=== PATIENT | female | born 1975 | race Caucasian/White ===

== ENCOUNTER 2023-07-26 21:45 | Emergency (ER) | payer MEDICARE, MEDICAID, SELFPAY ==
--- NOTE | ~2023-07-26 | XR_ITS ---
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 RESULT: Lines, tubes, and devices: None. Lungs and pleura: Clear. Cardiomediastinal silhouette: Normal. Other: No acute osseous or upper abdominal finding. IMPRESSION: No acute cardiopulmonary process. Reviewed, dictated and finalized at location K. TER OPERATOR
[2023-07-26 21:45] VITALS: BP 105/65; PULSE 110; RESP 20; TEMP 36.6; O2SAT 100
[2023-07-26 21:50] LABS: Glucose Point of Care 201 mg/dl (65-105)
--- NOTE | 2023-07-26 21:53 | ED.NAVMDI ---
HPI - Nausea/Vomiting/Diarrhea General Chief complaint: Nausea/Vomiting/Diarrhea Stated complaint: sick Time Seen by Provider: 07/26/23 21:48 History of Present Illness HPI Narrative: Patient is a 47 year old female with history of DM, CHF, DVT on Xeralto, CKD here with flu like symptoms. She notes that for the last 2 days she has been having multiple symptoms including headache, sore throat, hot flashes, chills, productive cough, nausea, vomiting and myalgias. She denies obtaining a fever at home. She has been taking some over the counter medication including Vicks cough medicine without help of her symptoms. She notes that multiple family members work in nursing homes so she is unsure if she could have second hand been exposed to anything like COVID. Of note, she recently moved here from [place] and has never been to this or any other local facilities in the past. She takes bumex 2mg in the AM and 1mg in the PM, is unsure if she has put on any additional water weight since this illness began. She notes that her blood sugars have been running close to 300 at home since yesterday, bolused herself some insulin just prior to presentation. She denies any chest pain. No history of CAD or prior MT. Related Data Home Medications Medication Instructions Recorded Confirmed atorvastatin 80 mg tablet 80 mg PO DAILY 07/26/23 07/26/23 bumetanide 1 mg tablet See Rx Instructions .Route .COMPLEX 07/26/23 07/26/23 celecoxib 200 mg capsule 200 mg PO BID 07/26/23 07/26/23 cetirizine 10 mg tablet 10 mg PO DAILY 07/26/23 07/26/23 dapagliflozin propanediol 10 mg 10 mg PO DAILY 07/26/23 07/26/23 tablet (Farxiga) insulin detemir U-100 100 unit/mL 46 unit subcut DAILY 07/26/23 07/26/23 subcutaneous solution (Levemir U-100 Insulin) insulin lispro 100 unit/mL See Rx Instructions .Route .COMPLEX 07/26/23 07/26/23 subcutaneous solution (Humalog U-100 Insulin) metoprolol succinate 25 mg 25 mg PO DAILY 07/26/23 07/26/23 tablet,extended release 24 hr pregabalin 100 mg capsule 100 mg PO DAILY 07/26/23 07/26/23 rivaroxaban 20 mg tablet (Xarelto) 20 mg PO DAILY 07/26/23 07/26/23 sennosides 8.6 mg tablet 8.6 mg PO BID PRN Constipation 07/26/23 07/26/23 Allergies Allergy/AdvReac Type Severity Reaction Status Date / Time cephalexin [From Keflex] Allergy Unknown Verified 07/26/23 21:57 codeine Allergy Unknown Verified 07/26/23 21:57 erythromycin base Allergy Unknown Verified 07/26/23 21:57 Review of Systems Review of Systems: All systems reviewed & are unremarkable except as noted in HPI and below Exam Narrative: GENERAL: Well-appearing, well-nourished, and in no acute distress. HEAD: Normocephalic, atraumatic. EYES: PERRLA and EOMI. ENT: Nares clear. Mucous membranes dry. NECK: Supple. CHEST: Clear to auscultation. No respiratory distress. HEART: Tachycardic. Normal peripheral pulses. ABDOMEN: Soft, nontender, nondistended. EXTREMITIES: Normal range of motion. No edema. SKIN: Warm, dry, no rash. NEURO: No focal deficits. Alert and oriented x3. PSYCH: Normal mood and affect. Course Course Emergency Course: Chart review performed. Patient is here with multiple flu like symptoms. Triage vitals show tachycardia, otherwise grossly normal. POC glucose 201. Patient seen and evaluated. Non toxic appearing. Concern for infectious process including pneumonia, COVID, influenza, RSV, UTI. Workup has been ordered accordingly. Given her complex history with CHF, DVTs and DM will do cardiac workup as well as a DKA workup. She does have a history of CHF, unsure what her EF is, given acute illness with vomiting and tachycardia, will do gentle hydration with 500mL initially and reevaluate. Tylenol ordered for headache. COVID, influenza, RSV negative. CXR reviewed by myself, no acute process. Lab work reviewed. No leukocytosis, electrolytes grossly normal. Creatinine 1.29, no baseline comparison, she does note history of CKD. BNP mildly elevated at
[2023-07-26 22:00] VITALS: O2SAT 100
--- NOTE | 2023-07-26 22:00 | ECG_ITS ---
Measurements Intervals [place] Rate: 106 P: 29 ID: 140 QRS: -18 QRSD: 85 T: 105 QT: 335 QTc: 446 Interpretive Statements SINUS TACHYCARDIA BASELINE ARTIFACT POSSIBLE LEFT ATRIAL ENLARGEMENT [-0.1mV P-WAVE IN V1/V2] POSSIBLE RIGHT VENTRICULAR CONDUCTION DELAY [RSR (QR) IN V1/V2] LOW-VOLTAGE QRS IN PRECORDIAL LEADS LEFT VENTRICULAR HYPERTROPHY AND ST-T CHANGE [VOLTAGE CRITERIA PLUS ST/T ABNORMALITY] ABNORMAL ECG NO PREVIOUS ECG AVAILABLE FOR COMPARISON Electronically Signed On 07-27-2023 17:04:03 SUBWAY GUARD by Richard Schultz M.D.
[2023-07-26 22:44] LABS: SARS-CoV-2 RNA PCR Negative (Negative)
[2023-07-26 22:45] LABS: Influenza A QL RT-PCR Negative (Negative); Influenza B QL RT-PCR Negative (Negative); RSV RNA, RT-PCR Negative (Negative)
[2023-07-26] MEDS: ONDANSETRON HCL ODT 4 MG TABLET PO (22:47)
[2023-07-26 22:51] LABS: Basophils Absolute Auto 0.06 K/mm3 (0.00-0.10); Basophils Percent Auto 0.8 % (0.0-1.0); Eosinophils Absolute Auto 0.18 K/mm3 (0.02-0.50); Eosinophils Percent Auto 2.3 % (1.0-6.0); Hematocrit 42.9 % (35.0-49.0); Hemoglobin 13.5 g/dL (12.0-15.0); Immature Granulocyte Absolute 0.04 K/mm3 (0.00-0.00); Immature Granulocyte Percent A 0.5 % (0.0-0.0); Lymphocytes Absolute Auto 2.02 K/mm3 (1.10-4.50); Lymphocytes Percent Auto 25.7 % (18.0-42.0); Mean Corpuscular HGB Conc 31.5 g/dL (32.0-36.0); Mean Corpuscular Hemoglobin 29.3 pg (27.0-31.0); Mean Corpuscular Volume 93.3 fL (78.0-102.0); Mean Platelet Volume 11.7 fl (9.2-11.8); Monocytes Absolute Auto 0.56 K/mm3 (0.10-0.90); Monocytes Percent Auto 7.1 % (2.0-11.0); Neutrophils Percent Auto 63.6 % (50.0-70.0); Platelet Count Result 206 K/mm3 (150-420); Red Cell Distribution Width 13.4 % (11.6-14.4); White Blood Count 7.9 K/mm3 (4.8-10.8)
[2023-07-26 23:01] LABS: INR 0.9; Partial Thromboplastin Time 25.4 SEC (23.90-30.70); Prothrombin Time 10.1 Seconds (9.50-12.10)
[2023-07-26] MEDS: SODIUM CHLORIDE 0.9% IV 500 ML 999 ML IV CONT (23:02)
[2023-07-26 23:05] VITALS: BP 110/62; PULSE 74; RESP 18; O2SAT 99
[2023-07-26] MEDS: ACETAMINOPHEN 325 MG TABLET 650 MG PO (23:05)
[2023-07-26 23:06] LABS: Alanine Aminotransferase 40 U/L (14-59); Albumin Level 3.4 g/dL (3.4-5.0); Alkaline Phosphatase 228 U/L (46-116); Anion Gap 5 mmol/L (8-16); Aspartate Amino Transferase 17 U/L (15-37); Bilirubin,Total 0.3 mg/dL (0.00-1.00); Blood Urea Nitrogen 16 mg/dL (7-18); Calcium 9.8 mg/dL (8.5-10.1); Carbon Dioxide 31 mmol/L (21-32); Chloride 103 mmol/L (98-108); Estimated CRCL calculation 53 ml/min; Estimated Glomerular Filt Rate 44; Glucose 180 mg/dL (70-99); Lipase 140 U/L (16-77); Magnesium 2.1 mg/dL (1.8-2.4); NT Pro B Type Natriuretic Pept 1359 pg/mL (0-125); Osmolality Calculated 294 mOsm/kg (285-295); Potassium 3.8 mmol/L (3.5-5.1); Sodium 139 mmol/L (136-145); Total Protein 7.7 g/dL (6.4-8.2); Troponin I 26.5 ng/L (0.00-60.4)
[2023-07-26 23:08] LABS: CRP < 0.1 mg/dL (0.0-0.9)
[2023-07-26 23:12] LABS: HCO3 VBG 19.7 mEq/l (24.0-30.0); PCO2 VBG 34.5 mmHg (42.0-48.0); PO2 VBG 44.9 mmHg (35.0-45.0); pH VBG 7.37 (7.33-7.43)
[2023-07-26] MEDS: KETOROLAC 15 MG/ML VIAL (*BKC) IV PUSH (23:21)
[2023-07-26 23:28] LABS: Device ROOM AIR
[2023-07-26 23:36] VITALS: BP 107/62; PULSE 71; RESP 18; TEMP 36.6; O2SAT 100
== END 2023-07-26 23:42 | disposition home or self-care (01) ==
PROVIDERS: Emergency Provider Student in an Organized Health Care Education/Training Program
DX: B34.9 Viral infection, unspecified (principal); R79.89 Other specified abnormal findings of blood chemistry; R51.9 Headache, unspecified; R11.2 Nausea with vomiting, unspecified; I50.9 Heart failure, unspecified; E11.22 Type 2 diabetes mellitus with diabetic chronic kidney disease; N18.9 Chronic kidney disease, unspecified; Z86.718 Personal history of other venous thrombosis and embolism; Z79.01 Long term (current) use of anticoagulants; Z79.899 Other long term (current) drug therapy; Z20.822 Contact with and (suspected) exposure to COVID-19
CPT/HCPCS: 36415; 71046; 80053; 82803; 82948; 83690; 83735; 83880; 84484; 85025; 85610; 85730; 86140; 87637; 93005; 96374; 99284; A9270; J1885; J7040

== ENCOUNTER 2023-08-29 01:53 | Emergency (ER) | payer MEDICARE, SELFPAY ==
[2023-08-29 01:53] VITALS: BP 100/61; PULSE 68; RESP 18; TEMP 36.4; O2SAT 96
[2023-08-29 02:01] LABS: Glucose Point of Care 366 mg/dl (65-105)
--- NOTE | 2023-08-29 02:14 | ED.EXTPRO ---
HPI - Extremity Problem General Chief complaint: Extremity Problem,Nontraumatic Stated complaint: foot pain Time Seen by Provider: 08/29/23 01:59 Source: patient and family Mode of arrival: ambulatory Limitations: no limitations History of Present Illness HPI Narrative: PATIENT IS 47 YEARS OLD WHITE FEMALE CAME TO THE EMERGENCY ROOM BY PRIVATE CAR FROM HOME TELLING ME THAT HER LEFT FOOT IS COLD AND SHE IS WORRIED ABOUT BLOOD CLOT GOING TO HER HEART. PATIENT IS SCHEDULED FOR PERIPHERAL VASCULAR EVALUATION NEXT WEEK BY A SPECIALIST. HISTORY OF DEEP VEIN THROMBOSIS AND PULMONARY EMBOLISM AND CURRENTLY ON ELIQUIS. PATIENT DENIES ANY FEVER, CHILLS, NAUSEA, VOMITING, CHEST PAIN, SHORTNESS OF BREATH, BACK PAIN, BELLY PAIN. PATIENT CONCERN ABOUT THE POSSIBILITY OF THE BLOOD CLOT WILL BUST AND GO TO HER HEART. NO RECENT TRAUMA. Related Data Home Medications Medication Instructions Recorded Confirmed atorvastatin 80 mg tablet 80 mg PO DAILY 07/26/23 07/26/23 bumetanide 1 mg tablet See Rx Instructions .Route .COMPLEX 07/26/23 07/26/23 celecoxib 200 mg capsule 200 mg PO BID 07/26/23 07/26/23 cetirizine 10 mg tablet 10 mg PO DAILY 07/26/23 07/26/23 dapagliflozin propanediol 10 mg 10 mg PO DAILY 07/26/23 07/26/23 tablet (Farxiga) insulin detemir U-100 100 unit/mL 46 unit subcut DAILY 07/26/23 07/26/23 subcutaneous solution (Levemir U-100 Insulin) insulin lispro 100 unit/mL See Rx Instructions .Route .COMPLEX 07/26/23 07/26/23 subcutaneous solution (Humalog U-100 Insulin) metoprolol succinate 25 mg 25 mg PO DAILY 07/26/23 07/26/23 tablet,extended release 24 hr pregabalin 100 mg capsule 100 mg PO DAILY 07/26/23 07/26/23 rivaroxaban 20 mg tablet (Xarelto) 20 mg PO DAILY 07/26/23 07/26/23 sennosides 8.6 mg tablet 8.6 mg PO BID PRN Constipation 07/26/23 07/26/23 Allergies Allergy/AdvReac Type Severity Reaction Status Date / Time cephalexin [From Keflex] Allergy Unknown Verified 07/26/23 21:57 codeine Allergy Unknown Verified 07/26/23 21:57 erythromycin base Allergy Unknown Verified 07/26/23 21:57 Review of Systems Review of Systems: All systems reviewed & are unremarkable except as noted in HPI and below Exam Narrative: GENERAL APPEARANCE: WELL-DEVELOPED, WELL-NOURISHED SKIN: NORMAL COLOR HEAD: NORMOCEPHALIC, NONTRAUMATIC EYES: CLEAR CONJUNCTIVA ENT: OROPHARYNX NORMAL, EARS NORMAL, NOSE NORMAL NECK: SUPPLE, NONTENDER CHEST AND RESPIRATORY: AIRWAY PATENT, NO RESPIRATORY DISTRESS, NO ACCESSORY MUSCLE USE HEART: REGULAR RATE/RHYTHM ABDOMEN: SOFT, NONTENDER, NO ORGANOMEGALY, QUIET BOWEL SOUNDS VASCULAR: NORMAL PERIPHERAL PULSES, NORMAL CAPILLARY REFILL. MUSCULOSKELETAL: LEFT FOOT SHOWED STATUS POST BEAK TOE AMPUTATION, CALLUS FORMATION AT THE PLANTAR SIDE OF THE 2ND TOE. NO BRUISES, NO SWELLING, NO ERYTHEMA, BOTH FEET ARE WARM AT THE SAME LEVEL. PEDAL PULSE AND TIBIALIS POSTERIOR ARE PALPABLE BILATERALLY NEUROLOGIC: ALERT AND ORIENTED ?3, STERNMAN IS NORMAL TESTED, NO GROSS MOTOR DEFICIT Course Vital Signs Vital signs: Vital Signs Temperature 36.4 C 08/29/23 01:53 Pulse Rate 68 08/29/23 01:53 Respiratory Rate 18 08/29/23 01:53 Blood Pressure 100/61 08/29/23 01:53 Pulse Oximetry 96 08/29/23 01:53 Oxygen Delivery Room Air 08/29/23 01:53 Temperature 36.4 C 08/29/23 01:53 Pulse Rate 68 08/29/23 01:53 Respiratory Rate 18 08/29/23 01:53 Blood Pressure 100/61 08/29/23 01:53 Pulse Oximetry 96 08/29/23 01:53 Oxygen Delivery Room Air 08/29/23 01:53 MDM - Extremity (Nontraumatic) Lab Data Labs: Lab Results 08/29/23 Range/Units 01:59 POC Capillary Glucose 366 H (65-
== END 2023-08-29 03:03 | disposition home or self-care (01) ==
PROVIDERS: Emergency Provider Emergency Medicine
DX: M79.672 Pain in left foot (principal); F41.9 Anxiety disorder, unspecified; Z79.4 Long term (current) use of insulin; Z79.899 Other long term (current) drug therapy; Z79.01 Long term (current) use of anticoagulants
CPT/HCPCS: 82948; 99282

== ENCOUNTER 2023-10-29 20:15 | Emergency (ER) | payer MEDICARE, MEDICAID, SELFPAY ==
[2023-10-29] VITALS (9 sets, daily range): BP systolic 110–142; BP diastolic 58–111; PULSE 98–109; RESP 16–20; TEMP 36.6; O2SAT 94–99
--- NOTE | ~2023-10-29 | XR_ITS ---
EXAMINATION: XR chest 1V portable INDICATION: Chest pain TECHNIQUE: Portable AP chest at 2115 hours COMPARISON: 07/26/2023 FINDINGS: The lungs are free of acute opacities. No pleural effusion or pneumothorax. The cardiomedia stinal silhouette is normal. IMPRESSION: 1. No acute cardiopulmonary abnormality. Reviewed, dictated and finalized at location F.
--- NOTE | 2023-10-29 20:36 | ECG_ITS ---
Measurements Intervals [place] Rate: 112 P: 40 ME: 152 QRS: -19 QRSD: 71 T: 90 QT: 326 QTc: 446 Interpretive Statements SINUS TACHYCARDIA LEFT VENTRICULAR HYPERTROPHY WITH ST-T CHANGE BORDERLINE ST-T WAVE ABNORMALITY- ANTEROLATERAL LEADS BASELINE ARTIFACT- I, II, III, AVR, AVL, AVF, V1-V6 ABNORMAL ECG COMPARED TO ECG 07/26/2023 22:17:56 NO SIGNIFICANT CHANGES Electronically Signed On 10-30-2023 6:41:22 CDT by Qamar Gill D.O.
--- NOTE | 2023-10-29 20:49 | PC.NURSE ---
Attempted to obtain IV access x [address] Peters aware and states that we can hold off on an IV for now and wait for her lab results to come back.
[2023-10-29 21:06] LABS: Basophils Absolute Auto 0.08 K/mm3 (0.00-0.10); Eosinophils Absolute Auto 0.21 K/mm3 (0.02-0.50); Eosinophils Percent Auto 2.6 % (1.0-6.0); Hematocrit 39.7 % (35.0-49.0); Hemoglobin 11.9 g/dL (12.0-15.0); Immature Granulocyte Absolute 0.04 K/mm3 (0.00-0.00); Immature Granulocyte Percent A 0.5 % (0.0-0.0); Lymphocytes Absolute Auto 1.31 K/mm3 (1.10-4.50); Lymphocytes Percent Auto 16.2 % (18.0-42.0); Mean Corpuscular Hemoglobin 29.3 pg (27.0-31.0); Mean Corpuscular Volume 97.8 fL (78.0-102.0); Mean Platelet Volume 11.9 fl (9.2-11.8); Monocytes Absolute Auto 0.52 K/mm3 (0.10-0.90); Monocytes Percent Auto 6.4 % (2.0-11.0); Neutrophils Absolute Auto 5.91 K/mm3 (1.70-7.20); Neutrophils Percent Auto 73.3 % (50.0-70.0); Platelet Count Result 145 K/mm3 (150-420); Red Blood Count 4.06 M/mm3 (4.20-5.40); Red Cell Distribution Width 14.5 % (11.6-14.4); White Blood Count 8.1 K/mm3 (4.8-10.8)
--- NOTE | 2023-10-29 21:06 | PC.NURSE ---
2020: Pt shaking, stating she is cold. Pt family states that when she gets really cold, she goes into seizures . Pt denies taking any medications for seizures. Multiple warm blankets provided.
[2023-10-29 21:21] LABS: D Dimer 0.22 mg/L (0.19-0.50); Partial Thromboplastin Time 27.5 Sec (23.9-30.70); Prothrombin Time 10.6 Seconds (9.50-12.1)
[2023-10-29 21:37] LABS: Alanine Aminotransferase 34 U/L (14-59); Albumin Level 3.4 g/dL (3.4-5.0); Alkaline Phosphatase 175 U/L (46-116); Anion Gap 8 mmol/L (8-16); Aspartate Amino Transferase 24 U/L (15-37); Bilirubin,Total 0.3 mg/dL (0.00-1.00); Blood Urea Nitrogen 30 mg/dL (7-18); Calcium 9.1 mg/dL (8.5-10.1); Carbon Dioxide 30 mmol/L (21-32); Chloride 103 mmol/L (98-108); Estimated CRCL calculation 54 ml/min; Estimated Glomerular Filt Rate 45; Glucose 227 mg/dL (70-99); Lipase 69 U/L (16-77); NT Pro B Type Natriuretic Pept 763 pg/mL (0-125); Osmolality Calculated 305 mOsm/kg (285-295); Potassium 4.7 mmol/L (3.5-5.1); Sodium 141 mmol/L (136-145); Total Protein 6.7 g/dL (6.4-8.2); Troponin I 13.9 ng/L (0.00-60.4)
[2023-10-29 21:39] LABS: CRP < 0.5 mg/dL (0.0-0.9)
--- NOTE | 2023-10-29 21:46 | PC.NURSE ---
Updated pt on plan for repeat EKG/troponin. Pt states that her CP has completely resolved, and that she wants to go home. Pt states that she feels fine and does not wish to stay for these repeat tests. Dr. Peters aware and will speak with the patient.
[2023-10-29 21:51] LABS: SARS-CoV-2 RNA PCR Negative (Negative)
[2023-10-29 21:57] LABS: Influenza A QL RT-PCR Negative (Negative); Influenza B QL RT-PCR Negative (Negative); RSV RNA, RT-PCR Negative (Negative)
--- NOTE | 2023-10-29 22:01 | ED.CHESTPAIN ---
HPI - Chest Pain General Chief Complaint: Chest Pain Stated Complaint: chest pain Time Seen by Provider: 10/29/23 20:36 Source: patient and family Mode of arrival: ambulatory Limitations: no limitations History of Present Illness HPI narrative: this is a 39-year-old female with history of CHF diabetes presents with chest pain with some deep inspiration and movement with no nausea vomiting no shortness of breath no diaphoresis. There is no fever chills vitals are stable there is no abdominal pain no dysuria no flank pain. MD complaint: chest pain and chest discomfort Onset (ago): day(s) Timing of current episode: episodic, now resolved and other ( Reproduced with palpation) Prior episodes: Yes Onset: during exertion Pain location: substernal and parasternal Severity: mild Quality: aching Relieving factors: nothing Risk Factors Coronary artery disease risk factors: diabetes, smoking history and hyperlipidemia Related Data Home Medications Medication Instructions Recorded Confirmed atorvastatin 80 mg tablet 80 mg PO DAILY 07/26/23 10/29/23 bumetanide 1 mg tablet See Rx Instructions .Route .COMPLEX 07/26/23 10/29/23 celecoxib 200 mg capsule 200 mg PO BID 07/26/23 10/29/23 dapagliflozin propanediol 10 mg 10 mg PO DAILY 07/26/23 10/29/23 tablet (Farxiga) insulin detemir U-100 100 unit/mL 46 unit subcut DAILY 07/26/23 10/29/23 subcutaneous solution (Levemir U-100 Insulin) insulin lispro 100 unit/mL See Rx Instructions .Route .COMPLEX 07/26/23 10/29/23 subcutaneous solution (Humalog U-100 Insulin) metoprolol succinate 25 mg 25 mg PO DAILY 07/26/23 10/29/23 tablet,extended release 24 hr sennosides 8.6 mg tablet 8.6 mg PO BID PRN Constipation 07/26/23 10/29/23 aspirin 81 mg PO DAILY 10/29/23 10/29/23 ezetimibe 10 mg tablet 10 mg PO DAILY 10/29/23 10/29/23 gabapentin 400 mg capsule See Rx Instructions .Route .COMPLEX 10/29/23 10/29/23 Allergies Allergy/AdvReac Type Severity Reaction Status Date / Time cephalexin [From Keflex] Allergy Unknown Verified 10/29/23 20:51 codeine Allergy Unknown Verified 10/29/23 20:51 erythromycin base Allergy Unknown Verified 10/29/23 20:51 Review of Systems Review of Systems: All systems reviewed & are unremarkable except as noted in HPI and below PMFSH Past Medical History Medical History Diabetes mellitus Exam Const: General: healthy appearing Nutritional Appearance: well nourished Orientation/consciousness: patient oriented x3 Limitations: no limitations Eyes: Conjunctivae: conjunctivae normal Chest: Chest palpation & inspection: normal inspection of the chest and tenderness Other: reproducible chest pain with palpation Resp: Effort & Inspection: normal respiratory effort Auscultation: clear to auscultation bilaterally Cardio: Rate: regular rate Rhythm: regular rhythm GI: GI Palp: Yes Soft to palpation Auscultation: normal bowel sounds : General: Yes bladder normal to palpation Skin: General skin exam: normal color Extrem: General: normal to inspection, no clubbing, cyanosis or edema and no pedal edema Course Course Emergency Course: patient had EKG with no ST or T changes labs showed negative troponin negative D-dimer chest x-ray with no significant abnormality. Vitals are stable her BNP was mildly elevated at 700. The patient had negative COVID and is requesting to go home because she feels much better. Her chest pain has resolved completely it was reproducible with palpation. Vital Signs Vital signs: Vital Signs Pulse Rate 108 H 10/29/23 20:15 Temperature 36.6 C 10/29/23 20:17 Pulse Rate 106 H 10/29/23 21:46 Respiratory Rate 18 10/29/23 21:46 Blood Pressure 110/58 L 10/29/23 21:46 Pulse Oximetry 96 10/29/23 21:46 Oxygen Delivery Room Air 10/29/23 21:41 MDM - Chest Pain Lab Data 10/29/23 21:02 10/29/23 21:02
== END 2023-10-29 22:10 | disposition home or self-care (01) ==
PROVIDERS: Emergency Provider Emergency Medicine; PCP Physician Assistant
DX: M94.0 Chondrocostal junction syndrome [Tietze] (principal); I50.9 Heart failure, unspecified; E11.9 Type 2 diabetes mellitus without complications; Z20.822 Contact with and (suspected) exposure to COVID-19
CPT/HCPCS: 36415; 71045; 80053; 83690; 83880; 84484; 85025; 85380; 85610; 85730; 86140; 87637; 93005; 99284

== ENCOUNTER 2023-12-11 19:34 | Emergency (ER) | payer MEDICARE, MEDICAID, SELFPAY ==
--- NOTE | 2023-12-11 19:35 | ED.NAVMDI ---
HPI - Nausea/Vomiting/Diarrhea General Chief complaint: Nausea/Vomiting/Diarrhea Stated complaint: Nausea and Vomiting Time Seen by Provider: 12/11/23 19:35 Source: patient Mode of arrival: EMS Limitations: no limitations History of Present Illness HPI Narrative: Patient is a 47-year-old female with a hangover symptoms today. She is just feeling not well after drinking 16 drinks last night. She is having a good time last evening due to her birthday. She is not a baseline alcoholic. He does not drink all the time. She does not have alcohol withdrawal problems. 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 She is diabetic type 2, insulin using. Blood sugar in route was 181. She came by ambulance. MD elicited complaint: nausea and vomiting Pertinent past history: anorexia Onset (ago): day(s) (1) Description of vomiting: watery Associated nausea: Yes Associated abdominal pain: No Location of pain: none Severity: moderate ( nausea issues) Pain scale (0-10): 5 Exacerbating factors: none Relieving factors: none Context: alcohol abuse ( last night) and other Associated symptoms: weakness Related Data Home Medications Medication Instructions Recorded Confirmed atorvastatin 80 mg tablet 80 mg PO DAILY 07/26/23 12/11/23 bumetanide 1 mg tablet See Rx Instructions .Route .COMPLEX 07/26/23 10/29/23 celecoxib 200 mg capsule 200 mg PO BID 07/26/23 12/11/23 dapagliflozin propanediol 10 mg 10 mg PO DAILY 07/26/23 12/11/23 tablet (Farxiga) insulin detemir U-100 100 unit/mL 46 unit subcut DAILY 07/26/23 10/29/23 subcutaneous solution (Levemir U-100 Insulin) insulin lispro 100 unit/mL See Rx Instructions .Route .COMPLEX 07/26/23 12/11/23 subcutaneous solution (Humalog U-100 Insulin) metoprolol succinate 25 mg 25 mg PO DAILY 07/26/23 12/11/23 tablet,extended release 24 hr aspirin 81 mg PO DAILY 10/29/23 12/11/23 ezetimibe 10 mg tablet 10 mg PO DAILY 10/29/23 12/11/23 gabapentin 400 mg capsule See Rx Instructions .Route .COMPLEX 10/29/23 12/11/23 Allergies Allergy/AdvReac Type Severity Reaction Status Date / Time cephalexin [From Keflex] Allergy Unknown Unknown Verified 12/11/23 19:36 codeine Allergy Unknown Verified 12/11/23 19:36 erythromycin base Allergy Unknown Verified 12/11/23 19:36 Review of Systems Review of Systems: All systems reviewed & are unremarkable except as noted in HPI and below Constitutional: Constitutional: Reports no additional constitutional complaints Eyes: Eyes: Reports no additional eye complaints ENT: Reports system reviewed and no additional complaints, except as documented Cardiovascular: Cardiovascular: Reports no additional cardiovascular complaints Respiratory: Respiratory: Reports no additional respiratory complaints Gastrointestinal: Gastrointestinal: Reports no additional gastrointestinal complaints Genitourinary: Genitourinary: Reports no additional female genitourinary complaints Musculoskeletal: Musculoskeletal: Reports no additional musculoskeletal complaints Integumentary/Breasts: Skin/Breast: Reports system reviewed and no additional complaints, except as docu Neurologic: Reports system reviewed and no additional complaints, except as documented Psychiatric: Psychiatric: Reports no additional psychiatric complaints Endocrine: Endocrine: Reports no additional endocrine complaints Hematologic/Lymphatic: Hematologic/Lymphatic: Reports no additional hematologic/lymphatic complaints Allergic/Immunologic: Allergic/Immunologic: Reports no additional allergic/immunologic complaints PMFSH Past Medical History Medical History Diabetes mellitus Exam Const: General: ill appearing Nutritional Appearance: well nourished Orientation/consciousness: patient oriented x3 HENMT: Head: normal to inspection Ears: external ears normal Face/Nose/Sinus: Normal external nose present Eyes: Conjunctiv
[2023-12-11] MEDS: SODIUM CHLORIDE 0.9% IV 1,000 ML 999 ML IV CONT (19:58)
[2023-12-11 19:59] VITALS: PULSE 82; RESP 18; TEMP 36.6; O2SAT 98
[2023-12-11] MEDS: PROMETHAZINE HCL 25 MG/ML AMPUL IVPB (19:59)
[2023-12-11 20:15] VITALS: BP 141/61
[2023-12-11 20:17] LABS: Basophils Absolute Auto 0.06 K/mm3 (0.00-0.10); Basophils Percent Auto 0.6 % (0.0-1.0); Eosinophils Absolute Auto 0.08 K/mm3 (0.02-0.50); Eosinophils Percent Auto 0.8 % (1.0-6.0); Hematocrit 44.1 % (35.0-49.0); Hemoglobin 12.8 g/dL (12.0-15.0); Immature Granulocyte Absolute 0.03 K/mm3 (0.00-0.00); Immature Granulocyte Percent A 0.3 % (0.0-0.0); Lymphocytes Absolute Auto 1.42 K/mm3 (1.10-4.50); Lymphocytes Percent Auto 15.1 % (18.0-42.0); Mean Corpuscular Hemoglobin 29.2 pg (27.0-31.0); Mean Corpuscular Volume 100.7 fL (78.0-102.0); Mean Platelet Volume 12.2 fl (9.2-11.8); Monocytes Absolute Auto 0.65 K/mm3 (0.10-0.90); Monocytes Percent Auto 6.9 % (2.0-11.0); Neutrophils Absolute Auto 7.18 K/mm3 (1.70-7.20); Neutrophils Percent Auto 76.3 % (50.0-70.0); Platelet Count Result 159 K/mm3 (150-420); Red Blood Count 4.38 M/mm3 (4.20-5.40); Red Cell Distribution Width 14.1 % (11.6-14.4); White Blood Count 9.4 K/mm3 (4.8-10.8)
[2023-12-11 20:35] LABS: Albumin Level 2.4 g/dL (3.4-5.0); Alkaline Phosphatase 217 U/L (46-116); Anion Gap 9 mmol/L (4-12); Aspartate Amino Transferase 38 U/L (15-37); Bilirubin,Total 0.4 mg/dL (0.00-1.00); Blood Urea Nitrogen 22 mg/dL (7-18); Calcium 8.8 mg/dL (8.5-10.1); Carbon Dioxide 25 mmol/L (21-32); Chloride 106 mmol/L (98-108); Estimated CRCL calculation 77 ml/min; Estimated Glomerular Filt Rate > 60; Glucose 174 mg/dL (70-99); Magnesium 2.6 mg/dL (1.8-2.4); Osmolality Calculated 297 mOsm/kg (285-295); Potassium 5.3 mmol/L (3.5-5.1); Sodium 140 mmol/L (136-145); Total Protein 7.2 g/dL (6.4-8.2)
--- NOTE | 2023-12-11 20:52 | PC.NURSE ---
Pt assisted to restroom with wheelchair. Pt irritable and moaning. Denies pain. Stated I don't fucking feel good . Pt bed linens changed, pt placed in gown and repositioned for comfort.
[2023-12-11 20:54] LABS: Alanine Aminotransferase 34 U/L (14-59)
[2023-12-11] MEDS: INSULIN HUMAN REGULAR (*BKC) 1,000 UNITS/10 ML VIAL 5 UNITS IV PUSH (21:01)
[2023-12-11] MEDS: DEXTROSE 50% 25 GM/50 ML SYRINGE IV PUSH (21:02)
[2023-12-11 21:49] LABS: Glucose Point of Care 176 mg/dl (65-105)
[2023-12-11 22:27] LABS: Anion Gap 8 mmol/L (4-12); Blood Urea Nitrogen 23 mg/dL (7-18); Calcium 8.7 mg/dL (8.5-10.1); Carbon Dioxide 30 mmol/L (21-32); Chloride 109 mmol/L (98-108); Estimated CRCL calculation 66 ml/min; Estimated Glomerular Filt Rate 57; Glucose 163 mg/dL (70-99); Osmolality Calculated 311 mOsm/kg (285-295); Sodium 147 mmol/L (136-145)
[2023-12-11 22:45] VITALS: BP 132/88; PULSE 88; RESP 16; TEMP 36.6; O2SAT 97
--- NOTE | 2023-12-30 19:20 | PC.NURSE ---
Addendum entered by Princess Galvan RN 01/07/24 19:27: on 12/11/2023 @ 1958 promethazine was given thru [facility] in [place]. Infusion was stopped @ 2009. Error in prior documentation Original Note: Addendum: On 12/11/2023 @ 1952 promethazine was stopped
== END 2023-12-11 23:13 | disposition home or self-care (01) ==
PROVIDERS: Emergency Provider Emergency Medicine; PCP Physician Assistant
DX: K52.9 Noninfective gastroenteritis and colitis, unspecified (principal); E86.0 Dehydration; F10.10 Alcohol abuse, uncomplicated; E87.5 Hyperkalemia; E11.9 Type 2 diabetes mellitus without complications; Z79.4 Long term (current) use of insulin; Z79.82 Long term (current) use of aspirin
CPT/HCPCS: 36415; 80048; 80053; 82948; 83735; 85025; 96361; 96365; 96374; 96375; 99284; J1815; J2550; J7030

== ENCOUNTER 2024-01-02 13:22 | Emergency (ER) | payer MEDICARE, MEDICAID, SELFPAY ==
--- NOTE | ~2024-01-02 | XR_ITS ---
EXAMINATION: XR shoulder RT min 2V DATE: 01/02/2024 13:42 INDICATION: Right shoulder pain. Fall. TECHNIQUE: 3 views of right shoulder were obtained. COMPARISON: None. FINDINGS: Bone alignment is normal. No fracture. There is mild osteoarthritis of glenohumeral joint a nd moderate osteoarthritis of acromioclavicular joint. IMPRESSION: 1. Polyarticular osteoarthritis. Reviewed, dictated and finalized at location A.
[2024-01-02 13:22] VITALS: BP 94/64; PULSE 83; RESP 16; TEMP 36.6; O2SAT 97
--- NOTE | 2024-01-02 13:32 | ED.UPPEXIN ---
HPI - Extremity Injury (Upper) General Chief Complaint: Extremity Injury, Upper Stated Complaint: shoulder pain Time Seen by Provider: 01/02/24 13:26 Source: patient and family Mode of arrival: ambulatory Limitations: no limitations History of Present Illness HPI narrative: this is a 48-year-old female that had a fall approximately 3 weeks ago and injured her right shoulder has been taking prescribed past medication with minimal relief. Has decreased range of motion secondary to pain. No other injuries, with no numbness or tingling radiating down her shoulder, rating her pain about a 10. MD complaint: injury to: right Onset (ago): week(s) Other Extremity Injury: Right: shoulder ( decreased range of motion and tenderness with palpation) Other injuries: none Handedness: right Place: outdoors Severity: severe Severity scale (1-10): 8 Relieving factors: immobilization Exacerbating factors: movement of extremity Context: fall Associated symptoms: denies other symptoms Related Data Home Medications Medication Instructions Recorded Confirmed atorvastatin 80 mg tablet 80 mg PO DAILY 07/26/23 01/02/24 bumetanide 1 mg tablet See Rx Instructions .Route .COMPLEX 07/26/23 01/02/24 celecoxib 200 mg capsule 200 mg PO BID 07/26/23 01/02/24 dapagliflozin propanediol 10 mg 10 mg PO DAILY 07/26/23 01/02/24 tablet (Farxiga) insulin detemir U-100 100 unit/mL 46 unit subcut DAILY 07/26/23 01/02/24 subcutaneous solution (Levemir U-100 Insulin) insulin lispro 100 unit/mL See Rx Instructions .Route .COMPLEX 07/26/23 01/02/24 subcutaneous solution (Humalog U-100 Insulin) metoprolol succinate 25 mg 25 mg PO DAILY 07/26/23 01/02/24 tablet,extended release 24 hr aspirin 81 mg PO DAILY 10/29/23 01/02/24 ezetimibe 10 mg tablet 10 mg PO DAILY 10/29/23 01/02/24 gabapentin 400 mg capsule See Rx Instructions .Route .COMPLEX 10/29/23 01/02/24 Allergies Allergy/AdvReac Type Severity Reaction Status Date / Time cephalexin [From Keflex] Allergy Unknown Unknown Verified 01/02/24 13:28 codeine Allergy Unknown Verified 01/02/24 13:28 erythromycin base Allergy Unknown Verified 01/02/24 13:28 Review of Systems Review of Systems: All systems reviewed & are unremarkable except as noted in HPI and below PMFSH Past Medical History Medical History Diabetes mellitus Exam Const: General: healthy appearing, no acute distress and alert Nutritional Appearance: well nourished Orientation/consciousness: patient oriented x3 Limitations: no limitations Neck: Neck: normal visual inspection Chest: Chest palpation & inspection: normal inspection of the chest Resp: Effort & Inspection: normal respiratory effort Auscultation: clear to auscultation bilaterally Cardio: Rate: regular rate Rhythm: regular rhythm Skin: General skin exam: normal color Rashes: no rashes Wounds: no wounds Neuro: General: patient oriented x3, moves all extremities and no meningeal signs Extrem: Other: Decreased range of motion right shoulder with tenderness in the bicipital groove with active and passive movement. Course Course Emergency Course: Patient received 60mg IM Toradol and after reassessment patient's pain level has a mildly improved, x-ray performed of the right shoulder shows no acute fractures. Vital Signs Vital signs: Vital Signs Temperature 36.6 C 01/02/24 13:22 Pulse Rate 83 01/02/24 13:22 Respiratory Rate 16 01/02/24 13:22 Blood Pressure 94/64 L 01/02/24 13:22 Pulse Oximetry 97 01/02/24 13:22 Oxygen Delivery Room Air 01/02/24 13:22 Temperature 36.6 C 01/02/24 13:22 Pulse Rate 83 01/02/24 13:22 Respiratory Rate 16 01/02/24 13:22 Blood Pressure 94/64 L 01/02/24 13:22 Pulse Oximetry 97 01/02/24 13:22 Oxygen Delivery Room Air 01/02/24 13:22 Critical Care Time Critical Care Time Critical Care Time: No Discharge Plan Disch
--- NOTE | 2024-01-02 13:33 | PC.NURSE ---
Patient taken to xray
[2024-01-02] MEDS: KETOROLAC (*BKC) 60 MG/2 ML VIAL IM (13:45)
[2024-01-02 14:07] VITALS: BP 87/66; PULSE 88; RESP 16; TEMP 36.6; O2SAT 97
== END 2024-01-02 14:07 | disposition home or self-care (01) ==
LOC: CHSED 14:00
PROVIDERS: Emergency Provider Emergency Medicine; PCP Physician Assistant
DX: S46.011A Strain of muscle(s) and tendon(s) of the rotator cuff of right shoulder, initial encounter (principal); T14.90XA Injury, unspecified, initial encounter; E11.9 Type 2 diabetes mellitus without complications
CPT/HCPCS: 73030; 96372; 99283; J1885

== ENCOUNTER 2024-01-28 10:34 | Outpatient (CLI) | payer MEDICARE, MEDICAID, SELFPAY ==
--- NOTE | ~2024-01-28 | MR_ITS ---
EXAMINATION: MR scapula RT wo con DATE: 01/28/2024 11:33 INDICATION: Right shoulder pain and limited range of motion post accident one month prior TECHNIQUE: Magnetic resonance imaging (MRI) of the right scapula was performed without intravenous co ntrast. Sequences included axial PD-weighted FS FSE and sagittal and coronal T1-weighted FSE and T2-w eighted FS FSE. COMPARISON: Right shoulder radiographs dated 01/02/2024 FINDINGS: Bone alignment is normal. Normal bone marrow signal with no fracture or pathologic marrow replacing p rocess. There is mild osteoarthritis at the right acromioclavicular and glenohumeral joints. Glenoid labrum appears normal. Physiologic amount fluid in the glenohumeral joint. The long head biceps tendo n appears normal. Moderate supraspinatus and mild subscapularis tendinopathy without discrete tear. L flynn head biceps tendon is normal. There is increased fluid in the subacromial/subdeltoid bursa consis tent with mild bursitis. There are a few normal right axillary lymph nodes with thin crescentic corti adriana surrounding large central fatty royal. IMPRESSION: 1. Moderate supraspinatus and mild subscapularis tendinopathy without tear. 2. Mild subacromial/subdeltoid bursitis. 2. Mild acromion clavicular and glenohumeral osteoarthritis. Reviewed, dictated and finalized at location A.
== END 2024-01-28 10:35 | disposition home or self-care (01) ==
PROVIDERS: PCP Physician Assistant; Visit Provider Physician Assistant
DX: M25.511 Pain in right shoulder (principal); M75.21 Bicipital tendinitis, right shoulder; M75.51 Bursitis of right shoulder; M19.011 Primary osteoarthritis, right shoulder
CPT/HCPCS: 73218

== ENCOUNTER 2024-06-25 11:53 | Emergency (ER) | payer MEDICARE, MEDICAID, SELFPAY ==
[2024-06-25 11:53] VITALS: BP 112/60; PULSE 103; RESP 16; TEMP 36.6; O2SAT 100
--- NOTE | 2024-06-25 12:22 | ED.WOUNDLAC ---
HPI - Wound/Laceration General Chief Complaint: Wound/Laceration Stated Complaint: WOUND CHECK Source: patient and family Mode of arrival: ambulatory Limitations: no limitations History of Present Illness HPI narrative: this is 48-year-old female with a blister on the heel of her left foot does see wound care and does have a history of diabetes. There is no drainage no warmth there is tender to touch. There is no fever chills, patient does complain of sinus congestion is tobacco abuser with no shortness of breath. Onset (ago): day(s) Patient tetanus UTD: Yes Related Data Home Medications Medication Instructions Recorded Confirmed atorvastatin 80 mg tablet 80 mg PO DAILY 07/26/23 01/02/24 bumetanide 1 mg tablet See Rx Instructions .Route .COMPLEX 07/26/23 01/02/24 celecoxib 200 mg capsule 200 mg PO BID 07/26/23 01/02/24 dapagliflozin propanediol 10 mg 10 mg PO DAILY 07/26/23 01/02/24 tablet (Farxiga) insulin detemir U-100 100 unit/mL 46 unit subcut DAILY 07/26/23 01/02/24 subcutaneous solution (Levemir U-100 Insulin) insulin lispro 100 unit/mL See Rx Instructions .Route .COMPLEX 07/26/23 01/02/24 subcutaneous solution (Humalog U-100 Insulin) metoprolol succinate 25 mg 25 mg PO DAILY 07/26/23 01/02/24 tablet,extended release 24 hr aspirin 81 mg PO DAILY 10/29/23 01/02/24 ezetimibe 10 mg tablet 10 mg PO DAILY 10/29/23 01/02/24 gabapentin 400 mg capsule See Rx Instructions .Route .COMPLEX 10/29/23 01/02/24 Allergies Allergy/AdvReac Type Severity Reaction Status Date / Time cephalexin [From Keflex] Allergy Unknown Unknown Verified 01/02/24 13:28 codeine Allergy Unknown Verified 01/02/24 13:28 erythromycin base Allergy Unknown Verified 01/02/24 13:28 Review of Systems Review of Systems: All systems reviewed & are unremarkable except as noted in HPI and below PMFSH Past Medical History Medical History Diabetes mellitus Exam Const: General: healthy appearing and no acute distress Nutritional Appearance: well nourished Orientation/consciousness: patient oriented x3 Limitations: no limitations HENMT: Other: Sinus congestion with drainage Eyes: Conjunctivae: conjunctivae normal Neck: Neck: normal visual inspection Chest: Chest palpation & inspection: normal inspection of the chest Resp: Effort & Inspection: normal respiratory effort Auscultation: clear to auscultation bilaterally Cardio: Rate: regular rate Rhythm: regular rhythm Skin: Wounds: wounds noted Other: blister the left heel Course Course Emergency Course: patient with some sinus congestion COVID RSV influenza and strep all performed and reviewed. Patient does follow with wound care and has a blister on her left heel and will give a dose of p.o. clindamycin in the ER. Vital Signs Vital signs: Vital Signs Temperature 36.6 C 06/25/24 11:53 Pulse Rate 103 H 06/25/24 11:53 Respiratory Rate 16 06/25/24 11:53 Blood Pressure 112/60 06/25/24 11:53 Pulse Oximetry 100 06/25/24 11:53 Oxygen Delivery Room Air 06/25/24 11:53 Temperature 36.6 C 06/25/24 11:53 Pulse Rate 103 H 06/25/24 11:53 Respiratory Rate 16 06/25/24 11:53 Blood Pressure 112/60 06/25/24 11:53 Pulse Oximetry 100 06/25/24 11:53 Oxygen Delivery Room Air 06/25/24 11:53 MDM - Wound/Laceration Lab Data Labs: Lab Results 06/25/24 Range/Units 12:03 Influenza A (RT-PCR) Negative (Negative) Influenza B (RT-PCR) Negative (Negative) RSV (RT-PCR) Negative (Negative) SARS-CoV-2 RNA (RT-PCR) Negative (Negative) Group A Strep (PCR) Not detected (Negative) Critical Care Time Critical Care Time Critical Care Time: No Discharge Plan Discharge Clinical Impression: Abscess Patient Disposition: Home, Self-Care Condition: Stable Instructions: Antibiotic Form, Abscess (ED) Additional Instructions: advised to keep follow-up appointment with wound care specialty and take medicine as prescribed. For ear pain and pressure can take Claritin [id number] daily x1 week Prescriptions: New clindamycin HCl 300 mg capsule 300 mg PO Q6H 10 Days Qty: 40 0RF No Action gabapentin 400 mg capsule See Rx Instructions .ROUTE .COMPLEX Rx Instructions: Take 1 capsule in the morning Take 1 capsule in the afternoon Take 3 capsules at bedtime ezetimibe 10 mg tablet 10 mg PO DAILY aspirin 81 mg PO DAILY celecoxib 200 mg Capsule 200 mg PO BID atorvastatin 80 mg Tablet 80 mg PO DAILY bumetanide 1 mg Tablet See Rx Instructions .ROUTE .COMPLEX Rx Instructions: Take 2 tabs in mornings and 1 every evening metoprolol succinate 25 mg Tablet Extended Release 24 Hr 25 mg PO DAILY insulin lispro [Humalog U-100 Insulin] 100 unit/mL Solution See Rx Instructions .ROUTE .COMPLEX Rx Instructions: 8 units + SSI TID c meals Levemir U-100 Insulin 100 unit/mL Solution 46 unit SUBCUT DAILY dapagliflozin propanediol [Farxiga] 10 mg Tablet 10 mg PO DAILY promethazine 12.5 mg tablet 12.5 mg PO Q8H PRN (Reason: nausea and vomiting) Qty: 10 0RF Rx Instructions: 1-2 tabs per dose Follow-up/Referrals: Lance,MELLISSA Kent [Primary Care Provider] - Time of Disposition: 12:58
[2024-06-25] MEDS: CLINDAMYCIN HCL 150 MG CAP 600 MG PO (12:26)
[2024-06-25 12:54] LABS: SARS-CoV-2 RNA PCR Negative (Negative)
[2024-06-25 12:55] LABS: Influenza A QL RT-PCR Negative (Negative); Influenza B QL RT-PCR Negative (Negative); RSV RNA, RT-PCR Negative (Negative); Strep Group A RT-PCR NOT DETECTED (Negative)
[2024-06-25 13:00] VITALS: BP 118/64; PULSE 98; RESP 18; TEMP 36.2; O2SAT 98
== END 2024-06-25 13:00 | disposition home or self-care (01) ==
PROVIDERS: Emergency Provider Emergency Medicine; PCP Physician Assistant
DX: L02.612 Cutaneous abscess of left foot (principal); R09.81 Nasal congestion; E11.9 Type 2 diabetes mellitus without complications; Z20.822 Contact with and (suspected) exposure to COVID-19
CPT/HCPCS: 87637; 87651; 99283; A9270

== ENCOUNTER 2024-07-10 08:05 | Emergency (ER) | payer MEDICARE, SELFPAY ==
--- NOTE | ~2024-07-10 | XR_ITS ---
EXAMINATION: XR shoulder LT min 2V DATE: 07/10/2024 09:19 INDICATION: Left shoulder pain. TECHNIQUE: 3 views of left shoulder were obtained. COMPARISON: None. FINDINGS: Alignment is normal. No fracture. There is mild osteoarthritis of glenohumeral joint and ac romioclavicular joint. IMPRESSION: 1. Mild polyarticular osteoarthritis. Reviewed, dictated and finalized at location A. STRIPPER
--- NOTE | ~2024-07-10 | CT_ITS ---
EXAMINATION: CT brain wo con DATE: 07/10/2024 09:19 INDICATION: Weakness. TECHNIQUE: Computed tomography (CT) of the head was performed without intravenous contrast. The mA wa s adjusted according to patient size. Iterative reconstruction technique was employed. The dose-lengt h product was 529.67 mGy-cm. COMPARISON: None FINDINGS: There is no intracranial hemorrhage or abnormal intracranial mass lesion. There is an infar ct in the right thalamus. The ventricles are normal in size. There is mucosal thickening in the paran daria sinuses. There are likely changes of ocular lens replacement surgeries. There is hyperdense mate rial injected into the right ocular globe. The mastoid air cells are normal. IMPRESSION: 1. Age-indeterminate infarct in the right thalamus. Reviewed, dictated and finalized at location A. DEVELOPER
--- NOTE | ~2024-07-10 | XR_ITS ---
EXAMINATION: XR chest 1V portable DATE: 07/10/2024 09:19 INDICATION: Weakness. TECHNIQUE: A single frontal view of the chest was obtained. COMPARISON: Chest single view 10/29/2023 FINDINGS: There is no pneumonia, pleural effusion, or pneumothorax. The heart size is normal. IMPRESSION: 1. No acute cardiopulmonary disease. Reviewed, dictated and finalized at location A. SHANK COVERER
[2024-07-10 08:09] VITALS: BP 117/65; PULSE 89; RESP 18; TEMP 36.6; O2SAT 97
--- NOTE | 2024-07-10 08:34 | ECG_ITS ---
Test Date: 2024-07-10 08:42:51 Measurements Intervals [place] Rate: 83 P: 16 CO: 146 QRS: -21 QRSD: 90 T: 116 QT: 381 QTc: 450 Interpretive Statements SINUS RHYTHM BORDERLINE LEFT AXIS DEVIATION [QRS AXIS < -20] LOW QRS VOLTAGE IN PRECORDIAL LEADS [QRS DEFLECTION < 1.0 mV IN CHEST LEADS] LEFT VENTRICULAR HYPERTROPHY AND ST-T CHANGE [VOLTAGE CRITERIA PLUS ST/T ABNORMALITY] CONSIDER HYPERTROPHY VERSUS ISCHEMIA IN LATERAL LEADS ABNORMAL ECG Electronically Signed On 07-11-2024 08:50:28 WHALE FISHERMAN by Say Maravilla M.D.
--- NOTE | 2024-07-10 08:36 | ED_ITS ---
HPI - Weakness General Chief complaint: Weakness Stated complaint: left side numb Time Seen by Provider: 07/10/24 08:07 Source: patient Mode of arrival: ambulatory Limitations: no limitations History of Present Illness HPI Narrative: patient is a 48-year-old female with left shoulder pain with some shooting pains down the left upper extremity as well as some left lower extremity weakness. The left shoulder pain started yesterday and the left lower extremity weakness started this morning when she woke up with the symptoms at 4:30 a.m.. Patient is over the window in time for tPA if it was needed. Patient has chronic multiple medical problems. patient gets seizures if she gets too cold. MD Complaint: focal weakness and difficulty walking Onset (ago): day(s) (2) Duration: constant Location: LUE ( Pain of the shoulder) and LLE ( weakness of the left lower extremity) Migration: none Severity: moderate Severity scale (1-10): 4 Quality: tingling and numbness Relieving factors: none Exacerbating factors: none Context: history of similar ( patient has bursitis recurrent) Associated symptoms: denies other symptoms Related Data Home Medications Medication Instructions Recorded Confirmed atorvastatin 80 mg tablet 80 mg PO DAILY 07/26/23 01/02/24 bumetanide 1 mg tablet See Rx Instructions .Route .COMPLEX 07/26/23 01/02/24 celecoxib 200 mg capsule 200 mg PO BID 07/26/23 01/02/24 dapagliflozin propanediol 10 mg 10 mg PO DAILY 07/26/23 01/02/24 tablet (Farxiga) insulin detemir U-100 100 unit/mL 46 unit subcut DAILY 07/26/23 01/02/24 subcutaneous solution (Levemir U-100 Insulin) insulin lispro 100 unit/mL See Rx Instructions .Route .COMPLEX 07/26/23 01/02/24 subcutaneous solution (Humalog U-100 Insulin) metoprolol succinate 25 mg 25 mg PO DAILY 07/26/23 01/02/24 tablet,extended release 24 hr aspirin 81 mg PO DAILY 10/29/23 01/02/24 ezetimibe 10 mg tablet 10 mg PO DAILY 10/29/23 01/02/24 gabapentin 400 mg capsule See Rx Instructions .Route .COMPLEX 10/29/23 01/02/24 Allergies Allergy/AdvReac Type Severity Reaction Status Date / Time cephalexin [From Keflex] Allergy Unknown Unknown Verified 07/10/24 08:19 codeine Allergy Unknown Verified 07/10/24 08:19 erythromycin base Allergy Unknown Verified 07/10/24 08:19 Review of Systems Review of Systems: All systems reviewed & are unremarkable except as noted in HPI and below Constitutional: Constitutional: Reports no additional constitutional complaints Eyes: Eyes: Reports no additional eye complaints ENT: Reports system reviewed and no additional complaints, except as documented Cardiovascular: Cardiovascular: Reports no additional cardiovascular complaints Respiratory: Respiratory: Reports no additional respiratory complaints Gastrointestinal: Gastrointestinal: Reports no additional gastrointestinal complaints Genitourinary: Genitourinary: Reports no additional female genitourinary complaints Musculoskeletal: Musculoskeletal: Reports no additional musculoskeletal complaints Integumentary/Breasts: Skin/Breast: Reports system reviewed and no additional complaints, except as docu Neurologic: Reports system reviewed and no additional complaints, except as documented Psychiatric: Psychiatric: Reports no additional psychiatric complaints Endocrine: Endocrine: Reports no additional endocrine complaints Hematologic/Lymphatic: Hematologic/Lymphatic: Reports no additional hematologic/lymphatic complaints Allergic/Immunologic: Allergic/Immunologic: Reports no additional allergic/immunologic complaints PMFSH Past Medical History Medical History Diabetes mellitus Exam Const: General: healthy appearing Nutritional Appearance: well nourished Orientation/consciousness: patient oriented x3 Limitations: no limitations HENMT: Head: normal to inspection Ears: external ears normal Face/Nose/Sinus: Normal external nose present Eyes: Conjunctivae: conjunctivae normal Pupils: Equal, round and reactive pupils present EOM: EOMs intact bilaterally Neck: Neck: normal visual inspection Chest: Chest palpation & inspection: normal inspection of the chest Resp: Effort & Inspection: normal respiratory effort and not labored Auscultation: clear to auscultation bilaterally and no crackles Cardio: Rate: regular rate Rhythm: regular rhythm Heart sounds: no murmurs GI: Inspection: non-distended GI Palp: Yes Soft to palpation and No Tenderness to palpation present (GI) Auscultation: normal bowel sounds : General: Yes bladder normal to palpation Back/Spine/Pelvis: Back: no CVA tenderness Skin: General skin exam: normal color Rashes: no rashes Wounds: no wounds Neuro: General: patient oriented x3, moves all extremities, no meningeal signs, no focal motor deficits and CN's II-XI intact bilaterally Cranial nerves: Yes Nystagmus not present Speech: normal speech Gait exam (Neuro): gait abnormal ( slow walking gait) Other: fast exam was negative, NIH score is 0, [place] coma Score is 15 Extrem: General: normal to inspection, no clubbing, cyanosis or edema and no pedal edema Other: tender left shoulder ; left upper extremity has 2+ radial pulse patient has slightly cooler left and right upper extremity which is chronic for the patient and she has bilateral carpal tunnel syndrome positive on exam which is a chronic complaint for this patient Psych: Mental Status: mental status grossly normal Affect: normal affect Attitude: cooperative Course Vital Signs Vital signs: Vital Signs Temperature 36.6 C 07/10/24 08:09 Pulse Rate 89 07/10/24 08:09 Respiratory Rate 18 07/10/24 08:09 Blood Pressure 117/65 07/10/24 08:09 Pulse Oximetry 97 07/10/24 08:09 Oxygen Delivery Room Air 07/10/24 08:09 Temperature 36.6 C 07/10/24 08:09 Pulse Rate 79 07/10/24 08:56 Respiratory Rate 16 07/10/24 08:56 Blood Pressure 135/65 07/10/24 08:56 Pulse Oximetry 96 07/10/24 08:56 Oxygen Delivery Room Air 07/10/24 08:56 MDM - Weakness MDM Narrative Medical decision making narrative: patient is a 48-year-old female with multiple medical problems presenting with left shoulder pain and some paresthesias as well as left lower extremity weakness. She does not meet criteria for tPA if deemed necessary. We will do a cardiac/neurological workup at this time. Workup was negative for acute process except CT scan of the brain does show a right thalamic undetermined aged infarct. I asked patient to stay in the hospital here for neuro checks and monitoring but she has declined at this time. Further she still has the pain in the left shoulder which has been going on for a past few weeks and she has gotten 1 shot of steroid into the area with good results. I explained I am happy to give prednisone for 3-4 days orally and further we can give her a shot of Toradol at this time. She will sign out AMA at this time for not being admitted for the thalamic finding. Medical Records Attestation: I reviewed the patient's medical records. Lab Data Attestation: I reviewed the patient's lab results. 07/10/24 08:59 07/10/24 08:59 Labs: Lab Results 07/10/24 Range/Units 08:59 WBC 7.3 (4.8-10.8) K/mm3 RBC 3.90 L (4.20-5.40) M/mm3 Hgb 11.9 L (12.0-15.0) g/dL Hct 36.7 (35.0-49.0) % MCV 94.1 (78.0-102.0) fL MCH 30.5 (27.0-31.0) pg MCHC 32.4 (32-36) g/dL RDW 13.3 (11.6-14.4) % Plt Count 156 (150-420) K/mm3 MPV 11.8 (9.2-11.8) fl Immature Gran % (Auto) 0.3 H (0.0-0.0) % Neut % (Auto) 62.7 (50.0-70.0) % Lymph % (Auto) 24.0 (18.0-42.0) % Atkinson % (Auto) 9.5 (2.0-11.0) % Eos % (Auto) 2.5 (1.0-6.0) % Baso % (Auto) 1.0 (0.0-1.0) % Lymph # (Auto) 1.76 (1.10-4.50) K/mm3 Atkinson # (Auto) 0.70 (0.10-0.90) K/mm3 Eos # (Auto) 0.18 (0.02-0.50) K/mm3 Baso # (Auto) 0.07 (0.00-0.10) K/mm3 Abs Immat Gran (auto) 0.02 H (0.00-0.00) K/mm3 Absolute Neuts (auto) 4.60 (1.70-7.20) K/mm3 Absolute Nucleated RBC 0.00 (0.00-0.00) K/mm3 Nucleated RBC % 0.0 (0-0.0) % PT 9.8 (9.50-12.1) Seconds INR 0.9 APTT 24.1 (23.9-30.70) Sec Sodium 141 (136-145) mmol/L Potassium 4.3 (3.5-5.1) mmol/L Chloride 104 (98-108) mmol/L Carbon Dioxide 30 (21-32) mmol/L Anion Gap 7 (4-12) mmol/L BUN 28 H (7-18) mg/dL Creatinine 1.32 H (0.55-1.02) mg/dL Estim Creat Clear Calc 58 ml/min Estimated GFR 43 L (59 - ) Glucose 104 H (70-99) mg/dL Calculated Osmolality 297 H (285-295) mOsm/kg Calcium 9.0 (8.5-10.1) mg/dL Total Bilirubin 0.4 (0.00-1.00) mg/dL AST 17 (15-37) U/L ALT 20 (14-59) U/L Alkaline Phosphatase 200 H (46-116) U/L Troponin I 14.9 (0.00-60.4) ng/L NT-Pro-B Natriuret Pep 630 H (0-125) pg/mL Total Protein 6.5 (6.4-8.2) g/dL Albumin 2.9 L (3.4-5.0) g/dL Imaging Data Attestation: I personally reviewed and interpreted this imaging study as follows: Radiologist's impression: CT scan of the head was showing IMPRESSION: 1. Age-indeterminate infarct in the right thalamus. ECG Data EKG #1: Attestation: I personally reviewed and interpreted this ECG as follows: ECG completion date: 07/10/24 ECG completion time: 09:53 EKG Interpretation: normal rate, sinus rhythm, no ectopy, non-specific ST changes, normal QRS, normal QT and left axis Discharge Plan Discharge Clinical Impression: CVA (cerebrovascular accident) Qualifiers: CVA mechanism: stenosis Precerebral and cerebral artery: middle cerebral artery Laterality of affected vessel: right Qualified Code(s): I63.511 - Cerebral infarction due to unspecified occlusion or stenosis of right middle cerebral artery Acute shoulder bursitis Qualifiers: Laterality: left Qualified Code(s): M75.52 - Bursitis of left shoulder Patient Disposition: Left Against Medical Advice Condition: Stable Instructions: Shoulder Bursitis (ED), Ischemic Stroke (DC) Additional Instructions: Please follow-up with the primary doctor in the next week. I suggest further stroke workup with the primary doctor to include an echocardiogram and carotid ultrasound study. Please come back to the emergency room for any worse neurological symptoms. I suggest aspirin taken daily. further discuss your left upper extremity complaints with the primary doctor. Prescriptions: No Action gabapentin 400 mg capsule See Rx Instructions .ROUTE .COMPLEX Rx Instructions: Take 1 capsule in the morning Take 1 capsule in the afternoon Take 3 capsules at bedtime ezetimibe 10 mg tablet 10 mg PO DAILY aspirin 81 mg PO DAILY celecoxib 200 mg Capsule 200 mg PO BID atorvastatin 80 mg Tablet 80 mg PO DAILY bumetanide 1 mg Tablet See Rx Instructions .ROUTE .COMPLEX Rx Instructions: Take 2 tabs in mornings and 1 every evening metoprolol succinate 25 mg Tablet Extended Release 24 Hr 25 mg PO DAILY insulin lispro [Humalog U-100 Insulin] 100 unit/mL Solution See Rx Instructions .ROUTE .COMPLEX Rx Instructions: 8 units + SSI TID c meals Levemir U-100 Insulin 100 unit/mL Solution 46 unit SUBCUT DAILY dapagliflozin propanediol [Farxiga] 10 mg Tablet 10 mg PO DAILY promethazine 12.5 mg tablet 12.5 mg PO Q8H PRN (Reason: nausea and vomiting) Qty: 10 0RF Rx Instructions: 1-2 tabs per dose clindamycin HCl 300 mg capsule 300 mg PO Q6H 10 Days Qty: 40 0RF Follow-up/Referrals: UNKNOWN,DOCTOR [Non-Staff] - Time of Disposition: 10:32
[2024-07-10 08:56] VITALS: BP 135/65; PULSE 79; RESP 16; O2SAT 96
[2024-07-10 09:05] LABS: Basophils Absolute Auto 0.07 K/mm3 (0.00-0.10); Eosinophils Absolute Auto 0.18 K/mm3 (0.02-0.50); Eosinophils Percent Auto 2.5 % (1.0-6.0); Hematocrit 36.7 % (35.0-49.0); Hemoglobin 11.9 g/dL (12.0-15.0); Immature Granulocyte Absolute 0.02 K/mm3 (0.00-0.00); Immature Granulocyte Percent A 0.3 % (0.0-0.0); Lymphocytes Absolute Auto 1.76 K/mm3 (1.10-4.50); Mean Corpuscular HGB Conc 32.4 g/dL (32-36); Mean Corpuscular Hemoglobin 30.5 pg (27.0-31.0); Mean Corpuscular Volume 94.1 fL (78.0-102.0); Mean Platelet Volume 11.8 fl (9.2-11.8); Monocytes Percent Auto 9.5 % (2.0-11.0); Neutrophils Percent Auto 62.7 % (50.0-70.0); Platelet Count Result 156 K/mm3 (150-420); Red Cell Distribution Width 13.3 % (11.6-14.4); White Blood Count 7.3 K/mm3 (4.8-10.8)
[2024-07-10 09:18] LABS: INR 0.9; Partial Thromboplastin Time 24.1 Sec (23.9-30.70); Prothrombin Time 9.8 Seconds (9.50-12.1)
[2024-07-10 09:26] LABS: Alanine Aminotransferase 20 U/L (14-59); Albumin Level 2.9 g/dL (3.4-5.0); Alkaline Phosphatase 200 U/L (46-116); Anion Gap 7 mmol/L (4-12); Aspartate Amino Transferase 17 U/L (15-37); Bilirubin,Total 0.4 mg/dL (0.00-1.00); Blood Urea Nitrogen 28 mg/dL (7-18); Carbon Dioxide 30 mmol/L (21-32); Chloride 104 mmol/L (98-108); Estimated CRCL calculation 58 ml/min; Estimated Glomerular Filt Rate 43; Glucose 104 mg/dL (70-99); NT Pro B Type Natriuretic Pept 630 pg/mL (0-125); Osmolality Calculated 297 mOsm/kg (285-295); Potassium 4.3 mmol/L (3.5-5.1); Sodium 141 mmol/L (136-145); Total Protein 6.5 g/dL (6.4-8.2); Troponin I 14.9 ng/L (0.00-60.4)
[2024-07-10] MEDS: KETOROLAC (*BKC) 60 MG/2 ML VIAL IM (10:31)
[2024-07-10] MEDS: predniSONE 20 MG TABLET 40 MG PO (10:32)
[2024-07-10 10:40] VITALS: BP 129/62; PULSE 68; RESP 16; TEMP 36.6; O2SAT 98
== END 2024-07-10 10:40 | disposition left against medical advice (07) ==
PROVIDERS: Emergency Provider Emergency Medicine; PCP Physician Assistant
DX: I63.511 Cerebral infarction due to unspecified occlusion or stenosis of right middle cerebral artery (principal); M75.52 Bursitis of left shoulder; E11.9 Type 2 diabetes mellitus without complications
CPT/HCPCS: 36415; 70450; 71045; 73030; 80053; 83880; 84484; 85025; 85610; 85730; 93005; 96372; 99284; J1885; J7512

== ENCOUNTER 2024-08-12 08:17 | Outpatient (CLI) | payer MEDICARE, MEDICAID, SELFPAY ==
--- NOTE | ~2024-08-12 | US_ITS ---
Limited Abdominal Sonogram: Real-time sonographic imaging of the right upper quadrant was performed. Clinical History: Liver lesion, abnormal LFTs Findings: The liver appears normal with no evidence of mass lesion or bile duct dilatation. Main por camlila vein demonstrates normal direction of flow. The gallbladder is partially distended, and demonstra peewee a small echogenic stone near the gallbladder neck. No definite gallbladder wall thickening. The c ommon bile duct measures 3 mm. The visualized pancreas, aorta, and IVC are unremarkable. Impression: Cholelithiasis. No hepatic lesion identified. Reviewed, dictated and finalized at location . CLE INSPECTOR Impression: Cholelithiasis. No hepatic lesion identified.
== END 2024-08-12 08:18 | disposition home or self-care (01) ==
LOC: CHSIMG 08:19
PROVIDERS: PCP Physician Assistant; Visit Provider Registered Nurse
DX: K76.9 Liver disease, unspecified (principal); R06.83 Snoring; K80.20 Calculus of gallbladder without cholecystitis without obstruction
CPT/HCPCS: 76705

== ENCOUNTER 2024-08-20 12:49 | Emergency (ER) | payer MEDICARE, MEDICAID, SELFPAY ==
[2024-08-20 12:50] VITALS: O2SAT 100
[2024-08-20 12:57] LABS: Glucose Point of Care 102 mg/dl (65-105)
[2024-08-20 13:04] VITALS: BP 130/73; PULSE 84; RESP 16; TEMP 35.7; O2SAT 99
[2024-08-20 13:40] LABS: Glucose Point of Care 101 mg/dl (65-105)
--- NOTE | 2024-08-20 13:57 | ED.AMS ---
HPI - Altered Mental Status General Chief Complaint: Altered Mental Status Stated Complaint: hypoglycemia Source: patient, family and EMS Mode of arrival: EMS Limitations: no limitations History of Present Illness HPI narrative: this is a 48-year-old female with a history of diabetes that took excess of her insulin today causing her blood sugars to drop and called EMS her is with her at her bedside, prior to arrival EMS gave her dextrose and are current blood sugar is 102. Patient is alert oriented she is a little bit sleepy but answers all questions appropriately no fever chills no nausea vomiting no abdominal pain no chest pain no shortness of breath. Severity: mild Related Data Home Medications ?Medication ?Instructions ?Recorded ?Confirmed ?Last Taken ?Type atorvastatin 80 mg tablet 80 mg PO DAILY 07/26/23 01/02/24 08/28/23 History bumetanide 1 mg tablet See Rx Instructions .Route .COMPLEX 07/26/23 01/02/24 08/28/23 History celecoxib 200 mg capsule 200 mg PO BID 07/26/23 01/02/24 08/28/23 History dapagliflozin propanediol 10 mg 10 mg PO DAILY 07/26/23 01/02/24 08/28/23 History tablet (Farxiga) insulin detemir U-100 100 unit/mL 46 unit subcut DAILY 07/26/23 01/02/24 08/28/23 History subcutaneous solution (Levemir U-100 Insulin) insulin lispro 100 unit/mL See Rx Instructions .Route .COMPLEX 07/26/23 01/02/24 08/28/23 History subcutaneous solution (Humalog U-100 Insulin) metoprolol succinate 25 mg 25 mg PO DAILY 07/26/23 01/02/24 08/28/23 History tablet,extended release 24 hr aspirin 81 mg PO DAILY 10/29/23 01/02/24 Unknown History ezetimibe 10 mg tablet 10 mg PO DAILY 10/29/23 01/02/24 Unknown History gabapentin 400 mg capsule See Rx Instructions .Route .COMPLEX 10/29/23 01/02/24 Unknown History Allergies Allergy/AdvReac Type Severity Reaction Status Date / Time cephalexin (From Keflex) Allergy Unknown Unknown Verified 07/10/24 08:19 codeine Allergy Unknown Verified 07/10/24 08:19 erythromycin base Allergy Unknown Verified 07/10/24 08:19 Review of Systems Review of Systems: All systems reviewed & are unremarkable except as noted in HPI and below PMFSH Past Medical History Medical History Diabetes mellitus Exam Const: General: healthy appearing and no acute distress Nutritional Appearance: obese Orientation/consciousness: patient oriented x3 Limitations: no limitations Eyes: Conjunctivae: conjunctivae normal Pupils: Equal, round and reactive pupils present EOM: EOMs intact bilaterally Direct Ophthalmoscopy: no photophobia Neck: Neck: normal visual inspection Chest: Chest palpation & inspection: normal inspection of the chest Resp: Effort & Inspection: normal respiratory effort Auscultation: clear to auscultation bilaterally Cardio: Rate: regular rate Rhythm: regular rhythm GI: GI Palp: Yes Soft to palpation Auscultation: normal bowel sounds : General: Yes bladder normal to palpation Skin: General skin exam: normal color Rashes: no rashes Wounds: no wounds Neuro: General: patient oriented x3 Cranial nerves: Yes Nystagmus not present Speech: normal speech Psych: Mental Status: mental status grossly normal Course Course Emergency Course: Patient had a blood sugar of 102 and after [id number] had another blood sugar that was 101 patient was seen at [facility] yesterday and had a full workup and was diagnosed with constipation. Otherwise blood pressure is stable at 1 30/73 respiratory rate of 16 patient is afebrile with an O2 sat 99%. Vital Signs Vital signs: Vital Signs Pulse Oximetry 100 08/20/24 12:50 Temperature 35.7 C L 08/20/24 13:04 Pulse Rate 84 08/20/24 13:04 Respiratory Rate 16 08/20/24 13:04 Blood Pressure 130/73 08/20/24 13:04 Pulse Oximetry 99 08/20/24 13:04 Oxygen Delivery Room Air 08/20/24 13:04 MDM - Altered Mental Status Lab Data Labs: Lab Results 08/20/24 08/20/24 Range/Units 12:55 13:37 POC Capillary Glucose 102 101 (65-105) mg/dl Critical Care Time Critical Care Time Critical Care Time: No Discharge Plan Discharge Clinical Impression: Hypoglycemia Diabetes mellitus Qualifiers: Diabetes mellitus type: type 2 Diabetes mellitus [facility] insulin use: with [facility] use Diabetes mellitus complication status: with other specified complication Qualified Code(s): E11.69 - Type 2 diabetes mellitus with other specified complication Constipation Qualifiers: Constipation type: unspecified constipation type Qualified Code(s): K59.00 - Constipation, unspecified Patient Disposition: Home, Self-Care Condition: Stable Instructions: Antibiotic Form, Constipation (ED), Hypoglycemia in a Person with Diabetes (ED) Additional Instructions: take medication as prescribed and follow up with primary within 1 week for further evaluation treatment. Patient Language: Polish Prescriptions: New docusate sodium [Colace] 100 mg capsule 100 mg PO BID PRN (Reason: constipation) Qty: 14 0RF No Action gabapentin 400 mg capsule See Rx Instructions .ROUTE .COMPLEX Rx Instructions: Take 1 capsule in the morning Take 1 capsule in the afternoon Take 3 capsules at bedtime ezetimibe 10 mg tablet 10 mg PO DAILY aspirin 81 mg PO DAILY celecoxib 200 mg Capsule 200 mg PO BID atorvastatin 80 mg Tablet 80 mg PO DAILY bumetanide 1 mg Tablet See Rx Instructions .ROUTE .COMPLEX Rx Instructions: Take 2 tabs in mornings and 1 every evening metoprolol succinate 25 mg Tablet Extended Release 24 Hr 25 mg PO DAILY insulin lispro [Humalog U-100 Insulin] 100 unit/mL Solution See Rx Instructions .ROUTE .COMPLEX Rx Instructions: 8 units + SSI TID c meals Levemir U-100 Insulin 100 unit/mL Solution 46 unit SUBCUT DAILY dapagliflozin propanediol [Farxiga] 10 mg Tablet 10 mg PO DAILY promethazine 12.5 mg tablet 12.5 mg PO Q8H PRN (Reason: nausea and vomiting) Qty: 10 0RF Rx Instructions: 1-2 tabs per dose clindamycin HCl 300 mg capsule 300 mg PO Q6H 10 Days Qty: 40 0RF Follow-up/Referrals: Lance,MELLISSA Kent [Primary Care Provider] -
[2024-08-20 14:12] VITALS: BP 112/66; PULSE 66; RESP 20; TEMP 36.8; O2SAT 98
== END 2024-08-20 14:12 | disposition home or self-care (01) ==
PROVIDERS: Emergency Provider Emergency Medicine; PCP Physician Assistant
DX: E11.649 Type 2 diabetes mellitus with hypoglycemia without coma (principal); K59.00 Constipation, unspecified; Z79.4 Long term (current) use of insulin
CPT/HCPCS: 82948; 99283

== ENCOUNTER 2024-09-10 11:59 | Emergency (ER) | payer MEDICARE, MEDICAID, SELFPAY ==
--- NOTE | ~2024-09-10 | XR_ITS ---
EXAMINATION: XR ribs LT 2V w CXR 2V DATE: 09/10/2024 12:29 INDICATION: Left posterior rib pain. Fall. TECHNIQUE: Frontal and lateral views of the chest and 2 views of the left ribs were obtained. COMPARISON: Chest view 07/10/2024 FINDINGS: CHEST TWO VIEWS: There is no pneumonia, pleural effusion, or pneumothorax. The heart size is normal. LEFT RIBS: There is a fracture left seventh rib. IMPRESSION: 1. Fracture of left seventh rib. Reviewed, dictated and finalized at location A. CTOR OF PRIMARY
[2024-09-10 12:00] VITALS: BP 107/70; PULSE 100; RESP 18; TEMP 36.8; O2SAT 97
--- OUTSIDE RECORDS SUMMARY | 2024-09-10 12:02 | XMS_ITS | Patient Health Summary ---
Author Organization [facility] Address [address] [place] [address] Care Team Providers Care Branch Lending Manager Name Role Phone Clement Pinto APRN-WORKERS COMPENSATION ADMINISTRATOR Primary Care Provider [phone] Note [address] [facility],non-owned Affiliates and Associated Physician Practices is amultiple site organization consisting of ambulatory clinics and hospital sitesin [place], [place], [place] and [place]. This disclosure is being madepursuant to the Care Everywhere program and may not contain all information available regarding this patient. Last updated 18.[facility] Allergies * Codeine(Itching) -Medium Criticality * Erythromycin(Vomiting) * Cephalexin(Urticaria) -High Criticality Medications * Be aware that medications may not be up to date on this document. Alwaysverify current medications with the patient. * insulin detemir (LEVEMIR) vial Inject 46 (forty six) Units subcutaneously as directed * insulin aspart (NOVOLOG) vial Inject subcutaneously as directed * atorvastatin (Lipitor) 80 MG tablet Take 1 (one) tablet by mouth at bedtime * cetirizine (ZyrTEC) 10 MG tablet 1 (one) tablet once daily * rivaroxaban (Xarelto) 20 MG tablet(Started 12/23/2022) * metoprolol succinate XL 24hr (Toprol XL) 25 MG tablet Take 1 (one) tablet by mouth once daily * cyclobenzaprine (Flexeril) 5 MG tablet Take 1 (one) tablet by mouth 3 times daily as needed * acetaminophen CR (Tylenol Arthritis Pain) 650 MG tablet Take 2 (two) tablets by mouth every 8 hours as needed for Pain * senna (Senokot) 8.6 MG tablet Take by mouth once daily * polyethylene glycol 3350 (Miralax) 17 GM/SCOOP powder Take 17 (seventeen) g by mouth once daily * pregabalin (Lyrica) 100 MG capsule Take 1 (one) capsule by mouth 3 times daily * dapagliflozin propanediol (Farxiga) 10 MG tablet Take 1 (one) tablet by mouth every morning * miglitol (Glyset) 50 MG tablet(Started 04/20/2023) TAKE 1 TABLET BY MOUTH 2 TIMES DAILY AT THE start of each main meal (with THE first bite) * celecoxib (CeleBREX) 200 MG capsule Take 1 (one) capsule by mouth once daily * HYDROcodone-acetaminophen ([place]) 5-325 MG tablet(Started 05/13/2023) Take 1 (one) tablet by mouth every 6 hours as needed for Pain Active Problems Problem Noted Date Diagnosed Date Subclavian artery stenosis, left 02/12/2017 Rapid heart rate 10/18/2015 Pure hypercholesterolemia 10/18/2015 Tobacco use disorder 10/18/2015 Precordial pain 10/18/2015 Social History Tobacco Use Types Packs/Day Years Used Date Smoking Tobacco: Every Day Cigarettes 1 30 Smokeless Tobacco: Never Tobacco Cessation:Ready to Q uit: Not Asked; Counseling Given: Not Answered Alcohol Use Standard Drinks/Week Comments Not Currently 0 (1 standard drink = 0.6 oz pur e alcohol) AUDIT-C Answer Date Recorded Q1: How often do you have a drink containing alcohol? Never 05/13/2023 Q2: How many drinks containi ng alcohol do you have on a typical day when you are drinking? Patient does not drink Q3: How often do you have si x or more drinks on one occasion? Never 05/13/2023 Sex and Gender Information Value Date Recorded Sex Assigned at Not on file Gender Identity Not on file Sexual Orientation Not on file Last Filed Vital Signs Vital Sign Reading Time Taken Comments Blood Pressure 125/75 05/13/2023 2:23 PM CDT Pulse 85 05/13/2023 2:23 PM CDT Temperature 36.4 ??C (97.6 ??F) 05/13/2023 2:23 PM CD T Respiratory Rate 17 05/13/2023 2:23 PM CDT Oxygen Saturation 96% 05/13/2023 2:23 PM CDT Inhaled Oxygen Concentration - - Weight 95.7 kg (211 lb) 05/13/2023 8:52 AM CDT Height 165.1 cm (5' 5 ) 05/13/2023 8:52 AM CDT Body Mass Index 35.11 05/13/2023 8:52 AM CDT Procedures * CARDIAC RHYTHM STRIP ORDER(Performed 05/14/2023) * XR FOOT RIGHT 3VW OR MORE(Performed 05/13/2023) Performed for Post-operative state * GLUCOSE - POINT OF CARE(Performed 05/13/2023) * FL LAURA SURGERY(Performed 05/13/2023) Performed for Pain * GROSS EXAM PATHOLOGY (STL)(Performed 05/13/2023) Performed for Diagnosis unknown * OK REMV FOOT FOREIGN BODY,DEEP(Performed 05/13/2023) * CBC W AUTO DIFFERENTIAL(Performed 05/13/2023) Performed for Pain * MAGNESIUM BLOOD(Performed 05/13/2023) Performed for Pain * BASIC METABOLIC PANEL (CALCIUM TOTAL)(Performed 05/13/2023) Performed for Pain * EKG 12-LEAD(Performed 05/13/2023) Performed for Pain * GLUCOSE - POINT OF CARE(Performed 05/13/2023) * ECHOCARDIOGRAM(Performed 08/22/2021) * US VENOUS DUPLEX BILAT LTD(Performed 02/11/2017) * CT ANGIO CHEST ABDOMEN(Performed 02/11/2017) * ECHO COMPLETE(Performed 02/06/2017) * ECHOCARDIOGRAM 2D WITH DOPPLER(Performed 02/05/2017) * ECHOCARDIOGRAM 2D WITH DOPPLER(Performed 11/22/2015) Performed for Rapid heart rate, Precordial pain * STRESS TEST WALKING(Performed 11/22/2015) Performed for Precordial pain, Shortness of breath * HOLTER MONITOR(Performed 10/23/2015) Performed for Rapid heart rate * LAB MISC TEST(Performed 09/14/2015) Results * CARDIAC RHYTHM STRIP ORDER (05/14/2023 9:38 PM CDT) Narrative 05/14/2023 9:38 PM CDT Ordered by an unspecified provider. Scanned Document CARDIAC SERVICES ORD ERABLES * XR FOOT 3+ VW RIGHT (05/13/2023 1:22 PM CDT) Anatomical Region Laterality Modality Ankle / Foot Radiographic Marya ging 05/13/2023 3:06 PM CDT Narrative 05/13/2023 3:07 PM CDT PROCEDURE(s): XR FOOT RIGHT 3VW OR MORE; DATE AND TIME OF EXAM(s): 05/13/2023 1:22 PM; LOCATION: [facility] INDICATION(s): Z98.890: Other specified postprocedural states COMPARISON(s): None available. Findings/Impression: Soft tissue thickening and gas is present which is presumably postoperative. Small metallic pin associated with the lateral sesamoid bone. There is a separate smaller pin noted just posteriorly, separate from the bone. No fracture or dislocation is identified. Bones are mildly demineralized. Joint spaces are maintained. No periarticular erosions. Small plantar calcaneal spur. Vascular calcifications are present. > Interpreting Provider: Alfonso Thompson DO on 05/13/2023 3:07 PM Procedure Note Alfonso Thompson DO - 05/13/2023 PROCEDURE(s): XR FOOT RIGHT 3VW OR MORE; DATE AND TIME OF EXAM(s): 05/13/2023 1:22 PM; LOCATION: [facility] INDICATION(s): Z98.890: Other specified postprocedural states COMPARISON(s): None available. Findings/Impression: Soft tissue thickening and gas is present which is presumably postoperative. Small metallic pin associated with the lateral sesamoid bone. There is a separate smaller pin noted just posteriorly, separatefrom the bone. No fracture or dislocation is identified. Bones are mildlydemineralized. Joint spaces are maintained. No periarticular erosions. Small plantar calcaneal spur. Vascular calcifications are present. > Interpreting Provider: Alfonso Thompson DO on 05/13/2023 3:07 PM Hayes Wall DPM DIAGNOSTIC IMAGING O RDERABLES * (ABNORMAL) GLUCOSE - POINT OF CARE (05/13/2023 12:53 PM CDT) Only the most recent of2 resultswithin the time period is included. Glucose WB/POC 244(H) 70 - 106 mg/dL 05/13/2023 1:04 PM CDT [facility] Specimen Type Cap Fingerstick 2022 1:04 PM CDT [facility] Blood BLOOD SPECIMEN / Unknown 05/13/2023 12:53 PM CDT 05/13/2023 1:04 PM CDT Hayesklaus Santacruzser DPM LAB - POINT OF CARE ORDERABLES Performing Organization Address [facility]/ZIP Co de Phone Number [facility] [address] [place] [id number] * FL LAURA SURGERY (05/13/2023 12:35 PM CDT) Narrative [facility] - 05/13/2023 1:01 PM CDT For details of this study, please see the providers note. Hayes Santacruzser DPM FLUOROSCOPY ORDERABL ES Performing Organization Address [facility]/[place] Co de Phone Number [facility] [address] [place] [address] * GROSS EXAM PATHOLOGY (STL) (05/13/2023 12:30 PM CDT) Case Report Surgical Pathology Report ? Case: [id number] ? Authorizing Provider: ??[facility], Hayes, DPM ? Collected: ? 05/13/2023 12:30 PM ? Ordering Location: ? [facility] ? Received: ?05/14/2023 01:49 PM ? Pathologist: ? Perla Alarcon MD ? Specimen: ?Foreign Object, Foreign object from right foot ? 05/15/2023 3:42 PM CDT [facility] Final Diagnosis Hardware/forei gn object, right foot, removal: - Consistent with removed hardware (gross examination only). SD 05/15/2023 3:42 PM CDT [facility] Gross Description Received in formalin labeled with the patient's name and ? foreign object from right foot is a 1.3 x 0.4 cm, irregular-shap ed silver-colored metal. The specimen is submitted for gross examination only. 05/15/2023 3:42 PM CDT [facility] Embedded Images 05/15/2023 3:42 PM CDT [facility] Pathology/Cytolo gy MISCELLANEOUS SAMPLES / Unknown 05/13/2023 12:30 PM CDT 05/14/2023 1:49 PM CDT Hayes WALTERSM [facility] - PATHOLOGY/CYTO LOGY ORDERABLES Performing Organization Address City/State/[place] Co de Phone Number [facility] [address] [place], [place] [id number] * (ABNORMAL) CBC W AUTO DIFFERENTIAL (05/13/2023 10:32 AM CDT) WBC 6.8 4.4 - 10.7 x10E9/L 05/13/2023 10:38 AM CDT [facility] WBC Corrected 05/13/2023 10:38 AM CDT [facility] RBC 3.58(L) 3.80 - 5.20 x10E12/L 05/13/2023 10:38 AM CDT [facility] Hemoglobin 10.5(L) 12.0 - 15.6 gm/dL 05/13/2023 10:38 AM CDT [facility] Hematocrit 34.2(L) 35.9 - 45.5 % 05/13/2023 10:38 AM CDT [facility] MCV 95.5 80.7 - 98.3 fl 05/13/2023 10:38 AM CDT [facility] MCH 29.3 26.7 - 34.0 pg 05/13/2023 10:38 AM CDT [facility] MCHC 30.7(L) 30.8 - 35.9 gm/dL 05/13/2023 10:38 AM CDT [facility] Platelet Count 139(L) 153 - 416 x10E9/L 05/13/2023 10:38 [facility] RDW-CV 15.0(H) 12.1 - 14.9 % 05/13/2023 10:38 AM CDT [facility] MPV 12.3 9.4 - 12.9 fl 05/13/2023 10:38 AM [facility] Neutrophils % 67.1 44.0 - 73.0 % 05/13/2023 10:38 AM [facility] Lymphocytes % 19.6(L) 20.0 - 43.0 % 05/13/2023 10:38 AM [facility] Monocytes % 8.8 5.0 - 13.0 % 05/13/2023 10:38 AM [facility] Eosinophils % 3.1 0.0 - 6.0 % 05/13/2023 10:38 [facility] Basophils % 1.0 0.0 - 2.0 % 05/13/2023 10:38 AM [facility] Immature Granulocytes 0.4 0 - 1 % 05/13/2023 10:38 AM CDT [facility] Neutrophil Absolute 4.57 2.01 - 7.14 x10E9/L 05/13/2023 10:38 AM CDT [facility] Lymphocytes Absolute 1.34 1.07 - 3.94 x10E9/L 05/13/2023 10:38 AM CDT [facility] Monocytes Absolute 0.60 0.26 - 1.07 x10E9/L 05/13/2023 10:38 AM CDT [facility] Eosinophils Absolute 0.21 0 - 0.47 x10E9/L 05/13/2023 10:38 AM CDT [facility] Basophils Absolute 0.07 0 - 0.08 x10E9/L 05/13/2023 10:38 AM CDT [facility] Immature Granulocytes Absolute 0.03 0.00 - 0.06 x10E9/L 05/13/2023 10:38 AM T [facility] nRBC Auto 0 /100 WBC 05/13/2023 10:38 AM [facility] Blood BLOOD SPECIMEN / Unknown Venipuncture / Unknown 05/13/2023 10:32 AM CDT 05/13/2023 10:35 AM CDT Princess Hoover PA-C LAB - HEMATOLOGY ORDERABLES [facility] [address] [place] [address] * (ABNORMAL) BASIC METABOLIC PANEL (CALCIUM TOTAL) (05/13/2023 10:22 AM CDT) Glucose 261(H) 70 - 105 mg/dL 05/13/2023 10:43 AM [facility] Sodium 142 136 - 145 mmol/L 05/13/2023 10:43 AM [facility] Potassium 4.6 3.5 - 5.1 mmol/L 05/13/2023 10:43 AM [facility] Chloride 108(H) 98 - 107 mmol/L 05/13/2023 10:43 AM [facility] CO2 27 22 - 29 mmol/L 05/13/2023 10:43 AM [facility] Calcium 8.9 8.4 - 10.4 mg/dL 05/13/2023 10:43 AM [facility] Anion Gap 7 6 - 16 mmol/L 05/13/2023 10:43 AM [facility] BUN 44(H) 5.3 - 18.7 mg/dL 05/13/2023 10:43 AM [facility] Creatinine 1.24(H) 0.57 - 1.11 mg/dL 05/13/2023 10:43 AM [facility] eGFR by CKD-EPI 54(L) >=90 mL/min/1.7 3 m2 05/13/2023 10:43 AM [facility] Blood BLOOD SPECIMEN / Unknown Venipuncture / Unknown 05/13/2023 10:22 AM CDT 05/13/2023 10:25 AM CDT Princess Hoover PA-C LAB - CHEMISTRY ORDERABLES Performing Organization Address [facility]/[place] Co de Phone Number [facility] [address] [address] * MAGNESIUM BLOOD (05/13/2023 10:22 AM CDT) Magnesium 2.6 1.6 - 2.6 mg/dL 05/13/2023 10:43 AM CDT [facility] Blood BLOOD SPECIMEN / Unknown Venipuncture / Unknown 05/13/2023 10:22 AM CDT 05/13/2023 10:25 AM CDT Princess Hoover PA-C LAB - CHEMISTRY ORDERABLES Performing Organization Address [facility] de Phone Number [facility] [address] [id number] * EKG 12-LEAD (05/13/2023 9:43 AM CDT) Ventricular Rate 88 BPM [facility] Atrial Rate 88 BPM [facility] P-R Interval 144 ms [facility] QRS Duration ms 84 ms [facility] Q-T Interval ms 376 ms [facility] QTC Calculation (Bezet) 454 ms [facility] Calculated P [place] 42 degrees [facility] Calculated R [place] -18 degrees [facility] Calculated T [place] 92 degrees [facility] Interpretation EKG Normal sinus rhythm Minimal voltage criteria for LVH, may be normal variant ( R in aVL ) Cannot rule out Anterior infarct , age undetermined Abnormal ECG No previous ECGs available Confirmed by MD FERNANDES ANDREA ([id number]) on 05/14/2023 9:08:44 AM [facility] 05/13/2023 9:43 AM CDT 05/14/2023 9:08 AM CDT Princess Hoover PA-C ECG ORDERABLES [facility] * ECHOCARDIOGRAM (08/22/2021) Arnoldo Gary MD SCANNING ONLY * CT ANGIO CHEST ABDOMEN (02/11/2017) Anatomical Region Laterality Modality Chest, Abdomen Other Provider Unknown CT ORDERABLES * US VENOUS DUPLEX BILAT LTD (02/11/2017) Anatomical Region Laterality Modality Lower Extremity, Upper Extremity Other Provider Unknown VASCULAR LAB ORDERAB LES * ECHO COMPLETE (02/06/2017) Provider Unknown ECHO ORDERABLES * ECHOCARDIOGRAM 2D WITH DOPPLER (02/05/2017) Only the most recent of2 resultswithin the time period is included. Scanned Document ECHO ORDERABLES * STRESS TEST WALKING (11/22/2015 10:44 AM CDT) Narrative Gloria Dominguez RDMS - 11/22/2015 10:44 AM CDT Gloria Dominguez RDMS ? 11/22/2015 10:44 AM See scan Chong Leonardo MD CARDIAC SERVICES ORD ERABLES * HOLTER MONITOR (10/23/2015 10:13 AM CDT) Narrative Gifty James CNMT - 10/23/2015 10:13 AM CDT Gifty James CNMT ? 10/23/2015 10:13 AM See scan. Chong Leonardo MD CARDIAC SERVICES ORD ERABLES * LAB MISC TEST (09/14/2015) Other (qualifier value) BLOOD SPECIMEN / Unknown Provider Unknown LAB SEND OUT Care Teams Branch Lending Manager Relationship Specialty Start Date End Date Clement Pinto APRN-WORKERS COMPENSATION ADMINISTRATOR [address] [place] [id number] PCP - General Nurse Practitioner Family 05/13/23
--- OUTSIDE RECORDS SUMMARY | 2024-09-10 12:02 | XMS_ITS | Referral Summary ---
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) (Primary Dx); Polyneuropathy from Last 3 Months Allergies Active Allergy Reactions Criticality Noted Date Comments Cephalexin Other (See comments) Reaction: Unknown, , Codeine Other (See comments) Reaction: Unknown, , Erythromycin Medications gabapentin (NEURONTIN) 400 mg capsule See Instructions, 1 cap Oral in morning, 1 cap midday, and 3 cap @ HS, # 150 cap, 2 Refill(s), Pharmacy: [facility], 165.1, 10/03/20 13:50:00 POST SPLITTER, Height/Length Measured, cm, 65.1, 10/03/20 13:55:00 POST SPLITTER, Weight Dosing, kg 1 Active empagliflozin (JARDIANCE) 25 mg tabletIndicatio ns:type 2 diabetes mellitus 25 mg daily Active sacubitriL-vals corinne (ENTRESTO) 24-26 mg tabletIndicatio ns:chronic heart failure Take 0.5 tablets by mouth 2 (two) times a day Active pantoprazole DR (PROTONIX) 40 mg EC tablet Take 40 mg by mouth daily Active aspirin 81 mg enteric coated tablet Take 81 mg by mouth daily Active clopidogreL (PLAVIX) 75 mg tablet Take 75 mg by mouth daily Active cyclobenzaprine (FLEXERIL) 5 mg tablet Take 1 tablet (5 mg total) by mouth 3 (three) times a day as needed for muscle spasms Active melatonin 5 mg tablet,disinteg rating Take by mouth Active atorvastatin (LIPITOR) 80 mg tablet Take 1 tablet (80 mg total) by mouth nightly Active apixaban (ELIQUIS) 5 mg tablet 5 mg 2 (two) times a day Active busPIRone (BUSPAR) 10 mg tabletIndicatio ns:Generalized Anxiety Disorder Take 10 mg by mouth 2 (two) times a day Active furosemide (LASIX) 40 mg tablet Take 40 mg by mouth 2 (two) times a day Active cetirizine 10 mg capsule Take by mouth Activ e rivaroxaban (XARELTO) 20 mg tablet Take 1 tablet (20 mg total) by mouth Active senna (SENOKOT) 8.6 mg tablet Take 1 tablet by mouth daily Active polyethylene glycol (MIRALAX) 17 gram/dose bulk powder Take 17 g by mouth daily Active pregabalin (LYRICA) 25 mg capsule Take 1 capsule (25 mg total) by mouth 2 (two) times a day Active dapagliflozin propanediol (FARXIGA) 10 mg tablet 1 tablet (10 mg total) daily Active miglitoL (GLYSET) 25 mg tabletIndicatio ns:type 2 diabetes mellitus Take 2 tablets (50 mg total) by mouth 2 (two) times a day Active celecoxib (CeleBREX) 200 mg capsule Take 1 capsule (200 mg total) by mouth 2 (two) times a day Active metoprolol XL (TOPROL-XL) 25 mg extended release tablet Take 1 tablet (25 mg total) by mouth daily 30 tablet 3 Active rivaroxaban (Xarelto) 20 mg tablet Take by mouth 3 Active cetirizine (ZyrTEC) 10 mg tablet Take 1 tablet (10 mg total) by mouth 2 Active trolamine salicylate (Myoflex) 10 % cream Apply topically 2 Active tirzepatide (MOUNJARO SUBQ) Inject 1 mg under the skin once a week Active tirzepatide (Mounjaro) 2.5 mg/0.5 mL pen injector Inject 0.5 mL (2.5 mg total) under the skin once a week 3 Active senna-docusate (PERICOLACE) 8.6-50 mg Take 1 tablet by mouth 2 (two) times a day 1 Active prednisoLONE acetate (PRED FORTE) 1 % ophthalmic suspension 1 drop 2 (two) times a day 1 Active peg 400-hypromellos e-glycerin (ARTIFICAL TEARS) 1-0.2-0.2 % ophthalmic solution 2 drops every 4 (four) hours as needed 1 Active nitroglycerin (NITROSTAT) 0.[address] 1 tablet (0.4 mg total) under the tongue every 5 minutes as needed 1 Active methyl salicylate-ment hol 15-10 % cream Apply topically every 6 (six) hours as needed 1 Active lisinopriL (PRINIVIL,ZESTR IL) 2.5 mg tablet daily 2 Active insulin lispro (HumaLOG, ADMELOG) 100 unit/mL pen for injection Inject 46 Units under the skin once Active insulin lispro (HumaLOG, ADMELOG) 100 unit/mL pen for injection Inject 3 Units under the skin 3 (three) times a day with meals 1 Active insulin lispro (HumaLOG) 100 unit/mL vial for injection Inject under the skin 1 Active insulin glargine (TOUJEO) 300 unit/mL (1.5 mL) pen for injection Inject 50 Units under the skin family day carer before breakfast 3 Active insulin glargine (BASAGLAR) 100 unit/mL (3 mL) pen for injection See Instructions, 32 units daily, # 15 mL, 3 Refill(s), Pharmacy: [facility], 165.1, 10/03/20 13:50:00 POST SPLITTER, Height/Length Measured, cm, 65.1, 10/03/20 13:55:00 POST SPLITTER, Weight Dosing, kg 1 Active insulin detemir (Levemir FlexPen) 100 unit/mL (3 mL) pen for injection See Instructions, Subcutaneous 46 units every am, and 10 units at HS orders to titrate to FBS 130 or less max dose 60 units, # 30 mL, 4 Refill(s), Pharmacy: [facility], 165.1, 08/08/22 11:09:00 POST SPLITTER, Height/Length Measured, cm, 93.4,... 2 Active insulin detemir (LEVEMIR) 100 unit/mL vial for injection Inject 46 Units under the skin as directed 2 Active insulin aspart (NovoLOG) 100 unit/mL (3 mL) pen for injection Inject under the skin 1 Active HYDROcodone-pankaj taminophen (NORCO) 5-325 mg per tablet Take 1 tablet by mouth 5 Active HYDROcodone-pankaj taminophen (NORCO) 5-325 mg per tablet Take 1 tablet by mouth every 6 (six) hours as needed 0 Active HYDROcodone-pankaj taminophen (NORCO) 10-325 mg per tablet 0 4 Active fluconazole (DIFLUCAN) 150 mg tablet TAKE 1 TABLET 1 TIME ONLY. 4 Active ezetimibe (ZETIA) 10 mg tablet Take 1 tablet (10 mg total) by mouth daily Active eszopiclone (LUNESTA) 1 mg tablet Take by mouth 3 Active ergocalciferol (VITAMIN D) 50,000 unit capsule Take 1 capsule (50,000 Units total) by mouth once a week 1 Active doxepin (SINEquan) 10 mg capsule Take by mouth 3 Active dicloxacillin (DYNAPEN) 500 mg capsule Take 1 capsule (500 mg total) by mouth 4 (four) times a day Active clindamycin (CLEOCIN) 150 mg capsule Take 3 capsules (450 mg total) by mouth 3 (three) times a day 4 Active carvediloL (COREG) 3.125 mg tablet every 12 hours Activ e carBAMazepine (TEGretol) 200 mg tablet Take 1 tablet (200 mg total) by mouth 1 Active calcium carbonate (OS-PING) 1,250 mg (500 mg elemental) tablet Take 500 mg by mouth 1 Active bumetanide (BUMEX) 0.5 mg tablet daily Active bumetanide (BUMEX) 1 mg tablet 2 Active Regranex 0.01 % gel APPLY TO WOUND ONCE A DAY 5 Active blood-glucose sensor (FreeStyle Carol 3 Sensor) device Every 14 days 3 Active ascorbic acid 500 mg tablet,chewable Take 1 tablet/chew tab (500 mg total) by mouth 2 (two) times a day 1 Active acetaminophen ER (TYLENOL) 650 mg 8 hr tablet Take 2 tablets (1,300 mg total) by mouth every 8 (eight) hours as needed Active acetaminophen (TYLENOL) 325 mg tablet Take 2 tablets (650 mg total) by mouth every 6 (six) hours as needed 1 Active Active Problems Problem Noted Date Diagnosed Date Acute kidney injury 09/22/2021 Tobacco use 09/22/2021 Fall 09/22/2021 Acute cystitis with hematuria 09/22/2021 Coronary artery disease invo lving [place] coronary artery of [place] heart without angina pectoris 09/22/2021 Chronic pain 09/22/2021 Chronic systolic CHF (congestive heart failure) ([facility]) 09/22/2021 Type 1 diabetes mellitus with hyperglycemia 09/10 Hx pulmonary embolism 09/22/2021 Bilateral Heel ulcers 09/22/2021 Ischemic cardiomyopathy 09/22/2021 LOLIS (acute kidney injury) 09/22/2021 Closed nondisplaced intertro chanteric fracture of left femur 03/26/2021 Ovarian retention cyst 06/07/2014 Mass of ovary 04/11/2014 Overview (11/13/2016): Ovarian mass Gastroesophageal reflux disease 04/11/2014 Overview (11/13/2016): GERD - Gastro-esophageal reflux disease Social History Tobacco Use Types Packs/Day Years Used Date Smoking Tobacco: Every Day Smokeless Tobacco: Never Comments:Smoking History Pac ks/day: 1 Packs Alcohol Use Standard Drinks/Week Comments No 0 (1 standard drink = 0.6 oz pur e alcohol) Social Connection and Isolat ion Panel [NHANES] Answer Date Recorded In a typical week, how many times do you talk on the phone with family, friends, or neighbors? More than three times a week 09/24/2021 How often do you get togethe r with friends or relatives? More than three times a week 09/24/2021 How often do you attend chur ch or advent services? Never 09/24/2021 Do you belong to any clubs o r organizations such as gnosticist groups, unions, fraternal or athletic groups, or school groups? No 09/24/2021 How often do you attend meet ings of the clubs or organizations you belong to? Never 09/24/2021 Are you , , di vorced, , never , or living with a partner? Living with partner 09/24/2021 AUDIT-C Answer Date Recorded Q1: How often do you have a drink containing alc ohol? Never 09/22/2021 Average Number of Drinks Not on file 022 Frequency of Binge Drinking Not on file 09/10 Overall Financial Resource Strain (CARDIA) Answe r Date Recorded How hard is it for you to pa y for the very basics like food, housing, medical care, and heating? Not hard at all 09/24/2021 Hunger Vital Sign Answer Date Recorded Within the past 12 months, y ou worried that your food would run out before you got the money to buy more. Never true 09/24/19 22 Within the past 12 months, t he food you bought just didn't last and you didn't have money to get more. Never true 09/24/2021 PRAPARE - Transportation Answer Date Re corded In the past 12 months, has l ack of transportation kept you from medical appointments or from getting medications? No 09/10 In the past 12 months, has l ack of transportation kept you from meetings, work, or from getting things needed for daily living? No 09/24/2021 Personal Safety Answer Date Recorded Have you ever been in or are you currently in a harmful physical or emotional relationship or is someone making you feel afraid or unsafe? Denies 05/23/2023 Comments No Sex and Gender Information Value Date Recorded Sex Assigned at Not on file Legal Sex Female 11:01 PM POST SPLITTER Gender Identity Not on file Sexual Orientation Not on file Last Filed Vital Signs Vital Sign Reading Time Taken Comments Blood Pressure 100/60 08/26/2024 9:32 AM POST SPLITTER Pulse 93 08/26/2024 9:32 AM POST SPLITTER Temperature 36.2 ??C (97.2 ??F) 05/23/2023 11:54 PM C DT Respiratory Rate 16 05/24/2023 1:45 AM CDT Oxygen Saturation 95% 05/24/2023 1:45 AM CDT Inhaled Oxygen Concentration - - Weight 98.4 kg (217 lb) 08/26/2024 9:32 AM POST SPLITTER Height 165.1 cm (5' 5 ) 08/26/2024 9:32 AM POST SPLITTER Body Mass Index 36.11 08/26/2024 9:32 AM POST SPLITTER Plan of Treatment Not on file Procedures Procedure Name Priority Date/Time Associated Diagnosis Comments EGFR STAT 05/24/2023 12:04 AM CDT THYROID FUNCTION CASCADE STAT 09/22/2021 11:57 AM POST SPLITTER HEMOGLOBIN A1C STAT 09/22/2021 9:31 AM POST SPLITTER SERUM LIPID PANEL Routine 06/26/2014 8:1 1 AM POST SPLITTER COLONOSCOPY REPORT 06/07/2014 from Last 3 Months or Most Recently Relevant to Health Maintenance Results * eGFR (05/24/2023 12:04 AM CDT) eGFR 62 mL/min/1. 73 m2 Comment: Interpretive Data Reference Interval Normal ?>/= 90 mL/min/1.73m2 Mildly decreased* ? 60 - 89 mL/min/1.73m2 Mildly to moderately decreased ?45 - 59 mL/min/1.73m2 Moderately to severely decreased ??30 - 44 mL/min/1.73m2 Severely decreased ?15 - 29 mL/min/1.73m2 Kidney Failure ?< 15 ??mL/min/1.73m2 *Relative to young adult level Estimated glomerular filtration rate is determined by the 2020 CKD-EPI equation recommended by the National Kidney Foundation (A Unifying Approach to GFR Estimation: Recommendations of the NKF-ASK Task Force on Reassessing the Inclusion of Race in Diagnosing Kidney Disease, JASN 202). The CKD-EPI equation should not be used for patients with unstable renal function and has not been validated in children and those over 70. Current interpretive data was last reviewed 2021. Blood 05/24/2023 12:0 4 AM CDT 05/24/2023 12:09 AM CDT us Bob Roblero MD LAB BLOOD ORDERABLES Final Res ult Performing Organization Address [facility] Co de Phone Number [phone] [place] [address] * TSH reflex to free T4 (09/22/2021 11:57 AM POST SPLITTER) TSH 2.85 0.30 - 4.20 mcIUnit/mL [facility] Blood 09/22/2021 11:5 7 AM POST SPLITTER 09/22/2021 12:23 PM POST SPLITTER us Chad Mayo Jr., MD LAB BLOOD ORDERABLES Final Result Performing Organization Address [facility] de Phone Number [address] [address] * (ABNORMAL) Hemoglobin A1c (09/22/2021 9:31 AM POST SPLITTER) Hgb A1C 11.7(H) 4.0 - 5.6 % [facility] Estimated Average Glucose 289 mg/dL [facility] Comment: The ADA recommends reporting an estimated Average Glucose (eAG) with all Hemoglobin A1c results using the equation derived from a study of 507 normal and diabetic adults. ??Minority populations were underrepresented and children were not included. ?? (Diabetes Care 31:0687-4859, 2008). ??The eAG is not equivalent to a fasting glucose. Blood 09/22/2021 9:31 AM POST SPLITTER 09/22/2021 10:38 AM POST SPLITTER us Chad Mayo Jr., MD LAB BLOOD ORDERABLES Final Result Performing Organization Address City/State/ZIP Co ny Phone Number [facility] [address] [facility] [place] [address] * (ABNORMAL) Serum lipid panel (06/26/2014 8:11 AM POST SPLITTER) Cholesterol 328(H) 40 - 199 mg/dl HISTORICAL RESULTS Comment: Interpretive Data The National Cholesterol Education Program (NCEP) has set the following guidelines (reference values) for total cholesterol: Desirable: ?Less than 200 mg/dL Borderline High: ??200 - 239 mg/dL High: ? Greater than or equal to 240 mg/dL. Current interpretive data was last revised on 2012. Triglycerides 197(H) 0 - 150 mg/dl HISTORICAL RESULTS Comment: Interpretive Data The National Cholesterol Education Program (NCEP) has set the following guidelines (reference values) for triglycerides: Normal: ?Less than 150 mg/dL Borderline High: ?? 150 - 199 mg/dL High: ?200 - 499 mg/dL Very High: ? Greater than or equal to 500 mg/dL. Current interpretive data was last revised on 2012. HDL 56 40 - 60 mg/dl HISTORICAL RESULTS LDL 233(H) 30 - 99 mg/dl HISTORICAL RESULTS Comment: Interpretive Data Optimal: ?Less than 100 mg/dL Near Optimal: ? 100 - 129 mg/dL Borderline high: ??130 - 159 mg/dL High: ? Greater than 160 mg/dL In addition, if the Triglyceride value is greater than 400 mg/dL, the calculation may be inaccurate. Current interpretive data was last revised on 2012. Serum 06/26/2014 8:11 AM POST SPLITTER Historical Provider LAB BLOOD ORDERABLES Salma pfeiffer Result HISTORICAL RESULTS * COLONOSCOPY REPORT (06/07/2014) Anatomical Region Laterality Modality Other Narrative 06/07/2014 Ordered by an unspecified provider. Historical Provider GI PROCEDURE ORDERABLES F inal Result from Last 3 Months or Most Recently Relevant to Health Maintenance Insurance MEDICARE SOLUTIONS [facility] [place] [facility] [employer] Advance Directives For more information, please contact: [phone] * Full Code (Latest Code Status on File) Date Activated Date Inactivated Comments 09/22/2021 7:24 PM 09/24/2021 8:45 PM Care Teams Death Claim Examiner Relationship Specialty Start Date End Date Donte Lucas PA [address] [place] [address] PCP - General Physician Body Maker 08/26/24
--- OUTSIDE RECORDS SUMMARY | 2024-09-10 12:02 | XMS_ITS | Encounter Summary ---
Author Organization [facility] Healthcare Address [address] [place] [address] Care Team Providers Care Rail Doweling Machine Operator Name Role Phone Arnoldo Gary MD Primary Care Provider [phone] Miscellaneous, Not In File Primary Care Provider Unavailable Donte Lucas Primary Care Provider Encounter Details Date Type Department Care Team (Late st Contact Info) Description 09/26/2021 Telephone [facility] Case Management [address] [place] [address] Leydi Bush, RN Social History Tobacco Use Types Packs/Day Years [...] often do you attend chur ch or zoroastrianism services? Never 09/24/2021 Do you belong to any clubs o r organizations such as worship groups, unions, fraternal or athletic groups, or [...] things needed for daily living? No 09/24/2021 Comments No Sex and Gender Information Value Date Recorded Sex Assigned at Not on file Legal Sex Female 11:01 PM HAND TRIMMER Gender Identity Not on file Sexual Orientation Not on file documented as of this encounter Plan of Treatment Not on file documented as of this encounter Visit Diagnoses Not on filedocumented in this encounter Care Teams Rail Doweling Machine Operator Relationship Specialty Start Date End Date Arnoldo Gary MD [address] [place] [address] PCP - General 12/22/17 05/23/23 Miscellaneous, Not In File PCP - General 05/24/23 Donte Lucas PA [address] [place] [id number] PCP - General Physician Swing Type Lathe Operator 08/26/24 documented as of this encounter
--- OUTSIDE RECORDS SUMMARY | 2024-09-10 12:02 | XMS_ITS | Encounter Summary ---
Author Organization [facility] Address [address] [place] [address] Care Team Providers Care Beer Coil Cleaner Name Role Phone Arnoldo Gary MD Primary Care Provider [phone] Encounter Details Date Type Department Care Team (Late st Contact Info) Description 01/25/2002 Inpatient Historical [facility] INPATIENT IN BED Palak Shah MD [address] [place] [address] Say Patricio MD [address] [facility] [address] [place] [address] POISONING-ANTITUSSI VES (Primary Dx) Social History Tobacco Use Types Packs/Day Years Used Date Smoking Tobacco: Never Assessed Comments Unknown Sex and Gender Information Value Date Recorded Sex Assigned at Not on file Legal Sex Female 3:51 AM LIQUID CHLORINE OPERATOR Gender Identity Not on file Sexual Orientation Not on file documented as of this encounter Plan of Treatment Not on file documented as of this encounter Visit Diagnoses Diagnosis Poisoning by antitussives(975.4)- Primary Poisoning by antitussives documented in this encounter Additional Health Concerns Infection Onset Date Last Indicated Resolved Time MRSA Comment:hx MRSA documented per 12/22/17 infectious disease screening form - Cierra Becker RN 12/24/2017 05/09/2024 documented as of this encounter Care Teams Beer Coil Cleaner Relationship Specialty Start Date End Date Arnoldo Gary MD [address] [place] [address] PCP - General Internal Medicine 03/27/21 documented as of this encounter
--- OUTSIDE RECORDS SUMMARY | 2024-09-10 12:02 | XMS_ITS | Continuity of Care Document ---
Author Organization [facility][1] Address [address] [place] [address] Phone Care Team Providers Care Forensic Technician Name Role Phone Unavailable Unavailable Unavailable Allergies, Adverse Reactions, Alerts Substance Reaction Status Criticality CEPHALEXIN MONOHYDRATE Active No In formation erythromycin base Active No Informa tion codeine Active No Information Medications Medication Instructions Dosage Effective Dates (start - stop) Status Comments celecoxib 200 mg capsule TAKE 1 CAPSULE BY MOUTH ONCE DAILY NEEDED - Active pioglitazone 15 mg tablet take 1 tablet by oral route every day 15 MG - Active pregabalin 100 mg capsule take 1 capsule by oral route every day 100 MG - Active hydrocodone 5 mg-acetaminophen 325 mg tablet TAKE 2 TABLETS BY MOUTH EVERY 8 HOURS NEEDED FOR PAIN - Active atorvastatin 80 mg tablet TAKE 1 Tablet BY MOUTH ONCE DAILY - Active miglitol 100 mg tablet take 1 tablet by oral route 2 times every day at the start (with the first bite) of each main meal 100 MG - Active motorized scooter MISCELL MISCELL please issue one size approp wheelchair or scooter for pt mobility and completion of ADL - Active cetirizine 10 mg tablet TAKE 1 TABLET BY MOUTH ONCE DAILY - Active FreeStyle Carol 2 [place] please issue one reader to monitor constant blood glucose levels - Active FreeStyle Carol 2 Sensor kit please issue one sensor kit every 7-14 days to monitor blood glucose levels constantly. - Active bumetanide 1 mg tablet take 1 tablet by mouth every morning and 1 tablet by mouth every evening - Active doxepin 10 mg capsule take 1 capsule by oral route at bedtime - Active Levemir FlexPen 100 unit/mL (3 mL) solution subcutaneous insulin pen inject 48 units by subcutaneous route every morning and 10 units at bedtime. - Active lisinopril 2.5 mg tablet take 1 tablet by oral route every day 2.5 MG - Active Xarelto 20 mg tablet take 1 tablet by or al route every day with the evening meal 20 MG - Active buspirone 10 mg tablet take 1 tablet by oral route 2 times every day 10 MG - Active metoprolol succinate ER 25 mg tablet,extended release 24 hr take 1/2 (half) tablet by oral route every day - Active Problems Condition Type Effective Dates (start - stop) Clini lee Status Comments No Known Problems Procedures Procedure Date OFFICE/OUTPATIENT VISIT, EST OFFICE/OUTPATIENT VISIT, EST OFFICE/OUTPATIENT VISIT, EST URINALYSIS NONAUTO W/O SCOPE OFFICE/OUTPATIENT VISIT, EST OFFICE/OUTPATIENT VISIT, EST Advance Directives Directive Yes / No Effective Date File Name No Information Encounters Encounter Description Practice Location Reason(s) For Visit Diagnoses Date Provider Providers Copied on Encounter [facility], [address] [place] [address], [address], tel:[phone] *[facility] No Information 4 No Information [facility], [address] [place] [address], [address], tel:[phone] *[facility] No Information 3 No Information [facility], [address] [place] [address], [address], tel:[phone] *[facility] Body mass index [BMI] 32.0-32.9, adult 3 No Information OFFICE/OUTPA TIENT VISIT, EST [facility], [address] [place] [address], [address], tel:[phone] *[facility] Diabetes (chief complaint)R efills (chief complaint) Chronic kidney disease, unspecified CKD stageType 2 diabetes mellitus with hyperglycemiaPa in in unspecified joint 3 No Information [facility], [address] [place] [address], [address], [place] tel:[phone] *[facility] No Information 3 No Information [facility], [address] [place] [address], [address], [place] tel:[phone] *[facility] Abnormal complete blood count 3 No Information OFFICE/OUTPA TIENT VISIT, [facility], [address] [place] [address], [address], [place] tel:[phone] *[facility] Surgery clearance (chief complaint) Body mass index [BMI] 29.0-29.9, adultType 2 diabetes mellitus with hyperglycemiaPo lyneuropathyChr onic systolic (congestive) heart failureChronic kidney disease, unspecified CKD stageAt risk for falling 3 No Information [facility], [address] [place] [address], [address], [place] tel:[phone] *[facility] No Information 3 No Information [facility], [address] [place] [address], [address], [place] tel:[phone] *[facility] Polyneuropathy 3 No Information OFFICE/OUTPA TIENT VISIT, [facility], [address] [place] [address], [address], [place] tel:[phone] *[facility] ear pain bilateral (chief complaint)c hronic conditions (chief complaint)e luke (chief complaint)s ore under left breast (chief complaint) Body mass index [BMI] 31.0-31.9, adultCellulitis of breastAcute serous otitis media, bilateralChroni c systolic (congestive) heart failurePolyneur opathyChronic pain of left knee 3 No Information [facility], [address] [place] [address], [address], [place] tel:[phone] *[facility] No Information 3 No Information OFFICE/OUTPA TIENT VISIT, [facility], [address] [place] [address], [address], tel:[phone] *[facility] pain (chief complaint)U TI (chief complaint)c hronic conditions (chief complaint) Pain in unspecified jointChronic kidney disease, unspecified CKD stageType 2 diabetes mellitus with hyperglycemiaBo dy mass index [BMI] 45.0-49.9, adultUTIChronic systolic (congestive) heart failureCardiomy opathy, unspecifiedAt risk for falling 3 No Information [facility], [address] [place] [address], [address], tel:[phone] *[facility] No Information 3 No Information OFFICE/OUTPA TIENT VISIT, [facility], [address] [place] [address], [address], tel:[phone] *[facility] New Patient (chief complaint)c hronic conditions (chief complaint) Body mass index [BMI] 45.0-49.9, adultChronic pain of left kneeOther chronic painType 2 diabetes mellitus with hyperglycemiaPo lyneuropathySte nosis of coronary artery stent, sequelaSmall vessel diseaseChronic kidney disease, unspecified CKD stageHx of blood clotsHx of fracture of legPrimary insomniaMixed hyperlipidemiaC hronic constipationPos t-menopausalGen eralized edema 3 No Information Family History Family Member Type Diagnosis Age At Onset No Information Payers Payer name Insurance type Covered libertarian ID Authoriza tion(s) No Information Social History Type Description Quantity Date Captured Comments Sex Female Smoking Status No Information Gender Identity Female Chief Complaint And Reason For Visit No Information Reason For Referral Reason For Referral No Information Plan Of Treatment Date Type Action Status Goal Suicide Risk Ass essment (suicide/homicide risk). Due on due Goal Screening/Behavi oral Counseling for Alcohol Misuse. Due on due Goal Unhealthy drug u se screening. Due on due Goal Hepatitis C scre ening. Due on due Goal PAP. Due on due Goal Tobacco Counseli ng. Due on due Goal Td vaccine. Due on due Goal PPD (TST). Due on due Goal Influenza vaccin e. Due on due Goal HPV. Due on due Goal [place] Questionn aire. Due on due Goal Tdap. Due on due Goal Blood Pressure C heck. Due on due Goal Lipid Panel. Due on due Goal Annual Exam. Due on due Goal Depression scree matilde. Due on due Goal Mammogram. Due on due Goal Mammogram. Due on due Goal Tdap. Due on due Goal Blood Pressure C heck. Due on due Goal PPD (TST). Due on due Goal Annual Exam. Due on due Goal Hepatitis C scre ening. Due on due Goal Tobacco Counseli ng. Due on due Goal Unhealthy drug u se screening. Due on due Goal Screening/Behavi oral Counseling for Alcohol Misuse. Due on due Goal Td vaccine. Due on due Goal [place] Questionn aire. Due on due Goal Depression scree matilde. Due on due Goal Influenza vaccin e. Due on due Goal HPV. Due on due Goal PAP. Due on due Goal Suicide Risk Ass essment (suicide/homicide risk). Due on due Goal Lipid Panel. Due on due Goal Dietary manageme nt education, guidance, and counseling completed Goal Lipid Panel. Due on due Goal Depression scree matilde. Due on due Goal Hepatitis C scre ening. Due on due Goal PPD (TST). Due on due Goal Annual Exam. Due on due Goal HPV. Due on due Goal Screening/Behavi oral Counseling for Alcohol Misuse. Due on due Goal PAP. Due on due Goal Blood Pressure C heck. Due on due Goal [place] Questionn aire. Due on due Goal Tobacco Counseli ng. Due on due Goal Unhealthy drug u se screening. Due on due Goal Suicide Risk Ass essment (suicide/homicide risk). Due on due Goal Tdap. Due on due Goal Mammogram. Due on due Goal Influenza vaccin e. Due on due Goal Td vaccine. Due on due Goal Depression scree matilde. Due on due Goal Td vaccine. Due on due Goal Mammogram. Due on due Goal PAP. Due on due Goal Influenza vaccin e. Due on due Goal [place] Questionn aire. Due on due Goal Tdap. Due on due Goal HPV. Due on due Goal Lipid Panel. Due on due Goal Blood Pressure C heck. Due on due Goal Tobacco Counseli ng. Due on due Goal Hepatitis C scre ening. Due on due Goal Suicide Risk Ass essment (suicide/homicide risk). Due on due Goal Unhealthy drug u se screening. Due on due Goal Annual Exam. Due on due Goal Screening/Behavi oral Counseling for Alcohol Misuse. Due on due Goal PPD (TST). Due on due Goal Dietary manageme nt education, guidance, and counseling completed Goal Td vaccine. Due on due Goal [place] Questionn aire. Due on due Goal Tdap. Due on due Goal PAP. Due on due Goal Tobacco Counseli ng. Due on due Goal Suicide Risk Ass essment (suicide/homicide risk). Due on due Goal Influenza vaccin e. Due on due Goal Mammogram. Due on due Goal Depression scree matilde. Due on due Goal Blood Pressure C heck. Due on due Goal Hepatitis C scre ening. Due on due Goal Lipid Panel. Due on due Goal Unhealthy drug u se screening. Due on due Goal Screening/Behavi oral Counseling for Alcohol Misuse. Due on due Goal HPV. Due on due Goal PPD (TST). Due on due Goal Annual Exam. Due on due Goal Suicide Risk Ass essment (suicide/homicide risk). Due on due Goal Mammogram. Due on due Goal Hepatitis C scre ening. Due on due Goal [place] Questionn aire. Due on due Goal Screening/Behavi oral Counseling for Alcohol Misuse. Due on due Goal Depression scree matilde. Due on due Goal Tdap. Due on due Goal Unhealthy drug u se screening. Due on due Goal HPV. Due on due Goal PAP. Due on due Goal Blood Pressure C heck. Due on due Goal Td vaccine. Due on due Goal Annual Exam. Due on due Goal Lipid Panel. Due on due Goal Influenza vaccin e. Due on due Goal Tobacco Counseli ng. Due on due Goal PPD (TST). Due on due Goal Dietary manageme nt education, guidance, and counseling completed Goal Tdap. Due on due Goal PPD (TST). Due on due Goal Screening/Behavi oral Counseling for Alcohol Misuse. Due on due Goal Unhealthy drug u se screening. Due on due Goal Lipid Panel. Due on due Goal Depression scree matilde. Due on due Goal Blood Pressure C heck. Due on due Goal HPV. Due on due Goal Suicide Risk Ass essment (suicide/homicide risk). Due on due Goal Td vaccine. Due on due Goal Tobacco Counseli ng. Due on due Goal Annual Exam. Due on due Goal Influenza vaccin e. Due on due Goal PAP. Due on due Goal Mammogram. Due on due Goal [place] Questionn aire. Due on due Goal Hepatitis C scre ening. Due on due Goal Dietary manageme nt education, guidance, and counseling completed Goal HPV. Due on due Goal Tobacco Counseli ng. Due on due Goal PAP. Due on due Goal Depression scree matilde. Due on due Goal Tdap. Due on due Goal PPD (TST). Due on due Goal Suicide Risk Ass essment (suicide/homicide risk). Due on due Goal Td vaccine. Due on due Goal Mammogram. Due on due Goal Screening/Behavi oral Counseling for Alcohol Misuse. Due on due Goal Annual Exam. Due on due Goal Blood Pressure C heck. Due on due Goal [place] Questionn aire. Due on due Goal Hepatitis C scre ening. Due on due Goal Unhealthy drug u se screening. Due on due Goal Lipid Panel. Due on due Goal Influenza vaccin e. Due on due Goal Blood Pressure C heck. Due on due Goal Unhealthy drug u se screening. Due on due Goal Screening/Behavi oral Counseling for Alcohol Misuse. Due on due Goal Lipid Panel. Due on 023 due Goal Depression scree matilde. Due on due Goal Influenza vaccin e. Due on due Goal Td vaccine. Due on due Goal Suicide Risk Ass essment (suicide/homicide risk). Due on due Goal [place] Questionn aire. Due on due Goal Hepatitis C scre ening. Due on due Goal Tdap. Due on due Goal PAP. Due on due Goal HPV. Due on due Goal Tobacco Counseli ng. Due on due Goal PPD (TST). Due on 3 due Goal Mammogram. Due on 3 due Goal Annual Exam. Due on 023 due Goal Dietary manageme nt education, guidance, and counseling completed Referral Referred To: [address], [id number] Ordered: Referrals: Oncology. [facility]. Evaluate and treat ordered Referral Ordered: tina -Nephrology (related to Type 2 diabetes mellitus with hyperglycemia) ordered Referral Referred To: tina Ordered: Referrals: Nephrology. [facility]. Location: [facility]. Evaluate and treat ordered Referral Referred To: manda prince Ordered: Referrals: Endocrinology, Diabetes and Metabolism. [facility]. Evaluate and treat ordered Referral Ordered: [facility] -Neurology (related to Polyneuropathy) ordered Referral Referred To: [facility] Ordered: Referrals: Neurology. [facility]. Evaluate and treat ordered Referral Referred To: [address], [id number] Ordered: Referrals: Orthopedic Surgery. [facility]. Location: [facility]. Evaluate and treat ordered Future Order: Radiol ogy Order US ABDOMEN COMPLETE ([id number]), Ordered on: Ordered Future Order: Lab Order CBC w/AU TO DIFF ([id number]), Ordered on: Ordered Future Order: Lab Order COMPREHE NSIVE METABOLIC PANEL ([id number]), Ordered on: Ordered Future Order: Lab Order GLYCOHEM OGLOBIN (A1c) ([id number]), Ordered on: Ordered Future Order: Lab Order Electroc ardiogram ([id number]), Ordered on: Ordered Future Order: Lab Order LIPID PA KAR ([id number]), Ordered on: Ordered Future Order: Lab Order THYROID STIMULATING HORMONE ([id number]), Ordered on: Ordered Future Order: Lab Order BNP (B-t ype Natriuretic Peptide) ([id number]), Sent on: Sent Future Order: Lab Order COMPREHE NSIVE METABOLIC PANEL ([id number]), Sent on: Sent Future Order: Lab Order CBC w/AU TO DIFF ([id number]), Sent on: Sent Future Order: Lab Order Electroc ardiogram ([id number]), Sent on: Sent Future Order: Radiol ogy Order CHEST 2 VW FRONT & LAT ([id number]), Sent on: Sent Future Order: Radiol ogy Order KNEE, LEFT, (1 OR 2 VIEWS) ([id number]), Ordered on: Ordered History Of Present Illness Encounter Date Complaint History Of Prese nt Illness Refills Patient here tod ay for med refills. Diabetes Risk factors inc lude age > 50 years. Risk factors excluded are depression, smoking and steroid use. Comorbid conditions include stroke. Surgery clearance Patient here t josué for medical clearance. ear pain bilateral edema chronic conditions sore under left breast UTI Associated sympt oms include fatigue. Pertinent negatives include abdominal pain, dysuria, frequency or retention. Additional information: Patient here today due to possible UTI. pain Patient having p ain in lower back, legs, feet and shoulders. chronic conditions 1) Chronic ki dney disease, unspecified CKD stage (Recurrent.) 2) Type 2 diabetes mellitus with hyperglycemia (Chronic.) Associated symptoms include fatigue. New Patient Patient here tod ay as a new patient. chronic conditions 1) Small vess el disease (Chronic.) 2) Chronic kidney disease, unspecified CKD stage (Chronic.) 3) Hx of blood clots (Chronic.) 4) Hx of fracture of leg (Chronic.) 5) Primary insomnia (Chronic.) 6) Mixed hyperlipidemia (Chronic.) 7) Chronic constipation (Chronic.) 8) Post-menopausal (Chronic.) 9) Generalized edema (Chronic.) Functional Status Date Functional Assessmen t No Information Instructions Date Instruction Additional Infor mation Dietary management e ducation, guidance, and counseling Related to Body mass index [BMI] 32.0-32.9, adult Dietary management e ducation, guidance, and counseling Related to Body mass index [BMI] 29.0-29.9, adult Dietary management e ducation, guidance, and counseling Related to Body mass index [BMI] 31.0-31.9, adult Dietary management e ducation, guidance, and counseling Related to Body mass index [BMI] 45.0-49.9, adult Dietary management e ducation, guidance, and counseling Related to Body mass index [BMI] 45.0-49.9, adult Assessments Type Assessment Date No Information Patient Care Teams Name Effective Dates (start - stop) Status Members No Information
--- OUTSIDE RECORDS SUMMARY | 2024-09-10 12:02 | XMS_ITS | Clinical Summary ---
Author Organization [facility] er Address [address] [place] [address] Care Team Providers Care Strap Buckler Name Role Phone Donte Lucas Primary Care Provider Allergies Active Allergy Reactions Criticality Noted Date Comments Cephalexin Other (See comments) Reaction: Unknown, , Codeine Other (See comments) Reaction: Unknown, , Erythromycin Medications gabapentin (NEURONTIN) 400 mg capsule See Instructions, 1 cap Oral in morning, 1 cap midday, and 3 cap @ HS, # 150 cap, 2 Refill(s), Pharmacy: [facility], 165.1, 10/03/20 13:50:00 SENIOR INTEGRATION DEVELOPER, Height/Length Measured, cm, 65.1, 10/03/20 13:55:00 SENIOR INTEGRATION DEVELOPER, Weight Dosing, kg 1 Active empagliflozin (JARDIANCE) [...] injection Inject 50 Units under the skin insurance adviser before breakfast 3 Active insulin glargine (BASAGLAR) 100 unit/mL (3 mL) pen for injection See Instructions, 32 units daily, # 15 mL, 3 Refill(s), Pharmacy: [facility], 165.1, 10/03/20 13:50:00 SENIOR INTEGRATION DEVELOPER, Height/Length Measured, cm, 65.1, 10/03/20 13:55:00 SENIOR INTEGRATION DEVELOPER, Weight Dosing, kg 1 Active insulin detemir (Levemir FlexPen) 100 unit/mL (3 mL) pen for injection See Instructions, Subcutaneous 46 units every am, and 10 units at HS orders to titrate to FBS 130 or less max dose 60 units, # 30 mL, 4 Refill(s), Pharmacy: [facility], 165.1, 08/08/22 11:09:00 SENIOR INTEGRATION DEVELOPER, Height/Length Measured, cm, 93.4,... 2 Active insulin [...] hematuria 09/22/2021 Coronary artery disease invo lving [place] coronary artery of [place] heart without angina pectoris 09/22/2021 Chronic pain 09/22/2021 Chronic systolic CHF (congestive heart failure) ([facility]) 09/22/2021 Type 1 diabetes mellitus with hyperglycemia 09/10 Hx pulmonary embolism 09/22/2021 Bilateral Heel ulcers 09/22/2021 Ischemic cardiomyopathy 09/22/2021 LOLIS (acute kidney injury) 09/22/2021 Closed nondisplaced intertro chanteric fracture of left femur 03/26/2021 Ovarian retention cyst 06/07/2014 Mass of ovary 04/11/2014 Overview (11/13/2016): Ovarian mass Gastroesophageal reflux disease 04/11/2014 Overview (11/13/2016): GERD - Gastro-esophageal reflux disease Encounters Date Type Department Care Team Description 08/26/2024 9:30 AM SENIOR INTEGRATION DEVELOPER Office Visit [facility] Neurology [address] [place] [phone] Ethel, Kaleb Adam MD Cerebrovascular accident (CVA) due to stenosis of small artery (HCC) (Primary Dx); Polyneuropathy from Last 3 Months Surgical History Surgery Date Site/Laterality Comments TUBAL LIGATION Bilateral tubal ligation TOTAL ABDOMINAL HYSTERECTOMY Hysterectomy, total FEMUR FRACTURE SURGERY Medical History Medical History Date Comments Diabetes mellitus (HCC) Diabetes mellitus; Comments: TRV 04/11/2014 - Femur fracture, left (HCC) Arthritis Asthma CHF (congestive heart failur e) ([facility]) (HCC) Bladder problem Seizures (HCC) Hypotension Family History Medical History Relation Name Comments Diabetes Mother Diabetes mellit us; Heart disease Mother Heart disease; Relation Name Status Comments Mother Social History Tobacco Use Types Packs/Day Years [...] often do you attend chur ch or mu-ism services? Never 09/24/2021 Do you belong to any clubs o r organizations such as christian groups, unions, fraternal or athletic groups, or [...] on file Legal Sex Female 11:01 PM SENIOR INTEGRATION DEVELOPER Gender Identity Not on file Sexual Orientation Not on file Obstetrics History Last Filed Vital Signs Vital Sign Reading Time Taken Comments Blood Pressure 100/60 08/26/2024 9:32 AM SENIOR INTEGRATION DEVELOPER Pulse 93 08/26/2024 9:32 AM SENIOR INTEGRATION DEVELOPER Temperature 36.2 ??C (97.2 ??F) 05/23/2023 11:54 PM C DT Respiratory Rate 16 05/24/2023 1:45 AM CDT Oxygen Saturation 95% 05/24/2023 1:45 AM CDT Inhaled Oxygen Concentration - - Weight 98.4 kg (217 lb) 08/26/2024 9:32 AM SENIOR INTEGRATION DEVELOPER Height 165.1 cm (5' 5 ) 08/26/2024 9:32 AM SENIOR INTEGRATION DEVELOPER Body Mass Index 36.11 08/26/2024 9:32 AM SENIOR INTEGRATION DEVELOPER Plan of Treatment Health Maintenance Due Date Last Done Comments Albumin Creatinine Ratio, Urine 1974 Breast Cancer Screening-Mammogram 1974 Depression Screening 1974 Foot Exam 1974 Hepatitis C Screening 1974 Pneumococcal vaccine <65 (1 of 2 - PCV) 1980 Dilated Eye Exam 1984 Regular Well Visit/Exam 18-64 1992 Hemoglobin A1C 03/22/2022 09/22/2021 TSH Level 04/25/2023 04/25/2022, 09/10, 05/09/2021 Influenza Vaccine (#1) 2024 eGFR 05/24/2024 05/24/2023, 09/10, 09/22/2021, Additional history exists Colon Cancer Screening-Colonoscopy 06/07/20242013 Lipid Panel 09/15/2024 09/15/2023, 04/10, 06/26/2014 DTaP/Tdap/Td Vaccine (6 - Td or Tdap) 08/04/2029 08/04/2019, 05/29/1977, 01/17/1976, Additional history exists Procedures Procedure Name Priority Date/Time Associated Diagnosis Comments EGFR STAT 05/24/2023 12:04 AM CDT THYROID FUNCTION CASCADE STAT 09/22/2021 11:57 AM SENIOR INTEGRATION DEVELOPER HEMOGLOBIN A1C STAT 09/22/2021 9:31 AM SENIOR INTEGRATION DEVELOPER SERUM LIPID PANEL Routine 06/26/2014 8:1 1 AM SENIOR INTEGRATION DEVELOPER COLONOSCOPY REPORT 06/07/2014 from Last 3 Months [...] of Race in Diagnosing Kidney Disease, JASN 2020). The CKD-EPI equation should not be used for patients with unstable renal function and has not been validated in children and those over 70. Current interpretive data was last reviewed 2021. Blood 05/24/2023 12:0 4 AM CDT 05/24/2023 12:09 AM CDT us Bob Roblero MD LAB BLOOD ORDERABLES Final Res ult Performing Organization Address [facility] Co de Phone Number [facility] [address] [place] [address] * TSH reflex to free T4 (09/22/2021 11:57 AM SENIOR INTEGRATION DEVELOPER) Pathologist [facility] TSH 2.85 0.30 - 4.20 mcIUnit/mL [facility] Blood 09/22/2021 11:5 7 AM SENIOR INTEGRATION DEVELOPER 09/22/2021 12:23 PM SENIOR INTEGRATION DEVELOPER us Chad Mayo Jr., MD LAB BLOOD ORDERABLES Final Result Performing Organization Address [facility] de Phone Number [address] [address] * (ABNORMAL) Hemoglobin A1c (09/22/2021 9:31 AM SENIOR INTEGRATION DEVELOPER) Hgb A1C 11.7(H) 4.0 - 5.6 % [facility] Estimated Average Glucose 289 mg/dL [facility] Comment: The ADA recommends reporting an estimated Average Glucose (eAG) with all Hemoglobin A1c results using the equation derived from a study of 507 normal and diabetic adults. ??Minority populations were underrepresented and children were not included. ?? (Diabetes Care 31:0972-0532, 2008). ??The eAG is not equivalent to a fasting glucose. Blood 09/22/2021 9:31 AM SENIOR INTEGRATION DEVELOPER 09/22/2021 10:38 AM SENIOR INTEGRATION DEVELOPER us Chad Mayo Jr., MD LAB BLOOD ORDERABLES Final Result Performing Organization Address [facility] Co de Phone Number [address] [address] * (ABNORMAL) Serum lipid panel (06/26/2014 8:11 AM SENIOR INTEGRATION DEVELOPER) Cholesterol 328(H) 40 - 199 mg/dl HISTORICAL [...] revised on 2012. Serum 06/26/2014 8:11 AM SENIOR INTEGRATION DEVELOPER us Historical Provider LAB BLOOD ORDERABLES Salma pfeiffer Result HISTORICAL RESULTS * COLONOSCOPY REPORT (06/07/2014) Anatomical Region Laterality Modality Other Narrative 06/07/2014 Ordered by an unspecified provider. us Historical Provider GI PROCEDURE ORDERABLES F inal Result from Last 3 Months or Most Recently Relevant to Health Maintenance Insurance MEDICARE SOLUTIONS [facility] HE[facility]AN [facility] IDPA Advance Directives For more information, please contact: [phone] * Full Code (Latest Code Status on File) Date Activated Date Inactivated Comments 09/22/2021 7:24 PM 09/24/2021 8:45 PM Care Teams Strap Buckler Relationship Specialty Start Date End Date Donte Lucas PA [address] [place] [phone] PCP - General Physician Home Office Representative 08/26/24
--- OUTSIDE RECORDS SUMMARY | 2024-09-10 12:02 | XMS_ITS | Clinical Summary ---
Author Organization [facility] Address [address] [address] Care Team Providers Care Mileage Clerk Name Role Phone Clement Pinto APRN-COLLET MAKER Primary Care Provider Source Comments [facility],non-owned Affiliates and Associated Physician Practices is amultiple site organization consisting of ambulatory clinics and hospital sitesin [place], [place], [place] and [place]. This disclosure is being madepursuant to the Care Everywhere program and may not contain all information available regarding this patient. Last updated [email or web address] [facility] Allergies Active Allergy Reactions Criticality Noted Date Comments Codeine Itching Medium 10/18/2015 Erythromycin Vomiting 10/18/2015 Cephalexin Urticaria High 10/18/2015 hives Medications * Be aware that medications may not be up to date on this document. Alwaysverify current medications with the patient. Medication Sig Dispensed Refills Start Date End Date Status insulin detemir (LEVEMIR) vial Inject 46 (forty six) Units subcutaneously as directed Active insulin aspart (NOVOLOG) vial Inject subcutaneously as directed Active atorvastatin (Lipitor) 80 MG tablet Take 1 (one) tablet by mouth at bedtime Active cetirizine (ZyrTEC) 10 MG tablet 1 (one) tablet once daily Active rivaroxaban (Xarelto) 20 MG tablet 12/23/2022 Active metoprolol succinate XL 24hr (Toprol XL) 25 MG tablet Take 1 (one) tablet by mouth once daily Active cyclobenzaprine (Flexeril) 5 MG tablet Take 1 (one) tablet by mouth 3 times daily as needed Active acetaminophen CR (Tylenol Arthritis Pain) 650 MG tablet Take 2 (two) tablets by mouth every 8 hours as needed for Pain Active senna (Senokot) 8.6 MG tablet Take by mouth once daily Active polyethylene glycol 3350 (Miralax) 17 GM/SCOOP powder Take 17 (seventeen) g by mouth once daily Active pregabalin (Lyrica) 100 MG capsule Take 1 (one) capsule by mouth 3 times daily Active dapagliflozin propanediol (Farxiga) 10 MG tablet Take 1 (one) tablet by mouth every morning Active miglitol (Glyset) 50 MG tablet TAKE 1 TABLET BY MOUTH 2 TIMES DAILY AT THE start of each main meal (with THE first bite) 04/20/2023 Active celecoxib (CeleBREX) 200 MG capsule Take 1 (one) capsule by mouth once daily Active HYDROcodone-acetam inophen ([place]) 5-325 MG tabletIndications: Post-operative state Take 1 (one) tablet by mouth every 6 hours as needed for Pain 30 tablet 05/13/2023 Active Active Problems Problem Noted Date Diagnosed [...] Mass Index 35.11 05/13/2023 8:52 AM CDT Plan of Treatment Health Maintenance Due Date Last Done Comments COLOGUARD (AGES 45-75) - COL ON CA SCREENING 1974 COLON MONITORING 1974 COLONOSCOPY - COLON CA SCREENING 1974 CT COLONOGRAPHY - COLON CA SCREENING 1974 Colorectal Cancer Screening 1974 FIT - COLON CA SCREENING 1974 FLEX SIG - COLON CA SCREENING 1974 MAMMOGRAM 1974 PAP SMEAR 1974 HIV SCREENING 1989 HEPATITIS C SCREENING 12/09/1992 DTAP/TDAP/TD VACCINES (1 - Tdap) 1993 HEPATITIS B VACCINE (1 of 3 - 19+ 3-dose series) 1993 PNEUMOCOCCAL VACCINE (1 of 2 - PCV) 1993 COVID-19 VACCINE (1 - 2023-2 5 season) 2024 INFLUENZA VACCINE (#1) 2024 DEPRESSION SCREENING 08/10/2024 MEDICARE AWV ? CALENDAR YEAR 2024 ZOSTER VACCINE (1 of 2) 2024 HIB VACCINE Aged Out No longer eligi ble based on patient's age to complete this topic HPV VACCINE Aged Out No longer eligi ble based on patient's age to complete this topic MENINGOCOCCAL (Group B) VACCINE Aged Out No longer eligible based on patient's age to complete this topic MENINGOCOCCAL VACCINE Aged Out No cyrus darnell eligible based on patient's age to complete this topic Care Teams Mileage Clerk Relationship Specialty Start Date End Date Clement Pinto APRN-COLLET MAKER [address] [place] [phone] PCP - General Nurse Practitioner Family 05/13/23
--- OUTSIDE RECORDS SUMMARY | 2024-09-10 12:02 | XMS_ITS | Continuity of Care Document ---
Author Organization [facility] Address [address] [place] [address] Phone Care Team Providers Care Parliamentary Counsel Name Role Phone Arnulfo Farrell Unavailable Unavailable Advance Directives Directive Yes / No Effective Date File Name No Information Encounters Encounter Description Practice Location Reason(s) For Visit Diagnoses Date Provider Providers Copied on Encounter [facility], [address] [place] [address], [facility], tel:[phone] *[facility] No Information Bud Arredondo. [address] [place] [address], [facility], . tel:[phone] Family History Family Member Type Diagnosis Age At Onset No Information Payers Payer name Insurance type Covered green party ID Authoriza tion(s) No Information Social History Type Description Quantity Date Captured Comments Sex Female Smoking Status No Information Chief Complaint And Reason For Visit No Information Reason For Referral Reason For Referral No Information History Of Present Illness Encounter Date Complaint History Of Prese nt Illness No Information Functional Status Date Functional Assessmen t No Information Instructions Date Instruction Additional Infor mation No Information Assessments Type Assessment Date No Information Patient Care Teams Name Effective Dates (start - stop) Status Members No Information
--- OUTSIDE RECORDS SUMMARY | 2024-09-10 12:02 | XMS_ITS | Continuity of Care Document ---
Author Organization [facility] Address [id number] [place] [address] [address] [place] [address] Phone Care Team Providers Care Lozenge Dough Mixer Name Role Phone Josh Teixeira MD, MD Unavailable Unavailab le Procedures Procedure Date POSTOP FOLLOW-UP VISIT CATARACT SURG W/IOL, 1 STAGE CATARACT SURG W/IOL, 1 STAGE OFFICE/OUTPATIENT VISIT, [facility] Advance Directives Directive Yes / No Effective Date File Name No Information Encounters Encounter Description Practice Location Reason(s) For Visit Diagnoses Date Provider Providers Copied on Encounter [facility], [address], [place], [place], [id number], [place] tel:[phone] [facility] No Information 4 Puneet Moreno. [address], [place], [place], [id number] , [place]. [phone] Referring Provider: Josh Watkins, [address], [place], [place], [id number]. tel:[phone] [facility], [address], [place], [place], [id number], [place] tel:[phone] [facility] No Information 4 Puneet Moreno. [address], [place], [place], [address] , [place]. [phone] Referring Provider: Josh Watkins, [address], [place], [place], [address]. tel:[phone] [facility], [address] [address], [place], [place], [address], tel:[phone] [facility] No Information 3 Puneet Moreno. [address], [place], [place], [address] , [place]. tel:[phone] Referring Provider: Josh Watkins, [address], [place], [place], [address]. tel:[phone] OFFICE/OUTPAT IENT VISIT, [facility], [address], [place], [place], [id number], tel:[phone] [facility] CONSULT [facility] No Information 3 Puneet Moreno. [address], [place], [place], [id number] , [place]. tel:[phone] Referring Provider: Josh Watkins, [address], [place], [place], [address]. tel:[phone] Family History Family Member Type Diagnosis Age At Onset No Information Payers Payer name Insurance type Covered republican ID Authoriza tion(s) No Information Social History Type Description Quantity Date Captured Comments Sex Female Smoking Status No Information Chief Complaint And Reason For Visit No Information Plan Of Treatment Date Type Action Status No Information History Of Present Illness Encounter Date Complaint History Of Prese nt Illness No Information Instructions Date Instruction Additional Infor mation No Information Assessments Type Assessment Date No Information
--- OUTSIDE RECORDS SUMMARY | 2024-09-10 12:02 | XMS_ITS | Clinical Summary ---
Author Organization [facility] Address [address] [place] [address] Phone Care Team Providers Care Gear Repair Supervisor Name Role Phone Arnoldo Gary MD Primary Care Provider [phone] Allergies Active Allergy Reactions Criticality Noted Date Comments Cephalexin Unknown 06/23/2014 Codeine Unknown 06/23/2014 Erythromycin Unknown 06/23/2014 Insulin Glargine Swelling Low 04/27/2022 Medications insulin lispro (HumaLOG) 100 unit/mL pen syringe Inject 0-9 Units by subcutaneous injection 3 times daily with meals. 15 mL 1 Active insulin lispro (HumaLOG) 100 unit/mL pen syringe Inject 3 Units by subcutaneous injection 3 times daily with meals. 15 mL 1 Active methyl salicylate-ment hol (BENGAY) 15-10 % Cream Apply to affected area every 6 hours as needed for Pain. 1 Active nitroglycerin (NITROSTAT) 0.4 mg Tablet, Sublingual Place 1 Tablet (0.4 mg) under tongue every 5 minutes as needed for Chest Pain. 1 Active peg 400-hypromellos e-glycerin 1-0.2-0.2 % solution Administer 2 Drops in both eyes every 4 hours as needed for Discomfort. 1 Active prednisoLONE acetate (PRED FORTE) 1 % suspension Administer 1 Drop in right eye 2 times daily. 1 Active sennosides-docu sate sodium (SENNA-S) 8.6-50 mg tablet Take 1 Tablet by mouth 2 times daily. 1 Active apixaban (ELIQUIS) 5 mg tablet Take 1 Tablet (5 mg) by mouth 2 times daily. 60 Tablet 1 Active ascorbic acid, vitamin C, (VITAMIN C) 500 mg tablet Take 1 Tablet (500 mg) by mouth 2 times daily. 60 Tablet 1 Active aspirin (ECOTRIN EC) 81 mg Tablet, Delayed Release (E.C.) Take 1 Tablet (81 mg) by mouth daily. 30 Tablet 1 Active atorvastatin (LIPITOR) 80 mg tablet Take 1 Tablet (80 mg) by mouth daily at bedtime. 30 Tablet 1 Active acetaminophen (TYLENOL) 325 mg tablet Take 2 Tablets (650 mg) by mouth every 6 hours as needed for Temperature (temp > 100.4). 50 Tablet 1 Active calcium as carbonate (OS-PING) 1,250 mg (500 mg elemental) tablet Take 1 Tablet (500 mg) by mouth 2 times daily with meals. 60 Tablet 1 Active ergocalciferol (VITAMIN D2) 50,000 unit capsule Take 1 Capsule (50,000 Units) by mouth every 7 days. 4 Capsule 1 Active melatonin 3 mg Tablet Take 1 Tablet (3 mg) by mouth daily at bedtime. 30 Tablet 1 Active pantoprazole (PROTONIX) 40 mg Tablet, Delayed Release (E.C.) Take 1 Tablet (40 mg) by mouth 2 times daily. 60 Tablet 1 Active bumetanide (BUMEX) 1 mg tablet Take 1 Tablet (1 mg) by mouth 2 times daily. 60 Tablet 2 Active carvediloL (COREG) 3.125 mg tabletIndicatio ns:HOLD for systolic BP less than 90mmHg Take 1 Tablet (3.125 mg) by mouth every 12 hours. 60 Tablet 2 Active insulin detemir U-100 (LEVEMIR) 100 unit/mL pen syringe Inject 25 Units by subcutaneous injection daily with breakfast AND 10 Units daily at bedtime. 3 mL 2 Active Active Problems Patient Care Coordination No te Formatting of this note migh t be different from the original. 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 LIIDA FREEMAN Problem Noted Date Diagnosed Date Acute hyperkalemia 04/25/2022 Acute renal failure 04/25/2022 History of pulmonary embolism 04/25/2022 HTN (hypertension), benign 04/25/2022 HLD (hyperlipidemia) 04/25/2022 HFrEF (heart failure with reduced ejection fract ion) 04/25/2022 Polypharmacy 04/25/2022 Hyperkalemia 04/25/2022 Protein-calorie malnutrition, moderate Acute encephalopathy 03/28/2021 Hypoglycemia 03/28/2021 Hypotension 03/28/2021 Diabetes mellitus 06/23/2014 Overview (06/23/2014): DM was diagnosed in 199206/14/2014: HgA1c 15% 01/2014: HgA1c 14.1%, glucose 403, Alk phos 209, other CMP wnl Insulin long-term use 06/23/2014 Dietary surveillance and counseling 06/23/2014 Osteomalacia 06/23/2014 Hyperlipidemia 06/23/2014 Overweight(278.02) 06/23/2014 History of tobacco use, presenting hazards to he alth 06/23/2014 Closed nondisplaced intertro chanteric fracture of left femur Dysphagia Septic shock Acute pulmonary embolism without acute cor pulmo nale Takotsubo cardiomyopathy Acute respiratory failure Urinary tract infection without hematuria Fall Aspiration pneumonia of right upper lobe E. coli pyelonephritis Anxiety Situational depression ACP (advance care planning) Medically complex patient Palliative care encounter Acute HFrEF (heart failure with reduced ejection fraction) Sinus tachycardia Ischemic cardiomyopathy CAD in wiyot artery Asthma GERD (gastroesophageal reflux disease) Critical illness polyneuropathy Family History Medical History Relation Name Comments Liver Disease Father Blood Disorder Mother Diabetes Mother Heart Attack Mother Heart Failure Mother Hypertension Mother Kidney Disease Mother Sleep Disorder Mother Stroke Mother Thyroid Disease Mother Relation Name Status Comments Father Mother Social History Tobacco Use Types Packs/Day Years Used Date Smoking Tobacco: Every Day Alcohol Use Standard Drinks/Week Comments No 0 (1 standard drink = 0.6 oz pur e alcohol) Comments Unknown Sex and Gender Information Value Date Recorded Sex Assigned at Not on file Legal Sex Female 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 Gender Identity Not on file Sexual Orientation Not on file Occupation Industry Job Start Date Job End Date Not on file Not on file Not on file Not on file Last Filed Vital Signs Vital Sign Reading Time Taken Comments Blood Pressure 100/53 04/29/2022 9:30 AM CDT Pulse 93 04/29/2022 9:30 AM CDT Temperature 36.4 ??C (97.5 ??F) 04/29/2022 9:30 AM CD T Respiratory Rate 18 04/29/2022 9:30 AM CDT Oxygen Saturation 95% 04/29/2022 9:30 AM CDT Inhaled Oxygen Concentration - - Weight 98.7 kg (217 lb 8 oz) 04/28/2022 8:43 PM CDT Height 165.1 cm (5' 5 ) 04/28/2022 8:43 PM CDT Body Mass Index 36.19 04/28/2022 8:43 PM CDT Plan of Treatment Health Maintenance Due Date Last Done Comments DIABETES ANNUAL RETINAL EXAM 1992 DTAP/TDAP/TD VACCINES (1 - Tdap) 1993 HEPATITIS B VACCINES (1 of 3 - 19+ 3-dose series) 1993 CERVICAL CANCER SCREENING 2004 BREAST CANCER SCREENING 2014 DIABETES MICROALBUMIN ANNUAL SCREEN 06/26/2015 06/26/2014 COLORECTAL SCREENING 12/15/2019 Colorectal Cancer Screening 12/15/2019 FIT-DNA Q 3 years 12/15/2019 FIT/FOBT Q 1 year 12/15/2019 Flex Sig/CT Colonography Q 5 years 12/15/2019 DIABETES ANNUAL FOOT EXAM 07/03/2021 07/03/2020 LDL CHOLESTEROL ANNUAL 04/20/2022 04/20/2021, 2013 DIABETES HBA1C Q 6 MONTHS 10/23/20222021, 09/22/2021, 03/30/2021, Additional history exists INFLUENZA VACCINE (#1) 2024 Medical Devices Implanted Type Area Tubing Mill Operator Device Identifier Shelf Expiration Date Model / Serial / Lot Tfna Fenestrated Screw 90mm Implanted:Qty: 1 on 03/27/2021 by Bob Deras MD at [facility] Screw Left: Hip SYNTHES [employer] [facility] [[email or web address]] 02/06/2031 04.038.19 0 S / / [id number] Screw Loc Stardrv 5x62mm Strl 04.005.552s - Sload 23 Implanted:Qty: 1 on 03/27/2021 by Bob Deras MD at [facility] Screw Left: Hip SYNTHES [employer]AT[employer] 04.005.55 2 S / LOAD 03/14/21 11mm/125deg Ti Js Tfna 380mm/Left Implanted:Qty: 1 on 03/27/2021 by Bob Deras MD at [facility] Left: Hip SYNTHES LTD [facility] [[email or web address]] 01/07/2030 04.037.12 9 S / / [id number] Description:All Synthes comp onents are processed on requisition, [id number]. Procedures Procedure Name Priority Date/Time Associated Diagnosis Comments HEMOGLOBIN A1C Stat 04/25/2022 3:22 AM CDT LIPID PANEL Routine 04/20/2021 5:30 AM CDT MICROALBUMIN/CREATIN INE RATIO, RANDOM UR Routine 06/26/2014 Diabetes mellitus (CMS/[facility]) from Last 3 Months or Most Recently Relevant to Health Maintenance Results * (ABNORMAL) HEMOGLOBIN A1C (04/25/2022 3:22 AM CDT) HEMOGLOBIN A1C 8.2(H) <=5.6 % 04/25/2022 4:13 AM CDT [facility] [place] EST. AVG GLUCOSE, A1C 189 mg/dL 04/25/2022 4:13 AM CDT [facility] Blood Venipuncture / Unknown 04/25/2022 3:22 AM CDT 04/25/2022 3:43 AM CDT Narrative [facility] - 04/25/2022 4:13 AM CDT HGB A1C INTERPRETATION NORMAL: ? <5.7% PRE-DIABETES: 5.7 - 6.4% DIABETES: ? 6.5% OR GREATER us Alphonse Samson MD CHEMISTRY ORDERABLES Final Result [facility] CL[facility] # [id number] [facility] [address] [place] [address] * (ABNORMAL) LIPID PANEL (04/20/2021 5:30 AM CDT) [facility] Signature CHOLESTEROL 166 <200 mg/dL 04/20/2021 6:55 AM CDT [facility] - . [facility] TRIGLYCERIDE 83 <150 mg/dL 04/20/2021 6:55 AM T [facility] - . [place] HDL 40 40 - 59 mg/dL 04/20/2021 6:55 AM T [facility] LDL CALCULATED 109(H) <100 mg/dL 04/20/2021 6:55 AM T [facility] - . [facility] NON-HDL CHOLESTEROL 126 <130 mg/dL 04/20/2021 6:55 AM T [facility] Blood Venipuncture / Unknown 04/20/2021 5:30 AM CDT 04/20/2021 6:21 AM CDT Narrative [facility] - 04/20/2021 6:55 AM CDT TOTAL CHOLESTEROL ??mg/dL ??Desirable <200 ??Borderline high 200-239 ??High >=240 TRIGLYCERIDES ??mg/dL ??Normal <150 ??Borderline high 150-199 ??High 200-499 ??Very high >=500 HDL CHOLESTEROL ??mg/dL ??Low <40 ??Normal 40-59 ??Desirable >=60 NON HDL CHOLESTEROL mg/dL ??Optimal <130 ??Near Optimal 130-159 ??Borderline High 160-189 ??Very High >=190 CALCULATED LDL mg/dL ??LDL <70, OPTIMAL if have Atherosclerotic cardiovascular disease (ASCVD) ??or intermediate or higher (>7.5%) 10 year risk of ASCVD including most adults ??with diabetes. ??LDL <100, Optimal in adult patients with low (<7.5%) 10 year ASCVD risk ??LDL 100-160, Suboptimal ??LDL >160, High ??LDL >190, Very high ATPIII Guidelines Reference Ranges for Lipid Panels (NCEP/AMA) . [facility] Tawana Kelly MD CHEMISTRY ORDERABLES Final Result [facility] - [facility] CLIA# [id number] [address] [place] [address] * MICROALBUMIN/CREATININE RATIO, RANDOM UR (06/26/2014) Urine specimen (specimen) Orquidea Delgado MD URINE ORDERABLES Final Result [facility] [place] CLIA # [id number] [address] [place] [address] from Last 3 Months or Most Recently Relevant to Health Maintenance Additional Health Concerns Infection Onset Date Last Indicated MRSA Comment:hx MRSA documented per 12/22/17 infectious disease screening form - Cierra Becker RN 12/24/2017 05/09/[address] [place] [address] [address] MEDICAID [place] [facility] MEDICARE Advance Directives For more information, please contact: [phone] * Full Code (Latest Code Status on File) Date Activated Date Inactivated Comments 04/25/2022 2:46 AM 04/29/2022 5:00 PM * Full Code Date Activated Date Inactivated Comments 05/08/2021 5:35 PM 05/24/2021 5:02 PM * Full Code Date Activated Date Inactivated Comments 03/27/2021 7:30 AM 05/08/2021 5:20 PM Care Teams Gear Repair Supervisor Relationship Specialty Start Date End Date Arnoldo Gary MD [address] [place] [address] PCP - General Internal Medicine 03/27/21
--- OUTSIDE RECORDS SUMMARY | 2024-09-10 12:02 | XMS_ITS | Clinical Summary ---
Author Organization [facility] Address Formerly [facility] 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 Name Role Phone Rose Conn MD Unavailable Keith Goodwin MD Unavailable Ace Honeycutt MD Primary Care Provider Allergies Active Allergy Reactions Criticality Noted Date Comments Cephalexin Unknown,Hives,Other (see comment) High 10/18/2015 hives Reaction: Unknown, ??, Codeine Unknown,Itching,Othe r (see comment) High 10/18/2015 Reaction: Unknown, , Erythromycin Unknown,Nausea and Vomiting,Vomiting High 10/18/2015 Insulin Glargine Unknown,Swelling Low 04/27/2022 Metformin Other (see comment) 09/14/2023 Medications HYDROcodone-ac etaminophen (NORCO) 5-325 MG tablet Take 1 tablet by mouth every 6 (six) hours as needed for Pain. Active insulin lispro, 1 Unit Dial, (HUMALOG) 100 UNIT/ML injection (PEN) Inject 46 Units into the skin once. AT HS Active insulin aspart (NOVOLOG) 100 UNIT/ML injection (PEN) Inject into the skin 3 (three) times daily before meals. SLIDING SCALE Active tirzepatide (MOUNJARO) 2.5 MG/0.5ML injection Inject 1 mg into the skin every 7 days. Active ezetimibe (ZETIA) 10 MG tablet Take 1 tablet (10 mg total) by mouth daily. Active atorvastatin (LIPITOR) 80 MG tablet Take 1 tablet (80 mg total) by mouth daily. 04/20/20 23 Active aspirin EC (ECOTRIN) 81 MG tablet Take 1 tablet (81 mg total) by mouth daily. 90 tablet 3 09/14/19 24 Active gabapentin (NEURONTIN) 300 MG capsule Take 1 capsule (300 mg total) by mouth 2 (two) times a day. 400 in am and 1200 at hs 09/29/19 24 Active FARXIGA 10 MG tablet Take 1 tablet (10 mg total) by mouth daily. 06/09/20 23 Active cyclobenzaprin e (FLEXERIL) 5 MG tablet Take 1 tablet (5 mg total) by mouth. Active Continuous Blood Gluc Sensor (FREESTYLE DUONG 2 SENSOR) [facility] 10/05/19 24 Active celecoxib (CELEBREX) 200 MG capsule Take 1 capsule (200 mg total) by mouth 2 (two) times daily. Active metoprolol succinate ER 25 MG Capsule ER 24 Hour Sprinkle 24 hr sprinkle capsule Take 12.5 mg by mouth daily. 12/24/19 23 Active rivaroxaban (XARELTO) 20 MG Tab tablet Take 0.5 tablets (10 mg total) by mouth daily with supper. 30 tablet 6 10/06/19 24 025 Active REGRANEX 0.01 % Gel APPLY TO WOUND ONCE A DAY 08/18/19 25 Active insulin detemir (LEVEMIR FLEXPEN) 100 UNIT/ML PEN See Instructions, Subcutaneous 46 units every am, and 10 units at HS orders to titrate to FBS 130 or less max dose 60 units, # 30 mL, 4 Refill(s), Pharmacy: [facility], 165.1, 08/08/22 11:09:00 RADIOLOGY RN, Height/Length Measured, cm, 93.4,... 08/12/19 23 Active Senna (SENOKOT) 8.6 MG tablet Take 1 tablet (8.6 mg total) by mouth daily. Active clindamycin (CLEOCIN) 150 MG capsule Take 3 capsules (450 mg total) by mouth 3 (three) times daily. 08/26/19 24 025 Discontinued sacubitril-sherry sartan (ENTRESTO) 24-26 MG tablet Take 0.5 tablets by mouth 2 (two) times daily. 025 Discontinued Active Problems Problem Noted Date Diagnosed Date PAD (peripheral artery disease) 10/06/2023 History of pulmonary embolus (PE) 10/06/2023 Diabetic ulcer of toe of lef t foot associated with type 2 diabetes mellitus, limited to breakdown of skin ([facility]) 09/15/2023 Diabetic ulcer of right heel associated with type 2 diabetes mellitus, limited to breakdown of skin ([facility]) Encounters Date Type Department Care Team Description 08/31/2024 9:00 AM RADIOLOGY RN Office Visit [facility] Surgical Services [address] [place] [address] Jorge Mclean MD Gallbladder (CLIENT APPLICATION SUPPORT ENGINEER, gallstones) 08/31/2024 Travel 08/23/2024 Abstract [facility] [address] [place] [address] Abstract, Doc Pccl 08/19/2024 7:19 AM RADIOLOGY RN - 08/19/2024 10:06 AM [facility] Emergency [facility] [address] [place] [address] Marciano Mora DO Abdominal Pain; Edema Discharge Disposition: Home or Self Care (Routine Discharge) 08/19/2024 Travel 08/12/2024 Transcribe Orders [facility] Pre Access Team [address] [place] [address] Raúl Avalos NP 08/01/2024 11:13 AM RADIOLOGY RN - 08/01/2024 11:59 PM RADIOLOGY RN Hospital [facility] [place] [address] Lorenza Inman MD Discharge Disposition: Home or Self Care (Routine Discharge) 08/01/2024 Orders Only [facility] [place] [address] Raúl Avalos NP 08/01/2024 Travel 07/29/2024 9:44 AM RADIOLOGY RN - 07/29/2024 11:59 PM [facility] Hospital Encounter [facility] [address] [place] [address] Raúl Avalos NP Discharge Disposition: Home or Self Care (Routine Discharge) 07/29/2024 Travel 07/18/2024 12:00 PM RADIOLOGY RN Office Visit [facility] [address] [place] [address] Rose Conn MD Heart Problem 07/18/2024 11:22 AM RADIOLOGY RN - 07/18/2024 11:59 PM RADIOLOGY RN Hospital Encounter [facility] [address] [place] [address] Rose Conn MD Discharge Disposition: Home or Self Care (Routine Discharge) 07/18/2024 Telephone [facility] [address] [place] [address] Rose Conn MD Schedule Test 07/18/2024 Travel 07/18/2024 Orders Only [facility] [address] [place] [address] Rose Conn MD 07/11/2024 Telephone [facility] [address] [place] [address] Rose Conn MD Reschedule 07/10/2024 Scan [facility] [address] [place] [address] Scanned, Doc Pccl Image (SCAN); ECG (SCAN) 07/10/2024 Scan [facility] [address] [place] [address] Scanned, Doc Pccl Image (SCAN) 07/05/2024 Telephone [facility] [address] [place] [address] Rose Conn MD Appointment Request 07/04/2024 11:59 PM RADIOLOGY RN Anesthesia Event [facility] [address] [place] [address] Valentino Hull CRNA 07/04/2024 Travel 06/28/2024 12:53 PM RADIOLOGY RN - 06/28/2024 11:59 PM RADIOLOGY RN Hospital Encounter [facility] [address] [place] [address] Tiffanie Abreu FNP Discharge Disposition: Home or Self Care (Routine Discharge) 06/28/2024 12:15 PM RADIOLOGY RN - 06/28/2024 12:52 PM RADIOLOGY RN Hospital Encounter [facility] [address] [place] [address] Lorenza Inman MD Discharge Disposition: Home or Self Care (Routine Discharge) 06/28/2024 12:14 PM RADIOLOGY RN Hospital Encounter [facility] [place] [address] Lorenza Inman MD Discharge Disposition: Home or Self Care (Routine Discharge) 06/28/2024 Orders Only [place] [address] [place] [address] Lorenza Inman MD 06/28/2024 Travel 06/21/2024 12:42 PM RADIOLOGY RN - 06/21/2024 11:59 PM RADIOLOGY RN Hospital Encounter [facility] [place] [address] Tiffanie Abreu FNP Discharge Disposition: Home or Self Care (Routine Discharge) 06/21/2024 Travel 06/10/2024 3:59 PM CDT - 06/10/2024 11:59 PM CDT Hospital Encounter [place] [id number] [place] [address] Tiffanie Abreu FNP Discharge Disposition: Home or Self Care (Routine Discharge) 06/10/2024 Orders Only [facility] [place] [address] Tiffanie Abreu FNP 06/10/2024 Travel from Last 3 Months Family History Medical History Relation Comments Heart Attack Maternal Grandfather Open Heart Maternal Grandfather Heart Attack Maternal Grandmother Heart Attack Mother Stroke Mother Relation Status Comments Father Maternal Grandfather Maternal Grandmother Mother Social History Tobacco Use Types Packs/Day Years Used Date Smoking Tobacco: Every Day Cigarettes Smokeless Tobacco: Never Tobacco Cessation:Ready to Q uit: Not Asked; Counseling Given: Not Answered Alcohol Use Standard Drinks/Week Comments Never 0 (1 standard drink = 0.6 oz pur e alcohol) Comments No Sex and Gender Information Value Date Recorded Sex Assigned at Female 08/31/2024 8:28 AM RADIOLOGY RN Legal Sex Female 8:37 PM CDT Gender Identity Not on file Sexual Orientation Not on file Last Filed Vital Signs Vital Sign Reading Time Taken Comments Blood Pressure 108/62 08/31/2024 8:51 AM RADIOLOGY RN Pulse 94 08/31/2024 8:51 AM RADIOLOGY RN Temperature 36.7 ??C (98.1 ??F) 08/19/2024 7:30 AM CS T Respiratory Rate 16 08/31/2024 8:51 AM RADIOLOGY RN Oxygen Saturation 99% 08/31/2024 8:51 AM RADIOLOGY RN Inhaled Oxygen Concentration - - Weight 100.5 kg (221 lb 9.6 oz) 08/31/2024 8:51 AM RADIOLOGY RN Height 165.1 cm (5' 5 ) 08/31/2024 8:51 AM RADIOLOGY RN Body Mass Index 36.88 08/31/2024 8:51 AM RADIOLOGY RN Plan of Treatment Upcoming Encounters Date Type Department Care Team (Late st Contact Info) Description 01/10/2025 12:[address] [facility] [place] [address] Rose Conn MD [address] [place] [address] 01/10/2025 1:[address] [facility] [place] [address] Rose Conn MD [address] [place] [address] 01/20/2025 3:15 PM CDT Office Visit [facility] [phone] Rose Conn MD [address] [place] [address] Health Maintenance Due Date Last Done Comments Colorectal Cancer Screening Colonoscopy (10 Years) 1974 Kidney Health Evaluation 1974 Annual Physical 1977 Pneumococcal Vaccine: Pediatrics (0 to 5 Years) and At-Risk Patients (6 to 64 Years) (1 of 2 - PCV) 1980 Diabetes: Retinopathy Eye Exam 1992 Hepatitis C 1992 DTaP, Tdap and Td Vaccines (1 - Tdap) 1993 Hepatitis B Vaccines (1 of 3 - 19+ 3-dose series) 1993 Mammogram Screening 2014 Hemoglobin A1C 09/09/2023 06/09/2023, 04/10, 09/22/2021, Additional history exists COVID-19 Vaccine ( season) 2024 Influenza Adult (#1) 2024 PHQ-2 (Physician [place]) 08/10/2024 Lipid Panel 09/15/2024 09/15/2023, 04/20/2021 Meningococcal B Vaccine Aged Out No l onger eligible based on patient's age to complete this topic Meningococcal Vaccine Aged Out No cyrus darnell eligible based on patient's age to complete this topic RSV Immunizations Under 20 Months Aged Out No longer eligible based on patient's age to complete this topic Procedures Procedure Name Priority Date/Time Associated Diagnosis Comments HC URINALYSIS AUTO W/MICRO STAT 08/19/2024 9:04 AM RADIOLOGY RN POCT GLUCOSE - CHISHOLM DOCKED DEVICE Routine 08/19/2024 8:54 AM RADIOLOGY RN XR CHEST PORTABLE STAT 08/19/2024 8:[address] ABD+PEL WO CON STAT 08/19/2024 8:0 7 AM RADIOLOGY RN PRO-BRAIN NATRIURETIC PEPTIDE STAT 08/19/2024 8:01 AM RADIOLOGY RN TROPONIN, QUANT STAT 08/19/2024 8:01 AM RADIOLOGY RN LIPASE STAT 08/19/2024 8:01 AM RADIOLOGY RN AMYLASE STAT 08/19/2024 8:01 AM RADIOLOGY RN COMPREHENSIVE METABOLIC PANEL STAT 08/19/2024 8:01 AM RADIOLOGY RN CBC W/DIFF AUTOMATED STAT 08/19/2024 8:01 AM RADIOLOGY RN ECG 12-LEAD STAT 08/19/2024 7:48 AM RADIOLOGY RN COMPREHENSIVE METABOLIC PANEL Routine 08/01/2024 11:40 AM RADIOLOGY RN Alkaline phosphatase elevation USV CAROTID DUPLEX MANPREET Routine 07/29/2024 11:30 AM RADIOLOGY RN CVA (cerebral vascular accident) (CMS/HCC HHS/HCC) MRI BRAIN WO CON Routine 07/29/2024 10:59 AM RADIOLOGY RN CVA (cerebral vascular accident) (CMS/HCC HHS/HCC) ECG 12-LEAD Routine 07/18/2024 11:31 AM RADIOLOGY RN Encounter for preprocedural cardiovascular examination ECG GENERIC (SCAN ORDER) Routine 07/10/2024 12:00 AM RADIOLOGY RN COMPREHENSIVE METABOLIC PANEL Routine 07/10/2024 PRO-BRAIN NATRIURETIC PEPTIDE Routine 07/10/2024 CBC, MANUAL DIFF Routine 07/10/2024 IMAGE GENERIC Routine 07/10/2024 BASIC METABOLIC PANEL Routine 06/28/2024 12:43 PM RADIOLOGY RN Preop testing CBC W/DIFF AUTOMATED Routine 06/28/2024 12:43 PM RADIOLOGY RN Preop testing ECG 12-LEAD Routine 06/28/2024 12:23 PM RADIOLOGY RN Preop testing CBC W/DIFF AUTOMATED Routine 06/10/2024 4:33 PM CDT Diabetic ulcer of toe of left foot associated with type 2 diabetes mellitus, with bone involvement without evidence of necrosis (CMS/HCC HHS/HCC) BASIC METABOLIC PANEL Routine 06/10/2024 4:33 PM CDT Diabetic ulcer of toe of left foot associated with type 2 diabetes mellitus, with bone involvement without evidence of necrosis (CMS/HCC HHS/HCC) SED RATE, ERYTHROCYTE (ESR) Routine 06/10/2024 4:33 PM CDT Diabetic ulcer of toe of left foot associated with type 2 diabetes mellitus, with bone involvement without evidence of necrosis (CMS/HCC HHS/HCC) C-REACTIVE PROTEIN Routine 06/10/2024 4: 33 PM CDT Diabetic ulcer of toe of left foot associated with type 2 diabetes mellitus, with bone involvement without evidence of necrosis (CMS/HCC HHS/HCC) LIPID PANEL Routine 09/15/2023 9:04 AM RADIOLOGY RN Familial hypercholesterolemia from Last 3 Months or Most Recently Relevant to Health Maintenance Results * (ABNORMAL) URINALYSIS (08/19/2024 9:04 AM RADIOLOGY RN) COLOR (U) YELLOW 08/19/2024 9:24 AM [facility] TRANSPARENCY CLEAR 08/19/2024 9:24 AM [facility] SPECIFIC GRAVITY (U) 1.015 1.000 - 1.025 08/19/2024 9:24 AM [facility] U PH 6.5 5.0 - 8.0 08/19/2024 9:24 AM [facility] LEUKOCYTES (U) 1+(A) NEGATIVE 08/19/2024 9:24 AM [facility] NITRITES NEGATIVE NEGATIVE 08/19/2024 9:24 AM [facility] PROTEIN RANDOM (U) NEGATIVE NEGATIVE 08/19/2024 9:24 AM [facility] GLUCOSE (U) 1+(A) NEGATIVE 08/19/2024 9:24 AM [facility] KETONES MG/DL (U) NEGATIVE NEGATIVE 08/19/2024 9:24 AM [facility] UROBILINOGEN 0.2 <1.0 EU/DL 08/19/2024 9:24 AM [facility] BILIRUBIN (U) NEGATIVE NEGATIVE 08/19/2024 9:24 AM RADIOLOGY RN [facility] BLOOD (U) NEGATIVE NEGATIVE 08/19/2024 9:24 AM RADIOLOGY RN [facility] WBC/HPF 5-10(A) 0 - 5 /HPF 08/19/2024 9:24 AM RADIOLOGY RN [facility] RBC/HPF 0-5 0 - 5 /HPF 08/19/2024 9:24 AM RADIOLOGY RN [facility] EPI/LPF MANY /LPF 08/19/2024 9:24 AM RADIOLOGY RN [facility] BACTERIA (U) TRACE /HPF 08/19/2024 9:24 AM RADIOLOGY RN [facility] URINE SPECIMEN OBTAINED BY CLEAN CATCH PROCEDURE / Unknown 08/19/2024 9:04 AM RADIOLOGY RN us Marciano Mora DO URINE ORDERABLES Final Resul t Performing Organization Address [facility]/[place] [address], * (ABNORMAL) POCT glucose (08/19/2024 8:54 AM RADIOLOGY RN) GLUCOSE POC 150(H) 70 - 99 MG/DL 08/19/2024 8:56 AM RADIOLOGY RN [facility] 08/19/2024 8:54 AM RADIOLOGY RN us Marciano Mora DO POCT ORDERABLES - DEVICE Fin al Result Performing Organization Address [facility] [place] [address], * XR CHEST PORTABLE (08/19/2024 8:16 AM RADIOLOGY RN) Anatomical Region Laterality Modality Chest Radiographic Marya ging 08/19/2024 8:17 AM RADIOLOGY RN Impressions 08/19/2024 8:18 AM RADIOLOGY RN IMPRESSION: 1. ??NO RADIOGRAPHIC EVIDENCE OF ACTIVE DISEASE IN THE CHEST. Signed: Joseph Doyle MD Referred By: ?? Interpreted By: Joseph Doyle MD, 08/19/2024 8:17 AM Narrative 08/19/2024 8:18 AM RADIOLOGY RN [address] [place] [address] PATIENT NAME: CEM MARSHALL EXAM: Chest one view DATE OF EXAM: 08/19/2024 COMPARISON EXAM: None INDICATION: Dyspnea TECHNIQUE: AP chest FINDINGS: Heart size within normal limits. ??Pulmonary vasculature unremarkable. ??No focal pulmonary parenchymal opacity. ??No pleural effusion. ??No hyperinflation. Procedure Note Joseph Dolye MD - 08/19/[address] [place] [address] PATIENT NAME: CEM MARSHALL EXAM: Chest one view DATE OF EXAM: 08/19/2024 COMPARISON EXAM: None INDICATION: Dyspnea TECHNIQUE: AP chest FINDINGS: Heart size within normal limits. Pulmonary vasculatureunremarkable. No focal pulmonary parenchymal opacity. No pleuraleffusion. No hyperinflation. IMPRESSION: 1. NO RADIOGRAPHIC EVIDENCE OF ACTIVE DISEASE IN THE CHEST. Signed: Joseph Doyle MD Referred By: Interpreted By: Joseph Doyle MD, 08/19/2024 8:17 AM Marciano Mora DO GENERAL IMAGING Final Result * CT ABD+PEL WO CON (08/19/2024 8:07 AM RADIOLOGY RN) Anatomical Region Laterality Modality Abdomen Computed Tomogra phy 08/19/2024 8:24 AM RADIOLOGY RN Impressions 08/19/2024 8:29 AM RADIOLOGY RN IMPRESSION: 1. No acute intra-abdominal or intrapelvic process identified. 2. Large amount of stool in the colon concordant with the history. 3. Coronary artery disease. 4. Cholelithiasis. Ordered By: MARCIANO MORA Interpreted By: Jeffery Prado MD, 08/19/2024 8:24 AM Narrative 08/19/2024 8:29 AM RADIOLOGY RN [address] [place] [address] Examination: CT of the abdomen and pelvis without contrast. Exam time: 0811 hours. Clinical history: Abdominal pain. Constipation. Normal WBC count. Prior hysterectomy and ORIF of the left hip. Comparison: None. Technique: Spiral scanning was performed through the abdomen and pelvis without contrast. Sagittal and coronal reconstructions were performed from the data set. ??A dose lowering technique was used for this procedure, which may include, but is not limited to, dose reduction techniques, automated exposure control, the use of iterative reconstruction and ALARA/Image Gently techniques. Findings: There is mild bilateral dependent subsegmental atelectasis. The lung bases are otherwise clear. No pleural effusions are seen. There is calcific coronary artery disease. There is cholelithiasis without signs of cholecystitis. The liver, spleen, pancreas, adrenals and kidneys appear unremarkable for the noncontrast technique. The urinary bladder is mildly distended but otherwise unremarkable. The uterus is not identified, compatible with the history. A normal-appearing appendix is visible. There is a large amount of stool in the colon, concordant with the history. There is no ascites, lymphadenopathy or bowel distention. The caliber of the abdominal aorta is normal. ORIF of the left hip with associated streak artifact noted. Procedure Note Jeffery Prado MD - 08/19/[address] [place] [id number] Examination: CT of the abdomen and pelvis without contrast. Exam time: 0811 hours. Clinical history: Abdominal pain. Constipation. Normal WBC count. Priorhysterectomy and ORIF of the left hip. Comparison: None. Technique: Spiral scanning was performed through the abdomen and pelviswithout contrast. Sagittal and coronal reconstructions were performed fromthe data set. A dose lowering technique was used for this procedure,which may include, but is not limited to, dose reduction techniques,automated exposure control, the use of iterative reconstruction andALARA/Image Gently techniques. Findings: There is mild bilateral dependent subsegmental atelectasis. Thelung bases are otherwise clear. No pleural effusions are seen. There iscalcific coronary artery disease. There is cholelithiasis without signs ofcholecystitis. The liver, spleen, pancreas, adrenals and kidneys appearunremarkable for the noncontrast technique. The urinary bladder is mildlydistended but otherwise unremarkable. The uterus is not identified,compatible with the history. A normal-appearing appendix is visible. Thereis a large amount of stool in the colon, concordant with the history.There is no ascites, lymphadenopathy or bowel distention. The caliber ofthe abdominal aorta is normal. ORIF of the left hip with associated streakartifact noted. IMPRESSION: 1. No acute intra-abdominal or intrapelvic process identified. 2. Large amount of stool in the colon concordant with the history. 3. Coronary artery disease. 4. Cholelithiasis. Ordered By: MARCIANO MORA Interpreted By: Jeffery Prado MD, 08/19/2024 8:24 AM Marciano Mora DO CT Final Result * (ABNORMAL) PRO-BRAIN NATRIURETIC PEPTIDE (08/19/2024 8:01 AM RADIOLOGY RN) Only the most recent of2 resultswithin the time period is included. PRO-B TYPE NATRIURETIC PEPTIDE 907(H) <125 PG/ML 08/19/2024 8:27 AM RADIOLOGY RN [facility] Comment: CUT POINTS ESTABLISHED BY INTERNATIONAL [employer]LL[employer] ON NT PROBNP (ICON) STUDY (2006). AGE INDEPENDENT: <300 PG/ML HAS A 99% NEGATIVE PREDICTIVE VALUE FOR EXCLUDING ACUTE CHF <50 YEARS: >450 PG/ML IS CONSISTENT WITH ACUTE CHF 50-75 YEARS: >900 PG/ML IS CONSISTENT WITH ACUTE CHF >75 YEARS: >1800 PG/ML IS CONSISTENT WITH ACUTE CHF IN PATIENTS WITH RENAL INSUFFICIENCY (GFR <60), >1200 PG/ML YIELDS A DIAGNOSTIC SENSITIVITY AND SPECIFICITY OF 89% AND 72% FOR ACUTE CHF. 08/19/2024 8:01 AM RADIOLOGY RN Marciano Mora DO LABORATORY Final Result [facility] [address] [place] [address], * (ABNORMAL) COMPREHENSIVE METABOLIC PANEL (08/19/2024 8:01 AM [facility]) Only the most recent of3 resultswithin the time period is included. SODIUM S/P/B 143 136 - 145 MMOL/L 08/19/2024 8:27 AM [facility] POTASSIUM S/P/B 4.8 3.5 - 5.1 MMOL/L 08/19/2024 8:27 AM [facility] Comment:SLIGHT HEMOLYSIS, RE SULT MAY BE AFFECTED. CHLORIDE S/P/B 106 98 - 107 MMOL/L 08/19/2024 8:27 AM [facility] CO2 30.2 21.0 - 32.0 MMOL/L 08/19/2024 8:27 AM [facility] GLUCOSE 77 70 - 99 MG/DL 08/19/2024 8:27 AM [facility] Comment: FASTING GLUCOSE 100 TO 125 MG/DL IS CONSISTENT WITH IMPAIRED FASTING GLUCOSE. FASTING GLUCOSE >125 MG/DL IS CONSISTENT WITH DIABETES. RANDOM GLUCOSE >200 MG/DL WITH HYPERGLYCEMIC SYMPTOMS IS CONSISTENT WITH DIABETES. PER ADA GUIDELINES BUN 37(H) 6 - 24 MG/DL 08/19/2024 8:27 AM [facility] CREATININE S/P/B 1.56(H) 0.55 - 1.02 MG/DL 08/19/2024 8:27 AM [facility] CALCIUM S/P/B 8.5 8.4 - 10.5 MG/DL 08/19/2024 8:27 AM [facility] BILIRUBIN TOTAL S/P/B 0.3 0.2 - 1.0 MG/DL 08/19/2024 8:27 AM [facility] Comment: THIS ASSAY IS NOT RECOMMENDED FOR PATIENTS UNDERGOING TREATMENT WITH ELTROMBOPAG DUE TO THE POTENTIAL FOR FALSELY ELEVATED RESULTS. ALKALINE PHOSPHATASE S/P/B 156(H) 39 - 100 U/L 08/19/2024 8:27 AM [facility] AST 24 15 - 37 U/L 08/19/2024 8:27 AM [facility] ALT 30 14 - 59 U/L 08/19/2024 8:27 AM [facility] TOTAL PROTEIN S/P/B 6.4 6.4 - 8.2 G/DL 08/19/2024 8:27 AM [facility] ALBUMIN S/P/B 2.6(L) 3.4 - 5.0 G/DL 08/19/2024 8:27 AM [facility] ANION GAP 6.8 5.0 - 15.0 MMOL/L 08/19/2024 8:27 AM [facility] OSMOLALITY (CALC) 303 MOSM/KG 025 8:27 AM [facility] Comment:REFERENCE RANGE NOT ESTABLISHED GFR ESTIMATE 41(L) >89 ML/MIN/1. 73 M2 08/19/2024 8:27 AM [facility] GFR NOTES GFR REFERENCE S: 08/19/2024 8:27 AM [facility] Comment: THE ESTIMATED GFR IS CALCULATED USING THE 2020 CKD-EPI EQUATION. THE FOLLOWING CATEGORIES FOR GRADING RENAL FUNCTION ARE RECOMMENDED BY THE INTERNATIONAL SOCIETY OF NEPHROLOGY (KDIGO 2012 CLINICAL PRACTICE GUIDELINE). G1,NORMAL OR HIGH: >89 ml/min/1.73 m2 G2,MILDLY DECREASED: 60-89 ml/min/1.73 m2 G3A,MILDLY TO MODERATELY DECREASED: 45-59 ml/min/1.73 m2 G3B,MODERATELY TO SEVERELY DECREASED: 30-44 ml/min/1.73 m2 G4,SEVERELY DECREASED: 15-29 ml/min/1.73 m2 G5,KIDNEY FAILURE: <15 ml/min/1.73 m2 08/19/2024 8:01 AM RADIOLOGY RN us Marciano Mora DO LABORATORY Final Result [facility] [address] [employer] [place] [address], * (ABNORMAL) CBC W/DIFF AUTOMATED (08/19/2024 8:01 AM RADIOLOGY RN) Only the most recent of3 resultswithin the time period is included. WBC 6.63 4.00 - 10.80 x10'3/uL 08/19/2024 8:09 AM [facility] RBC 3.57(L) 4.10 - 5.40 x10'6/uL 08/19/2024 8:09 AM [facility] HGB 10.5(L) 12.0 - 16.0 G/DL 08/19/2024 8:09 AM [facility] HCT 33.4(L) 36.0 - 47.0 % 08/19/2024 8:09 AM [facility] MCV 93.6 78.0 - 100.0 FL 08/19/2024 8:09 AM [facility] MCH 29.4 27.0 - 31.0 PG 08/19/2024 8:09 AM [facility] MCHC 31.4(L) 33.0 - 36.0 G/DL 08/19/2024 8:09 AM [facility] RDW 13.8 11.5 - 14.5 % 08/19/2024 8:09 AM [facility] PLT 139(L) 150 - 350 x10'3/uL 08/19/2024 8:09 AM [facility] MPV 11.7(H) 7.4 - 10.4 FL 08/19/2024 8:09 AM [facility] CBC COMMENT NORMAL REFERENCE RANGE NOT ESTABLISHED FOR THE PROPORTIONAL LEUKOCYTE DIFFERENTIAL. 08/19/2024 8:09 AM [facility] NEUTROPHILS % 64.1 % 08/19/2024 8:09 AM [facility] LYMPHOCYTES % 23.8 % 08/19/2024 8:09 AM [facility] MONOCYTES % 8.3 % 08/19/2024 8:09 AM [facility] EOSINOPHILS % 2.9 % 08/19/2024 8:09 AM [facility] BASOPHILS % 0.6 % 08/19/2024 8:09 AM [facility] IMMATURE GRANS % 0.3 % 08/19/19 8:09 AM RADIOLOGY RN [facility] NRBC % 0.0 % 08/19/2024 8:09 AM [facility] ABS. NEUTROPHILS 4.25 1.60 - 8.30 x10'3/uL 08/19/2024 8:09 AM [facility] ABS. LYMPHOCYTES 1.58 0.80 - 4.70 x10'3/uL 08/19/2024 8:09 AM [facility] ABS. MONOCYTES 0.55 0.00 - 1.50 x10'3/uL 08/19/2024 8:09 AM [facility] ABS. EOSINOPHILS 0.19 0.00 - 0.40 x10'3/uL 08/19/2024 8:09 AM [facility] ABS. BASOPHILS 0.04 0.00 - 0.20 x10'3/uL 08/19/2024 8:09 AM [facility] ABS. IMMATURE GRANULOCYTES 0.02 0.00 - 0.03 x10'3/uL 08/19/2024 8:09 AM [facility] ABS. NUCLEATED RBC'S 0.00 0.00 - 0.01 x10'3/uL 08/19/2024 8:09 AM [facility] 08/19/2024 8:01 AM RADIOLOGY RN Marciano Mora DO LABORATORY Final Result [facility] [address] [place] [address], * TROPONIN, QUANT (08/19/2024 8:01 AM RADIOLOGY RN) TROPONIN I HIGH SENSITIVITY 14 0 - 51 ng/L 08/19/2024 8:27 AM RADIOLOGY RN [facility] 08/19/2024 8:01 AM RADIOLOGY RN us Marciano Mora DO LABORATORY Final Result Performing Organization Address [facility] de Phone Number [address] [address], * AMYLASE (08/19/2024 8:01 AM RADIOLOGY RN) AMYLASE S/P/B 43 25 - 115 UNITS/L 08/19/2024 8:27 AM RADIOLOGY RN [facility] 08/19/2024 8:01 AM RADIOLOGY RN us Marciano Mora DO LABORATORY Final Result Performing Organization Address [facility] de Phone Number [address] [address], * LIPASE (08/19/2024 8:01 AM RADIOLOGY RN) LIPASE 50 16 - 77 UNITS/L 08/19/2024 8:27 AM RADIOLOGY RN [facility] 08/19/2024 8:01 AM RADIOLOGY RN us Marciano Mora DO LABORATORY Final Result Performing Organization Address [facility] de Phone Number [facility] [address] [place] [phone], * ECG 12 lead (08/19/2024 7:48 AM RADIOLOGY RN) Only the most recent of3 resultswithin the time period is included. 08/19/2024 7:48 AM RADIOLOGY RN Narrative [facility] - 08/19/2024 2:22 PM RADIOLOGY RN ? [facility] ?[address] [place], [place] ??[address] ? Test Date: ?2024-08-19 Pat Name: ? CEM MARSHALL ?Department: ?? 3 ? Room: ? EXAM 404 Gender: ? Female ? Handling Tech: ?? : ?[id number] ? Requested By: MARCIANO MORA Order Number: [id number] ? Reading MD: ?? Zheng Reyes ? Measurements Intervals ?[place] ? Rate: ? 95 ? P: ?47 SC: ? 143 ?QRS: ?-11 QRSD: ? 87 ? T: ?114 QT: ? 350 ? QTc: ?440 ? Interpretive Statements SINUS RHYTHM POSSIBLE LEFT ATRIAL ENLARGEMENT POSSIBLE RIGHT VENTRICULAR CONDUCTION DELAY MODERATE T-WAVE ABNORMALITY, CONSIDER LATERAL ISCHEMIA OLOGY RN Procedure Note Zheng Reyes MD - 08/19/2024 [facility] [address] [place] [address] Test Date: 2024-08-19 Pat Name: CEM MARSHALL Department: 3 Room: EXAM 404 Gender: Female Handling Tech: : [id number] Requested By: MARCIANO MORA Order Number: [id number] Reading MD: Zheng Reyes Measurements Intervals [place] Rate: 95 P: 47 SC: 143 QRS: -11 QRSD: 87 T: 114 QT: 350 QTc: 440 Interpretive Statements SINUS RHYTHM POSSIBLE LEFT ATRIAL ENLARGEMENT POSSIBLE RIGHT VENTRICULAR CONDUCTION DELAY MODERATE T-WAVE ABNORMALITY, CONSIDER LATERAL ISCHEMIA OLOGY RN us Marciano Mora DO ECG ORDERABLES Final Result [facility] * USV CAROTID DUPLEX MANPREET (07/29/2024 11:30 AM RADIOLOGY RN) Anatomical Region Laterality Modality Neck Ultrasound 08/01/2024 12:3 4 PM RADIOLOGY RN Impressions 08/01/2024 12:39 PM RADIOLOGY RN IMPRESSION: Since October, increase in the ICA/CCA velocity ratio in the right carotid, which is now 2. This places the range of stenosis to be 50-69%. Since October, increase in the velocity ratio on the left as well, but remains less than 2. Therefore, stenosis is considered less than 50%, but approaching 50%. Ordered By: RAÚL AVALOS Interpreted By: Pan Freedman MD, 08/01/2024 12:34 PM Narrative 08/01/2024 12:39 PM RADIOLOGY RN [address] [place] [address] EXAMINATION: BILATERAL CAROTID ARTERY DOPPLER ULTRASOUND EXAM DATE: 07/29/2024 11:30 AM HISTORY: Carotid stenosis bruit. CVA. TECHNIQUE: Grayscale, color-flow, and spectral Doppler ultrasound examination of the common carotid arteries, the internal carotid arteries, and the vertebral arteries was performed. Percent carotid stenosis is assessed per NASCET criteria. COMPARISON: 10/14/2023 FINDINGS: Right side: A mild plaque in the distal common carotid artery and bifurcation. CCA PSV (cm/s) 60 ICA PSV 119 PSV ratio 2 (was 1.59 in October) Vertebral artery antegrade flow ECA 119 Left side: A mild plaque in the distal common carotid artery and bifurcation. CCA PSV ??73 ICA PSV 120 PSV ratio 1.6 (was 1.25 in October) Vertebral artery antegrade flow ECA 93 Procedure Note Pan Freedman MD - 08/01/[address] [place] [address] EXAMINATION: BILATERAL CAROTID ARTERY DOPPLER ULTRASOUND EXAM DATE: 07/29/2024 11:30 AM HISTORY: Carotid stenosis bruit. CVA. TECHNIQUE: Grayscale, color-flow, and spectral Doppler ultrasoundexamination of the common carotid arteries, the internal carotid arteries,and the vertebral arteries was performed. Percent carotid stenosis isassessed per NASCET criteria. COMPARISON: 10/14/2023 FINDINGS: Right side: A mild plaque in the distal common carotid artery and bifurcation. CCA PSV (cm/s) 60 ICA PSV 119 PSV ratio 2 (was 1.59 in October) Vertebral artery antegrade flow ECA 119 Left side: A mild plaque in the distal common carotid artery and bifurcation. CCA PSV 73 ICA PSV 120 PSV ratio 1.6 (was 1.25 in October) Vertebral artery antegrade flow ECA 93 IMPRESSION: Since October, increase in the ICA/CCA velocity ratio in the right carotid,which is now 2. This places the range of stenosis to be 50-69%. Since October, increase in the velocity ratio on the left as well, butremains less than 2. Therefore, stenosis is considered less than 50%, butapproaching 50%. Ordered By: RAÚL AVALOS Interpreted By: Pan Freedman MD, 08/01/2024 12:34 PM us Raúl Avalos CLIENT APPLICATION SUPPORT ENGINEER US VASC Fin al Result * MRI BRAIN WO CON (07/29/2024 10:59 AM RADIOLOGY RN) Anatomical Region Laterality Modality Head Magnetic Resonan ce 08/01/2024 12:3 9 PM RADIOLOGY RN Impressions 08/01/2024 12:44 PM RADIOLOGY RN IMPRESSION: No evidence of acute infarct, hematoma, or intracranial mass lesion. There are minimal foci of left periventricular white matter FLAIR hyperintensity. Differential would be chronic small vessel ischemic disease change or demyelinating process. These can be associated with migraines or memory issues. Ordered By: RAÚL AVALOS Interpreted By: Pan Freedman MD, 08/01/2024 12:39 PM Narrative 08/01/2024 12:44 PM RADIOLOGY RN [address] [place] [address] INDICATION: DX CVA, PT STATES SHE MIGHT HAVE HAD A STROKE APPROX 2 WEEKS AGO EXAMINATION: MRI of the brain without contrast. TECHNIQUE: Sagittal and axial T1, and axial T2, FLAIR, gradient (T2*), and DWI images with ADC map reconstructions were obtained. COMPARISON: CT head 03/26/2023. FINDINGS: There is no evidence of restricted diffusion or acute infarct. There is no evidence of intracranial mass lesion, mass effect, or midline shift. There are minimal foci of left periventricular white matter FLAIR hyperintensity. No significant enlargement of the ventricles and hemispheric sulci. The proximal portions of the major intracranial arterial flow voids are grossly patent. No abnormal extra-axial collections identified. Gradient images reveal no hematoma. The craniocervical junction, sellar content, and pineal region appear unremarkable. Mastoid air cells and paranasal sinuses are unremarkable. Right globe prosthetic change. Intact left globe. Procedure Note Pan Freedman MD - 08/01/2024 [facility] [address] [place] [address] INDICATION: DX CVA, PT STATES SHE MIGHT HAVE HAD A STROKE APPROX 2 WEEKSAGO EXAMINATION: MRI of the brain without contrast. TECHNIQUE: Sagittal and axial T1, and axial T2, FLAIR, gradient (T2*), andDWI images with ADC map reconstructions were obtained. COMPARISON: CT head 03/26/2023. FINDINGS: There is no evidence of restricted diffusion or acute infarct. There is noevidence of intracranial mass lesion, mass effect, or midline shift. Thereare minimal foci of left periventricular white matter FLAIRhyperintensity. No significant enlargement of the ventricles andhemispheric sulci. The proximal portions of the major intracranialarterial flow voids are grossly patent. No abnormal extra-axialcollections identified. Gradient images reveal no hematoma. Thecraniocervical junction, sellar content, and pineal region appearunremarkable. Mastoid air cells and paranasal sinuses are unremarkable.Right globe prosthetic change. Intact left globe. IMPRESSION: No evidence of acute infarct, hematoma, or intracranial mass lesion. There are minimal foci of left periventricular white matter FLAIRhyperintensity. Differential would be chronic small vessel ischemicdisease change or demyelinating process. These can be associated withmigraines or memory issues. Ordered By: RAÚL AVALOS Interpreted By: Pan Freedman MD, 08/01/2024 12:39 PM Raúl Avalos CLIENT APPLICATION SUPPORT ENGINEER MRI Fin al Result * ECG (07/10/2024 12:00 AM RADIOLOGY RN) 07/10/2024 us Doc Pccl Scanned SCANNING Final Result [facility] * IMAGE STUDY (07/10/2024) Anatomical Region Laterality Modality Other us Doc Pccl Scanned SCANNING Edited Result - Final * CBC, MANUAL DIFF (07/10/2024) Pathologist [facility] WBC 7.3 HGB 11.9 HCT 36.7 PLT 156 Narrative Resulting Agency Comment [facility] us Default History Genericprovider LABORATORY Final Result * (ABNORMAL) BASIC METABOLIC PANEL (06/28/2024 12:43 PM RADIOLOGY RN) Only the most recent of2 resultswithin the time period is included. Pathologist [facility] SODIUM S/P/B 141 136 - 145 MMOL/L 06/28/2024 1:04 PM [facility] POTASSIUM S/P/B 4.4 3.5 - 5.1 MMOL/L 06/28/2024 1:04 PM [facility] CHLORIDE S/P/B 102 98 - 107 MMOL/L 06/28/2024 1:04 PM [facility] CO2 29.1 21.0 - 32.0 MMOL/L 06/28/2024 1:04 PM [facility] GLUCOSE 133(H) 70 - 99 MG/DL 06/28/2024 1:04 PM [facility] Comment: FASTING GLUCOSE 100 TO 125 MG/DL IS CONSISTENT WITH IMPAIRED FASTING GLUCOSE. FASTING GLUCOSE >125 MG/DL IS CONSISTENT WITH DIABETES. RANDOM GLUCOSE >200 MG/DL WITH HYPERGLYCEMIC SYMPTOMS IS CONSISTENT WITH DIABETES. PER ADA GUIDELINES BUN 29(H) 6 - 24 MG/DL 06/28/2024 1:04 PM [facility] CREATININE S/P/B 1.41(H) 0.55 - 1.02 MG/DL 06/28/2024 1:04 PM [facility] CALCIUM S/P/B 8.8 8.4 - 10.5 MG/DL 06/28/2024 1:04 PM [facility] ANION GAP 9.9 5.0 - 15.0 MMOL/L 06/28/2024 1:04 PM [facility] OSMOLALITY (CALC) 300 MOSM/KG 024 1:04 PM [facility] Comment:REFERENCE RANGE NOT ESTABLISHED GFR ESTIMATE 46(L) >89 ML/MIN/1. 73 M2 06/28/2024 1:04 PM RADIOLOGY RN [facility] GFR NOTES GFR REFERENCE S: 06/28/2024 1:04 PM RADIOLOGY RN [facility] Comment: THE ESTIMATED GFR IS CALCULATED USING THE 2020 CKD-EPI EQUATION. THE FOLLOWING CATEGORIES FOR GRADING RENAL FUNCTION ARE RECOMMENDED BY THE INTERNATIONAL SOCIETY OF NEPHROLOGY (KDIGO 2012 CLINICAL PRACTICE GUIDELINE). G1,NORMAL OR HIGH: >89 ml/min/1.73 m2 G2,MILDLY DECREASED: 60-89 ml/min/1.73 m2 G3A,MILDLY TO MODERATELY DECREASED: 45-59 ml/min/1.73 m2 G3B,MODERATELY TO SEVERELY DECREASED: 30-44 ml/min/1.73 m2 G4,SEVERELY DECREASED: 15-29 ml/min/1.73 m2 G5,KIDNEY FAILURE: <15 ml/min/1.73 m2 06/28/2024 12:4 3 PM RADIOLOGY RN us Lorenza Inman MD [place]AT[place] [address], * (ABNORMAL) SED RATE, ERYTHROCYTE (ESR) (06/10/2024 4:33 PM CDT) ESR 44(H) 0 - 20 MM/HR 06/10/2024 4:47 PM CDT [facility] 06/10/2024 4:33 PM CDT Tiffanie MOONP LABORATORY Final Result Performing Organization Address City/[facility]/ZIP Co de Phone Number [facility] [address] [place] [address], * C-REACTIVE PROTEIN (06/10/2024 4:33 PM CDT) C-REACTIVE PROTEIN 0.08 <0.30 mg/dL 06/10/2024 4:52 PM CDT [facility] 06/10/2024 4:33 PM CDT Tiffanie MOONP LABORATORY Final Result Performing Organization Address [facility]/ZIP Co de Phone Number [facility] [address] [place] [address], [place] [phone] * LIPID PANEL (09/15/2023 9:04 AM RADIOLOGY RN) CHOLESTEROL 181 MG/DL 09/15/2023 12:44 PM RADIOLOGY RN [facility] Comment:DESIRABLE: <200 TRIGLYCERIDES 196 MG/DL 09/15/2023 12:44 PM RADIOLOGY RN [facility] Comment:150-199 BORDERLINE H IGH HDL 55 >49 MG/DL 09/15/2023 12:44 PM RADIOLOGY RN [facility] LDL-C 87 MG/DL 09/15/2023 12:44 PM RADIOLOGY RN [facility] Comment:<100 OPTIMAL VLDL CALCULATION 39 MG/DL 09/15/19 12:44 PM RADIOLOGY RN [facility] Comment:REFERENCE RANGE NOT ESTABLISHED CHOL/HDL RATIO 3.3 09/15/2023 12:44 PM RADIOLOGY RN [facility] Comment:REFERENCE RANGE NOT ESTABLISHED LDL/HDL 1.6 09/15/2023 12:44 PM RADIOLOGY RN [facility] Comment:REFERENCE RANGE NOT ESTABLISHED NON HDL CHOLESTEROL 126 MG/DL 09/15/2023 12:44 PM RADIOLOGY RN [facility] Comment:REFERENCE RANGE NOT ESTABLISHED 09/15/2023 9:04 AM RADIOLOGY RN Rsoe Conn MD LABORATORY Final Result [facility] [address] [place] [address], [place] [phone] [id number] from Last 3 Months or Most Recently Relevant to Health Maintenance Insurance [facility] MEDICAID Care Teams Soft Tile Setter Relationship Specialty Start Date End Date Ace Honeycutt MD [address] [place] [phone] PCP - General FAMILY PRACTICE 04/29/24 Rose Conn MD [address] [place] [address] Consulting Physician CARDIOVASCULAR DISEASE 09/07/23 Keith Goodwin MD [address] [place] [address] Consulting Physician INTERNAL MEDICINE 09/22/23
--- OUTSIDE RECORDS SUMMARY | 2024-09-10 12:02 | XMS_ITS | Referral Summary ---
Author Organization [facility] Address [address] [place] [address] Care Team Providers Care Construction Scheduler Name Role Phone Clement Pinto APRN-TONG CARRIER Primary Care Provider Source Comments [facility],non-owned Affiliates and Associated Physician Practices is amultiple site organization consisting of ambulatory clinics and hospital sitesin [place], [place], [place] and [place]. This disclosure is being madepursuant to the Care Everywhere program and may not contain all information available regarding this patient. Last updated [facility] Allergies Active Allergy Reactions Criticality Noted Date [...] by mouth once daily Active HYDROcodone-acetam inophen ([place]) 5-325 MG tabletIndications: Post-operative state Take 1 [...] 05/13/2023 8:52 AM CDT Plan of Treatment Not on file Insurance Payer Benefit Plan / Group Subscriber ID Effective Dates Phone Address Type MCKAYLAEM ANTHEM PATHWAY/PATHW AY X [id number] 2016-Pres ent [address] [place] [address] PPO ANTHEM ANTHEM MEDICARE ADV PPO/HMO [id number] 2022-Pres ent [address] [place] [address] Medicare-Devine aged Care [place] - [facility] [id number] 04/10/2023-Pres ent [address] [place] [address] Medicaid [place] Care Teams Construction Scheduler Relationship Specialty Start Date End Date Clement Pinto APRN-TONG CARRIER [address] [place] [phone] PCP - General Nurse Practitioner Family 05/13/23
[2024-09-10 12:05] VITALS: O2SAT 97
--- NOTE | 2024-09-10 12:10 | PC.NURSE ---
Covid culture sent to lab
--- NOTE | 2024-09-10 12:12 | ED_ITS ---
HPI - Fall General Chief Complaint: Upper Respiratory Infection Stated Complaint: fell Time Seen by Provider: 09/10/24 12:03 Source: patient Mode of arrival: ambulatory Limitations: no limitations History of Present Illness HPI Narrative: 48-year-old female with a history diabetes, dyslipidemia had a fall this morning and presents to the ED with -- left lower chest wall pain which is made worse by coughing and deep breathing -- nasal and chest congestion -- nonproductive cough complaint: fall Onset (ago): hour(s) ( 4 hours ago) Fall from: standing Fall witnessed: no Place fall occurred: home Loss of consciousness: none Prolonged down time: no Symptoms prior to fall: none Context: tripped/slipped Location of injury: chest Severity: severe Quality: sharp and stabbing Associated symptoms (after fall): denies Related Data Home Medications ?Medication ?Instructions ?Recorded ?Confirmed ?Last Taken ?Type atorvastatin 80 mg tablet 80 mg PO DAILY 07/26/23 01/02/24 08/28/23 History bumetanide 1 mg tablet See Rx Instructions .Route .COMPLEX 07/26/23 01/02/24 08/28/23 History celecoxib 200 mg capsule 200 mg PO BID 07/26/23 01/02/24 08/28/23 History dapagliflozin propanediol 10 mg 10 mg PO DAILY 07/26/23 01/02/24 08/28/23 History tablet (Farxiga) insulin detemir U-100 100 unit/mL 46 unit subcut DAILY 07/26/23 01/02/24 08/28/23 History subcutaneous solution (Levemir U-100 Insulin) insulin lispro 100 unit/mL See Rx Instructions .Route .COMPLEX 07/26/23 01/02/24 08/28/23 History subcutaneous solution (Humalog U-100 Insulin) metoprolol succinate 25 mg 25 mg PO DAILY 07/26/23 01/02/24 08/28/23 History tablet,extended release 24 hr aspirin 81 mg PO DAILY 10/29/23 01/02/24 Unknown History ezetimibe 10 mg tablet 10 mg PO DAILY 10/29/23 01/02/24 Unknown History gabapentin 400 mg capsule See Rx Instructions .Route .COMPLEX 10/29/23 01/02/24 Unknown History Allergies Allergy/AdvReac Type Severity Reaction Status Date / Time cephalexin (From Keflex) Allergy Unknown Unknown Verified 09/10/24 12:02 codeine Allergy Unknown Verified 09/10/24 12:02 erythromycin base Allergy Unknown Verified 09/10/24 12:02 Review of Systems 2 Review of Systems: All systems reviewed & are unremarkable except as noted in HPI and below Constitutional: Constitutional: Reports as per HPI and Reports no additional constitutional complaints Eyes: Eyes: Reports as per HPI and Reports no additional eye complaints ENT: Reports system reviewed and no additional complaints, except as documented and Reports as per HPI Cardiovascular: Cardiovascular: Reports as per HPI and Reports no additional cardiovascular complaints Comments: left posterior chest wall pain Respiratory: Respiratory: Reports as per HPI and Reports no additional respiratory complaints Gastrointestinal: Gastrointestinal: Reports as per HPI and Reports no additional gastrointestinal complaints Genitourinary: Genitourinary: Reports no additional female genitourinary complaints and Reports as per HPI Musculoskeletal: Musculoskeletal: Reports no additional musculoskeletal complaints and Reports as per HPI Comments: left posterior chest wall pain Integumentary/Breasts: Skin/Breast: Reports system reviewed and no additional complaints, except as docu and Reports as per HPI Comments: abrasion left posterior chest wall he Neurologic: Reports system reviewed and no additional complaints, except as documented and Reports as per HPI Psychiatric: Psychiatric: Reports no additional psychiatric complaints and Reports as per HPI Endocrine: Endocrine: Reports no additional endocrine complaints and Reports as per HPI Hematologic/Lymphatic: Hematologic/Lymphatic: Reports no additional hematologic/lymphatic complaints and Reports as per HPI Allergic/Immunologic: Allergic/Immunologic: Reports no additional allergic/immunologic complaints and Reports as per HPI [facility] Past Medical History Medical History (Updated 09/10/24 @ 14:43 by Tyron Schaefer MD) Dyslipidemia Diabetes mellitus Exam 2 Narrative: afebrile. Oxygen saturation of 97% on room air. Const: General: no acute distress Nutritional Appearance: well nourished Orientation/consciousness: patient oriented x3 Limitations: no limitations HENMT: Head: normal to inspection Ears: external ears normal F pankaj/Nose/Sinus: Normal external nose present Face and sinus: normal facial exam Mouth: Yes Normal oral and palatal mucosa present Throat: posterior oropharynx normal Eyes: Conjunctivae: conjunctivae normal Pupils: Equal, round and reactive pupils present EOM: EOMs intact bilaterally Direct Ophthalmoscopy: no photophobia Neck: Neck: normal visual inspection, no lymphadenopathy and no meningeal signs Chest: Chest palpation & inspection: normal inspection of the chest and abnormal inspection of the chest Resp: Effort & Inspection: normal respiratory effort Auscultation: clear to auscultation bilaterally Other: Abrasion left posterior chest wall. Tenderness on palpation of left lower ribs. Cardio: Rate: regular rate Rhythm: regular rhythm GI: GI Palp: Yes Soft to palpation Auscultation: normal bowel sounds O ther: No tenderness/ rigidity /rebound. : General: Yes no CVA tenderness Back/Spine/Pelvis: Back: CVA tenderness Skin: General skin exam: normal color Rashes: no rashes Wounds: no wounds Neuro: General: patient oriented x3, moves all extremities, no meningeal signs, no focal motor deficits and CN's II-XI intact bilaterally Cranial nerves: Yes Nystagmus not present Speech: normal speech Gait exam (Neuro): Normal gait present Extrem: General: normal to inspection and no clubbing, cyanosis or edema Psych: Mental Status: mental status grossly normal Affect: normal affect Attitude: cooperative Course Course Emergency Course: Accidental fall left posterior chest wall pain-- left 7th rib fracture upper respiratory tract infection-- influenza a worsening renal function-- discontinue celecoxib Vital Signs Vital signs: Vital Signs Temperature 36.8 C 09/10/24 12:00 Pulse Rate 100 09/10/24 12:00 Respiratory Rate 18 09/10/24 12:00 Blood Pressure 107/70 09/10/24 12:00 Pulse Oximetry 97 09/10/24 12:00 Oxygen Delivery Room Air 09/10/24 12:00 Temperature 36.8 C 09/10/24 12:00 Pulse Rate 106 H 09/10/24 14:00 Respiratory Rate 16 09/10/24 14:00 Blood Pressure 122/83 09/10/24 14:00 Pulse Oximetry 100 09/10/24 14:00 Oxygen Delivery Room Air 09/10/24 13:00 MDM - Fall MDM Narrative Medical decision making narrative: accidental fall with left 7th rib fracture Transaminitis-- contain continue to monitor LFTs. Stop statins if LFT continued to rise. acute on chronic renal failure-- discontinued celecoxib. Start Cozaar 25 even though patient does not have any proteinuria. patient has worsening renal function. influenza a Fungus noted in the urine most likely secondary to vaginitis. Will give her a dose of Diflucan 150 mg. Differential Diagnosis Differential diagnosis: Likely dislocation of shoulder region and compression fracture Medical Records Attestation: I reviewed the patient's medical records. Lab Data Attestation: I reviewed the patient's lab results. 09/10/24 12:41 09/10/24 12:41 Labs: Lab Results 09/10/24 09/10/24 09/10/24 Range/Units 12:04 12:41 14:00 WBC 5.8 (4.8-10.8) K/mm3 RBC 3.94 L (4.20-5.40) M/mm3 Hgb 11.4 L (12.0-15.0) g/dL Hct 37.2 (35.0-49.0) % MCV 94.4 (78.0-102.0) fL MCH 28.9 (27.0-31.0) pg MCHC 30.6 L (32-36) g/dL RDW 14.0 (11.6-14.4) % Plt Count 132 L (150-420) K/mm3 MPV 12.2 H (9.2-11.8) fl Immature Gran % (Auto) 0.5 H (0.0-0.0) % Neut % (Auto) 80.9 H (50.0-70.0) % Lymph % (Auto) 6.7 L (18.0-42.0) % [place] % (Auto) 10.5 (2.0-11.0) % Eos % (Auto) 0.5 L (1.0-6.0) % Baso % (Auto) 0.9 (0.0-1.0) % Lymph # (Auto) 0.39 L (1.10-4.50) K/mm3 [place] # (Auto) 0.61 (0.10-0.90) K/mm3 Eos # (Auto) 0.03 (0.02-0.50) K/mm3 Baso # (Auto) 0.05 (0.00-0.10) K/mm3 Abs Immat Gran (auto) 0.03 H (0.00-0.00) K/mm3 Absolute Neuts (auto) 4.72 (1.70-7.20) K/mm3 Absolute Nucleated RBC 0.00 (0.00-0.00) K/mm3 Nucleated RBC % 0.0 (0-0.0) % Sodium 141 (136-145) mmol/L Potassium 4.7 (3.5-5.1) mmol/L Chloride 102 (98-108) mmol/L Carbon Dioxide 27 (21-32) mmol/L Anion Gap 12 (4-12) mmol/L BUN 36 H (7-18) mg/dL Creatinine 1.61 H (0.55-1.02) mg/dL Estim Creat Clear Calc 44 ml/min Estimated GFR 34 L (59 - ) Glucose 185 H (70-99) mg/dL Calculated Osmolality 305 H (285-295) mOsm/kg Calcium 8.8 (8.5-10.1) mg/dL Total Bilirubin 0.3 (0.00-1.00) mg/dL AST 103 H (15-37) U/L ALT 89 H (14-59) U/L Alkaline Phosphatase 279 H (46-116) U/L Total Protein 6.9 (6.4-8.2) g/dL Albumin 3.0 L (3.4-5.0) g/dL Urine Color Light yellow (Yellow) Urine Appearance Cloudy A (Clear) Urine pH 6.0 (5.0-8.0) Ur Specific [place] 1.010 (1.010-1.020) Urine Protein Negative (Negative) Urine Glucose (UA) 3+ H (Negative) Urine Ketones Negative (Negative) Ur Blood (Man) Negative (Negative) Urine Nitrate Positive H (Negative) Urine Bilirubin Negative (Negative) Urine Urobilinogen 0.2 (0.2-1.0) mg/dL Leukocyte Esterase Rfl Negative (Negative) LEMUEL/UL Ur Squamous Epith Cells Moderate H (Few) /hpf Amorphous Sediment Heavy H (None) Urine Bacteria 4+ H (None) /hpf Urine Mucus Few H /lpf Urine Yeast (Budding) Present H (None) /hpf Influenza A (RT-PCR) Positive A (Negative) Influenza B (RT-PCR) Negative (Negative) RSV (RT-PCR) Negative (Negative) SARS-CoV-2 RNA (RT-PCR) Negative (Negative) Discharge Plan Discharge Clinical Impression: Influenza A, Transaminitis Acute on chronic kidney failure Qualifiers: Acute renal failure type: unspecified Chronic kidney disease stage: stage 3 (moderate) Chronic kidney disease stage 3 subtype: stage 3b (GFR 30-44) Q ualified Code(s): N17.9 - Acute kidney failure, unspecified Accidental fall Qualifiers: Encounter type: initial encounter Qualified Code(s): W19.XXXA - Unspecified fall, initial encounter Left rib fracture Qualifiers: Encounter type: initial encounter Rib fracture type: single rib Fracture type: closed Qualified Code(s): S22.32XA - Fracture of one rib, left side, initial encounter for closed fracture Vaginitis Qualifiers: Chronicity: acute Qualified Code(s): N76.0 - Acute vaginitis Patient Disposition: Home, Self-Care Condition: Stable Instructions: Antibiotic Form, Chronic Kidney Disease (ED), Rib Fracture (ED), Influenza (ED), Transaminitis (ED) Patient Language: Mosotho Prescriptions: New losartan [Cozaar] 25 mg tablet 25 mg PO DAILY Qty: 30 0RF fluconazole 150 mg tablet 150 mg PO DAILY Qty: 1 1RF Rx Instructions: administer on day 1 of therapy No Action gabapentin 400 mg capsule See Rx Instructions .ROUTE .COMPLEX Rx Instructions: Take 1 capsule in the morning Take 1 capsule in the afternoon Take 3 capsules at bedtime ezetimibe 10 mg tablet 10 mg PO DAILY aspirin 81 mg PO DAILY celecoxib 200 mg Capsule 200 mg PO BID atorvastatin 80 mg Tablet 80 mg PO DAILY bumetanide 1 mg Tablet See Rx Instructions .ROUTE .COMPLEX Rx Instructions: Take 2 tabs in mornings and 1 every evening metoprolol succinate 25 mg Tablet Extended Release 24 Hr 25 mg PO DAILY insulin lispro [Humalog U-100 Insulin] 100 unit/mL Solution See Rx Instructions .ROUTE .COMPLEX Rx Instructions: 8 units + SSI TID c meals Levemir U-100 Insulin 100 unit/mL Solution 46 unit SUBCUT DAILY dapagliflozin propanediol [Farxiga] 10 mg Tablet 10 mg PO DAILY promethazine 12.5 mg tablet 12.5 mg PO Q8H PRN (Reason: nausea and vomiting) Qty: 10 0RF Rx Instructions: 1-2 tabs per dose clindamycin HCl 300 mg capsule 300 mg PO Q6H 10 Days Qty: 40 0RF docusate sodium [Colace] 100 mg capsule 100 mg PO BID PRN (Reason: constipation) Qty: 14 0RF Follow-up/Referrals: Lance,MELLISSA Kent [Primary Care Provider] - Time of Disposition: 14:44
[2024-09-10 12:45] LABS: SARS-CoV-2 RNA PCR Negative (Negative)
[2024-09-10 12:46] LABS: Influenza A QL RT-PCR Positive (Negative); Influenza B QL RT-PCR Negative (Negative); RSV RNA, RT-PCR Negative (Negative)
[2024-09-10 12:46] LABS: Basophils Absolute Auto 0.05 K/mm3 (0.00-0.10); Basophils Percent Auto 0.9 % (0.0-1.0); Eosinophils Absolute Auto 0.03 K/mm3 (0.02-0.50); Eosinophils Percent Auto 0.5 % (1.0-6.0); Hematocrit 37.2 % (35.0-49.0); Hemoglobin 11.4 g/dL (12.0-15.0); Immature Granulocyte Absolute 0.03 K/mm3 (0.00-0.00); Immature Granulocyte Percent A 0.5 % (0.0-0.0); Lymphocytes Absolute Auto 0.39 K/mm3 (1.10-4.50); Lymphocytes Percent Auto 6.7 % (18.0-42.0); Mean Corpuscular HGB Conc 30.6 g/dL (32-36); Mean Corpuscular Hemoglobin 28.9 pg (27.0-31.0); Mean Corpuscular Volume 94.4 fL (78.0-102.0); Mean Platelet Volume 12.2 fl (9.2-11.8); Monocytes Absolute Auto 0.61 K/mm3 (0.10-0.90); Monocytes Percent Auto 10.5 % (2.0-11.0); Neutrophils Absolute Auto 4.72 K/mm3 (1.70-7.20); Neutrophils Percent Auto 80.9 % (50.0-70.0); Platelet Count Result 132 K/mm3 (150-420); Red Blood Count 3.94 M/mm3 (4.20-5.40); White Blood Count 5.8 K/mm3 (4.8-10.8)
--- OUTSIDE RECORDS SUMMARY | 2024-09-10 12:48 | XMS_ITS | Clinical Summary ---
Author Organization [employer] [facility] Address [address] [place] [address] Phone Care Team Providers Care Global Marketing Operations Manager Name Role Phone Arnoldo Gary MD Primary Care Provider [phone] Allergies Active Allergy Reactions Criticality Noted Date [...] migh t be different from the original. LUMBER CARRIER: DR. 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 Gender Identity Not on file Sexual Orientation [...] (#1) 2024 Medical Devices Implanted Type Area Shower Screen Installer Device Identifier Shelf Expiration Date Model / Serial / Lot Tfna Fenestrated Screw 90mm Implanted:Qty: 1 on 03/27/2021 by Bob Deras MD at [facility] Screw Left: Hip [employer] [facility] 02/06/2031 04.038.19 0 S / / [id number] Screw Loc Stardrv 5x62mm Strl 04.005.552s - Sload 23 Implanted:Qty: 1 on 03/27/2021 by Bob Deras MD at [facility] Screw Left: Hip [employer] 04.005.55 2 S / LOAD 03/14/21 11mm/125deg Ti Js Tfna 380mm/Left Implanted:Qty: 1 on 03/27/2021 by Bob Deras MD at [facility] Left: Hip [employer] [facility] 01/07/2030 04.037.12 9 S / / [id number] Description:All Synthes comp onents are processed on requisition, [id number]. Procedures Procedure Name Priority Date/Time Associated Diagnosis Comments HEMOGLOBIN A1C Stat 04/25/2022 3:22 AM CDT LIPID PANEL Routine 04/20/2021 5:30 AM CDT MICROALBUMIN/CREATIN INE RATIO, RANDOM UR Routine 06/26/2014 Diabetes mellitus (CMS/[facility]) from Last 3 Months or Most Recently Relevant to Health Maintenance Results * (ABNORMAL) HEMOGLOBIN A1C (04/25/2022 3:22 AM CDT) HEMOGLOBIN A1C 8.2(H) <=5.6 % 04/25/2022 4:13 AM CDT [facility] - [place] EST. AVG GLUCOSE, A1C 189 mg/dL 04/25/2022 4:13 AM CDT [facility] Blood Venipuncture / Unknown 04/25/2022 3:22 AM CDT 04/25/2022 3:43 AM CDT Narrative [facility] - 04/25/2022 4:13 AM CDT HGB A1C INTERPRETATION NORMAL: ? <5.7% PRE-DIABETES: 5.7 - 6.4% DIABETES: ? 6.5% OR GREATER us Alphonse Samson MD CHEMISTRY ORDERABLES Final Result [facility] CLIA # [id number] [facility] [address] [place] [address] * (ABNORMAL) LIPID PANEL (04/20/2021 5:30 AM CDT) [facility] Signature CHOLESTEROL 166 <200 mg/dL 04/20/2021 6:55 AM CDT [facility] - . [facility] TRIGLYCERIDE 83 <150 mg/dL 04/20/2021 6:55 AM T [facility] - . [place] HDL 40 40 - 59 mg/dL 04/20/2021 6:55 AM T [facility] - [facility] LDL CALCULATED 109(H) <100 mg/dL 04/20/2021 6:55 AM T [facility] - . [facility] NON-HDL CHOLESTEROL 126 <130 mg/dL 04/20/2021 6:55 AM T [facility] - [facility] Blood Venipuncture / Unknown 04/20/2021 5:30 AM CDT 04/20/2021 6:21 AM CDT Narrative [facility] - [facility] - 04/20/2021 [...] Reference Ranges for Lipid Panels (NCEP/AMA) . [facility] Tawana Kelly MD CHEMISTRY ORDERABLES Final Result [facility] - [facility] CLIA# [id number] [address] [place] [address] * MICROALBUMIN/CREATININE RATIO, RANDOM UR (06/26/2014) Urine specimen (specimen) Orquidea Delgado MD URINE ORDERABLES Final Result [facility] [place] CLIA # [id number] [address] [place] [address] from Last 3 Months or Most Recently Relevant to Health Maintenance Additional Health Concerns Infection Onset Date Last Indicated MRSA Comment:hx MRSA documented per 12/22/17 infectious disease screening form - Cierra Becker RN 12/24/2017 05/09/[address] [place] [address] [place] [address] MEDICAID [facility] MEDICARE Advance Directives For more information, please contact: [phone] * Full Code (Latest Code Status on File) Date Activated Date Inactivated Comments 04/25/2022 2:46 AM 04/29/2022 5:00 PM * Full Code Date Activated Date Inactivated Comments 05/08/2021 5:35 PM 05/24/2021 5:02 PM * Full Code Date Activated Date Inactivated Comments 03/27/2021 7:30 AM 05/08/2021 5:20 PM Care Teams Global Marketing Operations Manager Relationship Specialty Start Date End Date Arnoldo Gary MD [address] [place] [address] PCP - General Internal Medicine 03/27/21
--- OUTSIDE RECORDS SUMMARY | 2024-09-10 12:48 | XMS_ITS | Encounter Summary ---
Author Organization [facility] Healthcare Address [address] [place] [address] Care Team Providers Care Mining Support Worker Name Role Phone Arnoldo Gary MD Primary Care Provider [phone] Miscellaneous, Not In File Primary Care Provider Unavailable Donte Lucas Primary Care Provider Encounter Details Date Type Department Care Team (Late st Contact Info) Description 09/26/2021 Telephone [facility] Case Management [address] [place] [address] Leydi Bush, RN Social History Tobacco Use [...] often do you attend chur ch or christianity services? 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
--- OUTSIDE RECORDS SUMMARY | 2024-09-10 12:48 | XMS_ITS | Referral Summary ---
Author Organization [facility] er Address [address] [place] [address] Care Team Providers Care Geophysical Party Chief Name Role Phone Donte Lucas Primary Care Provider Encounters Date Type Department Care Team Description 08/26/2024 9:30 AM CERTIFIED NURSES' AIDE Office Visit [facility] Neurology [address] [place] [phone] Ethel, Kaleb Adam MD Cerebrovascular accident [...] HS, # 150 cap, 2 Refill(s), Pharmacy: [facility], 165.1, 10/03/20 13:50:00 CERTIFIED NURSES' AIDE, Height/Length Measured, cm, 65.1, 10/03/20 13:55:00 CERTIFIED NURSES' AIDE, Weight Dosing, kg 1 Active empagliflozin (JARDIANCE) [...] injection Inject 50 Units under the skin correspondence school instructor before breakfast 3 Active insulin glargine (BASAGLAR) 100 unit/mL (3 mL) pen for injection See Instructions, 32 units daily, # 15 mL, 3 Refill(s), Pharmacy: [facility], 165.1, 10/03/20 13:50:00 CERTIFIED NURSES' AIDE, Height/Length Measured, cm, 65.1, 10/03/20 13:55:00 CERTIFIED NURSES' AIDE, Weight Dosing, kg 1 Active insulin detemir (Levemir FlexPen) 100 unit/mL (3 mL) pen for injection See Instructions, Subcutaneous 46 units every am, and 10 units at HS orders to titrate to FBS 130 or less max dose 60 units, # 30 mL, 4 Refill(s), Pharmacy: [facility], 165.1, 08/08/22 11:09:00 CERTIFIED NURSES' AIDE, Height/Length Measured, cm, 93.4,... 2 Active insulin [...] hematuria 09/22/2021 Coronary artery disease invo lving [place] coronary artery of [place] heart without angina pectoris 09/22/2021 Chronic pain 09/22/2021 Chronic systolic CHF (congestive heart failure) ([facility]) 09/22/2021 Type 1 diabetes mellitus [...] any clubs o r organizations such as sikh groups, unions, fraternal or athletic groups, or [...] on file Legal Sex Female 11:01 PM CERTIFIED NURSES' AIDE Gender Identity Not on file Sexual Orientation Not on file Last Filed Vital Signs Vital Sign Reading Time Taken Comments Blood Pressure 100/60 08/26/2024 9:32 AM CERTIFIED NURSES' AIDE Pulse 93 08/26/2024 9:32 AM CERTIFIED NURSES' AIDE Temperature 36.2 ??C (97.2 ??F) 05/23/2023 11:54 PM C DT Respiratory Rate 16 05/24/2023 1:45 AM CDT Oxygen Saturation 95% 05/24/2023 1:45 AM CDT Inhaled Oxygen Concentration - - Weight 98.4 kg (217 lb) 08/26/2024 9:32 AM CERTIFIED NURSES' AIDE Height 165.1 cm (5' 5 ) 08/26/2024 9:32 AM CERTIFIED NURSES' AIDE Body Mass Index 36.11 08/26/2024 9:32 AM CERTIFIED NURSES' AIDE Plan of Treatment Not on file Procedures Procedure Name Priority Date/Time Associated Diagnosis Comments EGFR STAT 05/24/2023 12:04 AM CDT THYROID FUNCTION CASCADE STAT 09/22/2021 11:57 AM CERTIFIED NURSES' AIDE HEMOGLOBIN A1C STAT 09/22/2021 9:31 AM CERTIFIED NURSES' AIDE SERUM LIPID PANEL Routine 06/26/2014 8:1 1 AM CERTIFIED NURSES' AIDE COLONOSCOPY REPORT 06/07/2014 from Last 3 Months [...] ORDERABLES Final Res ult Performing Organization Address [facility] Co de Phone Number [phone] [place] [address] * TSH reflex to free T4 (09/22/2021 11:57 AM CERTIFIED NURSES' AIDE) TSH 2.85 0.30 - 4.20 mcIUnit/mL [facility] Blood 09/22/2021 11:5 7 AM CERTIFIED NURSES' AIDE 09/22/2021 12:23 PM CERTIFIED NURSES' AIDE us Chad Mayo Jr., MD LAB BLOOD ORDERABLES Final Result Performing Organization Address [facility] de Phone Number [address] [address] * (ABNORMAL) Hemoglobin A1c (09/22/2021 9:31 AM CERTIFIED NURSES' AIDE) Hgb A1C 11.7(H) 4.0 - 5.6 % [facility] Estimated Average Glucose 289 mg/dL [facility] Comment: The ADA recommends reporting an estimated Average Glucose (eAG) with all Hemoglobin A1c results using the equation derived from a study of 507 normal and diabetic adults. ??Minority populations were underrepresented and children were not included. ?? (Diabetes Care 31:9599-5129, 2008). ??The eAG is not equivalent to a fasting glucose. Blood 09/22/2021 9:31 AM CERTIFIED NURSES' AIDE 09/22/2021 10:38 AM CERTIFIED NURSES' AIDE us Chad Mayo Jr., MD LAB BLOOD ORDERABLES Final Result Performing Organization Address City/State/ZIP Co dc Phone Number [facility] [address] [facility] [place] [address] * (ABNORMAL) Serum lipid panel (06/26/2014 8:11 AM CERTIFIED NURSES' AIDE) Cholesterol 328(H) 40 - 199 mg/dl HISTORICAL [...] revised on 2012. Serum 06/26/2014 8:11 AM CERTIFIED NURSES' AIDE Historical Provider LAB BLOOD ORDERABLES Salma pfeiffer Result HISTORICAL RESULTS * COLONOSCOPY REPORT (06/07/2014) Anatomical Region Laterality Modality Other Narrative 06/07/2014 Ordered by an unspecified provider. Historical Provider GI PROCEDURE ORDERABLES F inal Result from Last 3 Months or Most Recently Relevant to Health Maintenance Insurance MEDICARE SOLUTIONS [facility] HEALTH PLAN ID [employer] Advance Directives For more information, please contact: [phone] * Full Code (Latest Code Status on File) Date Activated Date Inactivated Comments 09/22/2021 7:24 PM 09/24/2021 8:45 PM Care Teams Geophysical Party Chief Relationship Specialty Start Date End Date Donte Lucas PA [address] [place] [address] PCP - General Physician Level Glass Vial Filler 08/26/24
--- OUTSIDE RECORDS SUMMARY | 2024-09-10 12:48 | XMS_ITS | Continuity of Care Document ---
Author Organization [facility] Address [address] [place] [address] Phone Care Team Providers Care Store Deli Manager Name Role Phone Arnulfo Farrell Unavailable Unavailable Advance Directives Directive Yes / No Effective Date File Name No Information Encounters Encounter Description Practice Location Reason(s) For Visit Diagnoses Date Provider Providers Copied on Encounter [facility], [address] [place] [address], [facility], tel:[phone] *[facility] No Information Bud Arredondo. [address] [place] [address], [facility], . tel:[phone] Family History Family Member Type Diagnosis Age [...]
--- OUTSIDE RECORDS SUMMARY | 2024-09-10 12:48 | XMS_ITS | Encounter Summary ---
Author Organization [facility] Address [address] [place] [address] Care Team Providers Care Project Eng Name Role Phone Arnoldo Gary MD Primary Care Provider [phone] Encounter Details Date Type Department Care Team (Late st Contact Info) Description 01/25/2002 Inpatient Historical HIS INPATIENT IN BED Palak Shah MD [address] [place] [address] Say Patricio MD [address] [facility] [address] [place] [address] POISONING-ANTITUSSI VES (Primary Dx) Social History Tobacco Use Types Packs/Day Years Used Date Smoking Tobacco: Never Assessed Comments Unknown Sex and Gender Information Value Date Recorded Sex Assigned at Not on file 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
--- OUTSIDE RECORDS SUMMARY | 2024-09-10 12:48 | XMS_ITS | Referral Summary ---
Author Organization [facility] [employer] Address [address] [place] [address] Care Team Providers Care Whitewater Rafting Guide Name Role Phone Clement Pinto APRN-PROCESS DEVELOPMENT ASSOCIATE Primary Care Provider Source Comments [facility] [employer],non-owned Affiliates and Associated Physician Practices is amultiple site organization consisting of ambulatory clinics and hospital sitesin [place], [place], [place] and [place]. This disclosure is being madepursuant to the Care Everywhere program and may not contain all information available regarding this patient. Last updated 18.[employer] Allergies Active Allergy Reactions Criticality Noted Date [...] by mouth once daily Active HYDROcodone-acetam inophen ([place]) 5-325 MG tabletIndications: Post-operative state Take 1 [...] CDT Plan of Treatment Not on file Care Teams Whitewater Rafting Guide Relationship Specialty Start Date End Date Clement Pinto APRN-PROCESS DEVELOPMENT ASSOCIATE [address] [place] [phone] PCP - General Nurse Practitioner Family 05/13/23
--- OUTSIDE RECORDS SUMMARY | 2024-09-10 12:48 | XMS_ITS | Patient Health Summary ---
Author Organization [facility] Address [address] [facility] [place] [address] Care Team Providers Care Water And Gas Helper Name Role Phone Clement Pinto APRN-ASTROBIOLOGIST Primary Care Provider [phone] Note from [facility],non-owned Affiliates and Associated Physician Practices is amultiple site organization consisting of ambulatory clinics and hospital sitesin [place], [place], [place] and [place]. This disclosure is being madepursuant to the Care Everywhere program and may not contain all information available regarding this patient. Last updated 18.[facility] Allergies * Codeine(Itching) -Medium Criticality * Erythromycin(Vomiting) [...] capsule by mouth once daily * HYDROcodone-acetaminophen ([place]) 5-325 MG tablet(Started 05/13/2023) Take 1 (one) [...] (STL)(Performed 05/13/2023) Performed for Diagnosis unknown * FL REMV FOOT FOREIGN BODY,DEEP(Performed 05/13/2023) * CBC [...] TIME OF EXAM(s): 05/13/2023 1:22 PM; LOCATION: [facility] INDICATION(s): Z98.890: Other specified postprocedural states COMPARISON(s): [...] TIME OF EXAM(s): 05/13/2023 1:22 PM; LOCATION: [facility] INDICATION(s): Z98.890: Other specified postprocedural states COMPARISON(s): [...] - 106 mg/dL 05/13/2023 1:04 PM CDT [facility] Specimen Type Cap Fingerstick 2022 1:04 PM CDT [facility] Blood BLOOD SPECIMEN / Unknown 05/13/2023 12:53 PM CDT 05/13/2023 1:04 PM CDT Hayesklaus Santacruzser DPM LAB - POINT OF CARE ORDERABLES Performing Organization Address [facility]/ZIP Co de Phone Number [facility] [address] [place] [address] * FL LAURA SURGERY (05/13/2023 12:35 PM CDT) Narrative [facility] - 05/13/2023 1:01 PM CDT For details of this study, please see the providers note. Hayes Santacruzser DPM FLUOROSCOPY ORDERABL ES Performing Organization Address [facility] Co de Phone Number [facility] [address] [place] [address] * GROSS EXAM PATHOLOGY (STL) (05/13/2023 12:30 PM CDT) Case Report Surgical Pathology Report ? Case: [id number] ? Authorizing Provider: ??Duke, Hayes, DPM ? Collected: ? 05/13/2023 12:30 PM ? Ordering Location: ? [facility] ? Received: ?05/14/2023 01:49 PM ? Pathologist: ? Perla Alarcon MD ? Specimen: ?Foreign Object, Foreign object from right foot ? 05/15/2023 3:42 PM CDT [facility] Final Diagnosis Hardware/forei gn object, right foot, removal: - Consistent with removed hardware (gross examination only). SD 05/15/2023 3:42 PM CDT [facility] Gross Description Received in formalin labeled with the patient's name and ? foreign object from right foot is a 1.3 x 0.4 cm, irregular-shap ed silver-colored metal. The specimen is submitted for gross examination only. 05/15/2023 3:42 PM CDT [facility] Embedded Images 05/15/2023 3:42 PM CDT [facility] Pathology/Cytolo gy MISCELLANEOUS SAMPLES / Unknown 05/13/2023 12:30 PM CDT 05/14/2023 1:49 PM CDT Hayes WALTERSM LAB - PATHOLOGY/CYTO LOGY ORDERABLES Performing Organization Address City/State/[facility] Co de Phone Number [facility] [address] [place], [place] [phone] * (ABNORMAL) CBC W AUTO DIFFERENTIAL (05/13/2023 10:32 AM CDT) WBC 6.8 4.4 - 10.7 x10E9/L 05/13/2023 10:38 AM CDT [facility] WBC Corrected 05/13/2023 10:38 AM CDT [facility] RBC 3.58(L) 3.80 - 5.20 x10E12/L 05/13/2023 10:38 AM CDT [facility] Hemoglobin 10.5(L) 12.0 - 15.6 gm/dL 05/13/2023 10:38 AM CDT [facility] Hematocrit 34.2(L) 35.9 - 45.5 % 05/13/2023 10:38 AM CDT [facility] MCV 95.5 80.7 - 98.3 fl 05/13/2023 10:38 AM CDT [facility] MCH 29.3 26.7 - 34.0 pg 05/13/2023 10:38 AM CDT [facility] MCHC 30.7(L) 30.8 - 35.9 gm/dL 05/13/2023 10:38 AM CDT [facility] Platelet Count 139(L) 153 - 416 x10E9/L 05/13/2023 10:38 [facility] RDW-CV 15.0(H) 12.1 - 14.9 % 05/13/2023 10:38 AM CDT [facility] MPV 12.3 9.4 - 12.9 fl 05/13/2023 10:38 AM [facility] Neutrophils % 67.1 44.0 - 73.0 % 05/13/2023 10:38 AM [facility] Lymphocytes % 19.6(L) 20.0 - 43.0 % 05/13/2023 10:38 AM [facility] Monocytes % 8.8 5.0 - 13.0 % 05/13/2023 10:38 AM [facility] Eosinophils % 3.1 0.0 - 6.0 % 05/13/2023 10:38 AM [facility] Basophils % 1.0 0.0 - 2.0 % 05/13/2023 10:38 AM [facility] Immature Granulocytes 0.4 0 - 1 % 05/13/2023 10:38 AM CDT [facility] Neutrophil Absolute 4.57 2.01 - 7.14 x10E9/L 05/13/2023 10:38 AM CDT [facility] Lymphocytes Absolute 1.34 1.07 - 3.94 x10E9/L 05/13/2023 10:38 AM CDT [facility] Monocytes Absolute 0.60 0.26 - 1.07 x10E9/L 05/13/2023 10:38 AM CDT [facility] Eosinophils Absolute 0.21 0 - 0.47 x10E9/L 05/13/2023 10:38 AM CDT [facility] Basophils Absolute 0.07 0 - 0.08 x10E9/L 05/13/2023 10:38 AM CDT [facility] Immature Granulocytes Absolute 0.03 0.00 - 0.06 x10E9/L 05/13/2023 10:38 AM T [facility] nRBC Auto 0 /100 WBC 05/13/2023 10:38 AM [facility] Blood BLOOD SPECIMEN / Unknown Venipuncture / Unknown 05/13/2023 10:32 AM CDT 05/13/2023 10:35 AM CDT Princess Hoover PA-C LAB - HEMATOLOGY ORDERABLES [facility] [address] [facility] [place] [address] * (ABNORMAL) BASIC METABOLIC PANEL (CALCIUM TOTAL) (05/13/2023 10:22 AM CDT) Glucose 261(H) 70 - 105 mg/dL 05/13/2023 10:43 AM [facility] Sodium 142 136 - 145 mmol/L 05/13/2023 10:43 AM [facility] Potassium 4.6 3.5 - 5.1 mmol/L 05/13/2023 10:43 AM [facility] Chloride 108(H) 98 - 107 mmol/L 05/13/2023 10:43 AM [facility] CO2 27 22 - 29 mmol/L 05/13/2023 10:43 AM [facility] Calcium 8.9 8.4 - 10.4 mg/dL 05/13/2023 10:43 AM [facility] Anion Gap 7 6 - 16 mmol/L 05/13/2023 10:43 AM [facility] BUN 44(H) 5.3 - 18.7 mg/dL 05/13/2023 10:43 AM [facility] Creatinine 1.24(H) 0.57 - 1.11 mg/dL 05/13/2023 10:43 AM [facility] eGFR by CKD-EPI 54(L) >=90 mL/min/1.7 3 m2 05/13/2023 10:43 AM [facility] Blood BLOOD SPECIMEN / Unknown Venipuncture / Unknown 05/13/2023 10:22 AM CDT 05/13/2023 10:25 AM CDT Princess Hoover PA-C LAB - CHEMISTRY ORDERABLES Performing Organization Address [facility] Co de Phone Number [facility] [address] [place] [address] * MAGNESIUM BLOOD (05/13/2023 10:22 AM CDT) Magnesium 2.6 1.6 - 2.6 mg/dL 05/13/2023 10:43 AM CDT [facility] Blood BLOOD SPECIMEN / Unknown Venipuncture / Unknown 05/13/2023 10:22 AM CDT 05/13/2023 10:25 AM CDT Princess Hoover PA-C LAB - CHEMISTRY ORDERABLES Performing Organization Address [facility] de Phone Number [facility] [address] [place] [address] * EKG 12-LEAD (05/13/2023 9:43 AM CDT) Ventricular Rate 88 BPM [facility] Atrial Rate 88 BPM [facility] P-R Interval 144 ms [facility] QRS Duration ms 84 ms [facility] Q-T Interval ms 376 ms [facility] QTC Calculation (Bezet) 454 ms [facility] Calculated P [place] 42 degrees [facility] MUSE Calculated R [place] -18 degrees [facility] MUSE Calculated T [place] 92 degrees [facility] MUSE Interpretation EKG Normal sinus rhythm Minimal voltage criteria for LVH, may be normal variant ( R in aVL ) Cannot rule out Anterior infarct , age undetermined Abnormal ECG No previous ECGs available Confirmed by MD FERNANDES ANDREA ([id number]) on 05/14/2023 9:08:44 AM [facility] 05/13/2023 9:43 AM CDT 05/14/2023 9:08 [...] Provider Unknown LAB SEND OUT Care Teams Water And Gas Helper Relationship Specialty Start Date End Date Clement Pinto APRN-ASTROBIOLOGIST [address] [place] [address] PCP - General Nurse Practitioner Family 05/13/23
--- OUTSIDE RECORDS SUMMARY | 2024-09-10 12:48 | XMS_ITS | Clinical Summary ---
Author Organization [facility] Address [address] [place] [address] Care Team Providers Care Inspector Coated Fabrics Name Role Phone Donte Lucas Primary Care Provider Allergies Active Allergy Reactions Criticality Noted Date Comments Cephalexin Other (See comments) Reaction: Unknown, , Codeine Other (See comments) Reaction: Unknown, , Erythromycin Medications gabapentin (NEURONTIN) 400 mg capsule See Instructions, 1 cap Oral in morning, 1 cap midday, and 3 cap @ HS, # 150 cap, 2 Refill(s), Pharmacy: [facility], 165.1, 10/03/20 13:50:00 MICROELECTRONICS TECHNICIAN, Height/Length Measured, cm, 65.1, 10/03/20 13:55:00 MICROELECTRONICS TECHNICIAN, Weight Dosing, kg 1 Active empagliflozin ([place]ARD[place]) [...] injection Inject 50 Units under the skin support merchandiser before breakfast 3 Active insulin glargine (BASAGLAR) 100 unit/mL (3 mL) pen for injection See Instructions, 32 units daily, # 15 mL, 3 Refill(s), Pharmacy: [facility], 165.1, 10/03/20 13:50:00 MICROELECTRONICS TECHNICIAN, Height/Length Measured, cm, 65.1, 10/03/20 13:55:00 MICROELECTRONICS TECHNICIAN, Weight Dosing, kg 1 Active insulin detemir (Levemir FlexPen) 100 unit/mL (3 mL) pen for injection See Instructions, Subcutaneous 46 units every am, and 10 units at HS orders to titrate to FBS 130 or less max dose 60 units, # 30 mL, 4 Refill(s), Pharmacy: [facility], 165.1, 08/08/22 11:09:00 MICROELECTRONICS TECHNICIAN, Height/Length Measured, cm, 93.4,... 2 Active insulin [...] hematuria 09/22/2021 Coronary artery disease invo lving [place] coronary artery of [place] heart without angina pectoris 09/22/2021 Chronic pain 09/22/2021 Chronic systolic CHF (congestive heart failure) ([facility]) 09/22/2021 Type 1 diabetes [...] Department Care Team Description 08/26/2024 9:30 AM MICROELECTRONICS TECHNICIAN Office Visit [facility] [address] [place] [phone] Ethel, Kaleb Adam MD Cerebrovascular accident [...] Arthritis Asthma CHF (congestive heart failur e) ([facility]) (HCC) Bladder problem Seizures (HCC) Hypotension Family [...] often do you attend chur ch or confucianist services? Never 09/24/2021 Do you belong to any clubs o r organizations such as catholic groups, unions, fraternal or athletic groups, or [...] on file Legal Sex Female 11:01 PM MICROELECTRONICS TECHNICIAN Gender Identity Not on file Sexual Orientation Not on file Obstetrics History Last Filed Vital Signs Vital Sign Reading Time Taken Comments Blood Pressure 100/60 08/26/2024 9:32 AM MICROELECTRONICS TECHNICIAN Pulse 93 08/26/2024 9:32 AM MICROELECTRONICS TECHNICIAN Temperature 36.2 ??C (97.2 ??F) 05/23/2023 11:54 PM C DT Respiratory Rate 16 05/24/2023 1:45 AM CDT Oxygen Saturation 95% 05/24/2023 1:45 AM CDT Inhaled Oxygen Concentration - - Weight 98.4 kg (217 lb) 08/26/2024 9:32 AM MICROELECTRONICS TECHNICIAN Height 165.1 cm (5' 5 ) 08/26/2024 9:32 AM MICROELECTRONICS TECHNICIAN Body Mass Index 36.11 08/26/2024 9:32 AM MICROELECTRONICS TECHNICIAN Plan of Treatment Health Maintenance Due Date [...] THYROID FUNCTION CASCADE STAT 09/22/2021 11:57 AM MICROELECTRONICS TECHNICIAN HEMOGLOBIN A1C STAT 09/22/2021 9:31 AM MICROELECTRONICS TECHNICIAN SERUM LIPID PANEL Routine 06/26/2014 8:1 1 AM MICROELECTRONICS TECHNICIAN COLONOSCOPY REPORT 06/07/2014 from Last 3 Months [...] ORDERABLES Final Res ult Performing Organization Address [facility] Co de Phone Number [facility] [address] [place] [address] * TSH reflex to free T4 (09/22/2021 11:57 AM MICROELECTRONICS TECHNICIAN) Pathologist [facility] TSH 2.85 0.30 - 4.20 mcIUnit/mL [facility] Blood 09/22/2021 11:5 7 AM MICROELECTRONICS TECHNICIAN 09/22/2021 12:23 PM MICROELECTRONICS TECHNICIAN us Chad Mayo Jr., MD LAB BLOOD ORDERABLES Final Result Performing Organization Address [facility] de Phone Number [address] [address] * (ABNORMAL) Hemoglobin A1c (09/22/2021 9:31 AM MICROELECTRONICS TECHNICIAN) Hgb A1C 11.7(H) 4.0 - 5.6 % [facility] Estimated Average Glucose 289 mg/dL [facility] Comment: The ADA recommends reporting an estimated Average Glucose (eAG) with all Hemoglobin A1c results using the equation derived from a study of 507 normal and diabetic adults. ??Minority populations were underrepresented and children were not included. ?? (Diabetes Care 31:2097-9651, 2008). ??The eAG is not equivalent to a fasting glucose. Blood 09/22/2021 9:31 AM MICROELECTRONICS TECHNICIAN 09/22/2021 10:38 AM MICROELECTRONICS TECHNICIAN us Chad Mayo Jr., MD LAB BLOOD ORDERABLES Final Result Performing Organization Address [facility] Co de Phone Number [address] [address] * (ABNORMAL) Serum lipid panel (06/26/2014 8:11 AM MICROELECTRONICS TECHNICIAN) Cholesterol 328(H) 40 - 199 mg/dl HISTORICAL [...] revised on 2012. Serum 06/26/2014 8:11 AM MICROELECTRONICS TECHNICIAN us Historical Provider LAB BLOOD ORDERABLES Salma pfeiffer Result HISTORICAL RESULTS * COLONOSCOPY REPORT (06/07/2014) Anatomical Region Laterality Modality Other Narrative 06/07/2014 Ordered by an unspecified provider. us Historical Provider GI PROCEDURE ORDERABLES F inal Result from Last 3 Months or Most Recently Relevant to Health Maintenance Insurance [employer] HEALTH PLAN [facility] IDPA Advance Directives For more information, please contact: [phone] * Full Code (Latest Code Status on File) Date Activated Date Inactivated Comments 09/22/2021 7:24 PM 09/24/2021 8:45 PM Care Teams Inspector Coated Fabrics Relationship Specialty Start Date End Date Donte Lucas PA [address] [place] [address] PCP - General Physician Patient Representative 08/26/24
--- OUTSIDE RECORDS SUMMARY | 2024-09-10 12:48 | XMS_ITS | Continuity of Care Document ---
Author Organization [facility] Address [id number] [place] [address] [address] [place] [address] Phone Care Team Providers Care Rail Transportation Tabeler Name Role Phone Josh Teixeira MD, MD Unavailable Unavailab le Procedures Procedure Date POSTOP FOLLOW-UP VISIT CATARACT SURG W/IOL, 1 STAGE CATARACT SURG W/IOL, 1 STAGE OFFICE/OUTPATIENT VISIT, [facility] Advance Directives Directive Yes / No Effective Date File Name No Information Encounters Encounter Description Practice Location Reason(s) For Visit Diagnoses Date Provider Providers Copied on Encounter [facility], [address], [place], [place], [id number], [place] tel:[phone] 78 [facility] No Information 4 Puneet Moreno. [address], [address], [place], [place], [id number] , [place]. [phone] Referring Provider: Josh Watkins, [address], [place], [place], [id number]. tel:[phone] [facility], [address], [place], [place], [address], [place] tel:[phone] 78 [facility] No Information 4 Puneet Moreno. [address], [address], [place], [place], [address] , [place]. [phone] Referring Provider: Josh Watkins, [address], [place], [place], [address]. tel:[phone] [facility], [address] [address], [place], [place], [address], tel:[phone] 78 [facility] No Information 3 Puneet Moreno. [address], [address], [place], [place], [address] , [place]. [phone] Referring Provider: Josh Watkins, [address], [place], [place], [address]. tel:[phone] OFFICE/OUTPAT IENT VISIT, [facility], [address], [place], [place], [id number], tel:[phone] 78 [facility] No Information 3 Puneet Moreno. [address], [place], [place], [address] , [place]. tel: [phone] Referring Provider: Josh Watkins, [address], [place], [place], [address]. tel:[phone] Family History Family Member Type Diagnosis Age [...]
--- OUTSIDE RECORDS SUMMARY | 2024-09-10 12:48 | XMS_ITS | Clinical Summary ---
Author Organization [facility] [employer] Address [address] [place] [address] Care Team Providers Care Anode Adjuster Name Role Phone Clement Pinto APRN-PSYCH SOCIAL WORKER Primary Care Provider [phone] Source Comments [facility] [employer],non-owned Affiliates and Associated Physician Practices is amultiple site organization consisting of ambulatory clinics and hospital sitesin [place], [place], [place] and [place]. This disclosure is being madepursuant to the Care Everywhere program and may not contain all information available regarding this patient. Last updated 18.[employer] [facility] Allergies Active Allergy Reactions Criticality Noted Date [...] by mouth once daily Active HYDROcodone-acetam inophen ([place]) 5-325 MG tabletIndications: Post-operative state Take 1 [...] age to complete this topic Care Teams Anode Adjuster Relationship Specialty Start Date End Date Clement Pinto APRN-PSYCH SOCIAL WORKER [address] [place] [phone] PCP - General Nurse Practitioner Family 05/13/23
--- OUTSIDE RECORDS SUMMARY | 2024-09-10 12:48 | XMS_ITS | Continuity of Care Document ---
Author Organization [facility] Address [address] [place] [address] Phone Care Team Providers Care [employer]ator Name Role Phone Unavailable Unavailable Unavailable Allergies, [...] ONCE DAILY - Active FreeStyle Carol 2 [place] please issue one reader to monitor constant blood glucose levels - Active FreeStyle Carol 2 Sensor kit please issue one sensor kit every 7-14 days to monitor blood glucose levels constantly. - Active bumetanide 1 mg tablet take 1 tablet by mouth every morning and 1 tablet by mouth every evening - Active metoprolol succinate ER 25 mg tablet,extended release 24 hr take 1/2 (half) tablet by oral route every day - Active buspirone 10 mg tablet take 1 tablet by oral route 2 times every day 10 MG - Active Xarelto 20 mg tablet take 1 tablet by or al route every day with the evening meal 20 MG - Active doxepin 10 mg capsule take 1 capsule by oral route at bedtime - Active Levemir FlexPen 100 unit/mL (3 mL) solution subcutaneous insulin pen inject 48 units by subcutaneous route every morning and 10 units at bedtime. - Active lisinopril 2.5 mg tablet take 1 tablet by oral route every day 2.5 MG - Active Problems Condition Type Effective Dates [...] Diagnoses Date Provider Providers Copied on Encounter [facility], [address] [place] [address], [address], tel:[phone] *[facility] No Information 4 No Information [facility], [address] [place] [address], [address], tel:[phone] *[facility] No Information 3 No Information [facility], [address] [place] [address], [address], tel:[phone] *[facility] Body mass index [BMI] 32.0-32.9, adult 3 No Information OFFICE/OUTPA TIENT VISIT, EST [facility], [address] [place] [address], [address], tel:[phone] *[facility] Diabetes (chief complaint)R efills (chief complaint) Chronic kidney disease, unspecified CKD stageType 2 diabetes mellitus with hyperglycemiaPa in in unspecified joint 3 No Information [facility], [address] [place] [address], [address], [place] tel:[phone] *[facility] No Information 3 No Information [facility], [address] [place] [address], [address], [place] tel:[phone] *[facility] Abnormal complete blood count 3 No Information OFFICE/OUTPA TIENT VISIT, [facility], [address] [place] [address], [address], [place] tel:[phone] *[facility] Surgery clearance (chief complaint) Body mass index [BMI] 29.0-29.9, adultType 2 diabetes mellitus with hyperglycemiaPo lyneuropathyChr onic systolic (congestive) heart failureChronic kidney disease, unspecified CKD stageAt risk for falling 3 No Information [facility], [address] [place] [address], [address], [place] tel:[phone] *[facility] No Information 3 No Information [facility], [address] [place] [address], [address], [place] tel:[phone] *[facility] Polyneuropathy 3 No Information OFFICE/OUTPA TIENT VISIT, [facility], [address] [place] [address], [address], [place] tel:[phone] *[facility] ear pain bilateral (chief complaint)c hronic conditions (chief complaint)e luke (chief complaint)s ore under left breast (chief complaint) Body mass index [BMI] 31.0-31.9, adultCellulitis of breastAcute serous otitis media, bilateralChroni c systolic (congestive) heart failurePolyneur opathyChronic pain of left knee 3 No Information [facility], [address] [place] [address], [address], [place] tel:[phone] *[facility] No Information 3 No Information OFFICE/OUTPA TIENT VISIT, [facility], [address] [place] [address], [address], tel:[phone] *[facility] pain (chief complaint)U TI (chief complaint)c hronic conditions (chief complaint) Pain in unspecified jointChronic kidney disease, unspecified CKD stageType 2 diabetes mellitus with hyperglycemiaBo dy mass index [BMI] 45.0-49.9, adultUTIChronic systolic (congestive) heart failureCardiomy opathy, unspecifiedAt risk for falling 3 No Information [facility], [address] [place] [address], [address], tel:[phone] *[facility] No Information 3 No Information OFFICE/OUTPA TIENT VISIT, [facility], [address] [place] [address], [address], tel:[phone] *[facility] New Patient (chief complaint)c hronic [...] due Goal HPV. Due on due Goal Page Questionn aire. Due on due Goal Tdap. Due on due Goal Blood Pressure C heck. Due on due Goal Lipid Panel. Due on due Goal Annual Exam. Due on due Goal Depression scree matilde. Due on due Goal Mammogram. Due on due Goal PPD (TST). Due on due Goal Annual Exam. Due on due Goal Hepatitis C scre ening. Due on due Goal Tobacco Counseli ng. Due on due Goal Unhealthy drug u se screening. Due on due Goal Td vaccine. Due on due Goal Page Questionn aire. Due on due Goal Depression scree matilde. Due on due Goal Influenza vaccin e. Due on due Goal Mammogram. Due on due Goal Tdap. Due on due Goal Blood Pressure C heck. Due on due Goal Screening/Behavi oral Counseling for Alcohol Misuse. Due on due Goal HPV. Due on due Goal PAP. Due on due Goal Suicide Risk Ass essment (suicide/homicide risk). Due on due Goal Lipid Panel. Due on due Goal Dietary manageme nt education, guidance, and counseling completed Goal Hepatitis C scre ening. Due on due Goal PPD (TST). Due on due Goal Annual Exam. Due on due Goal HPV. Due on due Goal Lipid Panel. Due on due Goal Depression scree matilde. Due on due Goal PAP. Due on due Goal Blood Pressure C heck. Due on due Goal Page Questionn aire. Due on due Goal Tobacco Counseli ng. Due on due Goal Unhealthy drug u se screening. Due on due Goal Suicide Risk Ass essment (suicide/homicide risk). Due on due Goal Tdap. Due on due Goal Mammogram. Due on due Goal Influenza vaccin e. Due on due Goal Td vaccine. Due on due Goal Screening/Behavi oral Counseling for Alcohol Misuse. Due on due Goal Lipid Panel. Due on due Goal Blood Pressure C heck. Due on due Goal Tobacco Counseli ng. Due on due Goal Hepatitis C scre ening. Due on due Goal Depression scree matilde. Due on due Goal Td vaccine. Due on due Goal Mammogram. Due on due Goal PAP. Due on due Goal Influenza vaccin e. Due on due Goal Page Questionn aire. Due on due Goal Tdap. [...] nt education, guidance, and counseling completed Goal Unhealthy drug u se screening. Due on due Goal Lipid Panel. Due on due Goal Hepatitis C scre ening. Due on due Goal Blood Pressure C heck. Due on due Goal Depression scree matilde. Due on due Goal Mammogram. Due on due Goal Influenza vaccin e. Due on due Goal Td vaccine. Due on due Goal Page Questionn aire. Due on due Goal Tdap. Due on due Goal PAP. Due on due Goal Tobacco Counseli ng. Due on due Goal Suicide Risk Ass essment (suicide/homicide risk). Due on due Goal Annual Exam. Due [...] C scre ening. Due on due Goal Page Questionn aire. Due on due Goal PAP. Due on [...] completed Goal Tdap. Due on due Goal Annual Exam. Due on due Goal Influenza vaccin e. Due on due Goal PAP. Due on due Goal PPD (TST). Due [...] Tobacco Counseli ng. Due on due Goal Mammogram. Due on due Goal Page Questionn aire. Due on due Goal Hepatitis C scre ening. Due on due Goal Dietary manageme nt education, guidance, and counseling completed Goal Annual Exam. Due on due Goal Screening/Behavi oral Counseling for Alcohol Misuse. Due on due Goal Mammogram. Due on due Goal Td vaccine. Due on due Goal Suicide Risk Ass essment (suicide/homicide risk). Due on due Goal PPD (TST). Due on due Goal Tdap. Due on due Goal Depression scree matilde. Due on due Goal PAP. Due on due Goal Tobacco Counseli ng. Due on due Goal HPV. Due on due Goal Blood Pressure C heck. Due on due Goal Page Questionn aire. Due on due Goal Hepatitis C scre ening. Due on due Goal Unhealthy drug u se screening. Due on due Goal Lipid Panel. Due on due Goal Influenza vaccin e. Due on due Goal Unhealthy drug u se screening. Due on due Goal Page Questionn aire. Due on due Goal Hepatitis C scre ening. Due on due Goal Tdap. Due on due Goal PAP. Due on due Goal HPV. Due on due Goal Tobacco Counseli ng. Due on due Goal PPD (TST). Due on due Goal Mammogram. Due on 3 due Goal Annual Exam. Due on 023 due Goal Blood Pressure C heck. Due on due Goal Screening/Behavi oral Counseling for Alcohol Misuse. Due on due Goal Lipid Panel. Due on 023 due Goal Depression scree matilde. Due on due Goal Influenza vaccin e. Due on due Goal Td vaccine. Due on 23 due Goal Suicide Risk Ass essment (suicide/homicide risk). Due on due Goal Dietary manageme nt education, guidance, and counseling completed Referral Referred To: [address], [id number] Ordered: Referrals: Oncology. [facility]. Evaluate and treat ordered Referral Ordered: [facility] -Nephrology (related to Type 2 diabetes mellitus with hyperglycemia) ordered Referral Referred To: tina Ordered: Referrals: Nephrology. [facility]. Location: [place]. Evaluate and treat ordered Referral Referred To: manda prince Ordered: Referrals: Endocrinology, Diabetes and Metabolism. [facility]. Evaluate and treat ordered Referral Ordered: [facility] -Neurology (related to Polyneuropathy) ordered Referral Referred To: [facility] Ordered: Referrals: Neurology. [facility]. Evaluate and treat ordered Referral Referred To: [address], [phone] Ordered: Referrals: Orthopedic Surgery. [facility]. Location: [facility]. Evaluate and treat ordered Future Order: Radiol ogy Order US ABDOMEN COMPLETE ([id number]), Ordered on: Ordered Future Order: Lab Order CBC w/AU TO DIFF ([id number]), Ordered on: Ordered Future Order: Lab Order COMPREHE NSIVE METABOLIC PANEL ([id number]), Ordered on: Ordered Future Order: Lab Order GLYCOHEM OGLOBIN (A1c) ([id number]), Ordered on: Ordered Future Order: Lab Order Electroc ardiogram ([id number]), Ordered on: Ordered Future Order: Lab Order LIPID PA KAR ([id number]), Ordered on: Ordered Future Order: Lab Order THYROID STIMULATING HORMONE ([id number]), Ordered on: Ordered Future Order: Lab Order BNP (B-t ype Natriuretic Peptide) ([id number]), Sent on: Sent Future Order: Lab Order COMPREHE NSIVE METABOLIC PANEL ([id number]), Sent on: Sent Future Order: Lab Order CBC w/AU TO DIFF ([id number]), Sent on: Sent Future Order: Lab Order Electroc ardiogram ([id number]), Sent on: Sent Future Order: Radiol ogy Order CHEST 2 VW FRONT & LAT ([id number]), Sent on: Sent Future Order: Radiol ogy Order KNEE, LEFT, (1 OR 2 VIEWS) ([id number]), Ordered on: Ordered History Of Present Illness [...]
--- OUTSIDE RECORDS SUMMARY | 2024-09-10 12:49 | XMS_ITS | Clinical Summary ---
Author Organization [facility] Address [facility] [place] [address] [place] [address] Care Team Providers Care Rehab Services Aide Name Role Phone Rose Conn MD Unavailable [...] Blood Gluc Sensor (FREESTYLE DUONG 2 SENSOR) [facility] [place] 10/05/19 24 Active celecoxib (CELEBREX) 200 MG [...] units, # 30 mL, 4 Refill(s), Pharmacy: [facility], 165.1, 08/08/22 11:09:00 PLASTIC SEWER, Height/Length Measured, cm, 93.4,... 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) 08/31/2024 Travel 08/23/2024 Abstract [facility] [address] [place] [address] Abstract, Doc Pccl 08/19/2024 7:19 AM PLASTIC SEWER - 08/19/2024 10:06 AM [facility] Emergency [facility] [address] [place] [address] Marciano Mora DO Abdominal Pain; Edema Discharge Disposition: Home or Self Care (Routine Discharge) 08/19/2024 Travel 08/12/2024 Transcribe Orders [facility] Pre Access Team [address] [place] [address] Raúl Avalos NP 08/01/2024 11:13 AM PLASTIC SEWER - 08/01/2024 11:59 PM PLASTIC SEWER Hospital En[facility] [place] [address] Lorenza Inman MD Discharge Disposition: Home or Self Care (Routine Discharge) 08/01/2024 Orders Only [facility] [place] [address] Raúl Avalos NP 08/01/2024 Travel 07/29/2024 9:44 AM PLASTIC SEWER - 07/29/2024 11:59 PM [facility] Hospital Encounter [facility] [address] [place] [address] Raúl Avalos NP Discharge Disposition: Home or Self Care (Routine Discharge) 07/29/2024 Travel 07/18/2024 12:00 PM PLASTIC SEWER Office Visit [facility] [address] [place] [address] Rose Conn MD Heart Problem 07/18/2024 11:22 AM PLASTIC SEWER - 07/18/2024 11:59 PM PLASTIC SEWER Hospital Encounter [facility] [address] [place] [address] Rose Conn MD Discharge Disposition: Home or Self Care (Routine Discharge) 07/18/2024 Telephone [facility] [address] [place] [address] Rose Conn MD Schedule Test 07/18/2024 Travel 07/18/2024 Orders Only [facility] [address] [place] [address] Rose Conn MD 07/11/2024 Telephone [facility] [address] [place] [address] Rose Conn MD Reschedule 07/10/2024 Scan [facility] [address] [place] [address] Scanned, Doc Pccl Image (SCAN); ECG (SCAN) 07/10/2024 Scan [facility] [address] [place] [address] Scanned, Doc Pccl Image (SCAN) 07/05/2024 Telephone [facility] [address] [place] [address] Rose Conn MD Appointment Request 07/04/2024 11:59 PM PLASTIC SEWER Anesthesia Event [facility] [address] [place] [address] Valentino Hull CRNA 07/04/2024 Travel 06/28/2024 12:53 PM PLASTIC SEWER - 06/28/2024 11:59 PM PLASTIC SEWER Hospital Encounter [facility] [address] [place] [address] Tiffanie Abreu FNP Discharge Disposition: Home or Self Care (Routine Discharge) 06/28/2024 12:15 PM PLASTIC SEWER - 06/28/2024 12:52 PM PLASTIC SEWER Hospital Encounter [facility] [address] [place] [address] Lorenza Inman MD Discharge Disposition: Home or Self Care (Routine Discharge) 06/28/2024 12:14 PM PLASTIC SEWER Hospital Encounter [facility] [place] [place] [address] Lorenza Inman MD Discharge Disposition: Home or Self Care (Routine Discharge) 06/28/2024 Orders Only [place] [address] [place] [address] Lorenza Inman MD 06/28/2024 Travel 06/21/2024 12:42 PM PLASTIC SEWER - 06/21/2024 11:59 PM PLASTIC SEWER Hospital Encounter [facility] [place] [place] [address] Tiffanie Abreu FNP Discharge Disposition: Home or Self Care (Routine Discharge) 06/21/2024 Travel 06/10/2024 3:59 PM CDT - 06/10/2024 11:59 PM CDT Hospital Encounter [place] [id number] [place] [address] Tiffanie Abreu FNP Discharge Disposition: Home or Self Care (Routine Discharge) 06/10/2024 Orders Only [facility] [place] [address] Tiffanie Arbeu FNP 06/10/2024 Travel from Last 3 Months [...] Sex Assigned at Female 08/31/2024 8:28 AM PLASTIC SEWER Legal Sex Female 8:37 PM CDT Gender Identity Not on file Sexual Orientation Not on file Last Filed Vital Signs Vital Sign Reading Time Taken Comments Blood Pressure 108/62 08/31/2024 8:51 AM PLASTIC SEWER Pulse 94 08/31/2024 8:51 AM PLASTIC SEWER Temperature 36.7 ??C (98.1 ??F) 08/19/2024 7:30 AM CS T Respiratory Rate 16 08/31/2024 8:51 AM PLASTIC SEWER Oxygen Saturation 99% 08/31/2024 8:51 AM PLASTIC SEWER Inhaled Oxygen Concentration - - Weight 100.5 kg (221 lb 9.6 oz) 08/31/2024 8:51 AM PLASTIC SEWER Height 165.1 cm (5' 5 ) 08/31/2024 8:51 AM PLASTIC SEWER Body Mass Index 36.88 08/31/2024 8:51 AM PLASTIC SEWER Plan of Treatment Upcoming Encounters Date Type Department Care Team (Late st Contact Info) Description 01/10/2025 12:[address] [facility] [address] Rose Conn MD [address] [place] [address] 01/10/2025 1:[address] [facility] [place] [place] [address] Rose Conn MD [address] [place] [address] 01/20/2025 3:15 PM CDT Office Visit [facility] [address] Rose Conn MD [address] [place] [address] Health Maintenance Due Date Last Done Comments [...] 2024 Influenza Adult (#1) 2024 PHQ-2 (Physician [place]) 08/10/2024 Lipid Panel 09/15/2024 09/15/2023, 04/20/2021 Meningococcal [...] URINALYSIS AUTO W/MICRO STAT 08/19/2024 9:04 AM PLASTIC SEWER POCT GLUCOSE - CHISHOLM DOCKED DEVICE Routine 08/19/2024 8:54 AM PLASTIC SEWER XR CHEST PORTABLE STAT 08/19/2024 8:[address] ABD+PEL WO CON STAT 08/19/2024 8:0 7 AM PLASTIC SEWER PRO-BRAIN NATRIURETIC PEPTIDE STAT 08/19/2024 8:01 AM PLASTIC SEWER TROPONIN, QUANT STAT 08/19/2024 8:01 AM PLASTIC SEWER LIPASE STAT 08/19/2024 8:01 AM PLASTIC SEWER AMYLASE STAT 08/19/2024 8:01 AM PLASTIC SEWER COMPREHENSIVE METABOLIC PANEL STAT 08/19/2024 8:01 AM PLASTIC SEWER CBC W/DIFF AUTOMATED STAT 08/19/2024 8:01 AM PLASTIC SEWER ECG 12-LEAD STAT 08/19/2024 7:48 AM PLASTIC SEWER COMPREHENSIVE METABOLIC PANEL Routine 08/01/2024 11:40 AM PLASTIC SEWER Alkaline phosphatase elevation USV CAROTID DUPLEX MANPREET Routine 07/29/2024 11:30 AM PLASTIC SEWER CVA (cerebral vascular accident) (CMS/HCC HHS/HCC) MRI BRAIN WO CON Routine 07/29/2024 10:59 AM PLASTIC SEWER CVA (cerebral vascular accident) (CMS/HCC HHS/HCC) ECG 12-LEAD Routine 07/18/2024 11:31 AM PLASTIC SEWER Encounter for preprocedural cardiovascular examination ECG GENERIC (SCAN ORDER) Routine 07/10/2024 12:00 AM PLASTIC SEWER COMPREHENSIVE METABOLIC PANEL Routine 07/10/2024 PRO-BRAIN NATRIURETIC PEPTIDE Routine 07/10/2024 CBC, MANUAL DIFF Routine 07/10/2024 IMAGE GENERIC Routine 07/10/2024 BASIC METABOLIC PANEL Routine 06/28/2024 12:43 PM PLASTIC SEWER Preop testing CBC W/DIFF AUTOMATED Routine 06/28/2024 12:43 PM PLASTIC SEWER Preop testing ECG 12-LEAD Routine 06/28/2024 12:23 PM PLASTIC SEWER Preop testing CBC W/DIFF AUTOMATED Routine 06/10/2024 [...] HHS/HCC) LIPID PANEL Routine 09/15/2023 9:04 AM PLASTIC SEWER Familial hypercholesterolemia from Last 3 Months or Most Recently Relevant to Health Maintenance Results * (ABNORMAL) URINALYSIS (08/19/2024 9:04 AM PLASTIC SEWER) COLOR (U) YELLOW 08/19/2024 9:24 AM [facility] TRANSPARENCY CLEAR 08/19/2024 9:24 AM [facility] SPECIFIC GRAVITY (U) 1.015 1.000 - 1.025 08/19/2024 9:24 AM [facility] U PH 6.5 5.0 - 8.0 08/19/2024 9:24 AM [facility] LEUKOCYTES (U) 1+(A) NEGATIVE 08/19/2024 9:24 AM [facility] NITRITES NEGATIVE NEGATIVE 08/19/2024 9:24 AM [facility] PROTEIN RANDOM (U) NEGATIVE NEGATIVE 08/19/2024 9:24 AM [facility] GLUCOSE (U) 1+(A) NEGATIVE 08/19/2024 9:24 AM [facility] KETONES MG/DL (U) NEGATIVE NEGATIVE 08/19/2024 9:24 AM [facility] UROBILINOGEN 0.2 <1.0 EU/DL 08/19/2024 9:24 AM [facility] BILIRUBIN (U) NEGATIVE NEGATIVE 08/19/2024 9:24 AM PLASTIC SEWER [facility] BLOOD (U) NEGATIVE NEGATIVE 08/19/2024 9:24 AM PLASTIC SEWER [facility] WBC/HPF 5-10(A) 0 - 5 /HPF 08/19/2024 9:24 AM PLASTIC SEWER [facility] RBC/HPF 0-5 0 - 5 /HPF 08/19/2024 9:24 AM PLASTIC SEWER [facility] EPI/LPF MANY /LPF 08/19/2024 9:24 AM PLASTIC SEWER [facility] BACTERIA (U) TRACE /HPF 08/19/2024 9:24 AM PLASTIC SEWER [facility] URINE SPECIMEN OBTAINED BY CLEAN CATCH PROCEDURE / Unknown 08/19/2024 9:04 AM PLASTIC SEWER us Marciano Mora DO URINE ORDERABLES Final Resul t Performing Organization Address [facility]/[place] [address], * (ABNORMAL) POCT glucose (08/19/2024 8:54 AM PLASTIC SEWER) GLUCOSE POC 150(H) 70 - 99 MG/DL 08/19/2024 8:56 AM PLASTIC SEWER [facility] 08/19/2024 8:54 AM PLASTIC SEWER us Marciano Mora DO POCT ORDERABLES - DEVICE Fin al Result Performing Organization Address [facility] [place] [address], * XR CHEST PORTABLE (08/19/2024 8:16 AM PLASTIC SEWER) Anatomical Region Laterality Modality Chest Radiographic Marya ging 08/19/2024 8:17 AM PLASTIC SEWER Impressions 08/19/2024 8:18 AM PLASTIC SEWER IMPRESSION: 1. ??NO RADIOGRAPHIC EVIDENCE OF ACTIVE DISEASE IN THE CHEST. Signed: Joseph Doyle MD Referred By: ?? Interpreted By: Joseph Doyle MD, 08/19/2024 8:17 AM Narrative 08/19/2024 8:18 AM PLASTIC SEWER [address] [place] [address] PATIENT NAME: CEM MARSHALL EXAM: Chest one view DATE OF EXAM: 08/19/2024 COMPARISON EXAM: None INDICATION: Dyspnea TECHNIQUE: AP chest FINDINGS: Heart size within normal limits. ??Pulmonary vasculature unremarkable. ??No focal pulmonary parenchymal opacity. ??No pleural effusion. ??No hyperinflation. Procedure Note Joseph Doyle MD - 08/19/[address] [place] [address] PATIENT NAME: CEM MARSHALL EXAM: Chest one [...] CT ABD+PEL WO CON (08/19/2024 8:07 AM PLASTIC SEWER) Anatomical Region Laterality Modality Abdomen Computed Tomogra phy 08/19/2024 8:24 AM PLASTIC SEWER Impressions 08/19/2024 8:29 AM PLASTIC SEWER IMPRESSION: 1. No acute intra-abdominal or intrapelvic process identified. 2. Large amount of stool in the colon concordant with the history. 3. Coronary artery disease. 4. Cholelithiasis. Ordered By: MARCIANO MORA Interpreted By: Jeffery Prado MD, 08/19/2024 8:24 AM Narrative 08/19/2024 8:29 AM PLASTIC SEWER [address] [place] [address] Examination: CT of the abdomen and pelvis [...] Procedure Note Jeffery Prado MD - 08/19/[address] [place] [address] Examination: CT of the abdomen and pelvis [...] (ABNORMAL) PRO-BRAIN NATRIURETIC PEPTIDE (08/19/2024 8:01 AM PLASTIC SEWER) Only the most recent of2 resultswithin the time period is included. PRO-B TYPE NATRIURETIC PEPTIDE 907(H) <125 PG/ML 08/19/2024 8:27 AM PLASTIC SEWER [facility] Comment: CUT POINTS ESTABLISHED BY [...] 72% FOR ACUTE CHF. 08/19/2024 8:01 AM PLASTIC SEWER Marciano Mora DO LABORATORY Final Result [facility] [address] [place] [address], * (ABNORMAL) COMPREHENSIVE METABOLIC PANEL (08/19/2024 8:01 AM [facility]) Only the most recent of3 resultswithin the time period is included. SODIUM S/P/B 143 136 - 145 MMOL/L 08/19/2024 8:27 AM [facility] POTASSIUM S/P/B 4.8 3.5 - 5.1 MMOL/L 08/19/2024 8:27 AM [facility] Comment:SLIGHT HEMOLYSIS, RE SULT MAY BE AFFECTED. CHLORIDE S/P/B 106 98 - 107 MMOL/L 08/19/2024 8:27 AM [facility] CO2 30.2 21.0 - 32.0 MMOL/L 08/19/2024 8:27 AM [facility] GLUCOSE 77 70 - 99 MG/DL 08/19/2024 8:27 AM [facility] Comment: FASTING GLUCOSE 100 TO 125 MG/DL IS CONSISTENT WITH IMPAIRED FASTING GLUCOSE. FASTING GLUCOSE >125 MG/DL IS CONSISTENT WITH DIABETES. RANDOM GLUCOSE >200 MG/DL WITH HYPERGLYCEMIC SYMPTOMS IS CONSISTENT WITH DIABETES. PER ADA GUIDELINES BUN 37(H) 6 - 24 MG/DL 08/19/2024 8:27 AM [facility] CREATININE S/P/B 1.56(H) 0.55 - 1.02 MG/DL 08/19/2024 8:27 AM [facility] CALCIUM S/P/B 8.5 8.4 - 10.5 MG/DL 08/19/2024 8:27 AM [facility] BILIRUBIN TOTAL S/P/B 0.3 0.2 - 1.0 MG/DL 08/19/2024 8:27 AM [facility] Comment: THIS ASSAY IS NOT RECOMMENDED FOR PATIENTS UNDERGOING TREATMENT WITH ELTROMBOPAG DUE TO THE POTENTIAL FOR FALSELY ELEVATED RESULTS. ALKALINE PHOSPHATASE S/P/B 156(H) 39 - 100 U/L 08/19/2024 8:27 AM [facility] AST 24 15 - 37 U/L 08/19/2024 8:27 AM [facility] ALT 30 14 - 59 U/L 08/19/2024 8:27 AM [facility] TOTAL PROTEIN S/P/B 6.4 6.4 - 8.2 G/DL 08/19/2024 8:27 AM [facility] ALBUMIN S/P/B 2.6(L) 3.4 - 5.0 G/DL 08/19/2024 8:27 AM [facility] ANION GAP 6.8 5.0 - 15.0 MMOL/L 08/19/2024 8:27 AM [facility] OSMOLALITY (CALC) 303 MOSM/KG 025 8:27 AM [facility] Comment:REFERENCE RANGE NOT ESTABLISHED GFR ESTIMATE 41(L) >89 ML/MIN/1. 73 M2 08/19/2024 8:27 AM [facility] GFR NOTES GFR REFERENCE S: 08/19/2024 8:27 AM [facility] Comment: THE ESTIMATED GFR IS [...] FAILURE: <15 ml/min/1.73 m2 08/19/2024 8:01 AM PLASTIC SEWER us Marciano Mora DO LABORATORY Final Result [facility] [address] [place] [address], * (ABNORMAL) CBC W/DIFF AUTOMATED (08/19/2024 8:01 AM PLASTIC SEWER) Only the most recent of3 resultswithin the time period is included. WBC 6.63 4.00 - 10.80 x10'3/uL 08/19/2024 8:09 AM [facility] RBC 3.57(L) 4.10 - 5.40 x10'6/uL 08/19/2024 8:09 AM [facility] HGB 10.5(L) 12.0 - 16.0 G/DL 08/19/2024 8:09 AM [facility] HCT 33.4(L) 36.0 - 47.0 % 08/19/2024 8:09 AM [facility] MCV 93.6 78.0 - 100.0 FL 08/19/2024 8:09 AM [facility] MCH 29.4 27.0 - 31.0 PG 08/19/2024 8:09 AM [facility] MCHC 31.4(L) 33.0 - 36.0 G/DL 08/19/2024 8:09 AM [facility] RDW 13.8 11.5 - 14.5 % 08/19/2024 8:09 AM [facility] PLT 139(L) 150 - 350 x10'3/uL 08/19/2024 8:09 AM [facility] MPV 11.7(H) 7.4 - 10.4 FL 08/19/2024 8:09 AM [facility] CBC COMMENT NORMAL REFERENCE RANGE NOT ESTABLISHED FOR THE PROPORTIONAL LEUKOCYTE DIFFERENTIAL. 08/19/2024 8:09 AM [facility] NEUTROPHILS % 64.1 % 08/19/2024 8:09 AM [facility] LYMPHOCYTES % 23.8 % 08/19/2024 8:09 AM [facility] MONOCYTES % 8.3 % 08/19/2024 8:09 AM [facility] EOSINOPHILS % 2.9 % 08/19/2024 8:09 AM [facility] BASOPHILS % 0.6 % 08/19/2024 8:09 AM [facility] IMMATURE GRANS % 0.3 % 08/19/19 8:09 AM PLASTIC SEWER [facility] NRBC % 0.0 % 08/19/2024 8:09 AM [facility] ABS. NEUTROPHILS 4.25 1.60 - 8.30 x10'3/uL 08/19/2024 8:09 AM [facility] ABS. LYMPHOCYTES 1.58 0.80 - 4.70 x10'3/uL 08/19/2024 8:09 AM [facility] ABS. MONOCYTES 0.55 0.00 - 1.50 x10'3/uL 08/19/2024 8:09 AM [facility] ABS. EOSINOPHILS 0.19 0.00 - 0.40 x10'3/uL 08/19/2024 8:09 AM [facility] ABS. BASOPHILS 0.04 0.00 - 0.20 x10'3/uL 08/19/2024 8:09 AM [facility] ABS. IMMATURE GRANULOCYTES 0.02 0.00 - 0.03 x10'3/uL 08/19/2024 8:09 AM [facility] ABS. NUCLEATED RBC'S 0.00 0.00 - 0.01 x10'3/uL 08/19/2024 8:09 AM [facility] 08/19/2024 8:01 AM PLASTIC SEWER Marciano Mora DO LABORATORY Final Result [facility] [address] [place] [address], * TROPONIN, QUANT (08/19/2024 8:01 AM PLASTIC SEWER) TROPONIN I HIGH SENSITIVITY 14 0 - 51 ng/L 08/19/2024 8:27 AM PLASTIC SEWER [facility] 08/19/2024 8:01 AM PLASTIC SEWER us Marciano Mora DO LABORATORY Final Result Performing Organization Address [facility] de Phone Number [address] [address], * AMYLASE (08/19/2024 8:01 AM PLASTIC SEWER) AMYLASE S/P/B 43 25 - 115 UNITS/L 08/19/2024 8:27 AM PLASTIC SEWER [facility] 08/19/2024 8:01 AM PLASTIC SEWER us Marciano Mora DO LABORATORY Final Result Performing Organization Address [facility] de Phone Number [address] [address], * LIPASE (08/19/2024 8:01 AM PLASTIC SEWER) LIPASE 50 16 - 77 UNITS/L 08/19/2024 8:27 AM PLASTIC SEWER [facility] 08/19/2024 8:01 AM PLASTIC SEWER us Marciano Mora DO LABORATORY Final Result Performing Organization Address [facility] de Phone Number [facility] [address] [place] [address], * ECG 12 lead (08/19/2024 7:48 AM PLASTIC SEWER) Only the most recent of3 resultswithin the time period is included. 08/19/2024 7:48 AM PLASTIC SEWER Narrative [facility] - 08/19/2024 2:22 PM PLASTIC SEWER ? [facility] ?[address] [facility] [place], [place] ??[address] ? Test Date: ?2024-08-19 Pat Name: ? CEM MARSHALL ?Department: ?? 3 ? Room: ? EXAM 404 Gender: ? Female ? Unload Associate: ?? : ?1975 ? Requested By: MARCIANO MORA Order Number: [id number] ? Reading MD: ?? Zheng Reyes ? Measurements Intervals ?[place] ? Rate: ? 95 ? P: ?47 MI: ? 143 ?QRS: ?-11 QRSD: ? 87 ? T: ?114 QT: ? 350 ? QTc: ?440 ? Interpretive Statements SINUS RHYTHM POSSIBLE LEFT ATRIAL ENLARGEMENT POSSIBLE RIGHT VENTRICULAR CONDUCTION DELAY MODERATE T-WAVE ABNORMALITY, CONSIDER LATERAL ISCHEMIA TIC SEWER Procedure Note Zheng Reyes MD - 08/19/2024 [facility] [address] [place] [address] Test Date: 2024-08-19 Pat Name: CEM MARSHALL Department: 3 Room: EXAM 404 Gender: Female Unload Associate: : 1975 Requested By: MARCIANO MORA Order Number: [id number] Reading MD: Zheng Reyes Measurements Intervals [place] Rate: 95 P: 47 MI: 143 QRS: -11 QRSD: 87 T: 114 QT: 350 QTc: 440 Interpretive Statements SINUS RHYTHM POSSIBLE LEFT ATRIAL ENLARGEMENT POSSIBLE RIGHT VENTRICULAR CONDUCTION DELAY MODERATE T-WAVE ABNORMALITY, CONSIDER LATERAL ISCHEMIA TIC SEWER us Mraciano Mora DO ECG ORDERABLES Final Result [facility] * USV CAROTID DUPLEX MANPREET (07/29/2024 11:30 AM PLASTIC SEWER) Anatomical Region Laterality Modality Neck Ultrasound 08/01/2024 12:3 4 PM PLASTIC SEWER Impressions 08/01/2024 12:39 PM PLASTIC SEWER IMPRESSION: Since October, increase in the ICA/CCA [...] 08/01/2024 12:34 PM Narrative 08/01/2024 12:39 PM PLASTIC SEWER [address] [place] [address] EXAMINATION: BILATERAL CAROTID ARTERY DOPPLER ULTRASOUND EXAM [...] Procedure Note Pan Freedman MD - 08/01/[address] [place] [address] EXAMINATION: BILATERAL CAROTID ARTERY DOPPLER ULTRASOUND EXAM [...] MD, 08/01/2024 12:34 PM us Raúl Avalos STENCIL CUTTER MACHINE US VASC Fin al Result * MRI BRAIN WO CON (07/29/2024 10:59 AM PLASTIC SEWER) Anatomical Region Laterality Modality Head Magnetic Resonan ce 08/01/2024 12:3 9 PM PLASTIC SEWER Impressions 08/01/2024 12:44 PM PLASTIC SEWER IMPRESSION: No evidence of acute infarct, hematoma, or intracranial mass lesion. There are minimal foci of left periventricular white matter FLAIR hyperintensity. Differential would be chronic small vessel ischemic disease change or demyelinating process. These can be associated with migraines or memory issues. Ordered By: RAÚL AVALOS Interpreted By: Pan Freedman MD, 08/01/2024 12:39 PM Narrative 08/01/2024 12:44 PM PLASTIC SEWER [address] [place] [address] INDICATION: DX CVA, PT STATES SHE MIGHT [...] Pan Freedman MD - 08/01/[address] [facility] [address] [place] [address] INDICATION: DX CVA, PT STATES SHE MIGHT [...] Freedman MD, 08/01/2024 12:39 PM Raúl Avalos STENCIL CUTTER MACHINE MRI Fin al Result * ECG (07/10/2024 12:00 AM PLASTIC SEWER) 07/10/2024 us Doc Pccl Scanned SCANNING Final Result [facility] * IMAGE STUDY (07/10/2024) Anatomical Region Laterality Modality Other us Doc Pccl Scanned SCANNING Edited Result - Final * CBC, MANUAL DIFF (07/10/2024) Pathologist [facility] WBC 7.3 HGB 11.9 HCT 36.7 PLT 156 Narrative Resulting Agency Comment [facility] us Default History Genericprovider LABORATORY Final Result * (ABNORMAL) BASIC METABOLIC PANEL (06/28/2024 12:43 PM PLASTIC SEWER) Only the most recent of2 resultswithin the time period is included. Pathologist [facility] SODIUM S/P/B 141 136 - 145 MMOL/L 06/28/2024 1:04 PM [facility] POTASSIUM S/P/B 4.4 3.5 - 5.1 MMOL/L 06/28/2024 1:04 PM [facility] CHLORIDE S/P/B 102 98 - 107 MMOL/L 06/28/2024 1:04 PM [facility] CO2 29.1 21.0 - 32.0 MMOL/L 06/28/2024 1:04 PM [facility] GLUCOSE 133(H) 70 - 99 MG/DL 06/28/2024 1:04 PM [facility] Comment: FASTING GLUCOSE 100 TO 125 MG/DL IS CONSISTENT WITH IMPAIRED FASTING GLUCOSE. FASTING GLUCOSE >125 MG/DL IS CONSISTENT WITH DIABETES. RANDOM GLUCOSE >200 MG/DL WITH HYPERGLYCEMIC SYMPTOMS IS CONSISTENT WITH DIABETES. PER [employer] GUIDELINES BUN 29(H) 6 - 24 MG/DL 06/28/2024 1:04 PM [facility] CREATININE S/P/B 1.41(H) 0.55 - 1.02 MG/DL 06/28/2024 1:04 PM [facility] CALCIUM S/P/B 8.8 8.4 - 10.5 MG/DL 06/28/2024 1:04 PM [facility] ANION GAP 9.9 5.0 - 15.0 MMOL/L 06/28/2024 1:04 PM [facility] OSMOLALITY (CALC) 300 MOSM/KG 024 1:04 PM [facility] Comment:REFERENCE RANGE NOT ESTABLISHED GFR ESTIMATE 46(L) >89 ML/MIN/1. 73 M2 06/28/2024 1:04 PM PLAST[facility] GFR NOTES GFR REFERENCE S: 06/28/2024 1:04 PM PLASTIC SEWER [facility] Comment: THE ESTIMATED GFR IS [...] <15 ml/min/1.73 m2 06/28/2024 12:4 3 PM PLASTIC SEWER us Lorenza Inman MD [place] [address], * (ABNORMAL) SED RATE, ERYTHROCYTE (ESR) (06/10/2024 4:33 PM CDT) ESR 44(H) 0 - 20 MM/HR 06/10/2024 4:47 PM CDT [facility] 06/10/2024 4:33 PM CDT [facility] Final Result Performing Organization Address City/[facility]/ZIP Co de Phone Number [facility] [address] [place] [address], * C-REACTIVE PROTEIN (06/10/2024 4:33 PM CDT) C-REACTIVE PROTEIN 0.08 <0.30 mg/dL 06/10/2024 4:52 PM CDT [facility] 06/10/2024 4:33 PM CDT [facility] Final Result Performing Organization Address [facility]/ZIP Co de Phone Number [facility] [address] [place] [address], [place] [phone] * LIPID PANEL (09/15/2023 9:04 AM PLASTIC SEWER) CHOLESTEROL [id number] MG/DL 09/15/2023 12:44 PM PLASTIC SEWER [facility] Comment:DESIRABLE: <200 TRIGLYCERIDES 196 MG/DL 09/15/2023 12:44 PM PLASTIC SEWER [facility] Comment:150-199 BORDERLINE H IGH HDL 55 >49 MG/DL 09/15/2023 12:44 PM PLASTIC SEWER [facility] LDL-C 87 MG/DL 09/15/2023 12:44 PM PLASTIC SEWER [facility] Comment:<100 OPTIMAL VLDL CALCULATION 39 MG/DL 09/15/19 12:44 PM PLASTIC SEWER [facility] Comment:REFERENCE RANGE NOT ESTABLISHED CHOL/HDL RATIO 3.3 09/15/2023 12:44 PM PLASTIC SEWER [facility] Comment:REFERENCE RANGE NOT ESTABLISHED LDL/HDL 1.6 09/15/2023 12:44 PM PLASTIC SEWER [facility] Comment:REFERENCE RANGE NOT ESTABLISHED NON HDL CHOLESTEROL 126 MG/DL 09/15/2023 12:44 PM PLASTIC SEWER [facility] Comment:REFERENCE RANGE NOT ESTABLISHED 09/15/2023 9:04 AM PLASTIC SEWER Rose Conn MD LABORATORY Final Result [facility] [address] [place] [address], [place] [phone] [id number] from Last 3 Months or Most Recently Relevant to Health Maintenance Insurance [facility] MEDICAID Care Teams Rehab Services Aide Relationship Specialty Start Date End Date Ace Honeycutt MD [address] [place] [phone] PCP - General FAMILY PRACTICE 04/29/24 Rose Conn MD [address] [place] [address] Consulting Physician CARDIOVASCULAR DISEASE 09/07/23 Keith Goodwin MD [address] [place] [address] Consulting Physician INTERNAL MEDICINE 09/22/23
[2024-09-10 13:00] VITALS: BP 117/63; PULSE 106; RESP 17; O2SAT 97
[2024-09-10 13:02] LABS: Alanine Aminotransferase 89 U/L (14-59); Alkaline Phosphatase 279 U/L (46-116); Anion Gap 12 mmol/L (4-12); Aspartate Amino Transferase 103 U/L (15-37); Bilirubin,Total 0.3 mg/dL (0.00-1.00); Blood Urea Nitrogen 36 mg/dL (7-18); Calcium 8.8 mg/dL (8.5-10.1); Carbon Dioxide 27 mmol/L (21-32); Chloride 102 mmol/L (98-108); Estimated CRCL calculation 44 ml/min; Estimated Glomerular Filt Rate 34; Glucose 185 mg/dL (70-99); Osmolality Calculated 305 mOsm/kg (285-295); Potassium 4.7 mmol/L (3.5-5.1); Sodium 141 mmol/L (136-145); Total Protein 6.9 g/dL (6.4-8.2)
[2024-09-10] MEDS: ONDANSETRON HCL ODT 4 MG TABLET PO (13:18)
[2024-09-10] MEDS: HYDROmorphone HCL INJ (*CRX) 2 MG/ML VIAL 0.5 MG IM (13:18)
--- NOTE | 2024-09-10 13:50 | PC.NURSE ---
Patient taken down to Bathroom.
[2024-09-10 14:00] VITALS: BP 122/83; PULSE 106; RESP 16; O2SAT 100
[2024-09-10 14:27] LABS: Add Urine Microscopic? YES; Bilirubin Urine Negative (Negative); Blood Urine Negative (Negative); Color Urine Light Yellow (Yellow); Glucose Urine UA 3+ (Negative); Ketones Urine Negative (Negative); Leukocyte Esterase Ur Negative LEU/UL (Negative); Nitrate Urine Positive (Negative); Protein Urine Negative (Negative); Urobilinogen Urine 0.2 mg/dL (0.2-1.0)
[2024-09-10 14:38] LABS: Amorphous Sediment Urine Heavy; Appearance Urine Cloudy (Clear); Squamous Epithelial Cell Urine Moderate /hpf (Few)
[2024-09-10 14:39] LABS: Bacteria Urine 4+ /hpf; Budding Yeast Urine Present /hpf; Mucus Urine Few /lpf
[2024-09-10 14:44] VITALS: BP 122/83; PULSE 106; RESP 18; TEMP 36.7; O2SAT 100
[2024-09-10 15:00] VITALS: BP 122/83; PULSE 106; RESP 18; TEMP 36.7; O2SAT 100
--- NOTE | 2024-09-13 12:41 | PC.NURSE ---
FINAL URINE CULTURE RESULT: MIXED GENITAL KAVEH ISOLATED. NO CHANGE IN TX NEEDED PER DR CARDOSO
== END 2024-09-10 15:00 | disposition home or self-care (01) ==
PROVIDERS: Emergency Provider Internal Medicine Critical Care Medicine; PCP Physician Assistant
DX: J10.1 Influenza due to other identified influenza virus with other respiratory manifestations (principal); S22.32XA Fracture of one rib, left side, initial encounter for closed fracture; N76.0 Acute vaginitis; R74.01 Elevation of levels of liver transaminase levels; E11.22 Type 2 diabetes mellitus with diabetic chronic kidney disease; N18.32 Chronic kidney disease, stage 3b; E78.5 Hyperlipidemia, unspecified; Z20.822 Contact with and (suspected) exposure to COVID-19; W19.XXXA Unspecified fall, initial encounter; Y92.009 Unspecified place in unspecified non-institutional (private) residence as the place of occurrence of the external cause
CPT/HCPCS: 36415; 71046; 71100; 80053; 81001; 85025; 87086; 87637; 96372; 99284; A9270; J1171

== ENCOUNTER 2024-10-28 11:15 | Emergency (ER) | payer MEDICARE, MEDICAID, SELFPAY ==
[2024-10-28] VITALS (39 sets, daily range): BP systolic 93–125; BP diastolic 42–78; PULSE 89–110; RESP 18–29; TEMP 36.4–37.7; O2SAT 85–100
--- NOTE | ~2024-10-28 | CT_ITS ---
CTA chest PE protocol Ordering provider: Robert Garcia MD History: 48 years Female with . elevated d-dimer/sob/fatigue . Comparison: None. Technique: CT angiogram chest was performed following timed intravenous injection of contrast. Thin s lice axial images and reformatted coronal images were obtained. Three dimensional reformatted images of the chest were also obtained using a Ideapod workstation. . Automated exposure control and iterati ve reconstruction technique were employed. The dose-length product was 864.84 mGy-cm. 100 mL Omnipaqu e 350 was given IV. Findings: PULMONARY ARTERIES: No pulmonary embolus. VISUALIZED THORACIC INLET: Normal. MEDIASTINUM: Aorta/coronary arteries: Mild atheromatous disease. Heart/other: The heart is not enlarged. Lymph nodes: No mediastinal or hilar adenopathy. LUNGS: Bilateral pleural effusion with adjacent atelectasis versus pneumonia more on the left side. Patchy o pacities in the right upper lobe which may be focal pneumonia or groundglass nodules. Follow-up advis ed. 6 mm nodule is seen in the right lower lobe laterally No pulmonary masses. No pneumothorax. VISUALIZED UPPER ABDOMEN: Cholelithiasis. Otherwise, the visualized upper abdomen is normal. MUSCULOSKELETAL: Soft tissues: The superficial soft tissues are normal. Bones: Age appropriate degenerative changes of the spine. Fracture of the left 12th, 11th and 10th ri bs. IMPRESSION: 1. Bilateral pleural effusion with adjacent atelectasis versus pneumonia more on the left side. 2. Nodule in the right lower lobe. Follow-up in 6 months advised. 3. Patchy opacities in the right upper lobe which may indicate focal pneumonia or groundglass nodule s. 4. Cholelithiasis. 5. Multiple rib fractures in the left lower thorax. Reviewed, dictated and finalized at location A. IMPRESSION: 1. Bilateral pleural effusion with adjacent atelectasis versus pneumonia more on the left side. 2. Nodule in the right lower lobe. Follow-up in 6 months advised. 3. Patchy opacities in the right upper lobe which may indicate focal pneumonia or groundglass nodules. 4. Cholelithiasis. 5. Multiple rib fractures in the left lower thorax.
--- NOTE | ~2024-10-28 | XR_ITS ---
Portable chest x-ray Comparison: 09/10/2024 Clinical History: Shortness of breath, fatigue Findings: There is hazy left basilar airspace disease. Right lung essentially clear. Cardiomediasti nal silhouette is stable. Bones and soft tissues are unremarkable. Impression: Hazy left basilar airspace disease. Correlate for asymmetric pulmonary edema/atelectasis versus pneum onia. Reviewed, dictated and finalized at [facility]. Impression: Hazy left basilar airspace disease. Correlate for asymmetric pulmonary edema/at electasis versus pneumonia.
--- NOTE | 2024-10-28 11:20 | ED_ITS ---
HPI - SOB/Dyspnea General Chief Complaint: Shortness of Breath/Dyspnea Stated Complaint: shortness of breath Time Seen by Provider: 10/28/24 11:20 Source: patient Mode of arrival: EMS Limitations: no limitations History of Present Illness HPI Narrative: patient is a 48-year-old female with shortness of breath and cough with congestion for the past month. Patient was recently in the hospital at [facility] for similar symptoms. She is on 2 L nasal cannula oxygen chronically. She has a Garcia catheter placed 2 weeks ago for the chronic CHF in Lasix use per patient. no chest pain. MD elicited complaint: shortness of breath and cough Pertinent past history: COPD, congestive heart failure, diabetes, pneumonia, sepsis and other ( Hypertension) Onset (ago): month(s) ( 1) Context: recent illness Timing: constant Severity: moderate Exacerbating factors: nothing Relieving factors: nothing Known history of: COPD, congestive heart failure and diabetes Associated symptoms: cough, sputum production and chest congestion Treatment prior to arrival: oxygen, bronchodilator ( via EMS) and diuretics Related Data Home oxygen amount: 2 liters Home Medications ?Medication ?Instructions ?Recorded ?Confirmed ?Last Taken ?Type atorvastatin 80 mg tablet 80 mg PO DAILY 07/26/23 01/02/24 08/28/23 History bumetanide 1 mg tablet See Rx Instructions .Route .COMPLEX 07/26/23 01/02/24 08/28/23 History celecoxib 200 mg capsule 200 mg PO BID 07/26/23 01/02/24 08/28/23 History dapagliflozin propanediol 10 mg 10 mg PO DAILY 07/26/23 01/02/24 08/28/23 History tablet (Farxiga) insulin detemir U-100 100 unit/mL 46 unit subcut DAILY 07/26/23 01/02/24 08/28/23 History subcutaneous solution (Levemir U-100 Insulin) insulin lispro 100 unit/mL See Rx Instructions .Route .COMPLEX 07/26/23 01/02/24 08/28/23 History subcutaneous solution (Humalog U-100 Insulin) metoprolol succinate 25 mg 25 mg PO DAILY 07/26/23 01/02/24 08/28/23 History tablet,extended release 24 hr aspirin 81 mg PO DAILY 10/29/23 01/02/24 Unknown History ezetimibe 10 mg tablet 10 mg PO DAILY 10/29/23 01/02/24 Unknown History gabapentin 400 mg capsule See Rx Instructions .Route .COMPLEX 10/29/23 01/02/24 Unknown History Allergies Allergy/AdvReac Type Severity Reaction Status Date / Time cephalexin (From Keflex) Allergy Unknown Unknown Verified 10/28/24 11:25 codeine Allergy Unknown Verified 10/28/24 11:25 erythromycin base Allergy Unknown Verified 10/28/24 11:25 Review of Systems 2 Review of Systems: All systems reviewed & are unremarkable except as noted in HPI and below Constitutional: Constitutional: Reports no additional constitutional complaints Eyes: Eyes: Reports no additional eye complaints ENT: Reports system reviewed and no additional complaints, except as documented Cardiovascular: Cardiovascular: Reports no additional cardiovascular complaints Respiratory: Respiratory: Reports no additional respiratory complaints Gastrointestinal: Gastrointestinal: Reports no additional gastrointestinal complaints Genitourinary: Genitourinary: Reports no additional female genitourinary complaints Musculoskeletal: Musculoskeletal: Reports no additional musculoskeletal complaints Integumentary/Breasts: Skin/Breast: Reports system reviewed and no additional complaints, except as docu Neurologic: Reports system reviewed and no additional complaints, except as documented Psychiatric: Psychiatric: Reports no additional psychiatric complaints Endocrine: Endocrine: Reports no additional endocrine complaints Hematologic/Lymphatic: Hematologic/Lymphatic: Reports no additional hematologic/lymphatic complaints Allergic/Immunologic: Allergic/Immunologic: Reports no additional allergic/immunologic complaints PMFSH Past Medical History Medical History Dyslipidemia Diabetes mellitus Exam 2 Const: General: ill appearing Nutritional Appearance: well nourished O rientation/consciousness: patient oriented x3 Limitations: no limitations HENMT: Head: normal to inspection Ears: external ears normal F pankaj/Nose/Sinus: Normal external nose present Eyes: Conjunctivae: conjunctivae normal Pupils: Equal, round and reactive pupils present EOM: EOMs intact bilaterally Neck: Neck: normal visual inspection Chest: Chest palpation & inspection: normal inspection of the chest Resp: Effort & Inspection: normal respiratory effort, not labored, no retractions, not tachypneic and no use of accessory muscles Auscultation: not clear to auscultation bilaterally, crackles, rales, rhonchi, no wheezes, breath sounds present and diminished lung sounds Cardio: Rate: regular rate Rhythm: regular rhythm Heart sounds: no murmurs GI: Inspection: non-distended GI Palp: Yes Soft to palpation A uscultation: normal bowel sounds Rectal Exam: normal sphincter tone and No Abnormal stool present Other: pending heme stool testing : General: Yes bladder normal to palpation Urinary Catheter: Urinary Catheter: patent and draining Back/Spine/Pelvis: Back: no CVA tenderness Skin: General skin exam: normal color Rashes: no rashes Wounds: no wounds Neuro: General: patient oriented x3 Cranial nerves: Yes Nystagmus not present Speech: normal speech Extrem: General: normal to inspection Psych: Mental Status: mental status grossly normal Affect: normal affect Attitude: cooperative Course Vital Signs Vital signs: Vital Signs Temperature 36.4 C 10/28/24 11:15 Pulse Rate 106 H 10/28/24 11:15 Respiratory Rate 18 10/28/24 11:15 Blood Pressure 107/59 L 10/28/24 11:15 Pulse Oximetry 100 10/28/24 11:15 Oxygen Delivery Nasal Cannula 10/28/24 11:15 Oxygen Flow Rate 2 10/28/24 11:15 Temperature 36.4 C 10/28/24 11:15 Pulse Rate 106 H 10/28/24 11:15 Respiratory Rate 18 10/28/24 11:15 Blood Pressure 107/59 L 10/28/24 11:15 Pulse Oximetry 99 10/28/24 11:26 Oxygen Delivery Nasal Cannula 10/28/24 11:26 Oxygen Flow Rate 2 10/28/24 11:26 MDM - SOB/Dyspnea MDM Narrative Medical decision making narrative: patient is a 48-year-old female with multiple medical problems here with cough and congestion with shortness of breath over the past month. We will do a extensive pulmonary workup. Patient is very sickly for her young age. She uses oxygen at this point chronically and has a Garcia catheter in place. She will need transfer back to [facility]. In lieu of significant anemia and shortness of breath, we will not use blood thinning measures for the non-STEMI at this exact time. We will treat the pneumonia sepsis at this time with Levaquin due to the allergies. Blood cultures pending. Lab Data Attestation: I reviewed the patient's lab results. 10/28/24 12:31 10/28/24 12:34 Labs: Lab Results 03/21/25 03/21/25 03/21/25 Range/Units 11:39 12:31 12:34 WBC 8.6 (4.8-10.8) K/mm3 RBC 2.74 L (4.20-5.40) M/mm3 Hgb 7.9 L (12.0-15.0) g/dL Hct 27.1 L (35.0-49.0) % MCV 98.9 (78.0-102.0) fL MCH 28.8 (27.0-31.0) pg MCHC 29.2 L (32-36) g/dL RDW 17.4 H (11.6-14.4) % Plt Count 233 (150-420) K/mm3 MPV 11.6 (9.2-11.8) fl Immature Gran % (Auto) 0.8 H (0.0-0.0) % Neut % (Auto) 71.3 H (50.0-70.0) % Lymph % (Auto) 13.7 L (18.0-42.0) % Dup[place] % (Auto) 8.7 (2.0-11.0) % Eos % (Auto) 4.6 (1.0-6.0) % Baso % (Auto) 0.9 (0.0-1.0) % Lymph # (Auto) 1.18 (1.10-4.50) K/mm3 Dup[place] # (Auto) 0.75 (0.10-0.90) K/mm3 Eos # (Auto) 0.40 (0.02-0.50) K/mm3 Baso # (Auto) 0.08 (0.00-0.10) K/mm3 Abs Immat Gran (auto) 0.07 H (0.00-0.00) K/mm3 Absolute Neuts (auto) 6.14 (1.70-7.20) K/mm3 Absolute Nucleated RBC 0.02 H (0.00-0.00) K/mm3 Nucleated RBC % 0.2 H (0-0.0) % PT (9.50-12.1) Seconds INR APTT (23.9-30.70) Sec D-Dimer (0.19-0.50) mg/L Sodium 138 (136-145) mmol/L Potassium 5.0 (3.5-5.1) mmol/L Chloride 103 (98-108) mmol/L Carbon Dioxide 26 (21-32) mmol/L Anion Gap 9 (4-12) mmol/L BUN 68 H (7-18) mg/dL Creatinine 1.50 H (0.55-1.02) mg/dL Estim Creat Clear Calc 47 ml/min Estimated GFR 37 L (59 - ) Glucose 204 H (70-99) mg/dL Calculated Osmolality 311 H (285-295) mOsm/kg Lactic Acid (0.4-2.0) mmol/L Calcium 9.2 (8.5-10.1) mg/dL Total Bilirubin 0.7 (0.00-1.00) mg/dL AST 21 (15-37) U/L ALT 20 (14-59) U/L Alkaline Phosphatase 183 H (46-116) U/L Troponin I (0.00-60.4) ng/L NT-Pro-B Natriuret Pep 49128 H (0-125) pg/mL Total Protein 7.6 (6.4-8.2) g/dL Albumin 2.0 L (3.4-5.0) g/dL Stool Occult Blood (Negative) Influenza A (RT-PCR) Negative (Negative) Influenza B (RT-PCR) Negative (Negative) RSV (RT-PCR) Negative (Negative) SARS-CoV-2 RNA (RT-PCR) Negative (Negative) 10/28/24 10/28/24 10/28/24 Range/Units 12:35 12:59 15:33 WBC (4.8-10.8) K/mm3 RBC (4.20-5.40) M/mm3 Hgb (12.0-15.0) g/dL Hct (35.0-49.0) % MCV (78.0-102.0) fL MCH (27.0-31.0) pg MCHC (32-36) g/dL RDW (11.6-14.4) % Plt Count (150-420) K/mm3 MPV (9.2-11.8) fl Immature Gran % (Auto) (0.0-0.0) % Neut % (Auto) (50.0-70.0) % Lymph % (Auto) (18.0-42.0) % Dupage % (Auto) (2.0-11.0) % Eos % (Auto) (1.0-6.0) % Baso % (Auto) (0.0-1.0) % Lymph # (Auto) (1.10-4.50) K/mm3 Dupage # (Auto) (0.10-0.90) K/mm3 Eos # (Auto) (0.02-0.50) K/mm3 Baso # (Auto) (0.00-0.10) K/mm3 Abs Immat Gran (auto) (0.00-0.00) K/mm3 Absolute Neuts (auto) (1.70-7.20) K/mm3 Absolute Nucleated RBC (0.00-0.00) K/mm3 Nucleated RBC % (0-0.0) % PT 10.5 (9.50-12.1) Seconds INR 0.9 APTT 25.6 (23.9-30.70) Sec D-Dimer 2.34 H* (0.19-0.50) mg/L Sodium (136-145) mmol/L Potassium (3.5-5.1) mmol/L Chloride (98-108) mmol/L Carbon Dioxide (21-32) mmol/L Anion Gap (4-12) mmol/L BUN (7-18) mg/dL Creatinine (0.55-1.02) mg/dL Estim Creat Clear Calc ml/min Estimated GFR (59 - ) Glucose (70-99) mg/dL Calculated Osmolality (285-295) mOsm/kg Lactic Acid 0.9 (0.4-2.0) mmol/L Calcium (8.5-10.1) mg/dL Total Bilirubin (0.00-1.00) mg/dL AST (15-37) U/L ALT (14-59) U/L Alkaline Phosphatase (46-116) U/L Troponin I 755.6 H* (0.00-60.4) ng/L NT-Pro-B Natriuret Pep (0-125) pg/mL Total Protein (6.4-8.2) g/dL Albumin (3.4-5.0) g/dL Stool Occult Blood Negative (Negative) Influenza A (RT-PCR) (Negative) Influenza B (RT-PCR) (Negative) RSV (RT-PCR) (Negative) SARS-CoV-2 RNA (RT-PCR) (Negative) Imaging Data Attestation: I personally reviewed and interpreted this imaging study as follows: Radiologist's impression: Chest x-ray shows Impression: Hazy left basilar airspace disease. Correlate for asymmetric pulmonary edema/atelectasis versus pneumonia. CTA of the chest shows IMPRESSION: 1. Bilateral pleural effusion with adjacent atelectasis versus pneumonia more on the left side. 2. Nodule in the right lower lobe. Follow-up in 6 months advised. 3. Patchy opacities in the right upper lobe which may indicate focal pneumonia or groundglass nodules. 4. Cholelithiasis. 5. Multiple rib fractures in the left lower thorax. ( patient said she fell last month ) ECG Data EKG #1: Attestation: I personally reviewed and interpreted this ECG as follows: EKG Interpretation: tachycardia, sinus rhythm, no ectopy, non-specific ST changes, normal QRS, normal QT and NL axis Discharge Plan Discharge Clinical Impression: Acute non-ST elevation myocardial infarction (NSTEMI) Anemia Qualifiers: Anemia type: other cause Other causes of anemia: other cause, not classified Q ualified Code(s): D64.89 - Other specified anemias Acute exacerbation of CHF (congestive heart failure) Qualifiers: Heart failure type: unspecified Qualified Code(s): I50.9 - Heart failure, unspecified Pneumonia Qualifiers: Pneumonia type: due to unspecified organism Laterality: unspecified laterality Lung location: unspecified part of lung Qualified Code(s): J18.9 - Pneumonia, unspecified organism Sepsis Qualifiers: Sepsis type: sepsis due to unspecified organism Sepsis acute organ dysfunction status: with acute organ dysfunction Severe sepsis acute organ dysfunction type: acute respiratory failure Acute respiratory failure type: with hypoxia Severe sepsis shock status: without septic shock Qualified Code(s): A41.9 - Sepsis, unspecified organism Closed rib fracture Qualifiers: Encounter type: initial encounter Rib fracture type: multiple ribs Laterality: unspecified laterality Qualified Code(s): S22.49XA - Multiple fractures of ribs, unspecified side, initial encounter for closed fracture Patient Disposition: Acute Care Hospital Condition: Guarded Prognosis Patient Language: Syriac Prescriptions: No Action gabapentin 400 mg capsule See Rx Instructions .ROUTE .COMPLEX Rx Instructions: Take 1 capsule in the morning Take 1 capsule in the afternoon Take 3 capsules at bedtime ezetimibe 10 mg tablet 10 mg PO DAILY aspirin 81 mg PO DAILY celecoxib 200 mg Capsule 200 mg PO BID atorvastatin 80 mg Tablet 80 mg PO DAILY bumetanide 1 mg Tablet See Rx Instructions .ROUTE .COMPLEX Rx Instructions: Take 2 tabs in mornings and 1 every evening metoprolol succinate 25 mg Tablet Extended Release 24 Hr 25 mg PO DAILY insulin lispro [Humalog U-100 Insulin] 100 unit/mL Solution See Rx Instructions .ROUTE .COMPLEX Rx Instructions: 8 units + SSI TID c meals Levemir U-100 Insulin 100 unit/mL Solution 46 unit SUBCUT DAILY dapagliflozin propanediol [Farxiga] 10 mg Tablet 10 mg PO DAILY promethazine 12.5 mg tablet 12.5 mg PO Q8H PRN (Reason: nausea and vomiting) Qty: 10 0RF Rx Instructions: 1-2 tabs per dose clindamycin HCl 300 mg capsule 300 mg PO Q6H 10 Days Qty: 40 0RF docusate sodium [Colace] 100 mg capsule 100 mg PO BID PRN (Reason: constipation) Qty: 14 0RF losartan [Cozaar] 25 mg tablet 25 mg PO DAILY Qty: 30 0RF fluconazole 150 mg tablet 150 mg PO DAILY Qty: 1 1RF Rx Instructions: administer on day 1 of therapy Follow-up/Referrals: Lance,MELLISSA Kent [Primary Care Provider] - Time of Disposition: 15:23
--- NOTE | 2024-10-28 11:37 | ECG_ITS ---
Test Date: 2024-10-28 11:47:14 Measurements Intervals [place] Rate: 103 P: 57 FL: 142 QRS: 47 QRSD: 92 T: 137 QT: 340 QTc: 446 Interpretive Statements SINUS TACHYCARDIA LEFT VENTRICULAR HYPERTROPHY AND ST-T POLO Compared to ECG 07/10/2024 08:42:51 NO SIGNIFICANT CHANGES Electronically Signed On 10-28-2024 18:17:45 CDT by John Freedman M.D.
--- OUTSIDE RECORDS SUMMARY | 2024-10-28 12:31 | XMS_ITS | Clinical Summary ---
Author Organization [facility] Address [address] [facility] [place] [address] Phone Care Team Providers Care Station Examiner Name Role Phone Arnoldo Gary MD Primary Care Provider [phone] Allergies Active Allergy Reactions Criticality Noted Date [...] migh t be different from the original. EMERGENCY MANAGEMENT CONSULTANT: DR. 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 Gender Identity Not on file Sexual Orientation Not on file Occupation Industry Job Start Date Job End Date Not on file Not on file Not on file Not on file Last Filed Vital Signs Vital Sign Reading Time Taken Comments Blood Pressure 100/53 04/29/2022 9:30 AM CDT Pulse 93 04/29/2022 9:30 AM CDT Temperature 36.4 C (97.5 F) 04/29/2022 9:30 AM CDT Respiratory Rate 18 04/29/2022 9:30 AM CDT [...] of 3 - 19+ 3-dose series) 1993 BREAST CANCER SCREENING 2014 DIABETES MICROALBUMIN ANNUAL [...] (#1) 2024 Medical Devices Implanted Type Area Contracting Support Specialist Device Identifier Shelf Expiration Date Model / Serial / Lot Tfna Fenestrated Screw 90mm Implanted:Qty: 1 on 03/27/2021 by Bob Deras MD at [facility] Screw Left: Hip [facility] 02/06/2031 04.038.19 0 S / / [id number] Screw Loc Stardrv 5x62mm Strl 04.005.552s - Sload 23 Implanted:Qty: 1 on 03/27/2021 by Bob Deras MD at [facility] Screw Left: Hip [employer] 04.005.55 2 S / LOAD 03/14/21 11mm/125deg Ti Js Tfna 380mm/Left Implanted:Qty: 1 on 03/27/2021 by Bob Deras MD at [facility] Left: Hip [employer] [place] 01/07/2030 04.037.12 9 S / / [id number] Description:All Synthes comp onents are processed on requisition, [id number]. Procedures Procedure Name Priority Date/Time Associated Diagnosis Comments HEMOGLOBIN A1C Stat 04/25/2022 3:22 AM CDT LIPID PANEL Routine 04/20/2021 5:30 AM CDT MICROALBUMIN/CREATIN INE RATIO, RANDOM UR Routine 06/26/2014 Diabetes mellitus ([facility]) from Last 3 Months or Most Recently Relevant to Health Maintenance Results * (ABNORMAL) HEMOGLOBIN A1C (04/25/2022 3:22 AM CDT) HEMOGLOBIN A1C 8.2(H) <=5.6 % 04/25/2022 4:13 AM CDT [facility] [place] EST. AVG GLUCOSE, A1C 189 mg/dL 04/25/2022 4:13 AM CDT [facility] Blood Venipuncture / Unknown 04/25/2022 3:22 AM CDT 04/25/2022 3:43 AM CDT Narrative [facility] - 04/25/2022 4:13 AM CDT HGB A1C INTERPRETATION NORMAL: <5.7% PRE-DIABETES: 5.7 - 6.4% DIABETES: 6.5% OR GREATER us Alphonse Samsno MD CHEMISTRY ORDERABLES Final Result [facility] CLIA # [id number] [address] [place] [id number] * (ABNORMAL) LIPID PANEL (04/20/2021 5:30 AM CDT) CHOLESTEROL 166 <200 mg/dL 04/20/2021 6:55 AM T [facility] TRIGLYCERIDE 83 <150 mg/dL 04/20/2021 6:55 AM T [facility] HDL 40 40 - 59 mg/dL 04/20/2021 6:55 AM T [facility] LDL CALCULATED 109(H) <100 mg/dL 04/20/2021 6:55 AM T [facility] NON-HDL CHOLESTEROL 126 <130 mg/dL 04/20/2021 6:55 AM T [facility] Blood Venipuncture / Unknown 04/20/2021 5:30 AM CDT 04/20/2021 6:21 AM CDT [facility] - 04/20/2021 6:55 AM CDT TOTAL CHOLESTEROL mg/dL Desirable <200 Borderline high 200-239 High >=240 TRIGLYCERIDES mg/dL Normal <150 Borderline high 150-199 High 200-499 Very high >=500 HDL CHOLESTEROL mg/dL Low <40 Normal 40-59 Desirable >=60 NON HDL CHOLESTEROL mg/dL Optimal <130 Near Optimal 130-159 Borderline High 160-189 Very High >=190 CALCULATED LDL mg/dL LDL <70, OPTIMAL if have Atherosclerotic cardiovascular disease (ASCVD) or intermediate or higher (>7.5%) 10 year risk of ASCVD including most adults with diabetes. LDL <100, Optimal in adult patients with low (<7.5%) 10 year ASCVD risk LDL 100-160, Suboptimal LDL >160, High LDL >190, Very high ATPIII Guidelines Reference Ranges for Lipid Panels (NCEP/AMA) . [facility] Tawana Kelly MD CHEMISTRY ORDERABLES Final Result [facility] Cell Therapy [facility]# [id number] [address] [facility] [place] [id number] * MICROALBUMIN/CREATININE RATIO, RANDOM UR (06/26/2014) Urine specimen (specimen) us Orquidea Delgado MD URINE ORDERABLES Final Result [facility] [place] [facility] # [id number] [address] [place] [address] from Last 3 Months or Most Recently Relevant to Health Maintenance Additional Health Concerns Infection Onset Date Last Indicated MRSA Comment:hx MRSA documented per 12/22/17 infectious disease screening form - Cierra Becker RN 12/24/2017 05/09/2024 Insurance MEDICAID [facility] MEDICARE Advance Directives For more information, please contact: [phone] * Full Code (Latest Code Status on File) Date Activated Date Inactivated Comments 04/25/2022 2:46 AM 04/29/2022 5:00 PM * Full Code Date Activated Date Inactivated Comments 05/08/2021 5:35 PM 05/24/2021 5:02 PM * Full Code Date Activated Date Inactivated Comments 03/27/2021 7:30 AM 05/08/2021 5:20 PM Care Teams Station Examiner Relationship Specialty Start Date End Date Arnoldo Gary MD [address] [place] [address] PCP - General Internal Medicine 03/27/21
--- OUTSIDE RECORDS SUMMARY | 2024-10-28 12:31 | XMS_ITS | Encounter Summary ---
Author Organization [facility] Healthcare Address [address] [place] [address] Care Team Providers Care Operations Dispatcher Name Role Phone Arnoldo Gary MD Primary Care Provider [phone] Miscellaneous, Not In File Primary Care Provider Unavailable Donte Lucas Primary Care Provider Encounter Details Date Type Department Care Team (Late st Contact Info) Description 09/26/2021 Telephone [facility] Case Management [address] [place] [address] Leydi Bush, RN Social History Tobacco Use [...] any clubs o r organizations such as zoroastrianism groups, unions, fraternal or athletic groups, or [...] on file 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 difficile suspected 09/25/2024 09/26/202409/26 4:13 AM CNA PCT documented as of this encounter Care Teams Operations Dispatcher Relationship Specialty Start Date End Date Arnoldo Gary MD [address] [place] [address] PCP - General 12/22/17 05/23/23 Miscellaneous, Not In File PCP - General 05/24/23 Donte Lucas PA [address] [place] [id number] PCP - General Physician Route Delivery Clerk 08/26/24 documented as of this encounter
--- OUTSIDE RECORDS SUMMARY | 2024-10-28 12:32 | XMS_ITS | Clinical Summary ---
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 POCT GLUCOSE DEVICE Routine 09/15/2024 9 :09 PM CAN FILLING ROOM SWEEPER POCT GLUCOSE DEVICE Routine 09/15/2024 7 :41 PM CAN FILLING ROOM SWEEPER POCT GLUCOSE DEVICE Routine 09/15/2024 5 :12 PM CAN FILLING ROOM SWEEPER POCT GLUCOSE DEVICE Routine 09/15/2024 3 :05 PM CAN FILLING ROOM SWEEPER AEROBIC CULTURE AND GRAM STAIN Routine 09/15/2024 1:57 PM CAN FILLING ROOM SWEEPER TRANSESOPHAGEAL ECHO (DEMI) W DOPPLER/CF WO CONTRAST Routine 09/15/2024 1:43 PM CAN FILLING ROOM SWEEPER POCT GLUCOSE DEVICE Routine 09/15/2024 1 :05 PM CAN FILLING ROOM SWEEPER XR CHEST 1 VIEW Critical/Life- Threatening 09/15/2024 11:41 AM CAN FILLING ROOM SWEEPER BLOOD GAS, ARTERIAL STAT 09/15/2024 11:34 AM CAN FILLING ROOM SWEEPER POCT GLUCOSE DEVICE Routine 09/15/2024 11:07 AM CAN FILLING ROOM SWEEPER INTUBATION Routine 09/15/2024 10:31 AM CAN FILLING ROOM SWEEPER Toxic metabolic encephalopathy MONITOR EXHALED CO2 Routine 09/15/2024 10:30 AM CAN FILLING ROOM SWEEPER POCT GLUCOSE DEVICE Routine 09/15/2024 9 :16 AM CAN FILLING ROOM SWEEPER POCT GLUCOSE DEVICE Routine 09/15/2024 7 :06 AM CAN FILLING ROOM SWEEPER POCT GLUCOSE DEVICE Routine 09/15/2024 5 :27 AM CAN FILLING ROOM SWEEPER POCT GLUCOSE DEVICE Routine 09/15/2024 3 :51 AM CAN FILLING ROOM SWEEPER APTT Timed 09/15/2024 3:48 AM CAN FILLING ROOM SWEEPER XR CHEST 1 VIEW IP Routine 09/15/2024 3:41 AM CAN FILLING ROOM SWEEPER EGFR Routine 09/15/2024 1:50 AM CAN FILLING ROOM SWEEPER PHOSPHORUS Routine 09/15/2024 1:50 AM CAN FILLING ROOM SWEEPER BILIRUBIN, DIRECT Routine 09/15/2024 1:5 0 AM CAN FILLING ROOM SWEEPER COMPREHENSIVE METABOLIC PANEL Routine 09/15/2024 1:50 AM CAN FILLING ROOM SWEEPER CBC WITHOUT DIFFERENTIAL Routine 09/15/2024 1:50 AM CAN FILLING ROOM SWEEPER MAGNESIUM Routine 09/15/2024 1:50 AM CAN FILLING ROOM SWEEPER POCT GLUCOSE DEVICE Routine 09/15/2024 12:53 AM CAN FILLING ROOM SWEEPER POCT GLUCOSE DEVICE Routine 09/14/2024 11:15 PM CAN FILLING ROOM SWEEPER APTT Timed 09/14/2024 9:19 PM CAN FILLING ROOM SWEEPER POCT GLUCOSE DEVICE Routine 09/14/2024 9 :16 PM CAN FILLING ROOM SWEEPER POCT GLUCOSE DEVICE Routine 09/14/2024 7 :20 PM CAN FILLING ROOM SWEEPER POCT GLUCOSE DEVICE Routine 09/14/2024 6 :16 PM CAN FILLING ROOM SWEEPER POCT GLUCOSE DEVICE Routine 09/14/2024 4 :55 PM CAN FILLING ROOM SWEEPER POCT GLUCOSE DEVICE Routine 09/14/2024 4 :10 PM CAN FILLING ROOM SWEEPER POCT GLUCOSE DEVICE Routine 09/14/2024 3 :03 PM CAN FILLING ROOM SWEEPER EGFR Timed 09/14/2024 1:05 PM CAN FILLING ROOM SWEEPER RENAL FUNCTION PANEL Timed 09/14/2024 1:05 PM CAN FILLING ROOM SWEEPER APTT Timed 09/14/2024 1:05 PM CAN FILLING ROOM SWEEPER POCT GLUCOSE DEVICE Routine 09/14/2024 12:55 PM CAN FILLING ROOM SWEEPER POCT GLUCOSE DEVICE Routine 09/14/2024 12:01 PM CAN FILLING ROOM SWEEPER POCT GLUCOSE DEVICE Routine 09/14/2024 11:05 AM CAN FILLING ROOM SWEEPER POCT GLUCOSE DEVICE Routine 09/14/2024 10:04 AM CAN FILLING ROOM SWEEPER BLOOD CULTURE STAT 09/14/2024 9:42 AM CAN FILLING ROOM SWEEPER BLOOD CULTURE STAT 09/14/2024 9:42 AM CAN FILLING ROOM SWEEPER POCT GLUCOSE DEVICE Routine 09/14/2024 8 :56 AM CAN FILLING ROOM SWEEPER BLOOD GAS, ARTERIAL STAT 09/14/2024 8 :08 AM CAN FILLING ROOM SWEEPER POCT GLUCOSE DEVICE Routine 09/14/2024 7 :50 AM CAN FILLING ROOM SWEEPER APTT Timed 09/14/2024 6:06 AM CAN FILLING ROOM SWEEPER POCT GLUCOSE DEVICE Routine 09/14/2024 4 :10 AM CAN FILLING ROOM SWEEPER XR CHEST 1 VIEW IP Routine 09/14/2024 3:10 AM CAN FILLING ROOM SWEEPER MANUAL DIFFERENTIAL Routine 09/14/2024 1 :59 AM CAN FILLING ROOM SWEEPER EGFR Routine 09/14/2024 1:59 AM CAN FILLING ROOM SWEEPER PHOSPHORUS Routine 09/14/2024 1:59 AM CAN FILLING ROOM SWEEPER BILIRUBIN, DIRECT Routine 09/14/2024 1:5 9 AM CAN FILLING ROOM SWEEPER COMPREHENSIVE METABOLIC PANEL Routine 09/14/2024 1:59 AM CAN FILLING ROOM SWEEPER CBC WITHOUT DIFFERENTIAL Routine 09/14/2024 1:59 AM CAN FILLING ROOM SWEEPER MAGNESIUM Routine 09/14/2024 1:59 AM CAN FILLING ROOM SWEEPER POCT GLUCOSE DEVICE Routine 09/14/2024 12:41 AM CAN FILLING ROOM SWEEPER APTT Timed 09/13/2024 9:58 PM CAN FILLING ROOM SWEEPER XR ABDOMEN ERECT AND OR DECUBITS 2 VIEWS IP Routine 09/13/2024 9:41 PM CAN FILLING ROOM SWEEPER POCT GLUCOSE DEVICE Routine 09/13/2024 7 :57 PM CAN FILLING ROOM SWEEPER EGFR Timed 09/13/2024 6:33 PM CAN FILLING ROOM SWEEPER RENAL FUNCTION PANEL Timed 09/13/2024 6:33 PM CAN FILLING ROOM SWEEPER ECG 12-LEAD STAT 09/13/2024 5:24 PM CAN FILLING ROOM SWEEPER POCT GLUCOSE DEVICE Routine 09/13/2024 4 :29 PM CAN FILLING ROOM SWEEPER POCT GLUCOSE DEVICE Routine 09/13/2024 3 :18 PM CAN FILLING ROOM SWEEPER POCT GLUCOSE DEVICE Routine 09/13/2024 2 :29 PM CAN FILLING ROOM SWEEPER APTT Timed 09/13/2024 2:28 PM CAN FILLING ROOM SWEEPER POCT GLUCOSE DEVICE Routine 09/13/2024 1 :10 PM CAN FILLING ROOM SWEEPER EGFR Timed 09/13/2024 12:22 PM CAN FILLING ROOM SWEEPER PHOSPHORUS Timed 09/13/2024 12:22 PM CAN FILLING ROOM SWEEPER MAGNESIUM Timed 09/13/2024 12:22 PM CAN FILLING ROOM SWEEPER BASIC METABOLIC PANEL Timed 09/13/2024 12:22 PM CAN FILLING ROOM SWEEPER POCT GLUCOSE DEVICE Routine 09/13/2024 12:20 PM CAN FILLING ROOM SWEEPER US CAROTIDS DUPLEX BILATERAL IP Routine 09/13/2024 11:55 AM CAN FILLING ROOM SWEEPER TRANSTHORACIC ECHO (TTE) COMPLETE W DOPPLER/CF W CONTRAST Routine 09/13/2024 11:24 AM CAN FILLING ROOM SWEEPER POCT GLUCOSE DEVICE Routine 09/13/2024 11:12 AM CAN FILLING ROOM SWEEPER URINALYSIS, MICROSCOPIC ONLY Routine 09/13/2024 9:45 AM CAN FILLING ROOM SWEEPER DIC SCHISTOCYTES STAT 09/13/2024 9:45 AM CAN FILLING ROOM SWEEPER DIC PLATELET STAT 09/13/2024 9:45 AM CAN FILLING ROOM SWEEPER DIC COAGULATION STAT 09/13/2024 9:45 AM CAN FILLING ROOM SWEEPER DRUGS OF ABUSE SCREEN, URINE WITHOUT CONFIRMATION Routine 09/13/2024 9:45 AM CAN FILLING ROOM SWEEPER HIT ANTIBODIES W/REFLEX TO SEROTONIN RELEASE ASSAY (ASHLEY) Routine 09/13/2024 9:45 AM CAN FILLING ROOM SWEEPER DIC PROFILE STAT 09/13/2024 9:45 AM CAN FILLING ROOM SWEEPER AMMONIA STAT 09/13/2024 9:45 AM CAN FILLING ROOM SWEEPER URINE CULTURE Routine 09/13/2024 9:45 AM CAN FILLING ROOM SWEEPER URINALYSIS AND REFLEX TO MICROSCOPIC AND CULTURE Routine 09/13/2024 9:45 AM CAN FILLING ROOM SWEEPER POCT GLUCOSE DEVICE Routine 09/13/2024 9 :31 AM CAN FILLING ROOM SWEEPER ADD ON LAB TEST Add-On 09/13/2024 9:25 AM CAN FILLING ROOM SWEEPER ADD ON LAB TEST Add-On 09/13/2024 9:25 AM CAN FILLING ROOM SWEEPER XR CHEST 1 VIEW Critical/Life- Threatening 09/13/2024 8:30 AM CAN FILLING ROOM SWEEPER LIPASE Timed 09/13/2024 8:11 AM CAN FILLING ROOM SWEEPER AMYLASE Timed 09/13/2024 8:11 AM CAN FILLING ROOM SWEEPER BETA-HYDROXYBUTYRATE Timed 09/13/2024 8:11 AM CAN FILLING ROOM SWEEPER EGFR Timed 09/13/2024 8:11 AM CAN FILLING ROOM SWEEPER APTT Timed 09/13/2024 8:11 AM CAN FILLING ROOM SWEEPER PHOSPHORUS Timed 09/13/2024 8:11 AM CAN FILLING ROOM SWEEPER MAGNESIUM Timed 09/13/2024 8:11 AM CAN FILLING ROOM SWEEPER BASIC METABOLIC PANEL Timed 09/13/2024 8:11 AM CAN FILLING ROOM SWEEPER BLOOD GAS, ARTERIAL STAT 09/13/2024 7 :58 AM CAN FILLING ROOM SWEEPER POCT GLUCOSE DEVICE Routine 09/13/2024 7 :54 AM CAN FILLING ROOM SWEEPER POCT GLUCOSE DEVICE Routine 09/13/2024 6 :04 AM CAN FILLING ROOM SWEEPER BLOOD CULTURE Routine 09/13/2024 5:22 AM CAN FILLING ROOM SWEEPER POCT GLUCOSE DEVICE Routine 09/13/2024 5 :06 AM CAN FILLING ROOM SWEEPER POCT GLUCOSE DEVICE Routine 09/13/2024 4 :05 AM CAN FILLING ROOM SWEEPER CT HEAD WO CONTRAST ED Urgent/IP Urgent 09/13/2024 3:40 AM CAN FILLING ROOM SWEEPER POCT GLUCOSE DEVICE Routine 09/13/2024 3 :15 AM CAN FILLING ROOM SWEEPER URINALYSIS, MICROSCOPIC ONLY Routine 09/13/2024 2:59 AM CAN FILLING ROOM SWEEPER URINE CULTURE Routine 09/13/2024 2:59 AM CAN FILLING ROOM SWEEPER URINALYSIS AND REFLEX TO MICROSCOPIC AND CULTURE Routine 09/13/2024 2:59 AM CAN FILLING ROOM SWEEPER POCT GLUCOSE DEVICE Routine 09/13/2024 2 :03 AM CAN FILLING ROOM SWEEPER ECG 12-LEAD STAT 09/13/2024 1:58 AM CAN FILLING ROOM SWEEPER RESPIRATORY PATHOGEN PANEL Routine 09/13/2024 1:50 AM CAN FILLING ROOM SWEEPER BLOOD CULTURE Routine 09/13/2024 1:50 AM CAN FILLING ROOM SWEEPER EGFR STAT 09/13/2024 1:46 AM CAN FILLING ROOM SWEEPER DIFFERENTIAL AUTO STAT 09/13/2024 1:4 6 AM CAN FILLING ROOM SWEEPER HEMOGLOBIN A1C Routine 09/13/2024 1:46 AM CAN FILLING ROOM SWEEPER TROPONIN T HIGH-SENSITIVITY Routine 09/13/2024 1:46 AM CAN FILLING ROOM SWEEPER CBC WITH AUTO DIFFERENTIAL STAT 09/13/2024 1:46 AM CAN FILLING ROOM SWEEPER PROTIME-INR STAT 09/13/2024 1:46 AM CAN FILLING ROOM SWEEPER APTT STAT 09/13/2024 1:46 AM CAN FILLING ROOM SWEEPER PRO B-TYPE NATRIURETIC PEPTIDE STAT 09/13/2024 1:46 AM CAN FILLING ROOM SWEEPER PHOSPHORUS STAT 09/13/2024 1:46 AM CAN FILLING ROOM SWEEPER MAGNESIUM STAT 09/13/2024 1:46 AM CAN FILLING ROOM SWEEPER LACTATE STAT 09/13/2024 1:46 AM CAN FILLING ROOM SWEEPER COMPREHENSIVE METABOLIC PANEL STAT 09/13/2024 1:46 AM CAN FILLING ROOM SWEEPER TYPE AND SCREEN STAT 09/13/2024 1:46 AM CAN FILLING ROOM SWEEPER POCT GLUCOSE DEVICE Routine 09/13/2024 1 :30 AM CAN FILLING ROOM SWEEPER SERUM LIPID PANEL Routine 06/26/2014 8:1 1 AM CAN FILLING ROOM SWEEPER COLONOSCOPY REPORT 06/07/2014 from Last 3 Months or Most Recently Relevant to Health Maintenance Results * POCT glucose (10/01/2024 4:34 PM CAN FILLING ROOM SWEEPER) [facility] Signature Glucose, POC 143 70 - 199 mg/dL Comment: For Glucose values <35 mg/dl when Hematocrit is >60 mg/dl,the test may not accurately detect significant hypoglycemia,and testing in the Laboratory should be considered if clinically indicated. Blood 10/01/2024 4:34 PM CAN FILLING ROOM SWEEPER 10/01/2024 4:34 PM CAN FILLING ROOM SWEEPER us Chai Beck MD LAB POCT ORDERABLES - DEVICE Final Result Performing Organization Address [facility] Co de Phone Number [facility] [address] Department [place] [address] * POCT glucose (10/01/2024 11:48 AM CAN FILLING ROOM SWEEPER) [facility] Glucose, POC 145 70 - 199 mg/dL Comment: For Glucose values <35 mg/dl when Hematocrit is >60 mg/dl,the test may not accurately detect significant hypoglycemia,and testing in the Laboratory should be considered if clinically indicated. Blood 10/01/2024 11:4 8 AM CAN FILLING ROOM SWEEPER 10/01/2024 11:48 AM CAN FILLING ROOM SWEEPER Chai Beck MD LAB POCT ORDERABLES - DEVICE Final Result Performing Organization Address [facility] Co de Phone Number [facility] [address] Department [place] [address] * XR Chest 1 View (10/01/2024 9:10 AM CAN FILLING ROOM SWEEPER) Anatomical Region Laterality Modality Body, Chest N/A Computed Radiogr aphy 10/01/2024 9:17 AM CAN FILLING ROOM SWEEPER Impressions 10/01/2024 9:17 AM CAN FILLING ROOM SWEEPER Comparison 09/24/2024 Improvement in the left lower lobe and lingular consolidation. There is now a small left pleural effusion. Right lung is clear. There is no pneumothorax. The cardiomediastinal silhouette is unchanged.. Electronically signed by: Phillip Mathis MD Narrative 10/01/2024 9:17 AM CAN FILLING ROOM SWEEPER Chest one view HISTORY: Recent pneumonia treated with antibiotics Procedure Note Phillip Mathis MD - 10/01/2024 Chest one view HISTORY: Recent pneumonia treated with antibiotics IMPRESSION: Comparison 09/24/2024 Improvement in the left lower lobe and lingular consolidation. There is now a small left pleural effusion. Right lung is clear. There is no pneumothorax. The cardiomediastinal silhouette is unchanged.. Electronically signed by: Phillip Mathis MD Timothy Augustin MD IMG XR PROCEDURES Final Resul t * (ABNORMAL) eGFR (10/01/2024 6:57 AM CAN FILLING ROOM SWEEPER) eGFR 54(L) >=60 mL/min/1. 73 m2 Comment: Interpretive Data Reference Interval Normal >/= 90 mL/min/1.73m2 Mildly decreased* 60 - 89 mL/min/1.73m2 Mildly to moderately decreased 45 - 59 mL/min/1.73m2 Moderately to severely decreased 30 - 44 mL/min/1.73m2 Severely decreased 15 - 29 mL/min/1.73m2 Kidney Failure < 15 mL/min/1.73m2 *Relative to young adult level Estimated glomerular [...] interpretive data was last reviewed 2021. Blood 10/01/2024 6:5 7 AM CAN FILLING ROOM SWEEPER 10/01/2024 7:30 AM CAN FILLING ROOM SWEEPER Timothy Augustin MD LAB BLOOD ORDERABLES Final Re sult Performing Organization Address City/[facility] Co de Phone Number [facility] [address] [place] [address] * Magnesium (10/01/2024 6:57 AM CAN FILLING ROOM SWEEPER) Magnesium 1.5 1.4 - 2.5 mg/dL Blood 10/01/2024 6:57 AM CAN FILLING ROOM SWEEPER 10/01/2024 7:30 AM CAN FILLING ROOM SWEEPER Arnulfo Jordan MD LAB BLOOD ORDERABLES Final Result Performing Organization Address City/[facility]/ZIP Co de Phone Number [facility] [address] Department [place] [address] * (ABNORMAL) Basic metabolic panel (10/01/2024 6:57 AM CAN FILLING ROOM SWEEPER) Pathologist [facility] Sodium 140 135 - 145 mmol/L Potassium, pl 2.9(L) 3.3 - 4.9 mmol/L [facility] Chloride 108 97 - 110 mmol/L [facility] CO2 22 22 - 32 mmol/L [facility] Anion gap 10 2 - 15 mmol/L [facility] BUN 22 6 - 25 mg/dL [facility] Creatinine 1.23(H) 0.60 - 1.10 mg/dL [facility] Glucose 162 70 - 199 mg/dL [facility] Comment: Interpretive Data Fasting glucose >/= 126 mg/dl is diagnostic for diabetes. Fasting is defined as no caloric intake for at least 8 hours. Fasting glucose between 100 mg/dl to 125 mg/dl is diagnostic of prediabetes. In a patient with classic symptoms of hyperglycemia or hyperglycemic crisis, a random glucose >/= 200 mg/dl is diagnostic for diabetes. In the absence of unequivocal hyperglycemia, results should be confirmed by repeat testing. The classification and Diagnosis of Diabetes Diabetes Care 2021; 46: S19-S40. Current interpretive data was last revised 2022. Calcium 8.0(L) 8.5 - 10.3 mg/dL [facility] Blood 10/01/2024 6:57 AM CAN FILLING ROOM SWEEPER 10/01/2024 7:30 AM CAN FILLING ROOM SWEEPER Timothy Augustin MD LAB BLOOD ORDERABLES Final Re sult [facility] [address] Department [place] [address] * POCT glucose (10/01/2024 6:04 AM CAN FILLING ROOM SWEEPER) Pathologist [facility] Glucose, POC 179 70 - 199 mg/dL Comment: For Glucose values <35 mg/dl when Hematocrit is >60 mg/dl,the test may not accurately detect significant hypoglycemia,and testing in the Laboratory should be considered if clinically indicated. Blood 10/01/2024 6:04 AM CAN FILLING ROOM SWEEPER 10/01/2024 6:04 AM CAN FILLING ROOM SWEEPER Arnulfo Jordan MD LAB POCT ORDERABLES - DEVIC E Final Result Performing Organization Address [facility] de Phone Number [facility] [address] [facility] [place] [address] * POCT glucose (10/01/2024 2:00 AM CAN FILLING ROOM SWEEPER) Glucose, POC 168 70 - 199 mg/dL Comment: For Glucose values <35 mg/dl when Hematocrit is >60 mg/dl,the test may not accurately detect significant hypoglycemia,and testing in the Laboratory should be considered if clinically indicated. Blood 10/01/2024 2:00 AM CAN FILLING ROOM SWEEPER 10/01/2024 2:00 AM CAN FILLING ROOM SWEEPER Arnulfo Jordan MD LAB POCT ORDERABLES - DEVIC E Final Result Performing Organization Address [facility] de Phone Number [facility] [address] [facility] [place] [address] * POCT glucose (09/30/2024 9:45 PM CAN FILLING ROOM SWEEPER) Glucose, POC 173 70 - 199 mg/dL Comment: For Glucose values <35 mg/dl when Hematocrit is >60 mg/dl,the test may not accurately detect significant hypoglycemia,and testing in the Laboratory should be considered if clinically indicated. Blood 09/30/2024 9:45 PM CAN FILLING ROOM SWEEPER 09/30/2024 9:45 PM CAN FILLING ROOM SWEEPER Arnulfo Jordan MD LAB POCT ORDERABLES - DEVIC E Final Result Performing Organization Address [facility] de Phone Number [facility] [address] [facility] [place] [address] * (ABNORMAL) POCT glucose (09/30/2024 4:52 PM CAN FILLING ROOM SWEEPER) Glucose, POC 213(H) 70 - 199 mg/dL Comment: For Glucose values <35 mg/dl when Hematocrit is >60 mg/dl,the test may not accurately detect significant hypoglycemia,and testing in the Laboratory should be considered if clinically indicated. Blood 09/30/2024 4:52 PM CAN FILLING ROOM SWEEPER 09/30/2024 4:52 PM CAN FILLING ROOM SWEEPER Arnulfo Jordan MD LAB POCT ORDERABLES - DEVIC E Final Result Performing Organization Address [facility] de Phone Number [facility] [address] [facility] [address] [place], [place] [id number] * POCT glucose (09/30/2024 11:39 AM CAN FILLING ROOM SWEEPER) Glucose, POC 139 70 - 199 mg/dL Comment: For Glucose values <35 mg/dl when Hematocrit is >60 mg/dl,the test may not accurately detect significant hypoglycemia,and testing in the Laboratory should be considered if clinically indicated. Blood 09/30/2024 11:3 9 AM CAN FILLING ROOM SWEEPER 09/30/2024 11:39 AM CAN FILLING ROOM SWEEPER Result On License Of [facility] us Arnulfo Jordan MD LAB POCT ORDERABLES - DEVIC E Final Result Performing Organization Address [facility] de Phone Number [facility] [address] [facility] [place] [address] * POCT glucose (09/30/2024 8:36 AM CAN FILLING ROOM SWEEPER) Glucose, POC 116 70 - 199 mg/dL Comment: For Glucose values <35 mg/dl when Hematocrit is >60 mg/dl,the test may not accurately detect significant hypoglycemia,and testing in the Laboratory should be considered if clinically indicated. Blood 09/30/2024 8:36 AM CAN FILLING ROOM SWEEPER 09/30/2024 8:36 AM CAN FILLING ROOM SWEEPER us Arnulfo Jordan MD LAB POCT ORDERABLES - DEVIC E Final Result Performing Organization Address [facility]/ZIP Co de Phone Number [facility] [address] Department [place] [address] * POCT glucose (09/30/2024 5:29 AM CAN FILLING ROOM SWEEPER) Glucose, POC 110 70 - 199 mg/dL Comment: For Glucose values <35 mg/dl when Hematocrit is >60 mg/dl,the test may not accurately detect significant hypoglycemia,and testing in the Laboratory should be considered if clinically indicated. Blood 09/30/2024 5:29 AM CAN FILLING ROOM SWEEPER 09/30/2024 5:29 AM CAN FILLING ROOM SWEEPER Arnulfo Jordan MD LAB POCT ORDERABLES - DEVIC E Final Result Performing Organization Address [facility] de Phone Number [facility] [address] [facility] [place] [address] * POCT glucose (09/30/2024 2:22 AM CAN FILLING ROOM SWEEPER) Glucose, POC 183 70 - 199 mg/dL Comment: For Glucose values <35 mg/dl when Hematocrit is >60 mg/dl,the test may not accurately detect significant hypoglycemia,and testing in the Laboratory should be considered if clinically indicated. Blood 09/30/2024 2:22 AM CAN FILLING ROOM SWEEPER 09/30/2024 2:22 AM CAN FILLING ROOM SWEEPER Arnulfo Jordan MD LAB POCT ORDERABLES - DEVIC E Final Result Performing Organization Address [facility] de Phone Number [facility] [address] [facility] [place] [address] * POCT glucose (09/29/2024 8:35 PM CAN FILLING ROOM SWEEPER) Glucose, POC 192 70 - 199 mg/dL Comment: For Glucose values <35 mg/dl when Hematocrit is >60 mg/dl,the test may not accurately detect significant hypoglycemia,and testing in the Laboratory should be considered if clinically indicated. Blood 09/29/2024 8:35 PM CAN FILLING ROOM SWEEPER 09/29/2024 8:35 PM CAN FILLING ROOM SWEEPER Arnulfo Jordan MD LAB POCT ORDERABLES - DEVIC E Final Result Performing Organization Address [facility] Co de Phone Number [facility] [address] [place] [address] * (ABNORMAL) POCT glucose (09/29/2024 5:35 PM CAN FILLING ROOM SWEEPER) Pathologist [facility] Glucose, POC 203(H) 70 - 199 mg/dL Comment: For Glucose values <35 mg/dl when Hematocrit is >60 mg/dl,the test may not accurately detect significant hypoglycemia,and testing in the Laboratory should be considered if clinically indicated. Blood 09/29/2024 5:35 PM CAN FILLING ROOM SWEEPER 09/29/2024 5:35 PM CAN FILLING ROOM SWEEPER Arnulfo Jordan MD LAB POCT ORDERABLES - DEVIC E Final Result Performing Organization Address [facility] de Phone Number [facility] [address] [place] [address] * (ABNORMAL) eGFR (09/29/2024 3:33 PM CAN FILLING ROOM SWEEPER) [facility] eGFR 58(L) >=60 mL/min/1. 73 m2 Comment: Interpretive Data Reference Interval Normal >/= 90 mL/min/1.73m2 Mildly decreased* 60 - 89 mL/min/1.73m2 Mildly to moderately decreased 45 - 59 mL/min/1.73m2 Moderately to severely decreased 30 - 44 mL/min/1.73m2 Severely decreased 15 - 29 mL/min/1.73m2 Kidney Failure < 15 mL/min/1.73m2 *Relative to young adult level Estimated glomerular [...] interpretive data was last reviewed 2021. Blood 09/29/2024 3:33 PM CAN FILLING ROOM SWEEPER 09/29/2024 3:45 PM CAN FILLING ROOM SWEEPER us Arnulfo Jordan MD LAB BLOOD ORDERABLES Final Result [facility] [address] [place] [address] * (ABNORMAL) Differential, auto (09/29/2024 3:33 PM CAN FILLING ROOM SWEEPER) Neutrophil abs 6.6(H) 1.5 - 6.5 K/cumm Imm gran abs 0.1 0.0 - 0.1 K/cumm [facility] Lymphocyte abs 0.9 0.8 - 3.3 K/cumm [facility] Monocyte abs 0.6 0.2 - 0.8 K/cumm [facility] Eosinophil abs 0.1 0.0 - 0.5 K/cumm [facility] Basophil abs 0.1 0.0 - 0.1 K/cumm [facility] Neutrophil pct 79.1 % [facility] Comment: Interpretive Data Percent cell count reference ranges are not reported, since discordance with absolute values may lead to misinterpretation of CBC data. Current Interpretive Data was last revised on 2017. Imm gran pct 0.6 % [facility] Comment: Interpretive Data Percent cell count reference ranges are not reported, since discordance with absolute values may lead to misinterpretation of CBC data. Current Interpretive Data was last revised on 2017. Lymphocyte pct 11.1 % [facility] Comment: Interpretive Data Percent cell count reference ranges are not reported, since discordance with absolute values may lead to misinterpretation of CBC data. Current Interpretive Data was last revised on 2017. Monocyte pct 7.6 % [facility] Comment: Interpretive Data Percent cell count reference ranges are not reported, since discordance with absolute values may lead to misinterpretation of CBC data. Current Interpretive Data was last revised on 2017. Eosinophil pct 0.6 % [facility] Comment: Interpretive Data Percent cell count reference ranges are not reported, since discordance with absolute values may lead to misinterpretation of CBC data. Current Interpretive Data was last revised on 2017. Basophil pct 1.0 % [facility] Comment: Interpretive Data Percent cell count reference ranges are not reported, since discordance with absolute values may lead to misinterpretation of CBC data. Current Interpretive Data was last revised on 2017. Blood 09/29/2024 3:33 PM CAN FILLING ROOM SWEEPER 09/29/2024 3:45 PM CAN FILLING ROOM SWEEPER Arnulfo Jordan MD LAB BLOOD ORDERABLES Final Result [facility] [address] Department of Laboratories [place], [place] [id number] * (ABNORMAL) CBC with auto differential (09/29/2024 3:33 PM CAN FILLING ROOM SWEEPER) WBC 8.3 3.8 - 9.9 K/cumm Hgb 7.8(L) 11.9 - 15.5 g/dL [facility] Hct 24.8(L) 35.6 - 45.5 % [facility] Plt 291 150 - 400 K/cumm [facility] MPV 10.9 9.1 - 12.3 fL [facility] RBC 2.59(L) 3.90 - 5.20 M/cumm [facility] MCV 95.8 81.3 - 96.4 fL [facility] MCH 30.1 27.1 - 33.3 pg [facility] MCHC 31.5(L) 32.3 - 35.7 g/dL [facility] RDW CV 16.6(H) 11.1 - 14.9 % [facility] RDW SD 56.7(H) 35.7 - 48.1 fL [facility] NRBC abs 0.02(H) 0.00 - 0.01 K/cumm [facility] Blood 09/29/2024 3:33 PM CAN FILLING ROOM SWEEPER 09/29/2024 3:45 PM CAN FILLING ROOM SWEEPER Arnulfo Jordan MD LAB BLOOD ORDERABLES Final Result [facility] [address] Department [place] [address] * (ABNORMAL) Comprehensive metabolic panel (09/29/2024 3:33 PM CAN FILLING ROOM SWEEPER) Sodium 141 135 - 145 mmol/L Potassium, pl 2.9(L) 3.3 - 4.9 mmol/L [facility] Chloride 110 97 - 110 mmol/L [facility] CO2 20(L) 22 - 32 mmol/L [facility] Anion gap 11 2 - 15 mmol/L [facility] BUN 19 6 - 25 mg/dL [facility] Creatinine 1.15(H) 0.60 - 1.10 mg/dL [facility] Glucose 207(H) 70 - 199 mg/dL [facility] Comment: Interpretive Data Fasting glucose >/= 126 mg/dl is diagnostic for diabetes. Fasting is defined as no caloric intake for at least 8 hours. Fasting glucose between 100 mg/dl to 125 mg/dl is diagnostic of prediabetes. In a patient with classic symptoms of hyperglycemia or hyperglycemic crisis, a random glucose >/= 200 mg/dl is diagnostic for diabetes. In the absence of unequivocal hyperglycemia, results should be confirmed by repeat testing. The classification and Diagnosis of Diabetes Diabetes Care 2021; 46: S19-S40. Current interpretive data was last revised 2022. Calcium 7.7(L) 8.5 - 10.3 mg/dL [facility] Bilirubin, total 0.2 0.1 - 1.2 mg/dL [facility] Protein, pl 6.4(L) 6.5 - 8.5 g/dL [facility] Albumin 1.9(L) 3.5 - 5.0 g/dL [facility] Alk phos 170(H) 40 - 130 Units/L [facility] ALT 12 7 - 45 Units/L [facility] AST 27 10 - 45 Units/L [facility] Comment:Slightly Hemolyzed S pecimen Blood 09/29/2024 3:33 PM CAN FILLING ROOM SWEEPER 09/29/2024 3:45 PM CAN FILLING ROOM SWEEPER Arnulfo Jordan MD LAB BLOOD ORDERABLES Final Result Performing Organization Address [facility] de Phone Number [facility] [address] [facility] [place] [address] * POCT glucose (09/29/2024 1:43 PM CAN FILLING ROOM SWEEPER) Glucose, POC 164 70 - 199 mg/dL Comment: For Glucose values <35 mg/dl when Hematocrit is >60 mg/dl,the test may not accurately detect significant hypoglycemia,and testing in the Laboratory should be considered if clinically indicated. Blood 09/29/2024 1:43 PM CAN FILLING ROOM SWEEPER 09/29/2024 1:43 PM CAN FILLING ROOM SWEEPER Arnulfo Jordan MD LAB POCT ORDERABLES - DEVIC E Final Result Performing Organization Address [facility] de Phone Number [facility] [address] [facility] [place] [address] * POCT glucose (09/29/2024 9:49 AM CAN FILLING ROOM SWEEPER) Glucose, POC 133 70 - 199 mg/dL Comment: For Glucose values <35 mg/dl when Hematocrit is >60 mg/dl,the test may not accurately detect significant hypoglycemia,and testing in the Laboratory should be considered if clinically indicated. Blood 09/29/2024 9:49 AM CAN FILLING ROOM SWEEPER 09/29/2024 9:49 AM CAN FILLING ROOM SWEEPER Result [facility] Arnulfo Jordan MD LAB POCT ORDERABLES - DEVIC E Final Result Performing Organization Address [facility] Co de Phone Number [facility] [address] [facility] [employer] [place], [place] [id number] * POCT glucose (09/29/2024 7:27 AM CAN FILLING ROOM SWEEPER) Glucose, POC 114 70 - 199 mg/dL Comment: For Glucose values <35 mg/dl when Hematocrit is >60 mg/dl,the test may not accurately detect significant hypoglycemia,and testing in the Laboratory should be considered if clinically indicated. Blood 09/29/2024 7:27 AM CAN FILLING ROOM SWEEPER 09/29/2024 7:27 AM CAN FILLING ROOM SWEEPER Arnulfo Jordan MD LAB POCT ORDERABLES - DEVIC E Final Result Performing Organization Address [facility] de Phone Number [facility] [address] [facility] [place] [address] * POCT glucose (09/29/2024 5:31 AM CAN FILLING ROOM SWEEPER) Glucose, POC 115 70 - 199 mg/dL Comment: For Glucose values <35 mg/dl when Hematocrit is >60 mg/dl,the test may not accurately detect significant hypoglycemia,and testing in the Laboratory should be considered if clinically indicated. Blood 09/29/2024 5:31 AM CAN FILLING ROOM SWEEPER 09/29/2024 5:31 AM CAN FILLING ROOM SWEEPER Result [facility] Arnulfo Jordan MD LAB POCT ORDERABLES - DEVIC E Final Result Performing Organization Address [facility] de Phone Number [facility] [address] [facility] [place] [address] * POCT glucose (09/29/2024 1:25 AM CAN FILLING ROOM SWEEPER) Glucose, POC 108 70 - 199 mg/dL Comment: For Glucose values <35 mg/dl when Hematocrit is >60 mg/dl,the test may not accurately detect significant hypoglycemia,and testing in the Laboratory should be considered if clinically indicated. Blood 09/29/2024 1:25 AM CAN FILLING ROOM SWEEPER 09/29/2024 1:25 AM CAN FILLING ROOM SWEEPER Result On License Of [facility] us Arnulfo Jordan MD LAB POCT ORDERABLES - DEVIC E Final Result Performing Organization Address [facility] Co de Phone Number [facility] [address] [facility] [place] [address] * POCT glucose (09/28/2024 9:14 PM CAN FILLING ROOM SWEEPER) Glucose, POC 106 70 - 199 mg/dL Comment: For Glucose values <35 mg/dl when Hematocrit is >60 mg/dl,the test may not accurately detect significant hypoglycemia,and testing in the Laboratory should be considered if clinically indicated. Blood 09/28/2024 9:14 PM CAN FILLING ROOM SWEEPER 09/28/2024 9:14 PM CAN FILLING ROOM SWEEPER Arnulfo Jordan MD LAB POCT ORDERABLES - DEVIC E Final Result Performing Organization Address City/[facility] Co de Phone Number [facility] [address] [place] [address] * POCT glucose (09/28/2024 5:12 PM CAN FILLING ROOM SWEEPER) Glucose, POC 161 70 - 199 mg/dL Comment: For Glucose values <35 mg/dl when Hematocrit is >60 mg/dl,the test may not accurately detect significant hypoglycemia,and testing in the Laboratory should be considered if clinically indicated. Blood 09/28/2024 5:12 PM CAN FILLING ROOM SWEEPER 09/28/2024 5:12 PM CAN FILLING ROOM SWEEPER Arnulfo Jordan MD LAB POCT ORDERABLES - DEVIC E Final Result Performing Organization Address City/[facility]/ZIP Co de Phone Number [facility] [address] Department [place] [address] * POCT glucose (09/28/2024 1:43 PM CAN FILLING ROOM SWEEPER) Glucose, POC 173 70 - 199 mg/dL Comment: For Glucose values <35 mg/dl when Hematocrit is >60 mg/dl,the test may not accurately detect significant hypoglycemia,and testing in the Laboratory should be considered if clinically indicated. Blood 09/28/2024 1:43 PM CAN FILLING ROOM SWEEPER 09/28/2024 1:43 PM CAN FILLING ROOM SWEEPER Arnulfo Jordan MD LAB POCT ORDERABLES - DEVIC E Final Result Performing Organization Address [facility]/ZIP Co de Phone Number [facility] [address] [facility] [place] [address] * POCT glucose (09/28/2024 9:16 AM CAN FILLING ROOM SWEEPER) Glucose, POC 124 70 - 199 mg/dL Comment: For Glucose values <35 mg/dl when Hematocrit is >60 mg/dl,the test may not accurately detect significant hypoglycemia,and testing in the Laboratory should be considered if clinically indicated. Blood 09/28/2024 9:16 AM CAN FILLING ROOM SWEEPER 09/28/2024 9:16 AM CAN FILLING ROOM SWEEPER Arnulfo Jordan MD LAB POCT ORDERABLES - DEVIC E Final Result Performing Organization Address [facility] Co de Phone Number [facility] [address] Department [place] [address] * (ABNORMAL) eGFR (09/28/2024 7:09 AM CAN FILLING ROOM SWEEPER) eGFR 58(L) >=60 mL/min/1. 73 m2 Comment: Interpretive Data Reference Interval Normal >/= 90 mL/min/1.73m2 Mildly decreased* 60 - 89 mL/min/1.73m2 Mildly to moderately decreased 45 - 59 mL/min/1.73m2 Moderately to severely decreased 30 - 44 mL/min/1.73m2 Severely decreased 15 - 29 mL/min/1.73m2 Kidney Failure < 15 mL/min/1.73m2 *Relative to young adult level Estimated glomerular [...] interpretive data was last reviewed 2021. Blood 09/28/2024 7:09 AM CAN FILLING ROOM SWEEPER 09/28/2024 7:45 AM CAN FILLING ROOM SWEEPER Arnulfo Jordan MD LAB BLOOD ORDERABLES Final Result [facility] [address] Department [place] [address] * (ABNORMAL) Differential, auto (09/28/2024 7:09 AM CAN FILLING ROOM SWEEPER) Neutrophil abs 5.7 1.5 - 6.5 K/cumm Imm gran abs 0.0 0.0 - 0.1 K/cumm [facility] Lymphocyte abs 0.7(L) 0.8 - 3.3 K/cumm [facility] Monocyte abs 0.5 0.2 - 0.8 K/cumm [facility] Eosinophil abs 0.1 0.0 - 0.5 K/cumm [facility] Basophil abs 0.1 0.0 - 0.1 K/cumm [facility] Neutrophil pct 80.9 % [facility] Comment: Interpretive Data Percent cell count reference ranges are not reported, since discordance with absolute values may lead to misinterpretation of CBC data. Current Interpretive Data was last revised on 2017. Imm gran pct 0.4 % [facility] Comment: Interpretive Data Percent cell count reference ranges are not reported, since discordance with absolute values may lead to misinterpretation of CBC data. Current Interpretive Data was last revised on 2017. Lymphocyte pct 9.3 % [facility] Comment: Interpretive Data Percent cell count reference ranges are not reported, since discordance with absolute values may lead to misinterpretation of CBC data. Current Interpretive Data was last revised on 2017. Monocyte pct 6.9 % [facility] Comment: Interpretive Data Percent cell count reference ranges are not reported, since discordance with absolute values may lead to misinterpretation of CBC data. Current Interpretive Data was last revised on 2017. Eosinophil pct 1.5 % [facility] Comment: Interpretive Data Percent cell count reference ranges are not reported, since discordance with absolute values may lead to misinterpretation of CBC data. Current Interpretive Data was last revised on 2017. Basophil pct 1.0 % [facility] Comment: Interpretive Data Percent cell count reference ranges are not reported, since discordance with absolute values may lead to misinterpretation of CBC data. Current Interpretive Data was last revised on 2017. Blood 09/28/2024 7:09 AM CAN FILLING ROOM SWEEPER 09/28/2024 7:45 AM CAN FILLING ROOM SWEEPER Arnulfo Jordan MD LAB BLOOD ORDERABLES Final Result Performing Organization Address City/[facility]/ZIP Co de Phone Number [facility] [address] Department [place] [address] * (ABNORMAL) CBC with auto differential (09/28/2024 7:09 AM CAN FILLING ROOM SWEEPER) WBC 7.1 3.8 - 9.9 K/cumm Hgb 7.3(L) 11.9 - 15.5 g/dL [facility] Hct 24.5(L) 35.6 - 45.5 % [facility] Plt 285 150 - 400 K/cumm [facility] MPV 11.3 9.1 - 12.3 fL [facility] RBC 2.54(L) 3.90 - 5.20 M/cumm [facility] MCV 96.5(H) 81.3 - 96.4 fL [facility] MCH 28.7 27.1 - 33.3 pg [facility] MCHC 29.8(L) 32.3 - 35.7 g/dL [facility] RDW CV 16.5(H) 11.1 - 14.9 % [facility] RDW SD 57.2(H) 35.7 - 48.1 fL [facility] NRBC abs 0.00 0.00 - 0.01 K/cumm [facility] Blood 09/28/2024 7:09 AM CAN FILLING ROOM SWEEPER 09/28/2024 7:45 AM CAN FILLING ROOM SWEEPER Arnulfo Jordan MD LAB BLOOD ORDERABLES Final Result [facility] [address] Department [place] [address] * (ABNORMAL) Comprehensive metabolic panel (09/28/2024 7:09 AM CAN FILLING ROOM SWEEPER) Sodium 142 135 - 145 mmol/L Potassium, pl 3.3 3.3 - 4.9 mmol/L [facility] Chloride 109 97 - 110 mmol/L [facility] CO2 21(L) 22 - 32 mmol/L [facility] Anion gap 12 2 - 15 mmol/L [facility] BUN 24 6 - 25 mg/dL [facility] Creatinine 1.15(H) 0.60 - 1.10 mg/dL [facility] Glucose 111 70 - 199 mg/dL [facility] Comment: Interpretive Data Fasting glucose >/= 126 mg/dl is diagnostic for diabetes. Fasting is defined as no caloric intake for at least 8 hours. Fasting glucose between 100 mg/dl to 125 mg/dl is diagnostic of prediabetes. In a patient with classic symptoms of hyperglycemia or hyperglycemic crisis, a random glucose >/= 200 mg/dl is diagnostic for diabetes. In the absence of unequivocal hyperglycemia, results should be confirmed by repeat testing. The classification and Diagnosis of Diabetes Diabetes Care 202; 46: S19-S40. Current interpretive data was last revised 2022. Calcium 8.1(L) 8.5 - 10.3 mg/dL [facility] Bilirubin, total 0.2 0.1 - 1.2 mg/dL [facility] Protein, pl 6.3(L) 6.5 - 8.5 g/dL [facility] Albumin 1.9(L) 3.5 - 5.0 g/dL [facility] Alk phos 163(H) 40 - 130 Units/L [facility] ALT 10 7 - 45 Units/L [facility] AST 28 10 - 45 Units/L [facility] Blood 09/28/2024 7:09 AM CAN FILLING ROOM SWEEPER 09/28/2024 7:45 AM CAN FILLING ROOM SWEEPER Arnulfo Jordan MD LAB BLOOD ORDERABLES Final Result [facility] [address] [facility] [place] [address] * POCT glucose (09/28/2024 5:42 AM CAN FILLING ROOM SWEEPER) Glucose, POC 123 70 - 199 mg/dL Comment: For Glucose values <35 mg/dl when Hematocrit is >60 mg/dl,the test may not accurately detect significant hypoglycemia,and testing in the Laboratory should be considered if clinically indicated. Blood 09/28/2024 5:42 AM CAN FILLING ROOM SWEEPER 09/28/2024 5:42 AM CAN FILLING ROOM SWEEPER Arnulfo Jordan MD LAB POCT ORDERABLES - DEVIC E Final Result Performing Organization Address [facility] de Phone Number [facility] [address] [facility] [place] [address] * POCT glucose (09/28/2024 1:31 AM CAN FILLING ROOM SWEEPER) Glucose, POC 125 70 - 199 mg/dL Comment: For Glucose values <35 mg/dl when Hematocrit is >60 mg/dl,the test may not accurately detect significant hypoglycemia,and testing in the Laboratory should be considered if clinically indicated. Blood 09/28/2024 1:31 AM CAN FILLING ROOM SWEEPER 09/28/2024 1:31 AM CAN FILLING ROOM SWEEPER Arnulfo Jordan MD LAB POCT ORDERABLES - DEVIC E Final Result Performing Organization Address [facility] de Phone Number [facility] [address] [place] [address] * POCT glucose (09/27/2024 9:14 PM CAN FILLING ROOM SWEEPER) Glucose, POC 136 70 - 199 mg/dL Comment: For Glucose values <35 mg/dl when Hematocrit is >60 mg/dl,the test may not accurately detect significant hypoglycemia,and testing in the Laboratory should be considered if clinically indicated. Blood 09/27/2024 9:14 PM CAN FILLING ROOM SWEEPER 09/27/2024 9:14 PM CAN FILLING ROOM SWEEPER Arnulfo Jordan MD LAB POCT ORDERABLES - DEVIC E Final Result Performing Organization Address [facility] de Phone Number [facility] [address] [place] [address] * POCT glucose (09/27/2024 5:25 PM CAN FILLING ROOM SWEEPER) Glucose, POC 112 70 - 199 mg/dL Comment: For Glucose values <35 mg/dl when Hematocrit is >60 mg/dl,the test may not accurately detect significant hypoglycemia,and testing in the Laboratory should be considered if clinically indicated. Blood 09/27/2024 5:25 PM CAN FILLING ROOM SWEEPER 09/27/2024 5:25 PM CAN FILLING ROOM SWEEPER Arnulfo Jordan MD LAB POCT ORDERABLES - DEVIC E Final Result Performing Organization Address [facility] de Phone Number [facility] [address] [facility] [place] [address] * POCT glucose (09/27/2024 3:13 PM CAN FILLING ROOM SWEEPER) Glucose, POC 101 70 - 199 mg/dL Comment: For Glucose values <35 mg/dl when Hematocrit is >60 mg/dl,the test may not accurately detect significant hypoglycemia,and testing in the Laboratory should be considered if clinically indicated. Blood 09/27/2024 3:13 PM CAN FILLING ROOM SWEEPER 09/27/2024 3:13 PM CAN FILLING ROOM SWEEPER Arnulfo Jordan MD LAB POCT ORDERABLES - DEVIC E Final Result Performing Organization Address [facility] de Phone Number [facility] [address] [place] [address] * FL Modified Barium Swallow W Video (09/27/2024 2:20 PM CAN FILLING ROOM SWEEPER) Anatomical Region Laterality Modality Head and Neck N/A Radio Fluoroscop y 09/27/2024 2:33 PM CAN FILLING ROOM SWEEPER Impressions 09/27/2024 3:03 PM CAN FILLING ROOM SWEEPER 1. There is flash laryngeal penetration with thin consistency. 2. There is no evidence of transglottic aspiration during this examination. Please refer to the Speech Pathology procedure note for safe swallow recommendations as well as additional information regarding the oral-pharyngeal swallow function, plan of care, and recommended follow up. FLUOROSCOPY TIME: 2.5 minutes REFERENCE AIR KERMA: 11.0 mGy Dictated by: Kaci Albarran PA-C The radiology attending physician has personally reviewed this study, and had reviewed and/or edited this written report and agrees with it. Electronically signed by: Zion Rodriguez M.D. Narrative 09/27/2024 3:03 PM CAN FILLING ROOM SWEEPER EXAMINATION: MODIFIED BARIUM SWALLOW 09/27/2024 HISTORY: Dysphagia. TECHNIQUE: Modified barium swallow was performed in conjunction with the speech pathologist. Thin and thick liquid, pudding, and cracker preparations of barium were administered orally to the patient. Video fluoroscopy was used throughout the exam. FINDINGS: The oral phase of swallowing is slightly delayed. Once the swallow reflex is initiated, pharyngeal contractility appears to be within normal limits. Epiglottic movement is normal. There is flash laryngeal penetration with thin consistency. There is no evidence of transglottic aspiration during this examination. There is no significant residual identified within the vallecula or pyriform sinuses. Procedure Note Zion Rodriguez MD - 09/27/2024 EXAMINATION: MODIFIED BARIUM SWALLOW 09/27/2024 HISTORY: Dysphagia. TECHNIQUE: Modified barium swallow was performed in conjunction with the speech pathologist. Thin and thick liquid, pudding, and cracker preparations of barium were administered orally to the patient. Video fluoroscopy was used throughout the exam. FINDINGS: The oral phase of swallowing is slightly delayed. Once the swallow reflex is initiated, pharyngeal contractility appears to be within normal limits. Epiglottic movement is normal. There is flash laryngeal penetration with thin consistency. There is no evidence of transglottic aspiration during this examination. There is no significant residual identified within the vallecula or pyriform sinuses. IMPRESSION: 1. There is flash laryngeal penetration with thin consistency. 2. There is no evidence of transglottic aspiration during this examination. Please refer to the Speech Pathology procedure note for safe swallow recommendations as well as additional information regarding the oral-pharyngeal swallow function, plan of care, and recommended follow up. FLUOROSCOPY TIME: 2.5 minutes REFERENCE AIR KERMA: 11.0 mGy Dictated by: Kaci Albarran PA-C The radiology attending physician has personally reviewed this study, and had reviewed and/or edited this written report and agrees with it. Electronically signed by: Zion Rodriguez M.D. us Arnulfo Jordan MD IMG FLUOROSCOPY PROCEDURES Final Result * POCT glucose (09/27/2024 10:05 AM CAN FILLING ROOM SWEEPER) [facility] Glucose, POC 89 70 - 199 mg/dL Comment: For Glucose values <35 mg/dl when Hematocrit is >60 mg/dl,the test may not accurately detect significant hypoglycemia,and testing in the Laboratory should be considered if clinically indicated. Blood 09/27/2024 10:0 5 AM CAN FILLING ROOM SWEEPER 09/27/2024 10:05 AM CAN FILLING ROOM SWEEPER Result [facility] Arnulfo Jordan MD LAB POCT ORDERABLES - DEVIC E Final Result Performing Organization Address City/[facility]/ZIP Co de Phone Number [facility] [address] [place] [address] * Iron profile - Add on lab test (09/27/2024 8:43 AM CAN FILLING ROOM SWEEPER) [facility] Acceptable Yes Blood 09/27/2024 8:43 AM CAN FILLING ROOM SWEEPER 09/27/2024 8:43 AM CAN FILLING ROOM SWEEPER Narrative [facility] - 09/27/2024 8:44 AM CAN FILLING ROOM SWEEPER Name of Test->Iron profile Result [facility] Arnulfo Jordan MD LAB BLOOD ORDERABLES Final Result [facility] [address] [place] [address] * POCT glucose (09/27/2024 5:57 AM CAN FILLING ROOM SWEEPER) [facility] Glucose, POC 74 70 - 199 mg/dL Comment: For Glucose values <35 mg/dl when Hematocrit is >60 mg/dl,the test may not accurately detect significant hypoglycemia,and testing in the Laboratory should be considered if clinically indicated. Blood 09/27/2024 5:57 AM CAN FILLING ROOM SWEEPER 09/27/2024 5:57 AM CAN FILLING ROOM SWEEPER Arnulfo Jordan MD LAB POCT ORDERABLES - DEVIC E Final Result [facility] [address] [place] [address] * (ABNORMAL) eGFR (09/27/2024 5:42 AM CAN FILLING ROOM SWEEPER) [facility] eGFR 58(L) >=60 mL/min/1. 73 m2 Comment: Interpretive Data Reference Interval Normal >/= 90 mL/min/1.73m2 Mildly decreased* 60 - 89 mL/min/1.73m2 Mildly to moderately decreased 45 - 59 mL/min/1.73m2 Moderately to severely decreased 30 - 44 mL/min/1.73m2 Severely decreased 15 - 29 mL/min/1.73m2 Kidney Failure < 15 mL/min/1.73m2 *Relative to young adult level Estimated glomerular [...] interpretive data was last reviewed 2021. Blood 09/27/2024 5:42 AM CAN FILLING ROOM SWEEPER 09/27/2024 5:55 AM CAN FILLING ROOM SWEEPER us Arnulfo Jordan MD LAB BLOOD ORDERABLES Final Result [facility] [address] [place] [address] * (ABNORMAL) Differential, auto (09/27/2024 5:42 AM CAN FILLING ROOM SWEEPER) Neutrophil abs 7.1(H) 1.5 - 6.5 K/cumm Imm gran abs 0.0 0.0 - 0.1 K/cumm [facility] Lymphocyte abs 0.7(L) 0.8 - 3.3 K/cumm [facility] Monocyte abs 0.6 0.2 - 0.8 K/cumm [facility] Eosinophil abs 0.2 0.0 - 0.5 K/cumm [facility] Basophil abs 0.1 0.0 - 0.1 K/cumm [facility] Neutrophil pct 80.9 % [facility] Comment: Interpretive Data Percent cell count reference ranges are not reported, since discordance with absolute values may lead to misinterpretation of CBC data. Current Interpretive Data was last revised on 2017. Imm gran pct 0.5 % [facility] Comment: Interpretive Data Percent cell count reference ranges are not reported, since discordance with absolute values may lead to misinterpretation of CBC data. Current Interpretive Data was last revised on 2017. Lymphocyte pct 8.4 % [facility] Comment: Interpretive Data Percent cell count reference ranges are not reported, since discordance with absolute values may lead to misinterpretation of CBC data. Current Interpretive Data was last revised on 2017. Monocyte pct 6.6 % [facility] Comment: Interpretive Data Percent cell count reference ranges are not reported, since discordance with absolute values may lead to misinterpretation of CBC data. Current Interpretive Data was last revised on 2017. Eosinophil pct 2.6 % [facility] Comment: Interpretive Data Percent cell count reference ranges are not reported, since discordance with absolute values may lead to misinterpretation of CBC data. Current Interpretive Data was last revised on 2017. Basophil pct 1.0 % [facility] Comment: Interpretive Data Percent cell count reference ranges are not reported, since discordance with absolute values may lead to misinterpretation of CBC data. Current Interpretive Data was last revised on 2017. Blood 09/27/2024 5:42 AM CAN FILLING ROOM SWEEPER 09/27/2024 5:55 AM CAN FILLING ROOM SWEEPER Arnulfo Jordan MD LAB BLOOD ORDERABLES Final Result Performing Organization Address City/[facility]/ZIP Co de Phone Number [facility] [address] [facility] [place] [address] * (ABNORMAL) Iron profile w/ IBC (09/27/2024 5:42 AM CAN FILLING ROOM SWEEPER) [facility] Iron 25(L) 35 - 145 mcg/dL TIBC 156(L) 250 - 400 mcg/dL [facility] Transferrin saturation 16(L) 20 - 50 % [facility] Blood 09/27/2024 5:42 AM CAN FILLING ROOM SWEEPER 09/27/2024 5:55 AM CAN FILLING ROOM SWEEPER Arnulfo Jordan MD LAB BLOOD ORDERABLES Final Result Performing Organization Address [facility] Co de Phone Number [facility] [address] [place] [address] * (ABNORMAL) CBC with auto differential (09/27/2024 5:42 AM CAN FILLING ROOM SWEEPER) [facility] WBC 8.8 3.8 - 9.9 K/cumm Hgb 7.2(L) 11.9 - 15.5 g/dL [facility] Hct 24.6(L) 35.6 - 45.5 % [facility] Plt 280 150 - 400 K/cumm [facility] MPV 11.4 9.1 - 12.3 fL [facility] RBC 2.60(L) 3.90 - 5.20 M/cumm [facility] MCV 94.6 81.3 - 96.4 fL [facility] MCH 27.7 27.1 - 33.3 pg [facility] MCHC 29.3(L) 32.3 - 35.7 g/dL [facility] RDW CV 16.1(H) 11.1 - 14.9 % [facility] RDW SD 54.5(H) 35.7 - 48.1 fL [facility] NRBC abs 0.00 0.00 - 0.01 K/cumm [facility] Blood 09/27/2024 5:42 AM CAN FILLING ROOM SWEEPER 09/27/2024 5:55 AM CAN FILLING ROOM SWEEPER Arnulfo Jordan MD LAB BLOOD ORDERABLES Final Result [facility] [address] Department [place] [address] * (ABNORMAL) Comprehensive metabolic panel (09/27/2024 5:42 AM CAN FILLING ROOM SWEEPER) Sodium 143 135 - 145 mmol/L Potassium, pl 3.4 3.3 - 4.9 mmol/L [facility] Chloride 110 97 - 110 mmol/L [facility] CO2 22 22 - 32 mmol/L [facility] Anion gap 11 2 - 15 mmol/L [facility] BUN 25 6 - 25 mg/dL [facility] Creatinine 1.16(H) 0.60 - 1.10 mg/dL [facility] Glucose 77 70 - 199 mg/dL [facility] Comment: Interpretive Data Fasting glucose >/= 126 mg/dl is diagnostic for diabetes. Fasting is defined as no caloric intake for at least 8 hours. Fasting glucose between 100 mg/dl to 125 mg/dl is diagnostic of prediabetes. In a patient with classic symptoms of hyperglycemia or hyperglycemic crisis, a random glucose >/= 200 mg/dl is diagnostic for diabetes. In the absence of unequivocal hyperglycemia, results should be confirmed by repeat testing. The classification and Diagnosis of Diabetes Diabetes Care 2021; 46: S19-S40. Current interpretive data was last revised 2022. Calcium 8.0(L) 8.5 - 10.3 mg/dL [facility] Bilirubin, total 0.3 0.1 - 1.2 mg/dL [facility] Protein, pl 6.0(L) 6.5 - 8.5 g/dL [facility] Albumin 2.1(L) 3.5 - 5.0 g/dL [facility] Alk phos 152(H) 40 - 130 Units/L [facility] ALT 12 7 - 45 Units/L [facility] AST 31 10 - 45 Units/L [facility] Blood 09/27/2024 5:42 AM CAN FILLING ROOM SWEEPER 09/27/2024 5:55 AM CAN FILLING ROOM SWEEPER Arnulfo Jordan MD LAB BLOOD ORDERABLES Final Result Performing Organization Address [facility] Co de Phone Number [facility] [address] [facility] [place] [address] * POCT glucose (09/27/2024 2:14 AM CAN FILLING ROOM SWEEPER) Glucose, POC 78 70 - 199 mg/dL Comment: For Glucose values <35 mg/dl when Hematocrit is >60 mg/dl,the test may not accurately detect significant hypoglycemia,and testing in the Laboratory should be considered if clinically indicated. Blood 09/27/2024 2:14 AM CAN FILLING ROOM SWEEPER 09/27/2024 2:14 AM CAN FILLING ROOM SWEEPER Arnulfo Jordan MD LAB POCT ORDERABLES - DEVIC E Final Result Performing Organization Address [facility]/[place] de Phone Number [facility] [address] [facility] [place] [address] * POCT glucose (09/26/2024 9:41 PM CAN FILLING ROOM SWEEPER) Glucose, POC 79 70 - 199 mg/dL Comment: For Glucose values <35 mg/dl when Hematocrit is >60 mg/dl,the test may not accurately detect significant hypoglycemia,and testing in the Laboratory should be considered if clinically indicated. Blood 09/26/2024 9:41 PM CAN FILLING ROOM SWEEPER 09/26/2024 9:41 PM CAN FILLING ROOM SWEEPER us Arnulfo Jordan MD LAB POCT ORDERABLES - DEVIC E Final Result Performing Organization Address [facility] Co de Phone Number [facility] [address] [facility] [place] [address] * POCT glucose (09/26/2024 6:18 PM CAN FILLING ROOM SWEEPER) Glucose, POC 91 70 - 199 mg/dL Comment: For Glucose values <35 mg/dl when Hematocrit is >60 mg/dl,the test may not accurately detect significant hypoglycemia,and testing in the Laboratory should be considered if clinically indicated. Blood 09/26/2024 6:18 PM CAN FILLING ROOM SWEEPER 09/26/2024 6:18 PM CAN FILLING ROOM SWEEPER Arnulfo Jordan MD LAB POCT ORDERABLES - DEVIC E Final Result Performing Organization Address [facility] Co de Phone Number [facility] [address] [place] [address] * POCT glucose (09/26/2024 2:51 PM CAN FILLING ROOM SWEEPER) [facility] Glucose, POC 89 70 - 199 mg/dL Comment: For Glucose values <35 mg/dl when Hematocrit is >60 mg/dl,the test may not accurately detect significant hypoglycemia,and testing in the Laboratory should be considered if clinically indicated. Blood 09/26/2024 2:51 PM CAN FILLING ROOM SWEEPER 09/26/2024 2:51 PM CAN FILLING ROOM SWEEPER Arnulfo Jordan MD LAB POCT ORDERABLES - DEVIC E Final Result Performing Organization Address [facility] Co de Phone Number [facility] [address] Department [place] [address] * (ABNORMAL) CBC with auto differential (09/26/2024 2:03 PM CAN FILLING ROOM SWEEPER) [facility] WBC 8.6 3.8 - 9.9 K/cumm Hgb 7.3(L) 11.9 - 15.5 g/dL [facility] Hct 24.2(L) 35.6 - 45.5 % [facility] Plt 308 150 - 400 K/cumm [facility] MPV 11.5 9.1 - 12.3 fL [facility] RBC 2.52(L) 3.90 - 5.20 M/cumm [facility] MCV 96.0 81.3 - 96.4 fL [facility] MCH 29.0 27.1 - 33.3 pg [facility] MCHC 30.2(L) 32.3 - 35.7 g/dL [facility] RDW CV 16.0(H) 11.1 - 14.9 % [facility] RDW SD 55.1(H) 35.7 - 48.1 fL [facility] NRBC abs 0.00 0.00 - 0.01 K/cumm [facility] Blood 09/26/2024 2:03 PM CAN FILLING ROOM SWEEPER 09/26/2024 2:11 PM CAN FILLING ROOM SWEEPER Arnulfo Jordan MD LAB BLOOD ORDERABLES Final Result [facility] [address] Department [place] [address] * (ABNORMAL) eGFR (09/26/2024 1:25 PM CAN FILLING ROOM SWEEPER) eGFR 57(L) >=60 mL/min/1. 73 m2 Comment: Interpretive Data Reference Interval Normal >/= 90 mL/min/1.73m2 Mildly decreased* 60 - 89 mL/min/1.73m2 Mildly to moderately decreased 45 - 59 mL/min/1.73m2 Moderately to severely decreased 30 - 44 mL/min/1.73m2 Severely decreased 15 - 29 mL/min/1.73m2 Kidney Failure < 15 mL/min/1.73m2 *Relative to young adult level Estimated glomerular [...] interpretive data was last reviewed 2021. Blood 09/26/2024 1:25 PM CAN FILLING ROOM SWEEPER 09/26/2024 1:33 PM CAN FILLING ROOM SWEEPER us Arnulfo Jordan MD LAB BLOOD ORDERABLES Final Result [facility] [address] Department [place] [address] * Differential, auto (09/26/2024 1:25 PM CAN FILLING ROOM SWEEPER) Neutrophil abs See Comment 1.5 - 6.5 Comment:CBC to be recollecte d due to possible falsely low Hgb on09/26/2024 13:53:40 CAN FILLING ROOM SWEEPER [id number] Imm gran abs See Comment 0.0 - 0.1 [facility] Comment:CBC to be recollecte d due to possible falsely low Hgb on09/26/2024 13:53:40 CAN FILLING ROOM SWEEPER [id number] Lymphocyte abs See Comment 0.8 - 3.3 [facility] Comment:CBC to be recollecte d due to possible falsely low Hgb on09/26/2024 13:53:40 CAN FILLING ROOM SWEEPER [id number] Monocyte abs See Comment 0.2 - 0.8 [facility] Comment:CBC to be recollecte d due to possible falsely low Hgb on09/26/2024 13:53:40 CAN FILLING ROOM SWEEPER [id number] Eosinophil abs See Comment 0.0 - 0.5 [facility] Comment:CBC to be recollecte d due to possible falsely low Hgb on09/26/2024 13:53:40 CAN FILLING ROOM SWEEPER [id number] Basophil abs See Comment 0.0 - 0.1 [facility] Comment:CBC to be recollecte d due to possible falsely low Hgb on09/26/2024 13:53:40 CAN FILLING ROOM SWEEPER [id number] Neutrophil pct See Comment [facility] Comment: CBC to be recollected due to possible falsely low Hgb on09/26/2024 13:53:40 CAN FILLING ROOM SWEEPER [id number] Interpretive Data Percent cell count reference ranges are not reported, since discordance with absolute values may lead to misinterpretation of CBC data. Current Interpretive Data was last revised on 2017. Imm gran pct See Comment [facility] Comment: CBC to be recollected due to possible falsely low Hgb on09/26/2024 13:53:40 CAN FILLING ROOM SWEEPER [id number] Interpretive Data Percent cell count reference ranges are not reported, since discordance with absolute values may lead to misinterpretation of CBC data. Current Interpretive Data was last revised on 2017. Lymphocyte pct See Comment [facility] Comment: CBC to be recollected due to possible falsely low Hgb on09/26/2024 13:53:40 CAN FILLING ROOM SWEEPER [id number] Interpretive Data Percent cell count reference ranges are not reported, since discordance with absolute values may lead to misinterpretation of CBC data. Current Interpretive Data was last revised on 2017. Monocyte pct See Comment [facility] Comment: CBC to be recollected due to possible falsely low Hgb on09/26/2024 13:53:40 CAN FILLING ROOM SWEEPER [id number] Interpretive Data Percent cell count reference ranges are not reported, since discordance with absolute values may lead to misinterpretation of CBC data. Current Interpretive Data was last revised on 2017. Eosinophil pct See Comment [facility] Comment: CBC to be recollected due to possible falsely low Hgb on09/26/2024 13:53:40 CAN FILLING ROOM SWEEPER [id number] Interpretive Data Percent cell count reference ranges are not reported, since discordance with absolute values may lead to misinterpretation of CBC data. Current Interpretive Data was last revised on 2017. Basophil pct See Comment [facility] Comment: CBC to be recollected due to possible falsely low Hgb on09/26/2024 13:53:40 CAN FILLING ROOM SWEEPER [id number] Interpretive Data Percent cell count reference ranges are not reported, since discordance with absolute values may lead to misinterpretation of CBC data. Current Interpretive Data was last revised on 2017. Blood 09/26/2024 1:25 PM CAN FILLING ROOM SWEEPER 09/26/2024 1:33 PM CAN FILLING ROOM SWEEPER us Arnulfo Jordan MD LAB BLOOD ORDERABLES Edited Result - Final [facility] [address] Department [place] [address] * CBC with auto differential (09/26/2024 1:25 PM CAN FILLING ROOM SWEEPER) WBC See Comment 3.8 - 9.9 Comment: Test results inaccurately filed to this patient's record. Test will be credited. CBC to be recollected due to possible falsely low Hgb on09/26/2024 13:53:40 CAN FILLING ROOM SWEEPER [id number] Hgb See Comment 11.9 - 15.5 [facility] Comment: Test results inaccurately filed to this patient's record. Test will be credited. CBC to be recollected due to possible falsely low Hgb on09/26/2024 13:53:40 CAN FILLING ROOM SWEEPER [id number] Hct See Comment 35.6 - 45.5 [facility] Comment: Test results inaccurately filed to this patient's record. Test will be credited. CBC to be recollected due to possible falsely low Hgb on09/26/2024 13:53:40 CAN FILLING ROOM SWEEPER [id number] Plt See Comment 150 - 400 K/cumm [facility] Comment: Test results inaccurately filed to this patient's record. Test will be credited. CBC to be recollected due to possible falsely low Hgb on09/26/2024 13:53:40 CAN FILLING ROOM SWEEPER [id number] MPV See Comment 9.1 - 12.3 [facility] Comment: Test results inaccurately filed to this patient's record. Test will be credited. CBC to be recollected due to possible falsely low Hgb on09/26/2024 13:53:40 CAN FILLING ROOM SWEEPER [id number] RBC See Comment 3.90 - 5.20 [facility] Comment: Test results inaccurately filed to this patient's record. Test will be credited. CBC to be recollected due to possible falsely low Hgb on09/26/2024 13:53:40 CAN FILLING ROOM SWEEPER [id number] MCV See Comment 81.3 - 96.4 [facility] Comment: Test results inaccurately filed to this patient's record. Test will be credited. CBC to be recollected due to possible falsely low Hgb on09/26/2024 13:53:40 CAN FILLING ROOM SWEEPER [id number] MCH See Comment 27.1 - 33.3 [facility] Comment: Test results inaccurately filed to this patient's record. Test will be credited. CBC to be recollected due to possible falsely low Hgb on09/26/2024 13:53:40 CAN FILLING ROOM SWEEPER [id number] MCHC See Comment 32.3 - 35.7 [facility] Comment: Test results inaccurately filed to this patient's record. Test will be credited. CBC to be recollected due to possible falsely low Hgb on09/26/2024 13:53:40 CAN FILLING ROOM SWEEPER [id number] RDW CV See Comment 11.1 - 14.9 [facility] Comment: Test results inaccurately filed to this patient's record. Test will be credited. CBC to be recollected due to possible falsely low Hgb on09/26/2024 13:53:40 CAN FILLING ROOM SWEEPER [id number] RDW SD See Comment 35.7 - 48.1 [facility] Comment: Test results inaccurately filed to this patient's record. Test will be credited. CBC to be recollected due to possible falsely low Hgb on09/26/2024 13:53:40 CAN FILLING ROOM SWEEPER [id number] NRBC abs See Comment 0.00 - 0.01 K/cumm [facility] Comment:CBC to be recollecte d due to possible falsely low Hgb on09/26/2024 13:53:40 CAN FILLING ROOM SWEEPER [id number] Blood 09/26/2024 1:25 PM CAN FILLING ROOM SWEEPER 09/26/2024 1:33 PM CAN FILLING ROOM SWEEPER Arnulfo Jordan MD LAB BLOOD ORDERABLES Edited Result - Final [facility] [address] Department [place] [address] * (ABNORMAL) Comprehensive metabolic panel (09/26/2024 1:25 PM CAN FILLING ROOM SWEEPER) Sodium 142 135 - 145 mmol/L Potassium, pl 3.2(L) 3.3 - 4.9 mmol/L [facility] Chloride 112(H) 97 - 110 mmol/L [facility] CO2 21(L) 22 - 32 mmol/L [facility] Anion gap 9 2 - 15 mmol/L [facility] BUN 23 6 - 25 mg/dL [facility] Creatinine 1.18(H) 0.60 - 1.10 mg/dL [facility] Glucose 79 70 - 199 mg/dL [facility] Comment: Interpretive Data Fasting glucose >/= 126 mg/dl is diagnostic for diabetes. Fasting is defined as no caloric intake for at least 8 hours. Fasting glucose between 100 mg/dl to 125 mg/dl is diagnostic of prediabetes. In a patient with classic symptoms of hyperglycemia or hyperglycemic crisis, a random glucose >/= 200 mg/dl is diagnostic for diabetes. In the absence of unequivocal hyperglycemia, results should be confirmed by repeat testing. The classification and Diagnosis of Diabetes Diabetes Care 202; 46: S19-S40. Current interpretive data was last revised 2022. Calcium 7.4(L) 8.5 - 10.3 mg/dL [facility] Bilirubin, total 0.2 0.1 - 1.2 mg/dL [facility] Protein, pl 5.6(L) 6.5 - 8.5 g/dL [facility] Albumin 1.8(L) 3.5 - 5.0 g/dL [facility] Alk phos 135(H) 40 - 130 Units/L [facility] ALT 13 7 - 45 Units/L [facility] AST 32 10 - 45 Units/L [facility] Blood 09/26/2024 1:25 PM CAN FILLING ROOM SWEEPER 09/26/2024 1:33 PM CAN FILLING ROOM SWEEPER Arnulfo Jordan MD LAB BLOOD ORDERABLES Final Result [facility] [address] Department [place] [address] * POCT glucose (09/26/2024 10:10 AM CAN FILLING ROOM SWEEPER) [facility] Glucose, POC 100 70 - 199 mg/dL Comment: For Glucose values <35 mg/dl when Hematocrit is >60 mg/dl,the test may not accurately detect significant hypoglycemia,and testing in the Laboratory should be considered if clinically indicated. Blood 09/26/2024 10:1 0 AM CAN FILLING ROOM SWEEPER 09/26/2024 10:10 AM CAN FILLING ROOM SWEEPER us Arnulfo Jordan MD LAB POCT ORDERABLES - DEVIC E Final Result Performing Organization Address [facility] Co de Phone Number [facility] [address] Department [place] [address] * POCT glucose (09/26/2024 5:04 AM CAN FILLING ROOM SWEEPER) [facility] Glucose, POC 94 70 - 199 mg/dL Comment: For Glucose values <35 mg/dl when Hematocrit is >60 mg/dl,the test may not accurately detect significant hypoglycemia,and testing in the Laboratory should be considered if clinically indicated. Blood 09/26/2024 5:04 AM CAN FILLING ROOM SWEEPER 09/26/2024 5:04 AM CAN FILLING ROOM SWEEPER us Arnulfo Jordan MD LAB POCT ORDERABLES - DEVIC E Final Result Performing Organization Address [facility]/[place] de Phone Number [facility] [address] [place] [address] * C. difficile testing Stool (09/26/2024 2:18 AM CAN FILLING ROOM SWEEPER) [facility] Negative Toxin Result Negative Negative [facility] C. diff result Negative, free toxin Negative, free toxin [facility] C. diff interp Negative for toxigenic Clostridioides (Clostridium) difficile. Analysis was performed using a glutamate dehydrogenase antigen detection assay combined with a C. difficile toxin detection assay. [facility] Stool 09/26/2024 2:18 AM CAN FILLING ROOM SWEEPER 09/26/2024 2:41 AM CAN FILLING ROOM SWEEPER us Arnulfo Jordan MD LAB MICROBIOLOGY - GENERAL ORDERABLES Final Result Performing Organization Address [facility] Co de Phone Number [facility] [address] [place] [address] * POCT glucose (09/26/2024 12:01 AM CAN FILLING ROOM SWEEPER) Glucose, POC 108 70 - 199 mg/dL Comment: For Glucose values <35 mg/dl when Hematocrit is >60 mg/dl,the test may not accurately detect significant hypoglycemia,and testing in the Laboratory should be considered if clinically indicated. Blood 09/26/2024 12:0 1 AM CAN FILLING ROOM SWEEPER 09/26/2024 12:01 AM CAN FILLING ROOM SWEEPER Result [facility] Arnulfo Jordan MD LAB POCT ORDERABLES - DEVIC E Final Result Performing Organization Address [facility]/[place] de Phone Number [facility] [address] [facility] [place] [address] * POCT glucose (09/25/2024 8:35 PM CAN FILLING ROOM SWEEPER) Glucose, POC 92 70 - 199 mg/dL Comment: For Glucose values <35 mg/dl when Hematocrit is >60 mg/dl,the test may not accurately detect significant hypoglycemia,and testing in the Laboratory should be considered if clinically indicated. Blood 09/25/2024 8:35 PM CAN FILLING ROOM SWEEPER 09/25/2024 8:35 PM CAN FILLING ROOM SWEEPER Result [facility] Arnulfo Jordan MD LAB POCT ORDERABLES - DEVIC E Final Result Performing Organization Address [facility] Co de Phone Number [facility] [address] [facility] [place] [address] * POCT glucose (09/25/2024 4:36 PM CAN FILLING ROOM SWEEPER) Glucose, POC 97 70 - 199 mg/dL Comment: For Glucose values <35 mg/dl when Hematocrit is >60 mg/dl,the test may not accurately detect significant hypoglycemia,and testing in the Laboratory should be considered if clinically indicated. Blood 09/25/2024 4:36 PM CAN FILLING ROOM SWEEPER 09/25/2024 4:36 PM CAN FILLING ROOM SWEEPER Result [facility] Arnulfo Jordan MD LAB POCT ORDERABLES - DEVIC E Final Result Performing Organization Address City/[facility]/ZIP Co de Phone Number [facility] [address] Department [place] [address] * POCT glucose (09/25/2024 11:55 AM CAN FILLING ROOM SWEEPER) Glucose, POC 87 70 - 199 mg/dL Comment: For Glucose values <35 mg/dl when Hematocrit is >60 mg/dl,the test may not accurately detect significant hypoglycemia,and testing in the Laboratory should be considered if clinically indicated. Blood 09/25/2024 11:5 5 AM CAN FILLING ROOM SWEEPER 09/25/2024 11:55 AM CAN FILLING ROOM SWEEPER Arnulfo Jordan MD LAB POCT ORDERABLES - DEVIC E Final Result Performing Organization Address [facility] Co de Phone Number [facility] [address] Department [place] [address] * (ABNORMAL) eGFR (09/25/2024 8:32 AM CAN FILLING ROOM SWEEPER) Pathologist [facility] eGFR 53(L) >=60 mL/min/1. 73 m2 Comment: Interpretive Data Reference Interval Normal >/= 90 mL/min/1.73m2 Mildly decreased* 60 - 89 mL/min/1.73m2 Mildly to moderately decreased 45 - 59 mL/min/1.73m2 Moderately to severely decreased 30 - 44 mL/min/1.73m2 Severely decreased 15 - 29 mL/min/1.73m2 Kidney Failure < 15 mL/min/1.73m2 *Relative to young adult level Estimated glomerular [...] interpretive data was last reviewed 2021. Blood 09/25/2024 8:32 AM CAN FILLING ROOM SWEEPER 09/25/2024 8:46 AM CAN FILLING ROOM SWEEPER us Arnulfo Jordan MD LAB BLOOD ORDERABLES Final Result [facility] [address] Department [place] [address] * (ABNORMAL) Differential, auto (09/25/2024 8:32 AM CAN FILLING ROOM SWEEPER) Neutrophil abs 7.2(H) 1.5 - 6.5 K/cumm Imm gran abs 0.1 0.0 - 0.1 K/cumm [facility] Lymphocyte abs 1.1 0.8 - 3.3 K/cumm [facility] Monocyte abs 0.7 0.2 - 0.8 K/cumm [facility] Eosinophil abs 0.2 0.0 - 0.5 K/cumm [facility] Basophil abs 0.1 0.0 - 0.1 K/cumm [facility] Neutrophil pct 78.5 % [facility] Comment: Interpretive Data Percent cell count reference ranges are not reported, since discordance with absolute values may lead to misinterpretation of CBC data. Current Interpretive Data was last revised on 2017. Imm gran pct 0.5 % [facility] Comment: Interpretive Data Percent cell count reference ranges are not reported, since discordance with absolute values may lead to misinterpretation of CBC data. Current Interpretive Data was last revised on 2017. Lymphocyte pct 11.6 % [facility] Comment: Interpretive Data Percent cell count reference ranges are not reported, since discordance with absolute values may lead to misinterpretation of CBC data. Current Interpretive Data was last revised on 2017. Monocyte pct 7.3 % [facility] Comment: Interpretive Data Percent cell count reference ranges are not reported, since discordance with absolute values may lead to misinterpretation of CBC data. Current Interpretive Data was last revised on 2017. Eosinophil pct 1.6 % [facility] Comment: Interpretive Data Percent cell count reference ranges are not reported, since discordance with absolute values may lead to misinterpretation of CBC data. Current Interpretive Data was last revised on 2017. Basophil pct 0.5 % [facility] Comment: Interpretive Data Percent cell count reference ranges are not reported, since discordance with absolute values may lead to misinterpretation of CBC data. Current Interpretive Data was last revised on 2017. Blood 09/25/2024 8:32 AM CAN FILLING ROOM SWEEPER 09/25/2024 8:46 AM CAN FILLING ROOM SWEEPER Arnulfo Jordan MD LAB BLOOD ORDERABLES Final Result Performing Organization Address [facility] Co de Phone Number [facility] [address] Department [place] [address] * POCT glucose (09/25/2024 8:32 AM CAN FILLING ROOM SWEEPER) [facility] Glucose, POC 89 70 - 199 mg/dL Comment: For Glucose values <35 mg/dl when Hematocrit is >60 mg/dl,the test may not accurately detect significant hypoglycemia,and testing in the Laboratory should be considered if clinically indicated. Blood 09/25/2024 8:32 AM CAN FILLING ROOM SWEEPER 09/25/2024 8:32 AM CAN FILLING ROOM SWEEPER Arnulfo Jordan MD LAB POCT ORDERABLES - DEVIC E Final Result Performing Organization Address [facility] Co de Phone Number [facility] [address] Department [place] [address] * (ABNORMAL) CBC with auto differential (09/25/2024 8:32 AM CAN FILLING ROOM SWEEPER) [facility] WBC 9.2 3.8 - 9.9 K/cumm Hgb 7.2(L) 11.9 - 15.5 g/dL [facility] Hct 24.6(L) 35.6 - 45.5 % [facility] Plt 259 150 - 400 K/cumm [facility] MPV 11.7 9.1 - 12.3 fL [facility] RBC 2.49(L) 3.90 - 5.20 M/cumm [facility] MCV 98.8(H) 81.3 - 96.4 fL [facility] MCH 28.9 27.1 - 33.3 pg [facility] MCHC 29.3(L) 32.3 - 35.7 g/dL [facility] RDW CV 15.8(H) 11.1 - 14.9 % [facility] RDW SD 55.9(H) 35.7 - 48.1 fL [facility] NRBC abs 0.00 0.00 - 0.01 K/cumm [facility] Blood 09/25/2024 8:32 AM CAN FILLING ROOM SWEEPER 09/25/2024 8:46 AM CAN FILLING ROOM SWEEPER Arnulfo Jordan MD LAB BLOOD ORDERABLES Final Result [facility] [address] Department [place] [address] * (ABNORMAL) Comprehensive metabolic panel (09/25/2024 8:32 AM CAN FILLING ROOM SWEEPER) Sodium 143 135 - 145 mmol/L Potassium, pl 3.2(L) 3.3 - 4.9 mmol/L [facility] Chloride 111(H) 97 - 110 mmol/L [facility] CO2 20(L) 22 - 32 mmol/L [facility] Anion gap 12 2 - 15 mmol/L [facility] BUN 26(H) 6 - 25 mg/dL [facility] Creatinine 1.24(H) 0.60 - 1.10 mg/dL [facility] Glucose 85 70 - 199 mg/dL [facility] Comment: Interpretive Data Fasting glucose >/= 126 mg/dl is diagnostic for diabetes. Fasting is defined as no caloric intake for at least 8 hours. Fasting glucose between 100 mg/dl to 125 mg/dl is diagnostic of prediabetes. In a patient with classic symptoms of hyperglycemia or hyperglycemic crisis, a random glucose >/= 200 mg/dl is diagnostic for diabetes. In the absence of unequivocal hyperglycemia, results should be confirmed by repeat testing. The classification and Diagnosis of Diabetes Diabetes Care 202; 46: S19-S40. Current interpretive data was last revised 2022. Calcium 7.7(L) 8.5 - 10.3 mg/dL [facility] Bilirubin, total 0.2 0.1 - 1.2 mg/dL [facility] Protein, pl 5.8(L) 6.5 - 8.5 g/dL [facility] Albumin 1.9(L) 3.5 - 5.0 g/dL [facility] Alk phos 137(H) 40 - 130 Units/L [facility] ALT 13 7 - 45 Units/L [facility] AST 28 10 - 45 Units/L [facility] Blood 09/25/2024 8:32 AM CAN FILLING ROOM SWEEPER 09/25/2024 8:46 AM CAN FILLING ROOM SWEEPER Arnulfo Jordan MD LAB BLOOD ORDERABLES Final Result Performing Organization Address [facility] Co de Phone Number [facility] [address] Department [place] [address] * POCT glucose (09/25/2024 4:49 AM CAN FILLING ROOM SWEEPER) Glucose, POC 86 70 - 199 mg/dL Comment: For Glucose values <35 mg/dl when Hematocrit is >60 mg/dl,the test may not accurately detect significant hypoglycemia,and testing in the Laboratory should be considered if clinically indicated. Blood 09/25/2024 4:49 AM CAN FILLING ROOM SWEEPER 09/25/2024 4:49 AM CAN FILLING ROOM SWEEPER Arnulfo Jordan MD LAB POCT ORDERABLES - DEVIC E Final Result Performing Organization Address City/[facility]/ZIP Co de Phone Number [facility] [address] Department [place] [address] * POCT glucose (09/25/2024 12:48 AM CAN FILLING ROOM SWEEPER) Glucose, POC 83 70 - 199 mg/dL Comment: For Glucose values <35 mg/dl when Hematocrit is >60 mg/dl,the test may not accurately detect significant hypoglycemia,and testing in the Laboratory should be considered if clinically indicated. Blood 09/25/2024 12:4 8 AM CAN FILLING ROOM SWEEPER 09/25/2024 12:48 AM CAN FILLING ROOM SWEEPER Arnulfo Jordan MD LAB POCT ORDERABLES - DEVIC E Final Result Performing Organization Address [facility] de Phone Number [facility] [address] [facility] [place] [address] * POCT glucose (09/24/2024 8:56 PM CAN FILLING ROOM SWEEPER) Glucose, POC 83 70 - 199 mg/dL Comment: For Glucose values <35 mg/dl when Hematocrit is >60 mg/dl,the test may not accurately detect significant hypoglycemia,and testing in the Laboratory should be considered if clinically indicated. Blood 09/24/2024 8:56 PM CAN FILLING ROOM SWEEPER 09/24/2024 8:56 PM CAN FILLING ROOM SWEEPER Result [facility] Arnulfo Jordan MD LAB POCT ORDERABLES - DEVIC E Final Result Performing Organization Address [facility] de Phone Number [facility] [address] [facility] [place] [address] * POCT glucose (09/24/2024 4:20 PM CAN FILLING ROOM SWEEPER) Glucose, POC 83 70 - 199 mg/dL Comment: For Glucose values <35 mg/dl when Hematocrit is >60 mg/dl,the test may not accurately detect significant hypoglycemia,and testing in the Laboratory should be considered if clinically indicated. Blood 09/24/2024 4:20 PM CAN FILLING ROOM SWEEPER 09/24/2024 4:20 PM CAN FILLING ROOM SWEEPER Result [facility] Arnulfo Jordan MD LAB POCT ORDERABLES - DEVIC E Final Result Performing Organization Address [facility] Co de Phone Number [facility] [address] [facility] [place] [address] * POCT glucose (09/24/2024 12:13 PM CAN FILLING ROOM SWEEPER) Glucose, POC 91 70 - 199 mg/dL Comment: For Glucose values <35 mg/dl when Hematocrit is >60 mg/dl,the test may not accurately detect significant hypoglycemia,and testing in the Laboratory should be considered if clinically indicated. Blood 09/24/2024 12:1 3 PM CAN FILLING ROOM SWEEPER 09/24/2024 12:13 PM CAN FILLING ROOM SWEEPER us Arnulfo Jordan MD LAB POCT ORDERABLES - DEVIC E Final Result [facility] [address] Department [place] [address] * XR Chest 1 View (09/24/2024 8:18 AM CAN FILLING ROOM SWEEPER) Anatomical Region Laterality Modality Body, Chest N/A Computed Radiogr aphy 09/24/2024 8:36 AM CAN FILLING ROOM SWEEPER Impressions 09/24/2024 8:36 AM CAN FILLING ROOM SWEEPER Patchy airspace opacities greatest in the left lung base but also projecting over the left hilum and to a lesser extent the right hilum are not substantially changed and likely representing multifocal pneumonia and/or sequela of aspiration. Trace left pleural effusion. No right pleural effusion. No pneumothorax. Heart size is stable. Electronically signed by: Nithin Gonzalez MD, PHD Narrative 09/24/2024 8:36 AM CAN FILLING ROOM SWEEPER EXAMINATION: XR CHEST 1 VIEW HISTORY: Shortness of breath COMPARISON: 09/22/2024 Procedure Note Nithin Gonzalez MD PhD - 09/24/2024 EXAMINATION: XR CHEST 1 VIEW HISTORY: Shortness of breath COMPARISON: 09/22/2024 IMPRESSION: Patchy airspace opacities greatest in the left lung base but also projecting over the left hilum and to a lesser extent the right hilum are not substantially changed and likely representing multifocal pneumonia and/or sequela of aspiration. Trace left pleural effusion. No right pleural effusion. No pneumothorax. Heart size is stable. Electronically signed by: Nithin Gonzalez MD, PHD us Flo Villagran MD IMG XR PROCEDURES Final Resu lt * POCT glucose (09/24/2024 4:12 AM CAN FILLING ROOM SWEEPER) Glucose, POC 129 70 - 199 mg/dL Comment: For Glucose values <35 mg/dl when Hematocrit is >60 mg/dl,the test may not accurately detect significant hypoglycemia,and testing in the Laboratory should be considered if clinically indicated. Blood 09/24/2024 4:12 AM CAN FILLING ROOM SWEEPER 09/24/2024 4:12 AM CAN FILLING ROOM SWEEPER Arnulfo Jordan MD LAB POCT ORDERABLES - DEVIC E Final Result Performing Organization Address [facility]/[place] de Phone Number [facility] [address] [facility] [place] [address] * POCT glucose (09/24/2024 2:44 AM CAN FILLING ROOM SWEEPER) Glucose, POC 132 70 - 199 mg/dL Comment: For Glucose values <35 mg/dl when Hematocrit is >60 mg/dl,the test may not accurately detect significant hypoglycemia,and testing in the Laboratory should be considered if clinically indicated. Blood 09/24/2024 2:44 AM CAN FILLING ROOM SWEEPER 09/24/2024 2:44 AM CAN FILLING ROOM SWEEPER Result [facility] Arnulfo Jordan MD LAB POCT ORDERABLES - DEVIC E Final Result Performing Organization Address [facility] de Phone Number [facility] [address] [place] [address] * (ABNORMAL) POCT glucose (09/24/2024 1:06 AM CAN FILLING ROOM SWEEPER) Glucose, POC 59(L) 70 - 199 mg/dL Comment: For Glucose values <35 mg/dl when Hematocrit is >60 mg/dl,the test may not accurately detect significant hypoglycemia,and testing in the Laboratory should be considered if clinically indicated. Blood 09/24/2024 1:06 AM CAN FILLING ROOM SWEEPER 09/24/2024 1:06 AM CAN FILLING ROOM SWEEPER Result [facility] Arnulfo Jordan MD LAB POCT ORDERABLES - DEVIC E Final Result Performing Organization Address [facility] Co de Phone Number [facility] [address] [facility] [place] [address] * (ABNORMAL) POCT glucose (09/24/2024 12:44 AM CAN FILLING ROOM SWEEPER) Glucose, POC 65(L) 70 - 199 mg/dL Comment: For Glucose values <35 mg/dl when Hematocrit is >60 mg/dl,the test may not accurately detect significant hypoglycemia,and testing in the Laboratory should be considered if clinically indicated. Blood 09/24/2024 12:4 4 AM CAN FILLING ROOM SWEEPER 09/24/2024 12:44 AM CAN FILLING ROOM SWEEPER Arnulfo Jordan MD LAB POCT ORDERABLES - DEVIC E Final Result Performing Organization Address [facility] Co de Phone Number [facility] [address] [facility] [place] [address] * (ABNORMAL) POCT glucose (09/24/2024 12:22 AM CAN FILLING ROOM SWEEPER) Glucose, POC 68(L) 70 - 199 mg/dL Comment: For Glucose values <35 mg/dl when Hematocrit is >60 mg/dl,the test may not accurately detect significant hypoglycemia,and testing in the Laboratory should be considered if clinically indicated. Blood 09/24/2024 12:2 2 AM CAN FILLING ROOM SWEEPER 09/24/2024 12:22 AM CAN FILLING ROOM SWEEPER Arnulfo Jordan MD LAB POCT ORDERABLES - DEVIC E Final Result Performing Organization Address [facility] Co de Phone Number [facility] [address] [place] [address] * POCT glucose (09/23/2024 9:34 PM CAN FILLING ROOM SWEEPER) Glucose, POC 80 70 - 199 mg/dL Comment: For Glucose values <35 mg/dl when Hematocrit is >60 mg/dl,the test may not accurately detect significant hypoglycemia,and testing in the Laboratory should be considered if clinically indicated. Blood 09/23/2024 9:34 PM CAN FILLING ROOM SWEEPER 09/23/2024 9:34 PM CAN FILLING ROOM SWEEPER Guillermo Nair DO LAB POCT ORDERABLES - DE VICE Final Result Performing Organization Address [facility] Co de Phone Number [facility] [address] [facility] [place] [address] * POCT glucose (09/23/2024 4:10 PM CAN FILLING ROOM SWEEPER) Glucose, POC 121 70 - 199 mg/dL Comment: For Glucose values <35 mg/dl when Hematocrit is >60 mg/dl,the test may not accurately detect significant hypoglycemia,and testing in the Laboratory should be considered if clinically indicated. Blood 09/23/2024 4:10 PM CAN FILLING ROOM SWEEPER 09/23/2024 4:10 PM CAN FILLING ROOM SWEEPER Guillermo Nair DO LAB POCT ORDERABLES - DE VICE Final Result Performing Organization Address [facility] Co de Phone Number [facility] [address] [facility] [place] [address] * POCT glucose (09/23/2024 1:10 PM CAN FILLING ROOM SWEEPER) Glucose, POC 115 70 - 199 mg/dL Comment: For Glucose values <35 mg/dl when Hematocrit is >60 mg/dl,the test may not accurately detect significant hypoglycemia,and testing in the Laboratory should be considered if clinically indicated. Blood 09/23/2024 1:10 PM CAN FILLING ROOM SWEEPER 09/23/2024 1:10 PM CAN FILLING ROOM SWEEPER Flo Villagran MD LAB POCT ORDERABLES - DEVICE Final Result Performing Organization Address [facility] Co de Phone Number [facility] [address] [facility] [place] [address] * POCT glucose (09/23/2024 12:18 PM CAN FILLING ROOM SWEEPER) Glucose, POC 83 70 - 199 mg/dL Comment: For Glucose values <35 mg/dl when Hematocrit is >60 mg/dl,the test may not accurately detect significant hypoglycemia,and testing in the Laboratory should be considered if clinically indicated. Blood 09/23/2024 12:1 8 PM CAN FILLING ROOM SWEEPER 09/23/2024 12:18 PM CAN FILLING ROOM SWEEPER Flo Villagran MD LAB POCT ORDERABLES - DEVICE Final Result Performing Organization Address [facility]/[place] de Phone Number [facility] [address] [facility] [place], [place] [id number] * (ABNORMAL) POCT glucose (09/23/2024 11:55 AM CAN FILLING ROOM SWEEPER) Glucose, POC 69(L) 70 - 199 mg/dL Comment: For Glucose values <35 mg/dl when Hematocrit is >60 mg/dl,the test may not accurately detect significant hypoglycemia,and testing in the Laboratory should be considered if clinically indicated. Blood 09/23/2024 11:5 5 AM CAN FILLING ROOM SWEEPER 09/23/2024 11:55 AM CAN FILLING ROOM SWEEPER us Flo Villagran MD LAB POCT ORDERABLES - DEVICE Final Result Performing Organization Address [facility] Co de Phone Number [facility] [address] [facility] [place] [address] * (ABNORMAL) POCT glucose (09/23/2024 11:54 AM CAN FILLING ROOM SWEEPER) Glucose, POC 63(L) 70 - 199 mg/dL Comment: For Glucose values <35 mg/dl when Hematocrit is >60 mg/dl,the test may not accurately detect significant hypoglycemia,and testing in the Laboratory should be considered if clinically indicated. Blood 09/23/2024 11:5 4 AM CAN FILLING ROOM SWEEPER 09/23/2024 11:54 AM CAN FILLING ROOM SWEEPER us Flo Villagran MD LAB POCT ORDERABLES - DEVICE Final Result Performing Organization Address [facility] de Phone Number [facility] [address] [facility] [place], [place] [id number] * POCT glucose (09/23/2024 7:47 AM CAN FILLING ROOM SWEEPER) Glucose, POC 71 70 - 199 mg/dL Comment: For Glucose values <35 mg/dl when Hematocrit is >60 mg/dl,the test may not accurately detect significant hypoglycemia,and testing in the Laboratory should be considered if clinically indicated. Blood 09/23/2024 7:47 AM CAN FILLING ROOM SWEEPER 09/23/2024 7:47 AM CAN FILLING ROOM SWEEPER Flo Villagran MD LAB POCT ORDERABLES - DEVICE Final Result Performing Organization Address [facility] de Phone Number [facility] [address] [facility] [place] [address] * POCT glucose (09/23/2024 3:27 AM CAN FILLING ROOM SWEEPER) Glucose, POC 92 70 - 199 mg/dL Comment: For Glucose values <35 mg/dl when Hematocrit is >60 mg/dl,the test may not accurately detect significant hypoglycemia,and testing in the Laboratory should be considered if clinically indicated. Blood 09/23/2024 3:27 AM CAN FILLING ROOM SWEEPER 09/23/2024 3:27 AM CAN FILLING ROOM SWEEPER Flo Villagran MD LAB POCT ORDERABLES - DEVICE Final Result Performing Organization Address [facility] de Phone Number [facility] [address] [facility] [place] [address] * POCT glucose (09/23/2024 1:13 AM CAN FILLING ROOM SWEEPER) Glucose, POC 113 70 - 199 mg/dL Comment: For Glucose values <35 mg/dl when Hematocrit is >60 mg/dl,the test may not accurately detect significant hypoglycemia,and testing in the Laboratory should be considered if clinically indicated. Blood 09/23/2024 1:13 AM CAN FILLING ROOM SWEEPER 09/23/2024 1:13 AM CAN FILLING ROOM SWEEPER Flo Villagran MD LAB POCT ORDERABLES - DEVICE Final Result Performing Organization Address [facility] Co de Phone Number [facility] [address] [place] [address] * POCT glucose (09/23/2024 12:17 AM CAN FILLING ROOM SWEEPER) Glucose, POC 195 70 - 199 mg/dL Comment: For Glucose values <35 mg/dl when Hematocrit is >60 mg/dl,the test may not accurately detect significant hypoglycemia,and testing in the Laboratory should be considered if clinically indicated. Blood 09/23/2024 12:1 7 AM CAN FILLING ROOM SWEEPER 09/23/2024 12:17 AM CAN FILLING ROOM SWEEPER Flo Villagran MD LAB POCT ORDERABLES - DEVICE Final Result Performing Organization Address [facility] de Phone Number [facility] [address] [place] [address] * (ABNORMAL) POCT glucose (09/22/2024 11:54 PM CAN FILLING ROOM SWEEPER) Glucose, POC 63(L) 70 - 199 mg/dL Comment: For Glucose values <35 mg/dl when Hematocrit is >60 mg/dl,the test may not accurately detect significant hypoglycemia,and testing in the Laboratory should be considered if clinically indicated. Blood 09/22/2024 11:5 4 PM CAN FILLING ROOM SWEEPER 09/22/2024 11:54 PM CAN FILLING ROOM SWEEPER Flo Villagran MD LAB POCT ORDERABLES - DEVICE Final Result Performing Organization Address [facility] Co de Phone Number [facility] [address] [place] [address] * (ABNORMAL) Blood gas, arterial (09/22/2024 8:33 PM CAN FILLING ROOM SWEEPER) pH, Art 7.44 7.35 - 7.45 PCO2, Arterial 37 35 - 45 mmHg [facility] PO2, Arterial 81(L) 83 - 108 mmHg [facility] HCO3 Art (Calculated) 25 20 - 30 mmol/L [facility] BE, art 1 mmol/L [facility] Comment: Interpretive Data No Reference Range Established Current Interpretive Data was last revised on 2017 O2 Sat Art (Calculated) 96 94 - 98 % [facility] Blood 09/22/2024 8:33 PM CAN FILLING ROOM SWEEPER 09/22/2024 8:36 PM CAN FILLING ROOM SWEEPER us Chad Veras MD LAB BLOOD ORDERABLES Final R esult Performing Organization Address [facility] Co de Phone Number [facility] [address] Department [place], [place] [id number] * POCT glucose (09/22/2024 7:46 PM CAN FILLING ROOM SWEEPER) Glucose, POC 95 70 - 199 mg/dL Comment: For Glucose values <35 mg/dl when Hematocrit is >60 mg/dl,the test may not accurately detect significant hypoglycemia,and testing in the Laboratory should be considered if clinically indicated. Blood 09/22/2024 7:46 PM CAN FILLING ROOM SWEEPER 09/22/2024 7:46 PM CAN FILLING ROOM SWEEPER us Flo Villagran MD LAB POCT ORDERABLES - DEVICE Final Result Performing Organization Address City/[facility]/ZIP Co de Phone Number [facility] [address] [place] [address] * POCT glucose (09/22/2024 4:04 PM CAN FILLING ROOM SWEEPER) Glucose, POC 166 70 - 199 mg/dL Comment: For Glucose values <35 mg/dl when Hematocrit is >60 mg/dl,the test may not accurately detect significant hypoglycemia,and testing in the Laboratory should be considered if clinically indicated. Blood 09/22/2024 4:04 PM CAN FILLING ROOM SWEEPER 09/22/2024 4:04 PM CAN FILLING ROOM SWEEPER Flo Villagran MD LAB POCT ORDERABLES - DEVICE Final Result Performing Organization Address [facility] de Phone Number [facility] [address] [place] [address] * POCT glucose (09/22/2024 11:51 AM CAN FILLING ROOM SWEEPER) Glucose, POC 187 70 - 199 mg/dL Comment: For Glucose values <35 mg/dl when Hematocrit is >60 mg/dl,the test may not accurately detect significant hypoglycemia,and testing in the Laboratory should be considered if clinically indicated. Blood 09/22/2024 11:5 1 AM CAN FILLING ROOM SWEEPER 09/22/2024 11:51 AM CAN FILLING ROOM SWEEPER Flo Villagran MD LAB POCT ORDERABLES - DEVICE Final Result Performing Organization Address [facility] de Phone Number [facility] [address] [facility] [place] [address] * (ABNORMAL) POCT glucose (09/22/2024 8:42 AM CAN FILLING ROOM SWEEPER) Glucose, POC 210(H) 70 - 199 mg/dL Comment: For Glucose values <35 mg/dl when Hematocrit is >60 mg/dl,the test may not accurately detect significant hypoglycemia,and testing in the Laboratory should be considered if clinically indicated. Blood 09/22/2024 8:42 AM CAN FILLING ROOM SWEEPER 09/22/2024 8:42 AM CAN FILLING ROOM SWEEPER Flo Villagran MD LAB POCT ORDERABLES - DEVICE Final Result Performing Organization Address [facility] Co de Phone Number [facility] [address] [facility] [place] [address] * POCT glucose (09/22/2024 4:05 AM CAN FILLING ROOM SWEEPER) Glucose, POC 199 70 - 199 mg/dL Comment: For Glucose values <35 mg/dl when Hematocrit is >60 mg/dl,the test may not accurately detect significant hypoglycemia,and testing in the Laboratory should be considered if clinically indicated. Blood 09/22/2024 4:05 AM CAN FILLING ROOM SWEEPER 09/22/2024 4:05 AM CAN FILLING ROOM SWEEPER Flo Villagran MD LAB POCT ORDERABLES - DEVICE Final Result [facility] [address] Department [place] [address] * XR Chest 1 View (09/22/2024 3:59 AM CAN FILLING ROOM SWEEPER) Anatomical Region Laterality Modality Body, Chest N/A Computed Radiogr aphy 09/22/2024 9:18 AM CAN FILLING ROOM SWEEPER Impressions 09/22/2024 9:18 AM CAN FILLING ROOM SWEEPER The current study is compared with the prior radiograph dated 09/21/2024 An endotracheal tube is approximately 2 centimeters above the jessenia. Gastric tube course below the diaphragm looping in the distal stomach. A right upper extremity peripheral venous catheter tip overlies the axilla. Patchy airspace opacities throughout the left mid-lower lung are similar to most recent exam given differences in technique, decreased from more remote priors and may represent evolving pneumonia/aspiration changes. No pleural effusion. No pneumothorax. The cardiomediastinal silhouette is unchanged. . Electronically signed by: Blair Lopez M.D. Narrative 09/22/2024 9:18 AM CAN FILLING ROOM SWEEPER EXAMINATION: XR CHEST 1 VIEW Procedure Note Blair Lopez MD - 09/22/2024 EXAMINATION: XR CHEST 1 VIEW IMPRESSION: The current study is compared with the prior radiograph dated 09/21/2024 An endotracheal tube is approximately 2 centimeters above the jessenia. Gastric tube course below the diaphragm looping in the distal stomach. A right upper extremity peripheral venous catheter tip overlies the axilla. Patchy airspace opacities throughout the left mid-lower lung are similar to most recent exam given differences in technique, decreased from more remote priors and may represent evolving pneumonia/aspiration changes. No pleural effusion. No pneumothorax. The cardiomediastinal silhouette is unchanged. . Electronically signed by: Blair Lopez M.D. us Flo Villagran MD IMG XR PROCEDURES Final Resu lt * (ABNORMAL) eGFR (09/22/2024 2:24 AM CAN FILLING ROOM SWEEPER) eGFR 53(L) >=60 mL/min/1. 73 m2 Comment: Interpretive Data Reference Interval Normal >/= 90 mL/min/1.73m2 Mildly decreased* 60 - 89 mL/min/1.73m2 Mildly to moderately decreased 45 - 59 mL/min/1.73m2 Moderately to severely decreased 30 - 44 mL/min/1.73m2 Severely decreased 15 - 29 mL/min/1.73m2 Kidney Failure < 15 mL/min/1.73m2 *Relative to young adult level Estimated glomerular [...] interpretive data was last reviewed 2021. Blood 09/22/2024 2:24 AM CAN FILLING ROOM SWEEPER 09/22/2024 2:55 AM CAN FILLING ROOM SWEEPER Flo Villagran MD LAB BLOOD ORDERABLES Final R esult [facility] [address] Department [place] [address] * (ABNORMAL) CBC without differential (09/22/2024 2:24 AM CAN FILLING ROOM SWEEPER) Pathologist [facility] WBC 15.1(H) 3.8 - 9.9 K/cumm Hgb 7.5(L) 11.9 - 15.5 g/dL [facility] Hct 23.4(L) 35.6 - 45.5 % [facility] Plt 248 150 - 400 K/cumm [facility] MPV 12.5(H) 9.1 - 12.3 fL [facility] RBC 2.55(L) 3.90 - 5.20 M/cumm [facility] MCV 91.8 81.3 - 96.4 fL [facility] MCH 29.4 27.1 - 33.3 pg [facility] MCHC 32.1(L) 32.3 - 35.7 g/dL [facility] RDW CV 15.2(H) 11.1 - 14.9 % [facility] RDW SD 50.1(H) 35.7 - 48.1 fL [facility] NRBC abs 0.00 0.00 - 0.01 K/cumm [facility] Blood 09/22/2024 2:24 AM CAN FILLING ROOM SWEEPER 09/22/2024 2:40 AM CAN FILLING ROOM SWEEPER Flo Villagran MD LAB BLOOD ORDERABLES Final R esult Performing Organization Address [facility] Co de Phone Number [facility] [address] [place], [place] [phone] * Magnesium (09/22/2024 2:24 AM CAN FILLING ROOM SWEEPER) [facility] Magnesium 2.0 1.4 - 2.5 mg/dL Blood 09/22/2024 2:24 AM CAN FILLING ROOM SWEEPER 09/22/2024 2:55 AM CAN FILLING ROOM SWEEPER Flo Villagran MD LAB BLOOD ORDERABLES Final R esult Performing Organization Address [facility] Co de Phone Number [facility] [address] [place] [address] * (ABNORMAL) Renal function panel (09/22/2024 2:24 AM CAN FILLING ROOM SWEEPER) Pathologist [facility] Sodium 140 135 - 145 mmol/L Potassium, pl 3.4 3.3 - 4.9 mmol/L [facility] Chloride 108 97 - 110 mmol/L [facility] CO2 20(L) 22 - 32 mmol/L [facility] Anion gap 12 2 - 15 mmol/L [facility] BUN 31(H) 6 - 25 mg/dL [facility] Creatinine 1.25(H) 0.60 - 1.10 mg/dL [facility] Glucose 189 70 - 199 mg/dL [facility] Comment: Interpretive Data Fasting glucose >/= 126 mg/dl is diagnostic for diabetes. Fasting is defined as no caloric intake for at least 8 hours. Fasting glucose between 100 mg/dl to 125 mg/dl is diagnostic of prediabetes. In a patient with classic symptoms of hyperglycemia or hyperglycemic crisis, a random glucose >/= 200 mg/dl is diagnostic for diabetes. In the absence of unequivocal hyperglycemia, results should be confirmed by repeat testing. The classification and Diagnosis of Diabetes Diabetes Care 2021; 46: S19-S40. Current interpretive data was last revised 2022. Calcium 7.5(L) 8.5 - 10.3 mg/dL [facility] Phosphorus, pl 3.6 2.3 - 4.5 mg/dL [facility] Albumin 2.1(L) 3.5 - 5.0 g/dL [facility] Blood 09/22/2024 2:24 AM CAN FILLING ROOM SWEEPER 09/22/2024 2:55 AM CAN FILLING ROOM SWEEPER Flo Villagran MD LAB BLOOD ORDERABLES Final R esult [facility] [address] Department [place] [address] * POCT glucose (09/21/2024 11:58 PM CAN FILLING ROOM SWEEPER) [facility] Signature Glucose, POC 177 70 - 199 mg/dL Comment: For Glucose values <35 mg/dl when Hematocrit is >60 mg/dl,the test may not accurately detect significant hypoglycemia,and testing in the Laboratory should be considered if clinically indicated. Blood 09/21/2024 11:5 8 PM CAN FILLING ROOM SWEEPER 09/21/2024 11:58 PM CAN FILLING ROOM SWEEPER Flo Villagran MD LAB POCT ORDERABLES - DEVICE Final Result [facility] [address] [facility] [place] [address] * POCT glucose (09/21/2024 7:01 PM CAN FILLING ROOM SWEEPER) Glucose, POC 134 70 - 199 mg/dL Comment: For Glucose values <35 mg/dl when Hematocrit is >60 mg/dl,the test may not accurately detect significant hypoglycemia,and testing in the Laboratory should be considered if clinically indicated. Blood 09/21/2024 7:01 PM CAN FILLING ROOM SWEEPER 09/21/2024 7:01 PM CAN FILLING ROOM SWEEPER Flo Villagran MD LAB POCT ORDERABLES - DEVICE Final Result Performing Organization Address [facility] de Phone Number [facility] [address] [place] [address] * POCT glucose (09/21/2024 3:10 PM CAN FILLING ROOM SWEEPER) Glucose, POC 140 70 - 199 mg/dL Comment: For Glucose values <35 mg/dl when Hematocrit is >60 mg/dl,the test may not accurately detect significant hypoglycemia,and testing in the Laboratory should be considered if clinically indicated. Blood 09/21/2024 3:10 PM CAN FILLING ROOM SWEEPER 09/21/2024 3:10 PM CAN FILLING ROOM SWEEPER Flo Villagran MD LAB POCT ORDERABLES - DEVICE Final Result Performing Organization Address [facility] de Phone Number [facility] [address] [place] [address] * Potassium (09/21/2024 2:07 PM CAN FILLING ROOM SWEEPER) Potassium, pl 3.9 3.3 - 4.9 mmol/L Blood 09/21/2024 2:07 PM CAN FILLING ROOM SWEEPER 09/21/2024 2:07 PM CAN FILLING ROOM SWEEPER Flo Villagran MD LAB BLOOD ORDERABLES Final R esult Performing Organization Address [facility] Co de Phone Number [facility] [address] [facility] [employer], [place] [phone] * (ABNORMAL) POCT glucose (09/21/2024 11:30 AM CAN FILLING ROOM SWEEPER) Glucose, POC 200(H) 70 - 199 mg/dL Comment: For Glucose values <35 mg/dl when Hematocrit is >60 mg/dl,the test may not accurately detect significant hypoglycemia,and testing in the Laboratory should be considered if clinically indicated. Blood 09/21/2024 11:3 0 AM CAN FILLING ROOM SWEEPER 09/21/2024 11:30 AM CAN FILLING ROOM SWEEPER Flo Villagran MD LAB POCT ORDERABLES - DEVICE Final Result Performing Organization Address [facility] de Phone Number [facility] [address] [facility] [place] [address] * (ABNORMAL) POCT glucose (09/21/2024 7:19 AM CAN FILLING ROOM SWEEPER) Glucose, POC 230(H) 70 - 199 mg/dL Comment: For Glucose values <35 mg/dl when Hematocrit is >60 mg/dl,the test may not accurately detect significant hypoglycemia,and testing in the Laboratory should be considered if clinically indicated. Blood 09/21/2024 7:19 AM CAN FILLING ROOM SWEEPER 09/21/2024 7:19 AM CAN FILLING ROOM SWEEPER Flo Villagran MD LAB POCT ORDERABLES - DEVICE Final Result Performing Organization Address [facility] Co de Phone Number [facility] [address] [facility] [place], [place] [phone] * XR Chest 1 View (09/21/2024 4:44 AM CAN FILLING ROOM SWEEPER) Anatomical Region Laterality Modality Body, Chest N/A Computed Radiogr aphy 09/21/2024 7:37 AM CAN FILLING ROOM SWEEPER Impressions 09/21/2024 7:37 AM CAN FILLING ROOM SWEEPER Comparison is made to 2024. Endotracheal tube 2.7 cm above the jessenia. Nasogastric tube tip located with diaphragm, not included [id number]. There is slightly improved aeration within the left retrocardiac location likely representing improving aspiration/pneumonia. There is mild right basilar atelectasis. No pleural effusion or pneumothorax. Stable heart size. Electronically signed by: Ruiz Coles M.D. Narrative 09/21/2024 7:37 AM CAN FILLING ROOM SWEEPER Examination: Chest 1 view Procedure Note Ruiz Coles MD - 09/21/2024 Examination: Chest 1 view IMPRESSION: Comparison is made to 2024. Endotracheal tube 2.7 cm above the jessenia. Nasogastric tube tip located with diaphragm, not included [id number]. There is slightly improved aeration within the left retrocardiac location likely representing improving aspiration/pneumonia. There is mild right basilar atelectasis. No pleural effusion or pneumothorax. Stable heart size. Electronically signed by: Ruiz Coles M.D. Flo Villagran MD IMG XR PROCEDURES Final Resu lt * (ABNORMAL) POCT glucose (09/21/2024 3:47 AM CAN FILLING ROOM SWEEPER) [facility] Glucose, POC 235(H) 70 - 199 mg/dL Comment: For Glucose values <35 mg/dl when Hematocrit is >60 mg/dl,the test may not accurately detect significant hypoglycemia,and testing in the Laboratory should be considered if clinically indicated. Blood 09/21/2024 3:47 AM CAN FILLING ROOM SWEEPER 09/21/2024 3:47 AM CAN FILLING ROOM SWEEPER Flo Villagran MD LAB POCT ORDERABLES - DEVICE Final Result [facility] [address] Department of Laboratories [place], [place] [phone] * (ABNORMAL) eGFR (09/21/2024 1:48 AM CAN FILLING ROOM SWEEPER) eGFR 50(L) >=60 mL/min/1. 73 m2 Comment: Interpretive Data Reference Interval Normal >/= 90 mL/min/1.73m2 Mildly decreased* 60 - 89 mL/min/1.73m2 Mildly to moderately decreased 45 - 59 mL/min/1.73m2 Moderately to severely decreased 30 - 44 mL/min/1.73m2 Severely decreased 15 - 29 mL/min/1.73m2 Kidney Failure < 15 mL/min/1.73m2 *Relative to young adult level Estimated glomerular [...] interpretive data was last reviewed 2021. Blood 09/21/2024 1:48 AM CAN FILLING ROOM SWEEPER 09/21/2024 2:06 AM CAN FILLING ROOM SWEEPER us Flo Villagran MD LAB BLOOD ORDERABLES Final R esult [facility] [address] Department [place] [address] * (ABNORMAL) CBC without differential (09/21/2024 1:48 AM CAN FILLING ROOM SWEEPER) WBC 13.1(H) 3.8 - 9.9 K/cumm Hgb 7.6(L) 11.9 - 15.5 g/dL [facility] Hct 24.6(L) 35.6 - 45.5 % [facility] Plt 229 150 - 400 K/cumm [facility] MPV 12.5(H) 9.1 - 12.3 fL [facility] RBC 2.65(L) 3.90 - 5.20 M/cumm [facility] MCV 92.8 81.3 - 96.4 fL [facility] MCH 28.7 27.1 - 33.3 pg [facility] MCHC 30.9(L) 32.3 - 35.7 g/dL [facility] RDW CV 15.5(H) 11.1 - 14.9 % [facility] RDW SD 51.8(H) 35.7 - 48.1 fL [facility] NRBC abs 0.00 0.00 - 0.01 K/cumm [facility] Blood 09/21/2024 1:48 AM CAN FILLING ROOM SWEEPER 09/21/2024 2:06 AM CAN FILLING ROOM SWEEPER Flo Villagran MD LAB BLOOD ORDERABLES Final R esult Performing Organization Address [facility] Co de Phone Number [facility] [address] [facility] [place] [address] * Phosphorus (09/21/2024 1:48 AM CAN FILLING ROOM SWEEPER) Phosphorus, pl 3.2 2.3 - 4.5 mg/dL Blood 09/21/2024 1:48 AM CAN FILLING ROOM SWEEPER 09/21/2024 2:06 AM CAN FILLING ROOM SWEEPER Flo Villagran MD LAB BLOOD ORDERABLES Final R esult Performing Organization Address [facility] Co de Phone Number [facility] [address] [employer] [place], [place] [phone] * Magnesium (09/21/2024 1:48 AM CAN FILLING ROOM SWEEPER) Magnesium 2.0 1.4 - 2.5 mg/dL Blood 09/21/2024 1:48 AM CAN FILLING ROOM SWEEPER 09/21/2024 2:06 AM CAN FILLING ROOM SWEEPER Flo Villagran MD LAB BLOOD ORDERABLES Final R esult Performing Organization Address [facility] Co de Phone Number [facility] [address] [facility] [place], [place] [phone] * Bilirubin, direct (09/21/2024 1:48 AM CAN FILLING ROOM SWEEPER) Bilirubin, direct <0.2 0.1 - 0.3 mg/dL Blood 09/21/2024 1:48 AM CAN FILLING ROOM SWEEPER 09/21/2024 2:06 AM CAN FILLING ROOM SWEEPER Flo Villagran MD LAB BLOOD ORDERABLES Final R esult [facility] [address] Department [place] [address] * (ABNORMAL) Comprehensive metabolic panel (09/21/2024 1:48 AM CAN FILLING ROOM SWEEPER) Sodium 144 135 - 145 mmol/L Potassium, pl 2.9(L) 3.3 - 4.9 mmol/L [facility] Chloride 112(H) 97 - 110 mmol/L [facility] CO2 19(L) 22 - 32 mmol/L [facility] Anion gap 13 2 - 15 mmol/L [facility] BUN 32(H) 6 - 25 mg/dL [facility] Creatinine 1.31(H) 0.60 - 1.10 mg/dL [facility] Glucose 259(H) 70 - 199 mg/dL [facility] Comment: Interpretive Data Fasting glucose >/= 126 mg/dl is diagnostic for diabetes. Fasting is defined as no caloric intake for at least 8 hours. Fasting glucose between 100 mg/dl to 125 mg/dl is diagnostic of prediabetes. In a patient with classic symptoms of hyperglycemia or hyperglycemic crisis, a random glucose >/= 200 mg/dl is diagnostic for diabetes. In the absence of unequivocal hyperglycemia, results should be confirmed by repeat testing. The classification and Diagnosis of Diabetes Diabetes Care 2021; 46: S19-S40. Current interpretive data was last revised 2022. Calcium 7.4(L) 8.5 - 10.3 mg/dL [facility] Bilirubin, total 0.2 0.1 - 1.2 mg/dL [facility] Protein, pl 5.6(L) 6.5 - 8.5 g/dL [facility] Albumin 2.0(L) 3.5 - 5.0 g/dL [facility] Alk phos 135(H) 40 - 130 Units/L [facility] ALT 16 7 - 45 Units/L [facility] AST 23 10 - 45 Units/L [facility] Blood 09/21/2024 1:48 AM CAN FILLING ROOM SWEEPER 09/21/2024 2:06 AM CAN FILLING ROOM SWEEPER Flo Villagran MD LAB BLOOD ORDERABLES Final R esult Performing Organization Address [facility] Co de Phone Number [facility] [address] [facility] [place] [address] * (ABNORMAL) POCT glucose (09/20/2024 11:54 PM CAN FILLING ROOM SWEEPER) Glucose, POC 264(H) 70 - 199 mg/dL Comment: For Glucose values <35 mg/dl when Hematocrit is >60 mg/dl,the test may not accurately detect significant hypoglycemia,and testing in the Laboratory should be considered if clinically indicated. Blood 09/20/2024 11:5 4 PM CAN FILLING ROOM SWEEPER 09/20/2024 11:54 PM CAN FILLING ROOM SWEEPER Flo Villagran MD LAB POCT ORDERABLES - DEVICE Final Result Performing Organization Address [facility] de Phone Number [facility] [address] [facility] [place] [address] * (ABNORMAL) POCT glucose (09/20/2024 7:03 PM CAN FILLING ROOM SWEEPER) Glucose, POC 253(H) 70 - 199 mg/dL Comment: For Glucose values <35 mg/dl when Hematocrit is >60 mg/dl,the test may not accurately detect significant hypoglycemia,and testing in the Laboratory should be considered if clinically indicated. Blood 09/20/2024 7:03 PM CAN FILLING ROOM SWEEPER 09/20/2024 7:03 PM CAN FILLING ROOM SWEEPER Flo Villagran MD LAB POCT ORDERABLES - DEVICE Final Result Performing Organization Address [facility] Co de Phone Number [facility] [address] [facility] [place] [address] * POCT glucose (09/20/2024 3:28 PM CAN FILLING ROOM SWEEPER) Glucose, POC 179 70 - 199 mg/dL Comment: For Glucose values <35 mg/dl when Hematocrit is >60 mg/dl,the test may not accurately detect significant hypoglycemia,and testing in the Laboratory should be considered if clinically indicated. Blood 09/20/2024 3:28 PM CAN FILLING ROOM SWEEPER 09/20/2024 3:28 PM CAN FILLING ROOM SWEEPER Flo Villagran MD LAB POCT ORDERABLES - DEVICE Final Result Performing Organization Address [facility] Co de Phone Number [facility] [address] [place] [address] * (ABNORMAL) POCT glucose (09/20/2024 11:48 AM CAN FILLING ROOM SWEEPER) Glucose, POC 213(H) 70 - 199 mg/dL Comment: For Glucose values <35 mg/dl when Hematocrit is >60 mg/dl,the test may not accurately detect significant hypoglycemia,and testing in the Laboratory should be considered if clinically indicated. Blood 09/20/2024 11:4 8 AM CAN FILLING ROOM SWEEPER 09/20/2024 11:48 AM CAN FILLING ROOM SWEEPER Flo Villagran MD LAB POCT ORDERABLES - DEVICE Final Result Performing Organization Address [facility] de Phone Number [facility] [address] [place] [address] * (ABNORMAL) Blood gas, arterial (09/20/2024 10:54 AM CAN FILLING ROOM SWEEPER) pH, Art 7.43 7.35 - 7.45 PCO2, Arterial 30(L) 35 - 45 mmHg [facility] PO2, Arterial 82(L) 83 - 108 mmHg [facility] HCO3 Art (Calculated) 20 20 - 30 mmol/L [facility] BE, art -3 mmol/L [facility] Comment: Interpretive Data No Reference Range Established Current Interpretive Data was last revised on 2017 O2 Sat Art (Calculated) 96 94 - 98 % [facility] Blood 09/20/2024 10:5 4 AM CAN FILLING ROOM SWEEPER 09/20/2024 10:57 AM CAN FILLING ROOM SWEEPER us Flo Villagran MD LAB BLOOD ORDERABLES Final R esult [facility] [address] Department [place] [address] * XR Chest 1 View (09/20/2024 9:17 AM CAN FILLING ROOM SWEEPER) Anatomical Region Laterality Modality Body, Chest N/A Computed Radiogr aphy 09/20/2024 10:0 9 AM CAN FILLING ROOM SWEEPER Impressions 09/20/2024 10:09 AM CAN FILLING ROOM SWEEPER Comparison to 09/17/2024. An endotracheal tube terminates approximately 2.5 cm above the jessenia. Endogastric tube coils in the peripyloric region. Bilateral airspace opacities, left greater than right, with mid to lower lung zone predominance has slightly improved. No pleural effusion or pneumothorax. Unchanged heart size. The Electronically signed by: Gibran Astudillo M.D. Narrative 09/20/2024 10:09 AM CAN FILLING ROOM SWEEPER EXAMINATION: 1 view chest radiograph Procedure Note Gibran Astudillo MD - 09/20/2024 EXAMINATION: 1 view chest radiograph IMPRESSION: Comparison to 09/17/2024. An endotracheal tube terminates approximately 2.5 cm above the jessenia. Endogastric tube coils in the peripyloric region. Bilateral airspace opacities, left greater than right, with mid to lower lung zone predominance has slightly improved. No pleural effusion or pneumothorax. Unchanged heart size. The Electronically signed by: Gibran Astudillo M.D. us Flo Villagran MD IMG XR PROCEDURES Final Resu lt * POCT glucose (09/20/2024 7:20 AM CAN FILLING ROOM SWEEPER) Glucose, POC 159 70 - 199 mg/dL Comment: For Glucose values <35 mg/dl when Hematocrit is >60 mg/dl,the test may not accurately detect significant hypoglycemia,and testing in the Laboratory should be considered if clinically indicated. Blood 09/20/2024 7:20 AM CAN FILLING ROOM SWEEPER 09/20/2024 7:20 AM CAN FILLING ROOM SWEEPER Flo Villagran MD LAB POCT ORDERABLES - DEVICE Final Result Performing Organization Address [facility] Co de Phone Number [facility] [address] Department of Laboratories [place], [place] [phone] * POCT glucose (09/20/2024 3:37 AM CAN FILLING ROOM SWEEPER) Pathologist [facility] Glucose, POC 195 70 - 199 mg/dL Comment: For Glucose values <35 mg/dl when Hematocrit is >60 mg/dl,the test may not accurately detect significant hypoglycemia,and testing in the Laboratory should be considered if clinically indicated. Blood 09/20/2024 3:37 AM CAN FILLING ROOM SWEEPER 09/20/2024 3:37 AM CAN FILLING ROOM SWEEPER Flo Villagran MD LAB POCT ORDERABLES - DEVICE Final Result Performing Organization Address [facility] Co de Phone Number [facility] [address] Department of [employer] [place], [place] [phone] * (ABNORMAL) eGFR (09/20/2024 12:27 AM CAN FILLING ROOM SWEEPER) [facility] eGFR 43(L) >=60 mL/min/1. 73 m2 Comment: Interpretive Data Reference Interval Normal >/= 90 mL/min/1.73m2 Mildly decreased* 60 - 89 mL/min/1.73m2 Mildly to moderately decreased 45 - 59 mL/min/1.73m2 Moderately to severely decreased 30 - 44 mL/min/1.73m2 Severely decreased 15 - 29 mL/min/1.73m2 Kidney Failure < 15 mL/min/1.73m2 *Relative to young adult level Estimated glomerular [...] interpretive data was last reviewed 2021. Blood 09/20/2024 12:2 7 AM CAN FILLING ROOM SWEEPER 09/20/2024 12:27 AM CAN FILLING ROOM SWEEPER us Elida Vigil DO LAB BLOOD ORDERABLES F inal Result [facility] [address] Department of Laboratories [place], [place] [phone] * (ABNORMAL) Differential, auto (09/20/2024 12:27 AM CAN FILLING ROOM SWEEPER) Neutrophil abs 8.9(H) 1.5 - 6.5 K/cumm Imm gran abs 0.5(H) 0.0 - 0.1 K/cumm [facility] Lymphocyte abs 0.9 0.8 - 3.3 K/cumm [facility] Monocyte abs 0.7 0.2 - 0.8 K/cumm [facility] Eosinophil abs 0.2 0.0 - 0.5 K/cumm [facility] Basophil abs 0.0 0.0 - 0.1 K/cumm [facility] Neutrophil pct 79.8 % [facility] Comment: Interpretive Data Percent cell count reference ranges are not reported, since discordance with absolute values may lead to misinterpretation of CBC data. Current Interpretive Data was last revised on 2017. Imm gran pct 4.5 % [facility] Comment: Interpretive Data Percent cell count reference ranges are not reported, since discordance with absolute values may lead to misinterpretation of CBC data. Current Interpretive Data was last revised on 2017. Lymphocyte pct 7.8 % [facility] Comment: Interpretive Data Percent cell count reference ranges are not reported, since discordance with absolute values may lead to misinterpretation of CBC data. Current Interpretive Data was last revised on 2017. Monocyte pct 6.3 % [facility] Comment: Interpretive Data Percent cell count reference ranges are not reported, since discordance with absolute values may lead to misinterpretation of CBC data. Current Interpretive Data was last revised on 2017. Eosinophil pct 1.4 % [facility] Comment: Interpretive Data Percent cell count reference ranges are not reported, since discordance with absolute values may lead to misinterpretation of CBC data. Current Interpretive Data was last revised on 2017. Basophil pct 0.2 % [facility] Comment: Interpretive Data Percent cell count reference ranges are not reported, since discordance with absolute values may lead to misinterpretation of CBC data. Current Interpretive Data was last revised on 2017. Blood 09/20/2024 12:2 7 AM CAN FILLING ROOM SWEEPER 09/20/2024 12:27 AM CAN FILLING ROOM SWEEPER us Elida Vigil DO LAB BLOOD ORDERABLES F inal Result [facility] [address] Department [place] [address] * (ABNORMAL) CBC with auto differential (09/20/2024 12:27 AM CAN FILLING ROOM SWEEPER) WBC 11.2(H) 3.8 - 9.9 K/cumm Hgb 7.6(L) 11.9 - 15.5 g/dL [facility] Hct 24.5(L) 35.6 - 45.5 % [facility] Plt 190 150 - 400 K/cumm [facility] MPV 13.0(H) 9.1 - 12.3 fL [facility] RBC 2.67(L) 3.90 - 5.20 M/cumm [facility] MCV 91.8 81.3 - 96.4 fL [facility] MCH 28.5 27.1 - 33.3 pg [facility] MCHC 31.0(L) 32.3 - 35.7 g/dL [facility] RDW CV 15.2(H) 11.1 - 14.9 % [facility] RDW SD 50.5(H) 35.7 - 48.1 fL [facility] NRBC abs 0.00 0.00 - 0.01 K/cumm [facility] Blood 09/20/2024 12:2 7 AM CAN FILLING ROOM SWEEPER 09/20/2024 12:27 AM CAN FILLING ROOM SWEEPER us Elida Schumacher [place] DO LAB BLOOD ORDERABLES F inal Result [facility] [address] Department [place] [address] * (ABNORMAL) Comprehensive metabolic panel (09/20/2024 12:27 AM CAN FILLING ROOM SWEEPER) Sodium 147(H) 135 - 145 mmol/L Potassium, pl 3.3 3.3 - 4.9 mmol/L [facility] Chloride 117(H) 97 - 110 mmol/L [facility] CO2 18(L) 22 - 32 mmol/L [facility] Anion gap 12 2 - 15 mmol/L [facility] BUN 40(H) 6 - 25 mg/dL [facility] Creatinine 1.48(H) 0.60 - 1.10 mg/dL [facility] Glucose 221(H) 70 - 199 mg/dL [facility] Comment: Interpretive Data Fasting glucose >/= 126 mg/dl is diagnostic for diabetes. Fasting is defined as no caloric intake for at least 8 hours. Fasting glucose between 100 mg/dl to 125 mg/dl is diagnostic of prediabetes. In a patient with classic symptoms of hyperglycemia or hyperglycemic crisis, a random glucose >/= 200 mg/dl is diagnostic for diabetes. In the absence of unequivocal hyperglycemia, results should be confirmed by repeat testing. The classification and Diagnosis of Diabetes Diabetes Care 202; 46: S19-S40. Current interpretive data was last revised 2022. Calcium 7.5(L) 8.5 - 10.3 mg/dL [facility] Bilirubin, total 0.2 0.1 - 1.2 mg/dL [facility] Protein, pl 5.6(L) 6.5 - 8.5 g/dL [facility] Albumin 2.1(L) 3.5 - 5.0 g/dL [facility] Alk phos 134(H) 40 - 130 Units/L [facility] ALT 14 7 - 45 Units/L [facility] AST 27 10 - 45 Units/L [facility] Blood 09/20/2024 12:2 7 AM CAN FILLING ROOM SWEEPER 09/20/2024 12:27 AM CAN FILLING ROOM SWEEPER Elida Gusmanricjuvenal Vigil DO LAB BLOOD ORDERABLES F inal Result Performing Organization Address [facility] Co de Phone Number [facility] [address] [facility] [place] [address] * (ABNORMAL) POCT glucose (09/19/2024 11:00 PM CAN FILLING ROOM SWEEPER) Glucose, POC 217(H) 70 - 199 mg/dL Comment: For Glucose values <35 mg/dl when Hematocrit is >60 mg/dl,the test may not accurately detect significant hypoglycemia,and testing in the Laboratory should be considered if clinically indicated. Blood 09/19/2024 11:0 0 PM CAN FILLING ROOM SWEEPER 09/19/2024 11:00 PM CAN FILLING ROOM SWEEPER Flo Villagran MD LAB POCT ORDERABLES - DEVICE Final Result Performing Organization Address [facility] de Phone Number [facility] [address] [facility] [place] [address] * POCT glucose (09/19/2024 7:52 PM CAN FILLING ROOM SWEEPER) Glucose, POC 196 70 - 199 mg/dL Comment: For Glucose values <35 mg/dl when Hematocrit is >60 mg/dl,the test may not accurately detect significant hypoglycemia,and testing in the Laboratory should be considered if clinically indicated. Blood 09/19/2024 7:52 PM CAN FILLING ROOM SWEEPER 09/19/2024 7:52 PM CAN FILLING ROOM SWEEPER Flo Villagran MD LAB POCT ORDERABLES - DEVICE Final Result Performing Organization Address [facility] Co de Phone Number [facility] [address] Department [place] [address] * POCT glucose (09/19/2024 4:55 PM CAN FILLING ROOM SWEEPER) Glucose, POC 179 70 - 199 mg/dL Comment: For Glucose values <35 mg/dl when Hematocrit is >60 mg/dl,the test may not accurately detect significant hypoglycemia,and testing in the Laboratory should be considered if clinically indicated. Blood 09/19/2024 4:55 PM CAN FILLING ROOM SWEEPER 09/19/2024 4:55 PM CAN FILLING ROOM SWEEPER Flo Villagran MD LAB POCT ORDERABLES - DEVICE Final Result Performing Organization Address [facility] de Phone Number [facility] [address] [place] [address] * (ABNORMAL) POCT glucose (09/19/2024 12:31 PM CAN FILLING ROOM SWEEPER) Glucose, POC 260(H) 70 - 199 mg/dL Comment: For Glucose values <35 mg/dl when Hematocrit is >60 mg/dl,the test may not accurately detect significant hypoglycemia,and testing in the Laboratory should be considered if clinically indicated. Blood 09/19/2024 12:3 1 PM CAN FILLING ROOM SWEEPER 09/19/2024 12:31 PM CAN FILLING ROOM SWEEPER Flo Villagran MD LAB POCT ORDERABLES - DEVICE Final Result Performing Organization Address [facility] de Phone Number [facility] [address] [place] [address] * Potassium (09/19/2024 10:04 AM CAN FILLING ROOM SWEEPER) Potassium, pl 3.4 3.3 - 4.9 mmol/L Blood 09/19/2024 10:0 4 AM CAN FILLING ROOM SWEEPER 09/19/2024 10:12 AM CAN FILLING ROOM SWEEPER Elida Vigil DO LAB BLOOD ORDERABLES F inal Result [facility] [address] [place] [address] * EEG (09/19/2024 8:50 AM CAN FILLING ROOM SWEEPER) Anatomical Region Laterality Modality EEG Narrative 09/19/2024 1:18 PM CAN FILLING ROOM SWEEPER REPORT OF ELECTROENCEPHALOGRAM DATE OF STUDY: 09/19/24 Brooke Marshall 1975 REASON FOR STUDY: Confusional state BRIEF HISTORY: Brooke Marshall is a 48 y.o. year old female currently in the ICU, still on ventilator. Admitted with DKA and influenza. Has been witnessed to have diminished mental status. DESCRIPTION: This is a routine 18-channel EEG. The underlying background rhythm consists of a [id number] voltage 5-7 Hz theta rhythm which remains symmetric throughout the examination. There is no sharp or spike activity seen. The record remains non-lateralizing and non-paroxysmal throughout. As the record progresses there is development of intermittent, diffuse, asynchronous theta and admixed delta activity consistent with drowsiness. No clear sleep activity is witnessed. Activation procedures including hyperventilation and photic stimulation were not able to be performed under the circumstances. No seizure activity is seen. Single lead ECG tracing throughout the recording remains in regular appearing 102-108 beats per minute consistent with sinus tachycardia. INTERPRETATION: This is an abnormal EEG due to generalized slowing of the background rhythm. This is a nonspecific finding seen in a variety of states including encephalopathy. No focal, lateralized, or epileptiform discharges are seen. Sara Talbot M.D. [facility] Office: us Nathaniel Calderon MD NEUROLOGY ORDERABLES Final Re sult * (ABNORMAL) POCT glucose (09/19/2024 7:53 AM CAN FILLING ROOM SWEEPER) Glucose, POC 214(H) 70 - 199 mg/dL Comment: For Glucose values <35 mg/dl when Hematocrit is >60 mg/dl,the test may not accurately detect significant hypoglycemia,and testing in the Laboratory should be considered if clinically indicated. Blood 09/19/2024 7:53 AM CAN FILLING ROOM SWEEPER 09/19/2024 7:53 AM CAN FILLING ROOM SWEEPER Elida Vigil [employer] LAB POCT ORDERABLES - DEVICE Final Result Performing Organization Address [facility] de Phone Number [facility] [address] [place] [address] * (ABNORMAL) POCT glucose (09/19/2024 3:58 AM CAN FILLING ROOM SWEEPER) Pathologist [facility] Glucose, POC 234(H) 70 - 199 mg/dL Comment: For Glucose values <35 mg/dl when Hematocrit is >60 mg/dl,the test may not accurately detect significant hypoglycemia,and testing in the Laboratory should be considered if clinically indicated. Blood 09/19/2024 3:58 AM CAN FILLING ROOM SWEEPER 09/19/2024 3:58 AM CAN FILLING ROOM SWEEPER Elida Vigil LAB POCT ORDERABLES - DEVICE Final Result Performing Organization Address [facility] de Phone Number [facility] [address] Department [place] [address] * (ABNORMAL) eGFR (09/19/2024 1:46 AM CAN FILLING ROOM SWEEPER) [facility] eGFR 36(L) >=60 mL/min/1. 73 m2 Comment: Interpretive Data Reference Interval Normal >/= 90 mL/min/1.73m2 Mildly decreased* 60 - 89 mL/min/1.73m2 Mildly to moderately decreased 45 - 59 mL/min/1.73m2 Moderately to severely decreased 30 - 44 mL/min/1.73m2 Severely decreased 15 - 29 mL/min/1.73m2 Kidney Failure < 15 mL/min/1.73m2 *Relative to young adult level Estimated glomerular [...] interpretive data was last reviewed 2021. Blood 09/19/2024 1:46 AM CAN FILLING ROOM SWEEPER 09/19/2024 1:46 AM CAN FILLING ROOM SWEEPER us Elida Vigil DO LAB BLOOD ORDERABLES F inal Result [facility] [address] [place] [address] * (ABNORMAL) Differential, auto (09/19/2024 1:46 AM CAN FILLING ROOM SWEEPER) Neutrophil abs 6.7(H) 1.5 - 6.5 K/cumm Imm gran abs 0.5(H) 0.0 - 0.1 K/cumm [facility] Lymphocyte abs 0.7(L) 0.8 - 3.3 K/cumm [facility] Monocyte abs 1.1(H) 0.2 - 0.8 K/cumm [facility] Eosinophil abs 0.1 0.0 - 0.5 K/cumm [facility] Basophil abs 0.0 0.0 - 0.1 K/cumm [facility] Neutrophil pct 72.5 % [facility] Comment: Interpretive Data Percent cell count reference ranges are not reported, since discordance with absolute values may lead to misinterpretation of CBC data. Current Interpretive Data was last revised on 2017. Imm gran pct 5.8 % [facility] Comment: Interpretive Data Percent cell count reference ranges are not reported, since discordance with absolute values may lead to misinterpretation of CBC data. Current Interpretive Data was last revised on 2017. Lymphocyte pct 8.1 % [facility] Comment: Interpretive Data Percent cell count reference ranges are not reported, since discordance with absolute values may lead to misinterpretation of CBC data. Current Interpretive Data was last revised on 2017. Monocyte pct 12.3 % [facility] Comment: Interpretive Data Percent cell count reference ranges are not reported, since discordance with absolute values may lead to misinterpretation of CBC data. Current Interpretive Data was last revised on 2017. Eosinophil pct 1.2 % [facility] Comment: Interpretive Data Percent cell count reference ranges are not reported, since discordance with absolute values may lead to misinterpretation of CBC data. Current Interpretive Data was last revised on 2017. Basophil pct 0.1 % [facility] Comment: Interpretive Data Percent cell count reference ranges are not reported, since discordance with absolute values may lead to misinterpretation of CBC data. Current Interpretive Data was last revised on 2017. Blood 09/19/2024 1:46 AM CAN FILLING ROOM SWEEPER 09/19/2024 1:46 AM CAN FILLING ROOM SWEEPER us Elida Vigil DO LAB BLOOD ORDERABLES F inal Result [facility] [address] Department [place] [address] * (ABNORMAL) CBC with auto differential (09/19/2024 1:46 AM CAN FILLING ROOM SWEEPER) WBC 9.2 3.8 - 9.9 K/cumm Hgb 7.5(L) 11.9 - 15.5 g/dL [facility] Hct 23.7(L) 35.6 - 45.5 % [facility] Plt 150 150 - 400 K/cumm [facility] MPV 13.4(H) 9.1 - 12.3 fL [facility] RBC 2.61(L) 3.90 - 5.20 M/cumm [facility] MCV 90.8 81.3 - 96.4 fL [facility] MCH 28.7 27.1 - 33.3 pg [facility] MCHC 31.6(L) 32.3 - 35.7 g/dL [facility] RDW CV 14.9 11.1 - 14.9 % [facility] RDW SD 49.1(H) 35.7 - 48.1 fL [facility] NRBC abs 0.00 0.00 - 0.01 K/cumm [facility] Blood 09/19/2024 1:46 AM CAN FILLING ROOM SWEEPER 09/19/2024 1:46 AM CAN FILLING ROOM SWEEPER us Elida Winsome Barks DO LAB BLOOD ORDERABLES E dited Result - Final Performing Organization Address [facility] Co de Phone Number [facility] [address] [facility] [place] [address] * Manual Differential (09/19/2024 1:46 AM CAN FILLING ROOM SWEEPER) Differential Auto RBC morphology Normal [facility] Morphology scrn See Comment [facility] Comment:PLT: Platelet morpho logy normal Blood 09/19/2024 1:46 AM CAN FILLING ROOM SWEEPER 09/19/2024 1:46 AM CAN FILLING ROOM SWEEPER us Elida Winsome Barks DO LAB BLOOD ORDERABLES F inal Result Performing Organization Address [facility] de Phone Number [facility] [address] [place] [address] * Phosphorus (09/19/2024 1:46 AM CAN FILLING ROOM SWEEPER) Phosphorus, pl 3.0 2.3 - 4.5 mg/dL Blood 09/19/2024 1:46 AM CAN FILLING ROOM SWEEPER 09/19/2024 1:46 AM CAN FILLING ROOM SWEEPER us Elida Winsome Barks DO LAB BLOOD ORDERABLES F inal Result Performing Organization Address [facility] Co de Phone Number [facility] [address] [place] [address] * Magnesium (09/19/2024 1:46 AM CAN FILLING ROOM SWEEPER) Magnesium 2.3 1.4 - 2.5 mg/dL Blood 09/19/2024 1:46 AM CAN FILLING ROOM SWEEPER 09/19/2024 1:46 AM CAN FILLING ROOM SWEEPER us Elida Winsome Barks DO LAB BLOOD ORDERABLES F inal Result Performing Organization Address [facility] Co de Phone Number [facility] [address] [place] [address] * (ABNORMAL) Comprehensive metabolic panel (09/19/2024 1:46 AM CAN FILLING ROOM SWEEPER) Sodium 145 135 - 145 mmol/L Potassium, pl 2.6(C) 3.3 - 4.9 mmol/L [facility] Comment:Critical result call ed to and read back by Amber Gaines (RN) on 09/19/24 @ 0210 to [id number] Chloride 113(H) 97 - 110 mmol/L [facility] CO2 20(L) 22 - 32 mmol/L [facility] Anion gap 12 2 - 15 mmol/L [facility] BUN 41(H) 6 - 25 mg/dL [facility] Creatinine 1.73(H) 0.60 - 1.10 mg/dL [facility] Glucose 249(H) 70 - 199 mg/dL [facility] Comment: Interpretive Data Fasting glucose >/= 126 mg/dl is diagnostic for diabetes. Fasting is defined as no caloric intake for at least 8 hours. Fasting glucose between 100 mg/dl to 125 mg/dl is diagnostic of prediabetes. In a patient with classic symptoms of hyperglycemia or hyperglycemic crisis, a random glucose >/= 200 mg/dl is diagnostic for diabetes. In the absence of unequivocal hyperglycemia, results should be confirmed by repeat testing. The classification and Diagnosis of Diabetes Diabetes Care 202; 46: S19-S40. Current interpretive data was last revised 2022. Calcium 7.5(L) 8.5 - 10.3 mg/dL [facility] Bilirubin, total 0.3 0.1 - 1.2 mg/dL [facility] Protein, pl 5.6(L) 6.5 - 8.5 g/dL [facility] Albumin 2.0(L) 3.5 - 5.0 g/dL [facility] Alk phos 127 40 - 130 Units/L [facility] ALT 12 7 - 45 Units/L [facility] AST 24 10 - 45 Units/L [facility] Blood 09/19/2024 1:46 AM CAN FILLING ROOM SWEEPER 09/19/2024 1:46 AM CAN FILLING ROOM SWEEPER Elida Vigil LAB BLOOD ORDERABLES F inal Result Performing Organization Address [facility] de Phone Number [facility] [address] [facility] [place] [address] * Ammonia (09/19/2024 1:07 AM CAN FILLING ROOM SWEEPER) Ammonia 40 <=50 mcmol/L Blood 09/19/2024 1:07 AM CAN FILLING ROOM SWEEPER 09/19/2024 1:12 AM CAN FILLING ROOM SWEEPER Elida Vigil LAB BLOOD ORDERABLES F inal Result Performing Organization Address [facility] de Phone Number [facility] [address] [facility] [place] [address] * (ABNORMAL) POCT glucose (09/18/2024 11:58 PM CAN FILLING ROOM SWEEPER) Glucose, POC 231(H) 70 - 199 mg/dL Comment: For Glucose values <35 mg/dl when Hematocrit is >60 mg/dl,the test may not accurately detect significant hypoglycemia,and testing in the Laboratory should be considered if clinically indicated. Blood 09/18/2024 11:5 8 PM CAN FILLING ROOM SWEEPER 09/18/2024 11:58 PM CAN FILLING ROOM SWEEPER Elida Vigil LAB POCT ORDERABLES - DEVICE Final Result Performing Organization Address [facility] de Phone Number [facility] [address] [place] [address] * (ABNORMAL) POCT glucose (09/18/2024 9:10 PM CAN FILLING ROOM SWEEPER) Glucose, POC 261(H) 70 - 199 mg/dL Comment: For Glucose values <35 mg/dl when Hematocrit is >60 mg/dl,the test may not accurately detect significant hypoglycemia,and testing in the Laboratory should be considered if clinically indicated. Blood 09/18/2024 9:10 PM CAN FILLING ROOM SWEEPER 09/18/2024 9:10 PM CAN FILLING ROOM SWEEPER Elida Verahenok LAB POCT ORDERABLES - DEVICE Final Result Performing Organization Address [facility] Co de Phone Number [facility] [address] [place] [address] * (ABNORMAL) POCT glucose (09/18/2024 4:18 PM CAN FILLING ROOM SWEEPER) Glucose, POC 229(H) 70 - 199 mg/dL Comment: For Glucose values <35 mg/dl when Hematocrit is >60 mg/dl,the test may not accurately detect significant hypoglycemia,and testing in the Laboratory should be considered if clinically indicated. Blood 09/18/2024 4:18 PM CAN FILLING ROOM SWEEPER 09/18/2024 4:18 PM CAN FILLING ROOM SWEEPER Elida Winsome Musa [facility] POCT ORDERABLES - DEVICE Final Result Performing Organization Address [facility] de Phone Number [facility] [address] [facility] [place] [address] * (ABNORMAL) POCT glucose (09/18/2024 12:07 PM CAN FILLING ROOM SWEEPER) Glucose, POC 260(H) 70 - 199 mg/dL Comment: For Glucose values <35 mg/dl when Hematocrit is >60 mg/dl,the test may not accurately detect significant hypoglycemia,and testing in the Laboratory should be considered if clinically indicated. Blood 09/18/2024 12:0 7 PM CAN FILLING ROOM SWEEPER 09/18/2024 12:07 PM CAN FILLING ROOM SWEEPER Elida Verahenok LAB POCT ORDERABLES - DEVICE Final Result Performing Organization Address [facility] Co de Phone Number [facility] [address] [place] [address] * (ABNORMAL) DIC Platelet (09/18/2024 8:13 AM CAN FILLING ROOM SWEEPER) Plt 147(L) 150 - 400 K/cumm Blood 09/18/2024 8:13 AM CAN FILLING ROOM SWEEPER 09/18/2024 8:25 AM CAN FILLING ROOM SWEEPER us Elida Schumacher [place] DO LAB BLOOD ORDERABLES E dited Result - Final [facility] [address] [place] [address] * (ABNORMAL) Differential, auto (09/18/2024 8:13 AM CAN FILLING ROOM SWEEPER) Pathologist [facility] Neutrophil abs 7.0(H) 1.5 - 6.5 K/cumm Imm gran abs 0.6(H) 0.0 - 0.1 K/cumm [facility] Lymphocyte abs 0.7(L) 0.8 - 3.3 K/cumm [facility] Monocyte abs 1.4(H) 0.2 - 0.8 K/cumm [facility] Eosinophil abs 0.1 0.0 - 0.5 K/cumm [facility] Basophil abs 0.1 0.0 - 0.1 K/cumm [facility] Neutrophil pct 71.8 % [facility] Comment: Interpretive Data Percent cell count reference ranges are not reported, since discordance with absolute values may lead to misinterpretation of CBC data. Current Interpretive Data was last revised on 2017. Imm gran pct 6.0 % [facility] Comment: Interpretive Data Percent cell count reference ranges are not reported, since discordance with absolute values may lead to misinterpretation of CBC data. Current Interpretive Data was last revised on 2017. Lymphocyte pct 6.6 % [facility] Comment: Interpretive Data Percent cell count reference ranges are not reported, since discordance with absolute values may lead to misinterpretation of CBC data. Current Interpretive Data was last revised on 2017. Monocyte pct 14.1 % [facility] Comment: Interpretive Data Percent cell count reference ranges are not reported, since discordance with absolute values may lead to misinterpretation of CBC data. Current Interpretive Data was last revised on 2017. Eosinophil pct 0.9 % [facility] Comment: Interpretive Data Percent cell count reference ranges are not reported, since discordance with absolute values may lead to misinterpretation of CBC data. Current Interpretive Data was last revised on 2017. Basophil pct 0.6 % [facility] Comment: Interpretive Data Percent cell count reference ranges are not reported, since discordance with absolute values may lead to misinterpretation of CBC data. Current Interpretive Data was last revised on 2017. Blood 09/18/2024 8:13 AM CAN FILLING ROOM SWEEPER 09/18/2024 8:13 AM CAN FILLING ROOM SWEEPER [employer] DO LAB BLOOD ORDERABLES F inal Result Performing Organization Address [facility] Co de Phone Number [facility] [address] [place] [address] * DIC Schistocytes (09/18/2024 8:13 AM CAN FILLING ROOM SWEEPER) Pathologist [facility] Schistocytes None Seen None Seen Blood 09/18/2024 8:13 AM CAN FILLING ROOM SWEEPER 09/18/2024 8:25 AM CAN FILLING ROOM SWEEPER [employer] LAB BLOOD ORDERABLES F inal Result Performing Organization Address [facility] Co de Phone Number [facility] [address] [place] [address] * (ABNORMAL) CBC with auto differential (09/18/2024 8:13 AM CAN FILLING ROOM SWEEPER) Pathologist [facility] WBC 9.8 3.8 - 9.9 K/cumm Hgb 8.9(L) 11.9 - 15.5 g/dL [facility] Hct 28.7(L) 35.6 - 45.5 % [facility] Plt 147(L) 150 - 400 K/cumm [facility] MPV 13.2(H) 9.1 - 12.3 fL [facility] RBC 3.06(L) 3.90 - 5.20 M/cumm [facility] MCV 93.8 81.3 - 96.4 fL [facility] MCH 29.1 27.1 - 33.3 pg [facility] MCHC 31.0(L) 32.3 - 35.7 g/dL [facility] RDW CV 14.7 11.1 - 14.9 % [facility] RDW SD 50.8(H) 35.7 - 48.1 fL [facility] NRBC abs 0.03(H) 0.00 - 0.01 K/cumm [facility] Blood 09/18/2024 8:13 AM CAN FILLING ROOM SWEEPER 09/18/2024 8:20 AM CAN FILLING ROOM SWEEPER Elida Vigil DO LAB BLOOD ORDERABLES E dited Result - Final Performing Organization Address [facility]/ZIP Co de Phone Number [facility] [address] Department of [employer] [place], [place] [id number] * (ABNORMAL) POCT glucose (09/18/2024 7:57 AM CAN FILLING ROOM SWEEPER) Glucose, POC 271(H) 70 - 199 mg/dL Comment: For Glucose values <35 mg/dl when Hematocrit is >60 mg/dl,the test may not accurately detect significant hypoglycemia,and testing in the Laboratory should be considered if clinically indicated. Blood 09/18/2024 7:57 AM CAN FILLING ROOM SWEEPER 09/18/2024 7:57 AM CAN FILLING ROOM SWEEPER Elida Vigil DO LAB POCT ORDERABLES - DEVICE Final Result [facility] [address] Department [employer] [place], [place] [id number] * (ABNORMAL) POCT glucose (09/18/2024 7:56 AM CAN FILLING ROOM SWEEPER) Glucose, POC 240(H) 70 - 199 mg/dL Comment: For Glucose values <35 mg/dl when Hematocrit is >60 mg/dl,the test may not accurately detect significant hypoglycemia,and testing in the Laboratory should be considered if clinically indicated. Blood 09/18/2024 7:56 AM CAN FILLING ROOM SWEEPER 09/18/2024 7:56 AM CAN FILLING ROOM SWEEPER Elida Vigil DO LAB POCT ORDERABLES - DEVICE Final Result Performing Organization Address [facility]/ZIP Co de Phone Number [facility] [address] Department [employer] [place], [place] [id number] * (ABNORMAL) eGFR (09/18/2024 7:26 AM CAN FILLING ROOM SWEEPER) eGFR 40(L) >=60 mL/min/1. 73 m2 Comment: Interpretive Data Reference Interval Normal >/= 90 mL/min/1.73m2 Mildly decreased* 60 - 89 mL/min/1.73m2 Mildly to moderately decreased 45 - 59 mL/min/1.73m2 Moderately to severely decreased 30 - 44 mL/min/1.73m2 Severely decreased 15 - 29 mL/min/1.73m2 Kidney Failure < 15 mL/min/1.73m2 *Relative to young adult level Estimated glomerular [...] interpretive data was last reviewed 2021. Blood 09/18/2024 7:26 AM CAN FILLING ROOM SWEEPER 09/18/2024 7:47 AM CAN FILLING ROOM SWEEPER Elida Vigil DO LAB BLOOD ORDERABLES F inal Result Performing Organization Address City/[facility]/ZIP Co de Phone Number [facility] [address] Department of [employer] [place], [place] [id number] * Phosphorus (09/18/2024 7:26 AM CAN FILLING ROOM SWEEPER) Phosphorus, pl 2.9 2.3 - 4.5 mg/dL Comment:Reviewed - dialysis patient Blood 09/18/2024 7:26 AM CAN FILLING ROOM SWEEPER 09/18/2024 7:47 AM CAN FILLING ROOM SWEEPER Elida Vigil [employer] LAB BLOOD ORDERABLES F inal Result Performing Organization Address [facility] Co de Phone Number [facility] [address] [facility] [employer] [place], [place] [id number] * Magnesium (09/18/2024 7:26 AM CAN FILLING ROOM SWEEPER) [facility] Magnesium 2.3 1.4 - 2.5 mg/dL Blood 09/18/2024 7:26 AM CAN FILLING ROOM SWEEPER 09/18/2024 7:47 AM CAN FILLING ROOM SWEEPER Elida Verahenok LAB BLOOD ORDERABLES F inal Result Performing Organization Address [facility] Co de Phone Number [facility] [address] [place] [address] * Vitamin B12 (09/18/2024 7:26 AM CAN FILLING ROOM SWEEPER) [facility] Vitamin B12 878 230 - 1,250 pg/mL Blood 09/18/2024 7:26 AM CAN FILLING ROOM SWEEPER 09/18/2024 7:47 AM CAN FILLING ROOM SWEEPER Elida Vigil LAB BLOOD ORDERABLES F inal Result Performing Organization Address [facility] Co de Phone Number [facility] [address] [facility] [place] [address] * (ABNORMAL) Comprehensive metabolic panel (09/18/2024 7:26 AM CAN FILLING ROOM SWEEPER) [facility] Sodium 143 135 - 145 mmol/L Potassium, pl 3.4 3.3 - 4.9 mmol/L [facility] Comment:Hemolyzed; potassium value may be falsely elevated by as much as 0.3 - 0.5 mmol/L. Suggest redraw and reanalysis Chloride 111(H) 97 - 110 mmol/L [facility] CO2 19(L) 22 - 32 mmol/L [facility] Anion gap 13 2 - 15 mmol/L [facility] BUN 39(H) 6 - 25 mg/dL [facility] Creatinine 1.57(H) 0.60 - 1.10 mg/dL [facility] Glucose 227(H) 70 - 199 mg/dL [facility] Comment: Interpretive Data Fasting glucose >/= 126 mg/dl is diagnostic for diabetes. Fasting is defined as no caloric intake for at least 8 hours. Fasting glucose between 100 mg/dl to 125 mg/dl is diagnostic of prediabetes. In a patient with classic symptoms of hyperglycemia or hyperglycemic crisis, a random glucose >/= 200 mg/dl is diagnostic for diabetes. In the absence of unequivocal hyperglycemia, results should be confirmed by repeat testing. The classification and Diagnosis of Diabetes Diabetes Care 2021; 46: S19-S40. Current interpretive data was last revised 2022. Calcium 7.8(L) 8.5 - 10.3 mg/dL [facility] Bilirubin, total 0.4 0.1 - 1.2 mg/dL [facility] Protein, pl 5.9(L) 6.5 - 8.5 g/dL [facility] Albumin 2.2(L) 3.5 - 5.0 g/dL [facility] Alk phos 141(H) 40 - 130 Units/L [facility] ALT 18 7 - 45 Units/L [facility] AST 31 10 - 45 Units/L [facility] Comment:Slightly Hemolyzed S pecimen Blood 09/18/2024 7:26 AM CAN FILLING ROOM SWEEPER 09/18/2024 7:47 AM CAN FILLING ROOM SWEEPER us Elida Vigil DO LAB BLOOD ORDERABLES F inal Result [facility] [address] Department [place] [address] * (ABNORMAL) POCT glucose (09/18/2024 4:28 AM CAN FILLING ROOM SWEEPER) [facility] Glucose, POC 243(H) 70 - 199 mg/dL Comment: For Glucose values <35 mg/dl when Hematocrit is >60 mg/dl,the test may not accurately detect significant hypoglycemia,and testing in the Laboratory should be considered if clinically indicated. Blood 09/18/2024 4:28 AM CAN FILLING ROOM SWEEPER 09/18/2024 4:28 AM CAN FILLING ROOM SWEEPER us Elida Winsome Musa DO LAB POCT ORDERABLES - DEVICE Final Result [facility] [address] [place] [address] * (ABNORMAL) DIC Coagulation (09/18/2024 4:20 AM CAN FILLING ROOM SWEEPER) PT DIC 10.5 10.3 - 13.7 sec INR DIC 0.97 0.90 - 1.20 [facility] PTT DIC 18(L) 28 - 38 sec [facility] Comment: Specimen integrity okay Interpretive Data Heparin therapeutic range: 66.0 - 100.0 seconds. Range based on correlation with therapeutic heparin activity range of 0.3 - 0.7 Units/mL. Current interpretive data was last revised on 2023. D-Dimer 13,588(H) <=499 ng/mL FEU [facility] Comment: Specimen not clotted and filled properly Interpretive data FDA approved the D-dimer, in conjunction with a low or moderate pretest probability score, to exclude venous thromboembolic events (VTE) (PE and DVT) in outpatients when the D-dimer result is < 500 ng/ml FEU. Evidence supports using an age-adjusted D-dimer cut-off for outpatients older than 50 (age x 10) to improve specificity without sacrificing sensitivity. Example: age 68, VTE cut-off 680 ng/ml FEU. References; Schouten HT et al. Brit Med J. 2013;346:f2492. Shabana et al. Annals Int Med. 2015;163:701-11. Current interpretive data was last revised on 2019. Fibrinogen 775(H) 170 - 400 mg/dL [facility] Blood 09/18/2024 4:20 AM CAN FILLING ROOM SWEEPER 09/18/2024 4:21 AM CAN FILLING ROOM SWEEPER Elida Winsome Vigil LAB BLOOD ORDERABLES F inal Result Performing Organization Address [facility] Co de Phone Number [facility] [address] [place] [address] * (ABNORMAL) POCT glucose (09/17/2024 11:57 PM CAN FILLING ROOM SWEEPER) Glucose, POC 263(H) 70 - 199 mg/dL Comment: For Glucose values <35 mg/dl when Hematocrit is >60 mg/dl,the test may not accurately detect significant hypoglycemia,and testing in the Laboratory should be considered if clinically indicated. Blood 09/17/2024 11:5 7 PM CAN FILLING ROOM SWEEPER 09/17/2024 11:57 PM CAN FILLING ROOM SWEEPER Elida Winsome Vigil [facility] POCT ORDERABLES - DEVICE Final Result Performing Organization Address [facility] de Phone Number [facility] [address] [facility] [place] [address] * (ABNORMAL) POCT glucose (09/17/2024 8:02 PM CAN FILLING ROOM SWEEPER) Glucose, POC 291(H) 70 - 199 mg/dL Comment: For Glucose values <35 mg/dl when Hematocrit is >60 mg/dl,the test may not accurately detect significant hypoglycemia,and testing in the Laboratory should be considered if clinically indicated. Blood 09/17/2024 8:02 PM CAN FILLING ROOM SWEEPER 09/17/2024 8:02 PM CAN FILLING ROOM SWEEPER Elida Winsome Barks LAB POCT ORDERABLES - DEVICE Final Result Performing Organization Address [facility] Co de Phone Number [facility] [address] [facility] [place] [address] * (ABNORMAL) POCT glucose (09/17/2024 4:21 PM CAN FILLING ROOM SWEEPER) Glucose, POC 283(H) 70 - 199 mg/dL Comment: For Glucose values <35 mg/dl when Hematocrit is >60 mg/dl,the test may not accurately detect significant hypoglycemia,and testing in the Laboratory should be considered if clinically indicated. Blood 09/17/2024 4:21 PM CAN FILLING ROOM SWEEPER 09/17/2024 4:21 PM CAN FILLING ROOM SWEEPER Elida Vigil DO LAB POCT ORDERABLES - DEVICE Final Result Performing Organization Address [facility] Co de Phone Number [facility] [address] [place] [address] * (ABNORMAL) eGFR (09/17/2024 2:52 PM CAN FILLING ROOM SWEEPER) [facility] eGFR 34(L) >=60 mL/min/1. 73 m2 Comment: Interpretive Data Reference Interval Normal >/= 90 mL/min/1.73m2 Mildly decreased* 60 - 89 mL/min/1.73m2 Mildly to moderately decreased 45 - 59 mL/min/1.73m2 Moderately to severely decreased 30 - 44 mL/min/1.73m2 Severely decreased 15 - 29 mL/min/1.73m2 Kidney Failure < 15 mL/min/1.73m2 *Relative to young adult level Estimated glomerular [...] interpretive data was last reviewed 2021. Blood 09/17/2024 2:52 PM CAN FILLING ROOM SWEEPER 09/17/2024 2:57 PM CAN FILLING ROOM SWEEPER Elida Vigil DO LAB BLOOD ORDERABLES F inal Result Performing Organization Address [facility]/ZIP Co de Phone Number [facility] [address] [place] [address] * (ABNORMAL) Renal function panel (09/17/2024 2:52 PM CAN FILLING ROOM SWEEPER) Pathologist [facility] Sodium 143 135 - 145 mmol/L Potassium, pl 3.6 3.3 - 4.9 mmol/L [facility] Chloride 110 97 - 110 mmol/L [facility] CO2 21(L) 22 - 32 mmol/L [facility] Anion gap 12 2 - 15 mmol/L [facility] BUN 41(H) 6 - 25 mg/dL [facility] Creatinine 1.82(H) 0.60 - 1.10 mg/dL [facility] Glucose 290(H) 70 - 199 mg/dL [facility] Comment: Interpretive Data Fasting glucose >/= 126 mg/dl is diagnostic for diabetes. Fasting is defined as no caloric intake for at least 8 hours. Fasting glucose between 100 mg/dl to 125 mg/dl is diagnostic of prediabetes. In a patient with classic symptoms of hyperglycemia or hyperglycemic crisis, a random glucose >/= 200 mg/dl is diagnostic for diabetes. In the absence of unequivocal hyperglycemia, results should be confirmed by repeat testing. The classification and Diagnosis of Diabetes Diabetes Care 202; 46: S19-S40. Current interpretive data was last revised 2022. Calcium 7.9(L) 8.5 - 10.3 mg/dL [facility] Phosphorus, pl 5.0(H) 2.3 - 4.5 mg/dL [facility] Comment:Reviewed Albumin 2.4(L) 3.5 - 5.0 g/dL [facility] Blood 09/17/2024 2:52 PM CAN FILLING ROOM SWEEPER 09/17/2024 2:57 PM CAN FILLING ROOM SWEEPER us Elida Vigil DO LAB BLOOD ORDERABLES F inal Result [facility] [address] Department [place] [address] * (ABNORMAL) POCT glucose (09/17/2024 12:23 PM CAN FILLING ROOM SWEEPER) [facility] Glucose, POC 278(H) 70 - 199 mg/dL Comment: For Glucose values <35 mg/dl when Hematocrit is >60 mg/dl,the test may not accurately detect significant hypoglycemia,and testing in the Laboratory should be considered if clinically indicated. Blood 09/17/2024 12:2 3 PM CAN FILLING ROOM SWEEPER 09/17/2024 12:23 PM CAN FILLING ROOM SWEEPER Elida Vigil DO LAB POCT ORDERABLES - DEVICE Final Result Performing Organization Address [facility] de Phone Number [facility] [address] [facility] [place] [address] * (ABNORMAL) POCT glucose (09/17/2024 7:09 AM CAN FILLING ROOM SWEEPER) Glucose, POC 294(H) 70 - 199 mg/dL Comment: For Glucose values <35 mg/dl when Hematocrit is >60 mg/dl,the test may not accurately detect significant hypoglycemia,and testing in the Laboratory should be considered if clinically indicated. Blood 09/17/2024 7:09 AM CAN FILLING ROOM SWEEPER 09/17/2024 7:09 AM CAN FILLING ROOM SWEEPER Elida Vigil DO LAB POCT ORDERABLES - DEVICE Final Result Performing Organization Address [facility] de Phone Number [facility] [address] [facility] [place] [address] * (ABNORMAL) POCT glucose (09/17/2024 4:42 AM CAN FILLING ROOM SWEEPER) Glucose, POC 300(H) 70 - 199 mg/dL Comment: For Glucose values <35 mg/dl when Hematocrit is >60 mg/dl,the test may not accurately detect significant hypoglycemia,and testing in the Laboratory should be considered if clinically indicated. Blood 09/17/2024 4:42 AM CAN FILLING ROOM SWEEPER 09/17/2024 4:42 AM CAN FILLING ROOM SWEEPER Elida Vigil DO LAB POCT ORDERABLES - DEVICE Final Result Performing Organization Address [facility] de Phone Number [facility] [address] [place] [address] * (ABNORMAL) eGFR (09/17/2024 4:10 AM CAN FILLING ROOM SWEEPER) eGFR 36(L) >=60 mL/min/1. 73 m2 Comment: Interpretive Data Reference Interval Normal >/= 90 mL/min/1.73m2 Mildly decreased* 60 - 89 mL/min/1.73m2 Mildly to moderately decreased 45 - 59 mL/min/1.73m2 Moderately to severely decreased 30 - 44 mL/min/1.73m2 Severely decreased 15 - 29 mL/min/1.73m2 Kidney Failure < 15 mL/min/1.73m2 *Relative to young adult level Estimated glomerular [...] interpretive data was last reviewed 2021. Blood 09/17/2024 4:10 AM CAN FILLING ROOM SWEEPER 09/17/2024 4:10 AM CAN FILLING ROOM SWEEPER us Elida Vigil DO LAB BLOOD ORDERABLES F inal Result Performing Organization Address City/[facility]/ZIP Co de Phone Number [facility] [address] [place] [address] * Thyroid Function [place] (09/17/2024 4:10 AM CAN FILLING ROOM SWEEPER) TSH 1.79 0.30 - 4.20 mcIUnit/mL Blood 09/17/2024 4:10 AM CAN FILLING ROOM SWEEPER 09/17/2024 4:10 AM CAN FILLING ROOM SWEEPER Elida Winsome FanDuelhenok DO LAB BLOOD ORDERABLES F inal Result [facility] [address] [place] [address] * (ABNORMAL) CBC with auto differential (09/17/2024 4:10 AM CAN FILLING ROOM SWEEPER) [facility] WBC 7.1 3.8 - 9.9 K/cumm Hgb 8.7(L) 11.9 - 15.5 g/dL [facility] Hct 27.4(L) 35.6 - 45.5 % [facility] Plt 93(L) 150 - 400 K/cumm [facility] MPV 12.8(H) 9.1 - 12.3 fL [facility] RBC 3.03(L) 3.90 - 5.20 M/cumm [facility] MCV 90.4 81.3 - 96.4 fL [facility] MCH 28.7 27.1 - 33.3 pg [facility] MCHC 31.8(L) 32.3 - 35.7 g/dL [facility] RDW CV 14.6 11.1 - 14.9 % [facility] RDW SD 48.9(H) 35.7 - 48.1 fL [facility] NRBC abs 0.00 0.00 - 0.01 K/cumm [facility] Blood 09/17/2024 4:10 AM CAN FILLING ROOM SWEEPER 09/17/2024 4:10 AM CAN FILLING ROOM SWEEPER us Elida Vigil DO LAB BLOOD ORDERABLES F inal Result [facility] [address] [place] [address] * (ABNORMAL) Manual Differential (09/17/2024 4:10 AM CAN FILLING ROOM SWEEPER) [facility] Differential Manual Cells Counted 120 [facility] Neutrophil abs 5.9 1.5 - 6.5 K/cumm [facility] Imm gran abs 0.2(H) 0.0 - 0.1 K/cumm [facility] Lymphocyte abs 0.6(L) 0.8 - 3.3 K/cumm [facility] Monocyte abs 0.4 0.2 - 0.8 K/cumm [facility] Eosinophil abs 0.1 0.0 - 0.5 K/cumm [facility] Basophil abs 0.1 0.0 - 0.1 K/cumm [facility] Neutrophil pct 82.6 % [facility] Comment: Interpretive Data Percent cell count reference ranges are not reported, since discordance with absolute values may lead to misinterpretation of CBC data. Current Interpretive Data was last revised on 2017. Lymphocyte pct 8.3 % [facility] Comment: Interpretive Data Percent cell count reference ranges are not reported, since discordance with absolute values may lead to misinterpretation of CBC data. Current Interpretive Data was last revised on 2017. Monocyte pct 5.0 % [facility] Comment: Interpretive Data Percent cell count reference ranges are not reported, since discordance with absolute values may lead to misinterpretation of CBC data. Current Interpretive Data was last revised on 2017. Eosinophil pct 0.8 % [facility] Comment: Interpretive Data Percent cell count reference ranges are not reported, since discordance with absolute values may lead to misinterpretation of CBC data. Current Interpretive Data was last revised on 2017. Basophil pct 0.8 % [facility] Comment: Interpretive Data Percent cell count reference ranges are not reported, since discordance with absolute values may lead to misinterpretation of CBC data. Current Interpretive Data was last revised on 2017. Myelocyte pct 0.8(H) 0.0 - 0.0 % [facility] Promyelocyte pct 1.7(H) 0.0 - 0.0 % [facility] RBC morphology Present(A) [facility] Anisocytosis Slight(A) [facility] Morphology scrn See Comment [facility] Comment:PLT: Platelet morpho logy normal Blood 09/17/2024 4:10 AM CAN FILLING ROOM SWEEPER 09/17/2024 4:10 AM CAN FILLING ROOM SWEEPER us Elida Vigil DO LAB BLOOD ORDERABLES F inal Result [facility] [address] [place] [address] * (ABNORMAL) Phosphorus (09/17/2024 4:10 AM CAN FILLING ROOM SWEEPER) Phosphorus, pl 2.2(L) 2.3 - 4.5 mg/dL Blood 09/17/2024 4:10 AM CAN FILLING ROOM SWEEPER 09/17/2024 4:10 AM CAN FILLING ROOM SWEEPER Elida Vigil DO LAB BLOOD ORDERABLES F inal Result Performing Organization Address City/[facility] Co de Phone Number [facility] [address] [facility] [place] [address] * Magnesium (09/17/2024 4:10 AM CAN FILLING ROOM SWEEPER) Magnesium 2.3 1.4 - 2.5 mg/dL Blood 09/17/2024 4:10 AM CAN FILLING ROOM SWEEPER 09/17/2024 4:10 AM CAN FILLING ROOM SWEEPER Elida Schumacher Musa DO LAB BLOOD ORDERABLES F inal Result Performing Organization Address City/[facility] Co de Phone Number [facility] [address] [facility] [place] [address] * (ABNORMAL) Haptoglobin (09/17/2024 4:10 AM CAN FILLING ROOM SWEEPER) Haptoglobin 408(H) 30 - 200 mg/dL Blood 09/17/2024 4:10 AM CAN FILLING ROOM SWEEPER 09/17/2024 4:10 AM CAN FILLING ROOM SWEEPER Elida Verahenok [employer] LAB BLOOD ORDERABLES F inal Result Performing Organization Address City/[facility] Co de Phone Number [facility] [address] [facility] [place] [address] * (ABNORMAL) Comprehensive metabolic panel (09/17/2024 4:10 AM CAN FILLING ROOM SWEEPER) Sodium 143 135 - 145 mmol/L Potassium, pl 2.8(L) 3.3 - 4.9 mmol/L [facility] Chloride 109 97 - 110 mmol/L [facility] CO2 21(L) 22 - 32 mmol/L [facility] Anion gap 13 2 - 15 mmol/L [facility] BUN 43(H) 6 - 25 mg/dL [facility] Creatinine 1.71(H) 0.60 - 1.10 mg/dL [facility] Glucose 288(H) 70 - 199 mg/dL [facility] Comment: Interpretive Data Fasting glucose >/= 126 mg/dl is diagnostic for diabetes. Fasting is defined as no caloric intake for at least 8 hours. Fasting glucose between 100 mg/dl to 125 mg/dl is diagnostic of prediabetes. In a patient with classic symptoms of hyperglycemia or hyperglycemic crisis, a random glucose >/= 200 mg/dl is diagnostic for diabetes. In the absence of unequivocal hyperglycemia, results should be confirmed by repeat testing. The classification and Diagnosis of Diabetes Diabetes Care 2021; 46: S19-S40. Current interpretive data was last revised 2022. Calcium 7.9(L) 8.5 - 10.3 mg/dL [facility] Bilirubin, total 0.3 0.1 - 1.2 mg/dL [facility] Protein, pl 5.5(L) 6.5 - 8.5 g/dL [facility] Albumin 2.2(L) 3.5 - 5.0 g/dL [facility] Alk phos 115 40 - 130 Units/L [facility] ALT 18 7 - 45 Units/L [facility] AST 23 10 - 45 Units/L [facility] Blood 09/17/2024 4:10 AM CAN FILLING ROOM SWEEPER 09/17/2024 4:10 AM CAN FILLING ROOM SWEEPER us Elida Vigil DO LAB BLOOD ORDERABLES F inal Result [facility] [address] Department [place] [address] * XR Chest 1 View (09/17/2024 2:59 AM CAN FILLING ROOM SWEEPER) Anatomical Region Laterality Modality Body, Chest N/A Computed Radiogr aphy 09/17/2024 7:00 AM CAN FILLING ROOM SWEEPER Impressions 09/17/2024 7:00 AM CAN FILLING ROOM SWEEPER Comparison chest radiograph 09/16/2024. Endotracheal tube terminates 4 cm above the jessenia. Gastric tube courses along the esophagus and terminates below the diaphragm outside the [id number]. Small lung volumes. Similar-appearing patchy airspace opacity in left lower lung which may represent a pneumonia. Right lung is clear. No pleural effusion or pneumothorax. Heart size and mediastinal contours are stable. Electronically signed by: Teja Angeles MD, PHD Narrative 09/17/2024 7:00 AM CAN FILLING ROOM SWEEPER EXAMINATION: XR CHEST 1 VIEW Procedure Note Teja Angeles MD PhD - 09/17/2024 EXAMINATION: XR CHEST 1 VIEW IMPRESSION: Comparison chest radiograph 09/16/2024. Endotracheal tube terminates 4 cm above the jessenia. Gastric tube courses along the esophagus and terminates below the diaphragm outside the [id number]. Small lung volumes. Similar-appearing patchy airspace opacity in left lower lung which may represent a pneumonia. Right lung is clear. No pleural effusion or pneumothorax. Heart size and mediastinal contours are stable. Electronically signed by: Teja Angeles MD, PHD Elida Vigil DO IMG XR PROCEDURES Salma l Result * (ABNORMAL) POCT glucose (09/16/2024 11:48 PM CAN FILLING ROOM SWEEPER) Glucose, POC 288(H) 70 - 199 mg/dL Comment: For Glucose values <35 mg/dl when Hematocrit is >60 mg/dl,the test may not accurately detect significant hypoglycemia,and testing in the Laboratory should be considered if clinically indicated. Blood 09/16/2024 11:4 8 PM CAN FILLING ROOM SWEEPER 09/16/2024 11:48 PM CAN FILLING ROOM SWEEPER us Elida Vigil DO LAB POCT ORDERABLES - DEVICE Final Result [facility] [address] [place] [address] * (ABNORMAL) POCT glucose (09/16/2024 8:12 PM CAN FILLING ROOM SWEEPER) Glucose, POC 265(H) 70 - 199 mg/dL Comment: For Glucose values <35 mg/dl when Hematocrit is >60 mg/dl,the test may not accurately detect significant hypoglycemia,and testing in the Laboratory should be considered if clinically indicated. Blood 09/16/2024 8:12 PM CAN FILLING ROOM SWEEPER 09/16/2024 8:12 PM CAN FILLING ROOM SWEEPER Elida Vigil DO LAB POCT ORDERABLES - DEVICE Final Result Performing Organization Address [facility] de Phone Number [facility] [address] [place] [address] * (ABNORMAL) POCT glucose (09/16/2024 4:04 PM CAN FILLING ROOM SWEEPER) Glucose, POC 310(H) 70 - 199 mg/dL Comment: For Glucose values <35 mg/dl when Hematocrit is >60 mg/dl,the test may not accurately detect significant hypoglycemia,and testing in the Laboratory should be considered if clinically indicated. Blood 09/16/2024 4:04 PM CAN FILLING ROOM SWEEPER 09/16/2024 4:04 PM CAN FILLING ROOM SWEEPER Elida Vigil DO LAB POCT ORDERABLES - DEVICE Final Result Performing Organization Address [facility] Co de Phone Number [facility] [address] [place] [address] * (ABNORMAL) POCT glucose (09/16/2024 12:27 PM CAN FILLING ROOM SWEEPER) Glucose, POC 271(H) 70 - 199 mg/dL Comment: For Glucose values <35 mg/dl when Hematocrit is >60 mg/dl,the test may not accurately detect significant hypoglycemia,and testing in the Laboratory should be considered if clinically indicated. Blood 09/16/2024 12:2 7 PM CAN FILLING ROOM SWEEPER 09/16/2024 12:27 PM CAN FILLING ROOM SWEEPER us Elida Schumacher Chuyhenok DO LAB POCT ORDERABLES - DEVICE Final Result [facility] [address] Department [place] [address] * US Vein Duplex Lower Extremity Bilateral Complete (09/16/2024 11:24 AM CAN FILLING ROOM SWEEPER) Anatomical Region Laterality Modality Vascular Bilateral Ultrasound 09/16/2024 3:48 PM CAN FILLING ROOM SWEEPER Impressions 09/16/2024 3:48 PM CAN FILLING ROOM SWEEPER 1. This study does not demonstrate evidence of deep vein thrombosis in the right lower extremity. None 2. This study does not demonstrate evidence of deep vein thrombosis in the left lower extremity. None 3. Note: Small isolated thrombi may be difficult to visualize, especially in the calf veins. Electronically signed by: Kwaku Tolentino M.D. Narrative 09/16/2024 3:48 PM CAN FILLING ROOM SWEEPER Lower Extremity Vein Duplex Bilateral DATE: 09/16/2024 9:00 AM EXAM: Venous duplex imaging of bilateral lower extremities. INDICATION: Shortness of breath bilateral lower extremity pain and swelling. COMPARISON: None available Bilateral common femoral vein, femoral vein, popliteal vein, peroneal veins and posterior tibial veins were all assessed for compressibility and patency. FINDINGS: RIGHT: IMAGE QUALITY: Good. FILLING DEFECTS: There is no evident of filling defects in the deep veins of the right lower extremity. COMPRESSIBILITY: Compressibility is maintained. DOPPLER EVALUATION: Flow can be augmented and spine to respiration. REFLUX FLOW: None. INCIDENTAL FINDINGS: None. LEFT: IMAGE QUALITY: Good. FILLING DEFECTS: There is no evident of filling defects in the deep veins of the left lower extremity. COMPRESSIBILITY: Compressibility is maintain. DOPPLER EVALUATION: Flow can be augmented and spine to respiration. REFLUX FLOW: None. INCIDENTAL FINDINGS: None. Procedure Note Kwaku Tolentino MD - 09/16/2024 Lower Extremity Vein Duplex Bilateral DATE: 09/16/2024 9:00 AM EXAM: Venous duplex imaging of bilateral lower extremities. INDICATION: Shortness of breath bilateral lower extremity pain and swelling. COMPARISON: None available Bilateral common femoral vein, femoral vein, popliteal vein, peroneal veins and posterior tibial veins were all assessed for compressibility and patency. FINDINGS: RIGHT: IMAGE QUALITY: Good. FILLING DEFECTS: There is no evident of filling defects in the deep veins of the right lower extremity. COMPRESSIBILITY: Compressibility is maintained. DOPPLER EVALUATION: Flow can be augmented and spine to respiration. REFLUX FLOW: None. INCIDENTAL FINDINGS: None. LEFT: IMAGE QUALITY: Good. FILLING DEFECTS: There is no evident of filling defects in the deep veins of the left lower extremity. COMPRESSIBILITY: Compressibility is maintain. DOPPLER EVALUATION: Flow can be augmented and spine to respiration. REFLUX FLOW: None. INCIDENTAL FINDINGS: None. IMPRESSION: 1. This study does not demonstrate evidence of deep vein thrombosis in the right lower extremity. None 2. This study does not demonstrate evidence of deep vein thrombosis in the left lower extremity. None 3. Note: Small isolated thrombi may be difficult to visualize, especially in the calf veins. Electronically signed by: Kwaku Tolentino M.D. Flo Villagran MD [facility] PROCEDURES Final Resu lt * [place] INSJ NON-TUNNELED CENTRAL VENOUS CATH AGE 4 YR/> (09/16/2024 8:53 AM CAN FILLING ROOM SWEEPER) Narrative Hugh Shanks PA - 09/16/2024 8:53 AM CAN FILLING ROOM SWEEPER Hugh Shanks PA 09/16/2024 8:54 AM Midline Date/Time: 09/16/2024 8:53 AM Performed by: Hugh Shanks PA Authorized by: Hugh Shanks PA [place] Protocol: RN Notified of Procedure: yes Informed consent: Risks, benefits, alternatives discussed and patient/insurance service representative/guardian agrees and accepts Patient's stated name/ matches armband: Yes Allergies confirmed: yes Imaging: Pertinent imaging reviewed, correctly oriented and match to patient identifiers Supplies, devices and special equipment are available: yes Site/side marked: yes Immediately prior to the procedure a time out was called: a verbal verification by the procedure participants confirmed correct patient identity, correct site/side marked and visible (if applicable); agreement on procedure to be done; and correct patient positioning Indications: Vascular access Anesthesia (see MAR for exact dosage) Anesthesia method: Local infiltration Local anesthetic: Lidocaine 1% Patient position: Flat Skin preparation: Skin prepped with 2% chlorhexidine Provider preparation: Cap, partial body drape, mask, handwashing, gown and gloves Location: right basillic vein. Ultrasound guidance: Sterile probe cover used, pre-procedure diagnostic and real-time needle guidance Assessment: Blood return through all ports and free fluid flow Catheter type: Double lumen Catheter placed through introducer: Transvenous (yes) Catheter size: 4 Fr Needle inserted, vein idenitified then guidewire inserted easily into vein: Yes Number of attempts: 1 Successful placement: Yes Catheter length (cm): 20 Line securement: Securement device and dressing applied Patient tolerance: Patient tolerated the procedure well with no immediate complications Post Procedure Debrief: All guidewires, needles, sponges or other items are accounted for: yes us Hugh VALERIO IN CLINIC/BEDSIDE ORDER JAROD Final Result * Blood culture Blood (09/16/2024 8:53 AM CAN FILLING ROOM SWEEPER) Report Final Report: No growth Blood 09/16/2024 8:53 AM CAN FILLING ROOM SWEEPER 09/16/2024 8:56 AM CAN FILLING ROOM SWEEPER Narrative [facility] - 09/21/2024 1:01 PM CAN FILLING ROOM SWEEPER From a different site than #1. Interpretive Data 1. Blood cultures are incubated and monitored continuously for 5 days (120 hours). The first negative report is issued within 24 hours of receipt in the laboratory. 2. All positive cultures are resulted and called to physicians/care providers as soon as they are detected. 3. A rapid molecular test for organism identification may be performed using the [employer] Blood Culture Identification panel. This assay detects microbial DNA in a blood culture broth. This assay has been cleared by the [place] Food and Drug Administration and its performance characteristics have been verified by the [facility]. Interpretive data was last revised on September 11, 2022. us Elida Vigil DO LAB MICROBIOLOGY - GEN ERAL ORDERABLES Final Result [facility] [address] Department [place] [address] * Blood culture Blood (09/16/2024 8:45 AM CAN FILLING ROOM SWEEPER) Pathologist [facility] Report Final Report: No growth Blood 09/16/2024 8:45 AM CAN FILLING ROOM SWEEPER 09/16/2024 8:56 AM CAN FILLING ROOM SWEEPER Narrative [facility] - 09/21/2024 1:01 PM CAN FILLING ROOM SWEEPER Interpretive Data 1. Blood cultures are incubated and monitored continuously for 5 days (120 hours). The first negative report is issued within 24 hours of receipt in the laboratory. 2. All positive cultures are resulted and called to physicians/care providers as soon as they are detected. 3. A rapid molecular test for organism identification may be performed using the [employer] Blood Culture Identification panel. This assay detects microbial DNA in a blood culture broth. This assay has been cleared by the [place] Food and Drug Administration and its performance characteristics have been verified by the [facility]. Interpretive data was last revised on September 11, 2022. Elida Vigil DO LAB MICROBIOLOGY - GEN ERAL ORDERABLES Final Result [facility] [address] [place] [address] * (ABNORMAL) POCT glucose (09/16/2024 7:33 AM CAN FILLING ROOM SWEEPER) Pathologist [facility] Glucose, POC 232(H) 70 - 199 mg/dL Comment: For Glucose values <35 mg/dl when Hematocrit is >60 mg/dl,the test may not accurately detect significant hypoglycemia,and testing in the Laboratory should be considered if clinically indicated. Blood 09/16/2024 7:33 AM CAN FILLING ROOM SWEEPER 09/16/2024 7:33 AM CAN FILLING ROOM SWEEPER Flo Villagran MD LAB POCT ORDERABLES - DEVICE Final Result [facility] [address] [place] [address] * (ABNORMAL) CBC with auto differential (09/16/2024 5:30 AM CAN FILLING ROOM SWEEPER) [facility] WBC 5.4 3.8 - 9.9 K/cumm Hgb 8.6(L) 11.9 - 15.5 g/dL [facility] Hct 28.2(L) 35.6 - 45.5 % [facility] Plt 81(L) 150 - 400 K/cumm [facility] MPV 13.9(H) 9.1 - 12.3 fL [facility] RBC 3.01(L) 3.90 - 5.20 M/cumm [facility] MCV 93.7 81.3 - 96.4 fL [facility] MCH 28.6 27.1 - 33.3 pg [facility] MCHC 30.5(L) 32.3 - 35.7 g/dL [facility] RDW CV 14.9 11.1 - 14.9 % [facility] RDW SD 51.3(H) 35.7 - 48.1 fL [facility] NRBC abs 0.00 0.00 - 0.01 K/cumm [facility] Blood 09/16/2024 5:30 AM CAN FILLING ROOM SWEEPER 09/16/2024 5:39 AM CAN FILLING ROOM SWEEPER Flo Villagran MD LAB BLOOD ORDERABLES Final R esult [facility] [address] Department [place] [address] * (ABNORMAL) Manual Differential (09/16/2024 5:30 AM CAN FILLING ROOM SWEEPER) [facility] Differential Manual Cells Counted 116 [facility] Neutrophil abs 4.4 1.5 - 6.5 K/cumm [facility] Imm gran abs 0.0 0.0 - 0.1 K/cumm [facility] Lymphocyte abs 0.6(L) 0.8 - 3.3 K/cumm [facility] Monocyte abs 0.3 0.2 - 0.8 K/cumm [facility] Eosinophil abs 0.0 0.0 - 0.5 K/cumm [facility] Neutrophil pct 81.0 % [facility] Comment: Interpretive Data Percent cell count reference ranges are not reported, since discordance with absolute values may lead to misinterpretation of CBC data. Current Interpretive Data was last revised on 2017. Lymphocyte pct 12.1 % [facility] Comment: Interpretive Data Percent cell count reference ranges are not reported, since discordance with absolute values may lead to misinterpretation of CBC data. Current Interpretive Data was last revised on 2017. Monocyte pct 6.0 % [facility] Comment: Interpretive Data Percent cell count reference ranges are not reported, since discordance with absolute values may lead to misinterpretation of CBC data. Current Interpretive Data was last revised on 2017. Eosinophil pct 0.9 % [facility] Comment: Interpretive Data Percent cell count reference ranges are not reported, since discordance with absolute values may lead to misinterpretation of CBC data. Current Interpretive Data was last revised on 2017. RBC morphology Present(A) [facility] Hypochromasia 3-7/HPF(A) [facility] Anisocytosis Slight(A) [facility] Microcytes 3-7/HPF(A) [facility] Morphology scrn See Comment [facility] Comment:PLT: Giant platelets present Blood 09/16/2024 5:30 AM CAN FILLING ROOM SWEEPER 09/16/2024 5:39 AM CAN FILLING ROOM SWEEPER Flo Villagran MD LAB BLOOD ORDERABLES Final R esult [facility] [address] Department [place] [address] * POCT glucose (09/16/2024 5:23 AM CAN FILLING ROOM SWEEPER) Glucose, POC 178 70 - 199 mg/dL Comment: For Glucose values <35 mg/dl when Hematocrit is >60 mg/dl,the test may not accurately detect significant hypoglycemia,and testing in the Laboratory should be considered if clinically indicated. Blood 09/16/2024 5:23 AM CAN FILLING ROOM SWEEPER 09/16/2024 5:23 AM CAN FILLING ROOM SWEEPER us Flo Villagran MD LAB POCT ORDERABLES - DEVICE Final Result [facility] [address] Department [place] [address] * X-ray chest 1 view (09/16/2024 4:37 AM CAN FILLING ROOM SWEEPER) Anatomical Region Laterality Modality Body, Chest N/A Computed Radiogr aphy 09/16/2024 7:29 AM CAN FILLING ROOM SWEEPER Impressions 09/16/2024 7:29 AM CAN FILLING ROOM SWEEPER Endotracheal tube with tip approximately 3.6 cm superior to jessenia. Gastric tube extends inferior to the [id number] the study, below the GE junction. There are heterogeneous left mid lung and bibasilar lung opacities appear not significantly changed from prior. There is no pneumothorax or definite pleural effusion. Heart and mediastinum are unchanged. Electronically signed by: Abeba Castellano M.D. Narrative 09/16/2024 7:29 AM CAN FILLING ROOM SWEEPER EXAMINATION: 1 view chest radiograph COMPARISON: 09/15/2024 INDICATION: ET Tube For endotracheal tube position Procedure Note Abeba Castellano MD - 09/16/2024 EXAMINATION: 1 view chest radiograph COMPARISON: 09/15/2024 INDICATION: ET Tube For endotracheal tube position IMPRESSION: Endotracheal tube with tip approximately 3.6 cm superior to jessenia. Gastric tube extends inferior to the [id number] the study, below the GE junction. There are heterogeneous left mid lung and bibasilar lung opacities appear not significantly changed from prior. There is no pneumothorax or definite pleural effusion. Heart and mediastinum are unchanged. Electronically signed by: Abeba Castellano M.D. Flo Villagran MD IMG XR PROCEDURES Final Resu lt * (ABNORMAL) eGFR (09/16/2024 4:05 AM CAN FILLING ROOM SWEEPER) eGFR 33(L) >=60 mL/min/1. 73 m2 Comment: Interpretive Data Reference Interval Normal >/= 90 mL/min/1.73m2 Mildly decreased* 60 - 89 mL/min/1.73m2 Mildly to moderately decreased 45 - 59 mL/min/1.73m2 Moderately to severely decreased 30 - 44 mL/min/1.73m2 Severely decreased 15 - 29 mL/min/1.73m2 Kidney Failure < 15 mL/min/1.73m2 *Relative to young adult level Estimated glomerular [...] interpretive data was last reviewed 2021. Blood 09/16/2024 4:05 AM CAN FILLING ROOM SWEEPER 09/16/2024 4:12 AM CAN FILLING ROOM SWEEPER Flo Villagran MD LAB BLOOD ORDERABLES Final R esult [facility] [address] Department [place] [address] * Blood culture Blood (09/16/2024 4:05 AM CAN FILLING ROOM SWEEPER) Report Final Report: No growth Blood 09/16/2024 4:05 AM CAN FILLING ROOM SWEEPER 09/16/2024 4:38 AM CAN FILLING ROOM SWEEPER Narrative [facility] - 09/21/2024 7:01 AM CAN FILLING ROOM SWEEPER Interpretive Data 1. Blood cultures are incubated and monitored continuously for 5 days (120 hours). The first negative report is issued within 24 hours of receipt in the laboratory. 2. All positive cultures are resulted and called to physicians/care providers as soon as they are detected. 3. A rapid molecular test for organism identification may be performed using the [employer] Blood Culture Identification panel. This assay detects microbial DNA in a blood culture broth. This assay has been cleared by the [place] Food and Drug Administration and its performance characteristics have been verified by the [facility]. Interpretive data was last revised on September 11, 2022. Flo Villagran MD LAB MICROBIOLOGY - GENERAL O RDERABLES Final Result Performing Organization Address [facility] Co de Phone Number [facility] [address] [facility] [place] [address] * (ABNORMAL) Triglycerides (09/16/2024 4:05 AM CAN FILLING ROOM SWEEPER) Triglycerides 876(H) <=149 mg/dL Comment: Interpretive Data Ages < or = 9 years Acceptable: <75 mg/dL Borderline high: 75-99 mg/dL High: >or= 100 mg/dL Ages 10 to 20 years Acceptable: <90 mg/dL Borderline high: 90-129 mg/dL High: >or= 130 mg/dL Ages > or = 20 years Desirable: <150 mg/dL Borderline high: 150-199 mg/dL High: 200-499 mg/dL Very high: >or= 499 mg/dL Literature References: 1. Expert Panel on Integrated Guidelines for Cardiovascular Health and Risk Reduction in Children and Adolescents. Pediatrics 2011;128:S213 2. NCEP Expert Panel. Circulation 2004;110:227 Current Interpretive Data was last revised on 2018. Blood 09/16/2024 4:05 AM CAN FILLING ROOM SWEEPER 09/16/2024 4:05 AM CAN FILLING ROOM SWEEPER Flo Villagran MD LAB BLOOD ORDERABLES Final R esult Performing Organization Address [facility] Co de Phone Number [facility] [address] [facility] [place] [address] * Magnesium (09/16/2024 4:05 AM CAN FILLING ROOM SWEEPER) Magnesium 2.2 1.4 - 2.5 mg/dL Blood 09/16/2024 4:05 AM CAN FILLING ROOM SWEEPER 09/16/2024 4:12 AM CAN FILLING ROOM SWEEPER Flo Villagran MD LAB BLOOD ORDERABLES Final R esult Performing Organization Address [facility] Co de Phone Number [facility] [address] Department [place] [address] * (ABNORMAL) Renal function panel (09/16/2024 4:05 AM CAN FILLING ROOM SWEEPER) [facility] Sodium 139 135 - 145 mmol/L Potassium, pl 3.3 3.3 - 4.9 mmol/L [facility] Chloride 107 97 - 110 mmol/L [facility] CO2 19(L) 22 - 32 mmol/L [facility] Anion gap 13 2 - 15 mmol/L [facility] BUN 47(H) 6 - 25 mg/dL [facility] Creatinine 1.85(H) 0.60 - 1.10 mg/dL [facility] Glucose 137 70 - 199 mg/dL [facility] Comment: Interpretive Data Fasting glucose >/= 126 mg/dl is diagnostic for diabetes. Fasting is defined as no caloric intake for at least 8 hours. Fasting glucose between 100 mg/dl to 125 mg/dl is diagnostic of prediabetes. In a patient with classic symptoms of hyperglycemia or hyperglycemic crisis, a random glucose >/= 200 mg/dl is diagnostic for diabetes. In the absence of unequivocal hyperglycemia, results should be confirmed by repeat testing. The classification and Diagnosis of Diabetes Diabetes Care 2021; 46: S19-S40. Current interpretive data was last revised 2022. Calcium 7.8(L) 8.5 - 10.3 mg/dL [facility] Phosphorus, pl 2.8 2.3 - 4.5 mg/dL [facility] Albumin 2.0(L) 3.5 - 5.0 g/dL [facility] Blood 09/16/2024 4:05 AM CAN FILLING ROOM SWEEPER 09/16/2024 4:12 AM CAN FILLING ROOM SWEEPER us Flo Villagran MD LAB BLOOD ORDERABLES Final R esult [facility] [address] Department [place] [address] * POCT glucose (09/16/2024 3:45 AM CAN FILLING ROOM SWEEPER) [facility] Glucose, POC 137 70 - 199 mg/dL Comment: For Glucose values <35 mg/dl when Hematocrit is >60 mg/dl,the test may not accurately detect significant hypoglycemia,and testing in the Laboratory should be considered if clinically indicated. Blood 09/16/2024 3:45 AM CAN FILLING ROOM SWEEPER 09/16/2024 3:45 AM CAN FILLING ROOM SWEEPER us Flo Villagran MD LAB POCT ORDERABLES - DEVICE Final Result [facility] [address] Department [place] [address] * MRI Brain WO Contrast (09/16/2024 1:48 AM CAN FILLING ROOM SWEEPER) Anatomical Region Laterality Modality Head and Neck N/A Magnetic Resonan ce 09/15/2024 10:4 0 PM CAN FILLING ROOM SWEEPER Impressions 09/16/2024 12:11 PM CAN FILLING ROOM SWEEPER No acute intracranial abnormality seen given motion limitations. For the purposes of billing and quality technician, this study was initially interpreted by teleradiology. There is no significant discrepancy. Dictated by: Hugh Zelaya M.D. The radiology attending physician has personally reviewed this study, and had reviewed and/or edited this written report and agrees with it. Electronically signed by: Matthew Alonso MD, PHD Narrative 09/16/2024 12:11 PM CAN FILLING ROOM SWEEPER EXAMINATION: Magnetic resonance imaging (MRI) of the brain and brainstem without contrast HISTORY: Altered mental status TECHNIQUE: Multiplanar multi-weighted MRI of the brain and brainstem was performed without intravenous contrast using the general brain protocol. COMPARISON: 09/13/2024 FINDINGS: Motion limited exam. Chronic right thalamic lacunar infarct. Scattered white matter T2/FLAIR hyperintensities are nonspecific most commonly due to chronic small vessel ischemia. The scalp and calvarium are normal. The superior sagittal sinus demonstrates normal venous flow. The corpus callosum is normal in shape and signal intensity. The posterior fossa is unremarkable. The pituitary and sella are normal. The brainstem and craniocervical junction are unremarkable. Diffusion weighted images reveal no hyperintensities to suggest acute cerebral infarction. Right caudate microhemorrhage. The ventricles are normal in size and position without evidence of hydrocephalus. Mild paranasal sinus disease. Bilateral mastoid effusions. Right intraocular silicone. Left lens replacement. Normal flow voids are demonstrated in the carotid arteries and basilar artery. Endotracheal and nasogastric tube are seen. Fluid in the oropharynx likely related to intubation. Procedure Note Matthew Alonso MD PhD - 09/16/2024 EXAMINATION: Magnetic resonance imaging (MRI) of the brain and brainstem without contrast HISTORY: Altered mental status TECHNIQUE: Multiplanar multi-weighted MRI of the brain and brainstem was performed without intravenous contrast using the general brain protocol. COMPARISON: 09/13/2024 FINDINGS: Motion limited exam. Chronic right thalamic lacunar infarct. Scattered white matter T2/FLAIR hyperintensities are nonspecific most commonly due to chronic small vessel ischemia. The scalp and calvarium are normal. The superior sagittal sinus demonstrates normal venous flow. The corpus callosum is normal in shape and signal intensity. The posterior fossa is unremarkable. The pituitary and sella are normal. The brainstem and craniocervical junction are unremarkable. Diffusion weighted images reveal no hyperintensities to suggest acute cerebral infarction. Right caudate microhemorrhage. The ventricles are normal in size and position without evidence of hydrocephalus. Mild paranasal sinus disease. Bilateral mastoid effusions. Right intraocular silicone. Left lens replacement. Normal flow voids are demonstrated in the carotid arteries and basilar artery. Endotracheal and nasogastric tube are seen. Fluid in the oropharynx likely related to intubation. IMPRESSION: No acute intracranial abnormality seen given motion limitations. For the purposes of billing and quality technician, this study was initially interpreted by teleradiology. There is no significant discrepancy. Dictated by: Hugh Zelaya M.D. The radiology attending physician has personally reviewed this study, and had reviewed and/or edited this written report and agrees with it. Electronically signed by: Matthew Alonso MD, PHD Flo Villagran MD IM MRI PROCEDURES Final Res ult * POCT glucose (09/16/2024 1:06 AM CAN FILLING ROOM SWEEPER) Glucose, POC 156 70 - 199 mg/dL Comment: For Glucose values <35 mg/dl when Hematocrit is >60 mg/dl,the test may not accurately detect significant hypoglycemia,and testing in the Laboratory should be considered if clinically indicated. Blood 09/16/2024 1:06 AM CAN FILLING ROOM SWEEPER 09/16/2024 1:06 AM CAN FILLING ROOM SWEEPER Flo Villagran MD LAB POCT ORDERABLES - DEVICE Final Result Performing Organization Address [facility] de Phone Number [facility] [address] [facility] [place] [address] * POCT glucose (09/16/2024 12:01 AM CAN FILLING ROOM SWEEPER) Glucose, POC 155 70 - 199 mg/dL Comment: For Glucose values <35 mg/dl when Hematocrit is >60 mg/dl,the test may not accurately detect significant hypoglycemia,and testing in the Laboratory should be considered if clinically indicated. Blood 09/16/2024 12:0 1 AM CAN FILLING ROOM SWEEPER 09/16/2024 12:01 AM CAN FILLING ROOM SWEEPER Flo Villagran MD LAB POCT ORDERABLES - DEVICE Final Result Performing Organization Address [facility] de Phone Number [facility] [address] [facility] [place] [address] * POCT glucose (09/15/2024 9:09 PM CAN FILLING ROOM SWEEPER) Glucose, POC 166 70 - 199 mg/dL Comment: For Glucose values <35 mg/dl when Hematocrit is >60 mg/dl,the test may not accurately detect significant hypoglycemia,and testing in the Laboratory should be considered if clinically indicated. Blood 09/15/2024 9:09 PM CAN FILLING ROOM SWEEPER 09/15/2024 9:09 PM CAN FILLING ROOM SWEEPER Flo Villagran MD LAB POCT ORDERABLES - DEVICE Final Result Performing Organization Address [facility] de Phone Number [facility] [address] [facility] [place] [address] * POCT glucose (09/15/2024 7:41 PM CAN FILLING ROOM SWEEPER) Glucose, POC 140 70 - 199 mg/dL Comment: For Glucose values <35 mg/dl when Hematocrit is >60 mg/dl,the test may not accurately detect significant hypoglycemia,and testing in the Laboratory should be considered if clinically indicated. Blood 09/15/2024 7:41 PM CAN FILLING ROOM SWEEPER 09/15/2024 7:41 PM CAN FILLING ROOM SWEEPER Flo Villagran MD LAB POCT ORDERABLES - DEVICE Final Result Performing Organization Address [facility] de Phone Number [facility] [address] [facility] [place] [address] * POCT glucose (09/15/2024 5:12 PM CAN FILLING ROOM SWEEPER) Glucose, POC 140 70 - 199 mg/dL Comment: For Glucose values <35 mg/dl when Hematocrit is >60 mg/dl,the test may not accurately detect significant hypoglycemia,and testing in the Laboratory should be considered if clinically indicated. Blood 09/15/2024 5:12 PM CAN FILLING ROOM SWEEPER 09/15/2024 5:12 PM CAN FILLING ROOM SWEEPER Result [facility] Flo Villagran MD LAB POCT ORDERABLES - DEVICE Final Result Performing Organization Address [facility] de Phone Number [facility] [address] [facility] [place] [address] * POCT glucose (09/15/2024 3:05 PM CAN FILLING ROOM SWEEPER) Glucose, POC 117 70 - 199 mg/dL Comment: For Glucose values <35 mg/dl when Hematocrit is >60 mg/dl,the test may not accurately detect significant hypoglycemia,and testing in the Laboratory should be considered if clinically indicated. Blood 09/15/2024 3:05 PM CAN FILLING ROOM SWEEPER 09/15/2024 3:05 PM CAN FILLING ROOM SWEEPER Flo Villagran MD LAB POCT ORDERABLES - DEVICE Final Result Performing Organization Address [facility] Co de Phone Number [facility] [address] [facility] [place] [address] * (ABNORMAL) Aerobic culture and gram stain Sputum Sputum (09/15/2024 1:57 PM CAN FILLING ROOM SWEEPER) Direct Specimen Exam Stain: Moderate polymorphonuclear leukocytes seen. Many Gram Positive Cocci Report Final Report: Heavy growth of: Staphylococcus aureus, methicillin susceptible Light growth normal sukhdev (.) [facility] Organism STAPHYLOCOCCUS AUREUS, METHICILLIN SUSCEPTIBLE [facility] Sputum (Sputum) 09/15/2024 1 :57 PM CAN FILLING ROOM SWEEPER 09/15/2024 2:10 PM CAN FILLING ROOM SWEEPER Narrative Organism Antibiotic Method Susceptibility Staphylococcus aureus, methicillin susceptible Cefazolin (ROBERTO CARLOS) INTERPRETATION Susceptible Staphylococcus aureus, methicillin susceptible Clindamycin (ROBERTO CARLOS) INTERPRETATION Resistant Staphylococcus aureus, methicillin susceptible Erythromycin (ROBERTO CARLOS) INTERPRETATION Resistant Staphylococcus aureus, methicillin susceptible Oxacillin (ROBERTO CARLOS) INTERPRETATION Susceptible Staphylococcus aureus, methicillin susceptible Tetracycline (ROBERTO CARLOS) INTERPRETATION Susceptible Staphylococcus aureus, methicillin susceptible Trimethoprim with Sulfamethoxazole (ROBERTO CARLOS) INTERPRETATION Susceptible Staphylococcus aureus, methicillin susceptible Vancomycin (ROBERTO CARLOS) INTERPRETATION 1 mcg/mL: Susceptible Flo Villagran MD LAB MICROBIOLOGY - GENERAL O RDERABLES Final Result [facility] [address] Department [place] [address] * TRANSESOPHAGEAL ECHO (DEMI) W DOPPLER/CF WO CONTRAST (09/15/2024 1:43 PM CAN FILLING ROOM SWEEPER) Pathologist [facility] LV EF 55-60 % CONS SCIMAGE Anatomical Region Laterality Modality Ultrasound 09/15/2024 12:4 5 PM CAN FILLING ROOM SWEEPER Narrative 09/15/2024 5:05 PM CAN FILLING ROOM SWEEPER [facility] [address] [place] [place] [address] TRANSESOPHAGEAL ECHOCARDIOGRAM Patient Name: BROOKE MARSHALL : 1975 (48y 8m) Gender: F Study Date: 09/15/2024 12:45:30 PM Ht(Inch): 65 Wt(Lb): 202.01 BSA: 2.05 Media Sales Consultant: Location: [id number] Order Provider: NILSON DUBOSE BMI: 33.61 BP: 138/71 Ref Provider: NILSON DUBOSE - PROCEDURES: Transesophageal Echo Report: Transesophageal echocardiogram including 2D imaging, spectral doppler and color doppler was performed bedside. The procedure was monitored with automatic blood pressure monitoring, ECG tracings, and pulse oximetry. Sedation was achieved by anesthesia using Propofol IV. The transesophageal probe was placed in the esophagus posterior to the heart without any complications. The patient tolerated the procedure well. INDICATIONS: Bacteremia. MEASUREMENTS: 2D/MM Value Range Estimated EF 55-60 % 2D/MM Value Range - FINDINGS: BP: Blood pressure: 138/71 mmHg. Left Ventricle: Normal global and regional left ventricular systolic function. Ejection Fraction is estimated to be 55-60 %. Right Ventricle: Normal right ventricular size. Normal right ventricular systolic function. Left Atrium: The left atrium is normal in size. LA Appendage: No LEONIE thrombus seen. Right Atrium: The right atrium is normal in size. Atrial Septum: Saline contrast study negative for R to L shunt. Thickening of the interatrial septum most c/w lipomatous hypertrophy. Mitral Valve: Normal appearance of the mitral valve. Trace mitral valve regurgitation. Aortic Valve: Normal appearance and function of the aortic valve. Trileaflet aortic valve. Tricuspid Valve: Normal appearance and function with trace (physiologic) regurgitation of the tricuspid valve. Pulmonic Valve: Normal pulmonic valve appearance and function with trace (physiologic) regurgitation. Pericardium: Normal pericardium with no significant pericardial effusion. Aorta: Normal caliber aortic root. Ascending aorta is normal in size. Descending aorta is normal. CONCLUSIONS: 1. Normal global and regional left ventricular systolic function. Ejection Fraction is estimated to be 55-60 %. 2. Normal right ventricular size. Normal right ventricular systolic function. 3. No evidence of intracardiac vegetation. Electronically Signed By: Nilson Dubose [facility] Card 09/15/2024 5:05:10 PM CAN FILLING ROOM SWEEPER Procedure Note Nilson Dubose MD - 09/15/2024 [facility] [address] [place] [address] TRANSESOPHAGEAL ECHOCARDIOGRAM Patient Name: BROOKE MARSHALL : 1975 (48y 8m) Gender: F Study Date: 09/15/2024 12:45:30 PM Ht(Inch): 65 Wt(Lb): 202.01 BSA: 2.05 Media Sales Consultant: Location: [id number] Order Provider: NILSON DUBOSE BMI: 33.61 BP: 138/71 Ref Provider: NILSON DUBOSE - PROCEDURES: Transesophageal Echo Report: Transesophageal echocardiogram including 2Dimaging, spectral doppler and color doppler was performed bedside. The procedurewas monitored with automatic blood pressure monitoring, ECG tracings, and pulseoximetry. Sedation was achieved by anesthesia using Propofol IV. The transesophageal probe wasplaced in the esophagus posterior to the heart without any complications. The patienttolerated the procedure well. INDICATIONS: Bacteremia. MEASUREMENTS: 2D/MM Value Range Estimated EF 55-60 % 2D/MM Value Range - FINDINGS: BP: Blood pressure: 138/71 mmHg. Left Ventricle: Normal global and regional left ventricular systolicfunction. Ejection Fraction is estimated to be 55-60 %. Right Ventricle: Normal right ventricular size. Normal right ventricularsystolic function. Left Atrium: The left atrium is normal in size. LA Appendage: No LEONIE thrombus seen. Right Atrium: The right atrium is normal in size. Atrial Septum: Saline contrast study negative for R to L shunt. Thickeningof the interatrial septum most c/w lipomatous hypertrophy. Mitral Valve: Normal appearance of the mitral valve. Trace mitral valveregurgitation. Aortic Valve: Normal appearance and function of the aortic valve.Trileaflet aortic valve. Tricuspid Valve: Normal appearance and function with trace (physiologic)regurgitation of the tricuspid valve. Pulmonic Valve: Normal pulmonic valve appearance and function with trace(physiologic) regurgitation. Pericardium: Normal pericardium with no significant pericardialeffusion. Aorta: Normal caliber aortic root. Ascending aorta is normal in size.Descending aorta is normal. CONCLUSIONS: 1. Normal global and regional left ventricular systolic function. EjectionFraction is estimated to be 55-60 %. 2. Normal right ventricular size. Normal right ventricular systolicfunction. 3. No evidence of intracardiac vegetation. Electronically Signed By: Nilson Dubose [facility] Card 09/15/2024 5:05:10 PM CAN FILLING ROOM SWEEPER Nilson Dubose MD CV ECHO PROCEDURES Final Result * POCT glucose (09/15/2024 1:05 PM CAN FILLING ROOM SWEEPER) [facility] Glucose, POC 151 70 - 199 mg/dL Comment: For Glucose values <35 mg/dl when Hematocrit is >60 mg/dl,the test may not accurately detect significant hypoglycemia,and testing in the Laboratory should be considered if clinically indicated. Blood 09/15/2024 1:05 PM CAN FILLING ROOM SWEEPER 09/15/2024 1:05 PM CAN FILLING ROOM SWEEPER us Flo Villagran MD LAB POCT ORDERABLES - DEVICE Final Result [facility] [address] [place] [address] * X-ray chest 1 view (09/15/2024 11:41 AM CAN FILLING ROOM SWEEPER) Anatomical Region Laterality Modality Body, Chest N/A Computed Radiogr aphy 09/15/2024 12:0 0 PM CAN FILLING ROOM SWEEPER Addenda Addendum by Cira Mancilla MD on 09/15/2024 1:17 PM CAN FILLING ROOM SWEEPER Communicated to Dr. Villagran who confirmed that the tube has been pulled back. Dr. Mancilla on 09/15/2024 at 1:15pm. Electronically signed by: Cira Mancilla M.D. Impressions 09/15/2024 12:00 PM CAN FILLING ROOM SWEEPER FINDINGS and IMPRESSION: Endotracheal tube terminates in the right bronchus, recommend withdrawal by about 6 cm. Feeding tube courses below the imaged [id number], past the GE junction. Increased airspace opacities in the left lung and increased prominence of right upper perihilar airspace opacities may represent progressive pneumonia, to be correlated clinically. Electronically signed by: Cira Mancilla M.D. Narrative 09/15/2024 12:00 PM CAN FILLING ROOM SWEEPER EXAMINATION: XR CHEST 1 VIEW COMPARISON: 09/15/2024 HISTORY: For endotracheal tube position Procedure Note Cira Mancilla MD - 09/15/2024 EXAMINATION: XR CHEST 1 VIEW COMPARISON: 09/15/2024 HISTORY: For endotracheal tube position IMPRESSION: FINDINGS and IMPRESSION: Endotracheal tube terminates in the right bronchus, recommend withdrawal by about 6 cm. Feeding tube courses below the imaged [id number], past the GE junction. Increased airspace opacities in the left lung and increased prominence of right upper perihilar airspace opacities may represent progressive pneumonia, to be correlated clinically. Electronically signed by: Cira Mancilla M.D. Flo Villagran MD IMG XR PROCEDURES Edited Res ult - Final * (ABNORMAL) Blood gas, arterial (09/15/2024 11:34 AM CAN FILLING ROOM SWEEPER) pH, Art 7.32(L) 7.35 - 7.45 PCO2, Arterial 48(H) 35 - 45 mmHg [facility] PO2, Arterial 264(H) 83 - 108 mmHg [facility] HCO3 Art (Calculated) 25 20 - 30 mmol/L [facility] BE, art -2 mmol/L [facility] Comment: Interpretive Data No Reference Range Established Current Interpretive Data was last revised on 2017 O2 Sat Art (Calculated) 100(H) 94 - 98 % [facility] Blood 09/15/2024 11:3 4 AM CAN FILLING ROOM SWEEPER 09/15/2024 11:36 AM CAN FILLING ROOM SWEEPER us Flo Villagran MD LAB BLOOD ORDERABLES Final R esult Performing Organization Address [facility]/ZIP Co de Phone Number [facility] [address] Department [place] [address] * POCT glucose (09/15/2024 11:07 AM CAN FILLING ROOM SWEEPER) [facility] Signature Glucose, POC 183 70 - 199 mg/dL Comment: For Glucose values <35 mg/dl when Hematocrit is >60 mg/dl,the test may not accurately detect significant hypoglycemia,and testing in the Laboratory should be considered if clinically indicated. Blood 09/15/2024 11:0 7 AM CAN FILLING ROOM SWEEPER 09/15/2024 11:07 AM CAN FILLING ROOM SWEEPER us Flo Villagran MD LAB POCT ORDERABLES - DEVICE Final Result Performing Organization Address [facility] Co de Phone Number [facility] [address] Department [place] [address] * INTUBATION (09/15/2024 10:31 AM CAN FILLING ROOM SWEEPER) Narrative Flo Villagran MD - 09/15/2024 10:31 AM CAN FILLING ROOM SWEEPER Flo Villagran MD 09/15/2024 11:11 AM Intubation Date/Time: 09/15/2024 10:31 AM Performed by: Flo Villagran MD Authorized by: Flo Villagran MD Intubation Note: Decreased level of consciousness and need for MRI, possible DEMI, therefore she was sedated and after direct laryngoscopy # 8 ETT inserted to 24 cm from the lips. Patient was bagged and tube position confirmed by auscultation, EtCO2 and CXR. Ventilator circuit connected to ET. us Flo Villagran MD IN CLINIC/BEDSIDE ORDERABLES Edited Result - Final * (ABNORMAL) POCT glucose (09/15/2024 9:16 AM CAN FILLING ROOM SWEEPER) Glucose, POC 200(H) 70 - 199 mg/dL Comment: For Glucose values <35 mg/dl when Hematocrit is >60 mg/dl,the test may not accurately detect significant hypoglycemia,and testing in the Laboratory should be considered if clinically indicated. Blood 09/15/2024 9:16 AM CAN FILLING ROOM SWEEPER 09/15/2024 9:16 AM CAN FILLING ROOM SWEEPER Flo Villagran MD LAB POCT ORDERABLES - DEVICE Final Result Performing Organization Address [facility] Co de Phone Number [facility] [address] [facility] [address] [place], [place] [id number] * POCT glucose (09/15/2024 7:06 AM CAN FILLING ROOM SWEEPER) Glucose, POC 186 70 - 199 mg/dL Comment: For Glucose values <35 mg/dl when Hematocrit is >60 mg/dl,the test may not accurately detect significant hypoglycemia,and testing in the Laboratory should be considered if clinically indicated. Blood 09/15/2024 7:06 AM CAN FILLING ROOM SWEEPER 09/15/2024 7:06 AM CAN FILLING ROOM SWEEPER Flo Villagran MD LAB POCT ORDERABLES - DEVICE Final Result Performing Organization Address [facility] Co de Phone Number [facility] [address] [facility] [place] [address] * POCT glucose (09/15/2024 5:27 AM CAN FILLING ROOM SWEEPER) Glucose, POC 187 70 - 199 mg/dL Comment: For Glucose values <35 mg/dl when Hematocrit is >60 mg/dl,the test may not accurately detect significant hypoglycemia,and testing in the Laboratory should be considered if clinically indicated. Blood 09/15/2024 5:27 AM CAN FILLING ROOM SWEEPER 09/15/2024 5:27 AM CAN FILLING ROOM SWEEPER Flo Villagran MD LAB POCT ORDERABLES - DEVICE Final Result Performing Organization Address [facility] Co de Phone Number [facility] [address] [facility] [place] [address] * POCT glucose (09/15/2024 3:51 AM CAN FILLING ROOM SWEEPER) Glucose, POC 189 70 - 199 mg/dL Comment: For Glucose values <35 mg/dl when Hematocrit is >60 mg/dl,the test may not accurately detect significant hypoglycemia,and testing in the Laboratory should be considered if clinically indicated. Blood 09/15/2024 3:51 AM CAN FILLING ROOM SWEEPER 09/15/2024 3:51 AM CAN FILLING ROOM SWEEPER us Flo Villagran MD LAB POCT ORDERABLES - DEVICE Final Result Performing Organization Address [facility] de Phone Number [facility] [address] [facility] [place] [address] * (ABNORMAL) aPTT (09/15/2024 3:48 AM CAN FILLING ROOM SWEEPER) aPTT 49(H) 28 - 38 sec Comment: Interpretive Data Heparin therapeutic range: 66.0 - 100.0 seconds. Range based on correlation with therapeutic heparin activity range of 0.3 - 0.7 Units/mL. Current interpretive data was last revised on 2023. Blood 09/15/2024 3:48 AM CAN FILLING ROOM SWEEPER 09/15/2024 3:52 AM CAN FILLING ROOM SWEEPER us Abeba Ash MD LAB BLOOD ORDERABLES Final R esult Performing Organization Address [facility] de Phone Number [facility] [address] [facility] [place] [address] * XR Chest 1 View (09/15/2024 3:41 AM CAN FILLING ROOM SWEEPER) Anatomical Region Laterality Modality Body, Chest N/A Computed Radiogr aphy 09/15/2024 7:33 AM CAN FILLING ROOM SWEEPER Impressions 09/15/2024 7:33 AM CAN FILLING ROOM SWEEPER Comparison is made to 09/14/2024. A nasogastric tube tip is located with diaphragm, not included [id number]. There is slightly improving aeration within the left midlung and lung base which may represent improving pneumonia. The right mid to upper lung there is a persistent area of nodular consolidation which is favored to be infectious as well. No pleural effusion. No pneumothorax. Stable heart size. Electronically signed by: Ruiz Coles M.D. Narrative 09/15/2024 7:33 AM CAN FILLING ROOM SWEEPER Examination: Chest 1 view Procedure Note Ruiz Coles MD - 09/15/2024 Examination: Chest 1 view IMPRESSION: Comparison is made to 09/14/2024. A nasogastric tube tip is located with diaphragm, not included [id number]. There is slightly improving aeration within the left midlung and lung base which may represent improving pneumonia. The right mid to upper lung there is a persistent area of nodular consolidation which is favored to be infectious as well. No pleural effusion. No pneumothorax. Stable heart size. Electronically signed by: Ruiz Coles M.D. Flo Villagran MD IMG XR PROCEDURES Final Resu lt * (ABNORMAL) eGFR (09/15/2024 1:50 AM CAN FILLING ROOM SWEEPER) eGFR 40(L) >=60 mL/min/1. 73 m2 Comment: Interpretive Data Reference Interval Normal >/= 90 mL/min/1.73m2 Mildly decreased* 60 - 89 mL/min/1.73m2 Mildly to moderately decreased 45 - 59 mL/min/1.73m2 Moderately to severely decreased 30 - 44 mL/min/1.73m2 Severely decreased 15 - 29 mL/min/1.73m2 Kidney Failure < 15 mL/min/1.73m2 *Relative to young adult level Estimated glomerular [...] interpretive data was last reviewed 2021. Blood 09/15/2024 1:50 AM CAN FILLING ROOM SWEEPER 09/15/2024 2:27 AM CAN FILLING ROOM SWEEPER Flo Villagran MD LAB BLOOD ORDERABLES Final R esult Performing Organization Address City/[facility]/ZIP Co de Phone Number [facility] [address] [place] [address] * (ABNORMAL) CBC without differential (09/15/2024 1:50 AM CAN FILLING ROOM SWEEPER) WBC 5.0 3.8 - 9.9 K/cumm Hgb 9.9(L) 11.9 - 15.5 g/dL [facility] Hct 31.5(L) 35.6 - 45.5 % [facility] Plt 67(L) 150 - 400 K/cumm [facility] Comment:Automated count conf irmed by smear review. MPV 13.3(H) 9.1 - 12.3 fL [facility] RBC 3.39(L) 3.90 - 5.20 M/cumm [facility] MCV 92.9 81.3 - 96.4 fL [facility] MCH 29.2 27.1 - 33.3 pg [facility] MCHC 31.4(L) 32.3 - 35.7 g/dL [facility] RDW CV 15.0(H) 11.1 - 14.9 % [facility] RDW SD 51.5(H) 35.7 - 48.1 fL [facility] NRBC abs 0.00 0.00 - 0.01 K/cumm [facility] Blood 09/15/2024 1:50 AM CAN FILLING ROOM SWEEPER 09/15/2024 2:27 AM CAN FILLING ROOM SWEEPER Flo Villagran MD LAB BLOOD ORDERABLES Final R esult Performing Organization Address City/[facility]/ZIP Co de Phone Number [facility] [address] [place] [address] * (ABNORMAL) Phosphorus (09/15/2024 1:50 AM CAN FILLING ROOM SWEEPER) Pathologist [facility] Phosphorus, pl 1.7(L) 2.3 - 4.5 mg/dL Blood 09/15/2024 1:50 AM CAN FILLING ROOM SWEEPER 09/15/2024 2:27 AM CAN FILLING ROOM SWEEPER Flo Villagran MD LAB BLOOD ORDERABLES Final R esult Performing Organization Address City/[facility]/ZIP Co de Phone Number [facility] [address] [facility] [place] [address] * Magnesium (09/15/2024 1:50 AM CAN FILLING ROOM SWEEPER) Pathologist [facility] Magnesium 2.4 1.4 - 2.5 mg/dL Comment:Reviewed Blood 09/15/2024 1:50 AM CAN FILLING ROOM SWEEPER 09/15/2024 2:27 AM CAN FILLING ROOM SWEEPER Flo Villagran MD LAB BLOOD ORDERABLES Final R esult Performing Organization Address [facility] Co de Phone Number [facility] [address] [facility] [place] [address] * Bilirubin, direct (09/15/2024 1:50 AM CAN FILLING ROOM SWEEPER) Pathologist [facility] Bilirubin, direct 0.3 0.1 - 0.3 mg/dL Blood 09/15/2024 1:50 AM CAN FILLING ROOM SWEEPER 09/15/2024 2:27 AM CAN FILLING ROOM SWEEPER Flo Villagran MD LAB BLOOD ORDERABLES Final R esult Performing Organization Address [facility] Co de Phone Number [facility] [address] [facility] [place] [address] * (ABNORMAL) Comprehensive metabolic panel (09/15/2024 1:50 AM CAN FILLING ROOM SWEEPER) Pathologist [facility] Sodium 147(H) 135 - 145 mmol/L Potassium, pl 3.1(L) 3.3 - 4.9 mmol/L [facility] Chloride 110 97 - 110 mmol/L [facility] CO2 24 22 - 32 mmol/L [facility] Anion gap 13 2 - 15 mmol/L [facility] BUN 44(H) 6 - 25 mg/dL [facility] Creatinine 1.56(H) 0.60 - 1.10 mg/dL [facility] Glucose 179 70 - 199 mg/dL [facility] Comment: Interpretive Data Fasting glucose >/= 126 mg/dl is diagnostic for diabetes. Fasting is defined as no caloric intake for at least 8 hours. Fasting glucose between 100 mg/dl to 125 mg/dl is diagnostic of prediabetes. In a patient with classic symptoms of hyperglycemia or hyperglycemic crisis, a random glucose >/= 200 mg/dl is diagnostic for diabetes. In the absence of unequivocal hyperglycemia, results should be confirmed by repeat testing. The classification and Diagnosis of Diabetes Diabetes Care 2021; 46: S19-S40. Current interpretive data was last revised 2022. Calcium 8.5 8.5 - 10.3 mg/dL [facility] Bilirubin, total 0.5 0.1 - 1.2 mg/dL [facility] Protein, pl 5.6(L) 6.5 - 8.5 g/dL [facility] Albumin 2.4(L) 3.5 - 5.0 g/dL [facility] Alk phos 77 40 - 130 Units/L [facility] ALT 23 7 - 45 Units/L [facility] AST 35 10 - 45 Units/L [facility] Blood 09/15/2024 1:50 AM CAN FILLING ROOM SWEEPER 09/15/2024 2:27 AM CAN FILLING ROOM SWEEPER us Flo Villagran MD LAB BLOOD ORDERABLES Final R esult [facility] [address] Department [place] [address] * POCT glucose (09/15/2024 12:53 AM CAN FILLING ROOM SWEEPER) [facility] Glucose, POC 166 70 - 199 mg/dL Comment: For Glucose values <35 mg/dl when Hematocrit is >60 mg/dl,the test may not accurately detect significant hypoglycemia,and testing in the Laboratory should be considered if clinically indicated. Blood 09/15/2024 12:5 3 AM CAN FILLING ROOM SWEEPER 09/15/2024 12:53 AM CAN FILLING ROOM SWEEPER Flo Villagran MD LAB POCT ORDERABLES - DEVICE Final Result Performing Organization Address [facility] Co de Phone Number [facility] [address] [place] [address] * POCT glucose (09/14/2024 11:15 PM CAN FILLING ROOM SWEEPER) Glucose, POC 178 70 - 199 mg/dL Comment: For Glucose values <35 mg/dl when Hematocrit is >60 mg/dl,the test may not accurately detect significant hypoglycemia,and testing in the Laboratory should be considered if clinically indicated. Blood 09/14/2024 11:1 5 PM CAN FILLING ROOM SWEEPER 09/14/2024 11:15 PM CAN FILLING ROOM SWEEPER Flo Villagran MD LAB POCT ORDERABLES - DEVICE Final Result Performing Organization Address [facility] Co de Phone Number [facility] [address] [place] [address] * (ABNORMAL) aPTT (09/14/2024 9:19 PM CAN FILLING ROOM SWEEPER) aPTT 57(H) 28 - 38 sec Comment: Interpretive Data Heparin therapeutic range: 66.0 - 100.0 seconds. Range based on correlation with therapeutic heparin activity range of 0.3 - 0.7 Units/mL. Current interpretive data was last revised on 2023. Blood 09/14/2024 9:19 PM CAN FILLING ROOM SWEEPER 09/14/2024 9:19 PM CAN FILLING ROOM SWEEPER Flo Villagran MD LAB BLOOD ORDERABLES Final R esult Performing Organization Address [facility] Co de Phone Number [facility] [address] [facility] [place] [address] * POCT glucose (09/14/2024 9:16 PM CAN FILLING ROOM SWEEPER) Glucose, POC 162 70 - 199 mg/dL Comment: For Glucose values <35 mg/dl when Hematocrit is >60 mg/dl,the test may not accurately detect significant hypoglycemia,and testing in the Laboratory should be considered if clinically indicated. Blood 09/14/2024 9:16 PM CAN FILLING ROOM SWEEPER 09/14/2024 9:16 PM CAN FILLING ROOM SWEEPER Flo Villagran MD LAB POCT ORDERABLES - DEVICE Final Result Performing Organization Address [facility] Co de Phone Number [facility] [address] [facility] [place] [address] * POCT glucose (09/14/2024 7:20 PM CAN FILLING ROOM SWEEPER) Glucose, POC 171 70 - 199 mg/dL Comment: For Glucose values <35 mg/dl when Hematocrit is >60 mg/dl,the test may not accurately detect significant hypoglycemia,and testing in the Laboratory should be considered if clinically indicated. Blood 09/14/2024 7:20 PM CAN FILLING ROOM SWEEPER 09/14/2024 7:20 PM CAN FILLING ROOM SWEEPER Flo Villagran MD LAB POCT ORDERABLES - DEVICE Final Result Performing Organization Address [facility] Co de Phone Number [facility] [address] [facility] [place] [address] * POCT glucose (09/14/2024 6:16 PM CAN FILLING ROOM SWEEPER) Glucose, POC 183 70 - 199 mg/dL Comment: For Glucose values <35 mg/dl when Hematocrit is >60 mg/dl,the test may not accurately detect significant hypoglycemia,and testing in the Laboratory should be considered if clinically indicated. Blood 09/14/2024 6:16 PM CAN FILLING ROOM SWEEPER 09/14/2024 6:16 PM CAN FILLING ROOM SWEEPER Flo Villagran MD LAB POCT ORDERABLES - DEVICE Final Result Performing Organization Address [facility] de Phone Number [facility] [address] [facility] [place] [address] * POCT glucose (09/14/2024 4:55 PM CAN FILLING ROOM SWEEPER) Glucose, POC 186 70 - 199 mg/dL Comment: For Glucose values <35 mg/dl when Hematocrit is >60 mg/dl,the test may not accurately detect significant hypoglycemia,and testing in the Laboratory should be considered if clinically indicated. Blood 09/14/2024 4:55 PM CAN FILLING ROOM SWEEPER 09/14/2024 4:55 PM CAN FILLING ROOM SWEEPER Flo Villagran MD LAB POCT ORDERABLES - DEVICE Final Result Performing Organization Address [facility] de Phone Number [facility] [address] [facility] [place] [address] * POCT glucose (09/14/2024 4:10 PM CAN FILLING ROOM SWEEPER) Glucose, POC 179 70 - 199 mg/dL Comment: For Glucose values <35 mg/dl when Hematocrit is >60 mg/dl,the test may not accurately detect significant hypoglycemia,and testing in the Laboratory should be considered if clinically indicated. Blood 09/14/2024 4:10 PM CAN FILLING ROOM SWEEPER 09/14/2024 4:10 PM CAN FILLING ROOM SWEEPER Flo Villagran MD LAB POCT ORDERABLES - DEVICE Final Result Performing Organization Address [facility] de Phone Number [facility] [address] [facility] [address] [place], [place] [id number] * POCT glucose (09/14/2024 3:03 PM CAN FILLING ROOM SWEEPER) Glucose, POC 179 70 - 199 mg/dL Comment: For Glucose values <35 mg/dl when Hematocrit is >60 mg/dl,the test may not accurately detect significant hypoglycemia,and testing in the Laboratory should be considered if clinically indicated. Blood 09/14/2024 3:03 PM CAN FILLING ROOM SWEEPER 09/14/2024 3:03 PM CAN FILLING ROOM SWEEPER Flo Villagran MD LAB POCT ORDERABLES - DEVICE Final Result Performing Organization Address [facility] Co de Phone Number [facility] [address] [place], [place] [phone] * (ABNORMAL) eGFR (09/14/2024 1:05 PM CAN FILLING ROOM SWEEPER) eGFR 41(L) >=60 mL/min/1. 73 m2 Comment: Interpretive Data Reference Interval Normal >/= 90 mL/min/1.73m2 Mildly decreased* 60 - 89 mL/min/1.73m2 Mildly to moderately decreased 45 - 59 mL/min/1.73m2 Moderately to severely decreased 30 - 44 mL/min/1.73m2 Severely decreased 15 - 29 mL/min/1.73m2 Kidney Failure < 15 mL/min/1.73m2 *Relative to young adult level Estimated glomerular [...] interpretive data was last reviewed 2021. Blood 09/14/2024 1:05 PM CAN FILLING ROOM SWEEPER 09/14/2024 1:20 PM CAN FILLING ROOM SWEEPER Flo Villagran MD LAB BLOOD ORDERABLES Final R esult Performing Organization Address [facility]/ZIP Co de Phone Number [facility] [address] [employer] [place], [place] [id number] * (ABNORMAL) aPTT (09/14/2024 1:05 PM CAN FILLING ROOM SWEEPER) aPTT 112(H) 28 - 38 sec Comment: Interpretive Data Heparin therapeutic range: 66.0 - 100.0 seconds. Range based on correlation with therapeutic heparin activity range of 0.3 - 0.7 Units/mL. Current interpretive data was last revised on 2023. Blood 09/14/2024 1:05 PM CAN FILLING ROOM SWEEPER 09/14/2024 1:19 PM CAN FILLING ROOM SWEEPER Flo Villagran MD LAB BLOOD ORDERABLES Final R esult [facility] [address] Department [place] [address] * (ABNORMAL) Renal function panel (09/14/2024 1:05 PM CAN FILLING ROOM SWEEPER) Pathologist [facility] Sodium 152(H) 135 - 145 mmol/L Potassium, pl 3.3 3.3 - 4.9 mmol/L [facility] Chloride 115(H) 97 - 110 mmol/L [facility] CO2 25 22 - 32 mmol/L [facility] Anion gap 12 2 - 15 mmol/L [facility] BUN 45(H) 6 - 25 mg/dL [facility] Creatinine 1.54(H) 0.60 - 1.10 mg/dL [facility] Glucose 177 70 - 199 mg/dL [facility] Comment: Interpretive Data Fasting glucose >/= 126 mg/dl is diagnostic for diabetes. Fasting is defined as no caloric intake for at least 8 hours. Fasting glucose between 100 mg/dl to 125 mg/dl is diagnostic of prediabetes. In a patient with classic symptoms of hyperglycemia or hyperglycemic crisis, a random glucose >/= 200 mg/dl is diagnostic for diabetes. In the absence of unequivocal hyperglycemia, results should be confirmed by repeat testing. The classification and Diagnosis of Diabetes Diabetes Care 202; 46: S19-S40. Current interpretive data was last revised 2022. Calcium 8.8 8.5 - 10.3 mg/dL [facility] Phosphorus, pl 2.6 2.3 - 4.5 mg/dL [facility] Albumin 2.5(L) 3.5 - 5.0 g/dL [facility] Blood 09/14/2024 1:05 PM CAN FILLING ROOM SWEEPER 09/14/2024 1:20 PM CAN FILLING ROOM SWEEPER Flo Villagran MD LAB BLOOD ORDERABLES Final R esult Performing Organization Address [facility] Co de Phone Number [facility] [address] [place] [address] * POCT glucose (09/14/2024 12:55 PM CAN FILLING ROOM SWEEPER) Glucose, POC 168 70 - 199 mg/dL Comment: For Glucose values <35 mg/dl when Hematocrit is >60 mg/dl,the test may not accurately detect significant hypoglycemia,and testing in the Laboratory should be considered if clinically indicated. Blood 09/14/2024 12:5 5 PM CAN FILLING ROOM SWEEPER 09/14/2024 12:55 PM CAN FILLING ROOM SWEEPER Flo Villagran MD LAB POCT ORDERABLES - DEVICE Final Result Performing Organization Address [facility] de Phone Number [facility] [address] [facility] [place] [address] * POCT glucose (09/14/2024 12:01 PM CAN FILLING ROOM SWEEPER) Glucose, POC 170 70 - 199 mg/dL Comment: For Glucose values <35 mg/dl when Hematocrit is >60 mg/dl,the test may not accurately detect significant hypoglycemia,and testing in the Laboratory should be considered if clinically indicated. Blood 09/14/2024 12:0 1 PM CAN FILLING ROOM SWEEPER 09/14/2024 12:01 PM CAN FILLING ROOM SWEEPER Flo Villagran MD LAB POCT ORDERABLES - DEVICE Final Result Performing Organization Address [facility] Co de Phone Number [facility] [address] [place] [address] * POCT glucose (09/14/2024 11:05 AM CAN FILLING ROOM SWEEPER) Glucose, POC 188 70 - 199 mg/dL Comment: For Glucose values <35 mg/dl when Hematocrit is >60 mg/dl,the test may not accurately detect significant hypoglycemia,and testing in the Laboratory should be considered if clinically indicated. Blood 09/14/2024 11:0 5 AM CAN FILLING ROOM SWEEPER 09/14/2024 11:05 AM CAN FILLING ROOM SWEEPER Flo Villagran MD LAB POCT ORDERABLES - DEVICE Final Result Performing Organization Address [facility]/ZIP Co de Phone Number [facility] [address] Department [place] [address] * POCT glucose (09/14/2024 10:04 AM CAN FILLING ROOM SWEEPER) [facility] Glucose, POC 195 70 - 199 mg/dL Comment: For Glucose values <35 mg/dl when Hematocrit is >60 mg/dl,the test may not accurately detect significant hypoglycemia,and testing in the Laboratory should be considered if clinically indicated. Blood 09/14/2024 10:0 4 AM CAN FILLING ROOM SWEEPER 09/14/2024 10:04 AM CAN FILLING ROOM SWEEPER Flo Villagran MD LAB POCT ORDERABLES - DEVICE Final Result Performing Organization Address [facility] Co de Phone Number [facility] [address] [place] [address] * (ABNORMAL) Blood culture Blood (09/14/2024 9:42 AM CAN FILLING ROOM SWEEPER) [facility] Direct Specimen Exam Stain: Gram Positive Cocci in clusters Test result called to and read back by Ana Maria Grier RN on 09/15/2024 05:37:49 by MARCELL. Report Final Report: Staphylococcus aureus, methicillin susceptible Susceptibility reported on this organism on previous culture [id number] (.) [facility] Organism STAPHYLOCOCCUS AUREUS, METHICILLIN SUSCEPTIBLE [facility] Blood 09/14/2024 9:42 AM CAN FILLING ROOM SWEEPER 09/14/2024 9:50 AM CAN FILLING ROOM SWEEPER Narrative [facility] - 09/16/2024 10:13 AM CAN FILLING ROOM SWEEPER From a different site than #1. Interpretive Data 1. Blood cultures are incubated and monitored continuously for 5 days (120 hours). The first negative report is issued within 24 hours of receipt in the laboratory. 2. All positive cultures are resulted and called to physicians/care providers as soon as they are detected. 3. A rapid molecular test for organism identification may be performed using the [employer] Blood Culture Identification panel. This assay detects microbial DNA in a blood culture broth. This assay has been cleared by the [facility] Food and Drug Administration and its performance characteristics have been verified by the [facility]. Interpretive data was last revised on September 11, 2022. Flo Villagran MD LAB MICROBIOLOGY - GENERAL O RDERABLES Final Result Performing Organization Address [facility] Co de Phone Number [facility] [address] [place], [place] [id number] * Blood culture Blood (09/14/2024 9:42 AM CAN FILLING ROOM SWEEPER) Report Final Report: No growth Blood 09/14/2024 9:42 AM CAN FILLING ROOM SWEEPER 09/14/2024 12:44 PM CAN FILLING ROOM SWEEPER Narrative [facility] - 09/19/2024 1:00 PM CAN FILLING ROOM SWEEPER Interpretive Data 1. Blood cultures are incubated and monitored continuously for 5 days (120 hours). The first negative report is issued within 24 hours of receipt in the laboratory. 2. All positive cultures are resulted and called to physicians/care providers as soon as they are detected. 3. A rapid molecular test for organism identification may be performed using the [employer] Blood Culture Identification panel. This assay detects microbial DNA in a blood culture broth. This assay has been cleared by the [place] Food and Drug Administration and its performance characteristics have been verified by the [facility]. Interpretive data was last revised on September 11, 2022. Flo Villagran MD LAB MICROBIOLOGY - GENERAL O RDERABLES Final Result Performing Organization Address [facility]/ZIP Co de Phone Number [facility] [address] [place] [address] * (ABNORMAL) POCT glucose (09/14/2024 8:56 AM CAN FILLING ROOM SWEEPER) Glucose, POC 228(H) 70 - 199 mg/dL Comment: For Glucose values <35 mg/dl when Hematocrit is >60 mg/dl,the test may not accurately detect significant hypoglycemia,and testing in the Laboratory should be considered if clinically indicated. Blood 09/14/2024 8:56 AM CAN FILLING ROOM SWEEPER 09/14/2024 8:56 AM CAN FILLING ROOM SWEEPER Flo Villagran MD LAB POCT ORDERABLES - DEVICE Final Result Performing Organization Address [facility] Co de Phone Number [facility] [address] [place], [place] [phone] * (ABNORMAL) Blood gas, arterial (09/14/2024 8:08 AM CAN FILLING ROOM SWEEPER) pH, Art 7.34(L) 7.35 - 7.45 PCO2, Arterial 45 35 - 45 mmHg [facility] PO2, Arterial 79(L) 83 - 108 mmHg [facility] HCO3 Art (Calculated) 24 20 - 30 mmol/L [facility] BE, art -2 mmol/L [facility] Comment: Interpretive Data No Reference Range Established Current Interpretive Data was last revised on 2017 O2 Sat Art (Calculated) 95 94 - 98 % [facility] Blood 09/14/2024 8:08 AM CAN FILLING ROOM SWEEPER 09/14/2024 8:11 AM CAN FILLING ROOM SWEEPER Flo Villagran MD LAB BLOOD ORDERABLES Final R esult Performing Organization Address [facility]/ZIP Co de Phone Number [facility] [address] [facility] [place] [address] * (ABNORMAL) POCT glucose (09/14/2024 7:50 AM CAN FILLING ROOM SWEEPER) Glucose, POC 235(H) 70 - 199 mg/dL Comment: For Glucose values <35 mg/dl when Hematocrit is >60 mg/dl,the test may not accurately detect significant hypoglycemia,and testing in the Laboratory should be considered if clinically indicated. Blood 09/14/2024 7:50 AM CAN FILLING ROOM SWEEPER 09/14/2024 7:50 AM CAN FILLING ROOM SWEEPER Flo Villagran MD LAB POCT ORDERABLES - DEVICE Final Result Performing Organization Address [facility] de Phone Number [facility] [address] [facility] [place] [address] * (ABNORMAL) aPTT (09/14/2024 6:06 AM CAN FILLING ROOM SWEEPER) aPTT >150(C) 28 - 38 sec Comment: Critical result called to and read back by Tatiana Sutton (RN) on 09/14/2024 07:20:52 CAN FILLING ROOM SWEEPER to [id number]. Specimen integrity checked. No clot Interpretive Data Heparin therapeutic range: 66.0 - 100.0 seconds. Range based on correlation with therapeutic heparin activity range of 0.3 - 0.7 Units/mL. Current interpretive data was last revised on 2023. Blood 09/14/2024 6:06 AM CAN FILLING ROOM SWEEPER 09/14/2024 6:23 AM CAN FILLING ROOM SWEEPER Abeba Ash MD LAB BLOOD ORDERABLES Final R esult Performing Organization Address [facility] de Phone Number [facility] [address] [facility] [place] [address] * (ABNORMAL) POCT glucose (09/14/2024 4:10 AM CAN FILLING ROOM SWEEPER) Glucose, POC 301(H) 70 - 199 mg/dL Comment: For Glucose values <35 mg/dl when Hematocrit is >60 mg/dl,the test may not accurately detect significant hypoglycemia,and testing in the Laboratory should be considered if clinically indicated. Blood 09/14/2024 4:10 AM CAN FILLING ROOM SWEEPER 09/14/2024 4:10 AM CAN FILLING ROOM SWEEPER Flo Villagran MD LAB POCT ORDERABLES - DEVICE Final Result [facility] [address] Department [place] [address] * XR Chest 1 View (09/14/2024 3:10 AM CAN FILLING ROOM SWEEPER) Anatomical Region Laterality Modality Body, Chest N/A Computed Radiogr aphy 09/14/2024 7:30 AM CAN FILLING ROOM SWEEPER Impressions 09/14/2024 7:30 AM CAN FILLING ROOM SWEEPER Comparison is made to prior chest radiograph dated 09/13/2024. Feeding tube terminates in the stomach. There are increased patchy opacities in the left greater than right lung bases. Findings are most consistent with pneumonia, possibly related to aspiration. No pleural effusion. No pneumothorax. Stable heart size. Electronically signed by: Pippa Sin M.D. Narrative 09/14/2024 7:30 AM CAN FILLING ROOM SWEEPER EXAMINATION: XR CHEST 1 VIEW Procedure Note Pippa Sin MD - 09/14/2024 EXAMINATION: XR CHEST 1 VIEW IMPRESSION: Comparison is made to prior chest radiograph dated 09/13/2024. Feeding tube terminates in the stomach. There are increased patchy opacities in the left greater than right lung bases. Findings are most consistent with pneumonia, possibly related to aspiration. No pleural effusion. No pneumothorax. Stable heart size. Electronically signed by: Pippa Sin M.D. Flo Villagran MD IMG XR PROCEDURES Final Resu lt * (ABNORMAL) eGFR (09/14/2024 1:59 AM CAN FILLING ROOM SWEEPER) eGFR 38(L) >=60 mL/min/1. 73 m2 Comment: Interpretive Data Reference Interval Normal >/= 90 mL/min/1.73m2 Mildly decreased* 60 - 89 mL/min/1.73m2 Mildly to moderately decreased 45 - 59 mL/min/1.73m2 Moderately to severely decreased 30 - 44 mL/min/1.73m2 Severely decreased 15 - 29 mL/min/1.73m2 Kidney Failure < 15 mL/min/1.73m2 *Relative to young adult level Estimated glomerular [...] interpretive data was last reviewed 2021. Blood 09/14/2024 1:59 AM CAN FILLING ROOM SWEEPER 09/14/2024 2:14 AM CAN FILLING ROOM SWEEPER us Flo Villagran MD LAB BLOOD ORDERABLES Final R esult [facility] [address] Department [place] [address] * (ABNORMAL) Manual Differential (09/14/2024 1:59 AM CAN FILLING ROOM SWEEPER) Cells Counted 125 Neutrophil abs 3.5 1.5 - 6.5 K/cumm [facility] Imm gran abs 0.1 0.0 - 0.1 K/cumm [facility] Lymphocyte abs 0.3(L) 0.8 - 3.3 K/cumm [facility] Monocyte abs 0.4 0.2 - 0.8 K/cumm [facility] Neutrophil pct 83.2 % [facility] Comment: Interpretive Data Percent cell count reference ranges are not reported, since discordance with absolute values may lead to misinterpretation of CBC data. Current Interpretive Data was last revised on 2017. Lymphocyte pct 6.4 % [facility] Comment: Interpretive Data Percent cell count reference ranges are not reported, since discordance with absolute values may lead to misinterpretation of CBC data. Current Interpretive Data was last revised on 2017. Monocyte pct 8.8 % [facility] Comment: Interpretive Data Percent cell count reference ranges are not reported, since discordance with absolute values may lead to misinterpretation of CBC data. Current Interpretive Data was last revised on 2017. Metamyelocyte pct 1.6(H) 0.0 - 0.0 % [facility] RBC morphology Present(A) [facility] Anisocytosis Slight(A) [facility] Poikilocytosis Moderate(A ) [facility] Echinocytes 3-7/HPF(A) [facility] Platelet estimate Decreased( A) [facility] Morphology scrn See Comment [facility] Comment:WBC: Toxic Vacuolati on present PLT: Platelet morphology normal Automated count not confirmed by smear review; See platelet estimate Blood 09/14/2024 1:59 AM CAN FILLING ROOM SWEEPER 09/14/2024 2:14 AM CAN FILLING ROOM SWEEPER Flo Vlilagran MD LAB BLOOD ORDERABLES Final R esult [facility] [address] Department [place] [address] * (ABNORMAL) CBC without differential (09/14/2024 1:59 AM CAN FILLING ROOM SWEEPER) WBC 4.2 3.8 - 9.9 K/cumm Hgb 11.1(L) 11.9 - 15.5 g/dL [facility] Hct 36.5 35.6 - 45.5 % [facility] Plt 71(L) 150 - 400 K/cumm [facility] Comment:no clot MPV 12.8(H) 9.1 - 12.3 fL [facility] RBC 3.85(L) 3.90 - 5.20 M/cumm [facility] MCV 94.8 81.3 - 96.4 fL [facility] MCH 28.8 27.1 - 33.3 pg [facility] MCHC 30.4(L) 32.3 - 35.7 g/dL [facility] RDW CV 14.8 11.1 - 14.9 % [facility] RDW SD 51.8(H) 35.7 - 48.1 fL [facility] NRBC abs 0.00 0.00 - 0.01 K/cumm [facility] Blood 09/14/2024 1:59 AM CAN FILLING ROOM SWEEPER 09/14/2024 2:14 AM CAN FILLING ROOM SWEEPER Flo Villagran MD LAB BLOOD ORDERABLES Final R esult Performing Organization Address [facility] de Phone Number [facility] [address] [place] [address] * Phosphorus (09/14/2024 1:59 AM CAN FILLING ROOM SWEEPER) Phosphorus, pl 4.2 2.3 - 4.5 mg/dL Comment:Reviewed Blood 09/14/2024 1:59 AM CAN FILLING ROOM SWEEPER 09/14/2024 2:14 AM CAN FILLING ROOM SWEEPER Flo Villagran MD LAB BLOOD ORDERABLES Final R esult Performing Organization Address [facility] Phone Number [facility] [address] [facility] [place] [address] * Magnesium (09/14/2024 1:59 AM CAN FILLING ROOM SWEEPER) Magnesium 1.8 1.4 - 2.5 mg/dL Blood 09/14/2024 1:59 AM CAN FILLING ROOM SWEEPER 09/14/2024 2:14 AM CAN FILLING ROOM SWEEPER Result [facility] Flo Villagran MD LAB BLOOD ORDERABLES Final R esult Performing Organization Address [facility] de Phone Number [facility] [address] [place], [place] [phone] * Bilirubin, direct (09/14/2024 1:59 AM CAN FILLING ROOM SWEEPER) Bilirubin, direct 0.3 0.1 - 0.3 mg/dL Blood 09/14/2024 1:59 AM CAN FILLING ROOM SWEEPER 09/14/2024 2:14 AM CAN FILLING ROOM SWEEPER Flo Villagran MD LAB BLOOD ORDERABLES Final R esult Performing Organization Address [facility]/State/ZIP Co de Phone Number [facility] [address] [place] [address] * (ABNORMAL) Comprehensive metabolic panel (09/14/2024 1:59 AM CAN FILLING ROOM SWEEPER) Sodium 149(H) 135 - 145 mmol/L Potassium, pl 3.8 3.3 - 4.9 mmol/L [facility] Chloride 112(H) 97 - 110 mmol/L [facility] CO2 20(L) 22 - 32 mmol/L [facility] Anion gap 17(H) 2 - 15 mmol/L [facility] BUN 44(H) 6 - 25 mg/dL [facility] Creatinine 1.63(H) 0.60 - 1.10 mg/dL [facility] Glucose 312(H) 70 - 199 mg/dL [facility] Comment: Interpretive Data Fasting glucose >/= 126 mg/dl is diagnostic for diabetes. Fasting is defined as no caloric intake for at least 8 hours. Fasting glucose between 100 mg/dl to 125 mg/dl is diagnostic of prediabetes. In a patient with classic symptoms of hyperglycemia or hyperglycemic crisis, a random glucose >/= 200 mg/dl is diagnostic for diabetes. In the absence of unequivocal hyperglycemia, results should be confirmed by repeat testing. The classification and Diagnosis of Diabetes Diabetes Care 202; 46: S19-S40. Current interpretive data was last revised 2022. Calcium 8.5 8.5 - 10.3 mg/dL [facility] Bilirubin, total 0.6 0.1 - 1.2 mg/dL [facility] Protein, pl 6.0(L) 6.5 - 8.5 g/dL [facility] Albumin 2.8(L) 3.5 - 5.0 g/dL [facility] Alk phos 96 40 - 130 Units/L [facility] CLINIC ALT 28 7 - 45 Units/L [facility] AST 51(H) 10 - 45 Units/L [facility] Blood 09/14/2024 1:59 AM CAN FILLING ROOM SWEEPER 09/14/2024 2:14 AM CAN FILLING ROOM SWEEPER Flo Villagran MD LAB BLOOD ORDERABLES Final R esult Performing Organization Address [facility] Co de Phone Number [facility] [address] Department [employer] [place], [place] [phone] * (ABNORMAL) POCT glucose (09/14/2024 12:41 AM CAN FILLING ROOM SWEEPER) Glucose, POC 266(H) 70 - 199 mg/dL Comment: For Glucose values <35 mg/dl when Hematocrit is >60 mg/dl,the test may not accurately detect significant hypoglycemia,and testing in the Laboratory should be considered if clinically indicated. Blood 09/14/2024 12:4 1 AM CAN FILLING ROOM SWEEPER 09/14/2024 12:41 AM CAN FILLING ROOM SWEEPER us Flo Villagran MD LAB POCT ORDERABLES - DEVICE Final Result Performing Organization Address [facility] de Phone Number [facility] [address] [facility] [employer] [place], [place] [phone] * (ABNORMAL) aPTT (09/13/2024 9:58 PM CAN FILLING ROOM SWEEPER) aPTT 148(C) 28 - 38 sec Comment: spoke with Linda Jean (RN) 09/13/2024 22:44:39 CAN FILLING ROOM SWEEPER [id number] Interpretive Data Heparin therapeutic range: 66.0 - 100.0 seconds. Range based on correlation with therapeutic heparin activity range of 0.3 - 0.7 Units/mL. Current interpretive data was last revised on 2023. Blood 09/13/2024 9:58 PM CAN FILLING ROOM SWEEPER 09/13/2024 10:02 PM CAN FILLING ROOM SWEEPER us Flo Villagran MD LAB BLOOD ORDERABLES Final R esult Performing Organization Address [facility] Co de Phone Number [facility] [address] [facility] [employer] [place], [place] [phone] * XR Abdomen 2 Views Erect and or Decubitus (09/13/2024 9:41 PM CAN FILLING ROOM SWEEPER) Anatomical Region Laterality Modality Body, Abdomen N/A Computed Radiogr aphy 09/14/2024 9:14 AM CAN FILLING ROOM SWEEPER Impressions 09/14/2024 9:14 AM CAN FILLING ROOM SWEEPER Supine and upright views of the abdomen submitted for interpretation without comparison. There is an overall paucity of bowel gas which is nonspecific. No dilated loops are visualized. There is no free intraperitoneal gas on the upright view. A gastric tube tip projects over the gastric antrum with a course suggesting a kink at the level of the side port in the pylorus. There is left retrocardiac and left midlung airspace opacification seen to better advantage on dedicated chest radiograph. Electronically signed by: Alfonso Taylor M.D. Narrative 09/14/2024 9:14 AM CAN FILLING ROOM SWEEPER EXAMINATION: XR ABDOMEN ERECT AND OR DECUBITUS 2 VIEWS History: Vomiting Procedure Note Alfonso Taylor MD - 09/14/2024 EXAMINATION: XR ABDOMEN ERECT AND OR DECUBITUS 2 VIEWS History: Vomiting IMPRESSION: Supine and upright views of the abdomen submitted for interpretation without comparison. There is an overall paucity of bowel gas which is nonspecific. No dilated loops are visualized. There is no free intraperitoneal gas on the upright view. A gastric tube tip projects over the gastric antrum with a course suggesting a kink at the level of the side port in the pylorus. There is left retrocardiac and left midlung airspace opacification seen to better advantage on dedicated chest radiograph. Electronically signed by: Alfonso Taylor M.D. us Flo Villagran MD IMG XR PROCEDURES Final Resu lt * (ABNORMAL) POCT glucose (09/13/2024 7:57 PM CAN FILLING ROOM SWEEPER) Glucose, POC 249(H) 70 - 199 mg/dL Comment: For Glucose values <35 mg/dl when Hematocrit is >60 mg/dl,the test may not accurately detect significant hypoglycemia,and testing in the Laboratory should be considered if clinically indicated. Blood 09/13/2024 7:57 PM CAN FILLING ROOM SWEEPER 09/13/2024 7:57 PM CAN FILLING ROOM SWEEPER us Flo Villagran MD LAB POCT ORDERABLES - DEVICE Final Result Performing Organization Address [facility] Co de Phone Number [facility] [address] [place] [address] * (ABNORMAL) eGFR (09/13/2024 6:33 PM CAN FILLING ROOM SWEEPER) eGFR 47(L) >=60 mL/min/1. 73 m2 Comment: Interpretive Data Reference Interval Normal >/= 90 mL/min/1.73m2 Mildly decreased* 60 - 89 mL/min/1.73m2 Mildly to moderately decreased 45 - 59 mL/min/1.73m2 Moderately to severely decreased 30 - 44 mL/min/1.73m2 Severely decreased 15 - 29 mL/min/1.73m2 Kidney Failure < 15 mL/min/1.73m2 *Relative to young adult level Estimated glomerular [...] interpretive data was last reviewed 2021. Blood 09/13/2024 6:33 PM CAN FILLING ROOM SWEEPER 09/13/2024 6:41 PM CAN FILLING ROOM SWEEPER Flo Villagran MD LAB BLOOD ORDERABLES Final R esult Performing Organization Address City/[facility]/ZIP Co de Phone Number [facility] [address] [place] [address] * (ABNORMAL) Renal function panel (09/13/2024 6:33 PM CAN FILLING ROOM SWEEPER) Sodium 146(H) 135 - 145 mmol/L Potassium, pl 3.6 3.3 - 4.9 mmol/L [facility] Chloride 112(H) 97 - 110 mmol/L [facility] CO2 20(L) 22 - 32 mmol/L [facility] Anion gap 14 2 - 15 mmol/L [facility] BUN 42(H) 6 - 25 mg/dL [facility] Creatinine 1.38(H) 0.60 - 1.10 mg/dL [facility] Glucose 182 70 - 199 mg/dL [facility] Comment: Interpretive Data Fasting glucose >/= 126 mg/dl is diagnostic for diabetes. Fasting is defined as no caloric intake for at least 8 hours. Fasting glucose between 100 mg/dl to 125 mg/dl is diagnostic of prediabetes. In a patient with classic symptoms of hyperglycemia or hyperglycemic crisis, a random glucose >/= 200 mg/dl is diagnostic for diabetes. In the absence of unequivocal hyperglycemia, results should be confirmed by repeat testing. The classification and Diagnosis of Diabetes Diabetes Care 2021; 46: S19-S40. Current interpretive data was last revised 2022. Calcium 7.9(L) 8.5 - 10.3 mg/dL [facility] Phosphorus, pl 2.1(L) 2.3 - 4.5 mg/dL [facility] Albumin 2.4(L) 3.5 - 5.0 g/dL [facility] Blood 09/13/2024 6:33 PM CAN FILLING ROOM SWEEPER 09/13/2024 6:41 PM CAN FILLING ROOM SWEEPER Flo Villagran MD LAB BLOOD ORDERABLES Final R esult [facility] [address] [place] [address] * ECG 12 lead (09/13/2024 5:24 PM CAN FILLING ROOM SWEEPER) 09/13/2024 5:24 PM CAN FILLING ROOM SWEEPER Narrative [facility] - 09/14/2024 12:02 AM CAN FILLING ROOM SWEEPER Vent Rate: 136 bpm RR Interval: 440 msec [place] Interval: 122 msec QRS Duration: 86 msec QT Interval: 330 msec QTC Interval: 410 msec P-R-T [place]: 57 - -14 - 116 degrees IMPRESSION: SINUS TACHYCARDIA ST DEVIATION AND MODERATE T-WAVE ABNORMALITY, CONSIDER LATERAL ISCHEMIA ABNORMAL ECG Electronically Signed By: Nilson Dubose [facility] Card us Flo Villagran MD ECG ORDERABLES Final Result Performing Organization Address [facility] de Phone Number [facility] * POCT glucose (09/13/2024 4:29 PM CAN FILLING ROOM SWEEPER) Glucose, POC 160 70 - 199 mg/dL Comment: For Glucose values <35 mg/dl when Hematocrit is >60 mg/dl,the test may not accurately detect significant hypoglycemia,and testing in the Laboratory should be considered if clinically indicated. Blood 09/13/2024 4:29 PM CAN FILLING ROOM SWEEPER 09/13/2024 4:29 PM CAN FILLING ROOM SWEEPER Flo Villagran MD LAB POCT ORDERABLES - DEVICE Final Result Performing Organization Address [facility] de Phone Number [facility] [address] [place] [address] * POCT glucose (09/13/2024 3:18 PM CAN FILLING ROOM SWEEPER) Glucose, POC 92 70 - 199 mg/dL Comment: For Glucose values <35 mg/dl when Hematocrit is >60 mg/dl,the test may not accurately detect significant hypoglycemia,and testing in the Laboratory should be considered if clinically indicated. Blood 09/13/2024 3:18 PM CAN FILLING ROOM SWEEPER 09/13/2024 3:18 PM CAN FILLING ROOM SWEEPER Flo Villagran MD LAB POCT ORDERABLES - DEVICE Final Result Performing Organization Address [facility] de Phone Number [facility] [address] [place] [address] * POCT glucose (09/13/2024 2:29 PM CAN FILLING ROOM SWEEPER) Glucose, POC 102 70 - 199 mg/dL Comment: For Glucose values <35 mg/dl when Hematocrit is >60 mg/dl,the test may not accurately detect significant hypoglycemia,and testing in the Laboratory should be considered if clinically indicated. Blood 09/13/2024 2:29 PM CAN FILLING ROOM SWEEPER 09/13/2024 2:29 PM CAN FILLING ROOM SWEEPER Flo Villagran MD LAB POCT ORDERABLES - DEVICE Final Result Performing Organization Address [facility] Co de Phone Number [facility] [address] Department [employer] [place], [place] [phone] * (ABNORMAL) aPTT (09/13/2024 2:28 PM CAN FILLING ROOM SWEEPER) [facility] aPTT 102(H) 28 - 38 sec Comment: Interpretive Data Heparin therapeutic range: 66.0 - 100.0 seconds. Range based on correlation with therapeutic heparin activity range of 0.3 - 0.7 Units/mL. Current interpretive data was last revised on 2023. Blood 09/13/2024 2:28 PM CAN FILLING ROOM SWEEPER 09/13/2024 2:36 PM CAN FILLING ROOM SWEEPER Flo Villagran MD LAB BLOOD ORDERABLES Final R esult Performing Organization Address [facility] de Phone Number [facility] [address] [employer] [place], [place] [phone] * POCT glucose (09/13/2024 1:10 PM CAN FILLING ROOM SWEEPER) [facility] Glucose, POC 117 70 - 199 mg/dL Comment: For Glucose values <35 mg/dl when Hematocrit is >60 mg/dl,the test may not accurately detect significant hypoglycemia,and testing in the Laboratory should be considered if clinically indicated. Blood 09/13/2024 1:10 PM CAN FILLING ROOM SWEEPER 09/13/2024 1:10 PM CAN FILLING ROOM SWEEPER Flo Villagran MD LAB POCT ORDERABLES - DEVICE Final Result Performing Organization Address [facility] Co de Phone Number [facility] [address] [facility] [employer] [place], [place] [phone] * (ABNORMAL) eGFR (09/13/2024 12:22 PM CAN FILLING ROOM SWEEPER) [facility] eGFR 46(L) >=60 mL/min/1. 73 m2 Comment: Interpretive Data Reference Interval Normal >/= 90 mL/min/1.73m2 Mildly decreased* 60 - 89 mL/min/1.73m2 Mildly to moderately decreased 45 - 59 mL/min/1.73m2 Moderately to severely decreased 30 - 44 mL/min/1.73m2 Severely decreased 15 - 29 mL/min/1.73m2 Kidney Failure < 15 mL/min/1.73m2 *Relative to young adult level Estimated glomerular [...] interpretive data was last reviewed 2021. Blood 09/13/2024 12:2 2 PM CAN FILLING ROOM SWEEPER 09/13/2024 12:40 PM CAN FILLING ROOM SWEEPER us Abeba Ash MD LAB BLOOD ORDERABLES Final R esult [facility] [address] Department [employer] [place], [place] [phone] * Phosphorus (09/13/2024 12:22 PM CAN FILLING ROOM SWEEPER) Phosphorus, pl 2.3 2.3 - 4.5 mg/dL Blood 09/13/2024 12:2 2 PM CAN FILLING ROOM SWEEPER 09/13/2024 12:40 PM CAN FILLING ROOM SWEEPER Abeba Ash MD LAB BLOOD ORDERABLES Final R esult [facility] [address] [place] [address] * Magnesium (09/13/2024 12:22 PM CAN FILLING ROOM SWEEPER) Magnesium 1.9 1.4 - 2.5 mg/dL Blood 09/13/2024 12:2 2 PM CAN FILLING ROOM SWEEPER 09/13/2024 12:40 PM CAN FILLING ROOM SWEEPER Abeba Ash MD LAB BLOOD ORDERABLES Final R esult [facility] [address] [place] [address] * (ABNORMAL) Basic metabolic panel (09/13/2024 12:22 PM CAN FILLING ROOM SWEEPER) Pathologist [facility] Sodium 146(H) 135 - 145 mmol/L Potassium, pl 3.5 3.3 - 4.9 mmol/L [facility] Chloride 111(H) 97 - 110 mmol/L [facility] CO2 22 22 - 32 mmol/L [facility] Anion gap 13 2 - 15 mmol/L [facility] BUN 47(H) 6 - 25 mg/dL [facility] Creatinine 1.41(H) 0.60 - 1.10 mg/dL [facility] Glucose 141 70 - 199 mg/dL [facility] Comment: Interpretive Data Fasting glucose >/= 126 mg/dl is diagnostic for diabetes. Fasting is defined as no caloric intake for at least 8 hours. Fasting glucose between 100 mg/dl to 125 mg/dl is diagnostic of prediabetes. In a patient with classic symptoms of hyperglycemia or hyperglycemic crisis, a random glucose >/= 200 mg/dl is diagnostic for diabetes. In the absence of unequivocal hyperglycemia, results should be confirmed by repeat testing. The classification and Diagnosis of Diabetes Diabetes Care 2021; 46: S19-S40. Current interpretive data was last revised 2022. Calcium 8.6 8.5 - 10.3 mg/dL [facility] Blood 09/13/2024 12:2 2 PM CAN FILLING ROOM SWEEPER 09/13/2024 12:40 PM CAN FILLING ROOM SWEEPER us Abeba Ash MD LAB BLOOD ORDERABLES Final R esult Performing Organization Address [facility]/ZIP Co de Phone Number [facility] [address] [place] [address] * POCT glucose (09/13/2024 12:20 PM CAN FILLING ROOM SWEEPER) Glucose, POC 142 70 - 199 mg/dL Comment: For Glucose values <35 mg/dl when Hematocrit is >60 mg/dl,the test may not accurately detect significant hypoglycemia,and testing in the Laboratory should be considered if clinically indicated. Blood 09/13/2024 12:2 0 PM CAN FILLING ROOM SWEEPER 09/13/2024 12:20 PM CAN FILLING ROOM SWEEPER us Flo Villagran MD LAB POCT ORDERABLES - DEVICE Final Result [facility] [address] [place] [address] * US Carotids Duplex Bilateral (09/13/2024 11:55 AM CAN FILLING ROOM SWEEPER) Anatomical Region Laterality Modality Vascular Bilateral Ultrasound 09/13/2024 12:3 7 PM CAN FILLING ROOM SWEEPER Impressions 09/13/2024 12:37 PM CAN FILLING ROOM SWEEPER 1) There are minimal non-hemodynamic plaque formations at the right carotid bifurcation region with relatively normal velocities and flow throughout the right carotid system. On the left side there are minimal non-hemodynamic plaque formations at the carotid bifurcation with normal velocities and flow in the common and internal carotid artery systems with additionally a significant external carotid artery stenosis with velocity elevations in the external carotid artery. 2) Vertebral arteries demonstrate and to flow on the right, and antegrade flow on the left. 3) No comparison available. The estimated degree of stenosis of the internal carotid arteries reported on this examination is based on the diagnostic criteria proposed by the Society of Radiologists in Ultrasound (SRU) Consensus Conference. Electronically signed by: Kwaku Tolentino M.D. Narrative 09/13/2024 12:37 PM CAN FILLING ROOM SWEEPER DATE:09/13/2024 10:00 AM EXAM: Duplex imaging of the carotid arteries. INDICATION: Stroke bilateral carotid stenosis. COMPARISON STUDY DATE: None avail IMAGE QUALITY: Fair FINDINGS: RIGHT SIDE: B/P: Not record Right: B-mode imaging demonstrates complex plaque morphology in the right common carotid artery. The right common carotid artery peak systolic velocity is 92 cm/sec. B-mode imaging demonstrates minimal plaque morphology in the right internal carotid artery. The right internal carotid artery peak systolic velocity is 90 cm/ sec. The end diastolic velocity is 23. The right internal carotid artery to common carotid artery ratio is 1. The right external carotid artery peak systolic velocity is 197 cm/sec. The right vertebral artery demonstrates and to flow. Incidental findings: None LEFT SIDE: B/P: Not record Left: B-mode imaging demonstrates complex plaque morphology in the left common carotid artery. The left common carotid artery peak systolic velocity is 102 cm/sec. B-mode imaging demonstrates complex plaque morphology in the left internal carotid artery.The left internal carotid artery peak systolic velocity is 153 cm/ sec. The end diastolic velocity is 32. The left internal carotid artery to common carotid artery ratio is 1.5. The left external carotid artery peak systolic velocity is 371 cm/sec. The left vertebral artery demonstrates antegrade flow. Incidental findings:None Procedure Note Kwaku Tolentino MD - 09/13/2024 DATE:09/13/2024 10:00 AM EXAM: Duplex imaging of the carotid arteries. INDICATION: Stroke bilateral carotid stenosis. COMPARISON STUDY DATE: None avail IMAGE QUALITY: Fair FINDINGS: RIGHT SIDE: B/P: Not record Right: B-mode imaging demonstrates complex plaque morphology in the right common carotid artery. The right common carotid artery peak systolic velocity is 92 cm/sec. B-mode imaging demonstrates minimal plaque morphology in the right internal carotid artery. The right internal carotid artery peak systolic velocity is 90 cm/ sec. The end diastolic velocity is 23. The right internal carotid artery to common carotid artery ratio is 1. The right external carotid artery peak systolic velocity is 197 cm/sec. The right vertebral artery demonstrates and to flow. Incidental findings: None LEFT SIDE: B/P: Not record Left: B-mode imaging demonstrates complex plaque morphology in the left common carotid artery. The left common carotid artery peak systolic velocity is 102 cm/sec. B-mode imaging demonstrates complex plaque morphology in the left internal carotid artery.The left internal carotid artery peak systolic velocity is 153 cm/ sec. The end diastolic velocity is 32. The left internal carotid artery to common carotid artery ratio is 1.5. The left external carotid artery peak systolic velocity is 371 cm/sec. The left vertebral artery demonstrates antegrade flow. Incidental findings:None IMPRESSION: 1) There are minimal non-hemodynamic plaque formations at the right carotid bifurcation region with relatively normal velocities and flow throughout the right carotid system. On the left side there are minimal non-hemodynamic plaque formations at the carotid bifurcation with normal velocities and flow in the common and internal carotid artery systems with additionally a significant external carotid artery stenosis with velocity elevations in the external carotid artery. 2) Vertebral arteries demonstrate and to flow on the right, and antegrade flow on the left. 3) No comparison available. The estimated degree of stenosis of the internal carotid arteries reported on this examination is based on the diagnostic criteria proposed by the Society of Radiologists in Ultrasound (SRU) Consensus Conference. Electronically signed by: Kwaku Tolentino M.D. us Flo Villagran MD IMG US PROCEDURES Final Resu lt * TRANSTHORACIC ECHO (TTE) COMPLETE W DOPPLER/CF W CONTRAST (09/13/2024 11:24 AM CAN FILLING ROOM SWEEPER) LV EF 45-50 % CONS SCIMAGE Anatomical Region Laterality Modality Ultrasound 09/13/2024 10:2 8 AM CAN FILLING ROOM SWEEPER Narrative 09/13/2024 4:50 PM CAN FILLING ROOM SWEEPER [id number] [place] [address] ECHOCARDIOGRAM Patient Name: BROOKE MARSHALL R : 1975 (48y 8m) Gender: F Study Date: 09/13/2024 10:28:21 AM Ht(Inch): 65 Wt(Lb): 201.94 BSA: 2.05 Media Sales Consultant: MINH Location: [id number] Order Provider: ABEBA ASH BMI: 33.6 BP: 111/63 Ref Provider: ABEBA ASH - PROCEDURES: Echocardiographic Report: Transthoracic Echocardiogram with 2D, M-Mode, Spectral and Color Flow Doppler examination and administration of intravenous contrast. INDICATIONS: Non ST elevation DC. MEASUREMENTS: 2D/MM Value Range Doppler Value Range IVSd 2D 0.98 cm [ 0.60 - 0.90 ] AV Peak Tyler 2 m/s [ 1 - 2 ] LVIDd 2D 4.03 cm [ 3.80 - 5.20 ] AV Peak PG 9.8 mmHg LVIDs 2D 3.25 cm [ 2.20 - 3.50 ] AV Mean PG 6 mmHg LVPWd 2D 0.98 cm [ 0.60 - 0.90 ] AV VTI 23.8 cm Estimated EF 45-50 % JUAN DANIEL VTI 2.3 cm2 LA Dimension 2D 3.30 cm [ 2.70 - 3.80 ] LVOT Peak Tyler 1.03 m/s [ 0.70 - 1.10 ] AoR Diam 2D 2.65 cm [ 2.70 - 3.70 ] LVOT Diam 2.1 cm AoR Diam 2D Index 1.29 LVOT Peak PG 4 mmHg RA Volume 26.00 ml LVOT VTI 16.4 cm LA Volume Index 13.95 ml/m2 [ 16.00 - 34.00 ] MV Peak PG 6 mmHg TAPSE 1.72 cm [ 1.71 - 5.00 ] MV Mean PG 4 mmHg MV E Peak Tyler 0.9 m/s [ 0.6 - 1.3 ] MV A Peak Tyler 1.2 m/s [ 1.0 - 1.2 ] MV PHT 46.2 ms [ 20.0 - 100.0 ] MV Decel Time 178.1 ms [ 104.0 - 258.0 ] MVA PHT 4.8 ms MV E/A Ratio 0.8 RA Pressure 3.0 mmHg PV Peak Tyler 1.1 m/s [ 0.4 - 0.8 ] PV Peak PG 5 mmHg Lat E` Tyler 0.11 m/s [ 0.10 - 0.15 ] Sept E' Tyler 0.14 m/s [ 0.08 - 0.15 ] E/E` 8.18 RV S' 0.19 m/s 2D/MM Value Range Doppler Value Range - FINDINGS: Study Quality: Technically difficult study. Contrast was employed for LV opacification and endocardial border enhancement. BP: Blood pressure: 111/63 mmHg. Left Ventricle: Mild left ventricular systolic dysfunction. There is global hypokinesis. Ejection Fraction is estimated at 45-50 %. Normal left ventricular cavity size. LV wall thickness is within normal limits. Right Ventricle: Normal right ventricular systolic function. Normal right ventricular size. Left Atrium: The left atrium is normal in size. Right Atrium: The right atrium is normal in size. Atrial Septum: Normal appearing atrial septum. Mitral Valve: Normal mitral valve appearance and function. Aortic Valve: Aortic valve appears tricuspid in configuration. Aortic valve cusps appear mildly sclerotic. There is no aortic stenosis. There is no aortic regurgitation. Tricuspid Valve: Normal tricuspid valve appearance and function. Pulmonic Valve: The pulmonic valve is not seen. Pericardium: Normal appearing pericardial thickness. No significant pericardial effusion. Aortic Root and Aorta: Normal caliber aortic root. Aortic Arch: The aortic arch is poorly visualized. IVC: Normal appearance of the inferior vena cava. CONCLUSIONS: 1. Mild left ventricular systolic dysfunction. There is global hypokinesis. Ejection Fraction is estimated at 45-50 %. Normal left ventricular cavity size. LV wall thickness is within normal limits. 2. Aortic valve appears tricuspid in configuration. Aortic valve cusps appear mildly sclerotic. There is no aortic stenosis. There is no aortic regurgitation. Electronically Signed By: Rene Nicole MD 09/13/2024 4:49:40 PM CAN FILLING ROOM SWEEPER Procedure Note Rene Nicole MD - 09/13/2024 [id number] [place] [address] ECHOCARDIOGRAM Patient Name: BROOKE MARSHALL R : 1975 (48y 8m) Gender: F Study Date: 09/13/2024 10:28:21 AM Ht(Inch): 65 Wt(Lb): 201.94 BSA: 2.05 Media Sales Consultant: MINH Location: [id number] Order Provider: ABEBA ASH BMI: 33.6 BP: 111/63 Ref Provider: ABEBA ASH - PROCEDURES: Echocardiographic Report: Transthoracic Echocardiogram with 2D, M-Mode,Spectral and Color Flow Doppler examination and administration of intravenouscontrast. INDICATIONS: Non ST elevation DC. MEASUREMENTS: 2D/MM Value Range DopplerValue Range IVSd 2D 0.98 cm [ 0.60 - 0.90 ] AV Peak Vel2 m/s [ 1 - 2 ] LVIDd 2D 4.03 cm [ 3.80 - 5.20 ] AV Peak PG9.8 mmHg LVIDs 2D 3.25 cm [ 2.20 - 3.50 ] AV Mean PG6 mmHg LVPWd 2D 0.98 cm [ 0.60 - 0.90 ] AV VTI23.8 cm Estimated EF 45-50 % JUAN DANIEL VTI2.3 cm2 LA Dimension 2D 3.30 cm [ 2.70 - 3.80 ] LVOT Peak Vel1.03 m/s [ 0.70 - 1.10 ] AoR Diam 2D 2.65 cm [ 2.70 - 3.70 ] LVOT Diam2.1 cm AoR Diam 2D Index 1.29 LVOT Peak PG4 mmHg RA Volume 26.00 ml LVOT VTI16.4 cm LA Volume Index 13.95 ml/m2 [ 16.00 - 34.00 ] MV Peak PG6 mmHg TAPSE 1.72 cm [ 1.71 - 5.00 ] MV Mean PG4 mmHg MV E Peak Tyler 0.9 m/s [ 0.6 - 1.3 ] MV A Peak Tyler 1.2 m/s [ 1.0 - 1.2 ] MV PHT 46.2 ms [ 20.0 - 100.0 ] MV Decel Time 178.1 ms [ 104.0 - 258.0 ] MVA PHT 4.8 ms MV E/A Ratio 0.8 RA Pressure 3.0 mmHg PV Peak Tyler 1.1 m/s [ 0.4 - 0.8 ] PV Peak PG 5 mmHg Lat E` Tyler 0.11 m/s [ 0.10 - 0.15 ] Sept E' Tyler 0.14 m/s [ 0.08 - 0.15 ] E/E` 8.18 RV S' 0.19 m/s 2D/MM Value Range DopplerValue Range - FINDINGS: Study Quality: Technically difficult study. Contrast was employed for LVopacification and endocardial border enhancement. BP: Blood pressure: 111/63 mmHg. Left Ventricle: Mild left ventricular systolic dysfunction. There isglobal hypokinesis. Ejection Fraction is estimated at 45-50 %. Normal left ventricular cavitysize. LV wall thickness is within normal limits. Right Ventricle: Normal right ventricular systolic function. Normal rightventricular size. Left Atrium: The left atrium is normal in size. Right Atrium: The right atrium is normal in size. Atrial Septum: Normal appearing atrial septum. Mitral Valve: Normal mitral valve appearance and function. Aortic Valve: Aortic valve appears tricuspid in configuration. Aorticvalve cusps appear mildly sclerotic. There is no aortic stenosis. There is no aorticregurgitation. Tricuspid Valve: Normal tricuspid valve appearance and function. Pulmonic Valve: The pulmonic valve is not seen. Pericardium: Normal appearing pericardial thickness. No significantpericardial effusion. Aortic Root and Aorta: Normal caliber aortic root. Aortic Arch: The aortic arch is poorly visualized. IVC: Normal appearance of the inferior vena cava. CONCLUSIONS: 1. Mild left ventricular systolic dysfunction. There is globalhypokinesis. Ejection Fraction is estimated at 45-50 %. Normal left ventricular cavity size. LVwall thickness is within normal limits. 2. Aortic valve appears tricuspid in configuration. Aortic valve cuspsappear mildly sclerotic. There is no aortic stenosis. There is no aorticregurgitation. Electronically Signed By: Rene Nicole MD 09/13/2024 4:49:40 PM CAN FILLING ROOM SWEEPER us Abeba Ash MD CV ECHO PROCEDURES Final Res ult * POCT glucose (09/13/2024 11:12 AM CAN FILLING ROOM SWEEPER) Glucose, POC 149 70 - 199 mg/dL Comment: For Glucose values <35 mg/dl when Hematocrit is >60 mg/dl,the test may not accurately detect significant hypoglycemia,and testing in the Laboratory should be considered if clinically indicated. Blood 09/13/2024 11:1 2 AM CAN FILLING ROOM SWEEPER 09/13/2024 11:12 AM CAN FILLING ROOM SWEEPER Flo Villagran MD LAB POCT ORDERABLES - DEVICE Final Result Performing Organization Address [facility] Co de Phone Number [facility] [address] [facility] [place] [address] * (ABNORMAL) DIC Platelet (09/13/2024 9:45 AM CAN FILLING ROOM SWEEPER) Plt 96(L) 150 - 400 K/cumm Blood 09/13/2024 9:45 AM CAN FILLING ROOM SWEEPER 09/13/2024 10:14 AM CAN FILLING ROOM SWEEPER Flo Villagran MD LAB BLOOD ORDERABLES Final R esult Performing Organization Address [facility] de Phone Number [facility] [address] [facility] [place] [address] * (ABNORMAL) DIC Coagulation (09/13/2024 9:45 AM CAN FILLING ROOM SWEEPER) Pathologist [facility] PT DIC 10.3 10.3 - 13.7 sec INR DIC 0.95 0.90 - 1.20 [facility] PTT DIC 78(H) 28 - 38 sec [facility] Comment: Interpretive Data Heparin therapeutic range: 66.0 - 100.0 seconds. Range based on correlation with therapeutic heparin activity range of 0.3 - 0.7 Units/mL. Current interpretive data was last revised on 2023. D-Dimer 2,217(H) <=499 ng/mL FEU [facility] Comment: Interpretive data FDA approved the D-dimer, in conjunction with a low or moderate pretest probability score, to exclude venous thromboembolic events (VTE) (PE and DVT) in outpatients when the D-dimer result is < 500 ng/ml FEU. Evidence supports using an age-adjusted D-dimer cut-off for outpatients older than 50 (age x 10) to improve specificity without sacrificing sensitivity. Example: age 68, VTE cut-off 680 ng/ml FEU. References; Toby MEDRANO et al. Brit Med J. 2013;346:f2492. Shabana RIVERA et al. Annals Int Med. 2015;163:701-11. Current interpretive data was last revised on 2019. Fibrinogen 620(H) 170 - 400 mg/dL [facility] Blood 09/13/2024 9:45 AM CAN FILLING ROOM SWEEPER 09/13/2024 10:14 AM CAN FILLING ROOM SWEEPER Flo Villagran MD LAB BLOOD ORDERABLES Final R esult Performing Organization Address [facility] Co de Phone Number [facility] [address] [place] [address] * HIT Antibodies with Reflex to Serotonin Release Assay (ASHLEY) (09/13/2024 9:45 AM CAN FILLING ROOM SWEEPER) HIT antibodies Negative Negative Comment: INTERPRETIVE DATA A result of >/= 1.0 U/mL is interpreted as Heparin/anti-PF4 antibody positive. A result of < 1.0 U/mL is interpreted as Heparin/anti-PF4 antibody negative. Although a positive result may indicate the presence of Heparin-associated antibodies, it does not CONFIRM the diagnosis of Heparin Induced Thrombocytopenia (HIT). Positive specimens will be sent to [facility] ([facility]) for confirmatory testing by Serotonin Release Assay (ASHLEY). Current interpretive data last reviewed 2017 Blood 09/13/2024 9:45 AM CAN FILLING ROOM SWEEPER 09/13/2024 10:14 AM CAN FILLING ROOM SWEEPER Flo Villagran MD LAB BLOOD ORDERABLES Final R esult Performing Organization Address [facility] Co de Phone Number [facility] [address] [place] [address] * DIC Schistocytes (09/13/2024 9:45 AM CAN FILLING ROOM SWEEPER) Schistocytes None Seen None Seen Blood 09/13/2024 9:45 AM CAN FILLING ROOM SWEEPER 09/13/2024 10:14 AM CAN FILLING ROOM SWEEPER Flo Villagran MD LAB BLOOD ORDERABLES Final R esult Performing Organization Address City/[facility]/ZIP Co de Phone Number [facility] [address] [place] [address] * (ABNORMAL) Urinalysis reflex to microscopic and culture Urine (09/13/2024 9:45 AM CAN FILLING ROOM SWEEPER) Color, ur Yellow Yellow Clarity, ur Turbid(A) Clear [facility] Specific gravity, ur 1.020 1.003 - 1.030 [facility] pH, urine 6.0 [facility] Comment: Interpretive Data U rine pH is affected by diet, medications, systemic acid-base disturbances, and renal tubular function. pH may affect urinary stone formation. For example, urine pH below 6.0 may help reduce the tendency for calcium phosphate stones and pH greater than 6.0 may reduce the tendency for uric acid stone formation. Source: [facility] Current Interpretive Data was last revised on 2017 Protein, ur ql 2+(A) Negative [facility] Glucose, ur ql 3+(A) Negative [facility] Ketones, ur Trace Negative [facility] Bilirubin, ur Negative Negative [facility] Blood, ur 1+(A) Negative [facility] Urobilinogen, ur <2.0 <2.0 mg/dL [facility] Nitrite, ur Negative Negative [facility] Leukocyte esterase, ur 4+(A) Negative [facility] UA reflex comment Reflex to microscopic UA will be performed. [facility] Urine 09/13/2024 9:45 AM CAN FILLING ROOM SWEEPER 09/13/2024 9:45 AM CAN FILLING ROOM SWEEPER Flo Villagran MD LAB MICROBIOLOGY - GENERAL O RDERABLES Final Result Performing Organization Address City/[facility]/ZIP Co de Phone Number [facility] [address] Department [place] [address] * (ABNORMAL) Drugs of Abuse Screen, Urine without Confirmation (09/13/2024 9:45 AM CAN FILLING ROOM SWEEPER) Amphetamine, ur Not Detected CutOff 500ng/mL Comment: Interpretive Data - Amphetamines: Samples containing greater than 500 ng/mL d-methamphetamine or other cross-reacting amphetamine compounds are reported as positive. Amphetamine immunoassays are subject to significant false positive rates due to cross-reactivity of non-amphetamine drugs. Confirmatory testing required for definitive results. Current Interpretive Data was last reviewed 2023. Barbiturates, ur Not Detected CutOff 200ng/mL [facility] Comment: Interpretive Data - Barbiturates: Samples containing greater than 200 ng/mL secobarbital or other cross-reacting barbiturate compounds are reported as positive. False positive and false negative results are possible. Confirmatory testing required for definitive results. Current Interpretive Data was last reviewed 2023. Benzodiazepines, ur Not Detected CutOff 100ng/mL [facility] Comment: Interpretive Data - Benzodiazepines: Samples containing greater than 100 ng/mL nordiazepam or other cross-reacting compounds are reported as positive. False positive and false negative results are possible. Confirmatory testing required for definitive results. Current Interpretive Data was last reviewed 2023. Cannabinoids, ur Not Detected CutOff 50 ng/mL [facility] Comment: Interpretive Data - Cannabinoids: Samples containing greater than 50 ng/mL delta-9 THC -COOH or other cross- reacting compounds are reported as positive. False positive and false negative results are possible. Confirmatory testing required for definitive results. Current Interpretive Data was last reviewed 2023. Cocaine, ur Not Detected CutOff 150ng/mL [facility] Comment: Interpretive Data - Cocaine: Samples containing greater than 150 ng/mL benzoylecgonine or other cross- reacting compounds are reported as positive. False positive and false negative results are possible. Confirmatory testing required for definitive results. Current Interpretive Data was last reviewed 2023. Fentanyl, Ur Screen Positive, presumptive (A) CutOff 5 ng/mL [facility] Comment: Interpretive Data - Fentanyl: Samples containing greater than 5 ng/mL norfentanyl, fentanyl, or other cross-reacting fentanyl compounds are reported as positive. False positive and false negative results are possible. Confirmatory testing required for definitive results. Current Interpretive Data was last reviewed 2023. Methadone, ur Not Detected CutOff 300ng/mL [facility] Comment: Interpretive Data - Methadone: Samples containing greater than 300 ng/mL d,l-methadone or other cross-reacting compounds are reported as positive. False positive and false negative results are possible. Confirmatory testing required for definitive results. Current Interpretive Data was last reviewed 2023. Opiates, ur Screen Positive, presumptive (A) CutOff 300ng/mL [facility] Comment: Interpretive Data - Opiates: Samples containing greater than 300 ng/mL morphine or other cross-reacting compounds are reported as positive. False positive and false negative results are possible. Confirmatory testing required for definitive results. Current Interpretive Data was last reviewed 2023. Oxycodone, ur Not Detected CutOff 100ng/mL [facility] Comment: Interpretive Data - Oxycodone: Samples containing greater than 100 ng/mL oxycodone or other cross-reacting compounds are reported as positive. False positive and false negative results are possible. Confirmatory testing required for definitive results. Current Interpretive Data was last reviewed 2023. Phencyclidine, ur Not Detected CutOff 25 ng/mL [facility] Comment: Interpretive Data - Phencyclidine: Samples containing greater than 25 ng/mL phencyclidine or other cross-reacting compounds are reported as positive. False positive and false negative results are possible. Confirmatory testing required for definitive results. Current Interpretive Data was last reviewed 2023. Urine Creatinine 90 mg/dL [facility] Comment: Interpretive Data Urine Creatinine: < 10 mg/dL is extremely dilute = or > 10 but < 20 mg/dL is dilute = or > 20 mg/dL is normal Current Interpretive Data was last revised on 2017. Urine 09/13/2024 9:45 AM CAN FILLING ROOM SWEEPER 09/13/2024 10:17 AM CAN FILLING ROOM SWEEPER Narrative [facility] - 09/13/2024 10:46 AM CAN FILLING ROOM SWEEPER Drug of Abuse screening is performed by immunoassay for medical purposes only. This is not to be used for Pain Management purposes. us Flo Villagran MD LAB URINE ORDERABLES Final R esult [facility] [address] Department of Laboratories [place], [place] [id number] * (ABNORMAL) Urinalysis, microscopic only (09/13/2024 9:45 AM CAN FILLING ROOM SWEEPER) WBC, ur >50(A) 0 - 5 /HPF RBC, ur >50(A) 0 - 2 /HPF [facility] Epithelial cells, squamous, ur >50(A) 0 - 5 /HPF [facility] Comment:Suggestive of contam ination. Consider recollection by clean catch. Bacteria, ur 4+(A) [facility] Yeast, ur 4+(A) [facility] Mucous, ur Present(A) [facility] Culture Reflex Comment Reflex to urine culture will be performed. [facility] Urine 09/13/2024 9:45 AM CAN FILLING ROOM SWEEPER 09/13/2024 10:17 AM CAN FILLING ROOM SWEEPER Flo Villagran MD LAB URINE ORDERABLES Final R esult Performing Organization Address [facility] Co de Phone Number [facility] [address] [place], [place] [id number] * (ABNORMAL) Urine culture Urine (09/13/2024 9:45 AM CAN FILLING ROOM SWEEPER) Report Final Report: Greater than or equal to 100,000 colonies/ml of Lactobacillus species Susceptibility not performed on this isolate (.) Organism LACTOBACILLUS SPECIES [facility] Urine 09/13/2024 9:45 AM CAN FILLING ROOM SWEEPER 09/13/2024 11:49 AM CAN FILLING ROOM SWEEPER Narrative [facility] - 09/15/2024 12:40 PM CAN FILLING ROOM SWEEPER Urine culture reflexed based upon urinalysis results. Flo Villagran MD LAB MICROBIOLOGY - GENERAL O RDERABLES Final Result Performing Organization Address [facility]/ZIP Co de Phone Number [facility] [address] [employer] [place], [place] [id number] * Ammonia (09/13/2024 9:45 AM CAN FILLING ROOM SWEEPER) Ammonia 14 <=50 mcmol/L Blood 09/13/2024 9:45 AM CAN FILLING ROOM SWEEPER 09/13/2024 10:14 AM CAN FILLING ROOM SWEEPER Flo Villagran MD LAB BLOOD ORDERABLES Final R esult Performing Organization Address [facility] de Phone Number [facility] [address] [facility] [place] [address] * POCT glucose (09/13/2024 9:31 AM CAN FILLING ROOM SWEEPER) Glucose, POC 170 70 - 199 mg/dL Comment: For Glucose values <35 mg/dl when Hematocrit is >60 mg/dl,the test may not accurately detect significant hypoglycemia,and testing in the Laboratory should be considered if clinically indicated. Blood 09/13/2024 9:31 AM CAN FILLING ROOM SWEEPER 09/13/2024 9:31 AM CAN FILLING ROOM SWEEPER Abeba Ash MD LAB POCT ORDERABLES - DEVICE Final Result Performing Organization Address [facility] de Phone Number [facility] [address] [facility] [place] [address] * Lipase - Add on lab test (09/13/2024 9:25 AM CAN FILLING ROOM SWEEPER) Acceptable Yes Blood 09/13/2024 9:25 AM CAN FILLING ROOM SWEEPER 09/13/2024 9:25 AM CAN FILLING ROOM SWEEPER Narrative [facility] - 09/13/2024 9:26 AM CAN FILLING ROOM SWEEPER Name of Test->Lipase Flo Villagran MD LAB BLOOD ORDERABLES Final R esult Performing Organization Address [facility]/[place] de Phone Number [facility] [address] [facility] [place] [address] * Amylase - Add on lab test (09/13/2024 9:25 AM CAN FILLING ROOM SWEEPER) Acceptable Yes Blood 09/13/2024 9:25 AM CAN FILLING ROOM SWEEPER 09/13/2024 9:25 AM CAN FILLING ROOM SWEEPER Narrative [facility] - 09/13/2024 9:26 AM CAN FILLING ROOM SWEEPER Name of Test->Amylase Flo Villagran MD LAB BLOOD ORDERABLES Final R esult [facility] [address] Department [place] [address] * XR Chest 1 Vw (09/13/2024 8:30 AM CAN FILLING ROOM SWEEPER) Anatomical Region Laterality Modality Body, Chest N/A Computed Radiogr aphy 09/13/2024 9:34 AM CAN FILLING ROOM SWEEPER Impressions 09/13/2024 9:34 AM CAN FILLING ROOM SWEEPER Gastric tube tip overlies the gastric body, side port overlies the gastric antrum, possibly kinked at the side port. Patchy left retrocardiac opacities could reflect atelectasis, aspiration, or pneumonia. No pneumothorax or pleural effusion. Heart size and mediastinal contours normal Electronically signed by: Ana Luisa Benson M.D. Narrative 09/13/2024 9:34 AM CAN FILLING ROOM SWEEPER EXAMINATION: Chest 1 view. HISTORY: Check tube placement. Procedure Note Ana Luisa Benson MD - 09/13/2024 EXAMINATION: Chest 1 view. HISTORY: Check tube placement. IMPRESSION: Gastric tube tip overlies the gastric body, side port overlies the gastric antrum, possibly kinked at the side port. Patchy left retrocardiac opacities could reflect atelectasis, aspiration, or pneumonia. No pneumothorax or pleural effusion. Heart size and mediastinal contours normal Electronically signed by: Ana Luisa Benson M.D. Flo Villagran MD IMG XR PROCEDURES Final Resu lt * (ABNORMAL) eGFR (09/13/2024 8:11 AM CAN FILLING ROOM SWEEPER) eGFR 46(L) >=60 mL/min/1. 73 m2 Comment: Interpretive Data Reference Interval Normal >/= 90 mL/min/1.73m2 Mildly decreased* 60 - 89 mL/min/1.73m2 Mildly to moderately decreased 45 - 59 mL/min/1.73m2 Moderately to severely decreased 30 - 44 mL/min/1.73m2 Severely decreased 15 - 29 mL/min/1.73m2 Kidney Failure < 15 mL/min/1.73m2 *Relative to young adult level Estimated glomerular [...] interpretive data was last reviewed 2021. Blood 09/13/2024 8:11 AM CAN FILLING ROOM SWEEPER 09/13/2024 8:21 AM CAN FILLING ROOM SWEEPER Abeba Ash MD LAB BLOOD ORDERABLES Final R esult Performing Organization Address City/[facility]/ZIP Co de Phone Number [facility] [address] [employer] [place], [place] [id number] * Beta-hydroxybutyrate (09/13/2024 8:11 AM CAN FILLING ROOM SWEEPER) Beta-Hydroxybut yrate 0.5 <=0.5 mmol/L Blood 09/13/2024 8:11 AM CAN FILLING ROOM SWEEPER 09/13/2024 8:16 AM CAN FILLING ROOM SWEEPER Abeba Ash MD LAB BLOOD ORDERABLES Final R esult Performing Organization Address City/[facility]/ZIP Co de Phone Number [facility] [address] [place] [address] * (ABNORMAL) aPTT (09/13/2024 8:11 AM CAN FILLING ROOM SWEEPER) aPTT 72(H) 28 - 38 sec Comment: Interpretive Data Heparin therapeutic range: 66.0 - 100.0 seconds. Range based on correlation with therapeutic heparin activity range of 0.3 - 0.7 Units/mL. Current interpretive data was last revised on 2023. Blood 09/13/2024 8:11 AM CAN FILLING ROOM SWEEPER 09/13/2024 8:21 AM CAN FILLING ROOM SWEEPER Abeba Ash MD LAB BLOOD ORDERABLES Final R esult Performing Organization Address [facility] Co de Phone Number [facility] [address] [facility] [place] [address] * (ABNORMAL) Phosphorus (09/13/2024 8:11 AM CAN FILLING ROOM SWEEPER) Phosphorus, pl 2.1(L) 2.3 - 4.5 mg/dL Blood 09/13/2024 8:11 AM CAN FILLING ROOM SWEEPER 09/13/2024 8:16 AM CAN FILLING ROOM SWEEPER us Abeba Ash MD LAB BLOOD ORDERABLES Final R esult Performing Organization Address [facility] Co de Phone Number [facility] [address] [facility] [place] [address] * Magnesium (09/13/2024 8:11 AM CAN FILLING ROOM SWEEPER) Magnesium 1.9 1.4 - 2.5 mg/dL Blood 09/13/2024 8:11 AM CAN FILLING ROOM SWEEPER 09/13/2024 8:16 AM CAN FILLING ROOM SWEEPER Abeba Ash MD LAB BLOOD ORDERABLES Final R esult Performing Organization Address [facility] Co de Phone Number [facility] [address] [facility] [place] [address] * Lipase (09/13/2024 8:11 AM CAN FILLING ROOM SWEEPER) Lipase 25 10 - 99 Units/L Blood 09/13/2024 8:11 AM CAN FILLING ROOM SWEEPER 09/13/2024 8:21 AM CAN FILLING ROOM SWEEPER Abeba Ash MD LAB BLOOD ORDERABLES Final R esult Performing Organization Address [facility] Co de Phone Number [facility] [address] Department [place] [address] * Amylase (09/13/2024 8:11 AM CAN FILLING ROOM SWEEPER) Pathologist [facility] Amylase 48 30 - 99 Units/L Blood 09/13/2024 8:11 AM CAN FILLING ROOM SWEEPER 09/13/2024 8:21 AM CAN FILLING ROOM SWEEPER us Abeba Ash MD LAB BLOOD ORDERABLES Final R esult [facility] [address] [place] [address] * (ABNORMAL) Basic metabolic panel (09/13/2024 8:11 AM CAN FILLING ROOM SWEEPER) [facility] Sodium 147(H) 135 - 145 mmol/L Potassium, pl 3.7 3.3 - 4.9 mmol/L [facility] Chloride 112(H) 97 - 110 mmol/L [facility] CO2 21(L) 22 - 32 mmol/L [facility] Anion gap 14 2 - 15 mmol/L [facility] BUN 49(H) 6 - 25 mg/dL [facility] Creatinine 1.40(H) 0.60 - 1.10 mg/dL [facility] Glucose 147 70 - 199 mg/dL [facility] Comment: Interpretive Data Fasting glucose >/= 126 mg/dl is diagnostic for diabetes. Fasting is defined as no caloric intake for at least 8 hours. Fasting glucose between 100 mg/dl to 125 mg/dl is diagnostic of prediabetes. In a patient with classic symptoms of hyperglycemia or hyperglycemic crisis, a random glucose >/= 200 mg/dl is diagnostic for diabetes. In the absence of unequivocal hyperglycemia, results should be confirmed by repeat testing. The classification and Diagnosis of Diabetes Diabetes Care 2021; 46: S19-S40. Current interpretive data was last revised 2022. Calcium 8.6 8.5 - 10.3 mg/dL [facility] Blood 09/13/2024 8:11 AM CAN FILLING ROOM SWEEPER 09/13/2024 8:16 AM CAN FILLING ROOM SWEEPER us Abeba Ash MD LAB BLOOD ORDERABLES Final R esult Performing Organization Address [facility] Co de Phone Number [facility] [address] [place] [address] * (ABNORMAL) Blood gas, arterial (09/13/2024 7:58 AM CAN FILLING ROOM SWEEPER) [facility] pH, Art 7.38 7.35 - 7.45 PCO2, Arterial 39 35 - 45 mmHg [facility] PO2, Arterial 76(L) 83 - 108 mmHg [facility] HCO3 Art (Calculated) 23 20 - 30 mmol/L [facility] BE, art -2 mmol/L [facility] Comment: Interpretive Data No Reference Range Established Current Interpretive Data was last revised on 2017 O2 Sat Art (Calculated) 95 94 - 98 % [facility] Blood 09/13/2024 7:58 AM CAN FILLING ROOM SWEEPER 09/13/2024 8:02 AM CAN FILLING ROOM SWEEPER us Flo Villagran MD LAB BLOOD ORDERABLES Final R esult Performing Organization Address [facility] Co de Phone Number [facility] [address] [place] [address] * POCT glucose (09/13/2024 7:54 AM CAN FILLING ROOM SWEEPER) [facility] Glucose, POC 157 70 - 199 mg/dL Comment: For Glucose values <35 mg/dl when Hematocrit is >60 mg/dl,the test may not accurately detect significant hypoglycemia,and testing in the Laboratory should be considered if clinically indicated. Blood 09/13/2024 7:54 AM CAN FILLING ROOM SWEEPER 09/13/2024 7:54 AM CAN FILLING ROOM SWEEPER us Abeba Ash MD LAB POCT ORDERABLES - DEVICE Final Result Performing Organization Address [facility] Co de Phone Number [facility] [address] [place] [address] * POCT glucose (09/13/2024 6:04 AM CAN FILLING ROOM SWEEPER) [facility] Glucose, POC 149 70 - 199 mg/dL Comment: For Glucose values <35 mg/dl when Hematocrit is >60 mg/dl,the test may not accurately detect significant hypoglycemia,and testing in the Laboratory should be considered if clinically indicated. Blood 09/13/2024 6:04 AM CAN FILLING ROOM SWEEPER 09/13/2024 6:04 AM CAN FILLING ROOM SWEEPER us Abeba Ash MD LAB POCT ORDERABLES - DEVICE Final Result [facility] [address] Department [place] [address] * (ABNORMAL) Blood culture Blood (09/13/2024 5:22 AM CAN FILLING ROOM SWEEPER) [facility] Direct Specimen Exam Molecular Analysis: Staphylococcus aureus, methicillin-suscep tible (MSSA) detected by the [employer] Blood Culture Identification Panel. This test does not exclude the possibility of a mixed bacterial infection. Please consider this result in the context of clinical findings and evaluate the possibility of antimicrobial de-escalation. Test result called to and read back by Ceferino Grier RN on 09/13/2024 22:28:52 by [email or web address] Direct Specimen Exam Stain: Gram Positive Cocci in clusters [facility] Report Final Report: Staphylococcus aureus, methicillin susceptible (.) [facility] Organism STAPHYLOCOCCUS AUREUS, METHICILLIN SUSCEPTIBLE [facility] Blood 09/13/2024 5:22 AM CAN FILLING ROOM SWEEPER 09/13/2024 5:48 AM CAN FILLING ROOM SWEEPER Narrative [facility] - 09/15/2024 7:42 AM CAN FILLING ROOM SWEEPER From a different site than #1. Collection->Peripheral Interpretive Data 1. Blood cultures are incubated and monitored continuously for 5 days (120 hours). The first negative report is issued within 24 hours of receipt in the laboratory. 2. All positive cultures are resulted and called to physicians/care providers as soon as they are detected. 3. A rapid molecular test for organism identification may be performed using the [employer] Blood Culture Identification panel. This assay detects microbial DNA in a blood culture broth. This assay has been cleared by the [place] Food and Drug Administration and its performance characteristics have been verified by the [facility]. Interpretive data was last revised on September 11, 2022. Organism Antibiotic Method Susceptibility Staphylococcus aureus, methicillin susceptible Cefazolin (ROBERTO CARLOS) INTERPRETATION Susceptible Staphylococcus aureus, methicillin susceptible Clindamycin (ROBERTO CARLOS) INTERPRETATION Resistant Staphylococcus aureus, methicillin susceptible Erythromycin (ROBERTO CARLOS) INTERPRETATION Resistant Staphylococcus aureus, methicillin susceptible Oxacillin (ROBERTO CARLOS) INTERPRETATION Susceptible Staphylococcus aureus, methicillin susceptible Tetracycline (ROBERTO CARLOS) INTERPRETATION Susceptible Staphylococcus aureus, methicillin susceptible Trimethoprim with Sulfamethoxazole (ROBERTO CARLOS) INTERPRETATION Susceptible Staphylococcus aureus, methicillin susceptible Vancomycin (ROBERTO CARLOS) INTERPRETATION <=0.5 mcg/mL: Susceptible Result [facility] Abeba Ash MD LAB MICROBIOLOGY - GENERAL O RDERABLES Final Result Performing Organization Address [facility]/ZIP Co de Phone Number [facility] [address] [employer] [place], [place] [id number] * POCT glucose (09/13/2024 5:06 AM CAN FILLING ROOM SWEEPER) Glucose, POC 152 70 - 199 mg/dL Comment: For Glucose values <35 mg/dl when Hematocrit is >60 mg/dl,the test may not accurately detect significant hypoglycemia,and testing in the Laboratory should be considered if clinically indicated. Blood 09/13/2024 5:06 AM CAN FILLING ROOM SWEEPER 09/13/2024 5:06 AM CAN FILLING ROOM SWEEPER Result [facility] Abeba Ash MD LAB POCT ORDERABLES - DEVICE Final Result Performing Organization Address City/[facility]/ZIP Co de Phone Number [facility] [address] [place] [address] * POCT glucose (09/13/2024 4:05 AM CAN FILLING ROOM SWEEPER) Glucose, POC 189 70 - 199 mg/dL Comment: For Glucose values <35 mg/dl when Hematocrit is >60 mg/dl,the test may not accurately detect significant hypoglycemia,and testing in the Laboratory should be considered if clinically indicated. Blood 09/13/2024 4:05 AM CAN FILLING ROOM SWEEPER 09/13/2024 4:05 AM CAN FILLING ROOM SWEEPER Abeba Ash MD LAB POCT ORDERABLES - DEVICE Final Result [facility] [address] Department [place] [address] * CT Head WO Contrast (09/13/2024 3:40 AM CAN FILLING ROOM SWEEPER) Anatomical Region Laterality Modality Head and Neck N/A Computed Tomogra phy 09/13/2024 3:31 AM CAN FILLING ROOM SWEEPER Addenda Addendum by Zion Rodriguez MD on 09/13/2024 7:20 AM CAN FILLING ROOM SWEEPER The Non Critical results were discussed with Dr. Flo Villagran by Wei Godinez, Direct Marketing Manager on 09/13/2024 at 7:16 Edited by: Wei Godinez Electronically signed by: Zion Rodriguez M.D. Impressions 09/13/2024 6:55 AM CAN FILLING ROOM SWEEPER 1. Small lucency in the right thalamus suspicious for age indeterminate lacunar infarct, new compared to CT 09/22/2021. If there is concern for acute infarct further evaluation can be made with MRI. 2. Otherwise no CT evidence of acute intracranial abnormality. 3. Hyperdense material in the right globe likely intraocular silicone and postoperative in nature. Correlate with history. For the purposes of billing and quality technician, this study was initially interpreted by teleradiology. There is a non-emergent discrepancy that does not immediately impact patient care. Electronically signed by: Zion Rodriguez M.D. Narrative 09/13/2024 6:55 AM CAN FILLING ROOM SWEEPER EXAM:CT HEAD WO CONTRAST INDICATION: Right pupil non-reactive COMPARISON: CT 09/22/2021 TECHNIQUE: Standard noncontrast axial CT sections through the head. FINDINGS: Motion limited exam. Brain Parenchyma: New small lucency in the right thalamus suspicious for age indeterminate lacunar infarct not seen on CT 09/22/2021. No acute hemorrhage. Otherwise no loss of kc-white matter differentiation. No mass, mass effect, or midline shift. Calcifications of the cavernous internal carotid arteries bilaterally. Ventricles and Sulci: Normal for age. Extra-Axial Spaces: No extra-axial fluid collection. Orbits: Bilateral lens extractions. Oval hyperdense material in the right globe likely intraocular silicone and postoperative in nature. Paranasal Sinuses: Clear. Mastoid Air Cells: Clear. Cranium: Intact. Extracranial Soft Tissues: Unchanged nodular subcutaneous soft tissue induration in the right frontal scalp. No acute abnormality. Procedure Note Zion Rodriguez MD - 09/13/2024 EXAM:CT HEAD WO CONTRAST INDICATION: Right pupil non-reactive COMPARISON: CT 09/22/2021 TECHNIQUE: Standard noncontrast axial CT sections through the head. FINDINGS: Motion limited exam. Brain Parenchyma: New small lucency in the right thalamus suspicious for age indeterminate lacunar infarct not seen on CT 09/22/2021. No acute hemorrhage. Otherwise no loss of kc-white matter differentiation. No mass, mass effect, or midline shift. Calcifications of the cavernous internal carotid arteries bilaterally. Ventricles and Sulci: Normal for age. Extra-Axial Spaces: No extra-axial fluid collection. Orbits: Bilateral lens extractions. Oval hyperdense material in the right globe likely intraocular silicone and postoperative in nature. Paranasal Sinuses: Clear. Mastoid Air Cells: Clear. Cranium: Intact. Extracranial Soft Tissues: Unchanged nodular subcutaneous soft tissue induration in the right frontal scalp. No acute abnormality. IMPRESSION: 1. Small lucency in the right thalamus suspicious for age indeterminate lacunar infarct, new compared to CT 09/22/2021. If there is concern for acute infarct further evaluation can be made with MRI. 2. Otherwise no CT evidence of acute intracranial abnormality. 3. Hyperdense material in the right globe likely intraocular silicone and postoperative in nature. Correlate with history. For the purposes of billing and quality technician, this study was initially interpreted by teleradiology. There is a non-emergent discrepancy that does not immediately impact patient care. Electronically signed by: Zion Rodriguez M.D. Abeba Ash MD IM CT PROCEDURES Edited Res ult - Final * (ABNORMAL) POCT glucose (09/13/2024 3:15 AM CAN FILLING ROOM SWEEPER) Glucose, POC 283(H) 70 - 199 mg/dL Comment: For Glucose values <35 mg/dl when Hematocrit is >60 mg/dl,the test may not accurately detect significant hypoglycemia,and testing in the Laboratory should be considered if clinically indicated. Blood 09/13/2024 3:15 AM CAN FILLING ROOM SWEEPER 09/13/2024 3:15 AM CAN FILLING ROOM SWEEPER Abeba Ash MD LAB POCT ORDERABLES - DEVICE Final Result Performing Organization Address [facility]/ZIP Co de Phone Number [facility] [address] [place] [address] * (ABNORMAL) Urinalysis reflex to microscopic and culture Urine (09/13/2024 2:59 AM CAN FILLING ROOM SWEEPER) Color, ur Yellow Yellow Clarity, ur Turbid(A) Clear [facility] Specific gravity, ur 1.016 1.003 - 1.030 [facility] pH, urine 5.5 [facility] Comment: Interpretive Data U rine pH is affected by diet, medications, systemic acid-base disturbances, and renal tubular function. pH may affect urinary stone formation. For example, urine pH below 6.0 may help reduce the tendency for calcium phosphate stones and pH greater than 6.0 may reduce the tendency for uric acid stone formation. Source: [facility] Current Interpretive Data was last revised on 2017 Protein, ur ql 1+(A) Negative [facility] Glucose, ur ql 4+(A) Negative [facility] Ketones, ur 2+(A) Negative [facility] Bilirubin, ur Negative Negative [facility] Blood, ur Trace(A) Negative [facility] Urobilinogen, ur <2.0 <2.0 mg/dL [facility] Nitrite, ur Negative Negative [facility] Leukocyte esterase, ur 4+(A) Negative [facility] UA reflex comment Reflex to microscopic UA will be performed. [facility] Urine 09/13/2024 2:59 AM CAN FILLING ROOM SWEEPER 09/13/2024 3:04 AM CAN FILLING ROOM SWEEPER Abeba Ash MD LAB MICROBIOLOGY - GENERAL O RDERABLES Final Result Performing Organization Address [facility] Co de Phone Number [facility] [address] [place] [address] * (ABNORMAL) Urinalysis, microscopic only (09/13/2024 2:59 AM CAN FILLING ROOM SWEEPER) WBC, ur 21-50(A) 0 - 5 /HPF RBC, ur >50(A) 0 - 2 /HPF [facility] Epithelial cells, squamous, ur 6-10(A) 0 - 5 /HPF [facility] Comment:Suggestive of contam ination. Consider recollection by clean catch. Bacteria, ur 4+(A) [facility] Culture Reflex Comment Reflex to urine culture will be performed. [facility] Urine 09/13/2024 2:59 AM CAN FILLING ROOM SWEEPER 09/13/2024 3:32 PM CAN FILLING ROOM SWEEPER Abeba Ash MD LAB URINE ORDERABLES Final R esult Performing Organization Address [facility] Co de Phone Number [facility] [address] [place] [address] * (ABNORMAL) Urine culture Urine (09/13/2024 2:59 AM CAN FILLING ROOM SWEEPER) Report Final Report: Greater than or equal to 100,000 colonies/ml of Lactobacillus species Susceptibility not performed on this isolate (.) Organism LACTOBACILLUS SPECIES [facility] Urine 09/13/2024 2:59 AM CAN FILLING ROOM SWEEPER 09/13/2024 3:41 PM CAN FILLING ROOM SWEEPER Narrative [facility] - 09/14/2024 12:08 PM CAN FILLING ROOM SWEEPER Urine culture reflexed based upon urinalysis results. us Abeba Ash MD LAB MICROBIOLOGY - GENERAL O RDERABLES Final Result Performing Organization Address [facility] Co de Phone Number [facility] [address] [place] [address] * (ABNORMAL) POCT glucose (09/13/2024 2:03 AM CAN FILLING ROOM SWEEPER) Glucose, POC 260(H) 70 - 199 mg/dL Comment: For Glucose values <35 mg/dl when Hematocrit is >60 mg/dl,the test may not accurately detect significant hypoglycemia,and testing in the Laboratory should be considered if clinically indicated. Blood 09/13/2024 2:03 AM CAN FILLING ROOM SWEEPER 09/13/2024 2:03 AM CAN FILLING ROOM SWEEPER Abeba Ash MD LAB POCT ORDERABLES - DEVICE Final Result Performing Organization Address City/[facility]/ZIP Co de Phone Number [facility] [address] Department [place] [address] * ECG 12 lead (09/13/2024 1:58 AM CAN FILLING ROOM SWEEPER) 09/13/2024 1:58 AM CAN FILLING ROOM SWEEPER Narrative [facility] - 09/13/2024 9:32 PM CAN FILLING ROOM SWEEPER Vent Rate: 134 bpm RR Interval: 445 msec [place] Interval: 118 msec QRS Duration: 87 msec QT Interval: 331 msec QTC Interval: 410 msec P-R-T [place]: 66 - -15 - 124 degrees IMPRESSION: SINUS TACHYCARDIA WITH SHORT [place] INTERVAL ST DEVIATION AND MODERATE T-WAVE ABNORMALITY, CONSIDER LATERAL ISCHEMIA ABNORMAL ECG Electronically Signed By: Rene Nicole MD Abeba Ash MD ECG ORDERABLES Final Result Performing Organization Address [facility] Co de Phone Number [facility] * (ABNORMAL) Respiratory pathogen panel Nasopharyngeal (09/13/2024 1:50 AM CAN FILLING ROOM SWEEPER) Pathologist [facility] Influenza A/2009 RNA Detected(A) Not Detected [facility] Influenza B RNA Not Detected Not Detected [facility] RSV RNA Not Detected Not Detected [facility] COVID-19 RNA Not Detected Not Detected [facility] Coronavirus 229E RNA Not Detected Not Detected [facility] Coronavirus HKU1 RNA Not Detected Not Detected [facility] Coronavirus NL63 RNA Not Detected Not Detected [facility] Coronavirus OC43 RNA Not Detected Not Detected [facility] Adenovirus DNA Not Detected Not Detected [facility] Metapneumovirus RNA Not Detected Not Detected [facility] Rhinovirus/Enterov irus RNA Not Detected Not Detected [facility] Parainfluenza 1 RNA Not Detected Not Detected [facility] Parainfluenza 2 RNA Not Detected Not Detected [facility] Parainfluenza 3 RNA Not Detected Not Detected [facility] Parainfluenza 4 RNA Not Detected Not Detected [facility] B. pertussis DNA Not Detected Not Detected [facility] B. parapertussis DNA Not Detected Not Detected [facility] C. pneumoniae DNA Not Detected Not Detected [facility] M. pneumoniae DNA Not Detected Not Detected [facility] Comment: Interpretive Data The [employer] FilmArray Respiratory Panel (RP2.1) assay is a multiplexed real-time PCR based nucleic acid test capable of simultaneous qualitative detection and identification of multiple respiratory viral and bacterial nucleic acids, including SARS Coronavirus 2 (the causative agent of COVID-19). The following bacteria, viruses and virus subtypes can be identified using the [employer] RP2.1 assay: Bordetella pertussis, Bordetella parapertussis, Chlamydia pneumoniae, Mycoplasma pneumoniae, Adenovirus, SARS Coronavirus 2, seasonal coronaviruses (Coronavirus HKU1, Coronavirus NL63, Coronavirus 229E, and Coronavirus OC43), Influenza A, Influenza A subtype H1, Influenza A subtype H3, Influenza A subtype 2009 H1, Influenza B, Metapneumovirus, Parainfluenza 1, Parainfluenza 2, Parainfluenza 3, Parainfluenza 4, RSV, Rhinovirus/Enterovirus. Due to the genetic similarity between human Rhinovirus and Enterovirus, the [employer] RP2.1 assay cannot reliably differentiate them. Coronavirus OC43 may cross-react with some isolates of Coronavirus HKU1. A dual positive result may be due to cross-reactivity or may indicate a co- infection. The detection and identification of specific viral and bacterial nucleic acids from individuals exhibiting signs and symptoms of a respiratory infection aids in the diagnosis of respiratory infection if used in conjunction with other clinical and epidemiological information. The results of this test should not be used as the sole basis for diagnosis, treatment, or other management decisions. Negative results in the setting of a respiratory illness may be due to infection with pathogens that are not detected by this test. Positive results do not rule out infection/co-infection with other organisms. The agent(s) detected by the Film[employer] RP2.1 may not be the definite cause of disease. Additional testing (lab, imaging, etc.) may be necessary when evaluating a patient with possible respiratory tract infection. The [employer] RP2.1 assay has FDA clearance for testing of [employer] swabs. The performance characteristics of this assay have been determined by [facility]. Current interpretive data was last revised on 2021. Nasopharyngeal 09/13/2024 1: 50 AM CAN FILLING ROOM SWEEPER 09/13/2024 2:04 AM CAN FILLING ROOM SWEEPER Narrative [facility] - 09/13/2024 2:57 AM CAN FILLING ROOM SWEEPER Is the Patient experiencing symptoms consistent with COVID?->Yes Surveillance testing for transplant patient?->No Abeba Ash MD LAB MICROBIOLOGY - GENERAL O RDERABLES Final Result [facility] [address] Department [place] [address] [facility] * (ABNORMAL) Blood culture Blood (09/13/2024 1:50 AM CAN FILLING ROOM SWEEPER) Direct Specimen Exam Stain: Gram Positive Cocci in clusters Test result called to and read back by Sandra Joiner RN on 09/14/2024 12:27:01 by PDC. Report Final Report: Staphylococcus aureus, methicillin susceptible Susceptibility reported on this organism on previous culture [id number] (.) [facility] Organism STAPHYLOCOCCUS AUREUS, METHICILLIN SUSCEPTIBLE [facility] Blood 09/13/2024 1:50 AM CAN FILLING ROOM SWEEPER 09/13/2024 2:17 AM CAN FILLING ROOM SWEEPER Narrative [facility] - 09/15/2024 10:49 AM CAN FILLING ROOM SWEEPER Collection->Peripheral Interpretive Data 1. Blood cultures are incubated and monitored continuously for 5 days (120 hours). The first negative report is issued within 24 hours of receipt in the laboratory. 2. All positive cultures are resulted and called to physicians/care providers as soon as they are detected. 3. A rapid molecular test for organism identification may be performed using the [employer] Blood Culture Identification panel. This assay detects microbial DNA in a blood culture broth. This assay has been cleared by the [place] Food and Drug Administration and its performance characteristics have been verified by the [facility]. Interpretive data was last revised on September 11, 2022. Abeba Ash MD LAB MICROBIOLOGY - GENERAL O RDERABLES Final Result Performing Organization Address [facility]/[place] de Phone Number [facility] [address] Department of [employer] [place], [place] [id number] * (ABNORMAL) Troponin T high-sensitivity (09/13/2024 1:46 AM CAN FILLING ROOM SWEEPER) Pathologist [facility] Trop T hs 116(H) <=14 ng/L Comment: Interpretive Data For further hscTnT resources including the diagnostic algorithm and an aid in interpretation, copy and paste this link: https://nrl.testcatalog.org/show/hsTrop Current Interpretive Data last revised 2020. Blood 09/13/2024 1:46 AM CAN FILLING ROOM SWEEPER 09/13/2024 1:53 AM CAN FILLING ROOM SWEEPER us Abeba Ash MD LAB BLOOD ORDERABLES Final R esult Performing Organization Address [facility]/[place] de Phone Number [facility] [address] [place] [address] * (ABNORMAL) Lactate (09/13/2024 1:46 AM CAN FILLING ROOM SWEEPER) [facility] Lactate 2.6(H) 0.7 - 2.0 mmol/L Blood 09/13/2024 1:46 AM CAN FILLING ROOM SWEEPER 09/13/2024 1:51 AM CAN FILLING ROOM SWEEPER us Abeba Ash MD LAB BLOOD ORDERABLES Final R esult Performing Organization Address [facility]/[place] de Phone Number [facility] [address] [place] [address] * (ABNORMAL) eGFR (09/13/2024 1:46 AM CAN FILLING ROOM SWEEPER) Pathologist [facility] eGFR 44(L) >=60 mL/min/1. 73 m2 Comment: Interpretive Data Reference Interval Normal >/= 90 mL/min/1.73m2 Mildly decreased* 60 - 89 mL/min/1.73m2 Mildly to moderately decreased 45 - 59 mL/min/1.73m2 Moderately to severely decreased 30 - 44 mL/min/1.73m2 Severely decreased 15 - 29 mL/min/1.73m2 Kidney Failure < 15 mL/min/1.73m2 *Relative to young adult level Estimated glomerular [...] interpretive data was last reviewed 2021. Blood 09/13/2024 1:46 AM CAN FILLING ROOM SWEEPER 09/13/2024 1:53 AM CAN FILLING ROOM SWEEPER us Abeba Ash MD LAB BLOOD ORDERABLES Final R esult [facility] [address] [place] [address] * (ABNORMAL) Differential, auto (09/13/2024 1:46 AM CAN FILLING ROOM SWEEPER) Neutrophil abs 6.6(H) 1.5 - 6.5 K/cumm Imm gran abs 0.0 0.0 - 0.1 K/cumm [facility] Lymphocyte abs 0.5(L) 0.8 - 3.3 K/cumm [facility] Monocyte abs 0.7 0.2 - 0.8 K/cumm [facility] Eosinophil abs 0.0 0.0 - 0.5 K/cumm [facility] Basophil abs 0.0 0.0 - 0.1 K/cumm [facility] Neutrophil pct 84.7 % [facility] Comment: Interpretive Data Percent cell count reference ranges are not reported, since discordance with absolute values may lead to misinterpretation of CBC data. Current Interpretive Data was last revised on 2017. Imm gran pct 0.5 % [facility] Comment: Interpretive Data Percent cell count reference ranges are not reported, since discordance with absolute values may lead to misinterpretation of CBC data. Current Interpretive Data was last revised on 2017. Lymphocyte pct 5.8 % [facility] Comment: Interpretive Data Percent cell count reference ranges are not reported, since discordance with absolute values may lead to misinterpretation of CBC data. Current Interpretive Data was last revised on 2017. Monocyte pct 8.9 % [facility] Comment: Interpretive Data Percent cell count reference ranges are not reported, since discordance with absolute values may lead to misinterpretation of CBC data. Current Interpretive Data was last revised on 2017. Eosinophil pct 0.0 % [facility] Comment: Interpretive Data Percent cell count reference ranges are not reported, since discordance with absolute values may lead to misinterpretation of CBC data. Current Interpretive Data was last revised on 2017. Basophil pct 0.1 % [facility] Comment: Interpretive Data Percent cell count reference ranges are not reported, since discordance with absolute values may lead to misinterpretation of CBC data. Current Interpretive Data was last revised on 2017. Blood 09/13/2024 1:46 AM CAN FILLING ROOM SWEEPER 09/13/2024 1:53 AM CAN FILLING ROOM SWEEPER us Abeba Ash MD LAB BLOOD ORDERABLES Final R esult [facility] [address] Department [place] [address] * (ABNORMAL) Pro B-type natriuretic peptide (09/13/2024 1:46 AM CAN FILLING ROOM SWEEPER) NT-proBNP 6,745(H) <=300 pg/mL Comment: Interpretive Comments: A. Dyspnea in Acute Care Setting All Ages: < 300 pg/ml, acute heart failure unlikely. < 50 yrs: 300 - 450 pg/ml, further investigation warranted. > 450 pg/ml, acute heart failure likely. 50 - 74 yrs: 300 - 900 pg/ml, further investigation warranted. > 900 pg/ml, acute heart failure likely . > or = 75 yrs: 450 - 1800 pg/ml, further investigation warranted. > 1800 pg/ml, acute heart failure likely. B. Non-acute Setting < 75 yrs < 125 pg/ml, rules out heart failure. > or = 125 pg/ml, further investigation warranted. > or = 75 yrs < 450 pg/ml, rules out heart failure. > or = 450 pg/ml, further investigation warranted. - Knowledge of each individual patient's NT-proBNP range may be more useful than using similar cut-points for every patient. Please note that marked elevations in NT-proBNP levels may be observed in state other than Left Ventricular Congestive Failure, including: acute coronary syndromes, right heart strain/failure (including pulmonary embolism and cor pulmonale), critical illness, renal failure, as well as advanced age. - References: 1. Tana PONCE et.al. Eur Heart J. 2006:27:330-337. 2. Daphney RW, Zuly AM. J. AM Quique Cardiol: Cardiovasc Imag. 2009;2: 216- 225. Interpretive Data Last Revised Date: 2018. Blood 09/13/2024 1:46 AM CAN FILLING ROOM SWEEPER 09/13/2024 1:53 AM CAN FILLING ROOM SWEEPER Abeba Ash MD LAB BLOOD ORDERABLES Final R esult [facility] [address] Department [place] [address] * (ABNORMAL) CBC with auto differential (09/13/2024 1:46 AM CAN FILLING ROOM SWEEPER) WBC 7.7 3.8 - 9.9 K/cumm Hgb 11.9 11.9 - 15.5 g/dL [facility] Hct 39.4 35.6 - 45.5 % [facility] Plt 111(L) 150 - 400 K/cumm [facility] MPV 12.8(H) 9.1 - 12.3 fL [facility] RBC 4.15 3.90 - 5.20 M/cumm [facility] MCV 94.9 81.3 - 96.4 fL [facility] MCH 28.7 27.1 - 33.3 pg [facility] MCHC 30.2(L) 32.3 - 35.7 g/dL [facility] RDW CV 14.6 11.1 - 14.9 % [facility] RDW SD 50.7(H) 35.7 - 48.1 fL [facility] NRBC abs 0.00 0.00 - 0.01 K/cumm [facility] Blood 09/13/2024 1:46 AM CAN FILLING ROOM SWEEPER 09/13/2024 1:53 AM CAN FILLING ROOM SWEEPER Abeba Ash MD LAB BLOOD ORDERABLES Final R esult Performing Organization Address [facility] Co de Phone Number [facility] [address] [place] [address] * (ABNORMAL) aPTT (09/13/2024 1:46 AM CAN FILLING ROOM SWEEPER) aPTT 25(L) 28 - 38 sec Comment: Interpretive Data Heparin therapeutic range: 66.0 - 100.0 seconds. Range based on correlation with therapeutic heparin activity range of 0.3 - 0.7 Units/mL. Current interpretive data was last revised on 2023. Blood 09/13/2024 1:46 AM CAN FILLING ROOM SWEEPER 09/13/2024 1:53 AM CAN FILLING ROOM SWEEPER Abeba Ash MD LAB BLOOD ORDERABLES Final R [facility] Performing Organization Address [facility] de Phone Number [facility] [address] [facility] [place] [address] * Protime-INR (09/13/2024 1:46 AM CAN FILLING ROOM SWEEPER) PT 10.0 9.7 - 13.0 sec INR 0.93 0.90 - 1.20 [facility] Comment: Interpretive data Oral anticoagulant therapeutic ranges: Venous thromboembolism prophylaxis or treatment: 2.0-3.0 CARDIOLOGY Standard range: 2.0-3.0 High-intensity range: 2.5-3.5 Refer to indication-specific guidelines for appropriate target ranges for prosthetic heart valve replacement. Current interpretive data was last revised on 2019. Blood 09/13/2024 1:46 AM CAN FILLING ROOM SWEEPER 09/13/2024 1:53 AM CAN FILLING ROOM SWEEPER Result [facility] Abeba Ash MD LAB BLOOD ORDERABLES Final R esult Performing Organization Address [facility] Co de Phone Number [facility] [address] [facility] [place] [address] * Type and screen (09/13/2024 1:46 AM CAN FILLING ROOM SWEEPER) ABO Rh A Positive Charles, indirect Negative [facility] Blood 09/13/2024 1:46 AM CAN FILLING ROOM SWEEPER 09/13/2024 1:51 AM CAN FILLING ROOM SWEEPER Narrative [facility] - 09/13/2024 2:31 AM CAN FILLING ROOM SWEEPER Has the patient had Daratumumab or Isatuximab in the past 6 months?->Unknown Result [facility] Abeba Ash MD LAB BLOOD BANK TEST ORDERABL ES Final Result Performing Organization Address [facility] de Phone Number [facility] [address] [facility] [place] [address] * Phosphorus (09/13/2024 1:46 AM CAN FILLING ROOM SWEEPER) Phosphorus, pl 2.7 2.3 - 4.5 mg/dL Blood 09/13/2024 1:46 AM CAN FILLING ROOM SWEEPER 09/13/2024 1:53 AM CAN FILLING ROOM SWEEPER Abeba Ash MD LAB BLOOD ORDERABLES Final R esult Performing Organization Address [facility] Co de Phone Number [facility] [address] [facility] [place] [address] * Magnesium (09/13/2024 1:46 AM CAN FILLING ROOM SWEEPER) Magnesium 2.1 1.4 - 2.5 mg/dL Blood 09/13/2024 1:46 AM CAN FILLING ROOM SWEEPER 09/13/2024 1:53 AM CAN FILLING ROOM SWEEPER Abeba Ash MD LAB BLOOD ORDERABLES Final R esult Performing Organization Address [facility]/ZIP Co de Phone Number [facility] [address] Department [place] [address] * (ABNORMAL) Hemoglobin A1c (09/13/2024 1:46 AM CAN FILLING ROOM SWEEPER) [facility] Hgb A1C 9.1(H) 4.0 - 5.6 % Estimated Average Glucose 214 mg/dL [facility] Comment: The ADA recommends reporting an estimated Average Glucose (eAG) with all Hemoglobin A1c results using the equation derived from a study of 507 normal and diabetic adults. Minority populations were underrepresented and children were not included. (Diabetes Care 31:0936-8861, 2008). The eAG is not equivalent to a fasting glucose. Blood 09/13/2024 1:46 AM CAN FILLING ROOM SWEEPER 09/13/2024 1:53 AM CAN FILLING ROOM SWEEPER Abeba Ash MD LAB BLOOD ORDERABLES Final R esult Performing Organization Address [facility] de Phone Number [facility] [address] [place] [address] * (ABNORMAL) Comprehensive metabolic panel (09/13/2024 1:46 AM CAN FILLING ROOM SWEEPER) [facility] Sodium 151(H) 135 - 145 mmol/L Potassium, pl 4.0 3.3 - 4.9 mmol/L [facility] Chloride 110 97 - 110 mmol/L [facility] CO2 20(L) 22 - 32 mmol/L [facility] Anion gap 21(H) 2 - 15 mmol/L [facility] BUN 47(H) 6 - 25 mg/dL [facility] Creatinine 1.47(H) 0.60 - 1.10 mg/dL [facility] Glucose 264(H) 70 - 199 mg/dL [facility] Comment: Interpretive Data Fasting glucose >/= 126 mg/dl is diagnostic for diabetes. Fasting is defined as no caloric intake for at least 8 hours. Fasting glucose between 100 mg/dl to 125 mg/dl is diagnostic of prediabetes. In a patient with classic symptoms of hyperglycemia or hyperglycemic crisis, a random glucose >/= 200 mg/dl is diagnostic for diabetes. In the absence of unequivocal hyperglycemia, results should be confirmed by repeat testing. The classification and Diagnosis of Diabetes Diabetes Care 2021; 46: S19-S40. Current interpretive data was last revised 2022. Calcium 9.2 8.5 - 10.3 mg/dL [facility] Bilirubin, total 0.3 0.1 - 1.2 mg/dL [facility] Protein, pl 7.0 6.5 - 8.5 g/dL [facility] Albumin 3.4(L) 3.5 - 5.0 g/dL [facility] Alk phos 202(H) 40 - 130 Units/L [facility] ALT 48(H) 7 - 45 Units/L [facility] AST 45 10 - 45 Units/L [facility] Blood 09/13/2024 1:46 AM CAN FILLING ROOM SWEEPER 09/13/2024 1:53 AM CAN FILLING ROOM SWEEPER us Abeba Ash MD LAB BLOOD ORDERABLES Final R esult Performing Organization Address City/[facility]/ZIP Co de Phone Number [facility] [address] [place], [place] [id number] * (ABNORMAL) POCT glucose (09/13/2024 1:30 AM CAN FILLING ROOM SWEEPER) Pathologist [facility] Glucose, POC 248(H) 70 - 199 mg/dL Comment: For Glucose values <35 mg/dl when Hematocrit is >60 mg/dl,the test may not accurately detect significant hypoglycemia,and testing in the Laboratory should be considered if clinically indicated. Blood 09/13/2024 1:30 AM CAN FILLING ROOM SWEEPER 09/13/2024 1:30 AM CAN FILLING ROOM SWEEPER us Abeba Ash MD LAB POCT ORDERABLES - DEVICE Final Result [facility] [address] [place], [place] [id number] * (ABNORMAL) Serum lipid panel (06/26/2014 8:11 AM CAN FILLING ROOM SWEEPER) [facility] Cholesterol 328(H) 40 - 199 mg/dl HISTORICAL RESULTS Comment: Interpretive Data The National Cholesterol Education Program (NCEP) has set the following guidelines (reference values) for total cholesterol: Desirable: Less than 200 mg/dL Borderline High: 200 - 239 mg/dL High: Greater than or equal to 240 mg/dL. Current interpretive data was last revised on 2012. Triglycerides 197(H) 0 - 150 mg/dl HISTORICAL RESULTS Comment: Interpretive Data The National Cholesterol Education Program (NCEP) has set the following guidelines (reference values) for triglycerides: Normal: Less than 150 mg/dL Borderline High: 150 - 199 mg/dL High: 200 - 499 mg/dL Very High: Greater than or equal to 500 mg/dL. Current interpretive data was last revised on 2012. HDL 56 40 - 60 mg/dl HISTORICAL RESULTS LDL 233(H) 30 - 99 mg/dl HISTORICAL RESULTS Comment: Interpretive Data Optimal: Less than 100 mg/dL Near Optimal: 100 - 129 mg/dL Borderline high: 130 - 159 mg/dL High: Greater than 160 mg/dL In addition, if the Triglyceride value is greater than 400 mg/dL, the calculation may be inaccurate. Current interpretive data was last revised on 2012. Serum 06/26/2014 8:11 AM CAN FILLING ROOM SWEEPER Historical Provider LAB BLOOD ORDERABLES Salma pfeiffer Result HISTORICAL RESULTS * COLONOSCOPY REPORT (06/07/2014) Anatomical Region Laterality Modality Other Narrative 06/07/2014 Ordered by an unspecified provider. Historical Provider GI PROCEDURE ORDERABLES F inal Result from Last 3 Months or Most Recently Relevant to Health Maintenance Insurance [facility] MEDICARE ADVANTAGE [facility] MEDICARE ADVANTAGE IDPA IDPA [facility] MEDICARE ADVANTAGE Advance Directives For more information, please contact: [phone] * LIMITED - No CPR (Latest Code Status on File) Date Activated Date Inactivated Comments 09/25/2024 9:51 AM 10/01/2024 9:27 PM Question Answer Comments Provide aggressive medical m anagement before a full cardiopulmonary arrest occurs. Use antibiotics, IV Fluids, and medical treatment unless specifically selected below: No intubationNo cardioversion * Full Code Date Activated Date Inactivated Comments 09/13/2024 1:27 AM 09/25/2024 9:51 AM * Full Code Date Activated Date Inactivated Comments 09/22/2021 7:24 PM 09/24/2021 8:45 PM Healthcare Agents on File Name Relationship Healthcare Agent Relationship Communication SOFIA MILLAN Daughter in Law Health Care Agent [phone] (Mobile ) Care Teams Product Specialist Relationship Specialty Start Date End Date Donte Lucas PA [address] [place] [id number] PCP - General Physician Pan Shaker 08/26/24
--- OUTSIDE RECORDS SUMMARY | 2024-10-28 12:33 | XMS_ITS | Encounter Summary ---
Author Organization [facility] Address [address] [place] [address] Phone Care Team Providers Care Factory Hand Name Role Phone ShadyalbertoDonte [facility] Primary Care Provider [phone] Reason for Visit * Auth/Cert (Routine) Specialty Diagnoses / Procedures Referred By Jadyn t Referred To Contact Referral ID Status Reason Start Date Expiration Date Visits Re quested Visits Authorized [id number] [phone] Encounter Details Date Type Department Care Team (Latest Contact Info) Description 10/24/2024 2:00 AM CDT Home Care Visit [facility] [address] [place] [address] Mai Bass, RN [place] SN - [place] RESUMPTION OF CARE Social History Tobacco Use Types Packs/Day Years Used Date Smoking Tobacco: Never Assessed Comments Unknown Sex and Gender Information Value Date Recorded Sex Assigned at Not on file Legal Sex Female 1:58 PM NEWS WIRE PHOTO OPERATOR Gender Identity Not on file Sexual Orientation Not on file documented as of this encounter Last Filed Vital Signs Vital Sign Reading Time Taken Comments Blood Pressure 124/68 10/24/2024 10:31 AM CDT Pulse 68 10/24/2024 10:31 AM CDT Temperature 36.8 C (98.3 F) 10/24/2024 10:31 AM CDT Respiratory Rate 20 10/24/2024 10:31 AM CDT Oxygen Saturation 100% 10/24/2024 10:31 AM CDT Inhaled Oxygen Concentration - - Weight - - Height - - Body Mass Index - - documented in this encounter Plan of Treatment Upcoming Encounters Date Type Department Care Team ( st Contact Info) Description 10/28/2024 1:30 PM CDT [facility] [address] [place] [address] Brooke Burt O[place] 11/01/2024 1:00 AM CD[facility] [address] [place] [address] Mai Bass, [place] 11/01/2024 2:00 PM CDT [facility] [address] [place] [address] Elisa Pollack, [place] 11/02/2024 1:00 AM CDT [facility] [address] [place] [address] Brooke Burt, SHINGLE PACKER [place] 11/03/2024 2:00 PM CDT [facility] [address] [place] [address] Elisa Pollack, [place] 11/04/2024 1:00 AM CDT [facility] [address] [place] [address] Brooke Burt, [place]ING[place]ACK[place] 11/04/2024 2:00 AM CDT [facility] [address] [place] [address] Mai Bass, RN [place] 11/07/2024 1:00 AM CDT Home Care Visit [address] [address] Elisa Pollack, [place] 11/08/2024 1:00 AM CDT [facility] [address] [place] [address] Mai Bass, RN [place] 11/09/2024 1:00 AM CDT [facility] [address] [place] [address] Brooke Burt, [place] 11/10/2024 1:00 AM CDT [facility] [address] [place] [address] Elisa Pollack, [place] 11/11/2024 1:00 AM CDT [facility] [address] [place] [address] Brooke Burt, [place] 11/11/2024 2:00 AM CDT [facility] [address] [place] [address] Mai Bass, RN [place] 11/14/2024 1:00 AM CDT [facility] [address] [place] [address] Maggie Murguia, PT 11/15/2024 1:00 AM CDT [facility] [address] [place] [address] Kathrin Mcmullen OT 11/15/2024 2:00 AM CDT Home Care Visit [facility] [address] Mai Bass, [place] 11/16/2024 1:00 AM CDT Home Care Visit [facility] [address] Elisa Pollack, [place] 11/18/2024 1:00 AM CDT Home Care Visit [facility] [address] Brooke Burt, [place] 11/18/2024 2:00 AM CDT [facility] [address] [place] [address] Mai Bass, [place] 11/21/2024 1:00 AM CDT [facility] [address] [place] [address] Elisa Pollack, [place] 11/22/2024 1:00 AM CDT [facility] [address] [place] [address] Brooke Burt, [place] 11/22/2024 2:00 AM CDT Home Care Visit [facility] [address] Mai Bass, RN [place] 11/23/2024 1:00 AM CDT Home Care Visit [facility] [address] Elisa Pollack, [place] 11/24/2024 1:00 AM CDT Home Care Visit [facility] [address] rBooke Burt [place]ING[place] 11/25/2024 1:00 AM CDT Home Care Visit [facility] [address] Mai Bass, RN [place] 11/28/2024 1:00 AM CDT Home Care Visit [facility] [address] Elisa Pollack, [place] C[place] 11/29/2024 1:00 AM CDT Home Care Visit [facility] [address] Mai Bass, RN [place] 11/30/2024 1:00 AM CDT Appointment [facility] [address] Maggie Murguia, PT 12/02/2024 1:00 AM CDT Appointment [address] [address] Mai Bass, RN [place] documented as of this encounter Visit Diagnoses Not on filedocumented in this encounter Home Health Visit - Care Plan Visit Details Visit Type -SN - OASIS BILLIE Discipline -Intermediate Problems Problem Description Start Date Status Goals Interve ntions UTI PREVENTION Disciplines: Intermediate 10/24/2024 Active 1 goal linked to scheduled/documente d intervention 1 goal intervention scheduled/documente d in this visit Goals Goal Associated Problem Outcome Goal Met? Visit Notes UTI Prevention Description: Patient will verbalize understanding of signs and symptoms to report and methods to prevent urinary tract infection. UTI PREVENTION No Interventions Intervention Associated Problem/Goal Status Variance Visit Notes UTI Symptoms Non-Catheter (O) Description: Evaluate for signs and symptoms of Urinary tract infection. Provide education regarding UTI prevention and signs and symptoms to report. Problem:UTI PREVENTION Goal:UTI Prevention Scheduled documented in this encounter Care Teams Factory Hand Relationship Specialty Start Date End Date Donte Lucas PAC [address] [id number] PCP - General Physician Casing Inspector 10/01/24 documented as of this encounter
--- OUTSIDE RECORDS SUMMARY | 2024-10-28 12:33 | XMS_ITS | Patient Health Record ---
Author Organization [facility] Address [address] [facility] [address] [facility] [address] [place] [address] Care Team Providers Care Defensive Secondary Coach Name Role Phone Gilma Chiu Unavailable [phone] REASON FOR REFERRAL No Information MEDICATIONS Medication SIG (Take, Route, Fr equency, Duration) Notes Start Date End Date Status Bumetanide 1 mg TAKE 2 TABLETS BY MO UTH EVERY MORNING and 1 TABLET BY MOUTH EVERY EVENING for 90 Active SOCIAL HISTORY Sex Assigned At : Social History Observation Description Sex Assigned At Female PROBLEMS Problem Type ICD Code Onset Dates Problem Status W/U Status Risk SNOMED Code Notes Problem Hyperkalemia (E87.5) Active confirmed Hyperkalemia (55266556) Problem Heart failure, unspecified (I50.9) Active confirmed Heart failure (11791216) Problem Hypotension, unspecified (I95.9) Active confirmed Hypotension (45355218) Problem Chronic kidney disease, stage 2 (mild) (N18.2) Active confirmed Chronic kidne y disease stage 2 (380811128) Problem Retention of urine, unspecified (R33.9) Active confirmed Retention of urine (894102558) Problem Type 2 diabetes mellitus without complication, unspecified whether rodent exterminator insulin use (E11.9) Active confirmed Type II diabete s mellitus without complication (169698560) PLAN OF TREATMENT No Information
--- OUTSIDE RECORDS SUMMARY | 2024-10-28 12:33 | XMS_ITS | Encounter Summary ---
Author Organization [facility] Address [address] [place] [address] Phone Care Team Providers Care Sisal Picker Name Role Phone ShadyalbertoDonte PAC Primary Care Provider [phone] Reason for Visit * Auth/Cert (Routine) Specialty Diagnoses / Procedures Referred By Jadyn t Referred To Contact Referral ID Status Reason Start Date Expiration Date Visits Re quested Visits Authorized [id number] [phone] Encounter Details Date Type Department Care Team (Latest Contact Info) Description 10/06/2024 10:00 AM PRINTER'S ASSISTANT [facility] [address] [place] [address] Mai Bass, RN [place] SN - OASIS START OF CARE Social History Tobacco Use Types Packs/Day Years Used Date Smoking Tobacco: Never Assessed Comments Unknown Sex and Gender Information Value Date Recorded Sex Assigned at Not on file Legal Sex Female 1:58 PM PRINTER'S ASSISTANT Gender Identity Not on file Sexual Orientation Not on file documented as of this encounter Last Filed Vital Signs Vital Sign Reading Time Taken Comments Blood Pressure 126/78 10/06/2024 10:43 AM PRINTER'S ASSISTANT Pulse 96 10/06/2024 10:43 AM PRINTER'S ASSISTANT Temperature 36.8 C (98.3 F) 10/06/2024 10:43 AM PRINTER'S ASSISTANT Respiratory Rate 20 10/06/2024 10:43 AM PRINTER'S ASSISTANT Oxygen Saturation 97% 10/06/2024 10:43 AM PRINTER'S ASSISTANT Inhaled Oxygen Concentration - - Weight 90.7 kg (200 lb) 10/06/2024 10:43 AM PRINTER'S ASSISTANT Height 165.1 cm (5' 5 ) 10/06/2024 10:43 AM PRINTER'S ASSISTANT Body Mass Index 33.28 10/06/2024 10:43 AM PRINTER'S ASSISTANT documented in this encounter Plan of Treatment Upcoming Encounters Date Type Department Care Team (Late st Contact Info) Description 10/28/2024 1:30 PM CDT [facility] [address] [place] [address] Brooke Burt [place] 11/01/2024 1:00 AM CDT [facility] [address] [place] [address] Mai Bass, RN [place] 11/01/2024 2:00 PM CDT [facility] [address] [place] [address] Elisa Pollack, MOBILE APPLICATION ENGINEER [place] 11/02/2024 1:00 AM CDT [facility] [address] [place] [address] Brooke Burt [place] 11/03/2024 2:00 PM CDT Home Care Visit [facility] [address] Elisa Pollack, MOBILE APPLICATION ENGINEER [place] 11/04/2024 1:00 AM CDT Home Care Visit [facility] [address] Brooke Burt, [place] 11/04/2024 2:00 AM CDT [facility] [address] [place] [address] Mai Bass, [place] 11/07/2024 1:00 AM CDT [facility] [address] [place] [address] Elisa Pollack, MOBILE APPLICATION ENGINEER [place] 11/08/2024 1:00 AM CDT [facility] [address] [place] [address] Mai Bass, RN [place] 11/09/2024 1:00 AM CDT [facility] [address] [place] [address] Brooke Burt [place] 11/10/2024 1:00 AM CDT [facility] [address] [place] [address] Elisa Pollack, MOBILE APPLICATION ENGINEER [place] 11/11/2024 1:00 AM CDT [facility] [address] [place] [address] Brooke Burt, [place] 11/11/2024 2:00 AM CDT Home Care Visit [facility] [address] Mai Bass, RN [place] 11/14/2024 1:00 AM CDT Home Care Visit [facility] [address] Maggie Murguia, PT 11/15/2024 1:00 AM CDT Home Care Visit [facility] [address] Kathrin Mcmullen OT 11/15/2024 2:00 AM CDT Home Care Visit [facility] [address] Mai Bass, [place] 11/16/2024 1:00 AM CDT Home Care Visit [facility] [address] Elisa Pollack, MOBILE APPLICATION ENGINEER [place] 11/18/2024 1:00 AM CDT Home Care Visit [facility] [address] Brooke Burt, [place] 11/18/2024 2:00 AM CDT [facility] [address] [address] Mai Bass, [place] 11/21/2024 1:00 AM CDT Home Care Visit [facility] [address] Elisa Pollack, MOBILE APPLICATION ENGINE[place] 11/22/2024 1:00 AM CDT [facility] [address] [address] Brooke Burt, GENERAL REPAIR MECHANIC [place] 11/22/2024 2:00 AM CDT Home Care Visit [facility] [address] Mai Bass, [place] 11/23/2024 1:00 AM CDT Home Care Visit [facility] [address] Elisa Pollack, MOBILE APPLICATION ENGINEER [place] 11/24/2024 1:00 AM CDT Home Care Visit [facility] [address] Brooke Burt, GENERAL REPAIR MECHANIC [place] 11/25/2024 1:00 AM CDT Home Care Visit [facility] [address] Mai Bass, RN [place] 11/28/2024 1:00 AM CDT Home Care Visit [facility] [address] Elisa Pollack, MOBILE APPLICATION ENGINEER [place] 11/29/2024 1:00 AM CDT Home Care Visit [facility] [address] Mai Bass, [place] 11/30/2024 1:00 AM CDT Appointment [facility] [address] Maggie Murguia, PT 12/02/2024 1:00 AM CDT Appointment [facility] [address] Mai Bass, RN [place] documented as of this encounter Visit Diagnoses Not on filedocumented in this encounter Care Teams Sisal Picker Relationship Specialty Start Date End Date Donte Lucas PAC [address] [place] [address] PCP - General Physician Design Transferrer 10/01/24 documented as of this encounter
--- OUTSIDE RECORDS SUMMARY | 2024-10-28 12:33 | XMS_ITS | Encounter Summary ---
Author Organization [facility] Address [address] [place] [address] Care Team Providers Care Heart Specialist Name Role Phone Rose Conn MD Unavailable Keith Goodwin MD Unavailable Ace Honeycutt MD Primary Care Provider [phone] Encounter Details Date Type Department Care Team (Late st Contact Info) Description 10/24/2024 Hospital Follow-up Call [facility] [address] [place] [address] Florinda Shanks RN Social History Tobacco Use Types Packs/Day Years Used Date Smoking Tobacco: Every Day Cigarettes Smokeless Tobacco: Never Alcohol Use Standard Drinks/Week Comments Never 0 (1 standard drink = 0.6 oz pur e alcohol) [facility] Utilities Answer Date Recorded In the past 12 months has [facility] [employer], gas, oil, or water [employer] threatened to shut off services in your home? No 10/15/2024 Humiliation, Afraid, Rape, and Kick questionnair e Answer Date Recorded Within the last year, have y ou been afraid of your partner or ex-partner? No 10/15/2024 Within the last year, have y ou been humiliated or emotionally abused in other ways by your partner or ex-partner? No Within the last year, have y ou been kicked, hit, slapped, or otherwise physically hurt by your partner or ex-partner? No 10/15/2024 Within the last year, have y ou been raped or forced to have any kind of sexual activity by your partner or ex-partner? No 10/15/2024 Overall Financial Resource Strain (CARDIA) Answe r Date Recorded How hard is it for you to pa y for the very basics like food, housing, medical care, and heating? Not hard at all 10/15/2024 Hunger Vital Sign Answer Date Recorded Within the past 12 months, y ou worried that your food would run out before you got the money to buy more. Never true 10/16/19 25 Within the past 12 months, t he food you bought just didn't last and you didn't have money to get more. Never true 10/15/2024 PRAPARE - Transportation Answer Date Re corded In the past 12 months, has l ack of transportation kept you from medical appointments or from getting medications? No 03/2025 In the past 12 months, has l ack of transportation kept you from meetings, work, or from getting things needed for daily living? No 10/15/2024 Housing Stability Vital Sign Answer Julito e Recorded In the last 12 months, was t here a time when you were not able to pay the mortgage or rent on time? No 10/15/2024 In the past 12 months, how m any times have you moved where you were living? 0 10/15/2024 At any time in the past 12 m [facility], were you homeless or living in a alf (including now)? No 10/15/2024 Comments No Sex and Gender Information Value Date Recorded Sex Assigned at Female 08/31/2024 8:28 AM FIRE CODE INSPECTOR Legal Sex Female 8:37 PM CDT Gender Identity Not on file Sexual Orientation Not on file documented as of this encounter Functional Status * Are you deaf or do you have serious difficulty hearing Answer Date of Assessment Author Status No 10/15/2024 12:23 PM Jessica Estrella R N Active * Are you blind or do you have serious difficulty seeing, even when wearing glasses? Answer Date of Assessment Author Status No 10/15/2024 12:23 PM Jessica Estrella R N Active * Do you have serious difficulty walking or climbing stairs? Answer Date of Assessment Author Status No 10/15/2024 12:23 PM FIRE CODE INSPECTOR [place], Jessica B, R N Active * Do you have difficulty dressing or bathing? Answer Date of Assessment Author Status Yes 10/15/2024 12:23 PM Jessica Estrella R N Active * Because of a physical, mental, or emotional condition, do you have difficulty doing errands alone such as visiting a doctor's office or shopping? Answer Date of Assessment Author Status Yes 10/15/2024 12:23 PM Jessica Estrella R N Active documented as of this encounter Mental Status * Because of a physical, mental, or emotional condition, do you have serious difficulty concentrating, remembering, or making decisions? Answer Entry Date Author Status No 10/15/2024 12:23 PM Jessica Estrella R N Active documented in this encounter Plan of Treatment Upcoming Encounters Date Type Department Care Team (Late st Contact Info) Description 01/10/2025 12:[address] [facility] [place] [address] Rose Conn MD [address] [place] [address] 01/10/2025 1:[address] [facility] [place] [place] [address] Rose Conn MD [address] [place] [address] 01/20/2025 3:15 PM CDT Office Visit [facility] [address] Rose Conn MD [address] [place] [address] documented as of this encounter Visit Diagnoses Not on filedocumented in this encounter Additional Health Concerns Infection Onset Date Last Indicated Resolved Time MRSA Comment:Added from external infection. Source: [place] [place] [facility]. 12/24/2017 documented as of this encounter Care Teams Heart Specialist Relationship Specialty Start Date End Date Ace Honeycutt MD [address] [place] [address] PCP - General FAMILY PRACTICE 04/29/24 Rose Conn MD [address] [place] [address] Consulting Physician CARDIOVASCULAR DISEASE 09/07/23 Keith Goodwin MD [address] [place] [address] Consulting Physician INTERNAL MEDICINE 09/22/23 documented as of this encounter
--- OUTSIDE RECORDS SUMMARY | 2024-10-28 12:33 | XMS_ITS | Encounter Summary ---
Author Organization [facility] Address [address] [place] [address] Care Team Providers Care Clip And Hanger Attacher Name Role Phone Arnoldo Gary MD Primary Care Provider [phone] Encounter Details Date Type Department Care Team (Late st Contact Info) Description 01/25/2002 Inpatient Historical [facility] INPATIENT IN BED Palak Shah MD [address] [place] [address] [place] [address] Say Patricio MD [address] [facility] [address] [place] [address] POISONING-ANTITUSSI VES (Primary Dx) Social History Tobacco Use Types Packs/Day Years Used Date Smoking Tobacco: Never Assessed Comments Unknown Sex and Gender Information Value Date Recorded Sex Assigned at Not on file Legal Sex Female 3:51 AM DELINQUENT ACCOUNT CLERK Gender Identity Not on file Sexual Orientation [...] documented as of this encounter Care Teams Clip And Hanger Attacher Relationship Specialty Start Date End Date Arnoldo Gary MD [address] [place] [address] PCP - General Internal Medicine 03/27/21 documented as of this encounter
--- OUTSIDE RECORDS SUMMARY | 2024-10-28 12:33 | XMS_ITS | Encounter Summary ---
Author Organization [facility] Address [address] [place] [address] Phone Care Team Providers Care Tank Insulator Rubber Name Role Phone Donte Lucas [facility] Primary Care Provider [phone] Reason for Visit * Auth/Cert (Routine) Specialty Diagnoses / Procedures Referred By Jadyn t Referred To Contact Referral ID Status Reason Start Date Expiration Date Visits Re quested Visits Authorized [id number] [id number] Encounter Details Date Type Department Care Team (Latest Contact Info) Description 10/28/2024 9:30 AM CDT Home Care Visit [address] [address] Mai Bass, RN [place] SN - PRIORITY VISIT Social History Tobacco Use Types Packs/Day Years Used Date Smoking Tobacco: Never Assessed Comments Unknown Sex and Gender Information Value Date Recorded Sex Assigned at Not on file Legal Sex Female 1:58 PM DIRECTOR OF CATH LAB Gender Identity Not on file Sexual Orientation Not on file documented as of this encounter Plan of Treatment Upcoming Encounters Date Type Department Care Team (Late st Contact Info) Description 10/28/2024 1:30 PM CDT Home Care Visit [address] [address] Brooke Burt OTA [place] 11/01/2024 1:00 AM CDT Home Care Visit [address] [address] Mai Bass, RN [place] 11/01/2024 2:00 PM CDT Home Care Visit [address] [address] Elisa Pollack PTA [place] 11/02/2024 1:00 AM CDT [facility] [address] [place] [address] Brooke Burt, POWERHOUSE MECHANIC APPRENTICE [place] 11/03/2024 2:00 PM CDT [facility] [address] [place] [address] Elisa Pollack, TRACK GRINDER OPERATOR [place] 11/04/2024 1:00 AM CDT [facility] [address] [place] [address] Brooke Burt, [place] 11/04/2024 2:00 AM CDT Home Care Visit [address] [address] Mai Bass, RN [place] 11/07/2024 1:00 AM CDT Home Care Visit [address] [address] Elisa Pollack, TRACK GRINDER OPERATOR [place] 11/08/2024 1:00 AM CDT Home Care Visit [address] [address] Mai Bass, RN [place] 11/09/2024 1:00 AM CDT Home Care Visit [address] [address] Brooke Burt, POWERHOUSE MECHANIC APPRENTICE [place] 11/10/2024 1:00 AM CDT Home Care Visit [address] [address] Elisa Pollack, TRACK GRINDER OPERATOR [place] 11/11/2024 1:00 AM CDT Home Care Visit [address] [address] Brooke Burt, [place] 11/11/2024 2:00 AM CDT Home Care Visit [address] [address] Mai Bass, RN [place] 11/14/2024 1:00 AM CDT Home Care Visit [address] [address] Maggie Murguia, PT 11/15/2024 1:00 AM CDT Home Care Visit [address] [address] Kathrin Mcmullen OT 11/15/2024 2:00 AM CDT [facility] [address] [place] [address] Mai Bass, RN [place] 11/16/2024 1:00 AM CDT Home Care Visit [address] [address] Elisa Pollack, TRACK GRINDER OPERATOR [place] 11/18/2024 1:00 AM CDT [facility] [address] [place] [address] Brooke Burt, POWERHOUSE MECHANIC APPRENTICE [place] 11/18/2024 2:00 AM CDT Home Care Visit [address] [address] Mai Bass, RN [place] 11/21/2024 1:00 AM CDT Home Care Visit [address] [address] Elisa Pollack, TRACK GRINDER OPERATOR [place] 11/22/2024 1:00 AM CDT Home Care Visit [address] [address] Brooke Burt, [place] 11/22/2024 2:00 AM CDT [facility] [address] [place] [address] Mai Bass, RN [place] 11/23/2024 1:00 AM CDT [facility] [address] [place] [address] Elisa Pollack, TRACK GRINDER OPERATOR [place] 11/24/2024 1:00 AM CDT [facility] [address] [place] [address] Brooke Burt, [place] 11/25/2024 1:00 AM CDT [facility] [address] [place] [address] Mai Bass, RN [place] 11/28/2024 1:00 AM CDT [facility] [address] [place] [address] Elisa Pollack PTA [place] 11/29/2024 1:00 AM CDT Home Care Visit [address] [address] Mai Bass, RN [place] 11/30/2024 1:00 AM CDT Appointment [address] [address] Maggie Murguia, PT 12/02/2024 1:00 AM CDT Appointment [address] [address] Mai Bass, RN [place] documented as of this encounter Visit Diagnoses Not on filedocumented in this encounter Home Health Visit - Care Plan Visit Details Visit Type -SN - Priority Vi sit Discipline -Long Term Problems Problem Description Start Date Status Goals Interve ntions UTI PREVENTION Disciplines: Long Term 10/24/2024 Active 1 goal linked to scheduled/documente [...] Scheduled documented in this encounter Care Teams Tank Insulator Rubber Relationship Specialty Start Date End Date Donte Lucas PAC [address] [place] [address] PCP - General Physician Office Cleaner 10/01/24 documented as of this encounter
--- OUTSIDE RECORDS SUMMARY | 2024-10-28 12:33 | XMS_ITS | Patient Health Record ---
Author Organization [facility], [place] Address [address] [facility] [address] [place], [place] [address] Care Team Providers Care Doctor Of Naprapathic Medicine Name Role Phone Arnoldo Gary Unavailable Unavailable ALLERGIES Allergen (clinical drug ingredient) Drug/Non Drug Allergy documented on EMR Reaction Allergy Type Onset Date Status Keflex Unknown Drug Allergy Active codeine Codeine Unknown Drug Allergy Active erythromycin Erythromycin Unknown Drug Allergy A ctive REASON FOR REFERRAL No Information MEDICATIONS Medication SIG (Take, Route, Frequency, Duration) Notes Start Date End Date Status Jardiance 10 MG 1 tablet Orally Once a day for 30 day(s) Active Lisinopril 2.5 MG 1 tablet Orally Once a day for 30 day(s) Active Carvedilol 3.125 MG 1 tablet with food Orally Twice a day for 30 day(s) Active Bumex 0.5 MG 1 tablet Orally Once a day for 30 day(s) Active Gabapentin 400 MG DIRECTED Orally 1 capsule in AM, 1 capsule at noon, 2 capsules in the evening for 30 days Active Levemir FlexTouch 100 UNIT/ML 32 UNITS Subcutaneous AT BEDTIME Active Melatonin 10 MG as directed Orally Active HYDROcodone-Acetaminophen 5-325 MG 1 tablet as needed Orally at bedtime Active HumaLOG KwikPen 100 UNIT/ML as directed Subcutaneous SLIDING SCALE Active ZyrTEC Allergy 10 MG 1 tablet Orally Onc e a day for 30 day(s) Active Eliquis 5 MG 1 tablet Orally Twic e a day for 30 day(s) Active Cyclobenzaprine HCl 5 MG 1 tablet at bed time as needed Orally q 8 hours Active Pantoprazole Sodium 20 MG 1 tablet Orall y Once a day for 30 day(s) Active SOCIAL HISTORY Tobacco Use: Social History Observation Description Date Details (start date - stop date) Current Smoker NA - NA Sex Assigned At : Social History Observation Description Sex Assigned At Unknown Tobacco Use/Smoking Question Answer Notes Are you a current smoker How often do you smoke cigarettes? every day How many cigarettes a day do you smoke? 06-29 Alcohol Screen Question Answer Notes Did you have a drink containing alcohol in the p ast year? No Points 0 Interpretation Negative PROBLEMS Problem Type ICD Code Onset Dates Problem Status W/U Status Risk SNOMED Code Notes Problem Type 2 diabetes mellitus without complications (E11.9) Active confirmed Type II diabetes mellitus without complication (059333997) Problem Spondylosis without myelopathy or radiculopathy, lumbar region (M47.816) Active confirmed Lumbosacral spondylosis without myelopathy (80561218) Problem Spondylosis without myelopathy or radiculopathy, lumbosacral region (M47.817) Active confirmed Lumbosacral spondylosis without myelopathy (disorder) (44795845) PLAN OF TREATMENT Pending Test Test Name Order Date CT Scan : Lumbar Spine 06/16/2022 MEDICAL (GENERAL) HISTORY Medical History History ICD Code ASTHMA HYPERLIPIDEMIA TYPE 2 DIABETES ANEMIA HAS A BLEEDING DISORDER GERD RIGHT OVARIAN MASS EPILEPSY DIABETIC GASTROPARESIS LUMBAGO Surgical History Surgery Date(Month/Year) HYSERECTOMY PARTIAL SECONDARY TO INFECTI ON TONSILS EYE SURGERY MULTIPLE LFT GREAT TOE AMPUTATION FEMUR BREAK/REPAIR Hospitalization History Reason Date(Month/Year) SURGERY 2020 SURGERY 2016
--- OUTSIDE RECORDS SUMMARY | 2024-10-28 12:33 | XMS_ITS ---
Author Organization [facility] Address [address] [address] Care Team Providers Care Certified Physician'S Assistant Name Role Phone Clement Ray Primary Care Provider UnavailUgo Lorenzana MD Unavailable Allergies Allergen (clinical drug ingredient) Drug/Non Drug Allergy documented on EMR Reaction Allergy Type Onset Date Status erythromycin Erythromycin Unknown Drug Allergy A ctive codeine Codeine Unknown Drug Allergy Active Keflex Unknown Drug Allergy Active Medications Medication SIG (Take, Route, Frequency, Duration) Notes Start Date End Date Status SM Aspirin Adult Low Strength 81 MG TAKE 1 TABLET BY MOUTH ONCE DAILY Oral for 30 Active Vitamin D (Ergocalciferol) 1.25 MG (35315 UT) Oral for 28 Active Atorvastatin Calcium 80 MG TAKE 1 TABLET BY MOUTH ONCE DAILY AT BEDTIME Oral for 30 Active Pantoprazole Sodium 40 MG 1 tablet Orally Twice a day Active HYDROcodone-Acetaminoph en 5-325 MG TAKE 2 TABLETS BY MOUTH EVERY 4 HOURS NEEDED FOR BREAK THROUGH PAIN Diagnosis Unavailable Oral for 5 Active Ozempic (0.25 or 0.5 MG/DOSE) 2 MG/3ML as directed Subcutaneous Active busPIRone HCl 10 MG 1 tablet Orally Twice a day Active Cyclobenzaprine HCl 5 MG 1 tablet at bedtime as needed Orally Once a day for 30 day(s) Active HumaLOG KwikPen 100 UNIT/ML as directed Subcutaneous Active Lantus SoloStar 100 UNIT/ML as directed Subcutaneous Active Bumetanide 1 MG 1 tablet Orally in the morning and 1 tab in the evening for 30 days this is a dosage increase Active Xarelto 20 mg TAKE 1 TABLET BY MOUTH ONCE DAILY for 30 Active Metoprolol Succinate ER 25 mg TAKE 1/2 (ONE-HALF) TABLET BY MOUTH ONCE DAILY for 30 Active Farxiga 10 mg TAKE 1 Tablet BY MOUTH ONCE DAILY for 30 Active Social History Tobacco Use: Social History Observation Description Date Details (start date - stop date) Current Smoker NA - NA Tobacco Use/Smoking Question Answer Notes Are you a current smoker How often do you smoke cigarettes? every day How many cigarettes a day do you smoke? 06-29 Alcohol Screen (Audit-C) Question Answer Notes Did you have a drink contain ing alcohol in the past year? Yes How often did you have a dri nk containing alcohol in the past year? Monthly or less (1 point) How many drinks did you have on a typical day when you were drinking in the past year? 1 or 2 drinks (0 point) How often did you have 6 or more drinks on one occasion in the past year? Never (0 point) Points 1 Interpretation Negative Encounters Encounter Location Date Provider Diagnosis [address] [address] 06/25/2023 Ugo Benitez Plan Of Treatment No Information Progress Notes * Karyn MARSHALLOB:1975 ( 48 yo F)Acc No.[id number]:06/25/2023 Progress note Patient: Brooke FLOR Provider: Hazel Benitez MD :1975 A ge:47 Y S ex:Female Date:06/25/2023 Address:[address] [place], [place] [id number] Pcp:YING Rosa Subjective: * Chief Complaints: * * Medical History: H eart Cath, Blood Clots, Insomnia, Anxiety, High Cholesterol, Diabetes 2. * Surgical History: b roken femur 03/27/2021, uterous removal 1999, unsuccessful tuball , tonsils 1979, left big toe amputation 2019, eye surgeries . * Hospitalization/Major Diagno stic [facility]2021, [place] , [place] [facility], [facility] 2019. * Family History: M other: , diagnosed with Diabetes, Stroke, Hypertension. P aternal Grand Mother: , diagnosed with Diabetes, Heart Attack. M aternal Grand Mother: , diagnosed with Diabetes, Stroke, Hypertension. M aternal uncle: , diagnosed with Cancer. Donna smith Grand Father: diagnosed with Diabetes, Stroke, Hypertension. Both parents had thiriod issues. * Social History: T obacco Use: T obacco Use/Smoking A re you a c urrent smoker H ow often do you smoke cigarettes? e very day H ow many cigarettes a day do you smoke? 1 1-20 Tobacco use other than smoking: none. Pack Year History: 1 pack a day. D rugs/Alcohol: A lcohol Screen (Audit-C) D id you have a drink containing alcohol in the past year? Y es H ow often did you have a drink containing alcohol in the past year? M onthly or less (1 point) H ow many drinks did you have on a typical day when you were drinking in the past year? 1 or 2 drinks (0 point) H ow often did you have 6 or more drinks on one occasion in the past year? N ever (0 point) P oints 1 I nterpretation N egative Caffeine: tea, soda, chocolate. Do you smoke marijuana?: Denies. Do you drink alcohol?: Socially. * Medications: T aking Ozempic (0.25 or 0.5 MG/DOSE) 2 MG/3ML Solution Pen-injector as directed Subcutaneous , Taking busPIRone HCl 10 MG Tablet 1 tablet Orally Twice a day , Taking Cyclobenzaprine HCl 5 MG Tablet 1 tablet at bedtime as needed Orally Once a day , Taking HumaLOG KwikPen 100 UNIT/ML Solution as directed Subcutaneous , Taking Lantus SoloStar 100 UNIT/ML Solution as directed Subcutaneous , Taking HYDROcodone-Acetaminophen 5-325 MG Tablet TAKE 2 TABLETS BY MOUTH EVERY 4 HOURS NEEDED FOR BREAK THROUGH PAIN Diagnosis Unavailable Oral , Taking SM Aspirin Adult Low Strength 81 MG Tablet Delayed Release TAKE 1 TABLET BY MOUTH ONCE DAILY Oral , Taking Vitamin D (Ergocalciferol) 1.25 MG (20888 UT) Capsule Oral , Taking Atorvastatin Calcium 80 MG Tablet TAKE 1 TABLET BY MOUTH ONCE DAILY AT BEDTIME Oral , Taking Pantoprazole Sodium 40 MG Tablet Delayed Release 1 tablet Orally Twice a day , Taking Bumetanide 1 MG Tablet 1 tablet Orally in the morning and 1 tab in the evening , Notes to Pharmacist: this is a dosage increase, Taking Xarelto 20 mg Tablet TAKE 1 TABLET BY MOUTH ONCE DAILY , Taking Metoprolol Succinate ER 25 mg Tablet Extended Release 24 Hour TAKE 1/2 (ONE-HALF) TABLET BY MOUTH ONCE DAILY , Taking Farxiga 10 mg Tablet TAKE 1 Tablet BY MOUTH ONCE DAILY * Allergies: C odeine, Keflex, Erythromycin. Objective: * Vitals: Assessment: Plan: * Treatment: * Images: * Electronic signature of Gary Benitez MD, MD on 10/28/2024 at 12:32 PM CDT Sign off status: Pending * Provider: Hazel Benitez MD Date: 08/25/2022 Generated for Bret garza/Irineo/J Carlos on: 0 10/28/2024 12:32 PM CDT
--- OUTSIDE RECORDS SUMMARY | 2024-10-28 12:33 | XMS_ITS | Referral Summary ---
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 goal [...] home health skilled care 08/26/2024 9:30 AM NUCLEAR POWERPLANT MECHANIC Office Visit [facility] [address] [place] [phone] Kaleb Davenport Si, MD Cerebrovascular accident (CVA) [...] 3 Sensor) device Every 14 days 06/09/20 23 Active gabapentin (NEURONTIN) 300 mg capsule Take [...] hematuria 09/22/2021 Coronary artery disease invo lving telida coronary artery of telida heart without angina pectoris 09/22/2021 Chronic pain [...] drink = 0.6 oz pur e alcohol) [facility] Utilities Answer Date Recorded In the past 12 months has th e electric, gas, oil, or water [employer] threatened to shut off services in your [...] week 09/13/2024 How often do you attend chur ch or anglican services? Never 09/13/2024 Do you belong to any clubs o r organizations such as roman catholic groups, unions, fraternal or athletic groups, [...] any time in the past 12 m [facility], were you homeless or living in a group home (including now)? No 09/13/2024 Personal Safety Answer Date Recorded Have you ever been in or are you currently in a harmful physical or emotional relationship or is someone making you feel afraid or unsafe? Patient unable to answer 09/13/2024 Comments No Sex and Gender Information Value Date Recorded Sex Assigned at Not on file Legal Sex Female 11:01 PM NUCLEAR POWERPLANT MECHANIC Gender Identity Not on file Sexual Orientation Not on file Last Filed Vital Signs Vital Sign Reading Time Taken Comments Blood Pressure 148/70 10/01/2024 6:07 AM NUCLEAR POWERPLANT MECHANIC Pulse 74 10/01/2024 3:00 PM NUCLEAR POWERPLANT MECHANIC Temperature 36.4 C (97.6 F) 10/01/2024 3:07 AM NUCLEAR POWERPLANT MECHANIC Respiratory Rate 18 10/01/2024 3:07 AM NUCLEAR POWERPLANT MECHANIC Oxygen Saturation 93% 10/01/2024 2:52 PM NUCLEAR POWERPLANT MECHANIC Inhaled Oxygen Concentration - - Weight 110.3 kg (243 lb 2.7 oz) 09/23/2024 8:41 PM NUCLEAR POWERPLANT MECHANIC Height 165.1 cm (5' 5 ) 09/23/2024 8:41 PM NUCLEAR POWERPLANT MECHANIC Body Mass Index 40.47 09/23/2024 8:41 PM NUCLEAR POWERPLANT MECHANIC Plan of Treatment Not on file Procedures Procedure Name Priority Date/Time Associated Diagnosis Comments POCT GLUCOSE DEVICE Routine 10/01/2024 4 :34 PM NUCLEAR POWERPLANT MECHANIC POCT GLUCOSE DEVICE Routine 10/01/2024 11:48 AM NUCLEAR POWERPLANT MECHANIC XR CHEST 1 VIEW IP Routine 10/01/2024 9:10 AM NUCLEAR POWERPLANT MECHANIC EGFR Routine 10/01/2024 6:57 AM NUCLEAR POWERPLANT MECHANIC BASIC METABOLIC PANEL Routine 10/01/2024 6:57 AM NUCLEAR POWERPLANT MECHANIC MAGNESIUM Routine 10/01/2024 6:57 AM NUCLEAR POWERPLANT MECHANIC POCT GLUCOSE DEVICE Routine 10/01/2024 6 :04 AM NUCLEAR POWERPLANT MECHANIC POCT GLUCOSE DEVICE Routine 10/01/2024 2 :00 AM NUCLEAR POWERPLANT MECHANIC POCT GLUCOSE DEVICE Routine 09/30/2024 9 :45 PM NUCLEAR POWERPLANT MECHANIC POCT GLUCOSE DEVICE Routine 09/30/2024 4 :52 PM NUCLEAR POWERPLANT MECHANIC POCT GLUCOSE DEVICE Routine 09/30/2024 11:39 AM NUCLEAR POWERPLANT MECHANIC POCT GLUCOSE DEVICE Routine 09/30/2024 8 :36 AM NUCLEAR POWERPLANT MECHANIC POCT GLUCOSE DEVICE Routine 09/30/2024 5 :29 AM NUCLEAR POWERPLANT MECHANIC POCT GLUCOSE DEVICE Routine 09/30/2024 2 :22 AM NUCLEAR POWERPLANT MECHANIC POCT GLUCOSE DEVICE Routine 09/29/2024 8 :35 PM NUCLEAR POWERPLANT MECHANIC POCT GLUCOSE DEVICE Routine 09/29/2024 5 :35 PM NUCLEAR POWERPLANT MECHANIC EGFR Routine 09/29/2024 3:33 PM NUCLEAR POWERPLANT MECHANIC DIFFERENTIAL AUTO Routine 09/29/2024 3:3 3 PM NUCLEAR POWERPLANT MECHANIC COMPREHENSIVE METABOLIC PANEL Routine 09/29/2024 3:33 PM NUCLEAR POWERPLANT MECHANIC CBC WITH AUTO DIFFERENTIAL Routine 09/29/2024 3:33 PM NUCLEAR POWERPLANT MECHANIC POCT GLUCOSE DEVICE Routine 09/29/2024 1 :43 PM NUCLEAR POWERPLANT MECHANIC POCT GLUCOSE DEVICE Routine 09/29/2024 9 :49 AM NUCLEAR POWERPLANT MECHANIC POCT GLUCOSE DEVICE Routine 09/29/2024 7 :27 AM NUCLEAR POWERPLANT MECHANIC POCT GLUCOSE DEVICE Routine 09/29/2024 5 :31 AM NUCLEAR POWERPLANT MECHANIC POCT GLUCOSE DEVICE Routine 09/29/2024 1 :25 AM NUCLEAR POWERPLANT MECHANIC POCT GLUCOSE DEVICE Routine 09/28/2024 9 :14 PM NUCLEAR POWERPLANT MECHANIC POCT GLUCOSE DEVICE Routine 09/28/2024 5 :12 PM NUCLEAR POWERPLANT MECHANIC POCT GLUCOSE DEVICE Routine 09/28/2024 1 :43 PM NUCLEAR POWERPLANT MECHANIC POCT GLUCOSE DEVICE Routine 09/28/2024 9 :16 AM NUCLEAR POWERPLANT MECHANIC EGFR Routine 09/28/2024 7:09 AM NUCLEAR POWERPLANT MECHANIC DIFFERENTIAL AUTO Routine 09/28/2024 7:0 9 AM NUCLEAR POWERPLANT MECHANIC COMPREHENSIVE METABOLIC PANEL Routine 09/28/2024 7:09 AM NUCLEAR POWERPLANT MECHANIC CBC WITH AUTO DIFFERENTIAL Routine 09/28/2024 7:09 AM NUCLEAR POWERPLANT MECHANIC POCT GLUCOSE DEVICE Routine 09/28/2024 5 :42 AM NUCLEAR POWERPLANT MECHANIC POCT GLUCOSE DEVICE Routine 09/28/2024 1 :31 AM NUCLEAR POWERPLANT MECHANIC POCT GLUCOSE DEVICE Routine 09/27/2024 9 :14 PM NUCLEAR POWERPLANT MECHANIC POCT GLUCOSE DEVICE Routine 09/27/2024 5 :25 PM NUCLEAR POWERPLANT MECHANIC POCT GLUCOSE DEVICE Routine 09/27/2024 3 :13 PM NUCLEAR POWERPLANT MECHANIC FL MODIFIED BARIUM SWALLOW W VIDEO IP Routine 09/27/2024 2:20 PM NUCLEAR POWERPLANT MECHANIC POCT GLUCOSE DEVICE Routine 09/27/2024 10:05 AM NUCLEAR POWERPLANT MECHANIC ADD ON LAB TEST Add-On 09/27/2024 8:43 AM NUCLEAR POWERPLANT MECHANIC POCT GLUCOSE DEVICE Routine 09/27/2024 5 :57 AM NUCLEAR POWERPLANT MECHANIC IRON PROFILE W/ IBC Routine 09/27/2024 5 :42 AM NUCLEAR POWERPLANT MECHANIC EGFR Routine 09/27/2024 5:42 AM NUCLEAR POWERPLANT MECHANIC DIFFERENTIAL AUTO Routine 09/27/2024 5:4 2 AM NUCLEAR POWERPLANT MECHANIC COMPREHENSIVE METABOLIC PANEL Routine 09/27/2024 5:42 AM NUCLEAR POWERPLANT MECHANIC CBC WITH AUTO DIFFERENTIAL Routine 09/27/2024 5:42 AM NUCLEAR POWERPLANT MECHANIC POCT GLUCOSE DEVICE Routine 09/27/2024 2 :14 AM NUCLEAR POWERPLANT MECHANIC POCT GLUCOSE DEVICE Routine 09/26/2024 9 :41 PM NUCLEAR POWERPLANT MECHANIC POCT GLUCOSE DEVICE Routine 09/26/2024 6 :18 PM NUCLEAR POWERPLANT MECHANIC POCT GLUCOSE DEVICE Routine 09/26/2024 2 :51 PM NUCLEAR POWERPLANT MECHANIC CBC WITH AUTO DIFFERENTIAL STAT 09/26/2024 2:03 PM NUCLEAR POWERPLANT MECHANIC EGFR Routine 09/26/2024 1:25 PM NUCLEAR POWERPLANT MECHANIC DIFFERENTIAL AUTO Routine 09/26/2024 1:2 5 PM NUCLEAR POWERPLANT MECHANIC COMPREHENSIVE METABOLIC PANEL Routine 09/26/2024 1:25 PM NUCLEAR POWERPLANT MECHANIC CBC WITH AUTO DIFFERENTIAL Routine 09/26/2024 1:25 PM NUCLEAR POWERPLANT MECHANIC POCT GLUCOSE DEVICE Routine 09/26/2024 10:10 AM NUCLEAR POWERPLANT MECHANIC POCT GLUCOSE DEVICE Routine 09/26/2024 5 :04 AM NUCLEAR POWERPLANT MECHANIC C. DIFFICILE TESTING Routine 09/26/2024 2:18 AM NUCLEAR POWERPLANT MECHANIC POCT GLUCOSE DEVICE Routine 09/26/2024 12:01 AM NUCLEAR POWERPLANT MECHANIC POCT GLUCOSE DEVICE Routine 09/25/2024 8 :35 PM NUCLEAR POWERPLANT MECHANIC POCT GLUCOSE DEVICE Routine 09/25/2024 4 :36 PM NUCLEAR POWERPLANT MECHANIC POCT GLUCOSE DEVICE Routine 09/25/2024 11:55 AM NUCLEAR POWERPLANT MECHANIC POCT GLUCOSE DEVICE Routine 09/25/2024 8 :32 AM NUCLEAR POWERPLANT MECHANIC EGFR Routine 09/25/2024 8:32 AM NUCLEAR POWERPLANT MECHANIC DIFFERENTIAL AUTO Routine 09/25/2024 8:3 2 AM NUCLEAR POWERPLANT MECHANIC COMPREHENSIVE METABOLIC PANEL Routine 09/25/2024 8:32 AM NUCLEAR POWERPLANT MECHANIC CBC WITH AUTO DIFFERENTIAL Routine 09/25/2024 8:32 AM NUCLEAR POWERPLANT MECHANIC POCT GLUCOSE DEVICE Routine 09/25/2024 4 :49 AM NUCLEAR POWERPLANT MECHANIC POCT GLUCOSE DEVICE Routine 09/25/2024 12:48 AM NUCLEAR POWERPLANT MECHANIC POCT GLUCOSE DEVICE Routine 09/24/2024 8 :56 PM NUCLEAR POWERPLANT MECHANIC POCT GLUCOSE DEVICE Routine 09/24/2024 4 :20 PM NUCLEAR POWERPLANT MECHANIC POCT GLUCOSE DEVICE Routine 09/24/2024 12:13 PM NUCLEAR POWERPLANT MECHANIC XR CHEST 1 VIEW IP Routine 09/24/2024 8:18 AM NUCLEAR POWERPLANT MECHANIC POCT GLUCOSE DEVICE Routine 09/24/2024 4 :12 AM NUCLEAR POWERPLANT MECHANIC POCT GLUCOSE DEVICE Routine 09/24/2024 2 :44 AM NUCLEAR POWERPLANT MECHANIC POCT GLUCOSE DEVICE Routine 09/24/2024 1 :06 AM NUCLEAR POWERPLANT MECHANIC POCT GLUCOSE DEVICE Routine 09/24/2024 12:44 AM NUCLEAR POWERPLANT MECHANIC POCT GLUCOSE DEVICE Routine 09/24/2024 12:22 AM NUCLEAR POWERPLANT MECHANIC POCT GLUCOSE DEVICE Routine 09/23/2024 9 :34 PM NUCLEAR POWERPLANT MECHANIC POCT GLUCOSE DEVICE Routine 09/23/2024 4 :10 PM NUCLEAR POWERPLANT MECHANIC POCT GLUCOSE DEVICE Routine 09/23/2024 1 :10 PM NUCLEAR POWERPLANT MECHANIC POCT GLUCOSE DEVICE Routine 09/23/2024 12:18 PM NUCLEAR POWERPLANT MECHANIC POCT GLUCOSE DEVICE Routine 09/23/2024 11:55 AM NUCLEAR POWERPLANT MECHANIC POCT GLUCOSE DEVICE Routine 09/23/2024 11:54 AM NUCLEAR POWERPLANT MECHANIC POCT GLUCOSE DEVICE Routine 09/23/2024 7 :47 AM NUCLEAR POWERPLANT MECHANIC POCT GLUCOSE DEVICE Routine 09/23/2024 3 :27 AM NUCLEAR POWERPLANT MECHANIC POCT GLUCOSE DEVICE Routine 09/23/2024 1 :13 AM NUCLEAR POWERPLANT MECHANIC POCT GLUCOSE DEVICE Routine 09/23/2024 12:17 AM NUCLEAR POWERPLANT MECHANIC POCT GLUCOSE DEVICE Routine 09/22/2024 11:54 PM NUCLEAR POWERPLANT MECHANIC BLOOD GAS, ARTERIAL STAT 09/22/2024 8 :33 PM NUCLEAR POWERPLANT MECHANIC POCT GLUCOSE DEVICE Routine 09/22/2024 7 :46 PM NUCLEAR POWERPLANT MECHANIC POCT GLUCOSE DEVICE Routine 09/22/2024 4 :04 PM NUCLEAR POWERPLANT MECHANIC EXTUBATION Routine 09/22/2024 3:48 PM NUCLEAR POWERPLANT MECHANIC POCT GLUCOSE DEVICE Routine 09/22/2024 11:51 AM NUCLEAR POWERPLANT MECHANIC POCT GLUCOSE DEVICE Routine 09/22/2024 8 :42 AM NUCLEAR POWERPLANT MECHANIC POCT GLUCOSE DEVICE Routine 09/22/2024 4 :05 AM NUCLEAR POWERPLANT MECHANIC XR CHEST 1 VIEW IP Routine 09/22/2024 3:59 AM NUCLEAR POWERPLANT MECHANIC EGFR Routine 09/22/2024 2:24 AM NUCLEAR POWERPLANT MECHANIC CBC WITHOUT DIFFERENTIAL Routine 09/22/2024 2:24 AM NUCLEAR POWERPLANT MECHANIC MAGNESIUM Routine 09/22/2024 2:24 AM NUCLEAR POWERPLANT MECHANIC RENAL FUNCTION PANEL Routine 09/22/2024 2:24 AM NUCLEAR POWERPLANT MECHANIC POCT GLUCOSE DEVICE Routine 09/21/2024 11:58 PM NUCLEAR POWERPLANT MECHANIC POCT GLUCOSE DEVICE Routine 09/21/2024 7 :01 PM NUCLEAR POWERPLANT MECHANIC POCT GLUCOSE DEVICE Routine 09/21/2024 3 :10 PM NUCLEAR POWERPLANT MECHANIC POTASSIUM LEVEL STAT 09/21/2024 2:07 PM NUCLEAR POWERPLANT MECHANIC POCT GLUCOSE DEVICE Routine 09/21/2024 11:30 AM NUCLEAR POWERPLANT MECHANIC POCT GLUCOSE DEVICE Routine 09/21/2024 7 :19 AM NUCLEAR POWERPLANT MECHANIC XR CHEST 1 VIEW IP Routine 09/21/2024 4:44 AM NUCLEAR POWERPLANT MECHANIC POCT GLUCOSE DEVICE Routine 09/21/2024 3 :47 AM NUCLEAR POWERPLANT MECHANIC EGFR Routine 09/21/2024 1:48 AM NUCLEAR POWERPLANT MECHANIC PHOSPHORUS Routine 09/21/2024 1:48 AM NUCLEAR POWERPLANT MECHANIC BILIRUBIN, DIRECT Routine 09/21/2024 1:4 8 AM NUCLEAR POWERPLANT MECHANIC COMPREHENSIVE METABOLIC PANEL Routine 09/21/2024 1:48 AM NUCLEAR POWERPLANT MECHANIC CBC WITHOUT DIFFERENTIAL Routine 09/21/2024 1:48 AM NUCLEAR POWERPLANT MECHANIC MAGNESIUM Routine 09/21/2024 1:48 AM NUCLEAR POWERPLANT MECHANIC POCT GLUCOSE DEVICE Routine 09/20/2024 11:54 PM NUCLEAR POWERPLANT MECHANIC POCT GLUCOSE DEVICE Routine 09/20/2024 7 :03 PM NUCLEAR POWERPLANT MECHANIC POCT GLUCOSE DEVICE Routine 09/20/2024 3 :28 PM NUCLEAR POWERPLANT MECHANIC POCT GLUCOSE DEVICE Routine 09/20/2024 11:48 AM NUCLEAR POWERPLANT MECHANIC BLOOD GAS, ARTERIAL STAT 09/20/2024 10:54 AM NUCLEAR POWERPLANT MECHANIC XR CHEST 1 VIEW ED Urgent/IP Urgent 09/20/2024 9:17 AM NUCLEAR POWERPLANT MECHANIC POCT GLUCOSE DEVICE Routine 09/20/2024 7 :20 AM NUCLEAR POWERPLANT MECHANIC POCT GLUCOSE DEVICE Routine 09/20/2024 3 :37 AM NUCLEAR POWERPLANT MECHANIC EGFR Routine 09/20/2024 12:27 AM NUCLEAR POWERPLANT MECHANIC DIFFERENTIAL AUTO Routine 09/20/2024 12:27 AM NUCLEAR POWERPLANT MECHANIC COMPREHENSIVE METABOLIC PANEL Routine 09/20/2024 12:27 AM NUCLEAR POWERPLANT MECHANIC CBC WITH AUTO DIFFERENTIAL Routine 09/20/2024 12:27 AM NUCLEAR POWERPLANT MECHANIC POCT GLUCOSE DEVICE Routine 09/19/2024 11:00 PM NUCLEAR POWERPLANT MECHANIC POCT GLUCOSE DEVICE Routine 09/19/2024 7 :52 PM NUCLEAR POWERPLANT MECHANIC POCT GLUCOSE DEVICE Routine 09/19/2024 4 :55 PM NUCLEAR POWERPLANT MECHANIC POCT GLUCOSE DEVICE Routine 09/19/2024 12:31 PM NUCLEAR POWERPLANT MECHANIC POTASSIUM LEVEL Timed 09/19/2024 10:04 AM NUCLEAR POWERPLANT MECHANIC EEG Routine 09/19/2024 8:50 AM NUCLEAR POWERPLANT MECHANIC POCT GLUCOSE DEVICE Routine 09/19/2024 7 :53 AM NUCLEAR POWERPLANT MECHANIC POCT GLUCOSE DEVICE Routine 09/19/2024 3 :58 AM NUCLEAR POWERPLANT MECHANIC MANUAL DIFFERENTIAL Routine 09/19/2024 1 :46 AM NUCLEAR POWERPLANT MECHANIC EGFR Routine 09/19/2024 1:46 AM NUCLEAR POWERPLANT MECHANIC DIFFERENTIAL AUTO Routine 09/19/2024 1:4 6 AM NUCLEAR POWERPLANT MECHANIC CBC WITH AUTO DIFFERENTIAL Routine 09/19/2024 1:46 AM NUCLEAR POWERPLANT MECHANIC MAGNESIUM Routine 09/19/2024 1:46 AM NUCLEAR POWERPLANT MECHANIC PHOSPHORUS Routine 09/19/2024 1:46 AM NUCLEAR POWERPLANT MECHANIC COMPREHENSIVE METABOLIC PANEL Routine 09/19/2024 1:46 AM NUCLEAR POWERPLANT MECHANIC AMMONIA STAT 09/19/2024 1:07 AM NUCLEAR POWERPLANT MECHANIC POCT GLUCOSE DEVICE Routine 09/18/2024 11:58 PM NUCLEAR POWERPLANT MECHANIC POCT GLUCOSE DEVICE Routine 09/18/2024 9 :10 PM NUCLEAR POWERPLANT MECHANIC POCT GLUCOSE DEVICE Routine 09/18/2024 4 :18 PM NUCLEAR POWERPLANT MECHANIC POCT GLUCOSE DEVICE Routine 09/18/2024 12:07 PM NUCLEAR POWERPLANT MECHANIC DIC SCHISTOCYTES STAT 09/18/2024 8:13 AM NUCLEAR POWERPLANT MECHANIC DIC PLATELET STAT 09/18/2024 8:13 AM NUCLEAR POWERPLANT MECHANIC DIFFERENTIAL AUTO STAT 09/18/2024 8:1 3 AM NUCLEAR POWERPLANT MECHANIC CBC WITH AUTO DIFFERENTIAL STAT 09/18/2024 8:13 AM NUCLEAR POWERPLANT MECHANIC DIC PROFILE Routine 09/18/2024 8:13 AM NUCLEAR POWERPLANT MECHANIC POCT GLUCOSE DEVICE Routine 09/18/2024 7 :57 AM NUCLEAR POWERPLANT MECHANIC POCT GLUCOSE DEVICE Routine 09/18/2024 7 :56 AM NUCLEAR POWERPLANT MECHANIC EGFR Routine 09/18/2024 7:26 AM NUCLEAR POWERPLANT MECHANIC VITAMIN B12 Routine 09/18/2024 7:26 AM NUCLEAR POWERPLANT MECHANIC PHOSPHORUS Routine 09/18/2024 7:26 AM NUCLEAR POWERPLANT MECHANIC MAGNESIUM Routine 09/18/2024 7:26 AM NUCLEAR POWERPLANT MECHANIC COMPREHENSIVE METABOLIC PANEL Routine 09/18/2024 7:26 AM NUCLEAR POWERPLANT MECHANIC POCT GLUCOSE DEVICE Routine 09/18/2024 4 :28 AM NUCLEAR POWERPLANT MECHANIC DIC COAGULATION Routine 09/18/2024 4:20 AM NUCLEAR POWERPLANT MECHANIC POCT GLUCOSE DEVICE Routine 09/17/2024 11:57 PM NUCLEAR POWERPLANT MECHANIC POCT GLUCOSE DEVICE Routine 09/17/2024 8 :02 PM NUCLEAR POWERPLANT MECHANIC POCT GLUCOSE DEVICE Routine 09/17/2024 4 :21 PM NUCLEAR POWERPLANT MECHANIC EGFR Timed 09/17/2024 2:52 PM NUCLEAR POWERPLANT MECHANIC RENAL FUNCTION PANEL Timed 09/17/2024 2:52 PM NUCLEAR POWERPLANT MECHANIC POCT GLUCOSE DEVICE Routine 09/17/2024 12:23 PM NUCLEAR POWERPLANT MECHANIC POCT GLUCOSE DEVICE Routine 09/17/2024 7 :09 AM NUCLEAR POWERPLANT MECHANIC POCT GLUCOSE DEVICE Routine 09/17/2024 4 :42 AM NUCLEAR POWERPLANT MECHANIC MANUAL DIFFERENTIAL Routine 09/17/2024 4 :10 AM NUCLEAR POWERPLANT MECHANIC EGFR Routine 09/17/2024 4:10 AM NUCLEAR POWERPLANT MECHANIC HAPTOGLOBIN Routine 09/17/2024 4:10 AM NUCLEAR POWERPLANT MECHANIC THYROID FUNCTION CASCADE Routine 09/17/2024 4:10 AM NUCLEAR POWERPLANT MECHANIC MAGNESIUM Routine 09/17/2024 4:10 AM NUCLEAR POWERPLANT MECHANIC PHOSPHORUS Routine 09/17/2024 4:10 AM NUCLEAR POWERPLANT MECHANIC CBC WITH AUTO DIFFERENTIAL Routine 09/17/2024 4:10 AM NUCLEAR POWERPLANT MECHANIC COMPREHENSIVE METABOLIC PANEL Routine 09/17/2024 4:10 AM NUCLEAR POWERPLANT MECHANIC XR CHEST 1 VIEW IP Routine 09/17/2024 2:59 AM NUCLEAR POWERPLANT MECHANIC POCT GLUCOSE DEVICE Routine 09/16/2024 11:48 PM NUCLEAR POWERPLANT MECHANIC POCT GLUCOSE DEVICE Routine 09/16/2024 8 :12 PM NUCLEAR POWERPLANT MECHANIC POCT GLUCOSE DEVICE Routine 09/16/2024 4 :04 PM NUCLEAR POWERPLANT MECHANIC POCT GLUCOSE DEVICE Routine 09/16/2024 12:27 PM NUCLEAR POWERPLANT MECHANIC US VEIN DUPLEX LOWER EXTREMITY BILATERAL COMPLETE IP Routine 09/16/2024 11:24 AM NUCLEAR POWERPLANT MECHANIC AR INSJ NON-TUNNELED CENTRAL VENOUS CATH AGE 5 YR/> Routine 09/16/2024 8:53 AM NUCLEAR POWERPLANT MECHANIC MSSA bacteremia BLOOD CULTURE STAT 09/16/2024 8:53 AM NUCLEAR POWERPLANT MECHANIC BLOOD CULTURE STAT 09/16/2024 8:45 AM NUCLEAR POWERPLANT MECHANIC POCT GLUCOSE DEVICE Routine 09/16/2024 7 :33 AM NUCLEAR POWERPLANT MECHANIC MANUAL DIFFERENTIAL STAT 09/16/2024 5 :30 AM NUCLEAR POWERPLANT MECHANIC CBC WITH AUTO DIFFERENTIAL STAT 09/16/2024 5:30 AM NUCLEAR POWERPLANT MECHANIC POCT GLUCOSE DEVICE Routine 09/16/2024 5 :23 AM NUCLEAR POWERPLANT MECHANIC XR CHEST 1 VIEW Routine 09/16/2024 4:37 AM NUCLEAR POWERPLANT MECHANIC TRIGLYCERIDES Routine 09/16/2024 4:05 AM NUCLEAR POWERPLANT MECHANIC EGFR Routine 09/16/2024 4:05 AM NUCLEAR POWERPLANT MECHANIC MAGNESIUM Routine 09/16/2024 4:05 AM NUCLEAR POWERPLANT MECHANIC RENAL FUNCTION PANEL Routine 09/16/2024 4:05 AM NUCLEAR POWERPLANT MECHANIC BLOOD CULTURE STAT 09/16/2024 4:05 AM NUCLEAR POWERPLANT MECHANIC POCT GLUCOSE DEVICE Routine 09/16/2024 3 :45 AM NUCLEAR POWERPLANT MECHANIC MRI BRAIN WO CONTRAST IP Routine 09/16/2024 1:48 AM NUCLEAR POWERPLANT MECHANIC POCT GLUCOSE DEVICE Routine 09/16/2024 1 :06 AM NUCLEAR POWERPLANT MECHANIC POCT GLUCOSE DEVICE Routine 09/16/2024 12:01 AM NUCLEAR POWERPLANT MECHANIC POCT GLUCOSE DEVICE Routine 09/15/2024 9 :09 PM NUCLEAR POWERPLANT MECHANIC POCT GLUCOSE DEVICE Routine 09/15/2024 7 :41 PM NUCLEAR POWERPLANT MECHANIC POCT GLUCOSE DEVICE Routine 09/15/2024 5 :12 PM NUCLEAR POWERPLANT MECHANIC POCT GLUCOSE DEVICE Routine 09/15/2024 3 :05 PM NUCLEAR POWERPLANT MECHANIC AEROBIC CULTURE AND GRAM STAIN Routine 09/15/2024 1:57 PM NUCLEAR POWERPLANT MECHANIC TRANSESOPHAGEAL ECHO (DEMI) W DOPPLER/CF WO CONTRAST Routine 09/15/2024 1:43 PM NUCLEAR POWERPLANT MECHANIC POCT GLUCOSE DEVICE Routine 09/15/2024 1 :05 PM NUCLEAR POWERPLANT MECHANIC XR CHEST 1 VIEW Critical/Life- Threatening 09/15/2024 11:41 AM NUCLEAR POWERPLANT MECHANIC BLOOD GAS, ARTERIAL STAT 09/15/2024 11:34 AM NUCLEAR POWERPLANT MECHANIC POCT GLUCOSE DEVICE Routine 09/15/2024 11:07 AM NUCLEAR POWERPLANT MECHANIC INTUBATION Routine 09/15/2024 10:31 AM NUCLEAR POWERPLANT MECHANIC Toxic metabolic encephalopathy MONITOR EXHALED CO2 Routine 09/15/2024 10:30 AM NUCLEAR POWERPLANT MECHANIC POCT GLUCOSE DEVICE Routine 09/15/2024 9 :16 AM NUCLEAR POWERPLANT MECHANIC POCT GLUCOSE DEVICE Routine 09/15/2024 7 :06 AM NUCLEAR POWERPLANT MECHANIC POCT GLUCOSE DEVICE Routine 09/15/2024 5 :27 AM NUCLEAR POWERPLANT MECHANIC POCT GLUCOSE DEVICE Routine 09/15/2024 3 :51 AM NUCLEAR POWERPLANT MECHANIC APTT Timed 09/15/2024 3:48 AM NUCLEAR POWERPLANT MECHANIC XR CHEST 1 VIEW IP Routine 09/15/2024 3:41 AM NUCLEAR POWERPLANT MECHANIC EGFR Routine 09/15/2024 1:50 AM NUCLEAR POWERPLANT MECHANIC PHOSPHORUS Routine 09/15/2024 1:50 AM NUCLEAR POWERPLANT MECHANIC BILIRUBIN, DIRECT Routine 09/15/2024 1:5 0 AM NUCLEAR POWERPLANT MECHANIC COMPREHENSIVE METABOLIC PANEL Routine 09/15/2024 1:50 AM NUCLEAR POWERPLANT MECHANIC CBC WITHOUT DIFFERENTIAL Routine 09/15/2024 1:50 AM NUCLEAR POWERPLANT MECHANIC MAGNESIUM Routine 09/15/2024 1:50 AM NUCLEAR POWERPLANT MECHANIC POCT GLUCOSE DEVICE Routine 09/15/2024 12:53 AM NUCLEAR POWERPLANT MECHANIC POCT GLUCOSE DEVICE Routine 09/14/2024 11:15 PM NUCLEAR POWERPLANT MECHANIC APTT Timed 09/14/2024 9:19 PM NUCLEAR POWERPLANT MECHANIC POCT GLUCOSE DEVICE Routine 09/14/2024 9 :16 PM NUCLEAR POWERPLANT MECHANIC POCT GLUCOSE DEVICE Routine 09/14/2024 7 :20 PM NUCLEAR POWERPLANT MECHANIC POCT GLUCOSE DEVICE Routine 09/14/2024 6 :16 PM NUCLEAR POWERPLANT MECHANIC POCT GLUCOSE DEVICE Routine 09/14/2024 4 :55 PM NUCLEAR POWERPLANT MECHANIC POCT GLUCOSE DEVICE Routine 09/14/2024 4 :10 PM NUCLEAR POWERPLANT MECHANIC POCT GLUCOSE DEVICE Routine 09/14/2024 3 :03 PM NUCLEAR POWERPLANT MECHANIC EGFR Timed 09/14/2024 1:05 PM NUCLEAR POWERPLANT MECHANIC RENAL FUNCTION PANEL Timed 09/14/2024 1:05 PM NUCLEAR [employer]OWER[employer]ANT MECH[employer]IC APTT Timed 09/14/2024 1:05 PM NUCLEAR POWERPLANT MECHANIC POCT GLUCOSE DEVICE Routine 09/14/2024 12:55 PM NUCLEAR POWERPLANT MECHANIC POCT GLUCOSE DEVICE Routine 09/14/2024 12:01 PM NUCLEAR POWERPLANT MECHANIC POCT GLUCOSE DEVICE Routine 09/14/2024 11:05 AM NUCLEAR POWERPLANT MECHANIC POCT GLUCOSE DEVICE Routine 09/14/2024 10:04 AM NUCLEAR POWERPLANT MECHANIC BLOOD CULTURE STAT 09/14/2024 9:42 AM NUCLEAR POWERPLANT MECHANIC BLOOD CULTURE STAT 09/14/2024 9:42 AM NUCLEAR POWERPLANT MECHANIC POCT GLUCOSE DEVICE Routine 09/14/2024 8 :56 AM NUCLEAR POWERPLANT MECHANIC BLOOD GAS, ARTERIAL STAT 09/14/2024 8 :08 AM NUCLEAR POWERPLANT MECHANIC POCT GLUCOSE DEVICE Routine 09/14/2024 7 :50 AM NUCLEAR POWER[employer]ANT MECHANIC APTT Timed 09/14/2024 6:06 AM NUCLEAR POWERPLANT MECHANIC POCT GLUCOSE DEVICE Routine 09/14/2024 4 :10 AM NUCLEAR POWERPLANT MECHANIC XR CHEST 1 VIEW IP Routine 09/14/2024 3:10 AM NUCLEAR POWERPLANT MECHANIC MANUAL DIFFERENTIAL Routine 09/14/2024 1 :59 AM NUCLEAR POWER[employer]ANT MECHANIC EGFR Routine 09/14/2024 1:59 AM NUCLEAR POWERPLANT MECHANIC PHOSPHORUS Routine 09/14/2024 1:59 AM NUCLEAR POWERPLANT MECHANIC BILIRUBIN, DIRECT Routine 09/14/2024 1:5 9 AM NUCLEAR POWERPLANT MECHANIC COMPREHENSIVE METABOLIC PANEL Routine 09/14/2024 1:59 AM NUCLEAR POWERPLANT MECHANIC CBC WITHOUT DIFFERENTIAL Routine 09/14/2024 1:59 AM NUCLEAR POWER[employer]ANT MECHANIC MAGNESIUM Routine 09/14/2024 1:59 AM NUCLEAR POWERPLANT MECHANIC POCT GLUCOSE DEVICE Routine 09/14/2024 12:41 AM NUCLEAR POWERPLANT MECHANIC APTT Timed 09/13/2024 9:58 PM NUCLEAR POWERPLANT MECHANIC XR ABDOMEN ERECT AND OR DECUBITS 2 VIEWS IP Routine 09/13/2024 9:41 PM NUCLEAR POWER[employer]ANT MECHANIC POCT GLUCOSE DEVICE Routine 09/13/2024 7 :57 PM NUCLEAR POWER[employer]ANT MECHANIC EGFR Timed 09/13/2024 6:33 PM NUCLEAR POWER[employer]ANT MECHANIC RENAL FUNCTION PANEL Timed 09/13/2024 6:33 PM NUCLEAR POWER[employer]ANT MECHANIC ECG 12-LEAD STAT 09/13/2024 5:24 PM NUCLEAR POWERPLANT MECHANIC POCT GLUCOSE DEVICE Routine 09/13/2024 4 :29 PM NUCLEAR POWERPLANT MECHANIC POCT GLUCOSE DEVICE Routine 09/13/2024 3 :18 PM NUCLEAR POWERPLANT MECHANIC POCT GLUCOSE DEVICE Routine 09/13/2024 2 :29 PM NUCLEAR POWER[employer]ANT MECHANIC APTT Timed 09/13/2024 2:28 PM NUCLEAR POWERPLANT MECHANIC POCT GLUCOSE DEVICE Routine 09/13/2024 1 :10 PM NUCLEAR POWER[employer]ANT MECHANIC EGFR Timed 09/13/2024 12:22 PM NUCLEAR POWERPLANT MECHANIC PHOSPHORUS Timed 09/13/2024 12:22 PM NUCLEAR POWER[employer]ANT MECHANIC MAGNESIUM Timed 09/13/2024 12:22 PM NUCLEAR POWER[employer]ANT MECHANIC BASIC METABOLIC PANEL Timed 09/13/2024 12:22 PM NUCLEAR POWERPLANT MECHANIC POCT GLUCOSE DEVICE Routine 09/13/2024 12:20 PM NUCLEAR POWERPLANT MECHANIC US CAROTIDS DUPLEX BILATERAL IP Routine 09/13/2024 11:55 AM NUCLEAR POWERPLANT MECHANIC TRANSTHORACIC ECHO (TTE) COMPLETE W DOPPLER/CF W CONTRAST Routine 09/13/2024 11:24 AM NUCLEAR POWERPLANT MECHANIC POCT GLUCOSE DEVICE Routine 09/13/2024 11:12 AM NUCLEAR POWERPLANT MECHANIC URINALYSIS, MICROSCOPIC ONLY Routine 09/13/2024 9:45 AM NUCLEAR POWERPLANT MECHANIC DIC SCHISTOCYTES STAT 09/13/2024 9:45 AM NUCLEAR POWERPLANT MECHANIC DIC PLATELET STAT 09/13/2024 9:45 AM NUCLEAR POWERPLANT MECHANIC DIC COAGULATION STAT 09/13/2024 9:45 AM NUCLEAR POWERPLANT MECHANIC DRUGS OF ABUSE SCREEN, URINE WITHOUT CONFIRMATION Routine 09/13/2024 9:45 AM NUCLEAR POWERPLANT MECHANIC HIT ANTIBODIES W/REFLEX TO SEROTONIN RELEASE ASSAY (ASHLEY) Routine 09/13/2024 9:45 AM NUCLEAR POWERPLANT MECHANIC DIC PROFILE STAT 09/13/2024 9:45 AM NUCLEAR POWERPLANT MECHANIC AMMONIA STAT 09/13/2024 9:45 AM NUCLEAR POWERPLANT MECHANIC URINE CULTURE Routine 09/13/2024 9:45 AM NUCLEAR POWERPLANT MECHANIC URINALYSIS AND REFLEX TO MICROSCOPIC AND CULTURE Routine 09/13/2024 9:45 AM NUCLEAR POWERPLANT MECHANIC POCT GLUCOSE DEVICE Routine 09/13/2024 9 :31 AM NUCLEAR POWERPLANT MECHANIC ADD ON LAB TEST Add-On 09/13/2024 9:25 AM NUCLEAR POWERPLANT MECHANIC ADD ON LAB TEST Add-On 09/13/2024 9:25 AM NUCLEAR POWERPLANT MECHANIC XR CHEST 1 VIEW Critical/Life- Threatening 09/13/2024 8:30 AM NUCLEAR POWERPLANT MECHANIC LIPASE Timed 09/13/2024 8:11 AM NUCLEAR POWERPLANT MECHANIC AMYLASE Timed 09/13/2024 8:11 AM NUCLEAR POWERPLANT MECHANIC BETA-HYDROXYBUTYRATE Timed 09/13/2024 8:11 AM NUCLEAR POWERPLANT MECHANIC EGFR Timed 09/13/2024 8:11 AM NUCLEAR POWERPLANT MECHANIC APTT Timed 09/13/2024 8:11 AM NUCLEAR POWERPLANT MECHANIC PHOSPHORUS Timed 09/13/2024 8:11 AM NUCLEAR POWERPLANT MECHANIC MAGNESIUM Timed 09/13/2024 8:11 AM NUCLEAR POWERPLANT MECHANIC BASIC METABOLIC PANEL Timed 09/13/2024 8:11 AM NUCLEAR POWERPLANT MECHANIC BLOOD GAS, ARTERIAL STAT 09/13/2024 7 :58 AM NUCLEAR POWERPLANT MECHANIC POCT GLUCOSE DEVICE Routine 09/13/2024 7 :54 AM NUCLEAR POWERPLANT MECHANIC POCT GLUCOSE DEVICE Routine 09/13/2024 6 :04 AM NUCLEAR POWERPLANT MECHANIC BLOOD CULTURE Routine 09/13/2024 5:22 AM NUCLEAR POWERPLANT MECHANIC POCT GLUCOSE DEVICE Routine 09/13/2024 5 :06 AM NUCLEAR POWERPLANT MECHANIC POCT GLUCOSE DEVICE Routine 09/13/2024 4 :[address] [address] [address] HEAD WO CONTRAST ED Urgent/IP Urgent 09/13/2024 3:40 AM NUCLEAR POWERPLANT MECHANIC POCT GLUCOSE DEVICE Routine 09/13/2024 3 :15 AM NUCLEAR POWERPLANT MECHANIC URINALYSIS, MICROSCOPIC ONLY Routine 09/13/2024 2:59 AM NUCLEAR POWERPLANT MECHANIC URINE CULTURE Routine 09/13/2024 2:59 AM NUCLEAR POWERPLANT MECHANIC URINALYSIS AND REFLEX TO MICROSCOPIC AND CULTURE Routine 09/13/2024 2:59 AM NUCLEAR POWERPLANT MECHANIC POCT GLUCOSE DEVICE Routine 09/13/2024 2 :03 AM NUCLEAR POWERPLANT MECHANIC ECG 12-LEAD STAT 09/13/2024 1:58 AM NUCLEAR POWERPLANT MECHANIC RESPIRATORY PATHOGEN PANEL Routine 09/13/2024 1:50 AM NUCLEAR POWERPLANT MECHANIC BLOOD CULTURE Routine 09/13/2024 1:50 AM NUCLEAR POWERPLANT MECHANIC EGFR STAT 09/13/2024 1:46 AM NUCLEAR POWERPLANT MECHANIC DIFFERENTIAL AUTO STAT 09/13/2024 1:4 6 AM NUCLEAR POWERPLANT MECHANIC HEMOGLOBIN A1C Routine 09/13/2024 1:46 AM NUCLEAR POWERPLANT MECHANIC TROPONIN T HIGH-SENSITIVITY Routine 09/13/2024 1:46 AM NUCLEAR POWERPLANT MECHANIC CBC WITH AUTO DIFFERENTIAL STAT 09/13/2024 1:46 AM NUCLEAR POWERPLANT MECHANIC PROTIME-INR STAT 09/13/2024 1:46 AM NUCLEAR POWERPLANT MECHANIC APTT STAT 09/13/2024 1:46 AM NUCLEAR POWERPLANT MECHANIC PRO B-TYPE NATRIURETIC PEPTIDE STAT 09/13/2024 1:46 AM NUCLEAR POWERPLANT MECHANIC PHOSPHORUS STAT 09/13/2024 1:46 AM NUCLEAR POWERPLANT MECHANIC MAGNESIUM STAT 09/13/2024 1:46 AM NUCLEAR POWERPLANT MECHANIC LACTATE STAT 09/13/2024 1:46 AM NUCLEAR POWERPLANT MECHANIC COMPREHENSIVE METABOLIC PANEL STAT 09/13/2024 1:46 AM NUCLEAR POWERPLANT MECHANIC TYPE AND SCREEN STAT 09/13/2024 1:46 AM NUCLEAR POWERPLANT MECHANIC POCT GLUCOSE DEVICE Routine 09/13/2024 1 :30 AM NUCLEAR POWERPLANT MECHANIC SERUM LIPID PANEL Routine 06/26/2014 8:1 1 AM NUCLEAR POWERPLANT MECHANIC COLONOSCOPY REPORT 06/07/2014 from Last 3 Months or Most Recently Relevant to Health Maintenance Results * POCT glucose (10/01/2024 4:34 PM NUCLEAR POWERPLANT MECHANIC) Glucose, POC 143 70 - 199 mg/dL Comment: For Glucose values <35 mg/dl when Hematocrit is >60 mg/dl,the test may not accurately detect significant hypoglycemia,and testing in the Laboratory should be considered if clinically indicated. Blood 10/01/2024 4:34 PM NUCLEAR POWERPLANT MECHANIC 10/01/2024 4:34 PM NUCLEAR POWERPLANT MECHANIC Chai Beck MD LAB POCT ORDERABLES - DEVICE Final Result Performing Organization Address [facility] Co de Phone Number [facility] [address] Department [place] [address] * POCT glucose (10/01/2024 11:48 AM NUCLEAR POWERPLANT MECHANIC) Glucose, POC 145 70 - 199 mg/dL Comment: For Glucose values <35 mg/dl when Hematocrit is >60 mg/dl,the test may not accurately detect significant hypoglycemia,and testing in the Laboratory should be considered if clinically indicated. Blood 10/01/2024 11:4 8 AM NUCLEAR POWERPLANT MECHANIC 10/01/2024 11:48 AM NUCLEAR POWERPLANT MECHANIC Chai Beck MD LAB POCT ORDERABLES - DEVICE Final Result Performing Organization Address [facility] Co de Phone Number [facility] [address] Department [place] [address] * XR Chest 1 View (10/01/2024 9:10 AM NUCLEAR POWERPLANT MECHANIC) Anatomical Region Laterality Modality Body, Chest N/A Computed Radiogr aphy 10/01/2024 9:17 AM NUCLEAR POWERPLANT MECHANIC Impressions 10/01/2024 9:17 AM NUCLEAR POWERPLANT MECHANIC Comparison 09/24/2024 Improvement in the left lower lobe and lingular consolidation. There is now a small left pleural effusion. Right lung is clear. There is no pneumothorax. The cardiomediastinal silhouette is unchanged.. Electronically signed by: Phillip Mathis MD Narrative 10/01/2024 9:17 AM NUCLEAR POWERPLANT MECHANIC Chest one view HISTORY: Recent pneumonia treated [...] unchanged.. Electronically signed by: Phillip Mathis MD us Timothy Augustin MD IMG XR PROCEDURES Final Resul t * (ABNORMAL) eGFR (10/01/2024 6:57 AM NUCLEAR POWERPLANT MECHANIC) eGFR 54(L) >=60 mL/min/1. 73 m2 Comment: [...] data was last reviewed 2021. Blood 10/01/2024 6:57 AM NUCLEAR POWERPLANT MECHANIC 10/01/2024 7:30 AM NUCLEAR POWERPLANT MECHANIC us Timothy Augustin MD LAB BLOOD ORDERABLES Final Re sult [facility] [address] Department [place] [address] * Magnesium (10/01/2024 6:57 AM NUCLEAR POWERPLANT MECHANIC) Pathologist [facility] Magnesium 1.5 1.4 - 2.5 mg/dL Blood 10/01/2024 6:57 AM NUCLEAR POWERPLANT MECHANIC 10/01/2024 7:30 AM NUCLEAR POWERPLANT MECHANIC Arnulfo Jordan MD LAB BLOOD ORDERABLES Final Result Performing Organization Address City/[facility]/ZIP Co de Phone Number [facility] [address] [place] [address] * (ABNORMAL) Basic metabolic panel (10/01/2024 6:57 AM NUCLEAR POWERPLANT MECHANIC) Pathologist [facility] Sodium 140 135 - 145 mmol/L Potassium, pl 2.9(L) 3.3 - 4.9 mmol/L [facility] Chloride 108 97 - 110 mmol/L [facility] CO2 22 22 - 32 mmol/L [facility] Anion gap 10 2 - 15 mmol/L [facility] BUN 22 6 - 25 mg/dL [facility] Creatinine 1.23(H) 0.60 - 1.10 mg/dL [facility] Glucose 162 70 - 199 mg/dL [facility] Comment: Interpretive Data Fasting glucose >/= 126 [...] 2022. Calcium 8.0(L) 8.5 - 10.3 mg/dL [facility] Blood 10/01/2024 6:57 AM NUCLEAR POWERPLANT MECHANIC 10/01/2024 7:30 AM NUCLEAR POWERPLANT MECHANIC Timothy Augustin MD LAB BLOOD ORDERABLES Final Re sult Performing Organization Address City/[facility]/ZIP Co de Phone Number [facility] [address] [place] [address] * POCT glucose (10/01/2024 6:04 AM NUCLEAR POWERPLANT MECHANIC) Glucose, POC 179 70 - 199 mg/dL Comment: For Glucose values <35 mg/dl when Hematocrit is >60 mg/dl,the test may not accurately detect significant hypoglycemia,and testing in the Laboratory should be considered if clinically indicated. Blood 10/01/2024 6:04 AM NUCLEAR POWERPLANT MECHANIC 10/01/2024 6:04 AM NUCLEAR POWERPLANT MECHANIC Arnulfo Jordan MD LAB POCT ORDERABLES - DEVIC E Final Result [facility] [address] [place] [address] * POCT glucose (10/01/2024 2:00 AM NUCLEAR POWERPLANT MECHANIC) Glucose, POC 168 70 - 199 mg/dL Comment: For Glucose values <35 mg/dl when Hematocrit is >60 mg/dl,the test may not accurately detect significant hypoglycemia,and testing in the Laboratory should be considered if clinically indicated. Blood 10/01/2024 2:00 AM NUCLEAR POWERPLANT MECHANIC 10/01/2024 2:00 AM NUCLEAR POWERPLANT MECHANIC Arnulfo Jordan MD LAB POCT ORDERABLES - DEVIC E Final Result Performing Organization Address City/[facility]/ZIP Co de Phone Number [facility] [address] [place] [address] * POCT glucose (09/30/2024 9:45 PM NUCLEAR POWERPLANT MECHANIC) Glucose, POC 173 70 - 199 mg/dL Comment: For Glucose values <35 mg/dl when Hematocrit is >60 mg/dl,the test may not accurately detect significant hypoglycemia,and testing in the Laboratory should be considered if clinically indicated. Blood 09/30/2024 9:45 PM NUCLEAR POWERPLANT MECHANIC 09/30/2024 9:45 PM NUCLEAR POWERPLANT MECHANIC Arnulfo Jordan MD LAB POCT ORDERABLES - DEVIC E Final Result Performing Organization Address [facility] de Phone Number [facility] [address] [facility] [employer] [place] [address] * (ABNORMAL) POCT glucose (09/30/2024 4:52 PM NUCLEAR POWERPLANT MECHANIC) Glucose, POC 213(H) 70 - 199 mg/dL Comment: For Glucose values <35 mg/dl when Hematocrit is >60 mg/dl,the test may not accurately detect significant hypoglycemia,and testing in the Laboratory should be considered if clinically indicated. Blood 09/30/2024 4:52 PM NUCLEAR POWERPLANT MECHANIC 09/30/2024 4:52 PM NUCLEAR POWERPLANT MECHANIC Arnulfo Jordan MD LAB POCT ORDERABLES - DEVIC E Final Result Performing Organization Address [facility] de Phone Number [facility] [address] [facility] [employer] [place] [address] * POCT glucose (09/30/2024 11:39 AM NUCLEAR POWERPLANT MECHANIC) Glucose, POC 139 70 - 199 mg/dL Comment: For Glucose values <35 mg/dl when Hematocrit is >60 mg/dl,the test may not accurately detect significant hypoglycemia,and testing in the Laboratory should be considered if clinically indicated. Blood 09/30/2024 11:3 9 AM NUCLEAR POWERPLANT MECHANIC 09/30/2024 11:39 AM NUCLEAR POWERPLANT MECHANIC Arnulfo Jordan MD LAB POCT ORDERABLES - DEVIC E Final Result Performing Organization Address [facility] de Phone Number [facility] [address] [facility] [employer] [address] * POCT glucose (09/30/2024 8:36 AM NUCLEAR POWERPLANT MECHANIC) Glucose, POC 116 70 - 199 mg/dL Comment: For Glucose values <35 mg/dl when Hematocrit is >60 mg/dl,the test may not accurately detect significant hypoglycemia,and testing in the Laboratory should be considered if clinically indicated. Blood 09/30/2024 8:36 AM NUCLEAR POWERPLANT MECHANIC 09/30/2024 8:36 AM NUCLEAR POWERPLANT MECHANIC Arnulfo Jordan MD LAB POCT ORDERABLES - DEVIC E Final Result Performing Organization Address [facility] Co de Phone Number [facility] [address] [facility] [employer] [place] [address] * POCT glucose (09/30/2024 5:29 AM NUCLEAR POWERPLANT MECHANIC) Glucose, POC 110 70 - 199 mg/dL Comment: For Glucose values <35 mg/dl when Hematocrit is >60 mg/dl,the test may not accurately detect significant hypoglycemia,and testing in the Laboratory should be considered if clinically indicated. Blood 09/30/2024 5:29 AM NUCLEAR POWERPLANT MECHANIC 09/30/2024 5:29 AM NUCLEAR POWERPLANT MECHANIC Arnulfo Jordan MD LAB POCT ORDERABLES - DEVIC E Final Result Performing Organization Address [facility] de Phone Number [facility] [address] [place] [address] * POCT glucose (09/30/2024 2:22 AM NUCLEAR POWERPLANT MECHANIC) Glucose, POC 183 70 - 199 mg/dL Comment: For Glucose values <35 mg/dl when Hematocrit is >60 mg/dl,the test may not accurately detect significant hypoglycemia,and testing in the Laboratory should be considered if clinically indicated. Blood 09/30/2024 2:22 AM NUCLEAR POWERPLANT MECHANIC 09/30/2024 2:22 AM NUCLEAR POWERPLANT MECHANIC Arnulfo Jordan MD LAB POCT ORDERABLES - DEVIC E Final Result Performing Organization Address [facility] Co de Phone Number [facility] [address] [facility] [employer] [place] [address] * POCT glucose (09/29/2024 8:35 PM NUCLEAR POWERPLANT MECHANIC) Glucose, POC 192 70 - 199 mg/dL Comment: For Glucose values <35 mg/dl when Hematocrit is >60 mg/dl,the test may not accurately detect significant hypoglycemia,and testing in the Laboratory should be considered if clinically indicated. Blood 09/29/2024 8:35 PM NUCLEAR POWERPLANT MECHANIC 09/29/2024 8:35 PM NUCLEAR POWERPLANT MECHANIC Arnulfo Jordan MD LAB POCT ORDERABLES - DEVIC E Final Result Performing Organization Address [facility] de Phone Number [facility] [address] [facility] [employer] [place] [address] * (ABNORMAL) POCT glucose (09/29/2024 5:35 PM NUCLEAR POWERPLANT MECHANIC) [facility] Glucose, POC 203(H) 70 - 199 mg/dL Comment: For Glucose values <35 mg/dl when Hematocrit is >60 mg/dl,the test may not accurately detect significant hypoglycemia,and testing in the Laboratory should be considered if clinically indicated. Blood 09/29/2024 5:35 PM NUCLEAR POWERPLANT MECHANIC 09/29/2024 5:35 PM NUCLEAR POWERPLANT MECHANIC Arnulfo Jordan MD LAB POCT ORDERABLES - DEVIC E Final Result Performing Organization Address [facility] de Phone Number [facility] [address] [place] [address] * (ABNORMAL) eGFR (09/29/2024 3:33 PM NUCLEAR POWERPLANT MECHANIC) Pathologist [facility] eGFR 58(L) >=60 mL/min/1. 73 m2 Comment: [...] last reviewed 2021. Blood 09/29/2024 3:33 PM NUCLEAR POWERPLANT MECHANIC 09/29/2024 3:45 PM NUCLEAR POWERPLANT MECHANIC us Arnulfo Jordan MD LAB BLOOD ORDERABLES Final Result [facility] [address] Department [place] [address] * (ABNORMAL) Differential, auto (09/29/2024 3:33 PM NUCLEAR POWERPLANT MECHANIC) Neutrophil abs 6.6(H) 1.5 - 6.5 K/cumm Imm gran abs 0.1 0.0 - 0.1 K/cumm [facility] Lymphocyte abs 0.9 0.8 - 3.3 K/cumm [facility] Monocyte abs 0.6 0.2 - 0.8 K/cumm [facility] Eosinophil abs 0.1 0.0 - 0.5 K/cumm [facility] Basophil abs 0.1 0.0 - 0.1 K/cumm [facility] Neutrophil pct 79.1 % [facility] Comment: Interpretive Data Percent cell count reference ranges are not reported, since discordance with absolute values may lead to misinterpretation of CBC data. Current Interpretive Data was last revised on 2017. Imm gran pct 0.6 % [facility] Comment: Interpretive Data Percent cell count reference ranges are not reported, since discordance with absolute values may lead to misinterpretation of CBC data. Current Interpretive Data was last revised on 2017. Lymphocyte pct 11.1 % [facility] Comment: Interpretive Data Percent cell count reference ranges are not reported, since discordance with absolute values may lead to misinterpretation of CBC data. Current Interpretive Data was last revised on 2017. Monocyte pct 7.6 % [facility] Comment: Interpretive Data Percent cell count reference ranges are not reported, since discordance with absolute values may lead to misinterpretation of CBC data. Current Interpretive Data was last revised on 2017. Eosinophil pct 0.6 % [facility] Comment: Interpretive Data Percent cell count reference ranges are not reported, since discordance with absolute values may lead to misinterpretation of CBC data. Current Interpretive Data was last revised on 2017. Basophil pct 1.0 % [facility] Comment: Interpretive Data Percent cell count reference ranges are not reported, since discordance with absolute values may lead to misinterpretation of CBC data. Current Interpretive Data was last revised on 2017. Blood 09/29/2024 3:33 PM NUCLEAR POWERPLANT MECHANIC 09/29/2024 3:45 PM NUCLEAR POWERPLANT MECHANIC us Arnulfo Jordan MD LAB BLOOD ORDERABLES Final Result [facility] [address] Department [place] [address] * (ABNORMAL) CBC with auto differential (09/29/2024 3:33 PM NUCLEAR POWERPLANT MECHANIC) WBC 8.3 3.8 - 9.9 K/cumm Hgb 7.8(L) 11.9 - 15.5 g/dL [facility] Hct 24.8(L) 35.6 - 45.5 % [facility] Plt 291 150 - 400 K/cumm [facility] MPV 10.9 9.1 - 12.3 fL [facility] RBC 2.59(L) 3.90 - 5.20 M/cumm [facility] MCV 95.8 81.3 - 96.4 fL [facility] MCH 30.1 27.1 - 33.3 pg [facility] MCHC 31.5(L) 32.3 - 35.7 g/dL [facility] RDW CV 16.6(H) 11.1 - 14.9 % [facility] RDW SD 56.7(H) 35.7 - 48.1 fL [facility] NRBC abs 0.02(H) 0.00 - 0.01 K/cumm [facility] Blood 09/29/2024 3:33 PM NUCLEAR POWERPLANT MECHANIC 09/29/2024 3:45 PM NUCLEAR POWERPLANT MECHANIC Arnulfo Jordan MD LAB BLOOD ORDERABLES Final Result [facility] [address] Department [place] [address] * (ABNORMAL) Comprehensive metabolic panel (09/29/2024 3:33 PM NUCLEAR POWERPLANT MECHANIC) Sodium 141 135 - 145 mmol/L Potassium, pl 2.9(L) 3.3 - 4.9 mmol/L [facility] Chloride 110 97 - 110 mmol/L [facility] CO2 20(L) 22 - 32 mmol/L [facility] Anion gap 11 2 - 15 mmol/L [facility] BUN 19 6 - 25 mg/dL [facility] Creatinine 1.15(H) 0.60 - 1.10 mg/dL [facility] Glucose 207(H) 70 - 199 mg/dL [facility] Comment: Interpretive Data Fasting glucose >/= 126 [...] 2022. Calcium 7.7(L) 8.5 - 10.3 mg/dL [facility] Bilirubin, total 0.2 0.1 - 1.2 mg/dL [facility] Protein, pl 6.4(L) 6.5 - 8.5 g/dL [facility] Albumin 1.9(L) 3.5 - 5.0 g/dL [facility] Alk phos 170(H) 40 - 130 Units/L [facility] ALT 12 7 - 45 Units/L [facility] AST 27 10 - 45 Units/L [facility] Comment:Slightly Hemolyzed S pecimen Blood 09/29/2024 3:33 PM NUCLEAR POWERPLANT MECHANIC 09/29/2024 3:45 PM NUCLEAR POWERPLANT MECHANIC Result [facility] Arnulfo Jordan MD LAB BLOOD ORDERABLES Final Result Performing Organization Address City/[facility]/ZIP Co de Phone Number [facility] [address] [facility] [employer] [place] [address] * POCT glucose (09/29/2024 1:43 PM NUCLEAR POWERPLANT MECHANIC) Glucose, POC 164 70 - 199 mg/dL Comment: For Glucose values <35 mg/dl when Hematocrit is >60 mg/dl,the test may not accurately detect significant hypoglycemia,and testing in the Laboratory should be considered if clinically indicated. Blood 09/29/2024 1:43 PM NUCLEAR POWERPLANT MECHANIC 09/29/2024 1:43 PM NUCLEAR POWERPLANT MECHANIC Result [facility] Arnulfo Jordan MD LAB POCT ORDERABLES - DEVIC E Final Result Performing Organization Address City/[facility]/ZIP Co de Phone Number [facility] [address] [facility] [place] [employer] [address] * POCT glucose (09/29/2024 9:49 AM NUCLEAR POWERPLANT MECHANIC) Glucose, POC 133 70 - 199 mg/dL Comment: For Glucose values <35 mg/dl when Hematocrit is >60 mg/dl,the test may not accurately detect significant hypoglycemia,and testing in the Laboratory should be considered if clinically indicated. Blood 09/29/2024 9:49 AM NUCLEAR POWERPLANT MECHANIC 09/29/2024 9:49 AM NUCLEAR POWERPLANT MECHANIC Result [facility] Arnulfo Jordan MD LAB POCT ORDERABLES - DEVIC E Final Result [facility] [address] [facility] [employer] [place] [address] * POCT glucose (09/29/2024 7:27 AM NUCLEAR POWERPLANT MECHANIC) Glucose, POC 114 70 - 199 mg/dL Comment: For Glucose values <35 mg/dl when Hematocrit is >60 mg/dl,the test may not accurately detect significant hypoglycemia,and testing in the Laboratory should be considered if clinically indicated. Blood 09/29/2024 7:27 AM NUCLEAR POWERPLANT MECHANIC 09/29/2024 7:27 AM NUCLEAR POWERPLANT MECHANIC Arnulfo Jordan MD LAB POCT ORDERABLES - DEVIC E Final Result Performing Organization Address [facility] Co de Phone Number [facility] [address] [facility] [employer] [place] [address] * POCT glucose (09/29/2024 5:31 AM NUCLEAR POWERPLANT MECHANIC) Glucose, POC 115 70 - 199 mg/dL Comment: For Glucose values <35 mg/dl when Hematocrit is >60 mg/dl,the test may not accurately detect significant hypoglycemia,and testing in the Laboratory should be considered if clinically indicated. Blood 09/29/2024 5:31 AM NUCLEAR POWERPLANT MECHANIC 09/29/2024 5:31 AM NUCLEAR POWERPLANT MECHANIC Arnulfo Jordan MD LAB POCT ORDERABLES - DEVIC E Final Result Performing Organization Address City/[facility]/ZIP Co de Phone Number [facility] [address] [facility] [employer] [place] [address] * POCT glucose (09/29/2024 1:25 AM NUCLEAR POWERPLANT MECHANIC) Glucose, POC 108 70 - 199 mg/dL Comment: For Glucose values <35 mg/dl when Hematocrit is >60 mg/dl,the test may not accurately detect significant hypoglycemia,and testing in the Laboratory should be considered if clinically indicated. Blood 09/29/2024 1:25 AM NUCLEAR POWERPLANT MECHANIC 09/29/2024 1:25 AM NUCLEAR POWERPLANT MECHANIC Arnulfo Jordan MD LAB POCT ORDERABLES - DEVIC E Final Result Performing Organization Address [facility] Co de Phone Number [facility] [address] [facility] [employer] [place] [address] * POCT glucose (09/28/2024 9:14 PM NUCLEAR POWERPLANT MECHANIC) Glucose, POC 106 70 - 199 mg/dL Comment: For Glucose values <35 mg/dl when Hematocrit is >60 mg/dl,the test may not accurately detect significant hypoglycemia,and testing in the Laboratory should be considered if clinically indicated. Blood 09/28/2024 9:14 PM NUCLEAR POWERPLANT MECHANIC 09/28/2024 9:14 PM NUCLEAR POWERPLANT MECHANIC Arnulfo Jordan MD LAB POCT ORDERABLES - DEVIC E Final Result Performing Organization Address [facility] de Phone Number [facility] [address] [place] [address] * POCT glucose (09/28/2024 5:12 PM NUCLEAR POWERPLANT MECHANIC) Glucose, POC 161 70 - 199 mg/dL Comment: For Glucose values <35 mg/dl when Hematocrit is >60 mg/dl,the test may not accurately detect significant hypoglycemia,and testing in the Laboratory should be considered if clinically indicated. Blood 09/28/2024 5:12 PM NUCLEAR POWERPLANT MECHANIC 09/28/2024 5:12 PM NUCLEAR POWERPLANT MECHANIC Arnulfo Jordan MD LAB POCT ORDERABLES - DEVIC E Final Result Performing Organization Address [facility] Co de Phone Number [facility] [address] [place] [address] * POCT glucose (09/28/2024 1:43 PM NUCLEAR POWERPLANT MECHANIC) Glucose, POC 173 70 - 199 mg/dL Comment: For Glucose values <35 mg/dl when Hematocrit is >60 mg/dl,the test may not accurately detect significant hypoglycemia,and testing in the Laboratory should be considered if clinically indicated. Blood 09/28/2024 1:43 PM NUCLEAR POWERPLANT MECHANIC 09/28/2024 1:43 PM NUCLEAR POWERPLANT MECHANIC Arnulfo Jordan MD LAB POCT ORDERABLES - DEVIC E Final Result Performing Organization Address [facility] Co de Phone Number [facility] [address] [place] [address] * POCT glucose (09/28/2024 9:16 AM NUCLEAR POWERPLANT MECHANIC) Glucose, POC 124 70 - 199 mg/dL Comment: For Glucose values <35 mg/dl when Hematocrit is >60 mg/dl,the test may not accurately detect significant hypoglycemia,and testing in the Laboratory should be considered if clinically indicated. Blood 09/28/2024 9:16 AM NUCLEAR POWERPLANT MECHANIC 09/28/2024 9:16 AM NUCLEAR POWERPLANT MECHANIC Arnulfo Jordan MD LAB POCT ORDERABLES - DEVIC E Final Result Performing Organization Address [facility] Co de Phone Number [facility] [address] Department [place] [address] * (ABNORMAL) eGFR (09/28/2024 7:09 AM NUCLEAR POWERPLANT MECHANIC) eGFR 58(L) >=60 mL/min/1. 73 m2 Comment: [...] last reviewed 2021. Blood 09/28/2024 7:09 AM NUCLEAR POWERPLANT MECHANIC 09/28/2024 7:45 AM NUCLEAR POWERPLANT MECHANIC us Arnulfo Jordan MD LAB BLOOD ORDERABLES Final Result [facility] [address] Department [place] [address] * (ABNORMAL) Differential, auto (09/28/2024 7:09 AM NUCLEAR POWERPLANT MECHANIC) Neutrophil abs 5.7 1.5 - 6.5 K/cumm Imm gran abs 0.0 0.0 - 0.1 K/cumm [facility] Lymphocyte abs 0.7(L) 0.8 - 3.3 K/cumm [facility] Monocyte abs 0.5 0.2 - 0.8 K/cumm [facility] Eosinophil abs 0.1 0.0 - 0.5 K/cumm [facility] Basophil abs 0.1 0.0 - 0.1 K/cumm [facility] Neutrophil pct 80.9 % [facility] Comment: Interpretive Data Percent cell count reference ranges are not reported, since discordance with absolute values may lead to misinterpretation of CBC data. Current Interpretive Data was last revised on 2017. Imm gran pct 0.4 % [facility] Comment: Interpretive Data Percent cell count reference ranges are not reported, since discordance with absolute values may lead to misinterpretation of CBC data. Current Interpretive Data was last revised on 2017. Lymphocyte pct 9.3 % [facility] Comment: Interpretive Data Percent cell count reference ranges are not reported, since discordance with absolute values may lead to misinterpretation of CBC data. Current Interpretive Data was last revised on 2017. Monocyte pct 6.9 % [facility] Comment: Interpretive Data Percent cell count reference ranges are not reported, since discordance with absolute values may lead to misinterpretation of CBC data. Current Interpretive Data was last revised on 2017. Eosinophil pct 1.5 % [facility] Comment: Interpretive Data Percent cell count reference ranges are not reported, since discordance with absolute values may lead to misinterpretation of CBC data. Current Interpretive Data was last revised on 2017. Basophil pct 1.0 % [facility] Comment: Interpretive Data Percent cell count reference ranges are not reported, since discordance with absolute values may lead to misinterpretation of CBC data. Current Interpretive Data was last revised on 2017. Blood 09/28/2024 7:09 AM NUCLEAR POWERPLANT MECHANIC 09/28/2024 7:45 AM NUCLEAR POWERPLANT MECHANIC Arnulfo Jordan MD LAB BLOOD ORDERABLES Final Result [facility] [address] Department [place] [address] * (ABNORMAL) CBC with auto differential (09/28/2024 7:09 AM NUCLEAR POWERPLANT MECHANIC) WBC 7.1 3.8 - 9.9 K/cumm Hgb 7.3(L) 11.9 - 15.5 g/dL [facility] Hct 24.5(L) 35.6 - 45.5 % [facility] Plt 285 150 - 400 K/cumm [facility] MPV 11.3 9.1 - 12.3 fL [facility] RBC 2.54(L) 3.90 - 5.20 M/cumm [facility] MCV 96.5(H) 81.3 - 96.4 fL [facility] MCH 28.7 27.1 - 33.3 pg [facility] MCHC 29.8(L) 32.3 - 35.7 g/dL [facility] RDW CV 16.5(H) 11.1 - 14.9 % [facility] RDW SD 57.2(H) 35.7 - 48.1 fL [facility] NRBC abs 0.00 0.00 - 0.01 K/cumm [facility] Blood 09/28/2024 7:09 AM NUCLEAR POWERPLANT MECHANIC 09/28/2024 7:45 AM NUCLEAR POWERPLANT MECHANIC Arnulfo Jordan MD LAB BLOOD ORDERABLES Final Result [facility] [address] Department [place] [address] * (ABNORMAL) Comprehensive metabolic panel (09/28/2024 7:09 AM NUCLEAR POWERPLANT MECHANIC) Sodium 142 135 - 145 mmol/L Potassium, pl 3.3 3.3 - 4.9 mmol/L [facility] Chloride 109 97 - 110 mmol/L [facility] CO2 21(L) 22 - 32 mmol/L [facility] Anion gap 12 2 - 15 mmol/L [facility] BUN 24 6 - 25 mg/dL [facility] Creatinine 1.15(H) 0.60 - 1.10 mg/dL [facility] Glucose 111 70 - 199 mg/dL [facility] Comment: Interpretive Data Fasting glucose >/= 126 [...] 2022. Calcium 8.1(L) 8.5 - 10.3 mg/dL [facility] Bilirubin, total 0.2 0.1 - 1.2 mg/dL [facility] Protein, pl 6.3(L) 6.5 - 8.5 g/dL [facility] Albumin 1.9(L) 3.5 - 5.0 g/dL [facility] Alk phos 163(H) 40 - 130 Units/L [facility] ALT 10 7 - 45 Units/L [facility] AST 28 10 - 45 Units/L [facility] Blood 09/28/2024 7:09 AM NUCLEAR POWERPLANT MECHANIC 09/28/2024 7:45 AM NUCLEAR POWERPLANT MECHANIC Arnulfo Jordan MD LAB BLOOD ORDERABLES Final Result Performing Organization Address [facility] de Phone Number [facility] [address] [facility] [employer] [address] * POCT glucose (09/28/2024 5:42 AM NUCLEAR POWERPLANT MECHANIC) Glucose, POC 123 70 - 199 mg/dL Comment: For Glucose values <35 mg/dl when Hematocrit is >60 mg/dl,the test may not accurately detect significant hypoglycemia,and testing in the Laboratory should be considered if clinically indicated. Blood 09/28/2024 5:42 AM NUCLEAR POWERPLANT MECHANIC 09/28/2024 5:42 AM NUCLEAR POWERPLANT MECHANIC us Arnulfo Jordan MD LAB POCT ORDERABLES - DEVIC E Final Result Performing Organization Address [facility] de Phone Number [facility] [address] [facility] [employer] [address] * POCT glucose (09/28/2024 1:31 AM NUCLEAR POWERPLANT MECHANIC) Glucose, POC 125 70 - 199 mg/dL Comment: For Glucose values <35 mg/dl when Hematocrit is >60 mg/dl,the test may not accurately detect significant hypoglycemia,and testing in the Laboratory should be considered if clinically indicated. Blood 09/28/2024 1:31 AM NUCLEAR POWERPLANT MECHANIC 09/28/2024 1:31 AM NUCLEAR POWERPLANT MECHANIC us Arnulfo Jordan MD LAB POCT ORDERABLES - DEVIC E Final Result Performing Organization Address [facility] Co de Phone Number [facility] [address] [place] [address] * POCT glucose (09/27/2024 9:14 PM NUCLEAR POWERPLANT MECHANIC) Glucose, POC 136 70 - 199 mg/dL Comment: For Glucose values <35 mg/dl when Hematocrit is >60 mg/dl,the test may not accurately detect significant hypoglycemia,and testing in the Laboratory should be considered if clinically indicated. Blood 09/27/2024 9:14 PM NUCLEAR POWERPLANT MECHANIC 09/27/2024 9:14 PM NUCLEAR POWERPLANT MECHANIC Arnulfo Jordan MD LAB POCT ORDERABLES - DEVIC E Final Result Performing Organization Address [facility] Co de Phone Number [facility] [address] [place] [address] * POCT glucose (09/27/2024 5:25 PM NUCLEAR POWERPLANT MECHANIC) Glucose, POC 112 70 - 199 mg/dL Comment: For Glucose values <35 mg/dl when Hematocrit is >60 mg/dl,the test may not accurately detect significant hypoglycemia,and testing in the Laboratory should be considered if clinically indicated. Blood 09/27/2024 5:25 PM NUCLEAR POWERPLANT MECHANIC 09/27/2024 5:25 PM NUCLEAR POWERPLANT MECHANIC Arnulfo Jordan MD LAB POCT ORDERABLES - DEVIC E Final Result Performing Organization Address [facility]/ZIP Co de Phone Number [facility] [address] [place] [address] * POCT glucose (09/27/2024 3:13 PM NUCLEAR POWERPLANT MECHANIC) Glucose, POC 101 70 - 199 mg/dL Comment: For Glucose values <35 mg/dl when Hematocrit is >60 mg/dl,the test may not accurately detect significant hypoglycemia,and testing in the Laboratory should be considered if clinically indicated. Blood 09/27/2024 3:13 PM NUCLEAR POWERPLANT MECHANIC 09/27/2024 3:13 PM NUCLEAR POWERPLANT MECHANIC us Arnulfo Jordan MD LAB POCT ORDERABLES - DEVIC E Final Result [facility] [address] Department [place] [address] * [place] Modified Barium Swallow W Video (09/27/2024 2:20 PM NUCLEAR POWERPLANT MECHANIC) Anatomical Region Laterality Modality Head and Neck N/A Radio Fluoroscop y 09/27/2024 2:33 PM NUCLEAR POWERPLANT MECHANIC Impressions 09/27/2024 3:03 PM NUCLEAR POWERPLANT MECHANIC 1. There is flash laryngeal penetration with [...] Zion Rodriguez M.D. Narrative 09/27/2024 3:03 PM NUCLEAR POWERPLANT MECHANIC EXAMINATION: MODIFIED BARIUM SWALLOW 09/27/2024 HISTORY: Dysphagia. [...] Result * POCT glucose (09/27/2024 10:05 AM NUCLEAR POWERPLANT MECHANIC) Pathologist [facility] Glucose, POC 89 70 - 199 mg/dL Comment: For Glucose values <35 mg/dl when Hematocrit is >60 mg/dl,the test may not accurately detect significant hypoglycemia,and testing in the Laboratory should be considered if clinically indicated. Blood 09/27/2024 10:0 5 AM NUCLEAR POWERPLANT MECHANIC 09/27/2024 10:05 AM NUCLEAR POWERPLANT MECHANIC us Arnulfo Jordan MD LAB POCT ORDERABLES - DEVIC E Final Result [facility] [address] Department [place] [address] * Iron profile - Add on lab test (09/27/2024 8:43 AM NUCLEAR POWERPLANT MECHANIC) Pathologist [facility] Acceptable Yes Blood 09/27/2024 8:43 AM NUCLEAR POWERPLANT MECHANIC 09/27/2024 8:43 AM NUCLEAR POWERPLANT MECHANIC Narrative [facility] - 09/27/2024 8:44 AM NUCLEAR POWERPLANT MECHANIC Name of Test->Iron profile Arnulfo Jordan MD LAB BLOOD ORDERABLES Final Result Performing Organization Address [facility] Co de Phone Number [facility] [address] Department [place] [address] * POCT glucose (09/27/2024 5:57 AM NUCLEAR POWERPLANT MECHANIC) [facility] Glucose, POC 74 70 - 199 mg/dL Comment: For Glucose values <35 mg/dl when Hematocrit is >60 mg/dl,the test may not accurately detect significant hypoglycemia,and testing in the Laboratory should be considered if clinically indicated. Blood 09/27/2024 5:57 AM NUCLEAR POWERPLANT MECHANIC 09/27/2024 5:57 AM NUCLEAR POWERPLANT MECHANIC Arnulfo Jordan MD LAB POCT ORDERABLES - DEVIC E Final Result Performing Organization Address [facility] Co de Phone Number [facility] [address] Department [place] [address] * (ABNORMAL) eGFR (09/27/2024 5:42 AM NUCLEAR POWERPLANT MECHANIC) [facility] eGFR 58(L) >=60 mL/min/1. 73 m2 [...] last reviewed 2021. Blood 09/27/2024 5:42 AM NUCLEAR POWERPLANT MECHANIC 09/27/2024 5:55 AM NUCLEAR POWERPLANT MECHANIC Arnulfo Jordan MD LAB BLOOD ORDERABLES Final Result [facility] [address] Department [place] [address] * (ABNORMAL) Differential, auto (09/27/2024 5:42 AM NUCLEAR POWERPLANT MECHANIC) Neutrophil abs 7.1(H) 1.5 - 6.5 K/cumm Imm gran abs 0.0 0.0 - 0.1 K/cumm [facility] Lymphocyte abs 0.7(L) 0.8 - 3.3 K/cumm [facility] Monocyte abs 0.6 0.2 - 0.8 K/cumm [facility] Eosinophil abs 0.2 0.0 - 0.5 K/cumm [facility] Basophil abs 0.1 0.0 - 0.1 K/cumm [facility] Neutrophil pct 80.9 % [facility] Comment: Interpretive Data Percent cell count reference ranges are not reported, since discordance with absolute values may lead to misinterpretation of CBC data. Current Interpretive Data was last revised on 2017. Imm gran pct 0.5 % [facility] Comment: Interpretive Data Percent cell count reference ranges are not reported, since discordance with absolute values may lead to misinterpretation of CBC data. Current Interpretive Data was last revised on 2017. Lymphocyte pct 8.4 % [facility] Comment: Interpretive Data Percent cell count reference ranges are not reported, since discordance with absolute values may lead to misinterpretation of CBC data. Current Interpretive Data was last revised on 2017. Monocyte pct 6.6 % [facility] Comment: Interpretive Data Percent cell count reference ranges are not reported, since discordance with absolute values may lead to misinterpretation of CBC data. Current Interpretive Data was last revised on 2017. Eosinophil pct 2.6 % [facility] Comment: Interpretive Data Percent cell count reference ranges are not reported, since discordance with absolute values may lead to misinterpretation of CBC data. Current Interpretive Data was last revised on 2017. Basophil pct 1.0 % [facility] Comment: Interpretive Data Percent cell count reference ranges are not reported, since discordance with absolute values may lead to misinterpretation of CBC data. Current Interpretive Data was last revised on 2017. Blood 09/27/2024 5:42 AM NUCLEAR POWERPLANT MECHANIC 09/27/2024 5:55 AM NUCLEAR POWERPLANT MECHANIC Arnulfo Jordan MD LAB BLOOD ORDERABLES Final Result Performing Organization Address [facility]/ZIP Co de Phone Number [facility] [address] [facility] [employer] [place], [place] [id number] * (ABNORMAL) Iron profile w/ IBC (09/27/2024 5:42 AM NUCLEAR POWERPLANT MECHANIC) Pathologist [facility] Iron 25(L) 35 - 145 mcg/dL TIBC 156(L) 250 - 400 mcg/dL [facility] Transferrin saturation 16(L) 20 - 50 % [facility] Blood 09/27/2024 5:42 AM NUCLEAR POWERPLANT MECHANIC 09/27/2024 5:55 AM NUCLEAR POWERPLANT MECHANIC Arnulfo Jordan MD LAB BLOOD ORDERABLES Final Result Performing Organization Address City/[facility]/ZIP Co de Phone Number [facility] [address] [place] [employer] [place] [address] * (ABNORMAL) CBC with auto differential (09/27/2024 5:42 AM NUCLEAR POWERPLANT MECHANIC) WBC 8.8 3.8 - 9.9 K/cumm Hgb 7.2(L) 11.9 - 15.5 g/dL [facility] Hct 24.6(L) 35.6 - 45.5 % [facility] Plt 280 150 - 400 K/cumm [facility] MPV 11.4 9.1 - 12.3 fL [facility] RBC 2.60(L) 3.90 - 5.20 M/cumm [facility] MCV 94.6 81.3 - 96.4 fL [facility] MCH 27.7 27.1 - 33.3 pg [facility] MCHC 29.3(L) 32.3 - 35.7 g/dL [facility] RDW CV 16.1(H) 11.1 - 14.9 % [facility] RDW SD 54.5(H) 35.7 - 48.1 fL [facility] NRBC abs 0.00 0.00 - 0.01 K/cumm [facility] Blood 09/27/2024 5:42 AM NUCLEAR POWERPLANT MECHANIC 09/27/2024 5:55 AM NUCLEAR POWERPLANT MECHANIC Arnulfo Jordan MD LAB BLOOD ORDERABLES Final Result [facility] [address] Department [place] [address] * (ABNORMAL) Comprehensive metabolic panel (09/27/2024 5:42 AM NUCLEAR POWERPLANT MECHANIC) Sodium 143 135 - 145 mmol/L Potassium, pl 3.4 3.3 - 4.9 mmol/L [facility] Chloride 110 97 - 110 mmol/L [facility] CO2 22 22 - 32 mmol/L [facility] Anion gap 11 2 - 15 mmol/L [facility] BUN 25 6 - 25 mg/dL [facility] Creatinine 1.16(H) 0.60 - 1.10 mg/dL [facility] Glucose 77 70 - 199 mg/dL [facility] Comment: Interpretive Data Fasting glucose >/= 126 [...] 2022. Calcium 8.0(L) 8.5 - 10.3 mg/dL [facility] Bilirubin, total 0.3 0.1 - 1.2 mg/dL [facility] Protein, pl 6.0(L) 6.5 - 8.5 g/dL [facility] Albumin 2.1(L) 3.5 - 5.0 g/dL [facility] Alk phos 152(H) 40 - 130 Units/L [facility] ALT 12 7 - 45 Units/L [facility] AST 31 10 - 45 Units/L [facility] Blood 09/27/2024 5:42 AM NUCLEAR POWERPLANT MECHANIC 09/27/2024 5:55 AM NUCLEAR POWERPLANT MECHANIC Result [facility] Arnulfo Jordan MD LAB BLOOD ORDERABLES Final Result Performing Organization Address [facility] Co de Phone Number [facility] [address] [facility] [employer] [place] [address] * POCT glucose (09/27/2024 2:14 AM NUCLEAR POWERPLANT MECHANIC) Glucose, POC 78 70 - 199 mg/dL Comment: For Glucose values <35 mg/dl when Hematocrit is >60 mg/dl,the test may not accurately detect significant hypoglycemia,and testing in the Laboratory should be considered if clinically indicated. Blood 09/27/2024 2:14 AM NUCLEAR POWERPLANT MECHANIC 09/27/2024 2:14 AM NUCLEAR POWERPLANT MECHANIC Arnulfo Jordan MD LAB POCT ORDERABLES - DEVIC E Final Result Performing Organization Address [facility]/ZIP Co de Phone Number [facility] [address] [facility] [employer] [place] [address] * POCT glucose (09/26/2024 9:41 PM NUCLEAR POWERPLANT MECHANIC) Glucose, POC 79 70 - 199 mg/dL Comment: For Glucose values <35 mg/dl when Hematocrit is >60 mg/dl,the test may not accurately detect significant hypoglycemia,and testing in the Laboratory should be considered if clinically indicated. Blood 09/26/2024 9:41 PM NUCLEAR POWERPLANT MECHANIC 09/26/2024 9:41 PM NUCLEAR POWERPLANT MECHANIC Arnulfo Jordan MD LAB POCT ORDERABLES - DEVIC E Final Result Performing Organization Address [facility] de Phone Number [facility] [address] Department [place] [address] * POCT glucose (09/26/2024 6:18 PM NUCLEAR POWERPLANT MECHANIC) Pathologist [facility] Glucose, POC 91 70 - 199 mg/dL Comment: For Glucose values <35 mg/dl when Hematocrit is >60 mg/dl,the test may not accurately detect significant hypoglycemia,and testing in the Laboratory should be considered if clinically indicated. Blood 09/26/2024 6:18 PM NUCLEAR POWERPLANT MECHANIC 09/26/2024 6:18 PM NUCLEAR POWERPLANT MECHANIC Arnulfo Jordan MD LAB POCT ORDERABLES - DEVIC E Final Result Performing Organization Address [facility] de Phone Number [facility] [address] [place] [employer] [place] [address] * POCT glucose (09/26/2024 2:51 PM NUCLEAR POWERPLANT MECHANIC) [facility] Glucose, POC 89 70 - 199 mg/dL Comment: For Glucose values <35 mg/dl when Hematocrit is >60 mg/dl,the test may not accurately detect significant hypoglycemia,and testing in the Laboratory should be considered if clinically indicated. Blood 09/26/2024 2:51 PM NUCLEAR POWERPLANT MECHANIC 09/26/2024 2:51 PM NUCLEAR POWERPLANT MECHANIC Arnulfo Jordan MD LAB POCT ORDERABLES - DEVIC E Final Result Performing Organization Address [facility] de Phone Number [facility] [address] Department Laboratories [place], [place] [id number] * (ABNORMAL) CBC with auto differential (09/26/2024 2:03 PM NUCLEAR POWERPLANT MECHANIC) [facility] WBC 8.6 3.8 - 9.9 K/cumm Hgb 7.3(L) 11.9 - 15.5 g/dL [facility] Hct 24.2(L) 35.6 - 45.5 % [facility] Plt 308 150 - 400 K/cumm [facility] MPV 11.5 9.1 - 12.3 fL [facility] RBC 2.52(L) 3.90 - 5.20 M/cumm [facility] MCV 96.0 81.3 - 96.4 fL [facility] MCH 29.0 27.1 - 33.3 pg [facility] MCHC 30.2(L) 32.3 - 35.7 g/dL [facility] RDW CV 16.0(H) 11.1 - 14.9 % [facility] RDW SD 55.1(H) 35.7 - 48.1 fL [facility] NRBC abs 0.00 0.00 - 0.01 K/cumm [facility] Blood 09/26/2024 2:03 PM NUCLEAR POWERPLANT MECHANIC 09/26/2024 2:11 PM NUCLEAR POWERPLANT MECHANIC Arnulfo Jordan MD LAB BLOOD ORDERABLES Final Result [facility] [address] Department [place] [address] * (ABNORMAL) eGFR (09/26/2024 1:25 PM NUCLEAR POWERPLANT MECHANIC) [facility] eGFR 57(L) >=60 mL/min/1. 73 m2 Comment: [...] last reviewed 2021. Blood 09/26/2024 1:25 PM NUCLEAR POWERPLANT MECHANIC 09/26/2024 1:33 PM NUCLEAR POWERPLANT MECHANIC us Arnulfo Jordan MD LAB BLOOD ORDERABLES Final Result [facility] [address] Department [place] [address] * Differential, auto (09/26/2024 1:25 PM NUCLEAR POWERPLANT MECHANIC) Neutrophil abs See Comment 1.5 - 6.5 Comment:CBC to be recollecte d due to possible falsely low Hgb on09/26/2024 13:53:40 NUCLEAR POWERPLANT MECHANIC [id number] Imm gran abs See Comment 0.0 - 0.1 [facility] Comment:CBC to be recollecte d due to possible falsely low Hgb on09/26/2024 13:53:40 [employer] [id number] Lymphocyte abs See Comment 0.8 - 3.3 [facility] Comment:CBC to be recollecte d due to possible falsely low Hgb on09/26/2024 13:53:40 [employer] [id number] Monocyte abs See Comment 0.2 - 0.8 [facility] Comment:CBC to be recollecte d due to possible falsely low Hgb on09/26/2024 13:53:40 [employer] [id number] Eosinophil abs See Comment 0.0 - 0.5 [facility] Comment:CBC to be recollecte d due to possible falsely low Hgb on09/26/2024 13:53:40 [employer] [id number] Basophil abs See Comment 0.0 - 0.1 [facility] Comment:CBC to be recollecte d due to possible falsely low Hgb on09/26/2024 13:53:40 [employer] [id number] Neutrophil pct See Comment [facility] Comment: CBC to be recollected due to possible falsely low Hgb on09/26/2024 13:53:40 [employer] [id number] Interpretive Data Percent cell count reference ranges are not reported, since discordance with absolute values may lead to misinterpretation of CBC data. Current Interpretive Data was last revised on 2017. Imm gran pct See Comment [facility] Comment: CBC to be recollected due to possible falsely low Hgb on09/26/2024 13:53:40 [employer] [id number] Interpretive Data Percent cell count reference ranges are not reported, since discordance with absolute values may lead to misinterpretation of CBC data. Current Interpretive Data was last revised on 2017. Lymphocyte pct See Comment [facility] Comment: CBC to be recollected due to possible falsely low Hgb on09/26/2024 13:53:40 [employer] [id number] Interpretive Data Percent cell count reference ranges are not reported, since discordance with absolute values may lead to misinterpretation of CBC data. Current Interpretive Data was last revised on 2017. Monocyte pct See Comment [facility] Comment: CBC to be recollected due to possible falsely low Hgb on09/26/2024 13:53:40 [employer] [id number] Interpretive Data Percent cell count reference ranges are not reported, since discordance with absolute values may lead to misinterpretation of CBC data. Current Interpretive Data was last revised on 2017. Eosinophil pct See Comment [facility] Comment: CBC to be recollected due to possible falsely low Hgb on09/26/2024 13:53:40 [employer] [id number] Interpretive Data Percent cell count reference ranges are not reported, since discordance with absolute values may lead to misinterpretation of CBC data. Current Interpretive Data was last revised on 2017. Basophil pct See Comment [facility] Comment: CBC to be recollected due to possible falsely low Hgb on09/26/2024 13:53:40 [employer] [id number] Interpretive Data Percent cell count reference ranges are not reported, since discordance with absolute values may lead to misinterpretation of CBC data. Current Interpretive Data was last revised on 2017. Blood 09/26/2024 1:25 PM [employer] 09/26/2024 1:33 PM [employer] us Arnulfo Jordan MD LAB BLOOD ORDERABLES Edited Result - Final [facility] [address] Department [place] [address] * CBC with auto differential (09/26/2024 1:25 PM [employer]) WBC See Comment 3.8 - 9.9 Comment: Test results inaccurately filed to this patient's record. Test will be credited. CBC to be recollected due to possible falsely low Hgb on09/26/2024 13:53:40 [employer] [id number] Hgb See Comment 11.9 - 15.5 [facility] Comment: Test results inaccurately filed to this patient's record. Test will be credited. CBC to be recollected due to possible falsely low Hgb on09/26/2024 13:53:40 [employer] [id number] Hct See Comment 35.6 - 45.5 [facility] Comment: Test results inaccurately filed to this patient's record. Test will be credited. CBC to be recollected due to possible falsely low Hgb on09/26/2024 13:53:40 [employer] [id number] Plt See Comment 150 - 400 K/cumm [facility] Comment: Test results inaccurately filed to this patient's record. Test will be credited. CBC to be recollected due to possible falsely low Hgb on09/26/2024 13:53:40 [employer] [id number] MPV See Comment 9.1 - 12.3 [facility] Comment: Test results inaccurately filed to this patient's record. Test will be credited. CBC to be recollected due to possible falsely low Hgb on09/26/2024 13:53:40 [employer] [id number] RBC See Comment 3.90 - 5.20 [facility] Comment: Test results inaccurately filed to this patient's record. Test will be credited. CBC to be recollected due to possible falsely low Hgb on09/26/2024 13:53:40 [employer] [id number] MCV See Comment 81.3 - 96.4 [facility] Comment: Test results inaccurately filed to this patient's record. Test will be credited. CBC to be recollected due to possible falsely low Hgb on09/26/2024 13:53:40 [employer] [id number] MCH See Comment 27.1 - 33.3 [facility] Comment: Test results inaccurately filed to this patient's record. Test will be credited. CBC to be recollected due to possible falsely low Hgb on09/26/2024 13:53:40 [employer] [id number] MCHC See Comment 32.3 - 35.7 [facility] Comment: Test results inaccurately filed to this patient's record. Test will be credited. CBC to be recollected due to possible falsely low Hgb on09/26/2024 13:53:40 [employer] [id number] RDW CV See Comment 11.1 - 14.9 [facility] Comment: Test results inaccurately filed to this patient's record. Test will be credited. CBC to be recollected due to possible falsely low Hgb on09/26/2024 13:53:40 [employer] [id number] RDW SD See Comment 35.7 - 48.1 [facility] Comment: Test results inaccurately filed to this patient's record. Test will be credited. CBC to be recollected due to possible falsely low Hgb on09/26/2024 13:53:40 [employer] [id number] NRBC abs See Comment 0.00 - 0.01 K/cumm [facility] Comment:CBC to be recollecte d due to possible falsely low Hgb on09/26/2024 13:53:40 [employer] [id number] Blood 09/26/2024 1:25 PM [employer] 09/26/2024 1:33 PM [employer] us Arnulfo Jordan MD LAB BLOOD ORDERABLES Edited Result - Final [facility] [address] Department [place] [address] * (ABNORMAL) Comprehensive metabolic panel (09/26/2024 1:25 PM [employer]) Sodium 142 135 - 145 mmol/L Potassium, pl 3.2(L) 3.3 - 4.9 mmol/L [facility] Chloride 112(H) 97 - 110 mmol/L [facility] CO2 21(L) 22 - 32 mmol/L [facility] Anion gap 9 2 - 15 mmol/L [facility] BUN 23 6 - 25 mg/dL [facility] Creatinine 1.18(H) 0.60 - 1.10 mg/dL [facility] Glucose 79 70 - 199 mg/dL [facility] Comment: Interpretive Data Fasting glucose >/= 126 [...] 2022. Calcium 7.4(L) 8.5 - 10.3 mg/dL [facility] Bilirubin, total 0.2 0.1 - 1.2 mg/dL [facility] Protein, pl 5.6(L) 6.5 - 8.5 g/dL [facility] Albumin 1.8(L) 3.5 - 5.0 g/dL [facility] Alk phos 135(H) 40 - 130 Units/L [facility] ALT 13 7 - 45 Units/L [facility] AST 32 10 - 45 Units/L [facility] Blood 09/26/2024 1:25 PM [employer] 09/26/2024 1:33 PM [employer] us Arnulfo Jordan MD LAB BLOOD ORDERABLES Final Result [facility] [address] Department [place] [address] * POCT glucose (09/26/2024 10:10 AM [employer]) Glucose, POC 100 70 - 199 mg/dL Comment: For Glucose values <35 mg/dl when Hematocrit is >60 mg/dl,the test may not accurately detect significant hypoglycemia,and testing in the Laboratory should be considered if clinically indicated. Blood 09/26/2024 10:1 0 AM [employer] 09/26/2024 10:10 AM [employer] Arnulfo Jordan MD LAB POCT ORDERABLES - DEVIC E Final Result [facility] [address] [facility] [place] [address] * POCT glucose (09/26/2024 5:04 AM [employer]) Pathologist [facility] Glucose, POC 94 70 - 199 mg/dL Comment: For Glucose values <35 mg/dl when Hematocrit is >60 mg/dl,the test may not accurately detect significant hypoglycemia,and testing in the Laboratory should be considered if clinically indicated. Blood 09/26/2024 5:04 AM [employer] 09/26/2024 5:04 AM [employer] Arnulfo Jordan MD LAB POCT ORDERABLES - DEVIC E Final Result [facility] [address] [place] [address] * C. difficile testing Stool (09/26/2024 2:18 AM [employer]) [facility] GDH Result Negative Negative Toxin Result Negative Negative [facility] C. diff result Negative, free toxin Negative, free toxin [facility] C. diff interp Negative for toxigenic Clostridioides (Clostridium) difficile. Analysis was performed using a glutamate dehydrogenase antigen detection assay combined with a C. difficile toxin detection assay. [facility] Stool 09/26/2024 2:18 AM [employer] 09/26/2024 2:41 AM [employer] Arnulfo Jordan MD LAB MICROBIOLOGY - GENERAL ORDERABLES Final Result Performing Organization Address [facility] de Phone Number [facility] [address] [facility] [employer] [place] [address] * POCT glucose (09/26/2024 12:01 AM [employer]) Glucose, POC 108 70 - 199 mg/dL Comment: For Glucose values <35 mg/dl when Hematocrit is >60 mg/dl,the test may not accurately detect significant hypoglycemia,and testing in the Laboratory should be considered if clinically indicated. Blood 09/26/2024 12:0 1 AM [employer] 09/26/2024 12:01 AM [employer] Arnulfo Jordan MD LAB POCT ORDERABLES - DEVIC E Final Result Performing Organization Address [facility] de Phone Number [facility] [address] [facility] [employer] [place] [address] * POCT glucose (09/25/2024 8:35 PM [employer]) Glucose, POC 92 70 - 199 mg/dL Comment: For Glucose values <35 mg/dl when Hematocrit is >60 mg/dl,the test may not accurately detect significant hypoglycemia,and testing in the Laboratory should be considered if clinically indicated. Blood 09/25/2024 8:35 PM [employer] 09/25/2024 8:35 PM [employer] Arnulfo Jordan MD LAB POCT ORDERABLES - DEVIC E Final Result Performing Organization Address [facility] Co de Phone Number [facility] [address] [facility] [employer] [place] [address] * POCT glucose (09/25/2024 4:36 PM [employer]) Glucose, POC 97 70 - 199 mg/dL Comment: For Glucose values <35 mg/dl when Hematocrit is >60 mg/dl,the test may not accurately detect significant hypoglycemia,and testing in the Laboratory should be considered if clinically indicated. Blood 09/25/2024 4:36 PM [employer] 09/25/2024 4:36 PM [employer] Arnulfo Jordan MD LAB POCT ORDERABLES - DEVIC E Final Result Performing Organization Address [facility] de Phone Number [facility] [address] Department [place] [address] * POCT glucose (09/25/2024 11:55 AM N[employer]) [facility] Glucose, POC 87 70 - 199 mg/dL Comment: For Glucose values <35 mg/dl when Hematocrit is >60 mg/dl,the test may not accurately detect significant hypoglycemia,and testing in the Laboratory should be considered if clinically indicated. Blood 09/25/2024 11:5 5 AM [employer] 09/25/2024 11:55 AM [employer] Arnulfo Jordan MD LAB POCT ORDERABLES - DEVIC E Final Result Performing Organization Address [facility] de Phone Number [facility] [address] Department [place] [employer] [place] [address] * (ABNORMAL) eGFR (09/25/2024 8:32 AM [employer]) [facility] eGFR 53(L) >=60 mL/min/1. 73 m2 [...] last reviewed 2021. Blood 09/25/2024 8:32 AM [employer] 09/25/2024 8:46 AM [employer] us Arnulfo Jordan MD LAB BLOOD ORDERABLES Final Result [facility] [address] Department [place] [address] * (ABNORMAL) Differential, auto (09/25/2024 8:32 AM [employer]) Neutrophil abs 7.2(H) 1.5 - 6.5 K/cumm Imm gran abs 0.1 0.0 - 0.1 K/cumm [facility] Lymphocyte abs 1.1 0.8 - 3.3 K/cumm [facility] Monocyte abs 0.7 0.2 - 0.8 K/cumm [facility] Eosinophil abs 0.2 0.0 - 0.5 K/cumm [facility] Basophil abs 0.1 0.0 - 0.1 K/cumm [facility] Neutrophil pct 78.5 % [facility] Comment: Interpretive Data Percent cell count reference ranges are not reported, since discordance with absolute values may lead to misinterpretation of CBC data. Current Interpretive Data was last revised on 2017. Imm gran pct 0.5 % [facility] Comment: Interpretive Data Percent cell count reference ranges are not reported, since discordance with absolute values may lead to misinterpretation of CBC data. Current Interpretive Data was last revised on 2017. Lymphocyte pct 11.6 % [facility] Comment: Interpretive Data Percent cell count reference ranges are not reported, since discordance with absolute values may lead to misinterpretation of CBC data. Current Interpretive Data was last revised on 2017. Monocyte pct 7.3 % [facility] Comment: Interpretive Data Percent cell count reference ranges are not reported, since discordance with absolute values may lead to misinterpretation of CBC data. Current Interpretive Data was last revised on 2017. Eosinophil pct 1.6 % [facility] Comment: Interpretive Data Percent cell count reference ranges are not reported, since discordance with absolute values may lead to misinterpretation of CBC data. Current Interpretive Data was last revised on 2017. Basophil pct 0.5 % [facility] Comment: Interpretive Data Percent cell count reference ranges are not reported, since discordance with absolute values may lead to misinterpretation of CBC data. Current Interpretive Data was last revised on 2017. Blood 09/25/2024 8:32 AM [employer] 09/25/2024 8:46 AM [employer] Arnulfo Jordan MD LAB BLOOD ORDERABLES Final Result Performing Organization Address [facility] Co de Phone Number [facility] [address] [employer] [place], [place] [id number] * POCT glucose (09/25/2024 8:32 AM NUC[employer]) [facility] Glucose, POC 89 70 - 199 mg/dL Comment: For Glucose values <35 mg/dl when Hematocrit is >60 mg/dl,the test may not accurately detect significant hypoglycemia,and testing in the Laboratory should be considered if clinically indicated. Blood 09/25/2024 8:32 AM [employer] 09/25/2024 8:32 AM [employer] Arnulfo Jordan MD LAB POCT ORDERABLES - DEVIC E Final Result Performing Organization Address City/[facility]/ZIP Co de Phone Number [facility] [address] Department [employer] [place], [place] [id number] * (ABNORMAL) CBC with auto differential (09/25/2024 8:32 AM NUC[employer]) [facility] WBC 9.2 3.8 - 9.9 K/cumm Hgb 7.2(L) 11.9 - 15.5 g/dL [facility] Hct 24.6(L) 35.6 - 45.5 % [facility] Plt 259 150 - 400 K/cumm [facility] MPV 11.7 9.1 - 12.3 fL [facility] RBC 2.49(L) 3.90 - 5.20 M/cumm [facility] MCV 98.8(H) 81.3 - 96.4 fL [facility] MCH 28.9 27.1 - 33.3 pg [facility] MCHC 29.3(L) 32.3 - 35.7 g/dL [facility] RDW CV 15.8(H) 11.1 - 14.9 % [facility] RDW SD 55.9(H) 35.7 - 48.1 fL [facility] NRBC abs 0.00 0.00 - 0.01 K/cumm [facility] Blood 09/25/2024 8:32 AM [employer] 09/25/2024 8:46 AM [employer] Arnulfo Jordan MD LAB BLOOD ORDERABLES Final Result [facility] [address] Department [place] [address] * (ABNORMAL) Comprehensive metabolic panel (09/25/2024 8:32 AM NUC[employer]) Sodium 143 135 - 145 mmol/L Potassium, pl 3.2(L) 3.3 - 4.9 mmol/L [facility] Chloride 111(H) 97 - 110 mmol/L [facility] CO2 20(L) 22 - 32 mmol/L [facility] Anion gap 12 2 - 15 mmol/L [facility] BUN 26(H) 6 - 25 mg/dL [facility] Creatinine 1.24(H) 0.60 - 1.10 mg/dL [facility] Glucose 85 70 - 199 mg/dL [facility] Comment: Interpretive Data Fasting glucose >/= 126 [...] 2022. Calcium 7.7(L) 8.5 - 10.3 mg/dL [facility] Bilirubin, total 0.2 0.1 - 1.2 mg/dL [facility] Protein, pl 5.8(L) 6.5 - 8.5 g/dL [facility] Albumin 1.9(L) 3.5 - 5.0 g/dL [facility] Alk phos 137(H) 40 - 130 Units/L [facility] ALT 13 7 - 45 Units/L [facility] AST 28 10 - 45 Units/L [facility] Blood 09/25/2024 8:32 AM NUC[employer] 09/25/2024 8:46 AM [employer] Arnulfo Jordan MD LAB BLOOD ORDERABLES Final Result Performing Organization Address City/[facility]/ZIP Co de Phone Number [facility] [address] [place] [employer] [place] [address] * POCT glucose (09/25/2024 4:49 AM NUCLE[employer]CH[employer]IC) [facility] Glucose, POC 86 70 - 199 mg/dL Comment: For Glucose values <35 mg/dl when Hematocrit is >60 mg/dl,the test may not accurately detect significant hypoglycemia,and testing in the Laboratory should be considered if clinically indicated. Blood 09/25/2024 4:49 AM NUC[employer]IC 09/25/2024 4:49 AM NUCLE[employer]OWER[employer]CH[employer]IC us Arnulfo Jordan MD LAB POCT ORDERABLES - DEVIC E Final Result Performing Organization Address City/[facility]/ZIP Co de Phone Number [facility] [address] Department [employer] [place], [place] [id number] * POCT glucose (09/25/2024 12:48 AM NUCLE[employer]CH[employer]IC) Glucose, POC 83 70 - 199 mg/dL Comment: For Glucose values <35 mg/dl when Hematocrit is >60 mg/dl,the test may not accurately detect significant hypoglycemia,and testing in the Laboratory should be considered if clinically indicated. Blood 09/25/2024 12:4 8 AM NUC[employer]CH[employer]IC 09/25/2024 12:48 AM NUCLEAR [employer]OWER[employer] MECHANIC Result [facility] Arnulfo Jodran MD LAB POCT ORDERABLES - DEVIC E Final Result Performing Organization Address [facility] Co de Phone Number [facility] [address] [facility] [employer] [place] [address] * POCT glucose (09/24/2024 8:56 PM NUCLE[employer]CH[employer]IC) Glucose, POC 83 70 - 199 mg/dL Comment: For Glucose values <35 mg/dl when Hematocrit is >60 mg/dl,the test may not accurately detect significant hypoglycemia,and testing in the Laboratory should be considered if clinically indicated. Blood 09/24/2024 8:56 PM NUCLE[employer]CH[employer]IC 09/24/2024 8:56 PM NUCLE[employer]OWER[employer] MECH[employer]IC Result [facility] Arnulfo Jordan MD LAB POCT ORDERABLES - DEVIC E Final Result Performing Organization Address City/[facility] Co de Phone [facility] [address] Department [employer] [place] [address] * POCT glucose (09/24/2024 4:20 PM NUCLE[employer]CH[employer]IC) Glucose, POC 83 70 - 199 mg/dL Comment: For Glucose values <35 mg/dl when Hematocrit is >60 mg/dl,the test may not accurately detect significant hypoglycemia,and testing in the Laboratory should be considered if clinically indicated. Blood 09/24/2024 4:20 PM NUC[employer]CH[employer]IC 09/24/2024 4:20 PM NUC[employer]OWER[employer] MECH[employer]IC us Arnulfo Jordan MD LAB POCT ORDERABLES - DEVIC E Final Result Performing Organization Address [facility] Co de Phone Number [facility] [address] [facility] [place] [address] * POCT glucose (09/24/2024 12:13 PM NUCLEAR [employer] MECH[employer]IC) Glucose, POC 91 70 - 199 mg/dL Comment: For Glucose values <35 mg/dl when Hematocrit is >60 mg/dl,the test may not accurately detect significant hypoglycemia,and testing in the Laboratory should be considered if clinically indicated. Blood 09/24/2024 12:1 3 PM NUC[employer]CH[employer]IC 09/24/2024 12:13 PM [employer]UC[employer]IC Arnulfo Jordan MD LAB POCT ORDERABLES - DEVIC E Final Result Performing Organization Address [facility] Co de Phone Number [facility] [address] Department [place] [address] * XR Chest 1 View (09/24/2024 8:18 AM NUCLEAR [employer]IC) Anatomical Region Laterality Modality Body, Chest N/A Computed Radiogr aphy 09/24/2024 8:36 AM NUCLE[employer]IC Impressions 09/24/2024 8:36 AM [employer]UC[employer]IC Patchy airspace opacities greatest in the left lung base but also projecting over the left hilum and to a lesser extent the right hilum are not substantially changed and likely representing multifocal pneumonia and/or sequela of aspiration. Trace left pleural effusion. No right pleural effusion. No pneumothorax. Heart size is stable. Electronically signed by: Nithin Gonzalez MD, PHD Narrative 09/24/2024 8:36 AM NUCLEAR POWERPLANT MECHANIC EXAMINATION: XR CHEST 1 VIEW HISTORY: Shortness [...] Electronically signed by: Nithin Gonzalez MD, PHD Flo Villagran MD IMG XR PROCEDURES Final Resu lt * POCT glucose (09/24/2024 4:12 AM NUCLEAR POWERPLANT MECHANIC) Glucose, POC 129 70 - 199 mg/dL Comment: For Glucose values <35 mg/dl when Hematocrit is >60 mg/dl,the test may not accurately detect significant hypoglycemia,and testing in the Laboratory should be considered if clinically indicated. Blood 09/24/2024 4:12 AM NUCLEAR POWERPLANT MECHANIC 09/24/2024 4:12 AM NUCLEAR POWERPLANT MECHANIC Result [facility] Arnulfo Jordan MD LAB POCT ORDERABLES - DEVIC E Final Result Performing Organization Address [facility] Co de Phone Number [facility] [address] [place] [employer] [address] * POCT glucose (09/24/2024 2:44 AM NUCLEAR POWERPLANT MECHANIC) [facility] Glucose, POC 132 70 - 199 mg/dL Comment: For Glucose values <35 mg/dl when Hematocrit is >60 mg/dl,the test may not accurately detect significant hypoglycemia,and testing in the Laboratory should be considered if clinically indicated. Blood 09/24/2024 2:44 AM NUCLEAR POWERPLANT MECHANIC 09/24/2024 2:44 AM NUCLEAR POWERPLANT MECHANIC Result [facility] Arnulfo Jordan MD LAB POCT ORDERABLES - DEVIC E Final Result Performing Organization Address City/[facility] Co de Phone Number [facility] [address] Department [place] [employer] [place] [address] * (ABNORMAL) POCT glucose (09/24/2024 1:06 AM NUCLEAR POWERPLANT MECHANIC) Glucose, POC 59(L) 70 - 199 mg/dL Comment: For Glucose values <35 mg/dl when Hematocrit is >60 mg/dl,the test may not accurately detect significant hypoglycemia,and testing in the Laboratory should be considered if clinically indicated. Blood 09/24/2024 1:06 AM NUCLEAR POWERPLANT MECHANIC 09/24/2024 1:06 AM NUCLEAR POWERPLANT MECHANIC Arnulfo Jordan MD LAB POCT ORDERABLES - DEVIC E Final Result Performing Organization Address [facility] de Phone Number [facility] [address] [place] [address] * (ABNORMAL) POCT glucose (09/24/2024 12:44 AM NUCLEAR POWERPLANT MECHANIC) Glucose, POC 65(L) 70 - 199 mg/dL Comment: For Glucose values <35 mg/dl when Hematocrit is >60 mg/dl,the test may not accurately detect significant hypoglycemia,and testing in the Laboratory should be considered if clinically indicated. Blood 09/24/2024 12:4 4 AM NUCLEAR POWERPLANT MECHANIC 09/24/2024 12:44 AM NUCLEAR POWERPLANT MECHANIC Result [facility] Arnulfo Jordan MD LAB POCT ORDERABLES - DEVIC E Final Result Performing Organization Address [facility] de Phone Number [facility] [address] [employer] [address] * (ABNORMAL) POCT glucose (09/24/2024 12:22 AM NUCLEAR POWERPLANT MECHANIC) Glucose, POC 68(L) 70 - 199 mg/dL Comment: For Glucose values <35 mg/dl when Hematocrit is >60 mg/dl,the test may not accurately detect significant hypoglycemia,and testing in the Laboratory should be considered if clinically indicated. Blood 09/24/2024 12:2 2 AM NUCLEAR POWERPLANT MECHANIC 09/24/2024 12:22 AM NUCLEAR POWERPLANT MECHANIC Result [facility] Arnulfo Jordan MD LAB POCT ORDERABLES - DEVIC E Final Result Performing Organization Address [facility] Co de Phone Number [facility] [address] [facility] [employer] [address] * POCT glucose (09/23/2024 9:34 PM NUCLEAR POWERPLANT MECHANIC) Glucose, POC 80 70 - 199 mg/dL Comment: For Glucose values <35 mg/dl when Hematocrit is >60 mg/dl,the test may not accurately detect significant hypoglycemia,and testing in the Laboratory should be considered if clinically indicated. Blood 09/23/2024 9:34 PM NUCLEAR POWERPLANT MECHANIC 09/23/2024 9:34 PM NUCLEAR POWERPLANT MECHANIC Guillermo Nair LAB POCT ORDERABLES - DE VICE Final Result Performing Organization Address [facility] Co de Phone Number [facility] [address] [facility] [employer] [address] * POCT glucose (09/23/2024 4:10 PM NUCLEAR POWERPLANT MECHANIC) Glucose, POC 121 70 - 199 mg/dL Comment: For Glucose values <35 mg/dl when Hematocrit is >60 mg/dl,the test may not accurately detect significant hypoglycemia,and testing in the Laboratory should be considered if clinically indicated. Blood 09/23/2024 4:10 PM NUCLEAR POWERPLANT MECHANIC 09/23/2024 4:10 PM NUCLEAR POWERPLANT MECHANIC us Guillermo Nair LAB POCT ORDERABLES - DE VICE Final Result Performing Organization Address [facility] Co de Phone Number [facility] [address] [facility] [place] [employer] [address] * POCT glucose (09/23/2024 1:10 PM NUCLEAR POWERPLANT MECHANIC) Glucose, POC 115 70 - 199 mg/dL Comment: For Glucose values <35 mg/dl when Hematocrit is >60 mg/dl,the test may not accurately detect significant hypoglycemia,and testing in the Laboratory should be considered if clinically indicated. Blood 09/23/2024 1:10 PM NUCLEAR POWERPLANT MECHANIC 09/23/2024 1:10 PM NUCLEAR POWERPLANT MECHANIC Flo Villagran MD LAB POCT ORDERABLES - DEVICE Final Result Performing Organization Address [facility] Co de Phone Number [facility] [address] [place] [employer] [address] * POCT glucose (09/23/2024 12:18 PM NUCLEAR POWERPLANT MECHANIC) Glucose, POC 83 70 - 199 mg/dL Comment: For Glucose values <35 mg/dl when Hematocrit is >60 mg/dl,the test may not accurately detect significant hypoglycemia,and testing in the Laboratory should be considered if clinically indicated. Blood 09/23/2024 12:1 8 PM NUCLEAR POWERPLANT MECHANIC 09/23/2024 12:18 PM NUCLEAR POWERPLANT MECHANIC Flo Villagran MD LAB POCT ORDERABLES - DEVICE Final Result Performing Organization Address [facility] Co de Phone Number [facility] [address] [facility] [employer] [address] * (ABNORMAL) POCT glucose (09/23/2024 11:55 AM NUCLEAR POWERPLANT MECHANIC) Glucose, POC 69(L) 70 - 199 mg/dL Comment: For Glucose values <35 mg/dl when Hematocrit is >60 mg/dl,the test may not accurately detect significant hypoglycemia,and testing in the Laboratory should be considered if clinically indicated. Blood 09/23/2024 11:5 5 AM NUCLEAR POWERPLANT MECHANIC 09/23/2024 11:55 AM NUCLEAR POWERPLANT MECHANIC Flo Villagran MD LAB POCT ORDERABLES - DEVICE Final Result Performing Organization Address [facility] Co de Phone Number [facility] [address] [facility] [employer] [place] [address] * (ABNORMAL) POCT glucose (09/23/2024 11:54 AM NUCLEAR POWERPLANT MECHANIC) Glucose, POC 63(L) 70 - 199 mg/dL Comment: For Glucose values <35 mg/dl when Hematocrit is >60 mg/dl,the test may not accurately detect significant hypoglycemia,and testing in the Laboratory should be considered if clinically indicated. Blood 09/23/2024 11:5 4 AM NUCLEAR POWERPLANT MECHANIC 09/23/2024 11:54 AM NUCLEAR POWERPLANT MECHANIC Flo Villagran MD LAB POCT ORDERABLES - DEVICE Final Result Performing Organization Address [facility] de Phone Number [facility] [address] [facility] [employer] [place] [address] * POCT glucose (09/23/2024 7:47 AM NUCLEAR POWERPLANT MECHANIC) Glucose, POC 71 70 - 199 mg/dL Comment: For Glucose values <35 mg/dl when Hematocrit is >60 mg/dl,the test may not accurately detect significant hypoglycemia,and testing in the Laboratory should be considered if clinically indicated. Blood 09/23/2024 7:47 AM NUCLEAR POWERPLANT MECHANIC 09/23/2024 7:47 AM NUCLEAR POWERPLANT MECHANIC Flo Villagran MD LAB POCT ORDERABLES - DEVICE Final Result Performing Organization Address [facility] de Phone Number [facility] [address] Department [place] [employer] [place] [address] * POCT glucose (09/23/2024 3:27 AM NUCLEAR POWERPLANT MECHANIC) Glucose, POC 92 70 - 199 mg/dL Comment: For Glucose values <35 mg/dl when Hematocrit is >60 mg/dl,the test may not accurately detect significant hypoglycemia,and testing in the Laboratory should be considered if clinically indicated. Blood 09/23/2024 3:27 AM NUCLEAR POWERPLANT MECHANIC 09/23/2024 3:27 AM NUCLEAR POWERPLANT MECHANIC Flo Villagran MD LAB POCT ORDERABLES - DEVICE Final Result Performing Organization Address [facility] de Phone Number [facility] [address] [facility] [place] [employer] [address] * POCT glucose (09/23/2024 1:13 AM NUCLEAR POWERPLANT MECHANIC) Glucose, POC 113 70 - 199 mg/dL Comment: For Glucose values <35 mg/dl when Hematocrit is >60 mg/dl,the test may not accurately detect significant hypoglycemia,and testing in the Laboratory should be considered if clinically indicated. Blood 09/23/2024 1:13 AM NUCLEAR POWERPLANT MECHANIC 09/23/2024 1:13 AM NUCLEAR POWERPLANT MECHANIC Flo Villagran MD LAB POCT ORDERABLES - DEVICE Final Result Performing Organization Address [facility] de Phone Number [facility] [address] [facility] [place] [employer] [place] [address] * POCT glucose (09/23/2024 12:17 AM NUCLEAR POWERPLANT MECHANIC) Glucose, POC 195 70 - 199 mg/dL Comment: For Glucose values <35 mg/dl when Hematocrit is >60 mg/dl,the test may not accurately detect significant hypoglycemia,and testing in the Laboratory should be considered if clinically indicated. Blood 09/23/2024 12:1 7 AM NUCLEAR POWERPLANT MECHANIC 09/23/2024 12:17 AM NUCLEAR POWERPLANT MECHANIC Flo Villagran MD LAB POCT ORDERABLES - DEVICE Final Result Performing Organization Address [facility] de Phone Number [facility] [address] [facility] [place] [employer] [place] [address] * (ABNORMAL) POCT glucose (09/22/2024 11:54 PM NUCLEAR POWERPLANT MECHANIC) Glucose, POC 63(L) 70 - 199 mg/dL Comment: For Glucose values <35 mg/dl when Hematocrit is >60 mg/dl,the test may not accurately detect significant hypoglycemia,and testing in the Laboratory should be considered if clinically indicated. Blood 09/22/2024 11:5 4 PM NUCLEAR POWERPLANT MECHANIC 09/22/2024 11:54 PM NUCLEAR POWERPLANT MECHANIC Flo Villagran MD LAB POCT ORDERABLES - DEVICE Final Result Performing Organization Address [facility] Co de Phone Number [facility] [address] [facility] [employer] [place] [address] * (ABNORMAL) Blood gas, arterial (09/22/2024 8:33 PM NUCLEAR POWERPLANT MECHANIC) pH, Art 7.44 7.35 - 7.45 PCO2, Arterial 37 35 - 45 mmHg [facility] PO2, Arterial 81(L) 83 - 108 mmHg [facility] HCO3 Art (Calculated) 25 20 - 30 mmol/L [facility] BE, art 1 mmol/L [facility] Comment: Interpretive Data No Reference Range Established Current Interpretive Data was last revised on 2017 O2 Sat Art (Calculated) 96 94 - 98 % [facility] Blood 09/22/2024 8:33 PM NUCLEAR POWERPLANT MECHANIC 09/22/2024 8:36 PM NUCLEAR POWERPLANT MECHANIC Chad Veras MD LAB BLOOD ORDERABLES Final R esult Performing Organization Address [facility] Co de Phone Number [facility] [address] [facility] [employer] [place] [address] * POCT glucose (09/22/2024 7:46 PM NUCLEAR POWERPLANT MECHANIC) Glucose, POC 95 70 - 199 mg/dL Comment: For Glucose values <35 mg/dl when Hematocrit is >60 mg/dl,the test may not accurately detect significant hypoglycemia,and testing in the Laboratory should be considered if clinically indicated. Blood 09/22/2024 7:46 PM NUCLEAR POWERPLANT MECHANIC 09/22/2024 7:46 PM NUCLEAR POWERPLANT MECHANIC Flo Villagran MD LAB POCT ORDERABLES - DEVICE Final Result Performing Organization Address City/[facility] Co de Phone Number [facility] [address] [facility] [employer] [place] [address] * POCT glucose (09/22/2024 4:04 PM NUCLEAR POWERPLANT MECHANIC) Glucose, POC 166 70 - 199 mg/dL Comment: For Glucose values <35 mg/dl when Hematocrit is >60 mg/dl,the test may not accurately detect significant hypoglycemia,and testing in the Laboratory should be considered if clinically indicated. Blood 09/22/2024 4:04 PM NUCLEAR POWERPLANT MECHANIC 09/22/2024 4:04 PM NUCLEAR POWERPLANT MECHANIC Flo Villagran MD LAB POCT ORDERABLES - DEVICE Final Result Performing Organization Address [facility] Co de Phone Number [facility] [address] [facility] [place] [employer] [place] [address] * POCT glucose (09/22/2024 11:51 AM NUCLEAR POWERPLANT MECHANIC) Glucose, POC 187 70 - 199 mg/dL Comment: For Glucose values <35 mg/dl when Hematocrit is >60 mg/dl,the test may not accurately detect significant hypoglycemia,and testing in the Laboratory should be considered if clinically indicated. Blood 09/22/2024 11:5 1 AM NUCLEAR POWERPLANT MECHANIC 09/22/2024 11:51 AM NUCLEAR POWERPLANT MECHANIC Flo Villagran MD LAB POCT ORDERABLES - DEVICE Final Result Performing Organization Address [facility] Co de Phone Number [facility] [address] [facility] [employer] [place] [address] * (ABNORMAL) POCT glucose (09/22/2024 8:42 AM NUCLEAR POWERPLANT MECHANIC) Glucose, POC 210(H) 70 - 199 mg/dL Comment: For Glucose values <35 mg/dl when Hematocrit is >60 mg/dl,the test may not accurately detect significant hypoglycemia,and testing in the Laboratory should be considered if clinically indicated. Blood 09/22/2024 8:42 AM NUCLEAR POWERPLANT MECHANIC 09/22/2024 8:42 AM NUCLEAR POWERPLANT MECHANIC Flo Villagran MD LAB POCT ORDERABLES - DEVICE Final Result Performing Organization Address [facility] Co de Phone Number [facility] [address] [facility] [place] [address] * POCT glucose (09/22/2024 4:05 AM NUCLEAR POWERPLANT MECHANIC) [facility] Glucose, POC 199 70 - 199 mg/dL Comment: For Glucose values <35 mg/dl when Hematocrit is >60 mg/dl,the test may not accurately detect significant hypoglycemia,and testing in the Laboratory should be considered if clinically indicated. Blood 09/22/2024 4:05 AM NUCLEAR POWERPLANT MECHANIC 09/22/2024 4:05 AM NUCLEAR POWERPLANT MECHANIC Flo Villagran MD LAB POCT ORDERABLES - DEVICE Final Result Performing Organization Address [facility] de Phone Number [facility] [address] Department [place] [address] * XR Chest 1 View (09/22/2024 3:59 AM NUCLEAR POWERPLANT MECHANIC) Anatomical Region Laterality Modality Body, Chest N/A Computed Radiogr aphy 09/22/2024 9:18 AM NUCLEAR POWERPLANT MECHANIC Impressions 09/22/2024 9:18 AM NUCLEAR POWERPLANT MECHANIC The current study is compared with the [...] Blair Lopez M.D. Narrative 09/22/2024 9:18 AM NUCLEAR POWERPLANT MECHANIC EXAMINATION: XR CHEST 1 VIEW Procedure Note [...] . Electronically signed by: Blair Lopez M.D. Flo Villagran MD IMG XR PROCEDURES Final Resu lt * (ABNORMAL) eGFR (09/22/2024 2:24 AM NUCLEAR POWERPLANT MECHANIC) eGFR 53(L) >=60 mL/min/1. 73 m2 Comment: [...] last reviewed 2021. Blood 09/22/2024 2:24 AM NUCLEAR POWERPLANT MECHANIC 09/22/2024 2:55 AM NUCLEAR POWERPLANT MECHANIC Flo Villagran MD LAB BLOOD ORDERABLES Final R esult [facility] [address] Department [place] [address] * (ABNORMAL) CBC without differential (09/22/2024 2:24 AM NUCLEAR POWERPLANT MECHANIC) WBC 15.1(H) 3.8 - 9.9 K/cumm Hgb 7.5(L) 11.9 - 15.5 g/dL [facility] Hct 23.4(L) 35.6 - 45.5 % [facility] Plt 248 150 - 400 K/cumm [facility] MPV 12.5(H) 9.1 - 12.3 fL [facility] RBC 2.55(L) 3.90 - 5.20 M/cumm [facility] MCV 91.8 81.3 - 96.4 fL [facility] MCH 29.4 27.1 - 33.3 pg [facility] MCHC 32.1(L) 32.3 - 35.7 g/dL [facility] RDW CV 15.2(H) 11.1 - 14.9 % [facility] RDW SD 50.1(H) 35.7 - 48.1 fL [facility] NRBC abs 0.00 0.00 - 0.01 K/cumm [facility] Blood 09/22/2024 2:24 AM NUCLEAR POWERPLANT MECHANIC 09/22/2024 2:40 AM NUCLEAR POWERPLANT MECHANIC Flo Villagran MD LAB BLOOD ORDERABLES Final R esult Performing Organization Address City/[facility] Co de Phone Number [facility] [address] Department [place] [address] * Magnesium (09/22/2024 2:24 AM NUCLEAR POWERPLANT MECHANIC) Pathologist [facility] Magnesium 2.0 1.4 - 2.5 mg/dL Blood 09/22/2024 2:24 AM NUCLEAR POWERPLANT MECHANIC 09/22/2024 2:55 AM NUCLEAR POWERPLANT MECHANIC Flo Villagran MD LAB BLOOD ORDERABLES Final R esult Performing Organization Address City/[facility]/ZIP Co de Phone Number [facility] [address] Department [place] [address] * (ABNORMAL) Renal function panel (09/22/2024 2:24 AM NUCLEAR POWERPLANT MECHANIC) [facility] Sodium 140 135 - 145 mmol/L Potassium, pl 3.4 3.3 - 4.9 mmol/L [facility] Chloride 108 97 - 110 mmol/L [facility] CO2 20(L) 22 - 32 mmol/L [facility] Anion gap 12 2 - 15 mmol/L [facility] BUN 31(H) 6 - 25 mg/dL [facility] Creatinine 1.25(H) 0.60 - 1.10 mg/dL [facility] Glucose 189 70 - 199 mg/dL [facility] Comment: Interpretive Data Fasting glucose >/= 126 [...] 2022. Calcium 7.5(L) 8.5 - 10.3 mg/dL [facility] Phosphorus, pl 3.6 2.3 - 4.5 mg/dL [facility] Albumin 2.1(L) 3.5 - 5.0 g/dL [facility] Blood 09/22/2024 2:24 AM NUCLEAR POWERPLANT MECHANIC 09/22/2024 2:55 AM NUCLEAR POWERPLANT MECHANIC us Flo Villagran MD LAB BLOOD ORDERABLES Final R esult [facility] [address] Department [place] [address] * POCT glucose (09/21/2024 11:58 PM NUCLEAR POWERPLANT MECHANIC) [facility] Glucose, POC 177 70 - 199 mg/dL Comment: For Glucose values <35 mg/dl when Hematocrit is >60 mg/dl,the test may not accurately detect significant hypoglycemia,and testing in the Laboratory should be considered if clinically indicated. Blood 09/21/2024 11:5 8 PM NUCLEAR POWERPLANT MECHANIC 09/21/2024 11:58 PM NUCLEAR POWERPLANT MECHANIC Flo Villagran MD LAB POCT ORDERABLES - DEVICE Final Result Performing Organization Address [facility] Co de Phone Number [facility] [address] [facility] [employer] [address] * POCT glucose (09/21/2024 7:01 PM NUCLEAR POWERPLANT MECHANIC) Glucose, POC 134 70 - 199 mg/dL Comment: For Glucose values <35 mg/dl when Hematocrit is >60 mg/dl,the test may not accurately detect significant hypoglycemia,and testing in the Laboratory should be considered if clinically indicated. Blood 09/21/2024 7:01 PM NUCLEAR POWERPLANT MECHANIC 09/21/2024 7:01 PM NUCLEAR POWERPLANT MECHANIC Flo Villagran MD LAB POCT ORDERABLES - DEVICE Final Result Performing Organization Address [facility] de Phone Number [facility] [address] [place] [address] * POCT glucose (09/21/2024 3:10 PM NUCLEAR POWERPLANT MECHANIC) Glucose, POC 140 70 - 199 mg/dL Comment: For Glucose values <35 mg/dl when Hematocrit is >60 mg/dl,the test may not accurately detect significant hypoglycemia,and testing in the Laboratory should be considered if clinically indicated. Blood 09/21/2024 3:10 PM NUCLEAR POWERPLANT MECHANIC 09/21/2024 3:10 PM NUCLEAR POWERPLANT MECHANIC Flo Villagran MD LAB POCT ORDERABLES - DEVICE Final Result Performing Organization Address [facility] de Phone Number [facility] [address] [place] [address] * Potassium (09/21/2024 2:07 PM NUCLEAR POWERPLANT MECHANIC) Potassium, pl 3.9 3.3 - 4.9 mmol/L Blood 09/21/2024 2:07 PM NUCLEAR POWERPLANT MECHANIC 09/21/2024 2:07 PM NUCLEAR POWERPLANT MECHANIC Flo Villagran MD LAB BLOOD ORDERABLES Final R esult Performing Organization Address [facility] Co de Phone Number [facility] [address] [place] [address] * (ABNORMAL) POCT glucose (09/21/2024 11:30 AM NUCLEAR POWERPLANT MECHANIC) Pathologist [facility] Glucose, POC 200(H) 70 - 199 mg/dL Comment: For Glucose values <35 mg/dl when Hematocrit is >60 mg/dl,the test may not accurately detect significant hypoglycemia,and testing in the Laboratory should be considered if clinically indicated. Blood 09/21/2024 11:3 0 AM NUCLEAR POWERPLANT MECHANIC 09/21/2024 11:30 AM NUCLEAR POWERPLANT MECHANIC Flo Villagran MD LAB POCT ORDERABLES - DEVICE Final Result Performing Organization Address [facility] de Phone Number [facility] [address] [place] [address] * (ABNORMAL) POCT glucose (09/21/2024 7:19 AM NUCLEAR POWERPLANT MECHANIC) Glucose, POC 230(H) 70 - 199 mg/dL Comment: For Glucose values <35 mg/dl when Hematocrit is >60 mg/dl,the test may not accurately detect significant hypoglycemia,and testing in the Laboratory should be considered if clinically indicated. Blood 09/21/2024 7:19 AM NUCLEAR POWERPLANT MECHANIC 09/21/2024 7:19 AM NUCLEAR POWERPLANT MECHANIC Flo Villagran MD LAB POCT ORDERABLES - DEVICE Final Result [facility] [address] Department [place] [address] * XR Chest 1 View (09/21/2024 4:44 AM NUCLEAR POWERPLANT MECHANIC) Anatomical Region Laterality Modality Body, Chest N/A Computed Radiogr aphy 09/21/2024 7:37 AM NUCLEAR POWERPLANT MECHANIC Impressions 09/21/2024 7:37 AM NUCLEAR POWERPLANT MECHANIC Comparison is made to 2024. Endotracheal tube 2.7 cm above the jessenia. Nasogastric tube tip located with diaphragm, not included [id number]. There is slightly improved aeration within the left retrocardiac location likely representing improving aspiration/pneumonia. There is mild right basilar atelectasis. No pleural effusion or pneumothorax. Stable heart size. Electronically signed by: Ruiz Coles M.D. Narrative 09/21/2024 7:37 AM NUCLEAR POWERPLANT MECHANIC Examination: Chest 1 view Procedure Note Ruiz Coles MD - 09/21/2024 Examination: Chest 1 view IMPRESSION: Comparison is made to 2024. Endotracheal tube 2.7 cm above the jessenia. Nasogastric tube tip located with diaphragm, not included [id number]. There is slightly improved aeration within the left retrocardiac location likely representing improving aspiration/pneumonia. There is mild right basilar atelectasis. No pleural effusion or pneumothorax. Stable heart size. Electronically signed by: Ruiz Coles M.D. Flo Villagran MD IMG XR PROCEDURES Final Resu lt * (ABNORMAL) POCT glucose (09/21/2024 3:47 AM NUCLEAR POWERPLANT MECHANIC) Glucose, POC 235(H) 70 - 199 mg/dL Comment: For Glucose values <35 mg/dl when Hematocrit is >60 mg/dl,the test may not accurately detect significant hypoglycemia,and testing in the Laboratory should be considered if clinically indicated. Blood 09/21/2024 3:47 AM NUCLEAR POWERPLANT MECHANIC 09/21/2024 3:47 AM NUCLEAR POWERPLANT MECHANIC Flo Villagran MD LAB POCT ORDERABLES - DEVICE Final Result Performing Organization Address [facility] Co de Phone Number [facility] [address] Department [employer] [place], [place] [phone] * (ABNORMAL) eGFR (09/21/2024 1:48 AM NUCLEAR POWERPLANT MECHANIC) eGFR 50(L) >=60 mL/min/1. 73 m2 Comment: [...] last reviewed 2021. Blood 09/21/2024 1:48 AM NUCLEAR POWERPLANT MECHANIC 09/21/2024 2:06 AM NUCLEAR POWERPLANT MECHANIC Flo Villagran MD LAB BLOOD ORDERABLES Final R esult Performing Organization Address [facility] Co de Phone Number [facility] [address] Department of [employer] [place], [place] [id number] * (ABNORMAL) CBC without differential (09/21/2024 1:48 AM NUCLEAR POWERPLANT MECHANIC) WBC 13.1(H) 3.8 - 9.9 K/cumm Hgb 7.6(L) 11.9 - 15.5 g/dL [facility] Hct 24.6(L) 35.6 - 45.5 % [facility] Plt 229 150 - 400 K/cumm [facility] MPV 12.5(H) 9.1 - 12.3 fL [facility] RBC 2.65(L) 3.90 - 5.20 M/cumm [facility] MCV 92.8 81.3 - 96.4 fL [facility] MCH 28.7 27.1 - 33.3 pg [facility] MCHC 30.9(L) 32.3 - 35.7 g/dL [facility] RDW CV 15.5(H) 11.1 - 14.9 % [facility] RDW SD 51.8(H) 35.7 - 48.1 fL [facility] NRBC abs 0.00 0.00 - 0.01 K/cumm [facility] Blood 09/21/2024 1:48 AM NUCLEAR POWERPLANT MECHANIC 09/21/2024 2:06 AM NUCLEAR POWERPLANT MECHANIC Flo Villagran MD LAB BLOOD ORDERABLES Final R esult Performing Organization Address City/[facility]/ZIP Co de Phone Number [facility] [address] [employer] [place], [place] [phone] * Phosphorus (09/21/2024 1:48 AM NUCLEAR POWERPLANT MECHANIC) Phosphorus, pl 3.2 2.3 - 4.5 mg/dL Blood 09/21/2024 1:48 AM NUCLEAR POWERPLANT MECHANIC 09/21/2024 2:06 AM NUCLEAR POWERPLANT MECHANIC Flo Villagran MD LAB BLOOD ORDERABLES Final R esult [facility] [address] [facility] [employer] [place] [address] * Magnesium (09/21/2024 1:48 AM NUCLEAR POWERPLANT MECHANIC) Magnesium 2.0 1.4 - 2.5 mg/dL Blood 09/21/2024 1:48 AM NUCLEAR POWERPLANT MECHANIC 09/21/2024 2:06 AM NUCLEAR POWERPLANT MECHANIC Flo Villagran MD LAB BLOOD ORDERABLES Final R esult Performing Organization Address City/[facility]/ZIP Co de Phone Number [facility] [address] [employer] [place] [employer] [place] [address] * Bilirubin, direct (09/21/2024 1:48 AM NUCLEAR POWERPLANT MECHANIC) Pathologist [facility] Bilirubin, direct <0.2 0.1 - 0.3 mg/dL Blood 09/21/2024 1:48 AM NUCLEAR POWERPLANT MECHANIC 09/21/2024 2:06 AM NUCLEAR POWERPLANT MECHANIC Flo Villagran MD LAB BLOOD ORDERABLES Final R esult Performing Organization Address [facility] Co de Phone Number [facility] [address] [facility] [employer] [place] [address] * (ABNORMAL) Comprehensive metabolic panel (09/21/2024 1:48 AM NUCLEAR POWERPLANT MECHANIC) Pathologist [facility] Sodium 144 135 - 145 mmol/L Potassium, pl 2.9(L) 3.3 - 4.9 mmol/L [facility] Chloride 112(H) 97 - 110 mmol/L [facility] CO2 19(L) 22 - 32 mmol/L [facility] Anion gap 13 2 - 15 mmol/L [facility] BUN 32(H) 6 - 25 mg/dL [facility] Creatinine 1.31(H) 0.60 - 1.10 mg/dL [facility] Glucose 259(H) 70 - 199 mg/dL [facility] Comment: Interpretive Data Fasting glucose >/= 126 [...] 2022. Calcium 7.4(L) 8.5 - 10.3 mg/dL [facility] Bilirubin, total 0.2 0.1 - 1.2 mg/dL [facility] Protein, pl 5.6(L) 6.5 - 8.5 g/dL [facility] Albumin 2.0(L) 3.5 - 5.0 g/dL [facility] Alk phos 135(H) 40 - 130 Units/L [facility] ALT 16 7 - 45 Units/L [facility] AST 23 10 - 45 Units/L [facility] Blood 09/21/2024 1:48 AM NUCLEAR POWERPLANT MECHANIC 09/21/2024 2:06 AM NUCLEAR POWERPLANT MECHANIC Flo Villagran MD LAB BLOOD ORDERABLES Final R esult Performing Organization Address [facility] Co de Phone Number [facility] [address] Department [employer] [place], [place] [phone] * (ABNORMAL) POCT glucose (09/20/2024 11:54 PM NUCLEAR POWERPLANT MECHANIC) Glucose, POC 264(H) 70 - 199 mg/dL Comment: For Glucose values <35 mg/dl when Hematocrit is >60 mg/dl,the test may not accurately detect significant hypoglycemia,and testing in the Laboratory should be considered if clinically indicated. Blood 09/20/2024 11:5 4 PM NUCLEAR POWERPLANT MECHANIC 09/20/2024 11:54 PM NUCLEAR POWERPLANT MECHANIC Flo Villagran MD LAB POCT ORDERABLES - DEVICE Final Result Performing Organization Address [facility]/ZIP Co de Phone Number [facility] [address] [place] [employer] [place] [address] * (ABNORMAL) POCT glucose (09/20/2024 7:03 PM NUCLEAR POWERPLANT MECHANIC) Glucose, POC 253(H) 70 - 199 mg/dL Comment: For Glucose values <35 mg/dl when Hematocrit is >60 mg/dl,the test may not accurately detect significant hypoglycemia,and testing in the Laboratory should be considered if clinically indicated. Blood 09/20/2024 7:03 PM NUCLEAR POWERPLANT MECHANIC 09/20/2024 7:03 PM NUCLEAR POWERPLANT MECHANIC Flo Villagran MD LAB POCT ORDERABLES - DEVICE Final Result Performing Organization Address [facility] Co de Phone Number [facility] [address] [facility] [employer] [place] [address] * POCT glucose (09/20/2024 3:28 PM NUCLEAR POWERPLANT MECHANIC) Glucose, POC 179 70 - 199 mg/dL Comment: For Glucose values <35 mg/dl when Hematocrit is >60 mg/dl,the test may not accurately detect significant hypoglycemia,and testing in the Laboratory should be considered if clinically indicated. Blood 09/20/2024 3:28 PM NUCLEAR POWERPLANT MECHANIC 09/20/2024 3:28 PM NUCLEAR POWERPLANT MECHANIC Flo Villagran MD LAB POCT ORDERABLES - DEVICE Final Result Performing Organization Address [facility] Co de Phone Number [facility] [address] [facility] [employer] [place] [address] * (ABNORMAL) POCT glucose (09/20/2024 11:48 AM NUCLEAR POWERPLANT MECHANIC) Glucose, POC 213(H) 70 - 199 mg/dL Comment: For Glucose values <35 mg/dl when Hematocrit is >60 mg/dl,the test may not accurately detect significant hypoglycemia,and testing in the Laboratory should be considered if clinically indicated. Blood 09/20/2024 11:4 8 AM NUCLEAR POWERPLANT MECHANIC 09/20/2024 11:48 AM NUCLEAR POWERPLANT MECHANIC Flo Villagran MD LAB POCT ORDERABLES - DEVICE Final Result Performing Organization Address [facility] Co de Phone Number [facility] [address] Department [employer] [place] [address] * (ABNORMAL) Blood gas, arterial (09/20/2024 10:54 AM NUCLEAR POWERPLANT MECHANIC) pH, Art 7.43 7.35 - 7.45 PCO2, Arterial 30(L) 35 - 45 mmHg [facility] PO2, Arterial 82(L) 83 - 108 mmHg [facility] HCO3 Art (Calculated) 20 20 - 30 mmol/L [facility] BE, art -3 mmol/L [facility] Comment: Interpretive Data No Reference Range Established Current Interpretive Data was last revised on 2017 O2 Sat Art (Calculated) 96 94 - 98 % [facility] Blood 09/20/2024 10:5 4 AM NUCLEAR POWERPLANT MECHANIC 09/20/2024 10:57 AM NUCLEAR POWERPLANT MECHANIC us Flo Villagran MD LAB BLOOD ORDERABLES Final R esult [facility] [address] Department [place] [address] * XR Chest 1 View (09/20/2024 9:17 AM NUCLEAR POWERPLANT MECHANIC) Anatomical Region Laterality Modality Body, Chest N/A Computed Radiogr aphy 09/20/2024 10:0 9 AM NUCLEAR POWERPLANT MECHANIC Impressions 09/20/2024 10:09 AM NUCLEAR POWERPLANT MECHANIC Comparison to 09/17/2024. An endotracheal tube terminates approximately 2.5 cm above the jessenia. Endogastric tube coils in the peripyloric region. Bilateral airspace opacities, left greater than right, with mid to lower lung zone predominance has slightly improved. No pleural effusion or pneumothorax. Unchanged heart size. The Electronically signed by: Gibran Astudillo M.D. Narrative 09/20/2024 10:09 AM NUCLEAR POWERPLANT MECHANIC EXAMINATION: 1 view chest radiograph Procedure Note [...] lt * POCT glucose (09/20/2024 7:20 AM NUCLEAR POWERPLANT MECHANIC) Pathologist [facility] Glucose, POC 159 70 - 199 mg/dL Comment: For Glucose values <35 mg/dl when Hematocrit is >60 mg/dl,the test may not accurately detect significant hypoglycemia,and testing in the Laboratory should be considered if clinically indicated. Blood 09/20/2024 7:20 AM NUCLEAR POWERPLANT MECHANIC 09/20/2024 7:20 AM NUCLEAR POWERPLANT MECHANIC us Flo Villagran MD LAB POCT ORDERABLES - DEVICE Final Result Performing Organization Address [facility] Co de Phone Number [facility] [address] [employer] [place], [place] [phone] * POCT glucose (09/20/2024 3:37 AM NUCLEAR POWERPLANT MECHANIC) [facility] Glucose, POC 195 70 - 199 mg/dL Comment: For Glucose values <35 mg/dl when Hematocrit is >60 mg/dl,the test may not accurately detect significant hypoglycemia,and testing in the Laboratory should be considered if clinically indicated. Blood 09/20/2024 3:37 AM NUCLEAR POWERPLANT MECHANIC 09/20/2024 3:37 AM NUCLEAR POWERPLANT MECHANIC Flo Villagran MD LAB POCT ORDERABLES - DEVICE Final Result Performing Organization Address [facility] Co de Phone Number [facility] [address] [employer] [place] [address] * (ABNORMAL) eGFR (09/20/2024 12:27 AM NUCLEAR POWERPLANT MECHANIC) [facility] eGFR 43(L) >=60 mL/min/1. 73 m2 [...] reviewed 2021. Blood 09/20/2024 12:2 7 AM NUCLEAR POWERPLANT MECHANIC 09/20/2024 12:27 AM NUCLEAR POWERPLANT MECHANIC us Elida Vigil DO LAB BLOOD ORDERABLES F inal Result [facility] [address] Department [place] [address] * (ABNORMAL) Differential, auto (09/20/2024 12:27 AM NUCLEAR POWERPLANT MECHANIC) Neutrophil abs 8.9(H) 1.5 - 6.5 K/cumm Imm gran abs 0.5(H) 0.0 - 0.1 K/cumm [facility] Lymphocyte abs 0.9 0.8 - 3.3 K/cumm [facility] Monocyte abs 0.7 0.2 - 0.8 K/cumm [facility] Eosinophil abs 0.2 0.0 - 0.5 K/cumm [facility] Basophil abs 0.0 0.0 - 0.1 K/cumm [facility] Neutrophil pct 79.8 % [facility] Comment: Interpretive Data Percent cell count reference ranges are not reported, since discordance with absolute values may lead to misinterpretation of CBC data. Current Interpretive Data was last revised on 2017. Imm gran pct 4.5 % [facility] Comment: Interpretive Data Percent cell count reference ranges are not reported, since discordance with absolute values may lead to misinterpretation of CBC data. Current Interpretive Data was last revised on 2017. Lymphocyte pct 7.8 % [facility] Comment: Interpretive Data Percent cell count reference ranges are not reported, since discordance with absolute values may lead to misinterpretation of CBC data. Current Interpretive Data was last revised on 2017. Monocyte pct 6.3 % [facility] Comment: Interpretive Data Percent cell count reference ranges are not reported, since discordance with absolute values may lead to misinterpretation of CBC data. Current Interpretive Data was last revised on 2017. Eosinophil pct 1.4 % [facility] Comment: Interpretive Data Percent cell count reference ranges are not reported, since discordance with absolute values may lead to misinterpretation of CBC data. Current Interpretive Data was last revised on 2017. Basophil pct 0.2 % [facility] Comment: Interpretive Data Percent cell count reference ranges are not reported, since discordance with absolute values may lead to misinterpretation of CBC data. Current Interpretive Data was last revised on 2017. Blood 09/20/2024 12:2 7 AM NUCLEAR POWERPLANT MECHANIC 09/20/2024 12:27 AM NUCLEAR POWERPLANT MECHANIC us Elida Vigil DO LAB BLOOD ORDERABLES F inal Result [facility] [address] Department [place] [address] * (ABNORMAL) CBC with auto differential (09/20/2024 12:27 AM NUCLEAR POWERPLANT MECHANIC) WBC 11.2(H) 3.8 - 9.9 K/cumm Hgb 7.6(L) 11.9 - 15.5 g/dL [facility] Hct 24.5(L) 35.6 - 45.5 % [facility] Plt 190 150 - 400 K/cumm [facility] MPV 13.0(H) 9.1 - 12.3 fL [facility] RBC 2.67(L) 3.90 - 5.20 M/cumm [facility] MCV 91.8 81.3 - 96.4 fL [facility] MCH 28.5 27.1 - 33.3 pg [facility] MCHC 31.0(L) 32.3 - 35.7 g/dL [facility] RDW CV 15.2(H) 11.1 - 14.9 % [facility] RDW SD 50.5(H) 35.7 - 48.1 fL [facility] NRBC abs 0.00 0.00 - 0.01 K/cumm [facility] Blood 09/20/2024 12:2 7 AM NUCLEAR POWERPLANT MECHANIC 09/20/2024 12:27 AM NUCLEAR POWERPLANT MECHANIC us Elida Vigil DO LAB BLOOD ORDERABLES F inal Result [facility] [address] Department [place] [address] * (ABNORMAL) Comprehensive metabolic panel (09/20/2024 12:27 AM NUCLEAR POWERPLANT MECHANIC) Sodium 147(H) 135 - 145 mmol/L Potassium, pl 3.3 3.3 - 4.9 mmol/L [facility] Chloride 117(H) 97 - 110 mmol/L [facility] CO2 18(L) 22 - 32 mmol/L [facility] Anion gap 12 2 - 15 mmol/L [facility] BUN 40(H) 6 - 25 mg/dL [facility] Creatinine 1.48(H) 0.60 - 1.10 mg/dL [facility] Glucose 221(H) 70 - 199 mg/dL [facility] Comment: Interpretive Data Fasting glucose >/= 126 [...] classification and Diagnosis of Diabetes Diabetes Care 2022; 46: S19-S40. Current interpretive data was last revised 2022. Calcium 7.5(L) 8.5 - 10.3 mg/dL [facility] Bilirubin, total 0.2 0.1 - 1.2 mg/dL [facility] Protein, pl 5.6(L) 6.5 - 8.5 g/dL [facility] Albumin 2.1(L) 3.5 - 5.0 g/dL [facility] Alk phos 134(H) 40 - 130 Units/L [facility] ALT 14 7 - 45 Units/L [facility] AST 27 10 - 45 Units/L [facility] Blood 09/20/2024 12:2 7 AM NUCLEAR POWERPLANT MECHANIC 09/20/2024 12:27 AM NUCLEAR POWERPLANT MECHANIC us Elida Vigil DO LAB BLOOD ORDERABLES F inal Result Performing Organization Address City/[facility]/ZIP Co de Phone Number [facility] [address] [place] [address] * (ABNORMAL) POCT glucose (09/19/2024 11:00 PM NUCLEAR POWERPLANT MECHANIC) Glucose, POC 217(H) 70 - 199 mg/dL Comment: For Glucose values <35 mg/dl when Hematocrit is >60 mg/dl,the test may not accurately detect significant hypoglycemia,and testing in the Laboratory should be considered if clinically indicated. Blood 09/19/2024 11:0 0 PM NUCLEAR POWERPLANT MECHANIC 09/19/2024 11:00 PM NUCLEAR POWERPLANT MECHANIC us Flo Villagran MD LAB POCT ORDERABLES - DEVICE Final Result [facility] [address] [place] [address] * POCT glucose (09/19/2024 7:52 PM NUCLEAR POWERPLANT MECHANIC) Glucose, POC 196 70 - 199 mg/dL Comment: For Glucose values <35 mg/dl when Hematocrit is >60 mg/dl,the test may not accurately detect significant hypoglycemia,and testing in the Laboratory should be considered if clinically indicated. Blood 09/19/2024 7:52 PM NUCLEAR POWERPLANT MECHANIC 09/19/2024 7:52 PM NUCLEAR POWERPLANT MECHANIC Flo Villagran MD LAB POCT ORDERABLES - DEVICE Final Result Performing Organization Address [facility] Co de Phone Number [facility] [address] [facility] [employer] [place] [address] * POCT glucose (09/19/2024 4:55 PM NUCLEAR POWERPLANT MECHANIC) Glucose, POC 179 70 - 199 mg/dL Comment: For Glucose values <35 mg/dl when Hematocrit is >60 mg/dl,the test may not accurately detect significant hypoglycemia,and testing in the Laboratory should be considered if clinically indicated. Blood 09/19/2024 4:55 PM NUCLEAR POWERPLANT MECHANIC 09/19/2024 4:55 PM NUCLEAR POWERPLANT MECHANIC Flo Villagran MD LAB POCT ORDERABLES - DEVICE Final Result Performing Organization Address [facility] Co de Phone Number [facility] [address] [facility] [employer] [place] [address] * (ABNORMAL) POCT glucose (09/19/2024 12:31 PM NUCLEAR POWERPLANT MECHANIC) Glucose, POC 260(H) 70 - 199 mg/dL Comment: For Glucose values <35 mg/dl when Hematocrit is >60 mg/dl,the test may not accurately detect significant hypoglycemia,and testing in the Laboratory should be considered if clinically indicated. Blood 09/19/2024 12:3 1 PM NUCLEAR POWERPLANT MECHANIC 09/19/2024 12:31 PM NUCLEAR POWERPLANT MECHANIC Flo Villagran MD LAB POCT ORDERABLES - DEVICE Final Result Performing Organization Address [facility]/ZIP Co de Phone Number [facility] [address] [facility] [employer] [place] [address] * Potassium (09/19/2024 10:04 AM NUCLEAR POWERPLANT MECHANIC) Potassium, pl 3.4 3.3 - 4.9 mmol/L Blood 09/19/2024 10:0 4 AM NUCLEAR POWERPLANT MECHANIC 09/19/2024 10:12 AM NUCLEAR POWERPLANT MECHANIC us Elida Winsome Musa DO LAB BLOOD ORDERABLES F inal Result [facility] [address] Department [place] [address] * EEG (09/19/2024 8:50 AM NUCLEAR POWERPLANT MECHANIC) Anatomical Region Laterality Modality EEG Narrative 09/19/2024 1:18 PM NUCLEAR POWERPLANT MECHANIC REPORT OF ELECTROENCEPHALOGRAM DATE OF STUDY: 09/19/24 Brooke Marshall 1975 REASON FOR STUDY: Confusional state BRIEF HISTORY: Brooke Marshall is a 48 y.o. year old female currently in the ICU, still on ventilator. Admitted with DKA and influenza. Has been witnessed to have diminished mental status. DESCRIPTION: This is a routine 18-channel EEG. The underlying background rhythm consists of a [id number] voltage 5-7 Hz theta rhythm which remains [...] * (ABNORMAL) POCT glucose (09/19/2024 7:53 AM NUCLEAR POWERPLANT MECHANIC) Glucose, POC 214(H) 70 - 199 mg/dL Comment: For Glucose values <35 mg/dl when Hematocrit is >60 mg/dl,the test may not accurately detect significant hypoglycemia,and testing in the Laboratory should be considered if clinically indicated. Blood 09/19/2024 7:53 AM NUCLEAR POWERPLANT MECHANIC 09/19/2024 7:53 AM NUCLEAR POWERPLANT MECHANIC Elida Schumacher [employer] LAB POCT ORDERABLES - DEVICE Final Result Performing Organization Address [facility] de Phone Number [facility] [address] [facility] [employer] [place] [address] * (ABNORMAL) POCT glucose (09/19/2024 3:58 AM NUCLEAR POWERPLANT MECHANIC) Glucose, POC 234(H) 70 - 199 mg/dL Comment: For Glucose values <35 mg/dl when Hematocrit is >60 mg/dl,the test may not accurately detect significant hypoglycemia,and testing in the Laboratory should be considered if clinically indicated. Blood 09/19/2024 3:58 AM NUCLEAR POWERPLANT MECHANIC 09/19/2024 3:58 AM NUCLEAR POWERPLANT MECHANIC Elida Winsome Vigil [facility] POCT ORDERABLES - DEVICE Final Result Performing Organization Address [facility] Co de Phone Number [facility] [address] [facility] [employer] [place], [place] [phone] * (ABNORMAL) eGFR (09/19/2024 1:46 AM NUCLEAR POWERPLANT MECHANIC) eGFR 36(L) >=60 mL/min/1. 73 m2 Comment: [...] last reviewed 2021. Blood 09/19/2024 1:46 AM NUCLEAR POWERPLANT MECHANIC 09/19/2024 1:46 AM NUCLEAR POWERPLANT MECHANIC us Elida Vigil DO LAB BLOOD ORDERABLES F inal Result [facility] [address] Department of Laboratories [place] [address] * (ABNORMAL) Differential, auto (09/19/2024 1:46 AM NUCLEAR POWERPLANT MECHANIC) Neutrophil abs 6.7(H) 1.5 - 6.5 K/cumm Imm gran abs 0.5(H) 0.0 - 0.1 K/cumm [facility] Lymphocyte abs 0.7(L) 0.8 - 3.3 K/cumm [facility] Monocyte abs 1.1(H) 0.2 - 0.8 K/cumm [facility] Eosinophil abs 0.1 0.0 - 0.5 K/cumm [facility] Basophil abs 0.0 0.0 - 0.1 K/cumm [facility] Neutrophil pct 72.5 % [facility] Comment: Interpretive Data Percent cell count reference ranges are not reported, since discordance with absolute values may lead to misinterpretation of CBC data. Current Interpretive Data was last revised on 2017. Imm gran pct 5.8 % [facility] Comment: Interpretive Data Percent cell count reference ranges are not reported, since discordance with absolute values may lead to misinterpretation of CBC data. Current Interpretive Data was last revised on 2017. Lymphocyte pct 8.1 % [facility] Comment: Interpretive Data Percent cell count reference ranges are not reported, since discordance with absolute values may lead to misinterpretation of CBC data. Current Interpretive Data was last revised on 2017. Monocyte pct 12.3 % [facility] Comment: Interpretive Data Percent cell count reference ranges are not reported, since discordance with absolute values may lead to misinterpretation of CBC data. Current Interpretive Data was last revised on 2017. Eosinophil pct 1.2 % [facility] Comment: Interpretive Data Percent cell count reference ranges are not reported, since discordance with absolute values may lead to misinterpretation of CBC data. Current Interpretive Data was last revised on 2017. Basophil pct 0.1 % [facility] Comment: Interpretive Data Percent cell count reference ranges are not reported, since discordance with absolute values may lead to misinterpretation of CBC data. Current Interpretive Data was last revised on 2017. Blood 09/19/2024 1:46 AM NUCLEAR POWERPLANT MECHANIC 09/19/2024 1:46 AM NUCLEAR POWERPLANT MECHANIC us Elida Vigil DO LAB BLOOD ORDERABLES F inal Result [facility] [address] Department [place] [address] * (ABNORMAL) CBC with auto differential (09/19/2024 1:46 AM NUCLEAR POWERPLANT MECHANIC) WBC 9.2 3.8 - 9.9 K/cumm Hgb 7.5(L) 11.9 - 15.5 g/dL [facility] Hct 23.7(L) 35.6 - 45.5 % [facility] Plt 150 150 - 400 K/cumm [facility] MPV 13.4(H) 9.1 - 12.3 fL [facility] RBC 2.61(L) 3.90 - 5.20 M/cumm [facility] MCV 90.8 81.3 - 96.4 fL [facility] MCH 28.7 27.1 - 33.3 pg [facility] MCHC 31.6(L) 32.3 - 35.7 g/dL [facility] RDW CV 14.9 11.1 - 14.9 % [facility] RDW SD 49.1(H) 35.7 - 48.1 fL [facility] NRBC abs 0.00 0.00 - 0.01 K/cumm [facility] Blood 09/19/2024 1:46 AM NUCLEAR POWERPLANT MECHANIC 09/19/2024 1:46 AM NUCLEAR POWERPLANT MECHANIC [employer] DO LAB BLOOD ORDERABLES E dited Result - Final Performing Organization Address [facility]/ZIP Co de Phone Number [facility] [address] [facility] [employer] [place], [place] [id number] * Manual Differential (09/19/2024 1:46 AM NUCLEAR POWERPLANT MECHANIC) [facility] Differential Auto RBC morphology Normal [facility] Morphology scrn See Comment [facility] Comment:PLT: Platelet morpho logy normal Blood 09/19/2024 1:46 AM NUCLEAR POWERPLANT MECHANIC 09/19/2024 1:46 AM NUCLEAR POWERPLANT MECHANIC [employer] Guanghetang DO LAB BLOOD ORDERABLES F inal Result Performing Organization Address [facility] Co de Phone Number [facility] [address] [facility] [employer] [address] * Phosphorus (09/19/2024 1:46 AM NUCLEAR POWERPLANT MECHANIC) Pathologist [facility] Phosphorus, pl 3.0 2.3 - 4.5 mg/dL Blood 09/19/2024 1:46 AM NUCLEAR POWERPLANT MECHANIC 09/19/2024 1:46 AM NUCLEAR POWERPLANT MECHANIC [employer]du[employer]cns DO LAB BLOOD ORDERABLES F inal Result Performing Organization Address City/[facility] Co de Phone Number [facility] [address] [facility] [employer] [place] [address] * Magnesium (09/19/2024 1:46 AM NUCLEAR POWERPLANT MECHANIC) Pathologist [facility] Magnesium 2.3 1.4 - 2.5 mg/dL Blood 09/19/2024 1:46 AM NUCLEAR POWERPLANT MECHANIC 09/19/2024 1:46 AM NUCLEAR POWERPLANT MECHANIC us Elida Vigil DO LAB BLOOD ORDERABLES F inal Result [facility] [address] Department [place] [address] * (ABNORMAL) Comprehensive metabolic panel (09/19/2024 1:46 AM NUCLEAR POWERPLANT MECHANIC) Pathologist [facility] Sodium 145 135 - 145 mmol/L Potassium, pl 2.6(C) 3.3 - 4.9 mmol/L [facility] Comment:Critical result call ed to and read back by Amber Gaines (RN) on 09/19/24 @ 0210 to [id number] Chloride 113(H) 97 - 110 mmol/L [facility] CO2 20(L) 22 - 32 mmol/L [facility] Anion gap 12 2 - 15 mmol/L [facility] BUN 41(H) 6 - 25 mg/dL [facility] Creatinine 1.73(H) 0.60 - 1.10 mg/dL [facility] Glucose 249(H) 70 - 199 mg/dL [facility] Comment: Interpretive Data Fasting glucose >/= 126 [...] 2022. Calcium 7.5(L) 8.5 - 10.3 mg/dL [facility] Bilirubin, total 0.3 0.1 - 1.2 mg/dL [facility] Protein, pl 5.6(L) 6.5 - 8.5 g/dL [facility] Albumin 2.0(L) 3.5 - 5.0 g/dL [facility] Alk phos 127 40 - 130 Units/L [facility] ALT 12 7 - 45 Units/L [facility] AST 24 10 - 45 Units/L [facility] Blood 09/19/2024 1:46 AM NUCLEAR POWERPLANT MECHANIC 09/19/2024 1:46 AM NUCLEAR POWERPLANT MECHANIC Display[employer] DO LAB BLOOD ORDERABLES F inal Result Performing Organization Address [facility] Co de Phone Number [facility] [address] [facility] [employer] [place], [place] [phone] * Ammonia (09/19/2024 1:07 AM NUCLEAR POWERPLANT MECHANIC) Ammonia 40 <=50 mcmol/L Blood 09/19/2024 1:07 AM NUCLEAR POWERPLANT MECHANIC 09/19/2024 1:12 AM NUCLEAR POWERPLANT MECHANIC [employer] LAB BLOOD ORDERABLES F inal Result Performing Organization Address [facility] de Phone Number [facility] [address] [facility] [employer] [place], [place] [phone] * (ABNORMAL) POCT glucose (09/18/2024 11:58 PM NUCLEAR POWERPLANT MECHANIC) Glucose, POC 231(H) 70 - 199 mg/dL Comment: For Glucose values <35 mg/dl when Hematocrit is >60 mg/dl,the test may not accurately detect significant hypoglycemia,and testing in the Laboratory should be considered if clinically indicated. Blood 09/18/2024 11:5 8 PM NUCLEAR POWERPLANT MECHANIC 09/18/2024 11:58 PM NUCLEAR POWERPLANT MECHANIC [employer] LAB POCT ORDERABLES - DEVICE Final Result Performing Organization Address [facility] Co de Phone Number [facility] [address] [facility] [employer] [place] [address] * (ABNORMAL) POCT glucose (09/18/2024 9:10 PM NUCLEAR POWERPLANT MECHANIC) Glucose, POC 261(H) 70 - 199 mg/dL Comment: For Glucose values <35 mg/dl when Hematocrit is >60 mg/dl,the test may not accurately detect significant hypoglycemia,and testing in the Laboratory should be considered if clinically indicated. Blood 09/18/2024 9:10 PM NUCLEAR POWERPLANT MECHANIC 09/18/2024 9:10 PM NUCLEAR POWERPLANT MECHANIC Elida Winsome Vigil DO LAB POCT ORDERABLES - DEVICE Final Result Performing Organization Address [facility] de Phone Number [facility] [address] [facility] [employer] [place] [address] * (ABNORMAL) POCT glucose (09/18/2024 4:18 PM NUCLEAR POWERPLANT MECHANIC) Glucose, POC 229(H) 70 - 199 mg/dL Comment: For Glucose values <35 mg/dl when Hematocrit is >60 mg/dl,the test may not accurately detect significant hypoglycemia,and testing in the Laboratory should be considered if clinically indicated. Blood 09/18/2024 4:18 PM NUCLEAR POWERPLANT MECHANIC 09/18/2024 4:18 PM NUCLEAR POWERPLANT MECHANIC Elida Vigil DO LAB POCT ORDERABLES - DEVICE Final Result Performing Organization Address [facility] Co de Phone Number [facility] [address] [place] [address] * (ABNORMAL) POCT glucose (09/18/2024 12:07 PM NUCLEAR POWERPLANT MECHANIC) Glucose, POC 260(H) 70 - 199 mg/dL Comment: For Glucose values <35 mg/dl when Hematocrit is >60 mg/dl,the test may not accurately detect significant hypoglycemia,and testing in the Laboratory should be considered if clinically indicated. Blood 09/18/2024 12:0 7 PM NUCLEAR POWERPLANT MECHANIC 09/18/2024 12:07 PM NUCLEAR POWERPLANT MECHANIC Elida Verahenok DO LAB POCT ORDERABLES - DEVICE Final Result Performing Organization Address City/[facility]/ZIP Co de Phone Number [facility] [address] [employer] [place] [address] * (ABNORMAL) DIC Platelet (09/18/2024 8:13 AM NUCLEAR POWERPLANT MECHANIC) [facility] Plt 147(L) 150 - 400 K/cumm Blood 09/18/2024 8:13 AM NUCLEAR POWERPLANT MECHANIC 09/18/2024 8:25 AM NUCLEAR POWERPLANT MECHANIC Elida Verahenok [facility] BLOOD ORDERABLES E dited Result - Final Performing Organization Address [facility] de Phone Number [facility] [address] Department [place] [address] * (ABNORMAL) Differential, auto (09/18/2024 8:13 AM NUCLEAR POWERPLANT MECHANIC) [facility] Neutrophil abs 7.0(H) 1.5 - 6.5 K/cumm Imm gran abs 0.6(H) 0.0 - 0.1 K/cumm [facility] Lymphocyte abs 0.7(L) 0.8 - 3.3 K/cumm [facility] Monocyte abs 1.4(H) 0.2 - 0.8 K/cumm [facility] Eosinophil abs 0.1 0.0 - 0.5 K/cumm [facility] Basophil abs 0.1 0.0 - 0.1 K/cumm [facility] Neutrophil pct 71.8 % [facility] Comment: Interpretive Data Percent cell count reference ranges are not reported, since discordance with absolute values may lead to misinterpretation of CBC data. Current Interpretive Data was last revised on 2017. Imm gran pct 6.0 % [facility] Comment: Interpretive Data Percent cell count reference ranges are not reported, since discordance with absolute values may lead to misinterpretation of CBC data. Current Interpretive Data was last revised on 2017. Lymphocyte pct 6.6 % [facility] Comment: Interpretive Data Percent cell count reference ranges are not reported, since discordance with absolute values may lead to misinterpretation of CBC data. Current Interpretive Data was last revised on 2017. Monocyte pct 14.1 % [facility] Comment: Interpretive Data Percent cell count reference ranges are not reported, since discordance with absolute values may lead to misinterpretation of CBC data. Current Interpretive Data was last revised on 2017. Eosinophil pct 0.9 % [facility] Comment: Interpretive Data Percent cell count reference ranges are not reported, since discordance with absolute values may lead to misinterpretation of CBC data. Current Interpretive Data was last revised on 2017. Basophil pct 0.6 % [facility] Comment: Interpretive Data Percent cell count reference ranges are not reported, since discordance with absolute values may lead to misinterpretation of CBC data. Current Interpretive Data was last revised on 2017. Blood 09/18/2024 8:13 AM NUCLEAR POWERPLANT MECHANIC 09/18/2024 8:13 AM NUCLEAR POWERPLANT MECHANIC [employer] DO LAB BLOOD ORDERABLES F inal Result Performing Organization Address City/[facility] Co de Phone Number [facility] [address] [place] [employer] [address] * DIC Schistocytes (09/18/2024 8:13 AM NUCLEAR POWERPLANT MECHANIC) Schistocytes None Seen None Seen Blood 09/18/2024 8:13 AM NUCLEAR POWERPLANT MECHANIC 09/18/2024 8:25 AM NUCLEAR POWERPLANT MECHANIC [employer] Guanghetang DO LAB BLOOD ORDERABLES F inal Result Performing Organization Address City/[facility]/ZIP Co de Phone Number [facility] [address] Department [place] [place] [address] * (ABNORMAL) CBC with auto differential (09/18/2024 8:13 AM NUCLEAR POWERPLANT MECHANIC) WBC 9.8 3.8 - 9.9 K/cumm Hgb 8.9(L) 11.9 - 15.5 g/dL [facility] Hct 28.7(L) 35.6 - 45.5 % [facility] Plt 147(L) 150 - 400 K/cumm [facility] MPV 13.2(H) 9.1 - 12.3 fL [facility] RBC 3.06(L) 3.90 - 5.20 M/cumm [facility] MCV 93.8 81.3 - 96.4 fL [facility] MCH 29.1 27.1 - 33.3 pg [facility] MCHC 31.0(L) 32.3 - 35.7 g/dL [facility] RDW CV 14.7 11.1 - 14.9 % [facility] RDW SD 50.8(H) 35.7 - 48.1 fL [facility] NRBC abs 0.03(H) 0.00 - 0.01 K/cumm [facility] Blood 09/18/2024 8:13 AM NUCLEAR POWERPLANT MECHANIC 09/18/2024 8:20 AM NUCLEAR POWERPLANT MECHANIC Elida Vigil DO LAB BLOOD ORDERABLES E dited Result - Final Performing Organization Address [facility] Co de Phone Number [facility] [address] Department [place] [address] * (ABNORMAL) POCT glucose (09/18/2024 7:57 AM NUCLEAR POWERPLANT MECHANIC) [facility] Signature Glucose, POC 271(H) 70 - 199 mg/dL Comment: For Glucose values <35 mg/dl when Hematocrit is >60 mg/dl,the test may not accurately detect significant hypoglycemia,and testing in the Laboratory should be considered if clinically indicated. Blood 09/18/2024 7:57 AM NUCLEAR POWERPLANT MECHANIC 09/18/2024 7:57 AM NUCLEAR POWERPLANT MECHANIC us Elida Vigil DO LAB POCT ORDERABLES - DEVICE Final Result Performing Organization Address [facility]/ZIP Co de Phone Number [facility] [address] Department [place] [address] * (ABNORMAL) POCT glucose (09/18/2024 7:56 AM NUCLEAR POWERPLANT MECHANIC) [facility] Glucose, POC 240(H) 70 - 199 mg/dL Comment: For Glucose values <35 mg/dl when Hematocrit is >60 mg/dl,the test may not accurately detect significant hypoglycemia,and testing in the Laboratory should be considered if clinically indicated. Blood 09/18/2024 7:56 AM NUCLEAR POWERPLANT MECHANIC 09/18/2024 7:56 AM NUCLEAR POWERPLANT MECHANIC us Elida Vigil DO LAB POCT ORDERABLES - DEVICE Final Result [facility] [address] Department [place] [address] * (ABNORMAL) eGFR (09/18/2024 7:26 AM NUCLEAR POWERPLANT MECHANIC) [facility] eGFR 40(L) >=60 mL/min/1. 73 m2 Comment: [...] last reviewed 2021. Blood 09/18/2024 7:26 AM NUCLEAR POWERPLANT MECHANIC 09/18/2024 7:47 AM NUCLEAR POWERPLANT MECHANIC us Elida Vigil DO LAB BLOOD ORDERABLES F inal Result [facility] [address] [facility] [employer] [address] * Phosphorus (09/18/2024 7:26 AM NUCLEAR POWERPLANT MECHANIC) Pathologist [facility] Phosphorus, pl 2.9 2.3 - 4.5 mg/dL Comment:Reviewed - dialysis patient Blood 09/18/2024 7:26 AM NUCLEAR POWERPLANT MECHANIC 09/18/2024 7:47 AM NUCLEAR POWERPLANT MECHANIC Elida Vigil DO LAB BLOOD ORDERABLES F inal Result Performing Organization Address [facility] Co de Phone Number [facility] [address] [facility] [employer] [place] [address] * Magnesium (09/18/2024 7:26 AM NUCLEAR POWERPLANT MECHANIC) [facility] Magnesium 2.3 1.4 - 2.5 mg/dL Blood 09/18/2024 7:26 AM NUCLEAR POWERPLANT MECHANIC 09/18/2024 7:47 AM NUCLEAR POWERPLANT MECHANIC Elida Vigil DO LAB BLOOD ORDERABLES F inal Result Performing Organization Address City/[facility] Co de Phone Number [facility] [address] [facility] [employer] [address] * Vitamin B12 (09/18/2024 7:26 AM NUCLEAR POWERPLANT MECHANIC) Pathologist [facility] Vitamin B12 878 230 - 1,250 pg/mL Blood 09/18/2024 7:26 AM NUCLEAR POWERPLANT MECHANIC 09/18/2024 7:47 AM NUCLEAR POWERPLANT MECHANIC Elida Vigil DO LAB BLOOD ORDERABLES F inal Result [facility] [address] [facility] [employer] [address] * (ABNORMAL) Comprehensive metabolic panel (09/18/2024 7:26 AM NUCLEAR POWERPLANT MECHANIC) Sodium 143 135 - 145 mmol/L Potassium, pl 3.4 3.3 - 4.9 mmol/L [facility] Comment:Hemolyzed; potassium value may be falsely elevated by as much as 0.3 - 0.5 mmol/L. Suggest redraw and reanalysis Chloride 111(H) 97 - 110 mmol/L [facility] CO2 19(L) 22 - 32 mmol/L [facility] Anion gap 13 2 - 15 mmol/L [facility] BUN 39(H) 6 - 25 mg/dL [facility] Creatinine 1.57(H) 0.60 - 1.10 mg/dL [facility] Glucose 227(H) 70 - 199 mg/dL [facility] Comment: Interpretive Data Fasting glucose >/= 126 [...] 2022. Calcium 7.8(L) 8.5 - 10.3 mg/dL [facility] Bilirubin, total 0.4 0.1 - 1.2 mg/dL [facility] Protein, pl 5.9(L) 6.5 - 8.5 g/dL [facility] Albumin 2.2(L) 3.5 - 5.0 g/dL [facility] Alk phos 141(H) 40 - 130 Units/L [facility] ALT 18 7 - 45 Units/L [facility] AST 31 10 - 45 Units/L [facility] Comment:Slightly Hemolyzed S pecimen Blood 09/18/2024 7:26 AM NUCLEAR POWERPLANT MECHANIC 09/18/2024 7:47 AM NUCLEAR POWERPLANT MECHANIC us [employer] LAB BLOOD ORDERABLES F inal Result Performing Organization Address [facility] Co de Phone Number [facility] [address] [facility] [employer] [address] * (ABNORMAL) POCT glucose (09/18/2024 4:28 AM NUCLEAR POWERPLANT MECHANIC) Glucose, POC 243(H) 70 - 199 mg/dL Comment: For Glucose values <35 mg/dl when Hematocrit is >60 mg/dl,the test may not accurately detect significant hypoglycemia,and testing in the Laboratory should be considered if clinically indicated. Blood 09/18/2024 4:28 AM NUCLEAR POWERPLANT MECHANIC 09/18/2024 4:28 AM NUCLEAR POWERPLANT MECHANIC Elida Winsome [employer] LAB POCT ORDERABLES - DEVICE Final Result Performing Organization Address [facility] Co de Phone Number [facility] [address] [facility] [employer] [address] * (ABNORMAL) DIC Coagulation (09/18/2024 4:20 AM NUCLEAR POWERPLANT MECHANIC) Pathologist [facility] PT DIC 10.5 10.3 - 13.7 sec INR DIC 0.97 0.90 - 1.20 [facility] PTT DIC 18(L) 28 - 38 sec [facility] Comment: Specimen integrity okay Interpretive Data Heparin therapeutic range: 66.0 - 100.0 seconds. Range based on correlation with therapeutic heparin activity range of 0.3 - 0.7 Units/mL. Current interpretive data was last revised on 2023. D-Dimer 13,588(H) <=499 ng/mL FEU [facility] Comment: Specimen not clotted and filled properly [...] 2019. Fibrinogen 775(H) 170 - 400 mg/dL [facility] Blood 09/18/2024 4:20 AM NUCLEAR POWERPLANT MECHANIC 09/18/2024 4:21 AM NUCLEAR POWERPLANT MECHANIC [employer] DO LAB BLOOD ORDERABLES F inal Result Performing Organization Address [facility] Co de Phone Number [facility] [address] [facility] [employer] [place], [place] [id number] * (ABNORMAL) POCT glucose (09/17/2024 11:57 PM NUCLEAR POWERPLANT MECHANIC) Glucose, POC 263(H) 70 - 199 mg/dL Comment: For Glucose values <35 mg/dl when Hematocrit is >60 mg/dl,the test may not accurately detect significant hypoglycemia,and testing in the Laboratory should be considered if clinically indicated. Blood 09/17/2024 11:5 7 PM NUCLEAR POWERPLANT MECHANIC 09/17/2024 11:57 PM NUCLEAR POWERPLANT MECHANIC Elidamartha Vigil DO LAB POCT ORDERABLES - DEVICE Final Result Performing Organization Address [facility] Co de Phone Number [facility] [address] [facility] [employer] [address] * (ABNORMAL) POCT glucose (09/17/2024 8:02 PM NUCLEAR POWERPLANT MECHANIC) Glucose, POC 291(H) 70 - 199 mg/dL Comment: For Glucose values <35 mg/dl when Hematocrit is >60 mg/dl,the test may not accurately detect significant hypoglycemia,and testing in the Laboratory should be considered if clinically indicated. Blood 09/17/2024 8:02 PM NUCLEAR POWERPLANT MECHANIC 09/17/2024 8:02 PM NUCLEAR POWERPLANT MECHANIC Elida Vigil [employer] LAB POCT ORDERABLES - DEVICE Final Result Performing Organization Address [facility] Co de Phone Number [facility] [address] [facility] [place] [address] * (ABNORMAL) POCT glucose (09/17/2024 4:21 PM NUCLEAR POWERPLANT MECHANIC) Pathologist [facility] Glucose, POC 283(H) 70 - 199 mg/dL Comment: For Glucose values <35 mg/dl when Hematocrit is >60 mg/dl,the test may not accurately detect significant hypoglycemia,and testing in the Laboratory should be considered if clinically indicated. Blood 09/17/2024 4:21 PM NUCLEAR POWERPLANT MECHANIC 09/17/2024 4:21 PM NUCLEAR POWERPLANT MECHANIC Elida Vigil LAB POCT ORDERABLES - DEVICE Final Result Performing Organization Address [facility] de Phone Number [facility] [address] [place] [address] * (ABNORMAL) eGFR (09/17/2024 2:52 PM NUCLEAR POWERPLANT MECHANIC) [facility] eGFR 34(L) >=60 mL/min/1. 73 m2 [...] last reviewed 2021. Blood 09/17/2024 2:52 PM NUCLEAR POWERPLANT MECHANIC 09/17/2024 2:57 PM NUCLEAR POWERPLANT MECHANIC Elida Vigil DO LAB BLOOD ORDERABLES F inal Result [facility] [address] Department [place] [address] * (ABNORMAL) Renal function panel (09/17/2024 2:52 PM NUCLEAR POWERPLANT MECHANIC) Sodium 143 135 - 145 mmol/L Potassium, pl 3.6 3.3 - 4.9 mmol/L [facility] Chloride 110 97 - 110 mmol/L [facility] CO2 21(L) 22 - 32 mmol/L [facility] Anion gap 12 2 - 15 mmol/L [facility] BUN 41(H) 6 - 25 mg/dL [facility] Creatinine 1.82(H) 0.60 - 1.10 mg/dL [facility] Glucose 290(H) 70 - 199 mg/dL [facility] Comment: Interpretive Data Fasting glucose >/= 126 [...] 2022. Calcium 7.9(L) 8.5 - 10.3 mg/dL [facility] Phosphorus, pl 5.0(H) 2.3 - 4.5 mg/dL [facility] Comment:Reviewed Albumin 2.4(L) 3.5 - 5.0 g/dL [facility] Blood 09/17/2024 2:52 PM NUCLEAR POWERPLANT MECHANIC 09/17/2024 2:57 PM NUCLEAR POWERPLANT MECHANIC us Elida Verahenok DO LAB BLOOD ORDERABLES F inal Result Performing Organization Address [facility] Co de Phone Number [facility] [address] [facility] [employer] [place] [address] * (ABNORMAL) POCT glucose (09/17/2024 12:23 PM NUCLEAR POWERPLANT MECHANIC) Glucose, POC 278(H) 70 - 199 mg/dL Comment: For Glucose values <35 mg/dl when Hematocrit is >60 mg/dl,the test may not accurately detect significant hypoglycemia,and testing in the Laboratory should be considered if clinically indicated. Blood 09/17/2024 12:2 3 PM NUCLEAR POWERPLANT MECHANIC 09/17/2024 12:23 PM NUCLEAR POWERPLANT MECHANIC Elida Verahenok LAB POCT ORDERABLES - DEVICE Final Result Performing Organization Address [facility] Co de Phone Number [facility] [address] [facility] [employer] [place] [address] * (ABNORMAL) POCT glucose (09/17/2024 7:09 AM NUCLEAR POWERPLANT MECHANIC) Glucose, POC 294(H) 70 - 199 mg/dL Comment: For Glucose values <35 mg/dl when Hematocrit is >60 mg/dl,the test may not accurately detect significant hypoglycemia,and testing in the Laboratory should be considered if clinically indicated. Blood 09/17/2024 7:09 AM NUCLEAR POWERPLANT MECHANIC 09/17/2024 7:09 AM NUCLEAR POWERPLANT MECHANIC Elida Verahenok DO LAB POCT ORDERABLES - DEVICE Final Result Performing Organization Address [facility] Co de Phone Number [facility] [address] [facility] [employer] [place] [address] * (ABNORMAL) POCT glucose (09/17/2024 4:42 AM NUCLEAR POWERPLANT MECHANIC) Glucose, POC 300(H) 70 - 199 mg/dL Comment: For Glucose values <35 mg/dl when Hematocrit is >60 mg/dl,the test may not accurately detect significant hypoglycemia,and testing in the Laboratory should be considered if clinically indicated. Blood 09/17/2024 4:42 AM NUCLEAR POWERPLANT MECHANIC 09/17/2024 4:42 AM NUCLEAR POWERPLANT MECHANIC Elida Vigil DO LAB POCT ORDERABLES - DEVICE Final Result Performing Organization Address [facility] Co de Phone Number [facility] [address] [place] [address] * (ABNORMAL) eGFR (09/17/2024 4:10 AM NUCLEAR POWERPLANT MECHANIC) eGFR 36(L) >=60 mL/min/1. 73 m2 Comment: [...] last reviewed 2021. Blood 09/17/2024 4:10 AM NUCLEAR POWERPLANT MECHANIC 09/17/2024 4:10 AM NUCLEAR POWERPLANT MECHANIC Elida Vigil DO LAB BLOOD ORDERABLES F inal Result Performing Organization Address [facility]/ZIP Co de Phone Number [facility] [address] Department [employer] [place], [place] [id number] * Thyroid Function [place] (09/17/2024 4:10 AM NUCLEAR POWERPLANT MECHANIC) [facility] TSH 1.79 0.30 - 4.20 mcIUnit/mL Blood 09/17/2024 4:10 AM NUCLEAR POWERPLANT MECHANIC 09/17/2024 4:10 AM NUCLEAR POWERPLANT MECHANIC [facility] BLOOD ORDERABLES F inal Result Performing Organization Address [facility] de Phone Number [facility] [address] [employer] [place] [address] * (ABNORMAL) CBC with auto differential (09/17/2024 4:10 AM NUCLEAR POWERPLANT MECHANIC) [facility] WBC 7.1 3.8 - 9.9 K/cumm Hgb 8.7(L) 11.9 - 15.5 g/dL [facility] Hct 27.4(L) 35.6 - 45.5 % [facility] Plt 93(L) 150 - 400 K/cumm [facility] MPV 12.8(H) 9.1 - 12.3 fL [facility] RBC 3.03(L) 3.90 - 5.20 M/cumm [facility] MCV 90.4 81.3 - 96.4 fL [facility] MCH 28.7 27.1 - 33.3 pg [facility] MCHC 31.8(L) 32.3 - 35.7 g/dL [facility] RDW CV 14.6 11.1 - 14.9 % [facility] RDW SD 48.9(H) 35.7 - 48.1 fL [facility] NRBC abs 0.00 0.00 - 0.01 K/cumm [facility] Blood 09/17/2024 4:10 AM NUCLEAR POWERPLANT MECHANIC 09/17/2024 4:10 AM NUCLEAR POWERPLANT MECHANIC Elida Verahenok LAB BLOOD ORDERABLES F inal Result Performing Organization Address [facility] Co de Phone Number [facility] [address] [facility] [employer] [place], [place] [id number] * (ABNORMAL) Manual Differential (09/17/2024 4:10 AM NUCLEAR POWERPLANT MECHANIC) Differential Manual Cells Counted 120 [facility] Neutrophil abs 5.9 1.5 - 6.5 K/cumm [facility] Imm gran abs 0.2(H) 0.0 - 0.1 K/cumm [facility] Lymphocyte abs 0.6(L) 0.8 - 3.3 K/cumm [facility] Monocyte abs 0.4 0.2 - 0.8 K/cumm [facility] Eosinophil abs 0.1 0.0 - 0.5 K/cumm [facility] Basophil abs 0.1 0.0 - 0.1 K/cumm [facility] Neutrophil pct 82.6 % [facility] Comment: Interpretive Data Percent cell count reference ranges are not reported, since discordance with absolute values may lead to misinterpretation of CBC data. Current Interpretive Data was last revised on 2017. Lymphocyte pct 8.3 % [facility] Comment: Interpretive Data Percent cell count reference ranges are not reported, since discordance with absolute values may lead to misinterpretation of CBC data. Current Interpretive Data was last revised on 2017. Monocyte pct 5.0 % [facility] Comment: Interpretive Data Percent cell count reference ranges are not reported, since discordance with absolute values may lead to misinterpretation of CBC data. Current Interpretive Data was last revised on 2017. Eosinophil pct 0.8 % [facility] Comment: Interpretive Data Percent cell count reference ranges are not reported, since discordance with absolute values may lead to misinterpretation of CBC data. Current Interpretive Data was last revised on 2017. Basophil pct 0.8 % [facility] Comment: Interpretive Data Percent cell count reference ranges are not reported, since discordance with absolute values may lead to misinterpretation of CBC data. Current Interpretive Data was last revised on 2017. Myelocyte pct 0.8(H) 0.0 - 0.0 % [facility] Promyelocyte pct 1.7(H) 0.0 - 0.0 % [facility] RBC morphology Present(A) [facility] Anisocytosis Slight(A) [facility] Morphology scrn See Comment [facility] Comment:PLT: Platelet morpho logy normal Blood 09/17/2024 4:10 AM NUCLEAR POWERPLANT MECHANIC 09/17/2024 4:10 AM NUCLEAR POWERPLANT MECHANIC Elida Vigil DO LAB BLOOD ORDERABLES F inal Result Performing Organization Address [facility] Co de Phone Number [facility] [address] [facility] [employer] [place] [address] * (ABNORMAL) Phosphorus (09/17/2024 4:10 AM NUCLEAR POWERPLANT MECHANIC) Phosphorus, pl 2.2(L) 2.3 - 4.5 mg/dL Blood 09/17/2024 4:10 AM NUCLEAR POWERPLANT MECHANIC 09/17/2024 4:10 AM NUCLEAR POWERPLANT MECHANIC Elida Vigil LAB BLOOD ORDERABLES F inal Result Performing Organization Address [facility] Co de Phone Number [facility] [address] [place] [address] * Magnesium (09/17/2024 4:10 AM NUCLEAR POWERPLANT MECHANIC) Magnesium 2.3 1.4 - 2.5 mg/dL Blood 09/17/2024 4:10 AM NUCLEAR POWERPLANT MECHANIC 09/17/2024 4:10 AM NUCLEAR POWERPLANT MECHANIC Elida Vigil LAB BLOOD ORDERABLES F inal Result Performing Organization Address [facility] Co de Phone Number [facility] [address] [facility] [employer] [place] [address] * (ABNORMAL) Haptoglobin (09/17/2024 4:10 AM NUCLEAR POWERPLANT MECHANIC) Haptoglobin 408(H) 30 - 200 mg/dL Blood 09/17/2024 4:10 AM NUCLEAR POWERPLANT MECHANIC 09/17/2024 4:10 AM NUCLEAR POWERPLANT MECHANIC us Elida Schumacher Musa DO LAB BLOOD ORDERABLES F inal Result [facility] [address] Department [place] [address] * (ABNORMAL) Comprehensive metabolic panel (09/17/2024 4:10 AM NUCLEAR POWERPLANT MECHANIC) Sodium 143 135 - 145 mmol/L Potassium, pl 2.8(L) 3.3 - 4.9 mmol/L [facility] Chloride 109 97 - 110 mmol/L [facility] CO2 21(L) 22 - 32 mmol/L [facility] Anion gap 13 2 - 15 mmol/L [facility] BUN 43(H) 6 - 25 mg/dL [facility] Creatinine 1.71(H) 0.60 - 1.10 mg/dL [facility] Glucose 288(H) 70 - 199 mg/dL [facility] Comment: Interpretive Data Fasting glucose >/= 126 [...] 2022. Calcium 7.9(L) 8.5 - 10.3 mg/dL [facility] Bilirubin, total 0.3 0.1 - 1.2 mg/dL [facility] Protein, pl 5.5(L) 6.5 - 8.5 g/dL [facility] Albumin 2.2(L) 3.5 - 5.0 g/dL [facility] Alk phos 115 40 - 130 Units/L [facility] ALT 18 7 - 45 Units/L [facility] AST 23 10 - 45 Units/L [facility] Blood 09/17/2024 4:10 AM NUCLEAR POWERPLANT MECHANIC 09/17/2024 4:10 AM NUCLEAR POWERPLANT MECHANIC Elida Vigil DO LAB BLOOD ORDERABLES F inal Result [facility] [address] Department [place] [address] * XR Chest 1 View (09/17/2024 2:59 AM NUCLEAR POWERPLANT MECHANIC) Anatomical Region Laterality Modality Body, Chest N/A Computed Radiogr aphy 09/17/2024 7:00 AM NUCLEAR POWERPLANT MECHANIC Impressions 09/17/2024 7:00 AM NUCLEAR POWERPLANT MECHANIC Comparison chest radiograph 09/16/2024. Endotracheal tube terminates 4 cm above the jessenia. Gastric tube courses along the esophagus and terminates below the diaphragm outside the hyhhb-pa-outz. Small lung volumes. Similar-appearing patchy airspace opacity in left lower lung which may represent a pneumonia. Right lung is clear. No pleural effusion or pneumothorax. Heart size and mediastinal contours are stable. Electronically signed by: Teja Angeles MD, PHD Narrative 09/17/2024 7:00 AM NUCLEAR POWERPLANT MECHANIC EXAMINATION: XR CHEST 1 VIEW Procedure Note Teja Angeles MD PhD - 09/17/2024 EXAMINATION: XR CHEST 1 VIEW IMPRESSION: Comparison chest radiograph 09/16/2024. Endotracheal tube terminates 4 cm above the jessenia. Gastric tube courses along the esophagus and terminates below the diaphragm outside the odpye-do-pdtq. Small lung volumes. Similar-appearing patchy airspace opacity in left lower lung which may represent a pneumonia. Right lung is clear. No pleural effusion or pneumothorax. Heart size and mediastinal contours are stable. Electronically signed by: Teja Angeles MD, PHD Elida Vigil DO IMG XR PROCEDURES Salma l Result * (ABNORMAL) POCT glucose (09/16/2024 11:48 PM NUCLEAR POWERPLANT MECHANIC) [facility] Glucose, POC 288(H) 70 - 199 mg/dL Comment: For Glucose values <35 mg/dl when Hematocrit is >60 mg/dl,the test may not accurately detect significant hypoglycemia,and testing in the Laboratory should be considered if clinically indicated. Blood 09/16/2024 11:4 8 PM NUCLEAR POWERPLANT MECHANIC 09/16/2024 11:48 PM NUCLEAR POWERPLANT MECHANIC Elida Verahenok DO LAB POCT ORDERABLES - DEVICE Final Result Performing Organization Address [facility] Co de Phone Number [facility] [address] [facility] [employer] [place] [address] * (ABNORMAL) POCT glucose (09/16/2024 8:12 PM NUCLEAR POWERPLANT MECHANIC) Glucose, POC 265(H) 70 - 199 mg/dL Comment: For Glucose values <35 mg/dl when Hematocrit is >60 mg/dl,the test may not accurately detect significant hypoglycemia,and testing in the Laboratory should be considered if clinically indicated. Blood 09/16/2024 8:12 PM NUCLEAR POWERPLANT MECHANIC 09/16/2024 8:12 PM NUCLEAR POWERPLANT MECHANIC Elida Vigil DO LAB POCT ORDERABLES - DEVICE Final Result Performing Organization Address [facility] de Phone Number [facility] [address] [facility] [employer] [place] [address] * (ABNORMAL) POCT glucose (09/16/2024 4:04 PM NUCLEAR POWERPLANT MECHANIC) Glucose, POC 310(H) 70 - 199 mg/dL Comment: For Glucose values <35 mg/dl when Hematocrit is >60 mg/dl,the test may not accurately detect significant hypoglycemia,and testing in the Laboratory should be considered if clinically indicated. Blood 09/16/2024 4:04 PM NUCLEAR POWERPLANT MECHANIC 09/16/2024 4:04 PM NUCLEAR POWERPLANT MECHANIC Elida Winsome Vigil DO LAB POCT ORDERABLES - DEVICE Final Result Performing Organization Address [facility] Co de Phone Number [facility] [address] [facility] [employer] [place] [address] * (ABNORMAL) POCT glucose (09/16/2024 12:27 PM NUCLEAR POWERPLANT MECHANIC) Glucose, POC 271(H) 70 - 199 mg/dL Comment: For Glucose values <35 mg/dl when Hematocrit is >60 mg/dl,the test may not accurately detect significant hypoglycemia,and testing in the Laboratory should be considered if clinically indicated. Blood 09/16/2024 12:2 7 PM NUCLEAR POWERPLANT MECHANIC 09/16/2024 12:27 PM NUCLEAR POWERPLANT MECHANIC us Elidaflorence Gusmanrice Musa DO LAB POCT ORDERABLES - DEVICE Final Result [facility] [address] Department [place] [address] * US Vein Duplex Lower Extremity Bilateral Complete (09/16/2024 11:24 AM NUCLEAR POWERPLANT MECHANIC) Anatomical Region Laterality Modality Vascular Bilateral Ultrasound 09/16/2024 3:48 PM NUCLEAR POWERPLANT MECHANIC Impressions 09/16/2024 3:48 PM NUCLEAR POWERPLANT MECHANIC 1. This study does not demonstrate evidence of deep vein thrombosis in the right lower extremity. None 2. This study does not demonstrate evidence of deep vein thrombosis in the left lower extremity. None 3. Note: Small isolated thrombi may be difficult to visualize, especially in the calf veins. Electronically signed by: Kwaku Tolentino M.D. Narrative 09/16/2024 3:48 PM NUCLEAR POWERPLANT MECHANIC Lower Extremity Vein Duplex Bilateral DATE: 09/16/2024 [...] by: Kwaku Tolentino M.D. Flo Villagran MD [facility] US PROCEDURES Final Resu lt * AR INSJ NON-TUNNELED CENTRAL VENOUS CATH AGE 4 YR/> (09/16/2024 8:53 AM NUCLEAR POWERPLANT MECHANIC) Narrative Hugh Shanks PA - 09/16/2024 8:53 AM NUCLEAR POWERPLANT MECHANIC Hugh Shanks PA 09/16/2024 8:54 AM Midline Date/Time: 09/16/2024 8:53 AM Performed by: Hugh Shanks PA Authorized by: Hugh Shanks PA [place] Protocol: RN Notified of Procedure: yes Informed consent: Risks, benefits, alternatives discussed and patient/outbound sales representative/guardian agrees and accepts Patient's stated name/ [...] or other items are accounted for: yes Hugh VALERIO IN CLINIC/BEDSIDE ORDER JAROD Final Result * Blood culture Blood (09/16/2024 8:53 AM NUCLEAR POWERPLANT MECHANIC) Report Final Report: No growth Blood 09/16/2024 8:53 AM NUCLEAR POWERPLANT MECHANIC 09/16/2024 8:56 AM NUCLEAR POWERPLANT MECHANIC William [facility] - 09/21/2024 1:01 PM NUCLEAR POWERPLANT MECHANIC From a different site than #1. Interpretive [...] organism identification may be performed using the flipClass Blood Culture Identification panel. This assay detects microbial DNA in a blood culture broth. This assay has been cleared by the [facility] Food and Drug Administration and its performance characteristics have been verified by the [facility] Microbiology Laboratory. Interpretive data was last revised on September 11, 2022. [facility] MICROBIOLOGY - GEN ERAL ORDERABLES Final Result Performing Organization Address [facility] Co de Phone Number [facility] [address] [employer] [place] [address] * Blood culture Blood (09/16/2024 8:45 AM NUCLEAR POWERPLANT MECHANIC) Report Final Report: No growth Blood 09/16/2024 8:45 AM NUCLEAR POWERPLANT MECHANIC 09/16/2024 8:56 AM NUCLEAR POWERPLANT MECHANIC Narrative [facility] - 09/21/2024 1:01 PM NUCLEAR POWERPLANT MECHANIC Interpretive Data 1. Blood cultures are incubated and monitored continuously for 5 days (120 hours). The first negative report is issued within 24 hours of receipt in the laboratory. 2. All positive cultures are resulted and called to physicians/care providers as soon as they are detected. 3. A rapid molecular test for organism identification may be performed using the flipClass Blood Culture Identification panel. This assay detects microbial DNA in a blood culture broth. This assay has been cleared by the [facility] Food and Drug Administration and its performance characteristics have been verified by the [facility] Microbiology Laboratory. Interpretive data was last revised on September 11, 2022. [facility] MICROBIOLOGY - GEN ERAL ORDERABLES Final Result Performing Organization Address [facility] Co de Phone Number [facility] [address] [place] [address] * (ABNORMAL) POCT glucose (09/16/2024 7:33 AM NUCLEAR POWERPLANT MECHANIC) Glucose, POC 232(H) 70 - 199 mg/dL Comment: For Glucose values <35 mg/dl when Hematocrit is >60 mg/dl,the test may not accurately detect significant hypoglycemia,and testing in the Laboratory should be considered if clinically indicated. Blood 09/16/2024 7:33 AM NUCLEAR POWERPLANT MECHANIC 09/16/2024 7:33 AM NUCLEAR POWERPLANT MECHANIC Flo Villagran MD LAB POCT ORDERABLES - DEVICE Final Result Performing Organization Address [facility] de Phone Number [facility] [address] [employer] [place], [place] [id number] * (ABNORMAL) CBC with auto differential (09/16/2024 5:30 AM NUCLEAR POWERPLANT MECHANIC) [facility] WBC 5.4 3.8 - 9.9 K/cumm Hgb 8.6(L) 11.9 - 15.5 g/dL [facility] Hct 28.2(L) 35.6 - 45.5 % [facility] Plt 81(L) 150 - 400 K/cumm [facility] MPV 13.9(H) 9.1 - 12.3 fL [facility] RBC 3.01(L) 3.90 - 5.20 M/cumm [facility] MCV 93.7 81.3 - 96.4 fL [facility] MCH 28.6 27.1 - 33.3 pg [facility] MCHC 30.5(L) 32.3 - 35.7 g/dL [facility] RDW CV 14.9 11.1 - 14.9 % [facility] RDW SD 51.3(H) 35.7 - 48.1 fL [facility] NRBC abs 0.00 0.00 - 0.01 K/cumm [facility] Blood 09/16/2024 5:30 AM NUCLEAR POWERPLANT MECHANIC 09/16/2024 5:39 AM NUCLEAR POWERPLANT MECHANIC Flo Villagran MD LAB BLOOD ORDERABLES Final R esult Performing Organization Address [facility]/ZIP Co de Phone Number [facility] [address] [facility] [employer] [place] [address] * (ABNORMAL) Manual Differential (09/16/2024 5:30 AM NUCLEAR POWERPLANT MECHANIC) [facility] Differential Manual Cells Counted 116 [facility] Neutrophil abs 4.4 1.5 - 6.5 K/cumm [facility] Imm gran abs 0.0 0.0 - 0.1 K/cumm [facility] Lymphocyte abs 0.6(L) 0.8 - 3.3 K/cumm [facility] Monocyte abs 0.3 0.2 - 0.8 K/cumm [facility] Eosinophil abs 0.0 0.0 - 0.5 K/cumm [facility] Neutrophil pct 81.0 % [facility] Comment: Interpretive Data Percent cell count reference ranges are not reported, since discordance with absolute values may lead to misinterpretation of CBC data. Current Interpretive Data was last revised on 2017. Lymphocyte pct 12.1 % [facility] Comment: Interpretive Data Percent cell count reference ranges are not reported, since discordance with absolute values may lead to misinterpretation of CBC data. Current Interpretive Data was last revised on 2017. Monocyte pct 6.0 % [facility] Comment: Interpretive Data Percent cell count reference ranges are not reported, since discordance with absolute values may lead to misinterpretation of CBC data. Current Interpretive Data was last revised on 2017. Eosinophil pct 0.9 % [facility] Comment: Interpretive Data Percent cell count reference ranges are not reported, since discordance with absolute values may lead to misinterpretation of CBC data. Current Interpretive Data was last revised on 2017. RBC morphology Present(A) [facility] Hypochromasia 3-7/HPF(A) [facility] Anisocytosis Slight(A) [facility] Microcytes 3-7/HPF(A) [facility] Morphology scrn See Comment [facility] Comment:PLT: Giant platelets present Blood 09/16/2024 5:30 AM NUCLEAR POWERPLANT MECHANIC 09/16/2024 5:39 AM NUCLEAR POWERPLANT MECHANIC us Flo Villagran MD LAB BLOOD ORDERABLES Final R esult [facility] [address] Department [place] [employer] [place] [address] * POCT glucose (09/16/2024 5:23 AM NUCLEAR POWERPLANT MECHANIC) Glucose, POC 178 70 - 199 mg/dL Comment: For Glucose values <35 mg/dl when Hematocrit is >60 mg/dl,the test may not accurately detect significant hypoglycemia,and testing in the Laboratory should be considered if clinically indicated. Blood 09/16/2024 5:23 AM NUCLEAR POWERPLANT MECHANIC 09/16/2024 5:23 AM NUCLEAR POWERPLANT MECHANIC Flo Villagran MD LAB POCT ORDERABLES - DEVICE Final Result [facility] [address] Department [place] [address] * X-ray chest 1 view (09/16/2024 4:37 AM NUCLEAR POWERPLANT MECHANIC) Anatomical Region Laterality Modality Body, Chest N/A Computed Radiogr aphy 09/16/2024 7:29 AM NUCLEAR POWERPLANT MECHANIC Impressions 09/16/2024 7:29 AM NUCLEAR POWERPLANT MECHANIC Endotracheal tube with tip approximately 3.6 cm superior to jessenia. Gastric tube extends inferior to the [id number] the study, below the GE junction. There are heterogeneous left mid lung and bibasilar lung opacities appear not significantly changed from prior. There is no pneumothorax or definite pleural effusion. Heart and mediastinum are unchanged. Electronically signed by: Abeba Castellano M.D. Narrative 09/16/2024 7:29 AM NUCLEAR POWERPLANT MECHANIC EXAMINATION: 1 view chest radiograph COMPARISON: 09/15/2024 INDICATION: ET Tube For endotracheal tube position Procedure Note Abeba Castellano MD - 09/16/2024 EXAMINATION: 1 view chest radiograph COMPARISON: 09/15/2024 INDICATION: ET Tube For endotracheal tube position IMPRESSION: Endotracheal tube with tip approximately 3.6 cm superior to jessenia. Gastric tube extends inferior to the [id number] the study, below the GE junction. There are heterogeneous left mid lung and bibasilar lung opacities appear not significantly changed from prior. There is no pneumothorax or definite pleural effusion. Heart and mediastinum are unchanged. Electronically signed by: Abeba Castellano M.D. us Flo Villagran MD IMG XR PROCEDURES Final Resu lt * (ABNORMAL) eGFR (09/16/2024 4:05 AM NUCLEAR POWERPLANT MECHANIC) eGFR 33(L) >=60 mL/min/1. 73 m2 Comment: [...] last reviewed 2021. Blood 09/16/2024 4:05 AM NUCLEAR POWERPLANT MECHANIC 09/16/2024 4:12 AM NUCLEAR POWERPLANT MECHANIC Flo Villagran MD LAB BLOOD ORDERABLES Final R esult [facility] [address] Department [place] [address] * Blood culture Blood (09/16/2024 4:05 AM NUCLEAR POWERPLANT MECHANIC) Report Final Report: No growth Blood 09/16/2024 4:05 AM NUCLEAR POWERPLANT MECHANIC 09/16/2024 4:38 AM NUCLEAR POWERPLANT MECHANIC Narrative [facility] - 09/21/2024 7:01 AM NUCLEAR POWERPLANT MECHANIC Interpretive Data 1. Blood cultures are incubated and monitored continuously for 5 days (120 hours). The first negative report is issued within 24 hours of receipt in the laboratory. 2. All positive cultures are resulted and called to physicians/care providers as soon as they are detected. 3. A rapid molecular test for organism identification may be performed using the flipClass Blood Culture Identification panel. This assay detects microbial DNA in a blood culture broth. This assay has been cleared by the [place] Food and Drug Administration and its performance characteristics have been verified by the [facility]. Interpretive data was last revised on September 11, 2022. Flo Villagran MD LAB MICROBIOLOGY - GENERAL O RDERABLES Final Result Performing Organization Address [facility] Co de Phone Number [facility] [address] [place] [employer] [place] [address] * (ABNORMAL) Triglycerides (09/16/2024 4:05 AM NUCLEAR POWERPLANT MECHANIC) Triglycerides 876(H) <=149 mg/dL Comment: Interpretive Data [...] revised on 2018. Blood 09/16/2024 4:05 AM NUCLEAR POWERPLANT MECHANIC 09/16/2024 4:05 AM NUCLEAR POWERPLANT MECHANIC Flo Villagran MD LAB BLOOD ORDERABLES Final R esult Performing Organization Address [facility] Co de Phone Number [facility] [address] Department [employer] [place], [place] [phone] * Magnesium (09/16/2024 4:05 AM NUCLEAR POWERPLANT MECHANIC) Pathologist [facility] Magnesium 2.2 1.4 - 2.5 mg/dL Blood 09/16/2024 4:05 AM NUCLEAR POWERPLANT MECHANIC 09/16/2024 4:12 AM NUCLEAR POWERPLANT MECHANIC us Flo Villagran MD LAB BLOOD ORDERABLES Final R esult [facility] [address] Department [place] [address] * (ABNORMAL) Renal function panel (09/16/2024 4:05 AM NUCLEAR POWERPLANT MECHANIC) [facility] Sodium 139 135 - 145 mmol/L Potassium, pl 3.3 3.3 - 4.9 mmol/L [facility] Chloride 107 97 - 110 mmol/L [facility] CO2 19(L) 22 - 32 mmol/L [facility] Anion gap 13 2 - 15 mmol/L [facility] BUN 47(H) 6 - 25 mg/dL [facility] Creatinine 1.85(H) 0.60 - 1.10 mg/dL [facility] Glucose 137 70 - 199 mg/dL [facility] Comment: Interpretive Data Fasting glucose >/= 126 [...] 2022. Calcium 7.8(L) 8.5 - 10.3 mg/dL [facility] Phosphorus, pl 2.8 2.3 - 4.5 mg/dL [facility] Albumin 2.0(L) 3.5 - 5.0 g/dL [facility] Blood 09/16/2024 4:05 AM NUCLEAR POWERPLANT MECHANIC 09/16/2024 4:12 AM NUCLEAR POWERPLANT MECHANIC Flo Villagran MD LAB BLOOD ORDERABLES Final R esult Performing Organization Address [facility] Co de Phone Number [facility] [address] Department [place] [employer] [place] [address] * POCT glucose (09/16/2024 3:45 AM NUCLEAR POWERPLANT MECHANIC) [facility] Signature Glucose, POC 137 70 - 199 mg/dL Comment: For Glucose values <35 mg/dl when Hematocrit is >60 mg/dl,the test may not accurately detect significant hypoglycemia,and testing in the Laboratory should be considered if clinically indicated. Blood 09/16/2024 3:45 AM NUCLEAR POWERPLANT MECHANIC 09/16/2024 3:45 AM NUCLEAR POWERPLANT MECHANIC Flo Villagran MD LAB POCT ORDERABLES - DEVICE Final Result Performing Organization Address [facility] de Phone Number [facility] [address] Department [place] [address] * MRI Brain WO Contrast (09/16/2024 1:48 AM NUCLEAR POWERPLANT MECHANIC) Anatomical Region Laterality Modality Head and Neck N/A Magnetic Resonan ce 09/15/2024 10:4 0 PM NUCLEAR POWERPLANT MECHANIC Impressions 09/16/2024 12:11 PM NUCLEAR POWERPLANT MECHANIC No acute intracranial abnormality seen given motion limitations. For the purposes of quality assurance nurse, this study was initially interpreted by teleradiology. There is no significant discrepancy. Dictated by: Hugh Zelaya M.D. The radiology attending physician has personally reviewed this study, and had reviewed and/or edited this written report and agrees with it. Electronically signed by: Matthew Alonso MD, PHD Narrative 09/16/2024 12:11 PM NUCLEAR POWERPLANT MECHANIC EXAMINATION: Magnetic resonance imaging (MRI) of the [...] given motion limitations. For the purposes of quality assurance nurse, this study was initially interpreted by teleradiology. There is no significant discrepancy. Dictated by: Hugh Zelaya M.D. The radiology attending physician has personally reviewed this study, and had reviewed and/or edited this written report and agrees with it. Electronically signed by: Matthew Alonso MD, PHD Flo Villagran MD IMG MRI PROCEDURES Final Res ult * POCT glucose (09/16/2024 1:06 AM NUCLEAR POWERPLANT MECHANIC) Glucose, POC 156 70 - 199 mg/dL Comment: For Glucose values <35 mg/dl when Hematocrit is >60 mg/dl,the test may not accurately detect significant hypoglycemia,and testing in the Laboratory should be considered if clinically indicated. Blood 09/16/2024 1:06 AM NUCLEAR POWERPLANT MECHANIC 09/16/2024 1:06 AM NUCLEAR POWERPLANT MECHANIC Flo Villagran MD LAB POCT ORDERABLES - DEVICE Final Result Performing Organization Address [facility] Co de Phone Number [facility] [address] [facility] [employer] [place] [address] * POCT glucose (09/16/2024 12:01 AM NUCLEAR POWERPLANT MECHANIC) Glucose, POC 155 70 - 199 mg/dL Comment: For Glucose values <35 mg/dl when Hematocrit is >60 mg/dl,the test may not accurately detect significant hypoglycemia,and testing in the Laboratory should be considered if clinically indicated. Blood 09/16/2024 12:0 1 AM NUCLEAR POWERPLANT MECHANIC 09/16/2024 12:01 AM NUCLEAR POWERPLANT MECHANIC Flo Villagran MD LAB POCT ORDERABLES - DEVICE Final Result Performing Organization Address [facility] Co de Phone Number [facility] [address] [facility] [employer] [place] [address] * POCT glucose (09/15/2024 9:09 PM NUCLEAR POWERPLANT MECHANIC) Glucose, POC 166 70 - 199 mg/dL Comment: For Glucose values <35 mg/dl when Hematocrit is >60 mg/dl,the test may not accurately detect significant hypoglycemia,and testing in the Laboratory should be considered if clinically indicated. Blood 09/15/2024 9:09 PM NUCLEAR POWERPLANT MECHANIC 09/15/2024 9:09 PM NUCLEAR POWERPLANT MECHANIC Flo Villagran MD LAB POCT ORDERABLES - DEVICE Final Result Performing Organization Address [facility] Co de Phone Number [facility] [address] [facility] [employer] [place] [address] * POCT glucose (09/15/2024 7:41 PM NUCLEAR POWERPLANT MECHANIC) Glucose, POC 140 70 - 199 mg/dL Comment: For Glucose values <35 mg/dl when Hematocrit is >60 mg/dl,the test may not accurately detect significant hypoglycemia,and testing in the Laboratory should be considered if clinically indicated. Blood 09/15/2024 7:41 PM NUCLEAR POWERPLANT MECHANIC 09/15/2024 7:41 PM NUCLEAR POWERPLANT MECHANIC Flo Villagran MD LAB POCT ORDERABLES - DEVICE Final Result Performing Organization Address [facility] de Phone Number [facility] [address] [facility] [place] [employer] [place] [address] * POCT glucose (09/15/2024 5:12 PM NUCLEAR POWERPLANT MECHANIC) Glucose, POC 140 70 - 199 mg/dL Comment: For Glucose values <35 mg/dl when Hematocrit is >60 mg/dl,the test may not accurately detect significant hypoglycemia,and testing in the Laboratory should be considered if clinically indicated. Blood 09/15/2024 5:12 PM NUCLEAR POWERPLANT MECHANIC 09/15/2024 5:12 PM NUCLEAR POWERPLANT MECHANIC Flo Villagran MD LAB POCT ORDERABLES - DEVICE Final Result Performing Organization Address [facility] Co de Phone Number [facility] [address] [facility] [place] [employer] [place] [address] * POCT glucose (09/15/2024 3:05 PM NUCLEAR POWERPLANT MECHANIC) Glucose, POC 117 70 - 199 mg/dL Comment: For Glucose values <35 mg/dl when Hematocrit is >60 mg/dl,the test may not accurately detect significant hypoglycemia,and testing in the Laboratory should be considered if clinically indicated. Blood 09/15/2024 3:05 PM NUCLEAR POWERPLANT MECHANIC 09/15/2024 3:05 PM NUCLEAR POWERPLANT MECHANIC Flo Villagran MD LAB POCT ORDERABLES - DEVICE Final Result Performing Organization Address [facility] de Phone Number [facility] [address] Department [place] [address] * (ABNORMAL) Aerobic culture and gram stain Sputum Sputum (09/15/2024 1:57 PM NUCLEAR POWERPLANT MECHANIC) Direct Specimen Exam Stain: Moderate polymorphonuclear leukocytes seen. Many Gram Positive Cocci Report Final Report: Heavy growth of: Staphylococcus aureus, methicillin susceptible Light growth normal sukhdev (.) [facility] Organism STAPHYLOCOCCUS AUREUS, METHICILLIN SUSCEPTIBLE [facility] Sputum (Sputum) 09/15/2024 1 :57 PM NUCLEAR POWERPLANT MECHANIC 09/15/2024 2:10 PM NUCLEAR POWERPLANT MECHANIC Narrative Organism Antibiotic Method Susceptibility Staphylococcus aureus, [...] O RDERABLES Final Result Performing Organization Address [facility] Co de Phone Number [facility] [address] Department [place] [address] * TRANSESOPHAGEAL ECHO (DEMI) W DOPPLER/CF WO CONTRAST (09/15/2024 1:43 PM NUCLEAR POWERPLANT MECHANIC) LV EF 55-60 % CONS SCIMAGE Anatomical Region Laterality Modality Ultrasound 09/15/2024 12:4 5 PM NUCLEAR POWERPLANT MECHANIC Narrative 09/15/2024 5:05 PM NUCLEAR POWERPLANT MECHANIC [facility] [address] 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 Electronically Signed By: Nilson Dubose [facility] Card 09/15/2024 5:05:10 PM NUCLEAR POWERPLANT MECHANIC Procedure Note Nilson Dubose MD - 09/15/2024 [facility] [address] [place] [address] TRANSESOPHAGEAL ECHOCARDIOGRAM Patient Name: BROOKE MARSHALL : 1975 (48y 8m) Gender: F Study Date: 09/15/2024 12:45:30 PM Ht(Inch): 65 Wt(Lb): 202.01 BSA: 2.05 Truck Service Technician: Location: [id number] Order Provider: NILSON DUBOSE BMI: 33.61 BP: [...] intracardiac vegetation. Electronically Signed By: Nilson Dubose [facility] Card 09/15/2024 5:05:10 PM NUCLEAR POWERPLANT MECHANIC Nilson Dubose MD CV ECHO PROCEDURES Final Result * POCT glucose (09/15/2024 1:05 PM NUCLEAR POWERPLANT MECHANIC) [facility] Signature Glucose, POC 151 70 - 199 mg/dL Comment: For Glucose values <35 mg/dl when Hematocrit is >60 mg/dl,the test may not accurately detect significant hypoglycemia,and testing in the Laboratory should be considered if clinically indicated. Blood 09/15/2024 1:05 PM NUCLEAR POWERPLANT MECHANIC 09/15/2024 1:05 PM NUCLEAR POWERPLANT MECHANIC us Flo Villagran MD LAB POCT ORDERABLES - DEVICE Final Result [facility] [address] Department [place] [address] * X-ray chest 1 view (09/15/2024 11:41 AM NUCLEAR POWERPLANT MECHANIC) Anatomical Region Laterality Modality Body, Chest N/A Computed Radiogr aphy 09/15/2024 12:0 0 PM NUCLEAR POWERPLANT MECHANIC Addenda Addendum by Cira Mancilla MD on 09/15/2024 1:17 PM NUCLEAR POWERPLANT MECHANIC Communicated to Dr. Villagran who confirmed that the tube has been pulled back. Dr. Mancilla on 09/15/2024 at 1:15pm. Electronically signed by: Cira Mancilla M.D. Impressions 09/15/2024 12:00 PM NUCLEAR POWERPLANT MECHANIC FINDINGS and IMPRESSION: Endotracheal tube terminates in the right bronchus, recommend withdrawal by about 6 cm. Feeding tube courses below the imaged [id number], past the GE junction. Increased airspace opacities in the left lung and increased prominence of right upper perihilar airspace opacities may represent progressive pneumonia, to be correlated clinically. Electronically signed by: Cira Mancilla M.D. Narrative 09/15/2024 12:00 PM NUCLEAR POWERPLANT MECHANIC EXAMINATION: XR CHEST 1 VIEW COMPARISON: 09/15/2024 HISTORY: For endotracheal tube position Procedure Note Cira Mancilla MD - 09/15/2024 EXAMINATION: XR CHEST 1 VIEW COMPARISON: 09/15/2024 HISTORY: For endotracheal tube position IMPRESSION: FINDINGS and IMPRESSION: Endotracheal tube terminates in the right bronchus, recommend withdrawal by about 6 cm. Feeding tube courses below the imaged [id number], past the GE junction. Increased airspace opacities in the left lung and increased prominence of right upper perihilar airspace opacities may represent progressive pneumonia, to be correlated clinically. Electronically signed by: Cira Mancilla M.D. Flo Villagran MD IMG XR PROCEDURES Edited Res ult - Final * (ABNORMAL) Blood gas, arterial (09/15/2024 11:34 AM NUCLEAR POWERPLANT MECHANIC) pH, Art 7.32(L) 7.35 - 7.45 PCO2, Arterial 48(H) 35 - 45 mmHg [facility] PO2, Arterial 264(H) 83 - 108 mmHg [facility] HCO3 Art (Calculated) 25 20 - 30 mmol/L [facility] BE, art -2 mmol/L [facility] Comment: Interpretive Data No Reference Range Established Current Interpretive Data was last revised on 2017 O2 Sat Art (Calculated) 100(H) 94 - 98 % [facility] Blood 09/15/2024 11:3 4 AM NUCLEAR POWERPLANT MECHANIC 09/15/2024 11:36 AM NUCLEAR POWERPLANT MECHANIC us Flo Villagran MD LAB BLOOD ORDERABLES Final R esult Performing Organization Address [facility] Co de Phone Number [facility] [address] Department [employer] [place], [place] [id number] * POCT glucose (09/15/2024 11:07 AM NUCLEAR POWERPLANT MECHANIC) Pathologist [facility] Glucose, POC 183 70 - 199 mg/dL Comment: For Glucose values <35 mg/dl when Hematocrit is >60 mg/dl,the test may not accurately detect significant hypoglycemia,and testing in the Laboratory should be considered if clinically indicated. Blood 09/15/2024 11:0 7 AM NUCLEAR POWERPLANT MECHANIC 09/15/2024 11:07 AM NUCLEAR POWERPLANT MECHANIC us Flo Villagran MD LAB POCT ORDERABLES - DEVICE Final Result Performing Organization Address City/[facility] Co de Phone Number [facility] [address] [facility] [employer] [place], [place] [id number] * INTUBATION (09/15/2024 10:31 AM NUCLEAR POWERPLANT MECHANIC) Narrative Flo Villagran MD - 09/15/2024 10:31 AM NUCLEAR POWERPLANT MECHANIC Flo Villagran MD 09/15/2024 11:11 AM Intubation [...] and CXR. Ventilator circuit connected to ET. Flo Villagran MD IN CLINIC/BEDSIDE ORDERABLES Edited Result - Final * (ABNORMAL) POCT glucose (09/15/2024 9:16 AM NUCLEAR POWERPLANT MECHANIC) [facility] Glucose, POC 200(H) 70 - 199 mg/dL Comment: For Glucose values <35 mg/dl when Hematocrit is >60 mg/dl,the test may not accurately detect significant hypoglycemia,and testing in the Laboratory should be considered if clinically indicated. Blood 09/15/2024 9:16 AM NUCLEAR POWERPLANT MECHANIC 09/15/2024 9:16 AM NUCLEAR POWERPLANT MECHANIC Flo Villagran MD LAB POCT ORDERABLES - DEVICE Final Result Performing Organization Address [facility] de Phone Number [facility] [address] [employer] [place] [address] * POCT glucose (09/15/2024 7:06 AM NUCLEAR POWERPLANT MECHANIC) [facility] Glucose, POC 186 70 - 199 mg/dL Comment: For Glucose values <35 mg/dl when Hematocrit is >60 mg/dl,the test may not accurately detect significant hypoglycemia,and testing in the Laboratory should be considered if clinically indicated. Blood 09/15/2024 7:06 AM NUCLEAR POWERPLANT MECHANIC 09/15/2024 7:06 AM NUCLEAR POWERPLANT MECHANIC Flo Villagran MD LAB POCT ORDERABLES - DEVICE Final Result Performing Organization Address [facility] Co de Phone Number [facility] [address] Department [place] [employer] [place] [address] * POCT glucose (09/15/2024 5:27 AM NUCLEAR POWERPLANT MECHANIC) Glucose, POC 187 70 - 199 mg/dL Comment: For Glucose values <35 mg/dl when Hematocrit is >60 mg/dl,the test may not accurately detect significant hypoglycemia,and testing in the Laboratory should be considered if clinically indicated. Blood 09/15/2024 5:27 AM NUCLEAR POWERPLANT MECHANIC 09/15/2024 5:27 AM NUCLEAR POWERPLANT MECHANIC Flo Villagran MD LAB POCT ORDERABLES - DEVICE Final Result Performing Organization Address [facility] de Phone Number [facility] [address] Department [place] [address] * POCT glucose (09/15/2024 3:51 AM NUCLEAR POWERPLANT MECHANIC) Glucose, POC 189 70 - 199 mg/dL Comment: For Glucose values <35 mg/dl when Hematocrit is >60 mg/dl,the test may not accurately detect significant hypoglycemia,and testing in the Laboratory should be considered if clinically indicated. Blood 09/15/2024 3:51 AM NUCLEAR POWERPLANT MECHANIC 09/15/2024 3:51 AM NUCLEAR POWERPLANT MECHANIC Flo Villagran MD LAB POCT ORDERABLES - DEVICE Final Result Performing Organization Address [facility] de Phone Number [facility] [address] Department [place] [address] * (ABNORMAL) aPTT (09/15/2024 3:48 AM NUCLEAR POWERPLANT MECHANIC) aPTT 49(H) 28 - 38 sec Comment: Interpretive Data Heparin therapeutic range: 66.0 - 100.0 seconds. Range based on correlation with therapeutic heparin activity range of 0.3 - 0.7 Units/mL. Current interpretive data was last revised on 2023. Blood 09/15/2024 3:48 AM NUCLEAR POWERPLANT MECHANIC 09/15/2024 3:52 AM NUCLEAR POWERPLANT MECHANIC Abeab Ash MD LAB BLOOD ORDERABLES Final R esult Performing Organization Address [facility]/ZIP Co de Phone Number [facility] [address] Department [place] [address] * XR Chest 1 View (09/15/2024 3:41 AM NUCLEAR POWERPLANT MECHANIC) Anatomical Region Laterality Modality Body, Chest N/A Computed Radiogr aphy 09/15/2024 7:33 AM NUCLEAR POWERPLANT MECHANIC Impressions 09/15/2024 7:33 AM NUCLEAR POWERPLANT MECHANIC Comparison is made to 09/14/2024. A nasogastric tube tip is located with diaphragm, not included [id number]. There is slightly improving aeration within the left midlung and lung base which may represent improving pneumonia. The right mid to upper lung there is a persistent area of nodular consolidation which is favored to be infectious as well. No pleural effusion. No pneumothorax. Stable heart size. Electronically signed by: Ruiz Coles M.D. Narrative 09/15/2024 7:33 AM NUCLEAR POWERPLANT MECHANIC Examination: Chest 1 view Procedure Note Ruiz Coles MD - 09/15/2024 Examination: Chest 1 view IMPRESSION: Comparison is made to 09/14/2024. A nasogastric tube tip is located with diaphragm, not included [id number]. There is slightly improving aeration within the [...] lt * (ABNORMAL) eGFR (09/15/2024 1:50 AM NUCLEAR POWERPLANT MECHANIC) eGFR 40(L) >=60 mL/min/1. 73 m2 Comment: [...] data was last reviewed 2021. Blood 09/15/2024 1:5 0 AM NUCLEAR POWERPLANT MECHANIC 09/15/2024 2:27 AM NUCLEAR POWERPLANT MECHANIC us Flo Villagran MD LAB BLOOD ORDERABLES Final R esult [facility] [address] Department [place] [address] * (ABNORMAL) CBC without differential (09/15/2024 1:50 AM NUCLEAR POWERPLANT MECHANIC) WBC 5.0 3.8 - 9.9 K/cumm Hgb 9.9(L) 11.9 - 15.5 g/dL [facility] Hct 31.5(L) 35.6 - 45.5 % [facility] Plt 67(L) 150 - 400 K/cumm [facility] Comment:Automated count conf irmed by smear review. MPV 13.3(H) 9.1 - 12.3 fL [facility] RBC 3.39(L) 3.90 - 5.20 M/cumm [facility] MCV 92.9 81.3 - 96.4 fL [facility] MCH 29.2 27.1 - 33.3 pg [facility] MCHC 31.4(L) 32.3 - 35.7 g/dL [facility] RDW CV 15.0(H) 11.1 - 14.9 % [facility] RDW SD 51.5(H) 35.7 - 48.1 fL [facility] NRBC abs 0.00 0.00 - 0.01 K/cumm [facility] Blood 09/15/2024 1:50 AM NUCLEAR POWERPLANT MECHANIC 09/15/2024 2:27 AM NUCLEAR POWERPLANT MECHANIC Flo Villagran MD LAB BLOOD ORDERABLES Final R esult Performing Organization Address City/[facility] Co de Phone Number [facility] [address] [facility] [employer] [place], [place] [phone] * (ABNORMAL) Phosphorus (09/15/2024 1:50 AM NUCLEAR POWERPLANT MECHANIC) Phosphorus, pl 1.7(L) 2.3 - 4.5 mg/dL Blood 09/15/2024 1:50 AM NUCLEAR POWERPLANT MECHANIC 09/15/2024 2:27 AM NUCLEAR POWERPLANT MECHANIC Flo Villagran MD LAB BLOOD ORDERABLES Final R esult Performing Organization Address [facility] Co de Phone Number [facility] [address] Department of [employer] [place], [place] [phone] * Magnesium (09/15/2024 1:50 AM NUCLEAR POWERPLANT MECHANIC) Magnesium 2.4 1.4 - 2.5 mg/dL Comment:Reviewed Blood 09/15/2024 1:50 AM NUCLEAR POWERPLANT MECHANIC 09/15/2024 2:27 AM NUCLEAR POWERPLANT MECHANIC Flo Villagran MD LAB BLOOD ORDERABLES Final R esult Performing Organization Address City/[facility] Co de Phone Number [facility] [address] [facility] [employer] [place], [place] [phone] * Bilirubin, direct (09/15/2024 1:50 AM NUCLEAR POWERPLANT MECHANIC) Bilirubin, direct 0.3 0.1 - 0.3 mg/dL Blood 09/15/2024 1:50 AM NUCLEAR POWERPLANT MECHANIC 09/15/2024 2:27 AM NUCLEAR POWERPLANT MECHANIC us Flo Villagran MD LAB BLOOD ORDERABLES Final R esult [facility] [address] Department [place] [address] * (ABNORMAL) Comprehensive metabolic panel (09/15/2024 1:50 AM NUCLEAR POWERPLANT MECHANIC) Sodium 147(H) 135 - 145 mmol/L Potassium, pl 3.1(L) 3.3 - 4.9 mmol/L [facility] Chloride 110 97 - 110 mmol/L [facility] CO2 24 22 - 32 mmol/L [facility] Anion gap 13 2 - 15 mmol/L [facility] BUN 44(H) 6 - 25 mg/dL [facility] Creatinine 1.56(H) 0.60 - 1.10 mg/dL [facility] Glucose 179 70 - 199 mg/dL [facility] Comment: Interpretive Data Fasting glucose >/= 126 [...] 2022. Calcium 8.5 8.5 - 10.3 mg/dL [facility] Bilirubin, total 0.5 0.1 - 1.2 mg/dL [facility] Protein, pl 5.6(L) 6.5 - 8.5 g/dL [facility] Albumin 2.4(L) 3.5 - 5.0 g/dL [facility] Alk phos 77 40 - 130 Units/L [facility] ALT 23 7 - 45 Units/L [facility] AST 35 10 - 45 Units/L [facility] Blood 09/15/2024 1:50 AM NUCLEAR POWERPLANT MECHANIC 09/15/2024 2:27 AM NUCLEAR POWERPLANT MECHANIC Flo Villagran MD LAB BLOOD ORDERABLES Final R esult Performing Organization Address [facility] de Phone Number [facility] [address] [facility] [employer] [place], [place] [phone] * POCT glucose (09/15/2024 12:53 AM NUCLEAR POWERPLANT MECHANIC) Glucose, POC 166 70 - 199 mg/dL Comment: For Glucose values <35 mg/dl when Hematocrit is >60 mg/dl,the test may not accurately detect significant hypoglycemia,and testing in the Laboratory should be considered if clinically indicated. Blood 09/15/2024 12:5 3 AM NUCLEAR POWERPLANT MECHANIC 09/15/2024 12:53 AM NUCLEAR POWERPLANT MECHANIC Flo Villagran MD LAB POCT ORDERABLES - DEVICE Final Result Performing Organization Address [facility] de Phone Number [facility] [address] [facility] [employer] [place], [place] [phone] * POCT glucose (09/14/2024 11:15 PM NUCLEAR POWERPLANT MECHANIC) Glucose, POC 178 70 - 199 mg/dL Comment: For Glucose values <35 mg/dl when Hematocrit is >60 mg/dl,the test may not accurately detect significant hypoglycemia,and testing in the Laboratory should be considered if clinically indicated. Blood 09/14/2024 11:1 5 PM NUCLEAR POWERPLANT MECHANIC 09/14/2024 11:15 PM NUCLEAR POWERPLANT MECHANIC Flo Villagran MD LAB POCT ORDERABLES - DEVICE Final Result Performing Organization Address [facility] de Phone Number [facility] [address] [facility] [employer] [place], [place] [phone] * (ABNORMAL) aPTT (09/14/2024 9:19 PM NUCLEAR POWERPLANT MECHANIC) aPTT 57(H) 28 - 38 sec Comment: Interpretive Data Heparin therapeutic range: 66.0 - 100.0 seconds. Range based on correlation with therapeutic heparin activity range of 0.3 - 0.7 Units/mL. Current interpretive data was last revised on 2023. Blood 09/14/2024 9:19 PM NUCLEAR POWERPLANT MECHANIC 09/14/2024 9:19 PM NUCLEAR POWERPLANT MECHANIC Flo Villagran MD LAB BLOOD ORDERABLES Final R esult Performing Organization Address [facility] de Phone Number [facility] [address] [place] [employer] [place] [address] * POCT glucose (09/14/2024 9:16 PM NUCLEAR POWERPLANT MECHANIC) Glucose, POC 162 70 - 199 mg/dL Comment: For Glucose values <35 mg/dl when Hematocrit is >60 mg/dl,the test may not accurately detect significant hypoglycemia,and testing in the Laboratory should be considered if clinically indicated. Blood 09/14/2024 9:16 PM NUCLEAR POWERPLANT MECHANIC 09/14/2024 9:16 PM NUCLEAR POWERPLANT MECHANIC Result [facility] Flo Villagran MD LAB POCT ORDERABLES - DEVICE Final Result Performing Organization Address [facility] de Phone Number [facility] [address] [place] [employer] [place] [address] * POCT glucose (09/14/2024 7:20 PM NUCLEAR POWERPLANT MECHANIC) Glucose, POC 171 70 - 199 mg/dL Comment: For Glucose values <35 mg/dl when Hematocrit is >60 mg/dl,the test may not accurately detect significant hypoglycemia,and testing in the Laboratory should be considered if clinically indicated. Blood 09/14/2024 7:20 PM NUCLEAR POWERPLANT MECHANIC 09/14/2024 7:20 PM NUCLEAR POWERPLANT MECHANIC Flo Villagran MD LAB POCT ORDERABLES - DEVICE Final Result Performing Organization Address [facility] Co de Phone Number [facility] [address] [facility] [employer] [place], [place] [phone] * POCT glucose (09/14/2024 6:16 PM NUCLEAR POWERPLANT MECHANIC) Glucose, POC 183 70 - 199 mg/dL Comment: For Glucose values <35 mg/dl when Hematocrit is >60 mg/dl,the test may not accurately detect significant hypoglycemia,and testing in the Laboratory should be considered if clinically indicated. Blood 09/14/2024 6:16 PM NUCLEAR POWERPLANT MECHANIC 09/14/2024 6:16 PM NUCLEAR POWERPLANT MECHANIC Flo Villagran MD LAB POCT ORDERABLES - DEVICE Final Result Performing Organization Address [facility] Co de Phone Number [facility] [address] [facility] [employer] [place] [address] * POCT glucose (09/14/2024 4:55 PM NUCLEAR POWERPLANT MECHANIC) Glucose, POC 186 70 - 199 mg/dL Comment: For Glucose values <35 mg/dl when Hematocrit is >60 mg/dl,the test may not accurately detect significant hypoglycemia,and testing in the Laboratory should be considered if clinically indicated. Blood 09/14/2024 4:55 PM NUCLEAR POWERPLANT MECHANIC 09/14/2024 4:55 PM NUCLEAR POWERPLANT MECHANIC Flo Villagran MD LAB POCT ORDERABLES - DEVICE Final Result Performing Organization Address [facility] Co de Phone Number [facility] [address] [facility] [employer] [place] [address] * POCT glucose (09/14/2024 4:10 PM NUCLEAR POWERPLANT MECHANIC) Glucose, POC 179 70 - 199 mg/dL Comment: For Glucose values <35 mg/dl when Hematocrit is >60 mg/dl,the test may not accurately detect significant hypoglycemia,and testing in the Laboratory should be considered if clinically indicated. Blood 09/14/2024 4:10 PM NUCLEAR POWERPLANT MECHANIC 09/14/2024 4:10 PM NUCLEAR POWERPLANT MECHANIC Flo Villagran MD LAB POCT ORDERABLES - DEVICE Final Result Performing Organization Address [facility] Co de Phone Number [facility] [address] Department [employer] [place] [address] * POCT glucose (09/14/2024 3:03 PM NUCLEAR POWERPLANT MECHANIC) Glucose, POC 179 70 - 199 mg/dL Comment: For Glucose values <35 mg/dl when Hematocrit is >60 mg/dl,the test may not accurately detect significant hypoglycemia,and testing in the Laboratory should be considered if clinically indicated. Blood 09/14/2024 3:03 PM NUCLEAR POWERPLANT MECHANIC 09/14/2024 3:03 PM NUCLEAR POWERPLANT MECHANIC Flo Villagran MD LAB POCT ORDERABLES - DEVICE Final Result Performing Organization Address [facility] de Phone Number [facility] [address] Department [place] [employer] [place] [address] * (ABNORMAL) eGFR (09/14/2024 1:05 PM NUCLEAR POWERPLANT MECHANIC) [facility] eGFR 41(L) >=60 mL/min/1. 73 m2 Comment: [...] last reviewed 2021. Blood 09/14/2024 1:05 PM NUCLEAR POWERPLANT MECHANIC 09/14/2024 1:20 PM NUCLEAR POWERPLANT MECHANIC Flo Villagran MD LAB BLOOD ORDERABLES Final R esult Performing Organization Address [facility] de Phone Number [facility] [address] [facility] [employer] [place] [address] * (ABNORMAL) aPTT (09/14/2024 1:05 PM NUCLEAR POWERPLANT MECHANIC) Pathologist [facility] aPTT 112(H) 28 - 38 sec Comment: Interpretive Data Heparin therapeutic range: 66.0 - 100.0 seconds. Range based on correlation with therapeutic heparin activity range of 0.3 - 0.7 Units/mL. Current interpretive data was last revised on 2023. Blood 09/14/2024 1:05 PM NUCLEAR POWERPLANT MECHANIC 09/14/2024 1:19 PM NUCLEAR POWERPLANT MECHANIC Flo Villagran MD LAB BLOOD ORDERABLES Final R esult Performing Organization Address [facility] de Phone Number [facility] [address] Department [place] [employer] [place] [address] * (ABNORMAL) Renal function panel (09/14/2024 1:05 PM NUCLEAR POWERPLANT MECHANIC) [facility] Sodium 152(H) 135 - 145 mmol/L Potassium, pl 3.3 3.3 - 4.9 mmol/L [facility] Chloride 115(H) 97 - 110 mmol/L [facility] CO2 25 22 - 32 mmol/L [facility] Anion gap 12 2 - 15 mmol/L [facility] BUN 45(H) 6 - 25 mg/dL [facility] Creatinine 1.54(H) 0.60 - 1.10 mg/dL [facility] Glucose 177 70 - 199 mg/dL [facility] Comment: Interpretive Data Fasting glucose >/= 126 [...] 2022. Calcium 8.8 8.5 - 10.3 mg/dL [facility] Phosphorus, pl 2.6 2.3 - 4.5 mg/dL [facility] Albumin 2.5(L) 3.5 - 5.0 g/dL [facility] Blood 09/14/2024 1:05 PM NUCLEAR POWERPLANT MECHANIC 09/14/2024 1:20 PM NUCLEAR POWERPLANT MECHANIC Flo Villagran MD LAB BLOOD ORDERABLES Final R esult Performing Organization Address [facility] Co de Phone Number [facility] [address] Department [place] [employer] [place] [address] * POCT glucose (09/14/2024 12:55 PM NUCLEAR POWERPLANT MECHANIC) Glucose, POC 168 70 - 199 mg/dL Comment: For Glucose values <35 mg/dl when Hematocrit is >60 mg/dl,the test may not accurately detect significant hypoglycemia,and testing in the Laboratory should be considered if clinically indicated. Blood 09/14/2024 12:5 5 PM NUCLEAR POWERPLANT MECHANIC 09/14/2024 12:55 PM NUCLEAR POWERPLANT MECHANIC Flo Villagran MD LAB POCT ORDERABLES - DEVICE Final Result Performing Organization Address [facility] Co de Phone Number [facility] [address] Department [place] [employer] [place] [address] * POCT glucose (09/14/2024 12:01 PM NUCLEAR POWERPLANT MECHANIC) Glucose, POC 170 70 - 199 mg/dL Comment: For Glucose values <35 mg/dl when Hematocrit is >60 mg/dl,the test may not accurately detect significant hypoglycemia,and testing in the Laboratory should be considered if clinically indicated. Blood 09/14/2024 12:0 1 PM NUCLEAR POWERPLANT MECHANIC 09/14/2024 12:01 PM NUCLEAR POWERPLANT MECHANIC Flo Villagran MD LAB POCT ORDERABLES - DEVICE Final Result Performing Organization Address [facility] de Phone Number [facility] [address] Department [employer] [place] [address] * POCT glucose (09/14/2024 11:05 AM NUCLEAR POWERPLANT MECHANIC) Glucose, POC 188 70 - 199 mg/dL Comment: For Glucose values <35 mg/dl when Hematocrit is >60 mg/dl,the test may not accurately detect significant hypoglycemia,and testing in the Laboratory should be considered if clinically indicated. Blood 09/14/2024 11:0 5 AM NUCLEAR POWERPLANT MECHANIC 09/14/2024 11:05 AM NUCLEAR POWERPLANT MECHANIC Flo Villagran MD LAB POCT ORDERABLES - DEVICE Final Result Performing Organization Address [facility] de Phone Number [facility] [address] [facility] [place] [employer] [place] [address] * POCT glucose (09/14/2024 10:04 AM NUCLEAR POWERPLANT MECHANIC) Pathologist [facility] Glucose, POC 195 70 - 199 mg/dL Comment: For Glucose values <35 mg/dl when Hematocrit is >60 mg/dl,the test may not accurately detect significant hypoglycemia,and testing in the Laboratory should be considered if clinically indicated. Blood 09/14/2024 10:0 4 AM NUCLEAR POWERPLANT MECHANIC 09/14/2024 10:04 AM NUCLEAR POWERPLANT MECHANIC Flo Villagran MD LAB POCT ORDERABLES - DEVICE Final Result Performing Organization Address [facility] de Phone Number [facility] [address] Department [employer] [place], [place] [phone] * (ABNORMAL) Blood culture Blood (09/14/2024 9:42 AM NUCLEAR POWERPLANT MECHANIC) [facility] Direct Specimen Exam Stain: Gram Positive Cocci in clusters Test result called to and read back by Ana Maria Grier RN on 09/15/2024 05:37:49 by [place]. Report Final Report: Staphylococcus aureus, methicillin susceptible Susceptibility reported on this organism on previous culture [id number] (.) [facility] Organism STAPHYLOCOCCUS AUREUS, METHICILLIN SUSCEPTIBLE [facility] Blood 09/14/2024 9:42 AM NUCLEAR POWERPLANT MECHANIC 09/14/2024 9:50 AM NUCLEAR POWERPLANT MECHANIC Narrative [facility] - 09/16/2024 10:13 AM NUCLEAR POWERPLANT MECHANIC From a different site than #1. Interpretive [...] organism identification may be performed using the flipClass Blood Culture Identification panel. This assay detects microbial DNA in a blood culture broth. This assay has been cleared by the [place] Food and Drug Administration and its performance characteristics have been verified by the [facility]. Interpretive data was last revised on September 11, 2022. Flo Villagran MD LAB MICROBIOLOGY - GENERAL O RDERABLES Final Result [facility] [address] Department [place] [address] * Blood culture Blood (09/14/2024 9:42 AM NUCLEAR POWERPLANT MECHANIC) Report Final Report: No growth Blood 09/14/2024 9:42 AM NUCLEAR POWERPLANT MECHANIC 09/14/2024 12:44 PM NUCLEAR POWERPLANT MECHANIC Narrative [facility] - 09/19/2024 1:00 PM NUCLEAR POWERPLANT MECHANIC Interpretive Data 1. Blood cultures are incubated and monitored continuously for 5 days (120 hours). The first negative report is issued within 24 hours of receipt in the laboratory. 2. All positive cultures are resulted and called to physicians/care providers as soon as they are detected. 3. A rapid molecular test for organism identification may be performed using the flipClass Blood Culture Identification panel. This assay detects microbial DNA in a blood culture broth. This assay has been cleared by the [place] Food and Drug Administration and its performance characteristics have been verified by the [facility]. Interpretive data was last revised on September 11, 2022. Flo Villagran MD LAB MICROBIOLOGY - GENERAL O RDERABLES Final Result Performing Organization Address [facility] Co de Phone Number [facility] [address] [employer] [address] * (ABNORMAL) POCT glucose (09/14/2024 8:56 AM NUCLEAR POWERPLANT MECHANIC) Glucose, POC 228(H) 70 - 199 mg/dL Comment: For Glucose values <35 mg/dl when Hematocrit is >60 mg/dl,the test may not accurately detect significant hypoglycemia,and testing in the Laboratory should be considered if clinically indicated. Blood 09/14/2024 8:56 AM NUCLEAR POWERPLANT MECHANIC 09/14/2024 8:56 AM NUCLEAR POWERPLANT MECHANIC Result [facility] Flo Villagran MD LAB POCT ORDERABLES - DEVICE Final Result Performing Organization Address [facility] Co de Phone Number [facility] [address] [employer] [place] [address] * (ABNORMAL) Blood gas, arterial (09/14/2024 8:08 AM NUCLEAR POWERPLANT MECHANIC) pH, Art 7.34(L) 7.35 - 7.45 PCO2, Arterial 45 35 - 45 mmHg [facility] PO2, Arterial 79(L) 83 - 108 mmHg [facility] HCO3 Art (Calculated) 24 20 - 30 mmol/L [facility] BE, art -2 mmol/L [facility] Comment: Interpretive Data No Reference Range Established Current Interpretive Data was last revised on 2017 O2 Sat Art (Calculated) 95 94 - 98 % [facility] Blood 09/14/2024 8:08 AM NUCLEAR POWERPLANT MECHANIC 09/14/2024 8:11 AM NUCLEAR POWERPLANT MECHANIC Flo Villagran MD LAB BLOOD ORDERABLES Final R esult Performing Organization Address [facility] Co de Phone Number [facility] [address] [facility] [employer] [place] [address] * (ABNORMAL) POCT glucose (09/14/2024 7:50 AM NUCLEAR POWERPLANT MECHANIC) Glucose, POC 235(H) 70 - 199 mg/dL Comment: For Glucose values <35 mg/dl when Hematocrit is >60 mg/dl,the test may not accurately detect significant hypoglycemia,and testing in the Laboratory should be considered if clinically indicated. Blood 09/14/2024 7:50 AM NUCLEAR POWERPLANT MECHANIC 09/14/2024 7:50 AM NUCLEAR POWERPLANT MECHANIC us Flo Villagran MD LAB POCT ORDERABLES - DEVICE Final Result Performing Organization Address [facility] Co de Phone Number [facility] [address] [facility] [employer] [place], [place] [phone] * (ABNORMAL) aPTT (09/14/2024 6:06 AM NUCLEAR POWERPLANT MECHANIC) aPTT >150(C) 28 - 38 sec Comment: Critical result called to and read back by Tatiana Sutton (RN) on 09/14/2024 07:20:52 NUCLEAR POWERPLANT MECHANIC to [id number]. Specimen integrity checked. No clot Interpretive Data Heparin therapeutic range: 66.0 - 100.0 seconds. Range based on correlation with therapeutic heparin activity range of 0.3 - 0.7 Units/mL. Current interpretive data was last revised on 2023. Blood 09/14/2024 6:06 AM NUCLEAR POWERPLANT MECHANIC 09/14/2024 6:23 AM NUCLEAR POWERPLANT MECHANIC Aebba Ash MD LAB BLOOD ORDERABLES Final R esult Performing Organization Address [facility] Co de Phone Number [facility] [address] [facility] [employer] [place], [place] [phone] * (ABNORMAL) POCT glucose (09/14/2024 4:10 AM NUCLEAR POWERPLANT MECHANIC) [facility] Glucose, POC 301(H) 70 - 199 mg/dL Comment: For Glucose values <35 mg/dl when Hematocrit is >60 mg/dl,the test may not accurately detect significant hypoglycemia,and testing in the Laboratory should be considered if clinically indicated. Blood 09/14/2024 4:10 AM NUCLEAR POWERPLANT MECHANIC 09/14/2024 4:10 AM NUCLEAR POWERPLANT MECHANIC Flo Villagran MD LAB POCT ORDERABLES - DEVICE Final Result [facility] [address] Department [place] [address] * XR Chest 1 View (09/14/2024 3:10 AM NUCLEAR POWERPLANT MECHANIC) Anatomical Region Laterality Modality Body, Chest N/A Computed Radiogr aphy 09/14/2024 7:30 AM NUCLEAR POWERPLANT MECHANIC Impressions 09/14/2024 7:30 AM NUCLEAR POWERPLANT MECHANIC Comparison is made to prior chest radiograph dated 09/13/2024. Feeding tube terminates in the stomach. There are increased patchy opacities in the left greater than right lung bases. Findings are most consistent with pneumonia, possibly related to aspiration. No pleural effusion. No pneumothorax. Stable heart size. Electronically signed by: Pippa Sin M.D. Narrative 09/14/2024 7:30 AM NUCLEAR POWERPLANT MECHANIC EXAMINATION: XR CHEST 1 VIEW Procedure Note [...] lt * (ABNORMAL) eGFR (09/14/2024 1:59 AM NUCLEAR POWERPLANT MECHANIC) eGFR 38(L) >=60 mL/min/1. 73 m2 Comment: [...] last reviewed 2021. Blood 09/14/2024 1:59 AM NUCLEAR POWERPLANT MECHANIC 09/14/2024 2:14 AM NUCLEAR POWERPLANT MECHANIC us Flo Villagran MD LAB BLOOD ORDERABLES Final R esult [facility] [address] Department of Laboratories [place], [place] [id number] * (ABNORMAL) Manual Differential (09/14/2024 1:59 AM NUCLEAR POWERPLANT MECHANIC) Pathologist [facility] Cells Counted 125 Neutrophil abs 3.5 1.5 - 6.5 K/cumm [facility] Imm gran abs 0.1 0.0 - 0.1 K/cumm [facility] Lymphocyte abs 0.3(L) 0.8 - 3.3 K/cumm [facility] Monocyte abs 0.4 0.2 - 0.8 K/cumm [facility] Neutrophil pct 83.2 % [facility] Comment: Interpretive Data Percent cell count reference ranges are not reported, since discordance with absolute values may lead to misinterpretation of CBC data. Current Interpretive Data was last revised on 2017. Lymphocyte pct 6.4 % [facility] Comment: Interpretive Data Percent cell count reference ranges are not reported, since discordance with absolute values may lead to misinterpretation of CBC data. Current Interpretive Data was last revised on 2017. Monocyte pct 8.8 % [facility] Comment: Interpretive Data Percent cell count reference ranges are not reported, since discordance with absolute values may lead to misinterpretation of CBC data. Current Interpretive Data was last revised on 2017. Metamyelocyte pct 1.6(H) 0.0 - 0.0 % [facility] RBC morphology Present(A) [facility] Anisocytosis Slight(A) [facility] Poikilocytosis Moderate(A ) [facility] Echinocytes 3-7/HPF(A) [facility] Platelet estimate Decreased( A) [facility] Morphology scrn See Comment [facility] Comment:WBC: Toxic Vacuolati on present PLT: Platelet morphology normal Automated count not confirmed by smear review; See platelet estimate Blood 09/14/2024 1:59 AM NUCLEAR POWERPLANT MECHANIC 09/14/2024 2:14 AM NUCLEAR POWERPLANT MECHANIC Flo Villagran MD LAB BLOOD ORDERABLES Final R esult [facility] [address] Department [place] [address] * (ABNORMAL) CBC without differential (09/14/2024 1:59 AM NUCLEAR POWERPLANT MECHANIC) WBC 4.2 3.8 - 9.9 K/cumm Hgb 11.1(L) 11.9 - 15.5 g/dL [facility] Hct 36.5 35.6 - 45.5 % [facility] Plt 71(L) 150 - 400 K/cumm [facility] Comment:no clot MPV 12.8(H) 9.1 - 12.3 fL [facility] RBC 3.85(L) 3.90 - 5.20 M/cumm [facility] MCV 94.8 81.3 - 96.4 fL [facility] MCH 28.8 27.1 - 33.3 pg [facility] MCHC 30.4(L) 32.3 - 35.7 g/dL [facility] RDW CV 14.8 11.1 - 14.9 % [facility] RDW SD 51.8(H) 35.7 - 48.1 fL [facility] NRBC abs 0.00 0.00 - 0.01 K/cumm [facility] Blood 09/14/2024 1:59 AM NUCLEAR POWERPLANT MECHANIC 09/14/2024 2:14 AM NUCLEAR POWERPLANT MECHANIC Flo Villagran MD LAB BLOOD ORDERABLES Final R esult Performing Organization Address [facility] Co de Phone Number [facility] [address] [facility] [employer] [place], [place] [id number] * Phosphorus (09/14/2024 1:59 AM NUCLEAR POWERPLANT MECHANIC) Phosphorus, pl 4.2 2.3 - 4.5 mg/dL Comment:Reviewed Blood 09/14/2024 1:59 AM NUCLEAR POWERPLANT MECHANIC 09/14/2024 2:14 AM NUCLEAR POWERPLANT MECHANIC Flo Villagran MD LAB BLOOD ORDERABLES Final R esult Performing Organization Address [facility] Co de Phone Number [facility] [address] [facility] [employer] [place] [address] * Magnesium (09/14/2024 1:59 AM NUCLEAR POWERPLANT MECHANIC) Magnesium 1.8 1.4 - 2.5 mg/dL Blood 09/14/2024 1:59 AM NUCLEAR POWERPLANT MECHANIC 09/14/2024 2:14 AM NUCLEAR POWERPLANT MECHANIC Flo Villagran MD LAB BLOOD ORDERABLES Final R esult Performing Organization Address City/[facility] Co de Phone Number [facility] [address] [facility] [employer] [place] [address] * Bilirubin, direct (09/14/2024 1:59 AM NUCLEAR POWERPLANT MECHANIC) Pathologist [facility] Bilirubin, direct 0.3 0.1 - 0.3 mg/dL Blood 09/14/2024 1:59 AM NUCLEAR POWERPLANT MECHANIC 09/14/2024 2:14 AM NUCLEAR POWERPLANT MECHANIC Flo Villagran MD LAB BLOOD ORDERABLES Final R esult [facility] [address] Department [place] [address] * (ABNORMAL) Comprehensive metabolic panel (09/14/2024 1:59 AM NUCLEAR POWERPLANT MECHANIC) Pathologist [facility] Sodium 149(H) 135 - 145 mmol/L Potassium, pl 3.8 3.3 - 4.9 mmol/L [facility] Chloride 112(H) 97 - 110 mmol/L [facility] CO2 20(L) 22 - 32 mmol/L [facility] Anion gap 17(H) 2 - 15 mmol/L [facility] BUN 44(H) 6 - 25 mg/dL [facility] Creatinine 1.63(H) 0.60 - 1.10 mg/dL [facility] Glucose 312(H) 70 - 199 mg/dL [facility] Comment: Interpretive Data Fasting glucose >/= 126 [...] 2022. Calcium 8.5 8.5 - 10.3 mg/dL [facility] Bilirubin, total 0.6 0.1 - 1.2 mg/dL [facility] Protein, pl 6.0(L) 6.5 - 8.5 g/dL [facility] Albumin 2.8(L) 3.5 - 5.0 g/dL [facility] Alk phos 96 40 - 130 Units/L [facility] ALT 28 7 - 45 Units/L [facility] AST 51(H) 10 - 45 Units/L [facility] Blood 09/14/2024 1:59 AM NUCLEAR POWERPLANT MECHANIC 09/14/2024 2:14 AM NUCLEAR POWERPLANT MECHANIC Flo Villagran MD LAB BLOOD ORDERABLES Final R esult Performing Organization Address [facility] de Phone Number [facility] [address] Department of Laboratories [place], [place] [id number] * (ABNORMAL) POCT glucose (09/14/2024 12:41 AM NUCLEAR POWERPLANT MECHANIC) Pathologist [facility] Glucose, POC 266(H) 70 - 199 mg/dL Comment: For Glucose values <35 mg/dl when Hematocrit is >60 mg/dl,the test may not accurately detect significant hypoglycemia,and testing in the Laboratory should be considered if clinically indicated. Blood 09/14/2024 12:4 1 AM NUCLEAR POWERPLANT MECHANIC 09/14/2024 12:41 AM NUCLEAR POWERPLANT MECHANIC Flo Villagran MD LAB POCT ORDERABLES - DEVICE Final Result Performing Organization Address [facility] de Phone Number [facility] [address] Department [place] [employer] [place] [address] * (ABNORMAL) aPTT (09/13/2024 9:58 PM NUCLEAR POWERPLANT MECHANIC) aPTT 148(C) 28 - 38 sec Comment: spoke with Linda Jean (RN) 09/13/2024 22:44:39 NUCLEAR POWERPLANT MECHANIC [id number] Interpretive Data Heparin therapeutic range: 66.0 - 100.0 seconds. Range based on correlation with therapeutic heparin activity range of 0.3 - 0.7 Units/mL. Current interpretive data was last revised on 2023. Blood 09/13/2024 9:58 PM NUCLEAR POWERPLANT MECHANIC 09/13/2024 10:02 PM NUCLEAR POWERPLANT MECHANIC us Flo Villagran MD LAB BLOOD ORDERABLES Final R esult [facility] [address] Department [place] [address] * XR Abdomen 2 Views Erect and or Decubitus (09/13/2024 9:41 PM NUCLEAR POWERPLANT MECHANIC) Anatomical Region Laterality Modality Body, Abdomen N/A Computed Radiogr aphy 09/14/2024 9:14 AM NUCLEAR POWERPLANT MECHANIC Impressions 09/14/2024 9:14 AM NUCLEAR POWERPLANT MECHANIC Supine and upright views of the abdomen [...] Alfonso Taylor M.D. Narrative 09/14/2024 9:14 AM NUCLEAR POWERPLANT MECHANIC EXAMINATION: XR ABDOMEN ERECT AND OR DECUBITUS [...] radiograph. Electronically signed by: Alfonso Taylor M.D. Flo Villagran MD IMG XR PROCEDURES Final Resu lt * (ABNORMAL) POCT glucose (09/13/2024 7:57 PM NUCLEAR POWERPLANT MECHANIC) Pathologist [facility] Glucose, POC 249(H) 70 - 199 mg/dL Comment: For Glucose values <35 mg/dl when Hematocrit is >60 mg/dl,the test may not accurately detect significant hypoglycemia,and testing in the Laboratory should be considered if clinically indicated. Blood 09/13/2024 7:57 PM NUCLEAR POWERPLANT MECHANIC 09/13/2024 7:57 PM NUCLEAR POWERPLANT MECHANIC Flo Villagran MD LAB POCT ORDERABLES - DEVICE Final Result Performing Organization Address [facility]/ZIP Co de Phone Number [facility] [address] [place] [employer] [place] [address] * (ABNORMAL) eGFR (09/13/2024 6:33 PM NUCLEAR POWERPLANT MECHANIC) [facility] eGFR 47(L) >=60 mL/min/1. 73 m2 Comment: [...] last reviewed 2021. Blood 09/13/2024 6:33 PM NUCLEAR POWERPLANT MECHANIC 09/13/2024 6:41 PM NUCLEAR POWERPLANT MECHANIC Flo Villagran MD LAB BLOOD ORDERABLES Final R esult Performing Organization Address City/[facility]/ZIP Co de Phone Number [facility] [address] [place] [employer] [place] [address] * (ABNORMAL) Renal function panel (09/13/2024 6:33 PM NUCLEAR POWERPLANT MECHANIC) Sodium 146(H) 135 - 145 mmol/L Potassium, pl 3.6 3.3 - 4.9 mmol/L [facility] Chloride 112(H) 97 - 110 mmol/L [facility] CO2 20(L) 22 - 32 mmol/L [facility] Anion gap 14 2 - 15 mmol/L [facility] BUN 42(H) 6 - 25 mg/dL [facility] Creatinine 1.38(H) 0.60 - 1.10 mg/dL [facility] Glucose 182 70 - 199 mg/dL [facility] Comment: Interpretive Data Fasting glucose >/= 126 [...] 2022. Calcium 7.9(L) 8.5 - 10.3 mg/dL [facility] Phosphorus, pl 2.1(L) 2.3 - 4.5 mg/dL [facility] Albumin 2.4(L) 3.5 - 5.0 g/dL [facility] Blood 09/13/2024 6:33 PM NUCLEAR POWERPLANT MECHANIC 09/13/2024 6:41 PM NUCLEAR POWERPLANT MECHANIC Flo Villagran MD LAB BLOOD ORDERABLES Final R esult [facility] [address] Department [place] [address] * ECG 12 lead (09/13/2024 5:24 PM NUCLEAR POWERPLANT MECHANIC) 09/13/2024 5:24 PM NUCLEAR POWERPLANT MECHANIC Narrative [facility] - 09/14/2024 12:02 AM NUCLEAR POWERPLANT MECHANIC Vent Rate: 136 bpm RR Interval: 440 msec AR Interval: 122 msec QRS Duration: 86 msec QT Interval: 330 msec QTC Interval: 410 msec P-R-T [place]: 57 - -14 - 116 degrees IMPRESSION: SINUS TACHYCARDIA ST DEVIATION AND MODERATE T-WAVE ABNORMALITY, CONSIDER LATERAL ISCHEMIA ABNORMAL ECG Electronically Signed By: Nilson Dubose [facility] Card Flo Villagran MD ECG ORDERABLES Final Result Performing Organization Address [facility] Co de Phone Number [facility] * POCT glucose (09/13/2024 4:29 PM NUCLEAR POWERPLANT MECHANIC) Glucose, POC 160 70 - 199 mg/dL Comment: For Glucose values <35 mg/dl when Hematocrit is >60 mg/dl,the test may not accurately detect significant hypoglycemia,and testing in the Laboratory should be considered if clinically indicated. Blood 09/13/2024 4:29 PM NUCLEAR POWERPLANT MECHANIC 09/13/2024 4:29 PM NUCLEAR POWERPLANT MECHANIC Flo Villagran MD LAB POCT ORDERABLES - DEVICE Final Result Performing Organization Address [facility] de Phone Number [facility] [address] [place] [employer] [place] [address] * POCT glucose (09/13/2024 3:18 PM NUCLEAR POWERPLANT MECHANIC) Glucose, POC 92 70 - 199 mg/dL Comment: For Glucose values <35 mg/dl when Hematocrit is >60 mg/dl,the test may not accurately detect significant hypoglycemia,and testing in the Laboratory should be considered if clinically indicated. Blood 09/13/2024 3:18 PM NUCLEAR POWERPLANT MECHANIC 09/13/2024 3:18 PM NUCLEAR POWERPLANT MECHANIC Flo Villagran MD LAB POCT ORDERABLES - DEVICE Final Result Performing Organization Address [facility] Co de Phone Number [facility] [address] [facility] [employer] [place] [address] * POCT glucose (09/13/2024 2:29 PM NUCLEAR POWERPLANT MECHANIC) Glucose, POC 102 70 - 199 mg/dL Comment: For Glucose values <35 mg/dl when Hematocrit is >60 mg/dl,the test may not accurately detect significant hypoglycemia,and testing in the Laboratory should be considered if clinically indicated. Blood 09/13/2024 2:29 PM NUCLEAR POWERPLANT MECHANIC 09/13/2024 2:29 PM NUCLEAR POWERPLANT MECHANIC Flo Villagran MD LAB POCT ORDERABLES - DEVICE Final Result Performing Organization Address [facility] de Phone Number [facility] [address] [facility] [employer] [place] [address] * (ABNORMAL) aPTT (09/13/2024 2:28 PM NUCLEAR POWERPLANT MECHANIC) [facility] aPTT 102(H) 28 - 38 sec Comment: Interpretive Data Heparin therapeutic range: 66.0 - 100.0 seconds. Range based on correlation with therapeutic heparin activity range of 0.3 - 0.7 Units/mL. Current interpretive data was last revised on 2023. Blood 09/13/2024 2:28 PM NUCLEAR POWERPLANT MECHANIC 09/13/2024 2:36 PM NUCLEAR POWERPLANT MECHANIC Flo Villagran MD LAB BLOOD ORDERABLES Final R esult Performing Organization Address [facility] Co de Phone Number [facility] [address] Department [employer] [place] [address] * POCT glucose (09/13/2024 1:10 PM NUCLEAR POWERPLANT MECHANIC) Glucose, POC 117 70 - 199 mg/dL Comment: For Glucose values <35 mg/dl when Hematocrit is >60 mg/dl,the test may not accurately detect significant hypoglycemia,and testing in the Laboratory should be considered if clinically indicated. Blood 09/13/2024 1:10 PM NUCLEAR POWERPLANT MECHANIC 09/13/2024 1:10 PM NUCLEAR POWERPLANT MECHANIC us Flo Villagran MD LAB POCT ORDERABLES - DEVICE Final Result Performing Organization Address [facility] Co de Phone Number [facility] [address] Department [place] [employer] [place] [address] * (ABNORMAL) eGFR (09/13/2024 12:22 PM NUCLEAR POWERPLANT MECHANIC) Pathologist [facility] eGFR 46(L) >=60 mL/min/1. 73 m2 Comment: [...] reviewed 2021. Blood 09/13/2024 12:2 2 PM NUCLEAR POWERPLANT MECHANIC 09/13/2024 12:40 PM NUCLEAR POWERPLANT MECHANIC us Abeba Ash MD LAB BLOOD ORDERABLES Final R esult Performing Organization Address [facility] Co de Phone Number [facility] [address] Department of [employer] [place], [place] [phone] * Phosphorus (09/13/2024 12:22 PM NUCLEAR POWERPLANT MECHANIC) Pathologist [facility] Phosphorus, pl 2.3 2.3 - 4.5 mg/dL Blood 09/13/2024 12:2 2 PM NUCLEAR POWERPLANT MECHANIC 09/13/2024 12:40 PM NUCLEAR POWERPLANT MECHANIC Abeba Ash MD LAB BLOOD ORDERABLES Final R esult Performing Organization Address City/[facility]/ZIP Co de Phone Number [facility] [address] [place] [employer] [place] [address] * Magnesium (09/13/2024 12:22 PM NUCLEAR POWERPLANT MECHANIC) [facility] Magnesium 1.9 1.4 - 2.5 mg/dL Blood 09/13/2024 12:2 2 PM NUCLEAR POWERPLANT MECHANIC 09/13/2024 12:40 PM NUCLEAR POWERPLANT MECHANIC Abeba Ash MD LAB BLOOD ORDERABLES Final R bernieult Performing Organization Address [facility] Co de Phone Number [facility] [address] [employer] [place] [address] * (ABNORMAL) Basic metabolic panel (09/13/2024 12:22 PM NUCLEAR POWERPLANT MECHANIC) [facility] Sodium 146(H) 135 - 145 mmol/L Potassium, pl 3.5 3.3 - 4.9 mmol/L [facility] Chloride 111(H) 97 - 110 mmol/L [facility] CO2 22 22 - 32 mmol/L [facility] Anion gap 13 2 - 15 mmol/L [facility] BUN 47(H) 6 - 25 mg/dL [facility] Creatinine 1.41(H) 0.60 - 1.10 mg/dL [facility] Glucose 141 70 - 199 mg/dL [facility] Comment: Interpretive Data Fasting glucose >/= 126 [...] 2022. Calcium 8.6 8.5 - 10.3 mg/dL [facility] Blood 09/13/2024 12:2 2 PM NUCLEAR POWERPLANT MECHANIC 09/13/2024 12:40 PM NUCLEAR POWERPLANT MECHANIC Abeba Ash MD LAB BLOOD ORDERABLES Final R esult Performing Organization Address [facility] Co de Phone Number [facility] [address] Department [place] [address] * POCT glucose (09/13/2024 12:20 PM NUCLEAR POWERPLANT MECHANIC) [facility] Signature Glucose, POC 142 70 - 199 mg/dL Comment: For Glucose values <35 mg/dl when Hematocrit is >60 mg/dl,the test may not accurately detect significant hypoglycemia,and testing in the Laboratory should be considered if clinically indicated. Blood 09/13/2024 12:2 0 PM NUCLEAR POWERPLANT MECHANIC 09/13/2024 12:20 PM NUCLEAR POWERPLANT MECHANIC Flo Villagran MD LAB POCT ORDERABLES - DEVICE Final Result Performing Organization Address [facility] Co de Phone Number [facility] [address] Department [place] [address] * US Carotids Duplex Bilateral (09/13/2024 11:55 AM NUCLEAR POWERPLANT MECHANIC) Anatomical Region Laterality Modality Vascular Bilateral Ultrasound 09/13/2024 12:3 7 PM NUCLEAR POWERPLANT MECHANIC Impressions 09/13/2024 12:37 PM NUCLEAR POWERPLANT MECHANIC 1) There are minimal non-hemodynamic plaque formations [...] Kwaku Tolentino M.D. Narrative 09/13/2024 12:37 PM NUCLEAR POWERPLANT MECHANIC DATE:09/13/2024 10:00 AM EXAM: Duplex imaging of [...] W DOPPLER/CF W CONTRAST (09/13/2024 11:24 AM NUCLEAR POWERPLANT MECHANIC) LV EF 45-50 % CONS SCIMAGE Anatomical Region Laterality Modality Ultrasound 09/13/2024 10:2 8 AM NUCLEAR POWERPLANT MECHANIC Narrative 09/13/2024 4:50 PM NUCLEAR POWERPLANT MECHANIC [facility] [address] [place] [address] ECHOCARDIOGRAM Patient Name: BROOKE MARSHALL R : 1975 (48y 8m) Gender: F Study Date: 09/13/2024 10:28:21 AM Ht(Inch): 65 Wt(Lb): 201.94 BSA: 2.05 Truck Service Technician: MINH Location: [address] Order Provider: ABEBA ASH BMI: 33.6 BP: 111/63 Ref Provider: ABEBA ASH - PROCEDURES: Echocardiographic Report: Transthoracic Echocardiogram with 2D, M-Mode, Spectral and Color Flow Doppler examination and administration of intravenous contrast. INDICATIONS: Non ST elevation [place]. 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 INDICATIONS: Non ST elevation [place]. MEASUREMENTS: 2D/MM Value Range DopplerValue Range IVSd [...] By: Rene Nicole MD 09/13/2024 4:49:40 PM NUCLEAR POWERPLANT MECHANIC us Abeba Ash MD CV ECHO PROCEDURES Final Res ult * POCT glucose (09/13/2024 11:12 AM NUCLEAR POWERPLANT MECHANIC) [facility] Glucose, POC 149 70 - 199 mg/dL Comment: For Glucose values <35 mg/dl when Hematocrit is >60 mg/dl,the test may not accurately detect significant hypoglycemia,and testing in the Laboratory should be considered if clinically indicated. Blood 09/13/2024 11:1 2 AM NUCLEAR POWERPLANT MECHANIC 09/13/2024 11:12 AM NUCLEAR POWERPLANT MECHANIC Flo Villagran MD LAB POCT ORDERABLES - DEVICE Final Result Performing Organization Address [facility]/ZIP Co de Phone Number [facility] [address] [employer] [place] [address] * (ABNORMAL) DIC Platelet (09/13/2024 9:45 AM NUCLEAR POWERPLANT MECHANIC) [facility] Plt 96(L) 150 - 400 K/cumm Blood 09/13/2024 9:45 AM NUCLEAR POWERPLANT MECHANIC 09/13/2024 10:14 AM NUCLEAR POWERPLANT MECHANIC Flo Villagran MD LAB BLOOD ORDERABLES Final R esult Performing Organization Address [facility] Co de Phone Number [facility] [address] [employer] [place] [address] * (ABNORMAL) DIC Coagulation (09/13/2024 9:45 AM NUCLEAR POWERPLANT MECHANIC) [facility] PT DIC 10.3 10.3 - 13.7 sec INR DIC 0.95 0.90 - 1.20 [facility] PTT DIC 78(H) 28 - 38 sec [facility] Comment: Interpretive Data Heparin therapeutic range: 66.0 - 100.0 seconds. Range based on correlation with therapeutic heparin activity range of 0.3 - 0.7 Units/mL. Current interpretive data was last revised on 2023. D-Dimer 2,217(H) <=499 ng/mL FEU [facility] Comment: Interpretive data FDA approved the D-dimer, [...] 2019. Fibrinogen 620(H) 170 - 400 mg/dL [facility] Blood 09/13/2024 9:45 AM NUCLEAR POWERPLANT MECHANIC 09/13/2024 10:14 AM NUCLEAR POWERPLANT MECHANIC us Flo Villagran MD LAB BLOOD ORDERABLES Final R esult [facility] [address] Department [place] [address] * HIT Antibodies with Reflex to Serotonin Release Assay (ASHLEY) (09/13/2024 9:45 AM NUCLEAR POWERPLANT MECHANIC) [facility] HIT antibodies Negative Negative Comment: INTERPRETIVE DATA A result of >/= 1.0 U/mL is interpreted as Heparin/anti-PF4 antibody positive. A result of < 1.0 U/mL is interpreted as Heparin/anti-PF4 antibody negative. Although a positive result may indicate the presence of Heparin-associated antibodies, it does not CONFIRM the diagnosis of Heparin Induced Thrombocytopenia (HIT). Positive specimens will be sent to [facility] [facility] ([facility]) for confirmatory testing by Serotonin Release Assay (ASHLEY). Current interpretive data last reviewed 2017 Blood 09/13/2024 9:45 AM NUCLEAR POWERPLANT MECHANIC 09/13/2024 10:14 AM NUCLEAR POWERPLANT MECHANIC us Flo Villagran MD LAB BLOOD ORDERABLES Final R esult [facility] [address] Department [place] [address] * DIC Schistocytes (09/13/2024 9:45 AM NUCLEAR POWERPLANT MECHANIC) Schistocytes None Seen None Seen Blood 09/13/2024 9:45 AM NUCLEAR POWERPLANT MECHANIC 09/13/2024 10:14 AM NUCLEAR POWERPLANT MECHANIC Flo Villagran MD LAB BLOOD ORDERABLES Final R esult [facility] [address] Department [place] [address] * (ABNORMAL) Urinalysis reflex to microscopic and culture Urine (09/13/2024 9:45 AM NUCLEAR POWERPLANT MECHANIC) Color, ur Yellow Yellow Clarity, ur Turbid(A) Clear [facility] Specific gravity, ur 1.020 1.003 - 1.030 [facility] pH, urine 6.0 [facility] Comment: Interpretive Data U rine pH is affected by diet, medications, systemic acid-base disturbances, and renal tubular function. pH may affect urinary stone formation. For example, urine pH below 6.0 may help reduce the tendency for calcium phosphate stones and pH greater than 6.0 may reduce the tendency for uric acid stone formation. Source: [facility] Current Interpretive Data was last revised on 2017 Protein, ur ql 2+(A) Negative [facility] Glucose, ur ql 3+(A) Negative [facility] Ketones, ur Trace Negative [facility] Bilirubin, ur Negative Negative [facility] Blood, ur 1+(A) Negative [facility] Urobilinogen, ur <2.0 <2.0 mg/dL [facility] Nitrite, ur Negative Negative [facility] Leukocyte esterase, ur 4+(A) Negative [facility] UA reflex comment Reflex to microscopic UA will be performed. [facility] Urine 09/13/2024 9:45 AM NUCLEAR POWERPLANT MECHANIC 09/13/2024 9:45 AM NUCLEAR POWERPLANT MECHANIC Flo Villagran MD LAB MICROBIOLOGY - GENERAL O RDERABLES Final Result [facility] [address] Department [place] [address] * (ABNORMAL) Drugs of Abuse Screen, Urine without Confirmation (09/13/2024 9:45 AM NUCLEAR POWERPLANT MECHANIC) Amphetamine, ur Not Detected CutOff 500ng/mL Comment: Interpretive Data - Amphetamines: Samples containing greater than 500 ng/mL d-methamphetamine or other cross-reacting amphetamine compounds are reported as positive. Amphetamine immunoassays are subject to significant false positive rates due to cross-reactivity of non-amphetamine drugs. Confirmatory testing required for definitive results. Current Interpretive Data was last reviewed 2023. Barbiturates, ur Not Detected CutOff 200ng/mL [facility] Comment: Interpretive Data - Barbiturates: Samples containing greater than 200 ng/mL secobarbital or other cross-reacting barbiturate compounds are reported as positive. False positive and false negative results are possible. Confirmatory testing required for definitive results. Current Interpretive Data was last reviewed 2023. Benzodiazepines, ur Not Detected CutOff 100ng/mL [facility] Comment: Interpretive Data - Benzodiazepines: Samples containing greater than 100 ng/mL nordiazepam or other cross-reacting compounds are reported as positive. False positive and false negative results are possible. Confirmatory testing required for definitive results. Current Interpretive Data was last reviewed 2023. Cannabinoids, ur Not Detected CutOff 50 ng/mL [facility] Comment: Interpretive Data - Cannabinoids: Samples containing greater than 50 ng/mL delta-9 THC -COOH or other cross- reacting compounds are reported as positive. False positive and false negative results are possible. Confirmatory testing required for definitive results. Current Interpretive Data was last reviewed 2023. Cocaine, ur Not Detected CutOff 150ng/mL [facility] Comment: Interpretive Data - Cocaine: Samples containing greater than 150 ng/mL benzoylecgonine or other cross- reacting compounds are reported as positive. False positive and false negative results are possible. Confirmatory testing required for definitive results. Current Interpretive Data was last reviewed 2023. Fentanyl, Ur Screen Positive, presumptive (A) CutOff 5 ng/mL [facility] Comment: Interpretive Data - Fentanyl: Samples containing greater than 5 ng/mL norfentanyl, fentanyl, or other cross-reacting fentanyl compounds are reported as positive. False positive and false negative results are possible. Confirmatory testing required for definitive results. Current Interpretive Data was last reviewed 2023. Methadone, ur Not Detected CutOff 300ng/mL [facility] Comment: Interpretive Data - Methadone: Samples containing greater than 300 ng/mL d,l-methadone or other cross-reacting compounds are reported as positive. False positive and false negative results are possible. Confirmatory testing required for definitive results. Current Interpretive Data was last reviewed 2023. Opiates, ur Screen Positive, presumptive (A) CutOff 300ng/mL [facility] Comment: Interpretive Data - Opiates: Samples containing greater than 300 ng/mL morphine or other cross-reacting compounds are reported as positive. False positive and false negative results are possible. Confirmatory testing required for definitive results. Current Interpretive Data was last reviewed 2023. Oxycodone, ur Not Detected CutOff 100ng/mL [facility] Comment: Interpretive Data - Oxycodone: Samples containing greater than 100 ng/mL oxycodone or other cross-reacting compounds are reported as positive. False positive and false negative results are possible. Confirmatory testing required for definitive results. Current Interpretive Data was last reviewed 2023. Phencyclidine, ur Not Detected CutOff 25 ng/mL [facility] Comment: Interpretive Data - Phencyclidine: Samples containing greater than 25 ng/mL phencyclidine or other cross-reacting compounds are reported as positive. False positive and false negative results are possible. Confirmatory testing required for definitive results. Current Interpretive Data was last reviewed 2023. Urine Creatinine 90 mg/dL [facility] Comment: Interpretive Data Urine Creatinine: < 10 mg/dL is extremely dilute = or > 10 but < 20 mg/dL is dilute = or > 20 mg/dL is normal Current Interpretive Data was last revised on 2017. Urine 09/13/2024 9:45 AM NUCLEAR POWERPLANT MECHANIC 09/13/2024 10:17 AM NUCLEAR POWERPLANT MECHANIC Narrative [facility] - 09/13/2024 10:46 AM NUCLEAR POWERPLANT MECHANIC Drug of Abuse screening is performed by immunoassay for medical purposes only. This is not to be used for Pain Management purposes. Flo Villagran MD LAB URINE ORDERABLES Final R esult Performing Organization Address [facility] Co de Phone Number [facility] [address] [facility] [place] [address] * (ABNORMAL) Urinalysis, microscopic only (09/13/2024 9:45 AM NUCLEAR POWERPLANT MECHANIC) WBC, ur >50(A) 0 - 5 /HPF RBC, ur >50(A) 0 - 2 /HPF [facility] Epithelial cells, squamous, ur >50(A) 0 - 5 /HPF [facility] Comment:Suggestive of contam ination. Consider recollection by clean catch. Bacteria, ur 4+(A) [facility] Yeast, ur 4+(A) [facility] Mucous, ur Present(A) [facility] Culture Reflex Comment Reflex to urine culture will be performed. [facility] Urine 09/13/2024 9:45 AM NUCLEAR POWERPLANT MECHANIC 09/13/2024 10:17 AM NUCLEAR POWERPLANT MECHANIC Flo Villagran MD LAB URINE ORDERABLES Final R esult Performing Organization Address [facility] de Phone Number [facility] [address] [employer] [address] * (ABNORMAL) Urine culture Urine (09/13/2024 9:45 AM NUCLEAR POWERPLANT MECHANIC) Report Final Report: Greater than or equal to 100,000 colonies/ml of Lactobacillus species Susceptibility not performed on this isolate (.) Organism LACTOBACILLUS SPECIES [facility] Urine 09/13/2024 9:45 AM NUCLEAR POWERPLANT MECHANIC 09/13/2024 11:49 AM NUCLEAR POWERPLANT MECHANIC Narrative [facility] - 09/15/2024 12:40 PM NUCLEAR POWERPLANT MECHANIC Urine culture reflexed based upon urinalysis results. Flo Villagran MD LAB MICROBIOLOGY - GENERAL O RDERABLES Final Result Performing Organization Address [facility] Co de Phone Number [facility] [address] [place] [employer] [address] * Ammonia (09/13/2024 9:45 AM NUCLEAR POWERPLANT MECHANIC) Ammonia 14 <=50 mcmol/L Blood 09/13/2024 9:45 AM NUCLEAR POWERPLANT MECHANIC 09/13/2024 10:14 AM NUCLEAR POWERPLANT MECHANIC Flo Villagran MD LAB BLOOD ORDERABLES Final R esult Performing Organization Address [facility] de Phone Number [facility] [address] [place] [employer] [address] * POCT glucose (09/13/2024 9:31 AM NUCLEAR POWERPLANT MECHANIC) Glucose, POC 170 70 - 199 mg/dL Comment: For Glucose values <35 mg/dl when Hematocrit is >60 mg/dl,the test may not accurately detect significant hypoglycemia,and testing in the Laboratory should be considered if clinically indicated. Blood 09/13/2024 9:31 AM NUCLEAR POWERPLANT MECHANIC 09/13/2024 9:31 AM NUCLEAR POWERPLANT MECHANIC Abeba Ash MD LAB POCT ORDERABLES - DEVICE Final Result Performing Organization Address [facility] de Phone Number [facility] [address] [place] [employer] [address] * Lipase - Add on lab test (09/13/2024 9:25 AM NUCLEAR POWERPLANT MECHANIC) Acceptable Yes Blood 09/13/2024 9:25 AM NUCLEAR POWERPLANT MECHANIC 09/13/2024 9:25 AM NUCLEAR POWERPLANT MECHANIC Narrative [facility] - 09/13/2024 9:26 AM NUCLEAR POWERPLANT MECHANIC Name of Test->Lipase Flo Villagran MD LAB BLOOD ORDERABLES Final R esult Performing Organization Address [facility] Co de Phone Number [facility] [address] Department [place] [address] * Amylase - Add on lab test (09/13/2024 9:25 AM NUCLEAR POWERPLANT MECHANIC) Acceptable Yes Blood 09/13/2024 9:25 AM NUCLEAR POWERPLANT MECHANIC 09/13/2024 9:25 AM NUCLEAR POWERPLANT MECHANIC Narrative [facility] - 09/13/2024 9:26 AM NUCLEAR POWERPLANT MECHANIC Name of Test->Amylase us Flo Villagran MD LAB BLOOD ORDERABLES Final R esult [facility] [address] Department [place] [address] * XR Chest 1 Vw (09/13/2024 8:30 AM NUCLEAR POWERPLANT MECHANIC) Anatomical Region Laterality Modality Body, Chest N/A Computed Radiogr aphy 09/13/2024 9:34 AM NUCLEAR POWERPLANT MECHANIC Impressions 09/13/2024 9:34 AM NUCLEAR POWERPLANT MECHANIC Gastric tube tip overlies the gastric body, side port overlies the gastric antrum, possibly kinked at the side port. Patchy left retrocardiac opacities could reflect atelectasis, aspiration, or pneumonia. No pneumothorax or pleural effusion. Heart size and mediastinal contours normal Electronically signed by: Ana Luisa Benson M.D. Narrative 09/13/2024 9:34 AM NUCLEAR POWERPLANT MECHANIC EXAMINATION: Chest 1 view. HISTORY: Check tube [...] Electronically signed by: Ana Luisa Benson M.D. us Flo Villagran MD IMG XR PROCEDURES Final Resu lt * (ABNORMAL) eGFR (09/13/2024 8:11 AM NUCLEAR POWERPLANT MECHANIC) eGFR 46(L) >=60 mL/min/1. 73 m2 Comment: [...] last reviewed 2021. Blood 09/13/2024 8:11 AM NUCLEAR POWERPLANT MECHANIC 09/13/2024 8:21 AM NUCLEAR POWERPLANT MECHANIC us Abeba Ash MD LAB BLOOD ORDERABLES Final R esult Performing Organization Address [facility] Co de Phone Number [facility] [address] [place] [employer] [place] [address] * Beta-hydroxybutyrate (09/13/2024 8:11 AM NUCLEAR POWERPLANT MECHANIC) Beta-Hydroxybut yrate 0.5 <=0.5 mmol/L Blood 09/13/2024 8:11 AM NUCLEAR POWERPLANT MECHANIC 09/13/2024 8:16 AM NUCLEAR POWERPLANT MECHANIC us Abeba Ash MD LAB BLOOD ORDERABLES Final R esult Performing Organization Address City/[facility]/ZIP Co de Phone Number [facility] [address] Department [place] [employer] [place] [address] * (ABNORMAL) aPTT (09/13/2024 8:11 AM NUCLEAR POWERPLANT MECHANIC) aPTT 72(H) 28 - 38 sec Comment: Interpretive Data Heparin therapeutic range: 66.0 - 100.0 seconds. Range based on correlation with therapeutic heparin activity range of 0.3 - 0.7 Units/mL. Current interpretive data was last revised on 2023. Blood 09/13/2024 8:11 AM NUCLEAR POWERPLANT MECHANIC 09/13/2024 8:21 AM NUCLEAR POWERPLANT MECHANIC Abeba Ash MD LAB BLOOD ORDERABLES Final R esult Performing Organization Address [facility]/ZIP Co de Phone Number [facility] [address] [facility] [employer] [place] [address] * (ABNORMAL) Phosphorus (09/13/2024 8:11 AM NUCLEAR POWERPLANT MECHANIC) Pathologist [facility] Phosphorus, pl 2.1(L) 2.3 - 4.5 mg/dL Blood 09/13/2024 8:11 AM NUCLEAR POWERPLANT MECHANIC 09/13/2024 8:16 AM NUCLEAR POWERPLANT MECHANIC Abeba Ash MD LAB BLOOD ORDERABLES Final R esult Performing Organization Address [facility] Co de Phone Number [facility] [address] [facility] [place] [employer] [place] [address] * Magnesium (09/13/2024 8:11 AM NUCLEAR POWERPLANT MECHANIC) Pathologist [facility] Magnesium 1.9 1.4 - 2.5 mg/dL Blood 09/13/2024 8:11 AM NUCLEAR POWERPLANT MECHANIC 09/13/2024 8:16 AM NUCLEAR POWERPLANT MECHANIC Abeba Ash MD LAB BLOOD ORDERABLES Final R esult Performing Organization Address [facility] Co de Phone Number [facility] [address] [facility] [employer] [place] [address] * Lipase (09/13/2024 8:11 AM NUCLEAR POWERPLANT MECHANIC) Lipase 25 10 - 99 Units/L Blood 09/13/2024 8:11 AM NUCLEAR POWERPLANT MECHANIC 09/13/2024 8:21 AM NUCLEAR POWERPLANT MECHANIC Abeba Ash MD LAB BLOOD ORDERABLES Final R esult Performing Organization Address [facility] Co de Phone Number [facility] [address] [facility] [place] [employer] [place] [address] * Amylase (09/13/2024 8:11 AM NUCLEAR POWERPLANT MECHANIC) Pathologist [facility] Amylase 48 30 - 99 Units/L Blood 09/13/2024 8:11 AM NUCLEAR POWERPLANT MECHANIC 09/13/2024 8:21 AM NUCLEAR POWERPLANT MECHANIC Abeba Ash MD LAB BLOOD ORDERABLES Final R esult Performing Organization Address [facility] de Phone Number [facility] [address] [facility] [place] [employer] [place] [address] * (ABNORMAL) Basic metabolic panel (09/13/2024 8:11 AM NUCLEAR POWERPLANT MECHANIC) [facility] Sodium 147(H) 135 - 145 mmol/L Potassium, pl 3.7 3.3 - 4.9 mmol/L [facility] Chloride 112(H) 97 - 110 mmol/L [facility] CO2 21(L) 22 - 32 mmol/L [facility] Anion gap 14 2 - 15 mmol/L [facility] BUN 49(H) 6 - 25 mg/dL [facility] Creatinine 1.40(H) 0.60 - 1.10 mg/dL [facility] Glucose 147 70 - 199 mg/dL [facility] Comment: Interpretive Data Fasting glucose >/= 126 [...] 2022. Calcium 8.6 8.5 - 10.3 mg/dL [facility] Blood 09/13/2024 8:11 AM NUCLEAR POWERPLANT MECHANIC 09/13/2024 8:16 AM NUCLEAR POWERPLANT MECHANIC Abeba Ash MD LAB BLOOD ORDERABLES Final R esult Performing Organization Address [facility] de Phone Number [facility] [address] Department of [employer] [place], [place] [id number] * (ABNORMAL) Blood gas, arterial (09/13/2024 7:58 AM NUCLEAR POWERPLANT MECHANIC) pH, Art 7.38 7.35 - 7.45 PCO2, Arterial 39 35 - 45 mmHg [facility] PO2, Arterial 76(L) 83 - 108 mmHg [facility] HCO3 Art (Calculated) 23 20 - 30 mmol/L [facility] BE, art -2 mmol/L [facility] Comment: Interpretive Data No Reference Range Established Current Interpretive Data was last revised on 2017 O2 Sat Art (Calculated) 95 94 - 98 % [facility] Blood 09/13/2024 7:58 AM NUCLEAR POWERPLANT MECHANIC 09/13/2024 8:02 AM NUCLEAR POWERPLANT MECHANIC us Flo Villagran MD LAB BLOOD ORDERABLES Final R esult Performing Organization Address [facility] de Phone Number [facility] [address] Department [place] [employer] [place] [address] * POCT glucose (09/13/2024 7:54 AM NUCLEAR POWERPLANT MECHANIC) Glucose, POC 157 70 - 199 mg/dL Comment: For Glucose values <35 mg/dl when Hematocrit is >60 mg/dl,the test may not accurately detect significant hypoglycemia,and testing in the Laboratory should be considered if clinically indicated. Blood 09/13/2024 7:54 AM NUCLEAR POWERPLANT MECHANIC 09/13/2024 7:54 AM NUCLEAR POWERPLANT MECHANIC Abeba Ash MD LAB POCT ORDERABLES - DEVICE Final Result Performing Organization Address [facility] Co de Phone Number [facility] [address] [facility] [employer] [place] [address] * POCT glucose (09/13/2024 6:04 AM NUCLEAR POWERPLANT MECHANIC) [facility] Glucose, POC 149 70 - 199 mg/dL Comment: For Glucose values <35 mg/dl when Hematocrit is >60 mg/dl,the test may not accurately detect significant hypoglycemia,and testing in the Laboratory should be considered if clinically indicated. Blood 09/13/2024 6:04 AM NUCLEAR POWERPLANT MECHANIC 09/13/2024 6:04 AM NUCLEAR POWERPLANT MECHANIC Abeba Ash MD LAB POCT ORDERABLES - DEVICE Final Result Performing Organization Address [facility] de Phone Number [facility] [address] [place] [employer] [place] [address] * (ABNORMAL) Blood culture Blood (09/13/2024 5:22 AM NUCLEAR POWERPLANT MECHANIC) [facility] Direct Specimen Exam Molecular Analysis: Staphylococcus aureus, methicillin-suscep tible (MSSA) detected by the [employer] Blood Culture Identification Panel. This test does not exclude the possibility of a mixed bacterial infection. Please consider this result in the context of clinical findings and evaluate the possibility of antimicrobial de-escalation. Test result called to and read back by Ceferino Grier RN on 09/13/2024 22:28:52 by [email or web address] Direct Specimen Exam Stain: Gram Positive Cocci in clusters [facility] Report Final Report: Staphylococcus aureus, methicillin susceptible (.) [facility] Organism STAPHYLOCOCCUS AUREUS, METHICILLIN SUSCEPTIBLE [facility] Blood 09/13/2024 5:22 AM NUCLEAR POWERPLANT MECHANIC 09/13/2024 5:48 AM NUCLEAR POWERPLANT MECHANIC Narrative [facility] - 09/15/2024 7:42 AM NUCLEAR POWERPLANT MECHANIC From a different site than #1. Collection->Peripheral [...] organism identification may be performed using the [employer] Blood Culture Identification panel. This assay detects microbial DNA in a blood culture broth. This assay has been cleared by the [place] Food and Drug Administration and its performance characteristics have been verified by the [facility]. Interpretive data was last revised [...] Vancomycin (ROBERTO CARLOS) INTERPRETATION <=0.5 mcg/mL: Susceptible Abeba Ash MD LAB MICROBIOLOGY - GENERAL O RDERABLES Final Result Performing Organization Address [facility] Co de Phone Number [facility] [address] [place] [address] * POCT glucose (09/13/2024 5:06 AM NUCLEAR POWERPLANT MECHANIC) [facility], POC 152 70 - 199 mg/dL Comment: For Glucose values <35 mg/dl when Hematocrit is >60 mg/dl,the test may not accurately detect significant hypoglycemia,and testing in the Laboratory should be considered if clinically indicated. Blood 09/13/2024 5:06 AM NUCLEAR POWERPLANT MECHANIC 09/13/2024 5:06 AM NUCLEAR POWERPLANT MECHANIC Abeba Ash MD LAB POCT ORDERABLES - DEVICE Final Result Performing Organization Address City/[facility] Co de Phone Number [facility] [address] Department of [employer] [place], [place] [id number] * POCT glucose (09/13/2024 4:05 AM NUCLEAR POWERPLANT MECHANIC) Glucose, POC 189 70 - 199 mg/dL Comment: For Glucose values <35 mg/dl when Hematocrit is >60 mg/dl,the test may not accurately detect significant hypoglycemia,and testing in the Laboratory should be considered if clinically indicated. Blood 09/13/2024 4:05 AM NUCLEAR POWERPLANT MECHANIC 09/13/2024 4:05 AM NUCLEAR POWERPLANT MECHANIC Abeba Ash MD LAB POCT ORDERABLES - DEVICE Final Result [facility] [address] Department [place] [address] * CT Head WO Contrast (09/13/2024 3:40 AM NUCLEAR POWERPLANT MECHANIC) Anatomical Region Laterality Modality Head and Neck N/A Computed Tomogra phy 09/13/2024 3:3 1 AM NUCLEAR POWERPLANT MECHANIC Addenda Addendum by Zion Rodriguez MD on 09/13/2024 7:20 AM NUCLEAR POWERPLANT MECHANIC The Non Critical results were discussed with Dr. Flo Villagran by Wei Godinez, [employer] on 09/13/2024 at 7:16 Edited by: Wei Godinez Electronically signed by: Zion Rodriguez M.D. Impressions 09/13/2024 6:55 AM NUCLEAR POWERPLANT MECHANIC 1. Small lucency in the right thalamus suspicious for age indeterminate lacunar infarct, new compared to CT 09/22/2021. If there is concern for acute infarct further evaluation can be made with MRI. 2. Otherwise no CT evidence of acute intracranial abnormality. 3. Hyperdense material in the right globe likely intraocular silicone and postoperative in nature. Correlate with history. For the purposes of quality assurance nurse, this study was initially interpreted by teleradiology. There is a non-emergent discrepancy that does not immediately impact patient care. Electronically signed by: Zion Rodriguez M.D. Narrative 09/13/2024 6:55 AM NUCLEAR POWERPLANT MECHANIC EXAM:CT HEAD WO CONTRAST INDICATION: Right pupil [...] Correlate with history. For the purposes of quality assurance nurse, this study was initially interpreted by teleradiology. There is a non-emergent discrepancy that does not immediately impact patient care. Electronically signed by: Zion Rodriguez M.D. Abeba Ash MD IMG CT PROCEDURES Edited Res ult - Final * (ABNORMAL) POCT glucose (09/13/2024 3:15 AM NUCLEAR POWERPLANT MECHANIC) Glucose, POC 283(H) 70 - 199 mg/dL Comment: For Glucose values <35 mg/dl when Hematocrit is >60 mg/dl,the test may not accurately detect significant hypoglycemia,and testing in the Laboratory should be considered if clinically indicated. Blood 09/13/2024 3:15 AM NUCLEAR POWERPLANT MECHANIC 09/13/2024 3:15 AM NUCLEAR POWERPLANT MECHANIC Abeba Ash MD LAB POCT ORDERABLES - DEVICE Final Result [facility] [address] Department [place] [address] * (ABNORMAL) Urinalysis reflex to microscopic and culture Urine (09/13/2024 2:59 AM NUCLEAR POWERPLANT MECHANIC) Color, ur Yellow Yellow Clarity, ur Turbid(A) Clear [facility] Specific gravity, ur 1.016 1.003 - 1.030 [facility] pH, urine 5.5 [facility] Comment: Interpretive Data U rine pH is affected by diet, medications, systemic acid-base disturbances, and renal tubular function. pH may affect urinary stone formation. For example, urine pH below 6.0 may help reduce the tendency for calcium phosphate stones and pH greater than 6.0 may reduce the tendency for uric acid stone formation. Source: [facility] Current Interpretive Data was last revised on 2017 Protein, ur ql 1+(A) Negative [facility] Glucose, ur ql 4+(A) Negative [facility] Ketones, ur 2+(A) Negative [facility] Bilirubin, ur Negative Negative [facility] Blood, ur Trace(A) Negative [facility] Urobilinogen, ur <2.0 <2.0 mg/dL [facility] Nitrite, ur Negative Negative [facility] Leukocyte esterase, ur 4+(A) Negative [facility] UA reflex comment Reflex to microscopic UA will be performed. [facility] Urine 09/13/2024 2:59 AM NUCLEAR POWERPLANT MECHANIC 09/13/2024 3:04 AM NUCLEAR POWERPLANT MECHANIC Abeba Ash MD LAB MICROBIOLOGY - GENERAL O RDERABLES Final Result Performing Organization Address [facility] Co de Phone Number [facility] [address] [facility] [place] [address] * (ABNORMAL) Urinalysis, microscopic only (09/13/2024 2:59 AM NUCLEAR POWERPLANT MECHANIC) WBC, ur 21-50(A) 0 - 5 /HPF RBC, ur >50(A) 0 - 2 /HPF [facility] Epithelial cells, squamous, ur 6-10(A) 0 - 5 /HPF [facility] Comment:Suggestive of contam ination. Consider recollection by clean catch. Bacteria, ur 4+(A) [facility] Culture Reflex Comment Reflex to urine culture will be performed. [facility] Urine 09/13/2024 2:59 AM NUCLEAR POWERPLANT MECHANIC 09/13/2024 3:32 PM NUCLEAR POWERPLANT MECHANIC Abeba Ash MD LAB URINE ORDERABLES Final R esult Performing Organization Address [facility] de Phone Number [facility] [address] [place] [address] * (ABNORMAL) Urine culture Urine (09/13/2024 2:59 AM NUCLEAR POWERPLANT MECHANIC) Report Final Report: Greater than or equal to 100,000 colonies/ml of Lactobacillus species Susceptibility not performed on this isolate (.) Organism LACTOBACILLUS SPECIES [facility] Urine 09/13/2024 2:59 AM NUCLEAR POWERPLANT MECHANIC 09/13/2024 3:41 PM NUCLEAR POWERPLANT MECHANIC Narrative [facility] - 09/14/2024 12:08 PM NUCLEAR POWERPLANT MECHANIC Urine culture reflexed based upon urinalysis results. Abeba Ash MD LAB MICROBIOLOGY - GENERAL O RDERABLES Final Result Performing Organization Address [facility] Co de Phone Number [facility] [address] Department [place] [address] * (ABNORMAL) POCT glucose (09/13/2024 2:03 AM NUCLEAR POWERPLANT MECHANIC) [facility] Glucose, POC 260(H) 70 - 199 mg/dL Comment: For Glucose values <35 mg/dl when Hematocrit is >60 mg/dl,the test may not accurately detect significant hypoglycemia,and testing in the Laboratory should be considered if clinically indicated. Blood 09/13/2024 2:03 AM NUCLEAR POWERPLANT MECHANIC 09/13/2024 2:03 AM NUCLEAR POWERPLANT MECHANIC Abeba Ash MD LAB POCT ORDERABLES - DEVICE Final Result Performing Organization Address [facility] Co de Phone Number [facility] [address] Department [place] [address] * ECG 12 lead (09/13/2024 1:58 AM NUCLEAR POWERPLANT MECHANIC) 09/13/2024 1:58 AM NUCLEAR POWERPLANT MECHANIC Narrative [facility] - 09/13/2024 9:32 PM NUCLEAR POWERPLANT MECHANIC Vent Rate: 134 bpm RR Interval: 445 msec AR Interval: 118 msec QRS Duration: 87 msec QT Interval: 331 msec QTC Interval: 410 msec P-R-T [place]: 66 - -15 - 124 degrees IMPRESSION: SINUS TACHYCARDIA WITH SHORT AR INTERVAL ST DEVIATION AND MODERATE T-WAVE ABNORMALITY, CONSIDER LATERAL ISCHEMIA ABNORMAL ECG Electronically Signed By: Rene Nicole MD Abeba Ash MD ECG ORDERABLES Final Result Performing Organization Address [facility] Co de Phone Number [facility] [employer] [facility] * (ABNORMAL) Respiratory pathogen panel Nasopharyngeal (09/13/2024 1:50 AM NUCLEAR POWERPLANT MECHANIC) [facility] Influenza A/2009 RNA Detected(A) Not Detected MBC Influenza B RNA Not Detected Not Detected [facility] RSV RNA Not Detected Not Detected [facility] COVID-19 RNA Not Detected Not Detected [facility] Coronavirus 229E RNA Not Detected Not Detected [facility] Coronavirus HKU1 RNA Not Detected Not Detected [facility] Coronavirus NL63 RNA Not Detected Not Detected [facility] Coronavirus OC43 RNA Not Detected Not Detected [facility] Adenovirus DNA Not Detected Not Detected [facility] Metapneumovirus RNA Not Detected Not Detected [facility] Rhinovirus/Enterov irus RNA Not Detected Not Detected [facility] Parainfluenza 1 RNA Not Detected Not Detected [facility] Parainfluenza 2 RNA Not Detected Not Detected [facility] Parainfluenza 3 RNA Not Detected Not Detected [facility] Parainfluenza 4 RNA Not Detected Not Detected [facility] B. pertussis DNA Not Detected Not Detected [facility] B. parapertussis DNA Not Detected Not Detected [facility] C. pneumoniae DNA Not Detected Not Detected [facility] M. pneumoniae DNA Not Detected Not Detected [facility] Comment: Interpretive Data The AMT FilmArray Respiratory Panel (RP2.1) assay is a [...] assay has FDA clearance for testing of SEWER PIPE LAYER HELPER swabs. The performance characteristics of this assay have been determined by [facility]. Current interpretive data was last revised on 2021. Nasopharyngeal 09/13/2024 1: 50 AM NUCLEAR POWERPLANT MECHANIC 09/13/2024 2:04 AM NUCLEAR POWERPLANT MECHANIC Narrative [facility] - 09/13/2024 2:57 AM NUCLEAR POWERPLANT MECHANIC Is the Patient experiencing symptoms consistent with COVID?->Yes Surveillance testing for transplant patient?->No Abeba Ash MD LAB MICROBIOLOGY - GENERAL O RDERABLES Final Result [facility] [address] Department [place] [address] MBC * (ABNORMAL) Blood culture Blood (09/13/2024 1:50 AM NUCLEAR POWERPLANT MECHANIC) Direct Specimen Exam Stain: Gram Positive Cocci in clusters Test result called to and read back by Sandra Joiner RN on 09/14/2024 12:27:01 by PDC. Report Final Report: Staphylococcus aureus, methicillin susceptible Susceptibility reported on this organism on previous culture [id number] (.) [facility] Organism STAPHYLOCOCCUS AUREUS, METHICILLIN SUSCEPTIBLE [facility] Blood 09/13/2024 1:50 AM NUCLEAR POWERPLANT MECHANIC 09/13/2024 2:17 AM NUCLEAR POWERPLANT MECHANIC N[facility]ative [facility] - 09/15/2024 10:49 AM NUCLEAR POWERPLANT MECHANIC Collection->Peripheral Interpretive Data 1. Blood cultures are incubated and monitored continuously for 5 days (120 hours). The first negative report is issued within 24 hours of receipt in the laboratory. 2. All positive cultures are resulted and called to physicians/care providers as soon as they are detected. 3. A rapid molecular test for organism identification may be performed using the flipClass Blood Culture Identification panel. This assay detects microbial DNA in a blood culture broth. This assay has been cleared by the [place] Food and Drug Administration and its performance characteristics have been verified by the [facility]. Interpretive data was last revised on September 11, 2022. Abeba Ash MD LAB MICROBIOLOGY - GENERAL O RDERABLES Final Result Performing Organization Address [facility] Co de Phone Number [facility] [address] Department of [employer] [place], [place] [id number] * (ABNORMAL) Troponin T high-sensitivity (09/13/2024 1:46 AM NUCLEAR POWERPLANT MECHANIC) Trop T hs 116(H) <=14 ng/L Comment: Interpretive Data For further hscTnT resources including the diagnostic algorithm and an aid in interpretation, copy and paste this link: https://nrl.testcatalog.org/show/hsTrop Current Interpretive Data last revised 2020. Blood 09/13/2024 1:46 AM NUCLEAR POWERPLANT MECHANIC 09/13/2024 1:53 AM NUCLEAR POWERPLANT MECHANIC Abeba Ash MD LAB BLOOD ORDERABLES Final R esult Performing Organization Address [facility] de Phone Number [facility] [address] Department of [employer] [place], [place] [id number] * (ABNORMAL) Lactate (09/13/2024 1:46 AM NUCLEAR POWERPLANT MECHANIC) Lactate 2.6(H) 0.7 - 2.0 mmol/L Blood 09/13/2024 1:46 AM NUCLEAR POWERPLANT MECHANIC 09/13/2024 1:51 AM NUCLEAR POWERPLANT MECHANIC Abeba Ash MD LAB BLOOD ORDERABLES Final R esult Performing Organization Address [facility] Co de Phone Number [facility] [address] Department [place] [place] [address] * (ABNORMAL) eGFR (09/13/2024 1:46 AM NUCLEAR POWERPLANT MECHANIC) Pathologist [facility] eGFR 44(L) >=60 mL/min/1. 73 m2 Comment: [...] last reviewed 2021. Blood 09/13/2024 1:46 AM NUCLEAR POWERPLANT MECHANIC 09/13/2024 1:53 AM NUCLEAR POWERPLANT MECHANIC us Abeba Ash MD LAB BLOOD ORDERABLES Final R esult [facility] [address] Department [place] [address] * (ABNORMAL) Differential, auto (09/13/2024 1:46 AM NUCLEAR POWERPLANT MECHANIC) Pathologist [facility] Neutrophil abs 6.6(H) 1.5 - 6.5 K/cumm Imm gran abs 0.0 0.0 - 0.1 K/cumm [facility] Lymphocyte abs 0.5(L) 0.8 - 3.3 K/cumm [facility] Monocyte abs 0.7 0.2 - 0.8 K/cumm [facility] Eosinophil abs 0.0 0.0 - 0.5 K/cumm [facility] Basophil abs 0.0 0.0 - 0.1 K/cumm [facility] Neutrophil pct 84.7 % [facility] Comment: Interpretive Data Percent cell count reference ranges are not reported, since discordance with absolute values may lead to misinterpretation of CBC data. Current Interpretive Data was last revised on 2017. Imm gran pct 0.5 % [facility] Comment: Interpretive Data Percent cell count reference ranges are not reported, since discordance with absolute values may lead to misinterpretation of CBC data. Current Interpretive Data was last revised on 2017. Lymphocyte pct 5.8 % [facility] Comment: Interpretive Data Percent cell count reference ranges are not reported, since discordance with absolute values may lead to misinterpretation of CBC data. Current Interpretive Data was last revised on 2017. Monocyte pct 8.9 % [facility] Comment: Interpretive Data Percent cell count reference ranges are not reported, since discordance with absolute values may lead to misinterpretation of CBC data. Current Interpretive Data was last revised on 2017. Eosinophil pct 0.0 % [facility] Comment: Interpretive Data Percent cell count reference ranges are not reported, since discordance with absolute values may lead to misinterpretation of CBC data. Current Interpretive Data was last revised on 2017. Basophil pct 0.1 % [facility] Comment: Interpretive Data Percent cell count reference ranges are not reported, since discordance with absolute values may lead to misinterpretation of CBC data. Current Interpretive Data was last revised on 2017. Blood 09/13/2024 1:46 AM NUCLEAR POWERPLANT MECHANIC 09/13/2024 1:53 AM NUCLEAR POWERPLANT MECHANIC us Abeba Ash MD LAB BLOOD ORDERABLES Final R esult [facility] [address] Department [place] [address] * (ABNORMAL) Pro B-type natriuretic peptide (09/13/2024 1:46 AM NUCLEAR POWERPLANT MECHANIC) NT-proBNP 6,745(H) <=300 pg/mL Comment: Interpretive Comments: [...] et.al. Eur Heart J. 2006:27:330-337. 2. Daphney SANTOS, Zuly CHEN. J. AM Quique Cardiol: Cardiovasc Imag. 2009;2: 216- 225. Interpretive Data Last Revised Date: 2018. Blood 09/13/2024 1:46 AM NUCLEAR POWERPLANT MECHANIC 09/13/2024 1:53 AM NUCLEAR POWERPLANT MECHANIC us Abeba Ash MD LAB BLOOD ORDERABLES Final R esult [facility] [address] Department [place] [address] * (ABNORMAL) CBC with auto differential (09/13/2024 1:46 AM NUCLEAR POWERPLANT MECHANIC) [facility] WBC 7.7 3.8 - 9.9 K/cumm Hgb 11.9 11.9 - 15.5 g/dL [facility] Hct 39.4 35.6 - 45.5 % [facility] Plt 111(L) 150 - 400 K/cumm [facility] MPV 12.8(H) 9.1 - 12.3 fL [facility] RBC 4.15 3.90 - 5.20 M/cumm [facility] MCV 94.9 81.3 - 96.4 fL [facility] MCH 28.7 27.1 - 33.3 pg [facility] MCHC 30.2(L) 32.3 - 35.7 g/dL [facility] RDW CV 14.6 11.1 - 14.9 % [facility] RDW SD 50.7(H) 35.7 - 48.1 fL [facility] NRBC abs 0.00 0.00 - 0.01 K/cumm [facility] Blood 09/13/2024 1:46 AM NUCLEAR POWERPLANT MECHANIC 09/13/2024 1:53 AM NUCLEAR POWERPLANT MECHANIC us Abeba Ash MD LAB BLOOD ORDERABLES Final R esult Performing Organization Address [facility] Co de Phone Number [facility] [address] [place] [employer] [address] * (ABNORMAL) aPTT (09/13/2024 1:46 AM NUCLEAR POWERPLANT MECHANIC) aPTT 25(L) 28 - 38 sec Comment: Interpretive Data Heparin therapeutic range: 66.0 - 100.0 seconds. Range based on correlation with therapeutic heparin activity range of 0.3 - 0.7 Units/mL. Current interpretive data was last revised on 2023. Blood 09/13/2024 1:46 AM NUCLEAR POWERPLANT MECHANIC 09/13/2024 1:53 AM NUCLEAR POWERPLANT MECHANIC us Abeba Ash MD LAB BLOOD ORDERABLES Final R esult Performing Organization Address City/[facility]/ZIP Co de Phone Number [facility] [address] [place] [address] * Protime-INR (09/13/2024 1:46 AM NUCLEAR POWERPLANT MECHANIC) PT 10.0 9.7 - 13.0 sec INR 0.93 0.90 - 1.20 [facility] Comment: Interpretive data Oral anticoagulant therapeutic ranges: Venous thromboembolism prophylaxis or treatment: 2.0-3.0 CARDIOLOGY Standard range: 2.0-3.0 High-intensity range: 2.5-3.5 Refer to indication-specific guidelines for appropriate target ranges for prosthetic heart valve replacement. Current interpretive data was last revised on 2019. Blood 09/13/2024 1:46 AM NUCLEAR POWERPLANT MECHANIC 09/13/2024 1:53 AM NUCLEAR POWERPLANT MECHANIC Abeba Ash MD LAB BLOOD ORDERABLES Final R esult Performing Organization Address [facility] Co de Phone Number [facility] [address] [facility] [employer] [place], [place] [id number] * Type and screen (09/13/2024 1:46 AM NUCLEAR POWERPLANT MECHANIC) ABO Rh A Positive Charles, indirect Negative [facility] Blood 09/13/2024 1:46 AM NUCLEAR POWERPLANT MECHANIC 09/13/2024 1:51 AM NUCLEAR POWERPLANT MECHANIC Narrative [facility] - 09/13/2024 2:31 AM NUCLEAR POWERPLANT MECHANIC Has the patient had Daratumumab or Isatuximab in the past 6 months?->Unknown Abeba Ash MD LAB BLOOD BANK TEST ORDERABL ES Final Result Performing Organization Address [facility] Co de Phone Number [facility] [address] [facility] [place] [employer] [place] [address] * Phosphorus (09/13/2024 1:46 AM NUCLEAR POWERPLANT MECHANIC) Phosphorus, pl 2.7 2.3 - 4.5 mg/dL Blood 09/13/2024 1:46 AM NUCLEAR POWERPLANT MECHANIC 09/13/2024 1:53 AM NUCLEAR POWERPLANT MECHANIC Abeba Ash MD LAB BLOOD ORDERABLES Final R esult Performing Organization Address City/[facility] Co de Phone Number [facility] [address] [place] [employer] [place] [address] * Magnesium (09/13/2024 1:46 AM NUCLEAR POWERPLANT MECHANIC) [facility] Magnesium 2.1 1.4 - 2.5 mg/dL Blood 09/13/2024 1:46 AM NUCLEAR POWERPLANT MECHANIC 09/13/2024 1:53 AM NUCLEAR POWERPLANT MECHANIC Abeba Ash MD LAB BLOOD ORDERABLES Final R [facility] Performing Organization Address [facility] de Phone Number [facility] [address] [place] [employer] [address] * (ABNORMAL) Hemoglobin A1c (09/13/2024 1:46 AM NUCLEAR POWERPLANT MECHANIC) [facility] Hgb A1C 9.1(H) 4.0 - 5.6 % Estimated Average Glucose 214 mg/dL [facility] Comment: The ADA recommends reporting an estimated Average Glucose (eAG) with all Hemoglobin A1c results using the equation derived from a study of 507 normal and diabetic adults. Minority populations were underrepresented and children were not included. (Diabetes Care 31:2492-7149, 2008). The eAG is not equivalent to a fasting glucose. Blood 09/13/2024 1:46 AM NUCLEAR POWERPLANT MECHANIC 09/13/2024 1:53 AM NUCLEAR POWERPLANT MECHANIC Abeba Ash MD LAB BLOOD ORDERABLES Final R [facility] Performing Organization Address [facility] de Phone Number [facility] [address] [facility] [place] [employer] [address] * (ABNORMAL) Comprehensive metabolic panel (09/13/2024 1:46 AM NUCLEAR POWERPLANT MECHANIC) [facility] Sodium 151(H) 135 - 145 mmol/L Potassium, pl 4.0 3.3 - 4.9 mmol/L [facility] Chloride 110 97 - 110 mmol/L [facility] CO2 20(L) 22 - 32 mmol/L [facility] Anion gap 21(H) 2 - 15 mmol/L [facility] BUN 47(H) 6 - 25 mg/dL [facility] Creatinine 1.47(H) 0.60 - 1.10 mg/dL [facility] Glucose 264(H) 70 - 199 mg/dL [facility] Comment: Interpretive Data Fasting glucose >/= 126 [...] 2022. Calcium 9.2 8.5 - 10.3 mg/dL [facility] Bilirubin, total 0.3 0.1 - 1.2 mg/dL [facility] Protein, pl 7.0 6.5 - 8.5 g/dL [facility] Albumin 3.4(L) 3.5 - 5.0 g/dL [facility] Alk phos 202(H) 40 - 130 Units/L [facility] ALT 48(H) 7 - 45 Units/L [facility] AST 45 10 - 45 Units/L [facility] Blood 09/13/2024 1:46 AM NUCLEAR POWERPLANT MECHANIC 09/13/2024 1:53 AM NUCLEAR POWERPLANT MECHANIC us Abeba Ash MD LAB BLOOD ORDERABLES Final R esult [facility] [address] Department [place] [address] * (ABNORMAL) POCT glucose (09/13/2024 1:30 AM NUCLEAR POWERPLANT MECHANIC) [facility] Glucose, POC 248(H) 70 - 199 mg/dL Comment: For Glucose values <35 mg/dl when Hematocrit is >60 mg/dl,the test may not accurately detect significant hypoglycemia,and testing in the Laboratory should be considered if clinically indicated. Blood 09/13/2024 1:30 AM NUCLEAR POWERPLANT MECHANIC 09/13/2024 1:30 AM NUCLEAR POWERPLANT MECHANIC Abeba Ash MD LAB POCT ORDERABLES - DEVICE Final Result [facility] [address] Department [place] [address] * (ABNORMAL) Serum lipid panel (06/26/2014 8:11 AM NUCLEAR POWERPLANT MECHANIC) Cholesterol 328(H) 40 - 199 mg/dl HISTORICAL [...] revised on 2012. Serum 06/26/2014 8:11 AM NUCLEAR POWERPLANT MECHANIC Historical Provider LAB BLOOD ORDERABLES Salma l Result HISTORICAL RESULTS * COLONOSCOPY REPORT (06/07/2014) Anatomical Region Laterality Modality Other Narrative 06/07/2014 Ordered by an unspecified provider. Historical Provider GI PROCEDURE ORDERABLES F inal Result from Last 3 Months or Most Recently Relevant to Health Maintenance Insurance [facility] MEDICARE ADVANTAGE [facility] DIVISION [facility] MEDICARE ADVANTAGE IDPA IDPA [facility] MEDICARE ADVANTAGE Advance Directives For more information, please contact: [phone] * LIMITED - No CPR (Latest Code [...] Name Relationship Healthcare Agent Relationship Communication SOF[facility] [facility] [place] 2[facility] Daughter in Law Health Care Agent [phone] (Mobile ) Care Teams Public Health Clinical Nurse Specialist Relationship Specialty Start Date End Date Donte Lucas PA [address] [place], [place] [id number] PCP - General Physician Svp Operations 08/26/24
--- OUTSIDE RECORDS SUMMARY | 2024-10-28 12:33 | XMS_ITS | Encounter Summary ---
Author Organization [facility] Address [address] [place] [address] Phone Care Team Providers Care Real Estate Services Administrator Name Role Phone ShadyalbertoDonte PAC Primary Care Provider [phone] Reason for Visit * Auth/Cert (Routine) Specialty Diagnoses / Procedures Referred By Jadyn t Referred To Contact Referral ID Status Reason Start Date Expiration Date Visits Re quested Visits Authorized [id number] [phone] Encounter Details Date Type Department Care Team ([facility] Contact Info) Description 10/27/2024 10:00 AM CDT Home Care Visit [facility] [address] [place] [address] Elisa Pollack, [place] PT - HOME VISIT Social History Tobacco Use Types Packs/Day Years Used Date Smoking Tobacco: Never Assessed Comments Unknown Sex and Gender Information Value Date Recorded Sex Assigned at Not on file 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 Gender Identity Not on file Sexual Orientation Not on file documented as of this encounter Last Filed Vital Signs Vital Sign Reading Time Taken Comments Blood Pressure 98/52 10/27/2024 10:35 AM CDT Pulse 88 10/27/2024 10:35 AM CDT Temperature 36.7 C (98 F) 10/27/2024 10:35 AM CDT Respiratory Rate 18 10/27/2024 10:35 AM CDT Oxygen Saturation 93% 10/27/2024 10:35 AM CDT Inhaled Oxygen Concentration - - Weight - - Height - - Body Mass Index - - documented in this encounter Plan of Treatment Upcoming Encounters Date Type Department Care Team ([facility] Contact Info) Description 10/28/2024 1:30 PM CDT [facility] [address] [place] [address] Brooke Burt [place] 11/01/2024 1:00 AM CDT [facility] [address] [place] [address] Mai Bass, [place] 11/01/2024 2:00 PM CDT [facility] [address] [place] [address] Elisa Pollack, BAIL ATTACH[place] 11/02/2024 1:00 AM CDT [facility] [address] [place] [address] Brooke Burt, [place] 11/03/2024 2:00 PM CDT [facility] [address] [place] [address] Elisa Pollack, [place] 11/04/2024 1:00 AM CDT [facility] [address] [place] [phone] Brooke Burt, [place] 11/04/2024 2:00 AM CDT [facility] [address] [place] [address] Mai Bass, [place] 11/07/2024 1:00 AM CDT Home Care Visit [facility] [address] Elisa Pollack, [place] 11/08/2024 1:00 AM CDT [facility] [address] [place] [phone] Mai Bass, RN [place] 11/09/2024 1:00 AM CDT [facility] [address] [place] [address] Brooke Burt, [place] 11/10/2024 1:00 AM CDT [facility] [address] [place] [address] Elisa Pollack, [place] 11/11/2024 1:00 AM CDT [facility] [address] [place] [address] Brooke Burt, [place] 11/11/2024 2:00 AM CDT [facility] [address] [place] [address] Mai Bass, [place] 11/14/2024 1:00 AM CDT [facility] [address] [place] [address] Maggie Murguia, PT 11/15/2024 1:00 AM CDT [facility] [address] [place] [address] Kathrin Mcmullen, OT 11/15/2024 2:00 AM CDT Home Care Visit [facility] [address] Mai Bass, [place] 11/16/2024 1:00 AM CDT Home Care Visit [facility] [address] Elisa Pollack, [place] 11/18/2024 1:00 AM CDT Home Care Visit [facility] [address] Brooke Burt, UI PROGRAM[place] 11/18/2024 2:00 AM CDT Home Care Visit [facility] [address] Mai Bass, RN [place] 11/21/2024 1:00 AM CDT [facility] [address] [place] [address] Elisa Pollack, [place] 11/22/2024 1:00 AM CDT [facility] [address] [address] Brooke Burt, UI PROGRAM[place] 11/22/2024 2:00 AM CDT [facility] Visit [facility] [address] Mai Bass, [place] 11/23/2024 1:00 AM CDT Home Care Visit [facility] [address] Elisa Pollack, [place] 11/24/2024 1:00 AM CDT Home Care Visit [facility] [address] Brooke Burt, [place] 11/25/2024 1:00 AM CDT Home Care Visit [facility] [address] Mai Bass, RN [place] 11/28/2024 1:00 AM CDT Home Care Visit [facility] [address] Elisa Pollack, [place] 11/29/2024 1:00 AM CDT Home Care Visit [facility] [address] Mai Bass, RN [place] 11/30/2024 1:00 AM CDT Appointment [facility] [address] Maggie Murguia, PT 12/02/2024 1:00 AM CDT Appointment [facility] [address] Mai Bass, RN [place] documented as of this encounter Visit Diagnoses Not on filedocumented in this encounter Home Health Visit - Care Plan Visit Details Visit Type -PT - HOME VISIT Discipline -Physical Therapy Problems Problem Description Start Date Status Goals Interve ntions THERAPY DISEASE MANAGEMENT (O) Disciplines: Therapies 10/07/2024 Active - 1 problem intervention scheduled/documen monty in this visit PHYSICAL THERAPY EVALUATION (O) Disciplines: Physical Therapy PT Evaluation 10/07/2024 Active 1 goal linked to scheduled/document ed intervention 1 goal intervention scheduled/documen monty in this visit PT COMPREHENSIVE Disciplines: Physical Therapy 10/07/2024 Active 10 goals linked to scheduled/document ed interventions 9 goal interventions scheduled/documen monty in this visit Goals Goal Associated Problem Outcome Goal Met? 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 Target Date: by 12-02-24 (date) PHYSICAL THERAPY EVALUATION (O) No PT Balance Description: Prison Goal: Patient will show improved dynamic standing balance as demonstrated by improved Tinetti score from 08/06 to in order to lower risk for falls and Improve functional mobility. To be met by 12-02-24. PT COMPREHENSIVE No PT Edema Management Description: Short Term Goal: Patient will demonstrate consistent implementation of therapeutic edema management principles including: rest, elevation, ankle pumps and therapeutic exercise as indicated. To be met by 11-18-24. PT COMPREHENSIVE No PT Caregiver Assist/Safety Description: prison Goal: Caregiver will be able to safely demonstrate patient assistance with home exercise program, bed mobility, transfers, ambulation and stair negotiation in order to safey assist pt when PT staff is not present. To be met by 12-02-24. PT COMPREHENSIVE No PT Activity Tolerance Description: prison Goal: Patient to demonstrate increased activity tolerance with gait distance of 100 feet as evidenced by a Modified Lam perceived exertion rating of 5/10 or less to facilitate household mobility . To be met by 12-02-24. PT COMPREHENSIVE Therapy: Goal partially met No PT Stairs and Home Exit Description: Short Term Goal: Patient will require minimal assistance on entry steps or ramp with use of a wheeled walker while maintaining ordered precautions to allow for ability to enter/exit home safely . To be met by 11-18-24. Grain Receiver Goal: Patient will require supervision on entry steps or ramp with use of a wheeled walker while maintaining ordered precautions to allow for ability to enter/exit home safely . To be met by 12-02-24. PT COMPREHENSIVE No PT Bed Mobility Description: Short Term Goal Patient will require minimal assistance with supine to sit and sit to supine in order to ease caregiver burden . To be met by 11-18-24. Prison Goal Patient will be independent with supine to sit and sit to supine in order to increase independence with functional mobility. To be met by 12-02-24. PT COMPREHENSIVE No PT Gait Description: Short Term Goal: Patient will ambulate with SBA x 100 feet with use of 4 wheel walker, over even surfaces with the following gait characteristics no LOB in order to/from kitchen to obtain a snack. To be met by 11-18-24. Prison Goal: Patient will ambulate independently x 100-200 feet with use of 4 wheel walker, over even surfaces with the following gait characteristics improvement in B step length and L LE foot clearance in order to safely ambulate into [employer] to obtain groceries. To be met by 12-02-24. PT COMPREHENSIVE No PT Transfers Description: Short Term Goal: Patient will perform sit<>stand transfers with CGA x 1 with use of a wheeled walker. To be met by 11-18-24. Grain Receiver Goal: Patient will perform sit<>stand transfers independently with use of a wheeled walker. To be met by 12-02-24. PT COMPREHENSIVE No PT Strength Description: Grain Receiver Goal: Patient will show improved bilateral lower extremity hip strength as demonstrated by improved manual muscle test score to at least 4/5 . To be met by 12-02-24. PT COMPREHENSIVE No PT HEP Description: Prison Goal: Patient and/or caregiver will independently with final HEP of strengthening, balance training, conditioning and core strengthening in order to continue making strength gains , improving balance and improving activity tolerance after discharge from home care. To be met by 12-02-24. PT COMPREHENSIVE No Interventions Intervention Associated Problem/Goal Status Variance Visit Notes Therapy Heart Failure Disease Management (O) Description: Monitor patient for signs and symptoms of heart failure exacerbation and report to nurse or physician. Problem:THERAPY DISEASE MANAGEMENT (O) Completed Heart Failure exacerbation symptoms exhibited none. Action taken n/a Physical Therapy General (Order Only) Description: Pt was admitted to [facility] on 10/14/24 and transferred to [facility] the following day - she was diagnosed with a CHF exacerbation. She received 2 units of blood while inpatient and was also diagnosed with a UTI and pneumonia. She returned home on 10/20/24 with orders for [facility] to resume and new O2 at 2L continuously and a gonzalez catheter. She has had 1 fall since coming home. Pt is on a fluid restriction. PMH : seizures, CHF, diabetes, PVD, a-fib, PE, CKD, CAD, OA, CVA, L femur fracture. [facility] PT referral initially received for diagnosis of difficulty in walking. Pt seen for [facility] PT re-evaluation following hospitalization. Pt would benefit from resuming skilled [facility] PT for gait/mobility training with walker, balance/endurance training, ther ex, HEP and pt/caregiver education. [facility] therapy may check oxygen saturation level prn during therapy visits with MD notification if SpO2 maintains below 90%. Pt is aware of revised plan of care, visit schedule, and goals and is agreeable to resuming [facility] PT. Pt was in [facility] on 09/11/24 with c/o abdominal pain, nausea, and vomiting. She was diagnosed with DKA and an NSTEMI. She transferred to [facility] from 09/13/24-10/01/24 due to the need for a higher level of care. She had several complications when inpatient including altered mental status, intubation, encephalopathy, influenza, pneumonia. She declined SNF placement and returned home with orders for HHC. 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 Pt's son and daughter are currently living with her. Pt's PCP has ordered a wheelchair for her. She is having issues with incontinence due to her water pill being increased. PMH : seizures, CHF, diabetes, PVD, a-fib, PE, CKD, CAD, OA, CVA, L femur fracture. [facility] PT referral received for diagnosis of weakness and/or difficulty in walking. Pt presents with decline in general mobility and functional endurance and overall safety. Pt would benefit from skilled [facility] PT for gait/mobility training with walker, balance/endurance training, ther ex, HEP, and pt education. [facility] therapy may check oxygen saturation level prn during therapy visits with MD notification if SpO2 maintains below 90%. Pt is aware of plan of care, visit schedule, and goals and is agreeable. Perform pulse oximetry PRN for intermittent assessment and/ or respiratory distress. Problem:PHYSICAL THERAPY EVALUATION (O) Goal:Physical Therapy Evaluation Completed PT Balance Description: Provide balance training for safety and reduced fall risk. Problem:PT COMPREHENSIVE Goal:PT Balance Completed Balance training provided this date Static/dynamic standing for 3 min with upper extremity support on walker while preforming ADL's requiring reaching in midline and outside DAVID. Supervision provided with cues for balance stabilization and foot placement. Patient had no LOB during this activity. Instruction provided to Patient. Response verbalize understanding. PT Edema Management Description: Instruct on edema management techniques. Problem:PT COMPREHENSIVE Goal:PT Edema Management Completed Skilled instruction provided to Patient on edema management techniques including: rest, elevation and therapeutic exercise as indicated. Response verbalize understanding. PT Caregiver Assist/Safety Description: Instruct caregiver how to safely assist patient. Problem:PT COMPREHENSIVE Goal:PT Caregiver Assist/Safety Caregiver unavailable PT Stairs and Home Exit Description: Instruct in proper safety and technique for stair training or home exit as directed in the goal. Problem:PT COMPREHENSIVE Goal:PT Stairs and Home Exit Not addressed at this visit PT Bed Mobility Description: Instruct on bed mobility techniques and safety. Equipment as needed. Problem:PT COMPREHENSIVE Goal:PT Bed Mobility Not addressed at this visit PT Gait Description: Provide gait training for increased safety and efficiency. Progress per patient tolerance and safety. Problem:PT COMPREHENSIVE Goal:PT Gait Completed Patient ambulated with moderate assistance 35 feet with use of 4 wheel walker over even surfaces with the following gait characteristics slow maria del rosario, deacreased step length/height and shortness of breath noted. O2 sats dropped from 93-88% with rebound to above 90% after sitting rest with cues for performed pursed lip breathing. Skilled instruction consisting of pursed lip breathing provided to Patient. Tolerance to activity increased gait distance and SPO2 following ambulation- 95%. PT Transfers Description: Instruct in proper safety and transfer technique. Problem:PT COMPREHENSIVE Goal:PT Transfers Completed Instructed Patient and Caregiver family members on transfer training: sit to/from stand at w/c and commode with use of: gait belt, upper extremity support. Patient required moderate assistance. Skilled instruction consisting of LE positioning and forward propulsion with cues for nose over toes and hand placement. Tolerance to activity: able to return demonstrate proper technique x 4 trials getting up from W/C, commode PT Therapeutic Exercise Description: Instruct on therapeutic exercise. Progress as tolerated. Problem:PT COMPREHENSIVE Goal:PT Strength Completed Therapeutic exercise instruction this date in reclined supine/siting HEP off of provided handouts for supine exercises. Supine (A/AROM) : ankle pumps, quad sets, glute sets, heel slides, hip abd/add, SAQ. Sitting (AROM): included ankle pumps, LAQ's, hip flexion, hip abduction all x 10 reps. Verbal cues for proper breathing technique, full ROM, engaging core musculature for support, and slower performance with 3 sec pause at end of range for optimal benefit of exercises - good return demo. LE HEP performed to promote improved B LE strength for carry-over into functional mobility. Recommended she perform LE HEP 2x daily for continued strengthening. Skills provided: ongoing instruction in technique, 10 reps 2 x daily. Home Exercise Program issued provided at this visit Instruction provided to Patient. PT HEP Progression Description: Instruct on home exercise program. Progress as tolerated. Problem:PT COMPREHENSIVE Goal:PT HEP Completed Home Exercise Program issued to Patient for siting exercises at prior visit and supine exercises at this visit. with instruction to preform 10 reps 2 x daily. Response verbalize understanding. documented in this encounter Care Teams Real Estate Services Administrator Relationship Specialty Start Date End Date Donte Lucas, MURIEL [address] [place] [id number] PCP - General Physician Personnel Psychologist 10/01/24 documented as of this encounter
--- OUTSIDE RECORDS SUMMARY | 2024-10-28 12:33 | XMS_ITS ---
Author Organization [facility] Address [address] [place] [address] Care Team Providers Care Civil Engineering Project Designer Name Role Phone Clement Ray Primary Care Provider Unavailab mandy Benitez MD, Ugo Unavailable REASON FOR VISIT arterial duplex Encounters Encounter Location Date Provider Diagnosis [facility] [address] [place] [id number] 06/28/2023 Ugo Benitez Plan Of Treatment No Information Progress Notes * Karyn MARSHALLOB:1975 ( 47 yo F)Acc No.[id number]:06/28/2023 Patient: Brooke Farrar :1975 A ge:47 Y S ex:Female Address:[address] [place], [address] * true * Date: Generated for Printi ng/Faxing/eTransmitting on: 0 10/28/2024 12:32 PM CDT
--- OUTSIDE RECORDS SUMMARY | 2024-10-28 12:33 | XMS_ITS | Clinical Summary ---
Author Organization [facility] Address [address] [place] [address] Phone Care Team Providers Care Business Systems Analyst Name Role Phone ShadyDonte dominguez Rochelle [facility] Primary Care Provider [phone] Allergies Active Allergy Reactions Criticality Noted Date Comments Cephalexin Rash 10/06/2024 Codeine Itching 10/06/2024 Erythromycin Vomiting 10/06/2024 Phyllantus Niruri Swelling 10/06/2024 Medications HYDROcodone-acet aminophen (NORCO) 10-325 MG Tablet Take 1 Tablet by mouth every 6 hours as needed for Mild or more severe pain. Active Fluticasone Furoate 50 MCG/ACT AEROSOL POWDER, BREATH ACTIVATED 1 [place] by Nasal route daily. Active OMEPRAZOLE PO Take 40 mg by mouth daily. Active losartan (COZAAR) 25 MG Tablet Take 25 mg by mouth daily. Active lubiprostone (Amitiza) 24 MCG Capsule Take 24 mcg by mouth 2 times daily (with meals). Active EZETIMIBE PO Take 10 mg by mouth daily. Active docusate sodium (COLACE) 100 MG Tablet Take 100 mg by mouth Daily as needed for Constipation - 1st line. Active Aspirin 81 MG Capsule Take 1 Tablet by mouth daily. Active celecoxib (CeleBREX) 200 MG Capsule Take 200 mg by mouth 2 times daily. Active atorvastatin (LIPITOR) 80 MG Tablet Take 80 mg by mouth daily. Active Insulin Detemir (LEVEMIR SC) 46 Units by Subcutaneous route nightly. Active insulin lispro (HumaLOG) 100 UNIT/ML Solution 8 Units by Subcutaneous route 3 times daily (before meals). Active becaplermin (Regranex) 0.01 % Gel Apply 15 Doses every morning. Active Insulin Glargine (TOUJEO SOLOSTAR SC) 50 Units by Subcutaneous route nightly. Active Tirzepatide (Mounjaro) 2.5 MG/0.5ML Solution Auto-injector 2.5 mg by Subcutaneous route once a week. Active acetaminophen (TYLENOL) 325 MG Tablet Take 650 mg by mouth every 4 hours as needed for Fever or Mild or more severe pain. Active bumetanide (BUMEX) 2 MG Tablet Take 2 mg by mouth 3 times daily. Active cyclobenzaprine (FLEXERIL) 10 MG Tablet Take 10 mg by mouth 3 times daily as needed for Muscle spasms. Active Gabapentin 400 MG Tablet Take 400 mg by mouth 2 times daily. Take 400mg in am and 1200mg at hs Active rivaroxaban (XARELTO) 20 MG Tablet Take 20 mg by mouth daily. Active albuterol (PROVENTIL, VENTOLIN) (5 MG/ML) 0.5% Nebulizer Soln 5 mg by Nebulization route every 4 hours as needed for Shortness of Breath or Wheezing. Active famotidine (PEPCID) 20 MG Tablet Take 20 mg by mouth every evening. Active Iron, Ferrous Sulfate, 325 (65 Fe) MG Tablet Take 1 Tablet by mouth daily. Active guaiFENesin (MUCINEX) 600 MG TABLET SR 12 HR Take 600 mg by mouth 2 times daily. Active ipratropium-albu terol (DUO-NEB) 0.5-2.5 (3) MG/3ML Solution 3 mL by Nebulization route every 4 hours. Active Lidocaine 4 % Patch 1 Patch by Transdermal route every 12 hours as needed for Pain. on for 12 hours and off for 12 hours Active metoprolol Succinate (TOPROL-XL) 25 MG TABLET SR 24 HR Take 25 mg by mouth daily. Active OXYGEN CONCENTRATOR 2 L by Does not apply route as needed for Other. Active Potassium Chloride ER (KLORCON) 20 MEQ Tablet Controlled Release Take 20 mEq by mouth 3 times daily. Active sodium chloride, Inhalant, 7 % Nebulizer Soln 4 mL by Nebulization route every 4 hours. Active cyclobenzaprine (FLEXERIL) 5 MG Tablet Take 5 mg by mouth 2 times daily as needed for Muscle spasms. 025 Discontinu ed(Dose adjustment ) bumetanide (BUMEX) 1 MG Tablet Take 1 mg by mouth 2 times daily (with meals). take 2 tablets in the am and 1 tablet in the pm Discontinu ed(Dose adjustment ) metoprolol Succinate (TOPROL-XL) 25 MG TABLET SR 24 HR Take 25 mg by mouth daily. Discontinu ed(Discont inued by another clinician) Dapagliflozin Propanediol (Farxiga) 10 MG Tablet Take 10 mg by mouth daily. Discontinu ed(Discont inued by another clinician) gabapentin (NEURONTIN) 400 MG Capsule Take 400 mg by mouth 3 times daily. talke 1 pill in the AM and Lunch and 3 tablets at hs Discontinu ed(Dose adjustment ) rivaroxaban (Xarelto) 10 MG Tablet Take 10 mg by mouth daily. Discontinu ed(Dose adjustment ) ciprofloxacin (CIPRO) 250 MG Tablet Take 250 mg by mouth 2 times daily. 10/11/19 Discontinu ed(Med List Clean Up) fluconazole (Diflucan) 150 MG Tablet Take 150 mg by mouth once. 10/12/19 Discontinu ed(Med List Clean Up) Encounters Date Type Department Care Team Description 10/28/2024 9:30 AM CDT Home Care Visit [address] [address] Mai Bass, RN SN - PRIORITY VISIT 10/27/2024 10:00 AM CDT Home Care Visit [address] [address] Elisa Pollack, LOOM WINDER TENDER PT - HOME VISIT 10/25/2024 2:30 PM CDT Home Care Visit [address] [address] Deepika Ely, STEAM FRAME OPERATOR-SPEECH LANGUAGE PATHOLOGIST STEAM FRAME OPERATOR - INITIAL EVALUATION 10/25/2024 1:30 PM CDT Home Care Visit [address] [address] Maggie Murguia, PT PT - INITIAL EVALUATION 10/25/2024 12:30 PM CDT Home Care Visit [address] [address] Kathrin Mcmullen OT OT - INITIAL EVALUATION 10/24/2024 2:00 AM CDT Home Care Visit [address] [address] Mai Bass, RN SN - OASIS RESUMPTION OF CARE 10/24/2024 Plan of Care Documentation [address] [address] 10/24/[address] [address] Kami Mccoy, RN 10/23/[address] [address] Deepika Keith, RN Appointment 10/21/[address] [address] Ariana Callahan, RN visits 10/19/2024 Home Care Visit [address] [address] Mehnaz Hilario RN SN - OASIS TRANSFER W/OUT DC 10/14/2024 11:00 AM 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 Home Care Visit [address] [address] Brooke Burt OTA OT - HOME VISIT 10/14/2024 11:00 AM 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 Home Care Visit [address] [address] Kathleen Clement PTA PT - HOME VISIT 10/13/2024 1:30 PM 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 Home Care Visit [address] [address] Mai Bass, RN SN - PRIORITY VISIT 10/13/2024 10:00 AM 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 Home Care Visit [address] [address] Mercedes Pham, SLUNK SKINNER SLUNK SKINNER - INITIAL EVALUATION 10/12/2024 12:30 PM 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 Home Care Visit [address] [address] Saima Busby, LOOM WINDER TENDER PT - HOME VISIT 10/11/2024 11:45 AM 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 Home Care Visit [address] [address] Kathrin Mcmullen OT OT - INITIAL EVALUATION 10/11/2024 8:00 AM 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 Home Care Visit [address] [address] Mai Bass, RN SN - PRIORITY VISIT 10/11/2024 Home Care Visit [address] [address] Mai Bass, RN TELEPHONE ENCOUNTER 10/11/2024 Home Care Visit [address] [address] Mai Bass, RN TELEPHONE ENCOUNTER 10/07/2024 2:00 PM 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 Home Care Visit [address] [address] Maggie Murguia, PT PT - INITIAL EVALUATION 10/06/2024 10:00 AM 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 Home Care Visit [address] [address] Mai Bass, RN SN - OASIS START OF CARE 10/06/2024 Plan of Care Documentation [address] [address] 09/12/2024 Travel from Last 3 Months Social History Tobacco Use Types Packs/Day Years Used Date Smoking Tobacco: Never Assessed Comments Unknown Sex and Gender Information Value Date Recorded Sex Assigned at Not on file Legal Sex Female 1:58 PM 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 Gender Identity Not on file Sexual Orientation Not on file Last Filed Vital Signs Vital Sign Reading Time Taken Comments Blood Pressure 98/52 10/27/2024 10:35 AM CDT Pulse 88 10/27/2024 10:35 AM CDT Temperature 36.7 C (98 F) 10/27/2024 10:35 AM CDT Respiratory Rate 18 10/27/2024 10:35 AM CDT Oxygen Saturation 93% 10/27/2024 10:35 AM CDT Inhaled Oxygen Concentration - - Weight 90.7 kg (200 lb) 10/06/2024 10:43 AM 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 Height 165.1 cm (5' 5 ) 10/25/2024 1:15 PM CDT Body Mass Index 33.28 10/06/2024 10:43 AM 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 Plan of Treatment Upcoming Encounters Date Type Department Care Team (Late st Contact Info) Description 10/28/2024 1:30 PM CDT Home Care Visit [address] [address] Brooke Burt OTA MD 11/01/2024 1:00 AM CDT Home Care Visit [address] [address] Mai Bass RN MD 11/01/2024 2:00 PM CDT Home Care Visit [address] [address] Elisa Pollack, LOOM WINDER TENDER MD 11/02/2024 1:00 AM CDT Home Care Visit [address] [address] Brooke Burt OTA MD 11/03/2024 2:00 PM CDT Home Care Visit [address] [address] Elisa Pollack, LOOM WINDER TENDER [place] 11/04/2024 1:00 AM CDT Home Care Visit [address] [address] Brooke Burt OTA MD 11/04/2024 2:00 AM CDT Home Care Visit [address] [address] Mai Bass RN [place] 11/07/2024 1:00 AM CDT Home Care Visit [address] [address] Elisa Pollack, LOOM WINDER TENDER [place] 11/08/2024 1:00 AM CD[facility] [address] [place] [address] Mai Bass, RN [place] 11/09/2024 1:00 AM CD[facility] [address] [place] [address] Brooke Burt, M[place]AN[place] 11/10/2024 1:00 AM CDT [facility] Visit [facility] [address] [place] [address] Elisa Pollack, LOOM WINDER TENDER [place] 11/11/2024 1:00 AM CDT [facility] [address] [place] [address] Brooke Burt, MELAN[place] 11/11/2024 2:00 AM CDT Home Care Visit [address] [address] Mai Bass, RN [place] 11/14/2024 1:00 AM CDT [facility] [address] [place] [address] Maggie Murguia, PT 11/15/2024 1:00 AM CDT Home Care Visit [address] [address] Kathrin Mcmullen OT 11/15/2024 2:00 AM CDT [facility] [address] [place] [address] Mai Bass, RN [place] 11/16/2024 1:00 AM CDT [facility] [address] [place] [address] Elisa Pollack, LOOM WINDER TENDER [place] 11/18/2024 1:00 AM CDT [facility] [address] [place] [address] Brooke Burt, [place] 11/18/2024 2:00 AM CD[facility] [address] [place] [address] Mai Bass, RN [place] 11/21/2024 1:00 AM CD[facility] [address] [place] [address] Elisa Pollack, LOOM WINDER TENDER [place] 11/22/2024 1:00 AM CDT Home Care Visit [address] [address] Brooke Burt, STAGE TECHNICIAN [place] 11/22/2024 2:00 AM CDT Home Care Visit [address] [address] Mai Bass, RN [place] 11/23/2024 1:00 AM CDT Home Care Visit [address] [address] Elisa Pollack, LOOM WINDER TENDER [place] 11/24/2024 1:00 AM CDT Home Care Visit [address] [address] Brooke Burt, [place] 11/25/2024 1:00 AM CDT Home Care Visit [address] [address] Mai Bass, RN [place] 11/28/2024 1:00 AM CDT Home Care Visit [address] [address] Elisa Pollack, LOOM WINDER TENDER [place] 11/29/2024 1:00 AM CDT Home Care Visit [address] [address] Mai Bass, RN [place] 11/30/2024 1:00 AM CDT Appointment [address] [address] Maggie Murguia, PT 12/02/2024 1:00 AM CDT [place] [place] [address] Mai Bass, RN [place] Insurance [place] MED[place] [employer] on file Advance Directives * Full Code (Latest Code Status on File) Date Activated Date Inactivated Comments 10/06/2024 10:06 PM Care Teams Business Systems Analyst Relationship Specialty Start Date End Date Donte Lucas PAC [address] [place] [address] PCP - General Physician Support Merchandiser 10/01/24
--- OUTSIDE RECORDS SUMMARY | 2024-10-28 12:33 | XMS_ITS | Continuity of Care Document ---
Author Organization [facility] Address [id number] [place] [address] [address] [place] [address] Phone Care Team Providers Care Conditioner Tender Name Role Phone Josh Teixeira MD, MD Unavailable Unavailab le Procedures Procedure Date POSTOP FOLLOW-UP VISIT CATARACT SURG W/IOL, 1 STAGE CATARACT SURG W/IOL, 1 STAGE OFFICE/OUTPATIENT VISIT, [facility] Advance Directives Directive Yes / No Effective Date File Name No Information Encounters Encounter Description Practice Location Reason(s) For Visit Diagnoses Date Provider Providers Copied on Encounter [facility], [address] [facility] [facility] [address], [place], [place], [id number], [place] tel:[phone] [facility] No Information 4 Puneet Moreno. [address], [place], [place], [id number] , [place]. [phone] Referring Provider: Josh Watkins, [address], [place], [place], [address]. tel:[phone] [facility], [address], [place], [place], [address], [place] tel:[phone] [facility] No Information 4 Puneet Morneo. [address], [place], [place], [address] , [place]. [phone] Referring Provider: Josh Watkins, [address], [place], [place], [address]. tel:[phone] [facility], [address] [address], [place], [place], [address], tel:[phone] [facility] No Information 3 Puneet Moreno. [address], [place], [place], [address] , [place]. tel:[phone] Referring Provider: Josh Watkins, [address], [place], [place], [address]. tel:[phone] OFFICE/OUTPAT IENT VISIT, [facility], [address] [facility] [address], [place], [place], [id number], tel:[phone] [facility] No Information 3 Puneet Moreno. [address], [place], [place], [address] , [place]. tel:[phone] Referring Provider: Josh Watkins, [address], [place], [place], [address]. tel:[phone] Family History Family Member Type Diagnosis Age At Onset No Information Payers Payer name Insurance type Covered democrat ID Authoriza tion(s) No Information Social History [...]
--- OUTSIDE RECORDS SUMMARY | 2024-10-28 12:33 | XMS_ITS ---
Author Organization [facility] Address [address] [place] [address] Care Team Providers Care Civil Engineer'S Aide Name Role Phone Clement Ray Primary Care Provider Unavailab mandy Benitez MD, Ugo Unavailable [phone] REASON FOR VISIT Pt missed appt Encounters Encounter Location Date Provider Diagnosis [facility] [address] [place] [address] 06/25/2023 Ugo Benitez Plan Of Treatment No Information Progress Notes * Karyn MARSHALLOB:1975 ( 47 yo F)Acc No.[id number]:06/25/2023 Patient: Brooke Farrar :1975 A ge:47 Y S ex:Female Address:[address] [place], [address] * true * Date: Generated for Printi ng/Fajonathang/eTransmitting on: 0 10/28/2024 12:32 PM CDT
--- OUTSIDE RECORDS SUMMARY | 2024-10-28 12:33 | XMS_ITS | Clinical Summary ---
Author Organization [facility] [employer] Address [address] [place] [address] Care Team Providers Care Land Management Forester Name Role Phone Clement Pinto APRN-EPIC ANALYST Primary Care Provider Source Comments [facility] [employer],non-owned Affiliates and Associated Physician Practices is amultiple site organization consisting of ambulatory clinics and hospital sitesin [place], [place], [place] and [place]. This disclosure is being madepursuant to the Care Everywhere program and may not contain all information available regarding this patient. Last updated 18.[employer] Allergies Active Allergy Reactions Criticality Noted Date [...] by mouth once daily Active HYDROcodone-acetam inophen ([place]) 5-325 MG tabletIndications: Post-operative state Take 1 [...] 85 05/13/2023 2:23 PM CDT Temperature 36.4 C (97.6 F) 05/13/2023 2:23 PM CDT Respiratory Rate 17 05/13/2023 2:23 PM CDT [...] of 3 - 19+ 3-dose series) 1993 COVID-19 VACCINE (1 - 2023-2 5 season) 2024 INFLUENZA VACCINE (#1) 2024 DEPRESSION SCREENING 08/10/2024 MEDICARE AWV CALENDAR YEAR 2024 ZOSTER VACCINE (1 of 2) 2024 HIB VACCINE Aged Out No longer eligi ble based on patient's age to complete this topic HPV VACCINE Aged Out No longer eligi ble based on patient's age to complete this topic MENINGOCOCCAL (Group B) VACC INE SHARED DECISION-MAKING Aged Out No longer eligibl e based on patient's age to complete this topic MENINGOCOCCAL GROUPS A/C/Y/W VACCINE Aged Out No longer eligible b ased on patient's age to complete this topic Care Teams Land Management Forester Relationship Specialty Start Date End Date Clement Pinto APRN-EPIC ANALYST [address] [place] [id number] PCP - General Nurse Practitioner Family 05/13/23
--- OUTSIDE RECORDS SUMMARY | 2024-10-28 12:34 | XMS_ITS | Continuity of Care Document ---
Author Organization [facility] Address [address] [place] [address] Phone Care Team Providers Care Ambulatory Analyst Name Role Phone Arnulfo Farrell Unavailable Unavailable Advance Directives Directive Yes / No Effective Date File Name No Information Encounters Encounter Description Practice Location Reason(s) For Visit Diagnoses Date Provider Providers Copied on Encounter [facility], [address] [place] [address], [facility], tel:[phone] *[facility] No Information Bud Arredondo. [address] [place] [address], [facility], . tel:[phone] Family History Family Member Type Diagnosis Age At Onset No Information Payers Payer name Insurance type Covered alliance party ID Authoriza tion(s) No Information Social [...]
--- OUTSIDE RECORDS SUMMARY | 2024-10-28 12:34 | XMS_ITS | Patient Health Record ---
Author Organization [facility] Address [address] [place] [address] Care Team Providers Care Quill Layer Name Role Phone Clement Ray Primary Care Provider Unavailab Hunter [place], Ugo Unavailable Allergies Allergen (clinical drug ingredient) Drug/Non Drug Allergy documented on EMR Reaction Allergy Type Onset Date Status erythromycin Erythromycin Unknown Drug Allergy A ctive codeine Codeine Unknown Drug Allergy Active Keflex Unknown Drug Allergy Active Reason For Referral No Information Medications Medication SIG (Take, Route, Frequency, Duration) Notes Start Date End Date Status HumaLOG KwikPen 100 UNIT/ML as directed Subcutaneous Active Lantus SoloStar 100 UNIT/ML as directed Subcutaneous Active Bumetanide 1 MG 1 tablet Orally in the morning and 1 tab in the evening for 30 days this is a dosage increase Active Ozempic (0.25 or 0.5 MG/DOSE) 2 MG/3ML as directed Subcutaneous Active Xarelto 20 mg TAKE 1 TABLET BY MOUTH ONCE DAILY for 30 Active busPIRone HCl 10 MG 1 tablet Orally Twice a day Active Metoprolol Succinate ER 25 mg TAKE 1/2 (ONE-HALF) TABLET BY MOUTH ONCE DAILY for 30 Active Cyclobenzaprine HCl 5 MG 1 tablet at bedtime as needed Orally Once a day for 30 day(s) Active Farxiga 10 mg TAKE 1 Tablet BY MOUTH ONCE DAILY for 30 Active SM Aspirin Adult Low Strength 81 MG TAKE 1 TABLET BY MOUTH ONCE DAILY Oral for 30 Active Vitamin D (Ergocalciferol) 1.25 MG (61383 UT) Oral for 28 Active Atorvastatin Calcium 80 MG TAKE 1 TABLET BY MOUTH ONCE DAILY AT BEDTIME Oral for 30 Active Pantoprazole Sodium 40 MG 1 tablet Orally Twice a day Active HYDROcodone-Acetaminoph en 5-325 MG TAKE 2 TABLETS BY MOUTH EVERY 4 HOURS NEEDED FOR BREAK THROUGH PAIN Diagnosis Unavailable Oral for 5 Active Social History Tobacco Use: Social History Observation Description Date Details (start date - stop date) Current Smoker NA - NA Tobacco Use/Smoking Question Answer Notes Are you a current smoker How often do you smoke cigarettes? every day How many cigarettes a day do you smoke? - Alcohol Screen (Audit-C) Question Answer Notes Did [...] Never (0 point) Points 1 Interpretation Negative Problems Problem Type SNOMED Code ICD Code Onset Dates Problem Status W/U Status Risk Notes Problem 3917165 Hypertensive heart disease with heart failure (I11.0) Active confirmed Well control led in office today. She does note lows at times; will try coreg at 1/2 tab BID. May ultimately have to stop beta rebecca or LOUIE-I. Would like to hold off on midodrine if possible. Problem 264512855 Ischemic cardiomyopathy (I25.5) Active confirmed LVEF 35% on las t echo in our office. Will check echo at [facility] as it has been some time. She will resume lisinopril at low dose and hopefully if compliant with that can get her on some low dose beta rebecca and maybe even Corlanor. She is definitely not an ICD candidate at this point given noncompliance. Again, very akshat discussion today. Problem 402891196 Nonrheumatic tricuspid (valve) insufficiency (I36.1) Active confirmed Problem 781728440 Chronic systolic (congestive) heart failure (I50.22) Active confirmed Volume status is better today. She notes recent labs, will obtain those. Encouraged low sodium diet, daily weights, and monitoring symptoms. I did have an extremely akshat conversation about the implications of her noncompliance on her cardiovascular health and overall quality of life. Somewhat Hamstra by her softer blood pressures at times better lately. I am going to increase her Bumex back up to 1 mg twice daily 2 weeks time also adding Farxiga 10 mg daily to her regimen that may help some mild diuresis for long vascular outcome related to heart failure. Poor bypass candidate and suboptimal PCI candidate. Thus, if vascularized, likewise would be not an ideal ICD candidate long-term. However, if we can optimize her bit further medically, we may reconsider that option and echo at some point next year. 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 We will continue with medical management for now. She will continue medical management with ASA, statin, and will resume low dose LOUIE-I. Ultimately may consider second opinion for CABG but must get her medically stable and she must quit smoking. She must also be compliant with medications and follow up. . Continue antiplatelet and statin therapy and low-dose beta-blockers, as tolerated by her blood pressure. Problem 465773351 History of pulmonary embolism (Z86.711) Active confirmed We discussed th e risk of self stopping the Eliquis. will trial Xarelto. Problem 74274306 Cigarette nicotine dependence without complication (F17.210) Active confirmed The patient alamo s continue to smoke. We did spend 3-5 minutes discussing intermodal customer service cardiovascular benefits of cessation as well as cessation strategies. He/she will call with any cessation needs. Plan Of Treatment Future Test Test Name Order Date Magnesium, Serum 06/05/2021 Basic Metabolic Panel (8) 06/05/2021 Insurance Providers Payer Name Payer Address Payer Phone Subscriber Number Group Number Insured Name Patient Relationship to Insured Coverage Start Date Coverage End Date BCBS [place] [address] [place] [address] [id number] Brooke Garcia Self - patient is the insured Medicaid [place] [address] [place] [address] [phone] [id number] Brooke Garcia Self - patient is the insured Medical (General) History Medical History History ICD Code Heart Cath Blood Clots Insomnia Anxiety High Cholesterol Diabetes 2 Surgical History Surgery Date(Month/Year) broken femur 03/27/2021 uterous removal 1999 unsuccessful tuball tonsils 1980 left big toe amputation 2019 eye surgeries Hospitalization History Reason Date(Month/Year) [facility]27/2021 [place] 1980 [place] [id number]
--- OUTSIDE RECORDS SUMMARY | 2024-10-28 12:34 | XMS_ITS | Continuity of Care Document ---
Author Organization [facility] Address [address] [place] [address] Phone Care Team Providers Care Section Leader Screen Printing Name Role Phone Unavailable Unavailable Unavailable Allergies, [...] ONCE DAILY - Active FreeStyle Carol 2 [place] please issue one reader to monitor constant [...] Diagnoses Date Provider Providers Copied on Encounter [facility], [address] [place] [address], [address], tel:[phone] *[facility] No Information 4 No Information [facility], [address] [place] [address], [address], tel:[phone] *[facility] No Information 3 No Information [facility], [address] [place] [address], [address], tel:[phone] *[facility] Body mass index [BMI] 32.0-32.9, adult 3 No Information OFFICE/OUTPA TIENT VISIT, EST [facility], [address] [place] [address], [address], tel:[phone] *[facility] Diabetes (chief complaint)R efills (chief complaint) Chronic kidney disease, unspecified CKD stageType 2 diabetes mellitus with hyperglycemiaPa in in unspecified joint 3 No Information [facility], [address] [place] [address], [address], [place] tel:[phone] *[facility] No Information 3 No Information [facility], [address] [place] [address], [address], [place] tel:[phone] *[facility] Abnormal complete blood count 3 No Information OFFICE/OUTPA TIENT VISIT, [facility], [address] [place] [address], [address], [place] tel:[phone] *[facility] Surgery clearance (chief complaint) Body mass index [BMI] 29.0-29.9, adultType 2 diabetes mellitus with hyperglycemiaPo lyneuropathyChr onic systolic (congestive) heart failureChronic kidney disease, unspecified CKD stageAt risk for falling 3 No Information [facility], [address] [place] [address], [address], [place] tel:[phone] *[facility] No Information 3 No Information [facility], [address] [place] [address], [address], [place] tel:[phone] *[facility] Polyneuropathy 3 No Information OFFICE/OUTPA TIENT VISIT, [facility], [address] [place] [address], [address], [place] tel:[phone] *[facility] ear pain bilateral (chief complaint)c hronic conditions (chief complaint)e luke (chief complaint)s ore under left breast (chief complaint) Body mass index [BMI] 31.0-31.9, adultCellulitis of breastAcute serous otitis media, bilateralChroni c systolic (congestive) heart failurePolyneur opathyChronic pain of left knee 3 No Information [facility], [address] [place] [address], [address], [place] tel:[phone] *[facility] No Information 3 No Information OFFICE/OUTPA TIENT VISIT, [facility], [address] [place] [address], [address], tel:[phone] *[facility] pain (chief complaint)U TI (chief complaint)c hronic conditions (chief complaint) Pain in unspecified jointChronic kidney disease, unspecified CKD stageType 2 diabetes mellitus with hyperglycemiaBo dy mass index [BMI] 45.0-49.9, adultUTIChronic systolic (congestive) heart failureCardiomy opathy, unspecifiedAt risk for falling 3 No Information [facility], [address] [place] [address], [address], tel:[phone] *[facility] No Information 3 No Information OFFICE/OUTPA TIENT VISIT, [facility], [address] [place] [address], [address], tel:[phone] *[facility] New Patient (chief complaint)c hronic [...] Of Treatment Date Type Action Status Goal Dietary manageme nt education, guidance, and counseling completed Goal Dietary manageme nt education, guidance, and counseling completed Goal Dietary manageme nt education, guidance, and counseling completed Goal Dietary manageme nt education, guidance, and counseling completed Goal Dietary manageme nt education, guidance, and counseling completed Referral Referred To: [address] [place], [place], [phone] Ordered: Referrals: Oncology. [facility]. Evaluate and treat ordered Referral Ordered: tina -Nephrology (related to Type 2 diabetes mellitus with hyperglycemia) ordered Referral Referred To: tina Ordered: Referrals: Nephrology. tina. Location: [place]. Evaluate and treat ordered Referral Referred To: manda prince Ordered: Referrals: Endocrinology, Diabetes and Metabolism. [facility]. Evaluate and treat ordered Referral Ordered: [facility] -Neurology (related to Polyneuropathy) ordered Referral [facility]erred To: [facility] Ordered: Referrals: Neurology. [facility]. Evaluate and treat ordered Referral Referred To: [facility] [address] [address] [place], [place], [id number] Ordered: Referrals: Orthopedic Surgery. [facility]. Location: [facility]. Evaluate and treat ordered Future Order: Radiol ogy Order US ABDOMEN COMPLETE ([id number]), Ordered on: Ordered Future Order: Lab Order CBC w/AU TO DIFF ([id number]), Ordered on: Ordered Future Order: Lab Order COMPREHE NSIVE METABOLIC PANEL ([id number]), Ordered on: Ordered Future Order: Lab Order GLYCOHEM OGLOBIN (A1c) ([id number]), Ordered on: Ordered Future Order: Lab Order Electroc ardiogram ([id number]), Ordered on: Ordered Future Order: Lab Order LIPID PA KAR ([id number]), Ordered on: Ordered Future Order: Lab Order THYROID STIMULATING HORMONE ([id number]), Ordered on: Ordered Future Order: Lab Order BNP (B-t ype Natriuretic Peptide) ([id number]), Sent on: Sent Future Order: Lab Order COMPREHE NSIVE METABOLIC PANEL ([id number]), Sent on: Sent Future Order: Lab Order CBC w/AU TO DIFF ([id number]), Sent on: Sent Future Order: Lab Order Electroc ardiogram ([id number]), Sent on: Sent Future Order: Radiol ogy Order CHEST 2 VW FRONT & LAT ([id number]), Sent on: Sent Future Order: Radiol ogy Order KNEE, LEFT, (1 OR 2 VIEWS) ([id number]), Ordered on: Ordered History Of Present Illness Encounter Date Complaint History Of Prese nt Illness Refills Patient here [facility] for med refills. Diabetes Risk factors inc lude age > 50 years. Risk factors excluded are depression, smoking and steroid use. Comorbid conditions include stroke. Surgery clearance Patient here t josué for medical clearance. chronic conditions sore under left breast edema ear pain bilateral chronic conditions 1) Chronic ki dney disease, unspecified CKD stage (Recurrent.) 2) Type 2 diabetes mellitus with hyperglycemia (Chronic.) Associated symptoms include fatigue. pain Patient having p ain in lower back, legs, feet and shoulders. UTI Associated sympt oms include fatigue. Pertinent negatives include abdominal pain, dysuria, frequency or retention. Additional information: Patient here today due to possible UTI. New Patient Patient here zoey payton as a new patient. chronic conditions 1) [...]
--- OUTSIDE RECORDS SUMMARY | 2024-10-28 12:34 | XMS_ITS | Clinical Summary ---
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 Name Role Phone Rose Conn MD Unavailable Keith Goodwin MD Unavailable Ace Honeycutt MD Primary Care Provider [phone] Allergies Active Allergy Reactions Criticality Noted Date Comments Cephalexin Unknown,Hives,Other (see comment) High 10/18/2015 hives Reaction: Unknown, , Codeine Unknown,Itching,Othe r (see comment) High 10/18/2015 Reaction: Unknown, , Erythromycin Unknown,Nausea and Vomiting,Vomiting High 10/18/2015 Insulin Glargine Unknown,Swelling Low 04/27/2022 Metformin Other (see comment) 09/14/2023 Medications HYDROcodone-pankaj taminophen (NORCO) 5-325 MG tablet Take 2 tablets by mouth 2 (two) times daily as needed for Pain. Active insulin aspart (NOVOLOG) 100 UNIT/ML injection (PEN) Inject 8 Units into the skin 3 (three) times daily before meals. + SLIDING SCALE Active Continuous Blood Gluc Sensor (FREESTYLE DUONG 2 SENSOR) [facility] 024 Active REGRANEX 0.01 % Gel APPLY TO WOUND ONCE A DAY 025 Active insulin detemir (LEVEMIR FLEXPEN) 100 UNIT/ML PEN Inject 46 Units into the skin nightly. 023 Active omeprazole (PRILOSEC) 40 MG capsule Take 1 capsule (40 mg total) by mouth daily. Active lubiprostone (AMITIZA) 24 MCG capsule Take 1 capsule (24 mcg total) by mouth 2 (two) times daily with meals. Active OXYGEN CONCENTRATOR SUPPLY, DME,Indications :CHF (congestive heart failure) ([facility]) 1 Device by Nasal route continuous. Nasal cannula needed. Portable oxygen concentrator pulse setting 2 1 Device Active acetaminophen (TYLENOL) 325 MG tablet Take 2 tablets (650 mg total) by mouth every 4 (four) hours as needed. 30 tablet 025 2024 Active aspirin EC (ECOTRIN) 81 MG tablet Take 1 tablet (81 mg total) by mouth daily. 90 tablet 3 Active atorvastatin (LIPITOR) 80 MG tablet Take 1 tablet (80 mg total) by mouth daily. 30 tablet Active ezetimibe (ZETIA) 10 MG tablet Take 1 tablet (10 mg total) by mouth daily. 30 tablet Active bumetanide (BUMEX) 2 MG tablet Take 1 tablet (2 mg total) by mouth 3 (three) times daily for 30 days. 90 tablet 2024 Active cyclobenzaprine (FLEXERIL) 10 MG tablet Take 1 tablet (10 mg total) by mouth 3 (three) times daily as needed for Muscle Spasms. 30 tablet 2024 Active gabapentin (NEURONTIN) 400 MG capsule Take 3 capsules (1,200 mg total) by mouth nightly at bedtime for 30 days. 90 capsule 025 2024 Active gabapentin (NEURONTIN) 400 MG capsule Take 1 capsule (400 mg total) by mouth daily for 30 days. 90 capsule 2024 Active metoprolol succinate ER (TOPROL-XL) 25 MG 24 hr tablet Take 1 tablet (25 mg total) by mouth daily for 30 days. 30 tablet 025 2024 Active rivaroxaban (XARELTO) 20 MG Tab tabletIndicatio ns:Atrial Fibrillation Take 1 tablet (20 mg total) by mouth daily with supper. Indications: Atrial Fibrillation Take with food 30 tablet Active albuterol (PROVENTIL) (5 MG/ML) 0.5% nebulizer solution Take 1 mL (5 mg total) by nebulization every 4 (four) hours as needed for Shortness of breath. 20 mL 2024 Active famotidine (PEPCID) 20 MG tablet Take 1 tablet (20 mg total) by mouth nightly for 30 days. 60 tablet 2024 Active ferrous sulfate, 65 mg elemental, 325 (65 FE) MG tablet Take 1 tablet (325 mg total) by mouth daily with breakfast for 30 days. 30 tablet 2024 Active guaiFENesin ER (MUCINEX) 600 MG 12 hr tablet Take 1 tablet (600 mg total) by mouth 2 (two) times daily for 30 days. 28 tablet 2024 Active ipratropium-alb uterol (DUONEB) 0.5-2.5 (3) MG/3ML Solution Take 3 mLs by nebulization every 4 (four) hours for 30 days. 360 mL 2024 Active lidocaine 4 % patch Place 1 patch onto the skin daily. Remove & Discard patch within 12 hours or as directed by 30 patch Active potassium chloride CR (KLOR-CON M) 20 MEQ tablet Take 1 tablet (20 mEq total) by mouth 3 (three) times daily for 30 days. 90 tablet 2024 Active sodium chloride 7 % Nebu Soln Take 4 mLs by nebulization 2 (two) times daily for 30 days. 240 mL 2024 Active tirzepatide (MOUNJARO) 2.5 MG/0.5ML injection Inject 1 mg into the skin every 7 days. 2024 Discontinued(E rror) ezetimibe (ZETIA) 10 MG tablet Take 1 tablet (10 mg total) by mouth daily. 2024 Discontinued atorvastatin (LIPITOR) 80 MG tablet Take 1 tablet (80 mg total) by mouth daily. 023 2024 Discontinued aspirin EC (ECOTRIN) 81 MG tablet Take 1 tablet (81 mg total) by mouth daily. 90 tablet 3 024 2024 Discontinued(E rror) gabapentin (NEURONTIN) 300 MG capsule Take 4 capsules (1,200 mg total) by mouth nightly. 400 in am and 1200 at hs 024 2024 Discontinued(S top Taking at Discharge) FARXIGA 10 MG tablet Take 1 tablet (10 mg total) by mouth daily. 023 2024 Discontinued(S top Taking at Discharge) cyclobenzaprine (FLEXERIL) 5 MG tablet Take 1 tablet (5 mg total) by mouth 3 (three) times daily as needed for Muscle Spasms. 2024 Discontinued(S top Taking at Discharge) metoprolol succinate ER 25 MG Capsule ER 24 Hour Sprinkle 24 hr sprinkle capsule Take 12.5 mg by mouth daily. 023 2024 Discontinued(S top Taking at Discharge) rivaroxaban (XARELTO) 20 MG Tab tablet Take 0.5 tablets (10 mg total) by mouth daily with supper. 30 tablet 6 024 2024 Discontinued(S top Taking at Discharge) Senna (SENOKOT) 8.6 MG tablet Take 1 tablet (8.6 mg total) by mouth daily. 2024 Discontinued(E rror) bumetanide (BUMEX) 2 MG tablet Take 1 tablet (2 mg total) by mouth 2 (two) times daily. 2024 Discontinued(S top Taking at Discharge) celecoxib (CELEBREX) 200 MG capsule Take 1 capsule (200 mg total) by mouth 2 (two) times daily. 2024 Discontinued aspirin EC (ECOTRIN) 81 MG tablet Take 1 tablet (81 mg total) by mouth daily. 90 tablet 3 025 2024 Discontinued bumetanide (BUMEX) 2 MG tablet Take 1 tablet (2 mg total) by mouth 3 (three) times daily for 30 days. 90 tablet 025 2024 Discontinued cyclobenzaprine (FLEXERIL) 10 MG tablet Take 1 tablet (10 mg total) by mouth 3 (three) times daily as needed for Muscle Spasms. 30 tablet 2024 Discontinued gabapentin (NEURONTIN) 400 MG capsule Take 3 capsules (1,200 mg total) by mouth nightly at bedtime for 30 days. 90 capsule 2024 Discontinued gabapentin (NEURONTIN) 400 MG capsule Take 1 capsule (400 mg total) by mouth daily for 30 days. 90 capsule 2024 Discontinued metoprolol succinate ER (TOPROL-XL) 25 MG 24 hr tablet Take 1 tablet (25 mg total) by mouth daily for 30 days. 30 tablet 2024 Discontinued albuterol (PROVENTIL) (5 MG/ML) 0.5% nebulizer solution Take 1 mL (5 mg total) by nebulization every 4 (four) hours as needed for Shortness of breath. 20 mL 2024 Discontinued famotidine (PEPCID) 20 MG tablet Take 1 tablet (20 mg total) by mouth nightly for 30 days. 60 tablet 2024 Discontinued ferrous sulfate, 65 mg elemental, 325 (65 FE) MG tablet Take 1 tablet (325 mg total) by mouth daily with breakfast for 30 days. 30 tablet 2024 Discontinued guaiFENesin ER (MUCINEX) 600 MG 12 hr tablet Take 1 tablet (600 mg total) by mouth 2 (two) times daily for 30 days. 28 tablet 2024 Discontinued ipratropium-alb uterol (DUONEB) 0.5-2.5 (3) MG/3ML Solution Take 3 mLs by nebulization every 4 (four) hours for 30 days. 360 mL 2024 Discontinued lidocaine 4 % patch Place 1 patch onto the skin daily. Remove & Discard patch within 12 hours or as directed by 30 patch 2024 Discontinued polyethylene glycol (GLYCOLAX) packet Take 240 mLs (17 g total) by mouth daily for 3 days. Dissolve powder in 240 mL water 3 each 2024 Discontinued potassium chloride CR (KLOR-CON M) 20 MEQ tablet Take 1 tablet (20 mEq total) by mouth 3 (three) times daily for 30 days. 90 tablet 025 2024 Discontinued sodium chloride 7 % Nebu Soln Take 4 mLs by nebulization 2 (two) times daily for 30 days. 240 mL 025 2024 Discontinued rivaroxaban (XARELTO) 20 MG Tab tabletIndicatio ns:Atrial Fibrillation Take 1 tablet (20 mg total) by mouth daily with supper. Indications: Atrial Fibrillation Take with food 30 tablet 2024 Discontinued celecoxib (CELEBREX) 200 MG capsule Take 1 capsule (200 mg total) by mouth 2 (two) times daily for 7 days. 14 capsule 025 2024 bumetanide (BUMEX) 2 MG tablet Take 1 tablet (2 mg total) by mouth 3 (three) times daily for 30 days. 90 tablet 2024 Discontinued cyclobenzaprine (FLEXERIL) 10 MG tablet Take 1 tablet (10 mg total) by mouth 3 (three) times daily as needed for Muscle Spasms. 30 tablet 2024 Discontinued polyethylene glycol (GLYCOLAX) packet Take 240 mLs (17 g total) by mouth daily for 3 days. 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, limited to breakdown of skin ([facility] HHS/[facility]) 09/15/2023 Diabetic ulcer of right heel associated with type 2 diabetes mellitus, limited to breakdown of skin ([facility]) Encounters Date Type Department Care Team Description 10/24/2024 Hospital Follow-up Call [facility] [address] [place], [place] [id number] Florinda Shanks RN 10/19/2024 Travel 10/15/2024 12:14 PM HI LO DRIVER - 10/20/2024 4:19 PM CDT Hospital Encounter [facility] [address] [place] [address] Balaji Woodward MD Boddu, Lavanya, MD Discharge Disposition: Home or Self Care (Routine Discharge) 10/14/2024 7:19 PM HI LO DRIVER Anesthesia Event [facility] [address] [place] [address] Jeffery Escobar CRNA 10/14/2024 4:10 PM HI LO DRIVER - 10/15/2024 11:11 AM HI LO DRIVER Hospital Encounter [facility] [address] [place] [address] Matt Mixon DO Dufner, Anastasia M, MD Wujek, Daniel A, MD Breathing Problem Discharge Disposition: Transfer to [facility] 10/14/2024 Travel 09/11/2024 12:52 PM HI LO DRIVER - 09/12/2024 11:41 PM HI LO DRIVER Emergency [facility] [address] [place] [address] [place] [address] Malena Cortez MD Sprague, Robert, DO Nausea Discharge Disposition: Transfer to [facility] 09/11/2024 Travel 08/31/2024 9:00 AM HI LO DRIVER Office Visit [facility] [address] [place] [address] Pavithra Mclean MD Gallbladder (MATERIAL SCHEDULER, gallstones) 08/31/2024 Travel 08/23/2024 Abstract [facility] [address] [place] [address] Abstract, Doc Pccl 08/19/2024 7:19 AM HI LO DRIVER - 08/19/2024 10:[address] [facility] Emergency [facility] [address] [place] [address] [place] [address] Marciano Mora DO Abdominal Pain; Edema Discharge Disposition: Home or Self Care (Routine Discharge) 08/19/2024 Travel 08/12/2024 Transcribe Orders [facility] Pre Access Team [address] [place] [address] Pravin Oneill NP 08/01/2024 11:13 AM HI LO DRIVER - 08/01/2024 11:59 PM HI LO DRIVER Hospital Encounter [facility] [address] [place] [address] Lorenza Inman MD Discharge Disposition: Home or Self Care (Routine Discharge) 08/01/2024 Orders Only [facility] [address] [place] [address] Pravin Oneill NP 08/01/2024 Travel from Last 3 Months Family History [...] drink = 0.6 oz pur e alcohol) [facility] Utilities Answer Date Recorded In the past 12 months has [employer], gas, oil, or water [email or web address] threatened to shut off services in your [...] any time in the past [address] [facility], were you homeless or living in a alf (including now)? No 10/15/2024 Comments No Sex and Gender Information Value Date Recorded Sex Assigned at Female 08/31/2024 8:28 AM HI LO DRIVER Legal Sex Female 8:37 PM CDT Gender Identity Not on file Sexual Orientation Not on file Last Filed Vital Signs Vital Sign Reading Time Taken Comments Blood Pressure 131/58 10/20/2024 8:46 AM CDT Pulse 101 10/20/2024 8:46 AM CDT Temperature 36.7 C (98.1 F) 10/20/2024 4:20 AM CDT Respiratory Rate 17 10/20/2024 4:20 AM CDT Oxygen Saturation 93% 10/20/2024 4:20 AM CDT Inhaled Oxygen Concentration - - Weight 109.1 kg (240 lb 8.4 oz) 10/20/2024 5:00 AM CDT Height 165.1 cm (5' 5 ) 10/19/2024 12:0 9 AM CDT Body Mass Index 40.02 10/19/2024 12:09 AM CDT Plan of Treatment Upcoming Encounters Date Type Department Care Team (Late st Contact Info) Description 01/10/2025 12:[address] [facility] [address] [place] [address] Rose Conn MD [address] [place] [address] 01/10/2025 1:30 PM CDT Appointment [facility] [address] [place] [address] [place] [address] Rose Conn MD [address] [place] [address] 01/20/2025 3:15 PM CDT Office Visit [facility] [place] [address] Rose Conn MD [address] [place] [address] Health Maintenance Due Date Last Done Comments Colorectal Cancer Screening Colonoscopy (10 Years) 1974 Annual Physical 1977 Pneumococcal Vaccine: Pediatrics (0 to 5 Years) and At-Risk Patients (6 to 64 Years) (1 of 2 - PCV) 1980 Diabetes: Retinopathy Eye Exam 1992 Hepatitis C 1992 DTaP, Tdap and Td Vaccines (1 - Tdap) 1993 Hepatitis B Vaccines (1 of 3 - 19+ 3-dose series) 1993 Mammogram Screening 2014 COVID-19 Vaccine (1 - season) 2024 Influenza Adult (#1) 2024 PHQ-2 (Physician [place]) 08/10/2024 ASCVD LDL 09/15/2024 09/15/2023 Lipid Panel 09/15/2024 09/15/2023, 04/20/2021 Hemoglobin A1C 04/18/2025 10/16/2024, 02/0 11/2024, 06/09/2023, Additional history exists Kidney Health Evaluation 10/19/2025 10/19/2024 Meningococcal B Vaccine Aged Out No l onger eligible based on patient's age to complete this topic Meningococcal Vaccine Aged Out No cyrus darnell eligible based on patient's age to complete this topic RSV Immunizations Under 20 Months Aged Out No longer eligible based on patient's age to complete this topic Procedures Procedure Name Priority Date/Time Associated Diagnosis Comments CBC W/DIFF AUTOMATED Routine 10/20/2024 1:58 PM CDT IMMUNOFIXATION, URINE Routine 10/20/2024 11:30 AM CDT HC URINALYSIS AUTO W/MICRO Nurse Collected Priority 10/20/2024 11:30 AM CDT PROTEIN ELECTROPHORESIS URINE RANDOM Nurse Collected Priority 10/20/2024 11:30 AM CDT POCT GLUCOSE - CHISHOLM DOCKED DEVICE Routine 10/20/2024 11:20 AM CDT POCT GLUCOSE - CHISHOLM DOCKED DEVICE Routine 10/20/2024 6:05 AM CDT MAGNESIUM Routine 10/20/2024 2:30 AM CDT BASIC METABOLIC PANEL Routine 10/20/2024 2:30 AM CDT CBC W/DIFF AUTOMATED Routine 10/20/2024 2:30 AM CDT RENAL FUNCTION PANEL Routine 10/19/2024 11:44 PM CDT POCT GLUCOSE - CHISHOLM DOCKED DEVICE Routine 10/19/2024 9:53 PM CDT POCT GLUCOSE - CHISHOLM DOCKED DEVICE Routine 10/19/2024 5:36 PM CDT ALBUMIN URINE RANDOM W/CREATININE Nurse Collected Priority 10/19/2024 4:19 PM CDT USV JUSTIN DUPLEX LOW EXT MANPREET Today 10/19/2024 3:17 PM CDT HOME O2 EVAL Routine 10/19/2024 1:25 PM CDT POCT GLUCOSE - CHISHOLM DOCKED DEVICE Routine 10/19/2024 10:45 AM CDT POCT GLUCOSE - CHISHOLM DOCKED DEVICE Routine 10/19/2024 5:55 AM CDT MAGNESIUM Routine 10/19/2024 4:43 AM CDT BASIC METABOLIC PANEL Routine 10/19/2024 4:43 AM CDT CBC W/DIFF AUTOMATED Routine 10/19/2024 4:43 AM CDT POCT GLUCOSE - CHISHOLM DOCKED DEVICE Routine 10/18/2024 9:17 PM CDT POCT GLUCOSE - CHISHOLM DOCKED DEVICE Routine 10/18/2024 4:35 PM CDT POCT GLUCOSE - CHISHOLM DOCKED DEVICE Routine 10/18/2024 11:01 AM CDT BASIC METABOLIC PANEL Routine 10/18/2024 8:01 AM CDT POCT GLUCOSE - HCISHOLM DOCKED DEVICE Routine 10/18/2024 6:54 AM CDT PHOSPHORUS, INORGANIC PHOSPHATE Routine 10/18/2024 3:09 AM CDT MAGNESIUM Routine 10/18/2024 3:09 AM CDT BASIC METABOLIC PANEL Routine 10/18/2024 3:09 AM CDT CBC, AUTO, NO DIFF Routine 10/18/2024 3:09 AM CDT POCT GLUCOSE - CHISHOLM DOCKED DEVICE Routine 10/18/2024 12:22 AM CDT POCT GLUCOSE - CHISHOLM DOCKED DEVICE Routine 10/17/2024 8:37 PM CDT POCT GLUCOSE - CHISHOLM DOCKED DEVICE Routine 10/17/2024 4:34 PM CDT CULTURE, BACTERIA, BLOOD Routine 10/17/2024 2:27 PM CDT POCT GLUCOSE - CHISHOLM DOCKED DEVICE Routine 10/17/2024 10:08 AM CDT PROTHROMBIN TIME, VENOUS Routine 10/17/2024 1:45 AM CDT HEPARIN, ANTI XA, UFH Routine 10/17/2024 1:45 AM CDT PHOSPHORUS, INORGANIC PHOSPHATE Routine 10/17/2024 1:45 AM CDT MAGNESIUM Routine 10/17/2024 1:45 AM CDT BASIC METABOLIC PANEL Routine 10/17/2024 1:45 AM CDT CBC, AUTO, NO DIFF Routine 10/17/2024 1:45 AM CDT POCT GLUCOSE - CHISHOLM DOCKED DEVICE Routine 10/16/2024 8:24 PM CDT HEMOGLOBIN AND HEMATOCRIT Routine 10/16/2024 8:00 PM CDT POCT ACUTE VENOUS PANEL Routine 10/16/2024 5:14 PM CDT MAGNESIUM TIMED 10/16/2024 5:10 PM CDT RENAL FUNCTION PANEL TIMED 10/16/2024 5:10 PM CDT HEPARIN, ANTI XA, UFH TIMED 10/16/2024 5:10 PM CDT POCT GLUCOSE - CHISHOLM DOCKED DEVICE Routine 10/16/2024 4:57 PM CDT POCT ACUTE ARTERIAL PANEL Routine 10/16/2024 12:12 PM CDT HEPARIN, ANTI XA, UFH TIMED 10/16/2024 12:08 PM CDT POCT GLUCOSE - CHISHOLM DOCKED DEVICE Routine 10/16/2024 11:14 AM CDT ECG 12-LEAD Routine 10/16/2024 9:01 AM CDT HC INFECT AGENT DETECT OPTICAL Nurse Collected Priority 10/16/2024 7:00 AM CDT LEGIONELLA AG URINE Nurse Collected Priority 10/16/2024 7:00 AM CDT ALBUMIN URINE RANDOM W/CREATININE Nurse Collected Priority 10/16/2024 7:00 AM CDT UREA NITROGEN URINE RANDOM Nurse Collected Priority 10/16/2024 7:00 AM CDT POCT GLUCOSE - CHISHOLM DOCKED DEVICE Routine 10/16/2024 6:18 AM CDT PROTHROMBIN TIME, VENOUS STAT 10/16/2024 5:45 AM CDT HEPARIN, ANTI XA, UFH STAT 10/16/2024 5:45 AM CDT POCT GLUCOSE - CHISHOLM DOCKED DEVICE Routine 10/16/2024 4:49 AM CDT XR CHEST PORTABLE STAT 10/16/2024 4:40 AM CDT LACTIC ACID Routine 10/16/2024 4:00 AM CDT HEMOGLOBIN, GLYCOSYLATED Routine 10/16/2024 4:00 AM CDT PHOSPHORUS, INORGANIC PHOSPHATE Routine 10/16/2024 4:00 AM CDT MAGNESIUM Routine 10/16/2024 4:00 AM CDT BASIC METABOLIC PANEL Routine 10/16/2024 4:00 AM CDT CBC, AUTO, NO DIFF Routine 10/16/2024 4:00 AM CDT POCT ACUTE VENOUS PANEL Routine 10/16/2024 3:10 AM CDT TRANSFUSE RED BLOOD CELLS Routine 10/16/2024 12:45 AM HI LO DRIVER POCT GLUCOSE - CHISHOLM DOCKED DEVICE Routine 10/16/2024 12:11 AM HI LO DRIVER HC BLOOD TYPING ABO Routine 10/15/2024 8:00 PM HI LO DRIVER HEMOGLOBIN AND HEMATOCRIT Routine 10/15/2024 8:00 PM HI LO DRIVER TROPONIN, QUANT Routine 10/15/2024 8:00 PM HI LO DRIVER POCT GLUCOSE - CHISHOLM DOCKED DEVICE Routine 10/15/2024 7:[address] LO [address] CT ABD+PEL WO CON STAT 10/15/2024 6:00 PM HI LO DRIVER CULTURE, BACTERIA, BLOOD Routine 10/15/2024 3:43 PM HI LO DRIVER TYPE & SCREEN Routine 10/15/2024 3:43 PM HI LO DRIVER PROTHROMBIN TIME, VENOUS Routine 10/15/2024 3:43 PM HI LO DRIVER CBC W/DIFF AUTOMATED Routine 10/15/2024 3:43 PM HI LO DRIVER CALCIUM, IONIZED Routine 10/15/2024 3:43 PM HI LO DRIVER HEPATIC FUNCTION PANEL Routine 10/15/2024 3:43 PM HI LO DRIVER THYROID STIM HORMONE TSH Routine 10/15/2024 3:43 PM HI LO DRIVER PHOSPHORUS, INORGANIC PHOSPHATE Routine 10/15/2024 3:43 PM HI LO DRIVER LACTIC ACID Routine 10/15/2024 3:43 PM HI LO DRIVER MAGNESIUM Routine 10/15/2024 3:43 PM HI LO DRIVER TROPONIN, QUANT Routine 10/15/2024 3:43 PM HI LO DRIVER BASIC METABOLIC PANEL Routine 10/15/2024 3:43 PM HI LO DRIVER PRO-BRAIN NATRIURETIC PEPTIDE STAT 10/15/2024 3:43 PM HI LO DRIVER US RETROPERITONEAL LTD Today 10/15/2024 3:21 PM HI LO DRIVER POCT GLUCOSE - CHISHOLM DOCKED DEVICE Routine 10/15/2024 3:07 PM HI LO DRIVER USE ECHOCARDIOGRAM W CON Routine 10/15/2024 2:34 PM HI LO DRIVER CULTURE LOWER RESPIRATORY W/GRAM STAIN Nurse Collected Priority 10/15/2024 2:20 PM HI LO DRIVER XR CHEST PORTABLE Routine 10/15/2024 1:43 PM HI LO DRIVER RESPIRATORY PCR PANEL 2 Nurse Collected Priority 10/15/2024 1:32 PM HI LO DRIVER ECG 12-LEAD STAT 10/15/2024 1:14 PM HI LO DRIVER MRSA SCREENING Nurse Collected Priority 10/15/2024 12:54 PM HI LO DRIVER HC URINALYSIS AUTO W/MICRO Nurse Collected Priority 10/15/2024 12:54 PM HI LO DRIVER URINE BACTERIA CULTURE Nurse Collected Priority 10/15/2024 12:53 PM HI LO DRIVER POCT GLUCOSE - CHISHOLM DOCKED DEVICE Routine 10/15/2024 12:37 PM HI LO DRIVER POCT GLUCOSE - CHISHOLM DOCKED DEVICE Routine 10/15/2024 11:02 AM HI LO DRIVER ECG 12-LEAD Routine 10/15/2024 9:32 AM HI LO DRIVER CARDIAC PROFILE Routine 10/15/2024 9:20 AM HI LO DRIVER BLOOD GAS, VENOUS STAT 10/15/2024 8:37 AM HI LO DRIVER XR CHEST PORTABLE STAT 10/15/2024 8:32 AM HI LO DRIVER TRANSFUSE RED BLOOD CELLS Routine 10/15/2024 8:20 AM HI LO DRIVER TYPE & SCREEN Routine 10/15/2024 5:17 AM HI LO DRIVER LACTIC ACID STAT 10/15/2024 5:17 AM HI LO DRIVER POCT GLUCOSE - CHISHOLM DOCKED DEVICE Routine 10/15/2024 4:37 AM HI LO DRIVER FOLIC ACID SERUM Routine 10/15/2024 4:24 AM HI LO DRIVER VITAMIN B-12 Routine 10/15/2024 4:24 AM HI LO DRIVER RETICULOCYTE CT, AUTO Routine 10/15/2024 4:24 AM HI LO DRIVER FERRITIN Routine 10/15/2024 4:24 AM HI LO DRIVER IRON SAT PANEL (IRON,IBC,%SAT) Routine 10/15/2024 4:24 AM HI LO DRIVER COMPREHENSIVE METABOLIC PANEL STAT 10/15/2024 4:24 AM HI LO DRIVER CBC W/DIFF AUTOMATED STAT 10/15/2024 4:24 AM HI LO DRIVER POCT GLUCOSE - CHISHOLM DOCKED DEVICE Routine 10/14/2024 11:39 PM HI LO DRIVER URINE BACTERIA CULTURE STAT 10/14/2024 8:10 PM HI LO DRIVER HC URINALYSIS AUTO W/MICRO STAT 10/14/2024 8:10 PM HI LO DRIVER IV PLACEMENT Routine 10/14/2024 7:00 PM HI LO DRIVER CULTURE, BACTERIA, BLOOD Routine 10/14/2024 6:42 PM HI LO DRIVER CULTURE, BACTERIA, BLOOD Routine 10/14/2024 6:37 PM HI LO DRIVER XR CHEST PA+LAT STAT 10/14/2024 5:26 PM HI LO DRIVER PRO-BRAIN NATRIURETIC PEPTIDE STAT 10/14/2024 5:09 PM HI LO DRIVER MAGNESIUM STAT 10/14/2024 5:09 PM HI LO DRIVER COMPREHENSIVE METABOLIC PANEL STAT 10/14/2024 5:09 PM HI LO DRIVER CBC W/DIFF AUTOMATED STAT 10/14/2024 5:09 PM HI LO DRIVER BLOOD GAS, ARTERIAL LAB STAT 10/14/2024 4:56 PM HI LO DRIVER POCT GLUCOSE - CHISHOLM DOCKED DEVICE Routine 10/14/2024 4:44 PM HI LO DRIVER POCT GLUCOSE - CHISHOLM DOCKED DEVICE Routine 09/12/2024 11:33 PM HI LO DRIVER POCT GLUCOSE - CHISHOLM DOCKED DEVICE Routine 09/12/2024 10:56 PM HI LO DRIVER BLOOD GAS, ARTERIAL LAB STAT 09/12/2024 10:33 PM HI LO DRIVER ECG 12-LEAD Routine 09/12/2024 10:25 PM HI LO DRIVER POCT GLUCOSE - CHISHOLM DOCKED DEVICE Routine 09/12/2024 9:49 PM HI LO DRIVER BLOOD GAS, ARTERIAL LAB STAT 09/12/2024 9:06 PM HI LO DRIVER BETA-HYDROXYBUTYRATE STAT 09/12/2024 9:06 PM HI LO DRIVER BASIC METABOLIC PANEL STAT 09/12/2024 9:06 PM HI LO DRIVER POCT GLUCOSE - CHISHOLM DOCKED DEVICE Routine 09/12/2024 8:48 PM HI LO DRIVER PARTIAL THROMBOPLASTIN TIME,PTT STAT 09/12/2024 8:20 PM HI LO DRIVER COMPREHENSIVE METABOLIC PANEL STAT 09/12/2024 6:34 PM HI LO DRIVER ECG 12-LEAD STAT 09/12/2024 6:33 PM HI LO DRIVER TROPONIN, QUANT STAT 09/12/2024 6:32 [address] [place] [address] HEAD WO CON STAT 09/12/2024 6:27 PM HI LO DRIVER XR CHEST PORTABLE STAT 09/12/2024 6:27 PM HI LO DRIVER PARTIAL THROMBOPLASTIN TIME,PTT STAT 09/12/2024 2:23 PM HI LO DRIVER ECG 12-LEAD Routine 09/12/2024 10:41 AM HI LO DRIVER PARTIAL THROMBOPLASTIN TIME,PTT STAT 09/12/2024 6:18 AM HI LO DRIVER PROTHROMBIN TIME, VENOUS STAT 09/12/2024 6:18 AM HI LO DRIVER CBC W/DIFF AUTOMATED STAT 09/12/2024 6:18 AM HI LO DRIVER HEPARIN, ANTI XA, UFH STAT 09/12/2024 6:17 AM HI LO DRIVER POCT GLUCOSE - CHISHOLM DOCKED DEVICE Routine 09/12/2024 3:18 AM HI LO DRIVER PARTIAL THROMBOPLASTIN TIME,PTT STAT 09/12/2024 12:16 AM HI LO DRIVER PARTIAL THROMBOPLASTIN TIME,PTT STAT 09/11/2024 4:02 PM HI LO DRIVER CULTURE, BACTERIA, BLOOD STAT 09/11/2024 3:53 PM HI LO DRIVER TROPONIN, QUANT TIMED 09/11/2024 3:[address] LO [address] CHEST+ABD+PEL WO CON STAT 09/11/2024 1:56 PM HI LO DRIVER PROTHROMBIN TIME, VENOUS STAT 09/11/2024 1:39 PM HI LO DRIVER HEPARIN, ANTI XA, UFH STAT 09/11/2024 1:39 PM HI LO DRIVER BLOOD GAS, VENOUS STAT 09/11/2024 1:39 PM [place] LO DRIVER MAGNESIUM STAT 09/11/2024 1:39 PM [place] LO DRIVER LACTIC ACID W REFLEX (SEPSIS) STAT 09/11/2024 1:39 PM [place] LO DRIVER TROPONIN, QUANT STAT 09/11/2024 1:39 PM HI LO DRIVER COMPREHENSIVE METABOLIC PANEL STAT 09/11/2024 1:39 PM [place] LO DRIVER CBC W/DIFF AUTOMATED STAT 09/11/2024 1:39 PM HI LO DRIVER POCT GLUCOSE - CH[place]OL[place] DOCKED DEVICE Routine 09/11/2024 1:37 PM HI LO DRIVER ECG 12-LEAD Routine 09/11/2024 1:32 PM [place] LO DRIVER URINE BACTERIA CULTURE STAT 09/11/2024 1:12 PM HI LO DRIVER HC URINALYSIS AUTO W/MICRO STAT 09/11/2024 1:12 PM HI LO DRIVER HC URINALYSIS AUTO W/MICRO STAT 08/19/2024 9:04 AM [place] LO DRIVER POCT GLUCOSE - CHISHOLM DOCKED DEVICE Routine 08/19/2024 8:54 AM HI LO DRIVER XR CHEST PORTABLE STAT 08/19/2024 8:16 AM [place] LO DRIVER CT ABD+PEL WO CON STAT 08/19/2024 8:07 AM HI LO DRIVER PRO-BRAIN NATRIURETIC PEPTIDE STAT 08/19/2024 8:01 AM [place] LO DRIVER TROPONIN, QUANT STAT 08/19/2024 8:01 AM [place] LO DRIVER LIPASE STAT 08/19/2024 8:01 AM [place] LO DRIVER AMYLASE STAT 08/19/2024 8:01 AM [place] LO DRIVER COMPREHENSIVE METABOLIC PANEL STAT 08/19/2024 8:01 AM [place] LO DRIVER CBC W/DIFF AUTOMATED STAT 08/19/2024 8:01 AM [place] LO DRIVER ECG 12-LEAD STAT 08/19/2024 7:48 AM [place] LO DRIVER COMPREHENSIVE METABOLIC PANEL Routine 08/01/2024 11:40 AM [place] LO DRIVER Alkaline phosphatase elevation LIPID PANEL Routine 09/15/2023 9:04 AM [place] LO DRIVER Familial hypercholesterolemia from Last 3 Months or Most Recently Relevant to Health Maintenance Results * (ABNORMAL) CBC W/DIFF AUTOMATED (10/20/2024 1:58 PM CDT) Only the most recent of9 resultswithin the time period is included. WBC 10.26 4.00 - 10.80 x10'3/uL 10/20/2024 2:15 PM CDT [facility] RBC 3.11(L) 4.10 - 5.40 x10'6/uL 10/20/2024 2:15 PM CDT [facility] HGB 8.8(L) 12.0 - 16.0 G/DL 10/20/2024 2:15 PM CDT [facility] HCT 29.2(L) 36.0 - 47.0 % 10/20/2024 2:15 PM CDT [facility] MCV 93.9 78.0 - 100.0 FL 10/20/2024 2:15 PM CDT [facility] MCH 28.3 27.0 - 31.0 PG 10/20/2024 2:15 PM CDT [facility] MCHC 30.1(L) 33.0 - 36.0 G/DL 10/20/2024 2:15 PM CDT [facility] RDW 18.4(H) 11.5 - 14.5 % 10/20/2024 2:15 PM CDT [facility] PLT 256 150 - 350 x10'3/uL 10/20/2024 2:15 PM CDT [facility] MPV 10.8(H) 7.4 - 10.4 FL 10/20/2024 2:15 PM CDT [facility] DIFFERENTIAL TYPE AUTOMATED DIFFERENTIAL 10/20/2024 2:15 PM CDT [facility] SEG NEUTROPHILS 72.9 % 2:15 PM CDT [facility] LYMPHOCYTES 15.0 % 10/20/2024 2:15 PM CDT [facility] MONOCYTES 9.4 % 10/20/2024 2:15 PM CDT [facility] EOSINOPHILS 2.0 % 10/20/2024 2:15 PM CDT [facility] BASOPHILS 0.1 % 10/20/2024 2:15 PM CDT [facility] IMMATURE GRANS % 0.6 % 10/21/19 2:15 PM CDT [facility] ABS. NEUTROPHILS 7.48 1.60 - 8.30 x10'3/uL 10/20/2024 2:15 PM CDT [facility] ABS. LYMPHOCYTES 1.54 0.80 - 4.70 x10'3/uL 10/20/2024 2:15 PM CDT [facility] ABS. MONOCYTES 0.96 0.00 - 1.50 x10'3/uL 10/20/2024 2:15 PM CDT [facility] ABS. EOSINOPHILS 0.21 0.00 - 0.40 x10'3/uL 10/20/2024 2:15 PM CDT [facility] ABS. BASOPHILS 0.01 0.00 - 0.20 x10'3/uL 10/20/2024 2:15 PM CDT [facility] ABS. IMMATURE GRANULOCYTES 0.06(H) 0.00 - 0.03 x10'3/uL 10/20/2024 2:15 PM CDT [facility] ABS. NUCLEATED RBC'S 0.00 0.00 - 0.01 x10'3/uL 10/20/2024 2:15 PM CDT [facility] NRBC % 0.0 % 10/20/2024 2:15 PM CDT [facility] 10/20/2024 1:58 PM CDT Mari Galeas MD LABORATORY Final Result Performing Organization Address [facility] Co de Phone Number [facility] [address] [place] [address], [phone] * IMMUNOFIXATION, URINE (10/20/2024 11:30 AM CDT) IMMUNOFIXATION URINE SEE PATHOLOGIST'S INTERPRETATION 10/21/2024 12:52 PM CDT [facility] IMMUNOFIXATION INTERPRETATION (U) THIS URINE IMMUNOTYPING WAS INTERPRETED BY 10/24/2024 10:22 AM CDT [facility] Comment: MD PATTY MAGANA PROTEIN NOT DETECTED. 10/20/2024 11:3 0 AM CDT Maris Aguilar MATERIAL SCHEDULER URINE ORDERABLES Final R esult Performing Organization Address [facility] Co de Phone Number [facility] [address] [place] [address], [phone] * (ABNORMAL) PROTEIN ELECTROPHORESIS URINE RANDOM (10/20/2024 11:30 AM CDT) PROTEIN URINE TOTAL RANDOM 14.5(H) <12.0 MG/DL 10/21/2024 12:51 PM CDT [facility] INTERPRETATION THIS URINE PEP WAS INTERPRETED BY 10/24/2024 10:20 AM CDT [facility] Comment: DR PAVITHRA FLORENCE MD NO SIGNIFICANT RANDOM PROTEINURIA. THERE IS A TRACE OF ALBUMIN ON ELECTROPHORESIS. BENCE ABRAHAM PROTEIN IS NOT DETECTED. URINE SPECIMEN / Unknown 10/20/2024 11:30 AM CDT us Maris Aguilar MATERIAL SCHEDULER URINE ORDERABLES Final R esult [facility] [address] [place] [address], [phone] * (ABNORMAL) URINALYSIS (10/20/2024 11:30 AM CDT) Only the most recent of5 resultswithin the time period is included. COLOR (U) LIGHT YELLOW 10/20/2024 11:59 AM CDT [facility] TRANSPARENCY CLEAR 10/20/2024 11:59 AM CDT [facility] SPECIFIC GRAVITY (U) 1.012 1.002 - 1.035 10/20/2024 11:59 AM CDT [facility] U PH 7.0 5 - 8 10/20/2024 11:59 AM CDT [facility] PROTEIN RANDOM (U) NEGATIVE NEGATIVE 10/20/2024 11:59 AM CDT [facility] GLUCOSE (U) 100(A) NEGATIVE MG/DL 10/20/2024 11:59 AM CDT [facility] KETONES MG/DL (U) NEGATIVE NEGATIVE 10/20/2024 11:59 AM CDT [facility] BILIRUBIN (U) NEGATIVE NEGATIVE 10/20/2024 11:59 AM CDT [facility] BLOOD (U) 1+(A) NEGATIVE 10/20/2024 11:59 AM CDT [facility] NITRITES NEGATIVE NEGATIVE 10/20/2024 11:59 AM CDT [facility] UROBILINOGEN NORMAL 0 - 1 EU/DL 10/20/2024 11:59 AM CDT [facility] LEUKOCYTES (U) 1+(A) NEGATIVE 10/20/2024 11:59 AM CDT [facility] RBC/HPF 21(H) 0 - 3 /HPF 10/20/2024 11:59 AM CDT [facility] WBC/HPF 3 0 - 6 /HPF 10/20/2024 11:59 AM CDT [facility] BACTERIA (U) NONE /HPF 10/20/2024 11:59 AM CDT [facility] SQUAMOUS EPITHELIALS 12 10/20/2024 11:59 AM CDT [facility] BUDDING YEAST PRESENT 10/20/2024 11:59 AM CDT [facility] HYALINE CASTS 8 10/20/2024 11:59 AM CDT [facility] URINE SPECIMEN OBTAINED BY CLEAN CATCH PROCEDURE / Unknown 10/20/2024 11:30 AM CDT us Mari Galeas MD URINE ORDERABLES Final Result Performing Organization Address [facility] Co de Phone Number [facility] [address] [place] [address], [phone] * (ABNORMAL) POCT glucose (10/20/2024 11:20 AM CDT) Only the most recent of34 resultswithin the time period is included. GLUCOSE POC 185(H) 70 - 109 10/20/2024 11:24 AM CDT [facility] 10/20/2024 11:2 0 AM CDT us Mari Galeas MD POCT ORDERABLES - DEVICE Final Result Performing Organization Address City/[facility] Co de Phone Number [facility] [address] [place] [address], [phone] * (ABNORMAL) BASIC METABOLIC PANEL (10/20/2024 2:30 AM CDT) Only the most recent of8 resultswithin the time period is included. SODIUM S/P/B 139 136 - 145 MMOL/L 10/20/2024 3:22 AM CDT [facility] POTASSIUM S/P/B 4.0 3.5 - 5.1 MMOL/L 10/20/2024 3:22 AM CDT [facility] CHLORIDE S/P/B 105 97 - 115 MMOL/L 10/20/2024 3:22 AM CDT [facility] CO2 27.8 21.0 - 32.0 MMOL/L 10/20/2024 3:22 AM CDT [facility] GLUCOSE 242(H) 74 - 106 MG/DL 10/20/2024 3:22 AM CDT [facility] BUN 52(H) 7 - 18 MG/DL 10/20/2024 3:22 AM CDT [facility] CREATININE S/P/B 1.71(H) 0.55 - 1.02 MG/DL 10/20/2024 3:22 AM CDT [facility] CALCIUM S/P/B 8.6 8.5 - 10.1 MG/DL 10/20/2024 3:22 AM CDT [facility] ANION GAP 6.2 2.0 - 10.0 MMOL/L 10/20/2024 3:22 AM T [facility] OSMOLALITY (CALC) 310 MOSM/KG 025 3:22 AM T [facility] Comment:REFERENCE RANGE NOT ESTABLISHED GFR ESTIMATE 36(L) >90 ML/MIN/1. 73 M2 10/20/2024 3:22 AM CDT [facility] GFR NOTES GFR REFERENCE S: 10/20/2024 3:22 AM T [facility] Comment: THE ESTIMATED GFR IS [...] ml/min/1.73 m2 G5,KIDNEY FAILURE: <15 ml/min/1.73 m2 10/20/2024 2:30 AM CDT us Balaji Bartlett MD LABORATORY Final Result Performing Organization Address [facility] de Phone Number [facility] [address] [place] [address], [id number] * MAGNESIUM (10/20/2024 2:30 AM CDT) Only the most recent of9 resultswithin the time period is included. MAGNESIUM 2.0 1.6 - 2.6 MG/DL 10/20/2024 3:22 AM CDT [facility] 10/20/2024 2:30 AM CDT us Balaji Bartlett MD LABORATORY Final Result Performing Organization Address [facility] de Phone Number [facility] [address] [place] [address], [phone] * (ABNORMAL) RENAL FUNCTION PANEL (10/19/2024 11:44 PM CDT) Only the most recent of2 resultswithin the time period is included. SODIUM S/P/B 137 136 - 145 MMOL/L 10/20/2024 12:35 AM CDT [facility] POTASSIUM S/P/B 4.0 3.5 - 5.1 MMOL/L 10/20/2024 12:35 AM T [facility] CHLORIDE S/P/B 103 97 - 115 MMOL/L 10/20/2024 12:35 AM [facility] CO2 27.7 21.0 - 32.0 MMOL/L 10/20/2024 12:35 AM [facility] GLUCOSE 303(H) 74 - 106 MG/DL 10/20/2024 12:35 AM [facility] BUN 52(H) 7 - 18 MG/DL 10/20/2024 12:35 AM [facility] CREATININE S/P/B 1.78(H) 0.55 - 1.02 MG/DL 10/20/2024 12:35 AM [facility] CALCIUM S/P/B 8.8 8.5 - 10.1 MG/DL 10/20/2024 12:35 AM [facility] ALBUMIN S/P/B 2.5(L) 3.4 - 5.0 G/DL 10/20/2024 12:35 AM [facility] PHOSPHORUS 2.8 2.5 - 4.9 MG/DL 10/20/2024 12:35 AM [facility] ANION GAP 6.3 2.0 - 10.0 MMOL/L 10/20/2024 12:35 AM [facility] OSMOLALITY (CALC) 309 MOSM/KG 025 12:35 AM [facility] Comment:REFERENCE RANGE NOT ESTABLISHED GFR ESTIMATE 35(L) >90 ML/MIN/1. 73 M2 10/20/2024 12:35 AM [facility] GFR NOTES GFR REFERENCE S: 10/20/2024 12:35 AM [facility] Comment: THE ESTIMATED GFR IS [...] ml/min/1.73 m2 G5,KIDNEY FAILURE: <15 ml/min/1.73 m2 10/19/2024 11:4 4 PM CDT Maris Aguilar MATERIAL SCHEDULER LABORATORY Final Re sult Performing Organization Address [facility] Co de Phone Number [facility] [address] [place] [address], [phone] * (ABNORMAL) ALBUMIN URINE RANDOM W/CREATININE (10/19/2024 4:19 PM CDT) Only the most recent of2 resultswithin the time period is included. ALBUMIN (U) 1.3 MG/DL 10/19/2024 5:08 PM CDT [facility] CREATININE (U) 40.4 MG/DL 10/19/2024 5:08 PM CDT [facility] Comment:REFERENCE RANGE NOT ESTABLISHED MICROALBUMIN (U) 31.4(H) <25.0 MG/G 10/20/19 25 5:08 PM CDT [facility] URINE SPECIMEN / Unknown 10/19/2024 4:19 PM CDT Maris Aguilar MATERIAL SCHEDULER URINE ORDERABLES Final R esult Performing Organization Address [facility]/ZIP Co de Phone Number [facility] [address] [place] [address], [phone] * USV JUSTIN DUPLEX LOW EXT MANPREET (10/19/2024 3:17 PM CDT) Anatomical Region Laterality Modality Extremity Ultrasound 10/19/2024 2:22 PM CDT Narrative 10/20/2024 8:33 AM CDT Vascular Report Pat.Name: CEM MARSHALL Pat.ID: [id number] .Date: 10/19/2024 Refer.MD: MARI GALEAS Exam Time: 2:22:00 PM Study Type:PVI VENOUS DUPLEX SCAN-LEGS BILAT Height: 65 in Age: 5 1975,48Y Sex: F Sonogrphr: Rene Christiansen Sheldon Pat. Stat.:Inpatient Room: 504 ICD - 9: M79.89 Swelling of limb CPT - 4: 79159 Venous Duplex LE/UE Reason for Study:Lower limb swelling Race: W ++++++++++++++++++++++++++++++++++++ FINDINGS: ++++++++++++++++++++++++++++++++++++ Bilat: No evidence of acute or chronic thrombosis noted in the deep or superficial veins in either lower extremity. Comments: Technically difficult study due to inability to position. <Electronic Signature> 10/20/2024 08:33 AM Rose Conn M.D. Procedure Note Rose Conn MD - 10/20/2024 Vascular Report Pat.Name: CEM MARSHALL Patti.ID: [id number] .Date: 10/19/2024 Refer.MD: MARI GALEAS Exam Time: 2:22:00 PM Study Type:PVI VENOUS DUPLEX SCAN-LEGS BILAT Height: 65 in Age: 5 1975,48Y Sex: F Sonogrphr: Rene Christiansen Sheldon Pat. Stat.:Inpatient Room: 504 ICD - 9: M79.89 Swelling of limb CPT - 4: 35526 Venous Duplex LE/UE Reason for Study:Lower limb swelling Race: W ++++++++++++++++++++++++++++++++++++ FINDINGS: ++++++++++++++++++++++++++++++++++++ Bilat: No evidence of acute or chronic thrombosis noted in the deep or superficial veins in either lower extremity. Comments: Technically difficult study due to inability to position. <Electronic Signature> 10/20/2024 08:33 AM Rose Conn M.D. Mari Galeas MD [facility] Final Result * (ABNORMAL) CBC, AUTO, NO DIFF (10/18/2024 3:09 AM CDT) Only the most recent of3 resultswithin the time period is included. WBC 11.15(H) 4.00 - 10.80 x10'3/uL 10/18/2024 3:17 AM CDT [facility] RBC 3.07(L) 4.10 - 5.40 x10'6/uL 10/18/2024 3:17 AM CDT [facility] HGB 8.9(L) 12.0 - 16.0 G/DL 10/18/2024 3:17 AM CDT [facility] HCT 28.8(L) 36.0 - 47.0 % 10/18/2024 3:17 AM CDT [facility] MCV 93.8 78.0 - 100.0 FL 10/18/2024 3:17 AM CDT [facility] MCH 29.0 27.0 - 31.0 PG 10/18/2024 3:17 AM CDT [facility] MCHC 30.9(L) 33.0 - 36.0 G/DL 10/18/2024 3:17 AM CDT [facility] RDW 19.1(H) 11.5 - 14.5 % 10/18/2024 3:17 AM CDT [facility] PLT 284 150 - 350 x10'3/uL 10/18/2024 3:17 AM CDT [facility] MPV 10.9(H) 7.4 - 10.4 FL 10/18/2024 3:17 AM CDT [facility] 10/18/2024 3:09 AM CDT Segundo Storm MD LABORATORY Final Result Performing Organization Address City/[facility] Co de Phone Number [facility] [address] [place] [address], [phone] * PHOSPHORUS, INORGANIC PHOSPHATE (10/18/2024 3:09 AM CDT) Only the most recent of4 resultswithin the time period is included. PHOSPHORUS 4.5 2.5 - 4.9 MG/DL 10/18/2024 3:50 AM CDT [facility] 10/18/2024 3:09 AM CDT Segundo Storm MD LABORATORY Final Result Performing Organization Address [facility] de Phone Number [facility] [address] [place] [address], [phone] * CULTURE, BACTERIA BLOOD (10/17/2024 2:27 PM CDT) Only the most recent of5 resultswithin the time period is included. SPEC DESCRIPTION BLOOD 10/18/19 25 2:34 PM CDT [facility] SPECIAL REQUESTS BLOOD-AERO BIC BOTTLE ONLY 10/17/2024 2:34 PM CDT [facility] CULTURE RESULT NO GROWTH 5 DAYS 10/22/2024 2:36 PM CDT [facility] BLOOD SPECIMEN OBTAINED FOR BLOOD CULTURE / Unknown 10/17/2024 2:27 PM CDT 10/17/2024 2:34 PM CDT Balaji Bartlett MD MICROBIOLOGY - GENERAL ORDER JAROD Final Result Performing Organization Address City/[facility] Co de Phone Number [facility] [address] [place] [address], [phone] * (ABNORMAL) HEPARIN, ANTI XA, UFH (10/17/2024 1:45 AM CDT) Only the most recent of6 resultswithin the time period is included. HEPARIN ANTI XA UFH 0.15(L) 0.30 - 0.70 IU/ML 10/17/2024 2:09 AM CDT [facility] Comment: UFH Therapeutic Anti Xa Ranges: Medical Therapeutic Range: 0.30 - 0.70 IU/mL Cardiac Therapeutic Range: 0.30 - 0.50 IU/mL Neuro Therapeutic Range: 0.20 - 0.40 IU/mL 10/17/2024 1:45 AM CDT us Balaji Bartlett MD LABORATORY Final Result Performing Organization Address [facility] Co de Phone Number [facility] [address] [place] [address], [phone] * (ABNORMAL) PROTIME/INR, VENOUS (10/17/2024 1:45 AM CDT) Only the most recent of5 resultswithin the time period is included. PROTIME 12.6(H) 9.4 - 12.5 SEC 10/17/2024 3:09 AM CDT [facility] INR 1.1 0.8 - 1.1 10/17/2024 3:09 AM CDT [facility] 10/17/2024 1:45 AM CDT us Balaji Bartlett MD LABORATORY Final Result Performing Organization Address [facility] Co de Phone Number [facility] [address] [place] [address], [phone] * (ABNORMAL) HEMOGLOBIN AND HEMATOCRIT (10/16/2024 8:00 PM CDT) Only the most recent of2 resultswithin the time period is included. HGB 9.4(L) 12.0 - 16.0 G/DL 10/16/2024 8:03 PM CDT [facility] HCT 31.1(L) 36.0 - 47.0 % 10/16/2024 8:03 PM CDT [facility] 10/16/2024 8:00 PM CDT Balaji Bartlett MD LABORATORY Final Result [facility] [address] [place] [address], [phone] * (ABNORMAL) POCT ACUTE VENOUS PANEL (10/16/2024 5:14 PM CDT) Only the most recent of2 resultswithin the time period is included. SODIUM WHOLE BLOOD 142 138 - 146 mmol/L 10/16/2024 5:16 PM CDT [facility] POTASSIUM WHOLE BLOOD 5.0(H) 3.5 - 4.9 mmol/L 10/16/2024 5:16 PM CDT [facility] CA IONIZED WH BLOOD 1.23 1.12 - 1.32 mmol/L 10/16/2024 5:16 PM CDT [facility] POC PH VENOUS 7.398 7.31 - 7.41 10/16/2024 5:16 PM CDT [facility] POC PCO2 VENOUS 45.1 41.0 - 51.0 MMHG 10/16/2024 5:16 PM CDT [facility] POC PO2 VENOUS 31 25 - 40 MMHG 10/16/2024 5:16 PM CDT [facility] POC HCO3 VENOUS 27.9 23 - 28 MMOL/L 10/16/2024 5:16 PM CDT [facility] POC TCO2 VENOUS 29 24 - 29 MMOL/L 10/16/2024 5:16 PM CDT [facility] POC BASE EXCESS VENOUS 3 0 - 3 MMOL/L 10/16/2024 5:16 PM CDT [facility] POC HEMATOCRIT 42 38 - 51 % 10/16/2024 5:16 PM CDT [facility] TIME TEST WAS PERFORMED: 1714 10/16/2024 5:16 PM CDT [facility] 10/16/2024 5:14 PM CDT us Balaji Bartlett MD POCT ORDERABLES - DEVICE Fin al Result [facility] [address] [place] [address], [phone] * (ABNORMAL) POCT ACUTE ARTERIAL PANEL (10/16/2024 12:12 PM CDT) SODIUM WHOLE BLOOD 138 138 - 146 mmol/L 10/16/2024 12:18 PM CDT [facility] POTASSIUM WHOLE BLOOD 5.1(H) 3.5 - 4.9 mmol/L 10/16/2024 12:18 PM CDT [facility] CA IONIZED WH BLOOD 1.25 1.12 - 1.32 mmol/L 10/16/2024 12:18 PM CDT [facility] POC PH ARTERIAL 7.408 7.35 - 7.45 10/16/2024 12:18 PM CDT [facility] POC PCO2 ARTERIAL 38.5 35.0 - 45.0 MMHG 10/16/2024 12:18 PM CDT [facility] POC PO2 ARTERIAL 72(L) 80 - 105 [facility] 10/16/2024 12:18 PM CDT [facility] POC HCO3 ARTERIAL 24.3 22 - 26 MMOL/L 10/16/2024 12:18 PM CDT [facility] POC TCO2 ARTERIAL 25 23 - 27 MMOL/L 10/16/2024 12:18 PM CDT [facility] POC BASE EXCESS ARTERIAL 0 0 - 3 MMOL/L 10/16/2024 12:18 PM CDT [facility] POC HEMATOCRIT 28(L) 38 - 51 % 10/16/2024 12:18 PM CDT [facility] TIME TEST WAS PERFORMED: 1212 10/16/2024 12:18 PM CDT [facility] 10/16/2024 12:1 2 PM CDT us Balaji Bartlett MD POCT ORDERABLES - DEVICE Fin al Result [facility] [address] [place] [address], [id number] * ECG 12 lead (10/16/2024 9:01 AM CDT) Only the most recent of8 resultswithin the time period is included. 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 : 1975 Requested By: BALAJI WOODWARD Order Number: [id number] Reading MD: Beto Rosado Measurements Intervals [place] Rate: 123 P: 49 WY: 142 QRS: 8 QRSD: 85 T: 142 QT: 298 QTc: 427 Interpretive Statements SINUS TACHYCARDIA LOW QRS VOLTAGE IN PRECORDIAL LEADS [QRS DEFLECTION < 1.0 mV IN CHEST LEADS] ANTEROLATERAL MYOCARDIAL INFARCTION , OF INDETERMINATE AGE [40+ ms Q WAVE IN I/aVL/V3-V6] sway Procedure Note eBto Rosado MD - 10/16/2024 [facility] [address] [place] [address] Test Date: 2024-10-16 Pat Name: CEM MARSHALL Department: 1 Room: [place] [address] Gender: Female 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 Infant 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: Daquan : 1975 Requested By: BALAJI WOODWARD Order Number: [id number] Reading MD: Beto Rosado Measurements Intervals [place] Rate: 123 P: 49 WY: 142 QRS: 8 QRSD: 85 T: 142 QT: 298 QTc: 427 Interpretive Statements SINUS TACHYCARDIA LOW QRS VOLTAGE IN PRECORDIAL LEADS [QRS DEFLECTION < 1.0 mV IN CHESTLEADS] ANTEROLATERAL MYOCARDIAL INFARCTION , OF INDETERMINATE AGE [40+ ms Q WAVEIN I/aVL/V3-V6] sway Balaji Bartlett MD ECG ORDERABLES Final Result Performing Organization Address City/[facility] Co de Phone Number [facility] * STREP PNEUMO AG URINE (10/16/2024 7:00 AM CDT) S. PNEUMONIAE URINARY AG NEGATIVE NEGATIVE 10/17/2024 3:10 PM CDT [facility] Comment: PRESUMPTIVE NEGATIVE FOR PNEUMOCOCCAL PNEUMONIA, SUGGESTING NO CURRENT OR RECENT PNEUMOCOCCAL INFECTION. INFECTION DUE TO STREPTOCOCCUS PNEUMONIA CANNOT BE RULED OUT SINCE THE ANTIGEN PRESENT IN THE SAMPLE MAY BELOW THE DETECTION LIMIT OF THE TEST. SPECIMEN TYPE URINE CLEAN CATCH 10/15/2024 2:30 PM HI LO DRIVER [facility] URINE SPECIMEN OBTAINED BY CLEAN CATCH PROCEDURE / Unknown 10/16/2024 7:00 AM CDT Balaji Bartlett MD MICROBIOLOGY - GENERAL ORDER JAROD Final Result Performing Organization Address City/[facility] Co de Phone Number [facility] [address] [place] [address], [id number] * UREA NITROGEN URINE RANDOM (10/16/2024 7:00 AM CDT) UREA NITROGEN (U) 106 MG/DL 10/16/2024 8:30 AM CDT [facility] LAB Comment:REFERENCE RANGE NOT ESTABLISHED URINE SPECIMEN / Unknown 10/16/2024 7:00 AM CDT us Balaji Bartlett MD URINE ORDERABLES Final Resul t Performing Organization Address [facility] de Phone Number [facility] [address] [place] [address], [place] [phone] * LEGIONELLA AG URINE (10/16/2024 7:00 AM CDT) LEGIONELLA ANTIGEN (URINE) NEGATIVE NEGATIVE 10/17/2024 3:10 PM CDT [facility] Comment: PRESUMPTIVE NEGATIVE FOR L. PNEUMOPHILA SEROGROUP 1 ANTIGEN IN URINE, SUGGESTING NO RECENT OR CURRENT INFECTION. INFECTION DUE TO LEGIONELLA CANNOT BE RULED OUT SINCE OTHER SEROGROUPS AND SPECIES MAY CAUSE DISEASE, ANTIGEN MAY NOT BE PRESENT IN URINE IN EARLY INFECTION, AND THE LEVEL OF ANTIIGNE PRESENT IN THE URINE MAY BE BELOW THE DETECTION LIMIT OF THE TEST. URINE SPECIMEN / Unknown 10/16/2024 7:00 AM CDT us Balaji Bartlett MD MICROBIOLOGY - GENERAL ORDER JAROD Final Result Performing Organization Address [facility] de Phone Number [facility] [address] [place] [address], [place] [phone] * TRANSFUSE RED BLOOD CELLS (10/16/2024 5:26 AM CDT) Only the most recent of2 resultswithin the time period is included. us Balaji Bartlett MD NURSING TREATMENT ORDERABLES - BLOOD ADMIN Final Result * XR CHEST PORTABLE (10/16/2024 4:40 AM CDT) Only the most recent of5 resultswithin the time period is included. Anatomical Region Laterality Modality Chest Radiographic Marya ging 10/16/2024 4:43 AM CDT Impressions 10/16/2024 4:44 AM CDT IMPRESSION: 1. NO SIGNIFICANT INTERVAL CHANGE. Signed: Joseph Doyle MD Referred By: LORENZA INMAN Interpreted By: Joseph Doyle MD, 10/16/2024 4:43 AM Narrative 10/16/2024 4:44 AM CDT [address] [address] PATIENT NAME: CEM MARSHALL EXAM: Chest one view DATE OF EXAM: 10/16/2024 COMPARISON EXAM: 10/15/2024 INDICATION: Short of breath, leg edema TECHNIQUE: AP chest FINDINGS: There is persistent cardiomegaly. Persistent pulmonary vascular congestion and edema suggesting CHF similar to previous study. Superimposed pneumonia in the lung bases could not BE excluded. Upper lungs are free of consolidation. Probable small left pleural effusion. Procedure Note Joseph Doyle MD - 10/16/[address] [address] PATIENT NAME: CEM MARSHALL EXAM: Chest one view DATE OF EXAM: 10/16/2024 COMPARISON EXAM: 10/15/2024 INDICATION: Short of breath, leg edema TECHNIQUE: AP chest FINDINGS: There is persistent cardiomegaly. Persistent pulmonary vascularcongestion and edema suggesting CHF similar to previous study.Superimposed pneumonia in the lung bases could not BE excluded. Upperlungs are free of consolidation. Probable small left pleural effusion. IMPRESSION: 1. NO SIGNIFICANT INTERVAL CHANGE. Signed: Joseph Doyle MD Referred By: LORENZA INMAN Interpreted By: Joseph Doyle MD, 10/16/2024 4:43 AM Balaji Bartlett MD GENERAL IMAGING Final Result * (ABNORMAL) HEMOGLOBIN, GLYCOSYLATED (10/16/2024 4:00 AM CDT) HGB A1C 7.1(H) <5.7 % 10/16/2024 5:33 AM CDT [facility] ESTIMATED AVG GLUCOSE 157(H) 74 - 114 MG/DL 10/16/2024 5:33 AM CDT [facility] 10/16/2024 4:00 AM CDT Segundo Storm MD LABORATORY Final Result Performing Organization Address [facility] Co de Phone Number [facility] [address] [place] [address], [phone] * LACTIC ACID - SINGLE (10/16/2024 4:00 AM CDT) Only the most recent of3 resultswithin the time period is included. LACTIC ACID VENOUS 1.9 0.4 - 2.0 MMOL/L 10/16/2024 4:54 AM CDT [facility] 10/16/2024 4:00 AM CDT Balaji Bartlett MD LABORATORY Final Result Performing Organization Address [facility] Co de Phone Number [facility] [address] [place] [address], [place] [phone] * BLOOD TYPING, ABO AND RH (10/15/2024 8:00 PM HI LO DRIVER) ABO/RH A POSITIVE 10/15/2024 8:43 PM HI LO DRIVER [facility] 10/15/2024 8:00 PM HI LO DRIVER Baalji Bartlett MD BLOOD BANK TEST ORDERABLES F inal Result Performing Organization Address City/[facility] Co de Phone Number [facility] [address] [place] [address], [place] [phone] * (ABNORMAL) TROPONIN, QUANT (10/15/2024 8:00 PM HI LO DRIVER) Only the most recent of6 resultswithin the time period is included. TROPONIN I HIGH SENSITIVITY 240(H) 0 - 53 ng/L 10/15/2024 8:51 PM HI LO DRIVER [facility] 10/15/2024 8:00 PM HI LO DRIVER Balaji Batrlett MD LABORATORY Final Result [facility] [address] [place] [address], [place] [phone] * CT ABD+PEL WO CON (10/15/2024 6:00 PM HI LO DRIVER) Only the most recent of2 resultswithin the time period is included. Anatomical Region Laterality Modality Abdomen Computed Tomogra phy 10/15/2024 6:13 PM HI LO DRIVER Impressions 10/15/2024 6:26 PM HI LO DRIVER IMPRESSION: 1. New bibasilar multifocal pneumonia. 2. Pulmonary edema, small bilateral pleural effusions, cardiomegaly, and multivessel coronary artery disease. 3. Cholelithiasis without specific signs of acute cholecystitis 4. Diffuse anasarca. 5. No discrete evidence of retroperitoneal hemorrhage on this noncontrast examination. Dictated By: Nilo Ontiveros MD on 10/15/2024 6:13 PM The attending radiologist has reviewed the image(s) and agrees with the content of this report. Ordered By: BALAJI WOODWARD V Interpreted By: Nilo Ontiveros MD, 10/15/2024 6:13 PM Narrative 10/15/2024 6:26 PM HI LO DRIVER [facility] [address] [place], [place] [address] EXAMINATION: CT ABD+PEL WO CON DATE: 10/15/2024 5:59 PM HISTORY: Rule out retroperitoneal bleed. History of coronary artery disease, heart failure, type 2 diabetes, atrial fibrillation and pulmonary embolism. COMPARISON: 09/11/2024 CT abdomen/pelvis. TECHNIQUE: Computed tomography of the abdomen and pelvis was performed without the utilization of intravenous contrast according to routine protocol. A dose lowering technique was used for this procedure, which may include, but is not limited to, dose reduction technique, automated exposure control, and/or the use of iterative reconstruction, in accordance with ALARA (As Low As Reasonably Achievable)/Image Gently principle. FINDINGS: Chest: Bibasilar consolidative and nodular opacities consistent with multifocal pneumonia. There is associated bibasilar interlobular septal thickening which would also suggest some degree of concomitant pulmonary edema. There are small bilateral pleural effusions. Cardiomegaly. Multivessel coronary artery disease. Decreased attenuation of the blood pool in relationship to the myocardium suggestive of anemia. Hepatobiliary system: The liver is normal in size and contour. No biliary ductal dilatation is identified. Cholelithiasis without specific signs of acute cholecystitis. There is no peripancreatic fat-stranding. Genitourinary tract: The adrenal glands are normal. Kidneys are normal in size. Nonspecific bilateral perinephric stranding. Bilateral nonobstructing punctate nephrolithiasis versus vascular calcifications. No hydronephrosis or obstructing urolithiasis. Garcia catheter is noted within the urinary bladder. Gastrointestinal tract: No pneumoperitoneum or ascites is identified. The stomach is normal in size. The bowel is normal in caliber. Mild colonic stool burden The appendix is normal. Vasculature: The abdominal aorta is normal in caliber. Lymphatics: The spleen has a normal appearance. No retroperitoneal, mesenteric, iliac, or inguinal lymphadenopathy is identified. There is no CT evidence of intraperitoneal or retroperitoneal hemorrhage. Musculoskeletal: No fracture or destructive osseous lesion is identified. Left hip fixation. Mild left posterior lower rib fractures. Diffuse anasarca. Procedure Note Christopher Flaherty MD - 10/15/[address] [address] EXAMINATION: CT ABD+PEL WO CON DATE: 10/15/2024 5:59 PM HISTORY: Rule out retroperitoneal bleed. History of coronary arterydisease, heart failure, type 2 diabetes, atrial fibrillation and pulmonaryembolism. COMPARISON: 09/11/2024 CT abdomen/pelvis. TECHNIQUE: Computed tomography of the abdomen and pelvis was performedwithout the utilization of intravenous contrast according to routineprotocol. A dose lowering technique was used for this procedure, whichmay include, but is not limited to, dose reduction technique, automatedexposure control, and/or the use of iterative reconstruction, inaccordance with ALARA (As Low As Reasonably Achievable)/Image Gentlyprinciple. FINDINGS: Chest: Bibasilar consolidative and nodular opacities consistent withmultifocal pneumonia. There is associated bibasilar interlobular septalthickening which would also suggest some degree of concomitant pulmonaryedema. There are small bilateral pleural effusions. Cardiomegaly.Multivessel coronary artery disease. Decreased attenuation of the bloodpool in relationship to the myocardium suggestive of anemia. Hepatobiliary system: The liver is normal in size and contour. Nobiliary ductal dilatation is identified. Cholelithiasis without specificsigns of acute cholecystitis. There is no peripancreatic fat-stranding. Genitourinary tract: The adrenal glands are normal. Kidneys are normalin size. Nonspecific bilateral perinephric stranding. Bilateralnonobstructing punctate nephrolithiasis versus vascular calcifications. Nohydronephrosis or obstructing urolithiasis. Garcia catheter is noted withinthe urinary bladder. Gastrointestinal tract: No pneumoperitoneum or ascites is identified. Thestomach is normal in size. The bowel is normal in caliber. Mild colonicstool burden The appendix is normal. Vasculature: The abdominal aorta is normal in caliber. Lymphatics: The spleen has a normal appearance. No retroperitoneal,mesenteric, iliac, or inguinal lymphadenopathy is identified. There is no CT evidence of intraperitoneal or retroperitonealhemorrhage. Musculoskeletal: No fracture or destructive osseous lesion is identified.Left hip fixation. Mild left posterior lower rib fractures. Diffuseanasarca. IMPRESSION: 1. New bibasilar multifocal pneumonia. 2. Pulmonary edema, small bilateral pleural effusions, cardiomegaly, andmultivessel coronary artery disease. 3. Cholelithiasis without specific signs of acute cholecystitis 4. Diffuse anasarca. 5. No discrete evidence of retroperitoneal hemorrhage on this noncontrastexamination. Dictated By: Nilo Ontiveros MD on 10/15/2024 6:13 PM The attending radiologist has reviewed the image(s) and agrees with thecontent of this report. Ordered By: BALAJI WOODWARD V Interpreted By: Nilo Ontiveros MD, 10/15/2024 6:13 PM Balaji Bartlett MD CT Final Result * (ABNORMAL) PRO-BRAIN NATRIURETIC PEPTIDE (10/15/2024 3:43 PM HI LO DRIVER) Only the most recent of3 resultswithin the time period is included. PRO-B TYPE NATRIURETIC PEPTIDE 11,053(H) <125 PG/ML 10/15/2024 4:32 PM HI LO DRIVER [facility] Comment: AGE INDEPENDENT: <300 PG/ML HAS A 99% NEGATIVE PREDICTIVE VALUE FOR EXCLUDING ACUTE CHF <50 YEARS: >450 PG/ML IS CONSISTENT WITH ACUTE CHF 50-75 YEARS: >900 PG/ML IS CONSISTENT WITH ACUTE CHF >75 YEARS: >1800 PG/ML IS CONSISTENT WITH ACUTE CHF IN PATIENTS WITH RENAL INSUFFICIENCY (GFR <60), >1200 PG/ML YIELDS A DIAGNOSTIC SENSITIVITY AND SPECIFICITY OF 89% AND 72% FOR ACUTE CHF. 10/15/2024 3:43 PM HI LO DRIVER Segundo Storm MD LABORATORY Final Result [facility] [address] [place] [address], [phone] * TYPE & SCREEN (10/15/2024 3:43 PM HI LO DRIVER) Only the most recent of2 resultswithin the time period is included. UNITS ORDERED 1 10/16/2024 12:27 AM HI LO DRIVER [facility] ABO/RH A POSITIVE 10/15/2024 6:59 PM HI LO DRIVER [facility] ANTIBODY SCREEN NEGATIVE 6:59 PM HI LO DRIVER [facility] SAMPLE EXPIRATION 10/18/2024,2359 10/15/2024 3:57 PM [facility] BLOOD UNIT NUMBER [id number] 10/16/2024 12:27 AM [facility] PRODUCT: PC LEUKOPOOR 10/16/2024 12:27 AM [facility] UNIT DIVISION 00 10/16/2024 12:27 AM [facility] BLOOD UNIT STATUS TRANSFUSED,FINAL 10/17/2024 7:08 AM T [facility] ISSUE DATE/TIME [id number] 7:08 AM [facility] PRODUCT CODE [id number] 10/17/2024 7:08 AM [facility] ABO/RH Unit A POS 10/17/2024 7:08 AM [facility] ABO/RH UNIT ISBT CODE 6200 10/17/2024 7:08 AM [facility] BLOOD UNIT EXPIRATION DATE [id number] 10/17/2024 7:08 AM [facility] TRANSFUSION STATUS OK TO TRANSFUSE 10/16/2024 12:27 AM [facility] CROSSMATCH COMPATIBLE-EXM 10/16/2024 12:27 AM [facility] 10/15/2024 3:43 PM HI LO DRIVER us Segundo Storm MD BLOOD BANK TEST ORDERABLES Fin al Result [facility] [address] [place] [address], [phone] * (ABNORMAL) HEPATIC FUNCTION PANEL (10/15/2024 3:43 PM HI LO DRIVER) BILIRUBIN TOTAL S/P/B 0.3 0.2 - 1.0 MG/DL 10/15/2024 4:32 PM HI LO DRIVER [facility] BILIRUBIN DIRECT S/P/B <0.1 0.0 - 0.2 MG/DL 10/15/2024 4:32 PM HI LO DRIVER [facility] ALKALINE PHOSPHATASE S/P/B 117(H) 39 - 100 U/L 10/15/2024 4:32 PM HI LO DRIVER [facility] AST 18 15 - 37 U/L 10/15/2024 4:32 PM HI LO DRIVER [facility] ALT 17 13 - 56 U/L 10/15/2024 4:32 PM HI LO DRIVER [facility] TOTAL PROTEIN S/P/B 6.8 6.4 - 8.2 G/DL 10/15/2024 4:32 PM HI LO DRIVER [facility] ALBUMIN S/P/B 1.5(L) 3.4 - 5.0 G/DL 10/15/2024 4:32 PM HI LO DRIVER [facility] 10/15/2024 3:43 PM HI LO DRIVER Segundo Storm MD LABORATORY Final Result Performing Organization Address [facility] Co de Phone Number [facility] [address] [place] [address], [phone] * (ABNORMAL) THYROID STIM HORMONE, TSH (10/15/2024 3:43 PM HI LO DRIVER) TSH 3.950(H) 0.358 - 3.740 uIU/ML 10/15/2024 4:32 PM HI LO DRIVER [facility] Comment: ASSAY PERFORMED BY CHEMILUMINESCENCE METHODOLOGY USING [employer]IST[employer] REAGENT. PATIENT RESULTS DETERMINED BY ASSAYS USING DIFFERENT MANUFACTURERS FOR METHODS MAY NOT BE COMPARABLE. 10/15/2024 3:43 PM HI LO DRIVER Segundo Storm MD LABORATORY Final Result Performing Organization Address [facility] Co de Phone Number [facility] [address] [place] [address], [place] [phone] * (ABNORMAL) CALCIUM, IONIZED (10/15/2024 3:43 PM HI LO DRIVER) CALCIUM IONIZED 1.12(L) 1.15 - 1.33 MMOL/L 10/15/2024 3:55 PM HI LO DRIVER [facility] 10/15/2024 3:43 PM HI LO DRIVER Segundo Storm MD LABORATORY Final Result [facility] [address] [place] [address], [place] [phone] * US RETROPERITONEAL LTD (10/15/2024 3:21 PM HI LO DRIVER) Anatomical Region Laterality Modality Renal Ultrasound 10/15/2024 3:41 PM HI LO DRIVER Impressions 10/15/2024 3:49 PM HI LO DRIVER Impression: 1. Normal appearance of the right kidney. 2. Normal appearance of the left kidney, although the left kidney is not as optimally visualized due to large body habitus. 3. Garcia catheter. 4. Trace bilateral pleural effusions. Dictated By: Nilo Ontiveros MD on 10/15/2024 3:41 PM The attending radiologist has reviewed the image(s) and agrees with the content of this report. Ordered By: SEGUNDO STORM Interpreted By: Nilo Ontiveros MD, 10/15/2024 3:41 PM Narrative 10/15/2024 3:49 PM HI LO DRIVER [facility] [address] [place], [place] [address] Examination: US RETROPERITONEAL LTD Exam Date/Time: 10/15/2024 1:58 PM Clinical Indication: UTI; rule out pyelonephritis Comparison: None available. Technique: An ultrasound examination of bilateral kidneys and urinary bladder was performed to assess grayscale and color flow characteristics. Findings: Right kidney: Measures 11.6 cm (L) X 5.8 cm (W) X 4.9 cm (H). Normal echogenicity. Normal cortical perfusion. No masses, cysts, stones or hydronephrosis. Left kidney: Measures 11.0 cm (L) X 5.8 cm (W) X 6.2 cm (H). Normal echogenicity. Normal cortical perfusion. No definite masses or hydronephrosis, although the left kidney is not as optimally visualized due to large body habitus. Urinary bladder: Decompressed due to Garcia catheter. Ureteral jets are not seen on this exam. . Incidentally noted trace bilateral pleural effusions. Procedure Note Christopher Flaherty MD - 10/15/[address] [address] Examination: US RETROPERITONEAL LTD Exam Date/Time: 10/15/2024 1:58 PM Clinical Indication: UTI; rule out pyelonephritis Comparison: None available. Technique: An ultrasound examination of bilateral kidneys and urinarybladder was performed to assess grayscale and color flow characteristics. Findings: Right kidney: Measures 11.6 cm (L) X 5.8 cm (W) X 4.9 cm (H). Normalechogenicity. Normal cortical perfusion. No masses, cysts, stones orhydronephrosis. Left kidney: Measures 11.0 cm (L) X 5.8 cm (W) X 6.2 cm (H). Normalechogenicity. Normal cortical perfusion. No definite masses orhydronephrosis, although the left kidney is not as optimally visualizeddue to large body habitus. Urinary bladder: Decompressed due to Garcia catheter. Ureteral jets arenot seen on this exam. . Incidentally noted trace bilateral pleural effusions. Impression: 1. Normal appearance of the right kidney. 2. Normal appearance of the left kidney, although the left kidney is notas optimally visualized due to large body habitus. 3. Garcia catheter. 4. Trace bilateral pleural effusions. Dictated By: Nilo Ontiveros MD on 10/15/2024 3:41 PM The attending radiologist has reviewed the image(s) and agrees with thecontent of this report. Ordered By: SEGUNDO STORM Interpreted By: Nilo Ontiveros MD, 10/15/2024 3:41 PM us Segundo Storm MD ULTRASOUND Final Result * USE ECHOCARDIOGRAM W CON (10/15/2024 2:34 PM HI LO DRIVER) Anatomical Region Laterality Modality NA Echocardiogram 10/15/2024 1:54 PM HI LO DRIVER Narrative 10/16/2024 10:33 AM CDT Echocardiography Report Pat.Name: CEM MARSHALL Pat.ID: [id number] .Date: 10/15/2024 Refer.MD: [id number] LISSY Morley EWDPROV EWDPROV Exam Time: 1:54:00 PM Study Type:ECHO W/CONTRAST COMPLETE Height: 65 in Weight: 260 lb BSA: 2.21 m2 Age: 4 1975,48Y Sex: F BP: 93/65 HR: 120 bpm Sonogrphr: Adam Gregory RDCS Pat. Stat.:Inpatient Room: [place] [address] CPT - 4: C8929 Reason for Study:Hypoxia Procedures: 2D, M-mode, Doppler, Color Flow, Definity was used to enhance endocardial definition. Portable, The study quality is technically difficult. ++++++++++++++++++++++++++++++++++++ SUMMARY: ++++++++++++++++++++++++++++++++++++ The left ventricular size is normal. Estimated left ventricular ejection fraction is 40-50%. Mild concentric left ventricular hypertrophy. Mild global hypokinesis is noted. The right ventricular size is normal. Right ventricular systolic function is normal. Inferior vena cava shows <50% collapse with respiration consistent with elevated right atrial pressure. Trace aortic regurgitation. Mild aortic valve sclerosis. Trace to mild mitral regurgitation. Myxomatous degeneration of mitral valve. A trace of tricuspid regurgitation. ++++++++++++++++++++++++++++++++++++ FINDINGS: ++++++++++++++++++++++++++++++++++++ LV: The left ventricular size is normal. The left ventricular systolic function is mildly depressed. Estimated left ventricular ejection fraction is 40-50%. Mild concentric left ventricular hypertrophy. The septal E/e' is indeterminate at 8-15. The lateral E/e' is elevated at >11. The average E/e' is indeterminate at 8-15 and EF < 50. Left ventricular diastolic function is abnormal. Difficult to assess overall left ventricular function; however it appears preserved. WM: Mild global hypokinesis is noted. LVOT: The left ventricular outflow tract size is normal. RV: The right ventricular size is normal. Right ventricular systolic function is normal. TAPSE = 22mm (<16 mm indicates systolic RV dysfunction). LA: The left atrial size is normal. The left atrial volume is normal ( less than 34 ml/M2). RA: Right atrial size is normal. IAS: Atrial septum appears intact. ADA: No evidence of pericardial effusion. AO: The aortic root measures 3.0 cm. The proximal ascending aorta measures 2.9cm. PA: Unable to reliably quantitate pulmonary systolic pressure. SVn: Inferior vena cava is mildly enlarged. Inferior vena cava shows <50% collapse with respiration consistent with elevated right atrial pressure. Other: Definity given through IV, however, Definity was not visualized inside the heart. AV: The aortic valve is trileaflet. No evidence of aortic valve stenosis. Trace aortic regurgitation. Mild aortic valve sclerosis. MV: Trace to mild mitral regurgitation. No evidence of mitral stenosis. Myxomatous degeneration of mitral valve. PV: Trace pulmonic regurgitation. No evidence of pulmonic valve stenosis. TV: A trace of tricuspid regurgitation. No evidence of tricuspid valve stenosis. ++++++++++++++++++++++++++++++++++++ MEASUREMENTS: ++++++++++++++++++++++++++++++++++++ DOPPLER LVOT LVOTpkPG 2.1 mmHg LVOTmnPG 1.2 mmHg LVOTpkVel 73.1 cm/s (70-110) LVOT SV 36 ml LVOT TVI 12.1 cm LVOT CO 66.7 ml/s AV Forward Flow AV TVI 20.9 cm AV pkPG 7 mmHg AV pkVel 129 cm/s (100-170)+ Area (TVI) 1.73 cm2 (3-5)* AV mnVel 87.8 cm/s Area (Tyler) 1.69 cm2 (3-5)* AV mnPG 3.6 mmHg MV Forward Flow MV DeTm 209 msec MV mnPG 4 mmHg MVA P1/2t 3.61 cm2 (4-6)* MV pkPG 7 mmHg MV P1/2t 61 msec (30-60)+* MV pkE 112 cm/s (60-130) Lat E' Lat e 6.42 cm/s Lat E/E' Lat E/e 17.4 Med E' Med e 9.57 cm/s Med E/E' Med E/e 11.7 Aortic Valve Aortic Valve Ar 0.78 Aortic Valve Ve 0.57 AV DI Value 0.6 JUAN DANIEL (VTI) Index Value 0.78 LV Mass 2D Value 234 g LV Mass [id number] Value 106 g/m2 Right Ventricle Right Ventricle 11.2 cm/s 2D Left Ventricle LVIDd 4.79 cm (3.6-5.2) LVIDs 3.82 cm (2.3-3.9) LVPW LVPWd 1.22 cm LVPWth 11.5 % LVPWs 1.36 cm Ventricular Septum IVSd 1.3 cm IVSs 1.7 cm Aorta Ao Rtd 3 cm Ao Asc 2.9 cm (2.1-3.4) LVOT LVOT 1.95 cm Ratios IVS LA Biplane LAVol I BP 21.9 ml/m2 Right Ventricle Right Ventricle 3.2 cm Right Ventricle 2.4 cm [place] 7.5 cm MMODE TA Tricuspid Annul 2.22 cm <Electronic Signature> 10/16/2024 10:33 AM Rose Conn M.D. Procedure Note Rose Conn MD - 10/16/2024 Echocardiography Report Pat.Name: CEM MARSHALL Pat.ID: [id number] .Date: 10/15/2024 Refer.: [id number] LISSY Morley EWDPROV EWDPROV Exam Time: 1:54:00 PM Study Type:ECHO W/CONTRAST COMPLETE Height: 65 in Weight: 260 lb BSA: 2.21 m2 Age: 4 1975,48Y Sex: F BP: 93/65 HR: 120 bpm Sonogrphr: Adam Gregory [facility] Pat. Stat.:Inpatient Room: [place] [address] CPT - 4: C8929 Reason for Study:Hypoxia Procedures: 2D, M-mode, Doppler, Color Flow, Definity was used to enhance endocardial definition. Portable, The study quality is technically difficult. ++++++++++++++++++++++++++++++++++++ SUMMARY: ++++++++++++++++++++++++++++++++++++ The left ventricular size is normal. Estimated left ventricular ejection fraction is 40-50%. Mild concentric left ventricular hypertrophy. Mild global hypokinesis is noted. The right ventricular size is normal. Right ventricular systolic function is normal. Inferior vena cava shows <50% collapse with respiration consistent with elevated right atrial pressure. Trace aortic regurgitation. Mild aortic valve sclerosis. Trace to mild mitral regurgitation. Myxomatous degeneration of mitral valve. A trace of tricuspid regurgitation. ++++++++++++++++++++++++++++++++++++ FINDINGS: ++++++++++++++++++++++++++++++++++++ LV: The left ventricular size is normal. The left ventricular systolic function is mildly depressed. Estimated left ventricular ejection fraction is 40-50%. Mild concentric left ventricular hypertrophy. The septal E/e' is indeterminate at 8-15. The lateral E/e' is elevated at >11. The average E/e' is indeterminate at 8-15 and EF < 50. Left ventricular diastolic function is abnormal. Difficult to assess overall left ventricular function; however it appears preserved. WM: Mild global hypokinesis is noted. LVOT: The left ventricular outflow tract size is normal. RV: The right ventricular size is normal. Right ventricular systolic function is normal. TAPSE = 22mm (<16 mm indicates systolic RV dysfunction). LA: The left atrial size is normal. The left atrial volume is normal ( less than 34 ml/M2). RA: Right atrial size is normal. IAS: Atrial septum appears intact. ADA: No evidence of pericardial effusion. AO: The aortic root measures 3.0 cm. The proximal ascending aorta measures 2.9cm. PA: Unable to reliably quantitate pulmonary systolic pressure. SVn: Inferior vena cava is mildly enlarged. Inferior vena cava shows <50% collapse with respiration consistent with elevated right atrial pressure. Other: Definity given through IV, however, Definity was not visualized inside the heart. AV: The aortic valve is trileaflet. No evidence of aortic valve stenosis. Trace aortic regurgitation. Mild aortic valve sclerosis. MV: Trace to mild mitral regurgitation. No evidence of mitral stenosis. Myxomatous degeneration of mitral valve. PV: Trace pulmonic regurgitation. No evidence of pulmonic valve stenosis. TV: A trace of tricuspid regurgitation. No evidence of tricuspid valve stenosis. ++++++++++++++++++++++++++++++++++++ MEASUREMENTS: ++++++++++++++++++++++++++++++++++++ DOPPLER LVOT LVOTpkPG 2.1 mmHg LVOTmnPG 1.2 mmHg LVOTpkVel 73.1 cm/s (70-110) LVOT SV 36 ml LVOT TVI 12.1 cm LVOT CO 66.7 ml/s AV Forward Flow AV TVI 20.9 cm AV pkPG 7 mmHg AV pkVel 129 cm/s (100-170)+ Area (TVI) 1.73 cm2 (3-5)* AV mnVel 87.8 cm/s Area (Tyler) 1.69 cm2 (3-5)* AV mnPG 3.6 mmHg MV Forward Flow MV DeTm 209 msec MV mnPG 4 mmHg MVA P1/2t 3.61 cm2 (4-6)* MV pkPG 7 mmHg MV P1/2t 61 msec (30-60)+* MV pkE 112 cm/s (60-130) Lat E' Lat e 6.42 cm/s Lat E/E' Lat E/e 17.4 Med E' Med e 9.57 cm/s Med E/E' Med E/e 11.7 Aortic Valve Aortic Valve Ar 0.78 Aortic Valve Ve 0.57 AV DI Value 0.6 JUAN DANIEL (VTI) Index Value 0.78 LV Mass 2D Value 234 g LV Mass [id number] Value 106 g/m2 Right Ventricle Right Ventricle 11.2 cm/s 2D Left Ventricle LVIDd 4.79 cm (3.6-5.2) LVIDs 3.82 cm (2.3-3.9) LVPW LVPWd 1.22 cm LVPWth 11.5 % LVPWs 1.36 cm Ventricular Septum IVSd 1.3 cm IVSs 1.7 cm Aorta Ao Rtd 3 cm Ao Asc 2.9 cm (2.1-3.4) LVOT LVOT 1.95 cm Ratios IVS LA Biplane LAVol I BP 21.9 ml/m2 Right Ventricle Right Ventricle 3.2 cm Right Ventricle 2.4 cm [place] 7.5 cm MMODE TA Tricuspid Annul 2.22 cm <Electronic Signature> 10/16/2024 10:33 AM Rose Conn M.D. us Segundo Storm MD ECHO Final Result * CULTURE, RESPIRATORY W/ GRAM STAIN (10/15/2024 2:20 PM HI LO DRIVER) SPEC DESCRIPTION SPUTUM, INDUCED 10/15/2024 2:26 PM HI LO DRIVER [facility] SPECIAL REQUESTS NO SPECIAL REQUEST 10/15/2024 2:26 PM HI LO DRIVER [facility] GRAM STAIN RESULT <10 EPITHELIAL CELLS PER LPF 10/15/2024 3:23 PM HI LO DRIVER [facility] GRAM STAIN RESULT 10-25 NEUTROPHILS PER LPF 10/15/2024 3:23 PM HI LO DRIVER [facility] GRAM STAIN RESULT MANY GRAM POSITIVE RODS 10/15/2024 3:23 PM HI LO DRIVER [facility] GRAM STAIN RESULT MANY GRAM POSITIVE COCCI IN PAIRS, CHAINS, AND CLUSTERS 10/15/2024 3:23 PM HI LO DRIVER [facility] GRAM STAIN RESULT MODERATE BUDDING YEAST CELLS 10/15/2024 3:23 PM HI LO DRIVER [facility] GRAM STAIN RESULT FEW GRAM NEGATIVE RODS 10/15/2024 3:23 PM HI LO DRIVER [facility] CULTURE RESULT MANY MICROCOCCUS SPECIES 10/17/2024 9:22 AM CDT [facility] CULTURE RESULT FEW ALPHA STREPTOCOCCUS 10/17/2024 9:22 AM CDT [facility] CULTURE RESULT FEW YEAST 10/17/2024 9:22 AM CDT [facility] SPUTUM SPECIMEN OBTAINED BY SPUTUM INDUCTION / Unknown 10/15/2024 2:20 PM HI LO DRIVER 10/15/2024 2:38 PM HI LO DRIVER us Balaji Bartlett MD MICROBIOLOGY - GENERAL ORDER JAROD Final Result [facility] [address] [place] [address], [place] [phone] * BIOFIRE PCR UPPER RESPIRATORY PROFILE (RESPIRATORY PCR PANEL 2) (10/15/2024 1:32 PM HI LO DRIVER) ADENOVIRUS PCR (RESP) NOT DETECTED NOT DETECTED 10/15/2024 2:49 PM HI LO DRIVER [facility] CORONAVIRUS 229E PCR (RESP) NOT DETECTED NOT DETECTED 10/15/2024 2:49 PM HI LO DRIVER [facility] CORONAVIRUS HKU1 PCR (RESP) NOT DETECTED NOT DETECTED 10/15/2024 2:49 PM HI LO DRIVER [facility] CORONAVIRUS NL63 PCR (RESP) NOT DETECTED NOT DETECTED 10/15/2024 2:49 PM HI LO DRIVER [facility] CORONAVIRUS OC43 PCR (RESP) NOT DETECTED NOT DETECTED 10/15/2024 2:49 PM HI LO DRIVER [facility] METAPNEUMOVIRUS PCR (RESP) NOT DETECTED NOT DETECTED 10/15/2024 2:49 PM HI LO DRIVER [facility] RHINOVIRUS/ENTEROV IRUS PCR (RESP) NOT DETECTED NOT DETECTED 10/15/2024 2:49 PM HI LO DRIVER [facility] INFLUENZA A PCR (RESP) NOT DETECTED NOT DETECTED 10/15/2024 2:49 PM HI LO DRIVER [facility] INFLUENZA B PCR (RESP) NOT DETECTED NOT DETECTED 10/15/2024 2:49 PM HI LO DRIVER [facility] PARAINFLUENZA 1 PCR (RESP) NOT DETECTED NOT DETECTED 10/15/2024 2:49 PM HI LO DRIVER [facility] PARAINFLUENZA 2 PCR (RESP) NOT DETECTED NOT DETECTED 10/15/2024 2:49 PM HI LO DRIVER [facility] PARAINFLUENZA 3 PCR (RESP) NOT DETECTED NOT DETECTED 10/15/2024 2:49 PM HI LO DRIVER [facility] PARAINFLUENZA 4 PCR (RESP) NOT DETECTED NOT DETECTED 10/15/2024 2:49 PM HI LO DRIVER [facility] RSV PCR (RESP) NOT DETECTED NOT DETECTED 10/15/2024 2:49 PM HI LO DRIVER [facility] B PARAPERTUSIS PCR (RESP) NOT DETECTED NOT DETECTED 10/15/2024 2:49 PM HI LO DRIVER [facility] BORDETELLA PERTUSSIS PCR (RESP) NOT DETECTED NOT DETECTED 10/15/2024 2:49 PM HI LO DRIVER [facility] CHLAMYDOPHILA PNEUMONIAE PCR (RESP) NOT DETECTED NOT DETECTED 10/15/2024 2:49 PM HI LO DRIVER [facility] MYCOPLASMA PNEUMONIAE PCR (RESP) NOT DETECTED NOT DETECTED 10/15/2024 2:49 PM HI LO DRIVER [facility] CORONAVIRUS SARS COV 2 PCR (RESP) NOT DETECTED NOT DETECTED 10/15/2024 2:49 PM HI LO DRIVER [facility] NASOPHARYNGEAL SWAB / Unknown 10/15/2024 1:32 PM HI LO DRIVER us Balaji Bartlett MD MICROBIOLOGY - GENERAL ORDER JAROD Final Result [facility] [address] [place] [address], [id number] * MRSA SCREENING (10/15/2024 12:54 PM HI LO DRIVER) SPECIMEN SOURCE RESPIRATORY, NOSE 10/15/2024 12:53 PM HI LO DRIVER [facility] MRSA BY PCR NASAL METHICILLIN RESISTANT STAPH AUREUS NOT DETECTED METHICILLIN RESISTANT STAPH AUREUS NOT DETECTED 10/17/2024 11:28 AM CDT [facility] NASAL STRUCTURE / Unknown 10/15/2024 12:54 PM HI LO DRIVER Segundo Storm MD MICROBIOLOGY - GENERAL ORDERAB LES Final Result Performing Organization Address [facility] de Phone Number [facility] [address] [place] [address], [place] [phone] * CULTURE, URINE (10/15/2024 12:53 PM HI LO DRIVER) Only the most recent of3 resultswithin the time period is included. SPEC DESCRIPTION URINE CLEAN CATCH 10/15/2024 12:57 PM HI LO DRIVER [facility] SPECIAL REQUESTS NO SPECIAL REQUEST 10/15/2024 12:57 PM HI LO DRIVER [facility] CULTURE RESULT >25,000 TO 50,000 CFU/mL YEAST 10/18/2024 7:42 AM CDT [facility] URINE SPECIMEN OBTAINED BY CLEAN CATCH PROCEDURE / Unknown 10/15/2024 12:53 PM HI LO DRIVER 10/15/2024 6:41 PM HI LO DRIVER Segundo Storm MD MICROBIOLOGY - GENERAL ORDERAB LES Final Result Performing Organization Address [facility] Co de Phone Number [facility] [address] [place] [address], [place] [phone] * CARDIAC PROFILE (CK,CKMB,TROP) (10/15/2024 9:20 AM HI LO DRIVER) CPK 33 26 - 192 U/L 10/15/2024 9:47 AM HI LO DRIVER [facility] CK-MB <1.0 0.5 - 3.6 NG/ML 10/15/2024 7:22 PM HI LO DRIVER [facility] TROPONIN I HIGH SENSITIVITY 41 0 - 51 ng/L 10/15/2024 9:47 AM HI LO DRIVER [facility] 10/15/2024 9:20 AM HI LO DRIVER us Elida Ma NP LABORATORY Final Result [facility] [address] [place] [address], [facility] [address] [place] [address], [place] [phone] * (ABNORMAL) Blood gas, venous (10/15/2024 8:37 AM HI LO DRIVER) Only the most recent of2 resultswithin the time period is included. PH VENOUS 7.36 7.32 - 7.43 10/15/2024 8:53 AM [facility] PCO2 VENOUS 49.0 MMHG 10/15/2024 8:53 AM [facility] Comment:NO REFERENCE RANGE H BEEN ESTABLISHED PO2 VENOUS <30.0 MM HG 10/15/2024 8:53 AM [facility] Comment:NO REFERENCE RANGE H BEEN ESTABLISHED TOTAL CO2 VENOUS 29.2(H) 22.0 - 26.0 MMOL/L 10/15/2024 8:53 AM [facility] BASE EXCESS VENOUS 1.5 MMOL/L 10/15/2024 8:53 AM [facility] Comment:NO REFERENCE RANGE H BEEN ESTABLISHED O2 SAT VENOUS NOT CALCULATED % 025 8:53 AM [facility] Comment:NO REFERENCE RANGE H BEEN ESTABLISHED BICARB VENOUS 27.7 22.0 - 29.0 MMOL/L 10/15/2024 8:53 AM [facility] O2 ADMIN VENOUS 5L 8:37 AM [facility] 10/15/2024 8:37 AM HI LO DRIVER us Lorenza Inman MD LABORATORY Final Resu lt Performing Organization Address [facility] Co de Phone Number [facility] [address] [place] [address], * (ABNORMAL) IRON SAT PANEL (IRON,IBC,%SAT) (10/15/2024 4:24 AM HI LO DRIVER) IRON 33(L) 50 - 170 MCG/DL 10/15/2024 5:13 AM HI LO DRIVER [facility] IRON BINDING CAPACITY 197(L) 250 - 450 MCG/DL 10/15/2024 5:13 AM HI LO DRIVER [facility] IRON SATURATION 17 % 5:13 AM HI LO DRIVER [facility] Comment:REFERENCE RANGE NOT ESTABLISHED 10/15/2024 4:24 AM HI LO DRIVER us Issa Blackman MD LABORATORY Final Result Performing Organization Address [facility] Co de Phone Number [facility] [address] [place] [address], * VITAMIN B-12 (10/15/2024 4:24 AM HI LO DRIVER) Pathologist [facility] VITAMIN B12 S/P/B 507 193 - 986 PG/ML 10/15/2024 2:10 PM HI LO DRIVER [facility] 10/15/2024 4:24 AM HI LO DRIVER us Issa Blackman MD LABORATORY Final Result Performing Organization Address [facility] Co de Phone Number [facility] [address] [place] [address], [place] [phone] * (ABNORMAL) RETICULOCYTE CT, AUTO (10/15/2024 4:24 AM HI LO DRIVER) RETICULOCYTE COUNT 6.4(H) 0.6 - 2.3 % 10/15/2024 5:01 AM HI LO DRIVER [facility] ABSOLUTE RETICULOCYTE 0.15(H) 0.02 - 0.10 x10'6/uL 10/15/2024 5:01 AM [facility] IMMATURE RETIC FRACTION 32.8(H) 3.0 - 15.9 % 10/15/2024 5:01 AM [facility] RETIC HGB 24.2(L) 28.0 - 35.0 PG 10/15/2024 5:01 AM [facility] 10/15/2024 4:24 AM HI LO DRIVER us Issa Blackman MD LABORATORY Final Result [facility] [address] [place] [address], * (ABNORMAL) COMPREHENSIVE METABOLIC PANEL (10/15/2024 4:24 AM HI LO DRIVER) Only the most recent of6 resultswithin the time period is included. SODIUM S/P/B 138 136 - 145 MMOL/L 10/15/2024 4:49 AM [facility] POTASSIUM S/P/B 4.8 3.5 - 5.1 MMOL/L 10/15/2024 4:49 AM [facility] CHLORIDE S/P/B 104 98 - 107 MMOL/L 10/15/2024 4:49 AM [facility] CO2 27.4 21.0 - 32.0 MMOL/L 10/15/2024 4:49 AM [facility] GLUCOSE 175(H) 70 - 99 MG/DL 10/15/2024 4:49 AM [facility] Comment: FASTING GLUCOSE 100 TO 125 MG/DL IS CONSISTENT WITH IMPAIRED FASTING GLUCOSE. FASTING GLUCOSE >125 MG/DL IS CONSISTENT WITH DIABETES. RANDOM GLUCOSE >200 MG/DL WITH HYPERGLYCEMIC SYMPTOMS IS CONSISTENT WITH DIABETES. PER ADA GUIDELINES BUN 38(H) 6 - 24 MG/DL 10/15/2024 4:49 AM [facility] CREATININE S/P/B 1.80(H) 0.55 - 1.02 MG/DL 10/15/2024 4:49 AM [facility] CALCIUM S/P/B 8.2(L) 8.4 - 10.5 MG/DL 10/15/2024 4:49 AM [facility] BILIRUBIN TOTAL S/P/B 0.2 0.2 - 1.0 MG/DL 10/15/2024 4:49 AM [facility] Comment: THIS ASSAY IS NOT RECOMMENDED FOR PATIENTS UNDERGOING TREATMENT WITH ELTROMBOPAG DUE TO THE POTENTIAL FOR FALSELY ELEVATED RESULTS. ALKALINE PHOSPHATASE S/P/B 115(H) 39 - 100 U/L 10/15/2024 4:49 AM [facility] AST 12(L) 15 - 37 U/L 10/15/2024 4:49 AM [facility] ALT 20 14 - 59 U/L 10/15/2024 4:49 AM [facility] TOTAL PROTEIN S/P/B 6.4 6.4 - 8.2 G/DL 10/15/2024 4:49 AM [facility] ALBUMIN S/P/B 1.4(L) 3.4 - 5.0 G/DL 10/15/2024 4:49 AM [facility] ANION GAP 6.6 5.0 - 15.0 MMOL/L 10/15/2024 4:49 AM [facility] OSMOLALITY (CALC) 299 MOSM/KG 025 4:49 AM [facility] Comment:REFERENCE RANGE NOT ESTABLISHED GFR ESTIMATE 34(L) >89 ML/MIN/1. 73 M2 10/15/2024 4:49 AM [facility] GFR NOTES GFR REFERENCE S: 10/15/2024 4:49 AM [facility] Comment: THE ESTIMATED GFR IS [...] ml/min/1.73 m2 G5,KIDNEY FAILURE: <15 ml/min/1.73 m2 10/15/2024 4:24 AM HI LO DRIVER Matt Mixon DO LABORATORY Final Result Performing Organization Address City/[facility]/ZIP Co de Phone Number [facility] [address] [place] [address], [place] [phone] * FOLIC ACID SERUM (10/15/2024 4:24 AM HI LO DRIVER) FOLATE 6.9 3.1 - 17.5 NG/ML 10/15/2024 2:10 PM HI LO DRIVER [facility] 10/15/2024 4:24 AM HI LO DRIVER Issa Blackman MD LABORATORY Final Result Performing Organization Address [facility] Co de Phone Number [facility] [address] [place] [address], [place] [phone] * FERRITIN (10/15/2024 4:24 AM HI LO DRIVER) FERRITIN 195.2 8 - 252 NG/ML 10/15/2024 5:27 AM HI LO DRIVER [facility] 10/15/2024 4:24 AM HI LO DRIVER Issa Blackman MD LABORATORY Final Result Performing Organization Address City/[facility] Co de Phone Number [facility] [address] [place] [address], [place] [phone] * IV PLACEMENT (10/14/2024 7:00 PM HI LO DRIVER) Narrative Jeffery Escobar CRNA - 10/14/2024 7:00 PM HI LO DRIVER Jeffery Escobar CRNA 10/14/2024 7:21 PM Peripheral IV Date/Time: 10/14/2024 7:00 PM Performed by: Jeffery Escobar CRNA Authorized by: Jeffery Escobar CRNA Patient Location: Floor Placed Outside of This Facility?: No Size (Guage): 20 G Orientation: Right Location: Antecubital Site Prep: Chlorhexadine Insertion Attempts: 1 Ultrasound-guided Placement: Yes Ultrasound was used to identify the vessel. It was assessed and patent. Ultrasound was used to visualized vascular needle entry into the vessel and The selected vessel appeared anatomically normal and there were no apparent abnormal findings Patient Tolerance: Tolerated well us Jeffery Escobar [employer] [place] ANESTHESIA Final Res ult * XR CHEST PA+LAT (10/14/2024 5:26 PM HI LO DRIVER) Anatomical Region Laterality Modality Chest Radiographic Marya ging 10/14/2024 5:26 PM HI LO DRIVER Impressions 10/14/2024 5:27 PM HI LO DRIVER Impression: 1. Nonspecific left basilar opacity. 2. Pulmonary vascular congestion. Referred By: Interpreted By: Tyron Fitzgerald MD, 10/14/2024 5:26 PM Narrative 10/14/2024 5:27 PM HI LO DRIVER [address] [place] [address] Examination: Chest 2 View History: Shortness of breath DATE/TIME: 10/14/2024 4:56 PM Comparison: 09/12/2024 Technique: PA and lateral views were obtained. Findings: Heart size, mediastinal contours are within normal limits. There is pulmonary vascular congestion. There is left basilar hazy opacity, atelectasis and/or infiltrate. No pleural effusion or pneumothorax. Right lung is clear. No acute osseous abnormality. Procedure Note Tyron Fitzgerald MD - 10/14/[address] [place] [address] Examination: Chest 2 View History: Shortness of breath DATE/TIME: 10/14/2024 4:56 PM Comparison: 09/12/2024 Technique: PA and lateral views were obtained. Findings: Heart size, mediastinal contours are within normal limits.There is pulmonary vascular congestion. There is left basilar hazyopacity, atelectasis and/or infiltrate. No pleural effusion orpneumothorax. Right lung is clear. No acute osseous abnormality. Impression: 1. Nonspecific left basilar opacity. 2. Pulmonary vascular congestion. Referred By: Interpreted By: Tyron Fitzgerald MD, 10/14/2024 5:26 PM us Matt Mixon DO GENERAL IMAGING Final Result * (ABNORMAL) ARTERIAL BLOOD GAS (10/14/2024 4:56 PM HI LO DRIVER) Only the most recent of3 resultswithin the time period is included. PH ARTERIAL 7.41 7.35 - 7.45 10/14/2024 5:01 PM HI LO DRIVER [facility] PCO2 41.0 35.0 - 45.0 MMHG 10/14/2024 5:01 PM [facility] PO2 85.0 83 - 108 MMHG 10/14/2024 5:01 PM [facility] TOTAL CO2 ARTERIAL 27.3(H) 19.0 - 24.0 MMOL/L 10/14/2024 5:01 PM [facility] BASE EXCESS 1.2 0 - 3 MMOL/L 10/14/2024 5:01 PM [facility] O2 SATURATION 97 94.0 - 98.0 % 10/14/2024 5:01 PM [facility] BICARB ARTERIAL 26.0 21.0 - 28.0 MMOL/L 10/14/2024 5:01 PM [facility] SILVIA TEST OK 10/14/2024 4:56 PM HI LO DRIVER [facility] O2 ADMIN ARTERIAL 2L NC 10/14/2024 4:56 PM HI LO DRIVER [facility] DRAW SITE ARTERIAL RT RADIAL 10/14/2024 4:56 PM [facility] 10/14/2024 4:56 PM HI LO DRIVER us Matt Mixon DO LABORATORY Final Result [facility] [address] [place] [address], * (ABNORMAL) BETA-HYDROXYBUTYRATE (09/12/2024 9:06 PM HI LO DRIVER) BETA-HYDROXYBU TYRATE 5.1(H) 0.0 - 0.3 MMOL/L 09/12/2024 9:13 PM HI LO DRIVER [facility] 09/12/2024 9:06 PM HI LO DRIVER Chad Vazquez DO LABORATORY Final Result [address] [address], * PARTIAL THROMBOPLASTIN TIME,PTT (09/12/2024 8:20 PM HI LO DRIVER) Only the most recent of5 resultswithin the time period is included. Pathologist [facility] PTT 34.3 25.1 - 36.5 SEC 09/12/2024 8:35 PM HI LO DRIVER [facility] 09/12/2024 8:20 PM HI LO DRIVER Malena Cortez MD LABORATORY Final Resul t Performing Organization Address City/[facility]/ZIP Co de Phone Number [place] [phone] [place] [address], * CT HEAD WO CON (09/12/2024 6:27 PM HI LO DRIVER) Anatomical Region Laterality Modality Head Computed Tomogra phy 09/12/2024 6:54 PM HI LO DRIVER Impressions 09/12/2024 6:58 PM HI LO DRIVER IMPRESSION: No definite CT evidence for acute intracranial abnormality. Please note that CT has limited sensitivity for the detection of acute ischemia. Referred By: Interpreted By: Tyron Fitzgerald MD, 09/12/2024 6:54 PM Narrative 09/12/2024 6:58 PM HI LO DRIVER [address] [place] [address] EXAMINATION: CT of the head CLINICAL HISTORY: Altered mental status COMPARISON: 03/26/2023 TECHNIQUE: CT examination of the head without contrast was performed with axial images obtained. A radiation dose lowering technique was used for this procedure, which may include, but is not limited to, dose reduction technique, automated exposure control, the use of iterative reconstruction, ALARA (As Low As Reasonably Achievable) techniques, and Image Gently techniques. FINDINGS: There is no evidence of acute intracranial hemorrhage, abnormal extra-axial collections, intracranial mass effect, or midline shift. The ventricles and extra-axial/subarachnoid spaces are unremarkable. There is no definite CT evidence to suggest acute territorial infarction. The calvarium is unremarkable without evidence of acute fracture. Stable small area of soft tissue density in the right frontal scalp. Stable hyperdense material within the right globe. The visualized mastoid air cells, paranasal sinuses, and orbits are grossly unremarkable. Procedure Note Tyron Fitzgerald MD - 09/12/[address] [place] [address] EXAMINATION: CT of the head CLINICAL HISTORY: Altered mental status COMPARISON: 03/26/2023 TECHNIQUE: CT examination of the head without contrast was performed withaxial images obtained. A radiation dose lowering technique was used forthis procedure, which may include, but is not limited to, dose reductiontechnique, automated exposure control, the use of iterativereconstruction, ALARA (As Low As Reasonably Achievable) techniques, andImage Gently techniques. FINDINGS: There is no evidence of acute intracranial hemorrhage, abnormalextra-axial collections, intracranial mass effect, or midline shift. Theventricles and extra-axial/subarachnoid spaces are unremarkable. There isno definite CT evidence to suggest acute territorial infarction. Thecalvarium is unremarkable without evidence of acute fracture. Stable smallarea of soft tissue density in the right frontal scalp. Stable hyperdensematerial within the right globe. The visualized mastoid air cells,paranasal sinuses, and orbits are grossly unremarkable. IMPRESSION: No definite CT evidence for acute intracranial abnormality. Please note that CT has limited sensitivity for the detection of acuteischemia. Referred By: Interpreted By: Tyron Fitzgerald MD, 09/12/2024 6:54 PM Chad Vazquez DO CT Final Result * CT CHEST+ABD+PEL WO CON (09/11/2024 1:56 PM HI LO DRIVER) Anatomical Region Laterality Modality Chest, Abdomen, Pelvis Computed Tomography 09/11/2024 2:02 PM [facility] DRIVER Impressions 09/11/2024 2:24 PM [facility] LO DRIVER IMPRESSION: 1. Scattered small bilateral groundglass infiltrates, likely infectious/inflammatory. Follow-up in 3-6 months for surveillance is suggested. 2. Otherwise, no acute intrathoracic, intra-abdominal or intrapelvic process identified. 3. Coronary artery disease. 4. Cholelithiasis. Referred By: Interpreted By: Jeffery Prado MD, 09/11/2024 2:02 PM Narrative 09/11/2024 2:24 PM HI LO DRIVER [address] [place] [address] Examination: CT of the chest, abdomen and pelvis without contrast. Exam time: 1357 hours. Clinical history: Nausea and vomiting. Urinary incontinence. Fatigue. Normal WBC count. Fell the previous day injury in the left side. History of diabetes and chronic kidney disease. Prior hysterectomy and ORIF of the left hip. Comparison: Noncontrast CT of the abdomen and pelvis, 08/19/2024. Technique: Spiral scanning was performed through the chest, abdomen and pelvis without contrast. Sagittal and coronal reconstructions were performed from the data set. Intravenous contrast was not administered due to the history of chronic kidney disease. A dose lowering technique was used for this procedure, which may include, but is not limited to, dose reduction techniques, automated exposure control, the use of iterative reconstruction and ALARA/Image Gently techniques. Findings: CT CHEST: Calcific coronary artery disease and atherosclerotic calcification of the aorta and arch vessels noted. The heart and great vessels are otherwise unremarkable for the noncontrast technique. No hilar or mediastinal adenopathy is identified. No endobronchial abnormality is identified. Sub-6 mm noncalcified nodules in the right upper lobe are considered benign based on current Fleischner Society guidelines, likely granulomas. Scattered bilateral small groundglass infiltrates are likely infectious/inflammatory in nature. Follow-up noncontrast scanning in 3-6 months for surveillance is suggested. Allowing for respiratory motion, the lungs are otherwise clear. There is no pleural effusion or pneumothorax. The chest wall structures appear intact. No acute bony injury is identified. CT ABDOMEN AND PELVIS: Cholelithiasis is again evident without signs of cholecystitis. There are bilateral renal vascular calcifications. The liver, spleen, pancreas, adrenals and kidneys are otherwise unremarkable for the noncontrast technique. The urinary bladder appears unremarkable. The uterus is not identified, compatible with the history. A normal-appearing appendix is visible. There is a moderate amount of stool in the colon. There is no ascites, lymphadenopathy or bowel distention. The caliber of the abdominal aorta is normal. No acute bony injury is identified. ORIF of the left hip again evident. Procedure Note Jeffery Prado MD - 09/11/2024 [facility] [address] [place] [address] Examination: CT of the chest, abdomen and pelvis without contrast. Exam time: 1357 hours. Clinical history: Nausea and vomiting. Urinary incontinence. Fatigue.Normal WBC count. Fell the previous day injury in the left side. Historyof diabetes and chronic kidney disease. Prior hysterectomy and ORIF ofthe left hip. Comparison: Noncontrast CT of the abdomen and pelvis, 08/19/2024. Technique: Spiral scanning was performed through the chest, abdomen andpelvis without contrast. Sagittal and coronal reconstructions wereperformed from the data set. Intravenous contrast was not administered dueto the history of chronic kidney disease. A dose lowering technique wasused for this procedure, which may include, but is not limited to, dosereduction techniques, automated exposure control, the use of iterativereconstruction and ALARA/Image Gently techniques. Findings: CT CHEST: Calcific coronary artery disease and atheroscleroticcalcification of the aorta and arch vessels noted. The heart and greatvessels are otherwise unremarkable for the noncontrast technique. Nohilar or mediastinal adenopathy is identified. No endobronchialabnormality is identified. Sub-6 mm noncalcified nodules in the rightupper lobe are considered benign based on current Fleischner Societyguidelines, likely granulomas. Scattered bilateral small groundglassinfiltrates are likely infectious/inflammatory in nature. Follow-upnoncontrast scanning in 3-6 months for surveillance is suggested.Allowing for respiratory motion, the lungs are otherwise clear. There isno pleural effusion or pneumothorax. The chest wall structures appearintact. No acute bony injury is identified. CT ABDOMEN AND PELVIS: Cholelithiasis is again evident without signs ofcholecystitis. There are bilateral renal vascular calcifications. Theliver, spleen, pancreas, adrenals and kidneys are otherwise unremarkablefor the noncontrast technique. The urinary bladder appears unremarkable.The uterus is not identified, compatible with the history. Anormal-appearing appendix is visible. There is a moderate amount of stoolin the colon. There is no ascites, lymphadenopathy or bowel distention.The caliber of the abdominal aorta is normal. No acute bony injury isidentified. ORIF of the left hip again evident. IMPRESSION: 1. Scattered small bilateral groundglass infiltrates, likelyinfectious/inflammatory. Follow-up in 3-6 months for surveillance issuggested. 2. Otherwise, no acute intrathoracic, intra-abdominal or intrapelvicprocess identified. 3. Coronary artery disease. 4. Cholelithiasis. Referred By: Interpreted By: Jeffery Prado MD, 09/11/2024 2:02 PM Malean Cortez MD CT Final Resul t * LACTIC ACID W REFLEX (SEPSIS) (09/11/2024 1:39 PM HI LO DRIVER) LACTIC ACID VENOUS 1.2 0.4 - 2.0 MMOL/L 09/11/2024 2:08 PM HI LO DRIVER [facility] 09/11/2024 1:39 PM HI LO DRIVER us Malena Cortez MD LABORATORY Final Resul t [facility] [address] [place] [address], * AMYLASE (08/19/2024 8:01 AM HI LO DRIVER) AMYLASE S/P/B 43 25 - 115 UNITS/L 08/19/2024 8:27 AM HI LO DRIVER [facility] 08/19/2024 8:01 AM HI LO DRIVER us Marciano Mora DO LABORATORY Final Result Performing Organization Address [facility]/ZIP Co de Phone Number [facility] [address] [place] [address], * LIPASE (08/19/2024 8:01 AM HI LO DRIVER) LIPASE 50 16 - 77 UNITS/L 08/19/2024 8:27 AM [facility] 08/19/2024 8:01 AM HI LO DRIVER us Marciano Mora DO LABORATORY Final Result Performing Organization Address [facility] de Phone Number [facility] [address] [place] [address], * LIPID PANEL (09/15/2023 9:04 AM HI LO DRIVER) CHOLESTEROL 181 MG/DL 09/15/2023 12:44 PM [facility] Comment:DESIRABLE: <200 TRIGLYCERIDES 196 MG/DL 09/15/2023 12:44 PM [facility] Comment:150-199 BORDERLINE H IGH HDL 55 >49 MG/DL 09/15/2023 12:44 PM [facility] LDL-C 87 MG/DL 09/15/2023 12:44 PM [facility] Comment:<100 OPTIMAL VLDL CALCULATION 39 MG/DL 09/15/19 12:44 PM [facility] Comment:REFERENCE RANGE NOT ESTABLISHED CHOL/HDL RATIO 3.3 09/15/2023 12:44 PM [facility] Comment:REFERENCE RANGE NOT ESTABLISHED LDL/HDL 1.6 09/15/2023 12:44 PM HI LO DRIVER [facility] Comment:REFERENCE RANGE NOT ESTABLISHED NON HDL CHOLESTEROL 126 MG/DL 09/15/2023 12:44 PM HI LO DRIVER [facility] Comment:REFERENCE RANGE NOT ESTABLISHED 09/15/2023 9:04 AM HI LO DRIVER Rose Conn MD LABORATORY Final Result [facility] [address] [place] [address], [place] [phone] [id number] from Last 3 Months or Most Recently Relevant to Health Maintenance Additional Health Concerns Infection Onset Date Last Indicated MRSA Comment:Added from external infection. Source: [place] [place] [facility]. 12/24/2017 Insurance [facility] MEDICAID Advance Directives * POLST (Latest Code Status on File) Date Activated Date Inactivated Comments 10/15/2024 1:52 PM 10/20/2024 6:24 PM Question Answer Comments Cardiopulmonary Resuscitatio n (CPR) If patient has no pulse and is not breathing: DO NOT Attempt Resuscitation CPR Code Limitations: No Chest Compression No Defibrillation/Cardioversion Ok to intubate Medical Interventions when N OT in Cardiopulmonary Arrest (If patient is found with a pulse and/or is breathing): Full Treatment * Full Code Date Activated Date Inactivated Comments 10/15/2024 12:50 PM 10/15/2024 1:52 PM * Full Code Date Activated Date Inactivated Comments 10/14/2024 10:10 PM 10/15/2024 12:14 PM Care Teams Armature Repairer Relationship Specialty Start Date End Date Ace Honeycutt MD [address] [place] [phone] PCP - General FAMILY PRACTICE 04/29/24 Rose Conn MD [address] [place] [address] Consulting Physician CARDIOVASCULAR DISEASE 09/07/23 Keith Goodwin MD [address] [place] [address] Consulting Physician INTERNAL MEDICINE 09/22/23
--- OUTSIDE RECORDS SUMMARY | 2024-10-28 12:34 | XMS_ITS | Patient Health Record ---
Author Organization [facility] Address [address] [place] [address] [place] [phone] Care Team Providers Care Recreation Assistant Name Role Phone Dr Arnoldo Gary Primary Care Provider Unavailab Alexi Gutierrez Unavailable [phone] REASON FOR REFERRAL No Information PLAN OF TREATMENT No Information Insurance Providers Payer Name Payer Address Payer Phone Subscriber Number Group Number Insured Name Patient Relationship to Insured Coverage Start Date Coverage End Date [facility] [address] [place] [phone] [id number] Brooke Garcia Self - patient is the insured 2
[2024-10-28 12:39] LABS: Basophils Absolute Auto 0.08 K/mm3 (0.00-0.10); Basophils Percent Auto 0.9 % (0.0-1.0); Eosinophils Percent Auto 4.6 % (1.0-6.0); Hematocrit 27.1 % (35.0-49.0); Hemoglobin 7.9 g/dL (12.0-15.0); Immature Granulocyte Absolute 0.07 K/mm3 (0.00-0.00); Immature Granulocyte Percent A 0.8 % (0.0-0.0); Lymphocytes Absolute Auto 1.18 K/mm3 (1.10-4.50); Lymphocytes Percent Auto 13.7 % (18.0-42.0); Mean Corpuscular HGB Conc 29.2 g/dL (32-36); Mean Corpuscular Hemoglobin 28.8 pg (27.0-31.0); Mean Corpuscular Volume 98.9 fL (78.0-102.0); Mean Platelet Volume 11.6 fl (9.2-11.8); Monocytes Absolute Auto 0.75 K/mm3 (0.10-0.90); Monocytes Percent Auto 8.7 % (2.0-11.0); Neutrophils Absolute Auto 6.14 K/mm3 (1.70-7.20); Neutrophils Percent Auto 71.3 % (50.0-70.0); Nucleated Red Blood Cells Absolute Auto 0.02 K/mm3 (0.00-0.00); Nucleated Red Blood Cells Perc 0.2 % (0-0.0); Platelet Count Result 233 K/mm3 (150-420); Red Blood Count 2.74 M/mm3 (4.20-5.40); Red Cell Distribution Width 17.4 % (11.6-14.4); White Blood Count 8.6 K/mm3 (4.8-10.8)
[2024-10-28 12:41] LABS: Influenza A QL RT-PCR Negative (Negative); Influenza B QL RT-PCR Negative (Negative); RSV RNA, RT-PCR Negative (Negative); SARS-CoV-2 RNA PCR Negative (Negative)
[2024-10-28 12:51] LABS: INR 0.9; Partial Thromboplastin Time 25.6 Sec (23.9-30.70); Prothrombin Time 10.5 Seconds (9.50-12.1)
[2024-10-28 12:58] LABS: D Dimer 2.34 mg/L (0.19-0.50)
[2024-10-28 12:59] LABS: Troponin I 755.6 ng/L (0.00-60.4)
[2024-10-28 13:00] LABS: Alanine Aminotransferase 20 U/L (14-59); Alkaline Phosphatase 183 U/L (46-116); Bilirubin,Total 0.7 mg/dL (0.00-1.00); Blood Urea Nitrogen 68 mg/dL (7-18); Calcium 9.2 mg/dL (8.5-10.1); Carbon Dioxide 26 mmol/L (21-32); Estimated CRCL calculation 47 ml/min; Estimated Glomerular Filt Rate 37; Glucose 204 mg/dL (70-99); NT Pro B Type Natriuretic Pept 10650 pg/mL (0-125); Total Protein 7.6 g/dL (6.4-8.2)
--- OUTSIDE RECORDS SUMMARY | 2024-10-28 13:14 | XMS_ITS | Encounter Summary ---
Author Organization [facility] Healthcare Address [address] [place] [address] Care Team Providers Care Liquor Maker Name Role Phone Arnoldo Gary MD Primary Care Provider [phone] Miscellaneous, Not In File Primary Care Provider Unavailable Donte Lucas Primary Care Provider Encounter Details Date Type Department Care Team (Late st Contact Info) Description 09/26/[address] [facility] [address] [place] [address] Leydi Bush, RN Social History [...] often do you attend chur ch or episcopal services? Never 09/24/2021 Do you belong to any clubs o r organizations such as yazidi groups, unions, fraternal or athletic groups, or [...] on file Legal Sex Female 11:01 PM ACTING PROFESSOR Gender Identity Not on file Sexual Orientation Not on file documented as of this encounter Plan of Treatment Not on file documented as of this encounter Visit Diagnoses Not on filedocumented in this encounter Additional Health Concerns Infection Onset Date Last Indicated Resolved Time COVID: Suspected 09/13/2024 09/13/2024 09/13/2024 2:58 AM ACTING PROFESSOR Influenza, adult 09/13/2024 09/13/2024 09/28/2024 11:27 AM ACTING PROFESSOR C. difficile suspected 09/25/2024 09/26/202409/26 4:13 AM ACTING PROFESSOR documented as of this encounter Care Teams Liquor Maker Relationship Specialty Start Date End Date Arnoldo Gary MD [address] [place] [address] PCP - General 12/22/17 05/23/23 Miscellaneous, Not In File PCP - General 05/24/23 Donte Lucas PA [address] [place] [id number] PCP - General Physician Frickertron Checker 08/26/24 documented as of this encounter
--- OUTSIDE RECORDS SUMMARY | 2024-10-28 13:14 | XMS_ITS | Clinical Summary ---
Author Organization [employer] [facility] Address [address] [place] [address] Phone Care Team Providers Care Food Safety Field Specialist Name Role Phone Arnoldo Gary MD Primary Care Provider [phone] Allergies Active Allergy Reactions Criticality Noted Date [...] migh t be different from the original. 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 Gender Identity Not on file Sexual Orientation [...] (#1) 2024 Medical Devices Implanted Type Area Security Clerk Device Identifier Shelf Expiration Date Model / Serial / Lot Tfna Fenestrated Screw 90mm Implanted:Qty: 1 on 03/27/2021 by Bob Deras MD at [facility] Screw Left: Hip [employer] [facility] 02/06/2031 04.038.19 0 S / / [id number] Screw Loc Stardrv 5x62mm Strl 04.005.552s - Sload 23 Implanted:Qty: 1 on 03/27/2021 by Bob Deras MD at [facility] Screw Left: Hip [employer] 04.005.55 2 S / LOAD 03/14/21 11mm/125deg Ti Js Tfna 380mm/Left Implanted:Qty: 1 on 03/27/2021 by Bob Deras MD at [facility] Left: Hip [employer] 01/07/2030 04.037.12 9 S / / [id number] Description:All [employer]ynthe[employer] comp onents are processed on requisition, [id number]. Procedures Procedure Name Priority Date/Time Associated Diagnosis Comments HEMOGLOBIN A1C Stat 04/25/2022 3:22 AM CDT LIPID PANEL Routine 04/20/2021 5:30 AM CDT MICROALBUMIN/CREATIN INE RATIO, RANDOM UR Routine 06/26/2014 Diabetes mellitus ([facility]) from Last 3 Months or Most Recently Relevant to Health Maintenance Results * (ABNORMAL) HEMOGLOBIN A1C (04/25/2022 3:22 AM CDT) HEMOGLOBIN A1C 8.2(H) <=5.6 % 04/25/2022 4:13 AM CDT [facility] EST. AVG GLUCOSE, A1C 189 mg/dL 04/25/2022 4:13 AM CDT [facility] Blood Venipuncture / Unknown 04/25/2022 3:22 AM CDT 04/25/2022 3:43 AM CDT Narrative [facility] - 04/25/2022 4:13 AM CDT HGB A1C INTERPRETATION NORMAL: <5.7% PRE-DIABETES: 5.7 - 6.4% DIABETES: 6.5% OR GREATER us Alphonse Samson MD CHEMISTRY ORDERABLES Final Result [facility] CLIA # [id number] [address] [place] [id number] * (ABNORMAL) LIPID PANEL (04/20/2021 5:30 AM CDT) CHOLESTEROL 166 <200 mg/dL 04/20/2021 6:55 AM T [facility] TRIGLYCERIDE 83 <150 mg/dL 04/20/2021 6:55 AM T [facility] HDL 40 40 - 59 mg/dL 04/20/2021 6:55 AM T [facility] LDL CALCULATED 109(H) <100 mg/dL 04/20/2021 6:55 AM T [facility] NON-HDL CHOLESTEROL 126 <130 mg/dL 04/20/2021 6:55 AM T [facility] Blood Venipuncture / Unknown 04/20/2021 5:30 AM CDT 04/20/2021 6:21 AM CDT [facility] - 04/20/2021 6:55 AM CDT TOTAL CHOLESTEROL [...] Reference Ranges for Lipid Panels (NCEP/AMA) . [facility] Tawana Kelly MD CHEMISTRY ORDERABLES Final Result [facility]# [id number] [address] [facility] [place] [id number] * MICROALBUMIN/CREATININE RATIO, RANDOM UR (06/26/2014) Urine specimen (specimen) us Orquidea Delgado MD URINE ORDERABLES Final Result [facility] # [id number] [address] [place] [address] from Last 3 Months or Most Recently Relevant to Health Maintenance Additional Health Concerns Infection Onset Date Last Indicated MRSA Comment:hx MRSA documented per 12/22/17 infectious disease screening form - Cierra Becker RN 12/24/2017 05/09/2024 Insurance MEDICAID [facility] MEDICARE Advance Directives For more information, please contact: [phone] * Full Code (Latest Code Status on File) Date Activated Date Inactivated Comments 04/25/2022 2:46 AM 04/29/2022 5:00 PM * Full Code Date Activated Date Inactivated Comments 05/08/2021 5:35 PM 05/24/2021 5:02 PM * Full Code Date Activated Date Inactivated Comments 03/27/2021 7:30 AM 05/08/2021 5:20 PM Care Teams Food Safety Field Specialist Relationship Specialty Start Date End Date Arnoldo Gary MD [address] [place] [phone] PCP - General Internal Medicine 03/27/21
--- OUTSIDE RECORDS SUMMARY | 2024-10-28 13:14 | XMS_ITS | Clinical Summary ---
Author Organization [facility] er Address [address] [place] [address] Care Team Providers Care Chinese Herbalist Name Role Phone Donet Lucas Primary Care Provider Allergies Active Allergy [...] hematuria 09/22/2021 Coronary artery disease invo lving algaaciq coronary artery of algaaciq heart without angina pectoris 09/22/2021 Chronic pain [...] Department Care Team Description 09/13/2024 1:12 AM TELEVISION PROGRAM DIRECTOR - 10/01/2024 5:21 PM TELEVISION PROGRAM DIRECTOR Hospital Encounter [id number] [place] [phone] Abeba Ash MD Striker, David A., MD [...] home health skilled care 08/26/2024 9:30 AM TELEVISION PROGRAM DIRECTOR Office Visit [facility] Neurology [address] [place] [phone] Kaleb Davenport Si, MD Cerebrovascular accident (CVA) [...] drink = 0.6 oz pur e alcohol) [facility] Utilities Answer Date Recorded In the past 12 months has [employer], gas, oil, or water [employer] threatened to shut off services in your [...] week 09/13/2024 How often do you attend [facility] or [facility] services? Never 09/13/2024 Do you belong to any clubs o r organizations such as hoahaoism groups, unions, fraternal or athletic groups, or [...] any time in the past 12 m [facility], were you homeless or living in a fpc (including now)? No 09/13/2024 Personal Safety Answer Date Recorded Have you ever been in or are you currently in a harmful physical or emotional relationship or is someone making you feel afraid or unsafe? Patient unable to answer 09/13/2024 Comments No Sex and Gender Information Value Date Recorded Sex Assigned at Not on file Legal Sex Female 11:01 PM TELEVISION PROGRAM DIRECTOR Gender Identity Not on file Sexual Orientation Not on file Obstetrics History Last Filed Vital Signs Vital Sign Reading Time Taken Comments Blood Pressure 148/70 10/01/2024 6:07 AM TELEVISION PROGRAM DIRECTOR Pulse 74 10/01/2024 3:00 PM TELEVISION PROGRAM DIRECTOR Temperature 36.4 C (97.6 F) 10/01/2024 3:07 AM TELEVISION PROGRAM DIRECTOR Respiratory Rate 18 10/01/2024 3:07 AM TELEVISION PROGRAM DIRECTOR Oxygen Saturation 93% 10/01/2024 2:52 PM TELEVISION PROGRAM DIRECTOR Inhaled Oxygen Concentration - - Weight 110.3 kg (243 lb 2.7 oz) 09/23/2024 8:41 PM TELEVISION PROGRAM DIRECTOR Height 165.1 cm (5' 5 ) 09/23/2024 8:41 PM TELEVISION PROGRAM DIRECTOR Body Mass Index 40.47 09/23/2024 8:41 PM TELEVISION PROGRAM DIRECTOR Plan of Treatment Health Maintenance Due Date [...] GLUCOSE DEVICE Routine 10/01/2024 4 :34 PM TELEVISION PROGRAM DIRECTOR POCT GLUCOSE DEVICE Routine 10/01/2024 11:48 AM TELEVISION PROGRAM DIRECTOR XR CHEST 1 VIEW IP Routine 10/01/2024 9:10 AM TELEVISION PROGRAM DIRECTOR EGFR Routine 10/01/2024 6:57 AM TELEVISION PROGRAM DIRECTOR BASIC METABOLIC PANEL Routine 10/01/2024 6:57 AM TELEVISION PROGRAM DIRECTOR MAGNESIUM Routine 10/01/2024 6:57 AM TELEVISION PROGRAM DIRECTOR POCT GLUCOSE DEVICE Routine 10/01/2024 6 :04 AM TELEVISION PROGRAM DIRECTOR POCT GLUCOSE DEVICE Routine 10/01/2024 2 :00 AM TELEVISION PROGRAM DIRECTOR POCT GLUCOSE DEVICE Routine 09/30/2024 9 :45 PM TELEVISION PROGRAM DIRECTOR POCT GLUCOSE DEVICE Routine 09/30/2024 4 :52 PM TELEVISION PROGRAM DIRECTOR POCT GLUCOSE DEVICE Routine 09/30/2024 11:39 AM TELEVISION PROGRAM DIRECTOR POCT GLUCOSE DEVICE Routine 09/30/2024 8 :36 AM TELEVISION PROGRAM DIRECTOR POCT GLUCOSE DEVICE Routine 09/30/2024 5 :29 AM TELEVISION PROGRAM DIRECTOR POCT GLUCOSE DEVICE Routine 09/30/2024 2 :22 AM TELEVISION PROGRAM DIRECTOR POCT GLUCOSE DEVICE Routine 09/29/2024 8 :35 PM TELEVISION PROGRAM DIRECTOR POCT GLUCOSE DEVICE Routine 09/29/2024 5 :35 PM TELEVISION PROGRAM DIRECTOR EGFR Routine 09/29/2024 3:33 PM TELEVISION PROGRAM DIRECTOR DIFFERENTIAL AUTO Routine 09/29/2024 3:3 3 PM TELEVISION PROGRAM DIRECTOR COMPREHENSIVE METABOLIC PANEL Routine 09/29/2024 3:33 PM TELEVISION PROGRAM DIRECTOR CBC WITH AUTO DIFFERENTIAL Routine 09/29/2024 3:33 PM TELEVISION PROGRAM DIRECTOR POCT GLUCOSE DEVICE Routine 09/29/2024 1 :43 PM TELEVISION PROGRAM DIRECTOR POCT GLUCOSE DEVICE Routine 09/29/2024 9 :49 AM TELEVISION PROGRAM DIRECTOR POCT GLUCOSE DEVICE Routine 09/29/2024 7 :27 AM TELEVISION PROGRAM DIRECTOR POCT GLUCOSE DEVICE Routine 09/29/2024 5 :31 AM TELEVISION PROGRAM DIRECTOR POCT GLUCOSE DEVICE Routine 09/29/2024 1 :25 AM TELEVISION PROGRAM DIRECTOR POCT GLUCOSE DEVICE Routine 09/28/2024 9 :14 PM TELEVISION PROGRAM DIRECTOR POCT GLUCOSE DEVICE Routine 09/28/2024 5 :12 PM TELEVISION PROGRAM DIRECTOR POCT GLUCOSE DEVICE Routine 09/28/2024 1 :43 PM TELEVISION PROGRAM DIRECTOR POCT GLUCOSE DEVICE Routine 09/28/2024 9 :16 AM TELEVISION PROGRAM DIRECTOR EGFR Routine 09/28/2024 7:09 AM TELEVISION PROGRAM DIRECTOR DIFFERENTIAL AUTO Routine 09/28/2024 7:0 9 AM TELEVISION PROGRAM DIRECTOR COMPREHENSIVE METABOLIC PANEL Routine 09/28/2024 7:09 AM TELEVISION PROGRAM DIRECTOR CBC WITH AUTO DIFFERENTIAL Routine 09/28/2024 7:09 AM TELEVISION PROGRAM DIRECTOR POCT GLUCOSE DEVICE Routine 09/28/2024 5 :42 AM TELEVISION PROGRAM DIRECTOR POCT GLUCOSE DEVICE Routine 09/28/2024 1 :31 AM TELEVISION PROGRAM DIRECTOR POCT GLUCOSE DEVICE Routine 09/27/2024 9 :14 PM TELEVISION PROGRAM DIRECTOR POCT GLUCOSE DEVICE Routine 09/27/2024 5 :25 PM TELEVISION PROGRAM DIRECTOR POCT GLUCOSE DEVICE Routine 09/27/2024 3 :13 PM TELEVISION PROGRAM DIRECTOR FL MODIFIED BARIUM SWALLOW W VIDEO IP Routine 09/27/2024 2:20 PM TELEVISION PROGRAM DIRECTOR POCT GLUCOSE DEVICE Routine 09/27/2024 10:05 AM TELEVISION PROGRAM DIRECTOR ADD ON LAB TEST Add-On 09/27/2024 8:43 AM TELEVISION PROGRAM DIRECTOR POCT GLUCOSE DEVICE Routine 09/27/2024 5 :57 AM TELEVISION PROGRAM DIRECTOR IRON PROFILE W/ IBC Routine 09/27/2024 5 :42 AM TELEVISION PROGRAM DIRECTOR EGFR Routine 09/27/2024 5:42 AM TELEVISION PROGRAM DIRECTOR DIFFERENTIAL AUTO Routine 09/27/2024 5:4 2 AM TELEVISION PROGRAM DIRECTOR COMPREHENSIVE METABOLIC PANEL Routine 09/27/2024 5:42 AM TELEVISION PROGRAM DIRECTOR CBC WITH AUTO DIFFERENTIAL Routine 09/27/2024 5:42 AM TELEVISION PROGRAM DIRECTOR POCT GLUCOSE DEVICE Routine 09/27/2024 2 :14 AM TELEVISION PROGRAM DIRECTOR POCT GLUCOSE DEVICE Routine 09/26/2024 9 :41 PM TELEVISION PROGRAM DIRECTOR POCT GLUCOSE DEVICE Routine 09/26/2024 6 :18 PM TELEVISION PROGRAM DIRECTOR POCT GLUCOSE DEVICE Routine 09/26/2024 2 :51 PM TELEVISION PROGRAM DIRECTOR CBC WITH AUTO DIFFERENTIAL STAT 09/26/2024 2:03 PM TELEVISION PROGRAM DIRECTOR EGFR Routine 09/26/2024 1:25 PM TELEVISION PROGRAM DIRECTOR DIFFERENTIAL AUTO Routine 09/26/2024 1:2 5 PM TELEVISION PROGRAM DIRECTOR COMPREHENSIVE METABOLIC PANEL Routine 09/26/2024 1:25 PM TELEVISION PROGRAM DIRECTOR CBC WITH AUTO DIFFERENTIAL Routine 09/26/2024 1:25 PM TELEVISION PROGRAM DIRECTOR POCT GLUCOSE DEVICE Routine 09/26/2024 10:10 AM TELEVISION PROGRAM DIRECTOR POCT GLUCOSE DEVICE Routine 09/26/2024 5 :04 AM TELEVISION PROGRAM DIRECTOR C. DIFFICILE TESTING Routine 09/26/2024 2:18 AM TELEVISION PROGRAM DIRECTOR POCT GLUCOSE DEVICE Routine 09/26/2024 12:01 AM TELEVISION PROGRAM DIRECTOR POCT GLUCOSE DEVICE Routine 09/25/2024 8 :35 PM TELEVISION PROGRAM DIRECTOR POCT GLUCOSE DEVICE Routine 09/25/2024 4 :36 PM TELEVISION PROGRAM DIRECTOR POCT GLUCOSE DEVICE Routine 09/25/2024 11:55 AM TELEVISION PROGRAM DIRECTOR POCT GLUCOSE DEVICE Routine 09/25/2024 8 :32 AM TELEVISION PROGRAM DIRECTOR EGFR Routine 09/25/2024 8:32 AM TELEVISION PROGRAM DIRECTOR DIFFERENTIAL AUTO Routine 09/25/2024 8:3 2 AM TELEVISION PROGRAM DIRECTOR COMPREHENSIVE METABOLIC PANEL Routine 09/25/2024 8:32 AM TELEVISION PROGRAM DIRECTOR CBC WITH AUTO DIFFERENTIAL Routine 09/25/2024 8:32 AM TELEVISION PROGRAM DIRECTOR POCT GLUCOSE DEVICE Routine 09/25/2024 4 :49 AM TELEVISION PROGRAM DIRECTOR POCT GLUCOSE DEVICE Routine 09/25/2024 12:48 AM TELEVISION PROGRAM DIRECTOR POCT GLUCOSE DEVICE Routine 09/24/2024 8 :56 PM TELEVISION PROGRAM DIRECTOR POCT GLUCOSE DEVICE Routine 09/24/2024 4 :20 PM TELEVISION PROGRAM DIRECTOR POCT GLUCOSE DEVICE Routine 09/24/2024 12:13 PM TELEVISION PROGRAM DIRECTOR XR CHEST 1 VIEW IP Routine 09/24/2024 8:18 AM TELEVISION PROGRAM DIRECTOR POCT GLUCOSE DEVICE Routine 09/24/2024 4 :12 AM TELEVISION PROGRAM DIRECTOR POCT GLUCOSE DEVICE Routine 09/24/2024 2 :44 AM TELEVISION PROGRAM DIRECTOR POCT GLUCOSE DEVICE Routine 09/24/2024 1 :06 AM TELEVISION PROGRAM DIRECTOR POCT GLUCOSE DEVICE Routine 09/24/2024 12:44 AM TELEVISION PROGRAM DIRECTOR POCT GLUCOSE DEVICE Routine 09/24/2024 12:22 AM TELEVISION PROGRAM DIRECTOR POCT GLUCOSE DEVICE Routine 09/23/2024 9 :34 PM TELEVISION PROGRAM DIRECTOR POCT GLUCOSE DEVICE Routine 09/23/2024 4 :10 PM TELEVISION PROGRAM DIRECTOR POCT GLUCOSE DEVICE Routine 09/23/2024 1 :10 PM TELEVISION PROGRAM DIRECTOR POCT GLUCOSE DEVICE Routine 09/23/2024 12:18 PM TELEVISION PROGRAM DIRECTOR POCT GLUCOSE DEVICE Routine 09/23/2024 11:55 AM TELEVISION PROGRAM DIRECTOR POCT GLUCOSE DEVICE Routine 09/23/2024 11:54 AM TELEVISION PROGRAM DIRECTOR POCT GLUCOSE DEVICE Routine 09/23/2024 7 :47 AM TELEVISION PROGRAM DIRECTOR POCT GLUCOSE DEVICE Routine 09/23/2024 3 :27 AM TELEVISION PROGRAM DIRECTOR POCT GLUCOSE DEVICE Routine 09/23/2024 1 :13 AM TELEVISION PROGRAM DIRECTOR POCT GLUCOSE DEVICE Routine 09/23/2024 12:17 AM TELEVISION PROGRAM DIRECTOR POCT GLUCOSE DEVICE Routine 09/22/2024 11:54 PM TELEVISION PROGRAM DIRECTOR BLOOD GAS, ARTERIAL STAT 09/22/2024 8 :33 PM TELEVISION PROGRAM DIRECTOR POCT GLUCOSE DEVICE Routine 09/22/2024 7 :46 PM TELEVISION PROGRAM DIRECTOR POCT GLUCOSE DEVICE Routine 09/22/2024 4 :04 PM TELEVISION PROGRAM DIRECTOR EXTUBATION Routine 09/22/2024 3:48 PM TELEVISION PROGRAM DIRECTOR POCT GLUCOSE DEVICE Routine 09/22/2024 11:51 AM TELEVISION PROGRAM DIRECTOR POCT GLUCOSE DEVICE Routine 09/22/2024 8 :42 AM TELEVISION PROGRAM DIRECTOR POCT GLUCOSE DEVICE Routine 09/22/2024 4 :05 AM TELEVISION PROGRAM DIRECTOR XR CHEST 1 VIEW IP Routine 09/22/2024 3:59 AM TELEVISION PROGRAM DIRECTOR EGFR Routine 09/22/2024 2:24 AM TELEVISION PROGRAM DIRECTOR CBC WITHOUT DIFFERENTIAL Routine 09/22/2024 2:24 AM TELEVISION PROGRAM DIRECTOR MAGNESIUM Routine 09/22/2024 2:24 AM TELEVISION PROGRAM DIRECTOR RENAL FUNCTION PANEL Routine 09/22/2024 2:24 AM TELEVISION PROGRAM DIRECTOR POCT GLUCOSE DEVICE Routine 09/21/2024 11:58 PM TELEVISION PROGRAM DIRECTOR POCT GLUCOSE DEVICE Routine 09/21/2024 7 :01 PM TELEVISION PROGRAM DIRECTOR POCT GLUCOSE DEVICE Routine 09/21/2024 3 :10 PM TELEVISION PROGRAM DIRECTOR POTASSIUM LEVEL STAT 09/21/2024 2:07 PM TELEVISION PROGRAM DIRECTOR POCT GLUCOSE DEVICE Routine 09/21/2024 11:30 AM TELEVISION PROGRAM DIRECTOR POCT GLUCOSE DEVICE Routine 09/21/2024 7 :19 AM TELEVISION PROGRAM DIRECTOR XR CHEST 1 VIEW IP Routine 09/21/2024 4:44 AM TELEVISION PROGRAM DIRECTOR POCT GLUCOSE DEVICE Routine 09/21/2024 3 :47 AM TELEVISION PROGRAM DIRECTOR EGFR Routine 09/21/2024 1:48 AM TELEVISION PROGRAM DIRECTOR PHOSPHORUS Routine 09/21/2024 1:48 AM TELEVISION PROGRAM DIRECTOR BILIRUBIN, DIRECT Routine 09/21/2024 1:4 8 AM TELEVISION PROGRAM DIRECTOR COMPREHENSIVE METABOLIC PANEL Routine 09/21/2024 1:48 AM TELEVISION PROGRAM DIRECTOR CBC WITHOUT DIFFERENTIAL Routine 09/21/2024 1:48 AM TELEVISION PROGRAM DIRECTOR MAGNESIUM Routine 09/21/2024 1:48 AM TELEVISION PROGRAM DIRECTOR POCT GLUCOSE DEVICE Routine 09/20/2024 11:54 PM TELEVISION PROGRAM DIRECTOR POCT GLUCOSE DEVICE Routine 09/20/2024 7 :03 PM TELEVISION PROGRAM DIRECTOR POCT GLUCOSE DEVICE Routine 09/20/2024 3 :28 PM TELEVISION PROGRAM DIRECTOR POCT GLUCOSE DEVICE Routine 09/20/2024 11:48 AM TELEVISION PROGRAM DIRECTOR BLOOD GAS, ARTERIAL STAT 09/20/2024 10:54 AM TELEVISION PROGRAM DIRECTOR XR CHEST 1 VIEW ED Urgent/IP Urgent 09/20/2024 9:17 AM TELEVISION PROGRAM DIRECTOR POCT GLUCOSE DEVICE Routine 09/20/2024 7 :20 AM TELEVISION PROGRAM DIRECTOR POCT GLUCOSE DEVICE Routine 09/20/2024 3 :37 AM TELEVISION PROGRAM DIRECTOR EGFR Routine 09/20/2024 12:27 AM TELEVISION PROGRAM DIRECTOR DIFFERENTIAL AUTO Routine 09/20/2024 12:27 AM TELEVISION PROGRAM DIRECTOR COMPREHENSIVE METABOLIC PANEL Routine 09/20/2024 12:27 AM TELEVISION PROGRAM DIRECTOR CBC WITH AUTO DIFFERENTIAL Routine 09/20/2024 12:27 AM TELEVISION PROGRAM DIRECTOR POCT GLUCOSE DEVICE Routine 09/19/2024 11:00 PM TELEVISION PROGRAM DIRECTOR POCT GLUCOSE DEVICE Routine 09/19/2024 7 :52 PM TELEVISION PROGRAM DIRECTOR POCT GLUCOSE DEVICE Routine 09/19/2024 4 :55 PM TELEVISION PROGRAM DIRECTOR POCT GLUCOSE DEVICE Routine 09/19/2024 12:31 PM TELEVISION PROGRAM DIRECTOR POTASSIUM LEVEL Timed 09/19/2024 10:04 AM TELEVISION PROGRAM DIRECTOR EEG Routine 09/19/2024 8:50 AM TELEVISION PROGRAM DIRECTOR POCT GLUCOSE DEVICE Routine 09/19/2024 7 :53 AM TELEVISION PROGRAM DIRECTOR POCT GLUCOSE DEVICE Routine 09/19/2024 3 :58 AM TELEVISION PROGRAM DIRECTOR MANUAL DIFFERENTIAL Routine 09/19/2024 1 :46 AM TELEVISION PROGRAM DIRECTOR EGFR Routine 09/19/2024 1:46 AM TELEVISION PROGRAM DIRECTOR DIFFERENTIAL AUTO Routine 09/19/2024 1:4 6 AM TELEVISION PROGRAM DIRECTOR CBC WITH AUTO DIFFERENTIAL Routine 09/19/2024 1:46 AM TELEVISION PROGRAM DIRECTOR MAGNESIUM Routine 09/19/2024 1:46 AM TELEVISION PROGRAM DIRECTOR PHOSPHORUS Routine 09/19/2024 1:46 AM TELEVISION PROGRAM DIRECTOR COMPREHENSIVE METABOLIC PANEL Routine 09/19/2024 1:46 AM TELEVISION PROGRAM DIRECTOR AMMONIA STAT 09/19/2024 1:07 AM TELEVISION PROGRAM DIRECTOR POCT GLUCOSE DEVICE Routine 09/18/2024 11:58 PM TELEVISION PROGRAM DIRECTOR POCT GLUCOSE DEVICE Routine 09/18/2024 9 :10 PM TELEVISION PROGRAM DIRECTOR POCT GLUCOSE DEVICE Routine 09/18/2024 4 :18 PM TELEVISION PROGRAM DIRECTOR POCT GLUCOSE DEVICE Routine 09/18/2024 12:07 PM TELEVISION PROGRAM DIRECTOR DIC SCHISTOCYTES STAT 09/18/2024 8:13 AM TELEVISION PROGRAM DIRECTOR DIC PLATELET STAT 09/18/2024 8:13 AM TELEVISION PROGRAM DIRECTOR DIFFERENTIAL AUTO STAT 09/18/2024 8:1 3 AM TELEVISION PROGRAM DIRECTOR CBC WITH AUTO DIFFERENTIAL STAT 09/18/2024 8:13 AM TELEVISION PROGRAM DIRECTOR DIC PROFILE Routine 09/18/2024 8:13 AM TELEVISION PROGRAM DIRECTOR POCT GLUCOSE DEVICE Routine 09/18/2024 7 :57 AM TELEVISION PROGRAM DIRECTOR POCT GLUCOSE DEVICE Routine 09/18/2024 7 :56 AM TELEVISION PROGRAM DIRECTOR EGFR Routine 09/18/2024 7:26 AM TELEVISION PROGRAM DIRECTOR VITAMIN B12 Routine 09/18/2024 7:26 AM TELEVISION PROGRAM DIRECTOR PHOSPHORUS Routine 09/18/2024 7:26 AM TELEVISION PROGRAM DIRECTOR MAGNESIUM Routine 09/18/2024 7:26 AM TELEVISION PROGRAM DIRECTOR COMPREHENSIVE METABOLIC PANEL Routine 09/18/2024 7:26 AM TELEVISION PROGRAM DIRECTOR POCT GLUCOSE DEVICE Routine 09/18/2024 4 :28 AM TELEVISION PROGRAM DIRECTOR DIC COAGULATION Routine 09/18/2024 4:20 AM TELEVISION PROGRAM DIRECTOR POCT GLUCOSE DEVICE Routine 09/17/2024 11:57 PM TELEVISION PROGRAM DIRECTOR POCT GLUCOSE DEVICE Routine 09/17/2024 8 :02 PM TELEVISION PROGRAM DIRECTOR POCT GLUCOSE DEVICE Routine 09/17/2024 4 :21 PM TELEVISION PROGRAM DIRECTOR EGFR Timed 09/17/2024 2:52 PM TELEVISION PROGRAM DIRECTOR RENAL FUNCTION PANEL Timed 09/17/2024 2:52 PM TELEVISION PROGRAM DIRECTOR POCT GLUCOSE DEVICE Routine 09/17/2024 12:23 PM TELEVISION PROGRAM DIRECTOR POCT GLUCOSE DEVICE Routine 09/17/2024 7 :09 AM TELEVISION PROGRAM DIRECTOR POCT GLUCOSE DEVICE Routine 09/17/2024 4 :42 AM TELEVISION PROGRAM DIRECTOR MANUAL DIFFERENTIAL Routine 09/17/2024 4 :10 AM TELEVISION PROGRAM DIRECTOR EGFR Routine 09/17/2024 4:10 AM TELEVISION PROGRAM DIRECTOR HAPTOGLOBIN Routine 09/17/2024 4:10 AM TELEVISION PROGRAM DIRECTOR THYROID FUNCTION CASCADE Routine 09/17/2024 4:10 AM TELEVISION PROGRAM DIRECTOR MAGNESIUM Routine 09/17/2024 4:10 AM TELEVISION PROGRAM DIRECTOR PHOSPHORUS Routine 09/17/2024 4:10 AM TELEVISION PROGRAM DIRECTOR CBC WITH AUTO DIFFERENTIAL Routine 09/17/2024 4:10 AM TELEVISION PROGRAM DIRECTOR COMPREHENSIVE METABOLIC PANEL Routine 09/17/2024 4:10 AM TELEVISION PROGRAM DIRECTOR XR CHEST 1 VIEW IP Routine 09/17/2024 2:59 AM TELEVISION PROGRAM DIRECTOR POCT GLUCOSE DEVICE Routine 09/16/2024 11:48 PM TELEVISION PROGRAM DIRECTOR POCT GLUCOSE DEVICE Routine 09/16/2024 8 :12 PM TELEVISION PROGRAM DIRECTOR POCT GLUCOSE DEVICE Routine 09/16/2024 4 :04 PM TELEVISION PROGRAM DIRECTOR POCT GLUCOSE DEVICE Routine 09/16/2024 12:27 PM TELEVISION PROGRAM DIRECTOR US VEIN DUPLEX LOWER EXTREMITY BILATERAL COMPLETE IP Routine 09/16/2024 11:24 AM TELEVISION PROGRAM DIRECTOR PA INSJ NON-TUNNELED CENTRAL VENOUS CATH AGE 5 YR/> Routine 09/16/2024 8:53 AM TELEVISION PROGRAM DIRECTOR MSSA bacteremia BLOOD CULTURE STAT 09/16/2024 8:53 AM TELEVISION PROGRAM DIRECTOR BLOOD CULTURE STAT 09/16/2024 8:45 AM TELEVISION PROGRAM DIRECTOR POCT GLUCOSE DEVICE Routine 09/16/2024 7 :33 AM TELEVISION PROGRAM DIRECTOR MANUAL DIFFERENTIAL STAT 09/16/2024 5 :30 AM TELEVISION PROGRAM DIRECTOR CBC WITH AUTO DIFFERENTIAL STAT 09/16/2024 5:30 AM TELEVISION PROGRAM DIRECTOR POCT GLUCOSE DEVICE Routine 09/16/2024 5 :23 AM TELEVISION PROGRAM DIRECTOR XR CHEST 1 VIEW Routine 09/16/2024 4:37 AM TELEVISION PROGRAM DIRECTOR TRIGLYCERIDES Routine 09/16/2024 4:05 AM TELEVISION PROGRAM DIRECTOR EGFR Routine 09/16/2024 4:05 AM TELEVISION PROGRAM DIRECTOR MAGNESIUM Routine 09/16/2024 4:05 AM TELEVISION PROGRAM DIRECTOR RENAL FUNCTION PANEL Routine 09/16/2024 4:05 AM TELEVISION PROGRAM DIRECTOR BLOOD CULTURE STAT 09/16/2024 4:05 AM TELEVISION PROGRAM DIRECTOR POCT GLUCOSE DEVICE Routine 09/16/2024 3 :45 AM TELEVISION PROGRAM DIRECTOR MRI BRAIN WO CONTRAST IP Routine 09/16/2024 1:48 AM TELEVISION PROGRAM DIRECTOR POCT GLUCOSE DEVICE Routine 09/16/2024 1 :06 AM TELEVISION PROGRAM DIRECTOR POCT GLUCOSE DEVICE Routine 09/16/2024 12:01 AM TELEVISION PROGRAM DIRECTOR POCT GLUCOSE DEVICE Routine 09/15/2024 9 :09 PM TELEVISION PROGRAM DIRECTOR POCT GLUCOSE DEVICE Routine 09/15/2024 7 :41 PM TELEVISION PROGRAM DIRECTOR POCT GLUCOSE DEVICE Routine 09/15/2024 5 :12 PM TELEVISION PROGRAM DIRECTOR POCT GLUCOSE DEVICE Routine 09/15/2024 3 :05 PM TELEVISION PROGRAM DIRECTOR AEROBIC CULTURE AND GRAM STAIN Routine 09/15/2024 1:57 PM TELEVISION PROGRAM DIRECTOR TRANSESOPHAGEAL ECHO (DEMI) W DOPPLER/CF WO CONTRAST Routine 09/15/2024 1:43 PM TELEVISION PROGRAM DIRECTOR POCT GLUCOSE DEVICE Routine 09/15/2024 1 :05 PM TELEVISION PROGRAM DIRECTOR XR CHEST 1 VIEW Critical/Life- Threatening 09/15/2024 11:41 AM TELEVISION PROGRAM DIRECTOR BLOOD GAS, ARTERIAL STAT 09/15/2024 11:34 AM TELEVISION PROGRAM DIRECTOR POCT GLUCOSE DEVICE Routine 09/15/2024 11:07 AM TELEVISION PROGRAM DIRECTOR INTUBATION Routine 09/15/2024 10:31 AM TELEVISION PROGRAM DIRECTOR Toxic metabolic encephalopathy MONITOR EXHALED CO2 Routine 09/15/2024 10:30 AM TELEVISION PROGRAM DIRECTOR POCT GLUCOSE DEVICE Routine 09/15/2024 9 :16 AM TELEVISION PROGRAM DIRECTOR POCT GLUCOSE DEVICE Routine 09/15/2024 7 :06 AM TELEVISION PROGRAM DIRECTOR POCT GLUCOSE DEVICE Routine 09/15/2024 5 :27 AM TELEVISION PROGRAM DIRECTOR POCT GLUCOSE DEVICE Routine 09/15/2024 3 :51 AM TELEVISION PROGRAM DIRECTOR APTT Timed 09/15/2024 3:48 AM TELEVISION PROGRAM DIRECTOR XR CHEST 1 VIEW IP Routine 09/15/2024 3:41 AM TELEVISION PROGRAM DIRECTOR EGFR Routine 09/15/2024 1:50 AM TELEVISION PROGRAM DIRECTOR PHOSPHORUS Routine 09/15/2024 1:50 AM TELEVISION PROGRAM DIRECTOR BILIRUBIN, DIRECT Routine 09/15/2024 1:5 0 AM TELEVISION PROGRAM DIRECTOR COMPREHENSIVE METABOLIC PANEL Routine 09/15/2024 1:50 AM TELEVISION PROGRAM DIRECTOR CBC WITHOUT DIFFERENTIAL Routine 09/15/2024 1:50 AM TELEVISION PROGRAM DIRECTOR MAGNESIUM Routine 09/15/2024 1:50 AM TELEVISION PROGRAM DIRECTOR POCT GLUCOSE DEVICE Routine 09/15/2024 12:53 AM TELEVISION PROGRAM DIRECTOR POCT GLUCOSE DEVICE Routine 09/14/2024 11:15 PM TELEVISION PROGRAM DIRECTOR APTT Timed 09/14/2024 9:19 PM TELEVISION PROGRAM DIRECTOR POCT GLUCOSE DEVICE Routine 09/14/2024 9 :16 PM TELEVISION PROGRAM DIRECTOR POCT GLUCOSE DEVICE Routine 09/14/2024 7 :20 PM TELEVISION PROGRAM DIRECTOR POCT GLUCOSE DEVICE Routine 09/14/2024 6 :16 PM TELEVISION PROGRAM DIRECTOR POCT GLUCOSE DEVICE Routine 09/14/2024 4 :55 PM TELEVISION PROGRAM DIRECTOR POCT GLUCOSE DEVICE Routine 09/14/2024 4 :10 PM TELEVISION PROGRAM DIRECTOR POCT GLUCOSE DEVICE Routine 09/14/2024 3 :03 PM TELEVISION PROGRAM DIRECTOR EGFR Timed 09/14/2024 1:05 PM TELEVISION PROGRAM DIRECTOR RENAL FUNCTION PANEL Timed 09/14/2024 1:05 PM TELEVISION PROGRAM DIRECTOR APTT Timed 09/14/2024 1:05 PM TELEVISION PROGRAM DIRECTOR POCT GLUCOSE DEVICE Routine 09/14/2024 12:55 PM TELEVISION PROGRAM DIRECTOR POCT GLUCOSE DEVICE Routine 09/14/2024 12:01 PM TELEVISION PROGRAM DIRECTOR POCT GLUCOSE DEVICE Routine 09/14/2024 11:05 AM TELEVISION PROGRAM DIRECTOR POCT GLUCOSE DEVICE Routine 09/14/2024 10:04 AM TELEVISION PROGRAM DIRECTOR BLOOD CULTURE STAT 09/14/2024 9:42 AM TELEVISION PROGRAM DIRECTOR BLOOD CULTURE STAT 09/14/2024 9:42 AM TELEVISION PROGRAM DIRECTOR POCT GLUCOSE DEVICE Routine 09/14/2024 8 :56 AM TELEVISION PROGRAM DIRECTOR BLOOD GAS, ARTERIAL STAT 09/14/2024 8 :08 AM TELEVISION PROGRAM DIRECTOR POCT GLUCOSE DEVICE Routine 09/14/2024 7 :50 AM TELEVISION PROGRAM DIRECTOR APTT Timed 09/14/2024 6:06 AM TELEVISION PROGRAM DIRECTOR POCT GLUCOSE DEVICE Routine 09/14/2024 4 :10 AM TELEVISION PROGRAM DIRECTOR XR CHEST 1 VIEW IP Routine 09/14/2024 3:10 AM TELEVISION PROGRAM DIRECTOR MANUAL DIFFERENTIAL Routine 09/14/2024 1 :59 AM TELEVISION PROGRAM DIRECTOR EGFR Routine 09/14/2024 1:59 AM TELEVISION PROGRAM DIRECTOR PHOSPHORUS Routine 09/14/2024 1:59 AM TELEVISION PROGRAM DIRECTOR BILIRUBIN, DIRECT Routine 09/14/2024 1:5 9 AM TELEVISION PROGRAM DIRECTOR COMPREHENSIVE METABOLIC PANEL Routine 09/14/2024 1:59 AM TELEVISION PROGRAM DIRECTOR CBC WITHOUT DIFFERENTIAL Routine 09/14/2024 1:59 AM TELEVISION PROGRAM DIRECTOR MAGNESIUM Routine 09/14/2024 1:59 AM TELEVISION PROGRAM DIRECTOR POCT GLUCOSE DEVICE Routine 09/14/2024 12:41 AM TELEVISION PROGRAM DIRECTOR APTT Timed 09/13/2024 9:58 PM TELEVISION PROGRAM DIRECTOR XR ABDOMEN ERECT AND OR DECUBITS 2 VIEWS IP Routine 09/13/2024 9:41 PM TELEVISION PROGRAM DIRECTOR POCT GLUCOSE DEVICE Routine 09/13/2024 7 :57 PM TELEVISION PROGRAM DIRECTOR EGFR Timed 09/13/2024 6:33 PM TELEVISION PROGRAM DIRECTOR RENAL FUNCTION PANEL Timed 09/13/2024 6:33 PM TELEVISION PROGRAM DIRECTOR ECG 12-LEAD STAT 09/13/2024 5:24 PM TELEVISION PROGRAM DIRECTOR POCT GLUCOSE DEVICE Routine 09/13/2024 4 :29 PM TELEVISION PROGRAM DIRECTOR POCT GLUCOSE DEVICE Routine 09/13/2024 3 :18 PM TELEVISION PROGRAM DIRECTOR POCT GLUCOSE DEVICE Routine 09/13/2024 2 :29 PM TELEVISION PROGRAM DIRECTOR APTT Timed 09/13/2024 2:28 PM TELEVISION PROGRAM DIRECTOR POCT GLUCOSE DEVICE Routine 09/13/2024 1 :10 PM TELEVISION PROGRAM DIRECTOR EGFR Timed 09/13/2024 12:22 PM TELEVISION PROGRAM DIRECTOR PHOSPHORUS Timed 09/13/2024 12:22 PM TELEVISION PROGRAM DIRECTOR MAGNESIUM Timed 09/13/2024 12:22 PM TELEVISION PROGRAM DIRECTOR BASIC METABOLIC PANEL Timed 09/13/2024 12:22 PM TELEVISION PROGRAM DIRECTOR POCT GLUCOSE DEVICE Routine 09/13/2024 12:20 PM TELEVISION PROGRAM DIRECTOR US CAROTIDS DUPLEX BILATERAL IP Routine 09/13/2024 11:55 AM TELEVISION PROGRAM DIRECTOR TRANSTHORACIC ECHO (TTE) COMPLETE W DOPPLER/CF W CONTRAST Routine 09/13/2024 11:24 AM TELEVISION PROGRAM DIRECTOR POCT GLUCOSE DEVICE Routine 09/13/2024 11:12 AM TELEVISION PROGRAM DIRECTOR URINALYSIS, MICROSCOPIC ONLY Routine 09/13/2024 9:45 AM TELEVISION PROGRAM DIRECTOR DIC SCHISTOCYTES STAT 09/13/2024 9:45 AM TELEVISION PROGRAM DIRECTOR DIC PLATELET STAT 09/13/2024 9:45 AM TELEVISION PROGRAM DIRECTOR DIC COAGULATION STAT 09/13/2024 9:45 AM TELEVISION PROGRAM DIRECTOR DRUGS OF ABUSE SCREEN, URINE WITHOUT CONFIRMATION Routine 09/13/2024 9:45 AM TELEVISION PROGRAM DIRECTOR HIT ANTIBODIES W/REFLEX TO SEROTONIN RELEASE ASSAY ([facility]) Routine 09/13/2024 9:45 AM TELEVISION PROGRAM DIRECTOR DIC PROFILE STAT 09/13/2024 9:45 AM TELEVISION PROGRAM DIRECTOR AMMONIA STAT 09/13/2024 9:45 AM TELEVISION PROGRAM DIRECTOR URINE CULTURE Routine 09/13/2024 9:45 AM TELEVISION PROGRAM DIRECTOR URINALYSIS AND REFLEX TO MICROSCOPIC AND CULTURE Routine 09/13/2024 9:45 AM TELEVISION PROGRAM DIRECTOR POCT GLUCOSE DEVICE Routine 09/13/2024 9 :31 AM TELEVISION PROGRAM DIRECTOR ADD ON LAB TEST Add-On 09/13/2024 9:25 AM TELEVISION PROGRAM DIRECTOR ADD ON LAB TEST Add-On 09/13/2024 9:25 AM TELEVISION PROGRAM DIRECTOR XR CHEST 1 VIEW Critical/Life- Threatening 09/13/2024 8:30 AM TELEVISION PROGRAM DIRECTOR LIPASE Timed 09/13/2024 8:11 AM TELEVISION PROGRAM DIRECTOR AMYLASE Timed 09/13/2024 8:11 AM TELEVISION PROGRAM DIRECTOR BETA-HYDROXYBUTYRATE Timed 09/13/2024 8:11 AM TELEVISION PROGRAM DIRECTOR EGFR Timed 09/13/2024 8:11 AM TELEVISION PROGRAM DIRECTOR APTT Timed 09/13/2024 8:11 AM TELEVISION PROGRAM DIRECTOR PHOSPHORUS Timed 09/13/2024 8:11 AM TELEVISION PROGRAM DIRECTOR MAGNESIUM Timed 09/13/2024 8:11 AM TELEVISION PROGRAM DIRECTOR BASIC METABOLIC PANEL Timed 09/13/2024 8:11 AM TELEVISION PROGRAM DIRECTOR BLOOD GAS, ARTERIAL STAT 09/13/2024 7 :58 AM TELEVISION PROGRAM DIRECTOR POCT GLUCOSE DEVICE Routine 09/13/2024 7 :54 AM TELEVISION PROGRAM DIRECTOR POCT GLUCOSE DEVICE Routine 09/13/2024 6 :04 AM TELEVISION PROGRAM DIRECTOR BLOOD CULTURE Routine 09/13/2024 5:22 AM TELEVISION PROGRAM DIRECTOR POCT GLUCOSE DEVICE Routine 09/13/2024 5 :06 AM TELEVISION PROGRAM DIRECTOR POCT GLUCOSE DEVICE Routine 09/13/2024 4 :05 AM TELEVISION PROGRAM DIRECTOR CT HEAD WO CONTRAST ED Urgent/IP Urgent 09/13/2024 3:40 AM TELEVISION PROGRAM DIRECTOR POCT GLUCOSE DEVICE Routine 09/13/2024 3 :15 AM TELEVISION PROGRAM DIRECTOR URINALYSIS, MICROSCOPIC ONLY Routine 09/13/2024 2:59 AM TELEVISION PROGRAM DIRECTOR URINE CULTURE Routine 09/13/2024 2:59 AM TELEVISION PROGRAM DIRECTOR URINALYSIS AND REFLEX TO MICROSCOPIC AND CULTURE Routine 09/13/2024 2:59 AM TELEVISION PROGRAM DIRECTOR POCT GLUCOSE DEVICE Routine 09/13/2024 2 :03 AM TELEVISION PROGRAM DIRECTOR ECG 12-LEAD STAT 09/13/2024 1:58 AM TELEVISION PROGRAM DIRECTOR RESPIRATORY PATHOGEN PANEL Routine 09/13/2024 1:50 AM TELEVISION PROGRAM DIRECTOR BLOOD CULTURE Routine 09/13/2024 1:50 AM TELEVISION PROGRAM DIRECTOR EGFR STAT 09/13/2024 1:46 AM TELEVISION PROGRAM DIRECTOR DIFFERENTIAL AUTO STAT 09/13/2024 1:4 6 AM TELEVISION PROGRAM DIRECTOR HEMOGLOBIN A1C Routine 09/13/2024 1:46 AM TELEVISION PROGRAM DIRECTOR TROPONIN T HIGH-SENSITIVITY Routine 09/13/2024 1:46 AM TELEVISION PROGRAM DIRECTOR CBC WITH AUTO DIFFERENTIAL STAT 09/13/2024 1:46 AM TELEVISION PROGRAM DIRECTOR PROTIME-INR STAT 09/13/2024 1:46 AM TELEVISION PROGRAM DIRECTOR APTT STAT 09/13/2024 1:46 AM TELEVISION PROGRAM DIRECTOR PRO B-TYPE NATRIURETIC PEPTIDE STAT 09/13/2024 1:46 AM TELEVISION PROGRAM DIRECTOR PHOSPHORUS STAT 09/13/2024 1:46 AM TELEVISION PROGRAM DIRECTOR MAGNESIUM STAT 09/13/2024 1:46 AM TELEVISION PROGRAM DIRECTOR LACTATE STAT 09/13/2024 1:46 AM TELEVISION PROGRAM DIRECTOR COMPREHENSIVE METABOLIC PANEL STAT 09/13/2024 1:46 AM TELEVISION PROGRAM DIRECTOR TYPE AND SCREEN STAT 09/13/2024 1:46 AM TELEVISION PROGRAM DIRECTOR POCT GLUCOSE DEVICE Routine 09/13/2024 1 :30 AM TELEVISION PROGRAM DIRECTOR SERUM LIPID PANEL Routine 06/26/2014 8:1 1 AM TELEVISION PROGRAM DIRECTOR COLONOSCOPY REPORT 06/07/2014 from Last 3 Months or Most Recently Relevant to Health Maintenance Results * POCT glucose (10/01/2024 4:34 PM TELEVISION PROGRAM DIRECTOR) [facility] Signature Glucose, POC 143 70 - 199 mg/dL Comment: For Glucose values <35 mg/dl when Hematocrit is >60 mg/dl,the test may not accurately detect significant hypoglycemia,and testing in the Laboratory should be considered if clinically indicated. Blood 10/01/2024 4:34 PM TELEVISION PROGRAM DIRECTOR 10/01/2024 4:34 PM TELEVISION PROGRAM DIRECTOR us Chai Beck MD LAB POCT ORDERABLES - DEVICE Final Result Performing Organization Address [facility] Co de Phone Number [facility] [address] Department [place] [address] * POCT glucose (10/01/2024 11:48 AM TELEVISION PROGRAM DIRECTOR) [facility] Glucose, POC 145 70 - 199 mg/dL Comment: For Glucose values <35 mg/dl when Hematocrit is >60 mg/dl,the test may not accurately detect significant hypoglycemia,and testing in the Laboratory should be considered if clinically indicated. Blood 10/01/2024 11:4 8 AM TELEVISION PROGRAM DIRECTOR 10/01/2024 11:48 AM TELEVISION PROGRAM DIRECTOR Chai Beck MD LAB POCT ORDERABLES - DEVICE Final Result Performing Organization Address [facility] Co de Phone Number [facility] [address] Department [place] [address] * XR Chest 1 View (10/01/2024 9:10 AM TELEVISION PROGRAM DIRECTOR) Anatomical Region Laterality Modality Body, Chest N/A Computed Radiogr aphy 10/01/2024 9:17 AM TELEVISION PROGRAM DIRECTOR Impressions 10/01/2024 9:17 AM TELEVISION PROGRAM DIRECTOR Comparison 09/24/2024 Improvement in the left lower lobe and lingular consolidation. There is now a small left pleural effusion. Right lung is clear. There is no pneumothorax. The cardiomediastinal silhouette is unchanged.. Electronically signed by: Phillip Mathis MD Narrative 10/01/2024 9:17 AM TELEVISION PROGRAM DIRECTOR Chest one view HISTORY: Recent pneumonia treated [...] t * (ABNORMAL) eGFR (10/01/2024 6:57 AM TELEVISION PROGRAM DIRECTOR) eGFR 54(L) >=60 mL/min/1. 73 m2 Comment: [...] reviewed 2021. Blood 10/01/2024 6:5 7 AM TELEVISION PROGRAM DIRECTOR 10/01/2024 7:30 AM TELEVISION PROGRAM DIRECTOR Timothy Augustin MD LAB BLOOD ORDERABLES Final Re sult Performing Organization Address City/[facility] Co de Phone Number [facility] [address] [place] [address] * Magnesium (10/01/2024 6:57 AM TELEVISION PROGRAM DIRECTOR) Magnesium 1.5 1.4 - 2.5 mg/dL Blood 10/01/2024 6:57 AM TELEVISION PROGRAM DIRECTOR 10/01/2024 7:30 AM TELEVISION PROGRAM DIRECTOR Arnulfo Jordan MD LAB BLOOD ORDERABLES Final Result Performing Organization Address City/[facility]/ZIP Co de Phone Number [facility] [address] Department [place] [address] * (ABNORMAL) Basic metabolic panel (10/01/2024 6:57 AM TELEVISION PROGRAM DIRECTOR) Pathologist [facility] Sodium 140 135 - 145 mmol/L Potassium, pl 2.9(L) 3.3 - 4.9 mmol/L [facility] Chloride 108 97 - 110 mmol/L [facility] CO2 22 22 - 32 mmol/L [facility] Anion gap 10 2 - 15 mmol/L [facility] BUN 22 6 - 25 mg/dL [facility] Creatinine 1.23(H) 0.60 - 1.10 mg/dL [facility] Glucose 162 70 - 199 mg/dL [facility] Comment: Interpretive Data Fasting glucose >/= 126 [...] 2022. Calcium 8.0(L) 8.5 - 10.3 mg/dL [facility] Blood 10/01/2024 6:57 AM TELEVISION PROGRAM DIRECTOR 10/01/2024 7:30 AM TELEVISION PROGRAM DIRECTOR Timothy Augustin MD LAB BLOOD ORDERABLES Final Re sult [facility] [address] Department [place] [address] * POCT glucose (10/01/2024 6:04 AM TELEVISION PROGRAM DIRECTOR) Pathologist [facility] Glucose, POC 179 70 - 199 mg/dL Comment: For Glucose values <35 mg/dl when Hematocrit is >60 mg/dl,the test may not accurately detect significant hypoglycemia,and testing in the Laboratory should be considered if clinically indicated. Blood 10/01/2024 6:04 AM TELEVISION PROGRAM DIRECTOR 10/01/2024 6:04 AM TELEVISION PROGRAM DIRECTOR Arnulfo Jordan MD LAB POCT ORDERABLES - DEVIC E Final Result Performing Organization Address [facility] de Phone Number [facility] [address] [facility] [place] [address] * POCT glucose (10/01/2024 2:00 AM TELEVISION PROGRAM DIRECTOR) Glucose, POC 168 70 - 199 mg/dL Comment: For Glucose values <35 mg/dl when Hematocrit is >60 mg/dl,the test may not accurately detect significant hypoglycemia,and testing in the Laboratory should be considered if clinically indicated. Blood 10/01/2024 2:00 AM TELEVISION PROGRAM DIRECTOR 10/01/2024 2:00 AM TELEVISION PROGRAM DIRECTOR Arnulfo Jordan MD LAB POCT ORDERABLES - DEVIC E Final Result Performing Organization Address [facility] de Phone Number [facility] [address] [facility] [place] [address] * POCT glucose (09/30/2024 9:45 PM TELEVISION PROGRAM DIRECTOR) Glucose, POC 173 70 - 199 mg/dL Comment: For Glucose values <35 mg/dl when Hematocrit is >60 mg/dl,the test may not accurately detect significant hypoglycemia,and testing in the Laboratory should be considered if clinically indicated. Blood 09/30/2024 9:45 PM TELEVISION PROGRAM DIRECTOR 09/30/2024 9:45 PM TELEVISION PROGRAM DIRECTOR Arnulfo Jordan MD LAB POCT ORDERABLES - DEVIC E Final Result Performing Organization Address [facility] de Phone Number [facility] [address] [facility] [place] [address] * (ABNORMAL) POCT glucose (09/30/2024 4:52 PM TELEVISION PROGRAM DIRECTOR) Glucose, POC 213(H) 70 - 199 mg/dL Comment: For Glucose values <35 mg/dl when Hematocrit is >60 mg/dl,the test may not accurately detect significant hypoglycemia,and testing in the Laboratory should be considered if clinically indicated. Blood 09/30/2024 4:52 PM TELEVISION PROGRAM DIRECTOR 09/30/2024 4:52 PM TELEVISION PROGRAM DIRECTOR Arnulfo Jordan MD LAB POCT ORDERABLES - DEVIC E Final Result Performing Organization Address [facility] de Phone Number [facility] [address] [facility] [employer] [place], [place] [id number] * POCT glucose (09/30/2024 11:39 AM TELEVISION PROGRAM DIRECTOR) Glucose, POC 139 70 - 199 mg/dL Comment: For Glucose values <35 mg/dl when Hematocrit is >60 mg/dl,the test may not accurately detect significant hypoglycemia,and testing in the Laboratory should be considered if clinically indicated. Blood 09/30/2024 11:3 9 AM TELEVISION PROGRAM DIRECTOR 09/30/2024 11:39 AM TELEVISION PROGRAM DIRECTOR Result [facility] us Arnulfo Jordan MD LAB POCT ORDERABLES - DEVIC E Final Result Performing Organization Address [facility] de Phone Number [facility] [address] [facility] [place] [address] * POCT glucose (09/30/2024 8:36 AM TELEVISION PROGRAM DIRECTOR) Glucose, POC 116 70 - 199 mg/dL Comment: For Glucose values <35 mg/dl when Hematocrit is >60 mg/dl,the test may not accurately detect significant hypoglycemia,and testing in the Laboratory should be considered if clinically indicated. Blood 09/30/2024 8:36 AM TELEVISION PROGRAM DIRECTOR 09/30/2024 8:36 AM TELEVISION PROGRAM DIRECTOR us Arnulfo Jordan MD LAB POCT ORDERABLES - DEVIC E Final Result Performing Organization Address [facility]/ZIP Co de Phone Number [facility] [address] Department [place] [address] * POCT glucose (09/30/2024 5:29 AM TELEVISION PROGRAM DIRECTOR) Glucose, POC 110 70 - 199 mg/dL Comment: For Glucose values <35 mg/dl when Hematocrit is >60 mg/dl,the test may not accurately detect significant hypoglycemia,and testing in the Laboratory should be considered if clinically indicated. Blood 09/30/2024 5:29 AM TELEVISION PROGRAM DIRECTOR 09/30/2024 5:29 AM TELEVISION PROGRAM DIRECTOR Arnulfo Jordan MD LAB POCT ORDERABLES - DEVIC E Final Result Performing Organization Address [facility] de Phone Number [facility] [address] [facility] [place] [address] * POCT glucose (09/30/2024 2:22 AM TELEVISION PROGRAM DIRECTOR) Glucose, POC 183 70 - 199 mg/dL Comment: For Glucose values <35 mg/dl when Hematocrit is >60 mg/dl,the test may not accurately detect significant hypoglycemia,and testing in the Laboratory should be considered if clinically indicated. Blood 09/30/2024 2:22 AM TELEVISION PROGRAM DIRECTOR 09/30/2024 2:22 AM TELEVISION PROGRAM DIRECTOR Arnulfo Jordan MD LAB POCT ORDERABLES - DEVIC E Final Result Performing Organization Address [facility] de Phone Number [facility] [address] [facility] [place] [address] * POCT glucose (09/29/2024 8:35 PM TELEVISION PROGRAM DIRECTOR) Glucose, POC 192 70 - 199 mg/dL Comment: For Glucose values <35 mg/dl when Hematocrit is >60 mg/dl,the test may not accurately detect significant hypoglycemia,and testing in the Laboratory should be considered if clinically indicated. Blood 09/29/2024 8:35 PM TELEVISION PROGRAM DIRECTOR 09/29/2024 8:35 PM TELEVISION PROGRAM DIRECTOR Arnulfo Jordan MD LAB POCT ORDERABLES - DEVIC E Final Result Performing Organization Address [facility] Co de Phone Number [facility] [address] Department [place] [address] * (ABNORMAL) POCT glucose (09/29/2024 5:35 PM TELEVISION PROGRAM DIRECTOR) Pathologist [facility] Glucose, POC 203(H) 70 - 199 mg/dL Comment: For Glucose values <35 mg/dl when Hematocrit is >60 mg/dl,the test may not accurately detect significant hypoglycemia,and testing in the Laboratory should be considered if clinically indicated. Blood 09/29/2024 5:35 PM TELEVISION PROGRAM DIRECTOR 09/29/2024 5:35 PM TELEVISION PROGRAM DIRECTOR Arnulfo Jordan MD LAB POCT ORDERABLES - DEVIC E Final Result Performing Organization Address [facility] de Phone Number [facility] [address] Department [place] [address] * (ABNORMAL) eGFR (09/29/2024 3:33 PM TELEVISION PROGRAM DIRECTOR) [facility] eGFR 58(L) >=60 mL/min/1. 73 m2 Comment: [...] last reviewed 2021. Blood 09/29/2024 3:33 PM TELEVISION PROGRAM DIRECTOR 09/29/2024 3:45 PM TELEVISION PROGRAM DIRECTOR us Arnulfo Jordan MD LAB BLOOD ORDERABLES Final Result [facility] [address] Department [place] [address] * (ABNORMAL) Differential, auto (09/29/2024 3:33 PM TELEVISION PROGRAM DIRECTOR) Neutrophil abs 6.6(H) 1.5 - 6.5 K/cumm Imm gran abs 0.1 0.0 - 0.1 K/cumm [facility] Lymphocyte abs 0.9 0.8 - 3.3 K/cumm [facility] Monocyte abs 0.6 0.2 - 0.8 K/cumm [facility] Eosinophil abs 0.1 0.0 - 0.5 K/cumm [facility] Basophil abs 0.1 0.0 - 0.1 K/cumm [facility] Neutrophil pct 79.1 % [facility] Comment: Interpretive Data Percent cell count reference ranges are not reported, since discordance with absolute values may lead to misinterpretation of CBC data. Current Interpretive Data was last revised on 2017. Imm gran pct 0.6 % [facility] Comment: Interpretive Data Percent cell count reference ranges are not reported, since discordance with absolute values may lead to misinterpretation of CBC data. Current Interpretive Data was last revised on 2017. Lymphocyte pct 11.1 % [facility] Comment: Interpretive Data Percent cell count reference ranges are not reported, since discordance with absolute values may lead to misinterpretation of CBC data. Current Interpretive Data was last revised on 2017. Monocyte pct 7.6 % [facility] Comment: Interpretive Data Percent cell count reference ranges are not reported, since discordance with absolute values may lead to misinterpretation of CBC data. Current Interpretive Data was last revised on 2017. Eosinophil pct 0.6 % [facility] Comment: Interpretive Data Percent cell count reference ranges are not reported, since discordance with absolute values may lead to misinterpretation of CBC data. Current Interpretive Data was last revised on 2017. Basophil pct 1.0 % [facility] Comment: Interpretive Data Percent cell count reference ranges are not reported, since discordance with absolute values may lead to misinterpretation of CBC data. Current Interpretive Data was last revised on 2017. Blood 09/29/2024 3:33 PM TELEVISION PROGRAM DIRECTOR 09/29/2024 3:45 PM TELEVISION PROGRAM DIRECTOR Arnulfo Jordan MD LAB BLOOD ORDERABLES Final Result [facility] [address] Department of Laboratories [place], [place] [id number] * (ABNORMAL) CBC with auto differential (09/29/2024 3:33 PM TELEVISION PROGRAM DIRECTOR) WBC 8.3 3.8 - 9.9 K/cumm Hgb 7.8(L) 11.9 - 15.5 g/dL [facility] Hct 24.8(L) 35.6 - 45.5 % [facility] Plt 291 150 - 400 K/cumm [facility] MPV 10.9 9.1 - 12.3 fL [facility] RBC 2.59(L) 3.90 - 5.20 M/cumm [facility] MCV 95.8 81.3 - 96.4 fL [facility] MCH 30.1 27.1 - 33.3 pg [facility] MCHC 31.5(L) 32.3 - 35.7 g/dL [facility] RDW CV 16.6(H) 11.1 - 14.9 % [facility] RDW SD 56.7(H) 35.7 - 48.1 fL [facility] NRBC abs 0.02(H) 0.00 - 0.01 K/cumm [facility] Blood 09/29/2024 3:33 PM TELEVISION PROGRAM DIRECTOR 09/29/2024 3:45 PM TELEVISION PROGRAM DIRECTOR Arnulfo Jordan MD LAB BLOOD ORDERABLES Final Result [facility] [address] Department [place] [address] * (ABNORMAL) Comprehensive metabolic panel (09/29/2024 3:33 PM TELEVISION PROGRAM DIRECTOR) Sodium 141 135 - 145 mmol/L Potassium, pl 2.9(L) 3.3 - 4.9 mmol/L [facility] Chloride 110 97 - 110 mmol/L [facility] CO2 20(L) 22 - 32 mmol/L [facility] Anion gap 11 2 - 15 mmol/L [facility] BUN 19 6 - 25 mg/dL [facility] Creatinine 1.15(H) 0.60 - 1.10 mg/dL [facility] Glucose 207(H) 70 - 199 mg/dL [facility] Comment: Interpretive Data Fasting glucose >/= 126 [...] 2022. Calcium 7.7(L) 8.5 - 10.3 mg/dL [facility] Bilirubin, total 0.2 0.1 - 1.2 mg/dL [facility] Protein, pl 6.4(L) 6.5 - 8.5 g/dL [facility] Albumin 1.9(L) 3.5 - 5.0 g/dL [facility] Alk phos 170(H) 40 - 130 Units/L [facility] ALT 12 7 - 45 Units/L [facility] AST 27 10 - 45 Units/L [facility] Comment:Slightly Hemolyzed S pecimen Blood 09/29/2024 3:33 PM TELEVISION PROGRAM DIRECTOR 09/29/2024 3:45 PM TELEVISION PROGRAM DIRECTOR Arnulfo Jordan MD LAB BLOOD ORDERABLES Final Result Performing Organization Address [facility] de Phone Number [facility] [address] [facility] [place] [address] * POCT glucose (09/29/2024 1:43 PM TELEVISION PROGRAM DIRECTOR) Glucose, POC 164 70 - 199 mg/dL Comment: For Glucose values <35 mg/dl when Hematocrit is >60 mg/dl,the test may not accurately detect significant hypoglycemia,and testing in the Laboratory should be considered if clinically indicated. Blood 09/29/2024 1:43 PM TELEVISION PROGRAM DIRECTOR 09/29/2024 1:43 PM TELEVISION PROGRAM DIRECTOR Arnulfo Jordan MD LAB POCT ORDERABLES - DEVIC E Final Result Performing Organization Address [facility] de Phone Number [facility] [address] [facility] [place] [address] * POCT glucose (09/29/2024 9:49 AM TELEVISION PROGRAM DIRECTOR) Glucose, POC 133 70 - 199 mg/dL Comment: For Glucose values <35 mg/dl when Hematocrit is >60 mg/dl,the test may not accurately detect significant hypoglycemia,and testing in the Laboratory should be considered if clinically indicated. Blood 09/29/2024 9:49 AM TELEVISION PROGRAM DIRECTOR 09/29/2024 9:49 AM TELEVISION PROGRAM DIRECTOR Result [facility] Arnulfo Jordan MD LAB POCT ORDERABLES - DEVIC E Final Result Performing Organization Address [facility] Co de Phone Number [facility] [address] [facility] [employer] [place], [place] [id number] * POCT glucose (09/29/2024 7:27 AM TELEVISION PROGRAM DIRECTOR) Glucose, POC 114 70 - 199 mg/dL Comment: For Glucose values <35 mg/dl when Hematocrit is >60 mg/dl,the test may not accurately detect significant hypoglycemia,and testing in the Laboratory should be considered if clinically indicated. Blood 09/29/2024 7:27 AM TELEVISION PROGRAM DIRECTOR 09/29/2024 7:27 AM TELEVISION PROGRAM DIRECTOR Arnulfo Jordan MD LAB POCT ORDERABLES - DEVIC E Final Result Performing Organization Address [facility] de Phone Number [facility] [address] [facility] [place] [address] * POCT glucose (09/29/2024 5:31 AM TELEVISION PROGRAM DIRECTOR) Glucose, POC 115 70 - 199 mg/dL Comment: For Glucose values <35 mg/dl when Hematocrit is >60 mg/dl,the test may not accurately detect significant hypoglycemia,and testing in the Laboratory should be considered if clinically indicated. Blood 09/29/2024 5:31 AM TELEVISION PROGRAM DIRECTOR 09/29/2024 5:31 AM TELEVISION PROGRAM DIRECTOR Result [facility] Arnulfo Jordan MD LAB POCT ORDERABLES - DEVIC E Final Result Performing Organization Address [facility] de Phone Number [facility] [address] [facility] [place] [address] * POCT glucose (09/29/2024 1:25 AM TELEVISION PROGRAM DIRECTOR) Glucose, POC 108 70 - 199 mg/dL Comment: For Glucose values <35 mg/dl when Hematocrit is >60 mg/dl,the test may not accurately detect significant hypoglycemia,and testing in the Laboratory should be considered if clinically indicated. Blood 09/29/2024 1:25 AM TELEVISION PROGRAM DIRECTOR 09/29/2024 1:25 AM TELEVISION PROGRAM DIRECTOR Result [facility] us Arnulfo Jordan MD LAB POCT ORDERABLES - DEVIC E Final Result Performing Organization Address [facility] Co de Phone Number [facility] [address] [facility] [place] [address] * POCT glucose (09/28/2024 9:14 PM TELEVISION PROGRAM DIRECTOR) Glucose, POC 106 70 - 199 mg/dL Comment: For Glucose values <35 mg/dl when Hematocrit is >60 mg/dl,the test may not accurately detect significant hypoglycemia,and testing in the Laboratory should be considered if clinically indicated. Blood 09/28/2024 9:14 PM TELEVISION PROGRAM DIRECTOR 09/28/2024 9:14 PM TELEVISION PROGRAM DIRECTOR Arnulfo Jordan MD LAB POCT ORDERABLES - DEVIC E Final Result Performing Organization Address City/[facility] Co de Phone Number [facility] [address] Department [place] [address] * POCT glucose (09/28/2024 5:12 PM TELEVISION PROGRAM DIRECTOR) Glucose, POC 161 70 - 199 mg/dL Comment: For Glucose values <35 mg/dl when Hematocrit is >60 mg/dl,the test may not accurately detect significant hypoglycemia,and testing in the Laboratory should be considered if clinically indicated. Blood 09/28/2024 5:12 PM TELEVISION PROGRAM DIRECTOR 09/28/2024 5:12 PM TELEVISION PROGRAM DIRECTOR Arnulfo Jordan MD LAB POCT ORDERABLES - DEVIC E Final Result Performing Organization Address City/[facility]/ZIP Co de Phone Number [facility] [address] Department [place] [address] * POCT glucose (09/28/2024 1:43 PM TELEVISION PROGRAM DIRECTOR) Glucose, POC 173 70 - 199 mg/dL Comment: For Glucose values <35 mg/dl when Hematocrit is >60 mg/dl,the test may not accurately detect significant hypoglycemia,and testing in the Laboratory should be considered if clinically indicated. Blood 09/28/2024 1:43 PM TELEVISION PROGRAM DIRECTOR 09/28/2024 1:43 PM TELEVISION PROGRAM DIRECTOR Arnulfo Joradn MD LAB POCT ORDERABLES - DEVIC E Final Result Performing Organization Address [facility]/ZIP Co de Phone Number [facility] [address] [facility] [place] [address] * POCT glucose (09/28/2024 9:16 AM TELEVISION PROGRAM DIRECTOR) Glucose, POC 124 70 - 199 mg/dL Comment: For Glucose values <35 mg/dl when Hematocrit is >60 mg/dl,the test may not accurately detect significant hypoglycemia,and testing in the Laboratory should be considered if clinically indicated. Blood 09/28/2024 9:16 AM TELEVISION PROGRAM DIRECTOR 09/28/2024 9:16 AM TELEVISION PROGRAM DIRECTOR Arnulfo Jordan MD LAB POCT ORDERABLES - DEVIC E Final Result Performing Organization Address [facility] Co de Phone Number [facility] [address] Department [place] [address] * (ABNORMAL) eGFR (09/28/2024 7:09 AM TELEVISION PROGRAM DIRECTOR) eGFR 58(L) >=60 mL/min/1. 73 m2 Comment: [...] last reviewed 2021. Blood 09/28/2024 7:09 AM TELEVISION PROGRAM DIRECTOR 09/28/2024 7:45 AM TELEVISION PROGRAM DIRECTOR Arnulfo Jordan MD LAB BLOOD ORDERABLES Final Result [facility] [address] Department [place] [address] * (ABNORMAL) Differential, auto (09/28/2024 7:09 AM TELEVISION PROGRAM DIRECTOR) Neutrophil abs 5.7 1.5 - 6.5 K/cumm Imm gran abs 0.0 0.0 - 0.1 K/cumm [facility] Lymphocyte abs 0.7(L) 0.8 - 3.3 K/cumm [facility] Monocyte abs 0.5 0.2 - 0.8 K/cumm [facility] Eosinophil abs 0.1 0.0 - 0.5 K/cumm [facility] Basophil abs 0.1 0.0 - 0.1 K/cumm [facility] Neutrophil pct 80.9 % [facility] Comment: Interpretive Data Percent cell count reference ranges are not reported, since discordance with absolute values may lead to misinterpretation of CBC data. Current Interpretive Data was last revised on 2017. Imm gran pct 0.4 % [facility] Comment: Interpretive Data Percent cell count reference ranges are not reported, since discordance with absolute values may lead to misinterpretation of CBC data. Current Interpretive Data was last revised on 2017. Lymphocyte pct 9.3 % [facility] Comment: Interpretive Data Percent cell count reference ranges are not reported, since discordance with absolute values may lead to misinterpretation of CBC data. Current Interpretive Data was last revised on 2017. Monocyte pct 6.9 % [facility] Comment: Interpretive Data Percent cell count reference ranges are not reported, since discordance with absolute values may lead to misinterpretation of CBC data. Current Interpretive Data was last revised on 2017. Eosinophil pct 1.5 % [facility] Comment: Interpretive Data Percent cell count reference ranges are not reported, since discordance with absolute values may lead to misinterpretation of CBC data. Current Interpretive Data was last revised on 2017. Basophil pct 1.0 % [facility] Comment: Interpretive Data Percent cell count reference ranges are not reported, since discordance with absolute values may lead to misinterpretation of CBC data. Current Interpretive Data was last revised on 2017. Blood 09/28/2024 7:09 AM TELEVISION PROGRAM DIRECTOR 09/28/2024 7:45 AM TELEVISION PROGRAM DIRECTOR Arnulfo Jordan MD LAB BLOOD ORDERABLES Final Result Performing Organization Address City/[facility]/ZIP Co de Phone Number [facility] [address] Department [place] [address] * (ABNORMAL) CBC with auto differential (09/28/2024 7:09 AM TELEVISION PROGRAM DIRECTOR) WBC 7.1 3.8 - 9.9 K/cumm Hgb 7.3(L) 11.9 - 15.5 g/dL [facility] Hct 24.5(L) 35.6 - 45.5 % [facility] Plt 285 150 - 400 K/cumm [facility] MPV 11.3 9.1 - 12.3 fL [facility] RBC 2.54(L) 3.90 - 5.20 M/cumm [facility] MCV 96.5(H) 81.3 - 96.4 fL [facility] MCH 28.7 27.1 - 33.3 pg [facility] MCHC 29.8(L) 32.3 - 35.7 g/dL [facility] RDW CV 16.5(H) 11.1 - 14.9 % [facility] RDW SD 57.2(H) 35.7 - 48.1 fL [facility] NRBC abs 0.00 0.00 - 0.01 K/cumm [facility] Blood 09/28/2024 7:09 AM TELEVISION PROGRAM DIRECTOR 09/28/2024 7:45 AM TELEVISION PROGRAM DIRECTOR Arnulfo Jordan MD LAB BLOOD ORDERABLES Final Result [facility] [address] Department [place] [address] * (ABNORMAL) Comprehensive metabolic panel (09/28/2024 7:09 AM TELEVISION PROGRAM DIRECTOR) Sodium 142 135 - 145 mmol/L Potassium, pl 3.3 3.3 - 4.9 mmol/L [facility] Chloride 109 97 - 110 mmol/L [facility] CO2 21(L) 22 - 32 mmol/L [facility] Anion gap 12 2 - 15 mmol/L [facility] BUN 24 6 - 25 mg/dL [facility] Creatinine 1.15(H) 0.60 - 1.10 mg/dL [facility] Glucose 111 70 - 199 mg/dL [facility] Comment: Interpretive Data Fasting glucose >/= 126 [...] 2022. Calcium 8.1(L) 8.5 - 10.3 mg/dL [facility] Bilirubin, total 0.2 0.1 - 1.2 mg/dL [facility] Protein, pl 6.3(L) 6.5 - 8.5 g/dL [facility] Albumin 1.9(L) 3.5 - 5.0 g/dL [facility] Alk phos 163(H) 40 - 130 Units/L [facility] ALT 10 7 - 45 Units/L [facility] AST 28 10 - 45 Units/L [facility] Blood 09/28/2024 7:09 AM TELEVISION PROGRAM DIRECTOR 09/28/2024 7:45 AM TELEVISION PROGRAM DIRECTOR Arnulfo Jordan MD LAB BLOOD ORDERABLES Final Result [facility] [address] [facility] [place] [address] * POCT glucose (09/28/2024 5:42 AM TELEVISION PROGRAM DIRECTOR) Glucose, POC 123 70 - 199 mg/dL Comment: For Glucose values <35 mg/dl when Hematocrit is >60 mg/dl,the test may not accurately detect significant hypoglycemia,and testing in the Laboratory should be considered if clinically indicated. Blood 09/28/2024 5:42 AM TELEVISION PROGRAM DIRECTOR 09/28/2024 5:42 AM TELEVISION PROGRAM DIRECTOR Arnulfo Jordan MD LAB POCT ORDERABLES - DEVIC E Final Result Performing Organization Address [facility] de Phone Number [facility] [address] [facility] [place] [address] * POCT glucose (09/28/2024 1:31 AM TELEVISION PROGRAM DIRECTOR) Glucose, POC 125 70 - 199 mg/dL Comment: For Glucose values <35 mg/dl when Hematocrit is >60 mg/dl,the test may not accurately detect significant hypoglycemia,and testing in the Laboratory should be considered if clinically indicated. Blood 09/28/2024 1:31 AM TELEVISION PROGRAM DIRECTOR 09/28/2024 1:31 AM TELEVISION PROGRAM DIRECTOR Arnulfo Jordan MD LAB POCT ORDERABLES - DEVIC E Final Result Performing Organization Address [facility] de Phone Number [facility] [address] Department [place] [address] * POCT glucose (09/27/2024 9:14 PM TELEVISION PROGRAM DIRECTOR) Glucose, POC 136 70 - 199 mg/dL Comment: For Glucose values <35 mg/dl when Hematocrit is >60 mg/dl,the test may not accurately detect significant hypoglycemia,and testing in the Laboratory should be considered if clinically indicated. Blood 09/27/2024 9:14 PM TELEVISION PROGRAM DIRECTOR 09/27/2024 9:14 PM TELEVISION PROGRAM DIRECTOR Arnulfo Jordan MD LAB POCT ORDERABLES - DEVIC E Final Result Performing Organization Address [facility] de Phone Number [facility] [address] [place] [address] * POCT glucose (09/27/2024 5:25 PM TELEVISION PROGRAM DIRECTOR) Glucose, POC 112 70 - 199 mg/dL Comment: For Glucose values <35 mg/dl when Hematocrit is >60 mg/dl,the test may not accurately detect significant hypoglycemia,and testing in the Laboratory should be considered if clinically indicated. Blood 09/27/2024 5:25 PM TELEVISION PROGRAM DIRECTOR 09/27/2024 5:25 PM TELEVISION PROGRAM DIRECTOR Arnulfo Jordan MD LAB POCT ORDERABLES - DEVIC E Final Result Performing Organization Address [facility] de Phone Number [facility] [address] [facility] [place] [address] * POCT glucose (09/27/2024 3:13 PM TELEVISION PROGRAM DIRECTOR) Glucose, POC 101 70 - 199 mg/dL Comment: For Glucose values <35 mg/dl when Hematocrit is >60 mg/dl,the test may not accurately detect significant hypoglycemia,and testing in the Laboratory should be considered if clinically indicated. Blood 09/27/2024 3:13 PM TELEVISION PROGRAM DIRECTOR 09/27/2024 3:13 PM TELEVISION PROGRAM DIRECTOR Arnulfo Jordan MD LAB POCT ORDERABLES - DEVIC E Final Result Performing Organization Address [facility] de Phone Number [facility] [address] [place] [address] * FL Modified Barium Swallow W Video (09/27/2024 2:20 PM TELEVISION PROGRAM DIRECTOR) Anatomical Region Laterality Modality Head and Neck N/A Radio Fluoroscop y 09/27/2024 2:33 PM TELEVISION PROGRAM DIRECTOR Impressions 09/27/2024 3:03 PM TELEVISION PROGRAM DIRECTOR 1. There is flash laryngeal penetration with [...] Zion Rodriguez M.D. Narrative 09/27/2024 3:03 PM TELEVISION PROGRAM DIRECTOR EXAMINATION: MODIFIED BARIUM SWALLOW 09/27/2024 HISTORY: Dysphagia. [...] Result * POCT glucose (09/27/2024 10:05 AM TELEVISION PROGRAM DIRECTOR) [facility] Glucose, POC 89 70 - 199 mg/dL Comment: For Glucose values <35 mg/dl when Hematocrit is >60 mg/dl,the test may not accurately detect significant hypoglycemia,and testing in the Laboratory should be considered if clinically indicated. Blood 09/27/2024 10:0 5 AM TELEVISION PROGRAM DIRECTOR 09/27/2024 10:05 AM TELEVISION PROGRAM DIRECTOR Result [facility] Arnulfo Jordan MD LAB POCT ORDERABLES - DEVIC E Final Result Performing Organization Address City/[facility]/ZIP Co de Phone Number [facility] [address] [place] [address] * Iron profile - Add on lab test (09/27/2024 8:43 AM TELEVISION PROGRAM DIRECTOR) [facility] Acceptable Yes Blood 09/27/2024 8:43 AM TELEVISION PROGRAM DIRECTOR 09/27/2024 8:43 AM TELEVISION PROGRAM DIRECTOR Narrative [facility] - 09/27/2024 8:44 AM TELEVISION PROGRAM DIRECTOR Name of Test->Iron profile Result [facility] Arnulfo Jordan MD LAB BLOOD ORDERABLES Final Result [facility] [address] [place] [address] * POCT glucose (09/27/2024 5:57 AM TELEVISION PROGRAM DIRECTOR) [facility] Glucose, POC 74 70 - 199 mg/dL Comment: For Glucose values <35 mg/dl when Hematocrit is >60 mg/dl,the test may not accurately detect significant hypoglycemia,and testing in the Laboratory should be considered if clinically indicated. Blood 09/27/2024 5:57 AM TELEVISION PROGRAM DIRECTOR 09/27/2024 5:57 AM TELEVISION PROGRAM DIRECTOR Arnulfo Jordan MD LAB POCT ORDERABLES - DEVIC E Final Result [facility] [address] [place] [address] * (ABNORMAL) eGFR (09/27/2024 5:42 AM TELEVISION PROGRAM DIRECTOR) [facility] eGFR 58(L) >=60 mL/min/1. 73 m2 Comment: [...] last reviewed 2021. Blood 09/27/2024 5:42 AM TELEVISION PROGRAM DIRECTOR 09/27/2024 5:55 AM TELEVISION PROGRAM DIRECTOR us Arnulfo Jordan MD LAB BLOOD ORDERABLES Final Result [facility] [address] [place] [address] * (ABNORMAL) Differential, auto (09/27/2024 5:42 AM TELEVISION PROGRAM DIRECTOR) Neutrophil abs 7.1(H) 1.5 - 6.5 K/cumm Imm gran abs 0.0 0.0 - 0.1 K/cumm [facility] Lymphocyte abs 0.7(L) 0.8 - 3.3 K/cumm [facility] Monocyte abs 0.6 0.2 - 0.8 K/cumm [facility] Eosinophil abs 0.2 0.0 - 0.5 K/cumm [facility] Basophil abs 0.1 0.0 - 0.1 K/cumm [facility] Neutrophil pct 80.9 % [facility] Comment: Interpretive Data Percent cell count reference ranges are not reported, since discordance with absolute values may lead to misinterpretation of CBC data. Current Interpretive Data was last revised on 2017. Imm gran pct 0.5 % [facility] Comment: Interpretive Data Percent cell count reference ranges are not reported, since discordance with absolute values may lead to misinterpretation of CBC data. Current Interpretive Data was last revised on 2017. Lymphocyte pct 8.4 % [facility] Comment: Interpretive Data Percent cell count reference ranges are not reported, since discordance with absolute values may lead to misinterpretation of CBC data. Current Interpretive Data was last revised on 2017. Monocyte pct 6.6 % [facility] Comment: Interpretive Data Percent cell count reference ranges are not reported, since discordance with absolute values may lead to misinterpretation of CBC data. Current Interpretive Data was last revised on 2017. Eosinophil pct 2.6 % [facility] Comment: Interpretive Data Percent cell count reference ranges are not reported, since discordance with absolute values may lead to misinterpretation of CBC data. Current Interpretive Data was last revised on 2017. Basophil pct 1.0 % [facility] Comment: Interpretive Data Percent cell count reference ranges are not reported, since discordance with absolute values may lead to misinterpretation of CBC data. Current Interpretive Data was last revised on 2017. Blood 09/27/2024 5:42 AM TELEVISION PROGRAM DIRECTOR 09/27/2024 5:55 AM TELEVISION PROGRAM DIRECTOR Arnulfo Jordan MD LAB BLOOD ORDERABLES Final Result Performing Organization Address City/[facility]/ZIP Co de Phone Number [facility] [address] [facility] [place] [address] * (ABNORMAL) Iron profile w/ IBC (09/27/2024 5:42 AM TELEVISION PROGRAM DIRECTOR) [facility] Iron 25(L) 35 - 145 mcg/dL TIBC 156(L) 250 - 400 mcg/dL [facility] Transferrin saturation 16(L) 20 - 50 % [facility] Blood 09/27/2024 5:42 AM TELEVISION PROGRAM DIRECTOR 09/27/2024 5:55 AM TELEVISION PROGRAM DIRECTOR Arnulfo Jordan MD LAB BLOOD ORDERABLES Final Result Performing Organization Address [facility] Co de Phone Number [facility] [address] Department [place] [address] * (ABNORMAL) CBC with auto differential (09/27/2024 5:42 AM TELEVISION PROGRAM DIRECTOR) [facility] WBC 8.8 3.8 - 9.9 K/cumm Hgb 7.2(L) 11.9 - 15.5 g/dL [facility] Hct 24.6(L) 35.6 - 45.5 % [facility] Plt 280 150 - 400 K/cumm [facility] MPV 11.4 9.1 - 12.3 fL [facility] RBC 2.60(L) 3.90 - 5.20 M/cumm [facility] MCV 94.6 81.3 - 96.4 fL [facility] MCH 27.7 27.1 - 33.3 pg [facility] MCHC 29.3(L) 32.3 - 35.7 g/dL [facility] RDW CV 16.1(H) 11.1 - 14.9 % [facility] RDW SD 54.5(H) 35.7 - 48.1 fL [facility] NRBC abs 0.00 0.00 - 0.01 K/cumm [facility] Blood 09/27/2024 5:42 AM TELEVISION PROGRAM DIRECTOR 09/27/2024 5:55 AM TELEVISION PROGRAM DIRECTOR Arnulfo Jodran MD LAB BLOOD ORDERABLES Final Result [facility] [address] Department [place] [address] * (ABNORMAL) Comprehensive metabolic panel (09/27/2024 5:42 AM TELEVISION PROGRAM DIRECTOR) Sodium 143 135 - 145 mmol/L Potassium, pl 3.4 3.3 - 4.9 mmol/L [facility] Chloride 110 97 - 110 mmol/L [facility] CO2 22 22 - 32 mmol/L [facility] Anion gap 11 2 - 15 mmol/L [facility] BUN 25 6 - 25 mg/dL [facility] Creatinine 1.16(H) 0.60 - 1.10 mg/dL [facility] Glucose 77 70 - 199 mg/dL [facility] Comment: Interpretive Data Fasting glucose >/= 126 [...] 2022. Calcium 8.0(L) 8.5 - 10.3 mg/dL [facility] Bilirubin, total 0.3 0.1 - 1.2 mg/dL [facility] Protein, pl 6.0(L) 6.5 - 8.5 g/dL [facility] Albumin 2.1(L) 3.5 - 5.0 g/dL [facility] Alk phos 152(H) 40 - 130 Units/L [facility] ALT 12 7 - 45 Units/L [facility] AST 31 10 - 45 Units/L [facility] Blood 09/27/2024 5:42 AM TELEVISION PROGRAM DIRECTOR 09/27/2024 5:55 AM TELEVISION PROGRAM DIRECTOR Arnulfo Jordan MD LAB BLOOD ORDERABLES Final Result Performing Organization Address [facility] Co de Phone Number [facility] [address] [facility] [place] [address] * POCT glucose (09/27/2024 2:14 AM TELEVISION PROGRAM DIRECTOR) Glucose, POC 78 70 - 199 mg/dL Comment: For Glucose values <35 mg/dl when Hematocrit is >60 mg/dl,the test may not accurately detect significant hypoglycemia,and testing in the Laboratory should be considered if clinically indicated. Blood 09/27/2024 2:14 AM TELEVISION PROGRAM DIRECTOR 09/27/2024 2:14 AM TELEVISION PROGRAM DIRECTOR Arnulfo Jordan MD LAB POCT ORDERABLES - DEVIC E Final Result Performing Organization Address [facility] de Phone Number [facility] [address] [facility] [place] [address] * POCT glucose (09/26/2024 9:41 PM TELEVISION PROGRAM DIRECTOR) Glucose, POC 79 70 - 199 mg/dL Comment: For Glucose values <35 mg/dl when Hematocrit is >60 mg/dl,the test may not accurately detect significant hypoglycemia,and testing in the Laboratory should be considered if clinically indicated. Blood 09/26/2024 9:41 PM TELEVISION PROGRAM DIRECTOR 09/26/2024 9:41 PM TELEVISION PROGRAM DIRECTOR us Arnulfo Jordan MD LAB POCT ORDERABLES - DEVIC E Final Result Performing Organization Address [facility] Co de Phone Number [facility] [address] [facility] [place] [address] * POCT glucose (09/26/2024 6:18 PM TELEVISION PROGRAM DIRECTOR) Glucose, POC 91 70 - 199 mg/dL Comment: For Glucose values <35 mg/dl when Hematocrit is >60 mg/dl,the test may not accurately detect significant hypoglycemia,and testing in the Laboratory should be considered if clinically indicated. Blood 09/26/2024 6:18 PM TELEVISION PROGRAM DIRECTOR 09/26/2024 6:18 PM TELEVISION PROGRAM DIRECTOR Arnulfo Jordan MD LAB POCT ORDERABLES - DEVIC E Final Result Performing Organization Address [facility] Co de Phone Number [facility] [address] Department [place] [address] * POCT glucose (09/26/2024 2:51 PM TELEVISION PROGRAM DIRECTOR) [facility] Glucose, POC 89 70 - 199 mg/dL Comment: For Glucose values <35 mg/dl when Hematocrit is >60 mg/dl,the test may not accurately detect significant hypoglycemia,and testing in the Laboratory should be considered if clinically indicated. Blood 09/26/2024 2:51 PM TELEVISION PROGRAM DIRECTOR 09/26/2024 2:51 PM TELEVISION PROGRAM DIRECTOR Arnulfo Jordan MD LAB POCT ORDERABLES - DEVIC E Final Result Performing Organization Address [facility] Co de Phone Number [facility] [address] Department [place] [address] * (ABNORMAL) CBC with auto differential (09/26/2024 2:03 PM TELEVISION PROGRAM DIRECTOR) [facility] WBC 8.6 3.8 - 9.9 K/cumm Hgb 7.3(L) 11.9 - 15.5 g/dL [facility] Hct 24.2(L) 35.6 - 45.5 % [facility] Plt 308 150 - 400 K/cumm [facility] MPV 11.5 9.1 - 12.3 fL [facility] RBC 2.52(L) 3.90 - 5.20 M/cumm [facility] MCV 96.0 81.3 - 96.4 fL [facility] MCH 29.0 27.1 - 33.3 pg [facility] MCHC 30.2(L) 32.3 - 35.7 g/dL [facility] RDW CV 16.0(H) 11.1 - 14.9 % [facility] RDW SD 55.1(H) 35.7 - 48.1 fL [facility] NRBC abs 0.00 0.00 - 0.01 K/cumm [facility] Blood 09/26/2024 2:03 PM TELEVISION PROGRAM DIRECTOR 09/26/2024 2:11 PM TELEVISION PROGRAM DIRECTOR Arnulfo oJrdan MD LAB BLOOD ORDERABLES Final Result [facility] [address] Department [place] [address] * (ABNORMAL) eGFR (09/26/2024 1:25 PM TELEVISION PROGRAM DIRECTOR) eGFR 57(L) >=60 mL/min/1. 73 m2 Comment: [...] last reviewed 2021. Blood 09/26/2024 1:25 PM TELEVISION PROGRAM DIRECTOR 09/26/2024 1:33 PM TELEVISION PROGRAM DIRECTOR us Arnulfo Jordan MD LAB BLOOD ORDERABLES Final Result [facility] [address] Department [place] [address] * Differential, auto (09/26/2024 1:25 PM TELEVISION PROGRAM DIRECTOR) Neutrophil abs See Comment 1.5 - 6.5 Comment:CBC to be recollecte d due to possible falsely low Hgb on09/26/2024 13:53:40 TELEVISION PROGRAM DIRECTOR [id number] Imm gran abs See Comment 0.0 - 0.1 [facility] Comment:CBC to be recollecte d due to possible falsely low Hgb on09/26/2024 13:53:40 TELEVISION PROGRAM DIRECTOR [email or web address] Lymphocyte abs See Comment 0.8 - 3.3 [facility] Comment:CBC to be recollecte d due to possible falsely low Hgb on09/26/2024 13:53:40 TELEVISION PROGRAM DIRECTOR [email or web address] Monocyte abs See Comment 0.2 - 0.8 [facility] Comment:CBC to be recollecte d due to possible falsely low Hgb on09/26/2024 13:53:40 TELEVISION PROGRAM DIRECTOR [email or web address] Eosinophil abs See Comment 0.0 - 0.5 [facility] Comment:CBC to be recollecte d due to possible falsely low Hgb on09/26/2024 13:53:40 TELEVISION PROGRAM DIRECTOR [email or web address] Basophil abs See Comment 0.0 - 0.1 [facility] Comment:CBC to be recollecte d due to possible falsely low Hgb on09/26/2024 13:53:40 TELEVISION PROGRAM DIRECTOR [email or web address] Neutrophil pct See Comment [facility] Comment: CBC to be recollected due to possible falsely low Hgb on09/26/2024 13:53:40 TELEVISION PROGRAM DIRECTOR [id number] Interpretive Data Percent cell count reference ranges are not reported, since discordance with absolute values may lead to misinterpretation of CBC data. Current Interpretive Data was last revised on 2017. Imm gran pct See Comment [facility] Comment: CBC to be recollected due to possible falsely low Hgb on09/26/2024 13:53:40 TELEVISION PROGRAM DIRECTOR [email or web address] Interpretive Data Percent cell count reference ranges are not reported, since discordance with absolute values may lead to misinterpretation of CBC data. Current Interpretive Data was last revised on 2017. Lymphocyte pct See Comment [facility] Comment: CBC to be recollected due to possible falsely low Hgb on09/26/2024 13:53:40 TELEVISION PROGRAM DIRECTOR [id number] Interpretive Data Percent cell count reference ranges are not reported, since discordance with absolute values may lead to misinterpretation of CBC data. Current Interpretive Data was last revised on 2017. Monocyte pct See Comment [facility] Comment: CBC to be recollected due to possible falsely low Hgb on09/26/2024 13:53:40 TELEVISION PROGRAM DIRECTOR [id number] Interpretive Data Percent cell count reference ranges are not reported, since discordance with absolute values may lead to misinterpretation of CBC data. Current Interpretive Data was last revised on 2017. Eosinophil pct See Comment [facility] Comment: CBC to be recollected due to possible falsely low Hgb on09/26/2024 13:53:40 TELEVISION PROGRAM DIRECTOR [id number] Interpretive Data Percent cell count reference ranges are not reported, since discordance with absolute values may lead to misinterpretation of CBC data. Current Interpretive Data was last revised on 2017. Basophil pct See Comment [facility] Comment: CBC to be recollected due to possible falsely low Hgb on09/26/2024 13:53:40 TELEVISION PROGRAM DIRECTOR [id number] Interpretive Data Percent cell count reference ranges are not reported, since discordance with absolute values may lead to misinterpretation of CBC data. Current Interpretive Data was last revised on 2017. Blood 09/26/2024 1:25 PM TELEVISION PROGRAM DIRECTOR 09/26/2024 1:33 PM TELEVISION PROGRAM DIRECTOR us Arnulfo Jordan MD LAB BLOOD ORDERABLES Edited Result - Final [facility] [address] Department [place] [address] * CBC with auto differential (09/26/2024 1:25 PM TELEVISION PROGRAM DIRECTOR) WBC See Comment 3.8 - 9.9 Comment: Test results inaccurately filed to this patient's record. Test will be credited. CBC to be recollected due to possible falsely low Hgb on09/26/2024 13:53:40 TELEVISION PROGRAM DIRECTOR [id number] Hgb See Comment 11.9 - 15.5 [facility] Comment: Test results inaccurately filed to this patient's record. Test will be credited. CBC to be recollected due to possible falsely low Hgb on09/26/2024 13:53:40 TELEVISION PROGRAM DIRECTOR [id number] Hct See Comment 35.6 - 45.5 [facility] Comment: Test results inaccurately filed to this patient's record. Test will be credited. CBC to be recollected due to possible falsely low Hgb on09/26/2024 13:53:40 TELEVISION PROGRAM DIRECTOR [id number] Plt See Comment 150 - 400 K/cumm [facility] Comment: Test results inaccurately filed to this patient's record. Test will be credited. CBC to be recollected due to possible falsely low Hgb on09/26/2024 13:53:40 TELEVISION PROGRAM DIRECTOR [id number] MPV See Comment 9.1 - 12.3 [facility] Comment: Test results inaccurately filed to this patient's record. Test will be credited. CBC to be recollected due to possible falsely low Hgb on09/26/2024 13:53:40 TELEVISION PROGRAM DIRECTOR [id number] RBC See Comment 3.90 - 5.20 [facility] Comment: Test results inaccurately filed to this patient's record. Test will be credited. CBC to be recollected due to possible falsely low Hgb on09/26/2024 13:53:40 TELEVISION PROGRAM DIRECTOR [id number] MCV See Comment 81.3 - 96.4 [facility] Comment: Test results inaccurately filed to this patient's record. Test will be credited. CBC to be recollected due to possible falsely low Hgb on09/26/2024 13:53:40 TELEVISION PROGRAM DIRECTOR [id number] MCH See Comment 27.1 - 33.3 [facility] Comment: Test results inaccurately filed to this patient's record. Test will be credited. CBC to be recollected due to possible falsely low Hgb on09/26/2024 13:53:40 TELEVISION PROGRAM DIRECTOR [id number] MCHC See Comment 32.3 - 35.7 [facility] Comment: Test results inaccurately filed to this patient's record. Test will be credited. CBC to be recollected due to possible falsely low Hgb on09/26/2024 13:53:40 TELEVISION PROGRAM DIRECTOR [id number] RDW CV See Comment 11.1 - 14.9 [facility] Comment: Test results inaccurately filed to this patient's record. Test will be credited. CBC to be recollected due to possible falsely low Hgb on09/26/2024 13:53:40 TELEVISION PROGRAM DIRECTOR [id number] RDW SD See Comment 35.7 - 48.1 [facility] Comment: Test results inaccurately filed to this patient's record. Test will be credited. CBC to be recollected due to possible falsely low Hgb on09/26/2024 13:53:40 TELEVISION PROGRAM DIRECTOR [id number] NRBC abs See Comment 0.00 - 0.01 K/cumm [facility] Comment:CBC to be recollecte d due to possible falsely low Hgb on09/26/2024 13:53:40 TELEVISION PROGRAM DIRECTOR [id number] Blood 09/26/2024 1:25 PM TELEVISION PROGRAM DIRECTOR 09/26/2024 1:33 PM TELEVISION PROGRAM DIRECTOR Arnulfo Jordan MD LAB BLOOD ORDERABLES Edited Result - Final [facility] [address] Department [place] [address] * (ABNORMAL) Comprehensive metabolic panel (09/26/2024 1:25 PM TELEVISION PROGRAM DIRECTOR) Sodium 142 135 - 145 mmol/L Potassium, pl 3.2(L) 3.3 - 4.9 mmol/L [facility] Chloride 112(H) 97 - 110 mmol/L [facility] CO2 21(L) 22 - 32 mmol/L [facility] Anion gap 9 2 - 15 mmol/L [facility] BUN 23 6 - 25 mg/dL [facility] Creatinine 1.18(H) 0.60 - 1.10 mg/dL [facility] Glucose 79 70 - 199 mg/dL [facility] Comment: Interpretive Data Fasting glucose >/= 126 [...] 2022. Calcium 7.4(L) 8.5 - 10.3 mg/dL [facility] Bilirubin, total 0.2 0.1 - 1.2 mg/dL [facility] Protein, pl 5.6(L) 6.5 - 8.5 g/dL [facility] Albumin 1.8(L) 3.5 - 5.0 g/dL [facility] Alk phos 135(H) 40 - 130 Units/L [facility] ALT 13 7 - 45 Units/L [facility] AST 32 10 - 45 Units/L [facility] Blood 09/26/2024 1:25 PM TELEVISION PROGRAM DIRECTOR 09/26/2024 1:33 PM TELEVISION PROGRAM DIRECTOR Arnulfo Jordan MD LAB BLOOD ORDERABLES Final Result [facility] [address] Department [place] [address] * POCT glucose (09/26/2024 10:10 AM TELEVISION PROGRAM DIRECTOR) [facility] Glucose, POC 100 70 - 199 mg/dL Comment: For Glucose values <35 mg/dl when Hematocrit is >60 mg/dl,the test may not accurately detect significant hypoglycemia,and testing in the Laboratory should be considered if clinically indicated. Blood 09/26/2024 10:1 0 AM TELEVISION PROGRAM DIRECTOR 09/26/2024 10:10 AM TELEVISION PROGRAM DIRECTOR us Arnulfo Jordan MD LAB POCT ORDERABLES - DEVIC E Final Result Performing Organization Address [facility] Co de Phone Number [facility] [address] Department [place] [address] * POCT glucose (09/26/2024 5:04 AM TELEVISION PROGRAM DIRECTOR) [facility] Glucose, POC 94 70 - 199 mg/dL Comment: For Glucose values <35 mg/dl when Hematocrit is >60 mg/dl,the test may not accurately detect significant hypoglycemia,and testing in the Laboratory should be considered if clinically indicated. Blood 09/26/2024 5:04 AM TELEVISION PROGRAM DIRECTOR 09/26/2024 5:04 AM TELEVISION PROGRAM DIRECTOR us Arnulfo Jordan MD LAB POCT ORDERABLES - DEVIC E Final Result Performing Organization Address [facility] de Phone Number [facility] [address] [place] [address] * C. difficile testing Stool (09/26/2024 2:18 AM TELEVISION PROGRAM DIRECTOR) [facility] Negative Toxin Result Negative Negative [facility] C. diff result Negative, free toxin Negative, free toxin [facility] C. diff interp Negative for toxigenic Clostridioides (Clostridium) difficile. Analysis was performed using a glutamate dehydrogenase antigen detection assay combined with a C. difficile toxin detection assay. [facility] Stool 09/26/2024 2:18 AM TELEVISION PROGRAM DIRECTOR 09/26/2024 2:41 AM TELEVISION PROGRAM DIRECTOR us Arnulfo Jordan MD LAB MICROBIOLOGY - GENERAL ORDERABLES Final Result Performing Organization Address [facility] Co de Phone Number [facility] [address] [place] [address] * POCT glucose (09/26/2024 12:01 AM TELEVISION PROGRAM DIRECTOR) Glucose, POC 108 70 - 199 mg/dL Comment: For Glucose values <35 mg/dl when Hematocrit is >60 mg/dl,the test may not accurately detect significant hypoglycemia,and testing in the Laboratory should be considered if clinically indicated. Blood 09/26/2024 12:0 1 AM TELEVISION PROGRAM DIRECTOR 09/26/2024 12:01 AM TELEVISION PROGRAM DIRECTOR Result [facility] Arnulfo Jordan MD LAB POCT ORDERABLES - DEVIC E Final Result Performing Organization Address [facility] de Phone Number [facility] [address] [facility] [place] [address] * POCT glucose (09/25/2024 8:35 PM TELEVISION PROGRAM DIRECTOR) Glucose, POC 92 70 - 199 mg/dL Comment: For Glucose values <35 mg/dl when Hematocrit is >60 mg/dl,the test may not accurately detect significant hypoglycemia,and testing in the Laboratory should be considered if clinically indicated. Blood 09/25/2024 8:35 PM TELEVISION PROGRAM DIRECTOR 09/25/2024 8:35 PM TELEVISION PROGRAM DIRECTOR Result [facility] Arnulfo Jordan MD LAB POCT ORDERABLES - DEVIC E Final Result Performing Organization Address [facility] Co de Phone Number [facility] [address] [facility] [place] [address] * POCT glucose (09/25/2024 4:36 PM TELEVISION PROGRAM DIRECTOR) Glucose, POC 97 70 - 199 mg/dL Comment: For Glucose values <35 mg/dl when Hematocrit is >60 mg/dl,the test may not accurately detect significant hypoglycemia,and testing in the Laboratory should be considered if clinically indicated. Blood 09/25/2024 4:36 PM TELEVISION PROGRAM DIRECTOR 09/25/2024 4:36 PM TELEVISION PROGRAM DIRECTOR Result [facility] Arnulfo Jordan MD LAB POCT ORDERABLES - DEVIC E Final Result Performing Organization Address City/[facility]/ZIP Co de Phone Number [facility] [address] Department [place] [address] * POCT glucose (09/25/2024 11:55 AM TELEVISION PROGRAM DIRECTOR) Glucose, POC 87 70 - 199 mg/dL Comment: For Glucose values <35 mg/dl when Hematocrit is >60 mg/dl,the test may not accurately detect significant hypoglycemia,and testing in the Laboratory should be considered if clinically indicated. Blood 09/25/2024 11:5 5 AM TELEVISION PROGRAM DIRECTOR 09/25/2024 11:55 AM TELEVISION PROGRAM DIRECTOR Arnulfo Jordan MD LAB POCT ORDERABLES - DEVIC E Final Result Performing Organization Address [facility] Co de Phone Number [facility] [address] Department [place] [address] * (ABNORMAL) eGFR (09/25/2024 8:32 AM TELEVISION PROGRAM DIRECTOR) Pathologist [facility] eGFR 53(L) >=60 mL/min/1. 73 m2 [...] last reviewed 2021. Blood 09/25/2024 8:32 AM TELEVISION PROGRAM DIRECTOR 09/25/2024 8:46 AM TELEVISION PROGRAM DIRECTOR us Arnulfo Jordan MD LAB BLOOD ORDERABLES Final Result [facility] [address] Department [place] [address] * (ABNORMAL) Differential, auto (09/25/2024 8:32 AM TELEVISION PROGRAM DIRECTOR) Neutrophil abs 7.2(H) 1.5 - 6.5 K/cumm Imm gran abs 0.1 0.0 - 0.1 K/cumm [facility] Lymphocyte abs 1.1 0.8 - 3.3 K/cumm [facility] Monocyte abs 0.7 0.2 - 0.8 K/cumm [facility] Eosinophil abs 0.2 0.0 - 0.5 K/cumm [facility] Basophil abs 0.1 0.0 - 0.1 K/cumm [facility] Neutrophil pct 78.5 % [facility] Comment: Interpretive Data Percent cell count reference ranges are not reported, since discordance with absolute values may lead to misinterpretation of CBC data. Current Interpretive Data was last revised on 2017. Imm gran pct 0.5 % [facility] Comment: Interpretive Data Percent cell count reference ranges are not reported, since discordance with absolute values may lead to misinterpretation of CBC data. Current Interpretive Data was last revised on 2017. Lymphocyte pct 11.6 % [facility] Comment: Interpretive Data Percent cell count reference ranges are not reported, since discordance with absolute values may lead to misinterpretation of CBC data. Current Interpretive Data was last revised on 2017. Monocyte pct 7.3 % [facility] Comment: Interpretive Data Percent cell count reference ranges are not reported, since discordance with absolute values may lead to misinterpretation of CBC data. Current Interpretive Data was last revised on 2017. Eosinophil pct 1.6 % [facility] Comment: Interpretive Data Percent cell count reference ranges are not reported, since discordance with absolute values may lead to misinterpretation of CBC data. Current Interpretive Data was last revised on 2017. Basophil pct 0.5 % [facility] Comment: Interpretive Data Percent cell count reference ranges are not reported, since discordance with absolute values may lead to misinterpretation of CBC data. Current Interpretive Data was last revised on 2017. Blood 09/25/2024 8:32 AM TELEVISION PROGRAM DIRECTOR 09/25/2024 8:46 AM TELEVISION PROGRAM DIRECTOR Arnulfo Jordan MD LAB BLOOD ORDERABLES Final Result Performing Organization Address [facility] Co de Phone Number [facility] [address] Department [place] [address] * POCT glucose (09/25/2024 8:32 AM TELEVISION PROGRAM DIRECTOR) [facility] Glucose, POC 89 70 - 199 mg/dL Comment: For Glucose values <35 mg/dl when Hematocrit is >60 mg/dl,the test may not accurately detect significant hypoglycemia,and testing in the Laboratory should be considered if clinically indicated. Blood 09/25/2024 8:32 AM TELEVISION PROGRAM DIRECTOR 09/25/2024 8:32 AM TELEVISION PROGRAM DIRECTOR Arnulfo Jordan MD LAB POCT ORDERABLES - DEVIC E Final Result Performing Organization Address [facility] Co de Phone Number [facility] [address] Department [place] [address] * (ABNORMAL) CBC with auto differential (09/25/2024 8:32 AM TELEVISION PROGRAM DIRECTOR) [facility] WBC 9.2 3.8 - 9.9 K/cumm Hgb 7.2(L) 11.9 - 15.5 g/dL [facility] Hct 24.6(L) 35.6 - 45.5 % [facility] Plt 259 150 - 400 K/cumm [facility] MPV 11.7 9.1 - 12.3 fL [facility] RBC 2.49(L) 3.90 - 5.20 M/cumm [facility] MCV 98.8(H) 81.3 - 96.4 fL [facility] MCH 28.9 27.1 - 33.3 pg [facility] MCHC 29.3(L) 32.3 - 35.7 g/dL [facility] RDW CV 15.8(H) 11.1 - 14.9 % [facility] RDW SD 55.9(H) 35.7 - 48.1 fL [facility] NRBC abs 0.00 0.00 - 0.01 K/cumm [facility] Blood 09/25/2024 8:32 AM TELEVISION PROGRAM DIRECTOR 09/25/2024 8:46 AM TELEVISION PROGRAM DIRECTOR Arnulfo Jordan MD LAB BLOOD ORDERABLES Final Result [facility] [address] Department [place] [address] * (ABNORMAL) Comprehensive metabolic panel (09/25/2024 8:32 AM TELEVISION PROGRAM DIRECTOR) Sodium 143 135 - 145 mmol/L Potassium, pl 3.2(L) 3.3 - 4.9 mmol/L [facility] Chloride 111(H) 97 - 110 mmol/L [facility] CO2 20(L) 22 - 32 mmol/L [facility] Anion gap 12 2 - 15 mmol/L [facility] BUN 26(H) 6 - 25 mg/dL [facility] Creatinine 1.24(H) 0.60 - 1.10 mg/dL [facility] Glucose 85 70 - 199 mg/dL [facility] Comment: Interpretive Data Fasting glucose >/= 126 [...] 2022. Calcium 7.7(L) 8.5 - 10.3 mg/dL [facility] Bilirubin, total 0.2 0.1 - 1.2 mg/dL [facility] Protein, pl 5.8(L) 6.5 - 8.5 g/dL [facility] Albumin 1.9(L) 3.5 - 5.0 g/dL [facility] Alk phos 137(H) 40 - 130 Units/L [facility] ALT 13 7 - 45 Units/L [facility] AST 28 10 - 45 Units/L [facility] Blood 09/25/2024 8:32 AM TELEVISION PROGRAM DIRECTOR 09/25/2024 8:46 AM TELEVISION PROGRAM DIRECTOR Arnlufo Jordan MD LAB BLOOD ORDERABLES Final Result Performing Organization Address [facility] Co de Phone Number [facility] [address] Department [place] [address] * POCT glucose (09/25/2024 4:49 AM TELEVISION PROGRAM DIRECTOR) Glucose, POC 86 70 - 199 mg/dL Comment: For Glucose values <35 mg/dl when Hematocrit is >60 mg/dl,the test may not accurately detect significant hypoglycemia,and testing in the Laboratory should be considered if clinically indicated. Blood 09/25/2024 4:49 AM TELEVISION PROGRAM DIRECTOR 09/25/2024 4:49 AM TELEVISION PROGRAM DIRECTOR Arnulfo Jordan MD LAB POCT ORDERABLES - DEVIC E Final Result Performing Organization Address City/[facility]/ZIP Co de Phone Number [facility] [address] Department [place] [address] * POCT glucose (09/25/2024 12:48 AM TELEVISION PROGRAM DIRECTOR) Glucose, POC 83 70 - 199 mg/dL Comment: For Glucose values <35 mg/dl when Hematocrit is >60 mg/dl,the test may not accurately detect significant hypoglycemia,and testing in the Laboratory should be considered if clinically indicated. Blood 09/25/2024 12:4 8 AM TELEVISION PROGRAM DIRECTOR 09/25/2024 12:48 AM TELEVISION PROGRAM DIRECTOR Arnulfo Jordan MD LAB POCT ORDERABLES - DEVIC E Final Result Performing Organization Address [facility] de Phone Number [facility] [address] [facility] [place] [address] * POCT glucose (09/24/2024 8:56 PM TELEVISION PROGRAM DIRECTOR) Glucose, POC 83 70 - 199 mg/dL Comment: For Glucose values <35 mg/dl when Hematocrit is >60 mg/dl,the test may not accurately detect significant hypoglycemia,and testing in the Laboratory should be considered if clinically indicated. Blood 09/24/2024 8:56 PM TELEVISION PROGRAM DIRECTOR 09/24/2024 8:56 PM TELEVISION PROGRAM DIRECTOR Result [facility] Arnulfo Jordan MD LAB POCT ORDERABLES - DEVIC E Final Result Performing Organization Address [facility] de Phone Number [facility] [address] [facility] [place] [address] * POCT glucose (09/24/2024 4:20 PM TELEVISION PROGRAM DIRECTOR) Glucose, POC 83 70 - 199 mg/dL Comment: For Glucose values <35 mg/dl when Hematocrit is >60 mg/dl,the test may not accurately detect significant hypoglycemia,and testing in the Laboratory should be considered if clinically indicated. Blood 09/24/2024 4:20 PM TELEVISION PROGRAM DIRECTOR 09/24/2024 4:20 PM TELEVISION PROGRAM DIRECTOR Result [facility] Arnulfo Jordan MD LAB POCT ORDERABLES - DEVIC E Final Result Performing Organization Address [facility] Co de Phone Number [facility] [address] [facility] [place] [address] * POCT glucose (09/24/2024 12:13 PM TELEVISION PROGRAM DIRECTOR) Glucose, POC 91 70 - 199 mg/dL Comment: For Glucose values <35 mg/dl when Hematocrit is >60 mg/dl,the test may not accurately detect significant hypoglycemia,and testing in the Laboratory should be considered if clinically indicated. Blood 09/24/2024 12:1 3 PM TELEVISION PROGRAM DIRECTOR 09/24/2024 12:13 PM TELEVISION PROGRAM DIRECTOR us Arnulfo Jordan MD LAB POCT ORDERABLES - DEVIC E Final Result [facility] [address] Department [place] [address] * XR Chest 1 View (09/24/2024 8:18 AM TELEVISION PROGRAM DIRECTOR) Anatomical Region Laterality Modality Body, Chest N/A Computed Radiogr aphy 09/24/2024 8:36 AM TELEVISION PROGRAM DIRECTOR Impressions 09/24/2024 8:36 AM TELEVISION PROGRAM DIRECTOR Patchy airspace opacities greatest in the left lung base but also projecting over the left hilum and to a lesser extent the right hilum are not substantially changed and likely representing multifocal pneumonia and/or sequela of aspiration. Trace left pleural effusion. No right pleural effusion. No pneumothorax. Heart size is stable. Electronically signed by: Nithin Gonzalez MD, PHD Narrative 09/24/2024 8:36 AM TELEVISION PROGRAM DIRECTOR EXAMINATION: XR CHEST 1 VIEW HISTORY: Shortness [...] lt * POCT glucose (09/24/2024 4:12 AM TELEVISION PROGRAM DIRECTOR) Glucose, POC 129 70 - 199 mg/dL Comment: For Glucose values <35 mg/dl when Hematocrit is >60 mg/dl,the test may not accurately detect significant hypoglycemia,and testing in the Laboratory should be considered if clinically indicated. Blood 09/24/2024 4:12 AM TELEVISION PROGRAM DIRECTOR 09/24/2024 4:12 AM TELEVISION PROGRAM DIRECTOR Arnulfo Jordan MD LAB POCT ORDERABLES - DEVIC E Final Result Performing Organization Address [facility] de Phone Number [facility] [address] [facility] [place] [address] * POCT glucose (09/24/2024 2:44 AM TELEVISION PROGRAM DIRECTOR) Glucose, POC 132 70 - 199 mg/dL Comment: For Glucose values <35 mg/dl when Hematocrit is >60 mg/dl,the test may not accurately detect significant hypoglycemia,and testing in the Laboratory should be considered if clinically indicated. Blood 09/24/2024 2:44 AM TELEVISION PROGRAM DIRECTOR 09/24/2024 2:44 AM TELEVISION PROGRAM DIRECTOR Result [facility] Arnulfo Jordan MD LAB POCT ORDERABLES - DEVIC E Final Result Performing Organization Address [facility] de Phone Number [facility] [address] [place] [address] * (ABNORMAL) POCT glucose (09/24/2024 1:06 AM TELEVISION PROGRAM DIRECTOR) Glucose, POC 59(L) 70 - 199 mg/dL Comment: For Glucose values <35 mg/dl when Hematocrit is >60 mg/dl,the test may not accurately detect significant hypoglycemia,and testing in the Laboratory should be considered if clinically indicated. Blood 09/24/2024 1:06 AM TELEVISION PROGRAM DIRECTOR 09/24/2024 1:06 AM TELEVISION PROGRAM DIRECTOR Result [facility] Arnulfo Jordan MD LAB POCT ORDERABLES - DEVIC E Final Result Performing Organization Address [facility] Co de Phone Number [facility] [address] [facility] [place] [address] * (ABNORMAL) POCT glucose (09/24/2024 12:44 AM TELEVISION PROGRAM DIRECTOR) Glucose, POC 65(L) 70 - 199 mg/dL Comment: For Glucose values <35 mg/dl when Hematocrit is >60 mg/dl,the test may not accurately detect significant hypoglycemia,and testing in the Laboratory should be considered if clinically indicated. Blood 09/24/2024 12:4 4 AM TELEVISION PROGRAM DIRECTOR 09/24/2024 12:44 AM TELEVISION PROGRAM DIRECTOR Arnulfo Jordan MD LAB POCT ORDERABLES - DEVIC E Final Result Performing Organization Address [facility] Co de Phone Number [facility] [address] [facility] [place] [address] * (ABNORMAL) POCT glucose (09/24/2024 12:22 AM TELEVISION PROGRAM DIRECTOR) Glucose, POC 68(L) 70 - 199 mg/dL Comment: For Glucose values <35 mg/dl when Hematocrit is >60 mg/dl,the test may not accurately detect significant hypoglycemia,and testing in the Laboratory should be considered if clinically indicated. Blood 09/24/2024 12:2 2 AM TELEVISION PROGRAM DIRECTOR 09/24/2024 12:22 AM TELEVISION PROGRAM DIRECTOR Arnulfo Jordan MD LAB POCT ORDERABLES - DEVIC E Final Result Performing Organization Address [facility] Co de Phone Number [facility] [address] [place] [address] * POCT glucose (09/23/2024 9:34 PM TELEVISION PROGRAM DIRECTOR) Glucose, POC 80 70 - 199 mg/dL Comment: For Glucose values <35 mg/dl when Hematocrit is >60 mg/dl,the test may not accurately detect significant hypoglycemia,and testing in the Laboratory should be considered if clinically indicated. Blood 09/23/2024 9:34 PM TELEVISION PROGRAM DIRECTOR 09/23/2024 9:34 PM TELEVISION PROGRAM DIRECTOR Guillermo Nair DO LAB POCT ORDERABLES - DE VICE Final Result Performing Organization Address [facility] Co de Phone Number [facility] [address] [facility] [place] [address] * POCT glucose (09/23/2024 4:10 PM TELEVISION PROGRAM DIRECTOR) Glucose, POC 121 70 - 199 mg/dL Comment: For Glucose values <35 mg/dl when Hematocrit is >60 mg/dl,the test may not accurately detect significant hypoglycemia,and testing in the Laboratory should be considered if clinically indicated. Blood 09/23/2024 4:10 PM TELEVISION PROGRAM DIRECTOR 09/23/2024 4:10 PM TELEVISION PROGRAM DIRECTOR Guillermo Nair DO LAB POCT ORDERABLES - DE VICE Final Result Performing Organization Address [facility] Co de Phone Number [facility] [address] [facility] [place] [address] * POCT glucose (09/23/2024 1:10 PM TELEVISION PROGRAM DIRECTOR) Glucose, POC 115 70 - 199 mg/dL Comment: For Glucose values <35 mg/dl when Hematocrit is >60 mg/dl,the test may not accurately detect significant hypoglycemia,and testing in the Laboratory should be considered if clinically indicated. Blood 09/23/2024 1:10 PM TELEVISION PROGRAM DIRECTOR 09/23/2024 1:10 PM TELEVISION PROGRAM DIRECTOR Flo Villagran MD LAB POCT ORDERABLES - DEVICE Final Result Performing Organization Address [facility] Co de Phone Number [facility] [address] [facility] [place] [address] * POCT glucose (09/23/2024 12:18 PM TELEVISION PROGRAM DIRECTOR) Glucose, POC 83 70 - 199 mg/dL Comment: For Glucose values <35 mg/dl when Hematocrit is >60 mg/dl,the test may not accurately detect significant hypoglycemia,and testing in the Laboratory should be considered if clinically indicated. Blood 09/23/2024 12:1 8 PM TELEVISION PROGRAM DIRECTOR 09/23/2024 12:18 PM TELEVISION PROGRAM DIRECTOR Flo Villagran MD LAB POCT ORDERABLES - DEVICE Final Result Performing Organization Address [facility] de Phone Number [facility] [address] [facility] [employer] [place], [place] [id number] * (ABNORMAL) POCT glucose (09/23/2024 11:55 AM TELEVISION PROGRAM DIRECTOR) Glucose, POC 69(L) 70 - 199 mg/dL Comment: For Glucose values <35 mg/dl when Hematocrit is >60 mg/dl,the test may not accurately detect significant hypoglycemia,and testing in the Laboratory should be considered if clinically indicated. Blood 09/23/2024 11:5 5 AM TELEVISION PROGRAM DIRECTOR 09/23/2024 11:55 AM TELEVISION PROGRAM DIRECTOR us Flo Villagran MD LAB POCT ORDERABLES - DEVICE Final Result Performing Organization Address [facility] Co de Phone Number [facility] [address] [facility] [place] [address] * (ABNORMAL) POCT glucose (09/23/2024 11:54 AM TELEVISION PROGRAM DIRECTOR) Glucose, POC 63(L) 70 - 199 mg/dL Comment: For Glucose values <35 mg/dl when Hematocrit is >60 mg/dl,the test may not accurately detect significant hypoglycemia,and testing in the Laboratory should be considered if clinically indicated. Blood 09/23/2024 11:5 4 AM TELEVISION PROGRAM DIRECTOR 09/23/2024 11:54 AM TELEVISION PROGRAM DIRECTOR us Flo Villagran MD LAB POCT ORDERABLES - DEVICE Final Result Performing Organization Address [facility] de Phone Number [facility] [address] [facility] [employer] [place], [place] [id number] * POCT glucose (09/23/2024 7:47 AM TELEVISION PROGRAM DIRECTOR) Glucose, POC 71 70 - 199 mg/dL Comment: For Glucose values <35 mg/dl when Hematocrit is >60 mg/dl,the test may not accurately detect significant hypoglycemia,and testing in the Laboratory should be considered if clinically indicated. Blood 09/23/2024 7:47 AM TELEVISION PROGRAM DIRECTOR 09/23/2024 7:47 AM TELEVISION PROGRAM DIRECTOR Flo Villagran MD LAB POCT ORDERABLES - DEVICE Final Result Performing Organization Address [facility] de Phone Number [facility] [address] [facility] [place] [address] * POCT glucose (09/23/2024 3:27 AM TELEVISION PROGRAM DIRECTOR) Glucose, POC 92 70 - 199 mg/dL Comment: For Glucose values <35 mg/dl when Hematocrit is >60 mg/dl,the test may not accurately detect significant hypoglycemia,and testing in the Laboratory should be considered if clinically indicated. Blood 09/23/2024 3:27 AM TELEVISION PROGRAM DIRECTOR 09/23/2024 3:27 AM TELEVISION PROGRAM DIRECTOR Flo Villagran MD LAB POCT ORDERABLES - DEVICE Final Result Performing Organization Address [facility] de Phone Number [facility] [address] [facility] [place] [address] * POCT glucose (09/23/2024 1:13 AM TELEVISION PROGRAM DIRECTOR) Glucose, POC 113 70 - 199 mg/dL Comment: For Glucose values <35 mg/dl when Hematocrit is >60 mg/dl,the test may not accurately detect significant hypoglycemia,and testing in the Laboratory should be considered if clinically indicated. Blood 09/23/2024 1:13 AM TELEVISION PROGRAM DIRECTOR 09/23/2024 1:13 AM TELEVISION PROGRAM DIRECTOR Flo Villagran MD LAB POCT ORDERABLES - DEVICE Final Result Performing Organization Address [facility] Co de Phone Number [facility] [address] [place] [address] * POCT glucose (09/23/2024 12:17 AM TELEVISION PROGRAM DIRECTOR) Glucose, POC 195 70 - 199 mg/dL Comment: For Glucose values <35 mg/dl when Hematocrit is >60 mg/dl,the test may not accurately detect significant hypoglycemia,and testing in the Laboratory should be considered if clinically indicated. Blood 09/23/2024 12:1 7 AM TELEVISION PROGRAM DIRECTOR 09/23/2024 12:17 AM TELEVISION PROGRAM DIRECTOR Flo Villagran MD LAB POCT ORDERABLES - DEVICE Final Result Performing Organization Address [facility] de Phone Number [facility] [address] [place] [address] * (ABNORMAL) POCT glucose (09/22/2024 11:54 PM TELEVISION PROGRAM DIRECTOR) Glucose, POC 63(L) 70 - 199 mg/dL Comment: For Glucose values <35 mg/dl when Hematocrit is >60 mg/dl,the test may not accurately detect significant hypoglycemia,and testing in the Laboratory should be considered if clinically indicated. Blood 09/22/2024 11:5 4 PM TELEVISION PROGRAM DIRECTOR 09/22/2024 11:54 PM TELEVISION PROGRAM DIRECTOR Flo Villagran MD LAB POCT ORDERABLES - DEVICE Final Result Performing Organization Address [facility] Co de Phone Number [facility] [address] [place] [address] * (ABNORMAL) Blood gas, arterial (09/22/2024 8:33 PM TELEVISION PROGRAM DIRECTOR) pH, Art 7.44 7.35 - 7.45 PCO2, Arterial 37 35 - 45 mmHg [facility] PO2, Arterial 81(L) 83 - 108 mmHg [facility] HCO3 Art (Calculated) 25 20 - 30 mmol/L [facility] BE, art 1 mmol/L [facility] Comment: Interpretive Data No Reference Range Established Current Interpretive Data was last revised on 2017 O2 Sat Art (Calculated) 96 94 - 98 % [facility] Blood 09/22/2024 8:33 PM TELEVISION PROGRAM DIRECTOR 09/22/2024 8:36 PM TELEVISION PROGRAM DIRECTOR us Chad Veras MD LAB BLOOD ORDERABLES Final R esult Performing Organization Address [facility] Co de Phone Number [facility] [address] Department of [employer] [place], [place] [id number] * POCT glucose (09/22/2024 7:46 PM TELEVISION PROGRAM DIRECTOR) Glucose, POC 95 70 - 199 mg/dL Comment: For Glucose values <35 mg/dl when Hematocrit is >60 mg/dl,the test may not accurately detect significant hypoglycemia,and testing in the Laboratory should be considered if clinically indicated. Blood 09/22/2024 7:46 PM TELEVISION PROGRAM DIRECTOR 09/22/2024 7:46 PM TELEVISION PROGRAM DIRECTOR us Flo Villagran MD LAB POCT ORDERABLES - DEVICE Final Result Performing Organization Address City/[facility]/ZIP Co de Phone Number [facility] [address] [place] [address] * POCT glucose (09/22/2024 4:04 PM TELEVISION PROGRAM DIRECTOR) Glucose, POC 166 70 - 199 mg/dL Comment: For Glucose values <35 mg/dl when Hematocrit is >60 mg/dl,the test may not accurately detect significant hypoglycemia,and testing in the Laboratory should be considered if clinically indicated. Blood 09/22/2024 4:04 PM TELEVISION PROGRAM DIRECTOR 09/22/2024 4:04 PM TELEVISION PROGRAM DIRECTOR Flo Villagran MD LAB POCT ORDERABLES - DEVICE Final Result Performing Organization Address [facility] de Phone Number [facility] [address] [place] [address] * POCT glucose (09/22/2024 11:51 AM TELEVISION PROGRAM DIRECTOR) Glucose, POC 187 70 - 199 mg/dL Comment: For Glucose values <35 mg/dl when Hematocrit is >60 mg/dl,the test may not accurately detect significant hypoglycemia,and testing in the Laboratory should be considered if clinically indicated. Blood 09/22/2024 11:5 1 AM TELEVISION PROGRAM DIRECTOR 09/22/2024 11:51 AM TELEVISION PROGRAM DIRECTOR Flo Villagran MD LAB POCT ORDERABLES - DEVICE Final Result Performing Organization Address [facility] de Phone Number [facility] [address] [facility] [place] [address] * (ABNORMAL) POCT glucose (09/22/2024 8:42 AM TELEVISION PROGRAM DIRECTOR) Glucose, POC 210(H) 70 - 199 mg/dL Comment: For Glucose values <35 mg/dl when Hematocrit is >60 mg/dl,the test may not accurately detect significant hypoglycemia,and testing in the Laboratory should be considered if clinically indicated. Blood 09/22/2024 8:42 AM TELEVISION PROGRAM DIRECTOR 09/22/2024 8:42 AM TELEVISION PROGRAM DIRECTOR Flo Villagran MD LAB POCT ORDERABLES - DEVICE Final Result Performing Organization Address [facility] Co de Phone Number [facility] [address] [facility] [place] [address] * POCT glucose (09/22/2024 4:05 AM TELEVISION PROGRAM DIRECTOR) Glucose, POC 199 70 - 199 mg/dL Comment: For Glucose values <35 mg/dl when Hematocrit is >60 mg/dl,the test may not accurately detect significant hypoglycemia,and testing in the Laboratory should be considered if clinically indicated. Blood 09/22/2024 4:05 AM TELEVISION PROGRAM DIRECTOR 09/22/2024 4:05 AM TELEVISION PROGRAM DIRECTOR Flo Villagran MD LAB POCT ORDERABLES - DEVICE Final Result [facility] [address] Department [place] [address] * XR Chest 1 View (09/22/2024 3:59 AM TELEVISION PROGRAM DIRECTOR) Anatomical Region Laterality Modality Body, Chest N/A Computed Radiogr aphy 09/22/2024 9:18 AM TELEVISION PROGRAM DIRECTOR Impressions 09/22/2024 9:18 AM TELEVISION PROGRAM DIRECTOR The current study is compared with the [...] Blair Lopez M.D. Narrative 09/22/2024 9:18 AM TELEVISION PROGRAM DIRECTOR EXAMINATION: XR CHEST 1 VIEW Procedure Note [...] lt * (ABNORMAL) eGFR (09/22/2024 2:24 AM TELEVISION PROGRAM DIRECTOR) eGFR 53(L) >=60 mL/min/1. 73 m2 Comment: [...] last reviewed 2021. Blood 09/22/2024 2:24 AM TELEVISION PROGRAM DIRECTOR 09/22/2024 2:55 AM TELEVISION PROGRAM DIRECTOR Flo Villagran MD LAB BLOOD ORDERABLES Final R esult [facility] [address] Department [place] [address] * (ABNORMAL) CBC without differential (09/22/2024 2:24 AM TELEVISION PROGRAM DIRECTOR) Pathologist [facility] WBC 15.1(H) 3.8 - 9.9 K/cumm Hgb 7.5(L) 11.9 - 15.5 g/dL [facility] Hct 23.4(L) 35.6 - 45.5 % [facility] Plt 248 150 - 400 K/cumm [facility] MPV 12.5(H) 9.1 - 12.3 fL [facility] RBC 2.55(L) 3.90 - 5.20 M/cumm [facility] MCV 91.8 81.3 - 96.4 fL [facility] MCH 29.4 27.1 - 33.3 pg [facility] MCHC 32.1(L) 32.3 - 35.7 g/dL [facility] RDW CV 15.2(H) 11.1 - 14.9 % [facility] RDW SD 50.1(H) 35.7 - 48.1 fL [facility] NRBC abs 0.00 0.00 - 0.01 K/cumm [facility] Blood 09/22/2024 2:24 AM TELEVISION PROGRAM DIRECTOR 09/22/2024 2:40 AM TELEVISION PROGRAM DIRECTOR Flo Villagran MD LAB BLOOD ORDERABLES Final R esult Performing Organization Address [facility] Co de Phone Number [facility] [address] [employer] [place], [place] [id number] * Magnesium (09/22/2024 2:24 AM TELEVISION PROGRAM DIRECTOR) [facility] Magnesium 2.0 1.4 - 2.5 mg/dL Blood 09/22/2024 2:24 AM TELEVISION PROGRAM DIRECTOR 09/22/2024 2:55 AM TELEVISION PROGRAM DIRECTOR Flo Villagran MD LAB BLOOD ORDERABLES Final R esult Performing Organization Address City/[facility] Co de Phone Number [facility] [address] [place] [address] * (ABNORMAL) Renal function panel (09/22/2024 2:24 AM TELEVISION PROGRAM DIRECTOR) Pathologist [facility] Sodium 140 135 - 145 mmol/L Potassium, pl 3.4 3.3 - 4.9 mmol/L [facility] Chloride 108 97 - 110 mmol/L [facility] CO2 20(L) 22 - 32 mmol/L [facility] Anion gap 12 2 - 15 mmol/L [facility] BUN 31(H) 6 - 25 mg/dL [facility] Creatinine 1.25(H) 0.60 - 1.10 mg/dL [facility] Glucose 189 70 - 199 mg/dL [facility] Comment: Interpretive Data Fasting glucose >/= 126 [...] 2022. Calcium 7.5(L) 8.5 - 10.3 mg/dL [facility] Phosphorus, pl 3.6 2.3 - 4.5 mg/dL [facility] Albumin 2.1(L) 3.5 - 5.0 g/dL [facility] Blood 09/22/2024 2:24 AM TELEVISION PROGRAM DIRECTOR 09/22/2024 2:55 AM TELEVISION PROGRAM DIRECTOR Flo Villagran MD LAB BLOOD ORDERABLES Final R esult [facility] [address] Department [place] [address] * POCT glucose (09/21/2024 11:58 PM TELEVISION PROGRAM DIRECTOR) [facility] Signature Glucose, POC 177 70 - 199 mg/dL Comment: For Glucose values <35 mg/dl when Hematocrit is >60 mg/dl,the test may not accurately detect significant hypoglycemia,and testing in the Laboratory should be considered if clinically indicated. Blood 09/21/2024 11:5 8 PM TELEVISION PROGRAM DIRECTOR 09/21/2024 11:58 PM TELEVISION PROGRAM DIRECTOR Flo Villagran MD LAB POCT ORDERABLES - DEVICE Final Result [facility] [address] [facility] [place] [address] * POCT glucose (09/21/2024 7:01 PM TELEVISION PROGRAM DIRECTOR) Glucose, POC 134 70 - 199 mg/dL Comment: For Glucose values <35 mg/dl when Hematocrit is >60 mg/dl,the test may not accurately detect significant hypoglycemia,and testing in the Laboratory should be considered if clinically indicated. Blood 09/21/2024 7:01 PM TELEVISION PROGRAM DIRECTOR 09/21/2024 7:01 PM TELEVISION PROGRAM DIRECTOR Flo Villagran MD LAB POCT ORDERABLES - DEVICE Final Result Performing Organization Address [facility] de Phone Number [facility] [address] [place] [address] * POCT glucose (09/21/2024 3:10 PM TELEVISION PROGRAM DIRECTOR) Glucose, POC 140 70 - 199 mg/dL Comment: For Glucose values <35 mg/dl when Hematocrit is >60 mg/dl,the test may not accurately detect significant hypoglycemia,and testing in the Laboratory should be considered if clinically indicated. Blood 09/21/2024 3:10 PM TELEVISION PROGRAM DIRECTOR 09/21/2024 3:10 PM TELEVISION PROGRAM DIRECTOR Flo Villagran MD LAB POCT ORDERABLES - DEVICE Final Result Performing Organization Address [facility] de Phone Number [facility] [address] [place] [address] * Potassium (09/21/2024 2:07 PM TELEVISION PROGRAM DIRECTOR) Potassium, pl 3.9 3.3 - 4.9 mmol/L Blood 09/21/2024 2:07 PM TELEVISION PROGRAM DIRECTOR 09/21/2024 2:07 PM TELEVISION PROGRAM DIRECTOR Flo Villagran MD LAB BLOOD ORDERABLES Final R esult Performing Organization Address [facility] Co de Phone Number [facility] [address] [facility] [employer] [place], [place] [id number] * (ABNORMAL) POCT glucose (09/21/2024 11:30 AM TELEVISION PROGRAM DIRECTOR) Glucose, POC 200(H) 70 - 199 mg/dL Comment: For Glucose values <35 mg/dl when Hematocrit is >60 mg/dl,the test may not accurately detect significant hypoglycemia,and testing in the Laboratory should be considered if clinically indicated. Blood 09/21/2024 11:3 0 AM TELEVISION PROGRAM DIRECTOR 09/21/2024 11:30 AM TELEVISION PROGRAM DIRECTOR Flo Villagran MD LAB POCT ORDERABLES - DEVICE Final Result Performing Organization Address [facility] de Phone Number [facility] [address] [facility] [place] [address] * (ABNORMAL) POCT glucose (09/21/2024 7:19 AM TELEVISION PROGRAM DIRECTOR) Glucose, POC 230(H) 70 - 199 mg/dL Comment: For Glucose values <35 mg/dl when Hematocrit is >60 mg/dl,the test may not accurately detect significant hypoglycemia,and testing in the Laboratory should be considered if clinically indicated. Blood 09/21/2024 7:19 AM TELEVISION PROGRAM DIRECTOR 09/21/2024 7:19 AM TELEVISION PROGRAM DIRECTOR Flo Villagran MD LAB POCT ORDERABLES - DEVICE Final Result Performing Organization Address [facility] Co de Phone Number [facility] [address] [facility] [employer] [place], [place] [id number] * XR Chest 1 View (09/21/2024 4:44 AM TELEVISION PROGRAM DIRECTOR) Anatomical Region Laterality Modality Body, Chest N/A Computed Radiogr aphy 09/21/2024 7:37 AM TELEVISION PROGRAM DIRECTOR Impressions 09/21/2024 7:37 AM TELEVISION PROGRAM DIRECTOR Comparison is made to 2024. Endotracheal tube 2.7 cm above the jessenia. Nasogastric tube tip located with diaphragm, not included [id number]. There is slightly improved aeration within the left retrocardiac location likely representing improving aspiration/pneumonia. There is mild right basilar atelectasis. No pleural effusion or pneumothorax. Stable heart size. Electronically signed by: Ruiz Coles M.D. Narrative 09/21/2024 7:37 AM TELEVISION PROGRAM DIRECTOR Examination: Chest 1 view Procedure Note Ruiz Coles MD - 09/21/2024 Examination: Chest 1 view IMPRESSION: Comparison is made to 2024. Endotracheal tube 2.7 cm above the jessenia. Nasogastric tube tip located with diaphragm, not included [id number]. There is slightly improved aeration within the left retrocardiac location likely representing improving aspiration/pneumonia. There is mild right basilar atelectasis. No pleural effusion or pneumothorax. Stable heart size. Electronically signed by: Ruiz Coles M.D. Flo Villagran MD IMG XR PROCEDURES Final Resu lt * (ABNORMAL) POCT glucose (09/21/2024 3:47 AM TELEVISION PROGRAM DIRECTOR) [facility] Glucose, POC 235(H) 70 - 199 mg/dL Comment: For Glucose values <35 mg/dl when Hematocrit is >60 mg/dl,the test may not accurately detect significant hypoglycemia,and testing in the Laboratory should be considered if clinically indicated. Blood 09/21/2024 3:47 AM TELEVISION PROGRAM DIRECTOR 09/21/2024 3:47 AM TELEVISION PROGRAM DIRECTOR Flo Villagran MD LAB POCT ORDERABLES - DEVICE Final Result [facility] [address] Department of Laboratories [place], [place] [id number] * (ABNORMAL) eGFR (09/21/2024 1:48 AM TELEVISION PROGRAM DIRECTOR) eGFR 50(L) >=60 mL/min/1. 73 m2 Comment: [...] last reviewed 2021. Blood 09/21/2024 1:48 AM TELEVISION PROGRAM DIRECTOR 09/21/2024 2:06 AM TELEVISION PROGRAM DIRECTOR us Flo Villagran MD LAB BLOOD ORDERABLES Final R esult [facility] [address] Department [place] [address] * (ABNORMAL) CBC without differential (09/21/2024 1:48 AM TELEVISION PROGRAM DIRECTOR) WBC 13.1(H) 3.8 - 9.9 K/cumm Hgb 7.6(L) 11.9 - 15.5 g/dL [facility] Hct 24.6(L) 35.6 - 45.5 % [facility] Plt 229 150 - 400 K/cumm [facility] MPV 12.5(H) 9.1 - 12.3 fL [facility] RBC 2.65(L) 3.90 - 5.20 M/cumm [facility] MCV 92.8 81.3 - 96.4 fL [facility] MCH 28.7 27.1 - 33.3 pg [facility] MCHC 30.9(L) 32.3 - 35.7 g/dL [facility] RDW CV 15.5(H) 11.1 - 14.9 % [facility] RDW SD 51.8(H) 35.7 - 48.1 fL [facility] NRBC abs 0.00 0.00 - 0.01 K/cumm [facility] Blood 09/21/2024 1:48 AM TELEVISION PROGRAM DIRECTOR 09/21/2024 2:06 AM TELEVISION PROGRAM DIRECTOR Flo Villagran MD LAB BLOOD ORDERABLES Final R esult Performing Organization Address City/[facility] Co de Phone Number [facility] [address] [facility] [facility] [place] [address] * Phosphorus (09/21/2024 1:48 AM TELEVISION PROGRAM DIRECTOR) Phosphorus, pl 3.2 2.3 - 4.5 mg/dL Blood 09/21/2024 1:48 AM TELEVISION PROGRAM DIRECTOR 09/21/2024 2:06 AM TELEVISION PROGRAM DIRECTOR Flo Villagran MD LAB BLOOD ORDERABLES Final R esult Performing Organization Address [facility] Co de Phone Number [facility] [address] [employer] [place], [place] [id number] * Magnesium (09/21/2024 1:48 AM TELEVISION PROGRAM DIRECTOR) Magnesium 2.0 1.4 - 2.5 mg/dL Blood 09/21/2024 1:48 AM TELEVISION PROGRAM DIRECTOR 09/21/2024 2:06 AM TELEVISION PROGRAM DIRECTOR Flo Villagran MD LAB BLOOD ORDERABLES Final R esult Performing Organization Address [facility] Co de Phone Number [facility] [address] [facility] [place] [employer] [place], [place] [id number] * Bilirubin, direct (09/21/2024 1:48 AM TELEVISION PROGRAM DIRECTOR) Bilirubin, direct <0.2 0.1 - 0.3 mg/dL Blood 09/21/2024 1:48 AM TELEVISION PROGRAM DIRECTOR 09/21/2024 2:06 AM TELEVISION PROGRAM DIRECTOR Flo Villagran MD LAB BLOOD ORDERABLES Final R esult [facility] [address] Department [place] [address] * (ABNORMAL) Comprehensive metabolic panel (09/21/2024 1:48 AM TELEVISION PROGRAM DIRECTOR) Sodium 144 135 - 145 mmol/L Potassium, pl 2.9(L) 3.3 - 4.9 mmol/L [facility] Chloride 112(H) 97 - 110 mmol/L [facility] CO2 19(L) 22 - 32 mmol/L [facility] Anion gap 13 2 - 15 mmol/L [facility] BUN 32(H) 6 - 25 mg/dL [facility] Creatinine 1.31(H) 0.60 - 1.10 mg/dL [facility] Glucose 259(H) 70 - 199 mg/dL [facility] Comment: Interpretive Data Fasting glucose >/= 126 [...] 2022. Calcium 7.4(L) 8.5 - 10.3 mg/dL [facility] Bilirubin, total 0.2 0.1 - 1.2 mg/dL [facility] Protein, pl 5.6(L) 6.5 - 8.5 g/dL [facility] Albumin 2.0(L) 3.5 - 5.0 g/dL [facility] Alk phos 135(H) 40 - 130 Units/L [facility] ALT 16 7 - 45 Units/L [facility] AST 23 10 - 45 Units/L [facility] Blood 09/21/2024 1:48 AM TELEVISION PROGRAM DIRECTOR 09/21/2024 2:06 AM TELEVISION PROGRAM DIRECTOR Flo Villagran MD LAB BLOOD ORDERABLES Final R esult Performing Organization Address [facility] Co de Phone Number [facility] [address] [facility] [place] [address] * (ABNORMAL) POCT glucose (09/20/2024 11:54 PM TELEVISION PROGRAM DIRECTOR) Glucose, POC 264(H) 70 - 199 mg/dL Comment: For Glucose values <35 mg/dl when Hematocrit is >60 mg/dl,the test may not accurately detect significant hypoglycemia,and testing in the Laboratory should be considered if clinically indicated. Blood 09/20/2024 11:5 4 PM TELEVISION PROGRAM DIRECTOR 09/20/2024 11:54 PM TELEVISION PROGRAM DIRECTOR Flo Villagran MD LAB POCT ORDERABLES - DEVICE Final Result Performing Organization Address [facility] de Phone Number [facility] [address] [facility] [place] [address] * (ABNORMAL) POCT glucose (09/20/2024 7:03 PM TELEVISION PROGRAM DIRECTOR) Glucose, POC 253(H) 70 - 199 mg/dL Comment: For Glucose values <35 mg/dl when Hematocrit is >60 mg/dl,the test may not accurately detect significant hypoglycemia,and testing in the Laboratory should be considered if clinically indicated. Blood 09/20/2024 7:03 PM TELEVISION PROGRAM DIRECTOR 09/20/2024 7:03 PM TELEVISION PROGRAM DIRECTOR Flo Villagran MD LAB POCT ORDERABLES - DEVICE Final Result Performing Organization Address [facility] Co de Phone Number [facility] [address] [facility] [place] [address] * POCT glucose (09/20/2024 3:28 PM TELEVISION PROGRAM DIRECTOR) Glucose, POC 179 70 - 199 mg/dL Comment: For Glucose values <35 mg/dl when Hematocrit is >60 mg/dl,the test may not accurately detect significant hypoglycemia,and testing in the Laboratory should be considered if clinically indicated. Blood 09/20/2024 3:28 PM TELEVISION PROGRAM DIRECTOR 09/20/2024 3:28 PM TELEVISION PROGRAM DIRECTOR Flo Villagran MD LAB POCT ORDERABLES - DEVICE Final Result Performing Organization Address [facility] Co de Phone Number [facility] [address] [place] [address] * (ABNORMAL) POCT glucose (09/20/2024 11:48 AM TELEVISION PROGRAM DIRECTOR) Glucose, POC 213(H) 70 - 199 mg/dL Comment: For Glucose values <35 mg/dl when Hematocrit is >60 mg/dl,the test may not accurately detect significant hypoglycemia,and testing in the Laboratory should be considered if clinically indicated. Blood 09/20/2024 11:4 8 AM TELEVISION PROGRAM DIRECTOR 09/20/2024 11:48 AM TELEVISION PROGRAM DIRECTOR Flo Villagran MD LAB POCT ORDERABLES - DEVICE Final Result Performing Organization Address [facility] de Phone Number [facility] [address] [place] [address] * (ABNORMAL) Blood gas, arterial (09/20/2024 10:54 AM TELEVISION PROGRAM DIRECTOR) pH, Art 7.43 7.35 - 7.45 PCO2, Arterial 30(L) 35 - 45 mmHg [facility] PO2, Arterial 82(L) 83 - 108 mmHg [facility] HCO3 Art (Calculated) 20 20 - 30 mmol/L [facility] BE, art -3 mmol/L [facility] Comment: Interpretive Data No Reference Range Established Current Interpretive Data was last revised on 2017 O2 Sat Art (Calculated) 96 94 - 98 % [facility] Blood 09/20/2024 10:5 4 AM TELEVISION PROGRAM DIRECTOR 09/20/2024 10:57 AM TELEVISION PROGRAM DIRECTOR us Flo Villagran MD LAB BLOOD ORDERABLES Final R esult [facility] [address] Department [place] [address] * XR Chest 1 View (09/20/2024 9:17 AM TELEVISION PROGRAM DIRECTOR) Anatomical Region Laterality Modality Body, Chest N/A Computed Radiogr aphy 09/20/2024 10:0 9 AM TELEVISION PROGRAM DIRECTOR Impressions 09/20/2024 10:09 AM TELEVISION PROGRAM DIRECTOR Comparison to 09/17/2024. An endotracheal tube terminates approximately 2.5 cm above the jessenia. Endogastric tube coils in the peripyloric region. Bilateral airspace opacities, left greater than right, with mid to lower lung zone predominance has slightly improved. No pleural effusion or pneumothorax. Unchanged heart size. The Electronically signed by: Gibran Astudillo M.D. Narrative 09/20/2024 10:09 AM TELEVISION PROGRAM DIRECTOR EXAMINATION: 1 view chest radiograph Procedure Note [...] lt * POCT glucose (09/20/2024 7:20 AM TELEVISION PROGRAM DIRECTOR) Glucose, POC 159 70 - 199 mg/dL Comment: For Glucose values <35 mg/dl when Hematocrit is >60 mg/dl,the test may not accurately detect significant hypoglycemia,and testing in the Laboratory should be considered if clinically indicated. Blood 09/20/2024 7:20 AM TELEVISION PROGRAM DIRECTOR 09/20/2024 7:20 AM TELEVISION PROGRAM DIRECTOR Flo Villagran MD LAB POCT ORDERABLES - DEVICE Final Result Performing Organization Address [facility] Co de Phone Number [facility] [address] Department of Laboratories [place], [place] [id number] * POCT glucose (09/20/2024 3:37 AM TELEVISION PROGRAM DIRECTOR) Pathologist [facility] Glucose, POC 195 70 - 199 mg/dL Comment: For Glucose values <35 mg/dl when Hematocrit is >60 mg/dl,the test may not accurately detect significant hypoglycemia,and testing in the Laboratory should be considered if clinically indicated. Blood 09/20/2024 3:37 AM TELEVISION PROGRAM DIRECTOR 09/20/2024 3:37 AM TELEVISION PROGRAM DIRECTOR Flo Villagran MD LAB POCT ORDERABLES - DEVICE Final Result Performing Organization Address [facility] Co de Phone Number [facility] [address] Department of [employer] [place], [place] [phone] * (ABNORMAL) eGFR (09/20/2024 12:27 AM TELEVISION PROGRAM DIRECTOR) [facility] eGFR 43(L) >=60 mL/min/1. 73 m2 Comment: [...] reviewed 2021. Blood 09/20/2024 12:2 7 AM TELEVISION PROGRAM DIRECTOR 09/20/2024 12:27 AM TELEVISION PROGRAM DIRECTOR us Elida Vigil DO LAB BLOOD ORDERABLES F inal Result [facility] [address] Department of Laboratories [place], [place] [id number] * (ABNORMAL) Differential, auto (09/20/2024 12:27 AM TELEVISION PROGRAM DIRECTOR) Neutrophil abs 8.9(H) 1.5 - 6.5 K/cumm Imm gran abs 0.5(H) 0.0 - 0.1 K/cumm [facility] Lymphocyte abs 0.9 0.8 - 3.3 K/cumm [facility] Monocyte abs 0.7 0.2 - 0.8 K/cumm [facility] Eosinophil abs 0.2 0.0 - 0.5 K/cumm [facility] Basophil abs 0.0 0.0 - 0.1 K/cumm [facility] Neutrophil pct 79.8 % [facility] Comment: Interpretive Data Percent cell count reference ranges are not reported, since discordance with absolute values may lead to misinterpretation of CBC data. Current Interpretive Data was last revised on 2017. Imm gran pct 4.5 % [facility] Comment: Interpretive Data Percent cell count reference ranges are not reported, since discordance with absolute values may lead to misinterpretation of CBC data. Current Interpretive Data was last revised on 2017. Lymphocyte pct 7.8 % [facility] Comment: Interpretive Data Percent cell count reference ranges are not reported, since discordance with absolute values may lead to misinterpretation of CBC data. Current Interpretive Data was last revised on 2017. Monocyte pct 6.3 % [facility] Comment: Interpretive Data Percent cell count reference ranges are not reported, since discordance with absolute values may lead to misinterpretation of CBC data. Current Interpretive Data was last revised on 2017. Eosinophil pct 1.4 % [facility] Comment: Interpretive Data Percent cell count reference ranges are not reported, since discordance with absolute values may lead to misinterpretation of CBC data. Current Interpretive Data was last revised on 2017. Basophil pct 0.2 % [facility] Comment: Interpretive Data Percent cell count reference ranges are not reported, since discordance with absolute values may lead to misinterpretation of CBC data. Current Interpretive Data was last revised on 2017. Blood 09/20/2024 12:2 7 AM TELEVISION PROGRAM DIRECTOR 09/20/2024 12:27 AM TELEVISION PROGRAM DIRECTOR us Elida Vigil DO LAB BLOOD ORDERABLES F inal Result [facility] [address] Department [place] [address] * (ABNORMAL) CBC with auto differential (09/20/2024 12:27 AM TELEVISION PROGRAM DIRECTOR) WBC 11.2(H) 3.8 - 9.9 K/cumm Hgb 7.6(L) 11.9 - 15.5 g/dL [facility] Hct 24.5(L) 35.6 - 45.5 % [facility] Plt 190 150 - 400 K/cumm [facility] MPV 13.0(H) 9.1 - 12.3 fL [facility] RBC 2.67(L) 3.90 - 5.20 M/cumm [facility] MCV 91.8 81.3 - 96.4 fL [facility] MCH 28.5 27.1 - 33.3 pg [facility] MCHC 31.0(L) 32.3 - 35.7 g/dL [facility] RDW CV 15.2(H) 11.1 - 14.9 % [facility] RDW SD 50.5(H) 35.7 - 48.1 fL [facility] NRBC abs 0.00 0.00 - 0.01 K/cumm [facility] Blood 09/20/2024 12:2 7 AM TELEVISION PROGRAM DIRECTOR 09/20/2024 12:27 AM TELEVISION PROGRAM DIRECTOR us Elida Schumacher [place] DO LAB BLOOD ORDERABLES F inal Result [facility] [address] Department [place] [address] * (ABNORMAL) Comprehensive metabolic panel (09/20/2024 12:27 AM TELEVISION PROGRAM DIRECTOR) Sodium 147(H) 135 - 145 mmol/L Potassium, pl 3.3 3.3 - 4.9 mmol/L [facility] Chloride 117(H) 97 - 110 mmol/L [facility] CO2 18(L) 22 - 32 mmol/L [facility] Anion gap 12 2 - 15 mmol/L [facility] BUN 40(H) 6 - 25 mg/dL [facility] Creatinine 1.48(H) 0.60 - 1.10 mg/dL [facility] Glucose 221(H) 70 - 199 mg/dL [facility] Comment: Interpretive Data Fasting glucose >/= 126 [...] 2022. Calcium 7.5(L) 8.5 - 10.3 mg/dL [facility] Bilirubin, total 0.2 0.1 - 1.2 mg/dL [facility] Protein, pl 5.6(L) 6.5 - 8.5 g/dL [facility] Albumin 2.1(L) 3.5 - 5.0 g/dL [facility] Alk phos 134(H) 40 - 130 Units/L [facility] ALT 14 7 - 45 Units/L [facility] AST 27 10 - 45 Units/L [facility] Blood 09/20/2024 12:2 7 AM TELEVISION PROGRAM DIRECTOR 09/20/2024 12:27 AM TELEVISION PROGRAM DIRECTOR Elida Gusmanricjuvenal Vigil DO LAB BLOOD ORDERABLES F inal Result Performing Organization Address [facility] Co de Phone Number [facility] [address] [facility] [place] [address] * (ABNORMAL) POCT glucose (09/19/2024 11:00 PM TELEVISION PROGRAM DIRECTOR) Glucose, POC 217(H) 70 - 199 mg/dL Comment: For Glucose values <35 mg/dl when Hematocrit is >60 mg/dl,the test may not accurately detect significant hypoglycemia,and testing in the Laboratory should be considered if clinically indicated. Blood 09/19/2024 11:0 0 PM TELEVISION PROGRAM DIRECTOR 09/19/2024 11:00 PM TELEVISION PROGRAM DIRECTOR Flo Villagran MD LAB POCT ORDERABLES - DEVICE Final Result Performing Organization Address [facility] de Phone Number [facility] [address] [facility] [place] [address] * POCT glucose (09/19/2024 7:52 PM TELEVISION PROGRAM DIRECTOR) Glucose, POC 196 70 - 199 mg/dL Comment: For Glucose values <35 mg/dl when Hematocrit is >60 mg/dl,the test may not accurately detect significant hypoglycemia,and testing in the Laboratory should be considered if clinically indicated. Blood 09/19/2024 7:52 PM TELEVISION PROGRAM DIRECTOR 09/19/2024 7:52 PM TELEVISION PROGRAM DIRECTOR Flo Villagran MD LAB POCT ORDERABLES - DEVICE Final Result Performing Organization Address [facility] Co de Phone Number [facility] [address] Department [place] [address] * POCT glucose (09/19/2024 4:55 PM TELEVISION PROGRAM DIRECTOR) Glucose, POC 179 70 - 199 mg/dL Comment: For Glucose values <35 mg/dl when Hematocrit is >60 mg/dl,the test may not accurately detect significant hypoglycemia,and testing in the Laboratory should be considered if clinically indicated. Blood 09/19/2024 4:55 PM TELEVISION PROGRAM DIRECTOR 09/19/2024 4:55 PM TELEVISION PROGRAM DIRECTOR Flo Villagran MD LAB POCT ORDERABLES - DEVICE Final Result Performing Organization Address [facility] de Phone Number [facility] [address] [place] [address] * (ABNORMAL) POCT glucose (09/19/2024 12:31 PM TELEVISION PROGRAM DIRECTOR) Glucose, POC 260(H) 70 - 199 mg/dL Comment: For Glucose values <35 mg/dl when Hematocrit is >60 mg/dl,the test may not accurately detect significant hypoglycemia,and testing in the Laboratory should be considered if clinically indicated. Blood 09/19/2024 12:3 1 PM TELEVISION PROGRAM DIRECTOR 09/19/2024 12:31 PM TELEVISION PROGRAM DIRECTOR Flo Villagran MD LAB POCT ORDERABLES - DEVICE Final Result Performing Organization Address [facility] de Phone Number [facility] [address] [place] [address] * Potassium (09/19/2024 10:04 AM TELEVISION PROGRAM DIRECTOR) Potassium, pl 3.4 3.3 - 4.9 mmol/L Blood 09/19/2024 10:0 4 AM TELEVISION PROGRAM DIRECTOR 09/19/2024 10:12 AM TELEVISION PROGRAM DIRECTOR Elida Vigil DO LAB BLOOD ORDERABLES F inal Result [facility] [address] Department [place] [address] * EEG (09/19/2024 8:50 AM TELEVISION PROGRAM DIRECTOR) Anatomical Region Laterality Modality EEG Narrative 09/19/2024 1:18 PM TELEVISION PROGRAM DIRECTOR REPORT OF ELECTROENCEPHALOGRAM DATE OF STUDY: 09/19/24 Brooke Marshall 1975 REASON FOR STUDY: Confusional state BRIEF HISTORY: Brooke Marshall is a 48 y.o. year old female currently in the ICU, still on ventilator. Admitted with DKA and influenza. Has been witnessed to have diminished mental status. DESCRIPTION: This is a routine 18-channel EEG. The underlying background rhythm consists of a [id number] voltage 5-7 Hz theta rhythm which remains [...] * (ABNORMAL) POCT glucose (09/19/2024 7:53 AM TELEVISION PROGRAM DIRECTOR) Glucose, POC 214(H) 70 - 199 mg/dL Comment: For Glucose values <35 mg/dl when Hematocrit is >60 mg/dl,the test may not accurately detect significant hypoglycemia,and testing in the Laboratory should be considered if clinically indicated. Blood 09/19/2024 7:53 AM TELEVISION PROGRAM DIRECTOR 09/19/2024 7:53 AM TELEVISION PROGRAM DIRECTOR Elida Vigil BuddyBounce LAB POCT ORDERABLES - DEVICE Final Result Performing Organization Address [facility] de Phone Number [facility] [address] [place] [address] * (ABNORMAL) POCT glucose (09/19/2024 3:58 AM TELEVISION PROGRAM DIRECTOR) Pathologist [facility] Glucose, POC 234(H) 70 - 199 mg/dL Comment: For Glucose values <35 mg/dl when Hematocrit is >60 mg/dl,the test may not accurately detect significant hypoglycemia,and testing in the Laboratory should be considered if clinically indicated. Blood 09/19/2024 3:58 AM TELEVISION PROGRAM DIRECTOR 09/19/2024 3:58 AM TELEVISION PROGRAM DIRECTOR Elida Vigil LAB POCT ORDERABLES - DEVICE Final Result Performing Organization Address [facility] de Phone Number [facility] [address] Department [place] [address] * (ABNORMAL) eGFR (09/19/2024 1:46 AM TELEVISION PROGRAM DIRECTOR) [facility] eGFR 36(L) >=60 mL/min/1. 73 m2 Comment: [...] last reviewed 2021. Blood 09/19/2024 1:46 AM TELEVISION PROGRAM DIRECTOR 09/19/2024 1:46 AM TELEVISION PROGRAM DIRECTOR us Elida Vigil DO LAB BLOOD ORDERABLES F inal Result [facility] [address] Department [place] [address] * (ABNORMAL) Differential, auto (09/19/2024 1:46 AM TELEVISION PROGRAM DIRECTOR) Neutrophil abs 6.7(H) 1.5 - 6.5 K/cumm Imm gran abs 0.5(H) 0.0 - 0.1 K/cumm [facility] Lymphocyte abs 0.7(L) 0.8 - 3.3 K/cumm [facility] Monocyte abs 1.1(H) 0.2 - 0.8 K/cumm [facility] Eosinophil abs 0.1 0.0 - 0.5 K/cumm [facility] Basophil abs 0.0 0.0 - 0.1 K/cumm [facility] Neutrophil pct 72.5 % [facility] Comment: Interpretive Data Percent cell count reference ranges are not reported, since discordance with absolute values may lead to misinterpretation of CBC data. Current Interpretive Data was last revised on 2017. Imm gran pct 5.8 % [facility] Comment: Interpretive Data Percent cell count reference ranges are not reported, since discordance with absolute values may lead to misinterpretation of CBC data. Current Interpretive Data was last revised on 2017. Lymphocyte pct 8.1 % [facility] Comment: Interpretive Data Percent cell count reference ranges are not reported, since discordance with absolute values may lead to misinterpretation of CBC data. Current Interpretive Data was last revised on 2017. Monocyte pct 12.3 % [facility] Comment: Interpretive Data Percent cell count reference ranges are not reported, since discordance with absolute values may lead to misinterpretation of CBC data. Current Interpretive Data was last revised on 2017. Eosinophil pct 1.2 % [facility] Comment: Interpretive Data Percent cell count reference ranges are not reported, since discordance with absolute values may lead to misinterpretation of CBC data. Current Interpretive Data was last revised on 2017. Basophil pct 0.1 % [facility] Comment: Interpretive Data Percent cell count reference ranges are not reported, since discordance with absolute values may lead to misinterpretation of CBC data. Current Interpretive Data was last revised on 2017. Blood 09/19/2024 1:46 AM TELEVISION PROGRAM DIRECTOR 09/19/2024 1:46 AM TELEVISION PROGRAM DIRECTOR us Elida Vigil DO LAB BLOOD ORDERABLES F inal Result [facility] [address] Department [place] [address] * (ABNORMAL) CBC with auto differential (09/19/2024 1:46 AM TELEVISION PROGRAM DIRECTOR) WBC 9.2 3.8 - 9.9 K/cumm Hgb 7.5(L) 11.9 - 15.5 g/dL [facility] Hct 23.7(L) 35.6 - 45.5 % [facility] Plt 150 150 - 400 K/cumm [facility] MPV 13.4(H) 9.1 - 12.3 fL [facility] RBC 2.61(L) 3.90 - 5.20 M/cumm [facility] MCV 90.8 81.3 - 96.4 fL [facility] MCH 28.7 27.1 - 33.3 pg [facility] MCHC 31.6(L) 32.3 - 35.7 g/dL [facility] RDW CV 14.9 11.1 - 14.9 % [facility] RDW SD 49.1(H) 35.7 - 48.1 fL [facility] NRBC abs 0.00 0.00 - 0.01 K/cumm [facility] Blood 09/19/2024 1:46 AM TELEVISION PROGRAM DIRECTOR 09/19/2024 1:46 AM TELEVISION PROGRAM DIRECTOR us Elida Winsome Barks DO LAB BLOOD ORDERABLES E dited Result - Final Performing Organization Address [facility] Co de Phone Number [facility] [address] [facility] [place] [address] * Manual Differential (09/19/2024 1:46 AM TELEVISION PROGRAM DIRECTOR) Differential Auto RBC morphology Normal [facility] Morphology scrn See Comment [facility] Comment:PLT: Platelet morpho logy normal Blood 09/19/2024 1:46 AM TELEVISION PROGRAM DIRECTOR 09/19/2024 1:46 AM TELEVISION PROGRAM DIRECTOR us Elida Winsome Barks DO LAB BLOOD ORDERABLES F inal Result Performing Organization Address [facility] de Phone Number [facility] [address] Department [place] [address] * Phosphorus (09/19/2024 1:46 AM TELEVISION PROGRAM DIRECTOR) Phosphorus, pl 3.0 2.3 - 4.5 mg/dL Blood 09/19/2024 1:46 AM TELEVISION PROGRAM DIRECTOR 09/19/2024 1:46 AM TELEVISION PROGRAM DIRECTOR us Elida Winsome Barks DO LAB BLOOD ORDERABLES F inal Result Performing Organization Address [facility] Co de Phone Number [facility] [address] [place] [address] * Magnesium (09/19/2024 1:46 AM TELEVISION PROGRAM DIRECTOR) Magnesium 2.3 1.4 - 2.5 mg/dL Blood 09/19/2024 1:46 AM TELEVISION PROGRAM DIRECTOR 09/19/2024 1:46 AM TELEVISION PROGRAM DIRECTOR us Elida Winsome Barks DO LAB BLOOD ORDERABLES F inal Result Performing Organization Address [facility] Co de Phone Number [facility] [address] Department [place] [address] * (ABNORMAL) Comprehensive metabolic panel (09/19/2024 1:46 AM TELEVISION PROGRAM DIRECTOR) Sodium 145 135 - 145 mmol/L Potassium, pl 2.6(C) 3.3 - 4.9 mmol/L [facility] Comment:Critical result call ed to and read back by Amber Gaines (RN) on 09/19/24 @ 0210 to [id number] Chloride 113(H) 97 - 110 mmol/L [facility] CO2 20(L) 22 - 32 mmol/L [facility] Anion gap 12 2 - 15 mmol/L [facility] BUN 41(H) 6 - 25 mg/dL [facility] Creatinine 1.73(H) 0.60 - 1.10 mg/dL [facility] Glucose 249(H) 70 - 199 mg/dL [facility] Comment: Interpretive Data Fasting glucose >/= 126 [...] 2022. Calcium 7.5(L) 8.5 - 10.3 mg/dL [facility] Bilirubin, total 0.3 0.1 - 1.2 mg/dL [facility] Protein, pl 5.6(L) 6.5 - 8.5 g/dL [facility] Albumin 2.0(L) 3.5 - 5.0 g/dL [facility] Alk phos 127 40 - 130 Units/L [facility] ALT 12 7 - 45 Units/L [facility] AST 24 10 - 45 Units/L [facility] Blood 09/19/2024 1:46 AM TELEVISION PROGRAM DIRECTOR 09/19/2024 1:46 AM TELEVISION PROGRAM DIRECTOR Elida Vigil LAB BLOOD ORDERABLES F inal Result Performing Organization Address [facility] de Phone Number [facility] [address] [facility] [place] [address] * Ammonia (09/19/2024 1:07 AM TELEVISION PROGRAM DIRECTOR) Ammonia 40 <=50 mcmol/L Blood 09/19/2024 1:07 AM TELEVISION PROGRAM DIRECTOR 09/19/2024 1:12 AM TELEVISION PROGRAM DIRECTOR Elida Vigil LAB BLOOD ORDERABLES F inal Result Performing Organization Address [facility] de Phone Number [facility] [address] [facility] [place] [address] * (ABNORMAL) POCT glucose (09/18/2024 11:58 PM TELEVISION PROGRAM DIRECTOR) Glucose, POC 231(H) 70 - 199 mg/dL Comment: For Glucose values <35 mg/dl when Hematocrit is >60 mg/dl,the test may not accurately detect significant hypoglycemia,and testing in the Laboratory should be considered if clinically indicated. Blood 09/18/2024 11:5 8 PM TELEVISION PROGRAM DIRECTOR 09/18/2024 11:58 PM TELEVISION PROGRAM DIRECTOR Elida Vigil LAB POCT ORDERABLES - DEVICE Final Result Performing Organization Address [facility] de Phone Number [facility] [address] [place] [address] * (ABNORMAL) POCT glucose (09/18/2024 9:10 PM TELEVISION PROGRAM DIRECTOR) Glucose, POC 261(H) 70 - 199 mg/dL Comment: For Glucose values <35 mg/dl when Hematocrit is >60 mg/dl,the test may not accurately detect significant hypoglycemia,and testing in the Laboratory should be considered if clinically indicated. Blood 09/18/2024 9:10 PM TELEVISION PROGRAM DIRECTOR 09/18/2024 9:10 PM TELEVISION PROGRAM DIRECTOR Elida Verahenok LAB POCT ORDERABLES - DEVICE Final Result Performing Organization Address [facility] Co de Phone Number [facility] [address] [place] [address] * (ABNORMAL) POCT glucose (09/18/2024 4:18 PM TELEVISION PROGRAM DIRECTOR) Glucose, POC 229(H) 70 - 199 mg/dL Comment: For Glucose values <35 mg/dl when Hematocrit is >60 mg/dl,the test may not accurately detect significant hypoglycemia,and testing in the Laboratory should be considered if clinically indicated. Blood 09/18/2024 4:18 PM TELEVISION PROGRAM DIRECTOR 09/18/2024 4:18 PM TELEVISION PROGRAM DIRECTOR Elida Winsome Musa [facility] POCT ORDERABLES - DEVICE Final Result Performing Organization Address [facility] de Phone Number [facility] [address] [facility] [place] [address] * (ABNORMAL) POCT glucose (09/18/2024 12:07 PM TELEVISION PROGRAM DIRECTOR) Glucose, POC 260(H) 70 - 199 mg/dL Comment: For Glucose values <35 mg/dl when Hematocrit is >60 mg/dl,the test may not accurately detect significant hypoglycemia,and testing in the Laboratory should be considered if clinically indicated. Blood 09/18/2024 12:0 7 PM TELEVISION PROGRAM DIRECTOR 09/18/2024 12:07 PM TELEVISION PROGRAM DIRECTOR Elida Verahenok LAB POCT ORDERABLES - DEVICE Final Result Performing Organization Address [facility] Co de Phone Number [facility] [address] [place] [address] * (ABNORMAL) DIC Platelet (09/18/2024 8:13 AM TELEVISION PROGRAM DIRECTOR) Plt 147(L) 150 - 400 K/cumm Blood 09/18/2024 8:13 AM TELEVISION PROGRAM DIRECTOR 09/18/2024 8:25 AM TELEVISION PROGRAM DIRECTOR us Elida Schumacher Chuyhenok DO LAB BLOOD ORDERABLES E dited Result - Final [facility] [address] Department [place] [address] * (ABNORMAL) Differential, auto (09/18/2024 8:13 AM TELEVISION PROGRAM DIRECTOR) Pathologist [facility] Neutrophil abs 7.0(H) 1.5 - 6.5 K/cumm Imm gran abs 0.6(H) 0.0 - 0.1 K/cumm [facility] Lymphocyte abs 0.7(L) 0.8 - 3.3 K/cumm [facility] Monocyte abs 1.4(H) 0.2 - 0.8 K/cumm [facility] Eosinophil abs 0.1 0.0 - 0.5 K/cumm [facility] Basophil abs 0.1 0.0 - 0.1 K/cumm [facility] Neutrophil pct 71.8 % [facility] Comment: Interpretive Data Percent cell count reference ranges are not reported, since discordance with absolute values may lead to misinterpretation of CBC data. Current Interpretive Data was last revised on 2017. Imm gran pct 6.0 % [facility] Comment: Interpretive Data Percent cell count reference ranges are not reported, since discordance with absolute values may lead to misinterpretation of CBC data. Current Interpretive Data was last revised on 2017. Lymphocyte pct 6.6 % [facility] Comment: Interpretive Data Percent cell count reference ranges are not reported, since discordance with absolute values may lead to misinterpretation of CBC data. Current Interpretive Data was last revised on 2017. Monocyte pct 14.1 % [facility] Comment: Interpretive Data Percent cell count reference ranges are not reported, since discordance with absolute values may lead to misinterpretation of CBC data. Current Interpretive Data was last revised on 2017. Eosinophil pct 0.9 % [facility] Comment: Interpretive Data Percent cell count reference ranges are not reported, since discordance with absolute values may lead to misinterpretation of CBC data. Current Interpretive Data was last revised on 2017. Basophil pct 0.6 % [facility] Comment: Interpretive Data Percent cell count reference ranges are not reported, since discordance with absolute values may lead to misinterpretation of CBC data. Current Interpretive Data was last revised on 2017. Blood 09/18/2024 8:13 AM TELEVISION PROGRAM DIRECTOR 09/18/2024 8:13 AM TELEVISION PROGRAM DIRECTOR [employer] DO LAB BLOOD ORDERABLES F inal Result Performing Organization Address City/[facility] Co de Phone Number [facility] [address] [place] [address] * DIC Schistocytes (09/18/2024 8:13 AM TELEVISION PROGRAM DIRECTOR) Pathologist [facility] Schistocytes None Seen None Seen Blood 09/18/2024 8:13 AM TELEVISION PROGRAM DIRECTOR 09/18/2024 8:25 AM TELEVISION PROGRAM DIRECTOR [employer] LAB BLOOD ORDERABLES F inal Result Performing Organization Address [facility] Co de Phone Number [facility] [address] [place] [address] * (ABNORMAL) CBC with auto differential (09/18/2024 8:13 AM TELEVISION PROGRAM DIRECTOR) Pathologist [facility] WBC 9.8 3.8 - 9.9 K/cumm Hgb 8.9(L) 11.9 - 15.5 g/dL [facility] Hct 28.7(L) 35.6 - 45.5 % [facility] Plt 147(L) 150 - 400 K/cumm [facility] MPV 13.2(H) 9.1 - 12.3 fL [facility] RBC 3.06(L) 3.90 - 5.20 M/cumm [facility] MCV 93.8 81.3 - 96.4 fL [facility] MCH 29.1 27.1 - 33.3 pg [facility] MCHC 31.0(L) 32.3 - 35.7 g/dL [facility] RDW CV 14.7 11.1 - 14.9 % [facility] RDW SD 50.8(H) 35.7 - 48.1 fL [facility] NRBC abs 0.03(H) 0.00 - 0.01 K/cumm [facility] Blood 09/18/2024 8:13 AM TELEVISION PROGRAM DIRECTOR 09/18/2024 8:20 AM TELEVISION PROGRAM DIRECTOR Elida Vigil DO LAB BLOOD ORDERABLES E dited Result - Final Performing Organization Address [facility]/ZIP Co de Phone Number [facility] [address] Department of [employer] [place], [place] [id number] * (ABNORMAL) POCT glucose (09/18/2024 7:57 AM TELEVISION PROGRAM DIRECTOR) Glucose, POC 271(H) 70 - 199 mg/dL Comment: For Glucose values <35 mg/dl when Hematocrit is >60 mg/dl,the test may not accurately detect significant hypoglycemia,and testing in the Laboratory should be considered if clinically indicated. Blood 09/18/2024 7:57 AM TELEVISION PROGRAM DIRECTOR 09/18/2024 7:57 AM TELEVISION PROGRAM DIRECTOR Elida Vigil DO LAB POCT ORDERABLES - DEVICE Final Result [facility] [address] Department [employer] [place], [place] [id number] * (ABNORMAL) POCT glucose (09/18/2024 7:56 AM TELEVISION PROGRAM DIRECTOR) Glucose, POC 240(H) 70 - 199 mg/dL Comment: For Glucose values <35 mg/dl when Hematocrit is >60 mg/dl,the test may not accurately detect significant hypoglycemia,and testing in the Laboratory should be considered if clinically indicated. Blood 09/18/2024 7:56 AM TELEVISION PROGRAM DIRECTOR 09/18/2024 7:56 AM TELEVISION PROGRAM DIRECTOR Elida Vigil DO LAB POCT ORDERABLES - DEVICE Final Result Performing Organization Address [facility]/ZIP Co de Phone Number [facility] [address] Department [employer] [place], [place] [id number] * (ABNORMAL) eGFR (09/18/2024 7:26 AM TELEVISION PROGRAM DIRECTOR) eGFR 40(L) >=60 mL/min/1. 73 m2 Comment: [...] last reviewed 2021. Blood 09/18/2024 7:26 AM TELEVISION PROGRAM DIRECTOR 09/18/2024 7:47 AM TELEVISION PROGRAM DIRECTOR Elida Vigil DO LAB BLOOD ORDERABLES F inal Result Performing Organization Address City/[facility]/ZIP Co de Phone Number [facility] [address] Department of [employer] [place], [place] [id number] * Phosphorus (09/18/2024 7:26 AM TELEVISION PROGRAM DIRECTOR) Phosphorus, pl 2.9 2.3 - 4.5 mg/dL Comment:Reviewed - dialysis patient Blood 09/18/2024 7:26 AM TELEVISION PROGRAM DIRECTOR 09/18/2024 7:47 AM TELEVISION PROGRAM DIRECTOR Elida Vigil [employer] LAB BLOOD ORDERABLES F inal Result Performing Organization Address [facility] Co de Phone Number [facility] [address] [facility] [employer] [place], [place] [id number] * Magnesium (09/18/2024 7:26 AM TELEVISION PROGRAM DIRECTOR) [facility] Magnesium 2.3 1.4 - 2.5 mg/dL Blood 09/18/2024 7:26 AM TELEVISION PROGRAM DIRECTOR 09/18/2024 7:47 AM TELEVISION PROGRAM DIRECTOR Elida Verahenok LAB BLOOD ORDERABLES F inal Result Performing Organization Address [facility] Co de Phone Number [facility] [address] [place] [address] * Vitamin B12 (09/18/2024 7:26 AM TELEVISION PROGRAM DIRECTOR) [facility] Vitamin B12 878 230 - 1,250 pg/mL Blood 09/18/2024 7:26 AM TELEVISION PROGRAM DIRECTOR 09/18/2024 7:47 AM TELEVISION PROGRAM DIRECTOR Elida Vigil LAB BLOOD ORDERABLES F inal Result Performing Organization Address [facility] Co de Phone Number [facility] [address] [facility] [place] [address] * (ABNORMAL) Comprehensive metabolic panel (09/18/2024 7:26 AM TELEVISION PROGRAM DIRECTOR) [facility] Sodium 143 135 - 145 mmol/L Potassium, pl 3.4 3.3 - 4.9 mmol/L [facility] Comment:Hemolyzed; potassium value may be falsely elevated by as much as 0.3 - 0.5 mmol/L. Suggest redraw and reanalysis Chloride 111(H) 97 - 110 mmol/L [facility] CO2 19(L) 22 - 32 mmol/L [facility] Anion gap 13 2 - 15 mmol/L [facility] BUN 39(H) 6 - 25 mg/dL [facility] Creatinine 1.57(H) 0.60 - 1.10 mg/dL [facility] Glucose 227(H) 70 - 199 mg/dL [facility] Comment: Interpretive Data Fasting glucose >/= 126 [...] 2022. Calcium 7.8(L) 8.5 - 10.3 mg/dL [facility] Bilirubin, total 0.4 0.1 - 1.2 mg/dL [facility] Protein, pl 5.9(L) 6.5 - 8.5 g/dL [facility] Albumin 2.2(L) 3.5 - 5.0 g/dL [facility] Alk phos 141(H) 40 - 130 Units/L [facility] ALT 18 7 - 45 Units/L [facility] AST 31 10 - 45 Units/L [facility] Comment:Slightly Hemolyzed S pecimen Blood 09/18/2024 7:26 AM TELEVISION PROGRAM DIRECTOR 09/18/2024 7:47 AM TELEVISION PROGRAM DIRECTOR us Elida Vigil DO LAB BLOOD ORDERABLES F inal Result [facility] [address] Department [place] [address] * (ABNORMAL) POCT glucose (09/18/2024 4:28 AM TELEVISION PROGRAM DIRECTOR) [facility] Glucose, POC 243(H) 70 - 199 mg/dL Comment: For Glucose values <35 mg/dl when Hematocrit is >60 mg/dl,the test may not accurately detect significant hypoglycemia,and testing in the Laboratory should be considered if clinically indicated. Blood 09/18/2024 4:28 AM TELEVISION PROGRAM DIRECTOR 09/18/2024 4:28 AM TELEVISION PROGRAM DIRECTOR us Elida Winsome Musa DO LAB POCT ORDERABLES - DEVICE Final Result [facility] [address] Department [place] [address] * (ABNORMAL) DIC Coagulation (09/18/2024 4:20 AM TELEVISION PROGRAM DIRECTOR) PT DIC 10.5 10.3 - 13.7 sec INR DIC 0.97 0.90 - 1.20 [facility] PTT DIC 18(L) 28 - 38 sec [facility] Comment: Specimen integrity okay Interpretive Data Heparin therapeutic range: 66.0 - 100.0 seconds. Range based on correlation with therapeutic heparin activity range of 0.3 - 0.7 Units/mL. Current interpretive data was last revised on 2023. D-Dimer 13,588(H) <=499 ng/mL FEU [facility] Comment: Specimen not clotted and filled properly [...] 2019. Fibrinogen 775(H) 170 - 400 mg/dL [facility] Blood 09/18/2024 4:20 AM TELEVISION PROGRAM DIRECTOR 09/18/2024 4:21 AM TELEVISION PROGRAM DIRECTOR Elida Winsome Vigil LAB BLOOD ORDERABLES F inal Result Performing Organization Address [facility] Co de Phone Number [facility] [address] [place] [address] * (ABNORMAL) POCT glucose (09/17/2024 11:57 PM TELEVISION PROGRAM DIRECTOR) Glucose, POC 263(H) 70 - 199 mg/dL Comment: For Glucose values <35 mg/dl when Hematocrit is >60 mg/dl,the test may not accurately detect significant hypoglycemia,and testing in the Laboratory should be considered if clinically indicated. Blood 09/17/2024 11:5 7 PM TELEVISION PROGRAM DIRECTOR 09/17/2024 11:57 PM TELEVISION PROGRAM DIRECTOR Elida Winsome Vigil [facility] POCT ORDERABLES - DEVICE Final Result Performing Organization Address [facility] de Phone Number [facility] [address] [facility] [place] [address] * (ABNORMAL) POCT glucose (09/17/2024 8:02 PM TELEVISION PROGRAM DIRECTOR) Glucose, POC 291(H) 70 - 199 mg/dL Comment: For Glucose values <35 mg/dl when Hematocrit is >60 mg/dl,the test may not accurately detect significant hypoglycemia,and testing in the Laboratory should be considered if clinically indicated. Blood 09/17/2024 8:02 PM TELEVISION PROGRAM DIRECTOR 09/17/2024 8:02 PM TELEVISION PROGRAM DIRECTOR Elida Winsome Barks LAB POCT ORDERABLES - DEVICE Final Result Performing Organization Address [facility] Co de Phone Number [facility] [address] [facility] [place] [address] * (ABNORMAL) POCT glucose (09/17/2024 4:21 PM TELEVISION PROGRAM DIRECTOR) Glucose, POC 283(H) 70 - 199 mg/dL Comment: For Glucose values <35 mg/dl when Hematocrit is >60 mg/dl,the test may not accurately detect significant hypoglycemia,and testing in the Laboratory should be considered if clinically indicated. Blood 09/17/2024 4:21 PM TELEVISION PROGRAM DIRECTOR 09/17/2024 4:21 PM TELEVISION PROGRAM DIRECTOR Elida Vigil DO LAB POCT ORDERABLES - DEVICE Final Result Performing Organization Address [facility] Co de Phone Number [facility] [address] [place] [address] * (ABNORMAL) eGFR (09/17/2024 2:52 PM TELEVISION PROGRAM DIRECTOR) [facility] eGFR 34(L) >=60 mL/min/1. 73 m2 Comment: [...] last reviewed 2021. Blood 09/17/2024 2:52 PM TELEVISION PROGRAM DIRECTOR 09/17/2024 2:57 PM TELEVISION PROGRAM DIRECTOR Elida Vigil DO LAB BLOOD ORDERABLES F inal Result Performing Organization Address [facility]/ZIP Co de Phone Number [facility] [address] [place] [address] * (ABNORMAL) Renal function panel (09/17/2024 2:52 PM TELEVISION PROGRAM DIRECTOR) Pathologist [facility] Sodium 143 135 - 145 mmol/L Potassium, pl 3.6 3.3 - 4.9 mmol/L [facility] Chloride 110 97 - 110 mmol/L [facility] CO2 21(L) 22 - 32 mmol/L [facility] Anion gap 12 2 - 15 mmol/L [facility] BUN 41(H) 6 - 25 mg/dL [facility] Creatinine 1.82(H) 0.60 - 1.10 mg/dL [facility] Glucose 290(H) 70 - 199 mg/dL [facility] Comment: Interpretive Data Fasting glucose >/= 126 [...] 2022. Calcium 7.9(L) 8.5 - 10.3 mg/dL [facility] Phosphorus, pl 5.0(H) 2.3 - 4.5 mg/dL [facility] Comment:Reviewed Albumin 2.4(L) 3.5 - 5.0 g/dL [facility] Blood 09/17/2024 2:52 PM TELEVISION PROGRAM DIRECTOR 09/17/2024 2:57 PM TELEVISION PROGRAM DIRECTOR us Elida Vigil DO LAB BLOOD ORDERABLES F inal Result [facility] [address] Department [place] [address] * (ABNORMAL) POCT glucose (09/17/2024 12:23 PM TELEVISION PROGRAM DIRECTOR) [facility] Glucose, POC 278(H) 70 - 199 mg/dL Comment: For Glucose values <35 mg/dl when Hematocrit is >60 mg/dl,the test may not accurately detect significant hypoglycemia,and testing in the Laboratory should be considered if clinically indicated. Blood 09/17/2024 12:2 3 PM TELEVISION PROGRAM DIRECTOR 09/17/2024 12:23 PM TELEVISION PROGRAM DIRECTOR Elida Vigil DO LAB POCT ORDERABLES - DEVICE Final Result Performing Organization Address [facility] de Phone Number [facility] [address] [facility] [place] [address] * (ABNORMAL) POCT glucose (09/17/2024 7:09 AM TELEVISION PROGRAM DIRECTOR) Glucose, POC 294(H) 70 - 199 mg/dL Comment: For Glucose values <35 mg/dl when Hematocrit is >60 mg/dl,the test may not accurately detect significant hypoglycemia,and testing in the Laboratory should be considered if clinically indicated. Blood 09/17/2024 7:09 AM TELEVISION PROGRAM DIRECTOR 09/17/2024 7:09 AM TELEVISION PROGRAM DIRECTOR Elida Vigil DO LAB POCT ORDERABLES - DEVICE Final Result Performing Organization Address [facility] de Phone Number [facility] [address] [facility] [place] [address] * (ABNORMAL) POCT glucose (09/17/2024 4:42 AM TELEVISION PROGRAM DIRECTOR) Glucose, POC 300(H) 70 - 199 mg/dL Comment: For Glucose values <35 mg/dl when Hematocrit is >60 mg/dl,the test may not accurately detect significant hypoglycemia,and testing in the Laboratory should be considered if clinically indicated. Blood 09/17/2024 4:42 AM TELEVISION PROGRAM DIRECTOR 09/17/2024 4:42 AM TELEVISION PROGRAM DIRECTOR Elida Vigil DO LAB POCT ORDERABLES - DEVICE Final Result Performing Organization Address [facility] de Phone Number [facility] [address] [place] [address] * (ABNORMAL) eGFR (09/17/2024 4:10 AM TELEVISION PROGRAM DIRECTOR) eGFR 36(L) >=60 mL/min/1. 73 m2 Comment: [...] last reviewed 2021. Blood 09/17/2024 4:10 AM TELEVISION PROGRAM DIRECTOR 09/17/2024 4:10 AM TELEVISION PROGRAM DIRECTOR us Elida Vigil DO LAB BLOOD ORDERABLES F inal Result Performing Organization Address City/[facility]/ZIP Co de Phone Number [facility] [address] [place] [address] * Thyroid Function Robertson (09/17/2024 4:10 AM TELEVISION PROGRAM DIRECTOR) TSH 1.79 0.30 - 4.20 mcIUnit/mL Blood 09/17/2024 4:10 AM TELEVISION PROGRAM DIRECTOR 09/17/2024 4:10 AM TELEVISION PROGRAM DIRECTOR Elida Winsome [employer] DO LAB BLOOD ORDERABLES F inal Result [facility] [address] Department [place] [address] * (ABNORMAL) CBC with auto differential (09/17/2024 4:10 AM TELEVISION PROGRAM DIRECTOR) [facility] WBC 7.1 3.8 - 9.9 K/cumm Hgb 8.7(L) 11.9 - 15.5 g/dL [facility] Hct 27.4(L) 35.6 - 45.5 % [facility] Plt 93(L) 150 - 400 K/cumm [facility] MPV 12.8(H) 9.1 - 12.3 fL [facility] RBC 3.03(L) 3.90 - 5.20 M/cumm [facility] MCV 90.4 81.3 - 96.4 fL [facility] MCH 28.7 27.1 - 33.3 pg [facility] MCHC 31.8(L) 32.3 - 35.7 g/dL [facility] RDW CV 14.6 11.1 - 14.9 % [facility] RDW SD 48.9(H) 35.7 - 48.1 fL [facility] NRBC abs 0.00 0.00 - 0.01 K/cumm [facility] Blood 09/17/2024 4:10 AM TELEVISION PROGRAM DIRECTOR 09/17/2024 4:10 AM TELEVISION PROGRAM DIRECTOR us Elida Vigil DO LAB BLOOD ORDERABLES F inal Result [facility] [address] Department [place] [address] * (ABNORMAL) Manual Differential (09/17/2024 4:10 AM TELEVISION PROGRAM DIRECTOR) [facility] Differential Manual Cells Counted 120 [facility] Neutrophil abs 5.9 1.5 - 6.5 K/cumm [facility] Imm gran abs 0.2(H) 0.0 - 0.1 K/cumm [facility] Lymphocyte abs 0.6(L) 0.8 - 3.3 K/cumm [facility] Monocyte abs 0.4 0.2 - 0.8 K/cumm [facility] Eosinophil abs 0.1 0.0 - 0.5 K/cumm [facility] Basophil abs 0.1 0.0 - 0.1 K/cumm [facility] Neutrophil pct 82.6 % [facility] Comment: Interpretive Data Percent cell count reference ranges are not reported, since discordance with absolute values may lead to misinterpretation of CBC data. Current Interpretive Data was last revised on 2017. Lymphocyte pct 8.3 % [facility] Comment: Interpretive Data Percent cell count reference ranges are not reported, since discordance with absolute values may lead to misinterpretation of CBC data. Current Interpretive Data was last revised on 2017. Monocyte pct 5.0 % [facility] Comment: Interpretive Data Percent cell count reference ranges are not reported, since discordance with absolute values may lead to misinterpretation of CBC data. Current Interpretive Data was last revised on 2017. Eosinophil pct 0.8 % [facility] Comment: Interpretive Data Percent cell count reference ranges are not reported, since discordance with absolute values may lead to misinterpretation of CBC data. Current Interpretive Data was last revised on 2017. Basophil pct 0.8 % [facility] Comment: Interpretive Data Percent cell count reference ranges are not reported, since discordance with absolute values may lead to misinterpretation of CBC data. Current Interpretive Data was last revised on 2017. Myelocyte pct 0.8(H) 0.0 - 0.0 % [facility] Promyelocyte pct 1.7(H) 0.0 - 0.0 % [facility] RBC morphology Present(A) [facility] Anisocytosis Slight(A) [facility] Morphology scrn See Comment [facility] Comment:PLT: Platelet morpho logy normal Blood 09/17/2024 4:10 AM TELEVISION PROGRAM DIRECTOR 09/17/2024 4:10 AM TELEVISION PROGRAM DIRECTOR us Elida Vigil DO LAB BLOOD ORDERABLES F inal Result [facility] [address] [place] [address] * (ABNORMAL) Phosphorus (09/17/2024 4:10 AM TELEVISION PROGRAM DIRECTOR) Phosphorus, pl 2.2(L) 2.3 - 4.5 mg/dL Blood 09/17/2024 4:10 AM TELEVISION PROGRAM DIRECTOR 09/17/2024 4:10 AM TELEVISION PROGRAM DIRECTOR Elida Vigil DO LAB BLOOD ORDERABLES F inal Result Performing Organization Address City/[facility] Co de Phone Number [facility] [address] [facility] [place] [address] * Magnesium (09/17/2024 4:10 AM TELEVISION PROGRAM DIRECTOR) Magnesium 2.3 1.4 - 2.5 mg/dL Blood 09/17/2024 4:10 AM TELEVISION PROGRAM DIRECTOR 09/17/2024 4:10 AM TELEVISION PROGRAM DIRECTOR Elida Schumacher Musa DO LAB BLOOD ORDERABLES F inal Result Performing Organization Address City/[facility] Co de Phone Number [facility] [address] [facility] [place] [address] * (ABNORMAL) Haptoglobin (09/17/2024 4:10 AM TELEVISION PROGRAM DIRECTOR) Haptoglobin 408(H) 30 - 200 mg/dL Blood 09/17/2024 4:10 AM TELEVISION PROGRAM DIRECTOR 09/17/2024 4:10 AM TELEVISION PROGRAM DIRECTOR Elida Verahenok BuddyBounce LAB BLOOD ORDERABLES F inal Result Performing Organization Address City/[facility] Co de Phone Number [facility] [address] [facility] [place] [address] * (ABNORMAL) Comprehensive metabolic panel (09/17/2024 4:10 AM TELEVISION PROGRAM DIRECTOR) Sodium 143 135 - 145 mmol/L Potassium, pl 2.8(L) 3.3 - 4.9 mmol/L [facility] Chloride 109 97 - 110 mmol/L [facility] CO2 21(L) 22 - 32 mmol/L [facility] Anion gap 13 2 - 15 mmol/L [facility] BUN 43(H) 6 - 25 mg/dL [facility] Creatinine 1.71(H) 0.60 - 1.10 mg/dL [facility] Glucose 288(H) 70 - 199 mg/dL [facility] Comment: Interpretive Data Fasting glucose >/= 126 [...] 2022. Calcium 7.9(L) 8.5 - 10.3 mg/dL [facility] Bilirubin, total 0.3 0.1 - 1.2 mg/dL [facility] Protein, pl 5.5(L) 6.5 - 8.5 g/dL [facility] Albumin 2.2(L) 3.5 - 5.0 g/dL [facility] Alk phos 115 40 - 130 Units/L [facility] ALT 18 7 - 45 Units/L [facility] AST 23 10 - 45 Units/L [facility] Blood 09/17/2024 4:10 AM TELEVISION PROGRAM DIRECTOR 09/17/2024 4:10 AM TELEVISION PROGRAM DIRECTOR us Elida Vigil DO LAB BLOOD ORDERABLES F inal Result [facility] [address] Department [place] [address] * XR Chest 1 View (09/17/2024 2:59 AM TELEVISION PROGRAM DIRECTOR) Anatomical Region Laterality Modality Body, Chest N/A Computed Radiogr aphy 09/17/2024 7:00 AM TELEVISION PROGRAM DIRECTOR Impressions 09/17/2024 7:00 AM TELEVISION PROGRAM DIRECTOR Comparison chest radiograph 09/16/2024. Endotracheal tube terminates 4 cm above the jessenia. Gastric tube courses along the esophagus and terminates below the diaphragm outside the [id number]. Small lung volumes. Similar-appearing patchy airspace opacity in left lower lung which may represent a pneumonia. Right lung is clear. No pleural effusion or pneumothorax. Heart size and mediastinal contours are stable. Electronically signed by: Teja Angeles MD, PHD Narrative 09/17/2024 7:00 AM TELEVISION PROGRAM DIRECTOR EXAMINATION: XR CHEST 1 VIEW Procedure Note Teja Angeles MD PhD - 09/17/2024 EXAMINATION: XR CHEST 1 VIEW IMPRESSION: Comparison chest radiograph 09/16/2024. Endotracheal tube terminates 4 cm above the jessenia. Gastric tube courses along the esophagus and terminates below the diaphragm outside the [id number]-[id number]-lyth. Small lung volumes. Similar-appearing patchy airspace opacity in left lower lung which may represent a pneumonia. Right lung is clear. No pleural effusion or pneumothorax. Heart size and mediastinal contours are stable. Electronically signed by: Teja Angeles MD, PHD Elida Vigil DO IMG XR PROCEDURES Salma l Result * (ABNORMAL) POCT glucose (09/16/2024 11:48 PM TELEVISION PROGRAM DIRECTOR) Glucose, POC 288(H) 70 - 199 mg/dL Comment: For Glucose values <35 mg/dl when Hematocrit is >60 mg/dl,the test may not accurately detect significant hypoglycemia,and testing in the Laboratory should be considered if clinically indicated. Blood 09/16/2024 11:4 8 PM TELEVISION PROGRAM DIRECTOR 09/16/2024 11:48 PM TELEVISION PROGRAM DIRECTOR us Elida Vigil DO LAB POCT ORDERABLES - DEVICE Final Result [facility] [address] [place] [address] * (ABNORMAL) POCT glucose (09/16/2024 8:12 PM TELEVISION PROGRAM DIRECTOR) Glucose, POC 265(H) 70 - 199 mg/dL Comment: For Glucose values <35 mg/dl when Hematocrit is >60 mg/dl,the test may not accurately detect significant hypoglycemia,and testing in the Laboratory should be considered if clinically indicated. Blood 09/16/2024 8:12 PM TELEVISION PROGRAM DIRECTOR 09/16/2024 8:12 PM TELEVISION PROGRAM DIRECTOR Elida Vigil DO LAB POCT ORDERABLES - DEVICE Final Result Performing Organization Address [facility] de Phone Number [facility] [address] [place] [address] * (ABNORMAL) POCT glucose (09/16/2024 4:04 PM TELEVISION PROGRAM DIRECTOR) Glucose, POC 310(H) 70 - 199 mg/dL Comment: For Glucose values <35 mg/dl when Hematocrit is >60 mg/dl,the test may not accurately detect significant hypoglycemia,and testing in the Laboratory should be considered if clinically indicated. Blood 09/16/2024 4:04 PM TELEVISION PROGRAM DIRECTOR 09/16/2024 4:04 PM TELEVISION PROGRAM DIRECTOR Elida Vigil DO LAB POCT ORDERABLES - DEVICE Final Result Performing Organization Address [facility] Co de Phone Number [facility] [address] [place] [address] * (ABNORMAL) POCT glucose (09/16/2024 12:27 PM TELEVISION PROGRAM DIRECTOR) Glucose, POC 271(H) 70 - 199 mg/dL Comment: For Glucose values <35 mg/dl when Hematocrit is >60 mg/dl,the test may not accurately detect significant hypoglycemia,and testing in the Laboratory should be considered if clinically indicated. Blood 09/16/2024 12:2 7 PM TELEVISION PROGRAM DIRECTOR 09/16/2024 12:27 PM TELEVISION PROGRAM DIRECTOR us Elida Schumacher Chuyhenok DO LAB POCT ORDERABLES - DEVICE Final Result [facility] [address] Department [place] [address] * US Vein Duplex Lower Extremity Bilateral Complete (09/16/2024 11:24 AM TELEVISION PROGRAM DIRECTOR) Anatomical Region Laterality Modality Vascular Bilateral Ultrasound 09/16/2024 3:48 PM TELEVISION PROGRAM DIRECTOR Impressions 09/16/2024 3:48 PM TELEVISION PROGRAM DIRECTOR 1. This study does not demonstrate evidence of deep vein thrombosis in the right lower extremity. None 2. This study does not demonstrate evidence of deep vein thrombosis in the left lower extremity. None 3. Note: Small isolated thrombi may be difficult to visualize, especially in the calf veins. Electronically signed by: Kwaku Tolentino M.D. Narrative 09/16/2024 3:48 PM TELEVISION PROGRAM DIRECTOR Lower Extremity Vein Duplex Bilateral DATE: 09/16/2024 [...] by: Kwaku Tolentino M.D. 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 Interpretive [...] organism identification may be performed using the [employer] Blood Culture Identification panel. This assay detects microbial DNA in a blood culture broth. This assay has been cleared by the [place] Food and Drug Administration and its performance characteristics have been verified by the [facility] Microbiology Laboratory. Interpretive data was last revised on September 11, 2022. us Elida Vigil DO LAB MICROBIOLOGY - GEN ERAL ORDERABLES Final Result [facility] [address] Department [place] [address] * Blood culture Blood (09/16/2024 8:45 AM TELEVISION PROGRAM DIRECTOR) Pathologist [facility] Report Final Report: No growth Blood 09/16/2024 8:45 AM TELEVISION PROGRAM DIRECTOR 09/16/2024 8:56 AM TELEVISION PROGRAM DIRECTOR Narrative [facility] - 09/21/2024 1:01 PM TELEVISION PROGRAM DIRECTOR Interpretive Data 1. Blood cultures are incubated and monitored continuously for 5 days (120 hours). The first negative report is issued within 24 hours of receipt in the laboratory. 2. All positive cultures are resulted and called to physicians/care providers as soon as they are detected. 3. A rapid molecular test for organism identification may be performed using the [employer] Blood Culture Identification panel. This assay detects microbial DNA in a blood culture broth. This assay has been cleared by the [place] Food and Drug Administration and its performance characteristics have been verified by the [facility] Microbiology Laboratory. Interpretive data was last revised on September 11, 2022. Elida Vigil DO LAB MICROBIOLOGY - GEN ERAL ORDERABLES Final Result [facility] [address] [place] [address] * (ABNORMAL) POCT glucose (09/16/2024 7:33 AM TELEVISION PROGRAM DIRECTOR) Pathologist [facility] Glucose, POC 232(H) 70 - 199 mg/dL Comment: For Glucose values <35 mg/dl when Hematocrit is >60 mg/dl,the test may not accurately detect significant hypoglycemia,and testing in the Laboratory should be considered if clinically indicated. Blood 09/16/2024 7:33 AM TELEVISION PROGRAM DIRECTOR 09/16/2024 7:33 AM TELEVISION PROGRAM DIRECTOR Flo Villagran MD LAB POCT ORDERABLES - DEVICE Final Result [facility] [address] [place] [address] * (ABNORMAL) CBC with auto differential (09/16/2024 5:30 AM TELEVISION PROGRAM DIRECTOR) [facility] WBC 5.4 3.8 - 9.9 K/cumm Hgb 8.6(L) 11.9 - 15.5 g/dL [facility] Hct 28.2(L) 35.6 - 45.5 % [facility] Plt 81(L) 150 - 400 K/cumm [facility] MPV 13.9(H) 9.1 - 12.3 fL [facility] RBC 3.01(L) 3.90 - 5.20 M/cumm [facility] MCV 93.7 81.3 - 96.4 fL [facility] MCH 28.6 27.1 - 33.3 pg [facility] MCHC 30.5(L) 32.3 - 35.7 g/dL [facility] RDW CV 14.9 11.1 - 14.9 % [facility] RDW SD 51.3(H) 35.7 - 48.1 fL [facility] NRBC abs 0.00 0.00 - 0.01 K/cumm [facility] Blood 09/16/2024 5:30 AM TELEVISION PROGRAM DIRECTOR 09/16/2024 5:39 AM TELEVISION PROGRAM DIRECTOR Flo Villagran MD LAB BLOOD ORDERABLES Final R esult [facility] [address] Department [place] [address] * (ABNORMAL) Manual Differential (09/16/2024 5:30 AM TELEVISION PROGRAM DIRECTOR) [facility] Differential Manual Cells Counted 116 [facility] Neutrophil abs 4.4 1.5 - 6.5 K/cumm [facility] Imm gran abs 0.0 0.0 - 0.1 K/cumm [facility] Lymphocyte abs 0.6(L) 0.8 - 3.3 K/cumm [facility] Monocyte abs 0.3 0.2 - 0.8 K/cumm [facility] Eosinophil abs 0.0 0.0 - 0.5 K/cumm [facility] Neutrophil pct 81.0 % [facility] Comment: Interpretive Data Percent cell count reference ranges are not reported, since discordance with absolute values may lead to misinterpretation of CBC data. Current Interpretive Data was last revised on 2017. Lymphocyte pct 12.1 % [facility] Comment: Interpretive Data Percent cell count reference ranges are not reported, since discordance with absolute values may lead to misinterpretation of CBC data. Current Interpretive Data was last revised on 2017. Monocyte pct 6.0 % [facility] Comment: Interpretive Data Percent cell count reference ranges are not reported, since discordance with absolute values may lead to misinterpretation of CBC data. Current Interpretive Data was last revised on 2017. Eosinophil pct 0.9 % [facility] Comment: Interpretive Data Percent cell count reference ranges are not reported, since discordance with absolute values may lead to misinterpretation of CBC data. Current Interpretive Data was last revised on 2017. RBC morphology Present(A) [facility] Hypochromasia 3-7/HPF(A) [facility] Anisocytosis Slight(A) [facility] Microcytes 3-7/HPF(A) [facility] Morphology scrn See Comment [facility] Comment:PLT: Giant platelets present Blood 09/16/2024 5:30 AM TELEVISION PROGRAM DIRECTOR 09/16/2024 5:39 AM TELEVISION PROGRAM DIRECTOR Flo Villagran MD LAB BLOOD ORDERABLES Final R esult [facility] [address] Department [place] [address] * POCT glucose (09/16/2024 5:23 AM TELEVISION PROGRAM DIRECTOR) Glucose, POC 178 70 - 199 mg/dL Comment: For Glucose values <35 mg/dl when Hematocrit is >60 mg/dl,the test may not accurately detect significant hypoglycemia,and testing in the Laboratory should be considered if clinically indicated. Blood 09/16/2024 5:23 AM TELEVISION PROGRAM DIRECTOR 09/16/2024 5:23 AM TELEVISION PROGRAM DIRECTOR us Flo Villagran MD LAB POCT ORDERABLES - DEVICE Final Result [facility] [address] Department [place] [address] * X-ray chest 1 view (09/16/2024 4:37 AM TELEVISION PROGRAM DIRECTOR) Anatomical Region Laterality Modality Body, Chest N/A Computed Radiogr aphy 09/16/2024 7:29 AM TELEVISION PROGRAM DIRECTOR Impressions 09/16/2024 7:29 AM TELEVISION PROGRAM DIRECTOR Endotracheal tube with tip approximately 3.6 cm superior to jessenia. Gastric tube extends inferior to the [id number] the study, below the GE junction. There are heterogeneous left mid lung and bibasilar lung opacities appear not significantly changed from prior. There is no pneumothorax or definite pleural effusion. Heart and mediastinum are unchanged. Electronically signed by: Abeba Castellano M.D. Narrative 09/16/2024 7:29 AM TELEVISION PROGRAM DIRECTOR EXAMINATION: 1 view chest radiograph COMPARISON: 09/15/2024 INDICATION: ET Tube For endotracheal tube position Procedure Note Abeba Castellano MD - 09/16/2024 EXAMINATION: 1 view chest radiograph COMPARISON: 09/15/2024 INDICATION: ET Tube For endotracheal tube position IMPRESSION: Endotracheal tube with tip approximately 3.6 cm superior to jessenia. Gastric tube extends inferior to the [id number]-tl-[id number] the study, below the GE junction. There are heterogeneous left mid lung and bibasilar lung opacities appear not significantly changed from prior. There is no pneumothorax or definite pleural effusion. Heart and mediastinum are unchanged. Electronically signed by: Abeba Castellano M.D. Flo Villagran MD IMG XR PROCEDURES Final Resu lt * (ABNORMAL) eGFR (09/16/2024 4:05 AM TELEVISION PROGRAM DIRECTOR) eGFR 33(L) >=60 mL/min/1. 73 m2 Comment: [...] last reviewed 2021. Blood 09/16/2024 4:05 AM TELEVISION PROGRAM DIRECTOR 09/16/2024 4:12 AM TELEVISION PROGRAM DIRECTOR Flo Villagran MD LAB BLOOD ORDERABLES Final R esult [facility] [address] Department [place] [address] * Blood culture Blood (09/16/2024 4:05 AM TELEVISION PROGRAM DIRECTOR) Report Final Report: No growth Blood 09/16/2024 4:05 AM TELEVISION PROGRAM DIRECTOR 09/16/2024 4:38 AM TELEVISION PROGRAM DIRECTOR Narrative [facility] - 09/21/2024 7:01 AM TELEVISION PROGRAM DIRECTOR Interpretive Data 1. Blood cultures are incubated and monitored continuously for 5 days (120 hours). The first negative report is issued within 24 hours of receipt in the laboratory. 2. All positive cultures are resulted and called to physicians/care providers as soon as they are detected. 3. A rapid molecular test for organism identification may be performed using the [employer] Blood Culture Identification panel. This assay detects microbial DNA in a blood culture broth. This assay has been cleared by the [place] Food and Drug Administration and its performance characteristics have been verified by the [facility] Microbiology Laboratory. Interpretive data was last revised on September 11, 2022. Flo Villagran MD LAB MICROBIOLOGY - GENERAL O RDERABLES Final Result Performing Organization Address [facility] Co de Phone Number [facility] [address] [facility] [place] [address] * (ABNORMAL) Triglycerides (09/16/2024 4:05 AM TELEVISION PROGRAM DIRECTOR) Triglycerides 876(H) <=149 mg/dL Comment: Interpretive Data [...] revised on 2018. Blood 09/16/2024 4:05 AM TELEVISION PROGRAM DIRECTOR 09/16/2024 4:05 AM TELEVISION PROGRAM DIRECTOR Flo Villagran MD LAB BLOOD ORDERABLES Final R esult Performing Organization Address [facility] Co de Phone Number [facility] [address] [facility] [place] [address] * Magnesium (09/16/2024 4:05 AM TELEVISION PROGRAM DIRECTOR) Magnesium 2.2 1.4 - 2.5 mg/dL Blood 09/16/2024 4:05 AM TELEVISION PROGRAM DIRECTOR 09/16/2024 4:12 AM TELEVISION PROGRAM DIRECTOR Flo Villagran MD LAB BLOOD ORDERABLES Final R esult Performing Organization Address [facility] Co de Phone Number [facility] [address] Department [place] [address] * (ABNORMAL) Renal function panel (09/16/2024 4:05 AM TELEVISION PROGRAM DIRECTOR) [facility] Sodium 139 135 - 145 mmol/L Potassium, pl 3.3 3.3 - 4.9 mmol/L [facility] Chloride 107 97 - 110 mmol/L [facility] CO2 19(L) 22 - 32 mmol/L [facility] Anion gap 13 2 - 15 mmol/L [facility] BUN 47(H) 6 - 25 mg/dL [facility] Creatinine 1.85(H) 0.60 - 1.10 mg/dL [facility] Glucose 137 70 - 199 mg/dL [facility] Comment: Interpretive Data Fasting glucose >/= 126 [...] 2022. Calcium 7.8(L) 8.5 - 10.3 mg/dL [facility] Phosphorus, pl 2.8 2.3 - 4.5 mg/dL [facility] Albumin 2.0(L) 3.5 - 5.0 g/dL [facility] Blood 09/16/2024 4:05 AM TELEVISION PROGRAM DIRECTOR 09/16/2024 4:12 AM TELEVISION PROGRAM DIRECTOR us Flo Villagran MD LAB BLOOD ORDERABLES Final R esult [facility] [address] Department [place] [address] * POCT glucose (09/16/2024 3:45 AM TELEVISION PROGRAM DIRECTOR) [facility] Glucose, POC 137 70 - 199 mg/dL Comment: For Glucose values <35 mg/dl when Hematocrit is >60 mg/dl,the test may not accurately detect significant hypoglycemia,and testing in the Laboratory should be considered if clinically indicated. Blood 09/16/2024 3:45 AM TELEVISION PROGRAM DIRECTOR 09/16/2024 3:45 AM TELEVISION PROGRAM DIRECTOR us Flo Villagran MD LAB POCT ORDERABLES - DEVICE Final Result [facility] [address] Department [place] [address] * MRI Brain WO Contrast (09/16/2024 1:48 AM TELEVISION PROGRAM DIRECTOR) Anatomical Region Laterality Modality Head and Neck N/A Magnetic Resonan ce 09/15/2024 10:4 0 PM TELEVISION PROGRAM DIRECTOR Impressions 09/16/2024 12:11 PM TELEVISION PROGRAM DIRECTOR No acute intracranial abnormality seen given motion limitations. For the purposes of quality supervisor, this study was initially interpreted by teleradiology. There is no significant discrepancy. Dictated by: Hugh Zelaya M.D. The radiology attending physician has personally reviewed this study, and had reviewed and/or edited this written report and agrees with it. Electronically signed by: Matthew Alonso MD, PHD Narrative 09/16/2024 12:11 PM TELEVISION PROGRAM DIRECTOR EXAMINATION: Magnetic resonance imaging (MRI) of the [...] motion limitations. For the purposes of quality supervisor, this study was initially interpreted by teleradiology. There is no significant discrepancy. Dictated by: Hugh eZlaya M.D. The radiology attending physician has personally reviewed this study, and had reviewed and/or edited this written report and agrees with it. Electronically signed by: Matthew Alonso MD, PHD Flo Villagran MD IM MRI PROCEDURES Final Res ult * POCT glucose (09/16/2024 1:06 AM TELEVISION PROGRAM DIRECTOR) Glucose, POC 156 70 - 199 mg/dL Comment: For Glucose values <35 mg/dl when Hematocrit is >60 mg/dl,the test may not accurately detect significant hypoglycemia,and testing in the Laboratory should be considered if clinically indicated. Blood 09/16/2024 1:06 AM TELEVISION PROGRAM DIRECTOR 09/16/2024 1:06 AM TELEVISION PROGRAM DIRECTOR Flo Villagran MD LAB POCT ORDERABLES - DEVICE Final Result Performing Organization Address [facility] de Phone Number [facility] [address] [facility] [place] [address] * POCT glucose (09/16/2024 12:01 AM TELEVISION PROGRAM DIRECTOR) Glucose, POC 155 70 - 199 mg/dL Comment: For Glucose values <35 mg/dl when Hematocrit is >60 mg/dl,the test may not accurately detect significant hypoglycemia,and testing in the Laboratory should be considered if clinically indicated. Blood 09/16/2024 12:0 1 AM TELEVISION PROGRAM DIRECTOR 09/16/2024 12:01 AM TELEVISION PROGRAM DIRECTOR Flo Villagran MD LAB POCT ORDERABLES - DEVICE Final Result Performing Organization Address [facility] [facility] [place] de Phone Number [facility] [address] [facility] [place] [address] * POCT glucose (09/15/2024 9:09 PM TELEVISION PROGRAM DIRECTOR) Glucose, POC 166 70 - 199 mg/dL Comment: For Glucose values <35 mg/dl when Hematocrit is >60 mg/dl,the test may not accurately detect significant hypoglycemia,and testing in the Laboratory should be considered if clinically indicated. Blood 09/15/2024 9:09 PM TELEVISION PROGRAM DIRECTOR 09/15/2024 9:09 PM TELEVISION PROGRAM DIRECTOR Flo Villagran MD LAB POCT ORDERABLES - DEVICE Final Result Performing Organization Address [facility] de Phone Number [facility] [address] [facility] [place] [address] * POCT glucose (09/15/2024 7:41 PM TELEVISION PROGRAM DIRECTOR) Glucose, POC 140 70 - 199 mg/dL Comment: For Glucose values <35 mg/dl when Hematocrit is >60 mg/dl,the test may not accurately detect significant hypoglycemia,and testing in the Laboratory should be considered if clinically indicated. Blood 09/15/2024 7:41 PM TELEVISION PROGRAM DIRECTOR 09/15/2024 7:41 PM TELEVISION PROGRAM DIRECTOR Flo Villagran MD LAB POCT ORDERABLES - DEVICE Final Result Performing Organization Address [facility] de Phone Number [facility] [address] [facility] [place] [address] * POCT glucose (09/15/2024 5:12 PM TELEVISION PROGRAM DIRECTOR) Glucose, POC 140 70 - 199 mg/dL Comment: For Glucose values <35 mg/dl when Hematocrit is >60 mg/dl,the test may not accurately detect significant hypoglycemia,and testing in the Laboratory should be considered if clinically indicated. Blood 09/15/2024 5:12 PM TELEVISION PROGRAM DIRECTOR 09/15/2024 5:12 PM TELEVISION PROGRAM DIRECTOR Result [facility] Flo Villagran MD LAB POCT ORDERABLES - DEVICE Final Result Performing Organization Address [facility] [place] de Phone Number [facility] [address] [facility] [place] [address] * POCT glucose (09/15/2024 3:05 PM TELEVISION PROGRAM DIRECTOR) Glucose, POC 117 70 - 199 mg/dL Comment: For Glucose values <35 mg/dl when Hematocrit is >60 mg/dl,the test may not accurately detect significant hypoglycemia,and testing in the Laboratory should be considered if clinically indicated. Blood 09/15/2024 3:05 PM TELEVISION PROGRAM DIRECTOR 09/15/2024 3:05 PM TELEVISION PROGRAM DIRECTOR Flo Villagran MD LAB POCT ORDERABLES - DEVICE Final Result Performing Organization Address [facility] Co de Phone Number [facility] [address] [facility] [place] [address] * (ABNORMAL) Aerobic culture and gram stain Sputum Sputum (09/15/2024 1:57 PM TELEVISION PROGRAM DIRECTOR) Direct Specimen Exam Stain: Moderate polymorphonuclear leukocytes seen. Many Gram Positive Cocci Report Final Report: Heavy growth of: Staphylococcus aureus, methicillin susceptible Light growth normal sukhdev (.) [facility] Organism STAPHYLOCOCCUS AUREUS, METHICILLIN SUSCEPTIBLE [facility] Sputum (Sputum) 09/15/2024 1 :57 PM TELEVISION PROGRAM DIRECTOR 09/15/2024 2:10 PM TELEVISION PROGRAM DIRECTOR Narrative Organism Antibiotic Method Susceptibility Staphylococcus aureus, [...] MICROBIOLOGY - GENERAL O RDERABLES Final Result [facility] [address] Department [place] [address] * TRANSESOPHAGEAL ECHO (DEMI) W DOPPLER/CF WO CONTRAST (09/15/2024 1:43 PM TELEVISION PROGRAM DIRECTOR) Pathologist [facility] LV EF 55-60 % CONS SCIMAGE Anatomical Region Laterality Modality Ultrasound 09/15/2024 12:4 5 PM TELEVISION PROGRAM DIRECTOR Narrative 09/15/2024 5:05 PM TELEVISION PROGRAM DIRECTOR [facility] [place] [address] [place] [address] TRANSESOPHAGEAL ECHOCARDIOGRAM Patient Name: BROOKE MARSHALL : 1975 (48y 8m) Gender: F Study Date: 09/15/2024 12:45:30 PM Ht(Inch): 65 Wt(Lb): 202.01 BSA: 2.05 Pipe Coverer: Location: [id number] Order Provider: NILSON DUBOSE BMI: 33.61 BP: [...] intracardiac vegetation. Electronically Signed By: Nilson Dubose [facility] Card 09/15/2024 5:05:10 PM TELEVISION PROGRAM DIRECTOR Procedure Note Nilson Dubose MD - 09/15/2024 [facility] [address] [place] [address] TRANSESOPHAGEAL ECHOCARDIOGRAM Patient Name: BROOKE MARSHALL : 1975 (48y 8m) Gender: F Study Date: 09/15/2024 12:45:30 PM Ht(Inch): 65 Wt(Lb): 202.01 BSA: 2.05 Pipe Coverer: Location: [id number] Order Provider: NILSON DUBOSE BMI: 33.61 BP: 138/71 Ref Provider: NILSON DUBOES - PROCEDURES: Transesophageal Echo Report: Transesophageal echocardiogram [...] intracardiac vegetation. Electronically Signed By: Nilson Dubose [facility] Card 09/15/2024 5:05:10 PM TELEVISION PROGRAM DIRECTOR Nilson Dubose MD CV ECHO PROCEDURES Final Result * POCT glucose (09/15/2024 1:05 PM TELEVISION PROGRAM DIRECTOR) [facility] Glucose, POC 151 70 - 199 mg/dL Comment: For Glucose values <35 mg/dl when Hematocrit is >60 mg/dl,the test may not accurately detect significant hypoglycemia,and testing in the Laboratory should be considered if clinically indicated. Blood 09/15/2024 1:05 PM TELEVISION PROGRAM DIRECTOR 09/15/2024 1:05 PM TELEVISION PROGRAM DIRECTOR us Flo Villagran MD LAB POCT ORDERABLES - DEVICE Final Result [facility] [address] [place] [address] * X-ray chest 1 view (09/15/2024 11:41 AM TELEVISION PROGRAM DIRECTOR) Anatomical Region Laterality Modality Body, Chest N/A Computed Radiogr aphy 09/15/2024 12:0 0 PM TELEVISION PROGRAM DIRECTOR Addenda Addendum by Cira Mancilla MD on 09/15/2024 1:17 PM TELEVISION PROGRAM DIRECTOR Communicated to Dr. Villagran who confirmed that the tube has been pulled back. Dr. Mancilla on 09/15/2024 at 1:15pm. Electronically signed by: Cira Mancilla M.D. Impressions 09/15/2024 12:00 PM TELEVISION PROGRAM DIRECTOR FINDINGS and IMPRESSION: Endotracheal tube terminates in the right bronchus, recommend withdrawal by about 6 cm. Feeding tube courses below the imaged [id number], past the GE junction. Increased airspace opacities in the left lung and increased prominence of right upper perihilar airspace opacities may represent progressive pneumonia, to be correlated clinically. Electronically signed by: Cira Mancilla M.D. Narrative 09/15/2024 12:00 PM TELEVISION PROGRAM DIRECTOR EXAMINATION: XR CHEST 1 VIEW COMPARISON: 09/15/2024 HISTORY: For endotracheal tube position Procedure Note Cira Mancilla MD - 09/15/2024 EXAMINATION: XR CHEST 1 VIEW COMPARISON: 09/15/2024 HISTORY: For endotracheal tube position IMPRESSION: FINDINGS and IMPRESSION: Endotracheal tube terminates in the right bronchus, recommend withdrawal by about 6 cm. Feeding tube courses below the imaged [id number], past the GE junction. Increased airspace opacities in the left lung and increased prominence of right upper perihilar airspace opacities may represent progressive pneumonia, to be correlated clinically. Electronically signed by: Cira Mancilla M.D. Flo Villagran MD IMG XR PROCEDURES Edited Res ult - Final * (ABNORMAL) Blood gas, arterial (09/15/2024 11:34 AM TELEVISION PROGRAM DIRECTOR) pH, Art 7.32(L) 7.35 - 7.45 PCO2, Arterial 48(H) 35 - 45 mmHg [facility] PO2, Arterial 264(H) 83 - 108 mmHg [facility] HCO3 Art (Calculated) 25 20 - 30 mmol/L [facility] BE, art -2 mmol/L [facility] Comment: Interpretive Data No Reference Range Established Current Interpretive Data was last revised on 2017 O2 Sat Art (Calculated) 100(H) 94 - 98 % [facility] Blood 09/15/2024 11:3 4 AM TELEVISION PROGRAM DIRECTOR 09/15/2024 11:36 AM TELEVISION PROGRAM DIRECTOR us Flo Villagran MD LAB BLOOD ORDERABLES Final R esult Performing Organization Address [facility]/ZIP Co de Phone Number [facility] [address] Department [place] [address] * POCT glucose (09/15/2024 11:07 AM TELEVISION PROGRAM DIRECTOR) [facility] Signature Glucose, POC 183 70 - 199 mg/dL Comment: For Glucose values <35 mg/dl when Hematocrit is >60 mg/dl,the test may not accurately detect significant hypoglycemia,and testing in the Laboratory should be considered if clinically indicated. Blood 09/15/2024 11:0 7 AM TELEVISION PROGRAM DIRECTOR 09/15/2024 11:07 AM TELEVISION PROGRAM DIRECTOR us Flo Villagran MD LAB POCT ORDERABLES - DEVICE Final Result Performing Organization Address [facility] Co de Phone Number [facility] [address] Department [place] [address] * INTUBATION (09/15/2024 10:31 AM TELEVISION PROGRAM DIRECTOR) Narrative Flo Villagran MD - 09/15/2024 10:31 AM TELEVISION PROGRAM DIRECTOR Flo Villagran MD 09/15/2024 11:11 AM Intubation [...] * (ABNORMAL) POCT glucose (09/15/2024 9:16 AM TELEVISION PROGRAM DIRECTOR) Glucose, POC 200(H) 70 - 199 mg/dL Comment: For Glucose values <35 mg/dl when Hematocrit is >60 mg/dl,the test may not accurately detect significant hypoglycemia,and testing in the Laboratory should be considered if clinically indicated. Blood 09/15/2024 9:16 AM TELEVISION PROGRAM DIRECTOR 09/15/2024 9:16 AM TELEVISION PROGRAM DIRECTOR Flo Villagran MD LAB POCT ORDERABLES - DEVICE Final Result Performing Organization Address [facility] Co de Phone Number [facility] [address] [facility] [employer] [place], [place] [id number] * POCT glucose (09/15/2024 7:06 AM TELEVISION PROGRAM DIRECTOR) Glucose, POC 186 70 - 199 mg/dL Comment: For Glucose values <35 mg/dl when Hematocrit is >60 mg/dl,the test may not accurately detect significant hypoglycemia,and testing in the Laboratory should be considered if clinically indicated. Blood 09/15/2024 7:06 AM TELEVISION PROGRAM DIRECTOR 09/15/2024 7:06 AM TELEVISION PROGRAM DIRECTOR Flo Villagran MD LAB POCT ORDERABLES - DEVICE Final Result Performing Organization Address [facility] Co de Phone Number [facility] [address] [facility] [place] [address] * POCT glucose (09/15/2024 5:27 AM TELEVISION PROGRAM DIRECTOR) Glucose, POC 187 70 - 199 mg/dL Comment: For Glucose values <35 mg/dl when Hematocrit is >60 mg/dl,the test may not accurately detect significant hypoglycemia,and testing in the Laboratory should be considered if clinically indicated. Blood 09/15/2024 5:27 AM TELEVISION PROGRAM DIRECTOR 09/15/2024 5:27 AM TELEVISION PROGRAM DIRECTOR Flo Villagran MD LAB POCT ORDERABLES - DEVICE Final Result Performing Organization Address [facility] Co de Phone Number [facility] [address] [facility] [place] [address] * POCT glucose (09/15/2024 3:51 AM TELEVISION PROGRAM DIRECTOR) Glucose, POC 189 70 - 199 mg/dL Comment: For Glucose values <35 mg/dl when Hematocrit is >60 mg/dl,the test may not accurately detect significant hypoglycemia,and testing in the Laboratory should be considered if clinically indicated. Blood 09/15/2024 3:51 AM TELEVISION PROGRAM DIRECTOR 09/15/2024 3:51 AM TELEVISION PROGRAM DIRECTOR us Flo Villagran MD LAB POCT ORDERABLES - DEVICE Final Result Performing Organization Address [facility] [place] de Phone Number [facility] [address] [facility] [place] [address] * (ABNORMAL) aPTT (09/15/2024 3:48 AM TELEVISION PROGRAM DIRECTOR) aPTT 49(H) 28 - 38 sec Comment: Interpretive Data Heparin therapeutic range: 66.0 - 100.0 seconds. Range based on correlation with therapeutic heparin activity range of 0.3 - 0.7 Units/mL. Current interpretive data was last revised on 2023. Blood 09/15/2024 3:48 AM TELEVISION PROGRAM DIRECTOR 09/15/2024 3:52 AM TELEVISION PROGRAM DIRECTOR us Abeba Ash MD LAB BLOOD ORDERABLES Final R esult Performing Organization Address [facility] de Phone Number [facility] [address] [facility] [place] [address] * XR Chest 1 View (09/15/2024 3:41 AM TELEVISION PROGRAM DIRECTOR) Anatomical Region Laterality Modality Body, Chest N/A Computed Radiogr aphy 09/15/2024 7:33 AM TELEVISION PROGRAM DIRECTOR Impressions 09/15/2024 7:33 AM TELEVISION PROGRAM DIRECTOR Comparison is made to 09/14/2024. A nasogastric tube tip is located with diaphragm, not included [id number]. There is slightly improving aeration within the left midlung and lung base which may represent improving pneumonia. The right mid to upper lung there is a persistent area of nodular consolidation which is favored to be infectious as well. No pleural effusion. No pneumothorax. Stable heart size. Electronically signed by: Ruiz Coles M.D. Narrative 09/15/2024 7:33 AM TELEVISION PROGRAM DIRECTOR Examination: Chest 1 view Procedure Note Ruiz Coles MD - 09/15/2024 Examination: Chest 1 view IMPRESSION: Comparison is made to 09/14/2024. A nasogastric tube tip is located with diaphragm, not included [id number]. There is slightly improving aeration within the [...] lt * (ABNORMAL) eGFR (09/15/2024 1:50 AM TELEVISION PROGRAM DIRECTOR) eGFR 40(L) >=60 mL/min/1. 73 m2 Comment: [...] last reviewed 2021. Blood 09/15/2024 1:50 AM TELEVISION PROGRAM DIRECTOR 09/15/2024 2:27 AM TELEVISION PROGRAM DIRECTOR Flo Villagran MD LAB BLOOD ORDERABLES Final R esult Performing Organization Address City/[facility]/ZIP Co de Phone Number [facility] [address] [place] [address] * (ABNORMAL) CBC without differential (09/15/2024 1:50 AM TELEVISION PROGRAM DIRECTOR) WBC 5.0 3.8 - 9.9 K/cumm Hgb 9.9(L) 11.9 - 15.5 g/dL [facility] Hct 31.5(L) 35.6 - 45.5 % [facility] Plt 67(L) 150 - 400 K/cumm [facility] Comment:Automated count conf irmed by smear review. MPV 13.3(H) 9.1 - 12.3 fL [facility] RBC 3.39(L) 3.90 - 5.20 M/cumm [facility] MCV 92.9 81.3 - 96.4 fL [facility] MCH 29.2 27.1 - 33.3 pg [facility] MCHC 31.4(L) 32.3 - 35.7 g/dL [facility] RDW CV 15.0(H) 11.1 - 14.9 % [facility] RDW SD 51.5(H) 35.7 - 48.1 fL [facility] NRBC abs 0.00 0.00 - 0.01 K/cumm [facility] Blood 09/15/2024 1:50 AM TELEVISION PROGRAM DIRECTOR 09/15/2024 2:27 AM TELEVISION PROGRAM DIRECTOR Flo Villagran MD LAB BLOOD ORDERABLES Final R esult Performing Organization Address City/[facility]/ZIP Co de Phone Number [facility] [address] [place] [address] * (ABNORMAL) Phosphorus (09/15/2024 1:50 AM TELEVISION PROGRAM DIRECTOR) Pathologist [facility] Phosphorus, pl 1.7(L) 2.3 - 4.5 mg/dL Blood 09/15/2024 1:50 AM TELEVISION PROGRAM DIRECTOR 09/15/2024 2:27 AM TELEVISION PROGRAM DIRECTOR Flo Villagran MD LAB BLOOD ORDERABLES Final R esult Performing Organization Address City/[facility]/ZIP Co de Phone Number [facility] [address] [facility] [place] [address] * Magnesium (09/15/2024 1:50 AM TELEVISION PROGRAM DIRECTOR) Pathologist [facility] Magnesium 2.4 1.4 - 2.5 mg/dL Comment:Reviewed Blood 09/15/2024 1:50 AM TELEVISION PROGRAM DIRECTOR 09/15/2024 2:27 AM TELEVISION PROGRAM DIRECTOR Flo Villagran MD LAB BLOOD ORDERABLES Final R esult Performing Organization Address [facility] Co de Phone Number [facility] [address] [facility] [place] [address] * Bilirubin, direct (09/15/2024 1:50 AM TELEVISION PROGRAM DIRECTOR) Pathologist [facility] Bilirubin, direct 0.3 0.1 - 0.3 mg/dL Blood 09/15/2024 1:50 AM TELEVISION PROGRAM DIRECTOR 09/15/2024 2:27 AM TELEVISION PROGRAM DIRECTOR Flo Villagran MD LAB BLOOD ORDERABLES Final R esult Performing Organization Address [facility] Co de Phone Number [facility] [address] [facility] [place] [address] * (ABNORMAL) Comprehensive metabolic panel (09/15/2024 1:50 AM TELEVISION PROGRAM DIRECTOR) Pathologist [facility] Sodium 147(H) 135 - 145 mmol/L Potassium, pl 3.1(L) 3.3 - 4.9 mmol/L [facility] Chloride 110 97 - 110 mmol/L [facility] CO2 24 22 - 32 mmol/L [facility] Anion gap 13 2 - 15 mmol/L [facility] BUN 44(H) 6 - 25 mg/dL [facility] Creatinine 1.56(H) 0.60 - 1.10 mg/dL [facility] Glucose 179 70 - 199 mg/dL [facility] Comment: Interpretive Data Fasting glucose >/= 126 [...] 2022. Calcium 8.5 8.5 - 10.3 mg/dL [facility] Bilirubin, total 0.5 0.1 - 1.2 mg/dL [facility] Protein, pl 5.6(L) 6.5 - 8.5 g/dL [facility] Albumin 2.4(L) 3.5 - 5.0 g/dL [facility] Alk phos 77 40 - 130 Units/L [facility] ALT 23 7 - 45 Units/L [facility] AST 35 10 - 45 Units/L [facility] Blood 09/15/2024 1:50 AM TELEVISION PROGRAM DIRECTOR 09/15/2024 2:27 AM TELEVISION PROGRAM DIRECTOR us Flo Villagran MD LAB BLOOD ORDERABLES Final R esult [facility] [address] Department [place] [address] * POCT glucose (09/15/2024 12:53 AM TELEVISION PROGRAM DIRECTOR) [facility] Glucose, POC 166 70 - 199 mg/dL Comment: For Glucose values <35 mg/dl when Hematocrit is >60 mg/dl,the test may not accurately detect significant hypoglycemia,and testing in the Laboratory should be considered if clinically indicated. Blood 09/15/2024 12:5 3 AM TELEVISION PROGRAM DIRECTOR 09/15/2024 12:53 AM TELEVISION PROGRAM DIRECTOR Flo Villagran MD LAB POCT ORDERABLES - DEVICE Final Result Performing Organization Address [facility] Co de Phone Number [facility] [address] Department [place] [address] * POCT glucose (09/14/2024 11:15 PM TELEVISION PROGRAM DIRECTOR) Glucose, POC 178 70 - 199 mg/dL Comment: For Glucose values <35 mg/dl when Hematocrit is >60 mg/dl,the test may not accurately detect significant hypoglycemia,and testing in the Laboratory should be considered if clinically indicated. Blood 09/14/2024 11:1 5 PM TELEVISION PROGRAM DIRECTOR 09/14/2024 11:15 PM TELEVISION PROGRAM DIRECTOR Flo Villagran MD LAB POCT ORDERABLES - DEVICE Final Result Performing Organization Address [facility] Co de Phone Number [facility] [address] Department [place] [address] * (ABNORMAL) aPTT (09/14/2024 9:19 PM TELEVISION PROGRAM DIRECTOR) aPTT 57(H) 28 - 38 sec Comment: Interpretive Data Heparin therapeutic range: 66.0 - 100.0 seconds. Range based on correlation with therapeutic heparin activity range of 0.3 - 0.7 Units/mL. Current interpretive data was last revised on 2023. Blood 09/14/2024 9:19 PM TELEVISION PROGRAM DIRECTOR 09/14/2024 9:19 PM TELEVISION PROGRAM DIRECTOR Flo Villagran MD LAB BLOOD ORDERABLES Final R esult Performing Organization Address [facility] Co de Phone Number [facility] [address] [facility] [place] [address] * POCT glucose (09/14/2024 9:16 PM TELEVISION PROGRAM DIRECTOR) Glucose, POC 162 70 - 199 mg/dL Comment: For Glucose values <35 mg/dl when Hematocrit is >60 mg/dl,the test may not accurately detect significant hypoglycemia,and testing in the Laboratory should be considered if clinically indicated. Blood 09/14/2024 9:16 PM TELEVISION PROGRAM DIRECTOR 09/14/2024 9:16 PM TELEVISION PROGRAM DIRECTOR Flo Villagran MD LAB POCT ORDERABLES - DEVICE Final Result Performing Organization Address [facility] Co de Phone Number [facility] [address] [facility] [place] [address] * POCT glucose (09/14/2024 7:20 PM TELEVISION PROGRAM DIRECTOR) Glucose, POC 171 70 - 199 mg/dL Comment: For Glucose values <35 mg/dl when Hematocrit is >60 mg/dl,the test may not accurately detect significant hypoglycemia,and testing in the Laboratory should be considered if clinically indicated. Blood 09/14/2024 7:20 PM TELEVISION PROGRAM DIRECTOR 09/14/2024 7:20 PM TELEVISION PROGRAM DIRECTOR Flo Villagran MD LAB POCT ORDERABLES - DEVICE Final Result Performing Organization Address [facility] Co de Phone Number [facility] [address] [facility] [place] [address] * POCT glucose (09/14/2024 6:16 PM TELEVISION PROGRAM DIRECTOR) Glucose, POC 183 70 - 199 mg/dL Comment: For Glucose values <35 mg/dl when Hematocrit is >60 mg/dl,the test may not accurately detect significant hypoglycemia,and testing in the Laboratory should be considered if clinically indicated. Blood 09/14/2024 6:16 PM TELEVISION PROGRAM DIRECTOR 09/14/2024 6:16 PM TELEVISION PROGRAM DIRECTOR Flo Villagran MD LAB POCT ORDERABLES - DEVICE Final Result Performing Organization Address [facility] de Phone Number [facility] [address] [facility] [place] [address] * POCT glucose (09/14/2024 4:55 PM TELEVISION PROGRAM DIRECTOR) Glucose, POC 186 70 - 199 mg/dL Comment: For Glucose values <35 mg/dl when Hematocrit is >60 mg/dl,the test may not accurately detect significant hypoglycemia,and testing in the Laboratory should be considered if clinically indicated. Blood 09/14/2024 4:55 PM TELEVISION PROGRAM DIRECTOR 09/14/2024 4:55 PM TELEVISION PROGRAM DIRECTOR Flo Villagran MD LAB POCT ORDERABLES - DEVICE Final Result Performing Organization Address [facility] de Phone Number [facility] [address] [facility] [place] [address] * POCT glucose (09/14/2024 4:10 PM TELEVISION PROGRAM DIRECTOR) Glucose, POC 179 70 - 199 mg/dL Comment: For Glucose values <35 mg/dl when Hematocrit is >60 mg/dl,the test may not accurately detect significant hypoglycemia,and testing in the Laboratory should be considered if clinically indicated. Blood 09/14/2024 4:10 PM TELEVISION PROGRAM DIRECTOR 09/14/2024 4:10 PM TELEVISION PROGRAM DIRECTOR Flo Villagran MD LAB POCT ORDERABLES - DEVICE Final Result Performing Organization Address [facility] de Phone Number [facility] [address] [facility] [employer] [place], [place] [phone] * POCT glucose (09/14/2024 3:03 PM TELEVISION PROGRAM DIRECTOR) Glucose, POC 179 70 - 199 mg/dL Comment: For Glucose values <35 mg/dl when Hematocrit is >60 mg/dl,the test may not accurately detect significant hypoglycemia,and testing in the Laboratory should be considered if clinically indicated. Blood 09/14/2024 3:03 PM TELEVISION PROGRAM DIRECTOR 09/14/2024 3:03 PM TELEVISION PROGRAM DIRECTOR Flo Villagran MD LAB POCT ORDERABLES - DEVICE Final Result Performing Organization Address [facility] Co de Phone Number [facility] [address] [employer] [place], [place] [phone] * (ABNORMAL) eGFR (09/14/2024 1:05 PM TELEVISION PROGRAM DIRECTOR) eGFR 41(L) >=60 mL/min/1. 73 m2 Comment: [...] last reviewed 2021. Blood 09/14/2024 1:05 PM TELEVISION PROGRAM DIRECTOR 09/14/2024 1:20 PM TELEVISION PROGRAM DIRECTOR Flo Villagran MD LAB BLOOD ORDERABLES Final R esult Performing Organization Address [facility]/ZIP Co de Phone Number [facility] [address] Department [employer] [place], [place] [phone] * (ABNORMAL) aPTT (09/14/2024 1:05 PM TELEVISION PROGRAM DIRECTOR) aPTT 112(H) 28 - 38 sec Comment: Interpretive Data Heparin therapeutic range: 66.0 - 100.0 seconds. Range based on correlation with therapeutic heparin activity range of 0.3 - 0.7 Units/mL. Current interpretive data was last revised on 2023. Blood 09/14/2024 1:05 PM TELEVISION PROGRAM DIRECTOR 09/14/2024 1:19 PM TELEVISION PROGRAM DIRECTOR Flo Villagran MD LAB BLOOD ORDERABLES Final R esult [facility] [address] Department [place] [address] * (ABNORMAL) Renal function panel (09/14/2024 1:05 PM TELEVISION PROGRAM DIRECTOR) Pathologist [facility] Sodium 152(H) 135 - 145 mmol/L Potassium, pl 3.3 3.3 - 4.9 mmol/L [facility] Chloride 115(H) 97 - 110 mmol/L [facility] CO2 25 22 - 32 mmol/L [facility] Anion gap 12 2 - 15 mmol/L [facility] BUN 45(H) 6 - 25 mg/dL [facility] Creatinine 1.54(H) 0.60 - 1.10 mg/dL [facility] Glucose 177 70 - 199 mg/dL [facility] Comment: Interpretive Data Fasting glucose >/= 126 [...] 2022. Calcium 8.8 8.5 - 10.3 mg/dL [facility] Phosphorus, pl 2.6 2.3 - 4.5 mg/dL [facility] Albumin 2.5(L) 3.5 - 5.0 g/dL [facility] Blood 09/14/2024 1:05 PM TELEVISION PROGRAM DIRECTOR 09/14/2024 1:20 PM TELEVISION PROGRAM DIRECTOR Flo Villagran MD LAB BLOOD ORDERABLES Final R esult Performing Organization Address [facility] Co de Phone Number [facility] [address] Department [place] [address] * POCT glucose (09/14/2024 12:55 PM TELEVISION PROGRAM DIRECTOR) Glucose, POC 168 70 - 199 mg/dL Comment: For Glucose values <35 mg/dl when Hematocrit is >60 mg/dl,the test may not accurately detect significant hypoglycemia,and testing in the Laboratory should be considered if clinically indicated. Blood 09/14/2024 12:5 5 PM TELEVISION PROGRAM DIRECTOR 09/14/2024 12:55 PM TELEVISION PROGRAM DIRECTOR Flo Villagran MD LAB POCT ORDERABLES - DEVICE Final Result Performing Organization Address [facility] de Phone Number [facility] [address] [facility] [place] [address] * POCT glucose (09/14/2024 12:01 PM TELEVISION PROGRAM DIRECTOR) Glucose, POC 170 70 - 199 mg/dL Comment: For Glucose values <35 mg/dl when Hematocrit is >60 mg/dl,the test may not accurately detect significant hypoglycemia,and testing in the Laboratory should be considered if clinically indicated. Blood 09/14/2024 12:0 1 PM TELEVISION PROGRAM DIRECTOR 09/14/2024 12:01 PM TELEVISION PROGRAM DIRECTOR Flo Villagran MD LAB POCT ORDERABLES - DEVICE Final Result Performing Organization Address [facility] Co de Phone Number [facility] [address] Department [place] [address] * POCT glucose (09/14/2024 11:05 AM TELEVISION PROGRAM DIRECTOR) Glucose, POC 188 70 - 199 mg/dL Comment: For Glucose values <35 mg/dl when Hematocrit is >60 mg/dl,the test may not accurately detect significant hypoglycemia,and testing in the Laboratory should be considered if clinically indicated. Blood 09/14/2024 11:0 5 AM TELEVISION PROGRAM DIRECTOR 09/14/2024 11:05 AM TELEVISION PROGRAM DIRECTOR Flo Villagran MD LAB POCT ORDERABLES - DEVICE Final Result Performing Organization Address [facility]/ZIP Co de Phone Number [facility] [address] Department [place] [address] * POCT glucose (09/14/2024 10:04 AM TELEVISION PROGRAM DIRECTOR) [facility] Glucose, POC 195 70 - 199 mg/dL Comment: For Glucose values <35 mg/dl when Hematocrit is >60 mg/dl,the test may not accurately detect significant hypoglycemia,and testing in the Laboratory should be considered if clinically indicated. Blood 09/14/2024 10:0 4 AM TELEVISION PROGRAM DIRECTOR 09/14/2024 10:04 AM TELEVISION PROGRAM DIRECTOR Flo Villagran MD LAB POCT ORDERABLES - DEVICE Final Result Performing Organization Address [facility] Co de Phone Number [facility] [address] Department [place] [address] * (ABNORMAL) Blood culture Blood (09/14/2024 9:42 AM TELEVISION PROGRAM DIRECTOR) [facility] Direct Specimen Exam Stain: Gram Positive Cocci in clusters Test result called to and read back by Ana Maria Grier RN on 09/15/2024 05:37:49 by MARCELL. Report Final Report: Staphylococcus aureus, methicillin susceptible Susceptibility reported on this organism on previous culture [id number] (.) [facility] Organism STAPHYLOCOCCUS AUREUS, METHICILLIN SUSCEPTIBLE [facility] Blood 09/14/2024 9:42 AM TELEVISION PROGRAM DIRECTOR 09/14/2024 9:50 AM TELEVISION PROGRAM DIRECTOR Narrative [facility] - 09/16/2024 10:13 AM TELEVISION PROGRAM DIRECTOR From a different site than #1. Interpretive [...] organism identification may be performed using the [employer] Blood Culture Identification panel. This assay detects microbial DNA in a blood culture broth. This assay has been cleared by the [facility] Food and Drug Administration and its performance characteristics have been verified by the [facility] Microbiology Laboratory. Interpretive data was last revised on September 11, 2022. Flo Villagran MD LAB MICROBIOLOGY - GENERAL O RDERABLES Final Result Performing Organization Address [facility] Co de Phone Number [facility] [address] [employer] [place], [place] [phone] * Blood culture Blood (09/14/2024 9:42 AM TELEVISION PROGRAM DIRECTOR) Report Final Report: No growth Blood 09/14/2024 9:42 AM TELEVISION PROGRAM DIRECTOR 09/14/2024 12:44 PM TELEVISION PROGRAM DIRECTOR Narrative [facility] - 09/19/2024 1:00 PM TELEVISION PROGRAM DIRECTOR Interpretive Data 1. Blood cultures are incubated and monitored continuously for 5 days (120 hours). The first negative report is issued within 24 hours of receipt in the laboratory. 2. All positive cultures are resulted and called to physicians/care providers as soon as they are detected. 3. A rapid molecular test for organism identification may be performed using the [employer] Film[employer] Blood Culture Identification panel. This assay detects microbial DNA in a blood culture broth. This assay has been cleared by the [place] Food and Drug Administration and its performance characteristics have been verified by the [facility] Microbiology Laboratory. Interpretive data was last revised on September 11, 2022. Flo Villagran MD LAB MICROBIOLOGY - GENERAL O RDERABLES Final Result Performing Organization Address City/[facility]/ZIP Co de Phone Number [facility] [address] [place] [address] * (ABNORMAL) POCT glucose (09/14/2024 8:56 AM TELEVISION PROGRAM DIRECTOR) Glucose, POC 228(H) 70 - 199 mg/dL Comment: For Glucose values <35 mg/dl when Hematocrit is >60 mg/dl,the test may not accurately detect significant hypoglycemia,and testing in the Laboratory should be considered if clinically indicated. Blood 09/14/2024 8:56 AM TELEVISION PROGRAM DIRECTOR 09/14/2024 8:56 AM TELEVISION PROGRAM DIRECTOR Flo Villagran MD LAB POCT ORDERABLES - DEVICE Final Result Performing Organization Address [facility] Co de Phone Number [facility] [address] [employer] [place], [place] [phone] * (ABNORMAL) Blood gas, arterial (09/14/2024 8:08 AM TELEVISION PROGRAM DIRECTOR) pH, Art 7.34(L) 7.35 - 7.45 PCO2, Arterial 45 35 - 45 mmHg [facility] PO2, Arterial 79(L) 83 - 108 mmHg [facility] HCO3 Art (Calculated) 24 20 - 30 mmol/L [facility] BE, art -2 mmol/L [facility] Comment: Interpretive Data No Reference Range Established Current Interpretive Data was last revised on 2017 O2 Sat Art (Calculated) 95 94 - 98 % [facility] Blood 09/14/2024 8:08 AM TELEVISION PROGRAM DIRECTOR 09/14/2024 8:11 AM TELEVISION PROGRAM DIRECTOR Flo Villagran MD LAB BLOOD ORDERABLES Final R esult Performing Organization Address [facility]/ZIP Co de Phone Number [facility] [address] [facility] [place] [address] * (ABNORMAL) POCT glucose (09/14/2024 7:50 AM TELEVISION PROGRAM DIRECTOR) Glucose, POC 235(H) 70 - 199 mg/dL Comment: For Glucose values <35 mg/dl when Hematocrit is >60 mg/dl,the test may not accurately detect significant hypoglycemia,and testing in the Laboratory should be considered if clinically indicated. Blood 09/14/2024 7:50 AM TELEVISION PROGRAM DIRECTOR 09/14/2024 7:50 AM TELEVISION PROGRAM DIRECTOR Flo Villagran MD LAB POCT ORDERABLES - DEVICE Final Result Performing Organization Address [facility] de Phone Number [facility] [address] [facility] [place] [address] * (ABNORMAL) aPTT (09/14/2024 6:06 AM TELEVISION PROGRAM DIRECTOR) aPTT >150(C) 28 - 38 sec Comment: Critical result called to and read back by Tatiana Sutton (RN) on 09/14/2024 07:20:52 TELEVISION PROGRAM DIRECTOR to [id number]. Specimen integrity checked. No clot Interpretive Data Heparin therapeutic range: 66.0 - 100.0 seconds. Range based on correlation with therapeutic heparin activity range of 0.3 - 0.7 Units/mL. Current interpretive data was last revised on 2023. Blood 09/14/2024 6:06 AM TELEVISION PROGRAM DIRECTOR 09/14/2024 6:23 AM TELEVISION PROGRAM DIRECTOR Abeba Ash MD LAB BLOOD ORDERABLES Final R esult Performing Organization Address [facility] de Phone Number [facility] [address] [facility] [place] [address] * (ABNORMAL) POCT glucose (09/14/2024 4:10 AM TELEVISION PROGRAM DIRECTOR) Glucose, POC 301(H) 70 - 199 mg/dL Comment: For Glucose values <35 mg/dl when Hematocrit is >60 mg/dl,the test may not accurately detect significant hypoglycemia,and testing in the Laboratory should be considered if clinically indicated. Blood 09/14/2024 4:10 AM TELEVISION PROGRAM DIRECTOR 09/14/2024 4:10 AM TELEVISION PROGRAM DIRECTOR Flo Villagran MD LAB POCT ORDERABLES - DEVICE Final Result [facility] [address] Department [place] [address] * XR Chest 1 View (09/14/2024 3:10 AM TELEVISION PROGRAM DIRECTOR) Anatomical Region Laterality Modality Body, Chest N/A Computed Radiogr aphy 09/14/2024 7:30 AM TELEVISION PROGRAM DIRECTOR Impressions 09/14/2024 7:30 AM TELEVISION PROGRAM DIRECTOR Comparison is made to prior chest radiograph dated 09/13/2024. Feeding tube terminates in the stomach. There are increased patchy opacities in the left greater than right lung bases. Findings are most consistent with pneumonia, possibly related to aspiration. No pleural effusion. No pneumothorax. Stable heart size. Electronically signed by: Pippa Sin M.D. Narrative 09/14/2024 7:30 AM TELEVISION PROGRAM DIRECTOR EXAMINATION: XR CHEST 1 VIEW Procedure Note [...] lt * (ABNORMAL) eGFR (09/14/2024 1:59 AM TELEVISION PROGRAM DIRECTOR) eGFR 38(L) >=60 mL/min/1. 73 m2 Comment: [...] last reviewed 2021. Blood 09/14/2024 1:59 AM TELEVISION PROGRAM DIRECTOR 09/14/2024 2:14 AM TELEVISION PROGRAM DIRECTOR us Flo Villagran MD LAB BLOOD ORDERABLES Final R esult [facility] [address] Department [place] [address] * (ABNORMAL) Manual Differential (09/14/2024 1:59 AM TELEVISION PROGRAM DIRECTOR) Cells Counted 125 Neutrophil abs 3.5 1.5 - 6.5 K/cumm [facility] Imm gran abs 0.1 0.0 - 0.1 K/cumm [facility] Lymphocyte abs 0.3(L) 0.8 - 3.3 K/cumm [facility] Monocyte abs 0.4 0.2 - 0.8 K/cumm [facility] Neutrophil pct 83.2 % [facility] Comment: Interpretive Data Percent cell count reference ranges are not reported, since discordance with absolute values may lead to misinterpretation of CBC data. Current Interpretive Data was last revised on 2017. Lymphocyte pct 6.4 % [facility] Comment: Interpretive Data Percent cell count reference ranges are not reported, since discordance with absolute values may lead to misinterpretation of CBC data. Current Interpretive Data was last revised on 2017. Monocyte pct 8.8 % [facility] Comment: Interpretive Data Percent cell count reference ranges are not reported, since discordance with absolute values may lead to misinterpretation of CBC data. Current Interpretive Data was last revised on 2017. Metamyelocyte pct 1.6(H) 0.0 - 0.0 % [facility] RBC morphology Present(A) [facility] Anisocytosis Slight(A) [facility] Poikilocytosis Moderate(A ) [facility] Echinocytes 3-7/HPF(A) [facility] Platelet estimate Decreased( A) [facility] Morphology scrn See Comment [facility] Comment:WBC: Toxic Vacuolati on present PLT: Platelet morphology normal Automated count not confirmed by smear review; See platelet estimate Blood 09/14/2024 1:59 AM TELEVISION PROGRAM DIRECTOR 09/14/2024 2:14 AM TELEVISION PROGRAM DIRECTOR Flo Villagran MD LAB BLOOD ORDERABLES Final R esult [facility] [address] Department [place] [address] * (ABNORMAL) CBC without differential (09/14/2024 1:59 AM TELEVISION PROGRAM DIRECTOR) WBC 4.2 3.8 - 9.9 K/cumm Hgb 11.1(L) 11.9 - 15.5 g/dL [facility] Hct 36.5 35.6 - 45.5 % [facility] Plt 71(L) 150 - 400 K/cumm [facility] Comment:no clot MPV 12.8(H) 9.1 - 12.3 fL [facility] RBC 3.85(L) 3.90 - 5.20 M/cumm [facility] MCV 94.8 81.3 - 96.4 fL [facility] MCH 28.8 27.1 - 33.3 pg [facility] MCHC 30.4(L) 32.3 - 35.7 g/dL [facility] RDW CV 14.8 11.1 - 14.9 % [facility] RDW SD 51.8(H) 35.7 - 48.1 fL [facility] NRBC abs 0.00 0.00 - 0.01 K/cumm [facility] Blood 09/14/2024 1:59 AM TELEVISION PROGRAM DIRECTOR 09/14/2024 2:14 AM TELEVISION PROGRAM DIRECTOR Flo Villagran MD LAB BLOOD ORDERABLES Final R esult Performing Organization Address [facility] de Phone Number [facility] [address] [place] [address] * Phosphorus (09/14/2024 1:59 AM TELEVISION PROGRAM DIRECTOR) Phosphorus, pl 4.2 2.3 - 4.5 mg/dL Comment:Reviewed Blood 09/14/2024 1:59 AM TELEVISION PROGRAM DIRECTOR 09/14/2024 2:14 AM TELEVISION PROGRAM DIRECTOR Flo Villagran MD LAB BLOOD ORDERABLES Final R esult Performing Organization Address [facility] Phone Number [facility] [address] [facility] [place] [address] * Magnesium (09/14/2024 1:59 AM TELEVISION PROGRAM DIRECTOR) Magnesium 1.8 1.4 - 2.5 mg/dL Blood 09/14/2024 1:59 AM TELEVISION PROGRAM DIRECTOR 09/14/2024 2:14 AM TELEVISION PROGRAM DIRECTOR Result [facility] Flo Villagran MD LAB BLOOD ORDERABLES Final R esult Performing Organization Address [facility] de Phone Number [facility] [address] [place], [place] [phone] * Bilirubin, direct (09/14/2024 1:59 AM TELEVISION PROGRAM DIRECTOR) Bilirubin, direct 0.3 0.1 - 0.3 mg/dL Blood 09/14/2024 1:59 AM TELEVISION PROGRAM DIRECTOR 09/14/2024 2:14 AM TELEVISION PROGRAM DIRECTOR Flo Villagran MD LAB BLOOD ORDERABLES Final R esult Performing Organization Address [facility]/State/ZIP Co de Phone Number [facility] [address] Department [place] [address] * (ABNORMAL) Comprehensive metabolic panel (09/14/2024 1:59 AM TELEVISION PROGRAM DIRECTOR) Sodium 149(H) 135 - 145 mmol/L Potassium, pl 3.8 3.3 - 4.9 mmol/L [facility] Chloride 112(H) 97 - 110 mmol/L [facility] CO2 20(L) 22 - 32 mmol/L [facility] Anion gap 17(H) 2 - 15 mmol/L [facility] BUN 44(H) 6 - 25 mg/dL [facility] Creatinine 1.63(H) 0.60 - 1.10 mg/dL [facility] Glucose 312(H) 70 - 199 mg/dL [facility] Comment: Interpretive Data Fasting glucose >/= 126 [...] 2022. Calcium 8.5 8.5 - 10.3 mg/dL [facility] Bilirubin, total 0.6 0.1 - 1.2 mg/dL [facility] Protein, pl 6.0(L) 6.5 - 8.5 g/dL [facility] Albumin 2.8(L) 3.5 - 5.0 g/dL [facility] Alk phos 96 40 - 130 Units/L [facility] ALT 28 7 - 45 Units/L [facility] AST 51(H) 10 - 45 Units/L [facility] Blood 09/14/2024 1:59 AM TELEVISION PROGRAM DIRECTOR 09/14/2024 2:14 AM TELEVISION PROGRAM DIRECTOR Flo Villagran MD LAB BLOOD ORDERABLES Final R esult Performing Organization Address [facility] Co de Phone Number [facility] [address] Department [employer] [place], [place] [phone] * (ABNORMAL) POCT glucose (09/14/2024 12:41 AM TELEVISION PROGRAM DIRECTOR) Glucose, POC 266(H) 70 - 199 mg/dL Comment: For Glucose values <35 mg/dl when Hematocrit is >60 mg/dl,the test may not accurately detect significant hypoglycemia,and testing in the Laboratory should be considered if clinically indicated. Blood 09/14/2024 12:4 1 AM TELEVISION PROGRAM DIRECTOR 09/14/2024 12:41 AM TELEVISION PROGRAM DIRECTOR us Flo Villagran MD LAB POCT ORDERABLES - DEVICE Final Result Performing Organization Address [facility] de Phone Number [facility] [address] [facility] [employer] [place], [place] [phone] * (ABNORMAL) aPTT (09/13/2024 9:58 PM TELEVISION PROGRAM DIRECTOR) aPTT 148(C) 28 - 38 sec Comment: spoke with Linda Jean (RN) 09/13/2024 22:44:39 TELEVISION PROGRAM DIRECTOR [id number] Interpretive Data Heparin therapeutic range: 66.0 - 100.0 seconds. Range based on correlation with therapeutic heparin activity range of 0.3 - 0.7 Units/mL. Current interpretive data was last revised on 2023. Blood 09/13/2024 9:58 PM TELEVISION PROGRAM DIRECTOR 09/13/2024 10:02 PM TELEVISION PROGRAM DIRECTOR us Flo Villagran MD LAB BLOOD ORDERABLES Final R esult Performing Organization Address [facility] Co de Phone Number [facility] [address] [facility] [employer] [place], [place] [phone] * XR Abdomen 2 Views Erect and or Decubitus (09/13/2024 9:41 PM TELEVISION PROGRAM DIRECTOR) Anatomical Region Laterality Modality Body, Abdomen N/A Computed Radiogr aphy 09/14/2024 9:14 AM TELEVISION PROGRAM DIRECTOR Impressions 09/14/2024 9:14 AM TELEVISION PROGRAM DIRECTOR Supine and upright views of the abdomen [...] Alfonso Taylor M.D. Narrative 09/14/2024 9:14 AM TELEVISION PROGRAM DIRECTOR EXAMINATION: XR ABDOMEN ERECT AND OR DECUBITUS [...] * (ABNORMAL) POCT glucose (09/13/2024 7:57 PM TELEVISION PROGRAM DIRECTOR) Glucose, POC 249(H) 70 - 199 mg/dL Comment: For Glucose values <35 mg/dl when Hematocrit is >60 mg/dl,the test may not accurately detect significant hypoglycemia,and testing in the Laboratory should be considered if clinically indicated. Blood 09/13/2024 7:57 PM TELEVISION PROGRAM DIRECTOR 09/13/2024 7:57 PM TELEVISION PROGRAM DIRECTOR us Flo Villagran MD LAB POCT ORDERABLES - DEVICE Final Result Performing Organization Address [facility] Co de Phone Number [facility] [address] [place] [address] * (ABNORMAL) eGFR (09/13/2024 6:33 PM TELEVISION PROGRAM DIRECTOR) eGFR 47(L) >=60 mL/min/1. 73 m2 Comment: [...] last reviewed 2021. Blood 09/13/2024 6:33 PM TELEVISION PROGRAM DIRECTOR 09/13/2024 6:41 PM TELEVISION PROGRAM DIRECTOR Flo Villagran MD LAB BLOOD ORDERABLES Final R esult Performing Organization Address City/[facility]/ZIP Co de Phone Number [facility] [address] Department [place] [address] * (ABNORMAL) Renal function panel (09/13/2024 6:33 PM TELEVISION PROGRAM DIRECTOR) Sodium 146(H) 135 - 145 mmol/L Potassium, pl 3.6 3.3 - 4.9 mmol/L [facility] Chloride 112(H) 97 - 110 mmol/L [facility] CO2 20(L) 22 - 32 mmol/L [facility] Anion gap 14 2 - 15 mmol/L [facility] BUN 42(H) 6 - 25 mg/dL [facility] Creatinine 1.38(H) 0.60 - 1.10 mg/dL [facility] Glucose 182 70 - 199 mg/dL [facility] Comment: Interpretive Data Fasting glucose >/= 126 [...] 2022. Calcium 7.9(L) 8.5 - 10.3 mg/dL [facility] Phosphorus, pl 2.1(L) 2.3 - 4.5 mg/dL [facility] Albumin 2.4(L) 3.5 - 5.0 g/dL [facility] Blood 09/13/2024 6:33 PM TELEVISION PROGRAM DIRECTOR 09/13/2024 6:41 PM TELEVISION PROGRAM DIRECTOR Flo Villagran MD LAB BLOOD ORDERABLES Final R esult [facility] [address] Department [place] [address] * ECG 12 lead (09/13/2024 5:24 PM TELEVISION PROGRAM DIRECTOR) 09/13/2024 5:24 PM TELEVISION PROGRAM DIRECTOR Narrative [facility] - 09/14/2024 12:02 AM TELEVISION PROGRAM DIRECTOR Vent Rate: 136 bpm RR Interval: 440 msec PA Interval: 122 msec QRS Duration: 86 msec QT Interval: 330 msec QTC Interval: 410 msec P-R-T [place]: 57 - -14 - 116 degrees IMPRESSION: SINUS TACHYCARDIA ST DEVIATION AND MODERATE T-WAVE ABNORMALITY, CONSIDER LATERAL ISCHEMIA ABNORMAL ECG Electronically Signed By: Nilson Dubose [facility] Card us Flo Villagran MD ECG ORDERABLES Final Result Performing Organization Address [facility] de Phone Number [facility] * POCT glucose (09/13/2024 4:29 PM TELEVISION PROGRAM DIRECTOR) Glucose, POC 160 70 - 199 mg/dL Comment: For Glucose values <35 mg/dl when Hematocrit is >60 mg/dl,the test may not accurately detect significant hypoglycemia,and testing in the Laboratory should be considered if clinically indicated. Blood 09/13/2024 4:29 PM TELEVISION PROGRAM DIRECTOR 09/13/2024 4:29 PM TELEVISION PROGRAM DIRECTOR Flo Villagran MD LAB POCT ORDERABLES - DEVICE Final Result Performing Organization Address [facility] de Phone Number [facility] [address] [place] [address] * POCT glucose (09/13/2024 3:18 PM TELEVISION PROGRAM DIRECTOR) Glucose, POC 92 70 - 199 mg/dL Comment: For Glucose values <35 mg/dl when Hematocrit is >60 mg/dl,the test may not accurately detect significant hypoglycemia,and testing in the Laboratory should be considered if clinically indicated. Blood 09/13/2024 3:18 PM TELEVISION PROGRAM DIRECTOR 09/13/2024 3:18 PM TELEVISION PROGRAM DIRECTOR Flo Villagran MD LAB POCT ORDERABLES - DEVICE Final Result Performing Organization Address [facility] de Phone Number [facility] [address] Department [place] [address] * POCT glucose (09/13/2024 2:29 PM TELEVISION PROGRAM DIRECTOR) Glucose, POC 102 70 - 199 mg/dL Comment: For Glucose values <35 mg/dl when Hematocrit is >60 mg/dl,the test may not accurately detect significant hypoglycemia,and testing in the Laboratory should be considered if clinically indicated. Blood 09/13/2024 2:29 PM TELEVISION PROGRAM DIRECTOR 09/13/2024 2:29 PM TELEVISION PROGRAM DIRECTOR Flo Villagran MD LAB POCT ORDERABLES - DEVICE Final Result Performing Organization Address [facility] Co de Phone Number [facility] [address] Department [employer] [place], [place] [id number] * (ABNORMAL) aPTT (09/13/2024 2:28 PM TELEVISION PROGRAM DIRECTOR) [facility] aPTT 102(H) 28 - 38 sec Comment: Interpretive Data Heparin therapeutic range: 66.0 - 100.0 seconds. Range based on correlation with therapeutic heparin activity range of 0.3 - 0.7 Units/mL. Current interpretive data was last revised on 2023. Blood 09/13/2024 2:28 PM TELEVISION PROGRAM DIRECTOR 09/13/2024 2:36 PM TELEVISION PROGRAM DIRECTOR Flo Villagran MD LAB BLOOD ORDERABLES Final R esult Performing Organization Address [facility] de Phone Number [facility] [address] [employer] [place], [place] [phone] * POCT glucose (09/13/2024 1:10 PM TELEVISION PROGRAM DIRECTOR) [facility] Glucose, POC 117 70 - 199 mg/dL Comment: For Glucose values <35 mg/dl when Hematocrit is >60 mg/dl,the test may not accurately detect significant hypoglycemia,and testing in the Laboratory should be considered if clinically indicated. Blood 09/13/2024 1:10 PM TELEVISION PROGRAM DIRECTOR 09/13/2024 1:10 PM TELEVISION PROGRAM DIRECTOR Flo Villagran MD LAB POCT ORDERABLES - DEVICE Final Result Performing Organization Address [facility] Co de Phone Number [facility] [address] [place] [facility] [employer] [place], [place] [phone] * (ABNORMAL) eGFR (09/13/2024 12:22 PM TELEVISION PROGRAM DIRECTOR) [facility] eGFR 46(L) >=60 mL/min/1. 73 m2 Comment: [...] reviewed 2021. Blood 09/13/2024 12:2 2 PM TELEVISION PROGRAM DIRECTOR 09/13/2024 12:40 PM TELEVISION PROGRAM DIRECTOR us Aebba Ash MD LAB BLOOD ORDERABLES Final R esult [facility] [address] Department [employer] [place], [place] [id number] * Phosphorus (09/13/2024 12:22 PM TELEVISION PROGRAM DIRECTOR) Phosphorus, pl 2.3 2.3 - 4.5 mg/dL Blood 09/13/2024 12:2 2 PM TELEVISION PROGRAM DIRECTOR 09/13/2024 12:40 PM TELEVISION PROGRAM DIRECTOR Abeba Ash MD LAB BLOOD ORDERABLES Final R esult [facility] [address] Department [place] [address] * Magnesium (09/13/2024 12:22 PM TELEVISION PROGRAM DIRECTOR) Magnesium 1.9 1.4 - 2.5 mg/dL Blood 09/13/2024 12:2 2 PM TELEVISION PROGRAM DIRECTOR 09/13/2024 12:40 PM TELEVISION PROGRAM DIRECTOR Abeba Ash MD LAB BLOOD ORDERABLES Final R esult [facility] [address] Department [place] [address] * (ABNORMAL) Basic metabolic panel (09/13/2024 12:22 PM TELEVISION PROGRAM DIRECTOR) Pathologist [facility] Sodium 146(H) 135 - 145 mmol/L Potassium, pl 3.5 3.3 - 4.9 mmol/L [facility] Chloride 111(H) 97 - 110 mmol/L [facility] CO2 22 22 - 32 mmol/L [facility] Anion gap 13 2 - 15 mmol/L [facility] BUN 47(H) 6 - 25 mg/dL [facility] Creatinine 1.41(H) 0.60 - 1.10 mg/dL [facility] Glucose 141 70 - 199 mg/dL [facility] Comment: Interpretive Data Fasting glucose >/= 126 [...] 2022. Calcium 8.6 8.5 - 10.3 mg/dL [facility] Blood 09/13/2024 12:2 2 PM TELEVISION PROGRAM DIRECTOR 09/13/2024 12:40 PM TELEVISION PROGRAM DIRECTOR us Abeba Ash MD LAB BLOOD ORDERABLES Final R esult Performing Organization Address [facility]/ZIP Co de Phone Number [facility] [address] [place] [address] * POCT glucose (09/13/2024 12:20 PM TELEVISION PROGRAM DIRECTOR) Glucose, POC 142 70 - 199 mg/dL Comment: For Glucose values <35 mg/dl when Hematocrit is >60 mg/dl,the test may not accurately detect significant hypoglycemia,and testing in the Laboratory should be considered if clinically indicated. Blood 09/13/2024 12:2 0 PM TELEVISION PROGRAM DIRECTOR 09/13/2024 12:20 PM TELEVISION PROGRAM DIRECTOR us Flo Villagran MD LAB POCT ORDERABLES - DEVICE Final Result [facility] [address] Department [place] [address] * US Carotids Duplex Bilateral (09/13/2024 11:55 AM TELEVISION PROGRAM DIRECTOR) Anatomical Region Laterality Modality Vascular Bilateral Ultrasound 09/13/2024 12:3 7 PM TELEVISION PROGRAM DIRECTOR Impressions 09/13/2024 12:37 PM TELEVISION PROGRAM DIRECTOR 1) There are minimal non-hemodynamic plaque formations [...] Kwaku Tolentino M.D. Narrative 09/13/2024 12:37 PM TELEVISION PROGRAM DIRECTOR DATE:09/13/2024 10:00 AM EXAM: Duplex imaging of [...] W DOPPLER/CF W CONTRAST (09/13/2024 11:24 AM TELEVISION PROGRAM DIRECTOR) LV EF 45-50 % CONS SCIMAGE Anatomical Region Laterality Modality Ultrasound 09/13/2024 10:2 8 AM TELEVISION PROGRAM DIRECTOR Narrative 09/13/2024 4:50 PM TELEVISION PROGRAM DIRECTOR [id number] [place] [address] ECHOCARDIOGRAM Patient Name: BROOKE MARSHALL R : 1975 (48y 8m) Gender: F Study Date: 09/13/2024 10:28:21 AM Ht(Inch): 65 Wt(Lb): 201.94 BSA: 2.05 Pipe Coverer: MINH Location: [id number] Order Provider: ABEBA ASH BMI: 33.6 BP: 111/63 Ref Provider: ABEBA ASH - PROCEDURES: Echocardiographic Report: Transthoracic Echocardiogram with 2D, M-Mode, Spectral and Color Flow Doppler examination and administration of intravenous contrast. INDICATIONS: Non ST elevation SC. MEASUREMENTS: 2D/MM Value Range Doppler Value Range [...] By: Rene Nicole MD 09/13/2024 4:49:40 PM TELEVISION PROGRAM DIRECTOR Procedure Note Rene Nicole MD - 09/13/2024 [id number] [place] [address] ECHOCARDIOGRAM Patient Name: BROOKE MARSHALL R : 1975 (48y 8m) Gender: F Study Date: 09/13/2024 10:28:21 AM Ht(Inch): 65 Wt(Lb): 201.94 BSA: 2.05 Pipe Coverer: MINH Location: [id number] Order Provider: ABEBA ASH BMI: 33.6 BP: 111/63 Ref Provider: ABEBA ASH - PROCEDURES: Echocardiographic Report: Transthoracic Echocardiogram with 2D, M-Mode,Spectral and Color Flow Doppler examination and administration of intravenouscontrast. INDICATIONS: Non ST elevation SC. MEASUREMENTS: 2D/MM Value Range DopplerValue Range IVSd [...] By: Rene Nicole MD 09/13/2024 4:49:40 PM TELEVISION PROGRAM DIRECTOR us Abeba Ash MD CV ECHO PROCEDURES Final Res ult * POCT glucose (09/13/2024 11:12 AM TELEVISION PROGRAM DIRECTOR) Glucose, POC 149 70 - 199 mg/dL Comment: For Glucose values <35 mg/dl when Hematocrit is >60 mg/dl,the test may not accurately detect significant hypoglycemia,and testing in the Laboratory should be considered if clinically indicated. Blood 09/13/2024 11:1 2 AM TELEVISION PROGRAM DIRECTOR 09/13/2024 11:12 AM TELEVISION PROGRAM DIRECTOR Flo Villagran MD LAB POCT ORDERABLES - DEVICE Final Result Performing Organization Address [facility] Co de Phone Number [facility] [address] [facility] [place] [address] * (ABNORMAL) DIC Platelet (09/13/2024 9:45 AM TELEVISION PROGRAM DIRECTOR) Plt 96(L) 150 - 400 K/cumm Blood 09/13/2024 9:45 AM TELEVISION PROGRAM DIRECTOR 09/13/2024 10:14 AM TELEVISION PROGRAM DIRECTOR Flo Villagran MD LAB BLOOD ORDERABLES Final R esult Performing Organization Address [facility] de Phone Number [facility] [address] [facility] [place] [address] * (ABNORMAL) DIC Coagulation (09/13/2024 9:45 AM TELEVISION PROGRAM DIRECTOR) Pathologist [facility] PT DIC 10.3 10.3 - 13.7 sec INR DIC 0.95 0.90 - 1.20 [facility] PTT DIC 78(H) 28 - 38 sec [facility] Comment: Interpretive Data Heparin therapeutic range: 66.0 - 100.0 seconds. Range based on correlation with therapeutic heparin activity range of 0.3 - 0.7 Units/mL. Current interpretive data was last revised on 2023. D-Dimer 2,217(H) <=499 ng/mL FEU [facility] Comment: Interpretive data FDA approved the D-dimer, [...] 2019. Fibrinogen 620(H) 170 - 400 mg/dL [facility] Blood 09/13/2024 9:45 AM TELEVISION PROGRAM DIRECTOR 09/13/2024 10:14 AM TELEVISION PROGRAM DIRECTOR Flo Villagran MD LAB BLOOD ORDERABLES Final R esult Performing Organization Address [facility] Co de Phone Number [facility] [address] Department [place] [address] * HIT Antibodies with Reflex to Serotonin Release Assay (ASHLEY) (09/13/2024 9:45 AM TELEVISION PROGRAM DIRECTOR) HIT antibodies Negative Negative Comment: INTERPRETIVE DATA A result of >/= 1.0 U/mL is interpreted as Heparin/anti-PF4 antibody positive. A result of < 1.0 U/mL is interpreted as Heparin/anti-PF4 antibody negative. Although a positive result may indicate the presence of Heparin-associated antibodies, it does not CONFIRM the diagnosis of Heparin Induced Thrombocytopenia (HIT). Positive specimens will be sent to Blood [facility] ([facility]) for confirmatory testing by Serotonin Release Assay (ASHLEY). Current interpretive data last reviewed 2017 Blood 09/13/2024 9:45 AM TELEVISION PROGRAM DIRECTOR 09/13/2024 10:14 AM TELEVISION PROGRAM DIRECTOR Flo Villagran MD LAB BLOOD ORDERABLES Final R esult Performing Organization Address [facility] Co de Phone Number [facility] [address] Department [place] [address] * DIC Schistocytes (09/13/2024 9:45 AM TELEVISION PROGRAM DIRECTOR) Schistocytes None Seen None Seen Blood 09/13/2024 9:45 AM TELEVISION PROGRAM DIRECTOR 09/13/2024 10:14 AM TELEVISION PROGRAM DIRECTOR Flo Villagran MD LAB BLOOD ORDERABLES Final R esult Performing Organization Address City/[facility]/ZIP Co de Phone Number [facility] [address] Department [place] [address] * (ABNORMAL) Urinalysis reflex to microscopic and culture Urine (09/13/2024 9:45 AM TELEVISION PROGRAM DIRECTOR) Color, ur Yellow Yellow Clarity, ur Turbid(A) Clear [facility] Specific gravity, ur 1.020 1.003 - 1.030 [facility] pH, urine 6.0 [facility] Comment: Interpretive Data U rine pH is affected by diet, medications, systemic acid-base disturbances, and renal tubular function. pH may affect urinary stone formation. For example, urine pH below 6.0 may help reduce the tendency for calcium phosphate stones and pH greater than 6.0 may reduce the tendency for uric acid stone formation. Source: [facility] Current Interpretive Data was last revised on 2017 Protein, ur ql 2+(A) Negative [facility] Glucose, ur ql 3+(A) Negative [facility] Ketones, ur Trace Negative [facility] Bilirubin, ur Negative Negative [facility] Blood, ur 1+(A) Negative [facility] Urobilinogen, ur <2.0 <2.0 mg/dL [facility] Nitrite, ur Negative Negative [facility] Leukocyte esterase, ur 4+(A) Negative [facility] UA reflex comment Reflex to microscopic UA will be performed. [facility] Urine 09/13/2024 9:45 AM TELEVISION PROGRAM DIRECTOR 09/13/2024 9:45 AM TELEVISION PROGRAM DIRECTOR Flo Villagran MD LAB MICROBIOLOGY - GENERAL O RDERABLES Final Result Performing Organization Address City/[facility]/ZIP Co de Phone Number [facility] [address] Department [place] [address] * (ABNORMAL) Drugs of Abuse Screen, Urine without Confirmation (09/13/2024 9:45 AM TELEVISION PROGRAM DIRECTOR) Amphetamine, ur Not Detected CutOff 500ng/mL Comment: Interpretive Data - Amphetamines: Samples containing greater than 500 ng/mL d-methamphetamine or other cross-reacting amphetamine compounds are reported as positive. Amphetamine immunoassays are subject to significant false positive rates due to cross-reactivity of non-amphetamine drugs. Confirmatory testing required for definitive results. Current Interpretive Data was last reviewed 2023. Barbiturates, ur Not Detected CutOff 200ng/mL [facility] Comment: Interpretive Data - Barbiturates: Samples containing greater than 200 ng/mL secobarbital or other cross-reacting barbiturate compounds are reported as positive. False positive and false negative results are possible. Confirmatory testing required for definitive results. Current Interpretive Data was last reviewed 2023. Benzodiazepines, ur Not Detected CutOff 100ng/mL [facility] Comment: Interpretive Data - Benzodiazepines: Samples containing greater than 100 ng/mL nordiazepam or other cross-reacting compounds are reported as positive. False positive and false negative results are possible. Confirmatory testing required for definitive results. Current Interpretive Data was last reviewed 2023. Cannabinoids, ur Not Detected CutOff 50 ng/mL [facility] Comment: Interpretive Data - Cannabinoids: Samples containing greater than 50 ng/mL delta-9 THC -COOH or other cross- reacting compounds are reported as positive. False positive and false negative results are possible. Confirmatory testing required for definitive results. Current Interpretive Data was last reviewed 2023. Cocaine, ur Not Detected CutOff 150ng/mL [facility] Comment: Interpretive Data - Cocaine: Samples containing greater than 150 ng/mL benzoylecgonine or other cross- reacting compounds are reported as positive. False positive and false negative results are possible. Confirmatory testing required for definitive results. Current Interpretive Data was last reviewed 2023. Fentanyl, Ur Screen Positive, presumptive (A) CutOff 5 ng/mL [facility] Comment: Interpretive Data - Fentanyl: Samples containing greater than 5 ng/mL norfentanyl, fentanyl, or other cross-reacting fentanyl compounds are reported as positive. False positive and false negative results are possible. Confirmatory testing required for definitive results. Current Interpretive Data was last reviewed 2023. Methadone, ur Not Detected CutOff 300ng/mL [facility] Comment: Interpretive Data - Methadone: Samples containing greater than 300 ng/mL d,l-methadone or other cross-reacting compounds are reported as positive. False positive and false negative results are possible. Confirmatory testing required for definitive results. Current Interpretive Data was last reviewed 2023. Opiates, ur Screen Positive, presumptive (A) CutOff 300ng/mL [facility] Comment: Interpretive Data - Opiates: Samples containing greater than 300 ng/mL morphine or other cross-reacting compounds are reported as positive. False positive and false negative results are possible. Confirmatory testing required for definitive results. Current Interpretive Data was last reviewed 2023. Oxycodone, ur Not Detected CutOff 100ng/mL [facility] Comment: Interpretive Data - Oxycodone: Samples containing greater than 100 ng/mL oxycodone or other cross-reacting compounds are reported as positive. False positive and false negative results are possible. Confirmatory testing required for definitive results. Current Interpretive Data was last reviewed 2023. Phencyclidine, ur Not Detected CutOff 25 ng/mL [facility] Comment: Interpretive Data - Phencyclidine: Samples containing greater than 25 ng/mL phencyclidine or other cross-reacting compounds are reported as positive. False positive and false negative results are possible. Confirmatory testing required for definitive results. Current Interpretive Data was last reviewed 2023. Urine Creatinine 90 mg/dL [facility] Comment: Interpretive Data Urine Creatinine: < 10 mg/dL is extremely dilute = or > 10 but < 20 mg/dL is dilute = or > 20 mg/dL is normal Current Interpretive Data was last revised on 2017. Urine 09/13/2024 9:45 AM TELEVISION PROGRAM DIRECTOR 09/13/2024 10:17 AM TELEVISION PROGRAM DIRECTOR Narrative [facility] - 09/13/2024 10:46 AM TELEVISION PROGRAM DIRECTOR Drug of Abuse screening is performed by immunoassay for medical purposes only. This is not to be used for Pain Management purposes. us Flo Villagran MD LAB URINE ORDERABLES Final R esult [facility] [address] Department of Laboratories [place], [place] [id number] * (ABNORMAL) Urinalysis, microscopic only (09/13/2024 9:45 AM TELEVISION PROGRAM DIRECTOR) WBC, ur >50(A) 0 - 5 /HPF RBC, ur >50(A) 0 - 2 /HPF [facility] Epithelial cells, squamous, ur >50(A) 0 - 5 /HPF [facility] Comment:Suggestive of contam ination. Consider recollection by clean catch. Bacteria, ur 4+(A) [facility] Yeast, ur 4+(A) [facility] Mucous, ur Present(A) [facility] Culture Reflex Comment Reflex to urine culture will be performed. [facility] Urine 09/13/2024 9:45 AM TELEVISION PROGRAM DIRECTOR 09/13/2024 10:17 AM TELEVISION PROGRAM DIRECTOR Flo Villagran MD LAB URINE ORDERABLES Final R esult Performing Organization Address [facility] Co de Phone Number [facility] [address] [employer] [place], [place] [id number] * (ABNORMAL) Urine culture Urine (09/13/2024 9:45 AM TELEVISION PROGRAM DIRECTOR) Report Final Report: Greater than or equal to 100,000 colonies/ml of Lactobacillus species Susceptibility not performed on this isolate (.) Organism LACTOBACILLUS SPECIES [facility] Urine 09/13/2024 9:45 AM TELEVISION PROGRAM DIRECTOR 09/13/2024 11:49 AM TELEVISION PROGRAM DIRECTOR Narrative [facility] - 09/15/2024 12:40 PM TELEVISION PROGRAM DIRECTOR Urine culture reflexed based upon urinalysis results. Flo Villagran MD LAB MICROBIOLOGY - GENERAL O RDERABLES Final Result Performing Organization Address [facility]/ZIP Co de Phone Number [facility] [address] Department [employer] [place], [place] [phone] * Ammonia (09/13/2024 9:45 AM TELEVISION PROGRAM DIRECTOR) Ammonia 14 <=50 mcmol/L Blood 09/13/2024 9:45 AM TELEVISION PROGRAM DIRECTOR 09/13/2024 10:14 AM TELEVISION PROGRAM DIRECTOR Flo Villagran MD LAB BLOOD ORDERABLES Final R esult Performing Organization Address [facility] de Phone Number [facility] [address] [facility] [place] [address] * POCT glucose (09/13/2024 9:31 AM TELEVISION PROGRAM DIRECTOR) Glucose, POC 170 70 - 199 mg/dL Comment: For Glucose values <35 mg/dl when Hematocrit is >60 mg/dl,the test may not accurately detect significant hypoglycemia,and testing in the Laboratory should be considered if clinically indicated. Blood 09/13/2024 9:31 AM TELEVISION PROGRAM DIRECTOR 09/13/2024 9:31 AM TELEVISION PROGRAM DIRECTOR Abeba Ash MD LAB POCT ORDERABLES - DEVICE Final Result Performing Organization Address [facility] de Phone Number [facility] [address] [facility] [place] [address] * Lipase - Add on lab test (09/13/2024 9:25 AM TELEVISION PROGRAM DIRECTOR) Acceptable Yes Blood 09/13/2024 9:25 AM TELEVISION PROGRAM DIRECTOR 09/13/2024 9:25 AM TELEVISION PROGRAM DIRECTOR Narrative [facility] - 09/13/2024 9:26 AM TELEVISION PROGRAM DIRECTOR Name of Test->Lipase Flo Villagran MD LAB BLOOD ORDERABLES Final R esult Performing Organization Address [facility] de Phone Number [facility] [address] [facility] [place] [address] * Amylase - Add on lab test (09/13/2024 9:25 AM TELEVISION PROGRAM DIRECTOR) Acceptable Yes Blood 09/13/2024 9:25 AM TELEVISION PROGRAM DIRECTOR 09/13/2024 9:25 AM TELEVISION PROGRAM DIRECTOR Narrative [facility] - 09/13/2024 9:26 AM TELEVISION PROGRAM DIRECTOR Name of Test->Amylase Flo Villagran MD LAB BLOOD ORDERABLES Final R esult [facility] [address] Department [place] [address] * XR Chest 1 Vw (09/13/2024 8:30 AM TELEVISION PROGRAM DIRECTOR) Anatomical Region Laterality Modality Body, Chest N/A Computed Radiogr aphy 09/13/2024 9:34 AM TELEVISION PROGRAM DIRECTOR Impressions 09/13/2024 9:34 AM TELEVISION PROGRAM DIRECTOR Gastric tube tip overlies the gastric body, side port overlies the gastric antrum, possibly kinked at the side port. Patchy left retrocardiac opacities could reflect atelectasis, aspiration, or pneumonia. No pneumothorax or pleural effusion. Heart size and mediastinal contours normal Electronically signed by: Ana Luisa Benson M.D. Narrative 09/13/2024 9:34 AM TELEVISION PROGRAM DIRECTOR EXAMINATION: Chest 1 view. HISTORY: Check tube [...] lt * (ABNORMAL) eGFR (09/13/2024 8:11 AM TELEVISION PROGRAM DIRECTOR) eGFR 46(L) >=60 mL/min/1. 73 m2 Comment: [...] last reviewed 2021. Blood 09/13/2024 8:11 AM TELEVISION PROGRAM DIRECTOR 09/13/2024 8:21 AM TELEVISION PROGRAM DIRECTOR Abeba Ash MD LAB BLOOD ORDERABLES Final R esult Performing Organization Address City/[facility]/ZIP Co de Phone Number [facility] [address] Department [employer] [place], [place] [phone] * Beta-hydroxybutyrate (09/13/2024 8:11 AM TELEVISION PROGRAM DIRECTOR) Beta-Hydroxybut yrate 0.5 <=0.5 mmol/L Blood 09/13/2024 8:11 AM TELEVISION PROGRAM DIRECTOR 09/13/2024 8:16 AM TELEVISION PROGRAM DIRECTOR Abeba Ash MD LAB BLOOD ORDERABLES Final R esult Performing Organization Address City/[facility]/ZIP Co de Phone Number [facility] [address] [place] [address] * (ABNORMAL) aPTT (09/13/2024 8:11 AM TELEVISION PROGRAM DIRECTOR) aPTT 72(H) 28 - 38 sec Comment: Interpretive Data Heparin therapeutic range: 66.0 - 100.0 seconds. Range based on correlation with therapeutic heparin activity range of 0.3 - 0.7 Units/mL. Current interpretive data was last revised on 2023. Blood 09/13/2024 8:11 AM TELEVISION PROGRAM DIRECTOR 09/13/2024 8:21 AM TELEVISION PROGRAM DIRECTOR Abeba Ash MD LAB BLOOD ORDERABLES Final R esult Performing Organization Address [facility] Co de Phone Number [facility] [address] [facility] [place] [address] * (ABNORMAL) Phosphorus (09/13/2024 8:11 AM TELEVISION PROGRAM DIRECTOR) Phosphorus, pl 2.1(L) 2.3 - 4.5 mg/dL Blood 09/13/2024 8:11 AM TELEVISION PROGRAM DIRECTOR 09/13/2024 8:16 AM TELEVISION PROGRAM DIRECTOR us Abeba Ash MD LAB BLOOD ORDERABLES Final R esult Performing Organization Address [facility] Co de Phone Number [facility] [address] [facility] [place] [address] * Magnesium (09/13/2024 8:11 AM TELEVISION PROGRAM DIRECTOR) Magnesium 1.9 1.4 - 2.5 mg/dL Blood 09/13/2024 8:11 AM TELEVISION PROGRAM DIRECTOR 09/13/2024 8:16 AM TELEVISION PROGRAM DIRECTOR Abeba Ash MD LAB BLOOD ORDERABLES Final R esult Performing Organization Address [facility] Co de Phone Number [facility] [address] [facility] [place] [address] * Lipase (09/13/2024 8:11 AM TELEVISION PROGRAM DIRECTOR) Lipase 25 10 - 99 Units/L Blood 09/13/2024 8:11 AM TELEVISION PROGRAM DIRECTOR 09/13/2024 8:21 AM TELEVISION PROGRAM DIRECTOR Abeba Ash MD LAB BLOOD ORDERABLES Final R esult Performing Organization Address [facility] Co de Phone Number [facility] [address] Department [place] [address] * Amylase (09/13/2024 8:11 AM TELEVISION PROGRAM DIRECTOR) Pathologist [facility] Amylase 48 30 - 99 Units/L Blood 09/13/2024 8:11 AM TELEVISION PROGRAM DIRECTOR 09/13/2024 8:21 AM TELEVISION PROGRAM DIRECTOR us Abeba Ash MD LAB BLOOD ORDERABLES Final R esult [facility] [address] Department [place] [address] * (ABNORMAL) Basic metabolic panel (09/13/2024 8:11 AM TELEVISION PROGRAM DIRECTOR) [facility] Sodium 147(H) 135 - 145 mmol/L Potassium, pl 3.7 3.3 - 4.9 mmol/L [facility] Chloride 112(H) 97 - 110 mmol/L [facility] CO2 21(L) 22 - 32 mmol/L [facility] Anion gap 14 2 - 15 mmol/L [facility] BUN 49(H) 6 - 25 mg/dL [facility] Creatinine 1.40(H) 0.60 - 1.10 mg/dL [facility] Glucose 147 70 - 199 mg/dL [facility] Comment: Interpretive Data Fasting glucose >/= 126 [...] 2022. Calcium 8.6 8.5 - 10.3 mg/dL [facility] Blood 09/13/2024 8:11 AM TELEVISION PROGRAM DIRECTOR 09/13/2024 8:16 AM TELEVISION PROGRAM DIRECTOR us Abeba Ash MD LAB BLOOD ORDERABLES Final R esult Performing Organization Address [facility] Co de Phone Number [facility] [address] Department [place] [address] * (ABNORMAL) Blood gas, arterial (09/13/2024 7:58 AM TELEVISION PROGRAM DIRECTOR) [facility] pH, Art 7.38 7.35 - 7.45 PCO2, Arterial 39 35 - 45 mmHg [facility] PO2, Arterial 76(L) 83 - 108 mmHg [facility] HCO3 Art (Calculated) 23 20 - 30 mmol/L [facility] BE, art -2 mmol/L [facility] Comment: Interpretive Data No Reference Range Established Current Interpretive Data was last revised on 2017 O2 Sat Art (Calculated) 95 94 - 98 % [facility] Blood 09/13/2024 7:58 AM TELEVISION PROGRAM DIRECTOR 09/13/2024 8:02 AM TELEVISION PROGRAM DIRECTOR us Flo Villagran MD LAB BLOOD ORDERABLES Final R esult Performing Organization Address [facility] Co de Phone Number [facility] [address] Department [place] [address] * POCT glucose (09/13/2024 7:54 AM TELEVISION PROGRAM DIRECTOR) [facility] Glucose, POC 157 70 - 199 mg/dL Comment: For Glucose values <35 mg/dl when Hematocrit is >60 mg/dl,the test may not accurately detect significant hypoglycemia,and testing in the Laboratory should be considered if clinically indicated. Blood 09/13/2024 7:54 AM TELEVISION PROGRAM DIRECTOR 09/13/2024 7:54 AM TELEVISION PROGRAM DIRECTOR us Abeba Ash MD LAB POCT ORDERABLES - DEVICE Final Result Performing Organization Address [facility] Co de Phone Number [facility] [address] [place] [address] * POCT glucose (09/13/2024 6:04 AM TELEVISION PROGRAM DIRECTOR) [facility] Glucose, POC 149 70 - 199 mg/dL Comment: For Glucose values <35 mg/dl when Hematocrit is >60 mg/dl,the test may not accurately detect significant hypoglycemia,and testing in the Laboratory should be considered if clinically indicated. Blood 09/13/2024 6:04 AM TELEVISION PROGRAM DIRECTOR 09/13/2024 6:04 AM TELEVISION PROGRAM DIRECTOR us Abeba Ash MD LAB POCT ORDERABLES - DEVICE Final Result [facility] [address] Department [place] [address] * (ABNORMAL) Blood culture Blood (09/13/2024 5:22 AM TELEVISION PROGRAM DIRECTOR) [facility] Direct Specimen Exam Molecular Analysis: Staphylococcus aureus, methicillin-suscep tible (MSSA) detected by the UNY[employer] Blood Culture Identification Panel. This test does not exclude the possibility of a mixed bacterial infection. Please consider this result in the context of clinical findings and evaluate the possibility of antimicrobial de-escalation. Test result called to and read back by Ceferino Grier RN on 09/13/2024 22:28:52 by [email or web address] Direct Specimen Exam Stain: Gram Positive Cocci in clusters [facility] Report Final Report: Staphylococcus aureus, methicillin susceptible (.) [facility] Organism STAPHYLOCOCCUS AUREUS, METHICILLIN SUSCEPTIBLE [facility] Blood 09/13/2024 5:22 AM TELEVISION PROGRAM DIRECTOR 09/13/2024 5:48 AM TELEVISION PROGRAM DIRECTOR Narrative [facility] - 09/15/2024 7:42 AM TELEVISION PROGRAM DIRECTOR From a different site than #1. Collection->Peripheral [...] organism identification may be performed using the [employer] Technologies[employer] Blood Culture Identification panel. This assay detects microbial DNA in a blood culture broth. This assay has been cleared by the [place] Food and Drug Administration and its performance characteristics have been verified by the [facility] Microbiology Laboratory. Interpretive data was last revised [...] (ROBERTO CARLOS) INTERPRETATION <=0.5 mcg/mL: Susceptible Result [facility] Abeba Ash MD LAB MICROBIOLOGY - GENERAL O RDERABLES Final Result Performing Organization Address [facility]/ZIP Co de Phone Number [facility] [address] [employer] [place], [place] [id number] * POCT glucose (09/13/2024 5:06 AM TELEVISION PROGRAM DIRECTOR) Glucose, POC 152 70 - 199 mg/dL Comment: For Glucose values <35 mg/dl when Hematocrit is >60 mg/dl,the test may not accurately detect significant hypoglycemia,and testing in the Laboratory should be considered if clinically indicated. Blood 09/13/2024 5:06 AM TELEVISION PROGRAM DIRECTOR 09/13/2024 5:06 AM TELEVISION PROGRAM DIRECTOR Result [facility] Abeba Ash MD LAB POCT ORDERABLES - DEVICE Final Result Performing Organization Address City/[facility]/ZIP Co de Phone Number [facility] [address] [place] [address] * POCT glucose (09/13/2024 4:05 AM TELEVISION PROGRAM DIRECTOR) Glucose, POC 189 70 - 199 mg/dL Comment: For Glucose values <35 mg/dl when Hematocrit is >60 mg/dl,the test may not accurately detect significant hypoglycemia,and testing in the Laboratory should be considered if clinically indicated. Blood 09/13/2024 4:05 AM TELEVISION PROGRAM DIRECTOR 09/13/2024 4:05 AM TELEVISION PROGRAM DIRECTOR Abeba Ash MD LAB POCT ORDERABLES - DEVICE Final Result [facility] [address] Department [place] [address] * CT Head WO Contrast (09/13/2024 3:40 AM TELEVISION PROGRAM DIRECTOR) Anatomical Region Laterality Modality Head and Neck N/A Computed Tomogra phy 09/13/2024 3:31 AM TELEVISION PROGRAM DIRECTOR Addenda Addendum by Zion Rodriguez MD on 09/13/2024 7:20 AM TELEVISION PROGRAM DIRECTOR The Non Critical results were discussed with Dr. Flo Villagran by Wei Godinez, Elevator Repairer on 09/13/2024 at 7:16 Edited by: Wei Godinez Electronically signed by: Zion Rodriguez M.D. Impressions 09/13/2024 6:55 AM TELEVISION PROGRAM DIRECTOR 1. Small lucency in the right thalamus suspicious for age indeterminate lacunar infarct, new compared to CT 09/22/2021. If there is concern for acute infarct further evaluation can be made with MRI. 2. Otherwise no CT evidence of acute intracranial abnormality. 3. Hyperdense material in the right globe likely intraocular silicone and postoperative in nature. Correlate with history. For the purposes of quality supervisor, this study was initially interpreted by teleradiology. There is a non-emergent discrepancy that does not immediately impact patient care. Electronically signed by: Zion Rodriguez M.D. Narrative 09/13/2024 6:55 AM TELEVISION PROGRAM DIRECTOR EXAM:CT HEAD WO CONTRAST INDICATION: Right pupil [...] with history. For the purposes of quality supervisor, this study was initially interpreted by teleradiology. There is a non-emergent discrepancy that does not immediately impact patient care. Electronically signed by: Zion Rodriguez M.D. Abeba Ash MD IM CT PROCEDURES Edited Res ult - Final * (ABNORMAL) POCT glucose (09/13/2024 3:15 AM TELEVISION PROGRAM DIRECTOR) Glucose, POC 283(H) 70 - 199 mg/dL Comment: For Glucose values <35 mg/dl when Hematocrit is >60 mg/dl,the test may not accurately detect significant hypoglycemia,and testing in the Laboratory should be considered if clinically indicated. Blood 09/13/2024 3:15 AM TELEVISION PROGRAM DIRECTOR 09/13/2024 3:15 AM TELEVISION PROGRAM DIRECTOR Abeba Ash MD LAB POCT ORDERABLES - DEVICE Final Result Performing Organization Address [facility]/ZIP Co de Phone Number [facility] [address] [place] [address] * (ABNORMAL) Urinalysis reflex to microscopic and culture Urine (09/13/2024 2:59 AM TELEVISION PROGRAM DIRECTOR) Color, ur Yellow Yellow Clarity, ur Turbid(A) Clear [facility] Specific gravity, ur 1.016 1.003 - 1.030 [facility] pH, urine 5.5 [facility] Comment: Interpretive Data U rine pH is affected by diet, medications, systemic acid-base disturbances, and renal tubular function. pH may affect urinary stone formation. For example, urine pH below 6.0 may help reduce the tendency for calcium phosphate stones and pH greater than 6.0 may reduce the tendency for uric acid stone formation. Source: [facility] Current Interpretive Data was last revised on 2017 Protein, ur ql 1+(A) Negative [facility] Glucose, ur ql 4+(A) Negative [facility] Ketones, ur 2+(A) Negative [facility] Bilirubin, ur Negative Negative [facility] Blood, ur Trace(A) Negative [facility] Urobilinogen, ur <2.0 <2.0 mg/dL [facility] Nitrite, ur Negative Negative [facility] Leukocyte esterase, ur 4+(A) Negative [facility] UA reflex comment Reflex to microscopic UA will be performed. [facility] Urine 09/13/2024 2:59 AM TELEVISION PROGRAM DIRECTOR 09/13/2024 3:04 AM TELEVISION PROGRAM DIRECTOR Abeba Ash MD LAB MICROBIOLOGY - GENERAL O RDERABLES Final Result Performing Organization Address [facility] Co de Phone Number [facility] [address] [place] [address] * (ABNORMAL) Urinalysis, microscopic only (09/13/2024 2:59 AM TELEVISION PROGRAM DIRECTOR) WBC, ur 21-50(A) 0 - 5 /HPF RBC, ur >50(A) 0 - 2 /HPF [facility] Epithelial cells, squamous, ur 6-10(A) 0 - 5 /HPF [facility] Comment:Suggestive of contam ination. Consider recollection by clean catch. Bacteria, ur 4+(A) [facility] Culture Reflex Comment Reflex to urine culture will be performed. [facility] Urine 09/13/2024 2:59 AM TELEVISION PROGRAM DIRECTOR 09/13/2024 3:32 PM TELEVISION PROGRAM DIRECTOR Abeba Ash MD LAB URINE ORDERABLES Final R esult Performing Organization Address [facility] Co de Phone Number [facility] [address] [place] [address] * (ABNORMAL) Urine culture Urine (09/13/2024 2:59 AM TELEVISION PROGRAM DIRECTOR) Report Final Report: Greater than or equal to 100,000 colonies/ml of Lactobacillus species Susceptibility not performed on this isolate (.) Organism LACTOBACILLUS SPECIES [facility] Urine 09/13/2024 2:59 AM TELEVISION PROGRAM DIRECTOR 09/13/2024 3:41 PM TELEVISION PROGRAM DIRECTOR Narrative [facility] - 09/14/2024 12:08 PM TELEVISION PROGRAM DIRECTOR Urine culture reflexed based upon urinalysis results. us Abeba Ash MD LAB MICROBIOLOGY - GENERAL O RDERABLES Final Result Performing Organization Address [facility] Co de Phone Number [facility] [address] [place] [address] * (ABNORMAL) POCT glucose (09/13/2024 2:03 AM TELEVISION PROGRAM DIRECTOR) Glucose, POC 260(H) 70 - 199 mg/dL Comment: For Glucose values <35 mg/dl when Hematocrit is >60 mg/dl,the test may not accurately detect significant hypoglycemia,and testing in the Laboratory should be considered if clinically indicated. Blood 09/13/2024 2:03 AM TELEVISION PROGRAM DIRECTOR 09/13/2024 2:03 AM TELEVISION PROGRAM DIRECTOR Abeba Ash MD LAB POCT ORDERABLES - DEVICE Final Result Performing Organization Address City/[facility]/ZIP Co de Phone Number [facility] [address] Department [place] [address] * ECG 12 lead (09/13/2024 1:58 AM TELEVISION PROGRAM DIRECTOR) 09/13/2024 1:58 AM TELEVISION PROGRAM DIRECTOR Narrative [facility] - 09/13/2024 9:32 PM TELEVISION PROGRAM DIRECTOR Vent Rate: 134 bpm RR Interval: 445 msec PA Interval: 118 msec QRS Duration: 87 msec QT Interval: 331 msec QTC Interval: 410 msec P-R-T [place]: 66 - -15 - 124 degrees IMPRESSION: SINUS TACHYCARDIA WITH SHORT PA INTERVAL ST DEVIATION AND MODERATE T-WAVE ABNORMALITY, CONSIDER LATERAL ISCHEMIA ABNORMAL ECG Electronically Signed By: Rene Nicole MD Abeba Ash MD ECG ORDERABLES Final Result Performing Organization Address [facility] Co de Phone Number [facility] * (ABNORMAL) Respiratory pathogen panel Nasopharyngeal (09/13/2024 1:50 AM TELEVISION PROGRAM DIRECTOR) Pathologist [facility] Influenza A/2009 RNA Detected(A) Not Detected [facility] Influenza B RNA Not Detected Not Detected [facility] RSV RNA Not Detected Not Detected [facility] COVID-19 RNA Not Detected Not Detected [facility] Coronavirus 229E RNA Not Detected Not Detected [facility] Coronavirus HKU1 RNA Not Detected Not Detected [facility] Coronavirus NL63 RNA Not Detected Not Detected [facility] Coronavirus OC43 RNA Not Detected Not Detected [facility] Adenovirus DNA Not Detected Not Detected [facility] Metapneumovirus RNA Not Detected Not Detected [facility] Rhinovirus/Enterov irus RNA Not Detected Not Detected [facility] Parainfluenza 1 RNA Not Detected Not Detected [facility] Parainfluenza 2 RNA Not Detected Not Detected [facility] Parainfluenza 3 RNA Not Detected Not Detected [facility] Parainfluenza 4 RNA Not Detected Not Detected [facility] B. pertussis DNA Not Detected Not Detected [facility] B. parapertussis DNA Not Detected Not Detected [facility] C. pneumoniae DNA Not Detected Not Detected [facility] M. pneumoniae DNA Not Detected Not Detected [facility] Comment: Interpretive Data The [employer] FilmArray Respiratory Panel (RP2.1) assay is a [...] assay has FDA clearance for testing of BSW swabs. The performance characteristics of this assay have been determined by [facility] Laboratory. Current interpretive data was last revised on 2021. Nasopharyngeal 09/13/2024 1: 50 AM TELEVISION PROGRAM DIRECTOR 09/13/2024 2:04 AM TELEVISION PROGRAM DIRECTOR Narrative [facility] - 09/13/2024 2:57 AM TELEVISION PROGRAM DIRECTOR Is the Patient experiencing symptoms consistent with COVID?->Yes Surveillance testing for transplant patient?->No Abeba Ash MD LAB MICROBIOLOGY - GENERAL O RDERABLES Final Result [facility] [address] Department [place] [address] [facility] * (ABNORMAL) Blood culture Blood (09/13/2024 1:50 AM TELEVISION PROGRAM DIRECTOR) Direct Specimen Exam Stain: Gram Positive Cocci in clusters Test result called to and read back by Sandra Joiner RN on 09/14/2024 12:27:01 by PDC. Report Final Report: Staphylococcus aureus, methicillin susceptible Susceptibility reported on this organism on previous culture [id number] (.) [facility] Organism STAPHYLOCOCCUS AUREUS, METHICILLIN SUSCEPTIBLE [facility] Blood 09/13/2024 1:50 AM TELEVISION PROGRAM DIRECTOR 09/13/2024 2:17 AM TELEVISION PROGRAM DIRECTOR Narrative [facility] - 09/15/2024 10:49 AM TELEVISION PROGRAM DIRECTOR Collection->Peripheral Interpretive Data 1. Blood cultures are incubated and monitored continuously for 5 days (120 hours). The first negative report is issued within 24 hours of receipt in the laboratory. 2. All positive cultures are resulted and called to physicians/care providers as soon as they are detected. 3. A rapid molecular test for organism identification may be performed using the [employer] Blood Culture Identification panel. This assay detects microbial DNA in a blood culture broth. This assay has been cleared by the [place] Food and Drug Administration and its performance characteristics have been verified by the [facility] Microbiology Laboratory. Interpretive data was last revised on September 11, 2022. Abeba Ash MD LAB MICROBIOLOGY - GENERAL O RDERABLES Final Result Performing Organization Address [facility] de Phone Number [facility] [address] Department of [employer] [place], [place] [id number] * (ABNORMAL) Troponin T high-sensitivity (09/13/2024 1:46 AM TELEVISION PROGRAM DIRECTOR) Pathologist [facility] Trop T hs 116(H) <=14 ng/L Comment: Interpretive Data For further hscTnT resources including the diagnostic algorithm and an aid in interpretation, copy and paste this link: https://nrl.testcatalog.org/show/hsTrop Current Interpretive Data last revised 2020. Blood 09/13/2024 1:46 AM TELEVISION PROGRAM DIRECTOR 09/13/2024 1:53 AM TELEVISION PROGRAM DIRECTOR us Abeba Ash MD LAB BLOOD ORDERABLES Final R esult Performing Organization Address [facility] de Phone Number [facility] [address] [place] [address] * (ABNORMAL) Lactate (09/13/2024 1:46 AM TELEVISION PROGRAM DIRECTOR) [facility] Lactate 2.6(H) 0.7 - 2.0 mmol/L Blood 09/13/2024 1:46 AM TELEVISION PROGRAM DIRECTOR 09/13/2024 1:51 AM TELEVISION PROGRAM DIRECTOR us Abeba Ash MD LAB BLOOD ORDERABLES Final R esult Performing Organization Address [facility] de Phone Number [facility] [address] [place] [address] * (ABNORMAL) eGFR (09/13/2024 1:46 AM TELEVISION PROGRAM DIRECTOR) Pathologist [facility] eGFR 44(L) >=60 mL/min/1. 73 m2 [...] last reviewed 2021. Blood 09/13/2024 1:46 AM TELEVISION PROGRAM DIRECTOR 09/13/2024 1:53 AM TELEVISION PROGRAM DIRECTOR us Abeba Ash MD LAB BLOOD ORDERABLES Final R esult [facility] [address] Department [place] [address] * (ABNORMAL) Differential, auto (09/13/2024 1:46 AM TELEVISION PROGRAM DIRECTOR) Neutrophil abs 6.6(H) 1.5 - 6.5 K/cumm Imm gran abs 0.0 0.0 - 0.1 K/cumm [facility] Lymphocyte abs 0.5(L) 0.8 - 3.3 K/cumm [facility] Monocyte abs 0.7 0.2 - 0.8 K/cumm [facility] Eosinophil abs 0.0 0.0 - 0.5 K/cumm [facility] Basophil abs 0.0 0.0 - 0.1 K/cumm [facility] Neutrophil pct 84.7 % [facility] Comment: Interpretive Data Percent cell count reference ranges are not reported, since discordance with absolute values may lead to misinterpretation of CBC data. Current Interpretive Data was last revised on 2017. Imm gran pct 0.5 % [facility] Comment: Interpretive Data Percent cell count reference ranges are not reported, since discordance with absolute values may lead to misinterpretation of CBC data. Current Interpretive Data was last revised on 2017. Lymphocyte pct 5.8 % [facility] Comment: Interpretive Data Percent cell count reference ranges are not reported, since discordance with absolute values may lead to misinterpretation of CBC data. Current Interpretive Data was last revised on 2017. Monocyte pct 8.9 % [facility] Comment: Interpretive Data Percent cell count reference ranges are not reported, since discordance with absolute values may lead to misinterpretation of CBC data. Current Interpretive Data was last revised on 2017. Eosinophil pct 0.0 % [facility] Comment: Interpretive Data Percent cell count reference ranges are not reported, since discordance with absolute values may lead to misinterpretation of CBC data. Current Interpretive Data was last revised on 2017. Basophil pct 0.1 % [facility] Comment: Interpretive Data Percent cell count reference ranges are not reported, since discordance with absolute values may lead to misinterpretation of CBC data. Current Interpretive Data was last revised on 2017. Blood 09/13/2024 1:46 AM TELEVISION PROGRAM DIRECTOR 09/13/2024 1:53 AM TELEVISION PROGRAM DIRECTOR us Abeba Ash MD LAB BLOOD ORDERABLES Final R esult [facility] [address] Department [place] [address] * (ABNORMAL) Pro B-type natriuretic peptide (09/13/2024 1:46 AM TELEVISION PROGRAM DIRECTOR) NT-proBNP 6,745(H) <=300 pg/mL Comment: Interpretive Comments: [...] Revised Date: 2018. Blood 09/13/2024 1:46 AM TELEVISION PROGRAM DIRECTOR 09/13/2024 1:53 AM TELEVISION PROGRAM DIRECTOR Abeba Ash MD LAB BLOOD ORDERABLES Final R esult [facility] [address] Department [place] [address] * (ABNORMAL) CBC with auto differential (09/13/2024 1:46 AM TELEVISION PROGRAM DIRECTOR) WBC 7.7 3.8 - 9.9 K/cumm Hgb 11.9 11.9 - 15.5 g/dL [facility] Hct 39.4 35.6 - 45.5 % [facility] Plt 111(L) 150 - 400 K/cumm [facility] MPV 12.8(H) 9.1 - 12.3 fL [facility] RBC 4.15 3.90 - 5.20 M/cumm [facility] MCV 94.9 81.3 - 96.4 fL [facility] MCH 28.7 27.1 - 33.3 pg [facility] MCHC 30.2(L) 32.3 - 35.7 g/dL [facility] RDW CV 14.6 11.1 - 14.9 % [facility] RDW SD 50.7(H) 35.7 - 48.1 fL [facility] NRBC abs 0.00 0.00 - 0.01 K/cumm [facility] Blood 09/13/2024 1:46 AM TELEVISION PROGRAM DIRECTOR 09/13/2024 1:53 AM TELEVISION PROGRAM DIRECTOR Abeba Ash MD LAB BLOOD ORDERABLES Final R esult Performing Organization Address [facility] Co de Phone Number [facility] [address] [place] [address] * (ABNORMAL) aPTT (09/13/2024 1:46 AM TELEVISION PROGRAM DIRECTOR) aPTT 25(L) 28 - 38 sec Comment: Interpretive Data Heparin therapeutic range: 66.0 - 100.0 seconds. Range based on correlation with therapeutic heparin activity range of 0.3 - 0.7 Units/mL. Current interpretive data was last revised on 2023. Blood 09/13/2024 1:46 AM TELEVISION PROGRAM DIRECTOR 09/13/2024 1:53 AM TELEVISION PROGRAM DIRECTOR Abeba Ash MD LAB BLOOD ORDERABLES Final R [facility] Performing Organization Address [facility] de Phone Number [facility] [address] [facility] [place] [address] * Protime-INR (09/13/2024 1:46 AM TELEVISION PROGRAM DIRECTOR) PT 10.0 9.7 - 13.0 sec INR 0.93 0.90 - 1.20 [facility] Comment: Interpretive data Oral anticoagulant therapeutic ranges: Venous thromboembolism prophylaxis or treatment: 2.0-3.0 CARDIOLOGY Standard range: 2.0-3.0 High-intensity range: 2.5-3.5 Refer to indication-specific guidelines for appropriate target ranges for prosthetic heart valve replacement. Current interpretive data was last revised on 2019. Blood 09/13/2024 1:46 AM TELEVISION PROGRAM DIRECTOR 09/13/2024 1:53 AM TELEVISION PROGRAM DIRECTOR Result [facility] Abeba Ash MD LAB BLOOD ORDERABLES Final R esult Performing Organization Address [facility] Co de Phone Number [facility] [address] [facility] [place] [address] * Type and screen (09/13/2024 1:46 AM TELEVISION PROGRAM DIRECTOR) ABO Rh A Positive Charles, indirect Negative [facility] Blood 09/13/2024 1:46 AM TELEVISION PROGRAM DIRECTOR 09/13/2024 1:51 AM TELEVISION PROGRAM DIRECTOR Narrative [facility] - 09/13/2024 2:31 AM TELEVISION PROGRAM DIRECTOR Has the patient had Daratumumab or Isatuximab in the past 6 months?->Unknown Result [facility] Abeba Ash MD LAB BLOOD BANK TEST ORDERABL ES Final Result Performing Organization Address [facility] de Phone Number [facility] [address] [facility] [place] [address] * Phosphorus (09/13/2024 1:46 AM TELEVISION PROGRAM DIRECTOR) Phosphorus, pl 2.7 2.3 - 4.5 mg/dL Blood 09/13/2024 1:46 AM TELEVISION PROGRAM DIRECTOR 09/13/2024 1:53 AM TELEVISION PROGRAM DIRECTOR Abeba Ash MD LAB BLOOD ORDERABLES Final R esult Performing Organization Address [facility] Co de Phone Number [facility] [address] [facility] [place] [address] * Magnesium (09/13/2024 1:46 AM TELEVISION PROGRAM DIRECTOR) Magnesium 2.1 1.4 - 2.5 mg/dL Blood 09/13/2024 1:46 AM TELEVISION PROGRAM DIRECTOR 09/13/2024 1:53 AM TELEVISION PROGRAM DIRECTOR Abeba Ash MD LAB BLOOD ORDERABLES Final R esult Performing Organization Address [facility]/ZIP Co de Phone Number [facility] [address] Department [place] [address] * (ABNORMAL) Hemoglobin A1c (09/13/2024 1:46 AM TELEVISION PROGRAM DIRECTOR) [facility] Hgb A1C 9.1(H) 4.0 - 5.6 % Estimated Average Glucose 214 mg/dL [facility] Comment: The ADA recommends reporting an estimated Average Glucose (eAG) with all Hemoglobin A1c results using the equation derived from a study of 507 normal and diabetic adults. Minority populations were underrepresented and children were not included. (Diabetes Care 31:6868-5238, 2008). The eAG is not equivalent to a fasting glucose. Blood 09/13/2024 1:46 AM TELEVISION PROGRAM DIRECTOR 09/13/2024 1:53 AM TELEVISION PROGRAM DIRECTOR Abeba Ash MD LAB BLOOD ORDERABLES Final R esult Performing Organization Address [facility] de Phone Number [facility] [address] [place] [address] * (ABNORMAL) Comprehensive metabolic panel (09/13/2024 1:46 AM TELEVISION PROGRAM DIRECTOR) [facility] Sodium 151(H) 135 - 145 mmol/L Potassium, pl 4.0 3.3 - 4.9 mmol/L [facility] Chloride 110 97 - 110 mmol/L [facility] CO2 20(L) 22 - 32 mmol/L [facility] Anion gap 21(H) 2 - 15 mmol/L [facility] BUN 47(H) 6 - 25 mg/dL [facility] Creatinine 1.47(H) 0.60 - 1.10 mg/dL [facility] Glucose 264(H) 70 - 199 mg/dL [facility] Comment: Interpretive Data Fasting glucose >/= 126 [...] 2022. Calcium 9.2 8.5 - 10.3 mg/dL [facility] Bilirubin, total 0.3 0.1 - 1.2 mg/dL [facility] Protein, pl 7.0 6.5 - 8.5 g/dL [facility] Albumin 3.4(L) 3.5 - 5.0 g/dL [facility] Alk phos 202(H) 40 - 130 Units/L [facility] ALT 48(H) 7 - 45 Units/L [facility] AST 45 10 - 45 Units/L [facility] Blood 09/13/2024 1:46 AM TELEVISION PROGRAM DIRECTOR 09/13/2024 1:53 AM TELEVISION PROGRAM DIRECTOR us Abeba Ash MD LAB BLOOD ORDERABLES Final R esult Performing Organization Address City/[facility]/ZIP Co de Phone Number [facility] [address] [employer] [place], [place] [id number] * (ABNORMAL) POCT glucose (09/13/2024 1:30 AM TELEVISION PROGRAM DIRECTOR) Pathologist [facility] Glucose, POC 248(H) 70 - 199 mg/dL Comment: For Glucose values <35 mg/dl when Hematocrit is >60 mg/dl,the test may not accurately detect significant hypoglycemia,and testing in the Laboratory should be considered if clinically indicated. Blood 09/13/2024 1:30 AM TELEVISION PROGRAM DIRECTOR 09/13/2024 1:30 AM TELEVISION PROGRAM DIRECTOR us Abeba Ash MD LAB POCT ORDERABLES - DEVICE Final Result [facility] [address] [employer] [place], [place] [id number] * (ABNORMAL) Serum lipid panel (06/26/2014 8:11 AM TELEVISION PROGRAM DIRECTOR) [facility] Cholesterol 328(H) 40 - 199 mg/dl HISTORICAL [...] revised on 2012. Serum 06/26/2014 8:11 AM TELEVISION PROGRAM DIRECTOR Historical Provider LAB BLOOD ORDERABLES Salma pfeiffer Result HISTORICAL RESULTS * COLONOSCOPY REPORT (06/07/2014) Anatomical Region Laterality Modality Other Narrative 06/07/2014 Ordered by an unspecified provider. Historical Provider GI PROCEDURE ORDERABLES F inal Result from Last 3 Months or Most Recently Relevant to Health Maintenance Insurance [facility] ADV[facility]AGE [facility] HE[facility] ADV[facility]AGE IDPA IDPA [facility] AD[facility] Advance Directives For more information, please contact: [phone] * LIMITED - No CPR (Latest Code [...] MILLAN Daughter in Law Health Care Agent [phone] (Mobile ) Care Teams Chinese Herbalist Relationship Specialty Start Date End Date Donte Lucas PA [address] [place] [address] PCP - General Physician Raisin Washer 08/26/24
--- OUTSIDE RECORDS SUMMARY | 2024-10-28 13:15 | XMS_ITS | Encounter Summary ---
Author Organization [facility] Address [address] [place] [address] Care Team Providers Care Spring Repairer Helper Hand Name Role Phone Arnoldo Gary MD Primary Care Provider [phone] Encounter Details Date Type Department Care Team (Late st Contact Info) Description 01/25/2002 Inpatient Historical HIS INPATIENT IN BED Palak Shah MD [address] [place] [address] Say Patricio MD [address] [facility] [address] [place] [address] POISONING-ANTITUSSI VES (Primary Dx) Social History Tobacco Use Types Packs/Day Years Used Date Smoking Tobacco: Never Assessed Comments Unknown Sex and Gender Information Value Date Recorded Sex Assigned at Not on file Legal Sex Female 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
--- OUTSIDE RECORDS SUMMARY | 2024-10-28 13:15 | XMS_ITS | Encounter Summary ---
Author Organization [facility] Address [address] [place] [address] Care Team Providers Care Retail Sales Advisor Name Role Phone Rose Conn MD Unavailable Keith Goodwin MD Unavailable Ace Honeycutt MD Primary Care Provider [phone] Encounter Details Date Type Department Care Team (Late st Contact Info) Description 10/24/2024 Hospital Follow-up Call [facility] Unit [address] [place] [address] Florinda Shanks RN Social History Tobacco Use Types Packs/Day Years Used Date Smoking Tobacco: Every Day Cigarettes Smokeless Tobacco: Never Alcohol Use Standard Drinks/Week Comments Never 0 (1 standard drink = 0.6 oz pur e alcohol) [facility] Utilities Answer Date Recorded In the past 12 months has [facility] [employer], gas, oil, or water [email or web address] threatened to shut off services in your [...] were you homeless or living in a long-term (including now)? No 10/15/2024 Comments No Sex and Gender Information Value Date Recorded Sex Assigned at Female 08/31/2024 8:28 AM DRILLER HAND Legal Sex Female 8:37 PM CDT Gender [...] Assessment Author Status No 10/15/2024 12:23 PM DRILLER HAND Carolina, Jessica B, R N Active * [...] PM CDT Appointment [facility] [place] [address] Rose Conn MD [address] [place] [address] 01/10/2025 1:[address] [facility] [place] [place] [address] Rose Conn MD [address] [place] [address] 01/20/2025 3:15 PM CDT Office Visit [facility] [place] [address] Rose Conn MD [address] [place] [address] documented as of this encounter Visit Diagnoses Not on filedocumented in this encounter Additional Health Concerns Infection Onset Date Last Indicated Resolved Time MRSA Comment:Added from external infection. Source: [place] [place] [facility]. 12/24/2017 documented as of this encounter Care Teams Retail Sales Advisor Relationship Specialty Start Date End Date Ace Honeycutt MD [address] [place] [address] PCP - General FAMILY PRACTICE 04/29/24 Rose Conn MD [address] [place] [address] Consulting Physician CARDIOVASCULAR DISEASE 09/07/23 Keith Goodwin MD [address] [place] [address] Consulting Physician INTERNAL MEDICINE 09/22/23 documented as of this encounter
--- OUTSIDE RECORDS SUMMARY | 2024-10-28 13:15 | XMS_ITS | Continuity of Care Document ---
Author Organization [facility] Address [address] [place] [address] Phone Care Team Providers Care Recreation Leader Name Role Phone Unavailable Unavailable Unavailable Allergies, [...] ONCE DAILY - Active FreeStyle Carol 2 C[place]ick please issue one reader to monitor constant [...] Diagnoses Date Provider Providers Copied on Encounter [facility], [address] [place] [address], [address], tel:[phone] *[facility] Primary Care No Information 4 No Information [facility], [address] [place] [address], [address], tel:[phone] *[facility] Primary Care No Information 3 No Information [facility], [address] [place] [address], [address], tel:[phone] *[facility] Primary Care Body mass index [BMI] 32.0-32.9, adult 3 No Information OFFICE/OUTPA TIENT VISIT, EST [facility], [address] [place] [address], [address], tel:[phone] *[facility] Primary Care Diabetes (chief complaint)R efills (chief complaint) Chronic kidney disease, unspecified CKD stageType 2 diabetes mellitus with hyperglycemiaPa in in unspecified joint 3 No Information [facility], [address] [place] [address], [address], [place] tel:[phone] *[facility] Paigeza Primary Care No Information 3 No Information [facility], [address] [place] [address], [address], [place] tel:[phone] *[facility]ajan Freitas Primary Care Abnormal complete blood count 3 No Information OFFICE/OUTPA TIENT VISIT, [facility], [address] [place] [address], [address], [place] tel:[phone] *[facility] Fre[facility] Surgery clearance (chief complaint) Body mass index [BMI] 29.0-29.9, adultType 2 diabetes mellitus with hyperglycemiaPo lyneuropathyChr onic systolic (congestive) heart failureChronic kidney disease, unspecified CKD stageAt risk for falling 3 No Information [facility], [address] [place] [address], [address], [place] tel:[phone] *Sajan Quincy Primary Care No Information 3 No Information [facility], [address] [place] [address], [address], [place] tel:[phone] *Sajan Quincy Primary Care Polyneuropathy 3 No Information OFFICE/OUTPA TIENT VISIT, [facility], [address] [place] [address], [address], [place] tel:[phone] *[facility]cy [facility] ear pain bilateral (chief complaint)c hronic conditions (chief complaint)e luke (chief complaint)s ore under left breast (chief complaint) Body mass index [BMI] 31.0-31.9, adultCellulitis of breastAcute serous otitis media, bilateralChroni c systolic (congestive) heart failurePolyneur opathyChronic pain of left knee 3 No Information [facility], [address] [place] [address], [address], [place] tel:[phone] *[facility]ajan Quincy [facility] No Information 3 No Information OFFICE/OUTPA TIENT VISIT, [facility], [address] [place] [address], [address], tel:[phone] *[facility] Freitas [facility] pain (chief complaint)U TI (chief complaint)c hronic conditions (chief complaint) Pain in unspecified jointChronic kidney disease, unspecified CKD stageType 2 diabetes mellitus with hyperglycemiaBo dy mass index [BMI] 45.0-49.9, adultUTIChronic systolic (congestive) heart failureCardiomy opathy, unspecifiedAt risk for falling 3 No Information [facility], [address] [place] [address], [address], tel:[phone] *[facility]ajan Quincy [facility] No Information 3 No Information OFFICE/OUTPA TIENT VISIT, [facility], [address] [place] [address], [address], tel:[phone] *[facility] Freitas Primary [facility] New Patient (chief [...] guidance, and counseling completed Referral Referred To: [address] [place], [place], [phone] Ordered: Referrals: Oncology. [facility]. Evaluate and treat ordered Referral Ordered: tina -Nephrology (related to Type 2 diabetes mellitus with hyperglycemia) ordered Referral Referred To: tina Ordered: Referrals: Nephrology. tina. Location: [place]. Evaluate and treat ordered Referral Referred To: manda prince Ordered: Referrals: Endocrinology, Diabetes and Metabolism. [facility]. Evaluate and treat ordered Referral Ordered: [facility] -Neurology (related to Polyneuropathy) ordered Referral Referred To: [facility] Ordered: Referrals: Neurology. [facility]. Evaluate and treat ordered Referral Referred To: [facility] [address] [address] [place], [place], [id number] Ordered: Referrals: Orthopedic Surgery. [facility]. Location: [facility]. Evaluate and treat ordered Future Order: Radiol ogy Order US ABDOMEN COMPLETE ([id number]), Ordered on: Ordered Future Order: Lab Order CBC w/AU TO DIFF ([id number]), Ordered on: Ordered Future Order: Lab Order COMPREHE NSIVE METABOLIC PANEL ([id number]), Ordered on: Ordered Future Order: Lab Order GLYCOHEM OGLOBIN (A1c) ([id number]), Ordered on: Ordered Future Order: Lab Order Electroc ardiogram ([id number]), Ordered on: Ordered Future Order: Lab Order LIPID PA KAR ([id number]), Ordered on: Ordered Future Order: Lab Order THYROID STIMULATING HORMONE ([id number]), Ordered on: Ordered Future Order: Lab Order BNP (B-t ype Natriuretic Peptide) ([id number]), Sent on: Sent Future Order: Lab Order COMPREHE NSIVE METABOLIC PANEL ([id number]), Sent on: Sent Future Order: Lab Order CBC w/AU TO DIFF ([id number]), Sent on: Sent Future Order: Lab Order Electroc ardiogram ([id number]), Sent on: Sent Future Order: Radiol ogy Order CHEST 2 VW FRONT & LAT ([id number]), Sent on: Sent Future Order: Radiol ogy Order KNEE, LEFT, (1 OR 2 VIEWS) ([id number]), Ordered on: Ordered History Of Present Illness [...] symptoms include fatigue. New Patient Patient here zoey payton as [...]
--- OUTSIDE RECORDS SUMMARY | 2024-10-28 13:15 | XMS_ITS | Referral Summary ---
Author Organization [facility] er Address [address] [place] [address] Care Team Providers Care Population Geneticist Name Role Phone Donte Lucas Primary Care Provider Encounters Date Type Department Care Team Description 09/13/2024 1:12 AM CANDY WAFFLE ASSEMBLER - 10/01/2024 5:21 PM CANDY WAFFLE ASSEMBLER Hospital Encounter [facility] [address] [place] [address] Abeba Ash MD Striker, David [...] home health skilled care 08/26/2024 9:30 AM CANDY WAFFLE ASSEMBLER Office Visit [facility] Neurology [address] [place] [phone] Kaleb Davenport Si, MD Cerebrovascular accident [...] hematuria 09/22/2021 Coronary artery disease invo lving [place] coronary artery of [place] heart without angina pectoris 09/22/2021 Chronic pain [...] drink = 0.6 oz pur e alcohol) [facility] Utilities Answer Date Recorded In the past 12 months has th e electric, gas, oil, or water [employer] threatened to shut off services in your [...] often do you attend chur ch or latter day services? Never 09/13/2024 Do you belong to any clubs o r organizations such as amish groups, unions, fraternal or athletic groups, or [...] any time in the past 12 m [facility], were you homeless or living in a correction (including now)? No 09/13/2024 Personal Safety Answer Date Recorded Have you ever been in or are you currently in a harmful physical or emotional relationship or is someone making you feel afraid or unsafe? Patient unable to answer 09/13/2024 Comments No Sex and Gender Information Value Date Recorded Sex Assigned at Not on file Legal Sex Female 11:01 PM C[employer]Y WAFFLE ASSEMBLER Gender Identity Not on file Sexual Orientation Not on file Last Filed Vital Signs Vital Sign Reading Time Taken Comments Blood Pressure 148/70 10/01/2024 6:07 AM CANDY WAFFLE ASSEMBLER Pulse 74 10/01/2024 3:00 PM CANDY WAFFLE ASSEMBLER Temperature 36.4 C (97.6 F) 10/01/2024 3:07 AM CANDY WAFFLE ASSEMBLER Respiratory Rate 18 10/01/2024 3:07 AM CANDY WAFFLE ASSEMBLER Oxygen Saturation 93% 10/01/2024 2:52 PM CANDY WAFFLE ASSEMBLER Inhaled Oxygen Concentration - - Weight 110.3 kg (243 lb 2.7 oz) 09/23/2024 8:41 PM CANDY WAFFLE ASSEMBLER Height 165.1 cm (5' 5 ) 09/23/2024 8:41 PM CANDY WAFFLE ASSEMBLER Body Mass Index 40.47 09/23/2024 8:41 PM CANDY WAFFLE ASSEMBLER Plan of Treatment Not on file Procedures Procedure Name Priority Date/Time Associated Diagnosis Comments POCT GLUCOSE DEVICE Routine 10/01/2024 4 :34 PM CANDY WAFFLE ASSEMBLER POCT GLUCOSE DEVICE Routine 10/01/2024 11:48 AM CANDY WAFFLE ASSEMBLER XR CHEST 1 VIEW IP Routine 10/01/2024 9:10 AM CANDY WAFFLE ASSEMBLER EGFR Routine 10/01/2024 6:57 AM CANDY WAFFLE ASSEMBLER BASIC METABOLIC PANEL Routine 10/01/2024 6:57 AM CANDY WAFFLE ASSEMBLER MAGNESIUM Routine 10/01/2024 6:57 AM CANDY WAFFLE ASSEMBLER POCT GLUCOSE DEVICE Routine 10/01/2024 6 :04 AM CANDY WAFFLE ASSEMBLER POCT GLUCOSE DEVICE Routine 10/01/2024 2 :00 AM CANDY WAFFLE ASSEMBLER POCT GLUCOSE DEVICE Routine 09/30/2024 9 :45 PM CANDY WAFFLE ASSEMBLER POCT GLUCOSE DEVICE Routine 09/30/2024 4 :52 PM CANDY WAFFLE ASSEMBLER POCT GLUCOSE DEVICE Routine 09/30/2024 11:39 AM CANDY WAFFLE ASSEMBLER POCT GLUCOSE DEVICE Routine 09/30/2024 8 :36 AM CANDY WAFFLE ASSEMBLER POCT GLUCOSE DEVICE Routine 09/30/2024 5 :29 AM CANDY WAFFLE ASSEMBLER POCT GLUCOSE DEVICE Routine 09/30/2024 2 :22 AM CANDY WAFFLE ASSEMBLER POCT GLUCOSE DEVICE Routine 09/29/2024 8 :35 PM CANDY WAFFLE ASSEMBLER POCT GLUCOSE DEVICE Routine 09/29/2024 5 :35 PM CANDY WAFFLE ASSEMBLER EGFR Routine 09/29/2024 3:33 PM CANDY WAFFLE ASSEMBLER DIFFERENTIAL AUTO Routine 09/29/2024 3:3 3 PM CANDY WAFFLE ASSEMBLER COMPREHENSIVE METABOLIC PANEL Routine 09/29/2024 3:33 PM CANDY WAFFLE ASSEMBLER CBC WITH AUTO DIFFERENTIAL Routine 09/29/2024 3:33 PM CANDY WAFFLE ASSEMBLER POCT GLUCOSE DEVICE Routine 09/29/2024 1 :43 PM CANDY WAFFLE ASSEMBLER POCT GLUCOSE DEVICE Routine 09/29/2024 9 :49 AM CANDY WAFFLE ASSEMBLER POCT GLUCOSE DEVICE Routine 09/29/2024 7 :27 AM CANDY WAFFLE ASSEMBLER POCT GLUCOSE DEVICE Routine 09/29/2024 5 :31 AM CANDY WAFFLE ASSEMBLER POCT GLUCOSE DEVICE Routine 09/29/2024 1 :25 AM CANDY WAFFLE ASSEMBLER POCT GLUCOSE DEVICE Routine 09/28/2024 9 :14 PM CANDY WAFFLE ASSEMBLER POCT GLUCOSE DEVICE Routine 09/28/2024 5 :12 PM CANDY WAFFLE ASSEMBLER POCT GLUCOSE DEVICE Routine 09/28/2024 1 :43 PM CANDY WAFFLE ASSEMBLER POCT GLUCOSE DEVICE Routine 09/28/2024 9 :16 AM CANDY WAFFLE ASSEMBLER EGFR Routine 09/28/2024 7:09 AM CANDY WAFFLE ASSEMBLER DIFFERENTIAL AUTO Routine 09/28/2024 7:0 9 AM CANDY WAFFLE ASSEMBLER COMPREHENSIVE METABOLIC PANEL Routine 09/28/2024 7:09 AM CANDY WAFFLE ASSEMBLER CBC WITH AUTO DIFFERENTIAL Routine 09/28/2024 7:09 AM CANDY WAFFLE ASSEMBLER POCT GLUCOSE DEVICE Routine 09/28/2024 5 :42 AM CANDY WAFFLE ASSEMBLER POCT GLUCOSE DEVICE Routine 09/28/2024 1 :31 AM CANDY WAFFLE ASSEMBLER POCT GLUCOSE DEVICE Routine 09/27/2024 9 :14 PM CANDY WAFFLE ASSEMBLER POCT GLUCOSE DEVICE Routine 09/27/2024 5 :25 PM CANDY WAFFLE ASSEMBLER POCT GLUCOSE DEVICE Routine 09/27/2024 3 :13 PM CANDY WAFFLE ASSEMBLER FL MODIFIED BARIUM SWALLOW W VIDEO IP Routine 09/27/2024 2:20 PM CANDY WAFFLE ASSEMBLER POCT GLUCOSE DEVICE Routine 09/27/2024 10:05 AM CANDY WAFFLE ASSEMBLER ADD ON LAB TEST Add-On 09/27/2024 8:43 AM CANDY WAFFLE ASSEMBLER POCT GLUCOSE DEVICE Routine 09/27/2024 5 :57 AM CANDY WAFFLE ASSEMBLER IRON PROFILE W/ IBC Routine 09/27/2024 5 :42 AM CANDY WAFFLE ASSEMBLER EGFR Routine 09/27/2024 5:42 AM CANDY WAFFLE ASSEMBLER DIFFERENTIAL AUTO Routine 09/27/2024 5:4 2 AM CANDY WAFFLE ASSEMBLER COMPREHENSIVE METABOLIC PANEL Routine 09/27/2024 5:42 AM CANDY WAFFLE ASSEMBLER CBC WITH AUTO DIFFERENTIAL Routine 09/27/2024 5:42 AM CANDY WAFFLE ASSEMBLER POCT GLUCOSE DEVICE Routine 09/27/2024 2 :14 AM CANDY WAFFLE ASSEMBLER POCT GLUCOSE DEVICE Routine 09/26/2024 9 :41 PM CANDY WAFFLE ASSEMBLER POCT GLUCOSE DEVICE Routine 09/26/2024 6 :18 PM CANDY WAFFLE ASSEMBLER POCT GLUCOSE DEVICE Routine 09/26/2024 2 :51 PM CANDY WAFFLE ASSEMBLER CBC WITH AUTO DIFFERENTIAL STAT 09/26/2024 2:03 PM CANDY WAFFLE ASSEMBLER EGFR Routine 09/26/2024 1:25 PM CANDY WAFFLE ASSEMBLER DIFFERENTIAL AUTO Routine 09/26/2024 1:2 5 PM CANDY WAFFLE ASSEMBLER COMPREHENSIVE METABOLIC PANEL Routine 09/26/2024 1:25 PM CANDY WAFFLE ASSEMBLER CBC WITH AUTO DIFFERENTIAL Routine 09/26/2024 1:25 PM CANDY WAFFLE ASSEMBLER POCT GLUCOSE DEVICE Routine 09/26/2024 10:10 AM CANDY WAFFLE ASSEMBLER POCT GLUCOSE DEVICE Routine 09/26/2024 5 :04 AM CANDY WAFFLE ASSEMBLER C. DIFFICILE TESTING Routine 09/26/2024 2:18 AM CANDY WAFFLE ASSEMBLER POCT GLUCOSE DEVICE Routine 09/26/2024 12:01 AM CANDY WAFFLE ASSEMBLER POCT GLUCOSE DEVICE Routine 09/25/2024 8 :35 PM CANDY WAFFLE ASSEMBLER POCT GLUCOSE DEVICE Routine 09/25/2024 4 :36 PM CANDY WAFFLE ASSEMBLER POCT GLUCOSE DEVICE Routine 09/25/2024 11:55 AM CANDY WAFFLE ASSEMBLER POCT GLUCOSE DEVICE Routine 09/25/2024 8 :32 AM CANDY WAFFLE ASSEMBLER EGFR Routine 09/25/2024 8:32 AM CANDY WAFFLE ASSEMBLER DIFFERENTIAL AUTO Routine 09/25/2024 8:3 2 AM CANDY WAFFLE ASSEMBLER COMPREHENSIVE METABOLIC PANEL Routine 09/25/2024 8:32 AM CANDY WAFFLE ASSEMBLER CBC WITH AUTO DIFFERENTIAL Routine 09/25/2024 8:32 AM CANDY WAFFLE ASSEMBLER POCT GLUCOSE DEVICE Routine 09/25/2024 4 :49 AM CANDY WAFFLE ASSEMBLER POCT GLUCOSE DEVICE Routine 09/25/2024 12:48 AM CANDY WAFFLE ASSEMBLER POCT GLUCOSE DEVICE Routine 09/24/2024 8 :56 PM CANDY WAFFLE ASSEMBLER POCT GLUCOSE DEVICE Routine 09/24/2024 4 :20 PM CANDY WAFFLE ASSEMBLER POCT GLUCOSE DEVICE Routine 09/24/2024 12:13 PM CANDY WAFFLE ASSEMBLER XR CHEST 1 VIEW IP Routine 09/24/2024 8:18 AM CANDY WAFFLE ASSEMBLER POCT GLUCOSE DEVICE Routine 09/24/2024 4 :12 AM CANDY WAFFLE ASSEMBLER POCT GLUCOSE DEVICE Routine 09/24/2024 2 :44 AM CANDY WAFFLE ASSEMBLER POCT GLUCOSE DEVICE Routine 09/24/2024 1 :06 AM CANDY WAFFLE ASSEMBLER POCT GLUCOSE DEVICE Routine 09/24/2024 12:44 AM CANDY WAFFLE ASSEMBLER POCT GLUCOSE DEVICE Routine 09/24/2024 12:22 AM CANDY WAFFLE ASSEMBLER POCT GLUCOSE DEVICE Routine 09/23/2024 9 :34 PM CANDY WAFFLE ASSEMBLER POCT GLUCOSE DEVICE Routine 09/23/2024 4 :10 PM CANDY WAFFLE ASSEMBLER POCT GLUCOSE DEVICE Routine 09/23/2024 1 :10 PM CANDY WAFFLE ASSEMBLER POCT GLUCOSE DEVICE Routine 09/23/2024 12:18 PM CANDY WAFFLE ASSEMBLER POCT GLUCOSE DEVICE Routine 09/23/2024 11:55 AM CANDY WAFFLE ASSEMBLER POCT GLUCOSE DEVICE Routine 09/23/2024 11:54 AM CANDY WAFFLE ASSEMBLER POCT GLUCOSE DEVICE Routine 09/23/2024 7 :47 AM CANDY WAFFLE ASSEMBLER POCT GLUCOSE DEVICE Routine 09/23/2024 3 :27 AM CANDY WAFFLE ASSEMBLER POCT GLUCOSE DEVICE Routine 09/23/2024 1 :13 AM CANDY WAFFLE ASSEMBLER POCT GLUCOSE DEVICE Routine 09/23/2024 12:17 AM CANDY WAFFLE ASSEMBLER POCT GLUCOSE DEVICE Routine 09/22/2024 11:54 PM CANDY WAFFLE ASSEMBLER BLOOD GAS, ARTERIAL STAT 09/22/2024 8 :33 PM CANDY WAFFLE ASSEMBLER POCT GLUCOSE DEVICE Routine 09/22/2024 7 :46 PM CANDY WAFFLE ASSEMBLER POCT GLUCOSE DEVICE Routine 09/22/2024 4 :04 PM CANDY WAFFLE ASSEMBLER EXTUBATION Routine 09/22/2024 3:48 PM CANDY WAFFLE ASSEMBLER POCT GLUCOSE DEVICE Routine 09/22/2024 11:51 AM CANDY WAFFLE ASSEMBLER POCT GLUCOSE DEVICE Routine 09/22/2024 8 :42 AM CANDY WAFFLE ASSEMBLER POCT GLUCOSE DEVICE Routine 09/22/2024 4 :05 AM CANDY WAFFLE ASSEMBLER XR CHEST 1 VIEW IP Routine 09/22/2024 3:59 AM CANDY WAFFLE ASSEMBLER EGFR Routine 09/22/2024 2:24 AM CANDY WAFFLE ASSEMBLER CBC WITHOUT DIFFERENTIAL Routine 09/22/2024 2:24 AM CANDY WAFFLE ASSEMBLER MAGNESIUM Routine 09/22/2024 2:24 AM CANDY WAFFLE ASSEMBLER RENAL FUNCTION PANEL Routine 09/22/2024 2:24 AM CANDY WAFFLE ASSEMBLER POCT GLUCOSE DEVICE Routine 09/21/2024 11:58 PM CANDY WAFFLE ASSEMBLER POCT GLUCOSE DEVICE Routine 09/21/2024 7 :01 PM CANDY WAFFLE ASSEMBLER POCT GLUCOSE DEVICE Routine 09/21/2024 3 :10 PM CANDY WAFFLE ASSEMBLER POTASSIUM LEVEL STAT 09/21/2024 2:07 PM CANDY WAFFLE ASSEMBLER POCT GLUCOSE DEVICE Routine 09/21/2024 11:30 AM CANDY WAFFLE ASSEMBLER POCT GLUCOSE DEVICE Routine 09/21/2024 7 :19 AM CANDY WAFFLE ASSEMBLER XR CHEST 1 VIEW IP Routine 09/21/2024 4:44 AM CANDY WAFFLE ASSEMBLER POCT GLUCOSE DEVICE Routine 09/21/2024 3 :47 AM CANDY WAFFLE ASSEMBLER EGFR Routine 09/21/2024 1:48 AM CANDY WAFFLE ASSEMBLER PHOSPHORUS Routine 09/21/2024 1:48 AM CANDY WAFFLE ASSEMBLER BILIRUBIN, DIRECT Routine 09/21/2024 1:4 8 AM CANDY WAFFLE ASSEMBLER COMPREHENSIVE METABOLIC PANEL Routine 09/21/2024 1:48 AM CANDY WAFFLE ASSEMBLER CBC WITHOUT DIFFERENTIAL Routine 09/21/2024 1:48 AM CANDY WAFFLE ASSEMBLER MAGNESIUM Routine 09/21/2024 1:48 AM CANDY WAFFLE ASSEMBLER POCT GLUCOSE DEVICE Routine 09/20/2024 11:54 PM CANDY WAFFLE ASSEMBLER POCT GLUCOSE DEVICE Routine 09/20/2024 7 :03 PM CANDY WAFFLE ASSEMBLER POCT GLUCOSE DEVICE Routine 09/20/2024 3 :28 PM CANDY WAFFLE ASSEMBLER POCT GLUCOSE DEVICE Routine 09/20/2024 11:48 AM CANDY WAFFLE ASSEMBLER BLOOD GAS, ARTERIAL STAT 09/20/2024 10:54 AM CANDY WAFFLE ASSEMBLER XR CHEST 1 VIEW ED Urgent/IP Urgent 09/20/2024 9:17 AM CANDY WAFFLE ASSEMBLER POCT GLUCOSE DEVICE Routine 09/20/2024 7 :20 AM CANDY WAFFLE ASSEMBLER POCT GLUCOSE DEVICE Routine 09/20/2024 3 :37 AM CANDY WAFFLE ASSEMBLER EGFR Routine 09/20/2024 12:27 AM CANDY WAFFLE ASSEMBLER DIFFERENTIAL AUTO Routine 09/20/2024 12:27 AM CANDY WAFFLE ASSEMBLER COMPREHENSIVE METABOLIC PANEL Routine 09/20/2024 12:27 AM CANDY WAFFLE ASSEMBLER CBC WITH AUTO DIFFERENTIAL Routine 09/20/2024 12:27 AM CANDY WAFFLE ASSEMBLER POCT GLUCOSE DEVICE Routine 09/19/2024 11:00 PM CANDY WAFFLE ASSEMBLER POCT GLUCOSE DEVICE Routine 09/19/2024 7 :52 PM CANDY WAFFLE ASSEMBLER POCT GLUCOSE DEVICE Routine 09/19/2024 4 :55 PM CANDY WAFFLE ASSEMBLER POCT GLUCOSE DEVICE Routine 09/19/2024 12:31 PM CANDY WAFFLE ASSEMBLER POTASSIUM LEVEL Timed 09/19/2024 10:04 AM CANDY WAFFLE ASSEMBLER EEG Routine 09/19/2024 8:50 AM CANDY WAFFLE ASSEMBLER POCT GLUCOSE DEVICE Routine 09/19/2024 7 :53 AM CANDY WAFFLE ASSEMBLER POCT GLUCOSE DEVICE Routine 09/19/2024 3 :58 AM CANDY WAFFLE ASSEMBLER MANUAL DIFFERENTIAL Routine 09/19/2024 1 :46 AM CANDY WAFFLE ASSEMBLER EGFR Routine 09/19/2024 1:46 AM CANDY WAFFLE ASSEMBLER DIFFERENTIAL AUTO Routine 09/19/2024 1:4 6 AM CANDY WAFFLE ASSEMBLER CBC WITH AUTO DIFFERENTIAL Routine 09/19/2024 1:46 AM CANDY WAFFLE ASSEMBLER MAGNESIUM Routine 09/19/2024 1:46 AM CANDY WAFFLE ASSEMBLER PHOSPHORUS Routine 09/19/2024 1:46 AM CANDY WAFFLE ASSEMBLER COMPREHENSIVE METABOLIC PANEL Routine 09/19/2024 1:46 AM CANDY WAFFLE ASSEMBLER AMMONIA STAT 09/19/2024 1:07 AM CANDY WAFFLE ASSEMBLER POCT GLUCOSE DEVICE Routine 09/18/2024 11:58 PM CANDY WAFFLE ASSEMBLER POCT GLUCOSE DEVICE Routine 09/18/2024 9 :10 PM CANDY WAFFLE ASSEMBLER POCT GLUCOSE DEVICE Routine 09/18/2024 4 :18 PM CANDY WAFFLE ASSEMBLER POCT GLUCOSE DEVICE Routine 09/18/2024 12:07 PM CANDY WAFFLE ASSEMBLER DIC SCHISTOCYTES STAT 09/18/2024 8:13 AM CANDY WAFFLE ASSEMBLER DIC PLATELET STAT 09/18/2024 8:13 AM CANDY WAFFLE ASSEMBLER DIFFERENTIAL AUTO STAT 09/18/2024 8:1 3 AM CANDY WAFFLE ASSEMBLER CBC WITH AUTO DIFFERENTIAL STAT 09/18/2024 8:13 AM CANDY WAFFLE ASSEMBLER DIC PROFILE Routine 09/18/2024 8:13 AM CANDY WAFFLE ASSEMBLER POCT GLUCOSE DEVICE Routine 09/18/2024 7 :57 AM CANDY WAFFLE ASSEMBLER POCT GLUCOSE DEVICE Routine 09/18/2024 7 :56 AM CANDY WAFFLE ASSEMBLER EGFR Routine 09/18/2024 7:26 AM CANDY WAFFLE ASSEMBLER VITAMIN B12 Routine 09/18/2024 7:26 AM CANDY WAFFLE ASSEMBLER PHOSPHORUS Routine 09/18/2024 7:26 AM CANDY WAFFLE ASSEMBLER MAGNESIUM Routine 09/18/2024 7:26 AM CANDY WAFFLE ASSEMBLER COMPREHENSIVE METABOLIC PANEL Routine 09/18/2024 7:26 AM CANDY WAFFLE ASSEMBLER POCT GLUCOSE DEVICE Routine 09/18/2024 4 :28 AM CANDY WAFFLE ASSEMBLER DIC COAGULATION Routine 09/18/2024 4:20 AM CANDY WAFFLE ASSEMBLER POCT GLUCOSE DEVICE Routine 09/17/2024 11:57 PM CANDY WAFFLE ASSEMBLER POCT GLUCOSE DEVICE Routine 09/17/2024 8 :02 PM CANDY WAFFLE ASSEMBLER POCT GLUCOSE DEVICE Routine 09/17/2024 4 :21 PM CANDY WAFFLE ASSEMBLER EGFR Timed 09/17/2024 2:52 PM CANDY WAFFLE ASSEMBLER RENAL FUNCTION PANEL Timed 09/17/2024 2:52 PM CANDY WAFFLE ASSEMBLER POCT GLUCOSE DEVICE Routine 09/17/2024 12:23 PM CANDY WAFFLE ASSEMBLER POCT GLUCOSE DEVICE Routine 09/17/2024 7 :09 AM CANDY WAFFLE ASSEMBLER POCT GLUCOSE DEVICE Routine 09/17/2024 4 :42 AM CANDY WAFFLE ASSEMBLER MANUAL DIFFERENTIAL Routine 09/17/2024 4 :10 AM CANDY WAFFLE ASSEMBLER EGFR Routine 09/17/2024 4:10 AM CANDY WAFFLE ASSEMBLER HAPTOGLOBIN Routine 09/17/2024 4:10 AM CANDY WAFFLE ASSEMBLER THYROID FUNCTION CASCADE Routine 09/17/2024 4:10 AM CANDY WAFFLE ASSEMBLER MAGNESIUM Routine 09/17/2024 4:10 AM CANDY WAFFLE ASSEMBLER PHOSPHORUS Routine 09/17/2024 4:10 AM CANDY WAFFLE ASSEMBLER CBC WITH AUTO DIFFERENTIAL Routine 09/17/2024 4:10 AM CANDY WAFFLE ASSEMBLER COMPREHENSIVE METABOLIC PANEL Routine 09/17/2024 4:10 AM CANDY WAFFLE ASSEMBLER XR CHEST 1 VIEW IP Routine 09/17/2024 2:59 AM CANDY WAFFLE ASSEMBLER POCT GLUCOSE DEVICE Routine 09/16/2024 11:48 PM CANDY WAFFLE ASSEMBLER POCT GLUCOSE DEVICE Routine 09/16/2024 8 :12 PM CANDY WAFFLE ASSEMBLER POCT GLUCOSE DEVICE Routine 09/16/2024 4 :04 PM CANDY WAFFLE ASSEMBLER POCT GLUCOSE DEVICE Routine 09/16/2024 12:27 PM CANDY WAFFLE ASSEMBLER US VEIN DUPLEX LOWER EXTREMITY BILATERAL COMPLETE IP Routine 09/16/2024 11:24 AM CANDY WAFFLE ASSEMBLER WA INSJ NON-TUNNELED CENTRAL VENOUS CATH AGE 4 YR/> Routine 09/16/2024 8:53 AM CANDY WAFFLE ASSEMBLER MSSA bacteremia BLOOD CULTURE STAT 09/16/2024 8:53 AM CANDY WAFFLE ASSEMBLER BLOOD CULTURE STAT 09/16/2024 8:45 AM CANDY WAFFLE ASSEMBLER POCT GLUCOSE DEVICE Routine 09/16/2024 7 :33 AM CANDY WAFFLE ASSEMBLER MANUAL DIFFERENTIAL STAT 09/16/2024 5 :30 AM CANDY WAFFLE ASSEMBLER CBC WITH AUTO DIFFERENTIAL STAT 09/16/2024 5:30 AM CANDY WAFFLE ASSEMBLER POCT GLUCOSE DEVICE Routine 09/16/2024 5 :23 AM CANDY WAFFLE ASSEMBLER XR CHEST 1 VIEW Routine 09/16/2024 4:37 AM CANDY WAFFLE ASSEMBLER TRIGLYCERIDES Routine 09/16/2024 4:05 AM CANDY WAFFLE ASSEMBLER EGFR Routine 09/16/2024 4:05 AM CANDY WAFFLE ASSEMBLER MAGNESIUM Routine 09/16/2024 4:05 AM CANDY WAFFLE ASSEMBLER RENAL FUNCTION PANEL Routine 09/16/2024 4:05 AM CANDY WAFFLE ASSEMBLER BLOOD CULTURE STAT 09/16/2024 4:05 AM CANDY WAFFLE ASSEMBLER POCT GLUCOSE DEVICE Routine 09/16/2024 3 :45 AM CANDY WAFFLE ASSEMBLER MRI BRAIN WO CONTRAST IP Routine 09/16/2024 1:48 AM CANDY WAFFLE ASSEMBLER POCT GLUCOSE DEVICE Routine 09/16/2024 1 :06 AM CANDY WAFFLE ASSEMBLER POCT GLUCOSE DEVICE Routine 09/16/2024 12:01 AM CANDY WAFFLE ASSEMBLER POCT GLUCOSE DEVICE Routine 09/15/2024 9 :09 PM CANDY WAFFLE ASSEMBLER POCT GLUCOSE DEVICE Routine 09/15/2024 7 :41 PM CANDY WAFFLE ASSEMBLER POCT GLUCOSE DEVICE Routine 09/15/2024 5 :12 PM CANDY WAFFLE ASSEMBLER POCT GLUCOSE DEVICE Routine 09/15/2024 3 :05 PM CANDY WAFFLE ASSEMBLER AEROBIC CULTURE AND GRAM STAIN Routine 09/15/2024 1:57 PM CANDY WAFFLE ASSEMBLER TRANSESOPHAGEAL ECHO (DEMI) W DOPPLER/CF WO CONTRAST Routine 09/15/2024 1:43 PM CANDY WAFFLE ASSEMBLER POCT GLUCOSE DEVICE Routine 09/15/2024 1 :05 PM CANDY WAFFLE ASSEMBLER XR CHEST 1 VIEW Critical/Life- Threatening 09/15/2024 11:41 AM CANDY WAFFLE ASSEMBLER BLOOD GAS, ARTERIAL STAT 09/15/2024 11:34 AM CANDY WAFFLE ASSEMBLER POCT GLUCOSE DEVICE Routine 09/15/2024 11:07 AM CANDY WAFFLE ASSEMBLER INTUBATION Routine 09/15/2024 10:31 AM CANDY WAFFLE ASSEMBLER Toxic metabolic encephalopathy MONITOR EXHALED CO2 Routine 09/15/2024 10:30 AM CANDY WAFFLE ASSEMBLER POCT GLUCOSE DEVICE Routine 09/15/2024 9 :16 AM CANDY WAFFLE ASSEMBLER POCT GLUCOSE DEVICE Routine 09/15/2024 7 :06 AM CANDY WAFFLE ASSEMBLER POCT GLUCOSE DEVICE Routine 09/15/2024 5 :27 AM CANDY WAFFLE ASSEMBLER POCT GLUCOSE DEVICE Routine 09/15/2024 3 :51 AM CANDY WAFFLE ASSEMBLER APTT Timed 09/15/2024 3:48 AM CANDY WAFFLE ASSEMBLER XR CHEST 1 VIEW IP Routine 09/15/2024 3:41 AM CANDY WAFFLE ASSEMBLER EGFR Routine 09/15/2024 1:50 AM CANDY WAFFLE ASSEMBLER PHOSPHORUS Routine 09/15/2024 1:50 AM CANDY WAFFLE ASSEMBLER BILIRUBIN, DIRECT Routine 09/15/2024 1:5 0 AM CANDY WAFFLE ASSEMBLER COMPREHENSIVE METABOLIC PANEL Routine 09/15/2024 1:50 AM CANDY WAFFLE ASSEMBLER CBC WITHOUT DIFFERENTIAL Routine 09/15/2024 1:50 AM CANDY WAFFLE ASSEMBLER MAGNESIUM Routine 09/15/2024 1:50 AM CANDY WAFFLE ASSEMBLER POCT GLUCOSE DEVICE Routine 09/15/2024 12:53 AM CANDY WAFFLE ASSEMBLER POCT GLUCOSE DEVICE Routine 09/14/2024 11:15 PM CANDY WAFFLE ASSEMBLER APTT Timed 09/14/2024 9:19 PM CANDY WAFFLE ASSEMBLER POCT GLUCOSE DEVICE Routine 09/14/2024 9 :16 PM CANDY WAFFLE ASSEMBLER POCT GLUCOSE DEVICE Routine 09/14/2024 7 :20 PM CANDY WAFFLE ASSEMBLER POCT GLUCOSE DEVICE Routine 09/14/2024 6 :16 PM CANDY WAFFLE ASSEMBLER POCT GLUCOSE DEVICE Routine 09/14/2024 4 :55 PM CANDY WAFFLE ASSEMBLER POCT GLUCOSE DEVICE Routine 09/14/2024 4 :10 PM CANDY WAFFLE ASSEMBLER POCT GLUCOSE DEVICE Routine 09/14/2024 3 :03 PM CANDY WAFFLE ASSEMBLER EGFR Timed 09/14/2024 1:05 PM CANDY WAFFLE ASSEMBLER RENAL FUNCTION PANEL Timed 09/14/2024 1:05 PM CANDY WAFFLE ASSEMBLER APTT Timed 09/14/2024 1:05 PM CANDY WAFFLE ASSEMBLER POCT GLUCOSE DEVICE Routine 09/14/2024 12:55 PM CANDY WAFFLE ASSEMBLER POCT GLUCOSE DEVICE Routine 09/14/2024 12:01 PM CANDY WAFFLE ASSEMBLER POCT GLUCOSE DEVICE Routine 09/14/2024 11:05 AM CANDY WAFFLE ASSEMBLER POCT GLUCOSE DEVICE Routine 09/14/2024 10:04 AM CANDY WAFFLE ASSEMBLER BLOOD CULTURE STAT 09/14/2024 9:42 AM CANDY WAFFLE ASSEMBLER BLOOD CULTURE STAT 09/14/2024 9:42 AM CANDY WAFFLE ASSEMBLER POCT GLUCOSE DEVICE Routine 09/14/2024 8 :56 AM CANDY WAFFLE ASSEMBLER BLOOD GAS, ARTERIAL STAT 09/14/2024 8 :08 AM CANDY WAFFLE ASSEMBLER POCT GLUCOSE DEVICE Routine 09/14/2024 7 :50 AM CANDY WAFFLE ASSEMBLER APTT Timed 09/14/2024 6:06 AM CANDY WAFFLE ASSEMBLER POCT GLUCOSE DEVICE Routine 09/14/2024 4 :10 AM CANDY WAFFLE ASSEMBLER XR CHEST 1 VIEW IP Routine 09/14/2024 3:10 AM CANDY WAFFLE ASSEMBLER MANUAL DIFFERENTIAL Routine 09/14/2024 1 :59 AM CANDY WAFFLE ASSEMBLER EGFR Routine 09/14/2024 1:59 AM CANDY WAFFLE ASSEM[employer] PHOSPHORUS Routine 09/14/2024 1:59 AM [employer] BILIRUBIN, DIRECT Routine 09/14/2024 1:5 9 AM [employer] COMPREHENSIVE METABOLIC PANEL Routine 09/14/2024 1:59 AM [employer] CBC WITHOUT DIFFERENTIAL Routine 09/14/2024 1:59 AM [employer] MAGNESIUM Routine 09/14/2024 1:59 AM [employer] POCT GLUCOSE DEVICE Routine 09/14/2024 12:41 AM [employer] APTT Timed 09/13/2024 9:58 PM [employer] XR ABDOMEN ERECT AND OR DECUBITS 2 VIEWS IP Routine 09/13/2024 9:41 PM [employer] POCT GLUCOSE DEVICE Routine 09/13/2024 7 :57 PM [employer] EGFR Timed 09/13/2024 6:33 PM [employer] RENAL FUNCTION PANEL Timed 09/13/2024 6:33 PM [employer] ECG 12-LEAD STAT 09/13/2024 5:24 PM [employer] POCT GLUCOSE DEVICE Routine 09/13/2024 4 :29 PM [employer] POCT GLUCOSE DEVICE Routine 09/13/2024 3 :18 PM [employer] POCT GLUCOSE DEVICE Routine 09/13/2024 2 :29 PM [employer] APTT Timed 09/13/2024 2:28 PM [employer] POCT GLUCOSE DEVICE Routine 09/13/2024 1 :10 PM [employer] EGFR Timed 09/13/2024 12:22 PM [employer] PHOSPHORUS Timed 09/13/2024 12:22 PM [employer] MAGNESIUM Timed 09/13/2024 12:22 PM [employer] BASIC METABOLIC PANEL Timed 09/13/2024 12:22 PM [employer] POCT GLUCOSE DEVICE Routine 09/13/2024 12:20 PM [employer] US CAROTIDS DUPLEX BILATERAL IP Routine 09/13/2024 11:55 AM [employer] TRANSTHORACIC ECHO (TTE) COMPLETE W DOPPLER/CF W CONTRAST Routine 09/13/2024 11:24 AM [employer] POCT GLUCOSE DEVICE Routine 09/13/2024 11:12 AM [employer] URINALYSIS, MICROSCOPIC ONLY Routine 09/13/2024 9:45 AM [employer] DIC SCHISTOCYTES STAT 09/13/2024 9:45 AM [employer] DIC PLATELET STAT 09/13/2024 9:45 AM [employer] DIC COAGULATION STAT 09/13/2024 9:45 AM [employer] DRUGS OF ABUSE SCREEN, URINE WITHOUT CONFIRMATION Routine 09/13/2024 9:45 AM [employer] HIT ANTIBODIES W/REFLEX TO SEROTONIN RELEASE ASSAY ([facility]) Routine 09/13/2024 9:45 AM [employer] DIC PROFILE STAT 09/13/2024 9:45 AM [employer] AMMONIA STAT 09/13/2024 9:45 AM [employer] URINE CULTURE Routine 09/13/2024 9:45 AM [employer] URINALYSIS AND REFLEX TO MICROSCOPIC AND CULTURE Routine 09/13/2024 9:45 AM [employer] POCT GLUCOSE DEVICE Routine 09/13/2024 9 :31 AM [employer] ADD ON LAB TEST Add-On 09/13/2024 9:25 AM [employer] ADD ON LAB TEST Add-On 09/13/2024 9:25 AM [employer] XR CHEST 1 VIEW Critical/Life- Threatening 09/13/2024 8:30 AM [employer] LIPASE Timed 09/13/2024 8:11 AM [employer] AMYLASE Timed 09/13/2024 8:11 AM [employer] BETA-HYDROXYBUTYRATE Timed 09/13/2024 8:11 AM [employer] EGFR Timed 09/13/2024 8:11 AM [employer] APTT Timed 09/13/2024 8:11 AM [employer] PHOSPHORUS Timed 09/13/2024 8:11 AM [employer] MAGNESIUM Timed 09/13/2024 8:11 AM [employer] BASIC METABOLIC PANEL Timed 09/13/2024 8:11 AM [employer] BLOOD GAS, ARTERIAL STAT 09/13/2024 7 :58 AM [employer] POCT GLUCOSE DEVICE Routine 09/13/2024 7 :54 AM [employer] POCT GLUCOSE DEVICE Routine 09/13/2024 6 :04 AM [employer] BLOOD CULTURE Routine 09/13/2024 5:22 AM [employer] POCT GLUCOSE DEVICE Routine 09/13/2024 5 :06 AM [employer] POCT GLUCOSE DEVICE Routine 09/13/2024 4 :05 [address] [employer] CT HEAD WO CONTRAST ED Urgent/IP Urgent 09/13/2024 3:40 AM [employer] POCT GLUCOSE DEVICE Routine 09/13/2024 3 :15 AM [employer] URINALYSIS, MICROSCOPIC ONLY Routine 09/13/2024 2:59 AM [employer] URINE CULTURE Routine 09/13/2024 2:59 AM [employer] URINALYSIS AND REFLEX TO MICROSCOPIC AND CULTURE Routine 09/13/2024 2:59 AM [employer] POCT GLUCOSE DEVICE Routine 09/13/2024 2 :03 AM [employer] ECG 12-LEAD STAT 09/13/2024 1:58 AM [employer] RESPIRATORY PATHOGEN PANEL Routine 09/13/2024 1:50 AM [employer] BLOOD CULTURE Routine 09/13/2024 1:50 AM [employer] EGFR STAT 09/13/2024 1:46 AM [employer] DIFFERENTIAL AUTO STAT 09/13/2024 1:4 6 AM [employer] HEMOGLOBIN A1C Routine 09/13/2024 1:46 AM [employer] TROPONIN T HIGH-SENSITIVITY Routine 09/13/2024 1:46 AM [employer] CBC WITH AUTO DIFFERENTIAL STAT 09/13/2024 1:46 AM [employer] PROTIME-INR STAT 09/13/2024 1:46 AM [employer] APTT STAT 09/13/2024 1:46 AM [employer] PRO B-TYPE NATRIURETIC PEPTIDE STAT 09/13/2024 1:46 AM [employer] PHOSPHORUS STAT 09/13/2024 1:46 AM [employer] MAGNESIUM STAT 09/13/2024 1:46 AM [employer] LACTATE STAT 09/13/2024 1:46 AM [employer] COMPREHENSIVE METABOLIC PANEL STAT 09/13/2024 1:46 AM [employer] TYPE AND SCREEN STAT 09/13/2024 1:46 AM [employer] POCT GLUCOSE DEVICE Routine 09/13/2024 1 :30 AM [employer] SERUM LIPID PANEL Routine 06/26/2014 8:1 1 AM [employer] COLONOSCOPY REPORT 06/07/2014 from Last 3 Months or Most Recently Relevant to Health Maintenance Results * POCT glucose (10/01/2024 4:34 PM [employer]) Glucose, POC 143 70 - 199 mg/dL Comment: For Glucose values <35 mg/dl when Hematocrit is >60 mg/dl,the test may not accurately detect significant hypoglycemia,and testing in the Laboratory should be considered if clinically indicated. Blood 10/01/2024 4:34 PM [employer] 10/01/2024 4:34 PM [employer] Chai Beck MD LAB POCT ORDERABLES - DEVICE Final Result Performing Organization Address [facility] Co de Phone Number [facility] [address] Department [place] [address] * POCT glucose (10/01/2024 11:48 AM [employer]) Glucose, POC 145 70 - 199 mg/dL Comment: For Glucose values <35 mg/dl when Hematocrit is >60 mg/dl,the test may not accurately detect significant hypoglycemia,and testing in the Laboratory should be considered if clinically indicated. Blood 10/01/2024 11:4 8 AM [employer] 10/01/2024 11:48 AM [employer] Chai Beck MD LAB POCT ORDERABLES - DEVICE Final Result Performing Organization Address [facility] Co de Phone Number [facility] [address] Department [place] [address] * XR Chest 1 View (10/01/2024 9:10 AM [employer]) Anatomical Region Laterality Modality Body, Chest N/A Computed Radiogr aphy 10/01/2024 9:17 AM [employer] Impressions 10/01/2024 9:17 AM [employer] Comparison 09/24/2024 Improvement in the left lower lobe and lingular consolidation. There is now a small left pleural effusion. Right lung is clear. There is no pneumothorax. The cardiomediastinal silhouette is unchanged.. Electronically signed by: Phillip Mathis MD Narrative 10/01/2024 9:17 AM [employer] Chest one view HISTORY: Recent pneumonia treated [...] t * (ABNORMAL) eGFR (10/01/2024 6:57 AM [employer]) eGFR 54(L) >=60 mL/min/1. 73 m2 Comment: [...] last reviewed 2021. Blood 10/01/2024 6:57 AM [employer] 10/01/2024 7:30 AM [employer] us Timothy Augustin MD LAB BLOOD ORDERABLES Final Re sult [facility] [address] Department [place] [address] * Magnesium (10/01/2024 6:57 AM [employer]ER) Pathologist [facility] Magnesium 1.5 1.4 - 2.5 mg/dL Blood 10/01/2024 6:57 AM [employer] 10/01/2024 7:30 AM [employer] Arnulfo Jordan MD LAB BLOOD ORDERABLES Final Result Performing Organization Address City/[facility]/ZIP Co de Phone Number [facility] [address] [place] [address] * (ABNORMAL) Basic metabolic panel (10/01/2024 6:57 AM [employer]ER) Pathologist [facility] Sodium 140 135 - 145 mmol/L Potassium, pl 2.9(L) 3.3 - 4.9 mmol/L [facility] Chloride 108 97 - 110 mmol/L [facility] CO2 22 22 - 32 mmol/L [facility] Anion gap 10 2 - 15 mmol/L [facility] BUN 22 6 - 25 mg/dL [facility] Creatinine 1.23(H) 0.60 - 1.10 mg/dL [facility] Glucose 162 70 - 199 mg/dL [facility] Comment: Interpretive Data Fasting glucose >/= 126 [...] 2022. Calcium 8.0(L) 8.5 - 10.3 mg/dL [facility] Blood 10/01/2024 6:57 AM [employer] 10/01/2024 7:30 AM [employer] Timothy Augustin MD LAB BLOOD ORDERABLES Final Re sult Performing Organization Address City/[facility]/ZIP Co de Phone Number [facility] [address] [place] [address] * POCT glucose (10/01/2024 6:04 AM [employer]) Glucose, POC 179 70 - 199 mg/dL Comment: For Glucose values <35 mg/dl when Hematocrit is >60 mg/dl,the test may not accurately detect significant hypoglycemia,and testing in the Laboratory should be considered if clinically indicated. Blood 10/01/2024 6:04 AM [employer] 10/01/2024 6:04 AM [employer] Arnulfo Jordan MD LAB POCT ORDERABLES - DEVIC E Final Result [facility] [address] [place] [address] * POCT glucose (10/01/2024 2:00 AM [employer]) Glucose, POC 168 70 - 199 mg/dL Comment: For Glucose values <35 mg/dl when Hematocrit is >60 mg/dl,the test may not accurately detect significant hypoglycemia,and testing in the Laboratory should be considered if clinically indicated. Blood 10/01/2024 2:00 AM [employer] 10/01/2024 2:00 AM [employer] Arnulfo Jordan MD LAB POCT ORDERABLES - DEVIC E Final Result Performing Organization Address City/[facility]/ZIP Co de Phone Number [facility] [address] [place] [address] * POCT glucose (09/30/2024 9:45 PM [employer]) Glucose, POC 173 70 - 199 mg/dL Comment: For Glucose values <35 mg/dl when Hematocrit is >60 mg/dl,the test may not accurately detect significant hypoglycemia,and testing in the Laboratory should be considered if clinically indicated. Blood 09/30/2024 9:45 PM [employer] 09/30/2024 9:45 PM [employer] Arnulfo Jordan MD LAB POCT ORDERABLES - DEVIC E Final Result Performing Organization Address [facility] de Phone Number [facility] [address] [facility] [place] [address] * (ABNORMAL) POCT glucose (09/30/2024 4:52 PM [employer]) Glucose, POC 213(H) 70 - 199 mg/dL Comment: For Glucose values <35 mg/dl when Hematocrit is >60 mg/dl,the test may not accurately detect significant hypoglycemia,and testing in the Laboratory should be considered if clinically indicated. Blood 09/30/2024 4:52 PM [employer] 09/30/2024 4:52 PM [employer] Arnulfo Jordan MD LAB POCT ORDERABLES - DEVIC E Final Result Performing Organization Address [facility] de Phone Number [facility] [address] [facility] [place] [address] * POCT glucose (09/30/2024 11:39 AM [employer]) Glucose, POC 139 70 - 199 mg/dL Comment: For Glucose values <35 mg/dl when Hematocrit is >60 mg/dl,the test may not accurately detect significant hypoglycemia,and testing in the Laboratory should be considered if clinically indicated. Blood 09/30/2024 11:3 9 AM [employer] 09/30/2024 11:39 AM [employer] Arnulfo oJrdan MD LAB POCT ORDERABLES - DEVIC E Final Result Performing Organization Address [facility] de Phone Number [facility] [address] [facility] [place] [address] * POCT glucose (09/30/2024 8:36 AM [employer]) Glucose, POC 116 70 - 199 mg/dL Comment: For Glucose values <35 mg/dl when Hematocrit is >60 mg/dl,the test may not accurately detect significant hypoglycemia,and testing in the Laboratory should be considered if clinically indicated. Blood 09/30/2024 8:36 AM [employer]ER 09/30/2024 8:36 AM [employer]ER Arnulfo Jordan MD LAB POCT ORDERABLES - DEVIC E Final Result Performing Organization Address [facility] Co de Phone Number [facility] [address] [facility] [place] [address] * POCT glucose (09/30/2024 5:29 AM [employer]ER) Glucose, POC 110 70 - 199 mg/dL Comment: For Glucose values <35 mg/dl when Hematocrit is >60 mg/dl,the test may not accurately detect significant hypoglycemia,and testing in the Laboratory should be considered if clinically indicated. Blood 09/30/2024 5:29 AM [employer]ER 09/30/2024 5:29 AM [employer]ER Arnulfo Jordan MD LAB POCT ORDERABLES - DEVIC E Final Result Performing Organization Address [facility] de Phone Number [facility] [address] [place] [address] * POCT glucose (09/30/2024 2:22 AM [employer]) Glucose, POC 183 70 - 199 mg/dL Comment: For Glucose values <35 mg/dl when Hematocrit is >60 mg/dl,the test may not accurately detect significant hypoglycemia,and testing in the Laboratory should be considered if clinically indicated. Blood 09/30/2024 2:22 AM [employer]BLER 09/30/2024 2:22 AM [employer]ER Arnulfo Jordan MD LAB POCT ORDERABLES - DEVIC E Final Result Performing Organization Address [facility] Co de Phone Number [facility] [address] [facility] [place] [address] * POCT glucose (09/29/2024 8:35 PM [employer]ER) Glucose, POC 192 70 - 199 mg/dL Comment: For Glucose values <35 mg/dl when Hematocrit is >60 mg/dl,the test may not accurately detect significant hypoglycemia,and testing in the Laboratory should be considered if clinically indicated. Blood 09/29/2024 8:35 PM [employer]ER 09/29/2024 8:35 PM [employer]ER Arnulfo Jordan MD LAB POCT ORDERABLES - DEVIC E Final Result Performing Organization Address [facility] de Phone Number [facility] [address] [facility] [place] [address] * (ABNORMAL) POCT glucose (09/29/2024 5:35 PM [employer]BLER) [facility] Glucose, POC 203(H) 70 - 199 mg/dL Comment: For Glucose values <35 mg/dl when Hematocrit is >60 mg/dl,the test may not accurately detect significant hypoglycemia,and testing in the Laboratory should be considered if clinically indicated. Blood 09/29/2024 5:35 PM [employer]BLER 09/29/2024 5:35 PM [employer]ER Arnulfo Jordan MD LAB POCT ORDERABLES - DEVIC E Final Result Performing Organization Address [facility] de Phone Number [facility] [address] [place] [address] * (ABNORMAL) eGFR (09/29/2024 3:33 PM [employer]BLER) Pathologist [facility] eGFR 58(L) >=60 mL/min/1. 73 m2 Comment: [...] last reviewed 2021. Blood 09/29/2024 3:33 PM [employer] 09/29/2024 3:45 PM [employer] us Arnulfo Jordan MD LAB BLOOD ORDERABLES Final Result [facility] [address] Department [place] [address] * (ABNORMAL) Differential, auto (09/29/2024 3:33 PM [employer]) Neutrophil abs 6.6(H) 1.5 - 6.5 K/cumm Imm gran abs 0.1 0.0 - 0.1 K/cumm [facility] Lymphocyte abs 0.9 0.8 - 3.3 K/cumm [facility] Monocyte abs 0.6 0.2 - 0.8 K/cumm [facility] Eosinophil abs 0.1 0.0 - 0.5 K/cumm [facility] Basophil abs 0.1 0.0 - 0.1 K/cumm [facility] Neutrophil pct 79.1 % [facility] Comment: Interpretive Data Percent cell count reference ranges are not reported, since discordance with absolute values may lead to misinterpretation of CBC data. Current Interpretive Data was last revised on 2017. Imm gran pct 0.6 % [facility] Comment: Interpretive Data Percent cell count reference ranges are not reported, since discordance with absolute values may lead to misinterpretation of CBC data. Current Interpretive Data was last revised on 2017. Lymphocyte pct 11.1 % [facility] Comment: Interpretive Data Percent cell count reference ranges are not reported, since discordance with absolute values may lead to misinterpretation of CBC data. Current Interpretive Data was last revised on 2017. Monocyte pct 7.6 % [facility] Comment: Interpretive Data Percent cell count reference ranges are not reported, since discordance with absolute values may lead to misinterpretation of CBC data. Current Interpretive Data was last revised on 2017. Eosinophil pct 0.6 % [facility] Comment: Interpretive Data Percent cell count reference ranges are not reported, since discordance with absolute values may lead to misinterpretation of CBC data. Current Interpretive Data was last revised on 2017. Basophil pct 1.0 % [facility] Comment: Interpretive Data Percent cell count reference ranges are not reported, since discordance with absolute values may lead to misinterpretation of CBC data. Current Interpretive Data was last revised on 2017. Blood 09/29/2024 3:33 PM [employer]ER 09/29/2024 3:45 PM [employer]ER us Arnulfo Jordan MD LAB BLOOD ORDERABLES Final Result [facility] [address] Department [place] [address] * (ABNORMAL) CBC with auto differential (09/29/2024 3:33 PM [employer]BLER) WBC 8.3 3.8 - 9.9 K/cumm Hgb 7.8(L) 11.9 - 15.5 g/dL [facility] Hct 24.8(L) 35.6 - 45.5 % [facility] Plt 291 150 - 400 K/cumm [facility] MPV 10.9 9.1 - 12.3 fL [facility] RBC 2.59(L) 3.90 - 5.20 M/cumm [facility] MCV 95.8 81.3 - 96.4 fL [facility] MCH 30.1 27.1 - 33.3 pg [facility] MCHC 31.5(L) 32.3 - 35.7 g/dL [facility] RDW CV 16.6(H) 11.1 - 14.9 % [facility] RDW SD 56.7(H) 35.7 - 48.1 fL [facility] NRBC abs 0.02(H) 0.00 - 0.01 K/cumm [facility] Blood 09/29/2024 3:33 PM [employer]ER 09/29/2024 3:45 PM [employer]ER Arnulfo Jordan MD LAB BLOOD ORDERABLES Final Result [facility] [address] Department [place] [address] * (ABNORMAL) Comprehensive metabolic panel (09/29/2024 3:33 PM [employer]SEMBLER) Sodium 141 135 - 145 mmol/L Potassium, pl 2.9(L) 3.3 - 4.9 mmol/L [facility] Chloride 110 97 - 110 mmol/L [facility] CO2 20(L) 22 - 32 mmol/L [facility] Anion gap 11 2 - 15 mmol/L [facility] BUN 19 6 - 25 mg/dL [facility] Creatinine 1.15(H) 0.60 - 1.10 mg/dL [facility] Glucose 207(H) 70 - 199 mg/dL [facility] Comment: Interpretive Data Fasting glucose >/= 126 [...] 2022. Calcium 7.7(L) 8.5 - 10.3 mg/dL [facility] Bilirubin, total 0.2 0.1 - 1.2 mg/dL [facility] Protein, pl 6.4(L) 6.5 - 8.5 g/dL [facility] Albumin 1.9(L) 3.5 - 5.0 g/dL [facility] Alk phos 170(H) 40 - 130 Units/L [facility] ALT 12 7 - 45 Units/L [facility] AST 27 10 - 45 Units/L [facility] Comment:Slightly Hemolyzed S pecimen Blood 09/29/2024 3:33 PM [employer]BLER 09/29/2024 3:45 PM [employer]BLER Result [facility] Arnulfo Jordan MD LAB BLOOD ORDERABLES Final Result Performing Organization Address [facility]/ZIP Co de Phone Number [facility] [address] [facility] [place] [address] * POCT glucose (09/29/2024 1:43 PM C[employer]SEMBLER) Glucose, POC 164 70 - 199 mg/dL Comment: For Glucose values <35 mg/dl when Hematocrit is >60 mg/dl,the test may not accurately detect significant hypoglycemia,and testing in the Laboratory should be considered if clinically indicated. Blood 09/29/2024 1:43 PM [employer]SEMBLER 09/29/2024 1:43 PM [employer] WA[employer] ASSEMBLER Result [facility] Arnulfo Jordan MD LAB POCT ORDERABLES - DEVIC E Final Result Performing Organization Address [facility]/ZIP Co de Phone Number [facility] [address] [facility] [place] [address] * POCT glucose (09/29/2024 9:49 AM C[employer] WA[employer] ASSEMBLER) Glucose, POC 133 70 - 199 mg/dL Comment: For Glucose values <35 mg/dl when Hematocrit is >60 mg/dl,the test may not accurately detect significant hypoglycemia,and testing in the Laboratory should be considered if clinically indicated. Blood 09/29/2024 9:49 AM [employer]SEMBLER 09/29/2024 9:49 AM [employer] WA[employer]LE ASSEMBLER Result [facility] Arnulfo Jordan MD LAB POCT ORDERABLES - DEVIC E Final Result [facility] [address] [facility] [place] [address] * POCT glucose (09/29/2024 7:27 AM C[employer] WA[employer] ASSEMBLER) Glucose, POC 114 70 - 199 mg/dL Comment: For Glucose values <35 mg/dl when Hematocrit is >60 mg/dl,the test may not accurately detect significant hypoglycemia,and testing in the Laboratory should be considered if clinically indicated. Blood 09/29/2024 7:27 AM [employer] WA[employer]LE ASSEMBLER 09/29/2024 7:27 AM [employer]SEMBLER Arnulfo Jordan MD LAB POCT ORDERABLES - DEVIC E Final Result Performing Organization Address [facility] Co de Phone Number [facility] [address] [facility] [place] [address] * POCT glucose (09/29/2024 5:31 AM C[employer] WA[employer] ASSEMBLER) Glucose, POC 115 70 - 199 mg/dL Comment: For Glucose values <35 mg/dl when Hematocrit is >60 mg/dl,the test may not accurately detect significant hypoglycemia,and testing in the Laboratory should be considered if clinically indicated. Blood 09/29/2024 5:31 AM [employer] WA[employer]LE ASSEMBLER 09/29/2024 5:31 AM [employer] WA[employer]LE [employer]SEMBLER Arnulfo Jordan MD LAB POCT ORDERABLES - DEVIC E Final Result Performing Organization Address City[facility]/ZIP Co de Phone Number [facility] [address] [facility] [place] [address] * POCT glucose (09/29/2024 1:25 AM C[employer] WA[employer] ASSEMBLER) Glucose, POC 108 70 - 199 mg/dL Comment: For Glucose values <35 mg/dl when Hematocrit is >60 mg/dl,the test may not accurately detect significant hypoglycemia,and testing in the Laboratory should be considered if clinically indicated. Blood 09/29/2024 1:25 AM [employer] WA[employer]LE [employer]SEMBLER 09/29/2024 1:25 AM [employer]SEMBLER Arnulfo Jordan MD LAB POCT ORDERABLES - DEVIC E Final Result Performing Organization Address [facility] Co de Phone Number [facility] [address] [facility] [place] [address] * POCT glucose (09/28/2024 9:14 PM C[employer] WA[employer]LE ASSEMBLER) Glucose, POC 106 70 - 199 mg/dL Comment: For Glucose values <35 mg/dl when Hematocrit is >60 mg/dl,the test may not accurately detect significant hypoglycemia,and testing in the Laboratory should be considered if clinically indicated. Blood 09/28/2024 9:14 PM [employer] WA[employer]LE ASSEMBLER 09/28/2024 9:14 PM [employer]SEMBLER Arnulfo Jordan MD LAB POCT ORDERABLES - DEVIC E Final Result Performing Organization Address [facility] de Phone Number [facility] [address] [place] [address] * POCT glucose (09/28/2024 5:12 PM C[employer] WA[employer]LE ASSEMBLER) Glucose, POC 161 70 - 199 mg/dL Comment: For Glucose values <35 mg/dl when Hematocrit is >60 mg/dl,the test may not accurately detect significant hypoglycemia,and testing in the Laboratory should be considered if clinically indicated. Blood 09/28/2024 5:12 PM [employer] WA[employer]LE ASSEMBLER 09/28/2024 5:12 PM [employer] WA[employer]LE [employer]SEMBLER Arnulfo Jordan MD LAB POCT ORDERABLES - DEVIC E Final Result Performing Organization Address [facility] Co de Phone Number [facility] [address] [place] [address] * POCT glucose (09/28/2024 1:43 PM CAND[employer] WAFFLE ASSEMBLER) Glucose, POC 173 70 - 199 mg/dL Comment: For Glucose values <35 mg/dl when Hematocrit is >60 mg/dl,the test may not accurately detect significant hypoglycemia,and testing in the Laboratory should be considered if clinically indicated. Blood 09/28/2024 1:43 PM [employer] WA[employer]LE [employer]SEMBLER 09/28/2024 1:43 PM [employer]LE [employer]SEMBLER Arnulfo Jordan MD LAB POCT ORDERABLES - DEVIC E Final Result Performing Organization Address [facility] Co de Phone Number [facility] [address] [place] [address] * POCT glucose (09/28/2024 9:16 AM CANDY WAFFLE ASSEMBLER) Glucose, POC 124 70 - 199 mg/dL Comment: For Glucose values <35 mg/dl when Hematocrit is >60 mg/dl,the test may not accurately detect significant hypoglycemia,and testing in the Laboratory should be considered if clinically indicated. Blood 09/28/2024 9:16 AM [employer] WA[employer]LE ASSEMBLER 09/28/2024 9:16 AM [employer] WA[employer]LE [employer]SEMBLER Arnulfo Jordan MD LAB POCT ORDERABLES - DEVIC E Final Result Performing Organization Address [facility] Co de Phone Number [facility] [address] Department [place] [address] * (ABNORMAL) eGFR (09/28/2024 7:09 AM C[employer]SEMBLER) eGFR 58(L) >=60 mL/min/1. 73 m2 Comment: [...] last reviewed 2021. Blood 09/28/2024 7:09 AM [employer]LE [employer]SEMBLER 09/28/2024 7:45 AM [employer]BLER us Arnulfo Jordan MD LAB BLOOD ORDERABLES Final Result [facility] [address] Department [place] [address] * (ABNORMAL) Differential, auto (09/28/2024 7:09 AM [employer] WA[employer]SEMBLER) Neutrophil abs 5.7 1.5 - 6.5 K/cumm Imm gran abs 0.0 0.0 - 0.1 K/cumm [facility] Lymphocyte abs 0.7(L) 0.8 - 3.3 K/cumm [facility] Monocyte abs 0.5 0.2 - 0.8 K/cumm [facility] Eosinophil abs 0.1 0.0 - 0.5 K/cumm [facility] Basophil abs 0.1 0.0 - 0.1 K/cumm [facility] [place] Neutrophil pct 80.9 % [facility] [place] Comment: Interpretive Data Percent cell count reference ranges are not reported, since discordance with absolute values may lead to misinterpretation of CBC data. Current Interpretive Data was last revised on 2017. Imm gran pct 0.4 % [facility] [place] Comment: Interpretive Data Percent cell count reference ranges are not reported, since discordance with absolute values may lead to misinterpretation of CBC data. Current Interpretive Data was last revised on 2017. Lymphocyte pct 9.3 % [facility] [place] Comment: Interpretive Data Percent cell count reference ranges are not reported, since discordance with absolute values may lead to misinterpretation of CBC data. Current Interpretive Data was last revised on 2017. Monocyte pct 6.9 % [facility] [place] Comment: Interpretive Data Percent cell count reference ranges are not reported, since discordance with absolute values may lead to misinterpretation of CBC data. Current Interpretive Data was last revised on 2017. Eosinophil pct 1.5 % [facility] [place] Comment: Interpretive Data Percent cell count reference ranges are not reported, since discordance with absolute values may lead to misinterpretation of CBC data. Current Interpretive Data was last revised on 2017. Basophil pct 1.0 % [facility] [place] Comment: Interpretive Data Percent cell count reference ranges are not reported, since discordance with absolute values may lead to misinterpretation of CBC data. Current Interpretive Data was last revised on 2017. Blood 09/28/2024 7:09 AM [employer] 09/28/2024 7:45 AM [employer] Arnulfo Jordan MD LAB BLOOD ORDERABLES Final Result [facility] [place] [address] Department [place] [address] * (ABNORMAL) CBC with auto differential (09/28/2024 7:09 AM [employer]) WBC 7.1 3.8 - 9.9 K/cumm Hgb 7.3(L) 11.9 - 15.5 g/dL [facility] [place] Hct 24.5(L) 35.6 - 45.5 % [facility] [place] Plt 285 150 - 400 K/cumm [facility] [place] MPV 11.3 9.1 - 12.3 fL [facility] [place] RBC 2.54(L) 3.90 - 5.20 M/cumm [facility] [place] MCV 96.5(H) 81.3 - 96.4 fL [facility] [place] MCH 28.7 27.1 - 33.3 pg [facility] [place] MCHC 29.8(L) 32.3 - 35.7 g/dL [facility] [place] RDW CV 16.5(H) 11.1 - 14.9 % [facility] [place] RDW SD 57.2(H) 35.7 - 48.1 fL [facility] [place] NRBC abs 0.00 0.00 - 0.01 K/cumm [facility] [place] Blood 09/28/2024 7:09 AM [employer] 09/28/2024 7:45 AM [employer] Arnulfo Jordan MD LAB BLOOD ORDERABLES Final Result [facility] [place] [address] Department [place] [address] * (ABNORMAL) Comprehensive metabolic panel (09/28/2024 7:09 AM [employer]) Sodium 142 135 - 145 mmol/L Potassium, pl 3.3 3.3 - 4.9 mmol/L [facility] [place] Chloride 109 97 - 110 mmol/L [facility] [place] CO2 21(L) 22 - 32 mmol/L [facility] [place] Anion gap 12 2 - 15 mmol/L [facility] [place] BUN 24 6 - 25 mg/dL [facility] [place] Creatinine 1.15(H) 0.60 - 1.10 mg/dL [facility] [place] Glucose 111 70 - 199 mg/dL [facility] [place] Comment: Interpretive Data Fasting glucose >/= 126 [...] 2022. Calcium 8.1(L) 8.5 - 10.3 mg/dL [facility] [place] Bilirubin, total 0.2 0.1 - 1.2 mg/dL [facility] [place] Protein, pl 6.3(L) 6.5 - 8.5 g/dL [facility] [place] Albumin 1.9(L) 3.5 - 5.0 g/dL [facility] [place] Alk phos 163(H) 40 - 130 Units/L [facility] [place] ALT 10 7 - 45 Units/L [facility] [place] AST 28 10 - 45 Units/L [facility] [place] Blood 09/28/2024 7:09 AM [employer] 09/28/2024 7:45 AM [employer] Arnulfo Jordan MD LAB BLOOD ORDERABLES Final Result Performing Organization Address [facility] de Phone Number [facility] [place] [address] [facility] [place] [address] * POCT glucose (09/28/2024 5:42 AM [employer]) Glucose, POC 123 70 - 199 mg/dL Comment: For Glucose values <35 mg/dl when Hematocrit is >60 mg/dl,the test may not accurately detect significant hypoglycemia,and testing in the Laboratory should be considered if clinically indicated. Blood 09/28/2024 5:42 AM [employer] 09/28/2024 5:42 AM [employer] us Arnulfo Jordan MD LAB POCT ORDERABLES - DEVIC E Final Result Performing Organization Address [facility] de Phone Number [facility] [place] [address] [facility] [place] [address] * POCT glucose (09/28/2024 1:31 AM [employer]) Glucose, POC 125 70 - 199 mg/dL Comment: For Glucose values <35 mg/dl when Hematocrit is >60 mg/dl,the test may not accurately detect significant hypoglycemia,and testing in the Laboratory should be considered if clinically indicated. Blood 09/28/2024 1:31 AM [employer] 09/28/2024 1:31 AM [employer] us Arnulfo Jordan MD LAB POCT ORDERABLES - DEVIC E Final Result Performing Organization Address [facility] Co de Phone Number [facility] [place] [address] [place] [address] * POCT glucose (09/27/2024 9:14 PM [employer]) Glucose, POC 136 70 - 199 mg/dL Comment: For Glucose values <35 mg/dl when Hematocrit is >60 mg/dl,the test may not accurately detect significant hypoglycemia,and testing in the Laboratory should be considered if clinically indicated. Blood 09/27/2024 9:14 PM [employer] 09/27/2024 9:14 PM [employer] Arnulfo Jordan MD LAB POCT ORDERABLES - DEVIC E Final Result Performing Organization Address [facility] Co de Phone Number [facility] [address] [place] [address] * POCT glucose (09/27/2024 5:25 PM [employer]) Glucose, POC 112 70 - 199 mg/dL Comment: For Glucose values <35 mg/dl when Hematocrit is >60 mg/dl,the test may not accurately detect significant hypoglycemia,and testing in the Laboratory should be considered if clinically indicated. Blood 09/27/2024 5:25 PM [employer] 09/27/2024 5:25 PM [employer] Arnulfo Jordan MD LAB POCT ORDERABLES - DEVIC E Final Result Performing Organization Address [facility]/ZIP Co de Phone Number [facility] [address] [place] [address] * POCT glucose (09/27/2024 3:13 PM [employer]) Glucose, POC 101 70 - 199 mg/dL Comment: For Glucose values <35 mg/dl when Hematocrit is >60 mg/dl,the test may not accurately detect significant hypoglycemia,and testing in the Laboratory should be considered if clinically indicated. Blood 09/27/2024 3:13 PM [employer] 09/27/2024 3:13 PM [employer] us Arnulfo Jordan MD LAB POCT ORDERABLES - DEVIC E Final Result [facility] [address] Department [place] [address] * FL Modified Barium Swallow W Video (09/27/2024 2:20 PM [employer]) Anatomical Region Laterality Modality Head and Neck N/A Radio Fluoroscop y 09/27/2024 2:33 PM [employer] Impressions 09/27/2024 3:03 PM [employer] 1. There is flash laryngeal penetration with [...] Zion Rodriguez M.D. Narrative 09/27/2024 3:03 PM [employer] EXAMINATION: MODIFIED BARIUM SWALLOW 09/27/2024 HISTORY: Dysphagia. [...] Result * POCT glucose (09/27/2024 10:05 AM [employer]BLER) Pathologist [facility] Glucose, POC 89 70 - 199 mg/dL Comment: For Glucose values <35 mg/dl when Hematocrit is >60 mg/dl,the test may not accurately detect significant hypoglycemia,and testing in the Laboratory should be considered if clinically indicated. Blood 09/27/2024 10:0 5 AM [employer]BL[employer] 09/27/2024 10:05 AM [employer]SEMBLER us Arnulfo Jordan MD LAB POCT ORDERABLES - DEVIC E Final Result [facility] [address] Department [place] [address] * Iron profile - Add on lab test (09/27/2024 8:43 AM [employer]SEMBLER) Pathologist [facility] Acceptable Yes Blood 09/27/2024 8:43 AM [employer] 09/27/2024 8:43 AM [employer]SEMBLER Narrative [facility] - 09/27/2024 8:44 AM [employer]SEMBL[employer] Name of Test->Iron profile Arnulfo Jordan MD LAB BLOOD ORDERABLES Final Result Performing Organization Address [facility] Co de Phone Number [facility] [place] [address] Department [place] [address] * POCT glucose (09/27/2024 5:57 AM [employer]SEMBLER) [facility] Glucose, POC 74 70 - 199 mg/dL Comment: For Glucose values <35 mg/dl when Hematocrit is >60 mg/dl,the test may not accurately detect significant hypoglycemia,and testing in the Laboratory should be considered if clinically indicated. Blood 09/27/2024 5:57 AM [employer]BLER 09/27/2024 5:57 AM [employer]ER Arnulfo Jordan MD LAB POCT ORDERABLES - DEVIC E Final Result Performing Organization Address [facility] Co de Phone Number [facility] [place] [address] Department [place] [address] * (ABNORMAL) eGFR (09/27/2024 5:42 AM [employer]SEMBLER) [facility] eGFR 58(L) >=60 mL/min/1. 73 m2 Comment: [...] last reviewed 2021. Blood 09/27/2024 5:42 AM [employer]ER 09/27/2024 5:55 AM [employer] Arnulfo Jordan MD LAB BLOOD ORDERABLES Final Result [facility] [place] [address] Department [place] [address] * (ABNORMAL) Differential, auto (09/27/2024 5:42 AM [employer]BLER) Neutrophil abs 7.1(H) 1.5 - 6.5 K/cumm Imm gran abs 0.0 0.0 - 0.1 K/cumm [facility] [place] Lymphocyte abs 0.7(L) 0.8 - 3.3 K/cumm [facility] [place] Monocyte abs 0.6 0.2 - 0.8 K/cumm [facility] [place] Eosinophil abs 0.2 0.0 - 0.5 K/cumm [facility] [place] Basophil abs 0.1 0.0 - 0.1 K/cumm [facility] [place] Neutrophil pct 80.9 % [facility] [place] Comment: Interpretive Data Percent cell count reference ranges are not reported, since discordance with absolute values may lead to misinterpretation of CBC data. Current Interpretive Data was last revised on 2017. Imm gran pct 0.5 % [facility] [place] Comment: Interpretive Data Percent cell count reference ranges are not reported, since discordance with absolute values may lead to misinterpretation of CBC data. Current Interpretive Data was last revised on 2017. Lymphocyte pct 8.4 % [facility] [place] Comment: Interpretive Data Percent cell count reference ranges are not reported, since discordance with absolute values may lead to misinterpretation of CBC data. Current Interpretive Data was last revised on 2017. Monocyte pct 6.6 % [facility] [place] Comment: Interpretive Data Percent cell count reference ranges are not reported, since discordance with absolute values may lead to misinterpretation of CBC data. Current Interpretive Data was last revised on 2017. Eosinophil pct 2.6 % [facility] [place] Comment: Interpretive Data Percent cell count reference ranges are not reported, since discordance with absolute values may lead to misinterpretation of CBC data. Current Interpretive Data was last revised on 2017. Basophil pct 1.0 % [facility] [place] Comment: Interpretive Data Percent cell count reference ranges are not reported, since discordance with absolute values may lead to misinterpretation of CBC data. Current Interpretive Data was last revised on 2017. Blood 09/27/2024 5:42 AM [employer] 09/27/2024 5:55 AM [employer] Arnulfo Jordan MD LAB BLOOD ORDERABLES Final Result Performing Organization Address [facility]/ZIP Co de Phone Number [facility] [place] [address] [facility] [employer] [place], [place] [id number] * (ABNORMAL) Iron profile w/ IBC (09/27/2024 5:42 AM [employer]SEMBLER) Pathologist [facility] Iron 25(L) 35 - 145 mcg/dL TIBC 156(L) 250 - 400 mcg/dL [facility] [place] Transferrin saturation 16(L) 20 - 50 % [facility] [place] Blood 09/27/2024 5:42 AM [employer]BLER 09/27/2024 5:55 AM [employer]ER Arnulfo Jordan MD LAB BLOOD ORDERABLES Final Result Performing Organization Address [facility]/ZIP Co de Phone Number [facility] [place] [address] [place] [address] * (ABNORMAL) CBC with auto differential (09/27/2024 5:42 AM [employer]SEMBLER) WBC 8.8 3.8 - 9.9 K/cumm Hgb 7.2(L) 11.9 - 15.5 g/dL [facility] [place] Hct 24.6(L) 35.6 - 45.5 % [facility] [place] Plt 280 150 - 400 K/cumm [facility] [place] MPV 11.4 9.1 - 12.3 fL [facility] [place] RBC 2.60(L) 3.90 - 5.20 M/cumm [facility] [place] MCV 94.6 81.3 - 96.4 fL [facility] [place] MCH 27.7 27.1 - 33.3 pg [facility] [place] MCHC 29.3(L) 32.3 - 35.7 g/dL [facility] [place] RDW CV 16.1(H) 11.1 - 14.9 % [facility] [place] RDW SD 54.5(H) 35.7 - 48.1 fL [facility] [place] NRBC abs 0.00 0.00 - 0.01 K/cumm [facility] [place] Blood 09/27/2024 5:42 AM [employer]ER 09/27/2024 5:55 AM [employer]ER Arnulfo Jordan MD LAB BLOOD ORDERABLES Final Result [facility] [place] [address] Department [place] [address] * (ABNORMAL) Comprehensive metabolic panel (09/27/2024 5:42 AM [employer]SEMBLER) Sodium 143 135 - 145 mmol/L Potassium, pl 3.4 3.3 - 4.9 mmol/L [facility] [place] Chloride 110 97 - 110 mmol/L [facility] [place] CO2 22 22 - 32 mmol/L [facility] [place] Anion gap 11 2 - 15 mmol/L [facility] [place] BUN 25 6 - 25 mg/dL [facility] [place] Creatinine 1.16(H) 0.60 - 1.10 mg/dL [facility] [place] Glucose 77 70 - 199 mg/dL [facility] [place] Comment: Interpretive Data Fasting glucose >/= 126 [...] 2022. Calcium 8.0(L) 8.5 - 10.3 mg/dL [facility] [place] Bilirubin, total 0.3 0.1 - 1.2 mg/dL [facility] [place] Protein, pl 6.0(L) 6.5 - 8.5 g/dL [facility] [place] Albumin 2.1(L) 3.5 - 5.0 g/dL [facility] [place] Alk phos 152(H) 40 - 130 Units/L [facility] [place] ALT 12 7 - 45 Units/L [facility] [place] AST 31 10 - 45 Units/L [facility] [place] Blood 09/27/2024 5:42 AM [employer]BLER 09/27/2024 5:55 AM [employer] ASSEMBLER Result [facility] Arnulfo Jordan MD LAB BLOOD ORDERABLES Final Result Performing Organization Address [facility] Co de Phone Number [facility] [place] [address] [facility] [place] [address] * POCT glucose (09/27/2024 2:14 AM [employer]SEMBLER) Glucose, POC 78 70 - 199 mg/dL Comment: For Glucose values <35 mg/dl when Hematocrit is >60 mg/dl,the test may not accurately detect significant hypoglycemia,and testing in the Laboratory should be considered if clinically indicated. Blood 09/27/2024 2:14 AM [employer]SEMBLER 09/27/2024 2:14 AM [employer]BLER Arnulfo Jordan MD LAB POCT ORDERABLES - DEVIC E Final Result Performing Organization Address [facility]/ZIP Co de Phone Number [facility] [place] [address] [facility] [place] [address] * POCT glucose (09/26/2024 9:41 PM [employer]SEMBLER) Glucose, POC 79 70 - 199 mg/dL Comment: For Glucose values <35 mg/dl when Hematocrit is >60 mg/dl,the test may not accurately detect significant hypoglycemia,and testing in the Laboratory should be considered if clinically indicated. Blood 09/26/2024 9:41 PM [employer]SEMBLER 09/26/2024 9:41 PM [employer]ER Arnulfo Jordan MD LAB POCT ORDERABLES - DEVIC E Final Result Performing Organization Address [facility] de Phone Number [facility] [place] [address] Department [place] [address] * POCT glucose (09/26/2024 6:18 PM C[employer] ASSEMBLER) Pathologist [facility] Glucose, POC 91 70 - 199 mg/dL Comment: For Glucose values <35 mg/dl when Hematocrit is >60 mg/dl,the test may not accurately detect significant hypoglycemia,and testing in the Laboratory should be considered if clinically indicated. Blood 09/26/2024 6:18 PM [employer]BLER 09/26/2024 6:18 PM [employer]SEM[employer]ER Arnulfo Jordan MD LAB POCT ORDERABLES - DEVIC E Final Result Performing Organization Address [facility] de Phone Number [facility] [place] [address] [place] [address] * POCT glucose (09/26/2024 2:51 PM C[employer] WA[employer]LE ASSEMBLER) [facility] Glucose, POC 89 70 - 199 mg/dL Comment: For Glucose values <35 mg/dl when Hematocrit is >60 mg/dl,the test may not accurately detect significant hypoglycemia,and testing in the Laboratory should be considered if clinically indicated. Blood 09/26/2024 2:51 PM [employer]LE ASSEMBLER 09/26/2024 2:51 PM [employer]SEMBLER Arnulfo Jordan MD LAB POCT ORDERABLES - DEVIC E Final Result Performing Organization Address [facility] de Phone Number [facility] [place] [address] Department Laboratories [place], [place] [id number] * (ABNORMAL) CBC with auto differential (09/26/2024 2:03 PM [employer] WA[employer] ASSEMBLER) [facility] WBC 8.6 3.8 - 9.9 K/cumm Hgb 7.3(L) 11.9 - 15.5 g/dL [facility] [place] Hct 24.2(L) 35.6 - 45.5 % [facility] [place] Plt 308 150 - 400 K/cumm [facility] [place] MPV 11.5 9.1 - 12.3 fL [facility] [place] RBC 2.52(L) 3.90 - 5.20 M/cumm [facility] [place] MCV 96.0 81.3 - 96.4 fL [facility] [place] MCH 29.0 27.1 - 33.3 pg [facility] [place] MCHC 30.2(L) 32.3 - 35.7 g/dL [facility] [place] RDW CV 16.0(H) 11.1 - 14.9 % [facility] [place] RDW SD 55.1(H) 35.7 - 48.1 fL [facility] [place] NRBC abs 0.00 0.00 - 0.01 K/cumm [facility] [place] Blood 09/26/2024 2:03 PM [employer] 09/26/2024 2:11 PM [employer] Arnulfo Jordan MD LAB BLOOD ORDERABLES Final Result [facility] [place] [address] Department [place] [address] * (ABNORMAL) eGFR (09/26/2024 1:25 PM [employer]SEMBLER) [facility] eGFR 57(L) >=60 mL/min/1. 73 m2 Comment: [...] last reviewed 2021. Blood 09/26/2024 1:25 PM [employer]SEMBLER 09/26/2024 1:33 PM [employer]SEMBLER us Arnulfo Jordan MD LAB BLOOD ORDERABLES Final Result [facility] [place] [address] Department [place] [address] * Differential, auto (09/26/2024 1:25 PM [employer] ASSEMBLER) Neutrophil abs See Comment 1.5 - 6.5 Comment:CBC to be recollecte d due to possible falsely low Hgb on09/26/2024 13:53:40 [employer] [id number] Imm gran abs See Comment 0.0 - 0.1 [facility] [place] Comment:CBC to be recollecte d due to possible falsely low Hgb on09/26/2024 13:53:40 [employer]ER [id number] Lymphocyte abs See Comment 0.8 - 3.3 [facility] [place] Comment:CBC to be recollecte d due to possible falsely low Hgb on09/26/2024 13:53:40 [employer]SEM[employer]ER [id number] Monocyte abs See Comment 0.2 - 0.8 [facility] [place] Comment:CBC to be recollecte d due to possible falsely low Hgb on09/26/2024 13:53:40 [employer] [id number] Eosinophil abs See Comment 0.0 - 0.5 [facility] [place] Comment:CBC to be recollecte d due to possible falsely low Hgb on09/26/2024 13:53:40 C[employer] WA[employer]ER [id number] Basophil abs See Comment 0.0 - 0.1 [facility] [place] Comment:CBC to be recollecte d due to possible falsely low Hgb on09/26/2024 13:53:40 C[employer]SEM[employer]ER [id number] Neutrophil pct See Comment [facility] [place] Comment: CBC to be recollected due to possible falsely low Hgb on09/26/2024 13:53:40 C[employer] [id number] Interpretive Data Percent cell count reference ranges are not reported, since discordance with absolute values may lead to misinterpretation of CBC data. Current Interpretive Data was last revised on 2017. Imm gran pct See Comment [facility] [place] Comment: CBC to be recollected due to possible falsely low Hgb on09/26/2024 13:53:40 C[employer] [id number] Interpretive Data Percent cell count reference ranges are not reported, since discordance with absolute values may lead to misinterpretation of CBC data. Current Interpretive Data was last revised on 2017. Lymphocyte pct See Comment [facility] [place] Comment: CBC to be recollected due to possible falsely low Hgb on09/26/2024 13:53:40 [employer] [id number] Interpretive Data Percent cell count reference ranges are not reported, since discordance with absolute values may lead to misinterpretation of CBC data. Current Interpretive Data was last revised on 2017. Monocyte pct See Comment [facility] [place] Comment: CBC to be recollected due to possible falsely low Hgb on09/26/2024 13:53:40 C[employer]SEM[employer]ER [id number] Interpretive Data Percent cell count reference ranges are not reported, since discordance with absolute values may lead to misinterpretation of CBC data. Current Interpretive Data was last revised on 2017. Eosinophil pct See Comment [facility] [place] Comment: CBC to be recollected due to possible falsely low Hgb on09/26/2024 13:53:40 C[employer] [id number] Interpretive Data Percent cell count reference ranges are not reported, since discordance with absolute values may lead to misinterpretation of CBC data. Current Interpretive Data was last revised on 2017. Basophil pct See Comment [facility] [place] Comment: CBC to be recollected due to possible falsely low Hgb on09/26/2024 13:53:40 [employer] [id number] Interpretive Data Percent cell count reference ranges are not reported, since discordance with absolute values may lead to misinterpretation of CBC data. Current Interpretive Data was last revised on 2017. Blood 09/26/2024 1:25 PM [employer]ER 09/26/2024 1:33 PM [employer] us Arnulfo Jordan MD LAB BLOOD ORDERABLES Edited Result - Final [facility] [place] [address] [place] [address] * CBC with auto differential (09/26/2024 1:25 PM C[employer]SEMBLER) WBC See Comment 3.8 - 9.9 Comment: Test results inaccurately filed to this patient's record. Test will be credited. CBC to be recollected due to possible falsely low Hgb on09/26/2024 13:53:40 [employer] [id number] Hgb See Comment 11.9 - 15.5 [facility] [place] Comment: Test results inaccurately filed to this patient's record. Test will be credited. CBC to be recollected due to possible falsely low Hgb on09/26/2024 13:53:40 [employer] [id number] Hct See Comment 35.6 - 45.5 [facility] Comment: Test results inaccurately filed to this patient's record. Test will be credited. CBC to be recollected due to possible falsely low Hgb on09/26/2024 13:53:40 [employer] [id number] Plt See Comment 150 - 400 K/cumm [facility] Comment: Test results inaccurately filed to this patient's record. Test will be credited. CBC to be recollected due to possible falsely low Hgb on09/26/2024 13:53:40 [employer] [id number] MPV See Comment 9.1 - 12.3 [facility] Comment: Test results inaccurately filed to this patient's record. Test will be credited. CBC to be recollected due to possible falsely low Hgb on09/26/2024 13:53:40 [employer] [id number] RBC See Comment 3.90 - 5.20 [facility] Comment: Test results inaccurately filed to this patient's record. Test will be credited. CBC to be recollected due to possible falsely low Hgb on09/26/2024 13:53:40 [employer] [id number] MCV See Comment 81.3 - 96.4 [facility] Comment: Test results inaccurately filed to this patient's record. Test will be credited. CBC to be recollected due to possible falsely low Hgb on09/26/2024 13:53:40 [employer] [id number] MCH See Comment 27.1 - 33.3 [facility] Comment: Test results inaccurately filed to this patient's record. Test will be credited. CBC to be recollected due to possible falsely low Hgb on09/26/2024 13:53:40 [employer] [id number] MCHC See Comment 32.3 - 35.7 [facility] Comment: Test results inaccurately filed to this patient's record. Test will be credited. CBC to be recollected due to possible falsely low Hgb on09/26/2024 13:53:40 [employer] [id number] RDW CV See Comment 11.1 - 14.9 [facility] Comment: Test results inaccurately filed to this patient's record. Test will be credited. CBC to be recollected due to possible falsely low Hgb on09/26/2024 13:53:40 [employer] [id number] RDW SD See Comment 35.7 - 48.1 [facility] Comment: Test results inaccurately filed to this patient's record. Test will be credited. CBC to be recollected due to possible falsely low Hgb on09/26/2024 13:53:40 [employer] [id number] NRBC abs See Comment 0.00 - 0.01 K/cumm [facility] Comment:CBC to be recollecte d due to possible falsely low Hgb on09/26/2024 13:53:40 [employer] [id number] Blood 09/26/2024 1:25 PM [employer] 09/26/2024 1:33 PM [employer] us Arnulfo Jordan MD LAB BLOOD ORDERABLES Edited Result - Final [facility] [address] Department [place] [address] * (ABNORMAL) Comprehensive metabolic panel (09/26/2024 1:25 PM [employer]) Sodium 142 135 - 145 mmol/L Potassium, pl 3.2(L) 3.3 - 4.9 mmol/L [facility] Chloride 112(H) 97 - 110 mmol/L [facility] CO2 21(L) 22 - 32 mmol/L [facility] Anion gap 9 2 - 15 mmol/L [facility] BUN 23 6 - 25 mg/dL [facility] Creatinine 1.18(H) 0.60 - 1.10 mg/dL [facility] Glucose 79 70 - 199 mg/dL [facility] Comment: Interpretive Data Fasting glucose >/= 126 [...] 2022. Calcium 7.4(L) 8.5 - 10.3 mg/dL [facility] Bilirubin, total 0.2 0.1 - 1.2 mg/dL [facility] Protein, pl 5.6(L) 6.5 - 8.5 g/dL [facility] Albumin 1.8(L) 3.5 - 5.0 g/dL [facility] Alk phos 135(H) 40 - 130 Units/L [facility] ALT 13 7 - 45 Units/L [facility] AST 32 10 - 45 Units/L [facility] Blood 09/26/2024 1:25 PM [employer] 09/26/2024 1:33 PM [employer] us Arnulfo Jordan MD LAB BLOOD ORDERABLES Final Result [facility] [address] Department [place] [address] * POCT glucose (09/26/2024 10:10 AM [employer]) Glucose, POC 100 70 - 199 mg/dL Comment: For Glucose values <35 mg/dl when Hematocrit is >60 mg/dl,the test may not accurately detect significant hypoglycemia,and testing in the Laboratory should be considered if clinically indicated. Blood 09/26/2024 10:1 0 AM [employer] 09/26/2024 10:10 AM [employer] Arnulfo Jordan MD LAB POCT ORDERABLES - DEVIC E Final Result [facility] [address] [facility] [place] [address] * POCT glucose (09/26/2024 5:04 AM [employer]) Pathologist [facility] Glucose, POC 94 70 - 199 mg/dL Comment: For Glucose values <35 mg/dl when Hematocrit is >60 mg/dl,the test may not accurately detect significant hypoglycemia,and testing in the Laboratory should be considered if clinically indicated. Blood 09/26/2024 5:04 AM [employer] 09/26/2024 5:04 AM [employer] Arnulfo Jordan MD LAB POCT ORDERABLES - DEVIC E Final Result [facility] [address] [place] [address] * C. difficile testing Stool (09/26/2024 2:18 AM [employer]) [facility] GDH Result Negative Negative Toxin Result Negative Negative [facility] C. diff result Negative, free toxin Negative, free toxin [facility] C. diff interp Negative for toxigenic Clostridioides (Clostridium) difficile. Analysis was performed using a glutamate dehydrogenase antigen detection assay combined with a C. difficile toxin detection assay. [facility] Stool 09/26/2024 2:18 AM [employer] 09/26/2024 2:41 AM [employer] Arnulfo Jordan MD LAB MICROBIOLOGY - GENERAL ORDERABLES Final Result Performing Organization Address [facility] de Phone Number [facility] [address] [facility] [place] [address] * POCT glucose (09/26/2024 12:01 AM [employer]) Glucose, POC 108 70 - 199 mg/dL Comment: For Glucose values <35 mg/dl when Hematocrit is >60 mg/dl,the test may not accurately detect significant hypoglycemia,and testing in the Laboratory should be considered if clinically indicated. Blood 09/26/2024 12:0 1 AM [employer] 09/26/2024 12:01 AM [employer] Arnulfo Jordan MD LAB POCT ORDERABLES - DEVIC E Final Result Performing Organization Address [facility] de Phone Number [facility] [address] [facility] [place] [address] * POCT glucose (09/25/2024 8:35 PM [employer]) Glucose, POC 92 70 - 199 mg/dL Comment: For Glucose values <35 mg/dl when Hematocrit is >60 mg/dl,the test may not accurately detect significant hypoglycemia,and testing in the Laboratory should be considered if clinically indicated. Blood 09/25/2024 8:35 PM [employer] 09/25/2024 8:35 PM [employer] Arnulfo Jordan MD LAB POCT ORDERABLES - DEVIC E Final Result Performing Organization Address [facility] Co de Phone Number [facility] [address] [facility] [place] [address] * POCT glucose (09/25/2024 4:36 PM [employer]) Glucose, POC 97 70 - 199 mg/dL Comment: For Glucose values <35 mg/dl when Hematocrit is >60 mg/dl,the test may not accurately detect significant hypoglycemia,and testing in the Laboratory should be considered if clinically indicated. Blood 09/25/2024 4:36 PM [employer] 09/25/2024 4:36 PM [employer] Arnulfo Jordan MD LAB POCT ORDERABLES - DEVIC E Final Result Performing Organization Address [facility] de Phone Number [facility] [address] Department [place] [address] * POCT glucose (09/25/2024 11:55 AM [employer]) [facility] Glucose, POC 87 70 - 199 mg/dL Comment: For Glucose values <35 mg/dl when Hematocrit is >60 mg/dl,the test may not accurately detect significant hypoglycemia,and testing in the Laboratory should be considered if clinically indicated. Blood 09/25/2024 11:5 5 AM [employer] 09/25/2024 11:55 AM [employer] Arnulfo Jordan MD LAB POCT ORDERABLES - DEVIC E Final Result Performing Organization Address [facility] de Phone Number [facility] [address] Department [place] [address] * (ABNORMAL) eGFR (09/25/2024 8:32 AM [employer]) [facility] eGFR 53(L) >=60 mL/min/1. 73 m2 Comment: [...] last reviewed 2021. Blood 09/25/2024 8:32 AM [employer] 09/25/2024 8:46 AM [employer] us Arnulfo Jordan MD LAB BLOOD ORDERABLES Final Result [facility] [address] Department [place] [address] * (ABNORMAL) Differential, auto (09/25/2024 8:32 AM [employer]) Neutrophil abs 7.2(H) 1.5 - 6.5 K/cumm Imm gran abs 0.1 0.0 - 0.1 K/cumm [facility] Lymphocyte abs 1.1 0.8 - 3.3 K/cumm [facility] Monocyte abs 0.7 0.2 - 0.8 K/cumm [facility] Eosinophil abs 0.2 0.0 - 0.5 K/cumm [facility] Basophil abs 0.1 0.0 - 0.1 K/cumm [facility] Neutrophil pct 78.5 % [facility] Comment: Interpretive Data Percent cell count reference ranges are not reported, since discordance with absolute values may lead to misinterpretation of CBC data. Current Interpretive Data was last revised on 2017. Imm gran pct 0.5 % [facility] Comment: Interpretive Data Percent cell count reference ranges are not reported, since discordance with absolute values may lead to misinterpretation of CBC data. Current Interpretive Data was last revised on 2017. Lymphocyte pct 11.6 % [facility] Comment: Interpretive Data Percent cell count reference ranges are not reported, since discordance with absolute values may lead to misinterpretation of CBC data. Current Interpretive Data was last revised on 2017. Monocyte pct 7.3 % [facility] Comment: Interpretive Data Percent cell count reference ranges are not reported, since discordance with absolute values may lead to misinterpretation of CBC data. Current Interpretive Data was last revised on 2017. Eosinophil pct 1.6 % [facility] Comment: Interpretive Data Percent cell count reference ranges are not reported, since discordance with absolute values may lead to misinterpretation of CBC data. Current Interpretive Data was last revised on 2017. Basophil pct 0.5 % [facility] Comment: Interpretive Data Percent cell count reference ranges are not reported, since discordance with absolute values may lead to misinterpretation of CBC data. Current Interpretive Data was last revised on 2017. Blood 09/25/2024 8:32 AM [employer] 09/25/2024 8:46 AM [employer] Arnulfo Jordan MD LAB BLOOD ORDERABLES Final Result Performing Organization Address [facility] Co de Phone Number [facility] [address] [employer] [place], [place] [id number] * POCT glucose (09/25/2024 8:32 AM [employer]) [facility] Glucose, POC 89 70 - 199 mg/dL Comment: For Glucose values <35 mg/dl when Hematocrit is >60 mg/dl,the test may not accurately detect significant hypoglycemia,and testing in the Laboratory should be considered if clinically indicated. Blood 09/25/2024 8:32 AM [employer] 09/25/2024 8:32 AM [employer] Arnulfo Jordan MD LAB POCT ORDERABLES - DEVIC E Final Result Performing Organization Address City/[facility]/ZIP Co de Phone Number [facility] [address] Department [employer] [place], [place] [id number] * (ABNORMAL) CBC with auto differential (09/25/2024 8:32 AM [employer]) [facility] WBC 9.2 3.8 - 9.9 K/cumm Hgb 7.2(L) 11.9 - 15.5 g/dL [facility] Hct 24.6(L) 35.6 - 45.5 % [facility] Plt 259 150 - 400 K/cumm [facility] MPV 11.7 9.1 - 12.3 fL [facility] RBC 2.49(L) 3.90 - 5.20 M/cumm [facility] MCV 98.8(H) 81.3 - 96.4 fL [facility] MCH 28.9 27.1 - 33.3 pg [facility] MCHC 29.3(L) 32.3 - 35.7 g/dL [facility] RDW CV 15.8(H) 11.1 - 14.9 % [facility] RDW SD 55.9(H) 35.7 - 48.1 fL [facility] NRBC abs 0.00 0.00 - 0.01 K/cumm [facility] Blood 09/25/2024 8:32 AM [employer] 09/25/2024 8:46 AM [employer] Arnulfo Jordan MD LAB BLOOD ORDERABLES Final Result [facility] [address] Department [place] [address] * (ABNORMAL) Comprehensive metabolic panel (09/25/2024 8:32 AM [employer]) Sodium 143 135 - 145 mmol/L Potassium, pl 3.2(L) 3.3 - 4.9 mmol/L [facility] Chloride 111(H) 97 - 110 mmol/L [facility] CO2 20(L) 22 - 32 mmol/L [facility] Anion gap 12 2 - 15 mmol/L [facility] BUN 26(H) 6 - 25 mg/dL [facility] Creatinine 1.24(H) 0.60 - 1.10 mg/dL [facility] Glucose 85 70 - 199 mg/dL [facility] Comment: Interpretive Data Fasting glucose >/= 126 [...] 2022. Calcium 7.7(L) 8.5 - 10.3 mg/dL [facility] Bilirubin, total 0.2 0.1 - 1.2 mg/dL [facility] Protein, pl 5.8(L) 6.5 - 8.5 g/dL [facility] Albumin 1.9(L) 3.5 - 5.0 g/dL [facility] Alk phos 137(H) 40 - 130 Units/L [facility] ALT 13 7 - 45 Units/L [facility] AST 28 10 - 45 Units/L [facility] Blood 09/25/2024 8:32 AM [employer] 09/25/2024 8:46 AM [employer] Arnulfo Jordan MD LAB BLOOD ORDERABLES Final Result Performing Organization Address [facility]/ZIP Co de Phone Number [facility] [address] [place] [place] [address] * POCT glucose (09/25/2024 4:49 AM [employer]BL[employer]) [facility] Glucose, POC 86 70 - 199 mg/dL Comment: For Glucose values <35 mg/dl when Hematocrit is >60 mg/dl,the test may not accurately detect significant hypoglycemia,and testing in the Laboratory should be considered if clinically indicated. Blood 09/25/2024 4:49 AM [employer] 09/25/2024 4:49 AM [employer] us Arnulfo Jordan MD LAB POCT ORDERABLES - DEVIC E Final Result Performing Organization Address [facility]/ZIP Co de Phone Number [facility] [address] Department [employer] [place], [place] [id number] * POCT glucose (09/25/2024 12:48 AM C[employer]SEMBLER) Glucose, POC 83 70 - 199 mg/dL Comment: For Glucose values <35 mg/dl when Hematocrit is >60 mg/dl,the test may not accurately detect significant hypoglycemia,and testing in the Laboratory should be considered if clinically indicated. Blood 09/25/2024 12:4 8 AM [employer] 09/25/2024 12:48 AM [employer] Result [facility] Arnulfo Jordan MD LAB POCT ORDERABLES - DEVIC E Final Result Performing Organization Address [facility] Co de Phone Number [facility] [address] [facility] [place] [address] * POCT glucose (09/24/2024 8:56 PM [employer]) Glucose, POC 83 70 - 199 mg/dL Comment: For Glucose values <35 mg/dl when Hematocrit is >60 mg/dl,the test may not accurately detect significant hypoglycemia,and testing in the Laboratory should be considered if clinically indicated. Blood 09/24/2024 8:56 PM [employer] 09/24/2024 8:56 PM [employer] Result [facility] Arnulfo Jordan MD LAB POCT ORDERABLES - DEVIC E Final Result Performing Organization Address [facility] Co de Phone Number [facility] [address] [place] [address] * POCT glucose (09/24/2024 4:20 PM [employer]) Glucose, POC 83 70 - 199 mg/dL Comment: For Glucose values <35 mg/dl when Hematocrit is >60 mg/dl,the test may not accurately detect significant hypoglycemia,and testing in the Laboratory should be considered if clinically indicated. Blood 09/24/2024 4:20 PM [employer] 09/24/2024 4:20 PM [employer] us Arnulfo Jordan MD LAB POCT ORDERABLES - DEVIC E Final Result Performing Organization Address [facility] Co de Phone Number [facility] [address] [facility] [place] [address] * POCT glucose (09/24/2024 12:13 PM [employer]BL[employer]) Glucose, POC 91 70 - 199 mg/dL Comment: For Glucose values <35 mg/dl when Hematocrit is >60 mg/dl,the test may not accurately detect significant hypoglycemia,and testing in the Laboratory should be considered if clinically indicated. Blood 09/24/2024 12:1 3 PM [employer] 09/24/2024 12:13 PM [employer] Arnulfo Jordan MD LAB POCT ORDERABLES - DEVIC E Final Result Performing Organization Address [facility] Co de Phone Number [facility] [address] Department [place] [address] * XR Chest 1 View (09/24/2024 8:18 AM [employer]BLER) Anatomical Region Laterality Modality Body, Chest N/A Computed Radiogr aphy 09/24/2024 8:36 AM [employer] Impressions 09/24/2024 8:36 AM [employer] Patchy airspace opacities greatest in the left lung base but also projecting over the left hilum and to a lesser extent the right hilum are not substantially changed and likely representing multifocal pneumonia and/or sequela of aspiration. Trace left pleural effusion. No right pleural effusion. No pneumothorax. Heart size is stable. Electronically signed by: Nithin Gonzalez MD, PHD Narrative 09/24/2024 8:36 AM [employer] EXAMINATION: XR CHEST 1 VIEW HISTORY: Shortness [...] lt * POCT glucose (09/24/2024 4:12 AM [employer]BLER) Glucose, POC 129 70 - 199 mg/dL Comment: For Glucose values <35 mg/dl when Hematocrit is >60 mg/dl,the test may not accurately detect significant hypoglycemia,and testing in the Laboratory should be considered if clinically indicated. Blood 09/24/2024 4:12 AM [employer]BLER 09/24/2024 4:12 AM [employer]BL[employer] Result [facility] Arnulfo Jordan MD LAB POCT ORDERABLES - DEVIC E Final Result Performing Organization Address [facility] Co de Phone Number [facility] [address] [place] [place] [address] * POCT glucose (09/24/2024 2:44 AM C[employer]SEMBLER) [facility] Glucose, POC 132 70 - 199 mg/dL Comment: For Glucose values <35 mg/dl when Hematocrit is >60 mg/dl,the test may not accurately detect significant hypoglycemia,and testing in the Laboratory should be considered if clinically indicated. Blood 09/24/2024 2:44 AM [employer]BLER 09/24/2024 2:44 AM [employer] Result [facility] Arnulfo Jordan MD LAB POCT ORDERABLES - DEVIC E Final Result Performing Organization Address [facility] Co de Phone Number [facility] [address] Department [place] [address] * (ABNORMAL) POCT glucose (09/24/2024 1:06 AM [employer]SEMBLER) Glucose, POC 59(L) 70 - 199 mg/dL Comment: For Glucose values <35 mg/dl when Hematocrit is >60 mg/dl,the test may not accurately detect significant hypoglycemia,and testing in the Laboratory should be considered if clinically indicated. Blood 09/24/2024 1:06 AM [employer]BLER 09/24/2024 1:06 AM [employer] Arnulfo Jordan MD LAB POCT ORDERABLES - DEVIC E Final Result Performing Organization Address [facility] de Phone Number [facility] [address] [place] [address] * (ABNORMAL) POCT glucose (09/24/2024 12:44 AM C[employer]SEMBLER) Glucose, POC 65(L) 70 - 199 mg/dL Comment: For Glucose values <35 mg/dl when Hematocrit is >60 mg/dl,the test may not accurately detect significant hypoglycemia,and testing in the Laboratory should be considered if clinically indicated. Blood 09/24/2024 12:4 4 AM [employer]BLER 09/24/2024 12:44 AM [employer]BL[employer] Result [facility] Arnulfo Jordan MD LAB POCT ORDERABLES - DEVIC E Final Result Performing Organization Address [facility] de Phone Number [facility] [address] [place] [address] * (ABNORMAL) POCT glucose (09/24/2024 12:22 AM C[employer]SEMBLER) Glucose, POC 68(L) 70 - 199 mg/dL Comment: For Glucose values <35 mg/dl when Hematocrit is >60 mg/dl,the test may not accurately detect significant hypoglycemia,and testing in the Laboratory should be considered if clinically indicated. Blood 09/24/2024 12:2 2 AM [employer]BLER 09/24/2024 12:22 AM [employer]BLER Result [facility] Arnulfo Jordan MD LAB POCT ORDERABLES - DEVIC E Final Result Performing Organization Address [facility] Co de Phone Number [facility] [address] [facility] [place] [address] * POCT glucose (09/23/2024 9:34 PM [employer]) Glucose, POC 80 70 - 199 mg/dL Comment: For Glucose values <35 mg/dl when Hematocrit is >60 mg/dl,the test may not accurately detect significant hypoglycemia,and testing in the Laboratory should be considered if clinically indicated. Blood 09/23/2024 9:34 PM [employer] 09/23/2024 9:34 PM [employer] Guillermo Nair LAB POCT ORDERABLES - DE VICE Final Result Performing Organization Address [facility] Co de Phone Number [facility] [address] [facility] [place] [address] * POCT glucose (09/23/2024 4:10 PM C[employer] WA[employer]SEMBLER) Glucose, POC 121 70 - 199 mg/dL Comment: For Glucose values <35 mg/dl when Hematocrit is >60 mg/dl,the test may not accurately detect significant hypoglycemia,and testing in the Laboratory should be considered if clinically indicated. Blood 09/23/2024 4:10 PM [employer] 09/23/2024 4:10 PM [employer] us Guillermo Nair LAB POCT ORDERABLES - DE VICE Final Result Performing Organization Address [facility] Co de Phone Number [facility] [address] [facility] [place] [address] * POCT glucose (09/23/2024 1:10 PM [employer]Y WA[employer]LE [employer]SEM[employer]) Glucose, POC 115 70 - 199 mg/dL Comment: For Glucose values <35 mg/dl when Hematocrit is >60 mg/dl,the test may not accurately detect significant hypoglycemia,and testing in the Laboratory should be considered if clinically indicated. Blood 09/23/2024 1:10 PM [employer] 09/23/2024 1:10 PM [employer] WA[employer]SEM[employer]ER Flo Villagran MD LAB POCT ORDERABLES - DEVICE Final Result Performing Organization Address [facility] Co de Phone Number [facility] [address] Department [place] [address] * POCT glucose (09/23/2024 12:18 PM [employer] WA[employer]SEMBLER) Glucose, POC 83 70 - 199 mg/dL Comment: For Glucose values <35 mg/dl when Hematocrit is >60 mg/dl,the test may not accurately detect significant hypoglycemia,and testing in the Laboratory should be considered if clinically indicated. Blood 09/23/2024 12:1 8 PM [employer] 09/23/2024 12:18 PM [employer] WA[employer]SEM[employer]ER Flo Villagran MD LAB POCT ORDERABLES - DEVICE Final Result Performing Organization Address [facility] Co de Phone Number [facility] [address] [facility] [place] [address] * (ABNORMAL) POCT glucose (09/23/2024 11:55 AM [employer] WAFFLE ASSEMBLER) Glucose, POC 69(L) 70 - 199 mg/dL Comment: For Glucose values <35 mg/dl when Hematocrit is >60 mg/dl,the test may not accurately detect significant hypoglycemia,and testing in the Laboratory should be considered if clinically indicated. Blood 09/23/2024 11:5 5 AM [employer] WA[employer] ASSEMBLER 09/23/2024 11:55 AM [employer] WA[employer]SEMBLER Flo Villagran MD LAB POCT ORDERABLES - DEVICE Final Result Performing Organization Address [facility] Co de Phone Number [facility] [address] [facility] [place] [address] * (ABNORMAL) POCT glucose (09/23/2024 11:54 AM C[employer]Y WAFFLE ASSEMBLER) Glucose, POC 63(L) 70 - 199 mg/dL Comment: For Glucose values <35 mg/dl when Hematocrit is >60 mg/dl,the test may not accurately detect significant hypoglycemia,and testing in the Laboratory should be considered if clinically indicated. Blood 09/23/2024 11:5 4 AM [employer] WA[employer]LE [employer]SEMBLER 09/23/2024 11:54 AM C[employer]Y WAFFLE ASSEMBLER Flo Villagran MD LAB POCT ORDERABLES - DEVICE Final Result Performing Organization Address [facility] de Phone Number [facility] [address] [facility] [place] [address] * POCT glucose (09/23/2024 7:47 AM C[employer]Y WAFFLE ASSEMBLER) Glucose, POC 71 70 - 199 mg/dL Comment: For Glucose values <35 mg/dl when Hematocrit is >60 mg/dl,the test may not accurately detect significant hypoglycemia,and testing in the Laboratory should be considered if clinically indicated. Blood 09/23/2024 7:47 AM [employer] WAFFLE ASSEMBLER 09/23/2024 7:47 AM [employer] WA[employer]LE ASSEMBLER Flo Villagran MD LAB POCT ORDERABLES - DEVICE Final Result Performing Organization Address [facility] de Phone Number [facility] [address] Department [place] [address] * POCT glucose (09/23/2024 3:27 AM CANDY WAFFLE ASSEMBLER) Glucose, POC 92 70 - 199 mg/dL Comment: For Glucose values <35 mg/dl when Hematocrit is >60 mg/dl,the test may not accurately detect significant hypoglycemia,and testing in the Laboratory should be considered if clinically indicated. Blood 09/23/2024 3:27 AM C[employer] WAFFLE ASSEMBLER 09/23/2024 3:27 AM C[employer]Y WAFFLE ASSEMBLER Flo Villagran MD LAB POCT ORDERABLES - DEVICE Final Result Performing Organization Address [facility] de Phone Number [facility] [address] [facility] [place] [address] * POCT glucose (09/23/2024 1:13 AM C[employer]Y WAFFLE ASSEMBLER) Glucose, POC 113 70 - 199 mg/dL Comment: For Glucose values <35 mg/dl when Hematocrit is >60 mg/dl,the test may not accurately detect significant hypoglycemia,and testing in the Laboratory should be considered if clinically indicated. Blood 09/23/2024 1:13 AM C[employer]Y WAFFLE ASSEMBLER 09/23/2024 1:13 AM C[employer]Y WAFFLE ASSEMBLER Flo Villagran MD LAB POCT ORDERABLES - DEVICE Final Result Performing Organization Address [facility] de Phone Number [facility] [address] [facility] [place] [address] * POCT glucose (09/23/2024 12:17 AM CANDY WAFFLE ASSEMBLER) Glucose, POC 195 70 - 199 mg/dL Comment: For Glucose values <35 mg/dl when Hematocrit is >60 mg/dl,the test may not accurately detect significant hypoglycemia,and testing in the Laboratory should be considered if clinically indicated. Blood 09/23/2024 12:1 7 AM C[employer]Y WAFFLE ASSEMBLER 09/23/2024 12:17 AM CANDY WAFFLE ASSEMBLER Flo Villagran MD LAB POCT ORDERABLES - DEVICE Final Result Performing Organization Address [facility] de Phone Number [facility] [address] [facility] [place] [address] * (ABNORMAL) POCT glucose (09/22/2024 11:54 PM CANDY WAFFLE ASSEMBLER) Glucose, POC 63(L) 70 - 199 mg/dL Comment: For Glucose values <35 mg/dl when Hematocrit is >60 mg/dl,the test may not accurately detect significant hypoglycemia,and testing in the Laboratory should be considered if clinically indicated. Blood 09/22/2024 11:5 4 PM CANDY WAFFLE ASSEMBLER 09/22/2024 11:54 PM CANDY WAFFLE ASSEMBLER Flo Villagran MD LAB POCT ORDERABLES - DEVICE Final Result Performing Organization Address [facility] Co de Phone Number [facility] [address] [facility] [place] [place] [address] * (ABNORMAL) Blood gas, arterial (09/22/2024 8:33 PM CANDY WAFFLE ASSEMBLER) pH, Art 7.44 7.35 - 7.45 PCO2, Arterial 37 35 - 45 mmHg [facility] PO2, Arterial 81(L) 83 - 108 mmHg [facility] HCO3 Art (Calculated) 25 20 - 30 mmol/L [facility] BE, art 1 mmol/L [facility] Comment: Interpretive Data No Reference Range Established Current Interpretive Data was last revised on 2017 O2 Sat Art (Calculated) 96 94 - 98 % [facility] Blood 09/22/2024 8:33 PM [employer]Y WAFFLE ASSEMBLER 09/22/2024 8:36 PM [employer] WAFFLE ASSEMBLER Chad Veras MD LAB BLOOD ORDERABLES Final R esult Performing Organization Address [facility] Co de Phone Number [facility] [address] [facility] [place] [address] * POCT glucose (09/22/2024 7:46 PM CANDY WAFFLE ASSEMBLER) Glucose, POC 95 70 - 199 mg/dL Comment: For Glucose values <35 mg/dl when Hematocrit is >60 mg/dl,the test may not accurately detect significant hypoglycemia,and testing in the Laboratory should be considered if clinically indicated. Blood 09/22/2024 7:46 PM CANDY WAFFLE ASSEMBLER 09/22/2024 7:46 PM CANDY WAFFLE ASSEMBLER Flo Villagran MD LAB POCT ORDERABLES - DEVICE Final Result Performing Organization Address [facility] Co de Phone Number [facility] [address] [facility] [place] [address] * POCT glucose (09/22/2024 4:04 PM CANDY WAFFLE ASSEMBLER) Glucose, POC 166 70 - 199 mg/dL Comment: For Glucose values <35 mg/dl when Hematocrit is >60 mg/dl,the test may not accurately detect significant hypoglycemia,and testing in the Laboratory should be considered if clinically indicated. Blood 09/22/2024 4:04 PM CANDY WAFFLE ASSEMBLER 09/22/2024 4:04 PM CANDY WAFFLE ASSEMBLER Flo Villagran MD LAB POCT ORDERABLES - DEVICE Final Result Performing Organization Address [facility] Co de Phone Number [facility] [address] [facility] [place] [address] * POCT glucose (09/22/2024 11:51 AM CANDY WAFFLE ASSEMBLER) Glucose, POC 187 70 - 199 mg/dL Comment: For Glucose values <35 mg/dl when Hematocrit is >60 mg/dl,the test may not accurately detect significant hypoglycemia,and testing in the Laboratory should be considered if clinically indicated. Blood 09/22/2024 11:5 1 AM CANDY WAFFLE ASSEMBLER 09/22/2024 11:51 AM CANDY WAFFLE ASSEMBLER Flo Villagran MD LAB POCT ORDERABLES - DEVICE Final Result Performing Organization Address [facility] Co de Phone Number [facility] [address] [facility] [place] [address] * (ABNORMAL) POCT glucose (09/22/2024 8:42 AM CANDY WAFFLE ASSEMBLER) Glucose, POC 210(H) 70 - 199 mg/dL Comment: For Glucose values <35 mg/dl when Hematocrit is >60 mg/dl,the test may not accurately detect significant hypoglycemia,and testing in the Laboratory should be considered if clinically indicated. Blood 09/22/2024 8:42 AM CANDY WAFFLE ASSEMBLER 09/22/2024 8:42 AM CANDY WAFFLE ASSEMBLER Flo Villagran MD LAB POCT ORDERABLES - DEVICE Final Result Performing Organization Address [facility] Co de Phone Number [facility] [address] [facility] [place] [address] * POCT glucose (09/22/2024 4:05 AM CANDY WAFFLE ASSEMBLER) [facility] Glucose, POC 199 70 - 199 mg/dL Comment: For Glucose values <35 mg/dl when Hematocrit is >60 mg/dl,the test may not accurately detect significant hypoglycemia,and testing in the Laboratory should be considered if clinically indicated. Blood 09/22/2024 4:05 AM CANDY WAFFLE ASSEMBLER 09/22/2024 4:05 AM CANDY WAFFLE ASSEMBLER Flo Villagran MD LAB POCT ORDERABLES - DEVICE Final Result Performing Organization Address [facility] de Phone Number [facility] [address] [place] [address] * XR Chest 1 View (09/22/2024 3:59 AM CANDY WAFFLE ASSEMBLER) Anatomical Region Laterality Modality Body, Chest N/A Computed Radiogr aphy 09/22/2024 9:18 AM CANDY WAFFLE ASSEMBLER Impressions 09/22/2024 9:18 AM CANDY WAFFLE ASSEMBLER The current study is compared with the [...] Blair Lopez M.D. Narrative 09/22/2024 9:18 AM CANDY WAFFLE ASSEMBLER EXAMINATION: XR CHEST 1 VIEW Procedure Note [...] lt * (ABNORMAL) eGFR (09/22/2024 2:24 AM CANDY WAFFLE ASSEMBLER) eGFR 53(L) >=60 mL/min/1. 73 m2 Comment: [...] last reviewed 2021. Blood 09/22/2024 2:24 AM CANDY WAFFLE ASSEMBLER 09/22/2024 2:55 AM CANDY WAFFLE ASSEMBLER Flo Villagran MD LAB BLOOD ORDERABLES Final R esult [facility] [address] [place] [address] * (ABNORMAL) CBC without differential (09/22/2024 2:24 AM CANDY WAFFLE ASSEMBLER) WBC 15.1(H) 3.8 - 9.9 K/cumm Hgb 7.5(L) 11.9 - 15.5 g/dL [facility] Hct 23.4(L) 35.6 - 45.5 % [facility] Plt 248 150 - 400 K/cumm [facility] MPV 12.5(H) 9.1 - 12.3 fL [facility] RBC 2.55(L) 3.90 - 5.20 M/cumm [facility] MCV 91.8 81.3 - 96.4 fL [facility] MCH 29.4 27.1 - 33.3 pg [facility] MCHC 32.1(L) 32.3 - 35.7 g/dL [facility] RDW CV 15.2(H) 11.1 - 14.9 % [facility] RDW SD 50.1(H) 35.7 - 48.1 fL [facility] NRBC abs 0.00 0.00 - 0.01 K/cumm [facility] Blood 09/22/2024 2:24 AM CANDY WAFFLE ASSEMBLER 09/22/2024 2:40 AM CANDY WAFFLE ASSEMBLER Flo Villagran MD LAB BLOOD ORDERABLES Final R esult Performing Organization Address [facility] Co de Phone Number [facility] [address] [place] [address] * Magnesium (09/22/2024 2:24 AM CANDY WAFFLE ASSEMBLER) Pathologist [facility] Magnesium 2.0 1.4 - 2.5 mg/dL Blood 09/22/2024 2:24 AM CANDY WAFFLE ASSEMBLER 09/22/2024 2:55 AM CANDY WAFFLE ASSEMBLER Flo Villagran MD LAB BLOOD ORDERABLES Final R esult Performing Organization Address [facility]/ZIP Co de Phone Number [facility] [address] [place] [address] * (ABNORMAL) Renal function panel (09/22/2024 2:24 AM CANDY WAFFLE ASSEMBLER) [facility] Sodium 140 135 - 145 mmol/L Potassium, pl 3.4 3.3 - 4.9 mmol/L [facility] Chloride 108 97 - 110 mmol/L [facility] CO2 20(L) 22 - 32 mmol/L [facility] Anion gap 12 2 - 15 mmol/L [facility] BUN 31(H) 6 - 25 mg/dL [facility] Creatinine 1.25(H) 0.60 - 1.10 mg/dL [facility] Glucose 189 70 - 199 mg/dL [facility] Comment: Interpretive Data Fasting glucose >/= 126 [...] 2022. Calcium 7.5(L) 8.5 - 10.3 mg/dL [facility] Phosphorus, pl 3.6 2.3 - 4.5 mg/dL [facility] Albumin 2.1(L) 3.5 - 5.0 g/dL [facility] Blood 09/22/2024 2:24 AM CANDY WAFFLE ASSEMBLER 09/22/2024 2:55 AM CANDY WAFFLE ASSEMBLER us Flo Villagran MD LAB BLOOD ORDERABLES Final R esult [facility] [address] [place] [address] * POCT glucose (09/21/2024 11:58 PM CANDY WAFFLE ASSEMBLER) [facility] Glucose, POC 177 70 - 199 mg/dL Comment: For Glucose values <35 mg/dl when Hematocrit is >60 mg/dl,the test may not accurately detect significant hypoglycemia,and testing in the Laboratory should be considered if clinically indicated. Blood 09/21/2024 11:5 8 PM CANDY WAFFLE ASSEMBLER 09/21/2024 11:58 PM CANDY WAFFLE ASSEMBLER Flo Villagran MD LAB POCT ORDERABLES - DEVICE Final Result Performing Organization Address [facility] Co de Phone Number [facility] [address] [facility] [place] [address] * POCT glucose (09/21/2024 7:01 PM CANDY WAFFLE ASSEMBLER) Glucose, POC 134 70 - 199 mg/dL Comment: For Glucose values <35 mg/dl when Hematocrit is >60 mg/dl,the test may not accurately detect significant hypoglycemia,and testing in the Laboratory should be considered if clinically indicated. Blood 09/21/2024 7:01 PM CANDY WAFFLE ASSEMBLER 09/21/2024 7:01 PM CANDY WAFFLE ASSEMBLER Flo Villagran MD LAB POCT ORDERABLES - DEVICE Final Result Performing Organization Address [facility] de Phone Number [facility] [address] [place] [address] * POCT glucose (09/21/2024 3:10 PM CANDY WAFFLE ASSEMBLER) Glucose, POC 140 70 - 199 mg/dL Comment: For Glucose values <35 mg/dl when Hematocrit is >60 mg/dl,the test may not accurately detect significant hypoglycemia,and testing in the Laboratory should be considered if clinically indicated. Blood 09/21/2024 3:10 PM CANDY WAFFLE ASSEMBLER 09/21/2024 3:10 PM CANDY WAFFLE ASSEMBLER Flo Villagran MD LAB POCT ORDERABLES - DEVICE Final Result Performing Organization Address [facility] de Phone Number [facility] [address] [place] [address] * Potassium (09/21/2024 2:07 PM CANDY WAFFLE ASSEMBLER) Potassium, pl 3.9 3.3 - 4.9 mmol/L Blood 09/21/2024 2:07 PM CANDY WAFFLE ASSEMBLER 09/21/2024 2:07 PM CANDY WAFFLE ASSEMBLER Flo Villagran MD LAB BLOOD ORDERABLES Final R esult Performing Organization Address [facility] Co de Phone Number [facility] [address] [place] [address] * (ABNORMAL) POCT glucose (09/21/2024 11:30 AM CANDY WAFFLE ASSEMBLER) Pathologist [facility] Glucose, POC 200(H) 70 - 199 mg/dL Comment: For Glucose values <35 mg/dl when Hematocrit is >60 mg/dl,the test may not accurately detect significant hypoglycemia,and testing in the Laboratory should be considered if clinically indicated. Blood 09/21/2024 11:3 0 AM CANDY WAFFLE ASSEMBLER 09/21/2024 11:30 AM CANDY WAFFLE ASSEMBLER Flo Villagran MD LAB POCT ORDERABLES - DEVICE Final Result Performing Organization Address [facility] de Phone Number [facility] [address] [place] [address] * (ABNORMAL) POCT glucose (09/21/2024 7:19 AM CANDY WAFFLE ASSEMBLER) Glucose, POC 230(H) 70 - 199 mg/dL Comment: For Glucose values <35 mg/dl when Hematocrit is >60 mg/dl,the test may not accurately detect significant hypoglycemia,and testing in the Laboratory should be considered if clinically indicated. Blood 09/21/2024 7:19 AM CANDY WAFFLE ASSEMBLER 09/21/2024 7:19 AM CANDY WAFFLE ASSEMBLER Flo Villagran MD LAB POCT ORDERABLES - DEVICE Final Result [facility] [address] [place] [address] * XR Chest 1 View (09/21/2024 4:44 AM CANDY WAFFLE ASSEMBLER) Anatomical Region Laterality Modality Body, Chest N/A Computed Radiogr aphy 09/21/2024 7:37 AM CANDY WAFFLE ASSEMBLER Impressions 09/21/2024 7:37 AM CANDY WAFFLE ASSEMBLER Comparison is made to 2024. Endotracheal tube 2.7 cm above the jessenia. Nasogastric tube tip located with diaphragm, not included [id number]. There is slightly improved aeration within the left retrocardiac location likely representing improving aspiration/pneumonia. There is mild right basilar atelectasis. No pleural effusion or pneumothorax. Stable heart size. Electronically signed by: Ruiz Coles M.D. Narrative 09/21/2024 7:37 AM CANDY WAFFLE ASSEMBLER Examination: Chest 1 view Procedure Note Ruiz Coles MD - 09/21/2024 Examination: Chest 1 view IMPRESSION: Comparison is made to 2024. Endotracheal tube 2.7 cm above the jessenia. Nasogastric tube tip located with diaphragm, not included [id number]. There is slightly improved aeration within the left retrocardiac location likely representing improving aspiration/pneumonia. There is mild right basilar atelectasis. No pleural effusion or pneumothorax. Stable heart size. Electronically signed by: Ruiz Coles M.D. Flo Villagran MD IMG XR PROCEDURES Final Resu lt * (ABNORMAL) POCT glucose (09/21/2024 3:47 AM CANDY WAFFLE ASSEMBLER) Glucose, POC 235(H) 70 - 199 mg/dL Comment: For Glucose values <35 mg/dl when Hematocrit is >60 mg/dl,the test may not accurately detect significant hypoglycemia,and testing in the Laboratory should be considered if clinically indicated. Blood 09/21/2024 3:47 AM CANDY WAFFLE ASSEMBLER 09/21/2024 3:47 AM CANDY WAFFLE ASSEMBLER Flo Villagran MD LAB POCT ORDERABLES - DEVICE Final Result Performing Organization Address [facility] Co de Phone Number [facility] [address] Department [employer] [place], [place] [id number] * (ABNORMAL) eGFR (09/21/2024 1:48 AM CANDY WAFFLE ASSEMBLER) eGFR 50(L) >=60 mL/min/1. 73 m2 Comment: [...] last reviewed 2021. Blood 09/21/2024 1:48 AM CANDY WAFFLE ASSEMBLER 09/21/2024 2:06 AM CANDY WAFFLE ASSEMBLER Flo Villagran MD LAB BLOOD ORDERABLES Final R esult Performing Organization Address [facility] Co de Phone Number [facility] [address] Department of [employer] [place], [place] [id number] * (ABNORMAL) CBC without differential (09/21/2024 1:48 AM CANDY WAFFLE ASSEMBLER) WBC 13.1(H) 3.8 - 9.9 K/cumm Hgb 7.6(L) 11.9 - 15.5 g/dL [facility] Hct 24.6(L) 35.6 - 45.5 % [facility] Plt 229 150 - 400 K/cumm [facility] MPV 12.5(H) 9.1 - 12.3 fL [facility] RBC 2.65(L) 3.90 - 5.20 M/cumm [facility] MCV 92.8 81.3 - 96.4 fL [facility] MCH 28.7 27.1 - 33.3 pg [facility] MCHC 30.9(L) 32.3 - 35.7 g/dL [facility] RDW CV 15.5(H) 11.1 - 14.9 % [facility] RDW SD 51.8(H) 35.7 - 48.1 fL [facility] NRBC abs 0.00 0.00 - 0.01 K/cumm [facility] Blood 09/21/2024 1:48 AM CANDY WAFFLE ASSEMBLER 09/21/2024 2:06 AM CANDY WAFFLE ASSEMBLER Flo Villagran MD LAB BLOOD ORDERABLES Final R esult Performing Organization Address [facility]/ZIP Co de Phone Number [facility] [address] [employer] [place], [place] [id number] * Phosphorus (09/21/2024 1:48 AM CANDY WAFFLE ASSEMBLER) Phosphorus, pl 3.2 2.3 - 4.5 mg/dL Blood 09/21/2024 1:48 AM CANDY WAFFLE ASSEMBLER 09/21/2024 2:06 AM CANDY WAFFLE ASSEMBLER Flo Villagran MD LAB BLOOD ORDERABLES Final R esult [facility] [address] [facility] [place] [address] * Magnesium (09/21/2024 1:48 AM CANDY WAFFLE ASSEMBLER) Magnesium 2.0 1.4 - 2.5 mg/dL Blood 09/21/2024 1:48 AM CANDY WAFFLE ASSEMBLER 09/21/2024 2:06 AM CANDY WAFFLE ASSEMBLER Flo Villagran MD LAB BLOOD ORDERABLES Final R esult Performing Organization Address [facility]/ZIP Co de Phone Number [facility] [address] [employer] [place] [address] * Bilirubin, direct (09/21/2024 1:48 AM CANDY WAFFLE ASSEMBLER) Pathologist [facility] Bilirubin, direct <0.2 0.1 - 0.3 mg/dL Blood 09/21/2024 1:48 AM CANDY WAFFLE ASSEMBLER 09/21/2024 2:06 AM CANDY WAFFLE ASSEMBLER Flo Villagran MD LAB BLOOD ORDERABLES Final R esult Performing Organization Address [facility] Co de Phone Number [facility] [address] [facility] [place] [address] * (ABNORMAL) Comprehensive metabolic panel (09/21/2024 1:48 AM CANDY WAFFLE ASSEMBLER) Pathologist [facility] Sodium 144 135 - 145 mmol/L Potassium, pl 2.9(L) 3.3 - 4.9 mmol/L [facility] Chloride 112(H) 97 - 110 mmol/L [facility] CO2 19(L) 22 - 32 mmol/L [facility] Anion gap 13 2 - 15 mmol/L [facility] BUN 32(H) 6 - 25 mg/dL [facility] Creatinine 1.31(H) 0.60 - 1.10 mg/dL [facility] Glucose 259(H) 70 - 199 mg/dL [facility] Comment: Interpretive Data Fasting glucose >/= 126 [...] 2022. Calcium 7.4(L) 8.5 - 10.3 mg/dL [facility] Bilirubin, total 0.2 0.1 - 1.2 mg/dL [facility] Protein, pl 5.6(L) 6.5 - 8.5 g/dL [facility] Albumin 2.0(L) 3.5 - 5.0 g/dL [facility] Alk phos 135(H) 40 - 130 Units/L [facility] ALT 16 7 - 45 Units/L [facility] AST 23 10 - 45 Units/L [facility] Blood 09/21/2024 1:48 AM [employer] 09/21/2024 2:06 AM [employer] Flo Villagran MD LAB BLOOD ORDERABLES Final R esult Performing Organization Address [facility] Co de Phone Number [facility] [address] Department [employer] [place], [place] [id number] * (ABNORMAL) POCT glucose (09/20/2024 11:54 PM [employer] WA[employer]SEM[employer]ER) Glucose, POC 264(H) 70 - 199 mg/dL Comment: For Glucose values <35 mg/dl when Hematocrit is >60 mg/dl,the test may not accurately detect significant hypoglycemia,and testing in the Laboratory should be considered if clinically indicated. Blood 09/20/2024 11:5 4 PM [employer] 09/20/2024 11:54 PM [employer]SEM[employer]ER Flo Villagran MD LAB POCT ORDERABLES - DEVICE Final Result Performing Organization Address [facility]/ZIP Co de Phone Number [facility] [address] [place] [address] * (ABNORMAL) POCT glucose (09/20/2024 7:03 PM [employer]SEMBLER) Glucose, POC 253(H) 70 - 199 mg/dL Comment: For Glucose values <35 mg/dl when Hematocrit is >60 mg/dl,the test may not accurately detect significant hypoglycemia,and testing in the Laboratory should be considered if clinically indicated. Blood 09/20/2024 7:03 PM [employer] 09/20/2024 7:03 PM [employer]SEM[employer]ER Flo Villagran MD LAB POCT ORDERABLES - DEVICE Final Result Performing Organization Address [facility] Co de Phone Number [facility] [address] [facility] [place] [address] * POCT glucose (09/20/2024 3:28 PM [employer] WA[employer]LE ASSEMBLER) Glucose, POC 179 70 - 199 mg/dL Comment: For Glucose values <35 mg/dl when Hematocrit is >60 mg/dl,the test may not accurately detect significant hypoglycemia,and testing in the Laboratory should be considered if clinically indicated. Blood 09/20/2024 3:28 PM [employer]SEMBLER 09/20/2024 3:28 PM [employer] ASSEMBLER Flo Villagran MD LAB POCT ORDERABLES - DEVICE Final Result Performing Organization Address [facility] Co de Phone Number [facility] [address] [facility] [place] [address] * (ABNORMAL) POCT glucose (09/20/2024 11:48 AM [employer] WA[employer]LE ASSEMBLER) Glucose, POC 213(H) 70 - 199 mg/dL Comment: For Glucose values <35 mg/dl when Hematocrit is >60 mg/dl,the test may not accurately detect significant hypoglycemia,and testing in the Laboratory should be considered if clinically indicated. Blood 09/20/2024 11:4 8 AM [employer] WA[employer]LE ASSEMBLER 09/20/2024 11:48 AM [employer] WA[employer]LE ASSEMBLER Flo Villagran MD LAB POCT ORDERABLES - DEVICE Final Result Performing Organization Address [facility] Co de Phone Number [facility] [address] [place] [address] * (ABNORMAL) Blood gas, arterial (09/20/2024 10:54 AM [employer] WA[employer]LE ASSEMBLER) pH, Art 7.43 7.35 - 7.45 PCO2, Arterial 30(L) 35 - 45 mmHg [facility] PO2, Arterial 82(L) 83 - 108 mmHg [facility] HCO3 Art (Calculated) 20 20 - 30 mmol/L [facility] BE, art -3 mmol/L [facility] Comment: Interpretive Data No Reference Range Established Current Interpretive Data was last revised on 2017 O2 Sat Art (Calculated) 96 94 - 98 % [facility] Blood 09/20/2024 10:5 4 AM [employer]SEM[employer]ER 09/20/2024 10:57 AM [employer] WA[employer]LE ASSEMBLER us Flo Villagran MD LAB BLOOD ORDERABLES Final R esult [facility] [address] Department [place] [address] * XR Chest 1 View (09/20/2024 9:17 AM C[employer]Y WAFFLE ASSEMBLER) Anatomical Region Laterality Modality Body, Chest N/A Computed Radiogr aphy 09/20/2024 10:0 9 AM [employer]SEM[employer]ER Impressions 09/20/2024 10:09 AM [employer] WA[employer]LE ASSEMBLER Comparison to 09/17/2024. An endotracheal tube terminates approximately 2.5 cm above the jessenia. Endogastric tube coils in the peripyloric region. Bilateral airspace opacities, left greater than right, with mid to lower lung zone predominance has slightly improved. No pleural effusion or pneumothorax. Unchanged heart size. The Electronically signed by: Gibran Astudillo M.D. Narrative 09/20/2024 10:09 AM [employer]Y WAFFLE ASSEMBLER EXAMINATION: 1 view chest radiograph Procedure Note [...] lt * POCT glucose (09/20/2024 7:20 AM CANDY WAFFLE ASSEMBLER) Pathologist [facility] Glucose, POC 159 70 - 199 mg/dL Comment: For Glucose values <35 mg/dl when Hematocrit is >60 mg/dl,the test may not accurately detect significant hypoglycemia,and testing in the Laboratory should be considered if clinically indicated. Blood 09/20/2024 7:20 AM [employer] WAFFLE ASSEMBLER 09/20/2024 7:20 AM C[employer]Y WAFFLE ASSEMBLER us Flo Villagran MD LAB POCT ORDERABLES - DEVICE Final Result Performing Organization Address [facility] Co de Phone Number [facility] [address] [employer] [place], [place] [id number] * POCT glucose (09/20/2024 3:37 AM CANDY WAFFLE ASSEMBLER) [facility] Glucose, POC 195 70 - 199 mg/dL Comment: For Glucose values <35 mg/dl when Hematocrit is >60 mg/dl,the test may not accurately detect significant hypoglycemia,and testing in the Laboratory should be considered if clinically indicated. Blood 09/20/2024 3:37 AM [employer]Y WAFFLE ASSEMBLER 09/20/2024 3:37 AM [employer] WAFFLE ASSEMBLER Flo Villagran MD LAB POCT ORDERABLES - DEVICE Final Result Performing Organization Address [facility] Co de Phone Number [facility] [address] [place] [address] * (ABNORMAL) eGFR (09/20/2024 12:27 AM C[employer] WAFFLE ASSEMBLER) [facility] eGFR 43(L) >=60 mL/min/1. 73 m2 Comment: [...] reviewed 2021. Blood 09/20/2024 12:2 7 AM [employer] WAFFLE ASSEMBLER 09/20/2024 12:27 AM [employer] WAFFLE ASSEMBLER us lEida Vigil DO LAB BLOOD ORDERABLES F inal Result [facility] [address] Department [place] [address] * (ABNORMAL) Differential, auto (09/20/2024 12:27 AM C[employer] WAFFLE ASSEMBLER) Neutrophil abs 8.9(H) 1.5 - 6.5 K/cumm Imm gran abs 0.5(H) 0.0 - 0.1 K/cumm [facility] Lymphocyte abs 0.9 0.8 - 3.3 K/cumm [facility] Monocyte abs 0.7 0.2 - 0.8 K/cumm [facility] Eosinophil abs 0.2 0.0 - 0.5 K/cumm [facility] Basophil abs 0.0 0.0 - 0.1 K/cumm [facility] Neutrophil pct 79.8 % [facility] Comment: Interpretive Data Percent cell count reference ranges are not reported, since discordance with absolute values may lead to misinterpretation of CBC data. Current Interpretive Data was last revised on 2017. Imm gran pct 4.5 % [facility] Comment: Interpretive Data Percent cell count reference ranges are not reported, since discordance with absolute values may lead to misinterpretation of CBC data. Current Interpretive Data was last revised on 2017. Lymphocyte pct 7.8 % [facility] Comment: Interpretive Data Percent cell count reference ranges are not reported, since discordance with absolute values may lead to misinterpretation of CBC data. Current Interpretive Data was last revised on 2017. Monocyte pct 6.3 % [facility] Comment: Interpretive Data Percent cell count reference ranges are not reported, since discordance with absolute values may lead to misinterpretation of CBC data. Current Interpretive Data was last revised on 2017. Eosinophil pct 1.4 % [facility] Comment: Interpretive Data Percent cell count reference ranges are not reported, since discordance with absolute values may lead to misinterpretation of CBC data. Current Interpretive Data was last revised on 2017. Basophil pct 0.2 % [facility] Comment: Interpretive Data Percent cell count reference ranges are not reported, since discordance with absolute values may lead to misinterpretation of CBC data. Current Interpretive Data was last revised on 2017. Blood 09/20/2024 12:2 7 AM [employer] WAFFLE ASSEMBLER 09/20/2024 12:27 AM [employer] WAFFLE ASSEMBLER us Elida Vigil DO LAB BLOOD ORDERABLES F inal Result [facility] [address] Department [place] [address] * (ABNORMAL) CBC with auto differential (09/20/2024 12:27 AM C[employer]Y WAFFLE ASSEMBLER) WBC 11.2(H) 3.8 - 9.9 K/cumm Hgb 7.6(L) 11.9 - 15.5 g/dL [facility] Hct 24.5(L) 35.6 - 45.5 % [facility] Plt 190 150 - 400 K/cumm [facility] MPV 13.0(H) 9.1 - 12.3 fL [facility] RBC 2.67(L) 3.90 - 5.20 M/cumm [facility] MCV 91.8 81.3 - 96.4 fL [facility] MCH 28.5 27.1 - 33.3 pg [facility] MCHC 31.0(L) 32.3 - 35.7 g/dL [facility] RDW CV 15.2(H) 11.1 - 14.9 % [facility] RDW SD 50.5(H) 35.7 - 48.1 fL [facility] NRBC abs 0.00 0.00 - 0.01 K/cumm [facility] Blood 09/20/2024 12:2 7 AM [employer] WAFFLE ASSEMBLER 09/20/2024 12:27 AM [employer] WAFFLE ASSEMBLER us Elida Vigil DO LAB BLOOD ORDERABLES F inal Result [facility] [address] Department [place] [address] * (ABNORMAL) Comprehensive metabolic panel (09/20/2024 12:27 AM C[employer]Y WAFFLE ASSEMBLER) Sodium 147(H) 135 - 145 mmol/L Potassium, pl 3.3 3.3 - 4.9 mmol/L [facility] Chloride 117(H) 97 - 110 mmol/L [facility] CO2 18(L) 22 - 32 mmol/L [facility] Anion gap 12 2 - 15 mmol/L [facility] BUN 40(H) 6 - 25 mg/dL [facility] Creatinine 1.48(H) 0.60 - 1.10 mg/dL [facility] Glucose 221(H) 70 - 199 mg/dL [facility] Comment: Interpretive Data Fasting glucose >/= 126 [...] 2022. Calcium 7.5(L) 8.5 - 10.3 mg/dL [facility] Bilirubin, total 0.2 0.1 - 1.2 mg/dL [facility] Protein, pl 5.6(L) 6.5 - 8.5 g/dL [facility] Albumin 2.1(L) 3.5 - 5.0 g/dL [facility] Alk phos 134(H) 40 - 130 Units/L [facility] ALT 14 7 - 45 Units/L [facility] AST 27 10 - 45 Units/L [facility] Blood 09/20/2024 12:2 7 AM [employer] WAFFLE ASSEMBLER 09/20/2024 12:27 AM C[employer] WAFFLE ASSEMBLER us Elida Vigil DO LAB BLOOD ORDERABLES F inal Result Performing Organization Address City/[facility]/ZIP Co de Phone Number [facility] [address] [place] [address] * (ABNORMAL) POCT glucose (09/19/2024 11:00 PM CANDY WAFFLE ASSEMBLER) Glucose, POC 217(H) 70 - 199 mg/dL Comment: For Glucose values <35 mg/dl when Hematocrit is >60 mg/dl,the test may not accurately detect significant hypoglycemia,and testing in the Laboratory should be considered if clinically indicated. Blood 09/19/2024 11:0 0 PM [employer] WAFFLE ASSEMBLER 09/19/2024 11:00 PM C[employer] WAFFLE ASSEMBLER us Flo Villagran MD LAB POCT ORDERABLES - DEVICE Final Result [facility] [address] [place] [address] * POCT glucose (09/19/2024 7:52 PM CANDY WAFFLE ASSEMBLER) Glucose, POC 196 70 - 199 mg/dL Comment: For Glucose values <35 mg/dl when Hematocrit is >60 mg/dl,the test may not accurately detect significant hypoglycemia,and testing in the Laboratory should be considered if clinically indicated. Blood 09/19/2024 7:52 PM C[employer]Y WAFFLE ASSEMBLER 09/19/2024 7:52 PM CANDY WAFFLE ASSEMBLER Flo Villagran MD LAB POCT ORDERABLES - DEVICE Final Result Performing Organization Address [facility] Co de Phone Number [facility] [address] [facility] [place] [address] * POCT glucose (09/19/2024 4:55 PM CANDY WAFFLE ASSEMBLER) Glucose, POC 179 70 - 199 mg/dL Comment: For Glucose values <35 mg/dl when Hematocrit is >60 mg/dl,the test may not accurately detect significant hypoglycemia,and testing in the Laboratory should be considered if clinically indicated. Blood 09/19/2024 4:55 PM CANDY WAFFLE ASSEMBLER 09/19/2024 4:55 PM CAND[employer] WAFFLE ASSEMBLER Flo Villagran MD LAB POCT ORDERABLES - DEVICE Final Result Performing Organization Address [facility] Co de Phone Number [facility] [address] [facility] [place] [address] * (ABNORMAL) POCT glucose (09/19/2024 12:31 PM CANDY WAFFLE ASSEMBLER) Glucose, POC 260(H) 70 - 199 mg/dL Comment: For Glucose values <35 mg/dl when Hematocrit is >60 mg/dl,the test may not accurately detect significant hypoglycemia,and testing in the Laboratory should be considered if clinically indicated. Blood 09/19/2024 12:3 1 PM [employer]Y WAFFLE ASSEMBLER 09/19/2024 12:31 PM CANDY WAFFLE ASSEMBLER Flo Villagran MD LAB POCT ORDERABLES - DEVICE Final Result Performing Organization Address [facility]/ZIP Co de Phone Number [facility] [address] [facility] [place] [place] [address] * Potassium (09/19/2024 10:04 AM CANDY WAFFLE ASSEMBLER) Potassium, pl 3.4 3.3 - 4.9 mmol/L Blood 09/19/2024 10:0 4 AM C[employer] WAFFLE ASSEMBLER 09/19/2024 10:12 AM CANDY WAFFLE ASSEMBLER us Elida Winsome Musa DO LAB BLOOD ORDERABLES F inal Result [facility] [address] [place] [address] * EEG (09/19/2024 8:50 AM CANDY WAFFLE ASSEMBLER) Anatomical Region Laterality Modality EEG Narrative 09/19/2024 1:18 PM CANDY WAFFLE ASSEMBLER REPORT OF ELECTROENCEPHALOGRAM DATE OF STUDY: 09/19/24 Brooke Marshall 1975 REASON FOR STUDY: Confusional state BRIEF HISTORY: Brooke Marshall is a 48 y.o. year old female currently in the ICU, still on ventilator. Admitted with DKA and influenza. Has been witnessed to have diminished mental status. DESCRIPTION: This is a routine 18-channel EEG. The underlying background rhythm consists of a [id number] voltage 5-7 Hz theta rhythm which remains [...] * (ABNORMAL) POCT glucose (09/19/2024 7:53 AM CANDY WAFFLE ASSEMBLER) Glucose, POC 214(H) 70 - 199 mg/dL Comment: For Glucose values <35 mg/dl when Hematocrit is >60 mg/dl,the test may not accurately detect significant hypoglycemia,and testing in the Laboratory should be considered if clinically indicated. Blood 09/19/2024 7:53 AM CANDY WAFFLE ASSEMBLER 09/19/2024 7:53 AM CANDY WAFFLE ASSEMBLER Elida Schumacher [employer] LAB POCT ORDERABLES - DEVICE Final Result Performing Organization Address [facility] de Phone Number [facility] [address] [facility] [place] [address] * (ABNORMAL) POCT glucose (09/19/2024 3:58 AM CANDY WAFFLE ASSEMBLER) Glucose, POC 234(H) 70 - 199 mg/dL Comment: For Glucose values <35 mg/dl when Hematocrit is >60 mg/dl,the test may not accurately detect significant hypoglycemia,and testing in the Laboratory should be considered if clinically indicated. Blood 09/19/2024 3:58 AM CANDY WAFFLE ASSEMBLER 09/19/2024 3:58 AM CANDY WAFFLE ASSEMBLER Elida Winsome Vigil [facility] POCT ORDERABLES - DEVICE Final Result Performing Organization Address [facility] Co de Phone Number [facility] [address] [facility] [employer] [place], [place] [id number] * (ABNORMAL) eGFR (09/19/2024 1:46 AM CANDY WAFFLE ASSEMBLER) eGFR 36(L) >=60 mL/min/1. 73 m2 Comment: [...] last reviewed 2021. Blood 09/19/2024 1:46 AM CANDY WAFFLE ASSEMBLER 09/19/2024 1:46 AM CANDY WAFFLE ASSEMBLER us Elida Vigil DO LAB BLOOD ORDERABLES F inal Result [facility] [address] Department [place] [address] * (ABNORMAL) Differential, auto (09/19/2024 1:46 AM CANDY WAFFLE ASSEMBLER) Neutrophil abs 6.7(H) 1.5 - 6.5 K/cumm Imm gran abs 0.5(H) 0.0 - 0.1 K/cumm [facility] Lymphocyte abs 0.7(L) 0.8 - 3.3 K/cumm [facility] Monocyte abs 1.1(H) 0.2 - 0.8 K/cumm [facility] Eosinophil abs 0.1 0.0 - 0.5 K/cumm [facility] Basophil abs 0.0 0.0 - 0.1 K/cumm [facility] Neutrophil pct 72.5 % [facility] Comment: Interpretive Data Percent cell count reference ranges are not reported, since discordance with absolute values may lead to misinterpretation of CBC data. Current Interpretive Data was last revised on 2017. Imm gran pct 5.8 % [facility] Comment: Interpretive Data Percent cell count reference ranges are not reported, since discordance with absolute values may lead to misinterpretation of CBC data. Current Interpretive Data was last revised on 2017. Lymphocyte pct 8.1 % [facility] Comment: Interpretive Data Percent cell count reference ranges are not reported, since discordance with absolute values may lead to misinterpretation of CBC data. Current Interpretive Data was last revised on 2017. Monocyte pct 12.3 % [facility] Comment: Interpretive Data Percent cell count reference ranges are not reported, since discordance with absolute values may lead to misinterpretation of CBC data. Current Interpretive Data was last revised on 2017. Eosinophil pct 1.2 % [facility] Comment: Interpretive Data Percent cell count reference ranges are not reported, since discordance with absolute values may lead to misinterpretation of CBC data. Current Interpretive Data was last revised on 2017. Basophil pct 0.1 % [facility] Comment: Interpretive Data Percent cell count reference ranges are not reported, since discordance with absolute values may lead to misinterpretation of CBC data. Current Interpretive Data was last revised on 2017. Blood 09/19/2024 1:46 AM CANDY WAFFLE ASSEMBLER 09/19/2024 1:46 AM CANDY WAFFLE ASSEMBLER us Elida Vigil DO LAB BLOOD ORDERABLES F inal Result [facility] [address] Department [place] [address] * (ABNORMAL) CBC with auto differential (09/19/2024 1:46 AM CANDY WAFFLE ASSEMBLER) WBC 9.2 3.8 - 9.9 K/cumm Hgb 7.5(L) 11.9 - 15.5 g/dL [facility] Hct 23.7(L) 35.6 - 45.5 % [facility] Plt 150 150 - 400 K/cumm [facility] MPV 13.4(H) 9.1 - 12.3 fL [facility] RBC 2.61(L) 3.90 - 5.20 M/cumm [facility] MCV 90.8 81.3 - 96.4 fL [facility] MCH 28.7 27.1 - 33.3 pg [facility] MCHC 31.6(L) 32.3 - 35.7 g/dL [facility] RDW CV 14.9 11.1 - 14.9 % [facility] RDW SD 49.1(H) 35.7 - 48.1 fL [facility] NRBC abs 0.00 0.00 - 0.01 K/cumm [facility] Blood 09/19/2024 1:46 AM CANDY WAFFLE ASSEMBLER 09/19/2024 1:46 AM CANDY WAFFLE ASSEMBLER [employer] DO LAB BLOOD ORDERABLES E dited Result - Final Performing Organization Address [facility]/ZIP Co de Phone Number [facility] [address] [facility] [employer] [place], [place] [id number] * Manual Differential (09/19/2024 1:46 AM CANDY WAFFLE ASSEMBLER) [facility] Differential Auto RBC morphology Normal [facility] Morphology scrn See Comment [facility] Comment:PLT: Platelet morpho logy normal Blood 09/19/2024 1:46 AM CANDY WAFFLE ASSEMBLER 09/19/2024 1:46 AM CANDY WAFFLE ASSEMBLER [email or web address] DO LAB BLOOD ORDERABLES F inal Result Performing Organization Address [facility] Co de Phone Number [facility] [address] [facility] [place] [address] * Phosphorus (09/19/2024 1:46 AM CANDY WAFFLE ASSEMBLER) Pathologist [facility] Phosphorus, pl 3.0 2.3 - 4.5 mg/dL Blood 09/19/2024 1:46 AM CANDY WAFFLE ASSEMBLER 09/19/2024 1:46 AM CANDY WAFFLE ASSEMBLER [employer] DO LAB BLOOD ORDERABLES F inal Result Performing Organization Address City/[facility] Co de Phone Number [facility] [address] [facility] [place] [address] * Magnesium (09/19/2024 1:46 AM CANDY WAFFLE ASSEMBLER) Pathologist [facility] Magnesium 2.3 1.4 - 2.5 mg/dL Blood 09/19/2024 1:46 AM CANDY WAFFLE ASSEMBLER 09/19/2024 1:46 AM CANDY WAFFLE ASSEMBLER us Elida Vigil DO LAB BLOOD ORDERABLES F inal Result [facility] [address] Department [place] [address] * (ABNORMAL) Comprehensive metabolic panel (09/19/2024 1:46 AM CANDY WAFFLE ASSEMBLER) Pathologist [facility] Sodium 145 135 - 145 mmol/L Potassium, pl 2.6(C) 3.3 - 4.9 mmol/L [facility] Comment:Critical result call ed to and read back by Amber Gaines (RN) on 09/19/24 @ 0210 to [id number] Chloride 113(H) 97 - 110 mmol/L [facility] CO2 20(L) 22 - 32 mmol/L [facility] Anion gap 12 2 - 15 mmol/L [facility] BUN 41(H) 6 - 25 mg/dL [facility] Creatinine 1.73(H) 0.60 - 1.10 mg/dL [facility] Glucose 249(H) 70 - 199 mg/dL [facility] Comment: Interpretive Data Fasting glucose >/= 126 [...] 2022. Calcium 7.5(L) 8.5 - 10.3 mg/dL [facility] Bilirubin, total 0.3 0.1 - 1.2 mg/dL [facility] Protein, pl 5.6(L) 6.5 - 8.5 g/dL [facility] Albumin 2.0(L) 3.5 - 5.0 g/dL [facility] Alk phos 127 40 - 130 Units/L [facility] ALT 12 7 - 45 Units/L [facility] AST 24 10 - 45 Units/L [facility] Blood 09/19/2024 1:46 AM CANDY WAFFLE ASSEMBLER 09/19/2024 1:46 AM CANDY WAFFLE ASSEMBLER [employer] DO LAB BLOOD ORDERABLES F inal Result Performing Organization Address [facility] Co de Phone Number [facility] [address] [facility] [employer] [place], [place] [id number] * Ammonia (09/19/2024 1:07 AM [employer]) Ammonia 40 <=50 mcmol/L Blood 09/19/2024 1:07 AM [employer]ER 09/19/2024 1:12 AM [employer] WA[employer]LE [employer]SEM[employer]ER natue LAB BLOOD ORDERABLES F inal Result Performing Organization Address [facility] de Phone Number [facility] [address] [facility] [employer] [place], [place] [id number] * (ABNORMAL) POCT glucose (09/18/2024 11:58 PM [employer]SEMBLER) Glucose, POC 231(H) 70 - 199 mg/dL Comment: For Glucose values <35 mg/dl when Hematocrit is >60 mg/dl,the test may not accurately detect significant hypoglycemia,and testing in the Laboratory should be considered if clinically indicated. Blood 09/18/2024 11:5 8 PM [employer]SEMBLER 09/18/2024 11:58 PM [employer]ER Zadara Stor[employer] LAB POCT ORDERABLES - DEVICE Final Result Performing Organization Address [facility] Co de Phone Number [facility] [address] [facility] [place] [address] * (ABNORMAL) POCT glucose (09/18/2024 9:10 PM [employer]) Glucose, POC 261(H) 70 - 199 mg/dL Comment: For Glucose values <35 mg/dl when Hematocrit is >60 mg/dl,the test may not accurately detect significant hypoglycemia,and testing in the Laboratory should be considered if clinically indicated. Blood 09/18/2024 9:10 PM [employer]SEMBLER 09/18/2024 9:10 PM [employer] WA[employer]SEMBLER Elida Winsome Vigil DO LAB POCT ORDERABLES - DEVICE Final Result Performing Organization Address [facility] de Phone Number [facility] [address] [facility] [place] [address] * (ABNORMAL) POCT glucose (09/18/2024 4:18 PM [employer] WA[employer]SEMBLER) Glucose, POC 229(H) 70 - 199 mg/dL Comment: For Glucose values <35 mg/dl when Hematocrit is >60 mg/dl,the test may not accurately detect significant hypoglycemia,and testing in the Laboratory should be considered if clinically indicated. Blood 09/18/2024 4:18 PM [employer] WA[employer]SEMBLER 09/18/2024 4:18 PM [employer] WA[employer]SEMBLER Elida Vigil DO LAB POCT ORDERABLES - DEVICE Final Result Performing Organization Address [facility] Co de Phone Number [facility] [address] [place] [address] * (ABNORMAL) POCT glucose (09/18/2024 12:07 PM [employer] WA[employer]SEMBLER) Glucose, POC 260(H) 70 - 199 mg/dL Comment: For Glucose values <35 mg/dl when Hematocrit is >60 mg/dl,the test may not accurately detect significant hypoglycemia,and testing in the Laboratory should be considered if clinically indicated. Blood 09/18/2024 12:0 7 PM [employer] WA[employer]SEMBLER 09/18/2024 12:07 PM [employer] WA[employer] ASSEMBLER Elida Verahenok DO LAB POCT ORDERABLES - DEVICE Final Result Performing Organization Address City/[facility]/ZIP Co de Phone Number [facility] [address] [place] [address] * (ABNORMAL) DIC Platelet (09/18/2024 8:13 AM [employer] WAFFLE ASSEMBLER) [facility] Plt 147(L) 150 - 400 K/cumm Blood 09/18/2024 8:13 AM [employer] WA[employer] ASSEMBLER 09/18/2024 8:25 AM [employer]Y WAFF[employer] ASSEMBLER Elida Verahenok [facility] BLOOD ORDERABLES E dited Result - Final Performing Organization Address [facility] de Phone Number [facility] [address] [place] [address] * (ABNORMAL) Differential, auto (09/18/2024 8:13 AM [employer] WA[employer] ASSEMBLER) [facility] Neutrophil abs 7.0(H) 1.5 - 6.5 K/cumm Imm gran abs 0.6(H) 0.0 - 0.1 K/cumm [facility] Lymphocyte abs 0.7(L) 0.8 - 3.3 K/cumm [facility] Monocyte abs 1.4(H) 0.2 - 0.8 K/cumm [facility] Eosinophil abs 0.1 0.0 - 0.5 K/cumm [facility] Basophil abs 0.1 0.0 - 0.1 K/cumm [facility] Neutrophil pct 71.8 % [facility] Comment: Interpretive Data Percent cell count reference ranges are not reported, since discordance with absolute values may lead to misinterpretation of CBC data. Current Interpretive Data was last revised on 2017. Imm gran pct 6.0 % [facility] Comment: Interpretive Data Percent cell count reference ranges are not reported, since discordance with absolute values may lead to misinterpretation of CBC data. Current Interpretive Data was last revised on 2017. Lymphocyte pct 6.6 % [facility] Comment: Interpretive Data Percent cell count reference ranges are not reported, since discordance with absolute values may lead to misinterpretation of CBC data. Current Interpretive Data was last revised on 2017. Monocyte pct 14.1 % [facility] Comment: Interpretive Data Percent cell count reference ranges are not reported, since discordance with absolute values may lead to misinterpretation of CBC data. Current Interpretive Data was last revised on 2017. Eosinophil pct 0.9 % [facility] Comment: Interpretive Data Percent cell count reference ranges are not reported, since discordance with absolute values may lead to misinterpretation of CBC data. Current Interpretive Data was last revised on 2017. Basophil pct 0.6 % [facility] Comment: Interpretive Data Percent cell count reference ranges are not reported, since discordance with absolute values may lead to misinterpretation of CBC data. Current Interpretive Data was last revised on 2017. Blood 09/18/2024 8:13 AM [employer]Y WAFFLE ASSEMBLER 09/18/2024 8:13 AM [employer]Y WAFFLE ASSEMBLER Zadara Storagerice [employer] DO LAB BLOOD ORDERABLES F inal Result Performing Organization Address [facility] Co de Phone Number [facility] [address] [place] [employer] [place] [address] * DIC Schistocytes (09/18/2024 8:13 AM [employer] WAFFLE ASSEMBLER) Schistocytes None Seen None Seen Blood 09/18/2024 8:13 AM C[employer]Y WAFFLE ASSEMBLER 09/18/2024 8:25 AM CANDY WAFFLE ASSEMBLER Zadara Storagerice [email or web address] DO LAB BLOOD ORDERABLES F inal Result Performing Organization Address [facility]/ZIP Co de Phone Number [facility] [address] Department [place] [place] [address] * (ABNORMAL) CBC with auto differential (09/18/2024 8:13 AM CANDY WAFFLE ASSEMBLER) WBC 9.8 3.8 - 9.9 K/cumm Hgb 8.9(L) 11.9 - 15.5 g/dL [facility] Hct 28.7(L) 35.6 - 45.5 % [facility] Plt 147(L) 150 - 400 K/cumm [facility] MPV 13.2(H) 9.1 - 12.3 fL [facility] RBC 3.06(L) 3.90 - 5.20 M/cumm [facility] MCV 93.8 81.3 - 96.4 fL [facility] MCH 29.1 27.1 - 33.3 pg [facility] MCHC 31.0(L) 32.3 - 35.7 g/dL [facility] RDW CV 14.7 11.1 - 14.9 % [facility] RDW SD 50.8(H) 35.7 - 48.1 fL [facility] NRBC abs 0.03(H) 0.00 - 0.01 K/cumm [facility] Blood 09/18/2024 8:13 AM C[employer]Y WAFFLE ASSEMBLER 09/18/2024 8:20 AM CANDY WAFFLE ASSEMBLER Elida Vigil DO LAB BLOOD ORDERABLES E dited Result - Final Performing Organization Address [facility] Co de Phone Number [facility] [address] [place] [address] * (ABNORMAL) POCT glucose (09/18/2024 7:57 AM CANDY WAFFLE ASSEMBLER) [facility] Signature Glucose, POC 271(H) 70 - 199 mg/dL Comment: For Glucose values <35 mg/dl when Hematocrit is >60 mg/dl,the test may not accurately detect significant hypoglycemia,and testing in the Laboratory should be considered if clinically indicated. Blood 09/18/2024 7:57 AM [employer]Y WAFFLE ASSEMBLER 09/18/2024 7:57 AM [employer]Y WAFFLE ASSEMBLER us Elida Vigil DO LAB POCT ORDERABLES - DEVICE Final Result Performing Organization Address [facility]/ZIP Co de Phone Number [facility] [address] Department [place] [address] * (ABNORMAL) POCT glucose (09/18/2024 7:56 AM CANDY WAFFLE ASSEMBLER) [facility] Glucose, POC 240(H) 70 - 199 mg/dL Comment: For Glucose values <35 mg/dl when Hematocrit is >60 mg/dl,the test may not accurately detect significant hypoglycemia,and testing in the Laboratory should be considered if clinically indicated. Blood 09/18/2024 7:56 AM CANDY WAFFLE ASSEMBLER 09/18/2024 7:56 AM CANDY WAFFLE ASSEMBLER us Elida Vigil DO LAB POCT ORDERABLES - DEVICE Final Result [facility] [address] Department [place] [address] * (ABNORMAL) eGFR (09/18/2024 7:26 AM CANDY WAFFLE ASSEMBLER) [facility] eGFR 40(L) >=60 mL/min/1. 73 m2 Comment: [...] last reviewed 2021. Blood 09/18/2024 7:26 AM CANDY WAFFLE ASSEMBLER 09/18/2024 7:47 AM CANDY WAFFLE ASSEMBLER us Elida Vigil DO LAB BLOOD ORDERABLES F inal Result [facility] [address] [facility] [place] [address] * Phosphorus (09/18/2024 7:26 AM CANDY WAFFLE ASSEMBLER) Pathologist [facility] Phosphorus, pl 2.9 2.3 - 4.5 mg/dL Comment:Reviewed - dialysis patient Blood 09/18/2024 7:26 AM CANDY WAFFLE ASSEMBLER 09/18/2024 7:47 AM CANDY WAFFLE ASSEMBLER Elida Vigil DO LAB BLOOD ORDERABLES F inal Result Performing Organization Address [facility] Co de Phone Number [facility] [address] [facility] [place] [address] * Magnesium (09/18/2024 7:26 AM CANDY WAFFLE ASSEMBLER) [facility] Magnesium 2.3 1.4 - 2.5 mg/dL Blood 09/18/2024 7:26 AM CANDY WAFFLE ASSEMBLER 09/18/2024 7:47 AM CANDY WAFFLE ASSEMBLER Elida Vigil DO LAB BLOOD ORDERABLES F inal Result Performing Organization Address [facility] Co de Phone Number [facility] [address] [facility] [place] [address] * Vitamin B12 (09/18/2024 7:26 AM CANDY WAFFLE ASSEMBLER) Pathologist [facility] Vitamin B12 878 230 - 1,250 pg/mL Blood 09/18/2024 7:26 AM CANDY WAFFLE ASSEMBLER 09/18/2024 7:47 AM CANDY WAFFLE ASSEMBLER Elida Vigil DO LAB BLOOD ORDERABLES F inal Result [facility] [address] [facility] [place] [address] * (ABNORMAL) Comprehensive metabolic panel (09/18/2024 7:26 AM CANDY WAFFLE ASSEMBLER) Sodium 143 135 - 145 mmol/L Potassium, pl 3.4 3.3 - 4.9 mmol/L [facility] Comment:Hemolyzed; potassium value may be falsely elevated by as much as 0.3 - 0.5 mmol/L. Suggest redraw and reanalysis Chloride 111(H) 97 - 110 mmol/L [facility] CO2 19(L) 22 - 32 mmol/L [facility] Anion gap 13 2 - 15 mmol/L [facility] BUN 39(H) 6 - 25 mg/dL [facility] Creatinine 1.57(H) 0.60 - 1.10 mg/dL [facility] Glucose 227(H) 70 - 199 mg/dL [facility] Comment: Interpretive Data Fasting glucose >/= 126 [...] 2022. Calcium 7.8(L) 8.5 - 10.3 mg/dL [facility] Bilirubin, total 0.4 0.1 - 1.2 mg/dL [facility] Protein, pl 5.9(L) 6.5 - 8.5 g/dL [facility] Albumin 2.2(L) 3.5 - 5.0 g/dL [facility] Alk phos 141(H) 40 - 130 Units/L [facility] ALT 18 7 - 45 Units/L [facility] AST 31 10 - 45 Units/L [facility] Comment:Slightly Hemolyzed S pecimen Blood 09/18/2024 7:26 AM CANDY WAFFLE ASSEMBLER 09/18/2024 7:47 AM CANDY WAFFLE ASSEMBLER us Zadara Storagerice [employer] LAB BLOOD ORDERABLES F inal Result Performing Organization Address [facility] Co de Phone Number [facility] [address] [facility] [place] [place] [address] * (ABNORMAL) POCT glucose (09/18/2024 4:28 AM CANDY WAFFLE ASSEMBLER) Glucose, POC 243(H) 70 - 199 mg/dL Comment: For Glucose values <35 mg/dl when Hematocrit is >60 mg/dl,the test may not accurately detect significant hypoglycemia,and testing in the Laboratory should be considered if clinically indicated. Blood 09/18/2024 4:28 AM CANDY WAFFLE ASSEMBLER 09/18/2024 4:28 AM CANDY WAFFLE ASSEMBLER Elida Winsome [employer] LAB POCT ORDERABLES - DEVICE Final Result Performing Organization Address [facility] Co de Phone Number [facility] [address] [facility] [place] [place] [address] * (ABNORMAL) DIC Coagulation (09/18/2024 4:20 AM CANDY WAFFLE ASSEMBLER) Pathologist [facility] PT DIC 10.5 10.3 - 13.7 sec INR DIC 0.97 0.90 - 1.20 [facility] PTT DIC 18(L) 28 - 38 sec [facility] Comment: Specimen integrity okay Interpretive Data Heparin therapeutic range: 66.0 - 100.0 seconds. Range based on correlation with therapeutic heparin activity range of 0.3 - 0.7 Units/mL. Current interpretive data was last revised on 2023. D-Dimer 13,588(H) <=499 ng/mL FEU [facility] Comment: Specimen not clotted and filled properly [...] 2019. Fibrinogen 775(H) 170 - 400 mg/dL [facility] Blood 09/18/2024 4:20 AM CANDY WAFFLE ASSEMBLER 09/18/2024 4:21 AM CANDY WAFFLE ASSEMBLER Somo DO LAB BLOOD ORDERABLES F inal Result Performing Organization Address [facility] Co de Phone Number [facility] [address] [facility] [employer] [place], [place] [id number] * (ABNORMAL) POCT glucose (09/17/2024 11:57 PM CANDY WAFFLE ASSEMBLER) Glucose, POC 263(H) 70 - 199 mg/dL Comment: For Glucose values <35 mg/dl when Hematocrit is >60 mg/dl,the test may not accurately detect significant hypoglycemia,and testing in the Laboratory should be considered if clinically indicated. Blood 09/17/2024 11:5 7 PM CANDY WAFFLE ASSEMBLER 09/17/2024 11:57 PM CANDY WAFFLE ASSEMBLER Elidamartha Vigil DO LAB POCT ORDERABLES - DEVICE Final Result Performing Organization Address [facility] Co de Phone Number [facility] [address] [facility] [place] [place] [address] * (ABNORMAL) POCT glucose (09/17/2024 8:02 PM CANDY WAFFLE ASSEMBLER) Glucose, POC 291(H) 70 - 199 mg/dL Comment: For Glucose values <35 mg/dl when Hematocrit is >60 mg/dl,the test may not accurately detect significant hypoglycemia,and testing in the Laboratory should be considered if clinically indicated. Blood 09/17/2024 8:02 PM CANDY WAFFLE ASSEMBLER 09/17/2024 8:02 PM CANDY WAFFLE ASSEMBLER Elida Vigil [employer] LAB POCT ORDERABLES - DEVICE Final Result Performing Organization Address [facility] Co de Phone Number [facility] [address] [facility] [place] [address] * (ABNORMAL) POCT glucose (09/17/2024 4:21 PM CANDY WAFFLE ASSEMBLER) Pathologist [facility] Glucose, POC 283(H) 70 - 199 mg/dL Comment: For Glucose values <35 mg/dl when Hematocrit is >60 mg/dl,the test may not accurately detect significant hypoglycemia,and testing in the Laboratory should be considered if clinically indicated. Blood 09/17/2024 4:21 PM CANDY WAFFLE ASSEMBLER 09/17/2024 4:21 PM CANDY WAFFLE ASSEMBLER Elida Vigil LAB POCT ORDERABLES - DEVICE Final Result Performing Organization Address [facility] de Phone Number [facility] [address] [place] [employer] [place] [address] * (ABNORMAL) eGFR (09/17/2024 2:52 PM CANDY WAFFLE ASSEMBLER) [facility] eGFR 34(L) >=60 mL/min/1. 73 m2 Comment: [...] last reviewed 2021. Blood 09/17/2024 2:52 PM CANDY WAFFLE ASSEMBLER 09/17/2024 2:57 PM CANDY WAFFLE ASSEMBLER Elida Vigil DO LAB BLOOD ORDERABLES F inal Result [facility] [address] [place] [address] * (ABNORMAL) Renal function panel (09/17/2024 2:52 PM CANDY WAFFLE ASSEMBLER) Sodium 143 135 - 145 mmol/L Potassium, pl 3.6 3.3 - 4.9 mmol/L [facility] Chloride 110 97 - 110 mmol/L [facility] CO2 21(L) 22 - 32 mmol/L [facility] Anion gap 12 2 - 15 mmol/L [facility] BUN 41(H) 6 - 25 mg/dL [facility] Creatinine 1.82(H) 0.60 - 1.10 mg/dL [facility] Glucose 290(H) 70 - 199 mg/dL [facility] Comment: Interpretive Data Fasting glucose >/= 126 [...] 2022. Calcium 7.9(L) 8.5 - 10.3 mg/dL [facility] Phosphorus, pl 5.0(H) 2.3 - 4.5 mg/dL [facility] Comment:Reviewed Albumin 2.4(L) 3.5 - 5.0 g/dL [facility] Blood 09/17/2024 2:52 PM CANDY WAFFLE ASSEMBLER 09/17/2024 2:57 PM CANDY WAFFLE ASSEMBLER us Elida [employer] DO LAB BLOOD ORDERABLES F inal Result Performing Organization Address [facility] Co de Phone Number [facility] [address] [facility] [place] [place] [address] * (ABNORMAL) POCT glucose (09/17/2024 12:23 PM CANDY WAFFLE ASSEMBLER) Glucose, POC 278(H) 70 - 199 mg/dL Comment: For Glucose values <35 mg/dl when Hematocrit is >60 mg/dl,the test may not accurately detect significant hypoglycemia,and testing in the Laboratory should be considered if clinically indicated. Blood 09/17/2024 12:2 3 PM CANDY WAFFLE ASSEMBLER 09/17/2024 12:23 PM CANDY WAFFLE ASSEMBLER Elida Verahenok LAB POCT ORDERABLES - DEVICE Final Result Performing Organization Address [facility] Co de Phone Number [facility] [address] [facility] [place] [address] * (ABNORMAL) POCT glucose (09/17/2024 7:09 AM CANDY WAFFLE ASSEMBLER) Glucose, POC 294(H) 70 - 199 mg/dL Comment: For Glucose values <35 mg/dl when Hematocrit is >60 mg/dl,the test may not accurately detect significant hypoglycemia,and testing in the Laboratory should be considered if clinically indicated. Blood 09/17/2024 7:09 AM CANDY WAFFLE ASSEMBLER 09/17/2024 7:09 AM CANDY WAFFLE ASSEMBLER Elida Verahenok DO LAB POCT ORDERABLES - DEVICE Final Result Performing Organization Address [facility] Co de Phone Number [facility] [address] [facility] [place] [place] [address] * (ABNORMAL) POCT glucose (09/17/2024 4:42 AM CANDY WAFFLE ASSEMBLER) Glucose, POC 300(H) 70 - 199 mg/dL Comment: For Glucose values <35 mg/dl when Hematocrit is >60 mg/dl,the test may not accurately detect significant hypoglycemia,and testing in the Laboratory should be considered if clinically indicated. Blood 09/17/2024 4:42 AM CANDY WAFFLE ASSEMBLER 09/17/2024 4:42 AM CANDY WAFFLE ASSEMBLER Elida Vigil DO LAB POCT ORDERABLES - DEVICE Final Result Performing Organization Address [facility] Co de Phone Number [facility] [address] [place] [address] * (ABNORMAL) eGFR (09/17/2024 4:10 AM CANDY WAFFLE ASSEMBLER) eGFR 36(L) >=60 mL/min/1. 73 m2 Comment: [...] last reviewed 2021. Blood 09/17/2024 4:10 AM CANDY WAFFLE ASSEMBLER 09/17/2024 4:10 AM CANDY WAFFLE ASSEMBLER Elida Vigil DO LAB BLOOD ORDERABLES F inal Result Performing Organization Address [facility]/ZIP Co de Phone Number [facility] [address] Department [employer] [place], [place] [id number] * Thyroid Function [place] (09/17/2024 4:10 AM CANDY WAFFLE ASSEMBLER) [facility] TSH 1.79 0.30 - 4.20 mcIUnit/mL Blood 09/17/2024 4:10 AM CANDY WAFFLE ASSEMBLER 09/17/2024 4:10 AM CANDY WAFFLE ASSEMBLER Elida [facility] BLOOD ORDERABLES F inal Result Performing Organization Address [facility] de Phone Number [facility] [address] [place] [place] [address] * (ABNORMAL) CBC with auto differential (09/17/2024 4:10 AM CANDY WAFFLE ASSEMBLER) [facility] WBC 7.1 3.8 - 9.9 K/cumm Hgb 8.7(L) 11.9 - 15.5 g/dL [facility] Hct 27.4(L) 35.6 - 45.5 % [facility] Plt 93(L) 150 - 400 K/cumm [facility] MPV 12.8(H) 9.1 - 12.3 fL [facility] RBC 3.03(L) 3.90 - 5.20 M/cumm [facility] MCV 90.4 81.3 - 96.4 fL [facility] MCH 28.7 27.1 - 33.3 pg [facility] MCHC 31.8(L) 32.3 - 35.7 g/dL [facility] RDW CV 14.6 11.1 - 14.9 % [facility] RDW SD 48.9(H) 35.7 - 48.1 fL [facility] NRBC abs 0.00 0.00 - 0.01 K/cumm [facility] Blood 09/17/2024 4:10 AM CANDY WAFFLE ASSEMBLER 09/17/2024 4:10 AM CANDY WAFFLE ASSEMBLER Elida [employer] LAB BLOOD ORDERABLES F inal Result Performing Organization Address [facility] Co de Phone Number [facility] [address] [facility] [employer] [place], [place] [id number] * (ABNORMAL) Manual Differential (09/17/2024 4:10 AM CANDY WAFFLE ASSEMBLER) Differential Manual Cells Counted 120 [facility] Neutrophil abs 5.9 1.5 - 6.5 K/cumm [facility] Imm gran abs 0.2(H) 0.0 - 0.1 K/cumm [facility] Lymphocyte abs 0.6(L) 0.8 - 3.3 K/cumm [facility] Monocyte abs 0.4 0.2 - 0.8 K/cumm [facility] Eosinophil abs 0.1 0.0 - 0.5 K/cumm [facility] Basophil abs 0.1 0.0 - 0.1 K/cumm [facility] Neutrophil pct 82.6 % [facility] Comment: Interpretive Data Percent cell count reference ranges are not reported, since discordance with absolute values may lead to misinterpretation of CBC data. Current Interpretive Data was last revised on 2017. Lymphocyte pct 8.3 % [facility] Comment: Interpretive Data Percent cell count reference ranges are not reported, since discordance with absolute values may lead to misinterpretation of CBC data. Current Interpretive Data was last revised on 2017. Monocyte pct 5.0 % [facility] Comment: Interpretive Data Percent cell count reference ranges are not reported, since discordance with absolute values may lead to misinterpretation of CBC data. Current Interpretive Data was last revised on 2017. Eosinophil pct 0.8 % [facility] Comment: Interpretive Data Percent cell count reference ranges are not reported, since discordance with absolute values may lead to misinterpretation of CBC data. Current Interpretive Data was last revised on 2017. Basophil pct 0.8 % [facility] Comment: Interpretive Data Percent cell count reference ranges are not reported, since discordance with absolute values may lead to misinterpretation of CBC data. Current Interpretive Data was last revised on 2017. Myelocyte pct 0.8(H) 0.0 - 0.0 % [facility] Promyelocyte pct 1.7(H) 0.0 - 0.0 % [facility] RBC morphology Present(A) [facility] Anisocytosis Slight(A) [facility] Morphology scrn See Comment [facility] Comment:PLT: Platelet morpho logy normal Blood 09/17/2024 4:10 AM [employer]Y WAFFLE ASSEMBLER 09/17/2024 4:10 AM [employer]Y WAFFLE ASSEMBLER Elida Vigil DO LAB BLOOD ORDERABLES F inal Result Performing Organization Address [facility] Co de Phone Number [facility] [address] [facility] [place] [address] * (ABNORMAL) Phosphorus (09/17/2024 4:10 AM CANDY WAFFLE ASSEMBLER) Phosphorus, pl 2.2(L) 2.3 - 4.5 mg/dL Blood 09/17/2024 4:10 AM [employer] WA[employer]LE [employer]SEMBLER 09/17/2024 4:10 AM [employer] WA[employer]LE ASSEMBLER Elida Vigil LAB BLOOD ORDERABLES F inal Result Performing Organization Address [facility] Co de Phone Number [facility] [address] [place] [address] * Magnesium (09/17/2024 4:10 AM C[employer]Y WAFFLE ASSEMBLER) Magnesium 2.3 1.4 - 2.5 mg/dL Blood 09/17/2024 4:10 AM [employer] WAFFLE ASSEMBLER 09/17/2024 4:10 AM [employer] WAFFLE ASSEMBLER Elida Vigil LAB BLOOD ORDERABLES F inal Result Performing Organization Address [facility] Co de Phone Number [facility] [address] [facility] [place] [address] * (ABNORMAL) Haptoglobin (09/17/2024 4:10 AM C[employer]Y WAFFLE ASSEMBLER) Haptoglobin 408(H) 30 - 200 mg/dL Blood 09/17/2024 4:10 AM [employer]Y WAFFLE ASSEMBLER 09/17/2024 4:10 AM [employer]Y WAFFLE ASSEMBLER us Elida Schumacher Musa DO LAB BLOOD ORDERABLES F inal Result [facility] [address] Department [place] [address] * (ABNORMAL) Comprehensive metabolic panel (09/17/2024 4:10 AM CANDY WAFFLE ASSEMBLER) Sodium 143 135 - 145 mmol/L Potassium, pl 2.8(L) 3.3 - 4.9 mmol/L [facility] Chloride 109 97 - 110 mmol/L [facility] CO2 21(L) 22 - 32 mmol/L [facility] Anion gap 13 2 - 15 mmol/L [facility] BUN 43(H) 6 - 25 mg/dL [facility] Creatinine 1.71(H) 0.60 - 1.10 mg/dL [facility] Glucose 288(H) 70 - 199 mg/dL [facility] Comment: Interpretive Data Fasting glucose >/= 126 [...] 2022. Calcium 7.9(L) 8.5 - 10.3 mg/dL [facility] Bilirubin, total 0.3 0.1 - 1.2 mg/dL [facility] Protein, pl 5.5(L) 6.5 - 8.5 g/dL [facility] Albumin 2.2(L) 3.5 - 5.0 g/dL [facility] Alk phos 115 40 - 130 Units/L [facility] ALT 18 7 - 45 Units/L [facility] AST 23 10 - 45 Units/L [facility] Blood 09/17/2024 4:10 AM [employer] WAFFLE ASSEMBLER 09/17/2024 4:10 AM [employer] WA[employer]LE ASSEMBLER Elida Vigil DO LAB BLOOD ORDERABLES F inal Result [facility] [address] [place] [address] * XR Chest 1 View (09/17/2024 2:59 AM C[employer]Y WAFFLE ASSEMBLER) Anatomical Region Laterality Modality Body, Chest N/A Computed Radiogr aphy 09/17/2024 7:00 AM [employer] WA[employer]LE ASSEMBLER Impressions 09/17/2024 7:00 AM C[employer]Y WAFFLE ASSEMBLER Comparison chest radiograph 09/16/2024. Endotracheal tube terminates 4 cm above the jessenia. Gastric tube courses along the esophagus and terminates below the diaphragm outside the [id number]-[id number]. Small lung volumes. Similar-appearing patchy airspace opacity in left lower lung which may represent a pneumonia. Right lung is clear. No pleural effusion or pneumothorax. Heart size and mediastinal contours are stable. Electronically signed by: Teja Angeles MD, PHD Narrative 09/17/2024 7:00 AM [employer]Y WAFFLE ASSEMBLER EXAMINATION: XR CHEST 1 VIEW Procedure Note Teja Angeles MD PhD - 09/17/2024 EXAMINATION: XR CHEST 1 VIEW IMPRESSION: Comparison chest radiograph 09/16/2024. Endotracheal tube terminates 4 cm above the jessenia. Gastric tube courses along the esophagus and terminates below the diaphragm outside the sbeii-dz-arss. Small lung volumes. Similar-appearing patchy airspace opacity in left lower lung which may represent a pneumonia. Right lung is clear. No pleural effusion or pneumothorax. Heart size and mediastinal contours are stable. Electronically signed by: Teja Angeles MD, PHD Elida Vigil DO IMG XR PROCEDURES Salma l Result * (ABNORMAL) POCT glucose (09/16/2024 11:48 PM CANDY WAFFLE ASSEMBLER) [facility] Glucose, POC 288(H) 70 - 199 mg/dL Comment: For Glucose values <35 mg/dl when Hematocrit is >60 mg/dl,the test may not accurately detect significant hypoglycemia,and testing in the Laboratory should be considered if clinically indicated. Blood 09/16/2024 11:4 8 PM [employer]Y WAFFLE ASSEMBLER 09/16/2024 11:48 PM [employer]Y WAFFLE ASSEMBLER Elida Verahenok DO LAB POCT ORDERABLES - DEVICE Final Result Performing Organization Address [facility] Co de Phone Number [facility] [address] [facility] [place] [address] * (ABNORMAL) POCT glucose (09/16/2024 8:12 PM CANDY WAFFLE ASSEMBLER) Glucose, POC 265(H) 70 - 199 mg/dL Comment: For Glucose values <35 mg/dl when Hematocrit is >60 mg/dl,the test may not accurately detect significant hypoglycemia,and testing in the Laboratory should be considered if clinically indicated. Blood 09/16/2024 8:12 PM [employer] WAFFLE ASSEMBLER 09/16/2024 8:12 PM [employer]Y WAFFLE ASSEMBLER Elida Vigil DO LAB POCT ORDERABLES - DEVICE Final Result Performing Organization Address [facility] de Phone Number [facility] [address] [facility] [place] [address] * (ABNORMAL) POCT glucose (09/16/2024 4:04 PM CANDY WAFFLE ASSEMBLER) Glucose, POC 310(H) 70 - 199 mg/dL Comment: For Glucose values <35 mg/dl when Hematocrit is >60 mg/dl,the test may not accurately detect significant hypoglycemia,and testing in the Laboratory should be considered if clinically indicated. Blood 09/16/2024 4:04 PM CANDY WAFFLE ASSEMBLER 09/16/2024 4:04 PM CANDY WAFFLE ASSEMBLER Elida Winsome Vigil DO LAB POCT ORDERABLES - DEVICE Final Result Performing Organization Address [facility] Co de Phone Number [facility] [address] [facility] [place] [address] * (ABNORMAL) POCT glucose (09/16/2024 12:27 PM CANDY WAFFLE ASSEMBLER) Glucose, POC 271(H) 70 - 199 mg/dL Comment: For Glucose values <35 mg/dl when Hematocrit is >60 mg/dl,the test may not accurately detect significant hypoglycemia,and testing in the Laboratory should be considered if clinically indicated. Blood 09/16/2024 12:2 7 PM [employer]Y WAFFLE ASSEMBLER 09/16/2024 12:27 PM CANDY WAFFLE ASSEMBLER us Elidaflorence Gusmanrice Musa DO LAB POCT ORDERABLES - DEVICE Final Result [facility] [address] Department [place] [address] * US Vein Duplex Lower Extremity Bilateral Complete (09/16/2024 11:24 AM CANDY WAFFLE ASSEMBLER) Anatomical Region Laterality Modality Vascular Bilateral Ultrasound 09/16/2024 3:48 PM C[employer]Y WAFFLE ASSEMBLER Impressions 09/16/2024 3:48 PM C[employer]Y WAFFLE ASSEMBLER 1. This study does not demonstrate evidence of deep vein thrombosis in the right lower extremity. None 2. This study does not demonstrate evidence of deep vein thrombosis in the left lower extremity. None 3. Note: Small isolated thrombi may be difficult to visualize, especially in the calf veins. Electronically signed by: Kwaku Tolentino M.D. Narrative 09/16/2024 3:48 PM CANDY WAFFLE ASSEMBLER Lower Extremity Vein Duplex Bilateral DATE: 09/16/2024 [...] by: Kwaku Tolentino M.D. Flo Villagran MD [facility] US PROCEDURES Final Resu lt * WA INSJ NON-TUNNELED CENTRAL VENOUS CATH AGE 4 YR/> (09/16/2024 8:53 AM CANDY WAFFLE ASSEMBLER) Narrative Hugh Shanks PA - 09/16/2024 8:53 AM CANDY WAFFLE ASSEMBLER Hugh Shanks PA 09/16/2024 8:54 AM Midline Date/Time: 09/16/2024 8:53 AM Performed by: Hugh Shanks PA Authorized by: Hugh Shanks PA [place] Protocol: RN Notified of Procedure: yes Informed consent: Risks, benefits, alternatives discussed and patient/event marketing representative/guardian agrees and accepts Patient's stated name/ [...] * Blood culture Blood (09/16/2024 8:53 AM CANDY WAFFLE ASSEMBLER) Report Final Report: No growth Blood 09/16/2024 8:53 AM CANDY WAFFLE ASSEMBLER 09/16/2024 8:56 AM CANDY WAFFLE ASSEMBLER William [facility] - 09/21/2024 1:01 PM CANDY WAFFLE ASSEMBLER From a different site than #1. Interpretive [...] organism identification may be performed using the [employer] Blood Culture Identification panel. This assay detects microbial DNA in a blood culture broth. This assay has been cleared by the [facility] Food and Drug Administration and its performance characteristics have been verified by the [facility]. Interpretive data was last revised on September 11, 2022. [facility] Winsome [facility] MICROBIOLOGY - GEN ERAL ORDERABLES Final Result Performing Organization Address [facility] Co de Phone Number [facility] [address] [place] [address] * Blood culture Blood (09/16/2024 8:45 AM CANDY WAFFLE ASSEMBLER) Report Final Report: No growth Blood 09/16/2024 8:45 AM CANDY WAFFLE ASSEMBLER 09/16/2024 8:56 AM CANDY WAFFLE ASSEMBLER Narrative [facility] - 09/21/2024 1:01 PM CANDY WAFFLE ASSEMBLER Interpretive Data 1. Blood cultures are incubated and monitored continuously for 5 days (120 hours). The first negative report is issued within 24 hours of receipt in the laboratory. 2. All positive cultures are resulted and called to physicians/care providers as soon as they are detected. 3. A rapid molecular test for organism identification may be performed using the [employer] Blood Culture Identification panel. This assay detects microbial DNA in a blood culture broth. This assay has been cleared by the [facility] Food and Drug Administration and its performance characteristics have been verified by the [facility]. Interpretive data was last revised on September 11, 2022. [facility] Schumacher [facility] MICROBIOLOGY - GEN ERAL ORDERABLES Final Result Performing Organization Address [facility] Co de Phone Number [facility] [address] [place] [address] * (ABNORMAL) POCT glucose (09/16/2024 7:33 AM CANDY WAFFLE ASSEMBLER) Glucose, POC 232(H) 70 - 199 mg/dL Comment: For Glucose values <35 mg/dl when Hematocrit is >60 mg/dl,the test may not accurately detect significant hypoglycemia,and testing in the Laboratory should be considered if clinically indicated. Blood 09/16/2024 7:33 AM CANDY WAFFLE ASSEMBLER 09/16/2024 7:33 AM CANDY WAFFLE ASSEMBLER Flo Villagran MD LAB POCT ORDERABLES - DEVICE Final Result Performing Organization Address [facility] de Phone Number [facility] [address] [employer] [place], [place] [id number] * (ABNORMAL) CBC with auto differential (09/16/2024 5:30 AM CANDY WAFFLE ASSEMBLER) [facility] WBC 5.4 3.8 - 9.9 K/cumm Hgb 8.6(L) 11.9 - 15.5 g/dL [facility] Hct 28.2(L) 35.6 - 45.5 % [facility] Plt 81(L) 150 - 400 K/cumm [facility] MPV 13.9(H) 9.1 - 12.3 fL [facility] RBC 3.01(L) 3.90 - 5.20 M/cumm [facility] MCV 93.7 81.3 - 96.4 fL [facility] MCH 28.6 27.1 - 33.3 pg [facility] MCHC 30.5(L) 32.3 - 35.7 g/dL [facility] RDW CV 14.9 11.1 - 14.9 % [facility] RDW SD 51.3(H) 35.7 - 48.1 fL [facility] NRBC abs 0.00 0.00 - 0.01 K/cumm [facility] Blood 09/16/2024 5:30 AM CANDY WAFFLE ASSEMBLER 09/16/2024 5:39 AM CANDY WAFFLE ASSEMBLER Flo Villagran MD LAB BLOOD ORDERABLES Final R esult Performing Organization Address [facility]/ZIP Co de Phone Number [facility] [address] [facility] [place] [place] [address] * (ABNORMAL) Manual Differential (09/16/2024 5:30 AM CANDY WAFFLE ASSEMBLER) [facility] Differential Manual Cells Counted 116 [facility] Neutrophil abs 4.4 1.5 - 6.5 K/cumm [facility] Imm gran abs 0.0 0.0 - 0.1 K/cumm [facility] Lymphocyte abs 0.6(L) 0.8 - 3.3 K/cumm [facility] Monocyte abs 0.3 0.2 - 0.8 K/cumm [facility] Eosinophil abs 0.0 0.0 - 0.5 K/cumm [facility] Neutrophil pct 81.0 % [facility] Comment: Interpretive Data Percent cell count reference ranges are not reported, since discordance with absolute values may lead to misinterpretation of CBC data. Current Interpretive Data was last revised on 2017. Lymphocyte pct 12.1 % [facility] Comment: Interpretive Data Percent cell count reference ranges are not reported, since discordance with absolute values may lead to misinterpretation of CBC data. Current Interpretive Data was last revised on 2017. Monocyte pct 6.0 % [facility] Comment: Interpretive Data Percent cell count reference ranges are not reported, since discordance with absolute values may lead to misinterpretation of CBC data. Current Interpretive Data was last revised on 2017. Eosinophil pct 0.9 % [facility] Comment: Interpretive Data Percent cell count reference ranges are not reported, since discordance with absolute values may lead to misinterpretation of CBC data. Current Interpretive Data was last revised on 2017. RBC morphology Present(A) [facility] Hypochromasia 3-7/HPF(A) [facility] Anisocytosis Slight(A) [facility] Microcytes 3-7/HPF(A) [facility] Morphology scrn See Comment [facility] Comment:PLT: Giant platelets present Blood 09/16/2024 5:30 AM CANDY WAFFLE ASSEMBLER 09/16/2024 5:39 AM CANDY WAFFLE ASSEMBLER us Flo Villagran MD LAB BLOOD ORDERABLES Final R esult [facility] [address] Department [place] [place] [address] * POCT glucose (09/16/2024 5:23 AM CANDY WAFFLE ASSEMBLER) Glucose, POC 178 70 - 199 mg/dL Comment: For Glucose values <35 mg/dl when Hematocrit is >60 mg/dl,the test may not accurately detect significant hypoglycemia,and testing in the Laboratory should be considered if clinically indicated. Blood 09/16/2024 5:23 AM CANDY WAFFLE ASSEMBLER 09/16/2024 5:23 AM CANDY WAFFLE ASSEMBLER Flo Villagran MD LAB POCT ORDERABLES - DEVICE Final Result [facility] [address] Department [place] [address] * X-ray chest 1 view (09/16/2024 4:37 AM CANDY WAFFLE ASSEMBLER) Anatomical Region Laterality Modality Body, Chest N/A Computed Radiogr aphy 09/16/2024 7:29 AM CANDY WAFFLE ASSEMBLER Impressions 09/16/2024 7:29 AM CANDY WAFFLE ASSEMBLER Endotracheal tube with tip approximately 3.6 cm superior to jessenia. Gastric tube extends inferior to the rkcgz-um-vnrq the study, below the GE junction. There are heterogeneous left mid lung and bibasilar lung opacities appear not significantly changed from prior. There is no pneumothorax or definite pleural effusion. Heart and mediastinum are unchanged. Electronically signed by: Abeba Castellano M.D. Narrative 09/16/2024 7:29 AM CANDY WAFFLE ASSEMBLER EXAMINATION: 1 view chest radiograph COMPARISON: 09/15/2024 INDICATION: ET Tube For endotracheal tube position Procedure Note Abeba Castellano MD - 09/16/2024 EXAMINATION: 1 view chest radiograph COMPARISON: 09/15/2024 INDICATION: ET Tube For endotracheal tube position IMPRESSION: Endotracheal tube with tip approximately 3.6 cm superior to jessenia. Gastric tube extends inferior to the hhuhp-bh-eguq the study, below the GE junction. There are heterogeneous left mid lung and bibasilar lung opacities appear not significantly changed from prior. There is no pneumothorax or definite pleural effusion. Heart and mediastinum are unchanged. Electronically signed by: Abeba Castellano M.D. us Flo Villagran MD IMG XR PROCEDURES Final Resu lt * (ABNORMAL) eGFR (09/16/2024 4:05 AM CANDY WAFFLE ASSEMBLER) eGFR 33(L) >=60 mL/min/1. 73 m2 Comment: [...] last reviewed 2021. Blood 09/16/2024 4:05 AM CANDY WAFFLE ASSEMBLER 09/16/2024 4:12 AM CANDY WAFFLE ASSEMBLER Flo Villagran MD LAB BLOOD ORDERABLES Final R esult [facility] [address] Department [place] [address] * Blood culture Blood (09/16/2024 4:05 AM CANDY WAFFLE ASSEMBLER) Report Final Report: No growth Blood 09/16/2024 4:05 AM CANDY WAFFLE ASSEMBLER 09/16/2024 4:38 AM CANDY WAFFLE ASSEMBLER Narrative [facility] - 09/21/2024 7:01 AM CANDY WAFFLE ASSEMBLER Interpretive Data 1. Blood cultures are incubated and monitored continuously for 5 days (120 hours). The first negative report is issued within 24 hours of receipt in the laboratory. 2. All positive cultures are resulted and called to physicians/care providers as soon as they are detected. 3. A rapid molecular test for organism identification may be performed using the [employer] Blood Culture Identification panel. This assay detects microbial DNA in a blood culture broth. This assay has been cleared by the [place] Food and Drug Administration and its performance characteristics have been verified by the [facility]. Interpretive data was last revised on September 11, 2022. Flo Villagran MD LAB MICROBIOLOGY - GENERAL O RDERABLES Final Result Performing Organization Address [facility] Co de Phone Number [facility] [address] [place] [address] * (ABNORMAL) Triglycerides (09/16/2024 4:05 AM CANDY WAFFLE ASSEMBLER) Triglycerides 876(H) <=149 mg/dL Comment: Interpretive Data [...] revised on 2018. Blood 09/16/2024 4:05 AM CANDY WAFFLE ASSEMBLER 09/16/2024 4:05 AM CANDY WAFFLE ASSEMBLER Flo Villagran MD LAB BLOOD ORDERABLES Final R esult Performing Organization Address [facility] Co de Phone Number [facility] [address] [employer] [place], [place] [id number] * Magnesium (09/16/2024 4:05 AM CANDY WAFFLE ASSEMBLER) Pathologist [facility] Magnesium 2.2 1.4 - 2.5 mg/dL Blood 09/16/2024 4:05 AM CANDY WAFFLE ASSEMBLER 09/16/2024 4:12 AM CANDY WAFFLE ASSEMBLER us Flo Villagran MD LAB BLOOD ORDERABLES Final R esult [facility] [address] Department [place] [address] * (ABNORMAL) Renal function panel (09/16/2024 4:05 AM CANDY WAFFLE ASSEMBLER) [facility] Sodium 139 135 - 145 mmol/L Potassium, pl 3.3 3.3 - 4.9 mmol/L [facility] Chloride 107 97 - 110 mmol/L [facility] CO2 19(L) 22 - 32 mmol/L [facility] Anion gap 13 2 - 15 mmol/L [facility] BUN 47(H) 6 - 25 mg/dL [facility] Creatinine 1.85(H) 0.60 - 1.10 mg/dL [facility] Glucose 137 70 - 199 mg/dL [facility] Comment: Interpretive Data Fasting glucose >/= 126 [...] 2022. Calcium 7.8(L) 8.5 - 10.3 mg/dL [facility] Phosphorus, pl 2.8 2.3 - 4.5 mg/dL [facility] Albumin 2.0(L) 3.5 - 5.0 g/dL [facility] Blood 09/16/2024 4:05 AM CANDY WAFFLE ASSEMBLER 09/16/2024 4:12 AM CANDY WAFFLE ASSEMBLER Flo Villagran MD LAB BLOOD ORDERABLES Final R esult Performing Organization Address [facility] Co de Phone Number [facility] [address] Department [place] [place] [address] * POCT glucose (09/16/2024 3:45 AM CANDY WAFFLE ASSEMBLER) [facility] Signature Glucose, POC 137 70 - 199 mg/dL Comment: For Glucose values <35 mg/dl when Hematocrit is >60 mg/dl,the test may not accurately detect significant hypoglycemia,and testing in the Laboratory should be considered if clinically indicated. Blood 09/16/2024 3:45 AM CANDY WAFFLE ASSEMBLER 09/16/2024 3:45 AM CANDY WAFFLE ASSEMBLER Flo Villagran MD LAB POCT ORDERABLES - DEVICE Final Result Performing Organization Address [facility] de Phone Number [facility] [address] Department [place] [address] * MRI Brain WO Contrast (09/16/2024 1:48 AM CANDY WAFFLE ASSEMBLER) Anatomical Region Laterality Modality Head and Neck N/A Magnetic Resonan ce 09/15/2024 10:4 0 PM CANDY WAFFLE ASSEMBLER Impressions 09/16/2024 12:11 PM CANDY WAFFLE ASSEMBLER No acute intracranial abnormality seen given motion limitations. For the purposes of customer quality engineer, this study was initially interpreted by teleradiology. There is no significant discrepancy. Dictated by: Hugh Zelaya M.D. The radiology attending physician has personally reviewed this study, and had reviewed and/or edited this written report and agrees with it. Electronically signed by: Matthew Alonso MD, PHD Narrative 09/16/2024 12:11 PM CANDY WAFFLE ASSEMBLER EXAMINATION: Magnetic resonance imaging (MRI) of the [...] given motion limitations. For the purposes of customer quality engineer, this study was initially interpreted by teleradiology. There is no significant discrepancy. Dictated by: Hugh Zelaya M.D. The radiology attending physician has personally reviewed this study, and had reviewed and/or edited this written report and agrees with it. Electronically signed by: Matthew Alonso MD, PHD Flo Villagran MD IMG MRI PROCEDURES Final Res ult * POCT glucose (09/16/2024 1:06 AM CANDY WAFFLE ASSEMBLER) Glucose, POC 156 70 - 199 mg/dL Comment: For Glucose values <35 mg/dl when Hematocrit is >60 mg/dl,the test may not accurately detect significant hypoglycemia,and testing in the Laboratory should be considered if clinically indicated. Blood 09/16/2024 1:06 AM [employer] WAFFLE ASSEMBLER 09/16/2024 1:06 AM [employer] WAFFLE ASSEMBLER Flo Villagran MD LAB POCT ORDERABLES - DEVICE Final Result Performing Organization Address [facility] Co de Phone Number [facility] [address] [facility] [place] [address] * POCT glucose (09/16/2024 12:01 AM C[employer] WAFFLE ASSEMBLER) Glucose, POC 155 70 - 199 mg/dL Comment: For Glucose values <35 mg/dl when Hematocrit is >60 mg/dl,the test may not accurately detect significant hypoglycemia,and testing in the Laboratory should be considered if clinically indicated. Blood 09/16/2024 12:0 1 AM [employer] WAFFLE ASSEMBLER 09/16/2024 12:01 AM [employer]ANDY WAFFLE ASSEMBLER Flo Villagran MD LAB POCT ORDERABLES - DEVICE Final Result Performing Organization Address [facility] Co de Phone Number [facility] [address] [facility] [place] [address] * POCT glucose (09/15/2024 9:09 PM C[employer]Y WAFFLE ASSEMBLER) Glucose, POC 166 70 - 199 mg/dL Comment: For Glucose values <35 mg/dl when Hematocrit is >60 mg/dl,the test may not accurately detect significant hypoglycemia,and testing in the Laboratory should be considered if clinically indicated. Blood 09/15/2024 9:09 PM [employer] WAFFLE ASSEMBLER 09/15/2024 9:09 PM [employer]Y WAFFLE ASSEMBLER Flo Villagran MD LAB POCT ORDERABLES - DEVICE Final Result Performing Organization Address [facility] Co de Phone Number [facility] [address] [facility] [place] [address] * POCT glucose (09/15/2024 7:41 PM CANDY WAFFLE ASSEMBLER) Glucose, POC 140 70 - 199 mg/dL Comment: For Glucose values <35 mg/dl when Hematocrit is >60 mg/dl,the test may not accurately detect significant hypoglycemia,and testing in the Laboratory should be considered if clinically indicated. Blood 09/15/2024 7:41 PM C[employer]Y WAFFLE ASSEMBLER 09/15/2024 7:41 PM CANDY WAFFLE ASSEMBLER Flo Villagran MD LAB POCT ORDERABLES - DEVICE Final Result Performing Organization Address [facility] de Phone Number [facility] [address] [facility] [place] [address] * POCT glucose (09/15/2024 5:12 PM CANDY WAFFLE ASSEMBLER) Glucose, POC 140 70 - 199 mg/dL Comment: For Glucose values <35 mg/dl when Hematocrit is >60 mg/dl,the test may not accurately detect significant hypoglycemia,and testing in the Laboratory should be considered if clinically indicated. Blood 09/15/2024 5:12 PM C[employer] WAFFLE ASSEMBLER 09/15/2024 5:12 PM CANDY WAFFLE ASSEMBLER Flo Villagran MD LAB POCT ORDERABLES - DEVICE Final Result Performing Organization Address [facility] Co de Phone Number [facility] [address] [facility] [place] [address] * POCT glucose (09/15/2024 3:05 PM CANDY WAFFLE ASSEMBLER) Glucose, POC 117 70 - 199 mg/dL Comment: For Glucose values <35 mg/dl when Hematocrit is >60 mg/dl,the test may not accurately detect significant hypoglycemia,and testing in the Laboratory should be considered if clinically indicated. Blood 09/15/2024 3:05 PM CANDY WAFFLE ASSEMBLER 09/15/2024 3:05 PM CANDY WAFFLE ASSEMBLER Flo Villagran MD LAB POCT ORDERABLES - DEVICE Final Result Performing Organization Address [facility] de Phone Number [facility] [address] [place] [address] * (ABNORMAL) Aerobic culture and gram stain Sputum Sputum (09/15/2024 1:57 PM CANDY WAFFLE ASSEMBLER) Direct Specimen Exam Stain: Moderate polymorphonuclear leukocytes seen. Many Gram Positive Cocci Report Final Report: Heavy growth of: Staphylococcus aureus, methicillin susceptible Light growth normal sukhdev (.) [facility] Organism STAPHYLOCOCCUS AUREUS, METHICILLIN SUSCEPTIBLE [facility] Sputum (Sputum) 09/15/2024 1 :57 PM CANDY WAFFLE ASSEMBLER 09/15/2024 2:10 PM CANDY WAFFLE ASSEMBLER Narrative Organism Antibiotic Method Susceptibility Staphylococcus aureus, methicillin susceptible Cefazolin (ROBERTO CARLOS) INTERPRETATION Susceptible Staphylococcus aureus, methicillin susceptible Clindamycin (ROBERTO CARLOS) INTERPRETATION Resistant Staphylococcus aureus, methicillin susceptible Erythromycin (ROEBRTO CARLOS) INTERPRETATION Resistant Staphylococcus aureus, methicillin susceptible Oxacillin (ROBERTO CARLOS) INTERPRETATION Susceptible Staphylococcus aureus, methicillin susceptible Tetracycline (ROBERTO CARLOS) INTERPRETATION Susceptible Staphylococcus aureus, methicillin susceptible Trimethoprim with Sulfamethoxazole (ROBERTO CARLOS) INTERPRETATION Susceptible Staphylococcus aureus, methicillin susceptible Vancomycin (ROBERTO CARLOS) INTERPRETATION 1 mcg/mL: Susceptible Flo Villagran MD LAB MICROBIOLOGY - GENERAL O RDERABLES Final Result Performing Organization Address [facility] Co de Phone Number [facility] [address] [place] [address] * TRANSESOPHAGEAL ECHO (DEMI) W DOPPLER/CF WO CONTRAST (09/15/2024 1:43 PM CANDY WAFFLE ASSEMBLER) LV EF 55-60 % CONS SCIMAGE Anatomical Region Laterality Modality Ultrasound 09/15/2024 12:4 5 PM CANDY WAFFLE ASSEMBLER Narrative 09/15/2024 5:05 PM CANDY WAFFLE ASSEMBLER [facility] [address] [place] [address] TRANSESOPHAGEAL ECHOCARDIOGRAM Patient Name: BROOKE MARSHALL : 1975 (48y 8m) Gender: F Study Date: 09/15/2024 12:45:30 PM Ht(Inch): 65 Wt(Lb): 202.01 BSA: 2.05 Tab Card Press Operator: Location: [address] Order Provider: NILSON DUBOSE BMI: 33.61 [...] intracardiac vegetation. Electronically Signed By: Nilson Dubose [facility] Card 09/15/2024 5:05:10 PM CANDY WAFFLE ASSEMBLER Procedure Note Nilson Dubose MD - 09/15/2024 [facility] [address] [place] [address] TRANSESOPHAGEAL ECHOCARDIOGRAM Patient Name: BROOKE MARSHALL : 1975 (48y 8m) Gender: F Study Date: 09/15/2024 12:45:30 PM Ht(Inch): 65 Wt(Lb): 202.01 BSA: 2.05 Tab Card Press Operator: Location: [id number] Order Provider: NILSON DUBOSE BMI: 33.61 BP: [...] intracardiac vegetation. Electronically Signed By: Nilson Dubose [facility] Card 09/15/2024 5:05:10 PM CANDY WAFFLE ASSEMBLER Nilson Dubose MD CV ECHO PROCEDURES Final Result * POCT glucose (09/15/2024 1:05 PM CANDY WAFFLE ASSEMBLER) [facility] Signature Glucose, POC 151 70 - 199 mg/dL Comment: For Glucose values <35 mg/dl when Hematocrit is >60 mg/dl,the test may not accurately detect significant hypoglycemia,and testing in the Laboratory should be considered if clinically indicated. Blood 09/15/2024 1:05 PM CANDY WAFFLE ASSEMBLER 09/15/2024 1:05 PM CANDY WAFFLE ASSEMBLER us Flo Villagran MD LAB POCT ORDERABLES - DEVICE Final Result [facility] [address] Department [place] [address] * X-ray chest 1 view (09/15/2024 11:41 AM CANDY WAFFLE ASSEMBLER) Anatomical Region Laterality Modality Body, Chest N/A Computed Radiogr aphy 09/15/2024 12:0 0 PM CANDY WAFFLE ASSEMBLER Addenda Addendum by Cira Mancilla MD on 09/15/2024 1:17 PM CANDY WAFFLE ASSEMBLER Communicated to Dr. Villagran who confirmed that the tube has been pulled back. Dr. Mancilla on 09/15/2024 at 1:15pm. Electronically signed by: Cira Mancilla M.D. Impressions 09/15/2024 12:00 PM CANDY WAFFLE ASSEMBLER FINDINGS and IMPRESSION: Endotracheal tube terminates in the right bronchus, recommend withdrawal by about 6 cm. Feeding tube courses below the imaged [id number], past the GE junction. Increased airspace opacities in the left lung and increased prominence of right upper perihilar airspace opacities may represent progressive pneumonia, to be correlated clinically. Electronically signed by: Cira Mancilla M.D. Narrative 09/15/2024 12:00 PM CANDY WAFFLE ASSEMBLER EXAMINATION: XR CHEST 1 VIEW COMPARISON: 09/15/2024 HISTORY: For endotracheal tube position Procedure Note Cira Mancilla MD - 09/15/2024 EXAMINATION: XR CHEST 1 VIEW COMPARISON: 09/15/2024 HISTORY: For endotracheal tube position IMPRESSION: FINDINGS and IMPRESSION: Endotracheal tube terminates in the right bronchus, recommend withdrawal by about 6 cm. Feeding tube courses below the imaged [id number], past the GE junction. Increased airspace opacities in the left lung and increased prominence of right upper perihilar airspace opacities may represent progressive pneumonia, to be correlated clinically. Electronically signed by: Cira Mancilla M.D. Flo Villagran MD IMG XR PROCEDURES Edited Res ult - Final * (ABNORMAL) Blood gas, arterial (09/15/2024 11:34 AM CANDY WAFFLE ASSEMBLER) pH, Art 7.32(L) 7.35 - 7.45 PCO2, Arterial 48(H) 35 - 45 mmHg [facility] PO2, Arterial 264(H) 83 - 108 mmHg [facility] HCO3 Art (Calculated) 25 20 - 30 mmol/L [facility] BE, art -2 mmol/L [facility] Comment: Interpretive Data No Reference Range Established Current Interpretive Data was last revised on 2017 O2 Sat Art (Calculated) 100(H) 94 - 98 % [facility] Blood 09/15/2024 11:3 4 AM CANDY WAFFLE ASSEMBLER 09/15/2024 11:36 AM CANDY WAFFLE ASSEMBLER us Flo Villagran MD LAB BLOOD ORDERABLES Final R esult Performing Organization Address [facility] Co de Phone Number [facility] [address] Department [employer] [place], [place] [id number] * POCT glucose (09/15/2024 11:07 AM CANDY WAFFLE ASSEMBLER) Pathologist [facility] Glucose, POC 183 70 - 199 mg/dL Comment: For Glucose values <35 mg/dl when Hematocrit is >60 mg/dl,the test may not accurately detect significant hypoglycemia,and testing in the Laboratory should be considered if clinically indicated. Blood 09/15/2024 11:0 7 AM CANDY WAFFLE ASSEMBLER 09/15/2024 11:07 AM CANDY WAFFLE ASSEMBLER us Flo Villagran MD LAB POCT ORDERABLES - DEVICE Final Result Performing Organization Address City/[facility] Co de Phone Number [facility] [address] [facility] [employer] [place], [place] [id number] * INTUBATION (09/15/2024 10:31 AM CANDY WAFFLE ASSEMBLER) Narrative Flo Villagran MD - 09/15/2024 10:31 AM CANDY WAFFLE ASSEMBLER Flo Villagran MD 09/15/2024 11:11 AM Intubation [...] * (ABNORMAL) POCT glucose (09/15/2024 9:16 AM CANDY WAFFLE ASSEMBLER) [facility] Glucose, POC 200(H) 70 - 199 mg/dL Comment: For Glucose values <35 mg/dl when Hematocrit is >60 mg/dl,the test may not accurately detect significant hypoglycemia,and testing in the Laboratory should be considered if clinically indicated. Blood 09/15/2024 9:16 AM CANDY WAFFLE ASSEMBLER 09/15/2024 9:16 AM CANDY WAFFLE ASSEMBLER Flo Villagran MD LAB POCT ORDERABLES - DEVICE Final Result Performing Organization Address [facility] de Phone Number [facility] [address] [place] [address] * POCT glucose (09/15/2024 7:06 AM CANDY WAFFLE ASSEMBLER) [facility] Glucose, POC 186 70 - 199 mg/dL Comment: For Glucose values <35 mg/dl when Hematocrit is >60 mg/dl,the test may not accurately detect significant hypoglycemia,and testing in the Laboratory should be considered if clinically indicated. Blood 09/15/2024 7:06 AM CANDY WAFFLE ASSEMBLER 09/15/2024 7:06 AM CANDY WAFFLE ASSEMBLER Flo Villagran MD LAB POCT ORDERABLES - DEVICE Final Result Performing Organization Address [facility] Co de Phone Number [facility] [address] Department [place] [address] * POCT glucose (09/15/2024 5:27 AM CANDY WAFFLE ASSEMBLER) Glucose, POC 187 70 - 199 mg/dL Comment: For Glucose values <35 mg/dl when Hematocrit is >60 mg/dl,the test may not accurately detect significant hypoglycemia,and testing in the Laboratory should be considered if clinically indicated. Blood 09/15/2024 5:27 AM CANDY WAFFLE ASSEMBLER 09/15/2024 5:27 AM CANDY WAFFLE ASSEMBLER Flo Villagran MD LAB POCT ORDERABLES - DEVICE Final Result Performing Organization Address [facility] de Phone Number [facility] [address] Department [place] [address] * POCT glucose (09/15/2024 3:51 AM CANDY WAFFLE ASSEMBLER) Glucose, POC 189 70 - 199 mg/dL Comment: For Glucose values <35 mg/dl when Hematocrit is >60 mg/dl,the test may not accurately detect significant hypoglycemia,and testing in the Laboratory should be considered if clinically indicated. Blood 09/15/2024 3:51 AM CANDY WAFFLE ASSEMBLER 09/15/2024 3:51 AM CANDY WAFFLE ASSEMBLER Flo Villagran MD LAB POCT ORDERABLES - DEVICE Final Result Performing Organization Address [facility] de Phone Number [facility] [address] [place] [address] * (ABNORMAL) aPTT (09/15/2024 3:48 AM CANDY WAFFLE ASSEMBLER) aPTT 49(H) 28 - 38 sec Comment: Interpretive Data Heparin therapeutic range: 66.0 - 100.0 seconds. Range based on correlation with therapeutic heparin activity range of 0.3 - 0.7 Units/mL. Current interpretive data was last revised on 2023. Blood 09/15/2024 3:48 AM CANDY WAFFLE ASSEMBLER 09/15/2024 3:52 AM CANDY WAFFLE ASSEMBLER Abeba Ash MD LAB BLOOD ORDERABLES Final R esult Performing Organization Address [facility]/ZIP Co de Phone Number [facility] [address] Department [place] [address] * XR Chest 1 View (09/15/2024 3:41 AM CANDY WAFFLE ASSEMBLER) Anatomical Region Laterality Modality Body, Chest N/A Computed Radiogr aphy 09/15/2024 7:33 AM CANDY WAFFLE ASSEMBLER Impressions 09/15/2024 7:33 AM CANDY WAFFLE ASSEMBLER Comparison is made to 09/14/2024. A nasogastric tube tip is located with diaphragm, not included [id number]. There is slightly improving aeration within the left midlung and lung base which may represent improving pneumonia. The right mid to upper lung there is a persistent area of nodular consolidation which is favored to be infectious as well. No pleural effusion. No pneumothorax. Stable heart size. Electronically signed by: Ruiz Coles M.D. Narrative 09/15/2024 7:33 AM CANDY WAFFLE ASSEMBLER Examination: Chest 1 view Procedure Note Ruiz Coles MD - 09/15/2024 Examination: Chest 1 view IMPRESSION: Comparison is made to 09/14/2024. A nasogastric tube tip is located with diaphragm, not included [id number]. There is slightly improving aeration within the [...] lt * (ABNORMAL) eGFR (09/15/2024 1:50 AM CANDY WAFFLE ASSEMBLER) eGFR 40(L) >=60 mL/min/1. 73 m2 Comment: [...] reviewed 2021. Blood 09/15/2024 1:5 0 AM CANDY WAFFLE ASSEMBLER 09/15/2024 2:27 AM CANDY WAFFLE ASSEMBLER us Flo Villagran MD LAB BLOOD ORDERABLES Final R esult [facility] [address] Department [place] [address] * (ABNORMAL) CBC without differential (09/15/2024 1:50 AM CANDY WAFFLE ASSEMBLER) WBC 5.0 3.8 - 9.9 K/cumm Hgb 9.9(L) 11.9 - 15.5 g/dL [facility] Hct 31.5(L) 35.6 - 45.5 % [facility] Plt 67(L) 150 - 400 K/cumm [facility] Comment:Automated count conf irmed by smear review. MPV 13.3(H) 9.1 - 12.3 fL [facility] RBC 3.39(L) 3.90 - 5.20 M/cumm [facility] MCV 92.9 81.3 - 96.4 fL [facility] MCH 29.2 27.1 - 33.3 pg [facility] MCHC 31.4(L) 32.3 - 35.7 g/dL [facility] RDW CV 15.0(H) 11.1 - 14.9 % [facility] RDW SD 51.5(H) 35.7 - 48.1 fL [facility] NRBC abs 0.00 0.00 - 0.01 K/cumm [facility] Blood 09/15/2024 1:50 AM CANDY WAFFLE ASSEMBLER 09/15/2024 2:27 AM CANDY WAFFLE ASSEMBLER Flo Villagran MD LAB BLOOD ORDERABLES Final R esult Performing Organization Address [facility] Co de Phone Number [facility] [address] [facility] [employer] [place], [place] [phone] * (ABNORMAL) Phosphorus (09/15/2024 1:50 AM CANDY WAFFLE ASSEMBLER) Phosphorus, pl 1.7(L) 2.3 - 4.5 mg/dL Blood 09/15/2024 1:50 AM CANDY WAFFLE ASSEMBLER 09/15/2024 2:27 AM CANDY WAFFLE ASSEMBLER Flo Villagran MD LAB BLOOD ORDERABLES Final R esult Performing Organization Address [facility] Co de Phone Number [facility] [address] Department of [employer] [place], [place] [id number] * Magnesium (09/15/2024 1:50 AM CANDY WAFFLE ASSEMBLER) Magnesium 2.4 1.4 - 2.5 mg/dL Comment:Reviewed Blood 09/15/2024 1:50 AM CANDY WAFFLE ASSEMBLER 09/15/2024 2:27 AM CANDY WAFFLE ASSEMBLER Flo Villagran MD LAB BLOOD ORDERABLES Final R esult Performing Organization Address [facility] Co de Phone Number [facility] [address] [facility] [employer] [place], [place] [id number] * Bilirubin, direct (09/15/2024 1:50 AM CANDY WAFFLE ASSEMBLER) Bilirubin, direct 0.3 0.1 - 0.3 mg/dL Blood 09/15/2024 1:50 AM CANDY WAFFLE ASSEMBLER 09/15/2024 2:27 AM CANDY WAFFLE ASSEMBLER us Flo Villagran MD LAB BLOOD ORDERABLES Final R esult [facility] [address] Department [place] [address] * (ABNORMAL) Comprehensive metabolic panel (09/15/2024 1:50 AM CANDY WAFFLE ASSEMBLER) Sodium 147(H) 135 - 145 mmol/L Potassium, pl 3.1(L) 3.3 - 4.9 mmol/L [facility] Chloride 110 97 - 110 mmol/L [facility] CO2 24 22 - 32 mmol/L [facility] Anion gap 13 2 - 15 mmol/L [facility] BUN 44(H) 6 - 25 mg/dL [facility] Creatinine 1.56(H) 0.60 - 1.10 mg/dL [facility] Glucose 179 70 - 199 mg/dL [facility] Comment: Interpretive Data Fasting glucose >/= 126 [...] 2022. Calcium 8.5 8.5 - 10.3 mg/dL [facility] Bilirubin, total 0.5 0.1 - 1.2 mg/dL [facility] Protein, pl 5.6(L) 6.5 - 8.5 g/dL [facility] Albumin 2.4(L) 3.5 - 5.0 g/dL [facility] Alk phos 77 40 - 130 Units/L [facility] ALT 23 7 - 45 Units/L [facility] AST 35 10 - 45 Units/L [facility] Blood 09/15/2024 1:50 AM CANDY WAFFLE ASSEMBLER 09/15/2024 2:27 AM CANDY WAFFLE ASSEMBLER Flo Villagran MD LAB BLOOD ORDERABLES Final R esult Performing Organization Address [facility] de Phone Number [facility] [address] [facility] [employer] [place], [place] [id number] * POCT glucose (09/15/2024 12:53 AM CANDY WAFFLE ASSEMBLER) Glucose, POC 166 70 - 199 mg/dL Comment: For Glucose values <35 mg/dl when Hematocrit is >60 mg/dl,the test may not accurately detect significant hypoglycemia,and testing in the Laboratory should be considered if clinically indicated. Blood 09/15/2024 12:5 3 AM CANDY WAFFLE ASSEMBLER 09/15/2024 12:53 AM CANDY WAFFLE ASSEMBLER Flo Villagran MD LAB POCT ORDERABLES - DEVICE Final Result Performing Organization Address [facility] de Phone Number [facility] [address] [facility] [employer] [place], [place] [phone] * POCT glucose (09/14/2024 11:15 PM CANDY WAFFLE ASSEMBLER) Glucose, POC 178 70 - 199 mg/dL Comment: For Glucose values <35 mg/dl when Hematocrit is >60 mg/dl,the test may not accurately detect significant hypoglycemia,and testing in the Laboratory should be considered if clinically indicated. Blood 09/14/2024 11:1 5 PM CANDY WAFFLE ASSEMBLER 09/14/2024 11:15 PM CANDY WAFFLE ASSEMBLER Flo Villagran MD LAB POCT ORDERABLES - DEVICE Final Result Performing Organization Address [facility] de Phone Number [facility] [address] [facility] [employer] [place], [place] [phone] * (ABNORMAL) aPTT (09/14/2024 9:19 PM CANDY WAFFLE ASSEMBLER) aPTT 57(H) 28 - 38 sec Comment: Interpretive Data Heparin therapeutic range: 66.0 - 100.0 seconds. Range based on correlation with therapeutic heparin activity range of 0.3 - 0.7 Units/mL. Current interpretive data was last revised on 2023. Blood 09/14/2024 9:19 PM CANDY WAFFLE ASSEMBLER 09/14/2024 9:19 PM CANDY WAFFLE ASSEMBLER Flo Villagran MD LAB BLOOD ORDERABLES Final R esult Performing Organization Address [facility] de Phone Number [facility] [address] [place] [address] * POCT glucose (09/14/2024 9:16 PM CANDY WAFFLE ASSEMBLER) Glucose, POC 162 70 - 199 mg/dL Comment: For Glucose values <35 mg/dl when Hematocrit is >60 mg/dl,the test may not accurately detect significant hypoglycemia,and testing in the Laboratory should be considered if clinically indicated. Blood 09/14/2024 9:16 PM CANDY WAFFLE ASSEMBLER 09/14/2024 9:16 PM CANDY WAFFLE ASSEMBLER Result [facility] Flo Villagran MD LAB POCT ORDERABLES - DEVICE Final Result Performing Organization Address [facility] de Phone Number [facility] [address] [place] [address] * POCT glucose (09/14/2024 7:20 PM CANDY WAFFLE ASSEMBLER) Glucose, POC 171 70 - 199 mg/dL Comment: For Glucose values <35 mg/dl when Hematocrit is >60 mg/dl,the test may not accurately detect significant hypoglycemia,and testing in the Laboratory should be considered if clinically indicated. Blood 09/14/2024 7:20 PM CANDY WAFFLE ASSEMBLER 09/14/2024 7:20 PM CANDY WAFFLE ASSEMBLER Flo Villagran MD LAB POCT ORDERABLES - DEVICE Final Result Performing Organization Address [facility] Co de Phone Number [facility] [address] [facility] [employer] [place], [place] [id number] * POCT glucose (09/14/2024 6:16 PM [employer]) Glucose, POC 183 70 - 199 mg/dL Comment: For Glucose values <35 mg/dl when Hematocrit is >60 mg/dl,the test may not accurately detect significant hypoglycemia,and testing in the Laboratory should be considered if clinically indicated. Blood 09/14/2024 6:16 PM [employer] 09/14/2024 6:16 PM [employer] Flo Villagran MD LAB POCT ORDERABLES - DEVICE Final Result Performing Organization Address [facility] Co de Phone Number [facility] [address] [facility] [place] [address] * POCT glucose (09/14/2024 4:55 PM [employer] WA[employer]SEM[employer]) Glucose, POC 186 70 - 199 mg/dL Comment: For Glucose values <35 mg/dl when Hematocrit is >60 mg/dl,the test may not accurately detect significant hypoglycemia,and testing in the Laboratory should be considered if clinically indicated. Blood 09/14/2024 4:55 PM [employer] 09/14/2024 4:55 PM [employer] Flo Villagran MD LAB POCT ORDERABLES - DEVICE Final Result Performing Organization Address [facility] Co de Phone Number [facility] [address] [facility] [place] [address] * POCT glucose (09/14/2024 4:10 PM [employer] WA[employer]SEMBLER) Glucose, POC 179 70 - 199 mg/dL Comment: For Glucose values <35 mg/dl when Hematocrit is >60 mg/dl,the test may not accurately detect significant hypoglycemia,and testing in the Laboratory should be considered if clinically indicated. Blood 09/14/2024 4:10 PM [employer] 09/14/2024 4:10 PM [employer] Flo Villagran MD LAB POCT ORDERABLES - DEVICE Final Result Performing Organization Address [facility] Co de Phone Number [facility] [address] [place] [address] * POCT glucose (09/14/2024 3:03 PM [employer] WA[employer]SEM[employer]) Glucose, POC 179 70 - 199 mg/dL Comment: For Glucose values <35 mg/dl when Hematocrit is >60 mg/dl,the test may not accurately detect significant hypoglycemia,and testing in the Laboratory should be considered if clinically indicated. Blood 09/14/2024 3:03 PM [employer] 09/14/2024 3:03 PM [employer] Flo Villagran MD LAB POCT ORDERABLES - DEVICE Final Result Performing Organization Address [facility] de Phone Number [facility] [address] Department [place] [address] * (ABNORMAL) eGFR (09/14/2024 1:05 PM [employer] WA[employer]SEM[employer]ER) [facility] eGFR 41(L) >=60 mL/min/1. 73 m2 Comment: [...] last reviewed 2021. Blood 09/14/2024 1:05 PM [employer] 09/14/2024 1:20 PM [employer] Flo Villagran MD LAB BLOOD ORDERABLES Final R esult Performing Organization Address [facility] de Phone Number [facility] [address] [facility] [place] [address] * (ABNORMAL) aPTT (09/14/2024 1:05 PM [employer] WA[employer] ASSEMBLER) Pathologist [facility] aPTT 112(H) 28 - 38 sec Comment: Interpretive Data Heparin therapeutic range: 66.0 - 100.0 seconds. Range based on correlation with therapeutic heparin activity range of 0.3 - 0.7 Units/mL. Current interpretive data was last revised on 2023. Blood 09/14/2024 1:05 PM [employer] WA[employer]SEM[employer]ER 09/14/2024 1:19 PM [employer] Flo Villagran MD LAB BLOOD ORDERABLES Final R esult Performing Organization Address [facility] de Phone Number [facility] [address] Department [place] [address] * (ABNORMAL) Renal function panel (09/14/2024 1:05 PM [employer] WA[employer]SEMBLER) [facility] Sodium 152(H) 135 - 145 mmol/L Potassium, pl 3.3 3.3 - 4.9 mmol/L [facility] Chloride 115(H) 97 - 110 mmol/L [facility] CO2 25 22 - 32 mmol/L [facility] Anion gap 12 2 - 15 mmol/L [facility] BUN 45(H) 6 - 25 mg/dL [facility] Creatinine 1.54(H) 0.60 - 1.10 mg/dL [facility] Glucose 177 70 - 199 mg/dL [facility] Comment: Interpretive Data Fasting glucose >/= 126 [...] 2022. Calcium 8.8 8.5 - 10.3 mg/dL [facility] Phosphorus, pl 2.6 2.3 - 4.5 mg/dL [facility] Albumin 2.5(L) 3.5 - 5.0 g/dL [facility] Blood 09/14/2024 1:05 PM [employer] WA[employer]SEMBLER 09/14/2024 1:20 PM [employer] Flo Villagran MD LAB BLOOD ORDERABLES Final R esult Performing Organization Address [facility] Co de Phone Number [facility] [address] Department [place] [address] * POCT glucose (09/14/2024 12:55 PM [employer] WA[employer]LE [employer]SEMBLER) Glucose, POC 168 70 - 199 mg/dL Comment: For Glucose values <35 mg/dl when Hematocrit is >60 mg/dl,the test may not accurately detect significant hypoglycemia,and testing in the Laboratory should be considered if clinically indicated. Blood 09/14/2024 12:5 5 PM [employer]ER 09/14/2024 12:55 PM [employer]ER Flo Villagran MD LAB POCT ORDERABLES - DEVICE Final Result Performing Organization Address [facility] Co de Phone Number [facility] [address] Department [place] [address] * POCT glucose (09/14/2024 12:01 PM C[employer] WAFFLE [employer]SEMBLER) Glucose, POC 170 70 - 199 mg/dL Comment: For Glucose values <35 mg/dl when Hematocrit is >60 mg/dl,the test may not accurately detect significant hypoglycemia,and testing in the Laboratory should be considered if clinically indicated. Blood 09/14/2024 12:0 1 PM [employer] WA[employer]LE [employer]SEMBLER 09/14/2024 12:01 PM [employer]SEMBLER Flo Villagran MD LAB POCT ORDERABLES - DEVICE Final Result Performing Organization Address [facility] de Phone Number [facility] [address] [place] [address] * POCT glucose (09/14/2024 11:05 AM C[employer] WA[employer]LE ASSEMBLER) Glucose, POC 188 70 - 199 mg/dL Comment: For Glucose values <35 mg/dl when Hematocrit is >60 mg/dl,the test may not accurately detect significant hypoglycemia,and testing in the Laboratory should be considered if clinically indicated. Blood 09/14/2024 11:0 5 AM [employer] WA[employer]LE ASSEMBLER 09/14/2024 11:05 AM [employer]ER Flo Villagran MD LAB POCT ORDERABLES - DEVICE Final Result Performing Organization Address [facility] de Phone Number [facility] [address] [facility] [place] [address] * POCT glucose (09/14/2024 10:04 AM C[employer] WAFFLE ASSEMBLER) Pathologist [facility] Glucose, POC 195 70 - 199 mg/dL Comment: For Glucose values <35 mg/dl when Hematocrit is >60 mg/dl,the test may not accurately detect significant hypoglycemia,and testing in the Laboratory should be considered if clinically indicated. Blood 09/14/2024 10:0 4 AM [employer] WAFFLE ASSEMBLER 09/14/2024 10:04 AM [employer] WA[employer]LE [employer]SEMBLER Flo Villagran MD LAB POCT ORDERABLES - DEVICE Final Result Performing Organization Address [facility] de Phone Number [facility] [address] Department [employer] [place], [place] [id number] * (ABNORMAL) Blood culture Blood (09/14/2024 9:42 AM C[employer] WAFFLE ASSEMBLER) [facility] Direct Specimen Exam Stain: Gram Positive Cocci in clusters Test result called to and read back by Ana Maria Grier RN on 09/15/2024 05:37:49 by [place]. Report Final Report: Staphylococcus aureus, methicillin susceptible Susceptibility reported on this organism on previous culture [id number] (.) [facility] Organism STAPHYLOCOCCUS AUREUS, METHICILLIN SUSCEPTIBLE [facility] Blood 09/14/2024 9:42 AM C[employer] WAFFLE ASSEMBLER 09/14/2024 9:50 AM [employer] WAFFLE ASSEMBLER Narrative [facility] - 09/16/2024 10:13 AM C[employer] WAFFLE ASSEMBLER From a different site than #1. Interpretive [...] organism identification may be performed using the [employer] Blood Culture Identification panel. This assay detects microbial DNA in a blood culture broth. This assay has been cleared by the [place] Food and Drug Administration and its performance characteristics have been verified by the [facility]. Interpretive data was last revised on September 11, 2022. Flo Villagran MD LAB MICROBIOLOGY - GENERAL O RDERABLES Final Result [facility] [address] Department [place] [address] * Blood culture Blood (09/14/2024 9:42 AM C[employer] WAFFLE ASSEMBLER) Report Final Report: No growth Blood 09/14/2024 9:42 AM [employer] WA[employer] ASSEMBLER 09/14/2024 12:44 PM [employer] WAFFLE ASSEMBLER Narrative [facility] - 09/19/2024 1:00 PM [employer] WA[employer]SEMBLER Interpretive Data 1. Blood cultures are incubated and monitored continuously for 5 days (120 hours). The first negative report is issued within 24 hours of receipt in the laboratory. 2. All positive cultures are resulted and called to physicians/care providers as soon as they are detected. 3. A rapid molecular test for organism identification may be performed using the [employer] Blood Culture Identification panel. This assay detects microbial DNA in a blood culture broth. This assay has been cleared by the [place] Food and Drug Administration and its performance characteristics have been verified by the [facility]. Interpretive data was last revised on September 11, 2022. Flo Villagran MD LAB MICROBIOLOGY - GENERAL O RDERABLES Final Result Performing Organization Address [facility] Co de Phone Number [facility] [address] [place] [address] * (ABNORMAL) POCT glucose (09/14/2024 8:56 AM CAND[employer] WAFFLE ASSEMBLER) Glucose, POC 228(H) 70 - 199 mg/dL Comment: For Glucose values <35 mg/dl when Hematocrit is >60 mg/dl,the test may not accurately detect significant hypoglycemia,and testing in the Laboratory should be considered if clinically indicated. Blood 09/14/2024 8:56 AM C[employer] WAFFLE ASSEMBLER 09/14/2024 8:56 AM CANDY WAFFLE ASSEMBLER Result [facility] Flo Villagran MD LAB POCT ORDERABLES - DEVICE Final Result Performing Organization Address [facility] Co de Phone Number [facility] [address] [place] [address] * (ABNORMAL) Blood gas, arterial (09/14/2024 8:08 AM CANDY WAFFLE ASSEMBLER) pH, Art 7.34(L) 7.35 - 7.45 PCO2, Arterial 45 35 - 45 mmHg [facility] PO2, Arterial 79(L) 83 - 108 mmHg [facility] HCO3 Art (Calculated) 24 20 - 30 mmol/L [facility] BE, art -2 mmol/L [facility] Comment: Interpretive Data No Reference Range Established Current Interpretive Data was last revised on 2017 O2 Sat Art (Calculated) 95 94 - 98 % [facility] Blood 09/14/2024 8:08 AM C[employer] WAFFLE ASSEMBLER 09/14/2024 8:11 AM C[employer] WAFFLE ASSEMBLER Flo Villagran MD LAB BLOOD ORDERABLES Final R esult Performing Organization Address [facility] Co de Phone Number [facility] [address] [facility] [place] [address] * (ABNORMAL) POCT glucose (09/14/2024 7:50 AM CANDY WAFFLE ASSEMBLER) Glucose, POC 235(H) 70 - 199 mg/dL Comment: For Glucose values <35 mg/dl when Hematocrit is >60 mg/dl,the test may not accurately detect significant hypoglycemia,and testing in the Laboratory should be considered if clinically indicated. Blood 09/14/2024 7:50 AM C[employer]Y WAFFLE ASSEMBLER 09/14/2024 7:50 AM CANDY WAFFLE ASSEMBLER us Flo Villagran MD LAB POCT ORDERABLES - DEVICE Final Result Performing Organization Address [facility] Co de Phone Number [facility] [address] [facility] [employer] [place], [place] [id number] * (ABNORMAL) aPTT (09/14/2024 6:06 AM CAND[employer] WAFFLE ASSEMBLER) aPTT >150(C) 28 - 38 sec Comment: Critical result called to and read back by Tatiana Sutton (RN) on 09/14/2024 07:20:52 [employer] WA[employer]SEMBLER to [id number]. Specimen integrity checked. No clot Interpretive Data Heparin therapeutic range: 66.0 - 100.0 seconds. Range based on correlation with therapeutic heparin activity range of 0.3 - 0.7 Units/mL. Current interpretive data was last revised on 2023. Blood 09/14/2024 6:06 AM C[employer] WAFFLE ASSEMBLER 09/14/2024 6:23 AM [employer] WA[employer]LE ASSEMBLER Abeba Ash MD LAB BLOOD ORDERABLES Final R esult Performing Organization Address [facility] Co de Phone Number [facility] [address] [facility] [employer] [place], [place] [id number] * (ABNORMAL) POCT glucose (09/14/2024 4:10 AM CANDY WAFFLE ASSEMBLER) [facility] Glucose, POC 301(H) 70 - 199 mg/dL Comment: For Glucose values <35 mg/dl when Hematocrit is >60 mg/dl,the test may not accurately detect significant hypoglycemia,and testing in the Laboratory should be considered if clinically indicated. Blood 09/14/2024 4:10 AM C[employer] WAFFLE ASSEMBLER 09/14/2024 4:10 AM C[employer] WAFFLE ASSEMBLER Flo Villagran MD LAB POCT ORDERABLES - DEVICE Final Result [facility] [address] Department [place] [address] * XR Chest 1 View (09/14/2024 3:10 AM CAND[employer] WAFFLE ASSEMBLER) Anatomical Region Laterality Modality Body, Chest N/A Computed Radiogr aphy 09/14/2024 7:30 AM [employer] WA[employer]LE ASSEMBLER Impressions 09/14/2024 7:30 AM [employer] WA[employer] ASSEMBLER Comparison is made to prior chest radiograph dated 09/13/2024. Feeding tube terminates in the stomach. There are increased patchy opacities in the left greater than right lung bases. Findings are most consistent with pneumonia, possibly related to aspiration. No pleural effusion. No pneumothorax. Stable heart size. Electronically signed by: Pippa Sin M.D. Narrative 09/14/2024 7:30 AM [employer] WAFFLE ASSEMBLER EXAMINATION: XR CHEST 1 VIEW Procedure Note [...] lt * (ABNORMAL) eGFR (09/14/2024 1:59 AM CANDY WAFFLE ASSEMBLER) eGFR 38(L) >=60 mL/min/1. 73 m2 Comment: [...] last reviewed 2021. Blood 09/14/2024 1:59 AM C[employer] WAFFLE ASSEMBLER 09/14/2024 2:14 AM C[employer] WAFFLE ASSEMBLER us Flo Villagran MD LAB BLOOD ORDERABLES Final R esult [facility] [address] Department of Laboratories [place], [place] [id number] * (ABNORMAL) Manual Differential (09/14/2024 1:59 AM CANDY WAFFLE ASSEMBLER) Pathologist [facility] Cells Counted 125 Neutrophil abs 3.5 1.5 - 6.5 K/cumm [facility] Imm gran abs 0.1 0.0 - 0.1 K/cumm [facility] Lymphocyte abs 0.3(L) 0.8 - 3.3 K/cumm [facility] Monocyte abs 0.4 0.2 - 0.8 K/cumm [facility] Neutrophil pct 83.2 % [facility] Comment: Interpretive Data Percent cell count reference ranges are not reported, since discordance with absolute values may lead to misinterpretation of CBC data. Current Interpretive Data was last revised on 2017. Lymphocyte pct 6.4 % [facility] Comment: Interpretive Data Percent cell count reference ranges are not reported, since discordance with absolute values may lead to misinterpretation of CBC data. Current Interpretive Data was last revised on 2017. Monocyte pct 8.8 % [facility] Comment: Interpretive Data Percent cell count reference ranges are not reported, since discordance with absolute values may lead to misinterpretation of CBC data. Current Interpretive Data was last revised on 2017. Metamyelocyte pct 1.6(H) 0.0 - 0.0 % [facility] RBC morphology Present(A) [facility] Anisocytosis Slight(A) [facility] Poikilocytosis Moderate(A ) [facility] Echinocytes 3-7/HPF(A) [facility] Platelet estimate Decreased( A) [facility] Morphology scrn See Comment [facility] Comment:WBC: Toxic Vacuolati on present PLT: Platelet morphology normal Automated count not confirmed by smear review; See platelet estimate Blood 09/14/2024 1:59 AM C[employer]Y WAFFLE ASSEMBLER 09/14/2024 2:14 AM [employer] WAFFLE ASSEMBLER Flo Villagran MD LAB BLOOD ORDERABLES Final R esult [facility] [address] Department [place] [address] * (ABNORMAL) CBC without differential (09/14/2024 1:59 AM CANDY WAFFLE ASSEMBLER) WBC 4.2 3.8 - 9.9 K/cumm Hgb 11.1(L) 11.9 - 15.5 g/dL [facility] Hct 36.5 35.6 - 45.5 % [facility] Plt 71(L) 150 - 400 K/cumm [facility] Comment:no clot MPV 12.8(H) 9.1 - 12.3 fL [facility] RBC 3.85(L) 3.90 - 5.20 M/cumm [facility] MCV 94.8 81.3 - 96.4 fL [facility] MCH 28.8 27.1 - 33.3 pg [facility] MCHC 30.4(L) 32.3 - 35.7 g/dL [facility] RDW CV 14.8 11.1 - 14.9 % [facility] RDW SD 51.8(H) 35.7 - 48.1 fL [facility] NRBC abs 0.00 0.00 - 0.01 K/cumm [facility] Blood 09/14/2024 1:59 AM C[employer]Y WAFFLE ASSEMBLER 09/14/2024 2:14 AM C[employer] WAFFLE ASSEMBLER Flo Villagran MD LAB BLOOD ORDERABLES Final R esult Performing Organization Address [facility] Co de Phone Number [facility] [address] [facility] [employer] [place], [place] [id number] * Phosphorus (09/14/2024 1:59 AM CANDY WAFFLE ASSEMBLER) Phosphorus, pl 4.2 2.3 - 4.5 mg/dL Comment:Reviewed Blood 09/14/2024 1:59 AM CANDY WAFFLE ASSEMBLER 09/14/2024 2:14 AM C[employer] WAFFLE ASSEMBLER Flo Villagran MD LAB BLOOD ORDERABLES Final R esult Performing Organization Address [facility] Co de Phone Number [facility] [address] [facility] [place] [address] * Magnesium (09/14/2024 1:59 AM CANDY WAFFLE ASSEMBLER) Magnesium 1.8 1.4 - 2.5 mg/dL Blood 09/14/2024 1:59 AM C[employer] WAFFLE ASSEMBLER 09/14/2024 2:14 AM C[employer] WAFFLE ASSEMBLER Flo Villagran MD LAB BLOOD ORDERABLES Final R esult Performing Organization Address [facility] Co de Phone Number [facility] [address] [facility] [place] [address] * Bilirubin, direct (09/14/2024 1:59 AM CANDY WAFFLE ASSEMBLER) Pathologist [facility] Bilirubin, direct 0.3 0.1 - 0.3 mg/dL Blood 09/14/2024 1:59 AM CANDY WAFFLE ASSEMBLER 09/14/2024 2:14 AM [employer] WAFFLE ASSEMBLER Flo Villagran MD LAB BLOOD ORDERABLES Final R esult [facility] [address] Department [place] [address] * (ABNORMAL) Comprehensive metabolic panel (09/14/2024 1:59 AM CANDY WAFFLE ASSEMBLER) Pathologist [facility] Sodium 149(H) 135 - 145 mmol/L Potassium, pl 3.8 3.3 - 4.9 mmol/L [facility] Chloride 112(H) 97 - 110 mmol/L [facility] CO2 20(L) 22 - 32 mmol/L [facility] Anion gap 17(H) 2 - 15 mmol/L [facility] BUN 44(H) 6 - 25 mg/dL [facility] Creatinine 1.63(H) 0.60 - 1.10 mg/dL [facility] Glucose 312(H) 70 - 199 mg/dL [facility] Comment: Interpretive Data Fasting glucose >/= 126 [...] 2022. Calcium 8.5 8.5 - 10.3 mg/dL [facility] Bilirubin, total 0.6 0.1 - 1.2 mg/dL [facility] Protein, pl 6.0(L) 6.5 - 8.5 g/dL [facility] Albumin 2.8(L) 3.5 - 5.0 g/dL [facility] Alk phos 96 40 - 130 Units/L [facility] ALT 28 7 - 45 Units/L [facility] AST 51(H) 10 - 45 Units/L [facility] Blood 09/14/2024 1:59 AM C[employer]Y WAFFLE ASSEMBLER 09/14/2024 2:14 AM C[employer] WAFFLE ASSEMBLER Flo Villagran MD LAB BLOOD ORDERABLES Final R esult Performing Organization Address [facility] de Phone Number [facility] [address] Department of Laboratories [place], [place] [id number] * (ABNORMAL) POCT glucose (09/14/2024 12:41 AM CANDY WAFFLE ASSEMBLER) Pathologist [facility] Glucose, POC 266(H) 70 - 199 mg/dL Comment: For Glucose values <35 mg/dl when Hematocrit is >60 mg/dl,the test may not accurately detect significant hypoglycemia,and testing in the Laboratory should be considered if clinically indicated. Blood 09/14/2024 12:4 1 AM CANDY WAFFLE ASSEMBLER 09/14/2024 12:41 AM CANDY WAFFLE ASSEMBLER Flo Villagran MD LAB POCT ORDERABLES - DEVICE Final Result Performing Organization Address [facility] de Phone Number [facility] [address] Department [place] [address] * (ABNORMAL) aPTT (09/13/2024 9:58 PM CANDY WAFFLE ASSEMBLER) aPTT 148(C) 28 - 38 sec Comment: spoke with Linda Jean (RN) 09/13/2024 22:44:39 C[employer]Y WAFFLE ASSEMBLER [id number] Interpretive Data Heparin therapeutic range: 66.0 - 100.0 seconds. Range based on correlation with therapeutic heparin activity range of 0.3 - 0.7 Units/mL. Current interpretive data was last revised on 2023. Blood 09/13/2024 9:58 PM CANDY WAFFLE ASSEMBLER 09/13/2024 10:02 PM C[employer]Y WAFFLE ASSEMBLER us Flo Villagran MD LAB BLOOD ORDERABLES Final R esult [facility] [address] Department [place] [address] * XR Abdomen 2 Views Erect and or Decubitus (09/13/2024 9:41 PM CANDY WAFFLE ASSEMBLER) Anatomical Region Laterality Modality Body, Abdomen N/A Computed Radiogr aphy 09/14/2024 9:14 AM C[employer]Y WAFFLE ASSEMBLER Impressions 09/14/2024 9:14 AM CANDY WAFFLE ASSEMBLER Supine and upright views of the abdomen [...] Alfonso Taylor M.D. Narrative 09/14/2024 9:14 AM C[employer] WAFFLE ASSEMBLER EXAMINATION: XR ABDOMEN ERECT AND OR DECUBITUS [...] * (ABNORMAL) POCT glucose (09/13/2024 7:57 PM CANDY WAFFLE ASSEMBLER) Pathologist [facility] Glucose, POC 249(H) 70 - 199 mg/dL Comment: For Glucose values <35 mg/dl when Hematocrit is >60 mg/dl,the test may not accurately detect significant hypoglycemia,and testing in the Laboratory should be considered if clinically indicated. Blood 09/13/2024 7:57 PM CANDY WAFFLE ASSEMBLER 09/13/2024 7:57 PM CANDY WAFFLE ASSEMBLER Flo Villagran MD LAB POCT ORDERABLES - DEVICE Final Result Performing Organization Address [facility]/ZIP Co de Phone Number [facility] [address] [address] * (ABNORMAL) eGFR (09/13/2024 6:33 PM CANDY WAFFLE ASSEMBLER) [facility] eGFR 47(L) >=60 mL/min/1. 73 m2 Comment: [...] last reviewed 2021. Blood 09/13/2024 6:33 PM CANDY WAFFLE ASSEMBLER 09/13/2024 6:41 PM CANDY WAFFLE ASSEMBLER Flo Villagran MD LAB BLOOD ORDERABLES Final R esult Performing Organization Address City/[facility]/ZIP Co de Phone Number [facility] [address] [place] [address] * (ABNORMAL) Renal function panel (09/13/2024 6:33 PM CANDY WAFFLE ASSEMBLER) Sodium 146(H) 135 - 145 mmol/L Potassium, pl 3.6 3.3 - 4.9 mmol/L [facility] Chloride 112(H) 97 - 110 mmol/L [facility] CO2 20(L) 22 - 32 mmol/L [facility] Anion gap 14 2 - 15 mmol/L [facility] BUN 42(H) 6 - 25 mg/dL [facility] Creatinine 1.38(H) 0.60 - 1.10 mg/dL [facility] Glucose 182 70 - 199 mg/dL [facility] Comment: Interpretive Data Fasting glucose >/= 126 [...] 2022. Calcium 7.9(L) 8.5 - 10.3 mg/dL [facility] Phosphorus, pl 2.1(L) 2.3 - 4.5 mg/dL [facility] Albumin 2.4(L) 3.5 - 5.0 g/dL [facility] Blood 09/13/2024 6:33 PM CANDY WAFFLE ASSEMBLER 09/13/2024 6:41 PM CANDY WAFFLE ASSEMBLER Flo Villargan MD LAB BLOOD ORDERABLES Final R esult [facility] [address] [place] [address] * ECG 12 lead (09/13/2024 5:24 PM CANDY WAFFLE ASSEMBLER) 09/13/2024 5:24 PM CANDY WAFFLE ASSEMBLER Narrative [facility] - 09/14/2024 12:02 AM CANDY WAFFLE ASSEMBLER Vent Rate: 136 bpm RR Interval: 440 msec WA Interval: 122 msec QRS Duration: 86 msec QT Interval: 330 msec QTC Interval: 410 msec P-R-T Holden: 57 - -14 - 116 degrees IMPRESSION: SINUS TACHYCARDIA ST DEVIATION AND MODERATE T-WAVE ABNORMALITY, CONSIDER LATERAL ISCHEMIA ABNORMAL ECG Electronically Signed By: Nilson Dubose [facility] Card Flo Villagran MD ECG ORDERABLES Final Result Performing Organization Address [facility] Co de Phone Number [facility] * POCT glucose (09/13/2024 4:29 PM CANDY WAFFLE ASSEMBLER) Glucose, POC 160 70 - 199 mg/dL Comment: For Glucose values <35 mg/dl when Hematocrit is >60 mg/dl,the test may not accurately detect significant hypoglycemia,and testing in the Laboratory should be considered if clinically indicated. Blood 09/13/2024 4:29 PM CANDY WAFFLE ASSEMBLER 09/13/2024 4:29 PM CANDY WAFFLE ASSEMBLER Flo Villagran MD LAB POCT ORDERABLES - DEVICE Final Result Performing Organization Address [facility] de Phone Number [facility] [address] [place] [address] * POCT glucose (09/13/2024 3:18 PM CANDY WAFFLE ASSEMBLER) Glucose, POC 92 70 - 199 mg/dL Comment: For Glucose values <35 mg/dl when Hematocrit is >60 mg/dl,the test may not accurately detect significant hypoglycemia,and testing in the Laboratory should be considered if clinically indicated. Blood 09/13/2024 3:18 PM CANDY WAFFLE ASSEMBLER 09/13/2024 3:18 PM CANDY WAFFLE ASSEMBLER Flo Villagran MD LAB POCT ORDERABLES - DEVICE Final Result Performing Organization Address [facility] Co de Phone Number [facility] [address] [facility] [place] [address] * POCT glucose (09/13/2024 2:29 PM CANDY WAFFLE ASSEMBLER) Glucose, POC 102 70 - 199 mg/dL Comment: For Glucose values <35 mg/dl when Hematocrit is >60 mg/dl,the test may not accurately detect significant hypoglycemia,and testing in the Laboratory should be considered if clinically indicated. Blood 09/13/2024 2:29 PM CANDY WAFFLE ASSEMBLER 09/13/2024 2:29 PM CANDY WAFFLE ASSEMBLER Flo Villagran MD LAB POCT ORDERABLES - DEVICE Final Result Performing Organization Address [facility] de Phone Number [facility] [address] [facility] [place] [address] * (ABNORMAL) aPTT (09/13/2024 2:28 PM CANDY WAFFLE ASSEMBLER) [facility] aPTT 102(H) 28 - 38 sec Comment: Interpretive Data Heparin therapeutic range: 66.0 - 100.0 seconds. Range based on correlation with therapeutic heparin activity range of 0.3 - 0.7 Units/mL. Current interpretive data was last revised on 2023. Blood 09/13/2024 2:28 PM CANDY WAFFLE ASSEMBLER 09/13/2024 2:36 PM CANDY WAFFLE ASSEMBLER Flo Villagran MD LAB BLOOD ORDERABLES Final R esult Performing Organization Address [facility] Co de Phone Number [facility] [address] [place] [address] * POCT glucose (09/13/2024 1:10 PM CANDY WAFFLE ASSEMBLER) Glucose, POC 117 70 - 199 mg/dL Comment: For Glucose values <35 mg/dl when Hematocrit is >60 mg/dl,the test may not accurately detect significant hypoglycemia,and testing in the Laboratory should be considered if clinically indicated. Blood 09/13/2024 1:10 PM CANDY WAFFLE ASSEMBLER 09/13/2024 1:10 PM CANDY WAFFLE ASSEMBLER us Flo Villagran MD LAB POCT ORDERABLES - DEVICE Final Result Performing Organization Address [facility] Co de Phone Number [facility] [address] [employer] [place] [address] * (ABNORMAL) eGFR (09/13/2024 12:22 PM CANDY WAFFLE ASSEMBLER) Pathologist [facility] eGFR 46(L) >=60 mL/min/1. 73 m2 Comment: [...] reviewed 2021. Blood 09/13/2024 12:2 2 PM CANDY WAFFLE ASSEMBLER 09/13/2024 12:40 PM CANDY WAFFLE ASSEMBLER us Abeba Ash MD LAB BLOOD ORDERABLES Final R esult Performing Organization Address [facility] Co de Phone Number [facility] [address] Department of [employer] [place], [place] [id number] * Phosphorus (09/13/2024 12:22 PM CANDY WAFFLE ASSEMBLER) Pathologist [facility] Phosphorus, pl 2.3 2.3 - 4.5 mg/dL Blood 09/13/2024 12:2 2 PM CANDY WAFFLE ASSEMBLER 09/13/2024 12:40 PM CANDY WAFFLE ASSEMBLER Abeba Ash MD LAB BLOOD ORDERABLES Final R esult Performing Organization Address City/[facility]/ZIP Co de Phone Number [facility] [address] [address] * Magnesium (09/13/2024 12:22 PM CANDY WAFFLE ASSEMBLER) [facility] Magnesium 1.9 1.4 - 2.5 mg/dL Blood 09/13/2024 12:2 2 PM CANDY WAFFLE ASSEMBLER 09/13/2024 12:40 PM CANDY WAFFLE ASSEMBLER Abeba Ash MD LAB BLOOD ORDERABLES Final R bernieult Performing Organization Address [facility] Co de Phone Number [facility] [address] [place] [address] * (ABNORMAL) Basic metabolic panel (09/13/2024 12:22 PM CANDY WAFFLE ASSEMBLER) [facility] Sodium 146(H) 135 - 145 mmol/L Potassium, pl 3.5 3.3 - 4.9 mmol/L [facility] Chloride 111(H) 97 - 110 mmol/L [facility] CO2 22 22 - 32 mmol/L [facility] Anion gap 13 2 - 15 mmol/L [facility] BUN 47(H) 6 - 25 mg/dL [facility] Creatinine 1.41(H) 0.60 - 1.10 mg/dL [facility] Glucose 141 70 - 199 mg/dL [facility] Comment: Interpretive Data Fasting glucose >/= 126 [...] 2022. Calcium 8.6 8.5 - 10.3 mg/dL [facility] Blood 09/13/2024 12:2 2 PM CANDY WAFFLE ASSEMBLER 09/13/2024 12:40 PM CANDY WAFFLE ASSEMBLER Abeba Ash MD LAB BLOOD ORDERABLES Final R esult Performing Organization Address [facility] Co de Phone Number [facility] [address] Department [place] [address] * POCT glucose (09/13/2024 12:20 PM CANDY WAFFLE ASSEMBLER) [facility] Signature Glucose, POC 142 70 - 199 mg/dL Comment: For Glucose values <35 mg/dl when Hematocrit is >60 mg/dl,the test may not accurately detect significant hypoglycemia,and testing in the Laboratory should be considered if clinically indicated. Blood 09/13/2024 12:2 0 PM CANDY WAFFLE ASSEMBLER 09/13/2024 12:20 PM CANDY WAFFLE ASSEMBLER Flo Villagran MD LAB POCT ORDERABLES - DEVICE Final Result Performing Organization Address [facility] Co de Phone Number [facility] [address] Department [place] [address] * US Carotids Duplex Bilateral (09/13/2024 11:55 AM CANDY WAFFLE ASSEMBLER) Anatomical Region Laterality Modality Vascular Bilateral Ultrasound 09/13/2024 12:3 7 PM CANDY WAFFLE ASSEMBLER Impressions 09/13/2024 12:37 PM CANDY WAFFLE ASSEMBLER 1) There are minimal non-hemodynamic plaque formations [...] Kwaku Tolentino M.D. Narrative 09/13/2024 12:37 PM CANDY WAFFLE ASSEMBLER DATE:09/13/2024 10:00 AM EXAM: Duplex imaging of [...] W DOPPLER/CF W CONTRAST (09/13/2024 11:24 AM CANDY WAFFLE ASSEMBLER) LV EF 45-50 % CONS SCIMAGE Anatomical Region Laterality Modality Ultrasound 09/13/2024 10:2 8 AM CANDY WAFFLE ASSEMBLER Narrative 09/13/2024 4:50 PM CANDY WAFFLE ASSEMBLER [facility] [address] [place] [address] ECHOCARDIOGRAM Patient Name: BROOKE MARSHALL R : 1975 (48y 8m) Gender: F Study Date: 09/13/2024 10:28:21 AM Ht(Inch): 65 Wt(Lb): 201.94 BSA: 2.05 Tab Card Press Operator: MINH Location: [address] Order Provider: ABEBA ASH BMI: 33.6 BP: 111/63 Ref Provider: ABEBA ASH - PROCEDURES: Echocardiographic Report: Transthoracic Echocardiogram with 2D, M-Mode, Spectral and Color Flow Doppler examination and administration of intravenous contrast. INDICATIONS: Non ST elevation [place]. MEASUREMENTS: 2D/MM Value Range Doppler Value Range [...] By: Rene Nicole MD 09/13/2024 4:49:40 PM CANDY WAFFLE ASSEMBLER Procedure Note Rene Nicole MD - 09/13/2024 [facility] [address] [place] [address] ECHOCARDIOGRAM Patient Name: BROOKE MARSHALL R : 1975 (48y 8m) Gender: F Study Date: 09/13/2024 10:28:21 AM Ht(Inch): 65 Wt(Lb): 201.94 BSA: 2.05 Tab Card Press Operator: MINH Location: [id number] Order Provider: ABEBA ASH BMI: 33.6 BP: 111/63 Ref Provider: ABEBA ASH - PROCEDURES: Echocardiographic Report: Transthoracic Echocardiogram with 2D, M-Mode,Spectral and Color Flow Doppler examination and administration of intravenouscontrast. INDICATIONS: Non ST elevation [place]. MEASUREMENTS: 2D/MM Value Range DopplerValue Range IVSd [...] By: Rene Nicole MD 09/13/2024 4:49:40 PM CANDY WAFFLE ASSEMBLER us Abeba Ash MD CV ECHO PROCEDURES Final Res ult * POCT glucose (09/13/2024 11:12 AM CANDY WAFFLE ASSEMBLER) [facility] Glucose, POC 149 70 - 199 mg/dL Comment: For Glucose values <35 mg/dl when Hematocrit is >60 mg/dl,the test may not accurately detect significant hypoglycemia,and testing in the Laboratory should be considered if clinically indicated. Blood 09/13/2024 11:1 2 AM CANDY WAFFLE ASSEMBLER 09/13/2024 11:12 AM CANDY WAFFLE ASSEMBLER Flo Villagran MD LAB POCT ORDERABLES - DEVICE Final Result Performing Organization Address [facility]/ZIP Co de Phone Number [facility] [address] [place] [address] * (ABNORMAL) DIC Platelet (09/13/2024 9:45 AM CANDY WAFFLE ASSEMBLER) [facility] Plt 96(L) 150 - 400 K/cumm Blood 09/13/2024 9:45 AM CANDY WAFFLE ASSEMBLER 09/13/2024 10:14 AM CANDY WAFFLE ASSEMBLER Flo Villagran MD LAB BLOOD ORDERABLES Final R esult Performing Organization Address [facility] Co de Phone Number [facility] [address] [place] [address] * (ABNORMAL) DIC Coagulation (09/13/2024 9:45 AM CANDY WAFFLE ASSEMBLER) [facility] PT DIC 10.3 10.3 - 13.7 sec INR DIC 0.95 0.90 - 1.20 [facility] PTT DIC 78(H) 28 - 38 sec [facility] Comment: Interpretive Data Heparin therapeutic range: 66.0 - 100.0 seconds. Range based on correlation with therapeutic heparin activity range of 0.3 - 0.7 Units/mL. Current interpretive data was last revised on 2023. D-Dimer 2,217(H) <=499 ng/mL FEU [facility] Comment: Interpretive data FDA approved the D-dimer, [...] Fibrinogen 620(H) 170 - 400 mg/dL [facility] Blood 09/13/2024 9:45 AM CANDY WAFFLE ASSEMBLER 09/13/2024 10:14 AM CANDY WAFFLE ASSEMBLER us Flo Villagran MD LAB BLOOD ORDERABLES Final R esult [facility] [address] Department [place] [address] * HIT Antibodies with Reflex to Serotonin Release Assay (ASHLEY) (09/13/2024 9:45 AM CANDY WAFFLE ASSEMBLER) [facility] HIT antibodies Negative Negative Comment: INTERPRETIVE DATA A result of >/= 1.0 U/mL is interpreted as Heparin/anti-PF4 antibody positive. A result of < 1.0 U/mL is interpreted as Heparin/anti-PF4 antibody negative. Although a positive result may indicate the presence of Heparin-associated antibodies, it does not CONFIRM the diagnosis of Heparin Induced Thrombocytopenia (HIT). Positive specimens will be sent to [facility] ([facility]) for confirmatory testing by Serotonin Release Assay (ASHLEY). Current interpretive data last reviewed 2017 Blood 09/13/2024 9:45 AM CANDY WAFFLE ASSEMBLER 09/13/2024 10:14 AM CANDY WAFFLE ASSEMBLER us Flo Villagran MD LAB BLOOD ORDERABLES Final R esult [facility] [address] Department [place] [address] * DIC Schistocytes (09/13/2024 9:45 AM CANDY WAFFLE ASSEMBLER) Schistocytes None Seen None Seen Blood 09/13/2024 9:45 AM CANDY WAFFLE ASSEMBLER 09/13/2024 10:14 AM CANDY WAFFLE ASSEMBLER Flo Villagran MD LAB BLOOD ORDERABLES Final R esult [facility] [address] Department [place] [address] * (ABNORMAL) Urinalysis reflex to microscopic and culture Urine (09/13/2024 9:45 AM CANDY WAFFLE ASSEMBLER) Color, ur Yellow Yellow Clarity, ur Turbid(A) Clear [facility] Specific gravity, ur 1.020 1.003 - 1.030 [facility] pH, urine 6.0 [facility] Comment: Interpretive Data U rine pH is affected by diet, medications, systemic acid-base disturbances, and renal tubular function. pH may affect urinary stone formation. For example, urine pH below 6.0 may help reduce the tendency for calcium phosphate stones and pH greater than 6.0 may reduce the tendency for uric acid stone formation. Source: [facility] Current Interpretive Data was last revised on 2017 Protein, ur ql 2+(A) Negative [facility] Glucose, ur ql 3+(A) Negative [facility] Ketones, ur Trace Negative [facility] Bilirubin, ur Negative Negative [facility] Blood, ur 1+(A) Negative [facility] Urobilinogen, ur <2.0 <2.0 mg/dL [facility] Nitrite, ur Negative Negative [facility] Leukocyte esterase, ur 4+(A) Negative [facility] UA reflex comment Reflex to microscopic UA will be performed. [facility] Urine 09/13/2024 9:45 AM CANDY WAFFLE ASSEMBLER 09/13/2024 9:45 AM CANDY WAFFLE ASSEMBLER Flo Villagran MD LAB MICROBIOLOGY - GENERAL O RDERABLES Final Result [facility] [address] [place] Department [place] [address] * (ABNORMAL) Drugs of Abuse Screen, Urine without Confirmation (09/13/2024 9:45 AM CANDY WAFFLE ASSEMBLER) Amphetamine, ur Not Detected CutOff 500ng/mL Comment: Interpretive Data - Amphetamines: Samples containing greater than 500 ng/mL d-methamphetamine or other cross-reacting amphetamine compounds are reported as positive. Amphetamine immunoassays are subject to significant false positive rates due to cross-reactivity of non-amphetamine drugs. Confirmatory testing required for definitive results. Current Interpretive Data was last reviewed 2023. Barbiturates, ur Not Detected CutOff 200ng/mL [facility] Comment: Interpretive Data - Barbiturates: Samples containing greater than 200 ng/mL secobarbital or other cross-reacting barbiturate compounds are reported as positive. False positive and false negative results are possible. Confirmatory testing required for definitive results. Current Interpretive Data was last reviewed 2023. Benzodiazepines, ur Not Detected CutOff 100ng/mL [facility] Comment: Interpretive Data - Benzodiazepines: Samples containing greater than 100 ng/mL nordiazepam or other cross-reacting compounds are reported as positive. False positive and false negative results are possible. Confirmatory testing required for definitive results. Current Interpretive Data was last reviewed 2023. Cannabinoids, ur Not Detected CutOff 50 ng/mL [facility] Comment: Interpretive Data - Cannabinoids: Samples containing greater than 50 ng/mL delta-9 THC -COOH or other cross- reacting compounds are reported as positive. False positive and false negative results are possible. Confirmatory testing required for definitive results. Current Interpretive Data was last reviewed 2023. Cocaine, ur Not Detected CutOff 150ng/mL [facility] Comment: Interpretive Data - Cocaine: Samples containing greater than 150 ng/mL benzoylecgonine or other cross- reacting compounds are reported as positive. False positive and false negative results are possible. Confirmatory testing required for definitive results. Current Interpretive Data was last reviewed 2023. Fentanyl, Ur Screen Positive, presumptive (A) CutOff 5 ng/mL [facility] Comment: Interpretive Data - Fentanyl: Samples containing greater than 5 ng/mL norfentanyl, fentanyl, or other cross-reacting fentanyl compounds are reported as positive. False positive and false negative results are possible. Confirmatory testing required for definitive results. Current Interpretive Data was last reviewed 2023. Methadone, ur Not Detected CutOff 300ng/mL [facility] Comment: Interpretive Data - Methadone: Samples containing greater than 300 ng/mL d,l-methadone or other cross-reacting compounds are reported as positive. False positive and false negative results are possible. Confirmatory testing required for definitive results. Current Interpretive Data was last reviewed 2023. Opiates, ur Screen Positive, presumptive (A) CutOff 300ng/mL [facility] Comment: Interpretive Data - Opiates: Samples containing greater than 300 ng/mL morphine or other cross-reacting compounds are reported as positive. False positive and false negative results are possible. Confirmatory testing required for definitive results. Current Interpretive Data was last reviewed 2023. Oxycodone, ur Not Detected CutOff 100ng/mL [facility] Comment: Interpretive Data - Oxycodone: Samples containing greater than 100 ng/mL oxycodone or other cross-reacting compounds are reported as positive. False positive and false negative results are possible. Confirmatory testing required for definitive results. Current Interpretive Data was last reviewed 2023. Phencyclidine, ur Not Detected CutOff 25 ng/mL [facility] Comment: Interpretive Data - Phencyclidine: Samples containing greater than 25 ng/mL phencyclidine or other cross-reacting compounds are reported as positive. False positive and false negative results are possible. Confirmatory testing required for definitive results. Current Interpretive Data was last reviewed 2023. Urine Creatinine 90 mg/dL [facility] Comment: Interpretive Data Urine Creatinine: < 10 mg/dL is extremely dilute = or > 10 but < 20 mg/dL is dilute = or > 20 mg/dL is normal Current Interpretive Data was last revised on 2017. Urine 09/13/2024 9:45 AM CANDY WAFFLE ASSEMBLER 09/13/2024 10:17 AM CANDY WAFFLE ASSEMBLER Narrative [facility] - 09/13/2024 10:46 AM CANDY WAFFLE ASSEMBLER Drug of Abuse screening is performed by immunoassay for medical purposes only. This is not to be used for Pain Management purposes. Flo Villagran MD LAB URINE ORDERABLES Final R esult Performing Organization Address [facility] Co de Phone Number [facility] [address] [facility] [place] [address] * (ABNORMAL) Urinalysis, microscopic only (09/13/2024 9:45 AM CANDY WAFFLE ASSEMBLER) WBC, ur >50(A) 0 - 5 /HPF RBC, ur >50(A) 0 - 2 /HPF [facility] Epithelial cells, squamous, ur >50(A) 0 - 5 /HPF [facility] Comment:Suggestive of contam ination. Consider recollection by clean catch. Bacteria, ur 4+(A) [facility] Yeast, ur 4+(A) [facility] Mucous, ur Present(A) [facility] Culture Reflex Comment Reflex to urine culture will be performed. [facility] Urine 09/13/2024 9:45 AM CANDY WAFFLE ASSEMBLER 09/13/2024 10:17 AM CANDY WAFFLE ASSEMBLER Flo Villagran MD LAB URINE ORDERABLES Final R esult Performing Organization Address [facility] de Phone Number [facility] [address] [place] [address] * (ABNORMAL) Urine culture Urine (09/13/2024 9:45 AM CANDY WAFFLE ASSEMBLER) Report Final Report: Greater than or equal to 100,000 colonies/ml of Lactobacillus species Susceptibility not performed on this isolate (.) Organism LACTOBACILLUS SPECIES [facility] Urine 09/13/2024 9:45 AM CANDY WAFFLE ASSEMBLER 09/13/2024 11:49 AM CANDY WAFFLE ASSEMBLER Narrative [facility] - 09/15/2024 12:40 PM CANDY WAFFLE ASSEMBLER Urine culture reflexed based upon urinalysis results. Flo Villagran MD LAB MICROBIOLOGY - GENERAL O RDERABLES Final Result Performing Organization Address [facility] Co de Phone Number [facility] [address] [place] [address] * Ammonia (09/13/2024 9:45 AM CANDY WAFFLE ASSEMBLER) Ammonia 14 <=50 mcmol/L Blood 09/13/2024 9:45 AM CANDY WAFFLE ASSEMBLER 09/13/2024 10:14 AM CANDY WAFFLE ASSEMBLER Flo Villagran MD LAB BLOOD ORDERABLES Final R esult Performing Organization Address [facility] [facility] de Phone Number [facility] [address] [place] [address] * POCT glucose (09/13/2024 9:31 AM CANDY WAFFLE ASSEMBLER) Glucose, POC 170 70 - 199 mg/dL Comment: For Glucose values <35 mg/dl when Hematocrit is >60 mg/dl,the test may not accurately detect significant hypoglycemia,and testing in the Laboratory should be considered if clinically indicated. Blood 09/13/2024 9:31 AM CANDY WAFFLE ASSEMBLER 09/13/2024 9:31 AM CANDY WAFFLE ASSEMBLER Abeba Ash MD LAB POCT ORDERABLES - DEVICE Final Result Performing Organization Address [facility] de Phone Number [facility] [address] [place] [address] * Lipase - Add on lab test (09/13/2024 9:25 AM CANDY WAFFLE ASSEMBLER) Acceptable Yes Blood 09/13/2024 9:25 AM CANDY WAFFLE ASSEMBLER 09/13/2024 9:25 AM CANDY WAFFLE ASSEMBLER Narrative [facility] - 09/13/2024 9:26 AM CANDY WAFFLE ASSEMBLER Name of Test->Lipase Flo Villagran MD LAB BLOOD ORDERABLES Final R esult Performing Organization Address [facility] Co de Phone Number [facility] [address] [place] [address] * Amylase - Add on lab test (09/13/2024 9:25 AM CANDY WAFFLE ASSEMBLER) Acceptable Yes Blood 09/13/2024 9:25 AM CANDY WAFFLE ASSEMBLER 09/13/2024 9:25 AM CANDY WAFFLE ASSEMBLER Narrative [facility] - 09/13/2024 9:26 AM CANDY WAFFLE ASSEMBLER Name of Test->Amylase us Flo Villagran MD LAB BLOOD ORDERABLES Final R esult [facility] [address] [place] [address] * XR Chest 1 Vw (09/13/2024 8:30 AM CANDY WAFFLE ASSEMBLER) Anatomical Region Laterality Modality Body, Chest N/A Computed Radiogr aphy 09/13/2024 9:34 AM CANDY WAFFLE ASSEMBLER Impressions 09/13/2024 9:34 AM CANDY WAFFLE ASSEMBLER Gastric tube tip overlies the gastric body, side port overlies the gastric antrum, possibly kinked at the side port. Patchy left retrocardiac opacities could reflect atelectasis, aspiration, or pneumonia. No pneumothorax or pleural effusion. Heart size and mediastinal contours normal Electronically signed by: Ana Luisa Benson M.D. Narrative 09/13/2024 9:34 AM CANDY WAFFLE ASSEMBLER EXAMINATION: Chest 1 view. HISTORY: Check tube [...] lt * (ABNORMAL) eGFR (09/13/2024 8:11 AM CANDY WAFFLE ASSEMBLER) eGFR 46(L) >=60 mL/min/1. 73 m2 Comment: [...] last reviewed 2021. Blood 09/13/2024 8:11 AM CANDY WAFFLE ASSEMBLER 09/13/2024 8:21 AM CANDY WAFFLE ASSEMBLER us Abeba Ash MD LAB BLOOD ORDERABLES Final R esult Performing Organization Address [facility] Co de Phone Number [facility] [address] [place] [address] * Beta-hydroxybutyrate (09/13/2024 8:11 AM CANDY WAFFLE ASSEMBLER) Beta-Hydroxybut yrate 0.5 <=0.5 mmol/L Blood 09/13/2024 8:11 AM CANDY WAFFLE ASSEMBLER 09/13/2024 8:16 AM CANDY WAFFLE ASSEMBLER us Abeba Ash MD LAB BLOOD ORDERABLES Final R esult Performing Organization Address [facility]/ZIP Co de Phone Number [facility] [address] Department [place] [address] * (ABNORMAL) aPTT (09/13/2024 8:11 AM CANDY WAFFLE ASSEMBLER) aPTT 72(H) 28 - 38 sec Comment: Interpretive Data Heparin therapeutic range: 66.0 - 100.0 seconds. Range based on correlation with therapeutic heparin activity range of 0.3 - 0.7 Units/mL. Current interpretive data was last revised on 2023. Blood 09/13/2024 8:11 AM CANDY WAFFLE ASSEMBLER 09/13/2024 8:21 AM CANDY WAFFLE ASSEMBLER Abeba Ash MD LAB BLOOD ORDERABLES Final R esult Performing Organization Address [facility]/ZIP Co de Phone Number [facility] [address] [facility] [place] [place] [address] * (ABNORMAL) Phosphorus (09/13/2024 8:11 AM CANDY WAFFLE ASSEMBLER) Pathologist [facility] Phosphorus, pl 2.1(L) 2.3 - 4.5 mg/dL Blood 09/13/2024 8:11 AM CANDY WAFFLE ASSEMBLER 09/13/2024 8:16 AM CANDY WAFFLE ASSEMBLER Abeba Ash MD LAB BLOOD ORDERABLES Final R esult Performing Organization Address [facility] Co de Phone Number [facility] [address] [facility] [place] [place] [address] * Magnesium (09/13/2024 8:11 AM CANDY WAFFLE ASSEMBLER) Pathologist [facility] Magnesium 1.9 1.4 - 2.5 mg/dL Blood 09/13/2024 8:11 AM CANDY WAFFLE ASSEMBLER 09/13/2024 8:16 AM CANDY WAFFLE ASSEMBLER Abeba Ash MD LAB BLOOD ORDERABLES Final R esult Performing Organization Address [facility] Co de Phone Number [facility] [address] [facility] [place] [address] * Lipase (09/13/2024 8:11 AM CANDY WAFFLE ASSEMBLER) Lipase 25 10 - 99 Units/L Blood 09/13/2024 8:11 AM CANDY WAFFLE ASSEMBLER 09/13/2024 8:21 AM CANDY WAFFLE ASSEMBLER Abeba Ash MD LAB BLOOD ORDERABLES Final R esult Performing Organization Address [facility] Co de Phone Number [facility] [address] [facility] [place] [place] [address] * Amylase (09/13/2024 8:11 AM CANDY WAFFLE ASSEMBLER) Pathologist [facility] Amylase 48 30 - 99 Units/L Blood 09/13/2024 8:11 AM CANDY WAFFLE ASSEMBLER 09/13/2024 8:21 AM CANDY WAFFLE ASSEMBLER Abeba Ash MD LAB BLOOD ORDERABLES Final R esult Performing Organization Address [facility] de Phone Number [facility] [address] [facility] [place] [address] * (ABNORMAL) Basic metabolic panel (09/13/2024 8:11 AM CANDY WAFFLE ASSEMBLER) [facility] Sodium 147(H) 135 - 145 mmol/L Potassium, pl 3.7 3.3 - 4.9 mmol/L [facility] Chloride 112(H) 97 - 110 mmol/L [facility] CO2 21(L) 22 - 32 mmol/L [facility] Anion gap 14 2 - 15 mmol/L [facility] BUN 49(H) 6 - 25 mg/dL [facility] Creatinine 1.40(H) 0.60 - 1.10 mg/dL [facility] Glucose 147 70 - 199 mg/dL [facility] Comment: Interpretive Data Fasting glucose >/= 126 [...] 2022. Calcium 8.6 8.5 - 10.3 mg/dL [facility] Blood 09/13/2024 8:11 AM CANDY WAFFLE ASSEMBLER 09/13/2024 8:16 AM CANDY WAFFLE ASSEMBLER Abeba Ash MD LAB BLOOD ORDERABLES Final R esult Performing Organization Address [facility] de Phone Number [facility] [address] Department of [employer] [place], [place] [address] * (ABNORMAL) Blood gas, arterial (09/13/2024 7:58 AM CANDY WAFFLE ASSEMBLER) pH, Art 7.38 7.35 - 7.45 PCO2, Arterial 39 35 - 45 mmHg [facility] PO2, Arterial 76(L) 83 - 108 mmHg [facility] HCO3 Art (Calculated) 23 20 - 30 mmol/L [facility] BE, art -2 mmol/L [facility] Comment: Interpretive Data No Reference Range Established Current Interpretive Data was last revised on 2017 O2 Sat Art (Calculated) 95 94 - 98 % [facility] Blood 09/13/2024 7:58 AM CANDY WAFFLE ASSEMBLER 09/13/2024 8:02 AM CANDY WAFFLE ASSEMBLER us Flo Villagran MD LAB BLOOD ORDERABLES Final R esult Performing Organization Address [facility] de Phone Number [facility] [address] Department [place] [address] * POCT glucose (09/13/2024 7:54 AM CANDY WAFFLE ASSEMBLER) Glucose, POC 157 70 - 199 mg/dL Comment: For Glucose values <35 mg/dl when Hematocrit is >60 mg/dl,the test may not accurately detect significant hypoglycemia,and testing in the Laboratory should be considered if clinically indicated. Blood 09/13/2024 7:54 AM CANDY WAFFLE ASSEMBLER 09/13/2024 7:54 AM CANDY WAFFLE ASSEMBLER Abeba Ash MD LAB POCT ORDERABLES - DEVICE Final Result Performing Organization Address [facility] Co de Phone Number [facility] [address] [facility] [place] [address] * POCT glucose (09/13/2024 6:04 AM CANDY WAFFLE ASSEMBLER) [facility] Glucose, POC 149 70 - 199 mg/dL Comment: For Glucose values <35 mg/dl when Hematocrit is >60 mg/dl,the test may not accurately detect significant hypoglycemia,and testing in the Laboratory should be considered if clinically indicated. Blood 09/13/2024 6:04 AM CANDY WAFFLE ASSEMBLER 09/13/2024 6:04 AM CANDY WAFFLE ASSEMBLER Abeba Ash MD LAB POCT ORDERABLES - DEVICE Final Result Performing Organization Address [facility] de Phone Number [facility] [address] [place] [address] * (ABNORMAL) Blood culture Blood (09/13/2024 5:22 AM CANDY WAFFLE ASSEMBLER) [facility] Direct Specimen Exam Molecular Analysis: Staphylococcus aureus, methicillin-suscep tible (MSSA) detected by the [employer] Blood Culture Identification Panel. This test does not exclude the possibility of a mixed bacterial infection. Please consider this result in the context of clinical findings and evaluate the possibility of antimicrobial de-escalation. Test result called to and read back by Ceferino Grier RN on 09/13/2024 22:28:52 by [email or web address] Direct Specimen Exam Stain: Gram Positive Cocci in clusters [facility] Report Final Report: Staphylococcus aureus, methicillin susceptible (.) [facility] Organism STAPHYLOCOCCUS AUREUS, METHICILLIN SUSCEPTIBLE [facility] Blood 09/13/2024 5:22 AM CANDY WAFFLE ASSEMBLER 09/13/2024 5:48 AM CANDY WAFFLE ASSEMBLER Narrative [facility] - 09/15/2024 7:42 AM CANDY WAFFLE ASSEMBLER From a different site than #1. Collection->Peripheral [...] organism identification may be performed using the [employer] Blood Culture Identification panel. This assay detects microbial DNA in a blood culture broth. This assay has been cleared by the [place] Food and Drug Administration and its performance characteristics have been verified by the [facility]. Interpretive data was last [...] O RDERABLES Final Result Performing Organization Address [facility] Co de Phone Number [facility] [address] [place] [address] * POCT glucose (09/13/2024 5:06 AM CANDY WAFFLE ASSEMBLER) [facility], POC 152 70 - 199 mg/dL Comment: For Glucose values <35 mg/dl when Hematocrit is >60 mg/dl,the test may not accurately detect significant hypoglycemia,and testing in the Laboratory should be considered if clinically indicated. Blood 09/13/2024 5:06 AM CANDY WAFFLE ASSEMBLER 09/13/2024 5:06 AM CANDY WAFFLE ASSEMBLER Abeba Ash MD LAB POCT ORDERABLES - DEVICE Final Result Performing Organization Address [facility] Co de Phone Number [facility] [address] Department of [employer] [place], [place] [id number] * POCT glucose (09/13/2024 4:05 AM CANDY WAFFLE ASSEMBLER) Glucose, POC 189 70 - 199 mg/dL Comment: For Glucose values <35 mg/dl when Hematocrit is >60 mg/dl,the test may not accurately detect significant hypoglycemia,and testing in the Laboratory should be considered if clinically indicated. Blood 09/13/2024 4:05 AM CANDY WAFFLE ASSEMBLER 09/13/2024 4:05 AM CANDY WAFFLE ASSEMBLER Abeba Ash MD LAB POCT ORDERABLES - DEVICE Final Result [facility] [address] Department [place] [address] * CT Head WO Contrast (09/13/2024 3:40 AM CANDY WAFFLE ASSEMBLER) Anatomical Region Laterality Modality Head and Neck N/A Computed Tomogra phy 09/13/2024 3:3 1 AM CANDY WAFFLE ASSEMBLER Addenda Addendum by Zion Rodriguez MD on 09/13/2024 7:20 AM CANDY WAFFLE ASSEMBLER The Non Critical results were discussed with Dr. Flo Villagran by Wei Godinez, Form Setter Helper on 09/13/2024 at 7:16 Edited by: Wei Godinez Electronically signed by: Zion Rodriguez M.D. Impressions 09/13/2024 6:55 AM CANDY WAFFLE ASSEMBLER 1. Small lucency in the right thalamus suspicious for age indeterminate lacunar infarct, new compared to CT 09/22/2021. If there is concern for acute infarct further evaluation can be made with MRI. 2. Otherwise no CT evidence of acute intracranial abnormality. 3. Hyperdense material in the right globe likely intraocular silicone and postoperative in nature. Correlate with history. For the purposes of customer quality engineer, this study was initially interpreted by teleradiology. There is a non-emergent discrepancy that does not immediately impact patient care. Electronically signed by: Zoin Rodriguez M.D. Narrative 09/13/2024 6:55 AM CANDY WAFFLE ASSEMBLER EXAM:CT HEAD WO CONTRAST INDICATION: Right pupil [...] Correlate with history. For the purposes of customer quality engineer, this study was initially interpreted by teleradiology. There is a non-emergent discrepancy that does not immediately impact patient care. Electronically signed by: Zion Rodriguez M.D. Abeba Ash MD IMG CT PROCEDURES Edited Res ult - Final * (ABNORMAL) POCT glucose (09/13/2024 3:15 AM CANDY WAFFLE ASSEMBLER) Glucose, POC 283(H) 70 - 199 mg/dL Comment: For Glucose values <35 mg/dl when Hematocrit is >60 mg/dl,the test may not accurately detect significant hypoglycemia,and testing in the Laboratory should be considered if clinically indicated. Blood 09/13/2024 3:15 AM CANDY WAFFLE ASSEMBLER 09/13/2024 3:15 AM CANDY WAFFLE ASSEMBLER Abeba Ash MD LAB POCT ORDERABLES - DEVICE Final Result [facility] [address] Department [place] [address] * (ABNORMAL) Urinalysis reflex to microscopic and culture Urine (09/13/2024 2:59 AM CANDY WAFFLE ASSEMBLER) Color, ur Yellow Yellow Clarity, ur Turbid(A) Clear [facility] Specific gravity, ur 1.016 1.003 - 1.030 [facility] pH, urine 5.5 [facility] Comment: Interpretive Data U rine pH is affected by diet, medications, systemic acid-base disturbances, and renal tubular function. pH may affect urinary stone formation. For example, urine pH below 6.0 may help reduce the tendency for calcium phosphate stones and pH greater than 6.0 may reduce the tendency for uric acid stone formation. Source: [facility] Current Interpretive Data was last revised on 2017 Protein, ur ql 1+(A) Negative [facility] Glucose, ur ql 4+(A) Negative [facility] Ketones, ur 2+(A) Negative [facility] Bilirubin, ur Negative Negative [facility] Blood, ur Trace(A) Negative [facility] Urobilinogen, ur <2.0 <2.0 mg/dL [facility] Nitrite, ur Negative Negative [facility] Leukocyte esterase, ur 4+(A) Negative [facility] UA reflex comment Reflex to microscopic UA will be performed. [facility] Urine 09/13/2024 2:59 AM CANDY WAFFLE ASSEMBLER 09/13/2024 3:04 AM CANDY WAFFLE ASSEMBLER Abeba Ash MD LAB MICROBIOLOGY - GENERAL O RDERABLES Final Result Performing Organization Address [facility] Co de Phone Number [facility] [address] [facility] [place] [address] * (ABNORMAL) Urinalysis, microscopic only (09/13/2024 2:59 AM CANDY WAFFLE ASSEMBLER) WBC, ur 21-50(A) 0 - 5 /HPF RBC, ur >50(A) 0 - 2 /HPF [facility] Epithelial cells, squamous, ur 6-10(A) 0 - 5 /HPF [facility] Comment:Suggestive of contam ination. Consider recollection by clean catch. Bacteria, ur 4+(A) [facility] Culture Reflex Comment Reflex to urine culture will be performed. [facility] Urine 09/13/2024 2:59 AM CANDY WAFFLE ASSEMBLER 09/13/2024 3:32 PM CANDY WAFFLE ASSEMBLER Abeba Ash MD LAB URINE ORDERABLES Final R esult Performing Organization Address [facility] de Phone Number [facility] [address] [address] * (ABNORMAL) Urine culture Urine (09/13/2024 2:59 AM CANDY WAFFLE ASSEMBLER) Report Final Report: Greater than or equal to 100,000 colonies/ml of Lactobacillus species Susceptibility not performed on this isolate (.) Organism LACTOBACILLUS SPECIES [facility] Urine 09/13/2024 2:59 AM CANDY WAFFLE ASSEMBLER 09/13/2024 3:41 PM CANDY WAFFLE ASSEMBLER Narrative [facility] - 09/14/2024 12:08 PM CANDY WAFFLE ASSEMBLER Urine culture reflexed based upon urinalysis results. Abeba Ash MD LAB MICROBIOLOGY - GENERAL O RDERABLES Final Result Performing Organization Address [facility] Co de Phone Number [facility] [address] Department [place] [address] * (ABNORMAL) POCT glucose (09/13/2024 2:03 AM CANDY WAFFLE ASSEMBLER) [facility] Glucose, POC 260(H) 70 - 199 mg/dL Comment: For Glucose values <35 mg/dl when Hematocrit is >60 mg/dl,the test may not accurately detect significant hypoglycemia,and testing in the Laboratory should be considered if clinically indicated. Blood 09/13/2024 2:03 AM CANDY WAFFLE ASSEMBLER 09/13/2024 2:03 AM CANDY WAFFLE ASSEMBLER Abeba Ash MD LAB POCT ORDERABLES - DEVICE Final Result Performing Organization Address [facility] Co de Phone Number [facility] [address] Department [place] [address] * ECG 12 lead (09/13/2024 1:58 AM CANDY WAFFLE ASSEMBLER) 09/13/2024 1:58 AM CANDY WAFFLE ASSEMBLER Narrative [facility] - 09/13/2024 9:32 PM CANDY WAFFLE ASSEMBLER Vent Rate: 134 bpm RR Interval: 445 msec WA Interval: 118 msec QRS Duration: 87 msec QT Interval: 331 msec QTC Interval: 410 msec P-R-T Holden: 66 - -15 - 124 degrees IMPRESSION: SINUS TACHYCARDIA WITH SHORT WA INTERVAL ST DEVIATION AND MODERATE T-WAVE ABNORMALITY, CONSIDER LATERAL ISCHEMIA ABNORMAL ECG Electronically Signed By: Rene Nicole MD Abeba Ash MD ECG ORDERABLES Final Result Performing Organization Address [facility] Co de Phone Number [facility] [employer] [facility] * (ABNORMAL) Respiratory pathogen panel Nasopharyngeal (09/13/2024 1:50 AM CANDY WAFFLE ASSEMBLER) [facility] Influenza A/2009 RNA Detected(A) Not Detected MBC Influenza B RNA Not Detected Not Detected [facility] RSV RNA Not Detected Not Detected [facility] COVID-19 RNA Not Detected Not Detected [facility] Coronavirus 229E RNA Not Detected Not Detected [facility] Coronavirus HKU1 RNA Not Detected Not Detected [facility] Coronavirus NL63 RNA Not Detected Not Detected [facility] Coronavirus OC43 RNA Not Detected Not Detected [facility] Adenovirus DNA Not Detected Not Detected [facility] Metapneumovirus RNA Not Detected Not Detected [facility] Rhinovirus/Enterov irus RNA Not Detected Not Detected [facility] Parainfluenza 1 RNA Not Detected Not Detected [facility] Parainfluenza 2 RNA Not Detected Not Detected [facility] Parainfluenza 3 RNA Not Detected Not Detected [facility] Parainfluenza 4 RNA Not Detected Not Detected [facility] B. pertussis DNA Not Detected Not Detected [facility] B. parapertussis DNA Not Detected Not Detected [facility] C. pneumoniae DNA Not Detected Not Detected [facility] M. pneumoniae DNA Not Detected Not Detected [facility] Comment: Interpretive Data The [employer] Respiratory Panel (RP2.1) assay is a [...] assay has FDA clearance for testing of [employer]KE LINING FINISHER HELPER swabs. The performance characteristics of this assay have been determined by [facility]. Current interpretive data was last revised on 2021. Nasopharyngeal 09/13/2024 1: 50 AM CANDY WAFFLE ASSEMBLER 09/13/2024 2:04 AM CANDY WAFFLE ASSEMBLER Narrative [facility] - 09/13/2024 2:57 AM CANDY WAFFLE ASSEMBLER Is the Patient experiencing symptoms consistent with COVID?->Yes Surveillance testing for transplant patient?->No Abeba Ash MD LAB MICROBIOLOGY - GENERAL O RDERABLES Final Result [facility] [address] Department [place] [address] MBC * (ABNORMAL) Blood culture Blood (09/13/2024 1:50 AM CANDY WAFFLE ASSEMBLER) Direct Specimen Exam Stain: Gram Positive Cocci in clusters Test result called to and read back by Sandra Joiner RN on 09/14/2024 12:27:01 by PDC. Report Final Report: Staphylococcus aureus, methicillin susceptible Susceptibility reported on this organism on previous culture [id number] (.) [facility] Organism STAPHYLOCOCCUS AUREUS, METHICILLIN SUSCEPTIBLE [facility] Blood 09/13/2024 1:50 AM CANDY WAFFLE ASSEMBLER 09/13/2024 2:17 AM CANDY WAFFLE ASSEMBLER Narrative [facility] - 09/15/2024 10:49 AM CANDY WAFFLE ASSEMBLER Collection->Peripheral Interpretive Data 1. Blood cultures are incubated and monitored continuously for 5 days (120 hours). The first negative report is issued within 24 hours of receipt in the laboratory. 2. All positive cultures are resulted and called to physicians/care providers as soon as they are detected. 3. A rapid molecular test for organism identification may be performed using the [employer] Blood Culture Identification panel. This assay detects microbial DNA in a blood culture broth. This assay has been cleared by the [place] Food and Drug Administration and its performance characteristics have been verified by the [facility]. Interpretive data was last revised on September 11, 2022. Abeba Ash MD LAB MICROBIOLOGY - GENERAL O RDERABLES Final Result Performing Organization Address [facility] [facility] Co de Phone Number [facility] [address] Department of [employer] [place], [place] [id number] * (ABNORMAL) Troponin T high-sensitivity (09/13/2024 1:46 AM CANDY WAFFLE ASSEMBLER) Trop T hs 116(H) <=14 ng/L Comment: Interpretive Data For further hscTnT resources including the diagnostic algorithm and an aid in interpretation, copy and paste this link: https://nrl.testcatalog.org/show/hsTrop Current Interpretive Data last revised 2020. Blood 09/13/2024 1:46 AM CANDY WAFFLE ASSEMBLER 09/13/2024 1:53 AM CANDY WAFFLE ASSEMBLER Abeba Ash MD LAB BLOOD ORDERABLES Final R esult Performing Organization Address [facility] de Phone Number [facility] [address] Department of [employer] [place], [place] [id number] * (ABNORMAL) Lactate (09/13/2024 1:46 AM CANDY WAFFLE ASSEMBLER) Lactate 2.6(H) 0.7 - 2.0 mmol/L Blood 09/13/2024 1:46 AM CANDY WAFFLE ASSEMBLER 09/13/2024 1:51 AM CANDY WAFFLE ASSEMBLER Abeba Ash MD LAB BLOOD ORDERABLES Final R esult Performing Organization Address [facility] Co de Phone Number [facility] [address] Department [place] [address] * (ABNORMAL) eGFR (09/13/2024 1:46 AM CANDY WAFFLE ASSEMBLER) Pathologist [facility] eGFR 44(L) >=60 mL/min/1. 73 m2 Comment: [...] last reviewed 2021. Blood 09/13/2024 1:46 AM CANDY WAFFLE ASSEMBLER 09/13/2024 1:53 AM CANDY WAFFLE ASSEMBLER us Abeba Ash MD LAB BLOOD ORDERABLES Final R esult [facility] [address] Department [place] [address] * (ABNORMAL) Differential, auto (09/13/2024 1:46 AM CANDY WAFFLE ASSEMBLER) Pathologist [facility] Neutrophil abs 6.6(H) 1.5 - 6.5 K/cumm Imm gran abs 0.0 0.0 - 0.1 K/cumm [facility] Lymphocyte abs 0.5(L) 0.8 - 3.3 K/cumm [facility] Monocyte abs 0.7 0.2 - 0.8 K/cumm [facility] Eosinophil abs 0.0 0.0 - 0.5 K/cumm [facility] Basophil abs 0.0 0.0 - 0.1 K/cumm [facility] Neutrophil pct 84.7 % [facility] Comment: Interpretive Data Percent cell count reference ranges are not reported, since discordance with absolute values may lead to misinterpretation of CBC data. Current Interpretive Data was last revised on 2017. Imm gran pct 0.5 % [facility] Comment: Interpretive Data Percent cell count reference ranges are not reported, since discordance with absolute values may lead to misinterpretation of CBC data. Current Interpretive Data was last revised on 2017. Lymphocyte pct 5.8 % [facility] Comment: Interpretive Data Percent cell count reference ranges are not reported, since discordance with absolute values may lead to misinterpretation of CBC data. Current Interpretive Data was last revised on 2017. Monocyte pct 8.9 % [facility] Comment: Interpretive Data Percent cell count reference ranges are not reported, since discordance with absolute values may lead to misinterpretation of CBC data. Current Interpretive Data was last revised on 2017. Eosinophil pct 0.0 % [facility] Comment: Interpretive Data Percent cell count reference ranges are not reported, since discordance with absolute values may lead to misinterpretation of CBC data. Current Interpretive Data was last revised on 2017. Basophil pct 0.1 % [facility] Comment: Interpretive Data Percent cell count reference ranges are not reported, since discordance with absolute values may lead to misinterpretation of CBC data. Current Interpretive Data was last revised on 2017. Blood 09/13/2024 1:46 AM CANDY WAFFLE ASSEMBLER 09/13/2024 1:53 AM CANDY WAFFLE ASSEMBLER us Abeba Ash MD LAB BLOOD ORDERABLES Final R esult [facility] [address] Department [place] [address] * (ABNORMAL) Pro B-type natriuretic peptide (09/13/2024 1:46 AM CANDY WAFFLE ASSEMBLER) NT-proBNP 6,745(H) <=300 pg/mL Comment: Interpretive Comments: [...] Revised Date: 2018. Blood 09/13/2024 1:46 AM CANDY WAFFLE ASSEMBLER 09/13/2024 1:53 AM CANDY WAFFLE ASSEMBLER us Abeba Ash MD LAB BLOOD ORDERABLES Final R esult [facility] [address] Department [place] [address] * (ABNORMAL) CBC with auto differential (09/13/2024 1:46 AM CANDY WAFFLE ASSEMBLER) [facility] WBC 7.7 3.8 - 9.9 K/cumm Hgb 11.9 11.9 - 15.5 g/dL [facility] Hct 39.4 35.6 - 45.5 % [facility] Plt 111(L) 150 - 400 K/cumm [facility] MPV 12.8(H) 9.1 - 12.3 fL [facility] RBC 4.15 3.90 - 5.20 M/cumm [facility] MCV 94.9 81.3 - 96.4 fL [facility] MCH 28.7 27.1 - 33.3 pg [facility] MCHC 30.2(L) 32.3 - 35.7 g/dL [facility] RDW CV 14.6 11.1 - 14.9 % [facility] RDW SD 50.7(H) 35.7 - 48.1 fL [facility] NRBC abs 0.00 0.00 - 0.01 K/cumm [facility] Blood 09/13/2024 1:46 AM CANDY WAFFLE ASSEMBLER 09/13/2024 1:53 AM CANDY WAFFLE ASSEMBLER us Abeba Ash MD LAB BLOOD ORDERABLES Final R esult Performing Organization Address [facility] Co de Phone Number [facility] [address] [place] [address] * (ABNORMAL) aPTT (09/13/2024 1:46 AM CANDY WAFFLE ASSEMBLER) aPTT 25(L) 28 - 38 sec Comment: Interpretive Data Heparin therapeutic range: 66.0 - 100.0 seconds. Range based on correlation with therapeutic heparin activity range of 0.3 - 0.7 Units/mL. Current interpretive data was last revised on 2023. Blood 09/13/2024 1:46 AM CANDY WAFFLE ASSEMBLER 09/13/2024 1:53 AM CANDY WAFFLE ASSEMBLER us Abeba Ash MD LAB BLOOD ORDERABLES Final R esult Performing Organization Address City/[facility]/ZIP Co de Phone Number [facility] [address] [place] [address] * Protime-INR (09/13/2024 1:46 AM CANDY WAFFLE ASSEMBLER) PT 10.0 9.7 - 13.0 sec INR 0.93 0.90 - 1.20 [facility] Comment: Interpretive data Oral anticoagulant therapeutic ranges: Venous thromboembolism prophylaxis or treatment: 2.0-3.0 CARDIOLOGY Standard range: 2.0-3.0 High-intensity range: 2.5-3.5 Refer to indication-specific guidelines for appropriate target ranges for prosthetic heart valve replacement. Current interpretive data was last revised on 2019. Blood 09/13/2024 1:46 AM CANDY WAFFLE ASSEMBLER 09/13/2024 1:53 AM CANDY WAFFLE ASSEMBLER Abeba Ash MD LAB BLOOD ORDERABLES Final R esult Performing Organization Address [facility] Co de Phone Number [facility] [address] [facility] [employer] [place], [place] [phone] * Type and screen (09/13/2024 1:46 AM CANDY WAFFLE ASSEMBLER) ABO Rh A Positive Charles, indirect Negative [facility] Blood 09/13/2024 1:46 AM CANDY WAFFLE ASSEMBLER 09/13/2024 1:51 AM CANDY WAFFLE ASSEMBLER Narrative [facility] - 09/13/2024 2:31 AM CANDY WAFFLE ASSEMBLER Has the patient had Daratumumab or Isatuximab in the past 6 months?->Unknown Abeba Ash MD LAB BLOOD BANK TEST ORDERABL ES Final Result Performing Organization Address [facility] Co de Phone Number [facility] [address] [facility] [place] [address] * Phosphorus (09/13/2024 1:46 AM CANDY WAFFLE ASSEMBLER) Phosphorus, pl 2.7 2.3 - 4.5 mg/dL Blood 09/13/2024 1:46 AM CANDY WAFFLE ASSEMBLER 09/13/2024 1:53 AM CANDY WAFFLE ASSEMBLER Abeba Ash MD LAB BLOOD ORDERABLES Final R esult Performing Organization Address [facility] Co de Phone Number [facility] [address] [place] [address] * Magnesium (09/13/2024 1:46 AM CANDY WAFFLE ASSEMBLER) [facility] Magnesium 2.1 1.4 - 2.5 mg/dL Blood 09/13/2024 1:46 AM CANDY WAFFLE ASSEMBLER 09/13/2024 1:53 AM CANDY WAFFLE ASSEMBLER Abeba Ash MD LAB BLOOD ORDERABLES Final R [facility] Performing Organization Address [facility] de Phone Number [facility] [address] [place] [address] * (ABNORMAL) Hemoglobin A1c (09/13/2024 1:46 AM CANDY WAFFLE ASSEMBLER) [facility] Hgb A1C 9.1(H) 4.0 - 5.6 % Estimated Average Glucose 214 mg/dL [facility] Comment: The ADA recommends reporting an estimated Average Glucose (eAG) with all Hemoglobin A1c results using the equation derived from a study of 507 normal and diabetic adults. Minority populations were underrepresented and children were not included. (Diabetes Care 31:1338-2710, 2008). The eAG is not equivalent to a fasting glucose. Blood 09/13/2024 1:46 AM CANDY WAFFLE ASSEMBLER 09/13/2024 1:53 AM CANDY WAFFLE ASSEMBLER Abeba Ash MD LAB BLOOD ORDERABLES Final R [facility] Performing Organization Address [facility] de Phone Number [facility] [address] [facility] [place] [address] * (ABNORMAL) Comprehensive metabolic panel (09/13/2024 1:46 AM CANDY WAFFLE ASSEMBLER) [facility] Sodium 151(H) 135 - 145 mmol/L Potassium, pl 4.0 3.3 - 4.9 mmol/L [facility] Chloride 110 97 - 110 mmol/L [facility] CO2 20(L) 22 - 32 mmol/L [facility] Anion gap 21(H) 2 - 15 mmol/L [facility] BUN 47(H) 6 - 25 mg/dL [facility] Creatinine 1.47(H) 0.60 - 1.10 mg/dL [facility] Glucose 264(H) 70 - 199 mg/dL [facility] Comment: Interpretive Data Fasting glucose >/= 126 [...] 2022. Calcium 9.2 8.5 - 10.3 mg/dL [facility] Bilirubin, total 0.3 0.1 - 1.2 mg/dL [facility] Protein, pl 7.0 6.5 - 8.5 g/dL [facility] Albumin 3.4(L) 3.5 - 5.0 g/dL [facility] Alk phos 202(H) 40 - 130 Units/L [facility] ALT 48(H) 7 - 45 Units/L [facility] AST 45 10 - 45 Units/L [facility] Blood 09/13/2024 1:46 AM CANDY WAFFLE ASSEMBLER 09/13/2024 1:53 AM CANDY WAFFLE ASSEMBLER us Abeba Ash MD LAB BLOOD ORDERABLES Final R esult [facility] [address] Department [place] [address] * (ABNORMAL) POCT glucose (09/13/2024 1:30 AM CANDY WAFFLE ASSEMBLER) [facility] Glucose, POC 248(H) 70 - 199 mg/dL Comment: For Glucose values <35 mg/dl when Hematocrit is >60 mg/dl,the test may not accurately detect significant hypoglycemia,and testing in the Laboratory should be considered if clinically indicated. Blood 09/13/2024 1:30 AM CANDY WAFFLE ASSEMBLER 09/13/2024 1:30 AM CANDY WAFFLE ASSEMBLER Abeba Ash MD LAB POCT ORDERABLES - DEVICE Final Result [facility] [address] Department [place] [address] * (ABNORMAL) Serum lipid panel (06/26/2014 8:11 AM CANDY WAFFLE ASSEMBLER) Cholesterol 328(H) 40 - 199 mg/dl HISTORICAL [...] revised on 2012. Serum 06/26/2014 8:11 AM CANDY WAFFLE ASSEMBLER Historical Provider LAB BLOOD ORDERABLES Salma l Result HISTORICAL RESULTS * COLONOSCOPY REPORT (06/07/2014) Anatomical Region Laterality Modality Other Narrative 06/07/2014 Ordered by an unspecified provider. Historical Provider GI PROCEDURE ORDERABLES F inal Result from Last 3 Months or Most Recently Relevant to Health Maintenance Insurance [facility] MEDICARE ADVANTAGE [facility] DIVISION [facility] MEDICARE ADVANTAGE IDPA IDPA [facility] MEDICARE ADVANTAGE Advance Directives For more information, please contact: [phone] * LIMITED - No CPR (Latest Code [...] Relationship Healthcare Agent Relationship Communication SOFIA dinh [facility] Daughter in Law Health Care Agent [phone] (Mobile ) Care Teams Population Geneticist Relationship Specialty Start Date End Date Donte Lucas PA [address] [place], [place] [phone] PCP - General Physician Supervisor [employer] 08/26/24
--- OUTSIDE RECORDS SUMMARY | 2024-10-28 13:15 | XMS_ITS | Encounter Summary ---
Author Organization [facility] Address [address] [place] [address] Phone Care Team Providers Care Hydro Excavation Operator Name Role Phone ShadyalbertoDonte PAC Primary Care Provider [phone] Reason for Visit * Auth/Cert (Routine) Specialty Diagnoses / Procedures Referred By Jadyn t Referred To Contact Referral ID Status Reason Start Date Expiration Date Visits Re quested Visits Authorized [id number] [phone] Encounter Details Date Type Department Care Team (Latest Contact Info) Description 10/06/2024 10:00 AM IT FIELD TECHNICIAN [facility] [address] [place] [address] Mai Bass, RN [place] SN - [place] START OF CARE Social History Tobacco Use Types Packs/Day Years Used Date Smoking Tobacco: Never Assessed Comments Unknown Sex and Gender Information Value Date Recorded Sex Assigned at Not on file Legal Sex Female 1:58 PM IT FIELD TECHNICIAN Gender Identity Not on file Sexual Orientation Not on file documented as of this encounter Last Filed Vital Signs Vital Sign Reading Time Taken Comments Blood Pressure 126/78 10/06/2024 10:43 AM IT FIELD TECHNICIAN Pulse 96 10/06/2024 10:43 AM IT FIELD TECHNICIAN Temperature 36.8 C (98.3 F) 10/06/2024 10:43 AM IT FIELD TECHNICIAN Respiratory Rate 20 10/06/2024 10:43 AM IT FIELD TECHNICIAN Oxygen Saturation 97% 10/06/2024 10:43 AM IT FIELD TECHNICIAN Inhaled Oxygen Concentration - - Weight 90.7 kg (200 lb) 10/06/2024 10:43 AM IT FIELD TECHNICIAN Height 165.1 cm (5' 5 ) 10/06/2024 10:43 AM IT FIELD TECHNICIAN Body Mass Index 33.28 10/06/2024 10:43 AM IT FIELD TECHNICIAN documented in this encounter Plan of Treatment Upcoming Encounters Date Type Department Care Team (Late st Contact Info) Description 10/28/2024 1:30 PM CDT [facility] [address] [place] [address] Brooke Burt, [place] - HOME VISIT 11/01/2024 1:00 AM CDT [facility] [address] [place] [address] Mai Bass, RN [place] 11/01/2024 2:00 PM CDT [facility] [address] [place] [address] Elisa Pollack, COLD STORAGE SUPERVISOR [place] 11/02/2024 1:00 AM CDT [facility] [address] [place] [address] Brooke Burt O[place] 11/03/2024 2:00 PM CDT [facility] [address] [place] [address] Elisa Pollack, COLD STORAGE SUPERVISOR [place] 11/04/2024 1:00 AM CDT [facility] [address] [place] [address] Brooke Burt, [place] 11/04/2024 2:00 AM CDT [facility] [address] [place] [address] Mai Bass, RN [place] 11/07/2024 1:00 AM CDT [facility] [address] [place] [address] Elisa Pollack, COLD STORAGE SUPERVISOR [place] 11/08/2024 1:00 AM CDT [facility] [address] [place] [address] Mai Bass, RN [place] 11/09/2024 1:00 AM CDT [facility] [address] [place] [address] Brooke Burt O[place] 11/10/2024 1:00 AM CDT [facility] [address] [place] [address] Elisa Pollack, COLD STORAGE SUPERVISOR [place] 11/11/2024 1:00 AM CDT [facility] [address] [place] [address] Brooke Burt, SECRETARY SPECIALIST [place] 11/11/2024 2:00 AM CDT [facility] [address] [place] [address] Mai Bass, RN [place] 11/14/2024 1:00 AM CDT Home Care Visit [facility] [address] Maggie Murguia, PT 11/15/2024 1:00 AM CDT Home Care Visit [facility] [address] Kathrin Mcmullen OT 11/15/2024 2:00 AM CDT Home Care Visit [facility] [address] Mai Bass, RN [place] 11/16/2024 1:00 AM CDT Home Care Visit [facility] [address] Elisa Pollack, COLD STORAGE SUPERVISOR [place] 11/18/2024 1:00 AM CDT Home Care Visit [facility] [address] Brooke Burt, [place] 11/18/2024 2:00 AM CDT [facility] [address] [place] [address] Mai Bass, RN [place] 11/21/2024 1:00 AM CDT Home Care Visit [facility] [address] Elisa Pollack, COLD STORAGE SUPERVISOR [place] 11/22/2024 1:00 AM CDT Home Care Visit [facility] [address] Brooke Burt, [place] 11/22/2024 2:00 AM CDT Home Care Visit [facility] [address] Mai Bass, RN [place] 11/23/2024 1:00 AM CDT Home Care Visit [facility] [address] Elisa Pollack, COLD STORAGE SUPERVISOR [place] 11/24/2024 1:00 AM CDT Home Care Visit [facility] [address] Brooke Burt, [place] 11/25/2024 1:00 AM CDT Home Care Visit [facility] [address] Mai Bass, RN [place] 11/28/2024 1:00 AM CDT Home Care Visit [facility] [address] Elisa Pollack, COLD STORAGE SUPERVISOR [place] 11/29/2024 1:00 AM CDT Home Care Visit [facility] [address] Mai Bass, RN [place] 11/30/2024 1:00 AM CDT Appointment [facility] [address] Maggie Murguia, PT 12/02/2024 1:00 AM CDT Appointment [facility] [address] Mai Bass, RN [place] documented as of this encounter Visit Diagnoses Not on filedocumented in this encounter Care Teams Hydro Excavation Operator Relationship Specialty Start Date End Date Donte Lucas PAC [address] [place] [address] PCP - General Physician Mold Filling Operator 10/01/24 documented as of this encounter
--- OUTSIDE RECORDS SUMMARY | 2024-10-28 13:16 | XMS_ITS | Continuity of Care Document ---
Author Organization [facility] Address [address] [place] [address] Phone Care Team Providers Care Work Distributor Name Role Phone Arnulfo Farrell Unavailable Unavailable Advance Directives Directive Yes / No Effective Date File Name No Information Encounters Encounter Description Practice Location Reason(s) For Visit Diagnoses Date Provider Providers Copied on Encounter [facility], [address] [place] [address], [facility], tel:[phone] *Sajan Powell Primary Care No Information Bud Arredondo. [address] [place] [address], [facility], . tel:[phone] Family History Family Member Type Diagnosis Age [...]
--- OUTSIDE RECORDS SUMMARY | 2024-10-28 13:16 | XMS_ITS | Clinical Summary ---
Author Organization [facility] Address [address] [place] [address] Care Team Providers Care Hand Finisher Name Role Phone Rose Conn MD Unavailable Keith Goodwin MD Unavailable Ace Honeycutt MD Primary Care Provider [phone] Allergies Active Allergy Reactions Criticality Noted Date [...] Blood Gluc Sensor (FREESTYLE DUONG 2 SENSOR) [facility] [place] Active REGRANEX 0.01 % Gel APPLY [...] CONCENTRATOR SUPPLY, DME,Indications :CHF (congestive heart failure) ([facility]) 1 Device by Nasal route continuous. 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, limited to breakdown of skin ([facility]) 09/15/2023 Diabetic ulcer of right heel associated with type 2 diabetes mellitus, limited to breakdown of skin ([facility]) Encounters Date Type Department Care Team Description 10/24/2024 Hospital Follow-up Call [facility] [address], [place] [id number] Florinda Shanks RN 10/19/2024 Travel 10/15/2024 12:14 PM SCIENCE EDUCATION PROFESSOR - 10/20/2024 4:19 PM CDT Hospital Encounter [facility] [address] [place] [address] Balaji Woodward MD Boddu, Lavanya, MD Discharge Disposition: Home or Self Care (Routine Discharge) 10/14/2024 7:19 PM SCIENCE EDUCATION PROFESSOR Anesthesia Event [facility] [address] [place] [place] [address] Jeffery Escobar CRNA 10/14/2024 4:10 PM SCIENCE EDUCATION PROFESSOR - 10/15/2024 11:11 AM SCIENCE EDUCATION PROFESSOR Hospital Encounter [facility] [address] [place] [place] [address] Matt Mixon DO Dufner, Anastasia M, MD Wujek, Daniel A, MD Breathing Problem Discharge Disposition: Transfer to [facility] 10/14/2024 Travel 09/11/2024 12:52 PM SCIENCE EDUCATION PROFESSOR - 09/12/2024 11:41 PM SCIENCE EDUCATION PROFESSOR Emergency [facility] [address] [place] [address] [place] [address] Malena Cortez MD Sprague, Robert, DO Nausea Discharge Disposition: Transfer to [facility] 09/11/2024 Travel 08/31/2024 9:00 AM SCIENCE EDUCATION PROFESSOR Office Visit [facility] [address] [place] [address] Pavithra Mclean MD Gallbladder ([employer], gallstones) 08/31/2024 Travel 08/23/2024 Abstract [facility] [address] [place] [address] Abstract, Doc Pccl 08/19/2024 7:19 AM SCIENCE EDUCATION PROFESSOR - 08/19/2024 10:06 AM [facility] Emergency [facility] [address] [place] [address] [place] [address] Marciano Mora DO Abdominal Pain; Edema Discharge Disposition: Home or Self Care (Routine Discharge) 08/19/2024 Travel 08/12/2024 Transcribe Orders [facility] Pre Access Team [address] [place] [address] Pravin Oneill NP 08/01/2024 11:13 AM SCIENCE EDUCATION PROFESSOR - 08/01/2024 11:59 PM SCIENCE EDUCATION PROFESSOR Hospital Encounter [facility] [address] [place] [address] Lorenza Inman MD Discharge Disposition: Home or Self Care (Routine Discharge) 08/01/2024 Orders Only [facility] [address] [place] [address] Pravin Oneill NP 08/01/2024 Travel from Last [...] drink = 0.6 oz pur e alcohol) [facility] Utilities Answer Date Recorded In the past 12 months has [employer], gas, oil, or water [email or web address] threatened to shut off services in your [...] any time in the past 12 m [facility], were you homeless or living in a fpc (including now)? No 10/15/2024 Comments No Sex and Gender Information Value Date Recorded Sex Assigned at Female 08/31/2024 8:28 AM SCIENCE EDUCATION PROFESSOR Legal Sex Female 8:37 PM CDT Gender [...] Appointment [facility] [address] [place] [address] Rose Conn MD [address] [place] [address] 01/10/2025 1:30 PM CDT Appointment [facility] [address] [place] [address] [place] [address] Rose Conn MD [address] [place] [address] 01/20/2025 3:15 PM CDT Office Visit [facility] [place] [address] Rose Conn MD [address] [place] [address] Health Maintenance Due Date Last Done Comments [...] 2024 Influenza Adult (#1) 2024 PHQ-2 (Physician [place]) 08/10/2024 ASCVD LDL 09/15/2024 09/15/2023 Lipid Panel [...] 10/18/2024 8:01 AM CDT POCT GLUCOSE - CHISHOLM DOCKED DEVICE Routine 10/18/2024 6:54 AM CDT [...] RED BLOOD CELLS Routine 10/16/2024 12:45 AM SCIENCE EDUCATION PROFESSOR POCT GLUCOSE - CHISHOLM DOCKED DEVICE Routine 10/16/2024 12:11 AM SCIENCE EDUCATION PROFESSOR HC BLOOD TYPING ABO Routine 10/15/2024 8:00 PM SCIENCE EDUCATION PROFESSOR HEMOGLOBIN AND HEMATOCRIT Routine 10/15/2024 8:00 PM SCIENCE EDUCATION PROFESSOR TROPONIN, QUANT Routine 10/15/2024 8:00 PM SCIENCE EDUCATION PROFESSOR POCT GLUCOSE - CHISHOLM DOCKED DEVICE Routine 10/15/2024 7:59 [address]UCATION [address] ABD+PEL WO CON STAT 10/15/2024 6:00 PM SCIENCE EDUCATION PROFESSOR CULTURE, BACTERIA, BLOOD Routine 10/15/2024 3:43 PM SCIENCE EDUCATION PROFESSOR TYPE & SCREEN Routine 10/15/2024 3:43 PM SCIENCE EDUCATION PROFESSOR PROTHROMBIN TIME, VENOUS Routine 10/15/2024 3:43 PM SCIENCE EDUCATION PROFESSOR CBC W/DIFF AUTOMATED Routine 10/15/2024 3:43 PM SCIENCE EDUCATION PROFESSOR CALCIUM, IONIZED Routine 10/15/2024 3:43 PM SCIENCE EDUCATION PROFESSOR HEPATIC FUNCTION PANEL Routine 10/15/2024 3:43 PM SCIENCE EDUCATION PROFESSOR THYROID STIM HORMONE TSH Routine 10/15/2024 3:43 PM SCIENCE EDUCATION PROFESSOR PHOSPHORUS, INORGANIC PHOSPHATE Routine 10/15/2024 3:43 PM SCIENCE EDUCATION PROFESSOR LACTIC ACID Routine 10/15/2024 3:43 PM SCIENCE EDUCATION PROFESSOR MAGNESIUM Routine 10/15/2024 3:43 PM SCIENCE EDUCATION PROFESSOR TROPONIN, QUANT Routine 10/15/2024 3:43 PM SCIENCE EDUCATION PROFESSOR BASIC METABOLIC PANEL Routine 10/15/2024 3:43 PM SCIENCE EDUCATION PROFESSOR PRO-BRAIN NATRIURETIC PEPTIDE STAT 10/15/2024 3:43 PM SCIENCE EDUCATION PROFESSOR US RETROPERITONEAL LTD Today 10/15/2024 3:21 PM SCIENCE EDUCATION PROFESSOR POCT GLUCOSE - CHISHOLM DOCKED DEVICE Routine 10/15/2024 3:07 PM SCIENCE EDUCATION PROFESSOR USE ECHOCARDIOGRAM W CON Routine 10/15/2024 2:34 PM SCIENCE EDUCATION PROFESSOR CULTURE LOWER RESPIRATORY W/GRAM STAIN Nurse Collected Priority 10/15/2024 2:20 PM SCIENCE EDUCATION PROFESSOR XR CHEST PORTABLE Routine 10/15/2024 1:43 PM SCIENCE EDUCATION PROFESSOR RESPIRATORY PCR PANEL 2 Nurse Collected Priority 10/15/2024 1:32 PM SCIENCE EDUCATION PROFESSOR ECG 12-LEAD STAT 10/15/2024 1:14 PM SCIENCE EDUCATION PROFESSOR MRSA SCREENING Nurse Collected Priority 10/15/2024 12:54 PM SCIENCE EDUCATION PROFESSOR HC URINALYSIS AUTO W/MICRO Nurse Collected Priority 10/15/2024 12:54 PM SCIENCE EDUCATION PROFESSOR URINE BACTERIA CULTURE Nurse Collected Priority 10/15/2024 12:53 PM SCIENCE EDUCATION PROFESSOR POCT GLUCOSE - CHISHOLM DOCKED DEVICE Routine 10/15/2024 12:37 PM SCIENCE EDUCATION PROFESSOR POCT GLUCOSE - CHISHOLM DOCKED DEVICE Routine 10/15/2024 11:02 AM SCIENCE EDUCATION PROFESSOR ECG 12-LEAD Routine 10/15/2024 9:32 AM SCIENCE EDUCATION PROFESSOR CARDIAC PROFILE Routine 10/15/2024 9:20 AM SCIENCE EDUCATION PROFESSOR BLOOD GAS, VENOUS STAT 10/15/2024 8:37 AM SCIENCE EDUCATION PROFESSOR XR CHEST PORTABLE STAT 10/15/2024 8:32 AM SCIENCE EDUCATION PROFESSOR TRANSFUSE RED BLOOD CELLS Routine 10/15/2024 8:20 AM SCIENCE EDUCATION PROFESSOR TYPE & SCREEN Routine 10/15/2024 5:17 AM SCIENCE EDUCATION PROFESSOR LACTIC ACID STAT 10/15/2024 5:17 AM SCIENCE EDUCATION PROFESSOR POCT GLUCOSE - CHISHOLM DOCKED DEVICE Routine 10/15/2024 4:37 AM SCIENCE EDUCATION PROFESSOR FOLIC ACID SERUM Routine 10/15/2024 4:24 AM SCIENCE EDUCATION PROFESSOR VITAMIN B-12 Routine 10/15/2024 4:24 AM SCIENCE EDUCATION PROFESSOR RETICULOCYTE CT, AUTO Routine 10/15/2024 4:24 AM SCIENCE EDUCATION PROFESSOR FERRITIN Routine 10/15/2024 4:24 AM SCIENCE EDUCATION PROFESSOR IRON SAT PANEL (IRON,IBC,%SAT) Routine 10/15/2024 4:24 AM SCIENCE EDUCATION PROFESSOR COMPREHENSIVE METABOLIC PANEL STAT 10/15/2024 4:24 AM SCIENCE EDUCATION PROFESSOR CBC W/DIFF AUTOMATED STAT 10/15/2024 4:24 AM SCIENCE EDUCATION PROFESSOR POCT GLUCOSE - CHISHOLM DOCKED DEVICE Routine 10/14/2024 11:39 PM SCIENCE EDUCATION PROFESSOR URINE BACTERIA CULTURE STAT 10/14/2024 8:10 PM SCIENCE EDUCATION PROFESSOR HC URINALYSIS AUTO W/MICRO STAT 10/14/2024 8:10 PM SCIENCE EDUCATION PROFESSOR IV PLACEMENT Routine 10/14/2024 7:00 PM SCIENCE EDUCATION PROFESSOR CULTURE, BACTERIA, BLOOD Routine 10/14/2024 6:42 PM SCIENCE EDUCATION PROFESSOR CULTURE, BACTERIA, BLOOD Routine 10/14/2024 6:37 PM SCIENCE EDUCATION PROFESSOR XR CHEST PA+LAT STAT 10/14/2024 5:26 PM SCIENCE EDUCATION PROFESSOR PRO-BRAIN NATRIURETIC PEPTIDE STAT 10/14/2024 5:09 PM SCIENCE EDUCATION PROFESSOR MAGNESIUM STAT 10/14/2024 5:09 PM SCIENCE EDUCATION PROFESSOR COMPREHENSIVE METABOLIC PANEL STAT 10/14/2024 5:09 PM SCIENCE EDUCATION PROFESSOR CBC W/DIFF AUTOMATED STAT 10/14/2024 5:09 PM SCIENCE EDUCATION PROFESSOR BLOOD GAS, ARTERIAL LAB STAT 10/14/2024 4:56 PM SCIENCE EDUCATION PROFESSOR POCT GLUCOSE - CHISHOLM DOCKED DEVICE Routine 10/14/2024 4:44 PM SCIENCE EDUCATION PROFESSOR POCT GLUCOSE - CHISHOLM DOCKED DEVICE Routine 09/12/2024 11:33 PM SCIENCE EDUCATION PROFESSOR POCT GLUCOSE - CHISHOLM DOCKED DEVICE Routine 09/12/2024 10:56 PM SCIENCE EDUCATION PROFESSOR BLOOD GAS, ARTERIAL LAB STAT 09/12/2024 10:33 PM SCIENCE EDUCATION PROFESSOR ECG 12-LEAD Routine 09/12/2024 10:25 PM SCIENCE EDUCATION PROFESSOR POCT GLUCOSE - CHISHOLM DOCKED DEVICE Routine 09/12/2024 9:49 PM SCIENCE EDUCATION PROFESSOR BLOOD GAS, ARTERIAL LAB STAT 09/12/2024 9:06 PM SCIENCE EDUCATION PROFESSOR BETA-HYDROXYBUTYRATE STAT 09/12/2024 9:06 PM SCIENCE EDUCATION PROFESSOR BASIC METABOLIC PANEL STAT 09/12/2024 9:06 PM SCIENCE EDUCATION PROFESSOR POCT GLUCOSE - CHISHOLM DOCKED DEVICE Routine 09/12/2024 8:48 PM SCIENCE EDUCATION PROFESSOR PARTIAL THROMBOPLASTIN TIME,PTT STAT 09/12/2024 8:20 PM SCIENCE EDUCATION PROFESSOR COMPREHENSIVE METABOLIC PANEL STAT 09/12/2024 6:34 PM SCIENCE EDUCATION PROFESSOR ECG 12-LEAD STAT 09/12/2024 6:33 PM SCIENCE EDUCATION PROFESSOR TROPONIN, QUANT STAT 09/12/2024 6:32 PM SCIENCE EDUCATION PROFESSOR CT HEAD WO CON STAT 09/12/2024 6:27 PM SCIENCE EDUCATION PROFESSOR XR CHEST PORTABLE STAT 09/12/2024 6:27 PM SCIENCE EDUCATION PROFESSOR PARTIAL THROMBOPLASTIN TIME,PTT STAT 09/12/2024 2:23 PM SCIENCE EDUCATION PROFESSOR ECG 12-LEAD Routine 09/12/2024 10:41 AM SCIENCE EDUCATION PROFESSOR PARTIAL THROMBOPLASTIN TIME,PTT STAT 09/12/2024 6:18 AM SCIENCE EDUCATION PROFESSOR PROTHROMBIN TIME, VENOUS STAT 09/12/2024 6:18 AM SCIENCE EDUCATION PROFESSOR CBC W/DIFF AUTOMATED STAT 09/12/2024 6:18 AM SCIENCE EDUCATION PROFESSOR HEPARIN, ANTI XA, UFH STAT 09/12/2024 6:17 AM SCIENCE EDUCATION PROFESSOR POCT GLUCOSE - CHISHOLM DOCKED DEVICE Routine 09/12/2024 3:18 AM SCIENCE EDUCATION PROFESSOR PARTIAL THROMBOPLASTIN TIME,PTT STAT 09/12/2024 12:16 AM SCIENCE EDUCATION PROFESSOR PARTIAL THROMBOPLASTIN TIME,PTT STAT 09/11/2024 4:02 PM SCIENCE EDUCATION PROFESSOR CULTURE, BACTERIA, BLOOD STAT 09/11/2024 3:53 PM SCIENCE EDUCATION PROFESSOR TROPONIN, QUANT TIMED 09/11/2024 3:53 PM SCIENCE EDUCATION PROFESSOR CT CHEST+ABD+PEL WO CON STAT 09/11/2024 1:56 PM SCIENCE EDUCATION PROFESSOR PROTHROMBIN TIME, VENOUS STAT 09/11/2024 1:39 PM SCIENCE EDUCATION PROFESSOR HEPARIN, ANTI XA, UFH STAT 09/11/2024 1:39 PM SCIENCE EDUCATION PROFESSOR BLOOD GAS, VENOUS STAT 09/11/2024 1:39 PM SCIENCE EDUCATION PROFESSOR MAGNESIUM STAT 09/11/2024 1:39 PM SCIENCE EDUCATION PROFESSOR LACTIC ACID W REFLEX (SEPSIS) STAT 09/11/2024 1:39 PM SCIENCE EDUCATION PROFESSOR TROPONIN, QUANT STAT 09/11/2024 1:39 PM SCIENCE EDUCATION PROFESSOR COMPREHENSIVE METABOLIC PANEL STAT 09/11/2024 1:39 PM SCIENCE EDUCATION PROFESSOR CBC W/DIFF AUTOMATED STAT 09/11/2024 1:39 PM SCIENCE EDUCATION PROFESSOR POCT GLUCOSE - CHISHOLM DOCKED DEVICE Routine 09/11/2024 1:37 PM SCIENCE EDUCATION PROFESSOR ECG 12-LEAD Routine 09/11/2024 1:32 PM SCIENCE EDUCATION PROFESSOR URINE BACTERIA CULTURE STAT 09/11/2024 1:12 PM SCIENCE EDUCATION PROFESSOR HC URINALYSIS AUTO W/MICRO STAT 09/11/2024 1:12 PM SCIENCE EDUCATION PROFESSOR HC URINALYSIS AUTO W/MICRO STAT 08/19/2024 9:04 AM SCIENCE EDUCATION PROFESSOR POCT GLUCOSE - CHISHOLM DOCKED DEVICE Routine 08/19/2024 8:54 AM SCIENCE EDUCATION PROFESSOR XR CHEST PORTABLE STAT 08/19/2024 8:16 AM SCIENCE EDUCATION PROFESSOR CT ABD+PEL WO CON STAT 08/19/2024 8:07 AM SCIENCE EDUCATION PROFESSOR PRO-BRAIN NATRIURETIC PEPTIDE STAT 08/19/2024 8:01 AM SCIENCE EDUCATION PROFESSOR TROPONIN, QUANT STAT 08/19/2024 8:01 AM SCIENCE EDUCATION PROFESSOR LIPASE STAT 08/19/2024 8:01 AM SCIENCE EDUCATION PROFESSOR AMYLASE STAT 08/19/2024 8:01 AM SCIENCE EDUCATION PROFESSOR COMPREHENSIVE METABOLIC PANEL STAT 08/19/2024 8:01 AM SCIENCE EDUCATION PROFESSOR CBC W/DIFF AUTOMATED STAT 08/19/2024 8:01 AM SCIENCE EDUCATION PROFESSOR ECG 12-LEAD STAT 08/19/2024 7:48 AM SCIENCE EDUCATION PROFESSOR COMPREHENSIVE METABOLIC PANEL Routine 08/01/2024 11:40 AM SCIENCE EDUCATION PROFESSOR Alkaline phosphatase elevation LIPID PANEL Routine 09/15/2023 9:04 AM SCIENCE EDUCATION PROFESSOR Familial hypercholesterolemia from Last 3 Months or Most Recently Relevant to Health Maintenance Results * (ABNORMAL) CBC W/DIFF AUTOMATED (10/20/2024 1:58 PM CDT) Only the most recent of9 resultswithin the time period is included. WBC 10.26 4.00 - 10.80 x10'3/uL 10/20/2024 2:15 PM CDT [facility] RBC 3.11(L) 4.10 - 5.40 x10'6/uL 10/20/2024 2:15 PM CDT [facility] HGB 8.8(L) 12.0 - 16.0 G/DL 10/20/2024 2:15 PM CDT [facility] HCT 29.2(L) 36.0 - 47.0 % 10/20/2024 2:15 PM CDT [facility] MCV 93.9 78.0 - 100.0 FL 10/20/2024 2:15 PM CDT [facility] MCH 28.3 27.0 - 31.0 PG 10/20/2024 2:15 PM CDT [facility] MCHC 30.1(L) 33.0 - 36.0 G/DL 10/20/2024 2:15 PM CDT [facility] RDW 18.4(H) 11.5 - 14.5 % 10/20/2024 2:15 PM CDT [facility] PLT 256 150 - 350 x10'3/uL 10/20/2024 2:15 PM CDT [facility] MPV 10.8(H) 7.4 - 10.4 FL 10/20/2024 2:15 PM CDT [facility] DIFFERENTIAL TYPE AUTOMATED DIFFERENTIAL 10/20/2024 2:15 PM CDT [facility] SEG NEUTROPHILS 72.9 % 2:15 PM CDT [facility] LYMPHOCYTES 15.0 % 10/20/2024 2:15 PM CDT [facility] MONOCYTES 9.4 % 10/20/2024 2:15 PM CDT [facility] EOSINOPHILS 2.0 % 10/20/2024 2:15 PM CDT [facility] BASOPHILS 0.1 % 10/20/2024 2:15 PM CDT [facility] IMMATURE GRANS % 0.6 % 10/21/19 2:15 PM CDT [facility] ABS. NEUTROPHILS 7.48 1.60 - 8.30 x10'3/uL 10/20/2024 2:15 PM CDT [facility] ABS. LYMPHOCYTES 1.54 0.80 - 4.70 x10'3/uL 10/20/2024 2:15 PM CDT [facility] ABS. MONOCYTES 0.96 0.00 - 1.50 x10'3/uL 10/20/2024 2:15 PM CDT [facility] ABS. EOSINOPHILS 0.21 0.00 - 0.40 x10'3/uL 10/20/2024 2:15 PM CDT [facility] ABS. BASOPHILS 0.01 0.00 - 0.20 x10'3/uL 10/20/2024 2:15 PM CDT [facility] ABS. IMMATURE GRANULOCYTES 0.06(H) 0.00 - 0.03 x10'3/uL 10/20/2024 2:15 PM CDT [facility] ABS. NUCLEATED RBC'S 0.00 0.00 - 0.01 x10'3/uL 10/20/2024 2:15 PM CDT [facility] NRBC % 0.0 % 10/20/2024 2:15 PM CDT [facility] 10/20/2024 1:58 PM CDT Mari Galeas MD LABORATORY Final Result Performing Organization Address [facility] Co de Phone Number [facility] [address] [place] [address], [phone] * IMMUNOFIXATION, URINE (10/20/2024 11:30 AM CDT) IMMUNOFIXATION URINE SEE PATHOLOGIST'S INTERPRETATION 10/21/2024 12:52 PM CDT [facility] IMMUNOFIXATION INTERPRETATION (U) THIS URINE IMMUNOTYPING WAS INTERPRETED BY 10/24/2024 10:22 AM CDT [facility] Comment: MD PATTY MAGANA PROTEIN NOT DETECTED. 10/20/2024 11:3 0 AM CDT Maris Aguilar [employer] URINE ORDERABLES Final R esult Performing Organization Address [facility] Co de Phone Number [facility] [address] [place] [address], [phone] * (ABNORMAL) PROTEIN ELECTROPHORESIS URINE RANDOM (10/20/2024 11:30 AM CDT) PROTEIN URINE TOTAL RANDOM 14.5(H) <12.0 MG/DL 10/21/2024 12:51 PM CDT [facility] INTERPRETATION THIS URINE PEP WAS INTERPRETED BY 10/24/2024 10:20 AM CDT [facility] Comment: DR PAVITHRA FLORENCE MD NO SIGNIFICANT RANDOM PROTEINURIA. THERE IS A TRACE OF ALBUMIN ON ELECTROPHORESIS. BENCE ABRAHAM PROTEIN IS NOT DETECTED. URINE SPECIMEN / Unknown 10/20/2024 11:30 AM CDT us Maris Aguilar [employer] URINE ORDERABLES Final R esult [facility] [address] [place] [address], [id number] * (ABNORMAL) URINALYSIS (10/20/2024 11:30 AM CDT) Only the most recent of5 resultswithin the time period is included. COLOR (U) LIGHT YELLOW 10/20/2024 11:59 AM CDT [facility] TRANSPARENCY CLEAR 10/20/2024 11:59 AM CDT [facility] SPECIFIC GRAVITY (U) 1.012 1.002 - 1.035 10/20/2024 11:59 AM CDT [facility] U PH 7.0 5 - 8 10/20/2024 11:59 AM CDT [facility] PROTEIN RANDOM (U) NEGATIVE NEGATIVE 10/20/2024 11:59 AM CDT [facility] GLUCOSE (U) 100(A) NEGATIVE MG/DL 10/20/2024 11:59 AM CDT [facility] KETONES MG/DL (U) NEGATIVE NEGATIVE 10/20/2024 11:59 AM CDT [facility] BILIRUBIN (U) NEGATIVE NEGATIVE 10/20/2024 11:59 AM CDT [facility] BLOOD (U) 1+(A) NEGATIVE 10/20/2024 11:59 AM CDT [facility] NITRITES NEGATIVE NEGATIVE 10/20/2024 11:59 AM CDT [facility] UROBILINOGEN NORMAL 0 - 1 EU/DL 10/20/2024 11:59 AM CDT [facility] LEUKOCYTES (U) 1+(A) NEGATIVE 10/20/2024 11:59 AM CDT [facility] RBC/HPF 21(H) 0 - 3 /HPF 10/20/2024 11:59 AM CDT [facility] WBC/HPF 3 0 - 6 /HPF 10/20/2024 11:59 AM CDT [facility] BACTERIA (U) NONE /HPF 10/20/2024 11:59 AM CDT [facility] SQUAMOUS EPITHELIALS 12 10/20/2024 11:59 AM CDT [facility] BUDDING YEAST PRESENT 10/20/2024 11:59 AM CDT [facility] HYALINE CASTS 8 10/20/2024 11:59 AM CDT [facility] URINE SPECIMEN OBTAINED BY CLEAN CATCH PROCEDURE / Unknown 10/20/2024 11:30 AM CDT us Mari Galeas MD URINE ORDERABLES Final Result Performing Organization Address [facility] Co de Phone Number [facility] [address] [place] [address], [phone] * (ABNORMAL) POCT glucose (10/20/2024 11:20 AM CDT) Only the most recent of34 resultswithin the time period is included. GLUCOSE POC 185(H) 70 - 109 10/20/2024 11:24 AM CDT [facility] 10/20/2024 11:2 0 AM CDT us Mari Galeas MD POCT ORDERABLES - DEVICE Final Result Performing Organization Address City/[facility] Co de Phone Number [facility] [address] [place] [id number], [phone] * (ABNORMAL) BASIC METABOLIC PANEL (10/20/2024 2:30 AM CDT) Only the most recent of8 resultswithin the time period is included. SODIUM S/P/B 139 136 - 145 MMOL/L 10/20/2024 3:22 AM CDT [facility] POTASSIUM S/P/B 4.0 3.5 - 5.1 MMOL/L 10/20/2024 3:22 AM CDT [facility] CHLORIDE S/P/B 105 97 - 115 MMOL/L 10/20/2024 3:22 AM CDT [facility] CO2 27.8 21.0 - 32.0 MMOL/L 10/20/2024 3:22 AM CDT [facility] GLUCOSE 242(H) 74 - 106 MG/DL 10/20/2024 3:22 AM CDT [facility] BUN 52(H) 7 - 18 MG/DL 10/20/2024 3:22 AM CDT [facility] CREATININE S/P/B 1.71(H) 0.55 - 1.02 MG/DL 10/20/2024 3:22 AM CDT [facility] CALCIUM S/P/B 8.6 8.5 - 10.1 MG/DL 10/20/2024 3:22 AM CDT [facility] ANION GAP 6.2 2.0 - 10.0 MMOL/L 10/20/2024 3:22 AM T [facility] OSMOLALITY (CALC) 310 MOSM/KG 025 3:22 AM T [facility] Comment:REFERENCE RANGE NOT ESTABLISHED GFR ESTIMATE 36(L) >90 ML/MIN/1. 73 M2 10/20/2024 3:22 AM CDT [facility] GFR NOTES GFR REFERENCE S: 10/20/2024 3:22 AM T [facility] Comment: THE ESTIMATED GFR IS CALCULATED [...] MD LABORATORY Final Result Performing Organization Address [facility] de Phone Number [facility] [address] [place] [address], [phone] * MAGNESIUM (10/20/2024 2:30 AM CDT) Only the most recent of9 resultswithin the time period is included. MAGNESIUM 2.0 1.6 - 2.6 MG/DL 10/20/2024 3:22 AM CDT [facility] 10/20/2024 2:30 AM CDT us Balaji Bartlett MD LABORATORY Final Result Performing Organization Address [facility] de Phone Number [facility] [address] [place] [address], [phone] * (ABNORMAL) RENAL FUNCTION PANEL (10/19/2024 11:44 PM CDT) Only the most recent of2 resultswithin the time period is included. SODIUM S/P/B 137 136 - 145 MMOL/L 10/20/2024 12:35 AM CDT [facility] POTASSIUM S/P/B 4.0 3.5 - 5.1 MMOL/L 10/20/2024 12:35 AM T [facility] CHLORIDE S/P/B 103 97 - 115 MMOL/L 10/20/2024 12:35 AM [facility] CO2 27.7 21.0 - 32.0 MMOL/L 10/20/2024 12:35 AM [facility] GLUCOSE 303(H) 74 - 106 MG/DL 10/20/2024 12:35 AM [facility] BUN 52(H) 7 - 18 MG/DL 10/20/2024 12:35 AM [facility] CREATININE S/P/B 1.78(H) 0.55 - 1.02 MG/DL 10/20/2024 12:35 AM [facility] CALCIUM S/P/B 8.8 8.5 - 10.1 MG/DL 10/20/2024 12:35 AM [facility] ALBUMIN S/P/B 2.5(L) 3.4 - 5.0 G/DL 10/20/2024 12:35 AM [facility] PHOSPHORUS 2.8 2.5 - 4.9 MG/DL 10/20/2024 12:35 AM [facility] ANION GAP 6.3 2.0 - 10.0 MMOL/L 10/20/2024 12:35 AM [facility] OSMOLALITY (CALC) 309 MOSM/KG 025 12:35 AM [facility] Comment:REFERENCE RANGE NOT ESTABLISHED GFR ESTIMATE 35(L) >90 ML/MIN/1. 73 M2 10/20/2024 12:35 AM [facility] GFR NOTES GFR REFERENCE S: 10/20/2024 12:35 AM [facility] Comment: THE ESTIMATED GFR IS CALCULATED [...] 10/19/2024 11:4 4 PM CDT Maris Aguilar [facility] Final Re sult Performing Organization Address [facility] Co de Phone Number [facility] [address] [place] [address], [phone] * (ABNORMAL) ALBUMIN URINE RANDOM W/CREATININE (10/19/2024 4:19 PM CDT) Only the most recent of2 resultswithin the time period is included. ALBUMIN (U) 1.3 MG/DL 10/19/2024 5:08 PM CDT [facility] CREATININE (U) 40.4 MG/DL 10/19/2024 5:08 PM CDT [facility] Comment:REFERENCE RANGE NOT ESTABLISHED MICROALBUMIN (U) 31.4(H) <25.0 MG/G 10/20/19 25 5:08 PM CDT [facility] URINE SPECIMEN / Unknown 10/19/2024 4:19 PM CDT Maris Aguilar [facility] URINE ORDERABLES Final R esult Performing Organization Address [facility]/ZIP Co de Phone Number [facility] [address] [place] [address], [phone] * USV JUSTIN DUPLEX LOW EXT MANPREET (10/19/2024 3:17 PM CDT) Anatomical Region Laterality Modality Extremity Ultrasound 10/19/2024 2:22 PM CDT Narrative 10/20/2024 8:33 AM CDT Vascular Report Pat.Name: CEM MARSHALL Pat.ID: [id number] .Date: 10/19/2024 Refer.MD: MARI GALEAS Exam Time: 2:22:00 PM Study Type:PVI VENOUS DUPLEX SCAN-LEGS BILAT Height: 65 in Age: 5 1975,48Y Sex: F Sonogrphr: Rene Christiansen Sheldon Pat. Stat.:Inpatient Room: 504 ICD - 9: M79.89 Swelling of limb CPT - 4: 64296 Venous Duplex LE/UE Reason for Study:Lower limb swelling Race: W ++++++++++++++++++++++++++++++++++++ FINDINGS: ++++++++++++++++++++++++++++++++++++ Bilat: No evidence of acute or chronic thrombosis noted in the deep or superficial veins in either lower extremity. Comments: Technically difficult study due to inability to position. <Electronic Signature> 10/20/2024 08:33 AM Rose Conn M.D. Procedure Note Rose Conn MD - 10/20/2024 Vascular Report Pat.Name: CEM MARSHALL Patti.ID: [id number] .Date: 10/19/2024 Refer.MD: MARI GALEAS Exam Time: 2:22:00 PM Study Type:PVI VENOUS DUPLEX SCAN-LEGS BILAT Height: 65 in Age: 5 1975,48Y Sex: F Sonogrphr: Rene Christiansen Sheldon Pat. Stat.:Inpatient Room: 504 ICD - 9: M79.89 Swelling of limb CPT - 4: 96653 Venous Duplex LE/UE Reason for Study:Lower limb swelling Race: W ++++++++++++++++++++++++++++++++++++ FINDINGS: ++++++++++++++++++++++++++++++++++++ Bilat: No evidence of acute or chronic thrombosis noted in the deep or superficial veins in either lower extremity. Comments: Technically difficult study due to inability to position. <Electronic Signature> 10/20/2024 08:33 AM Rose Conn M.D. Mari Galeas MD [facility] Final Result * (ABNORMAL) CBC, AUTO, NO DIFF (10/18/2024 3:09 AM CDT) Only the most recent of3 resultswithin the time period is included. WBC 11.15(H) 4.00 - 10.80 x10'3/uL 10/18/2024 3:17 AM CDT [facility] RBC 3.07(L) 4.10 - 5.40 x10'6/uL 10/18/2024 3:17 AM CDT [facility] HGB 8.9(L) 12.0 - 16.0 G/DL 10/18/2024 3:17 AM CDT [facility] HCT 28.8(L) 36.0 - 47.0 % 10/18/2024 3:17 AM CDT [facility] MCV 93.8 78.0 - 100.0 FL 10/18/2024 3:17 AM CDT [facility] MCH 29.0 27.0 - 31.0 PG 10/18/2024 3:17 AM CDT [facility] MCHC 30.9(L) 33.0 - 36.0 G/DL 10/18/2024 3:17 AM CDT [facility] RDW 19.1(H) 11.5 - 14.5 % 10/18/2024 3:17 AM CDT [facility] PLT 284 150 - 350 x10'3/uL 10/18/2024 3:17 AM CDT [facility] MPV 10.9(H) 7.4 - 10.4 FL 10/18/2024 3:17 AM CDT [facility] 10/18/2024 3:09 AM CDT Segundo Storm MD LABORATORY Final Result Performing Organization Address City/[facility] Co de Phone Number [facility] [address] [place] [address], [phone] * PHOSPHORUS, INORGANIC PHOSPHATE (10/18/2024 3:09 AM CDT) Only the most recent of4 resultswithin the time period is included. PHOSPHORUS 4.5 2.5 - 4.9 MG/DL 10/18/2024 3:50 AM CDT [facility] 10/18/2024 3:09 AM CDT Segundo Storm MD LABORATORY Final Result Performing Organization Address [facility] de Phone Number [facility] [address] [place] [address], [phone] * CULTURE, BACTERIA BLOOD (10/17/2024 2:27 PM CDT) Only the most recent of5 resultswithin the time period is included. SPEC DESCRIPTION BLOOD 10/18/19 25 2:34 PM CDT [facility] SPECIAL REQUESTS BLOOD-AERO BIC BOTTLE ONLY 10/17/2024 2:34 PM CDT [facility] CULTURE RESULT NO GROWTH 5 DAYS 10/22/2024 2:36 PM CDT [facility] BLOOD SPECIMEN OBTAINED FOR BLOOD CULTURE / Unknown 10/17/2024 2:27 PM CDT 10/17/2024 2:34 PM CDT Balaji Bartlett MD MICROBIOLOGY - GENERAL ORDER JAROD Final Result Performing Organization Address City/[facility] Co de Phone Number [facility] [address] [place] [address], [phone] * (ABNORMAL) HEPARIN, ANTI XA, UFH (10/17/2024 1:45 AM CDT) Only the most recent of6 resultswithin the time period is included. HEPARIN ANTI XA UFH 0.15(L) 0.30 - 0.70 IU/ML 10/17/2024 2:09 AM CDT [facility] Comment: UFH Therapeutic Anti Xa Ranges: Medical Therapeutic Range: 0.30 - 0.70 IU/mL Cardiac Therapeutic Range: 0.30 - 0.50 IU/mL Neuro Therapeutic Range: 0.20 - 0.40 IU/mL 10/17/2024 1:45 AM CDT us Balaji Bartlett MD LABORATORY Final Result Performing Organization Address [facility] Co de Phone Number [facility] [address] [place] [address], [phone] * (ABNORMAL) PROTIME/INR, VENOUS (10/17/2024 1:45 AM CDT) Only the most recent of5 resultswithin the time period is included. PROTIME 12.6(H) 9.4 - 12.5 SEC 10/17/2024 3:09 AM CDT [facility] INR 1.1 0.8 - 1.1 10/17/2024 3:09 AM CDT [facility] 10/17/2024 1:45 AM CDT us Balaji Bartlett MD LABORATORY Final Result Performing Organization Address [facility] Co de Phone Number [facility] [address] [place] [address], [phone] * (ABNORMAL) HEMOGLOBIN AND HEMATOCRIT (10/16/2024 8:00 PM CDT) Only the most recent of2 resultswithin the time period is included. HGB 9.4(L) 12.0 - 16.0 G/DL 10/16/2024 8:03 PM CDT [facility] HCT 31.1(L) 36.0 - 47.0 % 10/16/2024 8:03 PM CDT [facility] 10/16/2024 8:00 PM CDT Balaji Bartlett MD LABORATORY Final Result [facility] [address] [place] [address], [id number] * (ABNORMAL) POCT ACUTE VENOUS PANEL (10/16/2024 5:14 PM CDT) Only the most recent of2 resultswithin the time period is included. SODIUM WHOLE BLOOD 142 138 - 146 mmol/L 10/16/2024 5:16 PM CDT [facility] POTASSIUM WHOLE BLOOD 5.0(H) 3.5 - 4.9 mmol/L 10/16/2024 5:16 PM CDT [facility] CA IONIZED WH BLOOD 1.23 1.12 - 1.32 mmol/L 10/16/2024 5:16 PM CDT [facility] POC PH VENOUS 7.398 7.31 - 7.41 10/16/2024 5:16 PM CDT [facility] POC PCO2 VENOUS 45.1 41.0 - 51.0 MMHG 10/16/2024 5:16 PM CDT [facility] POC PO2 VENOUS 31 25 - 40 MMHG 10/16/2024 5:16 PM CDT [facility] POC HCO3 VENOUS 27.9 23 - 28 MMOL/L 10/16/2024 5:16 PM CDT [facility] POC TCO2 VENOUS 29 24 - 29 MMOL/L 10/16/2024 5:16 PM CDT [facility] POC BASE EXCESS VENOUS 3 0 - 3 MMOL/L 10/16/2024 5:16 PM CDT [facility] POC HEMATOCRIT 42 38 - 51 % 10/16/2024 5:16 PM CDT [facility] TIME TEST WAS PERFORMED: 1714 10/16/2024 5:16 PM CDT [facility] 10/16/2024 5:14 PM CDT us Balaji Bartlett MD POCT ORDERABLES - DEVICE Fin al Result [facility] [address] [place] [address], [id number] * (ABNORMAL) POCT ACUTE ARTERIAL PANEL (10/16/2024 12:12 PM CDT) SODIUM WHOLE BLOOD 138 138 - 146 mmol/L 10/16/2024 12:18 PM CDT [facility] POTASSIUM WHOLE BLOOD 5.1(H) 3.5 - 4.9 mmol/L 10/16/2024 12:18 PM CDT [facility] CA IONIZED WH BLOOD 1.25 1.12 - 1.32 mmol/L 10/16/2024 12:18 PM CDT [facility] POC PH ARTERIAL 7.408 7.35 - 7.45 10/16/2024 12:18 PM CDT [facility] POC PCO2 ARTERIAL 38.5 35.0 - 45.0 MMHG 10/16/2024 12:18 PM CDT [facility] POC PO2 ARTERIAL 72(L) 80 - 105 MMHG 10/16/2024 12:18 PM CDT [facility] POC HCO3 ARTERIAL 24.3 22 - 26 MMOL/L 10/16/2024 12:18 PM CDT [facility] POC TCO2 ARTERIAL 25 23 - 27 MMOL/L 10/16/2024 12:18 PM CDT [facility] POC BASE EXCESS ARTERIAL 0 0 - 3 MMOL/L 10/16/2024 12:18 PM CDT [facility] POC HEMATOCRIT 28(L) 38 - 51 % 10/16/2024 12:18 PM CDT [facility] TIME TEST WAS PERFORMED: 1212 10/16/2024 12:18 PM CDT [facility] 10/16/2024 12:1 2 PM CDT us Balaji Bartlett MD POCT ORDERABLES - DEVICE Fin al Result [facility] [address] [place] [address], [id number] * ECG 12 lead (10/16/2024 9:01 AM CDT) Only the most recent of8 resultswithin the time period is included. 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1975 Requested By: BALAJI WOODWARD Order Number: [id number] Reading MD: Beto Rosado Measurements Intervals [place] Rate: 123 P: 49 ND: 142 QRS: 8 QRSD: 85 T: 142 QT: 298 QTc: 427 Interpretive Statements SINUS TACHYCARDIA LOW QRS VOLTAGE IN PRECORDIAL LEADS [QRS DEFLECTION < 1.0 mV IN CHEST LEADS] ANTEROLATERAL MYOCARDIAL INFARCTION , OF INDETERMINATE AGE [40+ ms Q WAVE IN I/aVL/V3-V6] sway Procedure Note Beto Rosado MD - 10/16/2024 [facility] [address] [place] [address] Test Date: 2024-10-16 Pat Name: CEM MARSHALL Department: 1 Room: [place] [address] Gender: Female [employer] 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1975 Requested By: BALAJI WOODWARD Order Number: [id number] Reading MD: Beto Rosado Measurements Intervals [place] Rate: 123 P: 49 ND: 142 QRS: 8 QRSD: 85 T: 142 QT: 298 QTc: 427 Interpretive Statements SINUS TACHYCARDIA LOW QRS VOLTAGE IN PRECORDIAL LEADS [QRS DEFLECTION < 1.0 mV IN CHESTLEADS] ANTEROLATERAL MYOCARDIAL INFARCTION , OF INDETERMINATE AGE [40+ ms Q WAVEIN I/aVL/V3-V6] sway Balaji Bartlett MD ECG ORDERABLES Final Result Performing Organization Address City/[facility] Co de Phone Number [facility] * STREP PNEUMO AG URINE (10/16/2024 7:00 AM CDT) S. PNEUMONIAE URINARY AG NEGATIVE NEGATIVE 10/17/2024 3:10 PM CDT [facility] Comment: PRESUMPTIVE NEGATIVE FOR PNEUMOCOCCAL PNEUMONIA, SUGGESTING NO CURRENT OR RECENT PNEUMOCOCCAL INFECTION. INFECTION DUE TO STREPTOCOCCUS PNEUMONIA CANNOT BE RULED OUT SINCE THE ANTIGEN PRESENT IN THE SAMPLE MAY BELOW THE DETECTION LIMIT OF THE TEST. SPECIMEN TYPE URINE CLEAN CATCH 10/15/2024 2:30 PM SCIENCE EDUCATION PROFESSOR [facility] URINE SPECIMEN OBTAINED BY CLEAN CATCH PROCEDURE / Unknown 10/16/2024 7:00 AM CDT Balaji Bartlett MD MICROBIOLOGY - GENERAL ORDER JAROD Final Result Performing Organization Address City/[facility] Co de Phone Number [facility] [address] [place] [address], [phone] * UREA NITROGEN URINE RANDOM (10/16/2024 7:00 AM CDT) UREA NITROGEN (U) 106 MG/DL 10/16/2024 8:30 AM CDT [facility] Comment:REFERENCE RANGE NOT ESTABLISHED URINE SPECIMEN / Unknown 10/16/2024 7:00 AM CDT us Balaji Bartlett MD URINE ORDERABLES Final Resul t Performing Organization Address [facility] de Phone Number [facility] [address] [place] [address], [place] [phone] * LEGIONELLA AG URINE (10/16/2024 7:00 AM CDT) LEGIONELLA ANTIGEN (URINE) NEGATIVE NEGATIVE 10/17/2024 3:10 PM CDT [facility] Comment: PRESUMPTIVE NEGATIVE FOR L. PNEUMOPHILA [...] ORDER JAROD Final Result Performing Organization Address [facility] de Phone Number [facility] [address] [place] [address], [place] [phone] * TRANSFUSE RED BLOOD CELLS (10/16/2024 5:26 [...] 4:43 AM Narrative 10/16/2024 4:44 AM CDT [address] [address] PATIENT NAME: CEM MARSHALL EXAM: Chest one [...] Procedure Note Joseph Doyle MD - 10/16/[address] [address] PATIENT NAME: CEM MARSHALL EXAM: Chest one [...] 7.1(H) <5.7 % 10/16/2024 5:33 AM CDT [facility] ESTIMATED AVG GLUCOSE 157(H) 74 - 114 MG/DL 10/16/2024 5:33 AM CDT [facility] 10/16/2024 4:00 AM CDT Segundo Storm MD LABORATORY Final Result Performing Organization Address [facility] Co de Phone Number [facility] [address] [place] [address], [phone] * LACTIC ACID - SINGLE (10/16/2024 4:00 AM CDT) Only the most recent of3 resultswithin the time period is included. LACTIC ACID VENOUS 1.9 0.4 - 2.0 MMOL/L 10/16/2024 4:54 AM CDT [facility] 10/16/2024 4:00 AM CDT Balaji Bartlett MD LABORATORY Final Result Performing Organization Address [facility] Co de Phone Number [facility] [address] [place] [address], [place] [phone] * BLOOD TYPING, ABO AND RH (10/15/2024 8:00 PM SCIENCE EDUCATION PROFESSOR) ABO/RH A POSITIVE 10/15/2024 8:43 PM SCIENCE EDUCATION PROFESSOR [facility] 10/15/2024 8:00 PM SCIENCE EDUCATION PROFESSOR Balaji Bartlett MD BLOOD BANK TEST ORDERABLES F inal Result Performing Organization Address City/[facility] Co de Phone Number [facility] [address] [place] [address], [place] [phone] * (ABNORMAL) TROPONIN, QUANT (10/15/2024 8:00 PM SCIENCE EDUCATION PROFESSOR) Only the most recent of6 resultswithin the time period is included. TROPONIN I HIGH SENSITIVITY 240(H) 0 - 53 ng/L 10/15/2024 8:51 PM SCIENCE EDUCATION PROFESSOR [facility] 10/15/2024 8:00 PM SCIENCE EDUCATION PROFESSOR Balaji Bartlett MD LABORATORY Final Result [facility] [address] [place] [address], [place] [phone] * CT ABD+PEL WO CON (10/15/2024 6:00 PM SCIENCE EDUCATION PROFESSOR) Only the most recent of2 resultswithin the time period is included. Anatomical Region Laterality Modality Abdomen Computed Tomogra phy 10/15/2024 6:13 PM SCIENCE EDUCATION PROFESSOR Impressions 10/15/2024 6:26 PM SCIENCE EDUCATION PROFESSOR IMPRESSION: 1. New bibasilar multifocal pneumonia. 2. [...] 10/15/2024 6:13 PM Narrative 10/15/2024 6:26 PM SCIENCE EDUCATION PROFESSOR [facility] [address] [place], [place] [address] EXAMINATION: CT ABD+PEL WO CON DATE: 10/15/2024 [...] Procedure Note Christopher Flaherty MD - 10/15/[address] [address] EXAMINATION: CT ABD+PEL WO CON DATE: 10/15/2024 [...] (ABNORMAL) PRO-BRAIN NATRIURETIC PEPTIDE (10/15/2024 3:43 PM SCIENCE EDUCATION PROFESSOR) Only the most recent of3 resultswithin the time period is included. PRO-B TYPE NATRIURETIC PEPTIDE 11,053(H) <125 PG/ML 10/15/2024 4:32 PM SCIENCE EDUCATION PROFESSOR [facility] Comment: AGE INDEPENDENT: <300 PG/ML HAS [...] 72% FOR ACUTE CHF. 10/15/2024 3:43 PM SCIENCE EDUCATION PROFESSOR Segundo Storm MD LABORATORY Final Result [facility] [address] [place] [address], [phone] * TYPE & SCREEN (10/15/2024 3:43 PM SCIENCE EDUCATION PROFESSOR) Only the most recent of2 resultswithin the time period is included. UNITS ORDERED 1 10/16/2024 12:27 AM SCIENCE EDUCATION PROFESSOR [facility] ABO/RH A POSITIVE 10/15/2024 6:59 PM SCIENCE EDUCATION PROFESSOR [facility] ANTIBODY SCREEN NEGATIVE 6:59 PM SCIENCE EDUCATION PROFESSOR [facility] SAMPLE EXPIRATION 10/18/2024,2359 10/15/2024 3:57 PM [facility] BLOOD UNIT NUMBER [id number] 10/16/2024 12:27 AM [facility] PRODUCT: PC LEUKOPOOR 10/16/2024 12:27 AM [facility] UNIT DIVISION 00 10/16/2024 12:27 AM [facility] BLOOD UNIT STATUS TRANSFUSED,FINAL 10/17/2024 7:08 AM T [facility] ISSUE DATE/TIME [id number] 025 7:08 AM [facility] PRODUCT CODE [id number] 10/17/2024 7:08 AM [facility] ABO/RH Unit A POS 10/17/2024 7:08 AM [facility] ABO/RH UNIT ISBT CODE 6200 10/17/2024 7:08 AM [facility] BLOOD UNIT EXPIRATION DATE [id number] 10/17/2024 7:08 AM [facility] TRANSFUSION STATUS OK TO TRANSFUSE 10/16/2024 12:27 AM [facility] CROSSMATCH COMPATIBLE-EXM 10/16/2024 12:27 AM [facility] 10/15/2024 3:43 PM SCIENCE EDUCATION PROFESSOR us Segundo Storm MD BLOOD BANK TEST ORDERABLES Fin al Result [facility] [address] [place] [address], [phone] * (ABNORMAL) HEPATIC FUNCTION PANEL (10/15/2024 3:43 PM SCIENCE EDUCATION PROFESSOR) BILIRUBIN TOTAL S/P/B 0.3 0.2 - 1.0 MG/DL 10/15/2024 4:32 PM SCIENCE EDUCATION PROFESSOR [facility] BILIRUBIN DIRECT S/P/B <0.1 0.0 - 0.2 MG/DL 10/15/2024 4:32 PM SCIENCE EDUCATION PROFESSOR [facility] ALKALINE PHOSPHATASE S/P/B 117(H) 39 - 100 U/L 10/15/2024 4:32 PM SCIENCE EDUCATION PROFESSOR [facility] AST 18 15 - 37 U/L 10/15/2024 4:32 PM SCIENCE EDUCATION PROFESSOR [facility] ALT 17 13 - 56 U/L 10/15/2024 4:32 PM SCIENCE EDUCATION PROFESSOR [facility] TOTAL PROTEIN S/P/B 6.8 6.4 - 8.2 G/DL 10/15/2024 4:32 PM SCIENCE EDUCATION PROFESSOR [facility] ALBUMIN S/P/B 1.5(L) 3.4 - 5.0 G/DL 10/15/2024 4:32 PM SCIENCE EDUCATION PROFESSOR [facility] 10/15/2024 3:43 PM SCIENCE EDUCATION PROFESSOR Segundo Storm MD LABORATORY Final Result Performing Organization Address [facility] Co de Phone Number [facility] [address] [place] [address], [phone] * (ABNORMAL) THYROID STIM HORMONE, TSH (10/15/2024 3:43 PM SCIENCE EDUCATION PROFESSOR) TSH 3.950(H) 0.358 - 3.740 uIU/ML 10/15/2024 4:32 PM SCIENCE EDUCATION PROFESSOR [facility] Comment: ASSAY PERFORMED BY CHEMILUMINESCENCE METHODOLOGY USING SIEM[employer] DIM[employer] VISTA REAGENT. PATIENT RESULTS DETERMINED BY ASSAYS USING DIFFERENT MANUFACTURERS FOR METHODS MAY NOT BE COMPARABLE. 10/15/2024 3:43 PM SCIENCE EDUCATION PROFESSOR Segundo Storm MD LABORATORY Final Result Performing Organization Address [facility] Co de Phone Number [facility] [address] [place] [address], [place] [phone] * (ABNORMAL) CALCIUM, IONIZED (10/15/2024 3:43 PM SCIENCE EDUCATION PROFESSOR) CALCIUM IONIZED 1.12(L) 1.15 - 1.33 MMOL/L 10/15/2024 3:55 PM SCIENCE EDUCATION PROFESSOR [facility] 10/15/2024 3:43 PM SCIENCE EDUCATION PROFESSOR Segundo Storm MD LABORATORY Final Result [facility] [address] [place] [address], [place] [phone] * US RETROPERITONEAL LTD (10/15/2024 3:21 PM SCIENCE EDUCATION PROFESSOR) Anatomical Region Laterality Modality Renal Ultrasound 10/15/2024 3:41 PM SCIENCE EDUCATION PROFESSOR Impressions 10/15/2024 3:49 PM SCIENCE EDUCATION PROFESSOR Impression: 1. Normal appearance of the right [...] 10/15/2024 3:41 PM Narrative 10/15/2024 3:49 PM SCIENCE EDUCATION PROFESSOR [facility] [address] [place], [place] [address] Examination: US RETROPERITONEAL LTD Exam Date/Time: 10/15/2024 [...] Procedure Note Christopher Flaherty MD - 10/15/[address] [address] Examination: US RETROPERITONEAL LTD Exam Date/Time: 10/15/2024 [...] USE ECHOCARDIOGRAM W CON (10/15/2024 2:34 PM SCIENCE EDUCATION PROFESSOR) Anatomical Region Laterality Modality NA Echocardiogram 10/15/2024 1:54 PM SCIENCE EDUCATION PROFESSOR Narrative 10/16/2024 10:33 AM CDT Echocardiography Report Pat.Name: CEM MARSHALL Pat.ID: [id number] .Date: 10/15/2024 Refer.MD: [id number] LISSY Morley EWDPROV EWDPROV Exam Time: 1:54:00 PM Study Type:ECHO W/CONTRAST COMPLETE Height: 65 in Weight: 260 lb BSA: 2.21 m2 Age: 4 1975,48Y Sex: F BP: 93/65 HR: 120 bpm Sonogrphr: Adam Gregory RDCS Pat. Stat.:Inpatient Room: [place] [address] CPT - 4: C8929 Reason for Study:Hypoxia [...] Mass 2D Value 234 g LV Mass [id number] Value 106 g/m2 Right Ventricle Right Ventricle [...] 3.2 cm Right Ventricle 2.4 cm Major [place] 7.5 cm MMODE TA Tricuspid Annul 2.22 cm <Electronic Signature> 10/16/2024 10:33 AM Rose Conn M.D. Procedure Note Rose Conn MD - 10/16/2024 Echocardiography Report Pat.Name: CEM MARSHALL Pat.ID: [id number] .Date: 10/15/2024 Refer.: [id number] LISSY Morley EWDPROV EWDPROV Exam Time: 1:54:00 PM Study Type:ECHO W/CONTRAST COMPLETE Height: 65 in Weight: 260 lb BSA: 2.21 m2 Age: 4 1975,48Y Sex: F BP: 93/65 HR: 120 bpm Sonogrphr: Adam Gregory [facility] Pat. Stat.:Inpatient Room: [place] [address] CPT - 4: C8929 Reason for Study:Hypoxia [...] Mass 2D Value 234 g LV Mass [id number] Value 106 g/m2 Right Ventricle Right Ventricle [...] 3.2 cm Right Ventricle 2.4 cm Major [place] 7.5 cm MMODE TA Tricuspid Annul 2.22 cm <Electronic Signature> 10/16/2024 10:33 AM Rose Conn M.D. us Segundo Storm MD ECHO Final Result * CULTURE, RESPIRATORY W/ GRAM STAIN (10/15/2024 2:20 PM SCIENCE EDUCATION PROFESSOR) SPEC DESCRIPTION SPUTUM, INDUCED 10/15/2024 2:26 PM SCIENCE EDUCATION PROFESSOR [facility] SPECIAL REQUESTS NO SPECIAL REQUEST 10/15/2024 2:26 PM SCIENCE EDUCATION PROFESSOR [facility] GRAM STAIN RESULT <10 EPITHELIAL CELLS PER LPF 10/15/2024 3:23 PM SCIENCE EDUCATION PROFESSOR [facility] GRAM STAIN RESULT 10-25 NEUTROPHILS PER LPF 10/15/2024 3:23 PM SCIENCE EDUCATION PROFESSOR [facility] GRAM STAIN RESULT MANY GRAM POSITIVE RODS 10/15/2024 3:23 PM SCIENCE EDUCATION PROFESSOR [facility] GRAM STAIN RESULT MANY GRAM POSITIVE COCCI IN PAIRS, CHAINS, AND CLUSTERS 10/15/2024 3:23 PM SCIENCE EDUCATION PROFESSOR [facility] GRAM STAIN RESULT MODERATE BUDDING YEAST CELLS 10/15/2024 3:23 PM SCIENCE EDUCATION PROFESSOR [facility] GRAM STAIN RESULT FEW GRAM NEGATIVE RODS 10/15/2024 3:23 PM SCIENCE EDUCATION PROFESSOR [facility] CULTURE RESULT MANY MICROCOCCUS SPECIES 10/17/2024 9:22 AM CDT [facility] CULTURE RESULT FEW ALPHA STREPTOCOCCUS 10/17/2024 9:22 AM CDT [facility] CULTURE RESULT FEW YEAST 10/17/2024 9:22 AM CDT [facility] SPUTUM SPECIMEN OBTAINED BY SPUTUM INDUCTION / Unknown 10/15/2024 2:20 PM SCIENCE EDUCATION PROFESSOR 10/15/2024 2:38 PM SCIENCE EDUCATION PROFESSOR us Balaji Bartlett MD MICROBIOLOGY - GENERAL ORDER JAROD Final Result [facility] [address] [place] [address], [place] [phone] * BIOFIRE PCR UPPER RESPIRATORY PROFILE (RESPIRATORY PCR PANEL 2) (10/15/2024 1:32 PM SCIENCE EDUCATION PROFESSOR) ADENOVIRUS PCR (RESP) NOT DETECTED NOT DETECTED 10/15/2024 2:49 PM SCIENCE EDUCATION PROFESSOR [facility] CORONAVIRUS 229E PCR (RESP) NOT DETECTED NOT DETECTED 10/15/2024 2:49 PM SCIENCE EDUCATION PROFESSOR [facility] CORONAVIRUS HKU1 PCR (RESP) NOT DETECTED NOT DETECTED 10/15/2024 2:49 PM SCIENCE EDUCATION PROFESSOR [facility] CORONAVIRUS NL63 PCR (RESP) NOT DETECTED NOT DETECTED 10/15/2024 2:49 PM SCIENCE EDUCATION PROFESSOR [facility] CORONAVIRUS OC43 PCR (RESP) NOT DETECTED NOT DETECTED 10/15/2024 2:49 PM SCIENCE EDUCATION PROFESSOR [facility] METAPNEUMOVIRUS PCR (RESP) NOT DETECTED NOT DETECTED 10/15/2024 2:49 PM SCIENCE EDUCATION PROFESSOR [facility] RHINOVIRUS/ENTEROV IRUS PCR (RESP) NOT DETECTED NOT DETECTED 10/15/2024 2:49 PM SCIENCE EDUCATION PROFESSOR [facility] INFLUENZA A PCR (RESP) NOT DETECTED NOT DETECTED 10/15/2024 2:49 PM SCIENCE EDUCATION PROFESSOR [facility] INFLUENZA B PCR (RESP) NOT DETECTED NOT DETECTED 10/15/2024 2:49 PM SCIENCE EDUCATION PROFESSOR [facility] PARAINFLUENZA 1 PCR (RESP) NOT DETECTED NOT DETECTED 10/15/2024 2:49 PM SCIENCE EDUCATION PROFESSOR [facility] PARAINFLUENZA 2 PCR (RESP) NOT DETECTED NOT DETECTED 10/15/2024 2:49 PM SCIENCE EDUCATION PROFESSOR [facility] PARAINFLUENZA 3 PCR (RESP) NOT DETECTED NOT DETECTED 10/15/2024 2:49 PM SCIENCE EDUCATION PROFESSOR [facility] PARAINFLUENZA 4 PCR (RESP) NOT DETECTED NOT DETECTED 10/15/2024 2:49 PM SCIENCE EDUCATION PROFESSOR [facility] RSV PCR (RESP) NOT DETECTED NOT DETECTED 10/15/2024 2:49 PM SCIENCE EDUCATION PROFESSOR [facility] B PARAPERTUSIS PCR (RESP) NOT DETECTED NOT DETECTED 10/15/2024 2:49 PM SCIENCE EDUCATION PROFESSOR [facility] BORDETELLA PERTUSSIS PCR (RESP) NOT DETECTED NOT DETECTED 10/15/2024 2:49 PM SCIENCE EDUCATION PROFESSOR [facility] CHLAMYDOPHILA PNEUMONIAE PCR (RESP) NOT DETECTED NOT DETECTED 10/15/2024 2:49 PM SCIENCE EDUCATION PROFESSOR [facility] MYCOPLASMA PNEUMONIAE PCR (RESP) NOT DETECTED NOT DETECTED 10/15/2024 2:49 PM SCIENCE EDUCATION PROFESSOR [facility] CORONAVIRUS SARS COV 2 PCR (RESP) NOT DETECTED NOT DETECTED 10/15/2024 2:49 PM SCIENCE EDUCATION PROFESSOR [facility] NASOPHARYNGEAL SWAB / Unknown 10/15/2024 1:32 PM SCIENCE EDUCATION PROFESSOR us Balaji Bartlett MD MICROBIOLOGY - GENERAL ORDER JAROD Final Result [facility] [address] [place] [address], [id number] * MRSA SCREENING (10/15/2024 12:54 PM SCIENCE EDUCATION PROFESSOR) SPECIMEN SOURCE RESPIRATORY, NOSE 10/15/2024 12:53 PM SCIENCE EDUCATION PROFESSOR [facility] MRSA BY PCR NASAL METHICILLIN RESISTANT STAPH AUREUS NOT DETECTED METHICILLIN RESISTANT STAPH AUREUS NOT DETECTED 10/17/2024 11:28 AM CDT [facility] NASAL STRUCTURE / Unknown 10/15/2024 12:54 PM SCIENCE EDUCATION PROFESSOR Segundo Storm MD MICROBIOLOGY - GENERAL ORDERAB LES Final Result Performing Organization Address [facility] de Phone Number [facility] [address] [place] [address], [place] [phone] * CULTURE, URINE (10/15/2024 12:53 PM SCIENCE EDUCATION PROFESSOR) Only the most recent of3 resultswithin the time period is included. SPEC DESCRIPTION URINE CLEAN CATCH 10/15/2024 12:57 PM SCIENCE EDUCATION PROFESSOR [facility] SPECIAL REQUESTS NO SPECIAL REQUEST 10/15/2024 12:57 PM SCIENCE EDUCATION PROFESSOR [facility] CULTURE RESULT >25,000 TO 50,000 CFU/mL YEAST 10/18/2024 7:42 AM CDT [facility] URINE SPECIMEN OBTAINED BY CLEAN CATCH PROCEDURE / Unknown 10/15/2024 12:53 PM SCIENCE EDUCATION PROFESSOR 10/15/2024 6:41 PM SCIENCE EDUCATION PROFESSOR Segundo Storm MD MICROBIOLOGY - GENERAL ORDERAB LES Final Result Performing Organization Address [facility] Co de Phone Number [facility] [address] [place] [address], [place] [phone] * CARDIAC PROFILE (CK,CKMB,TROP) (10/15/2024 9:20 AM SCIENCE EDUCATION PROFESSOR) CPK 33 26 - 192 U/L 10/15/2024 9:47 AM SCIENCE EDUCATION PROFESSOR [facility] CK-MB <1.0 0.5 - 3.6 NG/ML 10/15/2024 7:22 PM SCIENCE EDUCATION PROFESSOR [facility] TROPONIN I HIGH SENSITIVITY 41 0 - 51 ng/L 10/15/2024 9:47 AM SCIENCE EDUCATION PROFESSOR [facility] 10/15/2024 9:20 AM SCIENCE EDUCATION PROFESSOR us Elida Ma NP LABORATORY Final Result [facility] [address] [place] [address], [facility] [address] [place] [address], [place] [phone] * (ABNORMAL) Blood gas, venous (10/15/2024 8:37 AM SCIENCE EDUCATION PROFESSOR) Only the most recent of2 resultswithin the time period is included. PH VENOUS 7.36 7.32 - 7.43 10/15/2024 8:53 AM [facility] PCO2 VENOUS 49.0 MMHG 10/15/2024 8:53 AM [facility] Comment:NO REFERENCE RANGE H BEEN ESTABLISHED PO2 VENOUS <30.0 MM HG 10/15/2024 8:53 AM [facility] Comment:NO REFERENCE RANGE H BEEN ESTABLISHED TOTAL CO2 VENOUS 29.2(H) 22.0 - 26.0 MMOL/L 10/15/2024 8:53 AM [facility] BASE EXCESS VENOUS 1.5 MMOL/L 10/15/2024 8:53 AM [facility] Comment:NO REFERENCE RANGE H BEEN ESTABLISHED O2 SAT VENOUS NOT CALCULATED % 025 8:53 AM [facility] Comment:NO REFERENCE RANGE H BEEN ESTABLISHED BICARB VENOUS 27.7 22.0 - 29.0 MMOL/L 10/15/2024 8:53 AM [facility] O2 ADMIN VENOUS 5L 8:37 AM [facility] 10/15/2024 8:37 AM SCIENCE EDUCATION PROFESSOR us Lorenza Inman MD LABORATORY Final Resu lt Performing Organization Address [facility] Co de Phone Number [facility] [address] [place] [phone], * (ABNORMAL) IRON SAT PANEL (IRON,IBC,%SAT) (10/15/2024 4:24 AM SCIENCE EDUCATION PROFESSOR) IRON 33(L) 50 - 170 MCG/DL 10/15/2024 5:13 AM SCIENCE EDUCATION PROFESSOR [facility] IRON BINDING CAPACITY 197(L) 250 - 450 MCG/DL 10/15/2024 5:13 AM SCIENCE EDUCATION PROFESSOR [facility] IRON SATURATION 17 % 5:13 AM SCIENCE EDUCATION PROFESSOR [facility] Comment:REFERENCE RANGE NOT ESTABLISHED 10/15/2024 4:24 AM SCIENCE EDUCATION PROFESSOR us Issa Blackman MD LABORATORY Final Result Performing Organization Address [facility] Co de Phone Number [facility] [address] [place] [phone], * VITAMIN B-12 (10/15/2024 4:24 AM SCIENCE EDUCATION PROFESSOR) Pathologist [facility] VITAMIN B12 S/P/B 507 193 - 986 PG/ML 10/15/2024 2:10 PM SCIENCE EDUCATION PROFESSOR [facility] 10/15/2024 4:24 AM SCIENCE EDUCATION PROFESSOR us Issa Blackman MD LABORATORY Final Result Performing Organization Address [facility] Co de Phone Number [facility] [address] [place] [address], [place] [phone] * (ABNORMAL) RETICULOCYTE CT, AUTO (10/15/2024 4:24 AM SCIENCE EDUCATION PROFESSOR) RETICULOCYTE COUNT 6.4(H) 0.6 - 2.3 % 10/15/2024 5:01 AM SCIENCE EDUCATION PROFESSOR [facility] ABSOLUTE RETICULOCYTE 0.15(H) 0.02 - 0.10 x10'6/uL 10/15/2024 5:01 AM [facility] IMMATURE RETIC FRACTION 32.8(H) 3.0 - 15.9 % 10/15/2024 5:01 AM [facility] RETIC HGB 24.2(L) 28.0 - 35.0 PG 10/15/2024 5:01 AM [facility] 10/15/2024 4:24 AM SCIENCE EDUCATION PROFESSOR us Issa Blackman MD LABORATORY Final Result [facility] [address] [place] [address], * (ABNORMAL) COMPREHENSIVE METABOLIC PANEL (10/15/2024 4:24 AM SCIENCE EDUCATION PROFESSOR) Only the most recent of6 resultswithin the time period is included. SODIUM S/P/B 138 136 - 145 MMOL/L 10/15/2024 4:49 AM [facility] POTASSIUM S/P/B 4.8 3.5 - 5.1 MMOL/L 10/15/2024 4:49 AM [facility] CHLORIDE S/P/B 104 98 - 107 MMOL/L 10/15/2024 4:49 AM [facility] CO2 27.4 21.0 - 32.0 MMOL/L 10/15/2024 4:49 AM [facility] GLUCOSE 175(H) 70 - 99 MG/DL 10/15/2024 4:49 AM [facility] Comment: FASTING GLUCOSE 100 TO 125 MG/DL IS CONSISTENT WITH IMPAIRED FASTING GLUCOSE. FASTING GLUCOSE >125 MG/DL IS CONSISTENT WITH DIABETES. RANDOM GLUCOSE >200 MG/DL WITH HYPERGLYCEMIC SYMPTOMS IS CONSISTENT WITH DIABETES. PER ADA GUIDELINES BUN 38(H) 6 - 24 MG/DL 10/15/2024 4:49 AM [facility] CREATININE S/P/B 1.80(H) 0.55 - 1.02 MG/DL 10/15/2024 4:49 AM [facility] CALCIUM S/P/B 8.2(L) 8.4 - 10.5 MG/DL 10/15/2024 4:49 AM [facility] BILIRUBIN TOTAL S/P/B 0.2 0.2 - 1.0 MG/DL 10/15/2024 4:49 AM [facility] Comment: THIS ASSAY IS NOT RECOMMENDED FOR PATIENTS UNDERGOING TREATMENT WITH ELTROMBOPAG DUE TO THE POTENTIAL FOR FALSELY ELEVATED RESULTS. ALKALINE PHOSPHATASE S/P/B 115(H) 39 - 100 U/L 10/15/2024 4:49 AM [facility] AST 12(L) 15 - 37 U/L 10/15/2024 4:49 AM [facility] ALT 20 14 - 59 U/L 10/15/2024 4:49 AM [facility] TOTAL PROTEIN S/P/B 6.4 6.4 - 8.2 G/DL 10/15/2024 4:49 AM [facility] ALBUMIN S/P/B 1.4(L) 3.4 - 5.0 G/DL 10/15/2024 4:49 AM [facility] ANION GAP 6.6 5.0 - 15.0 MMOL/L 10/15/2024 4:49 AM [facility] OSMOLALITY (CALC) 299 MOSM/KG 025 4:49 AM [facility] Comment:REFERENCE RANGE NOT ESTABLISHED GFR ESTIMATE 34(L) >89 ML/MIN/1. 73 M2 10/15/2024 4:49 AM [facility] GFR NOTES GFR REFERENCE S: 10/15/2024 4:49 AM [facility] Comment: THE ESTIMATED GFR IS [...] FAILURE: <15 ml/min/1.73 m2 10/15/2024 4:24 AM SCIENCE EDUCATION PROFESSOR Matt Mixon DO LABORATORY Final Result Performing Organization Address City/[facility]/ZIP Co de Phone Number [facility] [address] [place] [address], [place] [phone] * FOLIC ACID SERUM (10/15/2024 4:24 AM SCIENCE EDUCATION PROFESSOR) FOLATE 6.9 3.1 - 17.5 NG/ML 10/15/2024 2:10 PM SCIENCE EDUCATION PROFESSOR [facility] 10/15/2024 4:24 AM SCIENCE EDUCATION PROFESSOR Issa Blackman MD LABORATORY Final Result Performing Organization Address [facility] Co de Phone Number [facility] [address] [place] [address], [place] [phone] * FERRITIN (10/15/2024 4:24 AM SCIENCE EDUCATION PROFESSOR) FERRITIN 195.2 8 - 252 NG/ML 10/15/2024 5:27 AM SCIENCE EDUCATION PROFESSOR [facility] 10/15/2024 4:24 AM SCIENCE EDUCATION PROFESSOR Issa Blackman MD LABORATORY Final Result Performing Organization Address City/[facility] Co de Phone Number [facility] [address] [place] [address], [place] [phone] * IV PLACEMENT (10/14/2024 7:00 PM SCIENCE EDUCATION PROFESSOR) Narrative Jeffery Escobar CRNA - 10/14/2024 7:00 PM SCIENCE EDUCATION PROFESSOR Jeffery Escobar CRNA 10/14/2024 7:21 PM Peripheral [...] Patient Tolerance: Tolerated well us Jeffery Escobar DIRECTOR OF PRODUCT DEVELOPMENT ND ANESTHESIA Final Res ult * XR CHEST PA+LAT (10/14/2024 5:26 PM SCIENCE EDUCATION PROFESSOR) Anatomical Region Laterality Modality Chest Radiographic Marya ging 10/14/2024 5:26 PM SCIENCE EDUCATION PROFESSOR Impressions 10/14/2024 5:27 PM SCIENCE EDUCATION PROFESSOR Impression: 1. Nonspecific left basilar opacity. 2. Pulmonary vascular congestion. Referred By: Interpreted By: Tyron Fitzgerald MD, 10/14/2024 5:26 PM Narrative 10/14/2024 5:27 PM SCIENCE EDUCATION PROFESSOR [address] [place] [address] Examination: Chest 2 View History: Shortness of [...] Procedure Note Tyron Fitzgerald MD - 10/14/[address] [place] [address] Examination: Chest 2 View History: Shortness of [...] (ABNORMAL) ARTERIAL BLOOD GAS (10/14/2024 4:56 PM SCIENCE EDUCATION PROFESSOR) Only the most recent of3 resultswithin the time period is included. PH ARTERIAL 7.41 7.35 - 7.45 10/14/2024 5:01 PM SCIENCE EDUCATION PROFESSOR [facility] PCO2 41.0 35.0 - 45.0 MMHG 10/14/2024 5:01 PM [facility] PO2 85.0 83 - 108 MMHG 10/14/2024 5:01 PM [facility] TOTAL CO2 ARTERIAL 27.3(H) 19.0 - 24.0 MMOL/L 10/14/2024 5:01 PM [facility] BASE EXCESS 1.2 0 - 3 MMOL/L 10/14/2024 5:01 PM [facility] O2 SATURATION 97 94.0 - 98.0 % 10/14/2024 5:01 PM [facility] BICARB ARTERIAL 26.0 21.0 - 28.0 MMOL/L 10/14/2024 5:01 PM [facility] SILVIA TEST OK 10/14/2024 4:56 PM SCIENCE EDUCATION PROFESSOR [facility] O2 ADMIN ARTERIAL 2L NC 10/14/2024 4:56 PM SCIENCE EDUCATION PROFESSOR [facility] DRAW SITE ARTERIAL RT RADIAL 10/14/2024 4:56 PM [facility] 10/14/2024 4:56 PM SCIENCE EDUCATION PROFESSOR us Matt Mixon DO LABORATORY Final Result [facility] [address] [place] [address], * (ABNORMAL) BETA-HYDROXYBUTYRATE (09/12/2024 9:06 PM SCIENCE EDUCATION PROFESSOR) BETA-HYDROXYBU TYRATE 5.1(H) 0.0 - 0.3 MMOL/L 09/12/2024 9:13 PM SCIENCE EDUCATION PROFESSOR [facility] 09/12/2024 9:06 PM SCIENCE EDUCATION PROFESSOR Chad Vazquez DO LABORATORY Final Result [address] [address], * PARTIAL THROMBOPLASTIN TIME,PTT (09/12/2024 8:20 PM SCIENCE EDUCATION PROFESSOR) Only the most recent of5 resultswithin the time period is included. Pathologist [facility] PTT 34.3 25.1 - 36.5 SEC 09/12/2024 8:35 PM SCIENCE EDUCATION PROFESSOR [facility] 09/12/2024 8:20 PM SCIENCE EDUCATION PROFESSOR Malena Cortez MD LABORATORY Final Resul t Performing Organization Address City/[facility]/ZIP Co de Phone Number [phone] [place] [address], * CT HEAD WO CON (09/12/2024 6:27 PM SCIENCE EDUCATION PROFESSOR) Anatomical Region Laterality Modality Head Computed Tomogra phy 09/12/2024 6:54 PM SCIENCE EDUCATION PROFESSOR Impressions 09/12/2024 6:58 PM SCIENCE EDUCATION PROFESSOR IMPRESSION: No definite CT evidence for acute intracranial abnormality. Please note that CT has limited sensitivity for the detection of acute ischemia. Referred By: Interpreted By: Tyron Fitzgerald MD, 09/12/2024 6:54 PM Narrative 09/12/2024 6:58 PM SCIENCE EDUCATION PROFESSOR [address] [place] [address] EXAMINATION: CT of the head CLINICAL HISTORY: [...] Procedure Note Tyron Fitzgerald MD - 09/12/[address] [place] [address] EXAMINATION: CT of the head CLINICAL HISTORY: [...] CT CHEST+ABD+PEL WO CON (09/11/2024 1:56 PM SCIENCE EDUCATION PROFESSOR) Anatomical Region Laterality Modality Chest, Abdomen, Pelvis Computed Tomography 09/11/2024 2:02 PM SCIENCE EDUCATION PROFESSOR Impressions 09/11/2024 2:24 PM SCIENCE EDUCATION PROFESSOR IMPRESSION: 1. Scattered small bilateral groundglass infiltrates, likely infectious/inflammatory. Follow-up in 3-6 months for surveillance is suggested. 2. Otherwise, no acute intrathoracic, intra-abdominal or intrapelvic process identified. 3. Coronary artery disease. 4. Cholelithiasis. Referred By: Interpreted By: Jeffery Prado MD, 09/11/2024 2:02 PM Narrative 09/11/2024 2:24 PM SCIENCE EDUCATION PROFESSOR [address] [place] [address] Examination: CT of the chest, abdomen and [...] Procedure Note Jeffery Prado MD - 09/11/2024 [facility] [address] [place] [address] Examination: CT of the chest, abdomen and [...] By: Jeffery Prado MD, 09/11/2024 2:02 PM Malena Cortez MD CT Final Resul t * LACTIC ACID W REFLEX (SEPSIS) (09/11/2024 1:39 PM SCIENCE EDUCATION PROFESSOR) LACTIC ACID VENOUS 1.2 0.4 - 2.0 MMOL/L 09/11/2024 2:08 PM SCIENCE EDUCATION PROFESSOR [facility] 09/11/2024 1:39 PM SCIENCE EDUCATION PROFESSOR us Malena Cortez MD LABORATORY Final Resul t [facility] [address] [place] [address], * AMYLASE (08/19/2024 8:01 AM SCIENCE EDUCATION PROFESSOR) AMYLASE S/P/B 43 25 - 115 UNITS/L 08/19/2024 8:27 AM SCIENCE EDUCATION PROFESSOR [facility] 08/19/2024 8:01 AM SCIENCE EDUCATION PROFESSOR us Marciano Mora DO LABORATORY Final Result Performing Organization Address [facility]/ZIP Co de Phone Number [facility] [address] [place] [address], * LIPASE (08/19/2024 8:01 AM SCIENCE EDUCATION PROFESSOR) LIPASE 50 16 - 77 UNITS/L 08/19/2024 8:27 AM [facility] 08/19/2024 8:01 AM SCIENCE EDUCATION PROFESSOR us Marciano Mora DO LABORATORY Final Result Performing Organization Address [facility] de Phone Number [facility] [address] [place] [address], * LIPID PANEL (09/15/2023 9:04 AM SCIENCE EDUCATION PROFESSOR) CHOLESTEROL 181 MG/DL 09/15/2023 12:44 PM [facility] Comment:DESIRABLE: <200 TRIGLYCERIDES 196 MG/DL 09/15/2023 12:44 PM [facility] Comment:150-199 BORDERLINE H IGH HDL 55 >49 MG/DL 09/15/2023 12:44 PM [facility] LDL-C 87 MG/DL 09/15/2023 12:44 PM [facility] Comment:<100 OPTIMAL VLDL CALCULATION 39 MG/DL 09/15/19 12:44 PM [facility] Comment:REFERENCE RANGE NOT ESTABLISHED CHOL/HDL RATIO 3.3 09/15/2023 12:44 PM [facility] Comment:REFERENCE RANGE NOT ESTABLISHED LDL/HDL 1.6 09/15/2023 12:44 PM SCIENCE EDUCATION PROFESSOR [facility] Comment:REFERENCE RANGE NOT ESTABLISHED NON HDL CHOLESTEROL 126 MG/DL 09/15/2023 12:44 PM SCIENCE EDUCATION PROFESSOR [facility] Comment:REFERENCE RANGE NOT ESTABLISHED 09/15/2023 9:04 AM SCIENCE EDUCATION PROFESSOR Rose Conn MD LABORATORY Final Result [facility] [address] [place] [address], [place] [phone] [id number] from Last 3 Months or Most Recently Relevant to Health Maintenance Additional Health Concerns Infection Onset Date Last Indicated MRSA Comment:Added from external infection. Source: [place], [place] [employer]. 12/24/2017 Insurance [facility] MEDICAID Advance Directives * POLST (Latest Code [...] 10:10 PM 10/15/2024 12:14 PM Care Teams Hand Finisher Relationship Specialty Start Date End Date Ace Honeycutt MD [address] [place] [phone] PCP - General FAMILY PRACTICE 04/29/24 Rose Conn MD [address] [place] [address] Consulting Physician CARDIOVASCULAR DISEASE 09/07/23 Keith Goodwin MD [address] [place] [address] Consulting Physician INTERNAL MEDICINE 09/22/23
--- OUTSIDE RECORDS SUMMARY | 2024-10-28 13:16 | XMS_ITS | Clinical Summary ---
Author Organization [facility] Address [address] [place] [address] Phone Care Team Providers Care Lumpia Wrapper Maker Name Role Phone ShadyDonte dominguez Rochelle [facility] Primary Care Provider [phone] Allergies Active Allergy Reactions Criticality Noted Date Comments Cephalexin Rash 10/06/2024 Codeine Itching 10/06/2024 Erythromycin Vomiting 10/06/2024 Phyllantus Niruri Swelling 10/06/2024 Medications HYDROcodone-acet aminophen (NORCO) 10-325 MG Tablet Take 1 Tablet by mouth every 6 hours as needed for Mild or more severe pain. Active Fluticasone Furoate 50 MCG/ACT AEROSOL POWDER, BREATH ACTIVATED 1 [place] by Nasal route daily. Active OMEPRAZOLE PO [...] Date Type Department Care Team Description 10/28/2024 1:30 PM CDT Home Care Visit [address] [address] Brooke Burt OTA OT - HOME VISIT 10/28/2024 9:30 AM CDT Home Care Visit [address] [address] Mai Bass RN SN - PRIORITY VISIT 10/27/2024 10:00 AM CDT Home Care Visit [address] [address] Elisa Pollack PTA PT - HOME VISIT 10/25/2024 2:30 PM CDT Home Care Visit [address] [address] Deepika Ely, PURCHASING INTERN-SPEECH LANGUAGE PATHOLOGIST PURCHASING INTERN - INITIAL EVALUATION 10/25/2024 1:30 PM CDT Home Care Visit [address] [address] Maggie Murguia, PT PT - INITIAL EVALUATION 10/25/2024 12:30 PM CDT [place] [id number] Kathrin Mcmullen OT OT - INITIAL EVALUATION 10/24/2024 2:00 AM CDT Home Care Visit [address] [address] Mai Bass, RN SN - OASIS RESUMPTION OF CARE 10/24/2024 Plan of Care Documentation [address] [address] 10/24/20[place] [address] Kami Mccoy, RN 10/23/2024 [place] [address] Deepika Keith, RN Appointment 10/21/[address] [address] Ariana Callahan, RN visits 10/19/2024 Home Care Visit [place] [id number] Mehnaz Hilario RN SN - OASIS TRANSFER W/OUT DC 10/14/2024 11:00 AM FLOWER MAKER Home Care Visit [address] [address] Brooke Burt OTA OT - HOME VISIT 10/14/2024 11:00 AM FLOWER MAKER Home Care Visit [address] [address] Kathleen Clement, VAULT CLERK PT - HOME VISIT 10/13/2024 1:30 PM FLOWER MAKER Home Care Visit [address] [address] Mai Bass, RN SN - PRIORITY VISIT 10/13/2024 10:00 AM FLOWER MAKER Home Care Visit [address] [address] Mercedes hPam, AUTOMATIC SERGING MACHINE OPERATOR AUTOMATIC SERGING MACHINE OPERATOR - INITIAL EVALUATION 10/12/2024 12:30 PM FLOWER MAKER Home Care Visit [address] [address] Saima Busby, VAULT CLERK PT - HOME VISIT 10/11/2024 11:45 AM FLOWER MAKER Home Care Visit [address] [address] Kathrin Mcmullen OT OT - INITIAL EVALUATION 10/11/2024 8:00 AM FLOWER MAKER Home Care Visit [address] [address] Mai Bass, RN SN - PRIORITY VISIT 10/11/2024 Home Care Visit [address] [address] Mai Bass, RN TELEPHONE ENCOUNTER 10/11/2024 Home Care Visit [address] [address] Mia Bass, RN TELEPHONE ENCOUNTER 10/07/2024 2:00 PM FLOWER MAKER Home Care Visit [address] [address] Maggie Murguia, PT PT - INITIAL EVALUATION 10/06/2024 10:00 AM FLOWER MAKER Home Care Visit [address] [address] Mai Bass, RN SN - OASIS START OF CARE 10/06/2024 Plan of Care Documentation [address] [address] 09/12/2024 Travel from Last 3 Months Social History Tobacco Use Types Packs/Day Years Used Date Smoking Tobacco: Never Assessed Comments Unknown Sex and Gender Information Value Date Recorded Sex Assigned at Not on file Legal Sex Female 1:58 PM FLOWER MAKER Gender Identity Not on file Sexual Orientation [...] 90.7 kg (200 lb) 10/06/2024 10:43 AM FLOWER MAKER Height 165.1 cm (5' 5 ) 10/25/2024 1:15 PM CDT Body Mass Index 33.28 10/06/2024 10:43 AM FLOWER MAKER Plan of Treatment Upcoming Encounters Date Type Department Care Team (Late st Contact Info) Description 10/28/2024 1:30 PM CDT Home Care Visit [address] [address] Brooke Burt, MELANIE [place] OT - HOME VISIT 11/01/2024 1:00 AM CDT Home Care Visit [address] [address] Mai Bass RN [place] 11/01/2024 2:00 PM CDT Home Care Visit [address] [address] Elisa Pollack, VAULT CLERK [place] 11/02/2024 1:00 AM CDT Home Care Visit [address] [address] Brooek Burt OTA [place] 11/03/2024 2:00 PM CDT Home Care Visit [address] [address] Elisa Pollack, VAULT CLERK [place] 11/04/2024 1:00 AM CDT Home Care Visit [address] [address] Brooke Burt OTA [place] 11/04/2024 2:00 AM CDT Home Care Visit [address] [address] Mai Bass, RN [place] 11/07/2024 1:00 AM CDT Home Care Visit [address] [address] Elisa Pollack, VAULT CLERK [place] 11/08/2024 1:00 AM CDT [facility] [address] [place] [address] Mai Bass, RN [place] 11/09/2024 1:00 AM CDT [facility] [address] [place] [address] Brooke Burt, [place]AN[place] 11/10/2024 1:00 AM CDT Home Care Visit [address] [address] Elisa Pollack, VAULT CLERK [place] 11/11/2024 1:00 AM CDT Home Care Visit [address] [address] Brooke Burt, [place] 11/11/2024 2:00 AM CDT Home Care Visit [address] [address] Mai Bass, RN [place] 11/14/2024 1:00 AM CDT Home Care Visit [address] [address] Maggie Murguia, PT 11/15/2024 1:00 AM CDT [facility] [address] [place] [address] Kathrin Mcmullen OT 11/15/2024 2:00 AM CDT [facility] [address] [place] [address] Mai Bass, RN [place] 11/16/2024 1:00 AM CDT [facility] [address] [place] [address] Elisa Pollack, VAULT CLERK [place] 11/18/2024 1:00 AM CDT [facility] [address] [place] [address] Brooke Burt, [place] 11/18/2024 2:00 AM CDT [facility] [address] [place] [address] Mai Bass, RN [place] 11/21/2024 1:00 AM CDT [facility] [address] [place] [address] Elisa Pollack, VAULT CLERK [place] 11/22/2024 1:00 AM CDT [facility] [address] [place] [address] Brooke Burt, [place]AN[place] 11/22/2024 2:00 AM CDT Home Care Visit [address] [address] Mai Bass, RN [place] 11/23/2024 1:00 AM CDT [facility] [address] [place] [address] Elisa Pollack, VAULT CLERK [place] 11/24/2024 1:00 AM CDT Home Care Visit [address] [address] Brooke Burt, DIRECTOR OF NUCLEAR MEDICINE [place] 11/25/2024 1:00 AM CDT [facility] [address] [place] [address] Mai Bass, RN [place] 11/28/2024 1:00 AM CDT [facility] [address] [place] [address] Elisa Pollack, VAULT CLERK [place] 11/29/2024 1:00 AM CDT Home Care Visit [address] [address] Mai Bass, RN [place] 11/30/2024 1:00 AM CDT Appointment [facility] [address] [place] [address] Maggie Murguia, PT 12/02/2024 1:00 AM CDT Appointment [facility] [address] [place] [address] Mai Bass, RN [place] Insurance [place]ICA[place] MEDICARE C [employer] on file Advance Directives * Full Code (Latest Code Status on File) Date Activated Date Inactivated Comments 10/06/2024 10:06 PM Care Teams Lumpia Wrapper Maker Relationship Specialty Start Date End Date Donte Lucas, PAC [address] [place] [address] PCP - General Physician Rice Cleaning Machine Tender 10/01/24
--- OUTSIDE RECORDS SUMMARY | 2024-10-28 13:16 | XMS_ITS | Clinical Summary ---
Author Organization [facility] Address [address] [place] [address] Care Team Providers Care Pediatric Ophthalmologist Name Role Phone Clement Pinto APRN-BUS DRIVER Primary Care Provider Source Comments [facility],non-owned Affiliates and Associated Physician Practices is amultiple site organization consisting of ambulatory clinics and hospital sitesin [place], [place], [place] and [place]. This disclosure is being madepursuant to the Care Everywhere program and may not contain all information available regarding this patient. Last updated 18.[employer] [facility] Allergies Active Allergy Reactions Criticality Noted Date [...] by mouth once daily Active HYDROcodone-acetam inophen ([place]) 5-325 MG tabletIndications: Post-operative state Take 1 [...] age to complete this topic Care Teams Pediatric Ophthalmologist Relationship Specialty Start Date End Date Clement Pinto APRN-BUS DRIVER [address] [place] [phone] PCP - General Nurse Practitioner Family 05/13/23
--- OUTSIDE RECORDS SUMMARY | 2024-10-28 13:16 | XMS_ITS | Encounter Summary ---
Author Organization [facility] Address [address] [place] [address] Phone Care Team Providers Care Senior Linux Systems Administrator Name Role Phone ShadyalbertoDonte [facility] Primary Care Provider [phone] Reason for Visit * Auth/Cert (Routine) Specialty Diagnoses / Procedures Referred By Jadyn t Referred To Contact Referral ID Status Reason Start Date Expiration Date Visits Re quested Visits Authorized [id number] [id number] Encounter Details Date Type Department Care Team (Latest Contact Info) Description 10/24/2024 2:00 AM CDT Home Care Visit [facility] [address] [place] [address] Mai Bass, RN [place] SN - OASIS RESUMPTION OF CARE Social History Tobacco Use Types Packs/Day Years Used Date Smoking Tobacco: Never Assessed Comments Unknown Sex and Gender Information Value Date Recorded Sex Assigned at Not on file Legal Sex Female 1:58 PM MILITARY EDUCATION COORDINATOR Gender Identity Not on file Sexual Orientation [...] 10/28/2024 1:30 PM CDT [facility] [address] [place] [address] Brooke Burt, SYSTEM ARCHITECT [place] OT - HOME VISIT 11/01/2024 1:00 AM CDT Home Care Visit [address] [address] Mai Bass, RN [place] 11/01/2024 2:00 PM CDT Home Care Visit [address] [address] Elisa Pollack, WINDOWS SERVER SUPPORT TECHNICIAN [place] 11/02/2024 1:00 AM CDT [facility] [address] [place] [address] Brooke Burt, [place]AN[place] 11/03/2024 2:00 PM CDT [facility] [address] [place] [address] Elisa Pollack, WINDOWS SERVER SUPPORT TECHNICIAN [place] 11/04/2024 1:00 AM CDT [facility] [address] [place] [address] Brooke Burt, SYSTEM ARCHITECT [place] 11/04/2024 2:00 AM CDT [facility] [address] [place] [address] Mai Bass, RN [place] 11/07/2024 1:00 AM CDT Home Care Visit [address] [address] Elisa Pollack, WINDOWS SERVER SUPPORT TECHNICIAN [place] 11/08/2024 1:00 AM CDT [facility] [address] [place] [address] Mai Bass, RN [place] 11/09/2024 1:00 AM CDT [facility] [address] [place] [address] Brooke Burt, SYSTEM ARCHITECT [place] 11/10/2024 1:00 AM CDT [facility] [address] [place] [address] Elisa Pollack, WINDOWS SERVER SUPPORT TECHNICIAN [place] 11/11/2024 1:00 AM CDT [facility] [address] [place] [address] Brooke Burt, [place]AN[place] 11/11/2024 2:00 AM CDT [facility] [address] [place] [address] Mai Bass, RN [place] 11/14/2024 1:00 AM CDT [facility] [address] [place] [address] Maggie Murguia, PT 11/15/2024 1:00 AM CDT [facility] [address] [place] [address] Kathrin Mcmullen OT 11/15/2024 2:00 AM CDT [facility] [address] [place] [address] Mai Bass, RN [place] 11/16/2024 1:00 AM CDT [facility] [address] [place] [address] Elisa Pollack, WINDOWS SERVER SUPPORT TECHNICIAN [place] 11/18/2024 1:00 AM CDT [facility] [address] [place] [address] Brooke Burt, [place]AN[place] 11/18/2024 2:00 AM CDT [facility] [address] [place] [address] Mai Bass, RN [place] 11/21/2024 1:00 AM CDT [facility] [address] [place] [address] Elisa Pollack, WINDOWS SERVER SUPPORT TECHNICIAN [place] 11/22/2024 1:00 AM CDT [facility] [address] [place] [address] Brooke Burt, SYSTEM ARCHITECT [place] 11/22/2024 2:00 AM CDT Home Care Visit [address] [address] Mai Bass, RN [place] 11/23/2024 1:00 AM CDT Home Care Visit [address] [address] Elisa Pollack, WINDOWS SERVER SUPPORT TECHNICIAN [place] 11/24/2024 1:00 AM CDT Home Care Visit [address] [address] Brooke Burt [place] 11/25/2024 1:00 AM CDT Home Care Visit [address] [address] Mai Bass, RN [place] 11/28/2024 1:00 AM CDT Home Care Visit [address] [address] Elisa Pollack, WINDOWS SERVER SUPPORT TECHNICIAN [place] 11/29/2024 1:00 AM CDT Home Care Visit [address] [address] Mai Bass, P[place] 11/30/2024 1:00 AM CDT Appointment [address] [address] Maggie Murguia, PT 12/02/2024 1:00 AM CDT Appointment [address] [address] Mai Bass, RN [place] documented as of this encounter Visit Diagnoses Not on filedocumented in this encounter Home Health Visit - Care Plan Visit Details Visit Type -SN - OASIS BILLIE Discipline -Prison Problems Problem Description Start Date Status Goals Interve ntions UTI PREVENTION Disciplines: Prison 10/24/2024 Active 1 goal linked to scheduled/documente [...] Scheduled documented in this encounter Care Teams Senior Linux Systems Administrator Relationship Specialty Start Date End Date Donte Lucas PAC [address] [place], [place] [id number] PCP - General Physician Communication Consultant 10/01/24 documented as of this encounter
--- OUTSIDE RECORDS SUMMARY | 2024-10-28 13:16 | XMS_ITS | Encounter Summary ---
Author Organization [facility] Address [address] [place] [address] Phone Care Team Providers Care Seasonal Delivery Driver Name Role Phone Donte Lucas [facility] Primary Care Provider [phone] Reason for Visit * Auth/Cert (Routine) Specialty Diagnoses / Procedures Referred By Jadyn benitez Referred To Contact Referral ID Status Reason Start Date Expiration Date Visits Re quested Visits Authorized [id number] [id number] Encounter Details Date Type Department Care Team (Latest Contact Info) Description 10/28/2024 9:30 AM CDT Home Care Visit [address] [address] Mai Bass, RN [place] SN - PRIORITY VISIT Social History Tobacco Use Types Packs/Day Years Used Date Smoking Tobacco: Never Assessed Comments Unknown Sex and Gender Information Value Date Recorded Sex Assigned at Not on file Legal Sex 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:58 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 Gender Identity Not on file Sexual Orientation Not on file documented as of this encounter Plan of Treatment Upcoming Encounters Date Type Department Care Team (Late st Contact Info) Description 10/28/2024 1:30 PM CDT Home Care Visit [address] [address] Brooke Burt OTA [place] OT - HOME VISIT 11/01/2024 1:00 AM CDT Home Care Visit [address] [address] Mai Bass, RN [place] 11/01/2024 2:00 PM CDT Home Care Visit [address] [address] Elisa Pollack PTA [place] 11/02/2024 1:00 AM CD[facility] [address] [place] [address] Brooke Burt, TOWER ERECTOR [place] 11/03/2024 2:00 PM CDT Home Care Visit [address] [address] Elisa Pollack, NEWS WRITER [place] 11/04/2024 1:00 AM CDT [facility] [address] [place] [address] Brooke Burt, TOWER ERECTOR [place] 11/04/2024 2:00 AM CDT Home Care Visit [address] [address] Mai Bass RN [place] 11/07/2024 1:00 AM CDT Home Care Visit [address] [address] Elisa Pollack, NEWS WRITER [place] 11/08/2024 1:00 AM CDT Home Care Visit [address] [address] Mai Bass, RN [place] 11/09/2024 1:00 AM CDT Home Care Visit [address] [address] Brooke Burt, [place] 11/10/2024 1:00 AM CDT [facility] [address] [place] [address] Elisa Pollack, NEWS WRITER [place] 11/11/2024 1:00 AM CDT [facility] [address] [place] [address] Brooke Burt, TOWER ERECTOR [place] 11/11/2024 2:00 AM CDT Home Care Visit [address] [address] Mai Bass RN [place] 11/14/2024 1:00 AM CDT Home Care Visit [address] [address] Maggie Murguia, PT 11/15/2024 1:00 AM CDT Home Care Visit [address] [address] Kathrin Mcmullen OT 11/15/2024 2:00 AM CDT Home Care Visit [address] [address] Mai Bass, RN [place] 11/16/2024 1:00 AM CDT Home Care Visit [address] [address] Elisa Pollack, NEWS WRITER [place] 11/18/2024 1:00 AM CDT Home Care Visit [address] [address] Brooke Burt, [place] 11/18/2024 2:00 AM CDT Home Care Visit [address] [address] Mai Bass, RN [place] 11/21/2024 1:00 AM CDT Home Care Visit [address] [address] Elisa Pollack, NEWS WRITER [place] 11/22/2024 1:00 AM CDT Home Care Visit [address] [address] Brooke Burt, [place]AN[place] 11/22/2024 2:00 AM CDT Home Care Visit [address] [address] Mai Bass, RN [place] 11/23/2024 1:00 AM CDT Home Care Visit [address] [address] Elisa Pollack, NEWS WRITER [place] 11/24/2024 1:00 AM CDT Home Care Visit [address] [address] Brooke Burt, TOWER ERECTOR [place] 11/25/2024 1:00 AM CDT Home Care Visit [address] [address] Mai Bass, PADMA [place] 11/28/2024 1:00 AM CDT Home Care Visit [address] [address] Elisa Pollack PTA [place] 11/29/2024 1:00 AM CDT Home Care Visit [address] [address] Mai Bass, RN [place] 11/30/2024 1:00 AM CDT Appointment [address] [address] Maggie Murguia, PT 12/02/2024 1:00 AM CDT Appointment [address] [address] Mai Bass, RN [place] documented as of this encounter Visit Diagnoses Not on filedocumented in this encounter Home Health Visit - Care Plan Visit Details Visit Type -SN - Priority Vi sit Discipline -Fci Problems Problem Description Start Date Status Goals Interve ntions UTI PREVENTION Disciplines: [facility]ci 10/24/2024 Active 1 goal linked to scheduled/documente [...] Scheduled documented in this encounter Care Teams Seasonal Delivery Driver Relationship Specialty Start Date End Date Donte Lucas PAC [address] [place] [address] PCP - General Physician Nurse'S Assistant 10/01/24 documented as of this encounter
--- OUTSIDE RECORDS SUMMARY | 2024-10-28 13:16 | XMS_ITS | Encounter Summary ---
Author Organization [facility] Address [address] [place] [address] Phone Care Team Providers Care Marketing Pr Intern Name Role Phone ShadyalbertoDonte PAC Primary Care Provider [phone] Reason for Visit * Auth/Cert (Routine) Specialty Diagnoses / Procedures Referred By Jadyn t Referred To Contact Referral ID Status Reason Start Date Expiration Date Visits Re quested Visits Authorized [id number] [phone] Encounter Details Date Type Department Care Team ([facility] Contact Info) Description 10/27/2024 10:00 AM CDT Home Care Visit 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 Gender Identity Not on file Sexual Orientation [...] Upcoming Encounters Date Type Department Care Team ([facility] Contact Info) Description 10/28/2024 1:30 PM CDT [facility] [address] [place] [address] Laws, Brooke D, INTEGRATED CIRCUIT IC LAYOUT DESIGNER [place] - HOME VISIT 11/01/2024 1:00 AM CDT [facility] [address] [place] [address] Mai Bass, RN [place] 11/01/2024 2:00 PM CDT [facility] [address] [place] [address] Elisa Pollack, SYSTEMS SECURITY ANALYST [place] 11/02/2024 1:00 AM CDT [facility] [address] [place] [address] Brooke Burt, [place] 11/03/2024 2:00 PM CDT [facility] [address] [place] [address] Elisa Pollack, SYSTEMS SECURITY ANALYST [place] 11/04/2024 1:00 AM CDT [facility] [address] [place] [address] Brooke Burt, INTEGRATED CIRCUIT IC LAYOUT DESIGNER [place] 11/04/2024 2:00 AM CDT [facility] [address] [place] [address] Mai Bass, [place] 11/07/2024 1:00 AM CDT [facility] [address] [place] [address] Elisa Pollack, SYSTEMS SECURITY ANALYST [place] 11/08/2024 1:00 AM CDT [facility] [address] [place] [address] Mai Bass, RN [place] 11/09/2024 1:00 AM CDT [facility] [address] [place] [address] Brooke Burt, [place] 11/10/2024 1:00 AM CDT [facility] [address] [place] [address] Elisa Pollack, SYSTEMS SECURITY ANALYST [place] 11/11/2024 1:00 AM CDT [facility] [address] [place] [address] Brooke Burt, [place] 11/11/2024 2:00 AM CDT [facility] [address] [place] [address] Mai Bass, RN [place] 11/14/2024 1:00 AM CDT [facility] [address] [place] [address] Maggie Murguia, PT 11/15/2024 1:00 AM CDT Home Care Visit [facility] [address] Kathrin Mcmullen OT 11/15/2024 2:00 AM CDT Home Care Visit [facility] [address] Mai Bass, RN [place] 11/16/2024 1:00 AM CDT Home Care Visit [facility] [address] Elisa Pollack, SYSTEMS SECURITY ANALYST [place] 11/18/2024 1:00 AM CDT Home Care Visit [facility] [address] Brooke Burt, [place] 11/18/2024 2:00 AM CDT [facility] [address] [place] [address] Mai Bass, RN [place] 11/21/2024 1:00 AM CDT [facility] [address] [place] [address] Elisa Pollack, SYSTEMS SECURITY ANALYST [place] 11/22/2024 1:00 AM CDT Home Care Visit [facility] [address] Brooke Burt, INTEGRATED CIRCUIT IC LAYOUT DESIGNER [place] 11/22/2024 2:00 AM CDT Home Care Visit [facility] [address] Mai Bass, [place] 11/23/2024 1:00 AM CDT Home Care Visit [facility] [address] Elisa Pollack, SYSTEMS SECURITY ANALYST [place] 11/24/2024 1:00 AM CDT Home Care Visit [facility] [address] Brooke Burt, [place] 11/25/2024 1:00 AM CDT Home Care Visit [facility] [address] Mai Bass, RN [place] 11/28/2024 1:00 AM CDT Home Care Visit [facility] [address] Elisa Pollack, SYSTEMS SECURITY ANALYST [place] 11/29/2024 1:00 AM CDT Home Care Visit [facility] [address] Mai Bass, [place] 11/30/2024 1:00 AM CDT Appointment [facility] [address] Maggie Murguia, PT 12/02/2024 1:00 AM CDT Appointment [facility] [address] Mai Bass, RN [place] documented as of [...] goals the following were identified: Patient centered care home goal: return to PLOF. Target Date: by 12-02-24 (date) PHYSICAL THERAPY EVALUATION (O) No PT Balance Description: Chcf Goal: Patient will show improved dynamic standing [...] PT COMPREHENSIVE No PT Caregiver Assist/Safety Description: long-term Goal: Caregiver will be able to safely demonstrate patient assistance with home exercise program, bed mobility, transfers, ambulation and stair negotiation in order to safey assist pt when PT staff is not present. To be met by 12-02-24. PT COMPREHENSIVE No PT Activity Tolerance Description: long-term Goal: Patient to demonstrate increased activity tolerance [...] safely . To be met by 11-18-24. Chcf Goal: Patient will require supervision on entry [...] burden . To be met by 11-18-24. After School Program Director Goal Patient will be independent with supine [...] a snack. To be met by 11-18-24. Chcf Goal: Patient will ambulate independently x 100-200 feet with use of 4 wheel walker, over even surfaces with the following gait characteristics improvement in B step length and L LE foot clearance in order to safely ambulate into [employer] [place] to obtain groceries. To be met by 12-02-24. PT COMPREHENSIVE No PT Transfers Description: Short Term Goal: Patient will perform sit<>stand transfers with CGA x 1 with use of a wheeled walker. To be met by 11-18-24. Chcf Goal: Patient will perform sit<>stand transfers independently with use of a wheeled walker. To be met by 12-02-24. PT COMPREHENSIVE No PT Strength Description: Chcf Goal: Patient will show improved bilateral lower extremity hip strength as demonstrated by improved manual muscle test score to at least 4/5 . To be met by 12-02-24. PT COMPREHENSIVE No PT HEP Description: Chcf Goal: Patient and/or caregiver will independently with [...] (Order Only) Description: Pt was admitted to [facility] on 10/14/24 and transferred to [facility] the following day - she was diagnosed with a CHF exacerbation. She received 2 units of blood while inpatient and was also diagnosed with a UTI and pneumonia. She returned home on 10/20/24 with orders for [facility] to resume and new O2 at 2L continuously and a gonzalez catheter. She has had 1 fall since coming home. Pt is on a fluid restriction. PMH : seizures, CHF, diabetes, PVD, a-fib, PE, CKD, CAD, OA, CVA, L femur fracture. [facility] PT referral initially received for diagnosis of difficulty in walking. Pt seen for [facility] PT re-evaluation following hospitalization. Pt would benefit from resuming skilled [facility] PT for gait/mobility training with walker, balance/endurance training, ther ex, HEP and pt/caregiver education. [facility] therapy may check oxygen saturation level prn during therapy visits with MD notification if SpO2 maintains below 90%. Pt is aware of revised plan of care, visit schedule, and goals and is agreeable to resuming [facility] PT. Pt was in [facility] ER on 09/11/24 with c/o abdominal pain, nausea, and vomiting. She was diagnosed with DKA and an NSTEMI. She transferred to [facility] from 09/13/24-10/01/24 due to the need for a higher level of care. She had several complications when inpatient including altered mental status, intubation, encephalopathy, influenza, pneumonia. She declined SNF placement and returned home with orders for [facility]. 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 Pt's son and daughter are currently living with her. Pt's PCP has ordered a wheelchair for her. She is having issues with incontinence due to her water pill being increased. PMH : seizures, CHF, diabetes, PVD, a-fib, PE, CKD, CAD, OA, CVA, L femur fracture. [facility] PT referral received for diagnosis of weakness and/or difficulty in walking. Pt presents with decline in general mobility and functional endurance and overall safety. Pt would benefit from skilled [facility] PT for gait/mobility training with walker, balance/endurance training, ther ex, HEP, and pt education. [facility] therapy may check oxygen saturation level [...] understanding. documented in this encounter Care Teams Marketing Pr Intern Relationship Specialty Start Date End Date Donte Lucas PAC [address] [place] [id number] PCP - General Physician Mirror Painter 10/01/24 documented as of this encounter
--- OUTSIDE RECORDS SUMMARY | 2024-10-28 13:16 | XMS_ITS | Continuity of Care Document ---
Author Organization [facility] Address [id number] [place] [address] [address] [place] [address] Phone Care Team Providers Care Premium Card Cancellation Clerk Name Role Phone Josh Teixeira MD, MD Unavailable Unavailab le Procedures Procedure Date POSTOP FOLLOW-UP VISIT CATARACT SURG W/IOL, 1 STAGE CATARACT SURG W/IOL, 1 STAGE OFFICE/OUTPATIENT VISIT, [facility] Advance Directives Directive Yes / No Effective Date File Name No Information Encounters Encounter Description Practice Location Reason(s) For Visit Diagnoses Date Provider Providers Copied on Encounter [facility], [address], [place], [place], [id number], [place] tel:[phone] 78 [facility] No Information 4 Puneet Moreno. [address], [address], [place], [place], [address] , [place]. [phone] Referring Provider: Josh Watkins, [address], [place], [place], [address]. tel:[phone] [facility], [address], [place], [place], [address], [place] tel:[phone] 78 [facility] No Information 4 Puneet Moreno. [address], [place], [place], [address] , [place]. [phone] Referring Provider: Josh Watkins, [address], [place], [place], [address]. tel:[phone] [facility], [address] [address], [place], [place], [address], tel:[phone] 78 [facility] No Information 3 Puneet Moreno. [address], [place], [place], [address] , [place]. tel:[phone] Referring Provider: Josh Watkins, [address], [place], [place], [address]. tel:[phone] OFFICE/OUTPAT IENT VISIT, [facility], [address], [place], [place], [address], tel:[phone] 78 [facility] No Information 3 Puneet Moreno. [address], [place], [place], [address] , [place]. tel:[phone] Referring Provider: Josh Watkins, [address], [place], [place], [address]. tel:[phone] Family History Family Member Type Diagnosis Age [...]
--- OUTSIDE RECORDS SUMMARY | 2024-10-28 13:16 | XMS_ITS | Encounter Summary ---
Author Organization [facility] Address [address] 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 Gender Identity Not on file Sexual Orientation Not on file documented as of this encounter Plan of Treatment Upcoming Encounters Date Type Department Care Team (Late st Contact Info) Description 11/01/2024 1:00 AM CDT Home Care Visit [facility] [address] Mai Bass, [place] 11/01/2024 2:00 PM CDT Home Care Visit [facility] [address] Elisa Pollack, [place] 11/02/2024 1:00 AM CDT Home Care Visit [facility] [address] Brooke Burt [place] 11/03/2024 2:00 PM CDT Home Care Visit [facility] [address] Elisa Pollack, [place] 11/04/2024 1:00 AM CDT [facility] [address] [place] [address] Brooke Burt, [place] 11/04/2024 2:00 AM CDT [facility] [address] [place] [address] Mai Bass, RN [place] 11/07/2024 1:00 AM CDT [facility] [address] [place] [address] Elisa Pollack, [place] 11/08/2024 1:00 AM CDT Home Care Visit [facility] [address] Mai Bass, RN [place] 11/09/2024 1:00 AM CDT Home Care Visit [facility] [address] Brooke Burt, [place] 11/10/2024 1:00 AM CDT [facility] [address] [place] [address] Elisa Pollack, [place] 11/11/2024 1:00 AM CDT Home Care Visit [facility] [address] Brooke Burt, [place] 11/11/2024 2:00 AM CDT [facility] [address] [place] [address] Mai Bass, RN [place] 11/14/2024 1:00 AM CDT [facility] [address] [place] [address] Maggie Murguia, PT 11/15/2024 1:00 AM CDT Home Care Visit [facility] [address] Kathrin Mcmullen OT 11/15/2024 2:00 AM CDT [facility] [address] [place] [address] Mai Bass, [place] 11/16/2024 1:00 AM CD[facility] [address] [place] [address] Elisa Pollack, [place] 11/18/2024 1:00 AM CDT Home Care Visit [facility] [address] Brooke Burt, [place] 11/18/2024 2:00 AM CDT Home Care Visit [facility] [address] Mai Bass, RN [place] 11/21/2024 1:00 AM CDT Home Care Visit [facility] [address] Elisa Pollack, [place] 11/22/2024 1:00 AM CDT Home Care Visit [facility] [address] Brooke Burt, [place] 11/22/2024 2:00 AM CDT Home Care Visit [facility] [address] Mai Bass, [place] 11/23/2024 1:00 AM CDT Home Care Visit [facility] [address] Elisa Pollack, [place] 11/24/2024 1:00 AM CDT [facility] [address] [address] Brooke Burt, [place] 11/25/2024 1:00 AM CDT Home Care Visit [facility] [address] Mai Bass, [place] 11/28/2024 1:00 AM CDT Home Care Visit [facility] [address] Elisa Pollack K, [place] 11/29/2024 1:00 AM CDT [facility] [address] [place] [address] Mai Bass, RN [place] 11/30/2024 1:00 AM CDT [facility] [address] [place] [address] Maggie Murguia, PT 12/02/2024 1:00 AM CDT [facility] [address] [place] [address] Mai Bass, RN [place] documented as of this encounter Visit Diagnoses Not on filedocumented in this encounter Home Health Visit - Care Plan Visit Details Visit Type -OT - HOME VISIT Discipline -Occupational Therapy Problems Problem Description Start Date Status Goals Interve ntions OCCUPATIONAL THERAPY EVALUATION ORDER (O) Disciplines: Occupational Therapy Occupational Therapy General Order 10/11/2024 Active 1 goal linked to scheduled/documen monty intervention 1 goal intervention scheduled/document ed in this visit Goals Goal Associated Problem Outcome Goal Met? Visit Notes Occupational Therapy Evaluation Description: After assessing the patient and discussing the patient's goals the following were identified. Patient Centered Intermediate Goal: to be able to go to bingo Target date: 12/12/24 OCCUPATIONAL THERAPY EVALUATION ORDER (O) No Interventions Intervention Associated Problem/Goal Status Variance Visit Notes OT Evaluation (Order Only) Description: 48 y/o female was in [facility] on 09/11/24 with c/o abdominal pain, nausea, and vomiting. She was diagnosed with DKA and an NSTEMI. She transferred to [facility] from 09/13/24-10/01/24 due to the need for a higher level of care. She had several complications when inpatient including altered mental status, intubation, encephalopathy, influenza, pneumonia. She declined SNF placement and returned home with orders for C. 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 Pt's son and daughter are currently living with her. Pt. has a manual w/c, commode, transfer tub bench, and foam w/c cushion. PMH : seizures, CHF, diabetes, PVD, a-fib, PE, CKD, CAD, OA, CVA, L femur fracture, bursitis in B shoulders, L great toe amputation At OT assessment, pt. asked to use the commode right away.Pt. did a pivot transfer with her walker with mod assist to stand from w/c. Pt. was dependent to manage hygiene and clothing. Pt. asked to walk. Pt. stood from the commode and ambulated down the queen to the kitchen doorway with CGA and caregiver following with w/c. Pt. is highly motivated and seems to have great support from her son and his as well as her ex- and his . Occupational therapy for ADLs, transfers, endurance, energy conservation, UE HEP, and overall safety/equipment recommendations. Patient and Donte Lucas MD are in agreement with plan of care. Perform pulse oximetry PRN for intermittent assessment and/ or respiratory distress. Problem:OCCUPATIONAL THERAPY EVALUATION ORDER (O) Goal:Occupational Therapy Evaluation Scheduled documented in this encounter Care Teams Draughtsman Relationship Specialty Start Date End Date Donte Lucas, [facility] [address] [place] [address] PCP - General Physician Global Marketing Operations Manager 10/01/24 documented as of this encounter
[2024-10-28 13:19] LABS: Chloride 103 mmol/L (98-108)
[2024-10-28 13:20] LABS: Anion Gap 9 mmol/L (4-12); Aspartate Amino Transferase 21 U/L (15-37); Osmolality Calculated 311 mOsm/kg (285-295); Sodium 138 mmol/L (136-145)
[2024-10-28 13:25] LABS: Lactic Acid Reflex 0.9 mmol/L (0.4-2.0)
[2024-10-28 15:37] LABS: Occult Blood Negative (Negative)
[2024-10-28] MEDS: FUROSEMIDE INJ 20 MG/2 ML VIAL 10 MG IV PUSH (15:42)
[2024-10-28] MEDS: levoFLOXacin 750 MG/D5W 150 ML 750 MG/150 ML BAG 100 MG IVPB (15:44)
[2024-10-28] MEDS: SODIUM CHLORIDE 0.9% IV 1,000 ML 999 ML IV CONT (15:44)
--- NOTE | 2024-10-28 16:10 | PC.NURSE ---
[facility] Transfer line called to discuss pt transfer
[2024-10-28 16:55] LABS: Add Urine Microscopic? YES; Appearance Urine Sl Cloudy (Clear); Bilirubin Urine Negative (Negative); Blood Urine Negative (Negative); Color Urine Light Yellow (Yellow); Glucose Urine UA Trace (Negative); Ketones Urine Negative (Negative); Leukocyte Esterase Ur 2+ LEU/UL (Negative); Nitrate Urine Positive (Negative); Protein Urine Negative (Negative); Specific Grav Ur <= 1.005 (1.010-1.020); Urobilinogen Urine 0.2 mg/dL (0.2-1.0)
[2024-10-28 16:59] LABS: RBC Urine 0-2 /hpf (0-2); Squamous Epithelial Cell Urine Rare /hpf (Few); WBC Urine 0-3 /hpf (0-3)
[2024-10-28 17:00] LABS: Amorphous Sediment Urine Few; Bacteria Urine 1+ /hpf; Budding Yeast Urine Present /hpf
--- NOTE | 2024-10-28 19:06 | PC.NURSE ---
Report given to PADMA Moreno
--- NOTE | 2024-10-28 19:19 | PC.NURSE ---
Report received, pt sleeping upon entering room, awakens easily. She reports being uncomfortable, pt repositioned in bed for comfort, new set of VS taken and noted temp of 100. ERP informed and will give pt tylenol for fever. Still awaiting bed at [facility], pt updated on wait time, VSS.
[2024-10-28] MEDS: ACETAMINOPHEN 500 MG TABLET 1000 MG PO (19:48)
--- NOTE | 2024-10-28 21:30 | PC.NURSE ---
Pt turned and repositioned, pt updated about still waiting on callbacks for bed placement and call back from [facility] for transfer, no needs at this time. Continuing to monitor.
[2024-10-28] MEDS: IPRATROPIUM 0.5 MG/ALBUTEROL SULFATE 2.5 MG AMPUL.NEB 3 ML INHALATION (23:54)
[2024-10-28] MEDS: ORPHENADRINE CITRATE 30 MG/ML 2 ML VIAL 60 MG IV PUSH (23:57)
[2024-10-28] MEDS: methylPREDNISolone SOD SUCC 125 MG VIAL IV PUSH (23:59)
[2024-10-29] VITALS (16 sets, daily range): BP systolic 117–139; BP diastolic 51–72; PULSE 94–105; RESP 20–34; TEMP 36.6–36.8; O2SAT 91–100
--- NOTE | 2024-10-29 00:20 | PC.NURSE ---
Pt moved to hospital bed for comfort, awaiting bed acceptance at another facility. Order received for meds for pain and breathing tx given per order. Pt has been accepted by Dr. An at [facility]. Will call back w/ bed at 0500.
--- NOTE | 2024-10-29 00:43 | PC.NURSE ---
Pt has been accepted at [facility] by Dr An, will call w/ a bed for placement around 0500 this morning. Pt sleeping, VSS, continuing to monitor.
[2024-10-29 01:04] LABS: Troponin I 700.2 ng/L (0.00-60.4)
--- NOTE | 2024-10-29 03:14 | PC.NURSE ---
Call back from JORDAN Osorio at [facility], spoke to Dr bishop and JORDAN Nazario will accept pt for transfer. [facility] has IMU bed and will call back w/ bed.
--- NOTE | 2024-10-29 03:41 | PC.NURSE ---
Call from Mariama at [facility] w/ bed. Pt will go to Bed 210.
--- NOTE | 2024-10-29 04:19 | PC.NURSE ---
DELL paged for transfer to take pt to IMU at [facility]. Call back received from Matti after EMS paged and he stated unable to take pt and he declined transfer. No reason given, Call then placed to [facility] for transfer. Call back received from [facility] and they stated they have 2 trucks already out and it will be around 7am until able to take transfer. Pt resting, continuing to monitor. Pt c/o feeling SOB and Dr Garcia given update on transfer status and pts c/o SOB.
[2024-10-29] MEDS: FUROSEMIDE INJ 20 MG/2 ML VIAL IV PUSH (04:34)
--- NOTE | 2024-10-29 04:40 | PC.NURSE ---
ERP in to re-evaluate pt. Pt is lethargic, able to answer questions appropriately but c/o feeling more SOB. Noted bilat. crackles present and pt tachypneic at RR of 26-30. Pts O2 increased to 4L NC, order given to lab for ABG draw. Pt color noted to be pale and somewhat dusky. Continuing to monitor while awaiting EMS for transfer.
[2024-10-29 04:47] LABS: Base Excess ABG -2.4 mmol/L (0-2); HCO3 ABG 22.4 mmol/L (23-29); Oxygen Saturation ABG 90.2 % (95-97); Oxyhemoglobin 88.9 % (94-100); PCO2 ABG 38.3 mmHg (35-45); PO2 ABG 65.1 mmHg (80-90); pH ABG 7.38 (7.35-7.45)
[2024-10-29 04:48] LABS: Device NASAL CANNULA; Modified Allen's Test Pass; Site Drawn RIGHT RADIAL
--- NOTE | 2024-10-29 04:50 | PC.NURSE ---
fe Mejia for respiratory notified. Orders obtained to place pt on bipap. Pt resting, increased O2 to 4L NC and pt SPO2 increased from 90% to 96%. Continuing to monitor, Monitor shows STach.
[2024-10-29] MEDS: VANCOMYCIN 1,250 MG/NS 250 ML 1,250 MG/250 ML BAG 166.67 MG IVPB ×2 (05:04→06:32)
--- NOTE | 2024-10-29 05:30 | PC.NURSE ---
Meliza from [facility] here to setup pt on bipap per order.
--- NOTE | 2024-10-29 05:40 | PC.NURSE ---
Call from Mariama about pts orders and status. Cell # received for Dr Garcia to call Maisha and give pt update.
--- NOTE | 2024-10-29 06:00 | PC.NURSE ---
Pt resting comfortably on bipap, sleeping and continuing to monitor until EMS will arrive for transfer.
--- NOTE | 2024-10-29 06:43 | PC.NURSE ---
Updated report called to Swapnil garza Johan, pt transferred to EMS cot w/o difficulty and bipap removed for transfer. Pt placed back on 4L NC O2 and tolerating well, VSS.
--- NOTE | 2024-10-30 11:37 | PC.NURSE ---
blood culture preliminary reviewed, spoke with nurse aleman at [facility]. notified of results.
--- NOTE | 2024-10-31 13:29 | PC.NURSE ---
Final Urine culture report faxed to [facility], Patient in room 210,
--- NOTE | 2024-11-01 12:42 | PC.NURSE ---
FINAL BLOOD CULTURE RESULT: ISOLATE 1: STAPHYLOCOCCUS EPIDERMIDIS, RESULTS WERE FAXED TO [facility] AT [phone].
== END 2024-10-29 06:45 | disposition short-term general hospital (02) ==
PROVIDERS: Emergency Provider Emergency Medicine; PCP Physician Assistant
DX: J18.9 Pneumonia, unspecified organism (principal); D64.89 Other specified anemias; A41.9 Sepsis, unspecified organism; I50.9 Heart failure, unspecified; S22.42XA Multiple fractures of ribs, left side, initial encounter for closed fracture; J44.9 Chronic obstructive pulmonary disease, unspecified; E11.9 Type 2 diabetes mellitus without complications; Z99.81 Dependence on supplemental oxygen; Z20.822 Contact with and (suspected) exposure to COVID-19; Z79.899 Other long term (current) drug therapy; X58.XXXA Exposure to other specified factors, initial encounter
CPT/HCPCS: 36415; 36600; 71045; 71275; 80053; 81001; 82272; 82805; 82948; 83605; 83880; 84484; 85025; 85380; 85610; 85730; 87040; 87077; 87086; 87088; 87181; 87186; 87637; 93005; 94640; 96365; 96366; 96367; 96375; 96376; 99285; A9270; J1940; J1956; J2360; J2919; J3370; J7030; Q9967

== ENCOUNTER 2024-10-29 07:19 | Inpatient (IN) | payer MEDICARE, MEDICAID, SELFPAY ==
[2024-10-29] VITALS (13 sets, daily range): BP systolic 105–149; BP diastolic 49–74; PULSE 79–108; RESP 20–425; TEMP 36.3–37.4; O2SAT 97–99; BMI 40.8
--- NOTE | ~2024-10-29 | CT_ITS ---
History: Possible seizure PROCEDURE: CT head without contrast. COMPARISON: 07/10/2024 TECHNIQUE: Axial imaging of the head performed from the skull base to the vertex without IV contrast. Sagittal a nd coronal reformations obtained. DLP: 605 mGy-cm FINDINGS: The ventricles are normal in size, shape and position. There is no mass, mass effect or midline shift. Calcifications of the basal ganglia are also present. There is no abnormal extra-axial fluid collection or intracranial hemorrhage. Visualized paranasal sinuses are clear. The mastoid air cells are well aerated. 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 No acute displaced fractures within the overlying cranium. Impression: No acute intracranial hemorrhage or suspicious mass effect. Reviewed, dictated and finalized at location A. Impression: No acute intracranial hemorrhage or suspicious mass effect.
--- NOTE | ~2024-10-29 | US_ITS ---
EXAMINATION: US thoracentesis DATE: 11/03/2024 10:52 INDICATION: Left pleural effusion. TECHNIQUE: The procedure and its risks, benefits, and alternatives were discussed with the patient. P otential risks discussed included bleeding, infection, and pneumothorax. The patient understood the r isks and agreed to proceed. The skin was prepped and draped in sterile fashion. 1% lidocaine was used for local anesthesia. Under ultrasound guidance, a 5 Fr catheter with trochar was advanced into the left pleural effusion. Fluid was aspirated. The catheter was removed, and a dressing was applied. The re were no immediate complications. FINDINGS: Ultrasound images demonstrate a left pleural effusion and the catheter within the fluid. IMPRESSION: 1. Successful ultrasound-guided thoracentesis yielding 1000 mL of yellow fluid. Reviewed, dictated and finalized at location A. IMPRESSION: 1. Successful ultrasound-guided thoracentesis yielding 1000 mL of yellow fluid .
--- NOTE | ~2024-10-29 | XR_ITS ---
[id number] 11/07/2024 10:55 Indication: Postthoracentesis. Procedure: AP portable chest Comparison: 11/04/2019 Findings: No pneumothorax identified. Stable cardiomediastinal silhouette. Left basilar infiltrates. Possible small left effusion. Right lung clear. Impression: 1: Left basilar infiltrates may represent atelectasis or pneumonia. 2: Possible small left effusion. No pneumothorax identified. Reviewed, dictated and finalized at location A. Impression: 1: Left basilar infiltrates may represent atelectasis or pneumonia. 2: Possible small left effusion. No pneumothorax identified.
--- NOTE | ~2024-10-29 | XR_ITS ---
[id number] 11/03/2024 10:39 Indication: Pleural effusion postthoracentesis Procedure: AP portable chest Comparison: 11/01/2024 Findings: Decreased size of left pleural effusion. Left basilar airspace disease may represent atelec tasis or pneumonia. No pneumothorax. Impression: 1: No pneumothorax identified post procedure. 2: Decreased size of left pleural effusion. 3: Left basilar airspace disease may represent atelectasis or pneumonia. Reviewed, dictated and finalized at location A. Impression: 1: No pneumothorax identified post procedure. 2: Decreased size of left pleural effusion. 3: Left basilar airspace disease may represent atelectasis or pneumonia.
--- NOTE | ~2024-10-29 | XR_ITS ---
EXAMINATION: XR chest 1V portable DATE: 11/04/2024 05:38 INDICATION: Pleural effusion. TECHNIQUE: A single frontal view of the chest was obtained. COMPARISON: Chest single view 11/03/2024, chest CT 10/28/2024 FINDINGS: There are airspace opacities in left lower lung zone. No pleural effusion or pneumothorax. Cardiomegaly is noted. IMPRESSION: 1. Stable airspace opacities in left lower lung zone, consistent with pneumonia. 2. Cardiomegaly. Reviewed, dictated and finalized at location A. IMPRESSION: 1. Stable airspace opacities in left lower lung zone, consistent with pneumonia . 2. Cardiomegaly.
--- NOTE | ~2024-10-29 | XR_ITS ---
CHEST RADIOGRAPH CLINICAL HISTORY: f/u Pleural effusion . COMPARISON: 11/05/2024 TECHNIQUE: Single portable view of the chest. FINDINGS The cardiomediastinal silhouette is now partially obscured. Increasing left-sided pleural effusion when compared with previous examination. Increased interstitial markings are identified bilaterally, findings suggesting mild pulmonary vascul ar congestion. The lungs are otherwise clear. IMPRESSION: Increasing left-sided pleural effusion with mild pulmonary vascular congestion. Reviewed, dictated and finalized at location A.
--- NOTE | ~2024-10-29 | XR_ITS ---
EXAMINATION: XR chest 1V portable DATE: 11/05/2024 05:26 INDICATION: Pleural effusion. TECHNIQUE: A single frontal view of the chest was obtained. COMPARISON: Chest single view 10/27/2024, chest CT 10/28/24 FINDINGS: There are airspace opacities in left mid and lower lung zones. There is a small left pleura l effusion. No pneumothorax. Cardiomegaly is noted. IMPRESSION: 1. Stable airspace opacities in left mid and lower lung zones, consistent with pneumonia. 2. Small left pleural effusion. 3. Cardiomegaly. Reviewed, dictated and finalized at location A.
--- NOTE | ~2024-10-29 | US_ITS ---
EXAMINATION: US thoracentesis DATE: 11/07/2024 11:04 INDICATION: pleural effusion TECHNIQUE: The procedure and its risks, benefits, and alternatives were discussed with the patient. P otential risks discussed included bleeding, infection, and pneumothorax. The patient understood the r isks and agreed to proceed. The skin was prepped and draped in sterile fashion. 1% lidocaine was used for local anesthesia. Under ultrasound guidance, a 5 Fr catheter with trochar was advanced into the left pleural effusion. Fluid was aspirated. The catheter was removed, and a dressing was applied. The re were no immediate complications. FINDINGS: Ultrasound images demonstrate a left pleural effusion and the catheter within the fluid. IMPRESSION: 1. Successful ultrasound-guided thoracentesis yielding 650 mL of abner-colored fluid. Reviewed, dictated and finalized at location A.
--- NOTE | ~2024-10-29 | XR_ITS ---
XR chest 1V portable 10/29/2024 11:23 Indication: Shortness of breath Procedure: AP portable chest Comparison: Comparison to multiple prior studies sequentially, with oldest reviewed study dated 10/28. Findings: Cardiomegaly. Mild interstitial edema. No significant effusion or pneumothorax. Impression: 1: Cardiomegaly with mild interstitial edema. Reviewed, dictated and finalized at location B. Impression: 1: Cardiomegaly with mild interstitial edema.
--- NOTE | ~2024-10-29 | XR_ITS ---
EXAMINATION: XR chest 1V portable DATE: 11/01/2024 13:51 INDICATION: Pleural effusion TECHNIQUE: frontal view of the chest was obtained. COMPARISON: Chest radiograph dated 10/29/2024 FINDINGS: Opacity in the left mid and lower lung zone which could represent a moderate-sized left pleural effus ion, atelectasis or pneumonia. Right lung is clear. No pulmonary edema in the aerated portions the joni ngs. No pneumothorax or right-sided pleural effusion. Heart size is normal. IMPRESSION: 1. Increased opacity in the left mid and lower lung zone consistent with increasing moderate-sized pl eural effusion, atelectasis, pneumonia or some combination thereof. Reviewed, dictated and finalized at location B. IMPRESSION: 1. Increased opacity in the left mid and lower lung zone consistent with increa sing moderate-sized pleural effusion, atelectasis, pneumonia or some combinatio n thereof.
--- OUTSIDE RECORDS SUMMARY | 2024-10-29 07:21 | XMS_ITS | Encounter Summary ---
Author Organization [facility] Healthcare Address [address] [place] [address] Care Team Providers Care Computational Chemist Name Role Phone Arnoldo Gary MD Primary Care Provider [phone] Miscellaneous, Not In File Primary Care Provider Unavailable Donte Lucas Primary Care Provider Encounter Details Date Type Department Care Team (Late st Contact Info) Description 09/26/2021 Telephone [facility] Case Management [address] [place] [address] Leydi Bush, RN Social History [...] often do you attend chur ch or adventism services? 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 difficile suspected 09/25/2024 09/26/202409/26 4:13 AM VISITOR SERVICES TECHNICIAN documented as of this encounter Care Teams Computational Chemist Relationship Specialty Start Date End Date Arnoldo Gary MD [address] [place] [address] PCP - General 12/22/17 05/23/23 Miscellaneous, Not In File PCP - General 05/24/23 Donte Lucas PA [address] [place] [id number] PCP - General Physician Truck Caterer 08/26/24 documented as of this encounter
--- OUTSIDE RECORDS SUMMARY | 2024-10-29 07:21 | XMS_ITS | Clinical Summary ---
Author Organization [employer] [facility] Address [address] [facility] [place] [address] Phone Care Team Providers Care Family Engagement Specialist Name Role Phone Arnoldo Gary MD Primary Care Provider [phone] Allergies Active Allergy Reactions Criticality Noted Date [...] migh t be different from the original. SCIENTIFIC PROGRAMMER ANALYST: DR. 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 Gender Identity Not on file Sexual [...] (#1) 2024 Medical Devices Implanted Type Area Shift Engineer Device Identifier Shelf Expiration Date Model / Serial / Lot Tfna Fenestrated Screw 90mm Implanted:Qty: 1 on 03/27/2021 by Bob Deras MD at [facility] Screw Left: Hip [employer] [facility] 02/06/2031 04.038.19 0 S / / [id number] Screw Loc Stardrv 5x62mm Strl 04.005.552s - Sload 23 Implanted:Qty: 1 on 03/27/2021 by Bob Deras MD at [facility] Screw Left: Hip [employer] 04.005.55 2 S / LOAD 03/14/21 11mm/125deg Ti Js Tfna 380mm/Left Implanted:Qty: 1 on 03/27/2021 by Bob Deras MD at [facility] Left: Hip [employer] [place] 01/07/2030 04.037.12 9 S / / [id number] Description:All [employer]ynthe[employer] comp onents are processed on requisition, [id number]. Procedures Procedure Name Priority Date/Time Associated Diagnosis Comments HEMOGLOBIN A1C Stat 04/25/2022 3:22 AM CDT LIPID PANEL Routine 04/20/2021 5:30 AM CDT MICROALBUMIN/CREATIN INE RATIO, RANDOM UR Routine 06/26/2014 Diabetes mellitus ([facility]) from Last 3 Months or Most Recently Relevant to Health Maintenance Results * (ABNORMAL) HEMOGLOBIN A1C (04/25/2022 3:22 AM CDT) HEMOGLOBIN A1C 8.2(H) <=5.6 % 04/25/2022 4:13 AM CDT [facility] [place] EST. AVG GLUCOSE, A1C 189 mg/dL 04/25/2022 4:13 AM CDT [facility] Blood Venipuncture / Unknown 04/25/2022 3:22 AM CDT 04/25/2022 3:43 AM CDT Narrative [facility] - 04/25/2022 4:13 AM CDT HGB A1C INTERPRETATION NORMAL: <5.7% PRE-DIABETES: 5.7 - 6.4% DIABETES: 6.5% OR GREATER us Alphonse Samson MD CHEMISTRY ORDERABLES Final Result [facility] CLIA # [id number] [address] [place] [id number] * (ABNORMAL) LIPID PANEL (04/20/2021 5:30 AM CDT) CHOLESTEROL 166 <200 mg/dL 04/20/2021 6:55 AM T [facility] TRIGLYCERIDE 83 <150 mg/dL 04/20/2021 6:55 AM T [facility] HDL 40 40 - 59 mg/dL 04/20/2021 6:55 AM T [facility] LDL CALCULATED 109(H) <100 mg/dL 04/20/2021 6:55 AM T [facility] NON-HDL CHOLESTEROL 126 <130 mg/dL 04/20/2021 6:55 AM T [facility] Blood Venipuncture / Unknown 04/20/2021 5:30 AM CDT 04/20/2021 6:21 AM CDT [facility] - 04/20/2021 6:55 AM CDT TOTAL CHOLESTEROL [...] Reference Ranges for Lipid Panels (NCEP/AMA) . [facility] Tawana Kelly MD CHEMISTRY ORDERABLES Final Result [facility] [employer] [facility]# [id number] [address] [facility] [place] [id number] * MICROALBUMIN/CREATININE RATIO, RANDOM UR (06/26/2014) Urine specimen (specimen) us Orquidea Delgado MD URINE ORDERABLES Final Result [facility] [place] [employer] # [id number] [address] [place] [address] from Last 3 Months or Most Recently Relevant to Health Maintenance Additional Health Concerns Infection Onset Date Last Indicated MRSA Comment:hx MRSA documented per 12/22/17 infectious disease screening form - Cierra Becker RN 12/24/2017 05/09/2024 Insurance MEDICAID [facility] MEDICARE Advance Directives For more information, please contact: [phone] * Full Code (Latest Code Status on File) Date Activated Date Inactivated Comments 04/25/2022 2:46 AM 04/29/2022 5:00 PM * Full Code Date Activated Date Inactivated Comments 05/08/2021 5:35 PM 05/24/2021 5:02 PM * Full Code Date Activated Date Inactivated Comments 03/27/2021 7:30 AM 05/08/2021 5:20 PM Care Teams Family Engagement Specialist Relationship Specialty Start Date End Date Arnoldo Gary MD [address] [place] [id number] PCP - General Internal Medicine 03/27/21
--- OUTSIDE RECORDS SUMMARY | 2024-10-29 07:22 | XMS_ITS | Clinical Summary ---
Author Organization [facility] er Address [address] [place] [address] Care Team Providers Care Brick Tender Name Role Phone Donte Lucas Primary Care [...] hematuria 09/22/2021 Coronary artery disease invo lving [place] coronary artery of [place] heart without angina pectoris 09/22/2021 Chronic pain [...] Date Type Department Care Team Description 10/28/2024 Hospital Encounter [facility] ADMIT [address] [place] [phone] Trevor Rollins MD 10/28/2024 Orders Only [facility] Hospitalists [address] [place] [phone] Trevor Rollins MD 09/13/2024 1:12 AM CLINIC MD ASSOCIATE - 10/01/2024 5:21 PM CLINIC MD ASSOCIATE Hospital Encounter [address] [phone] Abeba Ash MD Striker, David A., MD [...] home health skilled care 08/26/2024 9:30 AM CLINIC MD ASSOCIATE Office Visit [facility] Neurology [address] [place] [phone] Kaleb Davenport Si, MD Cerebrovascular accident [...] Relation Name Comments Diabetes Mother Diabetes mellit ; Heart disease Mother Heart disease; Relation Name Status Comments Mother Social History Tobacco Use Types Packs/Day Years Used Date Smoking Tobacco: Every Day Smokeless Tobacco: Never Comments:Smoking History Pac ks/day: 1 Packs Alcohol Use Standard Drinks/Week Comments No 0 (1 standard drink = 0.6 oz pur e alcohol) [facility] Utilities Answer Date Recorded In the past 12 months has e electric, gas, oil, or water [employer] threatened to shut off services in your [...] often do you attend chur ch or protestant services? Never 09/13/2024 Do you belong to any clubs o r organizations such as yarsani groups, unions, fraternal or athletic groups, or [...] any time in the past 12 m [facility], were you homeless or living in a jail (including now)? No 09/13/2024 Personal Safety Answer Date Recorded Have you ever been in or are you currently in a harmful physical or emotional relationship or is someone making you feel afraid or unsafe? Patient unable to answer 09/13/2024 Comments No Sex and Gender Information Value Date Recorded Sex Assigned at Not on file Legal Sex Female 11:01 PM CLINIC MD ASSOCIATE Gender Identity Not on file Sexual Orientation Not on file Obstetrics History Last Filed Vital Signs Vital Sign Reading Time Taken Comments Blood Pressure 148/70 10/01/2024 6:07 AM CLINIC MD ASSOCIATE Pulse 74 10/01/2024 3:00 PM CLINIC MD ASSOCIATE Temperature 36.4 C (97.6 F) 10/01/2024 3:07 AM CLINIC MD ASSOCIATE Respiratory Rate 18 10/01/2024 3:07 AM CLINIC MD ASSOCIATE Oxygen Saturation 93% 10/01/2024 2:52 PM CLINIC MD ASSOCIATE Inhaled Oxygen Concentration - - Weight 110.3 kg (243 lb 2.7 oz) 09/23/2024 8:41 PM CLINIC MD ASSOCIATE Height 165.1 cm (5' 5 ) 09/23/2024 8:41 PM CLINIC MD ASSOCIATE Body Mass Index 40.47 09/23/2024 8:41 PM CLINIC MD ASSOCIATE Plan of Treatment Health Maintenance Due Date [...] GLUCOSE DEVICE Routine 10/01/2024 4 :34 PM CLINIC MD ASSOCIATE POCT GLUCOSE DEVICE Routine 10/01/2024 11:48 AM CLINIC MD ASSOCIATE XR CHEST 1 VIEW IP Routine 10/01/2024 9:10 AM CLINIC MD ASSOCIATE EGFR Routine 10/01/2024 6:57 AM CLINIC MD ASSOCIATE BASIC METABOLIC PANEL Routine 10/01/2024 6:57 AM CLINIC MD ASSOCIATE MAGNESIUM Routine 10/01/2024 6:57 AM CLINIC MD ASSOCIATE POCT GLUCOSE DEVICE Routine 10/01/2024 6 :04 AM CLINIC MD ASSOCIATE POCT GLUCOSE DEVICE Routine 10/01/2024 2 :00 AM CLINIC MD ASSOCIATE POCT GLUCOSE DEVICE Routine 09/30/2024 9 :45 PM CLINIC MD ASSOCIATE POCT GLUCOSE DEVICE Routine 09/30/2024 4 :52 PM CLINIC MD ASSOCIATE POCT GLUCOSE DEVICE Routine 09/30/2024 11:39 AM CLINIC MD ASSOCIATE POCT GLUCOSE DEVICE Routine 09/30/2024 8 :36 AM CLINIC MD ASSOCIATE POCT GLUCOSE DEVICE Routine 09/30/2024 5 :29 AM CLINIC MD ASSOCIATE POCT GLUCOSE DEVICE Routine 09/30/2024 2 :22 AM CLINIC MD ASSOCIATE POCT GLUCOSE DEVICE Routine 09/29/2024 8 :35 PM CLINIC MD ASSOCIATE POCT GLUCOSE DEVICE Routine 09/29/2024 5 :35 PM CLINIC MD ASSOCIATE EGFR Routine 09/29/2024 3:33 PM CLINIC MD ASSOCIATE DIFFERENTIAL AUTO Routine 09/29/2024 3:3 3 PM CLINIC MD ASSOCIATE COMPREHENSIVE METABOLIC PANEL Routine 09/29/2024 3:33 PM CLINIC MD ASSOCIATE CBC WITH AUTO DIFFERENTIAL Routine 09/29/2024 3:33 PM CLINIC MD ASSOCIATE POCT GLUCOSE DEVICE Routine 09/29/2024 1 :43 PM CLINIC MD ASSOCIATE POCT GLUCOSE DEVICE Routine 09/29/2024 9 :49 AM CLINIC MD ASSOCIATE POCT GLUCOSE DEVICE Routine 09/29/2024 7 :27 AM CLINIC MD ASSOCIATE POCT GLUCOSE DEVICE Routine 09/29/2024 5 :31 AM CLINIC MD ASSOCIATE POCT GLUCOSE DEVICE Routine 09/29/2024 1 :25 AM CLINIC MD ASSOCIATE POCT GLUCOSE DEVICE Routine 09/28/2024 9 :14 PM CLINIC MD ASSOCIATE POCT GLUCOSE DEVICE Routine 09/28/2024 5 :12 PM CLINIC MD ASSOCIATE POCT GLUCOSE DEVICE Routine 09/28/2024 1 :43 PM CLINIC MD ASSOCIATE POCT GLUCOSE DEVICE Routine 09/28/2024 9 :16 AM CLINIC MD ASSOCIATE EGFR Routine 09/28/2024 7:09 AM CLINIC MD ASSOCIATE DIFFERENTIAL AUTO Routine 09/28/2024 7:0 9 AM CLINIC MD ASSOCIATE COMPREHENSIVE METABOLIC PANEL Routine 09/28/2024 7:09 AM CLINIC MD ASSOCIATE CBC WITH AUTO DIFFERENTIAL Routine 09/28/2024 7:09 AM CLINIC MD ASSOCIATE POCT GLUCOSE DEVICE Routine 09/28/2024 5 :42 AM CLINIC MD ASSOCIATE POCT GLUCOSE DEVICE Routine 09/28/2024 1 :31 AM CLINIC MD ASSOCIATE POCT GLUCOSE DEVICE Routine 09/27/2024 9 :14 PM CLINIC MD ASSOCIATE POCT GLUCOSE DEVICE Routine 09/27/2024 5 :25 PM CLINIC MD ASSOCIATE POCT GLUCOSE DEVICE Routine 09/27/2024 3 :13 PM CLINIC MD ASSOCIATE FL MODIFIED BARIUM SWALLOW W VIDEO IP Routine 09/27/2024 2:20 PM CLINIC MD ASSOCIATE POCT GLUCOSE DEVICE Routine 09/27/2024 10:05 AM CLINIC MD ASSOCIATE ADD ON LAB TEST Add-On 09/27/2024 8:43 AM CLINIC MD ASSOCIATE POCT GLUCOSE DEVICE Routine 09/27/2024 5 :57 AM CLINIC MD ASSOCIATE IRON PROFILE W/ IBC Routine 09/27/2024 5 :42 AM CLINIC MD ASSOCIATE EGFR Routine 09/27/2024 5:42 AM CLINIC MD ASSOCIATE DIFFERENTIAL AUTO Routine 09/27/2024 5:4 2 AM CLINIC MD ASSOCIATE COMPREHENSIVE METABOLIC PANEL Routine 09/27/2024 5:42 AM CLINIC MD ASSOCIATE CBC WITH AUTO DIFFERENTIAL Routine 09/27/2024 5:42 AM CLINIC MD ASSOCIATE POCT GLUCOSE DEVICE Routine 09/27/2024 2 :14 AM CLINIC MD ASSOCIATE POCT GLUCOSE DEVICE Routine 09/26/2024 9 :41 PM CLINIC MD ASSOCIATE POCT GLUCOSE DEVICE Routine 09/26/2024 6 :18 PM CLINIC MD ASSOCIATE POCT GLUCOSE DEVICE Routine 09/26/2024 2 :51 PM CLINIC MD ASSOCIATE CBC WITH AUTO DIFFERENTIAL STAT 09/26/2024 2:03 PM CLINIC MD ASSOCIATE EGFR Routine 09/26/2024 1:25 PM CLINIC MD ASSOCIATE DIFFERENTIAL AUTO Routine 09/26/2024 1:2 5 PM CLINIC MD ASSOCIATE COMPREHENSIVE METABOLIC PANEL Routine 09/26/2024 1:25 PM CLINIC MD ASSOCIATE CBC WITH AUTO DIFFERENTIAL Routine 09/26/2024 1:25 PM CLINIC MD ASSOCIATE POCT GLUCOSE DEVICE Routine 09/26/2024 10:10 AM CLINIC MD ASSOCIATE POCT GLUCOSE DEVICE Routine 09/26/2024 5 :04 AM CLINIC MD ASSOCIATE C. DIFFICILE TESTING Routine 09/26/2024 2:18 AM CLINIC MD ASSOCIATE POCT GLUCOSE DEVICE Routine 09/26/2024 12:01 AM CLINIC MD ASSOCIATE POCT GLUCOSE DEVICE Routine 09/25/2024 8 :35 PM CLINIC MD ASSOCIATE POCT GLUCOSE DEVICE Routine 09/25/2024 4 :36 PM CLINIC MD ASSOCIATE POCT GLUCOSE DEVICE Routine 09/25/2024 11:55 AM CLINIC MD ASSOCIATE POCT GLUCOSE DEVICE Routine 09/25/2024 8 :32 AM CLINIC MD ASSOCIATE EGFR Routine 09/25/2024 8:32 AM CLINIC MD ASSOCIATE DIFFERENTIAL AUTO Routine 09/25/2024 8:3 2 AM CLINIC MD ASSOCIATE COMPREHENSIVE METABOLIC PANEL Routine 09/25/2024 8:32 AM CLINIC MD ASSOCIATE CBC WITH AUTO DIFFERENTIAL Routine 09/25/2024 8:32 AM CLINIC MD ASSOCIATE POCT GLUCOSE DEVICE Routine 09/25/2024 4 :49 AM CLINIC MD ASSOCIATE POCT GLUCOSE DEVICE Routine 09/25/2024 12:48 AM CLINIC MD ASSOCIATE POCT GLUCOSE DEVICE Routine 09/24/2024 8 :56 PM CLINIC MD ASSOCIATE POCT GLUCOSE DEVICE Routine 09/24/2024 4 :20 PM CLINIC MD ASSOCIATE POCT GLUCOSE DEVICE Routine 09/24/2024 12:13 PM CLINIC MD ASSOCIATE XR CHEST 1 VIEW IP Routine 09/24/2024 8:18 AM CLINIC MD ASSOCIATE POCT GLUCOSE DEVICE Routine 09/24/2024 4 :12 AM CLINIC MD ASSOCIATE POCT GLUCOSE DEVICE Routine 09/24/2024 2 :44 AM CLINIC MD ASSOCIATE POCT GLUCOSE DEVICE Routine 09/24/2024 1 :06 AM CLINIC MD ASSOCIATE POCT GLUCOSE DEVICE Routine 09/24/2024 12:44 AM CLINIC MD ASSOCIATE POCT GLUCOSE DEVICE Routine 09/24/2024 12:22 AM CLINIC MD ASSOCIATE POCT GLUCOSE DEVICE Routine 09/23/2024 9 :34 PM CLINIC MD ASSOCIATE POCT GLUCOSE DEVICE Routine 09/23/2024 4 :10 PM CLINIC MD ASSOCIATE POCT GLUCOSE DEVICE Routine 09/23/2024 1 :10 PM CLINIC MD ASSOCIATE POCT GLUCOSE DEVICE Routine 09/23/2024 12:18 PM CLINIC MD ASSOCIATE POCT GLUCOSE DEVICE Routine 09/23/2024 11:55 AM CLINIC MD ASSOCIATE POCT GLUCOSE DEVICE Routine 09/23/2024 11:54 AM CLINIC MD ASSOCIATE POCT GLUCOSE DEVICE Routine 09/23/2024 7 :47 AM CLINIC MD ASSOCIATE POCT GLUCOSE DEVICE Routine 09/23/2024 3 :27 AM CLINIC MD ASSOCIATE POCT GLUCOSE DEVICE Routine 09/23/2024 1 :13 AM CLINIC MD ASSOCIATE POCT GLUCOSE DEVICE Routine 09/23/2024 12:17 AM CLINIC MD ASSOCIATE POCT GLUCOSE DEVICE Routine 09/22/2024 11:54 PM CLINIC MD ASSOCIATE BLOOD GAS, ARTERIAL STAT 09/22/2024 8 :33 PM CLINIC MD ASSOCIATE POCT GLUCOSE DEVICE Routine 09/22/2024 7 :46 PM CLINIC MD ASSOCIATE POCT GLUCOSE DEVICE Routine 09/22/2024 4 :04 PM CLINIC MD ASSOCIATE EXTUBATION Routine 09/22/2024 3:48 PM CLINIC MD ASSOCIATE POCT GLUCOSE DEVICE Routine 09/22/2024 11:51 AM CLINIC MD ASSOCIATE POCT GLUCOSE DEVICE Routine 09/22/2024 8 :42 AM CLINIC MD ASSOCIATE POCT GLUCOSE DEVICE Routine 09/22/2024 4 :05 AM CLINIC MD ASSOCIATE XR CHEST 1 VIEW IP Routine 09/22/2024 3:59 AM CLINIC MD ASSOCIATE EGFR Routine 09/22/2024 2:24 AM CLINIC MD ASSOCIATE CBC WITHOUT DIFFERENTIAL Routine 09/22/2024 2:24 AM CLINIC MD ASSOCIATE MAGNESIUM Routine 09/22/2024 2:24 AM CLINIC MD ASSOCIATE RENAL FUNCTION PANEL Routine 09/22/2024 2:24 AM CLINIC MD ASSOCIATE POCT GLUCOSE DEVICE Routine 09/21/2024 11:58 PM CLINIC MD ASSOCIATE POCT GLUCOSE DEVICE Routine 09/21/2024 7 :01 PM CLINIC MD ASSOCIATE POCT GLUCOSE DEVICE Routine 09/21/2024 3 :10 PM CLINIC MD ASSOCIATE POTASSIUM LEVEL STAT 09/21/2024 2:07 PM CLINIC MD ASSOCIATE POCT GLUCOSE DEVICE Routine 09/21/2024 11:30 AM CLINIC MD ASSOCIATE POCT GLUCOSE DEVICE Routine 09/21/2024 7 :19 AM CLINIC MD ASSOCIATE XR CHEST 1 VIEW IP Routine 09/21/2024 4:44 AM CLINIC MD ASSOCIATE POCT GLUCOSE DEVICE Routine 09/21/2024 3 :47 AM CLINIC MD ASSOCIATE EGFR Routine 09/21/2024 1:48 AM CLINIC MD ASSOCIATE PHOSPHORUS Routine 09/21/2024 1:48 AM CLINIC MD ASSOCIATE BILIRUBIN, DIRECT Routine 09/21/2024 1:4 8 AM CLINIC MD ASSOCIATE COMPREHENSIVE METABOLIC PANEL Routine 09/21/2024 1:48 AM CLINIC MD ASSOCIATE CBC WITHOUT DIFFERENTIAL Routine 09/21/2024 1:48 AM CLINIC MD ASSOCIATE MAGNESIUM Routine 09/21/2024 1:48 AM CLINIC MD ASSOCIATE POCT GLUCOSE DEVICE Routine 09/20/2024 11:54 PM CLINIC MD ASSOCIATE POCT GLUCOSE DEVICE Routine 09/20/2024 7 :03 PM CLINIC MD ASSOCIATE POCT GLUCOSE DEVICE Routine 09/20/2024 3 :28 PM CLINIC MD ASSOCIATE POCT GLUCOSE DEVICE Routine 09/20/2024 11:48 AM CLINIC MD ASSOCIATE BLOOD GAS, ARTERIAL STAT 09/20/2024 10:54 AM CLINIC MD ASSOCIATE XR CHEST 1 VIEW ED Urgent/IP Urgent 09/20/2024 9:17 AM CLINIC MD ASSOCIATE POCT GLUCOSE DEVICE Routine 09/20/2024 7 :20 AM CLINIC MD ASSOCIATE POCT GLUCOSE DEVICE Routine 09/20/2024 3 :37 AM CLINIC MD ASSOCIATE EGFR Routine 09/20/2024 12:27 AM CLINIC MD ASSOCIATE DIFFERENTIAL AUTO Routine 09/20/2024 12:27 AM CLINIC MD ASSOCIATE COMPREHENSIVE METABOLIC PANEL Routine 09/20/2024 12:27 AM CLINIC MD ASSOCIATE CBC WITH AUTO DIFFERENTIAL Routine 09/20/2024 12:27 AM CLINIC MD ASSOCIATE POCT GLUCOSE DEVICE Routine 09/19/2024 11:00 PM CLINIC MD ASSOCIATE POCT GLUCOSE DEVICE Routine 09/19/2024 7 :52 PM CLINIC MD ASSOCIATE POCT GLUCOSE DEVICE Routine 09/19/2024 4 :55 PM CLINIC MD ASSOCIATE POCT GLUCOSE DEVICE Routine 09/19/2024 12:31 PM CLINIC MD ASSOCIATE POTASSIUM LEVEL Timed 09/19/2024 10:04 AM CLINIC MD ASSOCIATE EEG Routine 09/19/2024 8:50 AM CLINIC MD ASSOCIATE POCT GLUCOSE DEVICE Routine 09/19/2024 7 :53 AM CLINIC MD ASSOCIATE POCT GLUCOSE DEVICE Routine 09/19/2024 3 :58 AM CLINIC MD ASSOCIATE MANUAL DIFFERENTIAL Routine 09/19/2024 1 :46 AM CLINIC MD ASSOCIATE EGFR Routine 09/19/2024 1:46 AM CLINIC MD ASSOCIATE DIFFERENTIAL AUTO Routine 09/19/2024 1:4 6 AM CLINIC MD ASSOCIATE CBC WITH AUTO DIFFERENTIAL Routine 09/19/2024 1:46 AM CLINIC MD ASSOCIATE MAGNESIUM Routine 09/19/2024 1:46 AM CLINIC MD ASSOCIATE PHOSPHORUS Routine 09/19/2024 1:46 AM CLINIC MD ASSOCIATE COMPREHENSIVE METABOLIC PANEL Routine 09/19/2024 1:46 AM CLINIC MD ASSOCIATE AMMONIA STAT 09/19/2024 1:07 AM CLINIC MD ASSOCIATE POCT GLUCOSE DEVICE Routine 09/18/2024 11:58 PM CLINIC MD ASSOCIATE POCT GLUCOSE DEVICE Routine 09/18/2024 9 :10 PM CLINIC MD ASSOCIATE POCT GLUCOSE DEVICE Routine 09/18/2024 4 :18 PM CLINIC MD ASSOCIATE POCT GLUCOSE DEVICE Routine 09/18/2024 12:07 PM CLINIC MD ASSOCIATE DIC SCHISTOCYTES STAT 09/18/2024 8:13 AM CLINIC MD ASSOCIATE DIC PLATELET STAT 09/18/2024 8:13 AM CLINIC MD ASSOCIATE DIFFERENTIAL AUTO STAT 09/18/2024 8:1 3 AM CLINIC MD ASSOCIATE CBC WITH AUTO DIFFERENTIAL STAT 09/18/2024 8:13 AM CLINIC MD ASSOCIATE DIC PROFILE Routine 09/18/2024 8:13 AM CLINIC MD ASSOCIATE POCT GLUCOSE DEVICE Routine 09/18/2024 7 :57 AM CLINIC MD ASSOCIATE POCT GLUCOSE DEVICE Routine 09/18/2024 7 :56 AM CLINIC MD ASSOCIATE EGFR Routine 09/18/2024 7:26 AM CLINIC MD ASSOCIATE VITAMIN B12 Routine 09/18/2024 7:26 AM CLINIC MD ASSOCIATE PHOSPHORUS Routine 09/18/2024 7:26 AM CLINIC MD ASSOCIATE MAGNESIUM Routine 09/18/2024 7:26 AM CLINIC MD ASSOCIATE COMPREHENSIVE METABOLIC PANEL Routine 09/18/2024 7:26 AM CLINIC MD ASSOCIATE POCT GLUCOSE DEVICE Routine 09/18/2024 4 :28 AM CLINIC MD ASSOCIATE DIC COAGULATION Routine 09/18/2024 4:20 AM CLINIC MD ASSOCIATE POCT GLUCOSE DEVICE Routine 09/17/2024 11:57 PM CLINIC MD ASSOCIATE POCT GLUCOSE DEVICE Routine 09/17/2024 8 :02 PM CLINIC MD ASSOCIATE POCT GLUCOSE DEVICE Routine 09/17/2024 4 :21 PM CLINIC MD ASSOCIATE EGFR Timed 09/17/2024 2:52 PM CLINIC MD ASSOCIATE RENAL FUNCTION PANEL Timed 09/17/2024 2:52 PM CLINIC MD ASSOCIATE POCT GLUCOSE DEVICE Routine 09/17/2024 12:23 PM CLINIC MD ASSOCIATE POCT GLUCOSE DEVICE Routine 09/17/2024 7 :09 AM CLINIC MD ASSOCIATE POCT GLUCOSE DEVICE Routine 09/17/2024 4 :42 AM CLINIC MD ASSOCIATE MANUAL DIFFERENTIAL Routine 09/17/2024 4 :10 AM CLINIC MD ASSOCIATE EGFR Routine 09/17/2024 4:10 AM CLINIC MD ASSOCIATE HAPTOGLOBIN Routine 09/17/2024 4:10 AM CLINIC MD ASSOCIATE THYROID FUNCTION CASCADE Routine 09/17/2024 4:10 AM CLINIC MD ASSOCIATE MAGNESIUM Routine 09/17/2024 4:10 AM CLINIC MD ASSOCIATE PHOSPHORUS Routine 09/17/2024 4:10 AM CLINIC MD ASSOCIATE CBC WITH AUTO DIFFERENTIAL Routine 09/17/2024 4:10 AM CLINIC MD ASSOCIATE COMPREHENSIVE METABOLIC PANEL Routine 09/17/2024 4:10 AM CLINIC MD ASSOCIATE XR CHEST 1 VIEW IP Routine 09/17/2024 2:59 AM CLINIC MD ASSOCIATE POCT GLUCOSE DEVICE Routine 09/16/2024 11:48 PM CLINIC MD ASSOCIATE POCT GLUCOSE DEVICE Routine 09/16/2024 8 :12 PM CLINIC MD ASSOCIATE POCT GLUCOSE DEVICE Routine 09/16/2024 4 :04 PM CLINIC MD ASSOCIATE POCT GLUCOSE DEVICE Routine 09/16/2024 12:27 PM CLINIC MD ASSOCIATE US VEIN DUPLEX LOWER EXTREMITY BILATERAL COMPLETE IP Routine 09/16/2024 11:24 AM CLINIC MD ASSOCIATE NH INSJ NON-TUNNELED CENTRAL VENOUS CATH AGE 5 YR/> Routine 09/16/2024 8:53 AM CLINIC MD ASSOCIATE MSSA bacteremia BLOOD CULTURE STAT 09/16/2024 8:53 AM CLINIC MD ASSOCIATE BLOOD CULTURE STAT 09/16/2024 8:45 AM CLINIC MD ASSOCIATE POCT GLUCOSE DEVICE Routine 09/16/2024 7 :33 AM CLINIC MD ASSOCIATE MANUAL DIFFERENTIAL STAT 09/16/2024 5 :30 AM CLINIC MD ASSOCIATE CBC WITH AUTO DIFFERENTIAL STAT 09/16/2024 5:30 AM CLINIC MD ASSOCIATE POCT GLUCOSE DEVICE Routine 09/16/2024 5 :23 AM CLINIC MD ASSOCIATE XR CHEST 1 VIEW Routine 09/16/2024 4:37 AM CLINIC MD ASSOCIATE TRIGLYCERIDES Routine 09/16/2024 4:05 AM CLINIC MD ASSOCIATE EGFR Routine 09/16/2024 4:05 AM CLINIC MD ASSOCIATE MAGNESIUM Routine 09/16/2024 4:05 AM CLINIC MD ASSOCIATE RENAL FUNCTION PANEL Routine 09/16/2024 4:05 AM CLINIC MD ASSOCIATE BLOOD CULTURE STAT 09/16/2024 4:05 AM CLINIC MD ASSOCIATE POCT GLUCOSE DEVICE Routine 09/16/2024 3 :45 AM CLINIC MD ASSOCIATE MRI BRAIN WO CONTRAST IP Routine 09/16/2024 1:48 AM CLINIC MD ASSOCIATE POCT GLUCOSE DEVICE Routine 09/16/2024 1 :06 AM CLINIC MD ASSOCIATE POCT GLUCOSE DEVICE Routine 09/16/2024 12:01 AM CLINIC MD ASSOCIATE POCT GLUCOSE DEVICE Routine 09/15/2024 9 :09 PM CLINIC MD ASSOCIATE POCT GLUCOSE DEVICE Routine 09/15/2024 7 :41 PM CLINIC MD ASSOCIATE POCT GLUCOSE DEVICE Routine 09/15/2024 5 :12 PM CLINIC MD ASSOCIATE POCT GLUCOSE DEVICE Routine 09/15/2024 3 :05 PM CLINIC MD ASSOCIATE AEROBIC CULTURE AND GRAM STAIN Routine 09/15/2024 1:57 PM CLINIC MD ASSOCIATE TRANSESOPHAGEAL ECHO (DEMI) W DOPPLER/CF WO CONTRAST Routine 09/15/2024 1:43 PM CLINIC MD ASSOCIATE POCT GLUCOSE DEVICE Routine 09/15/2024 1 :05 PM CLINIC MD ASSOCIATE XR CHEST 1 VIEW Critical/Life- Threatening 09/15/2024 11:41 AM CLINIC MD ASSOCIATE BLOOD GAS, ARTERIAL STAT 09/15/2024 11:34 AM CLINIC MD ASSOCIATE POCT GLUCOSE DEVICE Routine 09/15/2024 11:07 AM CLINIC MD ASSOCIATE INTUBATION Routine 09/15/2024 10:31 AM CLINIC MD ASSOCIATE Toxic metabolic encephalopathy MONITOR EXHALED CO2 Routine 09/15/2024 10:30 AM CLINIC MD ASSOCIATE POCT GLUCOSE DEVICE Routine 09/15/2024 9 :16 AM CLINIC MD ASSOCIATE POCT GLUCOSE DEVICE Routine 09/15/2024 7 :06 AM CLINIC MD ASSOCIATE POCT GLUCOSE DEVICE Routine 09/15/2024 5 :27 AM CLINIC MD ASSOCIATE POCT GLUCOSE DEVICE Routine 09/15/2024 3 :51 AM CLINIC MD ASSOCIATE APTT Timed 09/15/2024 3:48 AM CLINIC MD ASSOCIATE XR CHEST 1 VIEW IP Routine 09/15/2024 3:41 AM CLINIC MD ASSOCIATE EGFR Routine 09/15/2024 1:50 AM CLINIC MD ASSOCIATE PHOSPHORUS Routine 09/15/2024 1:50 AM CLINIC MD ASSOCIATE BILIRUBIN, DIRECT Routine 09/15/2024 1:5 0 AM CLINIC MD ASSOCIATE COMPREHENSIVE METABOLIC PANEL Routine 09/15/2024 1:50 AM CLINIC MD ASSOCIATE CBC WITHOUT DIFFERENTIAL Routine 09/15/2024 1:50 AM CLINIC MD ASSOCIATE MAGNESIUM Routine 09/15/2024 1:50 AM CLINIC MD ASSOCIATE POCT GLUCOSE DEVICE Routine 09/15/2024 12:53 AM CLINIC MD ASSOCIATE POCT GLUCOSE DEVICE Routine 09/14/2024 11:15 PM CLINIC MD ASSOCIATE APTT Timed 09/14/2024 9:19 PM CLINIC MD ASSOCIATE POCT GLUCOSE DEVICE Routine 09/14/2024 9 :16 PM CLINIC MD ASSOCIATE POCT GLUCOSE DEVICE Routine 09/14/2024 7 :20 PM CLINIC MD ASSOCIATE POCT GLUCOSE DEVICE Routine 09/14/2024 6 :16 PM CLINIC MD ASSOCIATE POCT GLUCOSE DEVICE Routine 09/14/2024 4 :55 PM CLINIC MD ASSOCIATE POCT GLUCOSE DEVICE Routine 09/14/2024 4 :10 PM CLINIC MD ASSOCIATE POCT GLUCOSE DEVICE Routine 09/14/2024 3 :03 PM CLINIC MD ASSOCIATE EGFR Timed 09/14/2024 1:05 PM CLINIC MD ASSOCIATE RENAL FUNCTION PANEL Timed 09/14/2024 1:05 PM CLINIC MD ASSOCIATE APTT Timed 09/14/2024 1:05 PM CLINIC MD ASSOCIATE POCT GLUCOSE DEVICE Routine 09/14/2024 12:55 PM CLINIC MD ASSOCIATE POCT GLUCOSE DEVICE Routine 09/14/2024 12:01 PM CLINIC MD ASSOCIATE POCT GLUCOSE DEVICE Routine 09/14/2024 11:05 AM CLINIC MD ASSOCIATE POCT GLUCOSE DEVICE Routine 09/14/2024 10:04 AM CLINIC MD ASSOCIATE BLOOD CULTURE STAT 09/14/2024 9:42 AM CLINIC MD ASSOCIATE BLOOD CULTURE STAT 09/14/2024 9:42 AM CLINIC MD ASSOCIATE POCT GLUCOSE DEVICE Routine 09/14/2024 8 :56 AM CLINIC MD ASSOCIATE BLOOD GAS, ARTERIAL STAT 09/14/2024 8 :08 AM CLINIC MD ASSOCIATE POCT GLUCOSE DEVICE Routine 09/14/2024 7 :50 AM CLINIC MD ASSOCIATE APTT Timed 09/14/2024 6:06 AM CLINIC MD ASSOCIATE POCT GLUCOSE DEVICE Routine 09/14/2024 4 :10 AM CLINIC MD ASSOCIATE XR CHEST 1 VIEW IP Routine 09/14/2024 3:10 AM CLINIC MD ASSOCIATE MANUAL DIFFERENTIAL Routine 09/14/2024 1 :59 AM CLINIC MD ASSOCIATE EGFR Routine 09/14/2024 1:59 AM CLINIC MD ASSOCIATE PHOSPHORUS Routine 09/14/2024 1:59 AM CLINIC MD ASSOCIATE BILIRUBIN, DIRECT Routine 09/14/2024 1:5 9 AM CLINIC MD ASSOCIATE COMPREHENSIVE METABOLIC PANEL Routine 09/14/2024 1:59 AM CLINIC MD ASSOCIATE CBC WITHOUT DIFFERENTIAL Routine 09/14/2024 1:59 AM CLINIC MD ASSOCIATE MAGNESIUM Routine 09/14/2024 1:59 AM CLINIC MD ASSOCIATE POCT GLUCOSE DEVICE Routine 09/14/2024 12:41 AM CLINIC MD ASSOCIATE APTT Timed 09/13/2024 9:58 PM CLINIC MD ASSOCIATE XR ABDOMEN ERECT AND OR DECUBITS 2 VIEWS IP Routine 09/13/2024 9:41 PM CLINIC MD ASSOCIATE POCT GLUCOSE DEVICE Routine 09/13/2024 7 :57 PM CLINIC MD ASSOCIATE EGFR Timed 09/13/2024 6:33 PM CLINIC MD ASSOCIATE RENAL FUNCTION PANEL Timed 09/13/2024 6:33 PM CLINIC MD ASSOCIATE ECG 12-LEAD STAT 09/13/2024 5:24 PM CLINIC MD ASSOCIATE POCT GLUCOSE DEVICE Routine 09/13/2024 4 :29 PM CLINIC MD ASSOCIATE POCT GLUCOSE DEVICE Routine 09/13/2024 3 :18 PM CLINIC MD ASSOCIATE POCT GLUCOSE DEVICE Routine 09/13/2024 2 :29 PM CLINIC MD ASSOCIATE APTT Timed 09/13/2024 2:28 PM CLINIC MD ASSOCIATE POCT GLUCOSE DEVICE Routine 09/13/2024 1 :10 PM CLINIC MD ASSOCIATE EGFR Timed 09/13/2024 12:22 PM CLINIC MD ASSOCIATE PHOSPHORUS Timed 09/13/2024 12:22 PM CLINIC MD ASSOCIATE MAGNESIUM Timed 09/13/2024 12:22 PM CLINIC MD ASSOCIATE BASIC METABOLIC PANEL Timed 09/13/2024 12:22 PM CLINIC MD ASSOCIATE POCT GLUCOSE DEVICE Routine 09/13/2024 12:20 PM CLINIC MD ASSOCIATE US CAROTIDS DUPLEX BILATERAL IP Routine 09/13/2024 11:55 AM CLINIC MD ASSOCIATE TRANSTHORACIC ECHO (TTE) COMPLETE W DOPPLER/CF W CONTRAST Routine 09/13/2024 11:24 AM CLINIC MD ASSOCIATE POCT GLUCOSE DEVICE Routine 09/13/2024 11:12 AM CLINIC MD ASSOCIATE URINALYSIS, MICROSCOPIC ONLY Routine 09/13/2024 9:45 AM CLINIC MD ASSOCIATE DIC SCHISTOCYTES STAT 09/13/2024 9:45 AM CLINIC MD ASSOCIATE DIC PLATELET STAT 09/13/2024 9:45 AM CLINIC MD ASSOCIATE DIC COAGULATION STAT 09/13/2024 9:45 AM CLINIC MD ASSOCIATE DRUGS OF ABUSE SCREEN, URINE WITHOUT CONFIRMATION Routine 09/13/2024 9:45 AM CLINIC MD ASSOCIATE HIT ANTIBODIES W/REFLEX TO SEROTONIN RELEASE ASSAY ([facility]) Routine 09/13/2024 9:45 AM CLINIC MD ASSOCIATE DIC PROFILE STAT 09/13/2024 9:45 AM CLINIC MD ASSOCIATE AMMONIA STAT 09/13/2024 9:45 AM CLINIC MD ASSOCIATE URINE CULTURE Routine 09/13/2024 9:45 AM CLINIC MD ASSOCIATE URINALYSIS AND REFLEX TO MICROSCOPIC AND CULTURE Routine 09/13/2024 9:45 AM CLINIC MD ASSOCIATE POCT GLUCOSE DEVICE Routine 09/13/2024 9 :31 AM CLINIC MD ASSOCIATE ADD ON LAB TEST Add-On 09/13/2024 9:25 AM CLINIC MD ASSOCIATE ADD ON LAB TEST Add-On 09/13/2024 9:25 AM CLINIC MD ASSOCIATE XR CHEST 1 VIEW Critical/Life- Threatening 09/13/2024 8:30 AM CLINIC MD ASSOCIATE LIPASE Timed 09/13/2024 8:11 AM CLINIC MD ASSOCIATE AMYLASE Timed 09/13/2024 8:11 AM CLINIC MD ASSOCIATE BETA-HYDROXYBUTYRATE Timed 09/13/2024 8:11 AM CLINIC MD ASSOCIATE EGFR Timed 09/13/2024 8:11 AM CLINIC MD ASSOCIATE APTT Timed 09/13/2024 8:11 AM CLINIC MD ASSOCIATE PHOSPHORUS Timed 09/13/2024 8:11 AM CLINIC MD ASSOCIATE MAGNESIUM Timed 09/13/2024 8:11 AM CLINIC MD ASSOCIATE BASIC METABOLIC PANEL Timed 09/13/2024 8:11 AM CLINIC MD ASSOCIATE BLOOD GAS, ARTERIAL STAT 09/13/2024 7 :58 AM CLINIC MD ASSOCIATE POCT GLUCOSE DEVICE Routine 09/13/2024 7 :54 AM CLINIC MD ASSOCIATE POCT GLUCOSE DEVICE Routine 09/13/2024 6 :04 AM CLINIC MD ASSOCIATE BLOOD CULTURE Routine 09/13/2024 5:22 AM CLINIC MD ASSOCIATE POCT GLUCOSE DEVICE Routine 09/13/2024 5 :06 AM CLINIC MD ASSOCIATE POCT GLUCOSE DEVICE Routine 09/13/2024 4 :05 AM CLINIC MD ASSOCIATE CT HEAD WO CONTRAST ED Urgent/IP Urgent 09/13/2024 3:40 AM CLINIC MD ASSOCIATE POCT GLUCOSE DEVICE Routine 09/13/2024 3 :15 AM CLINIC MD ASSOCIATE URINALYSIS, MICROSCOPIC ONLY Routine 09/13/2024 2:59 AM CLINIC MD ASSOCIATE URINE CULTURE Routine 09/13/2024 2:59 AM CLINIC MD ASSOCIATE URINALYSIS AND REFLEX TO MICROSCOPIC AND CULTURE Routine 09/13/2024 2:59 AM CLINIC MD ASSOCIATE POCT GLUCOSE DEVICE Routine 09/13/2024 2 :03 AM CLINIC MD ASSOCIATE ECG 12-LEAD STAT 09/13/2024 1:58 AM CLINIC MD ASSOCIATE RESPIRATORY PATHOGEN PANEL Routine 09/13/2024 1:50 AM CLINIC MD ASSOCIATE BLOOD CULTURE Routine 09/13/2024 1:50 AM CLINIC MD ASSOCIATE EGFR STAT 09/13/2024 1:46 AM CLINIC MD ASSOCIATE DIFFERENTIAL AUTO STAT 09/13/2024 1:4 6 AM CLINIC MD ASSOCIATE HEMOGLOBIN A1C Routine 09/13/2024 1:46 AM CLINIC MD ASSOCIATE TROPONIN T HIGH-SENSITIVITY Routine 09/13/2024 1:46 AM CLINIC MD ASSOCIATE CBC WITH AUTO DIFFERENTIAL STAT 09/13/2024 1:46 AM CLINIC MD ASSOCIATE PROTIME-INR STAT 09/13/2024 1:46 AM CLINIC MD ASSOCIATE APTT STAT 09/13/2024 1:46 AM CLINIC MD ASSOCIATE PRO B-TYPE NATRIURETIC PEPTIDE STAT 09/13/2024 1:46 AM CLINIC MD ASSOCIATE PHOSPHORUS STAT 09/13/2024 1:46 AM CLINIC MD ASSOCIATE MAGNESIUM STAT 09/13/2024 1:46 AM CLINIC MD ASSOCIATE LACTATE STAT 09/13/2024 1:46 AM CLINIC MD ASSOCIATE COMPREHENSIVE METABOLIC PANEL STAT 09/13/2024 1:46 AM CLINIC MD ASSOCIATE TYPE AND SCREEN STAT 09/13/2024 1:46 AM CLINIC MD ASSOCIATE POCT GLUCOSE DEVICE Routine 09/13/2024 1 :30 AM CLINIC MD ASSOCIATE SERUM LIPID PANEL Routine 06/26/2014 8:1 1 AM CLINIC MD ASSOCIATE COLONOSCOPY REPORT 06/07/2014 from Last 3 Months or Most Recently Relevant to Health Maintenance Results * POCT glucose (10/01/2024 4:34 PM CLINIC MD ASSOCIATE) [facility] Signature Glucose, POC 143 70 - 199 mg/dL Comment: For Glucose values <35 mg/dl when Hematocrit is >60 mg/dl,the test may not accurately detect significant hypoglycemia,and testing in the Laboratory should be considered if clinically indicated. Blood 10/01/2024 4:34 PM CLINIC MD ASSOCIATE 10/01/2024 4:34 PM CLINIC MD ASSOCIATE Chai Beck MD LAB POCT ORDERABLES - DEVICE Final Result Performing Organization Address [facility] Co de Phone Number [facility] [address] Department [place] [address] * POCT glucose (10/01/2024 11:48 AM CLINIC MD ASSOCIATE) [facility] Signature Glucose, POC 145 70 - 199 mg/dL Comment: For Glucose values <35 mg/dl when Hematocrit is >60 mg/dl,the test may not accurately detect significant hypoglycemia,and testing in the Laboratory should be considered if clinically indicated. Blood 10/01/2024 11:4 8 AM CLINIC MD ASSOCIATE 10/01/2024 11:48 AM CLINIC MD ASSOCIATE Chai Beck MD LAB POCT ORDERABLES - DEVICE Final Result Performing Organization Address [facility] Co de Phone Number [facility] [address] Department [place] [address] * XR Chest 1 View (10/01/2024 9:10 AM CLINIC MD ASSOCIATE) Anatomical Region Laterality Modality Body, Chest N/A Computed Radiogr aphy 10/01/2024 9:17 AM CLINIC MD ASSOCIATE Impressions 10/01/2024 9:17 AM CLINIC MD ASSOCIATE Comparison 09/24/2024 Improvement in the left lower lobe and lingular consolidation. There is now a small left pleural effusion. Right lung is clear. There is no pneumothorax. The cardiomediastinal silhouette is unchanged.. Electronically signed by: Phillip Mathis MD Narrative 10/01/2024 9:17 AM CLINIC MD ASSOCIATE Chest one view HISTORY: Recent pneumonia treated [...] t * (ABNORMAL) eGFR (10/01/2024 6:57 AM CLINIC MD ASSOCIATE) eGFR 54(L) >=60 mL/min/1. 73 m2 Comment: [...] last reviewed 2021. Blood 10/01/2024 6:57 AM CLINIC MD ASSOCIATE 10/01/2024 7:30 AM CLINIC MD ASSOCIATE Timothy Augustin MD LAB BLOOD ORDERABLES Final Re sult [facility] [address] Department [place] [address] * Magnesium (10/01/2024 6:57 AM CLINIC MD ASSOCIATE) Magnesium 1.5 1.4 - 2.5 mg/dL Blood 10/01/2024 6:57 AM CLINIC MD ASSOCIATE 10/01/2024 7:30 AM CLINIC MD ASSOCIATE Arnulfo Jordan MD LAB BLOOD ORDERABLES Final Result Performing Organization Address [facility]/ZIP Co de Phone Number [facility] [address] [place] [address] * (ABNORMAL) Basic metabolic panel (10/01/2024 6:57 AM CLINIC MD ASSOCIATE) [facility] Sodium 140 135 - 145 mmol/L Potassium, pl 2.9(L) 3.3 - 4.9 mmol/L [facility] Chloride 108 97 - 110 mmol/L [facility] CO2 22 22 - 32 mmol/L [facility] Anion gap 10 2 - 15 mmol/L [facility] BUN 22 6 - 25 mg/dL [facility] Creatinine 1.23(H) 0.60 - 1.10 mg/dL [facility] Glucose 162 70 - 199 mg/dL [facility] Comment: Interpretive Data Fasting glucose >/= [...] 2022. Calcium 8.0(L) 8.5 - 10.3 mg/dL [facility] Blood 10/01/2024 6:57 AM CLINIC MD ASSOCIATE 10/01/2024 7:30 AM CLINIC MD ASSOCIATE Timothy Augustin MD LAB BLOOD ORDERABLES Final Re sult Performing Organization Address [facility] Co de Phone Number [facility] [address] [place] [address] * POCT glucose (10/01/2024 6:04 AM CLINIC MD ASSOCIATE) Glucose, POC 179 70 - 199 mg/dL Comment: For Glucose values <35 mg/dl when Hematocrit is >60 mg/dl,the test may not accurately detect significant hypoglycemia,and testing in the Laboratory should be considered if clinically indicated. Blood 10/01/2024 6:04 AM CLINIC MD ASSOCIATE 10/01/2024 6:04 AM CLINIC MD ASSOCIATE Result [facility] Arnulfo Jordan MD LAB POCT ORDERABLES - DEVIC E Final Result Performing Organization Address [facility] de Phone Number [facility] [address] [facility] [place] [address] * POCT glucose (10/01/2024 2:00 AM CLINIC MD ASSOCIATE) Glucose, POC 168 70 - 199 mg/dL Comment: For Glucose values <35 mg/dl when Hematocrit is >60 mg/dl,the test may not accurately detect significant hypoglycemia,and testing in the Laboratory should be considered if clinically indicated. Blood 10/01/2024 2:00 AM CLINIC MD ASSOCIATE 10/01/2024 2:00 AM CLINIC MD ASSOCIATE Result [facility] Arnulfo Jordan MD LAB POCT ORDERABLES - DEVIC E Final Result Performing Organization Address [facility] Co de Phone Number [facility] [address] Department [place] [address] * POCT glucose (09/30/2024 9:45 PM CLINIC MD ASSOCIATE) Glucose, POC 173 70 - 199 mg/dL Comment: For Glucose values <35 mg/dl when Hematocrit is >60 mg/dl,the test may not accurately detect significant hypoglycemia,and testing in the Laboratory should be considered if clinically indicated. Blood 09/30/2024 9:45 PM CLINIC MD ASSOCIATE 09/30/2024 9:45 PM CLINIC MD ASSOCIATE Result [facility] Arnulfo Jordan MD LAB POCT ORDERABLES - DEVIC E Final Result Performing Organization Address [facility] Co de Phone Number [facility] [address] [facility] [place], [place] [id number] * (ABNORMAL) POCT glucose (09/30/2024 4:52 PM CLINIC MD ASSOCIATE) Glucose, POC 213(H) 70 - 199 mg/dL Comment: For Glucose values <35 mg/dl when Hematocrit is >60 mg/dl,the test may not accurately detect significant hypoglycemia,and testing in the Laboratory should be considered if clinically indicated. Blood 09/30/2024 4:52 PM CLINIC MD ASSOCIATE 09/30/2024 4:52 PM CLINIC MD ASSOCIATE Arnulfo Jordan MD LAB POCT ORDERABLES - DEVIC E Final Result Performing Organization Address [facility] de Phone Number [facility] [address] [facility] [place] [address] * POCT glucose (09/30/2024 11:39 AM CLINIC MD ASSOCIATE) Glucose, POC 139 70 - 199 mg/dL Comment: For Glucose values <35 mg/dl when Hematocrit is >60 mg/dl,the test may not accurately detect significant hypoglycemia,and testing in the Laboratory should be considered if clinically indicated. Blood 09/30/2024 11:3 9 AM CLINIC MD ASSOCIATE 09/30/2024 11:39 AM CLINIC MD ASSOCIATE Arnulfo Jordan MD LAB POCT ORDERABLES - DEVIC E Final Result Performing Organization Address [facility] Co de Phone Number [facility] [address] [facility] [place], [place] [id number] * POCT glucose (09/30/2024 8:36 AM CLINIC MD ASSOCIATE) Glucose, POC 116 70 - 199 mg/dL Comment: For Glucose values <35 mg/dl when Hematocrit is >60 mg/dl,the test may not accurately detect significant hypoglycemia,and testing in the Laboratory should be considered if clinically indicated. Blood 09/30/2024 8:36 AM CLINIC MD ASSOCIATE 09/30/2024 8:36 AM CLINIC MD ASSOCIATE Arnulfo Jordan MD LAB POCT ORDERABLES - DEVIC E Final Result Performing Organization Address [facility] Co de Phone Number [facility] [address] [facility] [place] [address] * POCT glucose (09/30/2024 5:29 AM CLINIC MD ASSOCIATE) Glucose, POC 110 70 - 199 mg/dL Comment: For Glucose values <35 mg/dl when Hematocrit is >60 mg/dl,the test may not accurately detect significant hypoglycemia,and testing in the Laboratory should be considered if clinically indicated. Blood 09/30/2024 5:29 AM CLINIC MD ASSOCIATE 09/30/2024 5:29 AM CLINIC MD ASSOCIATE Arnulfo Jordan MD LAB POCT ORDERABLES - DEVIC E Final Result Performing Organization Address [facility] de Phone Number [facility] [address] [place] [address] * POCT glucose (09/30/2024 2:22 AM CLINIC MD ASSOCIATE) Glucose, POC 183 70 - 199 mg/dL Comment: For Glucose values <35 mg/dl when Hematocrit is >60 mg/dl,the test may not accurately detect significant hypoglycemia,and testing in the Laboratory should be considered if clinically indicated. Blood 09/30/2024 2:22 AM CLINIC MD ASSOCIATE 09/30/2024 2:22 AM CLINIC MD ASSOCIATE Result [facility] Arnulfo Jordan MD LAB POCT ORDERABLES - DEVIC E Final Result Performing Organization Address [facility] Co de Phone Number [facility] [address] [place] [address] * POCT glucose (09/29/2024 8:35 PM CLINIC MD ASSOCIATE) Glucose, POC 192 70 - 199 mg/dL Comment: For Glucose values <35 mg/dl when Hematocrit is >60 mg/dl,the test may not accurately detect significant hypoglycemia,and testing in the Laboratory should be considered if clinically indicated. Blood 09/29/2024 8:35 PM CLINIC MD ASSOCIATE 09/29/2024 8:35 PM CLINIC MD ASSOCIATE Arnulfo Jordan MD LAB POCT ORDERABLES - DEVIC E Final Result Performing Organization Address [facility] de Phone Number [facility] [address] [facility] [place] [address] * (ABNORMAL) POCT glucose (09/29/2024 5:35 PM CLINIC MD ASSOCIATE) Glucose, POC 203(H) 70 - 199 mg/dL Comment: For Glucose values <35 mg/dl when Hematocrit is >60 mg/dl,the test may not accurately detect significant hypoglycemia,and testing in the Laboratory should be considered if clinically indicated. Blood 09/29/2024 5:35 PM CLINIC MD ASSOCIATE 09/29/2024 5:35 PM CLINIC MD ASSOCIATE Arnulfo Jordan MD LAB POCT ORDERABLES - DEVIC E Final Result Performing Organization Address [facility] de Phone Number [facility] [address] Department of [place], [place] [id number] * (ABNORMAL) eGFR (09/29/2024 3:33 PM CLINIC MD ASSOCIATE) eGFR 58(L) >=60 mL/min/1. 73 m2 Comment: [...] last reviewed 2021. Blood 09/29/2024 3:33 PM CLINIC MD ASSOCIATE 09/29/2024 3:45 PM CLINIC MD ASSOCIATE us Arnulfo Jordan MD LAB BLOOD ORDERABLES Final Result [facility] [address] Department [place] [address] * (ABNORMAL) Differential, auto (09/29/2024 3:33 PM CLINIC MD ASSOCIATE) Neutrophil abs 6.6(H) 1.5 - 6.5 K/cumm Imm gran abs 0.1 0.0 - 0.1 K/cumm [facility] Lymphocyte abs 0.9 0.8 - 3.3 K/cumm [facility] Monocyte abs 0.6 0.2 - 0.8 K/cumm [facility] Eosinophil abs 0.1 0.0 - 0.5 K/cumm [facility] Basophil abs 0.1 0.0 - 0.1 K/cumm [facility] Neutrophil pct 79.1 % [facility] Comment: Interpretive Data Percent cell count reference ranges are not reported, since discordance with absolute values may lead to misinterpretation of CBC data. Current Interpretive Data was last revised on 2017. Imm gran pct 0.6 % [facility] Comment: Interpretive Data Percent cell count reference ranges are not reported, since discordance with absolute values may lead to misinterpretation of CBC data. Current Interpretive Data was last revised on 2017. Lymphocyte pct 11.1 % [facility] Comment: Interpretive Data Percent cell count reference ranges are not reported, since discordance with absolute values may lead to misinterpretation of CBC data. Current Interpretive Data was last revised on 2017. Monocyte pct 7.6 % [facility] Comment: Interpretive Data Percent cell count reference ranges are not reported, since discordance with absolute values may lead to misinterpretation of CBC data. Current Interpretive Data was last revised on 2017. Eosinophil pct 0.6 % [facility] Comment: Interpretive Data Percent cell count reference ranges are not reported, since discordance with absolute values may lead to misinterpretation of CBC data. Current Interpretive Data was last revised on 2017. Basophil pct 1.0 % [facility] Comment: Interpretive Data Percent cell count reference ranges are not reported, since discordance with absolute values may lead to misinterpretation of CBC data. Current Interpretive Data was last revised on 2017. Blood 09/29/2024 3:33 PM CLINIC MD ASSOCIATE 09/29/2024 3:45 PM CLINIC MD ASSOCIATE Arnulfo Jordan MD LAB BLOOD ORDERABLES Final Result [facility] [address] Department [place] [address] * (ABNORMAL) CBC with auto differential (09/29/2024 3:33 PM CLINIC MD ASSOCIATE) WBC 8.3 3.8 - 9.9 K/cumm Hgb 7.8(L) 11.9 - 15.5 g/dL [facility] Hct 24.8(L) 35.6 - 45.5 % [facility] Plt 291 150 - 400 K/cumm [facility] MPV 10.9 9.1 - 12.3 fL [facility] RBC 2.59(L) 3.90 - 5.20 M/cumm [facility] MCV 95.8 81.3 - 96.4 fL [facility] MCH 30.1 27.1 - 33.3 pg [facility] MCHC 31.5(L) 32.3 - 35.7 g/dL [facility] RDW CV 16.6(H) 11.1 - 14.9 % [facility] RDW SD 56.7(H) 35.7 - 48.1 fL [facility] NRBC abs 0.02(H) 0.00 - 0.01 K/cumm [facility] Blood 09/29/2024 3:33 PM CLINIC MD ASSOCIATE 09/29/2024 3:45 PM CLINIC MD ASSOCIATE Arnulfo Jordan MD LAB BLOOD ORDERABLES Final Result [facility] [address] Department [place] [address] * (ABNORMAL) Comprehensive metabolic panel (09/29/2024 3:33 PM CLINIC MD ASSOCIATE) Sodium 141 135 - 145 mmol/L Potassium, pl 2.9(L) 3.3 - 4.9 mmol/L [facility] Chloride 110 97 - 110 mmol/L [facility] CO2 20(L) 22 - 32 mmol/L [facility] Anion gap 11 2 - 15 mmol/L [facility] BUN 19 6 - 25 mg/dL [facility] Creatinine 1.15(H) 0.60 - 1.10 mg/dL [facility] Glucose 207(H) 70 - 199 mg/dL [facility] Comment: Interpretive Data Fasting glucose >/= [...] 2022. Calcium 7.7(L) 8.5 - 10.3 mg/dL [facility] Bilirubin, total 0.2 0.1 - 1.2 mg/dL [facility] Protein, pl 6.4(L) 6.5 - 8.5 g/dL [facility] Albumin 1.9(L) 3.5 - 5.0 g/dL [facility] Alk phos 170(H) 40 - 130 Units/L [facility] ALT 12 7 - 45 Units/L [facility] AST 27 10 - 45 Units/L [facility] Comment:Slightly Hemolyzed S pecimen Blood 09/29/2024 3:33 PM CLINIC MD ASSOCIATE 09/29/2024 3:45 PM CLINIC MD ASSOCIATE Arnulfo Jordan MD LAB BLOOD ORDERABLES Final Result Performing Organization Address [facility] de Phone Number [facility] [address] [place] [address] * POCT glucose (09/29/2024 1:43 PM CLINIC MD ASSOCIATE) Glucose, POC 164 70 - 199 mg/dL Comment: For Glucose values <35 mg/dl when Hematocrit is >60 mg/dl,the test may not accurately detect significant hypoglycemia,and testing in the Laboratory should be considered if clinically indicated. Blood 09/29/2024 1:43 PM CLINIC MD ASSOCIATE 09/29/2024 1:43 PM CLINIC MD ASSOCIATE Result [facility] Arnulfo Jordan MD LAB POCT ORDERABLES - DEVIC E Final Result Performing Organization Address [facility] de Phone Number [facility] [address] Department [place] [address] * POCT glucose (09/29/2024 9:49 AM CLINIC MD ASSOCIATE) Glucose, POC 133 70 - 199 mg/dL Comment: For Glucose values <35 mg/dl when Hematocrit is >60 mg/dl,the test may not accurately detect significant hypoglycemia,and testing in the Laboratory should be considered if clinically indicated. Blood 09/29/2024 9:49 AM CLINIC MD ASSOCIATE 09/29/2024 9:49 AM CLINIC MD ASSOCIATE Arnulfo Jordan MD LAB POCT ORDERABLES - DEVIC E Final Result Performing Organization Address [facility]/ZIP Co de Phone Number [facility] [address] Department [place] [address] * POCT glucose (09/29/2024 7:27 AM CLINIC MD ASSOCIATE) Glucose, POC 114 70 - 199 mg/dL Comment: For Glucose values <35 mg/dl when Hematocrit is >60 mg/dl,the test may not accurately detect significant hypoglycemia,and testing in the Laboratory should be considered if clinically indicated. Blood 09/29/2024 7:27 AM CLINIC MD ASSOCIATE 09/29/2024 7:27 AM CLINIC MD ASSOCIATE Arnulfo Jordan MD LAB POCT ORDERABLES - DEVIC E Final Result Performing Organization Address [facility] de Phone Number [facility] [address] [facility] [place] [address] * POCT glucose (09/29/2024 5:31 AM CLINIC MD ASSOCIATE) Glucose, POC 115 70 - 199 mg/dL Comment: For Glucose values <35 mg/dl when Hematocrit is >60 mg/dl,the test may not accurately detect significant hypoglycemia,and testing in the Laboratory should be considered if clinically indicated. Blood 09/29/2024 5:31 AM CLINIC MD ASSOCIATE 09/29/2024 5:31 AM CLINIC MD ASSOCIATE Arnulfo Jordan MD LAB POCT ORDERABLES - DEVIC E Final Result Performing Organization Address [facility] Co de Phone Number [facility] [address] Department [place] [address] * POCT glucose (09/29/2024 1:25 AM CLINIC MD ASSOCIATE) Glucose, POC 108 70 - 199 mg/dL Comment: For Glucose values <35 mg/dl when Hematocrit is >60 mg/dl,the test may not accurately detect significant hypoglycemia,and testing in the Laboratory should be considered if clinically indicated. Blood 09/29/2024 1:25 AM CLINIC MD ASSOCIATE 09/29/2024 1:25 AM CLINIC MD ASSOCIATE Arnulfo Jordan MD LAB POCT ORDERABLES - DEVIC E Final Result Performing Organization Address [facility] de Phone Number [facility] [address] [facility] [place] [address] * POCT glucose (09/28/2024 9:14 PM CLINIC MD ASSOCIATE) Glucose, POC 106 70 - 199 mg/dL Comment: For Glucose values <35 mg/dl when Hematocrit is >60 mg/dl,the test may not accurately detect significant hypoglycemia,and testing in the Laboratory should be considered if clinically indicated. Blood 09/28/2024 9:14 PM CLINIC MD ASSOCIATE 09/28/2024 9:14 PM CLINIC MD ASSOCIATE Arnulfo Jordan MD LAB POCT ORDERABLES - DEVIC E Final Result Performing Organization Address [facility] de Phone Number [facility] [address] [facility] [place] [address] * POCT glucose (09/28/2024 5:12 PM CLINIC MD ASSOCIATE) Glucose, POC 161 70 - 199 mg/dL Comment: For Glucose values <35 mg/dl when Hematocrit is >60 mg/dl,the test may not accurately detect significant hypoglycemia,and testing in the Laboratory should be considered if clinically indicated. Blood 09/28/2024 5:12 PM CLINIC MD ASSOCIATE 09/28/2024 5:12 PM CLINIC MD ASSOCIATE Arnulfo Jordan MD LAB POCT ORDERABLES - DEVIC E Final Result Performing Organization Address [facility] de Phone Number [facility] [address] [facility] [place] [address] * POCT glucose (09/28/2024 1:43 PM CLINIC MD ASSOCIATE) Glucose, POC 173 70 - 199 mg/dL Comment: For Glucose values <35 mg/dl when Hematocrit is >60 mg/dl,the test may not accurately detect significant hypoglycemia,and testing in the Laboratory should be considered if clinically indicated. Blood 09/28/2024 1:43 PM CLINIC MD ASSOCIATE 09/28/2024 1:43 PM CLINIC MD ASSOCIATE Arnulfo Jordan MD LAB POCT ORDERABLES - DEVIC E Final Result Performing Organization Address [facility] de Phone Number [facility] [address] Department of [employer] [place], [place] [id number] * POCT glucose (09/28/2024 9:16 AM CLINIC MD ASSOCIATE) [facility] Glucose, POC 124 70 - 199 mg/dL Comment: For Glucose values <35 mg/dl when Hematocrit is >60 mg/dl,the test may not accurately detect significant hypoglycemia,and testing in the Laboratory should be considered if clinically indicated. Blood 09/28/2024 9:16 AM CLINIC MD ASSOCIATE 09/28/2024 9:16 AM CLINIC MD ASSOCIATE Arnulfo Jordan MD LAB POCT ORDERABLES - DEVIC E Final Result Performing Organization Address [facility] de Phone Number [facility] [address] [place] [address] * (ABNORMAL) eGFR (09/28/2024 7:09 AM CLINIC MD ASSOCIATE) [facility] eGFR 58(L) >=60 mL/min/1. 73 m2 [...] last reviewed 2021. Blood 09/28/2024 7:09 AM CLINIC MD ASSOCIATE 09/28/2024 7:45 AM CLINIC MD ASSOCIATE us Arnulfo Jordan MD LAB BLOOD ORDERABLES Final Result [facility] [address] Department [place] [address] * (ABNORMAL) Differential, auto (09/28/2024 7:09 AM CLINIC MD ASSOCIATE) Neutrophil abs 5.7 1.5 - 6.5 K/cumm Imm gran abs 0.0 0.0 - 0.1 K/cumm [facility] Lymphocyte abs 0.7(L) 0.8 - 3.3 K/cumm [facility] Monocyte abs 0.5 0.2 - 0.8 K/cumm [facility] Eosinophil abs 0.1 0.0 - 0.5 K/cumm [facility] Basophil abs 0.1 0.0 - 0.1 K/cumm [facility] Neutrophil pct 80.9 % [facility] Comment: Interpretive Data Percent cell count reference ranges are not reported, since discordance with absolute values may lead to misinterpretation of CBC data. Current Interpretive Data was last revised on 2017. Imm gran pct 0.4 % [facility] Comment: Interpretive Data Percent cell count reference ranges are not reported, since discordance with absolute values may lead to misinterpretation of CBC data. Current Interpretive Data was last revised on 2017. Lymphocyte pct 9.3 % [facility] Comment: Interpretive Data Percent cell count reference ranges are not reported, since discordance with absolute values may lead to misinterpretation of CBC data. Current Interpretive Data was last revised on 2017. Monocyte pct 6.9 % [facility] Comment: Interpretive Data Percent cell count reference ranges are not reported, since discordance with absolute values may lead to misinterpretation of CBC data. Current Interpretive Data was last revised on 2017. Eosinophil pct 1.5 % [facility] Comment: Interpretive Data Percent cell count reference ranges are not reported, since discordance with absolute values may lead to misinterpretation of CBC data. Current Interpretive Data was last revised on 2017. Basophil pct 1.0 % [facility] Comment: Interpretive Data Percent cell count reference ranges are not reported, since discordance with absolute values may lead to misinterpretation of CBC data. Current Interpretive Data was last revised on 2017. Blood 09/28/2024 7:09 AM CLINIC MD ASSOCIATE 09/28/2024 7:45 AM CLINIC MD ASSOCIATE us Arnulfo Jordan MD LAB BLOOD ORDERABLES Final Result [facility] [address] Department [place] [address] * (ABNORMAL) CBC with auto differential (09/28/2024 7:09 AM CLINIC MD ASSOCIATE) WBC 7.1 3.8 - 9.9 K/cumm Hgb 7.3(L) 11.9 - 15.5 g/dL [facility] Hct 24.5(L) 35.6 - 45.5 % [facility] Plt 285 150 - 400 K/cumm [facility] MPV 11.3 9.1 - 12.3 fL [facility] RBC 2.54(L) 3.90 - 5.20 M/cumm [facility] MCV 96.5(H) 81.3 - 96.4 fL [facility] MCH 28.7 27.1 - 33.3 pg [facility] MCHC 29.8(L) 32.3 - 35.7 g/dL [facility] RDW CV 16.5(H) 11.1 - 14.9 % [facility] RDW SD 57.2(H) 35.7 - 48.1 fL [facility] NRBC abs 0.00 0.00 - 0.01 K/cumm [facility] Blood 09/28/2024 7:09 AM CLINIC MD ASSOCIATE 09/28/2024 7:45 AM CLINIC MD ASSOCIATE Arnulfo Jordan MD LAB BLOOD ORDERABLES Final Result [facility] [address] Department [place] [address] * (ABNORMAL) Comprehensive metabolic panel (09/28/2024 7:09 AM CLINIC MD ASSOCIATE) Sodium 142 135 - 145 mmol/L Potassium, pl 3.3 3.3 - 4.9 mmol/L [facility] Chloride 109 97 - 110 mmol/L [facility] CO2 21(L) 22 - 32 mmol/L [facility] Anion gap 12 2 - 15 mmol/L [facility] BUN 24 6 - 25 mg/dL [facility] Creatinine 1.15(H) 0.60 - 1.10 mg/dL [facility] Glucose 111 70 - 199 mg/dL [facility] Comment: Interpretive Data Fasting glucose >/= [...] 2022. Calcium 8.1(L) 8.5 - 10.3 mg/dL [facility] Bilirubin, total 0.2 0.1 - 1.2 mg/dL [facility] Protein, pl 6.3(L) 6.5 - 8.5 g/dL [facility] Albumin 1.9(L) 3.5 - 5.0 g/dL [facility] Alk phos 163(H) 40 - 130 Units/L [facility] ALT 10 7 - 45 Units/L [facility] AST 28 10 - 45 Units/L [facility] Blood 09/28/2024 7:09 AM CLINIC MD ASSOCIATE 09/28/2024 7:45 AM CLINIC MD ASSOCIATE Arnulfo Jordan MD LAB BLOOD ORDERABLES Final Result Performing Organization Address [facility] Co de Phone Number [facility] [address] [facility] [place] [address] * POCT glucose (09/28/2024 5:42 AM CLINIC MD ASSOCIATE) Glucose, POC 123 70 - 199 mg/dL Comment: For Glucose values <35 mg/dl when Hematocrit is >60 mg/dl,the test may not accurately detect significant hypoglycemia,and testing in the Laboratory should be considered if clinically indicated. Blood 09/28/2024 5:42 AM CLINIC MD ASSOCIATE 09/28/2024 5:42 AM CLINIC MD ASSOCIATE Result [facility] Arnulfo Jordan MD LAB POCT ORDERABLES - DEVIC E Final Result Performing Organization Address [facility] de Phone Number [place] [id number] [facility] [place] [address] * POCT glucose (09/28/2024 1:31 AM CLINIC MD ASSOCIATE) Glucose, POC 125 70 - 199 mg/dL Comment: For Glucose values <35 mg/dl when Hematocrit is >60 mg/dl,the test may not accurately detect significant hypoglycemia,and testing in the Laboratory should be considered if clinically indicated. Blood 09/28/2024 1:31 AM CLINIC MD ASSOCIATE 09/28/2024 1:31 AM CLINIC MD ASSOCIATE Result [facility] Arnulfo Jordan MD LAB POCT ORDERABLES - DEVIC E Final Result Performing Organization Address [facility] Co de Phone Number [facility] [address] [facility] [place] [address] * POCT glucose (09/27/2024 9:14 PM CLINIC MD ASSOCIATE) Glucose, POC 136 70 - 199 mg/dL Comment: For Glucose values <35 mg/dl when Hematocrit is >60 mg/dl,the test may not accurately detect significant hypoglycemia,and testing in the Laboratory should be considered if clinically indicated. Blood 09/27/2024 9:14 PM CLINIC MD ASSOCIATE 09/27/2024 9:14 PM CLINIC MD ASSOCIATE Arnulfo Jordan MD LAB POCT ORDERABLES - DEVIC E Final Result Performing Organization Address [facility] de Phone Number [facility] [address] [facility] [place] [address] * POCT glucose (09/27/2024 5:25 PM CLINIC MD ASSOCIATE) Glucose, POC 112 70 - 199 mg/dL Comment: For Glucose values <35 mg/dl when Hematocrit is >60 mg/dl,the test may not accurately detect significant hypoglycemia,and testing in the Laboratory should be considered if clinically indicated. Blood 09/27/2024 5:25 PM CLINIC MD ASSOCIATE 09/27/2024 5:25 PM CLINIC MD ASSOCIATE Result [facility] Arnulfo Jordan MD LAB POCT ORDERABLES - DEVIC E Final Result Performing Organization Address [facility] de Phone Number [facility] [address] [facility] [place] [address] * POCT glucose (09/27/2024 3:13 PM CLINIC MD ASSOCIATE) Glucose, POC 101 70 - 199 mg/dL Comment: For Glucose values <35 mg/dl when Hematocrit is >60 mg/dl,the test may not accurately detect significant hypoglycemia,and testing in the Laboratory should be considered if clinically indicated. Blood 09/27/2024 3:13 PM CLINIC MD ASSOCIATE 09/27/2024 3:13 PM CLINIC MD ASSOCIATE Result [facility] Arnulfo Jordan MD LAB POCT ORDERABLES - DEVIC E Final Result [facility] [address] Department [place] [address] * [place] Modified Barium Swallow W Video (09/27/2024 2:20 PM CLINIC MD ASSOCIATE) Anatomical Region Laterality Modality Head and Neck N/A Radio Fluoroscop y 09/27/2024 2:33 PM CLINIC MD ASSOCIATE Impressions 09/27/2024 3:03 PM CLINIC MD ASSOCIATE 1. There is flash laryngeal penetration with [...] Zion Rodriguez M.D. Narrative 09/27/2024 3:03 PM CLINIC MD ASSOCIATE EXAMINATION: MODIFIED BARIUM SWALLOW 09/27/2024 HISTORY: Dysphagia. [...] Result * POCT glucose (09/27/2024 10:05 AM CLINIC MD ASSOCIATE) [facility] Glucose, POC 89 70 - 199 mg/dL Comment: For Glucose values <35 mg/dl when Hematocrit is >60 mg/dl,the test may not accurately detect significant hypoglycemia,and testing in the Laboratory should be considered if clinically indicated. Blood 09/27/2024 10:0 5 AM CLINIC MD ASSOCIATE 09/27/2024 10:05 AM CLINIC MD ASSOCIATE Result [facility] Arnulfo Jordan MD LAB POCT ORDERABLES - DEVIC E Final Result [facility] [address] Department [place] [address] * Iron profile - Add on lab test (09/27/2024 8:43 AM CLINIC MD ASSOCIATE) [facility] Acceptable Yes Blood 09/27/2024 8:43 AM CLINIC MD ASSOCIATE 09/27/2024 8:43 AM CLINIC MD ASSOCIATE Narrative [facility] - 09/27/2024 8:44 AM CLINIC MD ASSOCIATE Name of Test->Iron profile Result [facility] Arnulfo Jordan MD LAB BLOOD ORDERABLES Final Result [facility] [address] [facility] [place] [address] * POCT glucose (09/27/2024 5:57 AM CLINIC MD ASSOCIATE) Glucose, POC 74 70 - 199 mg/dL Comment: For Glucose values <35 mg/dl when Hematocrit is >60 mg/dl,the test may not accurately detect significant hypoglycemia,and testing in the Laboratory should be considered if clinically indicated. Blood 09/27/2024 5:57 AM CLINIC MD ASSOCIATE 09/27/2024 5:57 AM CLINIC MD ASSOCIATE Arnulfo Jordan MD LAB POCT ORDERABLES - DEVIC E Final Result Performing Organization Address City/[facility]/ZIP Co de Phone Number [facility] [address] [place] [address] * (ABNORMAL) eGFR (09/27/2024 5:42 AM CLINIC MD ASSOCIATE) eGFR 58(L) >=60 mL/min/1. 73 m2 Comment: [...] last reviewed 2021. Blood 09/27/2024 5:42 AM CLINIC MD ASSOCIATE 09/27/2024 5:55 AM CLINIC MD ASSOCIATE us Arnulfo Jordan MD LAB BLOOD ORDERABLES Final Result [facility] [address] [place] Department [place] [address] * (ABNORMAL) Differential, auto (09/27/2024 5:42 AM CLINIC MD ASSOCIATE) Neutrophil abs 7.1(H) 1.5 - 6.5 K/cumm Imm gran abs 0.0 0.0 - 0.1 K/cumm [facility] Lymphocyte abs 0.7(L) 0.8 - 3.3 K/cumm [facility] Monocyte abs 0.6 0.2 - 0.8 K/cumm [facility] Eosinophil abs 0.2 0.0 - 0.5 K/cumm [facility] Basophil abs 0.1 0.0 - 0.1 K/cumm [facility] Neutrophil pct 80.9 % [facility] Comment: Interpretive Data Percent cell count reference ranges are not reported, since discordance with absolute values may lead to misinterpretation of CBC data. Current Interpretive Data was last revised on 2017. Imm gran pct 0.5 % [facility] Comment: Interpretive Data Percent cell count reference ranges are not reported, since discordance with absolute values may lead to misinterpretation of CBC data. Current Interpretive Data was last revised on 2017. Lymphocyte pct 8.4 % [facility] Comment: Interpretive Data Percent cell count reference ranges are not reported, since discordance with absolute values may lead to misinterpretation of CBC data. Current Interpretive Data was last revised on 2017. Monocyte pct 6.6 % [facility] Comment: Interpretive Data Percent cell count reference ranges are not reported, since discordance with absolute values may lead to misinterpretation of CBC data. Current Interpretive Data was last revised on 2017. Eosinophil pct 2.6 % [facility] Comment: Interpretive Data Percent cell count reference ranges are not reported, since discordance with absolute values may lead to misinterpretation of CBC data. Current Interpretive Data was last revised on 2017. Basophil pct 1.0 % [facility] Comment: Interpretive Data Percent cell count reference ranges are not reported, since discordance with absolute values may lead to misinterpretation of CBC data. Current Interpretive Data was last revised on 2017. Blood 09/27/2024 5:42 AM CLINIC MD ASSOCIATE 09/27/2024 5:55 AM CLINIC MD ASSOCIATE Arnulfo Jordan MD LAB BLOOD ORDERABLES Final Result Performing Organization Address City/[facility]/ZIP Co de Phone Number [facility] [address] Department [employer] [place], [place] [id number] * (ABNORMAL) Iron profile w/ IBC (09/27/2024 5:42 AM CLINIC MD ASSOCIATE) Pathologist [facility] Iron 25(L) 35 - 145 mcg/dL TIBC 156(L) 250 - 400 mcg/dL [facility] Transferrin saturation 16(L) 20 - 50 % [facility] Blood 09/27/2024 5:42 AM CLINIC MD ASSOCIATE 09/27/2024 5:55 AM CLINIC MD ASSOCIATE Arnulfo Jordan MD LAB BLOOD ORDERABLES Final Result Performing Organization Address [facility] Co de Phone Number [facility] [address] [employer] [place] [address] * (ABNORMAL) CBC with auto differential (09/27/2024 5:42 AM CLINIC MD ASSOCIATE) Pathologist [facility] WBC 8.8 3.8 - 9.9 K/cumm Hgb 7.2(L) 11.9 - 15.5 g/dL [facility] Hct 24.6(L) 35.6 - 45.5 % [facility] Plt 280 150 - 400 K/cumm [facility] MPV 11.4 9.1 - 12.3 fL [facility] RBC 2.60(L) 3.90 - 5.20 M/cumm [facility] MCV 94.6 81.3 - 96.4 fL [facility] MCH 27.7 27.1 - 33.3 pg [facility] MCHC 29.3(L) 32.3 - 35.7 g/dL [facility] RDW CV 16.1(H) 11.1 - 14.9 % [facility] RDW SD 54.5(H) 35.7 - 48.1 fL [facility] NRBC abs 0.00 0.00 - 0.01 K/cumm [facility] Blood 09/27/2024 5:42 AM CLINIC MD ASSOCIATE 09/27/2024 5:55 AM CLINIC MD ASSOCIATE Arnulfo Jordan MD LAB BLOOD ORDERABLES Final Result [facility] [address] Department [place] [address] * (ABNORMAL) Comprehensive metabolic panel (09/27/2024 5:42 AM CLINIC MD ASSOCIATE) Sodium 143 135 - 145 mmol/L Potassium, pl 3.4 3.3 - 4.9 mmol/L [facility] Chloride 110 97 - 110 mmol/L [facility] CO2 22 22 - 32 mmol/L [facility] Anion gap 11 2 - 15 mmol/L [facility] BUN 25 6 - 25 mg/dL [facility] Creatinine 1.16(H) 0.60 - 1.10 mg/dL [facility] Glucose 77 70 - 199 mg/dL [facility] Comment: Interpretive Data Fasting glucose >/= [...] 2022. Calcium 8.0(L) 8.5 - 10.3 mg/dL [facility] Bilirubin, total 0.3 0.1 - 1.2 mg/dL [facility] Protein, pl 6.0(L) 6.5 - 8.5 g/dL [facility] Albumin 2.1(L) 3.5 - 5.0 g/dL [facility] Alk phos 152(H) 40 - 130 Units/L [facility] ALT 12 7 - 45 Units/L [facility] AST 31 10 - 45 Units/L [facility] Blood 09/27/2024 5:42 AM CLINIC MD ASSOCIATE 09/27/2024 5:55 AM CLINIC MD ASSOCIATE Arnulfo Jordan MD LAB BLOOD ORDERABLES Final Result Performing Organization Address City/[facility]/ZIP Co de Phone Number [facility] [address] [place] [address] * POCT glucose (09/27/2024 2:14 AM CLINIC MD ASSOCIATE) Glucose, POC 78 70 - 199 mg/dL Comment: For Glucose values <35 mg/dl when Hematocrit is >60 mg/dl,the test may not accurately detect significant hypoglycemia,and testing in the Laboratory should be considered if clinically indicated. Blood 09/27/2024 2:14 AM CLINIC MD ASSOCIATE 09/27/2024 2:14 AM CLINIC MD ASSOCIATE Arnulfo Jordan MD LAB POCT ORDERABLES - DEVIC E Final Result Performing Organization Address City/[facility]/ZIP Co de Phone Number [facility] [address] [place] [address] * POCT glucose (09/26/2024 9:41 PM CLINIC MD ASSOCIATE) Glucose, POC 79 70 - 199 mg/dL Comment: For Glucose values <35 mg/dl when Hematocrit is >60 mg/dl,the test may not accurately detect significant hypoglycemia,and testing in the Laboratory should be considered if clinically indicated. Blood 09/26/2024 9:41 PM CLINIC MD ASSOCIATE 09/26/2024 9:41 PM CLINIC MD ASSOCIATE Arnulfo Jordan MD LAB POCT ORDERABLES - DEVIC E Final Result Performing Organization Address [facility] Co de Phone Number [facility] [address] [facility] [place], [place] [id number] * POCT glucose (09/26/2024 6:18 PM CLINIC MD ASSOCIATE) Glucose, POC 91 70 - 199 mg/dL Comment: For Glucose values <35 mg/dl when Hematocrit is >60 mg/dl,the test may not accurately detect significant hypoglycemia,and testing in the Laboratory should be considered if clinically indicated. Blood 09/26/2024 6:18 PM CLINIC MD ASSOCIATE 09/26/2024 6:18 PM CLINIC MD ASSOCIATE Arnulfo Jordan MD LAB POCT ORDERABLES - DEVIC E Final Result Performing Organization Address [facility] de Phone Number [facility] [address] [facility] [place], [place] [id number] * POCT glucose (09/26/2024 2:51 PM CLINIC MD ASSOCIATE) Glucose, POC 89 70 - 199 mg/dL Comment: For Glucose values <35 mg/dl when Hematocrit is >60 mg/dl,the test may not accurately detect significant hypoglycemia,and testing in the Laboratory should be considered if clinically indicated. Blood 09/26/2024 2:51 PM CLINIC MD ASSOCIATE 09/26/2024 2:51 PM CLINIC MD ASSOCIATE Arnulfo Jordan MD LAB POCT ORDERABLES - DEVIC E Final Result Performing Organization Address [facility] Co de Phone Number [facility] [address] [facility] [place], [place] [id number] * (ABNORMAL) CBC with auto differential (09/26/2024 2:03 PM CLINIC MD ASSOCIATE) WBC 8.6 3.8 - 9.9 K/cumm Hgb 7.3(L) 11.9 - 15.5 g/dL [facility] Hct 24.2(L) 35.6 - 45.5 % [facility] Plt 308 150 - 400 K/cumm [facility] MPV 11.5 9.1 - 12.3 fL [facility] RBC 2.52(L) 3.90 - 5.20 M/cumm [facility] MCV 96.0 81.3 - 96.4 fL [facility] MCH 29.0 27.1 - 33.3 pg [facility] MCHC 30.2(L) 32.3 - 35.7 g/dL [facility] RDW CV 16.0(H) 11.1 - 14.9 % [facility] RDW SD 55.1(H) 35.7 - 48.1 fL [facility] NRBC abs 0.00 0.00 - 0.01 K/cumm [facility] Blood 09/26/2024 2:03 PM CLINIC MD ASSOCIATE 09/26/2024 2:11 PM CLINIC MD ASSOCIATE Arnulfo Jordan MD LAB BLOOD ORDERABLES Final Result [facility] [address] Department [place] [address] * (ABNORMAL) eGFR (09/26/2024 1:25 PM CLINIC MD ASSOCIATE) eGFR 57(L) >=60 mL/min/1. 73 m2 Comment: [...] last reviewed 2021. Blood 09/26/2024 1:25 PM CLINIC MD ASSOCIATE 09/26/2024 1:33 PM CLINIC MD ASSOCIATE us Arnulfo Jordan MD LAB BLOOD ORDERABLES Final Result [facility] [address] Department [place] [address] * Differential, auto (09/26/2024 1:25 PM CLINIC MD ASSOCIATE) Neutrophil abs See Comment 1.5 - 6.5 Comment:CBC to be recollecte d due to possible falsely low Hgb on09/26/2024 13:53:40 CLINIC MD ASSOCIATE [id number] Imm gran abs See Comment 0.0 - 0.1 [facility] Comment:CBC to be recollecte d due to possible falsely low Hgb on09/26/2024 13:53:40 CLINIC MD ASSOCIATE [id number] Lymphocyte abs See Comment 0.8 - 3.3 [facility] Comment:CBC to be recollecte d due to possible falsely low Hgb on09/26/2024 13:53:40 CLINIC MD ASSOCIATE [id number] Monocyte abs See Comment 0.2 - 0.8 [facility] Comment:CBC to be recollecte d due to possible falsely low Hgb on09/26/2024 13:53:40 CLINIC MD ASSOCIATE [id number] Eosinophil abs See Comment 0.0 - 0.5 [facility] Comment:CBC to be recollecte d due to possible falsely low Hgb on09/26/2024 13:53:40 CLINIC MD ASSOCIATE [id number] Basophil abs See Comment 0.0 - 0.1 [facility] Comment:CBC to be recollecte d due to possible falsely low Hgb on09/26/2024 13:53:40 CLINIC MD ASSOCIATE [id number] Neutrophil pct See Comment [facility] Comment: CBC to be recollected due to possible falsely low Hgb on09/26/2024 13:53:40 CLINIC MD ASSOCIATE [id number] Interpretive Data Percent cell count reference ranges are not reported, since discordance with absolute values may lead to misinterpretation of CBC data. Current Interpretive Data was last revised on 2017. Imm gran pct See Comment [facility] Comment: CBC to be recollected due to possible falsely low Hgb on09/26/2024 13:53:40 CLINIC MD ASSOCIATE [id number] Interpretive Data Percent cell count reference ranges are not reported, since discordance with absolute values may lead to misinterpretation of CBC data. Current Interpretive Data was last revised on 2017. Lymphocyte pct See Comment [facility] Comment: CBC to be recollected due to possible falsely low Hgb on09/26/2024 13:53:40 CLINIC MD ASSOCIATE [id number] Interpretive Data Percent cell count reference ranges are not reported, since discordance with absolute values may lead to misinterpretation of CBC data. Current Interpretive Data was last revised on 2017. Monocyte pct See Comment [facility] Comment: CBC to be recollected due to possible falsely low Hgb on09/26/2024 13:53:40 CLINIC MD ASSOCIATE [id number] Interpretive Data Percent cell count reference ranges are not reported, since discordance with absolute values may lead to misinterpretation of CBC data. Current Interpretive Data was last revised on 2017. Eosinophil pct See Comment [facility] Comment: CBC to be recollected due to possible falsely low Hgb on09/26/2024 13:53:40 CLINIC MD ASSOCIATE [id number] Interpretive Data Percent cell count reference ranges are not reported, since discordance with absolute values may lead to misinterpretation of CBC data. Current Interpretive Data was last revised on 2017. Basophil pct See Comment [facility] Comment: CBC to be recollected due to possible falsely low Hgb on09/26/2024 13:53:40 CLINIC MD ASSOCIATE [id number] Interpretive Data Percent cell count reference ranges are not reported, since discordance with absolute values may lead to misinterpretation of CBC data. Current Interpretive Data was last revised on 2017. Blood 09/26/2024 1:25 PM CLINIC MD ASSOCIATE 09/26/2024 1:33 PM CLINIC MD ASSOCIATE us Arnulfo Jordan MD LAB BLOOD ORDERABLES Edited Result - Final [facility] [address] Department [place] [address] * CBC with auto differential (09/26/2024 1:25 PM CLINIC MD ASSOCIATE) WBC See Comment 3.8 - 9.9 Comment: Test results inaccurately filed to this patient's record. Test will be credited. CBC to be recollected due to possible falsely low Hgb on09/26/2024 13:53:40 CLINIC MD ASSOCIATE [id number] Hgb See Comment 11.9 - 15.5 [facility] Comment: Test results inaccurately filed to this patient's record. Test will be credited. CBC to be recollected due to possible falsely low Hgb on09/26/2024 13:53:40 CLINIC MD ASSOCIATE [id number] Hct See Comment 35.6 - 45.5 [facility] Comment: Test results inaccurately filed to this patient's record. Test will be credited. CBC to be recollected due to possible falsely low Hgb on09/26/2024 13:53:40 CLINIC MD ASSOCIATE [id number] Plt See Comment 150 - 400 K/cumm [facility] Comment: Test results inaccurately filed to this patient's record. Test will be credited. CBC to be recollected due to possible falsely low Hgb on09/26/2024 13:53:40 CLINIC MD ASSOCIATE [id number] MPV See Comment 9.1 - 12.3 [facility] Comment: Test results inaccurately filed to this patient's record. Test will be credited. CBC to be recollected due to possible falsely low Hgb on09/26/2024 13:53:40 CLINIC MD ASSOCIATE [id number] RBC See Comment 3.90 - 5.20 [facility] Comment: Test results inaccurately filed to this patient's record. Test will be credited. CBC to be recollected due to possible falsely low Hgb on09/26/2024 13:53:40 CLINIC MD ASSOCIATE [id number] MCV See Comment 81.3 - 96.4 [facility] Comment: Test results inaccurately filed to this patient's record. Test will be credited. CBC to be recollected due to possible falsely low Hgb on09/26/2024 13:53:40 CLINIC MD ASSOCIATE [id number] MCH See Comment 27.1 - 33.3 [facility] Comment: Test results inaccurately filed to this patient's record. Test will be credited. CBC to be recollected due to possible falsely low Hgb on09/26/2024 13:53:40 CLINIC MD ASSOCIATE [id number] MCHC See Comment 32.3 - 35.7 [facility] Comment: Test results inaccurately filed to this patient's record. Test will be credited. CBC to be recollected due to possible falsely low Hgb on09/26/2024 13:53:40 CLINIC MD ASSOCIATE [id number] RDW CV See Comment 11.1 - 14.9 [facility] Comment: Test results inaccurately filed to this patient's record. Test will be credited. CBC to be recollected due to possible falsely low Hgb on09/26/2024 13:53:40 CLINIC MD ASSOCIATE [id number] RDW SD See Comment 35.7 - 48.1 [facility] Comment: Test results inaccurately filed to this patient's record. Test will be credited. CBC to be recollected due to possible falsely low Hgb on09/26/2024 13:53:40 CLINIC MD ASSOCIATE [id number] NRBC abs See Comment 0.00 - 0.01 K/cumm [facility] Comment:CBC to be recollecte d due to possible falsely low Hgb on09/26/2024 13:53:40 CLINIC MD ASSOCIATE [id number] Blood 09/26/2024 1:25 PM CLINIC MD ASSOCIATE 09/26/2024 1:33 PM CLINIC MD ASSOCIATE us Arnulfo Jordan MD LAB BLOOD ORDERABLES Edited Result - Final [facility] [address] [place] [address] * (ABNORMAL) Comprehensive metabolic panel (09/26/2024 1:25 PM CLINIC MD ASSOCIATE) Sodium 142 135 - 145 mmol/L Potassium, pl 3.2(L) 3.3 - 4.9 mmol/L [facility] Chloride 112(H) 97 - 110 mmol/L [facility] CO2 21(L) 22 - 32 mmol/L [facility] Anion gap 9 2 - 15 mmol/L [facility] BUN 23 6 - 25 mg/dL [facility] Creatinine 1.18(H) 0.60 - 1.10 mg/dL [facility] Glucose 79 70 - 199 mg/dL [facility] Comment: Interpretive Data Fasting glucose >/= [...] 2022. Calcium 7.4(L) 8.5 - 10.3 mg/dL [facility] Bilirubin, total 0.2 0.1 - 1.2 mg/dL [facility] Protein, pl 5.6(L) 6.5 - 8.5 g/dL [facility] Albumin 1.8(L) 3.5 - 5.0 g/dL [facility] Alk phos 135(H) 40 - 130 Units/L [facility] ALT 13 7 - 45 Units/L [facility] AST 32 10 - 45 Units/L [facility] Blood 09/26/2024 1:25 PM CLINIC MD ASSOCIATE 09/26/2024 1:33 PM CLINIC MD ASSOCIATE us Arnulfo Jordan MD LAB BLOOD ORDERABLES Final Result [facility] [address] Department [place] [address] * POCT glucose (09/26/2024 10:10 AM CLINIC MD ASSOCIATE) Glucose, POC 100 70 - 199 mg/dL Comment: For Glucose values <35 mg/dl when Hematocrit is >60 mg/dl,the test may not accurately detect significant hypoglycemia,and testing in the Laboratory should be considered if clinically indicated. Blood 09/26/2024 10:1 0 AM CLINIC MD ASSOCIATE 09/26/2024 10:10 AM CLINIC MD ASSOCIATE Arnulfo Jordan MD LAB POCT ORDERABLES - DEVIC E Final Result Performing Organization Address [facility] Co de Phone Number [facility] [address] [facility] [place] [address] * POCT glucose (09/26/2024 5:04 AM CLINIC MD ASSOCIATE) Glucose, POC 94 70 - 199 mg/dL Comment: For Glucose values <35 mg/dl when Hematocrit is >60 mg/dl,the test may not accurately detect significant hypoglycemia,and testing in the Laboratory should be considered if clinically indicated. Blood 09/26/2024 5:04 AM CLINIC MD ASSOCIATE 09/26/2024 5:04 AM CLINIC MD ASSOCIATE Arnulfo Jordan MD LAB POCT ORDERABLES - DEVIC E Final Result Performing Organization Address City/[facility] Co de Phone Number [facility] [address] [place] [address] * C. difficile testing Stool (09/26/2024 2:18 AM CLINIC MD ASSOCIATE) GDH Result Negative Negative Toxin Result Negative Negative [facility] C. diff result Negative, free toxin Negative, free toxin [facility] C. diff interp Negative for toxigenic Clostridioides (Clostridium) difficile. Analysis was performed using a glutamate dehydrogenase antigen detection assay combined with a C. difficile toxin detection assay. [facility] Stool 09/26/2024 2:18 AM CLINIC MD ASSOCIATE 09/26/2024 2:41 AM CLINIC MD ASSOCIATE Arnulfo Jordan MD LAB MICROBIOLOGY - GENERAL ORDERABLES Final Result Performing Organization Address [facility] Co de Phone Number [facility] [address] [facility] [place] [address] * POCT glucose (09/26/2024 12:01 AM CLINIC MD ASSOCIATE) Glucose, POC 108 70 - 199 mg/dL Comment: For Glucose values <35 mg/dl when Hematocrit is >60 mg/dl,the test may not accurately detect significant hypoglycemia,and testing in the Laboratory should be considered if clinically indicated. Blood 09/26/2024 12:0 1 AM CLINIC MD ASSOCIATE 09/26/2024 12:01 AM CLINIC MD ASSOCIATE Arnulfo Jordan MD LAB POCT ORDERABLES - DEVIC E Final Result Performing Organization Address [facility] de Phone Number [facility] [address] [facility] [place] [address] * POCT glucose (09/25/2024 8:35 PM CLINIC MD ASSOCIATE) Glucose, POC 92 70 - 199 mg/dL Comment: For Glucose values <35 mg/dl when Hematocrit is >60 mg/dl,the test may not accurately detect significant hypoglycemia,and testing in the Laboratory should be considered if clinically indicated. Blood 09/25/2024 8:35 PM CLINIC MD ASSOCIATE 09/25/2024 8:35 PM CLINIC MD ASSOCIATE Arnulfo Jordan MD LAB POCT ORDERABLES - DEVIC E Final Result Performing Organization Address [facility] Co de Phone Number [facility] [address] [facility] [place] [address] * POCT glucose (09/25/2024 4:36 PM CLINIC MD ASSOCIATE) Glucose, POC 97 70 - 199 mg/dL Comment: For Glucose values <35 mg/dl when Hematocrit is >60 mg/dl,the test may not accurately detect significant hypoglycemia,and testing in the Laboratory should be considered if clinically indicated. Blood 09/25/2024 4:36 PM CLINIC MD ASSOCIATE 09/25/2024 4:36 PM CLINIC MD ASSOCIATE Arnulfo Jordan MD LAB POCT ORDERABLES - DEVIC E Final Result Performing Organization Address [facility] Co de Phone Number [facility] [address] [facility] [place] [address] * POCT glucose (09/25/2024 11:55 AM CLINIC MD ASSOCIATE) Glucose, POC 87 70 - 199 mg/dL Comment: For Glucose values <35 mg/dl when Hematocrit is >60 mg/dl,the test may not accurately detect significant hypoglycemia,and testing in the Laboratory should be considered if clinically indicated. Blood 09/25/2024 11:5 5 AM CLINIC MD ASSOCIATE 09/25/2024 11:55 AM CLINIC MD ASSOCIATE Arnulfo Jordan MD LAB POCT ORDERABLES - DEVIC E Final Result Performing Organization Address [facility] de Phone Number [facility] [address] [facility] [place], [place] [id number] * (ABNORMAL) eGFR (09/25/2024 8:32 AM CLINIC MD ASSOCIATE) eGFR 53(L) >=60 mL/min/1. 73 m2 Comment: [...] Inclusion of Race in Diagnosing Kidney Disease, MENDYSGilberto 2020). The CKD-EPI equation should not be used for patients with unstable renal function and has not been validated in children and those over 70. Current interpretive data was last reviewed 2021. Blood 09/25/2024 8:32 AM CLINIC MD ASSOCIATE 09/25/2024 8:46 AM CLINIC MD ASSOCIATE Arnulfo Jordan MD LAB BLOOD ORDERABLES Final Result [facility] [address] Department [place] [address] * (ABNORMAL) Differential, auto (09/25/2024 8:32 AM CLINIC MD ASSOCIATE) Neutrophil abs 7.2(H) 1.5 - 6.5 K/cumm Imm gran abs 0.1 0.0 - 0.1 K/cumm [facility] Lymphocyte abs 1.1 0.8 - 3.3 K/cumm [facility] Monocyte abs 0.7 0.2 - 0.8 K/cumm [facility] Eosinophil abs 0.2 0.0 - 0.5 K/cumm [facility] Basophil abs 0.1 0.0 - 0.1 K/cumm [facility] Neutrophil pct 78.5 % [facility] Comment: Interpretive Data Percent cell count reference ranges are not reported, since discordance with absolute values may lead to misinterpretation of CBC data. Current Interpretive Data was last revised on 2017. Imm gran pct 0.5 % [facility] Comment: Interpretive Data Percent cell count reference ranges are not reported, since discordance with absolute values may lead to misinterpretation of CBC data. Current Interpretive Data was last revised on 2017. Lymphocyte pct 11.6 % [facility] Comment: Interpretive Data Percent cell count reference ranges are not reported, since discordance with absolute values may lead to misinterpretation of CBC data. Current Interpretive Data was last revised on 2017. Monocyte pct 7.3 % [facility] Comment: Interpretive Data Percent cell count reference ranges are not reported, since discordance with absolute values may lead to misinterpretation of CBC data. Current Interpretive Data was last revised on 2017. Eosinophil pct 1.6 % [facility] Comment: Interpretive Data Percent cell count reference ranges are not reported, since discordance with absolute values may lead to misinterpretation of CBC data. Current Interpretive Data was last revised on 2017. Basophil pct 0.5 % [facility] Comment: Interpretive Data Percent cell count reference ranges are not reported, since discordance with absolute values may lead to misinterpretation of CBC data. Current Interpretive Data was last revised on 2017. Blood 09/25/2024 8:32 AM CLINIC MD ASSOCIATE 09/25/2024 8:46 AM CLINIC MD ASSOCIATE Arnulfo Jordan MD LAB BLOOD ORDERABLES Final Result Performing Organization Address [facility]/ZIP Co de Phone Number [facility] [address] [place] [address] * POCT glucose (09/25/2024 8:32 AM CLINIC MD ASSOCIATE) Pathologist [facility] Glucose, POC 89 70 - 199 mg/dL Comment: For Glucose values <35 mg/dl when Hematocrit is >60 mg/dl,the test may not accurately detect significant hypoglycemia,and testing in the Laboratory should be considered if clinically indicated. Blood 09/25/2024 8:32 AM CLINIC MD ASSOCIATE 09/25/2024 8:32 AM CLINIC MD ASSOCIATE Arnulfo Jordan MD LAB POCT ORDERABLES - DEVIC E Final Result Performing Organization Address City/[facility]/ZIP Co de Phone Number [facility] [address] [place] [address] * (ABNORMAL) CBC with auto differential (09/25/2024 8:32 AM CLINIC MD ASSOCIATE) Pathologist [facility] WBC 9.2 3.8 - 9.9 K/cumm Hgb 7.2(L) 11.9 - 15.5 g/dL [facility] Hct 24.6(L) 35.6 - 45.5 % [facility] Plt 259 150 - 400 K/cumm [facility] MPV 11.7 9.1 - 12.3 fL [facility] RBC 2.49(L) 3.90 - 5.20 M/cumm [facility] MCV 98.8(H) 81.3 - 96.4 fL [facility] MCH 28.9 27.1 - 33.3 pg [facility] MCHC 29.3(L) 32.3 - 35.7 g/dL [facility] RDW CV 15.8(H) 11.1 - 14.9 % [facility] RDW SD 55.9(H) 35.7 - 48.1 fL [facility] NRBC abs 0.00 0.00 - 0.01 K/cumm [facility] Blood 09/25/2024 8:32 AM CLINIC MD ASSOCIATE 09/25/2024 8:46 AM CLINIC MD ASSOCIATE Arnulfo Jordan MD LAB BLOOD ORDERABLES Final Result [facility] [address] Department of Laboratories [place], [place] [id number] * (ABNORMAL) Comprehensive metabolic panel (09/25/2024 8:32 AM CLINIC MD ASSOCIATE) Sodium 143 135 - 145 mmol/L Potassium, pl 3.2(L) 3.3 - 4.9 mmol/L [facility] Chloride 111(H) 97 - 110 mmol/L [facility] CO2 20(L) 22 - 32 mmol/L [facility] Anion gap 12 2 - 15 mmol/L [facility] BUN 26(H) 6 - 25 mg/dL [facility] Creatinine 1.24(H) 0.60 - 1.10 mg/dL [facility] Glucose 85 70 - 199 mg/dL [facility] Comment: Interpretive Data Fasting glucose >/= [...] 2022. Calcium 7.7(L) 8.5 - 10.3 mg/dL [facility] Bilirubin, total 0.2 0.1 - 1.2 mg/dL [facility] Protein, pl 5.8(L) 6.5 - 8.5 g/dL [facility] Albumin 1.9(L) 3.5 - 5.0 g/dL [facility] Alk phos 137(H) 40 - 130 Units/L [facility] ALT 13 7 - 45 Units/L [facility] AST 28 10 - 45 Units/L [facility] Blood 09/25/2024 8:32 AM CLINIC MD ASSOCIATE 09/25/2024 8:46 AM CLINIC MD ASSOCIATE Arnulfo Jordan MD LAB BLOOD ORDERABLES Final Result Performing Organization Address [facility]/ZIP Co de Phone Number [facility] [address] [place] [address] * POCT glucose (09/25/2024 4:49 AM CLINIC MD ASSOCIATE) [facility] Glucose, POC 86 70 - 199 mg/dL Comment: For Glucose values <35 mg/dl when Hematocrit is >60 mg/dl,the test may not accurately detect significant hypoglycemia,and testing in the Laboratory should be considered if clinically indicated. Blood 09/25/2024 4:49 AM CLINIC MD ASSOCIATE 09/25/2024 4:49 AM CLINIC MD ASSOCIATE Arnulfo Jordan MD LAB POCT ORDERABLES - DEVIC E Final Result Performing Organization Address [facility]/ZIP Co de Phone Number [facility] [address] [place] [address] * POCT glucose (09/25/2024 12:48 AM CLINIC MD ASSOCIATE) Glucose, POC 83 70 - 199 mg/dL Comment: For Glucose values <35 mg/dl when Hematocrit is >60 mg/dl,the test may not accurately detect significant hypoglycemia,and testing in the Laboratory should be considered if clinically indicated. Blood 09/25/2024 12:4 8 AM CLINIC MD ASSOCIATE 09/25/2024 12:48 AM CLINIC MD ASSOCIATE Arnulfo Jordan MD LAB POCT ORDERABLES - DEVIC E Final Result Performing Organization Address [facility] de Phone Number [facility] [address] [facility] [place] [address] * POCT glucose (09/24/2024 8:56 PM CLINIC MD ASSOCIATE) Glucose, POC 83 70 - 199 mg/dL Comment: For Glucose values <35 mg/dl when Hematocrit is >60 mg/dl,the test may not accurately detect significant hypoglycemia,and testing in the Laboratory should be considered if clinically indicated. Blood 09/24/2024 8:56 PM CLINIC MD ASSOCIATE 09/24/2024 8:56 PM CLINIC MD ASSOCIATE Result [facility] Arnulfo Jordan MD LAB POCT ORDERABLES - DEVIC E Final Result Performing Organization Address [facility] de Phone Number [facility] [address] [facility] [place] [address] * POCT glucose (09/24/2024 4:20 PM CLINIC MD ASSOCIATE) Glucose, POC 83 70 - 199 mg/dL Comment: For Glucose values <35 mg/dl when Hematocrit is >60 mg/dl,the test may not accurately detect significant hypoglycemia,and testing in the Laboratory should be considered if clinically indicated. Blood 09/24/2024 4:20 PM CLINIC MD ASSOCIATE 09/24/2024 4:20 PM CLINIC MD ASSOCIATE Arnulfo Jordan MD LAB POCT ORDERABLES - DEVIC E Final Result Performing Organization Address [facility]/ZIP Co de Phone Number [facility] [address] Department [place] [address] * POCT glucose (09/24/2024 12:13 PM CLINIC MD ASSOCIATE) Glucose, POC 91 70 - 199 mg/dL Comment: For Glucose values <35 mg/dl when Hematocrit is >60 mg/dl,the test may not accurately detect significant hypoglycemia,and testing in the Laboratory should be considered if clinically indicated. Blood 09/24/2024 12:1 3 PM CLINIC MD ASSOCIATE 09/24/2024 12:13 PM CLINIC MD ASSOCIATE Arnulfo Jordan MD LAB POCT ORDERABLES - DEVIC E Final Result Performing Organization Address [facility] Co de Phone Number [facility] [address] Department [place] [address] * XR Chest 1 View (09/24/2024 8:18 AM CLINIC MD ASSOCIATE) Anatomical Region Laterality Modality Body, Chest N/A Computed Radiogr aphy 09/24/2024 8:36 AM CLINIC MD ASSOCIATE Impressions 09/24/2024 8:36 AM CLINIC MD ASSOCIATE Patchy airspace opacities greatest in the left lung base but also projecting over the left hilum and to a lesser extent the right hilum are not substantially changed and likely representing multifocal pneumonia and/or sequela of aspiration. Trace left pleural effusion. No right pleural effusion. No pneumothorax. Heart size is stable. Electronically signed by: Nithin Gonzalez MD, PHD Narrative 09/24/2024 8:36 AM CLINIC MD ASSOCIATE EXAMINATION: XR CHEST 1 VIEW HISTORY: Shortness [...] lt * POCT glucose (09/24/2024 4:12 AM CLINIC MD ASSOCIATE) Glucose, POC 129 70 - 199 mg/dL Comment: For Glucose values <35 mg/dl when Hematocrit is >60 mg/dl,the test may not accurately detect significant hypoglycemia,and testing in the Laboratory should be considered if clinically indicated. Blood 09/24/2024 4:12 AM CLINIC MD ASSOCIATE 09/24/2024 4:12 AM CLINIC MD ASSOCIATE Arnulfo Jordan MD LAB POCT ORDERABLES - DEVIC E Final Result Performing Organization Address [facility] Co de Phone Number [facility] [address] [place] [address] * POCT glucose (09/24/2024 2:44 AM CLINIC MD ASSOCIATE) Glucose, POC 132 70 - 199 mg/dL Comment: For Glucose values <35 mg/dl when Hematocrit is >60 mg/dl,the test may not accurately detect significant hypoglycemia,and testing in the Laboratory should be considered if clinically indicated. Blood 09/24/2024 2:44 AM CLINIC MD ASSOCIATE 09/24/2024 2:44 AM CLINIC MD ASSOCIATE Result [facility] Arnulfo Jordan MD LAB POCT ORDERABLES - DEVIC E Final Result Performing Organization Address [facility] Co de Phone Number [facility] [address] [facility] [employer] [place] [address] * (ABNORMAL) POCT glucose (09/24/2024 1:06 AM CLINIC MD ASSOCIATE) Glucose, POC 59(L) 70 - 199 mg/dL Comment: For Glucose values <35 mg/dl when Hematocrit is >60 mg/dl,the test may not accurately detect significant hypoglycemia,and testing in the Laboratory should be considered if clinically indicated. Blood 09/24/2024 1:06 AM CLINIC MD ASSOCIATE 09/24/2024 1:06 AM CLINIC MD ASSOCIATE Arnulfo Jordan MD LAB POCT ORDERABLES - DEVIC E Final Result Performing Organization Address [facility] de Phone Number [facility] [address] [place] [address] * (ABNORMAL) POCT glucose (09/24/2024 12:44 AM CLINIC MD ASSOCIATE) Glucose, POC 65(L) 70 - 199 mg/dL Comment: For Glucose values <35 mg/dl when Hematocrit is >60 mg/dl,the test may not accurately detect significant hypoglycemia,and testing in the Laboratory should be considered if clinically indicated. Blood 09/24/2024 12:4 4 AM CLINIC MD ASSOCIATE 09/24/2024 12:44 AM CLINIC MD ASSOCIATE Result [facility] Arnulfo Jordan MD LAB POCT ORDERABLES - DEVIC E Final Result Performing Organization Address [facility] de Phone Number [facility] [address] [place] [address] * (ABNORMAL) POCT glucose (09/24/2024 12:22 AM CLINIC MD ASSOCIATE) Glucose, POC 68(L) 70 - 199 mg/dL Comment: For Glucose values <35 mg/dl when Hematocrit is >60 mg/dl,the test may not accurately detect significant hypoglycemia,and testing in the Laboratory should be considered if clinically indicated. Blood 09/24/2024 12:2 2 AM CLINIC MD ASSOCIATE 09/24/2024 12:22 AM CLINIC MD ASSOCIATE Arnulfo Jordan MD LAB POCT ORDERABLES - DEVIC E Final Result Performing Organization Address [facility] de Phone Number [facility] [address] [place] [address] * POCT glucose (09/23/2024 9:34 PM CLINIC MD ASSOCIATE) Glucose, POC 80 70 - 199 mg/dL Comment: For Glucose values <35 mg/dl when Hematocrit is >60 mg/dl,the test may not accurately detect significant hypoglycemia,and testing in the Laboratory should be considered if clinically indicated. Blood 09/23/2024 9:34 PM CLINIC MD ASSOCIATE 09/23/2024 9:34 PM CLINIC MD ASSOCIATE [facility] Sayyeda Aziz DO LAB POCT ORDERABLES - DE VICE Final Result Performing Organization Address City/[facility]/ZIP Co de Phone Number [facility] [address] [place] [address] * POCT glucose (09/23/2024 4:10 PM CLINIC MD ASSOCIATE) Glucose, POC 121 70 - 199 mg/dL Comment: For Glucose values <35 mg/dl when Hematocrit is >60 mg/dl,the test may not accurately detect significant hypoglycemia,and testing in the Laboratory should be considered if clinically indicated. Blood 09/23/2024 4:10 PM CLINIC MD ASSOCIATE 09/23/2024 4:10 PM CLINIC MD ASSOCIATE [facility] [employer]eda Aziz DO LAB POCT ORDERABLES - DE VICE Final Result Performing Organization Address [facility]/ZIP Co de Phone Number [facility] [address] [place] [address] * POCT glucose (09/23/2024 1:10 PM CLINIC MD ASSOCIATE) Glucose, POC 115 70 - 199 mg/dL Comment: For Glucose values <35 mg/dl when Hematocrit is >60 mg/dl,the test may not accurately detect significant hypoglycemia,and testing in the Laboratory should be considered if clinically indicated. Blood 09/23/2024 1:10 PM CLINIC MD ASSOCIATE 09/23/2024 1:10 PM CLINIC MD ASSOCIATE Flo Villagran MD LAB POCT ORDERABLES - DEVICE Final Result Performing Organization Address [facility] de Phone Number [facility] [address] [facility] [place] [address] * POCT glucose (09/23/2024 12:18 PM CLINIC MD ASSOCIATE) Glucose, POC 83 70 - 199 mg/dL Comment: For Glucose values <35 mg/dl when Hematocrit is >60 mg/dl,the test may not accurately detect significant hypoglycemia,and testing in the Laboratory should be considered if clinically indicated. Blood 09/23/2024 12:1 8 PM CLINIC MD ASSOCIATE 09/23/2024 12:18 PM CLINIC MD ASSOCIATE Flo Villagran MD LAB POCT ORDERABLES - DEVICE Final Result Performing Organization Address [facility] de Phone Number [facility] [address] [facility] [place] [address] * (ABNORMAL) POCT glucose (09/23/2024 11:55 AM CLINIC MD ASSOCIATE) Glucose, POC 69(L) 70 - 199 mg/dL Comment: For Glucose values <35 mg/dl when Hematocrit is >60 mg/dl,the test may not accurately detect significant hypoglycemia,and testing in the Laboratory should be considered if clinically indicated. Blood 09/23/2024 11:5 5 AM CLINIC MD ASSOCIATE 09/23/2024 11:55 AM CLINIC MD ASSOCIATE Flo Villagran MD LAB POCT ORDERABLES - DEVICE Final Result Performing Organization Address [facility] de Phone Number [facility] [address] [facility] [place] [address] * (ABNORMAL) POCT glucose (09/23/2024 11:54 AM CLINIC MD ASSOCIATE) Glucose, POC 63(L) 70 - 199 mg/dL Comment: For Glucose values <35 mg/dl when Hematocrit is >60 mg/dl,the test may not accurately detect significant hypoglycemia,and testing in the Laboratory should be considered if clinically indicated. Blood 09/23/2024 11:5 4 AM CLINIC MD ASSOCIATE 09/23/2024 11:54 AM CLINIC MD ASSOCIATE Flo Villagran MD LAB POCT ORDERABLES - DEVICE Final Result Performing Organization Address [facility] Co de Phone Number [facility] [address] [facility] [place] [address] * POCT glucose (09/23/2024 7:47 AM CLINIC MD ASSOCIATE) Glucose, POC 71 70 - 199 mg/dL Comment: For Glucose values <35 mg/dl when Hematocrit is >60 mg/dl,the test may not accurately detect significant hypoglycemia,and testing in the Laboratory should be considered if clinically indicated. Blood 09/23/2024 7:47 AM CLINIC MD ASSOCIATE 09/23/2024 7:47 AM CLINIC MD ASSOCIATE Result [facility] Flo Villagran MD LAB POCT ORDERABLES - DEVICE Final Result Performing Organization Address [facility] de Phone Number [facility] [address] [facility] [place] [address] * POCT glucose (09/23/2024 3:27 AM CLINIC MD ASSOCIATE) Glucose, POC 92 70 - 199 mg/dL Comment: For Glucose values <35 mg/dl when Hematocrit is >60 mg/dl,the test may not accurately detect significant hypoglycemia,and testing in the Laboratory should be considered if clinically indicated. Blood 09/23/2024 3:27 AM CLINIC MD ASSOCIATE 09/23/2024 3:27 AM CLINIC MD ASSOCIATE Flo Villagran MD LAB POCT ORDERABLES - DEVICE Final Result Performing Organization Address [facility] Co de Phone Number [facility] [address] [facility] [place] [address] * POCT glucose (09/23/2024 1:13 AM CLINIC MD ASSOCIATE) Glucose, POC 113 70 - 199 mg/dL Comment: For Glucose values <35 mg/dl when Hematocrit is >60 mg/dl,the test may not accurately detect significant hypoglycemia,and testing in the Laboratory should be considered if clinically indicated. Blood 09/23/2024 1:13 AM CLINIC MD ASSOCIATE 09/23/2024 1:13 AM CLINIC MD ASSOCIATE Flo Villagran MD LAB POCT ORDERABLES - DEVICE Final Result Performing Organization Address [facility] Co de Phone Number [facility] [address] [place] [address] * POCT glucose (09/23/2024 12:17 AM CLINIC MD ASSOCIATE) Glucose, POC 195 70 - 199 mg/dL Comment: For Glucose values <35 mg/dl when Hematocrit is >60 mg/dl,the test may not accurately detect significant hypoglycemia,and testing in the Laboratory should be considered if clinically indicated. Blood 09/23/2024 12:1 7 AM CLINIC MD ASSOCIATE 09/23/2024 12:17 AM CLINIC MD ASSOCIATE Flo Villagran MD LAB POCT ORDERABLES - DEVICE Final Result Performing Organization Address [facility] Co de Phone Number [facility] [address] [place] [address] * (ABNORMAL) POCT glucose (09/22/2024 11:54 PM CLINIC MD ASSOCIATE) Glucose, POC 63(L) 70 - 199 mg/dL Comment: For Glucose values <35 mg/dl when Hematocrit is >60 mg/dl,the test may not accurately detect significant hypoglycemia,and testing in the Laboratory should be considered if clinically indicated. Blood 09/22/2024 11:5 4 PM CLINIC MD ASSOCIATE 09/22/2024 11:54 PM CLINIC MD ASSOCIATE Result [facility] Flo Villagran MD LAB POCT ORDERABLES - DEVICE Final Result Performing Organization Address [facility] Co de Phone Number [facility] [address] Department of [place], [place] [id number] * (ABNORMAL) Blood gas, arterial (09/22/2024 8:33 PM CLINIC MD ASSOCIATE) pH, Art 7.44 7.35 - 7.45 PCO2, Arterial 37 35 - 45 mmHg [facility] PO2, Arterial 81(L) 83 - 108 mmHg [facility] HCO3 Art (Calculated) 25 20 - 30 mmol/L [facility] BE, art 1 mmol/L [facility] Comment: Interpretive Data No Reference Range Established Current Interpretive Data was last revised on 2017 O2 Sat Art (Calculated) 96 94 - 98 % [facility] Blood 09/22/2024 8:33 PM CLINIC MD ASSOCIATE 09/22/2024 8:36 PM CLINIC MD ASSOCIATE Chad Veras MD LAB BLOOD ORDERABLES Final R esult Performing Organization Address [facility] Co de Phone Number [facility] [address] [place], [place] [phone] * POCT glucose (09/22/2024 7:46 PM CLINIC MD ASSOCIATE) Glucose, POC 95 70 - 199 mg/dL Comment: For Glucose values <35 mg/dl when Hematocrit is >60 mg/dl,the test may not accurately detect significant hypoglycemia,and testing in the Laboratory should be considered if clinically indicated. Blood 09/22/2024 7:46 PM CLINIC MD ASSOCIATE 09/22/2024 7:46 PM CLINIC MD ASSOCIATE Flo Villagran MD LAB POCT ORDERABLES - DEVICE Final Result Performing Organization Address [facility] Co de Phone Number [facility] [address] Department of [place], [place] [id number] * POCT glucose (09/22/2024 4:04 PM CLINIC MD ASSOCIATE) Glucose, POC 166 70 - 199 mg/dL Comment: For Glucose values <35 mg/dl when Hematocrit is >60 mg/dl,the test may not accurately detect significant hypoglycemia,and testing in the Laboratory should be considered if clinically indicated. Blood 09/22/2024 4:04 PM CLINIC MD ASSOCIATE 09/22/2024 4:04 PM CLINIC MD ASSOCIATE Flo Villagran MD LAB POCT ORDERABLES - DEVICE Final Result Performing Organization Address [facility] Co de Phone Number [facility] [address] Department [place] [address] * POCT glucose (09/22/2024 11:51 AM CLINIC MD ASSOCIATE) Glucose, POC 187 70 - 199 mg/dL Comment: For Glucose values <35 mg/dl when Hematocrit is >60 mg/dl,the test may not accurately detect significant hypoglycemia,and testing in the Laboratory should be considered if clinically indicated. Blood 09/22/2024 11:5 1 AM CLINIC MD ASSOCIATE 09/22/2024 11:51 AM CLINIC MD ASSOCIATE Flo Villagran MD LAB POCT ORDERABLES - DEVICE Final Result Performing Organization Address [facility] Co de Phone Number [facility] [address] Department [place] [address] * (ABNORMAL) POCT glucose (09/22/2024 8:42 AM CLINIC MD ASSOCIATE) Glucose, POC 210(H) 70 - 199 mg/dL Comment: For Glucose values <35 mg/dl when Hematocrit is >60 mg/dl,the test may not accurately detect significant hypoglycemia,and testing in the Laboratory should be considered if clinically indicated. Blood 09/22/2024 8:42 AM CLINIC MD ASSOCIATE 09/22/2024 8:42 AM CLINIC MD ASSOCIATE Flo Villagran MD LAB POCT ORDERABLES - DEVICE Final Result Performing Organization Address [facility] Co de Phone Number [facility] [address] Department [place] [address] * POCT glucose (09/22/2024 4:05 AM CLINIC MD ASSOCIATE) [facility] Signature Glucose, POC 199 70 - 199 mg/dL Comment: For Glucose values <35 mg/dl when Hematocrit is >60 mg/dl,the test may not accurately detect significant hypoglycemia,and testing in the Laboratory should be considered if clinically indicated. Blood 09/22/2024 4:05 AM CLINIC MD ASSOCIATE 09/22/2024 4:05 AM CLINIC MD ASSOCIATE Flo Villagran MD LAB POCT ORDERABLES - DEVICE Final Result Performing Organization Address [facility] Co de Phone Number [facility] [address] Department [place] [address] * XR Chest 1 View (09/22/2024 3:59 AM CLINIC MD ASSOCIATE) Anatomical Region Laterality Modality Body, Chest N/A Computed Radiogr aphy 09/22/2024 9:18 AM CLINIC MD ASSOCIATE Impressions 09/22/2024 9:18 AM CLINIC MD ASSOCIATE The current study is compared with the [...] Blair Lopez M.D. Narrative 09/22/2024 9:18 AM CLINIC MD ASSOCIATE EXAMINATION: XR CHEST 1 VIEW Procedure Note [...] lt * (ABNORMAL) eGFR (09/22/2024 2:24 AM CLINIC MD ASSOCIATE) eGFR 53(L) >=60 mL/min/1. 73 m2 Comment: [...] last reviewed 2021. Blood 09/22/2024 2:24 AM CLINIC MD ASSOCIATE 09/22/2024 2:55 AM CLINIC MD ASSOCIATE Flo Villagran MD LAB BLOOD ORDERABLES Final R esult [facility] [address] [place] [address] * (ABNORMAL) CBC without differential (09/22/2024 2:24 AM CLINIC MD ASSOCIATE) WBC 15.1(H) 3.8 - 9.9 K/cumm Hgb 7.5(L) 11.9 - 15.5 g/dL [facility] Hct 23.4(L) 35.6 - 45.5 % [facility] Plt 248 150 - 400 K/cumm [facility] MPV 12.5(H) 9.1 - 12.3 fL [facility] RBC 2.55(L) 3.90 - 5.20 M/cumm [facility] MCV 91.8 81.3 - 96.4 fL [facility] MCH 29.4 27.1 - 33.3 pg [facility] MCHC 32.1(L) 32.3 - 35.7 g/dL [facility] RDW CV 15.2(H) 11.1 - 14.9 % [facility] RDW SD 50.1(H) 35.7 - 48.1 fL [facility] NRBC abs 0.00 0.00 - 0.01 K/cumm [facility] Blood 09/22/2024 2:24 AM CLINIC MD ASSOCIATE 09/22/2024 2:40 AM CLINIC MD ASSOCIATE Flo Villagran MD LAB BLOOD ORDERABLES Final R esult Performing Organization Address [facility] Co de Phone Number [facility] [address] [facility] [employer] [place], [place] [phone] * Magnesium (09/22/2024 2:24 AM CLINIC MD ASSOCIATE) Pathologist [facility] Magnesium 2.0 1.4 - 2.5 mg/dL Blood 09/22/2024 2:24 AM CLINIC MD ASSOCIATE 09/22/2024 2:55 AM CLINIC MD ASSOCIATE Flo Villagran MD LAB BLOOD ORDERABLES Final R esult Performing Organization Address [facility] Co de Phone Number [facility] [address] [place] [address] * (ABNORMAL) Renal function panel (09/22/2024 2:24 AM CLINIC MD ASSOCIATE) Sodium 140 135 - 145 mmol/L Potassium, pl 3.4 3.3 - 4.9 mmol/L [facility] Chloride 108 97 - 110 mmol/L [facility] CO2 20(L) 22 - 32 mmol/L [facility] Anion gap 12 2 - 15 mmol/L [facility] BUN 31(H) 6 - 25 mg/dL [facility] Creatinine 1.25(H) 0.60 - 1.10 mg/dL [facility] Glucose 189 70 - 199 mg/dL [facility] Comment: Interpretive Data Fasting glucose >/= [...] 2022. Calcium 7.5(L) 8.5 - 10.3 mg/dL [facility] Phosphorus, pl 3.6 2.3 - 4.5 mg/dL [facility] Albumin 2.1(L) 3.5 - 5.0 g/dL [facility] Blood 09/22/2024 2:24 AM CLINIC MD ASSOCIATE 09/22/2024 2:55 AM CLINIC MD ASSOCIATE us Flo Villagran MD LAB BLOOD ORDERABLES Final R esult [facility] [address] [place] [address] * POCT glucose (09/21/2024 11:58 PM CLINIC MD ASSOCIATE) Glucose, POC 177 70 - 199 mg/dL Comment: For Glucose values <35 mg/dl when Hematocrit is >60 mg/dl,the test may not accurately detect significant hypoglycemia,and testing in the Laboratory should be considered if clinically indicated. Blood 09/21/2024 11:5 8 PM CLINIC MD ASSOCIATE 09/21/2024 11:58 PM CLINIC MD ASSOCIATE Flo Villagran MD LAB POCT ORDERABLES - DEVICE Final Result Performing Organization Address [facility] Co de Phone Number [facility] [address] [facility] [place] [address] * POCT glucose (09/21/2024 7:01 PM CLINIC MD ASSOCIATE) Glucose, POC 134 70 - 199 mg/dL Comment: For Glucose values <35 mg/dl when Hematocrit is >60 mg/dl,the test may not accurately detect significant hypoglycemia,and testing in the Laboratory should be considered if clinically indicated. Blood 09/21/2024 7:01 PM CLINIC MD ASSOCIATE 09/21/2024 7:01 PM CLINIC MD ASSOCIATE Flo Villagran MD LAB POCT ORDERABLES - DEVICE Final Result Performing Organization Address [facility] Co de Phone Number [facility] [address] [facility] [place] [address] * POCT glucose (09/21/2024 3:10 PM CLINIC MD ASSOCIATE) Glucose, POC 140 70 - 199 mg/dL Comment: For Glucose values <35 mg/dl when Hematocrit is >60 mg/dl,the test may not accurately detect significant hypoglycemia,and testing in the Laboratory should be considered if clinically indicated. Blood 09/21/2024 3:10 PM CLINIC MD ASSOCIATE 09/21/2024 3:10 PM CLINIC MD ASSOCIATE Flo Villagran MD LAB POCT ORDERABLES - DEVICE Final Result Performing Organization Address [facility]/ZIP Co de Phone Number [facility] [address] [facility] [place] [address] * Potassium (09/21/2024 2:07 PM CLINIC MD ASSOCIATE) Potassium, pl 3.9 3.3 - 4.9 mmol/L Blood 09/21/2024 2:07 PM CLINIC MD ASSOCIATE 09/21/2024 2:07 PM CLINIC MD ASSOCIATE Flo Villagran MD LAB BLOOD ORDERABLES Final R esult Performing Organization Address [facility] de Phone Number [facility] [address] [facility] [place], [place] [phone] * (ABNORMAL) POCT glucose (09/21/2024 11:30 AM CLINIC MD ASSOCIATE) Glucose, POC 200(H) 70 - 199 mg/dL Comment: For Glucose values <35 mg/dl when Hematocrit is >60 mg/dl,the test may not accurately detect significant hypoglycemia,and testing in the Laboratory should be considered if clinically indicated. Blood 09/21/2024 11:3 0 AM CLINIC MD ASSOCIATE 09/21/2024 11:30 AM CLINIC MD ASSOCIATE Flo Villagran MD LAB POCT ORDERABLES - DEVICE Final Result Performing Organization Address [facility] de Phone Number [facility] [address] [facility] [place], [place] [phone] * (ABNORMAL) POCT glucose (09/21/2024 7:19 AM CLINIC MD ASSOCIATE) Glucose, POC 230(H) 70 - 199 mg/dL Comment: For Glucose values <35 mg/dl when Hematocrit is >60 mg/dl,the test may not accurately detect significant hypoglycemia,and testing in the Laboratory should be considered if clinically indicated. Blood 09/21/2024 7:19 AM CLINIC MD ASSOCIATE 09/21/2024 7:19 AM CLINIC MD ASSOCIATE Flo Villagran MD LAB POCT ORDERABLES - DEVICE Final Result Performing Organization Address [facility] de Phone Number [facility] [address] Department [place] [address] * XR Chest 1 View (09/21/2024 4:44 AM CLINIC MD ASSOCIATE) Anatomical Region Laterality Modality Body, Chest N/A Computed Radiogr aphy 09/21/2024 7:37 AM CLINIC MD ASSOCIATE Impressions 09/21/2024 7:37 AM CLINIC MD ASSOCIATE Comparison is made to 2024. Endotracheal tube 2.7 cm above the jessenia. Nasogastric tube tip located with diaphragm, not included [id number]. There is slightly improved aeration within the left retrocardiac location likely representing improving aspiration/pneumonia. There is mild right basilar atelectasis. No pleural effusion or pneumothorax. Stable heart size. Electronically signed by: Ruiz Coles M.D. Narrative 09/21/2024 7:37 AM CLINIC MD ASSOCIATE Examination: Chest 1 view Procedure Note Ruiz Coles MD - 09/21/2024 Examination: Chest 1 view IMPRESSION: Comparison is made to 2024. Endotracheal tube 2.7 cm above the jessenia. Nasogastric tube tip located with diaphragm, not included [id number]. There is slightly improved aeration within the left retrocardiac location likely representing improving aspiration/pneumonia. There is mild right basilar atelectasis. No pleural effusion or pneumothorax. Stable heart size. Electronically signed by: Ruiz Coles M.D. us Flo Villagran MD IMG XR PROCEDURES Final Resu lt * (ABNORMAL) POCT glucose (09/21/2024 3:47 AM CLINIC MD ASSOCIATE) Glucose, POC 235(H) 70 - 199 mg/dL Comment: For Glucose values <35 mg/dl when Hematocrit is >60 mg/dl,the test may not accurately detect significant hypoglycemia,and testing in the Laboratory should be considered if clinically indicated. Blood 09/21/2024 3:47 AM CLINIC MD ASSOCIATE 09/21/2024 3:47 AM CLINIC MD ASSOCIATE us Flo Villagran MD LAB POCT ORDERABLES - DEVICE Final Result Performing Organization Address [facility] Co de Phone Number [facility] [address] [place] [address] * (ABNORMAL) eGFR (09/21/2024 1:48 AM CLINIC MD ASSOCIATE) eGFR 50(L) >=60 mL/min/1. 73 m2 Comment: [...] last reviewed 2021. Blood 09/21/2024 1:48 AM CLINIC MD ASSOCIATE 09/21/2024 2:06 AM CLINIC MD ASSOCIATE Flo Villagran MD LAB BLOOD ORDERABLES Final R esult Performing Organization Address [facility]/ZIP Co de Phone Number [facility] [address] Department [place] [address] * (ABNORMAL) CBC without differential (09/21/2024 1:48 AM CLINIC MD ASSOCIATE) Pathologist [facility] WBC 13.1(H) 3.8 - 9.9 K/cumm Hgb 7.6(L) 11.9 - 15.5 g/dL [facility] Hct 24.6(L) 35.6 - 45.5 % [facility] Plt 229 150 - 400 K/cumm [facility] MPV 12.5(H) 9.1 - 12.3 fL [facility] RBC 2.65(L) 3.90 - 5.20 M/cumm [facility] MCV 92.8 81.3 - 96.4 fL [facility] MCH 28.7 27.1 - 33.3 pg [facility] MCHC 30.9(L) 32.3 - 35.7 g/dL [facility] RDW CV 15.5(H) 11.1 - 14.9 % [facility] RDW SD 51.8(H) 35.7 - 48.1 fL [facility] NRBC abs 0.00 0.00 - 0.01 K/cumm [facility] Blood 09/21/2024 1:48 AM CLINIC MD ASSOCIATE 09/21/2024 2:06 AM CLINIC MD ASSOCIATE Flo Villagran MD LAB BLOOD ORDERABLES Final R esult Performing Organization Address [facility] Co de Phone Number [place] [address] [place] [address] * Phosphorus (09/21/2024 1:48 AM CLINIC MD ASSOCIATE) Phosphorus, pl 3.2 2.3 - 4.5 mg/dL Blood 09/21/2024 1:48 AM CLINIC MD ASSOCIATE 09/21/2024 2:06 AM CLINIC MD ASSOCIATE Flo Villagran MD LAB BLOOD ORDERABLES Final R esult Performing Organization Address [facility] Co de Phone Number [facility] [address] [facility] [place] [place] [address] * Magnesium (09/21/2024 1:48 AM CLINIC MD ASSOCIATE) Magnesium 2.0 1.4 - 2.5 mg/dL Blood 09/21/2024 1:48 AM CLINIC MD ASSOCIATE 09/21/2024 2:06 AM CLINIC MD ASSOCIATE Flo Villagran MD LAB BLOOD ORDERABLES Final R esult Performing Organization Address [facility]/ZIP Co de Phone Number [facility] [address] Department [place] [address] * Bilirubin, direct (09/21/2024 1:48 AM CLINIC MD ASSOCIATE) [facility] Bilirubin, direct <0.2 0.1 - 0.3 mg/dL Blood 09/21/2024 1:48 AM CLINIC MD ASSOCIATE 09/21/2024 2:06 AM CLINIC MD ASSOCIATE Flo Villagran MD LAB BLOOD ORDERABLES Final R esult Performing Organization Address [facility] Co de Phone Number [facility] [address] Department [place] [address] * (ABNORMAL) Comprehensive metabolic panel (09/21/2024 1:48 AM CLINIC MD ASSOCIATE) [facility] Sodium 144 135 - 145 mmol/L Potassium, pl 2.9(L) 3.3 - 4.9 mmol/L [facility] Chloride 112(H) 97 - 110 mmol/L [facility] CO2 19(L) 22 - 32 mmol/L [facility] Anion gap 13 2 - 15 mmol/L [facility] BUN 32(H) 6 - 25 mg/dL [facility] Creatinine 1.31(H) 0.60 - 1.10 mg/dL [facility] Glucose 259(H) 70 - 199 mg/dL [facility] Comment: Interpretive Data Fasting glucose >/= [...] 2022. Calcium 7.4(L) 8.5 - 10.3 mg/dL [facility] Bilirubin, total 0.2 0.1 - 1.2 mg/dL [facility] Protein, pl 5.6(L) 6.5 - 8.5 g/dL [facility] Albumin 2.0(L) 3.5 - 5.0 g/dL [facility] Alk phos 135(H) 40 - 130 Units/L [facility] ALT 16 7 - 45 Units/L [facility] AST 23 10 - 45 Units/L [facility] Blood 09/21/2024 1:48 AM CLINIC MD ASSOCIATE 09/21/2024 2:06 AM CLINIC MD ASSOCIATE Flo Villagran MD LAB BLOOD ORDERABLES Final R esult Performing Organization Address [facility] Co de Phone Number [facility] [address] [place] [address] * (ABNORMAL) POCT glucose (09/20/2024 11:54 PM CLINIC MD ASSOCIATE) Glucose, POC 264(H) 70 - 199 mg/dL Comment: For Glucose values <35 mg/dl when Hematocrit is >60 mg/dl,the test may not accurately detect significant hypoglycemia,and testing in the Laboratory should be considered if clinically indicated. Blood 09/20/2024 11:5 4 PM CLINIC MD ASSOCIATE 09/20/2024 11:54 PM CLINIC MD ASSOCIATE Flo Villagran MD LAB POCT ORDERABLES - DEVICE Final Result Performing Organization Address [facility] Co de Phone Number [facility] [address] [place] [address] * (ABNORMAL) POCT glucose (09/20/2024 7:03 PM CLINIC MD ASSOCIATE) Glucose, POC 253(H) 70 - 199 mg/dL Comment: For Glucose values <35 mg/dl when Hematocrit is >60 mg/dl,the test may not accurately detect significant hypoglycemia,and testing in the Laboratory should be considered if clinically indicated. Blood 09/20/2024 7:03 PM CLINIC MD ASSOCIATE 09/20/2024 7:03 PM CLINIC MD ASSOCIATE Flo Villagran MD LAB POCT ORDERABLES - DEVICE Final Result Performing Organization Address [facility] Co de Phone Number [facility] [address] Department [place] [address] * POCT glucose (09/20/2024 3:28 PM CLINIC MD ASSOCIATE) Glucose, POC 179 70 - 199 mg/dL Comment: For Glucose values <35 mg/dl when Hematocrit is >60 mg/dl,the test may not accurately detect significant hypoglycemia,and testing in the Laboratory should be considered if clinically indicated. Blood 09/20/2024 3:28 PM CLINIC MD ASSOCIATE 09/20/2024 3:28 PM CLINIC MD ASSOCIATE Flo Villagran MD LAB POCT ORDERABLES - DEVICE Final Result Performing Organization Address [facility] de Phone Number [facility] [address] [place] [address] * (ABNORMAL) POCT glucose (09/20/2024 11:48 AM CLINIC MD ASSOCIATE) [facility] Signature Glucose, POC 213(H) 70 - 199 mg/dL Comment: For Glucose values <35 mg/dl when Hematocrit is >60 mg/dl,the test may not accurately detect significant hypoglycemia,and testing in the Laboratory should be considered if clinically indicated. Blood 09/20/2024 11:4 8 AM CLINIC MD ASSOCIATE 09/20/2024 11:48 AM CLINIC MD ASSOCIATE Flo Villagran MD LAB POCT ORDERABLES - DEVICE Final Result Performing Organization Address [facility] Co de Phone Number [facility] [address] [place] [address] * (ABNORMAL) Blood gas, arterial (09/20/2024 10:54 AM CLINIC MD ASSOCIATE) [facility] pH, Art 7.43 7.35 - 7.45 PCO2, Arterial 30(L) 35 - 45 mmHg [facility] PO2, Arterial 82(L) 83 - 108 mmHg [facility] HCO3 Art (Calculated) 20 20 - 30 mmol/L [facility] BE, art -3 mmol/L [facility] Comment: Interpretive Data No Reference Range Established Current Interpretive Data was last revised on 2017 O2 Sat Art (Calculated) 96 94 - 98 % [facility] Blood 09/20/2024 10:5 4 AM CLINIC MD ASSOCIATE 09/20/2024 10:57 AM CLINIC MD ASSOCIATE us Flo Villagran MD LAB BLOOD ORDERABLES Final R esult [facility] [address] Department [place] [address] * XR Chest 1 View (09/20/2024 9:17 AM CLINIC MD ASSOCIATE) Anatomical Region Laterality Modality Body, Chest N/A Computed Radiogr aphy 09/20/2024 10:0 9 AM CLINIC MD ASSOCIATE Impressions 09/20/2024 10:09 AM CLINIC MD ASSOCIATE Comparison to 09/17/2024. An endotracheal tube terminates approximately 2.5 cm above the jessenia. Endogastric tube coils in the peripyloric region. Bilateral airspace opacities, left greater than right, with mid to lower lung zone predominance has slightly improved. No pleural effusion or pneumothorax. Unchanged heart size. The Electronically signed by: Gibran Astudillo M.D. Narrative 09/20/2024 10:09 AM CLINIC MD ASSOCIATE EXAMINATION: 1 view chest radiograph Procedure Note [...] The Electronically signed by: Gibran Astudillo M.D. Flo Villagran MD IMG XR PROCEDURES Final Resu lt * POCT glucose (09/20/2024 7:20 AM CLINIC MD ASSOCIATE) [facility] Glucose, POC 159 70 - 199 mg/dL Comment: For Glucose values <35 mg/dl when Hematocrit is >60 mg/dl,the test may not accurately detect significant hypoglycemia,and testing in the Laboratory should be considered if clinically indicated. Blood 09/20/2024 7:20 AM CLINIC MD ASSOCIATE 09/20/2024 7:20 AM CLINIC MD ASSOCIATE Flo Villagran MD LAB POCT ORDERABLES - DEVICE Final Result Performing Organization Address [facility] Co de Phone Number [facility] [address] [place] [address] * POCT glucose (09/20/2024 3:37 AM CLINIC MD ASSOCIATE) [facility] Glucose, POC 195 70 - 199 mg/dL Comment: For Glucose values <35 mg/dl when Hematocrit is >60 mg/dl,the test may not accurately detect significant hypoglycemia,and testing in the Laboratory should be considered if clinically indicated. Blood 09/20/2024 3:37 AM CLINIC MD ASSOCIATE 09/20/2024 3:37 AM CLINIC MD ASSOCIATE Flo Villagran MD LAB POCT ORDERABLES - DEVICE Final Result Performing Organization Address [facility] Co de Phone Number [facility] [address] [place], [place] [id number] * (ABNORMAL) eGFR (09/20/2024 12:27 AM CLINIC MD ASSOCIATE) [facility] eGFR 43(L) >=60 mL/min/1. 73 m2 [...] reviewed 2021. Blood 09/20/2024 12:2 7 AM CLINIC MD ASSOCIATE 09/20/2024 12:27 AM CLINIC MD ASSOCIATE us Elida Vigil DO LAB BLOOD ORDERABLES F inal Result [facility] [address] Department [place] [address] * (ABNORMAL) Differential, auto (09/20/2024 12:27 AM CLINIC MD ASSOCIATE) Neutrophil abs 8.9(H) 1.5 - 6.5 K/cumm Imm gran abs 0.5(H) 0.0 - 0.1 K/cumm [facility] Lymphocyte abs 0.9 0.8 - 3.3 K/cumm [facility] Monocyte abs 0.7 0.2 - 0.8 K/cumm [facility] Eosinophil abs 0.2 0.0 - 0.5 K/cumm [facility] Basophil abs 0.0 0.0 - 0.1 K/cumm [facility] Neutrophil pct 79.8 % [facility] Comment: Interpretive Data Percent cell count reference ranges are not reported, since discordance with absolute values may lead to misinterpretation of CBC data. Current Interpretive Data was last revised on 2017. Imm gran pct 4.5 % [facility] Comment: Interpretive Data Percent cell count reference ranges are not reported, since discordance with absolute values may lead to misinterpretation of CBC data. Current Interpretive Data was last revised on 2017. Lymphocyte pct 7.8 % [facility] Comment: Interpretive Data Percent cell count reference ranges are not reported, since discordance with absolute values may lead to misinterpretation of CBC data. Current Interpretive Data was last revised on 2017. Monocyte pct 6.3 % [facility] Comment: Interpretive Data Percent cell count reference ranges are not reported, since discordance with absolute values may lead to misinterpretation of CBC data. Current Interpretive Data was last revised on 2017. Eosinophil pct 1.4 % [facility] Comment: Interpretive Data Percent cell count reference ranges are not reported, since discordance with absolute values may lead to misinterpretation of CBC data. Current Interpretive Data was last revised on 2017. Basophil pct 0.2 % [facility] Comment: Interpretive Data Percent cell count reference ranges are not reported, since discordance with absolute values may lead to misinterpretation of CBC data. Current Interpretive Data was last revised on 2017. Blood 09/20/2024 12:2 7 AM CLINIC MD ASSOCIATE 09/20/2024 12:27 AM CLINIC MD ASSOCIATE us Elida Vigil DO LAB BLOOD ORDERABLES F inal Result [facility] [address] Department [place] [address] * (ABNORMAL) CBC with auto differential (09/20/2024 12:27 AM CLINIC MD ASSOCIATE) WBC 11.2(H) 3.8 - 9.9 K/cumm Hgb 7.6(L) 11.9 - 15.5 g/dL [facility] Hct 24.5(L) 35.6 - 45.5 % [facility] Plt 190 150 - 400 K/cumm [facility] MPV 13.0(H) 9.1 - 12.3 fL [facility] RBC 2.67(L) 3.90 - 5.20 M/cumm [facility] MCV 91.8 81.3 - 96.4 fL [facility] MCH 28.5 27.1 - 33.3 pg [facility] MCHC 31.0(L) 32.3 - 35.7 g/dL [facility] RDW CV 15.2(H) 11.1 - 14.9 % [facility] RDW SD 50.5(H) 35.7 - 48.1 fL [facility] NRBC abs 0.00 0.00 - 0.01 K/cumm [facility] Blood 09/20/2024 12:2 7 AM CLINIC MD ASSOCIATE 09/20/2024 12:27 AM CLINIC MD ASSOCIATE us Elida Vigil DO LAB BLOOD ORDERABLES F inal Result [facility] [address] Department [place] [address] * (ABNORMAL) Comprehensive metabolic panel (09/20/2024 12:27 AM CLINIC MD ASSOCIATE) Sodium 147(H) 135 - 145 mmol/L Potassium, pl 3.3 3.3 - 4.9 mmol/L [facility] Chloride 117(H) 97 - 110 mmol/L [facility] CO2 18(L) 22 - 32 mmol/L [facility] Anion gap 12 2 - 15 mmol/L [facility] BUN 40(H) 6 - 25 mg/dL [facility] Creatinine 1.48(H) 0.60 - 1.10 mg/dL [facility] Glucose 221(H) 70 - 199 mg/dL [facility] Comment: Interpretive Data Fasting glucose >/= [...] 2022. Calcium 7.5(L) 8.5 - 10.3 mg/dL [facility] Bilirubin, total 0.2 0.1 - 1.2 mg/dL [facility] Protein, pl 5.6(L) 6.5 - 8.5 g/dL [facility] Albumin 2.1(L) 3.5 - 5.0 g/dL [facility] Alk phos 134(H) 40 - 130 Units/L [facility] ALT 14 7 - 45 Units/L [facility] AST 27 10 - 45 Units/L [facility] Blood 09/20/2024 12:2 7 AM CLINIC MD ASSOCIATE 09/20/2024 12:27 AM CLINIC MD ASSOCIATE Elida Vigil DO LAB BLOOD ORDERABLES F inal Result Performing Organization Address [facility]/ZIP Co de Phone Number [facility] [address] [place] [address] * (ABNORMAL) POCT glucose (09/19/2024 11:00 PM CLINIC MD ASSOCIATE) Glucose, POC 217(H) 70 - 199 mg/dL Comment: For Glucose values <35 mg/dl when Hematocrit is >60 mg/dl,the test may not accurately detect significant hypoglycemia,and testing in the Laboratory should be considered if clinically indicated. Blood 09/19/2024 11:0 0 PM CLINIC MD ASSOCIATE 09/19/2024 11:00 PM CLINIC MD ASSOCIATE us Flo Villagran MD LAB POCT ORDERABLES - DEVICE Final Result [facility] [address] [place] [address] * POCT glucose (09/19/2024 7:52 PM CLINIC MD ASSOCIATE) Glucose, POC 196 70 - 199 mg/dL Comment: For Glucose values <35 mg/dl when Hematocrit is >60 mg/dl,the test may not accurately detect significant hypoglycemia,and testing in the Laboratory should be considered if clinically indicated. Blood 09/19/2024 7:52 PM CLINIC MD ASSOCIATE 09/19/2024 7:52 PM CLINIC MD ASSOCIATE Flo Villagran MD LAB POCT ORDERABLES - DEVICE Final Result Performing Organization Address [facility] de Phone Number [facility] [address] Department [place] [address] * POCT glucose (09/19/2024 4:55 PM CLINIC MD ASSOCIATE) Glucose, POC 179 70 - 199 mg/dL Comment: For Glucose values <35 mg/dl when Hematocrit is >60 mg/dl,the test may not accurately detect significant hypoglycemia,and testing in the Laboratory should be considered if clinically indicated. Blood 09/19/2024 4:55 PM CLINIC MD ASSOCIATE 09/19/2024 4:55 PM CLINIC MD ASSOCIATE Flo Villagran MD LAB POCT ORDERABLES - DEVICE Final Result Performing Organization Address [facility] de Phone Number [facility] [address] [place] [address] * (ABNORMAL) POCT glucose (09/19/2024 12:31 PM CLINIC MD ASSOCIATE) [facility] Signature Glucose, POC 260(H) 70 - 199 mg/dL Comment: For Glucose values <35 mg/dl when Hematocrit is >60 mg/dl,the test may not accurately detect significant hypoglycemia,and testing in the Laboratory should be considered if clinically indicated. Blood 09/19/2024 12:3 1 PM CLINIC MD ASSOCIATE 09/19/2024 12:31 PM CLINIC MD ASSOCIATE Flo Villagran MD LAB POCT ORDERABLES - DEVICE Final Result Performing Organization Address [facility] de Phone Number [facility] [address] [place] [address] * Potassium (09/19/2024 10:04 AM CLINIC MD ASSOCIATE) [facility] Potassium, pl 3.4 3.3 - 4.9 mmol/L Blood 09/19/2024 10:0 4 AM CLINIC MD ASSOCIATE 09/19/2024 10:12 AM CLINIC MD ASSOCIATE us Elida Vigil DO LAB BLOOD ORDERABLES F inal Result [facility] [address] Department [place] [address] * EEG (09/19/2024 8:50 AM CLINIC MD ASSOCIATE) Anatomical Region Laterality Modality EEG Narrative 09/19/2024 1:18 PM CLINIC MD ASSOCIATE REPORT OF ELECTROENCEPHALOGRAM DATE OF STUDY: 09/19/24 Brooke Marshall 1975 REASON FOR STUDY: Confusional state BRIEF HISTORY: Brooke Marshall is a 48 y.o. year old female currently in the ICU, still on ventilator. Admitted with DKA and influenza. Has been witnessed to have diminished mental status. DESCRIPTION: This is a routine 18-channel EEG. The underlying background rhythm consists of a [id number] voltage 5-7 Hz theta rhythm which remains [...] * (ABNORMAL) POCT glucose (09/19/2024 7:53 AM CLINIC MD ASSOCIATE) [facility] Glucose, POC 214(H) 70 - 199 mg/dL Comment: For Glucose values <35 mg/dl when Hematocrit is >60 mg/dl,the test may not accurately detect significant hypoglycemia,and testing in the Laboratory should be considered if clinically indicated. Blood 09/19/2024 7:53 AM CLINIC MD ASSOCIATE 09/19/2024 7:53 AM CLINIC MD ASSOCIATE Elida Winsome [employer] DO LAB POCT ORDERABLES - DEVICE Final Result Performing Organization Address [facility] de Phone Number [facility] [address] Department [place], [place] [id number] * (ABNORMAL) POCT glucose (09/19/2024 3:58 AM CLINIC MD ASSOCIATE) [facility] Glucose, POC 234(H) 70 - 199 mg/dL Comment: For Glucose values <35 mg/dl when Hematocrit is >60 mg/dl,the test may not accurately detect significant hypoglycemia,and testing in the Laboratory should be considered if clinically indicated. Blood 09/19/2024 3:58 AM CLINIC MD ASSOCIATE 09/19/2024 3:58 AM CLINIC MD ASSOCIATE Elida Vigil [facility] POCT ORDERABLES - DEVICE Final Result Performing Organization Address [facility] de Phone Number [facility] [address] [place] [address] * (ABNORMAL) eGFR (09/19/2024 1:46 AM CLINIC MD ASSOCIATE) [facility] eGFR 36(L) >=60 mL/min/1. 73 m2 [...] last reviewed 2021. Blood 09/19/2024 1:46 AM CLINIC MD ASSOCIATE 09/19/2024 1:46 AM CLINIC MD ASSOCIATE us Elida Vigil DO LAB BLOOD ORDERABLES F inal Result [facility] [address] Department [place] [address] * (ABNORMAL) Differential, auto (09/19/2024 1:46 AM CLINIC MD ASSOCIATE) Neutrophil abs 6.7(H) 1.5 - 6.5 K/cumm Imm gran abs 0.5(H) 0.0 - 0.1 K/cumm [facility] Lymphocyte abs 0.7(L) 0.8 - 3.3 K/cumm [facility] Monocyte abs 1.1(H) 0.2 - 0.8 K/cumm [facility] Eosinophil abs 0.1 0.0 - 0.5 K/cumm [facility] Basophil abs 0.0 0.0 - 0.1 K/cumm [facility] Neutrophil pct 72.5 % [facility] Comment: Interpretive Data Percent cell count reference ranges are not reported, since discordance with absolute values may lead to misinterpretation of CBC data. Current Interpretive Data was last revised on 2017. Imm gran pct 5.8 % [facility] Comment: Interpretive Data Percent cell count reference ranges are not reported, since discordance with absolute values may lead to misinterpretation of CBC data. Current Interpretive Data was last revised on 2017. Lymphocyte pct 8.1 % [facility] Comment: Interpretive Data Percent cell count reference ranges are not reported, since discordance with absolute values may lead to misinterpretation of CBC data. Current Interpretive Data was last revised on 2017. Monocyte pct 12.3 % [facility] Comment: Interpretive Data Percent cell count reference ranges are not reported, since discordance with absolute values may lead to misinterpretation of CBC data. Current Interpretive Data was last revised on 2017. Eosinophil pct 1.2 % [facility] Comment: Interpretive Data Percent cell count reference ranges are not reported, since discordance with absolute values may lead to misinterpretation of CBC data. Current Interpretive Data was last revised on 2017. Basophil pct 0.1 % [facility] Comment: Interpretive Data Percent cell count reference ranges are not reported, since discordance with absolute values may lead to misinterpretation of CBC data. Current Interpretive Data was last revised on 2017. Blood 09/19/2024 1:46 AM CLINIC MD ASSOCIATE 09/19/2024 1:46 AM CLINIC MD ASSOCIATE us Elida Vigil DO LAB BLOOD ORDERABLES F inal Result [facility] [address] Department [place] [address] * (ABNORMAL) CBC with auto differential (09/19/2024 1:46 AM CLINIC MD ASSOCIATE) WBC 9.2 3.8 - 9.9 K/cumm Hgb 7.5(L) 11.9 - 15.5 g/dL [facility] Hct 23.7(L) 35.6 - 45.5 % [facility] Plt 150 150 - 400 K/cumm [facility] MPV 13.4(H) 9.1 - 12.3 fL [facility] RBC 2.61(L) 3.90 - 5.20 M/cumm [facility] MCV 90.8 81.3 - 96.4 fL [facility] MCH 28.7 27.1 - 33.3 pg [facility] MCHC 31.6(L) 32.3 - 35.7 g/dL [facility] RDW CV 14.9 11.1 - 14.9 % [facility] RDW SD 49.1(H) 35.7 - 48.1 fL [facility] NRBC abs 0.00 0.00 - 0.01 K/cumm [facility] Blood 09/19/2024 1:46 AM CLINIC MD ASSOCIATE 09/19/2024 1:46 AM CLINIC MD ASSOCIATE [email or web address] DO LAB BLOOD ORDERABLES E dited Result - Final Performing Organization Address [facility] Co de Phone Number [facility] [address] Department of [place], [place] [id number] * Manual Differential (09/19/2024 1:46 AM CLINIC MD ASSOCIATE) Pathologist [facility] Differential Auto RBC morphology Normal [facility] Morphology scrn See Comment [facility] Comment:PLT: Platelet morpho logy normal Blood 09/19/2024 1:46 AM CLINIC MD ASSOCIATE 09/19/2024 1:46 AM CLINIC MD ASSOCIATE [employer] Vigil DO LAB BLOOD ORDERABLES F inal Result Performing Organization Address [facility] de Phone Number [facility] [address] [facility] [place], [place] [id number] * Phosphorus (09/19/2024 1:46 AM CLINIC MD ASSOCIATE) Pathologist [facility] Phosphorus, pl 3.0 2.3 - 4.5 mg/dL Blood 09/19/2024 1:46 AM CLINIC MD ASSOCIATE 09/19/2024 1:46 AM CLINIC MD ASSOCIATE [employer] DO LAB BLOOD ORDERABLES F inal Result Performing Organization Address [facility] Co de Phone Number [facility] [address] [facility] [place] [address] * Magnesium (09/19/2024 1:46 AM CLINIC MD ASSOCIATE) Magnesium 2.3 1.4 - 2.5 mg/dL Blood 09/19/2024 1:46 AM CLINIC MD ASSOCIATE 09/19/2024 1:46 AM CLINIC MD ASSOCIATE us Elida Schumacher [employer] DO LAB BLOOD ORDERABLES F inal Result [facility] [address] Department [place] [address] * (ABNORMAL) Comprehensive metabolic panel (09/19/2024 1:46 AM CLINIC MD ASSOCIATE) Sodium 145 135 - 145 mmol/L Potassium, pl 2.6(C) 3.3 - 4.9 mmol/L [facility] Comment:Critical result call ed to and read back by Amber Gaines (RN) on 09/19/24 @ 0210 to [id number] Chloride 113(H) 97 - 110 mmol/L [facility] CO2 20(L) 22 - 32 mmol/L [facility] Anion gap 12 2 - 15 mmol/L [facility] BUN 41(H) 6 - 25 mg/dL [facility] Creatinine 1.73(H) 0.60 - 1.10 mg/dL [facility] Glucose 249(H) 70 - 199 mg/dL [facility] Comment: Interpretive Data Fasting glucose >/= [...] 2022. Calcium 7.5(L) 8.5 - 10.3 mg/dL [facility] Bilirubin, total 0.3 0.1 - 1.2 mg/dL [facility] Protein, pl 5.6(L) 6.5 - 8.5 g/dL [facility] Albumin 2.0(L) 3.5 - 5.0 g/dL [facility] Alk phos 127 40 - 130 Units/L [facility] ALT 12 7 - 45 Units/L [facility] AST 24 10 - 45 Units/L [facility] Blood 09/19/2024 1:46 AM CLINIC MD ASSOCIATE 09/19/2024 1:46 AM CLINIC MD ASSOCIATE Elida Verahenok [employer] LAB BLOOD ORDERABLES F inal Result Performing Organization Address [facility] Co de Phone Number [facility] [address] [facility] [place] [address] * Ammonia (09/19/2024 1:07 AM CLINIC MD ASSOCIATE) Pathologist [facility] Ammonia 40 <=50 mcmol/L Blood 09/19/2024 1:07 AM CLINIC MD ASSOCIATE 09/19/2024 1:12 AM CLINIC MD ASSOCIATE Elidamartha Schumacher [employer] LAB BLOOD ORDERABLES F inal Result Performing Organization Address [facility] de Phone Number [facility] [address] [facility] [place] [address] * (ABNORMAL) POCT glucose (09/18/2024 11:58 PM CLINIC MD ASSOCIATE) Glucose, POC 231(H) 70 - 199 mg/dL Comment: For Glucose values <35 mg/dl when Hematocrit is >60 mg/dl,the test may not accurately detect significant hypoglycemia,and testing in the Laboratory should be considered if clinically indicated. Blood 09/18/2024 11:5 8 PM CLINIC MD ASSOCIATE 09/18/2024 11:58 PM CLINIC MD ASSOCIATE Elidaflorence Krafte [place] [employer] LAB POCT ORDERABLES - DEVICE Final Result Performing Organization Address [facility] Co de Phone Number [facility] [address] [place] [address] * (ABNORMAL) POCT glucose (09/18/2024 9:10 PM CLINIC MD ASSOCIATE) Glucose, POC 261(H) 70 - 199 mg/dL Comment: For Glucose values <35 mg/dl when Hematocrit is >60 mg/dl,the test may not accurately detect significant hypoglycemia,and testing in the Laboratory should be considered if clinically indicated. Blood 09/18/2024 9:10 PM CLINIC MD ASSOCIATE 09/18/2024 9:10 PM CLINIC MD ASSOCIATE Elida Vigil DO LAB POCT ORDERABLES - DEVICE Final Result Performing Organization Address [facility]/[place] [facility] de Phone Number [facility] [address] [facility] [place] [address] * (ABNORMAL) POCT glucose (09/18/2024 4:18 PM CLINIC MD ASSOCIATE) Glucose, POC 229(H) 70 - 199 mg/dL Comment: For Glucose values <35 mg/dl when Hematocrit is >60 mg/dl,the test may not accurately detect significant hypoglycemia,and testing in the Laboratory should be considered if clinically indicated. Blood 09/18/2024 4:18 PM CLINIC MD ASSOCIATE 09/18/2024 4:18 PM CLINIC MD ASSOCIATE Result [facility] Elida Vigil [facility] POCT ORDERABLES - DEVICE Final Result Performing Organization Address [facility] de Phone Number [facility] [address] [facility] [place] [address] * (ABNORMAL) POCT glucose (09/18/2024 12:07 PM CLINIC MD ASSOCIATE) Glucose, POC 260(H) 70 - 199 mg/dL Comment: For Glucose values <35 mg/dl when Hematocrit is >60 mg/dl,the test may not accurately detect significant hypoglycemia,and testing in the Laboratory should be considered if clinically indicated. Blood 09/18/2024 12:0 7 PM CLINIC MD ASSOCIATE 09/18/2024 12:07 PM CLINIC MD ASSOCIATE Elida Vigil DO LAB POCT ORDERABLES - DEVICE Final Result [facility] [address] [facility] [place] [address] * (ABNORMAL) DIC Platelet (09/18/2024 8:13 AM CLINIC MD ASSOCIATE) Pathologist [facility] Plt 147(L) 150 - 400 K/cumm Blood 09/18/2024 8:13 AM CLINIC MD ASSOCIATE 09/18/2024 8:25 AM CLINIC MD ASSOCIATE Elida Vigil DO LAB BLOOD ORDERABLES E dited Result - Final Performing Organization Address City/[facility]/ZIP Co de Phone Number [facility] [address] Department [place] [address] * (ABNORMAL) Differential, auto (09/18/2024 8:13 AM CLINIC MD ASSOCIATE) Pathologist [facility] Neutrophil abs 7.0(H) 1.5 - 6.5 K/cumm Imm gran abs 0.6(H) 0.0 - 0.1 K/cumm [facility] Lymphocyte abs 0.7(L) 0.8 - 3.3 K/cumm [facility] Monocyte abs 1.4(H) 0.2 - 0.8 K/cumm [facility] Eosinophil abs 0.1 0.0 - 0.5 K/cumm [facility] Basophil abs 0.1 0.0 - 0.1 K/cumm [facility] Neutrophil pct 71.8 % [facility] Comment: Interpretive Data Percent cell count reference ranges are not reported, since discordance with absolute values may lead to misinterpretation of CBC data. Current Interpretive Data was last revised on 2017. Imm gran pct 6.0 % [facility] Comment: Interpretive Data Percent cell count reference ranges are not reported, since discordance with absolute values may lead to misinterpretation of CBC data. Current Interpretive Data was last revised on 2017. Lymphocyte pct 6.6 % [facility] Comment: Interpretive Data Percent cell count reference ranges are not reported, since discordance with absolute values may lead to misinterpretation of CBC data. Current Interpretive Data was last revised on 2017. Monocyte pct 14.1 % [facility] Comment: Interpretive Data Percent cell count reference ranges are not reported, since discordance with absolute values may lead to misinterpretation of CBC data. Current Interpretive Data was last revised on 2017. Eosinophil pct 0.9 % [facility] Comment: Interpretive Data Percent cell count reference ranges are not reported, since discordance with absolute values may lead to misinterpretation of CBC data. Current Interpretive Data was last revised on 2017. Basophil pct 0.6 % [facility] Comment: Interpretive Data Percent cell count reference ranges are not reported, since discordance with absolute values may lead to misinterpretation of CBC data. Current Interpretive Data was last revised on 2017. Blood 09/18/2024 8:13 AM CLINIC MD ASSOCIATE 09/18/2024 8:13 AM CLINIC MD ASSOCIATE [employer] DO LAB BLOOD ORDERABLES F inal Result Performing Organization Address [facility]/ZIP Co de Phone Number [facility] [address] [place] [address] * DIC Schistocytes (09/18/2024 8:13 AM CLINIC MD ASSOCIATE) Schistocytes None Seen None Seen Blood 09/18/2024 8:13 AM CLINIC MD ASSOCIATE 09/18/2024 8:25 AM CLINIC MD ASSOCIATE [employer] DO LAB BLOOD ORDERABLES F inal Result Performing Organization Address City/[facility]/ZIP Co de Phone Number [facility] [address] [place] [address] * (ABNORMAL) CBC with auto differential (09/18/2024 8:13 AM CLINIC MD ASSOCIATE) WBC 9.8 3.8 - 9.9 K/cumm Hgb 8.9(L) 11.9 - 15.5 g/dL [facility] Hct 28.7(L) 35.6 - 45.5 % [facility] Plt 147(L) 150 - 400 K/cumm [facility] MPV 13.2(H) 9.1 - 12.3 fL [facility] RBC 3.06(L) 3.90 - 5.20 M/cumm [facility] MCV 93.8 81.3 - 96.4 fL [facility] MCH 29.1 27.1 - 33.3 pg [facility] MCHC 31.0(L) 32.3 - 35.7 g/dL [facility] RDW CV 14.7 11.1 - 14.9 % [facility] RDW SD 50.8(H) 35.7 - 48.1 fL [facility] NRBC abs 0.03(H) 0.00 - 0.01 K/cumm [facility] Blood 09/18/2024 8:13 AM CLINIC MD ASSOCIATE 09/18/2024 8:20 AM CLINIC MD ASSOCIATE Elida Vigil DO LAB BLOOD ORDERABLES E dited Result - Final Performing Organization Address [facility]/ZIP Co de Phone Number [facility] [address] [place] [address] * (ABNORMAL) POCT glucose (09/18/2024 7:57 AM CLINIC MD ASSOCIATE) [facility] Glucose, POC 271(H) 70 - 199 mg/dL Comment: For Glucose values <35 mg/dl when Hematocrit is >60 mg/dl,the test may not accurately detect significant hypoglycemia,and testing in the Laboratory should be considered if clinically indicated. Blood 09/18/2024 7:57 AM CLINIC MD ASSOCIATE 09/18/2024 7:57 AM CLINIC MD ASSOCIATE Elida Vigil DO LAB POCT ORDERABLES - DEVICE Final Result Performing Organization Address City/[facility]/ZIP Co de Phone Number [facility] [address] Department [employer] [place], [place] [id number] * (ABNORMAL) POCT glucose (09/18/2024 7:56 AM CLINIC MD ASSOCIATE) Glucose, POC 240(H) 70 - 199 mg/dL Comment: For Glucose values <35 mg/dl when Hematocrit is >60 mg/dl,the test may not accurately detect significant hypoglycemia,and testing in the Laboratory should be considered if clinically indicated. Blood 09/18/2024 7:56 AM CLINIC MD ASSOCIATE 09/18/2024 7:56 AM CLINIC MD ASSOCIATE us Elida Vigil DO LAB POCT ORDERABLES - DEVICE Final Result [facility] [address] Department [place] [address] * (ABNORMAL) eGFR (09/18/2024 7:26 AM CLINIC MD ASSOCIATE) eGFR 40(L) >=60 mL/min/1. 73 m2 Comment: [...] last reviewed 2021. Blood 09/18/2024 7:26 AM CLINIC MD ASSOCIATE 09/18/2024 7:47 AM CLINIC MD ASSOCIATE Elida Vigil DO LAB BLOOD ORDERABLES F inal Result [facility] [address] [facility] [place] [address] * Phosphorus (09/18/2024 7:26 AM CLINIC MD ASSOCIATE) [facility] Phosphorus, pl 2.9 2.3 - 4.5 mg/dL Comment:Reviewed - dialysis patient Blood 09/18/2024 7:26 AM CLINIC MD ASSOCIATE 09/18/2024 7:47 AM CLINIC MD ASSOCIATE Elida Vigil DO LAB BLOOD ORDERABLES F inal Result Performing Organization Address [facility]/ZIP Co de Phone Number [facility] [address] [facility] [place] [address] * Magnesium (09/18/2024 7:26 AM CLINIC MD ASSOCIATE) [facility] Magnesium 2.3 1.4 - 2.5 mg/dL Blood 09/18/2024 7:26 AM CLINIC MD ASSOCIATE 09/18/2024 7:47 AM CLINIC MD ASSOCIATE Elida Vigil DO LAB BLOOD ORDERABLES F inal Result Performing Organization Address [facility]/ZIP Co de Phone Number [facility] [address] [place] [address] * Vitamin B12 (09/18/2024 7:26 AM CLINIC MD ASSOCIATE) [facility] Vitamin B12 878 230 - 1,250 pg/mL Blood 09/18/2024 7:26 AM CLINIC MD ASSOCIATE 09/18/2024 7:47 AM CLINIC MD ASSOCIATE Elidamartha Vigil DO LAB BLOOD ORDERABLES F inal Result [facility] [address] [place] [address] * (ABNORMAL) Comprehensive metabolic panel (09/18/2024 7:26 AM CLINIC MD ASSOCIATE) [facility] Sodium 143 135 - 145 mmol/L Potassium, pl 3.4 3.3 - 4.9 mmol/L [facility] Comment:Hemolyzed; potassium value may be falsely elevated by as much as 0.3 - 0.5 mmol/L. Suggest redraw and reanalysis Chloride 111(H) 97 - 110 mmol/L [facility] CO2 19(L) 22 - 32 mmol/L [facility] Anion gap 13 2 - 15 mmol/L [facility] BUN 39(H) 6 - 25 mg/dL [facility] Creatinine 1.57(H) 0.60 - 1.10 mg/dL [facility] Glucose 227(H) 70 - 199 mg/dL [facility] Comment: Interpretive Data Fasting glucose >/= [...] 2022. Calcium 7.8(L) 8.5 - 10.3 mg/dL [facility] Bilirubin, total 0.4 0.1 - 1.2 mg/dL [facility] Protein, pl 5.9(L) 6.5 - 8.5 g/dL [facility] Albumin 2.2(L) 3.5 - 5.0 g/dL [facility] Alk phos 141(H) 40 - 130 Units/L [facility] ALT 18 7 - 45 Units/L [facility] AST 31 10 - 45 Units/L [facility] Comment:Slightly Hemolyzed S pecimen Blood 09/18/2024 7:26 AM CLINIC MD ASSOCIATE 09/18/2024 7:47 AM CLINIC MD ASSOCIATE us Elida Vigil DO LAB BLOOD ORDERABLES F inal Result [facility] [address] [facility] [place] [address] * (ABNORMAL) POCT glucose (09/18/2024 4:28 AM CLINIC MD ASSOCIATE) Glucose, POC 243(H) 70 - 199 mg/dL Comment: For Glucose values <35 mg/dl when Hematocrit is >60 mg/dl,the test may not accurately detect significant hypoglycemia,and testing in the Laboratory should be considered if clinically indicated. Blood 09/18/2024 4:28 AM CLINIC MD ASSOCIATE 09/18/2024 4:28 AM CLINIC MD ASSOCIATE Elida Vigil DO LAB POCT ORDERABLES - DEVICE Final Result Performing Organization Address [facility] de Phone Number [facility] [address] [facility] [place] [address] * (ABNORMAL) DIC Coagulation (09/18/2024 4:20 AM CLINIC MD ASSOCIATE) PT DIC 10.5 10.3 - 13.7 sec INR DIC 0.97 0.90 - 1.20 [facility] PTT DIC 18(L) 28 - 38 sec [facility] Comment: Specimen integrity okay Interpretive Data Heparin therapeutic range: 66.0 - 100.0 seconds. Range based on correlation with therapeutic heparin activity range of 0.3 - 0.7 Units/mL. Current interpretive data was last revised on 2023. D-Dimer 13,588(H) <=499 ng/mL FEU [facility] Comment: Specimen not clotted and filled [...] 68, VTE cut-off 680 ng/ml FEU. References; Schrubina MEDRANO et al. Brit Med J. 2013;346:f2492. Shabana RIVERA et al. Annals Int Med. 2015;163:701-11. Current interpretive data was last revised on 2019. Fibrinogen 775(H) 170 - 400 mg/dL [facility] Blood 09/18/2024 4:20 AM CLINIC MD ASSOCIATE 09/18/2024 4:21 AM CLINIC MD ASSOCIATE Elida Vigil DO LAB BLOOD ORDERABLES F inal Result Performing Organization Address [facility] Co de Phone Number [facility] [address] [place] [address] * (ABNORMAL) POCT glucose (09/17/2024 11:57 PM CLINIC MD ASSOCIATE) Glucose, POC 263(H) 70 - 199 mg/dL Comment: For Glucose values <35 mg/dl when Hematocrit is >60 mg/dl,the test may not accurately detect significant hypoglycemia,and testing in the Laboratory should be considered if clinically indicated. Blood 09/17/2024 11:5 7 PM CLINIC MD ASSOCIATE 09/17/2024 11:57 PM CLINIC MD ASSOCIATE Elida Vigil DO LAB POCT ORDERABLES - DEVICE Final Result Performing Organization Address [facility] Co de Phone Number [facility] [address] [place] [address] * (ABNORMAL) POCT glucose (09/17/2024 8:02 PM CLINIC MD ASSOCIATE) Glucose, POC 291(H) 70 - 199 mg/dL Comment: For Glucose values <35 mg/dl when Hematocrit is >60 mg/dl,the test may not accurately detect significant hypoglycemia,and testing in the Laboratory should be considered if clinically indicated. Blood 09/17/2024 8:02 PM CLINIC MD ASSOCIATE 09/17/2024 8:02 PM CLINIC MD ASSOCIATE Elida Vigil DO LAB POCT ORDERABLES - DEVICE Final Result Performing Organization Address [facility] Co de Phone Number [facility] [address] [place] [address] * (ABNORMAL) POCT glucose (09/17/2024 4:21 PM CLINIC MD ASSOCIATE) Glucose, POC 283(H) 70 - 199 mg/dL Comment: For Glucose values <35 mg/dl when Hematocrit is >60 mg/dl,the test may not accurately detect significant hypoglycemia,and testing in the Laboratory should be considered if clinically indicated. Blood 09/17/2024 4:21 PM CLINIC MD ASSOCIATE 09/17/2024 4:21 PM CLINIC MD ASSOCIATE Elida Gusmanrice Ch[place] DO LAB POCT ORDERABLES - DEVICE Final Result Performing Organization Address [facility] de Phone Number [facility] [address] [place] [address] * (ABNORMAL) eGFR (09/17/2024 2:52 PM CLINIC MD ASSOCIATE) Pathologist [facility] eGFR 34(L) >=60 mL/min/1. 73 m2 Comment: [...] last reviewed 2021. Blood 09/17/2024 2:52 PM CLINIC MD ASSOCIATE 09/17/2024 2:57 PM CLINIC MD ASSOCIATE Elida Schumacher Musa DO LAB BLOOD ORDERABLES F inal Result Performing Organization Address City/[facility]/ZIP Co de Phone Number [facility] [address] Department [place] [address] * (ABNORMAL) Renal function panel (09/17/2024 2:52 PM CLINIC MD ASSOCIATE) Sodium 143 135 - 145 mmol/L Potassium, pl 3.6 3.3 - 4.9 mmol/L [facility] Chloride 110 97 - 110 mmol/L [facility] CO2 21(L) 22 - 32 mmol/L [facility] Anion gap 12 2 - 15 mmol/L [facility] BUN 41(H) 6 - 25 mg/dL [facility] Creatinine 1.82(H) 0.60 - 1.10 mg/dL [facility] Glucose 290(H) 70 - 199 mg/dL [facility] Comment: Interpretive Data Fasting glucose >/= [...] 2022. Calcium 7.9(L) 8.5 - 10.3 mg/dL [facility] Phosphorus, pl 5.0(H) 2.3 - 4.5 mg/dL [facility] Comment:Reviewed Albumin 2.4(L) 3.5 - 5.0 g/dL [facility] Blood 09/17/2024 2:52 PM CLINIC MD ASSOCIATE 09/17/2024 2:57 PM CLINIC MD ASSOCIATE Elida Gusmanshaun Vigil DO LAB BLOOD ORDERABLES F inal Result [facility] [address] [facility] [place] [address] * (ABNORMAL) POCT glucose (09/17/2024 12:23 PM CLINIC MD ASSOCIATE) Glucose, POC 278(H) 70 - 199 mg/dL Comment: For Glucose values <35 mg/dl when Hematocrit is >60 mg/dl,the test may not accurately detect significant hypoglycemia,and testing in the Laboratory should be considered if clinically indicated. Blood 09/17/2024 12:2 3 PM CLINIC MD ASSOCIATE 09/17/2024 12:23 PM CLINIC MD ASSOCIATE Elida Vigil DO LAB POCT ORDERABLES - DEVICE Final Result Performing Organization Address [facility] de Phone Number [facility] [address] [facility] [place] [address] * (ABNORMAL) POCT glucose (09/17/2024 7:09 AM CLINIC MD ASSOCIATE) Glucose, POC 294(H) 70 - 199 mg/dL Comment: For Glucose values <35 mg/dl when Hematocrit is >60 mg/dl,the test may not accurately detect significant hypoglycemia,and testing in the Laboratory should be considered if clinically indicated. Blood 09/17/2024 7:09 AM CLINIC MD ASSOCIATE 09/17/2024 7:09 AM CLINIC MD ASSOCIATE Elida iVgil DO LAB POCT ORDERABLES - DEVICE Final Result Performing Organization Address [facility] Co de Phone Number [facility] [address] [facility] [place] [address] * (ABNORMAL) POCT glucose (09/17/2024 4:42 AM CLINIC MD ASSOCIATE) Glucose, POC 300(H) 70 - 199 mg/dL Comment: For Glucose values <35 mg/dl when Hematocrit is >60 mg/dl,the test may not accurately detect significant hypoglycemia,and testing in the Laboratory should be considered if clinically indicated. Blood 09/17/2024 4:42 AM CLINIC MD ASSOCIATE 09/17/2024 4:42 AM CLINIC MD ASSOCIATE Elida Vigil DO LAB POCT ORDERABLES - DEVICE Final Result Performing Organization Address [facility] Co de Phone Number [facility] [address] Department [employer] [place], [place] [id number] * (ABNORMAL) eGFR (09/17/2024 4:10 AM CLINIC MD ASSOCIATE) eGFR 36(L) >=60 mL/min/1. 73 m2 Comment: [...] last reviewed 2021. Blood 09/17/2024 4:10 AM CLINIC MD ASSOCIATE 09/17/2024 4:10 AM CLINIC MD ASSOCIATE Elida Vigil DO LAB BLOOD ORDERABLES F inal Result Performing Organization Address [facility]/ZIP Co de Phone Number [facility] [address] Department of [place], [place] [id number] * Thyroid Function [place] (09/17/2024 4:10 AM CLINIC MD ASSOCIATE) TSH 1.79 0.30 - 4.20 mcIUnit/mL Blood 09/17/2024 4:10 AM CLINIC MD ASSOCIATE 09/17/2024 4:10 AM CLINIC MD ASSOCIATE Elida Vigil DO LAB BLOOD ORDERABLES F inal Result Performing Organization Address [facility] Co de Phone Number [facility] [address] [employer] [place], [place] [id number] * (ABNORMAL) CBC with auto differential (09/17/2024 4:10 AM CLINIC MD ASSOCIATE) [facility] WBC 7.1 3.8 - 9.9 K/cumm Hgb 8.7(L) 11.9 - 15.5 g/dL [facility] Hct 27.4(L) 35.6 - 45.5 % [facility] Plt 93(L) 150 - 400 K/cumm [facility] MPV 12.8(H) 9.1 - 12.3 fL [facility] RBC 3.03(L) 3.90 - 5.20 M/cumm [facility] MCV 90.4 81.3 - 96.4 fL [facility] MCH 28.7 27.1 - 33.3 pg [facility] MCHC 31.8(L) 32.3 - 35.7 g/dL [facility] RDW CV 14.6 11.1 - 14.9 % [facility] RDW SD 48.9(H) 35.7 - 48.1 fL [facility] NRBC abs 0.00 0.00 - 0.01 K/cumm [facility] Blood 09/17/2024 4:10 AM CLINIC MD ASSOCIATE 09/17/2024 4:10 AM CLINIC MD ASSOCIATE Elida Vigil DO LAB BLOOD ORDERABLES F inal Result [facility] [address] [facility] [place], [place] [id number] * (ABNORMAL) Manual Differential (09/17/2024 4:10 AM CLINIC MD ASSOCIATE) [facility] Differential Manual Cells Counted 120 [facility] Neutrophil abs 5.9 1.5 - 6.5 K/cumm [facility] Imm gran abs 0.2(H) 0.0 - 0.1 K/cumm [facility] Lymphocyte abs 0.6(L) 0.8 - 3.3 K/cumm [facility] Monocyte abs 0.4 0.2 - 0.8 K/cumm [facility] Eosinophil abs 0.1 0.0 - 0.5 K/cumm [facility] Basophil abs 0.1 0.0 - 0.1 K/cumm [facility] Neutrophil pct 82.6 % [facility] Comment: Interpretive Data Percent cell count reference ranges are not reported, since discordance with absolute values may lead to misinterpretation of CBC data. Current Interpretive Data was last revised on 2017. Lymphocyte pct 8.3 % [facility] Comment: Interpretive Data Percent cell count reference ranges are not reported, since discordance with absolute values may lead to misinterpretation of CBC data. Current Interpretive Data was last revised on 2017. Monocyte pct 5.0 % [facility] Comment: Interpretive Data Percent cell count reference ranges are not reported, since discordance with absolute values may lead to misinterpretation of CBC data. Current Interpretive Data was last revised on 2017. Eosinophil pct 0.8 % [facility] Comment: Interpretive Data Percent cell count reference ranges are not reported, since discordance with absolute values may lead to misinterpretation of CBC data. Current Interpretive Data was last revised on 2017. Basophil pct 0.8 % [facility] Comment: Interpretive Data Percent cell count reference ranges are not reported, since discordance with absolute values may lead to misinterpretation of CBC data. Current Interpretive Data was last revised on 2017. Myelocyte pct 0.8(H) 0.0 - 0.0 % [facility] Promyelocyte pct 1.7(H) 0.0 - 0.0 % [facility] RBC morphology Present(A) [facility] Anisocytosis Slight(A) [facility] Morphology scrn See Comment [facility] Comment:PLT: Platelet morpho logy normal Blood 09/17/2024 4:10 AM CLINIC MD ASSOCIATE 09/17/2024 4:10 AM CLINIC MD ASSOCIATE Elida Vigil DO LAB BLOOD ORDERABLES F inal Result Performing Organization Address [facility] Co de Phone Number [facility] [address] [place] [address] * (ABNORMAL) Phosphorus (09/17/2024 4:10 AM CLINIC MD ASSOCIATE) Phosphorus, pl 2.2(L) 2.3 - 4.5 mg/dL Blood 09/17/2024 4:10 AM CLINIC MD ASSOCIATE 09/17/2024 4:10 AM CLINIC MD ASSOCIATE Elida Schumacher Musa DO LAB BLOOD ORDERABLES F inal Result Performing Organization Address [facility] de Phone Number [facility] [address] [place] [address] * Magnesium (09/17/2024 4:10 AM CLINIC MD ASSOCIATE) Magnesium 2.3 1.4 - 2.5 mg/dL Blood 09/17/2024 4:10 AM CLINIC MD ASSOCIATE 09/17/2024 4:10 AM CLINIC MD ASSOCIATE Elida Kraftjuvenal Vigil DO LAB BLOOD ORDERABLES F inal Result Performing Organization Address [facility] de Phone Number [facility] [address] [place] [address] * (ABNORMAL) Haptoglobin (09/17/2024 4:10 AM CLINIC MD ASSOCIATE) Haptoglobin 408(H) 30 - 200 mg/dL Blood 09/17/2024 4:10 AM CLINIC MD ASSOCIATE 09/17/2024 4:10 AM CLINIC MD ASSOCIATE Elida Vigil DO LAB BLOOD ORDERABLES F inal Result [facility] [address] [place] Department [place] [address] * (ABNORMAL) Comprehensive metabolic panel (09/17/2024 4:10 AM CLINIC MD ASSOCIATE) Sodium 143 135 - 145 mmol/L Potassium, pl 2.8(L) 3.3 - 4.9 mmol/L [facility] Chloride 109 97 - 110 mmol/L [facility] CO2 21(L) 22 - 32 mmol/L [facility] Anion gap 13 2 - 15 mmol/L [facility] BUN 43(H) 6 - 25 mg/dL [facility] Creatinine 1.71(H) 0.60 - 1.10 mg/dL [facility] Glucose 288(H) 70 - 199 mg/dL [facility] Comment: Interpretive Data Fasting glucose >/= [...] 2022. Calcium 7.9(L) 8.5 - 10.3 mg/dL [facility] Bilirubin, total 0.3 0.1 - 1.2 mg/dL [facility] Protein, pl 5.5(L) 6.5 - 8.5 g/dL [facility] Albumin 2.2(L) 3.5 - 5.0 g/dL [facility] Alk phos 115 40 - 130 Units/L [facility] ALT 18 7 - 45 Units/L [facility] AST 23 10 - 45 Units/L [facility] Blood 09/17/2024 4:10 AM CLINIC MD ASSOCIATE 09/17/2024 4:10 AM CLINIC MD ASSOCIATE us Elida Winsome Barks DO LAB BLOOD ORDERABLES F inal Result [facility] [address] Department [place] [address] * XR Chest 1 View (09/17/2024 2:59 AM CLINIC MD ASSOCIATE) Anatomical Region Laterality Modality Body, Chest N/A Computed Radiogr aphy 09/17/2024 7:00 AM CLINIC MD ASSOCIATE Impressions 09/17/2024 7:00 AM CLINIC MD ASSOCIATE Comparison chest radiograph 09/16/2024. Endotracheal tube terminates 4 cm above the jessenia. Gastric tube courses along the esophagus and terminates below the diaphragm outside the [id number]. Small lung volumes. Similar-appearing patchy airspace opacity in left lower lung which may represent a pneumonia. Right lung is clear. No pleural effusion or pneumothorax. Heart size and mediastinal contours are stable. Electronically signed by: Teja Angeles MD, PHD Narrative 09/17/2024 7:00 AM CLINIC MD ASSOCIATE EXAMINATION: XR CHEST 1 VIEW Procedure Note Teja Angeles MD PhD - 09/17/2024 EXAMINATION: XR CHEST 1 VIEW IMPRESSION: Comparison chest radiograph 09/16/2024. Endotracheal tube terminates 4 cm above the jessenia. Gastric tube courses along the esophagus and terminates below the diaphragm outside the [id number]. Small lung volumes. Similar-appearing patchy airspace opacity in left lower lung which may represent a pneumonia. Right lung is clear. No pleural effusion or pneumothorax. Heart size and mediastinal contours are stable. Electronically signed by: Teja Angeles MD, PHD us Elida Winsome Musa DO IMG XR PROCEDURES Salma l Result * (ABNORMAL) POCT glucose (09/16/2024 11:48 PM CLINIC MD ASSOCIATE) [facility] Glucose, POC 288(H) 70 - 199 mg/dL Comment: For Glucose values <35 mg/dl when Hematocrit is >60 mg/dl,the test may not accurately detect significant hypoglycemia,and testing in the Laboratory should be considered if clinically indicated. Blood 09/16/2024 11:4 8 PM CLINIC MD ASSOCIATE 09/16/2024 11:48 PM CLINIC MD ASSOCIATE Elida Vigil LAB POCT ORDERABLES - DEVICE Final Result Performing Organization Address [facility] Co de Phone Number [facility] [address] [place] [address] * (ABNORMAL) POCT glucose (09/16/2024 8:12 PM CLINIC MD ASSOCIATE) Glucose, POC 265(H) 70 - 199 mg/dL Comment: For Glucose values <35 mg/dl when Hematocrit is >60 mg/dl,the test may not accurately detect significant hypoglycemia,and testing in the Laboratory should be considered if clinically indicated. Blood 09/16/2024 8:12 PM CLINIC MD ASSOCIATE 09/16/2024 8:12 PM CLINIC MD ASSOCIATE Elida Vigil [facility] POCT ORDERABLES - DEVICE Final Result Performing Organization Address [facility] de Phone Number [facility] [address] [facility] [place] [address] * (ABNORMAL) POCT glucose (09/16/2024 4:04 PM CLINIC MD ASSOCIATE) Glucose, POC 310(H) 70 - 199 mg/dL Comment: For Glucose values <35 mg/dl when Hematocrit is >60 mg/dl,the test may not accurately detect significant hypoglycemia,and testing in the Laboratory should be considered if clinically indicated. Blood 09/16/2024 4:04 PM CLINIC MD ASSOCIATE 09/16/2024 4:04 PM CLINIC MD ASSOCIATE Elida Vigil LAB POCT ORDERABLES - DEVICE Final Result Performing Organization Address [facility] Co de Phone Number [facility] [address] [facility] [place] [address] * (ABNORMAL) POCT glucose (09/16/2024 12:27 PM CLINIC MD ASSOCIATE) [facility] Glucose, POC 271(H) 70 - 199 mg/dL Comment: For Glucose values <35 mg/dl when Hematocrit is >60 mg/dl,the test may not accurately detect significant hypoglycemia,and testing in the Laboratory should be considered if clinically indicated. Blood 09/16/2024 12:2 7 PM CLINIC MD ASSOCIATE 09/16/2024 12:27 PM CLINIC MD ASSOCIATE us Elida Vigil DO LAB POCT ORDERABLES - DEVICE Final Result [facility] [address] Department [place] [address] * US Vein Duplex Lower Extremity Bilateral Complete (09/16/2024 11:24 AM CLINIC MD ASSOCIATE) Anatomical Region Laterality Modality Vascular Bilateral Ultrasound 09/16/2024 3:48 PM CLINIC MD ASSOCIATE Impressions 09/16/2024 3:48 PM CLINIC MD ASSOCIATE 1. This study does not demonstrate evidence of deep vein thrombosis in the right lower extremity. None 2. This study does not demonstrate evidence of deep vein thrombosis in the left lower extremity. None 3. Note: Small isolated thrombi may be difficult to visualize, especially in the calf veins. Electronically signed by: Kwaku Tolentino M.D. Narrative 09/16/2024 3:48 PM CLINIC MD ASSOCIATE Lower Extremity Vein Duplex Bilateral DATE: 09/16/2024 [...] by: Kwaku Tolentino M.D. Flo Villagran MD IM US PROCEDURES Final Resu lt * [place] INSJ NON-TUNNELED CENTRAL VENOUS CATH AGE 5 YR/> (09/16/2024 8:53 AM CLINIC MD ASSOCIATE) Narrative Hugh Shanks PA - 09/16/2024 8:53 AM CLINIC MD ASSOCIATE Hugh Shanks PA 09/16/2024 8:54 AM Midline Date/Time: 09/16/2024 8:53 AM Performed by: Hugh Shanks PA Authorized by: Hugh Shanks PA [place] Protocol: RN Notified of Procedure: yes Informed consent: Risks, benefits, alternatives discussed and patient/promotions representative/guardian agrees and accepts Patient's stated name/ [...] * Blood culture Blood (09/16/2024 8:53 AM CLINIC MD ASSOCIATE) Report Final Report: No growth Blood 09/16/2024 8:53 AM CLINIC MD ASSOCIATE 09/16/2024 8:56 AM CLINIC MD ASSOCIATE William ALEMAN [facility] - 09/21/2024 1:01 PM CLINIC MD ASSOCIATE From a different site than #1. Interpretive [...] organism identification may be performed using the Careem Blood Culture Identification panel. This assay detects microbial DNA in a blood culture broth. This assay has been cleared by the [place] Food and Drug Administration and its performance characteristics have been verified by the [facility] Microbiology Laboratory. Interpretive data was last revised on September 11, 2022. Elida Vigil LAB MICROBIOLOGY - GEN ERAL ORDERABLES Final Result Performing Organization Address [facility] de Phone Number [facility] [address] Department [place] [address] * Blood culture Blood (09/16/2024 8:45 AM CLINIC MD ASSOCIATE) Pathologist [facility] Report Final Report: No growth Blood 09/16/2024 8:45 AM CLINIC MD ASSOCIATE 09/16/2024 8:56 AM CLINIC MD ASSOCIATE Narrative [facility] - 09/21/2024 1:01 PM CLINIC MD ASSOCIATE Interpretive Data 1. Blood cultures are incubated and monitored continuously for 5 days (120 hours). The first negative report is issued within 24 hours of receipt in the laboratory. 2. All positive cultures are resulted and called to physicians/care providers as soon as they are detected. 3. A rapid molecular test for organism identification may be performed using the eCommHub[employer] Blood Culture Identification panel. This assay detects microbial DNA in a blood culture broth. This assay has been cleared by the [place] Food and Drug Administration and its performance characteristics have been verified by the [facility] Microbiology Laboratory. Interpretive data was last revised on September 11, 2022. Elida Winsome Musa [facility] MICROBIOLOGY - GEN ERAL ORDERABLES Final Result Performing Organization Address [facility] de Phone Number [facility] [address] [place] [address] * (ABNORMAL) POCT glucose (09/16/2024 7:33 AM CLINIC MD ASSOCIATE) Glucose, POC 232(H) 70 - 199 mg/dL Comment: For Glucose values <35 mg/dl when Hematocrit is >60 mg/dl,the test may not accurately detect significant hypoglycemia,and testing in the Laboratory should be considered if clinically indicated. Blood 09/16/2024 7:33 AM CLINIC MD ASSOCIATE 09/16/2024 7:33 AM CLINIC MD ASSOCIATE Flo Villagran MD LAB POCT ORDERABLES - DEVICE Final Result Performing Organization Address [facility]/ZIP Co de Phone Number [facility] [address] [place] [address] * (ABNORMAL) CBC with auto differential (09/16/2024 5:30 AM CLINIC MD ASSOCIATE) [facility] WBC 5.4 3.8 - 9.9 K/cumm Hgb 8.6(L) 11.9 - 15.5 g/dL [facility] Hct 28.2(L) 35.6 - 45.5 % [facility] Plt 81(L) 150 - 400 K/cumm [facility] MPV 13.9(H) 9.1 - 12.3 fL [facility] RBC 3.01(L) 3.90 - 5.20 M/cumm [facility] MCV 93.7 81.3 - 96.4 fL [facility] MCH 28.6 27.1 - 33.3 pg [facility] MCHC 30.5(L) 32.3 - 35.7 g/dL [facility] RDW CV 14.9 11.1 - 14.9 % [facility] RDW SD 51.3(H) 35.7 - 48.1 fL [facility] NRBC abs 0.00 0.00 - 0.01 K/cumm [facility] Blood 09/16/2024 5:30 AM CLINIC MD ASSOCIATE 09/16/2024 5:39 AM CLINIC MD ASSOCIATE us Flo Villagran MD LAB BLOOD ORDERABLES Final R esult [facility] [address] [place], [place] [id number] * (ABNORMAL) Manual Differential (09/16/2024 5:30 AM CLINIC MD ASSOCIATE) Pathologist [facility] Differential Manual Cells Counted 116 [facility] Neutrophil abs 4.4 1.5 - 6.5 K/cumm [facility] Imm gran abs 0.0 0.0 - 0.1 K/cumm [facility] Lymphocyte abs 0.6(L) 0.8 - 3.3 K/cumm [facility] Monocyte abs 0.3 0.2 - 0.8 K/cumm [facility] Eosinophil abs 0.0 0.0 - 0.5 K/cumm [facility] Neutrophil pct 81.0 % [facility] Comment: Interpretive Data Percent cell count reference ranges are not reported, since discordance with absolute values may lead to misinterpretation of CBC data. Current Interpretive Data was last revised on 2017. Lymphocyte pct 12.1 % [facility] Comment: Interpretive Data Percent cell count reference ranges are not reported, since discordance with absolute values may lead to misinterpretation of CBC data. Current Interpretive Data was last revised on 2017. Monocyte pct 6.0 % [facility] Comment: Interpretive Data Percent cell count reference ranges are not reported, since discordance with absolute values may lead to misinterpretation of CBC data. Current Interpretive Data was last revised on 2017. Eosinophil pct 0.9 % [facility] Comment: Interpretive Data Percent cell count reference ranges are not reported, since discordance with absolute values may lead to misinterpretation of CBC data. Current Interpretive Data was last revised on 2017. RBC morphology Present(A) [facility] Hypochromasia 3-7/HPF(A) [facility] Anisocytosis Slight(A) [facility] Microcytes 3-7/HPF(A) [facility] Morphology scrn See Comment [facility] Comment:PLT: Giant platelets present Blood 09/16/2024 5:30 AM CLINIC MD ASSOCIATE 09/16/2024 5:39 AM CLINIC MD ASSOCIATE us Flo Villagran MD LAB BLOOD ORDERABLES Final R esult [facility] [address] Department [place] [address] * POCT glucose (09/16/2024 5:23 AM CLINIC MD ASSOCIATE) [facility] Signature Glucose, POC 178 70 - 199 mg/dL Comment: For Glucose values <35 mg/dl when Hematocrit is >60 mg/dl,the test may not accurately detect significant hypoglycemia,and testing in the Laboratory should be considered if clinically indicated. Blood 09/16/2024 5:23 AM CLINIC MD ASSOCIATE 09/16/2024 5:23 AM CLINIC MD ASSOCIATE Flo Villagran MD LAB POCT ORDERABLES - DEVICE Final Result [facility] [address] Department [place] [address] * X-ray chest 1 view (09/16/2024 4:37 AM CLINIC MD ASSOCIATE) Anatomical Region Laterality Modality Body, Chest N/A Computed Radiogr aphy 09/16/2024 7:29 AM CLINIC MD ASSOCIATE Impressions 09/16/2024 7:29 AM CLINIC MD ASSOCIATE Endotracheal tube with tip approximately 3.6 cm superior to jessenia. Gastric tube extends inferior to the [id number] the study, below the GE junction. There are heterogeneous left mid lung and bibasilar lung opacities appear not significantly changed from prior. There is no pneumothorax or definite pleural effusion. Heart and mediastinum are unchanged. Electronically signed by: Abeba Castellano M.D. Narrative 09/16/2024 7:29 AM CLINIC MD ASSOCIATE EXAMINATION: 1 view chest radiograph COMPARISON: 09/15/2024 INDICATION: ET Tube For endotracheal tube position Procedure Note Abeba Castellano MD - 09/16/2024 EXAMINATION: 1 view chest radiograph COMPARISON: 09/15/2024 INDICATION: ET Tube For endotracheal tube position IMPRESSION: Endotracheal tube with tip approximately 3.6 cm superior to jessenia. Gastric tube extends inferior to the [id number] the study, below the GE junction. There are heterogeneous left mid lung and bibasilar lung opacities appear not significantly changed from prior. There is no pneumothorax or definite pleural effusion. Heart and mediastinum are unchanged. Electronically signed by: Abeba Castellano M.D. Flo Villagran MD IMG XR PROCEDURES Final Resu lt * (ABNORMAL) eGFR (09/16/2024 4:05 AM CLINIC MD ASSOCIATE) eGFR 33(L) >=60 mL/min/1. 73 m2 Comment: [...] last reviewed 2021. Blood 09/16/2024 4:05 AM CLINIC MD ASSOCIATE 09/16/2024 4:12 AM CLINIC MD ASSOCIATE Flo Villagran MD LAB BLOOD ORDERABLES Final R esult [facility] [address] Department [place] [address] * Blood culture Blood (09/16/2024 4:05 AM CLINIC MD ASSOCIATE) Report Final Report: No growth Blood 09/16/2024 4:05 AM CLINIC MD ASSOCIATE 09/16/2024 4:38 AM CLINIC MD ASSOCIATE Narrative [facility] - 09/21/2024 7:01 AM CLINIC MD ASSOCIATE Interpretive Data 1. Blood cultures are incubated and monitored continuously for 5 days (120 hours). The first negative report is issued within 24 hours of receipt in the laboratory. 2. All positive cultures are resulted and called to physicians/care providers as soon as they are detected. 3. A rapid molecular test for organism identification may be performed using the Careem Blood Culture Identification panel. This assay detects microbial DNA in a blood culture broth. This assay has been cleared by the [place] Food and Drug Administration and its performance characteristics have been verified by the [facility] Microbiology Laboratory. Interpretive data was last revised on September 11, 2022. Flo Villagran MD LAB MICROBIOLOGY - GENERAL O RDERABLES Final Result Performing Organization Address [facility] Co de Phone Number [facility] [address] Department [employer] [place] [address] * (ABNORMAL) Triglycerides (09/16/2024 4:05 AM CLINIC MD ASSOCIATE) Triglycerides 876(H) <=149 mg/dL Comment: Interpretive Data [...] revised on 2018. Blood 09/16/2024 4:05 AM CLINIC MD ASSOCIATE 09/16/2024 4:05 AM CLINIC MD ASSOCIATE Flo Villagran MD LAB BLOOD ORDERABLES Final R esult Performing Organization Address [facility] Co de Phone Number [facility] [address] Department [employer] [place], [place] [id number] * Magnesium (09/16/2024 4:05 AM CLINIC MD ASSOCIATE) Magnesium 2.2 1.4 - 2.5 mg/dL Blood 09/16/2024 4:05 AM CLINIC MD ASSOCIATE 09/16/2024 4:12 AM CLINIC MD ASSOCIATE Flo Villagran MD LAB BLOOD ORDERABLES Final R esult [facility] [address] Department [place] [address] * (ABNORMAL) Renal function panel (09/16/2024 4:05 AM CLINIC MD ASSOCIATE) Sodium 139 135 - 145 mmol/L Potassium, pl 3.3 3.3 - 4.9 mmol/L [facility] Chloride 107 97 - 110 mmol/L [facility] CO2 19(L) 22 - 32 mmol/L [facility] Anion gap 13 2 - 15 mmol/L [facility] BUN 47(H) 6 - 25 mg/dL [facility] Creatinine 1.85(H) 0.60 - 1.10 mg/dL [facility] Glucose 137 70 - 199 mg/dL [facility] Comment: Interpretive Data Fasting glucose >/= [...] 2022. Calcium 7.8(L) 8.5 - 10.3 mg/dL [facility] Phosphorus, pl 2.8 2.3 - 4.5 mg/dL [facility] Albumin 2.0(L) 3.5 - 5.0 g/dL [facility] Blood 09/16/2024 4:05 AM CLINIC MD ASSOCIATE 09/16/2024 4:12 AM CLINIC MD ASSOCIATE Flo Villagran MD LAB BLOOD ORDERABLES Final R esult Performing Organization Address City/State/[facility] Co de Phone Number [facility] [address] Department [place] [address] * POCT glucose (09/16/2024 3:45 AM CLINIC MD ASSOCIATE) Glucose, POC 137 70 - 199 mg/dL Comment: For Glucose values <35 mg/dl when Hematocrit is >60 mg/dl,the test may not accurately detect significant hypoglycemia,and testing in the Laboratory should be considered if clinically indicated. Blood 09/16/2024 3:45 AM CLINIC MD ASSOCIATE 09/16/2024 3:45 AM CLINIC MD ASSOCIATE Flo Villagran MD LAB POCT ORDERABLES - DEVICE Final Result Performing Organization Address [facility] Co de Phone Number [facility] [address] [place] [address] * MRI Brain WO Contrast (09/16/2024 1:48 AM CLINIC MD ASSOCIATE) Anatomical Region Laterality Modality Head and Neck N/A Magnetic Resonan ce 09/15/2024 10:4 0 PM CLINIC MD ASSOCIATE Impressions 09/16/2024 12:11 PM CLINIC MD ASSOCIATE No acute intracranial abnormality seen given motion limitations. For the purposes of it quality analyst, this study was initially interpreted by teleradiology. There is no significant discrepancy. Dictated by: Hugh Zelaya M.D. The radiology attending physician has personally reviewed this study, and had reviewed and/or edited this written report and agrees with it. Electronically signed by: Matthew Alonso MD, PHD Narrative 09/16/2024 12:11 PM CLINIC MD ASSOCIATE EXAMINATION: Magnetic resonance imaging (MRI) of the [...] given motion limitations. For the purposes of it quality analyst, this study was initially interpreted by teleradiology. There is no significant discrepancy. Dictated by: Hugh Zelaya M.D. The radiology attending physician has personally reviewed this study, and had reviewed and/or edited this written report and agrees with it. Electronically signed by: Matthew Alonso MD, PHD us Flo Villagran MD IM MRI PROCEDURES Final Res ult * POCT glucose (09/16/2024 1:06 AM CLINIC MD ASSOCIATE) Glucose, POC 156 70 - 199 mg/dL Comment: For Glucose values <35 mg/dl when Hematocrit is >60 mg/dl,the test may not accurately detect significant hypoglycemia,and testing in the Laboratory should be considered if clinically indicated. Blood 09/16/2024 1:06 AM CLINIC MD ASSOCIATE 09/16/2024 1:06 AM CLINIC MD ASSOCIATE Flo Villagran MD LAB POCT ORDERABLES - DEVICE Final Result Performing Organization Address [facility] Co de Phone Number [facility] [address] Department [place] [address] * POCT glucose (09/16/2024 12:01 AM CLINIC MD ASSOCIATE) Glucose, POC 155 70 - 199 mg/dL Comment: For Glucose values <35 mg/dl when Hematocrit is >60 mg/dl,the test may not accurately detect significant hypoglycemia,and testing in the Laboratory should be considered if clinically indicated. Blood 09/16/2024 12:0 1 AM CLINIC MD ASSOCIATE 09/16/2024 12:01 AM CLINIC MD ASSOCIATE Flo Villagran MD LAB POCT ORDERABLES - DEVICE Final Result Performing Organization Address [facility] Co de Phone Number [facility] [address] Department [place] [address] * POCT glucose (09/15/2024 9:09 PM CLINIC MD ASSOCIATE) Glucose, POC 166 70 - 199 mg/dL Comment: For Glucose values <35 mg/dl when Hematocrit is >60 mg/dl,the test may not accurately detect significant hypoglycemia,and testing in the Laboratory should be considered if clinically indicated. Blood 09/15/2024 9:09 PM CLINIC MD ASSOCIATE 09/15/2024 9:09 PM CLINIC MD ASSOCIATE Flo Villagran MD LAB POCT ORDERABLES - DEVICE Final Result Performing Organization Address [facility] de Phone Number [facility] [address] [facility] [place] [address] * POCT glucose (09/15/2024 7:41 PM CLINIC MD ASSOCIATE) Glucose, POC 140 70 - 199 mg/dL Comment: For Glucose values <35 mg/dl when Hematocrit is >60 mg/dl,the test may not accurately detect significant hypoglycemia,and testing in the Laboratory should be considered if clinically indicated. Blood 09/15/2024 7:41 PM CLINIC MD ASSOCIATE 09/15/2024 7:41 PM CLINIC MD ASSOCIATE Flo Villagran MD LAB POCT ORDERABLES - DEVICE Final Result Performing Organization Address [facility] de Phone Number [facility] [address] [facility] [place] [address] * POCT glucose (09/15/2024 5:12 PM CLINIC MD ASSOCIATE) Glucose, POC 140 70 - 199 mg/dL Comment: For Glucose values <35 mg/dl when Hematocrit is >60 mg/dl,the test may not accurately detect significant hypoglycemia,and testing in the Laboratory should be considered if clinically indicated. Blood 09/15/2024 5:12 PM CLINIC MD ASSOCIATE 09/15/2024 5:12 PM CLINIC MD ASSOCIATE Flo Villagran MD LAB POCT ORDERABLES - DEVICE Final Result Performing Organization Address [facility] de Phone Number [facility] [address] [facility] [place] [address] * POCT glucose (09/15/2024 3:05 PM CLINIC MD ASSOCIATE) Glucose, POC 117 70 - 199 mg/dL Comment: For Glucose values <35 mg/dl when Hematocrit is >60 mg/dl,the test may not accurately detect significant hypoglycemia,and testing in the Laboratory should be considered if clinically indicated. Blood 09/15/2024 3:05 PM CLINIC MD ASSOCIATE 09/15/2024 3:05 PM CLINIC MD ASSOCIATE Flo Villagran MD LAB POCT ORDERABLES - DEVICE Final Result Performing Organization Address [facility] [facility]/ZIP Co de Phone Number [facility] [address] Department [place] [address] * (ABNORMAL) Aerobic culture and gram stain Sputum Sputum (09/15/2024 1:57 PM CLINIC MD ASSOCIATE) Pathologist [facility] Direct Specimen Exam Stain: Moderate polymorphonuclear leukocytes seen. Many Gram Positive Cocci Report Final Report: Heavy growth of: Staphylococcus aureus, methicillin susceptible Light growth normal sukhdev (.) [facility] Organism STAPHYLOCOCCUS AUREUS, METHICILLIN SUSCEPTIBLE [facility] Sputum (Sputum) 09/15/2024 1 :57 PM CLINIC MD ASSOCIATE 09/15/2024 2:10 PM CLINIC MD ASSOCIATE Narrative Organism Antibiotic Method Susceptibility Staphylococcus aureus, [...] Vancomycin (ROBERTO CARLOS) INTERPRETATION 1 mcg/mL: Susceptible us Flo Villagran MD LAB MICROBIOLOGY - GENERAL O RDERABLES Final Result Performing Organization Address [facility] Co de Phone Number [facility] [address] Department [place] [address] * TRANSESOPHAGEAL ECHO (DEMI) W DOPPLER/CF WO CONTRAST (09/15/2024 1:43 PM CLINIC MD ASSOCIATE) Pathologist [facility] LV EF 55-60 % CONS SCIMAGE Anatomical Region Laterality Modality Ultrasound 09/15/2024 12:4 5 PM CLINIC MD ASSOCIATE Narrative 09/15/2024 5:05 PM CLINIC MD ASSOCIATE [facility] [place] [address] TRANSESOPHAGEAL ECHOCARDIOGRAM Patient Name: BROOKE MARSHALL : 1975 (48y 8m) Gender: F Study Date: 09/15/2024 12:45:30 PM Ht(Inch): 65 Wt(Lb): 202.01 BSA: 2.05 Signals Officer: Location: [address] Order Provider: NILSON DUBOSE BMI: 33.61 [...] intracardiac vegetation. Electronically Signed By: Nilson Dubose [facility] Card 09/15/2024 5:05:10 PM CLINIC MD ASSOCIATE Procedure Note Nilson Dubose MD - 09/15/2024 [place] [address] [place] [address] TRANSESOPHAGEAL ECHOCARDIOGRAM Patient Name: BROOKE MARSHALL : 1975 (48y 8m) Gender: F Study Date: 09/15/2024 12:45:30 PM Ht(Inch): 65 Wt(Lb): 202.01 BSA: 2.05 Signals Officer: Location: [id number] Order Provider: NILSON DUBOSE BMI: 33.61 BP: [...] intracardiac vegetation. Electronically Signed By: Nilson Dubose [facility] Card 09/15/2024 5:05:10 PM CLINIC MD ASSOCIATE Nilson Dubose MD CV ECHO PROCEDURES Final Result * POCT glucose (09/15/2024 1:05 PM CLINIC MD ASSOCIATE) [facility] Signature Glucose, POC 151 70 - 199 mg/dL Comment: For Glucose values <35 mg/dl when Hematocrit is >60 mg/dl,the test may not accurately detect significant hypoglycemia,and testing in the Laboratory should be considered if clinically indicated. Blood 09/15/2024 1:05 PM CLINIC MD ASSOCIATE 09/15/2024 1:05 PM CLINIC MD ASSOCIATE us Flo Villagran MD LAB POCT ORDERABLES - DEVICE Final Result [facility] [address] Department [place] [address] * X-ray chest 1 view (09/15/2024 11:41 AM CLINIC MD ASSOCIATE) Anatomical Region Laterality Modality Body, Chest N/A Computed Radiogr aphy 09/15/2024 12:0 0 PM CLINIC MD ASSOCIATE Addenda Addendum by Cira Mancilla MD on 09/15/2024 1:17 PM CLINIC MD ASSOCIATE Communicated to Dr. Villagran who confirmed that the tube has been pulled back. Dr. Mancilla on 09/15/2024 at 1:15pm. Electronically signed by: Cira Mancilla M.D. Impressions 09/15/2024 12:00 PM CLINIC MD ASSOCIATE FINDINGS and IMPRESSION: Endotracheal tube terminates in the right bronchus, recommend withdrawal by about 6 cm. Feeding tube courses below the imaged [id number], past the GE junction. Increased airspace opacities in the left lung and increased prominence of right upper perihilar airspace opacities may represent progressive pneumonia, to be correlated clinically. Electronically signed by: Cira Mancilla M.D. Narrative 09/15/2024 12:00 PM CLINIC MD ASSOCIATE EXAMINATION: XR CHEST 1 VIEW COMPARISON: 09/15/2024 HISTORY: For endotracheal tube position Procedure Note Cira Mancilla MD - 09/15/2024 EXAMINATION: XR CHEST 1 VIEW COMPARISON: 09/15/2024 HISTORY: For endotracheal tube position IMPRESSION: FINDINGS and IMPRESSION: Endotracheal tube terminates in the right bronchus, recommend withdrawal by about 6 cm. Feeding tube courses below the imaged [id number], past the GE junction. Increased airspace opacities in the left lung and increased prominence of right upper perihilar airspace opacities may represent progressive pneumonia, to be correlated clinically. Electronically signed by: Cira Mancilla M.D. Flo Villagran MD IMG XR PROCEDURES Edited Res ult - Final * (ABNORMAL) Blood gas, arterial (09/15/2024 11:34 AM CLINIC MD ASSOCIATE) pH, Art 7.32(L) 7.35 - 7.45 PCO2, Arterial 48(H) 35 - 45 mmHg [facility] PO2, Arterial 264(H) 83 - 108 mmHg [facility] HCO3 Art (Calculated) 25 20 - 30 mmol/L [facility] BE, art -2 mmol/L [facility] Comment: Interpretive Data No Reference Range Established Current Interpretive Data was last revised on 2017 O2 Sat Art (Calculated) 100(H) 94 - 98 % [facility] Blood 09/15/2024 11:3 4 AM CLINIC MD ASSOCIATE 09/15/2024 11:36 AM CLINIC MD ASSOCIATE us Flo Villagran MD LAB BLOOD ORDERABLES Final R esult Performing Organization Address [facility] Co de Phone Number [facility] [address] Department [place] [address] * POCT glucose (09/15/2024 11:07 AM CLINIC MD ASSOCIATE) [facility] Signature Glucose, POC 183 70 - 199 mg/dL Comment: For Glucose values <35 mg/dl when Hematocrit is >60 mg/dl,the test may not accurately detect significant hypoglycemia,and testing in the Laboratory should be considered if clinically indicated. Blood 09/15/2024 11:0 7 AM CLINIC MD ASSOCIATE 09/15/2024 11:07 AM CLINIC MD ASSOCIATE us Flo Villagran MD LAB POCT ORDERABLES - DEVICE Final Result Performing Organization Address [facility] Co de Phone Number [facility] [address] Department [place] [address] * INTUBATION (09/15/2024 10:31 AM CLINIC MD ASSOCIATE) Narrative Flo Villagran MD - 09/15/2024 10:31 AM CLINIC MD ASSOCIATE Flo Villagran MD 09/15/2024 11:11 AM Intubation [...] * (ABNORMAL) POCT glucose (09/15/2024 9:16 AM CLINIC MD ASSOCIATE) Glucose, POC 200(H) 70 - 199 mg/dL Comment: For Glucose values <35 mg/dl when Hematocrit is >60 mg/dl,the test may not accurately detect significant hypoglycemia,and testing in the Laboratory should be considered if clinically indicated. Blood 09/15/2024 9:16 AM CLINIC MD ASSOCIATE 09/15/2024 9:16 AM CLINIC MD ASSOCIATE us Flo Villagran MD LAB POCT ORDERABLES - DEVICE Final Result Performing Organization Address [facility] Co de Phone Number [facility] [address] [place], [place] [id number] * POCT glucose (09/15/2024 7:06 AM CLINIC MD ASSOCIATE) Glucose, POC 186 70 - 199 mg/dL Comment: For Glucose values <35 mg/dl when Hematocrit is >60 mg/dl,the test may not accurately detect significant hypoglycemia,and testing in the Laboratory should be considered if clinically indicated. Blood 09/15/2024 7:06 AM CLINIC MD ASSOCIATE 09/15/2024 7:06 AM CLINIC MD ASSOCIATE Flo Villagran MD LAB POCT ORDERABLES - DEVICE Final Result Performing Organization Address [facility]/ZIP Co de Phone Number [facility] [address] [facility] [employer] [place], [place] [id number] * POCT glucose (09/15/2024 5:27 AM CLINIC MD ASSOCIATE) Glucose, POC 187 70 - 199 mg/dL Comment: For Glucose values <35 mg/dl when Hematocrit is >60 mg/dl,the test may not accurately detect significant hypoglycemia,and testing in the Laboratory should be considered if clinically indicated. Blood 09/15/2024 5:27 AM CLINIC MD ASSOCIATE 09/15/2024 5:27 AM CLINIC MD ASSOCIATE Flo Villagran MD LAB POCT ORDERABLES - DEVICE Final Result Performing Organization Address [facility] de Phone Number [facility] [address] [facility] [place] [address] * POCT glucose (09/15/2024 3:51 AM CLINIC MD ASSOCIATE) Glucose, POC 189 70 - 199 mg/dL Comment: For Glucose values <35 mg/dl when Hematocrit is >60 mg/dl,the test may not accurately detect significant hypoglycemia,and testing in the Laboratory should be considered if clinically indicated. Blood 09/15/2024 3:51 AM CLINIC MD ASSOCIATE 09/15/2024 3:51 AM CLINIC MD ASSOCIATE us Flo Villagran MD LAB POCT ORDERABLES - DEVICE Final Result Performing Organization Address [facility] de Phone Number [facility] [address] [facility] [place] [address] * (ABNORMAL) aPTT (09/15/2024 3:48 AM CLINIC MD ASSOCIATE) aPTT 49(H) 28 - 38 sec Comment: Interpretive Data Heparin therapeutic range: 66.0 - 100.0 seconds. Range based on correlation with therapeutic heparin activity range of 0.3 - 0.7 Units/mL. Current interpretive data was last revised on 2023. Blood 09/15/2024 3:48 AM CLINIC MD ASSOCIATE 09/15/2024 3:52 AM CLINIC MD ASSOCIATE Abeba Ash MD LAB BLOOD ORDERABLES Final R esult Performing Organization Address [facility] Co de Phone Number [facility] [address] [facility] [place] [address] * XR Chest 1 View (09/15/2024 3:41 AM CLINIC MD ASSOCIATE) Anatomical Region Laterality Modality Body, Chest N/A Computed Radiogr aphy 09/15/2024 7:33 AM CLINIC MD ASSOCIATE Impressions 09/15/2024 7:33 AM CLINIC MD ASSOCIATE Comparison is made to 09/14/2024. A nasogastric tube tip is located with diaphragm, not included [id number]. There is slightly improving aeration within the left midlung and lung base which may represent improving pneumonia. The right mid to upper lung there is a persistent area of nodular consolidation which is favored to be infectious as well. No pleural effusion. No pneumothorax. Stable heart size. Electronically signed by: Ruiz Coles M.D. Narrative 09/15/2024 7:33 AM CLINIC MD ASSOCIATE Examination: Chest 1 view Procedure Note Ruiz Coles MD - 09/15/2024 Examination: Chest 1 view IMPRESSION: Comparison is made to 09/14/2024. A nasogastric tube tip is located with diaphragm, not included [id number]. There is slightly improving aeration within the left midlung and lung base which may represent improving pneumonia. The right mid to upper lung there is a persistent area of nodular consolidation which is favored to be infectious as well. No pleural effusion. No pneumothorax. Stable heart size. Electronically signed by: Ruiz Coles M.D. Flo Villagran MD IM XR PROCEDURES Final Resu lt * (ABNORMAL) eGFR (09/15/2024 1:50 AM CLINIC MD ASSOCIATE) eGFR 40(L) >=60 mL/min/1. 73 m2 Comment: [...] last reviewed 2021. Blood 09/15/2024 1:50 AM CLINIC MD ASSOCIATE 09/15/2024 2:27 AM CLINIC MD ASSOCIATE us Flo Villagran MD LAB BLOOD ORDERABLES Final R esult [facility] [address] Department [place] [address] * (ABNORMAL) CBC without differential (09/15/2024 1:50 AM CLINIC MD ASSOCIATE) WBC 5.0 3.8 - 9.9 K/cumm Hgb 9.9(L) 11.9 - 15.5 g/dL [facility] Hct 31.5(L) 35.6 - 45.5 % [facility] Plt 67(L) 150 - 400 K/cumm [facility] Comment:Automated count conf irmed by smear review. MPV 13.3(H) 9.1 - 12.3 fL [facility] RBC 3.39(L) 3.90 - 5.20 M/cumm [facility] MCV 92.9 81.3 - 96.4 fL [facility] MCH 29.2 27.1 - 33.3 pg [facility] MCHC 31.4(L) 32.3 - 35.7 g/dL [facility] RDW CV 15.0(H) 11.1 - 14.9 % [facility] RDW SD 51.5(H) 35.7 - 48.1 fL [facility] NRBC abs 0.00 0.00 - 0.01 K/cumm [facility] Blood 09/15/2024 1:50 AM CLINIC MD ASSOCIATE 09/15/2024 2:27 AM CLINIC MD ASSOCIATE Flo Villagran MD LAB BLOOD ORDERABLES Final R esult Performing Organization Address [facility] Co de Phone Number [facility] [address] [facility] [place], [place] [id number] * (ABNORMAL) Phosphorus (09/15/2024 1:50 AM CLINIC MD ASSOCIATE) Phosphorus, pl 1.7(L) 2.3 - 4.5 mg/dL Blood 09/15/2024 1:50 AM CLINIC MD ASSOCIATE 09/15/2024 2:27 AM CLINIC MD ASSOCIATE Flo Villagran MD LAB BLOOD ORDERABLES Final R esult Performing Organization Address [facility] Co de Phone Number [facility] [address] [facility] [place] [address] * Magnesium (09/15/2024 1:50 AM CLINIC MD ASSOCIATE) Magnesium 2.4 1.4 - 2.5 mg/dL Comment:Reviewed Blood 09/15/2024 1:50 AM CLINIC MD ASSOCIATE 09/15/2024 2:27 AM CLINIC MD ASSOCIATE lFo Villagran MD LAB BLOOD ORDERABLES Final R esult Performing Organization Address [facility] Co de Phone Number [facility] [address] [facility] [place] [address] * Bilirubin, direct (09/15/2024 1:50 AM CLINIC MD ASSOCIATE) Bilirubin, direct 0.3 0.1 - 0.3 mg/dL Blood 09/15/2024 1:50 AM CLINIC MD ASSOCIATE 09/15/2024 2:27 AM CLINIC MD ASSOCIATE Flo Villagran MD LAB BLOOD ORDERABLES Final R esult [facility] [address] [place] Department [place] [address] * (ABNORMAL) Comprehensive metabolic panel (09/15/2024 1:50 AM CLINIC MD ASSOCIATE) Sodium 147(H) 135 - 145 mmol/L Potassium, pl 3.1(L) 3.3 - 4.9 mmol/L [facility] Chloride 110 97 - 110 mmol/L [facility] CO2 24 22 - 32 mmol/L [facility] Anion gap 13 2 - 15 mmol/L [facility] BUN 44(H) 6 - 25 mg/dL [facility] Creatinine 1.56(H) 0.60 - 1.10 mg/dL [facility] Glucose 179 70 - 199 mg/dL [facility] Comment: Interpretive Data Fasting glucose >/= [...] 2022. Calcium 8.5 8.5 - 10.3 mg/dL [facility] Bilirubin, total 0.5 0.1 - 1.2 mg/dL [facility] Protein, pl 5.6(L) 6.5 - 8.5 g/dL [facility] Albumin 2.4(L) 3.5 - 5.0 g/dL [facility] Alk phos 77 40 - 130 Units/L [facility] ALT 23 7 - 45 Units/L [facility] AST 35 10 - 45 Units/L [facility] Blood 09/15/2024 1:50 AM CLINIC MD ASSOCIATE 09/15/2024 2:27 AM CLINIC MD ASSOCIATE Flo Villagran MD LAB BLOOD ORDERABLES Final R esult [facility] [address] [facility] [place] [address] * POCT glucose (09/15/2024 12:53 AM CLINIC MD ASSOCIATE) Glucose, POC 166 70 - 199 mg/dL Comment: For Glucose values <35 mg/dl when Hematocrit is >60 mg/dl,the test may not accurately detect significant hypoglycemia,and testing in the Laboratory should be considered if clinically indicated. Blood 09/15/2024 12:5 3 AM CLINIC MD ASSOCIATE 09/15/2024 12:53 AM CLINIC MD ASSOCIATE Flo Villagran MD LAB POCT ORDERABLES - DEVICE Final Result Performing Organization Address [facility] de Phone Number [facility] [address] [facility] [place] [address] * POCT glucose (09/14/2024 11:15 PM CLINIC MD ASSOCIATE) Glucose, POC 178 70 - 199 mg/dL Comment: For Glucose values <35 mg/dl when Hematocrit is >60 mg/dl,the test may not accurately detect significant hypoglycemia,and testing in the Laboratory should be considered if clinically indicated. Blood 09/14/2024 11:1 5 PM CLINIC MD ASSOCIATE 09/14/2024 11:15 PM CLINIC MD ASSOCIATE Flo Villagran MD LAB POCT ORDERABLES - DEVICE Final Result Performing Organization Address [facility] de Phone Number [facility] [address] [place] [address] * (ABNORMAL) aPTT (09/14/2024 9:19 PM CLINIC MD ASSOCIATE) aPTT 57(H) 28 - 38 sec Comment: Interpretive Data Heparin therapeutic range: 66.0 - 100.0 seconds. Range based on correlation with therapeutic heparin activity range of 0.3 - 0.7 Units/mL. Current interpretive data was last revised on 2023. Blood 09/14/2024 9:19 PM CLINIC MD ASSOCIATE 09/14/2024 9:19 PM CLINIC MD ASSOCIATE Flo Villagran MD LAB BLOOD ORDERABLES Final R esult Performing Organization Address [facility] Co de Phone Number [facility] [address] [facility] [place] [address] * POCT glucose (09/14/2024 9:16 PM CLINIC MD ASSOCIATE) Glucose, POC 162 70 - 199 mg/dL Comment: For Glucose values <35 mg/dl when Hematocrit is >60 mg/dl,the test may not accurately detect significant hypoglycemia,and testing in the Laboratory should be considered if clinically indicated. Blood 09/14/2024 9:16 PM CLINIC MD ASSOCIATE 09/14/2024 9:16 PM CLINIC MD ASSOCIATE Flo Villagran MD LAB POCT ORDERABLES - DEVICE Final Result Performing Organization Address [facility] de Phone Number [facility] [address] [facility] [place] [address] * POCT glucose (09/14/2024 7:20 PM CLINIC MD ASSOCIATE) Glucose, POC 171 70 - 199 mg/dL Comment: For Glucose values <35 mg/dl when Hematocrit is >60 mg/dl,the test may not accurately detect significant hypoglycemia,and testing in the Laboratory should be considered if clinically indicated. Blood 09/14/2024 7:20 PM CLINIC MD ASSOCIATE 09/14/2024 7:20 PM CLINIC MD ASSOCIATE Flo Villagran MD LAB POCT ORDERABLES - DEVICE Final Result Performing Organization Address [facility] Co de Phone Number [facility] [address] [facility] [place] [address] * POCT glucose (09/14/2024 6:16 PM CLINIC MD ASSOCIATE) Glucose, POC 183 70 - 199 mg/dL Comment: For Glucose values <35 mg/dl when Hematocrit is >60 mg/dl,the test may not accurately detect significant hypoglycemia,and testing in the Laboratory should be considered if clinically indicated. Blood 09/14/2024 6:16 PM CLINIC MD ASSOCIATE 09/14/2024 6:16 PM CLINIC MD ASSOCIATE Flo Villagran MD LAB POCT ORDERABLES - DEVICE Final Result Performing Organization Address [facility] de Phone Number [facility] [address] [facility] [place] [address] * POCT glucose (09/14/2024 4:55 PM CLINIC MD ASSOCIATE) Glucose, POC 186 70 - 199 mg/dL Comment: For Glucose values <35 mg/dl when Hematocrit is >60 mg/dl,the test may not accurately detect significant hypoglycemia,and testing in the Laboratory should be considered if clinically indicated. Blood 09/14/2024 4:55 PM CLINIC MD ASSOCIATE 09/14/2024 4:55 PM CLINIC MD ASSOCIATE Result [facility] Flo Villagran MD LAB POCT ORDERABLES - DEVICE Final Result Performing Organization Address [facility] de Phone Number [facility] [address] [place] [address] * POCT glucose (09/14/2024 4:10 PM CLINIC MD ASSOCIATE) Glucose, POC 179 70 - 199 mg/dL Comment: For Glucose values <35 mg/dl when Hematocrit is >60 mg/dl,the test may not accurately detect significant hypoglycemia,and testing in the Laboratory should be considered if clinically indicated. Blood 09/14/2024 4:10 PM CLINIC MD ASSOCIATE 09/14/2024 4:10 PM CLINIC MD ASSOCIATE Flo Villagran MD LAB POCT ORDERABLES - DEVICE Final Result Performing Organization Address [facility] de Phone Number [facility] [address] Department [place] [address] * POCT glucose (09/14/2024 3:03 PM CLINIC MD ASSOCIATE) [facility] Glucose, POC 179 70 - 199 mg/dL Comment: For Glucose values <35 mg/dl when Hematocrit is >60 mg/dl,the test may not accurately detect significant hypoglycemia,and testing in the Laboratory should be considered if clinically indicated. Blood 09/14/2024 3:03 PM CLINIC MD ASSOCIATE 09/14/2024 3:03 PM CLINIC MD ASSOCIATE us Flo Villagran MD LAB POCT ORDERABLES - DEVICE Final Result [facility] [address] Department [place] [address] * (ABNORMAL) eGFR (09/14/2024 1:05 PM CLINIC MD ASSOCIATE) [facility] eGFR 41(L) >=60 mL/min/1. 73 m2 [...] last reviewed 2021. Blood 09/14/2024 1:05 PM CLINIC MD ASSOCIATE 09/14/2024 1:20 PM CLINIC MD ASSOCIATE us Flo Villagran MD LAB BLOOD ORDERABLES Final R esult Performing Organization Address [facility] Co de Phone Number [facility] [address] [facility] [place] [address] * (ABNORMAL) aPTT (09/14/2024 1:05 PM CLINIC MD ASSOCIATE) aPTT 112(H) 28 - 38 sec Comment: Interpretive Data Heparin therapeutic range: 66.0 - 100.0 seconds. Range based on correlation with therapeutic heparin activity range of 0.3 - 0.7 Units/mL. Current interpretive data was last revised on 2023. Blood 09/14/2024 1:05 PM CLINIC MD ASSOCIATE 09/14/2024 1:19 PM CLINIC MD ASSOCIATE Flo Villagran MD LAB BLOOD ORDERABLES Final R [facility] Performing Organization Address [facility] de Phone Number [facility] [address] [facility] [place] [address] * (ABNORMAL) Renal function panel (09/14/2024 1:05 PM CLINIC MD ASSOCIATE) Sodium 152(H) 135 - 145 mmol/L Potassium, pl 3.3 3.3 - 4.9 mmol/L [facility] Chloride 115(H) 97 - 110 mmol/L [facility] CO2 25 22 - 32 mmol/L [facility] Anion gap 12 2 - 15 mmol/L [facility] BUN 45(H) 6 - 25 mg/dL [facility] Creatinine 1.54(H) 0.60 - 1.10 mg/dL [facility] Glucose 177 70 - 199 mg/dL [facility] Comment: Interpretive Data Fasting glucose >/= [...] 2022. Calcium 8.8 8.5 - 10.3 mg/dL [facility] Phosphorus, pl 2.6 2.3 - 4.5 mg/dL [facility] Albumin 2.5(L) 3.5 - 5.0 g/dL [facility] Blood 09/14/2024 1:05 PM CLINIC MD ASSOCIATE 09/14/2024 1:20 PM CLINIC MD ASSOCIATE Flo Villagran MD LAB BLOOD ORDERABLES Final R esult Performing Organization Address [facility]/ZIP Co de Phone Number [facility] [address] [place] [address] * POCT glucose (09/14/2024 12:55 PM CLINIC MD ASSOCIATE) Glucose, POC 168 70 - 199 mg/dL Comment: For Glucose values <35 mg/dl when Hematocrit is >60 mg/dl,the test may not accurately detect significant hypoglycemia,and testing in the Laboratory should be considered if clinically indicated. Blood 09/14/2024 12:5 5 PM CLINIC MD ASSOCIATE 09/14/2024 12:55 PM CLINIC MD ASSOCIATE Flo Villagran MD LAB POCT ORDERABLES - DEVICE Final Result [facility] [address] [place] [address] * POCT glucose (09/14/2024 12:01 PM CLINIC MD ASSOCIATE) Glucose, POC 170 70 - 199 mg/dL Comment: For Glucose values <35 mg/dl when Hematocrit is >60 mg/dl,the test may not accurately detect significant hypoglycemia,and testing in the Laboratory should be considered if clinically indicated. Blood 09/14/2024 12:0 1 PM CLINIC MD ASSOCIATE 09/14/2024 12:01 PM CLINIC MD ASSOCIATE Flo Villagran MD LAB POCT ORDERABLES - DEVICE Final Result Performing Organization Address [facility] de Phone Number [facility] [address] [facility] [place] [address] * POCT glucose (09/14/2024 11:05 AM CLINIC MD ASSOCIATE) [facility] Glucose, POC 188 70 - 199 mg/dL Comment: For Glucose values <35 mg/dl when Hematocrit is >60 mg/dl,the test may not accurately detect significant hypoglycemia,and testing in the Laboratory should be considered if clinically indicated. Blood 09/14/2024 11:0 5 AM CLINIC MD ASSOCIATE 09/14/2024 11:05 AM CLINIC MD ASSOCIATE Flo Villagran MD LAB POCT ORDERABLES - DEVICE Final Result Performing Organization Address [facility] de Phone Number [facility] [address] [facility] [place], [place] [id number] * POCT glucose (09/14/2024 10:04 AM CLINIC MD ASSOCIATE) [facility] Glucose, POC 195 70 - 199 mg/dL Comment: For Glucose values <35 mg/dl when Hematocrit is >60 mg/dl,the test may not accurately detect significant hypoglycemia,and testing in the Laboratory should be considered if clinically indicated. Blood 09/14/2024 10:0 4 AM CLINIC MD ASSOCIATE 09/14/2024 10:04 AM CLINIC MD ASSOCIATE Flo Villagran MD LAB POCT ORDERABLES - DEVICE Final Result Performing Organization Address [facility] de Phone Number [facility] [address] [facility] [place], [place] [id number] * (ABNORMAL) Blood culture Blood (09/14/2024 9:42 AM CLINIC MD ASSOCIATE) [facility] Direct Specimen Exam Stain: Gram Positive Cocci in clusters Test result called to and read back by Ana Maria Grier RN on 09/15/2024 05:37:49 by MARCELL. Report Final Report: Staphylococcus aureus, methicillin susceptible Susceptibility reported on this organism on previous culture [id number] (.) [facility] Organism STAPHYLOCOCCUS AUREUS, METHICILLIN SUSCEPTIBLE [facility] Blood 09/14/2024 9:42 AM CLINIC MD ASSOCIATE 09/14/2024 9:50 AM CLINIC MD ASSOCIATE Narrative [facility] - 09/16/2024 10:13 AM CLINIC MD ASSOCIATE From a different site than #1. Interpretive [...] organism identification may be performed using the Careem Blood Culture Identification panel. This assay detects microbial DNA in a blood culture broth. This assay has been cleared by the [place] Food and Drug Administration and its performance characteristics have been verified by the [facility] Laboratory. Interpretive data was last revised on September 11, 2022. Flo Villagran MD LAB MICROBIOLOGY - GENERAL O RDERABLES Final Result [facility] [address] Department [place] [address] * Blood culture Blood (09/14/2024 9:42 AM CLINIC MD ASSOCIATE) Report Final Report: No growth Blood 09/14/2024 9:42 AM CLINIC MD ASSOCIATE 09/14/2024 12:44 PM CLINIC MD ASSOCIATE Narrative [facility] - 09/19/2024 1:00 PM CLINIC MD ASSOCIATE Interpretive Data 1. Blood cultures are incubated and monitored continuously for 5 days (120 hours). The first negative report is issued within 24 hours of receipt in the laboratory. 2. All positive cultures are resulted and called to physicians/care providers as soon as they are detected. 3. A rapid molecular test for organism identification may be performed using the Careem Blood Culture Identification panel. This assay detects microbial DNA in a blood culture broth. This assay has been cleared by the [place] Food and Drug Administration and its performance characteristics have been verified by the [facility] Microbiology Laboratory. Interpretive data was last revised on September 11, 2022. Flo Villagran MD LAB MICROBIOLOGY - GENERAL O RDERABLES Final Result Performing Organization Address [facility] de Phone Number [facility] [address] Department [place] [address] * (ABNORMAL) POCT glucose (09/14/2024 8:56 AM CLINIC MD ASSOCIATE) Glucose, POC 228(H) 70 - 199 mg/dL Comment: For Glucose values <35 mg/dl when Hematocrit is >60 mg/dl,the test may not accurately detect significant hypoglycemia,and testing in the Laboratory should be considered if clinically indicated. Blood 09/14/2024 8:56 AM CLINIC MD ASSOCIATE 09/14/2024 8:56 AM CLINIC MD ASSOCIATE Flo Villagran MD LAB POCT ORDERABLES - DEVICE Final Result Performing Organization Address [facility] de Phone Number [facility] [address] Department [place] [address] * (ABNORMAL) Blood gas, arterial (09/14/2024 8:08 AM CLINIC MD ASSOCIATE) pH, Art 7.34(L) 7.35 - 7.45 PCO2, Arterial 45 35 - 45 mmHg [facility] PO2, Arterial 79(L) 83 - 108 mmHg [facility] HCO3 Art (Calculated) 24 20 - 30 mmol/L [facility] BE, art -2 mmol/L [facility] Comment: Interpretive Data No Reference Range Established Current Interpretive Data was last revised on 2017 O2 Sat Art (Calculated) 95 94 - 98 % [facility] Blood 09/14/2024 8:08 AM CLINIC MD ASSOCIATE 09/14/2024 8:11 AM CLINIC MD ASSOCIATE Flo Villagran MD LAB BLOOD ORDERABLES Final R esult Performing Organization Address [facility] Co de Phone Number [facility] [address] [facility] [place] [address] * (ABNORMAL) POCT glucose (09/14/2024 7:50 AM CLINIC MD ASSOCIATE) Glucose, POC 235(H) 70 - 199 mg/dL Comment: For Glucose values <35 mg/dl when Hematocrit is >60 mg/dl,the test may not accurately detect significant hypoglycemia,and testing in the Laboratory should be considered if clinically indicated. Blood 09/14/2024 7:50 AM CLINIC MD ASSOCIATE 09/14/2024 7:50 AM CLINIC MD ASSOCIATE us Flo Villagran MD LAB POCT ORDERABLES - DEVICE Final Result Performing Organization Address [facility] de Phone Number [facility] [address] [facility] [place] [address] * (ABNORMAL) aPTT (09/14/2024 6:06 AM CLINIC MD ASSOCIATE) Pathologist [facility] aPTT >150(C) 28 - 38 sec Comment: Critical result called to and read back by Tatiana Sutton (RN) on 09/14/2024 07:20:52 CLINIC MD ASSOCIATE to [id number]. Specimen integrity checked. No clot Interpretive Data Heparin therapeutic range: 66.0 - 100.0 seconds. Range based on correlation with therapeutic heparin activity range of 0.3 - 0.7 Units/mL. Current interpretive data was last revised on 2023. Blood 09/14/2024 6:06 AM CLINIC MD ASSOCIATE 09/14/2024 6:23 AM CLINIC MD ASSOCIATE us Abeba Ash MD LAB BLOOD ORDERABLES Final R esult Performing Organization Address [facility] Co de Phone Number [facility] [address] [facility] [place] [address] * (ABNORMAL) POCT glucose (09/14/2024 4:10 AM CLINIC MD ASSOCIATE) Glucose, POC 301(H) 70 - 199 mg/dL Comment: For Glucose values <35 mg/dl when Hematocrit is >60 mg/dl,the test may not accurately detect significant hypoglycemia,and testing in the Laboratory should be considered if clinically indicated. Blood 09/14/2024 4:10 AM CLINIC MD ASSOCIATE 09/14/2024 4:10 AM CLINIC MD ASSOCIATE Flo Villagran MD LAB POCT ORDERABLES - DEVICE Final Result [facility] [address] Department [place] [address] * XR Chest 1 View (09/14/2024 3:10 AM CLINIC MD ASSOCIATE) Anatomical Region Laterality Modality Body, Chest N/A Computed Radiogr aphy 09/14/2024 7:30 AM CLINIC MD ASSOCIATE Impressions 09/14/2024 7:30 AM CLINIC MD ASSOCIATE Comparison is made to prior chest radiograph dated 09/13/2024. Feeding tube terminates in the stomach. There are increased patchy opacities in the left greater than right lung bases. Findings are most consistent with pneumonia, possibly related to aspiration. No pleural effusion. No pneumothorax. Stable heart size. Electronically signed by: Pippa Sin M.D. Narrative 09/14/2024 7:30 AM CLINIC MD ASSOCIATE EXAMINATION: XR CHEST 1 VIEW Procedure Note [...] lt * (ABNORMAL) eGFR (09/14/2024 1:59 AM CLINIC MD ASSOCIATE) eGFR 38(L) >=60 mL/min/1. 73 m2 Comment: [...] last reviewed 2021. Blood 09/14/2024 1:59 AM CLINIC MD ASSOCIATE 09/14/2024 2:14 AM CLINIC MD ASSOCIATE us Flo Villagran MD LAB BLOOD ORDERABLES Final R esult [facility] [address] Department [place] [address] * (ABNORMAL) Manual Differential (09/14/2024 1:59 AM CLINIC MD ASSOCIATE) [facility] Cells Counted 125 Neutrophil abs 3.5 1.5 - 6.5 K/cumm [facility] Imm gran abs 0.1 0.0 - 0.1 K/cumm [facility] Lymphocyte abs 0.3(L) 0.8 - 3.3 K/cumm [facility] Monocyte abs 0.4 0.2 - 0.8 K/cumm [facility] Neutrophil pct 83.2 % [facility] Comment: Interpretive Data Percent cell count reference ranges are not reported, since discordance with absolute values may lead to misinterpretation of CBC data. Current Interpretive Data was last revised on 2017. Lymphocyte pct 6.4 % [facility] Comment: Interpretive Data Percent cell count reference ranges are not reported, since discordance with absolute values may lead to misinterpretation of CBC data. Current Interpretive Data was last revised on 2017. Monocyte pct 8.8 % [facility] Comment: Interpretive Data Percent cell count reference ranges are not reported, since discordance with absolute values may lead to misinterpretation of CBC data. Current Interpretive Data was last revised on 2017. Metamyelocyte pct 1.6(H) 0.0 - 0.0 % [facility] RBC morphology Present(A) [facility] Anisocytosis Slight(A) [facility] Poikilocytosis Moderate(A ) [facility] Echinocytes 3-7/HPF(A) [facility] Platelet estimate Decreased( A) [facility] Morphology scrn See Comment [facility] Comment:WBC: Toxic Vacuolati on present PLT: Platelet morphology normal Automated count not confirmed by smear review; See platelet estimate Blood 09/14/2024 1:59 AM CLINIC MD ASSOCIATE 09/14/2024 2:14 AM CLINIC MD ASSOCIATE us Flo Villagran MD LAB BLOOD ORDERABLES Final R esult [facility] [address] Department [place] [address] * (ABNORMAL) CBC without differential (09/14/2024 1:59 AM CLINIC MD ASSOCIATE) WBC 4.2 3.8 - 9.9 K/cumm Hgb 11.1(L) 11.9 - 15.5 g/dL [facility] Hct 36.5 35.6 - 45.5 % [facility] Plt 71(L) 150 - 400 K/cumm [facility] Comment:no clot MPV 12.8(H) 9.1 - 12.3 fL [facility] RBC 3.85(L) 3.90 - 5.20 M/cumm [facility] MCV 94.8 81.3 - 96.4 fL [facility] MCH 28.8 27.1 - 33.3 pg [facility] MCHC 30.4(L) 32.3 - 35.7 g/dL [facility] RDW CV 14.8 11.1 - 14.9 % [facility] RDW SD 51.8(H) 35.7 - 48.1 fL [facility] NRBC abs 0.00 0.00 - 0.01 K/cumm [facility] Blood 09/14/2024 1:59 AM CLINIC MD ASSOCIATE 09/14/2024 2:14 AM CLINIC MD ASSOCIATE Flo Villagran MD LAB BLOOD ORDERABLES Final R esult Performing Organization Address City/[facility] Co de Phone Number [facility] [address] [facility] [place] [address] * Phosphorus (09/14/2024 1:59 AM CLINIC MD ASSOCIATE) Phosphorus, pl 4.2 2.3 - 4.5 mg/dL Comment:Reviewed Blood 09/14/2024 1:59 AM CLINIC MD ASSOCIATE 09/14/2024 2:14 AM CLINIC MD ASSOCIATE Flo Villagran MD LAB BLOOD ORDERABLES Final R esult Performing Organization Address [facility] Co de Phone Number [facility] [address] [facility] [place], [place] [id number] * Magnesium (09/14/2024 1:59 AM CLINIC MD ASSOCIATE) Magnesium 1.8 1.4 - 2.5 mg/dL Blood 09/14/2024 1:59 AM CLINIC MD ASSOCIATE 09/14/2024 2:14 AM CLINIC MD ASSOCIATE Flo Villagran MD LAB BLOOD ORDERABLES Final R esult Performing Organization Address [facility] Co de Phone Number [facility] [address] [facility] [place], [place] [phone] * Bilirubin, direct (09/14/2024 1:59 AM CLINIC MD ASSOCIATE) Bilirubin, direct 0.3 0.1 - 0.3 mg/dL Blood 09/14/2024 1:59 AM CLINIC MD ASSOCIATE 09/14/2024 2:14 AM CLINIC MD ASSOCIATE us Flo Villagran MD LAB BLOOD ORDERABLES Final R esult [facility] [address] Department [place] [address] * (ABNORMAL) Comprehensive metabolic panel (09/14/2024 1:59 AM CLINIC MD ASSOCIATE) Sodium 149(H) 135 - 145 mmol/L Potassium, pl 3.8 3.3 - 4.9 mmol/L [facility] Chloride 112(H) 97 - 110 mmol/L [facility] CO2 20(L) 22 - 32 mmol/L [facility] Anion gap 17(H) 2 - 15 mmol/L [facility] BUN 44(H) 6 - 25 mg/dL [facility] Creatinine 1.63(H) 0.60 - 1.10 mg/dL [facility] Glucose 312(H) 70 - 199 mg/dL [facility] Comment: Interpretive Data Fasting glucose >/= [...] 2022. Calcium 8.5 8.5 - 10.3 mg/dL [facility] Bilirubin, total 0.6 0.1 - 1.2 mg/dL [facility] Protein, pl 6.0(L) 6.5 - 8.5 g/dL [facility] Albumin 2.8(L) 3.5 - 5.0 g/dL [facility] Alk phos 96 40 - 130 Units/L [facility] ALT 28 7 - 45 Units/L [facility] AST 51(H) 10 - 45 Units/L [facility] Blood 09/14/2024 1:59 AM CLINIC MD ASSOCIATE 09/14/2024 2:14 AM CLINIC MD ASSOCIATE Flo Villagran MD LAB BLOOD ORDERABLES Final R esult Performing Organization Address [facility] de Phone Number [facility] [address] [facility] [place], [place] [phone] * (ABNORMAL) POCT glucose (09/14/2024 12:41 AM CLINIC MD ASSOCIATE) Glucose, POC 266(H) 70 - 199 mg/dL Comment: For Glucose values <35 mg/dl when Hematocrit is >60 mg/dl,the test may not accurately detect significant hypoglycemia,and testing in the Laboratory should be considered if clinically indicated. Blood 09/14/2024 12:4 1 AM CLINIC MD ASSOCIATE 09/14/2024 12:41 AM CLINIC MD ASSOCIATE Flo Villagran MD LAB POCT ORDERABLES - DEVICE Final Result Performing Organization Address [facility] de Phone Number [facility] [address] [facility] [place] [address] * (ABNORMAL) aPTT (09/13/2024 9:58 PM CLINIC MD ASSOCIATE) Pathologist [facility] aPTT 148(C) 28 - 38 sec Comment: spoke with Linda Jean (RN) 09/13/2024 22:44:39 CLINIC MD ASSOCIATE [id number] Interpretive Data Heparin therapeutic range: 66.0 - 100.0 seconds. Range based on correlation with therapeutic heparin activity range of 0.3 - 0.7 Units/mL. Current interpretive data was last revised on 2023. Blood 09/13/2024 9:58 PM CLINIC MD ASSOCIATE 09/13/2024 10:02 PM CLINIC MD ASSOCIATE Flo Villagran MD LAB BLOOD ORDERABLES Final R esult Performing Organization Address [facility] de Phone Number [facility] [address] Department [place] [address] * XR Abdomen 2 Views Erect and or Decubitus (09/13/2024 9:41 PM CLINIC MD ASSOCIATE) Anatomical Region Laterality Modality Body, Abdomen N/A Computed Radiogr aphy 09/14/2024 9:14 AM CLINIC MD ASSOCIATE Impressions 09/14/2024 9:14 AM CLINIC MD ASSOCIATE Supine and upright views of the abdomen [...] Alfonso Taylor M.D. Narrative 09/14/2024 9:14 AM CLINIC MD ASSOCIATE EXAMINATION: XR ABDOMEN ERECT AND OR DECUBITUS [...] * (ABNORMAL) POCT glucose (09/13/2024 7:57 PM CLINIC MD ASSOCIATE) Glucose, POC 249(H) 70 - 199 mg/dL Comment: For Glucose values <35 mg/dl when Hematocrit is >60 mg/dl,the test may not accurately detect significant hypoglycemia,and testing in the Laboratory should be considered if clinically indicated. Blood 09/13/2024 7:57 PM CLINIC MD ASSOCIATE 09/13/2024 7:57 PM CLINIC MD ASSOCIATE Flo Villagran MD LAB POCT ORDERABLES - DEVICE Final Result Performing Organization Address [facility] Co de Phone Number [facility] [address] [place], [place] [phone] * (ABNORMAL) eGFR (09/13/2024 6:33 PM CLINIC MD ASSOCIATE) eGFR 47(L) >=60 mL/min/1. 73 m2 Comment: [...] last reviewed 2021. Blood 09/13/2024 6:33 PM CLINIC MD ASSOCIATE 09/13/2024 6:41 PM CLINIC MD ASSOCIATE Flo Villagran MD LAB BLOOD ORDERABLES Final R esult Performing Organization Address [facility]/ZIP Co de Phone Number [facility] [address] [place], [place] [phone] * (ABNORMAL) Renal function panel (09/13/2024 6:33 PM CLINIC MD ASSOCIATE) Sodium 146(H) 135 - 145 mmol/L Potassium, pl 3.6 3.3 - 4.9 mmol/L [facility] Chloride 112(H) 97 - 110 mmol/L [facility] CO2 20(L) 22 - 32 mmol/L [facility] Anion gap 14 2 - 15 mmol/L [facility] BUN 42(H) 6 - 25 mg/dL [facility] Creatinine 1.38(H) 0.60 - 1.10 mg/dL [facility] Glucose 182 70 - 199 mg/dL [facility] Comment: Interpretive Data Fasting glucose >/= [...] 2022. Calcium 7.9(L) 8.5 - 10.3 mg/dL [facility] Phosphorus, pl 2.1(L) 2.3 - 4.5 mg/dL [facility] Albumin 2.4(L) 3.5 - 5.0 g/dL [facility] Blood 09/13/2024 6:33 PM CLINIC MD ASSOCIATE 09/13/2024 6:41 PM CLINIC MD ASSOCIATE us Flo Villagran MD LAB BLOOD ORDERABLES Final R esult [facility] [address] Department [place] [address] * ECG 12 lead (09/13/2024 5:24 PM CLINIC MD ASSOCIATE) 09/13/2024 5:24 PM CLINIC MD ASSOCIATE Narrative [facility] - 09/14/2024 12:02 AM CLINIC MD ASSOCIATE Vent Rate: 136 bpm RR Interval: 440 msec [place] Interval: 122 msec QRS Duration: 86 msec QT Interval: 330 msec QTC Interval: 410 msec P-R-T [place]: 57 - -14 - 116 degrees IMPRESSION: SINUS TACHYCARDIA ST DEVIATION AND MODERATE T-WAVE ABNORMALITY, CONSIDER LATERAL ISCHEMIA ABNORMAL ECG Electronically Signed By: Nilson Duboes [facility] Card Flo Villagran MD ECG ORDERABLES Final Result Performing Organization Address [facility] Co de Phone Number [facility] * POCT glucose (09/13/2024 4:29 PM CLINIC MD ASSOCIATE) Glucose, POC 160 70 - 199 mg/dL Comment: For Glucose values <35 mg/dl when Hematocrit is >60 mg/dl,the test may not accurately detect significant hypoglycemia,and testing in the Laboratory should be considered if clinically indicated. Blood 09/13/2024 4:29 PM CLINIC MD ASSOCIATE 09/13/2024 4:29 PM CLINIC MD ASSOCIATE Flo Villagran MD LAB POCT ORDERABLES - DEVICE Final Result Performing Organization Address [facility] de Phone Number [facility] [address] [place] [address] * POCT glucose (09/13/2024 3:18 PM CLINIC MD ASSOCIATE) Pathologist [facility] Glucose, POC 92 70 - 199 mg/dL Comment: For Glucose values <35 mg/dl when Hematocrit is >60 mg/dl,the test may not accurately detect significant hypoglycemia,and testing in the Laboratory should be considered if clinically indicated. Blood 09/13/2024 3:18 PM CLINIC MD ASSOCIATE 09/13/2024 3:18 PM CLINIC MD ASSOCIATE Flo Villagran MD LAB POCT ORDERABLES - DEVICE Final Result Performing Organization Address [facility] Co de Phone Number [facility] [address] [place] [address] * POCT glucose (09/13/2024 2:29 PM CLINIC MD ASSOCIATE) Glucose, POC 102 70 - 199 mg/dL Comment: For Glucose values <35 mg/dl when Hematocrit is >60 mg/dl,the test may not accurately detect significant hypoglycemia,and testing in the Laboratory should be considered if clinically indicated. Blood 09/13/2024 2:29 PM CLINIC MD ASSOCIATE 09/13/2024 2:29 PM CLINIC MD ASSOCIATE Flo Villagran MD LAB POCT ORDERABLES - DEVICE Final Result Performing Organization Address [facility] de Phone Number [facility] [address] [facility] [place], [place] [phone] * (ABNORMAL) aPTT (09/13/2024 2:28 PM CLINIC MD ASSOCIATE) [facility] aPTT 102(H) 28 - 38 sec Comment: Interpretive Data Heparin therapeutic range: 66.0 - 100.0 seconds. Range based on correlation with therapeutic heparin activity range of 0.3 - 0.7 Units/mL. Current interpretive data was last revised on 2023. Blood 09/13/2024 2:28 PM CLINIC MD ASSOCIATE 09/13/2024 2:36 PM CLINIC MD ASSOCIATE Result [facility] Flo Villagran MD LAB BLOOD ORDERABLES Final R esult Performing Organization Address [facility] de Phone Number [facility] [address] [place] [address] * POCT glucose (09/13/2024 1:10 PM CLINIC MD ASSOCIATE) Glucose, POC 117 70 - 199 mg/dL Comment: For Glucose values <35 mg/dl when Hematocrit is >60 mg/dl,the test may not accurately detect significant hypoglycemia,and testing in the Laboratory should be considered if clinically indicated. Blood 09/13/2024 1:10 PM CLINIC MD ASSOCIATE 09/13/2024 1:10 PM CLINIC MD ASSOCIATE Flo Villagran MD LAB POCT ORDERABLES - DEVICE Final Result Performing Organization Address [facility] Co de Phone Number [facility] [address] [place] [address] * (ABNORMAL) eGFR (09/13/2024 12:22 PM CLINIC MD ASSOCIATE) eGFR 46(L) >=60 mL/min/1. 73 m2 Comment: [...] reviewed 2021. Blood 09/13/2024 12:2 2 PM CLINIC MD ASSOCIATE 09/13/2024 12:40 PM CLINIC MD ASSOCIATE us Abeba Ash MD LAB BLOOD ORDERABLES Final R esult Performing Organization Address [facility] Co de Phone Number [facility] [address] [place] [address] * Phosphorus (09/13/2024 12:22 PM CLINIC MD ASSOCIATE) Pathologist [facility] Phosphorus, pl 2.3 2.3 - 4.5 mg/dL Blood 09/13/2024 12:2 2 PM CLINIC MD ASSOCIATE 09/13/2024 12:40 PM CLINIC MD ASSOCIATE Abeba Ash MD LAB BLOOD ORDERABLES Final R esult Performing Organization Address [facility]/State/ZIP Co de Phone Number [facility] [address] [place] Department [place] [address] * Magnesium (09/13/2024 12:22 PM CLINIC MD ASSOCIATE) Pathologist [facility] Magnesium 1.9 1.4 - 2.5 mg/dL Blood 09/13/2024 12:2 2 PM CLINIC MD ASSOCIATE 09/13/2024 12:40 PM CLINIC MD ASSOCIATE Abeba Ash MD LAB BLOOD ORDERABLES Final R esult [facility] [address] [place] [address] * (ABNORMAL) Basic metabolic panel (09/13/2024 12:22 PM CLINIC MD ASSOCIATE) [facility] Sodium 146(H) 135 - 145 mmol/L Potassium, pl 3.5 3.3 - 4.9 mmol/L [facility] Chloride 111(H) 97 - 110 mmol/L [facility] CO2 22 22 - 32 mmol/L [facility] Anion gap 13 2 - 15 mmol/L [facility] BUN 47(H) 6 - 25 mg/dL [facility] Creatinine 1.41(H) 0.60 - 1.10 mg/dL [facility] Glucose 141 70 - 199 mg/dL [facility] Comment: Interpretive Data Fasting glucose >/= [...] 2022. Calcium 8.6 8.5 - 10.3 mg/dL [facility] Blood 09/13/2024 12:2 2 PM CLINIC MD ASSOCIATE 09/13/2024 12:40 PM CLINIC MD ASSOCIATE Abeba Ash MD LAB BLOOD ORDERABLES Final R esult Performing Organization Address [facility] Co de Phone Number [facility] [address] [place] [address] * POCT glucose (09/13/2024 12:20 PM CLINIC MD ASSOCIATE) [facility] Signature Glucose, POC 142 70 - 199 mg/dL Comment: For Glucose values <35 mg/dl when Hematocrit is >60 mg/dl,the test may not accurately detect significant hypoglycemia,and testing in the Laboratory should be considered if clinically indicated. Blood 09/13/2024 12:2 0 PM CLINIC MD ASSOCIATE 09/13/2024 12:20 PM CLINIC MD ASSOCIATE Flo Villagran MD LAB POCT ORDERABLES - DEVICE Final Result Performing Organization Address [facility] Co de Phone Number [facility] [address] [place] [address] * US Carotids Duplex Bilateral (09/13/2024 11:55 AM CLINIC MD ASSOCIATE) Anatomical Region Laterality Modality Vascular Bilateral Ultrasound 09/13/2024 12:3 7 PM CLINIC MD ASSOCIATE Impressions 09/13/2024 12:37 PM CLINIC MD ASSOCIATE 1) There are minimal non-hemodynamic plaque formations [...] Kwaku Tolentino M.D. Narrative 09/13/2024 12:37 PM CLINIC MD ASSOCIATE DATE:09/13/2024 10:00 AM EXAM: Duplex imaging of [...] W DOPPLER/CF W CONTRAST (09/13/2024 11:24 AM CLINIC MD ASSOCIATE) LV EF 45-50 % CONS SCIMAGE Anatomical Region Laterality Modality Ultrasound 09/13/2024 10:2 8 AM CLINIC MD ASSOCIATE Narrative 09/13/2024 4:50 PM CLINIC MD ASSOCIATE [facility] [address] [place] [address] ECHOCARDIOGRAM Patient Name: BROOKE MARSHALL R : 1975 (48y 8m) Gender: F Study Date: 09/13/2024 10:28:21 AM Ht(Inch): 65 Wt(Lb): 201.94 BSA: 2.05 Signals Officer: MINH Location: [address] Order Provider: ABEBA ASH BMI: 33.6 BP: 111/63 Ref Provider: ABEBA ASH - PROCEDURES: Echocardiographic Report: Transthoracic Echocardiogram with 2D, M-Mode, Spectral and Color Flow Doppler examination and administration of intravenous contrast. INDICATIONS: Non ST elevation LA. MEASUREMENTS: 2D/MM Value Range Doppler Value Range [...] [ 0.10 - 0.15 ] Sept E' Ytler 0.14 m/s [ 0.08 - 0.15 ] [...] By: Rene Nicole MD 09/13/2024 4:49:40 PM CLINIC MD ASSOCIATE Procedure Note Rene Nicole MD - 09/13/2024 [facility] [place] [address] ECHOCARDIOGRAM Patient Name: BROOKE MARSHALL R : 1975 (48y 8m) Gender: F Study Date: 09/13/2024 10:28:21 AM Ht(Inch): 65 Wt(Lb): 201.94 BSA: 2.05 Signals Officer: MINH Location: [id number] Order Provider: ABEBA ASH BMI: 33.6 BP: 111/63 Ref Provider: ABEBA ASH - PROCEDURES: Echocardiographic Report: Transthoracic Echocardiogram with 2D, M-Mode,Spectral and Color Flow Doppler examination and administration of intravenouscontrast. INDICATIONS: Non ST elevation LA. MEASUREMENTS: 2D/MM Value Range DopplerValue Range IVSd [...] PV Peak PG 5 mmHg Lat E` Ytler 0.11 m/s [ 0.10 - 0.15 ] [...] By: Rene Nicole MD 09/13/2024 4:49:40 PM CLINIC MD ASSOCIATE us Abeba Ash MD CV ECHO PROCEDURES Final Res ult * POCT glucose (09/13/2024 11:12 AM CLINIC MD ASSOCIATE) [facility] Glucose, POC 149 70 - 199 mg/dL Comment: For Glucose values <35 mg/dl when Hematocrit is >60 mg/dl,the test may not accurately detect significant hypoglycemia,and testing in the Laboratory should be considered if clinically indicated. Blood 09/13/2024 11:1 2 AM CLINIC MD ASSOCIATE 09/13/2024 11:12 AM CLINIC MD ASSOCIATE Flo Villagran MD LAB POCT ORDERABLES - DEVICE Final Result Performing Organization Address [facility] Co de Phone Number [facility] [address] [employer] [place] [address] * (ABNORMAL) DIC Platelet (09/13/2024 9:45 AM CLINIC MD ASSOCIATE) [facility] Plt 96(L) 150 - 400 K/cumm Blood 09/13/2024 9:45 AM CLINIC MD ASSOCIATE 09/13/2024 10:14 AM CLINIC MD ASSOCIATE Flo Villagran MD LAB BLOOD ORDERABLES Final R esult Performing Organization Address [facility] Co de Phone Number [facility] [address] [place], [place] [id number] * (ABNORMAL) DIC Coagulation (09/13/2024 9:45 AM CLINIC MD ASSOCIATE) [facility] PT DIC 10.3 10.3 - 13.7 sec INR DIC 0.95 0.90 - 1.20 [facility] PTT DIC 78(H) 28 - 38 sec [facility] Comment: Interpretive Data Heparin therapeutic range: 66.0 - 100.0 seconds. Range based on correlation with therapeutic heparin activity range of 0.3 - 0.7 Units/mL. Current interpretive data was last revised on 2023. D-Dimer 2,217(H) <=499 ng/mL FEU [facility] Comment: Interpretive data FDA approved the [...] Fibrinogen 620(H) 170 - 400 mg/dL [facility] Blood 09/13/2024 9:45 AM CLINIC MD ASSOCIATE 09/13/2024 10:14 AM CLINIC MD ASSOCIATE Flo Villagran MD LAB BLOOD ORDERABLES Final R esult Performing Organization Address [facility] Co de Phone Number [facility] [address] Department [employer] [place] [address] * HIT Antibodies with Reflex to Serotonin Release Assay (ASHLEY) (09/13/2024 9:45 AM CLINIC MD ASSOCIATE) Pathologist [facility] HIT antibodies Negative Negative Comment: INTERPRETIVE DATA A result of >/= 1.0 U/mL is interpreted as Heparin/anti-PF4 antibody positive. A result of < 1.0 U/mL is interpreted as Heparin/anti-PF4 antibody negative. Although a positive result may indicate the presence of Heparin-associated antibodies, it does not CONFIRM the diagnosis of Heparin Induced Thrombocytopenia (HIT). Positive specimens will be sent to [facility] ([facility]) for confirmatory testing by Serotonin Release Assay (ASHLEY). Current interpretive data last reviewed 2017 Blood 09/13/2024 9:45 AM CLINIC MD ASSOCIATE 09/13/2024 10:14 AM CLINIC MD ASSOCIATE Flo Villagran MD LAB BLOOD ORDERABLES Final R esult Performing Organization Address City/[facility]/ZIP Co de Phone Number [facility] [address] [place] [address] * DIC Schistocytes (09/13/2024 9:45 AM CLINIC MD ASSOCIATE) Schistocytes None Seen None Seen Blood 09/13/2024 9:45 AM CLINIC MD ASSOCIATE 09/13/2024 10:14 AM CLINIC MD ASSOCIATE us Flo Villagran MD LAB BLOOD ORDERABLES Final R esult Performing Organization Address City/[facility]/ZIP Co de Phone Number [facility] [address] Department [place] [address] * (ABNORMAL) Urinalysis reflex to microscopic and culture Urine (09/13/2024 9:45 AM CLINIC MD ASSOCIATE) Color, ur Yellow Yellow Clarity, ur Turbid(A) Clear [facility] Specific gravity, ur 1.020 1.003 - 1.030 [facility] pH, urine 6.0 [facility] Comment: Interpretive Data U rine pH is affected by diet, medications, systemic acid-base disturbances, and renal tubular function. pH may affect urinary stone formation. For example, urine pH below 6.0 may help reduce the tendency for calcium phosphate stones and pH greater than 6.0 may reduce the tendency for uric acid stone formation. Source: [facility] Current Interpretive Data was last revised on 2017 Protein, ur ql 2+(A) Negative [facility] Glucose, ur ql 3+(A) Negative [facility] Ketones, ur Trace Negative [facility] Bilirubin, ur Negative Negative [facility] Blood, ur 1+(A) Negative [facility] Urobilinogen, ur <2.0 <2.0 mg/dL [facility] Nitrite, ur Negative Negative [facility] Leukocyte esterase, ur 4+(A) Negative [facility] UA reflex comment Reflex to microscopic UA will be performed. [facility] Urine 09/13/2024 9:45 AM CLINIC MD ASSOCIATE 09/13/2024 9:45 AM CLINIC MD ASSOCIATE Flo Villagran MD LAB MICROBIOLOGY - GENERAL O RDERABLES Final Result Performing Organization Address [facility]/ZIP Co de Phone Number [facility] [address] Department [place] [address] * (ABNORMAL) Drugs of Abuse Screen, Urine without Confirmation (09/13/2024 9:45 AM CLINIC MD ASSOCIATE) Amphetamine, ur Not Detected [facility] 500ng/mL Comment: Interpretive Data - Amphetamines: Samples containing greater than 500 ng/mL d-methamphetamine or other cross-reacting amphetamine compounds are reported as positive. Amphetamine immunoassays are subject to significant false positive rates due to cross-reactivity of non-amphetamine drugs. Confirmatory testing required for definitive results. Current Interpretive Data was last reviewed 2023. Barbiturates, ur Not Detected CutOff 200ng/mL [facility] Comment: Interpretive Data - Barbiturates: Samples containing greater than 200 ng/mL secobarbital or other cross-reacting barbiturate compounds are reported as positive. False positive and false negative results are possible. Confirmatory testing required for definitive results. Current Interpretive Data was last reviewed 2023. Benzodiazepines, ur Not Detected CutOff 100ng/mL [facility] Comment: Interpretive Data - Benzodiazepines: Samples containing greater than 100 ng/mL nordiazepam or other cross-reacting compounds are reported as positive. False positive and false negative results are possible. Confirmatory testing required for definitive results. Current Interpretive Data was last reviewed 2023. Cannabinoids, ur Not Detected CutOff 50 ng/mL [facility] Comment: Interpretive Data - Cannabinoids: Samples containing greater than 50 ng/mL delta-9 THC -COOH or other cross- reacting compounds are reported as positive. False positive and false negative results are possible. Confirmatory testing required for definitive results. Current Interpretive Data was last reviewed 2023. Cocaine, ur Not Detected CutOff 150ng/mL [facility] Comment: Interpretive Data - Cocaine: Samples containing greater than 150 ng/mL benzoylecgonine or other cross- reacting compounds are reported as positive. False positive and false negative results are possible. Confirmatory testing required for definitive results. Current Interpretive Data was last reviewed 2023. Fentanyl, Ur Screen Positive, presumptive (A) CutOff 5 ng/mL [facility] Comment: Interpretive Data - Fentanyl: Samples containing greater than 5 ng/mL norfentanyl, fentanyl, or other cross-reacting fentanyl compounds are reported as positive. False positive and false negative results are possible. Confirmatory testing required for definitive results. Current Interpretive Data was last reviewed 2023. Methadone, ur Not Detected CutOff 300ng/mL [facility] Comment: Interpretive Data - Methadone: Samples containing greater than 300 ng/mL d,l-methadone or other cross-reacting compounds are reported as positive. False positive and false negative results are possible. Confirmatory testing required for definitive results. Current Interpretive Data was last reviewed 2023. Opiates, ur Screen Positive, presumptive (A) CutOff 300ng/mL [facility] Comment: Interpretive Data - Opiates: Samples containing greater than 300 ng/mL morphine or other cross-reacting compounds are reported as positive. False positive and false negative results are possible. Confirmatory testing required for definitive results. Current Interpretive Data was last reviewed 2023. Oxycodone, ur Not Detected CutOff 100ng/mL [facility] Comment: Interpretive Data - Oxycodone: Samples containing greater than 100 ng/mL oxycodone or other cross-reacting compounds are reported as positive. False positive and false negative results are possible. Confirmatory testing required for definitive results. Current Interpretive Data was last reviewed 2023. Phencyclidine, ur Not Detected CutOff 25 ng/mL [facility] Comment: Interpretive Data - Phencyclidine: Samples containing greater than 25 ng/mL phencyclidine or other cross-reacting compounds are reported as positive. False positive and false negative results are possible. Confirmatory testing required for definitive results. Current Interpretive Data was last reviewed 2023. Urine Creatinine 90 mg/dL [facility] Comment: Interpretive Data Urine Creatinine: < 10 mg/dL is extremely dilute = or > 10 but < 20 mg/dL is dilute = or > 20 mg/dL is normal Current Interpretive Data was last revised on 2017. Urine 09/13/2024 9:45 AM CLINIC MD ASSOCIATE 09/13/2024 10:17 AM CLINIC MD ASSOCIATE Narrative [facility] - 09/13/2024 10:46 AM CLINIC MD ASSOCIATE Drug of Abuse screening is performed by immunoassay for medical purposes only. This is not to be used for Pain Management purposes. Flo Villagran MD LAB URINE ORDERABLES Final R esult Performing Organization Address [facility] Co de Phone Number [facility] [address] [facility] [place] [address] * (ABNORMAL) Urinalysis, microscopic only (09/13/2024 9:45 AM CLINIC MD ASSOCIATE) WBC, ur >50(A) 0 - 5 /HPF RBC, ur >50(A) 0 - 2 /HPF [facility] Epithelial cells, squamous, ur >50(A) 0 - 5 /HPF [facility] Comment:Suggestive of contam ination. Consider recollection by clean catch. Bacteria, ur 4+(A) [facility] Yeast, ur 4+(A) [facility] Mucous, ur Present(A) [facility] Culture Reflex Comment Reflex to urine culture will be performed. [facility] Urine 09/13/2024 9:45 AM CLINIC MD ASSOCIATE 09/13/2024 10:17 AM CLINIC MD ASSOCIATE Flo Villagran MD LAB URINE ORDERABLES Final R esult Performing Organization Address [facility] Co de Phone Number [facility] [address] [facility] [place] [address] * (ABNORMAL) Urine culture Urine (09/13/2024 9:45 AM CLINIC MD ASSOCIATE) Report Final Report: Greater than or equal to 100,000 colonies/ml of Lactobacillus species Susceptibility not performed on this isolate (.) Organism LACTOBACILLUS SPECIES [facility] Urine 09/13/2024 9:45 AM CLINIC MD ASSOCIATE 09/13/2024 11:49 AM CLINIC MD ASSOCIATE Narrative [facility] - 09/15/2024 12:40 PM CLINIC MD ASSOCIATE Urine culture reflexed based upon urinalysis results. Flo Villagran MD LAB MICROBIOLOGY - GENERAL O RDERABLES Final Result Performing Organization Address [facility] Co de Phone Number [facility] [address] [facility] [place] [address] * Ammonia (09/13/2024 9:45 AM CLINIC MD ASSOCIATE) [facility] Ammonia 14 <=50 mcmol/L Blood 09/13/2024 9:45 AM CLINIC MD ASSOCIATE 09/13/2024 10:14 AM CLINIC MD ASSOCIATE Flo Villagran MD LAB BLOOD ORDERABLES Final R esult Performing Organization Address [facility] Co de Phone Number [facility] [address] [facility] [place] [address] * POCT glucose (09/13/2024 9:31 AM CLINIC MD ASSOCIATE) [facility] Glucose, POC 170 70 - 199 mg/dL Comment: For Glucose values <35 mg/dl when Hematocrit is >60 mg/dl,the test may not accurately detect significant hypoglycemia,and testing in the Laboratory should be considered if clinically indicated. Blood 09/13/2024 9:31 AM CLINIC MD ASSOCIATE 09/13/2024 9:31 AM CLINIC MD ASSOCIATE Abeba Ash MD LAB POCT ORDERABLES - DEVICE Final Result Performing Organization Address [facility] de Phone Number [facility] [address] [facility] [place] [address] * Lipase - Add on lab test (09/13/2024 9:25 AM CLINIC MD ASSOCIATE) [facility] Acceptable Yes Blood 09/13/2024 9:25 AM CLINIC MD ASSOCIATE 09/13/2024 9:25 AM CLINIC MD ASSOCIATE Narrative [facility] - 09/13/2024 9:26 AM CLINIC MD ASSOCIATE Name of Test->Lipase Flo Villagran MD LAB BLOOD ORDERABLES Final R esult Performing Organization Address [facility] Co de Phone Number [facility] [address] [facility] [place] [address] * Amylase - Add on lab test (09/13/2024 9:25 AM CLINIC MD ASSOCIATE) Acceptable Yes Blood 09/13/2024 9:25 AM CLINIC MD ASSOCIATE 09/13/2024 9:25 AM CLINIC MD ASSOCIATE Narrative [facility] - 09/13/2024 9:26 AM CLINIC MD ASSOCIATE Name of Test->Amylase Flo Villagran MD LAB BLOOD ORDERABLES Final R esult [facility] [address] Department [place] [address] * XR Chest 1 Vw (09/13/2024 8:30 AM CLINIC MD ASSOCIATE) Anatomical Region Laterality Modality Body, Chest N/A Computed Radiogr aphy 09/13/2024 9:34 AM CLINIC MD ASSOCIATE Impressions 09/13/2024 9:34 AM CLINIC MD ASSOCIATE Gastric tube tip overlies the gastric body, side port overlies the gastric antrum, possibly kinked at the side port. Patchy left retrocardiac opacities could reflect atelectasis, aspiration, or pneumonia. No pneumothorax or pleural effusion. Heart size and mediastinal contours normal Electronically signed by: Ana Luisa Benson M.D. Narrative 09/13/2024 9:34 AM CLINIC MD ASSOCIATE EXAMINATION: Chest 1 view. HISTORY: Check tube [...] lt * (ABNORMAL) eGFR (09/13/2024 8:11 AM CLINIC MD ASSOCIATE) eGFR 46(L) >=60 mL/min/1. 73 m2 Comment: [...] last reviewed 2021. Blood 09/13/2024 8:11 AM CLINIC MD ASSOCIATE 09/13/2024 8:21 AM CLINIC MD ASSOCIATE us Abeba Ash MD LAB BLOOD ORDERABLES Final R esult Performing Organization Address City/[facility] Co de Phone Number [facility] [address] [place] [address] * Beta-hydroxybutyrate (09/13/2024 8:11 AM CLINIC MD ASSOCIATE) Pathologist [facility] Beta-Hydroxybut yrate 0.5 <=0.5 mmol/L Blood 09/13/2024 8:11 AM CLINIC MD ASSOCIATE 09/13/2024 8:16 AM CLINIC MD ASSOCIATE Abeba Ash MD LAB BLOOD ORDERABLES Final R esult Performing Organization Address City/[facility]/ZIP Co de Phone Number [facility] [address] [place] [address] * (ABNORMAL) aPTT (09/13/2024 8:11 AM CLINIC MD ASSOCIATE) Pathologist [facility] aPTT 72(H) 28 - 38 sec Comment: Interpretive Data Heparin therapeutic range: 66.0 - 100.0 seconds. Range based on correlation with therapeutic heparin activity range of 0.3 - 0.7 Units/mL. Current interpretive data was last revised on 2023. Blood 09/13/2024 8:11 AM CLINIC MD ASSOCIATE 09/13/2024 8:21 AM CLINIC MD ASSOCIATE Abeba Ash MD LAB BLOOD ORDERABLES Final R esult [facility] [address] [facility] [place], [place] [id number] * (ABNORMAL) Phosphorus (09/13/2024 8:11 AM CLINIC MD ASSOCIATE) [facility] Phosphorus, pl 2.1(L) 2.3 - 4.5 mg/dL Blood 09/13/2024 8:11 AM CLINIC MD ASSOCIATE 09/13/2024 8:16 AM CLINIC MD ASSOCIATE Abeba Ash MD LAB BLOOD ORDERABLES Final R esult Performing Organization Address [facility] Co de Phone Number [facility] [address] [facility] [place] [address] * Magnesium (09/13/2024 8:11 AM CLINIC MD ASSOCIATE) [facility] Magnesium 1.9 1.4 - 2.5 mg/dL Blood 09/13/2024 8:11 AM CLINIC MD ASSOCIATE 09/13/2024 8:16 AM CLINIC MD ASSOCIATE Abeba Ash MD LAB BLOOD ORDERABLES Final R esult Performing Organization Address City/[facility] Co de Phone Number [facility] [address] [facility] [place] [address] * Lipase (09/13/2024 8:11 AM CLINIC MD ASSOCIATE) [facility] Lipase 25 10 - 99 Units/L Blood 09/13/2024 8:1 1 AM CLINIC MD ASSOCIATE 09/13/2024 8:21 AM CLINIC MD ASSOCIATE Abeba Ash MD LAB BLOOD ORDERABLES Final R esult Performing Organization Address [facility] Co de Phone Number [facility] [address] [facility] [place] [address] * Amylase (09/13/2024 8:11 AM CLINIC MD ASSOCIATE) Pathologist [facility] Amylase 48 30 - 99 Units/L Blood 09/13/2024 8:11 AM CLINIC MD ASSOCIATE 09/13/2024 8:21 AM CLINIC MD ASSOCIATE Abeba Ash MD LAB BLOOD ORDERABLES Final R esult Performing Organization Address [facility] de Phone Number [facility] [address] [facility] [place] [address] * (ABNORMAL) Basic metabolic panel (09/13/2024 8:11 AM CLINIC MD ASSOCIATE) Pathologist [facility] Sodium 147(H) 135 - 145 mmol/L Potassium, pl 3.7 3.3 - 4.9 mmol/L [facility] Chloride 112(H) 97 - 110 mmol/L [facility] CO2 21(L) 22 - 32 mmol/L [facility] Anion gap 14 2 - 15 mmol/L [facility] BUN 49(H) 6 - 25 mg/dL [facility] Creatinine 1.40(H) 0.60 - 1.10 mg/dL [facility] Glucose 147 70 - 199 mg/dL [facility] Comment: Interpretive Data Fasting glucose >/= [...] 2022. Calcium 8.6 8.5 - 10.3 mg/dL [facility] Blood 09/13/2024 8:11 AM CLINIC MD ASSOCIATE 09/13/2024 8:16 AM CLINIC MD ASSOCIATE us Abeba Ash MD LAB BLOOD ORDERABLES Final R esult Performing Organization Address City/[facility]/ZIP Co de Phone Number [facility] [address] Department [place] [address] * (ABNORMAL) Blood gas, arterial (09/13/2024 7:58 AM CLINIC MD ASSOCIATE) pH, Art 7.38 7.35 - 7.45 PCO2, Arterial 39 35 - 45 mmHg [facility] PO2, Arterial 76(L) 83 - 108 mmHg [facility] HCO3 Art (Calculated) 23 20 - 30 mmol/L [facility] BE, art -2 mmol/L [facility] Comment: Interpretive Data No Reference Range Established Current Interpretive Data was last revised on 2017 O2 Sat Art (Calculated) 95 94 - 98 % [facility] Blood 09/13/2024 7:58 AM CLINIC MD ASSOCIATE 09/13/2024 8:02 AM CLINIC MD ASSOCIATE us Flo Villagran MD LAB BLOOD ORDERABLES Final R esult Performing Organization Address City/[facility]/ZIP Co de Phone Number [facility] [address] [place] [address] * POCT glucose (09/13/2024 7:54 AM CLINIC MD ASSOCIATE) Glucose, POC 157 70 - 199 mg/dL Comment: For Glucose values <35 mg/dl when Hematocrit is >60 mg/dl,the test may not accurately detect significant hypoglycemia,and testing in the Laboratory should be considered if clinically indicated. Blood 09/13/2024 7:54 AM CLINIC MD ASSOCIATE 09/13/2024 7:54 AM CLINIC MD ASSOCIATE us Abeba Ash MD LAB POCT ORDERABLES - DEVICE Final Result Performing Organization Address [facility] Co de Phone Number [facility] [address] [place] [place] [address] * POCT glucose (09/13/2024 6:04 AM CLINIC MD ASSOCIATE) Pathologist [facility] Glucose, POC 149 70 - 199 mg/dL Comment: For Glucose values <35 mg/dl when Hematocrit is >60 mg/dl,the test may not accurately detect significant hypoglycemia,and testing in the Laboratory should be considered if clinically indicated. Blood 09/13/2024 6:04 AM CLINIC MD ASSOCIATE 09/13/2024 6:04 AM CLINIC MD ASSOCIATE Abeba Ash MD LAB POCT ORDERABLES - DEVICE Final Result Performing Organization Address [facility] Co de Phone Number [facility] [address] [facility] [place] [address] * (ABNORMAL) Blood culture Blood (09/13/2024 5:22 AM CLINIC MD ASSOCIATE) [facility] Direct Specimen Exam Molecular Analysis: Staphylococcus aureus, methicillin-suscep tible (MSSA) detected by the [employer] Blood Culture Identification Panel. This test does not exclude the possibility of a mixed bacterial infection. Please consider this result in the context of clinical findings and evaluate the possibility of antimicrobial de-escalation. Test result called to and read back by Ceferino Grier RN on 09/13/2024 22:28:52 by [email or web address] Direct Specimen Exam Stain: Gram Positive Cocci in clusters [facility] Report Final Report: Staphylococcus aureus, methicillin susceptible (.) [facility] Organism STAPHYLOCOCCUS AUREUS, METHICILLIN SUSCEPTIBLE [facility] Blood 09/13/2024 5:22 AM CLINIC MD ASSOCIATE 09/13/2024 5:48 AM CLINIC MD ASSOCIATE Narrative [facility] - 09/15/2024 7:42 AM CLINIC MD ASSOCIATE From a different site than #1. Collection->Peripheral [...] organism identification may be performed using the [employer] Blood Culture Identification panel. This assay detects microbial DNA in a blood culture broth. This assay has been cleared by the [place] Food and Drug Administration and its performance characteristics have been verified by the [facility]. Interpretive data was last revised [...] O RDERABLES Final Result Performing Organization Address [facility]/ZIP Co de Phone Number [facility] [address] [place] [address] * POCT glucose (09/13/2024 5:06 AM CLINIC MD ASSOCIATE) Glucose, POC 152 70 - 199 mg/dL Comment: For Glucose values <35 mg/dl when Hematocrit is >60 mg/dl,the test may not accurately detect significant hypoglycemia,and testing in the Laboratory should be considered if clinically indicated. Blood 09/13/2024 5:06 AM CLINIC MD ASSOCIATE 09/13/2024 5:06 AM CLINIC MD ASSOCIATE Abeba Ash MD LAB POCT ORDERABLES - DEVICE Final Result Performing Organization Address [facility]/ZIP Co de Phone Number [facility] [address] [place] [address] * POCT glucose (09/13/2024 4:05 AM CLINIC MD ASSOCIATE) Glucose, POC 189 70 - 199 mg/dL Comment: For Glucose values <35 mg/dl when Hematocrit is >60 mg/dl,the test may not accurately detect significant hypoglycemia,and testing in the Laboratory should be considered if clinically indicated. Blood 09/13/2024 4:05 AM CLINIC MD ASSOCIATE 09/13/2024 4:05 AM CLINIC MD ASSOCIATE us Abeba Ash MD LAB POCT ORDERABLES - DEVICE Final Result [facility] [address] Department [place] [address] * CT Head WO Contrast (09/13/2024 3:40 AM CLINIC MD ASSOCIATE) Anatomical Region Laterality Modality Head and Neck N/A Computed Tomogra phy 09/13/2024 3:31 AM CLINIC MD ASSOCIATE Addenda Addendum by Zion Rodriguez MD on 09/13/2024 7:20 AM CLINIC MD ASSOCIATE The Non Critical results were discussed with Dr. Flo Villagran by Wei Godinez, Industrial Engineering Professor on 09/13/2024 at 7:16 Edited by: Wei Godinez Electronically signed by: Zion Rodriguez M.D. Impressions 09/13/2024 6:55 AM CLINIC MD ASSOCIATE 1. Small lucency in the right thalamus suspicious for age indeterminate lacunar infarct, new compared to CT 09/22/2021. If there is concern for acute infarct further evaluation can be made with MRI. 2. Otherwise no CT evidence of acute intracranial abnormality. 3. Hyperdense material in the right globe likely intraocular silicone and postoperative in nature. Correlate with history. For the purposes of it quality analyst, this study was initially interpreted by teleradiology. There is a non-emergent discrepancy that does not immediately impact patient care. Electronically signed by: Zion Rodriguez M.D. Narrative 09/13/2024 6:55 AM CLINIC MD ASSOCIATE EXAM:CT HEAD WO CONTRAST INDICATION: Right pupil [...] Correlate with history. For the purposes of it quality analyst, this study was initially interpreted by teleradiology. There is a non-emergent discrepancy that does not immediately impact patient care. Electronically signed by: Zion Rodriguez M.D. Abeba Ash MD IMG CT PROCEDURES Edited Res ult - Final * (ABNORMAL) POCT glucose (09/13/2024 3:15 AM CLINIC MD ASSOCIATE) Glucose, POC 283(H) 70 - 199 mg/dL Comment: For Glucose values <35 mg/dl when Hematocrit is >60 mg/dl,the test may not accurately detect significant hypoglycemia,and testing in the Laboratory should be considered if clinically indicated. Blood 09/13/2024 3:15 AM CLINIC MD ASSOCIATE 09/13/2024 3:15 AM CLINIC MD ASSOCIATE us Abeba Ash MD LAB POCT ORDERABLES - DEVICE Final Result [facility] [address] Department [place] [address] * (ABNORMAL) Urinalysis reflex to microscopic and culture Urine (09/13/2024 2:59 AM CLINIC MD ASSOCIATE) Color, ur Yellow Yellow Clarity, ur Turbid(A) Clear [facility] Specific gravity, ur 1.016 1.003 - 1.030 [facility] pH, urine 5.5 [facility] Comment: Interpretive Data U rine pH is affected by diet, medications, systemic acid-base disturbances, and renal tubular function. pH may affect urinary stone formation. For example, urine pH below 6.0 may help reduce the tendency for calcium phosphate stones and pH greater than 6.0 may reduce the tendency for uric acid stone formation. Source: [facility] Current Interpretive Data was last revised on 2017 Protein, ur ql 1+(A) Negative [facility] Glucose, ur ql 4+(A) Negative [facility] Ketones, ur 2+(A) Negative [facility] Bilirubin, ur Negative Negative [facility] Blood, ur Trace(A) Negative [facility] Urobilinogen, ur <2.0 <2.0 mg/dL [facility] Nitrite, ur Negative Negative [facility] Leukocyte esterase, ur 4+(A) Negative [facility] UA reflex comment Reflex to microscopic UA will be performed. [facility] Urine 09/13/2024 2:59 AM CLINIC MD ASSOCIATE 09/13/2024 3:04 AM CLINIC MD ASSOCIATE Abeba Ash MD LAB MICROBIOLOGY - GENERAL O RDERABLES Final Result Performing Organization Address [facility] Co de Phone Number [facility] [address] [facility] [place] [address] * (ABNORMAL) Urinalysis, microscopic only (09/13/2024 2:59 AM CLINIC MD ASSOCIATE) WBC, ur 21-50(A) 0 - 5 /HPF RBC, ur >50(A) 0 - 2 /HPF [facility] Epithelial cells, squamous, ur 6-10(A) 0 - 5 /HPF [facility] Comment:Suggestive of contam ination. Consider recollection by clean catch. Bacteria, ur 4+(A) [facility] Culture Reflex Comment Reflex to urine culture will be performed. [facility] Urine 09/13/2024 2:59 AM CLINIC MD ASSOCIATE 09/13/2024 3:32 PM CLINIC MD ASSOCIATE Abeba Ash MD LAB URINE ORDERABLES Final R esult Performing Organization Address [facility] Co de Phone Number [facility] [address] [facility] [place], [place] [address] * (ABNORMAL) Urine culture Urine (09/13/2024 2:59 AM CLINIC MD ASSOCIATE) Report Final Report: Greater than or equal to 100,000 colonies/ml of Lactobacillus species Susceptibility not performed on this isolate (.) Organism LACTOBACILLUS SPECIES [facility] Urine 09/13/2024 2:59 AM CLINIC MD ASSOCIATE 09/13/2024 3:41 PM CLINIC MD ASSOCIATE Narrative [facility] - 09/14/2024 12:08 PM CLINIC MD ASSOCIATE Urine culture reflexed based upon urinalysis results. Abeba Ash MD LAB MICROBIOLOGY - GENERAL O RDERABLES Final Result Performing Organization Address [facility] Co de Phone Number [facility] [address] Department [place], [place] [id number] * (ABNORMAL) POCT glucose (09/13/2024 2:03 AM CLINIC MD ASSOCIATE) [facility] Glucose, POC 260(H) 70 - 199 mg/dL Comment: For Glucose values <35 mg/dl when Hematocrit is >60 mg/dl,the test may not accurately detect significant hypoglycemia,and testing in the Laboratory should be considered if clinically indicated. Blood 09/13/2024 2:03 AM CLINIC MD ASSOCIATE 09/13/2024 2:03 AM CLINIC MD ASSOCIATE Abeba Ash MD LAB POCT ORDERABLES - DEVICE Final Result Performing Organization Address City/[facility]/ZIP Co de Phone Number [facility] [address] Department [place] [address] * ECG 12 lead (09/13/2024 1:58 AM CLINIC MD ASSOCIATE) 09/13/2024 1:58 AM CLINIC MD ASSOCIATE Narrative [facility] - 09/13/2024 9:32 PM CLINIC MD ASSOCIATE Vent Rate: 134 bpm RR Interval: 445 msec NH Interval: 118 msec QRS Duration: 87 msec QT Interval: 331 msec QTC Interval: 410 msec P-R-T [place]: 66 - -15 - 124 degrees IMPRESSION: SINUS TACHYCARDIA WITH SHORT NH INTERVAL ST DEVIATION AND MODERATE T-WAVE ABNORMALITY, CONSIDER LATERAL ISCHEMIA ABNORMAL ECG Electronically Signed By: Rene Nicole MD Abeba Ash MD ECG ORDERABLES Final Result Performing Organization Address [facility] Co de Phone Number [facility] * (ABNORMAL) Respiratory pathogen panel Nasopharyngeal (09/13/2024 1:50 AM CLINIC MD ASSOCIATE) [facility] Influenza A/2009 RNA Detected(A) Not Detected [facility] Influenza B RNA Not Detected Not Detected [facility] RSV RNA Not Detected Not Detected [facility] COVID-19 RNA Not Detected Not Detected [facility] Coronavirus 229E RNA Not Detected Not Detected [facility] Coronavirus HKU1 RNA Not Detected Not Detected [facility] Coronavirus NL63 RNA Not Detected Not Detected [facility] Coronavirus OC43 RNA Not Detected Not Detected [facility] Adenovirus DNA Not Detected Not Detected [facility] Metapneumovirus RNA Not Detected Not Detected [facility] Rhinovirus/Enterov irus RNA Not Detected Not Detected [facility] Parainfluenza 1 RNA Not Detected Not Detected [facility] Parainfluenza 2 RNA Not Detected Not Detected [facility] Parainfluenza 3 RNA Not Detected Not Detected [facility] Parainfluenza 4 RNA Not Detected Not Detected [facility] B. pertussis DNA Not Detected Not Detected [facility] B. parapertussis DNA Not Detected Not Detected [facility] C. pneumoniae DNA Not Detected Not Detected [facility] M. pneumoniae DNA Not Detected Not Detected [facility] Comment: Interpretive Data [employer] FilmArray Respiratory Panel (RP2.1) assay is a [...] assay has FDA clearance for testing of DENTAL SCHEDULING COORDINATOR swabs. The performance characteristics of this assay have been determined by [facility]. Current interpretive data was last revised on 2021. Nasopharyngeal 09/13/2024 1: 50 AM CLINIC MD ASSOCIATE 09/13/2024 2:04 AM CLINIC MD ASSOCIATE Narrative [facility] - 09/13/2024 2:57 AM CLINIC MD ASSOCIATE Is the Patient experiencing symptoms consistent with COVID?->Yes Surveillance testing for transplant patient?->No Abeba Ash MD LAB MICROBIOLOGY - GENERAL O RDERABLES Final Result [facility] [address] Department [place] [address] MBC * (ABNORMAL) Blood culture Blood (09/13/2024 1:50 AM CLINIC MD ASSOCIATE) Direct Specimen Exam Stain: Gram Positive Cocci in clusters Test result called to and read back by Sandra Joiner RN on 09/14/2024 12:27:01 by PDC. Report Final Report: Staphylococcus aureus, methicillin susceptible Susceptibility reported on this organism on previous culture [id number] (.) [facility] Organism STAPHYLOCOCCUS AUREUS, METHICILLIN SUSCEPTIBLE [facility] Blood 09/13/2024 1:50 AM CLINIC MD ASSOCIATE 09/13/2024 2:17 AM CLINIC MD ASSOCIATE Narrative [facility] - 09/15/2024 10:49 AM CLINIC MD ASSOCIATE Collection->Peripheral Interpretive Data 1. Blood cultures are incubated and monitored continuously for 5 days (120 hours). The first negative report is issued within 24 hours of receipt in the laboratory. 2. All positive cultures are resulted and called to physicians/care providers as soon as they are detected. 3. A rapid molecular test for organism identification may be performed using the [employer] Blood Culture Identification panel. This assay detects microbial DNA in a blood culture broth. This assay has been cleared by the [place] Food and Drug Administration and its performance characteristics have been verified by the [facility]biology Laboratory. Interpretive data was last revised on September 11, 2022. Abeba Ash MD LAB MICROBIOLOGY - GENERAL O RDERABLES Final Result Performing Organization Address [facility] Co de Phone Number [facility] [address] Department [employer] [place], [place] [id number] * (ABNORMAL) Troponin T high-sensitivity (09/13/2024 1:46 AM CLINIC MD ASSOCIATE) Trop T hs 116(H) <=14 ng/L Comment: Interpretive Data For further hscTnT resources including the diagnostic algorithm and an aid in interpretation, copy and paste this link: https://nrl.testcatalog.org/show/hsTrop Current Interpretive Data last revised 2020. Blood 09/13/2024 1:46 AM CLINIC MD ASSOCIATE 09/13/2024 1:53 AM CLINIC MD ASSOCIATE Abeba Ash MD LAB BLOOD ORDERABLES Final R esult Performing Organization Address [facility] Co de Phone Number [facility] [address] [place] [address] * (ABNORMAL) Lactate (09/13/2024 1:46 AM CLINIC MD ASSOCIATE) Lactate 2.6(H) 0.7 - 2.0 mmol/L Blood 09/13/2024 1:46 AM CLINIC MD ASSOCIATE 09/13/2024 1:51 AM CLINIC MD ASSOCIATE Abeba Ash MD LAB BLOOD ORDERABLES Final R esult Performing Organization Address [facility] Co de Phone Number [facility] [address] [place] [address] * (ABNORMAL) eGFR (09/13/2024 1:46 AM CLINIC MD ASSOCIATE) Pathologist [facility] eGFR 44(L) >=60 mL/min/1. 73 m2 Comment: [...] last reviewed 2021. Blood 09/13/2024 1:46 AM CLINIC MD ASSOCIATE 09/13/2024 1:53 AM CLINIC MD ASSOCIATE us Abeba Ash MD LAB BLOOD ORDERABLES Final R esult [facility] [address] Department [place] [address] * (ABNORMAL) Differential, auto (09/13/2024 1:46 AM CLINIC MD ASSOCIATE) [facility] Neutrophil abs 6.6(H) 1.5 - 6.5 K/cumm Imm gran abs 0.0 0.0 - 0.1 K/cumm [facility] Lymphocyte abs 0.5(L) 0.8 - 3.3 K/cumm [facility] Monocyte abs 0.7 0.2 - 0.8 K/cumm [facility] Eosinophil abs 0.0 0.0 - 0.5 K/cumm [facility] Basophil abs 0.0 0.0 - 0.1 K/cumm [facility] Neutrophil pct 84.7 % [facility] Comment: Interpretive Data Percent cell count reference ranges are not reported, since discordance with absolute values may lead to misinterpretation of CBC data. Current Interpretive Data was last revised on 2017. Imm gran pct 0.5 % [facility] Comment: Interpretive Data Percent cell count reference ranges are not reported, since discordance with absolute values may lead to misinterpretation of CBC data. Current Interpretive Data was last revised on 2017. Lymphocyte pct 5.8 % [facility] Comment: Interpretive Data Percent cell count reference ranges are not reported, since discordance with absolute values may lead to misinterpretation of CBC data. Current Interpretive Data was last revised on 2017. Monocyte pct 8.9 % [facility] Comment: Interpretive Data Percent cell count reference ranges are not reported, since discordance with absolute values may lead to misinterpretation of CBC data. Current Interpretive Data was last revised on 2017. Eosinophil pct 0.0 % [facility] Comment: Interpretive Data Percent cell count reference ranges are not reported, since discordance with absolute values may lead to misinterpretation of CBC data. Current Interpretive Data was last revised on 2017. Basophil pct 0.1 % [facility] Comment: Interpretive Data Percent cell count reference ranges are not reported, since discordance with absolute values may lead to misinterpretation of CBC data. Current Interpretive Data was last revised on 2017. Blood 09/13/2024 1:46 AM CLINIC MD ASSOCIATE 09/13/2024 1:53 AM CLINIC MD ASSOCIATE us Abeba Ash MD LAB BLOOD ORDERABLES Final R esult [facility] [address] Department [place] [address] * (ABNORMAL) Pro B-type natriuretic peptide (09/13/2024 1:46 AM CLINIC MD ASSOCIATE) NT-proBNP 6,745(H) <=300 pg/mL Comment: Interpretive Comments: [...] Revised Date: 2018. Blood 09/13/2024 1:46 AM CLINIC MD ASSOCIATE 09/13/2024 1:53 AM CLINIC MD ASSOCIATE us Abeba Ash MD LAB BLOOD ORDERABLES Final R esult [facility] [address] Department [place] [address] * (ABNORMAL) CBC with auto differential (09/13/2024 1:46 AM CLINIC MD ASSOCIATE) WBC 7.7 3.8 - 9.9 K/cumm Hgb 11.9 11.9 - 15.5 g/dL [facility] Hct 39.4 35.6 - 45.5 % [facility] Plt 111(L) 150 - 400 K/cumm [facility] MPV 12.8(H) 9.1 - 12.3 fL [facility] RBC 4.15 3.90 - 5.20 M/cumm [facility] MCV 94.9 81.3 - 96.4 fL [facility] MCH 28.7 27.1 - 33.3 pg [facility] MCHC 30.2(L) 32.3 - 35.7 g/dL [facility] RDW CV 14.6 11.1 - 14.9 % [facility] RDW SD 50.7(H) 35.7 - 48.1 fL [facility] NRBC abs 0.00 0.00 - 0.01 K/cumm [facility] Blood 09/13/2024 1:46 AM CLINIC MD ASSOCIATE 09/13/2024 1:53 AM CLINIC MD ASSOCIATE Abeba Ash MD LAB BLOOD ORDERABLES Final R esult Performing Organization Address [facility] Co de Phone Number [facility] [address] [place] [address] * (ABNORMAL) aPTT (09/13/2024 1:46 AM CLINIC MD ASSOCIATE) aPTT 25(L) 28 - 38 sec Comment: Interpretive Data Heparin therapeutic range: 66.0 - 100.0 seconds. Range based on correlation with therapeutic heparin activity range of 0.3 - 0.7 Units/mL. Current interpretive data was last revised on 2023. Blood 09/13/2024 1:46 AM CLINIC MD ASSOCIATE 09/13/2024 1:53 AM CLINIC MD ASSOCIATE us Abeba Ash MD LAB BLOOD ORDERABLES Final R esult Performing Organization Address [facility] Co de Phone Number [facility] [address] [place] [address] * Protime-INR (09/13/2024 1:46 AM CLINIC MD ASSOCIATE) PT 10.0 9.7 - 13.0 sec INR 0.93 0.90 - 1.20 [facility] Comment: Interpretive data Oral anticoagulant therapeutic ranges: Venous thromboembolism prophylaxis or treatment: 2.0-3.0 CARDIOLOGY Standard range: 2.0-3.0 High-intensity range: 2.5-3.5 Refer to indication-specific guidelines for appropriate target ranges for prosthetic heart valve replacement. Current interpretive data was last revised on 2019. Blood 09/13/2024 1:46 AM CLINIC MD ASSOCIATE 09/13/2024 1:53 AM CLINIC MD ASSOCIATE Abeba Ash MD LAB BLOOD ORDERABLES Final R esult Performing Organization Address [facility] Co de Phone Number [facility] [address] Department [employer] [place], [place] [id number] * Type and screen (09/13/2024 1:46 AM CLINIC MD ASSOCIATE) Pathologist [facility] ABO Rh A Positive Charles, indirect Negative [facility] Blood 09/13/2024 1:46 AM CLINIC MD ASSOCIATE 09/13/2024 1:51 AM CLINIC MD ASSOCIATE Narrative [facility] - 09/13/2024 2:31 AM CLINIC MD ASSOCIATE Has the patient had Daratumumab or Isatuximab in the past 6 months?->Unknown Abeba Ash MD LAB BLOOD BANK TEST ORDERABL ES Final Result Performing Organization Address [facility] Co de Phone Number [facility] [address] [place] [address] * Phosphorus (09/13/2024 1:46 AM CLINIC MD ASSOCIATE) Pathologist [facility] Phosphorus, pl 2.7 2.3 - 4.5 mg/dL Blood 09/13/2024 1:46 AM CLINIC MD ASSOCIATE 09/13/2024 1:53 AM CLINIC MD ASSOCIATE Abeba Ash MD LAB BLOOD ORDERABLES Final R esult Performing Organization Address [facility] Co de Phone Number [facility] [address] [place] [address] * Magnesium (09/13/2024 1:46 AM CLINIC MD ASSOCIATE) Pathologist [facility] Magnesium 2.1 1.4 - 2.5 mg/dL Blood 09/13/2024 1:46 AM CLINIC MD ASSOCIATE 09/13/2024 1:53 AM CLINIC MD ASSOCIATE Abeba Ash MD LAB BLOOD ORDERABLES Final R esult Performing Organization Address [facility] de Phone Number [facility] [address] [facility] [place] [address] * (ABNORMAL) Hemoglobin A1c (09/13/2024 1:46 AM CLINIC MD ASSOCIATE) [facility] Hgb A1C 9.1(H) 4.0 - 5.6 % Estimated Average Glucose 214 mg/dL [facility] Comment: The ADA recommends reporting an estimated Average Glucose (eAG) with all Hemoglobin A1c results using the equation derived from a study of 507 normal and diabetic adults. Minority populations were underrepresented and children were not included. (Diabetes Care 31:2840-6629, 2008). The eAG is not equivalent to a fasting glucose. Blood 09/13/2024 1:46 AM CLINIC MD ASSOCIATE 09/13/2024 1:53 AM CLINIC MD ASSOCIATE Abeba Ash MD LAB BLOOD ORDERABLES Final R esult Performing Organization Address [facility] de Phone Number [facility] [address] [facility] [place] [address] * (ABNORMAL) Comprehensive metabolic panel (09/13/2024 1:46 AM CLINIC MD ASSOCIATE) [facility] Sodium 151(H) 135 - 145 mmol/L Potassium, pl 4.0 3.3 - 4.9 mmol/L [facility] Chloride 110 97 - 110 mmol/L [facility] CO2 20(L) 22 - 32 mmol/L [facility] Anion gap 21(H) 2 - 15 mmol/L [facility] BUN 47(H) 6 - 25 mg/dL [facility] Creatinine 1.47(H) 0.60 - 1.10 mg/dL [facility] Glucose 264(H) 70 - 199 mg/dL [facility] Comment: Interpretive Data Fasting glucose >/= [...] 2022. Calcium 9.2 8.5 - 10.3 mg/dL [facility] Bilirubin, total 0.3 0.1 - 1.2 mg/dL [facility] Protein, pl 7.0 6.5 - 8.5 g/dL [facility] Albumin 3.4(L) 3.5 - 5.0 g/dL [facility] Alk phos 202(H) 40 - 130 Units/L [facility] ALT 48(H) 7 - 45 Units/L [facility] AST 45 10 - 45 Units/L [facility] Blood 09/13/2024 1:46 AM CLINIC MD ASSOCIATE 09/13/2024 1:53 AM CLINIC MD ASSOCIATE us Abeba Ash MD LAB BLOOD ORDERABLES Final R esult Performing Organization Address [facility] Co de Phone Number [facility] [address] Department [place] [address] * (ABNORMAL) POCT glucose (09/13/2024 1:30 AM CLINIC MD ASSOCIATE) [facility] Signature Glucose, POC 248(H) 70 - 199 mg/dL Comment: For Glucose values <35 mg/dl when Hematocrit is >60 mg/dl,the test may not accurately detect significant hypoglycemia,and testing in the Laboratory should be considered if clinically indicated. Blood 09/13/2024 1:30 AM CLINIC MD ASSOCIATE 09/13/2024 1:30 AM CLINIC MD ASSOCIATE Abeba Ash MD LAB POCT ORDERABLES - DEVICE Final Result [facility] [address] Department [place] [address] * (ABNORMAL) Serum lipid panel (06/26/2014 8:11 AM CLINIC MD ASSOCIATE) Cholesterol 328(H) 40 - 199 mg/dl HISTORICAL [...] revised on 2012. Serum 06/26/2014 8:11 AM CLINIC MD ASSOCIATE us Historical Provider LAB BLOOD ORDERABLES Salma l Result Performing Organization Address City/[facility]/ZIP Co de Phone Number HISTORICAL RESULTS * COLONOSCOPY REPORT (06/07/2014) Anatomical Region Laterality Modality Other Narrative 06/07/2014 Ordered by an unspecified provider. us Historical Provider GI PROCEDURE ORDERABLES F inal Result from Last 3 Months or Most Recently Relevant to Health Maintenance Insurance [facility] MEDICARE ADVANTAGE [facility] DIVISION [facility] MEDICARE ADVANTAGE IDPA IDPA [facility] MEDICARE ADVANTAGE Advance Directives For more information, please contact: [phone] * LIMITED - No CPR (Latest Code [...] MILLAN Daughter in Law Health Care Agent [phone] (Mobile ) Care Teams Brick Tender Relationship Specialty Start Date End Date Donte Lucas PA [address] [place] [id number] PCP - General Physician Police Commissioner 08/26/24
--- OUTSIDE RECORDS SUMMARY | 2024-10-29 07:23 | XMS_ITS | Patient Health Record ---
Author Organization [facility] Address [address] [facility] [address] [facility] [address] [place] [address] Care Team Providers Care Oil Expert Name Role Phone Gilma Chiu Unavailable [phone] REASON FOR REFERRAL No Information MEDICATIONS Medication [...] Notes Problem Hyperkalemia (E87.5) Active confirmed Hyperkalemia (26064583) Problem Heart failure, unspecified (I50.9) Active confirmed Heart failure (29107496) Problem Hypotension, unspecified (I95.9) Active confirmed Hypotension (02987014) Problem Chronic kidney disease, stage 2 (mild) (N18.2) Active confirmed Chronic kidne y disease stage 2 (851857448) Problem Retention of urine, unspecified (R33.9) Active confirmed Retention of urine (677719690) Problem Type 2 diabetes mellitus without complication, unspecified whether manager long term care insulin use (E11.9) Active confirmed Type II diabete s mellitus without complication (654291347) PLAN OF TREATMENT No Information
--- OUTSIDE RECORDS SUMMARY | 2024-10-29 07:23 | XMS_ITS | Encounter Summary ---
Author Organization [facility] Address [address] [place] [address] Care Team Providers Care Tugboat Pilot Name Role Phone Arnoldo Gary MD Primary Care Provider [phone] Encounter Details Date Type Department Care Team (Late st Contact Info) Description 01/25/2002 Inpatient Historical HIS INPATIENT IN BED Palak Shah MD [address] [place] [place] [address] Say Patricio MD [address] [facility] [address] [place] [address] POISONING-ANTITUSSI VES (Primary Dx) Social History Tobacco Use Types Packs/Day Years Used Date Smoking Tobacco: Never Assessed Comments Unknown Sex and Gender Information Value Date Recorded Sex Assigned at Not on file Legal Sex Female 3:51 AM [employer]PER[employer] Gender Identity Not on file Sexual [...] documented as of this encounter Care Teams Tugboat Pilot Relationship Specialty Start Date End Date Arnoldo Gary MD [address] [place] [address] PCP - General Internal Medicine 03/27/21 documented as of this encounter
--- OUTSIDE RECORDS SUMMARY | 2024-10-29 07:23 | XMS_ITS | Referral Summary ---
Author Organization [facility] er Address [address] [place] [address] Care Team Providers Care Occupational Therapist Assistant Name Role Phone SenbabsDonte Primary Care Provider Encounters Date Type Department Care Team Description 10/28/2024 Hospital Encounter [facility] ADMIT [address] [place] [phone] Trevor Rollins MD 10/28/2024 Orders Only [facility] Hospitalists [address] [place] [phone] Trevor Rollins MD 09/13/2024 1:12 AM FIELD CONTROL INSPECTOR - 10/01/2024 5:21 PM FIELD CONTROL INSPECTOR Hospital Encounter [address] [phone] Abeba Ash MD Striker, David A., MD Barks, Elida Schumacher, Guillermo Kaufman, DO Jordan, MD Kiran Song, Chai Rivera MD DKA, type 2, 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) [J15.211]; Acute kidney injury ([facility]) [N17.9]; DKA, type 2, not at goal ([facility]) Discharge Disposition: Discharge to home, home health skilled care 08/26/2024 9:30 AM FIELD CONTROL INSPECTOR Office Visit [facility] Neurology [address] [place] [phone] Ethel, Kaleb Adam MD Cerebrovascular accident (CVA) due to stenosis of small artery ([facility]) (Primary Dx); Polyneuropathy from Last 3 Months [...] hematuria 09/22/2021 Coronary artery disease invo lving [place] coronary artery of [place] heart without angina pectoris 09/22/2021 Chronic pain [...] drink = 0.6 oz pur e alcohol) [facility] Utilities Answer Date Recorded In the past 12 months has Collections, gas, oil, or water [facility] threatened to shut off services in your [...] often do you attend chur ch or scientology services? Never 09/13/2024 Do you belong to any clubs o r organizations such as anabaptist groups, unions, fraternal or athletic groups, or [...] any time in the past 12 [facility], were you homeless or living in [...] on file Legal Sex Female 11:01 PM FIELD CONTROL INSPECTOR Gender Identity Not on file Sexual Orientation Not on file Last Filed Vital Signs Vital Sign Reading Time Taken Comments Blood Pressure 148/70 10/01/2024 6:07 AM FIELD CONTROL INSPECTOR Pulse 74 10/01/2024 3:00 PM FIELD CONTROL INSPECTOR Temperature 36.4 C (97.6 F) 10/01/2024 3:07 AM FIELD CONTROL INSPECTOR Respiratory Rate 18 10/01/2024 3:07 AM FIELD CONTROL INSPECTOR Oxygen Saturation 93% 10/01/2024 2:52 PM FIELD CONTROL INSPECTOR Inhaled Oxygen Concentration - - Weight 110.3 kg (243 lb 2.7 oz) 09/23/2024 8:41 PM FIELD CONTROL INSPECTOR Height 165.1 cm (5' 5 ) 09/23/2024 8:41 PM FIELD CONTROL INSPECTOR Body Mass Index 40.47 09/23/2024 8:41 PM FIELD CONTROL INSPECTOR Plan of Treatment Not on file Procedures Procedure Name Priority Date/Time Associated Diagnosis Comments POCT GLUCOSE DEVICE Routine 10/01/2024 4 :34 PM FIELD CONTROL INSPECTOR POCT GLUCOSE DEVICE Routine 10/01/2024 11:48 AM FIELD CONTROL INSPECTOR XR CHEST 1 VIEW IP Routine 10/01/2024 9:10 AM FIELD CONTROL INSPECTOR EGFR Routine 10/01/2024 6:57 AM FIELD CONTROL INSPECTOR BASIC METABOLIC PANEL Routine 10/01/2024 6:57 AM FIELD CONTROL INSPECTOR MAGNESIUM Routine 10/01/2024 6:57 AM FIELD CONTROL INSPECTOR POCT GLUCOSE DEVICE Routine 10/01/2024 6 :04 AM FIELD CONTROL INSPECTOR POCT GLUCOSE DEVICE Routine 10/01/2024 2 :00 AM FIELD CONTROL INSPECTOR POCT GLUCOSE DEVICE Routine 09/30/2024 9 :45 PM FIELD CONTROL INSPECTOR POCT GLUCOSE DEVICE Routine 09/30/2024 4 :52 PM FIELD CONTROL INSPECTOR POCT GLUCOSE DEVICE Routine 09/30/2024 11:39 AM FIELD CONTROL INSPECTOR POCT GLUCOSE DEVICE Routine 09/30/2024 8 :36 AM FIELD CONTROL INSPECTOR POCT GLUCOSE DEVICE Routine 09/30/2024 5 :29 AM FIELD CONTROL INSPECTOR POCT GLUCOSE DEVICE Routine 09/30/2024 2 :22 AM FIELD CONTROL INSPECTOR POCT GLUCOSE DEVICE Routine 09/29/2024 8 :35 PM FIELD CONTROL INSPECTOR POCT GLUCOSE DEVICE Routine 09/29/2024 5 :35 PM FIELD CONTROL INSPECTOR EGFR Routine 09/29/2024 3:33 PM FIELD CONTROL INSPECTOR DIFFERENTIAL AUTO Routine 09/29/2024 3:3 3 PM FIELD CONTROL INSPECTOR COMPREHENSIVE METABOLIC PANEL Routine 09/29/2024 3:33 PM FIELD CONTROL INSPECTOR CBC WITH AUTO DIFFERENTIAL Routine 09/29/2024 3:33 PM FIELD CONTROL INSPECTOR POCT GLUCOSE DEVICE Routine 09/29/2024 1 :43 PM FIELD CONTROL INSPECTOR POCT GLUCOSE DEVICE Routine 09/29/2024 9 :49 AM FIELD CONTROL INSPECTOR POCT GLUCOSE DEVICE Routine 09/29/2024 7 :27 AM FIELD CONTROL INSPECTOR POCT GLUCOSE DEVICE Routine 09/29/2024 5 :31 AM FIELD CONTROL INSPECTOR POCT GLUCOSE DEVICE Routine 09/29/2024 1 :25 AM FIELD CONTROL INSPECTOR POCT GLUCOSE DEVICE Routine 09/28/2024 9 :14 PM FIELD CONTROL INSPECTOR POCT GLUCOSE DEVICE Routine 09/28/2024 5 :12 PM FIELD CONTROL INSPECTOR POCT GLUCOSE DEVICE Routine 09/28/2024 1 :43 PM FIELD CONTROL INSPECTOR POCT GLUCOSE DEVICE Routine 09/28/2024 9 :16 AM FIELD CONTROL INSPECTOR EGFR Routine 09/28/2024 7:09 AM FIELD CONTROL INSPECTOR DIFFERENTIAL AUTO Routine 09/28/2024 7:0 9 AM FIELD CONTROL INSPECTOR COMPREHENSIVE METABOLIC PANEL Routine 09/28/2024 7:09 AM FIELD CONTROL INSPECTOR CBC WITH AUTO DIFFERENTIAL Routine 09/28/2024 7:09 AM FIELD CONTROL INSPECTOR POCT GLUCOSE DEVICE Routine 09/28/2024 5 :42 AM FIELD CONTROL INSPECTOR POCT GLUCOSE DEVICE Routine 09/28/2024 1 :31 AM FIELD CONTROL INSPECTOR POCT GLUCOSE DEVICE Routine 09/27/2024 9 :14 PM FIELD CONTROL INSPECTOR POCT GLUCOSE DEVICE Routine 09/27/2024 5 :25 PM FIELD CONTROL INSPECTOR POCT GLUCOSE DEVICE Routine 09/27/2024 3 :13 PM FIELD CONTROL INSPECTOR FL MODIFIED BARIUM SWALLOW W VIDEO IP Routine 09/27/2024 2:20 PM FIELD CONTROL INSPECTOR POCT GLUCOSE DEVICE Routine 09/27/2024 10:05 AM FIELD CONTROL INSPECTOR ADD ON LAB TEST Add-On 09/27/2024 8:43 AM FIELD CONTROL INSPECTOR POCT GLUCOSE DEVICE Routine 09/27/2024 5 :57 AM FIELD CONTROL INSPECTOR IRON PROFILE W/ IBC Routine 09/27/2024 5 :42 AM FIELD CONTROL INSPECTOR EGFR Routine 09/27/2024 5:42 AM FIELD CONTROL INSPECTOR DIFFERENTIAL AUTO Routine 09/27/2024 5:4 2 AM FIELD CONTROL INSPECTOR COMPREHENSIVE METABOLIC PANEL Routine 09/27/2024 5:42 AM FIELD CONTROL INSPECTOR CBC WITH AUTO DIFFERENTIAL Routine 09/27/2024 5:42 AM FIELD CONTROL INSPECTOR POCT GLUCOSE DEVICE Routine 09/27/2024 2 :14 AM FIELD CONTROL INSPECTOR POCT GLUCOSE DEVICE Routine 09/26/2024 9 :41 PM FIELD CONTROL INSPECTOR POCT GLUCOSE DEVICE Routine 09/26/2024 6 :18 PM FIELD CONTROL INSPECTOR POCT GLUCOSE DEVICE Routine 09/26/2024 2 :51 PM FIELD CONTROL INSPECTOR CBC WITH AUTO DIFFERENTIAL STAT 09/26/2024 2:03 PM FIELD CONTROL INSPECTOR EGFR Routine 09/26/2024 1:25 PM FIELD CONTROL INSPECTOR DIFFERENTIAL AUTO Routine 09/26/2024 1:2 5 PM FIELD CONTROL INSPECTOR COMPREHENSIVE METABOLIC PANEL Routine 09/26/2024 1:25 PM FIELD CONTROL INSPECTOR CBC WITH AUTO DIFFERENTIAL Routine 09/26/2024 1:25 PM FIELD CONTROL INSPECTOR POCT GLUCOSE DEVICE Routine 09/26/2024 10:10 AM FIELD CONTROL INSPECTOR POCT GLUCOSE DEVICE Routine 09/26/2024 5 :04 AM FIELD CONTROL INSPECTOR C. DIFFICILE TESTING Routine 09/26/2024 2:18 AM FIELD CONTROL INSPECTOR POCT GLUCOSE DEVICE Routine 09/26/2024 12:01 AM FIELD CONTROL INSPECTOR POCT GLUCOSE DEVICE Routine 09/25/2024 8 :35 PM FIELD CONTROL INSPECTOR POCT GLUCOSE DEVICE Routine 09/25/2024 4 :36 PM FIELD CONTROL INSPECTOR POCT GLUCOSE DEVICE Routine 09/25/2024 11:55 AM FIELD CONTROL INSPECTOR POCT GLUCOSE DEVICE Routine 09/25/2024 8 :32 AM FIELD CONTROL INSPECTOR EGFR Routine 09/25/2024 8:32 AM FIELD CONTROL INSPECTOR DIFFERENTIAL AUTO Routine 09/25/2024 8:3 2 AM FIELD CONTROL INSPECTOR COMPREHENSIVE METABOLIC PANEL Routine 09/25/2024 8:32 AM FIELD CONTROL INSPECTOR CBC WITH AUTO DIFFERENTIAL Routine 09/25/2024 8:32 AM FIELD CONTROL INSPECTOR POCT GLUCOSE DEVICE Routine 09/25/2024 4 :49 AM FIELD CONTROL INSPECTOR POCT GLUCOSE DEVICE Routine 09/25/2024 12:48 AM FIELD CONTROL INSPECTOR POCT GLUCOSE DEVICE Routine 09/24/2024 8 :56 PM FIELD CONTROL INSPECTOR POCT GLUCOSE DEVICE Routine 09/24/2024 4 :20 PM FIELD CONTROL INSPECTOR POCT GLUCOSE DEVICE Routine 09/24/2024 12:13 PM FIELD CONTROL INSPECTOR XR CHEST 1 VIEW IP Routine 09/24/2024 8:18 AM FIELD CONTROL INSPECTOR POCT GLUCOSE DEVICE Routine 09/24/2024 4 :12 AM FIELD CONTROL INSPECTOR POCT GLUCOSE DEVICE Routine 09/24/2024 2 :44 AM FIELD CONTROL INSPECTOR POCT GLUCOSE DEVICE Routine 09/24/2024 1 :06 AM FIELD CONTROL INSPECTOR POCT GLUCOSE DEVICE Routine 09/24/2024 12:44 AM FIELD CONTROL INSPECTOR POCT GLUCOSE DEVICE Routine 09/24/2024 12:22 AM FIELD CONTROL INSPECTOR POCT GLUCOSE DEVICE Routine 09/23/2024 9 :34 PM FIELD CONTROL INSPECTOR POCT GLUCOSE DEVICE Routine 09/23/2024 4 :10 PM FIELD CONTROL INSPECTOR POCT GLUCOSE DEVICE Routine 09/23/2024 1 :10 PM FIELD CONTROL INSPECTOR POCT GLUCOSE DEVICE Routine 09/23/2024 12:18 PM FIELD CONTROL INSPECTOR POCT GLUCOSE DEVICE Routine 09/23/2024 11:55 AM FIELD CONTROL INSPECTOR POCT GLUCOSE DEVICE Routine 09/23/2024 11:54 AM FIELD CONTROL INSPECTOR POCT GLUCOSE DEVICE Routine 09/23/2024 7 :47 AM FIELD CONTROL INSPECTOR POCT GLUCOSE DEVICE Routine 09/23/2024 3 :27 AM FIELD CONTROL INSPECTOR POCT GLUCOSE DEVICE Routine 09/23/2024 1 :13 AM FIELD CONTROL INSPECTOR POCT GLUCOSE DEVICE Routine 09/23/2024 12:17 AM FIELD CONTROL INSPECTOR POCT GLUCOSE DEVICE Routine 09/22/2024 11:54 PM FIELD CONTROL INSPECTOR BLOOD GAS, ARTERIAL STAT 09/22/2024 8 :33 PM FIELD CONTROL INSPECTOR POCT GLUCOSE DEVICE Routine 09/22/2024 7 :46 PM FIELD CONTROL INSPECTOR POCT GLUCOSE DEVICE Routine 09/22/2024 4 :04 PM FIELD CONTROL INSPECTOR EXTUBATION Routine 09/22/2024 3:48 PM FIELD CONTROL INSPECTOR POCT GLUCOSE DEVICE Routine 09/22/2024 11:51 AM FIELD CONTROL INSPECTOR POCT GLUCOSE DEVICE Routine 09/22/2024 8 :42 AM FIELD CONTROL INSPECTOR POCT GLUCOSE DEVICE Routine 09/22/2024 4 :05 AM FIELD CONTROL INSPECTOR XR CHEST 1 VIEW IP Routine 09/22/2024 3:59 AM FIELD CONTROL INSPECTOR EGFR Routine 09/22/2024 2:24 AM FIELD CONTROL INSPECTOR CBC WITHOUT DIFFERENTIAL Routine 09/22/2024 2:24 AM FIELD CONTROL INSPECTOR MAGNESIUM Routine 09/22/2024 2:24 AM FIELD CONTROL INSPECTOR RENAL FUNCTION PANEL Routine 09/22/2024 2:24 AM FIELD CONTROL INSPECTOR POCT GLUCOSE DEVICE Routine 09/21/2024 11:58 PM FIELD CONTROL INSPECTOR POCT GLUCOSE DEVICE Routine 09/21/2024 7 :01 PM FIELD CONTROL INSPECTOR POCT GLUCOSE DEVICE Routine 09/21/2024 3 :10 PM FIELD CONTROL INSPECTOR POTASSIUM LEVEL STAT 09/21/2024 2:07 PM FIELD CONTROL INSPECTOR POCT GLUCOSE DEVICE Routine 09/21/2024 11:30 AM FIELD CONTROL INSPECTOR POCT GLUCOSE DEVICE Routine 09/21/2024 7 :19 AM FIELD CONTROL INSPECTOR XR CHEST 1 VIEW IP Routine 09/21/2024 4:44 AM FIELD CONTROL INSPECTOR POCT GLUCOSE DEVICE Routine 09/21/2024 3 :47 AM FIELD CONTROL INSPECTOR EGFR Routine 09/21/2024 1:48 AM FIELD CONTROL INSPECTOR PHOSPHORUS Routine 09/21/2024 1:48 AM FIELD CONTROL INSPECTOR BILIRUBIN, DIRECT Routine 09/21/2024 1:4 8 AM FIELD CONTROL INSPECTOR COMPREHENSIVE METABOLIC PANEL Routine 09/21/2024 1:48 AM FIELD CONTROL INSPECTOR CBC WITHOUT DIFFERENTIAL Routine 09/21/2024 1:48 AM FIELD CONTROL INSPECTOR MAGNESIUM Routine 09/21/2024 1:48 AM FIELD CONTROL INSPECTOR POCT GLUCOSE DEVICE Routine 09/20/2024 11:54 PM FIELD CONTROL INSPECTOR POCT GLUCOSE DEVICE Routine 09/20/2024 7 :03 PM FIELD CONTROL INSPECTOR POCT GLUCOSE DEVICE Routine 09/20/2024 3 :28 PM FIELD CONTROL INSPECTOR POCT GLUCOSE DEVICE Routine 09/20/2024 11:48 AM FIELD CONTROL INSPECTOR BLOOD GAS, ARTERIAL STAT 09/20/2024 10:54 AM FIELD CONTROL INSPECTOR XR CHEST 1 VIEW ED Urgent/IP Urgent 09/20/2024 9:17 AM FIELD CONTROL INSPECTOR POCT GLUCOSE DEVICE Routine 09/20/2024 7 :20 AM FIELD CONTROL INSPECTOR POCT GLUCOSE DEVICE Routine 09/20/2024 3 :37 AM FIELD CONTROL INSPECTOR EGFR Routine 09/20/2024 12:27 AM FIELD CONTROL INSPECTOR DIFFERENTIAL AUTO Routine 09/20/2024 12:27 AM FIELD CONTROL INSPECTOR COMPREHENSIVE METABOLIC PANEL Routine 09/20/2024 12:27 AM FIELD CONTROL INSPECTOR CBC WITH AUTO DIFFERENTIAL Routine 09/20/2024 12:27 AM FIELD CONTROL INSPECTOR POCT GLUCOSE DEVICE Routine 09/19/2024 11:00 PM FIELD CONTROL INSPECTOR POCT GLUCOSE DEVICE Routine 09/19/2024 7 :52 PM FIELD CONTROL INSPECTOR POCT GLUCOSE DEVICE Routine 09/19/2024 4 :55 PM FIELD CONTROL INSPECTOR POCT GLUCOSE DEVICE Routine 09/19/2024 12:31 PM FIELD CONTROL INSPECTOR POTASSIUM LEVEL Timed 09/19/2024 10:04 AM FIELD CONTROL INSPECTOR EEG Routine 09/19/2024 8:50 AM FIELD CONTROL INSPECTOR POCT GLUCOSE DEVICE Routine 09/19/2024 7 :53 AM FIELD CONTROL INSPECTOR POCT GLUCOSE DEVICE Routine 09/19/2024 3 :58 AM FIELD CONTROL INSPECTOR MANUAL DIFFERENTIAL Routine 09/19/2024 1 :46 AM FIELD CONTROL INSPECTOR EGFR Routine 09/19/2024 1:46 AM FIELD CONTROL INSPECTOR DIFFERENTIAL AUTO Routine 09/19/2024 1:4 6 AM FIELD CONTROL INSPECTOR CBC WITH AUTO DIFFERENTIAL Routine 09/19/2024 1:46 AM FIELD CONTROL INSPECTOR MAGNESIUM Routine 09/19/2024 1:46 AM FIELD CONTROL INSPECTOR PHOSPHORUS Routine 09/19/2024 1:46 AM FIELD CONTROL INSPECTOR COMPREHENSIVE METABOLIC PANEL Routine 09/19/2024 1:46 AM FIELD CONTROL INSPECTOR AMMONIA STAT 09/19/2024 1:07 AM FIELD CONTROL INSPECTOR POCT GLUCOSE DEVICE Routine 09/18/2024 11:58 PM FIELD CONTROL INSPECTOR POCT GLUCOSE DEVICE Routine 09/18/2024 9 :10 PM FIELD CONTROL INSPECTOR POCT GLUCOSE DEVICE Routine 09/18/2024 4 :18 PM FIELD CONTROL INSPECTOR POCT GLUCOSE DEVICE Routine 09/18/2024 12:07 PM FIELD CONTROL INSPECTOR DIC SCHISTOCYTES STAT 09/18/2024 8:13 AM FIELD CONTROL INSPECTOR DIC PLATELET STAT 09/18/2024 8:13 AM FIELD CONTROL INSPECTOR DIFFERENTIAL AUTO STAT 09/18/2024 8:1 3 AM FIELD CONTROL INSPECTOR CBC WITH AUTO DIFFERENTIAL STAT 09/18/2024 8:13 AM FIELD CONTROL INSPECTOR DIC PROFILE Routine 09/18/2024 8:13 AM FIELD CONTROL INSPECTOR POCT GLUCOSE DEVICE Routine 09/18/2024 7 :57 AM FIELD CONTROL INSPECTOR POCT GLUCOSE DEVICE Routine 09/18/2024 7 :56 AM FIELD CONTROL INSPECTOR EGFR Routine 09/18/2024 7:26 AM FIELD CONTROL INSPECTOR VITAMIN B12 Routine 09/18/2024 7:26 AM FIELD CONTROL INSPECTOR PHOSPHORUS Routine 09/18/2024 7:26 AM FIELD CONTROL INSPECTOR MAGNESIUM Routine 09/18/2024 7:26 AM FIELD CONTROL INSPECTOR COMPREHENSIVE METABOLIC PANEL Routine 09/18/2024 7:26 AM FIELD CONTROL INSPECTOR POCT GLUCOSE DEVICE Routine 09/18/2024 4 :28 AM FIELD CONTROL INSPECTOR DIC COAGULATION Routine 09/18/2024 4:20 AM FIELD CONTROL INSPECTOR POCT GLUCOSE DEVICE Routine 09/17/2024 11:57 PM FIELD CONTROL INSPECTOR POCT GLUCOSE DEVICE Routine 09/17/2024 8 :02 PM FIELD CONTROL INSPECTOR POCT GLUCOSE DEVICE Routine 09/17/2024 4 :21 PM FIELD CONTROL INSPECTOR EGFR Timed 09/17/2024 2:52 PM FIELD CONTROL INSPECTOR RENAL FUNCTION PANEL Timed 09/17/2024 2:52 PM FIELD CONTROL INSPECTOR POCT GLUCOSE DEVICE Routine 09/17/2024 12:23 PM FIELD CONTROL INSPECTOR POCT GLUCOSE DEVICE Routine 09/17/2024 7 :09 AM FIELD CONTROL INSPECTOR POCT GLUCOSE DEVICE Routine 09/17/2024 4 :42 AM FIELD CONTROL INSPECTOR MANUAL DIFFERENTIAL Routine 09/17/2024 4 :10 AM FIELD CONTROL INSPECTOR EGFR Routine 09/17/2024 4:10 AM FIELD CONTROL INSPECTOR HAPTOGLOBIN Routine 09/17/2024 4:10 AM FIELD CONTROL INSPECTOR THYROID FUNCTION CASCADE Routine 09/17/2024 4:10 AM FIELD CONTROL INSPECTOR MAGNESIUM Routine 09/17/2024 4:10 AM FIELD CONTROL INSPECTOR PHOSPHORUS Routine 09/17/2024 4:10 AM FIELD CONTROL INSPECTOR CBC WITH AUTO DIFFERENTIAL Routine 09/17/2024 4:10 AM FIELD CONTROL INSPECTOR COMPREHENSIVE METABOLIC PANEL Routine 09/17/2024 4:10 AM FIELD CONTROL INSPECTOR XR CHEST 1 VIEW IP Routine 09/17/2024 2:59 AM FIELD CONTROL INSPECTOR POCT GLUCOSE DEVICE Routine 09/16/2024 11:48 PM FIELD CONTROL INSPECTOR POCT GLUCOSE DEVICE Routine 09/16/2024 8 :12 PM FIELD CONTROL INSPECTOR POCT GLUCOSE DEVICE Routine 09/16/2024 4 :04 PM FIELD CONTROL INSPECTOR POCT GLUCOSE DEVICE Routine 09/16/2024 12:27 PM FIELD CONTROL INSPECTOR US VEIN DUPLEX LOWER EXTREMITY BILATERAL COMPLETE IP Routine 09/16/2024 11:24 AM FIELD CONTROL INSPECTOR GA INSJ NON-TUNNELED CENTRAL VENOUS CATH AGE 5 YR/> Routine 09/16/2024 8:53 AM FIELD CONTROL INSPECTOR MSSA bacteremia BLOOD CULTURE STAT 09/16/2024 8:53 AM FIELD CONTROL INSPECTOR BLOOD CULTURE STAT 09/16/2024 8:45 AM FIELD CONTROL INSPECTOR POCT GLUCOSE DEVICE Routine 09/16/2024 7 :33 AM FIELD CONTROL INSPECTOR MANUAL DIFFERENTIAL STAT 09/16/2024 5 :30 AM FIELD CONTROL INSPECTOR CBC WITH AUTO DIFFERENTIAL STAT 09/16/2024 5:30 AM FIELD CONTROL INSPECTOR POCT GLUCOSE DEVICE Routine 09/16/2024 5 :23 AM FIELD CONTROL INSPECTOR XR CHEST 1 VIEW Routine 09/16/2024 4:37 AM FIELD CONTROL INSPECTOR TRIGLYCERIDES Routine 09/16/2024 4:05 AM FIELD CONTROL INSPECTOR EGFR Routine 09/16/2024 4:05 AM FIELD CONTROL INSPECTOR MAGNESIUM Routine 09/16/2024 4:05 AM FIELD CONTROL INSPECTOR RENAL FUNCTION PANEL Routine 09/16/2024 4:05 AM FIELD CONTROL INSPECTOR BLOOD CULTURE STAT 09/16/2024 4:05 AM FIELD CONTROL INSPECTOR POCT GLUCOSE DEVICE Routine 09/16/2024 3 :45 AM FIELD CONTROL INSPECTOR MRI BRAIN WO CONTRAST IP Routine 09/16/2024 1:48 AM FIELD CONTROL INSPECTOR POCT GLUCOSE DEVICE Routine 09/16/2024 1 :06 AM FIELD CONTROL INSPECTOR POCT GLUCOSE DEVICE Routine 09/16/2024 12:01 AM FIELD CONTROL INSPECTOR POCT GLUCOSE DEVICE Routine 09/15/2024 9 :09 PM FIELD CONTROL INSPECTOR POCT GLUCOSE DEVICE Routine 09/15/2024 7 :41 PM FIELD CONTROL INSPECTOR POCT GLUCOSE DEVICE Routine 09/15/2024 5 :12 PM FIELD CONTROL INSPECTOR POCT GLUCOSE DEVICE Routine 09/15/2024 3 :05 PM FIELD CONTROL INSPECTOR AEROBIC CULTURE AND GRAM STAIN Routine 09/15/2024 1:57 PM FIELD CONTROL INSPECTOR TRANSESOPHAGEAL ECHO (DEMI) W DOPPLER/CF WO CONTRAST Routine 09/15/2024 1:43 PM FIELD CONTROL INSPECTOR POCT GLUCOSE DEVICE Routine 09/15/2024 1 :05 PM FIELD CONTROL INSPECTOR XR CHEST 1 VIEW Critical/Life- Threatening 09/15/2024 11:41 AM FIELD CONTROL INSPECTOR BLOOD GAS, ARTERIAL STAT 09/15/2024 11:34 AM FIELD CONTROL INSPECTOR POCT GLUCOSE DEVICE Routine 09/15/2024 11:07 AM FIELD CONTROL INSPECTOR INTUBATION Routine 09/15/2024 10:31 AM FIELD CONTROL INSPECTOR Toxic metabolic encephalopathy MONITOR EXHALED CO2 Routine 09/15/2024 10:30 AM FIELD CONTROL INSPECTOR POCT GLUCOSE DEVICE Routine 09/15/2024 9 :16 AM FIELD CONTROL INSPECTOR POCT GLUCOSE DEVICE Routine 09/15/2024 7 :06 AM FIELD CONTROL INSPECTOR POCT GLUCOSE DEVICE Routine 09/15/2024 5 :27 AM FIELD CONTROL INSPECTOR POCT GLUCOSE DEVICE Routine 09/15/2024 3 :51 AM FIELD CONTROL INSPECTOR APTT Timed 09/15/2024 3:48 AM FIELD CONTROL INSPECTOR XR CHEST 1 VIEW IP Routine 09/15/2024 3:41 AM FIELD CONTROL INSPECTOR EGFR Routine 09/15/2024 1:50 AM FIELD CONTROL INSPECTOR PHOSPHORUS Routine 09/15/2024 1:50 AM FIELD CONTROL INSPECTOR BILIRUBIN, DIRECT Routine 09/15/2024 1:5 0 AM FIELD CONTROL INSPECTOR COMPREHENSIVE METABOLIC PANEL Routine 09/15/2024 1:50 AM FIELD CONTROL INSPECTOR CBC WITHOUT DIFFERENTIAL Routine 09/15/2024 1:50 AM FIELD CONTROL INSPECTOR MAGNESIUM Routine 09/15/2024 1:50 AM FIELD CONTROL INSPECTOR POCT GLUCOSE DEVICE Routine 09/15/2024 12:53 AM FIELD CONTROL INSPECTOR POCT GLUCOSE DEVICE Routine 09/14/2024 11:15 PM FIELD CONTROL INSPECTOR APTT Timed 09/14/2024 9:19 PM FIELD CONTROL INSPECTOR POCT GLUCOSE DEVICE Routine 09/14/2024 9 :16 PM FIELD CONTROL INSPECTOR POCT GLUCOSE DEVICE Routine 09/14/2024 7 :20 PM FIELD CONTROL INSPECTOR POCT GLUCOSE DEVICE Routine 09/14/2024 6 :16 PM FIELD CONTROL INSPECTOR POCT GLUCOSE DEVICE Routine 09/14/2024 4 :55 PM FIELD CONTROL INSPECTOR POCT GLUCOSE DEVICE Routine 09/14/2024 4 :10 PM FIELD CONTROL INSPECTOR POCT GLUCOSE DEVICE Routine 09/14/2024 3 :03 PM FIELD CONTROL INSPECTOR EGFR Timed 09/14/2024 1:05 PM FIELD CONTROL INSPECTOR RENAL FUNCTION PANEL Timed 09/14/2024 1:05 PM FIELD CONTROL INSPECTOR APTT Timed 09/14/2024 1:05 PM FIELD CONTROL INSPECTOR POCT GLUCOSE DEVICE Routine 09/14/2024 12:55 PM FIELD CONTROL INSPECTOR POCT GLUCOSE DEVICE Routine 09/14/2024 12:01 PM FIELD CONTROL INSPECTOR POCT GLUCOSE DEVICE Routine 09/14/2024 11:05 AM FIELD CONTROL INSPECTOR POCT GLUCOSE DEVICE Routine 09/14/2024 10:04 AM FIELD CONTROL INSPECTOR BLOOD CULTURE STAT 09/14/2024 9:42 AM FIELD CONTROL INSPECTOR BLOOD CULTURE STAT 09/14/2024 9:42 AM FIELD CONTROL INSPECTOR POCT GLUCOSE DEVICE Routine 09/14/2024 8 :56 AM FIELD CONTROL INSPECTOR BLOOD GAS, ARTERIAL STAT 09/14/2024 8 :08 AM FIELD CONTROL INSPECTOR POCT GLUCOSE DEVICE Routine 09/14/2024 7 :50 AM FIELD CONTROL INSPECTOR APTT Timed 09/14/2024 6:06 AM FIELD CONTROL INSPECTOR POCT GLUCOSE DEVICE Routine 09/14/2024 4 :10 AM FIELD CONTROL INSPECTOR XR CHEST 1 VIEW IP Routine 09/14/2024 3:10 AM FIELD CONTROL INSPECTOR MANUAL DIFFERENTIAL Routine 09/14/2024 1 :59 AM FIELD CONTROL INSPECTOR EGFR Routine 09/14/2024 1:59 AM FIELD CONTROL INSPECTOR PHOSPHORUS Routine 09/14/2024 1:59 AM FIELD CONTROL INSPECTOR BILIRUBIN, DIRECT Routine 09/14/2024 1:5 9 AM FIELD CONTROL INSPECTOR COMPREHENSIVE METABOLIC PANEL Routine 09/14/2024 1:59 AM FIELD CONTROL INSPECTOR CBC WITHOUT DIFFERENTIAL Routine 09/14/2024 1:59 AM FIELD CONTROL INSPECTOR MAGNESIUM Routine 09/14/2024 1:59 AM FIELD CONTROL INSPECTOR POCT GLUCOSE DEVICE Routine 09/14/2024 12:41 AM FIELD CONTROL INSPECTOR APTT Timed 09/13/2024 9:58 PM FIELD CONTROL INSPECTOR XR ABDOMEN ERECT AND OR DECUBITS 2 VIEWS IP Routine 09/13/2024 9:41 PM FIELD CONTROL INSPECTOR POCT GLUCOSE DEVICE Routine 09/13/2024 7 :57 PM FIELD CONTROL INSPECTOR EGFR Timed 09/13/2024 6:33 PM FIELD CONTROL INSPECTOR RENAL FUNCTION PANEL Timed 09/13/2024 6:33 PM FIELD CONTROL INSPECTOR ECG 12-LEAD STAT 09/13/2024 5:24 PM FIELD CONTROL INSPECTOR POCT GLUCOSE DEVICE Routine 09/13/2024 4 :29 PM FIELD CONTROL INSPECTOR POCT GLUCOSE DEVICE Routine 09/13/2024 3 :18 PM FIELD CONTROL INSPECTOR POCT GLUCOSE DEVICE Routine 09/13/2024 2 :29 PM FIELD CONTROL INSPECTOR APTT Timed 09/13/2024 2:28 PM FIELD CONTROL INSPECTOR POCT GLUCOSE DEVICE Routine 09/13/2024 1 :10 PM FIELD CONTROL INSPECTOR EGFR Timed 09/13/2024 12:22 PM FIELD CONTROL INSPECTOR PHOSPHORUS Timed 09/13/2024 12:22 PM FIELD CONTROL INSPECTOR MAGNESIUM Timed 09/13/2024 12:22 PM FIELD CONTROL INSPECTOR BASIC METABOLIC PANEL Timed 09/13/2024 12:22 PM FIELD CONTROL INSPECTOR POCT GLUCOSE DEVICE Routine 09/13/2024 12:20 PM FIELD CONTROL INSPECTOR US CAROTIDS DUPLEX BILATERAL IP Routine 09/13/2024 11:55 AM FIELD CONTROL INSPECTOR TRANSTHORACIC ECHO (TTE) COMPLETE W DOPPLER/CF W CONTRAST Routine 09/13/2024 11:24 AM FIELD CONTROL INSPECTOR POCT GLUCOSE DEVICE Routine 09/13/2024 11:12 AM FIELD CONTROL INSPECTOR URINALYSIS, MICROSCOPIC ONLY Routine 09/13/2024 9:45 AM FIELD CONTROL INSPECTOR DIC SCHISTOCYTES STAT 09/13/2024 9:45 AM FIELD CONTROL INSPECTOR DIC PLATELET STAT 09/13/2024 9:45 AM FIELD CONTROL INSPECTOR DIC COAGULATION STAT 09/13/2024 9:45 AM FIELD CONTROL INSPECTOR DRUGS OF ABUSE SCREEN, URINE WITHOUT CONFIRMATION Routine 09/13/2024 9:45 AM FIELD CONTROL INSPECTOR HIT ANTIBODIES W/REFLEX TO SEROTONIN RELEASE ASSAY (ASHLEY) Routine 09/13/2024 9:45 AM FIELD CONTROL INSPECTOR DIC PROFILE STAT 09/13/2024 9:45 AM FIELD CONTROL INSPECTOR AMMONIA STAT 09/13/2024 9:45 AM FIELD CONTROL INSPECTOR URINE CULTURE Routine 09/13/2024 9:45 AM FIELD CONTROL INSPECTOR URINALYSIS AND REFLEX TO MICROSCOPIC AND CULTURE Routine 09/13/2024 9:45 AM FIELD CONTROL INSPECTOR POCT GLUCOSE DEVICE Routine 09/13/2024 9 :31 AM FIELD CONTROL INSPECTOR ADD ON LAB TEST Add-On 09/13/2024 9:25 AM FIELD CONTROL INSPECTOR ADD ON LAB TEST Add-On 09/13/2024 9:25 AM FIELD CONTROL INSPECTOR XR CHEST 1 VIEW Critical/Life- Threatening 09/13/2024 8:30 AM FIELD CONTROL INSPECTOR LIPASE Timed 09/13/2024 8:11 AM FIELD CONTROL INSPECTOR AMYLASE Timed 09/13/2024 8:11 AM FIELD CONTROL INSPECTOR BETA-HYDROXYBUTYRATE Timed 09/13/2024 8:11 AM FIELD CONTROL INSPECTOR EGFR Timed 09/13/2024 8:11 AM FIELD CONTROL INSPECTOR APTT Timed 09/13/2024 8:11 AM FIELD CONTROL INSPECTOR PHOSPHORUS Timed 09/13/2024 8:11 AM FIELD CONTROL INSPECTOR MAGNESIUM Timed 09/13/2024 8:11 AM FIELD CONTROL INSPECTOR BASIC METABOLIC PANEL Timed 09/13/2024 8:11 AM FIELD CONTROL INSPECTOR BLOOD GAS, ARTERIAL STAT 09/13/2024 7 :58 AM FIELD CONTROL INSPECTOR POCT GLUCOSE DEVICE Routine 09/13/2024 7 :54 AM FIELD CONTROL INSPECTOR POCT GLUCOSE DEVICE Routine 09/13/2024 6 :04 AM FIELD CONTROL INSPECTOR BLOOD CULTURE Routine 09/13/2024 5:22 AM FIELD CONTROL INSPECTOR POCT GLUCOSE DEVICE Routine 09/13/2024 5 :06 AM FIELD CONTROL INSPECTOR POCT GLUCOSE DEVICE Routine 09/13/2024 4 :05 AM FIELD CONTROL INSPECTOR CT HEAD WO CONTRAST ED Urgent/IP Urgent 09/13/2024 3:40 AM FIELD CONTROL INSPECTOR POCT GLUCOSE DEVICE Routine 09/13/2024 3 :15 AM FIELD CONTROL INSPECTOR URINALYSIS, MICROSCOPIC ONLY Routine 09/13/2024 2:59 AM FIELD CONTROL INSPECTOR URINE CULTURE Routine 09/13/2024 2:59 AM FIELD CONTROL INSPECTOR URINALYSIS AND REFLEX TO MICROSCOPIC AND CULTURE Routine 09/13/2024 2:59 AM FIELD CONTROL INSPECTOR POCT GLUCOSE DEVICE Routine 09/13/2024 2 :03 AM FIELD CONTROL INSPECTOR ECG 12-LEAD STAT 09/13/2024 1:58 AM FIELD CONTROL INSPECTOR RESPIRATORY PATHOGEN PANEL Routine 09/13/2024 1:50 AM FIELD CONTROL INSPECTOR BLOOD CULTURE Routine 09/13/2024 1:50 AM FIELD CONTROL INSPECTOR EGFR STAT 09/13/2024 1:46 AM FIELD CONTROL INSPECTOR DIFFERENTIAL AUTO STAT 09/13/2024 1:4 6 AM FIELD CONTROL INSPECTOR HEMOGLOBIN A1C Routine 09/13/2024 1:46 AM FIELD CONTROL INSPECTOR TROPONIN T HIGH-SENSITIVITY Routine 09/13/2024 1:46 AM FIELD CONTROL INSPECTOR CBC WITH AUTO DIFFERENTIAL STAT 09/13/2024 1:46 AM FIELD CONTROL INSPECTOR PROTIME-INR STAT 09/13/2024 1:46 AM FIELD CONTROL INSPECTOR APTT STAT 09/13/2024 1:46 AM FIELD CONTROL INSPECTOR PRO B-TYPE NATRIURETIC PEPTIDE STAT 09/13/2024 1:46 AM FIELD CONTROL INSPECTOR PHOSPHORUS STAT 09/13/2024 1:46 AM FIELD CONTROL INSPECTOR MAGNESIUM STAT 09/13/2024 1:46 AM FIELD CONTROL INSPECTOR LACTATE STAT 09/13/2024 1:46 AM FIELD CONTROL INSPECTOR COMPREHENSIVE METABOLIC PANEL STAT 09/13/2024 1:46 AM FIELD CONTROL INSPECTOR TYPE AND SCREEN STAT 09/13/2024 1:46 AM FIELD CONTROL INSPECTOR POCT GLUCOSE DEVICE Routine 09/13/2024 1 :30 AM FIELD CONTROL INSPECTOR SERUM LIPID PANEL Routine 06/26/2014 8:1 1 AM FIELD CONTROL INSPECTOR COLONOSCOPY REPORT 06/07/2014 from Last 3 Months or Most Recently Relevant to Health Maintenance Results * POCT glucose (10/01/2024 4:34 PM FIELD CONTROL INSPECTOR) Glucose, POC 143 70 - 199 mg/dL Comment: For Glucose values <35 mg/dl when Hematocrit is >60 mg/dl,the test may not accurately detect significant hypoglycemia,and testing in the Laboratory should be considered if clinically indicated. Blood 10/01/2024 4:34 PM FIELD CONTROL INSPECTOR 10/01/2024 4:34 PM FIELD CONTROL INSPECTOR Chai Beck MD LAB POCT ORDERABLES - DEVICE Final Result Performing Organization Address [facility] Co de Phone Number [facility] [address] [place] [address] * POCT glucose (10/01/2024 11:48 AM FIELD CONTROL INSPECTOR) Glucose, POC 145 70 - 199 mg/dL Comment: For Glucose values <35 mg/dl when Hematocrit is >60 mg/dl,the test may not accurately detect significant hypoglycemia,and testing in the Laboratory should be considered if clinically indicated. Blood 10/01/2024 11:4 8 AM FIELD CONTROL INSPECTOR 10/01/2024 11:48 AM FIELD CONTROL INSPECTOR Chai Beck MD LAB POCT ORDERABLES - DEVICE Final Result Performing Organization Address City/[facility] Co de Phone Number [facility] [address] [facility] [employer] [address] * XR Chest 1 View (10/01/2024 9:10 AM FIELD CONTROL INSPECTOR) Anatomical Region Laterality Modality Body, Chest N/A Computed Radiogr aphy 10/01/2024 9:17 AM FIELD CONTROL INSPECTOR Impressions 10/01/2024 9:17 AM FIELD CONTROL INSPECTOR Comparison 09/24/2024 Improvement in the left lower lobe and lingular consolidation. There is now a small left pleural effusion. Right lung is clear. There is no pneumothorax. The cardiomediastinal silhouette is unchanged.. Electronically signed by: Phillip Mathis MD Narrative 10/01/2024 9:17 AM FIELD CONTROL INSPECTOR Chest one view HISTORY: Recent pneumonia treated [...] t * (ABNORMAL) eGFR (10/01/2024 6:57 AM FIELD CONTROL INSPECTOR) eGFR 54(L) >=60 mL/min/1. 73 m2 Comment: [...] of Race in Diagnosing Kidney Disease, JASN 2021). The CKD-EPI equation should not be used for patients with unstable renal function and has not been validated in children and those over 70. Current interpretive data was last reviewed 2021. Blood 10/01/2024 6:57 AM FIELD CONTROL INSPECTOR 10/01/2024 7:30 AM FIELD CONTROL INSPECTOR Timothy Augustin MD LAB BLOOD ORDERABLES Final Re sult Performing Organization Address City/[facility]/ZIP Co de Phone Number [facility] [address] Department of [employer] [place] [address] * Magnesium (10/01/2024 6:57 AM FIELD CONTROL INSPECTOR) [facility] Magnesium 1.5 1.4 - 2.5 mg/dL Blood 10/01/2024 6:57 AM FIELD CONTROL INSPECTOR 10/01/2024 7:30 AM FIELD CONTROL INSPECTOR Arnulfo Jordan MD LAB BLOOD ORDERABLES Final Result Performing Organization Address [facility] Co de Phone Number [facility] [address] Department of [employer] [place] [address] * (ABNORMAL) Basic metabolic panel (10/01/2024 6:57 AM FIELD CONTROL INSPECTOR) [facility] Sodium 140 135 - 145 mmol/L Potassium, pl 2.9(L) 3.3 - 4.9 mmol/L [facility] Chloride 108 97 - 110 mmol/L [facility] CO2 22 22 - 32 mmol/L [facility] Anion gap 10 2 - 15 mmol/L [facility] BUN 22 6 - 25 mg/dL [facility] Creatinine 1.23(H) 0.60 - 1.10 mg/dL [facility] Glucose 162 70 - 199 mg/dL [facility] Comment: Interpretive Data Fasting glucose >/= 126 [...] 2022. Calcium 8.0(L) 8.5 - 10.3 mg/dL [facility] Blood 10/01/2024 6:57 AM FIELD CONTROL INSPECTOR 10/01/2024 7:30 AM FIELD CONTROL INSPECTOR Timothy Augustin MD LAB BLOOD ORDERABLES Final Re sult Performing Organization Address [facility] Co de Phone Number [facility] [address] Department of [employer] [place] [address] * POCT glucose (10/01/2024 6:04 AM FIELD CONTROL INSPECTOR) Glucose, POC 179 70 - 199 mg/dL Comment: For Glucose values <35 mg/dl when Hematocrit is >60 mg/dl,the test may not accurately detect significant hypoglycemia,and testing in the Laboratory should be considered if clinically indicated. Blood 10/01/2024 6:04 AM FIELD CONTROL INSPECTOR 10/01/2024 6:04 AM FIELD CONTROL INSPECTOR Result [facility] Arnulfo Jordan MD LAB POCT ORDERABLES - DEVIC E Final Result Performing Organization Address [facility] Co de Phone Number [facility] [address] [facility] [employer] [place] [address] * POCT glucose (10/01/2024 2:00 AM FIELD CONTROL INSPECTOR) Glucose, POC 168 70 - 199 mg/dL Comment: For Glucose values <35 mg/dl when Hematocrit is >60 mg/dl,the test may not accurately detect significant hypoglycemia,and testing in the Laboratory should be considered if clinically indicated. Blood 10/01/2024 2:00 AM FIELD CONTROL INSPECTOR 10/01/2024 2:00 AM FIELD CONTROL INSPECTOR Result [facility] Arnulfo Jordan MD LAB POCT ORDERABLES - DEVIC E Final Result Performing Organization Address [facility] Co de Phone Number [facility] [address] Department [employer] [place] [address] * POCT glucose (09/30/2024 9:45 PM FIELD CONTROL INSPECTOR) Glucose, POC 173 70 - 199 mg/dL Comment: For Glucose values <35 mg/dl when Hematocrit is >60 mg/dl,the test may not accurately detect significant hypoglycemia,and testing in the Laboratory should be considered if clinically indicated. Blood 09/30/2024 9:45 PM FIELD CONTROL INSPECTOR 09/30/2024 9:45 PM FIELD CONTROL INSPECTOR Arnulfo Jordan MD LAB POCT ORDERABLES - DEVIC E Final Result Performing Organization Address [facility] de Phone Number [facility] [address] [place] [address] * (ABNORMAL) POCT glucose (09/30/2024 4:52 PM FIELD CONTROL INSPECTOR) Glucose, POC 213(H) 70 - 199 mg/dL Comment: For Glucose values <35 mg/dl when Hematocrit is >60 mg/dl,the test may not accurately detect significant hypoglycemia,and testing in the Laboratory should be considered if clinically indicated. Blood 09/30/2024 4:52 PM FIELD CONTROL INSPECTOR 09/30/2024 4:52 PM FIELD CONTROL INSPECTOR Result [facility] us Arnulfo Jordan MD LAB POCT ORDERABLES - DEVIC E Final Result Performing Organization Address [facility] de Phone Number [facility] [address] [facility] [place] [address] * POCT glucose (09/30/2024 11:39 AM FIELD CONTROL INSPECTOR) Glucose, POC 139 70 - 199 mg/dL Comment: For Glucose values <35 mg/dl when Hematocrit is >60 mg/dl,the test may not accurately detect significant hypoglycemia,and testing in the Laboratory should be considered if clinically indicated. Blood 09/30/2024 11:3 9 AM FIELD CONTROL INSPECTOR 09/30/2024 11:39 AM FIELD CONTROL INSPECTOR Arnulfo Jordan MD LAB POCT ORDERABLES - DEVIC E Final Result Performing Organization Address [facility] de Phone Number [facility] [address] [facility] [place] [address] * POCT glucose (09/30/2024 8:36 AM FIELD CONTROL INSPECTOR) Glucose, POC 116 70 - 199 mg/dL Comment: For Glucose values <35 mg/dl when Hematocrit is >60 mg/dl,the test may not accurately detect significant hypoglycemia,and testing in the Laboratory should be considered if clinically indicated. Blood 09/30/2024 8:36 AM FIELD CONTROL INSPECTOR 09/30/2024 8:36 AM FIELD CONTROL INSPECTOR Arnulfo Jordan MD LAB POCT ORDERABLES - DEVIC E Final Result Performing Organization Address [facility] de Phone Number [facility] [address] [facility] [employer] [place] [address] * POCT glucose (09/30/2024 5:29 AM FIELD CONTROL INSPECTOR) Glucose, POC 110 70 - 199 mg/dL Comment: For Glucose values <35 mg/dl when Hematocrit is >60 mg/dl,the test may not accurately detect significant hypoglycemia,and testing in the Laboratory should be considered if clinically indicated. Blood 09/30/2024 5:29 AM FIELD CONTROL INSPECTOR 09/30/2024 5:29 AM FIELD CONTROL INSPECTOR Arnulfo Jordan MD LAB POCT ORDERABLES - DEVIC E Final Result Performing Organization Address [facility] Co de Phone Number [facility] [address] [facility] [employer] [place] [address] * POCT glucose (09/30/2024 2:22 AM FIELD CONTROL INSPECTOR) Glucose, POC 183 70 - 199 mg/dL Comment: For Glucose values <35 mg/dl when Hematocrit is >60 mg/dl,the test may not accurately detect significant hypoglycemia,and testing in the Laboratory should be considered if clinically indicated. Blood 09/30/2024 2:22 AM FIELD CONTROL INSPECTOR 09/30/2024 2:22 AM FIELD CONTROL INSPECTOR Arnulfo Jordan MD LAB POCT ORDERABLES - DEVIC E Final Result Performing Organization Address [facility] de Phone Number [facility] [address] [facility] [place] [address] * POCT glucose (09/29/2024 8:35 PM FIELD CONTROL INSPECTOR) Glucose, POC 192 70 - 199 mg/dL Comment: For Glucose values <35 mg/dl when Hematocrit is >60 mg/dl,the test may not accurately detect significant hypoglycemia,and testing in the Laboratory should be considered if clinically indicated. Blood 09/29/2024 8:35 PM FIELD CONTROL INSPECTOR 09/29/2024 8:35 PM FIELD CONTROL INSPECTOR Arnulfo Jordan MD LAB POCT ORDERABLES - DEVIC E Final Result Performing Organization Address [facility] de Phone Number [facility] [address] [facility] [employer] [place] [address] * (ABNORMAL) POCT glucose (09/29/2024 5:35 PM FIELD CONTROL INSPECTOR) Glucose, POC 203(H) 70 - 199 mg/dL Comment: For Glucose values <35 mg/dl when Hematocrit is >60 mg/dl,the test may not accurately detect significant hypoglycemia,and testing in the Laboratory should be considered if clinically indicated. Blood 09/29/2024 5:35 PM FIELD CONTROL INSPECTOR 09/29/2024 5:35 PM FIELD CONTROL INSPECTOR Arnulfo Jordan MD LAB POCT ORDERABLES - DEVIC E Final Result Performing Organization Address [facility] Co de Phone Number [facility] [address] [facility] [employer] [place] [address] * (ABNORMAL) eGFR (09/29/2024 3:33 PM FIELD CONTROL INSPECTOR) eGFR 58(L) >=60 mL/min/1. 73 m2 Comment: [...] last reviewed 2021. Blood 09/29/2024 3:33 PM FIELD CONTROL INSPECTOR 09/29/2024 3:45 PM FIELD CONTROL INSPECTOR us Arnulfo Jordan MD LAB BLOOD ORDERABLES Final Result [facility] [address] Department [place] [address] * (ABNORMAL) Differential, auto (09/29/2024 3:33 PM FIELD CONTROL INSPECTOR) [facility] Neutrophil abs 6.6(H) 1.5 - 6.5 K/cumm Imm gran abs 0.1 0.0 - 0.1 K/cumm [facility] Lymphocyte abs 0.9 0.8 - 3.3 K/cumm [facility] Monocyte abs 0.6 0.2 - 0.8 K/cumm [facility] Eosinophil abs 0.1 0.0 - 0.5 K/cumm [facility] Basophil abs 0.1 0.0 - 0.1 K/cumm [facility] Neutrophil pct 79.1 % [facility] Comment: Interpretive Data Percent cell count reference ranges are not reported, since discordance with absolute values may lead to misinterpretation of CBC data. Current Interpretive Data was last revised on 2017. Imm gran pct 0.6 % [facility] Comment: Interpretive Data Percent cell count reference ranges are not reported, since discordance with absolute values may lead to misinterpretation of CBC data. Current Interpretive Data was last revised on 2017. Lymphocyte pct 11.1 % [facility] Comment: Interpretive Data Percent cell count reference ranges are not reported, since discordance with absolute values may lead to misinterpretation of CBC data. Current Interpretive Data was last revised on 2017. Monocyte pct 7.6 % [facility] Comment: Interpretive Data Percent cell count reference ranges are not reported, since discordance with absolute values may lead to misinterpretation of CBC data. Current Interpretive Data was last revised on 2017. Eosinophil pct 0.6 % [facility] Comment: Interpretive Data Percent cell count reference ranges are not reported, since discordance with absolute values may lead to misinterpretation of CBC data. Current Interpretive Data was last revised on 2017. Basophil pct 1.0 % [facility] Comment: Interpretive Data Percent cell count reference ranges are not reported, since discordance with absolute values may lead to misinterpretation of CBC data. Current Interpretive Data was last revised on 2017. Blood 09/29/2024 3:33 PM FIELD CONTROL INSPECTOR 09/29/2024 3:45 PM FIELD CONTROL INSPECTOR Arnulfo Jordan MD LAB BLOOD ORDERABLES Final Result [facility] [address] Department of Laboratories [place], [place] [id number] * (ABNORMAL) CBC with auto differential (09/29/2024 3:33 PM FIELD CONTROL INSPECTOR) WBC 8.3 3.8 - 9.9 K/cumm Hgb 7.8(L) 11.9 - 15.5 g/dL [facility] Hct 24.8(L) 35.6 - 45.5 % [facility] Plt 291 150 - 400 K/cumm [facility] MPV 10.9 9.1 - 12.3 fL [facility] RBC 2.59(L) 3.90 - 5.20 M/cumm [facility] MCV 95.8 81.3 - 96.4 fL [facility] MCH 30.1 27.1 - 33.3 pg [facility] MCHC 31.5(L) 32.3 - 35.7 g/dL [facility] RDW CV 16.6(H) 11.1 - 14.9 % [facility] RDW SD 56.7(H) 35.7 - 48.1 fL [facility] NRBC abs 0.02(H) 0.00 - 0.01 K/cumm [facility] Blood 09/29/2024 3:33 PM FIELD CONTROL INSPECTOR 09/29/2024 3:45 PM FIELD CONTROL INSPECTOR us Arnulfo Jordan MD LAB BLOOD ORDERABLES Final Result [facility] [address] Department [place] [address] * (ABNORMAL) Comprehensive metabolic panel (09/29/2024 3:33 PM FIELD CONTROL INSPECTOR) Sodium 141 135 - 145 mmol/L Potassium, pl 2.9(L) 3.3 - 4.9 mmol/L [facility] Chloride 110 97 - 110 mmol/L [facility] CO2 20(L) 22 - 32 mmol/L [facility] Anion gap 11 2 - 15 mmol/L [facility] BUN 19 6 - 25 mg/dL [facility] Creatinine 1.15(H) 0.60 - 1.10 mg/dL [facility] Glucose 207(H) 70 - 199 mg/dL [facility] Comment: Interpretive Data Fasting glucose >/= 126 [...] 2022. Calcium 7.7(L) 8.5 - 10.3 mg/dL [facility] Bilirubin, total 0.2 0.1 - 1.2 mg/dL [facility] Protein, pl 6.4(L) 6.5 - 8.5 g/dL [facility] Albumin 1.9(L) 3.5 - 5.0 g/dL [facility] Alk phos 170(H) 40 - 130 Units/L [facility] ALT 12 7 - 45 Units/L [facility] AST 27 10 - 45 Units/L [facility] Comment:Slightly Hemolyzed S pecimen Blood 09/29/2024 3:33 PM FIELD CONTROL INSPECTOR 09/29/2024 3:45 PM FIELD CONTROL INSPECTOR Arnulfo Jordan MD LAB BLOOD ORDERABLES Final Result Performing Organization Address [facility] Co de Phone Number [facility] [address] [employer] [place], [place] [id number] * POCT glucose (09/29/2024 1:43 PM FIELD CONTROL INSPECTOR) Glucose, POC 164 70 - 199 mg/dL Comment: For Glucose values <35 mg/dl when Hematocrit is >60 mg/dl,the test may not accurately detect significant hypoglycemia,and testing in the Laboratory should be considered if clinically indicated. Blood 09/29/2024 1:43 PM FIELD CONTROL INSPECTOR 09/29/2024 1:43 PM FIELD CONTROL INSPECTOR Arnulfo Jordan MD LAB POCT ORDERABLES - DEVIC E Final Result Performing Organization Address [facility]/ZIP Co de Phone Number [facility] [address] [employer] [place], [place] [id number] * POCT glucose (09/29/2024 9:49 AM FIELD CONTROL INSPECTOR) Glucose, POC 133 70 - 199 mg/dL Comment: For Glucose values <35 mg/dl when Hematocrit is >60 mg/dl,the test may not accurately detect significant hypoglycemia,and testing in the Laboratory should be considered if clinically indicated. Blood 09/29/2024 9:49 AM FIELD CONTROL INSPECTOR 09/29/2024 9:49 AM FIELD CONTROL INSPECTOR Arnulfo Jordan MD LAB POCT ORDERABLES - DEVIC E Final Result Performing Organization Address [facility] de Phone Number [facility] [address] [facility] [employer] [place] [address] * POCT glucose (09/29/2024 7:27 AM FIELD CONTROL INSPECTOR) Glucose, POC 114 70 - 199 mg/dL Comment: For Glucose values <35 mg/dl when Hematocrit is >60 mg/dl,the test may not accurately detect significant hypoglycemia,and testing in the Laboratory should be considered if clinically indicated. Blood 09/29/2024 7:27 AM FIELD CONTROL INSPECTOR 09/29/2024 7:27 AM FIELD CONTROL INSPECTOR Arnulfo Jordan MD LAB POCT ORDERABLES - DEVIC E Final Result Performing Organization Address [facility] de Phone Number [facility] [address] [facility] [employer] [place] [address] * POCT glucose (09/29/2024 5:31 AM FIELD CONTROL INSPECTOR) Glucose, POC 115 70 - 199 mg/dL Comment: For Glucose values <35 mg/dl when Hematocrit is >60 mg/dl,the test may not accurately detect significant hypoglycemia,and testing in the Laboratory should be considered if clinically indicated. Blood 09/29/2024 5:31 AM FIELD CONTROL INSPECTOR 09/29/2024 5:31 AM FIELD CONTROL INSPECTOR Arnulfo Jordan MD LAB POCT ORDERABLES - DEVIC E Final Result Performing Organization Address [facility] de Phone Number [facility] [address] [place] [address] * POCT glucose (09/29/2024 1:25 AM FIELD CONTROL INSPECTOR) Glucose, POC 108 70 - 199 mg/dL Comment: For Glucose values <35 mg/dl when Hematocrit is >60 mg/dl,the test may not accurately detect significant hypoglycemia,and testing in the Laboratory should be considered if clinically indicated. Blood 09/29/2024 1:25 AM FIELD CONTROL INSPECTOR 09/29/2024 1:25 AM FIELD CONTROL INSPECTOR Arnulfo Jordan MD LAB POCT ORDERABLES - DEVIC E Final Result Performing Organization Address City/[facility] Co de Phone Number [facility] [address] [place] [address] * POCT glucose (09/28/2024 9:14 PM FIELD CONTROL INSPECTOR) Glucose, POC 106 70 - 199 mg/dL Comment: For Glucose values <35 mg/dl when Hematocrit is >60 mg/dl,the test may not accurately detect significant hypoglycemia,and testing in the Laboratory should be considered if clinically indicated. Blood 09/28/2024 9:14 PM FIELD CONTROL INSPECTOR 09/28/2024 9:14 PM FIELD CONTROL INSPECTOR Arnulfo Jordan MD LAB POCT ORDERABLES - DEVIC E Final Result Performing Organization Address City/[facility]/ZIP Co de Phone Number [facility] [address] [place] [address] * POCT glucose (09/28/2024 5:12 PM FIELD CONTROL INSPECTOR) Glucose, POC 161 70 - 199 mg/dL Comment: For Glucose values <35 mg/dl when Hematocrit is >60 mg/dl,the test may not accurately detect significant hypoglycemia,and testing in the Laboratory should be considered if clinically indicated. Blood 09/28/2024 5:12 PM FIELD CONTROL INSPECTOR 09/28/2024 5:12 PM FIELD CONTROL INSPECTOR Arnulfo Jordan MD LAB POCT ORDERABLES - DEVIC E Final Result Performing Organization Address [facility] de Phone Number [facility] [address] [facility] [employer] [place], [place] [id number] * POCT glucose (09/28/2024 1:43 PM FIELD CONTROL INSPECTOR) Glucose, POC 173 70 - 199 mg/dL Comment: For Glucose values <35 mg/dl when Hematocrit is >60 mg/dl,the test may not accurately detect significant hypoglycemia,and testing in the Laboratory should be considered if clinically indicated. Blood 09/28/2024 1:43 PM FIELD CONTROL INSPECTOR 09/28/2024 1:43 PM FIELD CONTROL INSPECTOR Arnulfo Jordan MD LAB POCT ORDERABLES - DEVIC E Final Result Performing Organization Address [facility] de Phone Number [facility] [address] [facility] [employer] [place] [address] * POCT glucose (09/28/2024 9:16 AM FIELD CONTROL INSPECTOR) Glucose, POC 124 70 - 199 mg/dL Comment: For Glucose values <35 mg/dl when Hematocrit is >60 mg/dl,the test may not accurately detect significant hypoglycemia,and testing in the Laboratory should be considered if clinically indicated. Blood 09/28/2024 9:16 AM FIELD CONTROL INSPECTOR 09/28/2024 9:16 AM FIELD CONTROL INSPECTOR Arnulfo Jordan MD LAB POCT ORDERABLES - DEVIC E Final Result Performing Organization Address [facility] de Phone Number [facility] [address] [facility] [employer] [place], [place] [id number] * (ABNORMAL) eGFR (09/28/2024 7:09 AM FIELD CONTROL INSPECTOR) eGFR 58(L) >=60 mL/min/1. 73 m2 Comment: [...] last reviewed 2021. Blood 09/28/2024 7:09 AM FIELD CONTROL INSPECTOR 09/28/2024 7:45 AM FIELD CONTROL INSPECTOR Arnulfo Jordan MD LAB BLOOD ORDERABLES Final Result [facility] [address] Department [place] [address] * (ABNORMAL) Differential, auto (09/28/2024 7:09 AM FIELD CONTROL INSPECTOR) Neutrophil abs 5.7 1.5 - 6.5 K/cumm Imm gran abs 0.0 0.0 - 0.1 K/cumm [facility] Lymphocyte abs 0.7(L) 0.8 - 3.3 K/cumm [facility] Monocyte abs 0.5 0.2 - 0.8 K/cumm [facility] Eosinophil abs 0.1 0.0 - 0.5 K/cumm [facility] Basophil abs 0.1 0.0 - 0.1 K/cumm [facility] Neutrophil pct 80.9 % [facility] Comment: Interpretive Data Percent cell count reference ranges are not reported, since discordance with absolute values may lead to misinterpretation of CBC data. Current Interpretive Data was last revised on 2017. Imm gran pct 0.4 % [facility] Comment: Interpretive Data Percent cell count reference ranges are not reported, since discordance with absolute values may lead to misinterpretation of CBC data. Current Interpretive Data was last revised on 2017. Lymphocyte pct 9.3 % [facility] Comment: Interpretive Data Percent cell count reference ranges are not reported, since discordance with absolute values may lead to misinterpretation of CBC data. Current Interpretive Data was last revised on 2017. Monocyte pct 6.9 % [facility] Comment: Interpretive Data Percent cell count reference ranges are not reported, since discordance with absolute values may lead to misinterpretation of CBC data. Current Interpretive Data was last revised on 2017. Eosinophil pct 1.5 % [facility] Comment: Interpretive Data Percent cell count reference ranges are not reported, since discordance with absolute values may lead to misinterpretation of CBC data. Current Interpretive Data was last revised on 2017. Basophil pct 1.0 % [facility] Comment: Interpretive Data Percent cell count reference ranges are not reported, since discordance with absolute values may lead to misinterpretation of CBC data. Current Interpretive Data was last revised on 2017. Blood 09/28/2024 7:09 AM FIELD CONTROL INSPECTOR 09/28/2024 7:45 AM FIELD CONTROL INSPECTOR Arnulfo Jordan MD LAB BLOOD ORDERABLES Final Result [facility] [address] Department [place] [address] * (ABNORMAL) CBC with auto differential (09/28/2024 7:09 AM FIELD CONTROL INSPECTOR) WBC 7.1 3.8 - 9.9 K/cumm Hgb 7.3(L) 11.9 - 15.5 g/dL [facility] Hct 24.5(L) 35.6 - 45.5 % [facility] Plt 285 150 - 400 K/cumm [facility] MPV 11.3 9.1 - 12.3 fL [facility] RBC 2.54(L) 3.90 - 5.20 M/cumm [facility] MCV 96.5(H) 81.3 - 96.4 fL [facility] MCH 28.7 27.1 - 33.3 pg [facility] MCHC 29.8(L) 32.3 - 35.7 g/dL [facility] RDW CV 16.5(H) 11.1 - 14.9 % [facility] RDW SD 57.2(H) 35.7 - 48.1 fL [facility] NRBC abs 0.00 0.00 - 0.01 K/cumm [facility] Blood 09/28/2024 7:09 AM FIELD CONTROL INSPECTOR 09/28/2024 7:45 AM FIELD CONTROL INSPECTOR us Arnulfo Jordan MD LAB BLOOD ORDERABLES Final Result [facility] [address] Department [place] [address] * (ABNORMAL) Comprehensive metabolic panel (09/28/2024 7:09 AM FIELD CONTROL INSPECTOR) Sodium 142 135 - 145 mmol/L Potassium, pl 3.3 3.3 - 4.9 mmol/L [facility] Chloride 109 97 - 110 mmol/L [facility] CO2 21(L) 22 - 32 mmol/L [facility] Anion gap 12 2 - 15 mmol/L [facility] BUN 24 6 - 25 mg/dL [facility] Creatinine 1.15(H) 0.60 - 1.10 mg/dL [facility] Glucose 111 70 - 199 mg/dL [facility] Comment: Interpretive Data Fasting glucose >/= 126 [...] 2022. Calcium 8.1(L) 8.5 - 10.3 mg/dL [facility] Bilirubin, total 0.2 0.1 - 1.2 mg/dL [facility] Protein, pl 6.3(L) 6.5 - 8.5 g/dL [facility] Albumin 1.9(L) 3.5 - 5.0 g/dL [facility] Alk phos 163(H) 40 - 130 Units/L [facility] ALT 10 7 - 45 Units/L [facility] AST 28 10 - 45 Units/L [facility] Blood 09/28/2024 7:09 AM FIELD CONTROL INSPECTOR 09/28/2024 7:45 AM FIELD CONTROL INSPECTOR Arnulfo Jordan MD LAB BLOOD ORDERABLES Final Result Performing Organization Address [facility] Co de Phone Number [facility] [address] [facility] [employer] [place] [address] * POCT glucose (09/28/2024 5:42 AM FIELD CONTROL INSPECTOR) Glucose, POC 123 70 - 199 mg/dL Comment: For Glucose values <35 mg/dl when Hematocrit is >60 mg/dl,the test may not accurately detect significant hypoglycemia,and testing in the Laboratory should be considered if clinically indicated. Blood 09/28/2024 5:42 AM FIELD CONTROL INSPECTOR 09/28/2024 5:42 AM FIELD CONTROL INSPECTOR Arnulfo Jordan MD LAB POCT ORDERABLES - DEVIC E Final Result Performing Organization Address City/[facility]/ZIP Co de Phone Number [facility] [address] [facility] [employer] [place] [address] * POCT glucose (09/28/2024 1:31 AM FIELD CONTROL INSPECTOR) Glucose, POC 125 70 - 199 mg/dL Comment: For Glucose values <35 mg/dl when Hematocrit is >60 mg/dl,the test may not accurately detect significant hypoglycemia,and testing in the Laboratory should be considered if clinically indicated. Blood 09/28/2024 1:31 AM FIELD CONTROL INSPECTOR 09/28/2024 1:31 AM FIELD CONTROL INSPECTOR Arnulfo Jordan MD LAB POCT ORDERABLES - DEVIC E Final Result Performing Organization Address [facility] de Phone Number [facility] [address] [facility] [employer] [place] [address] * POCT glucose (09/27/2024 9:14 PM FIELD CONTROL INSPECTOR) Glucose, POC 136 70 - 199 mg/dL Comment: For Glucose values <35 mg/dl when Hematocrit is >60 mg/dl,the test may not accurately detect significant hypoglycemia,and testing in the Laboratory should be considered if clinically indicated. Blood 09/27/2024 9:14 PM FIELD CONTROL INSPECTOR 09/27/2024 9:14 PM FIELD CONTROL INSPECTOR Arnulfo Jordan MD LAB POCT ORDERABLES - DEVIC E Final Result Performing Organization Address [facility] de Phone Number [facility] [address] [facility] [employer] [place] [address] * POCT glucose (09/27/2024 5:25 PM FIELD CONTROL INSPECTOR) Glucose, POC 112 70 - 199 mg/dL Comment: For Glucose values <35 mg/dl when Hematocrit is >60 mg/dl,the test may not accurately detect significant hypoglycemia,and testing in the Laboratory should be considered if clinically indicated. Blood 09/27/2024 5:25 PM FIELD CONTROL INSPECTOR 09/27/2024 5:25 PM FIELD CONTROL INSPECTOR Arnulfo Jordan MD LAB POCT ORDERABLES - DEVIC E Final Result Performing Organization Address [facility] Co de Phone Number [facility] [address] [facility] [employer] [place] [address] * POCT glucose (09/27/2024 3:13 PM FIELD CONTROL INSPECTOR) Glucose, POC 101 70 - 199 mg/dL Comment: For Glucose values <35 mg/dl when Hematocrit is >60 mg/dl,the test may not accurately detect significant hypoglycemia,and testing in the Laboratory should be considered if clinically indicated. Blood 09/27/2024 3:13 PM FIELD CONTROL INSPECTOR 09/27/2024 3:13 PM FIELD CONTROL INSPECTOR us Arnulfo Jordan MD LAB POCT ORDERABLES - DEVIC E Final Result [facility] [address] Department [place] [address] * [place] Modified Barium Swallow W Video (09/27/2024 2:20 PM FIELD CONTROL INSPECTOR) Anatomical Region Laterality Modality Head and Neck N/A Radio Fluoroscop y 09/27/2024 2:33 PM FIELD CONTROL INSPECTOR Impressions 09/27/2024 3:03 PM FIELD CONTROL INSPECTOR 1. There is flash laryngeal penetration with [...] Zion Rodriguez M.D. Narrative 09/27/2024 3:03 PM FIELD CONTROL INSPECTOR EXAMINATION: MODIFIED BARIUM SWALLOW 09/27/2024 HISTORY: Dysphagia. [...] Result * POCT glucose (09/27/2024 10:05 AM FIELD CONTROL INSPECTOR) Glucose, POC 89 70 - 199 mg/dL Comment: For Glucose values <35 mg/dl when Hematocrit is >60 mg/dl,the test may not accurately detect significant hypoglycemia,and testing in the Laboratory should be considered if clinically indicated. Blood 09/27/2024 10:0 5 AM FIELD CONTROL INSPECTOR 09/27/2024 10:05 AM FIELD CONTROL INSPECTOR us Arnulfo Jordan MD LAB POCT ORDERABLES - DEVIC E Final Result [facility] [address] Department of [employer] [place] [address] * Iron profile - Add on lab test (09/27/2024 8:43 AM FIELD CONTROL INSPECTOR) [facility] Acceptable Yes Blood 09/27/2024 8:43 AM FIELD CONTROL INSPECTOR 09/27/2024 8:43 AM FIELD CONTROL INSPECTOR Narrative [facility] - 09/27/2024 8:44 AM FIELD CONTROL INSPECTOR Name of Test->Iron profile Arnulfo Jordan MD LAB BLOOD ORDERABLES Final Result Performing Organization Address [facility]/ZIP Co de Phone Number [facility] [address] Department [place] [address] * POCT glucose (09/27/2024 5:57 AM FIELD CONTROL INSPECTOR) [facility] Glucose, POC 74 70 - 199 mg/dL Comment: For Glucose values <35 mg/dl when Hematocrit is >60 mg/dl,the test may not accurately detect significant hypoglycemia,and testing in the Laboratory should be considered if clinically indicated. Blood 09/27/2024 5:57 AM FIELD CONTROL INSPECTOR 09/27/2024 5:57 AM FIELD CONTROL INSPECTOR Arnulfo Jordan MD LAB POCT ORDERABLES - DEVIC E Final Result Performing Organization Address [facility]/ZIP Co de Phone Number [facility] [address] Department [place] [address] * (ABNORMAL) eGFR (09/27/2024 5:42 AM FIELD CONTROL INSPECTOR) [facility] eGFR 58(L) >=60 mL/min/1. 73 m2 [...] last reviewed 2021. Blood 09/27/2024 5:42 AM FIELD CONTROL INSPECTOR 09/27/2024 5:55 AM FIELD CONTROL INSPECTOR us Arnulfo Jordan MD LAB BLOOD ORDERABLES Final Result [facility] [address] Department [place] [address] * (ABNORMAL) Differential, auto (09/27/2024 5:42 AM FIELD CONTROL INSPECTOR) Neutrophil abs 7.1(H) 1.5 - 6.5 K/cumm Imm gran abs 0.0 0.0 - 0.1 K/cumm [facility] Lymphocyte abs 0.7(L) 0.8 - 3.3 K/cumm [facility] Monocyte abs 0.6 0.2 - 0.8 K/cumm [facility] Eosinophil abs 0.2 0.0 - 0.5 K/cumm [facility] Basophil abs 0.1 0.0 - 0.1 K/cumm [facility] Neutrophil pct 80.9 % [facility] Comment: Interpretive Data Percent cell count reference ranges are not reported, since discordance with absolute values may lead to misinterpretation of CBC data. Current Interpretive Data was last revised on 2017. Imm gran pct 0.5 % [facility] Comment: Interpretive Data Percent cell count reference ranges are not reported, since discordance with absolute values may lead to misinterpretation of CBC data. Current Interpretive Data was last revised on 2017. Lymphocyte pct 8.4 % [facility] Comment: Interpretive Data Percent cell count reference ranges are not reported, since discordance with absolute values may lead to misinterpretation of CBC data. Current Interpretive Data was last revised on 2017. Monocyte pct 6.6 % [facility] Comment: Interpretive Data Percent cell count reference ranges are not reported, since discordance with absolute values may lead to misinterpretation of CBC data. Current Interpretive Data was last revised on 2017. Eosinophil pct 2.6 % [facility] Comment: Interpretive Data Percent cell count reference ranges are not reported, since discordance with absolute values may lead to misinterpretation of CBC data. Current Interpretive Data was last revised on 2017. Basophil pct 1.0 % [facility] Comment: Interpretive Data Percent cell count reference ranges are not reported, since discordance with absolute values may lead to misinterpretation of CBC data. Current Interpretive Data was last revised on 2017. Blood 09/27/2024 5:42 AM FIELD CONTROL INSPECTOR 09/27/2024 5:55 AM FIELD CONTROL INSPECTOR Arnulfo Jordan MD LAB BLOOD ORDERABLES Final Result Performing Organization Address City/[facility]/ZIP Co de Phone Number [facility] [address] Department [place] [address] * (ABNORMAL) Iron profile w/ IBC (09/27/2024 5:42 AM FIELD CONTROL INSPECTOR) [facility] Iron 25(L) 35 - 145 mcg/dL TIBC 156(L) 250 - 400 mcg/dL [facility] Transferrin saturation 16(L) 20 - 50 % [facility] Blood 09/27/2024 5:42 AM FIELD CONTROL INSPECTOR 09/27/2024 5:55 AM FIELD CONTROL INSPECTOR Arnulfo Jordan MD LAB BLOOD ORDERABLES Final Result Performing Organization Address [facility]/ZIP Co de Phone Number [facility] [address] Department [place] [address] * (ABNORMAL) CBC with auto differential (09/27/2024 5:42 AM FIELD CONTROL INSPECTOR) Pathologist [facility] WBC 8.8 3.8 - 9.9 K/cumm Hgb 7.2(L) 11.9 - 15.5 g/dL [facility] Hct 24.6(L) 35.6 - 45.5 % [facility] Plt 280 150 - 400 K/cumm [facility] MPV 11.4 9.1 - 12.3 fL [facility] RBC 2.60(L) 3.90 - 5.20 M/cumm [facility] MCV 94.6 81.3 - 96.4 fL [facility] MCH 27.7 27.1 - 33.3 pg [facility] MCHC 29.3(L) 32.3 - 35.7 g/dL [facility] RDW CV 16.1(H) 11.1 - 14.9 % [facility] RDW SD 54.5(H) 35.7 - 48.1 fL [facility] NRBC abs 0.00 0.00 - 0.01 K/cumm [facility] Blood 09/27/2024 5:42 AM FIELD CONTROL INSPECTOR 09/27/2024 5:55 AM FIELD CONTROL INSPECTOR us Arnulfo Jordan MD LAB BLOOD ORDERABLES Final Result [facility] [address] Department [place] [address] * (ABNORMAL) Comprehensive metabolic panel (09/27/2024 5:42 AM FIELD CONTROL INSPECTOR) Sodium 143 135 - 145 mmol/L Potassium, pl 3.4 3.3 - 4.9 mmol/L [facility] Chloride 110 97 - 110 mmol/L [facility] CO2 22 22 - 32 mmol/L [facility] Anion gap 11 2 - 15 mmol/L [facility] BUN 25 6 - 25 mg/dL [facility] Creatinine 1.16(H) 0.60 - 1.10 mg/dL [facility] Glucose 77 70 - 199 mg/dL [facility] Comment: Interpretive Data Fasting glucose >/= 126 [...] 2022. Calcium 8.0(L) 8.5 - 10.3 mg/dL [facility] Bilirubin, total 0.3 0.1 - 1.2 mg/dL [facility] Protein, pl 6.0(L) 6.5 - 8.5 g/dL [facility] Albumin 2.1(L) 3.5 - 5.0 g/dL [facility] Alk phos 152(H) 40 - 130 Units/L [facility] ALT 12 7 - 45 Units/L [facility] AST 31 10 - 45 Units/L [facility] Blood 09/27/2024 5:42 AM FIELD CONTROL INSPECTOR 09/27/2024 5:55 AM FIELD CONTROL INSPECTOR Arnulfo Jordan MD LAB BLOOD ORDERABLES Final Result Performing Organization Address City/[facility]/ZIP Co de Phone Number [facility] [address] [place] [address] * POCT glucose (09/27/2024 2:14 AM FIELD CONTROL INSPECTOR) [facility] Glucose, POC 78 70 - 199 mg/dL Comment: For Glucose values <35 mg/dl when Hematocrit is >60 mg/dl,the test may not accurately detect significant hypoglycemia,and testing in the Laboratory should be considered if clinically indicated. Blood 09/27/2024 2:14 AM FIELD CONTROL INSPECTOR 09/27/2024 2:14 AM FIELD CONTROL INSPECTOR Arnulfo Jordan MD LAB POCT ORDERABLES - DEVIC E Final Result Performing Organization Address City/[facility]/ZIP Co de Phone Number [facility] [address] Department [employer] [place] [address] * POCT glucose (09/26/2024 9:41 PM FIELD CONTROL INSPECTOR) Glucose, POC 79 70 - 199 mg/dL Comment: For Glucose values <35 mg/dl when Hematocrit is >60 mg/dl,the test may not accurately detect significant hypoglycemia,and testing in the Laboratory should be considered if clinically indicated. Blood 09/26/2024 9:41 PM FIELD CONTROL INSPECTOR 09/26/2024 9:41 PM FIELD CONTROL INSPECTOR Result [facility] Arnulfo Jordan MD LAB POCT ORDERABLES - DEVIC E Final Result Performing Organization Address [facility] de Phone Number [facility] [address] [facility] [employer] [place] [address] * POCT glucose (09/26/2024 6:18 PM FIELD CONTROL INSPECTOR) Glucose, POC 91 70 - 199 mg/dL Comment: For Glucose values <35 mg/dl when Hematocrit is >60 mg/dl,the test may not accurately detect significant hypoglycemia,and testing in the Laboratory should be considered if clinically indicated. Blood 09/26/2024 6:18 PM FIELD CONTROL INSPECTOR 09/26/2024 6:18 PM FIELD CONTROL INSPECTOR Result [facility] Arnulfo Jordan MD LAB POCT ORDERABLES - DEVIC E Final Result Performing Organization Address [facility] Co de Phone Number [facility] [address] [facility] [employer] [place] [address] * POCT glucose (09/26/2024 2:51 PM FIELD CONTROL INSPECTOR) Glucose, POC 89 70 - 199 mg/dL Comment: For Glucose values <35 mg/dl when Hematocrit is >60 mg/dl,the test may not accurately detect significant hypoglycemia,and testing in the Laboratory should be considered if clinically indicated. Blood 09/26/2024 2:51 PM FIELD CONTROL INSPECTOR 09/26/2024 2:51 PM FIELD CONTROL INSPECTOR Result [facility] Arnulfo Jordan MD LAB POCT ORDERABLES - DEVIC E Final Result Performing Organization Address [facility] Co de Phone Number [facility] [address] Department of [employer] [place] [address] * (ABNORMAL) CBC with auto differential (09/26/2024 2:03 PM FIELD CONTROL INSPECTOR) [facility] WBC 8.6 3.8 - 9.9 K/cumm Hgb 7.3(L) 11.9 - 15.5 g/dL [facility] Hct 24.2(L) 35.6 - 45.5 % [facility] Plt 308 150 - 400 K/cumm [facility] MPV 11.5 9.1 - 12.3 fL [facility] RBC 2.52(L) 3.90 - 5.20 M/cumm [facility] MCV 96.0 81.3 - 96.4 fL [facility] MCH 29.0 27.1 - 33.3 pg [facility] MCHC 30.2(L) 32.3 - 35.7 g/dL [facility] RDW CV 16.0(H) 11.1 - 14.9 % [facility] RDW SD 55.1(H) 35.7 - 48.1 fL [facility] NRBC abs 0.00 0.00 - 0.01 K/cumm [facility] Blood 09/26/2024 2:03 PM FIELD CONTROL INSPECTOR 09/26/2024 2:11 PM FIELD CONTROL INSPECTOR Arnulfo Jordan MD LAB BLOOD ORDERABLES Final Result Performing Organization Address [facility]/ZIP Co de Phone Number [facility] [address] Department of [employer] [place], [place] [id number] * (ABNORMAL) eGFR (09/26/2024 1:25 PM FIELD CONTROL INSPECTOR) [facility] eGFR 57(L) >=60 mL/min/1. 73 m2 [...] last reviewed 2021. Blood 09/26/2024 1:25 PM FIELD CONTROL INSPECTOR 09/26/2024 1:33 PM FIELD CONTROL INSPECTOR us Arnulfo Jordan MD LAB BLOOD ORDERABLES Final Result [facility] [address] Department [place] [address] * Differential, auto (09/26/2024 1:25 PM FIELD CONTROL INSPECTOR) Neutrophil abs See Comment 1.5 - 6.5 Comment:CBC to be recollecte d due to possible falsely low Hgb on09/26/2024 13:53:40 FIELD CONTROL INSPECTOR [id number] Imm gran abs See Comment 0.0 - 0.1 [facility] Comment:CBC to be recollecte d due to possible falsely low Hgb on09/26/2024 13:53:40 FIELD CONTROL INSPECTOR [id number] Lymphocyte abs See Comment 0.8 - 3.3 [facility] Comment:CBC to be recollecte d due to possible falsely low Hgb on09/26/2024 13:53:40 FIELD CONTROL INSPECTOR [id number] Monocyte abs See Comment 0.2 - 0.8 [facility] Comment:CBC to be recollecte d due to possible falsely low Hgb on09/26/2024 13:53:40 FIELD CONTROL INSPECTOR [id number] Eosinophil abs See Comment 0.0 - 0.5 [facility] Comment:CBC to be recollecte d due to possible falsely low Hgb on09/26/2024 13:53:40 FIELD CONTROL INSPECTOR [id number] Basophil abs See Comment 0.0 - 0.1 [facility] Comment:CBC to be recollecte d due to possible falsely low Hgb on09/26/2024 13:53:40 FIELD CONTROL INSPECTOR [id number] Neutrophil pct See Comment [facility] Comment: CBC to be recollected due to possible falsely low Hgb on09/26/2024 13:53:40 FIELD CONTROL INSPECTOR [id number] Interpretive Data Percent cell count reference ranges are not reported, since discordance with absolute values may lead to misinterpretation of CBC data. Current Interpretive Data was last revised on 2017. Imm gran pct See Comment [facility] Comment: CBC to be recollected due to possible falsely low Hgb on09/26/2024 13:53:40 FIELD CONTROL INSPECTOR [id number] Interpretive Data Percent cell count reference ranges are not reported, since discordance with absolute values may lead to misinterpretation of CBC data. Current Interpretive Data was last revised on 2017. Lymphocyte pct See Comment [facility] Comment: CBC to be recollected due to possible falsely low Hgb on09/26/2024 13:53:40 FIELD CONTROL INSPECTOR [id number] Interpretive Data Percent cell count reference ranges are not reported, since discordance with absolute values may lead to misinterpretation of CBC data. Current Interpretive Data was last revised on 2017. Monocyte pct See Comment [facility] Comment: CBC to be recollected due to possible falsely low Hgb on09/26/2024 13:53:40 FIELD CONTROL INSPECTOR [id number] Interpretive Data Percent cell count reference ranges are not reported, since discordance with absolute values may lead to misinterpretation of CBC data. Current Interpretive Data was last revised on 2017. Eosinophil pct See Comment [facility] Comment: CBC to be recollected due to possible falsely low Hgb on09/26/2024 13:53:40 FIELD CONTROL INSPECTOR [id number] Interpretive Data Percent cell count reference ranges are not reported, since discordance with absolute values may lead to misinterpretation of CBC data. Current Interpretive Data was last revised on 2017. Basophil pct See Comment [facility] Comment: CBC to be recollected due to possible falsely low Hgb on09/26/2024 13:53:40 FIELD CONTROL INSPECTOR [id number] Interpretive Data Percent cell count reference ranges are not reported, since discordance with absolute values may lead to misinterpretation of CBC data. Current Interpretive Data was last revised on 2017. Blood 09/26/2024 1:25 PM FIELD CONTROL INSPECTOR 09/26/2024 1:33 PM FIELD CONTROL INSPECTOR Arnulfo Jordan MD LAB BLOOD ORDERABLES Edited Result - Final [facility] [address] Department [place] [address] * CBC with auto differential (09/26/2024 1:25 PM FIELD CONTROL INSPECTOR) WBC See Comment 3.8 - 9.9 Comment: Test results inaccurately filed to this patient's record. Test will be credited. CBC to be recollected due to possible falsely low Hgb on09/26/2024 13:53:40 FIELD CONTROL INSPECTOR [id number] Hgb See Comment 11.9 - 15.5 [facility] Comment: Test results inaccurately filed to this patient's record. Test will be credited. CBC to be recollected due to possible falsely low Hgb on09/26/2024 13:53:40 FIELD CONTROL INSPECTOR [id number] Hct See Comment 35.6 - 45.5 [facility] Comment: Test results inaccurately filed to this patient's record. Test will be credited. CBC to be recollected due to possible falsely low Hgb on09/26/2024 13:53:40 FIELD CONTROL INSPECTOR [id number] Plt See Comment 150 - 400 K/cumm [facility] Comment: Test results inaccurately filed to this patient's record. Test will be credited. CBC to be recollected due to possible falsely low Hgb on09/26/2024 13:53:40 FIELD CONTROL INSPECTOR [id number] MPV See Comment 9.1 - 12.3 [facility] Comment: Test results inaccurately filed to this patient's record. Test will be credited. CBC to be recollected due to possible falsely low Hgb on09/26/2024 13:53:40 FIELD CONTROL INSPECTOR [id number] RBC See Comment 3.90 - 5.20 [facility] Comment: Test results inaccurately filed to this patient's record. Test will be credited. CBC to be recollected due to possible falsely low Hgb on09/26/2024 13:53:40 FIELD CONTROL INSPECTOR [id number] MCV See Comment 81.3 - 96.4 [facility] Comment: Test results inaccurately filed to this patient's record. Test will be credited. CBC to be recollected due to possible falsely low Hgb on09/26/2024 13:53:40 FIELD CONTROL INSPECTOR [id number] MCH See Comment 27.1 - 33.3 [facility] Comment: Test results inaccurately filed to this patient's record. Test will be credited. CBC to be recollected due to possible falsely low Hgb on09/26/2024 13:53:40 FIELD CONTROL INSPECTOR [id number] MCHC See Comment 32.3 - 35.7 [facility] Comment: Test results inaccurately filed to this patient's record. Test will be credited. CBC to be recollected due to possible falsely low Hgb on09/26/2024 13:53:40 FIELD CONTROL INSPECTOR [id number] RDW CV See Comment 11.1 - 14.9 [facility] Comment: Test results inaccurately filed to this patient's record. Test will be credited. CBC to be recollected due to possible falsely low Hgb on09/26/2024 13:53:40 FIELD CONTROL INSPECTOR [id number] RDW SD See Comment 35.7 - 48.1 [facility] Comment: Test results inaccurately filed to this patient's record. Test will be credited. CBC to be recollected due to possible falsely low Hgb on09/26/2024 13:53:40 FIELD CONTROL INSPECTOR [id number] NRBC abs See Comment 0.00 - 0.01 K/cumm [facility] Comment:CBC to be recollecte d due to possible falsely low Hgb on09/26/2024 13:53:40 FIELD CONTROL INSPECTOR [id number] Blood 09/26/2024 1:25 PM FIELD CONTROL INSPECTOR 09/26/2024 1:33 PM FIELD CONTROL INSPECTOR Arnulfo Jordan MD LAB BLOOD ORDERABLES Edited Result - Final [facility] [address] Department [place] [address] * (ABNORMAL) Comprehensive metabolic panel (09/26/2024 1:25 PM FIELD CONTROL INSPECTOR) Pathologist [facility] Sodium 142 135 - 145 mmol/L Potassium, pl 3.2(L) 3.3 - 4.9 mmol/L [facility] Chloride 112(H) 97 - 110 mmol/L [facility] CO2 21(L) 22 - 32 mmol/L [facility] Anion gap 9 2 - 15 mmol/L [facility] BUN 23 6 - 25 mg/dL [facility] Creatinine 1.18(H) 0.60 - 1.10 mg/dL [facility] Glucose 79 70 - 199 mg/dL [facility] Comment: Interpretive Data Fasting glucose >/= 126 [...] 2022. Calcium 7.4(L) 8.5 - 10.3 mg/dL [facility] Bilirubin, total 0.2 0.1 - 1.2 mg/dL [facility] Protein, pl 5.6(L) 6.5 - 8.5 g/dL [facility] Albumin 1.8(L) 3.5 - 5.0 g/dL [facility] Alk phos 135(H) 40 - 130 Units/L [facility] ALT 13 7 - 45 Units/L [facility] AST 32 10 - 45 Units/L [facility] Blood 09/26/2024 1:25 PM FIELD CONTROL INSPECTOR 09/26/2024 1:33 PM FIELD CONTROL INSPECTOR Arnulfo Jordan MD LAB BLOOD ORDERABLES Final Result Performing Organization Address [facility] Co de Phone Number [facility] [address] [place] [address] * POCT glucose (09/26/2024 10:10 AM FIELD CONTROL INSPECTOR) Glucose, POC 100 70 - 199 mg/dL Comment: For Glucose values <35 mg/dl when Hematocrit is >60 mg/dl,the test may not accurately detect significant hypoglycemia,and testing in the Laboratory should be considered if clinically indicated. Blood 09/26/2024 10:1 0 AM FIELD CONTROL INSPECTOR 09/26/2024 10:10 AM FIELD CONTROL INSPECTOR Result [facility] Arnulfo Jordan MD LAB POCT ORDERABLES - DEVIC E Final Result Performing Organization Address [facility] de Phone Number [facility] [address] Department [employer] [place] [address] * POCT glucose (09/26/2024 5:04 AM FIELD CONTROL INSPECTOR) Glucose, POC 94 70 - 199 mg/dL Comment: For Glucose values <35 mg/dl when Hematocrit is >60 mg/dl,the test may not accurately detect significant hypoglycemia,and testing in the Laboratory should be considered if clinically indicated. Blood 09/26/2024 5:04 AM FIELD CONTROL INSPECTOR 09/26/2024 5:04 AM FIELD CONTROL INSPECTOR Result [facility] us Arnulfo Jordan MD LAB POCT ORDERABLES - DEVIC E Final Result Performing Organization Address [facility] Co de Phone Number [facility] [address] Department [place] [address] * C. difficile testing Stool (09/26/2024 2:18 AM FIELD CONTROL INSPECTOR) GDH Result Negative Negative Toxin Result Negative Negative [facility] C. diff result Negative, free toxin Negative, free toxin [facility] C. diff interp Negative for toxigenic Clostridioides (Clostridium) difficile. Analysis was performed using a glutamate dehydrogenase antigen detection assay combined with a C. difficile toxin detection assay. [facility] Stool 09/26/2024 2:18 AM FIELD CONTROL INSPECTOR 09/26/2024 2:41 AM FIELD CONTROL INSPECTOR Result [facility] Arnulfo Jordan MD LAB MICROBIOLOGY - GENERAL ORDERABLES Final Result Performing Organization Address [facility] Co de Phone Number [facility] [address] [facility] [employer] [place] [address] * POCT glucose (09/26/2024 12:01 AM FIELD CONTROL INSPECTOR) [facility] Glucose, POC 108 70 - 199 mg/dL Comment: For Glucose values <35 mg/dl when Hematocrit is >60 mg/dl,the test may not accurately detect significant hypoglycemia,and testing in the Laboratory should be considered if clinically indicated. Blood 09/26/2024 12:0 1 AM FIELD CONTROL INSPECTOR 09/26/2024 12:01 AM FIELD CONTROL INSPECTOR Result [facility] Arnulfo Jordan MD LAB POCT ORDERABLES - DEVIC E Final Result Performing Organization Address [facility] Co de Phone Number [facility] [address] Department [employer] [place] [address] * POCT glucose (09/25/2024 8:35 PM FIELD CONTROL INSPECTOR) Pathologist [facility] Glucose, POC 92 70 - 199 mg/dL Comment: For Glucose values <35 mg/dl when Hematocrit is >60 mg/dl,the test may not accurately detect significant hypoglycemia,and testing in the Laboratory should be considered if clinically indicated. Blood 09/25/2024 8:35 PM FIELD CONTROL INSPECTOR 09/25/2024 8:35 PM FIELD CONTROL INSPECTOR Result [facility] Arnulfo Jordan MD LAB POCT ORDERABLES - DEVIC E Final Result Performing Organization Address [facility] Co de Phone Number [facility] [address] [facility] [employer] [place] [address] * POCT glucose (09/25/2024 4:36 PM FIELD CONTROL INSPECTOR) Pathologist [facility] Glucose, POC 97 70 - 199 mg/dL Comment: For Glucose values <35 mg/dl when Hematocrit is >60 mg/dl,the test may not accurately detect significant hypoglycemia,and testing in the Laboratory should be considered if clinically indicated. Blood 09/25/2024 4:36 PM FIELD CONTROL INSPECTOR 09/25/2024 4:36 PM FIELD CONTROL INSPECTOR Arnulfo Jordan MD LAB POCT ORDERABLES - DEVIC E Final Result Performing Organization Address [facility] Co de Phone Number [facility] [address] Department [employer] [place] [address] * POCT glucose (09/25/2024 11:55 AM FIELD CONTROL INSPECTOR) [facility] Glucose, POC 87 70 - 199 mg/dL Comment: For Glucose values <35 mg/dl when Hematocrit is >60 mg/dl,the test may not accurately detect significant hypoglycemia,and testing in the Laboratory should be considered if clinically indicated. Blood 09/25/2024 11:5 5 AM FIELD CONTROL INSPECTOR 09/25/2024 11:55 AM FIELD CONTROL INSPECTOR Arnulfo Jordan MD LAB POCT ORDERABLES - DEVIC E Final Result Performing Organization Address [facility] Co de Phone Number [facility] [address] [facility] [employer] [address] * (ABNORMAL) eGFR (09/25/2024 8:32 AM FIELD CONTROL INSPECTOR) Pathologist [facility] eGFR 53(L) >=60 mL/min/1. 73 m2 Comment: [...] last reviewed 2021. Blood 09/25/2024 8:32 AM FIELD CONTROL INSPECTOR 09/25/2024 8:46 AM FIELD CONTROL INSPECTOR Arnulfo Jordan MD LAB BLOOD ORDERABLES Final Result [facility] [address] Department [place] [address] * (ABNORMAL) Differential, auto (09/25/2024 8:32 AM FIELD CONTROL INSPECTOR) Neutrophil abs 7.2(H) 1.5 - 6.5 K/cumm Imm gran abs 0.1 0.0 - 0.1 K/cumm [facility] Lymphocyte abs 1.1 0.8 - 3.3 K/cumm [facility] Monocyte abs 0.7 0.2 - 0.8 K/cumm [facility] Eosinophil abs 0.2 0.0 - 0.5 K/cumm [facility] Basophil abs 0.1 0.0 - 0.1 K/cumm [facility] Neutrophil pct 78.5 % [facility] Comment: Interpretive Data Percent cell count reference ranges are not reported, since discordance with absolute values may lead to misinterpretation of CBC data. Current Interpretive Data was last revised on 2017. Imm gran pct 0.5 % [facility] Comment: Interpretive Data Percent cell count reference ranges are not reported, since discordance with absolute values may lead to misinterpretation of CBC data. Current Interpretive Data was last revised on 2017. Lymphocyte pct 11.6 % [facility] Comment: Interpretive Data Percent cell count reference ranges are not reported, since discordance with absolute values may lead to misinterpretation of CBC data. Current Interpretive Data was last revised on 2017. Monocyte pct 7.3 % [facility] Comment: Interpretive Data Percent cell count reference ranges are not reported, since discordance with absolute values may lead to misinterpretation of CBC data. Current Interpretive Data was last revised on 2017. Eosinophil pct 1.6 % [facility] Comment: Interpretive Data Percent cell count reference ranges are not reported, since discordance with absolute values may lead to misinterpretation of CBC data. Current Interpretive Data was last revised on 2017. Basophil pct 0.5 % [facility] Comment: Interpretive Data Percent cell count reference ranges are not reported, since discordance with absolute values may lead to misinterpretation of CBC data. Current Interpretive Data was last revised on 2017. Blood 09/25/2024 8:32 AM FIELD CONTROL INSPECTOR 09/25/2024 8:46 AM FIELD CONTROL INSPECTOR Arnulfo Jordan MD LAB BLOOD ORDERABLES Final Result Performing Organization Address [facility] Co de Phone Number [facility] [address] Department [place] [address] * POCT glucose (09/25/2024 8:32 AM FIELD CONTROL INSPECTOR) [facility] Signature Glucose, POC 89 70 - 199 mg/dL Comment: For Glucose values <35 mg/dl when Hematocrit is >60 mg/dl,the test may not accurately detect significant hypoglycemia,and testing in the Laboratory should be considered if clinically indicated. Blood 09/25/2024 8:32 AM FIELD CONTROL INSPECTOR 09/25/2024 8:32 AM FIELD CONTROL INSPECTOR us Arnulfo Jordan MD LAB POCT ORDERABLES - DEVIC E Final Result Performing Organization Address City/[facility]/ZIP Co de Phone Number [facility] [address] Department [place] [address] * (ABNORMAL) CBC with auto differential (09/25/2024 8:32 AM FIELD CONTROL INSPECTOR) [facility] WBC 9.2 3.8 - 9.9 K/cumm Hgb 7.2(L) 11.9 - 15.5 g/dL [facility] Hct 24.6(L) 35.6 - 45.5 % [facility] Plt 259 150 - 400 K/cumm [facility] MPV 11.7 9.1 - 12.3 fL [facility] RBC 2.49(L) 3.90 - 5.20 M/cumm [facility] MCV 98.8(H) 81.3 - 96.4 fL [facility] MCH 28.9 27.1 - 33.3 pg [facility] MCHC 29.3(L) 32.3 - 35.7 g/dL [facility] RDW CV 15.8(H) 11.1 - 14.9 % [facility] RDW SD 55.9(H) 35.7 - 48.1 fL [facility] NRBC abs 0.00 0.00 - 0.01 K/cumm [facility] Blood 09/25/2024 8:32 AM FIELD CONTROL INSPECTOR 09/25/2024 8:46 AM FIELD CONTROL INSPECTOR Arnulfo Jordan MD LAB BLOOD ORDERABLES Final Result [facility] [address] Department [place] [address] * (ABNORMAL) Comprehensive metabolic panel (09/25/2024 8:32 AM FIELD CONTROL INSPECTOR) [facility] Sodium 143 135 - 145 mmol/L Potassium, pl 3.2(L) 3.3 - 4.9 mmol/L [facility] Chloride 111(H) 97 - 110 mmol/L [facility] CO2 20(L) 22 - 32 mmol/L [facility] Anion gap 12 2 - 15 mmol/L [facility] BUN 26(H) 6 - 25 mg/dL [facility] Creatinine 1.24(H) 0.60 - 1.10 mg/dL [facility] Glucose 85 70 - 199 mg/dL [facility] Comment: Interpretive Data Fasting glucose >/= 126 [...] 2022. Calcium 7.7(L) 8.5 - 10.3 mg/dL [facility] Bilirubin, total 0.2 0.1 - 1.2 mg/dL [facility] Protein, pl 5.8(L) 6.5 - 8.5 g/dL [facility] Albumin 1.9(L) 3.5 - 5.0 g/dL [facility] Alk phos 137(H) 40 - 130 Units/L [facility] ALT 13 7 - 45 Units/L [facility] AST 28 10 - 45 Units/L [facility] Blood 09/25/2024 8:32 AM FIELD CONTROL INSPECTOR 09/25/2024 8:46 AM FIELD CONTROL INSPECTOR Arnulfo Jordan MD LAB BLOOD ORDERABLES Final Result [facility] [address] Department [place] [address] * POCT glucose (09/25/2024 4:49 AM FIELD CONTROL INSPECTOR) [facility] Glucose, POC 86 70 - 199 mg/dL Comment: For Glucose values <35 mg/dl when Hematocrit is >60 mg/dl,the test may not accurately detect significant hypoglycemia,and testing in the Laboratory should be considered if clinically indicated. Blood 09/25/2024 4:49 AM FIELD CONTROL INSPECTOR 09/25/2024 4:49 AM FIELD CONTROL INSPECTOR Arnulfo Jordan MD LAB POCT ORDERABLES - DEVIC E Final Result Performing Organization Address [facility] de Phone Number [facility] [address] [facility] [employer] [place] [address] * POCT glucose (09/25/2024 12:48 AM FIELD CONTROL INSPECTOR) Glucose, POC 83 70 - 199 mg/dL Comment: For Glucose values <35 mg/dl when Hematocrit is >60 mg/dl,the test may not accurately detect significant hypoglycemia,and testing in the Laboratory should be considered if clinically indicated. Blood 09/25/2024 12:4 8 AM FIELD CONTROL INSPECTOR 09/25/2024 12:48 AM FIELD CONTROL INSPECTOR Arnulfo Jordan MD LAB POCT ORDERABLES - DEVIC E Final Result Performing Organization Address [facility] de Phone Number [facility] [address] [facility] [employer] [place] [address] * POCT glucose (09/24/2024 8:56 PM FIELD CONTROL INSPECTOR) Glucose, POC 83 70 - 199 mg/dL Comment: For Glucose values <35 mg/dl when Hematocrit is >60 mg/dl,the test may not accurately detect significant hypoglycemia,and testing in the Laboratory should be considered if clinically indicated. Blood 09/24/2024 8:56 PM FIELD CONTROL INSPECTOR 09/24/2024 8:56 PM FIELD CONTROL INSPECTOR Arnulfo Jordan MD LAB POCT ORDERABLES - DEVIC E Final Result Performing Organization Address [facility] de Phone Number [facility] [address] [facility] [employer] [place] [address] * POCT glucose (09/24/2024 4:20 PM FIELD CONTROL INSPECTOR) Glucose, POC 83 70 - 199 mg/dL Comment: For Glucose values <35 mg/dl when Hematocrit is >60 mg/dl,the test may not accurately detect significant hypoglycemia,and testing in the Laboratory should be considered if clinically indicated. Blood 09/24/2024 4:20 PM FIELD CONTROL INSPECTOR 09/24/2024 4:20 PM FIELD CONTROL INSPECTOR Arnulfo Jordan MD LAB POCT ORDERABLES - DEVIC E Final Result Performing Organization Address [facility] de Phone Number [facility] [address] [facility] [employer] [place] [address] * POCT glucose (09/24/2024 12:13 PM FIELD CONTROL INSPECTOR) [facility] Signature Glucose, POC 91 70 - 199 mg/dL Comment: For Glucose values <35 mg/dl when Hematocrit is >60 mg/dl,the test may not accurately detect significant hypoglycemia,and testing in the Laboratory should be considered if clinically indicated. Blood 09/24/2024 12:1 3 PM FIELD CONTROL INSPECTOR 09/24/2024 12:13 PM FIELD CONTROL INSPECTOR Arnulfo Jordan MD LAB POCT ORDERABLES - DEVIC E Final Result Performing Organization Address [facility] de Phone Number [facility] [address] [facility] [employer] [place] [address] * XR Chest 1 View (09/24/2024 8:18 AM FIELD CONTROL INSPECTOR) Anatomical Region Laterality Modality Body, Chest N/A Computed Radiogr aphy 09/24/2024 8:36 AM FIELD CONTROL INSPECTOR Impressions 09/24/2024 8:36 AM FIELD CONTROL INSPECTOR Patchy airspace opacities greatest in the left lung base but also projecting over the left hilum and to a lesser extent the right hilum are not substantially changed and likely representing multifocal pneumonia and/or sequela of aspiration. Trace left pleural effusion. No right pleural effusion. No pneumothorax. Heart size is stable. Electronically signed by: Nithin Gonzalez MD, PHD Narrative 09/24/2024 8:36 AM FIELD CONTROL INSPECTOR EXAMINATION: XR CHEST 1 VIEW HISTORY: Shortness [...] lt * POCT glucose (09/24/2024 4:12 AM FIELD CONTROL INSPECTOR) Glucose, POC 129 70 - 199 mg/dL Comment: For Glucose values <35 mg/dl when Hematocrit is >60 mg/dl,the test may not accurately detect significant hypoglycemia,and testing in the Laboratory should be considered if clinically indicated. Blood 09/24/2024 4:12 AM FIELD CONTROL INSPECTOR 09/24/2024 4:12 AM FIELD CONTROL INSPECTOR Result [facility] Arnulfo Jordan MD LAB POCT ORDERABLES - DEVIC E Final Result [facility] [address] Department [place] [address] * POCT glucose (09/24/2024 2:44 AM FIELD CONTROL INSPECTOR) Glucose, POC 132 70 - 199 mg/dL Comment: For Glucose values <35 mg/dl when Hematocrit is >60 mg/dl,the test may not accurately detect significant hypoglycemia,and testing in the Laboratory should be considered if clinically indicated. Blood 09/24/2024 2:44 AM FIELD CONTROL INSPECTOR 09/24/2024 2:44 AM FIELD CONTROL INSPECTOR Result [facility] Arnulfo Jordan MD LAB POCT ORDERABLES - DEVIC E Final Result Performing Organization Address [facility] Co de Phone Number [facility] [address] [facility] [employer] [place], [place] [id number] * (ABNORMAL) POCT glucose (09/24/2024 1:06 AM FIELD CONTROL INSPECTOR) Glucose, POC 59(L) 70 - 199 mg/dL Comment: For Glucose values <35 mg/dl when Hematocrit is >60 mg/dl,the test may not accurately detect significant hypoglycemia,and testing in the Laboratory should be considered if clinically indicated. Blood 09/24/2024 1:06 AM FIELD CONTROL INSPECTOR 09/24/2024 1:06 AM FIELD CONTROL INSPECTOR Arnulfo Jordan MD LAB POCT ORDERABLES - DEVIC E Final Result Performing Organization Address [facility] Co de Phone Number [facility] [address] [facility] [employer] [place] [address] * (ABNORMAL) POCT glucose (09/24/2024 12:44 AM FIELD CONTROL INSPECTOR) Glucose, POC 65(L) 70 - 199 mg/dL Comment: For Glucose values <35 mg/dl when Hematocrit is >60 mg/dl,the test may not accurately detect significant hypoglycemia,and testing in the Laboratory should be considered if clinically indicated. Blood 09/24/2024 12:4 4 AM FIELD CONTROL INSPECTOR 09/24/2024 12:44 AM FIELD CONTROL INSPECTOR Arnulfo Jordan MD LAB POCT ORDERABLES - DEVIC E Final Result Performing Organization Address [facility] Co de Phone Number [facility] [address] [place], [place] [id number] * (ABNORMAL) POCT glucose (09/24/2024 12:22 AM FIELD CONTROL INSPECTOR) Glucose, POC 68(L) 70 - 199 mg/dL Comment: For Glucose values <35 mg/dl when Hematocrit is >60 mg/dl,the test may not accurately detect significant hypoglycemia,and testing in the Laboratory should be considered if clinically indicated. Blood 09/24/2024 12:2 2 AM FIELD CONTROL INSPECTOR 09/24/2024 12:22 AM FIELD CONTROL INSPECTOR Arnulfo Jordan MD LAB POCT ORDERABLES - DEVIC E Final Result Performing Organization Address [facility] Co de Phone Number [facility] [address] [facility] [employer] [place] [address] * POCT glucose (09/23/2024 9:34 PM FIELD CONTROL INSPECTOR) Glucose, POC 80 70 - 199 mg/dL Comment: For Glucose values <35 mg/dl when Hematocrit is >60 mg/dl,the test may not accurately detect significant hypoglycemia,and testing in the Laboratory should be considered if clinically indicated. Blood 09/23/2024 9:34 PM FIELD CONTROL INSPECTOR 09/23/2024 9:34 PM FIELD CONTROL INSPECTOR Guillermo Nair DO LAB POCT ORDERABLES - DE VICE Final Result Performing Organization Address [facility] de Phone Number [facility] [address] [facility] [employer] [place] [address] * POCT glucose (09/23/2024 4:10 PM FIELD CONTROL INSPECTOR) Glucose, POC 121 70 - 199 mg/dL Comment: For Glucose values <35 mg/dl when Hematocrit is >60 mg/dl,the test may not accurately detect significant hypoglycemia,and testing in the Laboratory should be considered if clinically indicated. Blood 09/23/2024 4:10 PM FIELD CONTROL INSPECTOR 09/23/2024 4:10 PM FIELD CONTROL INSPECTOR Guillermo Rhodesda Aziz DO LAB POCT ORDERABLES - DE VICE Final Result Performing Organization Address [facility] Co de Phone Number [facility] [address] [facility] [employer] [place] [address] * POCT glucose (09/23/2024 1:10 PM FIELD CONTROL INSPECTOR) Glucose, POC 115 70 - 199 mg/dL Comment: For Glucose values <35 mg/dl when Hematocrit is >60 mg/dl,the test may not accurately detect significant hypoglycemia,and testing in the Laboratory should be considered if clinically indicated. Blood 09/23/2024 1:10 PM FIELD CONTROL INSPECTOR 09/23/2024 1:10 PM FIELD CONTROL INSPECTOR Flo Villagran MD LAB POCT ORDERABLES - DEVICE Final Result [facility] [address] Department [employer] [place] [address] * POCT glucose (09/23/2024 12:18 PM FIELD CONTROL INSPECTOR) Glucose, POC 83 70 - 199 mg/dL Comment: For Glucose values <35 mg/dl when Hematocrit is >60 mg/dl,the test may not accurately detect significant hypoglycemia,and testing in the Laboratory should be considered if clinically indicated. Blood 09/23/2024 12:1 8 PM FIELD CONTROL INSPECTOR 09/23/2024 12:18 PM FIELD CONTROL INSPECTOR Result [facility] Flo Villagran MD LAB POCT ORDERABLES - DEVICE Final Result [facility] [address] Department of [employer] [place] [address] * (ABNORMAL) POCT glucose (09/23/2024 11:55 AM FIELD CONTROL INSPECTOR) Glucose, POC 69(L) 70 - 199 mg/dL Comment: For Glucose values <35 mg/dl when Hematocrit is >60 mg/dl,the test may not accurately detect significant hypoglycemia,and testing in the Laboratory should be considered if clinically indicated. Blood 09/23/2024 11:5 5 AM FIELD CONTROL INSPECTOR 09/23/2024 11:55 AM FIELD CONTROL INSPECTOR Flo Villagran MD LAB POCT ORDERABLES - DEVICE Final Result Performing Organization Address [facility] Co de Phone Number [facility] [address] [facility] [employer] [place], [place] [id number] * (ABNORMAL) POCT glucose (09/23/2024 11:54 AM FIELD CONTROL INSPECTOR) Glucose, POC 63(L) 70 - 199 mg/dL Comment: For Glucose values <35 mg/dl when Hematocrit is >60 mg/dl,the test may not accurately detect significant hypoglycemia,and testing in the Laboratory should be considered if clinically indicated. Blood 09/23/2024 11:5 4 AM FIELD CONTROL INSPECTOR 09/23/2024 11:54 AM FIELD CONTROL INSPECTOR Flo Villagran MD LAB POCT ORDERABLES - DEVICE Final Result Performing Organization Address [facility] de Phone Number [facility] [address] [facility] [employer] [place] [address] * POCT glucose (09/23/2024 7:47 AM FIELD CONTROL INSPECTOR) Glucose, POC 71 70 - 199 mg/dL Comment: For Glucose values <35 mg/dl when Hematocrit is >60 mg/dl,the test may not accurately detect significant hypoglycemia,and testing in the Laboratory should be considered if clinically indicated. Blood 09/23/2024 7:47 AM FIELD CONTROL INSPECTOR 09/23/2024 7:47 AM FIELD CONTROL INSPECTOR Flo Villagran MD LAB POCT ORDERABLES - DEVICE Final Result Performing Organization Address [facility] Co de Phone Number [facility] [address] [facility] [employer] [place], [place] [id number] * POCT glucose (09/23/2024 3:27 AM FIELD CONTROL INSPECTOR) Glucose, POC 92 70 - 199 mg/dL Comment: For Glucose values <35 mg/dl when Hematocrit is >60 mg/dl,the test may not accurately detect significant hypoglycemia,and testing in the Laboratory should be considered if clinically indicated. Blood 09/23/2024 3:27 AM FIELD CONTROL INSPECTOR 09/23/2024 3:27 AM FIELD CONTROL INSPECTOR Flo Villagran MD LAB POCT ORDERABLES - DEVICE Final Result Performing Organization Address [facility] Co de Phone Number [facility] [address] [facility] [employer] [place] [address] * POCT glucose (09/23/2024 1:13 AM FIELD CONTROL INSPECTOR) Glucose, POC 113 70 - 199 mg/dL Comment: For Glucose values <35 mg/dl when Hematocrit is >60 mg/dl,the test may not accurately detect significant hypoglycemia,and testing in the Laboratory should be considered if clinically indicated. Blood 09/23/2024 1:13 AM FIELD CONTROL INSPECTOR 09/23/2024 1:13 AM FIELD CONTROL INSPECTOR Flo Villagran MD LAB POCT ORDERABLES - DEVICE Final Result Performing Organization Address [facility] de Phone Number [facility] [address] [facility] [employer] [place] [address] * POCT glucose (09/23/2024 12:17 AM FIELD CONTROL INSPECTOR) Glucose, POC 195 70 - 199 mg/dL Comment: For Glucose values <35 mg/dl when Hematocrit is >60 mg/dl,the test may not accurately detect significant hypoglycemia,and testing in the Laboratory should be considered if clinically indicated. Blood 09/23/2024 12:1 7 AM FIELD CONTROL INSPECTOR 09/23/2024 12:17 AM FIELD CONTROL INSPECTOR Flo Villagran MD LAB POCT ORDERABLES - DEVICE Final Result Performing Organization Address [facility] Co de Phone Number [facility] [address] [facility] [employer] [place] [address] * (ABNORMAL) POCT glucose (09/22/2024 11:54 PM FIELD CONTROL INSPECTOR) Glucose, POC 63(L) 70 - 199 mg/dL Comment: For Glucose values <35 mg/dl when Hematocrit is >60 mg/dl,the test may not accurately detect significant hypoglycemia,and testing in the Laboratory should be considered if clinically indicated. Blood 09/22/2024 11:5 4 PM FIELD CONTROL INSPECTOR 09/22/2024 11:54 PM FIELD CONTROL INSPECTOR Flo Villagran MD LAB POCT ORDERABLES - DEVICE Final Result Performing Organization Address [facility] de Phone Number [facility] [address] [place] [address] * (ABNORMAL) Blood gas, arterial (09/22/2024 8:33 PM FIELD CONTROL INSPECTOR) [facility] pH, Art 7.44 7.35 - 7.45 PCO2, Arterial 37 35 - 45 mmHg [facility] PO2, Arterial 81(L) 83 - 108 mmHg [facility] HCO3 Art (Calculated) 25 20 - 30 mmol/L [facility] BE, art 1 mmol/L [facility] Comment: Interpretive Data No Reference Range Established Current Interpretive Data was last revised on 2017 O2 Sat Art (Calculated) 96 94 - 98 % [facility] Blood 09/22/2024 8:33 PM FIELD CONTROL INSPECTOR 09/22/2024 8:36 PM FIELD CONTROL INSPECTOR Chad Veras MD LAB BLOOD ORDERABLES Final R esult Performing Organization Address [facility] Co de Phone Number [facility] [address] Department [employer] [place] [address] * POCT glucose (09/22/2024 7:46 PM FIELD CONTROL INSPECTOR) Glucose, POC 95 70 - 199 mg/dL Comment: For Glucose values <35 mg/dl when Hematocrit is >60 mg/dl,the test may not accurately detect significant hypoglycemia,and testing in the Laboratory should be considered if clinically indicated. Blood 09/22/2024 7:46 PM FIELD CONTROL INSPECTOR 09/22/2024 7:46 PM FIELD CONTROL INSPECTOR Flo Villagran MD LAB POCT ORDERABLES - DEVICE Final Result Performing Organization Address [facility] de Phone Number [facility] [address] [facility] [employer] [place] [address] * POCT glucose (09/22/2024 4:04 PM FIELD CONTROL INSPECTOR) Glucose, POC 166 70 - 199 mg/dL Comment: For Glucose values <35 mg/dl when Hematocrit is >60 mg/dl,the test may not accurately detect significant hypoglycemia,and testing in the Laboratory should be considered if clinically indicated. Blood 09/22/2024 4:04 PM FIELD CONTROL INSPECTOR 09/22/2024 4:04 PM FIELD CONTROL INSPECTOR Flo Villagran MD LAB POCT ORDERABLES - DEVICE Final Result Performing Organization Address [facility] de Phone Number [facility] [address] [facility] [employer] [place] [address] * POCT glucose (09/22/2024 11:51 AM FIELD CONTROL INSPECTOR) Glucose, POC 187 70 - 199 mg/dL Comment: For Glucose values <35 mg/dl when Hematocrit is >60 mg/dl,the test may not accurately detect significant hypoglycemia,and testing in the Laboratory should be considered if clinically indicated. Blood 09/22/2024 11:5 1 AM FIELD CONTROL INSPECTOR 09/22/2024 11:51 AM FIELD CONTROL INSPECTOR Flo Villagran MD LAB POCT ORDERABLES - DEVICE Final Result Performing Organization Address [facility] de Phone Number [facility] [address] [facility] [employer] [place] [address] * (ABNORMAL) POCT glucose (09/22/2024 8:42 AM FIELD CONTROL INSPECTOR) Glucose, POC 210(H) 70 - 199 mg/dL Comment: For Glucose values <35 mg/dl when Hematocrit is >60 mg/dl,the test may not accurately detect significant hypoglycemia,and testing in the Laboratory should be considered if clinically indicated. Blood 09/22/2024 8:42 AM FIELD CONTROL INSPECTOR 09/22/2024 8:42 AM FIELD CONTROL INSPECTOR Flo Villagran MD LAB POCT ORDERABLES - DEVICE Final Result Performing Organization Address [facility] Co de Phone Number [facility] [address] Department [place] [address] * POCT glucose (09/22/2024 4:05 AM FIELD CONTROL INSPECTOR) [facility] Signature Glucose, POC 199 70 - 199 mg/dL Comment: For Glucose values <35 mg/dl when Hematocrit is >60 mg/dl,the test may not accurately detect significant hypoglycemia,and testing in the Laboratory should be considered if clinically indicated. Blood 09/22/2024 4:05 AM FIELD CONTROL INSPECTOR 09/22/2024 4:05 AM FIELD CONTROL INSPECTOR Flo Villagran MD LAB POCT ORDERABLES - DEVICE Final Result Performing Organization Address [facility] de Phone Number [facility] [address] Department [place] [address] * XR Chest 1 View (09/22/2024 3:59 AM FIELD CONTROL INSPECTOR) Anatomical Region Laterality Modality Body, Chest N/A Computed Radiogr aphy 09/22/2024 9:18 AM FIELD CONTROL INSPECTOR Impressions 09/22/2024 9:18 AM FIELD CONTROL INSPECTOR The current study is compared with the [...] Blair Lopez M.D. Narrative 09/22/2024 9:18 AM FIELD CONTROL INSPECTOR EXAMINATION: XR CHEST 1 VIEW Procedure Note [...] lt * (ABNORMAL) eGFR (09/22/2024 2:24 AM FIELD CONTROL INSPECTOR) eGFR 53(L) >=60 mL/min/1. 73 m2 Comment: [...] last reviewed 2021. Blood 09/22/2024 2:24 AM FIELD CONTROL INSPECTOR 09/22/2024 2:55 AM FIELD CONTROL INSPECTOR us Flo Villagran MD LAB BLOOD ORDERABLES Final R esult Performing Organization Address [facility] Co de Phone Number [facility] [address] [employer] [place], [place] [id number] * (ABNORMAL) CBC without differential (09/22/2024 2:24 AM FIELD CONTROL INSPECTOR) WBC 15.1(H) 3.8 - 9.9 K/cumm Hgb 7.5(L) 11.9 - 15.5 g/dL [facility] Hct 23.4(L) 35.6 - 45.5 % [facility] Plt 248 150 - 400 K/cumm [facility] MPV 12.5(H) 9.1 - 12.3 fL [facility] RBC 2.55(L) 3.90 - 5.20 M/cumm [facility] MCV 91.8 81.3 - 96.4 fL [facility] MCH 29.4 27.1 - 33.3 pg [facility] MCHC 32.1(L) 32.3 - 35.7 g/dL [facility] RDW CV 15.2(H) 11.1 - 14.9 % [facility] RDW SD 50.1(H) 35.7 - 48.1 fL [facility] NRBC abs 0.00 0.00 - 0.01 K/cumm [facility] Blood 09/22/2024 2:24 AM FIELD CONTROL INSPECTOR 09/22/2024 2:40 AM FIELD CONTROL INSPECTOR us Flo Villagran MD LAB BLOOD ORDERABLES Final R esult Performing Organization Address [facility]/ZIP Co de Phone Number [facility] [address] [employer] [place], [place] [id number] * Magnesium (09/22/2024 2:24 AM FIELD CONTROL INSPECTOR) Magnesium 2.0 1.4 - 2.5 mg/dL Blood 09/22/2024 2:24 AM FIELD CONTROL INSPECTOR 09/22/2024 2:55 AM FIELD CONTROL INSPECTOR Flo Villagran MD LAB BLOOD ORDERABLES Final R esult [facility] [address] Department [place] [address] * (ABNORMAL) Renal function panel (09/22/2024 2:24 AM FIELD CONTROL INSPECTOR) Sodium 140 135 - 145 mmol/L Potassium, pl 3.4 3.3 - 4.9 mmol/L [facility] Chloride 108 97 - 110 mmol/L [facility] CO2 20(L) 22 - 32 mmol/L [facility] Anion gap 12 2 - 15 mmol/L [facility] BUN 31(H) 6 - 25 mg/dL [facility] Creatinine 1.25(H) 0.60 - 1.10 mg/dL [facility] Glucose 189 70 - 199 mg/dL [facility] Comment: Interpretive Data Fasting glucose >/= 126 [...] 2022. Calcium 7.5(L) 8.5 - 10.3 mg/dL [facility] Phosphorus, pl 3.6 2.3 - 4.5 mg/dL [facility] Albumin 2.1(L) 3.5 - 5.0 g/dL [facility] Blood 09/22/2024 2:24 AM FIELD CONTROL INSPECTOR 09/22/2024 2:55 AM FIELD CONTROL INSPECTOR Flo Villagran MD LAB BLOOD ORDERABLES Final R esult Performing Organization Address [facility] de Phone Number [facility] [address] [facility] [employer] [place], [place] [phone] * POCT glucose (09/21/2024 11:58 PM FIELD CONTROL INSPECTOR) Glucose, POC 177 70 - 199 mg/dL Comment: For Glucose values <35 mg/dl when Hematocrit is >60 mg/dl,the test may not accurately detect significant hypoglycemia,and testing in the Laboratory should be considered if clinically indicated. Blood 09/21/2024 11:5 8 PM FIELD CONTROL INSPECTOR 09/21/2024 11:58 PM FIELD CONTROL INSPECTOR Flo Villagran MD LAB POCT ORDERABLES - DEVICE Final Result Performing Organization Address [facility] de Phone Number [facility] [address] [facility] [employer] [place] [address] * POCT glucose (09/21/2024 7:01 PM FIELD CONTROL INSPECTOR) Glucose, POC 134 70 - 199 mg/dL Comment: For Glucose values <35 mg/dl when Hematocrit is >60 mg/dl,the test may not accurately detect significant hypoglycemia,and testing in the Laboratory should be considered if clinically indicated. Blood 09/21/2024 7:01 PM FIELD CONTROL INSPECTOR 09/21/2024 7:01 PM FIELD CONTROL INSPECTOR Flo Villagran MD LAB POCT ORDERABLES - DEVICE Final Result Performing Organization Address [facility] de Phone Number [facility] [address] [facility] [employer] [place] [address] * POCT glucose (09/21/2024 3:10 PM FIELD CONTROL INSPECTOR) Glucose, POC 140 70 - 199 mg/dL Comment: For Glucose values <35 mg/dl when Hematocrit is >60 mg/dl,the test may not accurately detect significant hypoglycemia,and testing in the Laboratory should be considered if clinically indicated. Blood 09/21/2024 3:10 PM FIELD CONTROL INSPECTOR 09/21/2024 3:10 PM FIELD CONTROL INSPECTOR Flo Villagran MD LAB POCT ORDERABLES - DEVICE Final Result Performing Organization Address [facility] Co de Phone Number [facility] [address] [facility] [employer] [place], [place] [phone] * Potassium (09/21/2024 2:07 PM FIELD CONTROL INSPECTOR) Potassium, pl 3.9 3.3 - 4.9 mmol/L Blood 09/21/2024 2:07 PM FIELD CONTROL INSPECTOR 09/21/2024 2:07 PM FIELD CONTROL INSPECTOR Flo Villagran MD LAB BLOOD ORDERABLES Final R esult Performing Organization Address [facility] de Phone Number [facility] [address] [facility] [employer] [place], [place] [phone] * (ABNORMAL) POCT glucose (09/21/2024 11:30 AM FIELD CONTROL INSPECTOR) Glucose, POC 200(H) 70 - 199 mg/dL Comment: For Glucose values <35 mg/dl when Hematocrit is >60 mg/dl,the test may not accurately detect significant hypoglycemia,and testing in the Laboratory should be considered if clinically indicated. Blood 09/21/2024 11:3 0 AM FIELD CONTROL INSPECTOR 09/21/2024 11:30 AM FIELD CONTROL INSPECTOR Flo Villagran MD LAB POCT ORDERABLES - DEVICE Final Result Performing Organization Address [facility] Co de Phone Number [facility] [address] [facility] [employer] [place], [place] [phone] * (ABNORMAL) POCT glucose (09/21/2024 7:19 AM FIELD CONTROL INSPECTOR) Glucose, POC 230(H) 70 - 199 mg/dL Comment: For Glucose values <35 mg/dl when Hematocrit is >60 mg/dl,the test may not accurately detect significant hypoglycemia,and testing in the Laboratory should be considered if clinically indicated. Blood 09/21/2024 7:19 AM FIELD CONTROL INSPECTOR 09/21/2024 7:19 AM FIELD CONTROL INSPECTOR Flo Villagran MD LAB POCT ORDERABLES - DEVICE Final Result [facility] [address] Department [place] [address] * XR Chest 1 View (09/21/2024 4:44 AM FIELD CONTROL INSPECTOR) Anatomical Region Laterality Modality Body, Chest N/A Computed Radiogr aphy 09/21/2024 7:37 AM FIELD CONTROL INSPECTOR Impressions 09/21/2024 7:37 AM FIELD CONTROL INSPECTOR Comparison is made to 2024. Endotracheal tube 2.7 cm above the jessneia. Nasogastric tube tip located with diaphragm, not included [id number]. There is slightly improved aeration within the left retrocardiac location likely representing improving aspiration/pneumonia. There is mild right basilar atelectasis. No pleural effusion or pneumothorax. Stable heart size. Electronically signed by: Ruiz Coles M.D. Narrative 09/21/2024 7:37 AM FIELD CONTROL INSPECTOR Examination: Chest 1 view Procedure Note Ruiz Coles MD - 09/21/2024 Examination: Chest 1 view IMPRESSION: Comparison is made to 2024. Endotracheal tube 2.7 cm above the jessenia. Nasogastric tube tip located with diaphragm, not included [id number]. There is slightly improved aeration within the left retrocardiac location likely representing improving aspiration/pneumonia. There is mild right basilar atelectasis. No pleural effusion or pneumothorax. Stable heart size. Electronically signed by: Ruiz Coles M.D. Flo Villagran MD IMG XR PROCEDURES Final Resu lt * (ABNORMAL) POCT glucose (09/21/2024 3:47 AM FIELD CONTROL INSPECTOR) [facility] Signature Glucose, POC 235(H) 70 - 199 mg/dL Comment: For Glucose values <35 mg/dl when Hematocrit is >60 mg/dl,the test may not accurately detect significant hypoglycemia,and testing in the Laboratory should be considered if clinically indicated. Blood 09/21/2024 3:47 AM FIELD CONTROL INSPECTOR 09/21/2024 3:47 AM FIELD CONTROL INSPECTOR Flo Villagran MD LAB POCT ORDERABLES - DEVICE Final Result Performing Organization Address [facility] Co de Phone Number [facility] [address] [place] [address] * (ABNORMAL) eGFR (09/21/2024 1:48 AM FIELD CONTROL INSPECTOR) [facility] eGFR 50(L) >=60 mL/min/1. 73 m2 Comment: [...] last reviewed 2021. Blood 09/21/2024 1:48 AM FIELD CONTROL INSPECTOR 09/21/2024 2:06 AM FIELD CONTROL INSPECTOR Flo Villagran MD LAB BLOOD ORDERABLES Final R esult Performing Organization Address City/[facility]/ZIP Co de Phone Number [facility] [address] Department [employer] [place] [address] * (ABNORMAL) CBC without differential (09/21/2024 1:48 AM FIELD CONTROL INSPECTOR) [facility] WBC 13.1(H) 3.8 - 9.9 K/cumm Hgb 7.6(L) 11.9 - 15.5 g/dL [facility] Hct 24.6(L) 35.6 - 45.5 % [facility] Plt 229 150 - 400 K/cumm [facility] MPV 12.5(H) 9.1 - 12.3 fL [facility] RBC 2.65(L) 3.90 - 5.20 M/cumm [facility] MCV 92.8 81.3 - 96.4 fL [facility] MCH 28.7 27.1 - 33.3 pg [facility] MCHC 30.9(L) 32.3 - 35.7 g/dL [facility] RDW CV 15.5(H) 11.1 - 14.9 % [facility] RDW SD 51.8(H) 35.7 - 48.1 fL [facility] NRBC abs 0.00 0.00 - 0.01 K/cumm [facility] Blood 09/21/2024 1:48 AM FIELD CONTROL INSPECTOR 09/21/2024 2:06 AM FIELD CONTROL INSPECTOR Flo Villagran MD LAB BLOOD ORDERABLES Final R esult Performing Organization Address City/[facility] Co de Phone Number [facility] [address] [facility] [employer] [place] [address] * Phosphorus (09/21/2024 1:48 AM FIELD CONTROL INSPECTOR) [facility] Phosphorus, pl 3.2 2.3 - 4.5 mg/dL Blood 09/21/2024 1:48 AM FIELD CONTROL INSPECTOR 09/21/2024 2:06 AM FIELD CONTROL INSPECTOR Flo Villagran MD LAB BLOOD ORDERABLES Final R esult Performing Organization Address City/[facility] Co de Phone Number [facility] [address] Department of [employer] [place] [address] * Magnesium (09/21/2024 1:48 AM FIELD CONTROL INSPECTOR) [facility] Magnesium 2.0 1.4 - 2.5 mg/dL Blood 09/21/2024 1:48 AM FIELD CONTROL INSPECTOR 09/21/2024 2:06 AM FIELD CONTROL INSPECTOR Flo Villagran MD LAB BLOOD ORDERABLES Final R esult Performing Organization Address City/[facility]/ZIP Co de Phone Number [facility] [address] [facility] [employer] [place] [address] * Bilirubin, direct (09/21/2024 1:48 AM FIELD CONTROL INSPECTOR) [facility] Bilirubin, direct <0.2 0.1 - 0.3 mg/dL Blood 09/21/2024 1:48 AM FIELD CONTROL INSPECTOR 09/21/2024 2:06 AM FIELD CONTROL INSPECTOR Flo Villagran MD LAB BLOOD ORDERABLES Final R esult Performing Organization Address City/[facility] Co de Phone Number [facility] SYSTEM [address] [facility] [employer] [place] [address] * (ABNORMAL) Comprehensive metabolic panel (09/21/2024 1:48 AM FIELD CONTROL INSPECTOR) [facility] Sodium 144 135 - 145 mmol/L Potassium, pl 2.9(L) 3.3 - 4.9 mmol/L [facility] Chloride 112(H) 97 - 110 mmol/L [facility] CO2 19(L) 22 - 32 mmol/L [facility] Anion gap 13 2 - 15 mmol/L [facility] BUN 32(H) 6 - 25 mg/dL [facility] Creatinine 1.31(H) 0.60 - 1.10 mg/dL [facility] Glucose 259(H) 70 - 199 mg/dL [facility] Comment: Interpretive Data Fasting glucose >/= 126 [...] 2022. Calcium 7.4(L) 8.5 - 10.3 mg/dL [facility] Bilirubin, total 0.2 0.1 - 1.2 mg/dL [facility] Protein, pl 5.6(L) 6.5 - 8.5 g/dL [facility] Albumin 2.0(L) 3.5 - 5.0 g/dL [facility] Alk phos 135(H) 40 - 130 Units/L [facility] ALT 16 7 - 45 Units/L [facility] AST 23 10 - 45 Units/L [facility] Blood 09/21/2024 1:48 AM FIELD CONTROL INSPECTOR 09/21/2024 2:06 AM FIELD CONTROL INSPECTOR Flo Villagran MD LAB BLOOD ORDERABLES Final R esult Performing Organization Address City/[facility]/ZIP Co de Phone Number [facility] [address] [place] [address] * (ABNORMAL) POCT glucose (09/20/2024 11:54 PM FIELD CONTROL INSPECTOR) [facility] Glucose, POC 264(H) 70 - 199 mg/dL Comment: For Glucose values <35 mg/dl when Hematocrit is >60 mg/dl,the test may not accurately detect significant hypoglycemia,and testing in the Laboratory should be considered if clinically indicated. Blood 09/20/2024 11:5 4 PM FIELD CONTROL INSPECTOR 09/20/2024 11:54 PM FIELD CONTROL INSPECTOR Flo Villagran MD LAB POCT ORDERABLES - DEVICE Final Result Performing Organization Address City/[facility]/ZIP Co de Phone Number [facility] [address] [place] [address] [phone] * (ABNORMAL) POCT glucose (09/20/2024 7:03 PM FIELD CONTROL INSPECTOR) Glucose, POC 253(H) 70 - 199 mg/dL Comment: For Glucose values <35 mg/dl when Hematocrit is >60 mg/dl,the test may not accurately detect significant hypoglycemia,and testing in the Laboratory should be considered if clinically indicated. Blood 09/20/2024 7:03 PM FIELD CONTROL INSPECTOR 09/20/2024 7:03 PM FIELD CONTROL INSPECTOR Flo Villagran MD LAB POCT ORDERABLES - DEVICE Final Result Performing Organization Address [facility] Co de Phone Number [facility] [address] [facility] [employer] [place] [address] * POCT glucose (09/20/2024 3:28 PM FIELD CONTROL INSPECTOR) Glucose, POC 179 70 - 199 mg/dL Comment: For Glucose values <35 mg/dl when Hematocrit is >60 mg/dl,the test may not accurately detect significant hypoglycemia,and testing in the Laboratory should be considered if clinically indicated. Blood 09/20/2024 3:28 PM FIELD CONTROL INSPECTOR 09/20/2024 3:28 PM FIELD CONTROL INSPECTOR Flo Villagran MD LAB POCT ORDERABLES - DEVICE Final Result Performing Organization Address [facility] Co de Phone Number [facility] [address] Department [employer] [place] [address] * (ABNORMAL) POCT glucose (09/20/2024 11:48 AM FIELD CONTROL INSPECTOR) Glucose, POC 213(H) 70 - 199 mg/dL Comment: For Glucose values <35 mg/dl when Hematocrit is >60 mg/dl,the test may not accurately detect significant hypoglycemia,and testing in the Laboratory should be considered if clinically indicated. Blood 09/20/2024 11:4 8 AM FIELD CONTROL INSPECTOR 09/20/2024 11:48 AM FIELD CONTROL INSPECTOR Flo Villagran MD LAB POCT ORDERABLES - DEVICE Final Result Performing Organization Address City/[facility]/ZIP Co de Phone Number [facility] [address] Department [place] [address] * (ABNORMAL) Blood gas, arterial (09/20/2024 10:54 AM FIELD CONTROL INSPECTOR) pH, Art 7.43 7.35 - 7.45 PCO2, Arterial 30(L) 35 - 45 mmHg [facility] PO2, Arterial 82(L) 83 - 108 mmHg [facility] HCO3 Art (Calculated) 20 20 - 30 mmol/L [facility] BE, art -3 mmol/L [facility] Comment: Interpretive Data No Reference Range Established Current Interpretive Data was last revised on 2017 O2 Sat Art (Calculated) 96 94 - 98 % [facility] Blood 09/20/2024 10:5 4 AM FIELD CONTROL INSPECTOR 09/20/2024 10:57 AM FIELD CONTROL INSPECTOR Flo Villagran MD LAB BLOOD ORDERABLES Final R esult Performing Organization Address City/[facility]/ZIP Co de Phone Number [facility] [address] Department [place] [address] * XR Chest 1 View (09/20/2024 9:17 AM FIELD CONTROL INSPECTOR) Anatomical Region Laterality Modality Body, Chest N/A Computed Radiogr aphy 09/20/2024 10:0 9 AM FIELD CONTROL INSPECTOR Impressions 09/20/2024 10:09 AM FIELD CONTROL INSPECTOR Comparison to 09/17/2024. An endotracheal tube terminates approximately 2.5 cm above the jessenia. Endogastric tube coils in the peripyloric region. Bilateral airspace opacities, left greater than right, with mid to lower lung zone predominance has slightly improved. No pleural effusion or pneumothorax. Unchanged heart size. The Electronically signed by: Gibran Astudillo M.D. Narrative 09/20/2024 10:09 AM FIELD CONTROL INSPECTOR EXAMINATION: 1 view chest radiograph Procedure Note [...] Electronically signed by: Gibran Astudillo M.D. Flo Villagrna MD IMG XR PROCEDURES Final Resu lt * POCT glucose (09/20/2024 7:20 AM FIELD CONTROL INSPECTOR) Glucose, POC 159 70 - 199 mg/dL Comment: For Glucose values <35 mg/dl when Hematocrit is >60 mg/dl,the test may not accurately detect significant hypoglycemia,and testing in the Laboratory should be considered if clinically indicated. Blood 09/20/2024 7:20 AM FIELD CONTROL INSPECTOR 09/20/2024 7:20 AM FIELD CONTROL INSPECTOR Flo Villagran MD LAB POCT ORDERABLES - DEVICE Final Result Performing Organization Address [facility] Co de Phone Number [facility] [address] Department [place] [address] * POCT glucose (09/20/2024 3:37 AM FIELD CONTROL INSPECTOR) Glucose, POC 195 70 - 199 mg/dL Comment: For Glucose values <35 mg/dl when Hematocrit is >60 mg/dl,the test may not accurately detect significant hypoglycemia,and testing in the Laboratory should be considered if clinically indicated. Blood 09/20/2024 3:37 AM FIELD CONTROL INSPECTOR 09/20/2024 3:37 AM FIELD CONTROL INSPECTOR Flo Villagran MD LAB POCT ORDERABLES - DEVICE Final Result Performing Organization Address [facility] Co de Phone Number [facility] [address] Department [place] [address] * (ABNORMAL) eGFR (09/20/2024 12:27 AM FIELD CONTROL INSPECTOR) Pathologist [facility] eGFR 43(L) >=60 mL/min/1. 73 m2 Comment: [...] reviewed 2021. Blood 09/20/2024 12:2 7 AM FIELD CONTROL INSPECTOR 09/20/2024 12:27 AM FIELD CONTROL INSPECTOR us Elida Vigil DO LAB BLOOD ORDERABLES F inal Result [facility] [address] Department [place] [address] * (ABNORMAL) Differential, auto (09/20/2024 12:27 AM FIELD CONTROL INSPECTOR) Pathologist [facility] Neutrophil abs 8.9(H) 1.5 - 6.5 K/cumm Imm gran abs 0.5(H) 0.0 - 0.1 K/cumm [facility] Lymphocyte abs 0.9 0.8 - 3.3 K/cumm [facility] Monocyte abs 0.7 0.2 - 0.8 K/cumm [facility] Eosinophil abs 0.2 0.0 - 0.5 K/cumm [facility] Basophil abs 0.0 0.0 - 0.1 K/cumm [facility] Neutrophil pct 79.8 % [facility] Comment: Interpretive Data Percent cell count reference ranges are not reported, since discordance with absolute values may lead to misinterpretation of CBC data. Current Interpretive Data was last revised on 2017. Imm gran pct 4.5 % [facility] Comment: Interpretive Data Percent cell count reference ranges are not reported, since discordance with absolute values may lead to misinterpretation of CBC data. Current Interpretive Data was last revised on 2017. Lymphocyte pct 7.8 % [facility] Comment: Interpretive Data Percent cell count reference ranges are not reported, since discordance with absolute values may lead to misinterpretation of CBC data. Current Interpretive Data was last revised on 2017. Monocyte pct 6.3 % [facility] Comment: Interpretive Data Percent cell count reference ranges are not reported, since discordance with absolute values may lead to misinterpretation of CBC data. Current Interpretive Data was last revised on 2017. Eosinophil pct 1.4 % [facility] Comment: Interpretive Data Percent cell count reference ranges are not reported, since discordance with absolute values may lead to misinterpretation of CBC data. Current Interpretive Data was last revised on 2017. Basophil pct 0.2 % [facility] Comment: Interpretive Data Percent cell count reference ranges are not reported, since discordance with absolute values may lead to misinterpretation of CBC data. Current Interpretive Data was last revised on 2017. Blood 09/20/2024 12:2 7 AM FIELD CONTROL INSPECTOR 09/20/2024 12:27 AM FIELD CONTROL INSPECTOR us Elida Vigil DO LAB BLOOD ORDERABLES F inal Result [facility] [address] Department of Laboratories [place], [place] [id number] * (ABNORMAL) CBC with auto differential (09/20/2024 12:27 AM FIELD CONTROL INSPECTOR) WBC 11.2(H) 3.8 - 9.9 K/cumm Hgb 7.6(L) 11.9 - 15.5 g/dL [facility] Hct 24.5(L) 35.6 - 45.5 % [facility] Plt 190 150 - 400 K/cumm [facility] MPV 13.0(H) 9.1 - 12.3 fL [facility] RBC 2.67(L) 3.90 - 5.20 M/cumm [facility] MCV 91.8 81.3 - 96.4 fL [facility] MCH 28.5 27.1 - 33.3 pg [facility] MCHC 31.0(L) 32.3 - 35.7 g/dL [facility] RDW CV 15.2(H) 11.1 - 14.9 % [facility] RDW SD 50.5(H) 35.7 - 48.1 fL [facility] NRBC abs 0.00 0.00 - 0.01 K/cumm [facility] Blood 09/20/2024 12:2 7 AM FIELD CONTROL INSPECTOR 09/20/2024 12:27 AM FIELD CONTROL INSPECTOR us Elida Vigil DO LAB BLOOD ORDERABLES F inal Result [facility] [address] Department [place] [address] * (ABNORMAL) Comprehensive metabolic panel (09/20/2024 12:27 AM FIELD CONTROL INSPECTOR) Sodium 147(H) 135 - 145 mmol/L Potassium, pl 3.3 3.3 - 4.9 mmol/L [facility] Chloride 117(H) 97 - 110 mmol/L [facility] CO2 18(L) 22 - 32 mmol/L [facility] Anion gap 12 2 - 15 mmol/L [facility] BUN 40(H) 6 - 25 mg/dL [facility] Creatinine 1.48(H) 0.60 - 1.10 mg/dL [facility] Glucose 221(H) 70 - 199 mg/dL [facility] Comment: Interpretive Data Fasting glucose >/= 126 [...] 2022. Calcium 7.5(L) 8.5 - 10.3 mg/dL [facility] Bilirubin, total 0.2 0.1 - 1.2 mg/dL [facility] Protein, pl 5.6(L) 6.5 - 8.5 g/dL [facility] Albumin 2.1(L) 3.5 - 5.0 g/dL [facility] Alk phos 134(H) 40 - 130 Units/L [facility] ALT 14 7 - 45 Units/L [facility] AST 27 10 - 45 Units/L [facility] Blood 09/20/2024 12:2 7 AM FIELD CONTROL INSPECTOR 09/20/2024 12:27 AM FIELD CONTROL INSPECTOR us Elida Vigil DO LAB BLOOD ORDERABLES F inal Result Performing Organization Address [facility] Co de Phone Number [facility] [address] Department [place] [address] * (ABNORMAL) POCT glucose (09/19/2024 11:00 PM FIELD CONTROL INSPECTOR) [facility] Glucose, POC 217(H) 70 - 199 mg/dL Comment: For Glucose values <35 mg/dl when Hematocrit is >60 mg/dl,the test may not accurately detect significant hypoglycemia,and testing in the Laboratory should be considered if clinically indicated. Blood 09/19/2024 11:0 0 PM FIELD CONTROL INSPECTOR 09/19/2024 11:00 PM FIELD CONTROL INSPECTOR us Flo Villagran MD LAB POCT ORDERABLES - DEVICE Final Result Performing Organization Address [facility]/ZIP Co de Phone Number [facility] [address] [address] * POCT glucose (09/19/2024 7:52 PM FIELD CONTROL INSPECTOR) Glucose, POC 196 70 - 199 mg/dL Comment: For Glucose values <35 mg/dl when Hematocrit is >60 mg/dl,the test may not accurately detect significant hypoglycemia,and testing in the Laboratory should be considered if clinically indicated. Blood 09/19/2024 7:52 PM FIELD CONTROL INSPECTOR 09/19/2024 7:52 PM FIELD CONTROL INSPECTOR Flo Villagran MD LAB POCT ORDERABLES - DEVICE Final Result Performing Organization Address City/[facility]/ZIP Co de Phone Number [facility] [address] [facility] [employer] [place] [address] * POCT glucose (09/19/2024 4:55 PM FIELD CONTROL INSPECTOR) Glucose, POC 179 70 - 199 mg/dL Comment: For Glucose values <35 mg/dl when Hematocrit is >60 mg/dl,the test may not accurately detect significant hypoglycemia,and testing in the Laboratory should be considered if clinically indicated. Blood 09/19/2024 4:55 PM FIELD CONTROL INSPECTOR 09/19/2024 4:55 PM FIELD CONTROL INSPECTOR Flo Villagran MD LAB POCT ORDERABLES - DEVICE Final Result Performing Organization Address City/[facility] Co de Phone Number [facility] [address] [place] [address] * (ABNORMAL) POCT glucose (09/19/2024 12:31 PM FIELD CONTROL INSPECTOR) Glucose, POC 260(H) 70 - 199 mg/dL Comment: For Glucose values <35 mg/dl when Hematocrit is >60 mg/dl,the test may not accurately detect significant hypoglycemia,and testing in the Laboratory should be considered if clinically indicated. Blood 09/19/2024 12:3 1 PM FIELD CONTROL INSPECTOR 09/19/2024 12:31 PM FIELD CONTROL INSPECTOR Flo Villagran MD LAB POCT ORDERABLES - DEVICE Final Result [facility] [address] Department [place] [employer] [place] [address] * Potassium (09/19/2024 10:04 AM FIELD CONTROL INSPECTOR) Potassium, pl 3.4 3.3 - 4.9 mmol/L Blood 09/19/2024 10:0 4 AM FIELD CONTROL INSPECTOR 09/19/2024 10:12 AM FIELD CONTROL INSPECTOR Elida Vigil DO LAB BLOOD ORDERABLES F inal Result Performing Organization Address [facility] Co de Phone Number [facility] [address] Department [place] [address] * EEG (09/19/2024 8:50 AM FIELD CONTROL INSPECTOR) Anatomical Region Laterality Modality EEG Narrative 09/19/2024 1:18 PM FIELD CONTROL INSPECTOR REPORT OF ELECTROENCEPHALOGRAM DATE OF STUDY: 09/19/24 Brooke Marshall 1975 REASON FOR STUDY: Confusional state BRIEF HISTORY: Brooke Marshall is a 48 y.o. year old female currently in the ICU, still on ventilator. Admitted with DKA and influenza. Has been witnessed to have diminished mental status. DESCRIPTION: This is a routine 18-channel EEG. The underlying background rhythm consists of a [id number] voltage 5-7 Hz theta rhythm which remains [...] seen. Sara Talbot M.D. [facility] Office: Nathaniel Calderon MD NEUROLOGY ORDERABLES Final Re sult * (ABNORMAL) POCT glucose (09/19/2024 7:53 AM FIELD CONTROL INSPECTOR) Glucose, POC 214(H) 70 - 199 mg/dL Comment: For Glucose values <35 mg/dl when Hematocrit is >60 mg/dl,the test may not accurately detect significant hypoglycemia,and testing in the Laboratory should be considered if clinically indicated. Blood 09/19/2024 7:53 AM FIELD CONTROL INSPECTOR 09/19/2024 7:53 AM FIELD CONTROL INSPECTOR [facility] POCT ORDERABLES - DEVICE Final Result Performing Organization Address [facility] Co de Phone Number [facility] [address] [employer] [place], [place] [id number] * (ABNORMAL) POCT glucose (09/19/2024 3:58 AM FIELD CONTROL INSPECTOR) Glucose, POC 234(H) 70 - 199 mg/dL Comment: For Glucose values <35 mg/dl when Hematocrit is >60 mg/dl,the test may not accurately detect significant hypoglycemia,and testing in the Laboratory should be considered if clinically indicated. Blood 09/19/2024 3:58 AM FIELD CONTROL INSPECTOR 09/19/2024 3:58 AM FIELD CONTROL INSPECTOR Elidamartha Vigil LAB POCT ORDERABLES - DEVICE Final Result Performing Organization Address [facility] Co de Phone Number [facility] [address] Department of [employer] [place], [place] [id number] * (ABNORMAL) eGFR (09/19/2024 1:46 AM FIELD CONTROL INSPECTOR) eGFR 36(L) >=60 mL/min/1. 73 m2 Comment: [...] last reviewed 2021. Blood 09/19/2024 1:46 AM FIELD CONTROL INSPECTOR 09/19/2024 1:46 AM FIELD CONTROL INSPECTOR us Elida Vigil DO LAB BLOOD ORDERABLES F inal Result [facility] [address] Department [place] [address] * (ABNORMAL) Differential, auto (09/19/2024 1:46 AM FIELD CONTROL INSPECTOR) Pathologist [facility] Neutrophil abs 6.7(H) 1.5 - 6.5 K/cumm Imm gran abs 0.5(H) 0.0 - 0.1 K/cumm [facility] Lymphocyte abs 0.7(L) 0.8 - 3.3 K/cumm [facility] Monocyte abs 1.1(H) 0.2 - 0.8 K/cumm [facility] Eosinophil abs 0.1 0.0 - 0.5 K/cumm [facility] Basophil abs 0.0 0.0 - 0.1 K/cumm [facility] Neutrophil pct 72.5 % [facility] Comment: Interpretive Data Percent cell count reference ranges are not reported, since discordance with absolute values may lead to misinterpretation of CBC data. Current Interpretive Data was last revised on 2017. Imm gran pct 5.8 % [facility] Comment: Interpretive Data Percent cell count reference ranges are not reported, since discordance with absolute values may lead to misinterpretation of CBC data. Current Interpretive Data was last revised on 2017. Lymphocyte pct 8.1 % [facility] Comment: Interpretive Data Percent cell count reference ranges are not reported, since discordance with absolute values may lead to misinterpretation of CBC data. Current Interpretive Data was last revised on 2017. Monocyte pct 12.3 % [facility] Comment: Interpretive Data Percent cell count reference ranges are not reported, since discordance with absolute values may lead to misinterpretation of CBC data. Current Interpretive Data was last revised on 2017. Eosinophil pct 1.2 % [facility] Comment: Interpretive Data Percent cell count reference ranges are not reported, since discordance with absolute values may lead to misinterpretation of CBC data. Current Interpretive Data was last revised on 2017. Basophil pct 0.1 % [facility] Comment: Interpretive Data Percent cell count reference ranges are not reported, since discordance with absolute values may lead to misinterpretation of CBC data. Current Interpretive Data was last revised on 2017. Blood 09/19/2024 1:46 AM FIELD CONTROL INSPECTOR 09/19/2024 1:46 AM FIELD CONTROL INSPECTOR us Elida Vigil DO LAB BLOOD ORDERABLES F inal Result [facility] [address] Department [place] [address] * (ABNORMAL) CBC with auto differential (09/19/2024 1:46 AM FIELD CONTROL INSPECTOR) WBC 9.2 3.8 - 9.9 K/cumm Hgb 7.5(L) 11.9 - 15.5 g/dL [facility] Hct 23.7(L) 35.6 - 45.5 % [facility] Plt 150 150 - 400 K/cumm [facility] MPV 13.4(H) 9.1 - 12.3 fL [facility] RBC 2.61(L) 3.90 - 5.20 M/cumm [facility] MCV 90.8 81.3 - 96.4 fL [facility] MCH 28.7 27.1 - 33.3 pg [facility] MCHC 31.6(L) 32.3 - 35.7 g/dL [facility] RDW CV 14.9 11.1 - 14.9 % [facility] RDW SD 49.1(H) 35.7 - 48.1 fL [facility] NRBC abs 0.00 0.00 - 0.01 K/cumm [facility] Blood 09/19/2024 1:46 AM FIELD CONTROL INSPECTOR 09/19/2024 1:46 AM FIELD CONTROL INSPECTOR Elida Winsome Vigil DO LAB BLOOD ORDERABLES E dited Result - Final Performing Organization Address City/[facility]/ZIP Co de Phone Number [facility] [address] [place] [address] * Manual Differential (09/19/2024 1:46 AM FIELD CONTROL INSPECTOR) Pathologist [facility] Differential Auto RBC morphology Normal [facility] Morphology scrn See Comment [facility] Comment:PLT: Platelet morpho logy normal Blood 09/19/2024 1:46 AM FIELD CONTROL INSPECTOR 09/19/2024 1:46 AM FIELD CONTROL INSPECTOR Elidamartha Vigil DO LAB BLOOD ORDERABLES F inal Result [facility] [address] Department [employer] [place] [address] * Phosphorus (09/19/2024 1:46 AM FIELD CONTROL INSPECTOR) Phosphorus, pl 3.0 2.3 - 4.5 mg/dL Blood 09/19/2024 1:46 AM FIELD CONTROL INSPECTOR 09/19/2024 1:46 AM FIELD CONTROL INSPECTOR Elida Vigil LAB BLOOD ORDERABLES F inal Result Performing Organization Address [facility]/ZIP Co de Phone Number [facility] [address] Department of [employer] [place] [address] * Magnesium (09/19/2024 1:46 AM FIELD CONTROL INSPECTOR) [facility] Magnesium 2.3 1.4 - 2.5 mg/dL Blood 09/19/2024 1:46 AM FIELD CONTROL INSPECTOR 09/19/2024 1:46 AM FIELD CONTROL INSPECTOR Elida Vigil LAB BLOOD ORDERABLES F inal Result Performing Organization Address [facility] de Phone Number [facility] [address] Department [place] [address] * (ABNORMAL) Comprehensive metabolic panel (09/19/2024 1:46 AM FIELD CONTROL INSPECTOR) [facility] Sodium 145 135 - 145 mmol/L Potassium, pl 2.6(C) 3.3 - 4.9 mmol/L [facility] Comment:Critical result call ed to and read back by Amber Gaines (RN) on 09/19/24 @ 0210 to [id number] Chloride 113(H) 97 - 110 mmol/L [facility] CO2 20(L) 22 - 32 mmol/L [facility] Anion gap 12 2 - 15 mmol/L [facility] BUN 41(H) 6 - 25 mg/dL [facility] Creatinine 1.73(H) 0.60 - 1.10 mg/dL [facility] Glucose 249(H) 70 - 199 mg/dL [facility] Comment: Interpretive Data Fasting glucose >/= 126 [...] 2022. Calcium 7.5(L) 8.5 - 10.3 mg/dL [facility] Bilirubin, total 0.3 0.1 - 1.2 mg/dL [facility] Protein, pl 5.6(L) 6.5 - 8.5 g/dL [facility] Albumin 2.0(L) 3.5 - 5.0 g/dL [facility] Alk phos 127 40 - 130 Units/L [facility] ALT 12 7 - 45 Units/L [facility] AST 24 10 - 45 Units/L [facility] Blood 09/19/2024 1:46 AM FIELD CONTROL INSPECTOR 09/19/2024 1:46 AM FIELD CONTROL INSPECTOR Elida Vigil LAB BLOOD ORDERABLES F inal Result Performing Organization Address [facility] Co de Phone Number [facility] [address] Department of [employer] [place] [address] * Ammonia (09/19/2024 1:07 AM FIELD CONTROL INSPECTOR) Pathologist [facility] Ammonia 40 <=50 mcmol/L Blood 09/19/2024 1:07 AM FIELD CONTROL INSPECTOR 09/19/2024 1:12 AM FIELD CONTROL INSPECTOR Elida Vigil LAB BLOOD ORDERABLES F inal Result Performing Organization Address [facility] de Phone Number [facility] [address] Department of [employer] [place] [address] * (ABNORMAL) POCT glucose (09/18/2024 11:58 PM FIELD CONTROL INSPECTOR) Glucose, POC 231(H) 70 - 199 mg/dL Comment: For Glucose values <35 mg/dl when Hematocrit is >60 mg/dl,the test may not accurately detect significant hypoglycemia,and testing in the Laboratory should be considered if clinically indicated. Blood 09/18/2024 11:5 8 PM FIELD CONTROL INSPECTOR 09/18/2024 11:58 PM FIELD CONTROL INSPECTOR Elida Winsome Vigil LAB POCT ORDERABLES - DEVICE Final Result Performing Organization Address [facility] Co de Phone Number [facility] [address] Department [employer] [place] [address] * (ABNORMAL) POCT glucose (09/18/2024 9:10 PM FIELD CONTROL INSPECTOR) Glucose, POC 261(H) 70 - 199 mg/dL Comment: For Glucose values <35 mg/dl when Hematocrit is >60 mg/dl,the test may not accurately detect significant hypoglycemia,and testing in the Laboratory should be considered if clinically indicated. Blood 09/18/2024 9:10 PM FIELD CONTROL INSPECTOR 09/18/2024 9:10 PM FIELD CONTROL INSPECTOR Elida Vigil [facility] POCT ORDERABLES - DEVICE Final Result Performing Organization Address [facility] de Phone Number [facility] [address] [facility] [employer] [place] [address] * (ABNORMAL) POCT glucose (09/18/2024 4:18 PM FIELD CONTROL INSPECTOR) Glucose, POC 229(H) 70 - 199 mg/dL Comment: For Glucose values <35 mg/dl when Hematocrit is >60 mg/dl,the test may not accurately detect significant hypoglycemia,and testing in the Laboratory should be considered if clinically indicated. Blood 09/18/2024 4:18 PM FIELD CONTROL INSPECTOR 09/18/2024 4:18 PM FIELD CONTROL INSPECTOR Elida Winsome Vigil LAB POCT ORDERABLES - DEVICE Final Result Performing Organization Address [facility] Co de Phone Number [facility] [address] [facility] [employer] [place] [address] * (ABNORMAL) POCT glucose (09/18/2024 12:07 PM FIELD CONTROL INSPECTOR) [facility] Glucose, POC 260(H) 70 - 199 mg/dL Comment: For Glucose values <35 mg/dl when Hematocrit is >60 mg/dl,the test may not accurately detect significant hypoglycemia,and testing in the Laboratory should be considered if clinically indicated. Blood 09/18/2024 12:0 7 PM FIELD CONTROL INSPECTOR 09/18/2024 12:07 PM FIELD CONTROL INSPECTOR Elida Winsome Vigil LAB POCT ORDERABLES - DEVICE Final Result Performing Organization Address [facility]/ZIP Co de Phone Number [facility] [address] Department [employer] [place], [place] [id number] * (ABNORMAL) DIC Platelet (09/18/2024 8:13 AM FIELD CONTROL INSPECTOR) [facility] Plt 147(L) 150 - 400 K/cumm Blood 09/18/2024 8:13 AM FIELD CONTROL INSPECTOR 09/18/2024 8:25 AM FIELD CONTROL INSPECTOR Elidamartha Vigil LAB BLOOD ORDERABLES E dited Result - Final Performing Organization Address [facility] Co de Phone Number [facility] [address] Department of [employer] [place], [place] [phone] * (ABNORMAL) Differential, auto (09/18/2024 8:13 AM FIELD CONTROL INSPECTOR) [facility] Neutrophil abs 7.0(H) 1.5 - 6.5 K/cumm Imm gran abs 0.6(H) 0.0 - 0.1 K/cumm [facility] Lymphocyte abs 0.7(L) 0.8 - 3.3 K/cumm [facility] Monocyte abs 1.4(H) 0.2 - 0.8 K/cumm [facility] Eosinophil abs 0.1 0.0 - 0.5 K/cumm [facility] Basophil abs 0.1 0.0 - 0.1 K/cumm [facility] Neutrophil pct 71.8 % [facility] Comment: Interpretive Data Percent cell count reference ranges are not reported, since discordance with absolute values may lead to misinterpretation of CBC data. Current Interpretive Data was last revised on 2017. Imm gran pct 6.0 % [facility] Comment: Interpretive Data Percent cell count reference ranges are not reported, since discordance with absolute values may lead to misinterpretation of CBC data. Current Interpretive Data was last revised on 2017. Lymphocyte pct 6.6 % [facility] Comment: Interpretive Data Percent cell count reference ranges are not reported, since discordance with absolute values may lead to misinterpretation of CBC data. Current Interpretive Data was last revised on 2017. Monocyte pct 14.1 % [facility] Comment: Interpretive Data Percent cell count reference ranges are not reported, since discordance with absolute values may lead to misinterpretation of CBC data. Current Interpretive Data was last revised on 2017. Eosinophil pct 0.9 % [facility] Comment: Interpretive Data Percent cell count reference ranges are not reported, since discordance with absolute values may lead to misinterpretation of CBC data. Current Interpretive Data was last revised on 2017. Basophil pct 0.6 % [facility] Comment: Interpretive Data Percent cell count reference ranges are not reported, since discordance with absolute values may lead to misinterpretation of CBC data. Current Interpretive Data was last revised on 2017. Blood 09/18/2024 8:13 AM FIELD CONTROL INSPECTOR 09/18/2024 8:13 AM FIELD CONTROL INSPECTOR Elida Vigil DO LAB BLOOD ORDERABLES F inal Result [facility] [address] Department [place] [address] * DIC Schistocytes (09/18/2024 8:13 AM FIELD CONTROL INSPECTOR) Schistocytes None Seen None Seen Blood 09/18/2024 8:13 AM FIELD CONTROL INSPECTOR 09/18/2024 8:25 AM FIELD CONTROL INSPECTOR Elidaflorence Vigil DO LAB BLOOD ORDERABLES F inal Result [facility] [address] Department [place] [address] * (ABNORMAL) CBC with auto differential (09/18/2024 8:13 AM FIELD CONTROL INSPECTOR) [facility] WBC 9.8 3.8 - 9.9 K/cumm Hgb 8.9(L) 11.9 - 15.5 g/dL [facility] Hct 28.7(L) 35.6 - 45.5 % [facility] Plt 147(L) 150 - 400 K/cumm [facility] MPV 13.2(H) 9.1 - 12.3 fL [facility] RBC 3.06(L) 3.90 - 5.20 M/cumm [facility] MCV 93.8 81.3 - 96.4 fL [facility] MCH 29.1 27.1 - 33.3 pg [facility] MCHC 31.0(L) 32.3 - 35.7 g/dL [facility] RDW CV 14.7 11.1 - 14.9 % [facility] RDW SD 50.8(H) 35.7 - 48.1 fL [facility] NRBC abs 0.03(H) 0.00 - 0.01 K/cumm [facility] Blood 09/18/2024 8:13 AM FIELD CONTROL INSPECTOR 09/18/2024 8:20 AM FIELD CONTROL INSPECTOR Elida Vigil DO LAB BLOOD ORDERABLES E dited Result - Final [facility] [address] Department [place] [address] * (ABNORMAL) POCT glucose (09/18/2024 7:57 AM FIELD CONTROL INSPECTOR) [facility] Glucose, POC 271(H) 70 - 199 mg/dL Comment: For Glucose values <35 mg/dl when Hematocrit is >60 mg/dl,the test may not accurately detect significant hypoglycemia,and testing in the Laboratory should be considered if clinically indicated. Blood 09/18/2024 7:57 AM FIELD CONTROL INSPECTOR 09/18/2024 7:57 AM FIELD CONTROL INSPECTOR Elidaflorence Schumacher Agiliance LAB POCT ORDERABLES - DEVICE Final Result Performing Organization Address [facility] Co de Phone Number [facility] [address] [place] [address] * (ABNORMAL) POCT glucose (09/18/2024 7:56 AM FIELD CONTROL INSPECTOR) Glucose, POC 240(H) 70 - 199 mg/dL Comment: For Glucose values <35 mg/dl when Hematocrit is >60 mg/dl,the test may not accurately detect significant hypoglycemia,and testing in the Laboratory should be considered if clinically indicated. Blood 09/18/2024 7:56 AM FIELD CONTROL INSPECTOR 09/18/2024 7:56 AM FIELD CONTROL INSPECTOR Elidaflorence Schumacher ethorityhenok LAB POCT ORDERABLES - DEVICE Final Result Performing Organization Address [facility] Co de Phone Number [facility] [address] Department [place] [address] * (ABNORMAL) eGFR (09/18/2024 7:26 AM FIELD CONTROL INSPECTOR) eGFR 40(L) >=60 mL/min/1. 73 m2 Comment: [...] last reviewed 2021. Blood 09/18/2024 7:26 AM FIELD CONTROL INSPECTOR 09/18/2024 7:47 AM FIELD CONTROL INSPECTOR Elidaflorence Schumacher [employer] DO LAB BLOOD ORDERABLES F inal Result Performing Organization Address City/[facility]/ZIP Co de Phone Number [facility] [address] [facility] [employer] [place], [place] [phone] * Phosphorus (09/18/2024 7:26 AM FIELD CONTROL INSPECTOR) Phosphorus, pl 2.9 2.3 - 4.5 mg/dL Comment:Reviewed - dialysis patient Blood 09/18/2024 7:26 AM FIELD CONTROL INSPECTOR 09/18/2024 7:47 AM FIELD CONTROL INSPECTOR Elida Winsome [facility] LAB BLOOD ORDERABLES F inal Result Performing Organization Address [facility] de Phone Number [facility] [address] [facility] [employer] [place] [address] * Magnesium (09/18/2024 7:26 AM FIELD CONTROL INSPECTOR) Magnesium 2.3 1.4 - 2.5 mg/dL Blood 09/18/2024 7:26 AM FIELD CONTROL INSPECTOR 09/18/2024 7:47 AM FIELD CONTROL INSPECTOR Framebridgerice [employer] LAB BLOOD ORDERABLES F inal Result Performing Organization Address City/[facility] Co de Phone Number [facility] [address] [facility] [employer] [place], [place] [phone] * Vitamin B12 (09/18/2024 7:26 AM FIELD CONTROL INSPECTOR) Vitamin B12 878 230 - 1,250 pg/mL Blood 09/18/2024 7:26 AM FIELD CONTROL INSPECTOR 09/18/2024 7:47 AM FIELD CONTROL INSPECTOR us Elida Vigil DO LAB BLOOD ORDERABLES F inal Result [facility] [address] Department [place] [address] * (ABNORMAL) Comprehensive metabolic panel (09/18/2024 7:26 AM FIELD CONTROL INSPECTOR) [facility] Sodium 143 135 - 145 mmol/L Potassium, pl 3.4 3.3 - 4.9 mmol/L [facility] Comment:Hemolyzed; potassium value may be falsely elevated by as much as 0.3 - 0.5 mmol/L. Suggest redraw and reanalysis Chloride 111(H) 97 - 110 mmol/L [facility] CO2 19(L) 22 - 32 mmol/L [facility] Anion gap 13 2 - 15 mmol/L [facility] BUN 39(H) 6 - 25 mg/dL [facility] Creatinine 1.57(H) 0.60 - 1.10 mg/dL [facility] Glucose 227(H) 70 - 199 mg/dL [facility] Comment: Interpretive Data Fasting glucose >/= 126 [...] 2022. Calcium 7.8(L) 8.5 - 10.3 mg/dL [facility] Bilirubin, total 0.4 0.1 - 1.2 mg/dL [facility] Protein, pl 5.9(L) 6.5 - 8.5 g/dL [facility] Albumin 2.2(L) 3.5 - 5.0 g/dL [facility] Alk phos 141(H) 40 - 130 Units/L [facility] ALT 18 7 - 45 Units/L [facility] AST 31 10 - 45 Units/L [facility] Comment:Slightly Hemolyzed S pecimen Blood 09/18/2024 7:26 AM FIELD CONTROL INSPECTOR 09/18/2024 7:47 AM FIELD CONTROL INSPECTOR Elida Winsome Vigil DO LAB BLOOD ORDERABLES F inal Result Performing Organization Address [facility] Co de Phone Number [facility] [address] Department of [employer] [place], [place] [phone] * (ABNORMAL) POCT glucose (09/18/2024 4:28 AM FIELD CONTROL INSPECTOR) [facility] Glucose, POC 243(H) 70 - 199 mg/dL Comment: For Glucose values <35 mg/dl when Hematocrit is >60 mg/dl,the test may not accurately detect significant hypoglycemia,and testing in the Laboratory should be considered if clinically indicated. Blood 09/18/2024 4:28 AM FIELD CONTROL INSPECTOR 09/18/2024 4:28 AM FIELD CONTROL INSPECTOR Elida Winsome Vigil DO [facility] POCT ORDERABLES - DEVICE Final Result Performing Organization Address [facility] de Phone Number [facility] [address] Department of [employer] [place] [address] * (ABNORMAL) DIC Coagulation (09/18/2024 4:20 AM FIELD CONTROL INSPECTOR) [facility] PT DIC 10.5 10.3 - 13.7 sec INR DIC 0.97 0.90 - 1.20 [facility] PTT DIC 18(L) 28 - 38 sec [facility] Comment: Specimen integrity okay Interpretive Data Heparin therapeutic range: 66.0 - 100.0 seconds. Range based on correlation with therapeutic heparin activity range of 0.3 - 0.7 Units/mL. Current interpretive data was last revised on 2023. D-Dimer 13,588(H) <=499 ng/mL U [facility] Comment: Specimen not clotted and filled properly [...] 2019. Fibrinogen 775(H) 170 - 400 mg/dL [facility] Blood 09/18/2024 4:20 AM FIELD CONTROL INSPECTOR 09/18/2024 4:21 AM FIELD CONTROL INSPECTOR Eilda Vigil DO LAB BLOOD ORDERABLES F inal Result Performing Organization Address [facility] Co de Phone Number [facility] [address] [employer] [place], [place] [phone] * (ABNORMAL) POCT glucose (09/17/2024 11:57 PM FIELD CONTROL INSPECTOR) Pathologist [facility] Glucose, POC 263(H) 70 - 199 mg/dL Comment: For Glucose values <35 mg/dl when Hematocrit is >60 mg/dl,the test may not accurately detect significant hypoglycemia,and testing in the Laboratory should be considered if clinically indicated. Blood 09/17/2024 11:5 7 PM FIELD CONTROL INSPECTOR 09/17/2024 11:57 PM FIELD CONTROL INSPECTOR Elida Vigil DO LAB POCT ORDERABLES - DEVICE Final Result Performing Organization Address [facility]/ZIP Co de Phone Number [facility] [address] Department of [employer] [place], [place] [phone] * (ABNORMAL) POCT glucose (09/17/2024 8:02 PM FIELD CONTROL INSPECTOR) Glucose, POC 291(H) 70 - 199 mg/dL Comment: For Glucose values <35 mg/dl when Hematocrit is >60 mg/dl,the test may not accurately detect significant hypoglycemia,and testing in the Laboratory should be considered if clinically indicated. Blood 09/17/2024 8:02 PM FIELD CONTROL INSPECTOR 09/17/2024 8:02 PM FIELD CONTROL INSPECTOR Elida Winsome Vigil DO LAB POCT ORDERABLES - DEVICE Final Result Performing Organization Address [facility] de Phone Number [facility] [address] Department of Laboratories [place], [place] [phone] * (ABNORMAL) POCT glucose (09/17/2024 4:21 PM FIELD CONTROL INSPECTOR) [facility] Glucose, POC 283(H) 70 - 199 mg/dL Comment: For Glucose values <35 mg/dl when Hematocrit is >60 mg/dl,the test may not accurately detect significant hypoglycemia,and testing in the Laboratory should be considered if clinically indicated. Blood 09/17/2024 4:21 PM FIELD CONTROL INSPECTOR 09/17/2024 4:21 PM FIELD CONTROL INSPECTOR Elida Vigil LAB POCT ORDERABLES - DEVICE Final Result Performing Organization Address [facility] de Phone Number [facility] [address] Department of [employer] [place] [address] * (ABNORMAL) eGFR (09/17/2024 2:52 PM FIELD CONTROL INSPECTOR) [facility] eGFR 34(L) >=60 mL/min/1. 73 m2 [...] last reviewed 2021. Blood 09/17/2024 2:52 PM FIELD CONTROL INSPECTOR 09/17/2024 2:57 PM FIELD CONTROL INSPECTOR us Elida Vigil DO LAB BLOOD ORDERABLES F inal Result [facility] [address] Department [place] [address] * (ABNORMAL) Renal function panel (09/17/2024 2:52 PM FIELD CONTROL INSPECTOR) Sodium 143 135 - 145 mmol/L Potassium, pl 3.6 3.3 - 4.9 mmol/L [facility] Chloride 110 97 - 110 mmol/L [facility] CO2 21(L) 22 - 32 mmol/L [facility] Anion gap 12 2 - 15 mmol/L [facility] BUN 41(H) 6 - 25 mg/dL [facility] Creatinine 1.82(H) 0.60 - 1.10 mg/dL [facility] Glucose 290(H) 70 - 199 mg/dL [facility] Comment: Interpretive Data Fasting glucose >/= 126 [...] 2022. Calcium 7.9(L) 8.5 - 10.3 mg/dL [facility] Phosphorus, pl 5.0(H) 2.3 - 4.5 mg/dL [facility] Comment:Reviewed Albumin 2.4(L) 3.5 - 5.0 g/dL [facility] Blood 09/17/2024 2:52 PM FIELD CONTROL INSPECTOR 09/17/2024 2:57 PM FIELD CONTROL INSPECTOR Elida Vigil DO LAB BLOOD ORDERABLES F inal Result Performing Organization Address [facility] Co de Phone Number [facility] [address] Department [place] [address] * (ABNORMAL) POCT glucose (09/17/2024 12:23 PM FIELD CONTROL INSPECTOR) Glucose, POC 278(H) 70 - 199 mg/dL Comment: For Glucose values <35 mg/dl when Hematocrit is >60 mg/dl,the test may not accurately detect significant hypoglycemia,and testing in the Laboratory should be considered if clinically indicated. Blood 09/17/2024 12:2 3 PM FIELD CONTROL INSPECTOR 09/17/2024 12:23 PM FIELD CONTROL INSPECTOR Elida Vigil DO LAB POCT ORDERABLES - DEVICE Final Result Performing Organization Address [facility] de Phone Number [facility] [address] [place] [address] * (ABNORMAL) POCT glucose (09/17/2024 7:09 AM FIELD CONTROL INSPECTOR) Glucose, POC 294(H) 70 - 199 mg/dL Comment: For Glucose values <35 mg/dl when Hematocrit is >60 mg/dl,the test may not accurately detect significant hypoglycemia,and testing in the Laboratory should be considered if clinically indicated. Blood 09/17/2024 7:09 AM FIELD CONTROL INSPECTOR 09/17/2024 7:09 AM FIELD CONTROL INSPECTOR Elida Vigil DO LAB POCT ORDERABLES - DEVICE Final Result Performing Organization Address [facility] Co de Phone Number [facility] [address] Department [place] [address] * (ABNORMAL) POCT glucose (09/17/2024 4:42 AM FIELD CONTROL INSPECTOR) [facility] Glucose, POC 300(H) 70 - 199 mg/dL Comment: For Glucose values <35 mg/dl when Hematocrit is >60 mg/dl,the test may not accurately detect significant hypoglycemia,and testing in the Laboratory should be considered if clinically indicated. Blood 09/17/2024 4:42 AM FIELD CONTROL INSPECTOR 09/17/2024 4:42 AM FIELD CONTROL INSPECTOR Elida Vigil DO LAB POCT ORDERABLES - DEVICE Final Result [facility] [address] Department [place] [address] * (ABNORMAL) eGFR (09/17/2024 4:10 AM FIELD CONTROL INSPECTOR) [facility] eGFR 36(L) >=60 mL/min/1. 73 m2 [...] last reviewed 2021. Blood 09/17/2024 4:10 AM FIELD CONTROL INSPECTOR 09/17/2024 4:10 AM FIELD CONTROL INSPECTOR Elida Vigil LAB BLOOD ORDERABLES F inal Result Performing Organization Address City/[facility]/ZIP Co de Phone Number [facility] [address] [facility] [employer] [place], [place] [phone] * Thyroid Function Medon (09/17/2024 4:10 AM FIELD CONTROL INSPECTOR) [facility] TSH 1.79 0.30 - 4.20 mcIUnit/mL Blood 09/17/2024 4:10 AM FIELD CONTROL INSPECTOR 09/17/2024 4:10 AM FIELD CONTROL INSPECTOR Elida Vigil LAB BLOOD ORDERABLES F inal Result Performing Organization Address [facility] Co de Phone Number [facility] [address] Department of [employer] [place] [address] * (ABNORMAL) CBC with auto differential (09/17/2024 4:10 AM FIELD CONTROL INSPECTOR) [facility] WBC 7.1 3.8 - 9.9 K/cumm Hgb 8.7(L) 11.9 - 15.5 g/dL [facility] Hct 27.4(L) 35.6 - 45.5 % [facility] Plt 93(L) 150 - 400 K/cumm [facility] MPV 12.8(H) 9.1 - 12.3 fL [facility] RBC 3.03(L) 3.90 - 5.20 M/cumm [facility] MCV 90.4 81.3 - 96.4 fL [facility] MCH 28.7 27.1 - 33.3 pg [facility] MCHC 31.8(L) 32.3 - 35.7 g/dL [facility] RDW CV 14.6 11.1 - 14.9 % [facility] RDW SD 48.9(H) 35.7 - 48.1 fL [facility] NRBC abs 0.00 0.00 - 0.01 K/cumm [facility] Blood 09/17/2024 4:10 AM FIELD CONTROL INSPECTOR 09/17/2024 4:10 AM FIELD CONTROL INSPECTOR us Elida Vigil DO LAB BLOOD ORDERABLES F inal Result [facility] [address] [place] Department [place] [address] * (ABNORMAL) Manual Differential (09/17/2024 4:10 AM FIELD CONTROL INSPECTOR) Differential Manual Cells Counted 120 [facility] Neutrophil abs 5.9 1.5 - 6.5 K/cumm [facility] Imm gran abs 0.2(H) 0.0 - 0.1 K/cumm [facility] Lymphocyte abs 0.6(L) 0.8 - 3.3 K/cumm [facility] Monocyte abs 0.4 0.2 - 0.8 K/cumm [facility] Eosinophil abs 0.1 0.0 - 0.5 K/cumm [facility] Basophil abs 0.1 0.0 - 0.1 K/cumm [facility] Neutrophil pct 82.6 % [facility] Comment: Interpretive Data Percent cell count reference ranges are not reported, since discordance with absolute values may lead to misinterpretation of CBC data. Current Interpretive Data was last revised on 2017. Lymphocyte pct 8.3 % [facility] Comment: Interpretive Data Percent cell count reference ranges are not reported, since discordance with absolute values may lead to misinterpretation of CBC data. Current Interpretive Data was last revised on 2017. Monocyte pct 5.0 % [facility] Comment: Interpretive Data Percent cell count reference ranges are not reported, since discordance with absolute values may lead to misinterpretation of CBC data. Current Interpretive Data was last revised on 2017. Eosinophil pct 0.8 % [facility] Comment: Interpretive Data Percent cell count reference ranges are not reported, since discordance with absolute values may lead to misinterpretation of CBC data. Current Interpretive Data was last revised on 2017. Basophil pct 0.8 % [facility] Comment: Interpretive Data Percent cell count reference ranges are not reported, since discordance with absolute values may lead to misinterpretation of CBC data. Current Interpretive Data was last revised on 2017. Myelocyte pct 0.8(H) 0.0 - 0.0 % [facility] Promyelocyte pct 1.7(H) 0.0 - 0.0 % [facility] RBC morphology Present(A) [facility] Anisocytosis Slight(A) [facility] Morphology scrn See Comment [facility] Comment:PLT: Platelet morpho logy normal Blood 09/17/2024 4:10 AM FIELD CONTROL INSPECTOR 09/17/2024 4:10 AM FIELD CONTROL INSPECTOR WinBuyere FloQast DO LAB BLOOD ORDERABLES F inal Result Performing Organization Address City/[facility]/ZIP Co de Phone Number [facility] [address] [facility] [employer] [place], [place] [id number] * (ABNORMAL) Phosphorus (09/17/2024 4:10 AM FIELD CONTROL INSPECTOR) Phosphorus, pl 2.2(L) 2.3 - 4.5 mg/dL Blood 09/17/2024 4:10 AM FIELD CONTROL INSPECTOR 09/17/2024 4:10 AM FIELD CONTROL INSPECTOR WinBuyere Agiliance LAB BLOOD ORDERABLES F inal Result Performing Organization Address [facility] Co de Phone Number [facility] [address] [facility] [employer] [place] [address] * Magnesium (09/17/2024 4:10 AM FIELD CONTROL INSPECTOR) Magnesium 2.3 1.4 - 2.5 mg/dL Blood 09/17/2024 4:10 AM FIELD CONTROL INSPECTOR 09/17/2024 4:10 AM FIELD CONTROL INSPECTOR WinBuyere Agiliance LAB BLOOD ORDERABLES F inal Result Performing Organization Address City/[facility] Co de Phone Number [facility] [address] [facility] [employer] [place] [address] * (ABNORMAL) Haptoglobin (09/17/2024 4:10 AM FIELD CONTROL INSPECTOR) Haptoglobin 408(H) 30 - 200 mg/dL Blood 09/17/2024 4:10 AM FIELD CONTROL INSPECTOR 09/17/2024 4:10 AM FIELD CONTROL INSPECTOR us Elida Schumacher Musa DO LAB BLOOD ORDERABLES F inal Result [facility] [address] Department [place] [address] * (ABNORMAL) Comprehensive metabolic panel (09/17/2024 4:10 AM FIELD CONTROL INSPECTOR) Pathologist [facility] Sodium 143 135 - 145 mmol/L Potassium, pl 2.8(L) 3.3 - 4.9 mmol/L [facility] Chloride 109 97 - 110 mmol/L [facility] CO2 21(L) 22 - 32 mmol/L [facility] Anion gap 13 2 - 15 mmol/L [facility] BUN 43(H) 6 - 25 mg/dL [facility] Creatinine 1.71(H) 0.60 - 1.10 mg/dL [facility] Glucose 288(H) 70 - 199 mg/dL [facility] Comment: Interpretive Data Fasting glucose >/= 126 [...] 2022. Calcium 7.9(L) 8.5 - 10.3 mg/dL [facility] Bilirubin, total 0.3 0.1 - 1.2 mg/dL [facility] Protein, pl 5.5(L) 6.5 - 8.5 g/dL [facility] Albumin 2.2(L) 3.5 - 5.0 g/dL [facility] Alk phos 115 40 - 130 Units/L [facility] ALT 18 7 - 45 Units/L [facility] AST 23 10 - 45 Units/L [facility] Blood 09/17/2024 4:10 AM FIELD CONTROL INSPECTOR 09/17/2024 4:10 AM FIELD CONTROL INSPECTOR Elida Vigil DO LAB BLOOD ORDERABLES F inal Result [facility] [address] Department [place] [address] * XR Chest 1 View (09/17/2024 2:59 AM FIELD CONTROL INSPECTOR) Anatomical Region Laterality Modality Body, Chest N/A Computed Radiogr aphy 09/17/2024 7:00 AM FIELD CONTROL INSPECTOR Impressions 09/17/2024 7:00 AM FIELD CONTROL INSPECTOR Comparison chest radiograph 09/16/2024. Endotracheal tube terminates 4 cm above the jessenia. Gastric tube courses along the esophagus and terminates below the diaphragm outside the [id number]. Small lung volumes. Similar-appearing patchy airspace opacity in left lower lung which may represent a pneumonia. Right lung is clear. No pleural effusion or pneumothorax. Heart size and mediastinal contours are stable. Electronically signed by: Teja Angeles MD, PHD Narrative 09/17/2024 7:00 AM FIELD CONTROL INSPECTOR EXAMINATION: XR CHEST 1 VIEW Procedure Note Teja Angeles MD PhD - 09/17/2024 EXAMINATION: XR CHEST 1 VIEW IMPRESSION: Comparison chest radiograph 09/16/2024. Endotracheal tube terminates 4 cm above the jessenia. Gastric tube courses along the esophagus and terminates below the diaphragm outside the [id number]-[id number]. Small lung volumes. Similar-appearing patchy airspace opacity in left lower lung which may represent a pneumonia. Right lung is clear. No pleural effusion or pneumothorax. Heart size and mediastinal contours are stable. Electronically signed by: Teja Angeles MD, PHD us Elida Vigil DO IMG XR PROCEDURES Salma l Result * (ABNORMAL) POCT glucose (09/16/2024 11:48 PM FIELD CONTROL INSPECTOR) Glucose, POC 288(H) 70 - 199 mg/dL Comment: For Glucose values <35 mg/dl when Hematocrit is >60 mg/dl,the test may not accurately detect significant hypoglycemia,and testing in the Laboratory should be considered if clinically indicated. Blood 09/16/2024 11:4 8 PM FIELD CONTROL INSPECTOR 09/16/2024 11:48 PM FIELD CONTROL INSPECTOR Elida Vigil DO LAB POCT ORDERABLES - DEVICE Final Result Performing Organization Address [facility] de Phone Number [facility] [address] [facility] [employer] [place] [address] * (ABNORMAL) POCT glucose (09/16/2024 8:12 PM FIELD CONTROL INSPECTOR) Glucose, POC 265(H) 70 - 199 mg/dL Comment: For Glucose values <35 mg/dl when Hematocrit is >60 mg/dl,the test may not accurately detect significant hypoglycemia,and testing in the Laboratory should be considered if clinically indicated. Blood 09/16/2024 8:12 PM FIELD CONTROL INSPECTOR 09/16/2024 8:12 PM FIELD CONTROL INSPECTOR Elidamartha Vigil DO LAB POCT ORDERABLES - DEVICE Final Result Performing Organization Address [facility] Co de Phone Number [facility] [address] [facility] [employer] [place] [address] * (ABNORMAL) POCT glucose (09/16/2024 4:04 PM FIELD CONTROL INSPECTOR) Glucose, POC 310(H) 70 - 199 mg/dL Comment: For Glucose values <35 mg/dl when Hematocrit is >60 mg/dl,the test may not accurately detect significant hypoglycemia,and testing in the Laboratory should be considered if clinically indicated. Blood 09/16/2024 4:04 PM FIELD CONTROL INSPECTOR 09/16/2024 4:04 PM FIELD CONTROL INSPECTOR Elida Winsome Vigil DO LAB POCT ORDERABLES - DEVICE Final Result Performing Organization Address [facility] de Phone Number [facility] [address] [facility] [employer] [place] [address] * (ABNORMAL) POCT glucose (09/16/2024 12:27 PM FIELD CONTROL INSPECTOR) [facility] Glucose, POC 271(H) 70 - 199 mg/dL Comment: For Glucose values <35 mg/dl when Hematocrit is >60 mg/dl,the test may not accurately detect significant hypoglycemia,and testing in the Laboratory should be considered if clinically indicated. Blood 09/16/2024 12:2 7 PM FIELD CONTROL INSPECTOR 09/16/2024 12:27 PM FIELD CONTROL INSPECTOR Elida Winsome Vigil DO LAB POCT ORDERABLES - DEVICE Final Result Performing Organization Address [facility] de Phone Number [facility] [address] [facility] [employer] [place] [address] * US Vein Duplex Lower Extremity Bilateral Complete (09/16/2024 11:24 AM FIELD CONTROL INSPECTOR) Anatomical Region Laterality Modality Vascular Bilateral Ultrasound 09/16/2024 3:48 PM FIELD CONTROL INSPECTOR Impressions 09/16/2024 3:48 PM FIELD CONTROL INSPECTOR 1. This study does not demonstrate evidence of deep vein thrombosis in the right lower extremity. None 2. This study does not demonstrate evidence of deep vein thrombosis in the left lower extremity. None 3. Note: Small isolated thrombi may be difficult to visualize, especially in the calf veins. Electronically signed by: Kwaku Tolentino M.D. Narrative 09/16/2024 3:48 PM FIELD CONTROL INSPECTOR Lower Extremity Vein Duplex Bilateral DATE: 09/16/2024 [...] IM US PROCEDURES Final Resu lt * GA INSJ NON-TUNNELED CENTRAL VENOUS CATH AGE 5 YR/> (09/16/2024 8:53 AM FIELD CONTROL INSPECTOR) Narrative Hugh Shanks PA - 09/16/2024 8:53 AM FIELD CONTROL INSPECTOR Hugh Shanks PA 09/16/2024 8:54 AM Midline Date/Time: 09/16/2024 8:53 AM Performed by: Hugh Shanks PA Authorized by: Hugh Shanks PA [place] Protocol: RN Notified of Procedure: yes Informed consent: Risks, benefits, alternatives discussed and patient/surgical device sales representative/guardian agrees and accepts Patient's stated [...] * Blood culture Blood (09/16/2024 8:53 AM FIELD CONTROL INSPECTOR) Report Final Report: No growth Blood 09/16/2024 8:53 AM FIELD CONTROL INSPECTOR 09/16/2024 8:56 AM FIELD CONTROL INSPECTOR William [facility] - 09/21/2024 1:01 PM FIELD CONTROL INSPECTOR From a different site than #1. Interpretive [...] organism identification may be performed using the [employer] Blood Culture Identification panel. This assay detects microbial DNA in a blood culture broth. This assay has been cleared by the [facility] Food and Drug Administration and its performance characteristics have been verified by the [facility]. Interpretive data was last revised on September 11, 2022. Elidamartha Schumacher [facility] [employer] MICROBIOLOGY - GEN ERAL ORDERABLES Final Result Performing Organization Address City/[facility]/ZIP Co de Phone Number [facility] [address] [place] [address] * Blood culture Blood (09/16/2024 8:45 AM FIELD CONTROL INSPECTOR) Report Final Report: No growth Blood 09/16/2024 8:45 AM FIELD CONTROL INSPECTOR 09/16/2024 8:56 AM FIELD CONTROL INSPECTOR Narrative [facility] - 09/21/2024 1:01 PM FIELD CONTROL INSPECTOR Interpretive Data 1. Blood cultures are incubated and monitored continuously for 5 days (120 hours). The first negative report is issued within 24 hours of receipt in the laboratory. 2. All positive cultures are resulted and called to physicians/care providers as soon as they are detected. 3. A rapid molecular test for organism identification may be performed using the [email or web address] Blood Culture Identification panel. This assay detects microbial DNA in a blood culture broth. This assay has been cleared by the [employer] Food and Drug Administration and its performance characteristics have been verified by the [facility]. Interpretive data was last revised on September 11, 2022. Elida Winsome Barks [employer] MICROBIOLOGY - GEN ERAL ORDERABLES Final Result Performing Organization Address City/[facility]/ZIP Co de Phone Number [facility] [address] [place] [address] * (ABNORMAL) POCT glucose (09/16/2024 7:33 AM FIELD CONTROL INSPECTOR) [facility] Glucose, POC 232(H) 70 - 199 mg/dL Comment: For Glucose values <35 mg/dl when Hematocrit is >60 mg/dl,the test may not accurately detect significant hypoglycemia,and testing in the Laboratory should be considered if clinically indicated. Blood 09/16/2024 7:33 AM FIELD CONTROL INSPECTOR 09/16/2024 7:33 AM FIELD CONTROL INSPECTOR Flo Villagran MD LAB POCT ORDERABLES - DEVICE Final Result [facility] [address] Department [place] [address] * (ABNORMAL) CBC with auto differential (09/16/2024 5:30 AM FIELD CONTROL INSPECTOR) [facility] WBC 5.4 3.8 - 9.9 K/cumm Hgb 8.6(L) 11.9 - 15.5 g/dL [facility] Hct 28.2(L) 35.6 - 45.5 % [facility] Plt 81(L) 150 - 400 K/cumm [facility] MPV 13.9(H) 9.1 - 12.3 fL [facility] RBC 3.01(L) 3.90 - 5.20 M/cumm [facility] MCV 93.7 81.3 - 96.4 fL [facility] MCH 28.6 27.1 - 33.3 pg [facility] MCHC 30.5(L) 32.3 - 35.7 g/dL [facility] RDW CV 14.9 11.1 - 14.9 % [facility] RDW SD 51.3(H) 35.7 - 48.1 fL [facility] NRBC abs 0.00 0.00 - 0.01 K/cumm [facility] Blood 09/16/2024 5:30 AM FIELD CONTROL INSPECTOR 09/16/2024 5:39 AM FIELD CONTROL INSPECTOR Flo Villagran MD LAB BLOOD ORDERABLES Final R esult [facility] [address] Department [place] [address] * (ABNORMAL) Manual Differential (09/16/2024 5:30 AM FIELD CONTROL INSPECTOR) Differential Manual Cells Counted 116 [facility] Neutrophil abs 4.4 1.5 - 6.5 K/cumm [facility] Imm gran abs 0.0 0.0 - 0.1 K/cumm [facility] Lymphocyte abs 0.6(L) 0.8 - 3.3 K/cumm [facility] Monocyte abs 0.3 0.2 - 0.8 K/cumm [facility] Eosinophil abs 0.0 0.0 - 0.5 K/cumm [facility] Neutrophil pct 81.0 % [facility] Comment: Interpretive Data Percent cell count reference ranges are not reported, since discordance with absolute values may lead to misinterpretation of CBC data. Current Interpretive Data was last revised on 2017. Lymphocyte pct 12.1 % [facility] Comment: Interpretive Data Percent cell count reference ranges are not reported, since discordance with absolute values may lead to misinterpretation of CBC data. Current Interpretive Data was last revised on 2017. Monocyte pct 6.0 % [facility] Comment: Interpretive Data Percent cell count reference ranges are not reported, since discordance with absolute values may lead to misinterpretation of CBC data. Current Interpretive Data was last revised on 2017. Eosinophil pct 0.9 % [facility] Comment: Interpretive Data Percent cell count reference ranges are not reported, since discordance with absolute values may lead to misinterpretation of CBC data. Current Interpretive Data was last revised on 2017. RBC morphology Present(A) [facility] Hypochromasia 3-7/HPF(A) [facility] Anisocytosis Slight(A) [facility] Microcytes 3-7/HPF(A) [facility] Morphology scrn See Comment [facility] Comment:PLT: Giant platelets present Blood 09/16/2024 5:30 AM FIELD CONTROL INSPECTOR 09/16/2024 5:39 AM FIELD CONTROL INSPECTOR Flo Villagran MD LAB BLOOD ORDERABLES Final R esult Performing Organization Address [facility] Co de Phone Number [facility] [address] [place] [address] * POCT glucose (09/16/2024 5:23 AM FIELD CONTROL INSPECTOR) [facility] Signature Glucose, POC 178 70 - 199 mg/dL Comment: For Glucose values <35 mg/dl when Hematocrit is >60 mg/dl,the test may not accurately detect significant hypoglycemia,and testing in the Laboratory should be considered if clinically indicated. Blood 09/16/2024 5:23 AM FIELD CONTROL INSPECTOR 09/16/2024 5:23 AM FIELD CONTROL INSPECTOR Flo Villagran MD LAB POCT ORDERABLES - DEVICE Final Result Performing Organization Address [facility] de Phone Number [facility] [address] Department [place] [address] * X-ray chest 1 view (09/16/2024 4:37 AM FIELD CONTROL INSPECTOR) Anatomical Region Laterality Modality Body, Chest N/A Computed Radiogr aphy 09/16/2024 7:29 AM FIELD CONTROL INSPECTOR Impressions 09/16/2024 7:29 AM FIELD CONTROL INSPECTOR Endotracheal tube with tip approximately 3.6 cm superior to jessenia. Gastric tube extends inferior to the [id number]-ev-[id number] the study, below the GE junction. There are heterogeneous left mid lung and bibasilar lung opacities appear not significantly changed from prior. There is no pneumothorax or definite pleural effusion. Heart and mediastinum are unchanged. Electronically signed by: Abeba Castellano M.D. Narrative 09/16/2024 7:29 AM FIELD CONTROL INSPECTOR EXAMINATION: 1 view chest radiograph COMPARISON: 09/15/2024 INDICATION: ET Tube For endotracheal tube position Procedure Note Abeba Castellano MD - 09/16/2024 EXAMINATION: 1 view chest radiograph COMPARISON: 09/15/2024 INDICATION: ET Tube For endotracheal tube position IMPRESSION: Endotracheal tube with tip approximately 3.6 cm superior to jessenia. Gastric tube extends inferior to the [id number] the study, below the GE junction. There are heterogeneous left mid lung and bibasilar lung opacities appear not significantly changed from prior. There is no pneumothorax or definite pleural effusion. Heart and mediastinum are unchanged. Electronically signed by: Abeba Castellano M.D. Flo Villagran MD IMG XR PROCEDURES Final Resu lt * (ABNORMAL) eGFR (09/16/2024 4:05 AM FIELD CONTROL INSPECTOR) eGFR 33(L) >=60 mL/min/1. 73 m2 Comment: [...] last reviewed 2021. Blood 09/16/2024 4:05 AM FIELD CONTROL INSPECTOR 09/16/2024 4:12 AM FIELD CONTROL INSPECTOR Flo Villagran MD LAB BLOOD ORDERABLES Final R esult [facility] [address] Department [place] [address] * Blood culture Blood (09/16/2024 4:05 AM FIELD CONTROL INSPECTOR) Report Final Report: No growth Blood 09/16/2024 4:05 AM FIELD CONTROL INSPECTOR 09/16/2024 4:38 AM FIELD CONTROL INSPECTOR Narrative [facility] - 09/21/2024 7:01 AM FIELD CONTROL INSPECTOR Interpretive Data 1. Blood cultures are incubated and monitored continuously for 5 days (120 hours). The first negative report is issued within 24 hours of receipt in the laboratory. 2. All positive cultures are resulted and called to physicians/care providers as soon as they are detected. 3. A rapid molecular test for organism identification may be performed using the [email or web address] Blood Culture Identification panel. This assay detects microbial DNA in a blood culture broth. This assay has been cleared by the [place] Food and Drug Administration and its performance characteristics have been verified by the [facility]. Interpretive data was last revised on September 11, 2022. Flo Villagran MD LAB MICROBIOLOGY - GENERAL O RDERABLES Final Result [facility] [address] Department [place] [address] * (ABNORMAL) Triglycerides (09/16/2024 4:05 AM FIELD CONTROL INSPECTOR) Triglycerides 876(H) <=149 mg/dL Comment: Interpretive Data [...] revised on 2018. Blood 09/16/2024 4:05 AM FIELD CONTROL INSPECTOR 09/16/2024 4:05 AM FIELD CONTROL INSPECTOR Flo Villagran MD LAB BLOOD ORDERABLES Final R esult Performing Organization Address City/[facility]/ZIP Co de Phone Number [facility] [address] Department of [employer] [place] [address] * Magnesium (09/16/2024 4:05 AM FIELD CONTROL INSPECTOR) [facility] Magnesium 2.2 1.4 - 2.5 mg/dL Blood 09/16/2024 4:05 AM FIELD CONTROL INSPECTOR 09/16/2024 4:12 AM FIELD CONTROL INSPECTOR Flo Villagran MD LAB BLOOD ORDERABLES Final R esult Performing Organization Address [facility] Co de Phone Number [facility] [address] [place] Department of [employer] [place] [address] * (ABNORMAL) Renal function panel (09/16/2024 4:05 AM FIELD CONTROL INSPECTOR) [facility] Sodium 139 135 - 145 mmol/L Potassium, pl 3.3 3.3 - 4.9 mmol/L [facility] Chloride 107 97 - 110 mmol/L [facility] CO2 19(L) 22 - 32 mmol/L [facility] Anion gap 13 2 - 15 mmol/L [facility] BUN 47(H) 6 - 25 mg/dL [facility] Creatinine 1.85(H) 0.60 - 1.10 mg/dL [facility] Glucose 137 70 - 199 mg/dL [facility] Comment: Interpretive Data Fasting glucose >/= 126 [...] 2022. Calcium 7.8(L) 8.5 - 10.3 mg/dL [facility] Phosphorus, pl 2.8 2.3 - 4.5 mg/dL [facility] Albumin 2.0(L) 3.5 - 5.0 g/dL [facility] Blood 09/16/2024 4:05 AM FIELD CONTROL INSPECTOR 09/16/2024 4:12 AM FIELD CONTROL INSPECTOR Flo Villagran MD LAB BLOOD ORDERABLES Final R esult Performing Organization Address [facility] Co de Phone Number [facility] [address] Department [place] [address] * POCT glucose (09/16/2024 3:45 AM FIELD CONTROL INSPECTOR) [facility] Signature Glucose, POC 137 70 - 199 mg/dL Comment: For Glucose values <35 mg/dl when Hematocrit is >60 mg/dl,the test may not accurately detect significant hypoglycemia,and testing in the Laboratory should be considered if clinically indicated. Blood 09/16/2024 3:45 AM FIELD CONTROL INSPECTOR 09/16/2024 3:45 AM FIELD CONTROL INSPECTOR Flo Villagran MD LAB POCT ORDERABLES - DEVICE Final Result Performing Organization Address [facility] Co de Phone Number [facility] [address] Department [place] [address] * MRI Brain WO Contrast (09/16/2024 1:48 AM FIELD CONTROL INSPECTOR) Anatomical Region Laterality Modality Head and Neck N/A Magnetic Resonan ce 09/15/2024 10:4 0 PM FIELD CONTROL INSPECTOR Impressions 09/16/2024 12:11 PM FIELD CONTROL INSPECTOR No acute intracranial abnormality seen given motion limitations. For the purposes of quality control technician, this study was initially interpreted by teleradiology. There is no significant discrepancy. Dictated by: Hugh Zelaya M.D. The radiology attending physician has personally reviewed this study, and had reviewed and/or edited this written report and agrees with it. Electronically signed by: Matthew Alonso MD, PHD Narrative 09/16/2024 12:11 PM FIELD CONTROL INSPECTOR EXAMINATION: Magnetic resonance imaging (MRI) of the [...] motion limitations. For the purposes of quality control technician, this study was initially interpreted by teleradiology. There is no significant discrepancy. Dictated by: Hugh Zelaya M.D. The radiology attending physician has personally reviewed this study, and had reviewed and/or edited this written report and agrees with it. Electronically signed by: Matthew Alonso MD, PHD Flo Villagran MD IMG MRI PROCEDURES Final Res ult * POCT glucose (09/16/2024 1:06 AM FIELD CONTROL INSPECTOR) Glucose, POC 156 70 - 199 mg/dL Comment: For Glucose values <35 mg/dl when Hematocrit is >60 mg/dl,the test may not accurately detect significant hypoglycemia,and testing in the Laboratory should be considered if clinically indicated. Blood 09/16/2024 1:06 AM FIELD CONTROL INSPECTOR 09/16/2024 1:06 AM FIELD CONTROL INSPECTOR Flo Villagran MD LAB POCT ORDERABLES - DEVICE Final Result Performing Organization Address [facility] Co de Phone Number [facility] [address] [employer] [place], [place] [id number] * POCT glucose (09/16/2024 12:01 AM FIELD CONTROL INSPECTOR) Glucose, POC 155 70 - 199 mg/dL Comment: For Glucose values <35 mg/dl when Hematocrit is >60 mg/dl,the test may not accurately detect significant hypoglycemia,and testing in the Laboratory should be considered if clinically indicated. Blood 09/16/2024 12:0 1 AM FIELD CONTROL INSPECTOR 09/16/2024 12:01 AM FIELD CONTROL INSPECTOR Flo Villagran MD LAB POCT ORDERABLES - DEVICE Final Result Performing Organization Address [facility] Co de Phone Number [facility] [address] [facility] [employer] [place] [address] * POCT glucose (09/15/2024 9:09 PM FIELD CONTROL INSPECTOR) Glucose, POC 166 70 - 199 mg/dL Comment: For Glucose values <35 mg/dl when Hematocrit is >60 mg/dl,the test may not accurately detect significant hypoglycemia,and testing in the Laboratory should be considered if clinically indicated. Blood 09/15/2024 9:09 PM FIELD CONTROL INSPECTOR 09/15/2024 9:09 PM FIELD CONTROL INSPECTOR Flo Villagran MD LAB POCT ORDERABLES - DEVICE Final Result Performing Organization Address [facility] Co de Phone Number [facility] [address] [facility] [employer] [place] [address] * POCT glucose (09/15/2024 7:41 PM FIELD CONTROL INSPECTOR) Glucose, POC 140 70 - 199 mg/dL Comment: For Glucose values <35 mg/dl when Hematocrit is >60 mg/dl,the test may not accurately detect significant hypoglycemia,and testing in the Laboratory should be considered if clinically indicated. Blood 09/15/2024 7:41 PM FIELD CONTROL INSPECTOR 09/15/2024 7:41 PM FIELD CONTROL INSPECTOR Flo Villagran MD LAB POCT ORDERABLES - DEVICE Final Result Performing Organization Address [facility] de Phone Number [facility] [address] [facility] [employer] [place] [address] * POCT glucose (09/15/2024 5:12 PM FIELD CONTROL INSPECTOR) Glucose, POC 140 70 - 199 mg/dL Comment: For Glucose values <35 mg/dl when Hematocrit is >60 mg/dl,the test may not accurately detect significant hypoglycemia,and testing in the Laboratory should be considered if clinically indicated. Blood 09/15/2024 5:12 PM FIELD CONTROL INSPECTOR 09/15/2024 5:12 PM FIELD CONTROL INSPECTOR Flo Villagran MD LAB POCT ORDERABLES - DEVICE Final Result Performing Organization Address [facility] Co de Phone Number [facility] [address] Department of [employer] [place] [address] * POCT glucose (09/15/2024 3:05 PM FIELD CONTROL INSPECTOR) Glucose, POC 117 70 - 199 mg/dL Comment: For Glucose values <35 mg/dl when Hematocrit is >60 mg/dl,the test may not accurately detect significant hypoglycemia,and testing in the Laboratory should be considered if clinically indicated. Blood 09/15/2024 3:05 PM FIELD CONTROL INSPECTOR 09/15/2024 3:05 PM FIELD CONTROL INSPECTOR Flo Villagran MD LAB POCT ORDERABLES - DEVICE Final Result Performing Organization Address [facility]/ZIP Co de Phone Number [facility] [address] Department [employer] [place] [address] * (ABNORMAL) Aerobic culture and gram stain Sputum Sputum (09/15/2024 1:57 PM FIELD CONTROL INSPECTOR) Direct Specimen Exam Stain: Moderate polymorphonuclear leukocytes seen. Many Gram Positive Cocci Report Final Report: Heavy growth of: Staphylococcus aureus, methicillin susceptible Light growth normal sukhdev (.) [facility] Organism STAPHYLOCOCCUS AUREUS, METHICILLIN SUSCEPTIBLE [facility] Sputum (Sputum) 09/15/2024 1 :57 PM FIELD CONTROL INSPECTOR 09/15/2024 2:10 PM FIELD CONTROL INSPECTOR Narrative Organism Antibiotic Method Susceptibility Staphylococcus aureus, [...] O RDERABLES Final Result Performing Organization Address [facility]/ZIP Co de Phone Number [facility] [address] Department [place] [address] * TRANSESOPHAGEAL ECHO (DEMI) W DOPPLER/CF WO CONTRAST (09/15/2024 1:43 PM FIELD CONTROL INSPECTOR) LV EF 55-60 % CONS SCIMAGE Anatomical Region Laterality Modality Ultrasound 09/15/2024 12:4 5 PM FIELD CONTROL INSPECTOR Narrative 09/15/2024 5:05 PM FIELD CONTROL INSPECTOR [facility] [address] [place] [address] TRANSESOPHAGEAL ECHOCARDIOGRAM Patient Name: BROOKE MARSHALL : 1975 (48y 8m) Gender: F Study Date: 09/15/2024 12:45:30 PM Ht(Inch): 65 Wt(Lb): 202.01 BSA: 2.05 Research Chemical 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 Electronically Signed By: Nilson Dubose [facility] Card 09/15/2024 5:05:10 PM FIELD CONTROL INSPECTOR Procedure Note Nilson Dubose MD - 09/15/2024 [place] [id number] [place] [address] TRANSESOPHAGEAL ECHOCARDIOGRAM Patient Name: BROOKE MARSHALL : 1975 (48y 8m) Gender: F Study Date: 09/15/2024 12:45:30 PM Ht(Inch): 65 Wt(Lb): 202.01 BSA: 2.05 Research Chemical Engineer: Location: [id number] Order Provider: NILSON DUBOSE BMI: 33.61 BP: [...] intracardiac vegetation. Electronically Signed By: Nilson Dubose [facility] Card 09/15/2024 5:05:10 PM FIELD CONTROL INSPECTOR us Nilson Dubose MD CV ECHO PROCEDURES Final Result * POCT glucose (09/15/2024 1:05 PM FIELD CONTROL INSPECTOR) [facility] Glucose, POC 151 70 - 199 mg/dL Comment: For Glucose values <35 mg/dl when Hematocrit is >60 mg/dl,the test may not accurately detect significant hypoglycemia,and testing in the Laboratory should be considered if clinically indicated. Blood 09/15/2024 1:05 PM FIELD CONTROL INSPECTOR 09/15/2024 1:05 PM FIELD CONTROL INSPECTOR us Flo Villagran MD LAB POCT ORDERABLES - DEVICE Final Result [facility] [address] Department [place] [address] * X-ray chest 1 view (09/15/2024 11:41 AM FIELD CONTROL INSPECTOR) Anatomical Region Laterality Modality Body, Chest N/A Computed Radiogr aphy 09/15/2024 12:0 0 PM FIELD CONTROL INSPECTOR Addenda Addendum by Cira Mancilla MD on 09/15/2024 1:17 PM FIELD CONTROL INSPECTOR Communicated to Dr. Villagran who confirmed that the tube has been pulled back. Dr. Mancilla on 09/15/2024 at 1:15pm. Electronically signed by: Cira Mancilla M.D. Impressions 09/15/2024 12:00 PM FIELD CONTROL INSPECTOR FINDINGS and IMPRESSION: Endotracheal tube terminates in the right bronchus, recommend withdrawal by about 6 cm. Feeding tube courses below the imaged [id number], past the GE junction. Increased airspace opacities in the left lung and increased prominence of right upper perihilar airspace opacities may represent progressive pneumonia, to be correlated clinically. Electronically signed by: Cira Mancilla M.D. Narrative 09/15/2024 12:00 PM FIELD CONTROL INSPECTOR EXAMINATION: XR CHEST 1 VIEW COMPARISON: 09/15/2024 HISTORY: For endotracheal tube position Procedure Note Cira Mancilla MD - 09/15/2024 EXAMINATION: XR CHEST 1 VIEW COMPARISON: 09/15/2024 HISTORY: For endotracheal tube position IMPRESSION: FINDINGS and IMPRESSION: Endotracheal tube terminates in the right bronchus, recommend withdrawal by about 6 cm. Feeding tube courses below the imaged [id number], past the GE junction. Increased airspace opacities in the left lung and increased prominence of right upper perihilar airspace opacities may represent progressive pneumonia, to be correlated clinically. Electronically signed by: Cira Mancilla M.D. Flo Villagran MD IMG XR PROCEDURES Edited Res ult - Final * (ABNORMAL) Blood gas, arterial (09/15/2024 11:34 AM FIELD CONTROL INSPECTOR) pH, Art 7.32(L) 7.35 - 7.45 PCO2, Arterial 48(H) 35 - 45 mmHg [facility] PO2, Arterial 264(H) 83 - 108 mmHg [facility] HCO3 Art (Calculated) 25 20 - 30 mmol/L [facility] BE, art -2 mmol/L [facility] Comment: Interpretive Data No Reference Range Established Current Interpretive Data was last revised on 2017 O2 Sat Art (Calculated) 100(H) 94 - 98 % [facility] Blood 09/15/2024 11:3 4 AM FIELD CONTROL INSPECTOR 09/15/2024 11:36 AM FIELD CONTROL INSPECTOR Result [facility] Flo Villagran MD LAB BLOOD ORDERABLES Final R esult Performing Organization Address [facility] Co de Phone Number [facility] [address] [place] [address] * POCT glucose (09/15/2024 11:07 AM FIELD CONTROL INSPECTOR) Glucose, POC 183 70 - 199 mg/dL Comment: For Glucose values <35 mg/dl when Hematocrit is >60 mg/dl,the test may not accurately detect significant hypoglycemia,and testing in the Laboratory should be considered if clinically indicated. Blood 09/15/2024 11:0 7 AM FIELD CONTROL INSPECTOR 09/15/2024 11:07 AM FIELD CONTROL INSPECTOR Flo Villagran MD LAB POCT ORDERABLES - DEVICE Final Result Performing Organization Address City/[facility]/ZIP Co de Phone Number [facility] [address] [place] [address] * INTUBATION (09/15/2024 10:31 AM FIELD CONTROL INSPECTOR) Narrative Flo Villagran MD - 09/15/2024 10:31 AM FIELD CONTROL INSPECTOR Flo Villagran MD 09/15/2024 11:11 AM Intubation [...] * (ABNORMAL) POCT glucose (09/15/2024 9:16 AM FIELD CONTROL INSPECTOR) Glucose, POC 200(H) 70 - 199 mg/dL Comment: For Glucose values <35 mg/dl when Hematocrit is >60 mg/dl,the test may not accurately detect significant hypoglycemia,and testing in the Laboratory should be considered if clinically indicated. Blood 09/15/2024 9:16 AM FIELD CONTROL INSPECTOR 09/15/2024 9:16 AM FIELD CONTROL INSPECTOR Flo Villagran MD LAB POCT ORDERABLES - DEVICE Final Result [facility] [address] Department [place] [address] * POCT glucose (09/15/2024 7:06 AM FIELD CONTROL INSPECTOR) Glucose, POC 186 70 - 199 mg/dL Comment: For Glucose values <35 mg/dl when Hematocrit is >60 mg/dl,the test may not accurately detect significant hypoglycemia,and testing in the Laboratory should be considered if clinically indicated. Blood 09/15/2024 7:06 AM FIELD CONTROL INSPECTOR 09/15/2024 7:06 AM FIELD CONTROL INSPECTOR us Flo Villagran MD LAB POCT ORDERABLES - DEVICE Final Result Performing Organization Address [facility] de Phone Number [facility] [address] [facility] [employer] [place] [address] * POCT glucose (09/15/2024 5:27 AM FIELD CONTROL INSPECTOR) Glucose, POC 187 70 - 199 mg/dL Comment: For Glucose values <35 mg/dl when Hematocrit is >60 mg/dl,the test may not accurately detect significant hypoglycemia,and testing in the Laboratory should be considered if clinically indicated. Blood 09/15/2024 5:27 AM FIELD CONTROL INSPECTOR 09/15/2024 5:27 AM FIELD CONTROL INSPECTOR Flo Villagran MD LAB POCT ORDERABLES - DEVICE Final Result Performing Organization Address [facility] de Phone Number [facility] [address] [facility] [employer] [place], [place] [phone] * POCT glucose (09/15/2024 3:51 AM FIELD CONTROL INSPECTOR) Glucose, POC 189 70 - 199 mg/dL Comment: For Glucose values <35 mg/dl when Hematocrit is >60 mg/dl,the test may not accurately detect significant hypoglycemia,and testing in the Laboratory should be considered if clinically indicated. Blood 09/15/2024 3:51 AM FIELD CONTROL INSPECTOR 09/15/2024 3:51 AM FIELD CONTROL INSPECTOR Flo Villagran MD LAB POCT ORDERABLES - DEVICE Final Result Performing Organization Address [facility] de Phone Number [facility] [address] [facility] [employer] [place], [place] [id number] * (ABNORMAL) aPTT (09/15/2024 3:48 AM FIELD CONTROL INSPECTOR) aPTT 49(H) 28 - 38 sec Comment: Interpretive Data Heparin therapeutic range: 66.0 - 100.0 seconds. Range based on correlation with therapeutic heparin activity range of 0.3 - 0.7 Units/mL. Current interpretive data was last revised on 2023. Blood 09/15/2024 3:48 AM FIELD CONTROL INSPECTOR 09/15/2024 3:52 AM FIELD CONTROL INSPECTOR us Abeba Ash MD LAB BLOOD ORDERABLES Final R esult [facility] [address] [place] Department [place] [address] * XR Chest 1 View (09/15/2024 3:41 AM FIELD CONTROL INSPECTOR) Anatomical Region Laterality Modality Body, Chest N/A Computed Radiogr aphy 09/15/2024 7:33 AM FIELD CONTROL INSPECTOR Impressions 09/15/2024 7:33 AM FIELD CONTROL INSPECTOR Comparison is made to 09/14/2024. A nasogastric tube tip is located with diaphragm, not included [id number]. There is slightly improving aeration within the left midlung and lung base which may represent improving pneumonia. The right mid to upper lung there is a persistent area of nodular consolidation which is favored to be infectious as well. No pleural effusion. No pneumothorax. Stable heart size. Electronically signed by: Ruiz Coles M.D. Narrative 09/15/2024 7:33 AM FIELD CONTROL INSPECTOR Examination: Chest 1 view Procedure Note Ruiz Coles MD - 09/15/2024 Examination: Chest 1 view IMPRESSION: Comparison is made to 09/14/2024. A nasogastric tube tip is located with diaphragm, not included [id number]. There is slightly improving aeration within the [...] lt * (ABNORMAL) eGFR (09/15/2024 1:50 AM FIELD CONTROL INSPECTOR) [facility] eGFR 40(L) >=60 mL/min/1. 73 m2 [...] last reviewed 2021. Blood 09/15/2024 1:50 AM FIELD CONTROL INSPECTOR 09/15/2024 2:27 AM FIELD CONTROL INSPECTOR us Flo Villagran MD LAB BLOOD ORDERABLES Final R esult [facility] [address] Department [place] [address] * (ABNORMAL) CBC without differential (09/15/2024 1:50 AM FIELD CONTROL INSPECTOR) [facility] WBC 5.0 3.8 - 9.9 K/cumm Hgb 9.9(L) 11.9 - 15.5 g/dL [facility] Hct 31.5(L) 35.6 - 45.5 % [facility] Plt 67(L) 150 - 400 K/cumm [facility] Comment:Automated count conf irmed by smear review. MPV 13.3(H) 9.1 - 12.3 fL [facility] RBC 3.39(L) 3.90 - 5.20 M/cumm [facility] MCV 92.9 81.3 - 96.4 fL [facility] MCH 29.2 27.1 - 33.3 pg [facility] MCHC 31.4(L) 32.3 - 35.7 g/dL [facility] RDW CV 15.0(H) 11.1 - 14.9 % [facility] RDW SD 51.5(H) 35.7 - 48.1 fL [facility] NRBC abs 0.00 0.00 - 0.01 K/cumm [facility] Blood 09/15/2024 1:50 AM FIELD CONTROL INSPECTOR 09/15/2024 2:27 AM FIELD CONTROL INSPECTOR Flo Villagran MD LAB BLOOD ORDERABLES Final R esult Performing Organization Address [facility] Co de Phone Number [facility] [address] [facility] [employer] [place] [address] * (ABNORMAL) Phosphorus (09/15/2024 1:50 AM FIELD CONTROL INSPECTOR) Phosphorus, pl 1.7(L) 2.3 - 4.5 mg/dL Blood 09/15/2024 1:50 AM FIELD CONTROL INSPECTOR 09/15/2024 2:27 AM FIELD CONTROL INSPECTOR Flo Villagran MD LAB BLOOD ORDERABLES Final R esult Performing Organization Address [facility] Co de Phone Number [facility] [address] [facility] [employer] [place], [place] [id number] * Magnesium (09/15/2024 1:50 AM FIELD CONTROL INSPECTOR) Magnesium 2.4 1.4 - 2.5 mg/dL Comment:Reviewed Blood 09/15/2024 1:50 AM FIELD CONTROL INSPECTOR 09/15/2024 2:27 AM FIELD CONTROL INSPECTOR Flo Villagran MD LAB BLOOD ORDERABLES Final R esult Performing Organization Address City/[facility] Co de Phone Number [facility] [address] Department [employer] [place], [place] [phone] * Bilirubin, direct (09/15/2024 1:50 AM FIELD CONTROL INSPECTOR) Pathologist [facility] Bilirubin, direct 0.3 0.1 - 0.3 mg/dL Blood 09/15/2024 1:50 AM FIELD CONTROL INSPECTOR 09/15/2024 2:27 AM FIELD CONTROL INSPECTOR Flo Villagran MD LAB BLOOD ORDERABLES Final R esult [facility] [address] Department [place] [address] * (ABNORMAL) Comprehensive metabolic panel (09/15/2024 1:50 AM FIELD CONTROL INSPECTOR) Pathologist [facility] Sodium 147(H) 135 - 145 mmol/L Potassium, pl 3.1(L) 3.3 - 4.9 mmol/L [facility] Chloride 110 97 - 110 mmol/L [facility] CO2 24 22 - 32 mmol/L [facility] Anion gap 13 2 - 15 mmol/L [facility] BUN 44(H) 6 - 25 mg/dL [facility] Creatinine 1.56(H) 0.60 - 1.10 mg/dL [facility] Glucose 179 70 - 199 mg/dL [facility] Comment: Interpretive Data Fasting glucose >/= 126 [...] 2022. Calcium 8.5 8.5 - 10.3 mg/dL [facility] Bilirubin, total 0.5 0.1 - 1.2 mg/dL [facility] Protein, pl 5.6(L) 6.5 - 8.5 g/dL [facility] Albumin 2.4(L) 3.5 - 5.0 g/dL [facility] Alk phos 77 40 - 130 Units/L [facility] ALT 23 7 - 45 Units/L [facility] AST 35 10 - 45 Units/L [facility] Blood 09/15/2024 1:50 AM FIELD CONTROL INSPECTOR 09/15/2024 2:27 AM FIELD CONTROL INSPECTOR Flo Villagran MD LAB BLOOD ORDERABLES Final R esult Performing Organization Address [facility] de Phone Number [facility] [address] Department [place] [address] * POCT glucose (09/15/2024 12:53 AM FIELD CONTROL INSPECTOR) Glucose, POC 166 70 - 199 mg/dL Comment: For Glucose values <35 mg/dl when Hematocrit is >60 mg/dl,the test may not accurately detect significant hypoglycemia,and testing in the Laboratory should be considered if clinically indicated. Blood 09/15/2024 12:5 3 AM FIELD CONTROL INSPECTOR 09/15/2024 12:53 AM FIELD CONTROL INSPECTOR Flo Villagran MD LAB POCT ORDERABLES - DEVICE Final Result Performing Organization Address [facility] de Phone Number [facility] [address] Department [place] [address] * POCT glucose (09/14/2024 11:15 PM FIELD CONTROL INSPECTOR) Glucose, POC 178 70 - 199 mg/dL Comment: For Glucose values <35 mg/dl when Hematocrit is >60 mg/dl,the test may not accurately detect significant hypoglycemia,and testing in the Laboratory should be considered if clinically indicated. Blood 09/14/2024 11:1 5 PM FIELD CONTROL INSPECTOR 09/14/2024 11:15 PM FIELD CONTROL INSPECTOR Flo Villagran MD LAB POCT ORDERABLES - DEVICE Final Result Performing Organization Address [facility] de Phone Number [facility] [address] Department [place] [address] * (ABNORMAL) aPTT (09/14/2024 9:19 PM FIELD CONTROL INSPECTOR) aPTT 57(H) 28 - 38 sec Comment: Interpretive Data Heparin therapeutic range: 66.0 - 100.0 seconds. Range based on correlation with therapeutic heparin activity range of 0.3 - 0.7 Units/mL. Current interpretive data was last revised on 2023. Blood 09/14/2024 9:19 PM FIELD CONTROL INSPECTOR 09/14/2024 9:19 PM FIELD CONTROL INSPECTOR Flo Villagran MD LAB BLOOD ORDERABLES Final R esult Performing Organization Address [facility] Co de Phone Number [facility] [address] [place] [address] * POCT glucose (09/14/2024 9:16 PM FIELD CONTROL INSPECTOR) Glucose, POC 162 70 - 199 mg/dL Comment: For Glucose values <35 mg/dl when Hematocrit is >60 mg/dl,the test may not accurately detect significant hypoglycemia,and testing in the Laboratory should be considered if clinically indicated. Blood 09/14/2024 9:16 PM FIELD CONTROL INSPECTOR 09/14/2024 9:16 PM FIELD CONTROL INSPECTOR Flo Villagran MD LAB POCT ORDERABLES - DEVICE Final Result Performing Organization Address City/[facility] Co de Phone Number [facility] [address] [place] [address] * POCT glucose (09/14/2024 7:20 PM FIELD CONTROL INSPECTOR) Glucose, POC 171 70 - 199 mg/dL Comment: For Glucose values <35 mg/dl when Hematocrit is >60 mg/dl,the test may not accurately detect significant hypoglycemia,and testing in the Laboratory should be considered if clinically indicated. Blood 09/14/2024 7:20 PM FIELD CONTROL INSPECTOR 09/14/2024 7:20 PM FIELD CONTROL INSPECTOR Flo Villagran MD LAB POCT ORDERABLES - DEVICE Final Result Performing Organization Address [facility] Co de Phone Number [facility] [address] [facility] [employer] [place] [address] * POCT glucose (09/14/2024 6:16 PM FIELD CONTROL INSPECTOR) Glucose, POC 183 70 - 199 mg/dL Comment: For Glucose values <35 mg/dl when Hematocrit is >60 mg/dl,the test may not accurately detect significant hypoglycemia,and testing in the Laboratory should be considered if clinically indicated. Blood 09/14/2024 6:16 PM FIELD CONTROL INSPECTOR 09/14/2024 6:16 PM FIELD CONTROL INSPECTOR Flo Villagran MD LAB POCT ORDERABLES - DEVICE Final Result Performing Organization Address [facility] de Phone Number [facility] [address] [facility] [employer] [place] [address] * POCT glucose (09/14/2024 4:55 PM FIELD CONTROL INSPECTOR) Glucose, POC 186 70 - 199 mg/dL Comment: For Glucose values <35 mg/dl when Hematocrit is >60 mg/dl,the test may not accurately detect significant hypoglycemia,and testing in the Laboratory should be considered if clinically indicated. Blood 09/14/2024 4:55 PM FIELD CONTROL INSPECTOR 09/14/2024 4:55 PM FIELD CONTROL INSPECTOR Flo Villagran MD LAB POCT ORDERABLES - DEVICE Final Result Performing Organization Address [facility] Co de Phone Number [facility] [address] [facility] [employer] [place], [place] [phone] * POCT glucose (09/14/2024 4:10 PM FIELD CONTROL INSPECTOR) Glucose, POC 179 70 - 199 mg/dL Comment: For Glucose values <35 mg/dl when Hematocrit is >60 mg/dl,the test may not accurately detect significant hypoglycemia,and testing in the Laboratory should be considered if clinically indicated. Blood 09/14/2024 4:10 PM FIELD CONTROL INSPECTOR 09/14/2024 4:10 PM FIELD CONTROL INSPECTOR Flo Villagran MD LAB POCT ORDERABLES - DEVICE Final Result Performing Organization Address [facility] Co de Phone Number [facility] [address] Department [place] [address] * POCT glucose (09/14/2024 3:03 PM FIELD CONTROL INSPECTOR) Glucose, POC 179 70 - 199 mg/dL Comment: For Glucose values <35 mg/dl when Hematocrit is >60 mg/dl,the test may not accurately detect significant hypoglycemia,and testing in the Laboratory should be considered if clinically indicated. Blood 09/14/2024 3:03 PM FIELD CONTROL INSPECTOR 09/14/2024 3:03 PM FIELD CONTROL INSPECTOR Flo Villagran MD LAB POCT ORDERABLES - DEVICE Final Result Performing Organization Address [facility] Co de Phone Number [facility] [address] Department of [employer] [place] [address] * (ABNORMAL) eGFR (09/14/2024 1:05 PM FIELD CONTROL INSPECTOR) eGFR 41(L) >=60 mL/min/1. 73 m2 Comment: [...] last reviewed 2021. Blood 09/14/2024 1:05 PM FIELD CONTROL INSPECTOR 09/14/2024 1:20 PM FIELD CONTROL INSPECTOR Flo Villagran MD LAB BLOOD ORDERABLES Final R esult Performing Organization Address [facility] Co de Phone Number [facility] [address] [facility] [employer] [place], [place] [phone] * (ABNORMAL) aPTT (09/14/2024 1:05 PM FIELD CONTROL INSPECTOR) aPTT 112(H) 28 - 38 sec Comment: Interpretive Data Heparin therapeutic range: 66.0 - 100.0 seconds. Range based on correlation with therapeutic heparin activity range of 0.3 - 0.7 Units/mL. Current interpretive data was last revised on 2023. Blood 09/14/2024 1:05 PM FIELD CONTROL INSPECTOR 09/14/2024 1:19 PM FIELD CONTROL INSPECTOR Flo Villagran MD LAB BLOOD ORDERABLES Final R esult Performing Organization Address [facility] de Phone Number [facility] [address] [facility] [employer] [place] [address] * (ABNORMAL) Renal function panel (09/14/2024 1:05 PM FIELD CONTROL INSPECTOR) Sodium 152(H) 135 - 145 mmol/L Potassium, pl 3.3 3.3 - 4.9 mmol/L [facility] Chloride 115(H) 97 - 110 mmol/L [facility] CO2 25 22 - 32 mmol/L [facility] Anion gap 12 2 - 15 mmol/L [facility] BUN 45(H) 6 - 25 mg/dL [facility] Creatinine 1.54(H) 0.60 - 1.10 mg/dL [facility] Glucose 177 70 - 199 mg/dL [facility] Comment: Interpretive Data Fasting glucose >/= 126 [...] 2022. Calcium 8.8 8.5 - 10.3 mg/dL [facility] Phosphorus, pl 2.6 2.3 - 4.5 mg/dL [facility] Albumin 2.5(L) 3.5 - 5.0 g/dL [facility] Blood 09/14/2024 1:05 PM FIELD CONTROL INSPECTOR 09/14/2024 1:20 PM FIELD CONTROL INSPECTOR Flo Villagran MD LAB BLOOD ORDERABLES Final R esult Performing Organization Address [facility] Co de Phone Number [facility] [address] [place] [address] * POCT glucose (09/14/2024 12:55 PM FIELD CONTROL INSPECTOR) [facility] Glucose, POC 168 70 - 199 mg/dL Comment: For Glucose values <35 mg/dl when Hematocrit is >60 mg/dl,the test may not accurately detect significant hypoglycemia,and testing in the Laboratory should be considered if clinically indicated. Blood 09/14/2024 12:5 5 PM FIELD CONTROL INSPECTOR 09/14/2024 12:55 PM FIELD CONTROL INSPECTOR Flo Villagran MD LAB POCT ORDERABLES - DEVICE Final Result [facility] [address] Department [employer] [place] [address] * POCT glucose (09/14/2024 12:01 PM FIELD CONTROL INSPECTOR) Glucose, POC 170 70 - 199 mg/dL Comment: For Glucose values <35 mg/dl when Hematocrit is >60 mg/dl,the test may not accurately detect significant hypoglycemia,and testing in the Laboratory should be considered if clinically indicated. Blood 09/14/2024 12:0 1 PM FIELD CONTROL INSPECTOR 09/14/2024 12:01 PM FIELD CONTROL INSPECTOR Flo Villagran MD LAB POCT ORDERABLES - DEVICE Final Result Performing Organization Address [facility] Co de Phone Number [facility] [address] Department [place] [address] * POCT glucose (09/14/2024 11:05 AM FIELD CONTROL INSPECTOR) Glucose, POC 188 70 - 199 mg/dL Comment: For Glucose values <35 mg/dl when Hematocrit is >60 mg/dl,the test may not accurately detect significant hypoglycemia,and testing in the Laboratory should be considered if clinically indicated. Blood 09/14/2024 11:0 5 AM FIELD CONTROL INSPECTOR 09/14/2024 11:05 AM FIELD CONTROL INSPECTOR Flo Villagran MD LAB POCT ORDERABLES - DEVICE Final Result Performing Organization Address [facility] de Phone Number [facility] [address] Department [place] [address] * POCT glucose (09/14/2024 10:04 AM FIELD CONTROL INSPECTOR) Glucose, POC 195 70 - 199 mg/dL Comment: For Glucose values <35 mg/dl when Hematocrit is >60 mg/dl,the test may not accurately detect significant hypoglycemia,and testing in the Laboratory should be considered if clinically indicated. Blood 09/14/2024 10:0 4 AM FIELD CONTROL INSPECTOR 09/14/2024 10:04 AM FIELD CONTROL INSPECTOR Flo Villagran MD LAB POCT ORDERABLES - DEVICE Final Result Performing Organization Address [facility] Co de Phone Number [facility] [address] Department [place] [address] * (ABNORMAL) Blood culture Blood (09/14/2024 9:42 AM FIELD CONTROL INSPECTOR) Direct Specimen Exam Stain: Gram Positive Cocci in clusters Test result called to and read back by Ana Maria Grier RN on 09/15/2024 05:37:49 by MARCELL. Report Final Report: Staphylococcus aureus, methicillin susceptible Susceptibility reported on this organism on previous culture [id number] (.) [facility] Organism STAPHYLOCOCCUS AUREUS, METHICILLIN SUSCEPTIBLE [facility] Blood 09/14/2024 9:42 AM FIELD CONTROL INSPECTOR 09/14/2024 9:50 AM FIELD CONTROL INSPECTOR Narrative [facility] - 09/16/2024 10:13 AM FIELD CONTROL INSPECTOR From a different site than #1. Interpretive [...] organism identification may be performed using the [email or web address] Blood Culture Identification panel. This assay detects microbial DNA in a blood culture broth. This assay has been cleared by the [place] Food and Drug Administration and its performance characteristics have been verified by the [facility]. Interpretive data was last revised on September 11, 2022. Flo Villagran MD LAB MICROBIOLOGY - GENERAL O RDERABLES Final Result [facility] [address] Department [place] [address] * Blood culture Blood (09/14/2024 9:42 AM FIELD CONTROL INSPECTOR) Report Final Report: No growth Blood 09/14/2024 9:42 AM FIELD CONTROL INSPECTOR 09/14/2024 12:44 PM FIELD CONTROL INSPECTOR Narrative [facility] - 09/19/2024 1:00 PM FIELD CONTROL INSPECTOR Interpretive Data 1. Blood cultures are incubated and monitored continuously for 5 days (120 hours). The first negative report is issued within 24 hours of receipt in the laboratory. 2. All positive cultures are resulted and called to physicians/care providers as soon as they are detected. 3. A rapid molecular test for organism identification may be performed using the [email or web address] Blood Culture Identification panel. This assay detects microbial DNA in a blood culture broth. This assay has been cleared by the [place] Food and Drug Administration and its performance characteristics have been verified by the [facility]. Interpretive data was last revised on September 11, 2022. Flo Villagran MD LAB MICROBIOLOGY - GENERAL O RDERABLES Final Result Performing Organization Address City/[facility] Co de Phone Number [facility] [address] Department [place] [address] * (ABNORMAL) POCT glucose (09/14/2024 8:56 AM FIELD CONTROL INSPECTOR) Pathologist [facility] Glucose, POC 228(H) 70 - 199 mg/dL Comment: For Glucose values <35 mg/dl when Hematocrit is >60 mg/dl,the test may not accurately detect significant hypoglycemia,and testing in the Laboratory should be considered if clinically indicated. Blood 09/14/2024 8:56 AM FIELD CONTROL INSPECTOR 09/14/2024 8:56 AM FIELD CONTROL INSPECTOR Flo Villagran MD LAB POCT ORDERABLES - DEVICE Final Result Performing Organization Address [facility]/ZIP Co de Phone Number [facility] [address] Department [place] [address] * (ABNORMAL) Blood gas, arterial (09/14/2024 8:08 AM FIELD CONTROL INSPECTOR) Pathologist [facility] pH, Art 7.34(L) 7.35 - 7.45 PCO2, Arterial 45 35 - 45 mmHg [facility] PO2, Arterial 79(L) 83 - 108 mmHg [facility] HCO3 Art (Calculated) 24 20 - 30 mmol/L [facility] BE, art -2 mmol/L [facility] Comment: Interpretive Data No Reference Range Established Current Interpretive Data was last revised on 2017 O2 Sat Art (Calculated) 95 94 - 98 % [facility] Blood 09/14/2024 8:08 AM FIELD CONTROL INSPECTOR 09/14/2024 8:11 AM FIELD CONTROL INSPECTOR Flo Villagran MD LAB BLOOD ORDERABLES Final R esult Performing Organization Address [facility] de Phone Number [facility] [address] Department of [employer] [place], [place] [id number] * (ABNORMAL) POCT glucose (09/14/2024 7:50 AM FIELD CONTROL INSPECTOR) Glucose, POC 235(H) 70 - 199 mg/dL Comment: For Glucose values <35 mg/dl when Hematocrit is >60 mg/dl,the test may not accurately detect significant hypoglycemia,and testing in the Laboratory should be considered if clinically indicated. Blood 09/14/2024 7:50 AM FIELD CONTROL INSPECTOR 09/14/2024 7:50 AM FIELD CONTROL INSPECTOR Flo Villagran MD LAB POCT ORDERABLES - DEVICE Final Result Performing Organization Address [facility] de Phone Number [facility] [address] Department of [employer] [place] [address] * (ABNORMAL) aPTT (09/14/2024 6:06 AM FIELD CONTROL INSPECTOR) aPTT >150(C) 28 - 38 sec Comment: Critical result called to and read back by Tatiana Sutton (RN) on 09/14/2024 07:20:52 FIELD CONTROL INSPECTOR to [id number]. Specimen integrity checked. No clot Interpretive Data Heparin therapeutic range: 66.0 - 100.0 seconds. Range based on correlation with therapeutic heparin activity range of 0.3 - 0.7 Units/mL. Current interpretive data was last revised on 2023. Blood 09/14/2024 6:06 AM FIELD CONTROL INSPECTOR 09/14/2024 6:23 AM FIELD CONTROL INSPECTOR us Abeba Ash MD LAB BLOOD ORDERABLES Final R esult Performing Organization Address [facility] Co de Phone Number [facility] [address] [facility] [employer] [place] [address] * (ABNORMAL) POCT glucose (09/14/2024 4:10 AM FIELD CONTROL INSPECTOR) [facility] Glucose, POC 301(H) 70 - 199 mg/dL Comment: For Glucose values <35 mg/dl when Hematocrit is >60 mg/dl,the test may not accurately detect significant hypoglycemia,and testing in the Laboratory should be considered if clinically indicated. Blood 09/14/2024 4:10 AM FIELD CONTROL INSPECTOR 09/14/2024 4:10 AM FIELD CONTROL INSPECTOR us Flo Villagran MD LAB POCT ORDERABLES - DEVICE Final Result Performing Organization Address [facility] Co de Phone Number [facility] [address] Department of [employer] [place] [address] * XR Chest 1 View (09/14/2024 3:10 AM FIELD CONTROL INSPECTOR) Anatomical Region Laterality Modality Body, Chest N/A Computed Radiogr aphy 09/14/2024 7:30 AM FIELD CONTROL INSPECTOR Impressions 09/14/2024 7:30 AM FIELD CONTROL INSPECTOR Comparison is made to prior chest radiograph dated 09/13/2024. Feeding tube terminates in the stomach. There are increased patchy opacities in the left greater than right lung bases. Findings are most consistent with pneumonia, possibly related to aspiration. No pleural effusion. No pneumothorax. Stable heart size. Electronically signed by: Pippa Sin M.D. Narrative 09/14/2024 7:30 AM FIELD CONTROL INSPECTOR EXAMINATION: XR CHEST 1 VIEW Procedure Note [...] lt * (ABNORMAL) eGFR (09/14/2024 1:59 AM FIELD CONTROL INSPECTOR) [facility] eGFR 38(L) >=60 mL/min/1. 73 m2 Comment: [...] last reviewed 2021. Blood 09/14/2024 1:59 AM FIELD CONTROL INSPECTOR 09/14/2024 2:14 AM FIELD CONTROL INSPECTOR Flo Villagran MD LAB BLOOD ORDERABLES Final R esult [facility] [address] Department [place] [address] * (ABNORMAL) Manual Differential (09/14/2024 1:59 AM FIELD CONTROL INSPECTOR) [facility] Cells Counted 125 Neutrophil abs 3.5 1.5 - 6.5 K/cumm [facility] Imm gran abs 0.1 0.0 - 0.1 K/cumm [facility] Lymphocyte abs 0.3(L) 0.8 - 3.3 K/cumm [facility] Monocyte abs 0.4 0.2 - 0.8 K/cumm [facility] Neutrophil pct 83.2 % [facility] Comment: Interpretive Data Percent cell count reference ranges are not reported, since discordance with absolute values may lead to misinterpretation of CBC data. Current Interpretive Data was last revised on 2017. Lymphocyte pct 6.4 % [facility] Comment: Interpretive Data Percent cell count reference ranges are not reported, since discordance with absolute values may lead to misinterpretation of CBC data. Current Interpretive Data was last revised on 2017. Monocyte pct 8.8 % [facility] Comment: Interpretive Data Percent cell count reference ranges are not reported, since discordance with absolute values may lead to misinterpretation of CBC data. Current Interpretive Data was last revised on 2017. Metamyelocyte pct 1.6(H) 0.0 - 0.0 % [facility] RBC morphology Present(A) [facility] Anisocytosis Slight(A) [facility] Poikilocytosis Moderate(A ) [facility] Echinocytes 3-7/HPF(A) [facility] Platelet estimate Decreased( A) [facility] Morphology scrn See Comment [facility] Comment:WBC: Toxic Vacuolati on present PLT: Platelet morphology normal Automated count not confirmed by smear review; See platelet estimate Blood 09/14/2024 1:59 AM FIELD CONTROL INSPECTOR 09/14/2024 2:14 AM FIELD CONTROL INSPECTOR Flo Villagran MD LAB BLOOD ORDERABLES Final R esult [facility] [address] Department [place] [address] * (ABNORMAL) CBC without differential (09/14/2024 1:59 AM FIELD CONTROL INSPECTOR) WBC 4.2 3.8 - 9.9 K/cumm Hgb 11.1(L) 11.9 - 15.5 g/dL [facility] Hct 36.5 35.6 - 45.5 % [facility] Plt 71(L) 150 - 400 K/cumm [facility] Comment:no clot MPV 12.8(H) 9.1 - 12.3 fL [facility] RBC 3.85(L) 3.90 - 5.20 M/cumm [facility] MCV 94.8 81.3 - 96.4 fL [facility] MCH 28.8 27.1 - 33.3 pg [facility] MCHC 30.4(L) 32.3 - 35.7 g/dL [facility] RDW CV 14.8 11.1 - 14.9 % [facility] RDW SD 51.8(H) 35.7 - 48.1 fL [facility] NRBC abs 0.00 0.00 - 0.01 K/cumm [facility] Blood 09/14/2024 1:59 AM FIELD CONTROL INSPECTOR 09/14/2024 2:14 AM FIELD CONTROL INSPECTOR Flo Villagran MD LAB BLOOD ORDERABLES Final R esult [facility] [address] [employer] [place], [place] [id number] * Phosphorus (09/14/2024 1:59 AM FIELD CONTROL INSPECTOR) [facility] Phosphorus, pl 4.2 2.3 - 4.5 mg/dL Comment:Reviewed Blood 09/14/2024 1:59 AM FIELD CONTROL INSPECTOR 09/14/2024 2:14 AM FIELD CONTROL INSPECTOR Flo Villagran MD LAB BLOOD ORDERABLES Final R esult [facility] [address] [facility] [employer] [place] [address] * Magnesium (09/14/2024 1:59 AM FIELD CONTROL INSPECTOR) Pathologist [facility] Magnesium 1.8 1.4 - 2.5 mg/dL Blood 09/14/2024 1:59 AM FIELD CONTROL INSPECTOR 09/14/2024 2:14 AM FIELD CONTROL INSPECTOR Flo Villagran MD LAB BLOOD ORDERABLES Final R esult Performing Organization Address City/[facility]/ZIP Co de Phone Number [facility] [address] [employer] [place], [place] [id number] * Bilirubin, direct (09/14/2024 1:59 AM FIELD CONTROL INSPECTOR) Pathologist [facility] Bilirubin, direct 0.3 0.1 - 0.3 mg/dL Blood 09/14/2024 1:59 AM FIELD CONTROL INSPECTOR 09/14/2024 2:14 AM FIELD CONTROL INSPECTOR Flo Villagran MD LAB BLOOD ORDERABLES Final R esult Performing Organization Address [facility] Co de Phone Number [facility] [address] [facility] [employer] [place] [address] * (ABNORMAL) Comprehensive metabolic panel (09/14/2024 1:59 AM FIELD CONTROL INSPECTOR) Pathologist [facility] Sodium 149(H) 135 - 145 mmol/L Potassium, pl 3.8 3.3 - 4.9 mmol/L [facility] Chloride 112(H) 97 - 110 mmol/L [facility] CO2 20(L) 22 - 32 mmol/L [facility] Anion gap 17(H) 2 - 15 mmol/L [facility] BUN 44(H) 6 - 25 mg/dL [facility] Creatinine 1.63(H) 0.60 - 1.10 mg/dL [facility] Glucose 312(H) 70 - 199 mg/dL [facility] Comment: Interpretive Data Fasting glucose >/= 126 [...] 2022. Calcium 8.5 8.5 - 10.3 mg/dL [facility] Bilirubin, total 0.6 0.1 - 1.2 mg/dL [facility] Protein, pl 6.0(L) 6.5 - 8.5 g/dL [facility] Albumin 2.8(L) 3.5 - 5.0 g/dL [facility] Alk phos 96 40 - 130 Units/L [facility] ALT 28 7 - 45 Units/L [facility] AST 51(H) 10 - 45 Units/L [facility] Blood 09/14/2024 1:59 AM FIELD CONTROL INSPECTOR 09/14/2024 2:14 AM FIELD CONTROL INSPECTOR Flo Villagran MD LAB BLOOD ORDERABLES Final R esult Performing Organization Address [facility] Co de Phone Number [facility] [address] Department of [employer] [place] [address] * (ABNORMAL) POCT glucose (09/14/2024 12:41 AM FIELD CONTROL INSPECTOR) Glucose, POC 266(H) 70 - 199 mg/dL Comment: For Glucose values <35 mg/dl when Hematocrit is >60 mg/dl,the test may not accurately detect significant hypoglycemia,and testing in the Laboratory should be considered if clinically indicated. Blood 09/14/2024 12:4 1 AM FIELD CONTROL INSPECTOR 09/14/2024 12:41 AM FIELD CONTROL INSPECTOR Flo Villagran MD LAB POCT ORDERABLES - DEVICE Final Result Performing Organization Address [facility]/ZIP Co de Phone Number [facility] [address] Department of [employer] [place], [place] [id number] * (ABNORMAL) aPTT (09/13/2024 9:58 PM FIELD CONTROL INSPECTOR) aPTT 148(C) 28 - 38 sec Comment: spoke with Linda Jean (RN) 09/13/2024 22:44:39 FIELD CONTROL INSPECTOR [id number] Interpretive Data Heparin therapeutic range: 66.0 - 100.0 seconds. Range based on correlation with therapeutic heparin activity range of 0.3 - 0.7 Units/mL. Current interpretive data was last revised on 2023. Blood 09/13/2024 9:58 PM FIELD CONTROL INSPECTOR 09/13/2024 10:02 PM FIELD CONTROL INSPECTOR us Flo Villagran MD LAB BLOOD ORDERABLES Final R esult [facility] [address] Department [place] [address] * XR Abdomen 2 Views Erect and or Decubitus (09/13/2024 9:41 PM FIELD CONTROL INSPECTOR) Anatomical Region Laterality Modality Body, Abdomen N/A Computed Radiogr aphy 09/14/2024 9:14 AM FIELD CONTROL INSPECTOR Impressions 09/14/2024 9:14 AM FIELD CONTROL INSPECTOR Supine and upright views of the abdomen [...] Alfonso Taylor M.D. Narrative 09/14/2024 9:14 AM FIELD CONTROL INSPECTOR EXAMINATION: XR ABDOMEN ERECT AND OR DECUBITUS [...] * (ABNORMAL) POCT glucose (09/13/2024 7:57 PM FIELD CONTROL INSPECTOR) Glucose, POC 249(H) 70 - 199 mg/dL Comment: For Glucose values <35 mg/dl when Hematocrit is >60 mg/dl,the test may not accurately detect significant hypoglycemia,and testing in the Laboratory should be considered if clinically indicated. Blood 09/13/2024 7:57 PM FIELD CONTROL INSPECTOR 09/13/2024 7:57 PM FIELD CONTROL INSPECTOR Flo Villagran MD LAB POCT ORDERABLES - DEVICE Final Result [facility] [address] Department [place] [address] * (ABNORMAL) eGFR (09/13/2024 6:33 PM FIELD CONTROL INSPECTOR) eGFR 47(L) >=60 mL/min/1. 73 m2 Comment: [...] last reviewed 2021. Blood 09/13/2024 6:33 PM FIELD CONTROL INSPECTOR 09/13/2024 6:41 PM FIELD CONTROL INSPECTOR Flo Villagran MD LAB BLOOD ORDERABLES Final R esult [facility] [address] Department [place] [address] * (ABNORMAL) Renal function panel (09/13/2024 6:33 PM FIELD CONTROL INSPECTOR) Sodium 146(H) 135 - 145 mmol/L Potassium, pl 3.6 3.3 - 4.9 mmol/L [facility] Chloride 112(H) 97 - 110 mmol/L [facility] CO2 20(L) 22 - 32 mmol/L [facility] Anion gap 14 2 - 15 mmol/L [facility] BUN 42(H) 6 - 25 mg/dL [facility] Creatinine 1.38(H) 0.60 - 1.10 mg/dL [facility] Glucose 182 70 - 199 mg/dL [facility] Comment: Interpretive Data Fasting glucose >/= 126 [...] 2022. Calcium 7.9(L) 8.5 - 10.3 mg/dL [facility] Phosphorus, pl 2.1(L) 2.3 - 4.5 mg/dL [facility] Albumin 2.4(L) 3.5 - 5.0 g/dL [facility] Blood 09/13/2024 6:33 PM FIELD CONTROL INSPECTOR 09/13/2024 6:41 PM FIELD CONTROL INSPECTOR Flo Villagran MD LAB BLOOD ORDERABLES Final R esult [facility] [address] Department [place] [address] * ECG 12 lead (09/13/2024 5:24 PM FIELD CONTROL INSPECTOR) 09/13/2024 5:24 PM FIELD CONTROL INSPECTOR Narrative [facility] - 09/14/2024 12:02 AM FIELD CONTROL INSPECTOR Vent Rate: 136 bpm RR Interval: 440 msec GA Interval: 122 msec QRS Duration: 86 msec QT Interval: 330 msec QTC Interval: 410 msec P-R-T [place]: 57 - -14 - 116 degrees IMPRESSION: SINUS TACHYCARDIA ST DEVIATION AND MODERATE T-WAVE ABNORMALITY, CONSIDER LATERAL ISCHEMIA ABNORMAL ECG Electronically Signed By: Nilson Dubose [facility] Card Flo Villagran MD ECG ORDERABLES Final Result Performing Organization Address [facility] Phone Number [facility] [employer] [facility] * POCT glucose (09/13/2024 4:29 PM FIELD CONTROL INSPECTOR) Glucose, POC 160 70 - 199 mg/dL Comment: For Glucose values <35 mg/dl when Hematocrit is >60 mg/dl,the test may not accurately detect significant hypoglycemia,and testing in the Laboratory should be considered if clinically indicated. Blood 09/13/2024 4:29 PM FIELD CONTROL INSPECTOR 09/13/2024 4:29 PM FIELD CONTROL INSPECTOR Flo Villagran MD LAB POCT ORDERABLES - DEVICE Final Result Performing Organization Address [facility] de Phone Number [facility] [address] Department [place] [address] * POCT glucose (09/13/2024 3:18 PM FIELD CONTROL INSPECTOR) Glucose, POC 92 70 - 199 mg/dL Comment: For Glucose values <35 mg/dl when Hematocrit is >60 mg/dl,the test may not accurately detect significant hypoglycemia,and testing in the Laboratory should be considered if clinically indicated. Blood 09/13/2024 3:18 PM FIELD CONTROL INSPECTOR 09/13/2024 3:18 PM FIELD CONTROL INSPECTOR Flo Villagran MD LAB POCT ORDERABLES - DEVICE Final Result Performing Organization Address [facility] de Phone Number [facility] [address] Department [place] [address] * POCT glucose (09/13/2024 2:29 PM FIELD CONTROL INSPECTOR) [facility] Glucose, POC 102 70 - 199 mg/dL Comment: For Glucose values <35 mg/dl when Hematocrit is >60 mg/dl,the test may not accurately detect significant hypoglycemia,and testing in the Laboratory should be considered if clinically indicated. Blood 09/13/2024 2:29 PM FIELD CONTROL INSPECTOR 09/13/2024 2:29 PM FIELD CONTROL INSPECTOR Flo Villagran MD LAB POCT ORDERABLES - DEVICE Final Result Performing Organization Address [facility] de Phone Number [facility] [address] Department of [employer] [place] [address] * (ABNORMAL) aPTT (09/13/2024 2:28 PM FIELD CONTROL INSPECTOR) [facility] aPTT 102(H) 28 - 38 sec Comment: Interpretive Data Heparin therapeutic range: 66.0 - 100.0 seconds. Range based on correlation with therapeutic heparin activity range of 0.3 - 0.7 Units/mL. Current interpretive data was last revised on 2023. Blood 09/13/2024 2:28 PM FIELD CONTROL INSPECTOR 09/13/2024 2:36 PM FIELD CONTROL INSPECTOR Flo Villagran MD LAB BLOOD ORDERABLES Final R esult Performing Organization Address [facility] de Phone Number [facility] [address] Department [place] [address] * POCT glucose (09/13/2024 1:10 PM FIELD CONTROL INSPECTOR) [facility] Glucose, POC 117 70 - 199 mg/dL Comment: For Glucose values <35 mg/dl when Hematocrit is >60 mg/dl,the test may not accurately detect significant hypoglycemia,and testing in the Laboratory should be considered if clinically indicated. Blood 09/13/2024 1:10 PM FIELD CONTROL INSPECTOR 09/13/2024 1:10 PM FIELD CONTROL INSPECTOR us Flo Villagran MD LAB POCT ORDERABLES - DEVICE Final Result Performing Organization Address [facility] Co de Phone Number [facility] [address] [employer] [place], [place] [id number] * (ABNORMAL) eGFR (09/13/2024 12:22 PM FIELD CONTROL INSPECTOR) [facility] eGFR 46(L) >=60 mL/min/1. 73 m2 [...] reviewed 2021. Blood 09/13/2024 12:2 2 PM FIELD CONTROL INSPECTOR 09/13/2024 12:40 PM FIELD CONTROL INSPECTOR us Abeba Ash MD LAB BLOOD ORDERABLES Final R esult Performing Organization Address [facility] Co de Phone Number [facility] [address] Department [employer] [address] * Phosphorus (09/13/2024 12:22 PM FIELD CONTROL INSPECTOR) [facility] Phosphorus, pl 2.3 2.3 - 4.5 mg/dL Blood 09/13/2024 12:2 2 PM FIELD CONTROL INSPECTOR 09/13/2024 12:40 PM FIELD CONTROL INSPECTOR Abeba Ash MD LAB BLOOD ORDERABLES Final R esult Performing Organization Address City/[facility]/ZIP Co de Phone Number [facility] [address] [employer] [place] [address] * Magnesium (09/13/2024 12:22 PM FIELD CONTROL INSPECTOR) [facility] Magnesium 1.9 1.4 - 2.5 mg/dL Blood 09/13/2024 12:2 2 PM FIELD CONTROL INSPECTOR 09/13/2024 12:40 PM FIELD CONTROL INSPECTOR Abeba Ash MD LAB [facility]LOOD ORDERABLES Final [facility] Performing Organization Address City/[facility] Co de Phone Number [facility] [address] [employer] [place] [address] * (ABNORMAL) Basic metabolic panel (09/13/2024 12:22 PM FIELD CONTROL INSPECTOR) [facility] Sodium 146(H) 135 - 145 mmol/L Potassium, pl 3.5 3.3 - 4.9 mmol/L [facility] Chloride 111(H) 97 - 110 mmol/L [facility] CO2 22 22 - 32 mmol/L [facility] Anion gap 13 2 - 15 mmol/L [facility] BUN 47(H) 6 - 25 mg/dL [facility] Creatinine 1.41(H) 0.60 - 1.10 mg/dL [facility] Glucose 141 70 - 199 mg/dL [facility] Comment: Interpretive Data Fasting glucose >/= 126 [...] 2022. Calcium 8.6 8.5 - 10.3 mg/dL [facility] Blood 09/13/2024 12:2 2 PM FIELD CONTROL INSPECTOR 09/13/2024 12:40 PM FIELD CONTROL INSPECTOR us Abeba Ash MD LAB BLOOD ORDERABLES Final R esult [facility] [address] Department of [employer] [place] [address] * POCT glucose (09/13/2024 12:20 PM FIELD CONTROL INSPECTOR) Glucose, POC 142 70 - 199 mg/dL Comment: For Glucose values <35 mg/dl when Hematocrit is >60 mg/dl,the test may not accurately detect significant hypoglycemia,and testing in the Laboratory should be considered if clinically indicated. Blood 09/13/2024 12:2 0 PM FIELD CONTROL INSPECTOR 09/13/2024 12:20 PM FIELD CONTROL INSPECTOR us Flo Villagran MD LAB POCT ORDERABLES - DEVICE Final Result Performing Organization Address City/[facility]/ZIP Co de Phone Number [facility] [address] Department of [employer] [place] [address] * US Carotids Duplex Bilateral (09/13/2024 11:55 AM FIELD CONTROL INSPECTOR) Anatomical Region Laterality Modality Vascular Bilateral Ultrasound 09/13/2024 12:3 7 PM FIELD CONTROL INSPECTOR Impressions 09/13/2024 12:37 PM FIELD CONTROL INSPECTOR 1) There are minimal non-hemodynamic plaque formations [...] Kwaku Tolentino M.D. Narrative 09/13/2024 12:37 PM FIELD CONTROL INSPECTOR DATE:09/13/2024 10:00 AM EXAM: Duplex imaging of [...] W DOPPLER/CF W CONTRAST (09/13/2024 11:24 AM FIELD CONTROL INSPECTOR) LV EF 45-50 % CONS SCIMAGE Anatomical Region Laterality Modality Ultrasound 09/13/2024 10:2 8 AM FIELD CONTROL INSPECTOR Narrative 09/13/2024 4:50 PM FIELD CONTROL INSPECTOR [facility] [address] [place] [address] ECHOCARDIOGRAM Patient Name: BROOKE MARSHALLDee : 1975 (48y 8m) Gender: F Study Date: 09/13/2024 10:28:21 AM Ht(Inch): 65 Wt(Lb): 201.94 BSA: 2.05 Research Chemical Engineer: MINH Location: [address] Order Provider: ABEBA ASH BMI: 33.6 BP: 111/63 Ref Provider: ABEBA ASH - PROCEDURES: Echocardiographic Report: Transthoracic Echocardiogram with 2D, M-Mode, Spectral and Color Flow Doppler examination and administration of intravenous contrast. INDICATIONS: Non ST elevation IA. MEASUREMENTS: 2D/MM Value Range Doppler Value Range [...] By: Rene Nicole MD 09/13/2024 4:49:40 PM FIELD CONTROL INSPECTOR Procedure Note Rene Nicole MD - 09/13/2024 [facility] [address] [place] [address] ECHOCARDIOGRAM Patient Name: BROOKE MARSHALL R : 1975 (48y 8m) Gender: F Study Date: 09/13/2024 10:28:21 AM Ht(Inch): 65 Wt(Lb): 201.94 BSA: 2.05 Research Chemical Engineer: MINH Location: [address] Order Provider: ABEBA ASH BMI: 33.6 BP: 111/63 Ref Provider: ABEBA ASH - PROCEDURES: Echocardiographic Report: Transthoracic Echocardiogram with 2D, M-Mode,Spectral and Color Flow Doppler examination and administration of intravenouscontrast. INDICATIONS: Non ST elevation IA. MEASUREMENTS: 2D/MM Value Range DopplerValue Range IVSd [...] By: Rene Nicole MD 09/13/2024 4:49:40 PM FIELD CONTROL INSPECTOR Abeba Ash MD CV ECHO PROCEDURES Final Res ult * POCT glucose (09/13/2024 11:12 AM FIELD CONTROL INSPECTOR) [facility] Glucose, POC 149 70 - 199 mg/dL Comment: For Glucose values <35 mg/dl when Hematocrit is >60 mg/dl,the test may not accurately detect significant hypoglycemia,and testing in the Laboratory should be considered if clinically indicated. Blood 09/13/2024 11:1 2 AM FIELD CONTROL INSPECTOR 09/13/2024 11:12 AM FIELD CONTROL INSPECTOR Flo Villagran MD LAB POCT ORDERABLES - DEVICE Final Result Performing Organization Address [facility] Co de Phone Number [facility] [address] [place] [address] * (ABNORMAL) DIC Platelet (09/13/2024 9:45 AM FIELD CONTROL INSPECTOR) [facility] Plt 96(L) 150 - 400 K/cumm Blood 09/13/2024 9:45 AM FIELD CONTROL INSPECTOR 09/13/2024 10:14 AM FIELD CONTROL INSPECTOR Flo Villagran MD LAB BLOOD ORDERABLES Final R esult Performing Organization Address [facility] Co de Phone Number [facility] [address] Department of [employer] [place] [address] * (ABNORMAL) DIC Coagulation (09/13/2024 9:45 AM FIELD CONTROL INSPECTOR) [facility] PT DIC 10.3 10.3 - 13.7 sec INR DIC 0.95 0.90 - 1.20 [facility] PTT DIC 78(H) 28 - 38 sec [facility] Comment: Interpretive Data Heparin therapeutic range: 66.0 - 100.0 seconds. Range based on correlation with therapeutic heparin activity range of 0.3 - 0.7 Units/mL. Current interpretive data was last revised on 2023. D-Dimer 2,217(H) <=499 ng/mL FEU [facility] Comment: Interpretive data FDA approved the D-dimer, [...] VTE cut-off 680 ng/ml FEU. References; Schrubina HT et al. Brit Med J. 2013;346:f2492. Shabana et al. Annals Int Med. 2015;163:701-11. Current interpretive data was last revised on 2019. Fibrinogen 620(H) 170 - 400 mg/dL [facility] Blood 09/13/2024 9:45 AM FIELD CONTROL INSPECTOR 09/13/2024 10:14 AM FIELD CONTROL INSPECTOR Flo Villagran MD LAB BLOOD ORDERABLES Final R esult [facility] [address] Department [place] [address] * HIT Antibodies with Reflex to Serotonin Release Assay (ASHLEY) (09/13/2024 9:45 AM FIELD CONTROL INSPECTOR) [facility] HIT antibodies Negative Negative Comment: INTERPRETIVE DATA A result of >/= 1.0 U/mL is interpreted as Heparin/anti-PF4 antibody positive. A result of < 1.0 U/mL is interpreted as Heparin/anti-PF4 antibody negative. Although a positive result may indicate the presence of Heparin-associated antibodies, it does not CONFIRM the diagnosis of Heparin Induced Thrombocytopenia (HIT). Positive specimens will be sent to Blood Center [facility] ([facility]) for confirmatory testing by Serotonin Release Assay (ASHLEY). Current interpretive data last reviewed 2017 Blood 09/13/2024 9:45 AM FIELD CONTROL INSPECTOR 09/13/2024 10:14 AM FIELD CONTROL INSPECTOR Flo Villagran MD LAB BLOOD ORDERABLES Final R esult Performing Organization Address [facility] Co de Phone Number [facility] [address] [facility] [employer] [place] [address] * DIC Schistocytes (09/13/2024 9:45 AM FIELD CONTROL INSPECTOR) Schistocytes None Seen None Seen Blood 09/13/2024 9:45 AM FIELD CONTROL INSPECTOR 09/13/2024 10:14 AM FIELD CONTROL INSPECTOR Flo Villagran MD LAB BLOOD ORDERABLES Final R esult Performing Organization Address [facility] de Phone Number [facility] [address] [place] [address] * (ABNORMAL) Urinalysis reflex to microscopic and culture Urine (09/13/2024 9:45 AM FIELD CONTROL INSPECTOR) Color, ur Yellow Yellow Clarity, ur Turbid(A) Clear [facility] Specific gravity, ur 1.020 1.003 - 1.030 [facility] pH, urine 6.0 [facility] Comment: Interpretive Data U rine pH is affected by diet, medications, systemic acid-base disturbances, and renal tubular function. pH may affect urinary stone formation. For example, urine pH below 6.0 may help reduce the tendency for calcium phosphate stones and pH greater than 6.0 may reduce the tendency for uric acid stone formation. Source: [facility] Current Interpretive Data was last revised on 2017 Protein, ur ql 2+(A) Negative [facility] Glucose, ur ql 3+(A) Negative [facility] Ketones, ur Trace Negative [facility] Bilirubin, ur Negative Negative [facility] Blood, ur 1+(A) Negative [facility] Urobilinogen, ur <2.0 <2.0 mg/dL [facility] Nitrite, ur Negative Negative [facility] Leukocyte esterase, ur 4+(A) Negative [facility] UA reflex comment Reflex to microscopic UA will be performed. [facility] Urine 09/13/2024 9:45 AM FIELD CONTROL INSPECTOR 09/13/2024 9:45 AM FIELD CONTROL INSPECTOR Flo Villagran MD LAB MICROBIOLOGY - GENERAL O RDERABLES Final Result [facility] [address] Department [place] [address] * (ABNORMAL) Drugs of Abuse Screen, Urine without Confirmation (09/13/2024 9:45 AM FIELD CONTROL INSPECTOR) Amphetamine, ur Not Detected CutOff 500ng/mL Comment: Interpretive Data - Amphetamines: Samples containing greater than 500 ng/mL d-methamphetamine or other cross-reacting amphetamine compounds are reported as positive. Amphetamine immunoassays are subject to significant false positive rates due to cross-reactivity of non-amphetamine drugs. Confirmatory testing required for definitive results. Current Interpretive Data was last reviewed 2023. Barbiturates, ur Not Detected CutOff 200ng/mL [facility] Comment: Interpretive Data - Barbiturates: Samples containing greater than 200 ng/mL secobarbital or other cross-reacting barbiturate compounds are reported as positive. False positive and false negative results are possible. Confirmatory testing required for definitive results. Current Interpretive Data was last reviewed 2023. Benzodiazepines, ur Not Detected CutOff 100ng/mL [facility] Comment: Interpretive Data - Benzodiazepines: Samples containing greater than 100 ng/mL nordiazepam or other cross-reacting compounds are reported as positive. False positive and false negative results are possible. Confirmatory testing required for definitive results. Current Interpretive Data was last reviewed 2023. Cannabinoids, ur Not Detected CutOff 50 ng/mL [facility] Comment: Interpretive Data - Cannabinoids: Samples containing greater than 50 ng/mL delta-9 THC -COOH or other cross- reacting compounds are reported as positive. False positive and false negative results are possible. Confirmatory testing required for definitive results. Current Interpretive Data was last reviewed 2023. Cocaine, ur Not Detected CutOff 150ng/mL [facility] Comment: Interpretive Data - Cocaine: Samples containing greater than 150 ng/mL benzoylecgonine or other cross- reacting compounds are reported as positive. False positive and false negative results are possible. Confirmatory testing required for definitive results. Current Interpretive Data was last reviewed 2023. Fentanyl, Ur Screen Positive, presumptive (A) CutOff 5 ng/mL [facility] Comment: Interpretive Data - Fentanyl: Samples containing greater than 5 ng/mL norfentanyl, fentanyl, or other cross-reacting fentanyl compounds are reported as positive. False positive and false negative results are possible. Confirmatory testing required for definitive results. Current Interpretive Data was last reviewed 2023. Methadone, ur Not Detected CutOff 300ng/mL [facility] Comment: Interpretive Data - Methadone: Samples containing greater than 300 ng/mL d,l-methadone or other cross-reacting compounds are reported as positive. False positive and false negative results are possible. Confirmatory testing required for definitive results. Current Interpretive Data was last reviewed 2023. Opiates, ur Screen Positive, presumptive (A) CutOff 300ng/mL [facility] Comment: Interpretive Data - Opiates: Samples containing greater than 300 ng/mL morphine or other cross-reacting compounds are reported as positive. False positive and false negative results are possible. Confirmatory testing required for definitive results. Current Interpretive Data was last reviewed 2023. Oxycodone, ur Not Detected CutOff 100ng/mL [facility] Comment: Interpretive Data - Oxycodone: Samples containing greater than 100 ng/mL oxycodone or other cross-reacting compounds are reported as positive. False positive and false negative results are possible. Confirmatory testing required for definitive results. Current Interpretive Data was last reviewed 2023. Phencyclidine, ur Not Detected CutOff 25 ng/mL [facility] Comment: Interpretive Data - Phencyclidine: Samples containing greater than 25 ng/mL phencyclidine or other cross-reacting compounds are reported as positive. False positive and false negative results are possible. Confirmatory testing required for definitive results. Current Interpretive Data was last reviewed 2023. Urine Creatinine 90 mg/dL [facility] Comment: Interpretive Data Urine Creatinine: < 10 mg/dL is extremely dilute = or > 10 but < 20 mg/dL is dilute = or > 20 mg/dL is normal Current Interpretive Data was last revised on 2017. Urine 09/13/2024 9:45 AM FIELD CONTROL INSPECTOR 09/13/2024 10:17 AM FIELD CONTROL INSPECTOR Narrative [facility] - 09/13/2024 10:46 AM FIELD CONTROL INSPECTOR Drug of Abuse screening is performed by immunoassay for medical purposes only. This is not to be used for Pain Management purposes. Flo Villagran MD LAB URINE ORDERABLES Final R esult Performing Organization Address [facility] Co de Phone Number [facility] [address] Department of Laboratories [place], [place] [id number] * (ABNORMAL) Urinalysis, microscopic only (09/13/2024 9:45 AM FIELD CONTROL INSPECTOR) WBC, ur >50(A) 0 - 5 /HPF RBC, ur >50(A) 0 - 2 /HPF [facility] Epithelial cells, squamous, ur >50(A) 0 - 5 /HPF [facility] Comment:Suggestive of contam ination. Consider recollection by clean catch. Bacteria, ur 4+(A) [facility] Yeast, ur 4+(A) [facility] Mucous, ur Present(A) [facility] Culture Reflex Comment Reflex to urine culture will be performed. [facility] Urine 09/13/2024 9:45 AM FIELD CONTROL INSPECTOR 09/13/2024 10:17 AM FIELD CONTROL INSPECTOR Flo Villagran MD LAB URINE ORDERABLES Final R esult Performing Organization Address [facility] Co de Phone Number [facility] [address] Department of [employer] [place] [address] * (ABNORMAL) Urine culture Urine (09/13/2024 9:45 AM FIELD CONTROL INSPECTOR) Report Final Report: Greater than or equal to 100,000 colonies/ml of Lactobacillus species Susceptibility not performed on this isolate (.) Organism LACTOBACILLUS SPECIES [facility] Urine 09/13/2024 9:45 AM FIELD CONTROL INSPECTOR 09/13/2024 11:49 AM FIELD CONTROL INSPECTOR Narrative [facility] - 09/15/2024 12:40 PM FIELD CONTROL INSPECTOR Urine culture reflexed based upon urinalysis results. Flo Villagran MD LAB MICROBIOLOGY - GENERAL O RDERABLES Final Result Performing Organization Address [facility] Co de Phone Number [facility] [address] Department [employer] [place] [address] * Ammonia (09/13/2024 9:45 AM FIELD CONTROL INSPECTOR) Pathologist [facility] Ammonia 14 <=50 mcmol/L Blood 09/13/2024 9:45 AM FIELD CONTROL INSPECTOR 09/13/2024 10:14 AM FIELD CONTROL INSPECTOR Flo Villagran MD LAB BLOOD ORDERABLES Final R esult Performing Organization Address [facility] Co de Phone Number [facility] [address] [employer] [place], [place] [id number] * POCT glucose (09/13/2024 9:31 AM FIELD CONTROL INSPECTOR) [facility] Glucose, POC 170 70 - 199 mg/dL Comment: For Glucose values <35 mg/dl when Hematocrit is >60 mg/dl,the test may not accurately detect significant hypoglycemia,and testing in the Laboratory should be considered if clinically indicated. Blood 09/13/2024 9:31 AM FIELD CONTROL INSPECTOR 09/13/2024 9:31 AM FIELD CONTROL INSPECTOR Abeba Ash MD LAB POCT ORDERABLES - DEVICE Final Result Performing Organization Address [facility] Co de Phone Number [facility] [address] [facility] [employer] [place] [address] * Lipase - Add on lab test (09/13/2024 9:25 AM FIELD CONTROL INSPECTOR) Pathologist [facility] Acceptable Yes Blood 09/13/2024 9:25 AM FIELD CONTROL INSPECTOR 09/13/2024 9:25 AM FIELD CONTROL INSPECTOR Narrative [facility] - 09/13/2024 9:26 AM FIELD CONTROL INSPECTOR Name of Test->Lipase Flo Villagran MD LAB BLOOD ORDERABLES Final R esult Performing Organization Address [facility] Co de Phone Number [facility] [address] Department [employer] [place] [address] * Amylase - Add on lab test (09/13/2024 9:25 AM FIELD CONTROL INSPECTOR) Acceptable Yes Blood 09/13/2024 9:25 AM FIELD CONTROL INSPECTOR 09/13/2024 9:25 AM FIELD CONTROL INSPECTOR Narrative [facility] - 09/13/2024 9:26 AM FIELD CONTROL INSPECTOR Name of Test->Amylase Flo Villagran MD LAB BLOOD ORDERABLES Final R esult Performing Organization Address [facility] Co de Phone Number [facility] [address] Department of [employer] [place] [address] * XR Chest 1 Vw (09/13/2024 8:30 AM FIELD CONTROL INSPECTOR) Anatomical Region Laterality Modality Body, Chest N/A Computed Radiogr aphy 09/13/2024 9:34 AM FIELD CONTROL INSPECTOR Impressions 09/13/2024 9:34 AM FIELD CONTROL INSPECTOR Gastric tube tip overlies the gastric body, side port overlies the gastric antrum, possibly kinked at the side port. Patchy left retrocardiac opacities could reflect atelectasis, aspiration, or pneumonia. No pneumothorax or pleural effusion. Heart size and mediastinal contours normal Electronically signed by: Ana Luisa Benson M.D. Narrative 09/13/2024 9:34 AM FIELD CONTROL INSPECTOR EXAMINATION: Chest 1 view. HISTORY: Check tube [...] lt * (ABNORMAL) eGFR (09/13/2024 8:11 AM FIELD CONTROL INSPECTOR) eGFR 46(L) >=60 mL/min/1. 73 m2 Comment: [...] last reviewed 2021. Blood 09/13/2024 8:11 AM FIELD CONTROL INSPECTOR 09/13/2024 8:21 AM FIELD CONTROL INSPECTOR us Abeba Ash MD LAB BLOOD ORDERABLES Final R esult [facility] [address] Department [place] [address] * Beta-hydroxybutyrate (09/13/2024 8:11 AM FIELD CONTROL INSPECTOR) Beta-Hydroxybut yrate 0.5 <=0.5 mmol/L Blood 09/13/2024 8:11 AM FIELD CONTROL INSPECTOR 09/13/2024 8:16 AM FIELD CONTROL INSPECTOR Abeba Ash MD LAB BLOOD ORDERABLES Final R esult Performing Organization Address [facility] de Phone Number [facility] [address] [facility] [employer] [place] [address] * (ABNORMAL) aPTT (09/13/2024 8:11 AM FIELD CONTROL INSPECTOR) aPTT 72(H) 28 - 38 sec Comment: Interpretive Data Heparin therapeutic range: 66.0 - 100.0 seconds. Range based on correlation with therapeutic heparin activity range of 0.3 - 0.7 Units/mL. Current interpretive data was last revised on 2023. Blood 09/13/2024 8:11 AM FIELD CONTROL INSPECTOR 09/13/2024 8:21 AM FIELD CONTROL INSPECTOR Abeba Ash MD LAB BLOOD ORDERABLES Final R esult Performing Organization Address [facility] Co de Phone Number [facility] [address] Department [employer] [place] [address] * (ABNORMAL) Phosphorus (09/13/2024 8:11 AM FIELD CONTROL INSPECTOR) Phosphorus, pl 2.1(L) 2.3 - 4.5 mg/dL Blood 09/13/2024 8:11 AM FIELD CONTROL INSPECTOR 09/13/2024 8:16 AM FIELD CONTROL INSPECTOR Abeba Ash MD LAB BLOOD ORDERABLES Final R esult Performing Organization Address [facility] de Phone Number [facility] [facility] [address] [facility] [employer] [place] [address] * Magnesium (09/13/2024 8:11 AM FIELD CONTROL INSPECTOR) Magnesium 1.9 1.4 - 2.5 mg/dL Blood 09/13/2024 8:11 AM FIELD CONTROL INSPECTOR 09/13/2024 8:16 AM FIELD CONTROL INSPECTOR Abeba Ash MD LAB BLOOD ORDERABLES Final R esult Performing Organization Address City/[facility]/ZIP Co de Phone Number [facility] [address] [facility] [employer] [place] [address] * Lipase (09/13/2024 8:11 AM FIELD CONTROL INSPECTOR) Pathologist [facility] Lipase 25 10 - 99 Units/L Blood 09/13/2024 8:11 AM FIELD CONTROL INSPECTOR 09/13/2024 8:21 AM FIELD CONTROL INSPECTOR Abeba Ash MD LAB BLOOD ORDERABLES Final R esult Performing Organization Address [facility] Co de Phone Number [facility] [address] [facility] [employer] [place] [address] * Amylase (09/13/2024 8:11 AM FIELD CONTROL INSPECTOR) [facility] Amylase 48 30 - 99 Units/L Blood 09/13/2024 8:11 AM FIELD CONTROL INSPECTOR 09/13/2024 8:21 AM FIELD CONTROL INSPECTOR Abeba Ash MD LAB BLOOD ORDERABLES Final R esult Performing Organization Address [facility] Co de Phone Number [facility] [address] [facility] [employer] [place] [address] * (ABNORMAL) Basic metabolic panel (09/13/2024 8:11 AM FIELD CONTROL INSPECTOR) [facility] Sodium 147(H) 135 - 145 mmol/L Potassium, pl 3.7 3.3 - 4.9 mmol/L [facility] Chloride 112(H) 97 - 110 mmol/L [facility] CO2 21(L) 22 - 32 mmol/L [facility] Anion gap 14 2 - 15 mmol/L [facility] BUN 49(H) 6 - 25 mg/dL [facility] Creatinine 1.40(H) 0.60 - 1.10 mg/dL [facility] Glucose 147 70 - 199 mg/dL [facility] Comment: Interpretive Data Fasting glucose >/= 126 [...] 2022. Calcium 8.6 8.5 - 10.3 mg/dL [facility] Blood 09/13/2024 8:11 AM FIELD CONTROL INSPECTOR 09/13/2024 8:16 AM FIELD CONTROL INSPECTOR us Abeba Ash MD LAB BLOOD ORDERABLES Final R esult Performing Organization Address [facility] Co de Phone Number [facility] [address] Department [employer] [place], [place] [phone] * (ABNORMAL) Blood gas, arterial (09/13/2024 7:58 AM FIELD CONTROL INSPECTOR) pH, Art 7.38 7.35 - 7.45 PCO2, Arterial 39 35 - 45 mmHg [facility] PO2, Arterial 76(L) 83 - 108 mmHg [facility] HCO3 Art (Calculated) 23 20 - 30 mmol/L [facility] BE, art -2 mmol/L [facility] Comment: Interpretive Data No Reference Range Established Current Interpretive Data was last revised on 2017 O2 Sat Art (Calculated) 95 94 - 98 % [facility] Blood 09/13/2024 7:58 AM FIELD CONTROL INSPECTOR 09/13/2024 8:02 AM FIELD CONTROL INSPECTOR us Flo Villagran MD LAB BLOOD ORDERABLES Final R esult Performing Organization Address [facility] Co de Phone Number [facility] [address] Department of [employer] [place], [place] [phone] * POCT glucose (09/13/2024 7:54 AM FIELD CONTROL INSPECTOR) [facility] Glucose, POC 157 70 - 199 mg/dL Comment: For Glucose values <35 mg/dl when Hematocrit is >60 mg/dl,the test may not accurately detect significant hypoglycemia,and testing in the Laboratory should be considered if clinically indicated. Blood 09/13/2024 7:54 AM FIELD CONTROL INSPECTOR 09/13/2024 7:54 AM FIELD CONTROL INSPECTOR Abeba Ash MD LAB POCT ORDERABLES - DEVICE Final Result Performing Organization Address [facility] Co de Phone Number [facility] [address] Department [employer] [place] [address] * POCT glucose (09/13/2024 6:04 AM FIELD CONTROL INSPECTOR) [facility] Glucose, POC 149 70 - 199 mg/dL Comment: For Glucose values <35 mg/dl when Hematocrit is >60 mg/dl,the test may not accurately detect significant hypoglycemia,and testing in the Laboratory should be considered if clinically indicated. Blood 09/13/2024 6:04 AM FIELD CONTROL INSPECTOR 09/13/2024 6:04 AM FIELD CONTROL INSPECTOR Abeba Ash MD LAB POCT ORDERABLES - DEVICE Final Result Performing Organization Address [facility] de Phone Number [facility] [address] Department of [employer] [place] [address] * (ABNORMAL) Blood culture Blood (09/13/2024 5:22 AM FIELD CONTROL INSPECTOR) [facility] Direct Specimen Exam Molecular Analysis: Staphylococcus aureus, methicillin-suscep tible (MSSA) detected by the [employer] Blood Culture Identification Panel. This test does not exclude the possibility of a mixed bacterial infection. Please consider this result in the context of clinical findings and evaluate the possibility of antimicrobial de-escalation. Test result called to and read back by Ceferino Grier RN on 09/13/2024 22:28:52 by [email or web address] Direct Specimen Exam Stain: Gram Positive Cocci in clusters [facility] Report Final Report: Staphylococcus aureus, methicillin susceptible (.) [facility] Organism STAPHYLOCOCCUS AUREUS, METHICILLIN SUSCEPTIBLE [facility] Blood 09/13/2024 5:22 AM FIELD CONTROL INSPECTOR 09/13/2024 5:48 AM FIELD CONTROL INSPECTOR Narrative [facility] - 09/15/2024 7:42 AM FIELD CONTROL INSPECTOR From a different site than #1. Collection->Peripheral [...] organism identification may be performed using the [email or web address] Blood Culture Identification panel. This assay detects microbial DNA in a blood culture broth. This assay has been cleared by the [place] Food and Drug Administration and its performance characteristics have been verified by the [facility]. Interpretive data was last [...] MICROBIOLOGY - GENERAL O RDERABLES Final Result [facility] [address] Department [place] [address] * POCT glucose (09/13/2024 5:06 AM FIELD CONTROL INSPECTOR) [facility] Signature Glucose, POC 152 70 - 199 mg/dL Comment: For Glucose values <35 mg/dl when Hematocrit is >60 mg/dl,the test may not accurately detect significant hypoglycemia,and testing in the Laboratory should be considered if clinically indicated. Blood 09/13/2024 5:06 AM FIELD CONTROL INSPECTOR 09/13/2024 5:06 AM FIELD CONTROL INSPECTOR Abeba Ash MD LAB POCT ORDERABLES - DEVICE Final Result Performing Organization Address [facility] Co de Phone Number [facility] [address] [facility] [employer] [place] [address] * POCT glucose (09/13/2024 4:05 AM FIELD CONTROL INSPECTOR) Glucose, POC 189 70 - 199 mg/dL Comment: For Glucose values <35 mg/dl when Hematocrit is >60 mg/dl,the test may not accurately detect significant hypoglycemia,and testing in the Laboratory should be considered if clinically indicated. Blood 09/13/2024 4:05 AM FIELD CONTROL INSPECTOR 09/13/2024 4:05 AM FIELD CONTROL INSPECTOR Abeba Ash MD LAB POCT ORDERABLES - DEVICE Final Result Performing Organization Address [facility] Co de Phone Number [facility] [address] [facility] [employer] [place] [address] * CT Head WO Contrast (09/13/2024 3:40 AM FIELD CONTROL INSPECTOR) Anatomical Region Laterality Modality Head and Neck N/A Computed Tomogra phy 09/13/2024 3:31 AM FIELD CONTROL INSPECTOR Addenda Addendum by Zion Rodriguez MD on 09/13/2024 7:20 AM FIELD CONTROL INSPECTOR The Non Critical results were discussed with Dr. Flo Villagran by Wei Godinez, Civil Engineer Helper on 09/13/2024 at 7:16 Edited by: Wei Godinez Electronically signed by: Zion Rodriguez M.D. Impressions 09/13/2024 6:55 AM FIELD CONTROL INSPECTOR 1. Small lucency in the right thalamus suspicious for age indeterminate lacunar infarct, new compared to CT 09/22/2021. If there is concern for acute infarct further evaluation can be made with MRI. 2. Otherwise no CT evidence of acute intracranial abnormality. 3. Hyperdense material in the right globe likely intraocular silicone and postoperative in nature. Correlate with history. For the purposes of quality control technician, this study was initially interpreted by teleradiology. There is a non-emergent discrepancy that does not immediately impact patient care. Electronically signed by: Zion Rodriguez M.D. Narrative 09/13/2024 6:55 AM FIELD CONTROL INSPECTOR EXAM:CT HEAD WO CONTRAST INDICATION: Right pupil [...] with history. For the purposes of quality control technician, this study was initially interpreted by teleradiology. There is a non-emergent discrepancy that does not immediately impact patient care. Electronically signed by: Zion Rodriguez M.D. Abeba Ash MD IMG CT PROCEDURES Edited Res ult - Final * (ABNORMAL) POCT glucose (09/13/2024 3:15 AM FIELD CONTROL INSPECTOR) Glucose, POC 283(H) 70 - 199 mg/dL Comment: For Glucose values <35 mg/dl when Hematocrit is >60 mg/dl,the test may not accurately detect significant hypoglycemia,and testing in the Laboratory should be considered if clinically indicated. Blood 09/13/2024 3:15 AM FIELD CONTROL INSPECTOR 09/13/2024 3:15 AM FIELD CONTROL INSPECTOR Abeba Ash MD LAB POCT ORDERABLES - DEVICE Final Result [facility] [address] Department [place] [address] * (ABNORMAL) Urinalysis reflex to microscopic and culture Urine (09/13/2024 2:59 AM FIELD CONTROL INSPECTOR) Color, ur Yellow Yellow Clarity, ur Turbid(A) Clear [facility] Specific gravity, ur 1.016 1.003 - 1.030 [facility] pH, urine 5.5 [facility] Comment: Interpretive Data U rine pH is affected by diet, medications, systemic acid-base disturbances, and renal tubular function. pH may affect urinary stone formation. For example, urine pH below 6.0 may help reduce the tendency for calcium phosphate stones and pH greater than 6.0 may reduce the tendency for uric acid stone formation. Source: [facility] [employer] Current Interpretive Data was last revised on 2017 Protein, ur ql 1+(A) Negative [facility] Glucose, ur ql 4+(A) Negative [facility] Ketones, ur 2+(A) Negative [facility] Bilirubin, ur Negative Negative [facility] Blood, ur Trace(A) Negative [facility] Urobilinogen, ur <2.0 <2.0 mg/dL [facility] Nitrite, ur Negative Negative [facility] Leukocyte esterase, ur 4+(A) Negative [facility] UA reflex comment Reflex to microscopic UA will be performed. [facility] Urine 09/13/2024 2:59 AM FIELD CONTROL INSPECTOR 09/13/2024 3:04 AM FIELD CONTROL INSPECTOR Abeba Ash MD LAB MICROBIOLOGY - GENERAL O RDERABLES Final Result Performing Organization Address [facility] Co de Phone Number [facility] [address] [place] [address] * (ABNORMAL) Urinalysis, microscopic only (09/13/2024 2:59 AM FIELD CONTROL INSPECTOR) WBC, ur 21-50(A) 0 - 5 /HPF RBC, ur >50(A) 0 - 2 /HPF [facility] Epithelial cells, squamous, ur 6-10(A) 0 - 5 /HPF [facility] Comment:Suggestive of contam ination. Consider recollection by clean catch. Bacteria, ur 4+(A) [facility] Culture Reflex Comment Reflex to urine culture will be performed. [facility] Urine 09/13/2024 2:59 AM FIELD CONTROL INSPECTOR 09/13/2024 3:32 PM FIELD CONTROL INSPECTOR Abeba Ash MD LAB URINE ORDERABLES Final R esult Performing Organization Address [facility] Co de Phone Number [facility] [address] Department [employer] [place], [place] [id number] * (ABNORMAL) Urine culture Urine (09/13/2024 2:59 AM FIELD CONTROL INSPECTOR) Report Final Report: Greater than or equal to 100,000 colonies/ml of Lactobacillus species Susceptibility not performed on this isolate (.) Organism LACTOBACILLUS SPECIES [facility] Urine 09/13/2024 2:59 AM FIELD CONTROL INSPECTOR 09/13/2024 3:41 PM FIELD CONTROL INSPECTOR Narrative [facility] - 09/14/2024 12:08 PM FIELD CONTROL INSPECTOR Urine culture reflexed based upon urinalysis results. Abeba Ash MD LAB MICROBIOLOGY - GENERAL O RDERABLES Final Result Performing Organization Address [facility] Co de Phone Number [facility] [address] Department [place] [address] * (ABNORMAL) POCT glucose (09/13/2024 2:03 AM FIELD CONTROL INSPECTOR) [facility] Glucose, POC 260(H) 70 - 199 mg/dL Comment: For Glucose values <35 mg/dl when Hematocrit is >60 mg/dl,the test may not accurately detect significant hypoglycemia,and testing in the Laboratory should be considered if clinically indicated. Blood 09/13/2024 2:03 AM FIELD CONTROL INSPECTOR 09/13/2024 2:03 AM FIELD CONTROL INSPECTOR us Abeba Ash MD LAB POCT ORDERABLES - DEVICE Final Result Performing Organization Address [facility] de Phone Number [facility] [address] Department [place] [address] * ECG 12 lead (09/13/2024 1:58 AM FIELD CONTROL INSPECTOR) 09/13/2024 1:58 AM FIELD CONTROL INSPECTOR Narrative [facility] - 09/13/2024 9:32 PM FIELD CONTROL INSPECTOR Vent Rate: 134 bpm RR Interval: 445 msec GA Interval: 118 msec QRS Duration: 87 msec QT Interval: 331 msec QTC Interval: 410 msec P-R-T [place]: 66 - -15 - 124 degrees IMPRESSION: SINUS TACHYCARDIA WITH SHORT GA INTERVAL ST DEVIATION AND MODERATE T-WAVE ABNORMALITY, CONSIDER LATERAL ISCHEMIA ABNORMAL ECG Electronically Signed By: Rene Nicole MD Abeba Ash MD ECG ORDERABLES Final Result Performing Organization Address [facility] Co de Phone Number [facility] [employer] [facility] * (ABNORMAL) Respiratory pathogen panel Nasopharyngeal (09/13/2024 1:50 AM FIELD CONTROL INSPECTOR) [facility] Influenza A/2009 RNA Detected(A) Not Detected [facility] Influenza B RNA Not Detected Not Detected [facility] RSV RNA Not Detected Not Detected [facility] COVID-19 RNA Not Detected Not Detected [facility] Coronavirus 229E RNA Not Detected Not Detected [facility] Coronavirus HKU1 RNA Not Detected Not Detected [facility] Coronavirus NL63 RNA Not Detected Not Detected [facility] Coronavirus OC43 RNA Not Detected Not Detected [facility] Adenovirus DNA Not Detected Not Detected [facility] Metapneumovirus RNA Not Detected Not Detected [facility] Rhinovirus/Enterov irus RNA Not Detected Not Detected [facility] Parainfluenza 1 RNA Not Detected Not Detected [facility] Parainfluenza 2 RNA Not Detected Not Detected [facility] Parainfluenza 3 RNA Not Detected Not Detected [facility] Parainfluenza 4 RNA Not Detected Not Detected [facility] B. pertussis DNA Not Detected Not Detected [facility] B. parapertussis DNA Not Detected Not Detected [facility] C. pneumoniae DNA Not Detected Not Detected [facility] M. pneumoniae DNA Not Detected Not Detected [facility] Comment: Interpretive Data The [employer] FilmArray Respiratory Panel (RP2.1) assay is a [...] assay has FDA clearance for testing of CEMENT BREAKER swabs. The performance characteristics of this assay have been determined by [facility]. Current interpretive data was last revised on 2021. Nasopharyngeal 09/13/2024 1: 50 AM FIELD CONTROL INSPECTOR 09/13/2024 2:04 AM FIELD CONTROL INSPECTOR Narrative [facility] - 09/13/2024 2:57 AM FIELD CONTROL INSPECTOR Is the Patient experiencing symptoms consistent with COVID?->Yes Surveillance testing for transplant patient?->No Abeba Ash MD LAB MICROBIOLOGY - GENERAL O RDERABLES Final Result [facility] [address] Department [place] [address] MBC * (ABNORMAL) Blood culture Blood (09/13/2024 1:50 AM FIELD CONTROL INSPECTOR) Direct Specimen Exam Stain: Gram Positive Cocci in clusters Test result called to and read back by Sandra Joiner RN on 09/14/2024 12:27:01 by PDC. Report Final Report: Staphylococcus aureus, methicillin susceptible Susceptibility reported on this organism on previous culture [id number] (.) [facility] Organism STAPHYLOCOCCUS AUREUS, METHICILLIN SUSCEPTIBLE [facility] Blood 09/13/2024 1:50 AM FIELD CONTROL INSPECTOR 09/13/2024 2:17 AM FIELD CONTROL INSPECTOR Narrative [facility] - 09/15/2024 10:49 AM FIELD CONTROL INSPECTOR Collection->Peripheral Interpretive Data 1. Blood cultures are incubated and monitored continuously for 5 days (120 hours). The first negative report is issued within 24 hours of receipt in the laboratory. 2. All positive cultures are resulted and called to physicians/care providers as soon as they are detected. 3. A rapid molecular test for organism identification may be performed using the [email or web address] Blood Culture Identification panel. This assay detects microbial DNA in a blood culture broth. This assay has been cleared by the [place] Food and Drug Administration and its performance characteristics have been verified by the [facility]. Interpretive data was last revised on September 11, 2022. Abeba Ash MD LAB MICROBIOLOGY - GENERAL O RDERABLES Final Result Performing Organization Address [facility] Co de Phone Number [facility] [address] Department [employer] [place] [address] * (ABNORMAL) Troponin T high-sensitivity (09/13/2024 1:46 AM FIELD CONTROL INSPECTOR) Trop T hs 116(H) <=14 ng/L Comment: Interpretive Data For further hscTnT resources including the diagnostic algorithm and an aid in interpretation, copy and paste this link: https://nrl.testcatalog.org/show/[email or web address] Current Interpretive Data last revised 2020. Blood 09/13/2024 1:46 AM FIELD CONTROL INSPECTOR 09/13/2024 1:53 AM FIELD CONTROL INSPECTOR Abeba Ash MD LAB BLOOD ORDERABLES Final R esult Performing Organization Address [facility] Co de Phone Number [facility] [address] Department [employer] [place], [place] [phone] * (ABNORMAL) Lactate (09/13/2024 1:46 AM FIELD CONTROL INSPECTOR) Lactate 2.6(H) 0.7 - 2.0 mmol/L Blood 09/13/2024 1:46 AM FIELD CONTROL INSPECTOR 09/13/2024 1:51 AM FIELD CONTROL INSPECTOR Abeba Ash MD LAB BLOOD ORDERABLES Final R esult Performing Organization Address [facility] Co de Phone Number [facility] [address] Department of [employer] [place] [address] * (ABNORMAL) eGFR (09/13/2024 1:46 AM FIELD CONTROL INSPECTOR) eGFR 44(L) >=60 mL/min/1. 73 m2 Comment: [...] last reviewed 2021. Blood 09/13/2024 1:46 AM FIELD CONTROL INSPECTOR 09/13/2024 1:53 AM FIELD CONTROL INSPECTOR us Abeba Ash MD LAB BLOOD ORDERABLES Final R esult Performing Organization Address City/[facility]/ZIP Co de Phone Number [facility] [address] Department of [employer] [place], [place] [phone] * (ABNORMAL) Differential, auto (09/13/2024 1:46 AM FIELD CONTROL INSPECTOR) Pathologist [facility] Neutrophil abs 6.6(H) 1.5 - 6.5 K/cumm Imm gran abs 0.0 0.0 - 0.1 K/cumm [facility] Lymphocyte abs 0.5(L) 0.8 - 3.3 K/cumm [facility] Monocyte abs 0.7 0.2 - 0.8 K/cumm [facility] Eosinophil abs 0.0 0.0 - 0.5 K/cumm [facility] Basophil abs 0.0 0.0 - 0.1 K/cumm [facility] Neutrophil pct 84.7 % [facility] Comment: Interpretive Data Percent cell count reference ranges are not reported, since discordance with absolute values may lead to misinterpretation of CBC data. Current Interpretive Data was last revised on 2017. Imm gran pct 0.5 % [facility] Comment: Interpretive Data Percent cell count reference ranges are not reported, since discordance with absolute values may lead to misinterpretation of CBC data. Current Interpretive Data was last revised on 2017. Lymphocyte pct 5.8 % [facility] Comment: Interpretive Data Percent cell count reference ranges are not reported, since discordance with absolute values may lead to misinterpretation of CBC data. Current Interpretive Data was last revised on 2017. Monocyte pct 8.9 % [facility] Comment: Interpretive Data Percent cell count reference ranges are not reported, since discordance with absolute values may lead to misinterpretation of CBC data. Current Interpretive Data was last revised on 2017. Eosinophil pct 0.0 % [facility] Comment: Interpretive Data Percent cell count reference ranges are not reported, since discordance with absolute values may lead to misinterpretation of CBC data. Current Interpretive Data was last revised on 2017. Basophil pct 0.1 % [facility] Comment: Interpretive Data Percent cell count reference ranges are not reported, since discordance with absolute values may lead to misinterpretation of CBC data. Current Interpretive Data was last revised on 2017. Blood 09/13/2024 1:46 AM FIELD CONTROL INSPECTOR 09/13/2024 1:53 AM FIELD CONTROL INSPECTOR us Abeba Ash MD LAB BLOOD ORDERABLES Final R esult [facility] [address] Department of [employer] [place] [address] * (ABNORMAL) Pro B-type natriuretic peptide (09/13/2024 1:46 AM FIELD CONTROL INSPECTOR) NT-proBNP 6,745(H) <=300 pg/mL Comment: Interpretive Comments: [...] Revised Date: 2018. Blood 09/13/2024 1:46 AM FIELD CONTROL INSPECTOR 09/13/2024 1:53 AM FIELD CONTROL INSPECTOR us Abeba Ash MD LAB BLOOD ORDERABLES Final R esult [facility] [address] Department [place] [address] * (ABNORMAL) CBC with auto differential (09/13/2024 1:46 AM FIELD CONTROL INSPECTOR) [facility] WBC 7.7 3.8 - 9.9 K/cumm Hgb 11.9 11.9 - 15.5 g/dL [facility] Hct 39.4 35.6 - 45.5 % [facility] Plt 111(L) 150 - 400 K/cumm [facility] MPV 12.8(H) 9.1 - 12.3 fL [facility] RBC 4.15 3.90 - 5.20 M/cumm [facility] MCV 94.9 81.3 - 96.4 fL [facility] MCH 28.7 27.1 - 33.3 pg [facility] MCHC 30.2(L) 32.3 - 35.7 g/dL [facility] RDW CV 14.6 11.1 - 14.9 % [facility] RDW SD 50.7(H) 35.7 - 48.1 fL [facility] NRBC abs 0.00 0.00 - 0.01 K/cumm [facility] Blood 09/13/2024 1:46 AM FIELD CONTROL INSPECTOR 09/13/2024 1:53 AM FIELD CONTROL INSPECTOR us Abeba Ash MD LAB BLOOD ORDERABLES Final R [facility] Performing Organization Address City/[facility]/ZIP Co de Phone Number [facility] [address] Department [place] [address] * (ABNORMAL) aPTT (09/13/2024 1:46 AM FIELD CONTROL INSPECTOR) [facility] aPTT 25(L) 28 - 38 sec Comment: Interpretive Data Heparin therapeutic range: 66.0 - 100.0 seconds. Range based on correlation with therapeutic heparin activity range of 0.3 - 0.7 Units/mL. Current interpretive data was last revised on 2023. Blood 09/13/2024 1:46 AM FIELD CONTROL INSPECTOR 09/13/2024 1:53 AM FIELD CONTROL INSPECTOR us Abeba Ash MD LAB BLOOD ORDERABLES Final R esult [facility] [address] Department [employer] [address] * Protime-INR (09/13/2024 1:46 AM FIELD CONTROL INSPECTOR) [facility] PT 10.0 9.7 - 13.0 sec INR 0.93 0.90 - 1.20 [facility] Comment: Interpretive data Oral anticoagulant therapeutic ranges: Venous thromboembolism prophylaxis or treatment: 2.0-3.0 CARDIOLOGY Standard range: 2.0-3.0 High-intensity range: 2.5-3.5 Refer to indication-specific guidelines for appropriate target ranges for prosthetic heart valve replacement. Current interpretive data was last revised on 2019. Blood 09/13/2024 1:46 AM FIELD CONTROL INSPECTOR 09/13/2024 1:53 AM FIELD CONTROL INSPECTOR Abeba Ash MD LAB BLOOD ORDERABLES Final R esult [facility] [address] Department [employer] [place] [address] * Type and screen (09/13/2024 1:46 AM FIELD CONTROL INSPECTOR) [facility] ABO Rh A Positive Charles, indirect Negative [facility] Blood 09/13/2024 1:46 AM FIELD CONTROL INSPECTOR 09/13/2024 1:51 AM FIELD CONTROL INSPECTOR Narrative [facility] - 09/13/2024 2:31 AM FIELD CONTROL INSPECTOR Has the patient had Daratumumab or Isatuximab in the past 6 months?->Unknown Abeba Ash MD LAB BLOOD BANK TEST ORDERABL ES Final Result [facility] [address] [facility] [employer] [place] [address] * Phosphorus (09/13/2024 1:46 AM FIELD CONTROL INSPECTOR) [facility] Phosphorus, pl 2.7 2.3 - 4.5 mg/dL Blood 09/13/2024 1:46 AM FIELD CONTROL INSPECTOR 09/13/2024 1:53 AM FIELD CONTROL INSPECTOR Abeba Ash MD LAB BLOOD ORDERABLES Final R esult Performing Organization Address [facility] de Phone Number [facility] [address] [place] [address] * Magnesium (09/13/2024 1:46 AM FIELD CONTROL INSPECTOR) Pathologist [facility] Magnesium 2.1 1.4 - 2.5 mg/dL Blood 09/13/2024 1:46 AM FIELD CONTROL INSPECTOR 09/13/2024 1:53 AM FIELD CONTROL INSPECTOR Abeba Ash MD LAB BLOOD ORDERABLES Final R [facility] Performing Organization Address [facility] de Phone Number [facility] [address] [employer] [place] [address] * (ABNORMAL) Hemoglobin A1c (09/13/2024 1:46 AM FIELD CONTROL INSPECTOR) Pathologist [facility] Hgb A1C 9.1(H) 4.0 - 5.6 % Estimated Average Glucose 214 mg/dL [facility] Comment: The ADA recommends reporting an estimated Average Glucose (eAG) with all Hemoglobin A1c results using the equation derived from a study of 507 normal and diabetic adults. Minority populations were underrepresented and children were not included. (Diabetes Care 31:9928-1105, 2008). The eAG is not equivalent to a fasting glucose. Blood 09/13/2024 1:46 AM FIELD CONTROL INSPECTOR 09/13/2024 1:53 AM FIELD CONTROL INSPECTOR Result [facility] Abeba Ash MD LAB BLOOD ORDERABLES Final R esult Performing Organization Address [facility] Co de Phone Number [facility] [address] [facility] [employer] [place] [address] * (ABNORMAL) Comprehensive metabolic panel (09/13/2024 1:46 AM FIELD CONTROL INSPECTOR) Sodium 151(H) 135 - 145 mmol/L Potassium, pl 4.0 3.3 - 4.9 mmol/L [facility] Chloride 110 97 - 110 mmol/L [facility] CO2 20(L) 22 - 32 mmol/L [facility] Anion gap 21(H) 2 - 15 mmol/L [facility] BUN 47(H) 6 - 25 mg/dL [facility] Creatinine 1.47(H) 0.60 - 1.10 mg/dL [facility] Glucose 264(H) 70 - 199 mg/dL [facility] Comment: Interpretive Data Fasting glucose >/= 126 [...] 2022. Calcium 9.2 8.5 - 10.3 mg/dL [facility] Bilirubin, total 0.3 0.1 - 1.2 mg/dL [facility] Protein, pl 7.0 6.5 - 8.5 g/dL [facility] Albumin 3.4(L) 3.5 - 5.0 g/dL [facility] Alk phos 202(H) 40 - 130 Units/L [facility] ALT 48(H) 7 - 45 Units/L [facility] AST 45 10 - 45 Units/L [facility] Blood 09/13/2024 1:46 AM FIELD CONTROL INSPECTOR 09/13/2024 1:53 AM FIELD CONTROL INSPECTOR us Abeba Ash MD LAB BLOOD ORDERABLES Final R esult [facility] [address] Department [place] [address] * (ABNORMAL) POCT glucose (09/13/2024 1:30 AM FIELD CONTROL INSPECTOR) [facility] Glucose, POC 248(H) 70 - 199 mg/dL Comment: For Glucose values <35 mg/dl when Hematocrit is >60 mg/dl,the test may not accurately detect significant hypoglycemia,and testing in the Laboratory should be considered if clinically indicated. Blood 09/13/2024 1:30 AM FIELD CONTROL INSPECTOR 09/13/2024 1:30 AM FIELD CONTROL INSPECTOR Abeba Ash MD LAB POCT ORDERABLES - DEVICE Final Result Performing Organization Address [facility] Co de Phone Number [facility] [address] Department [place] [address] * (ABNORMAL) Serum lipid panel (06/26/2014 8:11 AM FIELD CONTROL INSPECTOR) Cholesterol 328(H) 40 - 199 mg/dl HISTORICAL [...] revised on 2012. Serum 06/26/2014 8:11 AM FIELD CONTROL INSPECTOR Historical Provider LAB BLOOD ORDERABLES Salma l Result HISTORICAL RESULTS * COLONOSCOPY REPORT (06/07/2014) Anatomical Region Laterality Modality Other Narrative 06/07/2014 Ordered by an unspecified provider. us Historical Provider GI PROCEDURE ORDERABLES F inal Result from Last 3 Months or Most Recently Relevant to Health Maintenance Insurance [facility] MEDICARE ADVANTAGE [facility] HEALTH PLAN [place] [employer] DIVISION [facility] MEDICARE ADVANTAGE IDPA IDPA [facility] MEDICARE ADVANTAGE Advance Directives For more information, please contact: [phone] * LIMITED - No CPR (Latest Code [...] MILLAN Daughter in Law Health Care Agent [phone] (Mobile ) Care Teams Occupational Therapist Assistant Relationship Specialty Start Date End Date Donte Lucas PA [address] [place] [address] PCP - General Physician Machine Carton Marker 08/26/24
--- OUTSIDE RECORDS SUMMARY | 2024-10-29 07:23 | XMS_ITS ---
Author Organization [facility] Address [address] [place] [address] Care Team Providers Care Sr. Manager Marketing Name Role Phone Clement Ray Primary Care Provider Unavailab mandy Benitez MD, Ugo Unavailable [phone] REASON FOR VISIT arterial duplex Encounters Encounter Location Date Provider Diagnosis [facility] [address] [place] [address] 06/28/2023 Ugo Benitez Plan Of Treatment No Information Progress Notes * Karyn MARSHALLOB:1975 ( 47 yo F)Acc No.[id number]:06/28/2023 Patient: Brooke Farrar :1975 A ge:47 Y S ex:Female Address:[address] [place], [address] * true * Date: Generated for Printi ng/Fajonathang/eTransmitting on: 0 10/29/2024 07:22 AM CDT
--- OUTSIDE RECORDS SUMMARY | 2024-10-29 07:23 | XMS_ITS ---
Author Organization [email or web address] Address [address] [place] [address] Care Team Providers Care Ocean Freight Agent Name Role Phone Clement Ray Primary Care Provider Unavailab mandy Benitez MD, Ugo Unavailable [phone] REASON FOR VISIT Pt missed appt Encounters Encounter Location Date Provider Diagnosis [facility] [address] [place] [address] 06/25/2023 Ugo Benitez Plan Of Treatment No Information Progress Notes * Karyn MARSHALLOB:1975 ( 47 yo F)Acc No.[id number]:06/25/2023 Patient: Brooke Farrar :1975 A ge:47 Y S ex:Female Address:[address] [place], [address] * true * Date: Generated for Monicai ng/Willg/eTransmitting on: 0 10/29/2024 07:22 AM CDT
--- OUTSIDE RECORDS SUMMARY | 2024-10-29 07:23 | XMS_ITS | Encounter Summary ---
Author Organization [facility] Address [address] [place] [address] Phone Care Team Providers Care Aquatic Life Laborer Name Role Phone ShadyalbertoDonte [facility] Primary Care Provider [phone] Reason for Visit * Auth/Cert (Routine) Specialty Diagnoses / Procedures Referred By Jadyn t Referred To Contact Referral ID Status Reason Start Date Expiration Date Visits Re quested Visits Authorized [id number] 1 [phone] Encounter Details Date Type Department Care Team (Latest Contact Info) Description 10/24/2024 2:00 AM CDT Home Care Visit [facility] [address] [place] [address] Mai Bass, RN [place] SN - OASIS RESUMPTION OF CARE Social History Tobacco Use Types Packs/Day Years Used Date Smoking Tobacco: Never Assessed Comments Unknown Sex and Gender Information Value Date Recorded Sex Assigned at Not on file Legal Sex 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 Gender Identity Not on file Sexual Orientation [...] Care Team ( st Contact Info) Description 11/01/2024 1:00 AM CDT [facility] [address] [place] [address] Mai Bass RN [place] 11/01/2024 2:00 PM CDT Home Care Visit [address] [address] Elisa Pollack, FRAME WIRER [place] 11/02/2024 1:00 AM CDT Home Care Visit [address] [address] Brooke Burt, CONCRETE STONE FABRICATOR [place] 11/03/2024 2:00 PM CDT [facility] [address] [place] [address] Elisa Pollack, FRAME [place]IR[place] 11/04/2024 1:00 AM CDT Home Care Visit [address] [address] Brooke Burt, [place] 11/04/2024 2:00 AM CDT Home Care Visit [address] [address] Mai Bass, RN [place] 11/07/2024 1:00 AM CDT Home Care Visit [address] [address] Elisa Pollack, [place] 11/08/2024 1:00 AM CDT Home Care Visit [address] [address] Mai Bass, RN [place] 11/09/2024 1:00 AM CDT [facility] [address] [place] [address] Brooke Burt, CONCRETE STONE FABRICATOR [place] 11/10/2024 1:00 AM CDT Home Care Visit [facility] [address] Elisa Pollack, [place]IR[place] 11/11/2024 1:00 AM CDT Home Care Visit [facility] [address] Brooke Burt, [place] 11/11/2024 2:00 AM CDT [facility] [address] [place] [address] Mai Bass, RN [place] 11/14/2024 1:00 AM CDT [facility] [address] [place] [address] Maggie Murguia, PT 11/15/2024 1:00 AM CDT [facility] [address] [place] [address] Kathrin Mcmullen OT 11/15/2024 2:00 AM CDT [facility] [address] [place] [address] Mai Bass, RN [place] 11/16/2024 1:00 AM CDT Home Care Visit [facility] [address] Elisa Pollack, [place] 11/18/2024 1:00 AM CDT [facility] [address] [place] [address] Brooke Burt O[place] 11/18/2024 2:00 AM CDT Home Care Visit [facility] [address] Mai Bass, RN [place] 11/21/2024 1:00 AM CDT [facility] [address] [place] [address] Elisa Pollack, FRAME [place]IR[place] 11/22/2024 1:00 AM CDT [facility] [address] [place] [address] Brooke Burt CONCRETE STONE FABRICATOR [place] 11/22/2024 2:00 AM CDT [facility] [address] [place] [address] Mai Bass, RN [place] 11/23/2024 1:00 AM CDT Home Care Visit [facility] [address] Elisa Pollack, FRAME [place]IR[place] 11/24/2024 1:00 AM CDT Home Care Visit [facility] [address] Brooke Burt OTA [place] 11/25/2024 1:00 AM CDT Home Care Visit [facility] [address] Mai Bass, [place] 11/28/2024 1:00 AM CDT Home Care Visit [facility] [address] Elisa Pollack, FRAME WIRER [place] 11/29/2024 1:00 AM CDT Home Care Visit [facility] [address] Mai Bass, [place] 11/30/2024 1:00 AM CDT Appointment [address] [address] Maggie Murguia, PT 12/02/2024 1:00 AM CDT Appointment [address] [address] Mai Bass, RN [place] documented as of this encounter Visit Diagnoses Not on filedocumented in this encounter Home Health Visit - Care Plan Visit Details Visit Type -SN - OASIS BILLIE Discipline -Jail Problems Problem Description Start Date Status Goals Interve ntions UTI PREVENTION Disciplines: Jail 10/24/2024 Active 1 goal linked to scheduled/documente [...] Scheduled documented in this encounter Care Teams Aquatic Life Laborer Relationship Specialty Start Date End Date Donte Lucas, PAC [address] [place], [place] [id number] PCP - General Physician Radiology Interventional Physician 10/01/24 documented as of this encounter
--- OUTSIDE RECORDS SUMMARY | 2024-10-29 07:23 | XMS_ITS ---
Author Organization [facility] Address [address] [place] [address] Care Team Providers Care Printed Circuit Boards Contact Printer Name Role Phone Clement Ray Primary Care [...] 30 Active Vitamin D (Ergocalciferol) 1.25 MG (12730 UT) Oral for 28 Active Atorvastatin Calcium [...] Negative Encounters Encounter Location Date Provider Diagnosis [address] [address] 06/25/2023 Ugo Benitez Plan Of Treatment No Information Progress Notes * Karyn MARSHALLOB:1975 ( 48 yo F)Acc No.[id number]:06/25/2023 Progress note Patient: Brooke FLOR Provider: Hazel Benitez MD :1975 A ge:47 Y S ex:Female Date:06/25/2023 Address:[address] [place], [place] [id number] Pcp:YING Rosa Subjective: * Chief Complaints: * * Medical History: H eart Cath, Blood Clots, Insomnia, Anxiety, High Cholesterol, Diabetes 2. * Surgical History: b roken femur 03/27/2021, uterous removal 1999, unsuccessful tuball , tonsils 1979, left big toe amputation 2019, eye surgeries . * Hospital[facility]/Major Diagno stic [facility], [place] , [place] [facility], [facility] 2019. * Family History: M other: , [...] , Taking Vitamin D (Ergocalciferol) 1.25 MG (13681 UT) Capsule Oral , Taking Atorvastatin Calcium [...] signature of Gary Benitez MD, MD on 10/29/2024 at 07:22 AM CDT Sign off status: Pending * Provider: Hazel Benitez MD Date: 08/25/2022 Generated for Bret garza/Irineo/J Carlos on: 0 10/29/2024 07:22 AM CDT
--- OUTSIDE RECORDS SUMMARY | 2024-10-29 07:23 | XMS_ITS | Encounter Summary ---
Author Organization [facility] Address [address] [place] [address] Care Team Providers Care Upsetter Helper Name Role Phone Rose Conn MD Unavailable Keith Goodwin MD Unavailable Ace Honeycutt MD Primary Care Provider [phone] Encounter Details Date Type Department Care Team (Late st Contact Info) Description 10/24/2024 Hospital Follow-up Call [facility] [address] [place] [address] Florinda Shanks RN Social History Tobacco Use Types Packs/Day Years Used Date Smoking Tobacco: Every Day Cigarettes Smokeless Tobacco: Never Alcohol Use Standard Drinks/Week Comments Never 0 (1 standard drink = 0.6 oz pur e alcohol) [facility] Utilities Answer Date Recorded In the past 12 months has [facility] [employer], gas, oil, or water [employer] threatened to shut off services in your [...] any time in the past 12 m [facility], were you homeless or living in a assisted (including now)? No 10/15/2024 Comments No Sex and Gender Information Value Date Recorded Sex Assigned at Female 08/31/2024 8:28 AM ESTIMATING MANAGER Legal Sex Female 8:37 PM CDT Gender [...] Assessment Author Status No 10/15/2024 12:23 PM ESTIMATING MANAGER Carolina, Jessica B, R N Active * [...] PM CDT Appointment [facility] [place] [address] Rose Conn MD [address] [place] [address] 01/10/2025 1:[address] [facility] [place] [place] [address] Rose Conn MD [address] [place] [address] 01/20/2025 3:15 PM CDT Office Visit [facility] [address] Rose Conn MD [address] [place] [address] documented as of this encounter Visit Diagnoses Not on filedocumented in this encounter Additional Health Concerns Infection Onset Date Last Indicated Resolved Time MRSA Comment:Added from external infection. Source: [employer] [place] [facility]. 12/24/2017 documented as of this encounter Care Teams Upsetter Helper Relationship Specialty Start Date End Date Ace Honeycutt MD [address] [place] [address] PCP - General FAMILY PRACTICE 04/29/24 Rose Conn MD [address] [place] [address] Consulting Physician CARDIOVASCULAR DISEASE 09/07/23 Keith Goodwin MD [address] [place] [address] Consulting Physician INTERNAL MEDICINE 09/22/23 documented as of this encounter
--- OUTSIDE RECORDS SUMMARY | 2024-10-29 07:23 | XMS_ITS | Continuity of Care Document ---
Author Organization [facility] Address [address] [place] [address] Phone Care Team Providers Care General Assembler Name Role Phone Unavailable Unavailable Unavailable Allergies, [...] ONCE DAILY - Active FreeStyle Carol 2 Savannah please issue one reader to monitor constant [...] Diagnoses Date Provider Providers Copied on [facility]counter [facility] [address] [place] [address], [address], tel:[phone] *[facility] No Information 4 No Information [facility] [address] [place] [address], [address], tel:[phone] *[facility] No Information 3 No Information [facility] [address] [place] [address], [address], tel:[phone] *[facility] Body mass index [BMI] 32.0-32.9, adult 3 No Information OFFICE/OUTPA TIENT VISIT, EST [facility], [address] [place] [address], [address], tel:[phone] *[facility] Diabetes (chief complaint)R efills (chief complaint) Chronic kidney disease, unspecified CKD stageType 2 diabetes mellitus with hyperglycemiaPa in in unspecified joint 3 No Information [facility] [address] [place] [address], [address], [place] tel:[phone] *[facility] No Information 3 No Information [facility] [address] [place] [address], [address], [place] tel:[phone] *[facility] Abnormal complete blood count 3 No Information OFFICE/OUTPA TIENT VISIT, [facility], [address] [place] [address], [address], [place] tel:[phone] *[facility] Surgery clearance (chief complaint) Body mass index [BMI] 29.0-29.9, adultType 2 diabetes mellitus with hyperglycemiaPo lyneuropathyChr onic systolic (congestive) heart failureChronic kidney disease, unspecified CKD stageAt risk for falling 3 No Information [facility] [address] [place] [address], [address], [place] tel:[phone] *[facility] No Information 3 No Information [facility] [address] [place] [address], [address], [place] tel:[phone] *[facility] Polyneuropathy 3 No Information OFFICE/OUTPA TIENT VISIT, [facility], [address] [place] [address], [address], [place] tel:[phone] *[facility] ear pain bilateral (chief complaint)c hronic conditions (chief complaint)e luke (chief complaint)s ore under left breast (chief complaint) Body mass index [BMI] 31.0-31.9, adultCellulitis of breastAcute serous otitis media, bilateralChroni c systolic (congestive) heart failurePolyneur opathyChronic pain of left knee 3 No Information [facility] [address] [place] [address], [address], [place] tel:[phone] *[facility] No Information 3 No Information OFFICE/OUTPA TIENT VISIT, [facility], [address] [place] [address], [address], tel:[phone] *[facility] pain (chief complaint)U TI (chief complaint)c hronic conditions (chief complaint) Pain in unspecified jointChronic kidney disease, unspecified CKD stageType 2 diabetes mellitus with hyperglycemiaBo dy mass index [BMI] 45.0-49.9, adultUTIChronic systolic (congestive) heart failureCardiomy opathy, unspecifiedAt risk for falling 3 No Information [facility], [address] [place] [address], [address], tel:[phone] *[facility] No Information 3 No Information OFFICE/OUTPA TIENT VISIT, [facility], [address] [place] [address], [address], tel:[phone] *[facility] New Patient (chief [...] guidance, and counseling completed Referral Referred To: [address] [place], [place], [phone] Ordered: Referrals: Oncology. [facility]. Evaluate and treat ordered Referral Ordered: tina -Nephrology (related to Type 2 diabetes mellitus with hyperglycemia) ordered Referral Referred To: tina Ordered: Referrals: Nephrology. tina. Location: [place]. Evaluate and treat ordered Referral Referred To: manda prince Ordered: Referrals: Endocrinology, Diabetes and Metabolism. [facility]. Evaluate and treat ordered Referral Ordered: [facility] -Neurology (related to Polyneuropathy) ordered Referral Referred To: [facility] Ordered: Referrals: Neurology. [facility]. Evaluate and treat ordered Referral Referred To: [facility] [address] [address] [place], [place], [phone] Ordered: Referrals: Orthopedic Surgery. [facility]. Location: [facility]. Evaluate and treat ordered Future Order: Radiol ogy Order US ABDOMEN COMPLETE ([id number]), Ordered on: Ordered Future Order: Lab Order CBC w/AU TO DIFF ([id number]), Ordered on: Ordered Future Order: Lab Order COMPREHE NSIVE METABOLIC PANEL ([id number]), Ordered on: Ordered Future Order: Lab Order GLYCOHEM OGLOBIN (A1c) ([id number]), Ordered on: Ordered Future Order: Lab Order Electroc ardiogram ([id number]), Ordered on: Ordered Future Order: Lab Order LIPID PA KAR ([id number]), Ordered on: Ordered Future Order: Lab Order THYROID STIMULATING HORMONE ([id number]), Ordered on: Ordered Future Order: Lab Order BNP (B-t ype Natriuretic Peptide) ([id number]), Sent on: Sent Future Order: Lab Order COMPREHE NSIVE METABOLIC PANEL ([id number]), Sent on: Sent Future Order: Lab Order CBC w/AU TO DIFF ([id number]), Sent on: Sent Future Order: Lab Order Electroc ardiogram ([id number]), Sent on: Sent Future Order: Radiol ogy Order CHEST 2 VW FRONT & LAT ([id number]), Sent on: Sent Future Order: Radiol ogy Order KNEE, LEFT, (1 OR 2 VIEWS) ([id number]), Ordered on: Ordered History Of Present Illness [...]
--- OUTSIDE RECORDS SUMMARY | 2024-10-29 07:23 | XMS_ITS | Clinical Summary ---
Author Organization [facility] Address [address] [place] [address] Care Team Providers Care Computer Meteorologist Name Role Phone Clement Pinto APRN-RETICLE PRINTER Primary Care Provider Source Comments [facility],non-owned Affiliates and Associated Physician Practices is amultiple site organization consisting of ambulatory clinics and hospital sitesin [place], [place], [place] and [place]. This disclosure is being madepursuant to the Care Everywhere program and may not contain all information available regarding this patient. Last updated 18.[employer] [facility] Allergies Active Allergy Reactions Criticality Noted Date [...] by mouth once daily Active HYDROcodone-acetam inophen ([facility]) 5-325 MG tabletIndications: Post-operative state Take 1 [...] age to complete this topic Care Teams Computer Meteorologist Relationship Specialty Start Date End Date Clement Pinto APRN-RETICLE PRINTER [address] [place] [phone] PCP - General Nurse Practitioner Family 05/13/23
--- OUTSIDE RECORDS SUMMARY | 2024-10-29 07:24 | XMS_ITS | Patient Health Record ---
Author Organization [email or web address] Address [address] [place] [address] Care Team Providers Care Dairy Equipment Specialist Name Role Phone Clement Ray Primary Care [...] 30 Active Vitamin D (Ergocalciferol) 1.25 MG (18179 UT) Oral for 28 Active Atorvastatin Calcium [...] Problem Status W/U Status Risk Notes Problem 6138769 Hypertensive heart disease with heart failure (I11.0) Active confirmed Well control led in office today. She does note lows at times; will try coreg at 1/2 tab BID. May ultimately have to stop beta rebecca or LOUIE-I. Would like to hold off on midodrine if possible. Problem 983834806 Ischemic cardiomyopathy (I25.5) Active confirmed LVEF 35% on las t echo in our office. Will check echo at [facility] as it has been some time. She will resume lisinopril at low dose and hopefully if compliant with that can get her on some low dose beta rebecca and maybe even Corlanor. She is definitely not an ICD candidate at this point given noncompliance. Again, very akshat discussion today. Problem 647190026 Nonrheumatic tricuspid (valve) insufficiency (I36.1) Active confirmed Problem 249716404 Chronic systolic (congestive) heart failure (I50.22) Active [...] echo at some point next year. 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 Problem 225843447 History of pulmonary embolism (Z86.711) Active confirmed We discussed th e risk of self stopping the Eliquis. will trial Xarelto. Problem 96890623 Cigarette nicotine dependence without complication (F17.210) Active confirmed The patient alamo s continue to smoke. We did spend 3-5 minutes discussing terminal worker cardiovascular benefits of cessation as well as cessation strategies. He/she will call with any cessation needs. Plan Of Treatment Future Test Test Name Order Date Magnesium, Serum 06/05/2021 Basic Metabolic Panel (8) 06/05/2021 Insurance Providers Payer Name Payer Address Payer Phone Subscriber Number Group Number Insured Name Patient Relationship to Insured Coverage Start Date Coverage End Date [employer] [place] [address] [place] [address] [id number] Brooke Garcia Self - patient is the insured [place] [address] [place] [address] [phone] [id number] Brooke Garcia Self - patient is the insured Medical (General) History Medical History History ICD Code Heart Cath Blood Clots Insomnia Anxiety High Cholesterol Diabetes 2 Surgical History Surgery Date(Month/Year) broken femur 03/27/2021 uterous removal 1999 unsuccessful tuball tonsils 1980 left big toe amputation 2019 eye surgeries Hospitalization History Reason Date(Month/Year) [facility] 03/27/2021 [place] [place] [address]
--- OUTSIDE RECORDS SUMMARY | 2024-10-29 07:24 | XMS_ITS | Encounter Summary ---
Author Organization [facility] Address [address] [place] [address] Phone Care Team Providers Care Regional Clinical Director Name Role Phone ShadyAdrian dominguezellen Byrd [facility] Primary Care Provider [phone] Reason for Visit * Auth/Cert (Routine) Specialty Diagnoses / Procedures Referred By Jadyn benitez Referred To Contact Referral ID Status Reason Start Date Expiration Date Visits Re quested Visits Authorized [id number] [id number] Encounter Details Date Type Department Care Team (Latest Contact Info) Description 10/28/2024 9:30 AM CDT [facility] [address] [place] [address] Mai Bass, RN [place] SN - PRIORITY VISIT Social History Tobacco Use Types Packs/Day Years Used Date Smoking Tobacco: Never Assessed Comments Unknown Sex and Gender Information Value Date Recorded Sex Assigned at Not on file Legal Sex Female 1:58 PM MANAGER OPERATIONS RESEARCH Gender Identity Not on file Sexual Orientation Not on file documented as of this encounter Last Filed Vital Signs Vital Sign Reading Time Taken Comments Blood Pressure 112/64 10/28/2024 9:43 AM CDT Pulse 100 10/28/2024 9:43 AM CDT Temperature 36.6 C (97.8 F) 10/28/2024 9:43 AM CDT Respiratory Rate 20 10/28/2024 9:43 AM CDT Oxygen Saturation 96% 10/28/2024 9:43 AM CDT Inhaled Oxygen Concentration - - Weight - - Height - - Body Mass Index - - documented in this encounter Plan of Treatment Upcoming Encounters Date Type Department Care Team ( st Contact Info) Description 11/01/2024 1:00 AM CDT [facility] [address] [place] [address] Mai Bass RN [place] 11/01/2024 2:00 PM CDT Home Care Visit [address] [address] Elisa Pollack, TEST ENGINEERING MANAGER [place] 11/02/2024 1:00 AM CD[facility] [address] [place] [address] Brooke Burt, PERIODONTAL ASSISTANT [place] 11/03/2024 2:00 PM CDT [facility] [address] [place] [address] Elisa Pollack, TEST ENGINEERING MANAGER [place] 11/04/2024 1:00 AM CDT Home Care Visit [address] [address] Brooke Burt, MELANIE [place] 11/04/2024 2:00 AM CDT Home Care Visit [address] [address] Mai Bass, RN [place] 11/07/2024 1:00 AM CDT Home Care Visit [address] [address] Elisa Pollack, TEST ENGINEERING MANAGER [place] 11/08/2024 1:00 AM CDT Home Care Visit [address] [address] Mai Bass, RN [place] 11/09/2024 1:00 AM CDT [facility] [address] [place] [address] Brooke Burt, PERIODONTAL ASSISTANT [place] 11/10/2024 1:00 AM CDT [facility] [address] [place] [address] Elisa Pollack, TEST ENGINEERING MANAGER [place] 11/11/2024 1:00 AM CDT Home Care Visit [address] [address] Brooke Burt, PERIODONTAL ASSISTANT [place] 11/11/2024 2:00 AM CDT [facility] [address] [place] [address] Mai Bass, RN [place] 11/14/2024 1:00 AM CDT [facility] [address] [place] [address] Maggie Murguia, PT 11/15/2024 1:00 AM CDT Home Care Visit [address] [address] Kathrin Mcmullen OT 11/15/2024 2:00 AM CDT Home Care Visit [address] [address] Mai Bass, RN [place] 11/16/2024 1:00 AM CDT Home Care Visit [address] [address] Elisa Pollack, TEST ENGINEERING MANAGER [place] 11/18/2024 1:00 AM CDT Home Care Visit [address] [address] Brooke Burt [place] 11/18/2024 2:00 AM CDT Home Care Visit [address] [address] Mai Bass, RN [place] 11/21/2024 1:00 AM CDT Home Care Visit [address] [address] Elisa Pollack, TEST ENGINEERING MANAGER [place] 11/22/2024 1:00 AM CDT Home Care Visit [address] [address] Brooke Burt [place] 11/22/2024 2:00 AM CDT Home Care Visit [facility] [address] Mai Bass, RN [place] 11/23/2024 1:00 AM CDT Home Care Visit [address] [address] Elisa Pollack, TEST ENGINEERING MANAGER [place] 11/24/2024 1:00 AM CDT Home Care Visit [address] [address] Brooke Burt OTA [place] 11/25/2024 1:00 AM CDT Home Care Visit [address] [address] Mai Bass, PADMA [place] 11/28/2024 1:00 AM CDT Home Care Visit [address] [address] Elisa Pollack, TEST ENGINEERING MANAGER [place] 11/29/2024 1:00 AM CDT Home Care Visit [address] [address] Mai Bass, RN [place] 11/30/2024 1:00 AM CDT Appointment [address] [address] Maggie Murguia, PT 12/02/2024 1:00 AM CDT Appointment [address] [address] Mai Bass, RN [place] documented as of this encounter Visit Diagnoses Not on filedocumented in this encounter Home Health Visit - Care Plan Visit Details Visit Type -SN - Priority Vi sit Discipline -Mcc Problems Problem Description Start Date Status Goals Interve ntions UTI PREVENTION Disciplines: Mcc 10/24/2024 Active 1 goal linked to scheduled/documente [...] Scheduled documented in this encounter Care Teams Regional Clinical Director Relationship Specialty Start Date End Date Donte Lucas, [facility] [address] [place], [place] [id number] PCP - General Physician Nutrition Program Instructor 10/01/24 documented as of this encounter
--- OUTSIDE RECORDS SUMMARY | 2024-10-29 07:24 | XMS_ITS | Patient Health Record ---
Author Organization [facility] [place] Address [address] [place], [place] [id number] Care Team Providers Care Credit Collections Clerk Name Role Phone Arnoldo Gary Unavailable Unavailable [...] confirmed Type II diabetes mellitus without complication (199834210) Problem Spondylosis without myelopathy or radiculopathy, lumbar region (M47.816) Active confirmed Lumbosacral spondylosis without myelopathy (25692579) Problem Spondylosis without myelopathy or radiculopathy, lumbosacral region (M47.817) Active confirmed Lumbosacral spondylosis without myelopathy (disorder) (95223614) PLAN OF TREATMENT Pending Test Test Name [...]
--- OUTSIDE RECORDS SUMMARY | 2024-10-29 07:24 | XMS_ITS | Patient Health Record ---
Author Organization [facility] Address [address] [place] [address] [place] [address] Care Team Providers Care Solutions Operator Name Role Phone Dr Arnoldo Gary Primary Care Provider Unavailab Alexi Gutierrez Unavailable [phone] REASON FOR REFERRAL No Information PLAN OF TREATMENT No Information Insurance Providers Payer Name Payer Address Payer Phone Subscriber Number Group Number Insured Name Patient Relationship to Insured Coverage Start Date Coverage End Date Home [facility] Plan [address] [place] [id number] Brooke Garcia Self - patient is the insured 2
--- OUTSIDE RECORDS SUMMARY | 2024-10-29 07:24 | XMS_ITS | Continuity of Care Document ---
Author Organization [facility] Address [address] [place] [address] Phone Care Team Providers Care Coding Support Specialist Name Role Phone Arnulfo Farrell Unavailable Unavailable Advance Directives Directive Yes / No Effective Date File Name No Information Encounters Encounter Description Practice Location Reason(s) For Visit Diagnoses Date Provider Providers Copied on Encounter [facility], [address] [place] [address], [facility], tel:[phone] *[facility] No Information Bud Arredondo. [address] [place] [address], [facility], . tel:[phone] Family History Family Member Type Diagnosis Age [...]
--- OUTSIDE RECORDS SUMMARY | 2024-10-29 07:24 | XMS_ITS | Encounter Summary ---
Author Organization [facility] Address [address] [place] [address] Care Team Providers Care Touch Up Painter Hand Name Role Phone Donte Lucas Primary Care Provider Encounter Details Date Type Department Care Team (Late st Contact Info) Description 10/28/2024 Hospital Encounter [facility] ADMIT [address] [place], [place] [id number] Trevor Rollins MD [facility] [place] [address] Social History Tobacco Use Types Packs/Day Years Used Date Smoking Tobacco: Every Day Smokeless Tobacco: Never Comments:Smoking History Pac ks/day: 1 Packs Alcohol Use Standard Drinks/Week Comments No 0 (1 standard drink = 0.6 oz pur e alcohol) [facility] Utilities Answer Date Recorded In the past 12 months has [employer] electric, gas, oil, or water company threatened to shut off services in your [...] week 09/13/2024 How often do you attend [facility] or pentecostalism services? Never 09/13/2024 Do you belong to any clubs o r organizations such as rastafarian groups, unions, fraternal or athletic groups, or [...] time in the past 12 m [facility], were you homeless or living in a skilled nursing (including now)? No 09/13/2024 Personal Safety Answer Date Recorded Have you ever been in or are you currently in a harmful physical or emotional relationship or is someone making you feel afraid or unsafe? Patient unable to answer 09/13/2024 Comments No Sex and Gender Information Value Date Recorded Sex Assigned at Not on file Legal Sex Female 11:01 PM COPRA SAMPLER Gender Identity Not on file Sexual Orientation Not on file documented as of this encounter Plan of Treatment Not on file documented as of this encounter Visit Diagnoses Not on filedocumented in this encounter Care Teams Touch Up Painter Hand Relationship Specialty Start Date End Date Donte Lucas PA [address] [place] [address] PCP - General Physician Pre Sales Technical Consultant 08/26/24 documented as of this encounter
--- OUTSIDE RECORDS SUMMARY | 2024-10-29 07:24 | XMS_ITS | Encounter Summary ---
Author Organization [facility] Healthcare Address [address] [place] [address] Care Team Providers Care Venereal Disease Investigator Name Role Phone Donte Lucas Primary Care Provider Encounter Details Date Type Department Care Team (Late st Contact Info) Description 10/28/2024 Orders Only [facility] Hospitalists [facility] [place] [address] Trevor Rollins MD [facility] [place] [address] Social History Tobacco Use Types Packs/Day Years Used Date Smoking Tobacco: Every Day Smokeless Tobacco: Never Comments:Smoking History Pac ks/day: 1 Packs Alcohol Use Standard Drinks/Week Comments No 0 (1 standard drink = 0.6 oz pur e alcohol) [facility] Utilities Answer Date Recorded In the past 12 months has [employer] electric, gas, oil, or water company threatened [...] week 09/13/2024 How often do you attend [facility] or yazidism services? Never 09/13/2024 Do you belong to any clubs o r organizations such as adventist groups, unions, fraternal or athletic groups, or [...] any time in the past 12 m [facility], were you homeless or living in a residential (including now)? No 09/13/2024 Personal Safety Answer Date Recorded Have you ever been in or are you currently in a harmful physical or emotional relationship or is someone making you feel afraid or unsafe? Patient unable to answer 09/13/2024 Comments No Sex and Gender Information Value Date Recorded Sex Assigned at Not on file Legal Sex Female 11:01 PM HVAC LEAD Gender Identity Not on file Sexual Orientation Not on file documented as of this encounter Plan of Treatment Not on file documented as of this encounter Visit Diagnoses Not on filedocumented in this encounter Care Teams Venereal Disease Investigator Relationship Specialty Start Date End Date Donte Lucas PA [address] [place] [address] PCP - General Physician Transit Planning Director 08/26/24 documented as of this encounter
--- OUTSIDE RECORDS SUMMARY | 2024-10-29 07:24 | XMS_ITS | Clinical Summary ---
Author Organization [facility] Address [address] [place] [address] Phone Care Team Providers Care Fruit Dumper Name Role Phone ShadyDonte dominguez Rochelle [facility] Primary Care Provider [phone] Allergies Active Allergy Reactions Criticality Noted Date Comments Cephalexin Rash 10/06/2024 Codeine Itching 10/06/2024 Erythromycin Vomiting 10/06/2024 Phyllantus Niruri Swelling 10/06/2024 Medications HYDROcodone-acet aminophen ([facility]) 10-325 MG Tablet Take 1 Tablet by mouth every 6 hours as needed for Mild or more severe pain. Active Fluticasone Furoate 50 MCG/ACT AEROSOL POWDER, BREATH ACTIVATED 1 Evans by Nasal route daily. Active OMEPRAZOLE PO [...] 10/28/2024 9:30 AM CDT Home Care Visit [address] [address] Mai Bass, RN SN - PRIORITY VISIT 10/27/2024 10:00 AM CDT Home Care Visit [address] [address] Elisa Pollack, AEROSPACE CONTROL AND WARNING SYSTEMS PT - HOME VISIT 10/25/2024 2:30 PM CDT Home Care Visit [address] [address] Deepika Ely, SENIOR PRODUCT CONSULTANT-SPEECH LANGUAGE PATHOLOGIST SENIOR PRODUCT CONSULTANT - INITIAL EVALUATION 10/25/2024 1:30 PM CDT Home Care Visit [address] [address] Maggie Murguia, PT PT - INITIAL EVALUATION 10/25/2024 12:30 PM CDT Home Care Visit [address] [address] Kathrin Mcmullen OT OT - INITIAL EVALUATION 10/24/2024 2:00 AM CDT Home Care Visit [address] [address] Mai Bass, RN SN - OASIS RESUMPTION OF CARE 10/24/2024 Plan of Care Documentation [address] [address] 10/24/[address] [address] Kami Mccoy, RN 10/23/[address] [address] Deepika Keith, RN Appointment 10/21/[address] [address] Ariana Callahan, RN visits 10/19/2024 Home Care Visit [address] [address] Mehnaz Hilario RN SN - OASIS TRANSFER W/OUT DC 10/14/2024 11:00 AM OVERSEER KOSHER KITCHEN Home Care Visit [address] [address] Brooke Burt OTA OT - HOME VISIT 10/14/2024 11:00 AM OVERSEER KOSHER KITCHEN Home Care Visit [facility] [address] Kathleen Clement PTA PT - HOME VISIT 10/13/2024 1:30 PM OVERSEER KOSHER KITCHEN Home Care Visit [facility] [address] Mai Bass, RN SN - PRIORITY VISIT 10/13/2024 10:00 AM OVERSEER KOSHER KITCHEN Home Care Visit [address] [address] Mercedes Pham, DISTRIBUTION OPERATIONS MANAGER DISTRIBUTION OPERATIONS MANAGER - INITIAL EVALUATION 10/12/2024 12:30 PM OVERSEER KOSHER KITCHEN Home Care Visit [facility] [address] Saima Busby, AEROSPACE CONTROL AND WARNING SYSTEMS PT - HOME VISIT 10/11/2024 11:45 AM OVERSEER KOSHER KITCHEN Home Care Visit [facility] [address] Kathrin Mcmullen OT OT - INITIAL EVALUATION 10/11/2024 8:00 AM OVERSEER KOSHER KITCHEN Home Care Visit [facility] [address] Mai Bass, RN SN - PRIORITY VISIT 10/11/2024 Home Care Visit [facility] [address] Mai Bass, RN TELEPHONE ENCOUNTER 10/11/2024 Home Care Visit [address] [address] Mai Bass, RN TELEPHONE ENCOUNTER 10/07/2024 2:00 PM OVERSEER KOSHER KITCHEN Home Care Visit [address] [address] Maggie Murguia, PT PT - INITIAL EVALUATION 10/06/2024 10:00 AM OVERSEER KOSHER KITCHEN Home Care Visit [address] [address] Mai Bass, RN SN - OASIS START OF CARE 10/06/2024 Plan of Care Documentation [address] [address] 09/12/2024 Travel from Last 3 Months Social History Tobacco Use Types Packs/Day Years Used Date Smoking Tobacco: Never Assessed Comments Unknown Sex and Gender Information Value Date Recorded Sex Assigned at Not on file Legal Sex Female 1:58 PM OVERSEER KOSHER KITCHEN Gender Identity Not on file Sexual Orientation [...] 90.7 kg (200 lb) 10/06/2024 10:43 AM OVERSEER KOSHER KITCHEN Height 165.1 cm (5' 5 ) 10/25/2024 1:15 PM CDT Body Mass Index 33.28 10/06/2024 10:43 AM OVERSEER KOSHER KITCHEN Plan of Treatment Upcoming Encounters Date Type Department Care Team (Late st Contact Info) Description 11/01/2024 1:00 AM CDT Home Care Visit [address] [address] Mai Bass RN [place] 11/01/2024 2:00 PM CDT Home Care Visit [facility] [address] Elisa Pollack, AEROSPACE CONTR[employer] WARNING SYSTEMS [place] 11/02/2024 1:00 AM CDT Home Care Visit [address] [address] Brooke Burt [place] 11/03/2024 2:00 PM CDT Home Care Visit [facility] [address] Elisa Pollack, AEROSPACE CONTROL [employer] WARNING SYSTEMS [place] 11/04/2024 1:00 AM CDT Home Care Visit [facility] [address] Brooke Burt OTA [place] 11/04/2024 2:00 AM CDT Home Care Visit [facility] [address] Mai Bass RN [place] 11/07/2024 1:00 AM CDT Home Care Visit [facility] [address] Elisa Pollack, AEROSPACE CONTROL [employer] WARNING SYSTEMS [place] 11/08/2024 1:00 AM CDT Home Care Visit [facility] [address] Mai Bass, RN [place] 11/09/2024 1:00 AM CDT Home Care Visit [facility] [address] Brooke Burt, ENGRAVER APPRENTICE DECORATIVE [place] 11/10/2024 1:00 AM CDT Home Care Visit [facility] [address] Elisa Pollack, AEROSPACE CONTROL [employer] WARNING SYSTEMS [place] 11/11/2024 1:00 AM CD[facility] [address] [place] [address] Brooke Burt, [place] 11/11/2024 2:00 AM CDT Home Care Visit [facility] [address] Mai Bass, RN [place] 11/14/2024 1:00 AM CDT Home Care Visit [facility] [address] Maggie Murguia, PT 11/15/2024 1:00 AM CDT Home Care Visit [facility] [address] Kathrin Mcmullen OT 11/15/2024 2:00 AM CDT Home Care Visit [facility] [address] Mai Bass, RN [place] 11/16/2024 1:00 AM CDT Home Care Visit [facility] [address] Elisa Pollack, AEROSPACE CONTR[employer] WARN[employer]S [place] 11/18/2024 1:00 AM CDT [facility] [address] [place] [address] Brooke Burt, [place] 11/18/2024 2:00 AM CDT Home Care Visit [facility] [address] Mai Bass, RN [place] 11/21/2024 1:00 AM CDT Home Care Visit [facility] [address] Elisa Pollack, AEROSPACE CONTROL [employer] WARNING SYSTEMS [place] 11/22/2024 1:00 AM CD[facility] [address] [place] [address] Brooke Burt, ENGRAVER APPRENTICE DECORATIVE [place] 11/22/2024 2:00 AM CDT Home Care Visit [facility] [address] Mai Bass, RN [place] 11/23/2024 1:00 AM CDT Home Care Visit [facility] [address] Elisa Pollack, AEROSPACE CONTROL AND WARNING SYSTEMS [place] 11/24/2024 1:00 AM CDT Home Care Visit [facility] [address] Brooke Burt, [place] 11/25/2024 1:00 AM CDT Home Care Visit [facility] [address] Mai Bass, RN [place] 11/28/2024 1:00 AM CDT Home Care Visit [facility] [address] Elisa Pollack, A[employer] WARN[employer] [place] 11/29/2024 1:00 AM CDT Home Care Visit [facility] [address] Mai Bass, RN [place] 11/30/2024 1:00 AM CDT Appointment [address] [address] Maggie Murguia, PT 12/02/2024 1:00 AM CDT Appointment [address] [address] Mai Bass, RN [place] Insurance [place]ICA[place] MEDICARE C [employer] on file Advance Directives * Full Code (Latest Code Status on File) Date Activated Date Inactivated Comments 10/06/2024 10:06 PM Care Teams Fruit Dumper Relationship Specialty Start Date End Date Donte Lucas PAC [address] [place] [address] PCP - General Physician Frame Opener 10/01/24
--- OUTSIDE RECORDS SUMMARY | 2024-10-29 07:24 | XMS_ITS | Clinical Summary ---
Author Organization [facility] Address [address] [place] [address] Care Team Providers Care Community Life Director Name Role Phone Rose Conn MD Unavailable Keith Goodwin MD Unavailable Ace Honeycutt MD Primary Care Provider [phone] Allergies Active Allergy Reactions Criticality Noted Date [...] Blood Gluc Sensor (FREESTYLE DUONG 2 SENSOR) [facility] 024 Active REGRANEX 0.01 % Gel APPLY [...] CONCENTRATOR SUPPLY, DME,Indications :CHF (congestive heart failure) ([facility]) 1 Device by Nasal route continuous. Nasal [...] Problem Noted Date Diagnosed Date CHF exacerbation (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) 09/15/2023 Diabetic ulcer of right heel associated with type 2 diabetes mellitus, limited to breakdown of skin ([facility]) Encounters Date Type Department Care Team Description 10/24/2024 Hospital Follow-up Call [facility] [address], [place] [id number] Florinda Shanks RN 10/19/2024 Travel 10/15/2024 12:14 PM MINE PROMOTOR - 10/20/2024 4:19 PM CDT Hospital Encounter [facility] [address] [place] [address] Balaji Woodward MD Boddu, Lavanya, MD Discharge Disposition: Home or Self Care (Routine Discharge) 10/14/2024 7:19 PM MINE PROMOTOR Anesthesia Event [facility] [address] [place] [address] Jeffery Escobar CRNA 10/14/2024 4:10 PM MINE PROMOTOR - 10/15/2024 11:11 AM MINE PROMOTOR Hospital Encounter [facility] [address] [place] [address] [place] [address] Matt Mixon, Lorenza Mendez MD Breathing Problem Discharge Disposition: Transfer to [facility] 10/14/2024 Travel 09/11/2024 12:52 PM MINE PROMOTOR - 09/12/2024 11:41 PM MINE PROMOTOR Emergency [facility] [address] [place] [address] [place] [address] Malena Cortez MD Sprague, Robert, DO Nausea Discharge Disposition: Transfer to [facility] 09/11/2024 Travel 08/31/2024 9:00 AM MINE PROMOTOR Office Visit [facility] [address] Pavithra Mclean MD Gallbladder (DUPLICATE MAKER, gallstones) 08/31/2024 Travel 08/23/2024 Abstract [facility] [address] [place] [address] Abstract, Doc Pccl 08/19/2024 7:19 AM MINE PROMOTOR - 08/19/2024 10:06 AM MINE PROMOTOR Emergency [facility] [address] [place] [address] [place] [address] Marciano Mora DO Abdominal Pain; Edema Discharge Disposition: Home or Self Care (Routine Discharge) 08/19/2024 Travel 08/12/2024 Transcribe Orders [facility] Pre Access Team [address] [place] [address] Pravin Oneill NP 08/01/2024 11:13 AM MINE PROMOTOR - 08/01/2024 11:59 PM MINE PROMOTOR Hospital Encounter [facility] [address] [place] [address] Lorenaz Inman MD Discharge Disposition: Home or Self Care (Routine Discharge) 08/01/2024 Orders Only [facility] [address] [place] [address] Pravin Oneill NP 08/01/2024 Travel from Last [...] = 0.6 oz pur e alcohol) [facility] Utilities Answer Date Recorded In the past 12 months has [facility] [employer] gas, oil, or water [employer] threatened to shut off services in your [...] any time in the past 12 m [facility], were you homeless or living in a retirement (including now)? No 10/15/2024 Comments No Sex and Gender Information Value Date Recorded Sex Assigned at Female 08/31/2024 8:28 AM MINE PROMOTOR Legal Sex Female 8:37 PM CDT Gender [...] Appointment [facility] [address] [place] [address] Rose Conn MD [address] [place] [address] 01/10/2025 1:30 PM CDT Appointment [facility] [address] [place], [place] [address] [address] Rose Conn MD [address] [place], [place] [id number] 01/20/2025 3:15 PM CDT Office Visit [facility] [address] [place] [address] Rose Conn MD [address], [place] [id number] Health Maintenance Due Date Last Done Comments [...] series) 1993 Mammogram Screening 2014 COVID-19 Vaccine ( - 2023- season) 2024 Influenza Adult (#1) 2024 PHQ-2 (Physician Barton) 08/10/2024 ASCVD LDL 09/15/2024 09/15/2023 Lipid Panel [...] RED BLOOD CELLS Routine 10/16/2024 12:45 AM MINE PROMOTOR POCT GLUCOSE - CHISHOLM DOCKED DEVICE Routine 10/16/2024 12:11 AM MINE PROMOTOR HC BLOOD TYPING ABO Routine 10/15/2024 8:00 PM MINE PROMOTOR HEMOGLOBIN AND HEMATOCRIT Routine 10/15/2024 8:00 PM MINE PROMOTOR TROPONIN, QUANT Routine 10/15/2024 8:00 PM MINE PROMOTOR POCT GLUCOSE - CHISHOLM DOCKED DEVICE Routine 10/15/2024 7:[address] ABD+PEL WO CON STAT 10/15/2024 6:00 PM MINE PROMOTOR CULTURE, BACTERIA, BLOOD Routine 10/15/2024 3:43 PM MINE PROMOTOR TYPE & SCREEN Routine 10/15/2024 3:43 PM MINE PROMOTOR PROTHROMBIN TIME, VENOUS Routine 10/15/2024 3:43 PM MINE PROMOTOR CBC W/DIFF AUTOMATED Routine 10/15/2024 3:43 PM MINE PROMOTOR CALCIUM, IONIZED Routine 10/15/2024 3:43 PM MINE PROMOTOR HEPATIC FUNCTION PANEL Routine 10/15/2024 3:43 PM MINE PROMOTOR THYROID STIM HORMONE TSH Routine 10/15/2024 3:43 PM MINE PROMOTOR PHOSPHORUS, INORGANIC PHOSPHATE Routine 10/15/2024 3:43 PM MINE PROMOTOR LACTIC ACID Routine 10/15/2024 3:43 PM MINE PROMOTOR MAGNESIUM Routine 10/15/2024 3:43 PM MINE PROMOTOR TROPONIN, QUANT Routine 10/15/2024 3:43 PM MINE PROMOTOR BASIC METABOLIC PANEL Routine 10/15/2024 3:43 PM MINE PROMOTOR PRO-BRAIN NATRIURETIC PEPTIDE STAT 10/15/2024 3:43 PM MINE PROMOTOR US RETROPERITONEAL LTD Today 10/15/2024 3:21 PM MINE PROMOTOR POCT GLUCOSE - CHISHOLM DOCKED DEVICE Routine 10/15/2024 3:07 PM MINE PROMOTOR USE ECHOCARDIOGRAM W CON Routine 10/15/2024 2:34 PM MINE PROMOTOR CULTURE LOWER RESPIRATORY W/GRAM STAIN Nurse Collected Priority 10/15/2024 2:20 PM MINE PROMOTOR XR CHEST PORTABLE Routine 10/15/2024 1:43 PM MINE PROMOTOR RESPIRATORY PCR PANEL 2 Nurse Collected Priority 10/15/2024 1:32 PM MINE PROMOTOR ECG 12-LEAD STAT 10/15/2024 1:14 PM MINE PROMOTOR MRSA SCREENING Nurse Collected Priority 10/15/2024 12:54 PM MINE PROMOTOR HC URINALYSIS AUTO W/MICRO Nurse Collected Priority 10/15/2024 12:54 PM MINE PROMOTOR URINE BACTERIA CULTURE Nurse Collected Priority 10/15/2024 12:53 PM MINE PROMOTOR POCT GLUCOSE - CHISHOLM DOCKED DEVICE Routine 10/15/2024 12:37 PM MINE PROMOTOR POCT GLUCOSE - CHISHOLM DOCKED DEVICE Routine 10/15/2024 11:02 AM MINE PROMOTOR ECG 12-LEAD Routine 10/15/2024 9:32 AM MINE PROMOTOR CARDIAC PROFILE Routine 10/15/2024 9:20 AM MINE PROMOTOR BLOOD GAS, VENOUS STAT 10/15/2024 8:37 AM MINE PROMOTOR XR CHEST PORTABLE STAT 10/15/2024 8:32 AM MINE PROMOTOR TRANSFUSE RED BLOOD CELLS Routine 10/15/2024 8:20 AM MINE PROMOTOR TYPE & SCREEN Routine 10/15/2024 5:17 AM MINE PROMOTOR LACTIC ACID STAT 10/15/2024 5:17 AM MINE PROMOTOR POCT GLUCOSE - CHISHOLM DOCKED DEVICE Routine 10/15/2024 4:37 AM MINE PROMOTOR FOLIC ACID SERUM Routine 10/15/2024 4:24 AM MINE PROMOTOR VITAMIN B-12 Routine 10/15/2024 4:24 AM MINE PROMOTOR RETICULOCYTE CT, AUTO Routine 10/15/2024 4:24 AM MINE PROMOTOR FERRITIN Routine 10/15/2024 4:24 AM MINE PROMOTOR IRON SAT PANEL (IRON,IBC,%SAT) Routine 10/15/2024 4:24 AM MINE PROMOTOR COMPREHENSIVE METABOLIC PANEL STAT 10/15/2024 4:24 AM MINE PROMOTOR CBC W/DIFF AUTOMATED STAT 10/15/2024 4:24 AM MINE PROMOTOR POCT GLUCOSE - CHISHOLM DOCKED DEVICE Routine 10/14/2024 11:39 PM MINE PROMOTOR URINE BACTERIA CULTURE STAT 10/14/2024 8:10 PM MINE PROMOTOR HC URINALYSIS AUTO W/MICRO STAT 10/14/2024 8:10 PM MINE PROMOTOR IV PLACEMENT Routine 10/14/2024 7:00 PM MINE PROMOTOR CULTURE, BACTERIA, BLOOD Routine 10/14/2024 6:42 PM MINE PROMOTOR CULTURE, BACTERIA, BLOOD Routine 10/14/2024 6:37 PM MINE PROMOTOR XR CHEST PA+LAT STAT 10/14/2024 5:26 PM MINE PROMOTOR PRO-BRAIN NATRIURETIC PEPTIDE STAT 10/14/2024 5:09 PM MINE PROMOTOR MAGNESIUM STAT 10/14/2024 5:09 PM MINE PROMOTOR COMPREHENSIVE METABOLIC PANEL STAT 10/14/2024 5:09 PM MINE PROMOTOR CBC W/DIFF AUTOMATED STAT 10/14/2024 5:09 PM MINE PROMOTOR BLOOD GAS, ARTERIAL LAB STAT 10/14/2024 4:56 PM MINE PROMOTOR POCT GLUCOSE - CHISHOLM DOCKED DEVICE Routine 10/14/2024 4:44 PM MINE PROMOTOR POCT GLUCOSE - CHISHOLM DOCKED DEVICE Routine 09/12/2024 11:33 PM MINE PROMOTOR POCT GLUCOSE - CHISHOLM DOCKED DEVICE Routine 09/12/2024 10:56 PM MINE PROMOTOR BLOOD GAS, ARTERIAL LAB STAT 09/12/2024 10:33 PM MINE PROMOTOR ECG 12-LEAD Routine 09/12/2024 10:25 PM MINE PROMOTOR POCT GLUCOSE - CHISHOLM DOCKED DEVICE Routine 09/12/2024 9:49 PM MINE PROMOTOR BLOOD GAS, ARTERIAL LAB STAT 09/12/2024 9:06 PM MINE PROMOTOR BETA-HYDROXYBUTYRATE STAT 09/12/2024 9:06 PM MINE PROMOTOR BASIC METABOLIC PANEL STAT 09/12/2024 9:06 PM MINE PROMOTOR POCT GLUCOSE - CHISHOLM DOCKED DEVICE Routine 09/12/2024 8:48 PM MINE PROMOTOR PARTIAL THROMBOPLASTIN TIME,PTT STAT 09/12/2024 8:20 PM MINE PROMOTOR COMPREHENSIVE METABOLIC PANEL STAT 09/12/2024 6:34 PM MINE PROMOTOR ECG 12-LEAD STAT 09/12/2024 6:33 PM MINE PROMOTOR TROPONIN, QUANT STAT 09/12/2024 6:[address] HEAD WO CON STAT 09/12/2024 6:27 PM MINE PROMOTOR XR CHEST PORTABLE STAT 09/12/2024 6:27 PM MINE PROMOTOR PARTIAL THROMBOPLASTIN TIME,PTT STAT 09/12/2024 2:23 PM MINE PROMOTOR ECG 12-LEAD Routine 09/12/2024 10:41 AM MINE PROMOTOR PARTIAL THROMBOPLASTIN TIME,PTT STAT 09/12/2024 6:18 AM MINE PROMOTOR PROTHROMBIN TIME, VENOUS STAT 09/12/2024 6:18 AM MINE PROMOTOR CBC W/DIFF AUTOMATED STAT 09/12/2024 6:18 AM MINE PROMOTOR HEPARIN, ANTI XA, UFH STAT 09/12/2024 6:17 AM MINE PROMOTOR POCT GLUCOSE - [employer] DOCKED DEVICE Routine 09/12/2024 3:18 AM MINE PROMOTOR PARTIAL THROMBOPLASTIN TIME,PTT STAT 09/12/2024 12:16 AM MINE PROMOTOR PARTIAL THROMBOPLASTIN TIME,PTT STAT 09/11/2024 4:02 PM MINE PROMOTOR CULTURE, BACTERIA, BLOOD STAT 09/11/2024 3:53 PM MINE PROMOTOR TROPONIN, QUANT TIMED 09/11/2024 3:[address] CHEST+ABD+PEL WO CON STAT 09/11/2024 1:56 PM MINE PROMOTOR PROTHROMBIN TIME, VENOUS STAT 09/11/2024 1:39 PM MINE PROMOTOR HEPARIN, ANTI XA, UFH STAT 09/11/2024 1:39 PM MINE PROMOTOR BLOOD GAS, VENOUS STAT 09/11/2024 1:39 PM MINE PROMOTOR MAGNESIUM STAT 09/11/2024 1:39 PM MINE PROMOTOR LACTIC ACID W REFLEX (SEPSIS) STAT 09/11/2024 1:39 PM MINE PROMOTOR TROPONIN, QUANT STAT 09/11/2024 1:39 PM MINE PROMOTOR COMPREHENSIVE METABOLIC PANEL STAT 09/11/2024 1:39 PM MINE PROMOTOR CBC W/DIFF AUTOMATED STAT 09/11/2024 1:39 PM MINE PROMOTOR POCT GLUCOSE - CHISHOLM DOCKED DEVICE Routine 09/11/2024 1:37 PM MINE PROMOTOR ECG 12-LEAD Routine 09/11/2024 1:32 PM MINE PROMOTOR URINE BACTERIA CULTURE STAT 09/11/2024 1:12 PM MINE PROMOTOR HC URINALYSIS AUTO W/MICRO STAT 09/11/2024 1:12 PM MINE PROMOTOR HC URINALYSIS AUTO W/MICRO STAT 08/19/2024 9:04 AM MINE PROMOTOR POCT GLUCOSE - CHISHOLM DOCKED DEVICE Routine 08/19/2024 8:54 AM MINE PROMOTOR XR CHEST PORTABLE STAT 08/19/2024 8:[address] ABD+PEL WO CON STAT 08/19/2024 8:07 AM MINE PROMOTOR PRO-BRAIN NATRIURETIC PEPTIDE STAT 08/19/2024 8:01 AM MINE PROMOTOR TROPONIN, QUANT STAT 08/19/2024 8:01 AM MINE PROMOTOR LIPASE STAT 08/19/2024 8:01 AM MINE PROMOTOR AMYLASE STAT 08/19/2024 8:01 AM MINE PROMOTOR COMPREHENSIVE METABOLIC PANEL STAT 08/19/2024 8:01 AM MINE PROMOTOR CBC W/DIFF AUTOMATED STAT 08/19/2024 8:01 AM MINE PROMOTOR ECG 12-LEAD STAT 08/19/2024 7:48 AM MINE PROMOTOR COMPREHENSIVE METABOLIC PANEL Routine 08/01/2024 11:40 AM MINE PROMOTOR Alkaline phosphatase elevation LIPID PANEL Routine 09/15/2023 9:04 AM MINE PROMOTOR Familial hypercholesterolemia from Last 3 Months or Most Recently Relevant to Health Maintenance Results * (ABNORMAL) CBC W/DIFF AUTOMATED (10/20/2024 1:58 PM CDT) Only the most recent of9 resultswithin the time period is included. WBC 10.26 4.00 - 10.80 x10'3/uL 10/20/2024 2:15 PM CDT [facility] RBC 3.11(L) 4.10 - 5.40 x10'6/uL 10/20/2024 2:15 PM CDT [facility] HGB 8.8(L) 12.0 - 16.0 G/DL 10/20/2024 2:15 PM CDT [facility] HCT 29.2(L) 36.0 - 47.0 % 10/20/2024 2:15 PM CDT [facility] MCV 93.9 78.0 - 100.0 FL 10/20/2024 2:15 PM CDT [facility] MCH 28.3 27.0 - 31.0 PG 10/20/2024 2:15 PM CDT [facility] MCHC 30.1(L) 33.0 - 36.0 G/DL 10/20/2024 2:15 PM CDT [facility] RDW 18.4(H) 11.5 - 14.5 % 10/20/2024 2:15 PM CDT [facility] PLT 256 150 - 350 x10'3/uL 10/20/2024 2:15 PM CDT [facility] MPV 10.8(H) 7.4 - 10.4 FL 10/20/2024 2:15 PM CDT [facility] DIFFERENTIAL TYPE AUTOMATED DIFFERENTIAL 10/20/2024 2:15 PM CDT [facility] SEG NEUTROPHILS 72.9 % 2:15 PM CDT [facility] LYMPHOCYTES 15.0 % 10/20/2024 2:15 PM CDT [facility] MONOCYTES 9.4 % 10/20/2024 2:15 PM CDT [facility] EOSINOPHILS 2.0 % 10/20/2024 2:15 PM CDT [facility] BASOPHILS 0.1 % 10/20/2024 2:15 PM CDT [facility] IMMATURE GRANS % 0.6 % 10/21/19 2:15 PM CDT [facility] ABS. NEUTROPHILS 7.48 1.60 - 8.30 x10'3/uL 10/20/2024 2:15 PM CDT [facility] ABS. LYMPHOCYTES 1.54 0.80 - 4.70 x10'3/uL 10/20/2024 2:15 PM CDT [facility] ABS. MONOCYTES 0.96 0.00 - 1.50 x10'3/uL 10/20/2024 2:15 PM CDT [facility] ABS. EOSINOPHILS 0.21 0.00 - 0.40 x10'3/uL 10/20/2024 2:15 PM CDT [facility] ABS. BASOPHILS 0.01 0.00 - 0.20 x10'3/uL 10/20/2024 2:15 PM CDT [facility] ABS. IMMATURE GRANULOCYTES 0.06(H) 0.00 - 0.03 x10'3/uL 10/20/2024 2:15 PM CDT [facility] ABS. NUCLEATED RBC'S 0.00 0.00 - 0.01 x10'3/uL 10/20/2024 2:15 PM CDT [facility] NRBC % 0.0 % 10/20/2024 2:15 PM CDT [facility] 10/20/2024 1:58 PM CDT Mari Galeas MD LABORATORY Final Result Performing Organization Address [facility] Co de Phone Number [facility] [address] [place] [address], [phone] * IMMUNOFIXATION, URINE (10/20/2024 11:30 AM CDT) IMMUNOFIXATION URINE SEE PATHOLOGIST'S INTERPRETATION 10/21/2024 12:52 PM CDT [facility] IMMUNOFIXATION INTERPRETATION (U) THIS URINE IMMUNOTYPING WAS INTERPRETED BY 10/24/2024 10:22 AM CDT [facility] Comment: MD PATTY MAGANA PROTEIN NOT DETECTED. 10/20/2024 11:3 0 AM CDT Maris Aguilar DUPLICATE MAKER URINE ORDERABLES Final R esult Performing Organization Address [facility] Co de Phone Number [facility] [address] [place] [address], [phone] * (ABNORMAL) PROTEIN ELECTROPHORESIS URINE RANDOM (10/20/2024 11:30 AM CDT) PROTEIN URINE TOTAL RANDOM 14.5(H) <12.0 MG/DL 10/21/2024 12:51 PM CDT [facility] INTERPRETATION THIS URINE PEP WAS INTERPRETED BY 10/24/2024 10:20 AM CDT [facility] Comment: DR PAVITHRA FLORENCE MD NO SIGNIFICANT RANDOM PROTEINURIA. THERE IS A TRACE OF ALBUMIN ON ELECTROPHORESIS. BENCE ABRAHAM PROTEIN IS NOT DETECTED. URINE SPECIMEN / Unknown 10/20/2024 11:30 AM CDT us Maris Aguilar DUPLICATE MAKER URINE ORDERABLES Final R esult [facility] [address] [place] [address], [id number] * (ABNORMAL) URINALYSIS (10/20/2024 11:30 AM CDT) Only the most recent of5 resultswithin the time period is included. COLOR (U) LIGHT YELLOW 10/20/2024 11:59 AM CDT [facility] TRANSPARENCY CLEAR 10/20/2024 11:59 AM CDT [facility] SPECIFIC GRAVITY (U) 1.012 1.002 - 1.035 10/20/2024 11:59 AM CDT [facility] U PH 7.0 5 - 8 10/20/2024 11:59 AM CDT [facility] PROTEIN RANDOM (U) NEGATIVE NEGATIVE 10/20/2024 11:59 AM CDT [facility] GLUCOSE (U) 100(A) NEGATIVE MG/DL 10/20/2024 11:59 AM CDT [facility] KETONES MG/DL (U) NEGATIVE NEGATIVE 10/20/2024 11:59 AM CDT [facility] BILIRUBIN (U) NEGATIVE NEGATIVE 10/20/2024 11:59 AM CDT [facility] BLOOD (U) 1+(A) NEGATIVE 10/20/2024 11:59 AM CDT [facility] NITRITES NEGATIVE NEGATIVE 10/20/2024 11:59 AM CDT [facility] UROBILINOGEN NORMAL 0 - 1 EU/DL 10/20/2024 11:59 AM CDT [facility] LEUKOCYTES (U) 1+(A) NEGATIVE 10/20/2024 11:59 AM CDT [facility] RBC/HPF 21(H) 0 - 3 /HPF 10/20/2024 11:59 AM CDT [facility] WBC/HPF 3 0 - 6 /HPF 10/20/2024 11:59 AM CDT [facility] BACTERIA (U) NONE /HPF 10/20/2024 11:59 AM CDT [facility] SQUAMOUS EPITHELIALS 12 10/20/2024 11:59 AM CDT [facility] BUDDING YEAST PRESENT 10/20/2024 11:59 AM CDT [facility] HYALINE CASTS 8 10/20/2024 11:59 AM CDT [facility] URINE SPECIMEN OBTAINED BY CLEAN CATCH PROCEDURE / Unknown 10/20/2024 11:30 AM CDT us Mari Galeas MD URINE ORDERABLES Final Result Performing Organization Address City/[facility]/ZIP Co de Phone Number [facility] [address] [place] [address], [phone] * (ABNORMAL) POCT glucose (10/20/2024 11:20 AM CDT) Only the most recent of34 resultswithin the time period is included. GLUCOSE POC 185(H) 70 - 109 10/20/2024 11:24 AM CDT [facility] 10/20/2024 11:2 0 AM CDT us Mari Galeas MD POCT ORDERABLES - DEVICE Final Result Performing Organization Address City/[facility]/ZIP Co de Phone Number [facility] [address] [place] [address], [phone] * (ABNORMAL) BASIC METABOLIC PANEL (10/20/2024 2:30 AM CDT) Only the most recent of8 resultswithin the time period is included. SODIUM S/P/B 139 136 - 145 MMOL/L 10/20/2024 3:22 AM CDT [facility] POTASSIUM S/P/B 4.0 3.5 - 5.1 MMOL/L 10/20/2024 3:22 AM CDT [facility] CHLORIDE S/P/B 105 97 - 115 MMOL/L 10/20/2024 3:22 AM CDT [facility] CO2 27.8 21.0 - 32.0 MMOL/L 10/20/2024 3:22 AM CDT [facility] GLUCOSE 242(H) 74 - 106 MG/DL 10/20/2024 3:22 AM CDT [facility] BUN 52(H) 7 - 18 MG/DL 10/20/2024 3:22 AM CDT [facility] CREATININE S/P/B 1.71(H) 0.55 - 1.02 MG/DL 10/20/2024 3:22 AM CDT [facility] CALCIUM S/P/B 8.6 8.5 - 10.1 MG/DL 10/20/2024 3:22 AM CDT [facility] ANION GAP 6.2 2.0 - 10.0 MMOL/L 10/20/2024 3:22 AM T [facility] OSMOLALITY (CALC) 310 MOSM/KG 025 3:22 AM T [facility] Comment:REFERENCE RANGE NOT ESTABLISHED GFR ESTIMATE 36(L) >90 ML/MIN/1. 73 M2 10/20/2024 3:22 AM T [facility] GFR NOTES GFR REFERENCE S: 10/20/2024 3:22 AM T [facility] Comment: THE ESTIMATED GFR IS CALCULATED USING THE 2021 CKD-EPI EQUATION. THE FOLLOWING CATEGORIES FOR GRADING [...] MD LABORATORY Final Result Performing Organization Address [facility] Co de Phone Number [facility] [address] [place] [address], [phone] * MAGNESIUM (10/20/2024 2:30 AM CDT) Only the most recent of9 resultswithin the time period is included. MAGNESIUM 2.0 1.6 - 2.6 MG/DL 10/20/2024 3:22 AM CDT [facility] 10/20/2024 2:30 AM CDT us Balaji Bartlett MD LABORATORY Final Result Performing Organization Address [facility] Co de Phone Number [facility] [address] [place] [address], [phone] * (ABNORMAL) RENAL FUNCTION PANEL (10/19/2024 11:44 PM CDT) Only the most recent of2 resultswithin the time period is included. SODIUM S/P/B 137 136 - 145 MMOL/L 10/20/2024 12:35 AM CDT [facility] POTASSIUM S/P/B 4.0 3.5 - 5.1 MMOL/L 10/20/2024 12:35 AM [facility] CHLORIDE S/P/B 103 97 - 115 MMOL/L 10/20/2024 12:35 AM [facility] CO2 27.7 21.0 - 32.0 MMOL/L 10/20/2024 12:35 AM [facility] GLUCOSE 303(H) 74 - 106 MG/DL 10/20/2024 12:35 AM [facility] BUN 52(H) 7 - 18 MG/DL 10/20/2024 12:35 AM [facility] CREATININE S/P/B 1.78(H) 0.55 - 1.02 MG/DL 10/20/2024 12:35 AM [facility] CALCIUM S/P/B 8.8 8.5 - 10.1 MG/DL 10/20/2024 12:35 AM [facility] ALBUMIN S/P/B 2.5(L) 3.4 - 5.0 G/DL 10/20/2024 12:35 AM [facility] PHOSPHORUS 2.8 2.5 - 4.9 MG/DL 10/20/2024 12:35 AM [facility] ANION GAP 6.3 2.0 - 10.0 MMOL/L 10/20/2024 12:35 AM [facility] OSMOLALITY (CALC) 309 MOSM/KG 025 12:35 AM [facility] Comment:REFERENCE RANGE NOT ESTABLISHED GFR ESTIMATE 35(L) >90 ML/MIN/1. 73 M2 10/20/2024 12:35 AM [facility] GFR NOTES GFR REFERENCE S: 10/20/2024 12:35 AM [facility] Comment: THE ESTIMATED GFR [...] 10/19/2024 11:4 4 PM CDT Maris Aguilar [facility] Final Re sult Performing Organization Address [facility] Co de Phone Number [facility] [address] [place] [address], [phone] * (ABNORMAL) ALBUMIN URINE RANDOM W/CREATININE (10/19/2024 4:19 PM CDT) Only the most recent of2 resultswithin the time period is included. ALBUMIN (U) 1.3 MG/DL 10/19/2024 5:08 PM CDT [facility] CREATININE (U) 40.4 MG/DL 10/19/2024 5:08 PM CDT [facility] Comment:REFERENCE RANGE NOT ESTABLISHED MICROALBUMIN (U) 31.4(H) <25.0 MG/G 10/20/19 25 5:08 PM CDT [facility] URINE SPECIMEN / Unknown 10/19/2024 4:19 PM CDT Maris Aguilar [employer] URINE ORDERABLES Final R esult Performing Organization Address [facility]/ZIP Co de Phone Number [facility] [address] [place] [address], [phone] * USV JUSTIN DUPLEX LOW EXT MANPREET (10/19/2024 3:17 PM CDT) Anatomical Region Laterality Modality Extremity Ultrasound 10/19/2024 2:22 PM CDT Narrative 10/20/2024 8:33 AM CDT Vascular Report Pat.Name: CEM MARSHALL Pat.ID: [id number] St.Date: 10/19/2024 Refer.MD: MARI GALEAS Exam Time: 2:22:00 PM Study Type:PVI VENOUS DUPLEX SCAN-LEGS BILAT Height: 65 in Age: 5 1975,48Y Sex: F Sonogrphr: Rene Christiansen [facility] Pat. Stat.:Inpatient Room: 504 ICD - 9: M79.89 Swelling of limb CPT - 4: 29946 Venous Duplex LE/UE Reason for Study:Lower limb swelling Race: W ++++++++++++++++++++++++++++++++++++ FINDINGS: ++++++++++++++++++++++++++++++++++++ Bilat: No evidence of acute or chronic thrombosis noted in the deep or superficial veins in either lower extremity. Comments: Technically difficult study due to inability to position. <Electronic Signature> 10/20/2024 08:33 AM Roes Conn M.D. Procedure Note Rose Conn MD - 10/20/2024 Vascular Report Pat.Name: CEM MARSHALL Pat.ID: [id number] St.Date: 10/19/2024 Refer.MD: MARI GALEAS Exam Time: 2:22:00 PM Study Type:PVI VENOUS DUPLEX SCAN-LEGS BILAT Height: 65 in Age: 5 1975,48Y Sex: F Sonogrphr: Rene Christiansen [facility] Pat. Stat.:Inpatient Room: 504 ICD - 9: M79.89 Swelling of limb CPT - 4: 77955 Venous Duplex LE/UE Reason for Study:Lower limb swelling Race: W ++++++++++++++++++++++++++++++++++++ FINDINGS: ++++++++++++++++++++++++++++++++++++ Bilat: No evidence of acute or chronic thrombosis noted in the deep or superficial veins in either lower extremity. Comments: Technically difficult study due to inability to position. <Electronic Signature> 10/20/2024 08:33 AM Rose Conn M.D. Mari Galeas MD [place] Final Result * (ABNORMAL) CBC, AUTO, NO DIFF (10/18/2024 3:09 AM CDT) Only the most recent of3 resultswithin the time period is included. WBC 11.15(H) 4.00 - 10.80 x10'3/uL 10/18/2024 3:17 AM CDT [facility] RBC 3.07(L) 4.10 - 5.40 x10'6/uL 10/18/2024 3:17 AM CDT [facility] HGB 8.9(L) 12.0 - 16.0 G/DL 10/18/2024 3:17 AM CDT [facility] HCT 28.8(L) 36.0 - 47.0 % 10/18/2024 3:17 AM CDT [facility] MCV 93.8 78.0 - 100.0 FL 10/18/2024 3:17 AM CDT [facility] MCH 29.0 27.0 - 31.0 PG 10/18/2024 3:17 AM CDT [facility] MCHC 30.9(L) 33.0 - 36.0 G/DL 10/18/2024 3:17 AM CDT [facility] RDW 19.1(H) 11.5 - 14.5 % 10/18/2024 3:17 AM CDT [facility] PLT 284 150 - 350 x10'3/uL 10/18/2024 3:17 AM CDT [facility] MPV 10.9(H) 7.4 - 10.4 FL 10/18/2024 3:17 AM CDT [facility] 10/18/2024 3:09 AM CDT Segundo Storm MD LABORATORY Final Result Performing Organization Address City/[facility] Co de Phone Number [facility] [address] [place] [address], [place] [phone] * PHOSPHORUS, INORGANIC PHOSPHATE (10/18/2024 3:09 AM CDT) Only the most recent of4 resultswithin the time period is included. PHOSPHORUS 4.5 2.5 - 4.9 MG/DL 10/18/2024 3:50 AM CDT [facility] 10/18/2024 3:09 AM CDT Segundo Storm MD LABORATORY Final Result Performing Organization Address [facility] de Phone Number [facility] [address] [place] [address], [place] [phone] * CULTURE, BACTERIA BLOOD (10/17/2024 2:27 PM CDT) Only the most recent of5 resultswithin the time period is included. SPEC DESCRIPTION BLOOD 10/18/19 25 2:34 PM CDT [facility] SPECIAL REQUESTS BLOOD-AERO BIC BOTTLE ONLY 10/17/2024 2:34 PM CDT [facility] CULTURE RESULT NO GROWTH 5 DAYS 10/22/2024 2:36 PM CDT [facility] BLOOD SPECIMEN OBTAINED FOR BLOOD CULTURE / Unknown 10/17/2024 2:27 PM CDT 10/17/2024 2:34 PM CDT Balaji Bartlett MD MICROBIOLOGY - GENERAL ORDER JAROD Final Result Performing Organization Address [facility] Co de Phone Number [facility] [address] [place] [address], [phone] * (ABNORMAL) HEPARIN, ANTI XA, UFH (10/17/2024 1:45 AM CDT) Only the most recent of6 resultswithin the time period is included. HEPARIN ANTI XA UFH 0.15(L) 0.30 - 0.70 IU/ML 10/17/2024 2:09 AM CDT [facility] Comment: UFH Therapeutic Anti Xa Ranges: Medical Therapeutic Range: 0.30 - 0.70 IU/mL Cardiac Therapeutic Range: 0.30 - 0.50 IU/mL Neuro Therapeutic Range: 0.20 - 0.40 IU/mL 10/17/2024 1:45 AM CDT us Balaji Bartlett MD LABORATORY Final Result Performing Organization Address [facility] Co de Phone Number [facility] [address] [place] [address], [phone] * (ABNORMAL) PROTIME/INR, VENOUS (10/17/2024 1:45 AM CDT) Only the most recent of5 resultswithin the time period is included. PROTIME 12.6(H) 9.4 - 12.5 SEC 10/17/2024 3:09 AM CDT [facility] INR 1.1 0.8 - 1.1 10/17/2024 3:09 AM CDT [facility] 10/17/2024 1:45 AM CDT us Balaji Bartlett MD LABORATORY Final Result Performing Organization Address City/[facility] Co de Phone Number [facility] [address] [place] [address], [phone] * (ABNORMAL) HEMOGLOBIN AND HEMATOCRIT (10/16/2024 8:00 PM CDT) Only the most recent of2 resultswithin the time period is included. HGB 9.4(L) 12.0 - 16.0 G/DL 10/16/2024 8:03 PM CDT [facility] HCT 31.1(L) 36.0 - 47.0 % 10/16/2024 8:03 PM CDT [facility] 10/16/2024 8:00 PM CDT Balaji Bartlett MD LABORATORY Final Result [facility] [address] [place] [address], [id number] * (ABNORMAL) POCT ACUTE VENOUS PANEL (10/16/2024 5:14 PM CDT) Only the most recent of2 resultswithin the time period is included. SODIUM WHOLE BLOOD 142 138 - 146 mmol/L 10/16/2024 5:16 PM CDT [facility] POTASSIUM WHOLE BLOOD 5.0(H) 3.5 - 4.9 mmol/L 10/16/2024 5:16 PM CDT [facility] CA IONIZED WH BLOOD 1.23 1.12 - 1.32 mmol/L 10/16/2024 5:16 PM CDT [facility] POC PH VENOUS 7.398 7.31 - 7.41 10/16/2024 5:16 PM CDT [facility] POC PCO2 VENOUS 45.1 41.0 - 51.0 MMHG 10/16/2024 5:16 PM CDT [facility] POC PO2 VENOUS 31 25 - 40 MMHG 10/16/2024 5:16 PM CDT [facility] POC HCO3 VENOUS 27.9 23 - 28 MMOL/L 10/16/2024 5:16 PM CDT [facility] POC TCO2 VENOUS 29 24 - 29 MMOL/L 10/16/2024 5:16 PM CDT [facility] POC BASE EXCESS VENOUS 3 0 - 3 MMOL/L 10/16/2024 5:16 PM CDT [facility] POC HEMATOCRIT 42 38 - 51 % 10/16/2024 5:16 PM CDT [facility] TIME TEST WAS PERFORMED: 1714 10/16/2024 5:16 PM CDT [facility] 10/16/2024 5:14 PM CDT us Balaji Bartlett MD POCT ORDERABLES - DEVICE Fin al Result [facility] [address] [place] [address], [place] [phone] * (ABNORMAL) POCT ACUTE ARTERIAL PANEL (10/16/2024 12:12 PM CDT) SODIUM WHOLE BLOOD 138 138 - 146 mmol/L 10/16/2024 12:18 PM CDT [facility] POTASSIUM WHOLE BLOOD 5.1(H) 3.5 - 4.9 mmol/L 10/16/2024 12:18 PM CDT [facility] CA IONIZED WH BLOOD 1.25 1.12 - 1.32 mmol/L 10/16/2024 12:18 PM CDT [facility] POC PH ARTERIAL 7.408 7.35 - 7.45 10/16/2024 12:18 PM CDT [facility] POC PCO2 ARTERIAL 38.5 35.0 - 45.0 MMHG 10/16/2024 12:18 PM CDT [facility] POC PO2 ARTERIAL 72(L) 80 - 105 MMHG 10/16/2024 12:18 PM CDT [facility] POC HCO3 ARTERIAL 24.3 22 - 26 MMOL/L 10/16/2024 12:18 PM CDT [facility] POC TCO2 ARTERIAL 25 23 - 27 MMOL/L 10/16/2024 12:18 PM CDT [facility] POC BASE EXCESS ARTERIAL 0 0 - 3 MMOL/L 10/16/2024 12:18 PM CDT [facility] POC HEMATOCRIT 28(L) 38 - 51 % 10/16/2024 12:18 PM CDT [facility] TIME TEST WAS PERFORMED: 1212 10/16/2024 12:18 PM CDT [facility] 10/16/2024 12:1 2 PM CDT us Balaji Bartlett MD POCT ORDERABLES - DEVICE Fin al Result [facility] [address] [place] [address], [id number] * ECG 12 lead (10/16/2024 9:01 AM CDT) Only the most recent of8 resultswithin the time period is included. 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 Examiner: Daquan : 1975 Requested By: BALAJI WOODWARD Order Number: [id number] Reading MD: Beto Rosado Measurements Intervals [place] Rate: 123 P: 49 [place]: 142 QRS: 8 QRSD: 85 T: 142 QT: 298 QTc: 427 Interpretive Statements SINUS TACHYCARDIA LOW QRS VOLTAGE IN PRECORDIAL LEADS [QRS DEFLECTION < 1.0 mV IN CHEST LEADS] ANTEROLATERAL MYOCARDIAL INFARCTION , OF INDETERMINATE AGE [40+ ms Q WAVE IN I/aVL/V3-V6] sway Procedure Note Beto Rosado MD - 10/16/2024 [facility] [address] [place] [address] Test Date: 2024-10-16 Pat Name: CEM MARSHALL Department: 1 Room: [place] [address] Gender: Female Latent Fingerprint Examiner: Daquan : 1975 Requested By: BALAJI WOODWARD Order Number: [id number] Reading MD: Beto Rosado Measurements Intervals [place] Rate: 123 P: 49 [place]: 142 QRS: 8 QRSD: 85 T: 142 QT: 298 QTc: 427 Interpretive Statements SINUS TACHYCARDIA LOW QRS VOLTAGE IN PRECORDIAL LEADS [QRS DEFLECTION < 1.0 mV IN CHESTLEADS] ANTEROLATERAL MYOCARDIAL INFARCTION , OF INDETERMINATE AGE [40+ ms Q WAVEIN I/aVL/V3-V6] sway Balaji Bartlett MD ECG ORDERABLES Final Result Performing Organization Address City/[facility]/ZIP Co de Phone Number [facility] * STREP PNEUMO AG URINE (10/16/2024 7:00 AM CDT) S. PNEUMONIAE URINARY AG NEGATIVE NEGATIVE 10/17/2024 3:10 PM CDT [facility] Comment: PRESUMPTIVE NEGATIVE FOR PNEUMOCOCCAL PNEUMONIA, SUGGESTING NO CURRENT OR RECENT PNEUMOCOCCAL INFECTION. INFECTION DUE TO STREPTOCOCCUS PNEUMONIA CANNOT BE RULED OUT SINCE THE ANTIGEN PRESENT IN THE SAMPLE MAY BELOW THE DETECTION LIMIT OF THE TEST. SPECIMEN TYPE URINE CLEAN CATCH 10/15/2024 2:30 PM MINE PROMOTOR [facility] URINE SPECIMEN OBTAINED BY CLEAN CATCH PROCEDURE / Unknown 10/16/2024 7:00 AM CDT Balaji Bartlett MD MICROBIOLOGY - GENERAL ORDER JAROD Final Result Performing Organization Address City/[facility]/ZIP Co de Phone Number [facility] [address] [place] [address], [phone] * UREA NITROGEN URINE RANDOM (10/16/2024 7:00 AM CDT) UREA NITROGEN (U) 106 MG/DL 10/16/2024 8:30 AM CDT [facility] Comment:REFERENCE RANGE NOT ESTABLISHED URINE SPECIMEN / Unknown 10/16/2024 7:00 AM CDT us Balaji Bartlett MD URINE ORDERABLES Final Resul t Performing Organization Address [facility] de Phone Number [facility] [address] [place] [address], [phone] * LEGIONELLA AG URINE (10/16/2024 7:00 AM CDT) Pathologist [facility] LEGIONELLA ANTIGEN (URINE) NEGATIVE NEGATIVE 10/17/2024 3:10 PM CDT [facility] Comment: PRESUMPTIVE NEGATIVE FOR [...] ORDER JAROD Final Result Performing Organization Address [facility] de Phone Number [facility] [address] [place] [address], [place] [phone] * TRANSFUSE RED BLOOD CELLS (10/16/2024 5:26 [...] 4:43 AM Narrative 10/16/2024 4:44 AM CDT [address] [address] PATIENT NAME: CEM MARSHALL EXAM: Chest one [...] Procedure Note Joseph Doyle MD - 10/16/[address] [address] PATIENT NAME: CEM MARSHALL EXAM: Chest one [...] 7.1(H) <5.7 % 10/16/2024 5:33 AM CDT [facility] ESTIMATED AVG GLUCOSE 157(H) 74 - 114 MG/DL 10/16/2024 5:33 AM CDT [facility] 10/16/2024 4:00 AM CDT Segundo Storm MD LABORATORY Final Result Performing Organization Address [facility] Co de Phone Number [facility] [address] [place] [address], [phone] * LACTIC ACID - SINGLE (10/16/2024 4:00 AM CDT) Only the most recent of3 resultswithin the time period is included. LACTIC ACID VENOUS 1.9 0.4 - 2.0 MMOL/L 10/16/2024 4:54 AM CDT [facility] 10/16/2024 4:00 AM CDT Balaji Bartlett MD LABORATORY Final Result Performing Organization Address [facility] de Phone Number [facility] [address] [place] [address], [place] [phone] * BLOOD TYPING, ABO AND RH (10/15/2024 8:00 PM MINE PROMOTOR) ABO/RH A POSITIVE 10/15/2024 8:43 PM MINE PROMOTOR [facility] 10/15/2024 8:00 PM MINE PROMOTOR us Balaji Bartlett MD BLOOD BANK TEST ORDERABLES F inal Result Performing Organization Address [facility] Co de Phone Number [facility] [address] [place] [id number], [place] [phone] * (ABNORMAL) TROPONIN, QUANT (10/15/2024 8:00 PM MINE PROMOTOR) Only the most recent of6 resultswithin the time period is included. TROPONIN I HIGH SENSITIVITY 240(H) 0 - 53 ng/L 10/15/2024 8:51 PM MINE PROMOTOR [facility] 10/15/2024 8:00 PM MINE PROMOTOR Balaji Bartlett MD LABORATORY Final Result [facility] [address] [place] [address], [phone] * CT ABD+PEL WO CON (10/15/2024 6:00 PM MINE PROMOTOR) Only the most recent of2 resultswithin the time period is included. Anatomical Region Laterality Modality Abdomen Computed Tomogra phy 10/15/2024 6:13 PM MINE PROMOTOR Impressions 10/15/2024 6:26 PM MINE PROMOTOR IMPRESSION: 1. New bibasilar multifocal pneumonia. 2. [...] 10/15/2024 6:13 PM Narrative 10/15/2024 6:26 PM MINE PROMOTOR [facility] [address] [place], [place] [address] EXAMINATION: CT ABD+PEL WO CON DATE: 10/15/2024 [...] Procedure Note Christopher Flaherty MD - 10/15/[address] [address] EXAMINATION: CT ABD+PEL WO CON DATE: 10/15/2024 [...] (ABNORMAL) PRO-BRAIN NATRIURETIC PEPTIDE (10/15/2024 3:43 PM MINE PROMOTOR) Only the most recent of3 resultswithin the time period is included. PRO-B TYPE NATRIURETIC PEPTIDE 11,053(H) <125 PG/ML 10/15/2024 4:32 PM MINE PROMOTOR [facility] Comment: AGE INDEPENDENT: <300 [...] 72% FOR ACUTE CHF. 10/15/2024 3:43 PM MINE PROMOTOR Segundo Storm MD LABORATORY Final Result [facility] [address] [place] [address], [phone] * TYPE & SCREEN (10/15/2024 3:43 PM MINE PROMOTOR) Only the most recent of2 resultswithin the time period is included. Pathologist [facility] UNITS ORDERED 1 10/16/2024 12:27 AM MINE PROMOTOR [facility] ABO/RH A POSITIVE 10/15/2024 6:59 PM MINE PROMOTOR [facility] ANTIBODY SCREEN NEGATIVE 6:59 PM MINE PROMOTOR [facility] SAMPLE EXPIRATION 10/18/2024,2359 10/15/2024 3:57 PM [facility] BLOOD UNIT NUMBER [id number] 10/16/2024 12:27 AM [facility] PRODUCT: PC LEUKOPOOR 10/16/2024 12:27 AM [facility] UNIT DIVISION 00 10/16/2024 12:27 AM [facility] BLOOD UNIT STATUS TRANSFUSED,FINAL 10/17/2024 7:08 AM T [facility] ISSUE DATE/TIME [id number] 025 7:08 AM T [facility] PRODUCT CODE [id number] 10/17/2024 7:08 AM T [facility] ABO/RH Unit A POS 10/17/2024 7:08 AM T [facility] ABO/RH UNIT ISBT CODE 6200 10/17/2024 7:08 AM T [facility] BLOOD UNIT EXPIRATION DATE [id number] 10/17/2024 7:08 AM [facility] TRANSFUSION STATUS OK TO TRANSFUSE 10/16/2024 12:27 AM [facility] CROSSMATCH COMPATIBLE-EXM 10/16/2024 12:27 AM [facility] 10/15/2024 3:43 PM MINE PROMOTOR us Segundo Storm MD BLOOD BANK TEST ORDERABLES Fin al Result [facility] [address] [place] [address], [phone] * (ABNORMAL) HEPATIC FUNCTION PANEL (10/15/2024 3:43 PM MINE PROMOTOR) BILIRUBIN TOTAL S/P/B 0.3 0.2 - 1.0 MG/DL 10/15/2024 4:32 PM MINE PROMOTOR [facility] BILIRUBIN DIRECT S/P/B <0.1 0.0 - 0.2 MG/DL 10/15/2024 4:32 PM MINE PROMOTOR [facility] ALKALINE PHOSPHATASE S/P/B 117(H) 39 - 100 U/L 10/15/2024 4:32 PM MINE PROMOTOR [facility] AST 18 15 - 37 U/L 10/15/2024 4:32 PM MINE PROMOTOR [facility] ALT 17 13 - 56 U/L 10/15/2024 4:32 PM MINE PROMOTOR [facility] TOTAL PROTEIN S/P/B 6.8 6.4 - 8.2 G/DL 10/15/2024 4:32 PM MINE PROMOTOR [facility] ALBUMIN S/P/B 1.5(L) 3.4 - 5.0 G/DL 10/15/2024 4:32 PM MINE PROMOTOR [facility] 10/15/2024 3:43 PM MINE PROMOTOR Segundo Storm MD LABORATORY Final Result Performing Organization Address [facility] de Phone Number [facility] [address] [place] [address], [phone] * (ABNORMAL) THYROID STIM HORMONE, TSH (10/15/2024 3:43 PM MINE PROMOTOR) TSH 3.950(H) 0.358 - 3.740 uIU/ML 10/15/2024 4:32 PM MINE PROMOTOR [facility] Comment: ASSAY PERFORMED BY CHEMILUMINESCENCE METHODOLOGY USING SIEMENS DIMENSION VISTA REAGENT. PATIENT RESULTS DETERMINED BY ASSAYS USING DIFFERENT MANUFACTURERS FOR METHODS MAY NOT BE COMPARABLE. 10/15/2024 3:43 PM MINE PROMOTOR Segundo Storm MD LABORATORY Final Result Performing Organization Address [facility] Co de Phone Number [facility] [address] [place] [address], [phone] * (ABNORMAL) CALCIUM, IONIZED (10/15/2024 3:43 PM MINE PROMOTOR) CALCIUM IONIZED 1.12(L) 1.15 - 1.33 MMOL/L 10/15/2024 3:55 PM MINE PROMOTOR [facility] 10/15/2024 3:43 PM MINE PROMOTOR Segundo Storm MD LABORATORY Final Result [facility] [address] [place] [address], [phone] * US RETROPERITONEAL LTD (10/15/2024 3:21 PM MINE PROMOTOR) Anatomical Region Laterality Modality Renal Ultrasound 10/15/2024 3:41 PM MINE PROMOTOR Impressions 10/15/2024 3:49 PM MINE PROMOTOR Impression: 1. Normal appearance of the right [...] 10/15/2024 3:41 PM Narrative 10/15/2024 3:49 PM MINE PROMOTOR [facility] [address] [place], [place] [address] Examination: US RETROPERITONEAL LTD Exam Date/Time: 10/15/2024 [...] Procedure Note Christopher Flaherty MD - 10/15/[address] [address] Examination: US RETROPERITONEAL LTD Exam Date/Time: 10/15/2024 [...] USE ECHOCARDIOGRAM W CON (10/15/2024 2:34 PM MINE PROMOTOR) Anatomical Region Laterality Modality NA Echocardiogram 10/15/2024 1:54 PM MINE PROMOTOR Narrative 10/16/2024 10:33 AM CDT Echocardiography Report Pat.Name: CEM MARSHALL Pat.ID: [id number] .Date: 10/15/2024 Refer.MD: [id number] LISSY Morley EWDPROV EWDPROV Exam Time: 1:54:00 PM Study Type:ECHO W/CONTRAST COMPLETE Height: 65 in Weight: 260 lb BSA: 2.21 m2 Age: 4 1975,48Y Sex: F BP: 93/65 HR: 120 bpm Sonogrphr: Adam Gregory RDCS Pat. Stat.:Inpatient Room: [place] [address] CPT - 4: C8929 Reason for Study:Hypoxia [...] Mass 2D Value 234 g LV Mass [id number] Value 106 g/m2 Right Ventricle Right Ventricle [...] 3.2 cm Right Ventricle 2.4 cm Major [place] 7.5 cm MMODE TA Tricuspid Annul 2.22 cm <Electronic Signature> 10/16/2024 10:33 AM Rose Conn M.D. Procedure Note Rose Conn MD - 10/16/2024 Echocardiography Report Pat.Name: CEM MARSHALL Pat.ID: [id number] .Date: 10/15/2024 Refer.: [id number] LISSY Morley EWDPROV EWDPROV Exam Time: 1:54:00 PM Study Type:ECHO W/CONTRAST COMPLETE Height: 65 in Weight: 260 lb BSA: 2.21 m2 Age: 4 1975,48Y Sex: F BP: 93/65 HR: 120 bpm Sonogrphr: Adam Gregory [facility] Pat. Stat.:Inpatient Room: [place] [address] CPT - 4: C8929 Reason for Study:Hypoxia [...] Mass 2D Value 234 g LV Mass Ulzmm2Y Value 106 g/m2 Right Ventricle Right Ventricle [...] 3.2 cm Right Ventricle 2.4 cm Major [place] 7.5 cm MMODE TA Tricuspid Annul 2.22 cm <Electronic Signature> 10/16/2024 10:33 AM Rose Conn M.D. us Segundo Storm MD ECHO Final Result * CULTURE, RESPIRATORY W/ GRAM STAIN (10/15/2024 2:20 PM MINE PROMOTOR) SPEC DESCRIPTION SPUTUM, INDUCED 10/15/2024 2:26 PM MINE PROMOTOR [facility] SPECIAL REQUESTS NO SPECIAL REQUEST 10/15/2024 2:26 PM MINE PROMOTOR [facility] GRAM STAIN RESULT <10 EPITHELIAL CELLS PER LPF 10/15/2024 3:23 PM MINE PROMOTOR [facility] GRAM STAIN RESULT 10-25 NEUTROPHILS PER LPF 10/15/2024 3:23 PM MINE PROMOTOR [facility] GRAM STAIN RESULT MANY GRAM POSITIVE RODS 10/15/2024 3:23 PM MINE PROMOTOR [facility] GRAM STAIN RESULT MANY GRAM POSITIVE COCCI IN PAIRS, CHAINS, AND CLUSTERS 10/15/2024 3:23 PM MINE PROMOTOR [facility] GRAM STAIN RESULT MODERATE BUDDING YEAST CELLS 10/15/2024 3:23 PM MINE PROMOTOR [facility] GRAM STAIN RESULT FEW GRAM NEGATIVE RODS 10/15/2024 3:23 PM MINE PROMOTOR [facility] CULTURE RESULT MANY MICROCOCCUS SPECIES 10/17/2024 9:22 AM CDT [facility] CULTURE RESULT FEW ALPHA STREPTOCOCCUS 10/17/2024 9:22 AM CDT [facility] CULTURE RESULT FEW YEAST 10/17/2024 9:22 AM CDT [facility] SPUTUM SPECIMEN OBTAINED BY SPUTUM INDUCTION / Unknown 10/15/2024 2:20 PM MINE PROMOTOR 10/15/2024 2:38 PM MINE PROMOTOR us Balaji Bartlett MD MICROBIOLOGY - GENERAL ORDER JAROD Final Result [facility] [address] [place] [address], [phone] * BIOFIRE PCR UPPER RESPIRATORY PROFILE (RESPIRATORY PCR PANEL 2) (10/15/2024 1:32 PM MINE PROMOTOR) Pathologist [facility] ADENOVIRUS PCR (RESP) NOT DETECTED NOT DETECTED 10/15/2024 2:49 PM MINE PROMOTOR [facility] CORONAVIRUS 229E PCR (RESP) NOT DETECTED NOT DETECTED 10/15/2024 2:49 PM MINE PROMOTOR [facility] CORONAVIRUS HKU1 PCR (RESP) NOT DETECTED NOT DETECTED 10/15/2024 2:49 PM MINE PROMOTOR [facility] CORONAVIRUS NL63 PCR (RESP) NOT DETECTED NOT DETECTED 10/15/2024 2:49 PM MINE PROMOTOR [facility] CORONAVIRUS OC43 PCR (RESP) NOT DETECTED NOT DETECTED 10/15/2024 2:49 PM MINE PROMOTOR [facility] METAPNEUMOVIRUS PCR (RESP) NOT DETECTED NOT DETECTED 10/15/2024 2:49 PM MINE PROMOTOR [facility] RHINOVIRUS/ENTEROV IRUS PCR (RESP) NOT DETECTED NOT DETECTED 10/15/2024 2:49 PM MINE PROMOTOR [facility] INFLUENZA A PCR (RESP) NOT DETECTED NOT DETECTED 10/15/2024 2:49 PM MINE PROMOTOR [facility] INFLUENZA B PCR (RESP) NOT DETECTED NOT DETECTED 10/15/2024 2:49 PM MINE PROMOTOR [facility] PARAINFLUENZA 1 PCR (RESP) NOT DETECTED NOT DETECTED 10/15/2024 2:49 PM MINE PROMOTOR [facility] PARAINFLUENZA 2 PCR (RESP) NOT DETECTED NOT DETECTED 10/15/2024 2:49 PM MINE PROMOTOR [facility] PARAINFLUENZA 3 PCR (RESP) NOT DETECTED NOT DETECTED 10/15/2024 2:49 PM MINE PROMOTOR [facility] PARAINFLUENZA 4 PCR (RESP) NOT DETECTED NOT DETECTED 10/15/2024 2:49 PM MINE PROMOTOR [facility] RSV PCR (RESP) NOT DETECTED NOT DETECTED 10/15/2024 2:49 PM MINE PROMOTOR [facility] B PARAPERTUSIS PCR (RESP) NOT DETECTED NOT DETECTED 10/15/2024 2:49 PM MINE PROMOTOR [facility] BORDETELLA PERTUSSIS PCR (RESP) NOT DETECTED NOT DETECTED 10/15/2024 2:49 PM MINE PROMOTOR [facility] CHLAMYDOPHILA PNEUMONIAE PCR (RESP) NOT DETECTED NOT DETECTED 10/15/2024 2:49 PM MINE PROMOTOR [facility] MYCOPLASMA PNEUMONIAE PCR (RESP) NOT DETECTED NOT DETECTED 10/15/2024 2:49 PM MINE PROMOTOR [facility] CORONAVIRUS SARS COV 2 PCR (RESP) NOT DETECTED NOT DETECTED 10/15/2024 2:49 PM MINE PROMOTOR [facility] NASOPHARYNGEAL SWAB / Unknown 10/15/2024 1:32 PM MINE PROMOTOR us Balaji Bartlett MD MICROBIOLOGY - GENERAL ORDER JAROD Final Result [facility] [address] [place] [address], [id number] * MRSA SCREENING (10/15/2024 12:54 PM MINE PROMOTOR) SPECIMEN SOURCE RESPIRATORY, NOSE 10/15/2024 12:53 PM MINE PROMOTOR [facility] MRSA BY PCR NASAL METHICILLIN RESISTANT STAPH AUREUS NOT DETECTED METHICILLIN RESISTANT STAPH AUREUS NOT DETECTED 10/17/2024 11:28 AM CDT [facility] NASAL STRUCTURE / Unknown 10/15/2024 12:54 PM MINE PROMOTOR Segundo Storm MD MICROBIOLOGY - GENERAL ORDERAB LES Final Result Performing Organization Address [facility] de Phone Number [facility] [address] [place] [address], [place] [phone] * CULTURE, URINE (10/15/2024 12:53 PM MINE PROMOTOR) Only the most recent of3 resultswithin the time period is included. SPEC DESCRIPTION URINE CLEAN CATCH 10/15/2024 12:57 PM MINE PROMOTOR [facility] SPECIAL REQUESTS NO SPECIAL REQUEST 10/15/2024 12:57 PM MINE PROMOT[facility] CULTURE RESULT >25,000 TO 50,000 CFU/mL YEAST 10/18/2024 7:42 AM CDT [facility] URINE SPECIMEN OBTAINED BY CLEAN CATCH PROCEDURE / Unknown 10/15/2024 12:53 PM MINE PROMOTOR 10/15/2024 6:41 PM MINE PROMOTOR Segundo Storm MD MICROBIOLOGY - GENERAL ORDERAB LES Final Result Performing Organization Address [facility] Co de Phone Number [facility] LAB [address] [place] [address], [place] [phone] * CARDIAC PROFILE (CK,CKMB,TROP) (10/15/2024 9:20 AM MINE PROMOTOR) CPK 33 26 - 192 U/L 10/15/2024 9:47 AM MINE PROMOTOR [facility] CK-MB <1.0 0.5 - 3.6 NG/ML 10/15/2024 7:22 PM MINE PROMOTOR [facility] TROPONIN I HIGH SENSITIVITY 41 0 - 51 ng/L 10/15/2024 9:47 AM MINE PROMOTOR [facility] 10/15/2024 9:20 AM MINE PROMOTOR Elida Ma NP LABORATORY Final Result Performing Organization Address [facility]/ZIP Co de Phone Number [facility] [address] [place] [address], [facility] [address] [place] [address], [place] [phone] * (ABNORMAL) Blood gas, venous (10/15/2024 8:37 AM MINE PROMOTOR) Only the most recent of2 resultswithin the time period is included. PH VENOUS 7.36 7.32 - 7.43 10/15/2024 8:53 AM [facility] PCO2 VENOUS 49.0 MMHG 10/15/2024 8:53 AM [facility] Comment:NO REFERENCE RANGE H BEEN ESTABLISHED PO2 VENOUS <30.0 MM HG 10/15/2024 8:53 AM [facility] Comment:NO REFERENCE RANGE H BEEN ESTABLISHED TOTAL CO2 VENOUS 29.2(H) 22.0 - 26.0 MMOL/L 10/15/2024 8:53 AM [facility] BASE EXCESS VENOUS 1.5 MMOL/L 10/15/2024 8:53 AM [facility] Comment:NO REFERENCE RANGE H BEEN ESTABLISHED O2 SAT VENOUS NOT CALCULATED % 025 8:53 AM [facility] Comment:NO REFERENCE RANGE H BEEN ESTABLISHED BICARB VENOUS 27.7 22.0 - 29.0 MMOL/L 10/15/2024 8:53 AM [facility] O2 ADMIN VENOUS 5L 8:37 AM [facility] 10/15/2024 8:37 AM MINE PROMOTOR Lorenza Inman MD LABORATORY Final Resu lt [facility] [address] [place] [phone], * (ABNORMAL) IRON SAT PANEL (IRON,IBC,%SAT) (10/15/2024 4:24 AM MINE PROMOTOR) IRON 33(L) 50 - 170 MCG/DL 10/15/2024 5:13 AM MINE PROMOTOR [facility] IRON BINDING CAPACITY 197(L) 250 - 450 MCG/DL 10/15/2024 5:13 AM MINE PROMOTOR [facility] IRON SATURATION 17 % 5:13 AM MINE PROMOTOR [facility] Comment:REFERENCE RANGE NOT ESTABLISHED 10/15/2024 4:24 AM MINE PROMOTOR us Issa Blackman MD LABORATORY Final Result Performing Organization Address [facility] Co de Phone Number [facility] [address] [place] [phone], * VITAMIN B-12 (10/15/2024 4:24 AM MINE PROMOTOR) Pathologist [facility] VITAMIN B12 S/P/B 507 193 - 986 PG/ML 10/15/2024 2:10 PM MINE PROMOTOR [facility] 10/15/2024 4:24 AM MINE PROMOTOR us Issa Blackman MD LABORATORY Final Result Performing Organization Address [facility] Co de Phone Number [facility] [address] [place] [address], [place] [phone] * (ABNORMAL) RETICULOCYTE CT, AUTO (10/15/2024 4:24 AM MINE PROMOTOR) RETICULOCYTE COUNT 6.4(H) 0.6 - 2.3 % 10/15/2024 5:01 AM MINE PROMOTOR [facility] ABSOLUTE RETICULOCYTE 0.15(H) 0.02 - 0.10 x10'6/uL 10/15/2024 5:01 AM [facility] IMMATURE RETIC FRACTION 32.8(H) 3.0 - 15.9 % 10/15/2024 5:01 AM [facility] RETIC HGB 24.2(L) 28.0 - 35.0 PG 10/15/2024 5:01 AM [facility] 10/15/2024 4:24 AM MINE PROMOTOR Issa Blackman MD LABORATORY Final Result [facility] [address] [place] [address], * (ABNORMAL) COMPREHENSIVE METABOLIC PANEL (10/15/2024 4:24 AM MINE PROMOTOR) Only the most recent of6 resultswithin the time period is included. SODIUM S/P/B 138 136 - 145 MMOL/L 10/15/2024 4:49 AM [facility] POTASSIUM S/P/B 4.8 3.5 - 5.1 MMOL/L 10/15/2024 4:49 AM [facility] CHLORIDE S/P/B 104 98 - 107 MMOL/L 10/15/2024 4:49 AM [facility] CO2 27.4 21.0 - 32.0 MMOL/L 10/15/2024 4:49 AM [facility] GLUCOSE 175(H) 70 - 99 MG/DL 10/15/2024 4:49 AM [facility] Comment: FASTING GLUCOSE 100 TO 125 MG/DL IS CONSISTENT WITH IMPAIRED FASTING GLUCOSE. FASTING GLUCOSE >125 MG/DL IS CONSISTENT WITH DIABETES. RANDOM GLUCOSE >200 MG/DL WITH HYPERGLYCEMIC SYMPTOMS IS CONSISTENT WITH DIABETES. PER ADA GUIDELINES BUN 38(H) 6 - 24 MG/DL 10/15/2024 4:49 AM [facility] CREATININE S/P/B 1.80(H) 0.55 - 1.02 MG/DL 10/15/2024 4:49 AM [facility] CALCIUM S/P/B 8.2(L) 8.4 - 10.5 MG/DL 10/15/2024 4:49 AM [facility] BILIRUBIN TOTAL S/P/B 0.2 0.2 - 1.0 MG/DL 10/15/2024 4:49 AM [facility] Comment: THIS ASSAY IS NOT RECOMMENDED FOR PATIENTS UNDERGOING TREATMENT WITH ELTROMBOPAG DUE TO THE POTENTIAL FOR FALSELY ELEVATED RESULTS. ALKALINE PHOSPHATASE S/P/B 115(H) 39 - 100 U/L 10/15/2024 4:49 AM [facility] AST 12(L) 15 - 37 U/L 10/15/2024 4:49 AM [facility] ALT 20 14 - 59 U/L 10/15/2024 4:49 AM [facility] TOTAL PROTEIN S/P/B 6.4 6.4 - 8.2 G/DL 10/15/2024 4:49 AM [facility] ALBUMIN S/P/B 1.4(L) 3.4 - 5.0 G/DL 10/15/2024 4:49 AM [facility] ANION GAP 6.6 5.0 - 15.0 MMOL/L 10/15/2024 4:49 AM [facility] OSMOLALITY (CALC) 299 MOSM/KG 025 4:49 AM [facility] Comment:REFERENCE RANGE NOT ESTABLISHED GFR ESTIMATE 34(L) >89 ML/MIN/1. 73 M2 10/15/2024 4:49 AM [facility] GFR NOTES GFR REFERENCE S: 10/15/2024 4:49 AM [facility] Comment: THE ESTIMATED GFR IS CALCULATED [...] FAILURE: <15 ml/min/1.73 m2 10/15/2024 4:24 AM MINE PROMOTOR Matt Mixon DO LABORATORY Final Result Performing Organization Address [facility] Co de Phone Number [facility] [address] [place] [address], [place] [phone] * FOLIC ACID SERUM (10/15/2024 4:24 AM MINE PROMOTOR) FOLATE 6.9 3.1 - 17.5 NG/ML 10/15/2024 2:10 PM MINE PROMOTOR [facility] 10/15/2024 4:24 AM MINE PROMOTOR us Issa Blackman MD LABORATORY Final Result Performing Organization Address City/[facility] Co de Phone Number [facility] [address] [place] [address], [place] [phone] * FERRITIN (10/15/2024 4:24 AM MINE PROMOTOR) FERRITIN 195.2 8 - 252 NG/ML 10/15/2024 5:27 AM MINE PROMOTOR [facility] 10/15/2024 4:24 AM MINE PROMOTOR us Issa Blackman MD LABORATORY Final Result Performing Organization Address City/[facility] Co de Phone Number [facility] [address] [place] [address], [place] [phone] * IV PLACEMENT (10/14/2024 7:00 PM MINE PROMOTOR) Narrative Jeffery Escobar CRNA - 10/14/2024 7:00 PM MINE PROMOTOR Jeffery Escobar CRNA 10/14/2024 7:21 PM Peripheral [...] Patient Tolerance: Tolerated well us Jeffery Escobar CRNA [place] ANESTHESIA Final Res ult * XR CHEST PA+LAT (10/14/2024 5:26 PM MINE PROMOTOR) Anatomical Region Laterality Modality Chest Radiographic Marya ging 10/14/2024 5:26 PM MINE PROMOTOR Impressions 10/14/2024 5:27 PM MINE PROMOTOR Impression: 1. Nonspecific left basilar opacity. 2. Pulmonary vascular congestion. Referred By: Interpreted By: Tyron Fitzgerald MD, 10/14/2024 5:26 PM Narrative 10/14/2024 5:27 PM MINE PROMOTOR [address] [place] [address] Examination: Chest 2 View History: Shortness of [...] Procedure Note Tyron Fitzgerald MD - 10/14/[address] [place] [address] Examination: Chest 2 View History: Shortness of [...] (ABNORMAL) ARTERIAL BLOOD GAS (10/14/2024 4:56 PM MINE PROMOTOR) Only the most recent of3 resultswithin the time period is included. PH ARTERIAL 7.41 7.35 - 7.45 10/14/2024 5:01 PM MINE PROMOTOR [facility] PCO2 41.0 35.0 - 45.0 MMHG 10/14/2024 5:01 PM MINE PROMOTOR [facility] PO2 85.0 83 - 108 MMHG 10/14/2024 5:01 PM [facility] TOTAL CO2 ARTERIAL 27.3(H) 19.0 - 24.0 MMOL/L 10/14/2024 5:01 PM MINE PROMOTOR [facility] BASE EXCESS 1.2 0 - 3 MMOL/L 10/14/2024 5:01 PM MINE PROMOTOR [facility] O2 SATURATION 97 94.0 - 98.0 % 10/14/2024 5:01 PM MINE PROMOTOR [facility] BICARB ARTERIAL 26.0 21.0 - 28.0 MMOL/L 10/14/2024 5:01 PM MINE PROMOTOR [facility] SILVIA TEST OK 10/14/2024 4:56 PM MINE PROMOTOR [facility] O2 ADMIN ARTERIAL 2L NC 10/14/2024 4:56 PM MINE PROMOTOR [facility] DRAW SITE ARTERIAL RT RADIAL 10/14/2024 4:56 PM MINE PROMOTOR [facility] 10/14/2024 4:56 PM MINE PROMOTOR us Matt Mixon DO LABORATORY Final Result [facility] [address] [place] [phone], * (ABNORMAL) BETA-HYDROXYBUTYRATE (09/12/2024 9:06 PM MINE PROMOTOR) BETA-HYDROXYBU TYRATE 5.1(H) 0.0 - 0.3 MMOL/L 09/12/2024 9:13 PM MINE PROMOTOR [facility] 09/12/2024 9:06 PM MINE PROMOTOR Chad Vazquez DO LABORATORY Final Result Performing Organization Address City/[facility]/ZIP Co de Phone Number [address] [address], * PARTIAL THROMBOPLASTIN TIME,PTT (09/12/2024 8:20 PM MINE PROMOTOR) Only the most recent of5 resultswithin the time period is included. Pathologist [facility] PTT 34.3 25.1 - 36.5 SEC 09/12/2024 8:35 PM MINE PROMOTOR [facility] 09/12/2024 8:20 PM MINE PROMOTOR Malena Cortez MD LABORATORY Final Resul t Performing Organization Address City/[facility]/ZIP Co de Phone Number [address] [address], * CT HEAD WO CON (09/12/2024 6:27 PM MINE PROMOTOR) Anatomical Region Laterality Modality Head Computed Tomogra phy 09/12/2024 6:54 PM MINE PROMOTOR Impressions 09/12/2024 6:58 PM MINE PROMOTOR IMPRESSION: No definite CT evidence for acute intracranial abnormality. Please note that CT has limited sensitivity for the detection of acute ischemia. Referred By: Interpreted By: Tyron Fitzgerald MD, 09/12/2024 6:54 PM Narrative 09/12/2024 6:58 PM MINE PROMOTOR [address] [place] [address] EXAMINATION: CT of the head CLINICAL HISTORY: [...] Procedure Note Tyron Fitzgerald MD - 09/12/[address] [place] [address] EXAMINATION: CT of the head CLINICAL HISTORY: [...] CT CHEST+ABD+PEL WO CON (09/11/2024 1:56 PM MINE PROMOTOR) Anatomical Region Laterality Modality Chest, Abdomen, Pelvis Computed Tomography 09/11/2024 2:02 PM MINE PROMOTOR Impressions 09/11/2024 2:24 PM MINE PROMOTOR IMPRESSION: 1. Scattered small bilateral groundglass infiltrates, likely infectious/inflammatory. Follow-up in 3-6 months for surveillance is suggested. 2. Otherwise, no acute intrathoracic, intra-abdominal or intrapelvic process identified. 3. Coronary artery disease. 4. Cholelithiasis. Referred By: Interpreted By: Jeffery Prado MD, 09/11/2024 2:02 PM Narrative 09/11/2024 2:24 PM MINE PROMOTOR [address] [place] [address] Examination: CT of the chest, abdomen and [...] Procedure Note Jeffery Prado MD - 09/11/2024 [place] [id number] [facility] [place] [address] Examination: CT of the chest, abdomen and [...] By: Jeffery Prado MD, 09/11/2024 2:02 PM us Malena Cortez MD CT Final Resul t * LACTIC ACID W REFLEX (SEPSIS) (09/11/2024 1:39 PM MINE PROMOTOR) LACTIC ACID VENOUS 1.2 0.4 - 2.0 MMOL/L 09/11/2024 2:08 PM MINE PROMOTOR [facility] 09/11/2024 1:39 PM MINE PROMOTOR us Malena Cortez MD LABORATORY Final Resul t [facility] [address] [place] [address], * AMYLASE (08/19/2024 8:01 AM MINE PROMOTOR) AMYLASE S/P/B 43 25 - 115 UNITS/L 08/19/2024 8:27 AM MINE PROMOTOR [facility] 08/19/2024 8:01 AM MINE PROMOTOR us Marciano Mora DO LABORATORY Final Result Performing Organization Address [facility]/ZIP Co de Phone Number [facility] [address] [place] [address], * LIPASE (08/19/2024 8:01 AM MINE PROMOTOR) LIPASE 50 16 - 77 UNITS/L 08/19/2024 8:27 AM [facility] 08/19/2024 8:01 AM MINE PROMOTOR us Marciano Mora DO LABORATORY Final Result Performing Organization Address [facility] de Phone Number [facility] [address] [place] [address], * LIPID PANEL (09/15/2023 9:04 AM MINE PROMOTOR) CHOLESTEROL 181 MG/DL 09/15/2023 12:44 PM [facility] Comment:DESIRABLE: <200 TRIGLYCERIDES 196 MG/DL 09/15/2023 12:44 PM [facility] Comment:150-199 BORDERLINE H IGH HDL 55 >49 MG/DL 09/15/2023 12:44 PM [facility] LDL-C 87 MG/DL 09/15/2023 12:44 PM [facility] Comment:<100 OPTIMAL VLDL CALCULATION 39 MG/DL 09/15/19 12:44 PM [facility] Comment:REFERENCE RANGE NOT ESTABLISHED CHOL/HDL RATIO 3.3 09/15/2023 12:44 PM [facility] Comment:REFERENCE RANGE NOT ESTABLISHED LDL/HDL 1.6 09/15/2023 12:44 PM MINE PROMOTOR [facility] Comment:REFERENCE RANGE NOT ESTABLISHED NON HDL CHOLESTEROL 126 MG/DL 09/15/2023 12:44 PM MINE PROMOTOR [facility] Comment:REFERENCE RANGE NOT ESTABLISHED 09/15/2023 9:04 AM MINE PROMOTOR Rose Conn MD LABORATORY Final Result [facility] [address] [place] [address], [id number] from Last 3 Months or Most Recently Relevant to Health Maintenance Additional Health Concerns Infection Onset Date Last Indicated MRSA Comment:Added from external infection. Source: [place] [place] [employer]. 12/24/2017 Insurance [facility] MEDICAID Advance Directives * POLST (Latest [...] 10:10 PM 10/15/2024 12:14 PM Care Teams Community Life Director Relationship Specialty Start Date End Date Ace Honeycutt MD [address] [place] [phone] PCP - General FAMILY PRACTICE 04/29/24 Rose Conn MD [address], [place] [phone] Consulting Physician CARDIOVASCULAR DISEASE 09/07/23 Keith Goodwin MD [address] [place] [address] Consulting Physician INTERNAL MEDICINE 09/22/23
[2024-10-29 09:13] LABS: Glucose Point of Care 307 mg/dl (65-105)
[2024-10-29 11:22] LABS: Glucose Point of Care 320 mg/dl (65-105)
[2024-10-29 11:44] LABS: Basophils Percent Auto 0.4 % (0.2-1.2); Hematocrit 30.1 % (37.0-47.0); Hemoglobin 8.6 g/dL (12.0-15.0); Immature Granulocyte Percent A 1.1 % (0-0.5); Lymphocytes Absolute Auto 0.41 K/mm3 (0.9-3.2); Lymphocytes Percent Auto 4.4 % (18.3-44.2); Mean Corpuscular HGB Conc 28.6 g/dl (32-36); Mean Corpuscular Hemoglobin 28.4 pg (26-34); Mean Corpuscular Volume 99.3 fl (80-100); Mean Platelet Volume 11.8 fl (7.4-10.4); Monocytes Absolute Auto 0.1 K/mm3 (0.1-0.6); Monocytes Percent Auto 1.5 % (2.6-8.5); Neutrophils Absolute Auto 8.6 K/mm3 (1.3-6.7); Neutrophils Percent Auto 92.6 % (45.5-73.1); Platelet Count Result 220 k/mm3 (150-375); Red Blood Count 3.03 M/mm3 (4.2-5.4); Red Cell Distribution Width 17.1 % (11.5-14.5); White Blood Count 9.3 K/mm3 (4.5-10.0)
[2024-10-29 11:55] LABS: Alanine Aminotransferase 22 U/L (6-35); Albumin Level 3.4 g/dL (3.5-5.1); Alkaline Phosphatase 252 U/L (38-126); Anion Gap 14 mmol/L (4-12); Aspartate Amino Transferase 30 U/L (14-36); Blood Urea Nitrogen 59 mg/dL (7-17); Calcium 9.4 mg/dL (8.4-10.2); Carbon Dioxide 17 mmol/L (22-30); Chloride 106 mmol/L (98-107); Estimated CRCL calculation 59 ml/min; Estimated Glomerular Filt Rate 44; Glucose 346 mg/dL (65-110); Potassium 5.3 mmol/L (3.4-5.0); Sodium 137 mmol/L (137-145)
[2024-10-29] MEDS: METOPROLOL SUCCINATE EXT REL 25 MG TABCR PO (12:08)
[2024-10-29] MEDS: BUMETANIDE 1 MG TABLET 2 MG BY MOUTH ×2 (12:09→16:48)
[2024-10-29 12:11] LABS: Platelet Estimate Adequate (Adequate); Troponin I 0.373 ng/mL (0.000-0.034)
[2024-10-29] MEDS: GABAPENTIN 400 MG CAPSULE BY MOUTH (12:11)
[2024-10-29] MEDS: EZETIMIBE 10 MG TABLET PO (12:11)
[2024-10-29 12:12] LABS: Anisocytosis 1+; Burr Cells 1+; Schistocytes None Seen
[2024-10-29] MEDS: ATORVASTATIN 40 MG TABLET 80 MG PO (12:12)
[2024-10-29] MEDS: INSULIN ASPART (*BKC) 100 UNITS/ML 8 UNITS SUB-Q ×2 (12:16→16:48)
--- NOTE | 2024-10-29 14:25 | P.HP_ITS ---
H&P: HPI History of Present Illness Date/Time: 10/29/24 14:25 Chief Complaint: transferred from [place] on account of elevated troponin Narrative: 48 yo female wiht PMH of DM2, CHF CVA on chronic gonzalez for urinary incontinence who presented to the [place] ER on account of SOB. Patient is lethargic and thus not a great historian, however she started she has been having leg swelling since September, and now having worsening SOB, associated orthopnea and PND. Noted she has stroke in September and was admitted to [facility] where she was intubated during the course. Denies any vomiting, abd pain, diarrhea or focal weakness. noted she is on 2 liters oxygen at baseline. At the ER T 98, 93/65, saturating 97% on 4 liters oxygen. labs abg 7.38/38.3/65/22.4, hb 8.6, Cr 1.29 at appears to be at baseline, BG 348, Troponin 0.373 CT chest showed bilarteal pleural effusion with adjacent atelectasis and patchy right opacities in the right upper lobe indicative of focla pneumonia. Patient was transferred to our facility for Elevated troponin for higher level of care. Review of Systems Review of Systems: All other systems reviewed and negative except as noted in history above. [facility] Past Medical History Medical History Dyslipidemia Diabetes mellitus Social History Social History Smoking status: Current every day smoker Alcohol intake: never Substance use: never Do You Feel Safe in your Home?: Yes Lack of Transportation: No Lack of Food: Never True Current Housing: I Have Housing Concerned About Future Housing: No Difficulty Paying Gas/Electric Bills: No Difficulty Paying for Meds: No Currently Unemployed: No Education: High School Diploma/GED Difficulty w/ Childcare or Family Care: No Spiritual care concerns: No Meds Home Medications and Allergies Home Medications ?Medication ?Instructions ?Recorded ?Confirmed ?Type atorvastatin 80 mg tablet 80 mg PO DAILY 07/26/23 10/29/24 History bumetanide 1 mg tablet See Rx Instructions .Route .COMPLEX 07/26/23 10/29/24 History celecoxib 200 mg capsule 200 mg PO BID 07/26/23 10/29/24 History insulin detemir U-100 100 unit/mL 46 unit subcut DAILY 07/26/23 10/29/24 History subcutaneous solution (Levemir U-100 Insulin) insulin lispro 100 unit/mL See Rx Instructions .Route .COMPLEX 07/26/23 10/29/24 History subcutaneous solution (Humalog U-100 Insulin) metoprolol succinate 25 mg 25 mg PO DAILY 07/26/23 10/29/24 History tablet,extended release 24 hr ezetimibe 10 mg tablet 10 mg PO DAILY 10/29/23 10/29/24 History gabapentin 400 mg capsule See Rx Instructions .Route .COMPLEX 10/29/23 10/29/24 History docusate sodium 100 mg capsule 100 mg PO BID PRN constipation 08/20/24 10/29/24 Rx (Colace) #14 caps Allergies Allergy/AdvReac Type Severity Reaction Status Date / Time cephalexin (From Keflex) Allergy Unknown Unknown Verified 10/28/24 11:25 codeine Allergy Unknown Verified 10/28/24 11:25 erythromycin base Allergy Unknown Verified 10/28/24 11:25 Vital Signs Vital Signs - 24 hr 10/29/24 07:15 10/29/24 10:00 10/29/24 11:40 Temperature 97.4 F L 97.4 F L Pulse Rate 102 H 100 107 H Respiratory Rate 24 H 20 Blood Pressure 137/74 149/74 H Pulse Oximetry 97 98 10/29/24 12:00 10/29/24 12:08 Temperature Pulse Rate 108 H 108 H Respiratory Rate Blood Pressure Pulse Oximetry Exam Narrative: General: alert and comfortable Eyes: EOMI, PERRLA ENNT External ears normal, Neck is supple, no masses, Respiratory systems: Clear to auscultation Cardiovascular S1, S2, normal rhythm, no murmur, rub, or gallop; no thrill or palpable murmurs on palpation. Gastrointestinal: soft, non-tender, and non-distended abdomen with no masses; BS present Skin: no rash, lesions, ulcerations, subcutaneous nodules or induration Musculoskeletal: Bilateral lower extremity edema 3+ Neurologic: Alert and oriented x3, non focal Mental Status Exam: normal affect H&P: Results Labs Labs: Short CBC 10/29/24 Range/Units 11:31 WBC 9.3 (4.5-10.0) K/mm3 Hgb 8.6 L (12.0-15.0) g/dL Hct 30.1 L (37.0-47.0) % Plt Count 220 (150-375) k/mm3 BMP 10/29/24 11:31 Sodium 137 Potassium 5.3 H Chloride 106 Carbon Dioxide 17 L BUN 59 H Creatinine 1.29 H Glucose 346 H Calcium 9.4 Cardiac Enzymes 10/29/24 Range/Units 11:31 Troponin I 0.373 H* (0.000-0.034) ng/mL Liver Function 10/29/24 Range/Units 11:31 Total Bilirubin 1.0 (0.2-1.3) mg/dL AST 30 (14-36) U/L ALT 22 (6-35) U/L Alkaline Phosphatase 252 H (38-126) U/L Albumin 3.4 L (3.5-5.1) g/dL Assessment and Plan Assessment and plan (1) Acute exacerbation of CHF (congestive heart failure): Qualifiers: Heart failure type: unspecified Qualified Code(s): I50.9 - Heart failure, unspecified Code(s): I50.9 - Heart failure, unspecified Status: Acute (2) Pneumonia: Qualifiers: Laterality: unspecified laterality Lung location: unspecified part of lung Pneumonia type: due to unspecified organism Qualified Code(s): J18.9 - Pneumonia, unspecified organism Code(s): J18.9 - Pneumonia, unspecified organism Status: Acute (3) Acute non-ST elevation myocardial infarction (NSTEMI): Code(s): I21.4 - Non-ST elevation (NSTEMI) myocardial infarction Status: Acute Plan Acute on chronic hypoxemic respiratory From CHF and pneumonia CT showed bilateral pleural effusion with atelectasis and focal pneumonia Currently on 4 L oxygen, baseline is 2 L oxygen. Continue Bumex, and antibiotics Monitor. Elevated troponin Troponin at the facility 0.7 Started on aspirin, Lipitor, Metoprolol and heparin infusion Echo, A1c before. Cardiology consulted. CHF exacerbation No echo on file does unable to specify Patient presented with shortness of breath, leg edema orthopnea. He has a CT chest showed a urine effusion bilaterally atelectasis. Continue Bumex 2 mg t.i.d. Cardiology consulted. Pneumonia CT chest showed a right bundle Blood and sputum culture ordered MRSA pending Started on Levaquin Follow-up closely. Anemia Hemoglobin is 8.6 Iron panel on FOBT pending. Monitor H and H Type 2 diabetes Continue home Lantus Humalog insulin. Sliding scale insulin with Accu-Cheks. Chronic Gonzalez for urinary incontinence Discussed voiding trial but patient refuses. Continue Gonzalez per patient's preference History of stroke Continue aspirin and Lipitor No residual weakness Afib on Metoprolol and heparin infusion cardiology consulted DVT prophylaxis on heparin infusion. Do not resuscitate Health power of attorney general, Arnoldo Garcia [place] Hospitalist [facility] Advance Care Plan I have confirmed that the patient's Advanced Care Plan is present, code status is documented, or surrogate decision maker is listed in patient medical record.: Yes Medication Reconciliation I have utilized all available resources to obtain, update and review the patients current medications (includes all prescriptions, OTC, herbals, cannabis, and nutritional supplements).: Yes
[2024-10-29] MEDS: BENZONATATE 100 MG CAPSULE 200 MG PO (14:56)
[2024-10-29 15:06] LABS: Basophils Percent Auto 0.2 % (0.2-1.2); Hemoglobin 8.1 g/dL (12.0-15.0); Immature Granulocyte Absolute 0.13 K/mm3 (0.00-0.031); Immature Granulocyte Percent A 1.5 % (0-0.5); Lymphocytes Absolute Auto 0.46 K/mm3 (0.9-3.2); Lymphocytes Percent Auto 5.3 % (18.3-44.2); Mean Corpuscular Hemoglobin 28.7 pg (26-34); Mean Corpuscular Volume 95.7 fl (80-100); Mean Platelet Volume 11.4 fl (7.4-10.4); Monocytes Absolute Auto 0.4 K/mm3 (0.1-0.6); Monocytes Percent Auto 4.4 % (2.6-8.5); Neutrophils Absolute Auto 7.6 K/mm3 (1.3-6.7); Neutrophils Percent Auto 88.6 % (45.5-73.1); Platelet Count Result 211 k/mm3 (150-375); Red Blood Count 2.82 M/mm3 (4.2-5.4); Red Cell Distribution Width 16.9 % (11.5-14.5); White Blood Count 8.6 K/mm3 (4.5-10.0)
[2024-10-29 15:16] LABS: INR 1.2; Prothrombin Time 15.2 Seconds (11.1-14.7)
[2024-10-29 15:17] LABS: Partial Thromboplastin Time 25.2 Seconds (22.3-36.8)
[2024-10-29 15:20] LABS: Iron 25 ug/dL (37-170)
[2024-10-29 15:29] LABS: Percent Iron Saturation 11 % (20-50)
[2024-10-29 16:29] LABS: Glucose Point of Care 342 mg/dl (65-105)
[2024-10-29] MEDS: CELECOXIB 200 MG CAPSULE PO (16:47)
[2024-10-29] MEDS: levoFLOXacin 750 MG/D5W 150 ML 750 MG/150 ML BAG 100 MG IVPB (16:49)
--- NOTE | 2024-10-29 17:04 | PM.CNCAR ---
Assessment and Plan Assessment and plan (1) Acute exacerbation of CHF (congestive heart failure): Qualifiers: Heart failure type: unspecified Qualified Code(s): I50.9 - Heart failure, unspecified Code(s): I50.9 - Heart failure, unspecified Status: Acute Plan 1. Acute on chronic heart failure with reduced LVEF. Last known LVEF 45%. 2. Elevated troponins 3. Acute on chronic hypoxic respiratory failure 4. Pneumonia 5. 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 Has been medically managed. 6. Paroxysmal atrial fibrillation 7. Diabetes mellitus 8. History of seizure disorder 9. PVD 10. History of PE 11. CKD 12. Medication noncompliance. 13. Anemia PLAN -Will start IV Lasix 40mg BID. Please monitor strict I/Os. -Echocardiogram ordered and pending. -Troponin elevation likely due to demand ischemia, unlikely ACS. Does not need Heparin drip for this. -Can continue Heparin drip for known history of PAF, unknown if patient still on NOAC at home. However, she does have significant anemia. Workup and management per Hospitalist. If no contraindication, recommend NOAC at time of discharge. -Continue ASA, statin. History of Present Illness History of Present Illness Consult date/time: 10/29/24 17:04 Requesting physician: Storm Ruelas MD Consult reason: congestive heart failure Reason For Visit: NSTEMI, sepsis, UTI, CHF, anemia Narrative: We are consulted for CHF, elevated troponin. This is a 48 year old female who presented to [place] with shortness of breath and cough for the past month. Apparently was recently hospitalized at [facility] for similar symptoms. On 2L of O2 at home. Workup at [place] shows troponins of 755, 700. Troponin here 0.373. NT pro BNP of 10,650. Chest CTA with bilateral pleural effusions, possible pneumonia. EKG with sinus rhythm, LVH. No prior echocardiogram in our system. Upon my evaluation, patient is quite sleepy. Reports improvement in her shortness of breath. No chest pain. Personally reviewed [facility] records and noted as below: Has history of seizure disorder, CHF, DM, PVD, history of PE, PAF, CKD, medication noncompliance. Has known diffuse MVCAD, which was discovered on [facility] 2021, not a candidate for bypass surgery due to unsuitable anatomy. Admitted to [facility] in September for DKA, NSTEMI, flu +. Was intubated from 09/15 to 09/22, Workup of altered mental status negative, including brain MRI, EEG. 09/13 blood cultures positive for MSSA bacteremia. DEMI negative for valvular heart disease. NSTEMI thought to be due to demand ischemia. LVEF noted to be 45%. Primary upper cutter machine is Dr. Rose Conn at [facility], last visit was in July 2024. Review of Systems Review of Systems: All systems reviewed & are unremarkable except as noted in HPI and below (HPI) [facility] Past Medical History Medical History Dyslipidemia Diabetes mellitus Social History Social History Smoking status: Current every day smoker Alcohol intake: never Substance use: never Do You Feel Safe in your Home?: Yes Lack of Transportation: No Lack of Food: Never True Current Housing: I Have Housing Concerned About Future Housing: No Difficulty Paying Gas/Electric Bills: No Difficulty Paying for Meds: No Currently Unemployed: No Education: High School Diploma/GED Difficulty w/ Childcare or Family Care: No Spiritual care concerns: No Meds Home Medications and Allergies Home Medications ?Medication ?Instructions ?Recorded ?Confirmed ?Type atorvastatin 80 mg tablet 80 mg PO DAILY 07/26/23 10/29/24 History bumetanide 1 mg tablet See Rx Instructions .Route .COMPLEX 07/26/23 10/29/24 History celecoxib 200 mg capsule 200 mg PO BID 07/26/23 10/29/24 History insulin detemir U-100 100 unit/mL 46 unit subcut DAILY 07/26/23 10/29/24 History subcutaneous solution (Levemir U-100 Insulin) insulin lispro 100 unit/mL See Rx Instructions .Route .COMPLEX 07/26/23 10/29/24 History subcutaneous solution (Humalog U-100 Insulin) metoprolol succinate 25 mg 25 mg PO DAILY 07/26/23 10/29/24 History tablet,extended release 24 hr ezetimibe 10 mg tablet 10 mg PO DAILY 10/29/23 10/29/24 History gabapentin 400 mg capsule See Rx Instructions .Route .COMPLEX 10/29/23 10/29/24 History docusate sodium 100 mg capsule 100 mg PO BID PRN constipation 08/20/24 10/29/24 Rx (Colace) #14 caps Allergies Allergy/AdvReac Type Severity Reaction Status Date / Time cephalexin (From [employer]) Allergy Unknown Unknown Verified 10/28/24 11:25 codeine Allergy Unknown Verified 10/28/24 11:25 erythromycin base Allergy Unknown Verified 10/28/24 11:25 Vital Signs Vital Signs - 24 hr 10/29/24 07:15 10/29/24 10:00 10/29/24 11:40 Temperature 36.3 C L 36.3 C L Pulse Rate 102 H 100 107 H Respiratory Rate 24 H 20 Blood Pressure 137/74 149/74 H Pulse Oximetry 97 98 Oxygen Delivery Oxygen Flow Rate 10/29/24 12:00 10/29/24 12:00 10/29/24 12:08 Temperature Pulse Rate 108 H 108 H Respiratory Rate Blood Pressure Pulse Oximetry 98 Oxygen Delivery Nasal Cannula Oxygen Flow Rate 4 10/29/24 14:00 10/29/24 16:00 Temperature 37.4 C Pulse Rate 98 102 H Respiratory Rate 22 H Blood Pressure 132/62 Pulse Oximetry 99 Oxygen Delivery Oxygen Flow Rate Exam Const: General: no acute distress HENMT: Mouth: Yes moist mucous membranes Eyes: General: appearance normal, both eyes and all related structures Sclera: sclerae normal Resp: Effort & Inspection: normal respiratory effort Auscultation: diminished lung sounds Cardio: Rate: regular rate Rhythm: regular rhythm Heart sounds: no murmurs Other: Bilateral lower extremity edema Skin: General skin exam: normal color Neuro: Other: Sleepy Results Labs and Meds 10/29/24 14:57 10/29/24 11:31 Lab results: Cardiac Enzymes 10/29/24 Range/Units 11:31 AST 30 (14-36) U/L Troponin I 0.373 H* (0.000-0.034) ng/mL Coagulation 10/29/24 Range/Units 14:57 PT 15.2 H (11.1-14.7) Seconds APTT 25.2 (22.3-36.8) Seconds CBC 10/29/24 10/29/24 Range/Units 11:31 14:57 WBC 9.3 8.6 (4.5-10.0) K/mm3 RBC 3.03 L 2.82 L (4.2-5.4) M/mm3 Hgb 8.6 L 8.1 L (12.0-15.0) g/dL Hct 30.1 L 27.0 L (37.0-47.0) % Plt Count 220 211 (150-375) k/mm3 Lymph # (Auto) 0.41 L 0.46 L (0.9-3.2) K/mm3 [place] # (Auto) 0.1 0.4 (0.1-0.6) K/mm3 Eos # (Auto) 0.0 0.0 (0-0.3) K/mm3 Baso # (Auto) 0.0 0.0 (0.0-0.1) K/mm3 Comprehensive Metabolic Panel 10/29/24 Range/Units 11:31 Sodium 137 (137-145) mmol/L Potassium 5.3 H (3.4-5.0) mmol/L Chloride 106 (98-107) mmol/L Carbon Dioxide 17 L (22-30) mmol/L BUN 59 H (7-17) mg/dL Creatinine 1.29 H (0.7-1.0) mg/dL Glucose 346 H (65-110) mg/dL Calcium 9.4 (8.4-10.2) mg/dL AST 30 (14-36) U/L ALT 22 (6-35) U/L Alkaline Phosphatase 252 H (38-126) U/L Total Protein 8.0 (6.3-8.2) g/dL Albumin 3.4 L (3.5-5.1) g/dL Intake and Output 10/29/24 10/29/24 10/29/24 07:59 15:59 23:59 Intake Total 600 Balance 600 Intake: Oral 600 Other: Number of Bowel Movements Today 2 Patient Weight 10/29/24 23:59 Weight 111.4 kg
[2024-10-29] MEDS: HEPARIN SOD/D5W 100 UNITS/ML 25,000 UNITS/250 ML BAG 9 UNITS IV CONT (18:00)
[2024-10-29] MEDS: FUROSEMIDE INJ 40 MG/4 ML VIAL IV PUSH (18:00)
[2024-10-29 20:02] LABS: Glucose Point of Care 329 mg/dl (65-105)
[2024-10-29] MEDS: GABAPENTIN 400 MG CAPSULE 1200 MG BY MOUTH (20:18)
[2024-10-30] VITALS (19 sets, daily range): BP systolic 102–116; BP diastolic 44–64; PULSE 81–160; RESP 14–24; TEMP 36.5–37.2; O2SAT 92–100
[2024-10-30 01:05] LABS: Partial Thromboplastin Time 27.2 Seconds (22.3-36.8)
[2024-10-30] MEDS: HEPARIN SODIUM 5,000 UNITS/ML VIAL 4000 UNITS IV PUSH ×2 (01:46→09:14)
[2024-10-30 05:42] LABS: Alanine Aminotransferase 20 U/L (6-35); Albumin Level 3.2 g/dL (3.5-5.1); Alkaline Phosphatase 221 U/L (38-126); Anion Gap 13 mmol/L (4-12); Aspartate Amino Transferase 21 U/L (14-36); Bilirubin,Total 0.6 mg/dL (0.2-1.3); Blood Urea Nitrogen 63 mg/dL (7-17); Calcium 9.2 mg/dL (8.4-10.2); Carbon Dioxide 20 mmol/L (22-30); Chloride 104 mmol/L (98-107); Estimated CRCL calculation 56 ml/min; Estimated Glomerular Filt Rate 41; Glucose 365 mg/dL (65-110); Magnesium 2.2 mg/dL (1.6-2.3); Potassium 4.2 mmol/L (3.4-5.0); Sodium 137 mmol/L (137-145)
[2024-10-30 06:13] LABS: Cholesterol 141 mg/dL (0-200); HDL Direct 39 mg/dL; Triglycerides 89 mg/dL (<150)
[2024-10-30] MEDS: HYDROcodone/acetaminophen (*CRX) 10-325 MG TABLET 1 TAB PO (06:18)
[2024-10-30 06:24] LABS: LDL Cholesterol Direct 69 mg/dL
[2024-10-30] MEDS: GABAPENTIN 400 MG CAPSULE BY MOUTH ×2 (07:45→13:26)
[2024-10-30 08:03] LABS: MRSA (PCR) NOT DETECTED (NOT DETECTE)
[2024-10-30 08:22] LABS: Basophils Percent Auto 0.2 % (0.2-1.2); Hematocrit 26.7 % (37.0-47.0); Immature Granulocyte Absolute 0.07 K/mm3 (0.00-0.031); Immature Granulocyte Percent A 0.7 % (0-0.5); Lymphocytes Percent Auto 5.6 % (18.3-44.2); Mean Corpuscular Hemoglobin 29.1 pg (26-34); Mean Corpuscular Volume 97.1 fl (80-100); Monocytes Absolute Auto 0.7 K/mm3 (0.1-0.6); Monocytes Percent Auto 6.7 % (2.6-8.5); Neutrophils Absolute Auto 9.3 K/mm3 (1.3-6.7); Neutrophils Percent Auto 86.8 % (45.5-73.1); Platelet Count Result 232 k/mm3 (150-375); Red Blood Count 2.75 M/mm3 (4.2-5.4); Red Cell Distribution Width 17.2 % (11.5-14.5); White Blood Count 10.7 K/mm3 (4.5-10.0)
[2024-10-30] MEDS: INSULIN ASPART (*BKC) 100 UNITS/ML 8 UNITS SUB-Q ×3 (08:46→16:50)
[2024-10-30] MEDS: INSULIN GLARGINE (*BKC) 100 UNITS/ML 46 UNITS SUB-Q (08:46)
[2024-10-30] MEDS: BENZONATATE 100 MG CAPSULE 200 MG PO ×3 (08:47→16:50)
[2024-10-30] MEDS: ATORVASTATIN 40 MG TABLET 80 MG PO (08:47)
[2024-10-30] MEDS: CYCLOBENZAPRINE HCL 10 MG TABLET PO ×3 (08:47→16:50)
[2024-10-30] MEDS: METOPROLOL SUCCINATE EXT REL 25 MG TABCR PO (08:47)
[2024-10-30] MEDS: CELECOXIB 200 MG CAPSULE PO ×2 (08:47→16:50)
[2024-10-30] MEDS: ASPIRIN 81 MG ENTERIC TABLET PO (08:47)
[2024-10-30] MEDS: EZETIMIBE 10 MG TABLET PO (08:47)
[2024-10-30] MEDS: FUROSEMIDE INJ 40 MG/4 ML VIAL IV PUSH ×2 (08:48→16:50)
[2024-10-30 08:49] LABS: Partial Thromboplastin Time 40.2 Seconds (22.3-36.8)
--- NOTE | 2024-10-30 08:52 | PM.IMPN ---
Progress Note: A&P Assessment and Plan (1) Acute exacerbation of CHF (congestive heart failure): Qualifiers: Heart failure type: unspecified Qualified Code(s): I50.9 - Heart failure, unspecified Code(s): I50.9 - Heart failure, unspecified Status: Inactive Assessment and Plan: Will continue with IV Lasix. Monitor I's and O's. Cardiology consult noted (2) Pneumonia: Qualifiers: Laterality: unspecified laterality Lung location: unspecified part of lung Pneumonia type: due to unspecified organism Qualified Code(s): J18.9 - Pneumonia, unspecified organism Code(s): J18.9 - Pneumonia, unspecified organism Status: Inactive Assessment and Plan: Continue with IV Levaquin. Repeat chest x-ray in the morning (3) Acute non-ST elevation myocardial infarction (NSTEMI): Code(s): I21.4 - Non-ST elevation (NSTEMI) myocardial infarction Status: Inactive Assessment and Plan: Cardiology consult noted. Current treatment. trend troponin Plan Acute on chronic hypoxemic respiratory From CHF and pneumonia CT showed bilateral pleural effusion with atelectasis and focal pneumonia Currently on 4 L oxygen, baseline is 2 L oxygen. Continue Bumex, and antibiotics Monitor. Elevated troponin Troponin at the facility 0.7 Started on aspirin, Lipitor, Metoprolol and heparin infusion Echo, A1c before. Cardiology consulted. CHF exacerbation No echo on file does unable to specify Patient presented with shortness of breath, leg edema orthopnea. He has a CT chest showed a urine effusion bilaterally atelectasis. Continue Bumex 2 mg t.i.d. Cardiology consulted. Pneumonia CT chest showed a right bundle Blood and sputum culture ordered MRSA pending Started on Levaquin Follow-up closely. Anemia Hemoglobin is 8.6 Iron panel on FOBT pending. Monitor H and H Type 2 diabetes Continue home Lantus Humalog insulin. Sliding scale insulin with Accu-Cheks. Chronic Garcia for urinary incontinence Discussed voiding trial but patient refuses. Continue Garcia per patient's preference History of stroke Continue aspirin and Lipitor No residual weakness Afib on Metoprolol and heparin infusion cardiology consulted DVT prophylaxis on heparin infusion. Do not resuscitate Health power of transactional attorney, Arnoldo Garcia Subjective Date/time seen: 10/30/24 08:52 Interval history: Patient was seen during the morning rounds today. Feeling slightly better. Decreased shortness of breath. No chest pain. No abdominal pain, no nausea no vomiting. Review of Systems Review of Systems: All other systems reviewed and negative except as noted in history above. Exam Narrative: General: alert and comfortable Eyes: EOMI, PERRLA ENNT External ears normal, Neck is supple, no masses, Respiratory systems: Air entry decreased, few rales at bases Cardiovascular S1, S2, normal rhythm, no murmur, rub, or gallop; no thrill or palpable murmurs on palpation. Gastrointestinal: soft, non-tender, and non-distended abdomen with no masses; BS present Skin: no rash, lesions, ulcerations, subcutaneous nodules or induration Musculoskeletal: Bilateral lower extremity edema 3+ Neurologic: Alert and oriented x3, non focal Mental Status Exam: normal affect Objective Data Vital Signs Vital Signs: Vital Signs - 24 hr 10/29/24 10:00 10/29/24 11:40 10/29/24 12:00 Temperature 36.3 C L Pulse Rate 100 107 H 108 H Respiratory Rate 20 Blood Pressure 149/74 H Pulse Oximetry 98 Oxygen Delivery Oxygen Flow Rate 10/29/24 12:00 10/29/24 12:08 10/29/24 14:00 Temperature Pulse Rate 108 H 98 Respiratory Rate Blood Pressure Pulse Oximetry 98 Oxygen Delivery Nasal Cannula Oxygen Flow Rate 4 10/29/24 16:00 10/29/24 16:00 10/29/24 16:00 Temperature 37.4 C Pulse Rate 102 H 98 Respiratory Rate 22 H Blood Pressure 132/62 Pulse Oximetry 99 97 Oxygen Delivery Nasal Cannula Oxygen Flow Rate 2 10/29/24 18:00 10/29/24 20:00 10/29/24 20:00 Temperature Pulse Rate 102 H 99 Respiratory Rate Blood Pressure Pulse Oximetry 98 Oxygen Delivery Nasal Cannula Oxygen Flow Rate 2 10/29/24 20:06 10/29/24 22:00 10/29/24 23:55 Temperature 37.3 C Pulse Rate 102 H 99 79 Respiratory Rate 24 H 425 H Blood Pressure 105/49 L Pulse Oximetry 98 98 Oxygen Delivery Autopap Oxygen Flow Rate 10/29/24 23:56 10/30/24 00:00 10/30/24 00:00 Temperature 37.2 C Pulse Rate 98 101 H Respiratory Rate 22 H Blood Pressure 114/58 L Pulse Oximetry 98 98 Oxygen Delivery Nasal Cannula Oxygen Flow Rate 2 10/30/24 02:00 10/30/24 04:00 10/30/24 04:00 Temperature Pulse Rate 96 91 Respiratory Rate Blood Pressure Pulse Oximetry 96 Oxygen Delivery Nasal Cannula Oxygen Flow Rate 2 10/30/24 04:55 10/30/24 06:00 10/30/24 08:00 Temperature 37.1 C 36.5 C Pulse Rate 91 98 98 Respiratory Rate 24 H 20 Blood Pressure 108/62 112/55 L Pulse Oximetry 98 97 Oxygen Delivery Oxygen Flow Rate 10/30/24 08:47 Temperature Pulse Rate 97 Respiratory Rate Blood Pressure Pulse Oximetry Oxygen Delivery Oxygen Flow Rate Intake/Output Intake/Output: Intake & Output 10/27/24 10/28/24 10/29/24 10/30/24 23:59 23:59 23:59 23:59 Intake Total 1390 869.9 Output Total 1600 1300 Balance -210 -430.1 Meds/Results Medications: Active Medications Generic Name Dose Route Start Last Admin Trade Name Freq PRN Reason Stop Dose Admin Hydrocodone Bitart/Acetaminophen 1 tab 10/30/24 05:59 10/30/24 06:18 Hydrocodone/Acetaminophen (*Crx) 10-325 Mg Tablet PO 1 tab BID PRN Administration pain Aspirin 81 mg 10/30/24 09:00 10/30/24 08:47 Aspirin 81 Mg Enteric Tablet PO 81 mg QAM SIRISHA Administration Atorvastatin Calcium 80 mg 10/29/24 11:15 10/30/24 08:47 Atorvastatin 40 Mg Tablet PO 80 mg DAILY SIRISHA Administration Benzonatate 200 mg 10/29/24 17:00 10/30/24 08:47 Benzonatate 100 Mg Capsule PO 200 mg TID SIRISHA Administration Celecoxib 200 mg 10/29/24 17:00 10/30/24 08:47 Celecoxib 200 Mg Capsule PO 200 mg BIDWM SIRISHA Administration Cyclobenzaprine HCl 10 mg 10/30/24 09:00 10/30/24 08:47 Cyclobenzaprine Hcl 10 Mg Tablet PO 10 mg TID SIRISHA Administration Docusate Sodium 100 mg 10/29/24 11:10 Docusate Sodium 100 Mg Capsule PO BID PRN constipation Ezetimibe 10 mg 10/29/24 11:20 10/30/24 08:47 Ezetimibe 10 Mg Tablet PO 10 mg DAILY SIRISHA Administration Furosemide 40 mg 10/29/24 17:10 10/30/24 08:48 Furosemide Inj 40 Mg/4 Ml Vial IV PUSH 40 mg BID SIRISHA Administration Gabapentin 400 mg 10/29/24 14:00 10/30/24 07:45 Gabapentin 400 Mg Capsule BY MOUTH 400 mg 0700,1400 SIRISHA Administration Gabapentin 1,200 mg 10/29/24 21:00 10/29/24 20:18 Gabapentin 400 Mg Capsule BY MOUTH 1,200 mg QHS SIRISHA Administration Heparin Sodium (Porcine) 4,000 units 10/29/24 14:42 10/30/24 01:46 Heparin Sodium 5,000 Units/Ml Vial IV PUSH 4,000 units PRN PRN Administration aPTT less than 55 seconds Heparin Sodium (Porcine) 3,000 units 10/29/24 14:42 Heparin Sodium 5,000 Units/Ml Vial IV PUSH PRN PRN aPTT 55 - 70 seconds Levofloxacin/Dextrose 750 mg in 150 mls @ 100 mls/hr 10/29/24 17:00 10/29/24 16:49 Levaquin 750 Mg/D5w 150 Ml IVPB 100 mls/hr Q24H SIRISHA Administration Heparin Sodium/Dextrose 25,000 units in 250 mls @ 12 mls/hr 10/29/24 14:45 10/30/24 01:46 Heparin Sodium/D5w 100 Units/Ml IV CONT 1,200 units/hr .[id number] SIRISHA 12 mls/hr Titration Protocol 1,200 UNITS/HR Insulin Aspart 8 units 10/29/24 12:00 10/30/24 08:46 Insulin Aspart (*Bkc) 100 Units/Ml SUB-Q 8 units TIDWM SIRISHA Administration Insulin Glargine 46 units 10/30/24 09:00 10/30/24 08:46 Insulin Glargine (*Bkc) 100 Units/Ml SUB-Q 46 units DAILY SIRISHA Administration Metoprolol Succinate 25 mg 10/29/24 11:25 10/30/24 08:47 Metoprolol Succinate Ext Rel 25 Mg Tabcr PO 25 mg DAILY SIRISHA Administration Non-Formulary Medication 2.5 mg 10/30/24 09:00 Tirzepatide [Mounjaro] SUB-Q 11/29/24 08:59 WEEKLY SIRISHA Non-Formulary Medication 3 mg 10/30/24 09:00 Plecanatide [Trulance] PO 11/29/24 08:59 DAILY [facility] Pantoprazole Sodium 40 mg 10/30/24 09:00 Pantoprazole 40 Mg Tablet PO QAM [facility] Perflutren Lipid Microsphere 0 ml 10/29/24 11:02 Perflutren Lipid Microspheres 1.5 Ml Vial Diluted To 10 Ml Total Volume IV PUSH 11/01/24 11:04 ONCE PRN adequate visualization Protocol Polysaccharide Iron Complex 150 mg 10/31/24 08:00 Polysaccharide Iron Complex 150 Mg Capsule PO DAILY@0800 [facility] Radiology Results: ITS Impressions Chest X-Ray 10/29/24 11:27 Impression: 1: Cardiomegaly with mild interstitial edema. Labs Labs: Laboratory Results - last 24 hr 10/29/24 10/29/24 10/29/24 06:27 09:10 11:01 WBC RBC Hgb Hct MCV MCH MCHC RDW Plt Count MPV Immature Gran % (Auto) Neut % (Auto) Lymph % (Auto) [place] % (Auto) Eos % (Auto) Baso % (Auto) Lymph # (Auto) [place] # (Auto) Eos # (Auto) Baso # (Auto) Abs Immat Gran (auto) Absolute Neuts (auto) Absolute Nucleated RBC Band Neutrophils % Nucleated RBC % Platelet Estimate Anisocytosis [place] Cells Schistocytes PT INR APTT Sodium Potassium Chloride Carbon Dioxide Anion Gap BUN Creatinine Estim Creat Clear Calc Estimated GFR Glucose POC Capillary Glucose 307 H 320 H Calcium Magnesium Iron TIBC % Saturation Ferritin Total Bilirubin AST ALT Alkaline Phosphatase Troponin I Total Protein Albumin Triglycerides Cholesterol LDL Cholesterol Direct HDL Direct Nasal MRSA (PCR) Not detected 10/29/24 10/29/24 10/29/24 11:31 14:57 16:10 WBC 9.3 8.6 RBC 3.03 L 2.82 L Hgb 8.6 L 8.1 L Hct 30.1 L 27.0 L MCV 99.3 95.7 MCH 28.4 28.7 MCHC 28.6 L 30.0 L RDW 17.1 H 16.9 H Plt Count 220 211 MPV 11.8 H 11.4 H Immature Gran % (Auto) 1.1 H 1.5 H Neut % (Auto) 92.6 H 88.6 H Lymph % (Auto) 4.4 L 5.3 L [place] % (Auto) 1.5 L 4.4 Eos % (Auto) 0.0 0.0 Baso % (Auto) 0.4 0.2 Lymph # (Auto) 0.41 L 0.46 L [place] # (Auto) 0.1 0.4 Eos # (Auto) 0.0 0.0 Baso # (Auto) 0.0 0.0 Abs Immat Gran (auto) 0.10 H 0.13 H Absolute Neuts (auto) 8.6 H 7.6 H Absolute Nucleated RBC 0.000 0.000 Band Neutrophils % Not Reportable Nucleated RBC % 0.0 0.0 Platelet Estimate Adequate Anisocytosis 1+ Moon Cells 1+ Schistocytes None seen PT 15.2 H INR 1.2 APTT 25.2 Sodium 137 Potassium 5.3 H Chloride 106 Carbon Dioxide 17 L Anion Gap 14 H BUN 59 H Creatinine 1.29 H Estim Creat Clear Calc 59 Estimated GFR 44 L Glucose 346 H POC Capillary Glucose 342 H Calcium 9.4 Magnesium Iron 25 L TIBC 221 L % Saturation 11 L Ferritin 375.00 H Total Bilirubin 1.0 AST 30 ALT 22 Alkaline Phosphatase 252 H Troponin I 0.373 H* Total Protein 8.0 Albumin 3.4 L Triglycerides Cholesterol LDL Cholesterol Direct HDL Direct Nasal MRSA (PCR) 10/29/24 10/30/24 10/30/24 19:56 00:33 05:08 WBC RBC Hgb Hct MCV MCH MCHC RDW Plt Count MPV Immature Gran % (Auto) Neut % (Auto) Lymph % (Auto) [place] % (Auto) Eos % (Auto) Baso % (Auto) Lymph # (Auto) [place] # (Auto) Eos # (Auto) Baso # (Auto) Abs Immat Gran (auto) Absolute Neuts (auto) Absolute Nucleated RBC Band Neutrophils % Nucleated RBC % Platelet Estimate Anisocytosis Moon Cells Schistocytes PT INR APTT 27.2 Sodium 137 Potassium 4.2 Chloride 104 Carbon Dioxide 20 L Anion Gap 13 H BUN 63 H Creatinine 1.36 H Estim Creat Clear Calc 56 Estimated GFR 41 L Glucose 365 H POC Capillary Glucose 329 H Calcium 9.2 Magnesium 2.2 Iron TIBC % Saturation Ferritin Total Bilirubin 0.6 AST 21 ALT 20 Alkaline Phosphatase 221 H Troponin I Total Protein 7.0 Albumin 3.2 L Triglycerides 89 Cholesterol 141 LDL Cholesterol Direct 69 HDL Direct 39 Nasal MRSA (PCR) 10/30/24 08:12 WBC 10.7 H RBC 2.75 L Hgb 8.0 L Hct 26.7 L MCV 97.1 MCH 29.1 MCHC 30.0 L RDW 17.2 H Plt Count 232 MPV 12.0 H Immature Gran % (Auto) 0.7 H Neut % (Auto) 86.8 H Lymph % (Auto) 5.6 L [place] % (Auto) 6.7 Eos % (Auto) 0.0 Baso % (Auto) 0.2 Lymph # (Auto) 0.60 L [place] # (Auto) 0.7 H Eos # (Auto) 0.0 Baso # (Auto) 0.0 Abs Immat Gran (auto) 0.07 H Absolute Neuts (auto) 9.3 H Absolute Nucleated RBC 0.000 Band Neutrophils % Nucleated RBC % 0.0 Platelet Estimate Anisocytosis [place] Cells Schistocytes PT INR APTT 40.2 H Sodium Potassium Chloride Carbon Dioxide Anion Gap BUN Creatinine Estim Creat Clear Calc Estimated GFR Glucose POC Capillary Glucose Calcium Magnesium Iron TIBC % Saturation Ferritin Total Bilirubin AST ALT Alkaline Phosphatase Troponin I Total Protein Albumin Triglycerides Cholesterol LDL Cholesterol Direct HDL Direct Nasal MRSA (PCR)
[2024-10-30] MEDS: PANTOPRAZOLE 40 MG TABLET PO (09:16)
[2024-10-30 10:03] LABS: Glucose Point of Care 352 mg/dl (65-105)
--- NOTE | 2024-10-30 11:02 | PM.CNPUL ---
Assessment and Plan Assessment and plan (1) CHF (congestive heart failure): Code(s): I50.9 - Heart failure, unspecified Status: Acute (2) Pleural effusion: Code(s): J90 - Pleural effusion, not elsewhere classified Status: Acute Assessment and Plan: This 78-year-old female with a history of severe obesity and multiple comorbidities, including diabetes mellitus and coronary artery disease, presented with shortness of breath and lower extremity edema. Diagnostic studies revealed bilateral pleural effusion with associated atelectasis, particularly on the left side, and no evidence of a lower respiratory tract infection. The patient has been receiving antibiotics for possible pneumonia, although the left lower lobe infiltrate is most likely due to atelectasis from the pleural effusion on the left. Notably, approximately 7 weeks ago, the patient had no pleural effusions when she was seen in the emergency room for chest pain related to an acute rib fracture. On admission, there was no evidence of hypercapnia, although her clinical history suggests possible sleep-disordered breathing. She has a right lower lobe lung nodule measuring 6 mm for which she will need further monitoring as an outpatient The plan is to continue treatment for congestive heart failure, discontinue antibiotics as there is no evidence of a lower respiratory tract infection, and conduct an ApneaLink study prior to discharge to evaluate for sleep-disordered breathing. We will continue to monitor the patient. (3) Obesity: Code(s): E66.9 - Obesity, unspecified Status: Acute (4) Hypoxia: Code(s): R09.02 - Hypoxemia Status: Acute History of Present Illness History of Present Illness Consult date: 10/30/24 Chief complaint: NSTEMI, sepsis, UTI, CHF, anemia Narrative: This 48-year-old female presented with progressively worsening shortness of breath and lower extremity edema. She has multiple medical conditions, including diabetes mellitus, congestive heart failure, intermittent atrial fibrillation previous stroke, coronary artery disease, and urinary incontinence with a chronic indwelling catheter. Initially, she presented to [facility] for shortness of breath and was transferred to [facility] due to elevated troponin levels. The patient reported experiencing shortness of breath for the past 3 months, with lower extremity edema becoming more pronounced over the last 2 weeks. She has a mild dry cough without sputum production, and she complains of wheezing and some non-acute shaking. Previously hospitalized at a different facility for similar symptoms, she has been on 2 liters/minute of oxygen for the past 2 weeks. Although she has no prior history of lung disease, she has smoked half a pack per day for 30 years. With a history of severe obesity, a sleep study was recommended to rule out sleep-disordered breathing, which she never underwent; however, she acknowledges experiencing morning somnolence and tiredness upon waking. She uses albuterol nebulized medication as needed. A CT pulmonary angiogram revealed bilateral pleural effusions, worse on the left, with associated atelectasis, and a 6 mm nodule in the right lower lobe. Approximately 7 weeks ago, she was evaluated in the emergency room following a fall, where a chest X-ray showed a rib fracture but no lung infiltrates or pleural effusions. Her medical history also includes coronary artery disease. During this hospitalization, she was evaluated by Cardiology Services and is currently receiving treatment for congestive heart failure. Review of Systems Review of Systems: All systems reviewed & are unremarkable except as noted in HPI and below (HPI and below) PMFSH Past Medical History Medical History Dyslipidemia Diabetes mellitus Social History Social History Smoking status: Current every day smoker Alcohol intake: never Substance use: never Do You Feel Safe in your Home?: Yes Lack of Transportation: No Lack of Food: Never True Current Housing: I Have Housing Concerned About Future Housing: No Difficulty Paying Gas/Electric Bills: No Difficulty Paying for Meds: No Currently Unemployed: No Education: High School Diploma/GED Difficulty w/ Childcare or Family Care: No Spiritual care concerns: No Meds Home Medications and Allergies Home Medications ?Medication ?Instructions ?Recorded ?Confirmed ?Type atorvastatin 80 mg tablet 80 mg PO DAILY 07/26/23 10/29/24 History bumetanide 1 mg tablet See Rx Instructions .Route .COMPLEX 07/26/23 10/29/24 History celecoxib 200 mg capsule 200 mg PO BID 07/26/23 10/29/24 History insulin detemir U-100 100 unit/mL 46 unit subcut DAILY 07/26/23 10/29/24 History subcutaneous solution (Levemir U-100 Insulin) insulin lispro 100 unit/mL See Rx Instructions .Route .COMPLEX 07/26/23 10/29/24 History subcutaneous solution (Humalog U-100 Insulin) metoprolol succinate 25 mg 25 mg PO DAILY 07/26/23 10/29/24 History tablet,extended release 24 hr ezetimibe 10 mg tablet 10 mg PO DAILY 10/29/23 10/29/24 History gabapentin 400 mg capsule See Rx Instructions .Route .COMPLEX 10/29/23 10/29/24 History docusate sodium 100 mg capsule 100 mg PO BID PRN constipation 08/20/24 10/29/24 Rx (Colace) #14 caps albuterol sulfate 5 mg/mL(0.5 %) 2.5 mg inhalation Q6H PRN 10/30/24 10/30/24 History solution for nebulization shortness of breath or wheezing cyclobenzaprine 10 mg tablet 10 mg PO TID 10/30/24 10/30/24 History famotidine 20 mg tablet 20 mg PO Q12H 10/30/24 10/30/24 History hydrocodone 10 mg-acetaminophen 1 tablet PO BID PRN pain 10/30/24 10/30/24 History 325 mg tablet plecanatide 3 mg tablet (Trulance) 3 mg PO DAILY 10/30/24 10/30/24 History potassium chloride 20 mEq 20 meq PO DAILY 10/30/24 10/30/24 History tablet,extended release(part/cryst) rivaroxaban 10 mg tablet (Xarelto) 10 mg PO DAILY 10/30/24 10/30/24 History tirzepatide 2.5 mg/0.5 mL 2.5 mg subcut WEEKLY 10/30/24 10/30/24 History subcutaneous pen injector (Mounjaro) Allergies Allergy/AdvReac Type Severity Reaction Status Date / Time cephalexin (From [employer]) Allergy Unknown Unknown Verified 10/28/24 11:25 codeine Allergy Unknown Verified 10/28/24 11:25 erythromycin base Allergy Unknown Verified 10/28/24 11:25 Vital Signs Vital Signs - 24 hr 10/29/24 11:40 10/29/24 12:00 10/29/24 12:00 Temperature 36.3 C L Pulse Rate 107 H 108 H Respiratory Rate 20 Blood Pressure 149/74 H Pulse Oximetry 98 98 Oxygen Delivery Nasal Cannula Oxygen Flow Rate 4 10/29/24 12:08 10/29/24 14:00 10/29/24 16:00 Temperature 37.4 C Pulse Rate 108 H 98 102 H Respiratory Rate 22 H Blood Pressure 132/62 Pulse Oximetry 99 Oxygen Delivery Oxygen Flow Rate 10/29/24 16:00 10/29/24 16:00 10/29/24 18:00 Temperature Pulse Rate 98 102 H Respiratory Rate Blood Pressure Pulse Oximetry 97 Oxygen Delivery Nasal Cannula Oxygen Flow Rate 2 10/29/24 20:00 10/29/24 20:00 10/29/24 20:06 Temperature 37.3 C Pulse Rate 99 102 H Respiratory Rate 24 H Blood Pressure 105/49 L Pulse Oximetry 98 98 Oxygen Delivery Nasal Cannula Oxygen Flow Rate 2 10/29/24 22:00 10/29/24 23:55 10/29/24 23:56 Temperature 37.2 C Pulse Rate 99 79 98 Respiratory Rate 425 H 22 H Blood Pressure 114/58 L Pulse Oximetry 98 98 Oxygen Delivery Autopap Oxygen Flow Rate 10/30/24 00:00 10/30/24 00:00 10/30/24 02:00 Temperature Pulse Rate 101 H 96 Respiratory Rate Blood Pressure Pulse Oximetry 98 Oxygen Delivery Nasal Cannula Oxygen Flow Rate 2 10/30/24 04:00 10/30/24 04:00 10/30/24 04:55 Temperature 37.1 C Pulse Rate 91 91 Respiratory Rate 24 H Blood Pressure 108/62 Pulse Oximetry 96 98 Oxygen Delivery Nasal Cannula Oxygen Flow Rate 2 10/30/24 06:00 10/30/24 08:00 10/30/24 08:47 Temperature 36.5 C Pulse Rate 98 98 97 Respiratory Rate 20 Blood Pressure 112/55 L Pulse Oximetry 97 Oxygen Delivery Oxygen Flow Rate Exam Narrative: GENERAL APPEARANCE: Well developed, well nourished, alert and cooperative, morbidly obese and appears to be in no acute distress while on supplemental oxygen via nasal cannula SKIN: Inspection of the skin reveals no rashes, ulcerations or petechiae. HEENT: Sclerae anicteric and conjunctivae pink and moist. Extraocular movements were intact and pupils were equal, round. NECK: Supple. There was no thyroid enlargement, and no tenderness, or masses were felt. CHEST: Normal AP diameter and normal contour without any kyphoscoliosis. LUNGS: Decreased breath sounds at left base posteriorly otherwise clear lungs CARDIAC: There was a regular rate and rhythm without any murmurs ABDOMEN: Soft and nontender with normal bowel sounds. There was no organomegaly. LYMPH NODES: No lymphadenopathy was appreciated in the neck,. EXTREMITIES: No cyanosis, clubbing. Trace pedal edema NEUROLOGIC: Alert and oriented x 3. Normal affect. Results Laboratory Findings 10/30/24 08:12 10/30/24 05:08 ABG, PT/INR, D-dimer: PT/INR, D-dimer PT 15.2 Seconds (11.1-14.7) H 10/29/24 14:57 INR 1.2 10/29/24 14:57 Abnormal lab findings: Abnormal Labs 10/29/24 10/29/24 10/29/24 09:10 11:01 11:31 WBC RBC 3.03 L Hgb 8.6 L Hct 30.1 L MCHC 28.6 L RDW 17.1 H MPV 11.8 H Immature Gran % (Auto) 1.1 H Neut % (Auto) 92.6 H Lymph % (Auto) 4.4 L [place] % (Auto) 1.5 L Lymph # (Auto) 0.41 L [place] # (Auto) Abs Immat Gran (auto) 0.10 H Absolute Neuts (auto) 8.6 H PT APTT Potassium 5.3 H Carbon Dioxide 17 L Anion Gap 14 H BUN 59 H Creatinine 1.29 H Estimated GFR 44 L Glucose 346 H POC Capillary Glucose 307 H 320 H Iron TIBC % Saturation Ferritin Alkaline Phosphatase 252 H Troponin I 0.373 H* Albumin 3.4 L 10/29/24 10/29/24 10/29/24 14:57 16:10 19:56 WBC RBC 2.82 L Hgb 8.1 L Hct 27.0 L MCHC 30.0 L RDW 16.9 H MPV 11.4 H Immature Gran % (Auto) 1.5 H Neut % (Auto) 88.6 H Lymph % (Auto) 5.3 L [place] % (Auto) Lymph # (Auto) 0.46 L [place] # (Auto) Abs Immat Gran (auto) 0.13 H Absolute Neuts (auto) 7.6 H PT 15.2 H APTT Potassium Carbon Dioxide Anion Gap BUN Creatinine Estimated GFR Glucose POC Capillary Glucose 342 H 329 H Iron 25 L TIBC 221 L % Saturation 11 L Ferritin 375.00 H Alkaline Phosphatase Troponin I Albumin 10/30/24 10/30/24 10/30/24 05:08 08:05 08:12 WBC 10.7 H RBC 2.75 L Hgb 8.0 L Hct 26.7 L MCHC 30.0 L RDW 17.2 H MPV 12.0 H Immature Gran % (Auto) 0.7 H Neut % (Auto) 86.8 H Lymph % (Auto) 5.6 L [place] % (Auto) Lymph # (Auto) 0.60 L [place] # (Auto) 0.7 H Abs Immat Gran (auto) 0.07 H Absolute Neuts (auto) 9.3 H PT APTT 40.2 H Potassium Carbon Dioxide 20 L Anion Gap 13 H BUN 63 H Creatinine 1.36 H Estimated GFR 41 L Glucose 365 H POC Capillary Glucose 352 H Iron TIBC % Saturation Ferritin Alkaline Phosphatase 221 H Troponin I Albumin 3.2 L
[2024-10-30 15:30] LABS: Glucose Point of Care 390 mg/dl (65-105)
[2024-10-30 16:43] LABS: Glucose Point of Care 286 mg/dl (65-105)
[2024-10-30] MEDS: levoFLOXacin 750 MG/D5W 150 ML 750 MG/150 ML BAG 100 MG IVPB (16:55)
[2024-10-30] MEDS: RIVAROXABAN 10 MG TABLET PO (17:40)
[2024-10-30 20:25] LABS: Glucose Point of Care 244 mg/dl (65-105)
[2024-10-30] MEDS: GABAPENTIN 400 MG CAPSULE 1200 MG BY MOUTH (21:44)
[2024-10-31] VITALS (13 sets, daily range): BP systolic 98–130; BP diastolic 55–61; PULSE 78–94; RESP 16–23; TEMP 36.4–36.9; O2SAT 94–100
--- NOTE | 2024-10-31 | ECHO_ITS ---
Patient Info Name: Brooke Garcia Age: 48 years : 1975 Gender: Female Ht: 65 in Wt: 245 lbs BSA: 2.31 m2 HR: 81 bpm BP: 120 / 56 mmHg Heart Rhythm: Sinus Rhythm Technical Quality: Fair Exam Date: 10/31/2024 3:09 PM Exam Location: Echo Lab Patient Status: Inpatient Admit Date: 10/29/2024 Staff Ordering Physician: Storm Ruelas MD Composition Weatherboard Installer: Yulissa Hernandez RDCS Attending Provider: tSorm Ruelas MD Exam Type: CA echo dop color flow w con Study Info Indications R06.02 - Shortness of breath Complete two-dimensional, color flow and Doppler transthoracic echocardiogram is performed with contrast to opacify the left ventricle and to improve the deliniation of the left ventricle endocardial borders. Contrast/Agitated Saline Contrast/Ag. Saline: Definity Amount: 2.00 ml Administered By: Yulissa Hernandez RDCS Existing IV Access: Yes IV Access Condition: patent with no signs of infiltration Summary 1. Left ventricular chamber dimension is mildly enlarged. 2. Left ventricular systolic function is severely reduced, estimated at 25-30%. 3. The left ventricular diastolic function is grade I diastolic dysfunction. 4. Right ventricular systolic function is normal. 5. There is mild mitral valve regurgitation. 6. There is mild tricuspid valve regurgitation. 7. Left pleural effusion noted. Left Ventricle Left ventricular chamber dimension is mildly enlarged. Left ventricular systolic function is severely reduced, estimated at 25-30%. There is no increased left ventricular wall thickness. The left ventricular diastolic function is grade I diastolic dysfunction. Right Ventricle Right ventricular chamber dimension is normal. Right ventricular systolic function is normal. Left Atria Left atrial chamber dimension is normal. Right Atria Right atrial chamber dimension is normal. Atrial Septum Intact interatrial septum visualized by color flow imaging. Aortic Valve The aortic valve is trileaflet. There is no aortic valve stenosis. There is no aortic valve regurgitation. There is mild aortic valve calcification. Pulmonic Valve The pulmonic valve is not well visualized. There is no pulmonic regurgitation. Mitral Valve The mitral valve has thickened leaflets. There is mild mitral valve regurgitation. Tricuspid Valve There is mild tricuspid valve regurgitation. Pericardium/Pleural Left pleural effusion noted. There is no pericardial effusion. Inferior Vena Cava Dilated inferior vena cava with <50% collapse upon inspiration consistent with elevated right atrial pressure, 15 mmHg. Aorta The aortic root size at the sinus of Valsalva is normal. Left Ventricular Outflow Tract Name Value Normal LVOT 2D LVOT Diameter 2.04 cm LVOT Doppler LVOT Peak Gradient 2 mmHg LVOT Mean Gradient 1 mmHg LVOT VTI 13.14 cm LVOT VTI/AV VTI Ratio 0.61 LVOT Stroke Volume 42.84 ml LVOT CO 3.65 l/min LVOT CI 1.58 L/min/m2 Pulmonic Valve Name Value Normal RVOT Doppler RVOT Peak Gradient 2 mmHg PV Doppler PV Peak Gradient 2 mmHg Mitral Valve Name Value Normal MV Doppler MV Decel Mckinley 1,016.71 cm/s2 MV PHT 0 s MV Area (PHT) 6.32 cm2 4.00-5.00 MV Diastolic Function MV E Peak Velocity 122.02 cm/s MV A Peak Velocity 77.26 cm/s MV E/A 1.58 MV Decel Time 0 s MV Annular TDI MV E/e' (Septal) 23.50 <=8.00 MV E/e' (Lateral) 25.90 <=8.00 MV E/e' (Average) 24.70 Tricuspid Valve Name Value Normal TV Regurgitation Doppler TR Peak Velocity 190.72 cm/s TR Peak Gradient 13 mmHg Estimated PAP/RSVP RA Pressure 15 mmHg <=5 PA Systolic Pressure 30 mmHg <36 RV Systolic Pressure 30 mmHg <36 Aorta Name Value Normal Ascending Aorta Ao Root Diameter (MM) 2.72 cm Ao Root Diam Index (MM) 1.18 cm/m2 Aortic Valve Name Value Normal AV Doppler AV Peak Velocity 125.50 cm/s AV Peak Gradient 6 mmHg AV Mean Gradient 3 mmHg AV VTI 21.46 cm AV Area (Cont Eq VTI) 2.00 cm2 >=3.00 AV Area (Cont Eq Tyler) 1.90 cm2 AV Regurgitation 2D LVOT Area 3.26 cm2 Ventricles Name Value Normal LV Dimensions 2D/MM IVS Diastolic Thickness (2D) 0.94 cm 0.60-1.00 LVID Diastole (2D) 5.73 cm 3.80-5.20 LVIW Diastolic Thickness (2D) 0.79 cm 0.60-0.90 LVID Systole (2D) 4.71 cm 2.20-3.50 LVOT Diameter 2.04 cm LV Mass (2D Cubed) 189.48 g 67.00-162.00 LV Mass Index (2D Cubed) 0.01 g/cm2 0.00-0.01 Relative Wall Thickness (2D) 0.28 LV Fractional Shortening/Ejection Fraction 2D/MM LV Fractional Shortening (2D) 18 % 27-45 LV EF (2D Teicholz) 36 % 54-74 LV Diastolic Volume (4C MOD) 142.47 ml LV EF (4C MOD) 29 % LV Diastolic Volume (2C MOD) 122.71 ml LV EF (2C MOD) 24 % LV Diastolic Volume (BP MOD) 135.67 ml 46.00-106.00 LV Diastolic Volume Index (BP MOD) 0.06 l/m2 0.03-0.06 LV Systolic Volume (BP MOD) 99.59 ml 14.00-42.00 LV Systolic Volume Index (BP MOD) 0.04 l/m2 0.01-0.02 LV EF (BP MOD) 27 % 54-74 LV Diastolic Length (4C) 8.99 cm LV Systolic Length (4C) 7.84 cm LV Stroke Volume (4C MOD) 40.74 ml Atria Name Value Normal LA Dimensions LA Dimension (MM) 4.54 cm 2.70-3.80 LA Volume (4C A-L) 49.37 ml LA Volume (BP A-L) 58.39 ml RA Dimensions RA Area (4C) 14.38 cm2 <=18.00 Report Signatures
[2024-10-31] MEDS: GABAPENTIN 400 MG CAPSULE BY MOUTH ×2 (06:29→13:52)
[2024-10-31 06:35] LABS: Basophils Percent Auto 0.3 % (0.2-1.2); Eosinophils Absolute Auto 0.1 K/mm3 (0-0.3); Hematocrit 24.8 % (37.0-47.0); Hemoglobin 7.4 g/dL (12.0-15.0); Immature Granulocyte Absolute 0.04 K/mm3 (0.00-0.031); Immature Granulocyte Percent A 0.6 % (0-0.5); Lymphocytes Absolute Auto 1.26 K/mm3 (0.9-3.2); Lymphocytes Percent Auto 19.8 % (18.3-44.2); Mean Corpuscular HGB Conc 29.8 g/dl (32-36); Mean Corpuscular Hemoglobin 29.1 pg (26-34); Mean Corpuscular Volume 97.6 fl (80-100); Mean Platelet Volume 11.4 fl (7.4-10.4); Monocytes Absolute Auto 0.6 K/mm3 (0.1-0.6); Neutrophils Absolute Auto 4.3 K/mm3 (1.3-6.7); Neutrophils Percent Auto 68.3 % (45.5-73.1); Platelet Count Result 161 k/mm3 (150-375); Red Blood Count 2.54 M/mm3 (4.2-5.4); Red Cell Distribution Width 17.2 % (11.5-14.5); White Blood Count 6.4 K/mm3 (4.5-10.0)
[2024-10-31 06:49] LABS: Alanine Aminotransferase 17 U/L (6-35); Albumin Level 2.8 g/dL (3.5-5.1); Alkaline Phosphatase 175 U/L (38-126); Anion Gap 8 mmol/L (4-12); Aspartate Amino Transferase 16 U/L (14-36); Bilirubin,Total 0.2 mg/dL (0.2-1.3); Blood Urea Nitrogen 62 mg/dL (7-17); Calcium 8.5 mg/dL (8.4-10.2); Carbon Dioxide 26 mmol/L (22-30); Chloride 104 mmol/L (98-107); Estimated CRCL calculation 46 ml/min; Estimated Glomerular Filt Rate 34; Glucose 316 mg/dL (65-110); Potassium 4.3 mmol/L (3.4-5.0); Sodium 138 mmol/L (137-145)
[2024-10-31 06:56] LABS: Anisocytosis 1+; Burr Cells 1+; Hypochromasia 1+; Platelet Estimate Adequate (Adequate); Schistocytes None Seen
[2024-10-31 07:00] LABS: Troponin I 0.328 ng/mL (0.000-0.034)
[2024-10-31 07:57] LABS: Glucose Point of Care 273 mg/dl (65-105)
[2024-10-31 08:28] LABS: Iron 54 ug/dL (37-170)
[2024-10-31 08:31] LABS: Lactate Dehydrogenase 195 U/L (120-246)
[2024-10-31 08:38] LABS: Percent Iron Saturation 24 % (20-50)
[2024-10-31 08:39] LABS: Transferrin 157 mg/dL (206-381)
[2024-10-31] MEDS: CYCLOBENZAPRINE HCL 10 MG TABLET PO ×3 (08:43→17:12)
[2024-10-31] MEDS: BENZONATATE 100 MG CAPSULE 200 MG PO ×3 (08:43→17:12)
[2024-10-31] MEDS: ATORVASTATIN 40 MG TABLET 80 MG PO (08:43)
[2024-10-31] MEDS: EZETIMIBE 10 MG TABLET PO (08:43)
[2024-10-31] MEDS: ASPIRIN 81 MG ENTERIC TABLET PO (08:44)
[2024-10-31] MEDS: FUROSEMIDE INJ 40 MG/4 ML VIAL IV PUSH ×3 (08:44→17:16)
[2024-10-31] MEDS: METOPROLOL SUCCINATE EXT REL 25 MG TABCR PO (08:44)
[2024-10-31] MEDS: POLYSACCHARIDE IRON COMPLEX 150 MG CAPSULE PO (08:44)
[2024-10-31] MEDS: PANTOPRAZOLE 40 MG TABLET PO (08:44)
[2024-10-31] MEDS: INSULIN ASPART (*BKC) 100 UNITS/ML 8 UNITS SUB-Q ×3 (08:44→17:12)
[2024-10-31] MEDS: CELECOXIB 200 MG CAPSULE PO ×2 (08:44→17:12)
[2024-10-31] MEDS: INSULIN GLARGINE (*BKC) 100 UNITS/ML 46 UNITS SUB-Q (08:45)
[2024-10-31 09:44] LABS: Folic Acid 7.4 ng/mL (2.76->20)
--- NOTE | 2024-10-31 09:55 | PM.PNPUL ---
Progress Note: A&P Assessment and Plan (1) Pleural effusion: Code(s): J90 - Pleural effusion, not elsewhere classified Status: Acute Assessment and Plan: This 48-year-old female, with a history of severe obesity and multiple comorbidities including diabetes mellitus and coronary artery disease, presented with shortness of breath and lower extremity edema. Diagnostic studies revealed bilateral pleural effusion with associated atelectasis, particularly on the left side, with no evidence of a lower respiratory tract infection. The patient received antibiotics for possible pneumonia, although the left lower lobe infiltrate is likely due to atelectasis from the left-sided pleural effusion. Approximately 7 weeks ago, she had no pleural effusions when evaluated in the emergency room for chest pain related to an acute rib fracture. On admission, there was no evidence of hypercapnia, although her clinical history suggests possible sleep-disordered breathing. Regarding pulmonary embolism, the patient was diagnosed with a thromboembolic event 20 years ago and has been on anticoagulation therapy since. She has a right lower lobe lung nodule measuring 6 mm, which will require further monitoring as an outpatient. Her respiratory status has been stable over the last 24 hours, with no wheezing and only decreased breath sounds at the bases posteriorly. The lower extremity edema has significantly reduced. She continues to have a urinary catheter since her previous hospitalization at [facility]. An ApneaLink study last night showed no evidence of oxyhemoglobin desaturation on just 2 liters/minute of oxygen. Plan: The patient will need to continue with supplemental oxygen at 2 liters/minute and nebulized short-acting bronchodilators as needed. From a respiratory standpoint, no further inpatient treatment is required. Upon discharge, she will continue the supplemental oxygen at 2 liters/minute and nebulized albuterol as needed. She should continue with the direct anticoagulant due to her remote history of pulmonary embolism. Regarding the right lung nodule, the patient will need further evaluation in the outpatient pulmonary clinic. She will also require a sleep apnea study to rule out sleep-disordered breathing and pulmonary function testing to exclude underlying obstructive airway disease. I have provided the patient with the pulmonary clinic's contact information to schedule an appointment in approximately 4-5 weeks, and I will notify our scheduling team about the appointment. I will sign off at this point; please call with any questions. 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 She remains on supplemental oxygen 2 liters/minute. She underwent ApneaLink study last night on just supplemental oxygen 2 liters/minute. Regarding previous history of pulmonary embolism the patient stated that she had a blood clot approximately 20 years ago and ever since has been on anticoagulation. Current anticoagulation is Xarelto. Review of Systems Review of Systems: All systems reviewed & are unremarkable except as noted in HPI and below (HPI and below) Exam Narrative: GENERAL APPEARANCE: Well developed, well nourished, alert and cooperative, morbidly obese and appears to be in no acute distress while on supplemental oxygen via nasal cannula SKIN: Inspection of the skin reveals no rashes, ulcerations or petechiae. HEENT: Sclerae anicteric and conjunctivae pink and moist. Extraocular movements were intact and pupils were equal, round. NECK: Supple. There was no thyroid enlargement, and no tenderness, or masses were felt. CHEST: Normal AP diameter and normal contour without any kyphoscoliosis. LUNGS: Decreased breath sounds at left base posteriorly otherwise clear lungs CARDIAC: There was a regular rate and rhythm without any murmurs ABDOMEN: Soft and nontender with normal bowel sounds. There was no organomegaly. LYMPH NODES: No lymphadenopathy was appreciated in the neck,. EXTREMITIES: No cyanosis, clubbing. Trace pedal edema NEUROLOGIC: Alert and oriented x 3. Normal affect. Objective Data Vital Signs Vital Signs: Vital Signs - 24 hr 10/30/24 10:00 10/30/24 11:57 10/30/24 12:00 Temperature 37.1 C Pulse Rate 81 94 94 Respiratory Rate 18 Blood Pressure 102/64 Pulse Oximetry 100 Oxygen Delivery Oxygen Flow Rate Fraction of Inspired Oxygen 10/30/24 14:00 10/30/24 15:40 10/30/24 16:00 Temperature 37.2 C Pulse Rate 90 160 H 89 Respiratory Rate 14 Blood Pressure 108/47 L Pulse Oximetry 100 Oxygen Delivery Oxygen Flow Rate Fraction of Inspired Oxygen 10/30/24 16:00 10/30/24 18:00 10/30/24 20:00 Temperature Pulse Rate 100 91 Respiratory Rate Blood Pressure Pulse Oximetry 100 Oxygen Delivery Nasal Cannula Oxygen Flow Rate 2 Fraction of Inspired Oxygen 10/30/24 20:00 10/30/24 20:06 10/30/24 22:00 Temperature 36.9 C Pulse Rate 89 89 91 Respiratory Rate 16 Blood Pressure 109/44 L Pulse Oximetry 100 Oxygen Delivery Oxygen Flow Rate Fraction of Inspired Oxygen 10/30/24 23:11 10/30/24 23:25 10/31/24 00:00 Temperature 36.8 C Pulse Rate 91 93 Respiratory Rate 16 Blood Pressure 116/49 L Pulse Oximetry 94 92 94 Oxygen Delivery Nasal Cannula Nasal Cannula Oxygen Flow Rate 2 2 Fraction of Inspired Oxygen 28 10/31/24 00:00 10/31/24 02:00 10/31/24 03:25 Temperature 36.9 C Pulse Rate 88 78 81 Respiratory Rate 18 Blood Pressure 120/56 L Pulse Oximetry 98 Oxygen Delivery Oxygen Flow Rate Fraction of Inspired Oxygen 10/31/24 04:00 10/31/24 04:00 10/31/24 06:00 Temperature Pulse Rate 80 83 Respiratory Rate Blood Pressure Pulse Oximetry 98 Oxygen Delivery Nasal Cannula Oxygen Flow Rate 2 Fraction of Inspired Oxygen 10/31/24 08:44 10/31/24 08:52 Temperature Pulse Rate 94 Respiratory Rate Blood Pressure Pulse Oximetry 96 Oxygen Delivery Room Air Oxygen Flow Rate Fraction of Inspired Oxygen Intake/Output Intake/Output: Intake & Output 10/28/24 10/29/24 10/30/24 10/31/24 23:59 23:59 23:59 23:59 Intake Total 1540 3399.5 1000 Output Total 1600 2750 650 Balance -60 649.5 350 Meds/Results Medications: Active Medications Generic Name Dose Route Start Last Admin Trade Name Freq PRN Reason Stop Dose Admin Hydrocodone Bitart/Acetaminophen 1 tab 10/30/24 05:59 10/30/24 06:18 Hydrocodone/Acetaminophen (*Crx) 10-325 Mg Tablet PO 1 tab BID PRN Administration pain Aspirin 81 mg 10/30/24 09:00 10/31/24 08:44 Aspirin 81 Mg Enteric Tablet PO 81 mg QAM SIRISHA Administration Atorvastatin Calcium 80 mg 10/29/24 11:15 10/31/24 08:43 Atorvastatin 40 Mg Tablet PO 80 mg DAILY SIRISHA Administration Benzonatate 200 mg 10/29/24 17:00 10/31/24 08:43 Benzonatate 100 Mg Capsule PO 200 mg TID SIRISHA Administration Celecoxib 200 mg 10/29/24 17:00 10/31/24 08:44 Celecoxib 200 Mg Capsule PO 200 mg BIDWM SIRISHA Administration Cyclobenzaprine HCl 10 mg 10/30/24 09:00 10/31/24 08:43 Cyclobenzaprine Hcl 10 Mg Tablet PO 10 mg TID SIRISHA Administration Docusate Sodium 100 mg 10/29/24 11:10 Docusate Sodium 100 Mg Capsule PO BID PRN constipation Ezetimibe 10 mg 10/29/24 11:20 10/31/24 08:43 Ezetimibe 10 Mg Tablet PO 10 mg DAILY SIRISHA Administration Furosemide 40 mg 10/29/24 17:10 10/31/24 08:44 Furosemide Inj 40 Mg/4 Ml Vial IV PUSH 40 mg BID SIRISHA Administration Gabapentin 400 mg 10/29/24 14:00 10/31/24 06:29 Gabapentin 400 Mg Capsule BY MOUTH 400 mg 0700,1400 SIRISHA Administration Gabapentin 1,200 mg 10/29/24 21:00 10/30/24 21:44 Gabapentin 400 Mg Capsule BY MOUTH 1,200 mg QHS SIRISHA Administration Levofloxacin/Dextrose 750 mg in 150 mls @ 100 mls/hr 10/29/24 17:00 10/30/24 16:55 Levaquin 750 Mg/D5w 150 Ml IVPB 100 mls/hr Q24H SIRISHA Administration Insulin Aspart 8 units 10/29/24 12:00 10/31/24 08:44 Insulin Aspart (*Bkc) 100 Units/Ml SUB-Q 8 units TIDWM SIRISHA Administration Insulin Glargine 46 units 10/30/24 09:00 10/31/24 08:45 Insulin Glargine (*Bkc) 100 Units/Ml SUB-Q 46 units DAILY SIRISHA Administration Metoprolol Succinate 25 mg 10/29/24 11:25 10/31/24 08:44 Metoprolol Succinate Ext Rel 25 Mg Tabcr PO 25 mg DAILY SIRISHA Administration Ondansetron HCl 4 mg 10/30/24 12:57 Ondansetron Inj 4 Mg/2 Ml Vial IV PUSH Q6H PRN Nausea And Vomiting Pantoprazole Sodium 40 mg 10/30/24 09:00 10/31/24 08:44 Pantoprazole 40 Mg Tablet PO 40 mg QAM SIRISHA Administration Perflutren Lipid Microsphere 0 ml 10/29/24 11:02 Perflutren Lipid Microspheres 1.5 Ml Vial Diluted To 10 Ml Total Volume IV PUSH 11/01/24 11:04 ONCE PRN adequate visualization Protocol Polysaccharide Iron Complex 150 mg 10/31/24 08:00 10/31/24 08:44 Polysaccharide Iron Complex 150 Mg Capsule PO 150 mg DAILY@0800 SIRISHA Administration Rivaroxaban 10 mg 10/30/24 18:00 10/30/24 17:40 Rivaroxaban 10 Mg Tablet PO 10 mg EVENING SIRISHA Administration Radiology Results: ITS Impressions Chest X-Ray 10/29/24 11:27 Impression: 1: Cardiomegaly with mild interstitial edema. Labs Labs: Laboratory Results - last 24 hr 10/30/24 10/30/24 10/30/24 08:05 11:45 16:38 WBC RBC Hgb Hct MCV MCH MCHC RDW Plt Count MPV Immature Gran % (Auto) Neut % (Auto) Lymph % (Auto) [place] % (Auto) Eos % (Auto) Baso % (Auto) Lymph # (Auto) [place] # (Auto) Eos # (Auto) Baso # (Auto) Abs Immat Gran (auto) Absolute Neuts (auto) Absolute Nucleated RBC Band Neutrophils % Nucleated RBC % Platelet Estimate Hypochromasia Anisocytosis [place] Cells Schistocytes Absolute Retic Percent Retic Immature Retic Fraction Retic Hgb Content Sodium Potassium Chloride Carbon Dioxide Anion Gap BUN Creatinine Estim Creat Clear Calc Estimated GFR Glucose POC Capillary Glucose 352 H 390 H 286 H Calcium Iron TIBC % Saturation Transferrin Ferritin Total Bilirubin Direct Bilirubin AST ALT Alkaline Phosphatase Lactate Dehydrogenase Troponin I Total Protein Albumin Vitamin B12 Folate MARY ANN, Poly Interpret 10/30/24 10/31/24 10/31/24 20:09 06:21 06:24 WBC 6.4 RBC 2.54 L Hgb 7.4 L Hct 24.8 L MCV 97.6 MCH 29.1 MCHC 29.8 L RDW 17.2 H Plt Count 161 MPV 11.4 H Immature Gran % (Auto) 0.6 H Neut % (Auto) 68.3 Lymph % (Auto) 19.8 [place] % (Auto) 9.0 H Eos % (Auto) 2.0 Baso % (Auto) 0.3 Lymph # (Auto) 1.26 [place] # (Auto) 0.6 Eos # (Auto) 0.1 Baso # (Auto) 0.0 Abs Immat Gran (auto) 0.04 H Absolute Neuts (auto) 4.3 Absolute Nucleated RBC 0.000 Band Neutrophils % Not Reportable Nucleated RBC % 0.0 Platelet Estimate Adequate Hypochromasia 1+ Anisocytosis 1+ [place] Cells 1+ Schistocytes None seen Absolute Retic 0.10 Percent Retic 3.90 Immature Retic Fraction 27.0 H Retic Hgb Content 24.0 L Sodium 138 Potassium 4.3 Chloride 104 Carbon Dioxide 26 Anion Gap 8 BUN 62 H Creatinine 1.63 H Estim Creat Clear Calc 46 Estimated GFR 34 L Glucose 316 H POC Capillary Glucose 244 H Calcium 8.5 Iron 54 TIBC 221 L % Saturation 24 Transferrin 157 L Ferritin 256.00 H Total Bilirubin 0.2 Direct Bilirubin 0.0 AST 16 ALT 17 Alkaline Phosphatase 175 H Lactate Dehydrogenase 195 Troponin I 0.328 H* Total Protein 7.0 Albumin 2.8 L Vitamin B12 374.0 Folate 7.4 MARY ANN, Poly Interpret 2+ 10/31/24 07:50 WBC RBC Hgb Hct MCV MCH MCHC RDW Plt Count MPV Immature Gran % (Auto) Neut % (Auto) Lymph % (Auto) [place] % (Auto) Eos % (Auto) Baso % (Auto) Lymph # (Auto) [place] # (Auto) Eos # (Auto) Baso # (Auto) Abs Immat Gran (auto) Absolute Neuts (auto) Absolute Nucleated RBC Band Neutrophils % Nucleated RBC % Platelet Estimate Hypochromasia Anisocytosis [place] Cells Schistocytes Absolute Retic Percent Retic Immature Retic Fraction Retic Hgb Content Sodium Potassium Chloride Carbon Dioxide Anion Gap BUN Creatinine Estim Creat Clear Calc Estimated GFR Glucose POC Capillary Glucose 273 H Calcium Iron TIBC % Saturation Transferrin Ferritin Total Bilirubin Direct Bilirubin AST ALT Alkaline Phosphatase Lactate Dehydrogenase Troponin I Total Protein Albumin Vitamin B12 Folate MARY ANN, Poly Interpret
--- NOTE | 2024-10-31 12:57 | PM.PNCARD ---
Progress Note: A&P Assessment and Plan (1) CHF (congestive heart failure): Code(s): I50.9 - Heart failure, unspecified Status: Acute (2) CAD (coronary artery disease): Code(s): I25.10 - Atherosclerotic heart disease of [place] coronary artery without angina pectoris Status: Acute (3) Paroxysmal A-fib: Code(s): I48.0 - Paroxysmal atrial fibrillation Status: Acute Plan 48-year-old woman with multivessel CAD (not amenable for bypass or PCI), chronic systolic heart failure (LVEF 45%), paroxysmal atrial fibrillation (on Xarelto), CKD stage IIIA, and diabetes presented with shortness of breath cough. Acute on chronic systolic heart failure -fluid restriction to 1500 cc per day -Lasix 40 mg IV b.i.d. Multivessel CAD -continue metoprolol succinate 25 p.o. daily and aspirin p.o. daily Paroxysmal atrial fibrillation -Xarelto dosing should be 15 mg with dinner Hyperlipidemia -continue atorvastatin 80 every evening and ezetimibe 10 mg p.o. daily Subjective Date/time seen: 10/31/24 12:57 Interval history: No chest pain today. Shortness of breath improving. Still has lower extremity swellings. Continues to have paroxysmal nocturnal dyspnea and orthopnea. Review of Systems Cardiovascular: Cardiovascular: Reports as per HPI Respiratory: Respiratory: Reports as per HPI Exam Const: General: comfortable HENMT: Mouth: Yes moist mucous membranes Eyes: EOM: EOMs intact bilaterally Neck: Neck: no JVD Resp: Effort & Inspection: normal respiratory effort Auscultation: rales Cardio: Rate: regular rate Rhythm: regular rhythm GI: GI Palp: Yes Soft to palpation Neuro: Speech: normal speech Extrem: General: edema and pedal edema Objective Data Vital Signs Vital Signs: Vital Signs - 24 hr 10/30/24 14:00 10/30/24 15:40 10/30/24 16:00 Temperature 37.2 C Pulse Rate 90 160 H 89 Respiratory Rate 14 Blood Pressure 108/47 L Pulse Oximetry 100 Oxygen Delivery Oxygen Flow Rate Fraction of Inspired Oxygen 10/30/24 16:00 10/30/24 18:00 10/30/24 20:00 Temperature Pulse Rate 100 91 Respiratory Rate Blood Pressure Pulse Oximetry 100 Oxygen Delivery Nasal Cannula Oxygen Flow Rate 2 Fraction of Inspired Oxygen 10/30/24 20:00 10/30/24 20:06 10/30/24 22:00 Temperature 36.9 C Pulse Rate 89 89 91 Respiratory Rate 16 Blood Pressure 109/44 L Pulse Oximetry 100 Oxygen Delivery Oxygen Flow Rate Fraction of Inspired Oxygen 10/30/24 23:11 10/30/24 23:25 10/31/24 00:00 Temperature 36.8 C Pulse Rate 91 93 Respiratory Rate 16 Blood Pressure 116/49 L Pulse Oximetry 94 92 94 Oxygen Delivery Nasal Cannula Nasal Cannula Oxygen Flow Rate 2 2 Fraction of Inspired Oxygen 28 10/31/24 00:00 10/31/24 02:00 10/31/24 03:25 Temperature 36.9 C Pulse Rate 88 78 81 Respiratory Rate 18 Blood Pressure 120/56 L Pulse Oximetry 98 Oxygen Delivery Oxygen Flow Rate Fraction of Inspired Oxygen 10/31/24 04:00 10/31/24 04:00 10/31/24 06:00 Temperature Pulse Rate 80 83 Respiratory Rate Blood Pressure Pulse Oximetry 98 Oxygen Delivery Nasal Cannula Oxygen Flow Rate 2 Fraction of Inspired Oxygen 10/31/24 08:00 10/31/24 08:00 10/31/24 08:00 Temperature 36.4 C L Pulse Rate 89 94 87 Respiratory Rate 18 18 Blood Pressure 118/57 L Pulse Oximetry 100 96 Oxygen Delivery Room Air Oxygen Flow Rate Fraction of Inspired Oxygen 10/31/24 08:44 10/31/24 08:52 10/31/24 09:15 Temperature Pulse Rate 94 Respiratory Rate Blood Pressure Pulse Oximetry 96 Oxygen Delivery Room Air Nasal Cannula Oxygen Flow Rate 2 Fraction of Inspired Oxygen 10/31/24 10:00 10/31/24 10:27 10/31/24 12:00 Temperature 36.4 C Pulse Rate 94 88 Respiratory Rate 22 H Blood Pressure 123/59 L Pulse Oximetry 98 Oxygen Delivery Nasal Cannula Oxygen Flow Rate 2 Fraction of Inspired Oxygen Intake/Output Intake/Output: Intake & Output 10/28/24 10/29/24 10/30/24 10/31/24 23:59 23:59 23:59 23:59 Intake Total 1540 3399.5 1240 Output Total 1600 2750 650 Balance -60 649.5 590 Meds/Results Medications: Active Medications Generic Name Dose Route Start Last Admin Trade Name Freq PRN Reason Stop Dose Admin Hydrocodone Bitart/Acetaminophen 1 tab 10/30/24 05:59 10/30/24 06:18 Hydrocodone/Acetaminophen (*Crx) 10-325 Mg Tablet PO 1 tab BID PRN Administration pain Aspirin 81 mg 10/30/24 09:00 10/31/24 08:44 Aspirin 81 Mg Enteric Tablet PO 81 mg QAM SIRISHA Administration Atorvastatin Calcium 80 mg 10/29/24 11:15 10/31/24 08:43 Atorvastatin 40 Mg Tablet PO 80 mg DAILY SIRISHA Administration Benzonatate 200 mg 10/29/24 17:00 10/31/24 08:43 Benzonatate 100 Mg Capsule PO 200 mg TID SIRISHA Administration Celecoxib 200 mg 10/29/24 17:00 10/31/24 08:44 Celecoxib 200 Mg Capsule PO 200 mg BIDWM SIRISHA Administration Cyclobenzaprine HCl 10 mg 10/30/24 09:00 10/31/24 08:43 Cyclobenzaprine Hcl 10 Mg Tablet PO 10 mg TID SIRISHA Administration Docusate Sodium 100 mg 10/29/24 11:10 Docusate Sodium 100 Mg Capsule PO BID PRN constipation Ezetimibe 10 mg 10/29/24 11:20 10/31/24 08:43 Ezetimibe 10 Mg Tablet PO 10 mg DAILY SIRISHA Administration Furosemide 40 mg 10/29/24 17:10 10/31/24 08:44 Furosemide Inj 40 Mg/4 Ml Vial IV PUSH 40 mg BID SIRISHA Administration Gabapentin 400 mg 10/29/24 14:00 10/31/24 06:29 Gabapentin 400 Mg Capsule BY MOUTH 400 mg 0700,1400 SIRISHA Administration Gabapentin 1,200 mg 10/29/24 21:00 10/30/24 21:44 Gabapentin 400 Mg Capsule BY MOUTH 1,200 mg QHS SIRISHA Administration Levofloxacin/Dextrose 750 mg in 150 mls @ 100 mls/hr 10/29/24 17:00 10/30/24 16:55 Levaquin 750 Mg/D5w 150 Ml IVPB 100 mls/hr Q24H SIRISHA Administration Insulin Aspart 8 units 10/29/24 12:00 10/31/24 11:32 Insulin Aspart (*Bkc) 100 Units/Ml SUB-Q 8 units TIDWM SIRISHA Administration Insulin Glargine 46 units 10/30/24 09:00 10/31/24 08:45 Insulin Glargine (*Bkc) 100 Units/Ml SUB-Q 46 units DAILY SIRISHA Administration Metoprolol Succinate 25 mg 10/29/24 11:25 10/31/24 08:44 Metoprolol Succinate Ext Rel 25 Mg Tabcr PO 25 mg DAILY SIRISHA Administration Ondansetron HCl 4 mg 10/30/24 12:57 Ondansetron Inj 4 Mg/2 Ml Vial IV PUSH Q6H PRN Nausea And Vomiting Pantoprazole Sodium 40 mg 10/30/24 09:00 10/31/24 08:44 Pantoprazole 40 Mg Tablet PO 40 mg QAM SIRISHA Administration Perflutren Lipid Microsphere 0 ml 10/29/24 11:02 Perflutren Lipid Microspheres 1.5 Ml Vial Diluted To 10 Ml Total Volume IV PUSH 11/01/24 11:04 ONCE PRN adequate visualization Protocol Polysaccharide Iron Complex 150 mg 10/31/24 08:00 10/31/24 08:44 Polysaccharide Iron Complex 150 Mg Capsule PO 150 mg DAILY@0800 SIRISHA Administration Rivaroxaban 10 mg 10/30/24 18:00 10/30/24 17:40 Rivaroxaban 10 Mg Tablet PO 10 mg EVENING SIRISHA Administration Radiology Results: ITS Impressions Chest X-Ray 10/29/24 11:27 Impression: 1: Cardiomegaly with mild interstitial edema. Labs Labs: Laboratory Results - last 24 hr 10/30/24 10/30/24 10/30/24 11:45 16:38 20:09 WBC RBC Hgb Hct MCV MCH MCHC RDW Plt Count MPV Immature Gran % (Auto) Neut % (Auto) Lymph % (Auto) [place] % (Auto) Eos % (Auto) Baso % (Auto) Lymph # (Auto) [place] # (Auto) Eos # (Auto) Baso # (Auto) Abs Immat Gran (auto) Absolute Neuts (auto) Absolute Nucleated RBC Band Neutrophils % Nucleated RBC % Platelet Estimate Hypochromasia Anisocytosis Stanton Cells Schistocytes Absolute Retic Percent Retic Immature Retic Fraction Retic Hgb Content Sodium Potassium Chloride Carbon Dioxide Anion Gap BUN Creatinine Estim Creat Clear Calc Estimated GFR Glucose POC Capillary Glucose 390 H 286 H 244 H Calcium Iron TIBC % Saturation Transferrin Ferritin Total Bilirubin Direct Bilirubin AST ALT Alkaline Phosphatase Lactate Dehydrogenase Troponin I Total Protein Albumin Vitamin B12 Folate MARY ANN, IgG Interpret MARY ANN, Poly Interpret MARY ANN, Complement Interp 10/31/24 10/31/24 10/31/24 06:21 06:24 07:50 WBC 6.4 RBC 2.54 L Hgb 7.4 L Hct 24.8 L MCV 97.6 MCH 29.1 MCHC 29.8 L RDW 17.2 H Plt Count 161 MPV 11.4 H Immature Gran % (Auto) 0.6 H Neut % (Auto) 68.3 Lymph % (Auto) 19.8 [place] % (Auto) 9.0 H Eos % (Auto) 2.0 Baso % (Auto) 0.3 Lymph # (Auto) 1.26 [place] # (Auto) 0.6 Eos # (Auto) 0.1 Baso # (Auto) 0.0 Abs Immat Gran (auto) 0.04 H Absolute Neuts (auto) 4.3 Absolute Nucleated RBC 0.000 Band Neutrophils % Not Reportable Nucleated RBC % 0.0 Platelet Estimate Adequate Hypochromasia 1+ Anisocytosis 1+ Stanton Cells 1+ Schistocytes None seen Absolute Retic 0.10 Percent Retic 3.90 Immature Retic Fraction 27.0 H Retic Hgb Content 24.0 L Sodium 138 Potassium 4.3 Chloride 104 Carbon Dioxide 26 Anion Gap 8 BUN 62 H Creatinine 1.63 H Estim Creat Clear Calc 46 Estimated GFR 34 L Glucose 316 H POC Capillary Glucose 273 H Calcium 8.5 Iron 54 TIBC 221 L % Saturation 24 Transferrin 157 L Ferritin 256.00 H Total Bilirubin 0.2 Direct Bilirubin 0.0 AST 16 ALT 17 Alkaline Phosphatase 175 H Lactate Dehydrogenase 195 Troponin I 0.328 H* Total Protein 7.0 Albumin 2.8 L Vitamin B12 374.0 Folate 7.4 MARY ANN, IgG Interpret Positive MARY ANN, Poly Interpret 2+ MARY ANN, Complement Interp Negative
[2024-10-31 13:06] LABS: Hematocrit 28.8 % (37.0-47.0); Hemoglobin 8.6 g/dL (12.0-15.0)
--- NOTE | 2024-10-31 13:08 | PCCDE ---
10/31/24: 13:00 Ht: 5?5? wt: 107.3 kg BMI: 39.4 eGFR: 34 this am. POC: 10/29: [phone] 10/30: [phone] 10/31: 273 Fasting glu x 3 days: / Lantus 46 U /d Novolog 8 U TIDwm. Correction insulin not ordered. Pt presents with persistent fasting hyperglycemia, as well as daytime. Dr. AVENDANO reached out ? Discussed: Will add: Lantus HS 5 U Moderate Correction TIDwm and HS. Monitor glucose/renal function for insulin titration needs. MERVIN
--- NOTE | 2024-10-31 13:15 | WPDCDIQUERY2 ---
CDI Query Clarification Request ER documented Sepsis Please clarify if sepsis has been ruled in or ruled out. patient is a 48-year-old female with multiple medical problems here with cough and congestion with shortness of breath over the past month. We will do a extensive pulmonary workup. Patient is very sickly for her young age. She uses oxygen at this point chronically and has a Garcia catheter in place. She will need transfer back to [facility]. In lieu of significant anemia and shortness of breath, we will not use blood thinning measures for the non-STEMI at this exact time. We will treat the pneumonia sepsis at this time with Levaquin due to the allergies. Blood cultures pending. Clinical Impression: Acute non-ST elevation myocardial infarction (NSTEMI) Anemia Qualifiers: Anemia type: other cause Other causes of anemia: other cause, not classified Qualified Code(s): D64.89 - Other specified anemias Acute exacerbation of CHF (congestive heart failure) Qualifiers: Heart failure type: unspecified Qualified Code(s): I50.9 - Heart failure, unspecified Pneumonia Qualifiers: Pneumonia type: due to unspecified organism Laterality: unspecified laterality Lung location: unspecified part of lung Qualified Code(s): J18.9 - Pneumonia, unspecified organism Sepsis Qualifiers: Sepsis type: sepsis due to unspecified organism Sepsis acute organ dysfunction status: with acute organ dysfunction Severe sepsis acute organ dysfunction type: acute respiratory failure Acute respiratory failure type: with hypoxia Severe sepsis shock status: without septic shock Qualified Code(s): A41.9 - Sepsis, unspecified organism
[2024-10-31 14:28] LABS: Glucose Point of Care 226 mg/dl (65-105)
[2024-10-31] MEDS: PERFLUTREN LIPID MICROSPHERES 1.5 ML VIAL DILUTED TO 10 ML TOTAL VOLUME IV PUSH (15:33)
--- NOTE | 2024-10-31 15:59 | P.CONGI_ITS ---
Assessment and Plan Assessment and plan (1) Iron deficiency anemia: Code(s): D50.9 - Iron deficiency anemia, unspecified Status: Acute Assessment and Plan: The patient's complex medical history includes severe pre-existing heart disease with congestive heart failure, possible superimposed pneumonia, and stage IA acute kidney injury. Although iron deficiency anemia has been identified, immediate investigation is not possible at this time due to her current clinical instability and the associated risk of general anesthesia. We recommend deferring endoscopic evaluation until her cardiopulmonary status improves, at which time elective colonoscopy and upper endoscopy can be performed to determine the etiology of the anemia. GI Consult Note Consult date/time: 10/31/24 15:59 HPI: Brooke Garcia, a 48-year-old female with a complex medical history including coronary artery disease, atrial fibrillation, COPD, diabetes mellitus (post-left toe amputation), and recent hospitalization at [facility], was admitted on 10/29 for severe dyspnea. Her cardiac status is complicated by a severely reduced ejection fraction. Current chest CT demonstrated bilateral pleural effusions and pulmonary infiltrates. She reports progressive dyspnea and cough for the past month. Gastroenterology consultation was requested to investigate the etiology of iron deficiency anemia (iron saturation 11% on 10/29), given the absence of overt gastrointestinal bleeding (melena, hematochezia, hematemesis). Her last colonoscopy was performed more than 10 years ago. Review of Systems 2 Review of Systems: All systems reviewed & are unremarkable except as noted in HPI and below PMFSH Past Medical History Medical History Dyslipidemia Diabetes mellitus Social History Social History Smoking status: Current every day smoker Alcohol intake: never Substance use: never Do You Feel Safe in your Home?: Yes Lack of Transportation: No Lack of Food: Never True Current Housing: I Have Housing Concerned About Future Housing: No Difficulty Paying Gas/Electric Bills: No Difficulty Paying for Meds: No Currently Unemployed: No Education: High School Diploma/GED Difficulty w/ Childcare or Family Care: No Spiritual care concerns: No Meds Home Medications and Allergies Home Medications ?Medication ?Instructions ?Recorded ?Confirmed ?Type atorvastatin 80 mg tablet 80 mg PO DAILY 07/26/23 10/29/24 History bumetanide 1 mg tablet See Rx Instructions .Route .COMPLEX 07/26/23 10/29/24 History celecoxib 200 mg capsule 200 mg PO BID 07/26/23 10/29/24 History insulin detemir U-100 100 unit/mL 46 unit subcut DAILY 07/26/23 10/29/24 History subcutaneous solution (Levemir U-100 Insulin) insulin lispro 100 unit/mL See Rx Instructions .Route .COMPLEX 07/26/23 10/29/24 History subcutaneous solution (Humalog U-100 Insulin) metoprolol succinate 25 mg 25 mg PO DAILY 07/26/23 10/29/24 History tablet,extended release 24 hr ezetimibe 10 mg tablet 10 mg PO DAILY 10/29/23 10/29/24 History gabapentin 400 mg capsule See Rx Instructions .Route .COMPLEX 10/29/23 10/29/24 History docusate sodium 100 mg capsule 100 mg PO BID PRN constipation 08/20/24 10/29/24 Rx (Colace) #14 caps albuterol sulfate 5 mg/mL(0.5 %) 2.5 mg inhalation Q6H PRN 10/30/24 10/30/24 History solution for nebulization shortness of breath or wheezing cyclobenzaprine 10 mg tablet 10 mg PO TID 10/30/24 10/30/24 History famotidine 20 mg tablet 20 mg PO Q12H 10/30/24 10/30/24 History hydrocodone 10 mg-acetaminophen 1 tablet PO BID PRN pain 10/30/24 10/30/24 History 325 mg tablet plecanatide 3 mg tablet (Trulance) 3 mg PO DAILY 10/30/24 10/30/24 History potassium chloride 20 mEq 20 meq PO DAILY 10/30/24 10/30/24 History tablet,extended release(part/cryst) rivaroxaban 10 mg tablet (Xarelto) 10 mg PO DAILY 10/30/24 10/30/24 History tirzepatide 2.5 mg/0.5 mL 2.5 mg subcut WEEKLY 10/30/24 10/30/24 History subcutaneous pen injector (Mounjaro) Allergies Allergy/AdvReac Type Severity Reaction Status Date / Time cephalexin (From Keflex) Allergy Unknown Unknown Verified 10/28/24 11:25 codeine Allergy Unknown Verified 10/28/24 11:25 erythromycin base Allergy Unknown Verified 10/28/24 11:25 Vital Signs Vital Signs - 24 hr 10/30/24 16:00 10/30/24 16:00 10/30/24 18:00 Temperature 98.9 F Pulse Rate 89 100 91 Respiratory Rate 14 Blood Pressure 108/47 L Pulse Oximetry 100 Oxygen Delivery Oxygen Flow Rate Fraction of Inspired Oxygen 10/30/24 20:00 10/30/24 20:00 10/30/24 20:06 Temperature 98.5 F Pulse Rate 89 89 Respiratory Rate 16 Blood Pressure 109/44 L Pulse Oximetry 100 100 Oxygen Delivery Nasal Cannula Oxygen Flow Rate 2 Fraction of Inspired Oxygen 10/30/24 22:00 10/30/24 23:11 10/30/24 23:25 Temperature 98.2 F Pulse Rate 91 91 93 Respiratory Rate 16 Blood Pressure 116/49 L Pulse Oximetry 94 92 Oxygen Delivery Nasal Cannula Oxygen Flow Rate 2 Fraction of Inspired Oxygen 28 10/31/24 00:00 10/31/24 00:00 10/31/24 02:00 Temperature Pulse Rate 88 78 Respiratory Rate Blood Pressure Pulse Oximetry 94 Oxygen Delivery Nasal Cannula Oxygen Flow Rate 2 Fraction of Inspired Oxygen 10/31/24 03:25 10/31/24 04:00 10/31/24 04:00 Temperature 98.5 F Pulse Rate 81 80 Respiratory Rate 18 Blood Pressure 120/56 L Pulse Oximetry 98 98 Oxygen Delivery Nasal Cannula Oxygen Flow Rate 2 Fraction of Inspired Oxygen 10/31/24 06:00 10/31/24 08:00 10/31/24 08:00 Temperature 97.5 F L Pulse Rate 83 89 94 Respiratory Rate 18 18 Blood Pressure 118/57 L Pulse Oximetry 100 96 Oxygen Delivery Room Air Oxygen Flow Rate Fraction of Inspired Oxygen 10/31/24 08:00 10/31/24 08:44 10/31/24 08:52 Temperature Pulse Rate 87 94 Respiratory Rate Blood Pressure Pulse Oximetry 96 Oxygen Delivery Room Air Oxygen Flow Rate Fraction of Inspired Oxygen 10/31/24 09:15 10/31/24 10:00 10/31/24 10:27 Temperature Pulse Rate 94 Respiratory Rate Blood Pressure Pulse Oximetry Oxygen Delivery Nasal Cannula Nasal Cannula Oxygen Flow Rate 2 2 Fraction of Inspired Oxygen 10/31/24 12:00 10/31/24 12:00 Temperature 97.6 F Pulse Rate 88 90 Respiratory Rate 22 H Blood Pressure 123/59 L Pulse Oximetry 98 Oxygen Delivery Oxygen Flow Rate Fraction of Inspired Oxygen Exam 2 Narrative: Clearly dyspneic, with O2 nasal cannula, frequently coughing. Lungs: Bilateral bibasal crackles. Abdomen: Distended, soft, nontender, bowel sounds present. Extremities: Absent left toe from previous amputation. 4+ pitting edema pedal and pretibial. Results Labs 10/31/24 13:00 10/31/24 06:24 Labs: Short CBC 10/31/24 10/31/24 Range/Units 06:24 13:00 WBC 6.4 (4.5-10.0) K/mm3 Hgb 7.4 L 8.6 L (12.0-15.0) g/dL Hct 24.8 L 28.8 L (37.0-47.0) % Plt Count 161 (150-375) k/mm3 BMP 10/31/24 06:24 Sodium 138 Potassium 4.3 Chloride 104 Carbon Dioxide 26 BUN 62 H Creatinine 1.63 H Glucose 316 H Calcium 8.5 Cardiac Enzymes 10/31/24 Range/Units 06:24 Troponin I 0.328 H* (0.000-0.034) ng/mL Liver Function 10/31/24 10/31/24 Range/Units 06:21 06:24 Total Bilirubin 0.2 (0.2-1.3) mg/dL Direct Bilirubin 0.0 (0-0.3) mg/dL AST 16 (14-36) U/L ALT 17 (6-35) U/L Alkaline Phosphatase 175 H (38-126) U/L Albumin 2.8 L (3.5-5.1) g/dL
[2024-10-31 16:13] LABS: Glucose Point of Care 100 mg/dl (65-105)
--- NOTE | 2024-10-31 16:20 | IVDEFINITY ---
Prior to administration of IV Definity the patient was educated on the risks and benefits of the imaging enhancing agent including potential adverse side effects. The patient verbalized understanding. Allergies were verified. No exclusion criteria were identified and at least one of the following inclusion criteria were met: 1) physician request, 2) patient technically difficult to image (per the [place] [employer] guidelines of two or more segments not discernable within the apical view), or 3) questionable left ventricular function. ?
--- NOTE | 2024-10-31 16:45 | PM.IMPN ---
Progress Note: A&P Assessment and Plan (1) Acute exacerbation of CHF (congestive heart failure): Qualifiers: Heart failure type: unspecified Qualified Code(s): I50.9 - Heart failure, unspecified Code(s): I50.9 - Heart failure, unspecified Status: Inactive Assessment and Plan: Will continue with IV Lasix. Monitor I's and O's. Cardiology consult noted (2) Pneumonia: Qualifiers: Laterality: unspecified laterality Lung location: unspecified part of lung Pneumonia type: due to unspecified organism Qualified Code(s): J18.9 - Pneumonia, unspecified organism Code(s): J18.9 - Pneumonia, unspecified organism Status: Inactive Assessment and Plan: Continue with IV Levaquin. Repeat chest x-ray in the morning (3) Acute non-ST elevation myocardial infarction (NSTEMI): Code(s): I21.4 - Non-ST elevation (NSTEMI) myocardial infarction Status: Inactive Assessment and Plan: Cardiology consult noted. Current treatment. trend troponin Plan Acute on chronic hypoxemic respiratory From CHF and pneumonia CT showed bilateral pleural effusion with atelectasis and focal pneumonia Currently on 4 L oxygen, baseline is 2 L oxygen. Continue Lasix 40 mg IV b.i.d. and levofloxacin Monitor. 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 CHF exacerbation No echo on file does unable to specify Patient presented with shortness of breath, leg edema orthopnea. He has a CT chest showed a urine effusion bilaterally atelectasis. Continue lasix 40 IV b.i.d. Cardiology consulted. Pneumonia CT chest showed a right bundle Blood and sputum culture ordered MRSA pending Started on Levaquin Follow-up closely. Anemia Hemoglobin is 8.6 GI consulted outpatient follow-up for endoscopy and colonoscopy Iron panel on FOBT pending. Monitor H and H Type 2 diabetes Blood sugar not on target Will add Lantus 10 units in the night and correctional insulin Continue 46U QD Continue home Lantus Humalog insulin. Sliding scale insulin with Accu-Cheks. Chronic Garcia for urinary incontinence Discussed voiding trial but patient refuses. Continue Garcia per patient's preference History of stroke Continue aspirin and Lipitor No residual weakness Afib on Metoprolol and DC heparin infusion Xarelto 15 mg PO QD cardiology consulted DVT prophylaxis on heparin infusion. Do not resuscitate Health power of district attorney, Arnoldo Garcia Subjective Date/time seen: 10/31/24 16:45 Interval history: Patient has multiple comorbid conditions. And is not a good historian. Patient has a chronic Garcia. Patient has a past medical history of word type 2 diabetes mellitus, CVA, CHF. Patient was recently in the hospital's [facility] and [facility] but could not able to explain the reason for the hospitalization. Patient has iron deficiency anemia GI was consulted. Patient had hysterectomy year 1999. Patient creatinine has been increasing. Patient blood sugar has not been on target. Will add Lantus at 10 units in the night time and correctional insulin as well. Review of Systems Review of Systems: All other systems reviewed and negative except as noted in history above. Exam Narrative: General: alert and comfortable Eyes: EOMI, PERRLA ENNT External ears normal, Neck is supple, no masses, Respiratory systems: Air entry decreased, few rales at bases Cardiovascular S1, S2, normal rhythm, no murmur, rub, or gallop; no thrill or palpable murmurs on palpation. Gastrointestinal: soft, non-tender, and non-distended abdomen with no masses; BS present Skin: no rash, lesions, ulcerations, subcutaneous nodules or induration Musculoskeletal: Bilateral lower extremity edema 3+ Neurologic: Alert and oriented x3, non focal Mental Status Exam: normal affect Objective Data Vital Signs Vital Signs: Vital Signs - 24 hr 10/30/24 18:00 10/30/24 20:00 10/30/24 20:00 Temperature Pulse Rate 91 89 Respiratory Rate Blood Pressure Pulse Oximetry 100 Oxygen Delivery Nasal Cannula Oxygen Flow Rate 2 Fraction of Inspired Oxygen 10/30/24 20:06 10/30/24 22:00 10/30/24 23:11 Temperature 98.5 F 98.2 F Pulse Rate 89 91 91 Respiratory Rate 16 16 Blood Pressure 109/44 L 116/49 L Pulse Oximetry 100 94 Oxygen Delivery Oxygen Flow Rate Fraction of Inspired Oxygen 10/30/24 23:25 10/31/24 00:00 10/31/24 00:00 Temperature Pulse Rate 93 88 Respiratory Rate Blood Pressure Pulse Oximetry 92 94 Oxygen Delivery Nasal Cannula Nasal Cannula Oxygen Flow Rate 2 2 Fraction of Inspired Oxygen 28 10/31/24 02:00 10/31/24 03:25 10/31/24 04:00 Temperature 98.5 F Pulse Rate 78 81 80 Respiratory Rate 18 Blood Pressure 120/56 L Pulse Oximetry 98 Oxygen Delivery Oxygen Flow Rate Fraction of Inspired Oxygen 10/31/24 04:00 10/31/24 06:00 10/31/24 08:00 Temperature 97.5 F L Pulse Rate 83 89 Respiratory Rate 18 Blood Pressure 118/57 L Pulse Oximetry 98 100 Oxygen Delivery Nasal Cannula Oxygen Flow Rate 2 Fraction of Inspired Oxygen 10/31/24 08:00 10/31/24 08:00 10/31/24 08:44 Temperature Pulse Rate 94 87 94 Respiratory Rate 18 Blood Pressure Pulse Oximetry 96 Oxygen Delivery Room Air Oxygen Flow Rate Fraction of Inspired Oxygen 10/31/24 08:52 10/31/24 09:15 10/31/24 10:00 Temperature Pulse Rate 94 Respiratory Rate Blood Pressure Pulse Oximetry 96 Oxygen Delivery Room Air Nasal Cannula Oxygen Flow Rate 2 Fraction of Inspired Oxygen 10/31/24 10:27 10/31/24 12:00 10/31/24 12:00 Temperature 97.6 F Pulse Rate 88 90 Respiratory Rate 22 H Blood Pressure 123/59 L Pulse Oximetry 98 Oxygen Delivery Nasal Cannula Oxygen Flow Rate 2 Fraction of Inspired Oxygen Intake/Output Intake/Output: Intake & Output 10/28/24 10/29/24 10/30/24 10/31/24 23:59 23:59 23:59 23:59 Intake Total 1540 3399.5 1240 Output Total 1600 2750 650 Balance -60 649.5 590 Meds/Results Medications: Active Medications Generic Name Dose Route Start Last Admin Trade Name Freq PRN Reason Stop Dose Admin Hydrocodone Bitart/Acetaminophen 1 tab 10/30/24 05:59 10/30/24 06:18 Hydrocodone/Acetaminophen (*Crx) 10-325 Mg Tablet PO 1 tab BID PRN Administration pain Aspirin 81 mg 10/30/24 09:00 10/31/24 08:44 Aspirin 81 Mg Enteric Tablet PO 81 mg QAM SIRISHA Administration Atorvastatin Calcium 80 mg 10/29/24 11:15 10/31/24 08:43 Atorvastatin 40 Mg Tablet PO 80 mg DAILY SIRISHA Administration Benzonatate 200 mg 10/29/24 17:00 10/31/24 13:50 Benzonatate 100 Mg Capsule PO 200 mg TID SIRISHA Administration Celecoxib 200 mg 10/29/24 17:00 10/31/24 08:44 Celecoxib 200 Mg Capsule PO 200 mg BIDWM SIRISHA Administration Cyclobenzaprine HCl 10 mg 10/30/24 09:00 10/31/24 13:50 Cyclobenzaprine Hcl 10 Mg Tablet PO 10 mg TID SIRISHA Administration Docusate Sodium 100 mg 10/29/24 11:10 Docusate Sodium 100 Mg Capsule PO BID PRN constipation Ezetimibe 10 mg 10/29/24 11:20 10/31/24 08:43 Ezetimibe 10 Mg Tablet PO 10 mg DAILY SIRISHA Administration Furosemide 40 mg 10/29/24 17:10 10/31/24 08:44 Furosemide Inj 40 Mg/4 Ml Vial IV PUSH 40 mg BID SIRISHA Administration Gabapentin 400 mg 10/29/24 14:00 10/31/24 13:52 Gabapentin 400 Mg Capsule BY MOUTH 400 mg 0700,1400 SIRISHA Administration Gabapentin 1,200 mg 10/29/24 21:00 10/30/24 21:44 Gabapentin 400 Mg Capsule BY MOUTH 1,200 mg QHS SIRISHA Administration Levofloxacin/Dextrose 750 mg in 150 mls @ 100 mls/hr 10/29/24 17:00 10/30/24 16:55 Levaquin 750 Mg/D5w 150 Ml IVPB 100 mls/hr Q24H SIRISHA Administration Insulin Aspart 8 units 10/29/24 12:00 10/31/24 11:32 Insulin Aspart (*Bkc) 100 Units/Ml SUB-Q 8 units TIDWM SIRISHA Administration Insulin Glargine 46 units 10/30/24 09:00 10/31/24 08:45 Insulin Glargine (*Bkc) 100 Units/Ml SUB-Q 46 units DAILY SIRISHA Administration Metoprolol Succinate 25 mg 10/29/24 11:25 10/31/24 08:44 Metoprolol Succinate Ext Rel 25 Mg Tabcr PO 25 mg DAILY SIRISHA Administration Ondansetron HCl 4 mg 10/30/24 12:57 Ondansetron Inj 4 Mg/2 Ml Vial IV PUSH Q6H PRN Nausea And Vomiting Pantoprazole Sodium 40 mg 10/30/24 09:00 10/31/24 08:44 Pantoprazole 40 Mg Tablet PO 40 mg QAM SIRISHA Administration Polysaccharide Iron Complex 150 mg 10/31/24 08:00 10/31/24 08:44 Polysaccharide Iron Complex 150 Mg Capsule PO 150 mg DAILY@0800 [facility] Administration Rivaroxaban 10 mg 10/30/24 18:00 10/30/24 17:40 Rivaroxaban 10 Mg Tablet PO 10 mg EVENING SIRISHA Administration Radiology Results: ITS Impressions Chest X-Ray 10/29/24 11:27 Impression: 1: Cardiomegaly with mild interstitial edema. Labs Labs: Laboratory Results - last 24 hr 10/30/24 10/31/24 10/31/24 20:09 06:21 06:24 WBC 6.4 RBC 2.54 L Hgb 7.4 L Hct 24.8 L MCV 97.6 MCH 29.1 MCHC 29.8 L RDW 17.2 H Plt Count 161 MPV 11.4 H Immature Gran % (Auto) 0.6 H Neut % (Auto) 68.3 Lymph % (Auto) 19.8 [place] % (Auto) 9.0 H Eos % (Auto) 2.0 Baso % (Auto) 0.3 Lymph # (Auto) 1.26 [place] # (Auto) 0.6 Eos # (Auto) 0.1 Baso # (Auto) 0.0 Abs Immat Gran (auto) 0.04 H Absolute Neuts (auto) 4.3 Absolute Nucleated RBC 0.000 Band Neutrophils % Not Reportable Nucleated RBC % 0.0 Platelet Estimate Adequate Hypochromasia 1+ Anisocytosis 1+ Moon Cells 1+ Schistocytes None seen Absolute Retic 0.10 Percent Retic 3.90 Immature Retic Fraction 27.0 H Retic Hgb Content 24.0 L Sodium 138 Potassium 4.3 Chloride 104 Carbon Dioxide 26 Anion Gap 8 BUN 62 H Creatinine 1.63 H Estim Creat Clear Calc 46 Estimated GFR 34 L Glucose 316 H POC Capillary Glucose 244 H Calcium 8.5 Iron 54 TIBC 221 L % Saturation 24 Transferrin 157 L Ferritin 256.00 H Total Bilirubin 0.2 Direct Bilirubin 0.0 AST 16 ALT 17 Alkaline Phosphatase 175 H Lactate Dehydrogenase 195 Troponin I 0.328 H* Total Protein 7.0 Albumin 2.8 L Vitamin B12 374.0 Folate 7.4 MARY ANN, IgG Interpret Positive MARY ANN, Poly Interpret 2+ MARY ANN, Complement Interp Negative 10/31/24 10/31/24 10/31/24 07:50 11:14 13:00 WBC RBC Hgb 8.6 L Hct 28.8 L MCV MCH MCHC RDW Plt Count MPV Immature Gran % (Auto) Neut % (Auto) Lymph % (Auto) [place] % (Auto) Eos % (Auto) Baso % (Auto) Lymph # (Auto) [place] # (Auto) Eos # (Auto) Baso # (Auto) Abs Immat Gran (auto) Absolute Neuts (auto) Absolute Nucleated RBC Band Neutrophils % Nucleated RBC % Platelet Estimate Hypochromasia Anisocytosis [place] Cells Schistocytes Absolute Retic Percent Retic Immature Retic Fraction Retic Hgb Content Sodium Potassium Chloride Carbon Dioxide Anion Gap BUN Creatinine Estim Creat Clear Calc Estimated GFR Glucose POC Capillary Glucose 273 H 226 H Calcium Iron TIBC % Saturation Transferrin Ferritin Total Bilirubin Direct Bilirubin AST ALT Alkaline Phosphatase Lactate Dehydrogenase Troponin I Total Protein Albumin Vitamin B12 Folate MARY ANN, IgG Interpret MARY ANN, Poly Interpret MARY ANN, Complement Interp 10/31/24 15:24 WBC RBC Hgb Hct MCV MCH MCHC RDW Plt Count MPV Immature Gran % (Auto) Neut % (Auto) Lymph % (Auto) [place] % (Auto) Eos % (Auto) Baso % (Auto) Lymph # (Auto) [place] # (Auto) Eos # (Auto) Baso # (Auto) Abs Immat Gran (auto) Absolute Neuts (auto) Absolute Nucleated RBC Band Neutrophils % Nucleated RBC % Platelet Estimate Hypochromasia Anisocytosis [place] Cells Schistocytes Absolute Retic Percent Retic Immature Retic Fraction Retic Hgb Content Sodium Potassium Chloride Carbon Dioxide Anion Gap BUN Creatinine Estim Creat Clear Calc Estimated GFR Glucose POC Capillary Glucose 100 Calcium Iron TIBC % Saturation Transferrin Ferritin Total Bilirubin Direct Bilirubin AST ALT Alkaline Phosphatase Lactate Dehydrogenase Troponin I Total Protein Albumin Vitamin B12 Folate MARY ANN, IgG Interpret MARY ANN, Poly Interpret MARY ANN, Complement Interp Hospitalist MIPS Advance Care Plan I have confirmed that the patient's Advanced Care Plan is present, code status is documented, or surrogate decision maker is listed in patient medical record.: Yes Medication Reconciliation I have utilized all available resources to obtain, update and review the patients current medications (includes all prescriptions, OTC, herbals, cannabis, and nutritional supplements).: Yes
[2024-10-31] MEDS: RIVAROXABAN 15 MG TABLET PO (17:16)
--- NOTE | 2024-10-31 17:44 | PC.NURSE ---
This patient, Brooke Garcia, was transferred to [[id number] ] on 10/31/24 at 1745. Personal belongings sent with patient. Report given to [ PADMA Vázquez @ [phone]]. Appropriate documentation sent with patient.
[2024-10-31] MEDS: levoFLOXacin 750 MG/D5W 150 ML 750 MG/150 ML BAG 100 MG IVPB (17:45)
--- NOTE | 2024-10-31 18:01 | PC.NURSE ---
This patient, Brooke Garcia, was received from IMU on 10/31/24 at 1801. Patient/family oriented to unit policies and routines
[2024-10-31] MEDS: GABAPENTIN 400 MG CAPSULE 1200 MG BY MOUTH (20:17)
[2024-10-31] MEDS: INSULIN GLARGINE (*BKC) 100 UNITS/ML 10 UNITS SUB-Q (20:17)
[2024-10-31 21:36] LABS: Glucose Point of Care 94 mg/dl (65-105)
[2024-10-31] MEDS: HYDROcodone/acetaminophen (*CRX) 10-325 MG TABLET 1 TAB PO (23:01)
[2024-11-01] VITALS (11 sets, daily range): BP systolic 92–118; BP diastolic 48–62; PULSE 84–99; RESP 16–20; TEMP 36.4–36.9; O2SAT 94–99
[2024-11-01 06:16] LABS: Hematocrit 26.7 % (37.0-47.0); Mean Corpuscular Volume 96.7 fl (80-100); Mean Platelet Volume 11.3 fl (7.4-10.4); Platelet Count Result 174 k/mm3 (150-375); Red Blood Count 2.76 M/mm3 (4.2-5.4); White Blood Count 6.6 K/mm3 (4.5-10.0)
[2024-11-01] MEDS: GABAPENTIN 400 MG CAPSULE BY MOUTH ×2 (06:16→13:38)
[2024-11-01 06:26] LABS: Alanine Aminotransferase 14 U/L (6-35); Albumin Level 2.7 g/dL (3.5-5.1); Alkaline Phosphatase 149 U/L (38-126); Anion Gap 9 mmol/L (4-12); Aspartate Amino Transferase 17 U/L (14-36); Bilirubin,Total 0.3 mg/dL (0.2-1.3); Blood Urea Nitrogen 59 mg/dL (7-17); Calcium 8.3 mg/dL (8.4-10.2); Carbon Dioxide 23 mmol/L (22-30); Chloride 107 mmol/L (98-107); Estimated CRCL calculation 57 ml/min; Estimated Glomerular Filt Rate 43; Glucose 84 mg/dL (65-110); Potassium 4.3 mmol/L (3.4-5.0); Sodium 139 mmol/L (137-145)
[2024-11-01 06:33] LABS: NT Pro B Type Natriuretic Pept 20600 pg/mL (19.9-100)
[2024-11-01 07:58] LABS: Haptoglobin 336 mg/dL (43-212)
[2024-11-01 08:02] LABS: Glucose Point of Care 82 mg/dl (65-105)
[2024-11-01] MEDS: POLYSACCHARIDE IRON COMPLEX 150 MG CAPSULE PO (09:11)
[2024-11-01] MEDS: CELECOXIB 200 MG CAPSULE PO ×2 (09:13→17:22)
[2024-11-01] MEDS: EZETIMIBE 10 MG TABLET PO (09:13)
[2024-11-01] MEDS: ATORVASTATIN 40 MG TABLET 80 MG PO (09:14)
[2024-11-01] MEDS: PANTOPRAZOLE 40 MG TABLET PO (09:15)
[2024-11-01] MEDS: BENZONATATE 100 MG CAPSULE 200 MG PO ×3 (09:16→17:22)
[2024-11-01] MEDS: CYCLOBENZAPRINE HCL 10 MG TABLET PO ×3 (09:16→17:22)
[2024-11-01] MEDS: ASPIRIN 81 MG ENTERIC TABLET PO (09:16)
[2024-11-01] MEDS: INSULIN ASPART (*BKC) 100 UNITS/ML 8 UNITS SUB-Q ×3 (09:18→17:29)
--- NOTE | 2024-11-01 09:51 | P.PNIM_ITS ---
Progress Note: A&P Assessment and Plan (1) Acute exacerbation of CHF (congestive heart failure): Qualifiers: Heart failure type: unspecified Qualified Code(s): I50.9 - Heart failure, unspecified Code(s): I50.9 - Heart failure, unspecified Status: Inactive Assessment and Plan: Will continue with IV Lasix. Monitor I's and O's. Cardiology consult noted (2) Pneumonia: Qualifiers: Laterality: unspecified laterality Lung location: unspecified part of lung Pneumonia type: due to unspecified organism Qualified Code(s): J18.9 - Pneumonia, unspecified organism Code(s): J18.9 - Pneumonia, unspecified organism Status: Inactive Assessment and Plan: Continue with IV Levaquin. Repeat chest x-ray in the morning (3) Acute non-ST elevation myocardial infarction (NSTEMI): Code(s): I21.4 - Non-ST elevation (NSTEMI) myocardial infarction Status: Inactive Assessment and Plan: Cardiology consult noted. Current treatment. trend troponin Plan Acute on chronic hypoxemic respiratory From CHF and pneumonia CT showed bilateral pleural effusion with atelectasis and focal pneumonia Currently on 4 L oxygen, baseline is 2 L oxygen. Continue Lasix 40 mg IV b.i.d. and levofloxacin Monitor. 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 CHF exacerbation No echo on file does unable to specify Patient presented with shortness of breath, leg edema orthopnea. He has a CT chest showed a urine effusion bilaterally atelectasis. Continue lasix 40 IV b.i.d. Cardiology consulted. Pneumonia Resolved CT chest showed a right bundle Blood and sputum culture ordered MRSA pending DC Levaquin Follow-up closely. UTI Started on cefdinir 300 mg p.o. q.d. Reviewed urine culture which shows Klebsiella pneumoniae Anemia Hemoglobin is 8.6 GI consulted outpatient follow-up for endoscopy and colonoscopy Iron panel on FOBT pending. Monitor H and H Type 2 diabetes Blood sugar not on target Will add Lantus 10 units in the night and correctional insulin Continue 46U QD Continue home Lantus Humalog insulin. Sliding scale insulin with Accu-Cheks. Chronic Garcia for urinary incontinence Discussed voiding trial but patient refuses. Continue Garcia per patient's preference History of stroke Continue aspirin and Lipitor No residual weakness Afib on Metoprolol and DC heparin infusion Xarelto 15 mg PO QD cardiology consulted DVT prophylaxis on heparin infusion. 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 Patient blood sugar morning in the 80s so held the Lantus 46 units. Patient repeat chest x-ray shows increasing moderate the sized pleural effusion on the left side. Holding Xarelto for possible thoracentesis. Ordered pleural fluid analysis and ordered serum LDH and total protein. Urine culture shows Klebsiella pneumonia and started on cefdinir Review of Systems Review of Systems: All other systems reviewed and negative except as noted in history above. Exam Narrative: General: alert and comfortable Eyes: EOMI, PERRLA ENNT External ears normal, Neck is supple, no masses, Respiratory systems: Air entry decreased, few rales at bases Cardiovascular S1, S2, normal rhythm, no murmur, rub, or gallop; no thrill or palpable murmurs on palpation. Gastrointestinal: soft, non-tender, and non-distended abdomen with no masses; BS present Skin: no rash, lesions, ulcerations, subcutaneous nodules or induration Musculoskeletal: Bilateral lower extremity edema 3+ Neurologic: Alert and oriented x3, non focal Mental Status Exam: normal affect Objective Data Vital Signs Vital Signs: Vital Signs - 24 hr 10/31/24 10:00 10/31/24 10:27 10/31/24 12:00 Temperature 97.6 F Pulse Rate 94 88 Respiratory Rate 22 H Blood Pressure 123/59 L Pulse Oximetry 98 Oxygen Delivery Nasal Cannula Oxygen Flow Rate 2 Fraction of Inspired Oxygen 10/31/24 12:00 10/31/24 16:00 10/31/24 16:00 Temperature 97.6 F Pulse Rate 90 87 86 Respiratory Rate 22 H Blood Pressure 130/61 Pulse Oximetry 100 Oxygen Delivery Oxygen Flow Rate Fraction of Inspired Oxygen 10/31/24 20:00 10/31/24 20:00 10/31/24 20:00 Temperature 97.5 F L Pulse Rate 86 88 89 Respiratory Rate 22 H 16 Blood Pressure 98/55 L Pulse Oximetry 100 98 Oxygen Delivery Nasal Cannula Oxygen Flow Rate 2 Fraction of Inspired Oxygen 28 10/31/24 23:17 11/01/24 00:00 11/01/24 00:00 Temperature 97.7 F Pulse Rate 87 86 86 Respiratory Rate 23 H 16 Blood Pressure 105/58 L Pulse Oximetry 96 99 Oxygen Delivery Autopap Oxygen Flow Rate Fraction of Inspired Oxygen 11/01/24 02:30 11/01/24 04:00 11/01/24 04:00 Temperature 98.4 F Pulse Rate 84 85 Respiratory Rate 20 Blood Pressure 98/52 L Pulse Oximetry 94 Oxygen Delivery Autopap Oxygen Flow Rate Fraction of Inspired Oxygen 11/01/24 08:19 11/01/24 08:30 Temperature 97.7 F Pulse Rate 88 88 Respiratory Rate 20 Blood Pressure 92/48 L Pulse Oximetry 99 Oxygen Delivery Oxygen Flow Rate Fraction of Inspired Oxygen Intake/Output Intake/Output: Intake & Output 10/29/24 10/30/24 10/31/24 11/01/24 23:59 23:59 23:59 23:59 Intake Total 1540 3549.5 1910 250 Output Total 1600 2750 2150 1600 Balance -60 799.5 -240 1350 Meds/Results Medications: Active Medications Generic Name Dose Route Start Last Admin Trade Name Freq PRN Reason Stop Dose Admin Hydrocodone Bitart/Acetaminophen 1 tab 10/30/24 05:59 10/31/24 23:01 Hydrocodone/Acetaminophen (*Crx) 10-325 Mg Tablet PO 1 tab BID PRN Administration pain Aspirin 81 mg 10/30/24 09:00 11/01/24 09:16 Aspirin 81 Mg Enteric Tablet PO 81 mg QAM SIRISHA Administration Atorvastatin Calcium 80 mg 10/29/24 11:15 11/01/24 09:14 Atorvastatin 40 Mg Tablet PO 80 mg DAILY SIRISHA Administration Benzonatate 200 mg 10/29/24 17:00 11/01/24 09:16 Benzonatate 100 Mg Capsule PO 200 mg TID SIRISHA Administration Celecoxib 200 mg 10/29/24 17:00 11/01/24 09:13 Celecoxib 200 Mg Capsule PO 200 mg BIDWM SIRISHA Administration Cyclobenzaprine HCl 10 mg 10/30/24 09:00 11/01/24 09:16 Cyclobenzaprine Hcl 10 Mg Tablet PO 10 mg TID SIRISHA Administration Dextrose 12.5 gm 10/31/24 16:56 Dextrose 50% 25 Gm/50 Ml Syringe IV PUSH PRN PRN Hypoglycemia Protocol Docusate Sodium 100 mg 10/29/24 11:10 Docusate Sodium 100 Mg Capsule PO BID PRN constipation Ezetimibe 10 mg 10/29/24 11:20 11/01/24 09:13 Ezetimibe 10 Mg Tablet PO 10 mg DAILY SIRISHA Administration Furosemide 40 mg 10/29/24 17:10 11/01/24 08:19 Furosemide Inj 40 Mg/4 Ml Vial IV PUSH Not Given BID SIRISAH Gabapentin 400 mg 10/29/24 14:00 11/01/24 06:16 Gabapentin 400 Mg Capsule BY MOUTH 400 mg 0700,1400 SIRISHA Administration Gabapentin 1,200 mg 10/29/24 21:00 10/31/24 20:17 Gabapentin 400 Mg Capsule BY MOUTH 1,200 mg QHS SIRISHA Administration Glucagon 1 mg 10/31/24 16:56 Glucagon For Inj 1 Mg Vial IM PRN PRN Hypoglycemia Protocol Glucose 15 gm 10/31/24 16:56 Glucose Oral Gel 15 Gm Of Glucse In 37.5 Gm Tube PO PRN PRN Hypoglycemia Protocol Levofloxacin/Dextrose 750 mg in 150 mls @ 100 mls/hr 10/29/24 17:00 10/31/24 19:15 Levaquin 750 Mg/D5w 150 Ml IVPB Infused Q24H SIRISHA Infusion Dextrose 1,000 mls @ 100 mls/hr 10/31/24 16:56 Dextrose 5% 1,000 Ml IVPB PRN PRN Hypoglycemia Protocol Insulin Aspart 8 units 10/29/24 12:00 11/01/24 09:18 Insulin Aspart (*Bkc) 100 Units/Ml SUB-Q 8 units TIDWM SIRISHA Administration Insulin Aspart 2 - 5 units 10/31/24 17:00 11/01/24 08:12 Insulin Aspart (*Bkc) 100 Units/Ml SUB-Q Not Given TIDWM [facility] Protocol Insulin Glargine 46 units 10/30/24 09:00 11/01/24 08:11 Insulin Glargine (*Bkc) 100 Units/Ml SUB-Q Not Given DAILY [facility] Insulin Glargine 10 units 10/31/24 21:00 10/31/24 20:17 Insulin Glargine (*Bkc) 100 Units/Ml SUB-Q 10 units HS SIRISHA Administration Metoprolol Succinate 25 mg 10/29/24 11:25 11/01/24 08:19 Metoprolol Succinate Ext Rel 25 Mg Tabcr PO Not Given DAILY SIRISHA Ondansetron HCl 4 mg 10/30/24 12:57 Ondansetron Inj 4 Mg/2 Ml Vial IV PUSH Q6H PRN Nausea And Vomiting Pantoprazole Sodium 40 mg 10/30/24 09:00 11/01/24 09:15 Pantoprazole 40 Mg Tablet PO 40 mg QAM SIRISHA Administration Polysaccharide Iron Complex 150 mg 10/31/24 08:00 11/01/24 09:11 Polysaccharide Iron Complex 150 Mg Capsule PO 150 mg DAILY@0800 SIRISAH Administration Rivaroxaban 15 mg 10/31/24 18:00 10/31/24 17:16 Rivaroxaban 15 Mg Tablet PO 15 mg EVENING SIRISHA Administration Radiology Results: ITS Impressions Chest X-Ray 10/29/24 11:27 Impression: 1: Cardiomegaly with mild interstitial edema. Labs Labs: Laboratory Results - last 24 hr 10/31/24 10/31/24 10/31/24 06:24 11:14 13:00 WBC RBC Hgb 8.6 L Hct 28.8 L MCV MCH MCHC RDW Plt Count MPV Haptoglobin 336 H Sodium Potassium Chloride Carbon Dioxide Anion Gap BUN Creatinine Estim Creat Clear Calc Estimated GFR Glucose POC Capillary Glucose 226 H Calcium Total Bilirubin AST ALT Alkaline Phosphatase NT-Pro-B Natriuret Pep Total Protein Albumin MARY ANN, IgG Interpret Positive MARY ANN, Poly Interpret 2+ MARY ANN, Complement Interp Negative 10/31/24 10/31/24 11/01/24 15:24 20:27 05:50 WBC 6.6 RBC 2.76 L Hgb 8.0 L Hct 26.7 L MCV 96.7 MCH 29.0 MCHC 30.0 L RDW 17.0 H Plt Count 174 MPV 11.3 H Haptoglobin Sodium 139 Potassium 4.3 Chloride 107 Carbon Dioxide 23 Anion Gap 9 BUN 59 H Creatinine 1.32 H Estim Creat Clear Calc 57 Estimated GFR 43 L Glucose 84 POC Capillary Glucose 100 94 Calcium 8.3 L Total Bilirubin 0.3 AST 17 ALT 14 Alkaline Phosphatase 149 H NT-Pro-B Natriuret Pep 21937 H Total Protein 6.0 L Albumin 2.7 L MARY ANN, IgG Interpret MARY ANN, Poly Interpret MARY ANN, Complement Interp 11/01/24 07:49 WBC RBC Hgb Hct MCV MCH MCHC RDW Plt Count MPV Haptoglobin Sodium Potassium Chloride Carbon Dioxide Anion Gap BUN Creatinine Estim Creat Clear Calc Estimated GFR Glucose POC Capillary Glucose 82 Calcium Total Bilirubin AST ALT Alkaline Phosphatase NT-Pro-B Natriuret Pep Total Protein Albumin MARY ANN, IgG Interpret MARY ANN, Poly Interpret MARY ANN, Complement Interp Hospitalist MIPS Advance Care Plan I have confirmed that the patient's Advanced Care Plan is present, code status is documented, or surrogate decision maker is listed in patient medical record.: Yes Medication Reconciliation I have utilized all available resources to obtain, update and review the patients current medications (includes all prescriptions, OTC, herbals, cannabis, and nutritional supplements).: Yes
[2024-11-01 11:40] LABS: Glucose Point of Care 83 mg/dl (65-105)
[2024-11-01] MEDS: CEFDINIR 300 MG CAPSULE PO ×2 (12:07→20:27)
--- NOTE | 2024-11-01 13:08 | P.PNCA_ITS ---
Progress Note: A&P Assessment and Plan (1) CHF (congestive heart failure): Code(s): I50.9 - Heart failure, unspecified Status: Acute Plan 1. Acute on chronic heart failure with reduced LVEF. Last LVEF 45% per [facility] notes. Echocardiogram this admission shows LVEF 25-30%. 2. Elevated troponins. Troponin elevation likely due to demand ischemia, unlikely ACS. 3. Acute on chronic hypoxic respiratory failure 4. Pneumonia 5. 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 Has been medically managed. 6. Paroxysmal atrial fibrillation 7. Diabetes mellitus 8. History of seizure disorder 9. PVD 10. History of PE 11. CKD 12. Medication noncompliance. 13. Anemia PLAN -Continue IV Lasix 40mg BID. Please monitor strict I/Os. Will give a one time dose of Metolazone today. -Holding Metoprolol for now to allow blood pressure room for diuresis. Unable to advance heart failure GDMT at this time. -Continue ASA, Atorvastatin, Zetia for CAD. -Continue Xarelto 15mg once daily for stroke risk reduction for AFIB. Subjective Date/time seen: 11/01/24 13:08 Interval history: Reason for visit: CHF HPI: We are consulted for CHF, elevated troponin. This is a 48 year old female who presented to [place] with shortness of breath and cough for the past month. Apparently was recently hospitalized at [facility] for similar symptoms. On 2L of O2 at home. Workup at [place] shows troponins of 755, 700. Troponin here 0.373. NT pro BNP of 10,650. Chest CTA with bilateral pleural effusions, possible pneumonia. EKG with sinus rhythm, LVH. No prior echocardiogram in our system. Upon my evaluation, patient is quite sleepy. Reports improvement in her shortness of breath. No chest pain. Personally reviewed [facility] records and noted as below: Has history of seizure disorder, CHF, DM, PVD, history of PE, PAF, CKD, medication noncompliance. Has known diffuse MVCAD, which was discovered on [facility] 2021, not a candidate for bypass surgery due to unsuitable anatomy. Admitted to [facility] in September for DKA, NSTEMI, flu +. Was intubated from 09/15 to 09/22, Workup of altered mental status negative, including brain MRI, EEG. 2/ blood cultures positive for MSSA bacteremia. DEMI negative for valvular heart disease. NSTEMI thought to be due to demand ischemia. LVEF noted to be 45%. Primary order processing specialist is Dr. Rose Conn at [facility], last visit was in July 2024. Date of service 10/31: No chest pain today. Shortness of breath improving. Still has lower extremity swellings. Continues to have paroxysmal nocturnal dyspnea and orthopnea. Date of service 11/01: Still feels like she gets winded at times. Still with lower extremity edema. Review of Systems Review of Systems: All systems reviewed & are unremarkable except as noted in HPI and below (HPI) Exam Const: General: no acute distress HENMT: Mouth: Yes moist mucous membranes Eyes: General: appearance normal, both eyes and all related structures Sclera: sclerae normal Resp: Effort & Inspection: normal respiratory effort Auscultation: diminished lung sounds Cardio: Rate: regular rate Rhythm: regular rhythm Heart sounds: no murmurs Other: + Bilateral lower extremity edema Skin: General skin exam: normal color Neuro: Speech: normal speech Psych: Mental Status: mental status grossly normal Affect: normal affect Objective Data Vital Signs Vital Signs: Vital Signs - 24 hr 10/31/24 16:00 10/31/24 16:00 10/31/24 20:00 Temperature 36.4 C Pulse Rate 87 86 86 Respiratory Rate 22 H 22 H Blood Pressure 130/61 Pulse Oximetry 100 100 Oxygen Delivery Nasal Cannula Oxygen Flow Rate 2 Fraction of Inspired Oxygen 28 10/31/24 20:00 10/31/24 20:00 10/31/24 23:17 Temperature 36.4 C L Pulse Rate 88 89 87 Respiratory Rate 16 23 H Blood Pressure 98/55 L Pulse Oximetry 98 96 Oxygen Delivery Autopap Oxygen Flow Rate Fraction of Inspired Oxygen 11/01/24 00:00 11/01/24 00:00 11/01/24 02:30 Temperature 36.5 C Pulse Rate 86 86 Respiratory Rate 16 Blood Pressure 105/58 L Pulse Oximetry 99 Oxygen Delivery Autopap Oxygen Flow Rate Fraction of Inspired Oxygen 11/01/24 04:00 11/01/24 04:00 11/01/24 08:00 Temperature 36.9 C Pulse Rate 84 85 Respiratory Rate 20 Blood Pressure 98/52 L Pulse Oximetry 94 95 Oxygen Delivery Room Air Oxygen Flow Rate Fraction of Inspired Oxygen 11/01/24 08:00 11/01/24 08:19 11/01/24 08:30 Temperature 36.5 C Pulse Rate 88 88 88 Respiratory Rate 20 Blood Pressure 92/48 L Pulse Oximetry 99 Oxygen Delivery Oxygen Flow Rate Fraction of Inspired Oxygen 11/01/24 12:00 11/01/24 12:00 Temperature 36.5 C Pulse Rate 95 94 Respiratory Rate 20 Blood Pressure 98/59 L Pulse Oximetry 94 Oxygen Delivery Oxygen Flow Rate Fraction of Inspired Oxygen Intake/Output Intake/Output: Intake & Output 10/29/24 10/30/24 10/31/24 11/01/24 23:59 23:59 23:59 23:59 Intake Total 1540 3549.5 1910 350 Output Total 1600 2750 2150 1600 Balance -60 799.5 -240 1250 Meds/Results Medications: Active Medications Generic Name Dose Route Start Last Admin Trade Name Freq PRN Reason Stop Dose Admin Hydrocodone Bitart/Acetaminophen 1 tab 10/30/24 05:59 10/31/24 23:01 Hydrocodone/Acetaminophen (*Crx) 10-325 Mg Tablet PO 1 tab BID PRN Administration pain Aspirin 81 mg 10/30/24 09:00 11/01/24 09:16 Aspirin 81 Mg Enteric Tablet PO 81 mg QAM SIRISHA Administration Atorvastatin Calcium 80 mg 10/29/24 11:15 11/01/24 09:14 Atorvastatin 40 Mg Tablet PO 80 mg DAILY SIRISHA Administration Benzonatate 200 mg 10/29/24 17:00 11/01/24 12:07 Benzonatate 100 Mg Capsule PO 200 mg TID SIRISHA Administration Cefdinir 300 mg 11/01/24 10:30 11/01/24 12:07 Cefdinir 300 Mg Capsule PO 11/07/24 21:01 300 mg Q12HR SIRISHA Administration Celecoxib 200 mg 10/29/24 17:00 11/01/24 09:13 Celecoxib 200 Mg Capsule PO 200 mg BIDWM SIRISHA Administration Cyclobenzaprine HCl 10 mg 10/30/24 09:00 11/01/24 12:08 Cyclobenzaprine Hcl 10 Mg Tablet PO 10 mg TID SIRISHA Administration Dextrose 12.5 gm 10/31/24 16:56 Dextrose 50% 25 Gm/50 Ml Syringe IV PUSH PRN PRN Hypoglycemia Protocol Docusate Sodium 100 mg 10/29/24 11:10 Docusate Sodium 100 Mg Capsule PO BID PRN constipation Ezetimibe 10 mg 10/29/24 11:20 11/01/24 09:13 Ezetimibe 10 Mg Tablet PO 10 mg DAILY SIRISHA Administration Furosemide 40 mg 10/29/24 17:10 11/01/24 08:19 Furosemide Inj 40 Mg/4 Ml Vial IV PUSH Not Given BID SIRISHA Gabapentin 400 mg 10/29/24 14:00 11/01/24 06:16 Gabapentin 400 Mg Capsule BY MOUTH 400 mg 0700,1400 SIRISHA Administration Gabapentin 1,200 mg 10/29/24 21:00 10/31/24 20:17 Gabapentin 400 Mg Capsule BY MOUTH 1,200 mg QHS SIRISHA Administration Glucagon 1 mg 10/31/24 16:56 Glucagon For Inj 1 Mg Vial IM PRN PRN Hypoglycemia Protocol Glucose 15 gm 10/31/24 16:56 Glucose Oral Gel 15 Gm Of Glucse In 37.5 Gm Tube PO PRN PRN Hypoglycemia Protocol Dextrose 1,000 mls @ 100 mls/hr 10/31/24 16:56 Dextrose 5% 1,000 Ml IVPB PRN PRN Hypoglycemia Protocol Insulin Aspart 8 units 10/29/24 12:00 11/01/24 12:06 Insulin Aspart (*Bkc) 100 Units/Ml SUB-Q 8 units TIDWM SIRISHA Administration Insulin Aspart 2 - 5 units 10/31/24 17:00 11/01/24 11:57 Insulin Aspart (*Bkc) 100 Units/Ml SUB-Q Not Given TIDWM [facility] Protocol Insulin Glargine 46 units 10/30/24 09:00 11/01/24 08:11 Insulin Glargine (*Bkc) 100 Units/Ml SUB-Q Not Given DAILY [facility] Insulin Glargine 10 units 10/31/24 21:00 10/31/24 20:17 Insulin Glargine (*Bkc) 100 Units/Ml SUB-Q 10 units HS SIRISHA Administration Metolazone 5 mg 11/01/24 13:07 Metolazone 5 Mg Tablet PO 11/01/24 13:08 ONCE ONE Metoprolol Succinate 25 mg 10/29/24 11:25 11/01/24 08:19 Metoprolol Succinate Ext Rel 25 Mg Tabcr PO Not Given DAILY [facility] Ondansetron HCl 4 mg 10/30/24 12:57 Ondansetron Inj 4 Mg/2 Ml Vial IV PUSH Q6H PRN Nausea And Vomiting Pantoprazole Sodium 40 mg 10/30/24 09:00 11/01/24 09:15 Pantoprazole 40 Mg Tablet PO 40 mg QAM SIRISHA Administration Polysaccharide Iron Complex 150 mg 10/31/24 08:00 11/01/24 09:11 Polysaccharide Iron Complex 150 Mg Capsule PO 150 mg DAILY@0800 SIRISHA Administration Rivaroxaban 15 mg 10/31/24 18:00 10/31/24 17:16 Rivaroxaban 15 Mg Tablet PO 15 mg EVENING SIRISHA Administration Radiology Results: ITS Impressions Chest X-Ray 10/29/24 11:27 Impression: 1: Cardiomegaly with mild interstitial edema. Labs Labs: Laboratory Results - last 24 hr 10/31/24 10/31/24 10/31/24 06:24 11:14 13:00 WBC RBC Hgb 8.6 L Hct 28.8 L MCV MCH MCHC RDW Plt Count MPV Haptoglobin 336 H Sodium Potassium Chloride Carbon Dioxide Anion Gap BUN Creatinine Estim Creat Clear Calc Estimated GFR Glucose POC Capillary Glucose 226 H Calcium Total Bilirubin AST ALT Alkaline Phosphatase NT-Pro-B Natriuret Pep Total Protein Albumin 10/31/24 10/31/24 11/01/24 15:24 20:27 05:50 WBC 6.6 RBC 2.76 L Hgb 8.0 L Hct 26.7 L MCV 96.7 MCH 29.0 MCHC 30.0 L RDW 17.0 H Plt Count 174 MPV 11.3 H Haptoglobin Sodium 139 Potassium 4.3 Chloride 107 Carbon Dioxide 23 Anion Gap 9 BUN 59 H Creatinine 1.32 H Estim Creat Clear Calc 57 Estimated GFR 43 L Glucose 84 POC Capillary Glucose 100 94 Calcium 8.3 L Total Bilirubin 0.3 AST 17 ALT 14 Alkaline Phosphatase 149 H NT-Pro-B Natriuret Pep 26623 H Total Protein 6.0 L Albumin 2.7 L 11/01/24 11/01/24 07:49 11:37 WBC RBC Hgb Hct MCV MCH MCHC RDW Plt Count MPV Haptoglobin Sodium Potassium Chloride Carbon Dioxide Anion Gap BUN Creatinine Estim Creat Clear Calc Estimated GFR Glucose POC Capillary Glucose 82 83 Calcium Total Bilirubin AST ALT Alkaline Phosphatase NT-Pro-B Natriuret Pep Total Protein Albumin
[2024-11-01] MEDS: metOLazone 5 MG TABLET PO (13:38)
[2024-11-01 16:23] LABS: Glucose Point of Care 108 mg/dl (65-105)
--- NOTE | 2024-11-01 16:34 | WPDGIPROGNO ---
Progress Note: A&P Assessment and Plan (1) Iron deficiency anemia: Code(s): D50.9 - Iron deficiency anemia, unspecified Status: Acute Assessment and Plan: As previously discussed, colonoscopy and EGD are indicated to study her borderline iron deficiency, However, due to the patient's present cardiovascular status, (although improved) these procedures will be postponed. We will re-evaluate her candidacy for these procedures as an outpatient once her cardiovascular stability improves post-discharge. Time Spent With Patient Time with patient: less than 15 minutes Subjective Date/time seen: 11/01/24 16:34 Interval history: patient is somewhat improved from yesterday regarding respiratory status, although still with cough and oxygen requirement. She is currently receiving diuretic therapy and follow by cardiology service. Exam Narrative: Exam un Objective Data Vital Signs Vital Signs: Vital Signs - 24 hr 10/31/24 20:00 10/31/24 20:00 10/31/24 20:00 Temperature 97.5 F L Pulse Rate 86 88 89 Respiratory Rate 22 H 16 Blood Pressure 98/55 L Pulse Oximetry 100 98 Oxygen Delivery Nasal Cannula Oxygen Flow Rate 2 Fraction of Inspired Oxygen 28 10/31/24 23:17 11/01/24 00:00 11/01/24 00:00 Temperature 97.7 F Pulse Rate 87 86 86 Respiratory Rate 23 H 16 Blood Pressure 105/58 L Pulse Oximetry 96 99 Oxygen Delivery Autopap Oxygen Flow Rate Fraction of Inspired Oxygen 11/01/24 02:30 11/01/24 04:00 11/01/24 04:00 Temperature 98.4 F Pulse Rate 84 85 Respiratory Rate 20 Blood Pressure 98/52 L Pulse Oximetry 94 Oxygen Delivery Autopap Oxygen Flow Rate Fraction of Inspired Oxygen 11/01/24 08:00 11/01/24 08:00 11/01/24 08:19 Temperature Pulse Rate 88 88 Respiratory Rate Blood Pressure Pulse Oximetry 95 Oxygen Delivery Room Air Oxygen Flow Rate Fraction of Inspired Oxygen 11/01/24 08:30 11/01/24 12:00 11/01/24 12:00 Temperature 97.7 F 97.7 F Pulse Rate 88 95 94 Respiratory Rate 20 20 Blood Pressure 92/48 L 98/59 L Pulse Oximetry 99 94 Oxygen Delivery Oxygen Flow Rate Fraction of Inspired Oxygen 11/01/24 13:08 11/01/24 15:54 11/01/24 16:00 Temperature 97.8 F 97.9 F Pulse Rate 97 97 98 Respiratory Rate 18 18 Blood Pressure 105/51 L 113/59 L 110/57 L Pulse Oximetry 94 97 99 Oxygen Delivery Oxygen Flow Rate Fraction of Inspired Oxygen Intake/Output Intake/Output: Intake & Output 10/29/24 10/30/24 10/31/24 11/01/24 23:59 23:59 23:59 23:59 Intake Total 1540 3549.5 1910 590 Output Total 1600 2750 2150 2175 Balance -60 799.5 -755 -7109 Meds/Results Medications: Active Medications Generic Name Dose Route Start Last Admin Trade Name Freq PRN Reason Stop Dose Admin Hydrocodone Bitart/Acetaminophen 1 tab 10/30/24 05:59 10/31/24 23:01 Hydrocodone/Acetaminophen (*Crx) 10-325 Mg Tablet PO 1 tab BID PRN Administration pain Aspirin 81 mg 10/30/24 09:00 11/01/24 09:16 Aspirin 81 Mg Enteric Tablet PO 81 mg QAM SIRISHA Administration Atorvastatin Calcium 80 mg 10/29/24 11:15 11/01/24 09:14 Atorvastatin 40 Mg Tablet PO 80 mg DAILY SIRISHA Administration Benzonatate 200 mg 10/29/24 17:00 11/01/24 12:07 Benzonatate 100 Mg Capsule PO 200 mg TID SIRISHA Administration Cefdinir 300 mg 11/01/24 10:30 11/01/24 12:07 Cefdinir 300 Mg Capsule PO 11/07/24 21:01 300 mg Q12HR SIRISHA Administration Celecoxib 200 mg 10/29/24 17:00 11/01/24 09:13 Celecoxib 200 Mg Capsule PO 200 mg BIDWM SIRISHA Administration Cyclobenzaprine HCl 10 mg 10/30/24 09:00 11/01/24 12:08 Cyclobenzaprine Hcl 10 Mg Tablet PO 10 mg TID SIRISHA Administration Dextrose 12.5 gm 10/31/24 16:56 Dextrose 50% 25 Gm/50 Ml Syringe IV PUSH PRN PRN Hypoglycemia Protocol Docusate Sodium 100 mg 10/29/24 11:10 Docusate Sodium 100 Mg Capsule PO BID PRN constipation Ezetimibe 10 mg 10/29/24 11:20 11/01/24 09:13 Ezetimibe 10 Mg Tablet PO 10 mg DAILY SIRISHA Administration Furosemide 40 mg 10/29/24 17:10 11/01/24 08:19 Furosemide Inj 40 Mg/4 Ml Vial IV PUSH Not Given BID SIRISHA Gabapentin 400 mg 10/29/24 14:00 11/01/24 13:38 Gabapentin 400 Mg Capsule BY MOUTH 400 mg 0700,1400 SIRISHA Administration Gabapentin 1,200 mg 10/29/24 21:00 10/31/24 20:17 Gabapentin 400 Mg Capsule BY MOUTH 1,200 mg QHS SIRISHA Administration Glucagon 1 mg 10/31/24 16:56 Glucagon For Inj 1 Mg Vial IM PRN PRN Hypoglycemia Protocol Glucose 15 gm 10/31/24 16:56 Glucose Oral Gel 15 Gm Of Glucse In 37.5 Gm Tube PO PRN PRN Hypoglycemia Protocol Dextrose 1,000 mls @ 100 mls/hr 10/31/24 16:56 Dextrose 5% 1,000 Ml IVPB PRN PRN Hypoglycemia Protocol Insulin Aspart 8 units 10/29/24 12:00 11/01/24 12:06 Insulin Aspart (*Bkc) 100 Units/Ml SUB-Q 8 units TIDWM [facility] Administration Insulin Aspart 2 - 5 units 10/31/24 17:00 11/01/24 11:57 Insulin Aspart (*Bkc) 100 Units/Ml SUB-Q Not Given TIDWM [facility] Protocol Insulin Glargine 46 units 10/30/24 09:00 11/01/24 08:11 Insulin Glargine (*Bkc) 100 Units/Ml SUB-Q Not Given DAILY [facility] Insulin Glargine 10 units 10/31/24 21:00 10/31/24 20:17 Insulin Glargine (*Bkc) 100 Units/Ml SUB-Q 10 units SIRISHA Administration Metoprolol Succinate 25 mg 10/29/24 11:25 11/01/24 08:19 Metoprolol Succinate Ext Rel 25 Mg Tabcr PO Not Given DAILY [facility] Ondansetron HCl 4 mg 10/30/24 12:57 Ondansetron Inj 4 Mg/2 Ml Vial IV PUSH Q6H PRN Nausea And Vomiting Pantoprazole Sodium 40 mg 10/30/24 09:00 11/01/24 09:15 Pantoprazole 40 Mg Tablet PO 40 mg QAM SIRISHA Administration Polysaccharide Iron Complex 150 mg 10/31/24 08:00 11/01/24 09:11 Polysaccharide Iron Complex 150 Mg Capsule PO 150 mg DAILY@0800 [facility] Administration Rivaroxaban 15 mg 10/31/24 18:00 10/31/24 17:16 Rivaroxaban 15 Mg Tablet PO 15 mg EVENING SIRISHA Administration Radiology Results: ITS Impressions Chest X-Ray 11/01/24 14:12 IMPRESSION: 1. Increased opacity in the left mid and lower lung zone consistent with increasing moderate-sized pleural effusion, atelectasis, pneumonia or some combination thereof. Labs Labs: Laboratory Results - last 24 hr 10/31/24 10/31/24 11/01/24 06:24 20:27 05:50 WBC 6.6 RBC 2.76 L Hgb 8.0 L Hct 26.7 L MCV 96.7 MCH 29.0 MCHC 30.0 L RDW 17.0 H Plt Count 174 MPV 11.3 H Haptoglobin 336 H Sodium 139 Potassium 4.3 Chloride 107 Carbon Dioxide 23 Anion Gap 9 BUN 59 H Creatinine 1.32 H Estim Creat Clear Calc 57 Estimated GFR 43 L Glucose 84 POC Capillary Glucose 94 Calcium 8.3 L Total Bilirubin 0.3 AST 17 ALT 14 Alkaline Phosphatase 149 H NT-Pro-B Natriuret Pep 34625 H Total Protein 6.0 L Albumin 2.7 L 11/01/24 11/01/24 11/01/24 07:49 11:37 16:12 WBC RBC Hgb Hct MCV MCH MCHC RDW Plt Count MPV Haptoglobin Sodium Potassium Chloride Carbon Dioxide Anion Gap BUN Creatinine Estim Creat Clear Calc Estimated GFR Glucose POC Capillary Glucose 82 83 108 H Calcium Total Bilirubin AST ALT Alkaline Phosphatase NT-Pro-B Natriuret Pep Total Protein Albumin
[2024-11-01] MEDS: FUROSEMIDE INJ 40 MG/4 ML VIAL IV PUSH (17:22)
[2024-11-01] MEDS: GABAPENTIN 400 MG CAPSULE 1200 MG BY MOUTH (20:27)
[2024-11-01] MEDS: HYDROcodone/acetaminophen (*CRX) 10-325 MG TABLET 1 TAB PO (20:27)
[2024-11-01] MEDS: INSULIN GLARGINE (*BKC) 100 UNITS/ML 10 UNITS SUB-Q (20:28)
[2024-11-01 20:46] LABS: Glucose Point of Care 76 mg/dl (65-105)
[2024-11-02] VITALS (11 sets, daily range): BP systolic 100–115; BP diastolic 46–65; PULSE 87–105; RESP 18–20; TEMP 36.2–37.1; O2SAT 93–100
[2024-11-02 05:48] LABS: Hematocrit 29.3 % (37.0-47.0); Hemoglobin 8.6 g/dL (12.0-15.0); Mean Corpuscular HGB Conc 29.4 g/dl (32-36); Mean Corpuscular Hemoglobin 28.6 pg (26-34); Mean Corpuscular Volume 97.3 fl (80-100); Mean Platelet Volume 11.2 fl (7.4-10.4); Platelet Count Result 179 k/mm3 (150-375); Red Blood Count 3.01 M/mm3 (4.2-5.4); Red Cell Distribution Width 16.7 % (11.5-14.5); White Blood Count 6.5 K/mm3 (4.5-10.0)
[2024-11-02 06:01] LABS: Alanine Aminotransferase 15 U/L (6-35); Albumin Level 2.7 g/dL (3.5-5.1); Alkaline Phosphatase 144 U/L (38-126); Anion Gap 5 mmol/L (4-12); Aspartate Amino Transferase 18 U/L (14-36); Bilirubin,Total 0.3 mg/dL (0.2-1.3); Blood Urea Nitrogen 48 mg/dL (7-17); Calcium 8.3 mg/dL (8.4-10.2); Carbon Dioxide 29 mmol/L (22-30); Chloride 107 mmol/L (98-107); Estimated CRCL calculation 56 ml/min; Estimated Glomerular Filt Rate 42; Glucose 130 mg/dL (65-110); Lactate Dehydrogenase 178 U/L (120-246); Potassium 4.3 mmol/L (3.4-5.0); Sodium 141 mmol/L (137-145)
[2024-11-02] MEDS: GABAPENTIN 400 MG CAPSULE BY MOUTH ×2 (06:30→16:56)
[2024-11-02 07:46] LABS: Glucose Point of Care 147 mg/dl (65-105)
[2024-11-02] MEDS: EZETIMIBE 10 MG TABLET PO (09:33)
[2024-11-02] MEDS: ATORVASTATIN 40 MG TABLET 80 MG PO (09:33)
[2024-11-02] MEDS: POLYSACCHARIDE IRON COMPLEX 150 MG CAPSULE PO (09:33)
[2024-11-02] MEDS: FUROSEMIDE INJ 40 MG/4 ML VIAL IV PUSH ×2 (09:33→16:56)
[2024-11-02] MEDS: CEFDINIR 300 MG CAPSULE PO ×2 (09:34→20:22)
[2024-11-02] MEDS: BENZONATATE 100 MG CAPSULE 200 MG PO ×3 (09:34→16:56)
[2024-11-02] MEDS: CYCLOBENZAPRINE HCL 10 MG TABLET PO ×3 (09:34→16:56)
[2024-11-02] MEDS: PANTOPRAZOLE 40 MG TABLET PO (09:34)
[2024-11-02] MEDS: CELECOXIB 200 MG CAPSULE PO ×2 (09:34→16:56)
[2024-11-02] MEDS: ASPIRIN 81 MG ENTERIC TABLET PO (09:34)
[2024-11-02] MEDS: INSULIN GLARGINE (*BKC) 100 UNITS/ML 46 UNITS SUB-Q (09:35)
[2024-11-02] MEDS: INSULIN ASPART (*BKC) 100 UNITS/ML 8 UNITS SUB-Q ×2 (09:35→11:49)
--- NOTE | 2024-11-02 09:55 | PM.IMPN ---
Progress Note: A&P Assessment and Plan (1) Acute exacerbation of CHF (congestive heart failure): Qualifiers: Heart failure type: unspecified Qualified Code(s): I50.9 - Heart failure, unspecified Code(s): I50.9 - Heart failure, unspecified Status: Inactive Assessment and Plan: Will continue with IV Lasix. Monitor I's and O's. Cardiology consult noted (2) Pneumonia: Qualifiers: Laterality: unspecified laterality Lung location: unspecified part of lung Pneumonia type: due to unspecified organism Qualified Code(s): J18.9 - Pneumonia, unspecified organism Code(s): J18.9 - Pneumonia, unspecified organism Status: Inactive Assessment and Plan: Continue with IV Levaquin. Repeat chest x-ray in the morning (3) Acute non-ST elevation myocardial infarction (NSTEMI): Code(s): I21.4 - Non-ST elevation (NSTEMI) myocardial infarction Status: Inactive Assessment and Plan: Cardiology consult noted. Current treatment. trend troponin Plan Acute on chronic hypoxemic respiratory From CHF and pneumonia CT showed bilateral pleural effusion with atelectasis and focal pneumonia Currently on 4 L oxygen, baseline is 2 L oxygen. Continue Lasix 40 mg IV b.i.d. and levofloxacin Monitor. 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 CHF exacerbation No echo on file does unable to specify Patient presented with shortness of breath, leg edema orthopnea. He has a CT chest showed a urine effusion bilaterally atelectasis. Continue lasix 40 IV b.i.d. Cardiology consulted. Pneumonia Resolved CT chest showed a right bundle Blood and sputum culture ordered MRSA pending DC Levaquin Follow-up closely. UTI Started on cefdinir 300 mg p.o. q.d. Reviewed urine culture which shows Klebsiella pneumoniae Anemia Hemoglobin is 8.6 GI consulted outpatient follow-up for endoscopy and colonoscopy Iron panel on FOBT pending. Monitor H and H Type 2 diabetes Blood sugar not on target Will add Lantus 10 units in the night and correctional insulin Continue 46U QD Continue home Lantus Humalog insulin. Sliding scale insulin with Accu-Cheks. Chronic Garcia for urinary incontinence Discussed voiding trial but patient refuses. Continue Garcia per patient's preference History of stroke Continue aspirin and Lipitor No residual weakness Afib on Metoprolol and DC heparin infusion Xarelto 15 mg PO QD cardiology consulted DVT prophylaxis on heparin infusion. 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 Xarelto on hold. Review of Systems Review of Systems: All other systems reviewed and negative except as noted in history above. Exam Narrative: General: alert and comfortable Eyes: EOMI, PERRLA ENNT External ears normal, Neck is supple, no masses, Respiratory systems: Air entry decreased, few rales at bases Cardiovascular S1, S2, normal rhythm, no murmur, rub, or gallop; no thrill or palpable murmurs on palpation. Gastrointestinal: soft, non-tender, and non-distended abdomen with no masses; BS present Skin: no rash, lesions, ulcerations, subcutaneous nodules or induration Musculoskeletal: Bilateral lower extremity edema 3+ Neurologic: Alert and oriented x3, non focal Mental Status Exam: normal affect Objective Data Vital Signs Vital Signs: Vital Signs - 24 hr 11/01/24 12:00 11/01/24 12:00 11/01/24 13:08 Temperature 97.7 F 97.8 F Pulse Rate 95 94 97 Respiratory Rate 20 18 Blood Pressure 98/59 L 105/51 L Pulse Oximetry 94 94 Oxygen Delivery Fraction of Inspired Oxygen 11/01/24 15:54 11/01/24 16:00 11/01/24 16:00 Temperature 97.9 F Pulse Rate 97 98 99 Respiratory Rate 18 Blood Pressure 113/59 L 110/57 L Pulse Oximetry 97 99 Oxygen Delivery Fraction of Inspired Oxygen 11/01/24 20:00 11/01/24 20:00 11/01/24 20:00 Temperature 97.6 F Pulse Rate 99 99 95 Respiratory Rate 18 18 Blood Pressure 118/52 L Pulse Oximetry 95 95 Oxygen Delivery Room Air Fraction of Inspired Oxygen 28 11/01/24 23:46 11/02/24 00:00 11/02/24 03:35 Temperature 97.8 F 97.1 F L Pulse Rate 90 90 89 Respiratory Rate 18 18 Blood Pressure 110/62 110/50 L Pulse Oximetry 95 96 Oxygen Delivery Fraction of Inspired Oxygen 11/02/24 04:00 11/02/24 08:00 Temperature 97.9 F Pulse Rate 87 99 Respiratory Rate 20 Blood Pressure 115/46 L Pulse Oximetry 100 Oxygen Delivery Fraction of Inspired Oxygen Intake/Output Intake/Output: Intake & Output 10/30/24 10/31/24 11/01/24 11/02/24 23:59 23:59 23:59 23:59 Intake Total 3549.5 1910 1220 240 Output Total 2750 2150 2175 2300 Balance 799.5 -240 -955 -2060 Meds/Results Medications: Active Medications Generic Name Dose Route Start Last Admin Trade Name Freq PRN Reason Stop Dose Admin Hydrocodone Bitart/Acetaminophen 1 tab 10/30/24 05:59 11/01/24 20:27 Hydrocodone/Acetaminophen (*Crx) 10-325 Mg Tablet PO 1 tab BID PRN Administration pain Aspirin 81 mg 10/30/24 09:00 11/02/24 09:34 Aspirin 81 Mg Enteric Tablet PO 81 mg QAM SIRISHA Administration Atorvastatin Calcium 80 mg 10/29/24 11:15 11/02/24 09:33 Atorvastatin 40 Mg Tablet PO 80 mg DAILY SIRISHA Administration Benzonatate 200 mg 10/29/24 17:00 11/02/24 09:34 Benzonatate 100 Mg Capsule PO 200 mg TID SIRISHA Administration Cefdinir 300 mg 11/01/24 10:30 11/02/24 09:34 Cefdinir 300 Mg Capsule PO 11/07/24 21:01 300 mg Q12HR SIRISHA Administration Celecoxib 200 mg 10/29/24 17:00 11/02/24 09:34 Celecoxib 200 Mg Capsule PO 200 mg BIDWM SIRISHA Administration Cyclobenzaprine HCl 10 mg 10/30/24 09:00 11/02/24 09:34 Cyclobenzaprine Hcl 10 Mg Tablet PO 10 mg TID SIRISHA Administration Dextrose 12.5 gm 10/31/24 16:56 Dextrose 50% 25 Gm/50 Ml Syringe IV PUSH PRN PRN Hypoglycemia Protocol Docusate Sodium 100 mg 10/29/24 11:10 Docusate Sodium 100 Mg Capsule PO BID PRN constipation Ezetimibe 10 mg 10/29/24 11:20 11/02/24 09:33 Ezetimibe 10 Mg Tablet PO 10 mg DAILY SIRISHA Administration Furosemide 40 mg 10/29/24 17:10 11/02/24 09:33 Furosemide Inj 40 Mg/4 Ml Vial IV PUSH 40 mg BID SIRISHA Administration Gabapentin 400 mg 10/29/24 14:00 11/02/24 06:30 Gabapentin 400 Mg Capsule BY MOUTH 400 mg 0700,1400 SIRISHA Administration Gabapentin 1,200 mg 10/29/24 21:00 11/01/24 20:27 Gabapentin 400 Mg Capsule BY MOUTH 1,200 mg QHS SIRISHA Administration Glucagon 1 mg 10/31/24 16:56 Glucagon For Inj 1 Mg Vial IM PRN PRN Hypoglycemia Protocol Glucose 15 gm 10/31/24 16:56 Glucose Oral Gel 15 Gm Of Glucse In 37.5 Gm Tube PO PRN PRN Hypoglycemia Protocol Dextrose 1,000 mls @ 100 mls/hr 10/31/24 16:56 Dextrose 5% 1,000 Ml IVPB PRN PRN Hypoglycemia Protocol Insulin Aspart 8 units 10/29/24 12:00 11/02/24 09:35 Insulin Aspart (*Bkc) 100 Units/Ml SUB-Q 8 units TIDWM SIRISHA Administration Insulin Aspart 2 - 5 units 10/31/24 17:00 11/02/24 09:35 Insulin Aspart (*Bkc) 100 Units/Ml SUB-Q Not Given TIDWM [facility] Protocol Insulin Glargine 46 units 10/30/24 09:00 11/02/24 09:35 Insulin Glargine (*Bkc) 100 Units/Ml SUB-Q 46 units DAILY SIRISHA Administration Insulin Glargine 10 units 10/31/24 21:00 11/01/24 20:28 Insulin Glargine (*Bkc) 100 Units/Ml SUB-Q 10 units HS SIRISHA Administration Metoprolol Succinate 25 mg 10/29/24 11:25 11/01/24 08:19 Metoprolol Succinate Ext Rel 25 Mg Tabcr PO Not Given DAILY [facility] Ondansetron HCl 4 mg 10/30/24 12:57 Ondansetron Inj 4 Mg/2 Ml Vial IV PUSH Q6H PRN Nausea And Vomiting Pantoprazole Sodium 40 mg 10/30/24 09:00 11/02/24 09:34 Pantoprazole 40 Mg Tablet PO 40 mg QAM SIRISHA Administration Polysaccharide Iron Complex 150 mg 10/31/24 08:00 11/02/24 09:33 Polysaccharide Iron Complex 150 Mg Capsule PO 150 mg DAILY@0800 SIRISHA Administration Rivaroxaban 15 mg 10/31/24 18:00 10/31/24 17:16 Rivaroxaban 15 Mg Tablet PO 15 mg EVENING SIRISHA Administration Radiology Results: ITS Impressions Chest X-Ray 11/01/24 14:12 IMPRESSION: 1. Increased opacity in the left mid and lower lung zone consistent with increasing moderate-sized pleural effusion, atelectasis, pneumonia or some combination thereof. Labs Labs: Laboratory Results - last 24 hr 11/01/24 11/01/24 11/01/24 11:37 16:12 20:33 WBC RBC Hgb Hct MCV MCH MCHC RDW Plt Count MPV Sodium Potassium Chloride Carbon Dioxide Anion Gap BUN Creatinine Estim Creat Clear Calc Estimated GFR Glucose POC Capillary Glucose 83 108 H 76 Calcium Total Bilirubin AST ALT Alkaline Phosphatase Lactate Dehydrogenase Total Protein Albumin 11/02/24 11/02/24 05:31 07:36 WBC 6.5 RBC 3.01 L Hgb 8.6 L Hct 29.3 L MCV 97.3 MCH 28.6 MCHC 29.4 L RDW 16.7 H Plt Count 179 MPV 11.2 H Sodium 141 Potassium 4.3 Chloride 107 Carbon Dioxide 29 Anion Gap 5 BUN 48 H D Creatinine 1.34 H Estim Creat Clear Calc 56 Estimated GFR 42 L Glucose 130 H POC Capillary Glucose 147 H Calcium 8.3 L Total Bilirubin 0.3 AST 18 ALT 15 Alkaline Phosphatase 144 H Lactate Dehydrogenase 178 Total Protein 6.0 L Albumin 2.7 L Hospitalist MIPS Advance Care Plan I have confirmed that the patient's Advanced Care Plan is present, code status is documented, or surrogate decision maker is listed in patient medical record.: Yes Medication Reconciliation I have utilized all available resources to obtain, update and review the patients current medications (includes all prescriptions, OTC, herbals, cannabis, and nutritional supplements).: Yes
--- NOTE | 2024-11-02 10:10 | P.PNCA_ITS ---
Progress Note: A&P Assessment and Plan (1) CHF (congestive heart failure): Code(s): I50.9 - Heart failure, unspecified Status: Acute Plan 1. Acute on chronic heart failure with reduced LVEF. Last LVEF 45% per [facility] notes. Echocardiogram this admission shows LVEF 25-30%. 2. Elevated troponins. Troponin elevation likely due to demand ischemia, unlikely ACS. 3. Acute on chronic hypoxic respiratory failure 4. Pneumonia 5. 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 Has been medically managed. 6. Paroxysmal atrial fibrillation 7. Diabetes mellitus 8. History of seizure disorder 9. PVD 10. History of PE 11. CKD 12. Medication noncompliance. 13. Anemia PLAN -Continue IV Lasix 40mg BID. Please monitor strict I/Os. Will give a one time dose of Metolazone today. -Will resume Metoprolol as blood pressures have improved. Unable to advance heart failure GDMT at this time to avoid hypotension. -Continue ASA, Atorvastatin, Zetia for CAD. -Continue Xarelto 15mg once daily for stroke risk reduction for AFIB; currently on hold for possible thoracentesis. Primary home appliance installer is Dr. Rose Conn at [facility], last visit was in July 2024. Patient to follow up with her primary home appliance installer after hospital discharge. Recommendations and plan discussed with Hospitalist. Subjective Date/time seen: 11/02/24 10:10 Interval history: Reason for visit: CHF HPI: We are consulted for CHF, elevated troponin. This is a 48 year old female who presented to [place] with shortness of breath and cough for the past month. Apparently was recently hospitalized at [facility] for similar symptoms. On 2L of O2 at home. Workup at [place] shows troponins of 755, 700. Troponin here 0.373. NT pro BNP of 10,650. Chest CTA with bilateral pleural effusions, possible pneumonia. EKG with sinus rhythm, LVH. No prior echocardiogram in our system. Upon my evaluation, patient is quite sleepy. Reports improvement in her shortness of breath. No chest pain. Personally reviewed [facility] records and noted as below: Has history of seizure disorder, CHF, DM, PVD, history of PE, PAF, CKD, medication noncompliance. Has known diffuse MVCAD, which was discovered on [facility] 2021, not a candidate for bypass surgery due to unsuitable anatomy. Admitted to [facility] in September for DKA, NSTEMI, flu +. Was intubated from 09/15 to 09/22, Workup of altered mental status negative, including brain MRI, EEG. 09/13 blood cultures positive for MSSA bacteremia. DEMI negative for valvular heart disease. NSTEMI thought to be due to demand ischemia. LVEF noted to be 45%. Primary home appliance installer is Dr. Rose Conn at [facility], last visit was in July 2024. Date of service 10/31: No chest pain today. Shortness of breath improving. Still has lower extremity swellings. Continues to have paroxysmal nocturnal dyspnea and orthopnea. Date of service 11/01: Still feels like she gets winded at times. Still with lower extremity edema. Date of service 11/02: Still with shortness of breath, cough; feels like it may be slightly better. Lower extremity edema improving. Review of Systems Cardiovascular: Cardiovascular: Reports as per HPI Exam Const: General: no acute distress HENMT: Mouth: Yes moist mucous membranes Eyes: General: appearance normal, both eyes and all related structures Sclera: sclerae normal Resp: Effort & Inspection: normal respiratory effort Auscultation: diminished lung sounds Cardio: Rate: regular rate Rhythm: regular rhythm Heart sounds: no murmurs Other: + Bilateral lower extremity edema; LOUIE w raps in place Skin: General skin exam: normal color Neuro: Speech: normal speech Psych: Mental Status: mental status grossly normal Affect: normal affect Objective Data Vital Signs Vital Signs: Vital Signs - 24 hr 11/01/24 12:00 11/01/24 12:00 11/01/24 13:08 Temperature 36.5 C 36.6 C Pulse Rate 95 94 97 Respiratory Rate 20 18 Blood Pressure 98/59 L 105/51 L Pulse Oximetry 94 94 Oxygen Delivery Fraction of Inspired Oxygen 11/01/24 15:54 11/01/24 16:00 11/01/24 16:00 Temperature 36.6 C Pulse Rate 97 98 99 Respiratory Rate 18 Blood Pressure 113/59 L 110/57 L Pulse Oximetry 97 99 Oxygen Delivery Fraction of Inspired Oxygen 11/01/24 20:00 11/01/24 20:00 11/01/24 20:00 Temperature 36.4 C Pulse Rate 99 99 95 Respiratory Rate 18 18 Blood Pressure 118/52 L Pulse Oximetry 95 95 Oxygen Delivery Room Air Fraction of Inspired Oxygen 28 11/01/24 23:46 11/02/24 00:00 11/02/24 03:35 Temperature 36.6 C 36.2 C L Pulse Rate 90 90 89 Respiratory Rate 18 18 Blood Pressure 110/62 110/50 L Pulse Oximetry 95 96 Oxygen Delivery Fraction of Inspired Oxygen 11/02/24 04:00 11/02/24 08:00 Temperature 36.6 C Pulse Rate 87 99 Respiratory Rate 20 Blood Pressure 115/46 L Pulse Oximetry 100 Oxygen Delivery Fraction of Inspired Oxygen Intake/Output Intake/Output: Intake & Output 10/30/24 10/31/24 11/01/24 11/02/24 23:59 23:59 23:59 23:59 Intake Total 3549.5 1910 1220 240 Output Total 2750 2150 2175 2300 Balance 799.5 -240 -955 -2060 Meds/Results Medications: Active Medications Generic Name Dose Route Start Last Admin Trade Name Freq PRN Reason Stop Dose Admin Hydrocodone Bitart/Acetaminophen 1 tab 10/30/24 05:59 11/01/24 20:27 Hydrocodone/Acetaminophen (*Crx) 10-325 Mg Tablet PO 1 tab BID PRN Administration pain Aspirin 81 mg 10/30/24 09:00 11/02/24 09:34 Aspirin 81 Mg Enteric Tablet PO 81 mg QAM SIRISHA Administration Atorvastatin Calcium 80 mg 10/29/24 11:15 11/02/24 09:33 Atorvastatin 40 Mg Tablet PO 80 mg DAILY SIRISHA Administration Benzonatate 200 mg 10/29/24 17:00 11/02/24 09:34 Benzonatate 100 Mg Capsule PO 200 mg TID SIRISHA Administration Cefdinir 300 mg 11/01/24 10:30 11/02/24 09:34 Cefdinir 300 Mg Capsule PO 11/07/24 21:01 300 mg Q12HR SIRISHA Administration Celecoxib 200 mg 10/29/24 17:00 11/02/24 09:34 Celecoxib 200 Mg Capsule PO 200 mg BIDWM SIRISHA Administration Cyclobenzaprine HCl 10 mg 10/30/24 09:00 11/02/24 09:34 Cyclobenzaprine Hcl 10 Mg Tablet PO 10 mg TID SIRISHA Administration Dextrose 12.5 gm 10/31/24 16:56 Dextrose 50% 25 Gm/50 Ml Syringe IV PUSH PRN PRN Hypoglycemia Protocol Docusate Sodium 100 mg 10/29/24 11:10 Docusate Sodium 100 Mg Capsule PO BID PRN constipation Ezetimibe 10 mg 10/29/24 11:20 11/02/24 09:33 Ezetimibe 10 Mg Tablet PO 10 mg DAILY SIRISHA Administration Furosemide 40 mg 10/29/24 17:10 11/02/24 09:33 Furosemide Inj 40 Mg/4 Ml Vial IV PUSH 40 mg BID SIRISHA Administration Gabapentin 400 mg 10/29/24 14:00 11/02/24 06:30 Gabapentin 400 Mg Capsule BY MOUTH 400 mg 0700,1400 SIRISHA Administration Gabapentin 1,200 mg 10/29/24 21:00 11/01/24 20:27 Gabapentin 400 Mg Capsule BY MOUTH 1,200 mg QHS SIRISHA Administration Glucagon 1 mg 10/31/24 16:56 Glucagon For Inj 1 Mg Vial IM PRN PRN Hypoglycemia Protocol Glucose 15 gm 10/31/24 16:56 Glucose Oral Gel 15 Gm Of Glucse In 37.5 Gm Tube PO PRN PRN Hypoglycemia Protocol Dextrose 1,000 mls @ 100 mls/hr 10/31/24 16:56 Dextrose 5% 1,000 Ml IVPB PRN PRN Hypoglycemia Protocol Insulin Aspart 8 units 10/29/24 12:00 11/02/24 09:35 Insulin Aspart (*Bkc) 100 Units/Ml SUB-Q 8 units TIDWM SIRISHA Administration Insulin Aspart 2 - 5 units 10/31/24 17:00 11/02/24 09:35 Insulin Aspart (*Bkc) 100 Units/Ml SUB-Q Not Given TIDWM [facility] Protocol Insulin Glargine 46 units 10/30/24 09:00 11/02/24 09:35 Insulin Glargine (*Bkc) 100 Units/Ml SUB-Q 46 units DAILY SIRISHA Administration Insulin Glargine 10 units 10/31/24 21:00 11/01/24 20:28 Insulin Glargine (*Bkc) 100 Units/Ml SUB-Q 10 units HS SIRISHA Administration Metolazone 5 mg 11/02/24 10:10 Metolazone 5 Mg Tablet PO 11/02/24 10:11 ONCE ONE Metoprolol Succinate 25 mg 10/29/24 11:25 11/01/24 08:19 Metoprolol Succinate Ext Rel 25 Mg Tabcr PO Not Given DAILY [facility] Ondansetron HCl 4 mg 10/30/24 12:57 Ondansetron Inj 4 Mg/2 Ml Vial IV PUSH Q6H PRN Nausea And Vomiting Pantoprazole Sodium 40 mg 10/30/24 09:00 11/02/24 09:34 Pantoprazole 40 Mg Tablet PO 40 mg QAM SIRISHA Administration Polysaccharide Iron Complex 150 mg 10/31/24 08:00 11/02/24 09:33 Polysaccharide Iron Complex 150 Mg Capsule PO 150 mg DAILY@0800 [facility] Administration Rivaroxaban 15 mg 10/31/24 18:00 10/31/24 17:16 Rivaroxaban 15 Mg Tablet PO 15 mg EVENING SIRISHA Administration Radiology Results: ITS Impressions Chest X-Ray 11/01/24 14:12 IMPRESSION: 1. Increased opacity in the left mid and lower lung zone consistent with increasing moderate-sized pleural effusion, atelectasis, pneumonia or some combination thereof. Labs Labs: Laboratory Results - last 24 hr 11/01/24 11/01/24 11/01/24 11:37 16:12 20:33 WBC RBC Hgb Hct MCV MCH MCHC RDW Plt Count MPV Sodium Potassium Chloride Carbon Dioxide Anion Gap BUN Creatinine Estim Creat Clear Calc Estimated GFR Glucose POC Capillary Glucose 83 108 H 76 Calcium Total Bilirubin AST ALT Alkaline Phosphatase Lactate Dehydrogenase Total Protein Albumin 11/02/24 11/02/24 05:31 07:36 WBC 6.5 RBC 3.01 L Hgb 8.6 L Hct 29.3 L MCV 97.3 MCH 28.6 MCHC 29.4 L RDW 16.7 H Plt Count 179 MPV 11.2 H Sodium 141 Potassium 4.3 Chloride 107 Carbon Dioxide 29 Anion Gap 5 BUN 48 H D Creatinine 1.34 H Estim Creat Clear Calc 56 Estimated GFR 42 L Glucose 130 H POC Capillary Glucose 147 H Calcium 8.3 L Total Bilirubin 0.3 AST 18 ALT 15 Alkaline Phosphatase 144 H Lactate Dehydrogenase 178 Total Protein 6.0 L Albumin 2.7 L
[2024-11-02] MEDS: METOPROLOL SUCCINATE EXT REL 25 MG TABCR PO (10:30)
[2024-11-02 11:37] LABS: Glucose Point of Care 128 mg/dl (65-105)
[2024-11-02] MEDS: metOLazone 5 MG TABLET PO (12:37)
[2024-11-02 16:34] LABS: Glucose Point of Care 49 mg/dl (65-105)
[2024-11-02 16:40] LABS: Glucose Point of Care 77 mg/dl (65-105)
[2024-11-02] MEDS: HYDROcodone/acetaminophen (*CRX) 10-325 MG TABLET 1 TAB PO (20:22)
[2024-11-02] MEDS: GABAPENTIN 400 MG CAPSULE 1200 MG BY MOUTH (20:23)
[2024-11-02 21:11] LABS: Glucose Point of Care 143 mg/dl (65-105)
[2024-11-02 23:47] LABS: Glucose Point of Care 158 mg/dl (65-105)
[2024-11-03] VITALS (13 sets, daily range): BP systolic 81–117; BP diastolic 50–70; PULSE 90–101; RESP 14–20; TEMP 35.7–36.8; O2SAT 93–100
[2024-11-03 01:58] LABS: IFOB Positive Control Positive; Immunochemical Fecal Occult Bl Negative (N)
[2024-11-03 06:01] LABS: Hematocrit 28.4 % (37.0-47.0); Hemoglobin 8.4 g/dL (12.0-15.0); Mean Corpuscular HGB Conc 29.6 g/dl (32-36); Mean Corpuscular Hemoglobin 28.9 pg (26-34); Mean Corpuscular Volume 97.6 fl (80-100); Mean Platelet Volume 11.3 fl (7.4-10.4); Platelet Count Result 168 k/mm3 (150-375); Red Blood Count 2.91 M/mm3 (4.2-5.4); Red Cell Distribution Width 16.5 % (11.5-14.5); White Blood Count 7.4 K/mm3 (4.5-10.0)
[2024-11-03 06:16] LABS: Alanine Aminotransferase 14 U/L (6-35); Albumin Level 2.7 g/dL (3.5-5.1); Alkaline Phosphatase 136 U/L (38-126); Anion Gap 4 mmol/L (4-12); Aspartate Amino Transferase 18 U/L (14-36); Bilirubin,Total 0.3 mg/dL (0.2-1.3); Blood Urea Nitrogen 45 mg/dL (7-17); Calcium 8.2 mg/dL (8.4-10.2); Carbon Dioxide 29 mmol/L (22-30); Chloride 106 mmol/L (98-107); Estimated CRCL calculation 59 ml/min; Estimated Glomerular Filt Rate 44; Glucose 99 mg/dL (65-110); Sodium 139 mmol/L (137-145)
[2024-11-03] MEDS: GABAPENTIN 400 MG CAPSULE BY MOUTH ×2 (06:17→13:20)
[2024-11-03 07:34] LABS: Glucose Point of Care 103 mg/dl (65-105)
[2024-11-03 08:45] LABS: INR 1.1; Prothrombin Time 14.3 Seconds (11.1-14.7)
[2024-11-03 08:46] LABS: Partial Thromboplastin Time 27.1 Seconds (22.3-36.8)
[2024-11-03] MEDS: CELECOXIB 200 MG CAPSULE PO ×2 (09:00→17:35)
[2024-11-03] MEDS: BENZONATATE 100 MG CAPSULE 200 MG PO ×3 (09:00→17:35)
[2024-11-03] MEDS: EZETIMIBE 10 MG TABLET PO (09:00)
[2024-11-03] MEDS: PANTOPRAZOLE 40 MG TABLET PO (09:00)
[2024-11-03] MEDS: CEFDINIR 300 MG CAPSULE PO ×2 (09:00→20:44)
[2024-11-03] MEDS: ATORVASTATIN 40 MG TABLET 80 MG PO (09:00)
[2024-11-03] MEDS: CYCLOBENZAPRINE HCL 10 MG TABLET PO ×3 (09:01→17:35)
[2024-11-03] MEDS: METOPROLOL SUCCINATE EXT REL 25 MG TABCR PO (09:01)
[2024-11-03] MEDS: POLYSACCHARIDE IRON COMPLEX 150 MG CAPSULE PO (09:02)
--- NOTE | 2024-11-03 09:54 | PM.PNCARD ---
Progress Note: A&P Assessment and Plan (1) CHF (congestive heart failure): Code(s): I50.9 - Heart failure, unspecified Status: Acute (2) CAD (coronary artery disease): Code(s): I25.10 - Atherosclerotic heart disease of [place] coronary artery without angina pectoris Status: Acute (3) Paroxysmal A-fib: Code(s): I48.0 - Paroxysmal atrial fibrillation Status: Acute Plan 48-year-old woman with multivessel CAD (not amenable for bypass or PCI), chronic systolic heart failure (LVEF 45%), paroxysmal atrial fibrillation (on Xarelto), CKD stage IIIA, and diabetes presented with shortness of breath cough. Acute on chronic systolic heart failure -agree with thoracentesis -fluid restriction to 1500 cc per day -Lasix 40 mg IV b.i.d. and most likely transition Bumex 1 mg p.o. b.i.d. tomorrow -it appears that she may be taking in excessive amounts of fluid in it should be room for stent she should limit her fluid restriction to 1500 cc per day -continue metoprolol succinate 25 mg p.o. daily and will add farxiga 10mg PO daily -unable to tolerate further guideline directed medical therapy at this time -previously was on half the dose Entresto on home hopefully can be readded during outpatient evaluation Multivessel CAD -continue metoprolol succinate 25 p.o. daily and aspirin p.o. daily Paroxysmal atrial fibrillation -Xarelto dosing should be 15 mg with dinner Hyperlipidemia -continue atorvastatin 80 every evening and ezetimibe 10 mg p.o. daily Subjective Date/time seen: 11/03/24 09:54 Interval history: Shortness of breath has significantly improved. No further orthopnea. Lower extremity swelling almost resolved. Review of Systems Cardiovascular: Cardiovascular: Reports as per HPI Respiratory: Respiratory: Reports as per HPI Exam HENMT: Mouth: Yes moist mucous membranes Eyes: EOM: EOMs intact bilaterally Neck: Neck: no JVD Resp: Effort & Inspection: normal respiratory effort Auscultation: crackles and wheezes Cardio: Rate: regular rate Rhythm: regular rhythm GI: GI Palp: Yes Soft to palpation Neuro: Speech: normal speech Extrem: General: pedal edema Objective Data Vital Signs Vital Signs: Vital Signs - 24 hr 11/02/24 10:30 11/02/24 12:00 11/02/24 12:00 Temperature 36.8 C Pulse Rate 98 97 103 H Respiratory Rate 18 Blood Pressure 100/65 Pulse Oximetry 93 Oxygen Delivery Fraction of Inspired Oxygen 11/02/24 16:00 11/02/24 16:00 11/02/24 20:00 Temperature 36.9 C 37.1 C Pulse Rate 101 H 99 102 H Respiratory Rate 20 20 Blood Pressure 103/53 L 110/55 L Pulse Oximetry 97 100 Oxygen Delivery Fraction of Inspired Oxygen 11/02/24 20:02 11/02/24 20:10 11/02/24 23:47 Temperature Pulse Rate 105 H 99 101 H Respiratory Rate 20 20 Blood Pressure Pulse Oximetry 97 96 Oxygen Delivery Room Air Autopap Fraction of Inspired Oxygen 28 11/03/24 00:00 11/03/24 00:02 11/03/24 04:00 Temperature 36.3 C L 36.7 C Pulse Rate 97 100 97 Respiratory Rate 20 20 Blood Pressure 99/51 L 81/53 L Pulse Oximetry 100 94 Oxygen Delivery Fraction of Inspired Oxygen 11/03/24 04:02 11/03/24 05:22 11/03/24 07:50 Temperature 36.0 C L Pulse Rate 94 99 93 Respiratory Rate 18 18 Blood Pressure 117/50 L Pulse Oximetry 96 93 Oxygen Delivery Autopap Fraction of Inspired Oxygen 11/03/24 09:01 Temperature Pulse Rate 101 H Respiratory Rate Blood Pressure Pulse Oximetry Oxygen Delivery Fraction of Inspired Oxygen Intake/Output Intake/Output: Intake & Output 10/31/24 11/01/24 11/02/24 11/03/24 23:59 23:59 23:59 23:59 Intake Total 1910 1220 1270 190 Output Total 7252 5927 2190 850 Balance -240 -955 -3480 -660 Meds/Results Medications: Active Medications Generic Name Dose Route Start Last Admin Trade Name Freq PRN Reason Stop Dose Admin Hydrocodone Bitart/Acetaminophen 1 tab 10/30/24 05:59 11/02/24 20:22 Hydrocodone/Acetaminophen (*Crx) 10-325 Mg Tablet PO 1 tab BID PRN Administration pain Aspirin 81 mg 10/30/24 09:00 11/03/24 07:36 Aspirin 81 Mg Enteric Tablet PO Not Given [facility] Atorvastatin Calcium 80 mg 10/29/24 11:15 11/03/24 09:00 Atorvastatin 40 Mg Tablet PO 80 mg DAILY SIRISHA Administration Benzonatate 200 mg 10/29/24 17:00 11/03/24 09:00 Benzonatate 100 Mg Capsule PO 200 mg TID SIRISHA Administration Cefdinir 300 mg 11/01/24 10:30 11/03/24 09:00 Cefdinir 300 Mg Capsule PO 11/07/24 21:01 300 mg Q12HR SIRISHA Administration Celecoxib 200 mg 10/29/24 17:00 11/03/24 09:00 Celecoxib 200 Mg Capsule PO 200 mg BIDWM SIRISHA Administration Cyclobenzaprine HCl 10 mg 10/30/24 09:00 11/03/24 09:01 Cyclobenzaprine Hcl 10 Mg Tablet PO 10 mg TID SIRISHA Administration Dextrose 12.5 gm 10/31/24 16:56 Dextrose 50% 25 Gm/50 Ml Syringe IV PUSH PRN PRN Hypoglycemia Protocol Docusate Sodium 100 mg 10/29/24 11:10 Docusate Sodium 100 Mg Capsule PO BID PRN constipation Ezetimibe 10 mg 10/29/24 11:20 11/03/24 09:00 Ezetimibe 10 Mg Tablet PO 10 mg DAILY SIRISHA Administration Furosemide 40 mg 10/29/24 17:10 11/03/24 07:57 Furosemide Inj 40 Mg/4 Ml Vial IV PUSH Not Given BID SIRISHA Gabapentin 400 mg 10/29/24 14:00 11/03/24 06:17 Gabapentin 400 Mg Capsule BY MOUTH 400 mg 0700,1400 SIRISHA Administration Gabapentin 1,200 mg 10/29/24 21:00 11/02/24 20:23 Gabapentin 400 Mg Capsule BY MOUTH 1,200 mg QHS SIRISHA Administration Glucagon 1 mg 10/31/24 16:56 Glucagon For Inj 1 Mg Vial IM PRN PRN Hypoglycemia Protocol Glucose 15 gm 10/31/24 16:56 Glucose Oral Gel 15 Gm Of Glucse In 37.5 Gm Tube PO PRN PRN Hypoglycemia Protocol Dextrose 1,000 mls @ 100 mls/hr 10/31/24 16:56 Dextrose 5% 1,000 Ml IVPB PRN PRN Hypoglycemia Protocol Insulin Aspart 8 units 10/29/24 12:00 11/03/24 07:56 Insulin Aspart (*Bkc) 100 Units/Ml SUB-Q Not Given TIDWM ON LICENSE OF [facility] Insulin Aspart 2 - 5 units 10/31/24 17:00 11/03/24 07:56 Insulin Aspart (*Bkc) 100 Units/Ml SUB-Q Not Given TIDWM ON LICENSE OF [facility] Protocol Insulin Glargine 46 units 10/30/24 09:00 11/03/24 07:57 Insulin Glargine (*Bkc) 100 Units/Ml SUB-Q Not Given DAILY ON LICENSE OF [facility] Insulin Glargine 10 units 10/31/24 21:00 11/02/24 20:02 Insulin Glargine (*Bkc) 100 Units/Ml SUB-Q Not Given HS ON LICENSE OF [facility] Metoprolol Succinate 25 mg 11/02/24 10:30 11/03/24 09:01 Metoprolol Succinate Ext Rel 25 Mg Tabcr PO 25 mg DAILY ON LICENSE OF [facility] Administration Ondansetron HCl 4 mg 10/30/24 12:57 Ondansetron Inj 4 Mg/2 Ml Vial IV PUSH Q6H PRN Nausea And Vomiting Pantoprazole Sodium 40 mg 10/30/24 09:00 11/03/24 09:00 Pantoprazole 40 Mg Tablet PO 40 mg QAM ON LICENSE OF [facility] Administration Polysaccharide Iron Complex 150 mg 10/31/24 08:00 11/03/24 09:02 Polysaccharide Iron Complex 150 Mg Capsule PO 150 mg DAILY@0800 ON LICENSE OF [facility] Administration Rivaroxaban 15 mg 10/31/24 18:00 10/31/24 17:16 Rivaroxaban 15 Mg Tablet PO 15 mg EVENING SIRISHA Administration Radiology Results: ITS Impressions Chest X-Ray 11/01/24 14:12 IMPRESSION: 1. Increased opacity in the left mid and lower lung zone consistent with increasing moderate-sized pleural effusion, atelectasis, pneumonia or some combination thereof. Labs Labs: Laboratory Results - last 24 hr 11/02/24 11/02/24 11/02/24 11:30 16:04 16:37 WBC RBC Hgb Hct MCV MCH MCHC RDW Plt Count MPV PT INR APTT Sodium Potassium Chloride Carbon Dioxide Anion Gap BUN Creatinine Estim Creat Clear Calc Estimated GFR Glucose POC Capillary Glucose 128 H 49 L* 77 Calcium Total Bilirubin AST ALT Alkaline Phosphatase Total Protein Albumin Stl Occult Blood (IFOB) 11/02/24 11/02/24 11/02/24 20:16 23:34 23:47 WBC RBC Hgb Hct MCV MCH MCHC RDW Plt Count MPV PT INR APTT Sodium Potassium Chloride Carbon Dioxide Anion Gap BUN Creatinine Estim Creat Clear Calc Estimated GFR Glucose POC Capillary Glucose 143 H 158 H Calcium Total Bilirubin AST ALT Alkaline Phosphatase Total Protein Albumin Stl Occult Blood (IFOB) Negative 11/03/24 11/03/24 11/03/24 05:22 07:24 08:02 WBC 7.4 RBC 2.91 L Hgb 8.4 L Hct 28.4 L MCV 97.6 MCH 28.9 MCHC 29.6 L RDW 16.5 H Plt Count 168 MPV 11.3 H PT 14.3 INR 1.1 APTT 27.1 Sodium 139 Potassium 4.0 Chloride 106 Carbon Dioxide 29 Anion Gap 4 BUN 45 H Creatinine 1.29 H Estim Creat Clear Calc 59 Estimated GFR 44 L Glucose 99 POC Capillary Glucose 103 Calcium 8.2 L Total Bilirubin 0.3 AST 18 ALT 14 Alkaline Phosphatase 136 H Total Protein 6.0 L Albumin 2.7 L Stl Occult Blood (IFOB)
[2024-11-03 11:22] LABS: pH Pleural Fluid > 7.500 (7.210-7.500)
[2024-11-03 11:23] LABS: Glucose Point of Care 80 mg/dl (65-105)
[2024-11-03 12:45] LABS: Appearance Pleural Fluid Hazy (Clear); Color Pleural Fluid Yellow (Colorless); Lymphocytes Pleural Fluid 9 %; Neutrophils Pleural Fluid 52 % (0-25); Nucleated Cell Pleural Fluid 852 /uL (0-1000); Pleural fluid source Pleural fluid; RBC Pleural Fluid < 2000 /uL (0-10000)
[2024-11-03 12:46] LABS: Macrophages Pleural Fluid 18 %; Mesothelial Cells Pleural Flui 9 %; Monocytes Pleural Fluid 10 %; Other Cells Pleural Fluid 2 %
[2024-11-03] MEDS: HYDROcodone/acetaminophen (*CRX) 10-325 MG TABLET 1 TAB PO ×2 (14:35→20:43)
--- NOTE | 2024-11-03 15:51 | PM.IMPN ---
Progress Note: A&P Assessment and Plan (1) Acute exacerbation of CHF (congestive heart failure): Qualifiers: Heart failure type: unspecified Qualified Code(s): I50.9 - Heart failure, unspecified Code(s): I50.9 - Heart failure, unspecified Status: Inactive Assessment and Plan: Will continue with IV Lasix. Monitor I's and O's. Cardiology consult noted (2) Pneumonia: Qualifiers: Laterality: unspecified laterality Lung location: unspecified part of lung Pneumonia type: due to unspecified organism Qualified Code(s): J18.9 - Pneumonia, unspecified organism Code(s): J18.9 - Pneumonia, unspecified organism Status: Inactive Assessment and Plan: Continue with IV Levaquin. Repeat chest x-ray in the morning (3) Acute non-ST elevation myocardial infarction (NSTEMI): Code(s): I21.4 - Non-ST elevation (NSTEMI) myocardial infarction Status: Inactive Assessment and Plan: Cardiology consult noted. Current treatment. trend troponin Plan Bilateral pleural effusion Underwent thoracentesis on 11/03 on left side pleural effusion Drained 1 L Pending pleural fluid analysis Will repeat a chest x-ray tomorrow Acute on chronic hypoxemic respiratory From CHF and pneumonia CT showed bilateral pleural effusion with atelectasis and focal pneumonia Currently on 4 L oxygen, baseline is 2 L oxygen. Continue Lasix 40 mg IV b.i.d. and levofloxacin Monitor. 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 CHF exacerbation No echo on file does unable to specify Patient presented with shortness of breath, leg edema orthopnea. He has a CT chest showed a urine effusion bilaterally atelectasis. Continue lasix 40 IV b.i.d. Cardiology consulted. Pneumonia Resolved CT chest showed a right bundle Blood and sputum culture ordered MRSA pending DC Levaquin Follow-up closely. UTI Started on cefdinir 300 mg p.o. q.d. Reviewed urine culture which shows Klebsiella pneumoniae Anemia Hemoglobin is 8.6 GI consulted outpatient follow-up for endoscopy and colonoscopy Iron panel on FOBT pending. Monitor H and H Type 2 diabetes Blood sugar not on target Will add Lantus 10 units in the night and correctional insulin Continue 46U QD Continue home Lantus Humalog insulin. Sliding scale insulin with Accu-Cheks. Chronic Garcia for urinary incontinence Discussed voiding trial but patient refuses. Continue Garcia per patient's preference History of stroke Continue aspirin and Lipitor No residual weakness Afib on Metoprolol and DC heparin infusion Xarelto 15 mg PO QD cardiology consulted DVT prophylaxis on heparin infusion. Do not resuscitate [facility] power of assistant city attorney, Arnoldo Garcia Subjective Date/time seen: 11/03/24 15:51 Interval history: Patient underwent thoracentesis left side pleural effusion and drained 1 L. pending pleural fluid analysis. Will repeat the chest x-ray tomorrow. Continue hold Xarelto until day after tomorrow. Review of Systems Review of Systems: All other systems reviewed and negative except as noted in history above. Exam Narrative: General: alert and comfortable Eyes: EOMI, PERRLA ENNT External ears normal, Neck is supple, no masses, Respiratory systems: Air entry decreased, few rales at bases Cardiovascular S1, S2, normal rhythm, no murmur, rub, or gallop; no thrill or palpable murmurs on palpation. Gastrointestinal: soft, non-tender, and non-distended abdomen with no masses; BS present Skin: no rash, lesions, ulcerations, subcutaneous nodules or induration Musculoskeletal: Bilateral lower extremity edema 3+ Neurologic: Alert and oriented x3, non focal Mental Status Exam: normal affect Objective Data Vital Signs Vital Signs: Vital Signs - 24 hr 11/02/24 16:00 11/02/24 16:00 11/02/24 20:00 Temperature 98.5 F 98.7 F Pulse Rate 101 H 99 102 H Respiratory Rate 20 20 Blood Pressure 103/53 L 110/55 L Pulse Oximetry 97 100 Oxygen Delivery Fraction of Inspired Oxygen 11/02/24 20:02 11/02/24 20:10 11/02/24 23:47 Temperature Pulse Rate 105 H 99 101 H Respiratory Rate 20 20 Blood Pressure Pulse Oximetry 97 96 Oxygen Delivery Room Air Autopap Fraction of Inspired Oxygen 28 11/03/24 00:00 11/03/24 00:02 11/03/24 04:00 Temperature 97.4 F L 98.1 F Pulse Rate 97 100 97 Respiratory Rate 20 20 Blood Pressure 99/51 L 81/53 L Pulse Oximetry 100 94 Oxygen Delivery Fraction of Inspired Oxygen 11/03/24 04:02 11/03/24 05:22 11/03/24 07:50 Temperature 96.8 F L Pulse Rate 94 99 93 Respiratory Rate 18 18 Blood Pressure 117/50 L Pulse Oximetry 96 93 Oxygen Delivery Autopap Fraction of Inspired Oxygen 11/03/24 08:00 11/03/24 08:00 11/03/24 09:01 Temperature Pulse Rate 94 101 H Respiratory Rate Blood Pressure Pulse Oximetry 97 Oxygen Delivery Room Air Fraction of Inspired Oxygen 11/03/24 11:38 11/03/24 12:00 Temperature 96.2 F L Pulse Rate 95 94 Respiratory Rate 18 Blood Pressure 102/70 Pulse Oximetry 98 Oxygen Delivery Fraction of Inspired Oxygen Intake/Output Intake/Output: Intake & Output 10/31/24 11/01/24 11/02/24 11/03/24 23:59 23:59 23:59 23:59 Intake Total 1910 1220 1270 430 Output Total 2150 2175 4750 1850 [facility] -240 -955 -3480 -1420 Meds/Results Medications: Active Medications Generic Name Dose Route Start Last Admin Trade Name Freq PRN Reason Stop Dose Admin Hydrocodone Bitart/Acetaminophen 1 tab 10/30/24 05:59 11/03/24 14:35 Hydrocodone/Acetaminophen (*Crx) 10-325 Mg Tablet PO 1 tab BID PRN Administration pain Aspirin 81 mg 10/30/24 09:00 11/03/24 07:36 Aspirin 81 Mg Enteric Tablet [facility] Atorvastatin Calcium 80 mg 10/29/24 11:15 11/03/24 09:00 Atorvastatin 40 Mg Tablet PO 80 mg DAILY SIRISHA Administration Benzonatate 200 mg 10/29/24 17:00 11/03/24 12:57 Benzonatate 100 Mg Capsule PO 200 mg TID SIRISHA Administration Cefdinir 300 mg 11/01/24 10:30 11/03/24 09:00 Cefdinir 300 Mg Capsule PO 11/07/24 21:01 300 mg Q12HR SIRISHA Administration Celecoxib 200 mg 10/29/24 17:00 11/03/24 09:00 Celecoxib 200 Mg Capsule PO 200 mg BIDWM SIRISHA Administration Cyclobenzaprine HCl 10 mg 10/30/24 09:00 11/03/24 12:57 Cyclobenzaprine Hcl 10 Mg Tablet PO 10 mg TID SIRISHA Administration Dextrose 12.5 gm 10/31/24 16:56 Dextrose 50% 25 Gm/50 Ml Syringe IV PUSH PRN PRN Hypoglycemia Protocol Docusate Sodium 100 mg 10/29/24 11:10 Docusate Sodium 100 Mg Capsule PO BID PRN constipation Ezetimibe 10 mg 10/29/24 11:20 11/03/24 09:00 Ezetimibe 10 Mg Tablet PO 10 mg DAILY SIRISHA Administration Furosemide 40 mg 10/29/24 17:10 11/03/24 07:57 Furosemide Inj 40 Mg/4 Ml Vial IV PUSH Not Given BID SIRISHA Gabapentin 400 mg 10/29/24 14:00 11/03/24 13:20 Gabapentin 400 Mg Capsule BY MOUTH 400 mg 0700,1400 SIRISHA Administration Gabapentin 1,200 mg 10/29/24 21:00 11/02/24 20:23 Gabapentin 400 Mg Capsule BY MOUTH 1,200 mg QHS SIRISHA Administration Glucagon 1 mg 10/31/24 16:56 Glucagon For Inj 1 Mg Vial IM PRN PRN Hypoglycemia Protocol Glucose 15 gm 10/31/24 16:56 Glucose Oral Gel 15 Gm Of Glucse In 37.5 Gm Tube PO PRN PRN Hypoglycemia Protocol Dextrose 1,000 mls @ 100 mls/hr 10/31/24 16:56 Dextrose 5% 1,000 Ml IVPB PRN PRN Hypoglycemia Protocol Insulin Aspart 8 units 10/29/24 12:00 11/03/24 11:49 Insulin Aspart (*Bkc) 100 Units/Ml SUB-Q Not Given TIDWM [facility] Insulin Aspart 2 - 5 units 10/31/24 17:00 11/03/24 11:38 Insulin Aspart (*Bkc) 100 Units/Ml SUB-Q Not Given TIDWM [facility] Protocol Insulin Glargine 46 units 10/30/24 09:00 11/03/24 07:57 Insulin Glargine (*Bkc) 100 Units/Ml SUB-Q Not Given DAILY [facility] Insulin Glargine 10 units 10/31/24 21:00 11/02/24 20:02 Insulin Glargine (*Bkc) 100 Units/Ml SUB-Q Not Given HS [facility] Metoprolol Succinate 25 mg 11/02/24 10:30 11/03/24 09:01 Metoprolol Succinate Ext Rel 25 Mg Tabcr PO 25 mg DAILY SIRISHA Administration Ondansetron HCl 4 mg 10/30/24 12:57 Ondansetron Inj 4 Mg/2 Ml Vial IV PUSH Q6H PRN Nausea And Vomiting Pantoprazole Sodium 40 mg 10/30/24 09:00 11/03/24 09:00 Pantoprazole 40 Mg Tablet PO 40 mg QAM SIRISHA Administration Polysaccharide Iron Complex 150 mg 10/31/24 08:00 11/03/24 09:02 Polysaccharide Iron Complex 150 Mg Capsule PO 150 mg DAILY@0800 SIRISHA Administration Rivaroxaban 15 mg 10/31/24 18:00 10/31/24 17:16 Rivaroxaban 15 Mg Tablet PO 15 mg EVENING SIRISHA Administration Radiology Results: ITS Impressions Chest X-Ray 11/03/24 10:43 Impression: 1: No pneumothorax identified post procedure. 2: Decreased size of left pleural effusion. 3: Left basilar airspace disease may represent atelectasis or pneumonia. Thoracentesis Ultrasound 11/03/24 11:07 IMPRESSION: 1. Successful ultrasound-guided thoracentesis yielding 1000 mL of yellow fluid. Labs Labs: Laboratory Results - last 24 hr 11/02/24 11/02/24 11/02/24 16:04 16:37 20:16 WBC RBC Hgb Hct MCV MCH MCHC RDW Plt Count MPV PT INR APTT Sodium Potassium Chloride Carbon Dioxide Anion Gap BUN Creatinine Estim Creat Clear Calc Estimated GFR Glucose POC Capillary Glucose 49 L* 77 143 H Calcium Total Bilirubin AST ALT Alkaline Phosphatase Total Protein Albumin Pleural Fluid Source Pleural Color Pleural Appearance Pleural pH Pleural RBC Pleural Nuc Cells Pleural Neutrophils Pleural Lymphocytes Pleural Monocytes Pleural Macrophages Pleural Mesothelial Pleural Other Cells Stl Occult Blood (IFOB) 11/02/24 11/02/24 11/03/24 23:34 23:47 05:22 WBC 7.4 RBC 2.91 L Hgb 8.4 L Hct 28.4 L MCV 97.6 MCH 28.9 MCHC 29.6 L RDW 16.5 H Plt Count 168 MPV 11.3 H PT INR APTT Sodium 139 Potassium 4.0 Chloride 106 Carbon Dioxide 29 Anion Gap 4 BUN 45 H Creatinine 1.29 H Estim Creat Clear Calc 59 Estimated GFR 44 L Glucose 99 POC Capillary Glucose 158 H Calcium 8.2 L Total Bilirubin 0.3 AST 18 ALT 14 Alkaline Phosphatase 136 H Total Protein 6.0 L Albumin 2.7 L Pleural Fluid Source Pleural Color Pleural Appearance Pleural pH Pleural RBC Pleural Nuc Cells Pleural Neutrophils Pleural Lymphocytes Pleural Monocytes Pleural Macrophages Pleural Mesothelial Pleural Other Cells Stl Occult Blood (IFOB) Negative 11/03/24 11/03/24 11/03/24 07:24 08:02 10:18 WBC RBC Hgb Hct MCV MCH MCHC RDW Plt Count MPV PT 14.3 INR 1.1 APTT 27.1 Sodium Potassium Chloride Carbon Dioxide Anion Gap BUN Creatinine Estim Creat Clear Calc Estimated GFR Glucose POC Capillary Glucose 103 Calcium Total Bilirubin AST ALT Alkaline Phosphatase Total Protein Albumin Pleural Fluid Source Pleural fluid Pleural Color Yellow Pleural Appearance Hazy Pleural pH > 7.500 H Pleural RBC < 2000 Pleural Nuc Cells 852 Pleural Neutrophils 52 H Pleural Lymphocytes 9 Pleural Monocytes 10 Pleural Macrophages 18 Pleural Mesothelial 9 Pleural Other Cells 2 Stl Occult Blood (IFOB) 11/03/24 11:21 WBC RBC Hgb Hct MCV MCH MCHC RDW Plt Count MPV PT INR APTT Sodium Potassium Chloride Carbon Dioxide Anion Gap BUN Creatinine Estim Creat Clear Calc Estimated GFR Glucose POC Capillary Glucose 80 Calcium Total Bilirubin AST ALT Alkaline Phosphatase Total Protein Albumin Pleural Fluid Source Pleural Color Pleural Appearance Pleural pH Pleural RBC Pleural Nuc Cells Pleural Neutrophils Pleural Lymphocytes Pleural Monocytes Pleural Macrophages Pleural Mesothelial Pleural Other Cells Stl Occult Blood (IFOB) Hospitalist MIPS Advance Care Plan I have confirmed that the patient's Advanced Care Plan is present, code status is documented, or surrogate decision maker is listed in patient medical record.: Yes Medication Reconciliation I have utilized all available resources to obtain, update and review the patients current medications (includes all prescriptions, OTC, herbals, cannabis, and nutritional supplements).: Yes
[2024-11-03 16:30] LABS: Glucose Point of Care 167 mg/dl (65-105)
[2024-11-03] MEDS: FUROSEMIDE INJ 40 MG/4 ML VIAL IV PUSH (17:34)
[2024-11-03] MEDS: INSULIN ASPART (*BKC) 100 UNITS/ML 8 UNITS SUB-Q (17:35)
[2024-11-03 20:36] LABS: Glucose Point of Care 192 mg/dl (65-105)
[2024-11-03] MEDS: GABAPENTIN 400 MG CAPSULE 1200 MG BY MOUTH (20:44)
[2024-11-03] MEDS: INSULIN GLARGINE (*BKC) 100 UNITS/ML 10 UNITS SUB-Q (20:45)
[2024-11-04] VITALS (12 sets, daily range): BP systolic 80–110; BP diastolic 50–67; PULSE 86–97; RESP 12–20; TEMP 35.6–36.7; O2SAT 90–100
[2024-11-04] MEDS: GABAPENTIN 400 MG CAPSULE BY MOUTH ×2 (06:30→13:08)
[2024-11-04 07:45] LABS: Glucose Point of Care 223 mg/dl (65-105)
--- NOTE | 2024-11-04 08:45 | PM.IMPN ---
Progress Note: A&P Assessment and Plan (1) Acute exacerbation of CHF (congestive heart failure): Qualifiers: Heart failure type: unspecified Qualified Code(s): I50.9 - Heart failure, unspecified Code(s): I50.9 - Heart failure, unspecified Status: Inactive Assessment and Plan: Will continue with IV Lasix. Monitor I's and O's. Cardiology consult noted (2) Pneumonia: Qualifiers: Laterality: unspecified laterality Lung location: unspecified part of lung Pneumonia type: due to unspecified organism Qualified Code(s): J18.9 - Pneumonia, unspecified organism Code(s): J18.9 - Pneumonia, unspecified organism Status: Inactive Assessment and Plan: Continue with IV Levaquin. Repeat chest x-ray in the morning (3) Acute non-ST elevation myocardial infarction (NSTEMI): Code(s): I21.4 - Non-ST elevation (NSTEMI) myocardial infarction Status: Inactive Assessment and Plan: Cardiology consult noted. Current treatment. trend troponin Plan Bilateral pleural effusion Underwent thoracentesis on 11/03 on left side pleural effusion Drained 1 L Pending pleural fluid analysis Will repeat a chest x-ray tomorrow Acute on chronic hypoxemic respiratory From CHF and pneumonia CT showed bilateral pleural effusion with atelectasis and focal pneumonia Currently on 4 L oxygen, baseline is 2 L oxygen. Continue Lasix 40 mg IV b.i.d. and levofloxacin Monitor. 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 CHF exacerbation No echo on file does unable to specify Patient presented with shortness of breath, leg edema orthopnea. He has a CT chest showed a urine effusion bilaterally atelectasis. Continue lasix 40 IV b.i.d. Cardiology consulted. Pneumonia Resolved CT chest showed a right bundle Blood and sputum culture ordered MRSA pending DC Levaquin Follow-up closely. UTI Started on cefdinir 300 mg p.o. q.d. Reviewed urine culture which shows Klebsiella pneumoniae Anemia Hemoglobin is 8.6 GI consulted outpatient follow-up for endoscopy and colonoscopy Anemia panel shows iron deficiency anemia. Monitor H and H Type 2 diabetes Blood sugar on target Decrease Lantus 10 units in the night to 5 U and correctional insulin Continue 46U QD Decrease home Lantus Humalog insulin 8U to 5 U Sliding scale insulin with Accu-Cheks. Chronic Garcia for urinary incontinence Discussed voiding trial but patient refuses. Continue Garcia per patient's preference History of stroke Continue aspirin and Lipitor No residual weakness Afib on Metoprolol and DC heparin infusion Xarelto 15 mg PO QD cardiology consulted DVT prophylaxis on heparin infusion. Do not resuscitate [facility] power of transactional attorney, Arnoldo Garcia Subjective Date/time seen: 11/04/24 08:45 Interval history: Will repeat his chest x-ray tomorrow to follow up on the pleural effusion. Continue holding Xarelto. Decreased her bolus insulin from 8 units to 6 units due to hypoglycemia and reduced Lantus 10 U to 5 U. Review of Systems Review of Systems: All other systems reviewed and negative except as noted in history above. Exam Narrative: General: alert and comfortable Eyes: EOMI, PERRLA ENNT External ears normal, Neck is supple, no masses, Respiratory systems: Air entry decreased, few rales at bases Cardiovascular S1, S2, normal rhythm, no murmur, rub, or gallop; no thrill or palpable murmurs on palpation. Gastrointestinal: soft, non-tender, and non-distended abdomen with no masses; BS present Skin: no rash, lesions, ulcerations, subcutaneous nodules or induration Musculoskeletal: Bilateral lower extremity edema 3+ Neurologic: Alert and oriented x3, non focal Mental Status Exam: normal affect Objective Data Vital Signs Vital Signs: Vital Signs - 24 hr 11/03/24 09:01 11/03/24 11:38 11/03/24 12:00 Temperature 96.2 F L Pulse Rate 101 H 95 94 Respiratory Rate 18 Blood Pressure 102/70 Pulse Oximetry 98 Oxygen Delivery 11/03/24 16:00 11/03/24 17:29 11/03/24 20:00 Temperature 98.2 F Pulse Rate 90 98 Respiratory Rate 14 Blood Pressure 107/65 95/55 L Pulse Oximetry 95 Oxygen Delivery 11/03/24 20:00 11/04/24 00:00 11/04/24 00:00 Temperature 98.0 F Pulse Rate 99 95 Respiratory Rate 15 20 Blood Pressure 98/65 L Pulse Oximetry 95 100 Oxygen Delivery Autopap 11/04/24 00:00 11/04/24 01:57 11/04/24 04:00 Temperature Pulse Rate 96 88 Respiratory Rate 16 Blood Pressure Pulse Oximetry 100 Oxygen Delivery Autopap 11/04/24 04:00 11/04/24 08:00 Temperature 97.8 F 96.1 F L Pulse Rate 88 94 Respiratory Rate 18 18 Blood Pressure 100/61 110/67 Pulse Oximetry 93 96 Oxygen Delivery Intake/Output Intake/Output: Intake & Output 11/01/24 11/02/24 11/03/24 11/04/24 23:59 23:59 23:59 23:59 Intake Total 1220 1270 1300 240 Output Total 2179 1320 7655 600 Balance -955 -3480 -1200 -360 Meds/Results Medications: Active Medications Generic Name Dose Route Start Last Admin Trade Name Freq PRN Reason Stop Dose Admin Hydrocodone Bitart/Acetaminophen 1 tab 10/30/24 05:59 11/03/24 20:43 Hydrocodone/Acetaminophen (*Crx) 10-325 Mg Tablet PO 1 tab BID PRN Administration pain Aspirin 81 mg 10/30/24 09:00 11/03/24 07:36 Aspirin 81 Mg Enteric Tablet PO Not Given QAM [facility] Atorvastatin Calcium 80 mg 10/29/24 11:15 11/03/24 09:00 Atorvastatin 40 Mg Tablet PO 80 mg DAILY SIRISHA Administration Benzonatate 200 mg 10/29/24 17:00 11/03/24 17:35 Benzonatate 100 Mg Capsule PO 200 mg TID SIRISHA Administration Cefdinir 300 mg 11/01/24 10:30 11/03/24 20:44 Cefdinir 300 Mg Capsule PO 11/07/24 21:01 300 mg Q12HR SIRISHA Administration Celecoxib 200 mg 10/29/24 17:00 11/03/24 17:35 Celecoxib 200 Mg Capsule PO 200 mg BIDWM SIRISHA Administration Cyclobenzaprine HCl 10 mg 10/30/24 09:00 11/03/24 17:35 Cyclobenzaprine Hcl 10 Mg Tablet PO 10 mg TID SIRISHA Administration Dextrose 12.5 gm 10/31/24 16:56 Dextrose 50% 25 Gm/50 Ml Syringe IV PUSH PRN PRN Hypoglycemia Protocol Docusate Sodium 100 mg 10/29/24 11:10 Docusate Sodium 100 Mg Capsule PO BID PRN constipation Ezetimibe 10 mg 10/29/24 11:20 11/03/24 09:00 Ezetimibe 10 Mg Tablet PO 10 mg DAILY SIRISHA Administration Furosemide 40 mg 10/29/24 17:10 11/03/24 17:34 Furosemide Inj 40 Mg/4 Ml Vial IV PUSH 40 mg BID SIRISHA Administration Gabapentin 400 mg 10/29/24 14:00 11/04/24 06:30 Gabapentin 400 Mg Capsule BY MOUTH 400 mg 0700,1400 SIRISHA Administration Gabapentin 1,200 mg 10/29/24 21:00 11/03/24 20:44 Gabapentin 400 Mg Capsule BY MOUTH 1,200 mg QHS SIRISHA Administration Glucagon 1 mg 10/31/24 16:56 Glucagon For Inj 1 Mg Vial IM PRN PRN Hypoglycemia Protocol Glucose 15 gm 10/31/24 16:56 Glucose Oral Gel 15 Gm Of Glucse In 37.5 Gm Tube PO PRN PRN Hypoglycemia Protocol Dextrose 1,000 mls @ 100 mls/hr 10/31/24 16:56 Dextrose 5% 1,000 Ml IVPB PRN PRN Hypoglycemia Protocol Insulin Aspart 8 units 10/29/24 12:00 11/03/24 17:35 Insulin Aspart (*Bkc) 100 Units/Ml SUB-Q 8 units TIDWM [facility] Administration Insulin Aspart 2 - 5 units 10/31/24 17:00 11/03/24 17:36 Insulin Aspart (*Bkc) 100 Units/Ml SUB-Q Not Given TIDWM [facility] Protocol Insulin Glargine 46 units 10/30/24 09:00 11/03/24 07:57 Insulin Glargine (*Bkc) 100 Units/Ml SUB-Q Not Given DAILY [facility] Insulin Glargine 10 units 10/31/24 21:00 11/03/24 20:45 Insulin Glargine (*Bkc) 100 Units/Ml SUB-Q 10 units HS SIRISHA Administration Metoprolol Succinate 25 mg 11/02/24 10:30 11/03/24 09:01 Metoprolol Succinate Ext Rel 25 Mg Tabcr PO 25 mg DAILY SIRISHA Administration Ondansetron HCl 4 mg 10/30/24 12:57 Ondansetron Inj 4 Mg/2 Ml Vial IV PUSH Q6H PRN Nausea And Vomiting Pantoprazole Sodium 40 mg 10/30/24 09:00 11/03/24 09:00 Pantoprazole 40 Mg Tablet PO 40 mg QAM SIRISHA Administration Polysaccharide Iron Complex 150 mg 10/31/24 08:00 11/03/24 09:02 Polysaccharide Iron Complex 150 Mg Capsule PO 150 mg DAILY@0800 SIRISHA Administration Rivaroxaban 15 mg 10/31/24 18:00 10/31/24 17:16 Rivaroxaban 15 Mg Tablet PO 15 mg EVENING SIRISHA Administration Radiology Results: ITS Impressions Thoracentesis Ultrasound 11/03/24 11:07 IMPRESSION: 1. Successful ultrasound-guided thoracentesis yielding 1000 mL of yellow fluid. Chest X-Ray 11/04/24 05:53 IMPRESSION: 1. Stable airspace opacities in left lower lung zone, consistent with pneumonia. 2. Cardiomegaly. Labs Labs: Laboratory Results - last 24 hr 11/03/24 11/03/24 11/03/24 08:02 10:18 11:21 PT 14.3 INR 1.1 APTT 27.1 POC Capillary Glucose 80 Pleural Fluid Source Pleural fluid Pleural Color Yellow Pleural Appearance Hazy Pleural pH > 7.500 H Pleural RBC < 2000 Pleural Nuc Cells 852 Pleural Neutrophils 52 H Pleural Lymphocytes 9 Pleural Monocytes 10 Pleural Macrophages 18 Pleural Mesothelial 9 Pleural Other Cells 2 11/03/24 11/03/24 11/04/24 16:27 20:34 07:40 PT INR APTT POC Capillary Glucose 167 H 192 H 223 H Pleural Fluid Source Pleural Color Pleural Appearance Pleural pH Pleural RBC Pleural Nuc Cells Pleural Neutrophils Pleural Lymphocytes Pleural Monocytes Pleural Macrophages Pleural Mesothelial Pleural Other Cells Hospitalist MIPS Advance Care Plan I have confirmed that the patient's Advanced Care Plan is present, code status is documented, or surrogate decision maker is listed in patient medical record.: Yes Medication Reconciliation I have utilized all available resources to obtain, update and review the patients current medications (includes all prescriptions, OTC, herbals, cannabis, and nutritional supplements).: Yes
--- NOTE | 2024-11-04 09:07 | PCNWS ---
Weekly nutritional screen. Patient is tolerating current diabetic diet with adequate intake 75-100%. No weight loss reported. No nutritional recommendations at this time.
[2024-11-04] MEDS: FUROSEMIDE INJ 40 MG/4 ML VIAL IV PUSH ×2 (09:14→17:20)
[2024-11-04] MEDS: BENZONATATE 100 MG CAPSULE 200 MG PO ×3 (09:14→17:20)
[2024-11-04] MEDS: CEFDINIR 300 MG CAPSULE PO ×2 (09:14→20:43)
[2024-11-04] MEDS: CELECOXIB 200 MG CAPSULE PO ×2 (09:15→17:20)
[2024-11-04] MEDS: POLYSACCHARIDE IRON COMPLEX 150 MG CAPSULE PO (09:15)
[2024-11-04] MEDS: ASPIRIN 81 MG ENTERIC TABLET PO (09:15)
[2024-11-04] MEDS: ATORVASTATIN 40 MG TABLET 80 MG PO (09:15)
[2024-11-04] MEDS: PANTOPRAZOLE 40 MG TABLET PO (09:15)
[2024-11-04] MEDS: METOPROLOL SUCCINATE EXT REL 25 MG TABCR PO (09:15)
[2024-11-04] MEDS: CYCLOBENZAPRINE HCL 10 MG TABLET PO ×3 (09:16→17:20)
[2024-11-04] MEDS: EZETIMIBE 10 MG TABLET PO (09:16)
[2024-11-04] MEDS: INSULIN ASPART (*BKC) 100 UNITS/ML 8 UNITS SUB-Q ×2 (09:19→12:43)
[2024-11-04] MEDS: INSULIN ASPART (*BKC) 100 UNITS/ML SUB-Q (09:22)
[2024-11-04] MEDS: INSULIN GLARGINE (*BKC) 100 UNITS/ML 46 UNITS SUB-Q (09:22)
--- NOTE | 2024-11-04 10:20 | PM.PNCARD ---
Progress Note: A&P Assessment and Plan (1) CHF (congestive heart failure): Code(s): I50.9 - Heart failure, unspecified Status: Acute Plan 1. Acute on chronic heart failure with reduced LVEF. Last LVEF 45% per [facility] notes. Echocardiogram this admission shows LVEF 25-30%. 2. Elevated troponins. Troponin elevation likely due to demand ischemia, unlikely ACS. 3. Acute on chronic hypoxic respiratory failure 4. Pneumonia 5. 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 Has been medically managed. 6. Paroxysmal atrial fibrillation 7. Diabetes mellitus 8. History of seizure disorder 9. PVD 10. History of PE 11. CKD 12. Medication noncompliance. 13. Anemia PLAN -S/p thoracentesis 11/03 with removal of 1 L of fluid. -Continue IV Lasix 40mg BID. Please monitor strict I/Os. Will give a one time dose of Metolazone today. Anticipate transitioning to PO diuretics this weekend (would do Bumex 1mg BID). -Continue Metoprolol. Unable to advance heart failure GDMT at this time to avoid hypotension. -Continue ASA, Atorvastatin, Zetia for CAD. -Continue Xarelto 15mg once daily for stroke risk reduction for AFIB; was on hold for thoracentesis, resume when okay. Primary risk management analyst is Dr. Rose Conn at [facility], last visit was in July 2024. Patient to follow up with her primary risk management analyst after hospital discharge. Recommendations and plan discussed with Hospitalist. Subjective Date/time seen: 11/04/24 10:20 Interval history: Reason for visit: CHF HPI: We are consulted for CHF, elevated troponin. This is a 48 year old female who presented to [facility] with shortness of breath and cough for the past month. Apparently was recently hospitalized at [facility] for similar symptoms. On 2L of O2 at home. Workup at [facility] shows troponins of 755, 700. Troponin here 0.373. NT pro BNP of 10,650. Chest CTA with bilateral pleural effusions, possible pneumonia. EKG with sinus rhythm, LVH. No prior echocardiogram in our system. Upon my evaluation, patient is quite sleepy. Reports improvement in her shortness of breath. No chest pain. Personally reviewed [facility] records and noted as below: Has history of seizure disorder, CHF, DM, PVD, history of PE, PAF, CKD, medication noncompliance. Has known diffuse MVCAD, which was discovered on [facility] 2021, not a candidate for bypass surgery due to unsuitable anatomy. Admitted to [facility] in September for DKA, NSTEMI, flu +. Was intubated from 09/15 to 09/22, Workup of altered mental status negative, including brain MRI, EEG. 09/13 blood cultures positive for MSSA bacteremia. DEMI negative for valvular heart disease. NSTEMI thought to be due to demand ischemia. LVEF noted to be 45%. Primary risk management analyst is Dr. Rose Conn at [facility], last visit was in July 2024. Date of service 10/31: No chest pain today. Shortness of breath improving. Still has lower extremity swellings. Continues to have paroxysmal nocturnal dyspnea and orthopnea. Date of service 11/01: Still feels like she gets winded at times. Still with lower extremity edema. Date of service 11/02: Still with shortness of breath, cough; feels like it may be slightly better. Lower extremity edema improving. Date of service 11/03: Shortness of breath has significantly improved. No further orthopnea. Lower extremity swelling almost resolved. Date of service 11/04: Underwent thoracentesis yesterday. Still reporting a cough. Lower extremity swelling has significantly improved, still some edema this morning. Review of Systems Cardiovascular: Cardiovascular: Reports as per HPI Exam Const: General: comfortable and no acute distress HENMT: Mouth: Yes moist mucous membranes Eyes: General: appearance normal, both eyes and all related structures Sclera: sclerae normal Neck: Neck: supple Resp: Effort & Inspection: normal respiratory effort Cardio: Rate: regular rate Rhythm: regular rhythm Other: + Bilateral lower extremity swelling Skin: General skin exam: normal color Neuro: Speech: normal speech Psych: Mental Status: mental status grossly normal Affect: normal affect Objective Data Vital Signs Vital Signs: Vital Signs - 24 hr 11/03/24 11:38 11/03/24 12:00 11/03/24 16:00 Temperature 35.7 C L Pulse Rate 95 94 90 Respiratory Rate 18 Blood Pressure 102/70 Pulse Oximetry 98 Oxygen Delivery 11/03/24 17:29 11/03/24 20:00 11/03/24 20:00 Temperature 36.8 C Pulse Rate 98 99 Respiratory Rate 14 Blood Pressure 107/65 95/55 L Pulse Oximetry 95 Oxygen Delivery 11/04/24 00:00 11/04/24 00:00 11/04/24 00:00 Temperature 36.7 C Pulse Rate 95 96 Respiratory Rate 15 20 Blood Pressure 98/65 L Pulse Oximetry 95 100 Oxygen Delivery Autopap 11/04/24 01:57 11/04/24 04:00 11/04/24 04:00 Temperature 36.6 C Pulse Rate 88 88 Respiratory Rate 16 18 Blood Pressure 100/61 Pulse Oximetry 100 93 Oxygen Delivery Autopap 11/04/24 08:00 11/04/24 09:15 11/04/24 09:40 Temperature 35.6 C L Pulse Rate 94 92 Respiratory Rate 18 Blood Pressure 110/67 Pulse Oximetry 96 94 Oxygen Delivery Room Air Intake/Output Intake/Output: Intake & Output 11/01/24 11/02/24 11/03/24 11/04/24 23:59 23:59 23:59 23:59 Intake Total 1220 1270 1300 480 Output Total 2175 6880 2500 600 Balance -955 -3480 -1200 -120 Meds/Results Medications: Active Medications Generic Name Dose Route Start Last Admin Trade Name Freq PRN Reason Stop Dose Admin Hydrocodone Bitart/Acetaminophen 1 tab 10/30/24 05:59 11/03/24 20:43 Hydrocodone/Acetaminophen (*Crx) 10-325 Mg Tablet PO 1 tab BID PRN Administration pain Aspirin 81 mg 10/30/24 09:00 11/04/24 09:15 Aspirin 81 Mg Enteric Tablet PO 81 mg QAM SIRISHA Administration Atorvastatin Calcium 80 mg 10/29/24 11:15 11/04/24 09:15 Atorvastatin 40 Mg Tablet PO 80 mg DAILY SIRISHA Administration Benzonatate 200 mg 10/29/24 17:00 11/04/24 09:14 Benzonatate 100 Mg Capsule PO 200 mg TID SIRISHA Administration Cefdinir 300 mg 11/01/24 10:30 11/04/24 09:14 Cefdinir 300 Mg Capsule PO 11/07/24 21:01 300 mg Q12HR SIRISHA Administration Celecoxib 200 mg 10/29/24 17:00 11/04/24 09:15 Celecoxib 200 Mg Capsule PO 200 mg BIDWM SIRISHA Administration Cyclobenzaprine HCl 10 mg 10/30/24 09:00 11/04/24 09:16 Cyclobenzaprine Hcl 10 Mg Tablet PO 10 mg TID SIRISHA Administration Dextrose 12.5 gm 10/31/24 16:56 Dextrose 50% 25 Gm/50 Ml Syringe IV PUSH PRN PRN Hypoglycemia Protocol Docusate Sodium 100 mg 10/29/24 11:10 Docusate Sodium 100 Mg Capsule PO BID PRN constipation Ezetimibe 10 mg 10/29/24 11:20 11/04/24 09:16 Ezetimibe 10 Mg Tablet PO 10 mg DAILY SIRISHA Administration Furosemide 40 mg 10/29/24 17:10 11/04/24 09:14 Furosemide Inj 40 Mg/4 Ml Vial IV PUSH 40 mg BID SIRISHA Administration Gabapentin 400 mg 10/29/24 14:00 11/04/24 06:30 Gabapentin 400 Mg Capsule BY MOUTH 400 mg 0700,1400 SIRISHA Administration Gabapentin 1,200 mg 10/29/24 21:00 11/03/24 20:44 Gabapentin 400 Mg Capsule BY MOUTH 1,200 mg QHS SIRISHA Administration Glucagon 1 mg 10/31/24 16:56 Glucagon For Inj 1 Mg Vial IM PRN PRN Hypoglycemia Protocol Glucose 15 gm 10/31/24 16:56 Glucose Oral Gel 15 Gm Of Glucse In 37.5 Gm Tube PO PRN PRN Hypoglycemia Protocol Dextrose 1,000 mls @ 100 mls/hr 10/31/24 16:56 Dextrose 5% 1,000 Ml IVPB PRN PRN Hypoglycemia Protocol Insulin Aspart 8 units 10/29/24 12:00 11/04/24 09:19 Insulin Aspart (*Bkc) 100 Units/Ml SUB-Q 8 units TIDWM SIRISHA Administration Insulin Aspart 2 - 5 units 10/31/24 17:00 11/04/24 09:22 Insulin Aspart (*Bkc) 100 Units/Ml SUB-Q 2 units TIDWM SIRISHA Administration Protocol Insulin Glargine 46 units 10/30/24 09:00 11/04/24 09:22 Insulin Glargine (*Bkc) 100 Units/Ml SUB-Q 46 units DAILY SIRISHA Administration Insulin Glargine 10 units 10/31/24 21:00 11/03/24 20:45 Insulin Glargine (*Bkc) 100 Units/Ml SUB-Q 10 units HS SIRISHA Administration Metoprolol Succinate 25 mg 11/02/24 10:30 11/04/24 09:15 Metoprolol Succinate Ext Rel 25 Mg Tabcr PO 25 mg DAILY SIRISHA Administration Ondansetron HCl 4 mg 10/30/24 12:57 Ondansetron Inj 4 Mg/2 Ml Vial IV PUSH Q6H PRN Nausea And Vomiting Pantoprazole Sodium 40 mg 10/30/24 09:00 11/04/24 09:15 Pantoprazole 40 Mg Tablet PO 40 mg QAM SIRISHA Administration Polysaccharide Iron Complex 150 mg 10/31/24 08:00 11/04/24 09:15 Polysaccharide Iron Complex 150 Mg Capsule PO 150 mg DAILY@0800 SIRISHA Administration Rivaroxaban 15 mg 10/31/24 18:00 10/31/24 17:16 Rivaroxaban 15 Mg Tablet PO 15 mg EVENING SIRISHA Administration Radiology Results: ITS Impressions Thoracentesis Ultrasound 11/03/24 11:07 IMPRESSION: 1. Successful ultrasound-guided thoracentesis yielding 1000 mL of yellow fluid. Chest X-Ray 11/04/24 05:53 IMPRESSION: 1. Stable airspace opacities in left lower lung zone, consistent with pneumonia. 2. Cardiomegaly. Labs Labs: Laboratory Results - last 24 hr 11/03/24 11/03/24 11/03/24 10:18 11:21 16:27 POC Capillary Glucose 80 167 H Pleural Fluid Source Pleural fluid Pleural Color Yellow Pleural Appearance Hazy Pleural pH > 7.500 H Pleural RBC < 2000 Pleural Nuc Cells 852 Pleural Neutrophils 52 H Pleural Lymphocytes 9 Pleural Monocytes 10 Pleural Macrophages 18 Pleural Mesothelial 9 Pleural Other Cells 2 11/03/24 11/04/24 20:34 07:40 POC Capillary Glucose 192 H 223 H Pleural Fluid Source Pleural Color Pleural Appearance Pleural pH Pleural RBC Pleural Nuc Cells Pleural Neutrophils Pleural Lymphocytes Pleural Monocytes Pleural Macrophages Pleural Mesothelial Pleural Other Cells
[2024-11-04 11:01] LABS: Hematocrit 30.9 % (37.0-47.0); Hemoglobin 9.2 g/dL (12.0-15.0); Mean Corpuscular HGB Conc 29.8 g/dl (32-36); Mean Corpuscular Volume 97.5 fl (80-100); Mean Platelet Volume 11.1 fl (7.4-10.4); Platelet Count Result 192 k/mm3 (150-375); Red Blood Count 3.17 M/mm3 (4.2-5.4); Red Cell Distribution Width 16.5 % (11.5-14.5); White Blood Count 8.4 K/mm3 (4.5-10.0)
[2024-11-04 11:10] LABS: Alanine Aminotransferase 14 U/L (6-35); Alkaline Phosphatase 140 U/L (38-126); Anion Gap 4 mmol/L (4-12); Aspartate Amino Transferase 20 U/L (14-36); Bilirubin,Total 0.4 mg/dL (0.2-1.3); Blood Urea Nitrogen 45 mg/dL (7-17); Calcium 8.6 mg/dL (8.4-10.2); Carbon Dioxide 32 mmol/L (22-30); Chloride 104 mmol/L (98-107); Estimated CRCL calculation 57 ml/min; Estimated Glomerular Filt Rate 44; Glucose 172 mg/dL (65-110); Potassium 4.9 mmol/L (3.4-5.0); Sodium 140 mmol/L (137-145)
[2024-11-04 11:55] LABS: Glucose Point of Care 194 mg/dl (65-105)
[2024-11-04 11:55] LABS: Glucose Point of Care 486 mg/dl (65-105)
--- NOTE | 2024-11-04 12:20 | PCCDE ---
11/04/24 POC Fasting 11/01 - 11/04: [phone] day/HS POC 11/01 - 11/04 range: 76-192 PLUS: 11/02 16:04: 49 (L) Meds: Lantus 46 U /day Lantus HS 10 U Novolog 8 U TIDwm Novolog low dose correction Pt receiving inconsistent mealtime bolus and HS dosing. Discussed in Multidisciplinary meeting Due to improved overall status, Fasting glucose within range, hypoglycemia event, significantly improved glucose overall since previous >300, - RECOMMEND: Reduce HS Lantus from 10 U To 5 U Reduce Novolog TIDWM from 8 U to 6 U At this time, expect DC tomorrow. MERVIN.
[2024-11-04] MEDS: metOLazone 5 MG TABLET PO (12:39)
[2024-11-04 16:05] LABS: Glucose Point of Care 45 mg/dl (65-105)
[2024-11-04] MEDS: DEXTROSE 50% 25 GM/50 ML SYRINGE IV PUSH (16:05)
[2024-11-04 16:34] LABS: Glucose Point of Care 146 mg/dl (65-105)
[2024-11-04] MEDS: ONDANSETRON INJ 4 MG/2 ML VIAL IV PUSH (18:19)
[2024-11-04] MEDS: GABAPENTIN 400 MG CAPSULE 1200 MG BY MOUTH (20:43)
[2024-11-04] MEDS: INSULIN GLARGINE (*BKC) 100 UNITS/ML SUB-Q (20:44)
[2024-11-04 20:46] LABS: Glucose Point of Care 133 mg/dl (65-105)
[2024-11-05] VITALS (9 sets, daily range): BP systolic 84–118; BP diastolic 49–63; PULSE 85–102; RESP 13–18; TEMP 35.6–36.1; O2SAT 92–100
[2024-11-05] MEDS: GABAPENTIN 400 MG CAPSULE BY MOUTH ×2 (05:51→13:39)
[2024-11-05 06:43] LABS: Hematocrit 29.5 % (37.0-47.0); Hemoglobin 8.8 g/dL (12.0-15.0); Mean Corpuscular HGB Conc 29.8 g/dl (32-36); Mean Corpuscular Hemoglobin 28.7 pg (26-34); Mean Corpuscular Volume 96.1 fl (80-100); Mean Platelet Volume 10.9 fl (7.4-10.4); Platelet Count Result 193 k/mm3 (150-375); Red Blood Count 3.07 M/mm3 (4.2-5.4); Red Cell Distribution Width 16.4 % (11.5-14.5); White Blood Count 9.2 K/mm3 (4.5-10.0)
[2024-11-05 06:52] LABS: Glucose Point of Care 115 mg/dl (65-105)
[2024-11-05 06:56] LABS: Alanine Aminotransferase 14 U/L (6-35); Albumin Level 2.8 g/dL (3.5-5.1); Alkaline Phosphatase 126 U/L (38-126); Anion Gap 5 mmol/L (4-12); Aspartate Amino Transferase 18 U/L (14-36); Bilirubin,Total 0.3 mg/dL (0.2-1.3); Blood Urea Nitrogen 45 mg/dL (7-17); Calcium 8.4 mg/dL (8.4-10.2); Carbon Dioxide 30 mmol/L (22-30); Chloride 103 mmol/L (98-107); Estimated CRCL calculation 53 ml/min; Estimated Glomerular Filt Rate 41; Glucose 135 mg/dL (65-110); Potassium 4.6 mmol/L (3.4-5.0); Sodium 138 mmol/L (137-145)
[2024-11-05 08:08] LABS: Glucose Point of Care 106 mg/dl (65-105)
[2024-11-05] MEDS: ALBUMIN HUMAN 25% 25 GM/100 ML 100 ML IVPB (08:58)
[2024-11-05] MEDS: POLYSACCHARIDE IRON COMPLEX 150 MG CAPSULE PO (08:59)
[2024-11-05] MEDS: ATORVASTATIN 40 MG TABLET 80 MG PO (08:59)
[2024-11-05] MEDS: PANTOPRAZOLE 40 MG TABLET PO (08:59)
[2024-11-05] MEDS: CEFDINIR 300 MG CAPSULE PO ×2 (08:59→20:54)
[2024-11-05] MEDS: CYCLOBENZAPRINE HCL 10 MG TABLET PO (08:59)
[2024-11-05] MEDS: BENZONATATE 100 MG CAPSULE 200 MG PO ×3 (08:59→16:54)
[2024-11-05] MEDS: CELECOXIB 200 MG CAPSULE PO ×2 (08:59→16:54)
[2024-11-05] MEDS: ASPIRIN 81 MG ENTERIC TABLET PO (08:59)
[2024-11-05] MEDS: EZETIMIBE 10 MG TABLET PO (09:00)
[2024-11-05 11:58] LABS: Glucose Point of Care 122 mg/dl (65-105)
--- NOTE | 2024-11-05 12:06 | PM.PNCARD ---
Progress Note: A&P Assessment and Plan (1) CHF (congestive heart failure): Code(s): I50.9 - Heart failure, unspecified Status: Acute Plan 1. Acute on chronic heart failure with reduced LVEF. Last LVEF 45% per [facility] notes. Echocardiogram this admission shows LVEF 25-30%. 2. Elevated troponins. Troponin elevation likely due to demand ischemia, unlikely ACS. 3. Acute on chronic hypoxic respiratory failure 4. Pneumonia 5. 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 Has been medically managed. 6. Paroxysmal atrial fibrillation 7. Diabetes mellitus 8. History of seizure disorder 9. PVD 10. History of PE 11. CKD: Creatinine increased slightly to 1.38 today. 12. Medication noncompliance. 13. Anemia PLAN -S/p thoracentesis 11/03 with removal of 1 L of fluid. -will discontinue furosemide. Will start her on Bumex 1 mg p.o. daily. May be more but given bump in creatinine today, will start with 1 mg. -Continue Metoprolol. Unable to advance heart failure GDMT at this time to avoid hypotension. -Continue ASA, Atorvastatin, Zetia for CAD. -Continue Xarelto 15mg once daily for stroke risk reduction for AFIB Primary wild life manager is Dr. Rose Conn at [facility], last visit was in July 2024. Patient to follow up with her primary wild life manager after hospital discharge. Recommendations and plan discussed with Hospitalist. Subjective Date/time seen: 11/05/24 12:06 Interval history: Reason for visit: CHF HPI: We are consulted for CHF, elevated troponin. This is a 48 year old female who presented to [place] with shortness of breath and cough for the past month. Apparently was recently hospitalized at [facility] for similar symptoms. On 2L of O2 at home. Workup at [place] shows troponins of 755, 700. Troponin here 0.373. NT pro BNP of 10,650. Chest CTA with bilateral pleural effusions, possible pneumonia. EKG with sinus rhythm, LVH. No prior echocardiogram in our system. Upon my evaluation, patient is quite sleepy. Reports improvement in her shortness of breath. No chest pain. Personally reviewed [facility] records and noted as below: Has history of seizure disorder, CHF, DM, PVD, history of PE, PAF, CKD, medication noncompliance. Has known diffuse MVCAD, which was discovered on [facility] 2021, not a candidate for bypass surgery due to unsuitable anatomy. Admitted to [facility] in September for DKA, NSTEMI, flu +. Was intubated from 09/15 to 09/22, Workup of altered mental status negative, including brain MRI, EEG. 09/13 blood cultures positive for MSSA bacteremia. DEMI negative for valvular heart disease. NSTEMI thought to be due to demand ischemia. LVEF noted to be 45%. Primary wild life manager is Dr. Rose Conn at [facility], last visit was in July 2024. Date of service 10/31: No chest pain today. Shortness of breath improving. Still has lower extremity swellings. Continues to have paroxysmal nocturnal dyspnea and orthopnea. Date of service 11/01: Still feels like she gets winded at times. Still with lower extremity edema. Date of service 11/02: Still with shortness of breath, cough; feels like it may be slightly better. Lower extremity edema improving. Date of service 11/03: Shortness of breath has significantly improved. No further orthopnea. Lower extremity swelling almost resolved. Date of service 11/04: Underwent thoracentesis yesterday. Still reporting a cough. Lower extremity swelling has significantly improved, still some edema this morning. Date of service 11/05/2024: Still feels cough and congestion but less swelling and less short of breath. Feels ?shaky ?. No chest pain Review of Systems Review of Systems: All systems reviewed & are unremarkable except as noted in HPI and below (HPI) Cardiovascular: Cardiovascular: Reports as per HPI and Denies chest pain Respiratory: Respiratory: Reports as per HPI and Reports cough Gastrointestinal: Gastrointestinal: Denies abdominal pain Exam Const: General: comfortable and no acute distress HENMT: Mouth: Yes moist mucous membranes Eyes: General: appearance normal, both eyes and all related structures Sclera: sclerae normal Neck: Neck: supple and no JVD Resp: Effort & Inspection: normal respiratory effort Auscultation: crackles, rales, wheezes and diminished lung sounds Cardio: Rate: regular rate Rhythm: regular rhythm Heart sounds: no murmurs Other: Mild Bilateral lower extremity swelling Skin: General skin exam: normal color Neuro: Speech: normal speech Other: Sleepy Extrem: General: edema and pedal edema Psych: Mental Status: mental status grossly normal Affect: normal affect Objective Data Vital Signs Vital Signs: Vital Signs - 24 hr 11/04/24 15:48 11/04/24 20:00 11/04/24 20:00 Temperature 36.0 C L 36.2 C L Pulse Rate 86 86 Respiratory Rate 18 18 Blood Pressure 97/57 L 80/50 L Pulse Oximetry 100 90 Oxygen Delivery Room Air 11/04/24 20:00 11/04/24 22:02 11/04/24 23:25 Temperature 36.4 C Pulse Rate 86 94 97 Respiratory Rate 15 12 Blood Pressure 96/53 L Pulse Oximetry 97 97 Oxygen Delivery Autopap 11/05/24 00:00 11/05/24 01:58 11/05/24 04:00 Temperature Pulse Rate 85 90 92 Respiratory Rate 13 Blood Pressure Pulse Oximetry 96 Oxygen Delivery Autopap 11/05/24 04:00 11/05/24 08:00 11/05/24 08:00 Temperature 36.1 C L 35.7 C L Pulse Rate 91 92 92 Respiratory Rate 18 18 18 Blood Pressure 94/49 L 84/56 L Pulse Oximetry 100 94 94 Oxygen Delivery Room Air Intake/Output Intake/Output: Intake & Output 11/02/24 11/03/24 11/04/24 11/05/24 23:59 23:59 23:59 23:59 Intake Total 1270 1300 720 440 Output Total 4750 2500 1850 1000 [facility] -3480 -1200 -1130 -560 Meds/Results Medications: Active Medications Generic Name Dose Route Start Last Admin Trade Name Freq PRN Reason Stop Dose Admin Hydrocodone Bitart/Acetaminophen 1 tab 10/30/24 05:59 11/03/24 20:43 Hydrocodone/Acetaminophen (*Crx) 10-325 Mg Tablet PO 1 tab BID PRN Administration pain Aspirin 81 mg 10/30/24 09:00 11/05/24 08:59 Aspirin 81 Mg Enteric Tablet PO 81 mg QAM SIRISHA Administration Atorvastatin Calcium 80 mg 10/29/24 11:15 11/05/24 08:59 Atorvastatin 40 Mg Tablet PO 80 mg DAILY SIRISHA Administration Benzonatate 200 mg 10/29/24 17:00 11/05/24 08:59 Benzonatate 100 Mg Capsule PO 200 mg TID SIRISHA Administration Cefdinir 300 mg 11/01/24 10:30 11/05/24 08:59 Cefdinir 300 Mg Capsule PO 11/07/24 21:01 300 mg Q12HR SIRISHA Administration Celecoxib 200 mg 10/29/24 17:00 11/05/24 08:59 Celecoxib 200 Mg Capsule PO 200 mg BIDWM SIRISHA Administration Cyclobenzaprine HCl 10 mg 10/30/24 09:00 11/05/24 08:59 Cyclobenzaprine Hcl 10 Mg Tablet PO 10 mg TID SIRISHA Administration Dextrose 12.5 gm 10/31/24 16:56 11/04/24 16:05 Dextrose 50% 25 Gm/50 Ml Syringe IV PUSH 12.5 gm PRN PRN Administration Hypoglycemia Protocol Docusate Sodium 100 mg 10/29/24 11:10 Docusate Sodium 100 Mg Capsule PO BID PRN constipation Ezetimibe 10 mg 10/29/24 11:20 11/05/24 09:00 Ezetimibe 10 Mg Tablet PO 10 mg DAILY SIRISHA Administration Furosemide 20 mg 11/05/24 09:00 Furosemide 20 Mg Tablet PO BID SIRISHA Gabapentin 400 mg 10/29/24 14:00 11/05/24 05:51 Gabapentin 400 Mg Capsule BY MOUTH 400 mg 0700,1400 SIRISHA Administration Gabapentin 1,200 mg 10/29/24 21:00 11/04/24 20:43 Gabapentin 400 Mg Capsule BY MOUTH 1,200 mg QHS SIRISHA Administration Glucagon 1 mg 10/31/24 16:56 Glucagon For Inj 1 Mg Vial IM PRN PRN Hypoglycemia Protocol Glucose 15 gm 10/31/24 16:56 Glucose Oral Gel 15 Gm Of Glucse In 37.5 Gm Tube PO PRN PRN Hypoglycemia Protocol Dextrose 1,000 mls @ 100 mls/hr 10/31/24 16:56 Dextrose 5% 1,000 Ml IVPB PRN PRN Hypoglycemia Protocol Insulin Aspart 2 - 5 units 10/31/24 17:00 11/05/24 09:00 Insulin Aspart (*Bkc) 100 Units/Ml SUB-Q Not Given TIDWM [facility] Protocol Insulin Aspart 5 units 11/04/24 17:00 11/05/24 10:11 Insulin Aspart (*Bkc) 100 Units/Ml SUB-Q Not Given TIDWM [facility] Insulin Glargine 46 units 10/30/24 09:00 11/05/24 10:11 Insulin Glargine (*Bkc) 100 Units/Ml SUB-Q Not Given DAILY [facility] Insulin Glargine 5 units 11/04/24 21:00 11/04/24 20:44 Insulin Glargine (*Bkc) 100 Units/Ml SUB-Q 5 units HS SIRISHA Administration Metoprolol Succinate 25 mg 11/02/24 10:30 11/05/24 10:10 Metoprolol Succinate Ext Rel 25 Mg Tabcr PO Not Given DAILY SIRISHA Ondansetron HCl 4 mg 10/30/24 12:57 11/04/24 18:19 Ondansetron Inj 4 Mg/2 Ml Vial IV PUSH 4 mg Q6H PRN Administration Nausea And Vomiting Pantoprazole Sodium 40 mg 10/30/24 09:00 11/05/24 08:59 Pantoprazole 40 Mg Tablet PO 40 mg QAM [facility] Administration Polysaccharide Iron Complex 150 mg 10/31/24 08:00 11/05/24 08:59 Polysaccharide Iron Complex 150 Mg Capsule PO 150 mg DAILY@0800 [facility] Administration Rivaroxaban 15 mg 10/31/24 18:00 10/31/24 17:16 Rivaroxaban 15 Mg Tablet PO 15 mg EVENING SIRISHA Administration Radiology Results: ITS Impressions Thoracentesis Ultrasound 11/03/24 11:07 IMPRESSION: 1. Successful ultrasound-guided thoracentesis yielding 1000 mL of yellow fluid. Chest X-Ray 11/05/24 06:20 IMPRESSION: 1. Stable airspace opacities in left mid and lower lung zones, consistent with pneumonia. 2. Small left pleural effusion. 3. Cardiomegaly. Labs Labs: Laboratory Results - last 24 hr 11/04/24 11/04/24 11/04/24 16:00 16:31 20:18 WBC RBC Hgb Hct MCV MCH MCHC RDW Plt Count MPV Sodium Potassium Chloride Carbon Dioxide Anion Gap BUN Creatinine Estim Creat Clear Calc Estimated GFR Glucose POC Capillary Glucose 45 L* 146 H 133 H Calcium Total Bilirubin AST ALT Alkaline Phosphatase Total Protein Albumin 11/05/24 11/05/24 11/05/24 06:05 06:46 07:55 WBC 9.2 RBC 3.07 L Hgb 8.8 L Hct 29.5 L MCV 96.1 MCH 28.7 MCHC 29.8 L RDW 16.4 H Plt Count 193 MPV 10.9 H Sodium 138 Potassium 4.6 Chloride 103 Carbon Dioxide 30 Anion Gap 5 BUN 45 H Creatinine 1.38 H Estim Creat Clear Calc 53 Estimated GFR 41 L Glucose 135 H POC Capillary Glucose 115 H 106 H Calcium 8.4 Total Bilirubin 0.3 AST 18 ALT 14 Alkaline Phosphatase 126 Total Protein 6.0 L Albumin 2.8 L 11/05/24 11:45 WBC RBC Hgb Hct MCV MCH MCHC RDW Plt Count MPV Sodium Potassium Chloride Carbon Dioxide Anion Gap BUN Creatinine Estim Creat Clear Calc Estimated GFR Glucose POC Capillary Glucose 122 H Calcium Total Bilirubin AST ALT Alkaline Phosphatase Total Protein Albumin
--- NOTE | 2024-11-05 15:32 | P.PNIM_ITS ---
Progress Note: A&P Assessment and Plan (1) Acute exacerbation of CHF (congestive heart failure): Qualifiers: Heart failure type: unspecified Qualified Code(s): I50.9 - Heart failure, unspecified Code(s): I50.9 - Heart failure, unspecified Status: Inactive Assessment and Plan: Will continue with IV Lasix. Monitor I's and O's. Cardiology consult noted (2) Pneumonia: Qualifiers: Laterality: unspecified laterality Lung location: unspecified part of lung Pneumonia type: due to unspecified organism Qualified Code(s): J18.9 - Pneumonia, unspecified organism Code(s): J18.9 - Pneumonia, unspecified organism Status: Inactive Assessment and Plan: Continue with IV Levaquin. Repeat chest x-ray in the morning (3) Acute non-ST elevation myocardial infarction (NSTEMI): Code(s): I21.4 - Non-ST elevation (NSTEMI) myocardial infarction Status: Inactive Assessment and Plan: Cardiology consult noted. Current treatment. trend troponin Plan Bilateral pleural effusion Underwent thoracentesis on 11/03 on left side pleural effusion Drained 1 L Pending pleural fluid analysis Will repeat a chest x-ray tomorrow Acute on chronic hypoxemic respiratory From CHF and pneumonia CT showed bilateral pleural effusion with atelectasis and focal pneumonia Currently on 4 L oxygen, baseline is 2 L oxygen. S/P Lasix 40 mg IV b.i.d. and levofloxacin Monitor. 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 CHF exacerbation No echo on file does unable to specify Patient presented with shortness of breath, leg edema orthopnea. He has a CT chest showed plueral effusion bilaterally atelectasis. DC Lasix 40 IV b.i.d. Started Bumex 1mg PO QD Cardiology consulted. Pneumonia Resolved CT chest showed a right bundle Blood and sputum culture Nasal MRSA neg DC Levaquin Follow-up closely. UTI Started on cefdinir 300 mg p.o. q.d. Reviewed urine culture which shows Klebsiella pneumoniae Anemia Hemoglobin is 8.6 GI consulted outpatient follow-up for endoscopy and colonoscopy Anemia panel shows iron deficiency anemia. Monitor H and H Type 2 diabetes Blood sugar on target Decrease Lantus 10 units in the night to 5 U and correctional insulin Continue 46U QD Decrease home Lantus Humalog insulin 8U to 5 U Sliding scale insulin with Accu-Cheks. Chronic Garcia for urinary incontinence Discussed voiding trial but patient refuses. Continue Garcia per patient's preference History of stroke Continue aspirin and Lipitor No residual weakness Afib on Metoprolol and DC heparin infusion Xarelto 15 mg PO QD cardiology consulted DVT prophylaxis on heparin infusion. Do not resuscitate [employer] power of street railway line installer, Arnoldo Garcia Subjective Date/time seen: 11/05/24 15:32 Interval history: Patient has low BP and was given albumin infusion today. Discussed with Cardiology regarding low BP .Cardiology discontinued furosemide and started on Bumex 1mg PO QD.Continue Metoprolol. Unable to advance heart failure GDMT at this time to avoid hypotension. Review of Systems Review of Systems: All other systems reviewed and negative except as noted in history above. Exam Narrative: General: alert and comfortable Eyes: EOMI, PERRLA ENNT External ears normal, Neck is supple, no masses, Respiratory systems: Air entry decreased, few rales at bases Cardiovascular S1, S2, normal rhythm, no murmur, rub, or gallop; no thrill or palpable murmurs on palpation. Gastrointestinal: soft, non-tender, and non-distended abdomen with no masses; BS present Skin: no rash, lesions, ulcerations, subcutaneous nodules or induration Musculoskeletal: Bilateral lower extremity edema 3+ Neurologic: Alert and oriented x3, non focal Mental Status Exam: normal affect Objective Data Vital Signs Vital Signs: Vital Signs - 24 hr 11/04/24 15:48 11/04/24 20:00 11/04/24 20:00 Temperature 96.8 F L 97.1 F L Pulse Rate 86 86 Respiratory Rate 18 18 Blood Pressure 97/57 L 80/50 L Pulse Oximetry 100 90 Oxygen Delivery Room Air 11/04/24 20:00 11/04/24 22:02 11/04/24 23:25 Temperature 97.6 F Pulse Rate 86 94 97 Respiratory Rate 15 12 Blood Pressure 96/53 L Pulse Oximetry 97 97 Oxygen Delivery Autopap 11/05/24 00:00 11/05/24 01:58 11/05/24 04:00 Temperature Pulse Rate 85 90 92 Respiratory Rate 13 Blood Pressure Pulse Oximetry 96 Oxygen Delivery Autopap 11/05/24 04:00 11/05/24 08:00 11/05/24 08:00 Temperature 96.9 F L 96.3 F L Pulse Rate 91 92 92 Respiratory Rate 18 18 18 Blood Pressure 94/49 L 84/56 L Pulse Oximetry 100 94 94 Oxygen Delivery Room Air 11/05/24 11:35 11/05/24 15:27 Temperature 96.0 F L Pulse Rate 102 H Respiratory Rate 18 Blood Pressure 101/61 104/59 L Pulse Oximetry 92 Oxygen Delivery Intake/Output Intake/Output: Intake & Output 11/02/24 11/03/24 11/04/24 11/05/24 23:59 23:59 23:59 23:59 Intake Total 1270 1300 720 680 Output Total 4750 2500 1850 1000 Balance -3480 -1200 -1130 -320 Meds/Results Medications: Active Medications Generic Name Dose Route Start Last Admin Trade Name Freq PRN Reason Stop Dose Admin Hydrocodone Bitart/Acetaminophen 1 tab 10/30/24 05:59 11/03/24 20:43 Hydrocodone/Acetaminophen (*Crx) 10-325 Mg Tablet PO 1 tab BID PRN Administration pain Aspirin 81 mg 10/30/24 09:00 11/05/24 08:59 Aspirin 81 Mg Enteric Tablet PO 81 mg QAM SIRISHA Administration Atorvastatin Calcium 80 mg 10/29/24 11:15 11/05/24 08:59 Atorvastatin 40 Mg Tablet PO 80 mg DAILY SIRISHA Administration Benzonatate 200 mg 10/29/24 17:00 11/05/24 13:39 Benzonatate 100 Mg Capsule PO 200 mg TID SIRISHA Administration Bumetanide 1 mg 11/06/24 09:00 Bumetanide 1 Mg Tablet PO DAILY SIRISHA Cefdinir 300 mg 11/01/24 10:30 11/05/24 08:59 Cefdinir 300 Mg Capsule PO 11/07/24 21:01 300 mg Q12HR SIRISHA Administration Celecoxib 200 mg 10/29/24 17:00 11/05/24 08:59 Celecoxib 200 Mg Capsule PO 200 mg BIDWM SIRISHA Administration Cyclobenzaprine HCl 10 mg 10/30/24 09:00 11/05/24 13:38 Cyclobenzaprine Hcl 10 Mg Tablet PO Not Given TID SIRISHA Dextrose 12.5 gm 10/31/24 16:56 11/04/24 16:05 Dextrose 50% 25 Gm/50 Ml Syringe IV PUSH 12.5 gm PRN PRN Administration Hypoglycemia Protocol Docusate Sodium 100 mg 10/29/24 11:10 Docusate Sodium 100 Mg Capsule PO BID PRN constipation Ezetimibe 10 mg 10/29/24 11:20 11/05/24 09:00 Ezetimibe 10 Mg Tablet PO 10 mg DAILY SIRISHA Administration Gabapentin 400 mg 10/29/24 14:00 11/05/24 13:39 Gabapentin 400 Mg Capsule BY MOUTH 400 mg 0700,1400 SIRISHA Administration Gabapentin 1,200 mg 10/29/24 21:00 11/04/24 20:43 Gabapentin 400 Mg Capsule BY MOUTH 1,200 mg QHS SIRISHA Administration Glucagon 1 mg 10/31/24 16:56 Glucagon For Inj 1 Mg Vial IM PRN PRN Hypoglycemia Protocol Glucose 15 gm 10/31/24 16:56 Glucose Oral Gel 15 Gm Of Glucse In 37.5 Gm Tube PO PRN PRN Hypoglycemia Protocol Dextrose 1,000 mls @ 100 mls/hr 10/31/24 16:56 Dextrose 5% 1,000 Ml IVPB PRN PRN Hypoglycemia Protocol Insulin Aspart 2 - 5 units 10/31/24 17:00 11/05/24 12:09 Insulin Aspart (*Bkc) 100 Units/Ml SUB-Q Not Given TIDWM [facility] Protocol Insulin Aspart 5 units 11/04/24 17:00 11/05/24 12:45 Insulin Aspart (*Bkc) 100 Units/Ml SUB-Q Not Given TIDWM [facility] Insulin Glargine 46 units 10/30/24 09:00 11/05/24 10:11 Insulin Glargine (*Bkc) 100 Units/Ml SUB-Q Not Given DAILY [facility] Insulin Glargine 5 units 11/04/24 21:00 11/04/24 20:44 Insulin Glargine (*Bkc) 100 Units/Ml SUB-Q 5 units HS [facility] Administration Metoprolol Succinate 25 mg 11/02/24 10:30 11/05/24 10:10 Metoprolol Succinate Ext Rel 25 Mg Tabcr PO Not Given DAILY [facility] Ondansetron HCl 4 mg 10/30/24 12:57 11/04/24 18:19 Ondansetron Inj 4 Mg/2 Ml Vial IV PUSH 4 mg Q6H PRN Administration Nausea And Vomiting Pantoprazole Sodium 40 mg 10/30/24 09:00 11/05/24 08:59 Pantoprazole 40 Mg Tablet PO 40 mg QAM SIRISHA Administration Polysaccharide Iron Complex 150 mg 10/31/24 08:00 11/05/24 08:59 Polysaccharide Iron Complex 150 Mg Capsule PO 150 mg DAILY@0800 SIRISHA Administration Rivaroxaban 15 mg 10/31/24 18:00 10/31/24 17:16 Rivaroxaban 15 Mg Tablet PO 15 mg EVENING SIRISHA Administration Radiology Results: ITS Impressions Thoracentesis Ultrasound 11/03/24 11:07 IMPRESSION: 1. Successful ultrasound-guided thoracentesis yielding 1000 mL of yellow fluid. Chest X-Ray 11/05/24 06:20 IMPRESSION: 1. Stable airspace opacities in left mid and lower lung zones, consistent with pneumonia. 2. Small left pleural effusion. 3. Cardiomegaly. Labs Labs: Laboratory Results - last 24 hr 11/04/24 11/04/24 11/04/24 16:00 16:31 20:18 WBC RBC Hgb Hct MCV MCH MCHC RDW Plt Count MPV Sodium Potassium Chloride Carbon Dioxide Anion Gap BUN Creatinine Estim Creat Clear Calc Estimated GFR Glucose POC Capillary Glucose 45 L* 146 H 133 H Calcium Total Bilirubin AST ALT Alkaline Phosphatase Total Protein Albumin 11/05/24 11/05/24 11/05/24 06:05 06:46 07:55 WBC 9.2 RBC 3.07 L Hgb 8.8 L Hct 29.5 L MCV 96.1 MCH 28.7 MCHC 29.8 L RDW 16.4 H Plt Count 193 MPV 10.9 H Sodium 138 Potassium 4.6 Chloride 103 Carbon Dioxide 30 Anion Gap 5 BUN 45 H Creatinine 1.38 H Estim Creat Clear Calc 53 Estimated GFR 41 L Glucose 135 H POC Capillary Glucose 115 H 106 H Calcium 8.4 Total Bilirubin 0.3 AST 18 ALT 14 Alkaline Phosphatase 126 Total Protein 6.0 L Albumin 2.8 L 11/05/24 11:45 WBC RBC Hgb Hct MCV MCH MCHC RDW Plt Count MPV Sodium Potassium Chloride Carbon Dioxide Anion Gap BUN Creatinine Estim Creat Clear Calc Estimated GFR Glucose POC Capillary Glucose 122 H Calcium Total Bilirubin AST ALT Alkaline Phosphatase Total Protein Albumin Hospitalist [facility] Advance Care Plan I have confirmed that the patient's Advanced Care Plan is present, code status is documented, or surrogate decision maker is listed in patient medical record.: Yes Medication Reconciliation I have utilized all available resources to obtain, update and review the patients current medications (includes all prescriptions, OTC, herbals, cannabis, and nutritional supplements).: Yes
[2024-11-05 16:35] LABS: Glucose Point of Care 171 mg/dl (65-105)
[2024-11-05] MEDS: ONDANSETRON INJ 4 MG/2 ML VIAL IV PUSH (16:54)
[2024-11-05] MEDS: INSULIN ASPART (*BKC) 100 UNITS/ML SUB-Q (17:11)
[2024-11-05] MEDS: GABAPENTIN 400 MG CAPSULE 1200 MG BY MOUTH (20:53)
[2024-11-05] MEDS: INSULIN GLARGINE (*BKC) 100 UNITS/ML SUB-Q (20:54)
[2024-11-05] MEDS: HYDROcodone/acetaminophen (*CRX) 10-325 MG TABLET 1 TAB PO (20:55)
[2024-11-05] MEDS: DOCUSATE SODIUM 100 MG CAPSULE PO (21:05)
[2024-11-05 21:27] LABS: Glucose Point of Care 221 mg/dl (65-105)
[2024-11-06] VITALS (9 sets, daily range): BP systolic 95–113; BP diastolic 44–64; PULSE 59–96; RESP 16–20; TEMP 35.8–36.1; O2SAT 93–100
[2024-11-06] MEDS: GABAPENTIN 400 MG CAPSULE BY MOUTH ×2 (05:52→13:48)
[2024-11-06] MEDS: HYDROcodone/acetaminophen (*CRX) 10-325 MG TABLET 1 TAB PO ×2 (06:02→20:39)
[2024-11-06 06:49] LABS: Hematocrit 29.5 % (37.0-47.0); Hemoglobin 8.6 g/dL (12.0-15.0); Mean Corpuscular HGB Conc 29.2 g/dl (32-36); Mean Corpuscular Hemoglobin 28.6 pg (26-34); Mean Platelet Volume 11.1 fl (7.4-10.4); Platelet Count Result 187 k/mm3 (150-375); Red Blood Count 3.01 M/mm3 (4.2-5.4); Red Cell Distribution Width 16.3 % (11.5-14.5); White Blood Count 7.4 K/mm3 (4.5-10.0)
[2024-11-06 07:19] LABS: Alanine Aminotransferase 13 U/L (6-35); Alkaline Phosphatase 128 U/L (38-126); Anion Gap 6 mmol/L (4-12); Aspartate Amino Transferase 20 U/L (14-36); Bilirubin,Total 0.4 mg/dL (0.2-1.3); Blood Urea Nitrogen 40 mg/dL (7-17); Calcium 8.3 mg/dL (8.4-10.2); Carbon Dioxide 29 mmol/L (22-30); Chloride 104 mmol/L (98-107); Estimated CRCL calculation 60 ml/min; Estimated Glomerular Filt Rate 47; Glucose 235 mg/dL (65-110); Potassium 4.7 mmol/L (3.4-5.0); Sodium 139 mmol/L (137-145)
[2024-11-06 08:08] LABS: Glucose Point of Care 222 mg/dl (65-105)
[2024-11-06] MEDS: ASPIRIN 81 MG ENTERIC TABLET PO (08:25)
[2024-11-06] MEDS: BENZONATATE 100 MG CAPSULE 200 MG PO ×3 (08:25→17:20)
[2024-11-06] MEDS: METOPROLOL SUCCINATE EXT REL 25 MG TABCR PO (08:25)
[2024-11-06] MEDS: CEFDINIR 300 MG CAPSULE PO ×2 (08:25→20:41)
[2024-11-06] MEDS: EZETIMIBE 10 MG TABLET PO (08:25)
[2024-11-06] MEDS: ATORVASTATIN 40 MG TABLET 80 MG PO (08:25)
[2024-11-06] MEDS: PANTOPRAZOLE 40 MG TABLET PO (08:25)
[2024-11-06] MEDS: BUMETANIDE 1 MG TABLET PO (08:25)
[2024-11-06] MEDS: POLYSACCHARIDE IRON COMPLEX 150 MG CAPSULE PO (08:25)
[2024-11-06] MEDS: CYCLOBENZAPRINE HCL 10 MG TABLET PO ×3 (08:26→17:20)
[2024-11-06] MEDS: INSULIN GLARGINE (*BKC) 100 UNITS/ML 46 UNITS SUB-Q (08:26)
[2024-11-06] MEDS: CELECOXIB 200 MG CAPSULE PO ×2 (08:26→17:20)
[2024-11-06] MEDS: INSULIN ASPART (*BKC) 100 UNITS/ML SUB-Q ×3 (08:26→12:23)
--- NOTE | 2024-11-06 09:24 | P.PNIM_ITS ---
Progress Note: A&P Assessment and Plan (1) Acute exacerbation of CHF (congestive heart failure): Qualifiers: Heart failure type: unspecified Qualified Code(s): I50.9 - Heart failure, unspecified Code(s): I50.9 - Heart failure, unspecified Status: Inactive Assessment and Plan: Will continue with IV Lasix. Monitor I's and O's. Cardiology consult noted (2) Pneumonia: Qualifiers: Laterality: unspecified laterality Lung location: unspecified part of lung Pneumonia type: due to unspecified organism Qualified Code(s): J18.9 - Pneumonia, unspecified organism Code(s): J18.9 - Pneumonia, unspecified organism Status: Inactive Assessment and Plan: Continue with IV Levaquin. Repeat chest x-ray in the morning (3) Acute non-ST elevation myocardial infarction (NSTEMI): Code(s): I21.4 - Non-ST elevation (NSTEMI) myocardial infarction Status: Inactive Assessment and Plan: Cardiology consult noted. Current treatment. trend troponin Plan Bilateral pleural effusion Repeat chest x-ray on 11/06 shows recurrent large left pleural effusion Patient will undergo PleurX catheter placement Underwent thoracentesis on 11/03 on left side pleural effusion Drained 1 L Pending pleural fluid analysis Will repeat a chest x-ray tomorrow Acute on chronic hypoxemic respiratory From CHF and pneumonia CT showed bilateral pleural effusion with atelectasis and focal pneumonia Currently on 4 L oxygen, baseline is 2 L oxygen. S/P Lasix 40 mg IV b.i.d. and levofloxacin Monitor. 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 CHF exacerbation No echo on file does unable to specify Patient presented with shortness of breath, leg edema orthopnea. He has a CT chest showed plueral effusion bilaterally atelectasis. DC Lasix 40 IV b.i.d. Unable to tolerate Lasix due to low blood pressure Started Bumex 1mg PO QD Cardiology consulted. Pneumonia Resolved CT chest showed a right bundle Blood and sputum culture Nasal MRSA neg DC Levaquin Follow-up closely. UTI Started on cefdinir 300 mg p.o. q.d. Reviewed urine culture which shows Klebsiella pneumoniae Anemia Hemoglobin is 8.6 GI consulted outpatient follow-up for endoscopy and colonoscopy Anemia panel shows iron deficiency anemia. Monitor H and H Type 2 diabetes Blood sugar on target Decrease Lantus 10 units in the night to 5 U and correctional insulin Continue 46U QD Decrease home Lantus Humalog insulin 8U to 5 U Sliding scale insulin with Accu-Cheks. Chronic Garcia for urinary incontinence Discussed voiding trial but patient refuses. Continue Garcia per patient's preference History of stroke Continue aspirin and Lipitor No residual weakness Afib on Metoprolol and DC heparin infusion Xarelto 15 mg PO QD cardiology consulted DVT prophylaxis on heparin infusion. Do not resuscitate Health power of defense attorney, Arnoldo Garcia Subjective Date/time seen: 11/06/24 09:24 Interval history: Repeat chest x-ray shows large left pleural effusion. Patient had a thoracocentesis on 11/03.Discuss with . agrees with the patient needing PleurX catheter. Tomorrow on-call radiologist Dr. Teresa. She believes possibly he can do it. NPO after midnight and Xarelto on hold.Patient is unable to tolerate Lasix due to low blood pressure. Cardiology started the patient on bumetanide 1 mg p.o. q.d.. Will repeat the chest x-ray to follow up on the pleural effusion on left side. Patient blood sugar fluctuates and insulin vivien men has been changed due to hypoglycemia. Target blood sugar around 180's. Review of Systems Review of Systems: All other systems reviewed and negative except as noted in history above. Exam Narrative: General: alert and comfortable Eyes: EOMI, PERRLA ENNT External ears normal, Neck is supple, no masses, Respiratory systems: Air entry decreased, few rales at bases Cardiovascular S1, S2, normal rhythm, no murmur, rub, or gallop; no thrill or palpable murmurs on palpation. Gastrointestinal: soft, non-tender, and non-distended abdomen with no masses; BS present Skin: no rash, lesions, ulcerations, subcutaneous nodules or induration Musculoskeletal: Bilateral lower extremity edema 3+ Neurologic: Alert and oriented x3, non focal Mental Status Exam: normal affect Objective Data Vital Signs Vital Signs: Vital Signs - 24 hr 11/05/24 11:35 11/05/24 12:00 11/05/24 15:27 Temperature 96.0 F L Pulse Rate 95 102 H Respiratory Rate 18 Blood Pressure 101/61 104/59 L Pulse Oximetry 92 Oxygen Delivery Fraction of Inspired Oxygen 11/05/24 16:00 11/05/24 20:00 11/05/24 20:00 Temperature 96.8 F L Pulse Rate 101 H 100 Respiratory Rate 18 Blood Pressure 118/63 Pulse Oximetry 97 Oxygen Delivery Room Air Fraction of Inspired Oxygen 28 11/05/24 20:00 11/06/24 00:00 11/06/24 00:00 Temperature 97 F L Pulse Rate 99 87 59 L Respiratory Rate 16 18 Blood Pressure 100/57 L Pulse Oximetry 96 97 Oxygen Delivery Autopap Fraction of Inspired Oxygen 11/06/24 00:00 11/06/24 04:00 11/06/24 04:00 Temperature 96.8 F L Pulse Rate 95 84 66 Respiratory Rate 18 Blood Pressure 105/59 L Pulse Oximetry 98 Oxygen Delivery Fraction of Inspired Oxygen 11/06/24 08:00 11/06/24 08:00 11/06/24 08:25 Temperature 96.4 F L Pulse Rate 91 96 Respiratory Rate 18 Blood Pressure 95/44 L Pulse Oximetry 96 93 Oxygen Delivery Room Air Fraction of Inspired Oxygen Intake/Output Intake/Output: Intake & Output 11/03/24 11/04/24 11/05/24 11/06/24 23:59 23:59 23:59 23:59 Intake Total 6905 230 2085 390 Output Total 2500 1850 1650 350 Balance -1200 -1130 -340 40 Meds/Results Medications: Active Medications Generic Name Dose Route Start Last Admin Trade Name Freq PRN Reason Stop Dose Admin Hydrocodone Bitart/Acetaminophen 1 tab 10/30/24 05:59 11/06/24 06:02 Hydrocodone/Acetaminophen (*Crx) 10-325 Mg Tablet PO 1 tab BID PRN Administration pain Aspirin 81 mg 10/30/24 09:00 11/06/24 08:25 Aspirin 81 Mg Enteric Tablet PO 81 mg QAM SIRISHA Administration Atorvastatin Calcium 80 mg 10/29/24 11:15 11/06/24 08:25 Atorvastatin 40 Mg Tablet PO 80 mg DAILY SIRISHA Administration Benzonatate 200 mg 10/29/24 17:00 11/06/24 08:25 Benzonatate 100 Mg Capsule PO 200 mg TID SIRISHA Administration Bumetanide 1 mg 11/06/24 09:00 11/06/24 08:25 Bumetanide 1 Mg Tablet PO 1 mg DAILY SIRISHA Administration Cefdinir 300 mg 11/01/24 10:30 11/06/24 08:25 Cefdinir 300 Mg Capsule PO 11/07/24 21:01 300 mg Q12HR SIRISHA Administration Celecoxib 200 mg 10/29/24 17:00 11/06/24 08:26 Celecoxib 200 Mg Capsule PO 200 mg BIDWM SIRISHA Administration Cyclobenzaprine HCl 10 mg 10/30/24 09:00 11/06/24 08:26 Cyclobenzaprine Hcl 10 Mg Tablet PO 10 mg TID SIRISHA Administration Dextrose 12.5 gm 10/31/24 16:56 11/04/24 16:05 Dextrose 50% 25 Gm/50 Ml Syringe IV PUSH 12.5 gm PRN PRN Administration Hypoglycemia Protocol Docusate Sodium 100 mg 10/29/24 11:10 11/05/24 21:05 Docusate Sodium 100 Mg Capsule PO 100 mg BID PRN Administration constipation Ezetimibe 10 mg 10/29/24 11:20 11/06/24 08:25 Ezetimibe 10 Mg Tablet PO 10 mg DAILY SIRISHA Administration Gabapentin 400 mg 10/29/24 14:00 11/06/24 05:52 Gabapentin 400 Mg Capsule BY MOUTH 400 mg 0700,1400 SIRISHA Administration Gabapentin 1,200 mg 10/29/24 21:00 11/05/24 20:53 Gabapentin 400 Mg Capsule BY MOUTH 1,200 mg QHS SIRISHA Administration Glucagon 1 mg 10/31/24 16:56 Glucagon For Inj 1 Mg Vial IM PRN PRN Hypoglycemia Protocol Glucose 15 gm 10/31/24 16:56 Glucose Oral Gel 15 Gm Of Glucse In 37.5 Gm Tube PO PRN PRN Hypoglycemia Protocol Dextrose 1,000 mls @ 100 mls/hr 10/31/24 16:56 Dextrose 5% 1,000 Ml IVPB PRN PRN Hypoglycemia Protocol Insulin Aspart 2 - 5 units 10/31/24 17:00 11/06/24 08:26 Insulin Aspart (*Bkc) 100 Units/Ml SUB-Q 2 units TIDWM SIRISHA Administration Protocol Insulin Aspart 5 units 11/04/24 17:00 11/06/24 08:26 Insulin Aspart (*Bkc) 100 Units/Ml SUB-Q 5 units TIDWM SIRISHA Administration Insulin Glargine 46 units 10/30/24 09:00 11/06/24 08:26 Insulin Glargine (*Bkc) 100 Units/Ml SUB-Q 46 units DAILY SIRISHA Administration Insulin Glargine 5 units 11/04/24 21:00 11/05/24 20:54 Insulin Glargine (*Bkc) 100 Units/Ml SUB-Q 5 units HS SIRISHA Administration Metoprolol Succinate 25 mg 11/02/24 10:30 11/06/24 08:25 Metoprolol Succinate Ext Rel 25 Mg Tabcr PO 25 mg DAILY SIRISHA Administration Ondansetron HCl 4 mg 10/30/24 12:57 11/05/24 16:54 Ondansetron Inj 4 Mg/2 Ml Vial IV PUSH 4 mg Q6H PRN Administration Nausea And Vomiting Pantoprazole Sodium 40 mg 10/30/24 09:00 11/06/24 08:25 Pantoprazole 40 Mg Tablet PO 40 mg QAM SIRISHA Administration Polysaccharide Iron Complex 150 mg 10/31/24 08:00 11/06/24 08:25 Polysaccharide Iron Complex 150 Mg Capsule PO 150 mg DAILY@0800 [facility] Administration Rivaroxaban 15 mg 10/31/24 18:00 10/31/24 17:16 Rivaroxaban 15 Mg Tablet PO 15 mg EVENING SIRISHA Administration Radiology Results: ITS Impressions Thoracentesis Ultrasound 11/03/24 11:07 IMPRESSION: 1. Successful ultrasound-guided thoracentesis yielding 1000 mL of yellow fluid. Chest X-Ray 11/05/24 06:20 IMPRESSION: 1. Stable airspace opacities in left mid and lower lung zones, consistent with pneumonia. 2. Small left pleural effusion. 3. Cardiomegaly. Labs Labs: Laboratory Results - last 24 hr 11/05/24 11/05/24 11/05/24 11:45 16:32 20:36 WBC RBC Hgb Hct MCV MCH MCHC RDW Plt Count MPV Sodium Potassium Chloride Carbon Dioxide Anion Gap BUN Creatinine Estim Creat Clear Calc Estimated GFR Glucose POC Capillary Glucose 122 H 171 H 221 H Calcium Total Bilirubin AST ALT Alkaline Phosphatase Total Protein Albumin 11/06/24 11/06/24 06:10 07:39 WBC 7.4 RBC 3.01 L Hgb 8.6 L Hct 29.5 L MCV 98.0 MCH 28.6 MCHC 29.2 L RDW 16.3 H Plt Count 187 MPV 11.1 H Sodium 139 Potassium 4.7 Chloride 104 Carbon Dioxide 29 Anion Gap 6 BUN 40 H Creatinine 1.21 H Estim Creat Clear Calc 60 Estimated GFR 47 L Glucose 235 H POC Capillary Glucose 222 H Calcium 8.3 L Total Bilirubin 0.4 AST 20 ALT 13 Alkaline Phosphatase 128 H Total Protein 6.0 L Albumin 3.0 L Hospitalist MIPS Advance Care Plan I have confirmed that the patient's Advanced Care Plan is present, code status is documented, or surrogate decision maker is listed in patient medical record.: Yes Medication Reconciliation I have utilized all available resources to obtain, update and review the patients current medications (includes all prescriptions, OTC, herbals, cannabis, and nutritional supplements).: Yes
--- NOTE | 2024-11-06 09:25 | PM.PNCARD ---
Progress Note: A&P Assessment and Plan (1) CHF (congestive heart failure): Code(s): I50.9 - Heart failure, unspecified Status: Acute Plan 1. Acute on chronic heart failure with reduced LVEF. Last LVEF 45% per [facility] notes. Echocardiogram this admission shows LVEF 25-30%. 2. Elevated troponins. Troponin elevation likely due to demand ischemia, unlikely ACS. 3. Acute on chronic hypoxic respiratory failure 4. Pneumonia 5. 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 Has been medically managed. 6. Paroxysmal atrial fibrillation 7. Diabetes mellitus 8. History of seizure disorder 9. PVD 10. History of PE 11. CKD: Creatinine down 1.2 12. Medication noncompliance. 13. Anemia PLAN -S/p thoracentesis 11/03 with removal of 1 L of fluid. -continue Bumex at 1 mg daily -Continue Metoprolol. Unable to advance heart failure GDMT at this time to avoid hypotension. Seems better today. DC planning -Continue ASA, Atorvastatin, Zetia for CAD. -Continue Xarelto 15mg once daily for stroke risk reduction for AFIB Primary laborer sawmill is Dr. Rose Conn at [facility], last visit was in July 2024. Patient to follow up with her primary laborer sawmill after hospital discharge. Recommendations and plan discussed with Hospitalist. Subjective Date/time seen: 11/06/24 09:25 Interval history: Reason for visit: CHF HPI: We are consulted for CHF, elevated troponin. This is a 48 year old female who presented to [facility] with shortness of breath and cough for the past month. Apparently was recently hospitalized at [facility] for similar symptoms. On 2L of O2 at home. Workup at [facility] shows troponins of 755, 700. Troponin here 0.373. NT pro BNP of 10,650. Chest CTA with bilateral pleural effusions, possible pneumonia. EKG with sinus rhythm, LVH. No prior echocardiogram in our system. Upon my evaluation, patient is quite sleepy. Reports improvement in her shortness of breath. No chest pain. Personally reviewed [facility] records and noted as below: Has history of seizure disorder, CHF, DM, PVD, history of PE, PAF, CKD, medication noncompliance. Has known diffuse MVCAD, which was discovered on [facility] 2021, not a candidate for bypass surgery due to unsuitable anatomy. Admitted to [facility] in September for DKA, NSTEMI, flu +. Was intubated from 09/15 to 09/22, Workup of altered mental status negative, including brain MRI, EEG. 09/13 blood cultures positive for MSSA bacteremia. DEMI negative for valvular heart disease. NSTEMI thought to be due to demand ischemia. LVEF noted to be 45%. Primary laborer sawmill is Dr. Rose Conn at [facility], last visit was in July 2024. Date of service 10/31: No chest pain today. Shortness of breath improving. Still has lower extremity swellings. Continues to have paroxysmal nocturnal dyspnea and orthopnea. Date of service 11/01: Still feels like she gets winded at times. Still with lower extremity edema. Date of service 11/02: Still with shortness of breath, cough; feels like it may be slightly better. Lower extremity edema improving. Date of service 11/03: Shortness of breath has significantly improved. No further orthopnea. Lower extremity swelling almost resolved. Date of service 11/04: Underwent thoracentesis yesterday. Still reporting a cough. Lower extremity swelling has significantly improved, still some edema this morning. Date of service 11/05/2024: Still feels cough and congestion but less swelling and less short of breath. Feels ?shaky ?. No chest pain Date of service 11/06/2024: Feels better today. Less weak. No chest pain. Cough is still present but better. Swelling improved Review of Systems Review of Systems: All systems reviewed & are unremarkable except as noted in HPI and below (HPI) Cardiovascular: Cardiovascular: Reports as per HPI and Denies chest pain Respiratory: Respiratory: Reports as per HPI and Reports cough Gastrointestinal: Gastrointestinal: Denies abdominal pain Exam Const: General: comfortable and no acute distress HENMT: Mouth: Yes moist mucous membranes Eyes: General: appearance normal, both eyes and all related structures Sclera: sclerae normal Neck: Neck: supple and no JVD Resp: Effort & Inspection: normal respiratory effort Auscultation: wheezes and diminished lung sounds Cardio: Rate: regular rate Rhythm: regular rhythm Heart sounds: no murmurs GI: GI Palp: Yes Soft to palpation Skin: General skin exam: normal color Neuro: Speech: normal speech Extrem: General: edema and pedal edema Psych: Mental Status: mental status grossly normal Affect: normal affect Objective Data Vital Signs Vital Signs: Vital Signs - 24 hr 11/05/24 11:35 11/05/24 12:00 11/05/24 15:27 Temperature 35.6 C L Pulse Rate 95 102 H Respiratory Rate 18 Blood Pressure 101/61 104/59 L Pulse Oximetry 92 Oxygen Delivery Fraction of Inspired Oxygen 11/05/24 16:00 11/05/24 20:00 11/05/24 20:00 Temperature 36.0 C L Pulse Rate 101 H 100 Respiratory Rate 18 Blood Pressure 118/63 Pulse Oximetry 97 Oxygen Delivery Room Air Fraction of Inspired Oxygen 28 11/05/24 20:00 11/06/24 00:00 11/06/24 00:00 Temperature 36.1 C L Pulse Rate 99 87 59 L Respiratory Rate 16 18 Blood Pressure 100/57 L Pulse Oximetry 96 97 Oxygen Delivery Autopap Fraction of Inspired Oxygen 11/06/24 00:00 11/06/24 04:00 11/06/24 04:00 Temperature 36.0 C L Pulse Rate 95 84 66 Respiratory Rate 18 Blood Pressure 105/59 L Pulse Oximetry 98 Oxygen Delivery Fraction of Inspired Oxygen 11/06/24 08:00 11/06/24 08:00 11/06/24 08:25 Temperature 35.8 C L Pulse Rate 91 96 Respiratory Rate 18 Blood Pressure 95/44 L Pulse Oximetry 96 93 Oxygen Delivery Room Air Fraction of Inspired Oxygen Intake/Output Intake/Output: Intake & Output 11/03/24 11/04/24 11/05/24 11/06/24 23:59 23:59 23:59 23:59 Intake Total 7584 462 8313 390 Output Total 9137 1850 1650 350 Balance -1200 -1130 -340 40 Meds/Results Medications: Active Medications Generic Name Dose Route Start Last Admin Trade Name Freq PRN Reason Stop Dose Admin Hydrocodone Bitart/Acetaminophen 1 tab 10/30/24 05:59 11/06/24 06:02 Hydrocodone/Acetaminophen (*Crx) 10-325 Mg Tablet PO 1 tab BID PRN Administration pain Aspirin 81 mg 10/30/24 09:00 11/06/24 08:25 Aspirin 81 Mg Enteric Tablet PO 81 mg QAM SIRISHA Administration Atorvastatin Calcium 80 mg 10/29/24 11:15 11/06/24 08:25 Atorvastatin 40 Mg Tablet PO 80 mg DAILY SIRISHA Administration Benzonatate 200 mg 10/29/24 17:00 11/06/24 08:25 Benzonatate 100 Mg Capsule PO 200 mg TID SIRISHA Administration Bumetanide 1 mg 11/06/24 09:00 11/06/24 08:25 Bumetanide 1 Mg Tablet PO 1 mg DAILY SIRISHA Administration Cefdinir 300 mg 11/01/24 10:30 11/06/24 08:25 Cefdinir 300 Mg Capsule PO 11/07/24 21:01 300 mg Q12HR SIRISHA Administration Celecoxib 200 mg 10/29/24 17:00 11/06/24 08:26 Celecoxib 200 Mg Capsule PO 200 mg BIDWM SIRISHA Administration Cyclobenzaprine HCl 10 mg 10/30/24 09:00 11/06/24 08:26 Cyclobenzaprine Hcl 10 Mg Tablet PO 10 mg TID SIRISHA Administration Dextrose 12.5 gm 10/31/24 16:56 11/04/24 16:05 Dextrose 50% 25 Gm/50 Ml Syringe IV PUSH 12.5 gm PRN PRN Administration Hypoglycemia Protocol Docusate Sodium 100 mg 10/29/24 11:10 11/05/24 21:05 Docusate Sodium 100 Mg Capsule PO 100 mg BID PRN Administration constipation Ezetimibe 10 mg 10/29/24 11:20 11/06/24 08:25 Ezetimibe 10 Mg Tablet PO 10 mg DAILY SIRISHA Administration Gabapentin 400 mg 10/29/24 14:00 11/06/24 05:52 Gabapentin 400 Mg Capsule BY MOUTH 400 mg 0700,1400 SIRISHA Administration Gabapentin 1,200 mg 10/29/24 21:00 11/05/24 20:53 Gabapentin 400 Mg Capsule BY MOUTH 1,200 mg QHS SIRISHA Administration Glucagon 1 mg 10/31/24 16:56 Glucagon For Inj 1 Mg Vial IM PRN PRN Hypoglycemia Protocol Glucose 15 gm 10/31/24 16:56 Glucose Oral Gel 15 Gm Of Glucse In 37.5 Gm Tube PO PRN PRN Hypoglycemia Protocol Dextrose 1,000 mls @ 100 mls/hr 10/31/24 16:56 Dextrose 5% 1,000 Ml IVPB PRN PRN Hypoglycemia Protocol Insulin Aspart 2 - 5 units 10/31/24 17:00 11/06/24 08:26 Insulin Aspart (*Bkc) 100 Units/Ml SUB-Q 2 units TIDWM SIRISHA Administration Protocol Insulin Aspart 5 units 11/04/24 17:00 11/06/24 08:26 Insulin Aspart (*Bkc) 100 Units/Ml SUB-Q 5 units TIDWM SIRISHA Administration Insulin Glargine 46 units 10/30/24 09:00 11/06/24 08:26 Insulin Glargine (*Bkc) 100 Units/Ml SUB-Q 46 units DAILY SIRISHA Administration Insulin Glargine 5 units 11/04/24 21:00 11/05/24 20:54 Insulin Glargine (*Bkc) 100 Units/Ml SUB-Q 5 units HS SIRISHA Administration Metoprolol Succinate 25 mg 11/02/24 10:30 11/06/24 08:25 Metoprolol Succinate Ext Rel 25 Mg Tabcr PO 25 mg DAILY SIRISHA Administration Ondansetron HCl 4 mg 10/30/24 12:57 11/05/24 16:54 Ondansetron Inj 4 Mg/2 Ml Vial IV PUSH 4 mg Q6H PRN Administration Nausea And Vomiting Pantoprazole Sodium 40 mg 10/30/24 09:00 11/06/24 08:25 Pantoprazole 40 Mg Tablet PO 40 mg QAM SIRISHA Administration Polysaccharide Iron Complex 150 mg 10/31/24 08:00 11/06/24 08:25 Polysaccharide Iron Complex 150 Mg Capsule PO 150 mg DAILY@0800 [facility] Administration Rivaroxaban 15 mg 10/31/24 18:00 10/31/24 17:16 Rivaroxaban 15 Mg Tablet PO 15 mg EVENING SIRISHA Administration Radiology Results: ITS Impressions Thoracentesis Ultrasound 11/03/24 11:07 IMPRESSION: 1. Successful ultrasound-guided thoracentesis yielding 1000 mL of yellow fluid. Chest X-Ray 11/05/24 06:20 IMPRESSION: 1. Stable airspace opacities in left mid and lower lung zones, consistent with pneumonia. 2. Small left pleural effusion. 3. Cardiomegaly. Labs Labs: Laboratory Results - last 24 hr 11/05/24 11/05/24 11/05/24 11:45 16:32 20:36 WBC RBC Hgb Hct MCV MCH MCHC RDW Plt Count MPV Sodium Potassium Chloride Carbon Dioxide Anion Gap BUN Creatinine Estim Creat Clear Calc Estimated GFR Glucose POC Capillary Glucose 122 H 171 H 221 H Calcium Total Bilirubin AST ALT Alkaline Phosphatase Total Protein Albumin 11/06/24 11/06/24 06:10 07:39 WBC 7.4 RBC 3.01 L Hgb 8.6 L Hct 29.5 L MCV 98.0 MCH 28.6 MCHC 29.2 L RDW 16.3 H Plt Count 187 MPV 11.1 H Sodium 139 Potassium 4.7 Chloride 104 Carbon Dioxide 29 Anion Gap 6 BUN 40 H Creatinine 1.21 H Estim Creat Clear Calc 60 Estimated GFR 47 L Glucose 235 H POC Capillary Glucose 222 H Calcium 8.3 L Total Bilirubin 0.4 AST 20 ALT 13 Alkaline Phosphatase 128 H Total Protein 6.0 L Albumin 3.0 L
[2024-11-06 12:02] LABS: Glucose Point of Care 110 mg/dl (65-105)
[2024-11-06 17:09] LABS: Glucose Point of Care 105 mg/dl (65-105)
[2024-11-06] MEDS: GABAPENTIN 400 MG CAPSULE 1200 MG BY MOUTH (20:39)
[2024-11-06] MEDS: INSULIN GLARGINE (*BKC) 100 UNITS/ML SUB-Q (20:41)
[2024-11-06 21:21] LABS: Glucose Point of Care 163 mg/dl (65-105)
[2024-11-07] VITALS (14 sets, daily range): BP systolic 90–130; BP diastolic 50–70; PULSE 72–101; RESP 16–20; TEMP 36–36.6; O2SAT 93–100
[2024-11-07 06:28] LABS: Hematocrit 27.7 % (37.0-47.0); Hemoglobin 8.1 g/dL (12.0-15.0); Mean Corpuscular HGB Conc 29.2 g/dl (32-36); Mean Corpuscular Hemoglobin 28.4 pg (26-34); Mean Corpuscular Volume 97.2 fl (80-100); Mean Platelet Volume 10.9 fl (7.4-10.4); Platelet Count Result 201 k/mm3 (150-375); Red Blood Count 2.85 M/mm3 (4.2-5.4); Red Cell Distribution Width 16.2 % (11.5-14.5); White Blood Count 8.1 K/mm3 (4.5-10.0)
[2024-11-07 06:44] LABS: Alanine Aminotransferase 13 U/L (6-35); Albumin Level 2.8 g/dL (3.5-5.1); Alkaline Phosphatase 119 U/L (38-126); Anion Gap 6 mmol/L (4-12); Aspartate Amino Transferase 18 U/L (14-36); Bilirubin,Total 0.3 mg/dL (0.2-1.3); Blood Urea Nitrogen 43 mg/dL (7-17); Calcium 8.3 mg/dL (8.4-10.2); Carbon Dioxide 27 mmol/L (22-30); Chloride 105 mmol/L (98-107); Estimated CRCL calculation 55 ml/min; Estimated Glomerular Filt Rate 43; Glucose 243 mg/dL (65-110); Potassium 4.4 mmol/L (3.4-5.0); Sodium 138 mmol/L (137-145)
[2024-11-07 07:50] LABS: Glucose Point of Care 226 mg/dl (65-105)
[2024-11-07] MEDS: BENZONATATE 100 MG CAPSULE 200 MG PO ×3 (08:05→16:37)
[2024-11-07] MEDS: EZETIMIBE 10 MG TABLET PO (08:06)
[2024-11-07] MEDS: CELECOXIB 200 MG CAPSULE PO ×2 (08:06→16:37)
[2024-11-07] MEDS: CEFDINIR 300 MG CAPSULE PO ×2 (08:06→20:57)
[2024-11-07] MEDS: GABAPENTIN 400 MG CAPSULE BY MOUTH ×2 (08:06→13:17)
[2024-11-07] MEDS: ATORVASTATIN 40 MG TABLET 80 MG PO (08:07)
[2024-11-07] MEDS: CYCLOBENZAPRINE HCL 10 MG TABLET PO ×3 (08:07→16:37)
[2024-11-07] MEDS: POLYSACCHARIDE IRON COMPLEX 150 MG CAPSULE PO (08:07)
[2024-11-07] MEDS: PANTOPRAZOLE 40 MG TABLET PO (08:08)
[2024-11-07 09:30] LABS: Glucose Point of Care 174 mg/dl (65-105)
--- NOTE | 2024-11-07 09:35 | P.PNIM_ITS ---
Progress Note: A&P Assessment and Plan (1) Acute exacerbation of CHF (congestive heart failure): Qualifiers: Heart failure type: unspecified Qualified Code(s): I50.9 - Heart failure, unspecified Code(s): I50.9 - Heart failure, unspecified Status: Inactive Assessment and Plan: Will continue with IV Lasix. Monitor I's and O's. Cardiology consult noted (2) Pneumonia: Qualifiers: Laterality: unspecified laterality Lung location: unspecified part of lung Pneumonia type: due to unspecified organism Qualified Code(s): J18.9 - Pneumonia, unspecified organism Code(s): J18.9 - Pneumonia, unspecified organism Status: Inactive Assessment and Plan: Continue with IV Levaquin. Repeat chest x-ray in the morning (3) Acute non-ST elevation myocardial infarction (NSTEMI): Code(s): I21.4 - Non-ST elevation (NSTEMI) myocardial infarction Status: Inactive Assessment and Plan: Cardiology consult noted. Current treatment. trend troponin Plan Bilateral pleural effusion Repeat chest x-ray on 11/06 shows recurrent large left pleural effusion Patient will undergo PleurX catheter placement Underwent thoracentesis on 11/03 on left side pleural effusion Drained 1 L Pending pleural fluid analysis Will repeat a chest x-ray tomorrow Acute on chronic hypoxemic respiratory From CHF and pneumonia CT showed bilateral pleural effusion with atelectasis and focal pneumonia Currently on 4 L oxygen, baseline is 2 L oxygen. S/P Lasix 40 mg IV b.i.d. and levofloxacin Monitor. 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 CHF exacerbation No echo on file does unable to specify Patient presented with shortness of breath, leg edema orthopnea. He has a CT chest showed plueral effusion bilaterally atelectasis. DC Lasix 40 IV b.i.d. Started midodrine 5 mg p.o. t.i.d. Unable to tolerate Lasix due to low blood pressure Started Bumex 1mg PO QD Cardiology consulted. Pneumonia Resolved CT chest showed a right bundle Blood and sputum culture Nasal MRSA neg DC Levaquin Follow-up closely. UTI Started on cefdinir 300 mg p.o. q.d. Reviewed urine culture which shows Klebsiella pneumoniae Anemia Hemoglobin is 8.6 GI consulted outpatient follow-up for endoscopy and colonoscopy Anemia panel shows iron deficiency anemia. Monitor H and H Type 2 diabetes Blood sugar on target Decrease Lantus 10 units in the night to 5 U and correctional insulin Continue 46U QD Decrease home Lantus Humalog insulin 8U to 5 U Sliding scale insulin with Accu-Cheks. Chronic Garcia for urinary incontinence Discussed voiding trial but patient refuses. Continue Garcia per patient's preference History of stroke Continue aspirin and Lipitor No residual weakness Afib on Metoprolol and DC heparin infusion Xarelto 15 mg PO QD cardiology consulted Seizures Reports anxiety will trigger Never been on medication Ordered CT scan Seizure precaution Neurology consulted DVT prophylaxis on heparin infusion. Do not resuscitate Health power of collections attorney, Arnoldo Garcia Subjective Date/time seen: 11/07/24 09:35 Interval history: Patient blood pressure in 90s to 100 over 50-60. Unable to diuresis is her well due to soft blood pressure. Initially cardiology discontinued Lasix 40 mg b.i.d . to Bumex 1 mg p.o. q.d.. Patient had initial thoracentesis on 11/03 for left- sided pleural effusion. Unfortunately patient concurrent chest x-ray on 11/06 shows large left-sided pleural effusion. I spoke to Dr. Rowley about PleurX catheter but after having a long conversation with Dr. Ramos I believe patient might not need PleurX cath. The pleural fluid analysis pending but possible tra nsudate. During the patient evaluation she wants the pleural fluid to be tapped. Patient will undergo thoracentesis today. Will add midodrine 5 mg p.o. t.i.d. and explained the pros and cons of the medication. Patient does not want to be intubated but she believes she can leave for long time does not want hospice/palliative care. As per patient, her outpatient bonding machine operator Dr. Conn said there is not much can be done from cardiology perspective. Recent echocardiogram shows 30-35% left ventricular ejection fraction. As mentioned previously patient has lately difficulty in controlling her blood sugars. Her target blood sugar in the hospital will be 180's. Nurse called me around 10:00 a.m. and informed patient has gone to thoracentesis but before going to the department she had a breif episode of witnessed seizure. As per patient when she gets stressed ,she gets seizures .Currently she has not been treated for seizures. Asper nurse patient reported doing well and gone for thoracentesis. I evaluated the patient after she returned. Patient reports she gets seizures whenever she gets anxious. She has never been treated with the antiepileptic medications. Will do chest x-ray to rule out for possible aspiration and do CT scan of the head and will consult Neurology. Patient is willing to talk to hospice and palliative care. Review of Systems Review of Systems: All other systems reviewed and negative except as noted in history above. Exam Narrative: General: alert and comfortable Eyes: EOMI, PERRLA ENNT External ears normal, Neck is supple, no masses, Respiratory systems: Air entry decreased, few rales at bases Cardiovascular S1, S2, normal rhythm, no murmur, rub, or gallop; no thrill or palpable murmurs on palpation. Gastrointestinal: soft, non-tender, and non-distended abdomen with no masses; BS present Skin: no rash, lesions, ulcerations, subcutaneous nodules or induration Musculoskeletal: Bilateral lower extremity edema 3+ Neurologic: Alert and oriented x3, non focal Mental Status Exam: normal affect Objective Data Vital Signs Vital Signs: Vital Signs - 24 hr 11/06/24 12:00 11/06/24 12:00 11/06/24 16:00 Temperature 96.5 F L Pulse Rate 86 88 84 Respiratory Rate 18 Blood Pressure 100/50 L Pulse Oximetry 97 Oxygen Delivery 11/06/24 17:01 11/06/24 17:14 11/06/24 20:00 Temperature 96.7 F L 96.8 F L Pulse Rate 67 89 Respiratory Rate 20 18 Blood Pressure 98/64 L 98/64 L 113/60 Pulse Oximetry 100 95 Oxygen Delivery 11/06/24 20:00 11/07/24 00:00 11/07/24 00:05 Temperature Pulse Rate 89 88 79 Respiratory Rate 18 Blood Pressure Pulse Oximetry 97 Oxygen Delivery Autopap 11/07/24 03:53 11/07/24 04:00 11/07/24 07:53 Temperature 96.8 F L Pulse Rate 93 89 101 H Respiratory Rate 20 Blood Pressure 90/62 L 105/54 L Pulse Oximetry 93 100 Oxygen Delivery Intake/Output Intake/Output: Intake & Output 11/04/24 11/05/24 11/06/24 11/07/24 23:59 23:59 23:59 23:59 Intake Total 720 1310 1180 0 Output Total 1850 1650 850 400 Balance -1130 -340 330 -400 Meds/Results Medications: Active Medications Generic Name Dose Route Start Last Admin Trade Name Freq PRN Reason Stop Dose Admin Hydrocodone Bitart/Acetaminophen 1 tab 10/30/24 05:59 11/06/24 20:39 Hydrocodone/Acetaminophen (*Crx) 10-325 Mg Tablet PO 1 tab BID PRN Administration pain Aspirin 81 mg 10/30/24 09:00 11/07/24 08:07 Aspirin 81 Mg Enteric Tablet [facility] [place] [facility] [place]orvastatin Calcium 80 mg 10/29/24 11:15 11/07/24 08:07 Atorvastatin 40 Mg Tablet PO 80 mg DAILY SIRISHA Administration Benzonatate 200 mg 10/29/24 17:00 11/07/24 08:05 Benzonatate 100 Mg Capsule PO 200 mg TID SIRISHA Administration Bumetanide 1 mg 11/06/24 09:00 11/07/24 08:02 Bumetanide 1 Mg Tablet PO Not Given DAILY SIRISHA Cefdinir 300 mg 11/01/24 10:30 11/07/24 08:06 Cefdinir 300 Mg Capsule PO 11/07/24 21:01 300 mg Q12HR SIRISHA Administration Celecoxib 200 mg 10/29/24 17:00 11/07/24 08:06 Celecoxib 200 Mg Capsule PO 200 mg BIDWM SIRISHA Administration Cyclobenzaprine HCl 10 mg 10/30/24 09:00 11/07/24 08:07 Cyclobenzaprine Hcl 10 Mg Tablet PO 10 mg TID SIRISHA Administration Dextrose 12.5 gm 10/31/24 16:56 11/04/24 16:05 Dextrose 50% 25 Gm/50 Ml Syringe IV PUSH 12.5 gm PRN PRN Administration Hypoglycemia Protocol Docusate Sodium 100 mg 10/29/24 11:10 11/05/24 21:05 Docusate Sodium 100 Mg Capsule PO 100 mg BID PRN Administration constipation Ezetimibe 10 mg 10/29/24 11:20 11/07/24 08:06 Ezetimibe 10 Mg Tablet PO 10 mg DAILY SIRISHA Administration Gabapentin 400 mg 10/29/24 14:00 11/07/24 08:06 Gabapentin 400 Mg Capsule BY MOUTH 400 mg 0700,1400 SIRISHA Administration Gabapentin 1,200 mg 10/29/24 21:00 11/06/24 20:39 Gabapentin 400 Mg Capsule BY MOUTH 1,200 mg QHS SIRISHA Administration Glucagon 1 mg 10/31/24 16:56 Glucagon For Inj 1 Mg Vial IM PRN PRN Hypoglycemia Protocol Glucose 15 gm 10/31/24 16:56 Glucose Oral Gel 15 Gm Of Glucse In 37.5 Gm Tube PO PRN PRN Hypoglycemia Protocol Dextrose 1,000 mls @ 100 mls/hr 10/31/24 16:56 Dextrose 5% 1,000 Ml IVPB PRN PRN Hypoglycemia Protocol Insulin Aspart 2 - 5 units 10/31/24 17:00 11/07/24 08:01 Insulin Aspart (*Bkc) 100 Units/Ml SUB-Q Not Given TIDWM [facility] Protocol Insulin Aspart 5 units 11/04/24 17:00 11/07/24 08:02 Insulin Aspart (*Bkc) 100 Units/Ml SUB-Q Not Given TIDWM [facility] Insulin Glargine 46 units 10/30/24 09:00 11/07/24 08:00 Insulin Glargine (*Bkc) 100 Units/Ml SUB-Q Not Given DAILY [facility] Insulin Glargine 5 units 11/04/24 21:00 11/06/24 20:41 Insulin Glargine (*Bkc) 100 Units/Ml SUB-Q 5 units HS [facility] Administration Metoprolol Succinate 25 mg 11/02/24 10:30 11/07/24 08:02 Metoprolol Succinate Ext Rel 25 Mg Tabcr PO Not Given DAILY [facility] Midodrine 5 mg 11/07/24 09:00 Midodrine Hcl 2.5 Mg Tablet PO TID [facility] Ondansetron HCl 4 mg 10/30/24 12:57 11/05/24 16:54 Ondansetron Inj 4 Mg/2 Ml Vial IV PUSH 4 mg Q6H PRN Administration Nausea And Vomiting Pantoprazole Sodium 40 mg 10/30/24 09:00 11/07/24 08:08 Pantoprazole 40 Mg Tablet PO 40 mg QAM [facility] Administration Polysaccharide Iron Complex 150 mg 10/31/24 08:00 11/07/24 08:07 Polysaccharide Iron Complex 150 Mg Capsule PO 150 mg DAILY@0800 SIRISHA Administration Rivaroxaban 15 mg 10/31/24 18:00 10/31/24 17:16 Rivaroxaban 15 Mg Tablet PO 15 mg EVENING SIRISHA Administration Radiology Results: ITS Impressions Thoracentesis Ultrasound 11/03/24 11:07 IMPRESSION: 1. Successful ultrasound-guided thoracentesis yielding 1000 mL of yellow fluid. Chest X-Ray 11/06/24 09:36 IMPRESSION: Increasing left-sided pleural effusion with mild pulmonary vascular congestion. Labs Labs: Laboratory Results - last 24 hr 11/06/24 11/06/24 11/06/24 11:57 16:40 20:35 WBC RBC Hgb Hct MCV MCH MCHC RDW Plt Count MPV Sodium Potassium Chloride Carbon Dioxide Anion Gap BUN Creatinine Estim Creat Clear Calc Estimated GFR Glucose POC Capillary Glucose 110 H 105 163 H Calcium Total Bilirubin AST ALT Alkaline Phosphatase Total Protein Albumin 11/07/24 11/07/24 11/07/24 06:10 07:42 09:24 WBC 8.1 RBC 2.85 L Hgb 8.1 L Hct 27.7 L MCV 97.2 MCH 28.4 MCHC 29.2 L RDW 16.2 H Plt Count 201 MPV 10.9 H Sodium 138 Potassium 4.4 Chloride 105 Carbon Dioxide 27 Anion Gap 6 BUN 43 H Creatinine 1.32 H Estim Creat Clear Calc 55 Estimated GFR 43 L Glucose 243 H POC Capillary Glucose 226 H 174 H Calcium 8.3 L Total Bilirubin 0.3 AST 18 ALT 13 Alkaline Phosphatase 119 Total Protein 6.0 L Albumin 2.8 L Hospitalist MIPS Advance Care Plan I have confirmed that the patient's Advanced Care Plan is present, code status is documented, or surrogate decision maker is listed in patient medical record.: Yes Medication Reconciliation I have utilized all available resources to obtain, update and review the patients current medications (includes all prescriptions, OTC, herbals, cannabis, and nutritional supplements).: Yes
[2024-11-07] MEDS: HYDROcodone/acetaminophen (*CRX) 10-325 MG TABLET 1 TAB PO ×2 (11:24→21:04)
--- NOTE | 2024-11-07 11:33 | PCOTNOTE ---
The patient treatment was not able to be completed. Patient reports she is to sore post thoracentesis. Will plan to continue treatment per plan of care.
[2024-11-07 11:41] LABS: Glucose Point of Care 148 mg/dl (65-105)
[2024-11-07] MEDS: MIDODRINE HCL 2.5 MG TABLET 5 MG PO ×2 (12:08→16:37)
[2024-11-07] MEDS: DOCUSATE SODIUM 100 MG CAPSULE PO (12:28)
[2024-11-07] MEDS: INSULIN ASPART (*BKC) 100 UNITS/ML SUB-Q ×3 (12:42→16:39)
[2024-11-07 16:32] LABS: Glucose Point of Care 395 mg/dl (65-105)
[2024-11-07 16:32] LABS: Glucose Point of Care 229 mg/dl (65-105)
[2024-11-07] MEDS: INSULIN GLARGINE (*BKC) 100 UNITS/ML SUB-Q (20:58)
[2024-11-07] MEDS: GABAPENTIN 400 MG CAPSULE 1200 MG BY MOUTH (20:58)
[2024-11-07 21:35] LABS: Glucose Point of Care 104 mg/dl (65-105)
[2024-11-08 00:02] VITALS: PULSE 91
[2024-11-08 04:03] VITALS: PULSE 87
[2024-11-08 05:45] VITALS: BP 125/58; PULSE 91; RESP 18; TEMP 36.2; O2SAT 98
[2024-11-08 06:03] LABS: Hematocrit 29.3 % (37.0-47.0); Hemoglobin 8.6 g/dL (12.0-15.0); Mean Corpuscular HGB Conc 29.4 g/dl (32-36); Mean Corpuscular Hemoglobin 28.5 pg (26-34); Mean Platelet Volume 10.8 fl (7.4-10.4); Platelet Count Result 216 k/mm3 (150-375); Red Blood Count 3.02 M/mm3 (4.2-5.4); Red Cell Distribution Width 16.5 % (11.5-14.5); White Blood Count 6.6 K/mm3 (4.5-10.0)
[2024-11-08 06:14] LABS: Alanine Aminotransferase 13 U/L (6-35); Albumin Level 2.8 g/dL (3.5-5.1); Alkaline Phosphatase 122 U/L (38-126); Anion Gap 5 mmol/L (4-12); Aspartate Amino Transferase 20 U/L (14-36); Bilirubin,Total 0.3 mg/dL (0.2-1.3); Blood Urea Nitrogen 43 mg/dL (7-17); Calcium 8.4 mg/dL (8.4-10.2); Carbon Dioxide 29 mmol/L (22-30); Chloride 105 mmol/L (98-107); Estimated CRCL calculation 57 ml/min; Estimated Glomerular Filt Rate 44; Glucose 213 mg/dL (65-110); Potassium 4.9 mmol/L (3.4-5.0); Sodium 139 mmol/L (137-145)
[2024-11-08] MEDS: GABAPENTIN 400 MG CAPSULE BY MOUTH ×2 (06:14→13:28)
[2024-11-08 07:36] LABS: Glucose Point of Care 208 mg/dl (65-105)
[2024-11-08 08:00] VITALS: PULSE 96
[2024-11-08] MEDS: CELECOXIB 200 MG CAPSULE PO (09:17)
[2024-11-08] MEDS: ASPIRIN 81 MG ENTERIC TABLET PO (09:18)
[2024-11-08] MEDS: METOPROLOL SUCCINATE EXT REL 25 MG TABCR PO (09:18)
[2024-11-08] MEDS: CYCLOBENZAPRINE HCL 10 MG TABLET PO ×2 (09:24→12:41)
[2024-11-08] MEDS: PANTOPRAZOLE 40 MG TABLET PO (09:24)
[2024-11-08] MEDS: EZETIMIBE 10 MG TABLET PO (09:24)
[2024-11-08] MEDS: ATORVASTATIN 40 MG TABLET 80 MG PO (09:25)
[2024-11-08] MEDS: BENZONATATE 100 MG CAPSULE 200 MG PO ×2 (09:25→12:42)
[2024-11-08] MEDS: POLYSACCHARIDE IRON COMPLEX 150 MG CAPSULE PO (09:25)
[2024-11-08] MEDS: BUMETANIDE 1 MG TABLET PO (09:29)
[2024-11-08] MEDS: MIDODRINE HCL 2.5 MG TABLET 5 MG PO ×2 (09:30→12:42)
[2024-11-08] MEDS: INSULIN ASPART (*BKC) 100 UNITS/ML SUB-Q ×3 (09:34→12:18)
[2024-11-08] MEDS: INSULIN GLARGINE (*BKC) 100 UNITS/ML 46 UNITS SUB-Q (09:50)
--- NOTE | 2024-11-08 10:47 | WPDNEUROLOGY ---
Neurology EEG Report General Information Date of Study: 11/08/24 TEST EEG DIAGNOSIS Possible seizures CONDITION OF RECORDING awake ,drowsy and asleep. EEG NUMBER 25-60 CLINICAL HISTORY patient reports she had an episode of seizure-like activity yesterday morning. She used to be on anti seizure medication but was taken off them about 2 years ago. She also stated she has these episodes only when she cold or stressed out. EEG DESCRIPTION basic resting occipital frequency consists of low to medium voltage 8 to 10 hertz per 2nd alpha admixed with low-voltage 15 to 18 hertz per 2nd beta and also revealed good anterior-posterior gradient. Alpha activity symmetrical blocked with opening of the eyes. Low-voltage beta activity seen admixed with low-voltage theta and Alpha activity during drowsiness. Bilateral symmetrical sleep spindles are seen during sleep. Hyperventilation not done. Photic stimulation not done. Non paroxysmal. Nonfocal. Nonlateralizing. IMPRESSION Normal record. Clinical correlation recommended. And EEG can be normal even if the patient has known seizure disorder.
[2024-11-08 11:20] LABS: Glucose Point of Care 197 mg/dl (65-105)
[2024-11-08 13:58] VITALS: BP 142/78; PULSE 91; RESP 18; TEMP 36.2; O2SAT 94
--- NOTE | 2024-11-08 14:13 | PM.DS ---
DS: Admitting Diagnosis Discharge Date 11/08/24 Admitting Diagnosis transferred from [facility] on account of elevated troponin DS: Discharge Diagnosis Discharge Diagnosis (1) CHF (congestive heart failure): Code(s): I50.9 - Heart failure, unspecified Status: Acute (2) Iron deficiency anemia: Code(s): D50.9 - Iron deficiency anemia, unspecified Status: Acute (3) Pleural effusion: Code(s): J90 - Pleural effusion, not elsewhere classified Status: Acute DS: Summary Hospital Course Hospital Course: 48 yo female wiht PMH of DM2, CHF CVA on chronic gonzalez for urinary incontinence who presented to the [facility] ER on account of SOB. Patient is lethargic and thus not a great historian, however she started she has been having leg swelling since September, and now having worsening SOB, associated orthopnea and PND. Noted she has stroke in September and was admitted to [facility] where she was intubated during the course. Denies any vomiting, abd pain, diarrhea or focal weakness. noted she is on 2 liters oxygen at baseline. At the ER T 98, 93/65, saturating 97% on 4 liters oxygen. labs abg 7.38/38.3/65/22.4, hb 8.6, Cr 1.29 at appears to be at baseline, BG 348, Troponin 0.373 CT chest showed bilarteal pleural effusion with adjacent atelectasis and patchy right opacities in the right upper lobe indicative of focla pneumonia. Cardiology was consulted and patient and troponin elevated was considered demand. However patient was started on Lasix for CHF exacerbation with pleural effusion, now on baseline oxygen and then transitioned back to Bumex 1mg daily per supervisor fine grading. CXR on admission showed bilateral pleural effusion and underwent thoracentesis. Lisa resolved. managed for pneumonia and UTI and completed antibiotics. Patient had anxiety and seizure was suspected, CT head and EEG were done and unremarkable. Neurology was consulted and evaluated patient and will follow up outpatient. She was managed for iron deficiency, and GI was consulted and evaluated and noted outpatient endoscopy. Isat 11, Hb 8.6 discharged on PO oral iron replacement. continue follow up with GI outpatient. Continue chronic gonzalez, cardiology adjusted Xarelto to 15mg daily. F/u with PCP in 3-5 days, f/u with cardiology, GI and neurology as instructed. Time Spent with Patient Time attestation: Total time spent providing and/or coordinating discharge services: DS: Data Data Completed and Pending Completed studies during hospitalization: Pending at discharge 11/04/24 09:04 Cytology [PTH] Routine Labs on day of discharge: Labs from last 24 hours 11/08/24 11/08/24 11/08/24 11:11 07:31 05:32 WBC 6.6 RBC 3.02 L Hgb 8.6 L Hct 29.3 L MCV 97.0 MCH 28.5 MCHC 29.4 L RDW 16.5 H Plt Count 216 MPV 10.8 H Sodium 139 Potassium 4.9 Chloride 105 Carbon Dioxide 29 Anion Gap 5 BUN 43 H Creatinine 1.29 H Estim Creat Clear Calc 57 Estimated GFR 44 L Glucose 213 H POC Capillary Glucose 197 H 208 H Calcium 8.4 Total Bilirubin 0.3 AST 20 ALT 13 Alkaline Phosphatase 122 Total Protein 6.0 L Albumin 2.8 L 11/07/24 11/07/24 11/07/24 20:19 16:25 16:24 WBC RBC Hgb Hct MCV MCH MCHC RDW Plt Count MPV Sodium Potassium Chloride Carbon Dioxide Anion Gap BUN Creatinine Estim Creat Clear Calc Estimated GFR Glucose POC Capillary Glucose 104 229 H 395 H Calcium Total Bilirubin AST ALT Alkaline Phosphatase Total Protein Albumin Preliminary micro results at discharge 11/03/24 10:18 Anaerobic Culture - Preliminary Pleural Fluid Aerobic Culture - Preliminary Discharge Plan Discharge Attending physician on discharge: Storm Ruelas Consulting providers: John Freedman; Augustin Hazel; Wellington Wesley; Storm Ruelas Discharging Clinician: Storm Ruelas Anticipated Discharge Date/Time: 11/08/24 13:59 Patient Disposition: Home Health Service Activity: as tolerated Diet: heart healthy and diabetic Discharge Instructions: Per Care Coordination: [facility] will resume services at discharge. [facility] to resume RN and PT/OT eval and treat services. [facility] can be contacted at [phone]. Nursing please fax discharge paperwork to . Primary supervisor fine grading is Dr. Rose Conn at [facility], last visit was in July 2024. Patient to follow up with her primary supervisor fine grading after hospital discharge. Patient Instructions: Antibiotic Form, Rivaroxaban (By mouth) Patient Language: Chadian Stand Alone Forms: General Discharge Information Follow-up/Referrals: Lance,MELLISSA Kent [Primary Care Provider] - (F/u with PCP in 3-5 days ) Wellington Wesley MD [Physician] - (F/u with Neurology as instructed ) John Freedman MD [Physician] - (F/u with cardiology as instructed ) Augustin Hazel MD [Physician] - (F/u with pulm as instructed ) Discharge Medications: New midodrine 2.5 mg Tablet 2.5 mg PO TID 30 Days Qty: 90 0RF polysaccharide iron complex 150 mg iron Capsule 150 mg PO DAILY@0800 30 Days Qty: 30 1RF pantoprazole 40 mg Tablet,Delayed Release (Dr/Ec) 40 mg PO QAM 30 Days Qty: 30 0RF Xarelto 15 mg Tablet 15 mg PO EVENING 30 Days Qty: 30 1RF Continued gabapentin 400 mg capsule See Rx Instructions .ROUTE .COMPLEX Rx Instructions: Take 1 capsule in the morning Take 1 capsule in the afternoon Take 3 capsules at bedtime ezetimibe 10 mg tablet 10 mg PO DAILY celecoxib 200 mg Capsule 200 mg PO BID atorvastatin 80 mg Tablet 80 mg PO DAILY bumetanide 1 mg Tablet See Rx Instructions .ROUTE .COMPLEX Patient Comments: 2 mg three times a day Rx Instructions: 2 mg three times a day metoprolol succinate 25 mg Tablet Extended Release 24 Hr 25 mg PO DAILY insulin lispro [Humalog U-100 Insulin] 100 unit/mL Solution See Rx Instructions .ROUTE .COMPLEX Rx Instructions: 8 units + SSI TID c meals Levemir U-100 Insulin 100 unit/mL Solution 46 unit SUBCUT DAILY docusate sodium [Colace] 100 mg capsule 100 mg PO BID PRN (Reason: constipation) Qty: 14 0RF albuterol sulfate 5 mg/mL solution for nebulization 2.5 mg inhalation Q6H PRN (Reason: shortness of breath or wheezing) cyclobenzaprine 10 mg tablet 10 mg PO TID famotidine 20 mg tablet 20 mg PO Q12H hydrocodone-acetaminophen 10-325 mg tablet 1 tablet PO BID PRN (Reason: pain) Patient Comments: Usually just takes at bedtime. Trulance 3 mg tablet 3 mg PO DAILY potassium chloride 20 mEq tablet,ER particles/crystals 20 meq PO DAILY Mounjaro 2.5 mg/0.5 mL pen injector 2.5 mg SUBCUT WEEKLY Patient Comments: Takes on . Discontinued Xarelto 10 mg tablet 10 mg PO DAILY Date of admission: 10/29/24 09:06 Primary Care Provider: LanceDonte Admitting Provider: Elizabet Valdez Attending physician on admission: Storm Ruelas Condition: Improved
== END 2024-11-08 15:10 | disposition home health service (06) | DRG 291 ==
LOC: ANHIMU 10-31 14:47 → ANH3MEDSUR 11-01 10:18 → ANHIMU 11-09 10:59
PROVIDERS: General Practice; Hospitalist; Internal Medicine; Admitting Provider Internal Medicine; PCP Physician Assistant; Visit Provider Internal Medicine
DX: I50.23 Acute on chronic systolic (congestive) heart failure (principal); J18.9 Pneumonia, unspecified organism; J96.21 Acute and chronic respiratory failure with hypoxia; J91.8 Pleural effusion in other conditions classified elsewhere; J44.0 Chronic obstructive pulmonary disease with (acute) lower respiratory infection; I24.89 Other forms of acute ischemic heart disease; N17.9 Acute kidney failure, unspecified; N39.0 Urinary tract infection, site not specified; B96.1 Klebsiella pneumoniae [K. pneumoniae] as the cause of diseases classified elsewhere; D50.9 Iron deficiency anemia, unspecified; R32 Unspecified urinary incontinence; E78.5 Hyperlipidemia, unspecified; E11.22 Type 2 diabetes mellitus with diabetic chronic kidney disease; Z66 Do not resuscitate; I25.10 Atherosclerotic heart disease of native coronary artery without angina pectoris; I48.0 Paroxysmal atrial fibrillation; I73.9 Peripheral vascular disease, unspecified; N18.31 Chronic kidney disease, stage 3a; F17.210 Nicotine dependence, cigarettes, uncomplicated; R91.1 Solitary pulmonary nodule; G40.909 Epilepsy, unspecified, not intractable, without status epilepticus; E66.01 Morbid (severe) obesity due to excess calories; Z20.822 Contact with and (suspected) exposure to COVID-19; Z86.711 Personal history of pulmonary embolism; Z99.81 Dependence on supplemental oxygen; S22.42XG Multiple fractures of ribs, left side, subsequent encounter for fracture with delayed healing; Z86.73 Personal history of transient ischemic attack (TIA), and cerebral infarction without residual deficits; W19.XXXD Unspecified fall, subsequent encounter; Z91.148 Patient's other noncompliance with medication regimen for other reason; Z68.38 Body mass index [BMI] 38.0-38.9, adult; Z89.422 Acquired absence of other left toe(s); I25.2 Old myocardial infarction
CPT/HCPCS: 32555; 36415; 70450; 71045; 80053; 80061; 82042; 82150; 82248; 82274; 82607; 82728; 82746; 82945; 82948; 83010; 83540; 83550; 83615; 83735; 83880; 83986; 84157; 84466; 84484; 85014; 85018; 85025; 85027; 85046; 85610; 85730; 86880; 87040; 87070; 87075; 87205; 87641; 88108; 88305; 89051; 94003; 94660; 94762; 95816; 97110; 97116; 97162; 97166; 97530; 97535; A9270; C8929; J1644; J1815; J1940; J1956; J2405; P9047; Q9957

== ENCOUNTER 2024-12-08 16:02 | Outpatient (CLI) | payer MEDICARE, MEDICAID, SELFPAY ==
--- NOTE | ~2024-12-08 | XR_ITS ---
CHEST RADIOGRAPH, PA AND LATERAL CLINICAL HISTORY: Lower Respiratory Infection, pneumonia . COMPARISON: 11/07/2024 TECHNIQUE: PA and lateral views of the chest. FINDINGS The cardiomediastinal silhouette is unremarkable. The lungs are clear. IMPRESSION: No focal infiltrate or effusion. Reviewed, dictated and finalized at location A.
--- OUTSIDE RECORDS SUMMARY | 2024-12-08 16:08 | XMS_ITS | Encounter Summary ---
Author Organization [facility] Address [address] [facility] [place] [address] Phone Care Team Providers Care Optoelectronic Technician Name Role Phone ShadyDonte dominguez MUREIL Primary Care Provider [phone] Reason for Visit * Auth/Cert (Routine) Specialty Diagnoses / Procedures Referred By Jadyn benitez Referred To Contact Referral ID Status Reason Start Date Expiration Date Visits Re quested Visits Authorized [id number] Encounter Details Date Type Department Care Team ([facility] Contact Info) Description 12/07/2024 11:00 AM CDT Home Care Visit [address] [address] Mai Bass, RN [place] SN - HOME VISIT Social History Tobacco Use Types Packs/Day Years Used Date Smoking Tobacco: Never Assessed Comments Unknown Sex and Gender Information Value Date Recorded Sex Assigned at Not on file Legal Sex Female 1:58 PM STAGE DIRECTOR Gender Identity Not on file Sexual Orientation Not on file documented as of this encounter Last Filed Vital Signs Vital Sign Reading Time Taken Comments Blood Pressure 122/60 12/07/2024 10:54 AM CDT Pulse 89 12/07/2024 10:54 AM CDT Temperature 36.3 C (97.3 F) 12/07/2024 10:54 AM CDT Respiratory Rate 18 12/07/2024 10:54 AM CDT Oxygen Saturation 98% 12/07/2024 10:54 AM CDT Inhaled Oxygen Concentration - - Weight 93 kg (205 lb) 12/07/2024 10:54 AM CDT Height - - Body Mass Index 34.11 12/06/2024 12:17 PM CDT documented in this encounter Plan of Treatment Upcoming Encounters Date Type Department Care Team ([facility] Contact Info) Description 12/09/2024 2:00 PM CDT Home Care Visit [address] [address] Elisa Pollack, FILLER SHREDDER HELPER [place] 12/13/2024 1:00 AM CDT Home Care Visit [address] [address] Mai Bass RN [place] 12/13/2024 2:00 AM CDT Home Care Visit [address] [address] Elisa Pollack, FILLER SHREDDER HELPER [place] 12/13/2024 8:00 AM CDT Home Care Visit [address] [address] Brooke Burt, [place] 12/15/2024 1:00 AM CDT Home Care Visit [address] [address] Elisa Pollack, FILLER SHREDDER HELPER [place] 12/15/2024 2:00 AM CDT Home Care Visit [address] [address] Brooke Burt, EDUCATION DEPARTMENT REGISTRAR [place] 12/19/2024 1:00 AM CDT Home Care Visit [address] [address] Elisa Pollack, FILLER SHREDDER HELPER [place] 12/20/2024 1:00 AM CDT Home Care Visit [address] [address] Mai Bass, RN [place] 12/20/2024 2:00 AM CD[facility] [address] [address] Brooke Burt, [place]AN[place] 12/21/2024 1:00 AM CDT Home Care Visit [address] [address] Elisa Pollack, FILLER SHREDDER HELPER [place] 12/22/2024 1:00 AM CDT Home Care Visit [address] [address] Brooke Burt, EDUCATION DEPARTMENT REGISTRAR [place] 12/26/2024 1:00 AM CDT Home Care Visit [address] [address] Maggie Murguia, PT 12/27/2024 1:00 AM CD[facility] [address] [place] [address] Mai Bass, RN [place] 12/27/2024 2:00 AM CD[facility] [address] [place] [address] Brooke Burt, EDUCATION DEPARTMENT REGISTRAR [place] 12/28/2024 1:00 AM CDT Home Care Visit [address] [address] Elisa Pollack, FILLER SHREDDER HELPER [place] 12/29/2024 1:00 AM CDT Home Care Visit [address] [address] Kathrin Mcmullen, OT 01/03/2025 1:00 AM CDT Home Care Visit [address] [address] Mai Bass, RN [place] 01/10/2025 1:00 AM CDT Home Care Visit [address] [address] Mai Bass, RN [place] 01/17/2025 1:00 AM CDT Home Care Visit [address] [address] Mai Bass, RN [place] 01/24/2025 1:00 AM CDT Home Care Visit [address] [address] Mai Bass, [place] 01/31/2025 1:00 AM CDT Appointment [address] [address] Mai Bass, RN [place] documented as of this encounter Visit Diagnoses Not on filedocumented in this encounter Home Health Visit - Care Plan Visit Details Visit Type -SN - Home Health Visit Discipline -[facility] Problems Problem Description Start Date Status Goals Interve ntions UTI PREVENTION Disciplines: [facility] 10/24/2024 Active 1 goal linked to scheduled/documente [...] Scheduled documented in this encounter Care Teams Optoelectronic Technician Relationship Specialty Start Date End Date Donte Lucas PAC [address] [place] [address] PCP - General Physician Corn Detasseler Machine Operator 10/01/24 documented as of this encounter
--- OUTSIDE RECORDS SUMMARY | 2024-12-08 16:08 | XMS_ITS | Encounter Summary ---
Author Organization [facility] Address [address] [facility] [place] [address] Phone Care Team Providers Care Manager Ecommerce Name Role Phone Donte Lucas MURIEL Primary Care Provider [phone] Reason for Visit * Auth/Cert (Routine) Specialty Diagnoses / Procedures Referred By Jadyn benitez Referred To Contact Referral ID Status Reason Start Date Expiration Date Visits Re quested Visits Authorized [id number] Encounter Details Date Type Department Care Team (Late Contact Info) Description 12/08/2024 10:00 AM CDT Home Care Visit [address] [address] Brooke Burt, M[place]AN[place] OT - HOME VISIT Social History Tobacco Use Types Packs/Day Years Used Date Smoking Tobacco: Never Assessed Comments Unknown Sex and Gender Information Value Date Recorded Sex Assigned at Not on file Legal Sex Female 1:58 PM EVALUATOR TRANSFER STUDENTS Gender Identity Not on file Sexual Orientation Not on file documented as of this encounter Last Filed Vital Signs Vital Sign Reading Time Taken Comments Blood Pressure 130/70 12/08/2024 10:38 AM CDT Pulse 108 12/08/2024 10:38 AM CDT Temperature 36.2 C (97.2 F) 12/08/2024 10:38 AM CDT Respiratory Rate 18 12/08/2024 10:38 AM CDT Oxygen Saturation 97% 12/08/2024 10:38 AM CDT Inhaled Oxygen Concentration - - Weight 92.2 kg (203 lb 4 oz) 12/08/2024 10:38 AM CDT Height - - Body Mass Index 33.82 12/06/2024 12:17 PM CDT documented in this encounter Plan of Treatment Upcoming Encounters Date Type Department Care Team (Late Contact Info) Description 12/09/2024 2:00 PM CDT Home Care Visit [address] [address] Elisa Pollack, MAGNET PLACER [place] 12/13/2024 1:00 AM CDT Home Care Visit [address] [address] Mai Bass RN [place] 12/13/2024 2:00 AM CDT Home Care Visit [address] [address] Elisa Pollack, MAGNET PLACER [place] 12/13/2024 8:00 AM CDT Home Care Visit [address] [address] Brooke Burt, [place] 12/15/2024 1:00 AM CDT Home Care Visit [address] [address] Elisa Pollack, MAGNET PLACER [place] 12/15/2024 2:00 AM CDT Home Care Visit [address] [address] Brooke Burt, COMMUNICATION CLERK [place] 12/19/2024 1:00 AM CDT Home Care Visit [address] [address] Elisa Pollack, MAGNET PLACER [place] 12/20/2024 1:00 AM CDT Home Care Visit [address] [address] Mai Bass, RN [place] 12/20/2024 2:00 AM CD[facility] [address] [address] Brooke Burt, [place]AN[place] 12/21/2024 1:00 AM CDT Home Care Visit [address] [address] Elisa Pollack, MAGNET PLACER [place] 12/22/2024 1:00 AM CDT Home Care Visit [address] [address] Brooke Burt, COMMUNICATION CLERK [place] 12/26/2024 1:00 AM CDT Home Care Visit [address] [address] Maggie Murguia, PT 12/27/2024 1:00 AM CD[facility] [address] [place] [address] Mai Bass, RN [place] 12/27/2024 2:00 AM CD[facility] [address] [place] [address] Brooke Burt, COMMUNICATION CLERK [place] 12/28/2024 1:00 AM CDT Home Care Visit [address] [address] Elisa Pollack, MAGNET PLACER [place] 12/29/2024 1:00 AM CDT Home Care Visit [address] [address] Kathrin Mcmullen, OT 01/03/2025 1:00 AM CDT Home Care Visit [address] [address] Mai Bass, RN [place] 01/10/2025 1:00 AM CDT Home Care Visit [address] [address] Mai Bass, RN [place] 01/17/2025 1:00 AM CDT Home Care Visit [address] [address] Mai Bass, [place] 01/24/2025 1:00 AM CDT Home Care Visit [address] [address] Mai Bass, RN [place] 01/31/2025 1:00 AM CDT Appointment [address] [address] Mai Bass RN [place] documented as of this encounter Visit Diagnoses Not on filedocumented in this encounter Home Health Visit - Care Plan Visit Details Visit Type -OT - HOME VISIT Discipline -Occupational Therapy Problems Problem Description Start Date Status Goals Interve ntions ALL HH VITAL SIGN PARAMETERS Disciplines: All Home Care 10/06/2024 Active - 1 problem intervention scheduled/document ed in this visit OT COMPREHENSIVE Disciplines: Occupational Therapy 10/11/2024 Active - 1 problem intervention scheduled/document ed in this visit OCCUPATIONAL THERAPY EVALUATION ORDER (O) Disciplines: Occupational Therapy Occupational Therapy General Order 12/06/2024 Active 1 goal linked to scheduled/documen monty intervention 1 goal intervention scheduled/document ed in this visit Goals Goal Associated Problem Outcome Goal Met? Visit Notes Occupational Therapy Evaluation Description: After assessing the patient and discussing the patient's goals the following were identified. Patient Centered Halfway Goal: to be able to maker her own bed Target date: 12/30/24 OCCUPATIONAL THERAPY EVALUATION ORDER (O) No Interventions Intervention Associated Problem/Goal Status Variance Visit Notes All HH Vital Sign Parameters (Order Only) Description: Standard parameters to report to physician (unless patient specific parameters are ordered) - Applicable to all disciplines involved in patient's plan of care: Systolic blood pressure less than 90 Systolic blood pressure greater than 160 and/or diastolic blood pressure greater than 100 at rest unless due to uncontrolled pain or missed dose of antihypertensive medication. Blood Pressure greater than 140/90 for 3 consecutive readings occurring in at least two separate visits. Pulse greater than 110 at rest or less than 50 Respirations greater than 24 at rest or less than 10 Temperature greater than 101 degrees Fahrenheit New or increased edema Pulse ox less than 90% at rest on room air or while wearing prescribed oxygen, if ordered. Uncontrolled pain: chronic pain that changes in character or increases, pain that interferes with activity daily, or pain that is reported as unacceptable by the patient after use of prescribed pain control measures. Problem:ALL HH VITAL SIGN PARAMETERS Completed Pt HR at 108 at rest with MD appt scheduled for later this date. Pt to discuss with MD at that time. Call completed to inform MD as well. OT Home Safety Description: print weight log with blood sugar and pulse ox to monitor vitals closely educate on CHF and importance of weighing educate on reporting parameters for weight gain Problem:OT COMPREHENSIVE Completed Patient performed home safety techniques for meal prep in order to decrease risk of fall or injury. Education provided fall prevention, energy conservation and use of assistive device. Instruction provided to Patient. Response verbalize understanding, return demonstration and reinforcement needed for compliance. Pt completed meal prep, item retrieval from refrigeratory, microwave and cabinets, and kitchen mobility with SBA of moderate visual and v/c for safe 4ww positioning when reaching, safe use of walker seat for transporting items and sitting as needed, safe standing position when reaching, and environment modifications in order to increase safety with 4ww negotiation around kitchen. Pt and CG education on storing all frequently consumed food/drink and dishes used at safe level reach with good understanding. OT Evaluation (Order Only) Description: Occupational therapy comleted evaluation in new certification period. She has made good progress with bathing, dressing, toileting, transfers. Pt. would benefit from continued occupational therapy to address lower body dressing, toileting, light meal prep, and light housekeeping from walker level. Patient and MURIEL Ward are in agreement with plan of care. Perform pulse oximetry PRN for intermittent assessment and/ or respiratory distress. Problem:OCCUPATIONAL THERAPY EVALUATION ORDER (O) Goal:Occupational Therapy Evaluation Completed documented in this encounter Home Health Visit - Actions and Narratives Actions Pt has MD appt later this af ternoon for chest congestion, occasional dizziness, and deep cough. Call to MD to inform of elevated HR of 108 at rest. documented in this encounter Care Teams Manager Ecommerce Relationship Specialty Start Date End Date Donte Lucas PAC [address] [place] [address] PCP - General Physician Ambulatory Service Representative 10/01/24 documented as of this encounter
--- OUTSIDE RECORDS SUMMARY | 2024-12-08 16:08 | XMS_ITS | Encounter Summary ---
Author Organization [facility] Address [address] [facility] [place] [address] Phone Care Team Providers Care Civil Laboratory Technician Name Role Phone ShadyalbertoDonte Primary Care Provider [phone] Reason for Visit * Auth/Cert (Routine) Specialty Diagnoses / Procedures Referred By Jadyn benitez Referred To Contact Referral ID Status Reason Start Date Expiration Date Visits Re quested Visits Authorized [id number] Encounter Details Date Type Department Care Team ([facility] Contact Info) Description 12/08/2024 Home Care Visit [address] [address] Brooke Burt OTA [place] TELEPHONE ENCOUNTER Social History Tobacco Use Types Packs/Day Years Used Date Smoking Tobacco: Never Assessed Comments Unknown Sex and Gender Information Value Date Recorded Sex Assigned at Not on file Legal Sex Female 1:58 PM BOBCAT DRIVER/LABOR Gender Identity Not on file Sexual Orientation Not on file documented as of this encounter Plan of Treatment Upcoming Encounters Date Type Department Care Team ([facility] Contact Info) Description 12/09/2024 2:00 PM CDT Home Care Visit [address] [address] Elisa Pollack, AUTOMATIC LEHR OPERATOR [place] 12/13/2024 1:00 AM CDT Home Care Visit [address] [address] Mai Bass RN [place] 12/13/2024 2:00 AM CDT Home Care Visit [address] [address] Elisa Pollack, AUTOMATIC LEHR OPERATOR [place] 12/13/2024 8:00 AM CDT Home Care Visit [address] [address] Brooke Burt, [place]AN[place] 12/15/2024 1:00 AM CD[facility] [address] [place] [address] Elisa Pollack, AUTOMATIC LEHR OPERATOR [place] 12/15/2024 2:00 AM CDT Home Care Visit [address] [address] Brooke Burt, [employer] [place] 12/19/2024 1:00 AM CDT Home Care Visit [address] [address] Elisa Pollack, AUTOMATIC LEHR OPERATOR [place] 12/20/2024 1:00 AM CDT Home Care Visit [address] [address] Mai Bass RN [place] 12/20/2024 2:00 AM CDT Home Care Visit [address] [address] Brooke Butr, [place] 12/21/2024 1:00 AM CDT Home Care Visit [address] [address] Elisa Pollack, AUTOMATIC LEHR OPERATOR [place] 12/22/2024 1:00 AM CDT Home Care Visit [address] [address] Brooke Burt, [employer] [facility] [place] 12/26/2024 1:00 AM CDT Home Care Visit [address] [address] Maggie Murguia, PT 12/27/2024 1:00 AM CD[facility] [address] [place] [address] Mai Bass, RN [place] 12/27/2024 2:00 AM CDT Home Care Visit [address] [address] Brooke Burt, [employer] [facility] [place] 12/28/2024 1:00 AM CDT Home Care Visit [address] [address] Elisa Pollack PTA [place] 12/29/2024 1:00 AM CDT [facility] [address] [place] [address] Kathrin Mcmullen OT 01/03/2025 1:00 AM CDT Home Care Visit [address] [address] Mai Bass, [place] 01/10/2025 1:00 AM CDT Home Care Visit [address] [address] Mai Bass, [place] 01/17/2025 1:00 AM CDT Home Care Visit [address] [address] Mai Bass, [place] 01/24/2025 1:00 AM CDT Home Care Visit [address] [address] Mai Bass, [place] 01/31/2025 1:00 AM CDT Appointment [address] [address] Mai Bass, RN [place] documented as of this encounter Visit Diagnoses Not on filedocumented in this encounter Home Health Visit - Actions and Narratives Actions Call to Reuben at PCP office to report Pt elevated HR of 108 at rest this date. MD to address at appt scheduled for this afternoon. documented in this encounter Care Teams Civil Laboratory Technician Relationship Specialty Start Date End Date Donte Lucas PAC [address] [place] [address] PCP - General Physician Hardening Machine Operator Helper 10/01/24 documented as of this encounter
--- OUTSIDE RECORDS SUMMARY | 2024-12-08 16:08 | XMS_ITS | Encounter Summary ---
Author Organization [facility] Address [address] [place] [address] Care Team Providers Care Tobacco Prizer Name Role Phone Arnoldo Gary MD Primary Care Provider [phone] Miscellaneous, Not In File Primary Care Provider Unavailable Donte Lucas Primary Care Provider Encounter Details Date Type Department Care Team (Late st Contact Info) Description 09/26/2021 Telephone [facility] Case Management [address] [place] [address] Leydi Bush, RN Social History [...] often do you attend chur ch or lutheran services? Never 09/24/2021 Do you belong to any clubs o r organizations such as shinto groups, unions, fraternal or athletic groups, or [...] on file Legal Sex Female 11:01 PM VICE PRESIDENT EDUCATION Gender Identity Not on file Sexual Orientation Not on file documented as of this encounter Plan of Treatment Not on file documented as of this encounter Visit Diagnoses Not on filedocumented in this encounter Additional Health Concerns Infection Onset Date Last Indicated Resolved Time COVID: Suspected 09/13/2024 09/13/2024 09/13/2024 2:58 AM VICE PRESIDENT EDUCATION Influenza, adult 09/13/2024 09/13/2024 09/28/2024 11:27 AM VICE PRESIDENT EDUCATION C. difficile suspected 09/25/2024 09/26/202409/26 4:13 AM VICE PRESIDENT EDUCATION documented as of this encounter Care Teams Tobacco Prizer Relationship Specialty Start Date End Date Arnoldo Gary MD [address] [place] [address] PCP - General 12/22/17 05/23/23 Miscellaneous, Not In File PCP - General 05/24/23 Donte Lucas PA [address] [place] [address] PCP - General Physician Dehydrogenation Operator 08/26/24 documented as of this encounter
--- OUTSIDE RECORDS SUMMARY | 2024-12-08 16:08 | XMS_ITS | Clinical Summary ---
Author Organization [employer] [facility] Address [address] [facility] [place] [address] Phone Care Team Providers Care Light Fixture Servicer Name Role Phone Arnoldo Gary MD Primary Care Provider [phone] Allergies Active Allergy Reactions Criticality Noted Date [...] migh t be different from the original. 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 Screw Left: Hip Snapverse [facility] 02/06/2031 04.038.19 0 S / / [id number] Screw Loc Stardrv 5x62mm Strl 04.005.552s - Sload 23 Implanted:Qty: 1 on 03/27/2021 by Bob Deras MD at [facility] Screw Left: Hip [employer] 04.005.55 2 S / LOAD 03/14/21 11mm/125deg Ti Js Tfna 380mm/Left Implanted:Qty: 1 on 03/27/2021 by Bob Deras MD at [facility] Left: Hip [employer] 01/07/2030 04.037.12 9 S / / [id number] Description:All [employer]ynthe[employer] comp onents are processed on requisition, [id number]. Procedures Procedure Name Priority Date/Time Associated Diagnosis Comments HEMOGLOBIN A1C Stat 04/25/2022 3:22 AM CDT LIPID PANEL Routine 04/20/2021 5:30 AM CDT MICROALBUMIN/CREATIN INE RATIO, RANDOM UR Routine 06/26/2014 Diabetes mellitus ([facility]) from Last 3 Months or Most Recently Relevant to Health Maintenance Results * (ABNORMAL) HEMOGLOBIN A1C (04/25/2022 3:22 AM CDT) HEMOGLOBIN A1C 8.2(H) <=5.6 % 04/25/2022 4:13 AM CDT [facility] EST. AVG GLUCOSE, A1C 189 mg/dL 04/25/2022 4:13 AM CDT [facility] Blood Venipuncture / Unknown 04/25/2022 3:22 AM CDT 04/25/2022 3:43 AM CDT Narrative [facility] - 04/25/2022 4:13 AM CDT HGB A1C INTERPRETATION NORMAL: <5.7% PRE-DIABETES: 5.7 - 6.4% DIABETES: 6.5% OR GREATER us Alphonse Samson MD CHEMISTRY ORDERABLES Final Result [facility] CLIA # [id number] [address] [place] [id number] * (ABNORMAL) LIPID PANEL (04/20/2021 5:30 AM CDT) CHOLESTEROL 166 <200 mg/dL 04/20/2021 6:55 AM [facility] TRIGLYCERIDE 83 <150 mg/dL 04/20/2021 6:55 AM [facility] HDL 40 40 - 59 mg/dL 04/20/2021 6:55 AM [facility] LDL CALCULATED 109(H) <100 mg/dL 04/20/2021 6:55 AM [facility] NON-HDL CHOLESTEROL 126 <130 mg/dL 04/20/2021 6:55 AM [facility] Blood Venipuncture / Unknown 04/20/2021 5:30 AM CDT 04/20/2021 6:21 AM CDT [facility] - 04/20/2021 6:55 AM CDT TOTAL [...] Tawana Kelly MD CHEMISTRY ORDERABLES Final Result [facility] Merlin [facility]# [id number] [address] [facility] [place] [address] * MICROALBUMIN/CREATININE RATIO, RANDOM UR (06/26/2014) Urine specimen (specimen) us Orquidea Delgado MD URINE ORDERABLES Final Result [facility] # [id number] [place] [address] from Last 3 Months or Most Recently Relevant to Health Maintenance Additional Health Concerns Infection Onset Date Last Indicated MRSA Comment:hx MRSA documented per 12/22/17 infectious disease screening form - Cierra Becker RN 12/24/2017 05/09/2024 Insurance MEDICAID [facility] MEDICARE Advance Directives For more information, please contact: [phone] * Full Code (Latest Code Status on File) Date Activated Date Inactivated Comments 04/25/2022 2:46 AM 04/29/2022 5:00 PM * Full Code Date Activated Date Inactivated Comments 05/08/2021 5:35 PM 05/24/2021 5:02 PM * Full Code Date Activated Date Inactivated Comments 03/27/2021 7:30 AM 05/08/2021 5:20 PM Care Teams Light Fixture Servicer Relationship Specialty Start Date End Date Arnoldo Gary MD [address] [place] [address] PCP - General Internal Medicine 03/27/21
--- OUTSIDE RECORDS SUMMARY | 2024-12-08 16:09 | XMS_ITS | Clinical Summary ---
Author Organization [facility] er Address [address] [place] [address] Care Team Providers Care Programmer Analyst Name Role Phone Donte Lucas Primary Care Provider Allergies Active Allergy Reactions Criticality Noted Date Comments Cephalexin Unknown Low Codeine Unknown Low Erythromycin Medications sacubitriL-valsa rtan (ENTRESTO) 24-26 mg tabletIndication s:chronic heart failure Take 0.5 tablets by mouth 2 (two) times a day Active clopidogreL (PLAVIX) 75 mg tablet Take 1 tablet (75 mg total) by mouth daily Active cyclobenzaprine (FLEXERIL) 5 [...] times a day with meals Sliding Scale 1 Active HYDROcodone-acet aminophen (NORCO) 5-325 mg per tablet Take 1 tablet by mouth every 6 (six) hours as needed for pain 0 Active ezetimibe (ZETIA) 10 mg tablet Take 1 tablet (10 mg total) by mouth daily Active blood-glucose sensor (FreeStyle Carol 3 Sensor) device Every 14 days 3 Active gabapentin (NEURONTIN) 300 mg capsule Take [...] with dinner Active becaplermin (REGRANEX) 0.01 % gelIndications:d iabetic neuropathic ulcer of lower extremity Apply 1 Application topically every morning Active tirzepatide (Mounjaro) 2.5 mg/0.5 mL pen injector injection Inject 0.5 mL (2.5 mg total) under the skin every 7 days Active sertraline (ZOLOFT) 50 mg tablet Take 1 tablet (50 mg total) by mouth daily 30 tablet 11 5 10/02/19 26 Active polysaccharide iron complex (NU-IRON) 150 mg iron capsuleIndicatio ns:Iron Deficiency Anemia Take 1 capsule (150 mg total) by mouth daily 30 capsule 5 Active insulin detemir (LEVEMIR) 100 unit/mL (3 mL) pen for injection Inject 30 Units under the skin daily with breakfast 9 mL 1 5 Active bumetanide (BUMEX) 1 mg tablet Take 2 tablets (2 mg total) by mouth 3 (three) times a day 5 Active Active Problems Problem Noted Date Diagnosed Date Acute encephalopathy 09/16/2024 Pneumonia due to methicillin susceptible Staphylococcus aureus (MSSA) 09/16/2024 MSSA bacteremia 09/15/2024 Hypernatremia 09/14/2024 DKA, type 2, not at goal 09/13/2024 Ischemic stroke 09/13/2024 Acute kidney injury 09/22/2021 Tobacco use 09/22/2021 Fall 09/22/2021 Acute cystitis with hematuria 09/22/2021 Coronary artery disease invo lving [place] coronary artery of [place] heart without angina pectoris 09/22/2021 Chronic pain [...] Encounters Date Type Department Care Team Description 12/01/2024 9:00 AM CDT Office Visit [facility] Cardiology [address] [place] [address] [place] [phone] Maggie Schmitz NP Chronic systolic congestive heart failure (HCC) (Primary Dx); Coronary artery disease involving [place] coronary artery of [place] heart without angina pectoris; Lipid screening; Paroxysmal atrial fibrillation (HCC); Urinary retention; Hospital discharge follow-up 11/10/2024 3:00 PM CDT Home Care Visit [address] [address] [address] [place] [address] Danuta Peña, [facility] INFORMATIONAL VISIT 11/08/2024 Home Care Visit [address] [place] [address] Amanda Mcdonnell, PADMA SN TRIAGE ENCOUNTER 11/07/2024 Orders Only [facility] Cardiology [address] [place] [address] [address] [place] [address] John Freedman MD 10/28/2024 Orders Only [facility] Hospitalists [facility] [place] [address] Trevor Rollins MD 09/13/2024 1:12 AM FINANCIAL ASSISTANCE SPECIALIST - 10/01/2024 5:21 PM FINANCIAL ASSISTANCE SPECIALIST Hospital Encounter [address] [place] [address] Abeba Ash MD Striker, David [...] Discharge to home, home health skilled care from Last 3 Months Surgical History Surgery [...] Smoking Tobacco: Every Day Smokeless Tobacco: Never Tobacco Cessation:Ready to Q uit: Not Asked; Counseling Given: Not Answered Comments:Smoking History Packs/day: 1 Packs Alcohol Use Standard Drinks/Week Comments No 0 (1 standard drink = 0.6 oz pur e alcohol) [facility] Utilities Answer Date Recorded In the past 12 months has [employer], gas, oil, or water [employer] threatened to shut off services in your [...] week 09/13/2024 How often do you attend [facility] or catholic services? Never 09/13/2024 Do you belong to any clubs o r organizations such as islam groups, unions, fraternal or athletic groups, or [...] any time in the past 12 m [facility], were you homeless or living in a [...] on file Legal Sex Female 11:01 PM FINANCIAL ASSISTANCE SPECIALIST Gender Identity Not on file Sexual Orientation Not on file Obstetrics History Last Filed Vital Signs Vital Sign Reading Time Taken Comments Blood Pressure 108/68 12/01/2024 8:58 AM CDT Pulse 90 12/01/2024 8:58 AM CDT Temperature 36.4 C (97.6 F) 10/01/2024 3:07 AM FINANCIAL ASSISTANCE SPECIALIST Respiratory Rate 18 10/01/2024 3:07 AM FINANCIAL ASSISTANCE SPECIALIST Oxygen Saturation 94% 12/01/2024 8:58 AM CDT Inhaled Oxygen Concentration - - Weight 94.8 kg (209 lb) 12/01/2024 8:58 AM CDT Height 165.1 cm (5' 5 ) 12/01/2024 8:58 AM CDT Body Mass Index 34.78 12/01/2024 8:58 AM CDT Plan of Treatment Health Maintenance Due Date Last Done Comments Albumin Creatinine Ratio, Urine 1974 Breast Cancer Screening-Mammogram 1974 Depression Screening 1974 Foot Exam 1974 Hepatitis C Screening 1974 Dilated Eye Exam 1984 Regular Well Visit/Exam 18-64 1992 Pneumococcal vaccine <65 (1 of 2 - PCV) 1993 Colon Cancer Screening-Colonoscopy 06/07/20242013 Hemoglobin A1C 03/13/2025 09/13/2024, 04/10, 09/22/2021, Additional history exists Influenza Vaccine (Season Ended) 2025 eGFR 10/01/2025 10/01/2024, 09/11, 09/28/2024, Additional history exists TSH Level 10/15/2025 10/15/2024, 02/0 03/2025, 04/25/2022, Additional history exists Lipid Panel 12/01/2025 12/01/2024, 02/0 01/2024, 04/20/2021, Additional history exists DTaP/Tdap/Td Vaccine (6 - Td or Tdap) 08/04/2029 08/04/2019, 05/29/1977, 01/17/1976, Additional history exists Hepatitis B Screening Completed 06/21/1999 Procedures Procedure Name Priority Date/Time Associated Diagnosis Comments POCT LIPID PANEL Routine 12/01/2024 8:57 AM CDT Lipid screening CARDIOLOGY DOCUMENT SCAN Routine 11/06/2024 1:01 PM CDT CARDIOLOGY DOCUMENT SCAN Routine 11/05/2024 12:57 PM CDT CARDIOLOGY DOCUMENT SCAN Routine 11/04/2024 12:54 PM CDT CARDIOLOGY DOCUMENT SCAN Routine 11/03/2024 12:44 PM CDT CARDIOLOGY DOCUMENT SCAN Routine 11/02/2024 12:39 PM CDT CARDIOLOGY DOCUMENT SCAN Routine 11/01/2024 12:23 PM CDT CARDIOLOGY DOCUMENT SCAN Routine 10/31/2024 11:58 AM CDT CARDIOLOGY DOCUMENT SCAN Routine 10/29/2024 11:46 AM CDT POCT GLUCOSE DEVICE Routine 10/01/2024 4 :34 PM FINANCIAL ASSISTANCE SPECIALIST POCT GLUCOSE DEVICE Routine 10/01/2024 11:48 AM FINANCIAL ASSISTANCE SPECIALIST XR CHEST 1 VIEW IP Routine 10/01/2024 9:10 AM FINANCIAL ASSISTANCE SPECIALIST EGFR Routine 10/01/2024 6:57 AM FINANCIAL ASSISTANCE SPECIALIST BASIC METABOLIC PANEL Routine 10/01/2024 6:57 AM FINANCIAL ASSISTANCE SPECIALIST MAGNESIUM Routine 10/01/2024 6:57 AM FINANCIAL ASSISTANCE SPECIALIST POCT GLUCOSE DEVICE Routine 10/01/2024 6 :04 AM FINANCIAL ASSISTANCE SPECIALIST POCT GLUCOSE DEVICE Routine 10/01/2024 2 :00 AM FINANCIAL ASSISTANCE SPECIALIST POCT GLUCOSE DEVICE Routine 09/30/2024 9 :45 PM FINANCIAL ASSISTANCE SPECIALIST POCT GLUCOSE DEVICE Routine 09/30/2024 4 :52 PM FINANCIAL ASSISTANCE SPECIALIST POCT GLUCOSE DEVICE Routine 09/30/2024 11:39 AM FINANCIAL ASSISTANCE SPECIALIST POCT GLUCOSE DEVICE Routine 09/30/2024 8 :36 AM FINANCIAL ASSISTANCE SPECIALIST POCT GLUCOSE DEVICE Routine 09/30/2024 5 :29 AM FINANCIAL ASSISTANCE SPECIALIST POCT GLUCOSE DEVICE Routine 09/30/2024 2 :22 AM FINANCIAL ASSISTANCE SPECIALIST POCT GLUCOSE DEVICE Routine 09/29/2024 8 :35 PM FINANCIAL ASSISTANCE SPECIALIST POCT GLUCOSE DEVICE Routine 09/29/2024 5 :35 PM FINANCIAL ASSISTANCE SPECIALIST EGFR Routine 09/29/2024 3:33 PM FINANCIAL ASSISTANCE SPECIALIST DIFFERENTIAL AUTO Routine 09/29/2024 3:3 3 PM FINANCIAL ASSISTANCE SPECIALIST COMPREHENSIVE METABOLIC PANEL Routine 09/29/2024 3:33 PM FINANCIAL ASSISTANCE SPECIALIST CBC WITH AUTO DIFFERENTIAL Routine 09/29/2024 3:33 PM FINANCIAL ASSISTANCE SPECIALIST POCT GLUCOSE DEVICE Routine 09/29/2024 1 :43 PM FINANCIAL ASSISTANCE SPECIALIST POCT GLUCOSE DEVICE Routine 09/29/2024 9 :49 AM FINANCIAL ASSISTANCE SPECIALIST POCT GLUCOSE DEVICE Routine 09/29/2024 7 :27 AM FINANCIAL ASSISTANCE SPECIALIST POCT GLUCOSE DEVICE Routine 09/29/2024 5 :31 AM FINANCIAL ASSISTANCE SPECIALIST POCT GLUCOSE DEVICE Routine 09/29/2024 1 :25 AM FINANCIAL ASSISTANCE SPECIALIST POCT GLUCOSE DEVICE Routine 09/28/2024 9 :14 PM FINANCIAL ASSISTANCE SPECIALIST POCT GLUCOSE DEVICE Routine 09/28/2024 5 :12 PM FINANCIAL ASSISTANCE SPECIALIST POCT GLUCOSE DEVICE Routine 09/28/2024 1 :43 PM FINANCIAL ASSISTANCE SPECIALIST POCT GLUCOSE DEVICE Routine 09/28/2024 9 :16 AM FINANCIAL ASSISTANCE SPECIALIST EGFR Routine 09/28/2024 7:09 AM FINANCIAL ASSISTANCE SPECIALIST DIFFERENTIAL AUTO Routine 09/28/2024 7:0 9 AM FINANCIAL ASSISTANCE SPECIALIST COMPREHENSIVE METABOLIC PANEL Routine 09/28/2024 7:09 AM FINANCIAL ASSISTANCE SPECIALIST CBC WITH AUTO DIFFERENTIAL Routine 09/28/2024 7:09 AM FINANCIAL ASSISTANCE SPECIALIST POCT GLUCOSE DEVICE Routine 09/28/2024 5 :42 AM FINANCIAL ASSISTANCE SPECIALIST POCT GLUCOSE DEVICE Routine 09/28/2024 1 :31 AM FINANCIAL ASSISTANCE SPECIALIST POCT GLUCOSE DEVICE Routine 09/27/2024 9 :14 PM FINANCIAL ASSISTANCE SPECIALIST POCT GLUCOSE DEVICE Routine 09/27/2024 5 :25 PM FINANCIAL ASSISTANCE SPECIALIST POCT GLUCOSE DEVICE Routine 09/27/2024 3 :13 PM FINANCIAL ASSISTANCE SPECIALIST FL MODIFIED BARIUM SWALLOW W VIDEO IP Routine 09/27/2024 2:20 PM FINANCIAL ASSISTANCE SPECIALIST POCT GLUCOSE DEVICE Routine 09/27/2024 10:05 AM FINANCIAL ASSISTANCE SPECIALIST ADD ON LAB TEST Add-On 09/27/2024 8:43 AM FINANCIAL ASSISTANCE SPECIALIST POCT GLUCOSE DEVICE Routine 09/27/2024 5 :57 AM FINANCIAL ASSISTANCE SPECIALIST IRON PROFILE W/ IBC Routine 09/27/2024 5 :42 AM FINANCIAL ASSISTANCE SPECIALIST EGFR Routine 09/27/2024 5:42 AM FINANCIAL ASSISTANCE SPECIALIST DIFFERENTIAL AUTO Routine 09/27/2024 5:4 2 AM FINANCIAL ASSISTANCE SPECIALIST COMPREHENSIVE METABOLIC PANEL Routine 09/27/2024 5:42 AM FINANCIAL ASSISTANCE SPECIALIST CBC WITH AUTO DIFFERENTIAL Routine 09/27/2024 5:42 AM FINANCIAL ASSISTANCE SPECIALIST POCT GLUCOSE DEVICE Routine 09/27/2024 2 :14 AM FINANCIAL ASSISTANCE SPECIALIST POCT GLUCOSE DEVICE Routine 09/26/2024 9 :41 PM FINANCIAL ASSISTANCE SPECIALIST POCT GLUCOSE DEVICE Routine 09/26/2024 6 :18 PM FINANCIAL ASSISTANCE SPECIALIST POCT GLUCOSE DEVICE Routine 09/26/2024 2 :51 PM FINANCIAL ASSISTANCE SPECIALIST CBC WITH AUTO DIFFERENTIAL STAT 09/26/2024 2:03 PM FINANCIAL ASSISTANCE SPECIALIST EGFR Routine 09/26/2024 1:25 PM FINANCIAL ASSISTANCE SPECIALIST DIFFERENTIAL AUTO Routine 09/26/2024 1:2 5 PM FINANCIAL ASSISTANCE SPECIALIST COMPREHENSIVE METABOLIC PANEL Routine 09/26/2024 1:25 PM FINANCIAL ASSISTANCE SPECIALIST CBC WITH AUTO DIFFERENTIAL Routine 09/26/2024 1:25 PM FINANCIAL ASSISTANCE SPECIALIST POCT GLUCOSE DEVICE Routine 09/26/2024 10:10 AM FINANCIAL ASSISTANCE SPECIALIST POCT GLUCOSE DEVICE Routine 09/26/2024 5 :04 AM FINANCIAL ASSISTANCE SPECIALIST C. DIFFICILE TESTING Routine 09/26/2024 2:18 AM FINANCIAL ASSISTANCE SPECIALIST POCT GLUCOSE DEVICE Routine 09/26/2024 12:01 AM FINANCIAL ASSISTANCE SPECIALIST POCT GLUCOSE DEVICE Routine 09/25/2024 8 :35 PM FINANCIAL ASSISTANCE SPECIALIST POCT GLUCOSE DEVICE Routine 09/25/2024 4 :36 PM FINANCIAL ASSISTANCE SPECIALIST POCT GLUCOSE DEVICE Routine 09/25/2024 11:55 AM FINANCIAL ASSISTANCE SPECIALIST POCT GLUCOSE DEVICE Routine 09/25/2024 8 :32 AM FINANCIAL ASSISTANCE SPECIALIST EGFR Routine 09/25/2024 8:32 AM FINANCIAL ASSISTANCE SPECIALIST DIFFERENTIAL AUTO Routine 09/25/2024 8:3 2 AM FINANCIAL ASSISTANCE SPECIALIST COMPREHENSIVE METABOLIC PANEL Routine 09/25/2024 8:32 AM FINANCIAL ASSISTANCE SPECIALIST CBC WITH AUTO DIFFERENTIAL Routine 09/25/2024 8:32 AM FINANCIAL ASSISTANCE SPECIALIST POCT GLUCOSE DEVICE Routine 09/25/2024 4 :49 AM FINANCIAL ASSISTANCE SPECIALIST POCT GLUCOSE DEVICE Routine 09/25/2024 12:48 AM FINANCIAL ASSISTANCE SPECIALIST POCT GLUCOSE DEVICE Routine 09/24/2024 8 :56 PM FINANCIAL ASSISTANCE SPECIALIST POCT GLUCOSE DEVICE Routine 09/24/2024 4 :20 PM FINANCIAL ASSISTANCE SPECIALIST POCT GLUCOSE DEVICE Routine 09/24/2024 12:13 PM FINANCIAL ASSISTANCE SPECIALIST XR CHEST 1 VIEW IP Routine 09/24/2024 8:18 AM FINANCIAL ASSISTANCE SPECIALIST POCT GLUCOSE DEVICE Routine 09/24/2024 4 :12 AM FINANCIAL ASSISTANCE SPECIALIST POCT GLUCOSE DEVICE Routine 09/24/2024 2 :44 AM FINANCIAL ASSISTANCE SPECIALIST POCT GLUCOSE DEVICE Routine 09/24/2024 1 :06 AM FINANCIAL ASSISTANCE SPECIALIST POCT GLUCOSE DEVICE Routine 09/24/2024 12:44 AM FINANCIAL ASSISTANCE SPECIALIST POCT GLUCOSE DEVICE Routine 09/24/2024 12:22 AM FINANCIAL ASSISTANCE SPECIALIST POCT GLUCOSE DEVICE Routine 09/23/2024 9 :34 PM FINANCIAL ASSISTANCE SPECIALIST POCT GLUCOSE DEVICE Routine 09/23/2024 4 :10 PM FINANCIAL ASSISTANCE SPECIALIST POCT GLUCOSE DEVICE Routine 09/23/2024 1 :10 PM FINANCIAL ASSISTANCE SPECIALIST POCT GLUCOSE DEVICE Routine 09/23/2024 12:18 PM FINANCIAL ASSISTANCE SPECIALIST POCT GLUCOSE DEVICE Routine 09/23/2024 11:55 AM FINANCIAL ASSISTANCE SPECIALIST POCT GLUCOSE DEVICE Routine 09/23/2024 11:54 AM FINANCIAL ASSISTANCE SPECIALIST POCT GLUCOSE DEVICE Routine 09/23/2024 7 :47 AM FINANCIAL ASSISTANCE SPECIALIST POCT GLUCOSE DEVICE Routine 09/23/2024 3 :27 AM FINANCIAL ASSISTANCE SPECIALIST POCT GLUCOSE DEVICE Routine 09/23/2024 1 :13 AM FINANCIAL ASSISTANCE SPECIALIST POCT GLUCOSE DEVICE Routine 09/23/2024 12:17 AM FINANCIAL ASSISTANCE SPECIALIST POCT GLUCOSE DEVICE Routine 09/22/2024 11:54 PM FINANCIAL ASSISTANCE SPECIALIST BLOOD GAS, ARTERIAL STAT 09/22/2024 8 :33 PM FINANCIAL ASSISTANCE SPECIALIST POCT GLUCOSE DEVICE Routine 09/22/2024 7 :46 PM FINANCIAL ASSISTANCE SPECIALIST POCT GLUCOSE DEVICE Routine 09/22/2024 4 :04 PM FINANCIAL ASSISTANCE SPECIALIST EXTUBATION Routine 09/22/2024 3:48 PM FINANCIAL ASSISTANCE SPECIALIST POCT GLUCOSE DEVICE Routine 09/22/2024 11:51 AM FINANCIAL ASSISTANCE SPECIALIST POCT GLUCOSE DEVICE Routine 09/22/2024 8:42 AM FINANCIAL ASSISTANCE SPECIALIST POCT GLUCOSE DEVICE Routine 09/22/2024 4 :05 AM FINANCIAL ASSISTANCE SPECIALIST XR CHEST 1 VIEW IP Routine 09/22/2024 3:59 AM FINANCIAL ASSISTANCE SPECIALIST EGFR Routine 09/22/2024 2:24 AM FINANCIAL ASSISTANCE SPECIALIST CBC WITHOUT DIFFERENTIAL Routine 09/22/2024 2:24 AM FINANCIAL ASSISTANCE SPECIALIST MAGNESIUM Routine 09/22/2024 2:24 AM FINANCIAL ASSISTANCE SPECIALIST RENAL FUNCTION PANEL Routine 09/22/2024 2:24 AM FINANCIAL ASSISTANCE SPECIALIST POCT GLUCOSE DEVICE Routine 09/21/2024 11:58 PM FINANCIAL ASSISTANCE SPECIALIST POCT GLUCOSE DEVICE Routine 09/21/2024 7 :01 PM FINANCIAL ASSISTANCE SPECIALIST POCT GLUCOSE DEVICE Routine 09/21/2024 3 :10 PM FINANCIAL ASSISTANCE SPECIALIST POTASSIUM LEVEL STAT 09/21/2024 2:07 PM FINANCIAL ASSISTANCE SPECIALIST POCT GLUCOSE DEVICE Routine 09/21/2024 11:30 AM FINANCIAL ASSISTANCE SPECIALIST POCT GLUCOSE DEVICE Routine 09/21/2024 7 :19 AM FINANCIAL ASSISTANCE SPECIALIST XR CHEST 1 VIEW IP Routine 09/21/2024 4:44 AM FINANCIAL ASSISTANCE SPECIALIST POCT GLUCOSE DEVICE Routine 09/21/2024 3 :47 AM FINANCIAL ASSISTANCE SPECIALIST EGFR Routine 09/21/2024 1:48 AM FINANCIAL ASSISTANCE SPECIALIST PHOSPHORUS Routine 09/21/2024 1:48 AM FINANCIAL ASSISTANCE SPECIALIST BILIRUBIN, DIRECT Routine 09/21/2024 1:4 8 AM FINANCIAL ASSISTANCE SPECIALIST COMPREHENSIVE METABOLIC PANEL Routine 09/21/2024 1:48 AM FINANCIAL ASSISTANCE SPECIALIST CBC WITHOUT DIFFERENTIAL Routine 09/21/2024 1:48 AM FINANCIAL ASSISTANCE SPECIALIST MAGNESIUM Routine 09/21/2024 1:48 AM FINANCIAL ASSISTANCE SPECIALIST POCT GLUCOSE DEVICE Routine 09/20/2024 11:54 PM FINANCIAL ASSISTANCE SPECIALIST POCT GLUCOSE DEVICE Routine 09/20/2024 7 :03 PM FINANCIAL ASSISTANCE SPECIALIST POCT GLUCOSE DEVICE Routine 09/20/2024 3 :28 PM FINANCIAL ASSISTANCE SPECIALIST POCT GLUCOSE DEVICE Routine 09/20/2024 11:48 AM FINANCIAL ASSISTANCE SPECIALIST BLOOD GAS, ARTERIAL STAT 09/20/2024 10:54 AM FINANCIAL ASSISTANCE SPECIALIST XR CHEST 1 VIEW ED Urgent/IP Urgent 09/20/2024 9:17 AM FINANCIAL ASSISTANCE SPECIALIST POCT GLUCOSE DEVICE Routine 09/20/2024 7 :20 AM FINANCIAL ASSISTANCE SPECIALIST POCT GLUCOSE DEVICE Routine 09/20/2024 3 :37 AM FINANCIAL ASSISTANCE SPECIALIST EGFR Routine 09/20/2024 12:27 AM FINANCIAL ASSISTANCE SPECIALIST DIFFERENTIAL AUTO Routine 09/20/2024 12:27 AM FINANCIAL ASSISTANCE SPECIALIST COMPREHENSIVE METABOLIC PANEL Routine 09/20/2024 12:27 AM FINANCIAL ASSISTANCE SPECIALIST CBC WITH AUTO DIFFERENTIAL Routine 09/20/2024 12:27 AM FINANCIAL ASSISTANCE SPECIALIST POCT GLUCOSE DEVICE Routine 09/19/2024 11:00 PM FINANCIAL ASSISTANCE SPECIALIST POCT GLUCOSE DEVICE Routine 09/19/2024 7 :52 PM FINANCIAL ASSISTANCE SPECIALIST POCT GLUCOSE DEVICE Routine 09/19/2024 4 :55 PM FINANCIAL ASSISTANCE SPECIALIST POCT GLUCOSE DEVICE Routine 09/19/2024 12:31 PM FINANCIAL ASSISTANCE SPECIALIST POTASSIUM LEVEL Timed 09/19/2024 10:04 AM FINANCIAL ASSISTANCE SPECIALIST EEG Routine 09/19/2024 8:50 AM FINANCIAL ASSISTANCE SPECIALIST POCT GLUCOSE DEVICE Routine 09/19/2024 7 :53 AM FINANCIAL ASSISTANCE SPECIALIST POCT GLUCOSE DEVICE Routine 09/19/2024 3 :58 AM FINANCIAL ASSISTANCE SPECIALIST MANUAL DIFFERENTIAL Routine 09/19/2024 1 :46 AM FINANCIAL ASSISTANCE SPECIALIST EGFR Routine 09/19/2024 1:46 AM FINANCIAL ASSISTANCE SPECIALIST DIFFERENTIAL AUTO Routine 09/19/2024 1:4 6 AM FINANCIAL ASSISTANCE SPECIALIST CBC WITH AUTO DIFFERENTIAL Routine 09/19/2024 1:46 AM FINANCIAL ASSISTANCE SPECIALIST MAGNESIUM Routine 09/19/2024 1:46 AM FINANCIAL ASSISTANCE SPECIALIST PHOSPHORUS Routine 09/19/2024 1:46 AM FINANCIAL ASSISTANCE SPECIALIST COMPREHENSIVE METABOLIC PANEL Routine 09/19/2024 1:46 AM FINANCIAL ASSISTANCE SPECIALIST AMMONIA STAT 09/19/2024 1:07 AM FINANCIAL ASSISTANCE SPECIALIST POCT GLUCOSE DEVICE Routine 09/18/2024 11:58 PM FINANCIAL ASSISTANCE SPECIALIST POCT GLUCOSE DEVICE Routine 09/18/2024 9 :10 PM FINANCIAL ASSISTANCE SPECIALIST POCT GLUCOSE DEVICE Routine 09/18/2024 4 :18 PM FINANCIAL ASSISTANCE SPECIALIST POCT GLUCOSE DEVICE Routine 09/18/2024 12:07 PM FINANCIAL ASSISTANCE SPECIALIST DIC SCHISTOCYTES STAT 09/18/2024 8:13 AM FINANCIAL ASSISTANCE SPECIALIST DIC PLATELET STAT 09/18/2024 8:13 AM FINANCIAL ASSISTANCE SPECIALIST DIFFERENTIAL AUTO STAT 09/18/2024 8:1 3 AM FINANCIAL ASSISTANCE SPECIALIST CBC WITH AUTO DIFFERENTIAL STAT 09/18/2024 8:13 AM FINANCIAL ASSISTANCE SPECIALIST DIC PROFILE Routine 09/18/2024 8:13 AM FINANCIAL ASSISTANCE SPECIALIST POCT GLUCOSE DEVICE Routine 09/18/2024 7 :57 AM FINANCIAL ASSISTANCE SPECIALIST POCT GLUCOSE DEVICE Routine 09/18/2024 7 :56 AM FINANCIAL ASSISTANCE SPECIALIST EGFR Routine 09/18/2024 7:26 AM FINANCIAL ASSISTANCE SPECIALIST VITAMIN B12 Routine 09/18/2024 7:26 AM FINANCIAL ASSISTANCE SPECIALIST PHOSPHORUS Routine 09/18/2024 7:26 AM FINANCIAL ASSISTANCE SPECIALIST MAGNESIUM Routine 09/18/2024 7:26 AM FINANCIAL ASSISTANCE SPECIALIST COMPREHENSIVE METABOLIC PANEL Routine 09/18/2024 7:26 AM FINANCIAL ASSISTANCE SPECIALIST POCT GLUCOSE DEVICE Routine 09/18/2024 4 :28 AM FINANCIAL ASSISTANCE SPECIALIST DIC COAGULATION Routine 09/18/2024 4:20 AM FINANCIAL ASSISTANCE SPECIALIST POCT GLUCOSE DEVICE Routine 09/17/2024 11:57 PM FINANCIAL ASSISTANCE SPECIALIST POCT GLUCOSE DEVICE Routine 09/17/2024 8 :02 PM FINANCIAL ASSISTANCE SPECIALIST POCT GLUCOSE DEVICE Routine 09/17/2024 4 :21 PM FINANCIAL ASSISTANCE SPECIALIST EGFR Timed 09/17/2024 2:52 PM FINANCIAL ASSISTANCE SPECIALIST RENAL FUNCTION PANEL Timed 09/17/2024 2:52 PM FINANCIAL ASSISTANCE SPECIALIST POCT GLUCOSE DEVICE Routine 09/17/2024 12:23 PM FINANCIAL ASSISTANCE SPECIALIST POCT GLUCOSE DEVICE Routine 09/17/2024 7 :09 AM FINANCIAL ASSISTANCE SPECIALIST POCT GLUCOSE DEVICE Routine 09/17/2024 4 :42 AM FINANCIAL ASSISTANCE SPECIALIST MANUAL DIFFERENTIAL Routine 09/17/2024 4 :10 AM FINANCIAL ASSISTANCE SPECIALIST EGFR Routine 09/17/2024 4:10 AM FINANCIAL ASSISTANCE SPECIALIST HAPTOGLOBIN Routine 09/17/2024 4:10 AM FINANCIAL ASSISTANCE SPECIALIST THYROID FUNCTION CASCADE Routine 09/17/2024 4:10 AM FINANCIAL ASSISTANCE SPECIALIST MAGNESIUM Routine 09/17/2024 4:10 AM FINANCIAL ASSISTANCE SPECIALIST PHOSPHORUS Routine 09/17/2024 4:10 AM FINANCIAL ASSISTANCE SPECIALIST CBC WITH AUTO DIFFERENTIAL Routine 09/17/2024 4:10 AM FINANCIAL ASSISTANCE SPECIALIST COMPREHENSIVE METABOLIC PANEL Routine 09/17/2024 4:10 AM FINANCIAL ASSISTANCE SPECIALIST XR CHEST 1 VIEW IP Routine 09/17/2024 2:59 AM FINANCIAL ASSISTANCE SPECIALIST POCT GLUCOSE DEVICE Routine 09/16/2024 11:48 PM FINANCIAL ASSISTANCE SPECIALIST POCT GLUCOSE DEVICE Routine 09/16/2024 8 :12 PM FINANCIAL ASSISTANCE SPECIALIST POCT GLUCOSE DEVICE Routine 09/16/2024 4 :04 PM FINANCIAL ASSISTANCE SPECIALIST POCT GLUCOSE DEVICE Routine 09/16/2024 12:27 PM FINANCIAL ASSISTANCE SPECIALIST US VEIN DUPLEX LOWER EXTREMITY BILATERAL COMPLETE IP Routine 09/16/2024 11:24 AM FINANCIAL ASSISTANCE SPECIALIST W[place] INSJ NON-TUNNELED CENTRAL VENOUS CATH AGE 5 YR/> Routine 09/16/2024 8:53 AM FINANCIAL ASSISTANCE SPECIALIST MSSA bacteremia BLOOD CULTURE STAT 09/16/2024 8:53 AM FINANCIAL ASSISTANCE SPECIALIST BLOOD CULTURE STAT 09/16/2024 8:45 AM FINANCIAL ASSISTANCE SPECIALIST POCT GLUCOSE DEVICE Routine 09/16/2024 7 :33 AM FINANCIAL ASSISTANCE SPECIALIST MANUAL DIFFERENTIAL STAT 09/16/2024 5 :30 AM FINANCIAL ASSISTANCE SPECIALIST CBC WITH AUTO DIFFERENTIAL STAT 09/16/2024 5:30 AM FINANCIAL ASSISTANCE SPECIALIST POCT GLUCOSE DEVICE Routine 09/16/2024 5 :23 AM FINANCIAL ASSISTANCE SPECIALIST XR CHEST 1 VIEW Routine 09/16/2024 4:37 AM FINANCIAL ASSISTANCE SPECIALIST TRIGLYCERIDES Routine 09/16/2024 4:05 AM FINANCIAL ASSISTANCE SPECIALIST EGFR Routine 09/16/2024 4:05 AM FINANCIAL ASSISTANCE SPECIALIST MAGNESIUM Routine 09/16/2024 4:05 AM FINANCIAL ASSISTANCE SPECIALIST RENAL FUNCTION PANEL Routine 09/16/2024 4:05 AM FINANCIAL ASSISTANCE SPECIALIST BLOOD CULTURE STAT 09/16/2024 4:05 AM FINANCIAL ASSISTANCE SPECIALIST POCT GLUCOSE DEVICE Routine 09/16/2024 3 :45 AM FINANCIAL ASSISTANCE SPECIALIST MRI BRAIN WO CONTRAST IP Routine 09/16/2024 1:48 AM FINANCIAL ASSISTANCE SPECIALIST POCT GLUCOSE DEVICE Routine 09/16/2024 1 :06 AM FINANCIAL ASSISTANCE SPECIALIST POCT GLUCOSE DEVICE Routine 09/16/2024 12:01 AM FINANCIAL ASSISTANCE SPECIALIST POCT GLUCOSE DEVICE Routine 09/15/2024 9 :09 PM FINANCIAL ASSISTANCE SPECIALIST POCT GLUCOSE DEVICE Routine 09/15/2024 7 :41 PM FINANCIAL ASSISTANCE SPECIALIST POCT GLUCOSE DEVICE Routine 09/15/2024 5 :12 PM FINANCIAL ASSISTANCE SPECIALIST POCT GLUCOSE DEVICE Routine 09/15/2024 3 :05 PM FINANCIAL ASSISTANCE SPECIALIST AEROBIC CULTURE AND GRAM STAIN Routine 09/15/2024 1:57 PM FINANCIAL ASSISTANCE SPECIALIST TRANSESOPHAGEAL ECHO (DEMI) W DOPPLER/CF WO CONTRAST Routine 09/15/2024 1:43 PM FINANCIAL ASSISTANCE SPECIALIST POCT GLUCOSE DEVICE Routine 09/15/2024 1 :05 PM FINANCIAL ASSISTANCE SPECIALIST XR CHEST 1 VIEW Critical/Life- Threatening 09/15/2024 11:41 AM FINANCIAL ASSISTANCE SPECIALIST BLOOD GAS, ARTERIAL STAT 09/15/2024 11:34 AM FINANCIAL ASSISTANCE SPECIALIST POCT GLUCOSE DEVICE Routine 09/15/2024 11:07 AM FINANCIAL ASSISTANCE SPECIALIST INTUBATION Routine 09/15/2024 10:31 AM FINANCIAL ASSISTANCE SPECIALIST Toxic metabolic encephalopathy MONITOR EXHALED CO2 Routine 09/15/2024 10:30 AM FINANCIAL ASSISTANCE SPECIALIST POCT GLUCOSE DEVICE Routine 09/15/2024 9 :16 AM FINANCIAL ASSISTANCE SPECIALIST POCT GLUCOSE DEVICE Routine 09/15/2024 7 :06 AM FINANCIAL ASSISTANCE SPECIALIST POCT GLUCOSE DEVICE Routine 09/15/2024 5 :27 AM FINANCIAL ASSISTANCE SPECIALIST POCT GLUCOSE DEVICE Routine 09/15/2024 3 :51 AM FINANCIAL ASSISTANCE SPECIALIST APTT Timed 09/15/2024 3:48 AM FINANCIAL ASSISTANCE SPECIALIST XR CHEST 1 VIEW IP Routine 09/15/2024 3:41 AM FINANCIAL ASSISTANCE SPECIALIST EGFR Routine 09/15/2024 1:50 AM FINANCIAL ASSISTANCE SPECIALIST PHOSPHORUS Routine 09/15/2024 1:50 AM FINANCIAL ASSISTANCE SPECIALIST BILIRUBIN, DIRECT Routine 09/15/2024 1:5 0 AM FINANCIAL ASSISTANCE SPECIALIST COMPREHENSIVE METABOLIC PANEL Routine 09/15/2024 1:50 AM FINANCIAL ASSISTANCE SPECIALIST CBC WITHOUT DIFFERENTIAL Routine 09/15/2024 1:50 AM FINANCIAL ASSISTANCE SPECIALIST MAGNESIUM Routine 09/15/2024 1:50 AM FINANCIAL ASSISTANCE SPECIALIST POCT GLUCOSE DEVICE Routine 09/15/2024 12:53 AM FINANCIAL ASSISTANCE SPECIALIST POCT GLUCOSE DEVICE Routine 09/14/2024 11:15 PM FINANCIAL ASSISTANCE SPECIALIST APTT Timed 09/14/2024 9:19 PM FINANCIAL ASSISTANCE SPECIALIST POCT GLUCOSE DEVICE Routine 09/14/2024 9 :16 PM FINANCIAL ASSISTANCE SPECIALIST POCT GLUCOSE DEVICE Routine 09/14/2024 7 :20 PM FINANCIAL ASSISTANCE SPECIALIST POCT GLUCOSE DEVICE Routine 09/14/2024 6 :16 PM FINANCIAL ASSISTANCE SPECIALIST POCT GLUCOSE DEVICE Routine 09/14/2024 4 :55 PM FINANCIAL ASSISTANCE SPECIALIST POCT GLUCOSE DEVICE Routine 09/14/2024 4 :10 PM FINANCIAL ASSISTANCE SPECIALIST POCT GLUCOSE DEVICE Routine 09/14/2024 3 :03 PM FINANCIAL ASSISTANCE SPECIALIST EGFR Timed 09/14/2024 1:05 PM FINANCIAL ASSISTANCE SPECIALIST RENAL FUNCTION PANEL Timed 09/14/2024 1:05 PM FINANCIAL ASSISTANCE SPECIALIST APTT Timed 09/14/2024 1:05 PM FINANCIAL ASSISTANCE SPECIALIST POCT GLUCOSE DEVICE Routine 09/14/2024 12:55 PM FINANCIAL ASSISTANCE SPECIALIST POCT GLUCOSE DEVICE Routine 09/14/2024 12:01 PM FINANCIAL ASSISTANCE SPECIALIST POCT GLUCOSE DEVICE Routine 09/14/2024 11:05 AM FINANCIAL ASSISTANCE SPECIALIST POCT GLUCOSE DEVICE Routine 09/14/2024 10:04 AM FINANCIAL ASSISTANCE SPECIALIST BLOOD CULTURE STAT 09/14/2024 9:42 AM FINANCIAL ASSISTANCE SPECIALIST BLOOD CULTURE STAT 09/14/2024 9:42 AM FINANCIAL ASSISTANCE SPECIALIST POCT GLUCOSE DEVICE Routine 09/14/2024 8 :56 AM FINANCIAL ASSISTANCE SPECIALIST BLOOD GAS, ARTERIAL STAT 09/14/2024 8 :08 AM FINANCIAL ASSISTANCE SPECIALIST POCT GLUCOSE DEVICE Routine 09/14/2024 7 :50 AM FINANCIAL ASSISTANCE SPECIALIST APTT Timed 09/14/2024 6:06 AM FINANCIAL ASSISTANCE SPECIALIST POCT GLUCOSE DEVICE Routine 09/14/2024 4 :10 AM FINANCIAL ASSISTANCE SPECIALIST XR CHEST 1 VIEW IP Routine 09/14/2024 3:10 AM FINANCIAL ASSISTANCE SPECIALIST MANUAL DIFFERENTIAL Routine 09/14/2024 1 :59 AM FINANCIAL ASSISTANCE SPECIALIST EGFR Routine 09/14/2024 1:59 AM FINANCIAL ASSISTANCE SPECIALIST PHOSPHORUS Routine 09/14/2024 1:59 AM FINANCIAL ASSISTANCE SPECIALIST BILIRUBIN, DIRECT Routine 09/14/2024 1:5 9 AM FINANCIAL ASSISTANCE SPECIALIST COMPREHENSIVE METABOLIC PANEL Routine 09/14/2024 1:59 AM FINANCIAL ASSISTANCE SPECIALIST CBC WITHOUT DIFFERENTIAL Routine 09/14/2024 1:59 AM FINANCIAL ASSISTANCE SPECIALIST MAGNESIUM Routine 09/14/2024 1:59 AM FINANCIAL ASSISTANCE SPECIALIST POCT GLUCOSE DEVICE Routine 09/14/2024 12:41 AM FINANCIAL ASSISTANCE SPECIALIST APTT Timed 09/13/2024 9:58 PM FINANCIAL ASSISTANCE SPECIALIST XR ABDOMEN ERECT AND OR DECUBITS 2 VIEWS IP Routine 09/13/2024 9:41 PM FINANCIAL ASSISTANCE SPECIALIST POCT GLUCOSE DEVICE Routine 09/13/2024 7 :57 PM FINANCIAL ASSISTANCE SPECIALIST EGFR Timed 09/13/2024 6:33 PM FINANCIAL ASSISTANCE SPECIALIST RENAL FUNCTION PANEL Timed 09/13/2024 6:33 PM FINANCIAL ASSISTANCE SPECIALIST ECG 12-LEAD STAT 09/13/2024 5:24 PM FINANCIAL ASSISTANCE SPECIALIST POCT GLUCOSE DEVICE Routine 09/13/2024 4 :29 PM FINANCIAL ASSISTANCE SPECIALIST POCT GLUCOSE DEVICE Routine 09/13/2024 3 :18 PM FINANCIAL ASSISTANCE SPECIALIST POCT GLUCOSE DEVICE Routine 09/13/2024 2 :29 PM FINANCIAL ASSISTANCE SPECIALIST APTT Timed 09/13/2024 2:28 PM FINANCIAL ASSISTANCE SPECIALIST POCT GLUCOSE DEVICE Routine 09/13/2024 1 :10 PM FINANCIAL ASSISTANCE SPECIALIST EGFR Timed 09/13/2024 12:22 PM FINANCIAL ASSISTANCE SPECIALIST PHOSPHORUS Timed 09/13/2024 12:22 PM FINANCIAL ASSISTANCE SPECIALIST MAGNESIUM Timed 09/13/2024 12:22 PM FINANCIAL ASSISTANCE SPECIALIST BASIC METABOLIC PANEL Timed 09/13/2024 12:22 PM FINANCIAL ASSISTANCE SPECIALIST POCT GLUCOSE DEVICE Routine 09/13/2024 12:20 PM FINANCIAL ASSISTANCE SPECIALIST US CAROTIDS DUPLEX BILATERAL IP Routine 09/13/2024 11:55 AM FINANCIAL ASSISTANCE SPECIALIST TRANSTHORACIC ECHO (TTE) COMPLETE W DOPPLER/CF W CONTRAST Routine 09/13/2024 11:24 AM FINANCIAL ASSISTANCE SPECIALIST POCT GLUCOSE DEVICE Routine 09/13/2024 11:12 AM FINANCIAL ASSISTANCE SPECIALIST URINALYSIS, MICROSCOPIC ONLY Routine 09/13/2024 9:45 AM FINANCIAL ASSISTANCE SPECIALIST DIC SCHISTOCYTES STAT 09/13/2024 9:45 AM FINANCIAL ASSISTANCE SPECIALIST DIC PLATELET STAT 09/13/2024 9:45 AM FINANCIAL ASSISTANCE SPECIALIST DIC COAGULATION STAT 09/13/2024 9:45 AM FINANCIAL ASSISTANCE SPECIALIST DRUGS OF ABUSE SCREEN, URINE WITHOUT CONFIRMATION Routine 09/13/2024 9:45 AM FINANCIAL ASSISTANCE SPECIALIST HIT ANTIBODIES W/REFLEX TO SEROTONIN RELEASE ASSAY (ASHLEY) Routine 09/13/2024 9:45 AM FINANCIAL ASSISTANCE SPECIALIST DIC PROFILE STAT 09/13/2024 9:45 AM FINANCIAL ASSISTANCE SPECIALIST AMMONIA STAT 09/13/2024 9:45 AM FINANCIAL ASSISTANCE SPECIALIST URINE CULTURE Routine 09/13/2024 9:45 AM FINANCIAL ASSISTANCE SPECIALIST URINALYSIS AND REFLEX TO MICROSCOPIC AND CULTURE Routine 09/13/2024 9:45 AM FINANCIAL ASSISTANCE SPECIALIST POCT GLUCOSE DEVICE Routine 09/13/2024 9 :31 AM FINANCIAL ASSISTANCE SPECIALIST ADD ON LAB TEST Add-On 09/13/2024 9:25 AM FINANCIAL ASSISTANCE SPECIALIST ADD ON LAB TEST Add-On 09/13/2024 9:25 AM FINANCIAL ASSISTANCE SPECIALIST XR CHEST 1 VIEW Critical/Life- Threatening 09/13/2024 8:30 AM FINANCIAL ASSISTANCE SPECIALIST LIPASE Timed 09/13/2024 8:11 AM FINANCIAL ASSISTANCE SPECIALIST AMYLASE Timed 09/13/2024 8:11 AM FINANCIAL ASSISTANCE SPECIALIST BETA-HYDROXYBUTYRATE Timed 09/13/2024 8:11 AM FINANCIAL ASSISTANCE SPECIALIST EGFR Timed 09/13/2024 8:11 AM FINANCIAL ASSISTANCE SPECIALIST APTT Timed 09/13/2024 8:11 AM FINANCIAL ASSISTANCE SPECIALIST PHOSPHORUS Timed 09/13/2024 8:11 AM FINANCIAL ASSISTANCE SPECIALIST MAGNESIUM Timed 09/13/2024 8:11 AM FINANCIAL ASSISTANCE SPECIALIST BASIC METABOLIC PANEL Timed 09/13/2024 8:11 AM FINANCIAL ASSISTANCE SPECIALIST BLOOD GAS, ARTERIAL STAT 09/13/2024 7 :58 AM FINANCIAL ASSISTANCE SPECIALIST POCT GLUCOSE DEVICE Routine 09/13/2024 7 :54 AM FINANCIAL ASSISTANCE SPECIALIST POCT GLUCOSE DEVICE Routine 09/13/2024 6 :04 AM FINANCIAL ASSISTANCE SPECIALIST BLOOD CULTURE Routine 09/13/2024 5:22 AM FINANCIAL ASSISTANCE SPECIALIST POCT GLUCOSE DEVICE Routine 09/13/2024 5 :06 AM FINANCIAL ASSISTANCE SPECIALIST POCT GLUCOSE DEVICE Routine 09/13/2024 4 :05 AM FINANCIAL ASSISTANCE SPECIALIST CT HEAD WO CONTRAST ED Urgent/IP Urgent 09/13/2024 3:40 AM FINANCIAL ASSISTANCE SPECIALIST POCT GLUCOSE DEVICE Routine 09/13/2024 3 :15 AM FINANCIAL ASSISTANCE SPECIALIST URINALYSIS, MICROSCOPIC ONLY Routine 09/13/2024 2:59 AM FINANCIAL ASSISTANCE SPECIALIST URINE CULTURE Routine 09/13/2024 2:59 AM FINANCIAL ASSISTANCE SPECIALIST URINALYSIS AND REFLEX TO MICROSCOPIC AND CULTURE Routine 09/13/2024 2:59 AM FINANCIAL ASSISTANCE SPECIALIST POCT GLUCOSE DEVICE Routine 09/13/2024 2 :03 AM FINANCIAL ASSISTANCE SPECIALIST ECG 12-LEAD STAT 09/13/2024 1:58 AM FINANCIAL ASSISTANCE SPECIALIST RESPIRATORY PATHOGEN PANEL Routine 09/13/2024 1:50 AM FINANCIAL ASSISTANCE SPECIALIST BLOOD CULTURE Routine 09/13/2024 1:50 AM FINANCIAL ASSISTANCE SPECIALIST EGFR STAT 09/13/2024 1:46 AM FINANCIAL ASSISTANCE SPECIALIST DIFFERENTIAL AUTO STAT 09/13/2024 1:4 6 AM FINANCIAL ASSISTANCE SPECIALIST HEMOGLOBIN A1C Routine 09/13/2024 1:46 AM FINANCIAL ASSISTANCE SPECIALIST TROPONIN T HIGH-SENSITIVITY Routine 09/13/2024 1:46 AM FINANCIAL ASSISTANCE SPECIALIST CBC WITH AUTO DIFFERENTIAL STAT 09/13/2024 1:46 AM FINANCIAL ASSISTANCE SPECIALIST PROTIME-INR STAT 09/13/2024 1:46 AM FINANCIAL ASSISTANCE SPECIALIST APTT STAT 09/13/2024 1:46 AM FINANCIAL ASSISTANCE SPECIALIST PRO B-TYPE NATRIURETIC PEPTIDE STAT 09/13/2024 1:46 AM FINANCIAL ASSISTANCE SPECIALIST PHOSPHORUS STAT 09/13/2024 1:46 AM FINANCIAL ASSISTANCE SPECIALIST MAGNESIUM STAT 09/13/2024 1:46 AM FINANCIAL ASSISTANCE SPECIALIST LACTATE STAT 09/13/2024 1:46 AM FINANCIAL ASSISTANCE SPECIALIST COMPREHENSIVE METABOLIC PANEL STAT 09/13/2024 1:46 AM FINANCIAL ASSISTANCE SPECIALIST TYPE AND SCREEN STAT 09/13/2024 1:46 AM FINANCIAL ASSISTANCE SPECIALIST POCT GLUCOSE DEVICE Routine 09/13/2024 1 :30 AM FINANCIAL ASSISTANCE SPECIALIST COLONOSCOPY REPORT 06/07/2014 from Last 3 Months or Most Recently Relevant to Health Maintenance Results * POCT lipid panel (12/01/2024 8:57 AM CDT) Cholesterol, POC 133 mg/dL HDL, POC 23 mg/dL Triglycerides, POC 170 mg/dL LDL Cholesterol POC 76 mg/dL Chol/HDL Ratio, POC 3.3 Non-HDL Cholesterol, POC 110 mg/dL Cholesterol Total, POC 133 mg/dL Capillary blood 12/01/2024 8 :57 AM CDT Maggie Schmitz NP POINT OF CARE TEST ORDERA BLES Final Result * Cardiology Document Scan (11/06/2024 1:01 PM CDT) Anatomical Region Laterality Modality Other Say Maravilla MD [facility] CARDIAC SERVICES PROCE DURES Final Result * Cardiology Document Scan (11/05/2024 12:57 PM CDT) Anatomical Region Laterality Modality Other us Say Maravilla MD CV CARDIAC SERVICES PROCE DURES Final Result * Cardiology Document Scan (11/04/2024 12:54 PM CDT) Anatomical Region Laterality Modality Other us John Freedman MD CV CARDIAC SERVICES PRO CEDURES Final Result * Cardiology Document Scan (11/03/2024 12:44 PM CDT) Anatomical Region Laterality Modality Other Nolberto Carter MD CV CARDIAC SERVICES PROCEDURES F inal Result * Cardiology Document Scan (11/02/2024 12:39 PM CDT) Anatomical Region Laterality Modality Other John Freedman MD CV CARDIAC SERVICES PRO CEDURES Final Result * Cardiology Document Scan (11/01/2024 12:23 PM CDT) Anatomical Region Laterality Modality Other John Freedman MD CV CARDIAC SERVICES PRO CEDURES Final Result * Cardiology Document Scan (10/31/2024 11:58 AM CDT) Anatomical Region Laterality Modality Other Nolberto Carter MD CV CARDIAC SERVICES PROCEDURES F inal Result * Cardiology Document Scan (10/29/2024 11:46 AM CDT) Anatomical Region Laterality Modality Other John Freedman MD CV CARDIAC SERVICES PRO CEDURES Final Result * POCT glucose (10/01/2024 4:34 PM FINANCIAL ASSISTANCE SPECIALIST) Glucose, POC 143 70 - 199 mg/dL Comment: For Glucose values <35 mg/dl when Hematocrit is >60 mg/dl,the test may not accurately detect significant hypoglycemia,and testing in the Laboratory should be considered if clinically indicated. Blood 10/01/2024 4:34 PM FINANCIAL ASSISTANCE SPECIALIST 10/01/2024 4:34 PM FINANCIAL ASSISTANCE SPECIALIST Chai Beck MD LAB POCT ORDERABLES - DEVICE Final Result [facility] [address] Department [place] [address] * POCT glucose (10/01/2024 11:48 AM FINANCIAL ASSISTANCE SPECIALIST) Glucose, POC 145 70 - 199 mg/dL Comment: For Glucose values <35 mg/dl when Hematocrit is >60 mg/dl,the test may not accurately detect significant hypoglycemia,and testing in the Laboratory should be considered if clinically indicated. Blood 10/01/2024 11:4 8 AM FINANCIAL ASSISTANCE SPECIALIST 10/01/2024 11:48 AM FINANCIAL ASSISTANCE SPECIALIST Chai Beck MD LAB POCT ORDERABLES - DEVICE Final Result [facility] [address] Department [place] [address] * XR Chest 1 View (10/01/2024 9:10 AM FINANCIAL ASSISTANCE SPECIALIST) Anatomical Region Laterality Modality Body, Chest N/A Computed Radiogr aphy 10/01/2024 9:17 AM FINANCIAL ASSISTANCE SPECIALIST Impressions 10/01/2024 9:17 AM FINANCIAL ASSISTANCE SPECIALIST Comparison 09/24/2024 Improvement in the left lower lobe and lingular consolidation. There is now a small left pleural effusion. Right lung is clear. There is no pneumothorax. The cardiomediastinal silhouette is unchanged.. Electronically signed by: Phillip Mathis MD Narrative 10/01/2024 9:17 AM FINANCIAL ASSISTANCE SPECIALIST Chest one view HISTORY: Recent pneumonia treated [...] t * (ABNORMAL) eGFR (10/01/2024 6:57 AM FINANCIAL ASSISTANCE SPECIALIST) [facility] eGFR 54(L) >=60 mL/min/1. 73 m2 Comment: [...] last reviewed 2021. Blood 10/01/2024 6:57 AM FINANCIAL ASSISTANCE SPECIALIST 10/01/2024 7:30 AM FINANCIAL ASSISTANCE SPECIALIST Timothy Augustin MD LAB BLOOD ORDERABLES Final Re sult Performing Organization Address City/[facility]/ZIP Co de Phone Number [facility] [address] Department of [employer] [place], [place] [id number] * Magnesium (10/01/2024 6:57 AM FINANCIAL ASSISTANCE SPECIALIST) [facility] Magnesium 1.5 1.4 - 2.5 mg/dL Blood 10/01/2024 6:57 AM FINANCIAL ASSISTANCE SPECIALIST 10/01/2024 7:30 AM FINANCIAL ASSISTANCE SPECIALIST Arnulfo Jordan MD LAB BLOOD ORDERABLES Final Result Performing Organization Address City/[facility]/ZIP Co de Phone Number [facility] [address] Department [place] [address] * (ABNORMAL) Basic metabolic panel (10/01/2024 6:57 AM FINANCIAL ASSISTANCE SPECIALIST) Sodium 140 135 - 145 mmol/L Potassium, pl 2.9(L) 3.3 - 4.9 mmol/L [facility] Chloride 108 97 - 110 mmol/L [facility] CO2 22 22 - 32 mmol/L [facility] Anion gap 10 2 - 15 mmol/L [facility] BUN 22 6 - 25 mg/dL [facility] Creatinine 1.23(H) 0.60 - 1.10 mg/dL [facility] Glucose 162 70 - 199 mg/dL [facility] Comment: Interpretive Data Fasting glucose >/= 126 [...] 8.5 - 10.3 mg/dL [facility] Blood 10/01/2024 6:57 AM FINANCIAL ASSISTANCE SPECIALIST 10/01/2024 7:30 AM FINANCIAL ASSISTANCE SPECIALIST us Timothy Augustin MD LAB BLOOD ORDERABLES Final Re sult Performing Organization Address City/[facility]/ZIP Co de Phone Number [facility] [address] [place] [address] * POCT glucose (10/01/2024 6:04 AM FINANCIAL ASSISTANCE SPECIALIST) [facility] Signature Glucose, POC 179 70 - 199 mg/dL Comment: For Glucose values <35 mg/dl when Hematocrit is >60 mg/dl,the test may not accurately detect significant hypoglycemia,and testing in the Laboratory should be considered if clinically indicated. Blood 10/01/2024 6:04 AM FINANCIAL ASSISTANCE SPECIALIST 10/01/2024 6:04 AM FINANCIAL ASSISTANCE SPECIALIST us Arnulfo Jordan MD LAB POCT ORDERABLES - DEVIC E Final Result Performing Organization Address City/[facility]/ZIP Co de Phone Number [facility] [address] Department [employer] [place], [place] [id number] * POCT glucose (10/01/2024 2:00 AM FINANCIAL ASSISTANCE SPECIALIST) Glucose, POC 168 70 - 199 mg/dL Comment: For Glucose values <35 mg/dl when Hematocrit is >60 mg/dl,the test may not accurately detect significant hypoglycemia,and testing in the Laboratory should be considered if clinically indicated. Blood 10/01/2024 2:00 AM FINANCIAL ASSISTANCE SPECIALIST 10/01/2024 2:00 AM FINANCIAL ASSISTANCE SPECIALIST Result [facility] Arnulfo Jordan MD LAB POCT ORDERABLES - DEVIC E Final Result Performing Organization Address [facility] Co de Phone Number [facility] [address] [facility] [place] [address] * POCT glucose (09/30/2024 9:45 PM FINANCIAL ASSISTANCE SPECIALIST) Glucose, POC 173 70 - 199 mg/dL Comment: For Glucose values <35 mg/dl when Hematocrit is >60 mg/dl,the test may not accurately detect significant hypoglycemia,and testing in the Laboratory should be considered if clinically indicated. Blood 09/30/2024 9:45 PM FINANCIAL ASSISTANCE SPECIALIST 09/30/2024 9:45 PM FINANCIAL ASSISTANCE SPECIALIST Result [facility] Arnulfo Jordan MD LAB POCT ORDERABLES - DEVIC E Final Result Performing Organization Address [facility] Co de Phone Number [facility] [address] [facility] [place] [address] * (ABNORMAL) POCT glucose (09/30/2024 4:52 PM FINANCIAL ASSISTANCE SPECIALIST) Glucose, POC 213(H) 70 - 199 mg/dL Comment: For Glucose values <35 mg/dl when Hematocrit is >60 mg/dl,the test may not accurately detect significant hypoglycemia,and testing in the Laboratory should be considered if clinically indicated. Blood 09/30/2024 4:52 PM FINANCIAL ASSISTANCE SPECIALIST 09/30/2024 4:52 PM FINANCIAL ASSISTANCE SPECIALIST Result [facility] Arnulfo Jordan MD LAB POCT ORDERABLES - DEVIC E Final Result Performing Organization Address [facility]/ZIP Co de Phone Number [facility] [address] [facility] [place] [address] * POCT glucose (09/30/2024 11:39 AM FINANCIAL ASSISTANCE SPECIALIST) Glucose, POC 139 70 - 199 mg/dL Comment: For Glucose values <35 mg/dl when Hematocrit is >60 mg/dl,the test may not accurately detect significant hypoglycemia,and testing in the Laboratory should be considered if clinically indicated. Blood 09/30/2024 11:3 9 AM FINANCIAL ASSISTANCE SPECIALIST 09/30/2024 11:39 AM FINANCIAL ASSISTANCE SPECIALIST Arnulfo Jordan MD LAB POCT ORDERABLES - DEVIC E Final Result Performing Organization Address [facility] Co de Phone Number [facility] [address] [facility] [place] [address] * POCT glucose (09/30/2024 8:36 AM FINANCIAL ASSISTANCE SPECIALIST) Glucose, POC 116 70 - 199 mg/dL Comment: For Glucose values <35 mg/dl when Hematocrit is >60 mg/dl,the test may not accurately detect significant hypoglycemia,and testing in the Laboratory should be considered if clinically indicated. Blood 09/30/2024 8:36 AM FINANCIAL ASSISTANCE SPECIALIST 09/30/2024 8:36 AM FINANCIAL ASSISTANCE SPECIALIST Arnulfo Jordan MD LAB POCT ORDERABLES - DEVIC E Final Result Performing Organization Address City/[facility]/ZIP Co de Phone Number [facility] [address] [facility] [place] [address] * POCT glucose (09/30/2024 5:29 AM FINANCIAL ASSISTANCE SPECIALIST) Glucose, POC 110 70 - 199 mg/dL Comment: For Glucose values <35 mg/dl when Hematocrit is >60 mg/dl,the test may not accurately detect significant hypoglycemia,and testing in the Laboratory should be considered if clinically indicated. Blood 09/30/2024 5:29 AM FINANCIAL ASSISTANCE SPECIALIST 09/30/2024 5:29 AM FINANCIAL ASSISTANCE SPECIALIST Arnulfo Jordan MD LAB POCT ORDERABLES - DEVIC E Final Result Performing Organization Address [facility] Co de Phone Number [facility] [address] [facility] [place] [address] * POCT glucose (09/30/2024 2:22 AM FINANCIAL ASSISTANCE SPECIALIST) Glucose, POC 183 70 - 199 mg/dL Comment: For Glucose values <35 mg/dl when Hematocrit is >60 mg/dl,the test may not accurately detect significant hypoglycemia,and testing in the Laboratory should be considered if clinically indicated. Blood 09/30/2024 2:22 AM FINANCIAL ASSISTANCE SPECIALIST 09/30/2024 2:22 AM FINANCIAL ASSISTANCE SPECIALIST Arnulfo Jordan MD LAB POCT ORDERABLES - DEVIC E Final Result Performing Organization Address [facility] de Phone Number [facility] [address] [place] [address] * POCT glucose (09/29/2024 8:35 PM FINANCIAL ASSISTANCE SPECIALIST) Glucose, POC 192 70 - 199 mg/dL Comment: For Glucose values <35 mg/dl when Hematocrit is >60 mg/dl,the test may not accurately detect significant hypoglycemia,and testing in the Laboratory should be considered if clinically indicated. Blood 09/29/2024 8:35 PM FINANCIAL ASSISTANCE SPECIALIST 09/29/2024 8:35 PM FINANCIAL ASSISTANCE SPECIALIST Arnulfo Jordan MD LAB POCT ORDERABLES - DEVIC E Final Result Performing Organization Address [facility] Co de Phone Number [facility] [address] [place] [address] * (ABNORMAL) POCT glucose (09/29/2024 5:35 PM FINANCIAL ASSISTANCE SPECIALIST) Pathologist [facility] Glucose, POC 203(H) 70 - 199 mg/dL Comment: For Glucose values <35 mg/dl when Hematocrit is >60 mg/dl,the test may not accurately detect significant hypoglycemia,and testing in the Laboratory should be considered if clinically indicated. Blood 09/29/2024 5:35 PM FINANCIAL ASSISTANCE SPECIALIST 09/29/2024 5:35 PM FINANCIAL ASSISTANCE SPECIALIST Arnulfo Jordan MD LAB POCT ORDERABLES - DEVIC E Final Result [facility] [address] Department [place] [address] * (ABNORMAL) eGFR (09/29/2024 3:33 PM FINANCIAL ASSISTANCE SPECIALIST) Pathologist [facility] eGFR 58(L) >=60 mL/min/1. 73 m2 Comment: [...] last reviewed 2021. Blood 09/29/2024 3:33 PM FINANCIAL ASSISTANCE SPECIALIST 09/29/2024 3:45 PM FINANCIAL ASSISTANCE SPECIALIST Arnulfo Jordan MD LAB BLOOD ORDERABLES Final Result [facility] [address] Department [place] [address] * (ABNORMAL) Differential, auto (09/29/2024 3:33 PM FINANCIAL ASSISTANCE SPECIALIST) Neutrophil abs 6.6(H) 1.5 - 6.5 K/cumm Imm gran abs 0.1 0.0 - 0.1 K/cumm [facility] Lymphocyte abs 0.9 0.8 - 3.3 K/cumm [facility] Monocyte abs 0.6 0.2 - 0.8 K/cumm [facility] Eosinophil abs 0.1 0.0 - 0.5 K/cumm [facility] Basophil abs 0.1 0.0 - 0.1 K/cumm [facility] Neutrophil pct 79.1 % [facility] Comment: Interpretive Data Percent cell count reference ranges are not reported, since discordance with absolute values may lead to misinterpretation of CBC data. Current Interpretive Data was last revised on 2017. Imm gran pct 0.6 % [facility] Comment: Interpretive Data Percent cell count reference ranges are not reported, since discordance with absolute values may lead to misinterpretation of CBC data. Current Interpretive Data was last revised on 2017. Lymphocyte pct 11.1 % [facility] Comment: Interpretive Data Percent cell count reference ranges are not reported, since discordance with absolute values may lead to misinterpretation of CBC data. Current Interpretive Data was last revised on 2017. Monocyte pct 7.6 % [facility] Comment: Interpretive Data Percent cell count reference ranges are not reported, since discordance with absolute values may lead to misinterpretation of CBC data. Current Interpretive Data was last revised on 2017. Eosinophil pct 0.6 % [facility] Comment: Interpretive Data Percent cell count reference ranges are not reported, since discordance with absolute values may lead to misinterpretation of CBC data. Current Interpretive Data was last revised on 2017. Basophil pct 1.0 % [facility] Comment: Interpretive Data Percent cell count reference ranges are not reported, since discordance with absolute values may lead to misinterpretation of CBC data. Current Interpretive Data was last revised on 2017. Blood 09/29/2024 3:33 PM FINANCIAL ASSISTANCE SPECIALIST 09/29/2024 3:45 PM FINANCIAL ASSISTANCE SPECIALIST Arnulfo Jordan MD LAB BLOOD ORDERABLES Final Result Performing Organization Address [facility] Co de Phone Number [facility] [address] [facility] [address] [address] [place], [place] [id number] * (ABNORMAL) CBC with auto differential (09/29/2024 3:33 PM FINANCIAL ASSISTANCE SPECIALIST) [facility] [facility] WBC 8.3 3.8 - 9.9 K/cumm Hgb 7.8(L) 11.9 - 15.5 g/dL [facility] Hct 24.8(L) 35.6 - 45.5 % [facility] Plt 291 150 - 400 K/cumm [facility] MPV 10.9 9.1 - 12.3 fL [facility] RBC 2.59(L) 3.90 - 5.20 M/cumm [facility] MCV 95.8 81.3 - 96.4 fL [facility] MCH 30.1 27.1 - 33.3 pg [facility] MCHC 31.5(L) 32.3 - 35.7 g/dL [facility] RDW CV 16.6(H) 11.1 - 14.9 % [facility] RDW SD 56.7(H) 35.7 - 48.1 fL [facility] NRBC abs 0.02(H) 0.00 - 0.01 K/cumm [facility] Blood 09/29/2024 3:33 PM FINANCIAL ASSISTANCE SPECIALIST 09/29/2024 3:45 PM FINANCIAL ASSISTANCE SPECIALIST Arnulfo Jordan MD LAB BLOOD ORDERABLES Final Result Performing Organization Address [facility]/ZIP Co de Phone Number [facility] [address] [facility] [address] [place], [place] [id number] * (ABNORMAL) Comprehensive metabolic panel (09/29/2024 3:33 PM FINANCIAL ASSISTANCE SPECIALIST) Pathologist [facility] Sodium 141 135 - 145 mmol/L Potassium, pl 2.9(L) 3.3 - 4.9 mmol/L [facility] Chloride 110 97 - 110 mmol/L [facility] CO2 20(L) 22 - 32 mmol/L [facility] Anion gap 11 2 - 15 mmol/L [facility] BUN 19 6 - 25 mg/dL [facility] Creatinine 1.15(H) 0.60 - 1.10 mg/dL [facility] Glucose 207(H) 70 - 199 mg/dL [facility] Comment: Interpretive Data Fasting glucose >/= 126 [...] 8.5 - 10.3 mg/dL [facility] Bilirubin, total 0.2 0.1 - 1.2 mg/dL [facility] Protein, pl 6.4(L) 6.5 - 8.5 g/dL [facility] Albumin 1.9(L) 3.5 - 5.0 g/dL [facility] Alk phos 170(H) 40 - 130 Units/L [facility] ALT 12 7 - 45 Units/L [facility] AST 27 10 - 45 Units/L [facility] Comment:Slightly Hemolyzed S pecimen Blood 09/29/2024 3:33 PM FINANCIAL ASSISTANCE SPECIALIST 09/29/2024 3:45 PM FINANCIAL ASSISTANCE SPECIALIST Arnulfo Jordan MD LAB BLOOD ORDERABLES Final Result [facility] [address] Department [place] [address] * POCT glucose (09/29/2024 1:43 PM FINANCIAL ASSISTANCE SPECIALIST) Glucose, POC 164 70 - 199 mg/dL Comment: For Glucose values <35 mg/dl when Hematocrit is >60 mg/dl,the test may not accurately detect significant hypoglycemia,and testing in the Laboratory should be considered if clinically indicated. Blood 09/29/2024 1:43 PM FINANCIAL ASSISTANCE SPECIALIST 09/29/2024 1:43 PM FINANCIAL ASSISTANCE SPECIALIST Arnulfo Jordan MD LAB POCT ORDERABLES - DEVIC E Final Result Performing Organization Address [facility] de Phone Number [facility] [address] [facility] [place] [address] * POCT glucose (09/29/2024 9:49 AM FINANCIAL ASSISTANCE SPECIALIST) Glucose, POC 133 70 - 199 mg/dL Comment: For Glucose values <35 mg/dl when Hematocrit is >60 mg/dl,the test may not accurately detect significant hypoglycemia,and testing in the Laboratory should be considered if clinically indicated. Blood 09/29/2024 9:49 AM FINANCIAL ASSISTANCE SPECIALIST 09/29/2024 9:49 AM FINANCIAL ASSISTANCE SPECIALIST Result [facility] Arnulfo Jordan MD LAB POCT ORDERABLES - DEVIC E Final Result Performing Organization Address [facility] de Phone Number [facility] [address] [facility] [place] [address] * POCT glucose (09/29/2024 7:27 AM FINANCIAL ASSISTANCE SPECIALIST) Glucose, POC 114 70 - 199 mg/dL Comment: For Glucose values <35 mg/dl when Hematocrit is >60 mg/dl,the test may not accurately detect significant hypoglycemia,and testing in the Laboratory should be considered if clinically indicated. Blood 09/29/2024 7:27 AM FINANCIAL ASSISTANCE SPECIALIST 09/29/2024 7:27 AM FINANCIAL ASSISTANCE SPECIALIST Arnulfo Jordan MD LAB POCT ORDERABLES - DEVIC E Final Result Performing Organization Address [facility] de Phone Number [facility] [address] [facility] [place] [address] * POCT glucose (09/29/2024 5:31 AM FINANCIAL ASSISTANCE SPECIALIST) Glucose, POC 115 70 - 199 mg/dL Comment: For Glucose values <35 mg/dl when Hematocrit is >60 mg/dl,the test may not accurately detect significant hypoglycemia,and testing in the Laboratory should be considered if clinically indicated. Blood 09/29/2024 5:31 AM FINANCIAL ASSISTANCE SPECIALIST 09/29/2024 5:31 AM FINANCIAL ASSISTANCE SPECIALIST Arnulfo Jordan MD LAB POCT ORDERABLES - DEVIC E Final Result Performing Organization Address [facility] de Phone Number [facility] [address] [facility] [place] [address] * POCT glucose (09/29/2024 1:25 AM FINANCIAL ASSISTANCE SPECIALIST) Glucose, POC 108 70 - 199 mg/dL Comment: For Glucose values <35 mg/dl when Hematocrit is >60 mg/dl,the test may not accurately detect significant hypoglycemia,and testing in the Laboratory should be considered if clinically indicated. Blood 09/29/2024 1:25 AM FINANCIAL ASSISTANCE SPECIALIST 09/29/2024 1:25 AM FINANCIAL ASSISTANCE SPECIALIST Arnulfo Jordan MD LAB POCT ORDERABLES - DEVIC E Final Result Performing Organization Address [facility] de Phone Number [facility] [address] [facility] [place] [address] * POCT glucose (09/28/2024 9:14 PM FINANCIAL ASSISTANCE SPECIALIST) Glucose, POC 106 70 - 199 mg/dL Comment: For Glucose values <35 mg/dl when Hematocrit is >60 mg/dl,the test may not accurately detect significant hypoglycemia,and testing in the Laboratory should be considered if clinically indicated. Blood 09/28/2024 9:14 PM FINANCIAL ASSISTANCE SPECIALIST 09/28/2024 9:14 PM FINANCIAL ASSISTANCE SPECIALIST Arnulfo Jordan MD LAB POCT ORDERABLES - DEVIC E Final Result Performing Organization Address [facility] de Phone Number [facility] [address] [facility] [place] [address] * POCT glucose (09/28/2024 5:12 PM FINANCIAL ASSISTANCE SPECIALIST) Glucose, POC 161 70 - 199 mg/dL Comment: For Glucose values <35 mg/dl when Hematocrit is >60 mg/dl,the test may not accurately detect significant hypoglycemia,and testing in the Laboratory should be considered if clinically indicated. Blood 09/28/2024 5:12 PM FINANCIAL ASSISTANCE SPECIALIST 09/28/2024 5:12 PM FINANCIAL ASSISTANCE SPECIALIST Arnulfo Jordan MD LAB POCT ORDERABLES - DEVIC E Final Result Performing Organization Address [facility] de Phone Number [facility] [address] [facility] [place] [address] * POCT glucose (09/28/2024 1:43 PM FINANCIAL ASSISTANCE SPECIALIST) Glucose, POC 173 70 - 199 mg/dL Comment: For Glucose values <35 mg/dl when Hematocrit is >60 mg/dl,the test may not accurately detect significant hypoglycemia,and testing in the Laboratory should be considered if clinically indicated. Blood 09/28/2024 1:43 PM FINANCIAL ASSISTANCE SPECIALIST 09/28/2024 1:43 PM FINANCIAL ASSISTANCE SPECIALIST Arnulfo Jordan MD LAB POCT ORDERABLES - DEVIC E Final Result Performing Organization Address [facility] Co de Phone Number [facility] [address] [facility] [place] [address] * POCT glucose (09/28/2024 9:16 AM FINANCIAL ASSISTANCE SPECIALIST) Glucose, POC 124 70 - 199 mg/dL Comment: For Glucose values <35 mg/dl when Hematocrit is >60 mg/dl,the test may not accurately detect significant hypoglycemia,and testing in the Laboratory should be considered if clinically indicated. Blood 09/28/2024 9:16 AM FINANCIAL ASSISTANCE SPECIALIST 09/28/2024 9:16 AM FINANCIAL ASSISTANCE SPECIALIST Arnulfo Jordan MD LAB POCT ORDERABLES - DEVIC E Final Result Performing Organization Address [facility] Co de Phone Number [facility] [address] [place] [address] * (ABNORMAL) eGFR (09/28/2024 7:09 AM FINANCIAL ASSISTANCE SPECIALIST) Pathologist [facility] eGFR 58(L) >=60 mL/min/1. 73 m2 Comment: [...] last reviewed 2021. Blood 09/28/2024 7:09 AM FINANCIAL ASSISTANCE SPECIALIST 09/28/2024 7:45 AM FINANCIAL ASSISTANCE SPECIALIST Arnulfo Jordan MD LAB BLOOD ORDERABLES Final Result Performing Organization Address [facility] Co de Phone Number [facility] [address] [place] [address] * (ABNORMAL) Differential, auto (09/28/2024 7:09 AM FINANCIAL ASSISTANCE SPECIALIST) Neutrophil abs 5.7 1.5 - 6.5 K/cumm Imm gran abs 0.0 0.0 - 0.1 K/cumm [facility] Lymphocyte abs 0.7(L) 0.8 - 3.3 K/cumm [facility] Monocyte abs 0.5 0.2 - 0.8 K/cumm [facility] Eosinophil abs 0.1 0.0 - 0.5 K/cumm [facility] Basophil abs 0.1 0.0 - 0.1 K/cumm [facility] Neutrophil pct 80.9 % [facility] Comment: Interpretive Data Percent cell count reference ranges are not reported, since discordance with absolute values may lead to misinterpretation of CBC data. Current Interpretive Data was last revised on 2017. Imm gran pct 0.4 % [facility] Comment: Interpretive Data Percent cell count reference ranges are not reported, since discordance with absolute values may lead to misinterpretation of CBC data. Current Interpretive Data was last revised on 2017. Lymphocyte pct 9.3 % [facility] Comment: Interpretive Data Percent cell count reference ranges are not reported, since discordance with absolute values may lead to misinterpretation of CBC data. Current Interpretive Data was last revised on 2017. Monocyte pct 6.9 % [facility] Comment: Interpretive Data Percent cell count reference ranges are not reported, since discordance with absolute values may lead to misinterpretation of CBC data. Current Interpretive Data was last revised on 2017. Eosinophil pct 1.5 % [facility] Comment: Interpretive Data Percent cell count reference ranges are not reported, since discordance with absolute values may lead to misinterpretation of CBC data. Current Interpretive Data was last revised on 2017. Basophil pct 1.0 % [facility] Comment: Interpretive Data Percent cell count reference ranges are not reported, since discordance with absolute values may lead to misinterpretation of CBC data. Current Interpretive Data was last revised on 2017. Blood 09/28/2024 7:09 AM FINANCIAL ASSISTANCE SPECIALIST 09/28/2024 7:45 AM FINANCIAL ASSISTANCE SPECIALIST Arnulfo Jordan MD LAB BLOOD ORDERABLES Final Result Performing Organization Address City/[facility]/ZIP Co de Phone Number [facility] [address] [place] [address] * (ABNORMAL) CBC with auto differential (09/28/2024 7:09 AM FINANCIAL ASSISTANCE SPECIALIST) Pathologist [facility] WBC 7.1 3.8 - 9.9 K/cumm Hgb 7.3(L) 11.9 - 15.5 g/dL [facility] Hct 24.5(L) 35.6 - 45.5 % [facility] Plt 285 150 - 400 K/cumm [facility] MPV 11.3 9.1 - 12.3 fL [facility] RBC 2.54(L) 3.90 - 5.20 M/cumm [facility] MCV 96.5(H) 81.3 - 96.4 fL [facility] MCH 28.7 27.1 - 33.3 pg [facility] MCHC 29.8(L) 32.3 - 35.7 g/dL [facility] RDW CV 16.5(H) 11.1 - 14.9 % [facility] RDW SD 57.2(H) 35.7 - 48.1 fL [facility] NRBC abs 0.00 0.00 - 0.01 K/cumm [facility] Blood 09/28/2024 7:09 AM FINANCIAL ASSISTANCE SPECIALIST 09/28/2024 7:45 AM FINANCIAL ASSISTANCE SPECIALIST Arnulfo Jordan MD LAB BLOOD ORDERABLES Final Result [facility] [address] Department [place] [address] * (ABNORMAL) Comprehensive metabolic panel (09/28/2024 7:09 AM FINANCIAL ASSISTANCE SPECIALIST) Pathologist [facility] Sodium 142 135 - 145 mmol/L Potassium, pl 3.3 3.3 - 4.9 mmol/L [facility] Chloride 109 97 - 110 mmol/L [facility] CO2 21(L) 22 - 32 mmol/L [facility] Anion gap 12 2 - 15 mmol/L [facility] BUN 24 6 - 25 mg/dL [facility] Creatinine 1.15(H) 0.60 - 1.10 mg/dL [facility] Glucose 111 70 - 199 mg/dL [facility] Comment: Interpretive Data Fasting glucose >/= 126 [...] 8.5 - 10.3 mg/dL [facility] Bilirubin, total 0.2 0.1 - 1.2 mg/dL [facility] Protein, pl 6.3(L) 6.5 - 8.5 g/dL [facility] Albumin 1.9(L) 3.5 - 5.0 g/dL [facility] Alk phos 163(H) 40 - 130 Units/L [facility] ALT 10 7 - 45 Units/L [facility] AST 28 10 - 45 Units/L [facility] Blood 09/28/2024 7:09 AM FINANCIAL ASSISTANCE SPECIALIST 09/28/2024 7:45 AM FINANCIAL ASSISTANCE SPECIALIST Arnulfo Jordan MD LAB BLOOD ORDERABLES Final Result [facility] [address] Department [place] [address] * POCT glucose (09/28/2024 5:42 AM FINANCIAL ASSISTANCE SPECIALIST) [facility] Glucose, POC 123 70 - 199 mg/dL Comment: For Glucose values <35 mg/dl when Hematocrit is >60 mg/dl,the test may not accurately detect significant hypoglycemia,and testing in the Laboratory should be considered if clinically indicated. Blood 09/28/2024 5:42 AM FINANCIAL ASSISTANCE SPECIALIST 09/28/2024 5:42 AM FINANCIAL ASSISTANCE SPECIALIST Arnulfo Jordan MD LAB POCT ORDERABLES - DEVIC E Final Result Performing Organization Address [facility] de Phone Number [facility] [address] [facility] [place] [address] * POCT glucose (09/28/2024 1:31 AM FINANCIAL ASSISTANCE SPECIALIST) Glucose, POC 125 70 - 199 mg/dL Comment: For Glucose values <35 mg/dl when Hematocrit is >60 mg/dl,the test may not accurately detect significant hypoglycemia,and testing in the Laboratory should be considered if clinically indicated. Blood 09/28/2024 1:31 AM FINANCIAL ASSISTANCE SPECIALIST 09/28/2024 1:31 AM FINANCIAL ASSISTANCE SPECIALIST Arnulfo Jordan MD LAB POCT ORDERABLES - DEVIC E Final Result Performing Organization Address [facility] de Phone Number [facility] [address] [place] [address] * POCT glucose (09/27/2024 9:14 PM FINANCIAL ASSISTANCE SPECIALIST) Glucose, POC 136 70 - 199 mg/dL Comment: For Glucose values <35 mg/dl when Hematocrit is >60 mg/dl,the test may not accurately detect significant hypoglycemia,and testing in the Laboratory should be considered if clinically indicated. Blood 09/27/2024 9:14 PM FINANCIAL ASSISTANCE SPECIALIST 09/27/2024 9:14 PM FINANCIAL ASSISTANCE SPECIALIST Arnulfo Jordan MD LAB POCT ORDERABLES - DEVIC E Final Result Performing Organization Address [facility] Co de Phone Number [facility] [address] [place] [address] * POCT glucose (09/27/2024 5:25 PM FINANCIAL ASSISTANCE SPECIALIST) Glucose, POC 112 70 - 199 mg/dL Comment: For Glucose values <35 mg/dl when Hematocrit is >60 mg/dl,the test may not accurately detect significant hypoglycemia,and testing in the Laboratory should be considered if clinically indicated. Blood 09/27/2024 5:25 PM FINANCIAL ASSISTANCE SPECIALIST 09/27/2024 5:25 PM FINANCIAL ASSISTANCE SPECIALIST Arnulfo Jordan MD LAB POCT ORDERABLES - DEVIC E Final Result Performing Organization Address [facility] de Phone Number [facility] [address] [place] [address] * POCT glucose (09/27/2024 3:13 PM FINANCIAL ASSISTANCE SPECIALIST) Glucose, POC 101 70 - 199 mg/dL Comment: For Glucose values <35 mg/dl when Hematocrit is >60 mg/dl,the test may not accurately detect significant hypoglycemia,and testing in the Laboratory should be considered if clinically indicated. Blood 09/27/2024 3:13 PM FINANCIAL ASSISTANCE SPECIALIST 09/27/2024 3:13 PM FINANCIAL ASSISTANCE SPECIALIST Arnulfo Jordan MD LAB POCT ORDERABLES - DEVIC E Final Result Performing Organization Address [facility] de Phone Number [facility] [address] Department [place] [address] * FL Modified Barium Swallow W Video (09/27/2024 2:20 PM FINANCIAL ASSISTANCE SPECIALIST) Anatomical Region Laterality Modality Head and Neck N/A Radio Fluoroscop y 09/27/2024 2:33 PM FINANCIAL ASSISTANCE SPECIALIST Impressions 09/27/2024 3:03 PM FINANCIAL ASSISTANCE SPECIALIST 1. There is flash laryngeal penetration with [...] Zion Rodriguez M.D. Narrative 09/27/2024 3:03 PM FINANCIAL ASSISTANCE SPECIALIST EXAMINATION: MODIFIED BARIUM SWALLOW 09/27/2024 HISTORY: Dysphagia. [...] it. Electronically signed by: Zion Rodriguez M.D. Result [facility] us Arnulfo Jordan MD IMG FLUOROSCOPY PROCEDURES Final Result * POCT glucose (09/27/2024 10:05 AM FINANCIAL ASSISTANCE SPECIALIST) Glucose, POC 89 70 - 199 mg/dL Comment: For Glucose values <35 mg/dl when Hematocrit is >60 mg/dl,the test may not accurately detect significant hypoglycemia,and testing in the Laboratory should be considered if clinically indicated. Blood 09/27/2024 10:0 5 AM FINANCIAL ASSISTANCE SPECIALIST 09/27/2024 10:05 AM FINANCIAL ASSISTANCE SPECIALIST Result Jordan Jordan MD LAB POCT ORDERABLES - DEVIC E Final Result Performing Organization Address City/[facility]/ZIP Co de Phone Number [facility] [address] Department of [employer] [place], [place] [id number] * Iron profile - Add on lab test (09/27/2024 8:43 AM FINANCIAL ASSISTANCE SPECIALIST) Acceptable Yes Blood 09/27/2024 8:43 AM FINANCIAL ASSISTANCE SPECIALIST 09/27/2024 8:43 AM FINANCIAL ASSISTANCE SPECIALIST Narrative [facility] - 09/27/2024 8:44 AM FINANCIAL ASSISTANCE SPECIALIST Name of Test->Iron profile Result [facility] us Arnulfo Jordan MD LAB BLOOD ORDERABLES Final Result Performing Organization Address City/[facility]/ZIP Co de Phone Number [facility] [address] Department [place] [address] * POCT glucose (09/27/2024 5:57 AM FINANCIAL ASSISTANCE SPECIALIST) Glucose, POC 74 70 - 199 mg/dL Comment: For Glucose values <35 mg/dl when Hematocrit is >60 mg/dl,the test may not accurately detect significant hypoglycemia,and testing in the Laboratory should be considered if clinically indicated. Blood 09/27/2024 5:57 AM FINANCIAL ASSISTANCE SPECIALIST 09/27/2024 5:57 AM FINANCIAL ASSISTANCE SPECIALIST Result [facility] us Arnulfo Jordan MD LAB POCT ORDERABLES - DEVIC E Final Result Performing Organization Address City/[facility] Co de Phone Number [facility] [address] Department [place] [address] * (ABNORMAL) eGFR (09/27/2024 5:42 AM FINANCIAL ASSISTANCE SPECIALIST) eGFR 58(L) >=60 mL/min/1. 73 m2 Comment: [...] last reviewed 2021. Blood 09/27/2024 5:42 AM FINANCIAL ASSISTANCE SPECIALIST 09/27/2024 5:55 AM FINANCIAL ASSISTANCE SPECIALIST Arnulfo Jordan MD LAB BLOOD ORDERABLES Final Result Performing Organization Address City/[facility]/ZIP Co de Phone Number [facility] [address] Department of Laboratories [place], [place] [id number] * (ABNORMAL) Differential, auto (09/27/2024 5:42 AM FINANCIAL ASSISTANCE SPECIALIST) Pathologist [facility] Neutrophil abs 7.1(H) 1.5 - 6.5 K/cumm Imm gran abs 0.0 0.0 - 0.1 K/cumm [facility] Lymphocyte abs 0.7(L) 0.8 - 3.3 K/cumm [facility] Monocyte abs 0.6 0.2 - 0.8 K/cumm [facility] Eosinophil abs 0.2 0.0 - 0.5 K/cumm [facility] Basophil abs 0.1 0.0 - 0.1 K/cumm [facility] Neutrophil pct 80.9 % [facility] Comment: Interpretive Data Percent cell count reference ranges are not reported, since discordance with absolute values may lead to misinterpretation of CBC data. Current Interpretive Data was last revised on 2017. Imm gran pct 0.5 % [facility] Comment: Interpretive Data Percent cell count reference ranges are not reported, since discordance with absolute values may lead to misinterpretation of CBC data. Current Interpretive Data was last revised on 2017. Lymphocyte pct 8.4 % [facility] Comment: Interpretive Data Percent cell count reference ranges are not reported, since discordance with absolute values may lead to misinterpretation of CBC data. Current Interpretive Data was last revised on 2017. Monocyte pct 6.6 % [facility] Comment: Interpretive Data Percent cell count reference ranges are not reported, since discordance with absolute values may lead to misinterpretation of CBC data. Current Interpretive Data was last revised on 2017. Eosinophil pct 2.6 % [facility] Comment: Interpretive Data Percent cell count reference ranges are not reported, since discordance with absolute values may lead to misinterpretation of CBC data. Current Interpretive Data was last revised on 2017. Basophil pct 1.0 % [facility] Comment: Interpretive Data Percent cell count reference ranges are not reported, since discordance with absolute values may lead to misinterpretation of CBC data. Current Interpretive Data was last revised on 2017. Blood 09/27/2024 5:42 AM FINANCIAL ASSISTANCE SPECIALIST 09/27/2024 5:55 AM FINANCIAL ASSISTANCE SPECIALIST us Arnulfo Jordan MD LAB BLOOD ORDERABLES Final Result [facility] [address] Department [place] [address] * (ABNORMAL) Iron profile w/ IBC (09/27/2024 5:42 AM FINANCIAL ASSISTANCE SPECIALIST) [facility] Iron 25(L) 35 - 145 mcg/dL TIBC 156(L) 250 - 400 mcg/dL [facility] Transferrin saturation 16(L) 20 - 50 % [facility] Blood 09/27/2024 5:42 AM FINANCIAL ASSISTANCE SPECIALIST 09/27/2024 5:55 AM FINANCIAL ASSISTANCE SPECIALIST Arnulfo Jordan MD LAB BLOOD ORDERABLES Final Result Performing Organization Address City/[facility]/ZIP Co de Phone Number [facility] [facility] [address] [place] [address] * (ABNORMAL) CBC with auto differential (09/27/2024 5:42 AM FINANCIAL ASSISTANCE SPECIALIST) [facility] WBC 8.8 3.8 - 9.9 K/cumm Hgb 7.2(L) 11.9 - 15.5 g/dL [facility] Hct 24.6(L) 35.6 - 45.5 % [facility] Plt 280 150 - 400 K/cumm [facility] MPV 11.4 9.1 - 12.3 fL [facility] RBC 2.60(L) 3.90 - 5.20 M/cumm [facility] MCV 94.6 81.3 - 96.4 fL [facility] MCH 27.7 27.1 - 33.3 pg [facility] MCHC 29.3(L) 32.3 - 35.7 g/dL [facility] RDW CV 16.1(H) 11.1 - 14.9 % [facility] RDW SD 54.5(H) 35.7 - 48.1 fL [facility] NRBC abs 0.00 0.00 - 0.01 K/cumm [facility] Blood 09/27/2024 5:42 AM FINANCIAL ASSISTANCE SPECIALIST 09/27/2024 5:55 AM FINANCIAL ASSISTANCE SPECIALIST Arnulfo Jordan MD LAB BLOOD ORDERABLES Final Result [facility] [address] Department [place] [address] * (ABNORMAL) Comprehensive metabolic panel (09/27/2024 5:42 AM FINANCIAL ASSISTANCE SPECIALIST) Sodium 143 135 - 145 mmol/L Potassium, pl 3.4 3.3 - 4.9 mmol/L [facility] Chloride 110 97 - 110 mmol/L [facility] CO2 22 22 - 32 mmol/L [facility] Anion gap 11 2 - 15 mmol/L [facility] BUN 25 6 - 25 mg/dL [facility] Creatinine 1.16(H) 0.60 - 1.10 mg/dL [facility] Glucose 77 70 - 199 mg/dL [facility] Comment: Interpretive Data Fasting glucose >/= 126 [...] 8.5 - 10.3 mg/dL [facility] Bilirubin, total 0.3 0.1 - 1.2 mg/dL [facility] Protein, pl 6.0(L) 6.5 - 8.5 g/dL [facility] Albumin 2.1(L) 3.5 - 5.0 g/dL [facility] Alk phos 152(H) 40 - 130 Units/L [facility] ALT 12 7 - 45 Units/L [facility] AST 31 10 - 45 Units/L [facility] Blood 09/27/2024 5:42 AM FINANCIAL ASSISTANCE SPECIALIST 09/27/2024 5:55 AM FINANCIAL ASSISTANCE SPECIALIST Arnulfo Jordan MD LAB BLOOD ORDERABLES Final Result [facility] [address] [place] [address] * POCT glucose (09/27/2024 2:14 AM FINANCIAL ASSISTANCE SPECIALIST) Glucose, POC 78 70 - 199 mg/dL Comment: For Glucose values <35 mg/dl when Hematocrit is >60 mg/dl,the test may not accurately detect significant hypoglycemia,and testing in the Laboratory should be considered if clinically indicated. Blood 09/27/2024 2:14 AM FINANCIAL ASSISTANCE SPECIALIST 09/27/2024 2:14 AM FINANCIAL ASSISTANCE SPECIALIST Arnulfo Jordan MD LAB POCT ORDERABLES - DEVIC E Final Result Performing Organization Address City/[facility]/ZIP Co de Phone Number [facility] [address] [place] [address] * POCT glucose (09/26/2024 9:41 PM FINANCIAL ASSISTANCE SPECIALIST) Glucose, POC 79 70 - 199 mg/dL Comment: For Glucose values <35 mg/dl when Hematocrit is >60 mg/dl,the test may not accurately detect significant hypoglycemia,and testing in the Laboratory should be considered if clinically indicated. Blood 09/26/2024 9:41 PM FINANCIAL ASSISTANCE SPECIALIST 09/26/2024 9:41 PM FINANCIAL ASSISTANCE SPECIALIST Arnulfo Jordan MD LAB POCT ORDERABLES - DEVIC E Final Result Performing Organization Address City/[facility]/ZIP Co de Phone Number [facility] [address] [place] [address] * POCT glucose (09/26/2024 6:18 PM FINANCIAL ASSISTANCE SPECIALIST) Glucose, POC 91 70 - 199 mg/dL Comment: For Glucose values <35 mg/dl when Hematocrit is >60 mg/dl,the test may not accurately detect significant hypoglycemia,and testing in the Laboratory should be considered if clinically indicated. Blood 09/26/2024 6:18 PM FINANCIAL ASSISTANCE SPECIALIST 09/26/2024 6:18 PM FINANCIAL ASSISTANCE SPECIALIST Arnulfo Jordan MD LAB POCT ORDERABLES - DEVIC E Final Result Performing Organization Address [facility] Co de Phone Number [facility] [address] [facility] [place], [place] [phone] * POCT glucose (09/26/2024 2:51 PM FINANCIAL ASSISTANCE SPECIALIST) [facility] Glucose, POC 89 70 - 199 mg/dL Comment: For Glucose values <35 mg/dl when Hematocrit is >60 mg/dl,the test may not accurately detect significant hypoglycemia,and testing in the Laboratory should be considered if clinically indicated. Blood 09/26/2024 2:51 PM FINANCIAL ASSISTANCE SPECIALIST 09/26/2024 2:51 PM FINANCIAL ASSISTANCE SPECIALIST Arnulfo Jordan MD LAB POCT ORDERABLES - DEVIC E Final Result Performing Organization Address [facility] Co de Phone Number [facility] [address] [place] [address] * (ABNORMAL) CBC with auto differential (09/26/2024 2:03 PM FINANCIAL ASSISTANCE SPECIALIST) [facility] WBC 8.6 3.8 - 9.9 K/cumm Hgb 7.3(L) 11.9 - 15.5 g/dL [facility] Hct 24.2(L) 35.6 - 45.5 % [facility] Plt 308 150 - 400 K/cumm [facility] MPV 11.5 9.1 - 12.3 fL [facility] RBC 2.52(L) 3.90 - 5.20 M/cumm [facility] MCV 96.0 81.3 - 96.4 fL [facility] MCH 29.0 27.1 - 33.3 pg [facility] MCHC 30.2(L) 32.3 - 35.7 g/dL [facility] RDW CV 16.0(H) 11.1 - 14.9 % [facility] RDW SD 55.1(H) 35.7 - 48.1 fL [facility] NRBC abs 0.00 0.00 - 0.01 K/cumm [facility] Blood 09/26/2024 2:03 PM FINANCIAL ASSISTANCE SPECIALIST 09/26/2024 2:11 PM FINANCIAL ASSISTANCE SPECIALIST Arnulfo Jordan MD LAB BLOOD ORDERABLES Final Result Performing Organization Address City/[facility]/ZIP Co de Phone Number [facility] [address] Department [employer] [place], [place] [phone] * (ABNORMAL) eGFR (09/26/2024 1:25 PM FINANCIAL ASSISTANCE SPECIALIST) eGFR 57(L) >=60 mL/min/1. 73 m2 Comment: [...] last reviewed 2021. Blood 09/26/2024 1:25 PM FINANCIAL ASSISTANCE SPECIALIST 09/26/2024 1:33 PM FINANCIAL ASSISTANCE SPECIALIST Arnulfo Jordan MD LAB BLOOD ORDERABLES Final Result Performing Organization Address City/[facility]/ZIP Co de Phone Number [facility] [address] Department of [employer] [place], [place] [id number] * Differential, auto (09/26/2024 1:25 PM FINANCIAL ASSISTANCE SPECIALIST) Pathologist [facility] Neutrophil abs See Comment 1.5 - 6.5 Comment:CBC to be recollecte d due to possible falsely low Hgb on09/26/2024 13:53:40 FINANCIAL ASSISTANCE SPECIALIST [id number] Imm gran abs See Comment 0.0 - 0.1 [facility] Comment:CBC to be recollecte d due to possible falsely low Hgb on09/26/2024 13:53:40 FINANCIAL ASSISTANCE SPECIALIST [id number] Lymphocyte abs See Comment 0.8 - 3.3 [facility] Comment:CBC to be recollecte d due to possible falsely low Hgb on09/26/2024 13:53:40 FINANCIAL ASSISTANCE SPECIALIST [id number] Monocyte abs See Comment 0.2 - 0.8 [facility] Comment:CBC to be recollecte d due to possible falsely low Hgb on09/26/2024 13:53:40 FINANCIAL ASSISTANCE SPECIALIST [id number] Eosinophil abs See Comment 0.0 - 0.5 [facility] Comment:CBC to be recollecte d due to possible falsely low Hgb on09/26/2024 13:53:40 FINANCIAL ASSISTANCE SPECIALIST [id number] Basophil abs See Comment 0.0 - 0.1 [facility] Comment:CBC to be recollecte d due to possible falsely low Hgb on09/26/2024 13:53:40 FINANCIAL ASSISTANCE SPECIALIST [id number] Neutrophil pct See Comment [facility] Comment: CBC to be recollected due to possible falsely low Hgb on09/26/2024 13:53:40 FINANCIAL ASSISTANCE SPECIALIST [id number] Interpretive Data Percent cell count reference ranges are not reported, since discordance with absolute values may lead to misinterpretation of CBC data. Current Interpretive Data was last revised on 2017. Imm gran pct See Comment [facility] Comment: CBC to be recollected due to possible falsely low Hgb on09/26/2024 13:53:40 FINANCIAL ASSISTANCE SPECIALIST [id number] Interpretive Data Percent cell count reference ranges are not reported, since discordance with absolute values may lead to misinterpretation of CBC data. Current Interpretive Data was last revised on 2017. Lymphocyte pct See Comment [facility] Comment: CBC to be recollected due to possible falsely low Hgb on09/26/2024 13:53:40 FINANCIAL ASSISTANCE SPECIALIST [id number] Interpretive Data Percent cell count reference ranges are not reported, since discordance with absolute values may lead to misinterpretation of CBC data. Current Interpretive Data was last revised on 2017. Monocyte pct See Comment [facility] Comment: CBC to be recollected due to possible falsely low Hgb on09/26/2024 13:53:40 FINANCIAL ASSISTANCE SPECIALIST [id number] Interpretive Data Percent cell count reference ranges are not reported, since discordance with absolute values may lead to misinterpretation of CBC data. Current Interpretive Data was last revised on 2017. Eosinophil pct See Comment [facility] Comment: CBC to be recollected due to possible falsely low Hgb on09/26/2024 13:53:40 FINANCIAL ASSISTANCE SPECIALIST [id number] Interpretive Data Percent cell count reference ranges are not reported, since discordance with absolute values may lead to misinterpretation of CBC data. Current Interpretive Data was last revised on 2017. Basophil pct See Comment [facility] Comment: CBC to be recollected due to possible falsely low Hgb on09/26/2024 13:53:40 FINANCIAL ASSISTANCE SPECIALIST [id number] Interpretive Data Percent cell count reference ranges are not reported, since discordance with absolute values may lead to misinterpretation of CBC data. Current Interpretive Data was last revised on 2017. Blood 09/26/2024 1:25 PM FINANCIAL ASSISTANCE SPECIALIST 09/26/2024 1:33 PM FINANCIAL ASSISTANCE SPECIALIST Arnulfo Jordan MD LAB BLOOD ORDERABLES Edited Result - Final [facility] [address] Department [place] [address] * CBC with auto differential (09/26/2024 1:25 PM FINANCIAL ASSISTANCE SPECIALIST) WBC See Comment 3.8 - 9.9 Comment: Test results inaccurately filed to this patient's record. Test will be credited. CBC to be recollected due to possible falsely low Hgb on09/26/2024 13:53:40 FINANCIAL ASSISTANCE SPECIALIST [id number] Hgb See Comment 11.9 - 15.5 [facility] Comment: Test results inaccurately filed to this patient's record. Test will be credited. CBC to be recollected due to possible falsely low Hgb on09/26/2024 13:53:40 FINANCIAL ASSISTANCE SPECIALIST [id number] Hct See Comment 35.6 - 45.5 [facility] Comment: Test results inaccurately filed to this patient's record. Test will be credited. CBC to be recollected due to possible falsely low Hgb on09/26/2024 13:53:40 FINANCIAL ASSISTANCE SPECIALIST [id number] Plt See Comment 150 - 400 K/cumm [facility] Comment: Test results inaccurately filed to this patient's record. Test will be credited. CBC to be recollected due to possible falsely low Hgb on09/26/2024 13:53:40 FINANCIAL ASSISTANCE SPECIALIST [id number] MPV See Comment 9.1 - 12.3 [facility] Comment: Test results inaccurately filed to this patient's record. Test will be credited. CBC to be recollected due to possible falsely low Hgb on09/26/2024 13:53:40 FINANCIAL ASSISTANCE SPECIALIST [id number] RBC See Comment 3.90 - 5.20 [facility] Comment: Test results inaccurately filed to this patient's record. Test will be credited. CBC to be recollected due to possible falsely low Hgb on09/26/2024 13:53:40 FINANCIAL ASSISTANCE SPECIALIST [id number] MCV See Comment 81.3 - 96.4 [facility] Comment: Test results inaccurately filed to this patient's record. Test will be credited. CBC to be recollected due to possible falsely low Hgb on09/26/2024 13:53:40 FINANCIAL ASSISTANCE SPECIALIST [id number] MCH See Comment 27.1 - 33.3 [facility] Comment: Test results inaccurately filed to this patient's record. Test will be credited. CBC to be recollected due to possible falsely low Hgb on09/26/2024 13:53:40 FINANCIAL ASSISTANCE SPECIALIST [id number] MCHC See Comment 32.3 - 35.7 [facility] Comment: Test results inaccurately filed to this patient's record. Test will be credited. CBC to be recollected due to possible falsely low Hgb on09/26/2024 13:53:40 FINANCIAL ASSISTANCE SPECIALIST [id number] RDW CV See Comment 11.1 - 14.9 [facility] Comment: Test results inaccurately filed to this patient's record. Test will be credited. CBC to be recollected due to possible falsely low Hgb on09/26/2024 13:53:40 FINANCIAL ASSISTANCE SPECIALIST [id number] RDW SD See Comment 35.7 - 48.1 [facility] Comment: Test results inaccurately filed to this patient's record. Test will be credited. CBC to be recollected due to possible falsely low Hgb on09/26/2024 13:53:40 FINANCIAL ASSISTANCE SPECIALIST [id number] NRBC abs See Comment 0.00 - 0.01 K/cumm [facility] Comment:CBC to be recollecte d due to possible falsely low Hgb on09/26/2024 13:53:40 FINANCIAL ASSISTANCE SPECIALIST [id number] Blood 09/26/2024 1:25 PM FINANCIAL ASSISTANCE SPECIALIST 09/26/2024 1:33 PM FINANCIAL ASSISTANCE SPECIALIST us Arnulfo Jordan MD LAB BLOOD ORDERABLES Edited Result - Final [facility] [address] Department [place] [address] * (ABNORMAL) Comprehensive metabolic panel (09/26/2024 1:25 PM FINANCIAL ASSISTANCE SPECIALIST) Sodium 142 135 - 145 mmol/L Potassium, pl 3.2(L) 3.3 - 4.9 mmol/L [facility] Chloride 112(H) 97 - 110 mmol/L [facility] CO2 21(L) 22 - 32 mmol/L [facility] Anion gap 9 2 - 15 mmol/L [facility] BUN 23 6 - 25 mg/dL [facility] Creatinine 1.18(H) 0.60 - 1.10 mg/dL [facility] Glucose 79 70 - 199 mg/dL [facility] Comment: Interpretive Data Fasting glucose >/= 126 [...] 8.5 - 10.3 mg/dL [facility] Bilirubin, total 0.2 0.1 - 1.2 mg/dL [facility] Protein, pl 5.6(L) 6.5 - 8.5 g/dL [facility] Albumin 1.8(L) 3.5 - 5.0 g/dL [facility] Alk phos 135(H) 40 - 130 Units/L [facility] ALT 13 7 - 45 Units/L [facility] AST 32 10 - 45 Units/L [facility] Blood 09/26/2024 1:25 PM FINANCIAL ASSISTANCE SPECIALIST 09/26/2024 1:33 PM FINANCIAL ASSISTANCE SPECIALIST Arnulfo Jordan MD LAB BLOOD ORDERABLES Final Result Performing Organization Address City/[facility]/ZIP Co de Phone Number [facility] [address] [place] [address] * POCT glucose (09/26/2024 10:10 AM FINANCIAL ASSISTANCE SPECIALIST) [facility] Glucose, POC 100 70 - 199 mg/dL Comment: For Glucose values <35 mg/dl when Hematocrit is >60 mg/dl,the test may not accurately detect significant hypoglycemia,and testing in the Laboratory should be considered if clinically indicated. Blood 09/26/2024 10:1 0 AM FINANCIAL ASSISTANCE SPECIALIST 09/26/2024 10:10 AM FINANCIAL ASSISTANCE SPECIALIST Arnulfo Jordan MD LAB POCT ORDERABLES - DEVIC E Final Result Performing Organization Address City/[facility]/ZIP Co de Phone Number [facility] [address] [place] [address] * POCT glucose (09/26/2024 5:04 AM FINANCIAL ASSISTANCE SPECIALIST) Glucose, POC 94 70 - 199 mg/dL Comment: For Glucose values <35 mg/dl when Hematocrit is >60 mg/dl,the test may not accurately detect significant hypoglycemia,and testing in the Laboratory should be considered if clinically indicated. Blood 09/26/2024 5:04 AM FINANCIAL ASSISTANCE SPECIALIST 09/26/2024 5:04 AM FINANCIAL ASSISTANCE SPECIALIST Arnulfo Jordan MD LAB POCT ORDERABLES - DEVIC E Final Result Performing Organization Address [facility] Co de Phone Number [facility] [address] [facility] [address] [place], [place] [phone] * C. difficile testing Stool (09/26/2024 2:18 AM FINANCIAL ASSISTANCE SPECIALIST) Pathologist [facility] GDH Result Negative Negative Toxin Result Negative Negative [facility] C. diff result Negative, free toxin Negative, free toxin [facility] C. diff interp Negative for toxigenic Clostridioides (Clostridium) difficile. Analysis was performed using a glutamate dehydrogenase antigen detection assay combined with a C. difficile toxin detection assay. [facility] Stool 09/26/2024 2:18 AM FINANCIAL ASSISTANCE SPECIALIST 09/26/2024 2:41 AM FINANCIAL ASSISTANCE SPECIALIST Arnulfo Jordan MD LAB MICROBIOLOGY - GENERAL ORDERABLES Final Result Performing Organization Address City/[facility] Co de Phone Number [facility] [address] [facility] [place] [address] * POCT glucose (09/26/2024 12:01 AM FINANCIAL ASSISTANCE SPECIALIST) Glucose, POC 108 70 - 199 mg/dL Comment: For Glucose values <35 mg/dl when Hematocrit is >60 mg/dl,the test may not accurately detect significant hypoglycemia,and testing in the Laboratory should be considered if clinically indicated. Blood 09/26/2024 12:0 1 AM FINANCIAL ASSISTANCE SPECIALIST 09/26/2024 12:01 AM FINANCIAL ASSISTANCE SPECIALIST Arnulfo Jordan MD LAB POCT ORDERABLES - DEVIC E Final Result Performing Organization Address [facility] Co de Phone Number [facility] [address] [facility] [place] [address] * POCT glucose (09/25/2024 8:35 PM FINANCIAL ASSISTANCE SPECIALIST) Glucose, POC 92 70 - 199 mg/dL Comment: For Glucose values <35 mg/dl when Hematocrit is >60 mg/dl,the test may not accurately detect significant hypoglycemia,and testing in the Laboratory should be considered if clinically indicated. Blood 09/25/2024 8:35 PM FINANCIAL ASSISTANCE SPECIALIST 09/25/2024 8:35 PM FINANCIAL ASSISTANCE SPECIALIST Arnulfo Jordan MD LAB POCT ORDERABLES - DEVIC E Final Result Performing Organization Address [facility] de Phone Number [facility] [address] [facility] [place] [address] * POCT glucose (09/25/2024 4:36 PM FINANCIAL ASSISTANCE SPECIALIST) Glucose, POC 97 70 - 199 mg/dL Comment: For Glucose values <35 mg/dl when Hematocrit is >60 mg/dl,the test may not accurately detect significant hypoglycemia,and testing in the Laboratory should be considered if clinically indicated. Blood 09/25/2024 4:36 PM FINANCIAL ASSISTANCE SPECIALIST 09/25/2024 4:36 PM FINANCIAL ASSISTANCE SPECIALIST Arnulfo Jordan MD LAB POCT ORDERABLES - DEVIC E Final Result Performing Organization Address [facility] Co de Phone Number [facility] [address] [facility] [place] [address] * POCT glucose (09/25/2024 11:55 AM FINANCIAL ASSISTANCE SPECIALIST) Glucose, POC 87 70 - 199 mg/dL Comment: For Glucose values <35 mg/dl when Hematocrit is >60 mg/dl,the test may not accurately detect significant hypoglycemia,and testing in the Laboratory should be considered if clinically indicated. Blood 09/25/2024 11:5 5 AM FINANCIAL ASSISTANCE SPECIALIST 09/25/2024 11:55 AM FINANCIAL ASSISTANCE SPECIALIST Arnulfo Jordan MD LAB POCT ORDERABLES - DEVIC E Final Result Performing Organization Address City/[facility]/ZIP Co de Phone Number [facility] [address] [place] [address] * (ABNORMAL) eGFR (09/25/2024 8:32 AM FINANCIAL ASSISTANCE SPECIALIST) eGFR 53(L) >=60 mL/min/1. 73 m2 Comment: [...] last reviewed 2021. Blood 09/25/2024 8:32 AM FINANCIAL ASSISTANCE SPECIALIST 09/25/2024 8:46 AM FINANCIAL ASSISTANCE SPECIALIST Arnulfo Jordan MD LAB BLOOD ORDERABLES Final Result Performing Organization Address City/[facility]/ZIP Co de Phone Number [facility] [address] Department of [employer] [place], [place] [phone] * (ABNORMAL) Differential, auto (09/25/2024 8:32 AM FINANCIAL ASSISTANCE SPECIALIST) Neutrophil abs 7.2(H) 1.5 - 6.5 K/cumm Imm gran abs 0.1 0.0 - 0.1 K/cumm [facility] Lymphocyte abs 1.1 0.8 - 3.3 K/cumm [facility] Monocyte abs 0.7 0.2 - 0.8 K/cumm [facility] Eosinophil abs 0.2 0.0 - 0.5 K/cumm [facility] Basophil abs 0.1 0.0 - 0.1 K/cumm [facility] Neutrophil pct 78.5 % [facility] Comment: Interpretive Data Percent cell count reference ranges are not reported, since discordance with absolute values may lead to misinterpretation of CBC data. Current Interpretive Data was last revised on 2017. Imm gran pct 0.5 % [facility] Comment: Interpretive Data Percent cell count reference ranges are not reported, since discordance with absolute values may lead to misinterpretation of CBC data. Current Interpretive Data was last revised on 2017. Lymphocyte pct 11.6 % [facility] Comment: Interpretive Data Percent cell count reference ranges are not reported, since discordance with absolute values may lead to misinterpretation of CBC data. Current Interpretive Data was last revised on 2017. Monocyte pct 7.3 % [facility] Comment: Interpretive Data Percent cell count reference ranges are not reported, since discordance with absolute values may lead to misinterpretation of CBC data. Current Interpretive Data was last revised on 2017. Eosinophil pct 1.6 % [facility] Comment: Interpretive Data Percent cell count reference ranges are not reported, since discordance with absolute values may lead to misinterpretation of CBC data. Current Interpretive Data was last revised on 2017. Basophil pct 0.5 % [facility] Comment: Interpretive Data Percent cell count reference ranges are not reported, since discordance with absolute values may lead to misinterpretation of CBC data. Current Interpretive Data was last revised on 2017. Blood 09/25/2024 8:32 AM FINANCIAL ASSISTANCE SPECIALIST 09/25/2024 8:46 AM FINANCIAL ASSISTANCE SPECIALIST Arnulfo Jordan MD LAB BLOOD ORDERABLES Final Result Performing Organization Address [facility] Co de Phone Number [facility] [address] Department [place] [address] * POCT glucose (09/25/2024 8:32 AM FINANCIAL ASSISTANCE SPECIALIST) [facility] [facility] Glucose, POC 89 70 - 199 mg/dL Comment: For Glucose values <35 mg/dl when Hematocrit is >60 mg/dl,the test may not accurately detect significant hypoglycemia,and testing in the Laboratory should be considered if clinically indicated. Blood 09/25/2024 8:32 AM FINANCIAL ASSISTANCE SPECIALIST 09/25/2024 8:32 AM FINANCIAL ASSISTANCE SPECIALIST Arnulfo Jordan MD LAB POCT ORDERABLES - DEVIC E Final Result Performing Organization Address [facility] Co de Phone Number [facility] [address] Department [place] [address] * (ABNORMAL) CBC with auto differential (09/25/2024 8:32 AM FINANCIAL ASSISTANCE SPECIALIST) [facility] WBC 9.2 3.8 - 9.9 K/cumm Hgb 7.2(L) 11.9 - 15.5 g/dL [facility] Hct 24.6(L) 35.6 - 45.5 % [facility] Plt 259 150 - 400 K/cumm [facility] MPV 11.7 9.1 - 12.3 fL [facility] RBC 2.49(L) 3.90 - 5.20 M/cumm [facility] MCV 98.8(H) 81.3 - 96.4 fL [facility] MCH 28.9 27.1 - 33.3 pg [facility] MCHC 29.3(L) 32.3 - 35.7 g/dL [facility] RDW CV 15.8(H) 11.1 - 14.9 % [facility] RDW SD 55.9(H) 35.7 - 48.1 fL [facility] NRBC abs 0.00 0.00 - 0.01 K/cumm [facility] Blood 09/25/2024 8:32 AM FINANCIAL ASSISTANCE SPECIALIST 09/25/2024 8:46 AM FINANCIAL ASSISTANCE SPECIALIST Arnulfo Jordan MD LAB BLOOD ORDERABLES Final Result [facility] [address] Department [place] [address] * (ABNORMAL) Comprehensive metabolic panel (09/25/2024 8:32 AM FINANCIAL ASSISTANCE SPECIALIST) Sodium 143 135 - 145 mmol/L Potassium, pl 3.2(L) 3.3 - 4.9 mmol/L [facility] Chloride 111(H) 97 - 110 mmol/L [facility] CO2 20(L) 22 - 32 mmol/L [facility] Anion gap 12 2 - 15 mmol/L [facility] BUN 26(H) 6 - 25 mg/dL [facility] Creatinine 1.24(H) 0.60 - 1.10 mg/dL [facility] Glucose 85 70 - 199 mg/dL [facility] Comment: Interpretive Data Fasting glucose >/= 126 [...] 8.5 - 10.3 mg/dL [facility] Bilirubin, total 0.2 0.1 - 1.2 mg/dL [facility] Protein, pl 5.8(L) 6.5 - 8.5 g/dL [facility] Albumin 1.9(L) 3.5 - 5.0 g/dL [facility] Alk phos 137(H) 40 - 130 Units/L [facility] ALT 13 7 - 45 Units/L [facility] AST 28 10 - 45 Units/L [facility] Blood 09/25/2024 8:32 AM FINANCIAL ASSISTANCE SPECIALIST 09/25/2024 8:46 AM FINANCIAL ASSISTANCE SPECIALIST Arnulfo Jordan MD LAB BLOOD ORDERABLES Final Result Performing Organization Address [facility] Co de Phone Number [facility] [address] [facility] [place] [address] * POCT glucose (09/25/2024 4:49 AM FINANCIAL ASSISTANCE SPECIALIST) Glucose, POC 86 70 - 199 mg/dL Comment: For Glucose values <35 mg/dl when Hematocrit is >60 mg/dl,the test may not accurately detect significant hypoglycemia,and testing in the Laboratory should be considered if clinically indicated. Blood 09/25/2024 4:49 AM FINANCIAL ASSISTANCE SPECIALIST 09/25/2024 4:49 AM FINANCIAL ASSISTANCE SPECIALIST Result [facility] Arnulfo Jordan MD LAB POCT ORDERABLES - DEVIC E Final Result Performing Organization Address [facility] de Phone Number [facility] [address] [facility] [place] [address] * POCT glucose (09/25/2024 12:48 AM FINANCIAL ASSISTANCE SPECIALIST) Glucose, POC 83 70 - 199 mg/dL Comment: For Glucose values <35 mg/dl when Hematocrit is >60 mg/dl,the test may not accurately detect significant hypoglycemia,and testing in the Laboratory should be considered if clinically indicated. Blood 09/25/2024 12:4 8 AM FINANCIAL ASSISTANCE SPECIALIST 09/25/2024 12:48 AM FINANCIAL ASSISTANCE SPECIALIST Result [facility] us Arnulfo Jordan MD LAB POCT ORDERABLES - DEVIC E Final Result Performing Organization Address [facility] Co de Phone Number [facility] [address] [facility] [place] [address] * POCT glucose (09/24/2024 8:56 PM FINANCIAL ASSISTANCE SPECIALIST) Glucose, POC 83 70 - 199 mg/dL Comment: For Glucose values <35 mg/dl when Hematocrit is >60 mg/dl,the test may not accurately detect significant hypoglycemia,and testing in the Laboratory should be considered if clinically indicated. Blood 09/24/2024 8:56 PM FINANCIAL ASSISTANCE SPECIALIST 09/24/2024 8:56 PM FINANCIAL ASSISTANCE SPECIALIST Result [facility] Arnulfo Jordan MD LAB POCT ORDERABLES - DEVIC E Final Result Performing Organization Address [facility] Co de Phone Number [facility] [address] [facility] [place] [address] * POCT glucose (09/24/2024 4:20 PM FINANCIAL ASSISTANCE SPECIALIST) Glucose, POC 83 70 - 199 mg/dL Comment: For Glucose values <35 mg/dl when Hematocrit is >60 mg/dl,the test may not accurately detect significant hypoglycemia,and testing in the Laboratory should be considered if clinically indicated. Blood 09/24/2024 4:20 PM FINANCIAL ASSISTANCE SPECIALIST 09/24/2024 4:20 PM FINANCIAL ASSISTANCE SPECIALIST Result [facility] Arnulfo Jordan MD LAB POCT ORDERABLES - DEVIC E Final Result Performing Organization Address [facility] de Phone Number [facility] [address] [facility] [place] [address] * POCT glucose (09/24/2024 12:13 PM FINANCIAL ASSISTANCE SPECIALIST) Glucose, POC 91 70 - 199 mg/dL Comment: For Glucose values <35 mg/dl when Hematocrit is >60 mg/dl,the test may not accurately detect significant hypoglycemia,and testing in the Laboratory should be considered if clinically indicated. Blood 09/24/2024 12:1 3 PM FINANCIAL ASSISTANCE SPECIALIST 09/24/2024 12:13 PM FINANCIAL ASSISTANCE SPECIALIST Result [facility] us Arnulfo Jordan MD LAB POCT ORDERABLES - DEVIC E Final Result [facility] [address] Department [place] [address] * XR Chest 1 View (09/24/2024 8:18 AM FINANCIAL ASSISTANCE SPECIALIST) Anatomical Region Laterality Modality Body, Chest N/A Computed Radiogr aphy 09/24/2024 8:36 AM FINANCIAL ASSISTANCE SPECIALIST Impressions 09/24/2024 8:36 AM FINANCIAL ASSISTANCE SPECIALIST Patchy airspace opacities greatest in the left lung base but also projecting over the left hilum and to a lesser extent the right hilum are not substantially changed and likely representing multifocal pneumonia and/or sequela of aspiration. Trace left pleural effusion. No right pleural effusion. No pneumothorax. Heart size is stable. Electronically signed by: Nithin Gonzalez MD, PHD Narrative 09/24/2024 8:36 AM FINANCIAL ASSISTANCE SPECIALIST EXAMINATION: XR CHEST 1 VIEW HISTORY: Shortness [...] lt * POCT glucose (09/24/2024 4:12 AM FINANCIAL ASSISTANCE SPECIALIST) Glucose, POC 129 70 - 199 mg/dL Comment: For Glucose values <35 mg/dl when Hematocrit is >60 mg/dl,the test may not accurately detect significant hypoglycemia,and testing in the Laboratory should be considered if clinically indicated. Blood 09/24/2024 4:12 AM FINANCIAL ASSISTANCE SPECIALIST 09/24/2024 4:12 AM FINANCIAL ASSISTANCE SPECIALIST Arnulfo Jordan MD LAB POCT ORDERABLES - DEVIC E Final Result Performing Organization Address [facility] Co de Phone Number [facility] [address] [facility] [address] [place], [place] [id number] * POCT glucose (09/24/2024 2:44 AM FINANCIAL ASSISTANCE SPECIALIST) Glucose, POC 132 70 - 199 mg/dL Comment: For Glucose values <35 mg/dl when Hematocrit is >60 mg/dl,the test may not accurately detect significant hypoglycemia,and testing in the Laboratory should be considered if clinically indicated. Blood 09/24/2024 2:44 AM FINANCIAL ASSISTANCE SPECIALIST 09/24/2024 2:44 AM FINANCIAL ASSISTANCE SPECIALIST Arnulfo Jordan MD LAB POCT ORDERABLES - DEVIC E Final Result Performing Organization Address [facility] de Phone Number [facility] [address] [facility] [place] [address] * (ABNORMAL) POCT glucose (09/24/2024 1:06 AM FINANCIAL ASSISTANCE SPECIALIST) Glucose, POC 59(L) 70 - 199 mg/dL Comment: For Glucose values <35 mg/dl when Hematocrit is >60 mg/dl,the test may not accurately detect significant hypoglycemia,and testing in the Laboratory should be considered if clinically indicated. Blood 09/24/2024 1:06 AM FINANCIAL ASSISTANCE SPECIALIST 09/24/2024 1:06 AM FINANCIAL ASSISTANCE SPECIALIST Arnulfo Jordan MD LAB POCT ORDERABLES - DEVIC E Final Result Performing Organization Address [facility] Co de Phone Number [facility] [address] [facility] [address] [place], [place] [id number] * (ABNORMAL) POCT glucose (09/24/2024 12:44 AM FINANCIAL ASSISTANCE SPECIALIST) Glucose, POC 65(L) 70 - 199 mg/dL Comment: For Glucose values <35 mg/dl when Hematocrit is >60 mg/dl,the test may not accurately detect significant hypoglycemia,and testing in the Laboratory should be considered if clinically indicated. Blood 09/24/2024 12:4 4 AM FINANCIAL ASSISTANCE SPECIALIST 09/24/2024 12:44 AM FINANCIAL ASSISTANCE SPECIALIST Arnulfo Jordan MD LAB POCT ORDERABLES - DEVIC E Final Result Performing Organization Address [facility] Phone Number [facility] [address] [facility] [place] [address] * (ABNORMAL) POCT glucose (09/24/2024 12:22 AM FINANCIAL ASSISTANCE SPECIALIST) Glucose, POC 68(L) 70 - 199 mg/dL Comment: For Glucose values <35 mg/dl when Hematocrit is >60 mg/dl,the test may not accurately detect significant hypoglycemia,and testing in the Laboratory should be considered if clinically indicated. Blood 09/24/2024 12:2 2 AM FINANCIAL ASSISTANCE SPECIALIST 09/24/2024 12:22 AM FINANCIAL ASSISTANCE SPECIALIST Arnulfo Jordan MD LAB POCT ORDERABLES - DEVIC E Final Result Performing Organization Address [facility] Phone Number [facility] [address] [facility] [place] [address] * POCT glucose (09/23/2024 9:34 PM FINANCIAL ASSISTANCE SPECIALIST) Glucose, POC 80 70 - 199 mg/dL Comment: For Glucose values <35 mg/dl when Hematocrit is >60 mg/dl,the test may not accurately detect significant hypoglycemia,and testing in the Laboratory should be considered if clinically indicated. Blood 09/23/2024 9:34 PM FINANCIAL ASSISTANCE SPECIALIST 09/23/2024 9:34 PM FINANCIAL ASSISTANCE SPECIALIST Guillermo Nair DO LAB POCT ORDERABLES - DE VICE Final Result Performing Organization Address [facility] de Phone Number [facility] [address] [facility] [place] [address] * POCT glucose (09/23/2024 4:10 PM FINANCIAL ASSISTANCE SPECIALIST) Glucose, POC 121 70 - 199 mg/dL Comment: For Glucose values <35 mg/dl when Hematocrit is >60 mg/dl,the test may not accurately detect significant hypoglycemia,and testing in the Laboratory should be considered if clinically indicated. Blood 09/23/2024 4:10 PM FINANCIAL ASSISTANCE SPECIALIST 09/23/2024 4:10 PM FINANCIAL ASSISTANCE SPECIALIST us Guillermo Nair DO LAB POCT ORDERABLES - DE VICE Final Result Performing Organization Address [facility]/ZIP Co de Phone Number [facility] [address] [facility] [place] [address] * POCT glucose (09/23/2024 1:10 PM FINANCIAL ASSISTANCE SPECIALIST) Glucose, POC 115 70 - 199 mg/dL Comment: For Glucose values <35 mg/dl when Hematocrit is >60 mg/dl,the test may not accurately detect significant hypoglycemia,and testing in the Laboratory should be considered if clinically indicated. Blood 09/23/2024 1:10 PM FINANCIAL ASSISTANCE SPECIALIST 09/23/2024 1:10 PM FINANCIAL ASSISTANCE SPECIALIST us Flo Villagran MD LAB POCT ORDERABLES - DEVICE Final Result Performing Organization Address City/[facility]/ZIP Co de Phone Number [facility] [address] [facility] [place] [address] * POCT glucose (09/23/2024 12:18 PM FINANCIAL ASSISTANCE SPECIALIST) Glucose, POC 83 70 - 199 mg/dL Comment: For Glucose values <35 mg/dl when Hematocrit is >60 mg/dl,the test may not accurately detect significant hypoglycemia,and testing in the Laboratory should be considered if clinically indicated. Blood 09/23/2024 12:1 8 PM FINANCIAL ASSISTANCE SPECIALIST 09/23/2024 12:18 PM FINANCIAL ASSISTANCE SPECIALIST Flo Villagran MD LAB POCT ORDERABLES - DEVICE Final Result Performing Organization Address [facility] Co de Phone Number [facility] [address] [facility] [place] [address] * (ABNORMAL) POCT glucose (09/23/2024 11:55 AM FINANCIAL ASSISTANCE SPECIALIST) Glucose, POC 69(L) 70 - 199 mg/dL Comment: For Glucose values <35 mg/dl when Hematocrit is >60 mg/dl,the test may not accurately detect significant hypoglycemia,and testing in the Laboratory should be considered if clinically indicated. Blood 09/23/2024 11:5 5 AM FINANCIAL ASSISTANCE SPECIALIST 09/23/2024 11:55 AM FINANCIAL ASSISTANCE SPECIALIST Flo Villagran MD LAB POCT ORDERABLES - DEVICE Final Result Performing Organization Address [facility] de Phone Number [facility] [address] [facility] [place] [address] * (ABNORMAL) POCT glucose (09/23/2024 11:54 AM FINANCIAL ASSISTANCE SPECIALIST) Glucose, POC 63(L) 70 - 199 mg/dL Comment: For Glucose values <35 mg/dl when Hematocrit is >60 mg/dl,the test may not accurately detect significant hypoglycemia,and testing in the Laboratory should be considered if clinically indicated. Blood 09/23/2024 11:5 4 AM FINANCIAL ASSISTANCE SPECIALIST 09/23/2024 11:54 AM FINANCIAL ASSISTANCE SPECIALIST Flo Villagran MD LAB POCT ORDERABLES - DEVICE Final Result Performing Organization Address [facility] Co de Phone Number [facility] [address] [facility] [place] [address] * POCT glucose (09/23/2024 7:47 AM FINANCIAL ASSISTANCE SPECIALIST) Glucose, POC 71 70 - 199 mg/dL Comment: For Glucose values <35 mg/dl when Hematocrit is >60 mg/dl,the test may not accurately detect significant hypoglycemia,and testing in the Laboratory should be considered if clinically indicated. Blood 09/23/2024 7:47 AM FINANCIAL ASSISTANCE SPECIALIST 09/23/2024 7:47 AM FINANCIAL ASSISTANCE SPECIALIST Flo Villagran MD LAB POCT ORDERABLES - DEVICE Final Result Performing Organization Address [facility] Co de Phone Number [facility] [address] [facility] [place] [address] * POCT glucose (09/23/2024 3:27 AM FINANCIAL ASSISTANCE SPECIALIST) Glucose, POC 92 70 - 199 mg/dL Comment: For Glucose values <35 mg/dl when Hematocrit is >60 mg/dl,the test may not accurately detect significant hypoglycemia,and testing in the Laboratory should be considered if clinically indicated. Blood 09/23/2024 3:27 AM FINANCIAL ASSISTANCE SPECIALIST 09/23/2024 3:27 AM FINANCIAL ASSISTANCE SPECIALIST Result [facility] Flo Villagran MD LAB POCT ORDERABLES - DEVICE Final Result Performing Organization Address [facility] de Phone Number [facility] [address] [facility] [place] [address] * POCT glucose (09/23/2024 1:13 AM FINANCIAL ASSISTANCE SPECIALIST) Glucose, POC 113 70 - 199 mg/dL Comment: For Glucose values <35 mg/dl when Hematocrit is >60 mg/dl,the test may not accurately detect significant hypoglycemia,and testing in the Laboratory should be considered if clinically indicated. Blood 09/23/2024 1:13 AM FINANCIAL ASSISTANCE SPECIALIST 09/23/2024 1:13 AM FINANCIAL ASSISTANCE SPECIALIST Flo Villagran MD LAB POCT ORDERABLES - DEVICE Final Result Performing Organization Address [facility] Co de Phone Number [facility] [address] [facility] [place] [address] * POCT glucose (09/23/2024 12:17 AM FINANCIAL ASSISTANCE SPECIALIST) Glucose, POC 195 70 - 199 mg/dL Comment: For Glucose values <35 mg/dl when Hematocrit is >60 mg/dl,the test may not accurately detect significant hypoglycemia,and testing in the Laboratory should be considered if clinically indicated. Blood 09/23/2024 12:1 7 AM FINANCIAL ASSISTANCE SPECIALIST 09/23/2024 12:17 AM FINANCIAL ASSISTANCE SPECIALIST Flo Villagran MD LAB POCT ORDERABLES - DEVICE Final Result Performing Organization Address [facility] Co de Phone Number [facility] [address] [facility] [place] [address] * (ABNORMAL) POCT glucose (09/22/2024 11:54 PM FINANCIAL ASSISTANCE SPECIALIST) Glucose, POC 63(L) 70 - 199 mg/dL Comment: For Glucose values <35 mg/dl when Hematocrit is >60 mg/dl,the test may not accurately detect significant hypoglycemia,and testing in the Laboratory should be considered if clinically indicated. Blood 09/22/2024 11:5 4 PM FINANCIAL ASSISTANCE SPECIALIST 09/22/2024 11:54 PM FINANCIAL ASSISTANCE SPECIALIST Flo Villagran MD LAB POCT ORDERABLES - DEVICE Final Result Performing Organization Address [facility] Co de Phone Number [facility] [address] [place] [address] * (ABNORMAL) Blood gas, arterial (09/22/2024 8:33 PM FINANCIAL ASSISTANCE SPECIALIST) pH, Art 7.44 7.35 - 7.45 PCO2, Arterial 37 35 - 45 mmHg [facility] PO2, Arterial 81(L) 83 - 108 mmHg [facility] HCO3 Art (Calculated) 25 20 - 30 mmol/L [facility] BE, art 1 mmol/L [facility] Comment: Interpretive Data No Reference Range Established Current Interpretive Data was last revised on 2017 O2 Sat Art (Calculated) 96 94 - 98 % [facility] Blood 09/22/2024 8:33 PM FINANCIAL ASSISTANCE SPECIALIST 09/22/2024 8:36 PM FINANCIAL ASSISTANCE SPECIALIST Chad Veras MD LAB BLOOD ORDERABLES Final R esult Performing Organization Address [facility] Co de Phone Number [facility] [address] Department [place] [address] * POCT glucose (09/22/2024 7:46 PM FINANCIAL ASSISTANCE SPECIALIST) Glucose, POC 95 70 - 199 mg/dL Comment: For Glucose values <35 mg/dl when Hematocrit is >60 mg/dl,the test may not accurately detect significant hypoglycemia,and testing in the Laboratory should be considered if clinically indicated. Blood 09/22/2024 7:46 PM FINANCIAL ASSISTANCE SPECIALIST 09/22/2024 7:46 PM FINANCIAL ASSISTANCE SPECIALIST Flo Villagran MD LAB POCT ORDERABLES - DEVICE Final Result Performing Organization Address [facility] Co de Phone Number [facility] [address] [place] [address] * POCT glucose (09/22/2024 4:04 PM FINANCIAL ASSISTANCE SPECIALIST) Glucose, POC 166 70 - 199 mg/dL Comment: For Glucose values <35 mg/dl when Hematocrit is >60 mg/dl,the test may not accurately detect significant hypoglycemia,and testing in the Laboratory should be considered if clinically indicated. Blood 09/22/2024 4:04 PM FINANCIAL ASSISTANCE SPECIALIST 09/22/2024 4:04 PM FINANCIAL ASSISTANCE SPECIALIST Flo Villagran MD LAB POCT ORDERABLES - DEVICE Final Result Performing Organization Address [facility] Co de Phone Number [facility] [address] [place] [address] * POCT glucose (09/22/2024 11:51 AM FINANCIAL ASSISTANCE SPECIALIST) Glucose, POC 187 70 - 199 mg/dL Comment: For Glucose values <35 mg/dl when Hematocrit is >60 mg/dl,the test may not accurately detect significant hypoglycemia,and testing in the Laboratory should be considered if clinically indicated. Blood 09/22/2024 11:5 1 AM FINANCIAL ASSISTANCE SPECIALIST 09/22/2024 11:51 AM FINANCIAL ASSISTANCE SPECIALIST Flo Villagran MD LAB POCT ORDERABLES - DEVICE Final Result Performing Organization Address [facility] de Phone Number [facility] [address] [facility] [address] [place], [place] [id number] * (ABNORMAL) POCT glucose (09/22/2024 8:42 AM FINANCIAL ASSISTANCE SPECIALIST) Glucose, POC 210(H) 70 - 199 mg/dL Comment: For Glucose values <35 mg/dl when Hematocrit is >60 mg/dl,the test may not accurately detect significant hypoglycemia,and testing in the Laboratory should be considered if clinically indicated. Blood 09/22/2024 8:42 AM FINANCIAL ASSISTANCE SPECIALIST 09/22/2024 8:42 AM FINANCIAL ASSISTANCE SPECIALIST us Flo Villagran MD LAB POCT ORDERABLES - DEVICE Final Result Performing Organization Address [facility] de Phone Number [facility] [address] [facility] [place] [address] * POCT glucose (09/22/2024 4:05 AM FINANCIAL ASSISTANCE SPECIALIST) Glucose, POC 199 70 - 199 mg/dL Comment: For Glucose values <35 mg/dl when Hematocrit is >60 mg/dl,the test may not accurately detect significant hypoglycemia,and testing in the Laboratory should be considered if clinically indicated. Blood 09/22/2024 4:05 AM FINANCIAL ASSISTANCE SPECIALIST 09/22/2024 4:05 AM FINANCIAL ASSISTANCE SPECIALIST us Flo Villagran MD LAB POCT ORDERABLES - DEVICE Final Result [facility] [address] Department [place] [address] * XR Chest 1 View (09/22/2024 3:59 AM FINANCIAL ASSISTANCE SPECIALIST) Anatomical Region Laterality Modality Body, Chest N/A Computed Radiogr aphy 09/22/2024 9:18 AM FINANCIAL ASSISTANCE SPECIALIST Impressions 09/22/2024 9:18 AM FINANCIAL ASSISTANCE SPECIALIST The current study is compared with the [...] Blair Lopez M.D. Narrative 09/22/2024 9:18 AM FINANCIAL ASSISTANCE SPECIALIST EXAMINATION: XR CHEST 1 VIEW Procedure Note [...] lt * (ABNORMAL) eGFR (09/22/2024 2:24 AM FINANCIAL ASSISTANCE SPECIALIST) eGFR 53(L) >=60 mL/min/1. 73 m2 Comment: [...] last reviewed 2021. Blood 09/22/2024 2:24 AM FINANCIAL ASSISTANCE SPECIALIST 09/22/2024 2:55 AM FINANCIAL ASSISTANCE SPECIALIST us Flo Villagran MD LAB BLOOD ORDERABLES Final R esult [facility] [address] Department [place] [address] * (ABNORMAL) CBC without differential (09/22/2024 2:24 AM FINANCIAL ASSISTANCE SPECIALIST) WBC 15.1(H) 3.8 - 9.9 K/cumm Hgb 7.5(L) 11.9 - 15.5 g/dL [facility] Hct 23.4(L) 35.6 - 45.5 % [facility] Plt 248 150 - 400 K/cumm [facility] MPV 12.5(H) 9.1 - 12.3 fL [facility] RBC 2.55(L) 3.90 - 5.20 M/cumm [facility] MCV 91.8 81.3 - 96.4 fL [facility] MCH 29.4 27.1 - 33.3 pg [facility] MCHC 32.1(L) 32.3 - 35.7 g/dL [facility] RDW CV 15.2(H) 11.1 - 14.9 % [facility] RDW SD 50.1(H) 35.7 - 48.1 fL [facility] NRBC abs 0.00 0.00 - 0.01 K/cumm [facility] Blood 09/22/2024 2:24 AM FINANCIAL ASSISTANCE SPECIALIST 09/22/2024 2:40 AM FINANCIAL ASSISTANCE SPECIALIST Flo Villagran MD LAB BLOOD ORDERABLES Final R esult Performing Organization Address City/[facility] Co de Phone Number [facility] [address] [employer] [place], [place] [id number] * Magnesium (09/22/2024 2:24 AM FINANCIAL ASSISTANCE SPECIALIST) [facility] Magnesium 2.0 1.4 - 2.5 mg/dL Blood 09/22/2024 2:24 AM FINANCIAL ASSISTANCE SPECIALIST 09/22/2024 2:55 AM FINANCIAL ASSISTANCE SPECIALIST Flo Villagran MD LAB BLOOD ORDERABLES Final R esult Performing Organization Address [facility] de Phone Number [facility] [address] [place] [address] * (ABNORMAL) Renal function panel (09/22/2024 2:24 AM FINANCIAL ASSISTANCE SPECIALIST) [facility] Sodium 140 135 - 145 mmol/L Potassium, pl 3.4 3.3 - 4.9 mmol/L [facility] Chloride 108 97 - 110 mmol/L [facility] CO2 20(L) 22 - 32 mmol/L [facility] Anion gap 12 2 - 15 mmol/L [facility] BUN 31(H) 6 - 25 mg/dL [facility] Creatinine 1.25(H) 0.60 - 1.10 mg/dL [facility] Glucose 189 70 - 199 mg/dL [facility] Comment: Interpretive Data Fasting glucose >/= 126 [...] 8.5 - 10.3 mg/dL [facility] Phosphorus, pl 3.6 2.3 - 4.5 mg/dL [facility] Albumin 2.1(L) 3.5 - 5.0 g/dL [facility] Blood 09/22/2024 2:24 AM FINANCIAL ASSISTANCE SPECIALIST 09/22/2024 2:55 AM FINANCIAL ASSISTANCE SPECIALIST Flo Villagran MD LAB BLOOD ORDERABLES Final R esult Performing Organization Address [facility] Co de Phone Number [facility] [address] [employer] [place], [place] [id number] * POCT glucose (09/21/2024 11:58 PM FINANCIAL ASSISTANCE SPECIALIST) Glucose, POC 177 70 - 199 mg/dL Comment: For Glucose values <35 mg/dl when Hematocrit is >60 mg/dl,the test may not accurately detect significant hypoglycemia,and testing in the Laboratory should be considered if clinically indicated. Blood 09/21/2024 11:5 8 PM FINANCIAL ASSISTANCE SPECIALIST 09/21/2024 11:58 PM FINANCIAL ASSISTANCE SPECIALIST Flo Villagran MD LAB POCT ORDERABLES - DEVICE Final Result Performing Organization Address City/[facility]/ZIP Co de Phone Number [facility] [address] [place] [address] * POCT glucose (09/21/2024 7:01 PM FINANCIAL ASSISTANCE SPECIALIST) Glucose, POC 134 70 - 199 mg/dL Comment: For Glucose values <35 mg/dl when Hematocrit is >60 mg/dl,the test may not accurately detect significant hypoglycemia,and testing in the Laboratory should be considered if clinically indicated. Blood 09/21/2024 7:01 PM FINANCIAL ASSISTANCE SPECIALIST 09/21/2024 7:01 PM FINANCIAL ASSISTANCE SPECIALIST Flo Villagran MD LAB POCT ORDERABLES - DEVICE Final Result Performing Organization Address [facility] Co de Phone Number [facility] [address] [facility] [place] [address] * POCT glucose (09/21/2024 3:10 PM FINANCIAL ASSISTANCE SPECIALIST) Glucose, POC 140 70 - 199 mg/dL Comment: For Glucose values <35 mg/dl when Hematocrit is >60 mg/dl,the test may not accurately detect significant hypoglycemia,and testing in the Laboratory should be considered if clinically indicated. Blood 09/21/2024 3:1 0 PM FINANCIAL ASSISTANCE SPECIALIST 09/21/2024 3:10 PM FINANCIAL ASSISTANCE SPECIALIST Flo Villagran MD LAB POCT ORDERABLES - DEVICE Final Result Performing Organization Address [facility] Co de Phone Number [facility] [address] [facility] [address] [place], [place] [id number] * Potassium (09/21/2024 2:07 PM FINANCIAL ASSISTANCE SPECIALIST) Potassium, pl 3.9 3.3 - 4.9 mmol/L Blood 09/21/2024 2:07 PM FINANCIAL ASSISTANCE SPECIALIST 09/21/2024 2:07 PM FINANCIAL ASSISTANCE SPECIALIST Flo Villagran MD LAB BLOOD ORDERABLES Final R esult Performing Organization Address [facility] Co de Phone Number [facility] [address] [facility] [place] [address] * (ABNORMAL) POCT glucose (09/21/2024 11:30 AM FINANCIAL ASSISTANCE SPECIALIST) Glucose, POC 200(H) 70 - 199 mg/dL Comment: For Glucose values <35 mg/dl when Hematocrit is >60 mg/dl,the test may not accurately detect significant hypoglycemia,and testing in the Laboratory should be considered if clinically indicated. Blood 09/21/2024 11:3 0 AM FINANCIAL ASSISTANCE SPECIALIST 09/21/2024 11:30 AM FINANCIAL ASSISTANCE SPECIALIST Flo Villagran MD LAB POCT ORDERABLES - DEVICE Final Result Performing Organization Address [facility] de Phone Number [facility] [address] [facility] [place] [address] * (ABNORMAL) POCT glucose (09/21/2024 7:19 AM FINANCIAL ASSISTANCE SPECIALIST) [facility] Signature Glucose, POC 230(H) 70 - 199 mg/dL Comment: For Glucose values <35 mg/dl when Hematocrit is >60 mg/dl,the test may not accurately detect significant hypoglycemia,and testing in the Laboratory should be considered if clinically indicated. Blood 09/21/2024 7:19 AM FINANCIAL ASSISTANCE SPECIALIST 09/21/2024 7:19 AM FINANCIAL ASSISTANCE SPECIALIST Flo Villagran MD LAB POCT ORDERABLES - DEVICE Final Result Performing Organization Address [facility] de Phone Number [facility] [address] [facility] [place] [address] * XR Chest 1 View (09/21/2024 4:44 AM FINANCIAL ASSISTANCE SPECIALIST) Anatomical Region Laterality Modality Body, Chest N/A Computed Radiogr aphy 09/21/2024 7:37 AM FINANCIAL ASSISTANCE SPECIALIST Impressions 09/21/2024 7:37 AM FINANCIAL ASSISTANCE SPECIALIST Comparison is made to 2024. Endotracheal tube 2.7 cm above the jessenia. Nasogastric tube tip located with diaphragm, not included [id number]. There is slightly improved aeration within the left retrocardiac location likely representing improving aspiration/pneumonia. There is mild right basilar atelectasis. No pleural effusion or pneumothorax. Stable heart size. Electronically signed by: Ruiz Coles M.D. Narrative 09/21/2024 7:37 AM FINANCIAL ASSISTANCE SPECIALIST Examination: Chest 1 view Procedure Note Ruiz Coles MD - 09/21/2024 Examination: Chest 1 view IMPRESSION: Comparison is made to 2024. Endotracheal tube 2.7 cm above the jessenia. Nasogastric tube tip located with diaphragm, not included [id number]. There is slightly improved aeration within the left retrocardiac location likely representing improving aspiration/pneumonia. There is mild right basilar atelectasis. No pleural effusion or pneumothorax. Stable heart size. Electronically signed by: Ruiz Coles M.D. Flo Villagran MD IMG XR PROCEDURES Final Resu lt * (ABNORMAL) POCT glucose (09/21/2024 3:47 AM FINANCIAL ASSISTANCE SPECIALIST) Glucose, POC 235(H) 70 - 199 mg/dL Comment: For Glucose values <35 mg/dl when Hematocrit is >60 mg/dl,the test may not accurately detect significant hypoglycemia,and testing in the Laboratory should be considered if clinically indicated. Blood 09/21/2024 3:47 AM FINANCIAL ASSISTANCE SPECIALIST 09/21/2024 3:47 AM FINANCIAL ASSISTANCE SPECIALIST Flo Villagran MD LAB POCT ORDERABLES - DEVICE Final Result [facility] [address] Department [place] [address] * (ABNORMAL) eGFR (09/21/2024 1:48 AM FINANCIAL ASSISTANCE SPECIALIST) eGFR 50(L) >=60 mL/min/1. 73 m2 Comment: [...] last reviewed 2021. Blood 09/21/2024 1:48 AM FINANCIAL ASSISTANCE SPECIALIST 09/21/2024 2:06 AM FINANCIAL ASSISTANCE SPECIALIST us Flo Villagran MD LAB BLOOD ORDERABLES Final R esult [facility] [address] Department [place] [address] * (ABNORMAL) CBC without differential (09/21/2024 1:48 AM FINANCIAL ASSISTANCE SPECIALIST) WBC 13.1(H) 3.8 - 9.9 K/cumm Hgb 7.6(L) 11.9 - 15.5 g/dL [facility] Hct 24.6(L) 35.6 - 45.5 % [facility] Plt 229 150 - 400 K/cumm [facility] MPV 12.5(H) 9.1 - 12.3 fL [facility] RBC 2.65(L) 3.90 - 5.20 M/cumm [facility] MCV 92.8 81.3 - 96.4 fL [facility] MCH 28.7 27.1 - 33.3 pg [facility] MCHC 30.9(L) 32.3 - 35.7 g/dL [facility] RDW CV 15.5(H) 11.1 - 14.9 % [facility] RDW SD 51.8(H) 35.7 - 48.1 fL [facility] NRBC abs 0.00 0.00 - 0.01 K/cumm [facility] Blood 09/21/2024 1:48 AM FINANCIAL ASSISTANCE SPECIALIST 09/21/2024 2:06 AM FINANCIAL ASSISTANCE SPECIALIST Flo Villagran MD LAB BLOOD ORDERABLES Final R esult Performing Organization Address [facility] Co de Phone Number [facility] [address] [place] [address] * Phosphorus (09/21/2024 1:48 AM FINANCIAL ASSISTANCE SPECIALIST) Phosphorus, pl 3.2 2.3 - 4.5 mg/dL Blood 09/21/2024 1:48 AM FINANCIAL ASSISTANCE SPECIALIST 09/21/2024 2:06 AM FINANCIAL ASSISTANCE SPECIALIST Flo Villagran MD LAB BLOOD ORDERABLES Final R esult Performing Organization Address [facility] de Phone Number [facility] [address] [place] [address] * Magnesium (09/21/2024 1:48 AM FINANCIAL ASSISTANCE SPECIALIST) Magnesium 2.0 1.4 - 2.5 mg/dL Blood 09/21/2024 1:48 AM FINANCIAL ASSISTANCE SPECIALIST 09/21/2024 2:06 AM FINANCIAL ASSISTANCE SPECIALIST Result [facility] Flo Villagran MD LAB BLOOD ORDERABLES Final R esult Performing Organization Address [facility] Co de Phone Number [facility] [address] [place] [address] * Bilirubin, direct (09/21/2024 1:48 AM FINANCIAL ASSISTANCE SPECIALIST) Bilirubin, direct <0.2 0.1 - 0.3 mg/dL Blood 09/21/2024 1:48 AM FINANCIAL ASSISTANCE SPECIALIST 09/21/2024 2:06 AM FINANCIAL ASSISTANCE SPECIALIST Result [facility] Flo Villagran MD LAB BLOOD ORDERABLES Final R esult Performing Organization Address [facility] Co de Phone Number [facility] [address] [place] [facility] [place] [address] * (ABNORMAL) Comprehensive metabolic panel (09/21/2024 1:48 AM FINANCIAL ASSISTANCE SPECIALIST) Sodium 144 135 - 145 mmol/L Potassium, pl 2.9(L) 3.3 - 4.9 mmol/L [facility] Chloride 112(H) 97 - 110 mmol/L [facility] CO2 19(L) 22 - 32 mmol/L [facility] Anion gap 13 2 - 15 mmol/L [facility] BUN 32(H) 6 - 25 mg/dL [facility] Creatinine 1.31(H) 0.60 - 1.10 mg/dL [facility] Glucose 259(H) 70 - 199 mg/dL [facility] Comment: Interpretive Data Fasting glucose >/= 126 [...] 8.5 - 10.3 mg/dL [facility] Bilirubin, total 0.2 0.1 - 1.2 mg/dL [facility] Protein, pl 5.6(L) 6.5 - 8.5 g/dL [facility] Albumin 2.0(L) 3.5 - 5.0 g/dL [facility] Alk phos 135(H) 40 - 130 Units/L [facility] ALT 16 7 - 45 Units/L [facility] AST 23 10 - 45 Units/L [facility] Blood 09/21/2024 1:48 AM FINANCIAL ASSISTANCE SPECIALIST 09/21/2024 2:06 AM FINANCIAL ASSISTANCE SPECIALIST us Flo Villagran MD LAB BLOOD ORDERABLES Final R esult [facility] [address] [facility] [place] [address] * (ABNORMAL) POCT glucose (09/20/2024 11:54 PM FINANCIAL ASSISTANCE SPECIALIST) Glucose, POC 264(H) 70 - 199 mg/dL Comment: For Glucose values <35 mg/dl when Hematocrit is >60 mg/dl,the test may not accurately detect significant hypoglycemia,and testing in the Laboratory should be considered if clinically indicated. Blood 09/20/2024 11:5 4 PM FINANCIAL ASSISTANCE SPECIALIST 09/20/2024 11:54 PM FINANCIAL ASSISTANCE SPECIALIST Flo Villagran MD LAB POCT ORDERABLES - DEVICE Final Result Performing Organization Address [facility] Co de Phone Number [facility] [address] [facility] [place] [address] * (ABNORMAL) POCT glucose (09/20/2024 7:03 PM FINANCIAL ASSISTANCE SPECIALIST) Glucose, POC 253(H) 70 - 199 mg/dL Comment: For Glucose values <35 mg/dl when Hematocrit is >60 mg/dl,the test may not accurately detect significant hypoglycemia,and testing in the Laboratory should be considered if clinically indicated. Blood 09/20/2024 7:03 PM FINANCIAL ASSISTANCE SPECIALIST 09/20/2024 7:03 PM FINANCIAL ASSISTANCE SPECIALIST Flo Villagran MD LAB POCT ORDERABLES - DEVICE Final Result Performing Organization Address City/[facility]/ZIP Co de Phone Number [facility] [address] [facility] [place] [address] * POCT glucose (09/20/2024 3:28 PM FINANCIAL ASSISTANCE SPECIALIST) Glucose, POC 179 70 - 199 mg/dL Comment: For Glucose values <35 mg/dl when Hematocrit is >60 mg/dl,the test may not accurately detect significant hypoglycemia,and testing in the Laboratory should be considered if clinically indicated. Blood 09/20/2024 3:28 PM FINANCIAL ASSISTANCE SPECIALIST 09/20/2024 3:28 PM FINANCIAL ASSISTANCE SPECIALIST Flo Villagran MD LAB POCT ORDERABLES - DEVICE Final Result Performing Organization Address [facility] de Phone Number [facility] [address] Department [place] [address] * (ABNORMAL) POCT glucose (09/20/2024 11:48 AM FINANCIAL ASSISTANCE SPECIALIST) Glucose, POC 213(H) 70 - 199 mg/dL Comment: For Glucose values <35 mg/dl when Hematocrit is >60 mg/dl,the test may not accurately detect significant hypoglycemia,and testing in the Laboratory should be considered if clinically indicated. Blood 09/20/2024 11:4 8 AM FINANCIAL ASSISTANCE SPECIALIST 09/20/2024 11:48 AM FINANCIAL ASSISTANCE SPECIALIST Flo Villagran MD LAB POCT ORDERABLES - DEVICE Final Result Performing Organization Address [facility] de Phone Number [facility] [address] Department [place] [address] * (ABNORMAL) Blood gas, arterial (09/20/2024 10:54 AM FINANCIAL ASSISTANCE SPECIALIST) pH, Art 7.43 7.35 - 7.45 PCO2, Arterial 30(L) 35 - 45 mmHg [facility] PO2, Arterial 82(L) 83 - 108 mmHg [facility] HCO3 Art (Calculated) 20 20 - 30 mmol/L [facility] BE, art -3 mmol/L [facility] Comment: Interpretive Data No Reference Range Established Current Interpretive Data was last revised on 2017 O2 Sat Art (Calculated) 96 94 - 98 % [facility] Blood 09/20/2024 10:5 4 AM FINANCIAL ASSISTANCE SPECIALIST 09/20/2024 10:57 AM FINANCIAL ASSISTANCE SPECIALIST Flo Villagran MD LAB BLOOD ORDERABLES Final R esult Performing Organization Address [facility] de Phone Number [facility] [address] Department [place] [address] * XR Chest 1 View (09/20/2024 9:17 AM FINANCIAL ASSISTANCE SPECIALIST) Anatomical Region Laterality Modality Body, Chest N/A Computed Radiogr aphy 09/20/2024 10:0 9 AM FINANCIAL ASSISTANCE SPECIALIST Impressions 09/20/2024 10:09 AM FINANCIAL ASSISTANCE SPECIALIST Comparison to 09/17/2024. An endotracheal tube terminates approximately 2.5 cm above the jessenia. Endogastric tube coils in the peripyloric region. Bilateral airspace opacities, left greater than right, with mid to lower lung zone predominance has slightly improved. No pleural effusion or pneumothorax. Unchanged heart size. The Electronically signed by: Gibran Astudillo M.D. Narrative 09/20/2024 10:09 AM FINANCIAL ASSISTANCE SPECIALIST EXAMINATION: 1 view chest radiograph Procedure Note [...] lt * POCT glucose (09/20/2024 7:20 AM FINANCIAL ASSISTANCE SPECIALIST) Glucose, POC 159 70 - 199 mg/dL Comment: For Glucose values <35 mg/dl when Hematocrit is >60 mg/dl,the test may not accurately detect significant hypoglycemia,and testing in the Laboratory should be considered if clinically indicated. Blood 09/20/2024 7:20 AM FINANCIAL ASSISTANCE SPECIALIST 09/20/2024 7:20 AM FINANCIAL ASSISTANCE SPECIALIST us Flo Villagran MD LAB POCT ORDERABLES - DEVICE Final Result Performing Organization Address [facility] Co de Phone Number [facility] [address] [place] [address] * POCT glucose (09/20/2024 3:37 AM FINANCIAL ASSISTANCE SPECIALIST) [facility] Glucose, POC 195 70 - 199 mg/dL Comment: For Glucose values <35 mg/dl when Hematocrit is >60 mg/dl,the test may not accurately detect significant hypoglycemia,and testing in the Laboratory should be considered if clinically indicated. Blood 09/20/2024 3:37 AM FINANCIAL ASSISTANCE SPECIALIST 09/20/2024 3:37 AM FINANCIAL ASSISTANCE SPECIALIST Flo Villagran MD LAB POCT ORDERABLES - DEVICE Final Result Performing Organization Address [facility] Co de Phone Number [facility] [address] [place] [address] * (ABNORMAL) eGFR (09/20/2024 12:27 AM FINANCIAL ASSISTANCE SPECIALIST) [facility] eGFR 43(L) >=60 mL/min/1. 73 m2 [...] reviewed 2021. Blood 09/20/2024 12:2 7 AM FINANCIAL ASSISTANCE SPECIALIST 09/20/2024 12:27 AM FINANCIAL ASSISTANCE SPECIALIST us Elida Vigil DO LAB BLOOD ORDERABLES F inal Result [facility] [address] Department [place] [address] * (ABNORMAL) Differential, auto (09/20/2024 12:27 AM FINANCIAL ASSISTANCE SPECIALIST) Neutrophil abs 8.9(H) 1.5 - 6.5 K/cumm Imm gran abs 0.5(H) 0.0 - 0.1 K/cumm [facility] Lymphocyte abs 0.9 0.8 - 3.3 K/cumm [facility] Monocyte abs 0.7 0.2 - 0.8 K/cumm [facility] Eosinophil abs 0.2 0.0 - 0.5 K/cumm [facility] Basophil abs 0.0 0.0 - 0.1 K/cumm [facility] Neutrophil pct 79.8 % [facility] Comment: Interpretive Data Percent cell count reference ranges are not reported, since discordance with absolute values may lead to misinterpretation of CBC data. Current Interpretive Data was last revised on 2017. Imm gran pct 4.5 % [facility] Comment: Interpretive Data Percent cell count reference ranges are not reported, since discordance with absolute values may lead to misinterpretation of CBC data. Current Interpretive Data was last revised on 2017. Lymphocyte pct 7.8 % [facility] Comment: Interpretive Data Percent cell count reference ranges are not reported, since discordance with absolute values may lead to misinterpretation of CBC data. Current Interpretive Data was last revised on 2017. Monocyte pct 6.3 % [facility] Comment: Interpretive Data Percent cell count reference ranges are not reported, since discordance with absolute values may lead to misinterpretation of CBC data. Current Interpretive Data was last revised on 2017. Eosinophil pct 1.4 % [facility] Comment: Interpretive Data Percent cell count reference ranges are not reported, since discordance with absolute values may lead to misinterpretation of CBC data. Current Interpretive Data was last revised on 2017. Basophil pct 0.2 % [facility] Comment: Interpretive Data Percent cell count reference ranges are not reported, since discordance with absolute values may lead to misinterpretation of CBC data. Current Interpretive Data was last revised on 2017. Blood 09/20/2024 12:2 7 AM FINANCIAL ASSISTANCE SPECIALIST 09/20/2024 12:27 AM FINANCIAL ASSISTANCE SPECIALIST Elida Winsome Vigil DO LAB BLOOD ORDERABLES F inal Result Performing Organization Address [facility]/ZIP Co de Phone Number [facility] [address] Department [place] [address] * (ABNORMAL) CBC with auto differential (09/20/2024 12:27 AM FINANCIAL ASSISTANCE SPECIALIST) WBC 11.2(H) 3.8 - 9.9 K/cumm Hgb 7.6(L) 11.9 - 15.5 g/dL [facility] Hct 24.5(L) 35.6 - 45.5 % [facility] Plt 190 150 - 400 K/cumm [facility] MPV 13.0(H) 9.1 - 12.3 fL [facility] RBC 2.67(L) 3.90 - 5.20 M/cumm [facility] MCV 91.8 81.3 - 96.4 fL [facility] MCH 28.5 27.1 - 33.3 pg [facility] MCHC 31.0(L) 32.3 - 35.7 g/dL [facility] RDW CV 15.2(H) 11.1 - 14.9 % [facility] RDW SD 50.5(H) 35.7 - 48.1 fL [facility] NRBC abs 0.00 0.00 - 0.01 K/cumm [facility] Blood 09/20/2024 12:2 7 AM FINANCIAL ASSISTANCE SPECIALIST 09/20/2024 12:27 AM FINANCIAL ASSISTANCE SPECIALIST Elida Vigil DO LAB BLOOD ORDERABLES F inal Result Performing Organization Address [facility]/ZIP Co de Phone Number [facility] [address] Department [place] [address] * (ABNORMAL) Comprehensive metabolic panel (09/20/2024 12:27 AM FINANCIAL ASSISTANCE SPECIALIST) Sodium 147(H) 135 - 145 mmol/L Potassium, pl 3.3 3.3 - 4.9 mmol/L [facility] Chloride 117(H) 97 - 110 mmol/L [facility] CO2 18(L) 22 - 32 mmol/L [facility] Anion gap 12 2 - 15 mmol/L [facility] BUN 40(H) 6 - 25 mg/dL [facility] [facility] Creatinine 1.48(H) 0.60 - 1.10 mg/dL [facility] Glucose 221(H) 70 - 199 mg/dL [facility] Comment: Interpretive Data Fasting glucose >/= 126 [...] 8.5 - 10.3 mg/dL [facility] Bilirubin, total 0.2 0.1 - 1.2 mg/dL [facility] Protein, pl 5.6(L) 6.5 - 8.5 g/dL [facility] Albumin 2.1(L) 3.5 - 5.0 g/dL [facility] Alk phos 134(H) 40 - 130 Units/L [facility] ALT 14 7 - 45 Units/L [facility] AST 27 10 - 45 Units/L [facility] Blood 09/20/2024 12:2 7 AM FINANCIAL ASSISTANCE SPECIALIST 09/20/2024 12:27 AM FINANCIAL ASSISTANCE SPECIALIST Elida Vigil DO LAB BLOOD ORDERABLES F inal Result Performing Organization Address [facility] Co de Phone Number [facility] [address] [facility] [address] [place], [place] [id number] * (ABNORMAL) POCT glucose (09/19/2024 11:00 PM FINANCIAL ASSISTANCE SPECIALIST) Glucose, POC 217(H) 70 - 199 mg/dL Comment: For Glucose values <35 mg/dl when Hematocrit is >60 mg/dl,the test may not accurately detect significant hypoglycemia,and testing in the Laboratory should be considered if clinically indicated. Blood 09/19/2024 11:0 0 PM FINANCIAL ASSISTANCE SPECIALIST 09/19/2024 11:00 PM FINANCIAL ASSISTANCE SPECIALIST Flo Villagran MD LAB POCT ORDERABLES - DEVICE Final Result Performing Organization Address [facility] de Phone Number [facility] [address] [facility] [place] [address] * POCT glucose (09/19/2024 7:52 PM FINANCIAL ASSISTANCE SPECIALIST) Glucose, POC 196 70 - 199 mg/dL Comment: For Glucose values <35 mg/dl when Hematocrit is >60 mg/dl,the test may not accurately detect significant hypoglycemia,and testing in the Laboratory should be considered if clinically indicated. Blood 09/19/2024 7:52 PM FINANCIAL ASSISTANCE SPECIALIST 09/19/2024 7:52 PM FINANCIAL ASSISTANCE SPECIALIST Flo Villagran MD LAB POCT ORDERABLES - DEVICE Final Result Performing Organization Address [facility] de Phone Number [facility] [address] [facility] [place] [address] * POCT glucose (09/19/2024 4:55 PM FINANCIAL ASSISTANCE SPECIALIST) Glucose, POC 179 70 - 199 mg/dL Comment: For Glucose values <35 mg/dl when Hematocrit is >60 mg/dl,the test may not accurately detect significant hypoglycemia,and testing in the Laboratory should be considered if clinically indicated. Blood 09/19/2024 4:55 PM FINANCIAL ASSISTANCE SPECIALIST 09/19/2024 4:55 PM FINANCIAL ASSISTANCE SPECIALIST Flo Villagran MD LAB POCT ORDERABLES - DEVICE Final Result Performing Organization Address [facility] Co de Phone Number [facility] [address] Department of [address] [place], [place] [id number] * (ABNORMAL) POCT glucose (09/19/2024 12:31 PM FINANCIAL ASSISTANCE SPECIALIST) Glucose, POC 260(H) 70 - 199 mg/dL Comment: For Glucose values <35 mg/dl when Hematocrit is >60 mg/dl,the test may not accurately detect significant hypoglycemia,and testing in the Laboratory should be considered if clinically indicated. Blood 09/19/2024 12:3 1 PM FINANCIAL ASSISTANCE SPECIALIST 09/19/2024 12:31 PM FINANCIAL ASSISTANCE SPECIALIST Flo Villagran MD LAB POCT ORDERABLES - DEVICE Final Result Performing Organization Address [facility] Co de Phone Number [facility] [address] Department of [address] [place], [place] [id number] * Potassium (09/19/2024 10:04 AM FINANCIAL ASSISTANCE SPECIALIST) [facility] Potassium, pl 3.4 3.3 - 4.9 mmol/L Blood 09/19/2024 10:0 4 AM FINANCIAL ASSISTANCE SPECIALIST 09/19/2024 10:12 AM FINANCIAL ASSISTANCE SPECIALIST Elida Vigil DO LAB BLOOD ORDERABLES F inal Result Performing Organization Address [facility] Co de Phone Number [facility] [address] Department [address] [place], [place] [id number] * EEG (09/19/2024 8:50 AM FINANCIAL ASSISTANCE SPECIALIST) Anatomical Region Laterality Modality EEG Narrative 09/19/2024 1:18 PM FINANCIAL ASSISTANCE SPECIALIST REPORT OF ELECTROENCEPHALOGRAM DATE OF STUDY: 09/19/24 Brooke Marshall 1975 REASON FOR STUDY: Confusional state BRIEF HISTORY: Brooke Marshall is a 48 y.o. year old female currently in the ICU, still on ventilator. Admitted with DKA and influenza. Has been witnessed to have diminished mental status. DESCRIPTION: This is a routine 18-channel EEG. The underlying background rhythm consists of a [id number] voltage 5-7 Hz theta rhythm which remains [...] * (ABNORMAL) POCT glucose (09/19/2024 7:53 AM FINANCIAL ASSISTANCE SPECIALIST) [facility] Glucose, POC 214(H) 70 - 199 mg/dL Comment: For Glucose values <35 mg/dl when Hematocrit is >60 mg/dl,the test may not accurately detect significant hypoglycemia,and testing in the Laboratory should be considered if clinically indicated. Blood 09/19/2024 7:53 AM FINANCIAL ASSISTANCE SPECIALIST 09/19/2024 7:53 AM FINANCIAL ASSISTANCE SPECIALIST us Elida Vigil DO LAB POCT ORDERABLES - DEVICE Final Result [facility] [address] Department [place] [address] * (ABNORMAL) POCT glucose (09/19/2024 3:58 AM FINANCIAL ASSISTANCE SPECIALIST) Pathologist [facility] Glucose, POC 234(H) 70 - 199 mg/dL Comment: For Glucose values <35 mg/dl when Hematocrit is >60 mg/dl,the test may not accurately detect significant hypoglycemia,and testing in the Laboratory should be considered if clinically indicated. Blood 09/19/2024 3:58 AM FINANCIAL ASSISTANCE SPECIALIST 09/19/2024 3:58 AM FINANCIAL ASSISTANCE SPECIALIST Elidamartha Vigil DO LAB POCT ORDERABLES - DEVICE Final Result Performing Organization Address [facility] Co de Phone Number [facility] [address] Department [place] [address] * (ABNORMAL) eGFR (09/19/2024 1:46 AM FINANCIAL ASSISTANCE SPECIALIST) [facility] eGFR 36(L) >=60 mL/min/1. 73 m2 [...] last reviewed 2021. Blood 09/19/2024 1:46 AM FINANCIAL ASSISTANCE SPECIALIST 09/19/2024 1:46 AM FINANCIAL ASSISTANCE SPECIALIST Elida Winsome Vigil DO LAB BLOOD ORDERABLES F inal Result Performing Organization Address City/[facility]/ZIP Co de Phone Number [facility] [address] Department [place] [address] * (ABNORMAL) Differential, auto (09/19/2024 1:46 AM FINANCIAL ASSISTANCE SPECIALIST) Neutrophil abs 6.7(H) 1.5 - 6.5 K/cumm Imm gran abs 0.5(H) 0.0 - 0.1 K/cumm [facility] Lymphocyte abs 0.7(L) 0.8 - 3.3 K/cumm [facility] Monocyte abs 1.1(H) 0.2 - 0.8 K/cumm [facility] Eosinophil abs 0.1 0.0 - 0.5 K/cumm [facility] Basophil abs 0.0 0.0 - 0.1 K/cumm [facility] Neutrophil pct 72.5 % [facility] Comment: Interpretive Data Percent cell count reference ranges are not reported, since discordance with absolute values may lead to misinterpretation of CBC data. Current Interpretive Data was last revised on 2017. Imm gran pct 5.8 % [facility] Comment: Interpretive Data Percent cell count reference ranges are not reported, since discordance with absolute values may lead to misinterpretation of CBC data. Current Interpretive Data was last revised on 2017. Lymphocyte pct 8.1 % [facility] Comment: Interpretive Data Percent cell count reference ranges are not reported, since discordance with absolute values may lead to misinterpretation of CBC data. Current Interpretive Data was last revised on 2017. Monocyte pct 12.3 % [facility] Comment: Interpretive Data Percent cell count reference ranges are not reported, since discordance with absolute values may lead to misinterpretation of CBC data. Current Interpretive Data was last revised on 2017. Eosinophil pct 1.2 % [facility] Comment: Interpretive Data Percent cell count reference ranges are not reported, since discordance with absolute values may lead to misinterpretation of CBC data. Current Interpretive Data was last revised on 2017. Basophil pct 0.1 % [facility] Comment: Interpretive Data Percent cell count reference ranges are not reported, since discordance with absolute values may lead to misinterpretation of CBC data. Current Interpretive Data was last revised on 2017. Blood 09/19/2024 1:46 AM FINANCIAL ASSISTANCE SPECIALIST 09/19/2024 1:46 AM FINANCIAL ASSISTANCE SPECIALIST Elida Vigil DO LAB BLOOD ORDERABLES F inal Result Performing Organization Address [facility]/ZIP Co de Phone Number [facility] [address] [facility] [address] [place], [place] [phone] * (ABNORMAL) CBC with auto differential (09/19/2024 1:46 AM FINANCIAL ASSISTANCE SPECIALIST) [facility] WBC 9.2 3.8 - 9.9 K/cumm Hgb 7.5(L) 11.9 - 15.5 g/dL [facility] Hct 23.7(L) 35.6 - 45.5 % [facility] Plt 150 150 - 400 K/cumm [facility] MPV 13.4(H) 9.1 - 12.3 fL [facility] RBC 2.61(L) 3.90 - 5.20 M/cumm [facility] MCV 90.8 81.3 - 96.4 fL [facility] MCH 28.7 27.1 - 33.3 pg [facility] MCHC 31.6(L) 32.3 - 35.7 g/dL [facility] RDW CV 14.9 11.1 - 14.9 % [facility] RDW SD 49.1(H) 35.7 - 48.1 fL [facility] NRBC abs 0.00 0.00 - 0.01 K/cumm [facility] Blood 09/19/2024 1:46 AM FINANCIAL ASSISTANCE SPECIALIST 09/19/2024 1:46 AM FINANCIAL ASSISTANCE SPECIALIST Elida Vigil DO LAB BLOOD ORDERABLES E dited Result - Final Performing Organization Address [facility]/ZIP Co de Phone Number [facility] [address] [facility] [place] [address] * Manual Differential (09/19/2024 1:46 AM FINANCIAL ASSISTANCE SPECIALIST) [facility] Differential Auto RBC morphology Normal [facility] Morphology scrn See Comment [facility] Comment:PLT: Platelet morpho logy normal Blood 09/19/2024 1:46 AM FINANCIAL ASSISTANCE SPECIALIST 09/19/2024 1:46 AM FINANCIAL ASSISTANCE SPECIALIST Elida Schumacher [employer] LAB BLOOD ORDERABLES F inal Result Performing Organization Address City/[facility]/ZIP Co de Phone Number [facility] [address] [facility] [place] [address] * Phosphorus (09/19/2024 1:46 AM FINANCIAL ASSISTANCE SPECIALIST) [facility] Phosphorus, pl 3.0 2.3 - 4.5 mg/dL Blood 09/19/2024 1:46 AM FINANCIAL ASSISTANCE SPECIALIST 09/19/2024 1:46 AM FINANCIAL ASSISTANCE SPECIALIST Elidamartha Schumacher [employer] LAB BLOOD ORDERABLES F inal Result Performing Organization Address [facility] Co de Phone Number [facility] [address] [place] [address] * Magnesium (09/19/2024 1:46 AM FINANCIAL ASSISTANCE SPECIALIST) [facility] Magnesium 2.3 1.4 - 2.5 mg/dL Blood 09/19/2024 1:46 AM FINANCIAL ASSISTANCE SPECIALIST 09/19/2024 1:46 AM FINANCIAL ASSISTANCE SPECIALIST Elida Schumacher [employer] LAB BLOOD ORDERABLES F inal Result Performing Organization Address [facility]/ZIP Co de Phone Number [facility] [address] [facility] [place] [address] * (ABNORMAL) Comprehensive metabolic panel (09/19/2024 1:46 AM FINANCIAL ASSISTANCE SPECIALIST) [facility] Sodium 145 135 - 145 mmol/L Potassium, pl 2.6(C) 3.3 - 4.9 mmol/L [facility] Comment:Critical result call ed to and read back by Amber Gaines (RN) on 09/19/24 @ 0210 to [email or web address] Chloride 113(H) 97 - 110 mmol/L [facility] CO2 20(L) 22 - 32 mmol/L [facility] Anion gap 12 2 - 15 mmol/L [facility] BUN 41(H) 6 - 25 mg/dL [facility] Creatinine 1.73(H) 0.60 - 1.10 mg/dL [facility] Glucose 249(H) 70 - 199 mg/dL [facility] Comment: Interpretive Data Fasting glucose >/= 126 [...] 8.5 - 10.3 mg/dL [facility] Bilirubin, total 0.3 0.1 - 1.2 mg/dL [facility] Protein, pl 5.6(L) 6.5 - 8.5 g/dL [facility] Albumin 2.0(L) 3.5 - 5.0 g/dL [facility] Alk phos 127 40 - 130 Units/L [facility] ALT 12 7 - 45 Units/L [facility] AST 24 10 - 45 Units/L [facility] Blood 09/19/2024 1:46 AM FINANCIAL ASSISTANCE SPECIALIST 09/19/2024 1:46 AM FINANCIAL ASSISTANCE SPECIALIST us Elida Vigil DO LAB BLOOD ORDERABLES F inal Result [facility] [address] Department [place] [address] * Ammonia (09/19/2024 1:07 AM FINANCIAL ASSISTANCE SPECIALIST) Ammonia 40 <=50 mcmol/L Blood 09/19/2024 1:07 AM FINANCIAL ASSISTANCE SPECIALIST 09/19/2024 1:12 AM FINANCIAL ASSISTANCE SPECIALIST Elida Vigil LAB BLOOD ORDERABLES F inal Result Performing Organization Address [facility] Co de Phone Number [facility] [address] [facility] [place] [address] * (ABNORMAL) POCT glucose (09/18/2024 11:58 PM FINANCIAL ASSISTANCE SPECIALIST) Glucose, POC 231(H) 70 - 199 mg/dL Comment: For Glucose values <35 mg/dl when Hematocrit is >60 mg/dl,the test may not accurately detect significant hypoglycemia,and testing in the Laboratory should be considered if clinically indicated. Blood 09/18/2024 11:5 8 PM FINANCIAL ASSISTANCE SPECIALIST 09/18/2024 11:58 PM FINANCIAL ASSISTANCE SPECIALIST Elida Vigil [facility] POCT ORDERABLES - DEVICE Final Result Performing Organization Address [facility] de Phone Number [facility] [address] [facility] [place] [address] * (ABNORMAL) POCT glucose (09/18/2024 9:10 PM FINANCIAL ASSISTANCE SPECIALIST) Glucose, POC 261(H) 70 - 199 mg/dL Comment: For Glucose values <35 mg/dl when Hematocrit is >60 mg/dl,the test may not accurately detect significant hypoglycemia,and testing in the Laboratory should be considered if clinically indicated. Blood 09/18/2024 9:10 PM FINANCIAL ASSISTANCE SPECIALIST 09/18/2024 9:10 PM FINANCIAL ASSISTANCE SPECIALIST Elidamartha Vigil LAB POCT ORDERABLES - DEVICE Final Result Performing Organization Address [facility] Co de Phone Number [facility] [address] [facility] [place] [address] * (ABNORMAL) POCT glucose (09/18/2024 4:18 PM FINANCIAL ASSISTANCE SPECIALIST) Glucose, POC 229(H) 70 - 199 mg/dL Comment: For Glucose values <35 mg/dl when Hematocrit is >60 mg/dl,the test may not accurately detect significant hypoglycemia,and testing in the Laboratory should be considered if clinically indicated. Blood 09/18/2024 4:18 PM FINANCIAL ASSISTANCE SPECIALIST 09/18/2024 4:18 PM FINANCIAL ASSISTANCE SPECIALIST Elida Vigil DO LAB POCT ORDERABLES - DEVICE Final Result Performing Organization Address [facility] Co de Phone Number [facility] [address] [facility] [place] [address] * (ABNORMAL) POCT glucose (09/18/2024 12:07 PM FINANCIAL ASSISTANCE SPECIALIST) Glucose, POC 260(H) 70 - 199 mg/dL Comment: For Glucose values <35 mg/dl when Hematocrit is >60 mg/dl,the test may not accurately detect significant hypoglycemia,and testing in the Laboratory should be considered if clinically indicated. Blood 09/18/2024 12:0 7 PM FINANCIAL ASSISTANCE SPECIALIST 09/18/2024 12:07 PM FINANCIAL ASSISTANCE SPECIALIST Elida Vigil DO LAB POCT ORDERABLES - DEVICE Final Result Performing Organization Address [facility] de Phone Number [facility] [address] [facility] [place] [address] * (ABNORMAL) DIC Platelet (09/18/2024 8:13 AM FINANCIAL ASSISTANCE SPECIALIST) Plt 147(L) 150 - 400 K/cumm Blood 09/18/2024 8:13 AM FINANCIAL ASSISTANCE SPECIALIST 09/18/2024 8:25 AM FINANCIAL ASSISTANCE SPECIALIST Elidamartha Vigil DO LAB BLOOD ORDERABLES E dited Result - Final Performing Organization Address [facility] Co de Phone Number [facility] [address] Department [place] [address] * (ABNORMAL) Differential, auto (09/18/2024 8:13 AM FINANCIAL ASSISTANCE SPECIALIST) Neutrophil abs 7.0(H) 1.5 - 6.5 K/cumm Imm gran abs 0.6(H) 0.0 - 0.1 K/cumm [facility] Lymphocyte abs 0.7(L) 0.8 - 3.3 K/cumm [facility] Monocyte abs 1.4(H) 0.2 - 0.8 K/cumm [facility] Eosinophil abs 0.1 0.0 - 0.5 K/cumm [facility] Basophil abs 0.1 0.0 - 0.1 K/cumm [facility] Neutrophil pct 71.8 % [facility] Comment: Interpretive Data Percent cell count reference ranges are not reported, since discordance with absolute values may lead to misinterpretation of CBC data. Current Interpretive Data was last revised on 2017. Imm gran pct 6.0 % [facility] Comment: Interpretive Data Percent cell count reference ranges are not reported, since discordance with absolute values may lead to misinterpretation of CBC data. Current Interpretive Data was last revised on 2017. Lymphocyte pct 6.6 % [facility] Comment: Interpretive Data Percent cell count reference ranges are not reported, since discordance with absolute values may lead to misinterpretation of CBC data. Current Interpretive Data was last revised on 2017. Monocyte pct 14.1 % [facility] Comment: Interpretive Data Percent cell count reference ranges are not reported, since discordance with absolute values may lead to misinterpretation of CBC data. Current Interpretive Data was last revised on 2017. Eosinophil pct 0.9 % [facility] Comment: Interpretive Data Percent cell count reference ranges are not reported, since discordance with absolute values may lead to misinterpretation of CBC data. Current Interpretive Data was last revised on 2017. Basophil pct 0.6 % [facility] Comment: Interpretive Data Percent cell count reference ranges are not reported, since discordance with absolute values may lead to misinterpretation of CBC data. Current Interpretive Data was last revised on 2017. Blood 09/18/2024 8:13 AM FINANCIAL ASSISTANCE SPECIALIST 09/18/2024 8:13 AM FINANCIAL ASSISTANCE SPECIALIST Elida Schumacher iHigh DO LAB BLOOD ORDERABLES F inal Result Performing Organization Address [facility] Co de Phone Number [facility] [address] [facility] [place] [address] * DIC Schistocytes (09/18/2024 8:13 AM FINANCIAL ASSISTANCE SPECIALIST) Schistocytes None Seen None Seen Blood 09/18/2024 8:13 AM FINANCIAL ASSISTANCE SPECIALIST 09/18/2024 8:25 AM FINANCIAL ASSISTANCE SPECIALIST Elida Vigil LAB BLOOD ORDERABLES F inal Result Performing Organization Address [facility] de Phone Number [facility] [address] [facility] [place] [address] * (ABNORMAL) CBC with auto differential (09/18/2024 8:13 AM FINANCIAL ASSISTANCE SPECIALIST) WBC 9.8 3.8 - 9.9 K/cumm Hgb 8.9(L) 11.9 - 15.5 g/dL [facility] Hct 28.7(L) 35.6 - 45.5 % [facility] Plt 147(L) 150 - 400 K/cumm [facility] MPV 13.2(H) 9.1 - 12.3 fL [facility] RBC 3.06(L) 3.90 - 5.20 M/cumm [facility] MCV 93.8 81.3 - 96.4 fL [facility] MCH 29.1 27.1 - 33.3 pg [facility] MCHC 31.0(L) 32.3 - 35.7 g/dL [facility] RDW CV 14.7 11.1 - 14.9 % [facility] RDW SD 50.8(H) 35.7 - 48.1 fL [facility] NRBC abs 0.03(H) 0.00 - 0.01 K/cumm [facility] Blood 09/18/2024 8:13 AM FINANCIAL ASSISTANCE SPECIALIST 09/18/2024 8:20 AM FINANCIAL ASSISTANCE SPECIALIST Elidamartha Vigil DO LAB BLOOD ORDERABLES E dited Result - Final Performing Organization Address [facility] Co de Phone Number [facility] [address] [facility] [place] [address] * (ABNORMAL) POCT glucose (09/18/2024 7:57 AM FINANCIAL ASSISTANCE SPECIALIST) Glucose, POC 271(H) 70 - 199 mg/dL Comment: For Glucose values <35 mg/dl when Hematocrit is >60 mg/dl,the test may not accurately detect significant hypoglycemia,and testing in the Laboratory should be considered if clinically indicated. Blood 09/18/2024 7:57 AM FINANCIAL ASSISTANCE SPECIALIST 09/18/2024 7:57 AM FINANCIAL ASSISTANCE SPECIALIST Elida Vigil DO LAB POCT ORDERABLES - DEVICE Final Result Performing Organization Address [facility] Co de Phone Number [facility] [address] [facility] [place] [address] * (ABNORMAL) POCT glucose (09/18/2024 7:56 AM FINANCIAL ASSISTANCE SPECIALIST) Glucose, POC 240(H) 70 - 199 mg/dL Comment: For Glucose values <35 mg/dl when Hematocrit is >60 mg/dl,the test may not accurately detect significant hypoglycemia,and testing in the Laboratory should be considered if clinically indicated. Blood 09/18/2024 7:56 AM FINANCIAL ASSISTANCE SPECIALIST 09/18/2024 7:56 AM FINANCIAL ASSISTANCE SPECIALIST Elida Vigil DO LAB POCT ORDERABLES - DEVICE Final Result Performing Organization Address City/[facility]/ZIP Co de Phone Number [facility] [address] [facility] [place] [address] * (ABNORMAL) eGFR (09/18/2024 7:26 AM FINANCIAL ASSISTANCE SPECIALIST) eGFR 40(L) >=60 mL/min/1. 73 m2 Comment: [...] last reviewed 2021. Blood 09/18/2024 7:26 AM FINANCIAL ASSISTANCE SPECIALIST 09/18/2024 7:47 AM FINANCIAL ASSISTANCE SPECIALIST Elida Vigil DO LAB BLOOD ORDERABLES F inal Result Performing Organization Address City/[facility]/ZIP Co de Phone Number [facility] [address] [place] [address] * Phosphorus (09/18/2024 7:26 AM FINANCIAL ASSISTANCE SPECIALIST) Pathologist [facility] [facility] Phosphorus, pl 2.9 2.3 - 4.5 mg/dL Comment:Reviewed - dialysis patient Blood 09/18/2024 7:26 AM FINANCIAL ASSISTANCE SPECIALIST 09/18/2024 7:47 AM FINANCIAL ASSISTANCE SPECIALIST Elida Vigil DO LAB BLOOD ORDERABLES F inal Result [facility] [address] [place] [address] * Magnesium (09/18/2024 7:26 AM FINANCIAL ASSISTANCE SPECIALIST) [facility] Magnesium 2.3 1.4 - 2.5 mg/dL Blood 09/18/2024 7:26 AM FINANCIAL ASSISTANCE SPECIALIST 09/18/2024 7:47 AM FINANCIAL ASSISTANCE SPECIALIST Elida Vigil LAB BLOOD ORDERABLES F inal Result Performing Organization Address [facility]/ZIP Co de Phone Number [facility] [address] Department [place] [address] * Vitamin B12 (09/18/2024 7:26 AM FINANCIAL ASSISTANCE SPECIALIST) [facility] Vitamin B12 878 230 - 1,250 pg/mL Blood 09/18/2024 7:26 AM FINANCIAL ASSISTANCE SPECIALIST 09/18/2024 7:47 AM FINANCIAL ASSISTANCE SPECIALIST Elidaflorence Schumacher Musa LAB BLOOD ORDERABLES F inal Result Performing Organization Address [facility] de Phone Number [facility] [address] [place] [address] * (ABNORMAL) Comprehensive metabolic panel (09/18/2024 7:26 AM FINANCIAL ASSISTANCE SPECIALIST) [facility] Sodium 143 135 - 145 mmol/L Potassium, pl 3.4 3.3 - 4.9 mmol/L [facility] Comment:Hemolyzed; potassium value may be falsely elevated by as much as 0.3 - 0.5 mmol/L. Suggest redraw and reanalysis Chloride 111(H) 97 - 110 mmol/L [facility] CO2 19(L) 22 - 32 mmol/L [facility] Anion gap 13 2 - 15 mmol/L [facility] BUN 39(H) 6 - 25 mg/dL [facility] Creatinine 1.57(H) 0.60 - 1.10 mg/dL [facility] Glucose 227(H) 70 - 199 mg/dL [facility] Comment: Interpretive Data Fasting glucose >/= 126 [...] 8.5 - 10.3 mg/dL [facility] Bilirubin, total 0.4 0.1 - 1.2 mg/dL [facility] Protein, pl 5.9(L) 6.5 - 8.5 g/dL [facility] Albumin 2.2(L) 3.5 - 5.0 g/dL [facility] Alk phos 141(H) 40 - 130 Units/L [facility] ALT 18 7 - 45 Units/L [facility] AST 31 10 - 45 Units/L [facility] Comment:Slightly Hemolyzed S pecimen Blood 09/18/2024 7:26 AM FINANCIAL ASSISTANCE SPECIALIST 09/18/2024 7:47 AM FINANCIAL ASSISTANCE SPECIALIST Elida Vigil DO LAB BLOOD ORDERABLES F inal Result [facility] [address] Department [place] [address] * (ABNORMAL) POCT glucose (09/18/2024 4:28 AM FINANCIAL ASSISTANCE SPECIALIST) [facility] Glucose, POC 243(H) 70 - 199 mg/dL Comment: For Glucose values <35 mg/dl when Hematocrit is >60 mg/dl,the test may not accurately detect significant hypoglycemia,and testing in the Laboratory should be considered if clinically indicated. Blood 09/18/2024 4:28 AM FINANCIAL ASSISTANCE SPECIALIST 09/18/2024 4:28 AM FINANCIAL ASSISTANCE SPECIALIST Elida Vigil DO LAB POCT ORDERABLES - DEVICE Final Result Performing Organization Address City/[facility]/ZIP Co de Phone Number [facility] [address] [place] [address] * (ABNORMAL) DIC Coagulation (09/18/2024 4:20 AM FINANCIAL ASSISTANCE SPECIALIST) PT DIC 10.5 10.3 - 13.7 sec INR DIC 0.97 0.90 - 1.20 [facility] PTT DIC 18(L) 28 - 38 sec [facility] Comment: Specimen integrity okay Interpretive Data Heparin therapeutic range: 66.0 - 100.0 seconds. Range based on correlation with therapeutic heparin activity range of 0.3 - 0.7 Units/mL. Current interpretive data was last revised on 2023. D-Dimer 13,588(H) <=499 ng/mL FEU [facility] Comment: Specimen not clotted and filled properly [...] VTE cut-off 680 ng/ml FEU. References; Toby HT et al. Brit Med J. 2013;346:f2492. Shabana et al. Annals Int Med. 2015;163:701-11. Current interpretive data was last revised on 2019. Fibrinogen 775(H) 170 - 400 mg/dL [facility] Blood 09/18/2024 4:20 AM FINANCIAL ASSISTANCE SPECIALIST 09/18/2024 4:21 AM FINANCIAL ASSISTANCE SPECIALIST us Elida Vigil DO LAB BLOOD ORDERABLES F inal Result [facility] [address] [place] [address] * (ABNORMAL) POCT glucose (09/17/2024 11:57 PM FINANCIAL ASSISTANCE SPECIALIST) Glucose, POC 263(H) 70 - 199 mg/dL Comment: For Glucose values <35 mg/dl when Hematocrit is >60 mg/dl,the test may not accurately detect significant hypoglycemia,and testing in the Laboratory should be considered if clinically indicated. Blood 09/17/2024 11:5 7 PM FINANCIAL ASSISTANCE SPECIALIST 09/17/2024 11:57 PM FINANCIAL ASSISTANCE SPECIALIST Elida Vigil DO LAB POCT ORDERABLES - DEVICE Final Result Performing Organization Address [facility] de Phone Number [place] [id number] [facility] [place] [address] * (ABNORMAL) POCT glucose (09/17/2024 8:02 PM FINANCIAL ASSISTANCE SPECIALIST) Glucose, POC 291(H) 70 - 199 mg/dL Comment: For Glucose values <35 mg/dl when Hematocrit is >60 mg/dl,the test may not accurately detect significant hypoglycemia,and testing in the Laboratory should be considered if clinically indicated. Blood 09/17/2024 8:02 PM FINANCIAL ASSISTANCE SPECIALIST 09/17/2024 8:02 PM FINANCIAL ASSISTANCE SPECIALIST Result [facility] Elida Vigil DO [facility] POCT ORDERABLES - DEVICE Final Result Performing Organization Address [facility] de Phone Number [facility] [address] [facility] [place] [address] * (ABNORMAL) POCT glucose (09/17/2024 4:21 PM FINANCIAL ASSISTANCE SPECIALIST) Glucose, POC 283(H) 70 - 199 mg/dL Comment: For Glucose values <35 mg/dl when Hematocrit is >60 mg/dl,the test may not accurately detect significant hypoglycemia,and testing in the Laboratory should be considered if clinically indicated. Blood 09/17/2024 4:21 PM FINANCIAL ASSISTANCE SPECIALIST 09/17/2024 4:21 PM FINANCIAL ASSISTANCE SPECIALIST Elida Vigil DO LAB POCT ORDERABLES - DEVICE Final Result Performing Organization Address [facility]/ZIP Co de Phone Number [facility] [address] [place] [address] * (ABNORMAL) eGFR (09/17/2024 2:52 PM FINANCIAL ASSISTANCE SPECIALIST) Pathologist [facility] eGFR 34(L) >=60 mL/min/1. 73 m2 Comment: [...] last reviewed 2021. Blood 09/17/2024 2:52 PM FINANCIAL ASSISTANCE SPECIALIST 09/17/2024 2:57 PM FINANCIAL ASSISTANCE SPECIALIST Elida Vigil DO LAB BLOOD ORDERABLES F inal Result Performing Organization Address [facility]/ZIP Co de Phone Number [facility] [address] Department [place] [address] * (ABNORMAL) Renal function panel (09/17/2024 2:52 PM FINANCIAL ASSISTANCE SPECIALIST) [facility] Sodium 143 135 - 145 mmol/L Potassium, pl 3.6 3.3 - 4.9 mmol/L [facility] Chloride 110 97 - 110 mmol/L [facility] CO2 21(L) 22 - 32 mmol/L [facility] Anion gap 12 2 - 15 mmol/L [facility] BUN 41(H) 6 - 25 mg/dL [facility] Creatinine 1.82(H) 0.60 - 1.10 mg/dL [facility] Glucose 290(H) 70 - 199 mg/dL [facility] Comment: Interpretive Data Fasting glucose >/= 126 [...] 8.5 - 10.3 mg/dL [facility] Phosphorus, pl 5.0(H) 2.3 - 4.5 mg/dL [facility] Comment:Reviewed Albumin 2.4(L) 3.5 - 5.0 g/dL [facility] Blood 09/17/2024 2:52 PM FINANCIAL ASSISTANCE SPECIALIST 09/17/2024 2:57 PM FINANCIAL ASSISTANCE SPECIALIST Elida Vigil DO LAB BLOOD ORDERABLES F inal Result [facility] [address] Department [place] [address] * (ABNORMAL) POCT glucose (09/17/2024 12:23 PM FINANCIAL ASSISTANCE SPECIALIST) Glucose, POC 278(H) 70 - 199 mg/dL Comment: For Glucose values <35 mg/dl when Hematocrit is >60 mg/dl,the test may not accurately detect significant hypoglycemia,and testing in the Laboratory should be considered if clinically indicated. Blood 09/17/2024 12:2 3 PM FINANCIAL ASSISTANCE SPECIALIST 09/17/2024 12:23 PM FINANCIAL ASSISTANCE SPECIALIST us Elida Vigil DO LAB POCT ORDERABLES - DEVICE Final Result Performing Organization Address [facility] Co de Phone Number [facility] [address] [facility] [place] [address] * (ABNORMAL) POCT glucose (09/17/2024 7:09 AM FINANCIAL ASSISTANCE SPECIALIST) Glucose, POC 294(H) 70 - 199 mg/dL Comment: For Glucose values <35 mg/dl when Hematocrit is >60 mg/dl,the test may not accurately detect significant hypoglycemia,and testing in the Laboratory should be considered if clinically indicated. Blood 09/17/2024 7:09 AM FINANCIAL ASSISTANCE SPECIALIST 09/17/2024 7:09 AM FINANCIAL ASSISTANCE SPECIALIST Elida Vigil DO LAB POCT ORDERABLES - DEVICE Final Result Performing Organization Address [facility] de Phone Number [facility] [address] [facility] [place] [address] * (ABNORMAL) POCT glucose (09/17/2024 4:42 AM FINANCIAL ASSISTANCE SPECIALIST) Glucose, POC 300(H) 70 - 199 mg/dL Comment: For Glucose values <35 mg/dl when Hematocrit is >60 mg/dl,the test may not accurately detect significant hypoglycemia,and testing in the Laboratory should be considered if clinically indicated. Blood 09/17/2024 4:42 AM FINANCIAL ASSISTANCE SPECIALIST 09/17/2024 4:42 AM FINANCIAL ASSISTANCE SPECIALIST Elida Vigil DO LAB POCT ORDERABLES - DEVICE Final Result Performing Organization Address [facility] Co de Phone Number [facility] [address] [facility] [place] [address] * (ABNORMAL) eGFR (09/17/2024 4:10 AM FINANCIAL ASSISTANCE SPECIALIST) eGFR 36(L) >=60 mL/min/1. 73 m2 Comment: [...] last reviewed 2021. Blood 09/17/2024 4:10 AM FINANCIAL ASSISTANCE SPECIALIST 09/17/2024 4:10 AM FINANCIAL ASSISTANCE SPECIALIST Elida Vigil DO LAB BLOOD ORDERABLES F inal Result Performing Organization Address City/[facility]/ZIP Co de Phone Number [facility] [address] Department of [facility] [place], [place] [id number] * Thyroid Function [place] (09/17/2024 4:10 AM FINANCIAL ASSISTANCE SPECIALIST) Pathologist [facility] TSH 1.79 0.30 - 4.20 mcIUnit/mL Blood 09/17/2024 4:10 AM FINANCIAL ASSISTANCE SPECIALIST 09/17/2024 4:10 AM FINANCIAL ASSISTANCE SPECIALIST Elida Vigil LAB BLOOD ORDERABLES F inal Result Performing Organization Address [facility] Co de Phone Number [facility] [address] Department [place] [address] * (ABNORMAL) CBC with auto differential (09/17/2024 4:10 AM FINANCIAL ASSISTANCE SPECIALIST) [facility] WBC 7.1 3.8 - 9.9 K/cumm Hgb 8.7(L) 11.9 - 15.5 g/dL [facility] Hct 27.4(L) 35.6 - 45.5 % [facility] Plt 93(L) 150 - 400 K/cumm [facility] MPV 12.8(H) 9.1 - 12.3 fL [facility] RBC 3.03(L) 3.90 - 5.20 M/cumm [facility] MCV 90.4 81.3 - 96.4 fL [facility] MCH 28.7 27.1 - 33.3 pg [facility] MCHC 31.8(L) 32.3 - 35.7 g/dL [facility] RDW CV 14.6 11.1 - 14.9 % [facility] RDW SD 48.9(H) 35.7 - 48.1 fL [facility] NRBC abs 0.00 0.00 - 0.01 K/cumm [facility] Blood 09/17/2024 4:10 AM FINANCIAL ASSISTANCE SPECIALIST 09/17/2024 4:10 AM FINANCIAL ASSISTANCE SPECIALIST us Elida Vigil DO LAB BLOOD ORDERABLES F inal Result [facility] [address] Department [place] [address] * (ABNORMAL) Manual Differential (09/17/2024 4:10 AM FINANCIAL ASSISTANCE SPECIALIST) Differential Manual Cells Counted 120 [facility] Neutrophil abs 5.9 1.5 - 6.5 K/cumm [facility] Imm gran abs 0.2(H) 0.0 - 0.1 K/cumm [facility] Lymphocyte abs 0.6(L) 0.8 - 3.3 K/cumm [facility] Monocyte abs 0.4 0.2 - 0.8 K/cumm [facility] Eosinophil abs 0.1 0.0 - 0.5 K/cumm [facility] Basophil abs 0.1 0.0 - 0.1 K/cumm [facility] Neutrophil pct 82.6 % [facility] Comment: Interpretive Data Percent cell count reference ranges are not reported, since discordance with absolute values may lead to misinterpretation of CBC data. Current Interpretive Data was last revised on 2017. Lymphocyte pct 8.3 % [facility] Comment: Interpretive Data Percent cell count reference ranges are not reported, since discordance with absolute values may lead to misinterpretation of CBC data. Current Interpretive Data was last revised on 2017. Monocyte pct 5.0 % [facility] Comment: Interpretive Data Percent cell count reference ranges are not reported, since discordance with absolute values may lead to misinterpretation of CBC data. Current Interpretive Data was last revised on 2017. Eosinophil pct 0.8 % [facility] Comment: Interpretive Data Percent cell count reference ranges are not reported, since discordance with absolute values may lead to misinterpretation of CBC data. Current Interpretive Data was last revised on 2017. Basophil pct 0.8 % [facility] Comment: Interpretive Data Percent cell count reference ranges are not reported, since discordance with absolute values may lead to misinterpretation of CBC data. Current Interpretive Data was last revised on 2017. Myelocyte pct 0.8(H) 0.0 - 0.0 % [facility] Promyelocyte pct 1.7(H) 0.0 - 0.0 % [facility] RBC morphology Present(A) [facility] Anisocytosis Slight(A) [facility] Morphology scrn See Comment [facility] Comment:PLT: Platelet morpho logy normal Blood 09/17/2024 4:10 AM FINANCIAL ASSISTANCE SPECIALIST 09/17/2024 4:10 AM FINANCIAL ASSISTANCE SPECIALIST Elida Vigil DO LAB BLOOD ORDERABLES F inal Result [facility] [address] Department of Laboratories [place], [place] [id number] * (ABNORMAL) Phosphorus (09/17/2024 4:10 AM FINANCIAL ASSISTANCE SPECIALIST) Phosphorus, pl 2.2(L) 2.3 - 4.5 mg/dL Blood 09/17/2024 4:10 AM FINANCIAL ASSISTANCE SPECIALIST 09/17/2024 4:10 AM FINANCIAL ASSISTANCE SPECIALIST Elida Vigil DO LAB BLOOD ORDERABLES F inal Result Performing Organization Address City/[facility]/ZIP Co de Phone Number [facility] [address] [facility] [place] [address] * Magnesium (09/17/2024 4:10 AM FINANCIAL ASSISTANCE SPECIALIST) [facility] Magnesium 2.3 1.4 - 2.5 mg/dL Blood 09/17/2024 4:10 AM FINANCIAL ASSISTANCE SPECIALIST 09/17/2024 4:10 AM FINANCIAL ASSISTANCE SPECIALIST Elida Vigil DO LAB BLOOD ORDERABLES F inal Result Performing Organization Address [facility] Co de Phone Number [facility] [address] [facility] [place] [address] * (ABNORMAL) Haptoglobin (09/17/2024 4:10 AM FINANCIAL ASSISTANCE SPECIALIST) [facility] Haptoglobin 408(H) 30 - 200 mg/dL Blood 09/17/2024 4:10 AM FINANCIAL ASSISTANCE SPECIALIST 09/17/2024 4:10 AM FINANCIAL ASSISTANCE SPECIALIST Elida Vigil LAB BLOOD ORDERABLES F inal Result Performing Organization Address [facility] Co de Phone Number [facility] [address] [facility] [place] [address] * (ABNORMAL) Comprehensive metabolic panel (09/17/2024 4:10 AM FINANCIAL ASSISTANCE SPECIALIST) [facility] Sodium 143 135 - 145 mmol/L Potassium, pl 2.8(L) 3.3 - 4.9 mmol/L [facility] Chloride 109 97 - 110 mmol/L [facility] CO2 21(L) 22 - 32 mmol/L [facility] Anion gap 13 2 - 15 mmol/L [facility] BUN 43(H) 6 - 25 mg/dL [facility] Creatinine 1.71(H) 0.60 - 1.10 mg/dL [facility] Glucose 288(H) 70 - 199 mg/dL [facility] Comment: Interpretive Data Fasting glucose >/= 126 [...] 8.5 - 10.3 mg/dL [facility] Bilirubin, total 0.3 0.1 - 1.2 mg/dL [facility] Protein, pl 5.5(L) 6.5 - 8.5 g/dL [facility] Albumin 2.2(L) 3.5 - 5.0 g/dL [facility] Alk phos 115 40 - 130 Units/L [facility] ALT 18 7 - 45 Units/L [facility] AST 23 10 - 45 Units/L [facility] Blood 09/17/2024 4:10 AM FINANCIAL ASSISTANCE SPECIALIST 09/17/2024 4:10 AM FINANCIAL ASSISTANCE SPECIALIST us Elida Vigil DO LAB BLOOD ORDERABLES F inal Result [facility] [address] Department [place] [address] * XR Chest 1 View (09/17/2024 2:59 AM FINANCIAL ASSISTANCE SPECIALIST) Anatomical Region Laterality Modality Body, Chest N/A Computed Radiogr aphy 09/17/2024 7:00 AM FINANCIAL ASSISTANCE SPECIALIST Impressions 09/17/2024 7:00 AM FINANCIAL ASSISTANCE SPECIALIST Comparison chest radiograph 09/16/2024. Endotracheal tube terminates 4 cm above the jessenia. Gastric tube courses along the esophagus and terminates below the diaphragm outside the [id number]. Small lung volumes. Similar-appearing patchy airspace opacity in left lower lung which may represent a pneumonia. Right lung is clear. No pleural effusion or pneumothorax. Heart size and mediastinal contours are stable. Electronically signed by: Teja Angeles MD, PHD Narrative 09/17/2024 7:00 AM FINANCIAL ASSISTANCE SPECIALIST EXAMINATION: XR CHEST 1 VIEW Procedure Note Teja Angeles MD PhD - 09/17/2024 EXAMINATION: XR CHEST 1 VIEW IMPRESSION: Comparison chest radiograph 09/16/2024. Endotracheal tube terminates 4 cm above the jessenia. Gastric tube courses along the esophagus and terminates below the diaphragm outside the [id number]. Small lung volumes. Similar-appearing patchy airspace opacity in left lower lung which may represent a pneumonia. Right lung is clear. No pleural effusion or pneumothorax. Heart size and mediastinal contours are stable. Electronically signed by: Teja Angeles MD, PHD Elida Vigil DO IMG XR PROCEDURES Salma l Result * (ABNORMAL) POCT glucose (09/16/2024 11:48 PM FINANCIAL ASSISTANCE SPECIALIST) Glucose, POC 288(H) 70 - 199 mg/dL Comment: For Glucose values <35 mg/dl when Hematocrit is >60 mg/dl,the test may not accurately detect significant hypoglycemia,and testing in the Laboratory should be considered if clinically indicated. Blood 09/16/2024 11:4 8 PM FINANCIAL ASSISTANCE SPECIALIST 09/16/2024 11:48 PM FINANCIAL ASSISTANCE SPECIALIST Elida Vigil DO LAB POCT ORDERABLES - DEVICE Final Result [facility] [address] Department [place] [address] * (ABNORMAL) POCT glucose (09/16/2024 8:12 PM FINANCIAL ASSISTANCE SPECIALIST) Glucose, POC 265(H) 70 - 199 mg/dL Comment: For Glucose values <35 mg/dl when Hematocrit is >60 mg/dl,the test may not accurately detect significant hypoglycemia,and testing in the Laboratory should be considered if clinically indicated. Blood 09/16/2024 8:12 PM FINANCIAL ASSISTANCE SPECIALIST 09/16/2024 8:12 PM FINANCIAL ASSISTANCE SPECIALIST Elida Verahenok DO LAB POCT ORDERABLES - DEVICE Final Result Performing Organization Address [facility] Co de Phone Number [facility] [address] [facility] [place] [address] * (ABNORMAL) POCT glucose (09/16/2024 4:04 PM FINANCIAL ASSISTANCE SPECIALIST) Glucose, POC 310(H) 70 - 199 mg/dL Comment: For Glucose values <35 mg/dl when Hematocrit is >60 mg/dl,the test may not accurately detect significant hypoglycemia,and testing in the Laboratory should be considered if clinically indicated. Blood 09/16/2024 4:04 PM FINANCIAL ASSISTANCE SPECIALIST 09/16/2024 4:04 PM FINANCIAL ASSISTANCE SPECIALIST Elida Winsome Vigil [facility] POCT ORDERABLES - DEVICE Final Result Performing Organization Address [facility] de Phone Number [facility] [address] [facility] [place] [address] * (ABNORMAL) POCT glucose (09/16/2024 12:27 PM FINANCIAL ASSISTANCE SPECIALIST) Glucose, POC 271(H) 70 - 199 mg/dL Comment: For Glucose values <35 mg/dl when Hematocrit is >60 mg/dl,the test may not accurately detect significant hypoglycemia,and testing in the Laboratory should be considered if clinically indicated. Blood 09/16/2024 12:2 7 PM FINANCIAL ASSISTANCE SPECIALIST 09/16/2024 12:27 PM FINANCIAL ASSISTANCE SPECIALIST Elida Winsome Chuyhenok [facility] POCT ORDERABLES - DEVICE Final Result Performing Organization Address [facility] Co de Phone Number [facility] [address] [place] [address] * US Vein Duplex Lower Extremity Bilateral Complete (09/16/2024 11:24 AM FINANCIAL ASSISTANCE SPECIALIST) Anatomical Region Laterality Modality Vascular Bilateral Ultrasound 09/16/2024 3:48 PM FINANCIAL ASSISTANCE SPECIALIST Impressions 09/16/2024 3:48 PM FINANCIAL ASSISTANCE SPECIALIST 1. This study does not demonstrate evidence of deep vein thrombosis in the right lower extremity. None 2. This study does not demonstrate evidence of deep vein thrombosis in the left lower extremity. None 3. Note: Small isolated thrombi may be difficult to visualize, especially in the calf veins. Electronically signed by: Kwaku Tolentino M.D. Narrative 09/16/2024 3:48 PM FINANCIAL ASSISTANCE SPECIALIST Lower Extremity Vein Duplex Bilateral DATE: 09/16/2024 [...] veins. Electronically signed by: Kwaku Tolentino M.D. us Flo Villagran MD IMG US PROCEDURES Final Resu lt * [place] INSJ NON-TUNNELED CENTRAL VENOUS CATH AGE 5 YR/> (09/16/2024 8:53 AM FINANCIAL ASSISTANCE SPECIALIST) Narrative Hugh Shanks PA - 09/16/2024 8:53 AM FINANCIAL ASSISTANCE SPECIALIST Hugh Shanks PA 09/16/2024 8:54 AM Midline Date/Time: 09/16/2024 8:53 AM Performed by: Hugh Shanks PA Authorized by: Hugh Shanks PA [place] Protocol: RN Notified of Procedure: yes Informed consent: Risks, benefits, alternatives discussed and patient/pharmaceutical representative/guardian agrees and accepts Patient's stated name/ [...] * Blood culture Blood (09/16/2024 8:53 AM FINANCIAL ASSISTANCE SPECIALIST) Report Final Report: No growth Blood 09/16/2024 8:53 AM FINANCIAL ASSISTANCE SPECIALIST 09/16/2024 8:56 AM FINANCIAL ASSISTANCE SPECIALIST Narrative [facility] 09/21/2024 1:01 PM FINANCIAL ASSISTANCE SPECIALIST From a different site than #1. Interpretive [...] organism identification may be performed using the sougou Blood Culture Identification panel. This assay detects microbial DNA in a blood culture broth. This assay has been cleared by the [place] Food and Drug Administration and its performance characteristics have been verified by the [facility]. Interpretive data was last revised on September 11, 2022. Elida Vigil DO LAB MICROBIOLOGY - GEN ERAL ORDERABLES Final Result [facility] [address] Department [place] [address] * Blood culture Blood (09/16/2024 8:45 AM FINANCIAL ASSISTANCE SPECIALIST) Report Final Report: No growth Blood 09/16/2024 8:45 AM FINANCIAL ASSISTANCE SPECIALIST 09/16/2024 8:56 AM FINANCIAL ASSISTANCE SPECIALIST Narrative [facility] - 09/21/2024 1:01 PM FINANCIAL ASSISTANCE SPECIALIST Interpretive Data 1. Blood cultures are incubated and monitored continuously for 5 days (120 hours). The first negative report is issued within 24 hours of receipt in the laboratory. 2. All positive cultures are resulted and called to physicians/care providers as soon as they are detected. 3. A rapid molecular test for organism identification may be performed using the sougou Blood Culture Identification panel. This assay detects microbial DNA in a blood culture broth. This assay has been cleared by the [place] Food and Drug Administration and its performance characteristics have been verified by the [facility]. Interpretive data was last revised on September 11, 2022. Elida Vigil DO LAB MICROBIOLOGY - GEN ERAL ORDERABLES Final Result Performing Organization Address City/[facility]/ZIP Co de Phone Number [facility] [address] Department of Laboratories [place], [place] [id number] * (ABNORMAL) POCT glucose (09/16/2024 7:33 AM FINANCIAL ASSISTANCE SPECIALIST) [facility] Glucose, POC 232(H) 70 - 199 mg/dL Comment: For Glucose values <35 mg/dl when Hematocrit is >60 mg/dl,the test may not accurately detect significant hypoglycemia,and testing in the Laboratory should be considered if clinically indicated. Blood 09/16/2024 7:33 AM FINANCIAL ASSISTANCE SPECIALIST 09/16/2024 7:33 AM FINANCIAL ASSISTANCE SPECIALIST Flo Villagran MD LAB POCT ORDERABLES - DEVICE Final Result [facility] [address] Department [place] [address] * (ABNORMAL) CBC with auto differential (09/16/2024 5:30 AM FINANCIAL ASSISTANCE SPECIALIST) [facility] WBC 5.4 3.8 - 9.9 K/cumm Hgb 8.6(L) 11.9 - 15.5 g/dL [facility] Hct 28.2(L) 35.6 - 45.5 % [facility] Plt 81(L) 150 - 400 K/cumm [facility] MPV 13.9(H) 9.1 - 12.3 fL [facility] RBC 3.01(L) 3.90 - 5.20 M/cumm [facility] MCV 93.7 81.3 - 96.4 fL [facility] MCH 28.6 27.1 - 33.3 pg [facility] MCHC 30.5(L) 32.3 - 35.7 g/dL [facility] RDW CV 14.9 11.1 - 14.9 % [facility] RDW SD 51.3(H) 35.7 - 48.1 fL [facility] NRBC abs 0.00 0.00 - 0.01 K/cumm [facility] Blood 09/16/2024 5:30 AM FINANCIAL ASSISTANCE SPECIALIST 09/16/2024 5:39 AM FINANCIAL ASSISTANCE SPECIALIST Flo Villagran MD LAB BLOOD ORDERABLES Final R esult [facility] [address] Department [place] [address] * (ABNORMAL) Manual Differential (09/16/2024 5:30 AM FINANCIAL ASSISTANCE SPECIALIST) Differential Manual Cells Counted 116 [facility] Neutrophil abs 4.4 1.5 - 6.5 K/cumm [facility] Imm gran abs 0.0 0.0 - 0.1 K/cumm [facility] Lymphocyte abs 0.6(L) 0.8 - 3.3 K/cumm [facility] Monocyte abs 0.3 0.2 - 0.8 K/cumm [facility] Eosinophil abs 0.0 0.0 - 0.5 K/cumm [facility] Neutrophil pct 81.0 % [facility] Comment: Interpretive Data Percent cell count reference ranges are not reported, since discordance with absolute values may lead to misinterpretation of CBC data. Current Interpretive Data was last revised on 2017. Lymphocyte pct 12.1 % [facility] Comment: Interpretive Data Percent cell count reference ranges are not reported, since discordance with absolute values may lead to misinterpretation of CBC data. Current Interpretive Data was last revised on 2017. Monocyte pct 6.0 % [facility] Comment: Interpretive Data Percent cell count reference ranges are not reported, since discordance with absolute values may lead to misinterpretation of CBC data. Current Interpretive Data was last revised on 2017. Eosinophil pct 0.9 % [facility] Comment: Interpretive Data Percent cell count reference ranges are not reported, since discordance with absolute values may lead to misinterpretation of CBC data. Current Interpretive Data was last revised on 2017. RBC morphology Present(A) [facility] Hypochromasia 3-7/HPF(A) [facility] Anisocytosis Slight(A) [facility] Microcytes 3-7/HPF(A) [facility] Morphology scrn See Comment [facility] Comment:PLT: Giant platelets present Blood 09/16/2024 5:30 AM FINANCIAL ASSISTANCE SPECIALIST 09/16/2024 5:39 AM FINANCIAL ASSISTANCE SPECIALIST us Flo Villagran MD LAB BLOOD ORDERABLES Final R esult Performing Organization Address [facility] Co de Phone Number [facility] [address] [place] [address] * POCT glucose (09/16/2024 5:23 AM FINANCIAL ASSISTANCE SPECIALIST) [facility] Glucose, POC 178 70 - 199 mg/dL Comment: For Glucose values <35 mg/dl when Hematocrit is >60 mg/dl,the test may not accurately detect significant hypoglycemia,and testing in the Laboratory should be considered if clinically indicated. Blood 09/16/2024 5:23 AM FINANCIAL ASSISTANCE SPECIALIST 09/16/2024 5:23 AM FINANCIAL ASSISTANCE SPECIALIST Flo Villagran MD LAB POCT ORDERABLES - DEVICE Final Result Performing Organization Address [facility] Co de Phone Number [facility] [address] [place] [address] * X-ray chest 1 view (09/16/2024 4:37 AM FINANCIAL ASSISTANCE SPECIALIST) Anatomical Region Laterality Modality Body, Chest N/A Computed Radiogr aphy 09/16/2024 7:29 AM FINANCIAL ASSISTANCE SPECIALIST Impressions 09/16/2024 7:29 AM FINANCIAL ASSISTANCE SPECIALIST Endotracheal tube with tip approximately 3.6 cm superior to jessenia. Gastric tube extends inferior to the [id number] the study, below the GE junction. There are heterogeneous left mid lung and bibasilar lung opacities appear not significantly changed from prior. There is no pneumothorax or definite pleural effusion. Heart and mediastinum are unchanged. Electronically signed by: Abeba Castellano M.D. Narrative 09/16/2024 7:29 AM FINANCIAL ASSISTANCE SPECIALIST EXAMINATION: 1 view chest radiograph COMPARISON: 09/15/2024 INDICATION: ET Tube For endotracheal tube position Procedure Note Abeba Castellano MD - 09/16/2024 EXAMINATION: 1 view chest radiograph COMPARISON: 09/15/2024 INDICATION: ET Tube For endotracheal tube position IMPRESSION: Endotracheal tube with tip approximately 3.6 cm superior to jessenia. Gastric tube extends inferior to the wskby-ml-[id number] the study, below the GE junction. There are heterogeneous left mid lung and bibasilar lung opacities appear not significantly changed from prior. There is no pneumothorax or definite pleural effusion. Heart and mediastinum are unchanged. Electronically signed by: Abeba Castellano M.D. Flo Villagran MD IMG XR PROCEDURES Final Resu lt * (ABNORMAL) eGFR (09/16/2024 4:05 AM FINANCIAL ASSISTANCE SPECIALIST) eGFR 33(L) >=60 mL/min/1. 73 m2 Comment: [...] last reviewed 2021. Blood 09/16/2024 4:05 AM FINANCIAL ASSISTANCE SPECIALIST 09/16/2024 4:12 AM FINANCIAL ASSISTANCE SPECIALIST Flo Villagran MD LAB BLOOD ORDERABLES Final R esult Performing Organization Address [facility] Co de Phone Number [facility] [address] [place] [address] * Blood culture Blood (09/16/2024 4:05 AM FINANCIAL ASSISTANCE SPECIALIST) Report Final Report: No growth Blood 09/16/2024 4:05 AM FINANCIAL ASSISTANCE SPECIALIST 09/16/2024 4:38 AM FINANCIAL ASSISTANCE SPECIALIST Narrative [facility] - 09/21/2024 7:01 AM FINANCIAL ASSISTANCE SPECIALIST Interpretive Data 1. Blood cultures are incubated and monitored continuously for 5 days (120 hours). The first negative report is issued within 24 hours of receipt in the laboratory. 2. All positive cultures are resulted and called to physicians/care providers as soon as they are detected. 3. A rapid molecular test for organism identification may be performed using the sougou Blood Culture Identification panel. This assay detects microbial DNA in a blood culture broth. This assay has been cleared by the [place] Food and Drug Administration and its performance characteristics have been verified by the [facility]. Interpretive data was last revised on September 11, 2022. Flo Villagran MD LAB MICROBIOLOGY - GENERAL O RDERABLES Final Result Performing Organization Address [facility] Co de Phone Number [facility] [address] Department of [facility] [place], [place] [id number] * (ABNORMAL) Triglycerides (09/16/2024 4:05 AM FINANCIAL ASSISTANCE SPECIALIST) Triglycerides 876(H) <=149 mg/dL Comment: Interpretive Data [...] revised on 2018. Blood 09/16/2024 4:05 AM FINANCIAL ASSISTANCE SPECIALIST 09/16/2024 4:05 AM FINANCIAL ASSISTANCE SPECIALIST Flo Villagran MD LAB BLOOD ORDERABLES Final R esult Performing Organization Address [facility] Co de Phone Number [facility] [address] [place] [address] * Magnesium (09/16/2024 4:05 AM FINANCIAL ASSISTANCE SPECIALIST) [facility] Magnesium 2.2 1.4 - 2.5 mg/dL Blood 09/16/2024 4:05 AM FINANCIAL ASSISTANCE SPECIALIST 09/16/2024 4:12 AM FINANCIAL ASSISTANCE SPECIALIST Flo Villagran MD LAB BLOOD ORDERABLES Final R esult Performing Organization Address [facility] Co de Phone Number [facility] [address] [place] [place] [address] * (ABNORMAL) Renal function panel (09/16/2024 4:05 AM FINANCIAL ASSISTANCE SPECIALIST) [facility] Sodium 139 135 - 145 mmol/L Potassium, pl 3.3 3.3 - 4.9 mmol/L [facility] Chloride 107 97 - 110 mmol/L [facility] CO2 19(L) 22 - 32 mmol/L [facility] Anion gap 13 2 - 15 mmol/L [facility] BUN 47(H) 6 - 25 mg/dL [facility] Creatinine 1.85(H) 0.60 - 1.10 mg/dL [facility] Glucose 137 70 - 199 mg/dL [facility] Comment: Interpretive Data Fasting glucose >/= 126 [...] 8.5 - 10.3 mg/dL [facility] Phosphorus, pl 2.8 2.3 - 4.5 mg/dL [facility] Albumin 2.0(L) 3.5 - 5.0 g/dL [facility] Blood 09/16/2024 4:05 AM FINANCIAL ASSISTANCE SPECIALIST 09/16/2024 4:12 AM FINANCIAL ASSISTANCE SPECIALIST Flo Villagran MD LAB BLOOD ORDERABLES Final R esult [facility] [address] Department [place] [address] * POCT glucose (09/16/2024 3:45 AM FINANCIAL ASSISTANCE SPECIALIST) [facility] Signature Glucose, POC 137 70 - 199 mg/dL Comment: For Glucose values <35 mg/dl when Hematocrit is >60 mg/dl,the test may not accurately detect significant hypoglycemia,and testing in the Laboratory should be considered if clinically indicated. Blood 09/16/2024 3:45 AM FINANCIAL ASSISTANCE SPECIALIST 09/16/2024 3:45 AM FINANCIAL ASSISTANCE SPECIALIST Flo Villagran MD LAB POCT ORDERABLES - DEVICE Final Result [facility] [address] Department [place] [address] * MRI Brain WO Contrast (09/16/2024 1:48 AM FINANCIAL ASSISTANCE SPECIALIST) Anatomical Region Laterality Modality Head and Neck N/A Magnetic Resonan ce 09/15/2024 10:4 0 PM FINANCIAL ASSISTANCE SPECIALIST Impressions 09/16/2024 12:11 PM FINANCIAL ASSISTANCE SPECIALIST No acute intracranial abnormality seen given motion limitations. For the purposes of quality facilitator, this study was initially interpreted by teleradiology. There is no significant discrepancy. Dictated by: Hugh Zelaya M.D. The radiology attending physician has personally reviewed this study, and had reviewed and/or edited this written report and agrees with it. Electronically signed by: Matthew Alonso MD, PHD Narrative 09/16/2024 12:11 PM FINANCIAL ASSISTANCE SPECIALIST EXAMINATION: Magnetic resonance imaging (MRI) of the [...] motion limitations. For the purposes of quality facilitator, this study was initially interpreted by teleradiology. There is no significant discrepancy. Dictated by: Hugh Zelaya M.D. The radiology attending physician has personally reviewed this study, and had reviewed and/or edited this written report and agrees with it. Electronically signed by: Matthew Alonso MD, PHD Flo Villagran MD IMG MRI PROCEDURES Final Res ult * POCT glucose (09/16/2024 1:06 AM FINANCIAL ASSISTANCE SPECIALIST) [facility] Signature Glucose, POC 156 70 - 199 mg/dL Comment: For Glucose values <35 mg/dl when Hematocrit is >60 mg/dl,the test may not accurately detect significant hypoglycemia,and testing in the Laboratory should be considered if clinically indicated. Blood 09/16/2024 1:06 AM FINANCIAL ASSISTANCE SPECIALIST 09/16/2024 1:06 AM FINANCIAL ASSISTANCE SPECIALIST Flo Villagran MD LAB POCT ORDERABLES - DEVICE Final Result [facility] [address] [place] [address] * POCT glucose (09/16/2024 12:01 AM FINANCIAL ASSISTANCE SPECIALIST) Glucose, POC 155 70 - 199 mg/dL Comment: For Glucose values <35 mg/dl when Hematocrit is >60 mg/dl,the test may not accurately detect significant hypoglycemia,and testing in the Laboratory should be considered if clinically indicated. Blood 09/16/2024 12:0 1 AM FINANCIAL ASSISTANCE SPECIALIST 09/16/2024 12:01 AM FINANCIAL ASSISTANCE SPECIALIST Flo Villagran MD LAB POCT ORDERABLES - DEVICE Final Result Performing Organization Address [facility] de Phone Number [facility] [address] [facility] [place] [address] * POCT glucose (09/15/2024 9:09 PM FINANCIAL ASSISTANCE SPECIALIST) Glucose, POC 166 70 - 199 mg/dL Comment: For Glucose values <35 mg/dl when Hematocrit is >60 mg/dl,the test may not accurately detect significant hypoglycemia,and testing in the Laboratory should be considered if clinically indicated. Blood 09/15/2024 9:09 PM FINANCIAL ASSISTANCE SPECIALIST 09/15/2024 9:09 PM FINANCIAL ASSISTANCE SPECIALIST Flo Villagran MD LAB POCT ORDERABLES - DEVICE Final Result Performing Organization Address [facility] de Phone Number [facility] [address] [facility] [place] [address] * POCT glucose (09/15/2024 7:41 PM FINANCIAL ASSISTANCE SPECIALIST) Glucose, POC 140 70 - 199 mg/dL Comment: For Glucose values <35 mg/dl when Hematocrit is >60 mg/dl,the test may not accurately detect significant hypoglycemia,and testing in the Laboratory should be considered if clinically indicated. Blood 09/15/2024 7:41 PM FINANCIAL ASSISTANCE SPECIALIST 09/15/2024 7:41 PM FINANCIAL ASSISTANCE SPECIALIST Flo Villagrna MD LAB POCT ORDERABLES - DEVICE Final Result Performing Organization Address [facility] de Phone Number [facility] [address] [place] [address] * POCT glucose (09/15/2024 5:12 PM FINANCIAL ASSISTANCE SPECIALIST) Glucose, POC 140 70 - 199 mg/dL Comment: For Glucose values <35 mg/dl when Hematocrit is >60 mg/dl,the test may not accurately detect significant hypoglycemia,and testing in the Laboratory should be considered if clinically indicated. Blood 09/15/2024 5:12 PM FINANCIAL ASSISTANCE SPECIALIST 09/15/2024 5:12 PM FINANCIAL ASSISTANCE SPECIALIST Flo Villagran MD LAB POCT ORDERABLES - DEVICE Final Result Performing Organization Address [facility] de Phone Number [facility] [address] [place] [address] * POCT glucose (09/15/2024 3:05 PM FINANCIAL ASSISTANCE SPECIALIST) [facility] Glucose, POC 117 70 - 199 mg/dL Comment: For Glucose values <35 mg/dl when Hematocrit is >60 mg/dl,the test may not accurately detect significant hypoglycemia,and testing in the Laboratory should be considered if clinically indicated. Blood 09/15/2024 3:05 PM FINANCIAL ASSISTANCE SPECIALIST 09/15/2024 3:05 PM FINANCIAL ASSISTANCE SPECIALIST Flo Villagran MD LAB POCT ORDERABLES - DEVICE Final Result Performing Organization Address [facility] de Phone Number [facility] [address] [place] [address] * (ABNORMAL) Aerobic culture and gram stain Sputum Sputum (09/15/2024 1:57 PM FINANCIAL ASSISTANCE SPECIALIST) [facility] Direct Specimen Exam Stain: Moderate polymorphonuclear leukocytes seen. Many Gram Positive Cocci Report Final Report: Heavy growth of: Staphylococcus aureus, methicillin susceptible Light growth normal sukhdev (.) [facility] Organism STAPHYLOCOCCUS AUREUS, METHICILLIN SUSCEPTIBLE [facility] Sputum (Sputum) 09/15/2024 1 :57 PM FINANCIAL ASSISTANCE SPECIALIST 09/15/2024 2:10 PM FINANCIAL ASSISTANCE SPECIALIST Narrative Organism Antibiotic Method Susceptibility Staphylococcus aureus, [...] MICROBIOLOGY - GENERAL O RDERABLES Final Result [facility] [address] Department [place] [address] * TRANSESOPHAGEAL ECHO (DEMI) W DOPPLER/CF WO CONTRAST (09/15/2024 1:43 PM FINANCIAL ASSISTANCE SPECIALIST) LV EF 55-60 % CONS SCIMAGE Anatomical Region Laterality Modality Ultrasound 09/15/2024 12:4 5 PM FINANCIAL ASSISTANCE SPECIALIST Narrative 09/15/2024 5:05 PM FINANCIAL ASSISTANCE SPECIALIST [facility] [address] [address] TRANSESOPHAGEAL ECHOCARDIOGRAM Patient Name: BROOKE MARSHALL : 1975 (48y 8m) Gender: F Study Date: 09/15/2024 12:45:30 PM Ht(Inch): 65 Wt(Lb): 202.01 BSA: 2.05 Ebay Reseller: Location: [id number] Order Provider: NILSON DUBOSE BMI: 33.61 BP: [...] intracardiac vegetation. Electronically Signed By: Nilson Dubose [facility] Card 09/15/2024 5:05:10 PM FINANCIAL ASSISTANCE SPECIALIST Procedure Note Nilson Dubose MD - 09/15/2024 [facility] [address] [place] [address] TRANSESOPHAGEAL ECHOCARDIOGRAM Patient Name: BROOKE MARSHALL : 1975 (48y 8m) Gender: F Study Date: 09/15/2024 12:45:30 PM Ht(Inch): 65 Wt(Lb): 202.01 BSA: 2.05 Ebay Reseller: Location: [address] Order Provider: NILSON DUBOSE BMI: 33.61 [...] intracardiac vegetation. Electronically Signed By: Nilson Dubose [facility] Card 09/15/2024 5:05:10 PM FINANCIAL ASSISTANCE SPECIALIST us Nilson Dubose MD CV ECHO PROCEDURES Final Result * POCT glucose (09/15/2024 1:05 PM FINANCIAL ASSISTANCE SPECIALIST) [facility] Glucose, POC 151 70 - 199 mg/dL Comment: For Glucose values <35 mg/dl when Hematocrit is >60 mg/dl,the test may not accurately detect significant hypoglycemia,and testing in the Laboratory should be considered if clinically indicated. Blood 09/15/2024 1:05 PM FINANCIAL ASSISTANCE SPECIALIST 09/15/2024 1:05 PM FINANCIAL ASSISTANCE SPECIALIST us Flo Villagran MD LAB POCT ORDERABLES - DEVICE Final Result [facility] [address] Department [place] [address] * X-ray chest 1 view (09/15/2024 11:41 AM FINANCIAL ASSISTANCE SPECIALIST) Anatomical Region Laterality Modality Body, Chest N/A Computed Radiogr aphy 09/15/2024 12:0 0 PM FINANCIAL ASSISTANCE SPECIALIST Addenda Addendum by Cira Mancilla MD on 09/15/2024 1:17 PM FINANCIAL ASSISTANCE SPECIALIST Communicated to Dr. Villagran who confirmed that the tube has been pulled back. Dr. Mancilla on 09/15/2024 at 1:15pm. Electronically signed by: Cira Mancilla M.D. Impressions 09/15/2024 12:00 PM FINANCIAL ASSISTANCE SPECIALIST FINDINGS and IMPRESSION: Endotracheal tube terminates in the right bronchus, recommend withdrawal by about 6 cm. Feeding tube courses below the imaged [id number], past the GE junction. Increased airspace opacities in the left lung and increased prominence of right upper perihilar airspace opacities may represent progressive pneumonia, to be correlated clinically. Electronically signed by: Cira Mancilla M.D. Narrative 09/15/2024 12:00 PM FINANCIAL ASSISTANCE SPECIALIST EXAMINATION: XR CHEST 1 VIEW COMPARISON: 09/15/2024 HISTORY: For endotracheal tube position Procedure Note Cira Mancilla MD - 09/15/2024 EXAMINATION: XR CHEST 1 VIEW COMPARISON: 09/15/2024 HISTORY: For endotracheal tube position IMPRESSION: FINDINGS and IMPRESSION: Endotracheal tube terminates in the right bronchus, recommend withdrawal by about 6 cm. Feeding tube courses below the imaged [id number], past the GE junction. Increased airspace opacities in the left lung and increased prominence of right upper perihilar airspace opacities may represent progressive pneumonia, to be correlated clinically. Electronically signed by: Cira Mancilla M.D. Flo Villagran MD IMG XR PROCEDURES Edited Res ult - Final * (ABNORMAL) Blood gas, arterial (09/15/2024 11:34 AM FINANCIAL ASSISTANCE SPECIALIST) pH, Art 7.32(L) 7.35 - 7.45 PCO2, Arterial 48(H) 35 - 45 mmHg [facility] PO2, Arterial 264(H) 83 - 108 mmHg [facility] HCO3 Art (Calculated) 25 20 - 30 mmol/L [facility] BE, art -2 mmol/L [facility] Comment: Interpretive Data No Reference Range Established Current Interpretive Data was last revised on 2017 O2 Sat Art (Calculated) 100(H) 94 - 98 % [facility] Blood 09/15/2024 11:3 4 AM FINANCIAL ASSISTANCE SPECIALIST 09/15/2024 11:36 AM FINANCIAL ASSISTANCE SPECIALIST Flo Villagran MD LAB BLOOD ORDERABLES Final R esult [facility] [address] Department [place] [address] * POCT glucose (09/15/2024 11:07 AM FINANCIAL ASSISTANCE SPECIALIST) Glucose, POC 183 70 - 199 mg/dL Comment: For Glucose values <35 mg/dl when Hematocrit is >60 mg/dl,the test may not accurately detect significant hypoglycemia,and testing in the Laboratory should be considered if clinically indicated. Blood 09/15/2024 11:0 7 AM FINANCIAL ASSISTANCE SPECIALIST 09/15/2024 11:07 AM FINANCIAL ASSISTANCE SPECIALIST us Flo Villagran MD LAB POCT ORDERABLES - DEVICE Final Result [facility] [address] Department [place] [address] * INTUBATION (09/15/2024 10:31 AM FINANCIAL ASSISTANCE SPECIALIST) Narrative Flo Villagran MD - 09/15/2024 10:31 AM FINANCIAL ASSISTANCE SPECIALIST Flo Villagran MD 09/15/2024 11:11 AM Intubation [...] * (ABNORMAL) POCT glucose (09/15/2024 9:16 AM FINANCIAL ASSISTANCE SPECIALIST) Glucose, POC 200(H) 70 - 199 mg/dL Comment: For Glucose values <35 mg/dl when Hematocrit is >60 mg/dl,the test may not accurately detect significant hypoglycemia,and testing in the Laboratory should be considered if clinically indicated. Blood 09/15/2024 9:16 AM FINANCIAL ASSISTANCE SPECIALIST 09/15/2024 9:16 AM FINANCIAL ASSISTANCE SPECIALIST Flo Villagran MD LAB POCT ORDERABLES - DEVICE Final Result Performing Organization Address [facility] de Phone Number [facility] [address] [facility] [place] [address] * POCT glucose (09/15/2024 7:06 AM FINANCIAL ASSISTANCE SPECIALIST) Glucose, POC 186 70 - 199 mg/dL Comment: For Glucose values <35 mg/dl when Hematocrit is >60 mg/dl,the test may not accurately detect significant hypoglycemia,and testing in the Laboratory should be considered if clinically indicated. Blood 09/15/2024 7:06 AM FINANCIAL ASSISTANCE SPECIALIST 09/15/2024 7:06 AM FINANCIAL ASSISTANCE SPECIALIST Flo Villagran MD LAB POCT ORDERABLES - DEVICE Final Result Performing Organization Address [facility] de Phone Number [facility] [address] [facility] [place] [address] * POCT glucose (09/15/2024 5:27 AM FINANCIAL ASSISTANCE SPECIALIST) Glucose, POC 187 70 - 199 mg/dL Comment: For Glucose values <35 mg/dl when Hematocrit is >60 mg/dl,the test may not accurately detect significant hypoglycemia,and testing in the Laboratory should be considered if clinically indicated. Blood 09/15/2024 5:27 AM FINANCIAL ASSISTANCE SPECIALIST 09/15/2024 5:27 AM FINANCIAL ASSISTANCE SPECIALIST Flo Villagran MD LAB POCT ORDERABLES - DEVICE Final Result Performing Organization Address [facility] de Phone Number [facility] [address] [facility] [place] [address] * POCT glucose (09/15/2024 3:51 AM FINANCIAL ASSISTANCE SPECIALIST) Glucose, POC 189 70 - 199 mg/dL Comment: For Glucose values <35 mg/dl when Hematocrit is >60 mg/dl,the test may not accurately detect significant hypoglycemia,and testing in the Laboratory should be considered if clinically indicated. Blood 09/15/2024 3:51 AM FINANCIAL ASSISTANCE SPECIALIST 09/15/2024 3:51 AM FINANCIAL ASSISTANCE SPECIALIST us Flo Villagran MD LAB POCT ORDERABLES - DEVICE Final Result Performing Organization Address [facility] Co de Phone Number [facility] [address] Department [address] [place], [place] [id number] * (ABNORMAL) aPTT (09/15/2024 3:48 AM FINANCIAL ASSISTANCE SPECIALIST) aPTT 49(H) 28 - 38 sec Comment: Interpretive Data Heparin therapeutic range: 66.0 - 100.0 seconds. Range based on correlation with therapeutic heparin activity range of 0.3 - 0.7 Units/mL. Current interpretive data was last revised on 2023. Blood 09/15/2024 3:48 AM FINANCIAL ASSISTANCE SPECIALIST 09/15/2024 3:52 AM FINANCIAL ASSISTANCE SPECIALIST us Abeba Ash MD LAB BLOOD ORDERABLES Final R esult Performing Organization Address [facility] de Phone Number [facility] [address] [place] [address] * XR Chest 1 View (09/15/2024 3:41 AM FINANCIAL ASSISTANCE SPECIALIST) Anatomical Region Laterality Modality Body, Chest N/A Computed Radiogr aphy 09/15/2024 7:33 AM FINANCIAL ASSISTANCE SPECIALIST Impressions 09/15/2024 7:33 AM FINANCIAL ASSISTANCE SPECIALIST Comparison is made to 09/14/2024. A nasogastric tube tip is located with diaphragm, not included [id number]. There is slightly improving aeration within the left midlung and lung base which may represent improving pneumonia. The right mid to upper lung there is a persistent area of nodular consolidation which is favored to be infectious as well. No pleural effusion. No pneumothorax. Stable heart size. Electronically signed by: Ruiz Coles M.D. Narrative 09/15/2024 7:33 AM FINANCIAL ASSISTANCE SPECIALIST Examination: Chest 1 view Procedure Note Ruiz Coles MD - 09/15/2024 Examination: Chest 1 view IMPRESSION: Comparison is made to 09/14/2024. A nasogastric tube tip is located with diaphragm, not included [id number]. There is slightly improving aeration within the [...] lt * (ABNORMAL) eGFR (09/15/2024 1:50 AM FINANCIAL ASSISTANCE SPECIALIST) eGFR 40(L) >=60 mL/min/1. 73 m2 Comment: [...] last reviewed 2021. Blood 09/15/2024 1:50 AM FINANCIAL ASSISTANCE SPECIALIST 09/15/2024 2:27 AM FINANCIAL ASSISTANCE SPECIALIST Flo Villagran MD LAB BLOOD ORDERABLES Final R esult [facility] [address] Department [place] [address] * (ABNORMAL) CBC without differential (09/15/2024 1:50 AM FINANCIAL ASSISTANCE SPECIALIST) Pathologist [facility] WBC 5.0 3.8 - 9.9 K/cumm Hgb 9.9(L) 11.9 - 15.5 g/dL [facility] Hct 31.5(L) 35.6 - 45.5 % [facility] Plt 67(L) 150 - 400 K/cumm [facility] Comment:Automated count conf irmed by smear review. MPV 13.3(H) 9.1 - 12.3 fL [facility] RBC 3.39(L) 3.90 - 5.20 M/cumm [facility] MCV 92.9 81.3 - 96.4 fL [facility] MCH 29.2 27.1 - 33.3 pg [facility] MCHC 31.4(L) 32.3 - 35.7 g/dL [facility] RDW CV 15.0(H) 11.1 - 14.9 % [facility] RDW SD 51.5(H) 35.7 - 48.1 fL [facility] NRBC abs 0.00 0.00 - 0.01 K/cumm [facility] Blood 09/15/2024 1:50 AM FINANCIAL ASSISTANCE SPECIALIST 09/15/2024 2:27 AM FINANCIAL ASSISTANCE SPECIALIST Flo Villagran MD LAB BLOOD ORDERABLES Final R esult [facility] [address] Department [place] [address] * (ABNORMAL) Phosphorus (09/15/2024 1:50 AM FINANCIAL ASSISTANCE SPECIALIST) Pathologist [facility] Phosphorus, pl 1.7(L) 2.3 - 4.5 mg/dL Blood 09/15/2024 1:50 AM FINANCIAL ASSISTANCE SPECIALIST 09/15/2024 2:27 AM FINANCIAL ASSISTANCE SPECIALIST Flo Villagran MD LAB BLOOD ORDERABLES Final R esult Performing Organization Address [facility] Co de Phone Number [facility] [address] [facility] [place] [address] * Magnesium (09/15/2024 1:50 AM FINANCIAL ASSISTANCE SPECIALIST) [facility] Magnesium 2.4 1.4 - 2.5 mg/dL Comment:Reviewed Blood 09/15/2024 1:50 AM FINANCIAL ASSISTANCE SPECIALIST 09/15/2024 2:27 AM FINANCIAL ASSISTANCE SPECIALIST Flo Villagran MD LAB BLOOD ORDERABLES Final R esult Performing Organization Address [facility] de Phone Number [facility] [address] [facility] [place] [address] * Bilirubin, direct (09/15/2024 1:50 AM FINANCIAL ASSISTANCE SPECIALIST) [facility] Bilirubin, direct 0.3 0.1 - 0.3 mg/dL Blood 09/15/2024 1:50 AM FINANCIAL ASSISTANCE SPECIALIST 09/15/2024 2:27 AM FINANCIAL ASSISTANCE SPECIALIST Flo Villagran MD LAB BLOOD ORDERABLES Final R esult Performing Organization Address [facility] Co de Phone Number [facility] [address] [place] [address] * (ABNORMAL) Comprehensive metabolic panel (09/15/2024 1:50 AM FINANCIAL ASSISTANCE SPECIALIST) [facility] Sodium 147(H) 135 - 145 mmol/L Potassium, pl 3.1(L) 3.3 - 4.9 mmol/L [facility] Chloride 110 97 - 110 mmol/L [facility] CO2 24 22 - 32 mmol/L [facility] Anion gap 13 2 - 15 mmol/L [facility] BUN 44(H) 6 - 25 mg/dL [facility] Creatinine 1.56(H) 0.60 - 1.10 mg/dL [facility] Glucose 179 70 - 199 mg/dL [facility] Comment: Interpretive Data Fasting glucose >/= 126 [...] 8.5 - 10.3 mg/dL [facility] Bilirubin, total 0.5 0.1 - 1.2 mg/dL [facility] Protein, pl 5.6(L) 6.5 - 8.5 g/dL [facility] Albumin 2.4(L) 3.5 - 5.0 g/dL [facility] Alk phos 77 40 - 130 Units/L [facility] ALT 23 7 - 45 Units/L [facility] AST 35 10 - 45 Units/L [facility] Blood 09/15/2024 1:50 AM FINANCIAL ASSISTANCE SPECIALIST 09/15/2024 2:27 AM FINANCIAL ASSISTANCE SPECIALIST Flo Villagran MD LAB BLOOD ORDERABLES Final R esult [facility] [address] Department [place] [address] * POCT glucose (09/15/2024 12:53 AM FINANCIAL ASSISTANCE SPECIALIST) [facility] Signature Glucose, POC 166 70 - 199 mg/dL Comment: For Glucose values <35 mg/dl when Hematocrit is >60 mg/dl,the test may not accurately detect significant hypoglycemia,and testing in the Laboratory should be considered if clinically indicated. Blood 09/15/2024 12:5 3 AM FINANCIAL ASSISTANCE SPECIALIST 09/15/2024 12:53 AM FINANCIAL ASSISTANCE SPECIALIST Flo Villagran MD LAB POCT ORDERABLES - DEVICE Final Result Performing Organization Address [facility] de Phone Number [facility] [address] [facility] [place] [address] * POCT glucose (09/14/2024 11:15 PM FINANCIAL ASSISTANCE SPECIALIST) Glucose, POC 178 70 - 199 mg/dL Comment: For Glucose values <35 mg/dl when Hematocrit is >60 mg/dl,the test may not accurately detect significant hypoglycemia,and testing in the Laboratory should be considered if clinically indicated. Blood 09/14/2024 11:1 5 PM FINANCIAL ASSISTANCE SPECIALIST 09/14/2024 11:15 PM FINANCIAL ASSISTANCE SPECIALIST Flo Villagran MD LAB POCT ORDERABLES - DEVICE Final Result Performing Organization Address [facility] de Phone Number [facility] [address] [facility] [place] [address] * (ABNORMAL) aPTT (09/14/2024 9:19 PM FINANCIAL ASSISTANCE SPECIALIST) aPTT 57(H) 28 - 38 sec Comment: Interpretive Data Heparin therapeutic range: 66.0 - 100.0 seconds. Range based on correlation with therapeutic heparin activity range of 0.3 - 0.7 Units/mL. Current interpretive data was last revised on 2023. Blood 09/14/2024 9:19 PM FINANCIAL ASSISTANCE SPECIALIST 09/14/2024 9:19 PM FINANCIAL ASSISTANCE SPECIALIST Flo Villagran MD LAB BLOOD ORDERABLES Final R esult Performing Organization Address [facility] de Phone Number [facility] [address] [facility] [place] [address] * POCT glucose (09/14/2024 9:16 PM FINANCIAL ASSISTANCE SPECIALIST) Glucose, POC 162 70 - 199 mg/dL Comment: For Glucose values <35 mg/dl when Hematocrit is >60 mg/dl,the test may not accurately detect significant hypoglycemia,and testing in the Laboratory should be considered if clinically indicated. Blood 09/14/2024 9:16 PM FINANCIAL ASSISTANCE SPECIALIST 09/14/2024 9:16 PM FINANCIAL ASSISTANCE SPECIALIST Flo Villagran MD LAB POCT ORDERABLES - DEVICE Final Result Performing Organization Address [facility] de Phone Number [facility] [address] [facility] [place] [address] * POCT glucose (09/14/2024 7:20 PM FINANCIAL ASSISTANCE SPECIALIST) Glucose, POC 171 70 - 199 mg/dL Comment: For Glucose values <35 mg/dl when Hematocrit is >60 mg/dl,the test may not accurately detect significant hypoglycemia,and testing in the Laboratory should be considered if clinically indicated. Blood 09/14/2024 7:20 PM FINANCIAL ASSISTANCE SPECIALIST 09/14/2024 7:20 PM FINANCIAL ASSISTANCE SPECIALIST Flo Villagran MD LAB POCT ORDERABLES - DEVICE Final Result Performing Organization Address [facility] de Phone Number [facility] [address] [facility] [place] [address] * POCT glucose (09/14/2024 6:16 PM FINANCIAL ASSISTANCE SPECIALIST) Glucose, POC 183 70 - 199 mg/dL Comment: For Glucose values <35 mg/dl when Hematocrit is >60 mg/dl,the test may not accurately detect significant hypoglycemia,and testing in the Laboratory should be considered if clinically indicated. Blood 09/14/2024 6:16 PM FINANCIAL ASSISTANCE SPECIALIST 09/14/2024 6:16 PM FINANCIAL ASSISTANCE SPECIALIST Flo Villagran MD LAB POCT ORDERABLES - DEVICE Final Result Performing Organization Address [facility] Co de Phone Number [facility] [address] [facility] [place] [address] * POCT glucose (09/14/2024 4:55 PM FINANCIAL ASSISTANCE SPECIALIST) Glucose, POC 186 70 - 199 mg/dL Comment: For Glucose values <35 mg/dl when Hematocrit is >60 mg/dl,the test may not accurately detect significant hypoglycemia,and testing in the Laboratory should be considered if clinically indicated. Blood 09/14/2024 4:55 PM FINANCIAL ASSISTANCE SPECIALIST 09/14/2024 4:55 PM FINANCIAL ASSISTANCE SPECIALIST Flo Villagran MD LAB POCT ORDERABLES - DEVICE Final Result Performing Organization Address [facility] de Phone Number [facility] [address] Department [place] [address] * POCT glucose (09/14/2024 4:10 PM FINANCIAL ASSISTANCE SPECIALIST) Glucose, POC 179 70 - 199 mg/dL Comment: For Glucose values <35 mg/dl when Hematocrit is >60 mg/dl,the test may not accurately detect significant hypoglycemia,and testing in the Laboratory should be considered if clinically indicated. Blood 09/14/2024 4:10 PM FINANCIAL ASSISTANCE SPECIALIST 09/14/2024 4:10 PM FINANCIAL ASSISTANCE SPECIALIST Result [facility] Flo Villagran MD LAB POCT ORDERABLES - DEVICE Final Result Performing Organization Address [facility] de Phone Number [facility] [address] [place] [address] * POCT glucose (09/14/2024 3:03 PM FINANCIAL ASSISTANCE SPECIALIST) Glucose, POC 179 70 - 199 mg/dL Comment: For Glucose values <35 mg/dl when Hematocrit is >60 mg/dl,the test may not accurately detect significant hypoglycemia,and testing in the Laboratory should be considered if clinically indicated. Blood 09/14/2024 3:03 PM FINANCIAL ASSISTANCE SPECIALIST 09/14/2024 3:03 PM FINANCIAL ASSISTANCE SPECIALIST Flo Villagran MD LAB POCT ORDERABLES - DEVICE Final Result Performing Organization Address [facility] de Phone Number [facility] [address] Department [place] [address] * (ABNORMAL) eGFR (09/14/2024 1:05 PM FINANCIAL ASSISTANCE SPECIALIST) eGFR 41(L) >=60 mL/min/1. 73 m2 Comment: [...] last reviewed 2021. Blood 09/14/2024 1:05 PM FINANCIAL ASSISTANCE SPECIALIST 09/14/2024 1:20 PM FINANCIAL ASSISTANCE SPECIALIST Flo Villagran MD LAB BLOOD ORDERABLES Final R esult [facility] [address] [place] [address] * (ABNORMAL) aPTT (09/14/2024 1:05 PM FINANCIAL ASSISTANCE SPECIALIST) aPTT 112(H) 28 - 38 sec Comment: Interpretive Data Heparin therapeutic range: 66.0 - 100.0 seconds. Range based on correlation with therapeutic heparin activity range of 0.3 - 0.7 Units/mL. Current interpretive data was last revised on 2023. Blood 09/14/2024 1:05 PM FINANCIAL ASSISTANCE SPECIALIST 09/14/2024 1:19 PM FINANCIAL ASSISTANCE SPECIALIST us Flo Villagran MD LAB BLOOD ORDERABLES Final R esult Performing Organization Address City/[facility]/ZIP Co de Phone Number [facility] [address] [place] [address] * (ABNORMAL) Renal function panel (09/14/2024 1:05 PM FINANCIAL ASSISTANCE SPECIALIST) Sodium 152(H) 135 - 145 mmol/L Potassium, pl 3.3 3.3 - 4.9 mmol/L [facility] Chloride 115(H) 97 - 110 mmol/L [facility] CO2 25 22 - 32 mmol/L [facility] Anion gap 12 2 - 15 mmol/L [facility] BUN 45(H) 6 - 25 mg/dL [facility] Creatinine 1.54(H) 0.60 - 1.10 mg/dL [facility] Glucose 177 70 - 199 mg/dL [facility] Comment: Interpretive Data Fasting glucose >/= 126 [...] 8.5 - 10.3 mg/dL [facility] Phosphorus, pl 2.6 2.3 - 4.5 mg/dL [facility] Albumin 2.5(L) 3.5 - 5.0 g/dL [facility] Blood 09/14/2024 1:05 PM FINANCIAL ASSISTANCE SPECIALIST 09/14/2024 1:20 PM FINANCIAL ASSISTANCE SPECIALIST us Flo Villagran MD LAB BLOOD ORDERABLES Final R esult [facility] [address] [place] [address] * POCT glucose (09/14/2024 12:55 PM FINANCIAL ASSISTANCE SPECIALIST) Glucose, POC 168 70 - 199 mg/dL Comment: For Glucose values <35 mg/dl when Hematocrit is >60 mg/dl,the test may not accurately detect significant hypoglycemia,and testing in the Laboratory should be considered if clinically indicated. Blood 09/14/2024 12:5 5 PM FINANCIAL ASSISTANCE SPECIALIST 09/14/2024 12:55 PM FINANCIAL ASSISTANCE SPECIALIST Flo Villagran MD LAB POCT ORDERABLES - DEVICE Final Result Performing Organization Address [facility] Co de Phone Number [facility] [address] [facility] [place] [address] * POCT glucose (09/14/2024 12:01 PM FINANCIAL ASSISTANCE SPECIALIST) Glucose, POC 170 70 - 199 mg/dL Comment: For Glucose values <35 mg/dl when Hematocrit is >60 mg/dl,the test may not accurately detect significant hypoglycemia,and testing in the Laboratory should be considered if clinically indicated. Blood 09/14/2024 12:0 1 PM FINANCIAL ASSISTANCE SPECIALIST 09/14/2024 12:01 PM FINANCIAL ASSISTANCE SPECIALIST Flo Villagran MD LAB POCT ORDERABLES - DEVICE Final Result Performing Organization Address City/[facility] Co de Phone Number [facility] [address] Department [place] [address] * POCT glucose (09/14/2024 11:05 AM FINANCIAL ASSISTANCE SPECIALIST) Glucose, POC 188 70 - 199 mg/dL Comment: For Glucose values <35 mg/dl when Hematocrit is >60 mg/dl,the test may not accurately detect significant hypoglycemia,and testing in the Laboratory should be considered if clinically indicated. Blood 09/14/2024 11:0 5 AM FINANCIAL ASSISTANCE SPECIALIST 09/14/2024 11:05 AM FINANCIAL ASSISTANCE SPECIALIST Flo Villagran MD LAB POCT ORDERABLES - DEVICE Final Result Performing Organization Address [facility]/ZIP Co de Phone Number [facility] [address] [facility] [place] [address] * POCT glucose (09/14/2024 10:04 AM FINANCIAL ASSISTANCE SPECIALIST) Glucose, POC 195 70 - 199 mg/dL Comment: For Glucose values <35 mg/dl when Hematocrit is >60 mg/dl,the test may not accurately detect significant hypoglycemia,and testing in the Laboratory should be considered if clinically indicated. Blood 09/14/2024 10:0 4 AM FINANCIAL ASSISTANCE SPECIALIST 09/14/2024 10:04 AM FINANCIAL ASSISTANCE SPECIALIST Flo Villagran MD LAB POCT ORDERABLES - DEVICE Final Result Performing Organization Address [facility] Co de Phone Number [facility] [address] [facility] [place] [address] * (ABNORMAL) Blood culture Blood (09/14/2024 9:42 AM FINANCIAL ASSISTANCE SPECIALIST) Pathologist [facility] Direct Specimen Exam Stain: Gram Positive Cocci in clusters Test result called to and read back by Ana Maria Grier RN on 09/15/2024 05:37:49 by MARCELL. Report Final Report: Staphylococcus aureus, methicillin susceptible Susceptibility reported on this organism on previous culture [id number] (.) [facility] Organism STAPHYLOCOCCUS AUREUS, METHICILLIN SUSCEPTIBLE [facility] Blood 09/14/2024 9:42 AM FINANCIAL ASSISTANCE SPECIALIST 09/14/2024 9:50 AM FINANCIAL ASSISTANCE SPECIALIST Narrative [facility] - 09/16/2024 10:13 AM FINANCIAL ASSISTANCE SPECIALIST From a different site than #1. Interpretive [...] organism identification may be performed using the sougou Blood Culture Identification panel. This assay detects microbial DNA in a blood culture broth. This assay has been cleared by the [facility] Food and Drug Administration and its performance characteristics have been verified by the [facility] Microbiology [facility]. Interpretive data was last revised on September 11, 2022. Flo Villagran MD LAB MICROBIOLOGY - GENERAL O RDERABLES Final Result Performing Organization Address [facility] Co de Phone Number [facility] [address] [place] [address] * Blood culture Blood (09/14/2024 9:42 AM FINANCIAL ASSISTANCE SPECIALIST) Report Final Report: No growth Blood 09/14/2024 9:42 AM FINANCIAL ASSISTANCE SPECIALIST 09/14/2024 12:44 PM FINANCIAL ASSISTANCE SPECIALIST Narrative [facility] - 09/19/2024 1:00 PM FINANCIAL ASSISTANCE SPECIALIST Interpretive Data 1. Blood cultures are incubated and monitored continuously for 5 days (120 hours). The first negative report is issued within 24 hours of receipt in the laboratory. 2. All positive cultures are resulted and called to physicians/care providers as soon as they are detected. 3. A rapid molecular test for organism identification may be performed using the sougou Blood Culture Identification panel. This assay detects microbial DNA in a blood culture broth. This assay has been cleared by the [place] Food and Drug Administration and its performance characteristics have been verified by the [facility] Microbiology Laboratory. Interpretive data was last revised on September 11, 2022. Flo Villagran MD LAB MICROBIOLOGY - GENERAL O RDERABLES Final Result Performing Organization Address [facility] Co de Phone Number [facility] [address] [place] [address] * (ABNORMAL) POCT glucose (09/14/2024 8:56 AM FINANCIAL ASSISTANCE SPECIALIST) Glucose, POC 228(H) 70 - 199 mg/dL Comment: For Glucose values <35 mg/dl when Hematocrit is >60 mg/dl,the test may not accurately detect significant hypoglycemia,and testing in the Laboratory should be considered if clinically indicated. Blood 09/14/2024 8:56 AM FINANCIAL ASSISTANCE SPECIALIST 09/14/2024 8:56 AM FINANCIAL ASSISTANCE SPECIALIST Flo Villagran MD LAB POCT ORDERABLES - DEVICE Final Result Performing Organization Address [facility] Co de Phone Number [facility] [address] Department [place] [address] * (ABNORMAL) Blood gas, arterial (09/14/2024 8:08 AM FINANCIAL ASSISTANCE SPECIALIST) pH, Art 7.34(L) 7.35 - 7.45 PCO2, Arterial 45 35 - 45 mmHg [facility] PO2, Arterial 79(L) 83 - 108 mmHg [facility] HCO3 Art (Calculated) 24 20 - 30 mmol/L [facility] BE, art -2 mmol/L [facility] Comment: Interpretive Data No Reference Range Established Current Interpretive Data was last revised on 2017 O2 Sat Art (Calculated) 95 94 - 98 % [facility] Blood 09/14/2024 8:08 AM FINANCIAL ASSISTANCE SPECIALIST 09/14/2024 8:11 AM FINANCIAL ASSISTANCE SPECIALIST Flo Villagran MD LAB BLOOD ORDERABLES Final R esult Performing Organization Address [facility] de Phone Number [facility] [address] Department [place] [address] * (ABNORMAL) POCT glucose (09/14/2024 7:50 AM FINANCIAL ASSISTANCE SPECIALIST) Glucose, POC 235(H) 70 - 199 mg/dL Comment: For Glucose values <35 mg/dl when Hematocrit is >60 mg/dl,the test may not accurately detect significant hypoglycemia,and testing in the Laboratory should be considered if clinically indicated. Blood 09/14/2024 7:50 AM FINANCIAL ASSISTANCE SPECIALIST 09/14/2024 7:50 AM FINANCIAL ASSISTANCE SPECIALIST Flo Villagran MD LAB POCT ORDERABLES - DEVICE Final Result Performing Organization Address [facility] de Phone Number [facility] [address] Department [place] [address] * (ABNORMAL) aPTT (09/14/2024 6:06 AM FINANCIAL ASSISTANCE SPECIALIST) Pathologist [facility] aPTT >150(C) 28 - 38 sec Comment: Critical result called to and read back by Tatiana Sutton (RN) on 09/14/2024 07:20:52 FINANCIAL ASSISTANCE SPECIALIST to [id number]. Specimen integrity checked. No clot Interpretive Data Heparin therapeutic range: 66.0 - 100.0 seconds. Range based on correlation with therapeutic heparin activity range of 0.3 - 0.7 Units/mL. Current interpretive data was last revised on 2023. Blood 09/14/2024 6:06 AM FINANCIAL ASSISTANCE SPECIALIST 09/14/2024 6:23 AM FINANCIAL ASSISTANCE SPECIALIST us Abeba Ash MD LAB BLOOD ORDERABLES Final R esult Performing Organization Address [facility] de Phone Number [facility] [address] [facility] [place] [address] * (ABNORMAL) POCT glucose (09/14/2024 4:10 AM FINANCIAL ASSISTANCE SPECIALIST) Pathologist [facility] Glucose, POC 301(H) 70 - 199 mg/dL Comment: For Glucose values <35 mg/dl when Hematocrit is >60 mg/dl,the test may not accurately detect significant hypoglycemia,and testing in the Laboratory should be considered if clinically indicated. Blood 09/14/2024 4:10 AM FINANCIAL ASSISTANCE SPECIALIST 09/14/2024 4:10 AM FINANCIAL ASSISTANCE SPECIALIST us Flo Villagran MD LAB POCT ORDERABLES - DEVICE Final Result Performing Organization Address [facility] de Phone Number [facility] [address] [facility] [place] [address] * XR Chest 1 View (09/14/2024 3:10 AM FINANCIAL ASSISTANCE SPECIALIST) Anatomical Region Laterality Modality Body, Chest N/A Computed Radiogr aphy 09/14/2024 7:30 AM FINANCIAL ASSISTANCE SPECIALIST Impressions 09/14/2024 7:30 AM FINANCIAL ASSISTANCE SPECIALIST Comparison is made to prior chest radiograph dated 09/13/2024. Feeding tube terminates in the stomach. There are increased patchy opacities in the left greater than right lung bases. Findings are most consistent with pneumonia, possibly related to aspiration. No pleural effusion. No pneumothorax. Stable heart size. Electronically signed by: Pippa Sin M.D. Narrative 09/14/2024 7:30 AM FINANCIAL ASSISTANCE SPECIALIST EXAMINATION: XR CHEST 1 VIEW Procedure Note [...] lt * (ABNORMAL) eGFR (09/14/2024 1:59 AM FINANCIAL ASSISTANCE SPECIALIST) eGFR 38(L) >=60 mL/min/1. 73 m2 Comment: [...] last reviewed 2021. Blood 09/14/2024 1:59 AM FINANCIAL ASSISTANCE SPECIALIST 09/14/2024 2:14 AM FINANCIAL ASSISTANCE SPECIALIST us Flo Villagran MD LAB BLOOD ORDERABLES Final R esult [facility] [address] Department [place] [address] * (ABNORMAL) Manual Differential (09/14/2024 1:59 AM FINANCIAL ASSISTANCE SPECIALIST) Cells Counted 125 Neutrophil abs 3.5 1.5 - 6.5 K/cumm [facility] Imm gran abs 0.1 0.0 - 0.1 K/cumm [facility] Lymphocyte abs 0.3(L) 0.8 - 3.3 K/cumm [facility] Monocyte abs 0.4 0.2 - 0.8 K/cumm [facility] Neutrophil pct 83.2 % [facility] Comment: Interpretive Data Percent cell count reference ranges are not reported, since discordance with absolute values may lead to misinterpretation of CBC data. Current Interpretive Data was last revised on 2017. Lymphocyte pct 6.4 % [facility] Comment: Interpretive Data Percent cell count reference ranges are not reported, since discordance with absolute values may lead to misinterpretation of CBC data. Current Interpretive Data was last revised on 2017. Monocyte pct 8.8 % [facility] Comment: Interpretive Data Percent cell count reference ranges are not reported, since discordance with absolute values may lead to misinterpretation of CBC data. Current Interpretive Data was last revised on 2017. Metamyelocyte pct 1.6(H) 0.0 - 0.0 % [facility] RBC morphology Present(A) [facility] Anisocytosis Slight(A) [facility] Poikilocytosis Moderate(A ) [facility] Echinocytes 3-7/HPF(A) [facility] Platelet estimate Decreased( A) [facility] Morphology scrn See Comment [facility] Comment:WBC: Toxic Vacuolati on present PLT: Platelet morphology normal Automated count not confirmed by smear review; See platelet estimate Blood 09/14/2024 1:59 AM FINANCIAL ASSISTANCE SPECIALIST 09/14/2024 2:14 AM FINANCIAL ASSISTANCE SPECIALIST Flo Villagran MD LAB BLOOD ORDERABLES Final R esult Performing Organization Address [facility] Co de Phone Number [facility] [address] [place] [address] * (ABNORMAL) CBC without differential (09/14/2024 1:59 AM FINANCIAL ASSISTANCE SPECIALIST) WBC 4.2 3.8 - 9.9 K/cumm Hgb 11.1(L) 11.9 - 15.5 g/dL [facility] Hct 36.5 35.6 - 45.5 % [facility] Plt 71(L) 150 - 400 K/cumm [facility] Comment:no clot MPV 12.8(H) 9.1 - 12.3 fL [facility] RBC 3.85(L) 3.90 - 5.20 M/cumm [facility] MCV 94.8 81.3 - 96.4 fL [facility] MCH 28.8 27.1 - 33.3 pg [facility] MCHC 30.4(L) 32.3 - 35.7 g/dL [facility] RDW CV 14.8 11.1 - 14.9 % [facility] RDW SD 51.8(H) 35.7 - 48.1 fL [facility] NRBC abs 0.00 0.00 - 0.01 K/cumm [facility] Blood 09/14/2024 1:59 AM FINANCIAL ASSISTANCE SPECIALIST 09/14/2024 2:14 AM FINANCIAL ASSISTANCE SPECIALIST Flo Villagran MD LAB BLOOD ORDERABLES Final R esult Performing Organization Address City/[facility]/ZIP Co de Phone Number [facility] [address] [place] [address] * Phosphorus (09/14/2024 1:59 AM FINANCIAL ASSISTANCE SPECIALIST) Phosphorus, pl 4.2 2.3 - 4.5 mg/dL Comment:Reviewed Blood 09/14/2024 1:59 AM FINANCIAL ASSISTANCE SPECIALIST 09/14/2024 2:14 AM FINANCIAL ASSISTANCE SPECIALIST Result [facility] Flo Villagran MD LAB BLOOD ORDERABLES Final R esult Performing Organization Address [facility] Co de Phone Number [facility] [address] [facility] [employer] [place], [place] [id number] * Magnesium (09/14/2024 1:59 AM FINANCIAL ASSISTANCE SPECIALIST) Pathologist [facility] Magnesium 1.8 1.4 - 2.5 mg/dL Blood 09/14/2024 1:59 AM FINANCIAL ASSISTANCE SPECIALIST 09/14/2024 2:14 AM FINANCIAL ASSISTANCE SPECIALIST Flo Villagran MD LAB BLOOD ORDERABLES Final R esult Performing Organization Address [facility] Co de Phone Number [facility] [address] [facility] [place] [address] * Bilirubin, direct (09/14/2024 1:59 AM FINANCIAL ASSISTANCE SPECIALIST) Pathologist [facility] Bilirubin, direct 0.3 0.1 - 0.3 mg/dL Blood 09/14/2024 1:59 AM FINANCIAL ASSISTANCE SPECIALIST 09/14/2024 2:14 AM FINANCIAL ASSISTANCE SPECIALIST Result [facility] Flo Villagran MD LAB BLOOD ORDERABLES Final R esult Performing Organization Address [facility] Co de Phone Number [facility] [address] [facility] [place] [address] * (ABNORMAL) Comprehensive metabolic panel (09/14/2024 1:59 AM FINANCIAL ASSISTANCE SPECIALIST) Pathologist [facility] Sodium 149(H) 135 - 145 mmol/L Potassium, pl 3.8 3.3 - 4.9 mmol/L [facility] Chloride 112(H) 97 - 110 mmol/L [facility] CO2 20(L) 22 - 32 mmol/L [facility] Anion gap 17(H) 2 - 15 mmol/L [facility] BUN 44(H) 6 - 25 mg/dL [facility] Creatinine 1.63(H) 0.60 - 1.10 mg/dL [facility] Glucose 312(H) 70 - 199 mg/dL [facility] Comment: Interpretive Data Fasting glucose >/= 126 [...] 8.5 - 10.3 mg/dL [facility] Bilirubin, total 0.6 0.1 - 1.2 mg/dL [facility] Protein, pl 6.0(L) 6.5 - 8.5 g/dL [facility] Albumin 2.8(L) 3.5 - 5.0 g/dL [facility] Alk phos 96 40 - 130 Units/L [facility] ALT 28 7 - 45 Units/L [facility] AST 51(H) 10 - 45 Units/L [facility] Blood 09/14/2024 1:59 AM FINANCIAL ASSISTANCE SPECIALIST 09/14/2024 2:14 AM FINANCIAL ASSISTANCE SPECIALIST us Flo Villagran MD LAB BLOOD ORDERABLES Final R esult [facility] [address] Department [place] [address] * (ABNORMAL) POCT glucose (09/14/2024 12:41 AM FINANCIAL ASSISTANCE SPECIALIST) [facility] Glucose, POC 266(H) 70 - 199 mg/dL Comment: For Glucose values <35 mg/dl when Hematocrit is >60 mg/dl,the test may not accurately detect significant hypoglycemia,and testing in the Laboratory should be considered if clinically indicated. Blood 09/14/2024 12:4 1 AM FINANCIAL ASSISTANCE SPECIALIST 09/14/2024 12:41 AM FINANCIAL ASSISTANCE SPECIALIST Flo Villagran MD LAB POCT ORDERABLES - DEVICE Final Result Performing Organization Address [facility] de Phone Number [facility] [address] [place] [address] * (ABNORMAL) aPTT (09/13/2024 9:58 PM FINANCIAL ASSISTANCE SPECIALIST) aPTT 148(C) 28 - 38 sec Comment: spoke with Linda Jean (RN) 09/13/2024 22:44:39 FINANCIAL ASSISTANCE SPECIALIST [id number] Interpretive Data Heparin therapeutic range: 66.0 - 100.0 seconds. Range based on correlation with therapeutic heparin activity range of 0.3 - 0.7 Units/mL. Current interpretive data was last revised on 2023. Blood 09/13/2024 9:58 PM FINANCIAL ASSISTANCE SPECIALIST 09/13/2024 10:02 PM FINANCIAL ASSISTANCE SPECIALIST Flo Villagran MD LAB BLOOD ORDERABLES Final R esult Performing Organization Address [facility] de Phone Number [facility] [address] [place] [address] * XR Abdomen 2 Views Erect and or Decubitus (09/13/2024 9:41 PM FINANCIAL ASSISTANCE SPECIALIST) Anatomical Region Laterality Modality Body, Abdomen N/A Computed Radiogr aphy 09/14/2024 9:14 AM FINANCIAL ASSISTANCE SPECIALIST Impressions 09/14/2024 9:14 AM FINANCIAL ASSISTANCE SPECIALIST Supine and upright views of the abdomen [...] Alfonso Taylor M.D. Narrative 09/14/2024 9:14 AM FINANCIAL ASSISTANCE SPECIALIST EXAMINATION: XR ABDOMEN ERECT AND OR DECUBITUS [...] * (ABNORMAL) POCT glucose (09/13/2024 7:57 PM FINANCIAL ASSISTANCE SPECIALIST) [facility] Glucose, POC 249(H) 70 - 199 mg/dL Comment: For Glucose values <35 mg/dl when Hematocrit is >60 mg/dl,the test may not accurately detect significant hypoglycemia,and testing in the Laboratory should be considered if clinically indicated. Blood 09/13/2024 7:57 PM FINANCIAL ASSISTANCE SPECIALIST 09/13/2024 7:57 PM FINANCIAL ASSISTANCE SPECIALIST Flo Villagran MD LAB POCT ORDERABLES - DEVICE Final Result [facility] [address] Department [place] [address] * (ABNORMAL) eGFR (09/13/2024 6:33 PM FINANCIAL ASSISTANCE SPECIALIST) [facility] eGFR 47(L) >=60 mL/min/1. 73 m2 [...] last reviewed 2021. Blood 09/13/2024 6:33 PM FINANCIAL ASSISTANCE SPECIALIST 09/13/2024 6:41 PM FINANCIAL ASSISTANCE SPECIALIST Flo Villagran MD LAB BLOOD ORDERABLES Final R esult [facility] [address] Department [place] [address] * (ABNORMAL) Renal function panel (09/13/2024 6:33 PM FINANCIAL ASSISTANCE SPECIALIST) Sodium 146(H) 135 - 145 mmol/L Potassium, pl 3.6 3.3 - 4.9 mmol/L [facility] Chloride 112(H) 97 - 110 mmol/L [facility] CO2 20(L) 22 - 32 mmol/L [facility] Anion gap 14 2 - 15 mmol/L [facility] BUN 42(H) 6 - 25 mg/dL [facility] Creatinine 1.38(H) 0.60 - 1.10 mg/dL [facility] Glucose 182 70 - 199 mg/dL [facility] Comment: Interpretive Data Fasting glucose >/= 126 [...] 8.5 - 10.3 mg/dL [facility] Phosphorus, pl 2.1(L) 2.3 - 4.5 mg/dL [facility] Albumin 2.4(L) 3.5 - 5.0 g/dL [facility] Blood 09/13/2024 6:33 PM FINANCIAL ASSISTANCE SPECIALIST 09/13/2024 6:41 PM FINANCIAL ASSISTANCE SPECIALIST us Flo Villagran MD LAB BLOOD ORDERABLES Final R esult Performing Organization Address [facility] Co de Phone Number [facility] [address] Department [place] [address] * ECG 12 lead (09/13/2024 5:24 PM FINANCIAL ASSISTANCE SPECIALIST) 09/13/2024 5:24 PM FINANCIAL ASSISTANCE SPECIALIST Narrative [facility] - 09/14/2024 12:02 AM FINANCIAL ASSISTANCE SPECIALIST Vent Rate: 136 bpm RR Interval: 440 msec [place] Interval: 122 msec QRS Duration: 86 msec QT Interval: 330 msec QTC Interval: 410 msec P-R-T [place]: 57 - -14 - 116 degrees IMPRESSION: SINUS TACHYCARDIA ST DEVIATION AND MODERATE T-WAVE ABNORMALITY, CONSIDER LATERAL ISCHEMIA ABNORMAL ECG Electronically Signed By: Nilson Dubose [facility] Card us Flo Villagran MD ECG ORDERABLES Final Result Performing Organization Address [facility] Co de Phone Number [facility] [employer] [facility] * POCT glucose (09/13/2024 4:29 PM FINANCIAL ASSISTANCE SPECIALIST) [facility] Glucose, POC 160 70 - 199 mg/dL Comment: For Glucose values <35 mg/dl when Hematocrit is >60 mg/dl,the test may not accurately detect significant hypoglycemia,and testing in the Laboratory should be considered if clinically indicated. Blood 09/13/2024 4:29 PM FINANCIAL ASSISTANCE SPECIALIST 09/13/2024 4:29 PM FINANCIAL ASSISTANCE SPECIALIST Flo Villagran MD LAB POCT ORDERABLES - DEVICE Final Result Performing Organization Address [facility] de Phone Number [facility] [address] [facility] [place] [address] * POCT glucose (09/13/2024 3:18 PM FINANCIAL ASSISTANCE SPECIALIST) Glucose, POC 92 70 - 199 mg/dL Comment: For Glucose values <35 mg/dl when Hematocrit is >60 mg/dl,the test may not accurately detect significant hypoglycemia,and testing in the Laboratory should be considered if clinically indicated. Blood 09/13/2024 3:18 PM FINANCIAL ASSISTANCE SPECIALIST 09/13/2024 3:18 PM FINANCIAL ASSISTANCE SPECIALIST Flo Villagran MD LAB POCT ORDERABLES - DEVICE Final Result Performing Organization Address [facility] de Phone Number [facility] [address] [facility] [place] [address] * POCT glucose (09/13/2024 2:29 PM FINANCIAL ASSISTANCE SPECIALIST) Glucose, POC 102 70 - 199 mg/dL Comment: For Glucose values <35 mg/dl when Hematocrit is >60 mg/dl,the test may not accurately detect significant hypoglycemia,and testing in the Laboratory should be considered if clinically indicated. Blood 09/13/2024 2:29 PM FINANCIAL ASSISTANCE SPECIALIST 09/13/2024 2:29 PM FINANCIAL ASSISTANCE SPECIALIST Flo Villagran MD LAB POCT ORDERABLES - DEVICE Final Result Performing Organization Address [facility] Co de Phone Number [facility] [address] [facility] [place] [address] * (ABNORMAL) aPTT (09/13/2024 2:28 PM FINANCIAL ASSISTANCE SPECIALIST) [facility] aPTT 102(H) 28 - 38 sec Comment: Interpretive Data Heparin therapeutic range: 66.0 - 100.0 seconds. Range based on correlation with therapeutic heparin activity range of 0.3 - 0.7 Units/mL. Current interpretive data was last revised on 2023. Blood 09/13/2024 2:28 PM FINANCIAL ASSISTANCE SPECIALIST 09/13/2024 2:36 PM FINANCIAL ASSISTANCE SPECIALIST Flo Villagran MD LAB BLOOD ORDERABLES Final R esult Performing Organization Address [facility]/ZIP Co de Phone Number [facility] [address] Department [employer] [place], [place] [id number] * POCT glucose (09/13/2024 1:10 PM FINANCIAL ASSISTANCE SPECIALIST) [facility] Glucose, POC 117 70 - 199 mg/dL Comment: For Glucose values <35 mg/dl when Hematocrit is >60 mg/dl,the test may not accurately detect significant hypoglycemia,and testing in the Laboratory should be considered if clinically indicated. Blood 09/13/2024 1:10 PM FINANCIAL ASSISTANCE SPECIALIST 09/13/2024 1:10 PM FINANCIAL ASSISTANCE SPECIALIST Flo Villagran MD LAB POCT ORDERABLES - DEVICE Final Result Performing Organization Address [facility] Co de Phone Number [facility] [address] [place] [address] * (ABNORMAL) eGFR (09/13/2024 12:22 PM FINANCIAL ASSISTANCE SPECIALIST) [facility] eGFR 46(L) >=60 mL/min/1. 73 m2 [...] reviewed 2021. Blood 09/13/2024 12:2 2 PM FINANCIAL ASSISTANCE SPECIALIST 09/13/2024 12:40 PM FINANCIAL ASSISTANCE SPECIALIST Abeba Ash MD LAB BLOOD ORDERABLES Final R esult Performing Organization Address City/[facility]/ZIP Co de Phone Number [facility] [address] [facility] [address] [address] [place], [place] [id number] * Phosphorus (09/13/2024 12:22 PM FINANCIAL ASSISTANCE SPECIALIST) Phosphorus, pl 2.3 2.3 - 4.5 mg/dL Blood 09/13/2024 12:2 2 PM FINANCIAL ASSISTANCE SPECIALIST 09/13/2024 12:40 PM FINANCIAL ASSISTANCE SPECIALIST Abeba Ash MD LAB BLOOD ORDERABLES Final R esult Performing Organization Address [facility] Co de Phone Number [facility] [address] [place] [address] * Magnesium (09/13/2024 12:22 PM FINANCIAL ASSISTANCE SPECIALIST) Magnesium 1.9 1.4 - 2.5 mg/dL Blood 09/13/2024 12:2 2 PM FINANCIAL ASSISTANCE SPECIALIST 09/13/2024 12:40 PM FINANCIAL ASSISTANCE SPECIALIST Abeba Ash MD LAB BLOOD ORDERABLES Final R esult Performing Organization Address City/[facility] Co de Phone Number [facility] [address] [place] [address] * (ABNORMAL) Basic metabolic panel (09/13/2024 12:22 PM FINANCIAL ASSISTANCE SPECIALIST) Sodium 146(H) 135 - 145 mmol/L Potassium, pl 3.5 3.3 - 4.9 mmol/L [facility] Chloride 111(H) 97 - 110 mmol/L [facility] CO2 22 22 - 32 mmol/L [facility] Anion gap 13 2 - 15 mmol/L [facility] BUN 47(H) 6 - 25 mg/dL [facility] Creatinine 1.41(H) 0.60 - 1.10 mg/dL [facility] Glucose 141 70 - 199 mg/dL [facility] Comment: Interpretive Data Fasting glucose >/= 126 [...] 8.5 - 10.3 mg/dL [facility] Blood 09/13/2024 12:2 2 PM FINANCIAL ASSISTANCE SPECIALIST 09/13/2024 12:40 PM FINANCIAL ASSISTANCE SPECIALIST us Abeba Ash MD LAB BLOOD ORDERABLES Final R esult [facility] [address] Department [place] [address] * POCT glucose (09/13/2024 12:20 PM FINANCIAL ASSISTANCE SPECIALIST) Pathologist [facility] Glucose, POC 142 70 - 199 mg/dL Comment: For Glucose values <35 mg/dl when Hematocrit is >60 mg/dl,the test may not accurately detect significant hypoglycemia,and testing in the Laboratory should be considered if clinically indicated. Blood 09/13/2024 12:2 0 PM FINANCIAL ASSISTANCE SPECIALIST 09/13/2024 12:20 PM FINANCIAL ASSISTANCE SPECIALIST us Flo Villagran MD LAB POCT ORDERABLES - DEVICE Final Result [facility] [address] Department [place] [address] * [place] Carotids Duplex Bilateral (09/13/2024 11:55 AM FINANCIAL ASSISTANCE SPECIALIST) Anatomical Region Laterality Modality Vascular Bilateral Ultrasound 09/13/2024 12:3 7 PM FINANCIAL ASSISTANCE SPECIALIST Impressions 09/13/2024 12:37 PM FINANCIAL ASSISTANCE SPECIALIST 1) There are minimal non-hemodynamic plaque formations [...] Kwaku Tolentino M.D. 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 INDICATIONS: Non ST elevation OR. 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 INDICATIONS: Non ST elevation OR. MEASUREMENTS: 2D/MM Value Range DopplerValue Range IVSd [...] By: Rene Nicole MD 09/13/2024 4:49:40 PM FINANCIAL ASSISTANCE SPECIALIST Abeba Ash MD CV ECHO PROCEDURES Final Res ult * POCT glucose (09/13/2024 11:12 AM FINANCIAL ASSISTANCE SPECIALIST) [facility] Glucose, POC 149 70 - 199 mg/dL Comment: For Glucose values <35 mg/dl when Hematocrit is >60 mg/dl,the test may not accurately detect significant hypoglycemia,and testing in the Laboratory should be considered if clinically indicated. Blood 09/13/2024 11:1 2 AM FINANCIAL ASSISTANCE SPECIALIST 09/13/2024 11:12 AM FINANCIAL ASSISTANCE SPECIALIST us Flo Villagran MD LAB POCT ORDERABLES - DEVICE Final Result [facility] [address] [place] [address] * (ABNORMAL) DIC Platelet (09/13/2024 9:45 AM FINANCIAL ASSISTANCE SPECIALIST) Plt 96(L) 150 - 400 K/cumm Blood 09/13/2024 9:45 AM FINANCIAL ASSISTANCE SPECIALIST 09/13/2024 10:14 AM FINANCIAL ASSISTANCE SPECIALIST Flo Villagran MD LAB BLOOD ORDERABLES Final R esult [facility] [address] Department [place] [address] * (ABNORMAL) DIC Coagulation (09/13/2024 9:45 AM FINANCIAL ASSISTANCE SPECIALIST) PT DIC 10.3 10.3 - 13.7 sec INR DIC 0.95 0.90 - 1.20 [facility] PTT DIC 78(H) 28 - 38 sec [facility] Comment: Interpretive Data Heparin therapeutic range: 66.0 - 100.0 seconds. Range based on correlation with therapeutic heparin activity range of 0.3 - 0.7 Units/mL. Current interpretive data was last revised on 2023. D-Dimer 2,217(H) <=499 ng/mL FEU [facility] Comment: Interpretive data FDA approved the D-dimer, [...] 2019. Fibrinogen 620(H) 170 - 400 mg/dL [facility] Blood 09/13/2024 9:45 AM FINANCIAL ASSISTANCE SPECIALIST 09/13/2024 10:14 AM FINANCIAL ASSISTANCE SPECIALIST Flo Villagran MD LAB BLOOD ORDERABLES Final R esult Performing Organization Address [facility] Co de Phone Number [facility] [address] Department [facility] [place], [place] [id number] * HIT Antibodies with Reflex to Serotonin Release Assay (ASHLEY) (09/13/2024 9:45 AM FINANCIAL ASSISTANCE SPECIALIST) HIT antibodies Negative Negative Comment: INTERPRETIVE DATA A result of >/= 1.0 U/mL is interpreted as Heparin/anti-PF4 antibody positive. A result of < 1.0 U/mL is interpreted as Heparin/anti-PF4 antibody negative. Although a positive result may indicate the presence of Heparin-associated antibodies, it does not CONFIRM the diagnosis of Heparin Induced Thrombocytopenia (HIT). Positive specimens will be sent to [facility] ([facility]) for confirmatory testing by Serotonin Release Assay (ASHLEY). Current interpretive data last reviewed 2017 Blood 09/13/2024 9:45 AM FINANCIAL ASSISTANCE SPECIALIST 09/13/2024 10:14 AM FINANCIAL ASSISTANCE SPECIALIST Flo Villagran MD LAB BLOOD ORDERABLES Final R esult Performing Organization Address [facility] Co de Phone Number [facility] [address] [place] [address] * DIC Schistocytes (09/13/2024 9:45 AM FINANCIAL ASSISTANCE SPECIALIST) Pathologist [facility] Schistocytes None Seen None Seen Blood 09/13/2024 9:45 AM FINANCIAL ASSISTANCE SPECIALIST 09/13/2024 10:14 AM FINANCIAL ASSISTANCE SPECIALIST Flo Villagran MD LAB BLOOD ORDERABLES Final R esult Performing Organization Address [facility] Co de Phone Number [facility] [address] Department [facility] [place], [place] [id number] * (ABNORMAL) Urinalysis reflex to microscopic and culture Urine (09/13/2024 9:45 AM FINANCIAL ASSISTANCE SPECIALIST) Color, ur Yellow Yellow Clarity, ur Turbid(A) Clear [facility] Specific gravity, ur 1.020 1.003 - 1.030 [facility] pH, urine 6.0 [facility] Comment: Interpretive Data U rine pH is affected by diet, medications, systemic acid-base disturbances, and renal tubular function. pH may affect urinary stone formation. For example, urine pH below 6.0 may help reduce the tendency for calcium phosphate stones and pH greater than 6.0 may reduce the tendency for uric acid stone formation. Source: [facility] Current Interpretive Data was last revised on 2017 Protein, ur ql 2+(A) Negative [facility] Glucose, ur ql 3+(A) Negative [facility] Ketones, ur Trace Negative [facility] Bilirubin, ur Negative Negative [facility] Blood, ur 1+(A) Negative [facility] Urobilinogen, ur <2.0 <2.0 mg/dL [facility] Nitrite, ur Negative Negative [facility] Leukocyte esterase, ur 4+(A) Negative [facility] UA reflex comment Reflex to microscopic UA will be performed. [facility] Urine 09/13/2024 9:45 AM FINANCIAL ASSISTANCE SPECIALIST 09/13/2024 9:45 AM FINANCIAL ASSISTANCE SPECIALIST Flo Villagran MD LAB MICROBIOLOGY - GENERAL O RDERABLES Final Result [facility] [address] Department [place] [address] * (ABNORMAL) Drugs of Abuse Screen, Urine without Confirmation (09/13/2024 9:45 AM FINANCIAL ASSISTANCE SPECIALIST) Amphetamine, ur Not Detected CutOff 500ng/mL Comment: [...] Not Detected CutOff 200ng/mL [facility] Comment: Interpretive Data - Barbiturates: Samples containing greater than 200 ng/mL secobarbital or other cross-reacting barbiturate compounds are reported as positive. False positive and false negative results are possible. Confirmatory testing required for definitive results. Current Interpretive Data was last reviewed 2023. Benzodiazepines, ur Not Detected CutOff 100ng/mL [facility] Comment: Interpretive Data - Benzodiazepines: Samples containing greater than 100 ng/mL nordiazepam or other cross-reacting compounds are reported as positive. False positive and false negative results are possible. Confirmatory testing required for definitive results. Current Interpretive Data was last reviewed 2023. Cannabinoids, ur Not Detected CutOff 50 ng/mL [facility] Comment: Interpretive Data - Cannabinoids: Samples containing greater than 50 ng/mL delta-9 THC -COOH or other cross- reacting compounds are reported as positive. False positive and false negative results are possible. Confirmatory testing required for definitive results. Current Interpretive Data was last reviewed 2023. Cocaine, ur Not Detected CutOff 150ng/mL [facility] Comment: Interpretive Data - Cocaine: Samples containing greater than 150 ng/mL benzoylecgonine or other cross- reacting compounds are reported as positive. False positive and false negative results are possible. Confirmatory testing required for definitive results. Current Interpretive Data was last reviewed 2023. Fentanyl, Ur Screen Positive, presumptive (A) CutOff 5 ng/mL [facility] Comment: Interpretive Data - Fentanyl: Samples containing greater than 5 ng/mL norfentanyl, fentanyl, or other cross-reacting fentanyl compounds are reported as positive. False positive and false negative results are possible. Confirmatory testing required for definitive results. Current Interpretive Data was last reviewed 2023. Methadone, ur Not Detected CutOff 300ng/mL [facility] Comment: Interpretive Data - Methadone: Samples containing greater than 300 ng/mL d,l-methadone or other cross-reacting compounds are reported as positive. False positive and false negative results are possible. Confirmatory testing required for definitive results. Current Interpretive Data was last reviewed 2023. Opiates, ur Screen Positive, presumptive (A) CutOff 300ng/mL [facility] Comment: Interpretive Data - Opiates: Samples containing greater than 300 ng/mL morphine or other cross-reacting compounds are reported as positive. False positive and false negative results are possible. Confirmatory testing required for definitive results. Current Interpretive Data was last reviewed 2023. Oxycodone, ur Not Detected CutOff 100ng/mL [facility] Comment: Interpretive Data - Oxycodone: Samples containing greater than 100 ng/mL oxycodone or other cross-reacting compounds are reported as positive. False positive and false negative results are possible. Confirmatory testing required for definitive results. Current Interpretive Data was last reviewed 2023. Phencyclidine, ur Not Detected CutOff 25 ng/mL [facility] Comment: Interpretive Data - Phencyclidine: Samples containing greater than 25 ng/mL phencyclidine or other cross-reacting compounds are reported as positive. False positive and false negative results are possible. Confirmatory testing required for definitive results. Current Interpretive Data was last reviewed 2023. Urine Creatinine 90 mg/dL [facility] Comment: Interpretive Data Urine Creatinine: < 10 mg/dL is extremely dilute = or > 10 but < 20 mg/dL is dilute = or > 20 mg/dL is normal Current Interpretive Data was last revised on 2017. Urine 09/13/2024 9:45 AM FINANCIAL ASSISTANCE SPECIALIST 09/13/2024 10:17 AM FINANCIAL ASSISTANCE SPECIALIST Narrative [facility] - 09/13/2024 10:46 AM FINANCIAL ASSISTANCE SPECIALIST Drug of Abuse screening is performed by immunoassay for medical purposes only. This is not to be used for Pain Management purposes. Flo Villagran MD LAB URINE ORDERABLES Final R esult [facility] [address] Department [place] [address] * (ABNORMAL) Urinalysis, microscopic only (09/13/2024 9:45 AM FINANCIAL ASSISTANCE SPECIALIST) WBC, ur >50(A) 0 - 5 /HPF RBC, ur >50(A) 0 - 2 /HPF [facility] Epithelial cells, squamous, ur >50(A) 0 - 5 /HPF [facility] Comment:Suggestive of contam ination. Consider recollection by clean catch. Bacteria, ur 4+(A) [facility] Yeast, ur 4+(A) [facility] Mucous, ur Present(A) [facility] Culture Reflex Comment Reflex to urine culture will be performed. [facility] Urine 09/13/2024 9:45 AM FINANCIAL ASSISTANCE SPECIALIST 09/13/2024 10:17 AM FINANCIAL ASSISTANCE SPECIALIST Flo Villagran MD LAB URINE ORDERABLES Final R esult Performing Organization Address [facility] Co de Phone Number [facility] [address] Department of [employer] [address] [place], [place] [phone] * (ABNORMAL) Urine culture Urine (09/13/2024 9:45 AM FINANCIAL ASSISTANCE SPECIALIST) Report Final Report: Greater than or equal to 100,000 colonies/ml of Lactobacillus species Susceptibility not performed on this isolate (.) Organism LACTOBACILLUS SPECIES [facility] Urine 09/13/2024 9:45 AM FINANCIAL ASSISTANCE SPECIALIST 09/13/2024 11:49 AM FINANCIAL ASSISTANCE SPECIALIST Narrative [facility] - 09/15/2024 12:40 PM FINANCIAL ASSISTANCE SPECIALIST Urine culture reflexed based upon urinalysis results. Flo Villagran MD LAB MICROBIOLOGY - GENERAL O RDERABLES Final Result Performing Organization Address [facility] de Phone Number [facility] [address] [place] [address] * Ammonia (09/13/2024 9:45 AM FINANCIAL ASSISTANCE SPECIALIST) Pathologist [facility] Ammonia 14 <=50 mcmol/L Blood 09/13/2024 9:45 AM FINANCIAL ASSISTANCE SPECIALIST 09/13/2024 10:14 AM FINANCIAL ASSISTANCE SPECIALIST Flo Villagran MD LAB BLOOD ORDERABLES Final R esult Performing Organization Address [facility] Co de Phone Number [facility] [address] Department [place] [address] * POCT glucose (09/13/2024 9:31 AM FINANCIAL ASSISTANCE SPECIALIST) Pathologist [facility] Glucose, POC 170 70 - 199 mg/dL Comment: For Glucose values <35 mg/dl when Hematocrit is >60 mg/dl,the test may not accurately detect significant hypoglycemia,and testing in the Laboratory should be considered if clinically indicated. Blood 09/13/2024 9:31 AM FINANCIAL ASSISTANCE SPECIALIST 09/13/2024 9:31 AM FINANCIAL ASSISTANCE SPECIALIST Abeba Ash MD LAB POCT ORDERABLES - DEVICE Final Result Performing Organization Address [facility] Co de Phone Number [facility] [address] [place] [address] * Lipase - Add on lab test (09/13/2024 9:25 AM FINANCIAL ASSISTANCE SPECIALIST) [facility] Acceptable Yes Blood 09/13/2024 9:25 AM FINANCIAL ASSISTANCE SPECIALIST 09/13/2024 9:25 AM FINANCIAL ASSISTANCE SPECIALIST Narrative [facility] - 09/13/2024 9:26 AM FINANCIAL ASSISTANCE SPECIALIST Name of Test->Lipase us Flo Villagran MD LAB BLOOD ORDERABLES Final R esult Performing Organization Address [facility] Co de Phone Number [facility] [address] Department [place] [address] * Amylase - Add on lab test (09/13/2024 9:25 AM FINANCIAL ASSISTANCE SPECIALIST) Pathologist [facility] Acceptable Yes Blood 09/13/2024 9:25 AM FINANCIAL ASSISTANCE SPECIALIST 09/13/2024 9:25 AM FINANCIAL ASSISTANCE SPECIALIST Narrative [facility] - 09/13/2024 9:26 AM FINANCIAL ASSISTANCE SPECIALIST Name of Test->Amylase Flo Villagran MD LAB BLOOD ORDERABLES Final R esult Performing Organization Address [facility] Co de Phone Number [facility] [address] [place] [address] * XR Chest 1 Vw (09/13/2024 8:30 AM FINANCIAL ASSISTANCE SPECIALIST) Anatomical Region Laterality Modality Body, Chest N/A Computed Radiogr aphy 09/13/2024 9:34 AM FINANCIAL ASSISTANCE SPECIALIST Impressions 09/13/2024 9:34 AM FINANCIAL ASSISTANCE SPECIALIST Gastric tube tip overlies the gastric body, side port overlies the gastric antrum, possibly kinked at the side port. Patchy left retrocardiac opacities could reflect atelectasis, aspiration, or pneumonia. No pneumothorax or pleural effusion. Heart size and mediastinal contours normal Electronically signed by: Ana Luisa Benson M.D. Narrative 09/13/2024 9:34 AM FINANCIAL ASSISTANCE SPECIALIST EXAMINATION: Chest 1 view. HISTORY: Check tube [...] lt * (ABNORMAL) eGFR (09/13/2024 8:11 AM FINANCIAL ASSISTANCE SPECIALIST) eGFR 46(L) >=60 mL/min/1. 73 m2 Comment: [...] last reviewed 2021. Blood 09/13/2024 8:11 AM FINANCIAL ASSISTANCE SPECIALIST 09/13/2024 8:21 AM FINANCIAL ASSISTANCE SPECIALIST Abeba Ash MD LAB BLOOD ORDERABLES Final R esult Performing Organization Address City/[facility]/ZIP Co de Phone Number [facility] [address] [employer] [place], [place] [phone] * Beta-hydroxybutyrate (09/13/2024 8:11 AM FINANCIAL ASSISTANCE SPECIALIST) Beta-Hydroxybut yrate 0.5 <=0.5 mmol/L Blood 09/13/2024 8:11 AM FINANCIAL ASSISTANCE SPECIALIST 09/13/2024 8:16 AM FINANCIAL ASSISTANCE SPECIALIST Abbea Ash MD LAB BLOOD ORDERABLES Final R esult Performing Organization Address [facility] Co de Phone Number [facility] [address] [facility] [employer] [place], [place] [phone] * (ABNORMAL) aPTT (09/13/2024 8:11 AM FINANCIAL ASSISTANCE SPECIALIST) aPTT 72(H) 28 - 38 sec Comment: Interpretive Data Heparin therapeutic range: 66.0 - 100.0 seconds. Range based on correlation with therapeutic heparin activity range of 0.3 - 0.7 Units/mL. Current interpretive data was last revised on 2023. Blood 09/13/2024 8:11 AM FINANCIAL ASSISTANCE SPECIALIST 09/13/2024 8:21 AM FINANCIAL ASSISTANCE SPECIALIST Abeba Ash MD LAB BLOOD ORDERABLES Final R esult Performing Organization Address [facility] Co de Phone Number [facility] [address] Department [employer] [place], [place] [phone] * (ABNORMAL) Phosphorus (09/13/2024 8:11 AM FINANCIAL ASSISTANCE SPECIALIST) Phosphorus, pl 2.1(L) 2.3 - 4.5 mg/dL Blood 09/13/2024 8:11 AM FINANCIAL ASSISTANCE SPECIALIST 09/13/2024 8:16 AM FINANCIAL ASSISTANCE SPECIALIST Abeba Ash MD LAB BLOOD ORDERABLES Final R esult Performing Organization Address [facility] Co de Phone Number [facility] [address] Department [place] [address] * Magnesium (09/13/2024 8:11 AM FINANCIAL ASSISTANCE SPECIALIST) Pathologist [facility] Magnesium 1.9 1.4 - 2.5 mg/dL Blood 09/13/2024 8:11 AM FINANCIAL ASSISTANCE SPECIALIST 09/13/2024 8:16 AM FINANCIAL ASSISTANCE SPECIALIST Abeba Ash MD LAB BLOOD ORDERABLES Final R esult Performing Organization Address [facility] Co de Phone Number [facility] [address] [place] [address] * Lipase (09/13/2024 8:11 AM FINANCIAL ASSISTANCE SPECIALIST) Pathologist [facility] Lipase 25 10 - 99 Units/L Blood 09/13/2024 8:11 AM FINANCIAL ASSISTANCE SPECIALIST 09/13/2024 8:21 AM FINANCIAL ASSISTANCE SPECIALIST Abeba Ash MD LAB BLOOD ORDERABLES Final R esult Performing Organization Address [facility] Co de Phone Number [facility] [address] Department [place] [address] * Amylase (09/13/2024 8:11 AM FINANCIAL ASSISTANCE SPECIALIST) Pathologist [facility] Amylase 48 30 - 99 Units/L Blood 09/13/2024 8:11 AM FINANCIAL ASSISTANCE SPECIALIST 09/13/2024 8:21 AM FINANCIAL ASSISTANCE SPECIALIST Abeba Ash MD LAB BLOOD ORDERABLES Final R esult Performing Organization Address City/[facility]/ZIP Co de Phone Number [facility] [address] [place] [address] * (ABNORMAL) Basic metabolic panel (09/13/2024 8:11 AM FINANCIAL ASSISTANCE SPECIALIST) Sodium 147(H) 135 - 145 mmol/L Potassium, pl 3.7 3.3 - 4.9 mmol/L [facility] Chloride 112(H) 97 - 110 mmol/L [facility] CO2 21(L) 22 - 32 mmol/L [facility] Anion gap 14 2 - 15 mmol/L [facility] BUN 49(H) 6 - 25 mg/dL [facility] Creatinine 1.40(H) 0.60 - 1.10 mg/dL [facility] Glucose 147 70 - 199 mg/dL [facility] Comment: Interpretive Data Fasting glucose >/= 126 [...] 8.5 - 10.3 mg/dL [facility] Blood 09/13/2024 8:11 AM FINANCIAL ASSISTANCE SPECIALIST 09/13/2024 8:16 AM FINANCIAL ASSISTANCE SPECIALIST Abeba Ash MD LAB BLOOD ORDERABLES Final R esult Performing Organization Address City/[facility]/ZIP Co de Phone Number [facility] [address] [place] [address] * (ABNORMAL) Blood gas, arterial (09/13/2024 7:58 AM FINANCIAL ASSISTANCE SPECIALIST) pH, Art 7.38 7.35 - 7.45 PCO2, Arterial 39 35 - 45 mmHg [facility] PO2, Arterial 76(L) 83 - 108 mmHg [facility] HCO3 Art (Calculated) 23 20 - 30 mmol/L [facility] BE, art -2 mmol/L [facility] Comment: Interpretive Data No Reference Range Established Current Interpretive Data was last revised on 2017 O2 Sat Art (Calculated) 95 94 - 98 % [facility] Blood 09/13/2024 7:58 AM FINANCIAL ASSISTANCE SPECIALIST 09/13/2024 8:02 AM FINANCIAL ASSISTANCE SPECIALIST us Flo Villagran MD LAB BLOOD ORDERABLES Final R esult Performing Organization Address City/[facility]/ZIP Co de Phone Number [facility] [address] [facility] [place] [address] * POCT glucose (09/13/2024 7:54 AM FINANCIAL ASSISTANCE SPECIALIST) Glucose, POC 157 70 - 199 mg/dL Comment: For Glucose values <35 mg/dl when Hematocrit is >60 mg/dl,the test may not accurately detect significant hypoglycemia,and testing in the Laboratory should be considered if clinically indicated. Blood 09/13/2024 7:54 AM FINANCIAL ASSISTANCE SPECIALIST 09/13/2024 7:54 AM FINANCIAL ASSISTANCE SPECIALIST us Abeba Ash MD LAB POCT ORDERABLES - DEVICE Final Result Performing Organization Address [facility]/ZIP Co de Phone Number [facility] [address] [facility] [place] [address] * POCT glucose (09/13/2024 6:04 AM FINANCIAL ASSISTANCE SPECIALIST) Glucose, POC 149 70 - 199 mg/dL Comment: For Glucose values <35 mg/dl when Hematocrit is >60 mg/dl,the test may not accurately detect significant hypoglycemia,and testing in the Laboratory should be considered if clinically indicated. Blood 09/13/2024 6:04 AM FINANCIAL ASSISTANCE SPECIALIST 09/13/2024 6:04 AM FINANCIAL ASSISTANCE SPECIALIST Abeba Ash MD LAB POCT ORDERABLES - DEVICE Final Result [facility] [address] Department [place] [address] * (ABNORMAL) Blood culture Blood (09/13/2024 5:22 AM FINANCIAL ASSISTANCE SPECIALIST) Direct Specimen Exam Molecular Analysis: Staphylococcus aureus, methicillin-suscep tible (MSSA) detected by the [facility] Blood Culture Identification Panel. This test does not exclude the possibility of a mixed bacterial infection. Please consider this result in the context of clinical findings and evaluate the possibility of antimicrobial de-escalation. Test result called to and read back by Ceferino Grier RN on 09/13/2024 22:28:52 by [id number] Direct Specimen Exam Stain: Gram Positive Cocci in clusters [facility] Report Final Report: Staphylococcus aureus, methicillin susceptible (.) [facility] Organism STAPHYLOCOCCUS AUREUS, METHICILLIN SUSCEPTIBLE [facility] Blood 09/13/2024 5:22 AM FINANCIAL ASSISTANCE SPECIALIST 09/13/2024 5:48 AM FINANCIAL ASSISTANCE SPECIALIST Narrative [facility] - 09/15/2024 7:42 AM FINANCIAL ASSISTANCE SPECIALIST From a different site than #1. Collection->Peripheral [...] organism identification may be performed using the [employer] Blood Culture Identification panel. This assay detects microbial DNA in a blood culture broth. This assay has been cleared by the [place] Food and Drug Administration and its performance characteristics have been verified by the [facility]. Interpretive data was last revised [...] O RDERABLES Final Result Performing Organization Address [facility] Co de Phone Number [facility] [address] [facility] [place] [address] * POCT glucose (09/13/2024 5:06 AM FINANCIAL ASSISTANCE SPECIALIST) Glucose, POC 152 70 - 199 mg/dL Comment: For Glucose values <35 mg/dl when Hematocrit is >60 mg/dl,the test may not accurately detect significant hypoglycemia,and testing in the Laboratory should be considered if clinically indicated. Blood 09/13/2024 5:06 AM FINANCIAL ASSISTANCE SPECIALIST 09/13/2024 5:06 AM FINANCIAL ASSISTANCE SPECIALIST Abeba Ash MD LAB POCT ORDERABLES - DEVICE Final Result Performing Organization Address [facility] Co de Phone Number [facility] [address] [place] [place] [address] * POCT glucose (09/13/2024 4:05 AM FINANCIAL ASSISTANCE SPECIALIST) Glucose, POC 189 70 - 199 mg/dL Comment: For Glucose values <35 mg/dl when Hematocrit is >60 mg/dl,the test may not accurately detect significant hypoglycemia,and testing in the Laboratory should be considered if clinically indicated. Blood 09/13/2024 4:05 AM FINANCIAL ASSISTANCE SPECIALIST 09/13/2024 4:05 AM FINANCIAL ASSISTANCE SPECIALIST Abeba Ash MD LAB POCT ORDERABLES - DEVICE Final Result Performing Organization Address [facility] Co de Phone Number [facility] [address] [facility] [place] [address] * CT Head WO Contrast (09/13/2024 3:40 AM FINANCIAL ASSISTANCE SPECIALIST) Anatomical Region Laterality Modality Head and Neck N/A Computed Tomogra phy 09/13/2024 3:31 AM FINANCIAL ASSISTANCE SPECIALIST Addenda Addendum by Zion Rodriguez MD on 09/13/2024 7:20 AM FINANCIAL ASSISTANCE SPECIALIST The Non Critical results were discussed with Dr. Flo Villagran by Wei Godinez, Protective Services Social Worker on 09/13/2024 at 7:16 Edited by: Wei Godinez Electronically signed by: Zion Rodriguez M.D. Impressions 09/13/2024 6:55 AM FINANCIAL ASSISTANCE SPECIALIST 1. Small lucency in the right thalamus suspicious for age indeterminate lacunar infarct, new compared to CT 09/22/2021. If there is concern for acute infarct further evaluation can be made with MRI. 2. Otherwise no CT evidence of acute intracranial abnormality. 3. Hyperdense material in the right globe likely intraocular silicone and postoperative in nature. Correlate with history. For the purposes of quality facilitator, this study was initially interpreted by teleradiology. There is a non-emergent discrepancy that does not immediately impact patient care. Electronically signed by: Zion Rodriguez M.D. Narrative 09/13/2024 6:55 AM FINANCIAL ASSISTANCE SPECIALIST EXAM:CT HEAD WO CONTRAST INDICATION: Right pupil [...] with history. For the purposes of quality facilitator, this study was initially interpreted by teleradiology. There is a non-emergent discrepancy that does not immediately impact patient care. Electronically signed by: Zion Rodriguez M.D. Abeba Ash MD IMG CT PROCEDURES Edited Res ult - Final * (ABNORMAL) POCT glucose (09/13/2024 3:15 AM FINANCIAL ASSISTANCE SPECIALIST) Glucose, POC 283(H) 70 - 199 mg/dL Comment: For Glucose values <35 mg/dl when Hematocrit is >60 mg/dl,the test may not accurately detect significant hypoglycemia,and testing in the Laboratory should be considered if clinically indicated. Blood 09/13/2024 3:15 AM FINANCIAL ASSISTANCE SPECIALIST 09/13/2024 3:15 AM FINANCIAL ASSISTANCE SPECIALIST Abeba Ash MD LAB POCT ORDERABLES - DEVICE Final Result [facility] [address] [place] [address] * (ABNORMAL) Urinalysis reflex to microscopic and culture Urine (09/13/2024 2:59 AM FINANCIAL ASSISTANCE SPECIALIST) Color, ur Yellow Yellow Clarity, ur Turbid(A) Clear [facility] Specific gravity, ur 1.016 1.003 - 1.030 [facility] pH, urine 5.5 [facility] Comment: Interpretive Data U rine pH is affected by diet, medications, systemic acid-base disturbances, and renal tubular function. pH may affect urinary stone formation. For example, urine pH below 6.0 may help reduce the tendency for calcium phosphate stones and pH greater than 6.0 may reduce the tendency for uric acid stone formation. Source: [facility] Current Interpretive Data was last revised on 2017 Protein, ur ql 1+(A) Negative [facility] Glucose, ur ql 4+(A) Negative [facility] Ketones, ur 2+(A) Negative [facility] Bilirubin, ur Negative Negative [facility] Blood, ur Trace(A) Negative [facility] Urobilinogen, ur <2.0 <2.0 mg/dL [facility] Nitrite, ur Negative Negative [facility] Leukocyte esterase, ur 4+(A) Negative [facility] UA reflex comment Reflex to microscopic UA will be performed. [facility] Urine 09/13/2024 2:59 AM FINANCIAL ASSISTANCE SPECIALIST 09/13/2024 3:04 AM FINANCIAL ASSISTANCE SPECIALIST us Abeba Ash MD LAB MICROBIOLOGY - GENERAL O RDERABLES Final Result [facility] [address] Department [place] [address] * (ABNORMAL) Urinalysis, microscopic only (09/13/2024 2:59 AM FINANCIAL ASSISTANCE SPECIALIST) WBC, ur 21-50(A) 0 - 5 /HPF RBC, ur >50(A) 0 - 2 /HPF [facility] Epithelial cells, squamous, ur 6-10(A) 0 - 5 /HPF [facility] Comment:Suggestive of contam ination. Consider recollection by clean catch. Bacteria, ur 4+(A) [facility] Culture Reflex Comment Reflex to urine culture will be performed. [facility] Urine 09/13/2024 2:59 AM FINANCIAL ASSISTANCE SPECIALIST 09/13/2024 3:32 PM FINANCIAL ASSISTANCE SPECIALIST Abeba Ash MD LAB URINE ORDERABLES Final R esult Performing Organization Address [facility] Co de Phone Number [facility] [address] [facility] [address] [place], [place] [id number] * (ABNORMAL) Urine culture Urine (09/13/2024 2:59 AM FINANCIAL ASSISTANCE SPECIALIST) Report Final Report: Greater than or equal to 100,000 colonies/ml of Lactobacillus species Susceptibility not performed on this isolate (.) Organism LACTOBACILLUS SPECIES [facility] Urine 09/13/2024 2:59 AM FINANCIAL ASSISTANCE SPECIALIST 09/13/2024 3:41 PM FINANCIAL ASSISTANCE SPECIALIST Narrative [facility] - 09/14/2024 12:08 PM FINANCIAL ASSISTANCE SPECIALIST Urine culture reflexed based upon urinalysis results. Abeba Ash MD LAB MICROBIOLOGY - GENERAL O RDERABLES Final Result Performing Organization Address [facility] de Phone Number [facility] [address] [place] [address] * (ABNORMAL) POCT glucose (09/13/2024 2:03 AM FINANCIAL ASSISTANCE SPECIALIST) Glucose, POC 260(H) 70 - 199 mg/dL Comment: For Glucose values <35 mg/dl when Hematocrit is >60 mg/dl,the test may not accurately detect significant hypoglycemia,and testing in the Laboratory should be considered if clinically indicated. Blood 09/13/2024 2:03 AM FINANCIAL ASSISTANCE SPECIALIST 09/13/2024 2:03 AM FINANCIAL ASSISTANCE SPECIALIST Abeba Ash MD LAB POCT ORDERABLES - DEVICE Final Result Performing Organization Address [facility] Co de Phone Number [facility] [address] Department [address] [place], [place] [phone] * ECG 12 lead (09/13/2024 1:58 AM FINANCIAL ASSISTANCE SPECIALIST) 09/13/2024 1:58 AM FINANCIAL ASSISTANCE SPECIALIST Narrative [facility] - 09/13/2024 9:32 PM FINANCIAL ASSISTANCE SPECIALIST Vent Rate: 134 bpm RR Interval: 445 msec W[place] Interval: 118 msec QRS Duration: 87 msec QT Interval: 331 msec QTC Interval: 410 msec P-R-T [place]: 66 - -15 - 124 degrees IMPRESSION: SINUS TACHYCARDIA WITH SHORT WY INTERVAL ST DEVIATION AND MODERATE T-WAVE ABNORMALITY, CONSIDER LATERAL ISCHEMIA ABNORMAL ECG Electronically Signed By: Rene Nicole MD us Abeba Ash MD ECG ORDERABLES Final Result [facility] * (ABNORMAL) Respiratory pathogen panel Nasopharyngeal (09/13/2024 1:50 AM FINANCIAL ASSISTANCE SPECIALIST) Influenza A/2009 RNA Detected(A) Not Detected [facility] Influenza B RNA Not Detected Not Detected [facility] RSV RNA Not Detected Not Detected [facility] COVID-19 RNA Not Detected Not Detected [facility] Coronavirus 229E RNA Not Detected Not Detected [facility] Coronavirus HKU1 RNA Not Detected Not Detected [facility] Coronavirus NL63 RNA Not Detected Not Detected [facility] Coronavirus OC43 RNA Not Detected Not Detected [facility] Adenovirus DNA Not Detected Not Detected [facility] Metapneumovirus RNA Not Detected Not Detected [facility] Rhinovirus/Enterov irus RNA Not Detected Not Detected [facility] Parainfluenza 1 RNA Not Detected Not Detected [facility] Parainfluenza 2 RNA Not Detected Not Detected [facility] Parainfluenza 3 RNA Not Detected Not Detected [facility] Parainfluenza 4 RNA Not Detected Not Detected [facility] B. pertussis DNA Not Detected Not Detected [facility] B. parapertussis DNA Not Detected Not Detected [facility] C. pneumoniae DNA Not Detected Not Detected [facility] M. pneumoniae DNA Not Detected Not Detected [facility] Comment: Interpretive Data The [employer] FilmArray Respiratory Panel (RP2.1) assay is a [...] assay has FDA clearance for testing of MARKETING SERVICES SPECIALIST swabs. The performance characteristics of this assay have been determined by [facility]. Current interpretive data was last revised on 2021. Nasopharyngeal 09/13/2024 1: 50 AM FINANCIAL ASSISTANCE SPECIALIST 09/13/2024 2:04 AM FINANCIAL ASSISTANCE SPECIALIST William [facility] - 09/13/2024 2:57 AM FINANCIAL ASSISTANCE SPECIALIST Is the Patient experiencing symptoms consistent with COVID?->Yes Surveillance testing for transplant patient?->No Abeba Ash MD LAB MICROBIOLOGY - GENERAL O RDERABLES Final Result [facility] [address] Department [place] [address] MBC * (ABNORMAL) Blood culture Blood (09/13/2024 1:50 AM FINANCIAL ASSISTANCE SPECIALIST) Direct Specimen Exam Stain: Gram Positive Cocci in clusters Test result called to and read back by Sandra Joiner RN on 09/14/2024 12:27:01 by PDC. Report Final Report: Staphylococcus aureus, methicillin susceptible Susceptibility reported on this organism on previous culture [id number] (.) [facility] Organism STAPHYLOCOCCUS AUREUS, METHICILLIN SUSCEPTIBLE [facility] Blood 09/13/2024 1:50 AM FINANCIAL ASSISTANCE SPECIALIST 09/13/2024 2:17 AM FINANCIAL ASSISTANCE SPECIALIST Narrative [facility] - 09/15/2024 10:49 AM FINANCIAL ASSISTANCE SPECIALIST Collection->Peripheral Interpretive Data 1. Blood cultures are incubated and monitored continuously for 5 days (120 hours). The first negative report is issued within 24 hours of receipt in the laboratory. 2. All positive cultures are resulted and called to physicians/care providers as soon as they are detected. 3. A rapid molecular test for organism identification may be performed using the [employer] Blood Culture Identification panel. This assay detects microbial DNA in a blood culture broth. This assay has been cleared by the [place] Food and Drug Administration and its performance characteristics have been verified by the [facility]. Interpretive data was last revised on September 11, 2022. us Abeba Ash MD LAB MICROBIOLOGY - GENERAL O RDERABLES Final Result [facility] [address] Department [place] [address] * (ABNORMAL) Troponin T high-sensitivity (09/13/2024 1:46 AM FINANCIAL ASSISTANCE SPECIALIST) Trop T hs 116(H) <=14 ng/L Comment: Interpretive Data For further hscTnT resources including the diagnostic algorithm and an aid in interpretation, copy and paste this link: [email or web address].testcatalog.[email or web address] Current Interpretive Data last revised 2020. Blood 09/13/2024 1:46 AM FINANCIAL ASSISTANCE SPECIALIST 09/13/2024 1:53 AM FINANCIAL ASSISTANCE SPECIALIST Abeba Ash MD LAB BLOOD ORDERABLES Final R esult Performing Organization Address City/[facility]/ZIP Co de Phone Number [facility] [address] Department of [address] [place], [place] [id number] * (ABNORMAL) Lactate (09/13/2024 1:46 AM FINANCIAL ASSISTANCE SPECIALIST) Lactate 2.6(H) 0.7 - 2.0 mmol/L Blood 09/13/2024 1:46 AM FINANCIAL ASSISTANCE SPECIALIST 09/13/2024 1:51 AM FINANCIAL ASSISTANCE SPECIALIST Abeba Ash MD LAB BLOOD ORDERABLES Final R esult Performing Organization Address [facility] Co de Phone Number [facility] [address] Department of [address] [place], [place] [id number] * (ABNORMAL) eGFR (09/13/2024 1:46 AM FINANCIAL ASSISTANCE SPECIALIST) eGFR 44(L) >=60 mL/min/1. 73 m2 Comment: [...] last reviewed 2021. Blood 09/13/2024 1:46 AM FINANCIAL ASSISTANCE SPECIALIST 09/13/2024 1:53 AM FINANCIAL ASSISTANCE SPECIALIST us Abeba Ash MD LAB BLOOD ORDERABLES Final R esult [facility] [address] Department [place] [address] * (ABNORMAL) Differential, auto (09/13/2024 1:46 AM FINANCIAL ASSISTANCE SPECIALIST) Neutrophil abs 6.6(H) 1.5 - 6.5 K/cumm Imm gran abs 0.0 0.0 - 0.1 K/cumm [facility] Lymphocyte abs 0.5(L) 0.8 - 3.3 K/cumm [facility] Monocyte abs 0.7 0.2 - 0.8 K/cumm [facility] Eosinophil abs 0.0 0.0 - 0.5 K/cumm [facility] Basophil abs 0.0 0.0 - 0.1 K/cumm [facility] Neutrophil pct 84.7 % [facility] Comment: Interpretive Data Percent cell count reference ranges are not reported, since discordance with absolute values may lead to misinterpretation of CBC data. Current Interpretive Data was last revised on 2017. Imm gran pct 0.5 % [facility] Comment: Interpretive Data Percent cell count reference ranges are not reported, since discordance with absolute values may lead to misinterpretation of CBC data. Current Interpretive Data was last revised on 2017. Lymphocyte pct 5.8 % [facility] Comment: Interpretive Data Percent cell count reference ranges are not reported, since discordance with absolute values may lead to misinterpretation of CBC data. Current Interpretive Data was last revised on 2017. Monocyte pct 8.9 % [facility] Comment: Interpretive Data Percent cell count reference ranges are not reported, since discordance with absolute values may lead to misinterpretation of CBC data. Current Interpretive Data was last revised on 2017. Eosinophil pct 0.0 % [facility] Comment: Interpretive Data Percent cell count reference ranges are not reported, since discordance with absolute values may lead to misinterpretation of CBC data. Current Interpretive Data was last revised on 2017. Basophil pct 0.1 % [facility] Comment: Interpretive Data Percent cell count reference ranges are not reported, since discordance with absolute values may lead to misinterpretation of CBC data. Current Interpretive Data was last revised on 2017. Blood 09/13/2024 1:46 AM FINANCIAL ASSISTANCE SPECIALIST 09/13/2024 1:53 AM FINANCIAL ASSISTANCE SPECIALIST us Abeba Ash MD LAB BLOOD ORDERABLES Final R esult [facility] [address] Department [place] [address] * (ABNORMAL) Pro B-type natriuretic peptide (09/13/2024 1:46 AM FINANCIAL ASSISTANCE SPECIALIST) NT-proBNP 6,745(H) <=300 pg/mL Comment: Interpretive Comments: [...] Revised Date: 2018. Blood 09/13/2024 1:46 AM FINANCIAL ASSISTANCE SPECIALIST 09/13/2024 1:53 AM FINANCIAL ASSISTANCE SPECIALIST us Abeba Ash MD LAB BLOOD ORDERABLES Final R esult Performing Organization Address City/[facility]/ZIP Co de Phone Number [facility] [address] Department [place] [address] * (ABNORMAL) CBC with auto differential (09/13/2024 1:46 AM FINANCIAL ASSISTANCE SPECIALIST) WBC 7.7 3.8 - 9.9 K/cumm Hgb 11.9 11.9 - 15.5 g/dL [facility] Hct 39.4 35.6 - 45.5 % [facility] Plt 111(L) 150 - 400 K/cumm [facility] MPV 12.8(H) 9.1 - 12.3 fL [facility] RBC 4.15 3.90 - 5.20 M/cumm [facility] MCV 94.9 81.3 - 96.4 fL [facility] MCH 28.7 27.1 - 33.3 pg [facility] MCHC 30.2(L) 32.3 - 35.7 g/dL [facility] RDW CV 14.6 11.1 - 14.9 % [facility] RDW SD 50.7(H) 35.7 - 48.1 fL [facility] NRBC abs 0.00 0.00 - 0.01 K/cumm [facility] Blood 09/13/2024 1:46 AM FINANCIAL ASSISTANCE SPECIALIST 09/13/2024 1:53 AM FINANCIAL ASSISTANCE SPECIALIST Abeba Ash MD LAB BLOOD ORDERABLES Final R esult [facility] [address] Department [address] [place], [place] [phone] * (ABNORMAL) aPTT (09/13/2024 1:46 AM FINANCIAL ASSISTANCE SPECIALIST) aPTT 25(L) 28 - 38 sec Comment: Interpretive Data Heparin therapeutic range: 66.0 - 100.0 seconds. Range based on correlation with therapeutic heparin activity range of 0.3 - 0.7 Units/mL. Current interpretive data was last revised on 2023. Blood 09/13/2024 1:46 AM FINANCIAL ASSISTANCE SPECIALIST 09/13/2024 1:53 AM FINANCIAL ASSISTANCE SPECIALIST Abeba Ash MD LAB BLOOD ORDERABLES Final R [facility] Performing Organization Address [facility] de Phone Number [facility] [address] [facility] [place] [address] * Protime-INR (09/13/2024 1:46 AM FINANCIAL ASSISTANCE SPECIALIST) Pathologist [facility] PT 10.0 9.7 - 13.0 sec INR 0.93 0.90 - 1.20 [facility] Comment: Interpretive data Oral anticoagulant therapeutic ranges: Venous thromboembolism prophylaxis or treatment: 2.0-3.0 CARDIOLOGY Standard range: 2.0-3.0 High-intensity range: 2.5-3.5 Refer to indication-specific guidelines for appropriate target ranges for prosthetic heart valve replacement. Current interpretive data was last revised on 2019. Blood 09/13/2024 1:46 AM FINANCIAL ASSISTANCE SPECIALIST 09/13/2024 1:53 AM FINANCIAL ASSISTANCE SPECIALIST Abeba Ash MD LAB BLOOD ORDERABLES Final R [facility] Performing Organization Address [facility] Co de Phone Number [facility] [address] [facility] [place] [address] * Type and screen (09/13/2024 1:46 AM FINANCIAL ASSISTANCE SPECIALIST) ABO Rh A Positive Charles, indirect Negative [facility] Blood 09/13/2024 1:46 AM FINANCIAL ASSISTANCE SPECIALIST 09/13/2024 1:51 AM FINANCIAL ASSISTANCE SPECIALIST Narrative [facility] - 09/13/2024 2:31 AM FINANCIAL ASSISTANCE SPECIALIST Has the patient had Daratumumab or Isatuximab in the past 6 months?->Unknown Abeba Ash MD LAB BLOOD BANK TEST ORDERABL ES Final Result Performing Organization Address [facility] Co de Phone Number [facility] [address] [place] [address] * Phosphorus (09/13/2024 1:46 AM FINANCIAL ASSISTANCE SPECIALIST) Pathologist [facility] Phosphorus, pl 2.7 2.3 - 4.5 mg/dL Blood 09/13/2024 1:46 AM FINANCIAL ASSISTANCE SPECIALIST 09/13/2024 1:53 AM FINANCIAL ASSISTANCE SPECIALIST Abeba Ash MD LAB BLOOD ORDERABLES Final R esult Performing Organization Address [facility] Co de Phone Number [facility] [address] [place] [address] * Magnesium (09/13/2024 1:46 AM FINANCIAL ASSISTANCE SPECIALIST) [facility] Magnesium 2.1 1.4 - 2.5 mg/dL Blood 09/13/2024 1:46 AM FINANCIAL ASSISTANCE SPECIALIST 09/13/2024 1:53 AM FINANCIAL ASSISTANCE SPECIALIST Abeba Ash MD LAB BLOOD ORDERABLES Final R esult Performing Organization Address [facility] Co de Phone Number [facility] [address] [facility] [place] [address] * (ABNORMAL) Hemoglobin A1c (09/13/2024 1:46 AM FINANCIAL ASSISTANCE SPECIALIST) Hgb A1C 9.1(H) 4.0 - 5.6 % Estimated Average Glucose 214 mg/dL [facility] Comment: The ADA recommends reporting an estimated Average Glucose (eAG) with all Hemoglobin A1c results using the equation derived from a study of 507 normal and diabetic adults. Minority populations were underrepresented and children were not included. (Diabetes Care 31:2552-9579, 2008). The eAG is not equivalent to a fasting glucose. Blood 09/13/2024 1:46 AM FINANCIAL ASSISTANCE SPECIALIST 09/13/2024 1:53 AM FINANCIAL ASSISTANCE SPECIALIST us Abeba Ash MD LAB BLOOD ORDERABLES Final R esult [facility] [address] Department [place] [address] * (ABNORMAL) Comprehensive metabolic panel (09/13/2024 1:46 AM FINANCIAL ASSISTANCE SPECIALIST) Sodium 151(H) 135 - 145 mmol/L Potassium, pl 4.0 3.3 - 4.9 mmol/L [facility] Chloride 110 97 - 110 mmol/L [facility] CO2 20(L) 22 - 32 mmol/L [facility] Anion gap 21(H) 2 - 15 mmol/L [facility] BUN 47(H) 6 - 25 mg/dL [facility] Creatinine 1.47(H) 0.60 - 1.10 mg/dL [facility] Glucose 264(H) 70 - 199 mg/dL [facility] Comment: Interpretive Data Fasting glucose >/= 126 [...] 8.5 - 10.3 mg/dL [facility] Bilirubin, total 0.3 0.1 - 1.2 mg/dL [facility] Protein, pl 7.0 6.5 - 8.5 g/dL [facility] Albumin 3.4(L) 3.5 - 5.0 g/dL [facility] Alk phos 202(H) 40 - 130 Units/L [facility] ALT 48(H) 7 - 45 Units/L [facility] AST 45 10 - 45 Units/L [facility] Blood 09/13/2024 1:46 AM FINANCIAL ASSISTANCE SPECIALIST 09/13/2024 1:53 AM FINANCIAL ASSISTANCE SPECIALIST Abeba Ash MD LAB BLOOD ORDERABLES Final R esult Performing Organization Address [facility] Co de Phone Number [facility] [address] Department [place] [address] * (ABNORMAL) POCT glucose (09/13/2024 1:30 AM FINANCIAL ASSISTANCE SPECIALIST) Glucose, POC 248(H) 70 - 199 mg/dL Comment: For Glucose values <35 mg/dl when Hematocrit is >60 mg/dl,the test may not accurately detect significant hypoglycemia,and testing in the Laboratory should be considered if clinically indicated. Blood 09/13/2024 1:30 AM FINANCIAL ASSISTANCE SPECIALIST 09/13/2024 1:30 AM FINANCIAL ASSISTANCE SPECIALIST Abeba Ash MD LAB POCT ORDERABLES - DEVICE Final Result Performing Organization Address [facility] Co de Phone Number [facility] [address] Department [place] [address] * COLONOSCOPY REPORT (06/07/2014) Anatomical Region Laterality Modality Other Narrative 06/07/2014 Ordered by an unspecified provider. Historical Provider GI PROCEDURE ORDERABLES F inal Result from Last 3 Months or Most Recently Relevant to Health Maintenance Insurance [facility] MEDICARE ADVANTAGE [facility] Address: [address] [address] [place] [address] [facility] HEALTH [facility] HEALTH [place] [facility] MEDICARE ADVANTAGE [facility] Address: [address] [address] [place] [address] IDPA IDPA [facility] MEDICARE ADVANTAGE [facility] Address: [address] [address] [place] [address] MEDICARE Advance Directives For more information, please contact: [phone] Documents on File Type Date Recorded 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
--- OUTSIDE RECORDS SUMMARY | 2024-12-08 16:10 | XMS_ITS | Clinical Summary ---
Author Organization [facility] Address [address] [place] [address] Care Team Providers Care Bacteriology Teacher Name Role Phone Clement Pinto APRN-LEAN CONSULTANT Primary Care Provider [phone] Source Comments [facility],non-owned Affiliates and Associated Physician Practices is amultiple site organization consisting of ambulatory clinics and hospital sitesin [place], [place], [place] and [place]. This disclosure is being madepursuant to the Care Everywhere program and may not contain all information available regarding this patient. Last updated 18.[facility] Allergies Active Allergy Reactions Criticality Noted Date Comments Codeine Itching Medium 10/18/2015 Erythromycin Vomiting 10/18/2015 Cephalexin Urticaria High 10/18/2015 hives Medications * Be aware that medications may not be up to date on this document. Alwaysverify current medications with the patient. insulin detemir (LEVEMIR) vial Inject 46 (forty six) Units subcutaneously as directed Active insulin aspart (NOVOLOG) vial Inject subcutaneously as directed Active atorvastatin (Lipitor) 80 MG tablet Take 1 (one) tablet by mouth at bedtime Active cetirizine (ZyrTEC) 10 MG tablet 1 (one) tablet once daily Active rivaroxaban (Xarelto) 20 MG tablet 12/24/19 23 Active metoprolol succinate XL 24hr (Toprol XL) [...] each main meal (with THE first bite) 04/20/20 Active celecoxib (CeleBREX) 200 MG capsule Take 1 (one) capsule by mouth once daily Active HYDROcodone-pankaj taminophen ([place]) 5-325 MG tabletIndicatio ns:Post-operati ve state Take 1 (one) tablet by mouth every 6 hours as needed for Pain 30 tablet 05/13/20 Active Active Problems Problem Noted Date Diagnosed [...] more drinks on one occasion? 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 Gender Identity Not on file Sexual Orientation [...] VACCINE (1 - 2023-2 5 season) 2024 DEPRESSION SCREENING 08/10/2024 MEDICARE AWV CALENDAR YEAR 2024 ZOSTER VACCINE (1 of 2) 2024 INFLUENZA VACCINE (Season Ended) 2025 HIB VACCINE Aged Out No longer eligi [...] on patient's age to complete this topic Insurance ANTH [facility] [place]ICA[place] Care Teams Bacteriology Teacher Relationship Specialty Start Date End Date Clement Pinto APRN-LEAN CONSULTANT [address] [facility] [place] [phone] PCP - General Nurse Practitioner Family 05/13/23
--- OUTSIDE RECORDS SUMMARY | 2024-12-08 16:10 | XMS_ITS | Continuity of Care Document ---
Author Organization [facility] Address [address] [place] [address] Phone Care Team Providers Care Quartz Miner Blasting Name Role Phone Arnulfo Farrell Unavailable Unavailable Advance Directives Directive Yes / No Effective Date File Name No Information Encounters Encounter Description Practice Location Reason(s) For Visit Diagnoses Date Provider Providers Copied on Encounter [facility], [address] [place] [address], [facility], tel:[phone] *[facility] No Information Bud Arredondo. [address] [place] [address], [facility], . tel:[phone] Family History Family Member Type Diagnosis Age [...]
--- OUTSIDE RECORDS SUMMARY | 2024-12-08 16:10 | XMS_ITS | Continuity of Care Document ---
Author Organization [facility] Address [address] [place] [address] Phone Care Team Providers Care Swimming Teacher Name Role Phone Unavailable Unavailable Unavailable Allergies, [...] ONCE DAILY - Active FreeStyle Carol 2 Riparius please issue one reader to monitor constant [...] Diagnoses Date Provider Providers Copied on Encounter [facility], [address] [place] [address], [address], tel:[phone] *[facility] No Information 4 No Information [facility], [address] [place] [address], [address], tel:[phone] *[facility] No Information 3 No Information [facility], [address] [place] [address], [address], tel:[phone] *[facility] Body mass index [BMI] 32.0-32.9, adult 3 No Information OFFICE/OUTPA TIENT VISIT, EST [facility], [address] [place] [address], [address], tel:[phone] *[facility] Diabetes (chief complaint)R efills (chief complaint) Chronic kidney disease, unspecified CKD stageType 2 diabetes mellitus with hyperglycemiaPa in in unspecified joint 3 No Information [facility], [address] [place] [address], [address], [place] tel:[phone] *[facility] No Information 3 No Information [facility], [address] [place] [address], [address], [place] tel:[phone] *[facility] Abnormal complete blood count 3 No Information OFFICE/OUTPA TIENT VISIT, [facility], [address] [place] [address], [address], [place] tel:[phone] *[facility] Surgery clearance (chief complaint) Body mass index [BMI] 29.0-29.9, adultType 2 diabetes mellitus with hyperglycemiaPo lyneuropathyChr onic systolic (congestive) heart failureChronic kidney disease, unspecified CKD stageAt risk for falling 3 No Information [facility], [address] [place] [address], [address], [place] tel:[phone] *[facility] No Information 3 No Information [facility], [address] [place] [address], [address], [place] tel:[phone] *[facility] Polyneuropathy 3 No Information OFFICE/OUTPA TIENT VISIT, [facility], [address] [place] [address], [address], [place] tel:[phone] *[facility] ear pain bilateral (chief complaint)c hronic conditions (chief complaint)e luke (chief complaint)s ore under left breast (chief complaint) Body mass index [BMI] 31.0-31.9, adultCellulitis of breastAcute serous otitis media, bilateralChroni c systolic (congestive) heart failurePolyneur opathyChronic pain of left knee 3 No Information [facility], [address] [place] [address], [address], [place] tel:[phone] *[facility] No Information 3 No Information OFFICE/OUTPA TIENT VISIT, [facility], [address] [place] [address], [address], tel:[phone] *[facility] pain (chief complaint)U TI (chief complaint)c hronic conditions (chief complaint) Pain in unspecified jointChronic kidney disease, unspecified CKD stageType 2 diabetes mellitus with hyperglycemiaBo dy mass index [BMI] 45.0-49.9, adultUTIChronic systolic (congestive) heart failureCardiomy opathy, unspecifiedAt risk for falling 3 No Information [facility], [address] [place] [address], [address], tel:[phone] *[facility] No Information 3 No Information OFFICE/OUTPA TIENT VISIT, [facility], [address] [place] [address], [address], tel:[phone] *[facility] New Patient (chief [...] guidance, and counseling completed Referral Referred To: [address] [place], [place], [phone] Ordered: Referrals: Oncology. [facility]. Evaluate and treat ordered Referral Ordered: tina -Nephrology (related to Type 2 diabetes mellitus with hyperglycemia) ordered Referral Referred To: tina Ordered: Referrals: Nephrology. tina. Location: [place]. Evaluate and treat ordered Referral Referred To: manda prince Ordered: Referrals: Endocrinology, Diabetes and Metabolism. [facility]. Evaluate and treat ordered Referral Ordered: [facility] -Neurology (related to Polyneuropathy) ordered Referral Referred To: [facility] Ordered: Referrals: Neurology. [facility]. Evaluate and treat ordered Referral Referred To: [facility] [address] [address] [place], [place], [id number] Ordered: Referrals: Orthopedic Surgery. [facility]. Location: [facility]. Evaluate and treat ordered Future Order: Radiol ogy Order US ABDOMEN COMPLETE ([id number]), Ordered on: Ordered Future Order: Lab Order CBC w/AU TO DIFF ([id number]), Ordered on: Ordered Future Order: Lab Order COMPREHE NSIVE METABOLIC PANEL ([id number]), Ordered on: Ordered Future Order: Lab Order GLYCOHEM OGLOBIN (A1c) ([id number]), Ordered on: Ordered Future Order: Lab Order Electroc ardiogram ([id number]), Ordered on: Ordered Future Order: Lab Order LIPID PA KAR ([id number]), Ordered on: Ordered Future Order: Lab Order THYROID STIMULATING HORMONE ([id number]), Ordered on: Ordered Future Order: Lab Order BNP (B-t ype Natriuretic Peptide) ([id number]), Sent on: Sent Future Order: Lab Order COMPREHE NSIVE METABOLIC PANEL ([id number]), Sent on: Sent Future Order: Lab Order CBC w/AU TO DIFF ([id number]), Sent on: Sent Future Order: Lab Order Electroc ardiogram ([id number]), Sent on: Sent Future Order: Radiol ogy Order CHEST 2 VW FRONT & LAT ([id number]), Sent on: Sent Future Order: Radiol ogy Order KNEE, LEFT, (1 OR 2 VIEWS) ([id number]), Ordered on: Ordered History Of Present Illness [...]
--- OUTSIDE RECORDS SUMMARY | 2024-12-08 16:10 | XMS_ITS | Patient Health Record ---
Author Organization [facility] Address [address] [facility] [address] [facility] [address] [place] [address] Care Team Providers Care Esl Professor Name Role Phone Gilma Chiu Unavailable [phone] REASON FOR REFERRAL No Information MEDICATIONS Medication [...] Notes Problem Hyperkalemia (E87.5) Active confirmed Hyperkalemia (28006301) Problem Heart failure, unspecified (I50.9) Active confirmed Heart failure (86479645) Problem Hypotension, unspecified (I95.9) Active confirmed Hypotension (94402764) Problem Chronic kidney disease, stage 2 (mild) (N18.2) Active confirmed Chronic kidne y disease stage 2 (956827526) Problem Retention of urine, unspecified (R33.9) Active confirmed Retention of urine (717768469) Problem Type 2 diabetes mellitus without complication, unspecified whether termination clerk insulin use (E11.9) Active confirmed Type II diabete s mellitus without complication (087982098) PLAN OF TREATMENT No Information
--- OUTSIDE RECORDS SUMMARY | 2024-12-08 16:10 | XMS_ITS | Referral Summary ---
Author Organization [facility] er Address [address] [place] [address] Care Team Providers Care Residential Program Worker Name Role Phone Donte Lucas Primary Care Provider Encounters Date Type Department Care Team Description 12/01/2024 9:00 AM CDT Office Visit [facility] Cardiology [address] [place] [address] [address] [place] [address] Maggie Schmitz NP Chronic systolic congestive heart failure (HCC) (Primary Dx); Coronary artery disease involving venetie coronary artery of venetie heart without angina pectoris; Lipid screening; Paroxysmal atrial fibrillation (HCC); Urinary retention; Hospital discharge follow-up 11/10/2024 3:00 PM CDT Home Care Visit [address] [place] [address] Danuta Peña, [facility] INFORMATIONAL VISIT 11/08/2024 Home Care Visit [address] [place] [address] Amanda Mcdonnell RN SN TRIAGE ENCOUNTER 11/07/2024 Orders Only [facility] Cardiology [address] [facility] [address] [place] [address] John Freedman MD 10/28/2024 Orders Only [facility] [address] [place] [id number] Trevor Rollins MD 09/13/2024 1:12 AM PATIENT SERVICE REP - 10/01/2024 5:21 PM PATIENT SERVICE REP Hospital Encounter [facility] [address] [place] [id number] Abeba Ash MD Striker, David A., MD [...] health skilled care from Last 3 Months Allergies Active Allergy [...] times a day with meals Sliding Scale Active HYDROcodone-acet aminophen (NORCO) 5-325 mg per [...] hematuria 09/22/2021 Coronary artery disease invo lving venetie coronary artery of venetie heart without angina pectoris 09/22/2021 Chronic pain [...] drink = 0.6 oz pur e alcohol) [facility] Utilities Answer Date Recorded In the past 12 months has [employer], gas, oil, or water [employer] threatened to shut off services in your [...] often do you attend chur ch or evangelical services? Never 09/13/2024 Do you belong to any clubs o r organizations such as synagogue groups, unions, fraternal or athletic groups, or [...] any time in the past [facility], were you homeless or living in a nursing home (including now)? No 09/13/2024 Personal Safety Answer Date Recorded Have you ever been in or are you currently in a harmful physical or emotional relationship or is someone making you feel afraid or unsafe? Patient unable to answer 09/13/2024 Comments No Sex and Gender Information Value Date Recorded Sex Assigned at Not on file Legal Sex Female 11:01 PM PATIENT SERVICE REP Gender Identity Not on file Sexual Orientation Not on file Last Filed Vital Signs Vital Sign Reading Time Taken Comments Blood Pressure 108/68 12/01/2024 8:58 AM CDT Pulse 90 12/01/2024 8:58 AM CDT Temperature 36.4 C (97.6 F) 10/01/2024 3:07 AM PATIENT SERVICE REP Respiratory Rate 18 10/01/2024 3:07 AM PATIENT SERVICE REP Oxygen Saturation 94% 12/01/2024 8:58 AM CDT Inhaled Oxygen Concentration - - Weight 94.8 kg (209 lb) 12/01/2024 8:58 AM CDT Height 165.1 cm (5' 5 ) 12/01/2024 8:58 AM CDT Body Mass Index 34.78 12/01/2024 8:58 AM CDT Plan of Treatment Not on file Procedures [...] GLUCOSE DEVICE Routine 10/01/2024 4 :34 PM PATIENT SERVICE REP POCT GLUCOSE DEVICE Routine 10/01/2024 11:48 AM PATIENT SERVICE REP XR CHEST 1 VIEW IP Routine 10/01/2024 9:10 AM PATIENT SERVICE REP EGFR Routine 10/01/2024 6:57 AM PATIENT SERVICE REP BASIC METABOLIC PANEL Routine 10/01/2024 6:57 AM PATIENT SERVICE REP MAGNESIUM Routine 10/01/2024 6:57 AM PATIENT SERVICE REP POCT GLUCOSE DEVICE Routine 10/01/2024 6 :04 AM PATIENT SERVICE REP POCT GLUCOSE DEVICE Routine 10/01/2024 2 :00 AM PATIENT SERVICE REP POCT GLUCOSE DEVICE Routine 09/30/2024 9 :45 PM PATIENT SERVICE REP POCT GLUCOSE DEVICE Routine 09/30/2024 4 :52 PM PATIENT SERVICE REP POCT GLUCOSE DEVICE Routine 09/30/2024 11:39 AM PATIENT SERVICE REP POCT GLUCOSE DEVICE Routine 09/30/2024 8 :36 AM PATIENT SERVICE REP POCT GLUCOSE DEVICE Routine 09/30/2024 5 :29 AM PATIENT SERVICE REP POCT GLUCOSE DEVICE Routine 09/30/2024 2 :22 AM PATIENT SERVICE REP POCT GLUCOSE DEVICE Routine 09/29/2024 8 :35 PM PATIENT SERVICE REP POCT GLUCOSE DEVICE Routine 09/29/2024 5 :35 PM PATIENT SERVICE REP EGFR Routine 09/29/2024 3:33 PM PATIENT SERVICE REP DIFFERENTIAL AUTO Routine 09/29/2024 3:3 3 PM PATIENT SERVICE REP COMPREHENSIVE METABOLIC PANEL Routine 09/29/2024 3:33 PM PATIENT SERVICE REP CBC WITH AUTO DIFFERENTIAL Routine 09/29/2024 3:33 PM PATIENT SERVICE REP POCT GLUCOSE DEVICE Routine 09/29/2024 1 :43 PM PATIENT SERVICE REP POCT GLUCOSE DEVICE Routine 09/29/2024 9 :49 AM PATIENT SERVICE REP POCT GLUCOSE DEVICE Routine 09/29/2024 7 :27 AM PATIENT SERVICE REP POCT GLUCOSE DEVICE Routine 09/29/2024 5 :31 AM PATIENT SERVICE REP POCT GLUCOSE DEVICE Routine 09/29/2024 1 :25 AM PATIENT SERVICE REP POCT GLUCOSE DEVICE Routine 09/28/2024 9 :14 PM PATIENT SERVICE REP POCT GLUCOSE DEVICE Routine 09/28/2024 5 :12 PM PATIENT SERVICE REP POCT GLUCOSE DEVICE Routine 09/28/2024 1 :43 PM PATIENT SERVICE REP POCT GLUCOSE DEVICE Routine 09/28/2024 9 :16 AM PATIENT SERVICE REP EGFR Routine 09/28/2024 7:09 AM PATIENT SERVICE REP DIFFERENTIAL AUTO Routine 09/28/2024 7:0 9 AM PATIENT SERVICE REP COMPREHENSIVE METABOLIC PANEL Routine 09/28/2024 7:09 AM PATIENT SERVICE REP CBC WITH AUTO DIFFERENTIAL Routine 09/28/2024 7:09 AM PATIENT SERVICE REP POCT GLUCOSE DEVICE Routine 09/28/2024 5 :42 AM PATIENT SERVICE REP POCT GLUCOSE DEVICE Routine 09/28/2024 1 :31 AM PATIENT SERVICE REP POCT GLUCOSE DEVICE Routine 09/27/2024 9 :14 PM PATIENT SERVICE REP POCT GLUCOSE DEVICE Routine 09/27/2024 5 :25 PM PATIENT SERVICE REP POCT GLUCOSE DEVICE Routine 09/27/2024 3 :13 PM PATIENT SERVICE REP FL MODIFIED BARIUM SWALLOW W VIDEO IP Routine 09/27/2024 2:20 PM PATIENT SERVICE REP POCT GLUCOSE DEVICE Routine 09/27/2024 10:05 AM PATIENT SERVICE REP ADD ON LAB TEST Add-On 09/27/2024 8:43 AM PATIENT SERVICE REP POCT GLUCOSE DEVICE Routine 09/27/2024 5 :57 AM PATIENT SERVICE REP IRON PROFILE W/ IBC Routine 09/27/2024 5 :42 AM PATIENT SERVICE REP EGFR Routine 09/27/2024 5:42 AM PATIENT SERVICE REP DIFFERENTIAL AUTO Routine 09/27/2024 5:4 2 AM PATIENT SERVICE REP COMPREHENSIVE METABOLIC PANEL Routine 09/27/2024 5:42 AM PATIENT SERVICE REP CBC WITH AUTO DIFFERENTIAL Routine 09/27/2024 5:42 AM PATIENT SERVICE REP POCT GLUCOSE DEVICE Routine 09/27/2024 2 :14 AM PATIENT SERVICE REP POCT GLUCOSE DEVICE Routine 09/26/2024 9 :41 PM PATIENT SERVICE REP POCT GLUCOSE DEVICE Routine 09/26/2024 6 :18 PM PATIENT SERVICE REP POCT GLUCOSE DEVICE Routine 09/26/2024 2 :51 PM PATIENT SERVICE REP CBC WITH AUTO DIFFERENTIAL STAT 09/26/2024 2:03 PM PATIENT SERVICE REP EGFR Routine 09/26/2024 1:25 PM PATIENT SERVICE REP DIFFERENTIAL AUTO Routine 09/26/2024 1:2 5 PM PATIENT SERVICE REP COMPREHENSIVE METABOLIC PANEL Routine 09/26/2024 1:25 PM PATIENT SERVICE REP CBC WITH AUTO DIFFERENTIAL Routine 09/26/2024 1:25 PM PATIENT SERVICE REP POCT GLUCOSE DEVICE Routine 09/26/2024 10:10 AM PATIENT SERVICE REP POCT GLUCOSE DEVICE Routine 09/26/2024 5 :04 AM PATIENT SERVICE REP C. DIFFICILE TESTING Routine 09/26/2024 2:18 AM PATIENT SERVICE REP POCT GLUCOSE DEVICE Routine 09/26/2024 12:01 AM PATIENT SERVICE REP POCT GLUCOSE DEVICE Routine 09/25/2024 8 :35 PM PATIENT SERVICE REP POCT GLUCOSE DEVICE Routine 09/25/2024 4 :36 PM PATIENT SERVICE REP POCT GLUCOSE DEVICE Routine 09/25/2024 11:55 AM PATIENT SERVICE REP POCT GLUCOSE DEVICE Routine 09/25/2024 8 :32 AM PATIENT SERVICE REP EGFR Routine 09/25/2024 8:32 AM PATIENT SERVICE REP DIFFERENTIAL AUTO Routine 09/25/2024 8:3 2 AM PATIENT SERVICE REP COMPREHENSIVE METABOLIC PANEL Routine 09/25/2024 8:32 AM PATIENT SERVICE REP CBC WITH AUTO DIFFERENTIAL Routine 09/25/2024 8:32 AM PATIENT SERVICE REP POCT GLUCOSE DEVICE Routine 09/25/2024 4 :49 AM PATIENT SERVICE REP POCT GLUCOSE DEVICE Routine 09/25/2024 12:48 AM PATIENT SERVICE REP POCT GLUCOSE DEVICE Routine 09/24/2024 8 :56 PM PATIENT SERVICE REP POCT GLUCOSE DEVICE Routine 09/24/2024 4 :20 PM PATIENT SERVICE REP POCT GLUCOSE DEVICE Routine 09/24/2024 12:13 PM PATIENT SERVICE REP XR CHEST 1 VIEW IP Routine 09/24/2024 8:18 AM PATIENT SERVICE REP POCT GLUCOSE DEVICE Routine 09/24/2024 4 :12 AM PATIENT SERVICE REP POCT GLUCOSE DEVICE Routine 09/24/2024 2 :44 AM PATIENT SERVICE REP POCT GLUCOSE DEVICE Routine 09/24/2024 1 :06 AM PATIENT SERVICE REP POCT GLUCOSE DEVICE Routine 09/24/2024 12:44 AM PATIENT SERVICE REP POCT GLUCOSE DEVICE Routine 09/24/2024 12:22 AM PATIENT SERVICE REP POCT GLUCOSE DEVICE Routine 09/23/2024 9 :34 PM PATIENT SERVICE REP POCT GLUCOSE DEVICE Routine 09/23/2024 4 :10 PM PATIENT SERVICE REP POCT GLUCOSE DEVICE Routine 09/23/2024 1 :10 PM PATIENT SERVICE REP POCT GLUCOSE DEVICE Routine 09/23/2024 12:18 PM PATIENT SERVICE REP POCT GLUCOSE DEVICE Routine 09/23/2024 11:55 AM PATIENT SERVICE REP POCT GLUCOSE DEVICE Routine 09/23/2024 11:54 AM PATIENT SERVICE REP POCT GLUCOSE DEVICE Routine 09/23/2024 7 :47 AM PATIENT SERVICE REP POCT GLUCOSE DEVICE Routine 09/23/2024 3 :27 AM PATIENT SERVICE REP POCT GLUCOSE DEVICE Routine 09/23/2024 1 :13 AM PATIENT SERVICE REP POCT GLUCOSE DEVICE Routine 09/23/2024 12:17 AM PATIENT SERVICE REP POCT GLUCOSE DEVICE Routine 09/22/2024 11:54 PM PATIENT SERVICE REP BLOOD GAS, ARTERIAL STAT 09/22/2024 8 :33 PM PATIENT SERVICE REP POCT GLUCOSE DEVICE Routine 09/22/2024 7 :46 PM PATIENT SERVICE REP POCT GLUCOSE DEVICE Routine 09/22/2024 4 :04 PM PATIENT SERVICE REP EXTUBATION Routine 09/22/2024 3:48 PM PATIENT SERVICE REP POCT GLUCOSE DEVICE Routine 09/22/2024 11:51 AM PATIENT SERVICE REP POCT GLUCOSE DEVICE Routine 09/22/2024 8 :42 AM PATIENT SERVICE REP POCT GLUCOSE DEVICE Routine 09/22/2024 4 :05 AM PATIENT SERVICE REP XR CHEST 1 VIEW IP Routine 09/22/2024 3:59 AM PATIENT SERVICE REP EGFR Routine 09/22/2024 2:24 AM PATIENT SERVICE REP CBC WITHOUT DIFFERENTIAL Routine 09/22/2024 2:24 AM PATIENT SERVICE REP MAGNESIUM Routine 09/22/2024 2:24 AM PATIENT SERVICE REP RENAL FUNCTION PANEL Routine 09/22/2024 2:24 AM PATIENT SERVICE REP POCT GLUCOSE DEVICE Routine 09/21/2024 11:58 PM PATIENT SERVICE REP POCT GLUCOSE DEVICE Routine 09/21/2024 7 :01 PM PATIENT SERVICE REP POCT GLUCOSE DEVICE Routine 09/21/2024 3 :10 PM PATIENT SERVICE REP POTASSIUM LEVEL STAT 09/21/2024 2:07 PM PATIENT SERVICE REP POCT GLUCOSE DEVICE Routine 09/21/2024 11:30 AM PATIENT SERVICE REP POCT GLUCOSE DEVICE Routine 09/21/2024 7 :19 AM PATIENT SERVICE REP XR CHEST 1 VIEW IP Routine 09/21/2024 4:44 AM PATIENT SERVICE REP POCT GLUCOSE DEVICE Routine 09/21/2024 3 :47 AM PATIENT SERVICE REP EGFR Routine 09/21/2024 1:48 AM PATIENT SERVICE REP PHOSPHORUS Routine 09/21/2024 1:48 AM PATIENT SERVICE REP BILIRUBIN, DIRECT Routine 09/21/2024 1:4 8 AM PATIENT SERVICE REP COMPREHENSIVE METABOLIC PANEL Routine 09/21/2024 1:48 AM PATIENT SERVICE REP CBC WITHOUT DIFFERENTIAL Routine 09/21/2024 1:48 AM PATIENT SERVICE REP MAGNESIUM Routine 09/21/2024 1:48 AM PATIENT SERVICE REP POCT GLUCOSE DEVICE Routine 09/20/2024 11:54 PM PATIENT SERVICE REP POCT GLUCOSE DEVICE Routine 09/20/2024 7 :03 PM PATIENT SERVICE REP POCT GLUCOSE DEVICE Routine 09/20/2024 3 :28 PM PATIENT SERVICE REP POCT GLUCOSE DEVICE Routine 09/20/2024 11:48 AM PATIENT SERVICE REP BLOOD GAS, ARTERIAL STAT 09/20/2024 10:54 AM PATIENT SERVICE REP XR CHEST 1 VIEW ED Urgent/IP Urgent 09/20/2024 9:17 AM PATIENT SERVICE REP POCT GLUCOSE DEVICE Routine 09/20/2024 7 :20 AM PATIENT SERVICE REP POCT GLUCOSE DEVICE Routine 09/20/2024 3 :37 AM PATIENT SERVICE REP EGFR Routine 09/20/2024 12:27 AM PATIENT SERVICE REP DIFFERENTIAL AUTO Routine 09/20/2024 12:27 AM PATIENT SERVICE REP COMPREHENSIVE METABOLIC PANEL Routine 09/20/2024 12:27 AM PATIENT SERVICE REP CBC WITH AUTO DIFFERENTIAL Routine 09/20/2024 12:27 AM PATIENT SERVICE REP POCT GLUCOSE DEVICE Routine 09/19/2024 11:00 PM PATIENT SERVICE REP POCT GLUCOSE DEVICE Routine 09/19/2024 7 :52 PM PATIENT SERVICE REP POCT GLUCOSE DEVICE Routine 09/19/2024 4 :55 PM PATIENT SERVICE REP POCT GLUCOSE DEVICE Routine 09/19/2024 12:31 PM PATIENT SERVICE REP POTASSIUM LEVEL Timed 09/19/2024 10:04 AM PATIENT SERVICE REP EEG Routine 09/19/2024 8:50 AM PATIENT SERVICE REP POCT GLUCOSE DEVICE Routine 09/19/2024 7 :53 AM PATIENT SERVICE REP POCT GLUCOSE DEVICE Routine 09/19/2024 3 :58 AM PATIENT SERVICE REP MANUAL DIFFERENTIAL Routine 09/19/2024 1 :46 AM PATIENT SERVICE REP EGFR Routine 09/19/2024 1:46 AM PATIENT SERVICE REP DIFFERENTIAL AUTO Routine 09/19/2024 1:4 6 AM PATIENT SERVICE REP CBC WITH AUTO DIFFERENTIAL Routine 09/19/2024 1:46 AM PATIENT SERVICE REP MAGNESIUM Routine 09/19/2024 1:46 AM PATIENT SERVICE REP PHOSPHORUS Routine 09/19/2024 1:46 AM PATIENT SERVICE REP COMPREHENSIVE METABOLIC PANEL Routine 09/19/2024 1:46 AM PATIENT SERVICE REP AMMONIA STAT 09/19/2024 1:07 AM PATIENT SERVICE REP POCT GLUCOSE DEVICE Routine 09/18/2024 11:58 PM PATIENT SERVICE REP POCT GLUCOSE DEVICE Routine 09/18/2024 9 :10 PM PATIENT SERVICE REP POCT GLUCOSE DEVICE Routine 09/18/2024 4 :18 PM PATIENT SERVICE REP POCT GLUCOSE DEVICE Routine 09/18/2024 12:07 PM PATIENT SERVICE REP DIC SCHISTOCYTES STAT 09/18/2024 8:13 AM PATIENT SERVICE REP DIC PLATELET STAT 09/18/2024 8:13 AM PATIENT SERVICE REP DIFFERENTIAL AUTO STAT 09/18/2024 8:1 3 AM PATIENT SERVICE REP CBC WITH AUTO DIFFERENTIAL STAT 09/18/2024 8:13 AM PATIENT SERVICE REP DIC PROFILE Routine 09/18/2024 8:13 AM PATIENT SERVICE REP POCT GLUCOSE DEVICE Routine 09/18/2024 7:57 AM PATIENT SERVICE REP POCT GLUCOSE DEVICE Routine 09/18/2024 7 :56 AM PATIENT SERVICE REP EGFR Routine 09/18/2024 7:26 AM PATIENT SERVICE REP VITAMIN B12 Routine 09/18/2024 7:26 AM PATIENT SERVICE REP PHOSPHORUS Routine 09/18/2024 7:26 AM PATIENT SERVICE REP MAGNESIUM Routine 09/18/2024 7:26 AM PATIENT SERVICE REP COMPREHENSIVE METABOLIC PANEL Routine 09/18/2024 7:26 AM PATIENT SERVICE REP POCT GLUCOSE DEVICE Routine 09/18/2024 4 :28 AM PATIENT SERVICE REP DIC COAGULATION Routine 09/18/2024 4:20 AM PATIENT SERVICE REP POCT GLUCOSE DEVICE Routine 09/17/2024 11:57 PM PATIENT SERVICE REP POCT GLUCOSE DEVICE Routine 09/17/2024 8 :02 PM PATIENT SERVICE REP POCT GLUCOSE DEVICE Routine 09/17/2024 4 :21 PM PATIENT SERVICE REP EGFR Timed 09/17/2024 2:52 PM PATIENT SERVICE REP RENAL FUNCTION PANEL Timed 09/17/2024 2:52 PM PATIENT SERVICE REP POCT GLUCOSE DEVICE Routine 09/17/2024 12:23 PM PATIENT SERVICE REP POCT GLUCOSE DEVICE Routine 09/17/2024 7 :09 AM PATIENT SERVICE REP POCT GLUCOSE DEVICE Routine 09/17/2024 4 :42 AM PATIENT SERVICE REP MANUAL DIFFERENTIAL Routine 09/17/2024 4 :10 AM PATIENT SERVICE REP EGFR Routine 09/17/2024 4:10 AM PATIENT SERVICE REP HAPTOGLOBIN Routine 09/17/2024 4:10 AM PATIENT SERVICE REP THYROID FUNCTION CASCADE Routine 09/17/2024 4:10 AM PATIENT SERVICE REP MAGNESIUM Routine 09/17/2024 4:10 AM PATIENT SERVICE REP PHOSPHORUS Routine 09/17/2024 4:10 AM PATIENT SERVICE REP CBC WITH AUTO DIFFERENTIAL Routine 09/17/2024 4:10 AM PATIENT SERVICE REP COMPREHENSIVE METABOLIC PANEL Routine 09/17/2024 4:10 AM PATIENT SERVICE REP XR CHEST 1 VIEW IP Routine 09/17/2024 2:59 AM PATIENT SERVICE REP POCT GLUCOSE DEVICE Routine 09/16/2024 11:48 PM PATIENT SERVICE REP POCT GLUCOSE DEVICE Routine 09/16/2024 8 :12 PM PATIENT SERVICE REP POCT GLUCOSE DEVICE Routine 09/16/2024 4 :04 PM PATIENT SERVICE REP POCT GLUCOSE DEVICE Routine 09/16/2024 12:27 PM PATIENT SERVICE REP US VEIN DUPLEX LOWER EXTREMITY BILATERAL COMPLETE IP Routine 09/16/2024 11:24 AM PATIENT SERVICE REP MI INSJ NON-TUNNELED CENTRAL VENOUS CATH AGE 4 YR/> Routine 09/16/2024 8:53 AM PATIENT SERVICE REP MSSA bacteremia BLOOD CULTURE STAT 09/16/2024 8:53 AM PATIENT SERVICE REP BLOOD CULTURE STAT 09/16/2024 8:45 AM PATIENT SERVICE REP POCT GLUCOSE DEVICE Routine 09/16/2024 7 :33 AM PATIENT SERVICE REP MANUAL DIFFERENTIAL STAT 09/16/2024 5 :30 AM PATIENT SERVICE REP CBC WITH AUTO DIFFERENTIAL STAT 09/16/2024 5:30 AM PATIENT SERVICE REP POCT GLUCOSE DEVICE Routine 09/16/2024 5 :23 AM PATIENT SERVICE REP XR CHEST 1 VIEW Routine 09/16/2024 4:37 AM PATIENT SERVICE REP TRIGLYCERIDES Routine 09/16/2024 4:05 AM PATIENT SERVICE REP EGFR Routine 09/16/2024 4:05 AM PATIENT SERVICE REP MAGNESIUM Routine 09/16/2024 4:05 AM PATIENT SERVICE REP RENAL FUNCTION PANEL Routine 09/16/2024 4:05 AM PATIENT SERVICE REP BLOOD CULTURE STAT 09/16/2024 4:05 AM PATIENT SERVICE REP POCT GLUCOSE DEVICE Routine 09/16/2024 3 :45 AM PATIENT SERVICE REP MRI BRAIN WO CONTRAST IP Routine 09/16/2024 1:48 AM PATIENT SERVICE REP POCT GLUCOSE DEVICE Routine 09/16/2024 1 :06 AM PATIENT SERVICE REP POCT GLUCOSE DEVICE Routine 09/16/2024 12:01 AM PATIENT SERVICE REP POCT GLUCOSE DEVICE Routine 09/15/2024 9 :09 PM PATIENT SERVICE REP POCT GLUCOSE DEVICE Routine 09/15/2024 7 :41 PM PATIENT SERVICE REP POCT GLUCOSE DEVICE Routine 09/15/2024 5 :12 PM PATIENT SERVICE REP POCT GLUCOSE DEVICE Routine 09/15/2024 3 :05 PM PATIENT SERVICE REP AEROBIC CULTURE AND GRAM STAIN Routine 09/15/2024 1:57 PM PATIENT SERVICE REP TRANSESOPHAGEAL ECHO (DEMI) W DOPPLER/CF WO CONTRAST Routine 09/15/2024 1:43 PM PATIENT SERVICE REP POCT GLUCOSE DEVICE Routine 09/15/2024 1 :05 PM PATIENT SERVICE REP XR CHEST 1 VIEW Critical/Life- Threatening 09/15/2024 11:41 AM PATIENT SERVICE REP BLOOD GAS, ARTERIAL STAT 09/15/2024 11:34 AM PATIENT SERVICE REP POCT GLUCOSE DEVICE Routine 09/15/2024 11:07 AM PATIENT SERVICE REP INTUBATION Routine 09/15/2024 10:31 AM PATIENT SERVICE REP Toxic metabolic encephalopathy MONITOR EXHALED CO2 Routine 09/15/2024 10:30 AM PATIENT SERVICE REP POCT GLUCOSE DEVICE Routine 09/15/2024 9 :16 AM PATIENT SERVICE REP POCT GLUCOSE DEVICE Routine 09/15/2024 7 :06 AM PATIENT SERVICE REP POCT GLUCOSE DEVICE Routine 09/15/2024 5 :27 AM PATIENT SERVICE REP POCT GLUCOSE DEVICE Routine 09/15/2024 3 :51 AM PATIENT SERVICE REP APTT Timed 09/15/2024 3:48 AM PATIENT SERVICE REP XR CHEST 1 VIEW IP Routine 09/15/2024 3:41 AM PATIENT SERVICE REP EGFR Routine 09/15/2024 1:50 AM PATIENT SERVICE REP PHOSPHORUS Routine 09/15/2024 1:50 AM PATIENT SERVICE REP BILIRUBIN, DIRECT Routine 09/15/2024 1:5 0 AM PATIENT SERVICE REP COMPREHENSIVE METABOLIC PANEL Routine 09/15/2024 1:50 AM PATIENT SERVICE REP CBC WITHOUT DIFFERENTIAL Routine 09/15/2024 1:50 AM PATIENT SERVICE REP MAGNESIUM Routine 09/15/2024 1:50 AM PATIENT SERVICE REP POCT GLUCOSE DEVICE Routine 09/15/2024 12:53 AM PATIENT SERVICE REP POCT GLUCOSE DEVICE Routine 09/14/2024 11:15 PM PATIENT SERVICE REP APTT Timed 09/14/2024 9:19 PM PATIENT SERVICE REP POCT GLUCOSE DEVICE Routine 09/14/2024 9 :16 PM PATIENT SERVICE REP POCT GLUCOSE DEVICE Routine 09/14/2024 7 :20 PM PATIENT SERVICE REP POCT GLUCOSE DEVICE Routine 09/14/2024 6 :16 PM PATIENT SERVICE REP POCT GLUCOSE DEVICE Routine 09/14/2024 4 :55 PM PATIENT SERVICE REP POCT GLUCOSE DEVICE Routine 09/14/2024 4 :10 PM PATIENT SERVICE REP POCT GLUCOSE DEVICE Routine 09/14/2024 3 :03 PM PATIENT SERVICE REP EGFR Timed 09/14/2024 1:05 PM PATIENT SERVICE REP RENAL FUNCTION PANEL Timed 09/14/2024 1:05 PM PATIENT SERVICE REP APTT Timed 09/14/2024 1:05 PM PATIENT SERVICE REP POCT GLUCOSE DEVICE Routine 09/14/2024 12:55 PM PATIENT SERVICE REP POCT GLUCOSE DEVICE Routine 09/14/2024 12:01 PM PATIENT SERVICE REP POCT GLUCOSE DEVICE Routine 09/14/2024 11:05 AM PATIENT SERVICE REP POCT GLUCOSE DEVICE Routine 09/14/2024 10:04 AM PATIENT SERVICE REP BLOOD CULTURE STAT 09/14/2024 9:42 AM PATIENT SERVICE REP BLOOD CULTURE STAT 09/14/2024 9:42 AM PATIENT SERVICE REP POCT GLUCOSE DEVICE Routine 09/14/2024 8 :56 AM PATIENT SERVICE REP BLOOD GAS, ARTERIAL STAT 09/14/2024 8 :08 AM PATIENT SERVICE REP POCT GLUCOSE DEVICE Routine 09/14/2024 7 :50 AM PATIENT SERVICE REP APTT Timed 09/14/2024 6:06 AM PATIENT SERVICE REP POCT GLUCOSE DEVICE Routine 09/14/2024 4 :10 AM PATIENT SERVICE REP XR CHEST 1 VIEW IP Routine 09/14/2024 3:10 AM PATIENT SERVICE REP MANUAL DIFFERENTIAL Routine 09/14/2024 1 :59 AM PATIENT SERVICE REP EGFR Routine 09/14/2024 1:59 AM PATIENT SERVICE REP PHOSPHORUS Routine 09/14/2024 1:59 AM PATIENT SERVICE REP BILIRUBIN, DIRECT Routine 09/14/2024 1:5 9 AM PATIENT SERVICE REP COMPREHENSIVE METABOLIC PANEL Routine 09/14/2024 1:59 AM PATIENT SERVICE REP CBC WITHOUT DIFFERENTIAL Routine 09/14/2024 1:59 AM PATIENT SERVICE REP MAGNESIUM Routine 09/14/2024 1:59 AM PATIENT SERVICE REP POCT GLUCOSE DEVICE Routine 09/14/2024 12:41 AM PATIENT SERVICE REP APTT Timed 09/13/2024 9:58 PM PATIENT SERVICE REP XR ABDOMEN ERECT AND OR DECUBITS 2 VIEWS IP Routine 09/13/2024 9:41 PM PATIENT SERVICE REP POCT GLUCOSE DEVICE Routine 09/13/2024 7 :57 PM PATIENT SERVICE REP EGFR Timed 09/13/2024 6:33 PM PATIENT SERVICE REP RENAL FUNCTION PANEL Timed 09/13/2024 6:33 PM PATIENT SERVICE REP ECG 12-LEAD STAT 09/13/2024 5:24 PM PATIENT SERVICE REP POCT GLUCOSE DEVICE Routine 09/13/2024 4 :29 PM PATIENT SERVICE REP POCT GLUCOSE DEVICE Routine 09/13/2024 3 :18 PM PATIENT SERVICE REP POCT GLUCOSE DEVICE Routine 09/13/2024 2 :29 PM PATIENT SERVICE REP APTT Timed 09/13/2024 2:28 PM PATIENT SERVICE REP POCT GLUCOSE DEVICE Routine 09/13/2024 1 :10 PM PATIENT SERVICE REP EGFR Timed 09/13/2024 12:22 PM PATIENT SERVICE REP PHOSPHORUS Timed 09/13/2024 12:22 PM PATIENT SERVICE REP MAGNESIUM Timed 09/13/2024 12:22 PM PATIENT SERVICE REP BASIC METABOLIC PANEL Timed 09/13/2024 12:22 PM PATIENT SERVICE REP POCT GLUCOSE DEVICE Routine 09/13/2024 12:20 PM PATIENT SERVICE REP US CAROTIDS DUPLEX BILATERAL IP Routine 09/13/2024 11:55 AM PATIENT SERVICE REP TRANSTHORACIC ECHO (TTE) COMPLETE W DOPPLER/CF W CONTRAST Routine 09/13/2024 11:24 AM PATIENT SERVICE REP POCT GLUCOSE DEVICE Routine 09/13/2024 11:12 AM PATIENT SERVICE REP URINALYSIS, MICROSCOPIC ONLY Routine 09/13/2024 9:45 AM PATIENT SERVICE REP DIC SCHISTOCYTES STAT 09/13/2024 9:45 AM PATIENT SERVICE REP DIC PLATELET STAT 09/13/2024 9:45 AM PATIENT SERVICE REP DIC COAGULATION STAT 09/13/2024 9:45 AM PATIENT SERVICE REP DRUGS OF ABUSE SCREEN, URINE WITHOUT CONFIRMATION Routine 09/13/2024 9:45 AM PATIENT SERVICE REP HIT ANTIBODIES W/REFLEX TO SEROTONIN RELEASE ASSAY ([facility]) Routine 09/13/2024 9:45 AM PATIENT SERVICE REP DIC PROFILE STAT 09/13/2024 9:45 AM PATIENT SERVICE REP AMMONIA STAT 09/13/2024 9:45 AM PATIENT SERVICE REP URINE CULTURE Routine 09/13/2024 9:45 AM PATIENT SERVICE REP URINALYSIS AND REFLEX TO MICROSCOPIC AND CULTURE Routine 09/13/2024 9:45 AM PATIENT SERVICE REP POCT GLUCOSE DEVICE Routine 09/13/2024 9 :31 AM PATIENT SERVICE REP ADD ON LAB TEST Add-On 09/13/2024 9:25 AM PATIENT SERVICE REP ADD ON LAB TEST Add-On 09/13/2024 9:25 AM PATIENT SERVICE REP XR CHEST 1 VIEW Critical/Life- Threatening 09/13/2024 8:30 AM PATIENT SERVICE REP LIPASE Timed 09/13/2024 8:11 AM PATIENT SERVICE REP AMYLASE Timed 09/13/2024 8:11 AM PATIENT SERVICE REP BETA-HYDROXYBUTYRATE Timed 09/13/2024 8:11 AM PATIENT SERVICE REP EGFR Timed 09/13/2024 8:11 AM PATIENT SERVICE REP APTT Timed 09/13/2024 8:11 AM PATIENT SERVICE REP PHOSPHORUS Timed 09/13/2024 8:11 AM PATIENT SERVICE REP MAGNESIUM Timed 09/13/2024 8:11 AM PATIENT SERVICE REP BASIC METABOLIC PANEL Timed 09/13/2024 8:11 AM PATIENT SERVICE REP BLOOD GAS, ARTERIAL STAT 09/13/2024 7 :58 AM PATIENT SERVICE REP POCT GLUCOSE DEVICE Routine 09/13/2024 7 :54 AM PATIENT SERVICE REP POCT GLUCOSE DEVICE Routine 09/13/2024 6 :04 AM PATIENT SERVICE REP BLOOD CULTURE Routine 09/13/2024 5:22 AM PATIENT SERVICE REP POCT GLUCOSE DEVICE Routine 09/13/2024 5 :06 AM PATIENT SERVICE REP POCT GLUCOSE DEVICE Routine 09/13/2024 4 :05 AM PATIENT SERVICE REP CT HEAD WO CONTRAST ED Urgent/IP Urgent 09/13/2024 3:40 AM PATIENT SERVICE REP POCT GLUCOSE DEVICE Routine 09/13/2024 3 :15 AM PATIENT SERVICE REP URINALYSIS, MICROSCOPIC ONLY Routine 09/13/2024 2:59 AM PATIENT SERVICE REP URINE CULTURE Routine 09/13/2024 2:59 AM PATIENT SERVICE REP URINALYSIS AND REFLEX TO MICROSCOPIC AND CULTURE Routine 09/13/2024 2:59 AM PATIENT SERVICE REP POCT GLUCOSE DEVICE Routine 09/13/2024 2 :03 AM PATIENT SERVICE REP ECG 12-LEAD STAT 09/13/2024 1:58 AM PATIENT SERVICE REP RESPIRATORY PATHOGEN PANEL Routine 09/13/2024 1:50 AM PATIENT SERVICE REP BLOOD CULTURE Routine 09/13/2024 1:50 AM PATIENT SERVICE REP EGFR STAT 09/13/2024 1:46 AM PATIENT SERVICE REP DIFFERENTIAL AUTO STAT 09/13/2024 1:4 6 AM PATIENT SERVICE REP HEMOGLOBIN A1C Routine 09/13/2024 1:46 AM PATIENT SERVICE REP TROPONIN T HIGH-SENSITIVITY Routine 09/13/2024 1:46 AM PATIENT SERVICE REP CBC WITH AUTO DIFFERENTIAL STAT 09/13/2024 1:46 AM PATIENT SERVICE REP PROTIME-INR STAT 09/13/2024 1:46 AM PATIENT SERVICE REP APTT STAT 09/13/2024 1:46 AM PATIENT SERVICE REP PRO B-TYPE NATRIURETIC PEPTIDE STAT 09/13/2024 1:46 AM PATIENT SERVICE REP PHOSPHORUS STAT 09/13/2024 1:46 AM PATIENT SERVICE REP MAGNESIUM STAT 09/13/2024 1:46 AM PATIENT SERVICE REP LACTATE STAT 09/13/2024 1:46 AM PATIENT SERVICE REP COMPREHENSIVE METABOLIC PANEL STAT 09/13/2024 1:46 AM PATIENT SERVICE REP TYPE AND SCREEN STAT 09/13/2024 1:46 AM PATIENT SERVICE REP POCT GLUCOSE DEVICE Routine 09/13/2024 1 :30 AM PATIENT SERVICE REP COLONOSCOPY REPORT 06/07/2014 from Last 3 Months or Most Recently Relevant to Health Maintenance Results * POCT lipid panel (12/01/2024 8:57 AM CDT) Cholesterol, POC 133 mg/dL HDL, POC 23 mg/dL Triglycerides, POC 170 mg/dL LDL Cholesterol POC 76 mg/dL Chol/HDL Ratio, POC 3.3 Non-HDL Cholesterol, POC 110 mg/dL Cholesterol Total, POC 133 mg/dL Capillary blood 12/01/2024 8 :57 AM CDT us Maggie Schmitz NP POINT OF CARE TEST ORDERA BLES Final Result * Cardiology Document Scan (11/06/2024 1:01 PM CDT) Anatomical Region Laterality Modality Other us Say Maravilla MD CV CARDIAC SERVICES [facility] Final Result * Cardiology Document Scan (11/05/2024 [...] Result * POCT glucose (10/01/2024 4:34 PM PATIENT SERVICE REP) [facility] Glucose, POC 143 70 - 199 mg/dL Comment: For Glucose values <35 mg/dl when Hematocrit is >60 mg/dl,the test may not accurately detect significant hypoglycemia,and testing in the Laboratory should be considered if clinically indicated. Blood 10/01/2024 4:34 PM PATIENT SERVICE REP 10/01/2024 4:34 PM PATIENT SERVICE REP Chai Beck MD LAB POCT ORDERABLES - DEVICE Final Result Performing Organization Address [facility] Co de Phone Number [facility] [address] Department [place] [address] * POCT glucose (10/01/2024 11:48 AM PATIENT SERVICE REP) [facility] Signature Glucose, POC 145 70 - 199 mg/dL Comment: For Glucose values <35 mg/dl when Hematocrit is >60 mg/dl,the test may not accurately detect significant hypoglycemia,and testing in the Laboratory should be considered if clinically indicated. Blood 10/01/2024 11:4 8 AM PATIENT SERVICE REP 10/01/2024 11:48 AM PATIENT SERVICE REP us Chai Beck MD LAB POCT ORDERABLES - DEVICE Final Result Performing Organization Address [facility] Co de Phone Number [facility] [address] Department [place] [address] * XR Chest 1 View (10/01/2024 9:10 AM PATIENT SERVICE REP) Anatomical Region Laterality Modality Body, Chest N/A Computed Radiogr aphy 10/01/2024 9:17 AM PATIENT SERVICE REP Impressions 10/01/2024 9:17 AM PATIENT SERVICE REP Comparison 09/24/2024 Improvement in the left lower lobe and lingular consolidation. There is now a small left pleural effusion. Right lung is clear. There is no pneumothorax. The cardiomediastinal silhouette is unchanged.. Electronically signed by: Phillip Mathis MD Narrative 10/01/2024 9:17 AM PATIENT SERVICE REP Chest one view HISTORY: Recent pneumonia treated [...] t * (ABNORMAL) eGFR (10/01/2024 6:57 AM PATIENT SERVICE REP) eGFR 54(L) >=60 mL/min/1. 73 m2 Comment: [...] last reviewed 2021. Blood 10/01/2024 6:57 AM PATIENT SERVICE REP 10/01/2024 7:30 AM PATIENT SERVICE REP Timothy Augustin MD LAB BLOOD ORDERABLES Final Re sult Performing Organization Address City/[facility]/ZIP Co de Phone Number [facility] [address] Department [place] [address] * Magnesium (10/01/2024 6:57 AM PATIENT SERVICE REP) Magnesium 1.5 1.4 - 2.5 mg/dL Blood 10/01/2024 6:57 AM PATIENT SERVICE REP 10/01/2024 7:30 AM PATIENT SERVICE REP Arnulfo Jordan MD LAB BLOOD ORDERABLES Final Result Performing Organization Address [facility]/ZIP Co de Phone Number [facility] [address] Department [place] [address] * (ABNORMAL) Basic metabolic panel (10/01/2024 6:57 AM PATIENT SERVICE REP) [facility] Sodium 140 135 - 145 mmol/L Potassium, pl 2.9(L) 3.3 - 4.9 mmol/L [facility] Chloride 108 97 - 110 mmol/L [facility] CO2 22 22 - 32 mmol/L [facility] Anion gap 10 2 - 15 mmol/L [facility] BUN 22 6 - 25 mg/dL [facility] Creatinine 1.23(H) 0.60 - 1.10 mg/dL [facility] Glucose 162 70 - 199 mg/dL [facility] Comment: Interpretive Data Fasting glucose >/= 126 [...] 2022. Calcium 8.0(L) 8.5 - 10.3 mg/dL [facility] Blood 10/01/2024 6:57 AM PATIENT SERVICE REP 10/01/2024 7:30 AM PATIENT SERVICE REP Timothy Augustin MD LAB BLOOD ORDERABLES Final Re sult [facility] [address] Department [place] [address] * POCT glucose (10/01/2024 6:04 AM PATIENT SERVICE REP) Pathologist [facility] Glucose, POC 179 70 - 199 mg/dL Comment: For Glucose values <35 mg/dl when Hematocrit is >60 mg/dl,the test may not accurately detect significant hypoglycemia,and testing in the Laboratory should be considered if clinically indicated. Blood 10/01/2024 6:04 AM PATIENT SERVICE REP 10/01/2024 6:04 AM PATIENT SERVICE REP Arnulfo Jordan MD LAB POCT ORDERABLES - DEVIC E Final Result Performing Organization Address [facility] de Phone Number [facility] [address] [facility] [place] [address] * POCT glucose (10/01/2024 2:00 AM PATIENT SERVICE REP) Glucose, POC 168 70 - 199 mg/dL Comment: For Glucose values <35 mg/dl when Hematocrit is >60 mg/dl,the test may not accurately detect significant hypoglycemia,and testing in the Laboratory should be considered if clinically indicated. Blood 10/01/2024 2:00 AM PATIENT SERVICE REP 10/01/2024 2:00 AM PATIENT SERVICE REP Arnulfo Jordan MD LAB POCT ORDERABLES - DEVIC E Final Result Performing Organization Address [facility] de Phone Number [facility] [address] [facility] [place] [address] * POCT glucose (09/30/2024 9:45 PM PATIENT SERVICE REP) Glucose, POC 173 70 - 199 mg/dL Comment: For Glucose values <35 mg/dl when Hematocrit is >60 mg/dl,the test may not accurately detect significant hypoglycemia,and testing in the Laboratory should be considered if clinically indicated. Blood 09/30/2024 9:45 PM PATIENT SERVICE REP 09/30/2024 9:45 PM PATIENT SERVICE REP Arnulfo Jordan MD LAB POCT ORDERABLES - DEVIC E Final Result Performing Organization Address [facility] de Phone Number [facility] [address] [facility] [place] [address] * (ABNORMAL) POCT glucose (09/30/2024 4:52 PM PATIENT SERVICE REP) Glucose, POC 213(H) 70 - 199 mg/dL Comment: For Glucose values <35 mg/dl when Hematocrit is >60 mg/dl,the test may not accurately detect significant hypoglycemia,and testing in the Laboratory should be considered if clinically indicated. Blood 09/30/2024 4:52 PM PATIENT SERVICE REP 09/30/2024 4:52 PM PATIENT SERVICE REP Arnulfo Jordan MD LAB POCT ORDERABLES - DEVIC E Final Result Performing Organization Address [facility] de Phone Number [facility] [address] [facility] [place] [address] * POCT glucose (09/30/2024 11:39 AM PATIENT SERVICE REP) Glucose, POC 139 70 - 199 mg/dL Comment: For Glucose values <35 mg/dl when Hematocrit is >60 mg/dl,the test may not accurately detect significant hypoglycemia,and testing in the Laboratory should be considered if clinically indicated. Blood 09/30/2024 11:3 9 AM PATIENT SERVICE REP 09/30/2024 11:39 AM PATIENT SERVICE REP Result [facility] us Arnulfo Jordan MD LAB POCT ORDERABLES - DEVIC E Final Result Performing Organization Address [facility] de Phone Number [facility] [address] [facility] [place] [address] * POCT glucose (09/30/2024 8:36 AM PATIENT SERVICE REP) Glucose, POC 116 70 - 199 mg/dL Comment: For Glucose values <35 mg/dl when Hematocrit is >60 mg/dl,the test may not accurately detect significant hypoglycemia,and testing in the Laboratory should be considered if clinically indicated. Blood 09/30/2024 8:36 AM PATIENT SERVICE REP 09/30/2024 8:36 AM PATIENT SERVICE REP us Arnulfo Jordan MD LAB POCT ORDERABLES - DEVIC E Final Result Performing Organization Address [facility]/ZIP Co de Phone Number [facility] [address] [facility] [place] [address] * POCT glucose (09/30/2024 5:29 AM PATIENT SERVICE REP) Glucose, POC 110 70 - 199 mg/dL Comment: For Glucose values <35 mg/dl when Hematocrit is >60 mg/dl,the test may not accurately detect significant hypoglycemia,and testing in the Laboratory should be considered if clinically indicated. Blood 09/30/2024 5:29 AM PATIENT SERVICE REP 09/30/2024 5:29 AM PATIENT SERVICE REP Arnulfo Jordan MD LAB POCT ORDERABLES - DEVIC E Final Result Performing Organization Address [facility] de Phone Number [facility] [address] [facility] [place] [address] * POCT glucose (09/30/2024 2:22 AM PATIENT SERVICE REP) Glucose, POC 183 70 - 199 mg/dL Comment: For Glucose values <35 mg/dl when Hematocrit is >60 mg/dl,the test may not accurately detect significant hypoglycemia,and testing in the Laboratory should be considered if clinically indicated. Blood 09/30/2024 2:22 AM PATIENT SERVICE REP 09/30/2024 2:22 AM PATIENT SERVICE REP Arnulfo Jordan MD LAB POCT ORDERABLES - DEVIC E Final Result Performing Organization Address [facility] Co de Phone Number [facility] [address] [facility] [place] [address] * POCT glucose (09/29/2024 8:35 PM PATIENT SERVICE REP) Glucose, POC 192 70 - 199 mg/dL Comment: For Glucose values <35 mg/dl when Hematocrit is >60 mg/dl,the test may not accurately detect significant hypoglycemia,and testing in the Laboratory should be considered if clinically indicated. Blood 09/29/2024 8:35 PM PATIENT SERVICE REP 09/29/2024 8:35 PM PATIENT SERVICE REP Arnulfo Jordan MD LAB POCT ORDERABLES - DEVIC E Final Result Performing Organization Address [facility] Co de Phone Number [facility] [address] Department [place] [address] * (ABNORMAL) POCT glucose (09/29/2024 5:35 PM PATIENT SERVICE REP) Glucose, POC 203(H) 70 - 199 mg/dL Comment: For Glucose values <35 mg/dl when Hematocrit is >60 mg/dl,the test may not accurately detect significant hypoglycemia,and testing in the Laboratory should be considered if clinically indicated. Blood 09/29/2024 5:35 PM PATIENT SERVICE REP 09/29/2024 5:35 PM PATIENT SERVICE REP Arnulfo Jordan MD LAB POCT ORDERABLES - DEVIC E Final Result Performing Organization Address [facility] de Phone Number [facility] [address] Department [place] [address] * (ABNORMAL) eGFR (09/29/2024 3:33 PM PATIENT SERVICE REP) [facility] eGFR 58(L) >=60 mL/min/1. 73 m2 Comment: [...] last reviewed 2021. Blood 09/29/2024 3:33 PM PATIENT SERVICE REP 09/29/2024 3:45 PM PATIENT SERVICE REP us Arnulfo Jordan MD LAB BLOOD ORDERABLES Final Result [facility] [address] Department [place] [address] * (ABNORMAL) Differential, auto (09/29/2024 3:33 PM PATIENT SERVICE REP) Neutrophil abs 6.6(H) 1.5 - 6.5 K/cumm Imm gran abs 0.1 0.0 - 0.1 K/cumm [facility] Lymphocyte abs 0.9 0.8 - 3.3 K/cumm [facility] Monocyte abs 0.6 0.2 - 0.8 K/cumm [facility] Eosinophil abs 0.1 0.0 - 0.5 K/cumm [facility] Basophil abs 0.1 0.0 - 0.1 K/cumm [facility] Neutrophil pct 79.1 % [facility] Comment: Interpretive Data Percent cell count reference ranges are not reported, since discordance with absolute values may lead to misinterpretation of CBC data. Current Interpretive Data was last revised on 2017. Imm gran pct 0.6 % [facility] Comment: Interpretive Data Percent cell count reference ranges are not reported, since discordance with absolute values may lead to misinterpretation of CBC data. Current Interpretive Data was last revised on 2017. Lymphocyte pct 11.1 % [facility] Comment: Interpretive Data Percent cell count reference ranges are not reported, since discordance with absolute values may lead to misinterpretation of CBC data. Current Interpretive Data was last revised on 2017. Monocyte pct 7.6 % [facility] Comment: Interpretive Data Percent cell count reference ranges are not reported, since discordance with absolute values may lead to misinterpretation of CBC data. Current Interpretive Data was last revised on 2017. Eosinophil pct 0.6 % [facility] Comment: Interpretive Data Percent cell count reference ranges are not reported, since discordance with absolute values may lead to misinterpretation of CBC data. Current Interpretive Data was last revised on 2017. Basophil pct 1.0 % [facility] Comment: Interpretive Data Percent cell count reference ranges are not reported, since discordance with absolute values may lead to misinterpretation of CBC data. Current Interpretive Data was last revised on 2017. Blood 09/29/2024 3:33 PM PATIENT SERVICE REP 09/29/2024 3:45 PM PATIENT SERVICE REP us Arnulfo Jordan MD LAB BLOOD ORDERABLES Final Result [facility] [address] Department [place] [address] * (ABNORMAL) CBC with auto differential (09/29/2024 3:33 PM PATIENT SERVICE REP) WBC 8.3 3.8 - 9.9 K/cumm Hgb 7.8(L) 11.9 - 15.5 g/dL [facility] Hct 24.8(L) 35.6 - 45.5 % [facility] Plt 291 150 - 400 K/cumm [facility] MPV 10.9 9.1 - 12.3 fL [facility] RBC 2.59(L) 3.90 - 5.20 M/cumm [facility] MCV 95.8 81.3 - 96.4 fL [facility] MCH 30.1 27.1 - 33.3 pg [facility] MCHC 31.5(L) 32.3 - 35.7 g/dL [facility] RDW CV 16.6(H) 11.1 - 14.9 % [facility] RDW SD 56.7(H) 35.7 - 48.1 fL [facility] NRBC abs 0.02(H) 0.00 - 0.01 K/cumm [facility] Blood 09/29/2024 3:33 PM PATIENT SERVICE REP 09/29/2024 3:45 PM PATIENT SERVICE REP us Arnulfo Jordan MD LAB BLOOD ORDERABLES Final Result [facility] [address] Department [place] [address] * (ABNORMAL) Comprehensive metabolic panel (09/29/2024 3:33 PM PATIENT SERVICE REP) Sodium 141 135 - 145 mmol/L Potassium, pl 2.9(L) 3.3 - 4.9 mmol/L [facility] Chloride 110 97 - 110 mmol/L [facility] CO2 20(L) 22 - 32 mmol/L [facility] Anion gap 11 2 - 15 mmol/L [facility] BUN 19 6 - 25 mg/dL [facility] Creatinine 1.15(H) 0.60 - 1.10 mg/dL [facility] Glucose 207(H) 70 - 199 mg/dL [facility] Comment: Interpretive Data Fasting glucose >/= 126 [...] 2022. Calcium 7.7(L) 8.5 - 10.3 mg/dL [facility] Bilirubin, total 0.2 0.1 - 1.2 mg/dL [facility] Protein, pl 6.4(L) 6.5 - 8.5 g/dL [facility] Albumin 1.9(L) 3.5 - 5.0 g/dL [facility] Alk phos 170(H) 40 - 130 Units/L [facility] ALT 12 7 - 45 Units/L [facility] AST 27 10 - 45 Units/L [facility] Comment:Slightly Hemolyzed S pecimen Blood 09/29/2024 3:33 PM PATIENT SERVICE REP 09/29/2024 3:45 PM PATIENT SERVICE REP Arnulfo Jordan MD LAB BLOOD ORDERABLES Final Result Performing Organization Address [facility] Co de Phone Number [facility] [address] [facility] [place] [address] * POCT glucose (09/29/2024 1:43 PM PATIENT SERVICE REP) Glucose, POC 164 70 - 199 mg/dL Comment: For Glucose values <35 mg/dl when Hematocrit is >60 mg/dl,the test may not accurately detect significant hypoglycemia,and testing in the Laboratory should be considered if clinically indicated. Blood 09/29/2024 1:43 PM PATIENT SERVICE REP 09/29/2024 1:43 PM PATIENT SERVICE REP Result [facility] Arnulfo Jordan MD LAB POCT ORDERABLES - DEVIC E Final Result Performing Organization Address [facility] de Phone Number [facility] [address] [facility] [place] [address] * POCT glucose (09/29/2024 9:49 AM PATIENT SERVICE REP) Glucose, POC 133 70 - 199 mg/dL Comment: For Glucose values <35 mg/dl when Hematocrit is >60 mg/dl,the test may not accurately detect significant hypoglycemia,and testing in the Laboratory should be considered if clinically indicated. Blood 09/29/2024 9:49 AM PATIENT SERVICE REP 09/29/2024 9:49 AM PATIENT SERVICE REP Result [facility] Arnulfo Jordan MD LAB POCT ORDERABLES - DEVIC E Final Result Performing Organization Address [facility] Co de Phone Number [facility] [address] [facility] [place], [place] [id number] * POCT glucose (09/29/2024 7:27 AM PATIENT SERVICE REP) Glucose, POC 114 70 - 199 mg/dL Comment: For Glucose values <35 mg/dl when Hematocrit is >60 mg/dl,the test may not accurately detect significant hypoglycemia,and testing in the Laboratory should be considered if clinically indicated. Blood 09/29/2024 7:27 AM PATIENT SERVICE REP 09/29/2024 7:27 AM PATIENT SERVICE REP Arnulfo Jordan MD LAB POCT ORDERABLES - DEVIC E Final Result Performing Organization Address [facility] de Phone Number [facility] [address] [facility] [place] [address] * POCT glucose (09/29/2024 5:31 AM PATIENT SERVICE REP) Glucose, POC 115 70 - 199 mg/dL Comment: For Glucose values <35 mg/dl when Hematocrit is >60 mg/dl,the test may not accurately detect significant hypoglycemia,and testing in the Laboratory should be considered if clinically indicated. Blood 09/29/2024 5:31 AM PATIENT SERVICE REP 09/29/2024 5:31 AM PATIENT SERVICE REP Arnulfo Jordan MD LAB POCT ORDERABLES - DEVIC E Final Result Performing Organization Address [facility] de Phone Number [facility] [address] [facility] [place] [address] * POCT glucose (09/29/2024 1:25 AM PATIENT SERVICE REP) Glucose, POC 108 70 - 199 mg/dL Comment: For Glucose values <35 mg/dl when Hematocrit is >60 mg/dl,the test may not accurately detect significant hypoglycemia,and testing in the Laboratory should be considered if clinically indicated. Blood 09/29/2024 1:25 AM PATIENT SERVICE REP 09/29/2024 1:25 AM PATIENT SERVICE REP us Arnulfo Jordan MD LAB POCT ORDERABLES - DEVIC E Final Result Performing Organization Address [facility] de Phone Number [facility] [address] [place] [address] * POCT glucose (09/28/2024 9:14 PM PATIENT SERVICE REP) Glucose, POC 106 70 - 199 mg/dL Comment: For Glucose values <35 mg/dl when Hematocrit is >60 mg/dl,the test may not accurately detect significant hypoglycemia,and testing in the Laboratory should be considered if clinically indicated. Blood 09/28/2024 9:14 PM PATIENT SERVICE REP 09/28/2024 9:14 PM PATIENT SERVICE REP Arnulfo Jordan MD LAB POCT ORDERABLES - DEVIC E Final Result Performing Organization Address City/[facility]/ZIP Co de Phone Number [facility] [address] [place] [address] * POCT glucose (09/28/2024 5:12 PM PATIENT SERVICE REP) Glucose, POC 161 70 - 199 mg/dL Comment: For Glucose values <35 mg/dl when Hematocrit is >60 mg/dl,the test may not accurately detect significant hypoglycemia,and testing in the Laboratory should be considered if clinically indicated. Blood 09/28/2024 5:12 PM PATIENT SERVICE REP 09/28/2024 5:12 PM PATIENT SERVICE REP Arnulfo Jordan MD LAB POCT ORDERABLES - DEVIC E Final Result Performing Organization Address [facility]/ZIP Co de Phone Number [facility] [address] [place] [address] * POCT glucose (09/28/2024 1:43 PM PATIENT SERVICE REP) Glucose, POC 173 70 - 199 mg/dL Comment: For Glucose values <35 mg/dl when Hematocrit is >60 mg/dl,the test may not accurately detect significant hypoglycemia,and testing in the Laboratory should be considered if clinically indicated. Blood 09/28/2024 1:43 PM PATIENT SERVICE REP 09/28/2024 1:43 PM PATIENT SERVICE REP Arnulfo Jordan MD LAB POCT ORDERABLES - DEVIC E Final Result Performing Organization Address [facility] Co de Phone Number [facility] [address] [facility] [place] [address] * POCT glucose (09/28/2024 9:16 AM PATIENT SERVICE REP) Glucose, POC 124 70 - 199 mg/dL Comment: For Glucose values <35 mg/dl when Hematocrit is >60 mg/dl,the test may not accurately detect significant hypoglycemia,and testing in the Laboratory should be considered if clinically indicated. Blood 09/28/2024 9:16 AM PATIENT SERVICE REP 09/28/2024 9:16 AM PATIENT SERVICE REP Arnulfo Jordan MD LAB POCT ORDERABLES - DEVIC E Final Result Performing Organization Address [facility] Co de Phone Number [facility] [address] Department [place] [address] * (ABNORMAL) eGFR (09/28/2024 7:09 AM PATIENT SERVICE REP) Pathologist [facility] eGFR 58(L) >=60 mL/min/1. [...] last reviewed 2021. Blood 09/28/2024 7:09 AM PATIENT SERVICE REP 09/28/2024 7:45 AM PATIENT SERVICE REP Arnulfo Jordan MD LAB BLOOD ORDERABLES Final Result [facility] [address] Department [place] [address] * (ABNORMAL) Differential, auto (09/28/2024 7:09 AM PATIENT SERVICE REP) Neutrophil abs 5.7 1.5 - 6.5 K/cumm Imm gran abs 0.0 0.0 - 0.1 K/cumm [facility] Lymphocyte abs 0.7(L) 0.8 - 3.3 K/cumm [facility] Monocyte abs 0.5 0.2 - 0.8 K/cumm [facility] Eosinophil abs 0.1 0.0 - 0.5 K/cumm [facility] Basophil abs 0.1 0.0 - 0.1 K/cumm [facility] Neutrophil pct 80.9 % [facility] Comment: Interpretive Data Percent cell count reference ranges are not reported, since discordance with absolute values may lead to misinterpretation of CBC data. Current Interpretive Data was last revised on 2017. Imm gran pct 0.4 % [facility] Comment: Interpretive Data Percent cell count reference ranges are not reported, since discordance with absolute values may lead to misinterpretation of CBC data. Current Interpretive Data was last revised on 2017. Lymphocyte pct 9.3 % [facility] Comment: Interpretive Data Percent cell count reference ranges are not reported, since discordance with absolute values may lead to misinterpretation of CBC data. Current Interpretive Data was last revised on 2017. Monocyte pct 6.9 % [facility] Comment: Interpretive Data Percent cell count reference ranges are not reported, since discordance with absolute values may lead to misinterpretation of CBC data. Current Interpretive Data was last revised on 2017. Eosinophil pct 1.5 % [facility] Comment: Interpretive Data Percent cell count reference ranges are not reported, since discordance with absolute values may lead to misinterpretation of CBC data. Current Interpretive Data was last revised on 2017. Basophil pct 1.0 % [facility] Comment: Interpretive Data Percent cell count reference ranges are not reported, since discordance with absolute values may lead to misinterpretation of CBC data. Current Interpretive Data was last revised on 2017. Blood 09/28/2024 7:09 AM PATIENT SERVICE REP 09/28/2024 7:45 AM PATIENT SERVICE REP Arnulfo Jordan MD LAB BLOOD ORDERABLES Final Result Performing Organization Address [facility]/ZIP Co de Phone Number [facility] [address] Department [place] [address] * (ABNORMAL) CBC with auto differential (09/28/2024 7:09 AM PATIENT SERVICE REP) WBC 7.1 3.8 - 9.9 K/cumm Hgb 7.3(L) 11.9 - 15.5 g/dL [facility] Hct 24.5(L) 35.6 - 45.5 % [facility] Plt 285 150 - 400 K/cumm [facility] MPV 11.3 9.1 - 12.3 fL [facility] RBC 2.54(L) 3.90 - 5.20 M/cumm [facility] MCV 96.5(H) 81.3 - 96.4 fL [facility] MCH 28.7 27.1 - 33.3 pg [facility] MCHC 29.8(L) 32.3 - 35.7 g/dL [facility] RDW CV 16.5(H) 11.1 - 14.9 % [facility] RDW SD 57.2(H) 35.7 - 48.1 fL [facility] NRBC abs 0.00 0.00 - 0.01 K/cumm [facility] Blood 09/28/2024 7:09 AM PATIENT SERVICE REP 09/28/2024 7:45 AM PATIENT SERVICE REP Arnulfo Jordan MD LAB BLOOD ORDERABLES Final Result Performing Organization Address [facility]/ZIP Co de Phone Number [facility] [address] Department [place] [address] * (ABNORMAL) Comprehensive metabolic panel (09/28/2024 7:09 AM PATIENT SERVICE REP) Sodium 142 135 - 145 mmol/L Potassium, pl 3.3 3.3 - 4.9 mmol/L [facility] Chloride 109 97 - 110 mmol/L [facility] CO2 21(L) 22 - 32 mmol/L [facility] Anion gap 12 2 - 15 mmol/L [facility] BUN 24 6 - 25 mg/dL [facility] Creatinine 1.15(H) 0.60 - 1.10 mg/dL [facility] Glucose 111 70 - 199 mg/dL [facility] Comment: Interpretive Data Fasting glucose >/= 126 [...] 2022. Calcium 8.1(L) 8.5 - 10.3 mg/dL [facility] Bilirubin, total 0.2 0.1 - 1.2 mg/dL [facility] Protein, pl 6.3(L) 6.5 - 8.5 g/dL [facility] Albumin 1.9(L) 3.5 - 5.0 g/dL [facility] Alk phos 163(H) 40 - 130 Units/L [facility] ALT 10 7 - 45 Units/L [facility] AST 28 10 - 45 Units/L [facility] Blood 09/28/2024 7:09 AM PATIENT SERVICE REP 09/28/2024 7:45 AM PATIENT SERVICE REP Arnulfo Jordan MD LAB BLOOD ORDERABLES Final Result Performing Organization Address [facility]/ZIP Co de Phone Number [facility] [address] [facility] [place] [address] * POCT glucose (09/28/2024 5:42 AM PATIENT SERVICE REP) Glucose, POC 123 70 - 199 mg/dL Comment: For Glucose values <35 mg/dl when Hematocrit is >60 mg/dl,the test may not accurately detect significant hypoglycemia,and testing in the Laboratory should be considered if clinically indicated. Blood 09/28/2024 5:42 AM PATIENT SERVICE REP 09/28/2024 5:42 AM PATIENT SERVICE REP Arnulfo Jordan MD LAB POCT ORDERABLES - DEVIC E Final Result Performing Organization Address [facility] de Phone Number [facility] [address] [facility] [place] [address] * POCT glucose (09/28/2024 1:31 AM PATIENT SERVICE REP) Glucose, POC 125 70 - 199 mg/dL Comment: For Glucose values <35 mg/dl when Hematocrit is >60 mg/dl,the test may not accurately detect significant hypoglycemia,and testing in the Laboratory should be considered if clinically indicated. Blood 09/28/2024 1:31 AM PATIENT SERVICE REP 09/28/2024 1:31 AM PATIENT SERVICE REP Arnulfo Jordan MD LAB POCT ORDERABLES - DEVIC E Final Result Performing Organization Address [facility] de Phone Number [facility] [address] [facility] [place] [address] * POCT glucose (09/27/2024 9:14 PM PATIENT SERVICE REP) Glucose, POC 136 70 - 199 mg/dL Comment: For Glucose values <35 mg/dl when Hematocrit is >60 mg/dl,the test may not accurately detect significant hypoglycemia,and testing in the Laboratory should be considered if clinically indicated. Blood 09/27/2024 9:14 PM PATIENT SERVICE REP 09/27/2024 9:14 PM PATIENT SERVICE REP Arnulfo Jordan MD LAB POCT ORDERABLES - DEVIC E Final Result Performing Organization Address [facility] de Phone Number [facility] [address] [place], [place] [id number] * POCT glucose (09/27/2024 5:25 PM PATIENT SERVICE REP) Glucose, POC 112 70 - 199 mg/dL Comment: For Glucose values <35 mg/dl when Hematocrit is >60 mg/dl,the test may not accurately detect significant hypoglycemia,and testing in the Laboratory should be considered if clinically indicated. Blood 09/27/2024 5:25 PM PATIENT SERVICE REP 09/27/2024 5:25 PM PATIENT SERVICE REP Arnulfo Jordan MD LAB POCT ORDERABLES - DEVIC E Final Result Performing Organization Address [facility] de Phone Number [facility] [address] [facility] [place] [address] * POCT glucose (09/27/2024 3:13 PM PATIENT SERVICE REP) Glucose, POC 101 70 - 199 mg/dL Comment: For Glucose values <35 mg/dl when Hematocrit is >60 mg/dl,the test may not accurately detect significant hypoglycemia,and testing in the Laboratory should be considered if clinically indicated. Blood 09/27/2024 3:13 PM PATIENT SERVICE REP 09/27/2024 3:13 PM PATIENT SERVICE REP Arnulfo Jordan MD LAB POCT ORDERABLES - DEVIC E Final Result Performing Organization Address [facility] de Phone Number [facility] [address] [facility] [place], [place] [phone] * [place] Modified Barium Swallow W Video (09/27/2024 2:20 PM PATIENT SERVICE REP) Anatomical Region Laterality Modality Head and Neck N/A Radio Fluoroscop y 09/27/2024 2:33 PM PATIENT SERVICE REP Impressions 09/27/2024 3:03 PM PATIENT SERVICE REP 1. There is flash laryngeal penetration with [...] Zion Rodriguez M.D. Narrative 09/27/2024 3:03 PM PATIENT SERVICE REP EXAMINATION: MODIFIED BARIUM SWALLOW 09/27/2024 HISTORY: Dysphagia. [...] Result * POCT glucose (09/27/2024 10:05 AM PATIENT SERVICE REP) [facility] Glucose, POC 89 70 - 199 mg/dL Comment: For Glucose values <35 mg/dl when Hematocrit is >60 mg/dl,the test may not accurately detect significant hypoglycemia,and testing in the Laboratory should be considered if clinically indicated. Blood 09/27/2024 10:0 5 AM PATIENT SERVICE REP 09/27/2024 10:05 AM PATIENT SERVICE REP Result [facility] Arnulfo Jordan MD LAB POCT ORDERABLES - DEVIC E Final Result [facility] [address] [place] [place] [address] * Iron profile - Add on lab test (09/27/2024 8:43 AM PATIENT SERVICE REP) [facility] Acceptable Yes Blood 09/27/2024 8:43 AM PATIENT SERVICE REP 09/27/2024 8:43 AM PATIENT SERVICE REP Narrative [facility] - 09/27/2024 8:44 AM PATIENT SERVICE REP Name of Test->Iron profile Arnulfo Jordan MD LAB BLOOD ORDERABLES Final Result [facility] [address] [employer] [place], [place] [id number] * POCT glucose (09/27/2024 5:57 AM PATIENT SERVICE REP) Pathologist [facility] Glucose, POC 74 70 - 199 mg/dL Comment: For Glucose values <35 mg/dl when Hematocrit is >60 mg/dl,the test may not accurately detect significant hypoglycemia,and testing in the Laboratory should be considered if clinically indicated. Blood 09/27/2024 5:57 AM PATIENT SERVICE REP 09/27/2024 5:57 AM PATIENT SERVICE REP Arnulfo Jordan MD LAB POCT ORDERABLES - DEVIC E Final Result [facility] [address] [place] [address] * (ABNORMAL) eGFR (09/27/2024 5:42 AM PATIENT SERVICE REP) [facility] eGFR 58(L) >=60 mL/min/1. 73 m2 Comment: [...] last reviewed 2021. Blood 09/27/2024 5:42 AM PATIENT SERVICE REP 09/27/2024 5:55 AM PATIENT SERVICE REP Arnulfo Jordan MD LAB BLOOD ORDERABLES Final Result [facility] [address] [place] [address] * (ABNORMAL) Differential, auto (09/27/2024 5:42 AM PATIENT SERVICE REP) Neutrophil abs 7.1(H) 1.5 - 6.5 K/cumm Imm gran abs 0.0 0.0 - 0.1 K/cumm [facility] Lymphocyte abs 0.7(L) 0.8 - 3.3 K/cumm [facility] Monocyte abs 0.6 0.2 - 0.8 K/cumm [facility] Eosinophil abs 0.2 0.0 - 0.5 K/cumm [facility] Basophil abs 0.1 0.0 - 0.1 K/cumm [facility] Neutrophil pct 80.9 % [facility] Comment: Interpretive Data Percent cell count reference ranges are not reported, since discordance with absolute values may lead to misinterpretation of CBC data. Current Interpretive Data was last revised on 2017. Imm gran pct 0.5 % [facility] Comment: Interpretive Data Percent cell count reference ranges are not reported, since discordance with absolute values may lead to misinterpretation of CBC data. Current Interpretive Data was last revised on 2017. Lymphocyte pct 8.4 % [facility] Comment: Interpretive Data Percent cell count reference ranges are not reported, since discordance with absolute values may lead to misinterpretation of CBC data. Current Interpretive Data was last revised on 2017. Monocyte pct 6.6 % [facility] Comment: Interpretive Data Percent cell count reference ranges are not reported, since discordance with absolute values may lead to misinterpretation of CBC data. Current Interpretive Data was last revised on 2017. Eosinophil pct 2.6 % [facility] Comment: Interpretive Data Percent cell count reference ranges are not reported, since discordance with absolute values may lead to misinterpretation of CBC data. Current Interpretive Data was last revised on 2017. Basophil pct 1.0 % [facility] Comment: Interpretive Data Percent cell count reference ranges are not reported, since discordance with absolute values may lead to misinterpretation of CBC data. Current Interpretive Data was last revised on 2017. Blood 09/27/2024 5:42 AM PATIENT SERVICE REP 09/27/2024 5:55 AM PATIENT SERVICE REP Arnulfo Jordan MD LAB BLOOD ORDERABLES Final Result Performing Organization Address [facility]/ZIP Co de Phone Number [facility] [address] [facility] [place] [address] * (ABNORMAL) Iron profile w/ IBC (09/27/2024 5:42 AM PATIENT SERVICE REP) [facility] Iron 25(L) 35 - 145 mcg/dL TIBC 156(L) 250 - 400 mcg/dL [facility] Transferrin saturation 16(L) 20 - 50 % [facility] Blood 09/27/2024 5:42 AM PATIENT SERVICE REP 09/27/2024 5:55 AM PATIENT SERVICE REP Arnulfo Jordan MD LAB BLOOD ORDERABLES Final Result Performing Organization Address [facility] Co de Phone Number [facility] [address] [place] [address] * (ABNORMAL) CBC with auto differential (09/27/2024 5:42 AM PATIENT SERVICE REP) [facility] WBC 8.8 3.8 - 9.9 K/cumm Hgb 7.2(L) 11.9 - 15.5 g/dL [facility] Hct 24.6(L) 35.6 - 45.5 % [facility] Plt 280 150 - 400 K/cumm [facility] MPV 11.4 9.1 - 12.3 fL [facility] RBC 2.60(L) 3.90 - 5.20 M/cumm [facility] MCV 94.6 81.3 - 96.4 fL [facility] MCH 27.7 27.1 - 33.3 pg [facility] MCHC 29.3(L) 32.3 - 35.7 g/dL [facility] RDW CV 16.1(H) 11.1 - 14.9 % [facility] RDW SD 54.5(H) 35.7 - 48.1 fL [facility] NRBC abs 0.00 0.00 - 0.01 K/cumm [facility] Blood 09/27/2024 5:42 AM PATIENT SERVICE REP 09/27/2024 5:55 AM PATIENT SERVICE REP Arnulfo Jordan MD LAB BLOOD ORDERABLES Final Result [facility] [address] Department [place] [address] * (ABNORMAL) Comprehensive metabolic panel (09/27/2024 5:42 AM PATIENT SERVICE REP) Sodium 143 135 - 145 mmol/L Potassium, pl 3.4 3.3 - 4.9 mmol/L [facility] Chloride 110 97 - 110 mmol/L [facility] CO2 22 22 - 32 mmol/L [facility] Anion gap 11 2 - 15 mmol/L [facility] BUN 25 6 - 25 mg/dL [facility] Creatinine 1.16(H) 0.60 - 1.10 mg/dL [facility] Glucose 77 70 - 199 mg/dL [facility] Comment: Interpretive Data Fasting glucose >/= 126 [...] 2022. Calcium 8.0(L) 8.5 - 10.3 mg/dL [facility] Bilirubin, total 0.3 0.1 - 1.2 mg/dL [facility] Protein, pl 6.0(L) 6.5 - 8.5 g/dL [facility] Albumin 2.1(L) 3.5 - 5.0 g/dL [facility] Alk phos 152(H) 40 - 130 Units/L [facility] ALT 12 7 - 45 Units/L [facility] AST 31 10 - 45 Units/L [facility] Blood 09/27/2024 5:42 AM PATIENT SERVICE REP 09/27/2024 5:55 AM PATIENT SERVICE REP Arnulfo Jordan MD LAB BLOOD ORDERABLES Final Result Performing Organization Address [facility] Co de Phone Number [facility] [address] [facility] [place] [address] * POCT glucose (09/27/2024 2:14 AM PATIENT SERVICE REP) Glucose, POC 78 70 - 199 mg/dL Comment: For Glucose values <35 mg/dl when Hematocrit is >60 mg/dl,the test may not accurately detect significant hypoglycemia,and testing in the Laboratory should be considered if clinically indicated. Blood 09/27/2024 2:14 AM PATIENT SERVICE REP 09/27/2024 2:14 AM PATIENT SERVICE REP Arnulfo Jordan MD LAB POCT ORDERABLES - DEVIC E Final Result Performing Organization Address [facility] Co de Phone Number [facility] [address] [facility] [place] [address] * POCT glucose (09/26/2024 9:41 PM PATIENT SERVICE REP) Glucose, POC 79 70 - 199 mg/dL Comment: For Glucose values <35 mg/dl when Hematocrit is >60 mg/dl,the test may not accurately detect significant hypoglycemia,and testing in the Laboratory should be considered if clinically indicated. Blood 09/26/2024 9:41 PM PATIENT SERVICE REP 09/26/2024 9:41 PM PATIENT SERVICE REP Arnulfo Jordan MD LAB POCT ORDERABLES - DEVIC E Final Result Performing Organization Address [facility] Co de Phone Number [facility] [address] [facility] [place] [address] * POCT glucose (09/26/2024 6:18 PM PATIENT SERVICE REP) Glucose, POC 91 70 - 199 mg/dL Comment: For Glucose values <35 mg/dl when Hematocrit is >60 mg/dl,the test may not accurately detect significant hypoglycemia,and testing in the Laboratory should be considered if clinically indicated. Blood 09/26/2024 6:18 PM PATIENT SERVICE REP 09/26/2024 6:18 PM PATIENT SERVICE REP Arnulfo Jordan MD LAB POCT ORDERABLES - DEVIC E Final Result Performing Organization Address [facility] Co de Phone Number [facility] [address] Department [place] [address] * POCT glucose (09/26/2024 2:51 PM PATIENT SERVICE REP) [facility] Glucose, POC 89 70 - 199 mg/dL Comment: For Glucose values <35 mg/dl when Hematocrit is >60 mg/dl,the test may not accurately detect significant hypoglycemia,and testing in the Laboratory should be considered if clinically indicated. Blood 09/26/2024 2:51 PM PATIENT SERVICE REP 09/26/2024 2:51 PM PATIENT SERVICE REP Arnulfo Jordan MD LAB POCT ORDERABLES - DEVIC E Final Result Performing Organization Address [facility] Co de Phone Number [facility] [address] [place] [address] * (ABNORMAL) CBC with auto differential (09/26/2024 2:03 PM PATIENT SERVICE REP) [facility] WBC 8.6 3.8 - 9.9 K/cumm Hgb 7.3(L) 11.9 - 15.5 g/dL [facility] Hct 24.2(L) 35.6 - 45.5 % [facility] Plt 308 150 - 400 K/cumm [facility] MPV 11.5 9.1 - 12.3 fL [facility] RBC 2.52(L) 3.90 - 5.20 M/cumm [facility] MCV 96.0 81.3 - 96.4 fL [facility] MCH 29.0 27.1 - 33.3 pg [facility] MCHC 30.2(L) 32.3 - 35.7 g/dL [facility] RDW CV 16.0(H) 11.1 - 14.9 % [facility] RDW SD 55.1(H) 35.7 - 48.1 fL [facility] NRBC abs 0.00 0.00 - 0.01 K/cumm [facility] Blood 09/26/2024 2:03 PM PATIENT SERVICE REP 09/26/2024 2:11 PM PATIENT SERVICE REP Arnulfo Jordan MD LAB BLOOD ORDERABLES Final Result [facility] [address] Department [place] [address] * (ABNORMAL) eGFR (09/26/2024 1:25 PM PATIENT SERVICE REP) eGFR 57(L) >=60 mL/min/1. 73 m2 Comment: [...] last reviewed 2021. Blood 09/26/2024 1:25 PM PATIENT SERVICE REP 09/26/2024 1:33 PM PATIENT SERVICE REP us Arnulfo Jordan MD LAB BLOOD ORDERABLES Final Result [facility] [address] Department [place] [address] * Differential, auto (09/26/2024 1:25 PM PATIENT SERVICE REP) Neutrophil abs See Comment 1.5 - 6.5 Comment:CBC to be recollecte d due to possible falsely low Hgb on09/26/2024 13:53:40 PATIENT SERVICE REP [id number] Imm gran abs See Comment 0.0 - 0.1 [facility] Comment:CBC to be recollecte d due to possible falsely low Hgb on09/26/2024 13:53:40 PATIENT SERVICE REP [id number] Lymphocyte abs See Comment 0.8 - 3.3 [facility] Comment:CBC to be recollecte d due to possible falsely low Hgb on09/26/2024 13:53:40 PATIENT SERVICE REP [id number] Monocyte abs See Comment 0.2 - 0.8 [facility] Comment:CBC to be recollecte d due to possible falsely low Hgb on09/26/2024 13:53:40 PATIENT SERVICE REP [id number] Eosinophil abs See Comment 0.0 - 0.5 [facility] Comment:CBC to be recollecte d due to possible falsely low Hgb on09/26/2024 13:53:40 PATIENT SERVICE REP [id number] Basophil abs See Comment 0.0 - 0.1 [facility] Comment:CBC to be recollecte d due to possible falsely low Hgb on09/26/2024 13:53:40 PATIENT SERVICE REP [id number] Neutrophil pct See Comment [facility] Comment: CBC to be recollected due to possible falsely low Hgb on09/26/2024 13:53:40 PATIENT SERVICE REP [id number] Interpretive Data Percent cell count reference ranges are not reported, since discordance with absolute values may lead to misinterpretation of CBC data. Current Interpretive Data was last revised on 2017. Imm gran pct See Comment [facility] Comment: CBC to be recollected due to possible falsely low Hgb on09/26/2024 13:53:40 PATIENT SERVICE REP [id number] Interpretive Data Percent cell count reference ranges are not reported, since discordance with absolute values may lead to misinterpretation of CBC data. Current Interpretive Data was last revised on 2017. Lymphocyte pct See Comment [facility] Comment: CBC to be recollected due to possible falsely low Hgb on09/26/2024 13:53:40 PATIENT SERVICE REP [id number] Interpretive Data Percent cell count reference ranges are not reported, since discordance with absolute values may lead to misinterpretation of CBC data. Current Interpretive Data was last revised on 2017. Monocyte pct See Comment [facility] Comment: CBC to be recollected due to possible falsely low Hgb on09/26/2024 13:53:40 PATIENT SERVICE REP [id number] Interpretive Data Percent cell count reference ranges are not reported, since discordance with absolute values may lead to misinterpretation of CBC data. Current Interpretive Data was last revised on 2017. Eosinophil pct See Comment [facility] Comment: CBC to be recollected due to possible falsely low Hgb on09/26/2024 13:53:40 PATIENT SERVICE REP [id number] Interpretive Data Percent cell count reference ranges are not reported, since discordance with absolute values may lead to misinterpretation of CBC data. Current Interpretive Data was last revised on 2017. Basophil pct See Comment [facility] Comment: CBC to be recollected due to possible falsely low Hgb on09/26/2024 13:53:40 PATIENT SERVICE REP [id number] Interpretive Data Percent cell count reference ranges are not reported, since discordance with absolute values may lead to misinterpretation of CBC data. Current Interpretive Data was last revised on 2017. Blood 09/26/2024 1:25 PM PATIENT SERVICE REP 09/26/2024 1:33 PM PATIENT SERVICE REP us Arnulfo Jordan MD LAB BLOOD ORDERABLES Edited Result - Final [facility] [address] Department [place] [address] * CBC with auto differential (09/26/2024 1:25 PM PATIENT SERVICE REP) WBC See Comment 3.8 - 9.9 Comment: Test results inaccurately filed to this patient's record. Test will be credited. CBC to be recollected due to possible falsely low Hgb on09/26/2024 13:53:40 PATIENT SERVICE REP [id number] Hgb See Comment 11.9 - 15.5 [facility] Comment: Test results inaccurately filed to this patient's record. Test will be credited. CBC to be recollected due to possible falsely low Hgb on09/26/2024 13:53:40 PATIENT SERVICE REP [id number] Hct See Comment 35.6 - 45.5 [facility] Comment: Test results inaccurately filed to this patient's record. Test will be credited. CBC to be recollected due to possible falsely low Hgb on09/26/2024 13:53:40 PATIENT SERVICE REP [id number] Plt See Comment 150 - 400 K/cumm [facility] Comment: Test results inaccurately filed to this patient's record. Test will be credited. CBC to be recollected due to possible falsely low Hgb on09/26/2024 13:53:40 PATIENT SERVICE REP [id number] MPV See Comment 9.1 - 12.3 [facility] Comment: Test results inaccurately filed to this patient's record. Test will be credited. CBC to be recollected due to possible falsely low Hgb on09/26/2024 13:53:40 PATIENT SERVICE REP [id number] RBC See Comment 3.90 - 5.20 [facility] Comment: Test results inaccurately filed to this patient's record. Test will be credited. CBC to be recollected due to possible falsely low Hgb on09/26/2024 13:53:40 PATIENT SERVICE REP [id number] MCV See Comment 81.3 - 96.4 [facility] Comment: Test results inaccurately filed to this patient's record. Test will be credited. CBC to be recollected due to possible falsely low Hgb on09/26/2024 13:53:40 PATIENT SERVICE REP [id number] MCH See Comment 27.1 - 33.3 [facility] Comment: Test results inaccurately filed to this patient's record. Test will be credited. CBC to be recollected due to possible falsely low Hgb on09/26/2024 13:53:40 PATIENT SERVICE REP [id number] MCHC See Comment 32.3 - 35.7 [facility] Comment: Test results inaccurately filed to this patient's record. Test will be credited. CBC to be recollected due to possible falsely low Hgb on09/26/2024 13:53:40 PATIENT SERVICE REP [id number] RDW CV See Comment 11.1 - 14.9 [facility] Comment: Test results inaccurately filed to this patient's record. Test will be credited. CBC to be recollected due to possible falsely low Hgb on09/26/2024 13:53:40 PATIENT SERVICE REP [id number] RDW SD See Comment 35.7 - 48.1 [facility] Comment: Test results inaccurately filed to this patient's record. Test will be credited. CBC to be recollected due to possible falsely low Hgb on09/26/2024 13:53:40 PATIENT SERVICE REP [id number] NRBC abs See Comment 0.00 - 0.01 K/cumm [facility] Comment:CBC to be recollecte d due to possible falsely low Hgb on09/26/2024 13:53:40 PATIENT SERVICE REP [id number] Blood 09/26/2024 1:25 PM PATIENT SERVICE REP 09/26/2024 1:33 PM PATIENT SERVICE REP Arnulfo Jordan MD LAB BLOOD ORDERABLES Edited Result - Final [facility] [address] Department [place] [address] * (ABNORMAL) Comprehensive metabolic panel (09/26/2024 1:25 PM PATIENT SERVICE REP) Sodium 142 135 - 145 mmol/L Potassium, pl 3.2(L) 3.3 - 4.9 mmol/L [facility] Chloride 112(H) 97 - 110 mmol/L [facility] CO2 21(L) 22 - 32 mmol/L [facility] Anion gap 9 2 - 15 mmol/L [facility] BUN 23 6 - 25 mg/dL [facility] Creatinine 1.18(H) 0.60 - 1.10 mg/dL [facility] Glucose 79 70 - 199 mg/dL [facility] Comment: Interpretive Data Fasting glucose >/= 126 [...] 2022. Calcium 7.4(L) 8.5 - 10.3 mg/dL [facility] Bilirubin, total 0.2 0.1 - 1.2 mg/dL [facility] Protein, pl 5.6(L) 6.5 - 8.5 g/dL [facility] Albumin 1.8(L) 3.5 - 5.0 g/dL [facility] Alk phos 135(H) 40 - 130 Units/L [facility] ALT 13 7 - 45 Units/L [facility] AST 32 10 - 45 Units/L [facility] Blood 09/26/2024 1:25 PM PATIENT SERVICE REP 09/26/2024 1:33 PM PATIENT SERVICE REP Arnulfo Jordan MD LAB BLOOD ORDERABLES Final Result [facility] [address] Department [place] [address] * POCT glucose (09/26/2024 10:10 AM PATIENT SERVICE REP) [facility] Glucose, POC 100 70 - 199 mg/dL Comment: For Glucose values <35 mg/dl when Hematocrit is >60 mg/dl,the test may not accurately detect significant hypoglycemia,and testing in the Laboratory should be considered if clinically indicated. Blood 09/26/2024 10:1 0 AM PATIENT SERVICE REP 09/26/2024 10:10 AM PATIENT SERVICE REP us Arnulfo Jordan MD LAB POCT ORDERABLES - DEVIC E Final Result Performing Organization Address [facility] Co de Phone Number [facility] [address] [place] [address] * POCT glucose (09/26/2024 5:04 AM PATIENT SERVICE REP) [facility] Glucose, POC 94 70 - 199 mg/dL Comment: For Glucose values <35 mg/dl when Hematocrit is >60 mg/dl,the test may not accurately detect significant hypoglycemia,and testing in the Laboratory should be considered if clinically indicated. Blood 09/26/2024 5:04 AM PATIENT SERVICE REP 09/26/2024 5:04 AM PATIENT SERVICE REP Result [facility] Arnulfo Jordan MD LAB POCT ORDERABLES - DEVIC E Final Result Performing Organization Address [facility] de Phone Number [facility] [address] [place] [address] * C. difficile testing Stool (09/26/2024 2:18 AM PATIENT SERVICE REP) [facility] GDH Result Negative Negative Toxin Result Negative Negative [facility] C. diff result Negative, free toxin Negative, free toxin [facility] C. diff interp Negative for toxigenic Clostridioides (Clostridium) difficile. Analysis was performed using a glutamate dehydrogenase antigen detection assay combined with a C. difficile toxin detection assay. [facility] Stool 09/26/2024 2:18 AM PATIENT SERVICE REP 09/26/2024 2:41 AM PATIENT SERVICE REP Result [facility] us Arnulfo Jordan MD LAB MICROBIOLOGY - GENERAL ORDERABLES Final Result Performing Organization Address [facility] Co de Phone Number [facility] [address] [place] [address] * POCT glucose (09/26/2024 12:01 AM PATIENT SERVICE REP) Glucose, POC 108 70 - 199 mg/dL Comment: For Glucose values <35 mg/dl when Hematocrit is >60 mg/dl,the test may not accurately detect significant hypoglycemia,and testing in the Laboratory should be considered if clinically indicated. Blood 09/26/2024 12:0 1 AM PATIENT SERVICE REP 09/26/2024 12:01 AM PATIENT SERVICE REP Result [facility] Arnulfo Jordan MD LAB POCT ORDERABLES - DEVIC E Final Result Performing Organization Address [facility] de Phone Number [facility] [address] [facility] [place] [address] * POCT glucose (09/25/2024 8:35 PM PATIENT SERVICE REP) Glucose, POC 92 70 - 199 mg/dL Comment: For Glucose values <35 mg/dl when Hematocrit is >60 mg/dl,the test may not accurately detect significant hypoglycemia,and testing in the Laboratory should be considered if clinically indicated. Blood 09/25/2024 8:35 PM PATIENT SERVICE REP 09/25/2024 8:35 PM PATIENT SERVICE REP Result [facility] Arnulfo Jordan MD LAB POCT ORDERABLES - DEVIC E Final Result Performing Organization Address [facility] Co de Phone Number [facility] [address] [facility] [place] [address] * POCT glucose (09/25/2024 4:36 PM PATIENT SERVICE REP) Glucose, POC 97 70 - 199 mg/dL Comment: For Glucose values <35 mg/dl when Hematocrit is >60 mg/dl,the test may not accurately detect significant hypoglycemia,and testing in the Laboratory should be considered if clinically indicated. Blood 09/25/2024 4:36 PM PATIENT SERVICE REP 09/25/2024 4:36 PM PATIENT SERVICE REP Result [facility] Arnulfo Jordan MD LAB POCT ORDERABLES - DEVIC E Final Result Performing Organization Address [facility]/ZIP Co de Phone Number [facility] [address] Department [place] [address] * POCT glucose (09/25/2024 11:55 AM PATIENT SERVICE REP) Glucose, POC 87 70 - 199 mg/dL Comment: For Glucose values <35 mg/dl when Hematocrit is >60 mg/dl,the test may not accurately detect significant hypoglycemia,and testing in the Laboratory should be considered if clinically indicated. Blood 09/25/2024 11:5 5 AM PATIENT SERVICE REP 09/25/2024 11:55 AM PATIENT SERVICE REP Arnulfo Maribell Jordan MD LAB POCT ORDERABLES - DEVIC E Final Result Performing Organization Address [facility] Co de Phone Number [facility] [address] Department [place] [address] * (ABNORMAL) eGFR (09/25/2024 8:32 AM PATIENT SERVICE REP) Pathologist [facility] eGFR 53(L) >=60 mL/min/1. [...] last reviewed 2021. Blood 09/25/2024 8:32 AM PATIENT SERVICE REP 09/25/2024 8:46 AM PATIENT SERVICE REP us Arnulfo Jordan MD LAB BLOOD ORDERABLES Final Result [facility] [address] Department [place] [address] * (ABNORMAL) Differential, auto (09/25/2024 8:32 AM PATIENT SERVICE REP) Neutrophil abs 7.2(H) 1.5 - 6.5 K/cumm Imm gran abs 0.1 0.0 - 0.1 K/cumm [facility] Lymphocyte abs 1.1 0.8 - 3.3 K/cumm [facility] Monocyte abs 0.7 0.2 - 0.8 K/cumm [facility] Eosinophil abs 0.2 0.0 - 0.5 K/cumm [facility] Basophil abs 0.1 0.0 - 0.1 K/cumm [facility] Neutrophil pct 78.5 % [facility] Comment: Interpretive Data Percent cell count reference ranges are not reported, since discordance with absolute values may lead to misinterpretation of CBC data. Current Interpretive Data was last revised on 2017. Imm gran pct 0.5 % [facility] Comment: Interpretive Data Percent cell count reference ranges are not reported, since discordance with absolute values may lead to misinterpretation of CBC data. Current Interpretive Data was last revised on 2017. Lymphocyte pct 11.6 % [facility] Comment: Interpretive Data Percent cell count reference ranges are not reported, since discordance with absolute values may lead to misinterpretation of CBC data. Current Interpretive Data was last revised on 2017. Monocyte pct 7.3 % [facility] Comment: Interpretive Data Percent cell count reference ranges are not reported, since discordance with absolute values may lead to misinterpretation of CBC data. Current Interpretive Data was last revised on 2017. Eosinophil pct 1.6 % [facility] Comment: Interpretive Data Percent cell count reference ranges are not reported, since discordance with absolute values may lead to misinterpretation of CBC data. Current Interpretive Data was last revised on 2017. Basophil pct 0.5 % [facility] Comment: Interpretive Data Percent cell count reference ranges are not reported, since discordance with absolute values may lead to misinterpretation of CBC data. Current Interpretive Data was last revised on 2017. Blood 09/25/2024 8:32 AM PATIENT SERVICE REP 09/25/2024 8:46 AM PATIENT SERVICE REP Arnulfo Jordan MD LAB BLOOD ORDERABLES Final Result Performing Organization Address [facility] Co de Phone Number [facility] [address] Department [place] [address] * POCT glucose (09/25/2024 8:32 AM PATIENT SERVICE REP) [facility] Glucose, POC 89 70 - 199 mg/dL Comment: For Glucose values <35 mg/dl when Hematocrit is >60 mg/dl,the test may not accurately detect significant hypoglycemia,and testing in the Laboratory should be considered if clinically indicated. Blood 09/25/2024 8:32 AM PATIENT SERVICE REP 09/25/2024 8:32 AM PATIENT SERVICE REP Arnulfo Jordan MD LAB POCT ORDERABLES - DEVIC E Final Result Performing Organization Address [facility] de Phone Number [facility] [address] Department [place] [address] * (ABNORMAL) CBC with auto differential (09/25/2024 8:32 AM PATIENT SERVICE REP) [facility] WBC 9.2 3.8 - 9.9 K/cumm Hgb 7.2(L) 11.9 - 15.5 g/dL [facility] Hct 24.6(L) 35.6 - 45.5 % [facility] Plt 259 150 - 400 K/cumm [facility] MPV 11.7 9.1 - 12.3 fL [facility] RBC 2.49(L) 3.90 - 5.20 M/cumm [facility] MCV 98.8(H) 81.3 - 96.4 fL [facility] MCH 28.9 27.1 - 33.3 pg [facility] MCHC 29.3(L) 32.3 - 35.7 g/dL [facility] RDW CV 15.8(H) 11.1 - 14.9 % [facility] RDW SD 55.9(H) 35.7 - 48.1 fL [facility] NRBC abs 0.00 0.00 - 0.01 K/cumm [facility] Blood 09/25/2024 8:32 AM PATIENT SERVICE REP 09/25/2024 8:46 AM PATIENT SERVICE REP us Arnulfo Jordan MD LAB BLOOD ORDERABLES Final Result [facility] [address] Department [place] [address] * (ABNORMAL) Comprehensive metabolic panel (09/25/2024 8:32 AM PATIENT SERVICE REP) Sodium 143 135 - 145 mmol/L Potassium, pl 3.2(L) 3.3 - 4.9 mmol/L [facility] Chloride 111(H) 97 - 110 mmol/L [facility] CO2 20(L) 22 - 32 mmol/L [facility] Anion gap 12 2 - 15 mmol/L [facility] BUN 26(H) 6 - 25 mg/dL [facility] Creatinine 1.24(H) 0.60 - 1.10 mg/dL [facility] Glucose 85 70 - 199 mg/dL [facility] Comment: Interpretive Data Fasting glucose >/= 126 [...] 2022. Calcium 7.7(L) 8.5 - 10.3 mg/dL [facility] Bilirubin, total 0.2 0.1 - 1.2 mg/dL [facility] Protein, pl 5.8(L) 6.5 - 8.5 g/dL [facility] Albumin 1.9(L) 3.5 - 5.0 g/dL [facility] Alk phos 137(H) 40 - 130 Units/L [facility] ALT 13 7 - 45 Units/L [facility] AST 28 10 - 45 Units/L [facility] Blood 09/25/2024 8:32 AM PATIENT SERVICE REP 09/25/2024 8:46 AM PATIENT SERVICE REP Arnulfo Jordan MD LAB BLOOD ORDERABLES Final Result Performing Organization Address [facility] de Phone Number [facility] [address] Department [place] [address] * POCT glucose (09/25/2024 4:49 AM PATIENT SERVICE REP) Glucose, POC 86 70 - 199 mg/dL Comment: For Glucose values <35 mg/dl when Hematocrit is >60 mg/dl,the test may not accurately detect significant hypoglycemia,and testing in the Laboratory should be considered if clinically indicated. Blood 09/25/2024 4:49 AM PATIENT SERVICE REP 09/25/2024 4:49 AM PATIENT SERVICE REP Arnulfo Jordan MD LAB POCT ORDERABLES - DEVIC E Final Result Performing Organization Address [facility] Co de Phone Number [facility] [address] Department [place] [address] * POCT glucose (09/25/2024 12:48 AM PATIENT SERVICE REP) Glucose, POC 83 70 - 199 mg/dL Comment: For Glucose values <35 mg/dl when Hematocrit is >60 mg/dl,the test may not accurately detect significant hypoglycemia,and testing in the Laboratory should be considered if clinically indicated. Blood 09/25/2024 12:4 8 AM PATIENT SERVICE REP 09/25/2024 12:48 AM PATIENT SERVICE REP Arnulfo Jordan MD LAB POCT ORDERABLES - DEVIC E Final Result Performing Organization Address [facility] de Phone Number [facility] [address] [facility] [place] [address] * POCT glucose (09/24/2024 8:56 PM PATIENT SERVICE REP) Glucose, POC 83 70 - 199 mg/dL Comment: For Glucose values <35 mg/dl when Hematocrit is >60 mg/dl,the test may not accurately detect significant hypoglycemia,and testing in the Laboratory should be considered if clinically indicated. Blood 09/24/2024 8:56 PM PATIENT SERVICE REP 09/24/2024 8:56 PM PATIENT SERVICE REP Arnulfo Jordan MD LAB POCT ORDERABLES - DEVIC E Final Result Performing Organization Address [facility] de Phone Number [facility] [address] [facility] [place] [address] * POCT glucose (09/24/2024 4:20 PM PATIENT SERVICE REP) Glucose, POC 83 70 - 199 mg/dL Comment: For Glucose values <35 mg/dl when Hematocrit is >60 mg/dl,the test may not accurately detect significant hypoglycemia,and testing in the Laboratory should be considered if clinically indicated. Blood 09/24/2024 4:20 PM PATIENT SERVICE REP 09/24/2024 4:20 PM PATIENT SERVICE REP Arnulfo Jordan MD LAB POCT ORDERABLES - DEVIC E Final Result Performing Organization Address [facility] Co de Phone Number [facility] [address] [facility] [place] [address] * POCT glucose (09/24/2024 12:13 PM PATIENT SERVICE REP) Glucose, POC 91 70 - 199 mg/dL Comment: For Glucose values <35 mg/dl when Hematocrit is >60 mg/dl,the test may not accurately detect significant hypoglycemia,and testing in the Laboratory should be considered if clinically indicated. Blood 09/24/2024 12:1 3 PM PATIENT SERVICE REP 09/24/2024 12:13 PM PATIENT SERVICE REP us Arnulfo Jordan MD LAB POCT ORDERABLES - DEVIC E Final Result [facility] [address] Department [place] [address] * XR Chest 1 View (09/24/2024 8:18 AM PATIENT SERVICE REP) Anatomical Region Laterality Modality Body, Chest N/A Computed Radiogr aphy 09/24/2024 8:36 AM PATIENT SERVICE REP Impressions 09/24/2024 8:36 AM PATIENT SERVICE REP Patchy airspace opacities greatest in the left lung base but also projecting over the left hilum and to a lesser extent the right hilum are not substantially changed and likely representing multifocal pneumonia and/or sequela of aspiration. Trace left pleural effusion. No right pleural effusion. No pneumothorax. Heart size is stable. Electronically signed by: Nithin Gonzalez MD, PHD Narrative 09/24/2024 8:36 AM PATIENT SERVICE REP EXAMINATION: XR CHEST 1 VIEW HISTORY: Shortness [...] lt * POCT glucose (09/24/2024 4:12 AM PATIENT SERVICE REP) Glucose, POC 129 70 - 199 mg/dL Comment: For Glucose values <35 mg/dl when Hematocrit is >60 mg/dl,the test may not accurately detect significant hypoglycemia,and testing in the Laboratory should be considered if clinically indicated. Blood 09/24/2024 4:12 AM PATIENT SERVICE REP 09/24/2024 4:12 AM PATIENT SERVICE REP Result [facility] Arnulfo Jordan MD LAB POCT ORDERABLES - DEVIC E Final Result Performing Organization Address [facility] Co de Phone Number [facility] [address] [facility] [place] [address] * POCT glucose (09/24/2024 2:44 AM PATIENT SERVICE REP) Glucose, POC 132 70 - 199 mg/dL Comment: For Glucose values <35 mg/dl when Hematocrit is >60 mg/dl,the test may not accurately detect significant hypoglycemia,and testing in the Laboratory should be considered if clinically indicated. Blood 09/24/2024 2:44 AM PATIENT SERVICE REP 09/24/2024 2:44 AM PATIENT SERVICE REP Result [facility] Arnulfo Jordan MD LAB POCT ORDERABLES - DEVIC E Final Result Performing Organization Address [facility] Co de Phone Number [facility] [address] [facility] [place] [address] * (ABNORMAL) POCT glucose (09/24/2024 1:06 AM PATIENT SERVICE REP) Glucose, POC 59(L) 70 - 199 mg/dL Comment: For Glucose values <35 mg/dl when Hematocrit is >60 mg/dl,the test may not accurately detect significant hypoglycemia,and testing in the Laboratory should be considered if clinically indicated. Blood 09/24/2024 1:06 AM PATIENT SERVICE REP 09/24/2024 1:06 AM PATIENT SERVICE REP Result [facility] Arnulof Jordan MD LAB POCT ORDERABLES - DEVIC E Final Result Performing Organization Address [facility] Co de Phone Number [facility] [address] [facility] [place] [address] * (ABNORMAL) POCT glucose (09/24/2024 12:44 AM PATIENT SERVICE REP) Glucose, POC 65(L) 70 - 199 mg/dL Comment: For Glucose values <35 mg/dl when Hematocrit is >60 mg/dl,the test may not accurately detect significant hypoglycemia,and testing in the Laboratory should be considered if clinically indicated. Blood 09/24/2024 12:4 4 AM PATIENT SERVICE REP 09/24/2024 12:44 AM PATIENT SERVICE REP Arnulfo Jordan MD LAB POCT ORDERABLES - DEVIC E Final Result Performing Organization Address [facility] de Phone Number [facility] [address] [facility] [place] [address] * (ABNORMAL) POCT glucose (09/24/2024 12:22 AM PATIENT SERVICE REP) Glucose, POC 68(L) 70 - 199 mg/dL Comment: For Glucose values <35 mg/dl when Hematocrit is >60 mg/dl,the test may not accurately detect significant hypoglycemia,and testing in the Laboratory should be considered if clinically indicated. Blood 09/24/2024 12:2 2 AM PATIENT SERVICE REP 09/24/2024 12:22 AM PATIENT SERVICE REP Arnulfo Jordan MD LAB POCT ORDERABLES - DEVIC E Final Result Performing Organization Address [facility] Co de Phone Number [facility] [address] [place] [address] * POCT glucose (09/23/2024 9:34 PM PATIENT SERVICE REP) Glucose, POC 80 70 - 199 mg/dL Comment: For Glucose values <35 mg/dl when Hematocrit is >60 mg/dl,the test may not accurately detect significant hypoglycemia,and testing in the Laboratory should be considered if clinically indicated. Blood 09/23/2024 9:34 PM PATIENT SERVICE REP 09/23/2024 9:34 PM PATIENT SERVICE REP Guillermo Nair LAB POCT ORDERABLES - DE VICE Final Result Performing Organization Address [facility] Co de Phone Number [facility] [address] [facility] [place] [address] * POCT glucose (09/23/2024 4:10 PM PATIENT SERVICE REP) Glucose, POC 121 70 - 199 mg/dL Comment: For Glucose values <35 mg/dl when Hematocrit is >60 mg/dl,the test may not accurately detect significant hypoglycemia,and testing in the Laboratory should be considered if clinically indicated. Blood 09/23/2024 4:10 PM PATIENT SERVICE REP 09/23/2024 4:10 PM PATIENT SERVICE REP Guillermo Nair DO LAB POCT ORDERABLES - DE VICE Final Result Performing Organization Address [facility] de Phone Number [facility] [address] [facility] [place] [address] * POCT glucose (09/23/2024 1:10 PM PATIENT SERVICE REP) Glucose, POC 115 70 - 199 mg/dL Comment: For Glucose values <35 mg/dl when Hematocrit is >60 mg/dl,the test may not accurately detect significant hypoglycemia,and testing in the Laboratory should be considered if clinically indicated. Blood 09/23/2024 1:10 PM PATIENT SERVICE REP 09/23/2024 1:10 PM PATIENT SERVICE REP Flo Villagran MD LAB POCT ORDERABLES - DEVICE Final Result Performing Organization Address [facility] Co de Phone Number [facility] [address] [facility] [place] [address] * POCT glucose (09/23/2024 12:18 PM PATIENT SERVICE REP) Glucose, POC 83 70 - 199 mg/dL Comment: For Glucose values <35 mg/dl when Hematocrit is >60 mg/dl,the test may not accurately detect significant hypoglycemia,and testing in the Laboratory should be considered if clinically indicated. Blood 09/23/2024 12:1 8 PM PATIENT SERVICE REP 09/23/2024 12:18 PM PATIENT SERVICE REP Flo Villagran MD LAB POCT ORDERABLES - DEVICE Final Result Performing Organization Address [facility] Co de Phone Number [facility] [address] [facility] [place] [address] * (ABNORMAL) POCT glucose (09/23/2024 11:55 AM PATIENT SERVICE REP) Glucose, POC 69(L) 70 - 199 mg/dL Comment: For Glucose values <35 mg/dl when Hematocrit is >60 mg/dl,the test may not accurately detect significant hypoglycemia,and testing in the Laboratory should be considered if clinically indicated. Blood 09/23/2024 11:5 5 AM PATIENT SERVICE REP 09/23/2024 11:55 AM PATIENT SERVICE REP us Flo Villagran MD LAB POCT ORDERABLES - DEVICE Final Result Performing Organization Address [facility] Co de Phone Number [facility] [address] [facility] [place] [address] * (ABNORMAL) POCT glucose (09/23/2024 11:54 AM PATIENT SERVICE REP) Glucose, POC 63(L) 70 - 199 mg/dL Comment: For Glucose values <35 mg/dl when Hematocrit is >60 mg/dl,the test may not accurately detect significant hypoglycemia,and testing in the Laboratory should be considered if clinically indicated. Blood 09/23/2024 11:5 4 AM PATIENT SERVICE REP 09/23/2024 11:54 AM PATIENT SERVICE REP Flo Villagran MD LAB POCT ORDERABLES - DEVICE Final Result Performing Organization Address [facility] Co de Phone Number [facility] [address] [facility] [place] [address] * POCT glucose (09/23/2024 7:47 AM PATIENT SERVICE REP) Glucose, POC 71 70 - 199 mg/dL Comment: For Glucose values <35 mg/dl when Hematocrit is >60 mg/dl,the test may not accurately detect significant hypoglycemia,and testing in the Laboratory should be considered if clinically indicated. Blood 09/23/2024 7:47 AM PATIENT SERVICE REP 09/23/2024 7:47 AM PATIENT SERVICE REP Flo Villagran MD LAB POCT ORDERABLES - DEVICE Final Result Performing Organization Address [facility] de Phone Number [facility] [address] [facility] [place] [address] * POCT glucose (09/23/2024 3:27 AM PATIENT SERVICE REP) Glucose, POC 92 70 - 199 mg/dL Comment: For Glucose values <35 mg/dl when Hematocrit is >60 mg/dl,the test may not accurately detect significant hypoglycemia,and testing in the Laboratory should be considered if clinically indicated. Blood 09/23/2024 3:27 AM PATIENT SERVICE REP 09/23/2024 3:27 AM PATIENT SERVICE REP Flo Villagran MD LAB POCT ORDERABLES - DEVICE Final Result Performing Organization Address [facility] Co de Phone Number [facility] [address] [facility] [place] [address] * POCT glucose (09/23/2024 1:13 AM PATIENT SERVICE REP) Glucose, POC 113 70 - 199 mg/dL Comment: For Glucose values <35 mg/dl when Hematocrit is >60 mg/dl,the test may not accurately detect significant hypoglycemia,and testing in the Laboratory should be considered if clinically indicated. Blood 09/23/2024 1:13 AM PATIENT SERVICE REP 09/23/2024 1:13 AM PATIENT SERVICE REP Flo Villagran MD LAB POCT ORDERABLES - DEVICE Final Result Performing Organization Address [facility] Co de Phone Number [facility] [address] [place] [address] * POCT glucose (09/23/2024 12:17 AM PATIENT SERVICE REP) Glucose, POC 195 70 - 199 mg/dL Comment: For Glucose values <35 mg/dl when Hematocrit is >60 mg/dl,the test may not accurately detect significant hypoglycemia,and testing in the Laboratory should be considered if clinically indicated. Blood 09/23/2024 12:1 7 AM PATIENT SERVICE REP 09/23/2024 12:17 AM PATIENT SERVICE REP Flo Villagran MD LAB POCT ORDERABLES - DEVICE Final Result Performing Organization Address [facility] de Phone Number [facility] [address] [facility] [place] [address] * (ABNORMAL) POCT glucose (09/22/2024 11:54 PM PATIENT SERVICE REP) Glucose, POC 63(L) 70 - 199 mg/dL Comment: For Glucose values <35 mg/dl when Hematocrit is >60 mg/dl,the test may not accurately detect significant hypoglycemia,and testing in the Laboratory should be considered if clinically indicated. Blood 09/22/2024 11:5 4 PM PATIENT SERVICE REP 09/22/2024 11:54 PM PATIENT SERVICE REP Flo Villagran MD LAB POCT ORDERABLES - DEVICE Final Result Performing Organization Address [facility] Co de Phone Number [facility] [address] [place] [address] * (ABNORMAL) Blood gas, arterial (09/22/2024 8:33 PM PATIENT SERVICE REP) pH, Art 7.44 7.35 - 7.45 PCO2, Arterial 37 35 - 45 mmHg [facility] PO2, Arterial 81(L) 83 - 108 mmHg [facility] HCO3 Art (Calculated) 25 20 - 30 mmol/L [facility] BE, art 1 mmol/L [facility] Comment: Interpretive Data No Reference Range Established Current Interpretive Data was last revised on 2017 O2 Sat Art (Calculated) 96 94 - 98 % [facility] Blood 09/22/2024 8:33 PM PATIENT SERVICE REP 09/22/2024 8:36 PM PATIENT SERVICE REP us Chad Veras MD LAB BLOOD ORDERABLES Final R esult Performing Organization Address [facility] Co de Phone Number [facility] [address] [employer] [place], [place] [id number] * POCT glucose (09/22/2024 7:46 PM PATIENT SERVICE REP) Glucose, POC 95 70 - 199 mg/dL Comment: For Glucose values <35 mg/dl when Hematocrit is >60 mg/dl,the test may not accurately detect significant hypoglycemia,and testing in the Laboratory should be considered if clinically indicated. Blood 09/22/2024 7:46 PM PATIENT SERVICE REP 09/22/2024 7:46 PM PATIENT SERVICE REP us Flo Villagran MD LAB POCT ORDERABLES - DEVICE Final Result [facility] [address] [facility] [place] [address] * POCT glucose (09/22/2024 4:04 PM PATIENT SERVICE REP) Glucose, POC 166 70 - 199 mg/dL Comment: For Glucose values <35 mg/dl when Hematocrit is >60 mg/dl,the test may not accurately detect significant hypoglycemia,and testing in the Laboratory should be considered if clinically indicated. Blood 09/22/2024 4:04 PM PATIENT SERVICE REP 09/22/2024 4:04 PM PATIENT SERVICE REP Flo Villagran MD LAB POCT ORDERABLES - DEVICE Final Result Performing Organization Address [facility] de Phone Number [facility] [address] [place] [address] * POCT glucose (09/22/2024 11:51 AM PATIENT SERVICE REP) Glucose, POC 187 70 - 199 mg/dL Comment: For Glucose values <35 mg/dl when Hematocrit is >60 mg/dl,the test may not accurately detect significant hypoglycemia,and testing in the Laboratory should be considered if clinically indicated. Blood 09/22/2024 11:5 1 AM PATIENT SERVICE REP 09/22/2024 11:51 AM PATIENT SERVICE REP Flo Villagran MD LAB POCT ORDERABLES - DEVICE Final Result Performing Organization Address [facility] de Phone Number [facility] [address] [facility] [place] [address] * (ABNORMAL) POCT glucose (09/22/2024 8:42 AM PATIENT SERVICE REP) Glucose, POC 210(H) 70 - 199 mg/dL Comment: For Glucose values <35 mg/dl when Hematocrit is >60 mg/dl,the test may not accurately detect significant hypoglycemia,and testing in the Laboratory should be considered if clinically indicated. Blood 09/22/2024 8:42 AM PATIENT SERVICE REP 09/22/2024 8:42 AM PATIENT SERVICE REP Flo Villagran MD LAB POCT ORDERABLES - DEVICE Final Result Performing Organization Address [facility] de Phone Number [facility] [address] [facility] [place] [address] * POCT glucose (09/22/2024 4:05 AM PATIENT SERVICE REP) Glucose, POC 199 70 - 199 mg/dL Comment: For Glucose values <35 mg/dl when Hematocrit is >60 mg/dl,the test may not accurately detect significant hypoglycemia,and testing in the Laboratory should be considered if clinically indicated. Blood 09/22/2024 4:05 AM PATIENT SERVICE REP 09/22/2024 4:05 AM PATIENT SERVICE REP us Flo Villagran MD LAB POCT ORDERABLES - DEVICE Final Result [facility] [address] Department [place] [address] * XR Chest 1 View (09/22/2024 3:59 AM PATIENT SERVICE REP) Anatomical Region Laterality Modality Body, Chest N/A Computed Radiogr aphy 09/22/2024 9:18 AM PATIENT SERVICE REP Impressions 09/22/2024 9:18 AM PATIENT SERVICE REP The current study is compared with the [...] Blair Lopez M.D. Narrative 09/22/2024 9:18 AM PATIENT SERVICE REP EXAMINATION: XR CHEST 1 VIEW Procedure Note [...] lt * (ABNORMAL) eGFR (09/22/2024 2:24 AM PATIENT SERVICE REP) Pathologist [facility] eGFR 53(L) >=60 mL/min/1. [...] last reviewed 2021. Blood 09/22/2024 2:24 AM PATIENT SERVICE REP 09/22/2024 2:55 AM PATIENT SERVICE REP Flo Villagran MD LAB BLOOD ORDERABLES Final R esult [facility] [address] Department [place] [address] * (ABNORMAL) CBC without differential (09/22/2024 2:24 AM PATIENT SERVICE REP) Pathologist [facility] WBC 15.1(H) 3.8 - 9.9 K/cumm Hgb 7.5(L) 11.9 - 15.5 g/dL [facility] Hct 23.4(L) 35.6 - 45.5 % [facility] Plt 248 150 - 400 K/cumm [facility] MPV 12.5(H) 9.1 - 12.3 fL [facility] RBC 2.55(L) 3.90 - 5.20 M/cumm [facility] MCV 91.8 81.3 - 96.4 fL [facility] MCH 29.4 27.1 - 33.3 pg [facility] MCHC 32.1(L) 32.3 - 35.7 g/dL [facility] RDW CV 15.2(H) 11.1 - 14.9 % [facility] RDW SD 50.1(H) 35.7 - 48.1 fL [facility] NRBC abs 0.00 0.00 - 0.01 K/cumm [facility] Blood 09/22/2024 2:24 AM PATIENT SERVICE REP 09/22/2024 2:40 AM PATIENT SERVICE REP Flo Villagran MD LAB BLOOD ORDERABLES Final R esult Performing Organization Address [facility] Co de Phone Number [facility] [address] [place] [address] * Magnesium (09/22/2024 2:24 AM PATIENT SERVICE REP) [facility] Magnesium 2.0 1.4 - 2.5 mg/dL Blood 09/22/2024 2:24 AM PATIENT SERVICE REP 09/22/2024 2:55 AM PATIENT SERVICE REP Flo Villagran MD LAB BLOOD ORDERABLES Final R esult Performing Organization Address [facility] Co de Phone Number [facility] [address] Department [place] [address] * (ABNORMAL) Renal function panel (09/22/2024 2:24 AM PATIENT SERVICE REP) [facility] Sodium 140 135 - 145 mmol/L Potassium, pl 3.4 3.3 - 4.9 mmol/L [facility] Chloride 108 97 - 110 mmol/L [facility] CO2 20(L) 22 - 32 mmol/L [facility] Anion gap 12 2 - 15 mmol/L [facility] BUN 31(H) 6 - 25 mg/dL [facility] Creatinine 1.25(H) 0.60 - 1.10 mg/dL [facility] Glucose 189 70 - 199 mg/dL [facility] Comment: Interpretive Data Fasting glucose >/= 126 [...] 2022. Calcium 7.5(L) 8.5 - 10.3 mg/dL [facility] Phosphorus, pl 3.6 2.3 - 4.5 mg/dL [facility] Albumin 2.1(L) 3.5 - 5.0 g/dL [facility] Blood 09/22/2024 2:24 AM PATIENT SERVICE REP 09/22/2024 2:55 AM PATIENT SERVICE REP Flo Villagran MD LAB BLOOD ORDERABLES Final R esult [facility] [address] Department [place] [address] * POCT glucose (09/21/2024 11:58 PM PATIENT SERVICE REP) [facility] Signature Glucose, POC 177 70 - 199 mg/dL Comment: For Glucose values <35 mg/dl when Hematocrit is >60 mg/dl,the test may not accurately detect significant hypoglycemia,and testing in the Laboratory should be considered if clinically indicated. Blood 09/21/2024 11:5 8 PM PATIENT SERVICE REP 09/21/2024 11:58 PM PATIENT SERVICE REP Flo Villagran MD LAB POCT ORDERABLES - DEVICE Final Result Performing Organization Address [facility] de Phone Number [facility] [address] [facility] [place] [address] * POCT glucose (09/21/2024 7:01 PM PATIENT SERVICE REP) Glucose, POC 134 70 - 199 mg/dL Comment: For Glucose values <35 mg/dl when Hematocrit is >60 mg/dl,the test may not accurately detect significant hypoglycemia,and testing in the Laboratory should be considered if clinically indicated. Blood 09/21/2024 7:01 PM PATIENT SERVICE REP 09/21/2024 7:01 PM PATIENT SERVICE REP Flo Villagran MD LAB POCT ORDERABLES - DEVICE Final Result Performing Organization Address [facility] de Phone Number [facility] [address] [facility] [place] [address] * POCT glucose (09/21/2024 3:10 PM PATIENT SERVICE REP) Glucose, POC 140 70 - 199 mg/dL Comment: For Glucose values <35 mg/dl when Hematocrit is >60 mg/dl,the test may not accurately detect significant hypoglycemia,and testing in the Laboratory should be considered if clinically indicated. Blood 09/21/2024 3:10 PM PATIENT SERVICE REP 09/21/2024 3:10 PM PATIENT SERVICE REP Flo Villagran MD LAB POCT ORDERABLES - DEVICE Final Result Performing Organization Address [facility] de Phone Number [facility] [address] [place] [address] * Potassium (09/21/2024 2:07 PM PATIENT SERVICE REP) Potassium, pl 3.9 3.3 - 4.9 mmol/L Blood 09/21/2024 2:07 PM PATIENT SERVICE REP 09/21/2024 2:07 PM PATIENT SERVICE REP Flo Villagran MD LAB BLOOD ORDERABLES Final R esult Performing Organization Address [facility] Co de Phone Number [facility] [address] [facility] [place], [place] [id number] * (ABNORMAL) POCT glucose (09/21/2024 11:30 AM PATIENT SERVICE REP) Glucose, POC 200(H) 70 - 199 mg/dL Comment: For Glucose values <35 mg/dl when Hematocrit is >60 mg/dl,the test may not accurately detect significant hypoglycemia,and testing in the Laboratory should be considered if clinically indicated. Blood 09/21/2024 11:3 0 AM PATIENT SERVICE REP 09/21/2024 11:30 AM PATIENT SERVICE REP Flo Villagran MD LAB POCT ORDERABLES - DEVICE Final Result Performing Organization Address [facility] Co de Phone Number [facility] [address] [facility] [place] [address] * (ABNORMAL) POCT glucose (09/21/2024 7:19 AM PATIENT SERVICE REP) Glucose, POC 230(H) 70 - 199 mg/dL Comment: For Glucose values <35 mg/dl when Hematocrit is >60 mg/dl,the test may not accurately detect significant hypoglycemia,and testing in the Laboratory should be considered if clinically indicated. Blood 09/21/2024 7:19 AM PATIENT SERVICE REP 09/21/2024 7:19 AM PATIENT SERVICE REP Flo Villagran MD LAB POCT ORDERABLES - DEVICE Final Result Performing Organization Address [facility] Co de Phone Number [facility] [address] [facility] [place], [place] [id number] * XR Chest 1 View (09/21/2024 4:44 AM PATIENT SERVICE REP) Anatomical Region Laterality Modality Body, Chest N/A Computed Radiogr aphy 09/21/2024 7:37 AM PATIENT SERVICE REP Impressions 09/21/2024 7:37 AM PATIENT SERVICE REP Comparison is made to 2024. Endotracheal tube 2.7 cm above the jessenia. Nasogastric tube tip located with diaphragm, not included [id number]. There is slightly improved aeration within the left retrocardiac location likely representing improving aspiration/pneumonia. There is mild right basilar atelectasis. No pleural effusion or pneumothorax. Stable heart size. Electronically signed by: Ruiz Coles M.D. Narrative 09/21/2024 7:37 AM PATIENT SERVICE REP Examination: Chest 1 view Procedure Note Ruiz Coles MD - 09/21/2024 Examination: Chest 1 view IMPRESSION: Comparison is made to 2024. Endotracheal tube 2.7 cm above the jessenia. Nasogastric tube tip located with diaphragm, not included [id number]. There is slightly improved aeration within the left retrocardiac location likely representing improving aspiration/pneumonia. There is mild right basilar atelectasis. No pleural effusion or pneumothorax. Stable heart size. Electronically signed by: Ruzi Coles M.D. Flo Villagran MD IMG XR PROCEDURES Final Resu lt * (ABNORMAL) POCT glucose (09/21/2024 3:47 AM PATIENT SERVICE REP) [facility] Glucose, POC 235(H) 70 - 199 mg/dL Comment: For Glucose values <35 mg/dl when Hematocrit is >60 mg/dl,the test may not accurately detect significant hypoglycemia,and testing in the Laboratory should be considered if clinically indicated. Blood 09/21/2024 3:47 AM PATIENT SERVICE REP 09/21/2024 3:47 AM PATIENT SERVICE REP Flo Villagran MD LAB POCT ORDERABLES - DEVICE Final Result [facility] [address] Department [place] [address] * (ABNORMAL) eGFR (09/21/2024 1:48 AM PATIENT SERVICE REP) [facility] eGFR 50(L) >=60 mL/min/1. 73 m2 Comment: [...] last reviewed 2021. Blood 09/21/2024 1:48 AM PATIENT SERVICE REP 09/21/2024 2:06 AM PATIENT SERVICE REP us Flo Villagran MD LAB BLOOD ORDERABLES Final R esult [facility] [address] Department [place] [address] * (ABNORMAL) CBC without differential (09/21/2024 1:48 AM PATIENT SERVICE REP) [facility] WBC 13.1(H) 3.8 - 9.9 K/cumm Hgb 7.6(L) 11.9 - 15.5 g/dL [facility] Hct 24.6(L) 35.6 - 45.5 % [facility] Plt 229 150 - 400 K/cumm [facility] MPV 12.5(H) 9.1 - 12.3 fL [facility] RBC 2.65(L) 3.90 - 5.20 M/cumm [facility] MCV 92.8 81.3 - 96.4 fL [facility] MCH 28.7 27.1 - 33.3 pg [facility] MCHC 30.9(L) 32.3 - 35.7 g/dL [facility] RDW CV 15.5(H) 11.1 - 14.9 % [facility] RDW SD 51.8(H) 35.7 - 48.1 fL [facility] NRBC abs 0.00 0.00 - 0.01 K/cumm [facility] Blood 09/21/2024 1:48 AM PATIENT SERVICE REP 09/21/2024 2:06 AM PATIENT SERVICE REP Flo Villagran MD LAB BLOOD ORDERABLES Final R esult Performing Organization Address [facility] Co de Phone Number [facility] [address] [facility] [place] [address] * Phosphorus (09/21/2024 1:48 AM PATIENT SERVICE REP) Phosphorus, pl 3.2 2.3 - 4.5 mg/dL Blood 09/21/2024 1:48 AM PATIENT SERVICE REP 09/21/2024 2:06 AM PATIENT SERVICE REP Flo Villagran MD LAB BLOOD ORDERABLES Final R esult Performing Organization Address [facility] Co de Phone Number [facility] [address] [facility] [place] [address] * Magnesium (09/21/2024 1:48 AM PATIENT SERVICE REP) Magnesium 2.0 1.4 - 2.5 mg/dL Blood 09/21/2024 1:48 AM PATIENT SERVICE REP 09/21/2024 2:06 AM PATIENT SERVICE REP Flo Villagran MD LAB BLOOD ORDERABLES Final R esult Performing Organization Address [facility] Co de Phone Number [facility] [address] [facility] [place] [address] * Bilirubin, direct (09/21/2024 1:48 AM PATIENT SERVICE REP) Bilirubin, direct <0.2 0.1 - 0.3 mg/dL Blood 09/21/2024 1:48 AM PATIENT SERVICE REP 09/21/2024 2:06 AM PATIENT SERVICE REP Flo Villagran MD LAB BLOOD ORDERABLES Final R esult [facility] [address] Department of [facility] [place] [id number] * (ABNORMAL) Comprehensive metabolic panel (09/21/2024 1:48 AM PATIENT SERVICE REP) [facility] Sodium 144 135 - 145 mmol/L Potassium, pl 2.9(L) 3.3 - 4.9 mmol/L [facility] Chloride 112(H) 97 - 110 mmol/L [facility] CO2 19(L) 22 - 32 mmol/L [facility] Anion gap 13 2 - 15 mmol/L [facility] BUN 32(H) 6 - 25 mg/dL [facility] Creatinine 1.31(H) 0.60 - 1.10 mg/dL [facility] Glucose 259(H) 70 - 199 mg/dL [facility] Comment: Interpretive Data Fasting glucose >/= 126 [...] 2022. Calcium 7.4(L) 8.5 - 10.3 mg/dL [facility] Bilirubin, total 0.2 0.1 - 1.2 mg/dL [facility] Protein, pl 5.6(L) 6.5 - 8.5 g/dL [facility] Albumin 2.0(L) 3.5 - 5.0 g/dL [facility] Alk phos 135(H) 40 - 130 Units/L [facility] ALT 16 7 - 45 Units/L [facility] AST 23 10 - 45 Units/L [facility] Blood 09/21/2024 1:48 AM PATIENT SERVICE REP 09/21/2024 2:06 AM PATIENT SERVICE REP Flo Villagran MD LAB BLOOD ORDERABLES Final R esult Performing Organization Address [facility] de Phone Number [facility] [address] [facility] [place], [place] [phone] * (ABNORMAL) POCT glucose (09/20/2024 11:54 PM PATIENT SERVICE REP) Glucose, POC 264(H) 70 - 199 mg/dL Comment: For Glucose values <35 mg/dl when Hematocrit is >60 mg/dl,the test may not accurately detect significant hypoglycemia,and testing in the Laboratory should be considered if clinically indicated. Blood 09/20/2024 11:5 4 PM PATIENT SERVICE REP 09/20/2024 11:54 PM PATIENT SERVICE REP Flo Villagran MD LAB POCT ORDERABLES - DEVICE Final Result Performing Organization Address [facility] de Phone Number [facility] [address] [facility] [place], [place] [id number] * (ABNORMAL) POCT glucose (09/20/2024 7:03 PM PATIENT SERVICE REP) Glucose, POC 253(H) 70 - 199 mg/dL Comment: For Glucose values <35 mg/dl when Hematocrit is >60 mg/dl,the test may not accurately detect significant hypoglycemia,and testing in the Laboratory should be considered if clinically indicated. Blood 09/20/2024 7:03 PM PATIENT SERVICE REP 09/20/2024 7:03 PM PATIENT SERVICE REP Flo Villagran MD LAB POCT ORDERABLES - DEVICE Final Result Performing Organization Address [facility] de Phone Number [facility] [address] Department [place], [place] [phone] * POCT glucose (09/20/2024 3:28 PM PATIENT SERVICE REP) Glucose, POC 179 70 - 199 mg/dL Comment: For Glucose values <35 mg/dl when Hematocrit is >60 mg/dl,the test may not accurately detect significant hypoglycemia,and testing in the Laboratory should be considered if clinically indicated. Blood 09/20/2024 3:28 PM PATIENT SERVICE REP 09/20/2024 3:28 PM PATIENT SERVICE REP Flo Villagran MD LAB POCT ORDERABLES - DEVICE Final Result Performing Organization Address [facility] de Phone Number [facility] [address] [facility] [place] [address] * (ABNORMAL) POCT glucose (09/20/2024 11:48 AM PATIENT SERVICE REP) [facility] Glucose, POC 213(H) 70 - 199 mg/dL Comment: For Glucose values <35 mg/dl when Hematocrit is >60 mg/dl,the test may not accurately detect significant hypoglycemia,and testing in the Laboratory should be considered if clinically indicated. Blood 09/20/2024 11:4 8 AM PATIENT SERVICE REP 09/20/2024 11:48 AM PATIENT SERVICE REP Flo Villagran MD LAB POCT ORDERABLES - DEVICE Final Result Performing Organization Address [facility] Co de Phone Number [facility] [address] [place] [address] * (ABNORMAL) Blood gas, arterial (09/20/2024 10:54 AM PATIENT SERVICE REP) Pathologist [facility] pH, Art 7.43 7.35 - 7.45 PCO2, Arterial 30(L) 35 - 45 mmHg [facility] PO2, Arterial 82(L) 83 - 108 mmHg [facility] HCO3 Art (Calculated) 20 20 - 30 mmol/L [facility] BE, art -3 mmol/L [facility] Comment: Interpretive Data No Reference Range Established Current Interpretive Data was last revised on 2017 O2 Sat Art (Calculated) 96 94 - 98 % [facility] Blood 09/20/2024 10:5 4 AM PATIENT SERVICE REP 09/20/2024 10:57 AM PATIENT SERVICE REP us Flo Villagran MD LAB BLOOD ORDERABLES Final R esult [facility] [address] Department [place] [address] * XR Chest 1 View (09/20/2024 9:17 AM PATIENT SERVICE REP) Anatomical Region Laterality Modality Body, Chest N/A Computed Radiogr aphy 09/20/2024 10:0 9 AM PATIENT SERVICE REP Impressions 09/20/2024 10:09 AM PATIENT SERVICE REP Comparison to 09/17/2024. An endotracheal tube terminates approximately 2.5 cm above the jessenia. Endogastric tube coils in the peripyloric region. Bilateral airspace opacities, left greater than right, with mid to lower lung zone predominance has slightly improved. No pleural effusion or pneumothorax. Unchanged heart size. The Electronically signed by: Gibran Astudillo M.D. Narrative 09/20/2024 10:09 AM PATIENT SERVICE REP EXAMINATION: 1 view chest radiograph Procedure Note [...] lt * POCT glucose (09/20/2024 7:20 AM PATIENT SERVICE REP) Glucose, POC 159 70 - 199 mg/dL Comment: For Glucose values <35 mg/dl when Hematocrit is >60 mg/dl,the test may not accurately detect significant hypoglycemia,and testing in the Laboratory should be considered if clinically indicated. Blood 09/20/2024 7:20 AM PATIENT SERVICE REP 09/20/2024 7:20 AM PATIENT SERVICE REP Flo Villagran MD LAB POCT ORDERABLES - DEVICE Final Result Performing Organization Address [facility] Co de Phone Number [facility] [address] Department [place] [address] * POCT glucose (09/20/2024 3:37 AM PATIENT SERVICE REP) [facility] Glucose, POC 195 70 - 199 mg/dL Comment: For Glucose values <35 mg/dl when Hematocrit is >60 mg/dl,the test may not accurately detect significant hypoglycemia,and testing in the Laboratory should be considered if clinically indicated. Blood 09/20/2024 3:37 AM PATIENT SERVICE REP 09/20/2024 3:37 AM PATIENT SERVICE REP Flo Villagran MD LAB POCT ORDERABLES - DEVICE Final Result Performing Organization Address [facility] Co de Phone Number [facility] [address] Department [place] [address] * (ABNORMAL) eGFR (09/20/2024 12:27 AM PATIENT SERVICE REP) [facility] eGFR 43(L) >=60 mL/min/1. 73 m2 Comment: [...] reviewed 2021. Blood 09/20/2024 12:2 7 AM PATIENT SERVICE REP 09/20/2024 12:27 AM PATIENT SERVICE REP us Elida Vigil DO LAB BLOOD ORDERABLES F inal Result [facility] [address] Department [place] [address] * (ABNORMAL) Differential, auto (09/20/2024 12:27 AM PATIENT SERVICE REP) Neutrophil abs 8.9(H) 1.5 - 6.5 K/cumm Imm gran abs 0.5(H) 0.0 - 0.1 K/cumm [facility] Lymphocyte abs 0.9 0.8 - 3.3 K/cumm [facility] Monocyte abs 0.7 0.2 - 0.8 K/cumm [facility] Eosinophil abs 0.2 0.0 - 0.5 K/cumm [facility] Basophil abs 0.0 0.0 - 0.1 K/cumm [facility] Neutrophil pct 79.8 % [facility] Comment: Interpretive Data Percent cell count reference ranges are not reported, since discordance with absolute values may lead to misinterpretation of CBC data. Current Interpretive Data was last revised on 2017. Imm gran pct 4.5 % [facility] Comment: Interpretive Data Percent cell count reference ranges are not reported, since discordance with absolute values may lead to misinterpretation of CBC data. Current Interpretive Data was last revised on 2017. Lymphocyte pct 7.8 % [facility] Comment: Interpretive Data Percent cell count reference ranges are not reported, since discordance with absolute values may lead to misinterpretation of CBC data. Current Interpretive Data was last revised on 2017. Monocyte pct 6.3 % [facility] Comment: Interpretive Data Percent cell count reference ranges are not reported, since discordance with absolute values may lead to misinterpretation of CBC data. Current Interpretive Data was last revised on 2017. Eosinophil pct 1.4 % [facility] Comment: Interpretive Data Percent cell count reference ranges are not reported, since discordance with absolute values may lead to misinterpretation of CBC data. Current Interpretive Data was last revised on 2017. Basophil pct 0.2 % [facility] Comment: Interpretive Data Percent cell count reference ranges are not reported, since discordance with absolute values may lead to misinterpretation of CBC data. Current Interpretive Data was last revised on 2017. Blood 09/20/2024 12:2 7 AM PATIENT SERVICE REP 09/20/2024 12:27 AM PATIENT SERVICE REP us Elida Vigil DO LAB BLOOD ORDERABLES F inal Result [facility] [address] Department [place] [address] * (ABNORMAL) CBC with auto differential (09/20/2024 12:27 AM PATIENT SERVICE REP) WBC 11.2(H) 3.8 - 9.9 K/cumm Hgb 7.6(L) 11.9 - 15.5 g/dL [facility] Hct 24.5(L) 35.6 - 45.5 % [facility] Plt 190 150 - 400 K/cumm [facility] MPV 13.0(H) 9.1 - 12.3 fL [facility] RBC 2.67(L) 3.90 - 5.20 M/cumm [facility] MCV 91.8 81.3 - 96.4 fL [facility] MCH 28.5 27.1 - 33.3 pg [facility] MCHC 31.0(L) 32.3 - 35.7 g/dL [facility] RDW CV 15.2(H) 11.1 - 14.9 % [facility] RDW SD 50.5(H) 35.7 - 48.1 fL [facility] NRBC abs 0.00 0.00 - 0.01 K/cumm [facility] Blood 09/20/2024 12:2 7 AM PATIENT SERVICE REP 09/20/2024 12:27 AM PATIENT SERVICE REP us Elida Schumacher [place] DO LAB BLOOD ORDERABLES F inal Result [facility] [address] Department [place] [address] * (ABNORMAL) Comprehensive metabolic panel (09/20/2024 12:27 AM PATIENT SERVICE REP) Sodium 147(H) 135 - 145 mmol/L Potassium, pl 3.3 3.3 - 4.9 mmol/L [facility] Chloride 117(H) 97 - 110 mmol/L [facility] CO2 18(L) 22 - 32 mmol/L [facility] Anion gap 12 2 - 15 mmol/L [facility] BUN 40(H) 6 - 25 mg/dL [facility] Creatinine 1.48(H) 0.60 - 1.10 mg/dL [facility] Glucose 221(H) 70 - 199 mg/dL [facility] Comment: Interpretive Data Fasting glucose >/= 126 [...] 2022. Calcium 7.5(L) 8.5 - 10.3 mg/dL [facility] Bilirubin, total 0.2 0.1 - 1.2 mg/dL [facility] Protein, pl 5.6(L) 6.5 - 8.5 g/dL [facility] Albumin 2.1(L) 3.5 - 5.0 g/dL [facility] Alk phos 134(H) 40 - 130 Units/L [facility] ALT 14 7 - 45 Units/L [facility] AST 27 10 - 45 Units/L [facility] Blood 09/20/2024 12:2 7 AM PATIENT SERVICE REP 09/20/2024 12:27 AM PATIENT SERVICE REP Elida Vigil DO LAB BLOOD ORDERABLES F inal Result Performing Organization Address [facility] Co de Phone Number [facility] [address] [place] [address] * (ABNORMAL) POCT glucose (09/19/2024 11:00 PM PATIENT SERVICE REP) Glucose, POC 217(H) 70 - 199 mg/dL Comment: For Glucose values <35 mg/dl when Hematocrit is >60 mg/dl,the test may not accurately detect significant hypoglycemia,and testing in the Laboratory should be considered if clinically indicated. Blood 09/19/2024 11:0 0 PM PATIENT SERVICE REP 09/19/2024 11:00 PM PATIENT SERVICE REP Flo Villagran MD LAB POCT ORDERABLES - DEVICE Final Result Performing Organization Address [facility] de Phone Number [facility] [address] [place] [address] * POCT glucose (09/19/2024 7:52 PM PATIENT SERVICE REP) Glucose, POC 196 70 - 199 mg/dL Comment: For Glucose values <35 mg/dl when Hematocrit is >60 mg/dl,the test may not accurately detect significant hypoglycemia,and testing in the Laboratory should be considered if clinically indicated. Blood 09/19/2024 7:52 PM PATIENT SERVICE REP 09/19/2024 7:52 PM PATIENT SERVICE REP Flo Villagran MD LAB POCT ORDERABLES - DEVICE Final Result Performing Organization Address [facility] Co de Phone Number [facility] [address] [facility] [place] [address] * POCT glucose (09/19/2024 4:55 PM PATIENT SERVICE REP) Glucose, POC 179 70 - 199 mg/dL Comment: For Glucose values <35 mg/dl when Hematocrit is >60 mg/dl,the test may not accurately detect significant hypoglycemia,and testing in the Laboratory should be considered if clinically indicated. Blood 09/19/2024 4:55 PM PATIENT SERVICE REP 09/19/2024 4:55 PM PATIENT SERVICE REP Flo Villagran MD LAB POCT ORDERABLES - DEVICE Final Result Performing Organization Address [facility] Co de Phone Number [facility] [address] [facility] [place] [address] * (ABNORMAL) POCT glucose (09/19/2024 12:31 PM PATIENT SERVICE REP) Glucose, POC 260(H) 70 - 199 mg/dL Comment: For Glucose values <35 mg/dl when Hematocrit is >60 mg/dl,the test may not accurately detect significant hypoglycemia,and testing in the Laboratory should be considered if clinically indicated. Blood 09/19/2024 12:3 1 PM PATIENT SERVICE REP 09/19/2024 12:31 PM PATIENT SERVICE REP Flo Villagran MD LAB POCT ORDERABLES - DEVICE Final Result Performing Organization Address [facility] Co de Phone Number [facility] [address] [facility] [place] [address] * Potassium (09/19/2024 10:04 AM PATIENT SERVICE REP) Potassium, pl 3.4 3.3 - 4.9 mmol/L Blood 09/19/2024 10:0 4 AM PATIENT SERVICE REP 09/19/2024 10:12 AM PATIENT SERVICE REP Elida Vigil DO LAB BLOOD ORDERABLES F inal Result [facility] [address] Department [place] [address] * EEG (09/19/2024 8:50 AM PATIENT SERVICE REP) Anatomical Region Laterality Modality EEG Narrative 09/19/2024 1:18 PM PATIENT SERVICE REP REPORT OF ELECTROENCEPHALOGRAM DATE OF STUDY: 09/19/24 Brooke Marshall 1975 REASON FOR STUDY: Confusional state BRIEF HISTORY: Brooke Marshall is a 48 y.o. year old female currently in the ICU, still on ventilator. Admitted with DKA and influenza. Has been witnessed to have diminished mental status. DESCRIPTION: This is a routine 18-channel EEG. The underlying background rhythm consists of a [id number] voltage 5-7 Hz theta rhythm which remains [...] * (ABNORMAL) POCT glucose (09/19/2024 7:53 AM PATIENT SERVICE REP) Glucose, POC 214(H) 70 - 199 mg/dL Comment: For Glucose values <35 mg/dl when Hematocrit is >60 mg/dl,the test may not accurately detect significant hypoglycemia,and testing in the Laboratory should be considered if clinically indicated. Blood 09/19/2024 7:53 AM PATIENT SERVICE REP 09/19/2024 7:53 AM PATIENT SERVICE REP Elida Vigil [employer] LAB POCT ORDERABLES - DEVICE Final Result Performing Organization Address [facility] de Phone Number [facility] [address] [place] [address] * (ABNORMAL) POCT glucose (09/19/2024 3:58 AM PATIENT SERVICE REP) Pathologist [facility] Glucose, POC 234(H) 70 - 199 mg/dL Comment: For Glucose values <35 mg/dl when Hematocrit is >60 mg/dl,the test may not accurately detect significant hypoglycemia,and testing in the Laboratory should be considered if clinically indicated. Blood 09/19/2024 3:58 AM PATIENT SERVICE REP 09/19/2024 3:58 AM PATIENT SERVICE REP Elida Vigil LAB POCT ORDERABLES - DEVICE Final Result Performing Organization Address [facility] de Phone Number [facility] [address] [place] [address] * (ABNORMAL) eGFR (09/19/2024 1:46 AM PATIENT SERVICE REP) [facility] eGFR 36(L) >=60 mL/min/1. 73 m2 Comment: [...] last reviewed 2021. Blood 09/19/2024 1:46 AM PATIENT SERVICE REP 09/19/2024 1:46 AM PATIENT SERVICE REP us Elida Schumacher Musa DO LAB BLOOD ORDERABLES F inal Result [facility] [address] Department [place] [address] * (ABNORMAL) Differential, auto (09/19/2024 1:46 AM PATIENT SERVICE REP) Neutrophil abs 6.7(H) 1.5 - 6.5 K/cumm Imm gran abs 0.5(H) 0.0 - 0.1 K/cumm [facility] Lymphocyte abs 0.7(L) 0.8 - 3.3 K/cumm [facility] Monocyte abs 1.1(H) 0.2 - 0.8 K/cumm [facility] Eosinophil abs 0.1 0.0 - 0.5 K/cumm [facility] Basophil abs 0.0 0.0 - 0.1 K/cumm [facility] Neutrophil pct 72.5 % [facility] Comment: Interpretive Data Percent cell count reference ranges are not reported, since discordance with absolute values may lead to misinterpretation of CBC data. Current Interpretive Data was last revised on 2017. Imm gran pct 5.8 % [facility] Comment: Interpretive Data Percent cell count reference ranges are not reported, since discordance with absolute values may lead to misinterpretation of CBC data. Current Interpretive Data was last revised on 2017. Lymphocyte pct 8.1 % [facility] Comment: Interpretive Data Percent cell count reference ranges are not reported, since discordance with absolute values may lead to misinterpretation of CBC data. Current Interpretive Data was last revised on 2017. Monocyte pct 12.3 % [facility] Comment: Interpretive Data Percent cell count reference ranges are not reported, since discordance with absolute values may lead to misinterpretation of CBC data. Current Interpretive Data was last revised on 2017. Eosinophil pct 1.2 % [facility] Comment: Interpretive Data Percent cell count reference ranges are not reported, since discordance with absolute values may lead to misinterpretation of CBC data. Current Interpretive Data was last revised on 2017. Basophil pct 0.1 % [facility] Comment: Interpretive Data Percent cell count reference ranges are not reported, since discordance with absolute values may lead to misinterpretation of CBC data. Current Interpretive Data was last revised on 2017. Blood 09/19/2024 1:46 AM PATIENT SERVICE REP 09/19/2024 1:46 AM PATIENT SERVICE REP us Elida Vigil DO LAB BLOOD ORDERABLES F inal Result [facility] [address] Department [place] [address] * (ABNORMAL) CBC with auto differential (09/19/2024 1:46 AM PATIENT SERVICE REP) WBC 9.2 3.8 - 9.9 K/cumm Hgb 7.5(L) 11.9 - 15.5 g/dL [facility] Hct 23.7(L) 35.6 - 45.5 % [facility] Plt 150 150 - 400 K/cumm [facility] MPV 13.4(H) 9.1 - 12.3 fL [facility] RBC 2.61(L) 3.90 - 5.20 M/cumm [facility] MCV 90.8 81.3 - 96.4 fL [facility] MCH 28.7 27.1 - 33.3 pg [facility] MCHC 31.6(L) 32.3 - 35.7 g/dL [facility] RDW CV 14.9 11.1 - 14.9 % [facility] RDW SD 49.1(H) 35.7 - 48.1 fL [facility] NRBC abs 0.00 0.00 - 0.01 K/cumm [facility] Blood 09/19/2024 1:46 AM PATIENT SERVICE REP 09/19/2024 1:46 AM PATIENT SERVICE REP us Elida Winsome Barks DO LAB BLOOD ORDERABLES E dited Result - Final Performing Organization Address [facility] de Phone Number [facility] [address] [facility] [place] [address] * Manual Differential (09/19/2024 1:46 AM PATIENT SERVICE REP) Differential Auto RBC morphology Normal [facility] Morphology scrn See Comment [facility] Comment:PLT: Platelet morpho logy normal Blood 09/19/2024 1:46 AM PATIENT SERVICE REP 09/19/2024 1:46 AM PATIENT SERVICE REP us Elida Gusmanrice Chuys DO LAB BLOOD ORDERABLES F inal Result Performing Organization Address [facility] Phone Number [facility] [address] [facility] [place] [address] * Phosphorus (09/19/2024 1:46 AM PATIENT SERVICE REP) Phosphorus, pl 3.0 2.3 - 4.5 mg/dL Blood 09/19/2024 1:46 AM PATIENT SERVICE REP 09/19/2024 1:46 AM PATIENT SERVICE REP Elida Gusmanrice Chuys DO LAB BLOOD ORDERABLES F inal Result Performing Organization Address [facility] de Phone Number [facility] [address] [place] [address] * Magnesium (09/19/2024 1:46 AM PATIENT SERVICE REP) Magnesium 2.3 1.4 - 2.5 mg/dL Blood 09/19/2024 1:46 AM PATIENT SERVICE REP 09/19/2024 1:46 AM PATIENT SERVICE REP us Elida Winsome Barks DO LAB BLOOD ORDERABLES F inal Result Performing Organization Address [facility]/State/ZIP Co de Phone Number [facility] [address] Department [place] [address] * (ABNORMAL) Comprehensive metabolic panel (09/19/2024 1:46 AM PATIENT SERVICE REP) Sodium 145 135 - 145 mmol/L Potassium, pl 2.6(C) 3.3 - 4.9 mmol/L [facility] Comment:Critical result call ed to and read back by Amber Gaines (RN) on 09/19/24 @ 0210 to [id number] Chloride 113(H) 97 - 110 mmol/L [facility] CO2 20(L) 22 - 32 mmol/L [facility] Anion gap 12 2 - 15 mmol/L [facility] BUN 41(H) 6 - 25 mg/dL [facility] Creatinine 1.73(H) 0.60 - 1.10 mg/dL [facility] Glucose 249(H) 70 - 199 mg/dL [facility] Comment: Interpretive Data Fasting glucose >/= 126 [...] 2022. Calcium 7.5(L) 8.5 - 10.3 mg/dL [facility] Bilirubin, total 0.3 0.1 - 1.2 mg/dL [facility] Protein, pl 5.6(L) 6.5 - 8.5 g/dL [facility] Albumin 2.0(L) 3.5 - 5.0 g/dL [facility] [facility] Alk phos 127 40 - 130 Units/L [facility] ALT 12 7 - 45 Units/L [facility] AST 24 10 - 45 Units/L [facility] Blood 09/19/2024 1:46 AM PATIENT SERVICE REP 09/19/2024 1:46 AM PATIENT SERVICE REP Elida Vigil LAB BLOOD ORDERABLES F inal Result Performing Organization Address [facility] de Phone Number [facility] [address] [facility] [place] [address] * Ammonia (09/19/2024 1:07 AM PATIENT SERVICE REP) Ammonia 40 <=50 mcmol/L Blood 09/19/2024 1:07 AM PATIENT SERVICE REP 09/19/2024 1:12 AM PATIENT SERVICE REP Elida Vigil LAB BLOOD ORDERABLES F inal Result Performing Organization Address [facility] de Phone Number [facility] [address] [place] [address] * (ABNORMAL) POCT glucose (09/18/2024 11:58 PM PATIENT SERVICE REP) Glucose, POC 231(H) 70 - 199 mg/dL Comment: For Glucose values <35 mg/dl when Hematocrit is >60 mg/dl,the test may not accurately detect significant hypoglycemia,and testing in the Laboratory should be considered if clinically indicated. Blood 09/18/2024 11:5 8 PM PATIENT SERVICE REP 09/18/2024 11:58 PM PATIENT SERVICE REP Elida Vigil LAB POCT ORDERABLES - DEVICE Final Result Performing Organization Address [facility] de Phone Number [facility] [address] [facility] [place] [address] * (ABNORMAL) POCT glucose (09/18/2024 9:10 PM PATIENT SERVICE REP) Glucose, POC 261(H) 70 - 199 mg/dL Comment: For Glucose values <35 mg/dl when Hematocrit is >60 mg/dl,the test may not accurately detect significant hypoglycemia,and testing in the Laboratory should be considered if clinically indicated. Blood 09/18/2024 9:10 PM PATIENT SERVICE REP 09/18/2024 9:10 PM PATIENT SERVICE REP Elida Winsome Vigil LAB POCT ORDERABLES - DEVICE Final Result Performing Organization Address [facility] Co de Phone Number [facility] [address] [place] [address] * (ABNORMAL) POCT glucose (09/18/2024 4:18 PM PATIENT SERVICE REP) Glucose, POC 229(H) 70 - 199 mg/dL Comment: For Glucose values <35 mg/dl when Hematocrit is >60 mg/dl,the test may not accurately detect significant hypoglycemia,and testing in the Laboratory should be considered if clinically indicated. Blood 09/18/2024 4:18 PM PATIENT SERVICE REP 09/18/2024 4:18 PM PATIENT SERVICE REP Elida Winsome Vigil [facility] POCT ORDERABLES - DEVICE Final Result Performing Organization Address [facility] de Phone Number [facility] [address] [facility] [place] [address] * (ABNORMAL) POCT glucose (09/18/2024 12:07 PM PATIENT SERVICE REP) Glucose, POC 260(H) 70 - 199 mg/dL Comment: For Glucose values <35 mg/dl when Hematocrit is >60 mg/dl,the test may not accurately detect significant hypoglycemia,and testing in the Laboratory should be considered if clinically indicated. Blood 09/18/2024 12:0 7 PM PATIENT SERVICE REP 09/18/2024 12:07 PM PATIENT SERVICE REP Elida Winsome Vigil LAB POCT ORDERABLES - DEVICE Final Result Performing Organization Address [facility] Co de Phone Number [facility] [address] [place] [address] * (ABNORMAL) DIC Platelet (09/18/2024 8:13 AM PATIENT SERVICE REP) Plt 147(L) 150 - 400 K/cumm Blood 09/18/2024 8:13 AM PATIENT SERVICE REP 09/18/2024 8:25 AM PATIENT SERVICE REP us Elida Vigil DO LAB BLOOD ORDERABLES E dited Result - Final [facility] [address] Department [place] [address] * (ABNORMAL) Differential, auto (09/18/2024 8:13 AM PATIENT SERVICE REP) Pathologist [facility] Neutrophil abs 7.0(H) 1.5 - 6.5 K/cumm Imm gran abs 0.6(H) 0.0 - 0.1 K/cumm [facility] Lymphocyte abs 0.7(L) 0.8 - 3.3 K/cumm [facility] Monocyte abs 1.4(H) 0.2 - 0.8 K/cumm [facility] Eosinophil abs 0.1 0.0 - 0.5 K/cumm [facility] Basophil abs 0.1 0.0 - 0.1 K/cumm [facility] Neutrophil pct 71.8 % [facility] Comment: Interpretive Data Percent cell count reference ranges are not reported, since discordance with absolute values may lead to misinterpretation of CBC data. Current Interpretive Data was last revised on 2017. Imm gran pct 6.0 % [facility] Comment: Interpretive Data Percent cell count reference ranges are not reported, since discordance with absolute values may lead to misinterpretation of CBC data. Current Interpretive Data was last revised on 2017. Lymphocyte pct 6.6 % [facility] Comment: Interpretive Data Percent cell count reference ranges are not reported, since discordance with absolute values may lead to misinterpretation of CBC data. Current Interpretive Data was last revised on 2017. Monocyte pct 14.1 % [facility] Comment: Interpretive Data Percent cell count reference ranges are not reported, since discordance with absolute values may lead to misinterpretation of CBC data. Current Interpretive Data was last revised on 2017. Eosinophil pct 0.9 % [facility] Comment: Interpretive Data Percent cell count reference ranges are not reported, since discordance with absolute values may lead to misinterpretation of CBC data. Current Interpretive Data was last revised on 2017. Basophil pct 0.6 % [facility] Comment: Interpretive Data Percent cell count reference ranges are not reported, since discordance with absolute values may lead to misinterpretation of CBC data. Current Interpretive Data was last revised on 2017. Blood 09/18/2024 8:13 AM PATIENT SERVICE REP 09/18/2024 8:13 AM PATIENT SERVICE REP Elida Vigil LAB BLOOD ORDERABLES F inal Result Performing Organization Address [facility] Co de Phone Number [facility] [address] [place] [address] * DIC Schistocytes (09/18/2024 8:13 AM PATIENT SERVICE REP) Schistocytes None Seen None Seen Blood 09/18/2024 8:13 AM PATIENT SERVICE REP 09/18/2024 8:25 AM PATIENT SERVICE REP [facility] BLOOD ORDERABLES F inal Result Performing Organization Address [facility] Co de Phone Number [facility] [address] [place] [address] * (ABNORMAL) CBC with auto differential (09/18/2024 8:13 AM PATIENT SERVICE REP) WBC 9.8 3.8 - 9.9 K/cumm Hgb 8.9(L) 11.9 - 15.5 g/dL [facility] Hct 28.7(L) 35.6 - 45.5 % [facility] Plt 147(L) 150 - 400 K/cumm [facility] MPV 13.2(H) 9.1 - 12.3 fL [facility] RBC 3.06(L) 3.90 - 5.20 M/cumm [facility] MCV 93.8 81.3 - 96.4 fL [facility] MCH 29.1 27.1 - 33.3 pg [facility] MCHC 31.0(L) 32.3 - 35.7 g/dL [facility] RDW CV 14.7 11.1 - 14.9 % [facility] RDW SD 50.8(H) 35.7 - 48.1 fL [facility] NRBC abs 0.03(H) 0.00 - 0.01 K/cumm [facility] Blood 09/18/2024 8:13 AM PATIENT SERVICE REP 09/18/2024 8:20 AM PATIENT SERVICE REP Elida Vigil DO LAB BLOOD ORDERABLES E dited Result - Final Performing Organization Address [facility]/ZIP Co de Phone Number [facility] [address] [place] [address] * (ABNORMAL) POCT glucose (09/18/2024 7:57 AM PATIENT SERVICE REP) Glucose, POC 271(H) 70 - 199 mg/dL Comment: For Glucose values <35 mg/dl when Hematocrit is >60 mg/dl,the test may not accurately detect significant hypoglycemia,and testing in the Laboratory should be considered if clinically indicated. Blood 09/18/2024 7:57 AM PATIENT SERVICE REP 09/18/2024 7:57 AM PATIENT SERVICE REP Elida Vigil DO LAB POCT ORDERABLES - DEVICE Final Result Performing Organization Address [facility]/ZIP Co de Phone Number [facility] [address] [place] [address] * (ABNORMAL) POCT glucose (09/18/2024 7:56 AM PATIENT SERVICE REP) Glucose, POC 240(H) 70 - 199 mg/dL Comment: For Glucose values <35 mg/dl when Hematocrit is >60 mg/dl,the test may not accurately detect significant hypoglycemia,and testing in the Laboratory should be considered if clinically indicated. Blood 09/18/2024 7:56 AM PATIENT SERVICE REP 09/18/2024 7:56 AM PATIENT SERVICE REP Elida Vigil DO LAB POCT ORDERABLES - DEVICE Final Result Performing Organization Address [facility] Co de Phone Number [facility] [address] Department [place], [place] [id number] * (ABNORMAL) eGFR (09/18/2024 7:26 AM PATIENT SERVICE REP) eGFR 40(L) >=60 mL/min/1. 73 m2 Comment: [...] last reviewed 2021. Blood 09/18/2024 7:26 AM PATIENT SERVICE REP 09/18/2024 7:47 AM PATIENT SERVICE REP Elida Vigil DO LAB BLOOD ORDERABLES F inal Result Performing Organization Address [facility]/ZIP Co de Phone Number [facility] [address] Department [place], [place] [id number] * Phosphorus (09/18/2024 7:26 AM PATIENT SERVICE REP) Phosphorus, pl 2.9 2.3 - 4.5 mg/dL Comment:Reviewed - dialysis patient Blood 09/18/2024 7:26 AM PATIENT SERVICE REP 09/18/2024 7:47 AM PATIENT SERVICE REP Elida Vigil LAB BLOOD ORDERABLES F inal Result Performing Organization Address [facility] de Phone Number [facility] [address] [facility] [place], [place] [id number] * Magnesium (09/18/2024 7:26 AM PATIENT SERVICE REP) [facility] Magnesium 2.3 1.4 - 2.5 mg/dL Blood 09/18/2024 7:26 AM PATIENT SERVICE REP 09/18/2024 7:47 AM PATIENT SERVICE REP Elida Verahenok [facility] BLOOD ORDERABLES F inal Result Performing Organization Address [facility] Phone Number [facility] [address] [place] [address] * Vitamin B12 (09/18/2024 7:26 AM PATIENT SERVICE REP) [facility] Vitamin B12 878 230 - 1,250 pg/mL Blood 09/18/2024 7:26 AM PATIENT SERVICE REP 09/18/2024 7:47 AM PATIENT SERVICE REP Elida Vigil LAB BLOOD ORDERABLES F inal Result Performing Organization Address [facility] de Phone Number [facility] [address] [facility] [place] [address] * (ABNORMAL) Comprehensive metabolic panel (09/18/2024 7:26 AM PATIENT SERVICE REP) [facility] Sodium 143 135 - 145 mmol/L Potassium, pl 3.4 3.3 - 4.9 mmol/L [facility] Comment:Hemolyzed; potassium value may be falsely elevated by as much as 0.3 - 0.5 mmol/L. Suggest redraw and reanalysis Chloride 111(H) 97 - 110 mmol/L [facility] CO2 19(L) 22 - 32 mmol/L [facility] Anion gap 13 2 - 15 mmol/L [facility] BUN 39(H) 6 - 25 mg/dL [facility] Creatinine 1.57(H) 0.60 - 1.10 mg/dL [facility] Glucose 227(H) 70 - 199 mg/dL [facility] Comment: Interpretive Data Fasting glucose >/= 126 [...] 2022. Calcium 7.8(L) 8.5 - 10.3 mg/dL [facility] Bilirubin, total 0.4 0.1 - 1.2 mg/dL [facility] Protein, pl 5.9(L) 6.5 - 8.5 g/dL [facility] Albumin 2.2(L) 3.5 - 5.0 g/dL [facility] Alk phos 141(H) 40 - 130 Units/L [facility] ALT 18 7 - 45 Units/L [facility] AST 31 10 - 45 Units/L [facility] Comment:Slightly Hemolyzed S pecimen Blood 09/18/2024 7:26 AM PATIENT SERVICE REP 09/18/2024 7:47 AM PATIENT SERVICE REP us Elida Vigil DO LAB BLOOD ORDERABLES F inal Result [facility] [address] Department [place] [address] * (ABNORMAL) POCT glucose (09/18/2024 4:28 AM PATIENT SERVICE REP) [facility] Glucose, POC 243(H) 70 - 199 mg/dL Comment: For Glucose values <35 mg/dl when Hematocrit is >60 mg/dl,the test may not accurately detect significant hypoglycemia,and testing in the Laboratory should be considered if clinically indicated. Blood 09/18/2024 4:28 AM PATIENT SERVICE REP 09/18/2024 4:28 AM PATIENT SERVICE REP us Elida Vigil DO LAB POCT ORDERABLES - DEVICE Final Result [facility] [address] Department [place] [address] * (ABNORMAL) DIC Coagulation (09/18/2024 4:20 AM PATIENT SERVICE REP) PT DIC 10.5 10.3 - 13.7 sec INR DIC 0.97 0.90 - 1.20 [facility] PTT DIC 18(L) 28 - 38 sec [facility] Comment: Specimen integrity okay Interpretive Data Heparin therapeutic range: 66.0 - 100.0 seconds. Range based on correlation with therapeutic heparin activity range of 0.3 - 0.7 Units/mL. Current interpretive data was last revised on 2023. D-Dimer 13,588(H) <=499 ng/mL FEU [facility] Comment: Specimen not clotted and filled properly [...] 2019. Fibrinogen 775(H) 170 - 400 mg/dL [facility] Blood 09/18/2024 4:20 AM PATIENT SERVICE REP 09/18/2024 4:21 AM PATIENT SERVICE REP Elida Vigil LAB BLOOD ORDERABLES F inal Result Performing Organization Address [facility] Co de Phone Number [facility] [address] [place] [address] * (ABNORMAL) POCT glucose (09/17/2024 11:57 PM PATIENT SERVICE REP) Glucose, POC 263(H) 70 - 199 mg/dL Comment: For Glucose values <35 mg/dl when Hematocrit is >60 mg/dl,the test may not accurately detect significant hypoglycemia,and testing in the Laboratory should be considered if clinically indicated. Blood 09/17/2024 11:5 7 PM PATIENT SERVICE REP 09/17/2024 11:57 PM PATIENT SERVICE REP Elida Vigil [facility] POCT ORDERABLES - DEVICE Final Result Performing Organization Address [facility] de Phone Number [facility] [address] [facility] [place] [address] * (ABNORMAL) POCT glucose (09/17/2024 8:02 PM PATIENT SERVICE REP) [facility] Glucose, POC 291(H) 70 - 199 mg/dL Comment: For Glucose values <35 mg/dl when Hematocrit is >60 mg/dl,the test may not accurately detect significant hypoglycemia,and testing in the Laboratory should be considered if clinically indicated. Blood 09/17/2024 8:02 PM PATIENT SERVICE REP 09/17/2024 8:02 PM PATIENT SERVICE REP Elidamartha Vigil LAB POCT ORDERABLES - DEVICE Final Result Performing Organization Address [facility] de Phone Number [facility] [address] [facility] [place] [address] * (ABNORMAL) POCT glucose (09/17/2024 4:21 PM PATIENT SERVICE REP) Glucose, POC 283(H) 70 - 199 mg/dL Comment: For Glucose values <35 mg/dl when Hematocrit is >60 mg/dl,the test may not accurately detect significant hypoglycemia,and testing in the Laboratory should be considered if clinically indicated. Blood 09/17/2024 4:21 PM PATIENT SERVICE REP 09/17/2024 4:21 PM PATIENT SERVICE REP Elida Vigil DO LAB POCT ORDERABLES - DEVICE Final Result Performing Organization Address [facility] Co de Phone Number [facility] [address] [place] [address] * (ABNORMAL) eGFR (09/17/2024 2:52 PM PATIENT SERVICE REP) [facility] eGFR 34(L) >=60 mL/min/1. 73 m2 Comment: [...] last reviewed 2021. Blood 09/17/2024 2:52 PM PATIENT SERVICE REP 09/17/2024 2:57 PM PATIENT SERVICE REP Elida Vigil DO LAB BLOOD ORDERABLES F inal Result Performing Organization Address [facility]/ZIP Co de Phone Number [facility] [address] [employer] [place] [address] * (ABNORMAL) Renal function panel (09/17/2024 2:52 PM PATIENT SERVICE REP) Pathologist [facility] Sodium 143 135 - 145 mmol/L Potassium, pl 3.6 3.3 - 4.9 mmol/L [facility] Chloride 110 97 - 110 mmol/L [facility] CO2 21(L) 22 - 32 mmol/L [facility] Anion gap 12 2 - 15 mmol/L [facility] BUN 41(H) 6 - 25 mg/dL [facility] Creatinine 1.82(H) 0.60 - 1.10 mg/dL [facility] Glucose 290(H) 70 - 199 mg/dL [facility] Comment: Interpretive Data Fasting glucose >/= 126 [...] 2022. Calcium 7.9(L) 8.5 - 10.3 mg/dL [facility] Phosphorus, pl 5.0(H) 2.3 - 4.5 mg/dL [facility] Comment:Reviewed Albumin 2.4(L) 3.5 - 5.0 g/dL [facility] Blood 09/17/2024 2:52 PM PATIENT SERVICE REP 09/17/2024 2:57 PM PATIENT SERVICE REP us Elida Vigil DO LAB BLOOD ORDERABLES F inal Result [facility] [address] Department [place] [address] * (ABNORMAL) POCT glucose (09/17/2024 12:23 PM PATIENT SERVICE REP) [facility] Glucose, POC 278(H) 70 - 199 mg/dL Comment: For Glucose values <35 mg/dl when Hematocrit is >60 mg/dl,the test may not accurately detect significant hypoglycemia,and testing in the Laboratory should be considered if clinically indicated. Blood 09/17/2024 12:2 3 PM PATIENT SERVICE REP 09/17/2024 12:23 PM PATIENT SERVICE REP Elida Vigil DO LAB POCT ORDERABLES - DEVICE Final Result Performing Organization Address [facility] de Phone Number [facility] [address] [place] [address] * (ABNORMAL) POCT glucose (09/17/2024 7:09 AM PATIENT SERVICE REP) Glucose, POC 294(H) 70 - 199 mg/dL Comment: For Glucose values <35 mg/dl when Hematocrit is >60 mg/dl,the test may not accurately detect significant hypoglycemia,and testing in the Laboratory should be considered if clinically indicated. Blood 09/17/2024 7:09 AM PATIENT SERVICE REP 09/17/2024 7:09 AM PATIENT SERVICE REP Elida Vigil DO LAB POCT ORDERABLES - DEVICE Final Result Performing Organization Address [facility] de Phone Number [facility] [address] [place] [address] * (ABNORMAL) POCT glucose (09/17/2024 4:42 AM PATIENT SERVICE REP) Glucose, POC 300(H) 70 - 199 mg/dL Comment: For Glucose values <35 mg/dl when Hematocrit is >60 mg/dl,the test may not accurately detect significant hypoglycemia,and testing in the Laboratory should be considered if clinically indicated. Blood 09/17/2024 4:42 AM PATIENT SERVICE REP 09/17/2024 4:42 AM PATIENT SERVICE REP Elida Vigil DO LAB POCT ORDERABLES - DEVICE Final Result [facility] [address] Department [place] [address] * (ABNORMAL) eGFR (09/17/2024 4:10 AM PATIENT SERVICE REP) eGFR 36(L) >=60 mL/min/1. 73 m2 Comment: [...] last reviewed 2021. Blood 09/17/2024 4:10 AM PATIENT SERVICE REP 09/17/2024 4:10 AM PATIENT SERVICE REP us Elida Vigil DO LAB BLOOD ORDERABLES F inal Result Performing Organization Address [facility] Co de Phone Number [facility] [address] Department [place] [address] * Thyroid Function Arvilla (09/17/2024 4:10 AM PATIENT SERVICE REP) TSH 1.79 0.30 - 4.20 mcIUnit/mL Blood 09/17/2024 4:10 AM PATIENT SERVICE REP 09/17/2024 4:10 AM PATIENT SERVICE REP Glokaliserice Paktorhneok DO LAB BLOOD ORDERABLES F inal Result Performing Organization Address [facility] Co de Phone Number [facility] [address] Department [place] [address] * (ABNORMAL) CBC with auto differential (09/17/2024 4:10 AM PATIENT SERVICE REP) [facility] WBC 7.1 3.8 - 9.9 K/cumm Hgb 8.7(L) 11.9 - 15.5 g/dL [facility] Hct 27.4(L) 35.6 - 45.5 % [facility] Plt 93(L) 150 - 400 K/cumm [facility] MPV 12.8(H) 9.1 - 12.3 fL [facility] RBC 3.03(L) 3.90 - 5.20 M/cumm [facility] MCV 90.4 81.3 - 96.4 fL [facility] MCH 28.7 27.1 - 33.3 pg [facility] MCHC 31.8(L) 32.3 - 35.7 g/dL [facility] RDW CV 14.6 11.1 - 14.9 % [facility] RDW SD 48.9(H) 35.7 - 48.1 fL [facility] NRBC abs 0.00 0.00 - 0.01 K/cumm [facility] Blood 09/17/2024 4:10 AM PATIENT SERVICE REP 09/17/2024 4:10 AM PATIENT SERVICE REP us Elida Vigil DO LAB BLOOD ORDERABLES F inal Result [facility] [address] Department [place] [address] * (ABNORMAL) Manual Differential (09/17/2024 4:10 AM PATIENT SERVICE REP) [facility] Differential Manual Cells Counted 120 [facility] Neutrophil abs 5.9 1.5 - 6.5 K/cumm [facility] Imm gran abs 0.2(H) 0.0 - 0.1 K/cumm [facility] Lymphocyte abs 0.6(L) 0.8 - 3.3 K/cumm [facility] Monocyte abs 0.4 0.2 - 0.8 K/cumm [facility] Eosinophil abs 0.1 0.0 - 0.5 K/cumm [facility] Basophil abs 0.1 0.0 - 0.1 K/cumm [facility] Neutrophil pct 82.6 % [facility] Comment: Interpretive Data Percent cell count reference ranges are not reported, since discordance with absolute values may lead to misinterpretation of CBC data. Current Interpretive Data was last revised on 2017. Lymphocyte pct 8.3 % [facility] Comment: Interpretive Data Percent cell count reference ranges are not reported, since discordance with absolute values may lead to misinterpretation of CBC data. Current Interpretive Data was last revised on 2017. Monocyte pct 5.0 % [facility] Comment: Interpretive Data Percent cell count reference ranges are not reported, since discordance with absolute values may lead to misinterpretation of CBC data. Current Interpretive Data was last revised on 2017. Eosinophil pct 0.8 % [facility] Comment: Interpretive Data Percent cell count reference ranges are not reported, since discordance with absolute values may lead to misinterpretation of CBC data. Current Interpretive Data was last revised on 2017. Basophil pct 0.8 % [facility] Comment: Interpretive Data Percent cell count reference ranges are not reported, since discordance with absolute values may lead to misinterpretation of CBC data. Current Interpretive Data was last revised on 2017. Myelocyte pct 0.8(H) 0.0 - 0.0 % [facility] Promyelocyte pct 1.7(H) 0.0 - 0.0 % [facility] RBC morphology Present(A) [facility] Anisocytosis Slight(A) [facility] Morphology scrn See Comment [facility] Comment:PLT: Platelet morpho logy normal Blood 09/17/2024 4:10 AM PATIENT SERVICE REP 09/17/2024 4:10 AM PATIENT SERVICE REP us Elida Vigil DO LAB BLOOD ORDERABLES F inal Result [facility] [address] [place] [address] * (ABNORMAL) Phosphorus (09/17/2024 4:10 AM PATIENT SERVICE REP) Pathologist [facility] Phosphorus, pl 2.2(L) 2.3 - 4.5 mg/dL Blood 09/17/2024 4:10 AM PATIENT SERVICE REP 09/17/2024 4:10 AM PATIENT SERVICE REP Glokaliserice TrabajoPanel DO LAB BLOOD ORDERABLES F inal Result [facility] [address] [place] [address] * Magnesium (09/17/2024 4:10 AM PATIENT SERVICE REP) Pathologist [facility] Magnesium 2.3 1.4 - 2.5 mg/dL Blood 09/17/2024 4:10 AM PATIENT SERVICE REP 09/17/2024 4:10 AM PATIENT SERVICE REP Elidamartha Krafte Paktorhenok DO LAB BLOOD ORDERABLES F inal Result Performing Organization Address [facility] Co de Phone Number [facility] [address] [facility] [place] [address] * (ABNORMAL) Haptoglobin (09/17/2024 4:10 AM PATIENT SERVICE REP) Pathologist [facility] Haptoglobin 408(H) 30 - 200 mg/dL Blood 09/17/2024 4:10 AM PATIENT SERVICE REP 09/17/2024 4:10 AM PATIENT SERVICE REP Elida Winsome [employer] LAB BLOOD ORDERABLES F inal Result Performing Organization Address City/[facility]/ZIP Co de Phone Number [facility] [address] [facility] [place] [address] * (ABNORMAL) Comprehensive metabolic panel (09/17/2024 4:10 AM PATIENT SERVICE REP) Pathologist [facility] Sodium 143 135 - 145 mmol/L Potassium, pl 2.8(L) 3.3 - 4.9 mmol/L [facility] Chloride 109 97 - 110 mmol/L [facility] CO2 21(L) 22 - 32 mmol/L [facility] Anion gap 13 2 - 15 mmol/L [facility] BUN 43(H) 6 - 25 mg/dL [facility] Creatinine 1.71(H) 0.60 - 1.10 mg/dL [facility] Glucose 288(H) 70 - 199 mg/dL [facility] Comment: Interpretive Data Fasting glucose >/= 126 [...] 2022. Calcium 7.9(L) 8.5 - 10.3 mg/dL [facility] Bilirubin, total 0.3 0.1 - 1.2 mg/dL [facility] Protein, pl 5.5(L) 6.5 - 8.5 g/dL [facility] Albumin 2.2(L) 3.5 - 5.0 g/dL [facility] Alk phos 115 40 - 130 Units/L [facility] ALT 18 7 - 45 Units/L [facility] AST 23 10 - 45 Units/L [facility] Blood 09/17/2024 4:10 AM PATIENT SERVICE REP 09/17/2024 4:10 AM PATIENT SERVICE REP us Elida Vigil DO LAB BLOOD ORDERABLES F inal Result [facility] [address] Department [place] [address] * XR Chest 1 View (09/17/2024 2:59 AM PATIENT SERVICE REP) Anatomical Region Laterality Modality Body, Chest N/A Computed Radiogr aphy 09/17/2024 7:00 AM PATIENT SERVICE REP Impressions 09/17/2024 7:00 AM PATIENT SERVICE REP Comparison chest radiograph 09/16/2024. Endotracheal tube terminates 4 cm above the jessenia. Gastric tube courses along the esophagus and terminates below the diaphragm outside the [id number]. Small lung volumes. Similar-appearing patchy airspace opacity in left lower lung which may represent a pneumonia. Right lung is clear. No pleural effusion or pneumothorax. Heart size and mediastinal contours are stable. Electronically signed by: Teja Angeles MD, PHD Narrative 09/17/2024 7:00 AM PATIENT SERVICE REP EXAMINATION: XR CHEST 1 VIEW Procedure Note Teja Angeles MD PhD - 09/17/2024 EXAMINATION: XR CHEST 1 VIEW IMPRESSION: Comparison chest radiograph 09/16/2024. Endotracheal tube terminates 4 cm above the jessenia. Gastric tube courses along the esophagus and terminates below the diaphragm outside the [id number]. Small lung volumes. Similar-appearing patchy airspace opacity in left lower lung which may represent a pneumonia. Right lung is clear. No pleural effusion or pneumothorax. Heart size and mediastinal contours are stable. Electronically signed by: Teja Angeles MD, PHD Elida Vigil DO IMG XR PROCEDURES Salma l Result * (ABNORMAL) POCT glucose (09/16/2024 11:48 PM PATIENT SERVICE REP) [facility] Glucose, POC 288(H) 70 - 199 mg/dL Comment: For Glucose values <35 mg/dl when Hematocrit is >60 mg/dl,the test may not accurately detect significant hypoglycemia,and testing in the Laboratory should be considered if clinically indicated. Blood 09/16/2024 11:4 8 PM PATIENT SERVICE REP 09/16/2024 11:48 PM PATIENT SERVICE REP Elida Vigil DO LAB POCT ORDERABLES - DEVICE Final Result [facility] [address] [address] * (ABNORMAL) POCT glucose (09/16/2024 8:12 PM PATIENT SERVICE REP) Glucose, POC 265(H) 70 - 199 mg/dL Comment: For Glucose values <35 mg/dl when Hematocrit is >60 mg/dl,the test may not accurately detect significant hypoglycemia,and testing in the Laboratory should be considered if clinically indicated. Blood 09/16/2024 8:12 PM PATIENT SERVICE REP 09/16/2024 8:12 PM PATIENT SERVICE REP Elida Vigil DO LAB POCT ORDERABLES - DEVICE Final Result Performing Organization Address [facility] de Phone Number [facility] [address] [place] [address] * (ABNORMAL) POCT glucose (09/16/2024 4:04 PM PATIENT SERVICE REP) Glucose, POC 310(H) 70 - 199 mg/dL Comment: For Glucose values <35 mg/dl when Hematocrit is >60 mg/dl,the test may not accurately detect significant hypoglycemia,and testing in the Laboratory should be considered if clinically indicated. Blood 09/16/2024 4:04 PM PATIENT SERVICE REP 09/16/2024 4:04 PM PATIENT SERVICE REP Elida Vigil DO LAB POCT ORDERABLES - DEVICE Final Result Performing Organization Address [facility] Co de Phone Number [facility] [address] [place] [address] * (ABNORMAL) POCT glucose (09/16/2024 12:27 PM PATIENT SERVICE REP) Glucose, POC 271(H) 70 - 199 mg/dL Comment: For Glucose values <35 mg/dl when Hematocrit is >60 mg/dl,the test may not accurately detect significant hypoglycemia,and testing in the Laboratory should be considered if clinically indicated. Blood 09/16/2024 12:2 7 PM PATIENT SERVICE REP 09/16/2024 12:27 PM PATIENT SERVICE REP us Elida Vigil DO LAB POCT ORDERABLES - DEVICE Final Result [facility] [address] Department [place] [address] * US Vein Duplex Lower Extremity Bilateral Complete (09/16/2024 11:24 AM PATIENT SERVICE REP) Anatomical Region Laterality Modality Vascular Bilateral Ultrasound 09/16/2024 3:48 PM PATIENT SERVICE REP Impressions 09/16/2024 3:48 PM PATIENT SERVICE REP 1. This study does not demonstrate evidence of deep vein thrombosis in the right lower extremity. None 2. This study does not demonstrate evidence of deep vein thrombosis in the left lower extremity. None 3. Note: Small isolated thrombi may be difficult to visualize, especially in the calf veins. Electronically signed by: Kwaku Tolentino M.D. Narrative 09/16/2024 3:48 PM PATIENT SERVICE REP Lower Extremity Vein Duplex Bilateral DATE: 09/16/2024 [...] by: Kwaku Tolentino M.D. 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 Interpretive [...] organism identification may be performed using the [employer] Blood Culture Identification panel. This assay detects microbial DNA in a blood culture broth. This assay has been cleared by the [place] Food and Drug Administration and its performance characteristics have been verified by the [facility]. Interpretive data was last revised on September 11, 2022. us Elida Vigil DO LAB MICROBIOLOGY - GEN ERAL ORDERABLES Final Result [facility] [address] [place] [address] * Blood culture Blood (09/16/2024 8:45 AM PATIENT SERVICE REP) Report Final Report: No growth Blood 09/16/2024 8:45 AM PATIENT SERVICE REP 09/16/2024 8:56 AM PATIENT SERVICE REP Narrative [facility] - 09/21/2024 1:01 PM PATIENT SERVICE REP Interpretive Data 1. Blood cultures are incubated and monitored continuously for 5 days (120 hours). The first negative report is issued within 24 hours of receipt in the laboratory. 2. All positive cultures are resulted and called to physicians/care providers as soon as they are detected. 3. A rapid molecular test for organism identification may be performed using the [employer] Blood Culture Identification panel. This assay detects microbial DNA in a blood culture broth. This assay has been cleared by the [place] Food and Drug Administration and its performance characteristics have been verified by the [facility]. Interpretive data was last revised on September 11, 2022. Elida Vigil DO LAB MICROBIOLOGY - GEN ERAL ORDERABLES Final Result [facility] [address] [place] [address] * (ABNORMAL) POCT glucose (09/16/2024 7:33 AM PATIENT SERVICE REP) Pathologist [facility] Glucose, POC 232(H) 70 - 199 mg/dL Comment: For Glucose values <35 mg/dl when Hematocrit is >60 mg/dl,the test may not accurately detect significant hypoglycemia,and testing in the Laboratory should be considered if clinically indicated. Blood 09/16/2024 7:33 AM PATIENT SERVICE REP 09/16/2024 7:33 AM PATIENT SERVICE REP Flo Villagran MD LAB POCT ORDERABLES - DEVICE Final Result [facility] [address] [place] [address] * (ABNORMAL) CBC with auto differential (09/16/2024 5:30 AM PATIENT SERVICE REP) [facility] WBC 5.4 3.8 - 9.9 K/cumm Hgb 8.6(L) 11.9 - 15.5 g/dL [facility] Hct 28.2(L) 35.6 - 45.5 % [facility] Plt 81(L) 150 - 400 K/cumm [facility] MPV 13.9(H) 9.1 - 12.3 fL [facility] RBC 3.01(L) 3.90 - 5.20 M/cumm [facility] MCV 93.7 81.3 - 96.4 fL [facility] MCH 28.6 27.1 - 33.3 pg [facility] MCHC 30.5(L) 32.3 - 35.7 g/dL [facility] RDW CV 14.9 11.1 - 14.9 % [facility] RDW SD 51.3(H) 35.7 - 48.1 fL [facility] NRBC abs 0.00 0.00 - 0.01 K/cumm [facility] Blood 09/16/2024 5:30 AM PATIENT SERVICE REP 09/16/2024 5:39 AM PATIENT SERVICE REP us Flo Villagran MD LAB BLOOD ORDERABLES Final R esult [facility] [address] Department [place] [address] * (ABNORMAL) Manual Differential (09/16/2024 5:30 AM PATIENT SERVICE REP) [facility] Differential Manual Cells Counted 116 [facility] Neutrophil abs 4.4 1.5 - 6.5 K/cumm [facility] Imm gran abs 0.0 0.0 - 0.1 K/cumm [facility] Lymphocyte abs 0.6(L) 0.8 - 3.3 K/cumm [facility] Monocyte abs 0.3 0.2 - 0.8 K/cumm [facility] Eosinophil abs 0.0 0.0 - 0.5 K/cumm [facility] Neutrophil pct 81.0 % [facility] Comment: Interpretive Data Percent cell count reference ranges are not reported, since discordance with absolute values may lead to misinterpretation of CBC data. Current Interpretive Data was last revised on 2017. Lymphocyte pct 12.1 % [facility] Comment: Interpretive Data Percent cell count reference ranges are not reported, since discordance with absolute values may lead to misinterpretation of CBC data. Current Interpretive Data was last revised on 2017. Monocyte pct 6.0 % [facility] Comment: Interpretive Data Percent cell count reference ranges are not reported, since discordance with absolute values may lead to misinterpretation of CBC data. Current Interpretive Data was last revised on 2017. Eosinophil pct 0.9 % [facility] Comment: Interpretive Data Percent cell count reference ranges are not reported, since discordance with absolute values may lead to misinterpretation of CBC data. Current Interpretive Data was last revised on 2017. RBC morphology Present(A) [facility] Hypochromasia 3-7/HPF(A) [facility] Anisocytosis Slight(A) [facility] Microcytes 3-7/HPF(A) [facility] Morphology scrn See Comment [facility] Comment:PLT: Giant platelets present Blood 09/16/2024 5:30 AM PATIENT SERVICE REP 09/16/2024 5:39 AM PATIENT SERVICE REP Flo Villagran MD LAB BLOOD ORDERABLES Final R esult [facility] [address] Department [place] [address] * POCT glucose (09/16/2024 5:23 AM PATIENT SERVICE REP) Glucose, POC 178 70 - 199 mg/dL Comment: For Glucose values <35 mg/dl when Hematocrit is >60 mg/dl,the test may not accurately detect significant hypoglycemia,and testing in the Laboratory should be considered if clinically indicated. Blood 09/16/2024 5:23 AM PATIENT SERVICE REP 09/16/2024 5:23 AM PATIENT SERVICE REP Flo Villagran MD LAB POCT ORDERABLES - DEVICE Final Result [facility] [address] Department [place] [address] * X-ray chest 1 view (09/16/2024 4:37 AM PATIENT SERVICE REP) Anatomical Region Laterality Modality Body, Chest N/A Computed Radiogr aphy 09/16/2024 7:29 AM PATIENT SERVICE REP Impressions 09/16/2024 7:29 AM PATIENT SERVICE REP Endotracheal tube with tip approximately 3.6 cm superior to jessenia. Gastric tube extends inferior to the [id number] the study, below the GE junction. There are heterogeneous left mid lung and bibasilar lung opacities appear not significantly changed from prior. There is no pneumothorax or definite pleural effusion. Heart and mediastinum are unchanged. Electronically signed by: Abeba Castellano M.D. Narrative 09/16/2024 7:29 AM PATIENT SERVICE REP EXAMINATION: 1 view chest radiograph COMPARISON: 09/15/2024 INDICATION: ET Tube For endotracheal tube position Procedure Note Abeba Castellano MD - 09/16/2024 EXAMINATION: 1 view chest radiograph COMPARISON: 09/15/2024 INDICATION: ET Tube For endotracheal tube position IMPRESSION: Endotracheal tube with tip approximately 3.6 cm superior to jessenia. Gastric tube extends inferior to the [id number] the study, below the GE junction. There are heterogeneous left mid lung and bibasilar lung opacities appear not significantly changed from prior. There is no pneumothorax or definite pleural effusion. Heart and mediastinum are unchanged. Electronically signed by: Abeba Castellano M.D. Flo Villagran MD IMG XR PROCEDURES Final Resu lt * (ABNORMAL) eGFR (09/16/2024 4:05 AM PATIENT SERVICE REP) eGFR 33(L) >=60 mL/min/1. 73 m2 Comment: [...] last reviewed 2021. Blood 09/16/2024 4:05 AM PATIENT SERVICE REP 09/16/2024 4:12 AM PATIENT SERVICE REP Flo Villagran MD LAB BLOOD ORDERABLES Final R esult [facility] [address] Department [place] [address] * Blood culture Blood (09/16/2024 4:05 AM PATIENT SERVICE REP) Report Final Report: No growth Blood 09/16/2024 4:05 AM PATIENT SERVICE REP 09/16/2024 4:38 AM PATIENT SERVICE REP Narrative [facility] - 09/21/2024 7:01 AM PATIENT SERVICE REP Interpretive Data 1. Blood cultures are incubated and monitored continuously for 5 days (120 hours). The first negative report is issued within 24 hours of receipt in the laboratory. 2. All positive cultures are resulted and called to physicians/care providers as soon as they are detected. 3. A rapid molecular test for organism identification may be performed using the [employer] Blood Culture Identification panel. This assay detects microbial DNA in a blood culture broth. This assay has been cleared by the [place] Food and Drug Administration and its performance characteristics have been verified by the [facility]. Interpretive data was last revised on September 11, 2022. Flo Villagran MD LAB MICROBIOLOGY - GENERAL O RDERABLES Final Result Performing Organization Address [facility] Co de Phone Number [facility] [address] [facility] [place] [address] * (ABNORMAL) Triglycerides (09/16/2024 4:05 AM PATIENT SERVICE REP) Triglycerides 876(H) <=149 mg/dL Comment: Interpretive Data [...] revised on 2018. Blood 09/16/2024 4:05 AM PATIENT SERVICE REP 09/16/2024 4:05 AM PATIENT SERVICE REP Flo Villagran MD LAB BLOOD ORDERABLES Final R esult Performing Organization Address [facility] de Phone Number [facility] [address] [place] [address] * Magnesium (09/16/2024 4:05 AM PATIENT SERVICE REP) Magnesium 2.2 1.4 - 2.5 mg/dL Blood 09/16/2024 4:05 AM PATIENT SERVICE REP 09/16/2024 4:12 AM PATIENT SERVICE REP Flo Villagran MD LAB BLOOD ORDERABLES Final R esult Performing Organization Address [facility] Co de Phone Number [facility] [address] Department [place] [address] * (ABNORMAL) Renal function panel (09/16/2024 4:05 AM PATIENT SERVICE REP) [facility] Sodium 139 135 - 145 mmol/L Potassium, pl 3.3 3.3 - 4.9 mmol/L [facility] Chloride 107 97 - 110 mmol/L [facility] CO2 19(L) 22 - 32 mmol/L [facility] Anion gap 13 2 - 15 mmol/L [facility] BUN 47(H) 6 - 25 mg/dL [facility] Creatinine 1.85(H) 0.60 - 1.10 mg/dL [facility] Glucose 137 70 - 199 mg/dL [facility] Comment: Interpretive Data Fasting glucose >/= 126 [...] 2022. Calcium 7.8(L) 8.5 - 10.3 mg/dL [facility] Phosphorus, pl 2.8 2.3 - 4.5 mg/dL [facility] Albumin 2.0(L) 3.5 - 5.0 g/dL [facility] Blood 09/16/2024 4:05 AM PATIENT SERVICE REP 09/16/2024 4:12 AM PATIENT SERVICE REP us Flo Villagran MD LAB BLOOD ORDERABLES Final R esult [facility] [address] Department [place] [address] * POCT glucose (09/16/2024 3:45 AM PATIENT SERVICE REP) [facility] Glucose, POC 137 70 - 199 mg/dL Comment: For Glucose values <35 mg/dl when Hematocrit is >60 mg/dl,the test may not accurately detect significant hypoglycemia,and testing in the Laboratory should be considered if clinically indicated. Blood 09/16/2024 3:45 AM PATIENT SERVICE REP 09/16/2024 3:45 AM PATIENT SERVICE REP us Flo Villagran MD LAB POCT ORDERABLES - DEVICE Final Result [facility] [address] [place] Department [place] [address] * MRI Brain WO Contrast (09/16/2024 1:48 AM PATIENT SERVICE REP) Anatomical Region Laterality Modality Head and Neck N/A Magnetic Resonan ce 09/15/2024 10:4 0 PM PATIENT SERVICE REP Impressions 09/16/2024 12:11 PM PATIENT SERVICE REP No acute intracranial abnormality seen given motion limitations. For the purposes of senior quality control inspector, this study was initially interpreted by teleradiology. There is no significant discrepancy. Dictated by: Hugh Zelaya M.D. The radiology attending physician has personally reviewed this study, and had reviewed and/or edited this written report and agrees with it. Electronically signed by: Matthew Alonso MD, PHD Narrative 09/16/2024 12:11 PM PATIENT SERVICE REP EXAMINATION: Magnetic resonance imaging (MRI) of the [...] given motion limitations. For the purposes of senior quality control inspector, this study was initially interpreted by teleradiology. There is no significant discrepancy. Dictated by: Hugh Zelaya M.D. The radiology attending physician has personally reviewed this study, and had reviewed and/or edited this written report and agrees with it. Electronically signed by: Matthew Alonso MD, PHD Flo Villagran MD IM MRI PROCEDURES Final Res ult * POCT glucose (09/16/2024 1:06 AM PATIENT SERVICE REP) Glucose, POC 156 70 - 199 mg/dL Comment: For Glucose values <35 mg/dl when Hematocrit is >60 mg/dl,the test may not accurately detect significant hypoglycemia,and testing in the Laboratory should be considered if clinically indicated. Blood 09/16/2024 1:06 AM PATIENT SERVICE REP 09/16/2024 1:06 AM PATIENT SERVICE REP Flo Villagran MD LAB POCT ORDERABLES - DEVICE Final Result Performing Organization Address [facility] de Phone Number [facility] [address] [facility] [place] [address] * POCT glucose (09/16/2024 12:01 AM PATIENT SERVICE REP) Glucose, POC 155 70 - 199 mg/dL Comment: For Glucose values <35 mg/dl when Hematocrit is >60 mg/dl,the test may not accurately detect significant hypoglycemia,and testing in the Laboratory should be considered if clinically indicated. Blood 09/16/2024 12:0 1 AM PATIENT SERVICE REP 09/16/2024 12:01 AM PATIENT SERVICE REP Flo Villagran MD LAB POCT ORDERABLES - DEVICE Final Result Performing Organization Address [facility] de Phone Number [facility] [address] [facility] [place] [address] * POCT glucose (09/15/2024 9:09 PM PATIENT SERVICE REP) Glucose, POC 166 70 - 199 mg/dL Comment: For Glucose values <35 mg/dl when Hematocrit is >60 mg/dl,the test may not accurately detect significant hypoglycemia,and testing in the Laboratory should be considered if clinically indicated. Blood 09/15/2024 9:09 PM PATIENT SERVICE REP 09/15/2024 9:09 PM PATIENT SERVICE REP Flo Villagran MD LAB POCT ORDERABLES - DEVICE Final Result Performing Organization Address [facility] de Phone Number [facility] [address] [facility] [place] [address] * POCT glucose (09/15/2024 7:41 PM PATIENT SERVICE REP) Glucose, POC 140 70 - 199 mg/dL Comment: For Glucose values <35 mg/dl when Hematocrit is >60 mg/dl,the test may not accurately detect significant hypoglycemia,and testing in the Laboratory should be considered if clinically indicated. Blood 09/15/2024 7:41 PM PATIENT SERVICE REP 09/15/2024 7:41 PM PATIENT SERVICE REP Flo Villagran MD LAB POCT ORDERABLES - DEVICE Final Result Performing Organization Address [facility] Co de Phone Number [facility] [address] [facility] [place] [address] * POCT glucose (09/15/2024 5:12 PM PATIENT SERVICE REP) Glucose, POC 140 70 - 199 mg/dL Comment: For Glucose values <35 mg/dl when Hematocrit is >60 mg/dl,the test may not accurately detect significant hypoglycemia,and testing in the Laboratory should be considered if clinically indicated. Blood 09/15/2024 5:12 PM PATIENT SERVICE REP 09/15/2024 5:12 PM PATIENT SERVICE REP Flo Villagran MD LAB POCT ORDERABLES - DEVICE Final Result Performing Organization Address [facility] de Phone Number [facility] [address] [facility] [place] [address] * POCT glucose (09/15/2024 3:05 PM PATIENT SERVICE REP) Glucose, POC 117 70 - 199 mg/dL Comment: For Glucose values <35 mg/dl when Hematocrit is >60 mg/dl,the test may not accurately detect significant hypoglycemia,and testing in the Laboratory should be considered if clinically indicated. Blood 09/15/2024 3:05 PM PATIENT SERVICE REP 09/15/2024 3:05 PM PATIENT SERVICE REP Flo Villagran MD LAB POCT ORDERABLES - DEVICE Final Result Performing Organization Address [facility] Co de Phone Number [facility] [address] [facility] [place] [address] * (ABNORMAL) Aerobic culture and gram stain Sputum Sputum (09/15/2024 1:57 PM PATIENT SERVICE REP) Direct Specimen Exam Stain: Moderate polymorphonuclear leukocytes seen. Many Gram Positive Cocci Report Final Report: Heavy growth of: Staphylococcus aureus, methicillin susceptible Light growth normal sukhdev (.) [facility] Organism STAPHYLOCOCCUS AUREUS, METHICILLIN SUSCEPTIBLE [facility] Sputum (Sputum) 09/15/2024 1 :57 PM PATIENT SERVICE REP 09/15/2024 2:10 PM PATIENT SERVICE REP Narrative Organism Antibiotic Method Susceptibility Staphylococcus aureus, [...] MICROBIOLOGY - GENERAL O RDERABLES Final Result [facility] [address] Department [place] [address] * TRANSESOPHAGEAL ECHO (DEMI) W DOPPLER/CF WO CONTRAST (09/15/2024 1:43 PM PATIENT SERVICE REP) Pathologist [facility] LV EF 55-60 % CONS SCIMAGE Anatomical Region Laterality Modality Ultrasound 09/15/2024 12:4 5 PM PATIENT SERVICE REP Narrative 09/15/2024 5:05 PM PATIENT SERVICE REP [facility] [place] [address] [address] TRANSESOPHAGEAL ECHOCARDIOGRAM Patient Name: BROOKE MARSHALL : 1975 (48y 8m) Gender: F Study Date: 09/15/2024 12:45:30 PM Ht(Inch): 65 Wt(Lb): 202.01 BSA: 2.05 Radio Program Checker: Location: [id number] Order Provider: NILSON DUBOSE BMI: 33.61 BP: [...] intracardiac vegetation. Electronically Signed By: Nilson Dubose [facility] Card 09/15/2024 5:05:10 PM PATIENT SERVICE REP Procedure Note Nilson Dubose MD - 09/15/2024 [facility] [address] [place] [address] TRANSESOPHAGEAL ECHOCARDIOGRAM Patient Name: BROOKE MARSHALL : 1975 (48y 8m) Gender: F Study Date: 09/15/2024 12:45:30 PM Ht(Inch): 65 Wt(Lb): 202.01 BSA: 2.05 Radio Program Checker: Location: [id number] Order Provider: NILSON DUBOSE BMI: 33.61 BP: [...] intracardiac vegetation. Electronically Signed By: Nilson Dubose [facility] Card 09/15/2024 5:05:10 PM PATIENT SERVICE REP Nilson Dubose MD CV ECHO PROCEDURES Final Result * POCT glucose (09/15/2024 1:05 PM PATIENT SERVICE REP) [facility] Glucose, POC 151 70 - 199 mg/dL Comment: For Glucose values <35 mg/dl when Hematocrit is >60 mg/dl,the test may not accurately detect significant hypoglycemia,and testing in the Laboratory should be considered if clinically indicated. Blood 09/15/2024 1:05 PM PATIENT SERVICE REP 09/15/2024 1:05 PM PATIENT SERVICE REP us Flo Villagran MD LAB POCT ORDERABLES - DEVICE Final Result [facility] [address] Department [place] [address] * X-ray chest 1 view (09/15/2024 11:41 AM PATIENT SERVICE REP) Anatomical Region Laterality Modality Body, Chest N/A Computed Radiogr aphy 09/15/2024 12:0 0 PM PATIENT SERVICE REP Addenda Addendum by Cira Mancilla MD on 09/15/2024 1:17 PM PATIENT SERVICE REP Communicated to Dr. Villagran who confirmed that the tube has been pulled back. Dr. Mancilla on 09/15/2024 at 1:15pm. Electronically signed by: Cira Mancilla M.D. Impressions 09/15/2024 12:00 PM PATIENT SERVICE REP FINDINGS and IMPRESSION: Endotracheal tube terminates in the right bronchus, recommend withdrawal by about 6 cm. Feeding tube courses below the imaged [id number], past the GE junction. Increased airspace opacities in the left lung and increased prominence of right upper perihilar airspace opacities may represent progressive pneumonia, to be correlated clinically. Electronically signed by: Cira Mancilla M.D. Narrative 09/15/2024 12:00 PM PATIENT SERVICE REP EXAMINATION: XR CHEST 1 VIEW COMPARISON: 09/15/2024 HISTORY: For endotracheal tube position Procedure Note Cira Mancilla MD - 09/15/2024 EXAMINATION: XR CHEST 1 VIEW COMPARISON: 09/15/2024 HISTORY: For endotracheal tube position IMPRESSION: FINDINGS and IMPRESSION: Endotracheal tube terminates in the right bronchus, recommend withdrawal by about 6 cm. Feeding tube courses below the imaged [id number], past the GE junction. Increased airspace opacities in the left lung and increased prominence of right upper perihilar airspace opacities may represent progressive pneumonia, to be correlated clinically. Electronically signed by: Cira Mancilla M.D. Flo Villagran MD IMG XR PROCEDURES Edited Res ult - Final * (ABNORMAL) Blood gas, arterial (09/15/2024 11:34 AM PATIENT SERVICE REP) pH, Art 7.32(L) 7.35 - 7.45 PCO2, Arterial 48(H) 35 - 45 mmHg [facility] PO2, Arterial 264(H) 83 - 108 mmHg [facility] HCO3 Art (Calculated) 25 20 - 30 mmol/L [facility] BE, art -2 mmol/L [facility] Comment: Interpretive Data No Reference Range Established Current Interpretive Data was last revised on 2017 O2 Sat Art (Calculated) 100(H) 94 - 98 % [facility] Blood 09/15/2024 11:3 4 AM PATIENT SERVICE REP 09/15/2024 11:36 AM PATIENT SERVICE REP us Flo Villagran MD LAB BLOOD ORDERABLES Final R esult Performing Organization Address [facility] Co de Phone Number [facility] [address] Department [place] [address] * POCT glucose (09/15/2024 11:07 AM PATIENT SERVICE REP) Glucose, POC 183 70 - 199 mg/dL Comment: For Glucose values <35 mg/dl when Hematocrit is >60 mg/dl,the test may not accurately detect significant hypoglycemia,and testing in the Laboratory should be considered if clinically indicated. Blood 09/15/2024 11:0 7 AM PATIENT SERVICE REP 09/15/2024 11:07 AM PATIENT SERVICE REP us Flo Villagran MD LAB POCT ORDERABLES - DEVICE Final Result Performing Organization Address [facility] Co de Phone Number [facility] [address] Department [place] [address] * INTUBATION (09/15/2024 10:31 AM PATIENT SERVICE REP) Narrative Flo Villagran MD - 09/15/2024 10:31 AM PATIENT SERVICE REP Flo Villagran MD 09/15/2024 11:11 AM Intubation [...] * (ABNORMAL) POCT glucose (09/15/2024 9:16 AM PATIENT SERVICE REP) Glucose, POC 200(H) 70 - 199 mg/dL Comment: For Glucose values <35 mg/dl when Hematocrit is >60 mg/dl,the test may not accurately detect significant hypoglycemia,and testing in the Laboratory should be considered if clinically indicated. Blood 09/15/2024 9:16 AM PATIENT SERVICE REP 09/15/2024 9:16 AM PATIENT SERVICE REP Flo Villagran MD LAB POCT ORDERABLES - DEVICE Final Result Performing Organization Address [facility] Co de Phone Number [facility] [address] [facility] [place] [address] * POCT glucose (09/15/2024 7:06 AM PATIENT SERVICE REP) Glucose, POC 186 70 - 199 mg/dL Comment: For Glucose values <35 mg/dl when Hematocrit is >60 mg/dl,the test may not accurately detect significant hypoglycemia,and testing in the Laboratory should be considered if clinically indicated. Blood 09/15/2024 7:06 AM PATIENT SERVICE REP 09/15/2024 7:06 AM PATIENT SERVICE REP Flo Villagran MD LAB POCT ORDERABLES - DEVICE Final Result Performing Organization Address [facility] Co de Phone Number [facility] [address] [facility] [place] [address] * POCT glucose (09/15/2024 5:27 AM PATIENT SERVICE REP) Glucose, POC 187 70 - 199 mg/dL Comment: For Glucose values <35 mg/dl when Hematocrit is >60 mg/dl,the test may not accurately detect significant hypoglycemia,and testing in the Laboratory should be considered if clinically indicated. Blood 09/15/2024 5:27 AM PATIENT SERVICE REP 09/15/2024 5:27 AM PATIENT SERVICE REP Flo Villagran MD LAB POCT ORDERABLES - DEVICE Final Result Performing Organization Address [facility] Co de Phone Number [facility] [address] [facility] [place] [address] * POCT glucose (09/15/2024 3:51 AM PATIENT SERVICE REP) Glucose, POC 189 70 - 199 mg/dL Comment: For Glucose values <35 mg/dl when Hematocrit is >60 mg/dl,the test may not accurately detect significant hypoglycemia,and testing in the Laboratory should be considered if clinically indicated. Blood 09/15/2024 3:51 AM PATIENT SERVICE REP 09/15/2024 3:51 AM PATIENT SERVICE REP Flo Villagran MD LAB POCT ORDERABLES - DEVICE Final Result Performing Organization Address [facility] de Phone Number [facility] [address] [facility] [place] [address] * (ABNORMAL) aPTT (09/15/2024 3:48 AM PATIENT SERVICE REP) aPTT 49(H) 28 - 38 sec Comment: Interpretive Data Heparin therapeutic range: 66.0 - 100.0 seconds. Range based on correlation with therapeutic heparin activity range of 0.3 - 0.7 Units/mL. Current interpretive data was last revised on 2023. Blood 09/15/2024 3:48 AM PATIENT SERVICE REP 09/15/2024 3:52 AM PATIENT SERVICE REP Abeba Ash MD LAB BLOOD ORDERABLES Final R esult Performing Organization Address [facility] Co de Phone Number [facility] [address] [facility] [place] [address] * XR Chest 1 View (09/15/2024 3:41 AM PATIENT SERVICE REP) Anatomical Region Laterality Modality Body, Chest N/A Computed Radiogr aphy 09/15/2024 7:33 AM PATIENT SERVICE REP Impressions 09/15/2024 7:33 AM PATIENT SERVICE REP Comparison is made to 09/14/2024. A nasogastric tube tip is located with diaphragm, not included [id number]. There is slightly improving aeration within the left midlung and lung base which may represent improving pneumonia. The right mid to upper lung there is a persistent area of nodular consolidation which is favored to be infectious as well. No pleural effusion. No pneumothorax. Stable heart size. Electronically signed by: Ruiz Coles M.D. Narrative 09/15/2024 7:33 AM PATIENT SERVICE REP Examination: Chest 1 view Procedure Note Ruiz Coles MD - 09/15/2024 Examination: Chest 1 view IMPRESSION: Comparison is made to 09/14/2024. A nasogastric tube tip is located with diaphragm, not included [id number]. There is slightly improving aeration within the [...] lt * (ABNORMAL) eGFR (09/15/2024 1:50 AM PATIENT SERVICE REP) eGFR 40(L) >=60 mL/min/1. 73 m2 Comment: [...] last reviewed 2021. Blood 09/15/2024 1:50 AM PATIENT SERVICE REP 09/15/2024 2:27 AM PATIENT SERVICE REP Flo Villagran MD LAB BLOOD ORDERABLES Final R esult Performing Organization Address [facility]/ZIP Co de Phone Number [facility] [address] [place] [address] * (ABNORMAL) CBC without differential (09/15/2024 1:50 AM PATIENT SERVICE REP) WBC 5.0 3.8 - 9.9 K/cumm Hgb 9.9(L) 11.9 - 15.5 g/dL [facility] Hct 31.5(L) 35.6 - 45.5 % [facility] Plt 67(L) 150 - 400 K/cumm [facility] Comment:Automated count conf irmed by smear review. MPV 13.3(H) 9.1 - 12.3 fL [facility] RBC 3.39(L) 3.90 - 5.20 M/cumm [facility] MCV 92.9 81.3 - 96.4 fL [facility] MCH 29.2 27.1 - 33.3 pg [facility] MCHC 31.4(L) 32.3 - 35.7 g/dL [facility] RDW CV 15.0(H) 11.1 - 14.9 % [facility] RDW SD 51.5(H) 35.7 - 48.1 fL [facility] NRBC abs 0.00 0.00 - 0.01 K/cumm [facility] Blood 09/15/2024 1:50 AM PATIENT SERVICE REP 09/15/2024 2:27 AM PATIENT SERVICE REP Flo Villagran MD LAB BLOOD ORDERABLES Final R esult Performing Organization Address City/[facility]/ZIP Co de Phone Number [facility] [address] [place] [address] * (ABNORMAL) Phosphorus (09/15/2024 1:50 AM PATIENT SERVICE REP) Pathologist [facility] Phosphorus, pl 1.7(L) 2.3 - 4.5 mg/dL Blood 09/15/2024 1:50 AM PATIENT SERVICE REP 09/15/2024 2:27 AM PATIENT SERVICE REP Flo Villagran MD LAB BLOOD ORDERABLES Final R esult Performing Organization Address [facility] Co de Phone Number [facility] [address] [place] [address] * Magnesium (09/15/2024 1:50 AM PATIENT SERVICE REP) Pathologist [facility] Magnesium 2.4 1.4 - 2.5 mg/dL Comment:Reviewed Blood 09/15/2024 1:50 AM PATIENT SERVICE REP 09/15/2024 2:27 AM PATIENT SERVICE REP Flo Villagran MD LAB BLOOD ORDERABLES Final R esult Performing Organization Address [facility] Co de Phone Number [facility] [address] [facility] [place] [address] * Bilirubin, direct (09/15/2024 1:50 AM PATIENT SERVICE REP) Pathologist [facility] Bilirubin, direct 0.3 0.1 - 0.3 mg/dL Blood 09/15/2024 1:50 AM PATIENT SERVICE REP 09/15/2024 2:27 AM PATIENT SERVICE REP Flo Villagran MD LAB BLOOD ORDERABLES Final R esult Performing Organization Address [facility] Co de Phone Number [facility] [address] [place] [address] * (ABNORMAL) Comprehensive metabolic panel (09/15/2024 1:50 AM PATIENT SERVICE REP) Pathologist [facility] Sodium 147(H) 135 - 145 mmol/L Potassium, pl 3.1(L) 3.3 - 4.9 mmol/L [facility] Chloride 110 97 - 110 mmol/L [facility] CO2 24 22 - 32 mmol/L [facility] Anion gap 13 2 - 15 mmol/L [facility] BUN 44(H) 6 - 25 mg/dL [facility] Creatinine 1.56(H) 0.60 - 1.10 mg/dL [facility] Glucose 179 70 - 199 mg/dL [facility] Comment: Interpretive Data Fasting glucose >/= 126 [...] 2022. Calcium 8.5 8.5 - 10.3 mg/dL [facility] Bilirubin, total 0.5 0.1 - 1.2 mg/dL [facility] Protein, pl 5.6(L) 6.5 - 8.5 g/dL [facility] Albumin 2.4(L) 3.5 - 5.0 g/dL [facility] Alk phos 77 40 - 130 Units/L [facility] ALT 23 7 - 45 Units/L [facility] AST 35 10 - 45 Units/L [facility] Blood 09/15/2024 1:50 AM PATIENT SERVICE REP 09/15/2024 2:27 AM PATIENT SERVICE REP us Flo Villagran MD LAB BLOOD ORDERABLES Final R esult [facility] [address] Department [place] [address] * POCT glucose (09/15/2024 12:53 AM PATIENT SERVICE REP) [facility] Glucose, POC 166 70 - 199 mg/dL Comment: For Glucose values <35 mg/dl when Hematocrit is >60 mg/dl,the test may not accurately detect significant hypoglycemia,and testing in the Laboratory should be considered if clinically indicated. Blood 09/15/2024 12:5 3 AM PATIENT SERVICE REP 09/15/2024 12:53 AM PATIENT SERVICE REP Flo Villagran MD LAB POCT ORDERABLES - DEVICE Final Result Performing Organization Address [facility] de Phone Number [facility] [address] Department [place] [address] * POCT glucose (09/14/2024 11:15 PM PATIENT SERVICE REP) Glucose, POC 178 70 - 199 mg/dL Comment: For Glucose values <35 mg/dl when Hematocrit is >60 mg/dl,the test may not accurately detect significant hypoglycemia,and testing in the Laboratory should be considered if clinically indicated. Blood 09/14/2024 11:1 5 PM PATIENT SERVICE REP 09/14/2024 11:15 PM PATIENT SERVICE REP Flo Villagran MD LAB POCT ORDERABLES - DEVICE Final Result Performing Organization Address [facility] de Phone Number [facility] [address] Department [place] [address] * (ABNORMAL) aPTT (09/14/2024 9:19 PM PATIENT SERVICE REP) aPTT 57(H) 28 - 38 sec Comment: Interpretive Data Heparin therapeutic range: 66.0 - 100.0 seconds. Range based on correlation with therapeutic heparin activity range of 0.3 - 0.7 Units/mL. Current interpretive data was last revised on 2023. Blood 09/14/2024 9:19 PM PATIENT SERVICE REP 09/14/2024 9:19 PM PATIENT SERVICE REP Flo Villagran MD LAB BLOOD ORDERABLES Final R esult Performing Organization Address [facility]/ZIP Co de Phone Number [facility] [address] [facility] [place] [address] * POCT glucose (09/14/2024 9:16 PM PATIENT SERVICE REP) Glucose, POC 162 70 - 199 mg/dL Comment: For Glucose values <35 mg/dl when Hematocrit is >60 mg/dl,the test may not accurately detect significant hypoglycemia,and testing in the Laboratory should be considered if clinically indicated. Blood 09/14/2024 9:16 PM PATIENT SERVICE REP 09/14/2024 9:16 PM PATIENT SERVICE REP Flo Villagran MD LAB POCT ORDERABLES - DEVICE Final Result Performing Organization Address [facility] Co de Phone Number [facility] [address] [facility] [place] [address] * POCT glucose (09/14/2024 7:20 PM PATIENT SERVICE REP) Glucose, POC 171 70 - 199 mg/dL Comment: For Glucose values <35 mg/dl when Hematocrit is >60 mg/dl,the test may not accurately detect significant hypoglycemia,and testing in the Laboratory should be considered if clinically indicated. Blood 09/14/2024 7:20 PM PATIENT SERVICE REP 09/14/2024 7:20 PM PATIENT SERVICE REP us Flo Villagran MD LAB POCT ORDERABLES - DEVICE Final Result Performing Organization Address [facility] Co de Phone Number [facility] [address] [facility] [place] [address] * POCT glucose (09/14/2024 6:16 PM PATIENT SERVICE REP) Glucose, POC 183 70 - 199 mg/dL Comment: For Glucose values <35 mg/dl when Hematocrit is >60 mg/dl,the test may not accurately detect significant hypoglycemia,and testing in the Laboratory should be considered if clinically indicated. Blood 09/14/2024 6:16 PM PATIENT SERVICE REP 09/14/2024 6:16 PM PATIENT SERVICE REP Flo Villagran MD LAB POCT ORDERABLES - DEVICE Final Result Performing Organization Address [facility] de Phone Number [facility] [address] [facility] [place], [place] [id number] * POCT glucose (09/14/2024 4:55 PM PATIENT SERVICE REP) Glucose, POC 186 70 - 199 mg/dL Comment: For Glucose values <35 mg/dl when Hematocrit is >60 mg/dl,the test may not accurately detect significant hypoglycemia,and testing in the Laboratory should be considered if clinically indicated. Blood 09/14/2024 4:55 PM PATIENT SERVICE REP 09/14/2024 4:55 PM PATIENT SERVICE REP Flo Villagran MD LAB POCT ORDERABLES - DEVICE Final Result Performing Organization Address [facility] de Phone Number [facility] [address] [facility] [place] [address] * POCT glucose (09/14/2024 4:10 PM PATIENT SERVICE REP) Glucose, POC 179 70 - 199 mg/dL Comment: For Glucose values <35 mg/dl when Hematocrit is >60 mg/dl,the test may not accurately detect significant hypoglycemia,and testing in the Laboratory should be considered if clinically indicated. Blood 09/14/2024 4:10 PM PATIENT SERVICE REP 09/14/2024 4:10 PM PATIENT SERVICE REP Flo Villagran MD LAB POCT ORDERABLES - DEVICE Final Result Performing Organization Address [facility] de Phone Number [facility] [address] [facility] [address] [place], [place] [id number] * POCT glucose (09/14/2024 3:03 PM PATIENT SERVICE REP) Glucose, POC 179 70 - 199 mg/dL Comment: For Glucose values <35 mg/dl when Hematocrit is >60 mg/dl,the test may not accurately detect significant hypoglycemia,and testing in the Laboratory should be considered if clinically indicated. Blood 09/14/2024 3:03 PM PATIENT SERVICE REP 09/14/2024 3:03 PM PATIENT SERVICE REP Flo Villagran MD LAB POCT ORDERABLES - DEVICE Final Result Performing Organization Address [facility] Co de Phone Number [facility] [address] [employer] [place], [place] [id number] * (ABNORMAL) eGFR (09/14/2024 1:05 PM PATIENT SERVICE REP) eGFR 41(L) >=60 mL/min/1. 73 m2 Comment: [...] last reviewed 2021. Blood 09/14/2024 1:05 PM PATIENT SERVICE REP 09/14/2024 1:20 PM PATIENT SERVICE REP Flo Villagran MD LAB BLOOD ORDERABLES Final R esult Performing Organization Address [facility] Co de Phone Number [facility] [address] Department of [place], [place] [id number] * (ABNORMAL) aPTT (09/14/2024 1:05 PM PATIENT SERVICE REP) aPTT 112(H) 28 - 38 sec Comment: Interpretive Data Heparin therapeutic range: 66.0 - 100.0 seconds. Range based on correlation with therapeutic heparin activity range of 0.3 - 0.7 Units/mL. Current interpretive data was last revised on 2023. Blood 09/14/2024 1:05 PM PATIENT SERVICE REP 09/14/2024 1:19 PM PATIENT SERVICE REP Flo Villagran MD LAB BLOOD ORDERABLES Final R esult [facility] [address] Department [place] [address] * (ABNORMAL) Renal function panel (09/14/2024 1:05 PM PATIENT SERVICE REP) [facility] Sodium 152(H) 135 - 145 mmol/L Potassium, pl 3.3 3.3 - 4.9 mmol/L [facility] Chloride 115(H) 97 - 110 mmol/L [facility] CO2 25 22 - 32 mmol/L [facility] Anion gap 12 2 - 15 mmol/L [facility] BUN 45(H) 6 - 25 mg/dL [facility] Creatinine 1.54(H) 0.60 - 1.10 mg/dL [facility] Glucose 177 70 - 199 mg/dL [facility] Comment: Interpretive Data Fasting glucose >/= 126 [...] 2022. Calcium 8.8 8.5 - 10.3 mg/dL [facility] Phosphorus, pl 2.6 2.3 - 4.5 mg/dL [facility] Albumin 2.5(L) 3.5 - 5.0 g/dL [facility] Blood 09/14/2024 1:05 PM PATIENT SERVICE REP 09/14/2024 1:20 PM PATIENT SERVICE REP Flo Villagran MD LAB BLOOD ORDERABLES Final R esult Performing Organization Address [facility] Co de Phone Number [facility] [address] [place] [address] * POCT glucose (09/14/2024 12:55 PM PATIENT SERVICE REP) Glucose, POC 168 70 - 199 mg/dL Comment: For Glucose values <35 mg/dl when Hematocrit is >60 mg/dl,the test may not accurately detect significant hypoglycemia,and testing in the Laboratory should be considered if clinically indicated. Blood 09/14/2024 12:5 5 PM PATIENT SERVICE REP 09/14/2024 12:55 PM PATIENT SERVICE REP Flo Villagran MD LAB POCT ORDERABLES - DEVICE Final Result Performing Organization Address [facility] de Phone Number [facility] [address] [facility] [place] [address] * POCT glucose (09/14/2024 12:01 PM PATIENT SERVICE REP) Glucose, POC 170 70 - 199 mg/dL Comment: For Glucose values <35 mg/dl when Hematocrit is >60 mg/dl,the test may not accurately detect significant hypoglycemia,and testing in the Laboratory should be considered if clinically indicated. Blood 09/14/2024 12:0 1 PM PATIENT SERVICE REP 09/14/2024 12:01 PM PATIENT SERVICE REP Flo Villagran MD LAB POCT ORDERABLES - DEVICE Final Result Performing Organization Address [facility] Co de Phone Number [facility] [address] [place] [address] * POCT glucose (09/14/2024 11:05 AM PATIENT SERVICE REP) Glucose, POC 188 70 - 199 mg/dL Comment: For Glucose values <35 mg/dl when Hematocrit is >60 mg/dl,the test may not accurately detect significant hypoglycemia,and testing in the Laboratory should be considered if clinically indicated. Blood 09/14/2024 11:0 5 AM PATIENT SERVICE REP 09/14/2024 11:05 AM PATIENT SERVICE REP Flo Villagran MD LAB POCT ORDERABLES - DEVICE Final Result [facility] [address] Department [place] [address] * POCT glucose (09/14/2024 10:04 AM PATIENT SERVICE REP) Glucose, POC 195 70 - 199 mg/dL Comment: For Glucose values <35 mg/dl when Hematocrit is >60 mg/dl,the test may not accurately detect significant hypoglycemia,and testing in the Laboratory should be considered if clinically indicated. Blood 09/14/2024 10:0 4 AM PATIENT SERVICE REP 09/14/2024 10:04 AM PATIENT SERVICE REP Flo Villagran MD LAB POCT ORDERABLES - DEVICE Final Result Performing Organization Address [facility]/ZIP Co de Phone Number [facility] [address] Department [place] [address] * (ABNORMAL) Blood culture Blood (09/14/2024 9:42 AM PATIENT SERVICE REP) [facility] Direct Specimen Exam Stain: Gram Positive Cocci in clusters Test result called to and read back by Ana Maria Grier RN on 09/15/2024 05:37:49 by [place]. Report Final Report: Staphylococcus aureus, methicillin susceptible Susceptibility reported on this organism on previous culture [id number] (.) [facility] Organism STAPHYLOCOCCUS AUREUS, METHICILLIN SUSCEPTIBLE [facility] Blood 09/14/2024 9:42 AM PATIENT SERVICE REP 09/14/2024 9:50 AM PATIENT SERVICE REP Narrative [facility] - 09/16/2024 10:13 AM PATIENT SERVICE REP From a different site than #1. Interpretive [...] organism identification may be performed using the RawbotsArray Blood Culture Identification panel. This assay detects microbial DNA in a blood culture broth. This assay has been cleared by the [facility] Food and Drug Administration and its performance characteristics have been verified by the [facility]. Interpretive data was last revised on September 11, 2022. Flo Villagran MD LAB MICROBIOLOGY - GENERAL O RDERABLES Final Result Performing Organization Address [facility] Co de Phone Number [facility] [address] [place] [address] * Blood culture Blood (09/14/2024 9:42 AM PATIENT SERVICE REP) Report Final Report: No growth Blood 09/14/2024 9:42 AM PATIENT SERVICE REP 09/14/2024 12:44 PM PATIENT SERVICE REP Narrative [facility] - 09/19/2024 1:00 PM PATIENT SERVICE REP Interpretive Data 1. Blood cultures are incubated and monitored continuously for 5 days (120 hours). The first negative report is issued within 24 hours of receipt in the laboratory. 2. All positive cultures are resulted and called to physicians/care providers as soon as they are detected. 3. A rapid molecular test for organism identification may be performed using the [employer] FilmArray Blood Culture Identification panel. This assay detects microbial DNA in a blood culture broth. This assay has been cleared by the [place] Food and Drug Administration and its performance characteristics have been verified by the [facility]. Interpretive data was last revised on September 11, 2022. Flo Villagran MD LAB MICROBIOLOGY - GENERAL O RDERABLES Final Result Performing Organization Address [facility]/ZIP Co de Phone Number [facility] [address] Department [place] [address] * (ABNORMAL) POCT glucose (09/14/2024 8:56 AM PATIENT SERVICE REP) Glucose, POC 228(H) 70 - 199 mg/dL Comment: For Glucose values <35 mg/dl when Hematocrit is >60 mg/dl,the test may not accurately detect significant hypoglycemia,and testing in the Laboratory should be considered if clinically indicated. Blood 09/14/2024 8:56 AM PATIENT SERVICE REP 09/14/2024 8:56 AM PATIENT SERVICE REP Flo Villagran MD LAB POCT ORDERABLES - DEVICE Final Result Performing Organization Address [facility] Co de Phone Number [facility] [address] [facility] [place] [address] * (ABNORMAL) Blood gas, arterial (09/14/2024 8:08 AM PATIENT SERVICE REP) pH, Art 7.34(L) 7.35 - 7.45 PCO2, Arterial 45 35 - 45 mmHg [facility] PO2, Arterial 79(L) 83 - 108 mmHg [facility] HCO3 Art (Calculated) 24 20 - 30 mmol/L [facility] BE, art -2 mmol/L [facility] Comment: Interpretive Data No Reference Range Established Current Interpretive Data was last revised on 2017 O2 Sat Art (Calculated) 95 94 - 98 % [facility] Blood 09/14/2024 8:08 AM PATIENT SERVICE REP 09/14/2024 8:11 AM PATIENT SERVICE REP Flo Villagran MD LAB BLOOD ORDERABLES Final R esult Performing Organization Address [facility]/ZIP Co de Phone Number [facility] [address] [facility] [place] [address] * (ABNORMAL) POCT glucose (09/14/2024 7:50 AM PATIENT SERVICE REP) Glucose, POC 235(H) 70 - 199 mg/dL Comment: For Glucose values <35 mg/dl when Hematocrit is >60 mg/dl,the test may not accurately detect significant hypoglycemia,and testing in the Laboratory should be considered if clinically indicated. Blood 09/14/2024 7:50 AM PATIENT SERVICE REP 09/14/2024 7:50 AM PATIENT SERVICE REP us Flo Villagran MD LAB POCT ORDERABLES - DEVICE Final Result Performing Organization Address [facility] de Phone Number [facility] [address] [facility] [place] [address] * (ABNORMAL) aPTT (09/14/2024 6:06 AM PATIENT SERVICE REP) aPTT >150(C) 28 - 38 sec Comment: Critical result called to and read back by Tatiana Sutton (RN) on 09/14/2024 07:20:52 PATIENT SERVICE REP to [id number]. Specimen integrity checked. No clot Interpretive Data Heparin therapeutic range: 66.0 - 100.0 seconds. Range based on correlation with therapeutic heparin activity range of 0.3 - 0.7 Units/mL. Current interpretive data was last revised on 2023. Blood 09/14/2024 6:06 AM PATIENT SERVICE REP 09/14/2024 6:23 AM PATIENT SERVICE REP us Abeba Ash MD LAB BLOOD ORDERABLES Final R esult Performing Organization Address [facility] de Phone Number [facility] [address] [facility] [place] [address] * (ABNORMAL) POCT glucose (09/14/2024 4:10 AM PATIENT SERVICE REP) Glucose, POC 301(H) 70 - 199 mg/dL Comment: For Glucose values <35 mg/dl when Hematocrit is >60 mg/dl,the test may not accurately detect significant hypoglycemia,and testing in the Laboratory should be considered if clinically indicated. Blood 09/14/2024 4:10 AM PATIENT SERVICE REP 09/14/2024 4:10 AM PATIENT SERVICE REP Flo Villagran MD LAB POCT ORDERABLES - DEVICE Final Result [facility] [address] Department [place] [address] * XR Chest 1 View (09/14/2024 3:10 AM PATIENT SERVICE REP) Anatomical Region Laterality Modality Body, Chest N/A Computed Radiogr aphy 09/14/2024 7:30 AM PATIENT SERVICE REP Impressions 09/14/2024 7:30 AM PATIENT SERVICE REP Comparison is made to prior chest radiograph dated 09/13/2024. Feeding tube terminates in the stomach. There are increased patchy opacities in the left greater than right lung bases. Findings are most consistent with pneumonia, possibly related to aspiration. No pleural effusion. No pneumothorax. Stable heart size. Electronically signed by: Pippa Sin M.D. Narrative 09/14/2024 7:30 AM PATIENT SERVICE REP EXAMINATION: XR CHEST 1 VIEW Procedure Note [...] size. Electronically signed by: Pippa Sin M.D. us Flo Villagran MD IMG XR PROCEDURES Final Resu lt * (ABNORMAL) eGFR (09/14/2024 1:59 AM PATIENT SERVICE REP) eGFR 38(L) >=60 mL/min/1. 73 m2 Comment: [...] last reviewed 2021. Blood 09/14/2024 1:59 AM PATIENT SERVICE REP 09/14/2024 2:14 AM PATIENT SERVICE REP us Flo Villagran MD LAB BLOOD ORDERABLES Final R esult [facility] [address] Department [place] [address] * (ABNORMAL) Manual Differential (09/14/2024 1:59 AM PATIENT SERVICE REP) Cells Counted 125 Neutrophil abs 3.5 1.5 - 6.5 K/cumm [facility] Imm gran abs 0.1 0.0 - 0.1 K/cumm [facility] Lymphocyte abs 0.3(L) 0.8 - 3.3 K/cumm [facility] Monocyte abs 0.4 0.2 - 0.8 K/cumm [facility] Neutrophil pct 83.2 % [facility] Comment: Interpretive Data Percent cell count reference ranges are not reported, since discordance with absolute values may lead to misinterpretation of CBC data. Current Interpretive Data was last revised on 2017. Lymphocyte pct 6.4 % [facility] Comment: Interpretive Data Percent cell count reference ranges are not reported, since discordance with absolute values may lead to misinterpretation of CBC data. Current Interpretive Data was last revised on 2017. Monocyte pct 8.8 % [facility] Comment: Interpretive Data Percent cell count reference ranges are not reported, since discordance with absolute values may lead to misinterpretation of CBC data. Current Interpretive Data was last revised on 2017. Metamyelocyte pct 1.6(H) 0.0 - 0.0 % [facility] RBC morphology Present(A) [facility] Anisocytosis Slight(A) [facility] Poikilocytosis Moderate(A ) [facility] Echinocytes 3-7/HPF(A) [facility] Platelet estimate Decreased( A) [facility] Morphology scrn See Comment [facility] Comment:WBC: Toxic Vacuolati on present PLT: Platelet morphology normal Automated count not confirmed by smear review; See platelet estimate Blood 09/14/2024 1:59 AM PATIENT SERVICE REP 09/14/2024 2:14 AM PATIENT SERVICE REP Flo Villagran MD LAB BLOOD ORDERABLES Final R esult [facility] [address] Department [place] [address] * (ABNORMAL) CBC without differential (09/14/2024 1:59 AM PATIENT SERVICE REP) WBC 4.2 3.8 - 9.9 K/cumm Hgb 11.1(L) 11.9 - 15.5 g/dL [facility] Hct 36.5 35.6 - 45.5 % [facility] Plt 71(L) 150 - 400 K/cumm [facility] Comment:no clot MPV 12.8(H) 9.1 - 12.3 fL [facility] RBC 3.85(L) 3.90 - 5.20 M/cumm [facility] MCV 94.8 81.3 - 96.4 fL [facility] MCH 28.8 27.1 - 33.3 pg [facility] MCHC 30.4(L) 32.3 - 35.7 g/dL [facility] RDW CV 14.8 11.1 - 14.9 % [facility] RDW SD 51.8(H) 35.7 - 48.1 fL [facility] NRBC abs 0.00 0.00 - 0.01 K/cumm [facility] Blood 09/14/2024 1:59 AM PATIENT SERVICE REP 09/14/2024 2:14 AM PATIENT SERVICE REP Flo Villagran MD LAB BLOOD ORDERABLES Final R esult Performing Organization Address [facility] Co de Phone Number [facility] [address] [facility] [place] [address] * Phosphorus (09/14/2024 1:59 AM PATIENT SERVICE REP) Phosphorus, pl 4.2 2.3 - 4.5 mg/dL Comment:Reviewed Blood 09/14/2024 1:59 AM PATIENT SERVICE REP 09/14/2024 2:14 AM PATIENT SERVICE REP Flo Villagran MD LAB BLOOD ORDERABLES Final R esult Performing Organization Address [facility] de Phone Number [facility] [address] [facility] [place] [address] * Magnesium (09/14/2024 1:59 AM PATIENT SERVICE REP) Magnesium 1.8 1.4 - 2.5 mg/dL Blood 09/14/2024 1:59 AM PATIENT SERVICE REP 09/14/2024 2:14 AM PATIENT SERVICE REP Result [facility] Flo Villagran MD LAB BLOOD ORDERABLES Final R esult Performing Organization Address [facility] de Phone Number [facility] [address] [facility] [place] [address] * Bilirubin, direct (09/14/2024 1:59 AM PATIENT SERVICE REP) Bilirubin, direct 0.3 0.1 - 0.3 mg/dL Blood 09/14/2024 1:59 AM PATIENT SERVICE REP 09/14/2024 2:14 AM PATIENT SERVICE REP Flo Villagran MD LAB BLOOD ORDERABLES Final R esult Performing Organization Address [facility] de Phone Number [facility] [address] Department [place] [address] * (ABNORMAL) Comprehensive metabolic panel (09/14/2024 1:59 AM PATIENT SERVICE REP) Sodium 149(H) 135 - 145 mmol/L Potassium, pl 3.8 3.3 - 4.9 mmol/L [facility] Chloride 112(H) 97 - 110 mmol/L [facility] CO2 20(L) 22 - 32 mmol/L [facility] Anion gap 17(H) 2 - 15 mmol/L [facility] BUN 44(H) 6 - 25 mg/dL [facility] Creatinine 1.63(H) 0.60 - 1.10 mg/dL [facility] Glucose 312(H) 70 - 199 mg/dL [facility] Comment: Interpretive Data Fasting glucose >/= 126 [...] 2022. Calcium 8.5 8.5 - 10.3 mg/dL [facility] Bilirubin, total 0.6 0.1 - 1.2 mg/dL [facility] Protein, pl 6.0(L) 6.5 - 8.5 g/dL [facility] Albumin 2.8(L) 3.5 - 5.0 g/dL [facility] Alk phos 96 40 - 130 Units/L [facility] ALT 28 7 - 45 Units/L [facility] AST 51(H) 10 - 45 Units/L [facility] Blood 09/14/2024 1:59 AM PATIENT SERVICE REP 09/14/2024 2:14 AM PATIENT SERVICE REP Flo Villagran MD LAB BLOOD ORDERABLES Final R esult Performing Organization Address [facility] Co de Phone Number [facility] [address] [place] [address] * (ABNORMAL) POCT glucose (09/14/2024 12:41 AM PATIENT SERVICE REP) Glucose, POC 266(H) 70 - 199 mg/dL Comment: For Glucose values <35 mg/dl when Hematocrit is >60 mg/dl,the test may not accurately detect significant hypoglycemia,and testing in the Laboratory should be considered if clinically indicated. Blood 09/14/2024 12:4 1 AM PATIENT SERVICE REP 09/14/2024 12:41 AM PATIENT SERVICE REP us Flo Villagran MD LAB POCT ORDERABLES - DEVICE Final Result Performing Organization Address [facility] de Phone Number [facility] [address] [facility] [place], [place] [id number] * (ABNORMAL) aPTT (09/13/2024 9:58 PM PATIENT SERVICE REP) aPTT 148(C) 28 - 38 sec Comment: spoke with Linda Jean (RN) 09/13/2024 22:44:39 PATIENT SERVICE REP [id number] Interpretive Data Heparin therapeutic range: 66.0 - 100.0 seconds. Range based on correlation with therapeutic heparin activity range of 0.3 - 0.7 Units/mL. Current interpretive data was last revised on 2023. Blood 09/13/2024 9:58 PM PATIENT SERVICE REP 09/13/2024 10:02 PM PATIENT SERVICE REP us Flo Villagran MD LAB BLOOD ORDERABLES Final R esult Performing Organization Address [facility] Co de Phone Number [facility] [address] [facility] [place], [place] [id number] * XR Abdomen 2 Views Erect and or Decubitus (09/13/2024 9:41 PM PATIENT SERVICE REP) Anatomical Region Laterality Modality Body, Abdomen N/A Computed Radiogr aphy 09/14/2024 9:14 AM PATIENT SERVICE REP Impressions 09/14/2024 9:14 AM PATIENT SERVICE REP Supine and upright views of the abdomen [...] Alfonso Taylor M.D. Narrative 09/14/2024 9:14 AM PATIENT SERVICE REP EXAMINATION: XR ABDOMEN ERECT AND OR DECUBITUS [...] * (ABNORMAL) POCT glucose (09/13/2024 7:57 PM PATIENT SERVICE REP) Glucose, POC 249(H) 70 - 199 mg/dL Comment: For Glucose values <35 mg/dl when Hematocrit is >60 mg/dl,the test may not accurately detect significant hypoglycemia,and testing in the Laboratory should be considered if clinically indicated. Blood 09/13/2024 7:57 PM PATIENT SERVICE REP 09/13/2024 7:57 PM PATIENT SERVICE REP us Flo Villagran MD LAB POCT ORDERABLES - DEVICE Final Result Performing Organization Address [facility] Co de Phone Number [facility] [address] Department [place] [address] * (ABNORMAL) eGFR (09/13/2024 6:33 PM PATIENT SERVICE REP) eGFR 47(L) >=60 mL/min/1. 73 m2 Comment: [...] last reviewed 2021. Blood 09/13/2024 6:33 PM PATIENT SERVICE REP 09/13/2024 6:41 PM PATIENT SERVICE REP Flo Villagran MD LAB BLOOD ORDERABLES Final R esult Performing Organization Address [facility]/ZIP Co de Phone Number [facility] [address] [place] [address] * (ABNORMAL) Renal function panel (09/13/2024 6:33 PM PATIENT SERVICE REP) Sodium 146(H) 135 - 145 mmol/L Potassium, pl 3.6 3.3 - 4.9 mmol/L [facility] Chloride 112(H) 97 - 110 mmol/L [facility] CO2 20(L) 22 - 32 mmol/L [facility] Anion gap 14 2 - 15 mmol/L [facility] BUN 42(H) 6 - 25 mg/dL [facility] Creatinine 1.38(H) 0.60 - 1.10 mg/dL [facility] Glucose 182 70 - 199 mg/dL [facility] Comment: Interpretive Data Fasting glucose >/= 126 [...] 2022. Calcium 7.9(L) 8.5 - 10.3 mg/dL [facility] Phosphorus, pl 2.1(L) 2.3 - 4.5 mg/dL [facility] Albumin 2.4(L) 3.5 - 5.0 g/dL [facility] Blood 09/13/2024 6:33 PM PATIENT SERVICE REP 09/13/2024 6:41 PM PATIENT SERVICE REP us Flo Villagran MD LAB BLOOD ORDERABLES Final R esult [facility] [address] Department [place] [address] * ECG 12 lead (09/13/2024 5:24 PM PATIENT SERVICE REP) 09/13/2024 5:24 PM PATIENT SERVICE REP Narrative [facility] - 09/14/2024 12:02 AM PATIENT SERVICE REP Vent Rate: 136 bpm RR Interval: 440 msec MI Interval: 122 msec QRS Duration: 86 msec QT Interval: 330 msec QTC Interval: 410 msec P-R-T [place]: 57 - -14 - 116 degrees IMPRESSION: SINUS TACHYCARDIA ST DEVIATION AND MODERATE T-WAVE ABNORMALITY, CONSIDER LATERAL ISCHEMIA ABNORMAL ECG Electronically Signed By: Nilson Dubose [facility] Card Flo Villagran MD ECG ORDERABLES Final Result Performing Organization Address [facility] Co de Phone Number [facility] * POCT glucose (09/13/2024 4:29 PM PATIENT SERVICE REP) Glucose, POC 160 70 - 199 mg/dL Comment: For Glucose values <35 mg/dl when Hematocrit is >60 mg/dl,the test may not accurately detect significant hypoglycemia,and testing in the Laboratory should be considered if clinically indicated. Blood 09/13/2024 4:29 PM PATIENT SERVICE REP 09/13/2024 4:29 PM PATIENT SERVICE REP Flo Villagran MD LAB POCT ORDERABLES - DEVICE Final Result Performing Organization Address [facility] de Phone Number [facility] [address] Department of [place] [place] [address] * POCT glucose (09/13/2024 3:18 PM PATIENT SERVICE REP) Glucose, POC 92 70 - 199 mg/dL Comment: For Glucose values <35 mg/dl when Hematocrit is >60 mg/dl,the test may not accurately detect significant hypoglycemia,and testing in the Laboratory should be considered if clinically indicated. Blood 09/13/2024 3:18 PM PATIENT SERVICE REP 09/13/2024 3:18 PM PATIENT SERVICE REP Flo Villagran MD LAB POCT ORDERABLES - DEVICE Final Result Performing Organization Address [facility] Co de Phone Number [facility] [address] Department [place] [address] * POCT glucose (09/13/2024 2:29 PM PATIENT SERVICE REP) Glucose, POC 102 70 - 199 mg/dL Comment: For Glucose values <35 mg/dl when Hematocrit is >60 mg/dl,the test may not accurately detect significant hypoglycemia,and testing in the Laboratory should be considered if clinically indicated. Blood 09/13/2024 2:29 PM PATIENT SERVICE REP 09/13/2024 2:29 PM PATIENT SERVICE REP Flo Villagran MD LAB POCT ORDERABLES - DEVICE Final Result Performing Organization Address [facility] Co de Phone Number [facility] [address] Department of [place], [place] [id number] * (ABNORMAL) aPTT (09/13/2024 2:28 PM PATIENT SERVICE REP) [facility] aPTT 102(H) 28 - 38 sec Comment: Interpretive Data Heparin therapeutic range: 66.0 - 100.0 seconds. Range based on correlation with therapeutic heparin activity range of 0.3 - 0.7 Units/mL. Current interpretive data was last revised on 2023. Blood 09/13/2024 2:28 PM PATIENT SERVICE REP 09/13/2024 2:36 PM PATIENT SERVICE REP Flo Villagran MD LAB BLOOD ORDERABLES Final R esult Performing Organization Address [facility] de Phone Number [facility] [address] [place] [address] * POCT glucose (09/13/2024 1:10 PM PATIENT SERVICE REP) [facility] Glucose, POC 117 70 - 199 mg/dL Comment: For Glucose values <35 mg/dl when Hematocrit is >60 mg/dl,the test may not accurately detect significant hypoglycemia,and testing in the Laboratory should be considered if clinically indicated. Blood 09/13/2024 1:10 PM PATIENT SERVICE REP 09/13/2024 1:10 PM PATIENT SERVICE REP Flo Villagran MD LAB POCT ORDERABLES - DEVICE Final Result Performing Organization Address [facility] Co de Phone Number [facility] [address] [facility] [place], [place] [id number] * (ABNORMAL) eGFR (09/13/2024 12:22 PM PATIENT SERVICE REP) [facility] eGFR 46(L) >=60 mL/min/1. 73 m2 Comment: [...] reviewed 2021. Blood 09/13/2024 12:2 2 PM PATIENT SERVICE REP 09/13/2024 12:40 PM PATIENT SERVICE REP us Abeba Ash MD LAB BLOOD ORDERABLES Final R esult [facility] [address] Department Code for [employer] [place], [place] [id number] * Phosphorus (09/13/2024 12:22 PM PATIENT SERVICE REP) Phosphorus, pl 2.3 2.3 - 4.5 mg/dL Blood 09/13/2024 12:2 2 PM PATIENT SERVICE REP 09/13/2024 12:40 PM PATIENT SERVICE REP us Abeba Ash MD LAB BLOOD ORDERABLES Final R esult [facility] [address] Department [place] [address] * Magnesium (09/13/2024 12:22 PM PATIENT SERVICE REP) Magnesium 1.9 1.4 - 2.5 mg/dL Blood 09/13/2024 12:2 2 PM PATIENT SERVICE REP 09/13/2024 12:40 PM PATIENT SERVICE REP Abeba Ash MD LAB BLOOD ORDERABLES Final R esult Performing Organization Address City/[facility]/ZIP Co de Phone Number [facility] [address] Department [place] [address] * (ABNORMAL) Basic metabolic panel (09/13/2024 12:22 PM PATIENT SERVICE REP) [facility] Sodium 146(H) 135 - 145 mmol/L Potassium, pl 3.5 3.3 - 4.9 mmol/L [facility] Chloride 111(H) 97 - 110 mmol/L [facility] CO2 22 22 - 32 mmol/L [facility] Anion gap 13 2 - 15 mmol/L [facility] BUN 47(H) 6 - 25 mg/dL [facility] Creatinine 1.41(H) 0.60 - 1.10 mg/dL [facility] Glucose 141 70 - 199 mg/dL [facility] Comment: Interpretive Data Fasting glucose >/= 126 [...] 2022. Calcium 8.6 8.5 - 10.3 mg/dL [facility] Blood 09/13/2024 12:2 2 PM PATIENT SERVICE REP 09/13/2024 12:40 PM PATIENT SERVICE REP us Abeba Ash MD LAB BLOOD ORDERABLES Final R esult Performing Organization Address City/[facility]/ZIP Co de Phone Number [facility] [address] [place] [address] * POCT glucose (09/13/2024 12:20 PM PATIENT SERVICE REP) Glucose, POC 142 70 - 199 mg/dL Comment: For Glucose values <35 mg/dl when Hematocrit is >60 mg/dl,the test may not accurately detect significant hypoglycemia,and testing in the Laboratory should be considered if clinically indicated. Blood 09/13/2024 12:2 0 PM PATIENT SERVICE REP 09/13/2024 12:20 PM PATIENT SERVICE REP Flo Vlilagran MD LAB POCT ORDERABLES - DEVICE Final Result [facility] [address] Department [place] [address] * US Carotids Duplex Bilateral (09/13/2024 11:55 AM PATIENT SERVICE REP) Anatomical Region Laterality Modality Vascular Bilateral Ultrasound 09/13/2024 12:3 7 PM PATIENT SERVICE REP Impressions 09/13/2024 12:37 PM PATIENT SERVICE REP 1) There are minimal non-hemodynamic plaque formations [...] Kwaku Tolentino M.D. Narrative 09/13/2024 12:37 PM PATIENT SERVICE REP DATE:09/13/2024 10:00 AM EXAM: Duplex imaging of [...] W DOPPLER/CF W CONTRAST (09/13/2024 11:24 AM PATIENT SERVICE REP) LV EF 45-50 % CONS SCIMAGE Anatomical Region Laterality Modality Ultrasound 09/13/2024 10:2 8 AM PATIENT SERVICE REP Narrative 09/13/2024 4:50 PM PATIENT SERVICE REP [id number] [place] [address] ECHOCARDIOGRAM Patient Name: BROOKE MARSHALL R : 1975 (48y 8m) Gender: F Study Date: 09/13/2024 10:28:21 AM Ht(Inch): 65 Wt(Lb): 201.94 BSA: 2.05 Radio Program Checker: MINH Location: [id number] Order Provider: ABEBA ASH BMI: 33.6 BP: 111/63 Ref Provider: ABEBA ASH - PROCEDURES: Echocardiographic Report: Transthoracic Echocardiogram with 2D, M-Mode, Spectral and Color Flow Doppler examination and administration of intravenous contrast. INDICATIONS: Non ST elevation MS. MEASUREMENTS: 2D/MM Value Range Doppler Value Range [...] By: Rene Nicole MD 09/13/2024 4:49:40 PM PATIENT SERVICE REP Procedure Note Rene Nicole MD - 09/13/[address] [address] ECHOCARDIOGRAM Patient Name: BROOKE MARSHALL R : 1975 (48y 8m) Gender: F Study Date: 09/13/2024 10:28:21 AM Ht(Inch): 65 Wt(Lb): 201.94 BSA: 2.05 Radio Program Checker: MINH Location: [id number] Order Provider: ABEBA ASH BMI: 33.6 BP: 111/63 Ref Provider: ABEBA ASH - PROCEDURES: Echocardiographic Report: Transthoracic Echocardiogram with 2D, M-Mode,Spectral and Color Flow Doppler examination and administration of intravenouscontrast. INDICATIONS: Non ST elevation MS. MEASUREMENTS: 2D/MM Value Range DopplerValue Range IVSd [...] By: Rene Nicole MD 09/13/2024 4:49:40 PM PATIENT SERVICE REP us Abeba Ash MD CV ECHO PROCEDURES Final Res ult * POCT glucose (09/13/2024 11:12 AM PATIENT SERVICE REP) Glucose, POC 149 70 - 199 mg/dL Comment: For Glucose values <35 mg/dl when Hematocrit is >60 mg/dl,the test may not accurately detect significant hypoglycemia,and testing in the Laboratory should be considered if clinically indicated. Blood 09/13/2024 11:1 2 AM PATIENT SERVICE REP 09/13/2024 11:12 AM PATIENT SERVICE REP Flo Villagran MD LAB POCT ORDERABLES - DEVICE Final Result Performing Organization Address [facility] Co de Phone Number [facility] [address] [facility] [place] [address] * (ABNORMAL) DIC Platelet (09/13/2024 9:45 AM PATIENT SERVICE REP) Plt 96(L) 150 - 400 K/cumm Blood 09/13/2024 9:45 AM PATIENT SERVICE REP 09/13/2024 10:14 AM PATIENT SERVICE REP Flo Villagran MD LAB BLOOD ORDERABLES Final R esult Performing Organization Address [facility] de Phone Number [facility] [address] [facility] [place] [address] * (ABNORMAL) DIC Coagulation (09/13/2024 9:45 AM PATIENT SERVICE REP) Pathologist [facility] PT DIC 10.3 10.3 - 13.7 sec INR DIC 0.95 0.90 - 1.20 [facility] PTT DIC 78(H) 28 - 38 sec [facility] Comment: Interpretive Data Heparin therapeutic range: 66.0 - 100.0 seconds. Range based on correlation with therapeutic heparin activity range of 0.3 - 0.7 Units/mL. Current interpretive data was last revised on 2023. D-Dimer 2,217(H) <=499 ng/mL FEU [facility] Comment: Interpretive data FDA approved the D-dimer, [...] 2019. Fibrinogen 620(H) 170 - 400 mg/dL [facility] Blood 09/13/2024 9:45 AM PATIENT SERVICE REP 09/13/2024 10:14 AM PATIENT SERVICE REP Flo Villagran MD LAB BLOOD ORDERABLES Final R esult Performing Organization Address [facility] Co de Phone Number [place] [address] Department [place] [address] * HIT Antibodies with Reflex to Serotonin Release Assay (ASHLEY) (09/13/2024 9:45 AM PATIENT SERVICE REP) HIT antibodies Negative Negative Comment: INTERPRETIVE DATA A result of >/= 1.0 U/mL is interpreted as Heparin/anti-PF4 antibody positive. A result of < 1.0 U/mL is interpreted as Heparin/anti-PF4 antibody negative. Although a positive result may indicate the presence of Heparin-associated antibodies, it does not CONFIRM the diagnosis of Heparin Induced Thrombocytopenia (HIT). Positive specimens will be sent to [facility] ([facility]) for confirmatory testing by Serotonin Release Assay (ASHLEY). Current interpretive data last reviewed 2017 Blood 09/13/2024 9:45 AM PATIENT SERVICE REP 09/13/2024 10:14 AM PATIENT SERVICE REP Flo Villagran MD LAB BLOOD ORDERABLES Final R esult Performing Organization Address [facility] Co de Phone Number [facility] [address] [place] [address] * DIC Schistocytes (09/13/2024 9:45 AM PATIENT SERVICE REP) Schistocytes None Seen None Seen Blood 09/13/2024 9:45 AM PATIENT SERVICE REP 09/13/2024 10:14 AM PATIENT SERVICE REP Flo Villagran MD LAB BLOOD ORDERABLES Final R esult Performing Organization Address [facility]/ZIP Co de Phone Number [facility] [address] Department [place] [address] * (ABNORMAL) Urinalysis reflex to microscopic and culture Urine (09/13/2024 9:45 AM PATIENT SERVICE REP) Color, ur Yellow Yellow Clarity, ur Turbid(A) Clear [facility] Specific gravity, ur 1.020 1.003 - 1.030 [facility] pH, urine 6.0 [facility] Comment: Interpretive Data U rine pH is affected by diet, medications, systemic acid-base disturbances, and renal tubular function. pH may affect urinary stone formation. For example, urine pH below 6.0 may help reduce the tendency for calcium phosphate stones and pH greater than 6.0 may reduce the tendency for uric acid stone formation. Source: [facility] Current Interpretive Data was last revised on 2017 Protein, ur ql 2+(A) Negative [facility] Glucose, ur ql 3+(A) Negative [facility] Ketones, ur Trace Negative [facility] Bilirubin, ur Negative Negative [facility] Blood, ur 1+(A) Negative [facility] Urobilinogen, ur <2.0 <2.0 mg/dL [facility] Nitrite, ur Negative Negative [facility] Leukocyte esterase, ur 4+(A) Negative [facility] UA reflex comment Reflex to microscopic UA will be performed. [facility] Urine 09/13/2024 9:45 AM PATIENT SERVICE REP 09/13/2024 9:45 AM PATIENT SERVICE REP Flo Villagran MD LAB MICROBIOLOGY - GENERAL O RDERABLES Final Result Performing Organization Address [facility]/ZIP Co de Phone Number [facility] [address] Department [place] [address] * (ABNORMAL) Drugs of Abuse Screen, Urine without Confirmation (09/13/2024 9:45 AM PATIENT SERVICE REP) Amphetamine, ur Not Detected CutOff 500ng/mL Comment: Interpretive Data - Amphetamines: Samples containing greater than 500 ng/mL d-methamphetamine or other cross-reacting amphetamine compounds are reported as positive. Amphetamine immunoassays are subject to significant false positive rates due to cross-reactivity of non-amphetamine drugs. Confirmatory testing required for definitive results. Current Interpretive Data was last reviewed 2023. Barbiturates, ur Not Detected CutOff 200ng/mL [facility] Comment: Interpretive Data - Barbiturates: Samples containing greater than 200 ng/mL secobarbital or other cross-reacting barbiturate compounds are reported as positive. False positive and false negative results are possible. Confirmatory testing required for definitive results. Current Interpretive Data was last reviewed 2023. Benzodiazepines, ur Not Detected CutOff 100ng/mL [facility] Comment: Interpretive Data - Benzodiazepines: Samples containing greater than 100 ng/mL nordiazepam or other cross-reacting compounds are reported as positive. False positive and false negative results are possible. Confirmatory testing required for definitive results. Current Interpretive Data was last reviewed 2023. Cannabinoids, ur Not Detected CutOff 50 ng/mL [facility] Comment: Interpretive Data - Cannabinoids: Samples containing greater than 50 ng/mL delta-9 THC -COOH or other cross- reacting compounds are reported as positive. False positive and false negative results are possible. Confirmatory testing required for definitive results. Current Interpretive Data was last reviewed 2023. Cocaine, ur Not Detected CutOff 150ng/mL [facility] Comment: Interpretive Data - Cocaine: Samples containing greater than 150 ng/mL benzoylecgonine or other cross- reacting compounds are reported as positive. False positive and false negative results are possible. Confirmatory testing required for definitive results. Current Interpretive Data was last reviewed 2023. Fentanyl, Ur Screen Positive, presumptive (A) CutOff 5 ng/mL [facility] Comment: Interpretive Data - Fentanyl: Samples containing greater than 5 ng/mL norfentanyl, fentanyl, or other cross-reacting fentanyl compounds are reported as positive. False positive and false negative results are possible. Confirmatory testing required for definitive results. Current Interpretive Data was last reviewed 2023. Methadone, ur Not Detected CutOff 300ng/mL [facility] Comment: Interpretive Data - Methadone: Samples containing greater than 300 ng/mL d,l-methadone or other cross-reacting compounds are reported as positive. False positive and false negative results are possible. Confirmatory testing required for definitive results. Current Interpretive Data was last reviewed 2023. Opiates, ur Screen Positive, presumptive (A) CutOff 300ng/mL [facility] Comment: Interpretive Data - Opiates: Samples containing greater than 300 ng/mL morphine or other cross-reacting compounds are reported as positive. False positive and false negative results are possible. Confirmatory testing required for definitive results. Current Interpretive Data was last reviewed 2023. Oxycodone, ur Not Detected CutOff 100ng/mL [facility] Comment: Interpretive Data - Oxycodone: Samples containing greater than 100 ng/mL oxycodone or other cross-reacting compounds are reported as positive. False positive and false negative results are possible. Confirmatory testing required for definitive results. Current Interpretive Data was last reviewed 2023. Phencyclidine, ur Not Detected CutOff 25 ng/mL [facility] Comment: Interpretive Data - Phencyclidine: Samples containing greater than 25 ng/mL phencyclidine or other cross-reacting compounds are reported as positive. False positive and false negative results are possible. Confirmatory testing required for definitive results. Current Interpretive Data was last reviewed 2023. Urine Creatinine 90 mg/dL [facility] Comment: Interpretive Data Urine Creatinine: < 10 mg/dL is extremely dilute = or > 10 but < 20 mg/dL is dilute = or > 20 mg/dL is normal Current Interpretive Data was last revised on 2017. Urine 09/13/2024 9:45 AM PATIENT SERVICE REP 09/13/2024 10:17 AM PATIENT SERVICE REP Narrative [facility] - 09/13/2024 10:46 AM PATIENT SERVICE REP Drug of Abuse screening is performed by immunoassay for medical purposes only. This is not to be used for Pain Management purposes. us Flo Villagran MD LAB URINE ORDERABLES Final R esult [facility] [address] Department [place] [address] * (ABNORMAL) Urinalysis, microscopic only (09/13/2024 9:45 AM PATIENT SERVICE REP) WBC, ur >50(A) 0 - 5 /HPF RBC, ur >50(A) 0 - 2 /HPF [facility] Epithelial cells, squamous, ur >50(A) 0 - 5 /HPF [facility] Comment:Suggestive of contam ination. Consider recollection by clean catch. Bacteria, ur 4+(A) [facility] Yeast, ur 4+(A) [facility] Mucous, ur Present(A) [facility] Culture Reflex Comment Reflex to urine culture will be performed. [facility] Urine 09/13/2024 9:45 AM PATIENT SERVICE REP 09/13/2024 10:17 AM PATIENT SERVICE REP Flo Villagran MD LAB URINE ORDERABLES Final R esult Performing Organization Address [facility] Co de Phone Number [facility] [address] [employer] [place], [place] [id number] * (ABNORMAL) Urine culture Urine (09/13/2024 9:45 AM PATIENT SERVICE REP) Report Final Report: Greater than or equal to 100,000 colonies/ml of Lactobacillus species Susceptibility not performed on this isolate (.) Organism LACTOBACILLUS SPECIES [facility] Urine 09/13/2024 9:45 AM PATIENT SERVICE REP 09/13/2024 11:49 AM PATIENT SERVICE REP Narrative [facility] - 09/15/2024 12:40 PM PATIENT SERVICE REP Urine culture reflexed based upon urinalysis results. Flo Villagran MD LAB MICROBIOLOGY - GENERAL O RDERABLES Final Result Performing Organization Address [facility]/ZIP Co de Phone Number [facility] [address] [facility] Code for [employer] [place], [place] [id number] * Ammonia (09/13/2024 9:45 AM PATIENT SERVICE REP) Ammonia 14 <=50 mcmol/L Blood 09/13/2024 9:45 AM PATIENT SERVICE REP 09/13/2024 10:14 AM PATIENT SERVICE REP Flo Villagran MD LAB BLOOD ORDERABLES Final R esult Performing Organization Address [facility] de Phone Number [facility] [address] [facility] [place] [address] * POCT glucose (09/13/2024 9:31 AM PATIENT SERVICE REP) Glucose, POC 170 70 - 199 mg/dL Comment: For Glucose values <35 mg/dl when Hematocrit is >60 mg/dl,the test may not accurately detect significant hypoglycemia,and testing in the Laboratory should be considered if clinically indicated. Blood 09/13/2024 9:31 AM PATIENT SERVICE REP 09/13/2024 9:31 AM PATIENT SERVICE REP Abeba Ash MD LAB POCT ORDERABLES - DEVICE Final Result Performing Organization Address [facility] de Phone Number [facility] [address] [facility] [place] [address] * Lipase - Add on lab test (09/13/2024 9:25 AM PATIENT SERVICE REP) Acceptable Yes Blood 09/13/2024 9:25 AM PATIENT SERVICE REP 09/13/2024 9:25 AM PATIENT SERVICE REP Narrative [facility] - 09/13/2024 9:26 AM PATIENT SERVICE REP Name of Test->Lipase Flo Villagran MD LAB BLOOD ORDERABLES Final R esult Performing Organization Address [facility] de Phone Number [facility] [address] [facility] [place] [address] * Amylase - Add on lab test (09/13/2024 9:25 AM PATIENT SERVICE REP) Acceptable Yes Blood 09/13/2024 9:25 AM PATIENT SERVICE REP 09/13/2024 9:25 AM PATIENT SERVICE REP Narrative [facility] - 09/13/2024 9:26 AM PATIENT SERVICE REP Name of Test->Amylase Flo Villagran MD LAB BLOOD ORDERABLES Final R esult [facility] [address] Department [place] [address] * XR Chest 1 Vw (09/13/2024 8:30 AM PATIENT SERVICE REP) Anatomical Region Laterality Modality Body, Chest N/A Computed Radiogr aphy 09/13/2024 9:34 AM PATIENT SERVICE REP Impressions 09/13/2024 9:34 AM PATIENT SERVICE REP Gastric tube tip overlies the gastric body, side port overlies the gastric antrum, possibly kinked at the side port. Patchy left retrocardiac opacities could reflect atelectasis, aspiration, or pneumonia. No pneumothorax or pleural effusion. Heart size and mediastinal contours normal Electronically signed by: Ana Luisa Benson M.D. Narrative 09/13/2024 9:34 AM PATIENT SERVICE REP EXAMINATION: Chest 1 view. HISTORY: Check tube [...] lt * (ABNORMAL) eGFR (09/13/2024 8:11 AM PATIENT SERVICE REP) eGFR 46(L) >=60 mL/min/1. 73 m2 Comment: [...] last reviewed 2021. Blood 09/13/2024 8:11 AM PATIENT SERVICE REP 09/13/2024 8:21 AM PATIENT SERVICE REP Abeba Ahs MD LAB BLOOD ORDERABLES Final R esult Performing Organization Address [facility]/ZIP Co de Phone Number [facility] [address] Department [place] [address] * Beta-hydroxybutyrate (09/13/2024 8:11 AM PATIENT SERVICE REP) Beta-Hydroxybut yrate 0.5 <=0.5 mmol/L Blood 09/13/2024 8:11 AM PATIENT SERVICE REP 09/13/2024 8:16 AM PATIENT SERVICE REP Abeba Ash MD LAB BLOOD ORDERABLES Final [facility] Performing Organization Address [facility]/ZIP Co de Phone Number [facility] [address] [place] [address] * (ABNORMAL) aPTT (09/13/2024 8:11 AM PATIENT SERVICE REP) aPTT 72(H) 28 - 38 sec Comment: Interpretive Data Heparin therapeutic range: 66.0 - 100.0 seconds. Range based on correlation with therapeutic heparin activity range of 0.3 - 0.7 Units/mL. Current interpretive data was last revised on 2023. Blood 09/13/2024 8:11 AM PATIENT SERVICE REP 09/13/2024 8:21 AM PATIENT SERVICE REP Abeba Ash MD LAB BLOOD ORDERABLES Final R esult Performing Organization Address [facility] Co de Phone Number [facility] [address] [facility] [place] [address] * (ABNORMAL) Phosphorus (09/13/2024 8:11 AM PATIENT SERVICE REP) Phosphorus, pl 2.1(L) 2.3 - 4.5 mg/dL Blood 09/13/2024 8:11 AM PATIENT SERVICE REP 09/13/2024 8:16 AM PATIENT SERVICE REP Abeba Ash MD LAB BLOOD ORDERABLES Final R esult Performing Organization Address [facility] Co de Phone Number [facility] [address] [facility] [place] [address] * Magnesium (09/13/2024 8:11 AM PATIENT SERVICE REP) Magnesium 1.9 1.4 - 2.5 mg/dL Blood 09/13/2024 8:11 AM PATIENT SERVICE REP 09/13/2024 8:16 AM PATIENT SERVICE REP Abeba Ash MD LAB BLOOD ORDERABLES Final R esult Performing Organization Address [facility] Co de Phone Number [facility] [address] [place] [address] * Lipase (09/13/2024 8:11 AM PATIENT SERVICE REP) Lipase 25 10 - 99 Units/L Blood 09/13/2024 8:11 AM PATIENT SERVICE REP 09/13/2024 8:21 AM PATIENT SERVICE REP Abeba Ash MD LAB BLOOD ORDERABLES Final R esult Performing Organization Address [facility] Co de Phone Number [facility] [address] Department [place] [address] * Amylase (09/13/2024 8:11 AM PATIENT SERVICE REP) Pathologist [facility] Amylase 48 30 - 99 Units/L Blood 09/13/2024 8:11 AM PATIENT SERVICE REP 09/13/2024 8:21 AM PATIENT SERVICE REP Abeba Ash MD LAB BLOOD ORDERABLES Final R esult [facility] [address] Department [place] [address] * (ABNORMAL) Basic metabolic panel (09/13/2024 8:11 AM PATIENT SERVICE REP) [facility] Sodium 147(H) 135 - 145 mmol/L Potassium, pl 3.7 3.3 - 4.9 mmol/L [facility] Chloride 112(H) 97 - 110 mmol/L [facility] CO2 21(L) 22 - 32 mmol/L [facility] Anion gap 14 2 - 15 mmol/L [facility] BUN 49(H) 6 - 25 mg/dL [facility] Creatinine 1.40(H) 0.60 - 1.10 mg/dL [facility] Glucose 147 70 - 199 mg/dL [facility] Comment: Interpretive Data Fasting glucose >/= 126 [...] 2022. Calcium 8.6 8.5 - 10.3 mg/dL [facility] Blood 09/13/2024 8:11 AM PATIENT SERVICE REP 09/13/2024 8:16 AM PATIENT SERVICE REP us Abeba Ash MD LAB BLOOD ORDERABLES Final R esult Performing Organization Address [facility] Co de Phone Number [facility] [address] [facility] [place] [address] * (ABNORMAL) Blood gas, arterial (09/13/2024 7:58 AM PATIENT SERVICE REP) [facility] pH, Art 7.38 7.35 - 7.45 PCO2, Arterial 39 35 - 45 mmHg [facility] PO2, Arterial 76(L) 83 - 108 mmHg [facility] HCO3 Art (Calculated) 23 20 - 30 mmol/L [facility] BE, art -2 mmol/L [facility] Comment: Interpretive Data No Reference Range Established Current Interpretive Data was last revised on 2017 O2 Sat Art (Calculated) 95 94 - 98 % [facility] Blood 09/13/2024 7:58 AM PATIENT SERVICE REP 09/13/2024 8:02 AM PATIENT SERVICE REP us Flo Villagran MD LAB BLOOD ORDERABLES Final R esult Performing Organization Address [facility] Co de Phone Number [facility] [address] [place] [address] * POCT glucose (09/13/2024 7:54 AM PATIENT SERVICE REP) [facility] Glucose, POC 157 70 - 199 mg/dL Comment: For Glucose values <35 mg/dl when Hematocrit is >60 mg/dl,the test may not accurately detect significant hypoglycemia,and testing in the Laboratory should be considered if clinically indicated. Blood 09/13/2024 7:54 AM PATIENT SERVICE REP 09/13/2024 7:54 AM PATIENT SERVICE REP Abeba Ash MD LAB POCT ORDERABLES - DEVICE Final Result Performing Organization Address [facility] Co de Phone Number [facility] [address] [place] [address] * POCT glucose (09/13/2024 6:04 AM PATIENT SERVICE REP) [facility] Glucose, POC 149 70 - 199 mg/dL Comment: For Glucose values <35 mg/dl when Hematocrit is >60 mg/dl,the test may not accurately detect significant hypoglycemia,and testing in the Laboratory should be considered if clinically indicated. Blood 09/13/2024 6:04 AM PATIENT SERVICE REP 09/13/2024 6:04 AM PATIENT SERVICE REP Abeba Ash MD LAB POCT ORDERABLES - DEVICE Final Result [facility] [address] Department [place] [address] * (ABNORMAL) Blood culture Blood (09/13/2024 5:22 AM PATIENT SERVICE REP) [facility] Direct Specimen Exam Molecular Analysis: Staphylococcus aureus, methicillin-suscep tible (MSSA) detected by the [employer] Blood Culture Identification Panel. This test does not exclude the possibility of a mixed bacterial infection. Please consider this result in the context of clinical findings and evaluate the possibility of antimicrobial de-escalation. Test result called to and read back by Ceferino Grier RN on 09/13/2024 22:28:52 by [email or web address] Direct Specimen Exam Stain: Gram Positive Cocci in clusters [facility] Report Final Report: Staphylococcus aureus, methicillin susceptible (.) [facility] Organism STAPHYLOCOCCUS AUREUS, METHICILLIN SUSCEPTIBLE [facility] Blood 09/13/2024 5:22 AM PATIENT SERVICE REP 09/13/2024 5:48 AM PATIENT SERVICE REP Narrative [facility] - 09/15/2024 7:42 AM PATIENT SERVICE REP From a different site than #1. Collection->Peripheral [...] organism identification may be performed using the [employer] Blood Culture Identification panel. This assay detects microbial DNA in a blood culture broth. This assay has been cleared by the [place] Food and Drug Administration and its performance characteristics have been verified by the [facility]. Interpretive data was last revised on September 11, 2022. Organism Antibiotic Method Susceptibility Staphylococcus aureus, methicillin susceptible Cefazolin (ROBERTO CARLOS) INTERPRETATION Susceptible Staphylococcus aureus, methicillin susceptible Clindamycin (ROBERT OCARLOS) INTERPRETATION Resistant Staphylococcus aureus, methicillin susceptible Erythromycin [...] O RDERABLES Final Result Performing Organization Address [facility]/ZIP Co de Phone Number [facility] [address] [employer] [place], [place] [id number] * POCT glucose (09/13/2024 5:06 AM PATIENT SERVICE REP) Glucose, POC 152 70 - 199 mg/dL Comment: For Glucose values <35 mg/dl when Hematocrit is >60 mg/dl,the test may not accurately detect significant hypoglycemia,and testing in the Laboratory should be considered if clinically indicated. Blood 09/13/2024 5:06 AM PATIENT SERVICE REP 09/13/2024 5:06 AM PATIENT SERVICE REP Result [facility] Abeba Ash MD LAB POCT ORDERABLES - DEVICE Final Result Performing Organization Address [facility]/ZIP Co de Phone Number [facility] [address] [employer] [place] [address] * POCT glucose (09/13/2024 4:05 AM PATIENT SERVICE REP) Glucose, POC 189 70 - 199 mg/dL Comment: For Glucose values <35 mg/dl when Hematocrit is >60 mg/dl,the test may not accurately detect significant hypoglycemia,and testing in the Laboratory should be considered if clinically indicated. Blood 09/13/2024 4:05 AM PATIENT SERVICE REP 09/13/2024 4:05 AM PATIENT SERVICE REP Abeba Ash MD LAB POCT ORDERABLES - DEVICE Final Result [facility] [address] Department [place] [address] * CT Head WO Contrast (09/13/2024 3:40 AM PATIENT SERVICE REP) Anatomical Region Laterality Modality Head and Neck N/A Computed Tomogra phy 09/13/2024 3:31 AM PATIENT SERVICE REP Addenda Addendum by Zion Rodriguez MD on 09/13/2024 7:20 AM PATIENT SERVICE REP The Non Critical results were discussed with Dr. Flo Villagran by Wei Godinez, Consulting Property Manager on 09/13/2024 at 7:16 Edited by: Wei Godinez Electronically signed by: Zion Rodriguez M.D. Impressions 09/13/2024 6:55 AM PATIENT SERVICE REP 1. Small lucency in the right thalamus suspicious for age indeterminate lacunar infarct, new compared to CT 09/22/2021. If there is concern for acute infarct further evaluation can be made with MRI. 2. Otherwise no CT evidence of acute intracranial abnormality. 3. Hyperdense material in the right globe likely intraocular silicone and postoperative in nature. Correlate with history. For the purposes of senior quality control inspector, this study was initially interpreted by teleradiology. There is a non-emergent discrepancy that does not immediately impact patient care. Electronically signed by: Zion Rodriguez M.D. Narrative 09/13/2024 6:55 AM PATIENT SERVICE REP EXAM:CT HEAD WO CONTRAST INDICATION: Right pupil [...] Correlate with history. For the purposes of senior quality control inspector, this study was initially interpreted by teleradiology. There is a non-emergent discrepancy that does not immediately impact patient care. Electronically signed by: Zion Rodriguez M.D. Abeba Ash MD IMG CT PROCEDURES Edited Res ult - Final * (ABNORMAL) POCT glucose (09/13/2024 3:15 AM PATIENT SERVICE REP) Glucose, POC 283(H) 70 - 199 mg/dL Comment: For Glucose values <35 mg/dl when Hematocrit is >60 mg/dl,the test may not accurately detect significant hypoglycemia,and testing in the Laboratory should be considered if clinically indicated. Blood 09/13/2024 3:15 AM PATIENT SERVICE REP 09/13/2024 3:15 AM PATIENT SERVICE REP Abeba Ash MD LAB POCT ORDERABLES - DEVICE Final Result Performing Organization Address [facility] Co de Phone Number [facility] [address] [place] [address] * (ABNORMAL) Urinalysis reflex to microscopic and culture Urine (09/13/2024 2:59 AM PATIENT SERVICE REP) Color, ur Yellow Yellow Clarity, ur Turbid(A) Clear [facility] Specific gravity, ur 1.016 1.003 - 1.030 [facility] pH, urine 5.5 [facility] Comment: Interpretive Data U rine pH is affected by diet, medications, systemic acid-base disturbances, and renal tubular function. pH may affect urinary stone formation. For example, urine pH below 6.0 may help reduce the tendency for calcium phosphate stones and pH greater than 6.0 may reduce the tendency for uric acid stone formation. Source: [facility] Current Interpretive Data was last revised on 2017 Protein, ur ql 1+(A) Negative [facility] Glucose, ur ql 4+(A) Negative [facility] Ketones, ur 2+(A) Negative [facility] Bilirubin, ur Negative Negative [facility] Blood, ur Trace(A) Negative [facility] Urobilinogen, ur <2.0 <2.0 mg/dL [facility] Nitrite, ur Negative Negative [facility] Leukocyte esterase, ur 4+(A) Negative [facility] UA reflex comment Reflex to microscopic UA will be performed. [facility] Urine 09/13/2024 2:59 AM PATIENT SERVICE REP 09/13/2024 3:04 AM PATIENT SERVICE REP Abeba Ash MD LAB MICROBIOLOGY - GENERAL O RDERABLES Final Result Performing Organization Address [facility] Co de Phone Number [facility] [address] Department [place] [address] * (ABNORMAL) Urinalysis, microscopic only (09/13/2024 2:59 AM PATIENT SERVICE REP) WBC, ur 21-50(A) 0 - 5 /HPF RBC, ur >50(A) 0 - 2 /HPF [facility] Epithelial cells, squamous, ur 6-10(A) 0 - 5 /HPF [facility] Comment:Suggestive of contam ination. Consider recollection by clean catch. Bacteria, ur 4+(A) [facility] Culture Reflex Comment Reflex to urine culture will be performed. [facility] Urine 09/13/2024 2:59 AM PATIENT SERVICE REP 09/13/2024 3:32 PM PATIENT SERVICE REP Abeba Ash MD LAB URINE ORDERABLES Final R esult Performing Organization Address [facility] Co de Phone Number [facility] [address] [place] [address] * (ABNORMAL) Urine culture Urine (09/13/2024 2:59 AM PATIENT SERVICE REP) Report Final Report: Greater than or equal to 100,000 colonies/ml of Lactobacillus species Susceptibility not performed on this isolate (.) Organism LACTOBACILLUS SPECIES [facility] Urine 09/13/2024 2:59 AM PATIENT SERVICE REP 09/13/2024 3:41 PM PATIENT SERVICE REP Narrative [facility] - 09/14/2024 12:08 PM PATIENT SERVICE REP Urine culture reflexed based upon urinalysis results. Abeba Ash MD LAB MICROBIOLOGY - GENERAL O RDERABLES Final Result Performing Organization Address [facility]/ZIP Co de Phone Number [facility] [address] [employer] [place], [place] [id number] * (ABNORMAL) POCT glucose (09/13/2024 2:03 AM PATIENT SERVICE REP) Glucose, POC 260(H) 70 - 199 mg/dL Comment: For Glucose values <35 mg/dl when Hematocrit is >60 mg/dl,the test may not accurately detect significant hypoglycemia,and testing in the Laboratory should be considered if clinically indicated. Blood 09/13/2024 2:03 AM PATIENT SERVICE REP 09/13/2024 2:03 AM PATIENT SERVICE REP Abeba Ash MD LAB POCT ORDERABLES - DEVICE Final Result Performing Organization Address [facility] Co de Phone Number [facility] [address] Department [place] [address] * ECG 12 lead (09/13/2024 1:58 AM PATIENT SERVICE REP) 09/13/2024 1:58 AM PATIENT SERVICE REP Narrative [facility] - 09/13/2024 9:32 PM PATIENT SERVICE REP Vent Rate: 134 bpm RR Interval: 445 msec MI Interval: 118 msec QRS Duration: 87 msec QT Interval: 331 msec QTC Interval: 410 msec P-R-T [place]: 66 - -15 - 124 degrees IMPRESSION: SINUS TACHYCARDIA WITH SHORT MI INTERVAL ST DEVIATION AND MODERATE T-WAVE ABNORMALITY, CONSIDER LATERAL ISCHEMIA ABNORMAL ECG Electronically Signed By: Rene Nicole MD Abeba Ash MD ECG ORDERABLES Final Result Performing Organization Address [facility] Co de Phone Number [facility] [place] and Stag [facility] * (ABNORMAL) Respiratory pathogen panel Nasopharyngeal (09/13/2024 1:50 AM PATIENT SERVICE REP) Pathologist [facility] Influenza A/2009 RNA Detected(A) Not Detected [facility] Influenza B RNA Not Detected Not Detected [facility] RSV RNA Not Detected Not Detected [facility] COVID-19 RNA Not Detected Not Detected [facility] Coronavirus 229E RNA Not Detected Not Detected [facility] Coronavirus HKU1 RNA Not Detected Not Detected [facility] Coronavirus NL63 RNA Not Detected Not Detected [facility] Coronavirus OC43 RNA Not Detected Not Detected [facility] Adenovirus DNA Not Detected Not Detected [facility] Metapneumovirus RNA Not Detected Not Detected [facility] Rhinovirus/Enterov irus RNA Not Detected Not Detected [facility] Parainfluenza 1 RNA Not Detected Not Detected [facility] Parainfluenza 2 RNA Not Detected Not Detected [facility] Parainfluenza 3 RNA Not Detected Not Detected [facility] Parainfluenza 4 RNA Not Detected Not Detected [facility] B. pertussis DNA Not Detected Not Detected [facility] B. parapertussis DNA Not Detected Not Detected [facility] C. pneumoniae DNA Not Detected Not Detected [facility] M. pneumoniae DNA Not Detected Not Detected [facility] Comment: Interpretive Data The [employer] FilmArray Respiratory Panel (RP2.1) assay is a [...] assay has FDA clearance for testing of RETAIL BANKING MANAGER swabs. The performance characteristics of this assay have been determined by [facility]. Current interpretive data was last revised on 2021. Nasopharyngeal 09/13/2024 1: 50 AM PATIENT SERVICE REP 09/13/2024 2:04 AM PATIENT SERVICE REP Narrative [facility] - 09/13/2024 2:57 AM PATIENT SERVICE REP Is the Patient experiencing symptoms consistent with COVID?->Yes Surveillance testing for transplant patient?->No Abeba Ash MD LAB MICROBIOLOGY - GENERAL O RDERABLES Final Result [facility] [address] Department [place] [address] [facility] * (ABNORMAL) Blood culture Blood (09/13/2024 1:50 AM PATIENT SERVICE REP) Direct Specimen Exam Stain: Gram Positive Cocci in clusters Test result called to and read back by Sandra Joiner RN on 09/14/2024 12:27:01 by PDC. Report Final Report: Staphylococcus aureus, methicillin susceptible Susceptibility reported on this organism on previous culture [id number] (.) [facility] Organism STAPHYLOCOCCUS AUREUS, METHICILLIN SUSCEPTIBLE [facility] Blood 09/13/2024 1:50 AM PATIENT SERVICE REP 09/13/2024 2:17 AM PATIENT SERVICE REP Narrative [facility] - 09/15/2024 10:49 AM PATIENT SERVICE REP Collection->Peripheral Interpretive Data 1. Blood cultures are incubated and monitored continuously for 5 days (120 hours). The first negative report is issued within 24 hours of receipt in the laboratory. 2. All positive cultures are resulted and called to physicians/care providers as soon as they are detected. 3. A rapid molecular test for organism identification may be performed using the [employer] Blood Culture Identification panel. This assay detects microbial DNA in a blood culture broth. This assay has been cleared by the [place] Food and Drug Administration and its performance characteristics have been verified by the [facility]. Interpretive data was last revised on September 11, 2022. us Abeba Ash MD LAB MICROBIOLOGY - GENERAL O RDERABLES Final Result Performing Organization Address [facility] de Phone Number [facility] [address] [place] [address] * (ABNORMAL) Troponin T high-sensitivity (09/13/2024 1:46 AM PATIENT SERVICE REP) Pathologist [facility] Trop T hs 116(H) <=14 ng/L Comment: Interpretive Data For further hscTnT resources including the diagnostic algorithm and an aid in interpretation, copy and paste this link: https://nrl.testcatalog.org/show/hsTrop Current Interpretive Data last revised 2020. Blood 09/13/2024 1:46 AM PATIENT SERVICE REP 09/13/2024 1:53 AM PATIENT SERVICE REP us Abeba Ash MD LAB BLOOD ORDERABLES Final R esult Performing Organization Address [facility] Co de Phone Number [facility] [address] [place] [address] * (ABNORMAL) Lactate (09/13/2024 1:46 AM PATIENT SERVICE REP) [facility] Lactate 2.6(H) 0.7 - 2.0 mmol/L Blood 09/13/2024 1:46 AM PATIENT SERVICE REP 09/13/2024 1:51 AM PATIENT SERVICE REP Abeba Ash MD LAB BLOOD ORDERABLES Final R esult Performing Organization Address [facility] de Phone Number [facility] [address] Department [place], [place] [id number] * (ABNORMAL) eGFR (09/13/2024 1:46 AM PATIENT SERVICE REP) [facility] eGFR 44(L) >=60 mL/min/1. 73 m2 Comment: [...] last reviewed 2021. Blood 09/13/2024 1:46 AM PATIENT SERVICE REP 09/13/2024 1:53 AM PATIENT SERVICE REP us Abeba Ash MD LAB BLOOD ORDERABLES Final R esult [facility] [address] Department [place] [address] * (ABNORMAL) Differential, auto (09/13/2024 1:46 AM PATIENT SERVICE REP) Neutrophil abs 6.6(H) 1.5 - 6.5 K/cumm Imm gran abs 0.0 0.0 - 0.1 K/cumm [facility] Lymphocyte abs 0.5(L) 0.8 - 3.3 K/cumm [facility] Monocyte abs 0.7 0.2 - 0.8 K/cumm [facility] Eosinophil abs 0.0 0.0 - 0.5 K/cumm [facility] Basophil abs 0.0 0.0 - 0.1 K/cumm [facility] Neutrophil pct 84.7 % [facility] Comment: Interpretive Data Percent cell count reference ranges are not reported, since discordance with absolute values may lead to misinterpretation of CBC data. Current Interpretive Data was last revised on 2017. Imm gran pct 0.5 % [facility] Comment: Interpretive Data Percent cell count reference ranges are not reported, since discordance with absolute values may lead to misinterpretation of CBC data. Current Interpretive Data was last revised on 2017. Lymphocyte pct 5.8 % [facility] Comment: Interpretive Data Percent cell count reference ranges are not reported, since discordance with absolute values may lead to misinterpretation of CBC data. Current Interpretive Data was last revised on 2017. Monocyte pct 8.9 % [facility] Comment: Interpretive Data Percent cell count reference ranges are not reported, since discordance with absolute values may lead to misinterpretation of CBC data. Current Interpretive Data was last revised on 2017. Eosinophil pct 0.0 % [facility] Comment: Interpretive Data Percent cell count reference ranges are not reported, since discordance with absolute values may lead to misinterpretation of CBC data. Current Interpretive Data was last revised on 2017. Basophil pct 0.1 % [facility] Comment: Interpretive Data Percent cell count reference ranges are not reported, since discordance with absolute values may lead to misinterpretation of CBC data. Current Interpretive Data was last revised on 2017. Blood 09/13/2024 1:46 AM PATIENT SERVICE REP 09/13/2024 1:53 AM PATIENT SERVICE REP us Abeba Ash MD LAB BLOOD ORDERABLES Final R esult [facility] [address] Department [place] [address] * (ABNORMAL) Pro B-type natriuretic peptide (09/13/2024 1:46 AM PATIENT SERVICE REP) NT-proBNP 6,745(H) <=300 pg/mL Comment: Interpretive Comments: [...] Revised Date: 2018. Blood 09/13/2024 1:46 AM PATIENT SERVICE REP 09/13/2024 1:53 AM PATIENT SERVICE REP us Abeba Ash MD LAB BLOOD ORDERABLES Final R esult [facility] [address] Department [place] [address] * (ABNORMAL) CBC with auto differential (09/13/2024 1:46 AM PATIENT SERVICE REP) WBC 7.7 3.8 - 9.9 K/cumm Hgb 11.9 11.9 - 15.5 g/dL [facility] Hct 39.4 35.6 - 45.5 % [facility] Plt 111(L) 150 - 400 K/cumm [facility] MPV 12.8(H) 9.1 - 12.3 fL [facility] RBC 4.15 3.90 - 5.20 M/cumm [facility] MCV 94.9 81.3 - 96.4 fL [facility] MCH 28.7 27.1 - 33.3 pg [facility] MCHC 30.2(L) 32.3 - 35.7 g/dL [facility] RDW CV 14.6 11.1 - 14.9 % [facility] RDW SD 50.7(H) 35.7 - 48.1 fL [facility] NRBC abs 0.00 0.00 - 0.01 K/cumm [facility] Blood 09/13/2024 1:46 AM PATIENT SERVICE REP 09/13/2024 1:53 AM PATIENT SERVICE REP Abeba Ash MD LAB BLOOD ORDERABLES Final R [facility] Performing Organization Address [facility] Co de Phone Number [facility] [address] Department [place] [address] * (ABNORMAL) aPTT (09/13/2024 1:46 AM PATIENT SERVICE REP) aPTT 25(L) 28 - 38 sec Comment: Interpretive Data Heparin therapeutic range: 66.0 - 100.0 seconds. Range based on correlation with therapeutic heparin activity range of 0.3 - 0.7 Units/mL. Current interpretive data was last revised on 2023. Blood 09/13/2024 1:46 AM PATIENT SERVICE REP 09/13/2024 1:53 AM PATIENT SERVICE REP Abeba Ash MD LAB BLOOD ORDERABLES Final R [facility] Performing Organization Address [facility] de Phone Number [facility] [address] [facility] [place] [address] * Protime-INR (09/13/2024 1:46 AM PATIENT SERVICE REP) PT 10.0 9.7 - 13.0 sec INR 0.93 0.90 - 1.20 [facility] Comment: Interpretive data Oral anticoagulant therapeutic ranges: Venous thromboembolism prophylaxis or treatment: 2.0-3.0 CARDIOLOGY Standard range: 2.0-3.0 High-intensity range: 2.5-3.5 Refer to indication-specific guidelines for appropriate target ranges for prosthetic heart valve replacement. Current interpretive data was last revised on 2019. Blood 09/13/2024 1:46 AM PATIENT SERVICE REP 09/13/2024 1:53 AM PATIENT SERVICE REP Abeba Ash MD LAB BLOOD ORDERABLES Final R esult Performing Organization Address [facility] Co de Phone Number [facility] [address] [facility] [place] [address] * Type and screen (09/13/2024 1:46 AM PATIENT SERVICE REP) ABO Rh A Positive Charles, indirect Negative [facility] Blood 09/13/2024 1:46 AM PATIENT SERVICE REP 09/13/2024 1:51 AM PATIENT SERVICE REP Narrative [facility] - 09/13/2024 2:31 AM PATIENT SERVICE REP Has the patient had Daratumumab or Isatuximab in the past 6 months?->Unknown Abeba Ash MD LAB BLOOD BANK TEST ORDERABL ES Final Result Performing Organization Address [facility] Co de Phone Number [facility] [address] Department [place] [address] * Phosphorus (09/13/2024 1:46 AM PATIENT SERVICE REP) Phosphorus, pl 2.7 2.3 - 4.5 mg/dL Blood 09/13/2024 1:46 AM PATIENT SERVICE REP 09/13/2024 1:53 AM PATIENT SERVICE REP Abeba Ash MD LAB BLOOD ORDERABLES Final R esult Performing Organization Address [facility] Co de Phone Number [facility] [address] [place] [address] * Magnesium (09/13/2024 1:46 AM PATIENT SERVICE REP) Magnesium 2.1 1.4 - 2.5 mg/dL Blood 09/13/2024 1:46 AM PATIENT SERVICE REP 09/13/2024 1:53 AM PATIENT SERVICE REP Abeba Ash MD LAB BLOOD ORDERABLES Final R esult Performing Organization Address [facility] de Phone Number [facility] [address] Department [place] [address] * (ABNORMAL) Hemoglobin A1c (09/13/2024 1:46 AM PATIENT SERVICE REP) [facility] Hgb A1C 9.1(H) 4.0 - 5.6 % Estimated Average Glucose 214 mg/dL [facility] Comment: The ADA recommends reporting an estimated Average Glucose (eAG) with all Hemoglobin A1c results using the equation derived from a study of 507 normal and diabetic adults. Minority populations were underrepresented and children were not included. (Diabetes Care 31:9928-7402, 2008). The eAG is not equivalent to a fasting glucose. Blood 09/13/2024 1:46 AM PATIENT SERVICE REP 09/13/2024 1:53 AM PATIENT SERVICE REP Abeba Ash MD LAB BLOOD ORDERABLES Final R esult Performing Organization Address [facility] de Phone Number [facility] [address] [place] Department [place] [address] * (ABNORMAL) Comprehensive metabolic panel (09/13/2024 1:46 AM PATIENT SERVICE REP) [facility] Sodium 151(H) 135 - 145 mmol/L Potassium, pl 4.0 3.3 - 4.9 mmol/L [facility] Chloride 110 97 - 110 mmol/L [facility] CO2 20(L) 22 - 32 mmol/L [facility] Anion gap 21(H) 2 - 15 mmol/L [facility] BUN 47(H) 6 - 25 mg/dL [facility] Creatinine 1.47(H) 0.60 - 1.10 mg/dL [facility] Glucose 264(H) 70 - 199 mg/dL [facility] Comment: Interpretive Data Fasting glucose >/= 126 [...] 2022. Calcium 9.2 8.5 - 10.3 mg/dL [facility] Bilirubin, total 0.3 0.1 - 1.2 mg/dL [facility] Protein, pl 7.0 6.5 - 8.5 g/dL [facility] Albumin 3.4(L) 3.5 - 5.0 g/dL [facility] Alk phos 202(H) 40 - 130 Units/L [facility] ALT 48(H) 7 - 45 Units/L [facility] AST 45 10 - 45 Units/L [facility] Blood 09/13/2024 1:46 AM PATIENT SERVICE REP 09/13/2024 1:53 AM PATIENT SERVICE REP us Abeba Ash MD LAB BLOOD ORDERABLES Final R esult Performing Organization Address City/[facility]/ZIP Co de Phone Number [facility] [address] [employer] [place], [place] [id number] * (ABNORMAL) POCT glucose (09/13/2024 1:30 AM PATIENT SERVICE REP) [facility] Glucose, POC 248(H) 70 - 199 mg/dL Comment: For Glucose values <35 mg/dl when Hematocrit is >60 mg/dl,the test may not accurately detect significant hypoglycemia,and testing in the Laboratory should be considered if clinically indicated. Blood 09/13/2024 1:30 AM PATIENT SERVICE REP 09/13/2024 1:30 AM PATIENT SERVICE REP us Abeba Ash MD LAB POCT ORDERABLES - DEVICE Final Result Performing Organization Address City/[facility]/ZIP Co de Phone Number [facility] [address] [place] [address] * COLONOSCOPY REPORT (06/07/2014) Anatomical Region Laterality Modality Other Narrative 06/07/2014 Ordered by an unspecified provider. Historical Provider MD PRAJAPATI PROCEDURE ORDERABLES F inal Result from Last 3 Months or Most Recently Relevant to Health Maintenance Insurance [facility] MEDICARE ADVANTAGE [facility] MEDIC[facility] Address: [address] [address] [place] [address] [facility] MEDICARE ADVANTAGE [facility] MEDICARE Address: [address] [address] [place] [address] IDPA IDPA [facility] MEDICARE ADVANTAGE [facility] MEDICARE Address: [address] [address] [place] [address] MEDICARE Advance Directives For more information, please contact: [phone] Documents on File Type Date Recorded Patient Lead Network Architect Expl anation ADVANCE DIRECTIVE 11/10/2024 2:31 PM [...] MILLAN Daughter in Law Health Care Agent [phone] (Mobile ) Care Teams Residential Program Worker Relationship Specialty Start Date End Date Donte Lucas PA [address] [place] [address] PCP - General Physician Certified Nursing Assistant 08/26/24
--- OUTSIDE RECORDS SUMMARY | 2024-12-08 16:10 | XMS_ITS | Encounter Summary ---
Author Organization [employer] Address [address] [place] [address] Care Team Providers Care Spinning Bath Person Name Role Phone Arnoldo [place] MD Primary Care Provider [phone] Encounter Details Date Type Department Care Team (Late st Contact Info) Description 01/25/2002 Inpatient Historical HIS INPATIENT IN BED Palak hSah MD [address] [place] [address] Say Patricio MD [address] [facility] [address] [place] [address] POISONING-ANTITUSSI VES (Primary Dx) Social History Tobacco Use Types Packs/Day Years Used Date Smoking Tobacco: Never Assessed Comments Unknown Sex and Gender Information Value Date Recorded Sex Assigned at Not on file Legal Sex Female 3:51 AM WELL TESTER Gender Identity Not on file Sexual Orientation [...] documented as of this encounter Care Teams Spinning Bath Person Relationship Specialty Start Date End Date Arnoldo [place] MD [address] [place] [address] PCP - General Internal Medicine 03/27/21 documented as of this encounter
--- OUTSIDE RECORDS SUMMARY | 2024-12-08 16:10 | XMS_ITS | Patient Health Record ---
Author Organization [facility], [place] Address [address] 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
--- OUTSIDE RECORDS SUMMARY | 2024-12-08 16:10 | XMS_ITS | Clinical Summary ---
Author Organization [facility] Address [address] [place] [address] Phone Care Team Providers Care Tire Repairman Name Role Phone Donte Lucas [facility] Primary Care Provider [phone] Allergies Active Allergy Reactions Criticality Noted Date Comments Cephalexin Rash 10/06/2024 Codeine Itching 10/06/2024 Erythromycin Vomiting 10/06/2024 Phyllantus Niruri Swelling 10/06/2024 Medications HYDROcodone-acet aminophen (NORCO) 10-325 MG Tablet Take 1 Tablet by mouth every 6 hours as needed for Mild or more severe pain. Active OMEPRAZOLE PO Take 40 mg by [...] needed for Constipation - 1st line. Active celecoxib (CeleBREX) 200 MG Capsule Take 200 mg by mouth 2 times daily. Active atorvastatin (LIPITOR) 80 MG Tablet Take 80 mg by mouth daily. Active insulin lispro (HumaLOG) 100 UNIT/ML Solution 8 Units by Subcutaneous route 3 times daily (before meals). Active Insulin Glargine (TOUJEO SOLOSTAR SC) 50 [...] by Nebulization route every 4 hours. Active pantoprazole (Protonix) 40 MG Tablet Delayed Response Take 40 mg by mouth daily. [id number] Active midodrine (PROAMATINE) 2.5 MG Tablet Take 2.5 mg by mouth 3 times daily. [id number] Active Fluticasone Furoate 50 MCG/ACT AEROSOL POWDER, BREATH ACTIVATED 1 [place] by Nasal route daily. Discontinu ed(Discont inued by another clinician) Aspirin 81 MG Capsule Take 1 Tablet by mouth daily. Discontinu ed(Discont inued by another clinician) Insulin Detemir (LEVEMIR SC) 46 Units by Subcutaneous route nightly. Discontinu ed(Discont inued by another clinician) becaplermin (Regranex) 0.01 % Gel Apply 15 Doses every morning. 025 Discontinu ed(Discont inued by another clinician) Encounters Date Type Department Care Team Description 12/08/2024 10:00 AM CDT Home Care Visit [address] [address] Brooke Burt OTA OT - HOME VISIT 12/08/2024 Home Care Visit [address] [address] Brooke Burt OTA TELEPHONE ENCOUNTER 12/07/2024 11:00 AM CDT Home Care Visit [address] [address] Mai Bass, RN SN - HOME VISIT 12/06/2024 12:00 PM CDT Home Care Visit [address] [address] Maggie Murguia, PT PT - INITIAL EVALUATION 12/06/2024 12:00 PM CDT Home Care Visit [address] [address] Kathrin Mcmullen OT OT - INITIAL EVALUATION 12/04/2024 Plan of Care Documentation [address] [address] 12/02/2024 11:00 AM CDT Home Care Visit [address] [address] Brooke Burt OTA OT - HOME VISIT 12/02/2024 9:00 AM CDT Home Care Visit [address] [address] Mai Bass, RN SN - OASIS RECERTIFICATION 11/30/2024 12:00 PM CDT Home Care Visit [address] [address] Elisa Pollack, CHIEF INFORMATION SECURITY OFFICER PT - HOME VISIT 11/30/2024 11:00 AM CDT Home Care Visit [address] [address] Brooke Burt, MELANIE OT - HOME VISIT 11/29/2024 12:00 PM CDT Home Care Visit [address] [address] Elisa Plolack, CHIEF INFORMATION SECURITY OFFICER PT - HOME VISIT 11/29/2024 12:00 PM CDT Home Care Visit [address] [address] Mai Bass, RN SN - PRIORITY VISIT 11/29/2024 Travel 11/25/2024 10:30 AM CDT Home Care Visit [address] [address] Brooke Burt, CINDER SNAPPER OT - HOME VISIT 11/23/2024 2:30 PM CDT Home Care Visit [address] [address] Mai Bass, RN SN - PRIORITY VISIT 11/23/2024 11:00 AM CDT Home Care Visit [address] [address] Elisa Pollack, CHIEF INFORMATION SECURITY OFFICER PT - HOME VISIT 11/22/2024 12:00 PM CDT Home Care Visit [address] [address] Brooke Burt, CINDER SNAPPER OT - HOME VISIT 11/21/2024 1:30 PM CDT Home Care Visit [address] [address] Mai Bass, RN SN - PRIORITY VISIT 11/21/2024 1:00 PM CDT Home Care Visit [address] [address] Elisa Pollack, CHIEF INFORMATION SECURITY OFFICER PT - HOME VISIT 11/21/2024 Travel 11/17/2024 11:15 AM CDT Home Care Visit [address] [address] Kathrin Mcmullen OT OT - INITIAL EVALUATION 11/16/2024 1:00 PM CDT Home Care Visit [address] [address] Elisa Pollack, CHIEF INFORMATION SECURITY OFFICER PT - HOME VISIT 11/14/2024 11:00 AM CDT Home Care Visit [address] [address] Maggie Murguia, PT PT - INITIAL EVALUATION 11/14/2024 9:00 AM CDT Home Care Visit [address] [address] Mai Bass, RN SN - PRIORITY VISIT 11/11/2024 9:00 AM CDT Home Care Visit [address] [address] Mai Bass, RN SN - OASIS RESUMPTION OF CARE Discharge Disposition: Discharged to home or Selfcare 11/11/2024 Plan of Care Documentation [address] [address] 11/08/[address] [address] Urszula Sparks RN HOME HEALTH 11/03/2024 Home Care Visit [address] [address] Nancy Bradley RN SN - OASIS TRANSFER W/OUT DC 10/28/2024 9:30 AM CDT Home Care Visit [address] [address] Mai Bass, RN SN - PRIORITY VISIT 10/27/2024 10:00 AM CDT Home Care Visit [address] [address] Elisa Pollack, CHIEF INFORMATION SECURITY OFFICER PT - HOME VISIT 10/25/2024 2:30 PM CDT Home Care Visit [address] [address] Deepika Ely, FAMILY AND CONSUMER SCIENCES TEACHER-SPEECH LANGUAGE PATHOLOGIST FAMILY AND CONSUMER SCIENCES TEACHER - INITIAL EVALUATION 10/25/2024 1:30 PM CDT Home Care Visit [address] [address] Maggie Murguia, PT PT - INITIAL EVALUATION 10/25/2024 12:30 PM CDT [place] [id number] Kathrin Mcmullen, OT OT - INITIAL EVALUATION 10/24/2024 2:00 AM [place] [address] Mai Bass, RN SN - OASIS RESUMPTION OF CARE 10/24/2024 Plan of Care Documentation [address] [address] 10/24/2024 [place] [address] Kami Mccoy, RN 10/23/2024 [place] [address] Deepika Keith, RN Appointment 10/21/2024 [place] [address] Ariana Callahan, RN visits 10/19/2024 Home Care [place] [phone] Mehnaz Hilario, RN SN - OASIS TRANSFER W/OUT DC 10/14/2024 11:00 AM REVENUE COLLECTOR Home Care Visit [address] [address] Brooke Burt, MELANIE OT - HOME VISIT 10/14/2024 11:00 AM REVENUE COLLECTOR Home Care Visit [address] [address] Kathleen Clement, CHIEF INFORMATION SECURITY OFFICER PT - HOME VISIT 10/13/2024 1:30 PM REVENUE COLLECTOR Home Care Visit [address] [address] Mai Bass, RN SN - PRIORITY VISIT 10/13/2024 10:00 AM REVENUE COLLECTOR Home Care Visit [address] [address] Mercedes Pham, SLIVER LAP MACHINE TENDER SLIVER LAP MACHINE TENDER - INITIAL EVALUATION 10/12/2024 12:30 PM REVENUE COLLECTOR Home Care Visit [address] [address] Saima Busby, CHIEF INFORMATION SECURITY OFFICER PT - HOME VISIT 10/11/2024 11:45 AM REVENUE COLLECTOR Home Care Visit [address] [address] Kathrin Mcmullen OT OT - INITIAL EVALUATION 10/11/2024 8:00 AM REVENUE COLLECTOR Home Care Visit [address] [address] Mai Bass, RN SN - PRIORITY VISIT 10/11/2024 Home Care Visit [address] [address] Mai Bass, RN TELEPHONE ENCOUNTER 10/11/2024 Home Care Visit [address] [address] Mai Bass, RN TELEPHONE ENCOUNTER 10/07/2024 2:00 PM REVENUE COLLECTOR Home Care Visit [address] [address] Maggie Murguia, PT PT - INITIAL EVALUATION 10/06/2024 10:00 AM REVENUE COLLECTOR Home Care Visit [address] [address] Mai Bass, RN SN - OASIS START OF CARE 10/06/2024 Plan of Care Documentation [address] [address] 09/12/2024 Travel from Last 3 Months Social History Tobacco Use Types Packs/Day Years Used Date Smoking Tobacco: Never Assessed Comments Unknown Sex and Gender Information Value Date Recorded Sex Assigned at Not on file Legal Sex Female 1:58 PM REVENUE COLLECTOR Gender Identity Not on file Sexual Orientation [...] 4 oz) 12/08/2024 10:38 AM CDT Height 165.1 cm (5' 5 ) 12/06/2024 12:17 PM CDT Body Mass Index 33.82 12/06/2024 12:17 PM CDT Plan of Treatment Upcoming Encounters Date Type Department Care Team (Late st Contact Info) Description 12/09/2024 2:00 PM CDT Home Care Visit [address] [address] Elisa Pollack, CHIEF INFORMATION SECURITY OFFICER [place] 12/13/2024 1:00 AM CDT Home Care Visit [address] [address] Mai Bass RN [place] 12/13/2024 2:00 AM CDT Home Care Visit [address] [address] Elisa Pollack, CHIEF INFORMATION SECURITY OFFICER [place] 12/13/2024 8:00 AM CDT Home Care Visit [address] [address] Brooke Burt OTA [place] 12/15/2024 1:00 AM CDT Home Care Visit [address] [address] Elisa Pollack, CHIEF INFORMATION SECURITY OFFICER [place] 12/15/2024 2:00 AM CD[facility] [address] [place] [address] Brooke Burt, CINDER SNAPPER [place] 12/19/2024 1:00 AM CDT Home Care Visit [address] [address] Elisa Pollack, CHIEF INFORMATION SECURITY OFFICER [place] 12/20/2024 1:00 AM CDT Home Care Visit [address] [address] Mai Bass, RN [place] 12/20/2024 2:00 AM CDT Home Care Visit [address] [address] Brooke Burt, [place]ELANIE [place] 12/21/2024 1:00 AM CDT Home Care Visit [address] [address] Elisa Pollack, CHIEF INFORMATION SECURITY OFFICER [place] 12/22/2024 1:00 AM CDT Home Care Visit [address] [address] Brooke Burt, [place]ANIE [place] 12/26/2024 1:00 AM CDT Home Care Visit [address] [address] Maggie Murguia, PT 12/27/2024 1:00 AM CDT Home Care Visit [address] [address] Mai Bass, RN [place] 12/27/2024 2:00 AM CDT [facility] [address] [place] [address] Brooke Burt, MELANIE [place] 12/28/2024 1:00 AM CDT Home Care Visit [address] [address] Elisa Pollack, CHIEF INFORMATION SECURITY OFFICER [place] 12/29/2024 1:00 AM CDT Home Care Visit [address] [address] Kathrin Mcmullen OT 01/03/2025 1:00 AM CDT [facility] [address] [place] [address] Mai Bass, [place] 01/10/2025 1:00 AM CDT [facility] [address] [place] [address] Mai Bass, [place] 01/17/2025 1:00 AM CDT [facility] [address] [place] [address] Mai Bass, [place] 01/24/2025 1:00 AM CDT Home Care Visit [address] [address] Mai Bass RN [place] 01/31/2025 1:00 AM CDT Appointment [address] [address] Mai Bass, [place] Insurance [place] MEDICARE C [employer] Advance Directives * Full Code (Latest Code Status on File) Date Activated Date Inactivated Comments 10/06/2024 10:06 PM Care Teams Tire Repairman Relationship Specialty Start Date End Date Donte Lucas PAC [address] [place] [id number] PCP - General Physician Electronics Commodity Manager 10/01/24
--- OUTSIDE RECORDS SUMMARY | 2024-12-08 16:10 | XMS_ITS | Encounter Summary ---
Author Organization [facility] Address [address] [place] [address] Care Team Providers Care Block Sorter Name Role Phone Rose Conn MD Unavailable Keith Goodwin MD Unavailable Ace Honeycutt MD Primary Care Provider [phone] Encounter Details Date Type Department Care Team (Late st Contact Info) Description 10/24/2024 Hospital Follow-up Call [facility] [address] [place] [address] Florinda Shanks RN Social History Tobacco Use Types Packs/Day Years Used Date Smoking Tobacco: Every Day Cigarettes Smokeless Tobacco: Never Alcohol Use Standard Drinks/Week Comments Never 0 (1 standard drink = 0.6 oz pur e alcohol) [facility] Utilities Answer Date Recorded In the past 12 months has [facility] [employer], gas, oil, or water [employer] threatened to shut off services in your [...] any time in the past 12 m [facility], were you homeless or living in a longterm (including now)? No 10/15/2024 Comments No Sex and Gender Information Value Date Recorded Sex Assigned at Female 08/31/2024 8:28 AM MANAGING DIRECTOR Legal Sex Female 8:37 PM CDT Gender [...] Assessment Author Status No 10/15/2024 12:23 PM MANAGING DIRECTOR Carolina, Jessica B, R N Active * [...] PM CDT Appointment [facility] [address] Rose Conn MD [address] [place] [address] 01/10/2025 1:[address] [facility] [place] [place] [address] Rose Conn MD [address] [place] [address] 01/20/2025 3:15 PM CDT Office Visit [facility] [place] [address] Rose Conn MD [address] [place] [address] documented as of this encounter Visit Diagnoses Not on filedocumented in this encounter Additional Health Concerns Infection Onset Date Last Indicated Resolved Time MRSA Comment:Added from external infection. Source: [place], [place] [facility]. 12/24/2017 documented as of this encounter Care Teams Block Sorter Relationship Specialty Start Date End Date Ace Honeycutt MD [address] [place] [address] PCP - General FAMILY PRACTICE 04/29/24 Rose Conn MD [address] [place] [address] Consulting Physician CARDIOVASCULAR DISEASE 09/07/23 Keith Goodwin MD [address] [place] [address] Consulting Physician INTERNAL MEDICINE 09/22/23 documented as of this encounter
--- OUTSIDE RECORDS SUMMARY | 2024-12-08 16:10 | XMS_ITS | Encounter Summary ---
Author Organization [facility] Address [address] [place] [address] Phone Care Team Providers Care Java Tech Name Role Phone ShadyDonte dominguez Rochelle LLAMAS Primary Care Provider [phone] Reason for Visit * Auth/Cert (Routine) Specialty Diagnoses / Procedures Referred By Jadyn benitez Referred To Contact Referral ID Status Reason Start Date Expiration Date Visits Re quested Visits Authorized [id number] Encounter Details Date Type Department Care Team (Latest Contact Info) Description 10/06/2024 10:00 AM SECURITY FLEX OFFICER [facility] [address] [place] [address] Mai Bass, [place] START OF CARE Social History Tobacco Use Types Packs/Day Years Used Date Smoking Tobacco: Never Assessed Comments Unknown Sex and Gender Information Value Date Recorded Sex Assigned at Not on file Legal Sex Female 1:58 PM SECURITY FLEX OFFICER Gender Identity Not on file Sexual Orientation Not on file documented as of this encounter Last Filed Vital Signs Vital Sign Reading Time Taken Comments Blood Pressure 126/78 10/06/2024 10:43 AM SECURITY FLEX OFFICER Pulse 96 10/06/2024 10:43 AM SECURITY FLEX OFFICER Temperature 36.8 C (98.3 F) 10/06/2024 10:43 AM SECURITY FLEX OFFICER Respiratory Rate 20 10/06/2024 10:43 AM SECURITY FLEX OFFICER Oxygen Saturation 97% 10/06/2024 10:43 AM SECURITY FLEX OFFICER Inhaled Oxygen Concentration - - Weight 90.7 kg (200 lb) 10/06/2024 10:43 AM SECURITY FLEX OFFICER Height 165.1 cm (5' 5 ) 10/06/2024 10:43 AM SECURITY FLEX OFFICER Body Mass Index 33.28 10/06/2024 10:43 AM SECURITY FLEX OFFICER documented in this encounter Plan of Treatment Upcoming Encounters Date Type Department Care Team (Late st Contact Info) Description 12/09/2024 2:00 PM CDT Home Care Visit [address] [address] Elisa Pollack, [place] 12/13/2024 1:00 AM CDT Home Care Visit [address] [address] Mai Bass RN [place] 12/13/2024 2:00 AM CDT Home Care Visit [address] [address] Elisa Pollack, [place] 12/13/2024 8:00 AM CDT Home Care Visit [address] [address] Brooke Burt OTA [place] 12/15/2024 1:00 AM CDT Home Care Visit [address] [address] Elisa Pollack, [place] 12/15/2024 2:00 AM CDT Home Care Visit [address] [address] Brooke Burt OTA [place] 12/19/2024 1:00 AM CDT Home Care Visit [address] [address] Elisa Pollack, [place] [place] 12/20/2024 1:00 AM CDT Home Care Visit [address] [address] Mai Bass RN [place] 12/20/2024 2:00 AM CDT Home Care Visit [address] [address] Brooke Burt OTA [place] 12/21/2024 1:00 AM CDT Home Care Visit [address] [address] Elisa Pollack, [place] 12/22/2024 1:00 AM CDT Home Care Visit [address] [address] Brooke Burt, [place] 12/26/2024 1:00 AM CDT Home Care Visit [address] [address] Maggie Murguia, PT 12/27/2024 1:00 AM CDT Home Care Visit [address] [address] Mai Bass, RN [place] 12/27/2024 2:00 AM CDT Home Care Visit [address] [address] Brooke Burt, [place] 12/28/2024 1:00 AM CDT Home Care Visit [address] [address] Elisa Pollack, [place] 12/29/2024 1:00 AM CDT Home Care Visit [address] [address] Kathrin Mcmullen, OT 01/03/2025 1:00 AM CDT Home Care Visit [address] [address] Mai Bass, RN [place] 01/10/2025 1:00 AM CDT Home Care Visit [address] [address] Mai Bass, [place] 01/17/2025 1:00 AM CDT Home Care Visit [address] [address] Mai Bass, [place] 01/24/2025 1:00 AM CDT Home Care Visit [address] [address] Mai Bass, [place] 01/31/2025 1:00 AM CDT Appointment [address] [address] Mai Bass, RN [place] documented as of this encounter Visit Diagnoses Not on filedocumented in this encounter Care Teams Java Tech Relationship Specialty Start Date End Date Donte Lucas, [facility] [address] [place] [address] PCP - General Physician [employer] Worker 10/01/24 documented as of this encounter
--- OUTSIDE RECORDS SUMMARY | 2024-12-08 16:10 | XMS_ITS | Clinical Summary ---
Author Organization [facility] Address [address] [place] [address] Care Team Providers Care Body Wirer Name Role Phone Rose Conn MD Unavailable Keith Goodwin MD Unavailable Ace Honeycutt MD Primary Care Provider [phone] Allergies Active Allergy Reactions Criticality Noted Date Comments Cephalexin Unknown,Hives,Other (see comment) High 10/18/2015 hives Reaction: Unknown, , Codeine Unknown,Itching,Othe r (see comment) High 10/18/2015 Reaction: Unknown, , Erythromycin Unknown,Nausea and Vomiting,Vomiting High 10/18/2015 Insulin Glargine Unknown,Swelling Low 04/27/2022 Metformin Other (see comment) 09/14/2023 Medications HYDROcodone-acet aminophen (NORCO) 5-325 MG tablet Take 2 tablets by mouth 2 (two) times daily as needed for Pain. Active insulin aspart (NOVOLOG) 100 UNIT/ML injection (PEN) Inject 8 Units into the skin 3 (three) times daily before meals. + SLIDING SCALE Active Continuous Blood Gluc Sensor (FREESTYLE DUONG 2 SENSOR) [facility]/05/19 24 Active REGRANEX 0.01 % Gel APPLY TO WOUND ONCE A DAY 08/18/19 25 Active insulin detemir (LEVEMIR FLEXPEN) 100 UNIT/ML PEN Inject 46 Units into the skin nightly. 08/12/19 23 Active omeprazole (PRILOSEC) 40 MG capsule Take 1 capsule (40 mg total) by mouth daily. Active lubiprostone (AMITIZA) 24 MCG capsule Take 1 capsule (24 mcg total) by mouth 2 (two) times daily with meals. Active OXYGEN CONCENTRATOR SUPPLY, DME,Indications: CHF (congestive heart failure) ([facility]) 1 Device by Nasal route continuous. Nasal cannula needed. Portable oxygen concentrator pulse setting 2 1 Device 10/20/19 25 Active aspirin EC (ECOTRIN) 81 MG tablet Take 1 tablet (81 mg total) by mouth daily. 90 tablet 3 10/23/19 25 Active atorvastatin (LIPITOR) 80 MG tablet Take 1 tablet (80 mg total) by mouth daily. 30 tablet 10/23/19 25 Active ezetimibe (ZETIA) 10 MG tablet Take 1 tablet (10 mg total) by mouth daily. 30 tablet 10/23/19 25 Active rivaroxaban (XARELTO) 20 MG Tab tabletIndication s:Atrial Fibrillation Take 1 tablet (20 mg total) by mouth daily with supper. Indications: Atrial Fibrillation Take with food 30 tablet 10/23/19 25 Active lidocaine 4 % patch Place 1 patch onto the skin daily. Remove & Discard patch within 12 hours or as directed by MD 30 patch 10/23/19 25 Active bumetanide (BUMEX) 2 MG tablet Take 1 tablet (2 mg total) by mouth 3 (three) times daily for 30 days. 90 tablet 10/23/19 25 025 gabapentin (NEURONTIN) 400 MG capsule Take 3 capsules (1,200 mg total) by mouth nightly at bedtime for 30 days. 90 capsule 10/23/19 25 025 gabapentin (NEURONTIN) 400 MG capsule Take 1 capsule (400 mg total) by mouth daily for 30 days. 90 capsule 10/23/19 25 025 metoprolol succinate ER (TOPROL-XL) 25 MG 24 hr tablet Take 1 tablet (25 mg total) by mouth daily for 30 days. 30 tablet 10/23/19 25 025 albuterol (PROVENTIL) (5 MG/ML) 0.5% nebulizer solution Take 1 mL (5 mg total) by nebulization every 4 (four) hours as needed for Shortness of breath. 20 mL 03/15/ 025 famotidine (PEPCID) 20 MG tablet Take 1 tablet (20 mg total) by mouth nightly for 30 days. 60 tablet 10/23/19 025 ferrous sulfate, 65 mg elemental, 325 (65 FE) MG tablet Take 1 tablet (325 mg total) by mouth daily with breakfast for 30 days. 30 tablet 10/23/19 25 025 guaiFENesin ER (MUCINEX) 600 MG 12 hr tablet Take 1 tablet (600 mg total) by mouth 2 (two) times daily for 30 days. 28 tablet 10/23/19 025 ipratropium-albu terol (DUONEB) 0.5-2.5 (3) MG/3ML Solution Take 3 mLs by nebulization every 4 (four) hours for 30 days. 360 mL 10/23/19 025 potassium chloride CR (KLOR-CON M) 20 MEQ tablet Take 1 tablet (20 mEq total) by mouth 3 (three) times daily for 30 days. 90 tablet 10/23/19 025 sodium chloride 7 % Nebu Soln Take 4 mLs by nebulization 2 (two) times daily for 30 days. 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, limited to breakdown of skin ([facility]) 09/15/2023 Diabetic ulcer of right heel associated with type 2 diabetes mellitus, limited to breakdown of skin ([facility]) Encounters Date Type Department Care Team Description 10/24/2024 Hospital Follow-up Call [facility] [address] [place] [address] Florinda Shanks RN 10/19/2024 Travel 10/15/2024 12:14 PM SALES OPERATIONS DIRECTOR - 10/20/2024 4:19 PM CDT Hospital Encounter [facility] [address] [place] [address] Balaji Woodward MD Boddu, Lavanya, MD Discharge Disposition: Home or Self Care (Routine Discharge) 10/14/2024 7:19 PM SALES OPERATIONS DIRECTOR Anesthesia Event [facility] [address] [place] [address] Jeffery Escobar CRNA 10/14/2024 4:10 PM SALES OPERATIONS DIRECTOR - 10/15/2024 11:11 AM SALES OPERATIONS DIRECTOR Hospital Encounter [facility] [address] [place] [address] [place] [address] Matt Mixon DO Dufner, Anastasia M, MD Breathing Problem Discharge Disposition: Transfer to [facility] 10/14/2024 Travel 09/11/2024 12:52 PM SALES OPERATIONS DIRECTOR - 09/12/2024 11:41 PM SALES OPERATIONS DIRECTOR Emergency [facility] [address] [place] [address] [place] [address] Malena Cortez MD Sprague, Robert, DO Nausea Discharge Disposition: Transfer to [facility] 09/11/2024 Travel from Last 3 Months Family History [...] drink = 0.6 oz pur e alcohol) [facility] Utilities Answer Date Recorded In the past 12 months has e [employer], [employer], or water [employer] threatened to shut off services in your [...] any time in the past 12 m [facility], were you homeless or living in a detention (including now)? No 10/15/2024 Comments No Sex and Gender Information Value Date Recorded Sex Assigned at Female 08/31/2024 8:28 AM SALES OPERATIONS DIRECTOR Legal Sex Female 8:37 PM CDT [...] Description 01/10/2025 12:[address] [place] [place] [address] Rose Conn MD [address] [place] [address] 01/10/2025 1:[address] [place] [place] [address] Rose oCnn MD [address] [place] [address] 01/20/2025 3:15 PM CDT Office Visit [facility] [address] [place] [address] Rose Conn MD [address] [place], [place] [id number] Health Maintenance Due Date Last Done Comments Colorectal Cancer Screening Colonoscopy (10 Years) 1974 Annual Physical 1977 Diabetes: Retinopathy Eye Exam 1992 Hepatitis C 1992 DTaP, Tdap and Td Vaccines (1 - Tdap) 1993 Hepatitis B Vaccines (1 of 3 - 19+ 3-dose series) 1993 Pneumococcal Vaccine: Pediatrics (0 to 5 Years) and At-Risk Patients (6 to 49 Years) (1 of 2 - PCV) 1993 Mammogram Screening 2014 COVID-19 Vaccine ( - season) 2024 PHQ-2 (Physician [employer] [place]) 08/10/2024 ASCVD LDL 09/15/2024 09/15/2023 Lipid Panel [...] RED BLOOD CELLS Routine 10/16/2024 12:45 AM SALES OPERATIONS DIRECTOR POCT GLUCOSE - CHISHOLM DOCKED DEVICE Routine 10/16/2024 12:11 AM SALES OPERATIONS DIRECTOR HC BLOOD TYPING ABO Routine 10/15/2024 8:00 PM SALES OPERATIONS DIRECTOR HEMOGLOBIN AND HEMATOCRIT Routine 10/15/2024 8:00 PM SALES OPERATIONS DIRECTOR TROPONIN, QUANT Routine 10/15/2024 8:00 PM SALES OPERATIONS DIRECTOR POCT GLUCOSE - CHISHOLM DOCKED DEVICE Routine 10/15/2024 7:59 [address]ES O[address]ATIONS DIRECTOR [address] ABD+PEL WO CON STAT 10/15/2024 6:00 PM SALES OPERATIONS DIRECTOR CULTURE, BACTERIA, BLOOD Routine 10/15/2024 3:43 PM SALES OPERATIONS DIRECTOR TYPE & SCREEN Routine 10/15/2024 3:43 PM SALES OPERATIONS DIRECTOR PROTHROMBIN TIME, VENOUS Routine 10/15/2024 3:43 PM SALES OPERATIONS DIRECTOR CBC W/DIFF AUTOMATED Routine 10/15/2024 3:43 PM SALES OPERATIONS DIRECTOR CALCIUM, IONIZED Routine 10/15/2024 3:43 PM SALES OPERATIONS DIRECTOR HEPATIC FUNCTION PANEL Routine 10/15/2024 3:43 PM SALES OPERATIONS DIRECTOR THYROID STIM HORMONE TSH Routine 10/15/2024 3:43 PM SALES OPERATIONS DIRECTOR PHOSPHORUS, INORGANIC PHOSPHATE Routine 10/15/2024 3:43 PM SALES OPERATIONS DIRECTOR LACTIC ACID Routine 10/15/2024 3:43 PM SALES OPERATIONS DIRECTOR MAGNESIUM Routine 10/15/2024 3:43 PM SALES OPERATIONS DIRECTOR TROPONIN, QUANT Routine 10/15/2024 3:43 PM SALES OPERATIONS DIRECTOR BASIC METABOLIC PANEL Routine 10/15/2024 3:43 PM SALES OPERATIONS DIRECTOR PRO-BRAIN NATRIURETIC PEPTIDE STAT 10/15/2024 3:43 PM SALES OPERATIONS DIRECTOR US RETROPERITONEAL LTD Today 10/15/2024 3:21 PM SALES OPERATIONS DIRECTOR POCT GLUCOSE - CHISHOLM DOCKED DEVICE Routine 10/15/2024 3:07 PM SALES OPERATIONS DIRECTOR USE ECHOCARDIOGRAM W CON Routine 10/15/2024 2:34 PM SALES OPERATIONS DIRECTOR CULTURE LOWER RESPIRATORY W/GRAM STAIN Nurse Collected Priority 10/15/2024 2:20 PM SALES OPERATIONS DIRECTOR XR CHEST PORTABLE Routine 10/15/2024 1:43 PM SALES OPERATIONS DIRECTOR RESPIRATORY PCR PANEL 2 Nurse Collected Priority 10/15/2024 1:32 PM SALES OPERATIONS DIRECTOR ECG 12-LEAD STAT 10/15/2024 1:14 PM SALES OPERATIONS DIRECTOR MRSA SCREENING Nurse Collected Priority 10/15/2024 12:54 PM SALES OPERATIONS DIRECTOR HC URINALYSIS AUTO W/MICRO Nurse Collected Priority 10/15/2024 12:54 PM SALES OPERATIONS DIRECTOR URINE BACTERIA CULTURE Nurse Collected Priority 10/15/2024 12:53 PM SALES OPERATIONS DIRECTOR POCT GLUCOSE - CHISHOLM DOCKED DEVICE Routine 10/15/2024 12:37 PM SALES OPERATIONS DIRECTOR POCT GLUCOSE - CHISHOLM DOCKED DEVICE Routine 10/15/2024 11:02 AM SALES OPERATIONS DIRECTOR ECG 12-LEAD Routine 10/15/2024 9:32 AM SALES OPERATIONS DIRECTOR CARDIAC PROFILE Routine 10/15/2024 9:20 AM SALES OPERATIONS DIRECTOR BLOOD GAS, VENOUS STAT 10/15/2024 8:37 AM SALES OPERATIONS DIRECTOR XR CHEST PORTABLE STAT 10/15/2024 8:32 AM SALES OPERATIONS DIRECTOR TRANSFUSE RED BLOOD CELLS Routine 10/15/2024 8:20 AM SALES OPERATIONS DIRECTOR TYPE & SCREEN Routine 10/15/2024 5:17 AM SALES OPERATIONS DIRECTOR LACTIC ACID STAT 10/15/2024 5:17 AM SALES OPERATIONS DIRECTOR POCT GLUCOSE - CHISHOLM DOCKED DEVICE Routine 10/15/2024 4:37 AM SALES OPERATIONS DIRECTOR FOLIC ACID SERUM Routine 10/15/2024 4:24 AM SALES OPERATIONS DIRECTOR VITAMIN B-12 Routine 10/15/2024 4:24 AM SALES OPERATIONS DIRECTOR RETICULOCYTE CT, AUTO Routine 10/15/2024 4:24 AM SALES OPERATIONS DIRECTOR FERRITIN Routine 10/15/2024 4:24 AM SALES OPERATIONS DIRECTOR IRON SAT PANEL (IRON,IBC,%SAT) Routine 10/15/2024 4:24 AM SALES OPERATIONS DIRECTOR COMPREHENSIVE METABOLIC PANEL STAT 10/15/2024 4:24 AM SALES OPERATIONS DIRECTOR CBC W/DIFF AUTOMATED STAT 10/15/2024 4:24 AM SALES OPERATIONS DIRECTOR POCT GLUCOSE - CHISHOLM DOCKED DEVICE Routine 10/14/2024 11:39 PM SALES OPERATIONS DIRECTOR URINE BACTERIA CULTURE STAT 10/14/2024 8:10 PM SALES OPERATIONS DIRECTOR HC URINALYSIS AUTO W/MICRO STAT 10/14/2024 8:10 PM SALES OPERATIONS DIRECTOR IV PLACEMENT Routine 10/14/2024 7:00 PM SALES OPERATIONS DIRECTOR CULTURE, BACTERIA, BLOOD Routine 10/14/2024 6:42 PM SALES OPERATIONS DIRECTOR CULTURE, BACTERIA, BLOOD Routine 10/14/2024 6:37 PM SALES OPERATIONS DIRECTOR XR CHEST PA+LAT STAT 10/14/2024 5:26 PM SALES OPERATIONS DIRECTOR PRO-BRAIN NATRIURETIC PEPTIDE STAT 10/14/2024 5:09 PM SALES OPERATIONS DIRECTOR MAGNESIUM STAT 10/14/2024 5:09 PM SALES OPERATIONS DIRECTOR COMPREHENSIVE METABOLIC PANEL STAT 10/14/2024 5:09 PM SALES OPERATIONS DIRECTOR CBC W/DIFF AUTOMATED STAT 10/14/2024 5:09 PM SALES OPERATIONS DIRECTOR BLOOD GAS, ARTERIAL LAB STAT 10/14/2024 4:56 PM SALES OPERATIONS DIRECTOR POCT GLUCOSE - CHISHOLM DOCKED DEVICE Routine 10/14/2024 4:44 PM SALES OPERATIONS DIRECTOR POCT GLUCOSE - CHISHOLM DOCKED DEVICE Routine 09/12/2024 11:33 PM SALES OPERATIONS DIRECTOR POCT GLUCOSE - CHISHOLM DOCKED DEVICE Routine 09/12/2024 10:56 PM SALES OPERATIONS DIRECTOR BLOOD GAS, ARTERIAL LAB STAT 09/12/2024 10:33 PM SALES OPERATIONS DIRECTOR ECG 12-LEAD Routine 09/12/2024 10:25 PM SALES OPERATIONS DIRECTOR POCT GLUCOSE - CHISHOLM DOCKED DEVICE Routine 09/12/2024 9:49 PM SALES OPERATIONS DIRECTOR BLOOD GAS, ARTERIAL LAB STAT 09/12/2024 9:06 PM SALES OPERATIONS DIRECTOR BETA-HYDROXYBUTYRATE STAT 09/12/2024 9:06 PM SALES OPERATIONS DIRECTOR BASIC METABOLIC PANEL STAT 09/12/2024 9:06 PM SALES OPERATIONS DIRECTOR POCT GLUCOSE - CHISHOLM DOCKED DEVICE Routine 09/12/2024 8:48 PM SALES OPERATIONS DIRECTOR PARTIAL THROMBOPLASTIN TIME,PTT STAT 09/12/2024 8:20 PM SALES OPERATIONS DIRECTOR COMPREHENSIVE METABOLIC PANEL STAT 09/12/2024 6:34 PM SALES OPERATIONS DIRECTOR ECG 12-LEAD STAT 09/12/2024 6:33 PM SALES OPERATIONS DIRECTOR TROPONIN, QUANT STAT 09/12/2024 6:32 PM SALES O[address]ATIONS DIRECTOR CT HEAD WO CON STAT 09/12/2024 6:27 PM SALES OPERATIONS DIRECTOR XR CHEST PORTABLE STAT 09/12/2024 6:27 PM SALES OPERATIONS DIRECTOR PARTIAL THROMBOPLASTIN TIME,PTT STAT 09/12/2024 2:23 PM SALES OPERATIONS DIRECTOR ECG 12-LEAD Routine 09/12/2024 10:41 AM SALES OPERATIONS DIRECTOR PARTIAL THROMBOPLASTIN TIME,PTT STAT 09/12/2024 6:18 AM SALES OPERATIONS DIRECTOR PROTHROMBIN TIME, VENOUS STAT 09/12/2024 6:18 AM SALES OPERATIONS DIRECTOR CBC W/DIFF AUTOMATED STAT 09/12/2024 6:18 AM SALES OPERATIONS DIRECTOR HEPARIN, ANTI XA, UFH STAT 09/12/2024 6:17 AM SALES OPERATIONS DIRECTOR POCT GLUCOSE - CHISHOLM DOCKED DEVICE Routine 09/12/2024 3:18 AM SALES OPERATIONS DIRECTOR PARTIAL THROMBOPLASTIN TIME,PTT STAT 09/12/2024 12:16 AM SALES OPERATIONS DIRECTOR PARTIAL THROMBOPLASTIN TIME,PTT STAT 09/11/2024 4:02 PM SALES OPERATIONS DIRECTOR CULTURE, BACTERIA, BLOOD STAT 09/11/2024 3:53 PM SALES OPERATIONS DIRECTOR TROPONIN, QUANT TIMED 09/11/2024 3:53 PM SALES OPERATIONS DIRECTOR CT CHEST+ABD+PEL WO CON STAT 09/11/2024 1:56 PM SALES OPERATIONS DIRECTOR PROTHROMBIN TIME, VENOUS STAT 09/11/2024 1:39 PM SALES OPERATIONS DIRECTOR HEPARIN, ANTI XA, UFH STAT 09/11/2024 1:39 PM SALES OPERATIONS DIRECTOR BLOOD GAS, VENOUS STAT 09/11/2024 1:39 PM SALES OPERATIONS DIRECTOR MAGNESIUM STAT 09/11/2024 1:39 PM SALES OPERATIONS DIRECTOR LACTIC ACID W REFLEX (SEPSIS) STAT 09/11/2024 1:39 PM SALES OPERATIONS DIRECTOR TROPONIN, QUANT STAT 09/11/2024 1:39 PM SALES OPERATIONS DIRECTOR COMPREHENSIVE METABOLIC PANEL STAT 09/11/2024 1:39 PM SALES OPERATIONS DIRECTOR CBC W/DIFF AUTOMATED STAT 09/11/2024 1:39 PM SALES OPERATIONS DIRECTOR POCT GLUCOSE - CHISHOLM DOCKED DEVICE Routine 09/11/2024 1:37 PM SALES OPERATIONS DIRECTOR ECG 12-LEAD Routine 09/11/2024 1:32 PM SALES OPERATIONS DIRECTOR URINE BACTERIA CULTURE STAT 09/11/2024 1:12 PM SALES OPERATIONS DIRECTOR HC URINALYSIS AUTO W/MICRO STAT 09/11/2024 1:12 PM SALES OPERATIONS DIRECTOR LIPID PANEL Routine 09/15/2023 9:04 AM SALES OPERATIONS DIRECTOR Familial hypercholesterolemia from Last 3 Months or Most Recently Relevant to Health Maintenance Results * (ABNORMAL) CBC W/DIFF AUTOMATED (10/20/2024 1:58 PM CDT) Only the most recent of8 resultswithin the time period is included. [facility] WBC 10.26 4.00 - 10.80 x10'3/uL 10/20/2024 2:15 PM CDT [facility] RBC 3.11(L) 4.10 - 5.40 x10'6/uL 10/20/2024 2:15 PM CDT [facility] HGB 8.8(L) 12.0 - 16.0 G/DL 10/20/2024 2:15 PM CDT [facility] HCT 29.2(L) 36.0 - 47.0 % 10/20/2024 2:15 PM CDT [facility] MCV 93.9 78.0 - 100.0 FL 10/20/2024 2:15 PM CDT [facility] MCH 28.3 27.0 - 31.0 PG 10/20/2024 2:15 PM CDT [facility] MCHC 30.1(L) 33.0 - 36.0 G/DL 10/20/2024 2:15 PM CDT [facility] RDW 18.4(H) 11.5 - 14.5 % 10/20/2024 2:15 PM CDT [facility] PLT 256 150 - 350 x10'3/uL 10/20/2024 2:15 PM CDT [facility] MPV 10.8(H) 7.4 - 10.4 FL 10/20/2024 2:15 PM CDT [facility] DIFFERENTIAL TYPE AUTOMATED DIFFERENTIAL 10/20/2024 2:15 PM CDT [facility] SEG NEUTROPHILS 72.9 % 2:15 PM CDT [facility] LYMPHOCYTES 15.0 % 10/20/2024 2:15 PM CDT [facility] MONOCYTES 9.4 % 10/20/2024 2:15 PM CDT [facility] EOSINOPHILS 2.0 % 10/20/2024 2:15 PM CDT [facility] BASOPHILS 0.1 % 10/20/2024 2:15 PM CDT [facility] IMMATURE GRANS % 0.6 % 10/21/19 2:15 PM CDT [facility] ABS. NEUTROPHILS 7.48 1.60 - 8.30 x10'3/uL 10/20/2024 2:15 PM CDT [facility] ABS. LYMPHOCYTES 1.54 0.80 - 4.70 x10'3/uL 10/20/2024 2:15 PM CDT [facility] ABS. MONOCYTES 0.96 0.00 - 1.50 x10'3/uL 10/20/2024 2:15 PM CDT [facility] ABS. EOSINOPHILS 0.21 0.00 - 0.40 x10'3/uL 10/20/2024 2:15 PM CDT [facility] ABS. BASOPHILS 0.01 0.00 - 0.20 x10'3/uL 10/20/2024 2:15 PM CDT [facility] ABS. IMMATURE GRANULOCYTES 0.06(H) 0.00 - 0.03 x10'3/uL 10/20/2024 2:15 PM CDT [facility] ABS. NUCLEATED RBC'S 0.00 0.00 - 0.01 x10'3/uL 10/20/2024 2:15 PM CDT [facility] NRBC % 0.0 % 10/20/2024 2:15 PM CDT [facility] 10/20/2024 1:58 PM CDT us Mari Galeas MD LABORATORY Final Result [facility] [address] [place] [address], [phone] * IMMUNOFIXATION, URINE (10/20/2024 11:30 AM CDT) IMMUNOFIXATION URINE SEE PATHOLOGIST'S INTERPRETATION 10/21/2024 12:52 PM CDT [facility] IMMUNOFIXATION INTERPRETATION (U) THIS URINE IMMUNOTYPING WAS INTERPRETED BY 10/24/2024 10:22 AM CDT [facility] Comment: DR PAVITHRA FLORENCE MD [place] PROTEIN NOT DETECTED. 10/20/2024 11:3 0 AM CDT Maris Aguilar DOUGH CATCHER URINE ORDERABLES Final R esult Performing Organization Address [facility] Co de Phone Number [facility] [address] [place] [address], [phone] * (ABNORMAL) PROTEIN ELECTROPHORESIS URINE RANDOM (10/20/2024 11:30 AM CDT) PROTEIN URINE TOTAL RANDOM 14.5(H) <12.0 MG/DL 10/21/2024 12:51 PM CDT [facility] INTERPRETATION THIS URINE PEP WAS INTERPRETED BY 10/24/2024 10:20 AM CDT [facility] Comment: DR PAVITHRA FLORENCE MD NO SIGNIFICANT RANDOM PROTEINURIA. THERE IS A TRACE OF ALBUMIN ON ELECTROPHORESIS. [place] PROTEIN IS NOT DETECTED. URINE SPECIMEN / Unknown 10/20/2024 11:30 AM CDT us Maris Aguilar DOUGH CATCHER URINE ORDERABLES Final R esult Performing Organization Address [facility]/ZIP Co de Phone Number [facility] [address] [place] [address], [place] [phone] * (ABNORMAL) URINALYSIS (10/20/2024 11:30 AM CDT) Only the most recent of4 resultswithin the time period is included. COLOR (U) LIGHT YELLOW 10/20/2024 11:59 AM CDT [facility] TRANSPARENCY CLEAR 10/20/2024 11:59 AM CDT [facility] SPECIFIC GRAVITY (U) 1.012 1.002 - 1.035 10/20/2024 11:59 AM CDT [facility] U PH 7.0 5 - 8 10/20/2024 11:59 AM CDT [facility] PROTEIN RANDOM (U) NEGATIVE NEGATIVE 10/20/2024 11:59 AM CDT [facility] GLUCOSE (U) 100(A) NEGATIVE MG/DL 10/20/2024 11:59 AM CDT [facility] KETONES MG/DL (U) NEGATIVE NEGATIVE 10/20/2024 11:59 AM CDT [facility] BILIRUBIN (U) NEGATIVE NEGATIVE 10/20/2024 11:59 AM CDT [facility] BLOOD (U) 1+(A) NEGATIVE 10/20/2024 11:59 AM CDT [facility] NITRITES NEGATIVE NEGATIVE 10/20/2024 11:59 AM CDT [facility] UROBILINOGEN NORMAL 0 - 1 EU/DL 10/20/2024 11:59 AM CDT [facility] LEUKOCYTES (U) 1+(A) NEGATIVE 10/20/2024 11:59 AM CDT [facility] RBC/HPF 21(H) 0 - 3 /HPF 10/20/2024 11:59 AM CDT [facility] WBC/HPF 3 0 - 6 /HPF 10/20/2024 11:59 AM CDT [facility] BACTERIA (U) NONE /HPF 10/20/2024 11:59 AM CDT [facility] SQUAMOUS EPITHELIALS 12 10/20/2024 11:59 AM CDT [facility] BUDDING YEAST PRESENT 10/20/2024 11:59 AM CDT [facility] HYALINE CASTS 8 10/20/2024 11:59 AM CDT [facility] URINE SPECIMEN OBTAINED BY CLEAN CATCH PROCEDURE / Unknown 10/20/2024 11:30 AM CDT us Mari Galeas MD URINE ORDERABLES Final Result Performing Organization Address City/[facility]/ZIP Co de Phone Number [facility] [address] [place] [address], [place] [phone] * (ABNORMAL) POCT glucose (10/20/2024 11:20 AM CDT) Only the most recent of33 resultswithin the time period is included. GLUCOSE POC 185(H) 70 - 109 10/20/2024 11:24 AM CDT [facility] 10/20/2024 11:2 0 AM CDT us Mari Galeas MD POCT ORDERABLES - DEVICE Final Result Performing Organization Address [facility] de Phone Number [facility] [address] [place] [address], [phone] * (ABNORMAL) BASIC METABOLIC PANEL (10/20/2024 2:30 AM CDT) Only the most recent of8 resultswithin the time period is included. SODIUM S/P/B 139 136 - 145 MMOL/L 10/20/2024 3:22 AM CDT [facility] POTASSIUM S/P/B 4.0 3.5 - 5.1 MMOL/L 10/20/2024 3:22 AM CDT [facility] CHLORIDE S/P/B 105 97 - 115 MMOL/L 10/20/2024 3:22 AM CDT [facility] CO2 27.8 21.0 - 32.0 MMOL/L 10/20/2024 3:22 AM CDT [facility] GLUCOSE 242(H) 74 - 106 MG/DL 10/20/2024 3:22 AM CDT [facility] BUN 52(H) 7 - 18 MG/DL 10/20/2024 3:22 AM CDT [facility] CREATININE S/P/B 1.71(H) 0.55 - 1.02 MG/DL 10/20/2024 3:22 AM CDT [facility] CALCIUM S/P/B 8.6 8.5 - 10.1 MG/DL 10/20/2024 3:22 AM CDT [facility] ANION GAP 6.2 2.0 - 10.0 MMOL/L 10/20/2024 3:22 AM CDT [facility] OSMOLALITY (CALC) 310 MOSM/KG 025 3:22 AM T [facility] Comment:REFERENCE RANGE NOT ESTABLISHED GFR ESTIMATE 36(L) >90 ML/MIN/1. 73 M2 10/20/2024 3:22 AM CDT [facility] GFR NOTES GFR REFERENCE S: 10/20/2024 3:22 AM CDT [facility] Comment: THE ESTIMATED GFR IS [...] us Balaji Bartlett MD LABORATORY Final Result [facility] [address] [place] [address], [place] [phone] [id number] * MAGNESIUM (10/20/2024 2:30 AM CDT) Only the most recent of9 resultswithin the time period is included. MAGNESIUM 2.0 1.6 - 2.6 MG/DL 10/20/2024 3:22 AM CDT [facility] 10/20/2024 2:30 AM CDT Balaji Bartlett MD LABORATORY Final Result [facility] [address] [place] [address], [id number] * (ABNORMAL) RENAL FUNCTION PANEL (10/19/2024 11:44 PM CDT) Only the most recent of2 resultswithin the time period is included. Pathologist [facility] SODIUM S/P/B 137 136 - 145 MMOL/L 10/20/2024 12:35 AM CDT [facility] POTASSIUM S/P/B 4.0 3.5 - 5.1 MMOL/L 10/20/2024 12:35 AM CDT [facility] CHLORIDE S/P/B 103 97 - 115 MMOL/L 10/20/2024 12:35 AM CDT [facility] CO2 27.7 21.0 - 32.0 MMOL/L 10/20/2024 12:35 AM CDT [facility] GLUCOSE 303(H) 74 - 106 MG/DL 10/20/2024 12:35 AM CDT [facility] BUN 52(H) 7 - 18 MG/DL 10/20/2024 12:35 AM CDT [facility] CREATININE S/P/B 1.78(H) 0.55 - 1.02 MG/DL 10/20/2024 12:35 AM CDT [facility] CALCIUM S/P/B 8.8 8.5 - 10.1 MG/DL 10/20/2024 12:35 AM CDT [facility] ALBUMIN S/P/B 2.5(L) 3.4 - 5.0 G/DL 10/20/2024 12:35 AM CDT [facility] PHOSPHORUS 2.8 2.5 - 4.9 MG/DL 10/20/2024 12:35 AM CDT [facility] ANION GAP 6.3 2.0 - 10.0 MMOL/L 10/20/2024 12:35 AM CDT [facility] OSMOLALITY (CALC) 309 MOSM/KG 025 12:35 AM CDT [facility] Comment:REFERENCE RANGE NOT ESTABLISHED GFR ESTIMATE 35(L) >90 ML/MIN/1. 73 M2 10/20/2024 12:35 AM CDT [facility] GFR NOTES GFR REFERENCE S: 10/20/2024 12:35 AM CDT [facility] Comment: THE ESTIMATED GFR IS [...] ml/min/1.73 m2 10/19/2024 11:4 4 PM CDT us Maris Aguilar NP LABORATORY Final Re sult [facility] [address] [place] [address], [phone] * (ABNORMAL) ALBUMIN URINE RANDOM W/CREATININE (10/19/2024 4:19 PM CDT) Only the most recent of2 resultswithin the time period is included. ALBUMIN (U) 1.3 MG/DL 10/19/2024 5:08 PM CDT [facility] CREATININE (U) 40.4 MG/DL 10/19/2024 5:08 PM CDT [facility] Comment:REFERENCE RANGE NOT ESTABLISHED MICROALBUMIN (U) 31.4(H) <25.0 MG/G 10/20/19 25 5:08 PM CDT [facility] URINE SPECIMEN / Unknown 10/19/2024 4:19 PM CDT us Maris Aguilar DOUGH CATCHER URINE ORDERABLES Final R esult [facility] [address] [place] [address], [phone] * USV JUSTIN DUPLEX LOW EXT MANPREET (10/19/2024 3:17 PM CDT) Anatomical Region Laterality Modality Extremity Ultrasound 10/19/2024 2:22 PM CDT Narrative 10/20/2024 8:33 AM CDT Vascular Report Pat.Name: CEM MARSHALL Pat.ID: [id number] .Date: 10/19/2024 Refer.MD: MARI GALEAS Exam Time: 2:22:00 PM Study Type:PVI VENOUS DUPLEX SCAN-LEGS BILAT Height: 65 in Age: 4 1975,48Y Sex: F Sonogrphr: Rene Christiansen RVT Pat. Stat.:Inpatient Room: 504 ICD - 9: M79.89 Swelling of limb CPT - 4: 10533 Venous Duplex LE/UE Reason for Study:Lower limb swelling Race: W ++++++++++++++++++++++++++++++++++++ FINDINGS: ++++++++++++++++++++++++++++++++++++ Bilat: No evidence of acute or chronic thrombosis noted in the deep or superficial veins in either lower extremity. Comments: Technically difficult study due to inability to position. <Electronic Signature> 10/20/2024 08:33 AM Rose Conn M.D. Procedure Note Rose Conn MD - 10/20/2024 Vascular Report Pat.Name: CEM MARSHALL Pat.ID: [id number] .Date: 10/19/2024 Refer.MD: MARI GALEAS Exam Time: 2:22:00 PM Study Type:PVI VENOUS DUPLEX SCAN-LEGS BILAT Height: 65 in Age: 4 1975,48Y Sex: F Sonogrphr: Rene Christiansen RVT Pat. Stat.:Inpatient Room: [facility] ICD - 9: M79.89 Swelling of limb CPT - 4: 40539 Venous Duplex LE/UE Reason for Study:Lower limb swelling Race: W ++++++++++++++++++++++++++++++++++++ FINDINGS: ++++++++++++++++++++++++++++++++++++ Bilat: No evidence of acute or chronic thrombosis noted in the deep or superficial veins in either lower extremity. Comments: Technically difficult study due to inability to position. <Electronic Signature> 10/20/2024 08:33 AM Rose Conn M.D. us Mari Galeas MD VAS Final Result * (ABNORMAL) CBC, AUTO, NO DIFF (10/18/2024 3:09 AM CDT) Only the most recent of3 resultswithin the time period is included. Pathologist [facility] WBC 11.15(H) 4.00 - 10.80 x10'3/uL 10/18/2024 3:17 AM CDT [facility] RBC 3.07(L) 4.10 - 5.40 x10'6/uL 10/18/2024 3:17 AM CDT [facility] HGB 8.9(L) 12.0 - 16.0 G/DL 10/18/2024 3:17 AM CDT [facility] HCT 28.8(L) 36.0 - 47.0 % 10/18/2024 3:17 AM CDT [facility] MCV 93.8 78.0 - 100.0 FL 10/18/2024 3:17 AM CDT [facility] MCH 29.0 27.0 - 31.0 PG 10/18/2024 3:17 AM CDT [facility] MCHC 30.9(L) 33.0 - 36.0 G/DL 10/18/2024 3:17 AM CDT [facility] RDW 19.1(H) 11.5 - 14.5 % 10/18/2024 3:17 AM CDT [facility] PLT 284 150 - 350 x10'3/uL 10/18/2024 3:17 AM CDT [facility] MPV 10.9(H) 7.4 - 10.4 FL 10/18/2024 3:17 AM CDT [facility] 10/18/2024 3:09 AM CDT Segundo Storm MD LABORATORY Final Result [facility] [address] [place] [address], [phone] * PHOSPHORUS, INORGANIC PHOSPHATE (10/18/2024 3:09 AM CDT) Only the most recent of4 resultswithin the time period is included. PHOSPHORUS 4.5 2.5 - 4.9 MG/DL 10/18/2024 3:50 AM CDT [facility] 10/18/2024 3:09 AM CDT Segundo Storm MD LABORATORY Final Result Performing Organization Address City/[facility]/ZIP Co de Phone Number [facility] [address] [place] [address], [place] [phone] * CULTURE, BACTERIA BLOOD (10/17/2024 2:27 PM CDT) Only the most recent of5 resultswithin the time period is included. SPEC DESCRIPTION BLOOD 10/18/19 2:34 PM CDT [facility] SPECIAL REQUESTS BLOOD-AERO BIC BOTTLE ONLY 10/17/2024 2:34 PM CDT [facility] CULTURE RESULT NO GROWTH 5 DAYS 10/22/2024 2:36 PM CDT [facility] BLOOD SPECIMEN OBTAINED FOR BLOOD CULTURE / Unknown 10/17/2024 2:27 PM CDT 10/17/2024 2:34 PM CDT Balaji Bartlett MD MICROBIOLOGY - GENERAL ORDER JAROD Final Result Performing Organization Address City/[facility]/[place] Co de Phone Number [facility] [address] [place] [address], [phone] * (ABNORMAL) HEPARIN, ANTI XA, UFH (10/17/2024 1:45 AM CDT) Only the most recent of6 resultswithin the time period is included. Pathologist [facility] HEPARIN ANTI XA UFH 0.15(L) 0.30 - 0.70 IU/ML 10/17/2024 2:09 AM CDT [facility] Comment: UFH Therapeutic Anti Xa Ranges: Medical Therapeutic Range: 0.30 - 0.70 IU/mL Cardiac Therapeutic Range: 0.30 - 0.50 IU/mL Neuro Therapeutic Range: 0.20 - 0.40 IU/mL 10/17/2024 1:45 AM CDT us Balaji Bartlett MD LABORATORY Final Result Performing Organization Address [facility] Co de Phone Number [facility] [address] [place] [address], [place] [phone] * (ABNORMAL) PROTIME/INR, VENOUS (10/17/2024 1:45 AM CDT) Only the most recent of5 resultswithin the time period is included. PROTIME 12.6(H) 9.4 - 12.5 SEC 10/17/2024 3:09 AM CDT [facility] INR 1.1 0.8 - 1.1 10/17/2024 3:09 AM CDT [facility] 10/17/2024 1:45 AM CDT us Balaji Bartlett MD LABORATORY Final Result Performing Organization Address [facility] Co de Phone Number [facility] [address] [place] [address], [place] [phone] * (ABNORMAL) HEMOGLOBIN AND HEMATOCRIT (10/16/2024 8:00 PM CDT) Only the most recent of2 resultswithin the time period is included. HGB 9.4(L) 12.0 - 16.0 G/DL 10/16/2024 8:03 PM CDT [facility] HCT 31.1(L) 36.0 - 47.0 % 10/16/2024 8:03 PM CDT [facility] 10/16/2024 8:00 PM CDT us Balaji Bartlett MD LABORATORY Final Result Performing Organization Address [facility] Co de Phone Number [facility] [address] [place] [address], [phone] * (ABNORMAL) POCT ACUTE VENOUS PANEL (10/16/2024 5:14 PM CDT) Only the most recent of2 resultswithin the time period is included. SODIUM WHOLE BLOOD 142 138 - 146 mmol/L 10/16/2024 5:16 PM CDT [facility] POTASSIUM WHOLE BLOOD 5.0(H) 3.5 - 4.9 mmol/L 10/16/2024 5:16 PM CDT [facility] CA IONIZED WH BLOOD 1.23 1.12 - 1.32 mmol/L 10/16/2024 5:16 PM CDT [facility] POC PH VENOUS 7.398 7.31 - 7.41 10/16/2024 5:16 PM CDT [facility] POC PCO2 VENOUS 45.1 41.0 - 51.0 MMHG 10/16/2024 5:16 PM CDT [facility] POC PO2 VENOUS 31 25 - 40 MMHG 10/16/2024 5:16 PM CDT [facility] POC HCO3 VENOUS 27.9 23 - 28 MMOL/L 10/16/2024 5:16 PM CDT [facility] POC TCO2 VENOUS 29 24 - 29 MMOL/L 10/16/2024 5:16 PM CDT [facility] POC BASE EXCESS VENOUS 3 0 - 3 MMOL/L 10/16/2024 5:16 PM CDT [facility] POC HEMATOCRIT 42 38 - 51 % 10/16/2024 5:16 PM CDT [facility] TIME TEST WAS PERFORMED: 1714 10/16/2024 5:16 PM CDT [facility] 10/16/2024 5:14 PM CDT us Balaji Bartlett MD POCT ORDERABLES - DEVICE Fin al Result [facility] [address] [place] [address], [phone] * (ABNORMAL) POCT ACUTE ARTERIAL PANEL (10/16/2024 12:12 PM CDT) SODIUM WHOLE BLOOD 138 138 - 146 mmol/L 10/16/2024 12:18 PM CDT [facility] POTASSIUM WHOLE BLOOD 5.1(H) 3.5 - 4.9 mmol/L 10/16/2024 12:18 PM CDT [facility] CA IONIZED WH BLOOD 1.25 1.12 - 1.32 mmol/L 10/16/2024 12:18 PM CDT [facility] POC PH ARTERIAL 7.408 7.35 - 7.45 10/16/2024 12:18 PM CDT [facility] POC PCO2 ARTERIAL 38.5 35.0 - 45.0 MMHG 10/16/2024 12:18 PM CDT [facility] POC PO2 ARTERIAL 72(L) 80 - 105 MMHG 10/16/2024 12:18 PM CDT [facility] POC HCO3 ARTERIAL 24.3 22 - 26 MMOL/L 10/16/2024 12:18 PM CDT [facility] POC TCO2 ARTERIAL 25 23 - 27 MMOL/L 10/16/2024 12:18 PM CDT [facility] POC BASE EXCESS ARTERIAL 0 0 - 3 MMOL/L 10/16/2024 12:18 PM CDT [facility] POC HEMATOCRIT 28(L) 38 - 51 % 10/16/2024 12:18 PM CDT [facility] TIME TEST WAS PERFORMED: 1212 10/16/2024 12:18 PM CDT [facility] 10/16/2024 12:1 2 PM CDT us Balaji Bartlett MD POCT ORDERABLES - DEVICE Fin al Result [facility] [address] [place] [address], [phone] * ECG 12 lead (10/16/2024 9:01 AM CDT) Only the most recent of7 resultswithin the time period is included. 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1975 Requested By: BALAJI WOODWARD Order Number: [id number] Reading : Beto Rosado Measurements Intervals [place] Rate: 123 P: 49 SD: 142 QRS: 8 QRSD: 85 T: 142 QT: 298 QTc: 427 Interpretive Statements SINUS TACHYCARDIA LOW QRS VOLTAGE IN PRECORDIAL LEADS [QRS DEFLECTION < 1.0 mV IN CHEST LEADS] ANTEROLATERAL MYOCARDIAL INFARCTION , OF INDETERMINATE AGE [40+ ms Q WAVE IN I/aVL/V3-V6] sway Procedure Note Beto Rosado MD - 10/16/2024 [place] [address] Test Date: 2024-10-16 Pat Name: CEM MARSHALL Department: 1 Room: [place] [address] Gender: Female 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1975 Requested By: BALAJI WOODWARD Order Number: [id number] Reading : Beto Rosado Measurements Intervals [place] Rate: 123 P: 49 SD: 142 QRS: 8 QRSD: 85 T: 142 QT: 298 QTc: 427 Interpretive Statements SINUS TACHYCARDIA LOW QRS VOLTAGE IN PRECORDIAL LEADS [QRS DEFLECTION < 1.0 mV IN CHESTLEADS] ANTEROLATERAL MYOCARDIAL INFARCTION , OF INDETERMINATE AGE [40+ ms Q WAVEIN I/aVL/V3-V6] sway us Balaji Bartlett MD ECG ORDERABLES Final Result Performing Organization Address City/[facility]/ZIP Co de Phone Number [facility] * STREP PNEUMO AG URINE (10/16/2024 7:00 AM CDT) S. PNEUMONIAE URINARY AG NEGATIVE NEGATIVE 10/17/2024 3:10 PM CDT [facility] Comment: PRESUMPTIVE NEGATIVE FOR PNEUMOCOCCAL PNEUMONIA, SUGGESTING NO CURRENT OR RECENT PNEUMOCOCCAL INFECTION. INFECTION DUE TO STREPTOCOCCUS PNEUMONIA CANNOT BE RULED OUT SINCE THE ANTIGEN PRESENT IN THE SAMPLE MAY BELOW THE DETECTION LIMIT OF THE TEST. SPECIMEN TYPE URINE CLEAN CATCH 10/15/2024 2:30 PM SALES OPERATIONS DIRECTOR [facility] URINE SPECIMEN OBTAINED BY CLEAN CATCH PROCEDURE / Unknown 10/16/2024 7:00 AM CDT us Balaji Bartlett MD MICROBIOLOGY - GENERAL ORDER JAROD Final Result Performing Organization Address City/[facility]/[place] Co de Phone Number [facility] [address] [place] [address], [place] [phone] * UREA NITROGEN URINE RANDOM (10/16/2024 7:00 AM CDT) UREA NITROGEN (U) 106 MG/DL 10/16/2024 8:30 AM CDT [facility] Comment:REFERENCE RANGE NOT ESTABLISHED URINE SPECIMEN / Unknown 10/16/2024 7:00 AM CDT us Balaji Bartlett MD URINE ORDERABLES Final Resul t Performing Organization Address City/[facility]/[place] Co de Phone Number [facility] [address] [place] [address], [place] [phone] * LEGIONELLA AG URINE (10/16/2024 7:00 AM CDT) LEGIONELLA ANTIGEN (URINE) NEGATIVE NEGATIVE 10/17/2024 3:10 PM CDT [facility] Comment: PRESUMPTIVE NEGATIVE FOR L. [...] MICROBIOLOGY - GENERAL ORDER JAROD Final Result [facility] [address] [place] [phone], [phone] * TRANSFUSE RED BLOOD CELLS (10/16/2024 5:26 AM CDT) Only the most recent of2 resultswithin the time period is included. Balaji Bartlett MD NURSING TREATMENT ORDERABLES - BLOOD ADMIN Final Result * XR CHEST PORTABLE (10/16/2024 4:40 AM CDT) Only the most recent of4 resultswithin the time period is included. Anatomical Region Laterality Modality Chest Radiographic Marya ging 10/16/2024 4:43 AM CDT Impressions 10/16/2024 4:44 AM CDT IMPRESSION: 1. NO SIGNIFICANT INTERVAL CHANGE. Signed: Joseph Doyle MD Referred By: LORENZA INMAN Interpreted By: Joseph Doyle MD, 10/16/2024 4:43 AM Narrative 10/16/2024 4:44 AM CDT [address] [address] PATIENT NAME: CEM MARSHALL EXAM: Chest one [...] Procedure Note Joseph Doyle MD - 10/16/2024 [facility] [address] [place], [place] [address] PATIENT NAME: CEM MARSHALL EXAM: Chest one [...] 7.1(H) <5.7 % 10/16/2024 5:33 AM CDT [facility] ESTIMATED AVG GLUCOSE 157(H) 74 - 114 MG/DL 10/16/2024 5:33 AM CDT [facility] 10/16/2024 4:00 AM CDT us Segundo Storm MD LABORATORY Final Result [facility] [address] [place] [address], [phone] * LACTIC ACID - SINGLE (10/16/2024 4:00 AM CDT) Only the most recent of3 resultswithin the time period is included. LACTIC ACID VENOUS 1.9 0.4 - 2.0 MMOL/L 10/16/2024 4:54 AM CDT [facility] 10/16/2024 4:00 AM CDT us Balaji Bartlett MD LABORATORY Final Result Performing Organization Address City/[facility]/ZIP Co de Phone Number [facility] [address] [place] [address], [place] [phone] * BLOOD TYPING, ABO AND RH (10/15/2024 8:00 PM SALES OPERATIONS DIRECTOR) Pathologist [facility] ABO/RH A POSITIVE 10/15/2024 8:43 PM SALES OPERATIONS DIRECTOR [facility] 10/15/2024 8:00 PM SALES OPERATIONS DIRECTOR us Balaji Bartlett MD BLOOD BANK TEST ORDERABLES F inal Result Performing Organization Address [facility]/[place] Co de Phone Number [facility] [address] [place] [address], [place] [phone] * (ABNORMAL) TROPONIN, QUANT (10/15/2024 8:00 PM SALES OPERATIONS DIRECTOR) Only the most recent of5 resultswithin the time period is included. Pathologist [facility] TROPONIN I HIGH SENSITIVITY 240(H) 0 - 53 ng/L 10/15/2024 8:51 PM SALES OPERATIONS DIRECTOR [facility] 10/15/2024 8:00 PM SALES OPERATIONS DIRECTOR us Balaji Bartlett MD LABORATORY Final Result Performing Organization Address [facility]/[place] Co de Phone Number [facility] [address] [place] [address], [place] [phone] * CT ABD+PEL WO CON (10/15/2024 6:00 PM SALES OPERATIONS DIRECTOR) Anatomical Region Laterality Modality Abdomen Computed Tomogra phy 10/15/2024 6:13 PM SALES OPERATIONS DIRECTOR Impressions 10/15/2024 6:26 PM SALES OPERATIONS DIRECTOR IMPRESSION: 1. New bibasilar multifocal pneumonia. 2. [...] 10/15/2024 6:13 PM Narrative 10/15/2024 6:26 PM SALES OPERATIONS DIRECTOR [address] [address] EXAMINATION: CT ABD+PEL WO CON DATE: 10/15/2024 [...] Procedure Note Christopher Flaherty MD - 10/15/[address] [address] EXAMINATION: CT ABD+PEL WO CON DATE: 10/15/2024 [...] (ABNORMAL) PRO-BRAIN NATRIURETIC PEPTIDE (10/15/2024 3:43 PM SALES OPERATIONS DIRECTOR) Only the most recent of2 resultswithin the time period is included. PRO-B TYPE NATRIURETIC PEPTIDE 11,053(H) <125 PG/ML 10/15/2024 4:32 PM SALES OPERATIONS DIRECTOR [facility] Comment: AGE INDEPENDENT: <300 [...] 72% FOR ACUTE CHF. 10/15/2024 3:43 PM SALES OPERATIONS DIRECTOR us Segundo Storm MD LABORATORY Final Result [facility] [address] [place] [address], [place] [phone] * TYPE & SCREEN (10/15/2024 3:43 PM SALES OPERATIONS DIRECTOR) Only the most recent of2 resultswithin the time period is included. UNITS ORDERED 1 10/16/2024 12:27 AM SALES OPERATIONS DIRECTOR [facility] ABO/RH A POSITIVE 10/15/2024 6:59 PM SALES OPERATIONS DIRECTOR [facility] ANTIBODY SCREEN NEGATIVE 6:59 PM SALES OPERATIONS DIRECTOR [facility] SAMPLE EXPIRATION 10/18/2024,2359 10/15/2024 3:57 PM SALES OPERATIONS DIRECTOR [facility] BLOOD UNIT NUMBER [id number] 10/16/2024 12:27 AM SALES OPERATIONS DIRECTOR [facility] PRODUCT: PC LEUKOPOOR 10/16/2024 12:27 AM SALES OPERATIONS DIRECTOR [facility] UNIT DIVISION 00 10/16/2024 12:27 AM SALES OPERATIONS DIRECTOR [facility] BLOOD UNIT STATUS TRANSFUSED,FINAL 10/17/2024 7:08 AM CDT [facility] ISSUE DATE/TIME [id number] 025 7:08 AM CDT [facility] PRODUCT CODE [id number] 10/17/2024 7:08 AM CDT [facility] ABO/RH Unit A POS 10/17/2024 7:08 AM CDT [facility] ABO/RH UNIT ISBT CODE 6200 10/17/2024 7:08 AM CDT [facility] BLOOD UNIT EXPIRATION DATE [id number] 10/17/2024 7:08 AM CDT [facility] TRANSFUSION STATUS OK TO TRANSFUSE 10/16/2024 12:27 AM SALES OPERATIONS DIRECTOR [facility] CROSSMATCH COMPATIBLE-EXM 10/16/2024 12:27 AM SALES OPERATIONS DIRECTOR [facility] 10/15/2024 3:43 PM SALES OPERATIONS DIRECTOR us Segundo Storm MD BLOOD BANK TEST ORDERABLES Fin al Result [facility] [address] [place] [address], [phone] * (ABNORMAL) HEPATIC FUNCTION PANEL (10/15/2024 3:43 PM SALES OPERATIONS DIRECTOR) BILIRUBIN TOTAL S/P/B 0.3 0.2 - 1.0 MG/DL 10/15/2024 4:32 PM SALES OPERATIONS DIRECTOR [facility] BILIRUBIN DIRECT S/P/B <0.1 0.0 - 0.2 MG/DL 10/15/2024 4:32 PM [facility] ALKALINE PHOSPHATASE S/P/B 117(H) 39 - 100 U/L 10/15/2024 4:32 PM SALES OPERATIONS DIRECTOR [facility] AST 18 15 - 37 U/L 10/15/2024 4:32 PM [facility] ALT 17 13 - 56 U/L 10/15/2024 4:32 PM SALES OPERATIONS DIRECTOR [facility] TOTAL PROTEIN S/P/B 6.8 6.4 - 8.2 G/DL 10/15/2024 4:32 PM [facility] ALBUMIN S/P/B 1.5(L) 3.4 - 5.0 G/DL 10/15/2024 4:32 PM SALES OPERATIONS DIRECTOR [facility] 10/15/2024 3:43 PM SALES OPERATIONS DIRECTOR Segundo Storm MD LABORATORY Final Result Performing Organization Address [facility] de Phone Number [facility] [address] [place] [address], [place] [phone] * (ABNORMAL) THYROID STIM HORMONE, TSH (10/15/2024 3:43 PM SALES OPERATIONS DIRECTOR) TSH 3.950(H) 0.358 - 3.740 uIU/ML 10/15/2024 4:32 PM SALES OPERATIONS DIRECTOR [facility] Comment: ASSAY PERFORMED BY CHEMILUMINESCENCE METHODOLOGY USING [employer] Digital [employer] (SDI) [facility] [employer]. PATIENT RESULTS DETERMINED BY ASSAYS USING DIFFERENT MANUFACTURERS FOR METHODS MAY NOT BE COMPARABLE. 10/15/2024 3:43 PM SALES OPERATIONS DIRECTOR Segundo Storm MD LABORATORY Final Result Performing Organization Address [facility] de Phone Number [facility] [address] [place] [address], [phone] * (ABNORMAL) CALCIUM, IONIZED (10/15/2024 3:43 PM SALES OPERATIONS DIRECTOR) Pathologist [facility] CALCIUM IONIZED 1.12(L) 1.15 - 1.33 MMOL/L 10/15/2024 3:55 PM SALES OPERATIONS DIRECTOR [facility] 10/15/2024 3:43 PM SALES OPERATIONS DIRECTOR Sgeundo Storm MD LABORATORY Final Result Performing Organization Address [facility] de Phone Number [facility] [address] [place] [address], [phone] * [employer] (10/15/2024 3:21 PM SALES OPERATIONS DIRECTOR) Anatomical Region Laterality Modality Renal Ultrasound 10/15/2024 3:41 PM SALES OPERATIONS DIRECTOR Impressions 10/15/2024 3:49 PM SALES OPERATIONS DIRECTOR Impression: 1. Normal appearance of the right [...] 10/15/2024 3:41 PM Narrative 10/15/2024 3:49 PM SALES OPERATIONS DIRECTOR [address] [address] Examination: [employer] RETROPERITONE[employer] L[employer] Exam Date/Time: 10/15/2024 [...] Procedure Note Christopher Flaherty MD - 10/15/[address] [address] Examination: [employer] RETROPERITONEAL L[employer] Exam Date/Time: 10/15/2024 [...] USE ECHOCARDIOGRAM W CON (10/15/2024 2:34 PM SALES OPERATIONS DIRECTOR) Anatomical Region Laterality Modality NA Echocardiogram 10/15/2024 1:54 PM SALES OPERATIONS DIRECTOR Narrative 10/16/2024 10:33 AM CDT Echocardiography Report Pat.Name: CEM MARSHALL Pat.ID: [id number] .Date: 10/15/2024 Refer.: [id number] LISSY Morley EWDPROV EWDPROV Exam Time: 1:54:00 PM Study Type:ECHO W/CONTRAST COMPLETE Height: 65 in Weight: 260 lb BSA: 2.21 m2 Age: 5 1975,48Y Sex: F BP: 93/65 HR: 120 bpm Sonogrphr: Adam Gregory RDCS Pat. Stat.:Inpatient Room: [place] [address] CPT - 4: C8929 Reason for Study:Hypoxia [...] Mass 2D Value 234 g LV Mass [id number] Value 106 g/m2 Right Ventricle Right Ventricle [...] 3.2 cm Right Ventricle 2.4 cm [place] 7.5 cm MMODE TA Tricuspid Annul 2.22 cm <Electronic Signature> 10/16/2024 10:33 AM Rose Conn M.D. Procedure Note Rose Conn MD - 10/16/2024 Echocardiography Report Pat.Name: CEM MARSHALL Pat.ID: [id number] .Date: 10/15/2024 Refer.: [id number] LISSY Morley EWDPROV EWDPROV Exam Time: 1:54:00 PM Study Type:ECHO W/CONTRAST COMPLETE Height: 65 in Weight: 260 lb BSA: 2.21 m2 Age: 5 1975,48Y Sex: F BP: 93/65 HR: 120 bpm Sonogrphr: Adam Gregory [facility] Pat. Stat.:Inpatient Room: [place] [address] CPT - 4: C8929 Reason for Study:Hypoxia [...] Mass 2D Value 234 g LV Mass [id number] Value 106 g/m2 Right Ventricle Right Ventricle [...] 3.2 cm Right Ventricle 2.4 cm [place] 7.5 cm MMODE TA Tricuspid Annul 2.22 cm <Electronic Signature> 10/16/2024 10:33 AM Rose Conn M.D. us Segundo Storm MD ECHO Final Result * CULTURE, RESPIRATORY W/ GRAM STAIN (10/15/2024 2:20 PM SALES OPERATIONS DIRECTOR) SPEC DESCRIPTION SPUTUM, INDUCED 10/15/2024 2:26 PM SALES OPERATIONS DIRECTOR [facility] SPECIAL REQUESTS NO SPECIAL REQUEST 10/15/2024 2:26 PM SALES OPERATIONS DIRECTOR [facility] GRAM STAIN RESULT <10 EPITHELIAL CELLS PER LPF 10/15/2024 3:23 PM SALES OPERATIONS DIRECTOR [facility] GRAM STAIN RESULT 10-25 NEUTROPHILS PER LPF 10/15/2024 3:23 PM SALES OPERATIONS DIRECTOR [facility] GRAM STAIN RESULT MANY GRAM POSITIVE RODS 10/15/2024 3:23 PM SALES OPERATIONS DIRECTOR [facility] GRAM STAIN RESULT MANY GRAM POSITIVE COCCI IN PAIRS, CHAINS, AND CLUSTERS 10/15/2024 3:23 PM SALES OPERATIONS DIRECTOR [facility] GRAM STAIN RESULT MODERATE BUDDING YEAST CELLS 10/15/2024 3:23 PM SALES OPERATIONS DIRECTOR [facility] GRAM STAIN RESULT FEW GRAM NEGATIVE RODS 10/15/2024 3:23 PM SALES OPERATIONS DIRECTOR [facility] CULTURE RESULT MANY MICROCOCCUS SPECIES 10/17/2024 9:22 AM CDT [facility] CULTURE RESULT FEW ALPHA STREPTOCOCCUS 10/17/2024 9:22 AM CDT [facility] CULTURE RESULT FEW YEAST 10/17/2024 9:22 AM CDT [facility] SPUTUM SPECIMEN OBTAINED BY SPUTUM INDUCTION / Unknown 10/15/2024 2:20 PM SALES OPERATIONS DIRECTOR 10/15/2024 2:38 PM SALES OPERATIONS DIRECTOR us Balaji Bartlett MD MICROBIOLOGY - GENERAL ORDER JAROD Final Result [facility] [address] [place] [address], [id number] * BIOFIRE PCR UPPER RESPIRATORY PROFILE (RESPIRATORY PCR PANEL 2) (10/15/2024 1:32 PM SALES OPERATIONS DIRECTOR) [facility] ADENOVIRUS PCR (RESP) NOT DETECTED NOT DETECTED 10/15/2024 2:49 PM SALES OPERATIONS DIRECTOR [facility] CORONAVIRUS 229E PCR (RESP) NOT DETECTED NOT DETECTED 10/15/2024 2:49 PM SALES OPERATIONS DIRECTOR [facility] CORONAVIRUS HKU1 PCR (RESP) NOT DETECTED NOT DETECTED 10/15/2024 2:49 PM SALES OPERATIONS DIRECTOR [facility] CORONAVIRUS NL63 PCR (RESP) NOT DETECTED NOT DETECTED 10/15/2024 2:49 PM SALES OPERATIONS DIRECTOR [facility] CORONAVIRUS OC43 PCR (RESP) NOT DETECTED NOT DETECTED 10/15/2024 2:49 PM SALES OPERATIONS DIRECTOR [facility] METAPNEUMOVIRUS PCR (RESP) NOT DETECTED NOT DETECTED 10/15/2024 2:49 PM SALES OPERATIONS DIRECTOR [facility] RHINOVIRUS/ENTEROV IRUS PCR (RESP) NOT DETECTED NOT DETECTED 10/15/2024 2:49 PM SALES OPERATIONS DIRECTOR [facility] INFLUENZA A PCR (RESP) NOT DETECTED NOT DETECTED 10/15/2024 2:49 PM SALES OPERATIONS DIRECTOR [facility] INFLUENZA B PCR (RESP) NOT DETECTED NOT DETECTED 10/15/2024 2:49 PM SALES OPERATIONS DIRECTOR [facility] PARAINFLUENZA 1 PCR (RESP) NOT DETECTED NOT DETECTED 10/15/2024 2:49 PM SALES OPERATIONS DIRECTOR [facility] PARAINFLUENZA 2 PCR (RESP) NOT DETECTED NOT DETECTED 10/15/2024 2:49 PM SALES OPERATIONS DIRECTOR [facility] PARAINFLUENZA 3 PCR (RESP) NOT DETECTED NOT DETECTED 10/15/2024 2:49 PM SALES OPERATIONS DIRECTOR [facility] PARAINFLUENZA 4 PCR (RESP) NOT DETECTED NOT DETECTED 10/15/2024 2:49 PM SALES OPERATIONS DIRECTOR [facility] RSV PCR (RESP) NOT DETECTED NOT DETECTED 10/15/2024 2:49 PM SALES OPERATIONS DIRECTOR [facility] B PARAPERTUSIS PCR (RESP) NOT DETECTED NOT DETECTED 10/15/2024 2:49 PM SALES OPERATIONS DIRECTOR [facility] BORDETELLA PERTUSSIS PCR (RESP) NOT DETECTED NOT DETECTED 10/15/2024 2:49 PM SALES OPERATIONS DIRECTOR [facility] CHLAMYDOPHILA PNEUMONIAE PCR (RESP) NOT DETECTED NOT DETECTED 10/15/2024 2:49 PM SALES OPERATIONS DIRECTOR [facility] MYCOPLASMA PNEUMONIAE PCR (RESP) NOT DETECTED NOT DETECTED 10/15/2024 2:49 PM SALES OPERATIONS DIRECTOR [facility] CORONAVIRUS SARS COV 2 PCR (RESP) NOT DETECTED NOT DETECTED 10/15/2024 2:49 PM SALES OPERATIONS DIRECTOR [facility] NASOPHARYNGEAL SWAB / Unknown 10/15/2024 1:32 PM SALES OPERATIONS DIRECTOR Balaji Bartlett MD MICROBIOLOGY - GENERAL ORDER JAROD Final Result Performing Organization Address [facility]/[place] Co de Phone Number [facility] [address] [place] [address], [id number] * MRSA SCREENING (10/15/2024 12:54 PM SALES OPERATIONS DIRECTOR) SPECIMEN SOURCE RESPIRATORY, NOSE 10/15/2024 12:53 PM SALES OPERATIONS DIRECTOR [facility] MRSA BY PCR NASAL METHICILLIN RESISTANT STAPH AUREUS NOT DETECTED METHICILLIN RESISTANT STAPH AUREUS NOT DETECTED 10/17/2024 11:28 AM CDT [facility] NASAL STRUCTURE / Unknown 10/15/2024 12:54 PM SALES OPERATIONS DIRECTOR Segundo Storm MD MICROBIOLOGY - GENERAL ORDERAB LES Final Result Performing Organization Address City/[facility]/[place] Co de Phone Number [facility] [address] [place] [address], [place] [phone] * CULTURE, URINE (10/15/2024 12:53 PM SALES OPERATIONS DIRECTOR) Only the most recent of3 resultswithin the time period is included. SPEC DESCRIPTION URINE CLEAN CATCH 10/15/2024 12:57 PM SALES OPERATIONS DIRECTOR [facility] SPECIAL REQUESTS NO SPECIAL REQUEST 10/15/2024 12:57 PM SALES OPERATIONS DIRECTOR [facility] CULTURE RESULT >25,000 TO 50,000 CFU/mL YEAST 10/18/2024 7:42 AM CDT [facility] URINE SPECIMEN OBTAINED BY CLEAN CATCH PROCEDURE / Unknown 10/15/2024 12:53 PM SALES OPERATIONS DIRECTOR 10/15/2024 6:41 PM SALES OPERATIONS DIRECTOR Segundo Storm MD MICROBIOLOGY - GENERAL ORDERAB LES Final Result Performing Organization Address [facility]/[place] Co de Phone Number [facility] [address] [place] [address], [id number] * CARDIAC PROFILE (CK,CKMB,TROP) (10/15/2024 9:20 AM SALES OPERATIONS DIRECTOR) CPK 33 26 - 192 U/L 10/15/2024 9:47 AM SALES OPERATIONS DIRECTOR [facility] CK-MB <1.0 0.5 - 3.6 NG/ML 10/15/2024 7:22 PM SALES OPERATIONS DIRECTOR [facility] TROPONIN I HIGH SENSITIVITY 41 0 - 51 ng/L 10/15/2024 9:47 AM SALES OPERATIONS DIRECTOR [facility] 10/15/2024 9:20 AM SALES OPERATIONS DIRECTOR Elida Ma NP LABORATORY Final Result Performing Organization Address [facility]/[place] Co de Phone Number [facility] [address] [place] [address], [place] [phone] [facility] [address] [place] [address], [phone] * (ABNORMAL) Blood gas, venous (10/15/2024 8:37 AM SALES OPERATIONS DIRECTOR) Only the most recent of2 resultswithin the time period is included. PH VENOUS 7.36 7.32 - 7.43 10/15/2024 8:53 AM SALES OPERATIONS DIRECTOR [facility] PCO2 VENOUS 49.0 MMHG 10/15/2024 8:53 AM [facility] Comment:NO REFERENCE RANGE H BEEN ESTABLISHED PO2 VENOUS <30.0 MM HG 10/15/2024 8:53 AM [facility] Comment:NO REFERENCE RANGE H BEEN ESTABLISHED TOTAL CO2 VENOUS 29.2(H) 22.0 - 26.0 MMOL/L 10/15/2024 8:53 AM SALES OPERATIONS DIRECTOR [facility] BASE EXCESS VENOUS 1.5 MMOL/L 10/15/2024 8:53 AM [facility] Comment:NO REFERENCE RANGE H BEEN ESTABLISHED O2 SAT VENOUS NOT CALCULATED % 025 8:53 AM SALES OPERATIONS DIRECTOR [facility] Comment:NO REFERENCE RANGE H BEEN ESTABLISHED BICARB VENOUS 27.7 22.0 - 29.0 MMOL/L 10/15/2024 8:53 AM [facility] O2 ADMIN VENOUS 5L 8:37 AM SALES OPERATIONS DIRECTOR [facility] 10/15/2024 8:37 AM SALES OPERATIONS DIRECTOR us Lorenza Inman MD LABORATORY Final Resu lt Performing Organization Address City/[facility]/ZIP Co de Phone Number [facility] [place] [address], * (ABNORMAL) IRON SAT PANEL (IRON,IBC,%SAT) (10/15/2024 4:24 AM SALES OPERATIONS DIRECTOR) IRON 33(L) 50 - 170 MCG/DL 10/15/2024 5:13 AM SALES OPERATIONS DIRECTOR [facility] IRON BINDING CAPACITY 197(L) 250 - 450 MCG/DL 10/15/2024 5:13 AM SALES OPERATIONS DIRECTOR [facility] IRON SATURATION 17 % 5:13 AM [facility] Comment:REFERENCE RANGE NOT ESTABLISHED 10/15/2024 4:24 AM SALES OPERATIONS DIRECTOR us Issa Blackman MD LABORATORY Final Result [facility] [address] [place] [address], * VITAMIN B-12 (10/15/2024 4:24 AM SALES OPERATIONS DIRECTOR) Pathologist [facility] VITAMIN B12 S/P/B 507 193 - 986 PG/ML 10/15/2024 2:10 PM SALES OPERATIONS DIRECTOR [facility] 10/15/2024 4:24 AM SALES OPERATIONS DIRECTOR Issa Blackman MD LABORATORY Final Result Performing Organization Address [facility]/ZIP Co de Phone Number [facility] [address] [place] [address], [place] [phone] * (ABNORMAL) RETICULOCYTE CT, AUTO (10/15/2024 4:24 AM SALES OPERATIONS DIRECTOR) [facility] RETICULOCYTE COUNT 6.4(H) 0.6 - 2.3 % 10/15/2024 5:01 AM SALES OPERATIONS DIRECTOR [facility] ABSOLUTE RETICULOCYTE 0.15(H) 0.02 - 0.10 x10'6/uL 10/15/2024 5:01 AM [facility] IMMATURE RETIC FRACTION 32.8(H) 3.0 - 15.9 % 10/15/2024 5:01 AM [facility] RETIC HGB 24.2(L) 28.0 - 35.0 PG 10/15/2024 5:01 AM SALES OPERATIONS DIRECTOR [facility] 10/15/2024 4:24 AM SALES OPERATIONS DIRECTOR Issa Blackman MD LABORATORY Final Result Performing Organization Address City/[facility]/ZIP Co de Phone Number [facility] [address] [place] [address], [place] [phone] * (ABNORMAL) COMPREHENSIVE METABOLIC PANEL (10/15/2024 4:24 AM SALES OPERATIONS DIRECTOR) Only the most recent of4 resultswithin the time period is included. Pathologist [facility] SODIUM S/P/B 138 136 - 145 MMOL/L 10/15/2024 4:49 AM [facility] POTASSIUM S/P/B 4.8 3.5 - 5.1 MMOL/L 10/15/2024 4:49 AM [facility] CHLORIDE S/P/B 104 98 - 107 MMOL/L 10/15/2024 4:49 AM [facility] CO2 27.4 21.0 - 32.0 MMOL/L 10/15/2024 4:49 AM [facility] GLUCOSE 175(H) 70 - 99 MG/DL 10/15/2024 4:49 AM [facility] Comment: FASTING GLUCOSE 100 TO 125 MG/DL IS CONSISTENT WITH IMPAIRED FASTING GLUCOSE. FASTING GLUCOSE >125 MG/DL IS CONSISTENT WITH DIABETES. RANDOM GLUCOSE >200 MG/DL WITH HYPERGLYCEMIC SYMPTOMS IS CONSISTENT WITH DIABETES. PER ADA GUIDELINES BUN 38(H) 6 - 24 MG/DL 10/15/2024 4:49 AM [facility] CREATININE S/P/B 1.80(H) 0.55 - 1.02 MG/DL 10/15/2024 4:49 AM [facility] CALCIUM S/P/B 8.2(L) 8.4 - 10.5 MG/DL 10/15/2024 4:49 AM [facility] BILIRUBIN TOTAL S/P/B 0.2 0.2 - 1.0 MG/DL 10/15/2024 4:49 AM [facility] Comment: THIS ASSAY IS NOT RECOMMENDED FOR PATIENTS UNDERGOING TREATMENT WITH ELTROMBOPAG DUE TO THE POTENTIAL FOR FALSELY ELEVATED RESULTS. ALKALINE PHOSPHATASE S/P/B 115(H) 39 - 100 U/L 10/15/2024 4:49 AM [facility] AST 12(L) 15 - 37 U/L 10/15/2024 4:49 AM [facility] ALT 20 14 - 59 U/L 10/15/2024 4:49 AM [facility] TOTAL PROTEIN S/P/B 6.4 6.4 - 8.2 G/DL 10/15/2024 4:49 AM SALES OPERATIONS DIRECTOR [facility] ALBUMIN S/P/B 1.4(L) 3.4 - 5.0 G/DL 10/15/2024 4:49 AM SALES OPERATIONS DIRECTOR [facility] ANION GAP 6.6 5.0 - 15.0 MMOL/L 10/15/2024 4:49 AM SALES OPERATIONS DIRECTOR [facility] OSMOLALITY (CALC) 299 MOSM/KG 025 4:49 AM SALES OPERATIONS DIRECTOR [facility] Comment:REFERENCE RANGE NOT ESTABLISHED GFR ESTIMATE 34(L) >89 ML/MIN/1. 73 M2 10/15/2024 4:49 AM SALES OPERATIONS DIRECTOR [facility] GFR NOTES GFR REFERENCE S: 10/15/2024 4:49 AM SALES OPERATIONS DIRECTOR [facility] Comment: THE ESTIMATED GFR [...] FAILURE: <15 ml/min/1.73 m2 10/15/2024 4:24 AM SALES OPERATIONS DIRECTOR us Matt iMxon DO LABORATORY Final Result [facility] [address] [place] [address], * FOLIC ACID SERUM (10/15/2024 4:24 AM SALES OPERATIONS DIRECTOR) FOLATE 6.9 3.1 - 17.5 NG/ML 10/15/2024 2:10 PM SALES OPERATIONS DIRECTOR [facility] 10/15/2024 4:24 AM SALES OPERATIONS DIRECTOR us Issa Blackman MD LABORATORY Final Result [facility] [address] [place] [address], [place] [phone] * FERRITIN (10/15/2024 4:24 AM SALES OPERATIONS DIRECTOR) FERRITIN 195.2 8 - 252 NG/ML 10/15/2024 5:27 AM SALES OPERATIONS DIRECTOR [facility] 10/15/2024 4:24 AM SALES OPERATIONS DIRECTOR Issa Blackman MD LABORATORY Final Result Performing Organization Address City/[facility]/ZIP Co de Phone Number [facility] [address] [place] [address], [place] [phone] * IV PLACEMENT (10/14/2024 7:00 PM SALES OPERATIONS DIRECTOR) Narrative Jeffery Escobar CRNA - 10/14/2024 7:00 PM SALES OPERATIONS DIRECTOR Jeffery Escobar CRNA 10/14/2024 7:21 PM Peripheral [...] Patient Tolerance: Tolerated well us Jeffery Escobar ROLLER COASTER OPERATOR SD ANESTHESIA Final Res ult * XR CHEST PA+LAT (10/14/2024 5:26 PM SALES OPERATIONS DIRECTOR) Anatomical Region Laterality Modality Chest Radiographic Marya ging 10/14/2024 5:26 PM SALES OPERATIONS DIRECTOR Impressions 10/14/2024 5:27 PM SALES OPERATIONS DIRECTOR Impression: 1. Nonspecific left basilar opacity. 2. Pulmonary vascular congestion. Referred By: Interpreted By: Tyron Fitzgerald MD, 10/14/2024 5:26 PM Narrative 10/14/2024 5:27 PM SALES OPERATIONS DIRECTOR [address] [place] [address] Examination: Chest 2 View History: Shortness of [...] Procedure Note Tyron Fitzgerald MD - 10/14/[address] [place] [address] Examination: Chest 2 View History: Shortness of [...] By: Tyron Fitzgerald MD, 10/14/2024 5:26 PM Matt Mixon DO GENERAL IMAGING Final Result * (ABNORMAL) ARTERIAL BLOOD GAS (10/14/2024 4:56 PM SALES OPERATIONS DIRECTOR) Only the most recent of3 resultswithin the time period is included. PH ARTERIAL 7.41 7.35 - 7.45 10/14/2024 5:01 PM SALES OPERATIONS DIRECTOR [facility] PCO2 41.0 35.0 - 45.0 MMHG 10/14/2024 5:01 PM SALES OPERATIONS DIRECTOR [facility] PO2 85.0 83 - 108 MMHG 10/14/2024 5:01 PM SALES OPERATIONS DIRECTOR [facility] TOTAL CO2 ARTERIAL 27.3(H) 19.0 - 24.0 MMOL/L 10/14/2024 5:01 PM [facility] BASE EXCESS 1.2 0 - 3 MMOL/L 10/14/2024 5:01 PM [facility] O2 SATURATION 97 94.0 - 98.0 % 10/14/2024 5:01 PM SALES OPERATIONS DIRECTOR [facility] BICARB ARTERIAL 26.0 21.0 - 28.0 MMOL/L 10/14/2024 5:01 PM SALES OPERATIONS DIRECTOR [facility] SILVIA TEST OK 10/14/2024 4:56 PM SALES OPERATIONS DIRECTOR [facility] O2 ADMIN ARTERIAL 2L NC 10/14/2024 4:56 PM SALES OPERATIONS DIRECTOR [facility] DRAW SITE ARTERIAL RT RADIAL 10/14/2024 4:56 PM SALES OPERATIONS DIRECTOR [facility] 10/14/2024 4:56 PM SALES OPERATIONS DIRECTOR us Matt Mixon [place] [address], * (ABNORMAL) BETA-HYDROXYBUTYRATE (09/12/2024 9:06 PM SALES OPERATIONS DIRECTOR) Pathologist [facility] BETA-HYDROXYBU TYRATE 5.1(H) 0.0 - 0.3 MMOL/L 09/12/2024 9:13 PM SALES OPERATIONS DIRECTOR [facility] 09/12/2024 9:06 PM SALES OPERATIONS DIRECTOR us Chad Vazquez DO LABORATORY Final Result [facility] [place] [address], * PARTIAL THROMBOPLASTIN TIME,PTT (09/12/2024 8:20 PM SALES OPERATIONS DIRECTOR) Only the most recent of5 resultswithin the time period is included. PTT 34.3 25.1 - 36.5 SEC 09/12/2024 8:35 PM SALES OPERATIONS DIRECTOR [facility] 09/12/2024 8:20 PM SALES OPERATIONS DIRECTOR us Malena Cortez MD LABORATORY Final Resul t [facility] [address] [place] [address], * CT HEAD WO CON (09/12/2024 6:27 PM SALES OPERATIONS DIRECTOR) Anatomical Region Laterality Modality Head Computed Tomogra phy 09/12/2024 6:54 PM SALES OPERATIONS DIRECTOR Impressions 09/12/2024 6:58 PM SALES OPERATIONS DIRECTOR IMPRESSION: No definite CT evidence for acute intracranial abnormality. Please note that CT has limited sensitivity for the detection of acute ischemia. Referred By: Interpreted By: Tyron Fitzgerald MD, 09/12/2024 6:54 PM Narrative 09/12/2024 6:58 PM SALES OPERATIONS DIRECTOR [place] [id number] [facility] [place] [address] EXAMINATION: CT of the head CLINICAL HISTORY: [...] Procedure Note Tyron Fitzgerald MD - 09/12/2024 [facility] [address] [place] [address] EXAMINATION: CT of the head CLINICAL HISTORY: [...] By: Tyron Fitzgerald MD, 09/12/2024 6:54 PM us Chad Vazquez DO CT Final Result * CT CHEST+ABD+PEL WO CON (09/11/2024 1:56 PM SALES OPERATIONS DIRECTOR) Anatomical Region Laterality Modality Chest, Abdomen, Pelvis Computed Tomography 09/11/2024 2:02 PM SALES OPERATIONS DIRECTOR Impressions 09/11/2024 2:24 PM SALES OPERATIONS DIRECTOR IMPRESSION: 1. Scattered small bilateral groundglass infiltrates, likely infectious/inflammatory. Follow-up in 3-6 months for surveillance is suggested. 2. Otherwise, no acute intrathoracic, intra-abdominal or intrapelvic process identified. 3. Coronary artery disease. 4. Cholelithiasis. Referred By: Interpreted By: Jeffery Prado MD, 09/11/2024 2:02 PM Narrative 09/11/2024 2:24 PM SALES OPERATIONS DIRECTOR [place] [id number] [facility] [place] [address] Examination: CT of the chest, abdomen and [...] Procedure Note Jeffery Prado MD - 09/11/2024 [facility] [address] [place] [address] Examination: CT of the chest, abdomen and [...] ACID W REFLEX (SEPSIS) (09/11/2024 1:39 PM SALES OPERATIONS DIRECTOR) LACTIC ACID VENOUS 1.2 0.4 - 2.0 MMOL/L 09/11/2024 2:08 PM SALES OPERATIONS DIRECTOR [facility] 09/11/2024 1:39 PM SALES OPERATIONS DIRECTOR Malena Cortez MD LABORATORY Final Resul t [facility] [address] [place] [address], * LIPID PANEL (09/15/2023 9:04 AM SALES OPERATIONS DIRECTOR) CHOLESTEROL 181 MG/DL 09/15/2023 12:44 PM SALES OPERATIONS DIRECTOR [facility] Comment:DESIRABLE: <200 TRIGLYCERIDES 196 MG/DL 09/15/2023 12:44 PM SALES OPERATIONS DIRECTOR [facility] Comment:150-199 BORDERLINE H IGH HDL 55 >49 MG/DL 09/15/2023 12:44 PM SALES OPERATIONS DIRECTOR [facility] LDL-C 87 MG/DL 09/15/2023 12:44 PM SALES OPERATIONS DIRECTOR [facility] Comment:<100 OPTIMAL VLDL CALCULATION 39 MG/DL 09/15/19 12:44 PM SALES OPERATIONS DIRECTOR [facility] Comment:REFERENCE RANGE NOT ESTABLISHED CHOL/HDL RATIO 3.3 09/15/2023 12:44 PM SALES OPERATIONS DIRECTOR [facility] Comment:REFERENCE RANGE NOT ESTABLISHED LDL/HDL 1.6 09/15/2023 12:44 PM SALES OPERATIONS DIRECTOR [facility] Comment:REFERENCE RANGE NOT ESTABLISHED NON HDL CHOLESTEROL 126 MG/DL 09/15/2023 12:44 PM SALES OPERATIONS DIRECTOR [facility] Comment:REFERENCE RANGE NOT ESTABLISHED 09/15/2023 9:04 AM SALES OPERATIONS DIRECTOR Rose Conn MD LABORATORY Final Result [facility] [address] [place] [address], [phone] from Last 3 Months or Most Recently Relevant to Health Maintenance Additional Health Concerns Infection Onset Date Last Indicated MRSA Comment:Added from external infection. Source: [place], [place] [employer]. 12/24/2017 Insurance [facility] MEDICAID Advance Directives * POLST (Latest Code [...] 10:10 PM 10/15/2024 12:14 PM Care Teams Body Wirer Relationship Specialty Start Date End Date Ace Honeycutt MD [address] [place] [address] [phone] PCP - General FAMILY PRACTICE 04/29/24 Rose Conn MD [address] [place], [place] [id number] Consulting Physician CARDIOVASCULAR DISEASE 09/07/23 Keith Goodwin MD [address] [place], [place] [address] Consulting Physician INTERNAL MEDICINE 09/22/23
--- OUTSIDE RECORDS SUMMARY | 2024-12-08 16:10 | XMS_ITS | Continuity of Care Document ---
Author Organization [facility] Address [id number] [place] [address] [address] [place] [address] Phone Care Team Providers Care Dry Room Attendant Name Role Phone Puneet CUNNINGHAM MD, Josh Unavailable Unavailab le Procedures Procedure Date POSTOP FOLLOW-UP VISIT CATARACT SURG W/IOL, 1 STAGE CATARACT SURG W/IOL, 1 STAGE OFFICE/OUTPATIENT VISIT, [facility] Advance Directives Directive Yes / No Effective Date File Name No Information Encounters Encounter Description Practice Location Reason(s) For Visit Diagnoses Date Provider Providers Copied on Encounter [facility], [address] [facility] [facility] [address], [place], [place], [id number], tel:[phone] [facility] No Information 4 Puneet Moreno. [address], [place], [place], [id number] , [place]. tel:[phone] Referring Provider: Josh Teixeira MD P, [address], [place], [address] . tel:[phone] [facility], [address], [place], [place], [id number], [place] tel:[phone] [facility] No Information 4 Puneet Moreno. [address], [place], [place], [address] , [place]. [phone] Referring Provider: Josh Watkins, [address], [place], [address] . tel:[phone] [facility], [address] [facility] [address], [place], [place], [address], tel:[phone] [facility] No Information 3 Puneet Moreno. [address], [place], [place], [address] , [place]. tel:[phone] Referring Provider: Josh Teixeira MD P, [address], [place], [address] . tel:[phone] OFFICE/OUTPAT IENT VISIT, [facility], [address] [facility] [address], [place], [place], [address], tel:[phone] [facility] No Information 3 Puneet Moreno. [address], [place], [place], [address] , [place]. tel:[phone] Referring Provider: Josh Watkins, [address], [place], [address] . tel:[phone] Family History Family Member Type Diagnosis Age [...]
== END 2024-12-08 16:03 | disposition home or self-care (01) ==
LOC: CHSIMG 16:04
PROVIDERS: PCP Physician Assistant; Visit Provider Family Medicine
DX: J22 Unspecified acute lower respiratory infection (principal)
CPT/HCPCS: 71046

== ENCOUNTER 2024-12-19 16:35 | Emergency (ER) | payer MEDICARE, MEDICAID, SELFPAY ==
[2024-12-19] VITALS (13 sets, daily range): BP systolic 118–122; BP diastolic 56–70; PULSE 100–108; RESP 17–26; TEMP 36.5–36.9; O2SAT 92–98
--- NOTE | ~2024-12-19 | XR_ITS ---
EXAMINATION: XR chest 1V portable Exam Date/Time: 12/19/2024 17:20 CDT HISTORY: SHORTNESS OF BREATH Comparison: 12/08/2024. RESULT: Lines, tubes, and devices: None. Lungs and pleura: Minimal subsegmental basilar opacities. Mild left SI canal blunting. Cardiomediastinal silhouette: Stable. Other: No acute osseous or upper abdominal finding. IMPRESSION: Subsegmental bibasilar atelectasis/consolidation. Possible trace left pleural effusion versus promine nt pericardial fat pad or chronic blunting. Reviewed, dictated and finalized at location K. IMPRESSION: Subsegmental bibasilar atelectasis/consolidation. Possible trace left pleural e ffusion versus prominent pericardial fat pad or chronic blunting.
--- NOTE | 2024-12-19 16:55 | ED.GENADULT ---
HPI - General Adult General Chief complaint: Extremity Problem,Nontraumatic Stated complaint: bilateral leg edema Time Seen by Provider: 12/19/24 16:54 Source: patient History of Present Illness HPI narrative: 49 YEARS OLD WHITE FEMALE CAME TO THE ED FROM HOME BY PRIVATE CAR COMPLAINING OF SHORTNESS OF BREATH , WEIGHT GAIN, LOWER EXTREMITY SWELLING FOR WEEKS, WAS DISCHARGED FROM [facility] November WITH DIAGNOSIS OF CONGESTIVE HEART FAILURE. PATIENT IS TELLING ME THAT HER FAMILY PHYSICIAN TOLD HER TO GO TO THE ED TO GET SOME LASIX IV VEIN GO HOME. HISTORY OF DIABETES, CHF, CVA ON CHRONIC OSHEA CATHETER FOR URINARY INCONTINENCE PATIENT HAD A NEW PRESCRIPTION OF DIURETICS WAS PRESCRIBED 4 DAYS AGO, COULD NOT GET IT AT THAT TIME, GOT TODAY BUT DID NOT TAKE IT YET. PATIENT ON HOME OXYGEN AT NIGHT. AND NEEDED Related Data Home Medications ?Medication ?Instructions ?Recorded ?Confirmed ?Last Taken ?Type atorvastatin 80 mg tablet 80 mg PO DAILY 07/26/23 10/29/24 10/28/24 History bumetanide 1 mg tablet See Rx Instructions .Route .COMPLEX 07/26/23 10/29/24 10/28/24 History celecoxib 200 mg capsule 200 mg PO BID 07/26/23 10/29/24 10/28/24 History insulin detemir U-100 100 unit/mL 46 unit subcut DAILY 07/26/23 10/29/24 10/28/24 History subcutaneous solution (Levemir U-100 Insulin) insulin lispro 100 unit/mL See Rx Instructions .Route .COMPLEX 07/26/23 10/29/24 10/28/24 History subcutaneous solution (Humalog U-100 Insulin) metoprolol succinate 25 mg 25 mg PO DAILY 07/26/23 10/29/24 10/28/24 History tablet,extended release 24 hr ezetimibe 10 mg tablet 10 mg PO DAILY 10/29/23 10/29/24 10/28/24 History gabapentin 400 mg capsule See Rx Instructions .Route .COMPLEX 10/29/23 10/29/24 10/28/24 History albuterol sulfate 5 mg/mL(0.5 %) 2.5 mg inhalation Q6H PRN 10/30/24 10/30/24 Unknown History solution for nebulization shortness of breath or wheezing cyclobenzaprine 10 mg tablet 10 mg PO TID 10/30/24 10/30/24 Unknown History famotidine 20 mg tablet 20 mg PO Q12H 10/30/24 10/30/24 Unknown History hydrocodone 10 mg-acetaminophen 1 tablet PO BID PRN pain 10/30/24 10/30/24 Unknown History 325 mg tablet plecanatide 3 mg tablet (Trulance) 3 mg PO DAILY 10/30/24 10/30/24 Unknown History potassium chloride 20 mEq 20 meq PO DAILY 10/30/24 10/30/24 Unknown History tablet,extended release(part/cryst) tirzepatide 2.5 mg/0.5 mL 2.5 mg subcut WEEKLY 10/30/24 10/30/24 10/27/24 History subcutaneous pen injector (Mounjaro) Allergies Allergy/AdvReac Type Severity Reaction Status Date / Time cephalexin (From Keflex) Allergy Unknown Unknown Verified 12/06/24 16:36 codeine Allergy Unknown Verified 12/06/24 16:36 erythromycin base Allergy Unknown Verified 12/06/24 16:36 Review of Systems Review of Systems: All systems reviewed & are unremarkable except as noted in HPI and below PMFSH Past Medical History Medical History TIA (transient ischemic attack) Dyslipidemia Diabetes mellitus Social History Social History Smoking packs per day: 1 Smoking cigarettes per day: 20.0 Smoking status: Current every day smoker Alcohol intake: never Substance use: never Do You Feel Safe in your Home?: Yes Lack of Transportation: No Lack of Food: Never True Current Housing: I Have Housing Concerned About Future Housing: No Difficulty Paying Gas/Electric Bills: No Difficulty Paying for Meds: No Currently Unemployed: No Education: High School Diploma/GED Difficulty w/ Childcare or Family Care: No Spiritual care concerns: No Exam Narrative: GENERAL APPEARANCE: WELL-DEVELOPED, WELL-NOURISHED SKIN: NORMAL COLOR, 2+ EDEMA LOWER EXTREMITY BILATERALLY HEAD: NORMOCEPHALIC, NONTRAUMATIC EYES: CLEAR CONJUNCTIVA ENT: OROPHARYNX NORMAL, EARS NORMAL, NOSE NORMAL NECK: SUPPLE, NONTENDER CHEST AND RESPIRATORY: AIRWAY PATENT, NO RESPIRATORY DISTRESS, NO ACCESSORY MUSCLE USE, BASAL RALES BILATERALLY HEART: REGULAR RATE/RHYTHM ABDOMEN: SOFT, NONTENDER, NO ORGANOMEGALY, QUIET BOWEL SOUNDS VASCULAR: NORMAL PERIPHERAL PULSES, NORMAL CAPILLARY REFILL. MUSCULOSKELETAL: NORMAL RANGE OF MOTION, NONTENDER BACK NEUROLOGIC: ALERT AND ORIENTED ?3, PLACEMENT INTERVIEWER IS NORMAL TESTED, NO GROSS MOTOR DEFICIT Course Vital Signs Vital signs: Vital Signs Temperature 36.5 C 12/19/24 16:35 Pulse Rate 108 H 12/19/24 16:35 Respiratory Rate 20 12/19/24 16:35 Blood Pressure 118/67 12/19/24 16:35 Pulse Oximetry 96 12/19/24 16:35 Oxygen Delivery Room Air 12/19/24 16:35 Temperature 36.5 C 12/19/24 16:35 Pulse Rate 108 H 12/19/24 18:53 Respiratory Rate 26 H 12/19/24 18:53 Blood Pressure 121/67 12/19/24 18:53 Pulse Oximetry 96 12/19/24 18:53 Oxygen Delivery Room Air 12/19/24 17:00 Medical Decision Making MDM Narrative Medical decision making narrative: PATIENT CAME WITH SHORTNESS OF BREATH, HISTORY OF CHF VITAL SIGNS SHOWING A HEART RATE OF 108 OTHERWISE WITHIN NORMAL LIMIT PHYSICAL EXAMINATION CONSISTENT WITH BASILAR RALES BILATERALLY AND 2+ LOWER EXTREMITY EDEMA, NO OBVIOUS SHORTNESS OF BREATH AT REST. DIFFERENTIAL DIAGNOSIS INCLUDE CHF, CORONARY ARTERY DISEASE, PLEURAL EFFUSION, PNEUMONIA. BLOOD WORKUP TODAY INCLUDES CBC, CMP, TROPONIN, PROBNP AND COAGS SHOWED HEMOGLOBIN 10.6, BN 54, CREATININE 1.3, GLUCOSE 283, PRO BMP 2810 WHICH IS MUCH LESS COMPARED TO THE PREVIOUS READING CHEST X-RAY SHOWED NO ACUTE ABNORMALITY EKG SHOWED SINUS TACHYCARDIA AT 104 BEATS PER MINUTE ABG SHOWING OXYGENATION 91 POINT 9 ON ROOM AIR. PATIENT DOES HAVE OXYGEN AT HOME USE IT AT NIGHT AND NEEDED. PATIENT WAS ADVISED TO USE HER OXYGEN DURING ANY PHYSICAL ACTIVITIES AND HAVING BOWEL MOVEMENTS. PATIENT WAS ADVISED TO START THE NEW DIURETICS SOON POSSIBLE AND CONTACT HER FAMILY PHYSICIAN FOR FURTHER EVALUATION. DIAGNOSIS HISTORY OF CONGESTIVE HEART FAILURE THE PT WAS DISCHARGED TO HOME.THE PT,S CONDITION UPON DISCHARGE WAS FAIR,EDUCATION WAS PROVIDED TO THE PT IN REFERENCE TO THE FINAL IMPRESSION,DISCHARGE STUDY RESULTS,TREATMENT,PROGNOSIS AND NEED FOR FOLLOW UP . Differential Diagnosis Differential Diagnosis: ABOVE Vital Signs Vital Signs: Vital Signs Temperature 36.5 C 12/19/24 16:35 Pulse Rate 108 H 12/19/24 16:35 Respiratory Rate 20 12/19/24 16:35 Blood Pressure 118/67 12/19/24 16:35 Pulse Oximetry 96 12/19/24 16:35 Oxygen Delivery Room Air 12/19/24 16:35 Temperature 36.5 C 12/19/24 16:35 Pulse Rate 108 H 12/19/24 18:53 Respiratory Rate 26 H 12/19/24 18:53 Blood Pressure 121/67 12/19/24 18:53 Pulse Oximetry 96 12/19/24 18:53 Oxygen Delivery Room Air 12/19/24 17:00 Lab Data 12/19/24 17:18 12/19/24 17:18 Labs: Lab Results 12/19/24 12/19/24 Range/Units 17:09 17:18 WBC 6.4 (4.8-10.8) K/mm3 RBC 3.89 L (4.20-5.40) M/mm3 Hgb 10.6 L (12.0-15.0) g/dL Hct 35.2 (35.0-49.0) % MCV 90.5 (78.0-102.0) fL MCH 27.2 (27.0-31.0) pg MCHC 30.1 L (32-36) g/dL RDW 15.4 H (11.6-14.4) % Plt Count 209 (150-420) K/mm3 MPV 10.6 (9.2-11.8) fl Immature Gran % (Auto) 0.5 H (0.0-0.0) % Neut % (Auto) 66.9 (50.0-70.0) % Lymph % (Auto) 20.9 (18.0-42.0) % [place] % (Auto) 7.6 (2.0-11.0) % Eos % (Auto) 3.5 (1.0-6.0) % Baso % (Auto) 0.6 (0.0-1.0) % Lymph # (Auto) 1.33 (1.10-4.50) K/mm3 [place] # (Auto) 0.48 (0.10-0.90) K/mm3 Eos # (Auto) 0.22 (0.02-0.50) K/mm3 Baso # (Auto) 0.04 (0.00-0.10) K/mm3 Abs Immat Gran (auto) 0.03 H (0.00-0.00) K/mm3 Absolute Neuts (auto) 4.25 (1.70-7.20) K/mm3 Absolute Nucleated RBC 0.00 (0.00-0.00) K/mm3 Nucleated RBC % 0.0 (0-0.0) % PT 10.9 (9.50-12.1) Seconds INR 1.0 APTT 30.4 (23.9-30.70) Sec Sodium 137 (137-145) mmol/L Potassium 4.4 (3.4-5.0) mmol/L Chloride 101 (98-107) mmol/L Carbon Dioxide 28 (22-30) mmol/L Anion Gap 8 (4-12) mmol/L BUN 54 H D (7-17) mg/dL Creatinine 1.39 H (0.7-1.0) mg/dL Estim Creat Clear Calc Not Reportable Estimated GFR 40 L (59 - ) Glucose 283 H (65-110) mg/dL Calculated Osmolality 308 H (285-295) mOsm/kg Calcium 8.8 (8.4-10.2) mg/dL Total Bilirubin 0.4 (0.2-1.3) mg/dL AST 45 H (14-36) U/L ALT 32 (6-35) U/L Alkaline Phosphatase 231 H (38-126) U/L Troponin I 0.013 (0.000-0.034) ng/mL NT-Pro-B Natriuret Pep Cancelled 2810 H Total Protein 7.3 (6.3-8.2) g/dL Albumin 3.6 (3.5-5.1) g/dL ABG Data ABG results: 12/19/24 17:18 Puncture Site Left radial ABG pH 7.41 ABG pCO2 42.4 ABG pO2 64.6 L ABG HCO3 26.2 ABG O2 Saturation 91.9 L ABG Base Excess 1.4 Oxyhemoglobin 87.3 L O2 Delivery Device Room air O2 Liters/Min Not Reportable Imaging Data Radiologist's impression: Impressions Chest X-Ray 12/19/24 17:42 IMPRESSION: Subsegmental bibasilar atelectasis/consolidation. Possible trace left pleural effusion versus prominent pericardial fat pad or chronic blunting. ECG Data EKG #1: Attestation: I personally reviewed and interpreted this ECG as follows: ECG completion date: 12/19/24 Interpretation: SINUS TACHYCARDIA AT 104 BEATS PER MINUTE, ANTERIORMYOCARDIAL INFARCTION OF INDETERMINATE AGE, Critical Care Time Critical Care Time Critical Care Time: No Discharge Plan Discharge Clinical Impression: CHF (congestive heart failure) Patient Disposition: Home Condition: Stable Instructions: Heart Failure (DC) Additional Instructions: RETURN IF SYMPTOMS ARE WORSENING , CALL YOUR FAMILY PHYSICIAN FOR APPOINTMENT, TAKE TYLENOL NEEDED FOR ACHES AND PAIN, CONTINUE HOME MEDICATIONS. Patient Language: Puerto Rican Prescriptions: No Action gabapentin 400 mg capsule See Rx Instructions .ROUTE .COMPLEX Rx Instructions: Take 1 capsule in the morning Take 1 capsule in the afternoon Take 3 capsules at bedtime ezetimibe 10 mg tablet 10 mg PO DAILY celecoxib 200 mg Capsule 200 mg PO BID atorvastatin 80 mg Tablet 80 mg PO DAILY bumetanide 1 mg Tablet See Rx Instructions .ROUTE .COMPLEX Patient Comments: 2 mg three times a day Rx Instructions: 2 mg three times a day metoprolol succinate 25 mg Tablet Extended Release 24 Hr 25 mg PO DAILY insulin lispro [Humalog U-100 Insulin] 100 unit/mL Solution See Rx Instructions .ROUTE .COMPLEX Rx Instructions: 8 units + SSI TID c meals Levemir U-100 Insulin 100 unit/mL Solution 46 unit SUBCUT DAILY docusate sodium [Colace] 100 mg capsule 100 mg PO BID PRN (Reason: constipation) Qty: 14 0RF albuterol sulfate 5 mg/mL solution for nebulization 2.5 mg inhalation Q6H PRN (Reason: shortness of breath or wheezing) cyclobenzaprine 10 mg tablet 10 mg PO TID famotidine 20 mg tablet 20 mg PO Q12H hydrocodone-acetaminophen 10-325 mg tablet 1 tablet PO BID PRN (Reason: pain) Patient Comments: Usually just takes at bedtime. Trulance 3 mg tablet 3 mg PO DAILY potassium chloride 20 mEq tablet,ER particles/crystals 20 meq PO DAILY Mounjaro 2.5 mg/0.5 mL pen injector 2.5 mg SUBCUT WEEKLY Patient Comments: Takes on . polysaccharide iron complex 150 mg iron Capsule 150 mg PO DAILY@0800 30 Days Qty: 30 1RF pantoprazole 40 mg Tablet,Delayed Release (Dr/Ec) 40 mg PO QAM 30 Days Qty: 30 0RF midodrine 2.5 mg Tablet 2.5 mg PO TID 30 Days Qty: 90 0RF Xarelto 15 mg Tablet 15 mg PO EVENING 30 Days Qty: 30 1RF Follow-up/Referrals: Lance,MELLISSA Kent [Primary Care Provider] -
--- NOTE | 2024-12-19 17:00 | ECG_ITS ---
Test Date: 2024-12-19 17:13:13 Measurements Intervals [place] Rate: 104 P: 58 NM: 137 QRS: 34 QRSD: 89 T: 120 QT: 345 QTc: 456 Interpretive Statements SINUS TACHYCARDIA ANTERIOR MYOCARDIAL INFARCTION , PROBABLY OLD [40+ ms Q WAVE AND/OR ST/T ABNORMALITY IN V3/V4] Compared to ECG 10/28/2024 11:47:14 Myocardial infarct finding now present Left ventricular hypertrophy no longer present Electronically Signed On 12-20-2024 13:59:31 CDT by John Freedman M.D.
--- OUTSIDE RECORDS SUMMARY | 2024-12-19 17:28 | XMS_ITS | Clinical Summary ---
Author Organization [employer] [facility] Address [address] [place] [address] Phone Care Team Providers Care Electronic Scale Subassembler Name Role Phone Arnoldo Gary MD Primary Care Provider [phone] Allergies Active Allergy Reactions Criticality Noted Date [...] t be different from the original. 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 Gender Identity Not on file Sexual Orientation [...] Additional history exists INFLUENZA VACCINE (#1) 2024 ZOSTER VACCINE (1 of 2) 2024 Medical Devices Implanted Type Area Acidity Tester Device Identifier Shelf Expiration Date Model / Serial / Lot Tfna Fenestrated Screw 90mm Implanted:Qty: 1 on 03/27/2021 by Bob Deras MD at [facility] Screw Left: Hip [employer] 02/06/2031 04.038.19 0 S / / [id number] Screw Loc Stardrv 5x62mm Strl 04.005.552s - Sload 23 Implanted:Qty: 1 on 03/27/2021 by Bob Deras MD at [facility] Screw Left: Hip [employer] 04.005.55 2 S / LOAD 03/14/21 11mm/125deg Ti Js Tfna 380mm/Left Implanted:Qty: 1 on 03/27/2021 by Bob Deras MD at [facility] Left: Hip [employer] [facility] 01/07/2030 04.037.12 9 S / / [id number] Description:All Synthes comp onents are processed on requisition, [id number]. Procedures Procedure Name Priority Date/Time Associated Diagnosis Comments HEMOGLOBIN A1C Stat 04/25/2022 3:22 AM CDT LIPID PANEL Routine 04/20/2021 5:30 AM CDT MICROALBUMIN/CREATIN INE RATIO, RANDOM UR Routine 06/26/2014 Diabetes mellitus ([facility]) from Last 3 Months or Most Recently Relevant to Health Maintenance Results * (ABNORMAL) HEMOGLOBIN A1C (04/25/2022 3:22 AM CDT) HEMOGLOBIN A1C 8.2(H) <=5.6 % 04/25/2022 4:13 AM CDT [facility] [place] EST. AVG GLUCOSE, A1C 189 mg/dL 04/25/2022 4:13 AM CDT [facility] Blood Venipuncture / Unknown 04/25/2022 3:22 AM CDT 04/25/2022 3:43 AM CDT Narrative [facility] - 04/25/2022 4:13 AM CDT HGB A1C INTERPRETATION NORMAL: <5.7% PRE-DIABETES: 5.7 - 6.4% DIABETES: 6.5% OR GREATER us Alphonse Samson MD CHEMISTRY ORDERABLES Final Result [facility] CLIA # [id number] [address] [place] [address] * (ABNORMAL) LIPID PANEL (04/20/2021 5:30 AM CDT) CHOLESTEROL 166 <200 mg/dL 04/20/2021 6:55 AM CDT [facility] TRIGLYCERIDE 83 <150 mg/dL 04/20/2021 6:55 AM T [facility] HDL 40 40 - 59 mg/dL 04/20/2021 6:55 AM T [facility] LDL CALCULATED 109(H) <100 mg/dL 04/20/2021 6:55 AM T [facility] NON-HDL CHOLESTEROL 126 <130 mg/dL 04/20/2021 6:55 AM T [facility] Blood Venipuncture / Unknown 04/20/2021 5:30 AM CDT 04/20/2021 6:21 AM CDT Narrative [facility] - 04/20/2021 6:55 AM CDT TOTAL [...] Reference Ranges for Lipid Panels (NCEP/AMA) . [facility] Tawana Kelly MD CHEMISTRY ORDERABLES Final Result [facility] [employer] [facility]# [id number] [address] [facility] [place] [address] * MICROALBUMIN/CREATININE RATIO, RANDOM UR (06/26/2014) Urine specimen (specimen) Orquidea Delgado MD URINE ORDERABLES Final Result [facility] # [id number] [address] [place] [address] from Last 3 Months or Most Recently Relevant to Health Maintenance Additional Health Concerns Infection Onset Date Last Indicated MRSA Comment:hx MRSA documented per 12/22/17 infectious disease screening form - Cierra Becker RN 12/24/2017 05/09/[address] [place] [address] [address] MEDICAID [facility] MEDICARE Advance Directives For more information, please contact: [phone] * Full Code (Latest Code Status on File) Date Activated Date Inactivated Comments 04/25/2022 2:46 AM 04/29/2022 5:00 PM * Full Code Date Activated Date Inactivated Comments 05/08/2021 5:35 PM 05/24/2021 5:02 PM * Full Code Date Activated Date Inactivated Comments 03/27/2021 7:30 AM 05/08/2021 5:20 PM Care Teams Electronic Scale Subassembler Relationship Specialty Start Date End Date Arnoldo Gary MD [address] [place] [id number] PCP - General Internal Medicine 03/27/21
--- OUTSIDE RECORDS SUMMARY | 2024-12-19 17:28 | XMS_ITS | Referral Summary ---
Author Organization [facility] er Address [address] [place] [address] Care Team Providers Care Network Operations Center Engineer Name Role Phone Donte Lucas Primary Care Provider Encounters Date Type Department Care Team Description 12/01/2024 9:00 AM CDT Office Visit [facility] Cardiology [address] [place] [address] [address] [place] [address] Maggie Schmitz NP Chronic systolic congestive heart failure (HCC) (Primary Dx); Coronary artery disease involving [place] tribe coronary artery of chick[place]ian tribe heart without angina pectoris; Lipid screening; Paroxysmal atrial fibrillation (HCC); Urinary retention; Hospital discharge follow-up 11/10/2024 3:00 PM CDT Home Care Visit [address] [place] [address] Danuta Peña, [facility] INFORMATIONAL VISIT 11/08/2024 Home Care Visit [address] [place] [address] Amanda Mcdonnell RN SN TRIAGE ENCOUNTER 11/07/2024 Orders Only [facility] Cardiology [address] [facility] [address] [place] [address] John Freedman MD 10/28/2024 Orders Only [facility] [address] [place] [phone] Trevor Rollins MD 09/13/2024 1:12 AM [employer] - 10/01/2024 5:21 PM [employer] Hospital Encounter [facility] [address] [place] [id number] Carl Abreu MD Striker, David A., MD Barks, Elida [...] hematuria 09/22/2021 Coronary artery disease invo lving chick[place]om[place] indian tribe coronary artery of chick[place] indian tribe heart without angina pectoris 09/22/2021 Chronic pain [...] = 0.6 oz pur e alcohol) [facility] Utilities Answer Date Recorded In the past 12 months has [employer], gas, oil, or water [employer] threatened to shut off services in your [...] often do you attend chur ch or restorationism services? Never 09/13/2024 Do you belong to any clubs o r organizations such as pentecostal groups, unions, fraternal or athletic groups, or [...] any time in the past [address] [facility], were you homeless or living in a alf (including now)? No 09/13/2024 Personal Safety Answer Date Recorded Have you ever been in or are you currently in a harmful physical or emotional relationship or is someone making you feel afraid or unsafe? Patient unable to answer 09/13/2024 Comments No Sex and Gender Information Value Date Recorded Sex Assigned at Not on file Legal Sex Female 11:01 PM [employer] Gender Identity Not on file Sexual Orientation Not on file Last Filed Vital Signs Vital Sign Reading Time Taken Comments Blood Pressure 108/68 12/01/2024 8:58 AM CDT Pulse 90 12/01/2024 8:58 AM CDT Temperature 36.4 C (97.6 F) 10/01/2024 3:07 AM [employer] Respiratory Rate 18 10/01/2024 3:07 AM [employer] Oxygen Saturation 94% 12/01/2024 8:58 AM CDT [...] GLUCOSE DEVICE Routine 10/01/2024 4 :34 PM [employer] POCT GLUCOSE DEVICE Routine 10/01/2024 1 1:48 AM [employer] XR CHEST 1 VIEW IP Routine 10/01/2024 9:10 AM [employer] EGFR Routine 10/01/2024 6:57 AM [employer] BASIC METABOLIC PANEL Routine 10/01/2024 6:57 AM [employer] MAGNESIUM Routine 10/01/2024 6:57 AM [employer] POCT GLUCOSE DEVICE Routine 10/01/2024 6 :04 AM [employer] POCT GLUCOSE DEVICE Routine 10/01/2024 2 :00 AM [employer] POCT GLUCOSE DEVICE Routine 09/30/2024 9 :45 PM [employer] POCT GLUCOSE DEVICE Routine 09/30/2024 4 :52 PM [employer] POCT GLUCOSE DEVICE Routine 09/30/2024 1 1:39 AM [employer] POCT GLUCOSE DEVICE Routine 09/30/2024 8 :36 AM [employer] POCT GLUCOSE DEVICE Routine 09/30/2024 5 :29 AM [employer] POCT GLUCOSE DEVICE Routine 09/30/2024 2 :22 AM [employer] POCT GLUCOSE DEVICE Routine 09/29/2024 8 :35 PM [employer] POCT GLUCOSE DEVICE Routine 09/29/2024 5 :35 PM [employer] EGFR Routine 09/29/2024 3:33 PM [employer] DIFFERENTIAL AUTO Routine 09/29/2024 3:3 3 PM [employer] COMPREHENSIVE METABOLIC PANEL Routine 09/29/2024 3:33 PM [employer] CBC WITH AUTO DIFFERENTIAL Routine 09/29/2024 3:33 PM [employer] POCT GLUCOSE DEVICE Routine 09/29/2024 1 :43 PM [employer] POCT GLUCOSE DEVICE Routine 09/29/2024 9 :49 AM [employer] POCT GLUCOSE DEVICE Routine 09/29/2024 7 :27 AM [employer] POCT GLUCOSE DEVICE Routine 09/29/2024 5 :31 AM [employer] POCT GLUCOSE DEVICE Routine 09/29/2024 1 :25 AM [employer] POCT GLUCOSE DEVICE Routine 09/28/2024 9 :14 PM [employer] POCT GLUCOSE DEVICE Routine 09/28/2024 5 :12 PM [employer] POCT GLUCOSE DEVICE Routine 09/28/2024 1 :43 PM [employer] POCT GLUCOSE DEVICE Routine 09/28/2024 9 :16 AM [employer] EGFR Routine 09/28/2024 7:09 AM [employer] DIFFERENTIAL AUTO Routine 09/28/2024 7:0 9 AM [employer] COMPREHENSIVE METABOLIC PANEL Routine 09/28/2024 7:09 AM [employer] CBC WITH AUTO DIFFERENTIAL Routine 09/28/2024 7:09 AM [employer] POCT GLUCOSE DEVICE Routine 09/28/2024 5 :42 AM [employer] POCT GLUCOSE DEVICE Routine 09/28/2024 1 :31 AM [employer] POCT GLUCOSE DEVICE Routine 09/27/2024 9 :14 PM [employer] POCT GLUCOSE DEVICE Routine 09/27/2024 5 :25 PM [employer] POCT GLUCOSE DEVICE Routine 09/27/2024 3 :13 PM [employer] FL MODIFIED BARIUM SWALLOW W VIDEO IP Routine 09/27/2024 2:20 PM [employer] POCT GLUCOSE DEVICE Routine 09/27/2024 1 0:05 AM [employer] ADD ON LAB TEST Add-On 09/27/2024 8:43 AM [employer] POCT GLUCOSE DEVICE Routine 09/27/2024 5 :57 AM [employer] IRON PROFILE W/ IBC Routine 09/27/2024 5 :42 AM [employer] EGFR Routine 09/27/2024 5:42 AM [employer] DIFFERENTIAL AUTO Routine 09/27/2024 5:4 2 AM [employer] COMPREHENSIVE METABOLIC PANEL Routine 09/27/2024 5:42 AM [employer] CBC WITH AUTO DIFFERENTIAL Routine 09/27/2024 5:42 AM [employer] POCT GLUCOSE DEVICE Routine 09/27/2024 2 :14 AM [employer] POCT GLUCOSE DEVICE Routine 09/26/2024 9 :41 PM [employer] POCT GLUCOSE DEVICE Routine 09/26/2024 6 :18 PM [employer] POCT GLUCOSE DEVICE Routine 09/26/2024 2 :51 PM [employer] CBC WITH AUTO DIFFERENTIAL STAT 09/26/2024 2:03 PM [employer] EGFR Routine 09/26/2024 1:25 PM [employer] DIFFERENTIAL AUTO Routine 09/26/2024 1:2 5 PM [employer] COMPREHENSIVE METABOLIC PANEL Routine 09/26/2024 1:25 PM [employer] CBC WITH AUTO DIFFERENTIAL Routine 09/26/2024 1:25 PM [employer] POCT GLUCOSE DEVICE Routine 09/26/2024 1 0:10 AM [employer] POCT GLUCOSE DEVICE Routine 09/26/2024 5 :04 AM [employer] C. DIFFICILE TESTING Routine 09/26/2024 2:18 AM [employer] POCT GLUCOSE DEVICE Routine 09/26/2024 1 2:01 AM [employer] POCT GLUCOSE DEVICE Routine 09/25/2024 8 :35 PM [employer] POCT GLUCOSE DEVICE Routine 09/25/2024 4 :36 PM [employer] POCT GLUCOSE DEVICE Routine 09/25/2024 1 1:55 AM [employer] POCT GLUCOSE DEVICE Routine 09/25/2024 8 :32 AM [employer] EGFR Routine 09/25/2024 8:32 AM [employer] DIFFERENTIAL AUTO Routine 09/25/2024 8:3 2 AM [employer] COMPREHENSIVE METABOLIC PANEL Routine 09/25/2024 8:32 AM [employer] CBC WITH AUTO DIFFERENTIAL Routine 09/25/2024 8:32 AM [employer] POCT GLUCOSE DEVICE Routine 09/25/2024 4 :49 AM [employer] POCT GLUCOSE DEVICE Routine 09/25/2024 1 2:48 AM [employer] POCT GLUCOSE DEVICE Routine 09/24/2024 8 :56 PM [employer] POCT GLUCOSE DEVICE Routine 09/24/2024 4 :20 PM [employer] POCT GLUCOSE DEVICE Routine 09/24/2024 1 2:13 PM [employer] XR CHEST 1 VIEW IP Routine 09/24/2024 8:18 AM [employer] POCT GLUCOSE DEVICE Routine 09/24/2024 4 :12 AM [employer] POCT GLUCOSE DEVICE Routine 09/24/2024 2 :44 AM [employer] POCT GLUCOSE DEVICE Routine 09/24/2024 1 :06 AM [employer] POCT GLUCOSE DEVICE Routine 09/24/2024 1 2:44 AM [employer] POCT GLUCOSE DEVICE Routine 09/24/2024 1 2:22 AM [employer] POCT GLUCOSE DEVICE Routine 09/23/2024 9 :34 PM [employer] POCT GLUCOSE DEVICE Routine 09/23/2024 4 :10 PM [employer] POCT GLUCOSE DEVICE Routine 09/23/2024 1 :10 PM [employer] POCT GLUCOSE DEVICE Routine 09/23/2024 1 2:18 PM [employer] POCT GLUCOSE DEVICE Routine 09/23/2024 1 1:55 AM [employer] POCT GLUCOSE DEVICE Routine 09/23/2024 1 1:54 AM [employer] POCT GLUCOSE DEVICE Routine 09/23/2024 7 :47 AM [employer] POCT GLUCOSE DEVICE Routine 09/23/2024 3 :27 AM [employer] POCT GLUCOSE DEVICE Routine 09/23/2024 1 :13 AM [employer] POCT GLUCOSE DEVICE Routine 09/23/2024 1 2:17 AM [employer] POCT GLUCOSE DEVICE Routine 09/22/2024 1 1:54 PM [employer] BLOOD GAS, ARTERIAL STAT 09/22/2024 8 :33 PM [employer] POCT GLUCOSE DEVICE Routine 09/22/2024 7 :46 PM [employer] POCT GLUCOSE DEVICE Routine 09/22/2024 4 :04 PM [employer] EXTUBATION Routine 09/22/2024 3:48 PM [employer] POCT GLUCOSE DEVICE Routine 09/22/2024 1 1:51 AM [employer] POCT GLUCOSE DEVICE Routine 09/22/2024 8 :42 AM [employer] POCT GLUCOSE DEVICE Routine 09/22/2024 4 :05 AM [employer] XR CHEST 1 VIEW IP Routine 09/22/2024 3:59 AM [employer] EGFR Routine 09/22/2024 2:24 AM [employer] CBC WITHOUT DIFFERENTIAL Routine 09/22/2024 2:24 AM [employer] MAGNESIUM Routine 09/22/2024 2:24 AM [employer] RENAL FUNCTION PANEL Routine 09/22/2024 2:24 AM [employer] POCT GLUCOSE DEVICE Routine 09/21/2024 1 1:58 PM [employer] POCT GLUCOSE DEVICE Routine 09/21/2024 7 :01 PM [employer] POCT GLUCOSE DEVICE Routine 09/21/2024 3 :10 PM [employer] POTASSIUM LEVEL STAT 09/21/2024 2:07 PM [employer] POCT GLUCOSE DEVICE Routine 09/21/2024 1 1:30 AM [employer] POCT GLUCOSE DEVICE Routine 09/21/2024 7 :19 AM [employer] XR CHEST 1 VIEW IP Routine 09/21/2024 4:44 AM [employer] POCT GLUCOSE DEVICE Routine 09/21/2024 3 :47 AM [employer] EGFR Routine 09/21/2024 1:48 AM [employer] PHOSPHORUS Routine 09/21/2024 1:48 AM [employer] BILIRUBIN, DIRECT Routine 09/21/2024 1:4 8 AM [employer] COMPREHENSIVE METABOLIC PANEL Routine 09/21/2024 1:48 AM [employer] CBC WITHOUT DIFFERENTIAL Routine 09/21/2024 1:48 AM [employer] MAGNESIUM Routine 09/21/2024 1:48 AM [employer] THYROID FUNCTION CASCADE Routine 09/17/2024 4:10 AM [employer] HEMOGLOBIN A1C Routine 09/13/2024 1:46 AM [employer] COLONOSCOPY REPORT 06/07/2014 from Last 3 Months [...] Result * POCT glucose (10/01/2024 4:34 PM [employer]) Glucose, POC 143 70 - 199 mg/dL Comment: For Glucose values <35 mg/dl when Hematocrit is >60 mg/dl,the test may not accurately detect significant hypoglycemia,and testing in the Laboratory should be considered if clinically indicated. Blood 10/01/2024 4:34 PM [employer] 10/01/2024 4:34 PM [employer] Chai Beck MD LAB POCT ORDERABLES - DEVICE Final Result Performing Organization Address [facility] Co de Phone Number [facility] [address] Department [place] [address] * POCT glucose (10/01/2024 11:48 AM [employer]) Glucose, POC 145 70 - 199 mg/dL Comment: For Glucose values <35 mg/dl when Hematocrit is >60 mg/dl,the test may not accurately detect significant hypoglycemia,and testing in the Laboratory should be considered if clinically indicated. Blood 10/01/2024 11:4 8 AM [employer] 10/01/2024 11:48 AM [employer] Chai Beck MD LAB POCT ORDERABLES - DEVICE Final Result [facility] [address] Department [place] [address] * XR Chest 1 View (10/01/2024 9:10 AM [employer]) Anatomical Region Laterality Modality Body, Chest N/A Computed Radiogr aphy 10/01/2024 9:17 AM [employer] Impressions 10/01/2024 9:17 AM [employer] Comparison 09/24/2024 Improvement in the left lower lobe and lingular consolidation. There is now a small left pleural effusion. Right lung is clear. There is no pneumothorax. The cardiomediastinal silhouette is unchanged.. Electronically signed by: Phillip Mathis MD Narrative 10/01/2024 9:17 AM [employer] Chest one view HISTORY: Recent pneumonia treated with antibiotics Procedure Note Phillip Mathis MD - 10/01/2024 Chest one view HISTORY: Recent pneumonia treated with antibiotics IMPRESSION: Comparison 09/24/2024 Improvement in the left lower lobe and lingular consolidation. There is now a small left pleural effusion. Right lung is clear. There is no pneumothorax. The cardiomediastinal silhouette is unchanged.. Electronically signed by: hPillip Mathis MD Timothy Augustin MD IMG XR PROCEDURES Final Resul t * (ABNORMAL) eGFR (10/01/2024 6:57 AM [employer]) eGFR 54(L) >=60 mL/min/1. 73 m2 Comment: [...] last reviewed 2021. Blood 10/01/2024 6:57 AM [employer] 10/01/2024 7:30 AM [employer] Timothy Augustin MD LAB BLOOD ORDERABLES Final Re sult Performing Organization Address City/[facility]/ZIP Co de Phone Number [facility] [address] Department [employer] [place], [place] [id number] * Magnesium (10/01/2024 6:57 AM [employer]) Pathologist [facility] Magnesium 1.5 1.4 - 2.5 mg/dL Blood 10/01/2024 6:57 AM [employer] 10/01/2024 7:30 AM [employer] Arnulfo Jordan MD LAB BLOOD ORDERABLES Final Result Performing Organization Address [facility] Co de Phone Number [facility] [address] [place] [place] [address] * (ABNORMAL) Basic metabolic panel (10/01/2024 6:57 AM [employer]) Sodium 140 135 - 145 mmol/L Potassium, pl 2.9(L) 3.3 - 4.9 mmol/L [facility] Chloride 108 97 - 110 mmol/L [facility] CO2 22 22 - 32 mmol/L [facility] Anion gap 10 2 - 15 mmol/L [facility] BUN 22 6 - 25 mg/dL [facility] Creatinine 1.23(H) 0.60 - 1.10 mg/dL [facility] Glucose 162 70 - 199 mg/dL [facility] Comment: Interpretive Data Fasting glucose >/= 126 [...] 2022. Calcium 8.0(L) 8.5 - 10.3 mg/dL [facility] Blood 10/01/2024 6:57 AM [employer] 10/01/2024 7:30 AM [employer] Timothy Augustin MD LAB BLOOD ORDERABLES Final Re sult Performing Organization Address [facility] Co de Phone Number [facility] [address] Department of [employer] [place], [place] [id number] * POCT glucose (10/01/2024 6:04 AM [employer]) Glucose, POC 179 70 - 199 mg/dL Comment: For Glucose values <35 mg/dl when Hematocrit is >60 mg/dl,the test may not accurately detect significant hypoglycemia,and testing in the Laboratory should be considered if clinically indicated. Blood 10/01/2024 6:04 AM [employer] 10/01/2024 6:04 AM [employer] Arnulfo Jordan MD LAB POCT ORDERABLES - DEVIC E Final Result Performing Organization Address [facility] Co de Phone Number [facility] [address] Department [place] [place] [address] * POCT glucose (10/01/2024 2:00 AM [employer]) Glucose, POC 168 70 - 199 mg/dL Comment: For Glucose values <35 mg/dl when Hematocrit is >60 mg/dl,the test may not accurately detect significant hypoglycemia,and testing in the Laboratory should be considered if clinically indicated. Blood 10/01/2024 2:00 AM [employer] 10/01/2024 2:00 AM [employer] Arnulfo Jordan MD LAB POCT ORDERABLES - DEVIC E Final Result Performing Organization Address [facility] Co de Phone Number [facility] [address] [facility] [employer] [place], [place] [id number] * POCT glucose (09/30/2024 9:45 PM [employer]) Glucose, POC 173 70 - 199 mg/dL Comment: For Glucose values <35 mg/dl when Hematocrit is >60 mg/dl,the test may not accurately detect significant hypoglycemia,and testing in the Laboratory should be considered if clinically indicated. Blood 09/30/2024 9:45 PM [employer] 09/30/2024 9:45 PM [employer] Arnulfo Jordan MD LAB POCT ORDERABLES - DEVIC E Final Result Performing Organization Address [facility] Co de Phone Number [facility] [address] [facility] [place] [employer] [place] [address] * (ABNORMAL) POCT glucose (09/30/2024 4:52 PM [employer]) Glucose, POC 213(H) 70 - 199 mg/dL Comment: For Glucose values <35 mg/dl when Hematocrit is >60 mg/dl,the test may not accurately detect significant hypoglycemia,and testing in the Laboratory should be considered if clinically indicated. Blood 09/30/2024 4:52 PM [employer] 09/30/2024 4:52 PM [employer] Arnulfo Jordan MD LAB POCT ORDERABLES - DEVIC E Final Result Performing Organization Address [facility] Co de Phone Number [facility] [address] [facility] [employer] [place], [place] [id number] * POCT glucose (09/30/2024 11:39 AM [employer]) Glucose, POC 139 70 - 199 mg/dL Comment: For Glucose values <35 mg/dl when Hematocrit is >60 mg/dl,the test may not accurately detect significant hypoglycemia,and testing in the Laboratory should be considered if clinically indicated. Blood 09/30/2024 11:3 9 AM [employer] 09/30/2024 11:39 AM [employer] Arnulfo Jordan MD LAB POCT ORDERABLES - DEVIC E Final Result Performing Organization Address [facility] de Phone Number [facility] [address] [place] [address] * POCT glucose (09/30/2024 8:36 AM [employer]) Glucose, POC 116 70 - 199 mg/dL Comment: For Glucose values <35 mg/dl when Hematocrit is >60 mg/dl,the test may not accurately detect significant hypoglycemia,and testing in the Laboratory should be considered if clinically indicated. Blood 09/30/2024 8:36 AM [employer] 09/30/2024 8:36 AM [employer] Arnulfo Jordan MD LAB POCT ORDERABLES - DEVIC E Final Result Performing Organization Address [facility] de Phone Number [facility] [address] [place] [address] * POCT glucose (09/30/2024 5:29 AM [employer]) Glucose, POC 110 70 - 199 mg/dL Comment: For Glucose values <35 mg/dl when Hematocrit is >60 mg/dl,the test may not accurately detect significant hypoglycemia,and testing in the Laboratory should be considered if clinically indicated. Blood 09/30/2024 5:29 AM [employer] 09/30/2024 5:29 AM [employer] us Arnulfo Jordan MD LAB POCT ORDERABLES - DEVIC E Final Result Performing Organization Address [facility] de Phone Number [facility] [address] [place] [address] * POCT glucose (09/30/2024 2:22 AM [employer]) Glucose, POC 183 70 - 199 mg/dL Comment: For Glucose values <35 mg/dl when Hematocrit is >60 mg/dl,the test may not accurately detect significant hypoglycemia,and testing in the Laboratory should be considered if clinically indicated. Blood 09/30/2024 2:22 AM [employer] 09/30/2024 2:22 AM [employer] Arnulfo Jordan MD LAB POCT ORDERABLES - DEVIC E Final Result [facility] [address] [place] [address] * POCT glucose (09/29/2024 8:35 PM [employer]) Glucose, POC 192 70 - 199 mg/dL Comment: For Glucose values <35 mg/dl when Hematocrit is >60 mg/dl,the test may not accurately detect significant hypoglycemia,and testing in the Laboratory should be considered if clinically indicated. Blood 09/29/2024 8:35 PM [employer] 09/29/2024 8:35 PM [employer] Arnulfo Jordan MD LAB POCT ORDERABLES - DEVIC E Final Result [facility] [address] [place] [address] * (ABNORMAL) POCT glucose (09/29/2024 5:35 PM [employer]) Glucose, POC 203(H) 70 - 199 mg/dL Comment: For Glucose values <35 mg/dl when Hematocrit is >60 mg/dl,the test may not accurately detect significant hypoglycemia,and testing in the Laboratory should be considered if clinically indicated. Blood 09/29/2024 5:35 PM [employer] 09/29/2024 5:35 PM [employer] Arnulfo Jordan MD LAB POCT ORDERABLES - DEVIC E Final Result Performing Organization Address [facility]/ZIP Co de Phone Number [facility] [address] Department [place] [address] * (ABNORMAL) eGFR (09/29/2024 3:33 PM [employer]) Pathologist [facility] eGFR 58(L) >=60 mL/min/1. 73 m2 Comment: [...] last reviewed 2021. Blood 09/29/2024 3:33 PM [employer] 09/29/2024 3:45 PM [employer] Arnulfo Jordan MD LAB BLOOD ORDERABLES Final Result Performing Organization Address City/[facility]/ZIP Co de Phone Number [facility] [address] Department [place] [address] * (ABNORMAL) Differential, auto (09/29/2024 3:33 PM [employer]) Pathologist [facility] Neutrophil abs 6.6(H) 1.5 - 6.5 K/cumm Imm gran abs 0.1 0.0 - 0.1 K/cumm [facility] Lymphocyte abs 0.9 0.8 - 3.3 K/cumm [facility] Monocyte abs 0.6 0.2 - 0.8 K/cumm [facility] Eosinophil abs 0.1 0.0 - 0.5 K/cumm [facility] Basophil abs 0.1 0.0 - 0.1 K/cumm [facility] Neutrophil pct 79.1 % [facility] Comment: Interpretive Data Percent cell count reference ranges are not reported, since discordance with absolute values may lead to misinterpretation of CBC data. Current Interpretive Data was last revised on 2017. Imm gran pct 0.6 % [facility] Comment: Interpretive Data Percent cell count reference ranges are not reported, since discordance with absolute values may lead to misinterpretation of CBC data. Current Interpretive Data was last revised on 2017. Lymphocyte pct 11.1 % [facility] Comment: Interpretive Data Percent cell count reference ranges are not reported, since discordance with absolute values may lead to misinterpretation of CBC data. Current Interpretive Data was last revised on 2017. Monocyte pct 7.6 % [facility] Comment: Interpretive Data Percent cell count reference ranges are not reported, since discordance with absolute values may lead to misinterpretation of CBC data. Current Interpretive Data was last revised on 2017. Eosinophil pct 0.6 % [facility] Comment: Interpretive Data Percent cell count reference ranges are not reported, since discordance with absolute values may lead to misinterpretation of CBC data. Current Interpretive Data was last revised on 2017. Basophil pct 1.0 % [facility] Comment: Interpretive Data Percent cell count reference ranges are not reported, since discordance with absolute values may lead to misinterpretation of CBC data. Current Interpretive Data was last revised on 2017. Blood 09/29/2024 3:33 PM [employer] 09/29/2024 3:45 PM [employer] us Arnulfo Jordan MD LAB BLOOD ORDERABLES Final Result [facility] [address] Department [place] [address] * (ABNORMAL) CBC with auto differential (09/29/2024 3:33 PM [employer]) [facility] WBC 8.3 3.8 - 9.9 K/cumm Hgb 7.8(L) 11.9 - 15.5 g/dL [facility] Hct 24.8(L) 35.6 - 45.5 % [facility] Plt 291 150 - 400 K/cumm [facility] MPV 10.9 9.1 - 12.3 fL [facility] RBC 2.59(L) 3.90 - 5.20 M/cumm [facility] MCV 95.8 81.3 - 96.4 fL [facility] MCH 30.1 27.1 - 33.3 pg [facility] MCHC 31.5(L) 32.3 - 35.7 g/dL [facility] RDW CV 16.6(H) 11.1 - 14.9 % [facility] RDW SD 56.7(H) 35.7 - 48.1 fL [facility] NRBC abs 0.02(H) 0.00 - 0.01 K/cumm [facility] Blood 09/29/2024 3:33 PM [employer] 09/29/2024 3:45 PM [employer] Arnulfo Jordan MD LAB BLOOD ORDERABLES Final Result [facility] [address] Department [place] [address] * (ABNORMAL) Comprehensive metabolic panel (09/29/2024 3:33 PM [employer]) [facility] Sodium 141 135 - 145 mmol/L Potassium, pl 2.9(L) 3.3 - 4.9 mmol/L [facility] Chloride 110 97 - 110 mmol/L [facility] CO2 20(L) 22 - 32 mmol/L [facility] Anion gap 11 2 - 15 mmol/L [facility] BUN 19 6 - 25 mg/dL [facility] Creatinine 1.15(H) 0.60 - 1.10 mg/dL [facility] Glucose 207(H) 70 - 199 mg/dL [facility] Comment: Interpretive Data Fasting glucose >/= 126 [...] 2022. Calcium 7.7(L) 8.5 - 10.3 mg/dL [facility] Bilirubin, total 0.2 0.1 - 1.2 mg/dL [facility] Protein, pl 6.4(L) 6.5 - 8.5 g/dL [facility] Albumin 1.9(L) 3.5 - 5.0 g/dL [facility] Alk phos 170(H) 40 - 130 Units/L [facility] ALT 12 7 - 45 Units/L [facility] AST 27 10 - 45 Units/L [facility] Comment:Slightly Hemolyzed S pecimen Blood 09/29/2024 3:33 PM [employer] 09/29/2024 3:45 PM [employer] Arnulfo Jordan MD LAB BLOOD ORDERABLES Final Result [facility] [address] Department [place] [address] * POCT glucose (09/29/2024 1:43 PM [employer]) [facility] Glucose, POC 164 70 - 199 mg/dL Comment: For Glucose values <35 mg/dl when Hematocrit is >60 mg/dl,the test may not accurately detect significant hypoglycemia,and testing in the Laboratory should be considered if clinically indicated. Blood 09/29/2024 1:43 PM [employer] 09/29/2024 1:43 PM [employer] us Arnulfo Jordan MD LAB POCT ORDERABLES - DEVIC E Final Result Performing Organization Address [facility]/ZIP Co de Phone Number [employer] [address] [facility] [place] [address] * POCT glucose (09/29/2024 9:49 AM [employer]) Glucose, POC 133 70 - 199 mg/dL Comment: For Glucose values <35 mg/dl when Hematocrit is >60 mg/dl,the test may not accurately detect significant hypoglycemia,and testing in the Laboratory should be considered if clinically indicated. Blood 09/29/2024 9:49 AM [employer] 09/29/2024 9:49 AM [employer] Arnulfo Jordan MD LAB POCT ORDERABLES - DEVIC E Final Result Performing Organization Address [facility] Co de Phone Number [employer] [address] [facility] [place] [address] * POCT glucose (09/29/2024 7:27 AM [employer]) Glucose, POC 114 70 - 199 mg/dL Comment: For Glucose values <35 mg/dl when Hematocrit is >60 mg/dl,the test may not accurately detect significant hypoglycemia,and testing in the Laboratory should be considered if clinically indicated. Blood 09/29/2024 7:27 AM [employer] 09/29/2024 7:27 AM [employer] Arnulfo Jordan MD LAB POCT ORDERABLES - DEVIC E Final Result Performing Organization Address City/[facility]/ZIP Co de Phone Number [facility] [employer] [address] [facility] [place] [address] * POCT glucose (09/29/2024 5:31 AM [employer]) Glucose, POC 115 70 - 199 mg/dL Comment: For Glucose values <35 mg/dl when Hematocrit is >60 mg/dl,the test may not accurately detect significant hypoglycemia,and testing in the Laboratory should be considered if clinically indicated. Blood 09/29/2024 5:31 AM [employer] 09/29/2024 5:31 AM [employer] Arnulfo Jordan MD LAB POCT ORDERABLES - DEVIC E Final Result Performing Organization Address [facility] Co de Phone Number [employer] [address] [facility] [place] [address] * POCT glucose (09/29/2024 1:25 AM [employer]) Glucose, POC 108 70 - 199 mg/dL Comment: For Glucose values <35 mg/dl when Hematocrit is >60 mg/dl,the test may not accurately detect significant hypoglycemia,and testing in the Laboratory should be considered if clinically indicated. Blood 09/29/2024 1:25 AM [employer] 09/29/2024 1:25 AM [employer] Arnulfo Jordan MD LAB POCT ORDERABLES - DEVIC E Final Result Performing Organization Address [facility] Co de Phone Number [facility] [employer] [address] [place] [address] * POCT glucose (09/28/2024 9:14 PM [employer]) Glucose, POC 106 70 - 199 mg/dL Comment: For Glucose values <35 mg/dl when Hematocrit is >60 mg/dl,the test may not accurately detect significant hypoglycemia,and testing in the Laboratory should be considered if clinically indicated. Blood 09/28/2024 9:14 PM [employer] 09/28/2024 9:14 PM [employer] Result [facility] Arnulfo Jordan MD LAB POCT ORDERABLES - DEVIC E Final Result Performing Organization Address [facility] Co de Phone Number [facility] [address] [place] [address] * POCT glucose (09/28/2024 5:12 PM [employer]) Glucose, POC 161 70 - 199 mg/dL Comment: For Glucose values <35 mg/dl when Hematocrit is >60 mg/dl,the test may not accurately detect significant hypoglycemia,and testing in the Laboratory should be considered if clinically indicated. Blood 09/28/2024 5:12 PM [employer] 09/28/2024 5:12 PM [employer] Result [facility] Arnulfo Jordan MD LAB POCT ORDERABLES - DEVIC E Final Result Performing Organization Address [facility] Co de Phone Number [employer] [address] [facility] [place] [address] * POCT glucose (09/28/2024 1:43 PM [employer]) Glucose, POC 173 70 - 199 mg/dL Comment: For Glucose values <35 mg/dl when Hematocrit is >60 mg/dl,the test may not accurately detect significant hypoglycemia,and testing in the Laboratory should be considered if clinically indicated. Blood 09/28/2024 1:43 PM [employer] 09/28/2024 1:43 PM [employer] Result [facility] Arnulfo Jordan MD LAB POCT ORDERABLES - DEVIC E Final Result Performing Organization Address [facility] Co de Phone Number [facility] [employer] [address] [facility] [place] [address] * POCT glucose (09/28/2024 9:16 AM [employer]) Glucose, POC 124 70 - 199 mg/dL Comment: For Glucose values <35 mg/dl when Hematocrit is >60 mg/dl,the test may not accurately detect significant hypoglycemia,and testing in the Laboratory should be considered if clinically indicated. Blood 09/28/2024 9:16 AM [employer] 09/28/2024 9:16 AM [employer] Result [facility] Arnulfo Jordan MD LAB POCT ORDERABLES - DEVIC E Final Result Performing Organization Address [facility] Co de Phone Number [facility] [employer] [address] Department [place] [address] * (ABNORMAL) eGFR (09/28/2024 7:09 AM [employer]) eGFR 58(L) >=60 mL/min/1. 73 m2 Comment: [...] last reviewed 2021. Blood 09/28/2024 7:09 AM [employer] 09/28/2024 7:45 AM [employer] Arnulfo Jordan MD LAB BLOOD ORDERABLES Final Result Performing Organization Address City/[facility]/ZIP Co de Phone Number [facility] [employer] [address] Department [place] [address] * (ABNORMAL) Differential, auto (09/28/2024 7:09 AM [employer]) Neutrophil abs 5.7 1.5 - 6.5 K/cumm Imm gran abs 0.0 0.0 - 0.1 K/cumm [facility] Lymphocyte abs 0.7(L) 0.8 - 3.3 K/cumm [facility] Monocyte abs 0.5 0.2 - 0.8 K/cumm [facility] Eosinophil abs 0.1 0.0 - 0.5 K/cumm [facility] Basophil abs 0.1 0.0 - 0.1 K/cumm [facility] Neutrophil pct 80.9 % [facility] Comment: Interpretive Data Percent cell count reference ranges are not reported, since discordance with absolute values may lead to misinterpretation of CBC data. Current Interpretive Data was last revised on 2017. Imm gran pct 0.4 % [facility] Comment: Interpretive Data Percent cell count reference ranges are not reported, since discordance with absolute values may lead to misinterpretation of CBC data. Current Interpretive Data was last revised on 2017. Lymphocyte pct 9.3 % [facility] Comment: Interpretive Data Percent cell count reference ranges are not reported, since discordance with absolute values may lead to misinterpretation of CBC data. Current Interpretive Data was last revised on 2017. Monocyte pct 6.9 % [facility] Comment: Interpretive Data Percent cell count reference ranges are not reported, since discordance with absolute values may lead to misinterpretation of CBC data. Current Interpretive Data was last revised on 2017. Eosinophil pct 1.5 % [facility] Comment: Interpretive Data Percent cell count reference ranges are not reported, since discordance with absolute values may lead to misinterpretation of CBC data. Current Interpretive Data was last revised on 2017. Basophil pct 1.0 % [facility] Comment: Interpretive Data Percent cell count reference ranges are not reported, since discordance with absolute values may lead to misinterpretation of CBC data. Current Interpretive Data was last revised on 2017. Blood 09/28/2024 7:09 AM [employer] 09/28/2024 7:45 AM [employer] us Arnulfo Jordan MD LAB BLOOD ORDERABLES Final Result [facility] [address] Department [place] [address] * (ABNORMAL) CBC with auto differential (09/28/2024 7:09 AM [employer]) WBC 7.1 3.8 - 9.9 K/cumm Hgb 7.3(L) 11.9 - 15.5 g/dL [facility] Hct 24.5(L) 35.6 - 45.5 % [facility] Plt 285 150 - 400 K/cumm [facility] MPV 11.3 9.1 - 12.3 fL [facility] RBC 2.54(L) 3.90 - 5.20 M/cumm [facility] MCV 96.5(H) 81.3 - 96.4 fL [facility] MCH 28.7 27.1 - 33.3 pg [facility] MCHC 29.8(L) 32.3 - 35.7 g/dL [facility] RDW CV 16.5(H) 11.1 - 14.9 % [facility] RDW SD 57.2(H) 35.7 - 48.1 fL [facility] NRBC abs 0.00 0.00 - 0.01 K/cumm [facility] Blood 09/28/2024 7:09 AM [employer] 09/28/2024 7:45 AM [employer] Arnulfo Jordan MD LAB BLOOD ORDERABLES Final Result [facility] [address] Department [place] [address] * (ABNORMAL) Comprehensive metabolic panel (09/28/2024 7:09 AM [employer]) [facility] Sodium 142 135 - 145 mmol/L Potassium, pl 3.3 3.3 - 4.9 mmol/L [facility] Chloride 109 97 - 110 mmol/L [facility] CO2 21(L) 22 - 32 mmol/L [facility] Anion gap 12 2 - 15 mmol/L [facility] BUN 24 6 - 25 mg/dL [facility] Creatinine 1.15(H) 0.60 - 1.10 mg/dL [facility] Glucose 111 70 - 199 mg/dL [facility] Comment: Interpretive Data Fasting glucose >/= 126 [...] 2022. Calcium 8.1(L) 8.5 - 10.3 mg/dL [facility] Bilirubin, total 0.2 0.1 - 1.2 mg/dL [facility] Protein, pl 6.3(L) 6.5 - 8.5 g/dL [facility] Albumin 1.9(L) 3.5 - 5.0 g/dL [facility] Alk phos 163(H) 40 - 130 Units/L [facility] ALT 10 7 - 45 Units/L [facility] AST 28 10 - 45 Units/L [facility] Blood 09/28/2024 7:09 AM [employer] 09/28/2024 7:45 AM [employer] Arnulfo Jordan MD LAB BLOOD ORDERABLES Final Result Performing Organization Address [facility] Co de Phone Number [facility] [address] [place] [address] * POCT glucose (09/28/2024 5:42 AM [employer]) [facility] Glucose, POC 123 70 - 199 mg/dL Comment: For Glucose values <35 mg/dl when Hematocrit is >60 mg/dl,the test may not accurately detect significant hypoglycemia,and testing in the Laboratory should be considered if clinically indicated. Blood 09/28/2024 5:42 AM [employer] 09/28/2024 5:42 AM [employer] Arnulfo Jordan MD LAB POCT ORDERABLES - DEVIC E Final Result Performing Organization Address [facility]/ZIP Co de Phone Number [facility] [address] [place] [address] * POCT glucose (09/28/2024 1:31 AM [employer]) Glucose, POC 125 70 - 199 mg/dL Comment: For Glucose values <35 mg/dl when Hematocrit is >60 mg/dl,the test may not accurately detect significant hypoglycemia,and testing in the Laboratory should be considered if clinically indicated. Blood 09/28/2024 1:31 AM [employer] 09/28/2024 1:31 AM [employer] Arnulfo Jordan MD LAB POCT ORDERABLES - DEVIC E Final Result Performing Organization Address [facility] Co de Phone Number [facility] [employer] [address] [place] [address] * POCT glucose (09/27/2024 9:14 PM [employer]) Glucose, POC 136 70 - 199 mg/dL Comment: For Glucose values <35 mg/dl when Hematocrit is >60 mg/dl,the test may not accurately detect significant hypoglycemia,and testing in the Laboratory should be considered if clinically indicated. Blood 09/27/2024 9:14 PM [employer] 09/27/2024 9:14 PM [employer] Arnulfo Jordan MD LAB POCT ORDERABLES - DEVIC E Final Result Performing Organization Address City/[facility] Co de Phone Number [facility] [employer] [address] [place] [address] * POCT glucose (09/27/2024 5:25 PM [employer]) Glucose, POC 112 70 - 199 mg/dL Comment: For Glucose values <35 mg/dl when Hematocrit is >60 mg/dl,the test may not accurately detect significant hypoglycemia,and testing in the Laboratory should be considered if clinically indicated. Blood 09/27/2024 5:25 PM [employer] 09/27/2024 5:25 PM [employer] Arnulfo Jordan MD LAB POCT ORDERABLES - DEVIC E Final Result Performing Organization Address [facility] Co de Phone Number [facility] [employer] [address] [facility] [employer] [place], [place] [id number] * POCT glucose (09/27/2024 3:13 PM [employer]) Glucose, POC 101 70 - 199 mg/dL Comment: For Glucose values <35 mg/dl when Hematocrit is >60 mg/dl,the test may not accurately detect significant hypoglycemia,and testing in the Laboratory should be considered if clinically indicated. Blood 09/27/2024 3:13 PM [employer] 09/27/2024 3:13 PM [employer] Arnulfo Maribell Jordan MD LAB POCT ORDERABLES - DEVIC E Final Result Performing Organization Address [facility] Co de Phone Number [facility] [employer] [address] [facility] [place] [address] * FL Modified Barium Swallow W Video (09/27/2024 2:20 PM [employer]) Anatomical Region Laterality Modality Head and Neck N/A Radio Fluoroscop y 09/27/2024 2:33 PM [employer] Impressions 09/27/2024 3:03 PM [employer] 1. There is flash laryngeal penetration with [...] Zion Rodriguez M.D. Narrative 09/27/2024 3:03 PM [employer] EXAMINATION: MODIFIED BARIUM SWALLOW 09/27/2024 HISTORY: Dysphagia. [...] it. Electronically signed by: Zion Rodriguez M.D. Arnulfo Jordan MD IM FLUOROSCOPY PROCEDURES Final Result * POCT glucose (09/27/2024 10:05 AM [employer]) Glucose, POC 89 70 - 199 mg/dL Comment: For Glucose values <35 mg/dl when Hematocrit is >60 mg/dl,the test may not accurately detect significant hypoglycemia,and testing in the Laboratory should be considered if clinically indicated. Blood 09/27/2024 10:0 5 AM [employer] 09/27/2024 10:05 AM [employer] Result Jordan Jordan MD LAB POCT ORDERABLES - DEVIC E Final Result Performing Organization Address [facility] Co de Phone Number [facility] [address] Department [employer] [place], [place] [id number] * Iron profile - Add on lab test (09/27/2024 8:43 AM [employer]) [facility] Acceptable Yes Blood 09/27/2024 8:43 AM [employer] 09/27/2024 8:43 AM [employer] Narrative [employer] - 09/27/2024 8:44 AM [employer] Name of Test->Iron profile Arnulfo Jordan MD LAB BLOOD ORDERABLES Final Result Performing Organization Address [facility] de Phone Number [facility] [address] Department [employer] [place], [place] [id number] * POCT glucose (09/27/2024 5:57 AM [employer]) [facility] Glucose, POC 74 70 - 199 mg/dL Comment: For Glucose values <35 mg/dl when Hematocrit is >60 mg/dl,the test may not accurately detect significant hypoglycemia,and testing in the Laboratory should be considered if clinically indicated. Blood 09/27/2024 5:57 AM [employer] 09/27/2024 5:57 AM [employer] Result [facility] us Arnulfo Jordan MD LAB POCT ORDERABLES - DEVIC E Final Result Performing Organization Address [facility] Co de Phone Number [facility] [address] Department [employer] [place], [place] [id number] * (ABNORMAL) eGFR (09/27/2024 5:42 AM [employer]) [facility] eGFR 58(L) >=60 mL/min/1. 73 m2 [...] last reviewed 2021. Blood 09/27/2024 5:42 AM [employer] 09/27/2024 5:55 AM [employer] us Arnulfo Jordan MD LAB BLOOD ORDERABLES Final Result [facility] [address] Department [place] [address] * (ABNORMAL) Differential, auto (09/27/2024 5:42 AM [employer]) Neutrophil abs 7.1(H) 1.5 - 6.5 K/cumm Imm gran abs 0.0 0.0 - 0.1 K/cumm [facility] Lymphocyte abs 0.7(L) 0.8 - 3.3 K/cumm [facility] Monocyte abs 0.6 0.2 - 0.8 K/cumm [facility] Eosinophil abs 0.2 0.0 - 0.5 K/cumm [facility] Basophil abs 0.1 0.0 - 0.1 K/cumm [facility] Neutrophil pct 80.9 % [facility] Comment: Interpretive Data Percent cell count reference ranges are not reported, since discordance with absolute values may lead to misinterpretation of CBC data. Current Interpretive Data was last revised on 2017. Imm gran pct 0.5 % [facility] Comment: Interpretive Data Percent cell count reference ranges are not reported, since discordance with absolute values may lead to misinterpretation of CBC data. Current Interpretive Data was last revised on 2017. Lymphocyte pct 8.4 % [facility] Comment: Interpretive Data Percent cell count reference ranges are not reported, since discordance with absolute values may lead to misinterpretation of CBC data. Current Interpretive Data was last revised on 2017. Monocyte pct 6.6 % [facility] Comment: Interpretive Data Percent cell count reference ranges are not reported, since discordance with absolute values may lead to misinterpretation of CBC data. Current Interpretive Data was last revised on 2017. Eosinophil pct 2.6 % [facility] Comment: Interpretive Data Percent cell count reference ranges are not reported, since discordance with absolute values may lead to misinterpretation of CBC data. Current Interpretive Data was last revised on 2017. Basophil pct 1.0 % [facility] Comment: Interpretive Data Percent cell count reference ranges are not reported, since discordance with absolute values may lead to misinterpretation of CBC data. Current Interpretive Data was last revised on 2017. Blood 09/27/2024 5:42 AM [employer] 09/27/2024 5:55 AM [employer] Arnulfo Jordan MD LAB BLOOD ORDERABLES Final Result [facility] [address] Department [place] [address] * (ABNORMAL) Iron profile w/ IBC (09/27/2024 5:42 AM [employer]) Iron 25(L) 35 - 145 mcg/dL TIBC 156(L) 250 - 400 mcg/dL [facility] Transferrin saturation 16(L) 20 - 50 % [facility] Blood 09/27/2024 5:42 AM [employer] 09/27/2024 5:55 AM [employer] Arnulfo Jordan MD LAB BLOOD ORDERABLES Final Result Performing Organization Address [facility]/ZIP Co de Phone Number [facility] [address] [place] [address] * (ABNORMAL) CBC with auto differential (09/27/2024 5:42 AM [employer]) [facility] WBC 8.8 3.8 - 9.9 K/cumm Hgb 7.2(L) 11.9 - 15.5 g/dL [facility] Hct 24.6(L) 35.6 - 45.5 % [facility] Plt 280 150 - 400 K/cumm [facility] MPV 11.4 9.1 - 12.3 fL [facility] RBC 2.60(L) 3.90 - 5.20 M/cumm [facility] MCV 94.6 81.3 - 96.4 fL [facility] MCH 27.7 27.1 - 33.3 pg [facility] MCHC 29.3(L) 32.3 - 35.7 g/dL [facility] RDW CV 16.1(H) 11.1 - 14.9 % [facility] RDW SD 54.5(H) 35.7 - 48.1 fL [facility] NRBC abs 0.00 0.00 - 0.01 K/cumm [facility] Blood 09/27/2024 5:42 AM [employer] 09/27/2024 5:55 AM [employer] Arnulfo Jordan MD LAB BLOOD ORDERABLES Final Result [facility] [address] Department of [employer] [place], [place] [id number] * (ABNORMAL) Comprehensive metabolic panel (09/27/2024 5:42 AM [employer]) [facility] Sodium 143 135 - 145 mmol/L Potassium, pl 3.4 3.3 - 4.9 mmol/L [facility] Chloride 110 97 - 110 mmol/L [facility] CO2 22 22 - 32 mmol/L [facility] Anion gap 11 2 - 15 mmol/L [facility] BUN 25 6 - 25 mg/dL [facility] Creatinine 1.16(H) 0.60 - 1.10 mg/dL [facility] Glucose 77 70 - 199 mg/dL [facility] Comment: Interpretive Data Fasting glucose >/= 126 [...] 2022. Calcium 8.0(L) 8.5 - 10.3 mg/dL [facility] Bilirubin, total 0.3 0.1 - 1.2 mg/dL [facility] Protein, pl 6.0(L) 6.5 - 8.5 g/dL [facility] Albumin 2.1(L) 3.5 - 5.0 g/dL [facility] Alk phos 152(H) 40 - 130 Units/L [facility] ALT 12 7 - 45 Units/L [facility] AST 31 10 - 45 Units/L [facility] Blood 09/27/2024 5:42 AM [employer] 09/27/2024 5:55 AM [employer] Arnulfo Jordan MD LAB BLOOD ORDERABLES Final Result [facility] [address] Department [place] [address] * POCT glucose (09/27/2024 2:14 AM [employer]) [facility] Glucose, POC 78 70 - 199 mg/dL Comment: For Glucose values <35 mg/dl when Hematocrit is >60 mg/dl,the test may not accurately detect significant hypoglycemia,and testing in the Laboratory should be considered if clinically indicated. Blood 09/27/2024 2:14 AM [employer] 09/27/2024 2:14 AM [employer] Arnulfo Jordan MD LAB POCT ORDERABLES - DEVIC E Final Result Performing Organization Address [facility] de Phone Number [facility] [address] [facility] [place] [address] * POCT glucose (09/26/2024 9:41 PM [employer]) Glucose, POC 79 70 - 199 mg/dL Comment: For Glucose values <35 mg/dl when Hematocrit is >60 mg/dl,the test may not accurately detect significant hypoglycemia,and testing in the Laboratory should be considered if clinically indicated. Blood 09/26/2024 9:41 PM [employer] 09/26/2024 9:41 PM [employer] Result [facility] Arnulfo Jordan MD LAB POCT ORDERABLES - DEVIC E Final Result Performing Organization Address [facility] de Phone Number [facility] [address] [facility] [place] [address] * POCT glucose (09/26/2024 6:18 PM [employer]) Glucose, POC 91 70 - 199 mg/dL Comment: For Glucose values <35 mg/dl when Hematocrit is >60 mg/dl,the test may not accurately detect significant hypoglycemia,and testing in the Laboratory should be considered if clinically indicated. Blood 09/26/2024 6:18 PM [employer] 09/26/2024 6:18 PM [employer] Result [facility] Arnulfo Jordan MD LAB POCT ORDERABLES - DEVIC E Final Result Performing Organization Address [facility] de Phone Number [facility] [address] [facility] [place] [place] [address] * POCT glucose (09/26/2024 2:51 PM [employer]) Glucose, POC 89 70 - 199 mg/dL Comment: For Glucose values <35 mg/dl when Hematocrit is >60 mg/dl,the test may not accurately detect significant hypoglycemia,and testing in the Laboratory should be considered if clinically indicated. Blood 09/26/2024 2:51 PM [employer] 09/26/2024 2:51 PM [employer] Arnulfo Jordan MD LAB POCT ORDERABLES - DEVIC E Final Result [facility] [address] Department of Laboratories [place], [place] [id number] * (ABNORMAL) CBC with auto differential (09/26/2024 2:03 PM [employer]) [facility] WBC 8.6 3.8 - 9.9 K/cumm Hgb 7.3(L) 11.9 - 15.5 g/dL [facility] Hct 24.2(L) 35.6 - 45.5 % [facility] Plt 308 150 - 400 K/cumm [facility] MPV 11.5 9.1 - 12.3 fL [facility] RBC 2.52(L) 3.90 - 5.20 M/cumm [facility] MCV 96.0 81.3 - 96.4 fL [facility] MCH 29.0 27.1 - 33.3 pg [facility] MCHC 30.2(L) 32.3 - 35.7 g/dL [facility] RDW CV 16.0(H) 11.1 - 14.9 % [facility] RDW SD 55.1(H) 35.7 - 48.1 fL [facility] NRBC abs 0.00 0.00 - 0.01 K/cumm [facility] Blood 09/26/2024 2:03 PM [employer] 09/26/2024 2:11 PM [employer] Arnulfo Jordan MD LAB BLOOD ORDERABLES Final Result [facility] [employer] [address] Department [place] [address] * (ABNORMAL) eGFR (09/26/2024 1:25 PM [employer]) Pathologist [facility] eGFR 57(L) >=60 mL/min/1. 73 m2 Comment: [...] last reviewed 2021. Blood 09/26/2024 1:25 PM [employer] 09/26/2024 1:33 PM [employer] us Arnulfo Jordan MD LAB BLOOD ORDERABLES Final Result [facility] [employer] [address] Department [place] [address] * Differential, auto (09/26/2024 1:25 PM [employer]) Pathologist [facility] Neutrophil abs See Comment 1.5 - 6.5 Comment:CBC to be recollecte d due to possible falsely low Hgb on09/26/2024 13:53:40 [employer] [id number] Imm gran abs See Comment 0.0 - 0.1 [facility] Comment:CBC to be recollecte d due to possible falsely low Hgb on09/26/2024 13:53:40 [employer] [id number] Lymphocyte abs See Comment 0.8 - 3.3 [facility] Comment:CBC to be recollecte d due to possible falsely low Hgb on09/26/2024 13:53:40 [employer] [id number] Monocyte abs See Comment 0.2 - 0.8 [facility] Comment:CBC to be recollecte d due to possible falsely low Hgb on09/26/2024 13:53:40 [employer] [id number] Eosinophil abs See Comment 0.0 - 0.5 [facility] Comment:CBC to be recollecte d due to possible falsely low Hgb on09/26/2024 13:53:40 [employer] [id number] Basophil abs See Comment 0.0 - 0.1 [facility] Comment:CBC to be recollecte d due to possible falsely low Hgb on09/26/2024 13:53:40 [employer] [id number] Neutrophil pct See Comment [facility] Comment: CBC to be recollected due to possible falsely low Hgb on09/26/2024 13:53:40 [employer] [id number] Interpretive Data Percent cell count reference ranges are not reported, since discordance with absolute values may lead to misinterpretation of CBC data. Current Interpretive Data was last revised on 2017. Imm gran pct See Comment [facility] Comment: CBC to be recollected due to possible falsely low Hgb on09/26/2024 13:53:40 [employer] [id number] Interpretive Data Percent cell count reference ranges are not reported, since discordance with absolute values may lead to misinterpretation of CBC data. Current Interpretive Data was last revised on 2017. Lymphocyte pct See Comment [facility] Comment: CBC to be recollected due to possible falsely low Hgb on09/26/2024 13:53:40 [employer] [id number] Interpretive Data Percent cell count reference ranges are not reported, since discordance with absolute values may lead to misinterpretation of CBC data. Current Interpretive Data was last revised on 2017. Monocyte pct See Comment [facility] Comment: CBC to be recollected due to possible falsely low Hgb on09/26/2024 13:53:40 [employer] [id number] Interpretive Data Percent cell count reference ranges are not reported, since discordance with absolute values may lead to misinterpretation of CBC data. Current Interpretive Data was last revised on 2017. Eosinophil pct See Comment [facility] Comment: CBC to be recollected due to possible falsely low Hgb on09/26/2024 13:53:40 [employer] [id number] Interpretive Data Percent cell count reference ranges are not reported, since discordance with absolute values may lead to misinterpretation of CBC data. Current Interpretive Data was last revised on 2017. Basophil pct See Comment [facility] Comment: CBC to be recollected due to possible falsely low Hgb on09/26/2024 13:53:40 [employer] [id number] Interpretive Data Percent cell count reference ranges are not reported, since discordance with absolute values may lead to misinterpretation of CBC data. Current Interpretive Data was last revised on 2017. Blood 09/26/2024 1:25 PM [employer] 09/26/2024 1:33 PM [employer] Arnulfo Jordan MD LAB BLOOD ORDERABLES Edited Result - Final [facility] [address] Department [place] [address] * CBC with auto differential (09/26/2024 1:25 PM [employer]) WBC See Comment 3.8 - 9.9 Comment: Test results inaccurately filed to this patient's record. Test will be credited. CBC to be recollected due to possible falsely low Hgb on09/26/2024 13:53:40 [employer] [id number] Hgb See Comment 11.9 - 15.5 [facility] Comment: Test results inaccurately filed to this patient's record. Test will be credited. CBC to be recollected due to possible falsely low Hgb on09/26/2024 13:53:40 [employer] [id number] Hct See Comment 35.6 - 45.5 [facility] Comment: Test results inaccurately filed to this patient's record. Test will be credited. CBC to be recollected due to possible falsely low Hgb on09/26/2024 13:53:40 [employer] [id number] Plt See Comment 150 - 400 K/cumm [facility] Comment: Test results inaccurately filed to this patient's record. Test will be credited. CBC to be recollected due to possible falsely low Hgb on09/26/2024 13:53:40 [employer] [id number] MPV See Comment 9.1 - 12.3 [facility] Comment: Test results inaccurately filed to this patient's record. Test will be credited. CBC to be recollected due to possible falsely low Hgb on09/26/2024 13:53:40 [employer] [id number] RBC See Comment 3.90 - 5.20 [facility] Comment: Test results inaccurately filed to this patient's record. Test will be credited. CBC to be recollected due to possible falsely low Hgb on09/26/2024 13:53:40 [employer] [id number] MCV See Comment 81.3 - 96.4 [facility] Comment: Test results inaccurately filed to this patient's record. Test will be credited. CBC to be recollected due to possible falsely low Hgb on09/26/2024 13:53:40 [employer] [id number] MCH See Comment 27.1 - 33.3 [facility] Comment: Test results inaccurately filed to this patient's record. Test will be credited. CBC to be recollected due to possible falsely low Hgb on09/26/2024 13:53:40 [employer] [id number] MCHC See Comment 32.3 - 35.7 [facility] Comment: Test results inaccurately filed to this patient's record. Test will be credited. CBC to be recollected due to possible falsely low Hgb on09/26/2024 13:53:40 [employer] [id number] RDW CV See Comment 11.1 - 14.9 [facility] Comment: Test results inaccurately filed to this patient's record. Test will be credited. CBC to be recollected due to possible falsely low Hgb on09/26/2024 13:53:40 [employer] [id number] RDW SD See Comment 35.7 - 48.1 [facility] Comment: Test results inaccurately filed to this patient's record. Test will be credited. CBC to be recollected due to possible falsely low Hgb on09/26/2024 13:53:40 [employer] [id number] NRBC abs See Comment 0.00 - 0.01 K/cumm [facility] Comment:CBC to be recollecte d due to possible falsely low Hgb on09/26/2024 13:53:40 [employer] [id number] Blood 09/26/2024 1:25 PM [employer] 09/26/2024 1:33 PM [employer] us Arnulfo Jordan MD LAB BLOOD ORDERABLES Edited Result - Final [facility] [address] Department [place] [address] * (ABNORMAL) Comprehensive metabolic panel (09/26/2024 1:25 PM [employer]) Sodium 142 135 - 145 mmol/L Potassium, pl 3.2(L) 3.3 - 4.9 mmol/L [facility] Chloride 112(H) 97 - 110 mmol/L [facility] CO2 21(L) 22 - 32 mmol/L [facility] Anion gap 9 2 - 15 mmol/L [facility] BUN 23 6 - 25 mg/dL [facility] Creatinine 1.18(H) 0.60 - 1.10 mg/dL [facility] Glucose 79 70 - 199 mg/dL [facility] Comment: Interpretive Data Fasting glucose >/= 126 [...] 2022. Calcium 7.4(L) 8.5 - 10.3 mg/dL [facility] Bilirubin, total 0.2 0.1 - 1.2 mg/dL [facility] Protein, pl 5.6(L) 6.5 - 8.5 g/dL [facility] Albumin 1.8(L) 3.5 - 5.0 g/dL [facility] Alk phos 135(H) 40 - 130 Units/L [facility] ALT 13 7 - 45 Units/L [facility] AST 32 10 - 45 Units/L [facility] Blood 09/26/2024 1:25 PM [employer] 09/26/2024 1:33 PM [employer] Arnulfo Jordan MD LAB BLOOD ORDERABLES Final Result Performing Organization Address [facility] Co de Phone Number [facility] [address] Department [place] [address] * POCT glucose (09/26/2024 10:10 AM [employer]) Glucose, POC 100 70 - 199 mg/dL Comment: For Glucose values <35 mg/dl when Hematocrit is >60 mg/dl,the test may not accurately detect significant hypoglycemia,and testing in the Laboratory should be considered if clinically indicated. Blood 09/26/2024 10:1 0 AM [employer] 09/26/2024 10:10 AM [employer] Arnulfo Jordan MD LAB POCT ORDERABLES - DEVIC E Final Result Performing Organization Address City/[facility] Co de Phone Number [facility] [address] Department [place] [address] * POCT glucose (09/26/2024 5:04 AM [employer]) Glucose, POC 94 70 - 199 mg/dL Comment: For Glucose values <35 mg/dl when Hematocrit is >60 mg/dl,the test may not accurately detect significant hypoglycemia,and testing in the Laboratory should be considered if clinically indicated. Blood 09/26/2024 5:04 AM [employer] 09/26/2024 5:04 AM [employer] rAnulfo Jordan MD LAB POCT ORDERABLES - DEVIC E Final Result Performing Organization Address [facility] Co de Phone Number [facility] [address] [place] [address] * C. difficile testing Stool (09/26/2024 2:18 AM [employer]) [facility] Result Negative Negative Toxin Result Negative Negative [facility] C. diff result Negative, free toxin Negative, free toxin [facility] C. diff interp Negative for toxigenic Clostridioides (Clostridium) difficile. Analysis was performed using a glutamate dehydrogenase antigen detection assay combined with a C. difficile toxin detection assay. [facility] Stool 09/26/2024 2:18 AM [employer] 09/26/2024 2:41 AM [employer] Arnulfo Jordan MD LAB MICROBIOLOGY - GENERAL ORDERABLES Final Result Performing Organization Address [facility] de Phone Number [facility] [address] [place] [address] * POCT glucose (09/26/2024 12:01 AM [employer]) [facility] Glucose, POC 108 70 - 199 mg/dL Comment: For Glucose values <35 mg/dl when Hematocrit is >60 mg/dl,the test may not accurately detect significant hypoglycemia,and testing in the Laboratory should be considered if clinically indicated. Blood 09/26/2024 12:0 1 AM [employer] 09/26/2024 12:01 AM [employer] us Arnulfo Jordan MD LAB POCT ORDERABLES - DEVIC E Final Result Performing Organization Address [facility] Co de Phone Number [facility] [address] [place] [address] * POCT glucose (09/25/2024 8:35 PM [employer]) Glucose, POC 92 70 - 199 mg/dL Comment: For Glucose values <35 mg/dl when Hematocrit is >60 mg/dl,the test may not accurately detect significant hypoglycemia,and testing in the Laboratory should be considered if clinically indicated. Blood 09/25/2024 8:35 PM [employer] 09/25/2024 8:35 PM [employer] Arnulfo Jordan MD LAB POCT ORDERABLES - DEVIC E Final Result Performing Organization Address [facility] de Phone Number [facility] [address] [facility] [place] [address] * POCT glucose (09/25/2024 4:36 PM [employer]) Glucose, POC 97 70 - 199 mg/dL Comment: For Glucose values <35 mg/dl when Hematocrit is >60 mg/dl,the test may not accurately detect significant hypoglycemia,and testing in the Laboratory should be considered if clinically indicated. Blood 09/25/2024 4:36 PM [employer] 09/25/2024 4:36 PM [employer] Result [facility] Arnulfo Jordan MD LAB POCT ORDERABLES - DEVIC E Final Result Performing Organization Address [facility] de Phone Number [facility] [address] [facility] [place] [address] * POCT glucose (09/25/2024 11:55 AM [employer]) Glucose, POC 87 70 - 199 mg/dL Comment: For Glucose values <35 mg/dl when Hematocrit is >60 mg/dl,the test may not accurately detect significant hypoglycemia,and testing in the Laboratory should be considered if clinically indicated. Blood 09/25/2024 11:5 5 AM [employer] 09/25/2024 11:55 AM [employer] Arnulfo Jordan MD LAB POCT ORDERABLES - DEVIC E Final Result Performing Organization Address [facility]/ZIP Co de Phone Number [facility] [employer] [address] Department [place] [address] * (ABNORMAL) eGFR (09/25/2024 8:32 AM [employer] [employer]) Pathologist [facility] eGFR 53(L) >=60 mL/min/1. 73 m2 Comment: [...] last reviewed 2021. Blood 09/25/2024 8:32 AM SUPERVISOR [employer] 09/25/2024 8:46 AM SUPERVISOR [employer] Arnulfo Jordan MD LAB BLOOD ORDERABLES Final Result Performing Organization Address [facility]/ZIP Co de Phone Number [facility] [employer] [address] Department [place] [address] * (ABNORMAL) Differential, auto (09/25/2024 8:32 AM SUPERVISOR [employer]) Pathologist [facility] Neutrophil abs 7.2(H) 1.5 - 6.5 K/cumm Imm gran abs 0.1 0.0 - 0.1 K/cumm [facility] Lymphocyte abs 1.1 0.8 - 3.3 K/cumm [facility] Monocyte abs 0.7 0.2 - 0.8 K/cumm [facility] Eosinophil abs 0.2 0.0 - 0.5 K/cumm [facility] Basophil abs 0.1 0.0 - 0.1 K/cumm [facility] Neutrophil pct 78.5 % [facility] Comment: Interpretive Data Percent cell count reference ranges are not reported, since discordance with absolute values may lead to misinterpretation of CBC data. Current Interpretive Data was last revised on 2017. Imm gran pct 0.5 % [facility] Comment: Interpretive Data Percent cell count reference ranges are not reported, since discordance with absolute values may lead to misinterpretation of CBC data. Current Interpretive Data was last revised on 2017. Lymphocyte pct 11.6 % [facility] Comment: Interpretive Data Percent cell count reference ranges are not reported, since discordance with absolute values may lead to misinterpretation of CBC data. Current Interpretive Data was last revised on 2017. Monocyte pct 7.3 % [facility] Comment: Interpretive Data Percent cell count reference ranges are not reported, since discordance with absolute values may lead to misinterpretation of CBC data. Current Interpretive Data was last revised on 2017. Eosinophil pct 1.6 % [facility] Comment: Interpretive Data Percent cell count reference ranges are not reported, since discordance with absolute values may lead to misinterpretation of CBC data. Current Interpretive Data was last revised on 2017. Basophil pct 0.5 % [facility] Comment: Interpretive Data Percent cell count reference ranges are not reported, since discordance with absolute values may lead to misinterpretation of CBC data. Current Interpretive Data was last revised on 2017. Blood 09/25/2024 8:32 AM SUPERVISOR [employer] 09/25/2024 8:46 AM SUPERVISOR [employer] us Arnulfo Jordan MD LAB BLOOD ORDERABLES Final Result [facility] [address] Department of Laboratories [place], [place] [id number] * POCT glucose (09/25/2024 8:32 AM SUPERVISOR [employer]) Glucose, POC 89 70 - 199 mg/dL Comment: For Glucose values <35 mg/dl when Hematocrit is >60 mg/dl,the test may not accurately detect significant hypoglycemia,and testing in the Laboratory should be considered if clinically indicated. Blood 09/25/2024 8:32 AM SUPERVISOR [employer] 09/25/2024 8:32 AM SUPERVISOR [employer] Arnulfo Jordan MD LAB POCT ORDERABLES - DEVIC E Final Result Performing Organization Address [facility]/ZIP Co de Phone Number [facility] [address] [place] [address] * (ABNORMAL) CBC with auto differential (09/25/2024 8:32 AM SUPERVISOR [employer]) WBC 9.2 3.8 - 9.9 K/cumm Hgb 7.2(L) 11.9 - 15.5 g/dL [facility] Hct 24.6(L) 35.6 - 45.5 % [facility] Plt 259 150 - 400 K/cumm [facility] MPV 11.7 9.1 - 12.3 fL [facility] RBC 2.49(L) 3.90 - 5.20 M/cumm [facility] MCV 98.8(H) 81.3 - 96.4 fL [facility] MCH 28.9 27.1 - 33.3 pg [facility] MCHC 29.3(L) 32.3 - 35.7 g/dL [facility] RDW CV 15.8(H) 11.1 - 14.9 % [facility] RDW SD 55.9(H) 35.7 - 48.1 fL [facility] NRBC abs 0.00 0.00 - 0.01 K/cumm [facility] Blood 09/25/2024 8:32 AM SUPERVISOR [employer] 09/25/2024 8:46 AM SUPERVISOR [employer] Arnulfo Jordan MD LAB BLOOD ORDERABLES Final Result Performing Organization Address City/[facility]/ZIP Co de Phone Number [facility] [employer] [address] Department [employer] [place], [place] [id number] * (ABNORMAL) Comprehensive metabolic panel (09/25/2024 8:32 AM SUPERVISOR [employer]) Sodium 143 135 - 145 mmol/L Potassium, pl 3.2(L) 3.3 - 4.9 mmol/L [facility] Chloride 111(H) 97 - 110 mmol/L [facility] CO2 20(L) 22 - 32 mmol/L [facility] Anion gap 12 2 - 15 mmol/L [facility] BUN 26(H) 6 - 25 mg/dL [facility] Creatinine 1.24(H) 0.60 - 1.10 mg/dL [facility] Glucose 85 70 - 199 mg/dL [facility] Comment: Interpretive Data Fasting glucose >/= 126 [...] 2022. Calcium 7.7(L) 8.5 - 10.3 mg/dL [facility] Bilirubin, total 0.2 0.1 - 1.2 mg/dL [facility] Protein, pl 5.8(L) 6.5 - 8.5 g/dL [facility] Albumin 1.9(L) 3.5 - 5.0 g/dL [facility] Alk phos 137(H) 40 - 130 Units/L [facility] ALT 13 7 - 45 Units/L [facility] AST 28 10 - 45 Units/L [facility] Blood 09/25/2024 8:32 AM SUPERVISOR [employer] 09/25/2024 8:46 AM SUPERVISOR [employer] us Arnulfo Jordan MD LAB BLOOD ORDERABLES Final Result [facility] [address] Department [place] [phone] * POCT glucose (09/25/2024 4:49 AM SUPERVISOR [employer]) Glucose, POC 86 70 - 199 mg/dL Comment: For Glucose values <35 mg/dl when Hematocrit is >60 mg/dl,the test may not accurately detect significant hypoglycemia,and testing in the Laboratory should be considered if clinically indicated. Blood 09/25/2024 4:49 AM SUPERVISOR [employer] 09/25/2024 4:49 AM SUPERVISOR [employer] Arnulfo Jordan MD LAB POCT ORDERABLES - DEVIC E Final Result Performing Organization Address [facility] Co de Phone Number [facility] [employer] [address] [facility] [place] [address] * POCT glucose (09/25/2024 12:48 AM SUPERVISOR [employer]) Glucose, POC 83 70 - 199 mg/dL Comment: For Glucose values <35 mg/dl when Hematocrit is >60 mg/dl,the test may not accurately detect significant hypoglycemia,and testing in the Laboratory should be considered if clinically indicated. Blood 09/25/2024 12:4 8 AM SUPERVISOR [employer] 09/25/2024 12:48 AM SUPERVISOR [employer] Arnulfo Jordan MD LAB POCT ORDERABLES - DEVIC E Final Result Performing Organization Address City/[facility] Co de Phone Number [facility] [employer] [address] [facility] [place] [address] * POCT glucose (09/24/2024 8:56 PM SUPERVISOR [employer]) Glucose, POC 83 70 - 199 mg/dL Comment: For Glucose values <35 mg/dl when Hematocrit is >60 mg/dl,the test may not accurately detect significant hypoglycemia,and testing in the Laboratory should be considered if clinically indicated. Blood 09/24/2024 8:56 PM SUPERVISOR [employer] 09/24/2024 8:56 PM SUPERVISOR [employer] Arnulfo Jordan MD LAB POCT ORDERABLES - DEVIC E Final Result Performing Organization Address [facility] Co de Phone Number [facility] [employer] [address] [facility] [place] [address] * POCT glucose (09/24/2024 4:20 PM SUPERVISOR [employer]) Glucose, POC 83 70 - 199 mg/dL Comment: For Glucose values <35 mg/dl when Hematocrit is >60 mg/dl,the test may not accurately detect significant hypoglycemia,and testing in the Laboratory should be considered if clinically indicated. Blood 09/24/2024 4:20 PM SUPERVISOR [employer] 09/24/2024 4:20 PM SUPERVISOR [employer] Arnulfo Jordan MD LAB POCT ORDERABLES - DEVIC E Final Result Performing Organization Address [facility] Co de Phone Number [facility] [employer] [address] [facility] [place] [address] * POCT glucose (09/24/2024 12:13 PM SUPERVISOR [employer]) Glucose, POC 91 70 - 199 mg/dL Comment: For Glucose values <35 mg/dl when Hematocrit is >60 mg/dl,the test may not accurately detect significant hypoglycemia,and testing in the Laboratory should be considered if clinically indicated. Blood 09/24/2024 12:1 3 PM [employer]PER[employer]OR [employer] 09/24/2024 12:13 PM [employer]PERVISOR [employer] Arnulfo Jordan MD LAB POCT ORDERABLES - DEVIC E Final Result Performing Organization Address [facility] Co de Phone Number [facility] [employer] [address] [facility] [employer] [place], [place] [id number] * XR Chest 1 View (09/24/2024 8:18 AM SUPERVISOR [employer]) Anatomical Region Laterality Modality Body, Chest N/A Computed Radiogr aphy 09/24/2024 8:36 AM SUPERVISOR [employer] Impressions 09/24/2024 8:36 AM SUPERVISOR [employer] Patchy airspace opacities greatest in the left lung base but also projecting over the left hilum and to a lesser extent the right hilum are not substantially changed and likely representing multifocal pneumonia and/or sequela of aspiration. Trace left pleural effusion. No right pleural effusion. No pneumothorax. Heart size is stable. Electronically signed by: Nithin Gonzalez MD, PHD Narrative 09/24/2024 8:36 AM SUPERVISOR [employer] EXAMINATION: XR CHEST 1 VIEW HISTORY: Shortness [...] lt * POCT glucose (09/24/2024 4:12 AM SUPERVISOR [employer]) [facility] Glucose, POC 129 70 - 199 mg/dL Comment: For Glucose values <35 mg/dl when Hematocrit is >60 mg/dl,the test may not accurately detect significant hypoglycemia,and testing in the Laboratory should be considered if clinically indicated. Blood 09/24/2024 4:12 AM SUPERVISOR [employer] 09/24/2024 4:12 AM SUPERVISOR [employer] us Arnulfo Jordan MD LAB POCT ORDERABLES - DEVIC E Final Result [facility] [employer] [address] Department [place] [address] * POCT glucose (09/24/2024 2:44 AM SUPERVISOR [employer]) Glucose, POC 132 70 - 199 mg/dL Comment: For Glucose values <35 mg/dl when Hematocrit is >60 mg/dl,the test may not accurately detect significant hypoglycemia,and testing in the Laboratory should be considered if clinically indicated. Blood 09/24/2024 2:44 AM SUPERVISOR [employer] 09/24/2024 2:44 AM SUPERVISOR [employer] Arnulfo Jordan MD LAB POCT ORDERABLES - DEVIC E Final Result Performing Organization Address [facility] de Phone Number [facility] [address] [facility] [place] [address] * (ABNORMAL) POCT glucose (09/24/2024 1:06 AM SUPERVISOR [employer]) Glucose, POC 59(L) 70 - 199 mg/dL Comment: For Glucose values <35 mg/dl when Hematocrit is >60 mg/dl,the test may not accurately detect significant hypoglycemia,and testing in the Laboratory should be considered if clinically indicated. Blood 09/24/2024 1:06 AM SUPERVISOR [employer] 09/24/2024 1:06 AM SUPERVISOR [employer] Arnulfo Jordan MD LAB POCT ORDERABLES - DEVIC E Final Result Performing Organization Address [facility] de Phone Number [facility] [address] [facility] [place] [address] * (ABNORMAL) POCT glucose (09/24/2024 12:44 AM SUPERVISOR [employer]) Glucose, POC 65(L) 70 - 199 mg/dL Comment: For Glucose values <35 mg/dl when Hematocrit is >60 mg/dl,the test may not accurately detect significant hypoglycemia,and testing in the Laboratory should be considered if clinically indicated. Blood 09/24/2024 12:4 4 AM SUPERVISOR [employer] 09/24/2024 12:44 AM SUPERVISOR [employer] Arnulfo Jordan MD LAB POCT ORDERABLES - DEVIC E Final Result Performing Organization Address [facility] Co de Phone Number [facility] [address] [facility] [place] [address] * (ABNORMAL) POCT glucose (09/24/2024 12:22 AM SUPERVISOR [employer]) Glucose, POC 68(L) 70 - 199 mg/dL Comment: For Glucose values <35 mg/dl when Hematocrit is >60 mg/dl,the test may not accurately detect significant hypoglycemia,and testing in the Laboratory should be considered if clinically indicated. Blood 09/24/2024 12:2 2 AM SUPERVISOR [employer] 09/24/2024 12:22 AM SUPERVISOR [employer] Arnulfo Jordan MD LAB POCT ORDERABLES - DEVIC E Final Result Performing Organization Address [facility] de Phone Number [facility] [address] [facility] [place] [address] * POCT glucose (09/23/2024 9:34 PM SUPERVISOR [employer]) Glucose, POC 80 70 - 199 mg/dL Comment: For Glucose values <35 mg/dl when Hematocrit is >60 mg/dl,the test may not accurately detect significant hypoglycemia,and testing in the Laboratory should be considered if clinically indicated. Blood 09/23/2024 9:34 PM SUPERVISOR [employer] 09/23/2024 9:34 PM [employer]PER[employer]OR [employer] Guillermo Nair DO LAB POCT ORDERABLES - DE VICE Final Result Performing Organization Address [facility] Co de Phone Number [facility] [address] [facility] [place] [address] * POCT glucose (09/23/2024 4:10 PM SUPERVISOR [employer]) Glucose, POC 121 70 - 199 mg/dL Comment: For Glucose values <35 mg/dl when Hematocrit is >60 mg/dl,the test may not accurately detect significant hypoglycemia,and testing in the Laboratory should be considered if clinically indicated. Blood 09/23/2024 4:10 PM SUPERVISOR [employer] 09/23/2024 4:10 PM SUPERVISOR [employer] Guillermo Nair DO LAB POCT ORDERABLES - DE VICE Final Result Performing Organization Address [facility] Co de Phone Number [facility] [employer] [address] [place] [address] * POCT glucose (09/23/2024 1:10 PM SUPERVISOR [employer]) Glucose, POC 115 70 - 199 mg/dL Comment: For Glucose values <35 mg/dl when Hematocrit is >60 mg/dl,the test may not accurately detect significant hypoglycemia,and testing in the Laboratory should be considered if clinically indicated. Blood 09/23/2024 1:10 PM SUPERVISOR [employer] 09/23/2024 1:10 PM SUPERVISOR [employer] Flo Villagran MD LAB POCT ORDERABLES - DEVICE Final Result Performing Organization Address [facility] Co de Phone Number [facility] [address] [facility] [place] [address] * POCT glucose (09/23/2024 12:18 PM SUPERVISOR [employer]) Glucose, POC 83 70 - 199 mg/dL Comment: For Glucose values <35 mg/dl when Hematocrit is >60 mg/dl,the test may not accurately detect significant hypoglycemia,and testing in the Laboratory should be considered if clinically indicated. Blood 09/23/2024 12:1 8 PM SUPERVISOR [employer] 09/23/2024 12:18 PM SUPERVISOR [employer] Flo Villagran MD LAB POCT ORDERABLES - DEVICE Final Result Performing Organization Address [facility]/ZIP Co de Phone Number [facility] [address] [place] [address] * (ABNORMAL) POCT glucose (09/23/2024 11:55 AM SUPERVISOR [employer]) Glucose, POC 69(L) 70 - 199 mg/dL Comment: For Glucose values <35 mg/dl when Hematocrit is >60 mg/dl,the test may not accurately detect significant hypoglycemia,and testing in the Laboratory should be considered if clinically indicated. Blood 09/23/2024 11:5 5 AM SUPERVISOR [employer] 09/23/2024 11:55 AM SUPERVISOR [employer] Flo Villagran MD LAB POCT ORDERABLES - DEVICE Final Result Performing Organization Address [facility] de Phone Number [facility] [address] [facility] [place] [address] * (ABNORMAL) POCT glucose (09/23/2024 11:54 AM SUPERVISOR [employer]) Glucose, POC 63(L) 70 - 199 mg/dL Comment: For Glucose values <35 mg/dl when Hematocrit is >60 mg/dl,the test may not accurately detect significant hypoglycemia,and testing in the Laboratory should be considered if clinically indicated. Blood 09/23/2024 11:5 4 AM SUPERVISOR [employer] 09/23/2024 11:54 AM SUPERVISOR [employer] Flo Villagran MD LAB POCT ORDERABLES - DEVICE Final Result Performing Organization Address [facility] de Phone Number [facility] [address] [facility] [place] [address] * POCT glucose (09/23/2024 7:47 AM SUPERVISOR [employer]) Glucose, POC 71 70 - 199 mg/dL Comment: For Glucose values <35 mg/dl when Hematocrit is >60 mg/dl,the test may not accurately detect significant hypoglycemia,and testing in the Laboratory should be considered if clinically indicated. Blood 09/23/2024 7:47 AM SUPERVISOR [employer] 09/23/2024 7:47 AM SUPERVISOR [employer] Flo Villagran MD LAB POCT ORDERABLES - DEVICE Final Result Performing Organization Address [facility] de Phone Number [facility] [employer] [address] [facility] [place] [address] * POCT glucose (09/23/2024 3:27 AM SUPERVISOR [employer]) Glucose, POC 92 70 - 199 mg/dL Comment: For Glucose values <35 mg/dl when Hematocrit is >60 mg/dl,the test may not accurately detect significant hypoglycemia,and testing in the Laboratory should be considered if clinically indicated. Blood 09/23/2024 3:27 AM SUPERVISOR [employer] 09/23/2024 3:27 AM SUPERVISOR [employer] Flo Villagran MD LAB POCT ORDERABLES - DEVICE Final Result Performing Organization Address [facility] de Phone Number [facility] [employer] [address] [facility] [place] [address] * POCT glucose (09/23/2024 1:13 AM SUPERVISOR [employer]) Glucose, POC 113 70 - 199 mg/dL Comment: For Glucose values <35 mg/dl when Hematocrit is >60 mg/dl,the test may not accurately detect significant hypoglycemia,and testing in the Laboratory should be considered if clinically indicated. Blood 09/23/2024 1:13 AM SUPERVISOR [employer] 09/23/2024 1:13 AM SUPERVISOR [employer] Flo Villagran MD LAB POCT ORDERABLES - DEVICE Final Result Performing Organization Address [facility] Co de Phone Number [facility] [address] [facility] [place] [address] * POCT glucose (09/23/2024 12:17 AM SUPERVISOR [employer]) Glucose, POC 195 70 - 199 mg/dL Comment: For Glucose values <35 mg/dl when Hematocrit is >60 mg/dl,the test may not accurately detect significant hypoglycemia,and testing in the Laboratory should be considered if clinically indicated. Blood 09/23/2024 12:1 7 AM SUPER[employer]OR [employer] 09/23/2024 12:17 AM SUPERVISOR [employer] Flo Villagran MD LAB POCT ORDERABLES - DEVICE Final Result Performing Organization Address [facility] de Phone Number [facility] [address] Department [place] [address] * (ABNORMAL) POCT glucose (09/22/2024 11:54 PM SUPERVISOR [employer]) Glucose, POC 63(L) 70 - 199 mg/dL Comment: For Glucose values <35 mg/dl when Hematocrit is >60 mg/dl,the test may not accurately detect significant hypoglycemia,and testing in the Laboratory should be considered if clinically indicated. Blood 09/22/2024 11:5 4 PM [employer]PER[employer]OR [employer] 09/22/2024 11:54 PM SUPERVISOR [employer] Flo Villagran MD LAB POCT ORDERABLES - DEVICE Final Result Performing Organization Address [facility] de Phone Number [facility] [address] Department [place] [address] * (ABNORMAL) Blood gas, arterial (09/22/2024 8:33 PM SUPERVISOR [employer]) pH, Art 7.44 7.35 - 7.45 PCO2, Arterial 37 35 - 45 mmHg [facility] PO2, Arterial 81(L) 83 - 108 mmHg [facility] HCO3 Art (Calculated) 25 20 - 30 mmol/L [facility] BE, art 1 mmol/L [facility] Comment: Interpretive Data No Reference Range Established Current Interpretive Data was last revised on 2017 O2 Sat Art (Calculated) 96 94 - 98 % [facility] Blood 09/22/2024 8:33 PM [employer]PER[employer]OR [employer] 09/22/2024 8:36 PM [employer]PERVISOR [employer] Chad Veras MD LAB BLOOD ORDERABLES Final R esult Performing Organization Address [facility] Co de Phone Number [facility] [employer] [address] [address] * POCT glucose (09/22/2024 7:46 PM SUPERVISOR [employer]) Glucose, POC 95 70 - 199 mg/dL Comment: For Glucose values <35 mg/dl when Hematocrit is >60 mg/dl,the test may not accurately detect significant hypoglycemia,and testing in the Laboratory should be considered if clinically indicated. Blood 09/22/2024 7:46 PM SUPER[employer]OR [employer] 09/22/2024 7:46 PM SUPER[employer]OR [employer] Flo Villagran MD LAB POCT ORDERABLES - DEVICE Final Result Performing Organization Address City/[facility]/ZIP Co de Phone Number [facility] [employer] [place] [address] * POCT glucose (09/22/2024 4:04 PM SUPERVISOR [employer]) Glucose, POC 166 70 - 199 mg/dL Comment: For Glucose values <35 mg/dl when Hematocrit is >60 mg/dl,the test may not accurately detect significant hypoglycemia,and testing in the Laboratory should be considered if clinically indicated. Blood 09/22/2024 4:04 PM SUPER[employer]OR [employer] 09/22/2024 4:04 PM SUPER[employer]OR [employer] Flo Villagran MD LAB POCT ORDERABLES - DEVICE Final Result Performing Organization Address City/[facility] Co de Phone Number [facility] [facility] [address] [place] [place] [address] * POCT glucose (09/22/2024 11:51 AM [employer]) Glucose, POC 187 70 - 199 mg/dL Comment: For Glucose values <35 mg/dl when Hematocrit is >60 mg/dl,the test may not accurately detect significant hypoglycemia,and testing in the Laboratory should be considered if clinically indicated. Blood 09/22/2024 11:5 1 AM [employer] 09/22/2024 11:51 AM [employer] Flo Villagran MD LAB POCT ORDERABLES - DEVICE Final Result Performing Organization Address [facility] de Phone Number [facility] [address] [facility] [employer] [place], [place] [id number] * (ABNORMAL) POCT glucose (09/22/2024 8:42 AM [employer]) Glucose, POC 210(H) 70 - 199 mg/dL Comment: For Glucose values <35 mg/dl when Hematocrit is >60 mg/dl,the test may not accurately detect significant hypoglycemia,and testing in the Laboratory should be considered if clinically indicated. Blood 09/22/2024 8:42 AM [employer] 09/22/2024 8:42 AM [employer] Flo Villagran MD LAB POCT ORDERABLES - DEVICE Final Result Performing Organization Address [facility] de Phone Number [facility] [address] [facility] [place] [address] * POCT glucose (09/22/2024 4:05 AM [employer]) Glucose, POC 199 70 - 199 mg/dL Comment: For Glucose values <35 mg/dl when Hematocrit is >60 mg/dl,the test may not accurately detect significant hypoglycemia,and testing in the Laboratory should be considered if clinically indicated. Blood 09/22/2024 4:05 AM [employer] 09/22/2024 4:05 AM [employer] Flo Villagran MD LAB POCT ORDERABLES - DEVICE Final Result Performing Organization Address [facility] de Phone Number [facility] [address] [facility] [employer] [place], [place] [id number] * XR Chest 1 View (09/22/2024 3:59 AM [employer]) Anatomical Region Laterality Modality Body, Chest N/A Computed Radiogr aphy 09/22/2024 9:18 AM [employer] Impressions 09/22/2024 9:18 AM [employer] The current study is compared with the [...] Blair Lopez M.D. Narrative 09/22/2024 9:18 AM [employer] EXAMINATION: XR CHEST 1 VIEW Procedure Note [...] lt * (ABNORMAL) eGFR (09/22/2024 2:24 AM [employer]) eGFR 53(L) >=60 mL/min/1. 73 m2 Comment: [...] last reviewed 2021. Blood 09/22/2024 2:24 AM [employer] 09/22/2024 2:55 AM [employer] us Flo Villagran MD LAB BLOOD ORDERABLES Final R esult [facility] [address] Department [place] [address] * (ABNORMAL) CBC without differential (09/22/2024 2:24 AM [employer]) WBC 15.1(H) 3.8 - 9.9 K/cumm Hgb 7.5(L) 11.9 - 15.5 g/dL [facility] Hct 23.4(L) 35.6 - 45.5 % [facility] Plt 248 150 - 400 K/cumm [facility] MPV 12.5(H) 9.1 - 12.3 fL [facility] RBC 2.55(L) 3.90 - 5.20 M/cumm [facility] MCV 91.8 81.3 - 96.4 fL [facility] MCH 29.4 27.1 - 33.3 pg [facility] MCHC 32.1(L) 32.3 - 35.7 g/dL [facility] RDW CV 15.2(H) 11.1 - 14.9 % [facility] RDW SD 50.1(H) 35.7 - 48.1 fL [facility] NRBC abs 0.00 0.00 - 0.01 K/cumm [facility] Blood 09/22/2024 2:24 AM [employer] 09/22/2024 2:40 AM [employer] Flo Villagran MD LAB BLOOD ORDERABLES Final R esult Performing Organization Address [facility] Co de Phone Number [facility] [address] [place] [address] * Magnesium (09/22/2024 2:24 AM [employer]) [facility] Magnesium 2.0 1.4 - 2.5 mg/dL Blood 09/22/2024 2:24 AM [employer] 09/22/2024 2:55 AM [employer] Flo Villagran MD LAB BLOOD ORDERABLES Final R esult Performing Organization Address [facility] de Phone Number [facility] [address] [place] [address] * (ABNORMAL) Renal function panel (09/22/2024 2:24 AM [employer]) [facility] Sodium 140 135 - 145 mmol/L Potassium, pl 3.4 3.3 - 4.9 mmol/L [facility] Chloride 108 97 - 110 mmol/L [facility] CO2 20(L) 22 - 32 mmol/L [facility] Anion gap 12 2 - 15 mmol/L [facility] BUN 31(H) 6 - 25 mg/dL [facility] Creatinine 1.25(H) 0.60 - 1.10 mg/dL [facility] Glucose 189 70 - 199 mg/dL [facility] Comment: Interpretive Data Fasting glucose >/= 126 [...] 2022. Calcium 7.5(L) 8.5 - 10.3 mg/dL [facility] Phosphorus, pl 3.6 2.3 - 4.5 mg/dL [facility] Albumin 2.1(L) 3.5 - 5.0 g/dL [facility] Blood 09/22/2024 2:24 AM [employer] 09/22/2024 2:55 AM [employer] Flo Villagran MD LAB BLOOD ORDERABLES Final R esult Performing Organization Address [facility] Co de Phone Number [facility] [address] Department [place] [address] * POCT glucose (09/21/2024 11:58 PM [employer]) Glucose, POC 177 70 - 199 mg/dL Comment: For Glucose values <35 mg/dl when Hematocrit is >60 mg/dl,the test may not accurately detect significant hypoglycemia,and testing in the Laboratory should be considered if clinically indicated. Blood 09/21/2024 11:5 8 PM [employer] 09/21/2024 11:58 PM [employer] Result [facility] Flo Villagran MD LAB POCT ORDERABLES - DEVICE Final Result Performing Organization Address [facility] de Phone Number [facility] [address] Department [place] [address] * POCT glucose (09/21/2024 7:01 PM [employer]) Glucose, POC 134 70 - 199 mg/dL Comment: For Glucose values <35 mg/dl when Hematocrit is >60 mg/dl,the test may not accurately detect significant hypoglycemia,and testing in the Laboratory should be considered if clinically indicated. Blood 09/21/2024 7:01 PM [employer] 09/21/2024 7:01 PM [employer] Flo Villagran MD LAB POCT ORDERABLES - DEVICE Final Result Performing Organization Address [facility] Co de Phone Number [facility] [address] [facility] [place] [address] * POCT glucose (09/21/2024 3:10 PM [employer]) Glucose, POC 140 70 - 199 mg/dL Comment: For Glucose values <35 mg/dl when Hematocrit is >60 mg/dl,the test may not accurately detect significant hypoglycemia,and testing in the Laboratory should be considered if clinically indicated. Blood 09/21/2024 3:10 PM [employer] 09/21/2024 3:10 PM [employer] Flo Villagran MD LAB POCT ORDERABLES - DEVICE Final Result [facility] [address] [facility] [place] [address] * Potassium (09/21/2024 2:07 PM [employer]) [facility] Potassium, pl 3.9 3.3 - 4.9 mmol/L Blood 09/21/2024 2:07 PM [employer] 09/21/2024 2:07 PM [employer] Flo Villagran MD LAB BLOOD ORDERABLES Final R esult Performing Organization Address City/[facility]/ZIP Co de Phone Number [facility] [address] [facility] [place] [address] * (ABNORMAL) POCT glucose (09/21/2024 11:30 AM [employer]) Glucose, POC 200(H) 70 - 199 mg/dL Comment: For Glucose values <35 mg/dl when Hematocrit is >60 mg/dl,the test may not accurately detect significant hypoglycemia,and testing in the Laboratory should be considered if clinically indicated. Blood 09/21/2024 11:3 0 AM [employer] 09/21/2024 11:30 AM [employer] us Flo Villagran MD LAB POCT ORDERABLES - DEVICE Final Result Performing Organization Address [facility] Co de Phone Number [facility] [address] Department [place] [address] * (ABNORMAL) POCT glucose (09/21/2024 7:19 AM [employer]) [facility] Signature Glucose, POC 230(H) 70 - 199 mg/dL Comment: For Glucose values <35 mg/dl when Hematocrit is >60 mg/dl,the test may not accurately detect significant hypoglycemia,and testing in the Laboratory should be considered if clinically indicated. Blood 09/21/2024 7:19 AM [employer] 09/21/2024 7:19 AM [employer] Flo Villagran MD LAB POCT ORDERABLES - DEVICE Final Result Performing Organization Address [facility] Co de Phone Number [facility] [address] Department [place] [address] * XR Chest 1 View (09/21/2024 4:44 AM [employer]) Anatomical Region Laterality Modality Body, Chest N/A Computed Radiogr aphy 09/21/2024 7:37 AM [employer] Impressions 09/21/2024 7:37 AM [employer] Comparison is made to 2024. Endotracheal tube 2.7 cm above the jessenia. Nasogastric tube tip located with diaphragm, not included [id number]. There is slightly improved aeration within the left retrocardiac location likely representing improving aspiration/pneumonia. There is mild right basilar atelectasis. No pleural effusion or pneumothorax. Stable heart size. Electronically signed by: Ruiz Coles M.D. Narrative 09/21/2024 7:37 AM [employer] Examination: Chest 1 view Procedure Note Ruiz Coles MD - 09/21/2024 Examination: Chest 1 view IMPRESSION: Comparison is made to 2024. Endotracheal tube 2.7 cm above the jessenia. Nasogastric tube tip located with diaphragm, not included [id number]. There is slightly improved aeration within the left retrocardiac location likely representing improving aspiration/pneumonia. There is mild right basilar atelectasis. No pleural effusion or pneumothorax. Stable heart size. Electronically signed by: Ruiz Coles M.D. Flo Villagran MD IMG XR PROCEDURES Final Resu lt * (ABNORMAL) POCT glucose (09/21/2024 3:47 AM [employer]) Pathologist [facility] Glucose, POC 235(H) 70 - 199 mg/dL Comment: For Glucose values <35 mg/dl when Hematocrit is >60 mg/dl,the test may not accurately detect significant hypoglycemia,and testing in the Laboratory should be considered if clinically indicated. Blood 09/21/2024 3:47 AM [employer] 09/21/2024 3:47 AM [employer] Flo Villagran MD LAB POCT ORDERABLES - DEVICE Final Result [facility] [address] Department [place] [address] * (ABNORMAL) eGFR (09/21/2024 1:48 AM [employer]) Pathologist [facility] eGFR 50(L) >=60 mL/min/1. 73 m2 Comment: [...] last reviewed 2021. Blood 09/21/2024 1:48 AM [employer] 09/21/2024 2:06 AM [employer] Flo Villagran MD LAB BLOOD ORDERABLES Final R esult Performing Organization Address [facility] Co de Phone Number [facility] [address] [place] [employer] [place], [place] [id number] * (ABNORMAL) CBC without differential (09/21/2024 1:48 AM [employer]) [facility] WBC 13.1(H) 3.8 - 9.9 K/cumm Hgb 7.6(L) 11.9 - 15.5 g/dL [facility] Hct 24.6(L) 35.6 - 45.5 % [facility] Plt 229 150 - 400 K/cumm [facility] MPV 12.5(H) 9.1 - 12.3 fL [facility] RBC 2.65(L) 3.90 - 5.20 M/cumm [facility] MCV 92.8 81.3 - 96.4 fL [facility] MCH 28.7 27.1 - 33.3 pg [facility] MCHC 30.9(L) 32.3 - 35.7 g/dL [facility] RDW CV 15.5(H) 11.1 - 14.9 % [facility] RDW SD 51.8(H) 35.7 - 48.1 fL [facility] NRBC abs 0.00 0.00 - 0.01 K/cumm [facility] Blood 09/21/2024 1:48 AM [employer] 09/21/2024 2:06 AM [employer] Flo Villagran MD LAB BLOOD ORDERABLES Final R esult Performing Organization Address [facility] Co de Phone Number [facility] [address] [place] [address] * Phosphorus (09/21/2024 1:48 AM [employer]) Pathologist [facility] Phosphorus, pl 3.2 2.3 - 4.5 mg/dL Blood 09/21/2024 1:48 AM [employer] 09/21/2024 2:06 AM [employer] Flo Villagran MD LAB BLOOD ORDERABLES Final R esult Performing Organization Address [facility] Co de Phone Number [facility] [address] [facility] [employer] [place], [place] [id number] * Magnesium (09/21/2024 1:48 AM [employer]) [facility] Magnesium 2.0 1.4 - 2.5 mg/dL Blood 09/21/2024 1:48 AM [employer] 09/21/2024 2:06 AM [employer] Result [facility] Flo Villagran MD LAB BLOOD ORDERABLES Final [facility] Performing Organization Address [facility] Co de Phone Number [facility] [address] [facility] [employer] [place], [place] [id number] * Bilirubin, direct (09/21/2024 1:48 AM [employer]) [facility] Bilirubin, direct <0.2 0.1 - 0.3 mg/dL Blood 09/21/2024 1:48 AM [employer] 09/21/2024 2:06 AM [employer] Result [facility] Flo Villagran MD LAB BLOOD ORDERABLES Final R esult Performing Organization Address [facility] Co de Phone Number [facility] [address] [facility] [employer] [place], [place] [id number] * (ABNORMAL) Comprehensive metabolic panel (09/21/2024 1:48 AM [employer]) [facility] Sodium 144 135 - 145 mmol/L Potassium, pl 2.9(L) 3.3 - 4.9 mmol/L [facility] Chloride 112(H) 97 - 110 mmol/L [facility] CO2 19(L) 22 - 32 mmol/L [facility] Anion gap 13 2 - 15 mmol/L [facility] BUN 32(H) 6 - 25 mg/dL [facility] Creatinine 1.31(H) 0.60 - 1.10 mg/dL [facility] Glucose 259(H) 70 - 199 mg/dL [facility] Comment: Interpretive Data Fasting glucose >/= 126 [...] 2022. Calcium 7.4(L) 8.5 - 10.3 mg/dL [facility] Bilirubin, total 0.2 0.1 - 1.2 mg/dL [facility] Protein, pl 5.6(L) 6.5 - 8.5 g/dL [facility] Albumin 2.0(L) 3.5 - 5.0 g/dL [facility] Alk phos 135(H) 40 - 130 Units/L [facility] ALT 16 7 - 45 Units/L [facility] AST 23 10 - 45 Units/L [facility] Blood 09/21/2024 1:48 AM [employer] 09/21/2024 2:06 AM [employer] Flo Villagran MD LAB BLOOD ORDERABLES Final R esult [facility] [address] Department [place] [address] * Thyroid Function [place] (09/17/2024 4:10 AM [employer]) TSH 1.79 0.30 - 4.20 mcIUnit/mL Blood 09/17/2024 4:10 AM [employer] 09/17/2024 4:10 AM [employer] Elida Vigil DO LAB BLOOD ORDERABLES F inal Result Performing Organization Address City/[facility]/ZIP Co de Phone Number [facility] [address] [facility] [place] [address] * (ABNORMAL) Hemoglobin A1c (09/13/2024 1:46 AM [employer]) Hgb A1C 9.1(H) 4.0 - 5.6 % Estimated Average Glucose 214 mg/dL [facility] Comment: The ADA recommends reporting an estimated Average Glucose (eAG) with all Hemoglobin A1c results using the equation derived from a study of 507 normal and diabetic adults. Minority populations were underrepresented and children were not included. (Diabetes Care 31:1601-9250, 2008). The eAG is not equivalent to a fasting glucose. Blood 09/13/2024 1:46 AM [employer] 09/13/2024 1:53 AM [employer] Carl Abreu MD LAB BLOOD ORDERABLES Final R esult Performing Organization Address [facility]/ZIP Co de Phone Number [facility] [address] [facility] [place] [address] * COLONOSCOPY REPORT (06/07/2014) Anatomical Region Laterality Modality Other Narrative 06/07/2014 Ordered by an unspecified provider. Historical Provider GI PROCEDURE ORDERABLES F inal Result from Last 3 Months or Most Recently Relevant to Health Maintenance Insurance [facility] MEDICARE ADVANTAGE [facility] MED[facility] Address: [address] [address] [place] [address] [facility] HEALTH PLAN [place] [facility] MEDICARE ADVANTAGE [facility] MED[facility] Address: [address] [address] [place] [address] [employer]IL [facility] MEDICARE ADVANTAGE [facility] Address: [address] [address] [place] [address] MEDICARE Advance Directives For more information, please contact: [phone] Documents on File Type Date Recorded Patient Burn Crew Member Expl anation ADVANCE DIRECTIVE 11/10/2024 2:31 PM [...] MILLAN Daughter in Law Health Care Agent [phone] (Mobile ) Care Teams Network Operations Center Engineer Relationship Specialty Start Date End Date Donte Lucas PA [address] [place] [id number] PCP - General Physician Newspaper Editor Managing 08/26/24
--- OUTSIDE RECORDS SUMMARY | 2024-12-19 17:28 | XMS_ITS | Clinical Summary ---
Author Organization [facility] er Address [address] [place] [address] Care Team Providers Care Manufacturing Assistant Name Role Phone Donte Lucas Primary Care [...] hematuria 09/22/2021 Coronary artery disease invo lving [place] coronary artery of [place] heart without angina pectoris 09/22/2021 Chronic pain [...] Description 12/01/2024 9:00 AM CDT Office Visit [facility] Cardiology [address] [place] [address] [place] [phone] Maggie Schmitz NP Chronic systolic congestive heart failure (HCC) (Primary Dx); Coronary artery disease involving [place] coronary artery of [place] heart without angina pectoris; Lipid screening; Paroxysmal atrial fibrillation (HCC); Urinary retention; Hospital discharge follow-up 11/10/2024 3:00 PM CDT Home Care Visit [address] [address] [address] [place] [address] Danuta Peña, PADMA [facility] INFORMATIONAL VISIT 11/08/2024 Home Care Visit [address] [place] [address] Amanda Mcdonnell, PADMA SN TRIAGE ENCOUNTER 11/07/2024 Orders Only [facility] Cardiology [address] [place] [address] [address] [place] [address] John Freedman MD 10/28/2024 Orders Only [facility] Hospitalists [facility] [place] [address] Trevor Rollins MD 09/13/2024 1:12 AM PRESCHOOL TEACHER - 10/01/2024 5:21 PM PRESCHOOL TEACHER Hospital Encounter [address] [place] [address] Carl Abreu MD Striker, David A., MD [...] drink = 0.6 oz pur e alcohol) [facility] Utilities Answer Date Recorded In the past 12 months has [employer], gas, oil, or water [employer] threatened to shut off services in your [...] 09/13/2024 How often do you attend [facility] or [facility] services? Never 09/13/2024 Do you belong to any clubs o r organizations such as buddhist groups, unions, fraternal or athletic groups, or [...] any time in the past 12 m [facility], were you homeless or [...] on file Legal Sex Female 11:01 PM PRESCHOOL TEACHER Gender Identity Not on file Sexual Orientation Not on file Obstetrics History Last Filed Vital Signs Vital Sign Reading Time Taken Comments Blood Pressure 108/68 12/01/2024 8:58 AM CDT Pulse 90 12/01/2024 8:58 AM CDT Temperature 36.4 C (97.6 F) 10/01/2024 3:07 AM PRESCHOOL TEACHER Respiratory Rate 18 10/01/2024 3:07 AM PRESCHOOL TEACHER Oxygen Saturation 94% 12/01/2024 8:58 AM CDT [...] - PCV) 1993 Colon Cancer Screening-Colonoscopy 06/07/20242013 Zoster Vaccine (1 of 2) 2024 Hemoglobin A1C 03/13/2025 09/13/2024, 04/10, 09/22/2021, Additional history exists Influenza Vaccine (Season Ended) 2025 eGFR 10/01/2025 10/01/2024, 02/2 , 09/28/2024, Additional history exists TSH Level 10/15/2025 [...] GLUCOSE DEVICE Routine 10/01/2024 4 :34 PM PRESCHOOL TEACHER POCT GLUCOSE DEVICE Routine 10/01/2024 1 1:48 AM PRESCHOOL TEACHER XR CHEST 1 VIEW IP Routine 10/01/2024 9:10 AM PRESCHOOL TEACHER EGFR Routine 10/01/2024 6:57 AM PRESCHOOL TEACHER BASIC METABOLIC PANEL Routine 10/01/2024 6:57 AM PRESCHOOL TEACHER MAGNESIUM Routine 10/01/2024 6:57 AM PRESCHOOL TEACHER POCT GLUCOSE DEVICE Routine 10/01/2024 6 :04 AM PRESCHOOL TEACHER POCT GLUCOSE DEVICE Routine 10/01/2024 2 :00 AM PRESCHOOL TEACHER POCT GLUCOSE DEVICE Routine 09/30/2024 9 :45 PM PRESCHOOL TEACHER POCT GLUCOSE DEVICE Routine 09/30/2024 4 :52 PM PRESCHOOL TEACHER POCT GLUCOSE DEVICE Routine 09/30/2024 1 1:39 AM PRESCHOOL TEACHER POCT GLUCOSE DEVICE Routine 09/30/2024 8 :36 AM PRESCHOOL TEACHER POCT GLUCOSE DEVICE Routine 09/30/2024 5 :29 AM PRESCHOOL TEACHER POCT GLUCOSE DEVICE Routine 09/30/2024 2 :22 AM PRESCHOOL TEACHER POCT GLUCOSE DEVICE Routine 09/29/2024 8 :35 PM PRESCHOOL TEACHER POCT GLUCOSE DEVICE Routine 09/29/2024 5 :35 PM PRESCHOOL TEACHER EGFR Routine 09/29/2024 3:33 PM PRESCHOOL TEACHER DIFFERENTIAL AUTO Routine 09/29/2024 3:3 3 PM PRESCHOOL TEACHER COMPREHENSIVE METABOLIC PANEL Routine 09/29/2024 3:33 PM PRESCHOOL TEACHER CBC WITH AUTO DIFFERENTIAL Routine 09/29/2024 3:33 PM PRESCHOOL TEACHER POCT GLUCOSE DEVICE Routine 09/29/2024 1 :43 PM PRESCHOOL TEACHER POCT GLUCOSE DEVICE Routine 09/29/2024 9 :49 AM PRESCHOOL TEACHER POCT GLUCOSE DEVICE Routine 09/29/2024 7 :27 AM PRESCHOOL TEACHER POCT GLUCOSE DEVICE Routine 09/29/2024 5 :31 AM PRESCHOOL TEACHER POCT GLUCOSE DEVICE Routine 09/29/2024 1 :25 AM PRESCHOOL TEACHER POCT GLUCOSE DEVICE Routine 09/28/2024 9 :14 PM PRESCHOOL TEACHER POCT GLUCOSE DEVICE Routine 09/28/2024 5 :12 PM PRESCHOOL TEACHER POCT GLUCOSE DEVICE Routine 09/28/2024 1 :43 PM PRESCHOOL TEACHER POCT GLUCOSE DEVICE Routine 09/28/2024 9 :16 AM PRESCHOOL TEACHER EGFR Routine 09/28/2024 7:09 AM PRESCHOOL TEACHER DIFFERENTIAL AUTO Routine 09/28/2024 7:0 9 AM PRESCHOOL TEACHER COMPREHENSIVE METABOLIC PANEL Routine 09/28/2024 7:09 AM PRESCHOOL TEACHER CBC WITH AUTO DIFFERENTIAL Routine 09/28/2024 7:09 AM PRESCHOOL TEACHER POCT GLUCOSE DEVICE Routine 09/28/2024 5 :42 AM PRESCHOOL TEACHER POCT GLUCOSE DEVICE Routine 09/28/2024 1 :31 AM PRESCHOOL TEACHER POCT GLUCOSE DEVICE Routine 09/27/2024 9 :14 PM PRESCHOOL TEACHER POCT GLUCOSE DEVICE Routine 09/27/2024 5 :25 PM PRESCHOOL TEACHER POCT GLUCOSE DEVICE Routine 09/27/2024 3 :13 PM PRESCHOOL TEACHER FL MODIFIED BARIUM SWALLOW W VIDEO IP Routine 09/27/2024 2:20 PM PRESCHOOL TEACHER POCT GLUCOSE DEVICE Routine 09/27/2024 1 0:05 AM PRESCHOOL TEACHER ADD ON LAB TEST Add-On 09/27/2024 8:43 AM PRESCHOOL TEACHER POCT GLUCOSE DEVICE Routine 09/27/2024 5 :57 AM PRESCHOOL TEACHER IRON PROFILE W/ IBC Routine 09/27/2024 5 :42 AM PRESCHOOL TEACHER EGFR Routine 09/27/2024 5:42 AM PRESCHOOL TEACHER DIFFERENTIAL AUTO Routine 09/27/2024 5:4 2 AM PRESCHOOL TEACHER COMPREHENSIVE METABOLIC PANEL Routine 09/27/2024 5:42 AM PRESCHOOL TEACHER CBC WITH AUTO DIFFERENTIAL Routine 09/27/2024 5:42 AM PRESCHOOL TEACHER POCT GLUCOSE DEVICE Routine 09/27/2024 2 :14 AM PRESCHOOL TEACHER POCT GLUCOSE DEVICE Routine 09/26/2024 9 :41 PM PRESCHOOL TEACHER POCT GLUCOSE DEVICE Routine 09/26/2024 6 :18 PM PRESCHOOL TEACHER POCT GLUCOSE DEVICE Routine 09/26/2024 2 :51 PM PRESCHOOL TEACHER CBC WITH AUTO DIFFERENTIAL STAT 09/26/2024 2:03 PM PRESCHOOL TEACHER EGFR Routine 09/26/2024 1:25 PM PRESCHOOL TEACHER DIFFERENTIAL AUTO Routine 09/26/2024 1:2 5 PM PRESCHOOL TEACHER COMPREHENSIVE METABOLIC PANEL Routine 09/26/2024 1:25 PM PRESCHOOL TEACHER CBC WITH AUTO DIFFERENTIAL Routine 09/26/2024 1:25 PM PRESCHOOL TEACHER POCT GLUCOSE DEVICE Routine 09/26/2024 1 0:10 AM PRESCHOOL TEACHER POCT GLUCOSE DEVICE Routine 09/26/2024 5 :04 AM PRESCHOOL TEACHER C. DIFFICILE TESTING Routine 09/26/2024 2:18 AM PRESCHOOL TEACHER POCT GLUCOSE DEVICE Routine 09/26/2024 1 2:01 AM PRESCHOOL TEACHER POCT GLUCOSE DEVICE Routine 09/25/2024 8 :35 PM PRESCHOOL TEACHER POCT GLUCOSE DEVICE Routine 09/25/2024 4 :36 PM PRESCHOOL TEACHER POCT GLUCOSE DEVICE Routine 09/25/2024 1 1:55 AM PRESCHOOL TEACHER POCT GLUCOSE DEVICE Routine 09/25/2024 8 :32 AM PRESCHOOL TEACHER EGFR Routine 09/25/2024 8:32 AM PRESCHOOL TEACHER DIFFERENTIAL AUTO Routine 09/25/2024 8:3 2 AM PRESCHOOL TEACHER COMPREHENSIVE METABOLIC PANEL Routine 09/25/2024 8:32 AM PRESCHOOL TEACHER CBC WITH AUTO DIFFERENTIAL Routine 09/25/2024 8:32 AM PRESCHOOL TEACHER POCT GLUCOSE DEVICE Routine 09/25/2024 4 :49 AM PRESCHOOL TEACHER POCT GLUCOSE DEVICE Routine 09/25/2024 1 2:48 AM PRESCHOOL TEACHER POCT GLUCOSE DEVICE Routine 09/24/2024 8 :56 PM PRESCHOOL TEACHER POCT GLUCOSE DEVICE Routine 09/24/2024 4 :20 PM PRESCHOOL TEACHER POCT GLUCOSE DEVICE Routine 09/24/2024 1 2:13 PM PRESCHOOL TEACHER XR CHEST 1 VIEW IP Routine 09/24/2024 8:18 AM PRESCHOOL TEACHER POCT GLUCOSE DEVICE Routine 09/24/2024 4 :12 AM PRESCHOOL TEACHER POCT GLUCOSE DEVICE Routine 09/24/2024 2 :44 AM PRESCHOOL TEACHER POCT GLUCOSE DEVICE Routine 09/24/2024 1 :06 AM PRESCHOOL TEACHER POCT GLUCOSE DEVICE Routine 09/24/2024 1 2:44 AM PRESCHOOL TEACHER POCT GLUCOSE DEVICE Routine 09/24/2024 1 2:22 AM PRESCHOOL TEACHER POCT GLUCOSE DEVICE Routine 09/23/2024 9 :34 PM PRESCHOOL TEACHER POCT GLUCOSE DEVICE Routine 09/23/2024 4 :10 PM PRESCHOOL TEACHER POCT GLUCOSE DEVICE Routine 09/23/2024 1 :10 PM PRESCHOOL TEACHER POCT GLUCOSE DEVICE Routine 09/23/2024 1 2:18 PM PRESCHOOL TEACHER POCT GLUCOSE DEVICE Routine 09/23/2024 1 1:55 AM PRESCHOOL TEACHER POCT GLUCOSE DEVICE Routine 09/23/2024 1 1:54 AM PRESCHOOL TEACHER POCT GLUCOSE DEVICE Routine 09/23/2024 7 :47 AM PRESCHOOL TEACHER POCT GLUCOSE DEVICE Routine 09/23/2024 3 :27 AM PRESCHOOL TEACHER POCT GLUCOSE DEVICE Routine 09/23/2024 1 :13 AM PRESCHOOL TEACHER POCT GLUCOSE DEVICE Routine 09/23/2024 1 2:17 AM PRESCHOOL TEACHER POCT GLUCOSE DEVICE Routine 09/22/2024 1 1:54 PM PRESCHOOL TEACHER BLOOD GAS, ARTERIAL STAT 09/22/2024 8 :33 PM PRESCHOOL TEACHER POCT GLUCOSE DEVICE Routine 09/22/2024 7 :46 PM PRESCHOOL TEACHER POCT GLUCOSE DEVICE Routine 09/22/2024 4 :04 PM PRESCHOOL TEACHER EXTUBATION Routine 09/22/2024 3:48 PM PRESCHOOL TEACHER POCT GLUCOSE DEVICE Routine 09/22/2024 1 1:51 AM PRESCHOOL TEACHER POCT GLUCOSE DEVICE Routine 09/22/2024 8 :42 AM PRESCHOOL TEACHER POCT GLUCOSE DEVICE Routine 09/22/2024 4 :05 AM PRESCHOOL TEACHER XR CHEST 1 VIEW IP Routine 09/22/2024 3:59 AM PRESCHOOL TEACHER EGFR Routine 09/22/2024 2:24 AM PRESCHOOL TEACHER CBC WITHOUT DIFFERENTIAL Routine 09/22/2024 2:24 AM PRESCHOOL TEACHER MAGNESIUM Routine 09/22/2024 2:24 AM PRESCHOOL TEACHER RENAL FUNCTION PANEL Routine 09/22/2024 2:24 AM PRESCHOOL TEACHER POCT GLUCOSE DEVICE Routine 09/21/2024 1 1:58 PM PRESCHOOL TEACHER POCT GLUCOSE DEVICE Routine 09/21/2024 7 :01 PM PRESCHOOL TEACHER POCT GLUCOSE DEVICE Routine 09/21/2024 3 :10 PM PRESCHOOL TEACHER POTASSIUM LEVEL STAT 09/21/2024 2:07 PM PRESCHOOL TEACHER POCT GLUCOSE DEVICE Routine 09/21/2024 1 1:30 AM PRESCHOOL TEACHER POCT GLUCOSE DEVICE Routine 09/21/2024 7 :19 AM PRESCHOOL TEACHER XR CHEST 1 VIEW IP Routine 09/21/2024 4:44 AM PRESCHOOL TEACHER POCT GLUCOSE DEVICE Routine 09/21/2024 3 :47 AM PRESCHOOL TEACHER EGFR Routine 09/21/2024 1:48 AM PRESCHOOL TEACHER PHOSPHORUS Routine 09/21/2024 1:48 AM PRESCHOOL TEACHER BILIRUBIN, DIRECT Routine 09/21/2024 1:4 8 AM PRESCHOOL TEACHER COMPREHENSIVE METABOLIC PANEL Routine 09/21/2024 1:48 AM PRESCHOOL TEACHER CBC WITHOUT DIFFERENTIAL Routine 09/21/2024 1:48 AM PRESCHOOL TEACHER MAGNESIUM Routine 09/21/2024 1:48 AM PRESCHOOL TEACHER THYROID FUNCTION CASCADE Routine 09/17/2024 4:10 AM PRESCHOOL TEACHER HEMOGLOBIN A1C Routine 09/13/2024 1:46 AM PRESCHOOL TEACHER COLONOSCOPY REPORT 06/07/2014 from Last 3 Months [...] PM CDT) Anatomical Region Laterality Modality Other Result [facility] Nolberto Carter MD CV CARDIAC SERVICES PROCEDURES [...] Result * POCT glucose (10/01/2024 4:34 PM PRESCHOOL TEACHER) Glucose, POC 143 70 - 199 mg/dL Comment: For Glucose values <35 mg/dl when Hematocrit is >60 mg/dl,the test may not accurately detect significant hypoglycemia,and testing in the Laboratory should be considered if clinically indicated. Blood 10/01/2024 4:34 PM PRESCHOOL TEACHER 10/01/2024 4:34 PM PRESCHOOL TEACHER Result [facility] Chai Beck MD LAB POCT ORDERABLES - DEVICE Final Result Performing Organization Address [facility] [address] [facility] Co de Phone Number [facility] [address] [place] [address] * POCT glucose (10/01/2024 11:48 AM PRESCHOOL TEACHER) Glucose, POC 145 70 - 199 mg/dL Comment: For Glucose values <35 mg/dl when Hematocrit is >60 mg/dl,the test may not accurately detect significant hypoglycemia,and testing in the Laboratory should be considered if clinically indicated. Blood 10/01/2024 11:4 8 AM PRESCHOOL TEACHER 10/01/2024 11:48 AM PRESCHOOL TEACHER Result [facility] Chai Beck MD LAB POCT ORDERABLES - DEVICE Final Result Performing Organization Address [facility] [address]/[facility] Co de Phone Number [facility] [address] [place] [address] * XR Chest 1 View (10/01/2024 9:10 AM PRESCHOOL TEACHER) Anatomical Region Laterality Modality Body, Chest N/A Computed Radiogr aphy 10/01/2024 9:17 AM PRESCHOOL TEACHER Impressions 10/01/2024 9:17 AM PRESCHOOL TEACHER Comparison 09/24/2024 Improvement in the left lower lobe and lingular consolidation. There is now a small left pleural effusion. Right lung is clear. There is no pneumothorax. The cardiomediastinal silhouette is unchanged.. Electronically signed by: Phillip Mathis MD Narrative 10/01/2024 9:17 AM PRESCHOOL TEACHER Chest one view HISTORY: Recent pneumonia treated [...] t * (ABNORMAL) eGFR (10/01/2024 6:57 AM PRESCHOOL TEACHER) eGFR 54(L) >=60 mL/min/1. 73 m2 Comment: [...] last reviewed 2021. Blood 10/01/2024 6:57 AM PRESCHOOL TEACHER 10/01/2024 7:30 AM PRESCHOOL TEACHER Timothy Augustin MD LAB BLOOD ORDERABLES Final Re sult Performing Organization Address City/[facility] [address]/ZIP Co de Phone Number [facility] [address] [place] [address] * Magnesium (10/01/2024 6:57 AM PRESCHOOL TEACHER) [facility] Magnesium 1.5 1.4 - 2.5 mg/dL Blood 10/01/2024 6:57 AM PRESCHOOL TEACHER 10/01/2024 7:30 AM PRESCHOOL TEACHER Arnulfo Jordan MD LAB BLOOD ORDERABLES Final Result Performing Organization Address [facility] [address]/[facility] Co de Phone Number [facility] [address] [place] [address] * (ABNORMAL) Basic metabolic panel (10/01/2024 6:57 AM PRESCHOOL TEACHER) [facility] Sodium 140 135 - 145 mmol/L Potassium, pl 2.9(L) 3.3 - 4.9 mmol/L [facility] Chloride 108 97 - 110 mmol/L [facility] CO2 22 22 - 32 mmol/L [facility] Anion gap 10 2 - 15 mmol/L [facility] BUN 22 6 - 25 mg/dL [facility] Creatinine 1.23(H) 0.60 - 1.10 mg/dL [facility] Glucose 162 70 - 199 mg/dL [facility] Comment: Interpretive Data Fasting glucose >/= 126 [...] 2022. Calcium 8.0(L) 8.5 - 10.3 mg/dL [facility] Blood 10/01/2024 6:57 AM PRESCHOOL TEACHER 10/01/2024 7:30 AM PRESCHOOL TEACHER Timothy Augustin MD LAB BLOOD ORDERABLES Final Re sult Performing Organization Address [facility] [address]/[facility] Co de Phone Number [facility] [address] [facility] [place] [address] * POCT glucose (10/01/2024 6:04 AM PRESCHOOL TEACHER) Glucose, POC 179 70 - 199 mg/dL Comment: For Glucose values <35 mg/dl when Hematocrit is >60 mg/dl,the test may not accurately detect significant hypoglycemia,and testing in the Laboratory should be considered if clinically indicated. Blood 10/01/2024 6:04 AM PRESCHOOL TEACHER 10/01/2024 6:04 AM PRESCHOOL TEACHER Result [facility] Arnulfo Jordan MD LAB POCT ORDERABLES - DEVIC E Final Result Performing Organization Address [facility] Co de Phone Number [facility] [address] [facility] [place], [place] [id number] * POCT glucose (10/01/2024 2:00 AM PRESCHOOL TEACHER) Glucose, POC 168 70 - 199 mg/dL Comment: For Glucose values <35 mg/dl when Hematocrit is >60 mg/dl,the test may not accurately detect significant hypoglycemia,and testing in the Laboratory should be considered if clinically indicated. Blood 10/01/2024 2:00 AM PRESCHOOL TEACHER 10/01/2024 2:00 AM PRESCHOOL TEACHER Arnulfo Jordan MD LAB POCT ORDERABLES - DEVIC E Final Result Performing Organization Address [facility] [address]/[facility] Co de Phone Number [facility] [address] [facility] [place] [address] * POCT glucose (09/30/2024 9:45 PM PRESCHOOL TEACHER) Glucose, POC 173 70 - 199 mg/dL Comment: For Glucose values <35 mg/dl when Hematocrit is >60 mg/dl,the test may not accurately detect significant hypoglycemia,and testing in the Laboratory should be considered if clinically indicated. Blood 09/30/2024 9:45 PM PRESCHOOL TEACHER 09/30/2024 9:45 PM PRESCHOOL TEACHER Arnulfo Jordan MD LAB POCT ORDERABLES - DEVIC E Final Result Performing Organization Address [facility] [address]/[email or web address]] de Phone Number [facility] [address] [facility] [place] [address] * (ABNORMAL) POCT glucose (09/30/2024 4:52 PM PRESCHOOL TEACHER) Glucose, POC 213(H) 70 - 199 mg/dL Comment: For Glucose values <35 mg/dl when Hematocrit is >60 mg/dl,the test may not accurately detect significant hypoglycemia,and testing in the Laboratory should be considered if clinically indicated. Blood 09/30/2024 4:52 PM PRESCHOOL TEACHER 09/30/2024 4:52 PM PRESCHOOL TEACHER Result [facility] us Arnulfo Jordan MD LAB POCT ORDERABLES - DEVIC E Final Result Performing Organization Address [facility] [address]/[facility] Co de Phone Number [facility] [address] [facility] [place] [address] * POCT glucose (09/30/2024 11:39 AM PRESCHOOL TEACHER) Glucose, POC 139 70 - 199 mg/dL Comment: For Glucose values <35 mg/dl when Hematocrit is >60 mg/dl,the test may not accurately detect significant hypoglycemia,and testing in the Laboratory should be considered if clinically indicated. Blood 09/30/2024 11:3 9 AM PRESCHOOL TEACHER 09/30/2024 11:39 AM PRESCHOOL TEACHER Result [facility] us Arnulfo Jordan MD LAB POCT ORDERABLES - DEVIC E Final Result Performing Organization Address [facility] [address]/[facility] Co de Phone Number [facility] [address] [facility] [place] [address] * POCT glucose (09/30/2024 8:36 AM PRESCHOOL TEACHER) Glucose, POC 116 70 - 199 mg/dL Comment: For Glucose values <35 mg/dl when Hematocrit is >60 mg/dl,the test may not accurately detect significant hypoglycemia,and testing in the Laboratory should be considered if clinically indicated. Blood 09/30/2024 8:36 AM PRESCHOOL TEACHER 09/30/2024 8:36 AM PRESCHOOL TEACHER Arnulfo Jordan MD LAB POCT ORDERABLES - DEVIC E Final Result Performing Organization Address [facility] [address]/[facility] Co de Phone Number [facility] [address] [facility] [place] [address] * POCT glucose (09/30/2024 5:29 AM PRESCHOOL TEACHER) Glucose, POC 110 70 - 199 mg/dL Comment: For Glucose values <35 mg/dl when Hematocrit is >60 mg/dl,the test may not accurately detect significant hypoglycemia,and testing in the Laboratory should be considered if clinically indicated. Blood 09/30/2024 5:29 AM PRESCHOOL TEACHER 09/30/2024 5:29 AM PRESCHOOL TEACHER Arnulfo Jordan MD LAB POCT ORDERABLES - DEVIC E Final Result Performing Organization Address [facility] [address]/[facility] Co de Phone Number [facility] [address] [place] [address] * POCT glucose (09/30/2024 2:22 AM PRESCHOOL TEACHER) Glucose, POC 183 70 - 199 mg/dL Comment: For Glucose values <35 mg/dl when Hematocrit is >60 mg/dl,the test may not accurately detect significant hypoglycemia,and testing in the Laboratory should be considered if clinically indicated. Blood 09/30/2024 2:22 AM PRESCHOOL TEACHER 09/30/2024 2:22 AM PRESCHOOL TEACHER Arnulfo Jordan MD LAB POCT ORDERABLES - DEVIC E Final Result Performing Organization Address [facility] [address]/[facility] Co de Phone Number [facility] [address] [place] [address] * POCT glucose (09/29/2024 8:35 PM PRESCHOOL TEACHER) Glucose, POC 192 70 - 199 mg/dL Comment: For Glucose values <35 mg/dl when Hematocrit is >60 mg/dl,the test may not accurately detect significant hypoglycemia,and testing in the Laboratory should be considered if clinically indicated. Blood 09/29/2024 8:35 PM PRESCHOOL TEACHER 09/29/2024 8:35 PM PRESCHOOL TEACHER Result [facility] Arnulfo Jordan MD LAB POCT ORDERABLES - DEVIC E Final Result Performing Organization Address [facility] [[email or web address]] de Phone Number [facility] [address] [place] [address] * (ABNORMAL) POCT glucose (09/29/2024 5:35 PM PRESCHOOL TEACHER) Glucose, POC 203(H) 70 - 199 mg/dL Comment: For Glucose values <35 mg/dl when Hematocrit is >60 mg/dl,the test may not accurately detect significant hypoglycemia,and testing in the Laboratory should be considered if clinically indicated. Blood 09/29/2024 5:35 PM PRESCHOOL TEACHER 09/29/2024 5:35 PM PRESCHOOL TEACHER Result [facility] Arnulfo Jordan MD LAB POCT ORDERABLES - DEVIC E Final Result Performing Organization Address [facility] [address]/[facility] Co de Phone Number [facility] [address] [place] [address] * (ABNORMAL) eGFR (09/29/2024 3:33 PM PRESCHOOL TEACHER) [facility] eGFR 58(L) >=60 mL/min/1. 73 m2 [...] last reviewed 2021. Blood 09/29/2024 3:33 PM PRESCHOOL TEACHER 09/29/2024 3:45 PM PRESCHOOL TEACHER us Arnulfo Jordan MD LAB BLOOD ORDERABLES Final Result [facility] [address] Department [place] [address] * (ABNORMAL) Differential, auto (09/29/2024 3:33 PM PRESCHOOL TEACHER) [facility] Neutrophil abs 6.6(H) 1.5 - 6.5 K/cumm Imm gran abs 0.1 0.0 - 0.1 K/cumm [facility] Lymphocyte abs 0.9 0.8 - 3.3 K/cumm [facility] Monocyte abs 0.6 0.2 - 0.8 K/cumm [facility] Eosinophil abs 0.1 0.0 - 0.5 K/cumm [facility] Basophil abs 0.1 0.0 - 0.1 K/cumm [facility] Neutrophil pct 79.1 % [facility] Comment: Interpretive Data Percent cell count reference ranges are not reported, since discordance with absolute values may lead to misinterpretation of CBC data. Current Interpretive Data was last revised on 2017. Imm gran pct 0.6 % [facility] Comment: Interpretive Data Percent cell count reference ranges are not reported, since discordance with absolute values may lead to misinterpretation of CBC data. Current Interpretive Data was last revised on 2017. Lymphocyte pct 11.1 % [facility] Comment: Interpretive Data Percent cell count reference ranges are not reported, since discordance with absolute values may lead to misinterpretation of CBC data. Current Interpretive Data was last revised on 2017. Monocyte pct 7.6 % [facility] Comment: Interpretive Data Percent cell count reference ranges are not reported, since discordance with absolute values may lead to misinterpretation of CBC data. Current Interpretive Data was last revised on 2017. Eosinophil pct 0.6 % [facility] Comment: Interpretive Data Percent cell count reference ranges are not reported, since discordance with absolute values may lead to misinterpretation of CBC data. Current Interpretive Data was last revised on 2017. Basophil pct 1.0 % [facility] Comment: Interpretive Data Percent cell count reference ranges are not reported, since discordance with absolute values may lead to misinterpretation of CBC data. Current Interpretive Data was last revised on 2017. Blood 09/29/2024 3:33 PM PRESCHOOL TEACHER 09/29/2024 3:45 PM PRESCHOOL TEACHER Arnulfo Jordan MD LAB BLOOD ORDERABLES Final Result [facility] [address] Department of Laboratories [place], [place] [id number] * (ABNORMAL) CBC with auto differential (09/29/2024 3:33 PM PRESCHOOL TEACHER) WBC 8.3 3.8 - 9.9 K/cumm Hgb 7.8(L) 11.9 - 15.5 g/dL [facility] Hct 24.8(L) 35.6 - 45.5 % [facility] Plt 291 150 - 400 K/cumm [facility] MPV 10.9 9.1 - 12.3 fL [facility] RBC 2.59(L) 3.90 - 5.20 M/cumm [facility] MCV 95.8 81.3 - 96.4 fL [facility] MCH 30.1 27.1 - 33.3 pg [facility] MCHC 31.5(L) 32.3 - 35.7 g/dL [facility] RDW CV 16.6(H) 11.1 - 14.9 % [facility] RDW SD 56.7(H) 35.7 - 48.1 fL [facility] NRBC abs 0.02(H) 0.00 - 0.01 K/cumm [facility] Blood 09/29/2024 3:33 PM PRESCHOOL TEACHER 09/29/2024 3:45 PM PRESCHOOL TEACHER Arnulfo Jordan MD LAB BLOOD ORDERABLES Final Result [facility] [address] Department [place] [address] * (ABNORMAL) Comprehensive metabolic panel (09/29/2024 3:33 PM PRESCHOOL TEACHER) Sodium 141 135 - 145 mmol/L Potassium, pl 2.9(L) 3.3 - 4.9 mmol/L [facility] Chloride 110 97 - 110 mmol/L [facility] CO2 20(L) 22 - 32 mmol/L [facility] Anion gap 11 2 - 15 mmol/L [facility] BUN 19 6 - 25 mg/dL [facility] Creatinine 1.15(H) 0.60 - 1.10 mg/dL [facility] Glucose 207(H) 70 - 199 mg/dL [facility] Comment: Interpretive Data Fasting glucose >/= 126 [...] 2022. Calcium 7.7(L) 8.5 - 10.3 mg/dL [facility] Bilirubin, total 0.2 0.1 - 1.2 mg/dL [facility] Protein, pl 6.4(L) 6.5 - 8.5 g/dL [facility] Albumin 1.9(L) 3.5 - 5.0 g/dL [facility] Alk phos 170(H) 40 - 130 Units/L [facility] ALT 12 7 - 45 Units/L [facility] AST 27 10 - 45 Units/L [facility] Comment:Slightly Hemolyzed S pecimen Blood 09/29/2024 3:33 PM PRESCHOOL TEACHER 09/29/2024 3:45 PM PRESCHOOL TEACHER Arnulfo Jordan MD LAB BLOOD ORDERABLES Final Result Performing Organization Address [facility] [address]/ZIP Co de Phone Number [facility] [address] [place], [place] [id number] * POCT glucose (09/29/2024 1:43 PM PRESCHOOL TEACHER) Glucose, POC 164 70 - 199 mg/dL Comment: For Glucose values <35 mg/dl when Hematocrit is >60 mg/dl,the test may not accurately detect significant hypoglycemia,and testing in the Laboratory should be considered if clinically indicated. Blood 09/29/2024 1:43 PM PRESCHOOL TEACHER 09/29/2024 1:43 PM PRESCHOOL TEACHER Arnulfo Jordan MD LAB POCT ORDERABLES - DEVIC E Final Result Performing Organization Address [facility] [address]/ZIP Co de Phone Number [facility] [address] [place] [address] * POCT glucose (09/29/2024 9:49 AM PRESCHOOL TEACHER) Glucose, POC 133 70 - 199 mg/dL Comment: For Glucose values <35 mg/dl when Hematocrit is >60 mg/dl,the test may not accurately detect significant hypoglycemia,and testing in the Laboratory should be considered if clinically indicated. Blood 09/29/2024 9:49 AM PRESCHOOL TEACHER 09/29/2024 9:49 AM PRESCHOOL TEACHER Arnulfo Jordan MD LAB POCT ORDERABLES - DEVIC E Final Result Performing Organization Address [facility] [address]/[facility] [[email or web address]] de Phone Number [facility] [address] [place] [address] * POCT glucose (09/29/2024 7:27 AM PRESCHOOL TEACHER) Glucose, POC 114 70 - 199 mg/dL Comment: For Glucose values <35 mg/dl when Hematocrit is >60 mg/dl,the test may not accurately detect significant hypoglycemia,and testing in the Laboratory should be considered if clinically indicated. Blood 09/29/2024 7:27 AM PRESCHOOL TEACHER 09/29/2024 7:27 AM PRESCHOOL TEACHER Result [facility] Arnulfo Jordan MD LAB POCT ORDERABLES - DEVIC E Final Result Performing Organization Address [facility] de Phone Number [facility] [address] [place] [address] * POCT glucose (09/29/2024 5:31 AM PRESCHOOL TEACHER) Glucose, POC 115 70 - 199 mg/dL Comment: For Glucose values <35 mg/dl when Hematocrit is >60 mg/dl,the test may not accurately detect significant hypoglycemia,and testing in the Laboratory should be considered if clinically indicated. Blood 09/29/2024 5:31 AM PRESCHOOL TEACHER 09/29/2024 5:31 AM PRESCHOOL TEACHER Arnulfo Jordan MD LAB POCT ORDERABLES - DEVIC E Final Result Performing Organization Address [facility] [address]/ZIP Co de Phone Number [facility] [address] Department [place] [address] * POCT glucose (09/29/2024 1:25 AM PRESCHOOL TEACHER) Glucose, POC 108 70 - 199 mg/dL Comment: For Glucose values <35 mg/dl when Hematocrit is >60 mg/dl,the test may not accurately detect significant hypoglycemia,and testing in the Laboratory should be considered if clinically indicated. Blood 09/29/2024 1:25 AM PRESCHOOL TEACHER 09/29/2024 1:25 AM PRESCHOOL TEACHER Arnulfo Jordan MD LAB POCT ORDERABLES - DEVIC E Final Result Performing Organization Address [facility] [address]/[facility] [[email or web address] de Phone Number [facility] [address] [facility] [place] [address] * POCT glucose (09/28/2024 9:14 PM PRESCHOOL TEACHER) Glucose, POC 106 70 - 199 mg/dL Comment: For Glucose values <35 mg/dl when Hematocrit is >60 mg/dl,the test may not accurately detect significant hypoglycemia,and testing in the Laboratory should be considered if clinically indicated. Blood 09/28/2024 9:14 PM PRESCHOOL TEACHER 09/28/2024 9:14 PM PRESCHOOL TEACHER Arnulfo Jordan MD LAB POCT ORDERABLES - DEVIC E Final Result Performing Organization Address [facility] [address]/[facility] Co de Phone Number [facility] [address] Department [place] [address] * POCT glucose (09/28/2024 5:12 PM PRESCHOOL TEACHER) Glucose, POC 161 70 - 199 mg/dL Comment: For Glucose values <35 mg/dl when Hematocrit is >60 mg/dl,the test may not accurately detect significant hypoglycemia,and testing in the Laboratory should be considered if clinically indicated. Blood 09/28/2024 5:12 PM PRESCHOOL TEACHER 09/28/2024 5:12 PM PRESCHOOL TEACHER Arnulfo Jordan MD LAB POCT ORDERABLES - DEVIC E Final Result Performing Organization Address [facility] [address]/[facility] [[email or web address] de Phone Number [facility] [address] [facility] [place] [address] * POCT glucose (09/28/2024 1:43 PM PRESCHOOL TEACHER) Glucose, POC 173 70 - 199 mg/dL Comment: For Glucose values <35 mg/dl when Hematocrit is >60 mg/dl,the test may not accurately detect significant hypoglycemia,and testing in the Laboratory should be considered if clinically indicated. Blood 09/28/2024 1:43 PM PRESCHOOL TEACHER 09/28/2024 1:43 PM PRESCHOOL TEACHER Arnulfo Jordan MD LAB POCT ORDERABLES - DEVIC E Final Result Performing Organization Address [facility] de Phone Number [place] [id number] [facility] [place] [address] * POCT glucose (09/28/2024 9:16 AM PRESCHOOL TEACHER) Glucose, POC 124 70 - 199 mg/dL Comment: For Glucose values <35 mg/dl when Hematocrit is >60 mg/dl,the test may not accurately detect significant hypoglycemia,and testing in the Laboratory should be considered if clinically indicated. Blood 09/28/2024 9:16 AM PRESCHOOL TEACHER 09/28/2024 9:16 AM PRESCHOOL TEACHER Arnulfo Jordan MD LAB POCT ORDERABLES - DEVIC E Final Result Performing Organization Address [facility] [address] [facility] [[email or web address] de Phone Number [facility] [address] [facility] [place], [place] [phone] * (ABNORMAL) eGFR (09/28/2024 7:09 AM PRESCHOOL TEACHER) Pathologist [facility] eGFR 58(L) >=60 mL/min/1. [...] last reviewed 2021. Blood 09/28/2024 7:09 AM PRESCHOOL TEACHER 09/28/2024 7:45 AM PRESCHOOL TEACHER us Arnulfo Jordan MD LAB BLOOD ORDERABLES Final Result [facility] [address] Department [place] [address] * (ABNORMAL) Differential, auto (09/28/2024 7:09 AM PRESCHOOL TEACHER) Neutrophil abs 5.7 1.5 - 6.5 K/cumm Imm gran abs 0.0 0.0 - 0.1 K/cumm [facility] Lymphocyte abs 0.7(L) 0.8 - 3.3 K/cumm [facility] Monocyte abs 0.5 0.2 - 0.8 K/cumm [facility] Eosinophil abs 0.1 0.0 - 0.5 K/cumm [facility] Basophil abs 0.1 0.0 - 0.1 K/cumm [facility] Neutrophil pct 80.9 % [facility] Comment: Interpretive Data Percent cell count reference ranges are not reported, since discordance with absolute values may lead to misinterpretation of CBC data. Current Interpretive Data was last revised on 2017. Imm gran pct 0.4 % [facility] Comment: Interpretive Data Percent cell count reference ranges are not reported, since discordance with absolute values may lead to misinterpretation of CBC data. Current Interpretive Data was last revised on 2017. Lymphocyte pct 9.3 % [facility] Comment: Interpretive Data Percent cell count reference ranges are not reported, since discordance with absolute values may lead to misinterpretation of CBC data. Current Interpretive Data was last revised on 2017. Monocyte pct 6.9 % [facility] Comment: Interpretive Data Percent cell count reference ranges are not reported, since discordance with absolute values may lead to misinterpretation of CBC data. Current Interpretive Data was last revised on 2017. Eosinophil pct 1.5 % [facility] Comment: Interpretive Data Percent cell count reference ranges are not reported, since discordance with absolute values may lead to misinterpretation of CBC data. Current Interpretive Data was last revised on 2017. Basophil pct 1.0 % [facility] Comment: Interpretive Data Percent cell count reference ranges are not reported, since discordance with absolute values may lead to misinterpretation of CBC data. Current Interpretive Data was last revised on 2017. Blood 09/28/2024 7:09 AM PRESCHOOL TEACHER 09/28/2024 7:45 AM PRESCHOOL TEACHER us Arnulfo Jordan MD LAB BLOOD ORDERABLES Final Result [facility] [address] Department [place] [address] * (ABNORMAL) CBC with auto differential (09/28/2024 7:09 AM PRESCHOOL TEACHER) WBC 7.1 3.8 - 9.9 K/cumm Hgb 7.3(L) 11.9 - 15.5 g/dL [facility] Hct 24.5(L) 35.6 - 45.5 % [facility] Plt 285 150 - 400 K/cumm [facility] MPV 11.3 9.1 - 12.3 fL [facility] RBC 2.54(L) 3.90 - 5.20 M/cumm [facility] MCV 96.5(H) 81.3 - 96.4 fL [facility] MCH 28.7 27.1 - 33.3 pg [facility] MCHC 29.8(L) 32.3 - 35.7 g/dL [facility] RDW CV 16.5(H) 11.1 - 14.9 % [facility] RDW SD 57.2(H) 35.7 - 48.1 fL [facility] NRBC abs 0.00 0.00 - 0.01 K/cumm [facility] Blood 09/28/2024 7:09 AM PRESCHOOL TEACHER 09/28/2024 7:45 AM PRESCHOOL TEACHER Anrulfo Jordan MD LAB BLOOD ORDERABLES Final Result [facility] [address] Department [place] [address] * (ABNORMAL) Comprehensive metabolic panel (09/28/2024 7:09 AM PRESCHOOL TEACHER) Sodium 142 135 - 145 mmol/L Potassium, pl 3.3 3.3 - 4.9 mmol/L [facility] Chloride 109 97 - 110 mmol/L [facility] CO2 21(L) 22 - 32 mmol/L [facility] Anion gap 12 2 - 15 mmol/L [facility] BUN 24 6 - 25 mg/dL [facility] Creatinine 1.15(H) 0.60 - 1.10 mg/dL [facility] Glucose 111 70 - 199 mg/dL [facility] Comment: Interpretive Data Fasting glucose >/= 126 [...] 2022. Calcium 8.1(L) 8.5 - 10.3 mg/dL [facility] Bilirubin, total 0.2 0.1 - 1.2 mg/dL [facility] Protein, pl 6.3(L) 6.5 - 8.5 g/dL [facility] Albumin 1.9(L) 3.5 - 5.0 g/dL [facility] Alk phos 163(H) 40 - 130 Units/L [facility] ALT 10 7 - 45 Units/L [facility] AST 28 10 - 45 Units/L [facility] Blood 09/28/2024 7:09 AM PRESCHOOL TEACHER 09/28/2024 7:45 AM PRESCHOOL TEACHER Arnulfo Jordan MD LAB BLOOD ORDERABLES Final Result Performing Organization Address [facility] [address] [facility] Co de Phone Number [facility] [address] [facility] [place], [place] [phone] * POCT glucose (09/28/2024 5:42 AM PRESCHOOL TEACHER) Glucose, POC 123 70 - 199 mg/dL Comment: For Glucose values <35 mg/dl when Hematocrit is >60 mg/dl,the test may not accurately detect significant hypoglycemia,and testing in the Laboratory should be considered if clinically indicated. Blood 09/28/2024 5:42 AM PRESCHOOL TEACHER 09/28/2024 5:42 AM PRESCHOOL TEACHER Arnulfo Joradn MD LAB POCT ORDERABLES - DEVIC E Final Result Performing Organization Address [facility] [address] [facility] Co de Phone Number [facility] [address] [facility] [place], [place] [id number] * POCT glucose (09/28/2024 1:31 AM PRESCHOOL TEACHER) Glucose, POC 125 70 - 199 mg/dL Comment: For Glucose values <35 mg/dl when Hematocrit is >60 mg/dl,the test may not accurately detect significant hypoglycemia,and testing in the Laboratory should be considered if clinically indicated. Blood 09/28/2024 1:31 AM PRESCHOOL TEACHER 09/28/2024 1:31 AM PRESCHOOL TEACHER Arnulfo Jordan MD LAB POCT ORDERABLES - DEVIC E Final Result Performing Organization Address [facility] [address] [facility] Co de Phone Number [facility] [address] [facility] [place] [address] * POCT glucose (09/27/2024 9:14 PM PRESCHOOL TEACHER) Glucose, POC 136 70 - 199 mg/dL Comment: For Glucose values <35 mg/dl when Hematocrit is >60 mg/dl,the test may not accurately detect significant hypoglycemia,and testing in the Laboratory should be considered if clinically indicated. Blood 09/27/2024 9:14 PM PRESCHOOL TEACHER 09/27/2024 9:14 PM PRESCHOOL TEACHER Result [facility] Arnulfo Jordan MD LAB POCT ORDERABLES - DEVIC E Final Result Performing Organization Address [facility] de Phone Number [facility] [address] [place] [address] * POCT glucose (09/27/2024 5:25 PM PRESCHOOL TEACHER) Glucose, POC 112 70 - 199 mg/dL Comment: For Glucose values <35 mg/dl when Hematocrit is >60 mg/dl,the test may not accurately detect significant hypoglycemia,and testing in the Laboratory should be considered if clinically indicated. Blood 09/27/2024 5:25 PM PRESCHOOL TEACHER 09/27/2024 5:25 PM PRESCHOOL TEACHER Result [facility] Arnulfo Jordan MD LAB POCT ORDERABLES - DEVIC E Final Result Performing Organization Address [facility] [address] [facility] Co de Phone Number [facility] [address] [facility] [place] [address] * POCT glucose (09/27/2024 3:13 PM PRESCHOOL TEACHER) Glucose, POC 101 70 - 199 mg/dL Comment: For Glucose values <35 mg/dl when Hematocrit is >60 mg/dl,the test may not accurately detect significant hypoglycemia,and testing in the Laboratory should be considered if clinically indicated. Blood 09/27/2024 3:13 PM PRESCHOOL TEACHER 09/27/2024 3:13 PM PRESCHOOL TEACHER us Arnulfo Jordan MD LAB POCT ORDERABLES - DEVIC E Final Result [facility] [address] Department [place] [address] * FL Modified Barium Swallow W Video (09/27/2024 2:20 PM PRESCHOOL TEACHER) Anatomical Region Laterality Modality Head and Neck N/A Radio Fluoroscop y 09/27/2024 2:33 PM PRESCHOOL TEACHER Impressions 09/27/2024 3:03 PM PRESCHOOL TEACHER 1. There is flash laryngeal penetration with [...] Zion Rodriguez M.D. Narrative 09/27/2024 3:03 PM PRESCHOOL TEACHER EXAMINATION: MODIFIED BARIUM SWALLOW 09/27/2024 HISTORY: Dysphagia. [...] by: Zion Rodriguez M.D. Arnulfo Jordan MD IMG FLUOROSCOPY PROCEDURES Final Result * POCT glucose (09/27/2024 10:05 AM PRESCHOOL TEACHER) Glucose, POC 89 70 - 199 mg/dL Comment: For Glucose values <35 mg/dl when Hematocrit is >60 mg/dl,the test may not accurately detect significant hypoglycemia,and testing in the Laboratory should be considered if clinically indicated. Blood 09/27/2024 10:0 5 AM PRESCHOOL TEACHER 09/27/2024 10:05 AM PRESCHOOL TEACHER Arnulfo Jordan MD LAB POCT ORDERABLES - DEVIC E Final Result [facility] [address] [place] [address] * Iron profile - Add on lab test (09/27/2024 8:43 AM PRESCHOOL TEACHER) [facility] Acceptable Yes Blood 09/27/2024 8:43 AM PRESCHOOL TEACHER 09/27/2024 8:43 AM PRESCHOOL TEACHER Narrative [facility] - 09/27/2024 8:44 AM PRESCHOOL TEACHER Name of Test->Iron profile Arnulfo Jordan MD LAB BLOOD ORDERABLES Final Result [facility] [address] [facility] [place] [address] * POCT glucose (09/27/2024 5:57 AM PRESCHOOL TEACHER) [facility] Glucose, POC 74 70 - 199 mg/dL Comment: For Glucose values <35 mg/dl when Hematocrit is >60 mg/dl,the test may not accurately detect significant hypoglycemia,and testing in the Laboratory should be considered if clinically indicated. Blood 09/27/2024 5:57 AM PRESCHOOL TEACHER 09/27/2024 5:57 AM PRESCHOOL TEACHER Arnulfo Jordan MD LAB POCT ORDERABLES - DEVIC E Final Result [facility] [address] Department [place] [address] * (ABNORMAL) eGFR (09/27/2024 5:42 AM PRESCHOOL TEACHER) [facility] eGFR 58(L) >=60 mL/min/1. 73 m2 [...] last reviewed 2021. Blood 09/27/2024 5:42 AM PRESCHOOL TEACHER 09/27/2024 5:55 AM PRESCHOOL TEACHER us Arnulfo Jordan MD LAB BLOOD ORDERABLES Final Result [facility] [address] Department [place] [address] * (ABNORMAL) Differential, auto (09/27/2024 5:42 AM PRESCHOOL TEACHER) Neutrophil abs 7.1(H) 1.5 - 6.5 K/cumm Imm gran abs 0.0 0.0 - 0.1 K/cumm [facility] Lymphocyte abs 0.7(L) 0.8 - 3.3 K/cumm [facility] Monocyte abs 0.6 0.2 - 0.8 K/cumm [facility] Eosinophil abs 0.2 0.0 - 0.5 K/cumm [facility] Basophil abs 0.1 0.0 - 0.1 K/cumm [facility] Neutrophil pct 80.9 % [facility] Comment: Interpretive Data Percent cell count reference ranges are not reported, since discordance with absolute values may lead to misinterpretation of CBC data. Current Interpretive Data was last revised on 2017. Imm gran pct 0.5 % [facility] Comment: Interpretive Data Percent cell count reference ranges are not reported, since discordance with absolute values may lead to misinterpretation of CBC data. Current Interpretive Data was last revised on 2017. Lymphocyte pct 8.4 % [facility] Comment: Interpretive Data Percent cell count reference ranges are not reported, since discordance with absolute values may lead to misinterpretation of CBC data. Current Interpretive Data was last revised on 2017. Monocyte pct 6.6 % [facility] Comment: Interpretive Data Percent cell count reference ranges are not reported, since discordance with absolute values may lead to misinterpretation of CBC data. Current Interpretive Data was last revised on 2017. Eosinophil pct 2.6 % [facility] Comment: Interpretive Data Percent cell count reference ranges are not reported, since discordance with absolute values may lead to misinterpretation of CBC data. Current Interpretive Data was last revised on 2017. Basophil pct 1.0 % [facility] Comment: Interpretive Data Percent cell count reference ranges are not reported, since discordance with absolute values may lead to misinterpretation of CBC data. Current Interpretive Data was last revised on 2017. Blood 09/27/2024 5:42 AM PRESCHOOL TEACHER 09/27/2024 5:55 AM PRESCHOOL TEACHER Arnulfo Jordan MD LAB BLOOD ORDERABLES Final Result [facility] [address] Department [place] [place], [place] [id number] * (ABNORMAL) Iron profile w/ IBC (09/27/2024 5:42 AM PRESCHOOL TEACHER) [facility] Iron 25(L) 35 - 145 mcg/dL TIBC 156(L) 250 - 400 mcg/dL [facility] Transferrin saturation 16(L) 20 - 50 % [facility] Blood 09/27/2024 5:42 AM PRESCHOOL TEACHER 09/27/2024 5:55 AM PRESCHOOL TEACHER us Arnulof Jordan MD LAB BLOOD ORDERABLES Final Result [facility] [address] Department [place] [address] * (ABNORMAL) CBC with auto differential (09/27/2024 5:42 AM PRESCHOOL TEACHER) [facility] WBC 8.8 3.8 - 9.9 K/cumm Hgb 7.2(L) 11.9 - 15.5 g/dL [facility] Hct 24.6(L) 35.6 - 45.5 % [facility] Plt 280 150 - 400 K/cumm [facility] MPV 11.4 9.1 - 12.3 fL [facility] RBC 2.60(L) 3.90 - 5.20 M/cumm [facility] MCV 94.6 81.3 - 96.4 fL [facility] MCH 27.7 27.1 - 33.3 pg [facility] MCHC 29.3(L) 32.3 - 35.7 g/dL [facility] RDW CV 16.1(H) 11.1 - 14.9 % [facility] RDW SD 54.5(H) 35.7 - 48.1 fL [facility] NRBC abs 0.00 0.00 - 0.01 K/cumm [facility] Blood 09/27/2024 5:42 AM PRESCHOOL TEACHER 09/27/2024 5:55 AM PRESCHOOL TEACHER Arnulfo Jordan MD LAB BLOOD ORDERABLES Final Result [facility] [address] Department [place] [address] * (ABNORMAL) Comprehensive metabolic panel (09/27/2024 5:42 AM PRESCHOOL TEACHER) [facility] Sodium 143 135 - 145 mmol/L Potassium, pl 3.4 3.3 - 4.9 mmol/L [facility] Chloride 110 97 - 110 mmol/L [facility] CO2 22 22 - 32 mmol/L [facility] Anion gap 11 2 - 15 mmol/L [facility] BUN 25 6 - 25 mg/dL [facility] Creatinine 1.16(H) 0.60 - 1.10 mg/dL [facility] Glucose 77 70 - 199 mg/dL [facility] Comment: Interpretive Data Fasting glucose >/= 126 [...] 2022. Calcium 8.0(L) 8.5 - 10.3 mg/dL [facility] Bilirubin, total 0.3 0.1 - 1.2 mg/dL [facility] [facility] Protein, pl 6.0(L) 6.5 - 8.5 g/dL [facility] Albumin 2.1(L) 3.5 - 5.0 g/dL [facility] Alk phos 152(H) 40 - 130 Units/L [facility] ALT 12 7 - 45 Units/L [facility] AST 31 10 - 45 Units/L [facility] Blood 09/27/2024 5:42 AM PRESCHOOL TEACHER 09/27/2024 5:55 AM PRESCHOOL TEACHER Arnulfo Jordan MD LAB BLOOD ORDERABLES Final Result Performing Organization Address [facility] [address] [facility]/ZIP Co de Phone Number [facility] [address] [place] [address] * POCT glucose (09/27/2024 2:14 AM PRESCHOOL TEACHER) [facility] Glucose, POC 78 70 - 199 mg/dL Comment: For Glucose values <35 mg/dl when Hematocrit is >60 mg/dl,the test may not accurately detect significant hypoglycemia,and testing in the Laboratory should be considered if clinically indicated. Blood 09/27/2024 2:14 AM PRESCHOOL TEACHER 09/27/2024 2:14 AM PRESCHOOL TEACHER Arnulfo Jordan MD LAB POCT ORDERABLES - DEVIC E Final Result Performing Organization Address City/[facility] [address]/ZIP Co de Phone Number [facility] [address] [place] [address] * POCT glucose (09/26/2024 9:41 PM PRESCHOOL TEACHER) Glucose, POC 79 70 - 199 mg/dL Comment: For Glucose values <35 mg/dl when Hematocrit is >60 mg/dl,the test may not accurately detect significant hypoglycemia,and testing in the Laboratory should be considered if clinically indicated. Blood 09/26/2024 9:41 PM PRESCHOOL TEACHER 09/26/2024 9:41 PM PRESCHOOL TEACHER Arnulfo Jordan MD LAB POCT ORDERABLES - DEVIC E Final Result Performing Organization Address City/[facility] [address]/ZIP Co de Phone Number [facility] [address] [place] [address] * POCT glucose (09/26/2024 6:18 PM PRESCHOOL TEACHER) Glucose, POC 91 70 - 199 mg/dL Comment: For Glucose values <35 mg/dl when Hematocrit is >60 mg/dl,the test may not accurately detect significant hypoglycemia,and testing in the Laboratory should be considered if clinically indicated. Blood 09/26/2024 6:18 PM PRESCHOOL TEACHER 09/26/2024 6:18 PM PRESCHOOL TEACHER Arnulfo Jordan MD LAB POCT ORDERABLES - DEVIC E Final Result Performing Organization Address City/[facility] [address]/ZIP Co de Phone Number [facility] [address] [place] [address] * POCT glucose (09/26/2024 2:51 PM PRESCHOOL TEACHER) Glucose, POC 89 70 - 199 mg/dL Comment: For Glucose values <35 mg/dl when Hematocrit is >60 mg/dl,the test may not accurately detect significant hypoglycemia,and testing in the Laboratory should be considered if clinically indicated. Blood 09/26/2024 2:51 PM PRESCHOOL TEACHER 09/26/2024 2:51 PM PRESCHOOL TEACHER Arnulfo Jordan MD LAB POCT ORDERABLES - DEVIC E Final Result Performing Organization Address [facility] [address]/[facility] Co de Phone Number [facility] [address] [place] [address] * (ABNORMAL) CBC with auto differential (09/26/2024 2:03 PM PRESCHOOL TEACHER) [facility] WBC 8.6 3.8 - 9.9 K/cumm Hgb 7.3(L) 11.9 - 15.5 g/dL [facility] Hct 24.2(L) 35.6 - 45.5 % [facility] Plt 308 150 - 400 K/cumm [facility] MPV 11.5 9.1 - 12.3 fL [facility] RBC 2.52(L) 3.90 - 5.20 M/cumm [facility] MCV 96.0 81.3 - 96.4 fL [facility] MCH 29.0 27.1 - 33.3 pg [facility] MCHC 30.2(L) 32.3 - 35.7 g/dL [facility] RDW CV 16.0(H) 11.1 - 14.9 % [facility] RDW SD 55.1(H) 35.7 - 48.1 fL [facility] NRBC abs 0.00 0.00 - 0.01 K/cumm [facility] Blood 09/26/2024 2:03 PM PRESCHOOL TEACHER 09/26/2024 2:11 PM PRESCHOOL TEACHER Arnulfo Jordan MD LAB BLOOD ORDERABLES Final Result Performing Organization Address City/[facility] [address]/ZIP Co de Phone Number [facility] [address] Department [place], [place] [id number] * (ABNORMAL) eGFR (09/26/2024 1:25 PM PRESCHOOL TEACHER) [facility] eGFR 57(L) >=60 mL/min/1. 73 m2 [...] last reviewed 2021. Blood 09/26/2024 1:25 PM PRESCHOOL TEACHER 09/26/2024 1:33 PM PRESCHOOL TEACHER us Arnulfo Jordan MD LAB BLOOD ORDERABLES Final Result [facility] [address] Department [place] [address] * Differential, auto (09/26/2024 1:25 PM PRESCHOOL TEACHER) Neutrophil abs See Comment 1.5 - 6.5 Comment:CBC to be recollecte d due to possible falsely low Hgb on09/26/2024 13:53:40 PRESCHOOL TEACHER [id number] Imm gran abs See Comment 0.0 - 0.1 [facility] Comment:CBC to be recollecte d due to possible falsely low Hgb on09/26/2024 13:53:40 PRESCHOOL TEACHER [id number] Lymphocyte abs See Comment 0.8 - 3.3 [facility] Comment:CBC to be recollecte d due to possible falsely low Hgb on09/26/2024 13:53:40 PRESCHOOL TEACHER [id number] Monocyte abs See Comment 0.2 - 0.8 [facility] Comment:CBC to be recollecte d due to possible falsely low Hgb on09/26/2024 13:53:40 PRESCHOOL TEACHER [id number] Eosinophil abs See Comment 0.0 - 0.5 [facility] Comment:CBC to be recollecte d due to possible falsely low Hgb on09/26/2024 13:53:40 PRESCHOOL TEACHER [id number] Basophil abs See Comment 0.0 - 0.1 [facility] Comment:CBC to be recollecte d due to possible falsely low Hgb on09/26/2024 13:53:40 PRESCHOOL TEACHER [id number] Neutrophil pct See Comment [facility] Comment: CBC to be recollected due to possible falsely low Hgb on09/26/2024 13:53:40 PRESCHOOL TEACHER [id number] Interpretive Data Percent cell count reference ranges are not reported, since discordance with absolute values may lead to misinterpretation of CBC data. Current Interpretive Data was last revised on 2017. Imm gran pct See Comment [facility] Comment: CBC to be recollected due to possible falsely low Hgb on09/26/2024 13:53:40 PRESCHOOL TEACHER [id number] Interpretive Data Percent cell count reference ranges are not reported, since discordance with absolute values may lead to misinterpretation of CBC data. Current Interpretive Data was last revised on 2017. Lymphocyte pct See Comment [facility] Comment: CBC to be recollected due to possible falsely low Hgb on09/26/2024 13:53:40 PRESCHOOL TEACHER [id number] Interpretive Data Percent cell count reference ranges are not reported, since discordance with absolute values may lead to misinterpretation of CBC data. Current Interpretive Data was last revised on 2017. Monocyte pct See Comment [facility] Comment: CBC to be recollected due to possible falsely low Hgb on09/26/2024 13:53:40 PRESCHOOL TEACHER [id number] Interpretive Data Percent cell count reference ranges are not reported, since discordance with absolute values may lead to misinterpretation of CBC data. Current Interpretive Data was last revised on 2017. Eosinophil pct See Comment [facility] Comment: CBC to be recollected due to possible falsely low Hgb on09/26/2024 13:53:40 PRESCHOOL TEACHER [id number] Interpretive Data Percent cell count reference ranges are not reported, since discordance with absolute values may lead to misinterpretation of CBC data. Current Interpretive Data was last revised on 2017. Basophil pct See Comment [facility] Comment: CBC to be recollected due to possible falsely low Hgb on09/26/2024 13:53:40 PRESCHOOL TEACHER [id number] Interpretive Data Percent cell count reference ranges are not reported, since discordance with absolute values may lead to misinterpretation of CBC data. Current Interpretive Data was last revised on 2017. Blood 09/26/2024 1:25 PM PRESCHOOL TEACHER 09/26/2024 1:33 PM PRESCHOOL TEACHER us Arnulfo Jordan MD LAB BLOOD ORDERABLES Edited Result - Final [facility] [address] Department [place] [address] * CBC with auto differential (09/26/2024 1:25 PM PRESCHOOL TEACHER) WBC See Comment 3.8 - 9.9 Comment: Test results inaccurately filed to this patient's record. Test will be credited. CBC to be recollected due to possible falsely low Hgb on09/26/2024 13:53:40 PRESCHOOL TEACHER [id number] Hgb See Comment 11.9 - 15.5 [facility] Comment: Test results inaccurately filed to this patient's record. Test will be credited. CBC to be recollected due to possible falsely low Hgb on09/26/2024 13:53:40 PRESCHOOL TEACHER [id number] Hct See Comment 35.6 - 45.5 [facility] Comment: Test results inaccurately filed to this patient's record. Test will be credited. CBC to be recollected due to possible falsely low Hgb on09/26/2024 13:53:40 PRESCHOOL TEACHER [id number] Plt See Comment 150 - 400 K/cumm [facility] Comment: Test results inaccurately filed to this patient's record. Test will be credited. CBC to be recollected due to possible falsely low Hgb on09/26/2024 13:53:40 PRESCHOOL TEACHER [id number] MPV See Comment 9.1 - 12.3 [facility] Comment: Test results inaccurately filed to this patient's record. Test will be credited. CBC to be recollected due to possible falsely low Hgb on09/26/2024 13:53:40 PRESCHOOL TEACHER [id number] RBC See Comment 3.90 - 5.20 [facility] Comment: Test results inaccurately filed to this patient's record. Test will be credited. CBC to be recollected due to possible falsely low Hgb on09/26/2024 13:53:40 PRESCHOOL TEACHER [id number] MCV See Comment 81.3 - 96.4 [facility] Comment: Test results inaccurately filed to this patient's record. Test will be credited. CBC to be recollected due to possible falsely low Hgb on09/26/2024 13:53:40 PRESCHOOL TEACHER [id number] MCH See Comment 27.1 - 33.3 [facility] Comment: Test results inaccurately filed to this patient's record. Test will be credited. CBC to be recollected due to possible falsely low Hgb on09/26/2024 13:53:40 PRESCHOOL TEACHER [id number] MCHC See Comment 32.3 - 35.7 [facility] Comment: Test results inaccurately filed to this patient's record. Test will be credited. CBC to be recollected due to possible falsely low Hgb on09/26/2024 13:53:40 PRESCHOOL TEACHER [id number] RDW CV See Comment 11.1 - 14.9 [facility] Comment: Test results inaccurately filed to this patient's record. Test will be credited. CBC to be recollected due to possible falsely low Hgb on09/26/2024 13:53:40 PRESCHOOL TEACHER [id number] RDW SD See Comment 35.7 - 48.1 [facility] Comment: Test results inaccurately filed to this patient's record. Test will be credited. CBC to be recollected due to possible falsely low Hgb on09/26/2024 13:53:40 PRESCHOOL TEACHER [id number] NRBC abs See Comment 0.00 - 0.01 K/cumm [facility] Comment:CBC to be recollecte d due to possible falsely low Hgb on09/26/2024 13:53:40 PRESCHOOL TEACHER [id number] Blood 09/26/2024 1:25 PM PRESCHOOL TEACHER 09/26/2024 1:33 PM PRESCHOOL TEACHER Arnulfo Jordan MD LAB BLOOD ORDERABLES Edited Result - Final [facility] [address] Department [place] [address] * (ABNORMAL) Comprehensive metabolic panel (09/26/2024 1:25 PM PRESCHOOL TEACHER) Sodium 142 135 - 145 mmol/L Potassium, pl 3.2(L) 3.3 - 4.9 mmol/L [facility] Chloride 112(H) 97 - 110 mmol/L [facility] CO2 21(L) 22 - 32 mmol/L [facility] Anion gap 9 2 - 15 mmol/L [facility] BUN 23 6 - 25 mg/dL [facility] Creatinine 1.18(H) 0.60 - 1.10 mg/dL [facility] Glucose 79 70 - 199 mg/dL [facility] Comment: Interpretive Data Fasting glucose >/= 126 [...] 2022. Calcium 7.4(L) 8.5 - 10.3 mg/dL [facility] Bilirubin, total 0.2 0.1 - 1.2 mg/dL [facility] Protein, pl 5.6(L) 6.5 - 8.5 g/dL [facility] Albumin 1.8(L) 3.5 - 5.0 g/dL [facility] Alk phos 135(H) 40 - 130 Units/L [facility] ALT 13 7 - 45 Units/L [facility] AST 32 10 - 45 Units/L [facility] Blood 09/26/2024 1:25 PM PRESCHOOL TEACHER 09/26/2024 1:33 PM PRESCHOOL TEACHER Arnulfo Jordan MD LAB BLOOD ORDERABLES Final Result Performing Organization Address [facility] [address] [facility] Co de Phone Number [facility] [address] [facility] [place] [address] * POCT glucose (09/26/2024 10:10 AM PRESCHOOL TEACHER) Glucose, POC 100 70 - 199 mg/dL Comment: For Glucose values <35 mg/dl when Hematocrit is >60 mg/dl,the test may not accurately detect significant hypoglycemia,and testing in the Laboratory should be considered if clinically indicated. Blood 09/26/2024 10:1 0 AM PRESCHOOL TEACHER 09/26/2024 10:10 AM PRESCHOOL TEACHER Result [facility] Arnulfo Jordan MD LAB POCT ORDERABLES - DEVIC E Final Result Performing Organization Address [facility] [[email or web address]] de Phone Number [facility] [address] [facility] [place] [address] * POCT glucose (09/26/2024 5:04 AM PRESCHOOL TEACHER) Glucose, POC 94 70 - 199 mg/dL Comment: For Glucose values <35 mg/dl when Hematocrit is >60 mg/dl,the test may not accurately detect significant hypoglycemia,and testing in the Laboratory should be considered if clinically indicated. Blood 09/26/2024 5:04 AM PRESCHOOL TEACHER 09/26/2024 5:04 AM PRESCHOOL TEACHER Result [facility] Arnulfo Jordan MD LAB POCT ORDERABLES - DEVIC E Final Result Performing Organization Address [facility] [address]/[facility] Co de Phone Number [facility] [address] [place] [address] * C. difficile testing Stool (09/26/2024 2:18 AM PRESCHOOL TEACHER) GDH Result Negative Negative Toxin Result Negative Negative [facility] C. diff result Negative, free toxin Negative, free toxin [facility] C. diff interp Negative for toxigenic Clostridioides (Clostridium) difficile. Analysis was performed using a glutamate dehydrogenase antigen detection assay combined with a C. difficile toxin detection assay. [facility] Stool 09/26/2024 2:18 AM PRESCHOOL TEACHER 09/26/2024 2:41 AM PRESCHOOL TEACHER Arnulfo Jordan MD LAB MICROBIOLOGY - GENERAL ORDERABLES Final Result Performing Organization Address City/[facility] [address]/[facility] Co de Phone Number [facility] [address] Department [place] [address] * POCT glucose (09/26/2024 12:01 AM PRESCHOOL TEACHER) Glucose, POC 108 70 - 199 mg/dL Comment: For Glucose values <35 mg/dl when Hematocrit is >60 mg/dl,the test may not accurately detect significant hypoglycemia,and testing in the Laboratory should be considered if clinically indicated. Blood 09/26/2024 12:0 1 AM PRESCHOOL TEACHER 09/26/2024 12:01 AM PRESCHOOL TEACHER Arnulfo Jordan MD LAB POCT ORDERABLES - DEVIC E Final Result Performing Organization Address City/[facility] [address]/[facility] Co de Phone Number [facility] [address] [place] [address] * POCT glucose (09/25/2024 8:35 PM PRESCHOOL TEACHER) Glucose, POC 92 70 - 199 mg/dL Comment: For Glucose values <35 mg/dl when Hematocrit is >60 mg/dl,the test may not accurately detect significant hypoglycemia,and testing in the Laboratory should be considered if clinically indicated. Blood 09/25/2024 8:35 PM PRESCHOOL TEACHER 09/25/2024 8:35 PM PRESCHOOL TEACHER Arnulfo Jordan MD LAB POCT ORDERABLES - DEVIC E Final Result Performing Organization Address [facility] [address]/[facility] Co de Phone Number [facility] [address] [facility] [place], [place] [id number] * POCT glucose (09/25/2024 4:36 PM PRESCHOOL TEACHER) Glucose, POC 97 70 - 199 mg/dL Comment: For Glucose values <35 mg/dl when Hematocrit is >60 mg/dl,the test may not accurately detect significant hypoglycemia,and testing in the Laboratory should be considered if clinically indicated. Blood 09/25/2024 4:36 PM PRESCHOOL TEACHER 09/25/2024 4:36 PM PRESCHOOL TEACHER Arnulfo Jordan MD LAB POCT ORDERABLES - DEVIC E Final Result Performing Organization Address [facility] [address]/[facility] [[email or web address]] de Phone Number [facility] [address] [facility] [place] [address] * POCT glucose (09/25/2024 11:55 AM PRESCHOOL TEACHER) Glucose, POC 87 70 - 199 mg/dL Comment: For Glucose values <35 mg/dl when Hematocrit is >60 mg/dl,the test may not accurately detect significant hypoglycemia,and testing in the Laboratory should be considered if clinically indicated. Blood 09/25/2024 11:5 5 AM PRESCHOOL TEACHER 09/25/2024 11:55 AM PRESCHOOL TEACHER Arnulfo Jordan MD LAB POCT ORDERABLES - DEVIC E Final Result Performing Organization Address [facility] [address]/[facility] Co de Phone Number [facility] [address] [facility] [place], [place] [id number] * (ABNORMAL) eGFR (09/25/2024 8:32 AM PRESCHOOL TEACHER) eGFR 53(L) >=60 mL/min/1. 73 m2 Comment: [...] last reviewed 2021. Blood 09/25/2024 8:32 AM PRESCHOOL TEACHER 09/25/2024 8:46 AM PRESCHOOL TEACHER Arnulfo Jordan MD LAB BLOOD ORDERABLES Final Result [facility] [address] Department [place] [address] * (ABNORMAL) Differential, auto (09/25/2024 8:32 AM PRESCHOOL TEACHER) Neutrophil abs 7.2(H) 1.5 - 6.5 K/cumm Imm gran abs 0.1 0.0 - 0.1 K/cumm [facility] Lymphocyte abs 1.1 0.8 - 3.3 K/cumm [facility] Monocyte abs 0.7 0.2 - 0.8 K/cumm [facility] Eosinophil abs 0.2 0.0 - 0.5 K/cumm [facility] Basophil abs 0.1 0.0 - 0.1 K/cumm [facility] Neutrophil pct 78.5 % [facility] Comment: Interpretive Data Percent cell count reference ranges are not reported, since discordance with absolute values may lead to misinterpretation of CBC data. Current Interpretive Data was last revised on 2017. Imm gran pct 0.5 % [facility] Comment: Interpretive Data Percent cell count reference ranges are not reported, since discordance with absolute values may lead to misinterpretation of CBC data. Current Interpretive Data was last revised on 2017. Lymphocyte pct 11.6 % [facility] Comment: Interpretive Data Percent cell count reference ranges are not reported, since discordance with absolute values may lead to misinterpretation of CBC data. Current Interpretive Data was last revised on 2017. Monocyte pct 7.3 % [facility] Comment: Interpretive Data Percent cell count reference ranges are not reported, since discordance with absolute values may lead to misinterpretation of CBC data. Current Interpretive Data was last revised on 2017. Eosinophil pct 1.6 % [facility] Comment: Interpretive Data Percent cell count reference ranges are not reported, since discordance with absolute values may lead to misinterpretation of CBC data. Current Interpretive Data was last revised on 2017. Basophil pct 0.5 % [facility] Comment: Interpretive Data Percent cell count reference ranges are not reported, since discordance with absolute values may lead to misinterpretation of CBC data. Current Interpretive Data was last revised on 2017. Blood 09/25/2024 8:32 AM PRESCHOOL TEACHER 09/25/2024 8:46 AM PRESCHOOL TEACHER us Arnulfo Jordan MD LAB BLOOD ORDERABLES Final Result [facility] [address] Department [place] [address] * POCT glucose (09/25/2024 8:32 AM PRESCHOOL TEACHER) Glucose, POC 89 70 - 199 mg/dL Comment: For Glucose values <35 mg/dl when Hematocrit is >60 mg/dl,the test may not accurately detect significant hypoglycemia,and testing in the Laboratory should be considered if clinically indicated. Blood 09/25/2024 8:32 AM PRESCHOOL TEACHER 09/25/2024 8:32 AM PRESCHOOL TEACHER us Arnulfo Jordna MD LAB POCT ORDERABLES - DEVIC E Final Result Performing Organization Address [facility] Co de Phone Number [facility] [address] Department [place] [address] * (ABNORMAL) CBC with auto differential (09/25/2024 8:32 AM PRESCHOOL TEACHER) [facility] WBC 9.2 3.8 - 9.9 K/cumm Hgb 7.2(L) 11.9 - 15.5 g/dL [facility] Hct 24.6(L) 35.6 - 45.5 % [facility] Plt 259 150 - 400 K/cumm [facility] MPV 11.7 9.1 - 12.3 fL [facility] RBC 2.49(L) 3.90 - 5.20 M/cumm [facility] MCV 98.8(H) 81.3 - 96.4 fL [facility] MCH 28.9 27.1 - 33.3 pg [facility] MCHC 29.3(L) 32.3 - 35.7 g/dL [facility] RDW CV 15.8(H) 11.1 - 14.9 % [facility] RDW SD 55.9(H) 35.7 - 48.1 fL [facility] NRBC abs 0.00 0.00 - 0.01 K/cumm [facility] Blood 09/25/2024 8:32 AM PRESCHOOL TEACHER 09/25/2024 8:46 AM PRESCHOOL TEACHER Arnulfo Jordan MD LAB BLOOD ORDERABLES Final Result Performing Organization Address [facility] Co de Phone Number [facility] [address] [place] [address] * (ABNORMAL) Comprehensive metabolic panel (09/25/2024 8:32 AM PRESCHOOL TEACHER) [facility] Sodium 143 135 - 145 mmol/L Potassium, pl 3.2(L) 3.3 - 4.9 mmol/L [facility] Chloride 111(H) 97 - 110 mmol/L [facility] CO2 20(L) 22 - 32 mmol/L [facility] Anion gap 12 2 - 15 mmol/L [facility] BUN 26(H) 6 - 25 mg/dL [facility] Creatinine 1.24(H) 0.60 - 1.10 mg/dL [facility] Glucose 85 70 - 199 mg/dL [facility] Comment: Interpretive Data Fasting glucose >/= 126 [...] 2022. Calcium 7.7(L) 8.5 - 10.3 mg/dL [facility] Bilirubin, total 0.2 0.1 - 1.2 mg/dL [facility] Protein, pl 5.8(L) 6.5 - 8.5 g/dL [facility] Albumin 1.9(L) 3.5 - 5.0 g/dL [facility] Alk phos 137(H) 40 - 130 Units/L [facility] ALT 13 7 - 45 Units/L [facility] AST 28 10 - 45 Units/L [facility] Blood 09/25/2024 8:32 AM PRESCHOOL TEACHER 09/25/2024 8:46 AM PRESCHOOL TEACHER Arnulfo Jordan MD LAB BLOOD ORDERABLES Final Result [facility] [address] [place] [address] * POCT glucose (09/25/2024 4:49 AM PRESCHOOL TEACHER) [facility] Glucose, POC 86 70 - 199 mg/dL Comment: For Glucose values <35 mg/dl when Hematocrit is >60 mg/dl,the test may not accurately detect significant hypoglycemia,and testing in the Laboratory should be considered if clinically indicated. Blood 09/25/2024 4:49 AM PRESCHOOL TEACHER 09/25/2024 4:49 AM PRESCHOOL TEACHER Arnulfo Jordan MD LAB POCT ORDERABLES - DEVIC E Final Result Performing Organization Address [facility] [address] [facility] Co de Phone Number [facility] [address] [facility] [place] [address] * POCT glucose (09/25/2024 12:48 AM PRESCHOOL TEACHER) Glucose, POC 83 70 - 199 mg/dL Comment: For Glucose values <35 mg/dl when Hematocrit is >60 mg/dl,the test may not accurately detect significant hypoglycemia,and testing in the Laboratory should be considered if clinically indicated. Blood 09/25/2024 12:4 8 AM PRESCHOOL TEACHER 09/25/2024 12:48 AM PRESCHOOL TEACHER Result [facility] Arnulfo Jordan MD LAB POCT ORDERABLES - DEVIC E Final Result Performing Organization Address [facility] [[email or web address] de Phone Number [facility] [address] [facility] [place] [address] * POCT glucose (09/24/2024 8:56 PM PRESCHOOL TEACHER) Glucose, POC 83 70 - 199 mg/dL Comment: For Glucose values <35 mg/dl when Hematocrit is >60 mg/dl,the test may not accurately detect significant hypoglycemia,and testing in the Laboratory should be considered if clinically indicated. Blood 09/24/2024 8:56 PM PRESCHOOL TEACHER 09/24/2024 8:56 PM PRESCHOOL TEACHER Result [facility] Arnulfo Jordan MD LAB POCT ORDERABLES - DEVIC E Final Result Performing Organization Address [facility] [address]/[facility] Co de Phone Number [facility] [address] [facility] [place] [address] * POCT glucose (09/24/2024 4:20 PM PRESCHOOL TEACHER) Glucose, POC 83 70 - 199 mg/dL Comment: For Glucose values <35 mg/dl when Hematocrit is >60 mg/dl,the test may not accurately detect significant hypoglycemia,and testing in the Laboratory should be considered if clinically indicated. Blood 09/24/2024 4:20 PM PRESCHOOL TEACHER 09/24/2024 4:20 PM PRESCHOOL TEACHER Arnulfo Jordan MD LAB POCT ORDERABLES - DEVIC E Final Result Performing Organization Address [facility] [address]/[facility] Co de Phone Number [facility] [address] Department [place] [address] * POCT glucose (09/24/2024 12:13 PM PRESCHOOL TEACHER) Glucose, POC 91 70 - 199 mg/dL Comment: For Glucose values <35 mg/dl when Hematocrit is >60 mg/dl,the test may not accurately detect significant hypoglycemia,and testing in the Laboratory should be considered if clinically indicated. Blood 09/24/2024 12:1 3 PM PRESCHOOL TEACHER 09/24/2024 12:13 PM PRESCHOOL TEACHER Arnulfo Jordan MD LAB POCT ORDERABLES - DEVIC E Final Result Performing Organization Address [facility] [address]/[facility] [[email or web address]] de Phone Number [facility] [address] [place] [address] * XR Chest 1 View (09/24/2024 8:18 AM PRESCHOOL TEACHER) Anatomical Region Laterality Modality Body, Chest N/A Computed Radiogr aphy 09/24/2024 8:36 AM PRESCHOOL TEACHER Impressions 09/24/2024 8:36 AM PRESCHOOL TEACHER Patchy airspace opacities greatest in the left lung base but also projecting over the left hilum and to a lesser extent the right hilum are not substantially changed and likely representing multifocal pneumonia and/or sequela of aspiration. Trace left pleural effusion. No right pleural effusion. No pneumothorax. Heart size is stable. Electronically signed by: Nithin Gonzalez MD, PHD Narrative 09/24/2024 8:36 AM PRESCHOOL TEACHER EXAMINATION: XR CHEST 1 VIEW HISTORY: Shortness [...] lt * POCT glucose (09/24/2024 4:12 AM PRESCHOOL TEACHER) Glucose, POC 129 70 - 199 mg/dL Comment: For Glucose values <35 mg/dl when Hematocrit is >60 mg/dl,the test may not accurately detect significant hypoglycemia,and testing in the Laboratory should be considered if clinically indicated. Blood 09/24/2024 4:12 AM PRESCHOOL TEACHER 09/24/2024 4:12 AM PRESCHOOL TEACHER Arnulfo Jordan MD LAB POCT ORDERABLES - DEVIC E Final Result [facility] [address] Department [place] [address] * POCT glucose (09/24/2024 2:44 AM PRESCHOOL TEACHER) Glucose, POC 132 70 - 199 mg/dL Comment: For Glucose values <35 mg/dl when Hematocrit is >60 mg/dl,the test may not accurately detect significant hypoglycemia,and testing in the Laboratory should be considered if clinically indicated. Blood 09/24/2024 2:44 AM PRESCHOOL TEACHER 09/24/2024 2:44 AM PRESCHOOL TEACHER Arnulfo Jordan MD LAB POCT ORDERABLES - DEVIC E Final Result Performing Organization Address [facility] [address]/[facility] [[email or web address]] de Phone Number [facility] [address] [facility] [place], [place] [id number] * (ABNORMAL) POCT glucose (09/24/2024 1:06 AM PRESCHOOL TEACHER) Glucose, POC 59(L) 70 - 199 mg/dL Comment: For Glucose values <35 mg/dl when Hematocrit is >60 mg/dl,the test may not accurately detect significant hypoglycemia,and testing in the Laboratory should be considered if clinically indicated. Blood 09/24/2024 1:06 AM PRESCHOOL TEACHER 09/24/2024 1:06 AM PRESCHOOL TEACHER Arnulfo Jordan MD LAB POCT ORDERABLES - DEVIC E Final Result Performing Organization Address [facility] de Phone Number [facility] [address] [facility] [place], [place] [id number] * (ABNORMAL) POCT glucose (09/24/2024 12:44 AM PRESCHOOL TEACHER) Glucose, POC 65(L) 70 - 199 mg/dL Comment: For Glucose values <35 mg/dl when Hematocrit is >60 mg/dl,the test may not accurately detect significant hypoglycemia,and testing in the Laboratory should be considered if clinically indicated. Blood 09/24/2024 12:4 4 AM PRESCHOOL TEACHER 09/24/2024 12:44 AM PRESCHOOL TEACHER Arnulfo Jordan MD LAB POCT ORDERABLES - DEVIC E Final Result Performing Organization Address [facility] [address]/[facility] Co de Phone Number [facility] [address] [facility] [place], [place] [id number] * (ABNORMAL) POCT glucose (09/24/2024 12:22 AM PRESCHOOL TEACHER) Glucose, POC 68(L) 70 - 199 mg/dL Comment: For Glucose values <35 mg/dl when Hematocrit is >60 mg/dl,the test may not accurately detect significant hypoglycemia,and testing in the Laboratory should be considered if clinically indicated. Blood 09/24/2024 12:2 2 AM PRESCHOOL TEACHER 09/24/2024 12:22 AM PRESCHOOL TEACHER Arnulfo Jordan MD LAB POCT ORDERABLES - DEVIC E Final Result Performing Organization Address [facility] [address]/[facility] [[email or web address]] de Phone Number [facility] [address] [place] [address] * POCT glucose (09/23/2024 9:34 PM PRESCHOOL TEACHER) Glucose, POC 80 70 - 199 mg/dL Comment: For Glucose values <35 mg/dl when Hematocrit is >60 mg/dl,the test may not accurately detect significant hypoglycemia,and testing in the Laboratory should be considered if clinically indicated. Blood 09/23/2024 9:34 PM PRESCHOOL TEACHER 09/23/2024 9:34 PM PRESCHOOL TEACHER Guillermo Nair DO LAB POCT ORDERABLES - DE VICE Final Result Performing Organization Address [facility] de Phone Number [facility] [address] [place] [address] * POCT glucose (09/23/2024 4:10 PM PRESCHOOL TEACHER) Glucose, POC 121 70 - 199 mg/dL Comment: For Glucose values <35 mg/dl when Hematocrit is >60 mg/dl,the test may not accurately detect significant hypoglycemia,and testing in the Laboratory should be considered if clinically indicated. Blood 09/23/2024 4:10 PM PRESCHOOL TEACHER 09/23/2024 4:10 PM PRESCHOOL TEACHER Guillermo Nair DO LAB POCT ORDERABLES - DE VICE Final Result Performing Organization Address [facility] [address]/[facility] [[email or web address]] de Phone Number [facility] [address] [facility] [place] [address] * POCT glucose (09/23/2024 1:10 PM PRESCHOOL TEACHER) Glucose, POC 115 70 - 199 mg/dL Comment: For Glucose values <35 mg/dl when Hematocrit is >60 mg/dl,the test may not accurately detect significant hypoglycemia,and testing in the Laboratory should be considered if clinically indicated. Blood 09/23/2024 1:10 PM PRESCHOOL TEACHER 09/23/2024 1:10 PM PRESCHOOL TEACHER Flo Villagran MD LAB POCT ORDERABLES - DEVICE Final Result Performing Organization Address [facility] [address]/[facility] Co de Phone Number [facility] [address] [facility] [place] [address] * POCT glucose (09/23/2024 12:18 PM PRESCHOOL TEACHER) Glucose, POC 83 70 - 199 mg/dL Comment: For Glucose values <35 mg/dl when Hematocrit is >60 mg/dl,the test may not accurately detect significant hypoglycemia,and testing in the Laboratory should be considered if clinically indicated. Blood 09/23/2024 12:1 8 PM PRESCHOOL TEACHER 09/23/2024 12:18 PM PRESCHOOL TEACHER Flo Villagran MD LAB POCT ORDERABLES - DEVICE Final Result Performing Organization Address City/[facility] [address]/[facility] Co de Phone Number [facility] [address] [facility] [place] [address] * (ABNORMAL) POCT glucose (09/23/2024 11:55 AM PRESCHOOL TEACHER) Glucose, POC 69(L) 70 - 199 mg/dL Comment: For Glucose values <35 mg/dl when Hematocrit is >60 mg/dl,the test may not accurately detect significant hypoglycemia,and testing in the Laboratory should be considered if clinically indicated. Blood 09/23/2024 11:5 5 AM PRESCHOOL TEACHER 09/23/2024 11:55 AM PRESCHOOL TEACHER Flo Villagran MD LAB POCT ORDERABLES - DEVICE Final Result Performing Organization Address [facility] [address]/[facility] [[email or web address]] de Phone Number [facility] [address] [facility] [place] [address] * (ABNORMAL) POCT glucose (09/23/2024 11:54 AM PRESCHOOL TEACHER) Glucose, POC 63(L) 70 - 199 mg/dL Comment: For Glucose values <35 mg/dl when Hematocrit is >60 mg/dl,the test may not accurately detect significant hypoglycemia,and testing in the Laboratory should be considered if clinically indicated. Blood 09/23/2024 11:5 4 AM PRESCHOOL TEACHER 09/23/2024 11:54 AM PRESCHOOL TEACHER Flo Villagran MD LAB POCT ORDERABLES - DEVICE Final Result Performing Organization Address [facility] de Phone Number [facility] [address] [facility] [place] [address] * POCT glucose (09/23/2024 7:47 AM PRESCHOOL TEACHER) Glucose, POC 71 70 - 199 mg/dL Comment: For Glucose values <35 mg/dl when Hematocrit is >60 mg/dl,the test may not accurately detect significant hypoglycemia,and testing in the Laboratory should be considered if clinically indicated. Blood 09/23/2024 7:47 AM PRESCHOOL TEACHER 09/23/2024 7:47 AM PRESCHOOL TEACHER Flo Villagran MD LAB POCT ORDERABLES - DEVICE Final Result Performing Organization Address [facility] [address]/[facility] [[email or web address]] de Phone Number [facility] [address] [facility] [place] [address] * POCT glucose (09/23/2024 3:27 AM PRESCHOOL TEACHER) Glucose, POC 92 70 - 199 mg/dL Comment: For Glucose values <35 mg/dl when Hematocrit is >60 mg/dl,the test may not accurately detect significant hypoglycemia,and testing in the Laboratory should be considered if clinically indicated. Blood 09/23/2024 3:27 AM PRESCHOOL TEACHER 09/23/2024 3:27 AM PRESCHOOL TEACHER Flo Villagran MD LAB POCT ORDERABLES - DEVICE Final Result Performing Organization Address [facility] [address]/[facility] [[email or web address]] de Phone Number [facility] [address] [facility] [place] [address] * POCT glucose (09/23/2024 1:13 AM PRESCHOOL TEACHER) Glucose, POC 113 70 - 199 mg/dL Comment: For Glucose values <35 mg/dl when Hematocrit is >60 mg/dl,the test may not accurately detect significant hypoglycemia,and testing in the Laboratory should be considered if clinically indicated. Blood 09/23/2024 1:13 AM PRESCHOOL TEACHER 09/23/2024 1:13 AM PRESCHOOL TEACHER Flo Villagran MD LAB POCT ORDERABLES - DEVICE Final Result Performing Organization Address [facility] de Phone Number [facility] [address] [facility] [place] [address] * POCT glucose (09/23/2024 12:17 AM PRESCHOOL TEACHER) Glucose, POC 195 70 - 199 mg/dL Comment: For Glucose values <35 mg/dl when Hematocrit is >60 mg/dl,the test may not accurately detect significant hypoglycemia,and testing in the Laboratory should be considered if clinically indicated. Blood 09/23/2024 12:1 7 AM PRESCHOOL TEACHER 09/23/2024 12:17 AM PRESCHOOL TEACHER Flo Villagran MD LAB POCT ORDERABLES - DEVICE Final Result Performing Organization Address [facility] [address]/[facility] Co de Phone Number [facility] [address] [facility] [place] [address] * (ABNORMAL) POCT glucose (09/22/2024 11:54 PM PRESCHOOL TEACHER) Glucose, POC 63(L) 70 - 199 mg/dL Comment: For Glucose values <35 mg/dl when Hematocrit is >60 mg/dl,the test may not accurately detect significant hypoglycemia,and testing in the Laboratory should be considered if clinically indicated. Blood 09/22/2024 11:5 4 PM PRESCHOOL TEACHER 09/22/2024 11:54 PM PRESCHOOL TEACHER Flo Villagran MD LAB POCT ORDERABLES - DEVICE Final Result Performing Organization Address [facility] [address]/[facility] Co de Phone Number [facility] [address] [place] [address] * (ABNORMAL) Blood gas, arterial (09/22/2024 8:33 PM PRESCHOOL TEACHER) Pathologist [facility] pH, Art 7.44 7.35 - 7.45 PCO2, Arterial 37 35 - 45 mmHg [facility] PO2, Arterial 81(L) 83 - 108 mmHg [facility] HCO3 Art (Calculated) 25 20 - 30 mmol/L [facility] BE, art 1 mmol/L [facility] Comment: Interpretive Data No Reference Range Established Current Interpretive Data was last revised on 2017 O2 Sat Art (Calculated) 96 94 - 98 % [facility] Blood 09/22/2024 8:33 PM PRESCHOOL TEACHER 09/22/2024 8:36 PM PRESCHOOL TEACHER us Chad Veras MD LAB BLOOD ORDERABLES Final R esult Performing Organization Address [facility] [address]/ZIP Co de Phone Number [facility] [address] [place] [address] * POCT glucose (09/22/2024 7:46 PM PRESCHOOL TEACHER) Glucose, POC 95 70 - 199 mg/dL Comment: For Glucose values <35 mg/dl when Hematocrit is >60 mg/dl,the test may not accurately detect significant hypoglycemia,and testing in the Laboratory should be considered if clinically indicated. Blood 09/22/2024 7:46 PM PRESCHOOL TEACHER 09/22/2024 7:46 PM PRESCHOOL TEACHER Flo Villagran MD LAB POCT ORDERABLES - DEVICE Final Result Performing Organization Address [facility] [address]/[facility] Co de Phone Number [facility] [address] [facility] [place] [address] * POCT glucose (09/22/2024 4:04 PM PRESCHOOL TEACHER) Glucose, POC 166 70 - 199 mg/dL Comment: For Glucose values <35 mg/dl when Hematocrit is >60 mg/dl,the test may not accurately detect significant hypoglycemia,and testing in the Laboratory should be considered if clinically indicated. Blood 09/22/2024 4:04 PM PRESCHOOL TEACHER 09/22/2024 4:04 PM PRESCHOOL TEACHER Flo Villagran MD LAB POCT ORDERABLES - DEVICE Final Result Performing Organization Address [facility] [[email or web address]] de Phone Number [facility] [address] [facility] [place] [address] * POCT glucose (09/22/2024 11:51 AM PRESCHOOL TEACHER) Glucose, POC 187 70 - 199 mg/dL Comment: For Glucose values <35 mg/dl when Hematocrit is >60 mg/dl,the test may not accurately detect significant hypoglycemia,and testing in the Laboratory should be considered if clinically indicated. Blood 09/22/2024 11:5 1 AM PRESCHOOL TEACHER 09/22/2024 11:51 AM PRESCHOOL TEACHER Flo Villagran MD LAB POCT ORDERABLES - DEVICE Final Result Performing Organization Address [facility] [address]/[facility] Co de Phone Number [facility] [address] [facility] [place] [address] * (ABNORMAL) POCT glucose (09/22/2024 8:42 AM PRESCHOOL TEACHER) Glucose, POC 210(H) 70 - 199 mg/dL Comment: For Glucose values <35 mg/dl when Hematocrit is >60 mg/dl,the test may not accurately detect significant hypoglycemia,and testing in the Laboratory should be considered if clinically indicated. Blood 09/22/2024 8:42 AM PRESCHOOL TEACHER 09/22/2024 8:42 AM PRESCHOOL TEACHER Flo Villagran MD LAB POCT ORDERABLES - DEVICE Final Result Performing Organization Address [facility] [address]/[facility] Co de Phone Number [facility] [address] Department [place] [address] * POCT glucose (09/22/2024 4:05 AM PRESCHOOL TEACHER) Glucose, POC 199 70 - 199 mg/dL Comment: For Glucose values <35 mg/dl when Hematocrit is >60 mg/dl,the test may not accurately detect significant hypoglycemia,and testing in the Laboratory should be considered if clinically indicated. Blood 09/22/2024 4:05 AM PRESCHOOL TEACHER 09/22/2024 4:05 AM PRESCHOOL TEACHER Flo Villagran MD LAB POCT ORDERABLES - DEVICE Final Result Performing Organization Address [facility] [address]/[facility] [[email or web address]] de Phone Number [facility] [address] [place] [address] * XR Chest 1 View (09/22/2024 3:59 AM PRESCHOOL TEACHER) Anatomical Region Laterality Modality Body, Chest N/A Computed Radiogr aphy 09/22/2024 9:18 AM PRESCHOOL TEACHER Impressions 09/22/2024 9:18 AM PRESCHOOL TEACHER The current study is compared with the [...] Blair Lopez M.D. Narrative 09/22/2024 9:18 AM PRESCHOOL TEACHER EXAMINATION: XR CHEST 1 VIEW Procedure Note [...] lt * (ABNORMAL) eGFR (09/22/2024 2:24 AM PRESCHOOL TEACHER) eGFR 53(L) >=60 mL/min/1. 73 m2 Comment: [...] last reviewed 2021. Blood 09/22/2024 2:24 AM PRESCHOOL TEACHER 09/22/2024 2:55 AM PRESCHOOL TEACHER Flo Villagran MD LAB BLOOD ORDERABLES Final R esult Performing Organization Address [facility] [address]/[facility] Co de Phone Number [facility] [address] [place], [place] [id number] * (ABNORMAL) CBC without differential (09/22/2024 2:24 AM PRESCHOOL TEACHER) WBC 15.1(H) 3.8 - 9.9 K/cumm Hgb 7.5(L) 11.9 - 15.5 g/dL [facility] Hct 23.4(L) 35.6 - 45.5 % [facility] Plt 248 150 - 400 K/cumm [facility] MPV 12.5(H) 9.1 - 12.3 fL [facility] RBC 2.55(L) 3.90 - 5.20 M/cumm [facility] MCV 91.8 81.3 - 96.4 fL [facility] MCH 29.4 27.1 - 33.3 pg [facility] MCHC 32.1(L) 32.3 - 35.7 g/dL [facility] RDW CV 15.2(H) 11.1 - 14.9 % [facility] RDW SD 50.1(H) 35.7 - 48.1 fL [facility] NRBC abs 0.00 0.00 - 0.01 K/cumm [facility] Blood 09/22/2024 2:24 AM PRESCHOOL TEACHER 09/22/2024 2:40 AM PRESCHOOL TEACHER Flo Villagran MD LAB BLOOD ORDERABLES Final R esult Performing Organization Address [facility] [address]/[facility] Co de Phone Number [facility] [address] [place] [address] * Magnesium (09/22/2024 2:24 AM PRESCHOOL TEACHER) Pathologist [facility] Magnesium 2.0 1.4 - 2.5 mg/dL Blood 09/22/2024 2:24 AM PRESCHOOL TEACHER 09/22/2024 2:55 AM PRESCHOOL TEACHER us Flo Villagran MD LAB BLOOD ORDERABLES Final R esult [facility] [address] Department [place] [address] * (ABNORMAL) Renal function panel (09/22/2024 2:24 AM PRESCHOOL TEACHER) [facility] Sodium 140 135 - 145 mmol/L Potassium, pl 3.4 3.3 - 4.9 mmol/L [facility] Chloride 108 97 - 110 mmol/L [facility] CO2 20(L) 22 - 32 mmol/L [facility] Anion gap 12 2 - 15 mmol/L [facility] BUN 31(H) 6 - 25 mg/dL [facility] Creatinine 1.25(H) 0.60 - 1.10 mg/dL [facility] Glucose 189 70 - 199 mg/dL [facility] Comment: Interpretive Data Fasting glucose >/= 126 [...] 2022. Calcium 7.5(L) 8.5 - 10.3 mg/dL [facility] Phosphorus, pl 3.6 2.3 - 4.5 mg/dL [facility] Albumin 2.1(L) 3.5 - 5.0 g/dL [facility] Blood 09/22/2024 2:24 AM PRESCHOOL TEACHER 09/22/2024 2:55 AM PRESCHOOL TEACHER Flo Villagran MD LAB BLOOD ORDERABLES Final R esult Performing Organization Address [facility] [address] [facility] Co de Phone Number [facility] [address] [facility] [place], [place] [id number] * POCT glucose (09/21/2024 11:58 PM PRESCHOOL TEACHER) Glucose, POC 177 70 - 199 mg/dL Comment: For Glucose values <35 mg/dl when Hematocrit is >60 mg/dl,the test may not accurately detect significant hypoglycemia,and testing in the Laboratory should be considered if clinically indicated. Blood 09/21/2024 11:5 8 PM PRESCHOOL TEACHER 09/21/2024 11:58 PM PRESCHOOL TEACHER Flo Villagran MD LAB POCT ORDERABLES - DEVICE Final Result Performing Organization Address [facility] de Phone Number [facility] [address] [facility] [place] [address] * POCT glucose (09/21/2024 7:01 PM PRESCHOOL TEACHER) Glucose, POC 134 70 - 199 mg/dL Comment: For Glucose values <35 mg/dl when Hematocrit is >60 mg/dl,the test may not accurately detect significant hypoglycemia,and testing in the Laboratory should be considered if clinically indicated. Blood 09/21/2024 7:01 PM PRESCHOOL TEACHER 09/21/2024 7:01 PM PRESCHOOL TEACHER Flo Villagran MD LAB POCT ORDERABLES - DEVICE Final Result Performing Organization Address [facility] [address] [facility] Co de Phone Number [facility] [address] [facility] [place], [place] [id number] * POCT glucose (09/21/2024 3:10 PM PRESCHOOL TEACHER) Glucose, POC 140 70 - 199 mg/dL Comment: For Glucose values <35 mg/dl when Hematocrit is >60 mg/dl,the test may not accurately detect significant hypoglycemia,and testing in the Laboratory should be considered if clinically indicated. Blood 09/21/2024 3:10 PM PRESCHOOL TEACHER 09/21/2024 3:10 PM PRESCHOOL TEACHER Flo Villagran MD LAB POCT ORDERABLES - DEVICE Final Result Performing Organization Address [facility] [address] [facility] [[email or web address]] de Phone Number [facility] [address] [facility] [place], [place] [id number] * Potassium (09/21/2024 2:07 PM PRESCHOOL TEACHER) Potassium, pl 3.9 3.3 - 4.9 mmol/L Blood 09/21/2024 2:07 PM PRESCHOOL TEACHER 09/21/2024 2:07 PM PRESCHOOL TEACHER Flo Villagran MD LAB BLOOD ORDERABLES Final R esult Performing Organization Address [facility] de Phone Number [facility] [address] [facility] [place], [place] [id number] * (ABNORMAL) POCT glucose (09/21/2024 11:30 AM PRESCHOOL TEACHER) Glucose, POC 200(H) 70 - 199 mg/dL Comment: For Glucose values <35 mg/dl when Hematocrit is >60 mg/dl,the test may not accurately detect significant hypoglycemia,and testing in the Laboratory should be considered if clinically indicated. Blood 09/21/2024 11:3 0 AM PRESCHOOL TEACHER 09/21/2024 11:30 AM PRESCHOOL TEACHER us Flo Villagran MD LAB POCT ORDERABLES - DEVICE Final Result Performing Organization Address [facility] [[email or web address]] de Phone Number [facility] [address] [place], [place] [id number] * (ABNORMAL) POCT glucose (09/21/2024 7:19 AM PRESCHOOL TEACHER) Glucose, POC 230(H) 70 - 199 mg/dL Comment: For Glucose values <35 mg/dl when Hematocrit is >60 mg/dl,the test may not accurately detect significant hypoglycemia,and testing in the Laboratory should be considered if clinically indicated. Blood 09/21/2024 7:19 AM PRESCHOOL TEACHER 09/21/2024 7:19 AM PRESCHOOL TEACHER Flo Villagran MD LAB POCT ORDERABLES - DEVICE Final Result [facility] [address] Department [place] [address] * XR Chest 1 View (09/21/2024 4:44 AM PRESCHOOL TEACHER) Anatomical Region Laterality Modality Body, Chest N/A Computed Radiogr aphy 09/21/2024 7:37 AM PRESCHOOL TEACHER Impressions 09/21/2024 7:37 AM PRESCHOOL TEACHER Comparison is made to 2024. Endotracheal tube 2.7 cm above the jessenia. Nasogastric tube tip located with diaphragm, not included [id number]. There is slightly improved aeration within the left retrocardiac location likely representing improving aspiration/pneumonia. There is mild right basilar atelectasis. No pleural effusion or pneumothorax. Stable heart size. Electronically signed by: Ruiz Coles M.D. Narrative 09/21/2024 7:37 AM PRESCHOOL TEACHER Examination: Chest 1 view Procedure Note Ruiz Coles MD - 09/21/2024 Examination: Chest 1 view IMPRESSION: Comparison is made to 2024. Endotracheal tube 2.7 cm above the jessenia. Nasogastric tube tip located with diaphragm, not included [id number]. There is slightly improved aeration within the left retrocardiac location likely representing improving aspiration/pneumonia. There is mild right basilar atelectasis. No pleural effusion or pneumothorax. Stable heart size. Electronically signed by: Ruiz Coles M.D. Flo Villagran MD IMG XR PROCEDURES Final Resu lt * (ABNORMAL) POCT glucose (09/21/2024 3:47 AM PRESCHOOL TEACHER) Glucose, POC 235(H) 70 - 199 mg/dL Comment: For Glucose values <35 mg/dl when Hematocrit is >60 mg/dl,the test may not accurately detect significant hypoglycemia,and testing in the Laboratory should be considered if clinically indicated. Blood 09/21/2024 3:47 AM PRESCHOOL TEACHER 09/21/2024 3:47 AM PRESCHOOL TEACHER Flo Villagran MD LAB POCT ORDERABLES - DEVICE Final Result Performing Organization Address [facility] [address]/[facility] Co de Phone Number [facility] [address] [place] [address] * (ABNORMAL) eGFR (09/21/2024 1:48 AM PRESCHOOL TEACHER) Pathologist [facility] eGFR 50(L) >=60 mL/min/1. 73 m2 Comment: [...] last reviewed 2021. Blood 09/21/2024 1:48 AM PRESCHOOL TEACHER 09/21/2024 2:06 AM PRESCHOOL TEACHER Flo Villagran MD LAB BLOOD ORDERABLES Final R esult Performing Organization Address [facility] [address]/ZIP Co de Phone Number [facility] [address] Department [place] [address] * (ABNORMAL) CBC without differential (09/21/2024 1:48 AM PRESCHOOL TEACHER) Pathologist [facility] WBC 13.1(H) 3.8 - 9.9 K/cumm Hgb 7.6(L) 11.9 - 15.5 g/dL [facility] Hct 24.6(L) 35.6 - 45.5 % [facility] Plt 229 150 - 400 K/cumm [facility] MPV 12.5(H) 9.1 - 12.3 fL [facility] RBC 2.65(L) 3.90 - 5.20 M/cumm [facility] MCV 92.8 81.3 - 96.4 fL [facility] MCH 28.7 27.1 - 33.3 pg [facility] MCHC 30.9(L) 32.3 - 35.7 g/dL [facility] RDW CV 15.5(H) 11.1 - 14.9 % [facility] RDW SD 51.8(H) 35.7 - 48.1 fL [facility] NRBC abs 0.00 0.00 - 0.01 K/cumm [facility] Blood 09/21/2024 1:48 AM PRESCHOOL TEACHER 09/21/2024 2:06 AM PRESCHOOL TEACHER Flo Villagran MD LAB BLOOD ORDERABLES Final R esult Performing Organization Address [facility] [address]/[facility] Co de Phone Number [facility] [address] Department [place] [address] * Phosphorus (09/21/2024 1:48 AM PRESCHOOL TEACHER) Pathologist [facility] Phosphorus, pl 3.2 2.3 - 4.5 mg/dL Blood 09/21/2024 1:48 AM PRESCHOOL TEACHER 09/21/2024 2:06 AM PRESCHOOL TEACHER Flo Villagran MD LAB BLOOD ORDERABLES Final R esult Performing Organization Address City/[facility] [address]/[facility] Co de Phone Number [facility] [address] [facility] [place] [address] * Magnesium (09/21/2024 1:48 AM PRESCHOOL TEACHER) [facility] Magnesium 2.0 1.4 - 2.5 mg/dL Blood 09/21/2024 1:48 AM PRESCHOOL TEACHER 09/21/2024 2:06 AM PRESCHOOL TEACHER Flo Villagran MD LAB BLOOD ORDERABLES Final R esult Performing Organization Address [facility] [address]/[facility] Co de Phone Number [facility] [address] [facility] [place] [address] * Bilirubin, direct (09/21/2024 1:48 AM PRESCHOOL TEACHER) [facility] Bilirubin, direct <0.2 0.1 - 0.3 mg/dL Blood 09/21/2024 1:48 AM PRESCHOOL TEACHER 09/21/2024 2:06 AM PRESCHOOL TEACHER Flo Villagran MD LAB BLOOD ORDERABLES Final R esult Performing Organization Address [facility] [address]/[facility] Co de Phone Number [facility] [address] [facility] [place] [address] * (ABNORMAL) Comprehensive metabolic panel (09/21/2024 1:48 AM PRESCHOOL TEACHER) [facility] Sodium 144 135 - 145 mmol/L Potassium, pl 2.9(L) 3.3 - 4.9 mmol/L [facility] Chloride 112(H) 97 - 110 mmol/L [facility] CO2 19(L) 22 - 32 mmol/L [facility] Anion gap 13 2 - 15 mmol/L [facility] BUN 32(H) 6 - 25 mg/dL [facility] Creatinine 1.31(H) 0.60 - 1.10 mg/dL [facility] Glucose 259(H) 70 - 199 mg/dL [facility] Comment: Interpretive Data Fasting glucose >/= 126 [...] 2022. Calcium 7.4(L) 8.5 - 10.3 mg/dL [facility] Bilirubin, total 0.2 0.1 - 1.2 mg/dL [facility] Protein, pl 5.6(L) 6.5 - 8.5 g/dL [facility] Albumin 2.0(L) 3.5 - 5.0 g/dL [facility] Alk phos 135(H) 40 - 130 Units/L [facility] ALT 16 7 - 45 Units/L [facility] AST 23 10 - 45 Units/L [facility] Blood 09/21/2024 1:48 AM PRESCHOOL TEACHER 09/21/2024 2:06 AM PRESCHOOL TEACHER us Flo Villagran MD LAB BLOOD ORDERABLES Final R esult Performing Organization Address [facility] [address]/ZIP Co de Phone Number [facility] [address] [place] [address] * Thyroid Function [place] (09/17/2024 4:10 AM PRESCHOOL TEACHER) Pathologist [facility] TSH 1.79 0.30 - 4.20 mcIUnit/mL Blood 09/17/2024 4:10 AM PRESCHOOL TEACHER 09/17/2024 4:10 AM PRESCHOOL TEACHER us Elida Vigil DO LAB BLOOD ORDERABLES F inal Result Performing Organization Address [facility] [address]/ZIP Co de Phone Number [facility] [address] [place] [address] * (ABNORMAL) Hemoglobin A1c (09/13/2024 1:46 AM PRESCHOOL TEACHER) Hgb A1C 9.1(H) 4.0 - 5.6 % Estimated Average Glucose 214 mg/dL [facility] Comment: The ADA recommends reporting an estimated Average Glucose (eAG) with all Hemoglobin A1c results using the equation derived from a study of 507 normal and diabetic adults. Minority populations were underrepresented and children were not included. (Diabetes Care 31:6586-3650, 2008). The eAG is not equivalent to a fasting glucose. Blood 09/13/2024 1:46 AM PRESCHOOL TEACHER 09/13/2024 1:53 AM PRESCHOOL TEACHER Carl Abreu MD LAB BLOOD ORDERABLES Final R esult [facility] [address] Department [place] [address] * COLONOSCOPY REPORT (06/07/2014) Anatomical Region Laterality Modality Other Narrative 06/07/2014 Ordered by an unspecified provider. Historical Provider GI PROCEDURE ORDERABLES F inal Result from Last 3 Months or Most Recently Relevant to Health Maintenance Insurance [facility] MEDICARE ADVANTAGE [facility] Address: [facility] [address] [place] [address] [facility]IC[facility] [place] [facility] MEDICARE ADVANTAGE [facility] Address: [address] [address] [place] [address] [employer] MEDICARE ADVANTAGE MEDICARE Advance Directives For more information, please contact: [phone] Documents on File Type Date Recorded Patient Wheel Press Clerk Expl anation ADVANCE DIRECTIVE 11/10/2024 2:31 PM [...] MILLAN Daughter in Law Health Care Agent [phone] (Mobile ) Care Teams Manufacturing Assistant Relationship Specialty Start Date End Date Donte Lucas PA [address] [place] [id number] PCP - General Physician Cable Installation Technician 08/26/24
--- OUTSIDE RECORDS SUMMARY | 2024-12-19 17:28 | XMS_ITS | Patient Health Record ---
Author Organization [facility] Address [address] [facility] [address] [facility] [address] [place] [address] Care Team Providers Care Plastics Design Engineer Name Role Phone Gilma Chiu Unavailable [phone] REASON FOR REFERRAL No Information MEDICATIONS Medication [...] Notes Problem Hyperkalemia (E87.5) Active confirmed Hyperkalemia (87635659) Problem Heart failure, unspecified (I50.9) Active confirmed Heart failure (76995715) Problem Hypotension, unspecified (I95.9) Active confirmed Hypotension (94585013) Problem Chronic kidney disease, stage 2 (mild) (N18.2) Active confirmed Chronic kidne y disease stage 2 (416841692) Problem Retention of urine, unspecified (R33.9) Active confirmed Retention of urine (099698687) Problem Type 2 diabetes mellitus without complication, unspecified whether retirement insulin use (E11.9) Active confirmed PLAN OF TREATMENT No Information
--- OUTSIDE RECORDS SUMMARY | 2024-12-19 17:28 | XMS_ITS | Encounter Summary ---
Author Organization [facility] Healthcare Address [address] [place] [address] Care Team Providers Care Datapower Consultant Name Role Phone Arnoldo Gary MD Primary Care Provider [phone] Miscellaneous, Not In File Primary Care Provider Unavailable Donte Lucas Primary Care Provider Encounter Details Date Type Department Care Team (Late st Contact Info) Description 09/26/2021 Telephone [facility] Case Management [address] [place] [address] Leydi Bush, RN Social History [...] often do you attend chur ch or buddhist services? 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 difficile suspected 09/25/2024 09/26/202409/26 4:13 AM VENETIAN BLIND INSTALLER documented as of this encounter Care Teams Datapower Consultant Relationship Specialty Start Date End Date Arnoldo Gary MD [address] [place] [address] PCP - General 12/22/17 05/23/23 Miscellaneous, Not In File PCP - General 05/24/23 Donte Lucas PA [address] [place] [address] PCP - General Physician Stroke Belt Sander Operator 08/26/24 documented as of this encounter
--- NOTE | 2024-12-19 17:29 | PC.NURSE ---
LAB, EKG AND XRAY COMPLETED
--- OUTSIDE RECORDS SUMMARY | 2024-12-19 17:29 | XMS_ITS | Patient Health Record ---
Author Organization [facility] [employer] Address [address] [place] [address] Care Team Providers Care Export Traffic Department Manager Name Role Phone Clement Ray Primary Care Provider Unavailab Hunter [place], [place] Unavailable [phone] Allergies Allergen (clinical drug ingredient) Drug/Non Drug [...] 30 Active Vitamin D (Ergocalciferol) 1.25 MG (32503 [place]) Oral for 28 Active Atorvastatin Calcium [...] Problem Status W/U Status Risk Notes Problem 0009066 Hypertensive heart disease with heart failure (I11.0) Active confirmed Well control led in office today. She does note lows at times; will try coreg at 1/2 tab BID. May ultimately have to stop beta rebecca or LOUIE-I. Would like to hold off on midodrine if possible. Problem 649520493 Ischemic cardiomyopathy (I25.5) Active confirmed LVEF 35% on las t echo in our office. Will check echo at [facility] as it has been some time. She will resume lisinopril at low dose and hopefully if compliant with that can get her on some low dose beta rebecca and maybe even Corlanor. She is definitely not an ICD candidate at this point given noncompliance. Again, very akshat discussion today. Problem 762426502 Nonrheumatic tricuspid (valve) insufficiency (I36.1) Active confirmed Problem 471524182 Chronic systolic (congestive) heart failure (I50.22) Active [...] echo at some point next year. 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 Problem 440235600 History of pulmonary embolism (Z86.711) Active confirmed We discussed th e risk of self stopping the Eliquis. will trial Xarelto. Problem 02740450 Cigarette nicotine dependence without complication (F17.210) Active confirmed The patient alamo s continue to smoke. We did spend 3-5 minutes discussing senior living cardiovascular benefits of cessation as well as cessation strategies. He/she will call with any cessation needs. Plan Of Treatment Future Test Test Name Order Date Magnesium, Serum 06/05/2021 Basic Metabolic Panel (8) 06/05/2021 Insurance Providers Payer Name Payer Address Payer Phone Subscriber Number Group Number Insured Name Patient Relationship to Insured Coverage Start Date Coverage End Date [employer] [place] [address] [place] [address] [id number] Brooke Garcia Self - patient is the insured Medicaid [place] [address] [place] [address] [id number] Brooke Garcia Self - patient is the insured Medical (General) History Medical History History ICD Code Heart Cath Blood Clots Insomnia Anxiety High Cholesterol Diabetes 2 Surgical History Surgery Date(Month/Year) broken femur 03/27/2021 uterous removal 1999 unsuccessful tuball tonsils 1980 left big toe amputation 2019 eye surgeries Hospitalization History Reason Date(Month/Year) keyla newmanUgotara 03/27/2021 [facility] [address] [place] [address]
--- OUTSIDE RECORDS SUMMARY | 2024-12-19 17:29 | XMS_ITS | Continuity of Care Document ---
Author Organization [facility] Address [address] [place] [address] Phone Care Team Providers Care Brewing Director Name Role Phone Unavailable Unavailable Unavailable Allergies, [...] Tablet BY MOUTH ONCE DAILY - Active motorized scooter MISCELL MISCELL please issue one size approp wheelchair or scooter for pt mobility and completion of ADL - Active miglitol 100 mg tablet take 1 tablet by oral route 2 times every day at the start (with the first bite) of each main meal 100 MG - Active cetirizine 10 mg tablet TAKE 1 TABLET BY MOUTH ONCE DAILY - Active FreeStyle Carol 2 [place] please issue one reader to monitor constant blood glucose levels - Active FreeStyle Carol 2 Sensor kit please issue one sensor kit every 7-14 days to monitor blood glucose levels constantly. - Active bumetanide 1 mg tablet take 1 tablet by mouth every morning and 1 tablet by mouth every evening - Active lisinopril 2.5 mg tablet take 1 tablet by oral route every day 2.5 MG - Active Levemir FlexPen 100 unit/mL (3 mL) solution subcutaneous insulin pen inject 48 units by subcutaneous route every morning and 10 units at bedtime. - Active doxepin 10 mg capsule take 1 capsule by oral route at bedtime - Active Xarelto 20 mg tablet take [...] Diagnoses Date Provider Providers Copied on Encounter [facility], [address] [place] [address], [address], tel:[phone] *[facility] No Information 4 No Information [facility], [address] [place] [address], [address], tel:[phone] *[facility] No Information 3 No Information [facility], [address] [place] [address], [address], tel:[phone] *[facility] Body mass index [BMI] 32.0-32.9, adult 3 No Information OFFICE/OUTPA TIENT VISIT, EST [facility], [address] [place] [address], [address], tel:[phone] *[facility] Diabetes (chief complaint)R efills (chief complaint) Chronic kidney disease, unspecified CKD stageType 2 diabetes mellitus with hyperglycemiaPa in in unspecified joint 3 No Information [facility], [address] [place] [address], [address], [place] tel:[phone] *[facility] No Information 3 No Information [facility], [address] [place] [address], [address], [place] tel:[phone] *[facility] Abnormal complete blood count 3 No Information OFFICE/OUTPA TIENT VISIT, [facility], [address] [place] [address], [address], [place] tel:[phone] *[facility] Surgery clearance (chief complaint) Body mass index [BMI] 29.0-29.9, adultType 2 diabetes mellitus with hyperglycemiaPo lyneuropathyChr onic systolic (congestive) heart failureChronic kidney disease, unspecified CKD stageAt risk for falling 3 No Information [facility], [address] [place] [address], [address], [place] tel:[phone] *[facility] No Information 3 No Information [facility], [address] [place] [address], [address], [place] tel:[phone] *[facility] Polyneuropathy 3 No Information OFFICE/OUTPA TIENT VISIT, [facility], [address] [place] [address], [address], [place] tel:[phone] *[facility] ear pain bilateral (chief complaint)c hronic conditions (chief complaint)e luke (chief complaint)s ore under left breast (chief complaint) Body mass index [BMI] 31.0-31.9, adultCellulitis of breastAcute serous otitis media, bilateralChroni c systolic (congestive) heart failurePolyneur opathyChronic pain of left knee 3 No Information [facility], [address] [place] [address], [address], [place] tel:[phone] *[facility] No Information 3 No Information OFFICE/OUTPA TIENT VISIT, [facility], [address] [place] [address], [address], tel:[phone] *[facility] pain (chief complaint)U TI (chief complaint)c hronic conditions (chief complaint) Pain in unspecified jointChronic kidney disease, unspecified CKD stageType 2 diabetes mellitus with hyperglycemiaBo dy mass index [BMI] 45.0-49.9, adultUTIChronic systolic (congestive) heart failureCardiomy opathy, unspecifiedAt risk for falling 3 No Information [facility], [address] [place] [address], [address], tel:[phone] *[facility] No Information 3 No Information OFFICE/OUTPA TIENT VISIT, [facility], [address] [place] [address], [address], tel:[phone] *[facility] New Patient (chief [...] guidance, and counseling completed Referral Referred To: [address] [place], [place], [phone] Ordered: Referrals: Oncology. [facility]. Evaluate and treat ordered Referral Ordered: tina -Nephrology (related to Type 2 diabetes mellitus with hyperglycemia) ordered Referral Referred To: tina Ordered: Referrals: Nephrology. tina. Location: [place]. Evaluate and treat ordered Referral Referred To: manda prince Ordered: Referrals: Endocrinology, Diabetes and Metabolism. [facility]. Evaluate and treat ordered Referral Ordered: [facility] -Neurology (related to Polyneuropathy) ordered Referral [facility]erred [facility]: [facility] Ordered: Referrals: Neurology. [facility]. Evaluate and treat ordered Referral Referred To: [facility] [address] [address] [place], [place], [phone] Ordered: Referrals: Orthopedic Surgery. [facility]. Location: [facility]. Evaluate and treat ordered Future Order: Radiol ogy Order US ABDOMEN COMPLETE ([id number]), Ordered on: Ordered Future Order: Lab Order CBC w/AU TO DIFF ([id number]), Ordered on: Ordered Future Order: Lab Order COMPREHE NSIVE METABOLIC PANEL ([id number]), Ordered on: Ordered Future Order: Lab Order GLYCOHEM OGLOBIN (A1c) ([id number]), Ordered on: Ordered Future Order: Lab Order Electroc ardiogram ([id number]), Ordered on: Ordered Future Order: Lab Order LIPID PA KAR ([id number]), Ordered on: Ordered Future Order: Lab Order THYROID STIMULATING HORMONE ([id number]), Ordered on: Ordered Future Order: Lab Order BNP (B-t ype Natriuretic Peptide) ([id number]), Sent on: Sent Future Order: Lab Order COMPREHE NSIVE METABOLIC PANEL ([id number]), Sent on: Sent Future Order: Lab Order CBC w/AU TO DIFF ([id number]), Sent on: Sent Future Order: Lab Order Electroc ardiogram ([id number]), Sent on: Sent Future Order: Radiol ogy Order CHEST 2 VW FRONT & LAT ([id number]), Sent on: Sent Future Order: Radiol ogy Order KNEE, LEFT, (1 OR 2 VIEWS) ([id number]), Ordered on: Ordered History Of Present Illness [...]
--- OUTSIDE RECORDS SUMMARY | 2024-12-19 17:29 | XMS_ITS ---
Author Organization [facility] [employer] Address [address] [address] Care Team Providers Care Philosophy Specialist Name Role Phone Clement Ray Primary Care Provider Unavailab Hunter [place], Ugo Unavailable REASON FOR VISIT Pt missed appt Encounters Encounter Location Date Provider Diagnosis [facility] [address] [place] [address] 06/25/2023 Ugo Benitez Plan Of Treatment No Information Progress Notes * Karyn MARSHALLOB:1975 ( 47 yo F)Acc No.[id number]:06/25/2023 Patient: Brooke Farrar :1975 A ge:47 Y S ex:Female Address:[address] [place], [address] * true * Date: Generated for Printi ng/Fajonathang/eTransmitting on: 0 12/19/2024 05:28 PM CDT
--- OUTSIDE RECORDS SUMMARY | 2024-12-19 17:29 | XMS_ITS | Encounter Summary ---
Author Organization [facility] Address [address] [place] [address] Care Team Providers Care Marine Photographer Name Role Phone Rose Conn MD Unavailable Keith Goodwin MD Unavailable Ace Honeycutt MD Primary Care Provider [phone] Encounter Details Date Type Department Care Team (Late st Contact Info) Description 10/24/2024 Hospital Follow-up Call [facility] Care Unit [address] [place] [address] Florinda Shanks RN Social History Tobacco Use Types Packs/Day Years Used Date Smoking Tobacco: Every Day Cigarettes Smokeless Tobacco: Never Alcohol Use Standard Drinks/Week Comments Never 0 (1 standard drink = 0.6 oz pur e alcohol) [facility] Utilities Answer Date Recorded In the past 12 months has [facility] [employer], gas, oil, or water [employer] threatened to shut off services in your [...] any time in the past 12 m [facility], were you homeless or living in a [facility] (including now)? No 10/15/2024 Comments No Sex and Gender Information Value Date Recorded Sex Assigned at Female 08/31/2024 8:28 AM [employer] SUPERINTENDENT Legal Sex Female 8:37 PM CDT Gender [...] Assessment Author Status No 10/15/2024 12:23 PM [employer] SUPERINTENDENT [place], Jessica B, R N Active * [...] PM CDT [facility]oint[address] [facility] [place] [address] Rose Conn MD [address] [place] [phone] 01/10/2025 1:[address] [facility] [place] [place] [address] Rose Conn MD [address] [place] [phone] 01/20/2025 3:15 PM CDT Office Visit [facility] [address] Rose Conn MD [address] [place] [phone] documented as of this encounter Visit Diagnoses Not on filedocumented in this encounter Additional Health Concerns Infection Onset Date Last Indicated Resolved Time MRSA Comment:Added from external infection. Source: [place], [place] [facility]. 12/24/2017 documented as of this encounter Care Teams Marine Photographer Relationship Specialty Start Date End Date Ace Honeycutt MD [address] [place] [address] PCP - General FAMILY PRACTICE 04/29/24 Rose Conn MD [address] [place] [address] Consulting Physician CARDIOVASCULAR DISEASE 09/07/23 Keith Goodwin MD [address] [place] [address] Consulting Physician INTERNAL MEDICINE 09/22/23 documented as of this encounter
--- OUTSIDE RECORDS SUMMARY | 2024-12-19 17:29 | XMS_ITS | Clinical Summary ---
Author Organization [facility] Address [address] [place] [address] Care Team Providers Care Radio Repair Teacher Name Role Phone Rose Conn MD Unavailable Keith Goodwin MD Unavailable Ace Honeycutt MD Primary Care Provider [phone] Allergies Active Allergy Reactions Criticality Noted Date [...] Blood Gluc Sensor (FREESTYLE DUONG 2 SENSOR) [facility] 10/05/19 24 Active REGRANEX 0.01 % Gel [...] CONCENTRATOR SUPPLY, DME,Indications: CHF (congestive heart failure) ([facility]) 1 Device by Nasal route continuous. [...] Problem Noted Date Diagnosed Date CHF exacerbation (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) 09/15/2023 Diabetic ulcer of right heel associated with type 2 diabetes mellitus, limited to breakdown of skin ([facility]) Encounters Date Type Department Care Team Description 10/24/2024 Hospital Follow-up Call [facility] [address] [place] [address] Florinda Shanks RN 10/19/2024 Travel 10/15/2024 12:14 PM LOOM OPERATOR APPRENTICE - 10/20/2024 4:19 PM CDT Hospital Encounter [facility] [address] [place] [address] Balaji Woodward MD Boddu, Lavanya, MD Discharge Disposition: Home or Self Care (Routine Discharge) 10/14/2024 7:19 PM LOOM OPERATOR APPRENTICE Anesthesia Event [place] [facility] [address] [place] [address] Jeffery Escobar CRNA 10/14/2024 4:10 PM LOOM OPERATOR APPRENTICE - 10/15/2024 11:11 AM LOOM OPERATOR APPRENTICE Hospital Encounter [place] [facility] [address] [place] [address] Matt Mixon DO Dufner, Anastasia M, MD Breathing Problem Discharge Disposition: Transfer to Acute Care Hospital 10/14/2024 Travel from Last 3 Months Family History [...] drink = 0.6 oz pur e alcohol) [facility] Utilities Answer Date Recorded In the past 12 months has e [employer], gas, oil, or water [employer] threatened to shut off services in your [...] time in the past 12 m [facility], were you homeless or living in a chcf (including now)? No 10/15/2024 Comments No Sex and Gender Information Value Date Recorded Sex Assigned at Female 08/31/2024 8:28 AM LOOM OPERATOR APPRENTICE Legal Sex Female 8:37 PM CDT Gender [...] 01/10/2025 12:[address] [place] [address] Rose Conn MD [address] [place] [address] 01/10/2025 1:[address] [place] [address] Rose Conn MD [address] [place] [address] 01/20/2025 3:15 PM CDT Office Visit [facility] [facility] [address] [place] [address] Rose Conn MD [address] [place], [place] [id number] Health Maintenance Due Date Last Done Comments Colorectal Cancer Screening Colonoscopy (10 Years) 1974 Annual Physical 1977 Diabetes: Retinopathy Eye Exam 1992 Hepatitis C 1992 DTaP, Tdap and Td Vaccines (1 - Tdap) 1993 Hepatitis B Vaccines (1 of 3 - 19+ 3-dose series) 1993 Pneumococcal Vaccine: 50+ Years (1 of 2 - PCV) 1993 Mammogram Screening 2014 COVID-19 Vaccine ( season) 2024 PHQ-2 (Physician Loring) 08/10/2024 ASCVD LDL 09/15/2024 09/15/2023 Lipid Panel 09/15/2024 09/15/2023, 04/20/2021 Zoster Vaccines (1 of 2) 2024 Hemoglobin A1C 04/18/2025 10/16/2024, 02/0 11/2024, 06/09/2023, [...] RED BLOOD CELLS Routine 10/16/2024 12:45 AM LOOM OPERATOR APPRENTICE POCT GLUCOSE - CHISHOLM DOCKED DEVICE Routine 10/16/2024 12:11 AM LOOM OPERATOR APPRENTICE HC BLOOD TYPING ABO Routine 10/15/2024 8:00 PM LOOM OPERATOR APPRENTICE HEMOGLOBIN AND HEMATOCRIT Routine 10/15/2024 8:00 PM LOOM OPERATOR APPRENTICE TROPONIN, QUANT Routine 10/15/2024 8:00 PM LOOM OPERATOR APPRENTICE POCT GLUCOSE - CHISHOLM DOCKED DEVICE Routine 10/15/2024 7:59 [address] OPERATOR AP[address] ABD+PEL WO CON STAT 10/15/2024 6:00 PM LOOM OPERATOR APPRENTICE CULTURE, BACTERIA, BLOOD Routine 10/15/2024 3:43 PM LOOM OPERATOR APPRENTICE TYPE & SCREEN Routine 10/15/2024 3:43 PM LOOM OPERATOR APPRENTICE PROTHROMBIN TIME, VENOUS Routine 10/15/2024 3:43 PM LOOM OPERATOR APPRENTICE CBC W/DIFF AUTOMATED Routine 10/15/2024 3:43 PM LOOM OPERATOR APPRENTICE CALCIUM, IONIZED Routine 10/15/2024 3:43 PM LOOM OPERATOR APPRENTICE HEPATIC FUNCTION PANEL Routine 10/15/2024 3:43 PM LOOM OPERATOR APPRENTICE THYROID STIM HORMONE TSH Routine 10/15/2024 3:43 PM LOOM OPERATOR APPRENTICE PHOSPHORUS, INORGANIC PHOSPHATE Routine 10/15/2024 3:43 PM LOOM OPERATOR APPRENTICE LACTIC ACID Routine 10/15/2024 3:43 PM LOOM OPERATOR APPRENTICE MAGNESIUM Routine 10/15/2024 3:43 PM LOOM OPERATOR APPRENTICE TROPONIN, QUANT Routine 10/15/2024 3:43 PM LOOM OPERATOR APPRENTICE BASIC METABOLIC PANEL Routine 10/15/2024 3:43 PM LOOM OPERATOR APPRENTICE PRO-BRAIN NATRIURETIC PEPTIDE STAT 10/15/2024 3:43 PM LOOM OPERATOR APPRENTICE US RETROPERITONEAL LTD Today 10/15/2024 3:21 PM LOOM OPERATOR APPRENTICE POCT GLUCOSE - CHISHOLM DOCKED DEVICE Routine 10/15/2024 3:07 PM LOOM OPERATOR APPRENTICE USE ECHOCARDIOGRAM W CON Routine 10/15/2024 2:34 PM LOOM OPERATOR APPRENTICE CULTURE LOWER RESPIRATORY W/GRAM STAIN Nurse Collected Priority 10/15/2024 2:20 PM LOOM OPERATOR APPRENTICE XR CHEST PORTABLE Routine 10/15/2024 1:43 PM LOOM OPERATOR APPRENTICE RESPIRATORY PCR PANEL 2 Nurse Collected Priority 10/15/2024 1:32 PM LOOM OPERATOR APPRENTICE ECG 12-LEAD STAT 10/15/2024 1:14 PM LOOM OPERATOR APPRENTICE MRSA SCREENING Nurse Collected Priority 10/15/2024 12:54 PM LOOM OPERATOR APPRENTICE HC URINALYSIS AUTO W/MICRO Nurse Collected Priority 10/15/2024 12:54 PM LOOM OPERATOR APPRENTICE URINE BACTERIA CULTURE Nurse Collected Priority 10/15/2024 12:53 PM LOOM OPERATOR APPRENTICE POCT GLUCOSE - CHISHOLM DOCKED DEVICE Routine 10/15/2024 12:37 PM LOOM OPERATOR APPRENTICE POCT GLUCOSE - CHISHOLM DOCKED DEVICE Routine 10/15/2024 11:02 AM LOOM OPERATOR APPRENTICE ECG 12-LEAD Routine 10/15/2024 9:32 AM LOOM OPERATOR APPRENTICE CARDIAC PROFILE Routine 10/15/2024 9:20 AM LOOM OPERATOR APPRENTICE BLOOD GAS, VENOUS STAT 10/15/2024 8:37 AM LOOM OPERATOR APPRENTICE XR CHEST PORTABLE STAT 10/15/2024 8:32 AM LOOM OPERATOR APPRENTICE TRANSFUSE RED BLOOD CELLS Routine 10/15/2024 8:20 AM LOOM OPERATOR APPRENTICE TYPE & SCREEN Routine 10/15/2024 5:17 AM LOOM OPERATOR APPRENTICE LACTIC ACID STAT 10/15/2024 5:17 AM LOOM OPERATOR APPRENTICE POCT GLUCOSE - CHISHOLM DOCKED DEVICE Routine 10/15/2024 4:37 AM LOOM OPERATOR APPRENTICE FOLIC ACID SERUM Routine 10/15/2024 4:24 AM LOOM OPERATOR APPRENTICE VITAMIN B-12 Routine 10/15/2024 4:24 AM LOOM OPERATOR APPRENTICE RETICULOCYTE CT, AUTO Routine 10/15/2024 4:24 AM LOOM OPERATOR APPRENTICE FERRITIN Routine 10/15/2024 4:24 AM LOOM OPERATOR APPRENTICE IRON SAT PANEL (IRON,IBC,%SAT) Routine 10/15/2024 4:24 AM LOOM OPERATOR APPRENTICE COMPREHENSIVE METABOLIC PANEL STAT 10/15/2024 4:24 AM LOOM OPERATOR APPRENTICE CBC W/DIFF AUTOMATED STAT 10/15/2024 4:24 AM LOOM OPERATOR APPRENTICE POCT GLUCOSE - CHISHOLM DOCKED DEVICE Routine 10/14/2024 11:39 PM LOOM OPERATOR APPRENTICE URINE BACTERIA CULTURE STAT 10/14/2024 8:10 PM LOOM OPERATOR APPRENTICE HC URINALYSIS AUTO W/MICRO STAT 10/14/2024 8:10 PM LOOM OPERATOR APPRENTICE IV PLACEMENT Routine 10/14/2024 7:00 PM LOOM OPERATOR APPRENTICE CULTURE, BACTERIA, BLOOD Routine 10/14/2024 6:42 PM LOOM OPERATOR APPRENTICE CULTURE, BACTERIA, BLOOD Routine 10/14/2024 6:37 PM LOOM OPERATOR APPRENTICE XR CHEST PA+LAT STAT 10/14/2024 5:26 PM LOOM OPERATOR APPRENTICE PRO-BRAIN NATRIURETIC PEPTIDE STAT 10/14/2024 5:09 PM LOOM OPERATOR APPRENTICE MAGNESIUM STAT 10/14/2024 5:09 PM LOOM OPERATOR APPRENTICE COMPREHENSIVE METABOLIC PANEL STAT 10/14/2024 5:09 PM LOOM OPERATOR APPRENTICE CBC W/DIFF AUTOMATED STAT 10/14/2024 5:09 PM LOOM OPERATOR APPRENTICE BLOOD GAS, ARTERIAL LAB STAT 10/14/2024 4:56 PM LOOM OPERATOR APPRENTICE POCT GLUCOSE - CHISHOLM DOCKED DEVICE Routine 10/14/2024 4:44 PM LOOM OPERATOR APPRENTICE LIPID PANEL Routine 09/15/2023 9:04 AM LOOM OPERATOR APPRENTICE Familial hypercholesterolemia from Last 3 Months or Most Recently Relevant to Health Maintenance Results * (ABNORMAL) CBC W/DIFF AUTOMATED (10/20/2024 1:58 PM CDT) Only the most recent of6 resultswithin the time period is included. WBC 10.26 4.00 - 10.80 x10'3/uL 10/20/2024 2:15 PM CDT [facility] RBC 3.11(L) 4.10 - 5.40 x10'6/uL 10/20/2024 2:15 PM CDT [facility] HGB 8.8(L) 12.0 - 16.0 G/DL 10/20/2024 2:15 PM CDT [facility] HCT 29.2(L) 36.0 - 47.0 % 10/20/2024 2:15 PM CDT [facility] MCV 93.9 78.0 - 100.0 FL 10/20/2024 2:15 PM CDT [facility] MCH 28.3 27.0 - 31.0 PG 10/20/2024 2:15 PM CDT [facility] MCHC 30.1(L) 33.0 - 36.0 G/DL 10/20/2024 2:15 PM CDT [facility] RDW 18.4(H) 11.5 - 14.5 % 10/20/2024 2:15 PM CDT [facility] PLT 256 150 - 350 x10'3/uL 10/20/2024 2:15 PM CDT [facility] MPV 10.8(H) 7.4 - 10.4 FL 10/20/2024 2:15 PM CDT [facility] DIFFERENTIAL TYPE AUTOMATED DIFFERENTIAL 10/20/2024 2:15 PM CDT [facility] SEG NEUTROPHILS 72.9 % 2:15 PM CDT [facility] LYMPHOCYTES 15.0 % 10/20/2024 2:15 PM CDT [facility] MONOCYTES 9.4 % 10/20/2024 2:15 PM CDT [facility] EOSINOPHILS 2.0 % 10/20/2024 2:15 PM CDT [facility] BASOPHILS 0.1 % 10/20/2024 2:15 PM CDT [facility] IMMATURE GRANS % 0.6 % 10/21/19 2:15 PM CDT [facility] ABS. NEUTROPHILS 7.48 1.60 - 8.30 x10'3/uL 10/20/2024 2:15 PM CDT [facility] ABS. LYMPHOCYTES 1.54 0.80 - 4.70 x10'3/uL 10/20/2024 2:15 PM CDT [facility] ABS. MONOCYTES 0.96 0.00 - 1.50 x10'3/uL 10/20/2024 2:15 PM CDT [facility] ABS. EOSINOPHILS 0.21 0.00 - 0.40 x10'3/uL 10/20/2024 2:15 PM CDT [facility] ABS. BASOPHILS 0.01 0.00 - 0.20 x10'3/uL 10/20/2024 2:15 PM CDT [facility] ABS. IMMATURE GRANULOCYTES 0.06(H) 0.00 - 0.03 x10'3/uL 10/20/2024 2:15 PM CDT [facility] ABS. NUCLEATED RBC'S 0.00 0.00 - 0.01 x10'3/uL 10/20/2024 2:15 PM CDT [facility] NRBC % 0.0 % 10/20/2024 2:15 PM CDT [facility] 10/20/2024 1:58 PM CDT Mari Galeas MD LABORATORY Final Result Performing Organization Address [facility] de Phone Number [facility] [address] [place] [address], [phone] * IMMUNOFIXATION, URINE (10/20/2024 11:30 AM CDT) IMMUNOFIXATION URINE SEE PATHOLOGIST'S INTERPRETATION 10/21/2024 12:52 PM CDT [facility] IMMUNOFIXATION INTERPRETATION (U) THIS URINE IMMUNOTYPING WAS INTERPRETED BY 10/24/2024 10:22 AM CDT [facility] Comment: MD PATTY MAGANA PROTEIN NOT DETECTED. 10/20/2024 11:3 0 AM CDT Maris Aguilar JOINT CREASER URINE ORDERABLES Final R esult Performing Organization Address [facility] Co de Phone Number [facility] [address] [place] [address], [id number] * (ABNORMAL) PROTEIN ELECTROPHORESIS URINE RANDOM (10/20/2024 11:30 AM CDT) PROTEIN URINE TOTAL RANDOM 14.5(H) <12.0 MG/DL 10/21/2024 12:51 PM CDT [facility] INTERPRETATION THIS URINE PEP WAS INTERPRETED BY 10/24/2024 10:20 AM CDT [facility] Comment: DR PAVITHRA FLORENCE MD NO SIGNIFICANT RANDOM PROTEINURIA. THERE IS A TRACE OF ALBUMIN ON ELECTROPHORESIS. BENCE ABRAHAM PROTEIN IS NOT DETECTED. URINE SPECIMEN / Unknown 10/20/2024 11:30 AM CDT Maris Aguilar NP URINE ORDERABLES Final R esult [facility] [address] [place] [address], [id number] * (ABNORMAL) URINALYSIS (10/20/2024 11:30 AM CDT) Only the most recent of3 resultswithin the time period is included. COLOR (U) LIGHT YELLOW 10/20/2024 11:59 AM CDT [facility] TRANSPARENCY CLEAR 10/20/2024 11:59 AM CDT [facility] SPECIFIC GRAVITY (U) 1.012 1.002 - 1.035 10/20/2024 11:59 AM CDT [facility] U PH 7.0 5 - 8 10/20/2024 11:59 AM CDT [facility] PROTEIN RANDOM (U) NEGATIVE NEGATIVE 10/20/2024 11:59 AM CDT [facility] GLUCOSE (U) 100(A) NEGATIVE MG/DL 10/20/2024 11:59 AM CDT [facility] KETONES MG/DL (U) NEGATIVE NEGATIVE 10/20/2024 11:59 AM CDT [facility] BILIRUBIN (U) NEGATIVE NEGATIVE 10/20/2024 11:59 AM CDT [facility] BLOOD (U) 1+(A) NEGATIVE 10/20/2024 11:59 AM CDT [facility] NITRITES NEGATIVE NEGATIVE 10/20/2024 11:59 AM CDT [facility] UROBILINOGEN NORMAL 0 - 1 EU/DL 10/20/2024 11:59 AM CDT [facility] LEUKOCYTES (U) 1+(A) NEGATIVE 10/20/2024 11:59 AM CDT [facility] RBC/HPF 21(H) 0 - 3 /HPF 10/20/2024 11:59 AM CDT [facility] WBC/HPF 3 0 - 6 /HPF 10/20/2024 11:59 AM CDT [facility] BACTERIA (U) NONE /HPF 10/20/2024 11:59 AM CDT [facility] SQUAMOUS EPITHELIALS 12 10/20/2024 11:59 AM CDT [facility] BUDDING YEAST PRESENT 10/20/2024 11:59 AM CDT [facility] HYALINE CASTS 8 10/20/2024 11:59 AM CDT [facility] URINE SPECIMEN OBTAINED BY CLEAN CATCH PROCEDURE / Unknown 10/20/2024 11:30 AM CDT Mari Galeas MD URINE ORDERABLES Final Result [facility] [address] [place] [address], [id number] * (ABNORMAL) POCT glucose (10/20/2024 11:20 AM CDT) Only the most recent of27 resultswithin the time period is included. GLUCOSE POC 185(H) 70 - 109 10/20/2024 11:24 AM CDT [facility] 10/20/2024 11:2 0 AM CDT Mari Galeas MD POCT ORDERABLES - DEVICE Final Result [facility] [address] [place] [address], [place] [phone] [id number] * (ABNORMAL) BASIC METABOLIC PANEL (10/20/2024 2:30 AM CDT) Only the most recent of7 resultswithin the time period is included. Pathologist [facility] SODIUM S/P/B 139 136 - 145 MMOL/L 10/20/2024 3:22 AM CDT [facility] POTASSIUM S/P/B 4.0 3.5 - 5.1 MMOL/L 10/20/2024 3:22 AM CDT [facility] CHLORIDE S/P/B 105 97 - 115 MMOL/L 10/20/2024 3:22 AM CDT [facility] CO2 27.8 21.0 - 32.0 MMOL/L 10/20/2024 3:22 AM CDT [facility] GLUCOSE 242(H) 74 - 106 MG/DL 10/20/2024 3:22 AM CDT [facility] BUN 52(H) 7 - 18 MG/DL 10/20/2024 3:22 AM CDT [facility] CREATININE S/P/B 1.71(H) 0.55 - 1.02 MG/DL 10/20/2024 3:22 AM CDT [facility] CALCIUM S/P/B 8.6 8.5 - 10.1 MG/DL 10/20/2024 3:22 AM CDT [facility] ANION GAP 6.2 2.0 - 10.0 MMOL/L 10/20/2024 3:22 AM CDT [facility] OSMOLALITY (CALC) 310 MOSM/KG 025 3:22 AM CDT [facility] Comment:REFERENCE RANGE NOT ESTABLISHED GFR ESTIMATE 36(L) >90 ML/MIN/1. 73 M2 10/20/2024 3:22 AM CDT [facility] GFR NOTES GFR REFERENCE S: 10/20/2024 3:22 AM CDT [facility] Comment: THE ESTIMATED GFR IS CALCULATED [...] MD LABORATORY Final Result Performing Organization Address [facility] Co de Phone Number [facility] [address] [place] [address], [phone] * MAGNESIUM (10/20/2024 2:30 AM CDT) Only the most recent of8 resultswithin the time period is included. MAGNESIUM 2.0 1.6 - 2.6 MG/DL 10/20/2024 3:22 AM CDT [facility] 10/20/2024 2:30 AM CDT us Balaji Bartlett MD LABORATORY Final Result Performing Organization Address [facility] Co de Phone Number [facility] [address] [place] [address], [phone] * (ABNORMAL) RENAL FUNCTION PANEL (10/19/2024 11:44 PM CDT) Only the most recent of2 resultswithin the time period is included. SODIUM S/P/B 137 136 - 145 MMOL/L 10/20/2024 12:35 AM T [facility] POTASSIUM S/P/B 4.0 3.5 - 5.1 MMOL/L 10/20/2024 12:35 AM T [facility] CHLORIDE S/P/B 103 97 - 115 MMOL/L 10/20/2024 12:35 AM T [facility] CO2 27.7 21.0 - 32.0 MMOL/L 10/20/2024 12:35 AM [facility] GLUCOSE 303(H) 74 - 106 MG/DL 10/20/2024 12:35 AM [facility] BUN 52(H) 7 - 18 MG/DL 10/20/2024 12:35 AM [facility] CREATININE S/P/B 1.78(H) 0.55 - 1.02 MG/DL 10/20/2024 12:35 AM T [facility] CALCIUM S/P/B 8.8 8.5 - 10.1 MG/DL 10/20/2024 12:35 AM [facility] ALBUMIN S/P/B 2.5(L) 3.4 - 5.0 G/DL 10/20/2024 12:35 AM T [facility] PHOSPHORUS 2.8 2.5 - 4.9 MG/DL 10/20/2024 12:35 AM [facility] ANION GAP 6.3 2.0 - 10.0 MMOL/L 10/20/2024 12:35 AM T [facility] OSMOLALITY (CALC) 309 MOSM/KG 025 12:35 AM [facility] Comment:REFERENCE RANGE NOT ESTABLISHED GFR ESTIMATE 35(L) >90 ML/MIN/1. 73 M2 10/20/2024 12:35 AM T [facility] GFR NOTES GFR REFERENCE S: 10/20/2024 12:35 AM CDT [facility] Comment: THE ESTIMATED GFR IS CALCULATED [...] 10/19/2024 11:4 4 PM CDT Maris Aguilar NP LABORATORY Final Re sult Performing Organization Address [facility] de Phone Number [facility] [address] [place] [address], [phone] * (ABNORMAL) ALBUMIN URINE RANDOM W/CREATININE (10/19/2024 4:19 PM CDT) Only the most recent of2 resultswithin the time period is included. ALBUMIN (U) 1.3 MG/DL 10/19/2024 5:08 PM CDT [facility] CREATININE (U) 40.4 MG/DL 10/19/2024 5:08 PM CDT [facility] Comment:REFERENCE RANGE NOT ESTABLISHED MICROALBUMIN (U) 31.4(H) <25.0 MG/G 10/20/19 25 5:08 PM CDT [facility] URINE SPECIMEN / Unknown 10/19/2024 4:19 PM CDT Maris Aguilar NP URINE ORDERABLES Final R esult Performing Organization Address [facility] de Phone Number [facility] [address] [place] [address], [phone] * USV JUSTIN DUPLEX LOW EXT MANPREET (10/19/2024 3:17 PM CDT) Anatomical Region Laterality Modality Extremity Ultrasound 10/19/2024 2:22 PM CDT Narrative 10/20/2024 8:33 AM CDT Vascular Report Pat.Name: CEM MARSHALL Pat.ID: [id number] St.Date: 10/19/2024 Refer.MD: MARI GALEAS Exam Time: 2:22:00 PM Study Type:PVI VENOUS DUPLEX SCAN-LEGS BILAT Height: 65 in Age: 4 1975,48Y Sex: F Sonogrphr: Rene Christiansen RVT Pat. Stat.:Inpatient Room: 504 ICD - 9: M79.89 Swelling of limb CPT - 4: 28338 Venous Duplex LE/UE Reason for Study:Lower limb swelling Race: W ++++++++++++++++++++++++++++++++++++ FINDINGS: ++++++++++++++++++++++++++++++++++++ Bilat: No evidence of acute or chronic thrombosis noted in the deep or superficial veins in either lower extremity. Comments: Technically difficult study due to inability to position. <Electronic Signature> 10/20/2024 08:33 AM Rose Conn M.D. Procedure Note Rose Conn MD - 10/20/2024 Vascular Report Pat.Name: CEM MARSHALL CYNTHIA Pat.ID: [id number] St.Date: 10/19/2024 Refer.MD: MARI GALEAS Exam Time: 2:22:00 PM Study Type:PVI VENOUS DUPLEX SCAN-LEGS BILAT Height: 65 in Age: 4 1975,48Y Sex: F Sonogrphr: Rene Christiansen RVT Pat. Stat.:Inpatient Room: 504 ICD - 9: M79.89 Swelling of limb CPT - 4: 04291 Venous Duplex LE/UE Reason for Study:Lower limb swelling Race: W ++++++++++++++++++++++++++++++++++++ FINDINGS: ++++++++++++++++++++++++++++++++++++ Bilat: No evidence of acute or chronic thrombosis noted in the deep or superficial veins in either lower extremity. Comments: Technically difficult study due to inability to position. <Electronic Signature> 10/20/2024 08:33 AM Rose Conn M.D. Mari Galeas MD [facility] Final Result * (ABNORMAL) CBC, AUTO, NO DIFF (10/18/2024 3:09 AM CDT) Only the most recent of3 resultswithin the time period is included. WBC 11.15(H) 4.00 - 10.80 x10'3/uL 10/18/2024 3:17 AM CDT [facility] RBC 3.07(L) 4.10 - 5.40 x10'6/uL 10/18/2024 3:17 AM CDT [facility] HGB 8.9(L) 12.0 - 16.0 G/DL 10/18/2024 3:17 AM CDT [facility] HCT 28.8(L) 36.0 - 47.0 % 10/18/2024 3:17 AM CDT [facility] MCV 93.8 78.0 - 100.0 FL 10/18/2024 3:17 AM CDT [facility] MCH 29.0 27.0 - 31.0 PG 10/18/2024 3:17 AM CDT [facility] MCHC 30.9(L) 33.0 - 36.0 G/DL 10/18/2024 3:17 AM CDT [facility] RDW 19.1(H) 11.5 - 14.5 % 10/18/2024 3:17 AM CDT [facility] PLT 284 150 - 350 x10'3/uL 10/18/2024 3:17 AM CDT [facility] MPV 10.9(H) 7.4 - 10.4 FL 10/18/2024 3:17 AM CDT [facility] 10/18/2024 3:09 AM CDT Segundo Storm MD LABORATORY Final Result Performing Organization Address [facility] Co de Phone Number [facility] [address] [place] [address], [phone] * PHOSPHORUS, INORGANIC PHOSPHATE (10/18/2024 3:09 AM CDT) Only the most recent of4 resultswithin the time period is included. PHOSPHORUS 4.5 2.5 - 4.9 MG/DL 10/18/2024 3:50 AM CDT [facility] 10/18/2024 3:09 AM CDT Segundo Storm MD LABORATORY Final Result Performing Organization Address [facility] Co de Phone Number [facility] [address] [place] [address], [phone] * CULTURE, BACTERIA BLOOD (10/17/2024 2:27 PM CDT) Only the most recent of4 resultswithin the time period is included. SPEC DESCRIPTION BLOOD 10/18/19 25 2:34 PM CDT [facility] SPECIAL REQUESTS BLOOD-AERO BIC BOTTLE ONLY 10/17/2024 2:34 PM CDT [facility] CULTURE RESULT NO GROWTH 5 DAYS 10/22/2024 2:36 PM CDT [facility] BLOOD SPECIMEN OBTAINED FOR BLOOD CULTURE / Unknown 10/17/2024 2:27 PM CDT 10/17/2024 2:34 PM CDT us Balaji Bartlett MD MICROBIOLOGY - GENERAL ORDER JAROD Final Result Performing Organization Address [facility] Co de Phone Number [facility] [address] [place] [address], [place] [phone] * (ABNORMAL) HEPARIN, ANTI XA, UFH (10/17/2024 1:45 AM CDT) Only the most recent of4 resultswithin the time period is included. HEPARIN ANTI XA UFH 0.15(L) 0.30 - 0.70 IU/ML 10/17/2024 2:09 AM CDT [facility] Comment: UFH Therapeutic Anti Xa Ranges: Medical Therapeutic Range: 0.30 - 0.70 IU/mL Cardiac Therapeutic Range: 0.30 - 0.50 IU/mL Neuro Therapeutic Range: 0.20 - 0.40 IU/mL 10/17/2024 1:45 AM CDT us Balaji Bartlett MD LABORATORY Final Result Performing Organization Address [facility] Co de Phone Number [facility] [address] [place] [address], [place] [phone] * (ABNORMAL) PROTIME/INR, VENOUS (10/17/2024 1:45 AM CDT) Only the most recent of3 resultswithin the time period is included. PROTIME 12.6(H) 9.4 - 12.5 SEC 10/17/2024 3:09 AM CDT [facility] INR 1.1 0.8 - 1.1 10/17/2024 3:09 AM CDT [facility] 10/17/2024 1:45 AM CDT us Balaji Bartlett MD LABORATORY Final Result Performing Organization Address [facility] de Phone Number [facility] [address] [place] [address], [phone] * (ABNORMAL) HEMOGLOBIN AND HEMATOCRIT (10/16/2024 8:00 PM CDT) Only the most recent of2 resultswithin the time period is included. HGB 9.4(L) 12.0 - 16.0 G/DL 10/16/2024 8:03 PM CDT [facility] HCT 31.1(L) 36.0 - 47.0 % 10/16/2024 8:03 PM CDT [facility] 10/16/2024 8:00 PM CDT us Balaji Bartlett MD LABORATORY Final Result Performing Organization Address [facility] de Phone Number [facility] [address] [place] [address], [phone] * (ABNORMAL) POCT ACUTE VENOUS PANEL (10/16/2024 5:14 PM CDT) Only the most recent of2 resultswithin the time period is included. SODIUM WHOLE BLOOD 142 138 - 146 mmol/L 10/16/2024 5:16 PM CDT [facility] POTASSIUM WHOLE BLOOD 5.0(H) 3.5 - 4.9 mmol/L 10/16/2024 5:16 PM CDT [facility] CA IONIZED WH BLOOD 1.23 1.12 - 1.32 mmol/L 10/16/2024 5:16 PM CDT [facility] POC PH VENOUS 7.398 7.31 - 7.41 10/16/2024 5:16 PM CDT [facility] POC PCO2 VENOUS 45.1 41.0 - 51.0 [facility] 10/16/2024 5:16 PM CDT [facility] POC PO2 VENOUS 31 25 - 40 [facility] 10/16/2024 5:16 PM CDT [facility] HCO3 VENOUS 27.9 23 - 28 MMOL/L 10/16/2024 5:16 PM CDT [facility] P[facility] TCO2 VENOUS 29 24 - 29 MMOL/L 10/16/2024 5:16 PM CDT [facility] P[facility] BASE EXCESS VENOUS 3 0 - 3 MMOL/L 10/16/2024 5:16 PM CDT [facility] POC HEMATOCRIT 42 38 - 51 % 10/16/2024 5:16 PM CDT [facility] TIME TEST WAS PERFORMED: 17110/16/2024 5:16 PM CDT [facility] 10/16/2024 5:14 PM CDT Balaji Bartlett MD POCT ORDERABLES - DEVICE Fin al Result [facility] [address] [place] [address], [id number] * (ABNORMAL) POCT ACUTE ARTERIAL PANEL (10/16/2024 12:12 PM CDT) SODIUM WHOLE BLOOD 138 138 - 146 mmol/L 10/16/2024 12:18 PM CDT [facility] POTASSIUM WHOLE BLOOD 5.1(H) 3.5 - 4.9 mmol/L 10/16/2024 12:18 PM CDT [facility] CA IONIZED WH BLOOD 1.25 1.12 - 1.32 mmol/L 10/16/2024 12:18 PM CDT [facility] PH ARTERIAL 7.408 7.35 - 7.45 10/16/2024 12:18 PM CDT [facility] PCO2 ARTERIAL 38.5 35.0 - 45.0 [facility] 10/16/2024 12:18 PM CDT [facility] POC PO2 ARTERIAL 72(L) 80 - 105 [facility] 10/16/2024 12:18 PM CDT [facility] POC HCO3 ARTERIAL 24.3 22 - 26 MMOL/L 10/16/2024 12:18 PM CDT [facility] POC TCO2 ARTERIAL 25 23 - 27 MMOL/L 10/16/2024 12:18 PM CDT [facility] POC BASE EXCESS ARTERIAL 0 0 - 3 MMOL/L 10/16/2024 12:18 PM CDT [facility] POC HEMATOCRIT 28(L) 38 - 51 % 10/16/2024 12:18 PM CDT [facility] TIME TEST WAS PERFORMED: 1212 10/16/2024 12:18 PM CDT [facility] 10/16/2024 12:1 2 PM CDT us Balaji Bartlett MD POCT ORDERABLES - DEVICE Fin al Result [facility] [address] [place] [address], [id number] * ECG 12 lead (10/16/2024 9:01 AM CDT) Only the most recent of3 resultswithin the time period is included. 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 : 1975 Requested By: BALAJI WOODWARD Order Number: [id number] Reading MD: Beto Rosado Measurements Intervals Eads Rate: 123 P: 49 IL: 142 QRS: 8 QRSD: 85 T: 142 QT: 298 QTc: 427 Interpretive Statements SINUS TACHYCARDIA LOW QRS VOLTAGE IN PRECORDIAL LEADS [QRS DEFLECTION < 1.0 mV IN CHEST LEADS] ANTEROLATERAL MYOCARDIAL INFARCTION , OF INDETERMINATE AGE [40+ ms Q WAVE IN I/aVL/V3-V6] sway Procedure Note Beto Rsoado MD - 10/16/2024 [facility] [address] [place] [address] Test Date: 2024-10-16 Pat Name: CEM MARSHALL Department: 1 Room: [place] [address] Gender: Female 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 PNEUMONIAE URINARY AG NEGATIVE NEGATIVE 10/17/2024 3:10 PM CDT [facility] Comment: PRESUMPTIVE NEGATIVE FOR PNEUMOCOCCAL PNEUMONIA, SUGGESTING NO CURRENT OR RECENT PNEUMOCOCCAL INFECTION. INFECTION DUE TO STREPTOCOCCUS PNEUMONIA CANNOT BE RULED OUT SINCE THE ANTIGEN PRESENT IN THE SAMPLE MAY BELOW THE DETECTION LIMIT OF THE TEST. SPECIMEN TYPE URINE CLEAN CATCH 10/15/2024 2:30 PM LOOM OPERATOR APPRENTICE [facility] URINE SPECIMEN OBTAINED BY CLEAN CATCH PROCEDURE / Unknown 10/16/2024 7:00 AM CDT us Balaji Bartlett MD MICROBIOLOGY - GENERAL ORDER JAROD Final Result Performing Organization Address City/[facility]/ZIP Co de Phone Number [facility] [address] [place] [address], [place] [phone] * UREA NITROGEN URINE RANDOM (10/16/2024 7:00 AM CDT) UREA NITROGEN (U) 106 MG/DL 10/16/2024 8:30 AM CDT [facility] Comment:REFERENCE RANGE NOT ESTABLISHED URINE SPECIMEN / Unknown 10/16/2024 7:00 AM CDT us Balaji Bartlett MD URINE ORDERABLES Final Resul t Performing Organization Address [facility] de Phone Number [facility] [address] [place] [address], [place] [phone] * LEGIONELLA AG URINE (10/16/2024 7:00 AM CDT) LEGIONELLA ANTIGEN (URINE) NEGATIVE NEGATIVE 10/17/2024 3:10 PM CDT [facility] Comment: PRESUMPTIVE NEGATIVE FOR L. PNEUMOPHILA [...] ORDER JAROD Final Result Performing Organization Address [facility] Co de Phone Number [facility] [address] [place] [address], [place] [phone] * TRANSFUSE RED BLOOD CELLS (10/16/2024 5:26 AM CDT) Only the most recent of2 resultswithin the time period is included. Balaji Bartlett MD NURSING TREATMENT ORDERABLES - BLOOD ADMIN Final Result * XR CHEST PORTABLE (10/16/2024 4:40 AM CDT) Only the most recent of3 resultswithin the time period is included. Anatomical Region Laterality Modality Chest Radiographic Marya ging 10/16/2024 4:43 AM CDT Impressions 10/16/2024 4:44 AM CDT IMPRESSION: 1. NO SIGNIFICANT INTERVAL CHANGE. Signed: Joseph Doyle MD Referred By: LORENZA INMAN Interpreted By: Joseph Doyle MD, 10/16/2024 4:43 AM Narrative 10/16/2024 4:44 AM [address]T [address] [address] PATIENT NAME: CEM MARSHALL EXAM: Chest one [...] Procedure Note Joseph Doyle MD - 10/16/[address] [address] PATIENT NAME: CEM MARSHALL EXAM: Chest one [...] 7.1(H) <5.7 % 10/16/2024 5:33 AM CDT [facility] ESTIMATED AVG GLUCOSE 157(H) 74 - 114 MG/DL 10/16/2024 5:33 AM CDT [facility] 10/16/2024 4:00 AM CDT Segundo Storm MD LABORATORY Final Result Performing Organization Address City/[facility] Co de Phone Number [facility] [address] [place] [address], [phone] * LACTIC ACID - SINGLE (10/16/2024 4:00 AM CDT) Only the most recent of3 resultswithin the time period is included. LACTIC ACID VENOUS 1.9 0.4 - 2.0 MMOL/L 10/16/2024 4:54 AM CDT [facility] 10/16/2024 4:00 AM CDT Balaji Bartlett MD LABORATORY Final Result Performing Organization Address City/[facility]/ZIP Co de Phone Number [facility] [address] [place] [address], [id number] * BLOOD TYPING, ABO AND RH (10/15/2024 8:00 PM LOOM OPERATOR APPRENTICE) ABO/RH A POSITIVE 10/15/2024 8:43 PM LOOM OPERATOR APPRENTICE [facility] 10/15/2024 8:00 PM LOOM OPERATOR APPRENTICE us Balaji Bartlett MD BLOOD BANK TEST ORDERABLES F inal Result Performing Organization Address [facility] Co de Phone Number [facility] [address] [place] [address], [place] [phone] * (ABNORMAL) TROPONIN, QUANT (10/15/2024 8:00 PM LOOM OPERATOR APPRENTICE) Only the most recent of2 resultswithin the time period is included. TROPONIN I HIGH SENSITIVITY 240(H) 0 - 53 ng/L 10/15/2024 8:51 PM LOOM OPERATOR APPRENTICE [facility] 10/15/2024 8:00 PM LOOM OPERATOR APPRENTICE us Balaji Bartlett MD LABORATORY Final Result Performing Organization Address [facility] de Phone Number [facility] [address] [place] [address], [place] [phone] * CT ABD+PEL WO CON (10/15/2024 6:00 PM LOOM OPERATOR APPRENTICE) Anatomical Region Laterality Modality Abdomen Computed Tomogra phy 10/15/2024 6:13 PM LOOM OPERATOR APPRENTICE Impressions 10/15/2024 6:26 PM LOOM OPERATOR APPRENTICE IMPRESSION: 1. New bibasilar multifocal pneumonia. 2. [...] 10/15/2024 6:13 PM Narrative 10/15/2024 6:26 PM LOOM OPERATOR APPRENTICE [address] [address] EXAMINATION: CT ABD+PEL WO CON DATE: 10/15/2024 [...] Procedure Note Christopher Flaherty MD - 10/15/2024 [facility] [address] [place], [place] [address] EXAMINATION: CT ABD+PEL WO CON DATE: 10/15/2024 [...] (ABNORMAL) PRO-BRAIN NATRIURETIC PEPTIDE (10/15/2024 3:43 PM LOOM OPERATOR APPRENTICE) Only the most recent of2 resultswithin the time period is included. PRO-B TYPE NATRIURETIC PEPTIDE 11,053(H) <125 PG/ML 10/15/2024 4:32 PM LOOM OPERATOR APPRENTICE [facility] Comment: AGE INDEPENDENT: <300 PG/ML HAS [...] 72% FOR ACUTE CHF. 10/15/2024 3:43 PM LOOM OPERATOR APPRENTICE us Segundo Storm MD LABORATORY Final Result [facility] [address] [place] [address], [id number] * TYPE & SCREEN (10/15/2024 3:43 PM LOOM OPERATOR APPRENTICE) Only the most recent of2 resultswithin the time period is included. UNITS ORDERED 1 10/16/2024 12:27 AM LOOM OPERATOR APPRENTICE [facility] ABO/RH A POSITIVE 10/15/2024 6:59 PM LOOM OPERATOR APPRENTICE [facility] ANTIBODY SCREEN NEGATIVE 6:59 PM LOOM OPERATOR APPRENTICE [facility] SAMPLE EXPIRATION 10/18/2024,2359 10/15/2024 3:57 PM LOOM OPERATOR APPRENTICE [facility] BLOOD UNIT NUMBER [id number] 10/16/2024 12:27 AM LOOM OPERATOR APPRENTICE [facility] PRODUCT: PC LEUKOPOOR 10/16/2024 12:27 AM LOOM OPERATOR APPRENTICE [facility] UNIT DIVISION 00 10/16/2024 12:27 AM LOOM OPERATOR APPRENTICE [facility] BLOOD UNIT STATUS TRANSFUSED,FINAL 10/17/2024 7:08 AM CDT [facility] ISSUE DATE/TIME [id number] 025 7:08 AM CDT [facility] PRODUCT CODE [id number] 10/17/2024 7:08 AM CDT [facility] ABO/RH Unit A POS 10/17/2024 7:08 AM CDT [facility] ABO/RH UNIT ISBT CODE 6200 10/17/2024 7:08 AM CDT [facility] BLOOD UNIT EXPIRATION DATE [id number] 10/17/2024 7:08 AM CDT [facility] TRANSFUSION STATUS OK TO TRANSFUSE 10/16/2024 12:27 AM LOOM OPERATOR APPRENTICE [facility] CROSSMATCH COMPATIBLE-EXM 10/16/2024 12:27 AM LOOM OPERATOR APPRENTICE [facility] 10/15/2024 3:43 PM LOOM OPERATOR APPRENTICE us Segundo Storm MD BLOOD BANK TEST ORDERABLES Fin al Result [facility] [address] [place] [address], [id number] * (ABNORMAL) HEPATIC FUNCTION PANEL (10/15/2024 3:43 PM LOOM OPERATOR APPRENTICE) BILIRUBIN TOTAL S/P/B 0.3 0.2 - 1.0 MG/DL 10/15/2024 4:32 PM LOOM OPERATOR APPRENTICE [facility] BILIRUBIN DIRECT S/P/B <0.1 0.0 - 0.2 MG/DL 10/15/2024 4:32 PM LOOM OPERATOR APPRENTICE [facility] ALKALINE PHOSPHATASE S/P/B 117(H) 39 - 100 U/L 10/15/2024 4:32 PM LOOM OPERATOR APPRENTICE [facility] AST 18 15 - 37 U/L 10/15/2024 4:32 PM LOOM OPERATOR APPRENTICE [facility] ALT 17 13 - 56 U/L 10/15/2024 4:32 PM LOOM OPERATOR APPRENTICE [facility] TOTAL PROTEIN S/P/B 6.8 6.4 - 8.2 G/DL 10/15/2024 4:32 PM LOOM OPERATOR APPRENTICE [facility] ALBUMIN S/P/B 1.5(L) 3.4 - 5.0 G/DL 10/15/2024 4:32 PM LOOM OPERATOR APPRENTICE [facility] 10/15/2024 3:43 PM LOOM OPERATOR APPRENTICE Segundo Storm MD LABORATORY Final Result [facility] [address] [place] [address], [id number] * (ABNORMAL) THYROID STIM HORMONE, TSH (10/15/2024 3:43 PM LOOM OPERATOR APPRENTICE) TSH 3.950(H) 0.358 - 3.740 uIU/ML 10/15/2024 4:32 PM LOOM OPERATOR APPRENTICE [facility] Comment: ASSAY PERFORMED BY CHEMILUMINESCENCE METHODOLOGY USING Front Up [employer]. PATIENT RESULTS DETERMINED BY ASSAYS USING DIFFERENT MANUFACTURERS FOR METHODS MAY NOT BE COMPARABLE. 10/15/2024 3:43 PM LOOM OPERATOR APPRENTICE Segundo Storm MD LABORATORY Final Result Performing Organization Address City/[facility]/ZIP Co de Phone Number [facility] [address] [place] [address], [place] [phone] * (ABNORMAL) CALCIUM, IONIZED (10/15/2024 3:43 PM LOOM OPERATOR APPRENTICE) CALCIUM IONIZED 1.12(L) 1.15 - 1.33 MMOL/L 10/15/2024 3:55 PM LOOM OPERATOR APPRENTICE [facility] 10/15/2024 3:43 PM LOOM OPERATOR APPRENTICE Segundo Storm MD LABORATORY Final Result Performing Organization Address [facility] Co de Phone Number [facility] [address] [place] [address], [place] [phone] * US RETROPERITONEAL LTD (10/15/2024 3:21 PM LOOM OPERATOR APPRENTICE) Anatomical Region Laterality Modality Renal Ultrasound 10/15/2024 3:41 PM LOOM OPERATOR APPRENTICE Impressions 10/15/2024 3:49 PM LOOM OPERATOR APPRENTICE Impression: 1. Normal appearance of the right [...] 10/15/2024 3:41 PM Narrative 10/15/2024 3:49 PM LOOM OPERATOR APPRENTICE [facility] [address] [place], [place] [address] Examination: US RETROPERITONEAL LTD Exam Date/Time: 10/15/2024 [...] Procedure Note Christopher Flaherty MD - 10/15/[address] [address] Examination: US RETROPERITONEAL LTD Exam Date/Time: 10/15/2024 [...] USE ECHOCARDIOGRAM W CON (10/15/2024 2:34 PM LOOM OPERATOR APPRENTICE) Anatomical Region Laterality Modality NA Echocardiogram 10/15/2024 1:54 PM LOOM OPERATOR APPRENTICE Narrative 10/16/2024 10:33 AM CDT Echocardiography Report Pat.Name: CEM MARSHALL Pat.ID: [id number] .Date: 10/15/2024 Refer.: [id number] LISSY Morley EWDPROV EWDPROV Exam Time: 1:54:00 PM Study Type:ECHO W/CONTRAST COMPLETE Height: 65 in Weight: 260 lb BSA: 2.21 m2 Age: 4 1975,48Y Sex: F BP: 93/65 HR: 120 bpm Sonogrphr: Adam Gregory [facility] Pat. Stat.:Inpatient Room: [place] [address] CPT - 4: C8929 Reason for Study:Hypoxia [...] Mass 2D Value 234 g LV Mass [id number] Value 106 g/m2 Right Ventricle Right Ventricle [...] 3.2 cm Right Ventricle 2.4 cm Major Eads 7.5 cm MMODE TA Tricuspid Annul 2.22 cm <Electronic Signature> 10/16/2024 10:33 AM Rose Conn M.D. Procedure Note Rose Conn MD - 10/16/2024 Echocardiography Report Pat.Name: JOANNA CEM CYNTHIA Pat.ID: [id number] St.Date: 10/15/2024 Refer.: [id number] LISSY LORENZA M EWDPROV EWDPROV Exam Time: 1:54:00 PM Study Type:ECHO W/CONTRAST COMPLETE Height: 65 in Weight: 260 lb BSA: 2.21 m2 Age: 4 1975,48Y Sex: F BP: 93/65 HR: 120 bpm Sonogrphr: Adam Gregory [facility] Pat. Stat.:Inpatient Room: [place] [address] CPT - 4: C8929 Reason for Study:Hypoxia [...] Mass 2D Value 234 g LV Mass [id number] Value 106 g/m2 Right Ventricle Right Ventricle [...] 3.2 cm Right Ventricle 2.4 cm Major Eads 7.5 cm MMODE TA Tricuspid Annul 2.22 cm <Electronic Signature> 10/16/2024 10:33 AM Rose Conn M.D. us Segundo Storm MD ECHO Final Result * CULTURE, RESPIRATORY W/ GRAM STAIN (10/15/2024 2:20 PM LOOM OPERATOR APPRENTICE) SPEC DESCRIPTION SPUTUM, INDUCED 10/15/2024 2:26 PM LOOM OPERATOR APPRENTICE [facility] SPECIAL REQUESTS NO SPECIAL REQUEST 10/15/2024 2:26 PM LOOM OPERATOR APPRENTICE [facility] GRAM STAIN RESULT <10 EPITHELIAL CELLS PER LPF 10/15/2024 3:23 PM LOOM OPERATOR APPRENTICE [facility] GRAM STAIN RESULT 10-25 NEUTROPHILS PER LPF 10/15/2024 3:23 PM LOOM OPERATOR APPRENTICE [facility] GRAM STAIN RESULT MANY GRAM POSITIVE RODS 10/15/2024 3:23 PM LOOM OPERATOR APPRENTICE [facility] GRAM STAIN RESULT MANY GRAM POSITIVE COCCI IN PAIRS, CHAINS, AND CLUSTERS 10/15/2024 3:23 PM LOOM OPERATOR APPRENTICE [facility] GRAM STAIN RESULT MODERATE BUDDING YEAST CELLS 10/15/2024 3:23 PM LOOM OPERATOR APPRENTICE [facility] GRAM STAIN RESULT FEW GRAM NEGATIVE RODS 10/15/2024 3:23 PM LOOM OPERATOR APPRENTICE [facility] CULTURE RESULT MANY MICROCOCCUS SPECIES 10/17/2024 9:22 AM CDT [facility] CULTURE RESULT FEW ALPHA STREPTOCOCCUS 10/17/2024 9:22 AM CDT [facility] CULTURE RESULT FEW YEAST 10/17/2024 9:22 AM CDT [facility] SPUTUM SPECIMEN OBTAINED BY SPUTUM INDUCTION / Unknown 10/15/2024 2:20 PM LOOM OPERATOR APPRENTICE 10/15/2024 2:38 PM LOOM OPERATOR APPRENTICE Balaji Bartlett MD MICROBIOLOGY - GENERAL ORDER JAROD Final Result Performing Organization Address City/State/[facility] Co de Phone Number [facility] [address] [place] [address], [phone] * BIOFIRE PCR UPPER RESPIRATORY PROFILE (RESPIRATORY PCR PANEL 2) (10/15/2024 1:32 PM LOOM OPERATOR APPRENTICE) ADENOVIRUS PCR (RESP) NOT DETECTED NOT DETECTED 10/15/2024 2:49 PM LOOM OPERATOR APPRENTICE [facility] CORONAVIRUS 229E PCR (RESP) NOT DETECTED NOT DETECTED 10/15/2024 2:49 PM LOOM OPERATOR APPRENTICE [facility] CORONAVIRUS HKU1 PCR (RESP) NOT DETECTED NOT DETECTED 10/15/2024 2:49 PM LOOM OPERATOR APPRENTICE [facility] CORONAVIRUS NL63 PCR (RESP) NOT DETECTED NOT DETECTED 10/15/2024 2:49 PM LOOM OPERATOR APPRENTICE [facility] CORONAVIRUS OC43 PCR (RESP) NOT DETECTED NOT DETECTED 10/15/2024 2:49 PM LOOM OPERATOR APPRENTICE [facility] METAPNEUMOVIRUS PCR (RESP) NOT DETECTED NOT DETECTED 10/15/2024 2:49 PM LOOM OPERATOR APPRENTICE [facility] RHINOVIRUS/ENTEROV IRUS PCR (RESP) NOT DETECTED NOT DETECTED 10/15/2024 2:49 PM LOOM OPERATOR APPRENTICE [facility] INFLUENZA A PCR (RESP) NOT DETECTED NOT DETECTED 10/15/2024 2:49 PM LOOM OPERATOR APPRENTICE [facility] INFLUENZA B PCR (RESP) NOT DETECTED NOT DETECTED 10/15/2024 2:49 PM LOOM OPERATOR APPRENTICE [facility] PARAINFLUENZA 1 PCR (RESP) NOT DETECTED NOT DETECTED 10/15/2024 2:49 PM LOOM OPERATOR APPRENTICE [facility] PARAINFLUENZA 2 PCR (RESP) NOT DETECTED NOT DETECTED 10/15/2024 2:49 PM LOOM OPERATOR APPRENTICE [facility] PARAINFLUENZA 3 PCR (RESP) NOT DETECTED NOT DETECTED 10/15/2024 2:49 PM LOOM OPERATOR APPRENTICE [facility] PARAINFLUENZA 4 PCR (RESP) NOT DETECTED NOT DETECTED 10/15/2024 2:49 PM LOOM OPERATOR APPRENTICE [facility] RSV PCR (RESP) NOT DETECTED NOT DETECTED 10/15/2024 2:49 PM LOOM OPERATOR APPRENTICE [facility] B PARAPERTUSIS PCR (RESP) NOT DETECTED NOT DETECTED 10/15/2024 2:49 PM LOOM OPERATOR APPRENTICE [facility] BORDETELLA PERTUSSIS PCR (RESP) NOT DETECTED NOT DETECTED 10/15/2024 2:49 PM LOOM OPERATOR APPRENTICE [facility] CHLAMYDOPHILA PNEUMONIAE PCR (RESP) NOT DETECTED NOT DETECTED 10/15/2024 2:49 PM LOOM OPERATOR APPRENTICE [facility] MYCOPLASMA PNEUMONIAE PCR (RESP) NOT DETECTED NOT DETECTED 10/15/2024 2:49 PM LOOM OPERATOR APPRENTICE [facility] CORONAVIRUS SARS COV 2 PCR (RESP) NOT DETECTED NOT DETECTED 10/15/2024 2:49 PM LOOM OPERATOR APPRENTICE [facility] NASOPHARYNGEAL SWAB / Unknown 10/15/2024 1:32 PM LOOM OPERATOR APPRENTICE us Balaji Bartlett MD MICROBIOLOGY - GENERAL ORDER JAROD Final Result [facility] [address] [place] [address], [id number] * MRSA SCREENING (10/15/2024 12:54 PM LOOM OPERATOR APPRENTICE) SPECIMEN SOURCE RESPIRATORY, NOSE 10/15/2024 12:53 PM LOOM OPERATOR APPRENTICE [facility] MRSA BY PCR NASAL METHICILLIN RESISTANT STAPH AUREUS NOT DETECTED METHICILLIN RESISTANT STAPH AUREUS NOT DETECTED 10/17/2024 11:28 AM CDT [facility] NASAL STRUCTURE / Unknown 10/15/2024 12:54 PM LOOM OPERATOR APPRENTICE Segundo Storm MD MICROBIOLOGY - GENERAL ORDERAB LES Final Result Performing Organization Address [facility] Co de Phone Number [facility] [address] [place] [address], [phone] * CULTURE, URINE (10/15/2024 12:53 PM LOOM OPERATOR APPRENTICE) Only the most recent of2 resultswithin the time period is included. SPEC DESCRIPTION URINE CLEAN CATCH 10/15/2024 12:57 PM LOOM OPERATOR APPRENTICE [facility] SPECIAL REQUESTS NO SPECIAL REQUEST 10/15/2024 12:57 PM LOOM OPERATOR APPRENTICE [facility] CULTURE RESULT >25,000 TO 50,000 CFU/mL YEAST 10/18/2024 7:42 AM CDT [facility] URINE SPECIMEN OBTAINED BY CLEAN CATCH PROCEDURE / Unknown 10/15/2024 12:53 PM LOOM OPERATOR APPRENTICE 10/15/2024 6:41 PM LOOM OPERATOR APPRENTICE Segundo Storm MD MICROBIOLOGY - GENERAL ORDERAB LES Final Result Performing Organization Address [facility]/ZIP Co de Phone Number [facility] [address] [place] [address], [phone] * CARDIAC PROFILE (CK,CKMB,TROP) (10/15/2024 9:20 AM LOOM OPERATOR APPRENTICE) CPK 33 26 - 192 U/L 10/15/2024 9:[address] [facility] CK-MB <1.0 0.5 - 3.6 NG/ML 10/15/2024 7:22 PM [facility] TROPONIN I HIGH SENSITIVITY 41 0 - 51 ng/L 10/15/2024 9:[address] [facility] 10/15/2024 9:20 AM LOOM OPERATOR APPRENTICE Elida Ma NP LABORATORY Final Result [facility] [address] [place] [address], [facility] [address] [place] [address], [id number] * (ABNORMAL) Blood gas, venous (10/15/2024 8:37 AM LOOM OPERATOR APPRENTICE) PH VENOUS 7.36 7.32 - 7.43 10/15/2024 8:[address] [facility] PCO2 VENOUS 49.0 MMHG 10/15/2024 8:[address] [facility] Comment:NO REFERENCE RANGE H BEEN ESTABLISHED PO2 VENOUS <30.0 MM HG 10/15/2024 8:[address] [facility] Comment:NO REFERENCE RANGE H BEEN ESTABLISHED TOTAL CO2 VENOUS 29.2(H) 22.0 - 26.0 MMOL/L 10/15/2024 8:[address] [facility] BASE EXCESS VENOUS 1.5 MMOL/L 10/15/2024 8:[address] [facility] Comment:NO REFERENCE RANGE H BEEN ESTABLISHED O2 SAT VENOUS NOT CALCULATED % 025 8:[address] [facility] Comment:NO REFERENCE RANGE H BEEN ESTABLISHED BICARB VENOUS 27.7 22.0 - 29.0 MMOL/L 10/15/2024 8:[address] [facility] O2 ADMIN VENOUS 5L 8:[address] [facility] 10/15/2024 8:37 AM LOOM OPERATOR APPRENTICE Lorenza Inman MD LABORATORY Final Resu lt Performing Organization Address [facility] Co de Phone Number [facility] [address] [place] [address], [place] [phone] * (ABNORMAL) IRON SAT PANEL (IRON,IBC,%SAT) (10/15/2024 4:24 AM LOOM OPERATOR APPRENTICE) IRON 33(L) 50 - 170 MCG/DL 10/15/2024 5:13 AM LOOM OPERATOR APPRENTICE [facility] IRON BINDING CAPACITY 197(L) 250 - 450 MCG/DL 10/15/2024 5:13 AM LOOM OPERATOR APPRENTICE [facility] IRON SATURATION 17 % 5:13 AM LOOM OPERATOR APPRENTICE [facility] Comment:REFERENCE RANGE NOT ESTABLISHED 10/15/2024 4:24 AM LOOM OPERATOR APPRENTICE us Issa Blackman MD LABORATORY Final Result Performing Organization Address [facility]/ZIP Co de Phone Number [facility] [address] [place] [phone], * VITAMIN B-12 (10/15/2024 4:24 AM LOOM OPERATOR APPRENTICE) VITAMIN B12 S/P/B 507 193 - 986 PG/ML 10/15/2024 2:10 PM LOOM OPERATOR APPRENTICE [facility] 10/15/2024 4:24 AM LOOM OPERATOR APPRENTICE Issa Blackman MD LABORATORY Final Result Performing Organization Address [facility]/ZIP Co de Phone Number [facility] [address] [place] [address], [place] [phone] * (ABNORMAL) RETICULOCYTE CT, AUTO (10/15/2024 4:24 AM LOOM OPERATOR APPRENTICE) RETICULOCYTE COUNT 6.4(H) 0.6 - 2.3 % 10/15/2024 5:[address] [facility] ABSOLUTE RETICULOCYTE 0.15(H) 0.02 - 0.10 x10'6/uL 10/15/2024 5:[address] [facility] IMMATURE RETIC FRACTION 32.8(H) 3.0 - 15.9 % 10/15/2024 5:[address] [facility] RETIC HGB 24.2(L) 28.0 - 35.0 PG 10/15/2024 5:[address] [facility] 10/15/2024 4:24 AM LOOM OPERATOR APPRENTICE us Issa Blackman MD LABORATORY Final Result [facility] [address] [place] [address], * (ABNORMAL) COMPREHENSIVE METABOLIC PANEL (10/15/2024 4:24 AM LOOM OPERATOR APPRENTICE) Only the most recent of2 resultswithin the time period is included. SODIUM S/P/B 138 136 - 145 MMOL/L 10/15/2024 4:[address] [facility] POTASSIUM S/P/B 4.8 3.5 - 5.1 MMOL/L 10/15/2024 4:[address] [facility] CHLORIDE S/P/B 104 98 - 107 MMOL/L 10/15/2024 4:[address] [facility] CO2 27.4 21.0 - 32.0 MMOL/L 10/15/2024 4:[address] [facility] GLUCOSE 175(H) 70 - 99 MG/DL 10/15/2024 4:[address] [facility] Comment: FASTING GLUCOSE 100 TO 125 MG/DL IS CONSISTENT WITH IMPAIRED FASTING GLUCOSE. FASTING GLUCOSE >125 MG/DL IS CONSISTENT WITH DIABETES. RANDOM GLUCOSE >200 MG/DL WITH HYPERGLYCEMIC SYMPTOMS IS CONSISTENT WITH DIABETES. PER [employer] GUIDELINES BUN 38(H) 6 - 24 MG/DL 10/15/2024 4:[address] [facility] CREATININE S/P/B 1.80(H) 0.55 - 1.02 MG/DL 10/15/2024 4:[address] [facility] CALCIUM S/P/B 8.2(L) 8.4 - 10.5 MG/DL 10/15/2024 4:[address] [facility] BILIRUBIN TOTAL S/P/B 0.2 0.2 - 1.0 MG/DL 10/15/2024 4:[address] [facility] Comment: THIS ASSAY IS NOT RECOMMENDED FOR PATIENTS UNDERGOING TREATMENT WITH ELTROMBOPAG DUE TO THE POTENTIAL FOR FALSELY ELEVATED RESULTS. ALKALINE PHOSPHATASE S/P/B 115(H) 39 - 100 U/L 10/15/2024 4:[address] [facility] AST 12(L) 15 - 37 U/L 10/15/2024 4:[address] [facility] ALT 20 14 - 59 U/L 10/15/2024 4:[address] [facility] TOTAL PROTEIN S/P/B 6.4 6.4 - 8.2 G/DL 10/15/2024 4:[address] [facility] ALBUMIN S/P/B 1.4(L) 3.4 - 5.0 G/DL 10/15/2024 4:[address] [facility] ANION GAP 6.6 5.0 - 15.0 MMOL/L 10/15/2024 4:[address] [facility] OSMOLALITY (CALC) 299 MOSM/KG 025 4:[address] [facility] Comment:REFERENCE RANGE NOT ESTABLISHED GFR ESTIMATE 34(L) >89 ML/MIN/1. 73 M2 10/15/2024 4:[address] [facility] GFR NOTES GFR REFERENCE S: 10/15/2024 4:[address] [facility] Comment: THE ESTIMATED GFR IS [...] FAILURE: <15 ml/min/1.73 m2 10/15/2024 4:24 AM LOOM OPERATOR APPRENTICE Matt Mixon DO LABORATORY Final Result Performing Organization Address City/[facility]/ZIP Co de Phone Number [facility] [address] [place] [address], [place] [phone] * FOLIC ACID SERUM (10/15/2024 4:24 AM LOOM OPERATOR APPRENTICE) FOLATE 6.9 3.1 - 17.5 NG/ML 10/15/2024 2:10 PM LOOM OPERATOR APPRENTICE [facility] 10/15/2024 4:24 AM LOOM OPERATOR APPRENTICE us Issa Blackman MD LABORATORY Final Result Performing Organization Address [facility] Co de Phone Number [facility] [address] [place] [address], [place] [phone] * FERRITIN (10/15/2024 4:24 AM LOOM OPERATOR APPRENTICE) FERRITIN 195.2 8 - 252 NG/ML 10/15/2024 5:27 AM LOOM OPERATOR APPRENTICE [facility] 10/15/2024 4:24 AM LOOM OPERATOR APPRENTICE us Issa Blackman MD LABORATORY Final Result Performing Organization Address City/[facility] Co de Phone Number [facility] [address] [place] [address], [place] [phone] * IV PLACEMENT (10/14/2024 7:00 PM LOOM OPERATOR APPRENTICE) Narrative Jeffery sEcobar CRNA - 10/14/2024 7:00 PM LOOM OPERATOR APPRENTICE Jeffery Escobar CRNA 10/14/2024 7:21 PM Peripheral [...] Tolerance: Tolerated well us Jeffery Escobar CRNA [place] ANESTHESIA Final Res ult * XR CHEST PA+LAT (10/14/2024 5:26 PM LOOM OPERATOR APPRENTICE) Anatomical Region Laterality Modality Chest Radiographic Marya ging 10/14/2024 5:26 PM LOOM OPERATOR APPRENTICE Impressions 10/14/2024 5:27 PM LOOM OPERATOR APPRENTICE Impression: 1. Nonspecific left basilar opacity. 2. Pulmonary vascular congestion. Referred By: Interpreted By: Tyron Fitzgerald MD, 10/14/2024 5:26 PM Narrative 10/14/2024 5:27 PM LOOM OPERATOR APPRENTICE [address] [place] [address] Examination: Chest 2 View History: Shortness of [...] Procedure Note Tyron Fitzgerald MD - 10/14/[address] [place] [address] Examination: Chest 2 View History: Shortness of [...] (ABNORMAL) ARTERIAL BLOOD GAS (10/14/2024 4:56 PM LOOM OPERATOR APPRENTICE) PH ARTERIAL 7.41 7.35 - 7.45 10/14/2024 5:01 PM LOOM OPERATOR APPRENTICE [facility] PCO2 41.0 35.0 - 45.0 MMHG 10/14/2024 5:[address] [facility] PO2 85.0 83 - 108 MMHG 10/14/2024 5:[address] [facility] TOTAL CO2 ARTERIAL 27.3(H) 19.0 - 24.0 MMOL/L 10/14/2024 5:[address] [facility] BASE EXCESS 1.2 0 - 3 MMOL/L 10/14/2024 5:[address] [facility] O2 SATURATION 97 94.0 - 98.0 % 10/14/2024 5:[address] [facility] BICARB ARTERIAL 26.0 21.0 - 28.0 MMOL/L 10/14/2024 5:[address] [facility] SILVIA TEST OK 10/14/2024 4:56 PM LOOM OPERATOR APPRENTICE [facility] O2 ADMIN ARTERIAL 2L NC 10/14/2024 4:[address] [facility] DRAW SITE ARTERIAL RT RADIAL 10/14/2024 4:[address] [facility] 10/14/2024 4:56 PM LOOM OPERATOR APPRENTICE Matt Mixon DO LABORATORY Final Result Performing Organization Address [facility]/ZIP Co de Phone Number [facility] [address] [place] [address], * LIPID PANEL (09/15/2023 9:04 AM LOOM OPERATOR APPRENTICE) CHOLESTEROL 181 MG/DL 09/15/2023 12:44 PM LOOM OPERATOR APPRENTICE [facility] Comment:DESIRABLE: <200 TRIGLYCERIDES 196 MG/DL 09/15/2023 12:44 PM LOOM OPERATOR APPRENTICE [facility] Comment:150-199 BORDERLINE H IGH HDL 55 >49 MG/DL 09/15/2023 12:44 PM LOOM OPERATOR APPRENTICE [facility] LDL-C 87 MG/DL 09/15/2023 12:44 PM LOOM OPERATOR APPRENTICE [facility] Comment:<100 OPTIMAL VLDL CALCULATION 39 MG/DL 09/15/19 12:44 PM LOOM OPERATOR APPRENTICE [facility] Comment:REFERENCE RANGE NOT ESTABLISHED CHOL/HDL RATIO 3.3 09/15/2023 12:44 PM LOOM OPERATOR APPRENTICE [facility] Comment:REFERENCE RANGE NOT ESTABLISHED LDL/HDL 1.6 09/15/2023 12:44 PM LOOM OPERATOR APPRENTICE [facility] Comment:REFERENCE RANGE NOT ESTABLISHED NON HDL CHOLESTEROL 126 MG/DL 09/15/2023 12:44 PM LOOM OPERATOR APPRENTICE [facility] Comment:REFERENCE RANGE NOT ESTABLISHED 09/15/2023 9:04 AM LOOM OPERATOR APPRENTICE Rose Conn MD LABORATORY Final Result Performing Organization Address City/[facility]/ZIP Co de Phone Number [facility] [address] 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 Source: [place], [place], [place] and [facility]. 12/24/2017 Insurance [facility] MEDICAID Advance Directives * POLST (Latest Code [...] 10:10 PM 10/15/2024 12:14 PM Care Teams Radio Repair Teacher Relationship Specialty Start Date End Date Ace Honeycutt MD [address] [place] [phone] PCP - General FAMILY PRACTICE 04/29/24 Rose Conn MD [address] [place] [address] Consulting Physician CARDIOVASCULAR DISEASE 09/07/23 Keith Goodwin MD [address] [place] [address] Consulting Physician INTERNAL MEDICINE 09/22/23
--- OUTSIDE RECORDS SUMMARY | 2024-12-19 17:29 | XMS_ITS | Clinical Summary ---
Author Organization [facility] [employer] Address [address] [place] [address] Care Team Providers Care Hooker Laster Name Role Phone Clement Pinto APRN-GAMING DEALER Primary Care Provider Source Comments [facility] [employer],non-owned Affiliates and Associated Physician Practices is amultiple site organization consisting of ambulatory clinics and hospital sitesin [place], [place], [place] and [place]. This disclosure is being madepursuant to the Care Everywhere program and may not contain all information available regarding this patient. Last updated 18.[employer] Allergies Active Allergy Reactions Criticality Noted Date [...] by mouth once daily Active HYDROcodone-pankaj taminophen ([place]) 5-325 MG tabletIndicatio ns:Post-operati ve state Take [...] on file Legal Sex Female 10:39 AM ADMINISTRATIVE REPRESENTATIVE Gender Identity Not on file Sexual [...] - 19+ 3-dose series) 1993 PNEUMOCOCCAL VACCINE 50+ (1 of 2 - PCV) 1993 COVID-19 [...] patient's age to complete this topic [place] [address] [place] [address] [facility] [place] [place] Care Teams Hooker Laster Relationship Specialty Start Date End Date Clement Pinto APRN-JANENE [address] [place] [phone] PCP - General Nurse Practitioner Family 05/13/23
--- OUTSIDE RECORDS SUMMARY | 2024-12-19 17:29 | XMS_ITS | Encounter Summary ---
Author Organization [facility] Care Team Providers Care Rubber Splicer Name Role Phone Donte Lucas Rochelle [facility] Primary Care Provider [phone] Encounter Details Date Type Department Care Team (Latest Contact Info) Description 12/19/2024 Travel Social History Tobacco Use Types Packs/Day Years Used Date Smoking Tobacco: Never Assessed Comments Unknown Sex and Gender Information Value Date Recorded Sex Assigned at Not on file Legal Sex Female 1:58 PM STUDENT COUNSELLOR Gender Identity Not on file Sexual Orientation Not on file documented as of this encounter Plan of Treatment Upcoming Encounters Date Type Department Care Team (Late st Contact Info) Description 12/20/2024 1:00 AM CDT Home Care Visit [address] [address] Mai Bass RN [place] 12/20/2024 2:00 AM CDT Home Care Visit [facility] [address] Brooke Burt OTA [place] 12/21/2024 10:30 AM CDT Home Care Visit [facility] [address] Elisa Pollack, [place] 12/22/2024 1:00 AM [facility] [address] [address] Brooke Burt [place] 12/26/2024 1:00 AM CDT Home Care Visit [facility] [address] Elisa Pollack, [place] 12/27/2024 1:00 AM CDT Home Care Visit [facility] [address] Mai Bass, RN [place] 12/27/2024 2:00 AM CDT Home Care Visit [facility] [address] Brooke Burt, ACCOUNTS PAYABLE ASSISTANT [place] 12/28/2024 1:00 AM CDT Home Care Visit [facility] [address] Maggie Murguia, PT 12/29/2024 1:00 AM CDT Home Care Visit [facility] [address] Kathrin Mcmullen, OT 01/03/2025 1:00 AM CDT Home Care Visit [facility] [address] Mai Bass, RN [place] 01/10/2025 1:00 AM CDT Home Care Visit [facility] [address] Mai Bass, RN [place] 01/17/2025 1:00 AM CDT Home Care Visit [facility] [address] Mai Bass, RN [place] 01/24/2025 1:00 AM CDT Home Care Visit [facility] [address] Mai Bass, RN [place] 01/31/2025 1:00 AM CDT Appointment [address] [address] Mai Bass, RN [place] documented as of this encounter Visit Diagnoses Not on filedocumented in this encounter Care Teams Rubber Splicer Relationship Specialty Start Date End Date Donte Lucas PAC [address] [place] [address] PCP - General Physician Molding Utility Worker 10/01/24 documented as of this encounter
--- OUTSIDE RECORDS SUMMARY | 2024-12-19 17:29 | XMS_ITS | Patient Health Record ---
Author Organization [facility] [place] Address [address] [place], [place] [id number] Care Team Providers Care Adding Machine Servicer Name Role Phone Arnoldo Gary Unavailable Unavailable [...] diabetes mellitus without complications (E11.9) Active confirmed Problem Spondylosis without myelopathy or radiculopathy, lumbar region (M47.816) Active confirmed Lumbosacral spondylosis without myelopathy (40230966) Problem Spondylosis without myelopathy or radiculopathy, lumbosacral region (M47.817) Active confirmed Lumbosacral spondylosis without myelopathy (disorder) (78210646) PLAN OF TREATMENT Pending Test Test Name [...]
--- OUTSIDE RECORDS SUMMARY | 2024-12-19 17:29 | XMS_ITS | Continuity of Care Document ---
Author Organization [facility] Address [address] [place] [address] Phone Care Team Providers Care Sand Worker Name Role Phone Arnulfo Farrell Unavailable Unavailable Advance Directives Directive Yes / No Effective Date File Name No Information Encounters Encounter Description Practice Location Reason(s) For Visit Diagnoses Date Provider Providers Copied on Encounter [facility], [address] [place] [address], [facility], tel:[phone] *[facility] No Information Bud Arredondo. [address] [place] [address], [facility], . tel:[phone] Family History Family Member Type Diagnosis Age [...]
--- OUTSIDE RECORDS SUMMARY | 2024-12-19 17:29 | XMS_ITS | Encounter Summary ---
Author Organization [employer] Address [address] [place] [address] Care Team Providers Care Hand Paint Mixer Name Role Phone Arnoldo Gary MD Primary Care Provider [phone] Encounter Details Date Type Department Care Team (Late st Contact Info) Description 01/25/2002 Inpatient Historical HIS INPATIENT IN BED Palak Shah MD [address] [place] [address] [place] [address] Say Patricio MD [address] [facility] [address] [place] [address] POISONING-ANTITUSSI VES (Primary Dx) Social History Tobacco Use Types Packs/Day Years Used Date Smoking Tobacco: Never Assessed Comments Unknown Sex and Gender Information Value Date Recorded Sex Assigned at Not on file Legal Sex Female 3:51 AM GATE AGENT Gender Identity Not on file Sexual Orientation [...] documented as of this encounter Care Teams Hand Paint Mixer Relationship Specialty Start Date End Date Arnoldo Gary MD [address] [place] [address] PCP - General Internal Medicine 03/27/21 documented as of this encounter
--- OUTSIDE RECORDS SUMMARY | 2024-12-19 17:29 | XMS_ITS | Encounter Summary ---
Author Organization [facility] Address [address] [facility] [place] [address] Phone Care Team Providers Care Grazing Examiner Name Role Phone ShadyalbertoDonte Primary Care Provider [phone] Reason for Visit * Auth/Cert (Routine) Specialty Diagnoses / Procedures Referred By Jadyn benitez Referred To Contact Referral ID Status Reason Start Date Expiration Date Visits Re quested Visits Authorized [id number] Encounter Details Date Type Department Care Team (Late Contact Info) Description 12/19/2024 9:00 AM CDT Home Care Visit [address] [address] Elisa Pollack, [place] PT - HOME VISIT Social History Tobacco Use Types Packs/Day Years Used Date Smoking Tobacco: Never Assessed Comments Unknown Sex and Gender Information Value Date Recorded Sex Assigned at Not on file Legal Sex Female 1:58 PM ARCHEOLOGIST Gender Identity Not on file Sexual Orientation Not on file documented as of this encounter Last Filed Vital Signs Vital Sign Reading Time Taken Comments Blood Pressure - - Pulse - - Temperature 36 C (96.8 F) 12/19/2024 9:11 AM CDT Respiratory Rate 18 12/19/2024 9:11 AM CDT Oxygen Saturation - - Inhaled Oxygen Concentration - - Weight - - Height - - Body Mass Index - - documented in this encounter Plan of Treatment Upcoming Encounters Date Type Department Care Team ([facility] Contact Info) Description 12/20/2024 1:00 AM CDT Home Care Visit [address] [address] Mai Bass RN [place] 12/20/2024 2:00 AM CDT Home Care Visit [address] [address] Brooke Burt, [place] 12/21/2024 10:30 AM CDT [facility] [address] [place] [address] Elisa Pollack, [place] 12/22/2024 1:00 AM CDT [facility] [address] [place] [address] Brooke Burt, [place] 12/26/2024 1:00 AM CDT [facility] Visit [facility] [address] [place] [address] Elisa Pollack, [place] 12/27/2024 1:00 AM CDT [facility] [address] [place] [address] Mai Bass, [place] 12/27/2024 2:00 AM CDT Home Care Visit [facility] [address] Brooke Burt, WRAP KNITTING MACHINE OPERATOR [place] 12/28/2024 1:00 AM CDT [facility] [address] [place] [address] Maggie Murguia, PT 12/29/2024 1:00 AM CDT Home Care Visit [facility] [address] Kathrin Mcmullen, OT 01/03/2025 1:00 AM CDT [facility] [address] [place] [address] Mai Bass, [place] 01/10/2025 1:00 AM CDT [facility] [address] [place] [address] Mai Bass, [place] 01/17/2025 1:00 AM CDT [facility] [address] [place] [address] Mai Bass, [place] 01/24/2025 1:00 AM CDT [facility] [address] [place] [address] Mai Bass RN [place] 01/31/2025 1:00 AM CDT [facility] [address] [place] [address] Mai Bass RN [place] documented as of this encounter Visit Diagnoses Not on filedocumented in this encounter Home Health Visit - Care Plan Visit Details Visit Type -PT - HOME VISIT Discipline -Physical Therapy Problems Problem Description Start Date Status Goals Interve ntions THERAPY DISEASE MANAGEMENT (O) Disciplines: Therapies 10/07/2024 Active - 2 problem interventions scheduled/documen monty in this visit PHYSICAL THERAPY EVALUATION (O) Disciplines: Physical Therapy PT Evaluation 10/07/2024 Active 1 goal linked to scheduled/document ed intervention 1 goal intervention scheduled/documen monty in this visit PT COMPREHENSIVE Disciplines: Physical Therapy 10/07/2024 Active 7 goals linked to scheduled/document ed interventions 7 goal interventions scheduled/documen monty in this visit Goals Goal Associated Problem Outcome Goal Met? Visit Notes Physical Therapy Evaluation Description: After assessing the patient and discussing the patient's goals the following were identified: Patient centered superintendent terminal goal: return to PLOF. Target Date: by 12-30-24 (date) PHYSICAL THERAPY EVALUATION (O) No PT Balance Description: Generating Station Mechanic Goal: Patient will show improved dynamic standing balance as demonstrated by improved Tinetti score from 16/28 to 19/28 in order to lower risk for falls and Improve functional mobility. To be met by 12-30-24. PT COMPREHENSIVE No PT Activity Tolerance Description: long-term Goal: Patient to demonstrate increased activity tolerance with gait distance of 125 feet as evidenced by a Modified Lam perceived exertion rating of 1/10 or less to facilitate household mobility . To be met by 12-30-24. PT COMPREHENSIVE No PT Stairs and Home Exit Description: Generating Station Mechanic Goal: Patient will require CGA on entry steps or ramp with use of a wheeled walker while maintaining ordered precautions to allow for ability to enter/exit home safely . To be met by 12-30-24. PT COMPREHENSIVE No PT Gait Description: Fdc Goal: Patient will ambulate with independence x 200 feet with use of 4 wheel walker, over even surfaces with the following gait characteristics no LOB in order to safely ambulate into [employer] to obtain groceries. To be met by 12-30-24. PT COMPREHENSIVE No PT Transfers Description: Generating Station Mechanic Goal: Patient will perform sit<>stand transfers with independence with use of a wheeled walker. To be met by 12-30-24. PT COMPREHENSIVE No PT Strength Description: Generating Station Mechanic Goal: Patient will show improved bilateral lower extremity hip strength as demonstrated by improved manual muscle test score to at least 3+/5 . To be met by 12-30-24. PT COMPREHENSIVE No PT HEP Description: Generating Station Mechanic Goal: Patient and/or caregiver will independently with final HEP of strengthening, balance training, conditioning and core strengthening in order to continue making strength gains , improving balance and improving activity tolerance after discharge from home care. To be met by 12-30-24. PT COMPREHENSIVE No Interventions Intervention Associated Problem/Goal Status Variance Visit Notes Therapy Heart Failure Disease Management (O) Description: Monitor patient for signs and symptoms of heart failure exacerbation and report to nurse or physician. Problem:THERAPY DISEASE MANAGEMENT (O) Completed Heart Failure exacerbation symptoms exhibited none. Action taken n/a Therapy Diabetes Disease Management (O) Description: Monitor patient for signs and symptoms of diabetes exacerbation and report to nurse or physician. Problem:THERAPY DISEASE MANAGEMENT (O) Completed Diabetes issues identified: None Action taken: n/a Physical Therapy General (Order Only) Description: Pt's [facility] has been recertified due to the continued need for [facility] services. Pt continues to have a gonzalez catheter. Pt continues to wear 2L O2 at nighttime. [facility] PT referral initially received for diagnosis of difficulty in walking. Pt seen for [facility] PT re-evaluation for new 60 day certification period. Pt would benefit from ongoing skilled [facility] PT for gait/mobility training with walker, balance/endurance training, ther ex, HEP and pt education. [facility] therapy may check oxygen saturation level prn during therapy visits with MD notification if SpO2 maintains below 90%. Pt is aware of the revised plan of care, visit schedule, and goals and is agreeable to continue with [facility] PT. Pt was admitted to [facility] from 10/28/24-11/08/24 for NSTEMI, sepsis, UTI, CHF, and anemia. She returned home with orders for hospice. They came out to see her last week and she did not feel she was ready for hospice so HHC is resuming. She still has her gonzalez catheter and is wearing 2L O2 at bedtime. She has had 1 fall since returning home. Pt has a sore in her R heel and on the top of her L foot. His son is his homemaker for 14 hours/week. She sees her PCP this afternoon. PMH : seizures, CHF, diabetes, PVD, a-fib, PE, CKD, CAD, OA, CVA, L femur fracture. [facility] PT referral initially received for diagnosis of difficulty in walking. Pt seen for [facility] PT re-evaluation following hospitalization. Pt would benefit from resuming skilled [facility] PT for gait/mobility training with walker, balance/endurance training, ther ex, HEP and pt/caregiver education. [facility] therapy may check oxygen saturation level prn during therapy visits with MD notification if SpO2 maintains below 90%. Pt is aware of revised plan of care, visit schedule, and goals and is agreeable to resuming [facility] PT. Pt was admitted to [facility] on 10/14/24 and transferred to [facility] the following day - she was diagnosed with a CHF exacerbation. She received 2 units of blood while inpatient and was also diagnosed with a UTI and pneumonia. She returned home on 10/20/24 with orders for HHC to resume and new O2 at 2L continuously and a gonzalez catheter. She has had 1 fall since coming home. Pt is on a fluid restriction. PMH : seizures, CHF, diabetes, PVD, a-fib, PE, CKD, CAD, OA, CVA, L femur fracture. [facility] PT referral initially received for diagnosis of difficulty in walking. Pt seen for [facility] PT re-evaluation following hospitalization. Pt would benefit from resuming skilled [facility] PT for gait/mobility training with walker, balance/endurance training, ther ex, HEP and pt/caregiver education. [facility] therapy may check oxygen saturation level prn during therapy visits with MD notification if SpO2 maintains below 90%. Pt is aware of revised plan of care, visit schedule, and goals and is agreeable to resuming [facility] PT. Pt was in [facility] on 09/11/24 with c/o abdominal pain, nausea, and vomiting. She was diagnosed with DKA and an NSTEMI. She transferred to [facility] from 09/13/24-2/22/25 due to the need for a higher level of care. She had several complications when inpatient including altered mental status, intubation, encephalopathy, influenza, pneumonia. She declined SNF placement and returned home with orders for [facility]. 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 Pt's son and daughter are currently living with her. Pt's PCP has ordered a wheelchair for her. She is having issues with incontinence due to her water pill being increased. PMH : seizures, CHF, diabetes, PVD, a-fib, PE, CKD, CAD, OA, CVA, L femur fracture. [facility] PT referral received for diagnosis of weakness and/or difficulty in walking. Pt presents with decline in general mobility and functional endurance and overall safety. Pt would benefit from skilled [facility] PT for gait/mobility training with walker, balance/endurance training, ther ex, HEP, and pt education. [facility] therapy may check oxygen saturation level prn [...] reduced fall risk. Problem:PT COMPREHENSIVE Goal:PT Balance Reviewed instructed Patient and Caregiver Brandon on skilled balance training: dynamic standing core strengthening exercises with use of variable UE support. Skilled instruction consisting of: verbal cues for foot placment, upright posture with head up, shoulder back and keep hips in over DAVID. Tolerance to activity: able to return demonstrate proper technique. PT Activity Tolerance Description: Instruct and educate in therapeutic techniques to build activity tolerance. Problem:PT COMPREHENSIVE Goal:PT Activity Tolerance Skilled instruction consisting of proper breathing technique, pacing, recognizing signs of fatigue, proper gait speed and proper posture provided to Patient during ambulation inside home for 150 feet x 2. Tolerance to activity: Modified Lam Rating 2/10 and pulse ox reading remains above 90% on room air. PT Stairs and Home Exit Description: Instruct in proper safety and technique for stair training or home exit as directed in the goal. Problem:PT COMPREHENSIVE Goal:PT Stairs and Home Exit Patient negotiated 6 front entry steps with use of 1 rail with minimum assistance. Skilled instruction consisting of initial instruction in technique, sequencing, hand placement, assist with placement of assistive device 4 w/w at bottom and top of steps. and verbal cues for sequencing, foot placement and safety provided to Patient and Caregiver Brandon. Tolerance to activity: able to return demonstrate proper technique PT Gait Description: Provide gait training for increased safety and efficiency. Progress per patient tolerance and safety. Problem:PT COMPREHENSIVE Goal:PT Gait Patient ambulated with supervision for 150 feet with use of 4 wheel walker on room air over even surfaces with the following gait characteristics slow maria del rosario, decreased heal toe pattering, improved step length/height with no noted shortness of breath noted. O2 sats remained above 90% on room air with no SOB noted. Skilled instruction consisting of pursed lip breathing provided to Patient. Tolerance to activity improved endurance noted PT Transfers Description: Instruct in proper safety and transfer technique. Problem:PT COMPREHENSIVE Goal:PT Transfers Instructed Patient and Caregiver family members on transfer training: sit to/from stand from w/c with use of: upper extremity support. Patient required supervision to perform sit to stand. Skilled instruction consisting of safety cues for balance stabilization upon standing Tolerance to activity: good PT Therapeutic Exercise Description: Instruct on therapeutic exercise. Progress as tolerated. Problem:PT COMPREHENSIVE Goal:PT Strength Therapeutic exercise instruction this date provided patient with green Thera band and instruction in standing core strengthen/stabilizati on standing exercises. resistive rowing, straight arm shoulder extension both with green thara band anchored at door knob. straight arm shoulder flexion with thara band anchored on leg of bed. Sitting trunk rotation exercises with forward punch outs, across body punch outs, upward rows starting with arms at feet with full trunk flexion and bringing hands up to chest with trunk extension and modified siting D1 and d2 PNF pattern movements. Activates performed to improve core strength and stabilization during walking and standing activities. Patient was also instructed in forward/posterior pelvic tilt in siting and standing with 3 sec hold each direction. Noted improved pivalic mobility and patient is able to hold pelvis in correct positions during exercises with less tactile cues. Skills instructions consisting of verbal cues for proper pelvic alinement and core stabilization preformed t/o activities for strengthening. Provided to Patient and Caregiver Brandon. Tolerance to activity: able to return demonstrate proper technique 100% with verbal/tactile cues required 80 % of activity PT HEP Progression Description: Instruct on home exercise program. Progress as tolerated. Problem:PT COMPREHENSIVE Goal:PT HEP Home Exercise Program issued to Patient and Caregiver Brandon for sititng and standidng core strengthing exercises and stabilization exercises utilizing green theraband and 1# UE weight for resistance.. Response returned demonstration of all activites correctly. Brandon verbalized he would have to provide Balance stabilization asssit with standidng exercises. documented in this encounter Care Teams Grazing Examiner Relationship Specialty Start Date End Date Donte Lucas PAC [address] [place] [id number] PCP - General Physician Meeting Facilitator 10/01/24 documented as of this encounter
--- OUTSIDE RECORDS SUMMARY | 2024-12-19 17:29 | XMS_ITS ---
Author Organization [facility] Address [address] [address] Care Team Providers Care Memorial Designer Name Role Phone Clement Ray Primary Care Provider Unavailab mandy Benitez MD, Ugo Unavailable REASON FOR VISIT arterial duplex Encounters Encounter Location Date Provider Diagnosis [facility] [address] [place] [address] 06/28/2023 Ugo Benitez Plan Of Treatment No Information Progress Notes * Karyn MARSHALLOB:1975 ( 47 yo F)Acc No.[id number]:06/28/2023 Patient: Brooke Farrar :1975 A ge:47 Y S ex:Female Address:[address] [place], [address] * true * Date: Generated for Printi ng/Fajonathang/eTransmitting on: 0 12/19/2024 05:28 PM CDT
--- OUTSIDE RECORDS SUMMARY | 2024-12-19 17:29 | XMS_ITS ---
Author Organization [email or web address] Address [address] [place] [address] Care Team Providers Care Channel Layer Name Role Phone Clement Ray Primary [...] 30 Active Vitamin D (Ergocalciferol) 1.25 MG (51422 UT) Oral for 28 Active Atorvastatin Calcium [...] Negative Encounters Encounter Location Date Provider Diagnosis [address] [address] 06/25/2023 Ugo Benitez Plan Of Treatment No Information Progress Notes * Karyn MARSHALLOB:1975 ( 49 yo F)Acc No.[id number]:06/25/2023 Progress note Patient: Brooke FLOR Provider: Hazel Benitez MD :1975 A ge:47 Y S ex:Female Date:06/25/2023 Address:[address] [place], [place] [phone] Pcp:YING Rosa Subjective: * Chief Complaints: * * Medical History: H eart Cath, Blood Clots, Insomnia, Anxiety, High Cholesterol, Diabetes 2. * Surgical History: b roken femur 03/27/2021, uterous removal 1999, unsuccessful tuball , tonsils 1979, left big toe amputation 2019, eye surgeries . * Hospitalization/Major Diagno stic Procedure[facility], [place] , [place] [facility], [facility] 2019. * Family History: M other: , [...] , Taking Vitamin D (Ergocalciferol) 1.25 MG (07173 UT) Capsule Oral , Taking Atorvastatin Calcium [...] signature of Gary Benitez MD, MD on 12/19/2024 at 05:28 PM CDT Sign off status: Pending * Provider: Hazel Benitez MD Date: 1 08/25/2022 Generated for Bret garza/Irineo/J Carlos on: 0 12/19/2024 05:28 PM CDT
--- OUTSIDE RECORDS SUMMARY | 2024-12-19 17:29 | XMS_ITS | Patient Health Record ---
Author Organization [facility] Address [address] [place] [address] [place] [address] Care Team Providers Care Display Screen Fabricator Name Role Phone Dr Arnoldo Gary Primary Care Provider Unavailab Alexi Gutierrez Unavailable [phone] REASON FOR REFERRAL No Information PLAN OF TREATMENT No Information Insurance Providers Payer Name Payer Address Payer Phone Subscriber Number Group Number Insured Name Patient Relationship to Insured Coverage Start Date Coverage End Date Home [facility] Health Plan [address] [place] [phone] [id number] Brooke Garcia Self - patient is the insured 2
--- OUTSIDE RECORDS SUMMARY | 2024-12-19 17:29 | XMS_ITS | Clinical Summary ---
Author Organization [facility] Address [address] [place] [address] Phone Care Team Providers Care Communication Center Coordinator Name Role Phone Donte Lucas [facility] Primary Care Provider [phone] Allergies Active Allergy Reactions Criticality Noted Date [...] Response Take 40 mg by mouth daily. [id number] Active midodrine (PROAMATINE) 2.5 MG Tablet Take 2.5 mg by mouth 3 times daily. [id number] Active levoFLOXacin (LEVAQUIN) 500 MG Tablet Take 500 mg by mouth daily. 12/09/19 25 025 Encounters Date Type Department Care Team Description 12/19/2024 9:00 AM CDT Home Care Visit [facility] [address] [place] [address] Elisa Pollack, KELLY PT - HOME VISIT 12/19/2024 Travel 12/15/2024 12:30 PM CDT Home Care Visit [address] [address] Brooke Burt, MELANIE OT - HOME VISIT 2024 5:30 PM CDT Home Care Visit [address] [address] Elisa Pollack, CONDENSER WINDER PT - HOME VISIT 2024 9:30 AM CDT Home Care Visit [address] [address] Mai Bass, RN SN - HOME VISIT 2024 Travel 12/13/2024 2:30 PM CDT Home Care Visit [address] [address] Elisa Pollack, CONDENSER WINDER PT - HOME VISIT 12/13/2024 11:00 AM CDT Home Care Visit [address] [address] Brooke Burt, MELANIE OT - HOME VISIT 12/13/2024 Home Care Visit [address] [address] Brooke Burt, MELANIE CASE COMMUNICATION 12/09/2024 Travel 12/08/2024 10:00 AM CDT Home Care Visit [address] [address] Brooke Burt, FRENCH WEAVER OT - HOME VISIT 12/08/2024 Home Care Visit [address] [address] Brooke Burt, MELANIE TELEPHONE ENCOUNTER 12/07/2024 11:00 AM CDT Home Care Visit [address] [address] Mai Bass, RN SN - HOME VISIT 12/06/2024 12:00 PM CDT Home Care Visit [address] [address] Maggie Murguia, PT PT - INITIAL EVALUATION 12/06/2024 12:00 PM CDT Home Care Visit [address] [address] Kathrin Mcmullen OT OT - INITIAL EVALUATION 12/04/2024 Plan of Care Documentation [address] [address] 12/02/2024 11:00 AM CDT Home Care Visit [address] [address] Brooke Burt, MELANIE OT - HOME VISIT 12/02/2024 9:00 AM CDT Home Care Visit [address] [address] Mai Bass, RN SN - OASIS RECERTIFICATION 11/30/2024 12:00 PM CDT Home Care Visit [address] [address] Elisa Pollack, CONDENSER WINDER PT - HOME VISIT 11/30/2024 11:00 AM CDT Home Care Visit [address] [address] Brooke Burt, MELANIE OT - HOME VISIT 11/29/2024 12:00 PM CDT Home Care Visit [address] [address] Elisa Pollack, CONDENSER WINDER PT - HOME VISIT 11/29/2024 12:00 PM CDT Home Care Visit [address] [address] Mai Bass, RN SN - PRIORITY VISIT 11/29/2024 Travel 11/25/2024 10:30 AM CDT Home Care Visit [address] [address] Brooke Burt, MELANIE OT - HOME VISIT 11/23/2024 2:30 PM CDT Home Care Visit [address] [address] Mai Bass, RN SN - PRIORITY VISIT 11/23/2024 11:00 AM CDT Home Care Visit [address] [address] Elisa Pollack, CONDENSER WINDER PT - HOME VISIT 11/22/2024 12:00 PM CDT Home Care Visit [address] [address] Brooke Burt, FRENCH WEAVER OT - HOME VISIT 11/21/2024 1:30 PM CDT Home Care Visit [address] [address] Mai Bass, RN SN - PRIORITY VISIT 11/21/2024 1:00 PM CDT Home Care Visit [address] [address] Elisa Pollack, CONDENSER WINDER PT - HOME VISIT 11/21/2024 Travel 11/17/2024 11:15 AM CDT Home Care Visit [address] [address] Kathrin Mcmullen OT OT - INITIAL EVALUATION 11/16/2024 1:00 PM CDT Home Care Visit [address] [address] Elisa Pollack, CONDENSER WINDER PT - HOME VISIT 11/14/2024 11:00 AM CDT Home Care Visit [address] [address] Maggie Murguia, PT PT - INITIAL EVALUATION 11/14/2024 9:00 AM CDT Home Care Visit [address] [address] Mai Bass, RN SN - PRIORITY VISIT 11/11/2024 9:00 AM CDT Home Care Visit [address] [address] Mai Bass, RN SN - OASIS RESUMPTION OF CARE Discharge Disposition: Discharged to home or Selfcare 11/11/2024 Plan of Care Documentation [address] [address] 11/08/[address] [address] Urszula Sparks, RN HOME HEALTH 11/03/2024 Home Care Visit [address] [address] Nancy Bradley, RN SN - OASIS TRANSFER W/OUT DC 10/28/2024 9:30 AM CDT Home Care Visit [address] [address] Mai Bass, RN SN - PRIORITY VISIT 10/27/2024 10:00 AM CDT Home Care Visit [address] [address] Elisa Pollack, CONDENSER WINDER PT - HOME VISIT 10/25/2024 2:30 PM CDT Home Care Visit [address] [address] Deepika Ely, STABLE CLEANER-SPEECH LANGUAGE PATHOLOGIST STABLE CLEANER - INITIAL EVALUATION 10/25/2024 1:30 PM CDT Home Care Visit [address] [address] Maggie Murguia, PT PT - INITIAL EVALUATION 10/25/2024 12:30 PM CDT Home Care Visit [address] [address] Kathrin Mcmullen OT OT - INITIAL EVALUATION 10/24/2024 2:00 AM CDT Home Care Visit [address] [address] Mai Bass, RN SN - OASIS RESUMPTION OF CARE 10/24/2024 Plan of Care Documentation [address] [address] 10/24/2024 Telephone [facility] [place] [facility] [id number] Kami Mccoy, RN 10/23/2024 [facility]phone [facility] [phone] Deepika Keith, RN Appointment 10/21/2024 Telephone [facility] [phone] Ariana Callahan, RN visits 10/19/2024 [place] [address] Mehnaz Hilario, RN SN - OASIS TRANSFER W/OUT DC 10/14/2024 11:00 AM PRE SCHOOL TEACHER [facility] [place] [facility] 1400[facility] Brooke Burt MELANIE OT - HOME VISIT 10/14/2024 11:00 AM PRE SCHOOL TEACHER [place] [facility] [place] [facility] 1400702 Kathleen Clement, CONDENSER WINDER PT - HOME VISIT 10/13/2024 1:30 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 TEACHER [place] Care [place] [facility] 1400702 Mai Bass, RN SN - PRIORITY VISIT 10/13/2024 10:00 AM PRE SCHOOL TEACHER [place] [address] Mercedes Pham, FRUIT SORTER FRUIT SORTER - INITIAL EVALUATION 10/12/2024 12:30 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 TEACHER Home Care Visit [address] [address] Saima Busby, CONDENSER WINDER PT - HOME VISIT 10/11/2024 11:45 AM PRE SCHOOL TEACHER Home Care Visit [address] [address] Kathrin Mcmullen OT OT - INITIAL EVALUATION 10/11/2024 8:00 AM PRE SCHOOL TEACHER Home Care Visit [address] [address] Mai Bass, RN SN - PRIORITY VISIT 10/11/2024 Home Care Visit [address] [address] Mai Bass, RN TELEPHONE ENCOUNTER 10/11/2024 Home Care Visit [address] [address] Mai Bass, RN TELEPHONE ENCOUNTER 10/07/2024 2:00 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 TEACHER Home Care Visit [address] [address] Maggie Murguia, PT PT - INITIAL EVALUATION 10/06/2024 10:00 AM PRE SCHOOL TEACHER Home Care Visit [address] [address] Mai Bass, RN SN - OASIS START OF CARE 10/06/2024 Plan of Care Documentation [address] [address] from Last 3 Months Social History Tobacco Use Types Packs/Day Years Used Date Smoking Tobacco: Never Assessed Comments Unknown Sex and Gender Information Value Date Recorded Sex Assigned at Not on file Legal Sex Female 1:58 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 Gender Identity Not on file Sexual Orientation Not on file Last Filed Vital Signs Vital Sign Reading Time Taken Comments Blood Pressure 98/68 12/15/2024 12:47 PM CDT Pulse 99 12/15/2024 12:47 PM CDT Temperature 36 C (96.8 F) 12/19/2024 9:11 AM CDT Respiratory Rate 18 12/19/2024 9:11 AM CDT Oxygen Saturation 97% 12/15/2024 12:47 PM CDT Inhaled Oxygen Concentration - - Weight 96.2 kg (212 lb) 12/15/2024 12:47 PM CDT Height 165.1 cm (5' 5 ) 12/06/2024 12:17 PM CDT Body Mass Index 35.28 12/06/2024 12:17 PM CDT Plan of Treatment Upcoming Encounters Date Type Department Care Team (Late st Contact Info) Description 12/20/2024 1:00 AM CD[facility] [address] [place] [address] Mai Bass, RN [place] 12/20/2024 2:00 AM CDT Home Care Visit [address] [address] Brooke Burt, FRENCH WEAVER [place] 12/21/2024 10:30 AM CDT Home Care Visit [address] [address] Elisa Pollack, CONDENSER WINDER [place] 12/22/2024 1:00 AM CDT Home Care Visit [address] [address] Brooke Burt, MELANIE [place] 12/26/2024 1:00 AM CDT Home Care Visit [address] [address] Elisa Pollack, CONDENSER WINDER [place] 12/27/2024 1:00 AM CDT Home Care Visit [address] [address] Mai Bass, RN [place] 12/27/2024 2:00 AM CDT Home Care Visit [address] [address] Brooke Burt, FRENCH WEAVER [place] 12/28/2024 1:00 AM CDT Home Care Visit [address] [address] Maggie Murguia, PT 12/29/2024 1:00 AM CDT Home Care Visit [address] [address] Ktahrin Mcmullen OT 01/03/2025 1:00 AM CDT Home Care Visit [address] [address] Mai Bass, RN [place] 01/10/2025 1:00 AM CDT Home Care Visit [address] [address] Mai Bass RN [place] 01/17/2025 1:00 AM CDT Home Care Visit [facility] [address] [place] [address] Mai Bass RN [place] 01/24/2025 1:00 AM CDT Home Care Visit [address] [address] Mai Bass RN [place] 01/31/2025 1:00 AM CDT Appointment [address] [address] Mai Bass RN [place] Insurance [place]ICA[place] MEDICARE C [employer] Advance Directives * Full Code (Latest Code Status on File) Date Activated Date Inactivated Comments 10/06/2024 10:06 PM Care Teams Communication Center Coordinator Relationship Specialty Start Date End Date Donte Lucas PAC [address] [place] [address] PCP - General Physician Trial Lawyer 10/01/24
--- OUTSIDE RECORDS SUMMARY | 2024-12-19 17:30 | XMS_ITS | Continuity of Care Document ---
Author Organization [facility] Address [id number] [place] [address] [address] [place] [address] Phone Care Team Providers Care Scale Agent Name Role Phone Puneet CUNNINGHAM MD, Josh Unavailable Unavailab le Procedures Procedure Date POSTOP FOLLOW-UP VISIT CATARACT SURG W/IOL, 1 STAGE CATARACT SURG W/IOL, 1 STAGE OFFICE/OUTPATIENT VISIT, [facility] Advance Directives Directive Yes / No Effective Date File Name No Information Encounters Encounter Description Practice Location Reason(s) For Visit Diagnoses Date Provider Providers Copied on Encounter [facility], [address] [facility] [address], [place], [place], [id number], tel:[phone] [facility] No Information 4 Puneet Moreno. [address], [address], [place], [place], [id number] , [place]. tel:[phone] Referring Provider: Josh Teixeira MD P, [address], [place], [address] . tel:[phone] [facility], [address] [facility], [place], [place], [id number], [place] tel:[phone] [facility] [place] No Information 4 Puneet Moreno. [address], [address], [place], [place], [address] , [place]. [phone] Referring Provider: Josh Watkins, [address], [place], [address] . tel:[phone] [facility], [address] [facility] [address], [place], [place], [id number], tel:[phone] [facility] No Information 3 Puneet Moreno. [address], [address], [place], [place], [address] , [place]. tel:[phone] Referring Provider: Josh Teixeira MD P, [address], [place], [address] . tel:[phone] OFFICE/OUTPAT IENT VISIT, [facility], [address] [facility] [address], [place], [place], [id number], tel:[phone] [facility] No Information 3 Puneet Moreno. [address], [address], [place], [place], [address] , [place]. tel:[phone] Referring Provider: Josh Watkins, [address], [place], [address] . tel:[phone] Family History Family Member Type Diagnosis Age [...]
[2024-12-19 17:35] LABS: Basophils Absolute Auto 0.04 K/mm3 (0.00-0.10); Basophils Percent Auto 0.6 % (0.0-1.0); Eosinophils Absolute Auto 0.22 K/mm3 (0.02-0.50); Eosinophils Percent Auto 3.5 % (1.0-6.0); Hematocrit 35.2 % (35.0-49.0); Hemoglobin 10.6 g/dL (12.0-15.0); Immature Granulocyte Absolute 0.03 K/mm3 (0.00-0.00); Immature Granulocyte Percent A 0.5 % (0.0-0.0); Lymphocytes Absolute Auto 1.33 K/mm3 (1.10-4.50); Lymphocytes Percent Auto 20.9 % (18.0-42.0); Mean Corpuscular HGB Conc 30.1 g/dL (32-36); Mean Corpuscular Hemoglobin 27.2 pg (27.0-31.0); Mean Corpuscular Volume 90.5 fL (78.0-102.0); Mean Platelet Volume 10.6 fl (9.2-11.8); Monocytes Absolute Auto 0.48 K/mm3 (0.10-0.90); Monocytes Percent Auto 7.6 % (2.0-11.0); Neutrophils Absolute Auto 4.25 K/mm3 (1.70-7.20); Neutrophils Percent Auto 66.9 % (50.0-70.0); Platelet Count Result 209 K/mm3 (150-420); Red Blood Count 3.89 M/mm3 (4.20-5.40); Red Cell Distribution Width 15.4 % (11.6-14.4); White Blood Count 6.4 K/mm3 (4.8-10.8)
[2024-12-19 17:39] LABS: Alanine Aminotransferase 32 U/L (6-35); Albumin Level 3.6 g/dL (3.5-5.1); Alkaline Phosphatase 231 U/L (38-126); Anion Gap 8 mmol/L (4-12); Aspartate Amino Transferase 45 U/L (14-36); Bilirubin,Total 0.4 mg/dL (0.2-1.3); Blood Urea Nitrogen 54 mg/dL (7-17); Calcium 8.8 mg/dL (8.4-10.2); Carbon Dioxide 28 mmol/L (22-30); Chloride 101 mmol/L (98-107); Estimated Glomerular Filt Rate 40; Glucose 283 mg/dL (65-110); Osmolality Calculated 308 mOsm/kg (285-295); Potassium 4.4 mmol/L (3.4-5.0); Sodium 137 mmol/L (137-145); Total Protein 7.3 g/dL (6.3-8.2)
[2024-12-19 17:43] LABS: Partial Thromboplastin Time 30.4 Sec (23.9-30.70); Prothrombin Time 10.9 Seconds (9.50-12.1)
[2024-12-19 18:01] LABS: Base Excess ABG 1.4 mmol/L (0-2); HCO3 ABG 26.2 mmol/L (23-29); Oxygen Saturation ABG 91.9 % (95-97); Oxyhemoglobin 87.3 % (94-100); PCO2 ABG 42.4 mmHg (35-45); PO2 ABG 64.6 mmHg (80-90); pH ABG 7.41 (7.35-7.45)
[2024-12-19 18:02] LABS: Device ROOM AIR; Modified Allen's Test Pass; Site Drawn LEFT RADIAL
[2024-12-19 18:09] LABS: NT Pro B Type Natriuretic Pept 2810 pg/mL (19.9-100)
[2024-12-19 18:11] LABS: Troponin I 0.013 ng/mL (0.000-0.034)
--- NOTE | 2024-12-19 18:44 | PC.NURSE ---
PATIENT BEING ASSISTED UP TO BEDSIDE COMMODE BY MIKE JOSHI. SKID PROOF SOCKS PLACED.
--- NOTE | 2024-12-19 19:15 | PC.NURSE ---
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 patient resting on stretcher with visitor at bedside. call light within reach.
--- NOTE | 2024-12-19 19:21 | PC.NURSE ---
REPORT GIVEN TO [facility]
--- NOTE | 2024-12-19 19:39 | PC.NURSE ---
Dr. Jasso at bedside for patient update of results and plan of care.
== END 2024-12-19 19:54 | disposition home or self-care (01) ==
PROVIDERS: Emergency Provider Emergency Medicine; PCP Physician Assistant
DX: I50.9 Heart failure, unspecified (principal); E11.9 Type 2 diabetes mellitus without complications; F17.210 Nicotine dependence, cigarettes, uncomplicated; Z86.73 Personal history of transient ischemic attack (TIA), and cerebral infarction without residual deficits
CPT/HCPCS: 36415; 36600; 71045; 80053; 82805; 83880; 84484; 85025; 85610; 85730; 93005; 99284

== ENCOUNTER 2024-12-29 08:06 | Outpatient (CLI) | payer MEDICARE, MEDICAID, SELFPAY ==
--- NOTE | ~2024-12-29 | US_ITS ---
US pelvic limited 12/29/2024 08:52 Indication: Urinary incontinence Procedure: High-resolution Limited ultrasound of the pelvis using transabdominal technique Comparison: No prior studies for comparison. Findings: There is a small amount of debris dependently in the bladder. Bladder wall is unremarkable. Prevoid volume 656 cc. Post void volume 22 cc. No focal bladder wall mass or thickening. Impression: 1: Small post void residual. Normal amount of dependent debris in the bladder lumen which may represe nt proteinaceous material or can be associated with infection in the appropriate clinical setting. Reviewed, dictated and finalized at location [] Impression: 1: Small post void residual. Normal amount of dependent debris in the bladder l umen which may represent proteinaceous material or can be associated with infec tion in the appropriate clinical setting.
--- NOTE | ~2024-12-29 | US_ITS ---
EXAMINATION: US carotid duplex BI DATE: 12/29/2024 08:53 INDICATION: TIA TECHNIQUE: Grayscale, color Doppler, and pulsed Doppler images of the cervical carotid arteries were obtained. The degree of vessel stenosis is placed in one of the following categories: normal, <50%, 5 0-69%, >=70% but less than near-occlusion, near-occlusion, or total occlusion. Note that percent sten osis relative to normal distal artery lumen diameter is indirectly measured from velocity measurement s as described by John, et al. Radiology 2003; 229:340-346. Notes: Normal: Peak systolic velocity <125 centimeters/sec and no plaque <50%. Peak systolic velocity <125 ( EDV <40; ICA/CCA PSV ratio <2.0; used these factors only a tandem lesions or low cardiac output or co ntralateral disease) 50-69 %: PSV 125-230 (EDV 40-100; ratio 2-4) >= 70% but less than near occlusion: PSV greater than 230 (EDV > 100; ratio> 4.0) Near Occlusion: PSV that is variable; markedly narrowed lumen Occlusion: Absent flow on color/spectral Doppler and no lumen on kc scale. COMPARISON: None. FINDINGS: RIGHT: The right common carotid artery (CCA) peak systolic velocity (PSV) is 98 cm/s. The right internal car otid artery (ICA) PSV is 68 cm/s. The right ICA end-diastolic velocity (EDV) is 31 cm/s. The right IC A/CCA PSV ratio is 0.7. The external carotid artery (ECA) PSV is 122 cm/s. There is antegrade flow in the right vertebral artery. LEFT: The left CCA PSV is 70 cm/s. The left ICA PSV is 80 cm/s. The left ICA EDV is 38 cm/s. The left ICA/C CA PSV ratio is 1.1. The ECA PSV is 198 cm/s. There is antegrade flow in the left vertebral artery. IMPRESSION: 1. Less than 50% stenosis in the right internal carotid artery by sonographic criteria. 2. Less than 50% stenosis in the left internal carotid artery by sonographic criteria. Reviewed, dictated and finalized at location [] IMPRESSION: 1. Less than 50% stenosis in the right internal carotid artery by sonographic lady ash. 2. Less than 50% stenosis in the left internal carotid artery by sonographic nick saravia.
--- OUTSIDE RECORDS SUMMARY | 2024-12-29 08:11 | XMS_ITS | Encounter Summary ---
Author Organization [facility] Address [address] [facility] [facility] [place] [address] Phone Care Team Providers Care School Traffic Supervisor Name Role Phone Donte Lucas MURIEL Primary Care Provider [phone] Reason for Visit * Auth/Cert (Routine) Specialty Diagnoses / Procedures Referred By Jadyn benitez Referred To Contact Referral ID Status Reason Start Date Expiration Date Visits Re quested Visits Authorized [id number] Encounter Details Date Type Department Care Team (Late Contact Info) Description 12/28/2024 1:00 PM CDT Home Care Visit [address] [address] Maggie Murguia, PT PT - DISCIPLINE DISCHARGE Social History Tobacco Use Types Packs/Day Years Used Date Smoking Tobacco: Never Assessed Comments Unknown Sex and Gender Information Value Date Recorded Sex Assigned at Not on file 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 Gender Identity Not on file Sexual Orientation Not on file documented as of this encounter Plan of Treatment Upcoming Encounters Date Type Department Care Team ([facility] Contact Info) Description 12/29/2024 12:00 PM CDT [facility] [address] [place] [address] Kathrin Mcmullen OT 01/03/2025 1:00 AM CDT Home Care Visit [address] [address] Mai Bass, PADMA [place] 01/10/2025 1:00 AM CDT [facility] [address] [place] [address] Mai Bass RN [place] 01/17/2025 1:00 AM CDT [facility] [address] [place] [address] Mai Bass RN [place] 01/24/2025 1:00 AM CDT [facility] [address] [place] [address] Mai Bass RN [place] 01/31/2025 1:00 AM CDT [facility] [address] [place] [address] Mai Bass RN [place] documented as of this encounter Visit Diagnoses Not on filedocumented in this encounter Home Health Visit - Care Plan Visit Details Visit Type -PT - DISCIPLINE DISCHARGE Discipline -Physical Therapy Problems Problem Description Start Date Status Goals Interve ntions PT COMPREHENSIVE Disciplines: Physical Therapy 10/07/2024 Resolved on 12/28/2024 8 goals linked to scheduled/documented interventions Goals Goal Associated Problem Outcome Goal Met? Visit Notes PT Balance Description: Manager Spa Goal: Patient will show improved dynamic standing balance as demonstrated by improved Tinetti score from to in order to lower risk for falls and Improve functional mobility. To be met by 12-30-24. PT COMPREHENSIVE Therapy: Goal met Yes PT Caregiver Assist/Safety Description: shelter Goal: Caregiver will be able to safely demonstrate patient assistance with home exercise program, bed mobility, transfers, ambulation and stair negotiation in order to safey assist pt when PT staff is not present. To be met by 12-30-24. PT COMPREHENSIVE Therapy: Goal met Yes PT Activity Tolerance Description: shelter Goal: Patient to demonstrate increased activity tolerance with gait distance of 125 feet as evidenced by a Modified Lam perceived exertion rating of 1/10 or less to facilitate household mobility . To be met by 12-30-24. PT COMPREHENSIVE Therapy: Goal not met No PT Stairs and Home Exit Description: Manager Spa Goal: Patient will require CGA on entry steps or ramp with use of a wheeled walker while maintaining ordered precautions to allow for ability to enter/exit home safely . To be met by 12-30-24. PT COMPREHENSIVE Therapy: Goal not met No PT Gait Description: Manager Spa Goal: Patient will ambulate with independence x 200 feet with use of 4 wheel walker, over even surfaces with the following gait characteristics no LOB in order to safely ambulate into [employer] to obtain groceries. To be met by 12-30-24. PT COMPREHENSIVE Therapy: Goal not met No PT Transfers Description: Manager Spa Goal: Patient will perform sit<>stand transfers with independence with use of a wheeled walker. To be met by 12-30-24. PT COMPREHENSIVE Therapy: Goal met Yes PT Strength Description: Manager Spa Goal: Patient will show improved bilateral lower extremity hip strength as demonstrated by improved manual muscle test score to at least 3+/5 . To be met by 12-30-24. PT COMPREHENSIVE Therapy: Goal not met No PT HEP Description: Manager Spa Goal: Patient and/or caregiver will independently with final HEP of strengthening, balance training, conditioning and core strengthening in order to continue making strength gains , improving balance and improving activity tolerance after discharge from home care. To be met by 12-30-24. PT COMPREHENSIVE Therapy: Goal met Yes documented in this encounter Care Teams School Traffic Supervisor Relationship Specialty Start Date End Date Donte Lucas, PAC [address] [place] [address] PCP - General Physician Director Call Center Sales 10/01/24 documented as of this encounter
--- OUTSIDE RECORDS SUMMARY | 2024-12-29 08:11 | XMS_ITS | Encounter Summary ---
Author Organization [facility] Address [address] [place] [address] Phone Care Team Providers Care Bail Bondsman Name Role Phone Donte Lucas Primary Care Provider [phone] Reason for Visit * Reason Onset Date Comments Outpatient PT Referral 12/28/2024 Encounter Details Date Type Department Care Team ([facility] Contact Info) Description 12/28/2024 Telephone [facility] [address] [place] [address] Marilyn Pa RN [place] Outpatient PT Referral Social History Tobacco Use Types Packs/Day Years Used Date Smoking Tobacco: Never Assessed Comments Unknown Sex and Gender Information Value Date Recorded Sex Assigned at Not on file 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 Received call from Camille at Dr. Lucas's office reporting she received message from PT requesting outpt referral. Camille will take care of ordering it. documented in this encounter Plan of Treatment Upcoming Encounters Date Type Department Care Team ([facility] Contact Info) Description 12/29/2024 12:00 PM CDT [facility] [address] [place] [address] Kathrin Mcmullen OT 01/03/2025 1:00 AM CDT [facility] [address] [place] [address] Mai Bass, RN [place] 01/10/2025 1:00 AM CDT Home Care Visit [address] [address] Mai Bass, PADMA [place] 01/17/2025 1:00 AM CDT Home Care Visit [address] [address] Mai Bass, RN [place] 01/24/2025 1:00 AM CDT Home Care Visit [address] [address] Mai Bass, PADMA [place] 01/31/2025 1:00 AM CDT Appointment [address] [address] Mai Bsas, RN [place] documented as of this encounter Visit Diagnoses Not on filedocumented in this encounter Care Teams Bail Bondsman Relationship Specialty Start Date End Date Donte Lucas, PAC [address] [place] [address] PCP - General Physician Template Clerk 10/01/24 documented as of this encounter
--- OUTSIDE RECORDS SUMMARY | 2024-12-29 08:11 | XMS_ITS | Clinical Summary ---
Author Organization [facility] Address [address] [place] [address] Care Team Providers Care Systems Accountant Name Role Phone Clement Pinto APRN-FERMENTOLOGIST Primary Care Provider [phone] Source Comments [facility],non-owned Affiliates and Associated Physician Practices is amultiple site organization consisting of ambulatory clinics and hospital sitesin [place], [place], [place] and [place]. This disclosure is being madepursuant to the Care Everywhere program and may not contain all information available regarding this patient. Last updated [email or web address] [facility] Allergies Active Allergy Reactions Criticality Noted Date [...] by mouth once daily Active HYDROcodone-pankaj taminophen ([place]) 5-325 MG tabletIndicatio ns:Post-operati ve state Take [...] on file Legal Sex Female 10:39 AM TRANSIT SPECIALIST Gender Identity Not on file Sexual [...] patient's age to complete this topic [place] [address] [place] [address] [facility] MEDICAID [place] Care Teams Systems Accountant Relationship Specialty Start Date End Date Clement Pinto APRN-JANENE [address] [facility] [place] [address] PCP - General Nurse Practitioner Family 05/13/23
--- OUTSIDE RECORDS SUMMARY | 2024-12-29 08:11 | XMS_ITS | Encounter Summary ---
Author Organization [facility] Address [address] [facility] [place] [address] Phone Care Team Providers Care Major Donor Coordinator Name Role Phone Donte Lucas [facility] Primary Care Provider [phone] Encounter Details Date Type Department Care Team (Late Contact Info) Description 12/27/2024 Lab Requisition [facility] [address] [place] [address] Lorenza Inman MD [address] [place] [id number] Provider, Not On File [place] Chronic combined systolic (congestive) and diastolic (congestive) heart failure; Type 2 diabetes mellitus with diabetic chronic kidney disease (HCC) Social History Tobacco Use Types Packs/Day Years Used Date Smoking Tobacco: Never Assessed Comments Unknown Sex and Gender Information Value Date Recorded Sex Assigned at Not on file 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 Gender Identity Not on file Sexual Orientation Not on file documented as of this encounter Plan of Treatment Upcoming Encounters Date Type Department Care Team (Late Contact Info) Description 12/29/2024 12:00 PM CDT Home Care Visit [address] [address] Kathrin Mcmullen OT 01/03/2025 1:00 AM CDT Home Care Visit [address] [address] Mai Bass RN [place] 01/10/2025 1:00 AM CDT [facility] [address] [place] [address] Mai Bass RN [place] 01/17/2025 1:00 AM CDT [facility] [address] [place] [address] Mai Bass RN [place] 01/24/2025 1:00 AM CDT [facility] [address] [place] [address] Mai Bass RN [place] 01/31/2025 1:00 AM CDT [facility] [address] [place] [address] Mai Bass, [place] documented as of this encounter Procedures Procedure Name Priority Date/Time Associated Diagnosis Comments UR MICROALBUMIN/CREATI NINE RATIO RANDOM Routine 12/27/2024 9:45 AM CDT Chronic combined systolic (congestive) and diastolic (congestive) heart failure Type 2 diabetes mellitus with diabetic chronic kidney disease (HCC) documented in this encounter Results * UR MICROALBUMIN/CREATININE RATIO RANDOM (12/27/2024 9:45 AM CDT) RAN UR MICROALBUMIN 1.59 mg/dL 12/27/2024 12:06 PM CDT [facility] Comment:No reference range h as been established. Consider Clinical Correlation. CREATININE URINE 58.7 mg/dL 12/28/19 12:06 PM CDT [facility] Comment:No reference range h as been established. Consider Clinical Correlation. ALB/CREAT RATIO 27 0 - 30 mg/g CRE 12/27/2024 12:06 PM CDT [facility] Urine Non-Phlebotomy Collection / Unknown 12/27/2024 9:45 AM CDT 12/27/2024 11:44 AM CDT us Not On File Provider URINE ORDERABLES Final Resu lt [facility] [facility] [place] [address] documented in this encounter Visit Diagnoses Diagnosis Chronic combined systolic (congestive) and diastolic (congestive) heart failure Type 2 diabetes mellitus with diabetic chronic kidney disease (HCC) Type II or unspecified type diabetes mellitus with renal manifestations, not stated as uncontrolled documented in this encounter Care Teams Major Donor Coordinator Relationship Specialty Start Date End Date Donte Lucas PAC [address] [place] [address] PCP - General Physician Battery Hand 10/01/24 documented as of this encounter
--- OUTSIDE RECORDS SUMMARY | 2024-12-29 08:11 | XMS_ITS | Continuity of Care Document ---
Author Organization [facility] Address [address] [place] [address] Phone Care Team Providers Care Pathology Tech Name Role Phone Unavailable Unavailable Unavailable Allergies, [...] ONCE DAILY - Active FreeStyle Carol 2 Ringgold please issue one reader to monitor constant [...] Date Provider Providers Copied on Encounter [facility], [address] [place] [address], [address], tel:[phone] *[facility] No Information [address] [facility], [address] [place] [address], [address], tel:[phone] *[facility] No Information [address] [facility], [address] [place] [address], [address], tel:[phone] *[facility] Primary Care Body mass index [BMI] 32.0-32.9, adult 3 No Information OFFICE/OUTPA TIENT VISIT, EST [facility], [address] [place] [address], [address], tel:[phone] *[facility] Primary [facility] Diabetes (chief complaint)R efills (chief complaint) Chronic kidney disease, unspecified CKD stageType 2 diabetes mellitus with hyperglycemiaPa in in unspecified joint [address] [facility], [address] [place] [address], [address], [place] tel:[phone] *[facility] Primary Care No Information [address] [facility], [address] [place] [address], [address], [place] tel:[phone] *[facility] Primary [facility] Abnormal complete blood count 3 No Information OFFICE/OUTPA TIENT VISIT, [facility], [address] [place] [address], [address], [place] tel:[phone] *[facility] Surgery clearance (chief complaint) Body mass index [BMI] 29.0-29.9, adultType 2 diabetes mellitus with hyperglycemiaPo lyneuropathyChr onic systolic (congestive) heart failureChronic kidney disease, unspecified CKD stageAt risk for falling [address] [facility], [address] [place] [address], [address], [place] tel:[phone] *[facility] No Information [address] [facility], [address] [place] [address], [address], [place] tel:[phone] *[facility] Polyneuropathy 3 No Information OFFICE/OUTPA TIENT VISIT, [facility], [address] [place] [address], [address], [place] tel:[phone] *[facility] ear pain bilateral (chief complaint)c hronic conditions (chief complaint)e luke (chief complaint)s ore under left breast (chief complaint) Body mass index [BMI] 31.0-31.9, adultCellulitis of breastAcute serous otitis media, bilateralChroni c systolic (congestive) heart failurePolyneur opathyChronic pain of left knee [address] [facility], [address] [place] [address], [address], [place] tel:[phone] *[facility] No Information 3 No Information OFFICE/OUTPA TIENT VISIT, [facility], [address] [place] [address], [address], tel:[phone] *[facility] pain (chief complaint)U TI (chief complaint)c hronic conditions (chief complaint) Pain in unspecified jointChronic kidney disease, unspecified CKD stageType 2 diabetes mellitus with hyperglycemiaBo dy mass index [BMI] 45.0-49.9, adultUTIChronic systolic (congestive) heart failureCardiomy opathy, unspecifiedAt risk for falling [address] [facility], [address] [place] [address], [address], tel:[phone] *[facility] No Information 3 No Information OFFICE/OUTPA TIENT VISIT, [facility], [address] [place] [address], [address], tel:[phone] *[facility] Primary [facility] New Patient (chief [...] guidance, and counseling completed Referral Referred To: [address] [place], [place], [phone] Ordered: Referrals: Oncology. [facility]. Evaluate and treat ordered Referral Ordered: tina -Nephrology (related to Type 2 diabetes mellitus with hyperglycemia) ordered Referral Referred To: tina Ordered: Referrals: Nephrology. tina. Location: [facility]. Evaluate and treat ordered Referral Referred To: manda prince Ordered: Referrals: Endocrinology, Diabetes and Metabolism. [facility]. Evaluate and treat ordered Referral Ordered: [facility] -Neurology (related to Polyneuropathy) ordered Referral [facility]erred [facility]: [facility] Ordered: Referrals: [facility]rology. [facility]. Evaluate and treat ordered Referral Referred To: [facility] [address] [address] [place], [place], [phone] Ordered: Referrals: Orthopedic Surgery. [facility]. Location: [facility]. Evaluate and treat ordered Future Order: Radiol ogy Order US ABDOMEN COMPLETE ([id number]), Ordered on: Ordered Future Order: Lab Order CBC w/AU TO DIFF ([id number]), Ordered on: Ordered Future Order: Lab Order COMPREHE NSIVE METABOLIC PANEL ([id number]), Ordered on: Ordered Future Order: Lab Order GLYCOHEM OGLOBIN (A1c) ([id number]), Ordered on: Ordered Future Order: Lab Order Electroc ardiogram ([id number]), Ordered on: Ordered Future Order: Lab Order LIPID PA KAR ([id number]), Ordered on: Ordered Future Order: Lab Order THYROID STIMULATING HORMONE ([id number]), Ordered on: Ordered Future Order: Lab Order BNP (B-t ype Natriuretic Peptide) ([id number]), Sent on: Sent Future Order: Lab Order COMPREHE NSIVE METABOLIC PANEL ([id number]), Sent on: Sent Future Order: Lab Order CBC w/AU TO DIFF ([id number]), Sent on: Sent Future Order: Lab Order Electroc ardiogram ([id number]), Sent on: Sent Future Order: Radiol ogy Order CHEST 2 VW FRONT & LAT ([id number]), Sent on: Sent Future Order: Radiol ogy Order KNEE, LEFT, (1 OR 2 VIEWS) ([id number]), Ordered on: Ordered History Of Present Illness Encounter Date Complaint History Of Prese nt Illness Refills Patient here zoey payton for med refills. Diabetes Risk factors inc lude age > 50 years. Risk factors excluded are depression, smoking and steroid use. Comorbid conditions include stroke. Surgery clearance Patient here t josué for medical clearance. edema ear pain bilateral sore under left breast chronic conditions UTI Associated sympt oms include fatigue. Pertinent [...]
--- OUTSIDE RECORDS SUMMARY | 2024-12-29 08:11 | XMS_ITS | Encounter Summary ---
Author Organization [facility] Address [address] [facility] [place] [address] Phone Care Team Providers Care Protective Signal Operations Supervisor Name Role Phone Donte Lucas Primary Care Provider [phone] Reason for Visit * Auth/Cert (Routine) Specialty Diagnoses / Procedures Referred By Jadyn benitez Referred To Contact Referral ID Status Reason Start Date Expiration Date Visits Re quested Visits Authorized [id number] Encounter Details Date Type Department Care Team (Late Contact Info) Description 12/26/2024 10:30 AM CDT Home Care Visit [address] [address] lEisa Pollack, PROFESSIONAL EMPLOYER CONSULTANT [place] PT - HOME VISIT Social History Tobacco Use Types Packs/Day Years Used Date Smoking Tobacco: Never Assessed Comments Unknown Sex and Gender Information Value Date Recorded Sex Assigned at Not on file Legal Sex Female 1:58 PM COAL PICKER Gender Identity Not on file Sexual Orientation Not on file documented as of this encounter Last Filed Vital Signs Vital Sign Reading Time Taken Comments Blood Pressure 102/62 12/26/2024 1:38 PM CDT Pulse 90 12/26/2024 1:38 PM CDT Temperature 35.8 C (96.5 F) 12/26/2024 1:38 PM CDT Respiratory Rate 187 12/26/2024 1:38 PM CDT Oxygen Saturation 97% 12/26/2024 1:38 PM CDT Inhaled Oxygen Concentration - - Weight 98.4 kg (217 lb) 12/26/2024 1:38 PM CDT Height - - Body Mass Index 36.11 12/06/2024 12:17 PM CDT documented in this encounter Plan of Treatment Upcoming Encounters Date Type Department Care Team (Late Contact Info) Description 12/29/2024 12:00 PM CDT Home Care Visit [address] [address] Kathrin Mcmullen OT 01/03/2025 1:00 AM CDT Home Care Visit [address] [address] Mai Bass, [place] 01/10/2025 1:00 AM CDT Home Care Visit [address] [address] Mai Bass, [place] 01/17/2025 1:00 AM CDT Home Care Visit [address] [address] Mai Bass, [place] 01/24/2025 1:00 AM CDT Home Care Visit [address] [address] Mai Bass, [place] 01/31/2025 1:00 AM CDT Appointment [address] [address] Mai Bass, RN [place] documented as of [...] PT COMPREHENSIVE Disciplines: Physical Therapy 10/07/2024 Active 8 goals linked to scheduled/document ed interventions 8 goal interventions scheduled/documen monty in this visit Goals Goal Associated Problem Outcome Goal Met? Visit Notes Physical Therapy Evaluation Description: After assessing the patient and discussing the patient's goals the following were identified: Patient centered long-term goal: return to PLOF. Target Date: by 12-30-24 (date) PHYSICAL THERAPY EVALUATION (O) No PT Balance Description: Senior Care Goal: Patient will show improved dynamic standing balance as demonstrated by improved Tinetti score from 16 to in order to lower risk for falls and Improve functional mobility. To be met by 12-30-24. PT COMPREHENSIVE No PT Caregiver Assist/Safety Description: assisted Goal: Caregiver will be able to safely demonstrate patient assistance with home exercise program, bed mobility, transfers, ambulation and stair negotiation in order to safey assist pt when PT staff is not present. To be met by 12-30-24. PT COMPREHENSIVE No PT Activity Tolerance Description: assisted Goal: Patient to demonstrate increased activity tolerance with gait distance of 125 feet as evidenced by a Modified Lam perceived exertion rating of 1/10 or less to facilitate household mobility . To be met by 12-30-24. PT COMPREHENSIVE No PT Stairs and Home Exit Description: Paintings Conservator Goal: Patient will require CGA on entry steps or ramp with use of a wheeled walker while maintaining ordered precautions to allow for ability to enter/exit home safely . To be met by 12-30-24. PT COMPREHENSIVE No PT Gait Description: Senior Care Goal: Patient will ambulate with independence x 200 feet with use of 4 wheel walker, over even surfaces with the following gait characteristics no LOB in order to safely ambulate into [facility] to obtain groceries. To be met by 12-30-24. PT COMPREHENSIVE No PT Transfers Description: Paintings Conservator Goal: Patient will perform sit<>stand transfers with independence with use of a wheeled walker. To be met by 12-30-24. PT COMPREHENSIVE No PT Strength Description: Paintings Conservator Goal: Patient will show improved bilateral lower extremity hip strength as demonstrated by improved manual muscle test score to at least 3+/5 . To be met by 12-30-24. PT COMPREHENSIVE No PT HEP Description: Paintings Conservator Goal: Patient and/or caregiver will independently with [...] MANAGEMENT (O) Completed Diabetes issues identified: None Physical Therapy General (Order Only) Description: Pt's C has been recertified due to the continued need for [facility] services. Pt continues to have a gonzalez catheter. Pt continues to wear 2L O2 at nighttime. [facility] PT referral initially received for diagnosis of difficulty in walking. Pt seen for [facility] PT re-evaluation for new 60 day certification period. Pt would benefit from ongoing skilled [facility] PT for gait/mobility training with walker, balance/endurance training, ther ex, HEP and pt education. [facility] therapy may check oxygen saturation level prn during therapy visits with MD notification if SpO2 maintains below 90%. Pt is aware of the revised plan of care, visit schedule, and goals and is agreeable to continue with [facility] PT. Pt was admitted to [facility] from 10/28/24-11/08/24 for NSTEMI, sepsis, UTI, CHF, [...] CAD, OA, CVA, L femur fracture. [facility] PT referral initially received for diagnosis of difficulty in walking. Pt seen for [facility] PT re-evaluation following hospitalization. Pt would benefit from resuming skilled [facility] PT for gait/mobility training with walker, balance/endurance training, ther ex, HEP and pt/caregiver education. [facility] therapy may check oxygen saturation level prn during therapy visits with MD notification if SpO2 maintains below 90%. Pt is aware of revised plan of care, visit schedule, and goals and is agreeable to resuming [facility] PT. Pt was admitted to [facility] on 10/14/24 and transferred to [facility] the following day - she was [...] CAD, OA, CVA, L femur fracture. [facility] PT referral initially received for diagnosis of difficulty in walking. Pt seen for [facility] PT re-evaluation following hospitalization. Pt would benefit from resuming skilled [facility] PT for gait/mobility training with walker, balance/endurance training, ther ex, HEP and pt/caregiver education. [facility] therapy may check oxygen saturation level prn during therapy visits with MD notification if SpO2 maintains below 90%. Pt is aware of revised plan of care, visit schedule, and goals and is agreeable to resuming [facility] PT. Pt was in [facility] ER on 09/11/24 with c/o abdominal pain, nausea, and vomiting. She was diagnosed with DKA and an NSTEMI. She transferred to [facility] from 09/13/24-10/01/24 due to the [...] CAD, OA, CVA, L femur fracture. [facility] PT referral received for diagnosis of weakness and/or difficulty in walking. Pt presents with decline in general mobility and functional endurance and overall safety. Pt would benefit from skilled [facility] PT for gait/mobility training with walker, balance/endurance training, ther ex, HEP, and pt education. [facility] therapy may check oxygen saturation level prn [...] fall risk. Problem:PT COMPREHENSIVE Goal:PT Balance Completed IBalance training provided this date Static/dynamic standing for 5, 3 -5 min episodes standing balance activity on blue balance pad at 4 w/w with intermittent UE preforming reaching for cones in midline, outside of midline and from high to knee level. Patient then perform green thera band core strenmgthening exercises x 5 reps with instruction in sititng and progression to stsndidng when she has assist for stabilization when needed. UE punch outs x 5 reps and reciprocal arm flexion x 5 reps in standing while maintaining upright posture with head up, CGA/min assist provided with cues for balance stabilization. Patient had intermittent need for stabilization during this activity. Instruction provided to Patient. Response verbalize understanding. Patient preformed improved trunk rotation while reaching across midline and outside DAVID with noted improvement in weight distrubution from pelvic region to maintain balance Tolerance to activity: unsupported standing balance for 28 seconds and tinetti balance score of 19/28 PT Caregiver Assist/Safety Description: Instruct caregiver how to safely assist patient. Problem:PT COMPREHENSIVE Goal:PT Caregiver Assist/Safety Completed with variance Caregiver unavailable PT Activity Tolerance Description: Instruct and educate in therapeutic techniques to build activity tolerance. Problem:PT COMPREHENSIVE Goal:PT Activity Tolerance Completed Skilled instruction consisting of proper breathing technique, pacing, recognizing signs of fatigue, proper gait speed and proper posture provided to Patient during ambulation inside/outside home home for 200 feet. Tolerance to activity: Modified Lam Rating 2/10 and pulse ox reading remains above 90% on room air. PT Stairs and Home Exit Description: Instruct in proper safety and technique for stair training or home exit as directed in the goal. Problem:PT COMPREHENSIVE Goal:PT Stairs and Home Exit Completed Patient negotiated 6 fornt entery steps steps with use of 1 rail with ADVENTURE CHALLENGE INSTRUCTOR . Skilled instruction consisting of sequencing, hand placement, and verbal cues for posture, foot placement and hand placement provided to Patient. Tolerance to activity: decreased assistance required, able to return demonstrate proper technique with verbal/tactile cues required 30% of activity PT Gait Description: Provide gait training for increased safety and efficiency. Progress per patient tolerance and safety. Problem:PT COMPREHENSIVE Goal:PT Gait Completed Patient ambulated with supervision for 200 feet with use of Rolator walker on room air over even surfaces with the following gait characteristics slightly rounded posture with fair Rolator proxcimity, good pace, decreased heal toe pattering, fair step length/height. O2 sats remained above 90% on room air with no SOB noted. Patient had no LOB during this episode. Skilled instruction consisting of pursed lip breathing provided to Patient. Tolerance to activity improved endurance noted PT Transfers Description: Instruct in proper safety and transfer technique. Problem:PT COMPREHENSIVE Goal:PT Transfers Completed Patient perfroms all inside functional transfers with modified independance with Fran june. Car transfers performed with SBA. PT Therapeutic Exercise Description: Instruct on therapeutic exercise. Progress as tolerated. Problem:PT COMPREHENSIVE Goal:PT Strength Completed Patient performed standidng green Thera band exercises for core strengthening and balance training rowing, straight arm shoulder extension with thara band anchored at door knob. straight arm shoulder flexion with thara band anchored on leg of bed. Patient was instructed in modifing exercises preformed in sititng for core strengthening without the balance component when she dose not have caregiver assist. She was also instruedein sitting trunk rotation exercises, forward punch outs, across body punch outs, [...] preformed t/o activities for strengthening. Provided to Patient. Tolerance to activity: able to return demonstrate proper technique 100% with verbal/tactile cues required 60 % of activity PT HEP Progression Description: Instruct on home exercise program. Progress as tolerated. Problem:PT COMPREHENSIVE Goal:PT HEP Completed Reviewed Home Exercise Program issued at prior visits for supine, sit and standing exercises. Preformed siting and standing core strengthen exercises/stabilizat ion exercises utilizing green Thera band for resistance.. Instructed patient to have assist with standing core strengthening activities. Timentin Balance assessment = . Response patient reported she has been performing siting and counter LE/core HEP . documented in this encounter Care Teams Protective Signal Operations Supervisor Relationship Specialty Start Date End Date Donte Lucas PAC [address] [place] [address] PCP - General Physician Salesperson [employer] 10/01/24 documented as of this encounter
--- OUTSIDE RECORDS SUMMARY | 2024-12-29 08:12 | XMS_ITS | Continuity of Care Document ---
Author Organization [facility] Address [id number] [place] [address] [address] [place] [address] Phone Care Team Providers Care Ramp Manager Name Role Phone Puneet CUNNINGHAM MD, Josh Unavailable Unavailab le Procedures Procedure Date POSTOP FOLLOW-UP VISIT CATARACT SURG W/IOL, 1 STAGE CATARACT SURG W/IOL, 1 STAGE OFFICE/OUTPATIENT VISIT, [facility] Advance Directives Directive Yes / No Effective Date File Name No Information Encounters Encounter Description Practice Location Reason(s) For Visit Diagnoses Date Provider Providers Copied on Encounter [facility], [address], [place], [place], [address], tel:[phone] OPH CONSULT CARLOS MENDENHALL No Information 4 Puneet Moreno. [address], [place], [place], [address] , [place]. tel:[phone] Referring Provider: Josh Teixeira MD P, [address], [place], [address] . tel:[phone] [facility], [address], [place], [place], [address], [place] tel:[phone] [facility] No Information 4 Puneet Moreno. [address], [place], [place], [address] , [place]. [phone] Referring Provider: Josh Watkins, [address], [place], [address] . tel:[phone] [facility], [address] [address], [place], [place], [address], tel:[phone] [facility] No Information 3 Puneet Moreno. [address], [place], [place], [address] , [place]. tel:[phone] Referring Provider: Josh Teixeira MD P, [address], [place], [address] . tel:[phone] OFFICE/OUTPAT IENT VISIT, [facility], [address] [address], [place], [place], [address], tel:[phone] [facility] No Information 3 Puneet Moreno. [address], [place], [place], [address] , [place]. tel:[phone] Referring Provider: Josh Watkins, [address], [place], [address] . tel:[phone] Family History Family Member Type Diagnosis Age [...]
--- OUTSIDE RECORDS SUMMARY | 2024-12-29 08:12 | XMS_ITS | Patient Health Record ---
Author Organization [facility] Address [address] [place] [address] [place] [address] Care Team Providers Care Lehr Tender Name Role Phone Dr Arnoldo Gary Primary Care Provider Unavailab Alexi Gutierrez Unavailable [phone] REASON FOR REFERRAL No Information PLAN OF TREATMENT No Information Insurance Providers Payer Name Payer Address Payer Phone Subscriber Number Group Number Insured Name Patient Relationship to Insured Coverage Start Date Coverage End Date Home [facility] Health Plan [address] [place] [id number] Brooke Garcia Self - patient is the insured 2
--- OUTSIDE RECORDS SUMMARY | 2024-12-29 08:12 | XMS_ITS | Referral Summary ---
Author Organization [facility] Address [address] [place] [address] Care Team Providers Care Can Maker Name Role Phone Donte Lucas Primary Care Provider Encounters Date Type Department Care Team Description 12/01/2024 9:00 AM CDT Office Visit [facility] [address] [place] [address] [address] [place] [address] Maggie Schmitz NP Chronic systolic congestive heart failure (HCC) (Primary Dx); Coronary artery disease involving inupiat coronary artery of inupiat heart without angina pectoris; Lipid screening; Paroxysmal atrial fibrillation (HCC); Urinary retention; Hospital discharge follow-up 11/10/2024 3:00 PM CDT Home Care Visit [address] [place] [address] Danuta Peña, [facility] INFORMATIONAL VISIT 11/08/2024 Home Care Visit [address] [place] [address] Amanda Mcdonnell RN SN TRIAGE ENCOUNTER 11/07/2024 Orders Only [facility] Cardiology [address] [facility] [address] [place] [address] John Freedman MD 10/28/2024 Orders Only [facility] Hospitalists [address] [place] [address] Trevor Rollins MD 09/13/2024 1:12 AM HAMMERER - 10/01/2024 5:21 PM HAMMERER Hospital Encounter [facility] [address] [place] [address] Carl Abreu MD Striker, David A., MD [...] hematuria 09/22/2021 Coronary artery disease invo lving inupiat coronary artery of inupiat heart without angina pectoris 09/22/2021 Chronic pain [...] 0.6 oz pur e alcohol) [facility] Utilities Answer Date Recorded In the past 12 months has [employer], gas, oil, or water [employer] threatened to shut off services in your [...] attend chur ch or episcopal services? Never 09/13/2024 Do you belong to any clubs o r organizations such as evangelical groups, unions, fraternal or athletic groups, or [...] any time in the past 12 m [facility], were you homeless or living [...] on file Legal Sex Female 11:01 PM HAMMERER Gender Identity Not on file Sexual Orientation Not on file Last Filed Vital Signs Vital Sign Reading Time Taken Comments Blood Pressure 108/68 12/01/2024 8:58 AM CDT Pulse 90 12/01/2024 8:58 AM CDT Temperature 36.4 C (97.6 F) 10/01/2024 3:07 AM HAMMERER Respiratory Rate 18 10/01/2024 3:07 AM HAMMERER Oxygen Saturation 94% 12/01/2024 8:58 AM CDT [...] GLUCOSE DEVICE Routine 10/01/2024 4 :34 PM HAMMERER POCT GLUCOSE DEVICE Routine 10/01/2024 1 1:48 AM HAMMERER XR CHEST 1 VIEW IP Routine 10/01/2024 9:10 AM HAMMERER EGFR Routine 10/01/2024 6:57 AM HAMMERER BASIC METABOLIC PANEL Routine 10/01/2024 6:57 AM HAMMERER MAGNESIUM Routine 10/01/2024 6:57 AM HAMMERER POCT GLUCOSE DEVICE Routine 10/01/2024 6 :04 AM HAMMERER POCT GLUCOSE DEVICE Routine 10/01/2024 2 :00 AM HAMMERER THYROID FUNCTION CASCADE Routine 09/17/2024 4:10 AM HAMMERER HEMOGLOBIN A1C Routine 09/13/2024 1:46 AM HAMMERER COLONOSCOPY REPORT 06/07/2014 from Last 3 Months [...] Result * POCT glucose (10/01/2024 4:34 PM HAMMERER) Glucose, POC 143 70 - 199 mg/dL Comment: For Glucose values <35 mg/dl when Hematocrit is >60 mg/dl,the test may not accurately detect significant hypoglycemia,and testing in the Laboratory should be considered if clinically indicated. Blood 10/01/2024 4:34 PM HAMMERER 10/01/2024 4:34 PM HAMMERER Chai Beck MD LAB POCT ORDERABLES - DEVICE Final Result [facility] [address] [place] [address] * POCT glucose (10/01/2024 11:48 AM HAMMERER) Glucose, POC 145 70 - 199 mg/dL Comment: For Glucose values <35 mg/dl when Hematocrit is >60 mg/dl,the test may not accurately detect significant hypoglycemia,and testing in the Laboratory should be considered if clinically indicated. Blood 10/01/2024 11:4 8 AM HAMMERER 10/01/2024 11:48 AM HAMMERER Result [facility] Chai Beck MD LAB POCT ORDERABLES - DEVICE Final Result [facility] [address] [place] [address] * XR Chest 1 View (10/01/2024 9:10 AM HAMMERER) Anatomical Region Laterality Modality Body, Chest N/A Computed Radiogr aphy 10/01/2024 9:17 AM HAMMERER Impressions 10/01/2024 9:17 AM HAMMERER Comparison 09/24/2024 Improvement in the left lower lobe and lingular consolidation. There is now a small left pleural effusion. Right lung is clear. There is no pneumothorax. The cardiomediastinal silhouette is unchanged.. Electronically signed by: Phillip Mathis MD Narrative 10/01/2024 9:17 AM HAMMERER Chest one view HISTORY: Recent pneumonia treated [...] t * (ABNORMAL) eGFR (10/01/2024 6:57 AM HAMMERER) eGFR 54(L) >=60 mL/min/1. 73 m2 Comment: [...] last reviewed 2021. Blood 10/01/2024 6:57 AM HAMMERER 10/01/2024 7:30 AM HAMMERER Timothy Augustin MD LAB BLOOD ORDERABLES Final Re sult [facility] [address] [employer] [place], [place] [address] * Magnesium (10/01/2024 6:57 AM HAMMERER) Magnesium 1.5 1.4 - 2.5 mg/dL Blood 10/01/2024 6:57 AM HAMMERER 10/01/2024 7:30 AM HAMMERER Arnulfo Jordan MD LAB BLOOD ORDERABLES Final Result Performing Organization Address City/[facility]/ZIP Co de Phone Number [facility] [address] [employer] [place], [place] [id number] * (ABNORMAL) Basic metabolic panel (10/01/2024 6:57 AM HAMMERER) Sodium 140 135 - 145 mmol/L Potassium, pl 2.9(L) 3.3 - 4.9 mmol/L [facility] Chloride 108 97 - 110 mmol/L [facility] CO2 22 22 - 32 mmol/L [facility] Anion gap 10 2 - 15 mmol/L [facility] BUN 22 6 - 25 mg/dL [facility] Creatinine 1.23(H) 0.60 - 1.10 mg/dL [facility] Glucose 162 70 - 199 mg/dL [facility] Comment: Interpretive Data Fasting glucose >/= 126 [...] 2022. Calcium 8.0(L) 8.5 - 10.3 mg/dL [facility] Blood 10/01/2024 6:57 AM HAMMERER 10/01/2024 7:30 AM HAMMERER Timothy Augustin MD LAB BLOOD ORDERABLES Final Re sult Performing Organization Address [facility] Co de Phone Number [facility] [address] Department of [employer] [place], [place] [address] * POCT glucose (10/01/2024 6:04 AM HAMMERER) Glucose, POC 179 70 - 199 mg/dL Comment: For Glucose values <35 mg/dl when Hematocrit is >60 mg/dl,the test may not accurately detect significant hypoglycemia,and testing in the Laboratory should be considered if clinically indicated. Blood 10/01/2024 6:04 AM HAMMERER 10/01/2024 6:04 AM HAMMERER Arnulfo Jordan MD LAB POCT ORDERABLES - DEVIC E Final Result Performing Organization Address City/[facility]/ZIP Co de Phone Number [facility] [address] Department of [employer] [place], [place] [phone] * POCT glucose (10/01/2024 2:00 AM HAMMERER) Glucose, POC 168 70 - 199 mg/dL Comment: For Glucose values <35 mg/dl when Hematocrit is >60 mg/dl,the test may not accurately detect significant hypoglycemia,and testing in the Laboratory should be considered if clinically indicated. Blood 10/01/2024 2:00 AM HAMMERER 10/01/2024 2:00 AM HAMMERER us Arnulfo Jordan MD LAB POCT ORDERABLES - DEVIC E Final Result Performing Organization Address [facility] Co de Phone Number [facility] [address] Department of [employer] [place], [place] [id number] * Thyroid Function [facility] (09/17/2024 4:10 AM HAMMERER) TSH 1.79 0.30 - 4.20 mcIUnit/mL Blood 09/17/2024 4:10 AM HAMMERER 09/17/2024 4:10 AM HAMMERER Elida Winsome Vigil DO LAB BLOOD ORDERABLES F inal Result Performing Organization Address [facility] de Phone Number [facility] [address] Department [employer] [place], [place] [id number] * (ABNORMAL) Hemoglobin A1c (09/13/2024 1:46 AM HAMMERER) Hgb A1C 9.1(H) 4.0 - 5.6 % Estimated Average Glucose 214 mg/dL [facility] Comment: The ADA recommends reporting an estimated Average Glucose (eAG) with all Hemoglobin A1c results using the equation derived from a study of 507 normal and diabetic adults. Minority populations were underrepresented and children were not included. (Diabetes Care 31:9312-1831, 2008). The eAG is not equivalent to a fasting glucose. Blood 09/13/2024 1:46 AM HAMMERER 09/13/2024 1:53 AM HAMMERER Carl Abreu MD LAB BLOOD ORDERABLES Final R esult Performing Organization Address [facility] Co de Phone Number [facility] [address] Department of [employer] [place], [place] [id number] * COLONOSCOPY REPORT (06/07/2014) Anatomical Region Laterality Modality Other Narrative 06/07/2014 Ordered by an unspecified provider. us Historical Provider MD PRAJAPATI PROCEDURE ORDERABLES F inal Result from Last 3 Months or Most Recently Relevant to Health Maintenance Insurance [facility] MEDICARE ADVANTAGE [facility] MEDICARE Address: [facility] [address] [place] [address] [facility] HEALTH PLAN [facility] MEDICARE ADVANTAGE [facility] MEDICARE Address: [address] [address] [place] [address] IDPA IDPA [facility] MEDICARE ADVANTAGE MEDICARE Advance Directives For more information, please contact: [phone] Documents on File Type Date Recorded Patient Coat Cutter Expl anation ADVANCE DIRECTIVE 11/10/2024 2:31 PM [...] MILLAN Daughter in Law Health Care Agent [phone] (Mobile ) Care Teams Can Maker Relationship Specialty Start Date End Date Donte Lucas PA [address] [place] [address] PCP - General Physician Commercial Leasing Manager 08/26/24
--- OUTSIDE RECORDS SUMMARY | 2024-12-29 08:12 | XMS_ITS | Patient Health Record ---
Author Organization [facility] [employer] Address [address] [address] Care Team Providers Care Technician Preventative Medicine Name Role Phone Clement Ray Primary Care [...] 30 Active Vitamin D (Ergocalciferol) 1.25 MG (49716 UT) Oral for 28 Active Atorvastatin Calcium [...] Problem Status W/U Status Risk Notes Problem 3770197 Hypertensive heart disease with heart failure (I11.0) Active confirmed Well control led in office today. She does note lows at times; will try coreg at 1/2 tab BID. May ultimately have to stop beta rebecca or LOUIE-I. Would like to hold off on midodrine if possible. Problem 497941513 Ischemic cardiomyopathy (I25.5) Active confirmed LVEF 35% on las t echo in our office. Will check echo at [facility] as it has been some time. She will resume lisinopril at low dose and hopefully if compliant with that can get her on some low dose beta rebecca and maybe even Corlanor. She is definitely not an ICD candidate at this point given noncompliance. Again, very akshat discussion today. Problem 449768200 Nonrheumatic tricuspid (valve) insufficiency (I36.1) Active confirmed Problem 483661628 Chronic systolic (congestive) heart failure (I50.22) Active [...] echo at some point next year. Problem 825917747 PAD (peripheral artery disease) (I73.9) Active confirmed Problem 709805634 Coronary artery disease involving match-e-be-nash-she-wish band coronary artery of match-e-be-nash-she-wish band heart with angina pectoris (I25.119) Active confirmed [...] as tolerated by her blood pressure. Problem 407075957 History of pulmonary embolism (Z86.711) Active confirmed We discussed th e risk of self stopping the Eliquis. will trial Xarelto. Problem 03720353 Cigarette nicotine dependence without complication (F17.210) Active confirmed The patient alamo s continue to smoke. We did spend 3-5 minutes discussing halfway cardiovascular benefits of cessation as well as cessation strategies. He/she will call with any cessation needs. Plan Of Treatment Future Test Test Name Order Date Magnesium, Serum 06/05/2021 Basic Metabolic Panel (8) 06/05/2021 Insurance Providers Payer Name Payer Address Payer Phone Subscriber Number Group Number Insured Name Patient Relationship to Insured Coverage Start Date Coverage End Date BCBS E. Lopez [address] [place] [address] [id number] Brooke Garcia Self - patient is the insured Medicaid [place] [address] [place] [address] [phone] [id number] Brooke Garcia Self - patient is the insured Medical (General) History Medical History History ICD Code Heart Cath Blood Clots Insomnia Anxiety High Cholesterol Diabetes 2 Surgical History Surgery Date(Month/Year) broken femur 03/27/2021 uterous removal 1999 unsuccessful tuball tonsils 1980 left big toe amputation 2019 eye surgeries Hospitalization History Reason Date(Month/Year) keyla [place] 03/27/20[place] [address] [place] [address]
--- OUTSIDE RECORDS SUMMARY | 2024-12-29 08:12 | XMS_ITS | Encounter Summary ---
Author Organization [employer] Address [address] [place] [address] Care Team Providers Care Yard Truck Driver Name Role Phone Arnoldo Gary MD Primary Care Provider [phone] Encounter Details Date Type Department Care Team (Late st Contact Info) Description 01/25/2002 Inpatient Historical HIS INPATIENT IN BED Palak Shah MD [address] [place] [address] Say Patricio MD [address] [facility] [address] [place] [address] POISONING-ANTITUSSI VES (Primary Dx) Social History Tobacco Use Types Packs/Day Years Used Date Smoking Tobacco: Never Assessed Comments Unknown Sex and Gender Information Value Date Recorded Sex Assigned at Not on file Legal Sex Female 3:51 AM ASSISTANT PRESS OPERATOR Gender Identity Not on file Sexual [...] documented as of this encounter Care Teams Yard Truck Driver Relationship Specialty Start Date End Date Arnoldo Gary MD [address] [place] [address] PCP - General Internal Medicine 03/27/21 documented as of this encounter
--- OUTSIDE RECORDS SUMMARY | 2024-12-29 08:12 | XMS_ITS | Continuity of Care Document ---
Author Organization [facility] Address [address] [place] [address] Phone Care Team Providers Care Market Consultant Name Role Phone Arnulfo Farrell Unavailable Unavailable Advance Directives Directive Yes / No Effective Date File Name No Information Encounters Encounter Description Practice Location Reason(s) For Visit Diagnoses Date Provider Providers Copied on Encounter [facility], [address] [place] [address], [facility], tel:[phone] *Sajan [facility] No Information Bud Arredondo. [address] [place] [address], [facility], . tel:[phone] Family History Family Member Type Diagnosis Age [...]
--- OUTSIDE RECORDS SUMMARY | 2024-12-29 08:12 | XMS_ITS | Encounter Summary ---
Author Organization [facility] Address [address] [place] [address] Care Team Providers Care Residential Energy Auditor Name Role Phone Arnoldo Gary MD Primary Care Provider [phone] Miscellaneous, Not In File Primary Care Provider Unavailable Donte Lucas Primary Care Provider Encounter Details Date Type Department Care Team (Late st Contact Info) Description 09/26/2021 Telephone [facility] Case Management [address] [place] [address] Leydi Bush, RN Social History [...] often do you attend chur ch or samaritan services? Never 09/24/2021 Do you belong to any clubs o r organizations such as baptist groups, unions, fraternal or athletic groups, or [...] on file Legal Sex Female 11:01 PM INSEAM TRIMMING MACHINE OPERATOR Gender Identity Not on file Sexual Orientation Not on file documented as of this encounter Plan of Treatment Not on file documented as of this encounter Visit Diagnoses Not on filedocumented in this encounter Additional Health Concerns Infection Onset Date Last Indicated Resolved Time COVID: Suspected 09/13/2024 09/13/2024 09/13/2024 2:58 AM INSEAM TRIMMING MACHINE OPERATOR Influenza, adult 09/13/2024 09/13/2024 09/28/2024 11:27 AM INSEAM TRIMMING MACHINE OPERATOR C. difficile suspected 09/25/2024 09/26/202409/26 4:13 AM INSEAM TRIMMING MACHINE OPERATOR documented as of this encounter Care Teams Residential Energy Auditor Relationship Specialty Start Date End Date Arnoldo Gary MD [address] [place] [address] PCP - General 12/22/17 05/23/23 Miscellaneous, Not In File PCP - General 05/24/23 Donte Lucas PA [address] [place] [address] PCP - General Physician Fabrication Engineer 08/26/24 documented as of this encounter
--- OUTSIDE RECORDS SUMMARY | 2024-12-29 08:12 | XMS_ITS | Patient Health Record ---
Author Organization [facility] Address [address] [facility] [address] [facility] [address] [place] [address] Care Team Providers Care Floriculture Professor Name Role Phone Gilma Chiu Unavailable [phone] REASON FOR REFERRAL No Information MEDICATIONS Medication [...] Notes Problem Hyperkalemia (E87.5) Active confirmed Hyperkalemia (57927286) Problem Heart failure, unspecified (I50.9) Active confirmed Heart failure (71423703) Problem Hypotension, unspecified (I95.9) Active confirmed Hypotension (75195604) Problem Chronic kidney disease, stage 2 (mild) (N18.2) Active confirmed Chronic kidne y disease stage 2 (853891305) Problem Retention of urine, unspecified (R33.9) Active confirmed Retention of urine (632138172) Problem Type 2 diabetes mellitus without complication, unspecified whether longterm insulin use (E11.9) Active confirmed PLAN OF TREATMENT No Information
--- OUTSIDE RECORDS SUMMARY | 2024-12-29 08:12 | XMS_ITS | Patient Health Record ---
Author Organization [employer] [facility] [place] Address [address] [facility] [address] [place], [place] [address] Care Team Providers Care Loss Prevention Supervisor Name Role Phone Arnoldo Gary Unavailable Unavailable [...] (M47.816) Active confirmed Lumbosacral spondylosis without myelopathy (27753804) Problem Spondylosis without myelopathy or radiculopathy, lumbosacral region (M47.817) Active confirmed Lumbosacral spondylosis without myelopathy (disorder) (00626869) PLAN OF TREATMENT Pending Test Test Name [...]
--- OUTSIDE RECORDS SUMMARY | 2024-12-29 08:12 | XMS_ITS | Clinical Summary ---
Author Organization [email or web address] [facility] Address [address] [place] [address] Phone Care Team Providers Care Correctional Food Service Supervisor Name Role Phone Arnoldo aGry MD Primary Care Provider [phone] Allergies Active Allergy Reactions Criticality Noted Date [...] migh t be different from the original. PANTS CLOSER: DR. 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 Problem Noted Date Diagnosed [...] fraction) Sinus tachycardia Ischemic cardiomyopathy CAD in mentasta artery Asthma GERD (gastroesophageal reflux disease) Critical [...] on file Legal Sex Female 3:51 AM UNIT EDUCATOR Gender Identity Not on file Sexual Orientation [...] 2) 2024 Medical Devices Implanted Type Area Lock Installer Device Identifier Shelf Expiration Date Model / Serial / Lot Tfna Fenestrated Screw 90mm Implanted:Qty: 1 on 03/27/2021 by Bob Deras MD at [facility] Screw Left: Hip [employer] 02/06/2031 04.038.19 0 S / / [id number] Screw Loc Stardrv 5x62mm Strl 04.005.552s - Sload 23 Implanted:Qty: 1 on 03/27/2021 by Bob Deras MD at [facility] Screw Left: Hip [employer] 04.005.55 2 S / LOAD 03/14/21 11mm/125deg Ti Js Tfna 380mm/Left Implanted:Qty: 1 on 03/27/2021 by Bob Deras MD at [facility] Left: Hip [employer] [facility] 01/07/2030 04.037.12 9 S / / [id number] Description:All Synthes comp onents are processed on requisition, [id number]. Procedures Procedure Name Priority Date/Time Associated Diagnosis Comments HEMOGLOBIN A1C Stat 04/25/2022 3:22 AM CDT LIPID PANEL Routine 04/20/2021 5:30 AM CDT MICROALBUMIN/CREATIN INE RATIO, RANDOM UR Routine 06/26/2014 Diabetes mellitus ([facility]) from Last 3 Months or Most Recently Relevant to Health Maintenance Results * (ABNORMAL) HEMOGLOBIN A1C (04/25/2022 3:22 AM CDT) HEMOGLOBIN A1C 8.2(H) <=5.6 % 04/25/2022 4:13 AM CDT [facility] [place] EST. AVG GLUCOSE, A1C 189 mg/dL 04/25/2022 4:13 AM CDT [facility] Blood Venipuncture / Unknown 04/25/2022 3:22 AM CDT 04/25/2022 3:43 AM CDT Narrative [facility] - 04/25/2022 4:13 AM CDT HGB A1C INTERPRETATION NORMAL: <5.7% PRE-DIABETES: 5.7 - 6.4% DIABETES: 6.5% OR GREATER us Alphonse Smason MD CHEMISTRY ORDERABLES Final Result [facility] CLIA # [id number] [address] [place] [address] * (ABNORMAL) LIPID PANEL (04/20/2021 5:30 AM CDT) CHOLESTEROL 166 <200 mg/dL 04/20/2021 6:55 AM CDT [facility] TRIGLYCERIDE 83 <150 mg/dL 04/20/2021 6:55 AM T [facility] HDL 40 40 - 59 mg/dL 04/20/2021 6:55 AM T [facility] LDL CALCULATED 109(H) <100 mg/dL 04/20/2021 6:55 AM T [facility] NON-HDL CHOLESTEROL 126 <130 mg/dL 04/20/2021 6:55 AM T [facility] Blood Venipuncture / Unknown 04/20/2021 5:30 AM CDT 04/20/2021 6:21 AM CDT Narrative [facility] - 04/20/2021 6:55 AM CDT TOTAL CHOLESTEROL [...] Reference Ranges for Lipid Panels (NCEP/AMA) . [facility] Tawana Kelly MD CHEMISTRY ORDERABLES Final Result [facility] [employer] [facility]# [id number] [address] [place] [address] * MICROALBUMIN/CREATININE RATIO, RANDOM UR (06/26/2014) Urine specimen (specimen) Orquidea Delgado MD URINE ORDERABLES Final Result [facility] # [id number] [address] [place] [address] from Last 3 Months or Most Recently Relevant to Health Maintenance Additional Health Concerns Infection Onset Date Last Indicated MRSA Comment:hx MRSA documented per 12/22/17 infectious disease screening form - Cierra Becker RN 12/24/2017 05/09/[address] [place] [address] MEDICAID [facility] MEDICARE Advance Directives For more information, please contact: [phone] * Full Code (Latest Code Status on File) Date Activated Date Inactivated Comments 04/25/2022 2:46 AM 04/29/2022 5:00 PM * Full Code Date Activated Date Inactivated Comments 05/08/2021 5:35 PM 05/24/2021 5:02 PM * Full Code Date Activated Date Inactivated Comments 03/27/2021 7:30 AM 05/08/2021 5:20 PM Care Teams Correctional Food Service Supervisor Relationship Specialty Start Date End Date Arnoldo Gary MD [address] [place] [phone] PCP - General Internal Medicine 03/27/21
--- OUTSIDE RECORDS SUMMARY | 2024-12-29 08:12 | XMS_ITS | Clinical Summary ---
Author Organization [facility] er Address [address] [place] [address] Care Team Providers Care Insulation And Flooring Assembler Name Role Phone Donte Lucas Primary Care [...] hematuria 09/22/2021 Coronary artery disease invo lving [place] coronary artery of [place] heart without angina pectoris 09/22/2021 Chronic pain [...] Description 12/01/2024 9:00 AM CDT Office Visit [facility] Cardiology [address] [place] [address] [place] [phone] Maggie Schmitz NP Chronic systolic congestive heart failure (HCC) (Primary Dx); Coronary artery disease involving [place] coronary artery of [place] heart without angina pectoris; Lipid screening; Paroxysmal atrial fibrillation (HCC); Urinary retention; Hospital discharge follow-up 11/10/2024 3:00 PM CDT Home Care Visit [address] [address] [address] [place] [address] Danuta Peña, PADMA [facility] INFORMATIONAL VISIT 11/08/2024 Home Care Visit [address] [place] [address] Amanda Mcdonnell, PADMA SN TRIAGE ENCOUNTER 11/07/2024 Orders Only [facility] Cardiology [address] [place] [address] [address] [place] [address] John Freedman MD 10/28/2024 Orders Only [facility] Hospitalists [facility] [place] [address] Trevor Rollins MD 09/13/2024 1:12 AM TRAINING ADMINISTRATOR - 10/01/2024 5:21 PM TRAINING ADMINISTRATOR Hospital Encounter [address] [place] [address] Carl Abreu MD Striker, [...] drink = 0.6 oz pur e alcohol) [facility] Utilities Answer Date Recorded In the past 12 months has [employer], gas, oil, or water [employer] threatened to shut off services in your [...] week 09/13/2024 How often do you attend [employer] [place] or sikhism services? Never 09/13/2024 Do you belong to any clubs o r organizations such as taoist groups, unions, fraternal or athletic groups, or [...] any time in the past 12 m [facility], were you homeless or [...] on file Legal Sex Female 11:01 PM TRAINING ADMINISTRATOR Gender Identity Not on file Sexual Orientation Not on file Obstetrics History Last Filed Vital Signs Vital Sign Reading Time Taken Comments Blood Pressure 108/68 12/01/2024 8:58 AM CDT Pulse 90 12/01/2024 8:58 AM CDT Temperature 36.4 C (97.6 F) 10/01/2024 3:07 AM TRAINING ADMINISTRATOR Respiratory Rate 18 10/01/2024 3:07 AM TRAINING ADMINISTRATOR Oxygen Saturation 94% 12/01/2024 8:58 AM CDT [...] GLUCOSE DEVICE Routine 10/01/2024 4 :34 PM TRAINING ADMINISTRATOR POCT GLUCOSE DEVICE Routine 10/01/2024 1 1:48 AM TRAINING ADMINISTRATOR XR CHEST 1 VIEW IP Routine 10/01/2024 9:10 AM TRAINING ADMINISTRATOR EGFR Routine 10/01/2024 6:57 AM TRAINING ADMINISTRATOR BASIC METABOLIC PANEL Routine 10/01/2024 6:57 AM TRAINING ADMINISTRATOR MAGNESIUM Routine 10/01/2024 6:57 AM TRAINING ADMINISTRATOR POCT GLUCOSE DEVICE Routine 10/01/2024 6 :04 AM TRAINING ADMINISTRATOR POCT GLUCOSE DEVICE Routine 10/01/2024 2 :00 AM TRAINING ADMINISTRATOR THYROID FUNCTION CASCADE Routine 09/17/2024 4:10 AM TRAINING ADMINISTRATOR HEMOGLOBIN A1C Routine 09/13/2024 1:46 AM TRAINING ADMINISTRATOR COLONOSCOPY REPORT 06/07/2014 from Last 3 Months [...] Result * POCT glucose (10/01/2024 4:34 PM TRAINING ADMINISTRATOR) Glucose, POC 143 70 - 199 mg/dL Comment: For Glucose values <35 mg/dl when Hematocrit is >60 mg/dl,the test may not accurately detect significant hypoglycemia,and testing in the Laboratory should be considered if clinically indicated. Blood 10/01/2024 4:34 PM TRAINING ADMINISTRATOR 10/01/2024 4:34 PM TRAINING ADMINISTRATOR Result [facility] Chai Beck MD LAB POCT ORDERABLES - DEVICE Final Result Performing Organization Address [facility] Co de Phone Number [facility] [address] [employer] [place], [place] [phone] * POCT glucose (10/01/2024 11:48 AM TRAINING ADMINISTRATOR) Glucose, POC 145 70 - 199 mg/dL Comment: For Glucose values <35 mg/dl when Hematocrit is >60 mg/dl,the test may not accurately detect significant hypoglycemia,and testing in the Laboratory should be considered if clinically indicated. Blood 10/01/2024 11:4 8 AM TRAINING ADMINISTRATOR 10/01/2024 11:48 AM TRAINING ADMINISTRATOR Result [facility] Chai Beck MD LAB POCT ORDERABLES - DEVICE Final Result Performing Organization Address [facility] Co de Phone Number [facility] [address] [place] [address] * XR Chest 1 View (10/01/2024 9:10 AM TRAINING ADMINISTRATOR) Anatomical Region Laterality Modality Body, Chest N/A Computed Radiogr aphy 10/01/2024 9:17 AM TRAINING ADMINISTRATOR Impressions 10/01/2024 9:17 AM TRAINING ADMINISTRATOR Comparison 09/24/2024 Improvement in the left lower lobe and lingular consolidation. There is now a small left pleural effusion. Right lung is clear. There is no pneumothorax. The cardiomediastinal silhouette is unchanged.. Electronically signed by: Phillip Mathis MD Narrative 10/01/2024 9:17 AM TRAINING ADMINISTRATOR Chest one view HISTORY: Recent pneumonia treated [...] unchanged.. Electronically signed by: Phillip Mathis MD Timtohy Augustin MD IMG XR PROCEDURES Final Resul t * (ABNORMAL) eGFR (10/01/2024 6:57 AM TRAINING ADMINISTRATOR) eGFR 54(L) >=60 mL/min/1. 73 m2 Comment: [...] last reviewed 2021. Blood 10/01/2024 6:57 AM TRAINING ADMINISTRATOR 10/01/2024 7:30 AM TRAINING ADMINISTRATOR Timothy Augustin MD LAB BLOOD ORDERABLES Final Re sult [facility] [address] Department [place] [address] * Magnesium (10/01/2024 6:57 AM TRAINING ADMINISTRATOR) [facility] Magnesium 1.5 1.4 - 2.5 mg/dL Blood 10/01/2024 6:57 AM TRAINING ADMINISTRATOR 10/01/2024 7:30 AM TRAINING ADMINISTRATOR Arnulfo Jordan MD LAB BLOOD ORDERABLES Final Result Performing Organization Address [facility] de Phone Number [facility] [address] [place] [address] * (ABNORMAL) Basic metabolic panel (10/01/2024 6:57 AM TRAINING ADMINISTRATOR) [facility] Sodium 140 135 - 145 mmol/L Potassium, pl 2.9(L) 3.3 - 4.9 mmol/L [facility] Chloride 108 97 - 110 mmol/L [facility] CO2 22 22 - 32 mmol/L [facility] Anion gap 10 2 - 15 mmol/L [facility] BUN 22 6 - 25 mg/dL [facility] Creatinine 1.23(H) 0.60 - 1.10 mg/dL [facility] Glucose 162 70 - 199 mg/dL [facility] Comment: Interpretive Data Fasting glucose >/= [...] 2022. Calcium 8.0(L) 8.5 - 10.3 mg/dL [facility] Blood 10/01/2024 6:57 AM TRAINING ADMINISTRATOR 10/01/2024 7:30 AM TRAINING ADMINISTRATOR Result [facility] Timothy Augustin MD LAB BLOOD ORDERABLES Final Re sult Performing Organization Address [facility] Co de Phone Number [facility] [address] Department [place], [place] [phone] * POCT glucose (10/01/2024 6:04 AM TRAINING ADMINISTRATOR) Glucose, POC 179 70 - 199 mg/dL Comment: For Glucose values <35 mg/dl when Hematocrit is >60 mg/dl,the test may not accurately detect significant hypoglycemia,and testing in the Laboratory should be considered if clinically indicated. Blood 10/01/2024 6:04 AM TRAINING ADMINISTRATOR 10/01/2024 6:04 AM TRAINING ADMINISTRATOR Result [facility] Arnulfo Jordan MD LAB POCT ORDERABLES - DEVIC E Final Result Performing Organization Address [facility] de Phone Number [facility] [address] [facility] [place], [place] [phone] * POCT glucose (10/01/2024 2:00 AM TRAINING ADMINISTRATOR) Glucose, POC 168 70 - 199 mg/dL Comment: For Glucose values <35 mg/dl when Hematocrit is >60 mg/dl,the test may not accurately detect significant hypoglycemia,and testing in the Laboratory should be considered if clinically indicated. Blood 10/01/2024 2:00 AM TRAINING ADMINISTRATOR 10/01/2024 2:00 AM TRAINING ADMINISTRATOR Result [facility] Arnulfo Jordan MD LAB POCT ORDERABLES - DEVIC E Final Result Performing Organization Address [facility] Co de Phone Number [facility] [address] Department [place], [place] [phone] * Thyroid Function [place] (09/17/2024 4:10 AM TRAINING ADMINISTRATOR) TSH 1.79 0.30 - 4.20 mcIUnit/mL Blood 09/17/2024 4:10 AM TRAINING ADMINISTRATOR 09/17/2024 4:10 AM TRAINING ADMINISTRATOR Elida Schumacher Musa WELCH LAB BLOOD ORDERABLES F inal Result Performing Organization Address [facility] de Phone Number [facility] [address] [place] [address] * (ABNORMAL) Hemoglobin A1c (09/13/2024 1:46 AM TRAINING ADMINISTRATOR) Hgb A1C 9.1(H) 4.0 - 5.6 % Estimated Average Glucose 214 mg/dL [facility] Comment: The ADA recommends reporting an estimated Average Glucose (eAG) with all Hemoglobin A1c results using the equation derived from a study of 507 normal and diabetic adults. Minority populations were underrepresented and children were not included. (Diabetes Care 31:4633-7788, 2008). The eAG is not equivalent to a fasting glucose. Blood 09/13/2024 1:46 AM TRAINING ADMINISTRATOR 09/13/2024 1:53 AM TRAINING ADMINISTRATOR Carl Abreu MD LAB BLOOD ORDERABLES Final R esult Performing Organization Address [facility] de Phone Number [facility] [address] [place] [address] * COLONOSCOPY REPORT (06/07/2014) Anatomical Region Laterality Modality Other Narrative 06/07/2014 Ordered by an unspecified provider. Historical Provider GI PROCEDURE ORDERABLES F inal Result from Last 3 Months or Most Recently Relevant to Health Maintenance Insurance [employer] [facility] HEALTH PL[facility] [employer] AD[employer]AGE IDPA IDPA [employer] MEDICARE Advance Directives For more information, please contact: [phone] Documents on File Type Date Recorded Patient Panelboard Operator Expl anation ADVANCE DIRECTIVE 11/10/2024 2:31 PM [...] MILLAN Daughter in Law Health Care Agent [phone] (Mobile ) Care Teams Insulation And Flooring Assembler Relationship Specialty Start Date End Date Donte Lucas PA [address] [place] [id number] PCP - General Physician Director Inbound Sales 08/26/24
--- OUTSIDE RECORDS SUMMARY | 2024-12-29 08:12 | XMS_ITS | Clinical Summary ---
Author Organization [facility] Address [address] [place] [address] Phone Care Team Providers Care Tier In Name Role Phone Donte Lucas [facility] Primary Care Provider [phone] Allergies Active Allergy Reactions Criticality Noted Date [...] Response Take 40 mg by mouth daily. [id number] Active midodrine (PROAMATINE) 2.5 MG Tablet Take 2.5 mg by mouth 3 times daily. [id number] Active sacubitril-valsa rtan (ENTRESTO) 24-26 MG Tablet Take 1 Tablet by mouth 2 times daily. take one tab twce daily 12/21/19 25 Active levoFLOXacin (LEVAQUIN) 500 MG Tablet Take 500 mg by mouth daily. 12/09/19 25 025 Encounters Date Type Department Care Team Description 12/28/2024 1:00 PM CDT Home Care Visit [facility] [address] [place] [id number] Maggie Murguia, PT PT - DISCIPLINE DISCHARGE 12/28/[address] [address] Marilyn Pa I, RN Outpatient PT Referral 12/27/2024 12:30 PM CDT Home Care Visit [address] [address] Brooke Burt OTA RESCHEDULED MISSED VISIT 12/27/2024 9:00 AM CDT Home Care Visit [address] [address] Mai Bass, RN SN - HOME VISIT 12/27/2024 Home Care Visit [address] [address] Maggie Murguia, PT TELEPHONE ENCOUNTER 12/27/2024 Lab Requisition [facility] [address] [place] [address] Lorenza Inman MD Provider, Not On File Chronic combined systolic (congestive) and diastolic (congestive) heart failure; Type 2 diabetes mellitus with diabetic chronic kidney disease (HCC) 12/26/2024 10:30 AM CDT Home Care Visit [address] [address] Elisa Pollack PTA PT - HOME VISIT 12/23/2024 12:00 PM CDT Home Care Visit [address] [address] Kathie Rolle OTA OT - HOME VISIT 12/23/2024 Home Care Visit [address] [address] Renetta Hubbard LPN CASE COMMUNICATION 12/23/2024 Travel 12/21/2024 11:00 AM CDT Home Care Visit [address] [address] Kenzie Gonzalez LPN SN - HOME VISIT 12/21/2024 11:00 AM CDT Home Care Visit [address] [address] Elisa Pollack, STORES DESPATCH HAND PT - HOME VISIT 12/21/2024 Travel 12/20/2024 12:15 PM CDT Home Care Visit [address] [address] Kathrin Mcmullen, OT OT - MCCARTHY SUPERVISORY VISIT 12/19/2024 9:00 AM CDT Home Care Visit [address] [address] Elisa Pollack, STORES DESPATCH HAND PT - HOME VISIT 12/19/2024 Travel 12/15/2024 12:30 PM CDT Home Care Visit [address] [address] Brooke Burt, MELANIE OT - HOME VISIT 2024 5:30 PM CDT Home Care Visit [address] [address] Elisa Pollack, STORES DESPATCH HAND PT - HOME VISIT 2024 9:30 AM CDT Home Care Visit [address] [address] Mai Bass, RN SN - HOME VISIT 2024 Travel 12/13/2024 2:30 PM CDT Home Care Visit [address] [address] Elisa Pollack, STORES DESPATCH HAND PT - HOME VISIT 12/13/2024 11:00 AM CDT Home Care Visit [address] [address] Brooke Burt, MELANIE OT - HOME VISIT 12/13/2024 Home Care Visit [address] [address] Brooke Burt, MELANIE CASE COMMUNICATION 12/09/2024 Travel 12/08/2024 10:00 AM CDT Home Care Visit [address] [address] Brooke Burt, MELANIE OT - HOME VISIT 12/08/2024 Home Care Visit [address] [address] Brooke Burt, MELANIE TELEPHONE ENCOUNTER 12/07/2024 11:00 AM CDT Home Care Visit [address] [address] Mai Bass, RN SN - HOME VISIT 12/06/2024 12:00 PM CDT Home Care Visit [address] [address] Maggie Murguia, PT PT - INITIAL EVALUATION 12/06/2024 12:00 PM CDT Home Care Visit [address] [address] Kathrin Mcmullen OT OT - INITIAL EVALUATION 12/04/2024 Plan of Care Documentation [address] [address] 12/02/2024 11:00 AM CDT Home Care Visit [address] [address] Brooke Burt OTA OT - HOME VISIT 12/02/2024 9:00 AM CDT Home Care Visit [address] [address] Mai Bass, RN SN - OASIS RECERTIFICATION 11/30/2024 12:00 PM CDT Home Care Visit [address] [address] Elisa Pollack PTA PT - HOME VISIT 11/30/2024 11:00 AM CDT Home Care Visit [address] [address] Brooke Burt OTA OT - HOME VISIT 11/29/2024 12:00 PM CDT Home Care Visit [address] [address] Elisa Pollack, STORES DESPATCH HAND PT - HOME VISIT 11/29/2024 12:00 PM CDT Home Care Visit [address] [address] Mai Bass, RN SN - PRIORITY VISIT 11/29/2024 Travel 11/25/2024 10:30 AM CDT Home Care Visit [address] [address] Brooke Burt, SPRAY GUN SIZER OT - HOME VISIT 11/23/2024 2:30 PM CDT Home Care Visit [address] [address] Mai Bass, RN SN - PRIORITY VISIT 11/23/2024 11:00 AM CDT Home Care Visit [address] [address] Elisa Pollack, STORES DESPATCH HAND PT - HOME VISIT 11/22/2024 12:00 PM CDT Home Care Visit [address] [address] Brooke Burt, SPRAY GUN SIZER OT - HOME VISIT 11/21/2024 1:30 PM CDT Home Care Visit [address] [address] Mai Bass, RN SN - PRIORITY VISIT 11/21/2024 1:00 PM CDT Home Care Visit [address] [address] Elisa Pollack, STORES DESPATCH HAND PT - HOME VISIT 11/21/2024 Travel 11/17/2024 11:15 AM CDT Home Care Visit [address] [address] Kathrin Mcmullen OT OT - INITIAL EVALUATION 11/16/2024 1:00 PM CDT Home Care Visit [address] [address] Elisa Pollack, STORES DESPATCH HAND PT - HOME VISIT 11/14/2024 11:00 AM CDT Home Care Visit [address] [address] Maggie Murguia, PT PT - INITIAL EVALUATION 11/14/2024 9:00 AM CDT Home Care Visit [address] [address] Mai Bass, RN SN - PRIORITY VISIT 11/11/2024 9:00 AM CDT Home Care Visit [address] [address] Mai Bass, RN SN - OASIS RESUMPTION OF CARE Discharge Disposition: Discharged to home or Selfcare 11/11/2024 Plan of Care Documentation [address] [address] 11/08/[address] [address] Urszula Sparks RN HOME HEALTH 11/03/2024 Home Care Visit [address] [address] Nancy Bradley RN SN - OASIS TRANSFER W/OUT DC 10/28/2024 9:30 AM CDT Home Care Visit [address] [address] Mai Bass, RN SN - PRIORITY VISIT 10/27/2024 10:00 AM CDT Home Care Visit [address] [address] Elisa Pollack, STORES DESPATCH HAND PT - HOME VISIT 10/25/2024 2:30 PM CDT Home Care Visit [address] [address] Deepika Ely, MASKING MACHINE OPERATOR-SPEECH LANGUAGE PATHOLOGIST MASKING MACHINE OPERATOR - INITIAL EVALUATION 10/25/2024 1:30 PM CDT [facility] Visit [facility] [address] [address] Maggie Murguia, PT PT - INITIAL EVALUATION 10/25/2024 12:30 PM CDT Home Care Visit [address] [address] Kathrin Mcmullen OT OT - INITIAL EVALUATION 10/24/2024 2:00 AM CDT [place] [id number] Mai Bass, RN SN - OASIS RESUMPTION OF CARE 10/24/2024 Plan of Care Documentation [address] [address] 10/24/2024 [place] [address] Kami Mccoy, RN 10/23/2024 [place] [address] Deepika Keith, RN Appointment 10/21/2024 [place] [address] Ariana Callahan, RN visits 10/19/2024 [place] Care [place] [id number] Mehnaz Hilario RN SN - OASIS TRANSFER W/OUT DC 10/14/2024 11:00 AM POOL TABLE OPERATOR Home Care Visit [address] [address] Brooke Burt OTA OT - HOME VISIT 10/14/2024 11:00 AM POOL TABLE OPERATOR Home Care Visit [address] [address] Kathleen Clement, STORES DESPATCH HAND PT - HOME VISIT 10/13/2024 1:30 PM POOL TABLE OPERATOR Home Care Visit [address] [address] Mai Bass, RN SN - PRIORITY VISIT 10/13/2024 10:00 AM POOL TABLE OPERATOR Home Care Visit [address] [address] Mercedes Pham, WINE STEWARD/STEWARDESS WINE STEWARD/STEWARDESS - INITIAL EVALUATION 10/12/2024 12:30 PM POOL TABLE OPERATOR Home Care Visit [address] [address] Saima Busby, STORES DESPATCH HAND PT - HOME VISIT 10/11/2024 11:45 AM POOL TABLE OPERATOR Home Care Visit [address] [address] Kathrin Mcmullen OT OT - INITIAL EVALUATION 10/11/2024 8:00 AM POOL TABLE OPERATOR Home Care Visit [address] [address] Mai Bass, RN SN - PRIORITY VISIT 10/11/2024 Home Care Visit [address] [address] Mai Bass, RN TELEPHONE ENCOUNTER 10/11/2024 Home Care Visit [address] [address] Mai Bass, RN TELEPHONE ENCOUNTER 10/07/2024 2:00 PM POOL TABLE OPERATOR Home Care Visit [address] [address] Maggie Murguia, PT PT - INITIAL EVALUATION 10/06/2024 10:00 AM POOL TABLE OPERATOR Home Care Visit [address] [address] Mai Bass, RN SN - OASIS START OF CARE 10/06/2024 Plan of Care Documentation [address] [address] from Last 3 Months Social History Tobacco Use Types Packs/Day Years Used Date Smoking Tobacco: Never Assessed Comments Unknown Sex and Gender Information Value Date Recorded Sex Assigned at Not on file Legal Sex Female 1:58 PM POOL TABLE OPERATOR Gender Identity Not on file Sexual Orientation Not on file Last Filed Vital Signs Vital Sign Reading Time Taken Comments Blood Pressure 112/62 12/27/2024 9:46 AM CDT Pulse 78 12/27/2024 9:46 AM CDT Temperature 37.1 C (98.7 F) 12/27/2024 9:46 AM CDT Respiratory Rate 20 12/27/2024 9:46 AM CDT Oxygen Saturation 97% 12/26/2024 1:38 PM CDT Inhaled Oxygen Concentration - - Weight 98.4 kg (217 lb) 12/26/2024 1:38 PM CDT Height 165.1 cm (5' 5 ) 12/06/2024 12:17 PM CDT Body Mass Index 36.11 12/06/2024 12:17 PM CDT Plan of Treatment Upcoming Encounters Date Type Department Care Team (Late st Contact Info) Description 12/29/2024 12:00 PM CDT Home Care Visit [address] [address] Kathrin Mcmullen OT 01/03/2025 1:00 AM CDT Home Care Visit [address] [address] Mai Bass RN [place] 01/10/2025 1:00 AM CDT Home Care Visit [address] [address] Mai Bass RN [place] 01/17/2025 1:00 AM CDT Home Care Visit [address] [address] Mai Bass RN [place] 01/24/2025 1:00 AM CDT Home Care Visit [address] [address] Mai Bass, PADMA GA 01/31/2025 1:00 AM CDT Appointment [address] [address] Mai Bass, RN [place] Procedures Procedure Name Priority Date/Time Associated Diagnosis Comments UR MICROALBUMIN/CREATI NINE RATIO RANDOM Routine 12/27/2024 9:45 AM CDT 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 Consider Clinical Correlation. CREATININE URINE 58.7 mg/dL 12/28/19 12:06 PM CDT [facility] Comment:No reference range h as been established. Consider Clinical Correlation. ALB/CREAT RATIO 27 0 - 30 mg/g CRE 12/27/2024 12:06 PM CDT [facility] Urine Non-Phlebotomy Collection / Unknown 12/27/2024 9:45 AM CDT 12/27/2024 11:44 AM CDT us Not On File Provider URINE ORDERABLES Final Resu lt [facility] [place] [address] from Last 3 Months Insurance MEDICAID [place] MEDICARE C [employer] Advance Directives * Full Code (Latest Code Status on File) Date Activated Date Inactivated Comments 10/06/2024 10:06 PM Care Teams Tier In Relationship Specialty Start Date End Date Donte Lucas, PAC [address] [id number] PCP - General Physician Factory Focus Technician 10/01/24
== END 2024-12-29 08:07 | disposition home or self-care (01) ==
LOC: CHSIMG 08:09
PROVIDERS: PCP Physician Assistant; Visit Provider Psychiatry & Neurology Neurology
DX: R32 Unspecified urinary incontinence (principal); K76.9 Liver disease, unspecified; I65.23 Occlusion and stenosis of bilateral carotid arteries
CPT/HCPCS: 76857; 93880

== ENCOUNTER 2025-01-05 08:09 | Outpatient (CLI) | payer MEDICARE, MEDICAID, SELFPAY ==
--- NOTE | ~2025-01-05 | MR_ITS ---
MRI of the brain Clinical History: Left sided weakness Technique: Axial and sagittal T1-weighted images were acquired. These were followed by axial T2-weigh monty, diffusion weighted, gradient, and FLAIR images. Findings: There is no acute infarct, intracranial hemorrhage, or mass lesion. There are minimal chron ic white matter changes. Ventricles and subarachnoid spaces are unremarkable. There is either right eye prosthesis or possible right intraocular hemorrhage. Left orbit unremarkable. Paranasal sinuses and mastoid air cells are c lear. Major intracranial flow voids are intact. Sagittal midline structures are intact. IMPRESSION: Minimal chronic white matter changes. Abnormal appearance of the right eyeball. Correlate with ophthalmologic exam/history. Reviewed, dictated and finalized at location . IMPRESSION: Minimal chronic white matter changes. Abnormal appearance of the right eyeball. Correlate with ophthalmologic exam/hi story.
--- NOTE | ~2025-01-05 | MR_ITS ---
EXAMINATION: MR abdomen wo/w con DATE: 01/05/2025 09:56 INDICATION: Liver lesion TECHNIQUE: Magnetic resonance imaging (MRI) of the abdomen was performed without and with 15 mL Multi diana intravenous contrast. Sequences included coronal T2-weighted SS-FSE, coronal and axial FS 2D-F IESTA, axial STIR FSE, axial T2-weighted SS-FSE, axial T2-weighted FS SS-FSE, axial diffusion-weighte d SE, axial dual-echo T1-weighted FSPGR, and axial and coronal T1-weighted LAVA. Postcontrast axial T 1-weighted LAVA images were obtained in a time course. Postcontrast coronal T1-weighted LAVA images w ere obtained. COMPARISON: CT dated 10/28/2024 FINDINGS: Heart size is normal. No pericardial effusion. Tiny left pleural effusion with minimal streaky atelec tasis at the dependent left lung base. Liver, pancreas, bilateral adrenal glands and kidneys are norm al. 4-5 mm low signal intensity gallstone at the neck of the normal partially decompressed gallbladde r. Common bile duct measures up to 5 and 6 mm in diameter which remains normal with no choledocholith iasis. No intrahepatic biliary ductal dilation. There is some chronic scarring along the anterior mar gin of the spleen which could represent sequela prior trauma or infarct. Bowels are unremarkable with no obstruction. No pathologically enlarged abdominal or upper pelvic lymphadenopathy. Bones are unre markable with normal marrow signal throughout. IMPRESSION: 1. Normal appearing liver with no biliary ductal dilation or suspicious hepatic lesions. 2. Cholelithiasis without choledocholithiasis or intra or extrahepatic biliary ductal dilation. 3. Tiny left pleural effusion. Reviewed, dictated and finalized at location A.
--- OUTSIDE RECORDS SUMMARY | 2025-01-05 08:21 | XMS_ITS | Continuity of Care Document ---
Author Organization [facility] Address [address] [place] [address] Phone Care Team Providers Care Anode Adjuster Name Role Phone Arnulfo Farrell Unavailable Unavailable Advance Directives Directive Yes / No Effective Date File Name No Information Encounters Encounter Description Practice Location Reason(s) For Visit Diagnoses Date Provider Providers Copied on Encounter [facility], [address] [place] [address], [facility], tel:[phone] *[facility] No Information Bud Arredondo. [address] [place] [address], [facility], . tel:[phone] Family History Family Member Type Diagnosis Age At Onset No Information Payers Payer name Insurance type Covered constitution party ID Authoriza tion(s) No Information Social [...]
--- OUTSIDE RECORDS SUMMARY | 2025-01-05 08:21 | XMS_ITS | Continuity of Care Document ---
Author Organization [facility] Address [address] [place] [address] Phone Care Team Providers Care Patch Machine Operator Name Role Phone Unavailable Unavailable Unavailable Allergies, [...] ONCE DAILY - Active FreeStyle Carol 2 [place] please issue one reader to monitor constant [...] Diagnoses Date Provider Providers Copied on Encounter [facility], [address] [place] [address], [address], tel:[phone] *[facility] No Information 4 No Information [facility], [address] [place] [address], [address], tel:[phone] *[facility] No Information 3 No Information [facility], [address] [place] [address], [address], tel:[phone] *[facility] Body mass index [BMI] 32.0-32.9, adult 3 No Information OFFICE/OUTPA TIENT VISIT, EST [facility], [address] [place] [address], [address], tel:[phone] *[facility] Diabetes (chief complaint)R efills (chief complaint) Chronic kidney disease, unspecified CKD stageType 2 diabetes mellitus with hyperglycemiaPa in in unspecified joint 3 No Information [facility], [address] [place] [address], [address], [place] tel:[phone] *[facility] No Information 3 No Information [facility], [address] [place] [address], [address], [place] tel:[phone] *[facility] Abnormal complete blood count 3 No Information OFFICE/OUTPA TIENT VISIT, [facility], [address] [place] [address], [address], [place] tel:[phone] *[facility] Surgery clearance (chief complaint) Body mass index [BMI] 29.0-29.9, adultType 2 diabetes mellitus with hyperglycemiaPo lyneuropathyChr onic systolic (congestive) heart failureChronic kidney disease, unspecified CKD stageAt risk for falling 3 No Information [facility], [address] [place] [address], [address], [place] tel:[phone] *[facility] No Information 3 No Information [facility], [address] [place] [address], [address], [place] tel:[phone] *[facility] Polyneuropathy 3 No Information OFFICE/OUTPA TIENT VISIT, [facility], [address] [place] [address], [address], [place] tel:[phone] *[facility] ear pain bilateral (chief complaint)c hronic conditions (chief complaint)e luke (chief complaint)s ore under left breast (chief complaint) Body mass index [BMI] 31.0-31.9, adultCellulitis of breastAcute serous otitis media, bilateralChroni c systolic (congestive) heart failurePolyneur opathyChronic pain of left knee 3 No Information [facility], [address] [place] [address], [address], [place] tel:[phone] *[facility] No Information 3 No Information OFFICE/OUTPA TIENT VISIT, [facility], [address] [place] [address], [address], tel:[phone] *[facility] pain (chief complaint)U TI (chief complaint)c hronic conditions (chief complaint) Pain in unspecified jointChronic kidney disease, unspecified CKD stageType 2 diabetes mellitus with hyperglycemiaBo dy mass index [BMI] 45.0-49.9, adultUTIChronic systolic (congestive) heart failureCardiomy opathy, unspecifiedAt risk for falling 3 No Information [facility], [address] [place] [address], [address], tel:[phone] *[facility] No Information 3 No Information OFFICE/OUTPA TIENT VISIT, [facility], [address] [place] [address], [address], tel:[phone] *[facility] New Patient (chief [...] guidance, and counseling completed Referral Referred To: [address] [place], [place], [phone] Ordered: Referrals: Oncology. [facility]. Evaluate and treat ordered Referral Ordered: tina -Nephrology (related to Type 2 diabetes mellitus with hyperglycemia) ordered Referral Referred To: tina Ordered: Referrals: Nephrology. tina. Location: [place]. Evaluate and treat ordered Referral Referred To: manda prince Ordered: Referrals: Endocrinology, Diabetes and Metabolism. [facility]. Evaluate and treat ordered Referral Ordered: [facility] -Neurology (related to Polyneuropathy) ordered Referral [facility]erred To: [facility] Ordered: Referrals: Neurology. [facility]. Evaluate and treat ordered Referral Referred To: [facility] [address] [address] [place], [place], [id number] Ordered: Referrals: Orthopedic Surgery. [facility]. Location: [facility]. Evaluate and treat ordered Future Order: Radiol ogy Order US ABDOMEN COMPLETE ([id number]), Ordered on: Ordered Future Order: Lab Order CBC w/AU TO DIFF ([id number]), Ordered on: Ordered Future Order: Lab Order COMPREHE NSIVE METABOLIC PANEL ([id number]), Ordered on: Ordered Future Order: Lab Order GLYCOHEM OGLOBIN (A1c) ([id number]), Ordered on: Ordered Future Order: Lab Order Electroc ardiogram ([id number]), Ordered on: Ordered Future Order: Lab Order LIPID PA KAR ([id number]), Ordered on: Ordered Future Order: Lab Order THYROID STIMULATING HORMONE ([id number]), Ordered on: Ordered Future Order: Lab Order BNP (B-t ype Natriuretic Peptide) ([id number]), Sent on: Sent Future Order: Lab Order COMPREHE NSIVE METABOLIC PANEL ([id number]), Sent on: Sent Future Order: Lab Order CBC w/AU TO DIFF ([id number]), Sent on: Sent Future Order: Lab Order Electroc ardiogram ([id number]), Sent on: Sent Future Order: Radiol ogy Order CHEST 2 VW FRONT & LAT ([id number]), Sent on: Sent Future Order: Radiol ogy Order KNEE, LEFT, (1 OR 2 VIEWS) ([id number]), Ordered on: Ordered History Of Present Illness [...]
--- OUTSIDE RECORDS SUMMARY | 2025-01-05 08:21 | XMS_ITS | Referral Summary ---
Author Organization [facility] er Address [address] [place] [address] Care Team Providers Care Collection Coordinator Name Role Phone Donte Lucas Primary Care Provider Encounters Date Type Department Care Team Description 12/01/2024 9:00 AM CDT Office Visit [facility] Cardiology [address] [place] [address] [address] [place] [address] Maggie Schmitz NP Chronic systolic congestive heart failure (HCC) (Primary Dx); Coronary artery disease involving [place] coronary artery of [place] heart without angina pectoris; Lipid screening; Paroxysmal atrial fibrillation (HCC); Urinary retention; Hospital discharge follow-up 11/10/2024 3:00 PM CDT Home Care Visit [address] [place] [address] Danuta Peña, [facility] INFORMATIONAL VISIT 11/08/2024 Home Care Visit [address] [place] [address] Amanda Mcdonnell RN SN TRIAGE ENCOUNTER 11/07/2024 Orders Only [facility] Cardiology [address] [place] [address] John Freedman MD 10/28/2024 Orders Only [facility] [address] [place] [address] Trevor Rollins MD from Last 3 Months Allergies Active Allergy [...] hematuria 09/22/2021 Coronary artery disease invo lving [place] coronary artery of [place] heart without angina pectoris 09/22/2021 Chronic pain [...] th e electric, gas, oil, or water company threatened [...] often do you attend chur ch or hindu services? Never 09/13/2024 Do you belong to [...] any time in the past 12 m [facility], were you homeless or living in a [...] on file Legal Sex Female 11:01 PM EDUCATIONAL PARAPROFESSIONAL Gender Identity Not on file Sexual Orientation Not on file Last Filed Vital Signs Vital Sign Reading Time Taken Comments Blood Pressure 108/68 12/01/2024 8:58 AM CDT Pulse 90 12/01/2024 8:58 AM CDT Temperature 36.4 C (97.6 F) 10/01/2024 3:07 AM EDUCATIONAL PARAPROFESSIONAL Respiratory Rate 18 10/01/2024 3:07 AM EDUCATIONAL PARAPROFESSIONAL Oxygen Saturation 94% 12/01/2024 8:58 AM CDT Inhaled Oxygen Concentration - - Weight 94.8 kg (209 lb) 12/01/2024 8:58 AM CDT Height 165.1 cm (5' 5) 12/01/2024 8:58 AM CDT Body Mass Index [...] DOCUMENT SCAN Routine 10/29/2024 11:46 AM CDT EGFR Routine 10/01/2024 6:57 AM EDUCATIONAL PARAPROFESSIONAL THYROID FUNCTION CASCADE Routine 09/17/2024 4:10 AM EDUCATIONAL PARAPROFESSIONAL HEMOGLOBIN A1C Routine 09/13/2024 1:46 AM EDUCATIONAL PARAPROFESSIONAL COLONOSCOPY REPORT 06/07/2014 from Last 3 Months [...] CDT) Anatomical Region Laterality Modality Other us Arvizu Ko MD CV CARDIAC SERVICES PROCEDURES F inal Result * Cardiology Document Scan (11/02/2024 12:39 PM CDT) Anatomical Region Laterality Modality Other Result Jordan Freedman MD CV CARDIAC SERVICES PRO CEDURES Final Result * Cardiology Document Scan (11/01/2024 12:23 PM CDT) Anatomical Region Laterality Modality Other Result Jordan Freedman MD CV CARDIAC SERVICES PRO CEDURES Final Result * Cardiology Document Scan (10/31/2024 11:58 AM CDT) Anatomical Region Laterality Modality Other Result Jordan Carter MD CV CARDIAC SERVICES PROCEDURES F inal Result * Cardiology Document Scan (10/29/2024 11:46 AM CDT) Anatomical Region Laterality Modality Other Result Jordan John Freedman MD CV CARDIAC SERVICES PRO CEDURES Final Result * (ABNORMAL) eGFR (10/01/2024 6:57 AM EDUCATIONAL PARAPROFESSIONAL) eGFR 54(L) >=60 mL/min/1. 73 m2 Comment: [...] last reviewed 2021. Blood 10/01/2024 6:57 AM EDUCATIONAL PARAPROFESSIONAL 10/01/2024 7:30 AM EDUCATIONAL PARAPROFESSIONAL Timothy Augustin MD LAB BLOOD ORDERABLES Final Re sult Performing Organization Address [facility] Co de Phone Number [facility] [address] Department of [employer] [place], [place] [phone] * Thyroid Function [place] (09/17/2024 4:10 AM EDUCATIONAL PARAPROFESSIONAL) TSH 1.79 0.30 - 4.20 mcIUnit/mL Blood 09/17/2024 4:10 AM EDUCATIONAL PARAPROFESSIONAL 09/17/2024 4:10 AM EDUCATIONAL PARAPROFESSIONAL Elida Vigil DO LAB BLOOD ORDERABLES F inal Result Performing Organization Address [facility] Phone Number [facility] [address] Department [employer] [place], [place] [phone] * (ABNORMAL) Hemoglobin A1c (09/13/2024 1:46 AM EDUCATIONAL PARAPROFESSIONAL) Hgb A1C 9.1(H) 4.0 - 5.6 % Estimated Average Glucose 214 mg/dL [facility] Comment: The ADA recommends reporting an estimated Average Glucose (eAG) with all Hemoglobin A1c results using the equation derived from a study of 507 normal and diabetic adults. Minority populations were underrepresented and children were not included. (Diabetes Care 31:1426-2172, 2008). The eAG is not equivalent to a fasting glucose. Blood 09/13/2024 1:46 AM EDUCATIONAL PARAPROFESSIONAL 09/13/2024 1:53 AM EDUCATIONAL PARAPROFESSIONAL Carl Abreu MD LAB BLOOD ORDERABLES Final R esult Performing Organization Address [facility] Co de Phone Number [facility] [address] Department [employer] [place], [place] [phone] * COLONOSCOPY REPORT (06/07/2014) Anatomical Region Laterality Modality Other Narrative 06/07/2014 Ordered by an unspecified provider. us Historical Provider MD PRAJAPATI PROCEDURE ORDERABLES F inal Result from Last 3 Months or Most Recently Relevant to Health Maintenance Insurance [facility] MEDICARE [facility] Address: [address] [address] [place] [address] [facility] MEDICARE ADVANTAGE IDPA IDPA [facility] MEDICARE [facility] Address: [address] [address] [place] [address] MEDICARE Advance Directives For more information, please contact: [phone] Documents on File Type Date Recorded Patient Outsoles Channel Opener Expl anation ADVANCE DIRECTIVE 11/10/2024 2:31 PM [...] MILLAN Daughter in Law Health Care Agent [phone] (Mobile ) Care Teams Collection Coordinator Relationship Specialty Start Date End Date Donte Lucas PA [address] [place] [address] PCP - General Physician Health Coach 08/26/24
--- OUTSIDE RECORDS SUMMARY | 2025-01-05 08:21 | XMS_ITS | Clinical Summary ---
Author Organization [employer] [facility] Address [address] [facility] [place] [address] Phone Care Team Providers Care Advertising Material Distributor Name Role Phone Arnoldo Gary MD Primary Care Provider [phone] Allergies Active Allergy Reactions Criticality Noted Date [...] migh t be different from the original. ULTRASOUND MANAGER: DR. 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 Problem Noted Date [...] fraction) Sinus tachycardia Ischemic cardiomyopathy CAD in [place] artery Asthma GERD (gastroesophageal reflux disease) Critical [...] on file Legal Sex Female 3:51 AM COFFEE SHOP AIDE Gender Identity Not on file Sexual [...] 8:43 PM CDT Height 165.1 cm (5' 5) 04/28/2022 8:43 PM CDT Body Mass Index [...] 2) 2024 Medical Devices Implanted Type Area Nursing Unit Manager Device Identifier Shelf Expiration Date Model / Serial / Lot Tfna Fenestrated Screw 90mm Implanted:Qty: 1 on 03/27/2021 by Bob Deras MD at [facility] Screw Left: Hip [employer] 02/06/2031 04.038.19 0 S / / [id number] Screw Loc Stardrv 5x62mm Strl 04.005.552s - Sload 23 Implanted:Qty: 1 on 03/27/2021 by Bob Deras MD at [facility] Screw Left: Hip [employer]AT[employer] 04.005.55 2 S / LOAD 03/14/21 11mm/125deg Ti Js Tfna 380mm/Left Implanted:Qty: 1 on 03/27/2021 by Bob Deras MD at [facility] Left: Hip [employer] [facility] 01/07/2030 04.037.12 9 S / / [id number] Description:All Synthes comp onents are processed on requisition, [id number]. Procedures Procedure Name Priority Date/Time Associated Diagnosis Comments HEMOGLOBIN A1C Stat 04/25/2022 3:22 AM CDT LIPID PANEL Routine 04/20/2021 5:30 AM CDT MICROALBUMIN/CREATIN INE RATIO, RANDOM UR Routine 06/26/2014 Diabetes mellitus ([facility]) from Last 3 Months or Most Recently Relevant to Health Maintenance Results * (ABNORMAL) HEMOGLOBIN A1C (04/25/2022 3:22 AM CDT) HEMOGLOBIN A1C 8.2(H) <=5.6 % 04/25/2022 4:13 AM CDT [facility] [place] EST. AVG GLUCOSE, A1C 189 mg/dL 04/25/2022 4:13 AM CDT [facility] Blood Venipuncture / Unknown 04/25/2022 3:22 AM CDT 04/25/2022 3:43 AM CDT Narrative [facility] - 04/25/2022 4:13 AM CDT HGB A1C INTERPRETATION NORMAL: <5.7% PRE-DIABETES: 5.7 - 6.4% DIABETES: 6.5% OR GREATER us Alphonse Samson MD CHEMISTRY ORDERABLES Final Result [facility] CLIA # [id number] [address] [place] [address] * (ABNORMAL) LIPID PANEL (04/20/2021 5:30 AM CDT) CHOLESTEROL 166 <200 mg/dL 04/20/2021 6:55 AM CDT [facility] TRIGLYCERIDE 83 <150 mg/dL 04/20/2021 6:55 AM T [facility] HDL 40 40 - 59 mg/dL 04/20/2021 6:55 AM T [facility] LDL CALCULATED 109(H) <100 mg/dL 04/20/2021 6:55 AM T [facility] NON-HDL CHOLESTEROL 126 <130 mg/dL 04/20/2021 6:55 AM T [facility] Blood Venipuncture / Unknown 04/20/2021 5:30 AM CDT 04/20/2021 6:21 AM CDT Narrative [facility] - 04/20/2021 6:55 AM CDT [...] Reference Ranges for Lipid Panels (NCEP/AMA) . [facility] Tawana Kelly MD CHEMISTRY ORDERABLES Final Result [facility]# [id number] [address] [place] [address] * MICROALBUMIN/CREATININE RATIO, RANDOM UR (06/26/2014) Urine specimen (specimen) Orquidea Delgado MD URINE ORDERABLES Final Result [facility] # [id number] [address] [place] [address] from Last 3 Months or Most Recently Relevant to Health Maintenance Additional Health Concerns Infection Onset Date Last Indicated MRSA Comment:hx MRSA documented per 12/22/17 infectious disease screening form - Cierra Becker RN 12/24/2017 05/09/[address] [place] [address] [address] [facility] MEDICARE Advance Directives For more information, please contact: [phone] * Full Code (Latest Code Status on File) Date Activated Date Inactivated Comments 04/25/2022 2:46 AM 04/29/2022 5:00 PM * Full Code Date Activated Date Inactivated Comments 05/08/2021 5:35 PM 05/24/2021 5:02 PM * Full Code Date Activated Date Inactivated Comments 03/27/2021 7:30 AM 05/08/2021 5:20 PM Care Teams Advertising Material Distributor Relationship Specialty Start Date End Date Arnoldo Gary MD [address] [place] [phone] PCP - General Internal Medicine 03/27/21
--- OUTSIDE RECORDS SUMMARY | 2025-01-05 08:21 | XMS_ITS | Continuity of Care Document ---
Author Organization [facility] Address [id number] [place] [address] [address] [place] [address] Phone Care Team Providers Care Tourism Radio Presenter Name Role Phone Puneet CUNNINGHAM MD, Josh Unavailable Unavailab le Procedures Procedure Date POSTOP FOLLOW-UP VISIT CATARACT SURG W/IOL, 1 STAGE CATARACT SURG W/IOL, 1 STAGE OFFICE/OUTPATIENT VISIT, [facility] Advance Directives Directive Yes / No Effective Date File Name No Information Encounters Encounter Description Practice Location Reason(s) For Visit Diagnoses Date Provider Providers Copied on Encounter [facility], [address] [facility] [address], [place], [place], [id number], tel:[phone] [facility]LOS MEND[facility] No Information 4 Puneet Moreno. [address], [place], [place], [address] , [place]. tel:[phone] Referring Provider: Josh Teixeira MD P, [address], [place], [address] . tel:[phone] [facility], [address], [place], [place], [address], [place] tel:[phone] [facility] No Information 4 Puneet Moreno. [address], [place], [place], [address] , [place]. [phone] Referring Provider: Josh Watkins, [address], [place], [address] . tel:[phone] [facility], [address] [facility] [address], [place], [place], [address], tel:[phone] [facility] No Information 3 Puneet Moreno. [address], [place], [place], [address] , [place]. tel:[phone] Referring Provider: Josh Teixeira MD P, [address], [place], [address] . tel:[phone] OFFICE/OUTPAT IENT VISIT, [facility], [address] [facility] [address], [place], [place], [address], tel:[phone] [facility] No Information 3 Puneet Moreno. [address], [place], [place], [address] , [place]. tel:[phone] Referring Provider: Josh Watkins, [address], [place], [address] . tel:[phone] Family History Family Member Type Diagnosis Age [...]
--- OUTSIDE RECORDS SUMMARY | 2025-01-05 08:21 | XMS_ITS | Patient Health Record ---
Author Organization [facility] Address [address] [place] [address] Care Team Providers Care Third Mate Name Role Phone Clement Ray Primary Care Provider Unavailab Hunter CUNNINGHAM, Ugo Unavailable [phone] Allergies Allergen (clinical drug ingredient) Drug/Non [...] 30 Active Vitamin D (Ergocalciferol) 1.25 MG (59517 UT) Oral for 28 Active Atorvastatin Calcium [...] Problem Status W/U Status Risk Notes Problem 7503599 Hypertensive heart disease with heart failure (I11.0) Active confirmed Well control led in office today. She does note lows at times; will try coreg at 1/2 tab BID. May ultimately have to stop beta rebecca or LOUIE-I. Would like to hold off on midodrine if possible. Problem 188565302 Ischemic cardiomyopathy (I25.5) Active confirmed LVEF 35% on las t echo in our office. Will check echo at [facility] as it has been some time. She will resume lisinopril at low dose and hopefully if compliant with that can get her on some low dose beta rebecca and maybe even Corlanor. She is definitely not an ICD candidate at this point given noncompliance. Again, very akshat discussion today. Problem 765092523 Nonrheumatic tricuspid (valve) insufficiency (I36.1) Active confirmed Problem 324082349 Chronic systolic (congestive) heart failure (I50.22) Active [...] echo at some point next year. Problem 280401063 PAD (peripheral artery disease) (I73.9) Active confirmed Problem 800090938 Coronary artery disease involving [place] coronary artery of [place] heart with angina pectoris (I25.119) Active confirmed [...] as tolerated by her blood pressure. Problem 459259355 History of pulmonary embolism (Z86.711) Active confirmed We discussed th e risk of self stopping the Eliquis. will trial Xarelto. Problem 34878303 Cigarette nicotine dependence without complication (F17.210) Active confirmed The patient alamo s continue to smoke. We did spend 3-5 minutes discussing skilled nursing cardiovascular benefits of cessation as well as cessation strategies. He/she will call with any cessation needs. Plan Of Treatment Future Test Test Name Order Date Magnesium, Serum 06/05/2021 Basic Metabolic Panel (8) 06/05/2021 Insurance Providers Payer Name Payer Address Payer Phone Subscriber Number Group Number Insured Name Patient Relationship to Insured Coverage Start Date Coverage End Date BCBS [place] [address] [place] [address] [id number] Brooke Garcia Self - patient is the insured Medicaid [place] [address] [place] [address] [phone] [id number] Brooke Garcia Self - patient is the insured Medical (General) History Medical History History ICD Code Heart Cath Blood Clots Insomnia Anxiety High Cholesterol Diabetes 2 Surgical History Surgery Date(Month/Year) broken femur 03/27/2021 uterous removal 1999 unsuccessful tuball tonsils 1980 left big toe amputation 2019 eye surgeries Hospitalization History Reason Date(Month/Year) [place]yla [place]/27/20[place] [address] [place] [address]
--- OUTSIDE RECORDS SUMMARY | 2025-01-05 08:21 | XMS_ITS | Clinical Summary ---
Author Organization [facility] Address [address] [place] [address] Care Team Providers Care Exceptional Needs Teacher Name Role Phone Clement Pinto APRN-CORPORATE SALES REPRESENTATIVE Primary Care Provider Source Comments [facility],non-owned Affiliates and Associated Physician Practices is amultiple site organization consisting of ambulatory clinics and hospital sitesin [place], [place], [place] and [place]. This disclosure is being madepursuant to the Care Everywhere program and may not contain all information available regarding this patient. Last updated [employer] [facility] Allergies Active Allergy Reactions Criticality Noted Date [...] by mouth once daily Active HYDROcodone-pankaj taminophen ([place]) 5-325 MG tabletIndicatio ns:Post-operati ve state Take [...] on file Legal Sex Female 10:39 AM SORT MANAGER Gender Identity Not on file Sexual [...] 8:52 AM CDT Height 165.1 cm (5' 5) 05/13/2023 8:52 AM CDT Body Mass Index [...] patient's age to complete this topic Insurance [place] [address] [facility] [place] Care Teams Exceptional Needs Teacher Relationship Specialty Start Date End Date Clement Pinto APRN-JANENE [address] [place] [address] PCP - General Nurse Practitioner Family 05/13/23
--- OUTSIDE RECORDS SUMMARY | 2025-01-05 08:21 | XMS_ITS | Patient Health Record ---
Author Organization [facility] Address [address] [address] [facility] [address] [place] [address] Care Team Providers Care In School Suspension Aide Name Role Phone Gilma Chiu Unavailable [phone] Reason For Referral No Information Medications Medication SIG (Take, Route, Fr equency, Duration) Notes Start Date End Date Status Bumetanide 1 mg TAKE 2 TABLETS BY MO UTH EVERY MORNING and 1 TABLET BY MOUTH EVERY EVENING for 90 Active Social History Sex Assigned At : Social History Observation Description Sex Assigned At Female Problems Problem Type SNOMED Code ICD Code Onset Dates Problem Status W/U Status Risk Notes Problem Hyperkalemia (14899651) Hyperkalemia (E87.5) Active confirmed Problem Heart failure (04089619) Heart failure, unspecified (I50.9) Active confirmed Problem Hypotension (18085346) Hypotension, unspecified (I95.9) Active confirmed Problem Chronic kidney disease stage 2 (221864862) Chronic kidney disease, stage 2 (mild) (N18.2) Active confirmed Problem Retention of urine (077647497) Retention of urine, unspecified (R33.9) Active confirmed Problem Type II diabetes mellitus without complication (674604721) Type 2 diabetes mellitus without complication, unspecified whether terminal operations manager insulin use (E11.9) Active confirmed Plan Of Treatment No Information
--- OUTSIDE RECORDS SUMMARY | 2025-01-05 08:21 | XMS_ITS | Clinical Summary ---
Author Organization [facility] er Address [address] [place] [address] Care Team Providers Care Tradeshow Worker Name Role Phone Donte Lucas Primary [...] hematuria 09/22/2021 Coronary artery disease invo lving [place] coronary artery of [place] heart without angina pectoris 09/22/2021 Chronic pain [...] Description 12/01/2024 9:00 AM CDT Office Visit [facility] Cardiology [address] [place] [address] [address] [place] [address] Maggie Schmitz NP Chronic systolic congestive heart failure (HCC) (Primary Dx); Coronary artery disease involving [place] coronary artery of [place] heart without angina pectoris; Lipid screening; Paroxysmal atrial fibrillation (HCC); Urinary retention; Hospital discharge follow-up 11/10/2024 3:00 PM CDT Home Care Visit [address] [address] [address] [place] [address] Danuta Peña, PADMA [facility] INFORMATIONAL VISIT 11/08/2024 Home Care Visit [address] [place] [address] Amanda Mcdonnell, PADMA SN TRIAGE ENCOUNTER 11/07/2024 Orders Only [facility] Cardiology [address] [facility] [address] [place] [address] John Freedman MD 10/28/2024 Orders Only [facility] [address] [place] [address] Trevor Rollins MD from Last 3 Months Surgical History Surgery [...] drink = 0.6 oz pur e alcohol) [facility] Utilities Answer Date Recorded In the past 12 months has [employer] electric, gas, oil, or water company threatened [...] any time in the past 12 m [facility], were you homeless or living [...] on file Legal Sex Female 11:01 PM PHARMACY CLINICAL COORDINATOR Gender Identity Not on file Sexual Orientation Not on file Obstetrics History Last Filed Vital Signs Vital Sign Reading Time Taken Comments Blood Pressure 108/68 12/01/2024 8:58 AM CDT Pulse 90 12/01/2024 8:58 AM CDT Temperature 36.4 C (97.6 F) 10/01/2024 3:07 AM PHARMACY CLINICAL COORDINATOR Respiratory Rate 18 10/01/2024 3:07 AM PHARMACY CLINICAL COORDINATOR Oxygen Saturation 94% 12/01/2024 8:58 AM CDT [...] Additional history exists TSH Level 10/15/2025 10/15/2024, 020 03/2025, 04/25/2022, Additional history exists Lipid Panel 12/01/2025 12/01/2024, 020 01/2024, 04/20/2021, Additional history exists DTaP/Tdap/Td Vaccine [...] AM CDT EGFR Routine 10/01/2024 6:57 AM PHARMACY CLINICAL COORDINATOR THYROID FUNCTION CASCADE Routine 09/17/2024 4:10 AM PHARMACY CLINICAL COORDINATOR HEMOGLOBIN A1C Routine 09/13/2024 1:46 AM PHARMACY CLINICAL COORDINATOR COLONOSCOPY REPORT 06/07/2014 from Last 3 Months [...] AM CDT) Anatomical Region Laterality Modality Other us Nolberto Carter MD [facility] C[facility] SERVICES PROCEDURES F inal Result * Cardiology Document Scan (10/29/2024 11:46 AM CDT) Anatomical Region Laterality Modality Other John Freedman MD CV CARDIAC SERVICES PRO CEDURES Final Result * (ABNORMAL) eGFR (10/01/2024 6:57 AM PHARMACY CLINICAL COORDINATOR) eGFR 54(L) >=60 mL/min/1. 73 m2 Comment: [...] last reviewed 2021. Blood 10/01/2024 6:57 AM PHARMACY CLINICAL COORDINATOR 10/01/2024 7:30 AM PHARMACY CLINICAL COORDINATOR us Timothy Augustin MD LAB BLOOD ORDERABLES Final Re sult [facility] [address] Department [place] [employer] [place] [address] * Thyroid Function [place] (09/17/2024 4:10 AM PHARMACY CLINICAL COORDINATOR) TSH 1.79 0.30 - 4.20 mcIUnit/mL Blood 09/17/2024 4:10 AM PHARMACY CLINICAL COORDINATOR 09/17/2024 4:10 AM PHARMACY CLINICAL COORDINATOR Elidaflorence Schumacher Musa WELCH LAB BLOOD ORDERABLES F inal Result Performing Organization Address [facility] de Phone Number [facility] [address] Department [employer] [place] [address] * (ABNORMAL) Hemoglobin A1c (09/13/2024 1:46 AM PHARMACY CLINICAL COORDINATOR) Hgb A1C 9.1(H) 4.0 - 5.6 % Estimated Average Glucose 214 mg/dL [facility] Comment: The ADA recommends reporting an estimated Average Glucose (eAG) with all Hemoglobin A1c results using the equation derived from a study of 507 normal and diabetic adults. Minority populations were underrepresented and children were not included. (Diabetes Care 31:3523-3591, 2008). The eAG is not equivalent to a fasting glucose. Blood 09/13/2024 1:46 AM PHARMACY CLINICAL COORDINATOR 09/13/2024 1:53 AM PHARMACY CLINICAL COORDINATOR Carl Abreu MD LAB BLOOD ORDERABLES Final R esult Performing Organization Address [facility] Co de Phone Number [facility] [address] [place] [address] * COLONOSCOPY REPORT (06/07/2014) Anatomical Region Laterality Modality Other Narrative 06/07/2014 Ordered by an unspecified provider. Historical Provider GI PROCEDURE ORDERABLES F inal Result from Last 3 Months or Most Recently Relevant to Health Maintenance Insurance [facility] MEDICARE ADVANTAGE [facility] Address: [address] [address] [place] [address] [facility] HEALTH PLAN [place] [facility] MEDICARE ADVANTAGE [facility] MEDIC[facility] Address: [address] [address] [place] [address] IDPA IDPA [facility] MEDICARE ADVANTAGE [facility]IC[facility] Address: [address] [address] [place] [address] MEDICARE Advance Directives For more information, please contact: [phone] Documents on File Type Date Recorded Patient Saddle Maker Expl anation ADVANCE DIRECTIVE 11/10/2024 2:31 PM [...] MILLAN Daughter in Law Health Care Agent [phone] (Mobile ) Care Teams Tradeshow Worker Relationship Specialty Start Date End Date Donte Lucas PA [address] [place] [address] PCP - General Physician Clinical Mental Health Counselor 08/26/24
--- OUTSIDE RECORDS SUMMARY | 2025-01-05 08:21 | XMS_ITS | Encounter Summary ---
Author Organization [facility] Address [address] [place] [address] Care Team Providers Care Business Reporter Name Role Phone Arnoldo Gary MD Primary Care Provider [phone] Encounter Details Date Type Department Care Team (Late st Contact Info) Description 01/25/2002 Inpatient Historical HIS INPATIENT IN BED Palak Shah MD [address] [place] [address] Say Patricio MD [address] [facility] [address] [place] [address] POISONING-ANTITUSSI VES (Primary Dx) Social History Tobacco Use Types Packs/Day Years Used Date Smoking Tobacco: Never Assessed Comments Unknown Sex and Gender Information Value Date Recorded Sex Assigned at Not on file Legal Sex Female 3:51 AM SULFIDE HEAD OPERATOR Gender Identity Not on file Sexual [...] documented as of this encounter Care Teams Business Reporter Relationship Specialty Start Date End Date Arnoldo Gary MD [address] [place] [address] PCP - General Internal Medicine 03/27/21 documented as of this encounter
--- OUTSIDE RECORDS SUMMARY | 2025-01-05 08:21 | XMS_ITS | Patient Health Record ---
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
--- OUTSIDE RECORDS SUMMARY | 2025-01-05 08:21 | XMS_ITS | Clinical Summary ---
Author Organization [facility] Address [address] [place] [address] Phone Care Team Providers Care Consulting Technical Manager Name Role Phone Donte Lucas [facility] Primary Care Provider [phone] Allergies Active Allergy Reactions Criticality Noted Date [...] Response Take 40 mg by mouth daily. [id number] Active midodrine (PROAMATINE) 2.5 MG Tablet Take 2.5 mg by mouth 3 times daily. [id number] Active sacubitril-valsa rtan (ENTRESTO) 24-26 MG Tablet Take 1 Tablet by mouth 2 times daily. take one tab twce daily 12/21/19 25 Active levoFLOXacin (LEVAQUIN) 500 MG Tablet Take 500 mg by mouth daily. 12/09/19 25 025 Encounters Date Type Department Care Team Description 01/03/2025 1:00 PM CDT Home Care Visit [facility] [address] [address] Kenzie Gonzalez LPN SN - HOME VISIT 12/29/2024 12:00 PM CDT Home Care Visit [address] [address] Kathrin Mcmullen, OT OT - DISCIPLINE DISCHARGE 12/28/2024 1:00 PM CDT Home Care Visit [address] [address] Maggie Murguia, PT PT - DISCIPLINE DISCHARGE 12/28/[address] [address] Marilyn Pa I, RN Outpatient PT Referral 12/27/2024 12:30 PM CDT Home Care Visit [address] [address] Brooke Burt, OLEOMARGARINE MAKER RESCHEDULED MISSED VISIT 12/27/2024 9:00 AM CDT Home Care Visit [address] [address] Mai Bass, RN SN - HOME VISIT 12/27/2024 Home Care Visit [address] [address] Maggie Murguia, PT TELEPHONE ENCOUNTER 12/27/2024 Lab Requisition [facility] Services [address] [place] [address] Lorenza Inman MD Provider, Not On File Chronic combined systolic (congestive) and diastolic (congestive) heart failure; Type 2 diabetes mellitus with diabetic chronic kidney disease (HCC) 12/26/2024 10:30 AM CDT Home Care Visit [address] [address] Elisa Pollack, MANUFACTURING TECHNOLOGY PROFESSOR PT - HOME VISIT 12/23/2024 12:00 PM CDT Home Care Visit [address] [address] Kathie Rolle OTA OT - HOME VISIT 12/23/2024 Home Care Visit [address] [address] Renetta Hubbard LPN CASE COMMUNICATION 12/23/2024 Travel 12/21/2024 11:00 AM CDT Home Care Visit [address] [address] Kenzie Gonzalez LPN SN - HOME VISIT 12/21/2024 11:00 AM CDT Home Care Visit [address] [address] Elisa Pollack, MANUFACTURING TECHNOLOGY PROFESSOR PT - HOME VISIT 12/21/2024 Travel 12/20/2024 12:15 PM CDT Home Care Visit [address] [address] Kathrin Mcmullen, OT OT - MCCARTHY SUPERVISORY VISIT 12/19/2024 9:00 AM CDT Home Care Visit [address] [address] Elisa Pollack, MANUFACTURING TECHNOLOGY PROFESSOR PT - HOME VISIT 12/19/2024 Travel 12/15/2024 12:30 PM CDT Home Care Visit [address] [address] Brooke Burt OTA OT - HOME VISIT 2024 5:30 PM CDT Home Care Visit [address] [address] Elisa Pollack, MANUFACTURING TECHNOLOGY PROFESSOR PT - HOME VISIT 2024 9:30 AM CDT Home Care Visit [address] [address] Mai Bass, RN SN - HOME VISIT 2024 Travel 12/13/2024 2:30 PM CDT Home Care Visit [address] [address] Elisa Pollack, MANUFACTURING TECHNOLOGY PROFESSOR PT - HOME VISIT 12/13/2024 11:00 AM CDT Home Care Visit [address] [address] Brooke Burt, MELANIE OT - HOME VISIT 12/13/2024 Home Care Visit [address] [address] Brooke Burt, OLEOMARGARINE MAKER CASE COMMUNICATION 12/09/2024 Travel 12/08/2024 10:00 AM CDT Home Care Visit [address] [address] Brooke Burt, MELANIE OT - HOME VISIT 12/08/2024 Home Care Visit [address] [address] Brooke Burt, MELANIE TELEPHONE ENCOUNTER 12/07/2024 11:00 AM CDT Home Care Visit [address] [address] Mai Bass, RN SN - HOME VISIT 12/06/2024 12:00 PM CDT Home Care Visit [address] [address] Maggie Murguia, PT PT - INITIAL EVALUATION 12/06/2024 12:00 PM CDT Home Care Visit [address] [address] Kathrin Mcmullen OT OT - INITIAL EVALUATION 12/04/2024 Plan of Care Documentation [address] [address] 12/02/2024 11:00 AM CDT Home Care Visit [address] [address] Brooke Burt, MELANIE OT - HOME VISIT 12/02/2024 9:00 AM CDT Home Care Visit [address] [address] Mai Bass, RN SN - OASIS RECERTIFICATION 11/30/2024 12:00 PM CDT Home Care Visit [address] [address] Elisa Pollack, MANUFACTURING TECHNOLOGY PROFESSOR PT - HOME VISIT 11/30/2024 11:00 AM CDT Home Care Visit [address] [address] Brooke Burt, OLEOMARGARINE MAKER OT - HOME VISIT 11/29/2024 12:00 PM CDT Home Care Visit [address] [address] Elisa Pollack, MANUFACTURING TECHNOLOGY PROFESSOR PT - HOME VISIT 11/29/2024 12:00 PM CDT Home Care Visit [address] [address] Mai Bass, RN SN - PRIORITY VISIT 11/29/2024 Travel 11/25/2024 10:30 AM CDT Home Care Visit [address] [address] Brooke Burt, MELANIE OT - HOME VISIT 11/23/2024 2:30 PM CDT Home Care Visit [address] [address] Mai Bass, RN SN - PRIORITY VISIT 11/23/2024 11:00 AM CDT Home Care Visit [address] [address] Elisa Pollack, MANUFACTURING TECHNOLOGY PROFESSOR PT - HOME VISIT 11/22/2024 12:00 PM CDT Home Care Visit [address] [address] Brooke Burt OTA OT - HOME VISIT 11/21/2024 1:30 PM CDT Home Care Visit [address] [address] aMi Bass, RN SN - PRIORITY VISIT 11/21/2024 1:00 PM CDT Home Care Visit [address] [address] Elisa Pollack, MANUFACTURING TECHNOLOGY PROFESSOR PT - HOME VISIT 11/21/2024 Travel 11/17/2024 11:15 AM CDT Home Care Visit [address] [address] Kathrin Mcmullen OT OT - INITIAL EVALUATION 11/16/2024 1:00 PM CDT Home Care Visit [address] [address] Elisa Pollack, MANUFACTURING TECHNOLOGY PROFESSOR PT - HOME VISIT 11/14/2024 11:00 AM CDT Home Care Visit [address] [address] Maggie Murguia, PT PT - INITIAL EVALUATION 11/14/2024 9:00 AM CDT Home Care Visit [address] [address] Mai Bass RN SN - PRIORITY VISIT 11/11/2024 9:00 AM CDT Home Care Visit [address] [address] Mai Bass, RN SN - OASIS RESUMPTION OF CARE Discharge Disposition: Discharged to home or Selfcare 11/11/2024 Plan of Care Documentation [address] [address] 11/08/[address] [address] Urszula Sparks RN HOME HEALTH 11/03/2024 Home Care Visit [address] [address] Nancy Bradley RN SN - OASIS TRANSFER W/OUT DC 10/28/2024 9:30 AM CDT Home Care Visit [address] [address] Mai Bass RN SN - PRIORITY VISIT 10/27/2024 10:00 AM CDT Home Care Visit [address] [address] Elisa Pollack, MANUFACTURING TECHNOLOGY PROFESSOR PT - HOME VISIT 10/25/2024 2:30 PM CDT Home Care Visit [address] [address] Deepika Ely, MIXING TECHNICIAN-SPEECH LANGUAGE PATHOLOGIST MIXING TECHNICIAN - INITIAL EVALUATION 10/25/2024 1:30 PM CDT Home Care Visit [address] [address] Maggie Murguia, PT PT - INITIAL EVALUATION 10/25/2024 12:30 PM CDT Home Care Visit [address] [address] Kathrin Mcmullen, OT OT - INITIAL EVALUATION 10/24/2024 2:00 AM CDT Home Care Visit [address] [address] Mai Bass, RN SN - OASIS RESUMPTION OF CARE 10/24/2024 Plan of Care Documentation [address] [address] 10/24/[address] [address] Kami Mccoy RN 10/23/[address] [address] Deepika Keith, RN Appointment 10/21/[address] [address] Ariana Callahan, RN visits 10/19/2024 Home Care Visit [address] [address] Mehnaz Hilario, RN SN - OASIS TRANSFER W/OUT DC 10/14/2024 11:00 AM SUPERVISOR DEHYDROGENATION Home Care Visit [address] [address] Brooke Burt, MELANIE OT - HOME VISIT 10/14/2024 11:00 AM SUPERVISOR DEHYDROGENATION Home Care Visit [address] [address] Kathleen Clement, MANUFACTURING TECHNOLOGY PROFESSOR PT - HOME VISIT 10/13/2024 1:30 PM SUPERVISOR DEHYDROGENATION Home Care Visit [address] [address] Mai Bass, RN SN - PRIORITY VISIT 10/13/2024 10:00 AM SUPERVISOR DEHYDROGENATION Home Care Visit [address] [address] Mercedes Pham, COASTAL/HARBOR DEFENSE OFFICER COASTAL/HARBOR DEFENSE OFFICER - INITIAL EVALUATION 10/12/2024 12:30 PM SUPERVISOR DEHYDROGENATION Home Care Visit [address] [address] Saima Busby, MANUFACTURING TECHNOLOGY PROFESSOR PT - HOME VISIT 10/11/2024 11:45 AM SUPERVISOR DEHYDROGENATION Home Care Visit [address] [address] Kathrin Mcmullen OT OT - INITIAL EVALUATION 10/11/2024 8:00 AM SUPERVISOR DEHYDROGENATION Home Care Visit [address] [address] Mai Bass, RN SN - PRIORITY VISIT 10/11/2024 Home Care Visit [address] [address] Mai Bass, RN TELEPHONE ENCOUNTER 10/11/2024 Home Care Visit [address] [address] Mai Bass, RN TELEPHONE ENCOUNTER 10/07/2024 2:00 PM SUPERVISOR DEHYDROGENATION Home Care Visit [address] [address] Maggie Murguia, PT PT - INITIAL EVALUATION from Last 3 Months Social History Tobacco Use Types Packs/Day Years Used Date Smoking Tobacco: Never Assessed Comments Unknown Sex and Gender Information Value Date Recorded Sex Assigned at Not on file Legal Sex Female 1:58 PM SUPERVISOR DEHYDROGENATION Gender Identity Not on file Sexual Orientation Not on file Last Filed Vital Signs Vital Sign Reading Time Taken Comments Blood Pressure 118/64 01/03/2025 1:26 PM CDT Pulse 90 01/03/2025 1:26 PM CDT Temperature 35.9 C (96.7 F) 01/03/2025 1:26 PM CDT Respiratory Rate 16 01/03/2025 1:26 PM CDT Oxygen Saturation 100% 01/03/2025 1:26 PM CDT Inhaled Oxygen Concentration - - Weight 96.6 kg (213 lb) 01/03/2025 1:26 PM CDT Height 165.1 cm (5' 5) 12/06/2024 12:17 PM CDT Body Mass Index 35.45 12/06/2024 12:17 PM CDT Plan of Treatment Upcoming Encounters Date Type Department Care Team (Late st Contact Info) Description 01/10/2025 1:00 AM CDT Home Care Visit [address] [address] Mai Bass RN OR 01/17/2025 1:00 AM CDT Home Care Visit [address] [address] Mai Bass RN OR 01/24/2025 1:00 AM CDT Home Care Visit [address] [address] Mai Bass RN OR 01/31/2025 1:00 AM CDT Appointment [address] [address] Mai Bass, RN OR Procedures Procedure Name Priority Date/Time Associated Diagnosis Comments UR MICROALBUMIN/CREATI NINE RATIO RANDOM Routine 12/27/2024 9:45 AM CDT 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 Consider Clinical Correlation. CREATININE URINE 58.7 mg/dL 12/28/19 12:06 PM CDT [facility] Comment:No reference range h as been established. Consider Clinical Correlation. ALB/CREAT RATIO 27 0 - 30 mg/g CRE 12/27/2024 12:06 PM CDT [facility] Urine Non-Phlebotomy Collection / Unknown 12/27/2024 9:45 AM CDT 12/27/2024 11:44 AM CDT us Not On File Provider URINE ORDERABLES Final Resu lt [facility] [place] [address] from Last 3 Months Insurance MEDICAID [place] MEDICARE [facility] Advance Directives * Full Code (Latest Code Status on File) Date Activated Date Inactivated Comments 10/06/2024 10:06 PM Care Teams Consulting Technical Manager Relationship Specialty Start Date End Date Donte Lucas, PAC [address] [phone] PCP - General Physician Thread Puller 10/01/24
--- OUTSIDE RECORDS SUMMARY | 2025-01-05 08:21 | XMS_ITS | Encounter Summary ---
Author Organization [facility] Healthcare Address [address] [place] [address] Care Team Providers Care Indigo Mixer Name Role Phone Arnoldo Gary MD Primary Care Provider [phone] Miscellaneous, Not In File Primary Care Provider Unavailable Donte Lucas Primary Care Provider Encounter Details Date Type Department Care Team (Late st Contact Info) Description 09/26/2021 Telephone [facility] Case Management [address] [place] [address] Leydi Bsuh, RN Social History Tobacco Use Types Packs/Day [...] often do you attend chur ch or congregation services? Never 09/24/2021 Do you belong to any clubs o r organizations such as buddhism groups, unions, fraternal or athletic groups, or [...] on file Legal Sex Female 11:01 PM SOLAR MANUFACTURER'S REPRESENTATIVE Gender Identity Not on file Sexual Orientation Not on file documented as of this encounter Plan of Treatment Not on file documented as of this encounter Visit Diagnoses Not on filedocumented in this encounter Additional Health Concerns Infection Onset Date Last Indicated Resolved Time COVID: Suspected 09/13/2024 09/13/2024 09/13/2024 2:58 AM SOLAR MANUFACTURER'S REPRESENTATIVE Influenza, adult 09/13/2024 09/13/2024 09/28/2024 11:27 AM SOLAR MANUFACTURER'S REPRESENTATIVE C. difficile suspected 09/25/2024 09/26/202409/26 4:13 AM SOLAR MANUFACTURER'S REPRESENTATIVE documented as of this encounter Care Teams Indigo Mixer Relationship Specialty Start Date End Date Arnoldo Gary MD [address] [place] [address] PCP - General 12/22/17 05/23/23 Miscellaneous, Not In File PCP - General 05/24/23 Donte Lucas PA [address] [place] [id number] PCP - General Physician Posting Specialist 08/26/24 documented as of this encounter
--- OUTSIDE RECORDS SUMMARY | 2025-01-05 08:21 | XMS_ITS | Encounter Summary ---
Author Organization [facility] Address [address] [facility] [place] [address] Phone Care Team Providers Care Garment Tag Stringer Name Role Phone Donte Lucas [facility] Primary Care Provider [phone] Encounter Details Date Type Department Care Team (Late Contact Info) Description 12/27/2024 Lab Requisition [facility] Services [address] [place] [address] Lorenza Inman MD [address] [place] [address] Provider, Not On File [place] Chronic combined systolic (congestive) and diastolic (congestive) heart failure; Type 2 diabetes mellitus with diabetic chronic kidney disease (HCC) Social History Tobacco Use Types Packs/Day Years Used Date Smoking Tobacco: Never Assessed Comments Unknown Sex and Gender Information Value Date Recorded Sex Assigned at Not on file Legal Sex Female 1:58 PM BRAKE ASSEMBLER Gender Identity Not on file Sexual Orientation Not on file documented as of this encounter Plan of Treatment Upcoming Encounters Date Type Department Care Team (Late Contact Info) Description 01/10/2025 1:00 AM CDT Home Care Visit [address] [address] Mai Bass RN [place] 01/17/2025 1:00 AM CDT Home Care Visit [address] [address] Mai Bass RN [place] 01/24/2025 1:00 AM CDT [facility] [address] [place] [address] Mai Bass RN [place] 01/31/2025 1:00 AM CDT Appointment [facility] [address] [place] [address] Mai Bass RN [place] documented as of this encounter Procedures Procedure [...] 1.59 mg/dL 12/27/2024 12:06 PM CDT [facility] Comment:No reference range h as been established. Consider Clinical Correlation. CREATININE URINE 58.7 mg/dL 12/28/19 12:06 PM CDT [facility] Comment:No reference range h as been established. Consider Clinical Correlation. 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
--- OUTSIDE RECORDS SUMMARY | 2025-01-05 08:22 | XMS_ITS | Patient Health Record ---
Author Organization [facility] Address [address] [place] [address] [place] [address] Care Team Providers Care Ophthalmic Tech Name Role Phone Dr Arnoldo Gary Primary Care Provider Unavailab Alexi Gutierrez Unavailable [phone] REASON FOR REFERRAL No Information PLAN OF TREATMENT No Information Insurance Providers Payer Name Payer Address Payer Phone Subscriber Number Group Number Insured Name Patient Relationship to Insured Coverage Start Date Coverage End Date [facility] Health Plan [address] [place] [phone] [id number] Brooke Garcia Self - patient is the insured 2
== END 2025-01-05 08:10 | disposition home or self-care (01) ==
LOC: CHSIMG 08:14
PROVIDERS: PCP Physician Assistant; Visit Provider Psychiatry & Neurology Neurology
DX: R32 Unspecified urinary incontinence (principal); Z87.828 Personal history of other (healed) physical injury and trauma; K80.20 Calculus of gallbladder without cholecystitis without obstruction; J90 Pleural effusion, not elsewhere classified
CPT/HCPCS: 70551; 74183; A9577

== ENCOUNTER 2025-01-13 11:02 | Emergency (ER) | payer MEDICARE, MEDICAID, SELFPAY ==
[2025-01-13] VITALS (18 sets, daily range): BP systolic 100–128; BP diastolic 52–75; PULSE 104–107; RESP 16–20; TEMP 36.6; O2SAT 92–98
--- NOTE | ~2025-01-13 | XR_ITS ---
EXAMINATION: XR chest 2V 01/13/2025 11:54 INDICATION: Chest tightness PROCEDURE: 2 view chest COMPARISON: Comparison to multiple prior studies sequentially, with oldest reviewed study dated 11/06. FINDINGS: The lungs are clear. The cardiomediastinal silhouette is within normal limits. There are no pleural effusions. There is no pneumothorax suspected. IMPRESSION: 1: NO ACUTE CARDIOPULMONARY DISEASE. Reviewed, dictated and finalized at location A.
--- OUTSIDE RECORDS SUMMARY | 2025-01-13 11:04 | XMS_ITS | Encounter Summary ---
Author Organization [facility] Address [address] [place] [address] Phone Care Team Providers Care Payment Processor Name Role Phone Donte Lucas [facility] Primary Care Provider [phone] Encounter Details Date Type Department Care Team (Late st Contact Info) Description 12/27/2024 Lab Requisition [facility] [address] [place] [address] Lorenza Inman MD [address] [place] [address] Provider, Not On File [place] Chronic combined systolic (congestive) and diastolic (congestive) heart failure; Type 2 diabetes mellitus with diabetic chronic kidney disease (HCC) Social History Tobacco Use Types Packs/Day Years Used Date Smoking Tobacco: Never Assessed Comments Unknown Sex and Gender Information Value Date Recorded Sex Assigned at Not on file Legal Sex Female 1:58 PM LARRIMAN Gender Identity Not on file Sexual Orientation Not on file documented as of this encounter Plan of Treatment Not on file documented as of this encounter Procedures Procedure [...] 1.59 mg/dL 12/27/2024 12:06 PM CDT [facility] Comment:No reference range h as been established. Consider Clinical Correlation. CREATININE URINE 58.7 mg/dL 12/28/19 12:06 PM CDT [facility] Comment:No reference range h as been established. Consider Clinical Correlation. ALB/CREAT RATIO 27 0 - 30 mg/g CRE 12/27/2024 12:06 PM CDT [facility] Urine Non-Phlebotomy Collection / Unknown 12/27/2024 9:45 AM CDT 12/27/2024 11:44 AM CDT us Not On File Provider URINE ORDERABLES Final Resu lt [facility] [address] [place] [address] documented in this encounter Visit Diagnoses Diagnosis Chronic combined systolic (congestive) and diastolic (congestive) heart failure Type 2 diabetes mellitus with diabetic chronic kidney disease (HCC) Type II or unspecified type diabetes mellitus with renal manifestations, not stated as uncontrolled documented in this encounter Care Teams Payment Processor Relationship Specialty Start Date End Date Donte Lucas, [address] [place] [address] PCP - General Physician Forest Fire Control Officer 10/01/24 documented as of this encounter
--- OUTSIDE RECORDS SUMMARY | 2025-01-13 11:04 | XMS_ITS | Clinical Summary ---
Author Organization [facility] [employer] Address [address] [place] [address] Care Team Providers Care Mexican Food Maker Hand Name Role Phone Clement Pinto APRN-ACCOUNT MANAGER EDUCATION Primary Care Provider Source Comments [facility] [employer],non-owned Affiliates and Associated Physician Practices is amultiple site organization consisting of ambulatory clinics and hospital sitesin [place], [place], [place] and [place]. This disclosure is being madepursuant to the Care Everywhere program and may not contain all information available regarding this patient. Last updated 18.[employer] Allergies Active Allergy Reactions Criticality Noted Date [...] by mouth once daily Active HYDROcodone-pankaj taminophen (Tetonia) 5-325 MG tabletIndicatio ns:Post-operati ve state Take [...] on file Legal Sex Female 10:39 AM PUBLIC MESSAGE SERVICE SUPERVISOR Gender Identity Not on file Sexual [...] patient's age to complete this topic [place] [address] [place] [address] [facility] [place] MEDICARE MEDICAID AETNA [facility] MANAGED MEDICARE ADV Care Teams Mexican Food Maker Hand Relationship Specialty Start Date End Date Clement Pinto APRN-ACCOUNT MANAGER EDUCATION [address] [facility] [place] [id number] PCP - General Nurse Practitioner Family 05/13/23
--- OUTSIDE RECORDS SUMMARY | 2025-01-13 11:05 | XMS_ITS | Encounter Summary ---
Author Organization [facility] Address [address] [place] [address] Care Team Providers Care Rubber Thread Spooler Name Role Phone Arnoldo Gary MD Primary Care Provider [phone] Miscellaneous, Not In File Primary Care Provider Unavailable Donte Lucas Primary Care Provider Encounter Details Date Type Department Care Team (Late st Contact Info) Description 09/26/2021 Telephone [facility] Case Management [address] [place] [address] Leydi Bush, RN Social History [...] often do you attend chur ch or muslim services? Never 09/24/2021 Do you belong to any clubs o r organizations such as protestant groups, unions, fraternal or athletic groups, or [...] on file Legal Sex Female 11:01 PM HYDROGEOLOGIST Gender Identity Not on file Sexual Orientation Not on file documented as of this encounter Plan of Treatment Not on file documented as of this encounter Visit Diagnoses Not on filedocumented in this encounter Additional Health Concerns Infection Onset Date Last Indicated Resolved Time COVID: Suspected 09/13/2024 09/13/2024 09/13/2024 2:58 AM HYDROGEOLOGIST Influenza, adult 09/13/2024 09/13/2024 09/28/2024 11:27 AM HYDROGEOLOGIST C. difficile suspected 09/25/2024 09/26/202409/26 4:13 AM HYDROGEOLOGIST documented as of this encounter Care Teams Rubber Thread Spooler Relationship Specialty Start Date End Date Arnoldo Gary MD [address] [place] [address] PCP - General 12/22/17 05/23/23 Miscellaneous, Not In File PCP - General 05/24/23 Donte Lucas PA [address] [place] [address] PCP - General Physician Acquisitions Librarian 08/26/24 documented as of this encounter
--- OUTSIDE RECORDS SUMMARY | 2025-01-13 11:05 | XMS_ITS | Encounter Summary ---
Author Organization [employer] Address [address] [place] [address] Care Team Providers Care Language Arts Teacher Name Role Phone Arnoldo Gary MD Primary Care Provider [phone] Encounter Details Date Type Department Care Team (Late st Contact Info) Description 01/25/2002 Inpatient Historical HIS INPATIENT IN BED Palak Shah MD [address] [place] [address] Say Patricio MD [address] [facility] [address] [place] [address] POISONING-ANTITUSSI VES (Primary Dx) Social History Tobacco Use Types Packs/Day Years Used Date Smoking Tobacco: Never Assessed Comments Unknown Sex and Gender Information Value Date Recorded Sex Assigned at Not on file Legal Sex Female 3:51 AM COMPUTER TYPESETTER Gender Identity Not on file Sexual Orientation [...] documented as of this encounter Care Teams Language Arts Teacher Relationship Specialty Start Date End Date Arnoldo Gary MD [address] [place] [address] PCP - General Internal Medicine 03/27/21 documented as of this encounter
--- OUTSIDE RECORDS SUMMARY | 2025-01-13 11:05 | XMS_ITS | Patient Health Record ---
Author Organization [facility] Address [address] [place] [address] Care Team Providers Care Courtesy Booth Cashier Name Role Phone Clement Ray Primary Care [...] 30 Active Vitamin D (Ergocalciferol) 1.25 MG (63028 UT) Oral for 28 Active Atorvastatin Calcium [...] Problem Status W/U Status Risk Notes Problem 3831195 Hypertensive heart disease with heart failure (I11.0) Active confirmed Well control led in office today. She does note lows at times; will try coreg at 1/2 tab BID. May ultimately have to stop beta rebecca or LOUIE-I. Would like to hold off on midodrine if possible. Problem 123442807 Ischemic cardiomyopathy (I25.5) Active confirmed LVEF 35% on las t echo in our office. Will check echo at [facility] as it has been some time. She will resume lisinopril at low dose and hopefully if compliant with that can get her on some low dose beta rebecca and maybe even Corlanor. She is definitely not an ICD candidate at this point given noncompliance. Again, very akshat discussion today. Problem 436596833 Nonrheumatic tricuspid (valve) insufficiency (I36.1) Active confirmed Problem 780081195 Chronic systolic (congestive) heart failure (I50.22) Active [...] echo at some point next year. 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 Problem 599209359 History of pulmonary embolism (Z86.711) Active confirmed We discussed th e risk of self stopping the Eliquis. will trial Xarelto. Problem 79990621 Cigarette nicotine dependence without complication (F17.210) Active confirmed The patient alamo s continue to smoke. We did spend 3-5 minutes discussing prison cardiovascular benefits of cessation as well as cessation strategies. He/she will call with any cessation needs. Plan Of Treatment Future Test Test Name Order Date Magnesium, Serum 06/05/2021 Basic Metabolic Panel (8) 06/05/2021 Insurance Providers Payer Name Payer Address Payer Phone Subscriber Number Group Number Insured Name Patient Relationship to Insured Coverage Start Date Coverage End Date [employer] [address] [place] [address] [id number] Brooke Garcia Self - patient is the insured Medicaid [place] [address] [place] [address] [id number] Brooke Garcia Self - patient is the insured Medical (General) History Medical History History ICD Code Heart Cath Blood Clots Insomnia Anxiety High Cholesterol Diabetes 2 Surgical History Surgery Date(Month/Year) broken femur 03/27/2021 uterous removal 1999 unsuccessful tuball tonsils 1980 left big toe amputation 2019 eye surgeries Hospitalization History Reason Date(Month/Year) [facility] 03/27/2021 [place] [address]
--- OUTSIDE RECORDS SUMMARY | 2025-01-13 11:05 | XMS_ITS | Continuity of Care Document ---
Author Organization [facility] Address [address] [place] [address] Phone Care Team Providers Care Manager Review Name Role Phone Unavailable Unavailable Unavailable Allergies, [...] ONCE DAILY - Active FreeStyle Carol 2 [place] please issue one reader to monitor constant [...] Providers Copied on Encounter [facility], [address] [place] [address], [address], tel:[phone] *[facility] Primary Care No Information 4 No Information [facility], [address] [place] [address], [address], tel:[phone] *[facility] Primary Care No Information 3 No Information [facility], [address] [place] [address], [address], tel:[phone] *[facility] Primary Care Body mass index [BMI] 32.0-32.9, adult 3 No Information OFFICE/OUTPA TIENT VISIT, EST [facility], [address] [place] [address], [address], tel:[phone] *[facility] Primary Care Diabetes (chief complaint)R efills (chief complaint) Chronic kidney disease, unspecified CKD stageType 2 diabetes mellitus with hyperglycemiaPa in in unspecified joint 3 No Information [facility], [address] [place] [address], [address], [place] tel:[phone] *[facility] Paigeza Primary Care No Information 3 No Information [facility], [address] [place] [address], [address], [place] tel:[phone] *[facility] Freitas Primary Care Abnormal complete blood count 3 No Information OFFICE/OUTPA TIENT VISIT, [facility], [address] [place] [address], [address], [place] tel:[phone] *[facility] Freitas Primary [facility] Surgery clearance (chief complaint) Body mass index [BMI] 29.0-29.9, adultType 2 diabetes mellitus with hyperglycemiaPo lyneuropathyChr onic systolic (congestive) heart failureChronic kidney disease, unspecified CKD stageAt risk for falling 3 No Information [facility], [address] [place] [address], [address], [place] tel:[phone] *Sajan Meredith Primary Care No Information 3 No Information [facility], [address] [place] [address], [address], [place] tel:[phone] *Sajan Meredith Primary Care Polyneuropathy 3 No Information OFFICE/OUTPA TIENT VISIT, [facility], [address] [place] [address], [address], [place] tel:[phone] *Sajan Meredith Primary Care ear pain bilateral (chief complaint)c hronic conditions (chief complaint)e luke (chief complaint)s ore under left breast (chief complaint) Body mass index [BMI] 31.0-31.9, adultCellulitis of breastAcute serous otitis media, bilateralChroni c systolic (congestive) heart failurePolyneur opathyChronic pain of left knee 3 No Information [facility], [address] [place] [address], [address], [place] tel:[phone] *Sajan Meredith [facility] No Information 3 No Information OFFICE/OUTPA TIENT VISIT, [facility], [address] [place] [address], [address], tel:[phone] *Sajan Freitas Primary Care pain (chief complaint)U TI (chief complaint)c hronic conditions (chief complaint) Pain in unspecified jointChronic kidney disease, unspecified CKD stageType 2 diabetes mellitus with hyperglycemiaBo dy mass index [BMI] 45.0-49.9, adultUTIChronic systolic (congestive) heart failureCardiomy opathy, unspecifiedAt risk for falling 3 No Information [facility], [address] [place] [address], [address], tel:[phone] *Sajan Meredith [facility] No Information 3 No Information OFFICE/OUTPA TIENT VISIT, [facility], [address] [place] [address], [address], tel:[phone] *Sajan Freitas Primary Care New Patient (chief [...] and counseling completed Referral Referred To: [address] [place], [place], [phone] Ordered: Referrals: Oncology. [facility]. Evaluate and treat ordered Referral Ordered: tina -Nephrology (related to Type 2 diabetes mellitus with hyperglycemia) ordered Referral Referred To: tina Ordered: Referrals: Nephrology. tina. Location: [facility]. Evaluate and treat ordered Referral Referred To: manda prince Ordered: Referrals: Endocrinology, Diabetes and Metabolism. [facility] [place]. Evaluate and treat ordered Referral Ordered: [facility] -Neurology (related to Polyneuropathy) ordered Referral [facility]erred To: [facility] Ordered: Referrals: Neurology. [facility]. Evaluate and treat ordered Referral Referred To: [facility] [address] [address] [place], [place], [phone] Ordered: Referrals: Orthopedic Surgery. [facility]. Location: [facility]. Evaluate and treat ordered Future Order: Radiol ogy Order US ABDOMEN COMPLETE ([id number]), Ordered on: Ordered Future Order: Lab Order CBC w/AU TO DIFF ([id number]), Ordered on: Ordered Future Order: Lab Order COMPREHE NSIVE METABOLIC PANEL ([id number]), Ordered on: Ordered Future Order: Lab Order GLYCOHEM OGLOBIN (A1c) ([id number]), Ordered on: Ordered Future Order: Lab Order Electroc ardiogram ([id number]), Ordered on: Ordered Future Order: Lab Order LIPID PA KAR ([id number]), Ordered on: Ordered Future Order: Lab Order THYROID STIMULATING HORMONE ([id number]), Ordered on: Ordered Future Order: Lab Order BNP (B-t ype Natriuretic Peptide) ([id number]), Sent on: Sent Future Order: Lab Order COMPREHE NSIVE METABOLIC PANEL ([id number]), Sent on: Sent Future Order: Lab Order CBC w/AU TO DIFF ([id number]), Sent on: Sent Future Order: Lab Order Electroc ardiogram ([id number]), Sent on: Sent Future Order: Radiol ogy Order CHEST 2 VW FRONT & LAT ([id number]), Sent on: Sent Future Order: Radiol ogy Order KNEE, LEFT, (1 OR 2 VIEWS) ([id number]), Ordered on: Ordered History Of Present Illness [...] Patient here today due to possible UTI. chronic conditions 1) Small vess el disease (Chronic.) 2) Chronic kidney disease, unspecified CKD stage (Chronic.) 3) Hx of blood clots (Chronic.) 4) Hx of fracture of leg (Chronic.) 5) Primary insomnia (Chronic.) 6) Mixed hyperlipidemia (Chronic.) 7) Chronic constipation (Chronic.) 8) Post-menopausal (Chronic.) 9) Generalized edema (Chronic.) New Patient Patient here zoey payton as a new patient. Functional Status Date Functional Assessmen t No [...]
--- OUTSIDE RECORDS SUMMARY | 2025-01-13 11:05 | XMS_ITS | Clinical Summary ---
Author Organization [facility] er Address [address] [place] [address] Care Team Providers Care Metal Fence Erector Name Role Phone Donte Lucas Primary Care [...] hematuria 09/22/2021 Coronary artery disease invo lving [place] coronary artery of [place] heart without angina pectoris 09/22/2021 Chronic pain [...] Description 12/01/2024 9:00 AM CDT Office Visit [facility] Cardiology [address] [place] [address] [address] [place] [address] Maggie Schmitz NP Chronic systolic congestive heart failure (HCC) (Primary Dx); Coronary artery disease involving [place] coronary artery of [place] heart without angina pectoris; Lipid screening; Paroxysmal atrial fibrillation (HCC); Urinary retention; Hospital discharge follow-up 11/10/2024 3:00 PM CDT Home Care Visit [address] [address] [address] [place] [address] Danuta Peña, PADMA [facility] INFORMATIONAL VISIT 11/08/2024 Home Care Visit [address] [place] [address] Amanda Mcdonnell, PADMA SN TRIAGE ENCOUNTER 11/07/2024 Orders Only [facility] Cardiology [address] [facility] [address] [place] [address] John Freedman MD 10/28/2024 Orders Only [facility] Hospitalists [address] [place] [address] Trevor Rollins MD from Last [...] drink = 0.6 oz pur e alcohol) [facility] Utilities Answer Date Recorded In the past 12 months has [employer] electric, gas, oil, or water company threatened [...] attend chur ch or congregation services? Never 09/13/2024 Do you belong to any clubs o r organizations such as latter-day groups, unions, fraternal or athletic groups, or [...] were you homeless or living in a custodial (including now)? No 09/13/2024 Personal Safety Answer Date Recorded Have you ever been in or are you currently in a harmful physical or emotional relationship or is someone making you feel afraid or unsafe? Patient unable to answer 09/13/2024 Comments No Sex and Gender Information Value Date Recorded Sex Assigned at Not on file Legal Sex Female 11:01 PM CABLE TENDER Gender Identity Not on file Sexual Orientation Not on file Obstetrics History Last Filed Vital Signs Vital Sign Reading Time Taken Comments Blood Pressure 108/68 12/01/2024 8:58 AM CDT Pulse 90 12/01/2024 8:58 AM CDT Temperature 36.4 C (97.6 F) 10/01/2024 3:07 AM CABLE TENDER Respiratory Rate 18 10/01/2024 3:07 AM CABLE TENDER Oxygen Saturation 94% 12/01/2024 8:58 AM CDT [...] AM CDT EGFR Routine 10/01/2024 6:57 AM CABLE TENDER THYROID FUNCTION CASCADE Routine 09/17/2024 4:10 AM CABLE TENDER HEMOGLOBIN A1C Routine 09/13/2024 1:46 AM CABLE TENDER COLONOSCOPY REPORT 06/07/2014 from Last 3 Months [...] CDT) Anatomical Region Laterality Modality Other us oJhn Freedman MD [facility] PRO CEDURES Final Result * Cardiology Document Scan (10/31/2024 11:58 AM CDT) Anatomical Region Laterality Modality Other us Nolberto Carter MD [facility] CARDIAC SERVICES PROCEDURES F inal Result * Cardiology Document Scan (10/29/2024 11:46 AM CDT) Anatomical Region Laterality Modality Other John Freedman MD [facility] CARDIAC SERVICES PRO CEDURES Final Result * (ABNORMAL) eGFR (10/01/2024 6:57 AM CABLE TENDER) eGFR 54(L) >=60 mL/min/1. 73 m2 Comment: [...] last reviewed 2021. Blood 10/01/2024 6:57 AM CABLE TENDER 10/01/2024 7:30 AM CABLE TENDER us Timothy Augustin MD LAB BLOOD ORDERABLES Final Re sult [facility] [address] [place] [address] * Thyroid Function Robbins (09/17/2024 4:10 AM CABLE TENDER) TSH 1.79 0.30 - 4.20 mcIUnit/mL Blood 09/17/2024 4:10 AM CABLE TENDER 09/17/2024 4:10 AM CABLE TENDER Elidaflorence Schumacher Musa WELCH LAB BLOOD ORDERABLES F inal Result Performing Organization Address [facility] de Phone Number [facility] [address] [place] [address] * (ABNORMAL) Hemoglobin A1c (09/13/2024 1:46 AM CABLE TENDER) Hgb A1C 9.1(H) 4.0 - 5.6 % Estimated Average Glucose 214 mg/dL [facility] Comment: The ADA recommends reporting an estimated Average Glucose (eAG) with all Hemoglobin A1c results using the equation derived from a study of 507 normal and diabetic adults. Minority populations were underrepresented and children were not included. (Diabetes Care 31:9651-2966, 2008). The eAG is not equivalent to a fasting glucose. Blood 09/13/2024 1:46 AM CABLE TENDER 09/13/2024 1:53 AM CABLE TENDER Carl Abreu MD LAB BLOOD ORDERABLES Final R esult Performing Organization Address [facility] Co de Phone Number [facility] [address] [place] [address] * COLONOSCOPY REPORT (06/07/2014) Anatomical Region Laterality Modality Other Narrative 06/07/2014 Ordered by an unspecified provider. Historical Provider GI PROCEDURE ORDERABLES F inal Result from Last 3 Months or Most Recently Relevant to Health Maintenance Insurance [facility] MEDICARE ADVANTAGE [facility] MEDICARE ADVANTAGE IDPA IDPA [facility] MEDICARE ADVANTAGE MEDICARE Advance Directives For more information, please contact: [phone] Documents on File Type Date Recorded Patient Joinery Machinist Expl anation ADVANCE DIRECTIVE 11/10/2024 2:31 PM [...] MILLAN Daughter in Law Health Care Agent [phone] (Mobile ) Care Teams Metal Fence Erector Relationship Specialty Start Date End Date Donte Lucas PA [address] [place] [address] PCP - General Physician Door Serviceman 08/26/24
--- OUTSIDE RECORDS SUMMARY | 2025-01-13 11:05 | XMS_ITS | Continuity of Care Document ---
Author Organization [facility] Address [id number] [place] [address] [address] [place] [address] Phone Care Team Providers Care Store Facility Technician Name Role Phone Puneet CUNNINGHAM MD, Josh Unavailable Unavailab le Procedures Procedure Date POSTOP FOLLOW-UP VISIT CATARACT SURG W/IOL, 1 STAGE CATARACT SURG W/IOL, 1 STAGE OFFICE/OUTPATIENT VISIT, [facility] Advance Directives Directive Yes / No Effective Date File Name No Information Encounters Encounter Description Practice Location Reason(s) For Visit Diagnoses Date Provider Providers Copied on Encounter [facility], [address], [place], [place], [address], tel:[phone] OPH CONSULT CARLOS MENDENHALL No Information 4 Puneet Moreno. [address], [address], [place], [place], [address] , [place]. tel:[phone] Referring Provider: Josh Teixeira MD P, [address], [place], [address] . tel:[phone] [facility], [address], [place], [place], [address], [place] tel:[phone] [facility] [place] No Information 4 Puneet Moreno. [address], [address], [place], [place], [address] , [place]. [phone] Referring Provider: Josh Watkins, [address], [place], [address] . tel:[phone] [facility], [address], [place], [place], [address], tel:[phone] 78 [facility] No Information 3 Puneet Moreno. [address], [address], [place], [place], [address] , [place]. tel:[phone] Referring Provider: Josh Teixeira MD P, [address], [place], [address] . tel:[phone] OFFICE/OUTPAT IENT VISIT, [facility], [address], [place], [place], [address], tel:[phone] [facility]PH CONSULT [facility] No Information 3 Puneet Moreno. [address], [address], [place], [place], [address] , [place]. tel:[phone] Referring Provider: Josh Watkins, [address], [place], [address] . tel:[phone] Family History Family Member Type Diagnosis Age [...]
--- OUTSIDE RECORDS SUMMARY | 2025-01-13 11:05 | XMS_ITS | Continuity of Care Document ---
Author Organization [facility] Address [address] [place] [address] Phone Care Team Providers Care Marker Shipments Name Role Phone Arnulfo Farrell Unavailable Unavailable Advance Directives Directive Yes / No Effective Date File Name No Information Encounters Encounter Description Practice Location Reason(s) For Visit Diagnoses Date Provider Providers Copied on Encounter [facility], [address] [place] [address], Formerly [facility], tel:[phone] *[facility] No Information Bud Arredondo. [address] [place] [address], Formerly [facility], [facility], . tel:[phone] Family History Family Member Type Diagnosis Age [...]
--- OUTSIDE RECORDS SUMMARY | 2025-01-13 11:05 | XMS_ITS | Patient Health Record ---
Author Organization [facility] Address [address] [place] [address] [place] [address] Care Team Providers Care Automotive Engineering Teacher Name Role Phone Dr Arnoldo Gary Primary Care Provider Unavailab Alexi Gutierrez Unavailable [phone] REASON FOR REFERRAL No Information PLAN OF TREATMENT No Information Insurance Providers Payer Name Payer Address Payer Phone Subscriber Number Group Number Insured Name Patient Relationship to Insured Coverage Start Date Coverage End Date Home [facility] Health Plan [address] [place] [phone] [id number] Brooke Garcia Self - patient is the insured 2
--- OUTSIDE RECORDS SUMMARY | 2025-01-13 11:05 | XMS_ITS | Clinical Summary ---
Author Organization [facility] Address [address] [facility] [place] [address] Phone Care Team Providers Care Hogshead Mat Assembler Name Role Phone Arnoldo Gary MD Primary Care Provider [phone] Allergies Active Allergy Reactions Criticality Noted Date [...] migh t be different from the original. BOWLING PIN SETTERS INSTALLER: DR. 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 Problem Noted Date Diagnosed [...] fraction) Sinus tachycardia Ischemic cardiomyopathy CAD in [place] artery Asthma GERD (gastroesophageal reflux disease) Critical [...] on file Legal Sex Female 3:51 AM PERFORMANCE REPORTER Gender Identity Not on file Sexual Orientation [...] 2) 2024 Medical Devices Implanted Type Area Director Of Outreach Device Identifier Shelf Expiration Date Model / Serial / Lot Tfna Fenestrated Screw 90mm Implanted:Qty: 1 on 03/27/2021 by Bob Deras MD at [facility] Screw Left: Hip [employer] 02/06/2031 04.038.19 0 S / / [id number] Screw Loc Stardrv 5x62mm Strl 04.005.552s - Sload 23 Implanted:Qty: 1 on 03/27/2021 by Bob Deras MD at [facility] Screw Left: Hip [employer]AT[employer] 04.005.55 2 S / LOAD 03/14/21 11mm/125deg Ti Js Tfna 380mm/Left Implanted:Qty: 1 on 03/27/2021 by Bob Deras MD at [facility] Left: Hip [employer] [facility] 01/07/2030 04.037.12 9 S / / [id number] Description:All Synthes comp onents are processed on requisition, [id number]. Procedures Procedure Name Priority Date/Time Associated Diagnosis Comments HEMOGLOBIN A1C Stat 04/25/2022 3:22 AM CDT LIPID PANEL Routine 04/20/2021 5:30 AM CDT MICROALBUMIN/CREATIN INE RATIO, RANDOM UR Routine 06/26/2014 Diabetes mellitus ([facility]) from Last 3 Months or Most Recently Relevant to Health Maintenance Results * (ABNORMAL) HEMOGLOBIN A1C (04/25/2022 3:22 AM CDT) HEMOGLOBIN A1C 8.2(H) <=5.6 % 04/25/2022 4:13 AM CDT [facility] [place] EST. AVG GLUCOSE, A1C 189 mg/dL 04/25/2022 4:13 AM CDT [facility] Blood Venipuncture / Unknown 04/25/2022 3:22 AM CDT 04/25/2022 3:43 AM CDT Narrative [facility] - 04/25/2022 4:13 AM CDT HGB A1C INTERPRETATION NORMAL: <5.7% PRE-DIABETES: 5.7 - 6.4% DIABETES: 6.5% OR GREATER us Alphonse Samson MD CHEMISTRY ORDERABLES Final Result [facility] CLIA # [id number] [address] [place] [address] * (ABNORMAL) LIPID PANEL (04/20/2021 5:30 AM CDT) CHOLESTEROL 166 <200 mg/dL 04/20/2021 6:55 AM CDT [facility] TRIGLYCERIDE 83 <150 mg/dL 04/20/2021 6:55 AM T [facility] HDL 40 40 - 59 mg/dL 04/20/2021 6:55 AM T [facility] LDL CALCULATED 109(H) <100 mg/dL 04/20/2021 6:55 AM T [facility] NON-HDL CHOLESTEROL 126 <130 mg/dL 04/20/2021 6:55 AM T [facility] Blood Venipuncture / Unknown 04/20/2021 5:30 AM CDT 04/20/2021 6:21 AM CDT Narrative [facility] - 04/20/2021 [...] Reference Ranges for Lipid Panels (NCEP/AMA) . [facility] Tawana Kelly MD CHEMISTRY ORDERABLES Final Result [facility] [employer] [facility]# [id number] [address] [facility] [place] [id number] * MICROALBUMIN/CREATININE RATIO, RANDOM UR (06/26/2014) Urine specimen (specimen) Orquidea Delgado MD URINE ORDERABLES Final Result [facility] # [id number] [address] [place] [address] from Last 3 Months or Most Recently Relevant to Health Maintenance Additional Health Concerns Infection Onset Date Last Indicated MRSA Comment:hx MRSA documented per 12/22/17 infectious disease screening form - Cierra Becker RN 12/24/2017 05/09/[address] [place] [address] MEDICAID [facility] [id number] MEDIC[facility] Advance Directives For more information, please contact: [phone] * Full Code (Latest Code Status on File) Date Activated Date Inactivated Comments 04/25/2022 2:46 AM 04/29/2022 5:00 PM * Full Code Date Activated Date Inactivated Comments 05/08/2021 5:35 PM 05/24/2021 5:02 PM * Full Code Date Activated Date Inactivated Comments 03/27/2021 7:30 AM 05/08/2021 5:20 PM Care Teams Hogshead Mat Assembler Relationship Specialty Start Date End Date Arnoldo Gary MD [address] [place] [phone] PCP - General Internal Medicine 03/27/21
--- OUTSIDE RECORDS SUMMARY | 2025-01-13 11:05 | XMS_ITS | Patient Health Record ---
Author Organization [facility] [place] [place] Address [address] [facility] [address] [place], [place] [address] Care Team Providers Care Home Appliance Tech Name Role Phone Arnoldo Gary Unavailable Unavailable [...] confirmed Type II diabetes mellitus without complication (016131379) Problem Spondylosis without myelopathy or radiculopathy, lumbar region (M47.816) Active confirmed Lumbosacral spondylosis without myelopathy (31846868) Problem Spondylosis without myelopathy or radiculopathy, lumbosacral region (M47.817) Active confirmed Lumbosacral spondylosis without myelopathy (disorder) (15862936) PLAN OF TREATMENT Pending Test Test Name [...]
--- OUTSIDE RECORDS SUMMARY | 2025-01-13 11:05 | XMS_ITS | Referral Summary ---
Author Organization [facility] er Address [address] [place] [address] Care Team Providers Care Sorter Lumber Straightener Name Role Phone Donte Lucas Primary Care Provider Encounters Date Type Department Care Team Description 12/01/2024 9:00 AM CDT Office Visit [facility] Medical Group Cardiology [address] [place] [address] [address] [place] [address] Maggie Schmitz NP Chronic systolic congestive heart failure (HCC) (Primary Dx); Coronary artery disease involving [place] coronary artery of [place] heart without angina pectoris; Lipid screening; Paroxysmal atrial fibrillation (HCC); Urinary retention; Hospital discharge follow-up 11/10/2024 3:00 PM CDT Home Care Visit [address] [place] [address] Danuta Peña, PADMA [facility] INFORMATIONAL VISIT 11/08/2024 Home Care Visit [address] [place] [address] Amanda Mcdonnell RN SN TRIAGE ENCOUNTER 11/07/2024 Orders Only [facility] Medical Group Cardiology [address] [facility] [address] [place] [address] John Freedman MD 10/28/2024 Orders Only [facility] Hospitalists [address] [place] [address] Trevor Rollins MD from Last [...] hematuria 09/22/2021 Coronary artery disease invo lving [place] coronary artery of [place] heart without angina pectoris 09/22/2021 Chronic pain [...] drink = 0.6 oz pur e alcohol) [facility] Utilities Answer Date Recorded In the [...] often do you attend chur ch or jewish services? Never 09/13/2024 Do you belong to any clubs o r organizations such as holiness groups, unions, fraternal or athletic groups, or [...] were you homeless or living in a mcfp (including now)? No 09/13/2024 Personal Safety Answer Date Recorded Have you ever been in or are you currently in a harmful physical or emotional relationship or is someone making you feel afraid or unsafe? Patient unable to answer 09/13/2024 Comments No Sex and Gender Information Value Date Recorded Sex Assigned at Not on file Legal Sex Female 11:01 PM HAMMER FITTER Gender Identity Not on file Sexual Orientation Not on file Last Filed Vital Signs Vital Sign Reading Time Taken Comments Blood Pressure 108/68 12/01/2024 8:58 AM CDT Pulse 90 12/01/2024 8:58 AM CDT Temperature 36.4 C (97.6 F) 10/01/2024 3:07 AM HAMMER FITTER Respiratory Rate 18 10/01/2024 3:07 AM HAMMER FITTER Oxygen Saturation 94% 12/01/2024 8:58 AM CDT [...] AM CDT EGFR Routine 10/01/2024 6:57 AM HAMMER FITTER THYROID FUNCTION CASCADE Routine 09/17/2024 4:10 AM HAMMER FITTER HEMOGLOBIN A1C Routine 09/13/2024 1:46 AM HAMMER FITTER COLONOSCOPY REPORT 06/07/2014 from Last 3 Months [...] Result * (ABNORMAL) eGFR (10/01/2024 6:57 AM HAMMER FITTER) eGFR 54(L) >=60 mL/min/1. 73 m2 Comment: [...] last reviewed 2021. Blood 10/01/2024 6:57 AM HAMMER FITTER 10/01/2024 7:30 AM HAMMER FITTER Timothy Augustin MD LAB BLOOD ORDERABLES Final Re sult Performing Organization Address [facility] Co de Phone Number [facility] [address] Department of [place], [place] [phone] * Thyroid Function [place] (09/17/2024 4:10 AM HAMMER FITTER) TSH 1.79 0.30 - 4.20 mcIUnit/mL Blood 09/17/2024 4:10 AM HAMMER FITTER 09/17/2024 4:10 AM HAMMER FITTER Elida Vigil DO LAB BLOOD ORDERABLES F inal Result Performing Organization Address [facility] Phone Number [facility] [address] Department [place], [place] [id number] * (ABNORMAL) Hemoglobin A1c (09/13/2024 1:46 AM HAMMER FITTER) Hgb A1C 9.1(H) 4.0 - 5.6 % Estimated Average Glucose 214 mg/dL [facility] Comment: The ADA recommends reporting an estimated Average Glucose (eAG) with all Hemoglobin A1c results using the equation derived from a study of 507 normal and diabetic adults. Minority populations were underrepresented and children were not included. (Diabetes Care 31:2955-3137, 2008). The eAG is not equivalent to a fasting glucose. Blood 09/13/2024 1:46 AM HAMMER FITTER 09/13/2024 1:53 AM HAMMER FITTER Carl Abreu MD LAB BLOOD ORDERABLES Final R esult Performing Organization Address [facility] Co de Phone Number [facility] [address] Department [place], [place] [phone] * COLONOSCOPY REPORT (06/07/2014) Anatomical Region Laterality Modality Other Narrative 06/07/2014 Ordered by an unspecified provider. us Historical Provider MD PRAJAAPTI PROCEDURE ORDERABLES F inal Result from Last 3 Months or Most Recently Relevant to Health Maintenance Insurance [facility] MEDICARE ADVANTAGE [facility] MEDICARE Address: [address] [address] [place] [address] [facility] HEALTH [facility] HEALTH PLAN [facility] DIVISION [facility] MEDICARE ADVANTAGE IDPA IDPA [facility] MEDICARE ADVANTAGE [facility] MEDICARE Address: [address] [address] [place] [address] MEDICARE Advance Directives For more information, please contact: [phone] Documents on File Type Date Recorded Patient Mash Preparatory Operator Expl anation ADVANCE DIRECTIVE 11/10/2024 2:31 [...] MILLAN Daughter in Law Health Care Agent [phone] (Mobile ) Care Teams Sorter Lumber Straightener Relationship Specialty Start Date End Date Donte Lucas PA [address] [place] [address] PCP - General Physician Lodging Facilities Attendant 08/26/24
--- OUTSIDE RECORDS SUMMARY | 2025-01-13 11:05 | XMS_ITS | Clinical Summary ---
Author Organization [facility] Address [address] [place] [address] Phone Care Team Providers Care Communications Equipment Installer Name Role Phone Donte Lucas [facility] Primary Care Provider [phone] Allergies Active Allergy Reactions Criticality Noted Date [...] Response Take 40 mg by mouth daily. [id number] Active midodrine (PROAMATINE) 2.5 MG Tablet Take 2.5 mg by mouth 3 times daily. [id number] Active sacubitril-valsa rtan (ENTRESTO) 24-26 MG Tablet Take 1 Tablet by mouth 2 times daily. take one tab twce daily 12/21/19 25 Active levoFLOXacin (LEVAQUIN) 500 MG Tablet Take 500 mg by mouth daily. 12/09/19 25 025 Encounters Date Type Department Care Team Description 01/10/2025 9:00 AM CDT Home Care Visit [facility] [address] [address] Mai Bass, RN SN - OASIS DISCHARGE 01/03/2025 1:00 PM CDT Home Care Visit [address] [address] Kenzie Gonzalez LPN SN - HOME VISIT 12/29/2024 12:00 PM CDT Home Care Visit [address] [address] Kathrin Mcmullen OT OT - DISCIPLINE DISCHARGE 12/28/2024 1:00 PM CDT Home Care Visit [address] [address] Maggie Murguia, PT PT - DISCIPLINE DISCHARGE 12/28/[address] [address] Marilyn Pa I, RN Outpatient PT Referral 12/27/2024 12:30 PM CDT Home Care Visit [address] [address] Brooke Burt, MELANIE RESCHEDULED MISSED VISIT 12/27/2024 9:00 AM CDT Home Care Visit [address] [address] Mai Bass, RN SN - HOME VISIT 12/27/2024 Home Care Visit [address] [address] Maggie Murguia, PT TELEPHONE ENCOUNTER 12/27/2024 Lab Requisition [facility] [address] [place] [id number] Lorenza Inman MD Provider, Not On File Chronic combined systolic (congestive) and diastolic (congestive) heart failure; Type 2 diabetes mellitus with diabetic chronic kidney disease (HCC) 12/26/2024 10:30 AM CDT Home Care Visit [address] [address] Elisa Pollack, PIECE DYER PT - HOME VISIT 12/23/2024 12:00 PM CDT Home Care Visit [address] [address] Kathie Rolle, MELANIE OT - HOME VISIT 12/23/2024 Home Care Visit [address] [address] Renetta Hubbard LPN CASE COMMUNICATION 12/23/2024 Travel 12/21/2024 11:00 AM CDT Home Care Visit [address] [address] Kenzie Gonzalez LPN SN - HOME VISIT 12/21/2024 11:00 AM CDT Home Care Visit [address] [address] Elisa Pollack, PIECE DYER PT - HOME VISIT 12/21/2024 Travel 12/20/2024 12:15 PM CDT Home Care Visit [address] [address] Kathrin Mcmullen OT OT - MCCARTHY SUPERVISORY VISIT 12/19/2024 9:00 AM CDT Home Care Visit [address] [address] Elisa Pollack, PIECE DYER PT - HOME VISIT 12/19/2024 Travel 12/15/2024 12:30 PM CDT Home Care Visit [address] [address] Brooke Burt SOAP BOILER OT - HOME VISIT 2024 5:30 PM CDT Home Care Visit [address] [address] Elisa Pollack, PIECE DYER PT - HOME VISIT 2024 9:30 AM CDT Home Care Visit [address] [address] Mai Bass, RN SN - HOME VISIT 2024 Travel 12/13/2024 2:30 PM CDT Home Care Visit [address] [address] Elisa Pollack, PIECE DYER PT - HOME VISIT 12/13/2024 11:00 AM CDT Home Care Visit [address] [address] Brooke Burt, MELANIE OT - HOME VISIT 12/13/2024 Home Care Visit [address] [address] Brooke Burt, SOAP BOILER CASE COMMUNICATION 12/09/2024 Travel 12/08/2024 10:00 AM CDT Home Care Visit [address] [address] Brooke Burt, SOAP BOILER OT - HOME VISIT 12/08/2024 Home Care Visit [address] [address] Brooke Burt, SOAP BOILER TELEPHONE ENCOUNTER 12/07/2024 11:00 AM CDT Home Care Visit [address] [address] Mai Bass, RN SN - HOME VISIT 12/06/2024 12:00 PM CDT Home Care Visit [address] [address] Maggie Murguia, PT PT - INITIAL EVALUATION 12/06/2024 12:00 PM CDT Home Care Visit [address] [address] Kathrin Mcmullen OT OT - INITIAL EVALUATION 12/04/2024 Plan of Care Documentation [address] [address] 12/02/2024 11:00 AM CDT Home Care Visit [address] [address] Brooke Burt, SOAP BOILER OT - HOME VISIT 12/02/2024 9:00 AM CDT Home Care Visit [address] [address] Mai Bass, RN SN - OASIS RECERTIFICATION 11/30/2024 12:00 PM CDT Home Care Visit [address] [address] Elisa Pollack, PIECE DYER PT - HOME VISIT 11/30/2024 11:00 AM CDT Home Care Visit [address] [address] Brooke Burt, SOAP BOILER OT - HOME VISIT 11/29/2024 12:00 PM CDT Home Care Visit [address] [address] Elisa Pollack, PIECE DYER PT - HOME VISIT 11/29/2024 12:00 PM CDT Home Care Visit [address] [address] Mai Bass, RN SN - PRIORITY VISIT 11/29/2024 Travel 11/25/2024 10:30 AM CDT Home Care Visit [address] [address] Brooke Burt, MELANIE OT - HOME VISIT 11/23/2024 2:30 PM CDT Home Care Visit [address] [address] Mai Bass, RN SN - PRIORITY VISIT 11/23/2024 11:00 AM CDT Home Care Visit [address] [address] Elisa Pollack, PIECE DYER PT - HOME VISIT 11/22/2024 12:00 PM CDT Home Care Visit [address] [address] Brooke Burt, SOAP BOILER OT - HOME VISIT 11/21/2024 1:30 PM CDT Home Care Visit [address] [address] Mai Bass, RN SN - PRIORITY VISIT 11/21/2024 1:00 PM CDT Home Care Visit [address] [address] Elisa Pollack, PIECE DYER PT - HOME VISIT 11/21/2024 Travel 11/17/2024 11:15 AM CDT Home Care Visit [address] [address] Kathrin Mcmullen, OT OT - INITIAL EVALUATION 11/16/2024 1:00 PM CDT Home Care Visit [address] [address] Elisa Pollack, PIECE DYER PT - HOME VISIT 11/14/2024 11:00 AM CDT Home Care Visit [address] [address] Maggie Murguia, PT PT - INITIAL EVALUATION 11/14/2024 9:00 AM CDT Home Care Visit [address] [address] Mai Bass, RN SN - PRIORITY VISIT 11/11/2024 9:00 AM CDT Home Care Visit [facility] [address] Mai Bass, RN SN - OASIS RESUMPTION OF CARE Discharge Disposition: Discharged to home or Selfcare 11/11/2024 Plan of Care Documentation [address] [address] 11/08/[address] [address] Urszula Sparks, RN HOME HEALTH 11/03/2024 Home Care Visit [address] [address] Nancy Bradley RN SN - OASIS TRANSFER W/OUT DC 10/28/2024 9:30 AM CDT Home Care Visit [address] [address] Mai Bass RN SN - PRIORITY VISIT 10/27/2024 10:00 AM CDT Home Care Visit [address] [address] Elisa Pollack, PIECE DYER PT - HOME VISIT 10/25/2024 2:30 PM CDT Home Care Visit [address] [address] Deepika Ely, AUTOMOBILE MECHANIC HELPER-SPEECH LANGUAGE PATHOLOGIST AUTOMOBILE MECHANIC HELPER - INITIAL EVALUATION 10/25/2024 1:30 PM CDT Home Care Visit [address] [address] Maggie Murguia, PT PT - INITIAL EVALUATION 10/25/2024 12:30 PM CDT Home Care Visit [address] [address] Kathrin Mcmullen OT OT - INITIAL EVALUATION 10/24/2024 2:00 AM CDT Home Care Visit [address] [address] Mai Bass RN SN - OASIS RESUMPTION OF CARE 10/24/2024 Plan of Care Documentation [address] [address] 10/24/[address] [address] Kami Mccoy RN 10/23/[address] [address] Deepika Keith, RN Appointment 10/21/[address] [address] Ariana Callahan, RN visits 10/19/2024 Home Care Visit [address] [address] Mehnaz Hilario RN SN - OASIS TRANSFER W/OUT DC 10/14/2024 11:00 AM LIBRARY MANAGER Home Care Visit [address] [address] Brooke Burt OTA OT - HOME VISIT 10/14/2024 11:00 AM LIBRARY MANAGER Home Care Visit [address] [address] Kathleen Clement PTA PT - HOME VISIT 10/13/2024 1:30 PM LIBRARY MANAGER Home Care Visit [address] [address] Mai Bass RN SN - PRIORITY VISIT 10/13/2024 10:00 AM LIBRARY MANAGER Home Care Visit [facility] [address] Mercedes Pham, HOT METAL CAR OPERATOR HOT METAL CAR OPERATOR - INITIAL EVALUATION from Last 3 Months Social History Tobacco Use Types Packs/Day Years Used Date Smoking Tobacco: Never Assessed Comments Unknown Sex and Gender Information Value Date Recorded Sex Assigned at Not on file Legal Sex Female 1:58 PM LIBRARY MANAGER Gender Identity Not on file Sexual Orientation Not on file Last Filed Vital Signs Vital Sign Reading Time Taken Comments Blood Pressure 122/68 01/10/2025 9:32 AM CDT Pulse 78 01/10/2025 9:32 AM CDT Temperature 37.1 C (98.7 F) 01/10/2025 9:32 AM CDT Respiratory Rate 18 01/10/2025 9:32 AM CDT Oxygen Saturation 93% 01/10/2025 9:32 AM CDT Inhaled Oxygen Concentration - - Weight 97.5 kg (215 lb) 01/10/2025 9:32 AM CDT Height 165.1 cm (5' 5) 12/06/2024 12:17 PM CDT Body Mass Index 35.78 12/06/2024 12:17 PM CDT Plan of Treatment Not on file [...] 1.59 mg/dL 12/27/2024 12:06 PM CDT [facility] Comment:No reference range h as been established. Consider Clinical Correlation. CREATININE URINE 58.7 mg/dL 12/28/19 12:06 PM CD[address] [facility] Comment:No reference range h as been established. Consider Clinical Correlation. ALB/CREAT RATIO 27 0 - 30 mg/g CRE 12/27/2024 12:06 PM CDT [facility] Urine Non-Phlebotomy Collection / Unknown 12/27/2024 9:45 AM CDT 12/27/2024 11:44 AM CDT us Not On File Provider URINE ORDERABLES Final Resu lt [facility] [address] [place] [address] from Last 3 Months Insurance MEDICAID [place] MEDICARE C [employer] Advance Directives * Full Code (Latest Code Status on File) Date Activated Date Inactivated Comments 10/06/2024 10:06 PM Care Teams Communications Equipment Installer Relationship Specialty Start Date End Date Donte Lucas, PAC [address] [place], [place] [id number] PCP - General Physician Talent Management Specialist 10/01/24
--- OUTSIDE RECORDS SUMMARY | 2025-01-13 11:05 | XMS_ITS | Patient Health Record ---
Author Organization [facility] Address [address] [facility] [address] [place] [address] Care Team Providers Care Career Development Consultant Name Role Phone Gilma Chiu Unavailable [phone] Reason For Referral No Information Medications Medication [...] Status W/U Status Risk Notes Problem Hyperkalemia (28155398) Hyperkalemia (E87.5) Active confirmed Problem Heart failure (82359121) Heart failure, unspecified (I50.9) Active confirmed Problem Hypotension (85147805) Hypotension, unspecified (I95.9) Active confirmed Problem Chronic kidney disease stage 2 (360578209) Chronic kidney disease, stage 2 (mild) (N18.2) Active confirmed Problem Retention of urine (250399830) Retention of urine, unspecified (R33.9) Active confirmed Problem Type II diabetes mellitus without complication (126450243) Type 2 diabetes mellitus without complication, unspecified whether termite control representative insulin use (E11.9) Active confirmed Plan Of Treatment No Information
--- NOTE | 2025-01-13 11:12 | ECG_ITS ---
Test Date: 2025-01-13 11:47:52 Measurements Intervals [place] Rate: 105 P: 55 OK: 151 QRS: -8 QRSD: 88 T: 106 QT: 329 QTc: 435 Interpretive Statements SINUS TACHYCARDIA LOW QRS VOLTAGE IN PRECORDIAL LEADS LEFT VENTRICULAR HYPERTROPHY WITH ST-T CHANGE CONSIDER ANTERIOR INFARCT, AGE INDETERMINATE CONSIDER INFERIOR INFARCT, AGE INDETERMINATE ABNORMAL ECG Compared to ECG 12/19/2024 17:13:13 NO SIGNIFICANT CHANGE Electronically Signed On 01-13-2025 11:50:24 CDT by Qamar Gill D.O.
--- NOTE | 2025-01-13 11:16 | ED.URI ---
HPI - URI/Sore Throat General Chief Complaint: Upper Respiratory Infection Stated Complaint: cough Time Seen by Provider: 01/13/25 11:11 Source: patient Mode of arrival: ambulatory Limitations: no limitations History of Present Illness HPI Narrative: patient is a 49-year-old female with a cough for the past week. She does have a chronic cough but this is their different kind of cough per patient. This is a wet cough with yellow and clear phlegm. She has been having shortness of breath and left-sided discomfort of the chest only with movement or breathing. The chest discomfort occurs when she coughs. Significantly 2 months ago she had a left pleural effusion that was drained twice. She was at [facility]. Patient has prior PE DVT situation and taking Xarelto. Patient has history of CHF and COPD. She also uses 2 L of nasal cannula eye at bedtime. MD elicited complaint: cough and nasal congestion Pertinent past history: COPD and other ( GERD, hyperlipidemia, PE DVT, diabetes 2, orthostatic hypotension) Onset (ago): week(s) ( 1) Consistency: constant Severity: moderate Pain scale (0-10): 4 Description of mucous: clear, watery and yellow Able to tolerate fluids by mouth: Yes Exacerbating factors: exertion, speaking and deep breaths Relieving factors: nothing Context: recent hospitalization ( left chest pleural effusion with drainage) Associated symptoms: nasal congestion and cough Treatments prior to arrival: none Related Data Home Medications ?Medication ?Instructions ?Recorded ?Confirmed ?Last Taken ?Type atorvastatin 80 mg tablet 80 mg PO DAILY 07/26/23 10/29/24 10/28/24 History bumetanide 1 mg tablet See Rx Instructions .Route .COMPLEX 07/26/23 10/29/24 10/28/24 History celecoxib 200 mg capsule 200 mg PO BID 07/26/23 10/29/24 10/28/24 History insulin detemir U-100 100 unit/mL 46 unit subcut DAILY 07/26/23 10/29/24 10/28/24 History subcutaneous solution (Levemir U-100 Insulin) insulin lispro 100 unit/mL See Rx Instructions .Route .COMPLEX 07/26/23 10/29/24 10/28/24 History subcutaneous solution (Humalog U-100 Insulin) metoprolol succinate 25 mg 25 mg PO DAILY 07/26/23 10/29/24 10/28/24 History tablet,extended release 24 hr ezetimibe 10 mg tablet 10 mg PO DAILY 10/29/23 10/29/24 10/28/24 History gabapentin 400 mg capsule See Rx Instructions .Route .COMPLEX 10/29/23 10/29/24 10/28/24 History albuterol sulfate 5 mg/mL(0.5 %) 2.5 mg inhalation Q6H PRN 10/30/24 10/30/24 Unknown History solution for nebulization shortness of breath or wheezing cyclobenzaprine 10 mg tablet 10 mg PO TID 10/30/24 10/30/24 Unknown History famotidine 20 mg tablet 20 mg PO Q12H 10/30/24 10/30/24 Unknown History hydrocodone 10 mg-acetaminophen 1 tablet PO BID PRN pain 10/30/24 10/30/24 Unknown History 325 mg tablet plecanatide 3 mg tablet (Trulance) 3 mg PO DAILY 10/30/24 10/30/24 Unknown History potassium chloride 20 mEq 20 meq PO DAILY 10/30/24 10/30/24 Unknown History tablet,extended release(part/cryst) tirzepatide 2.5 mg/0.5 mL 2.5 mg subcut WEEKLY 10/30/24 10/30/24 10/27/24 History subcutaneous pen injector (Mounjaro) Allergies Allergy/AdvReac Type Severity Reaction Status Date / Time cephalexin (From Keflex) Allergy Unknown Unknown Verified 12/06/24 16:36 codeine Allergy Unknown Verified 12/06/24 16:36 erythromycin base Allergy Unknown Verified 12/06/24 16:36 Review of Systems Review of Systems: All systems reviewed & are unremarkable except as noted in HPI and below Constitutional: Constitutional: Reports no additional constitutional complaints Eyes: Eyes: Reports no additional eye complaints ENT: Reports system reviewed and no additional complaints, except as documented Cardiovascular: Cardiovascular: Reports no additional cardiovascular complaints Respiratory: Respiratory: Reports no additional respiratory complaints Gastrointestinal: Gastrointestinal: Reports no additional gastrointestinal complaints Genitourinary: Genitourinary: Reports no additional female genitourinary complaints Musculoskeletal: Musculoskeletal: Reports no additional musculoskeletal complaints Integumentary/Breasts: Skin/Breast: Reports system reviewed and no additional complaints, except as docu Neurologic: Reports system reviewed and no additional complaints, except as documented Psychiatric: Psychiatric: Reports no additional psychiatric complaints Endocrine: Endocrine: Reports no additional endocrine complaints Hematologic/Lymphatic: Hematologic/Lymphatic: Reports no additional hematologic/lymphatic complaints Allergic/Immunologic: Allergic/Immunologic: Reports no additional allergic/immunologic complaints [facility] Past Medical History Medical History TIA (transient ischemic attack) Dyslipidemia Diabetes mellitus Social History Social History Smoking packs per day: 1 Smoking cigarettes per day: 20.0 Smoking status: Current every day smoker Alcohol intake: never Substance use: never Do You Feel Safe in your Home?: Yes Lack of Transportation: No Lack of Food: Never True Current Housing: I Have Housing Concerned About Future Housing: No Difficulty Paying Gas/Electric Bills: No Difficulty Paying for Meds: No Currently Unemployed: No Education: High School Diploma/GED Difficulty w/ Childcare or Family Care: No Spiritual care concerns: No Exam Const: General: ill appearing Nutritional Appearance: well nourished Orientation/consciousness: patient oriented x3 Limitations: no limitations HENMT: Head: normal to inspection Ears: external ears normal Face/Nose/Sinus: Normal external nose present Eyes: Conjunctivae: conjunctivae normal Pupils: Equal, round and reactive pupils present EOM: EOMs intact bilaterally Neck: Neck: normal visual inspection Chest: Chest palpation & inspection: normal inspection of the chest Resp: Effort & Inspection: normal respiratory effort and not labored Auscultation: not clear to auscultation bilaterally, crackles ( left lung), no rales, rhonchi ( left lung), no wheezes, breath sounds present and diminished lung sounds ( left lung) Cardio: Rate: regular rate Rhythm: regular rhythm Heart sounds: no murmurs GI: Inspection: non-distended GI Palp: Yes Soft to palpation, No Tenderness to palpation present (GI) and No Guarding due to palpation present (GI) Auscultation: normal bowel sounds : General: Yes bladder normal to palpation Back/Spine/Pelvis: Back: no CVA tenderness Skin: General skin exam: normal color Rashes: no rashes Wounds: no wounds Neuro: General: patient oriented x3 Cranial nerves: Yes Nystagmus not present Speech: normal speech Extrem: General: normal to inspection Psych: Mental Status: mental status grossly normal Affect: normal affect Attitude: cooperative Course Vital Signs Vital signs: Vital Signs Temperature 36.6 C 01/13/25 11:03 Pulse Rate 106 H 01/13/25 11:03 Respiratory Rate 16 01/13/25 11:03 Blood Pressure 100/59 L 01/13/25 11:03 Pulse Oximetry 97 01/13/25 11:03 Oxygen Delivery Room Air 01/13/25 11:03 Temperature 36.6 C 01/13/25 12:39 Pulse Rate 107 H 01/13/25 13:46 Respiratory Rate 20 01/13/25 13:46 Blood Pressure 124/64 01/13/25 13:46 Pulse Oximetry 94 01/13/25 13:46 Oxygen Delivery Room Air 01/13/25 13:46 MDM - URI/Sore Throat MDM Narrative Medical decision making narrative: patient is a 49-year-old female with recent left lung issues and now here with a cough and left-sided discomfort of the chest only with movement or breathing. We will do a pulmonary workup at this time. To note, she also has history of DVT /PE and is on Xarelto. patient has a baseline CKD and she did not want to be admitted or kept any longer at this time for the slight bump in her CKD to an LOLIS. She did get 1 L of fluid. Lab Data Attestation: I reviewed the patient's lab results. 01/13/25 11:38 01/13/25 13:59 Labs: Lab Results 01/13/25 01/13/25 01/13/25 Range/Units 11:16 11:38 13:59 WBC 7.7 (4.8-10.8) K/mm3 RBC 4.50 (4.20-5.40) M/mm3 Hgb 12.0 (12.0-15.0) g/dL Hct 41.4 (35.0-49.0) % MCV 92.0 (78.0-102.0) fL MCH 26.7 L (27.0-31.0) pg MCHC 29.0 L (32-36) g/dL RDW 15.8 H (11.6-14.4) % Plt Count 170 (150-420) K/mm3 MPV 11.1 (9.2-11.8) fl Immature Gran % (Auto) 0.4 H (0.0-0.0) % Neut % (Auto) 67.1 (50.0-70.0) % Lymph % (Auto) 21.6 (18.0-42.0) % [place] % (Auto) 7.5 (2.0-11.0) % Eos % (Auto) 2.5 (1.0-6.0) % Baso % (Auto) 0.9 (0.0-1.0) % Lymph # (Auto) 1.67 (1.10-4.50) K/mm3 [place] # (Auto) 0.58 (0.10-0.90) K/mm3 Eos # (Auto) 0.19 (0.02-0.50) K/mm3 Baso # (Auto) 0.07 (0.00-0.10) K/mm3 Abs Immat Gran (auto) 0.03 H (0.00-0.00) K/mm3 Absolute Neuts (auto) 5.20 (1.70-7.20) K/mm3 Absolute Nucleated RBC 0.00 (0.00-0.00) K/mm3 Nucleated RBC % 0.0 (0-0.0) % D-Dimer 0.40 (0.19-0.50) mg/L Sodium 134 L 137 (137-145) mmol/L Potassium 6.8 H* 4.9 (3.4-5.0) mmol/L Chloride 104 107 (98-107) mmol/L Carbon Dioxide 22 22 (22-30) mmol/L Anion Gap 8 8 (4-12) mmol/L BUN 83 H D 76 H (7-17) mg/dL Creatinine 1.84 H 1.82 H (0.7-1.0) mg/dL Estim Creat Clear Calc 38 39 ml/min Estimated GFR 29 L 29 L (59 - ) Glucose 207 H 223 H (65-110) mg/dL Calculated Osmolality 309 H 313 H (285-295) mOsm/kg Lactic Acid 1.8 (0.4-2.0) mmol/L Calcium 8.8 8.9 (8.4-10.2) mg/dL Total Bilirubin 0.8 (0.2-1.3) mg/dL AST 40 H (14-36) U/L ALT 18 (6-35) U/L Alkaline Phosphatase 173 H (38-126) U/L Troponin I 0.013 (0.000-0.034) ng/mL NT-Pro-B Natriuret Pep 1340 H (19.9-100) pg/mL Total Protein 8.1 (6.3-8.2) g/dL Albumin 4.0 (3.5-5.1) g/dL Influenza A (RT-PCR) Negative (Negative) Influenza B (RT-PCR) Negative (Negative) RSV (RT-PCR) Negative (Negative) SARS-CoV-2 RNA (RT-PCR) Negative (Negative) Imaging Data Attestation: I personally reviewed and interpreted this imaging study as follows: Radiologist's impression: Chest x-ray is negative for acute process ECG Data EKG #1: Attestation: I personally reviewed and interpreted this ECG as follows: ECG completion date: 01/13/25 ECG completion time: 12:04 EKG Interpretation: tachycardia ( One hundred five), sinus rhythm, no ectopy, non-specific ST changes, normal QRS, normal QT and NL axis Discharge Plan Discharge Clinical Impression: LOLIS (acute kidney injury), Acute hyperkalemia, Bronchitis, Acute dehydration, Pleurisy Patient Disposition: Home Condition: Stable Instructions: Antibiotic Form, Acute Kidney Injury (DC), Acute Bronchitis (ED) Additional Instructions: please follow-up with the primary doctor in the next week. Please have your kidney function and potassium level recheck at follow-up. Monitor your diabetes closely. Please hold your potassium from 3 times a day to 1 time a day. Patient Language: Frisian Prescriptions: New levofloxacin 750 mg tablet 750 mg PO DAILY 5 Days Qty: 5 0RF prednisone 20 mg tablet 20 mg PO DAILY 3 Days Qty: 3 0RF No Action gabapentin 400 mg capsule See Rx Instructions .ROUTE .COMPLEX Rx Instructions: Take 1 capsule in the morning Take 1 capsule in the afternoon Take 3 capsules at bedtime ezetimibe 10 mg tablet 10 mg PO DAILY celecoxib 200 mg Capsule 200 mg PO BID atorvastatin 80 mg Tablet 80 mg PO DAILY bumetanide 1 mg Tablet See Rx Instructions .ROUTE .COMPLEX Patient Comments: 2 mg three times a day Rx Instructions: 2 mg three times a day metoprolol succinate 25 mg Tablet Extended Release 24 Hr 25 mg PO DAILY insulin lispro [Humalog U-100 Insulin] 100 unit/mL Solution See Rx Instructions .ROUTE .COMPLEX Rx Instructions: 8 units + SSI TID c meals Levemir U-100 Insulin 100 unit/mL Solution 46 unit SUBCUT DAILY docusate sodium [Colace] 100 mg capsule 100 mg PO BID PRN (Reason: constipation) Qty: 14 0RF albuterol sulfate 5 mg/mL solution for nebulization 2.5 mg inhalation Q6H PRN (Reason: shortness of breath or wheezing) cyclobenzaprine 10 mg tablet 10 mg PO TID famotidine 20 mg tablet 20 mg PO Q12H hydrocodone-acetaminophen 10-325 mg tablet 1 tablet PO BID PRN (Reason: pain) Patient Comments: Usually just takes at bedtime. Trulance 3 mg tablet 3 mg PO DAILY potassium chloride 20 mEq tablet,ER particles/crystals 20 meq PO DAILY Mounjaro 2.5 mg/0.5 mL pen injector 2.5 mg SUBCUT WEEKLY Patient Comments: Takes on . polysaccharide iron complex 150 mg iron Capsule 150 mg PO DAILY@0800 30 Days Qty: 30 1RF pantoprazole 40 mg Tablet,Delayed Release (Dr/Ec) 40 mg PO QAM 30 Days Qty: 30 0RF midodrine 2.5 mg Tablet 2.5 mg PO TID 30 Days Qty: 90 0RF Xarelto 15 mg Tablet 15 mg PO EVENING 30 Days Qty: 30 1RF Follow-up/Referrals: Lance,MELLISSA Kent [Primary Care Provider] - Time of Disposition: 14:52
--- OUTSIDE RECORDS SUMMARY | 2025-01-13 11:42 | XMS_ITS | Continuity of Care Document ---
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 Name Role Phone Unavailable Unavailable Unavailable [...] ONCE DAILY - Active FreeStyle Carol 2 Villanueva please issue one reader to monitor constant [...] Providers Copied on Encounter [facility], [address] [place] [address], [address], tel:[phone] *[facility] No Information 4 No Information [facility], [address] [place] [address], [address], tel:[phone] *[facility] No Information 3 No Information [facility], [address] [place] [address], [address], tel:[phone] *[facility] Body mass index [BMI] 32.0-32.9, adult 3 No Information OFFICE/OUTPA TIENT VISIT, EST [facility], [address] [place] [address], [address], tel:[phone] *[facility] Diabetes (chief complaint)R efills (chief complaint) Chronic kidney disease, unspecified CKD stageType 2 diabetes mellitus with hyperglycemiaPa in in unspecified joint 3 No Information [facility], [address] [place] [address], [address], [place] tel:[phone] *[facility] No Information 3 No Information [facility], [address] [place] [address], [address], [place] tel:[phone] *[facility] Abnormal complete blood count 3 No Information OFFICE/OUTPA TIENT VISIT, [facility], [address] [place] [address], [address], [place] tel:[phone] *[facility] Surgery clearance (chief complaint) Body mass index [BMI] 29.0-29.9, adultType 2 diabetes mellitus with hyperglycemiaPo lyneuropathyChr onic systolic (congestive) heart failureChronic kidney disease, unspecified CKD stageAt risk for falling 3 No Information [facility], [address] [place] [address], [address], [place] tel:[phone] *[facility] No Information 3 No Information [facility], [address] [place] [address], [address], [place] tel:[phone] *[facility] Polyneuropathy 3 No Information OFFICE/OUTPA TIENT VISIT, [facility], [address] [place] [address], [address], [place] tel:[phone] *[facility] [facility] ear pain bilateral (chief complaint)c hronic conditions (chief complaint)e luke (chief complaint)s ore under left breast (chief complaint) Body mass index [BMI] 31.0-31.9, adultCellulitis of breastAcute serous otitis media, bilateralChroni c systolic (congestive) heart failurePolyneur opathyChronic pain of left knee 3 No Information [facility], [address] [place] [address], [address], [place] tel:[phone] *[facility] [place] [facility] No Information 3 No Information OFFICE/OUTPA TIENT VISIT, [facility], [address] [place] [address], [address], tel:[phone] *[facility] pain (chief complaint)U TI (chief complaint)c hronic conditions (chief complaint) Pain in unspecified jointChronic kidney disease, unspecified CKD stageType 2 diabetes mellitus with hyperglycemiaBo dy mass index [BMI] 45.0-49.9, adultUTIChronic systolic (congestive) heart failureCardiomy opathy, unspecifiedAt risk for falling 3 No Information [facility], [address] [place] [address], [address], tel:[phone] *[facility] No Information 3 No Information OFFICE/OUTPA TIENT VISIT, [facility], [address] [place] [address], [address], tel:[phone] *[facility] New Patient (chief [...] guidance, and counseling completed Referral Referred To: [address] [place], [place], [phone] Ordered: Referrals: Oncology. [facility]. Evaluate and treat ordered Referral Ordered: tina -Nephrology (related to Type 2 diabetes mellitus with hyperglycemia) ordered Referral Referred To: tina Ordered: Referrals: Nephrology. tina. Location: [place]. Evaluate and treat ordered Referral Referred To: manda prince Ordered: Referrals: Endocrinology, Diabetes and Metabolism. [facility]. Evaluate and treat ordered Referral Ordered: [facility] -Neurology (related to Polyneuropathy) ordered Referral Referred To: [facility] Ordered: Referrals: Neurology. [facility]. Evaluate and treat ordered Referral Referred To: [facility] [address] [address] [place], [place], [phone] Ordered: Referrals: Orthopedic Surgery. [facility]. Location: [facility]. Evaluate and treat ordered Future Order: Radiol ogy Order US ABDOMEN COMPLETE ([id number]), Ordered on: Ordered Future Order: Lab Order CBC w/AU TO DIFF ([id number]), Ordered on: Ordered Future Order: Lab Order COMPREHE NSIVE METABOLIC PANEL ([id number]), Ordered on: Ordered Future Order: Lab Order GLYCOHEM OGLOBIN (A1c) ([id number]), Ordered on: Ordered Future Order: Lab Order Electroc ardiogram ([id number]), Ordered on: Ordered Future Order: Lab Order LIPID PA KAR ([id number]), Ordered on: Ordered Future Order: Lab Order THYROID STIMULATING HORMONE ([id number]), Ordered on: Ordered Future Order: Lab Order BNP (B-t ype Natriuretic Peptide) ([id number]), Sent on: Sent Future Order: Lab Order COMPREHE NSIVE METABOLIC PANEL ([id number]), Sent on: Sent Future Order: Lab Order CBC w/AU TO DIFF ([id number]), Sent on: Sent Future Order: Lab Order Electroc ardiogram ([id number]), Sent on: Sent Future Order: Radiol ogy Order CHEST 2 VW FRONT & LAT ([id number]), Sent on: Sent Future Order: Radiol ogy Order KNEE, LEFT, (1 OR 2 VIEWS) ([id number]), Ordered on: Ordered History Of Present Illness Encounter Date Complaint History Of Prese nt Illness Refills Patient here zoey payton for med refills. Diabetes Risk factors inc lude age > 50 years. Risk factors excluded are depression, smoking and steroid use. Comorbid conditions include stroke. Surgery clearance Patient here t josué for medical clearance. ear pain bilateral edema sore under left breast chronic conditions UTI [...]
--- OUTSIDE RECORDS SUMMARY | 2025-01-13 11:42 | XMS_ITS | Clinical Summary ---
Author Organization [facility] Address [address] [place] [address] Phone Care Team Providers Care Bank Examiner Name Role Phone Donte Lucas [facility] Primary Care Provider [phone] Allergies Active Allergy Reactions Criticality Noted Date [...] Response Take 40 mg by mouth daily. [id number] Active midodrine (PROAMATINE) 2.5 MG Tablet Take 2.5 mg by mouth 3 times daily. [id number] Active sacubitril-valsa rtan (ENTRESTO) 24-26 MG Tablet Take 1 Tablet by mouth 2 times daily. take one tab twce daily 12/21/19 25 Active levoFLOXacin (LEVAQUIN) 500 MG Tablet Take 500 mg by mouth daily. 12/09/19 25 025 Encounters Date Type Department Care Team Description 01/10/2025 9:00 AM CDT Home Care Visit [facility] [address] [address] Mai Bass, RN SN - OASIS DISCHARGE 01/03/2025 1:00 PM CDT Home Care Visit [address] [address] Kenzie Gonzalez LPN SN - HOME VISIT 12/29/2024 12:00 PM CDT Home Care Visit [address] [address] Kathrin Mcmullen OT OT - DISCIPLINE DISCHARGE 12/28/2024 1:00 PM CDT Home Care Visit [address] [address] Maggie Murguia, PT PT - DISCIPLINE DISCHARGE 12/28/[address] [address] Marilyn Pa I, RN Outpatient PT Referral 12/27/2024 12:30 PM CDT Home Care Visit [address] [address] Brooke Burt, MELANIE RESCHEDULED MISSED VISIT 12/27/2024 9:00 AM CDT Home Care Visit [address] [address] Mai Bass, RN SN - HOME VISIT 12/27/2024 Home Care Visit [address] [address] Maggie Murguia, PT TELEPHONE ENCOUNTER 12/27/2024 Lab Requisition [facility] [address] [place] [id number] Lorenza Inman MD Provider, Not On File Chronic combined systolic (congestive) and diastolic (congestive) heart failure; Type 2 diabetes mellitus with diabetic chronic kidney disease (HCC) 12/26/2024 10:30 AM CDT Home Care Visit [address] [address] Elisa Pollack, ARCHITECTURAL ASSOCIATE PT - HOME VISIT 12/23/2024 12:00 PM CDT Home Care Visit [address] [address] Kathie Rolle, MELANIE OT - HOME VISIT 12/23/2024 Home Care Visit [address] [address] Renetta Hubbard LPN CASE COMMUNICATION 12/23/2024 Travel 12/21/2024 11:00 AM CDT Home Care Visit [address] [address] Kenzie Gonzalez LPN SN - HOME VISIT 12/21/2024 11:00 AM CDT Home Care Visit [address] [address] Elisa Pollack, ARCHITECTURAL ASSOCIATE PT - HOME VISIT 12/21/2024 Travel 12/20/2024 12:15 PM CDT Home Care Visit [address] [address] Kathrin Mcmullen OT OT - MCCARTHY SUPERVISORY VISIT 12/19/2024 9:00 AM CDT Home Care Visit [address] [address] Elisa Pollack, ARCHITECTURAL ASSOCIATE PT - HOME VISIT 12/19/2024 Travel 12/15/2024 12:30 PM CDT Home Care Visit [address] [address] Brooke Burt BYPRODUCTS EXTRACTOR OT - HOME VISIT 2024 5:30 PM CDT Home Care Visit [address] [address] Elisa Pollack, ARCHITECTURAL ASSOCIATE PT - HOME VISIT 2024 9:30 AM CDT Home Care Visit [address] [address] Mai Bass, RN SN - HOME VISIT 2024 Travel 12/13/2024 2:30 PM CDT Home Care Visit [address] [address] Elisa Pollack, ARCHITECTURAL ASSOCIATE PT - HOME VISIT 12/13/2024 11:00 AM CDT Home Care Visit [address] [address] Brooke Burt, MELANIE OT - HOME VISIT 12/13/2024 Home Care Visit [address] [address] Brooke Burt, BYPRODUCTS EXTRACTOR CASE COMMUNICATION 12/09/2024 Travel 12/08/2024 10:00 AM CDT Home Care Visit [address] [address] Brooke Butr, BYPRODUCTS EXTRACTOR OT - HOME VISIT 12/08/2024 Home Care Visit [address] [address] Brooke Burt, BYPRODUCTS EXTRACTOR TELEPHONE ENCOUNTER 12/07/2024 11:00 AM CDT Home Care Visit [address] [address] Mai Bass, RN SN - HOME VISIT 12/06/2024 12:00 PM CDT Home Care Visit [address] [address] Maggie Murguia, PT PT - INITIAL EVALUATION 12/06/2024 12:00 PM CDT Home Care Visit [address] [address] Kathrin Mcmullen OT OT - INITIAL EVALUATION 12/04/2024 Plan of Care Documentation [address] [address] 12/02/2024 11:00 AM CDT Home Care Visit [address] [address] Brooke Burt, BYPRODUCTS EXTRACTOR OT - HOME VISIT 12/02/2024 9:00 AM CDT Home Care Visit [address] [address] Mai Bass, RN SN - OASIS RECERTIFICATION 11/30/2024 12:00 PM CDT Home Care Visit [address] [address] Elisa Pollack, ARCHITECTURAL ASSOCIATE PT - HOME VISIT 11/30/2024 11:00 AM CDT Home Care Visit [address] [address] Brooke Burt, BYPRODUCTS EXTRACTOR OT - HOME VISIT 11/29/2024 12:00 PM CDT Home Care Visit [address] [address] Elisa Pollack, ARCHITECTURAL ASSOCIATE PT - HOME VISIT 11/29/2024 12:00 PM CDT Home Care Visit [address] [address] Mai Bass, RN SN - PRIORITY VISIT 11/29/2024 Travel 11/25/2024 10:30 AM CDT Home Care Visit [address] [address] Brooke Burt, MELANIE OT - HOME VISIT 11/23/2024 2:30 PM CDT Home Care Visit [address] [address] Mai Bass, RN SN - PRIORITY VISIT 11/23/2024 11:00 AM CDT Home Care Visit [address] [address] Elisa Pollack, ARCHITECTURAL ASSOCIATE PT - HOME VISIT 11/22/2024 12:00 PM CDT Home Care Visit [address] [address] Brooke Burt, BYPRODUCTS EXTRACTOR OT - HOME VISIT 11/21/2024 1:30 PM CDT Home Care Visit [address] [address] Mai Bass, RN SN - PRIORITY VISIT 11/21/2024 1:00 PM CDT Home Care Visit [address] [address] Elisa Pollack, ARCHITECTURAL ASSOCIATE PT - HOME VISIT 11/21/2024 Travel 11/17/2024 11:15 AM CDT Home Care Visit [address] [address] Kathrin Mcmullen, OT OT - INITIAL EVALUATION 11/16/2024 1:00 PM CDT Home Care Visit [address] [address] Elisa Pollack, ARCHITECTURAL ASSOCIATE PT - HOME VISIT 11/14/2024 11:00 AM CDT Home Care Visit [address] [address] Maggie Murguia, PT PT - INITIAL EVALUATION 11/14/2024 9:00 AM CDT Home Care Visit [address] [address] Mai Bass, RN SN - PRIORITY VISIT 11/11/2024 9:00 AM CDT Home Care Visit [address] [address] Mai Bass, RN SN - OASIS RESUMPTION OF CARE Discharge Disposition: Discharged to home or Selfcare 11/11/2024 Plan of Care Documentation [address] [address] 11/08/[address] [address] Urszula Sparks, RN HOME HEALTH 11/03/2024 Home Care Visit [address] [address] Nancy Bradley RN SN - OASIS TRANSFER W/OUT DC 10/28/2024 9:30 AM CDT Home Care Visit [address] [address] Mai Bass RN SN - PRIORITY VISIT 10/27/2024 10:00 AM CDT Home Care Visit [address] [address] Elisa Pollack, ARCHITECTURAL ASSOCIATE PT - HOME VISIT 10/25/2024 2:30 PM CDT Home Care Visit [address] [address] Deepika Ely, CHILD SUPPORT INVESTIGATOR-SPEECH LANGUAGE PATHOLOGIST CHILD SUPPORT INVESTIGATOR - INITIAL EVALUATION 10/25/2024 1:30 PM CDT Home Care Visit [address] [address] Maggie Murguia, PT PT - INITIAL EVALUATION 10/25/2024 12:30 PM CDT Home Care Visit [address] [address] Kathrin Mcmullen OT OT - INITIAL EVALUATION 10/24/2024 2:00 AM CDT Home Care Visit [address] [address] Mai Bass RN SN - OASIS RESUMPTION OF CARE 10/24/2024 Plan of Care Documentation [address] [address] 10/24/[address] [address] Kami Mccoy RN 10/23/[address] [address] Deepika Keith, RN Appointment 10/21/[address] [address] Ariana Callahan, RN visits 10/19/2024 Home Care Visit [address] [address] Mehnaz Hilario RN SN - OASIS TRANSFER W/OUT DC 10/14/2024 11:00 AM EMT/PARAMEDIC Home Care Visit [address] [address] Brooke Burt OTA OT - HOME VISIT 10/14/2024 11:00 AM EMT/PARAMEDIC Home Care Visit [address] [address] Kathleen Clement PTA PT - HOME VISIT 10/13/2024 1:30 PM EMT/PARAMEDIC Home Care Visit [address] [address] Mai Bass RN SN - PRIORITY VISIT 10/13/2024 10:00 AM EMT/PARAMEDIC Home Care Visit [address] [address] Mercedes Pham, MARINE INSULATOR MARINE INSULATOR - INITIAL EVALUATION from Last 3 Months Social History Tobacco Use Types Packs/Day Years Used Date Smoking Tobacco: Never Assessed Comments Unknown Sex and Gender Information Value Date Recorded Sex Assigned at Not on file Legal Sex Female 1:58 PM EMT/PARAMEDIC Gender Identity Not on file Sexual Orientation [...] 30 mg/g CRE 12/27/2024 12:06 PM CDT [facility] Urine Non-Phlebotomy Collection / Unknown 12/27/2024 9:45 AM CDT 12/27/2024 11:44 AM CDT us Not On File Provider URINE ORDERABLES Final Resu lt [facility] [address] [place] [address] from Last 3 Months Insurance MEDICAID [place] MEDIC[place] [address] Advance Directives * Full Code (Latest Code Status on File) Date Activated Date Inactivated Comments 10/06/2024 10:06 PM Care Teams Bank Examiner Relationship Specialty Start Date End Date Donte Lucas, PAC [address] [place], [place] [id number] PCP - General Physician Boring Machine Feeder 10/01/24
--- OUTSIDE RECORDS SUMMARY | 2025-01-13 11:42 | XMS_ITS | Encounter Summary ---
Author Organization [facility] Address [address] [place] [address] Care Team Providers Care Vat Cleaner Name Role Phone Arnoldo Gary MD Primary Care Provider [phone] Miscellaneous, Not In File Primary Care Provider Unavailable Donte Lucas Primary Care Provider Encounter Details Date Type Department Care Team (Late st Contact Info) Description 09/26/2021 Telephone [facility] Case Management [address] [place] [address] Leydi Bush, RN Social History [...] often do you attend chur ch or latter-day services? Never 09/24/2021 Do you belong to [...] on file Legal Sex Female 11:01 PM CATALYST OPERATOR Gender Identity Not on file Sexual Orientation Not on file documented as of this encounter Plan of Treatment Not on file documented as of this encounter Visit Diagnoses Not on filedocumented in this encounter Additional Health Concerns Infection Onset Date Last Indicated Resolved Time COVID: Suspected 09/13/2024 09/13/2024 09/13/2024 2:58 AM CATALYST OPERATOR Influenza, adult 09/13/2024 09/13/2024 09/28/2024 11:27 AM CATALYST OPERATOR C. difficile suspected 09/25/2024 09/26/202409/26 4:13 AM CATALYST OPERATOR documented as of this encounter Care Teams Vat Cleaner Relationship Specialty Start Date End Date Arnoldo Gary MD [address] [place] [address] PCP - General 12/22/17 05/23/23 Miscellaneous, Not In File PCP - General 05/24/23 Donte Lucas PA [address] [place] [address] PCP - General Physician Tile Setter Supervisor 08/26/24 documented as of this encounter
--- OUTSIDE RECORDS SUMMARY | 2025-01-13 11:42 | XMS_ITS | Encounter Summary ---
Author Organization [employer] Address [address] [place] [address] Care Team Providers Care Quality Measurement Specialist Name Role Phone Arnoldo Gary MD Primary Care Provider [phone] Encounter Details Date Type Department Care Team (Late st Contact Info) Description 01/25/2002 Inpatient Historical [facility] INPATIENT IN BED Palak Shah MD [address] [place] [address] Say Patricio MD [address] [facility] [address] [place] [address] POISONING-ANTITUSSI VES (Primary Dx) Social History Tobacco Use Types Packs/Day Years Used Date Smoking Tobacco: Never Assessed Comments Unknown Sex and Gender Information Value Date Recorded Sex Assigned at Not on file Legal Sex Female 3:51 AM NUCLEAR FUEL ENRICHMENT TECHNICIAN Gender Identity Not on file Sexual [...] documented as of this encounter Care Teams Quality Measurement Specialist Relationship Specialty Start Date End Date Arnoldo Gary MD [address] [place] [address] PCP - General Internal Medicine 03/27/21 documented as of this encounter
--- OUTSIDE RECORDS SUMMARY | 2025-01-13 11:42 | XMS_ITS | Referral Summary ---
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 angina pectoris; Lipid screening; Paroxysmal atrial fibrillation (HCC); Urinary retention; Hospital discharge follow-up 11/10/2024 3:00 PM CDT Home Care Visit [address] [place] [address] Danuta Peña, [facility] INFORMATIONAL VISIT 11/08/2024 Home Care Visit [address] [place] [address] Amanda Mcdonnell RN SN TRIAGE ENCOUNTER 11/07/2024 Orders Only [facility] Medical [facility] Cardiology [address] [facility] [address] [place] [address] John Freedman MD 10/28/2024 Orders Only [facility] Hospitalists [address] [place] [address] Trevor Rollins MD from Last [...] hematuria 09/22/2021 Coronary artery disease invo lving rosebud coronary artery of rosebud heart without angina pectoris 09/22/2021 Chronic pain [...] often do you attend chur ch or yazidism services? Never 09/13/2024 Do you [...] any time in the past 12 m [facility], were you homeless or living [...] file Legal Sex Female 11:01 PM HVAC TECHNICIAN Gender Identity Not on file Sexual Orientation Not on file Last Filed Vital Signs Vital Sign Reading Time Taken Comments Blood Pressure 108/68 12/01/2024 8:58 AM CDT Pulse 90 12/01/2024 8:58 AM CDT Temperature 36.4 C (97.6 F) 10/01/2024 3:07 AM HVAC TECHNICIAN Respiratory Rate 18 10/01/2024 3:07 AM HVAC TECHNICIAN Oxygen Saturation 94% 12/01/2024 8:58 AM CDT [...] AM CDT EGFR Routine 10/01/2024 6:57 AM HVAC TECHNICIAN THYROID FUNCTION CASCADE Routine 09/17/2024 4:10 AM HVAC TECHNICIAN HEMOGLOBIN A1C Routine 09/13/2024 1:46 AM HVAC TECHNICIAN COLONOSCOPY REPORT 06/07/2014 from Last 3 [...] Result * (ABNORMAL) eGFR (10/01/2024 6:57 AM HVAC TECHNICIAN) eGFR 54(L) >=60 mL/min/1. 73 m2 Comment: [...] last reviewed 2021. Blood 10/01/2024 6:57 AM HVAC TECHNICIAN 10/01/2024 7:30 AM HVAC TECHNICIAN Timothy Augustin MD LAB BLOOD ORDERABLES Final Re sult Performing Organization Address [facility] Co de Phone Number [facility] [address] Department of [place], [place] [id number] * Thyroid Function [place] (09/17/2024 4:10 AM HVAC TECHNICIAN) TSH 1.79 0.30 - 4.20 mcIUnit/mL Blood 09/17/2024 4:10 AM HVAC TECHNICIAN 09/17/2024 4:10 AM HVAC TECHNICIAN Elida Vigil DO LAB BLOOD ORDERABLES F inal Result Performing Organization Address [facility] Phone Number [facility] [address] Department [place], [place] [phone] * (ABNORMAL) Hemoglobin A1c (09/13/2024 1:46 AM HVAC TECHNICIAN) Hgb A1C 9.1(H) 4.0 - 5.6 % Estimated Average Glucose 214 mg/dL [facility] Comment: The ADA recommends reporting an estimated Average Glucose (eAG) with all Hemoglobin A1c results using the equation derived from a study of 507 normal and diabetic adults. Minority populations were underrepresented and children were not included. (Diabetes Care 31:8604-1806, 2008). The eAG is not equivalent to a fasting glucose. Blood 09/13/2024 1:46 AM HVAC TECHNICIAN 09/13/2024 1:53 AM HVAC TECHNICIAN Carl Abreu MD LAB BLOOD ORDERABLES Final R esult Performing Organization Address [facility] Co de Phone Number [facility] [address] Department [place], [place] [phone] * COLONOSCOPY REPORT (06/07/2014) Anatomical Region Laterality Modality Other Narrative 06/07/2014 Ordered by an unspecified provider. us Historical Provider MD PRAJAPATI PROCEDURE ORDERABLES F inal Result from Last 3 Months or Most Recently Relevant to Health Maintenance Insurance [facility] MEDICARE ADVANT[facility] Address: [address] [address] [place] [address] [facility] HEALTH [facility] HEALTH PLAN [facility] MEDICARE ADVANTAGE IDPA IDPA [facility] MEDICARE ADVANTAGE [facility] Address: [address] [address] [place] [address] MEDICARE Advance Directives For more information, please contact: [phone] Documents on File Type Date Recorded Patient Ball Thread Machine Tender Expl anation ADVANCE DIRECTIVE 11/10/2024 2:31 PM [...] MILLAN Daughter in Law Health Care Agent [phone] (Mobile ) Care Teams Wet Inspector Optical Glass Relationship Specialty Start Date End Date Donte Lucas PA [address] [place] [address] PCP - General Physician Pitch Worker 08/26/24
--- OUTSIDE RECORDS SUMMARY | 2025-01-13 11:42 | XMS_ITS | Encounter Summary ---
Author Organization [facility] Address [address] [place] [address] Phone Care Team Providers Care Interactive Multimedia Designer Name Role Phone Donte Lucas [facility] Primary Care Provider [phone] Encounter Details Date Type Department Care Team (Late st Contact Info) Description 12/27/2024 Lab Requisition [facility] Laboratory Services [address] [place] [address] Lorenza Inman MD [address] [place] [id number] Provider, Not On File OR Chronic combined systolic (congestive) and diastolic (congestive) heart failure; Type 2 diabetes mellitus with diabetic chronic kidney disease (HCC) Social History Tobacco Use Types Packs/Day Years Used Date Smoking Tobacco: Never Assessed Comments Unknown Sex and Gender Information Value Date Recorded Sex Assigned at Not on file Legal Sex Female 1:58 PM SWEETBREAD TRIMMER Gender Identity Not on file Sexual [...] MICROALBUMIN 1.59 mg/dL 12/27/2024 12:06 PM CDT [facility] Comment:No reference range h as been established. Consider Clinical Correlation. CREATININE URINE 58.7 mg/dL 12/28/19 12:06 PM CDT [facility] Comment:No reference range h as been established. Consider Clinical Correlation. ALB/CREAT RATIO 27 0 - 30 mg/g CRE 12/27/2024 12:06 PM CDT [facility] Urine Non-Phlebotomy Collection / Unknown 12/27/2024 9:45 AM CDT 12/27/2024 11:44 AM CDT us Not On File Provider URINE ORDERABLES Final Resu lt [facility] [address] [place] [address] documented in this encounter Visit Diagnoses Diagnosis Chronic combined systolic (congestive) and diastolic (congestive) heart failure Type 2 diabetes mellitus with diabetic chronic kidney disease (HCC) Type II or unspecified type diabetes mellitus with renal manifestations, not stated as uncontrolled documented in this encounter Care Teams Interactive Multimedia Designer Relationship Specialty Start Date End Date Donte Lucas, [address] [place] [address] PCP - General Physician Medical Transcriber 10/01/24 documented as of this encounter
--- OUTSIDE RECORDS SUMMARY | 2025-01-13 11:42 | XMS_ITS | Continuity of Care Document ---
Author Organization [facility] Address [address] [place] [address] Phone Care Team Providers Care Ep Tech Name Role Phone Arnulfo Farrell Unavailable Unavailable Advance Directives Directive Yes / No Effective Date File Name No Information Encounters Encounter Description Practice Location Reason(s) For Visit Diagnoses Date Provider Providers Copied on Encounter [facility], [address] [place] [address], [facility], tel:[phone] *[facility] No Information Bud Arredondo. [address] [place] [address], [facility], . tel:[phone] Family History Family Member Type Diagnosis Age [...]
--- OUTSIDE RECORDS SUMMARY | 2025-01-13 11:42 | XMS_ITS | Continuity of Care Document ---
Author Organization [facility] Address [id number] [place] [address] [address] [place] [address] Phone Care Team Providers Care Pickle Maker Name Role Phone Puneet CUNNINGHAM MD, Josh Unavailable Unavailab le Procedures Procedure Date POSTOP FOLLOW-UP VISIT CATARACT SURG W/IOL, 1 STAGE CATARACT SURG W/IOL, 1 STAGE OFFICE/OUTPATIENT VISIT, [facility] Advance Directives Directive Yes / No Effective Date File Name No Information Encounters Encounter Description Practice Location Reason(s) For Visit Diagnoses Date Provider Providers Copied on Encounter [facility], [address], [place], [place], [id number], tel:[phone] [facility] No Information 4 Puneet Moreno. [address], [place], [place], [address] , [place]. tel:[phone] Referring Provider: Josh Teixeira MD P, [address], [place], [address] . tel:[phone] [facility], [address], [place], [place], [id number], [place] tel:[phone] 78 [facility] [place] No Information 4 Puneet Moreno. [address], [place], [place], [address] , [place]. [phone] Referring Provider: Josh Watkins, [address], [place], [address] . tel:[phone] [facility], [address], [place], [place], [address], tel:[phone] 78 [facility] No Information 3 Puneet Moreno. [address], [address], [place], [place], [address] , [place]. tel:[phone] Referring Provider: Josh Teixeira MD P, [address], [place], [address] . tel:[phone] OFFICE/OUTPAT IENT VISIT, [facility], [address], [place], [place], [address], tel:[phone] [facility] No Information 3 Puneet Moreno. [address], [place], [place], [address] , [place]. tel:[phone] Referring Provider: Josh Watkins, [address], [place], [address] . tel:[phone] Family History Family Member Type Diagnosis Age [...]
--- OUTSIDE RECORDS SUMMARY | 2025-01-13 11:42 | XMS_ITS | Clinical Summary ---
Author Organization [facility] er Address [address] [place] [address] Care Team Providers Care Acid Crane Operator Name Role Phone Donte Lucas Primary Care [...] hematuria 09/22/2021 Coronary artery disease invo lving [place] coronary artery of [place] heart without angina pectoris 09/22/2021 Chronic pain [...] Description 12/01/2024 9:00 AM CDT Office Visit [facility] Cardiology [address] [place] [address] [address] [place] [address] Maggie Schmitz NP Chronic systolic congestive heart failure (HCC) (Primary Dx); Coronary artery disease involving salt river coronary artery of salt river heart without angina pectoris; Lipid screening; Paroxysmal atrial fibrillation (HCC); Urinary retention; Hospital discharge follow-up 11/10/2024 3:00 PM CDT Home Care Visit [address] [address] [address] [place] [address] Danuta Peña, PADMA [facility] INFORMATIONAL VISIT 11/08/2024 Home Care Visit [address] [place] [address] Amanda Mcdonnell, PADMA SN TRIAGE ENCOUNTER 11/07/2024 Orders Only [facility] Cardiology [address] [facility] [address] [place] [address] John Freedman MD 10/28/2024 Orders Only [facility] [address] [place] [address] Trevor Rollins MD from Last [...] = 0.6 oz pur e alcohol) [facility] Utilities Answer Date Recorded In the past 12 months has [employer] electric, gas, oil, or water company threatened [...] often do you attend chur ch or sabianist services? Never 09/13/2024 Do you belong to [...] on file Legal Sex Female 11:01 PM EXHAUST MACHINE OPERATOR Gender Identity Not on file Sexual Orientation Not on file Obstetrics History Last Filed Vital Signs Vital Sign Reading Time Taken Comments Blood Pressure 108/68 12/01/2024 8:58 AM CDT Pulse 90 12/01/2024 8:58 AM CDT Temperature 36.4 C (97.6 F) 10/01/2024 3:07 AM EXHAUST MACHINE OPERATOR Respiratory Rate 18 10/01/2024 3:07 AM EXHAUST MACHINE OPERATOR Oxygen Saturation 94% 12/01/2024 8:58 AM CDT [...] AM CDT EGFR Routine 10/01/2024 6:57 AM EXHAUST MACHINE OPERATOR THYROID FUNCTION CASCADE Routine 09/17/2024 4:10 AM EXHAUST MACHINE OPERATOR HEMOGLOBIN A1C Routine 09/13/2024 1:46 AM EXHAUST MACHINE OPERATOR COLONOSCOPY REPORT 06/07/2014 from Last 3 Months [...] Result * (ABNORMAL) eGFR (10/01/2024 6:57 AM EXHAUST MACHINE OPERATOR) eGFR 54(L) >=60 mL/min/1. 73 m2 Comment: [...] last reviewed 2021. Blood 10/01/2024 6:57 AM EXHAUST MACHINE OPERATOR 10/01/2024 7:30 AM EXHAUST MACHINE OPERATOR us Timothy Augustin MD LAB BLOOD ORDERABLES Final Re sult [facility] [address] Department [place] [facility] [address] * Thyroid Function [place] (09/17/2024 4:10 AM EXHAUST MACHINE OPERATOR) TSH 1.79 0.30 - 4.20 mcIUnit/mL Blood 09/17/2024 4:10 AM EXHAUST MACHINE OPERATOR 09/17/2024 4:10 AM EXHAUST MACHINE OPERATOR Elidaflorence Schumacher Musa WELCH LAB BLOOD ORDERABLES F inal Result Performing Organization Address [facility] de Phone Number [facility] [address] Department [facility] [address] * (ABNORMAL) Hemoglobin A1c (09/13/2024 1:46 AM EXHAUST MACHINE OPERATOR) Hgb A1C 9.1(H) 4.0 - 5.6 % Estimated Average Glucose 214 mg/dL [facility] Comment: The ADA recommends reporting an estimated Average Glucose (eAG) with all Hemoglobin A1c results using the equation derived from a study of 507 normal and diabetic adults. Minority populations were underrepresented and children were not included. (Diabetes Care 31:0132-4311, 2008). The eAG is not equivalent to a fasting glucose. Blood 09/13/2024 1:46 AM EXHAUST MACHINE OPERATOR 09/13/2024 1:53 AM EXHAUST MACHINE OPERATOR Carl Abreu MD LAB BLOOD ORDERABLES Final R esult Performing Organization Address [facility] Co de Phone Number [facility] [address] [place] [address] * COLONOSCOPY REPORT (06/07/2014) Anatomical Region Laterality Modality Other Narrative 06/07/2014 Ordered by an unspecified provider. Historical Provider GI PROCEDURE ORDERABLES F inal Result from Last 3 Months or Most Recently Relevant to Health Maintenance Insurance [facility] MEDICARE ADVANTAGE [facility] [place] [facility]ISION [facility] MEDICARE ADVANTAGE IDPA IDPA [facility] MEDICARE ADVANTAGE MEDICARE Advance Directives For more information, please contact: [phone] Documents on File Type Date Recorded Patient Data Officer Expl anation ADVANCE DIRECTIVE 11/10/2024 2:31 PM [...] MILLAN Daughter in Law Health Care Agent [phone] (Mobile ) Care Teams Acid Crane Operator Relationship Specialty Start Date End Date Donte Lucas PA [address] [place] [address] PCP - General Physician Wild Oyster Harvester 08/26/24
--- OUTSIDE RECORDS SUMMARY | 2025-01-13 11:42 | XMS_ITS | Clinical Summary ---
Author Organization [employer] [facility] Address [address] [facility] [place] [address] Phone Care Team Providers Care Asphalt Roller Operator Name Role Phone Arnoldo Gary MD Primary Care Provider [phone] Allergies Active Allergy Reactions Criticality Noted Date [...] t be different from the original. SUPERVISOR COKE HANDLING: DR. 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 Gender Identity Not on file Sexual Orientation [...] 2) 2024 Medical Devices Implanted Type Area Wire Spinner Device Identifier Shelf Expiration Date Model / Serial / Lot Tfna Fenestrated Screw 90mm Implanted:Qty: 1 on 03/27/2021 by Bob Deras MD at [facility] Screw Left: Hip [employer] 02/06/2031 04.038.19 0 S / / [id number] Screw Loc Stardrv 5x62mm Strl 04.005.552s - Sload 23 Implanted:Qty: 1 on 03/27/2021 by Bob Deras MD at [facility] Screw Left: Hip [employer]AT[employer] 04.005.55 2 S / LOAD 03/14/21 11mm/125deg Ti Js Tfna 380mm/Left Implanted:Qty: 1 on 03/27/2021 by Bob Deras MD at [facility] Left: Hip [employer] [facility] 01/07/2030 04.037.12 9 S / / [id number] Description:All Synthes comp onents are processed on requisition, [id number]. Procedures Procedure Name Priority Date/Time Associated Diagnosis Comments HEMOGLOBIN A1C Stat 04/25/2022 3:22 AM CDT LIPID PANEL Routine 04/20/2021 5:30 AM CDT MICROALBUMIN/CREATIN INE RATIO, RANDOM UR Routine 06/26/2014 Diabetes mellitus ([facility]) from Last 3 Months or Most Recently Relevant to Health Maintenance Results * (ABNORMAL) HEMOGLOBIN A1C (04/25/2022 3:22 AM CDT) HEMOGLOBIN A1C 8.2(H) <=5.6 % 04/25/2022 4:13 AM CDT [facility] EST. AVG GLUCOSE, A1C 189 mg/dL 04/25/2022 4:13 AM CDT [facility] Blood Venipuncture / Unknown 04/25/2022 3:22 AM CDT 04/25/2022 3:43 AM CDT Narrative [facility] - 04/25/2022 4:13 AM CDT HGB A1C INTERPRETATION NORMAL: <5.7% PRE-DIABETES: 5.7 - 6.4% DIABETES: 6.5% OR GREATER us Alphonse Samson MD CHEMISTRY ORDERABLES Final Result [facility] CLIA # [id number] [address] [place] [address] * (ABNORMAL) LIPID PANEL (04/20/2021 5:30 AM CDT) CHOLESTEROL 166 <200 mg/dL 04/20/2021 6:55 AM CDT [facility] TRIGLYCERIDE 83 <150 mg/dL 04/20/2021 6:55 AM T [facility] HDL 40 40 - 59 mg/dL 04/20/2021 6:55 AM T [facility] LDL CALCULATED 109(H) <100 mg/dL 04/20/2021 6:55 AM T [facility] NON-HDL CHOLESTEROL 126 <130 mg/dL 04/20/2021 6:55 AM T [facility] Blood Venipuncture / Unknown 04/20/2021 5:30 AM CDT 04/20/2021 6:21 AM CDT Narrative [facility] - 04/20/2021 6:55 AM CDT TOTAL [...] Ranges for Lipid Panels (NCEP/AMA) . [facility] Tawana Kelly MD CHEMISTRY ORDERABLES Final Result [facility]# [id number] [address] [place] [address] * MICROALBUMIN/CREATININE RATIO, RANDOM UR (06/26/2014) Urine specimen (specimen) Orquidea Delgado MD URINE ORDERABLES Final Result [facility] # [id number] [address] [place] [address] from Last 3 Months or Most Recently Relevant to Health Maintenance Additional Health Concerns Infection Onset Date Last Indicated MRSA Comment:hx MRSA documented per 12/22/17 infectious disease screening form - Cierra Becker RN 12/24/2017 05/09/[address] [place] [address] MEDICAID [facility] MEDICARE Advance Directives For more information, please contact: [phone] * Full Code (Latest Code Status on File) Date Activated Date Inactivated Comments 04/25/2022 2:46 AM 04/29/2022 5:00 PM * Full Code Date Activated Date Inactivated Comments 05/08/2021 5:35 PM 05/24/2021 5:02 PM * Full Code Date Activated Date Inactivated Comments 03/27/2021 7:30 AM 05/08/2021 5:20 PM Care Teams Asphalt Roller Operator Relationship Specialty Start Date End Date Arnoldo Gary MD [address] [place] [phone] PCP - General Internal Medicine 03/27/21
--- OUTSIDE RECORDS SUMMARY | 2025-01-13 11:42 | XMS_ITS | Clinical Summary ---
Author Organization [facility] Address [address] [place] [address] Care Team Providers Care Quality Audit Representative Name Role Phone Clement Pinto APRN-PANEL MACHINE SETTER Primary Care Provider Source Comments [facility],non-owned Affiliates and Associated Physician Practices is amultiple site organization consisting of ambulatory clinics and hospital sitesin [place], [place], [place] and [place]. This disclosure is being madepursuant to the Care Everywhere program and may not contain all information available regarding this patient. Last updated 18.[facility] Allergies Active Allergy Reactions Criticality Noted Date [...] by mouth once daily Active HYDROcodone-pankaj taminophen (Bauxite) 5-325 MG tabletIndicatio ns:Post-operati ve state Take [...] on file Legal Sex Female 10:39 AM DIRECTOR TRANSLATIONAL Gender Identity Not on file Sexual Orientation [...] patient's age to complete this topic [place] [address] [place] [address] [facility] Address: [phone] [place] [phone] [facility] MEDICAID - [place] MEDICARE MEDICAID [employer] [facility] MANAGED MEDICARE ADV Care Teams Quality Audit Representative Relationship Specialty Start Date End Date Clement Pinto APRN-PANEL MACHINE SETTER [address] [facility] [place] [phone] PCP - General Nurse Practitioner Family 05/13/23
[2025-01-13 11:44] LABS: Basophils Absolute Auto 0.07 K/mm3 (0.00-0.10); Basophils Percent Auto 0.9 % (0.0-1.0); Eosinophils Absolute Auto 0.19 K/mm3 (0.02-0.50); Eosinophils Percent Auto 2.5 % (1.0-6.0); Hematocrit 41.4 % (35.0-49.0); Immature Granulocyte Absolute 0.03 K/mm3 (0.00-0.00); Immature Granulocyte Percent A 0.4 % (0.0-0.0); Lymphocytes Absolute Auto 1.67 K/mm3 (1.10-4.50); Lymphocytes Percent Auto 21.6 % (18.0-42.0); Mean Corpuscular Hemoglobin 26.7 pg (27.0-31.0); Mean Platelet Volume 11.1 fl (9.2-11.8); Monocytes Absolute Auto 0.58 K/mm3 (0.10-0.90); Monocytes Percent Auto 7.5 % (2.0-11.0); Neutrophils Percent Auto 67.1 % (50.0-70.0); Platelet Count Result 170 K/mm3 (150-420); Red Cell Distribution Width 15.8 % (11.6-14.4); White Blood Count 7.7 K/mm3 (4.8-10.8)
[2025-01-13 11:59] LABS: Lactic Acid Reflex 1.8 mmol/L (0.4-2.0)
[2025-01-13 12:00] LABS: Alanine Aminotransferase 18 U/L (6-35); Alkaline Phosphatase 173 U/L (38-126); Anion Gap 8 mmol/L (4-12); Aspartate Amino Transferase 40 U/L (14-36); Bilirubin,Total 0.8 mg/dL (0.2-1.3); Blood Urea Nitrogen 83 mg/dL (7-17); Calcium 8.8 mg/dL (8.4-10.2); Carbon Dioxide 22 mmol/L (22-30); Chloride 104 mmol/L (98-107); Estimated CRCL calculation 38 ml/min; Estimated Glomerular Filt Rate 29; Glucose 207 mg/dL (65-110); Osmolality Calculated 309 mOsm/kg (285-295); Sodium 134 mmol/L (137-145); Total Protein 8.1 g/dL (6.3-8.2)
[2025-01-13 12:05] LABS: Potassium 6.8 mmol/L (3.4-5.0)
[2025-01-13 12:11] LABS: Troponin I 0.013 ng/mL (0.000-0.034)
[2025-01-13] MEDS: INSULIN HUMAN REGULAR (*BKC) 1,000 UNITS/10 ML VIAL 10 UNITS IV PUSH (12:42)
[2025-01-13] MEDS: SODIUM CHLORIDE 0.9% IV 1,000 ML 999 ML IV CONT (12:43)
[2025-01-13] MEDS: DEXTROSE 50% 25 GM/50 ML SYRINGE IV PUSH (12:43)
[2025-01-13 12:56] LABS: NT Pro B Type Natriuretic Pept 1340 pg/mL (19.9-100)
--- NOTE | 2025-01-13 12:57 | PC.NURSE ---
pt resting per cot. call eugene in reach. iv fluids infusing without difficulty to left index finger. lights out for comfort.
[2025-01-13 13:06] LABS: Influenza A QL RT-PCR Negative (Negative); Influenza B QL RT-PCR Negative (Negative); RSV RNA, RT-PCR Negative (Negative); SARS-CoV-2 RNA PCR Negative (Negative)
--- NOTE | 2025-01-13 14:03 | PC.NURSE ---
call to room, pt having twitching in head/neck. pt daughter states she does this when she gets overheated or cold. no treatment.will subside. pt stated prior to twitching that she was cold. pt has warm blankets x3 on. call eugene in reach. dr bishop notified.
--- NOTE | 2025-01-13 14:06 | PC.NURSE ---
no twitching noted, pt able to drink water from straw without difficulty.
[2025-01-13 14:26] LABS: Anion Gap 8 mmol/L (4-12); Blood Urea Nitrogen 76 mg/dL (7-17); Calcium 8.9 mg/dL (8.4-10.2); Carbon Dioxide 22 mmol/L (22-30); Chloride 107 mmol/L (98-107); Estimated CRCL calculation 39 ml/min; Estimated Glomerular Filt Rate 29; Glucose 223 mg/dL (65-110); Osmolality Calculated 313 mOsm/kg (285-295); Potassium 4.9 mmol/L (3.4-5.0); Sodium 137 mmol/L (137-145)
--- NOTE | 2025-01-15 14:18 | PC.NURSE ---
PRELIMINARY BLOOD CULTURE REPORT; NO GROWTH TO DATE.
--- NOTE | 2025-01-19 15:19 | PC.NURSE ---
FINAL BLOOD CULTURE REPORT; NO GROWTH AFTER 5 DAYS.
== END 2025-01-13 15:08 | disposition home or self-care (01) ==
PROVIDERS: Emergency Provider Emergency Medicine; PCP Physician Assistant
DX: N17.9 Acute kidney failure, unspecified (principal); E87.5 Hyperkalemia; E86.0 Dehydration; R09.1 Pleurisy; J40 Bronchitis, not specified as acute or chronic; E11.22 Type 2 diabetes mellitus with diabetic chronic kidney disease; N18.9 Chronic kidney disease, unspecified; J44.9 Chronic obstructive pulmonary disease, unspecified; I50.9 Heart failure, unspecified; F17.210 Nicotine dependence, cigarettes, uncomplicated; Z99.81 Dependence on supplemental oxygen; Z86.718 Personal history of other venous thrombosis and embolism; Z79.01 Long term (current) use of anticoagulants; Z20.822 Contact with and (suspected) exposure to COVID-19
CPT/HCPCS: 36415; 71046; 80048; 80053; 83605; 83880; 84484; 85025; 85380; 87040; 87637; 93005; 96361; 96374; 96375; 99284; J1815; J7030